=== PATIENT | female | born 1970 | race Caucasian/White ===

== ENCOUNTER → 2017-07-01 16:47 | Outpatient (CLI) | payer MEDICARE, MEDICAID, SELFPAY ==
--- NOTE | 2017-07-01 16:50 | CT_ITS ---
CT Spine Cervical W/O Contrast INDICATION: Cervical radiculopathy-right. Prior lumbar surgery, diabetes. COMPARISON: None TECHNIQUE: High-resolution axial CT imaging of the cervical spine. Radiation dose optimization technique applied. FINDINGS: There is mild cervical kyphosis, which may be positional. Height of the vertebral bodies is preserved. Anterior osteophytes are noted and C3-4 and C5-6. Uncovertebral joint arthritic changes are noted at C3-4. There is no evidence of osseous spinal canal or neuroforaminal narrowing at any level. There is no evidence of acute fracture. Prevertebral soft tissue stripe is within normal limits. Mild vascular calcifications are noted at the left carotid bifurcation. Thyroid gland is diffusely heterogenous and the left lobe of the thyroid is enlarged with a dominant 1 cm nodule, consider further evaluation with ultrasound if clinically warranted. CT/Spine Cervical without Contras IMPRESSION: Mild degenerative changes at the cervical spine. No evidence of acute fracture. Heterogenous enlargement of the thyroid gland with a 1 cm left thyroid nodule, follow-up with ultrasound as clinically warranted. at 2300 Reported and signed by: Rebekah Hatch MD Electronically Signed: Rebekah Hatch MD at 21:59 EST Tel , Service support ,
== END ==
PROVIDERS: Family Provider Family Medicine; PCP Family Medicine; Visit Provider Family Medicine
DX: M54.12 Radiculopathy, cervical region (principal)
CPT/HCPCS: 72125

== ENCOUNTER 2017-08-25 02:45 | Emergency (ER) | payer MEDICARE, MEDICAID, SELFPAY ==
[2017-08-25 02:47] VITALS: BP 159/68; PULSE 87; RESP 17; TEMP 36.9; O2SAT 97; BMI 37.8
--- NOTE | 2017-08-25 03:10 | CT_ITS ---
STUDY: CT ABDOMEN AND PELVIS WITHOUT CONTRAST REASON FOR EXAM: Female, 46 years old. Abdominal pain RADIATION DOSAGE (If Supplied By Facility): CTDIvol = ( 18.04 ) mGy, DLP = ( 906.14 ) mGycm TECHNIQUE: Transaxial images were obtained from the dome of the diaphragm to the symphysis pubis without oral contrast, and without intravenous contrast. Sagittal and coronal images were reconstructed. Individualized dose optimization techniques were used for this CT. COMPARISON: 06/26/2014 FINDINGS: The visualized lung bases are unremarkable. The visualized portions of the heart are within normal limits. Normal liver. There are surgical clips in the gallbladder fossa consistent with a prior cholecystectomy. Normal spleen. Normal pancreas. Normal bilateral adrenal glands. Nonobstructing right renal calculi. Normal left kidney. Normal visualized stomach. A small duodenal diverticulum is noted. There are multiple colonic diverticula consistent with diverticulosis. There is non-visualization of the appendix. Normal abdominal aorta. Normal inferior vena cava. Normal retroperitoneum. Normal urinary bladder. Probable 2.9 cm left ovary cyst. Normal abdominal wall. Thoracic spine stimulator. L5 laminectomies. CT/Abdomen/Pelvis without Cont IMPRESSION: No evidence of acute intestinal pathology or acute obstructive uropathy. Duodenal diverticulum. Probable 2.9 cm left ovary cyst. Electronically Signed: Victorino Neumann MD at 4:12 EDT Tel , Service support ,
[2017-08-25] MEDS: Morphine 4 MG/ML Syringe IV (03:17)
[2017-08-25] MEDS: Ondansetron 4 MG/2 ML Vial IV (03:18)
--- NOTE | 2017-08-25 03:21 | ED.VISSUMM ---
- ER Visit Summary Date of Service: 08/25/17 Chief Complaint: Abdominal pain History of Present Illness: The patient is a 46 F intermittent mid abdominal pain since Tuesday. Pain worse this evening, more severe. 3 days ago symptoms seem to improve with vomiting. Has not vomited since. Tolerating oral fluids. Normal bowel movement prior to arrival. History of cholecystectomy, appendectomy, partial hysterectomy with right oophorectomy. No history of pancreatitis. No alcohol history. Last meal was supper. Chills without sweats. No urinary symptoms. No previous similar symptoms in the past. Patient on tramadol for history of multiple back surgeries. Does not follow general surgeon. No history of bowel obstructions. Physical Examination: General: Alert and oriented ?3, uncomfortable HEENT: Normocephalic, atraumatic. Moist mucosa membranes Neck: supple, nontender. Cardiovascular: Regular rate and rhythm, no murmurs Respiratory: Normal breath sounds, symmetric, no distress Abdomen: Soft, mild mid abdominal tenderness without guarding or rebound. Hypoactive bowel sounds. Extremities: Nontender, no edema, pulses intact ?4 Neuro: no focal neurological deficits. Test Results: WBC 7.9, Hemoccult 14.2. Lipase 197. Liver enzymes normal. CT abdomen pelvis: No acute disease. Left 2.9 cm left ovarian cyst. Emergency Department Course and Treatment: Patient uncomfortable on examination. History of multiple bowel surgeries. Abdominal labs were negative. Initially treated with morphine and Zofran and fluids. Addition Dilaudid was given. CT abdomen pelvis notes no intra-abdominal process. No signs of obstruction. Incidental finding 2.9 cm left ovarian cyst. Reevaluation symptoms much more improved. Abdomen remains soft. Patient had normal bowel movement prior to arrival. Discussed with patient monitoring symptoms. She will be placed on Bentyl. She develops nausea and vomiting, decreased flatus or worsening symptoms to return for reevaluation. She will follow-up with [facility] for her ovarian cysts. All questions were answered. Treatment Plan: [] Disposition: Discharge Impression: 1. Nonspecific abdominal pain 2. Left ovarian cysts This note was generated with [employer] software. It may contain incorrect words, spelling, and punctuation that were not noted in review of the chart prior to signing ED Disposition - Plan for ED Patient: Disposition: Home or Assisted Living Chief Complaint: Abd Pain Diagnosis: Nonspecific abdominal pain, Left ovarian cyst Instructions: ED Abdominal Pain Unkn Cause, What Are Ovarian Cysts? Prescriptions: Dicyclomine HCl [Bentyl] 10 mg PO Q6H PRN PRN #12 capsule PRN Reason: abdominal pain Referrals: Margo Tatum DO [Primary Care Provider] - 3-5 Days if not improving Lyudmila Garrido MD [STAFF PHYSICIAN] - 5-7 Days Additional Instructions: 2.9cm left ovarian cyst.
[2017-08-25 03:24] LABS: Absolute Lymphocyte Count 1.55 X10^3/ul (0.83-4.51); Absolute Neutrophil Count 5.8 X10^3/uL (2.0-7.7); Basophil# 0.01 X10^3/uL; Basophil% 0.1 % (0-1); Eosinophil# 0.06 X10^3/uL; Eosinophils% 0.8 % (0-5); Hematocrit 42.8 % (37-47); Hemoglobin 14.2 g/dl (12.0-15.0); Lymphocyte # 1.55 X10^3/ul (4.0); Lymphocyte % 19.5 % (19-41); Mean Corp Hgb Conc 33.2 g/gl (32-36); Mean Corpuscular Hgb 31.2 pg (27.0-32.0); Mean Corpuscular Volume 94.1 fL (81-99); Monocyte# 0.53 X10^3/uL; Monocyte% 6.7 % (0-10); Neutrophil # 5.78 X10^3/uL (2.7-7.7); Neutrophil % 72.8 % (47-70); Platelet Count 264 K/mm3 (150-450); RBC Distribution Width CV 15.2 % (11.6-14.6); Red Blood Count 4.55 M/mm3 (4.2-5.4); White Blood Count 7.9 K/mm3 (4.4-11.0)
[2017-08-25 03:25] LABS: POSITIVE COUNT NO; POSITIVE DIFFERENTIAL NO; POSITIVE MORPHOLOGY NO
[2017-08-25] MEDS: HYDROmorphone 1 MG/ML Syringe IV (03:52)
[2017-08-25 03:58] LABS: ALB/GLOB Ratio 0.8 RATIO (0.9-2.4); AST(SGOT) 21 U/L (15-37); Alanine Aminotransfer ALT/SGPT 22 U/L (13-56); Albumin, Serum 3.6 g/dL (3.2-5.0); Alkaline Phosphatase 57 U/L (45-117); Anion Gap 7 (5-15); BUN 13 mg/dL (7-18); BUN/Creat Ratio 18.1 RATIO (10-20); Calcium,Total 8.8 mg/dL (8.5-10.1); Chloride 105 mmol/L (98-107); Creatinine, Serum 0.72 mg/dL (0.55-1.02); EST Glomerular Filtration Rate 92 mL/min (>60); Est Glom Filt Rate - Afr Amer 112 mL/min (>60); Estimated Creatinine Clearance 83.41 ml/min; Globulin 4.7 g/dL (2.2-4.2); Glucose 112 mg/dL (74-106); Lipase 197 U/L (73-393); Potassium 3.8 mmol/L (3.5-5.1); Protein, Total 8.3 g/dL (6.4-8.2); Sodium Level 140 mmol/L (136-145)
[2017-08-25] MEDS: Dicyclomine 10 MG Capsule 20 MG PO (04:37)
[2017-08-25 04:40] VITALS: BP 140/75; PULSE 80; RESP 16; O2SAT 95
== END 2017-08-25 04:44 | disposition home or self-care (01) ==
PROVIDERS: Emergency Provider Emergency Medicine; Family Provider Family Medicine; PCP Family Medicine
DX: R10.9 Unspecified abdominal pain (principal); N83.202 Unspecified ovarian cyst, left side; Z79.899 Other long term (current) drug therapy; Z90.49 Acquired absence of other specified parts of digestive tract; Z90.710 Acquired absence of both cervix and uterus
CPT/HCPCS: 74176; 80053; 83690; 85025; 96361; 96374; 96375; 99284; J7030; J7040; A4216; J2405

== ENCOUNTER → 2017-10-03 12:19 | Outpatient (CLI) | payer MEDICARE, MEDICAID, SELFPAY ==
--- NOTE | 2017-10-03 12:22 | US_ITS ---
STUDY: ULTRASOUND OF THE FEMALE PELVIS - COMPLETE REASON FOR EXAM: Female, 46 years old. Ovarian cyst follow-up LMP: Unknown. TECHNIQUE: Transabdominal, patient refused transvaginal probe TECHNICAL QUALITY: Adequate. COMPARISON: CT scan from 08/25/2017 FINDINGS: The uterus has been previously removed The right ovary was previously removed The left ovary is visualized. The left ovary measures 3.7 x 3.4 x 2.7 cm. There is a complex 1.4 x 1.9 x 3.1 cm cyst. There is normal arterial and normal venous vascularity. There is no fluid in the cul-de-sac. The bladder is sonographically normal US/Pelvic (Non ) IMPRESSION: Complex left ovarian cyst measuring 3.1 cm. Its size is unchanged from the previous CT. Previous removal of the uterus and right ovary No demonstrated free fluid Electronically Signed: Ramu Diamond MD at 13:24 EDT , Service support ,
== END ==
PROVIDERS: Family Provider Family Medicine; PCP Family Medicine; Visit Provider Family Medicine
DX: R10.2 Pelvic and perineal pain (principal); N83.209 Unspecified ovarian cyst, unspecified side
CPT/HCPCS: 76856

== ENCOUNTER → 2017-10-21 12:21 | Outpatient (CLI) | payer MEDICARE, MEDICAID, SELFPAY ==
[2017-10-21 13:01] LABS: Amphetamine Urine VISTA NEGATIVE (<1000 ng/mL); Barbiturate Urine VISTA NEGATIVE (< 200 ng/mL); Benzodiazepine Urine VISTA NEGATIVE (< 200 ng/mL); Cocaine Urine VISTA NEGATIVE (< 300 ng/mL); Ecstacy Urine VISTA NEGATIVE (< 500 ng/mL); Methadone Urine VISTA NEGATIVE (< 300 ng/mL); PCP Urine VISTA NEGATIVE (< 25 ng/mL); THC Urine VISTA NEGATIVE (< 50 ng/mL); Vista UDS pH Range 8
== END ==
PROVIDERS: Family Provider Family Medicine; PCP Family Medicine; Visit Provider Anesthesiology Pain Medicine
DX: F11.20 Opioid dependence, uncomplicated (principal)
CPT/HCPCS: 80307

== ENCOUNTER → 2017-11-14 08:58 | Outpatient (CLI) | payer MEDICARE, MEDICAID, SELFPAY ==
--- NOTE | 2017-11-14 08:58 | DT_ITS ---
This patient was seen during an EMR downtime November 07, 2017 - November 14, 2017. This patient may have a combination of paper and electronic documentation or all paper documentation. All documentation is viewable within the e-chart portion of [facility] for each patient visit.
--- NOTE | 2017-11-14 09:02 | US_ITS ---
STUDY: ULTRASOUND OF THE FEMALE PELVIS - COMPLETE REASON FOR EXAM: Female, 46 years old. Six-week follow-up ovarian cyst. History of hysterectomy and right oophrectomy. TECHNIQUE: Transabdominal and Transvaginal TECHNICAL QUALITY: Adequate. COMPARISON: October 03, 2017. FINDINGS: The uterus is surgically absent. The right ovary is surgically absent. There are no visualized right adnexal masses or complex lesions. The left ovary is not visualized. There is no visualized left adnexal mass or complex lesion. There is no fluid in the cul-de-sac. The urinary bladder is grossly unremarkable. US/Pelvic (Non ) IMPRESSION: 1. Status post resection of the uterus and right ovary. 2. The left ovary is not visualized. Electronically Signed: Avi Kapoor DO at 16:20 EDT Tel [phone], Service support ,
== END ==
PROVIDERS: Family Provider Family Medicine; PCP Family Medicine; Visit Provider Family Medicine
DX: N83.209 Unspecified ovarian cyst, unspecified side (principal); Z90.710 Acquired absence of both cervix and uterus; Z90.721 Acquired absence of ovaries, unilateral
CPT/HCPCS: 76856

== ENCOUNTER → 2017-12-14 13:04 | Outpatient (CLI) | payer MEDICARE, MEDICAID, SELFPAY ==
--- NOTE | 2017-12-14 13:21 | CDU_ITS ---
Reason For Study: Family Hx of Carotid Disease Rt. Velocities/BP Lt. Velocities/BP Prox CCA 103/23 cm/sec. Prox CCA 121/35 cm/sec. Mid CCA 87/19 cm/sec. Mid CCA 79/25 cm/sec. Dist CCA 65/22 cm/sec. Dist CCA 70/26 cm/sec. Prox ICA 71/28 cm/sec. Prox ICA 76/26 cm/sec. Mid ICA 81/31 cm/sec. Mid ICA 100/45 cm/sec. Dist ICA 85/36 cm/sec. Dist ICA 108/45 cm/sec. Rt. ICA/CCA = 0.97. Lt. ICA/CCA = 1.36. Prox ECA 82/13 cm/sec. Prox ECA 84/18 cm/sec. Rt. Vert. 72/25 cm/sec. Lt. Vert. 42/15 cm/sec. Right Extracranial There is intimal thickening but no significant atherosclerotic plaque noted in the right common carotid artery. There is homogeneous, smooth atherosclerotic plaque noted in the right internal carotid artery. There is no significant atherosclerotic plaque noted in the right external carotid artery. Antegrade flow is noted in the right vertebral artery. Left Extracranial There is intimal thickening but no significant atherosclerotic plaque noted in the left common carotid artery. There is heterogeneous, irregular atherosclerotic plaque noted in the left internal carotid artery. There is no significant atherosclerotic plaque noted in the left external carotid artery. Antegrade flow is noted in the left vertebral artery. Procedure Carotid Duplex 71724. Exam performed in department. Interpretation Summary Mild (<50%) stenosis right extracranial internal carotid. Mild (<50%) stenosis left extracranial internal carotid. Flow within the vertebral arteries is antegrade bilaterally. Ordering Physician: Aidan Baird Referring Physician: Aidan Baird Performed By: Randa Mitchell, NEEL, RVT
== END ==
PROVIDERS: Family Provider Family Medicine; PCP Family Medicine; Visit Provider Family Medicine
DX: I65.23 Occlusion and stenosis of bilateral carotid arteries (principal); I77.9 Disorder of arteries and arterioles, unspecified; I25.10 Atherosclerotic heart disease of native coronary artery without angina pectoris; M54.2 Cervicalgia
CPT/HCPCS: 93880

== ENCOUNTER 2018-02-03 23:41 | Emergency (ER) | payer MEDICARE, MEDICAID, SELFPAY ==
[2018-02-03 23:42] VITALS: BP 135/83; PULSE 96; RESP 18; TEMP 36.8; O2SAT 96; BMI 37.8
--- NOTE | 2018-02-04 00:39 | ED.VISSUMM ---
- ER Visit Summary Date of Service: 02/04/18 Chief Complaint: Nausea and vomiting History of Present Illness: The patient is a 47 F nausea and vomiting since 1 PM today. One episode at home, 2 episodes at work, last time an hour ago. No hematemesis. No diarrhea. No fevers. No abdominal pain. No urinary symptoms. History of hysterectomy. Feeling nauseated currently. Physical Examination: General: Alert and oriented ?3, no acute distress HEENT: Normocephalic, atraumatic. Moist mucosa membranes Neck: supple, nontender. Cardiovascular: Regular rate and rhythm, no murmurs Respiratory: Normal breath sounds, symmetric, no distress Abdomen: Soft, nontender, nondistended Extremities: Nontender, no edema, pulses intact ?4 Neuro: no focal neurological deficits. Test Results: [] Emergency Department Course and Treatment: Patient nontoxic, nonsurgical abdomen. Vital signs stable. Treated oral Zofran, p.o. challenge no difficulties. Short prescription for nausea medicines. Continue oral hydrations. Follow-up with PCP. All questions were answered. Treatment Plan: [] Disposition: Discharge Impression: 1. Nausea and vomiting This note was generated with [employer] dictation software. It may contain incorrect words, spelling, and punctuation that were not noted in review of the chart prior to signing ED Disposition - Plan for ED Patient: Disposition: Home or Assisted Living Chief Complaint: Nausea/Vomiting Diagnosis: Nausea and vomiting Instructions: ED Nausea Vomiting Prescriptions: Ondansetron [Zofran Odt] 4 mg PO Q8H PRN PRN #10 tablet PRN Reason: Nausea Referrals: Margo Tatum DO [Primary Care Provider] - 3-5 Days
[2018-02-04] MEDS: Ondansetron ODT 4 MG Tablet 8 MG PO (00:45)
[2018-02-04 01:49] VITALS: BP 134/88; PULSE 79; O2SAT 97
== END 2018-02-04 01:51 | disposition home or self-care (01) ==
PROVIDERS: Emergency Provider Emergency Medicine; Family Provider Family Medicine; PCP Family Medicine
DX: R11.2 Nausea with vomiting, unspecified (principal); E11.9 Type 2 diabetes mellitus without complications; I10 Essential (primary) hypertension; Z87.891 Personal history of nicotine dependence; Z90.710 Acquired absence of both cervix and uterus; Z79.899 Other long term (current) drug therapy
CPT/HCPCS: 99283

== ENCOUNTER 2018-03-17 10:05 | Emergency (ER) | payer MEDICARE, SELFPAY ==
[2018-03-17 10:05] VITALS: BP 163/87; PULSE 83; RESP 17; TEMP 36.6; O2SAT 100; BMI 56.5
[2018-03-17] MEDS: HYDROmorphone 1 MG/ML Syringe IM (10:23)
[2018-03-17] MEDS: Orphenadrine 60 MG/2 ML Ampul IM (10:24)
[2018-03-17] MEDS: Ketorolac 60 MG/2 ML Vial IM (10:24)
--- NOTE | 2018-03-17 11:02 | ED.DCSUM_ITS ---
- ER Visit Summary Date of Service: 03/17/18 Chief Complaint: [Back pain] History of Present Illness: The patient is a 47 F [presents the emergency department complaint of back pain that started yesterday. Patient states that she was at work when she had sudden onset of pain in her low back and radiating down both legs. Patient states that her legs are always numb and she has a history of chronic back pain. Patient states that she has had similar pains multiple times in the past. Patient sees Dr. Solano pain management and is scheduled to have injections in her back in 5 days. Patient denies any trauma. She denies any fever. She denies urinary symptoms. Denies weakness in extremities. Patient states she lost control of her bowels one time last week but that was before all this pain started. She has not had any issue with loss of bowel or bladder function since.] Physical Examination: [HEENT-PERRLA, EOMI. Cranial nerves II through XII grossly intact. TMs clear. Mucous membranes moist. No adenopathy. Cardiovascular-regular rate and rhythm without murmur or ectopy Lungs-clear to auscultation, chest wall stable without crepitus or subcu emphysema Abdomen-normoactive bowel sounds, soft, nontender, no rebound or rigidity, no peritoneal signs. Back exam-patient has diffuse tenderness over the lumbar paraspinal musculature and into the buttocks bilaterally. Patient has negative straight leg raises. Deep tendon reflexes are plus 2 out of 4 bilaterally at the patella and Achilles. Patient does have normal sensation to light touch. Extremities-intact ?4, normal range of motion, normal pulses, atraumatic] Test Results: [None indicated] Emergency Department Course and Treatment: [Patient was medicated with Dilaudid, Toradol, and Norflex in the emergency department. Patient had good pain relief with this. Patient was discussed with her pain management doctor who was comfortable with a few pain pills for home and follow-up with his office.] Treatment Plan: [Patient will be given a prescription for Flexeril and [place].] Disposition: [Discharged home in stable condition] Impression: [Acute exacerbation of chronic back pain] This note was generated with [employer] software. It may contain incorrect words, spelling, and punctuation that were not noted in review of the chart prior to signing ED Disposition - Plan for ED Patient: Chief Complaint: Back Referrals: Malys,Margo, DO [Primary Care Provider] -
--- NOTE | 2018-03-17 11:04 | DCINST.ED_ITS ---
ED Disposition - Plan for ED Patient: Chief Complaint: Back Instructions: ED Neck Back Pain General, ED Spasm Back No Trauma Prescriptions: Hydrocodone Bitart/Apap 5-325 [[place] 5MG-325MG] 1 tab PO Q4H PRN PRN 2 Days #10 tab PRN Reason: Pain Cyclobenzaprine [Flexeril] 10 mg PO TID PRN #20 tab PRN Reason: Muscle Spasm Referrals: Margo Tatum DO [Primary Care Provider] - Darline Solano MD [STAFF PHYSICIAN] - 3-5 Days
[2018-03-17 11:48] VITALS: PULSE 72; RESP 16; O2SAT 99
== END 2018-03-17 11:48 | disposition home or self-care (01) ==
LOC: ED 10:42
PROVIDERS: Emergency Provider Emergency Medicine; Family Provider Family Medicine; PCP Family Medicine
DX: M54.5 Low back pain (principal); M54.2 Cervicalgia; G89.29 Other chronic pain; E11.9 Type 2 diabetes mellitus without complications; I10 Essential (primary) hypertension; Z79.899 Other long term (current) drug therapy
CPT/HCPCS: 96372; 99282

== ENCOUNTER → 2018-05-11 08:56 | Outpatient (CLI) | payer MEDICARE, SELFPAY ==
--- NOTE | 2018-05-11 09:01 | BI_ITS ---
MAMMOGRAPHY - BILATERAL DIAGNOSTIC REASON FOR EXAM: Female, 47 years old. One-month history of the apical lump in the upper lateral aspect of the right breast. PERTINENT HISTORY: Aunt with breast cancer. TECHNIQUE: Digital bilateral breast buddy (3D mammographic acquisition) in the CC and MLO projections. 2-D mediolateral oblique (MLO) and craniocaudad (CC) views of both breasts were obtained. CAD: Full Field Digital Mammography with Computer Added Detection was performed. COMPARISON: Comparison is made with prior examination dated June 28, 2014. FINDINGS: Breast Composition: The breasts are almost entirely fatty. There are no dominant masses or suspicious calcifications. There is a stable 5.5 mm by 6.4 mm well-defined nodular density with a central fatty hilum in the upper slightly outer portion of the right breast suggests a small lymph node. No other significant abnormalities are identified. There has been no significant change since the prior study. BI/DIAG MAMM W/CAD, BILAT IMPRESSION: Stable bilateral diagnostic mammogram. With the patient's history of a palpable abnormality in the upper outer quadrant of the right breast, correlation with ultrasound is recommended. ASSESSMENT CATEGORY: BIRADS Category 0: Incomplete. Need additional imaging evaluation. A letter regarding these results will be sent to the patient by the facility within 30 days. Approximately 10% of breast cancers are not detected by mammography. A normal mammogram should not delay biopsy of a clinically suspicious abnormality. Electronically Signed: Mario Alberto Joy MD at 10:36 EST Tel [phone], Service support ,
--- NOTE | 2018-05-11 09:01 | US_ITS ---
STUDY: ULTRASOUND BREAST - RIGHT REASON FOR EXAM: Female, 47 years old. Pain in the right breast. TECHNIQUE: Axial and longitudinal images of the RIGHT breast were performed with a high resolution ultrasound transducer. COMPARISON: Comparison is made with prior mammogram done earlier in the day. FINDINGS: RIGHT Breast: The upper outer quadrant of the right breast was examined by ultrasound. There is homogeneous fibroglandular tissue. No solid or cystic mass lesion is seen. US/Breast Limited Unilateral IMPRESSION: Unremarkable sonographic examination of the upper outer quadrant of the right breast. ASSESSMENT CATEGORY: BIRADS Category 1: Negative. A letter regarding these results will be sent to the patient by the facility within 30 days. Electronically Signed: Mario Alberto Joy MD at 10:20 EST Tel [phone], Service support ,
== END ==
PROVIDERS: Family Provider Family Medicine; PCP Family Medicine; Referring Provider Family Medicine; Visit Provider Family Medicine
DX: N63.10 Unspecified lump in the right breast, unspecified quadrant (principal); N64.4 Mastodynia
CPT/HCPCS: 76642; 77062; 77066; G0279

== ENCOUNTER 2018-05-13 07:52 | Emergency (ER) | payer MEDICARE, SELFPAY ==
[2018-05-13 07:54] VITALS: BP 164/91; PULSE 80; RESP 18; TEMP 36.3; O2SAT 100; BMI 38.2
--- NOTE | 2018-05-13 08:07 | CT_ITS ---
STUDY: CT CHEST WITHOUT CONTRAST REASON FOR EXAM: Female, 47 years old. Right-sided chest mass for one month RADIATION DOSAGE (If Supplied By Facility): CTDIvol = ( 18.56 ) mGy, DLP = ( 635.26 ) mGycm TECHNIQUE: Transaxial imaging was performed without the administration of intravenous contrast material. Individualized dose optimization techniques were used for this CT. COMPARISON: 06/15/2016, 04/14/2016 FINDINGS: Stable low-density lesion in the left thyroid lobe measuring up to 2 cm. Consider ultrasound correlation. Stable 3 mm nodule in the right lower lobe on image 73 of series 4. This can be considered benign given stability since April 2016. There is no demonstrated pleural abnormality. Normal heart and pericardium. Normal mediastinum. Normal hilar regions. Normal unenhanced pulmonary arteries. Normal aorta arch and descending thoracic aorta. Thoracic spine stimulator. Cholecystectomy. CT/Chest without Contrast IMPRESSION: Stable benign nodule in the right lower lobe. Stable low density lesion in the left thyroid. Consider ultrasound follow-up. No masses are seen in the right lung or chest wall. Electronically Signed: Victorino Neumann MD at 8:46 EST Tel , Service support ,
--- NOTE | 2018-05-13 08:09 | ED.VISSUMM ---
- ER Visit Summary Date of Service: 05/13/18 Chief Complaint: Right upper chest pain History of Present Illness: The patient is a 47 F who has had right upper chest pain for 1 month. She noticed a lump there at that time. She has had a mammogram and ultrasound which showed it was negative. This area is painful. She takes daily tramadol and ibuprofen and it is not helping. There has been no drainage or redness to the area. No fevers. She denies trauma. It is worse when laying on the right side. Physical Examination: Vital signs reviewed. HEENT exam unremarkable. Heart is regular rate and rhythm without murmurs. Lungs are clear to auscultation. She does have right upper chest tenderness. No palpable masses. No erythema. Abdomen is soft and nontender. Extremities reveal no edema. Skin exam normal. Neurologic exam normal. Test Results: CT scan of the chest reveals stable thyroid and lung nodules. The patient is aware of these nodules. There is no chest wall masses. She received Toradol here. She will continue her home medications and use ice on her chest wall. She will follow-up with her PCP for further evaluation. Emergency Department Course and Treatment: [] Treatment Plan: [] Disposition: Discharge Impression: Right chest wall pain. This note was generated with [employer] dictation software. It may contain incorrect words, spelling, and punctuation that were not noted in review of the chart prior to signing ED Disposition - Plan for ED Patient: Chief Complaint: Chest Other Referrals: Margo Tatum DO [Primary Care Provider] -
[2018-05-13] MEDS: Ketorolac 60 MG/2 ML Vial IM (08:46)
--- NOTE | 2018-05-13 08:50 | ED.DEP ---
ED Disposition - Plan for ED Patient: Disposition: Home or Assisted Living Chief Complaint: Chest Other Instructions: ED Contusion Chest Wall Referrals: Margo Tatum DO [Primary Care Provider] -
[2018-05-13 09:02] VITALS: PULSE 80; RESP 17; O2SAT 100
== END 2018-05-13 09:04 | disposition home or self-care (01) ==
PROVIDERS: Emergency Provider Emergency Medicine; Family Provider Family Medicine; PCP Family Medicine
DX: R07.89 Other chest pain (principal); E04.1 Nontoxic single thyroid nodule; R91.1 Solitary pulmonary nodule; E11.9 Type 2 diabetes mellitus without complications; I10 Essential (primary) hypertension; M54.9 Dorsalgia, unspecified; Z79.899 Other long term (current) drug therapy
CPT/HCPCS: 71250; 96372; 99282

== ENCOUNTER 2018-06-07 11:00 | Outpatient (RCR) | payer MEDICARE, SELFPAY ==
--- NOTE | 2018-05-24 11:43 | HP.PTEVAL ---
Patient's Visit Information PITO CLARK is a 47 year old F referred to Physical Therapy by Darline Solano MD with a diagnosis of Back pain/leg pain. Date of Evaluation: 05/24/18 Physical Therapist: Arjun Shafer, VIKTORIAT, OCS, CSCS - Visit Plan Frequency: 2-3x /Week Duration: 4-6 Weeks Plan: 2-3x/week for 3-6 weeks to start with aquatic therapy to teach core and LE strength and HS/gastroc stretches and progress to I whcih patient thinks is realisticc for her despite her fear of the water. - Subjective Findings: Dr. Solano wants her to do PT on legs for numbness and weakness. Sees Xiomara for nerve damage after a bad back surgery in 2011 when she had a ruptured disc and discectomy adn nicked spinal fluid. Has had problems since. Not worse now but is getting weaker. Has a stimulator implanted for pain. Gets tramadol every 6 hours for years. Pain is in LB 4-7 constant worse with bending and twisting. 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 Sleep is up and down. Does al Basic ADLs on own but standing in one spot in shower is worse. Sitting is usually better in good chair. Been through therapy for back pain and didn't help pain much. 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 lIVES IN SECOND FLOOR APARTMENT ADN TAKES 5 MINUTES TO GET UP STEPS DUE TO R LEG WEAKNESS. - Pain LBP central and down both legs. Pain Intensity (Out of 10): 4 Pain Intensity Range: 4, 7 - Objective Walks I slowly with a R trendelenberg. Trasnfers I but obvious pain with bed transfers. LB AROM ext mod limtied adn pianful, flexion max limited and painful. SB min limited and ipsilateral pain. Pelvic tilt needs many many VC and tactile cues to get down pat. reflexes 1/3 patella sudhir chilles. Sensation is numb B LE all the time btu can feel light touch. Stregnth is 3+/5 in LE without myotomal abnormalities. LE aROM WFL, HS and gastroc very tight. Tender to touch in LB paraspinals and into upper gluts all over bilaterally. - Goals Goal 1:: Patient I in appropriate pool based ex to minimize future problems Goal Time Frame: 4-6 Weeks Goal 2:: Patient feel 50% better in strength Goal Time Frame: 4-6 Weeks Goal 3:: Trasnfer in bed without pain increase Goal Time Frame: 4-6 Weeks Goal 4:: Exit chair without needing UE. Goal Time Frame: 4-6 Weeks - Rehabilitation Potential Physical Therapy Diagnosis: LBO degeneration and weakness in LE. Rehabilitation Potential: Questionable - Anticipated Interventions Patient/Client Instruction: Educate patient on: Condition, Plan of Care For the Purpose of:: To decrease pain, To improve muscle performance and motor function, To improve ability of physical actions for home/community/work/leisure Therapeutic Exercise to Include: Strength training, Flexibilty training, In an aquatic setting, Dynamic Lumbar Stabilization For the Purpose of:: To decrease pain, To improve muscle performance and motor function, To decrease level of supervision to perform tasks Thank you for the opportunity to evaluate your patient. For Medicare and Medicare HMO plans, please review the plan of care and approve it. It will need to be FAXED BACK to us at [phone] for Medicare purposes. For Medicare only, by signing this I certify the plan of care. Please let me know if there are questions or concerns regarding this plan of care. Physician Signature: Date:
--- NOTE | 2018-08-10 11:08 | HP.PT.NRP ---
HP - Discharge Summary (1) - Patient Information PITO CLARK was seen in my office for initial evaluation on 05/24/18. The following Plan of Care was established for this patient: Initial Frequency: 2-3x /Week Initial Duration: 4-6 Weeks - Anticipated Interventions Patient/Client Instruction: Educate patient on: Condition, Plan of Care For the Purpose of:: To decrease pain, To improve muscle performance and motor function, To improve ability of physical actions for home/community/work/leisure Therapeutic Exercise to Include: Strength training, Flexibilty training, In an aquatic setting, Dynamic Lumbar Stabilization For the Purpose of:: To decrease pain, To improve muscle performance and motor function, To decrease level of supervision to perform tasks This patient was last seen in our office 06/07/18. Pertinent comments regarding their Physical therapy will appear below: Pt seen 3 visits adn did nto attend last three scheduled. At this point it has been over two months and I will disconitnue due to nonattendance. At this point I will be discontinuing this patient from physical therapy. I would be happy to see this patient again in the future if found appropriate by the physician. Thank you! Arjun Shafer, DPT, OCS, CSCS
--- OUTSIDE RECORDS SUMMARY | 2018-08-25 15:06 | XMS RPT_ITS ---
:1970 Author Organization OHIP Support Name Relationship Address Phone D Unavailable Unavailable Unavailable W[place] ANGELINAY Unavailable [address] + [address] [place] [address] D Unavailable Unavailable Unavailable WASKIWECEZ DANI Unavailable [address] + [address] [place] [address] D Unavailable Unavailable Unavailable WASKIWECEZ DANI Unavailable [address] + [address] [place] [address] D Unavailable Unavailable Unavailable WASKIWECEZ DANI Unavailable [address] + [address] [place] [address] D Unavailable Unavailable Unavailable W[place]IWECE[place] DANI Unavailable [address] + [address] [place] [address] D Unavailable Unavailable Unavailable W[place]IWECE[place] DANI Unavailable [address] + [address] [place] [address] D Unavailable Unavailable Unavailable W[place]IWECE[place] DANI Unavailable [address] + [address] [place] [address] D Unavailable Unavailable Unavailable W[place]IWECEZ DANI Unavailable [address] + [address] [place] [address] D Unavailable Unavailable Unavailable W[place]IWECEZ DANI Unavailable [address] + [address] [place] [address] D Unavailable Unavailable Unavailable W[place]IWECE[place]ROCKY Unavailable [address] + [address] [place] [address] D Unavailable Unavailable Unavailable [place] ANGELINAY Unavailable [address] + [address] [place] [address] Care Team Providers Name Role Phone Basali, Ayman Attending Unavailable Basali, Ayman Referring Unavailable Malys, Margo Primary Care Unavailable Brie, Aidan Attending Unavailable Brie, Aidan Referring Unavailable Malys, Margo Primary Care Unavailable Malys, Margo Primary Care Unavailable Le, Miguel Attending Unavailable Miedel, Eleni Attending Unavailable Miedel, Eleni Referring Unavailable Malys, Margo Primary Care Unavailable Basali, Ayman Attending Unavailable Basali, Ayman Referring Unavailable Malys, Margo Primary Care Unavailable Miedel, Eleni Attending Unavailable Malys, Margo Primary Care Unavailable Brie, Aidan Attending Unavailable Brie, Aidan Referring Unavailable Malys, Margo Primary Care Unavailable Malys, Margo Primary Care Unavailable Le, Miguel Attending Unavailable Malys, Margo Primary Care Unavailable Ungur, Remus Attending Unavailable Miedel, Eleni Attending Unavailable Miedel, Eleni Referring Unavailable Malys, Margo Primary Care Unavailable Malys, Margo Primary Care Unavailable John Alva Attending Unavailable PROBLEMS PROBLEMS DATE TYPE CONDITION / CODE ATTENDING STATUS SOURCE 03/17/2018 Unknown M54.9 - Dorsalgia, Ungur, Remus Active [place] unspecified / Community M54.9(ICD-10) Hospital Repository 12/21/2017 Unknown 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, Hospital unspecified / Repository I77.9(ICD-10) 12/21/2017 Unknown N83.209 - Miedel, Eleni Active [place] Unspecified ovarian Community cyst, unspecified Hospital side / Repository N83.209(ICD-10) 12/21/2017 Unknown F11.20 - Opioid Basali, Ayman Active [place] dependence, Community uncomplicated / Hospital F11.20(ICD-10) Repository 12/21/2017 Unknown R10.2 - Pelvic and Miedel, Eleni Active [place] perineal pain / Community R10.2(ICD-10) Hospital Repository 12/21/2017 Unknown R10.9 - Unspecified Le, Miguel Active [facility] abdominal pain / Community R10.9(ICD-10) Hospital Repository 12/21/2017 Unknown M54.12 - BrieAidan christiansen Active [facility] Radiculopathy, Community cervical region / Hospital M54.12(ICD-10) Repository PROCEDURES PROCEDURES No Procedure Records FoundRESULTS RESULTS INITAL EVALUATION (1) Observed: 05/26/2018 Status: F Source: [place] - PT 6:[address] [facility] REPOSITORY [facility] [address] [place] [address] Fax REHABILITATION SERVICES INITIAL EVALUATION MR#: [id number] Acct: [id number] Name: PITO HENDRIX Rep #: [id number] : 1970 47 From: Arjun Shafer DPT, OCS, CSCS Referring Dr.: Darline Solano MD Status: REG RCR Insurance: [facility] *IN NETWORK SELF PAY INSURANCE Patient's Visit Information PITO HENDRIX is a 47 year old F referred to Physical Therapy by Darline Solano MD with a diagnosis of Back pain/leg pain. Date of Evaluation: 05/24/18 Physical Therapist: Arjun Shafer DPT, OCS, CSCS - Visit Plan Frequency: 2-3x /Week Duration: 4-6 Weeks Plan: 2-3x/week for 3-6 weeks to start with aquatic therapy to teach core and LE strength and HS/gastroc stretches and progress to I whcih patient thinks is realisticc for her despite her fear of the water. - Subjective Findings: Dr. Solano wants her to do PT on legs for numbness and weakness. Sees Xiomara for nerve damage after a bad back surgery in 2011 when she had a ruptured disc and discectomy adn nicked spinal fluid. Has had problems since. Not worse now but is getting weaker. Has a stimulator implanted for pain. Gets tramadol every 6 hours for years. Pain is in LB 4-7 constant worse with bending and twisting. Works at [employer] on feet and is tired and work and more sore after work. Sleep is up and down. Does al Basic ADLs on own but standing in one spot in shower is worse. Sitting is usually better in good chair. Been through therapy for back pain and didn't help pain much. 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 lIVES IN SECOND FLOOR APARTMENT ADN TAKES 5 MINUTES TO GET UP STEPS DUE TO R LEG WEAKNESS. - Pain LBP central and down both legs. Pain Intensity (Out of 10): 4 Pain Intensity Range: 4, 7 - Objective Walks I slowly with a R trendelenberg. Trasnfers I but obvious pain with bed transfers. LB AROM ext mod limtied adn pianful, flexion max limited and painful. SB min limited and ipsilateral pain. Pelvic tilt needs many many VC and tactile cues to get down pat. reflexes 1/3 patella sudhir chilles. Sensation is numb B LE all the time btu can feel light touch. Stregnth is 3+/5 in LE without myotomal abnormalities. LE aROM WFL, HS and gastroc very tight. Tender to touch in LB paraspinals and into upper gluts all over bilaterally. - Goals Goal 1:: Patient I in appropriate pool based ex to minimize future problems Goal Time Frame: 4-6 Weeks Goal 2:: Patient feel 50% better in strength Goal Time Frame: 4-6 Weeks Goal 3:: Trasnfer in bed without pain increase Goal Time Frame: 4-6 Weeks Goal 4:: Exit chair without needing UE. Goal Time Frame: 4-6 Weeks - Rehabilitation Potential Physical Therapy Diagnosis: LBO degeneration and weakness in LE. Rehabilitation Potential: Questionable - Anticipated Interventions Patient/Client Instruction: Educate patient on: Condition, Plan of Care For the Purpose of:: To decrease pain, To improve muscle performance and motor function, To improve ability of physical actions for home/community/work/leisure Therapeutic Exercise to Include: Strength training, Flexibilty training, In an aquatic setting, Dynamic Lumbar Stabilization For the Purpose of:: To decrease pain, To improve muscle performance and motor function, To decrease level of supervision to perform tasks Thank you for the opportunity to evaluate your patient. For Medicare and Medicare HMO plans, please review the plan of care and approve it. It will need to be FAXED BACK to us at [phone] for Medicare purposes. For Medicare only, by signing this I certify the plan of care. Please let me know if there are questions or concerns regarding this plan of care. Physician Signature: Date: <Electronically signed by Arjun Shafer DPT, OCS, CSCS> 05/26/18 0645 CC: Darline Solano MD; Margo Tatum DO EBG Signed DISCHARGE INSTRUCTION Observed: 05/13/2018 Status: F Source: [place] 8:[address] [facility] REPOSITORY [facility] Medical Records Department [address] [place] [address] Discharge Instruction 05/13/18 0850 MR#: [id number] Acct: [id number] Name: PITO HENDRIX Rep #: [id number] : 1970 47 From: John Alva MD PCP: Magro Tatum DO Status: REG ER ED Disposition - Plan for ED Patient: Disposition: Home or Assisted Living Chief Complaint: Chest Other Instructions: ED Contusion Chest Wall Referrals: Margo Tatum, [Primary Care Provider] - What to do if you have Problems For any increased pain, shortness of breath, bleeding, nausea or vomiting, chest pain, or any unexpected problems, contact your Primary Care Provider. Call [facility] ([phone]) or report to the closest Emergency Room. Call 911 if necessary. 05/13/18 0850 <Electronically signed by John Alva MD> Date John Alva MD Cosigner Signature (If Indicated): Date CC: Margo Tatum DO EMERGENCY DEPARTMENT Observed: 05/13/2018 Status: F Source: [place] SUMMARY 8:50 AM [facility] Medical Records Department [address] [place] [address] Emergency Department Summary 05/13/18 0809 MR#: [id number] Acct: [id number] Name: PITO HENDRIX Rep #: [id number] : 1970 47 From: John Alva MD PCP: Margo Tatum DO Status: REG ER - ER Visit Summary Date of Service: 05/13/18 Chief Complaint: Right upper chest pain History of Present Illness: The patient is a 47 F who has had right upper chest pain for 1 month. She noticed a lump there at that time. She has had a mammogram and ultrasound which showed it was negative. This area is painful. She takes daily tramadol and ibuprofen and it is not helping. There has been no drainage or redness to the area. No fevers. She denies trauma. It is worse when laying on the right side. Physical Examination: Vital signs reviewed. HEENT exam unremarkable. Heart is regular rate and rhythm without murmurs. Lungs are clear to auscultation. She does have right upper chest tenderness. No palpable masses. No erythema. Abdomen is soft and nontender. Extremities reveal no edema. Skin exam normal. Neurologic exam normal. Test Results: CT scan of the chest reveals stable thyroid and lung nodules. The patient is aware of these nodules. There is no chest wall masses. She received Toradol here. She will continue her home medications and use ice on her chest wall. She will follow-up with her PCP for further evaluation. Emergency Department Course and Treatment: [] Treatment Plan: [] Disposition: Discharge Impression: Right chest wall pain. This note was generated with [employer] dictation software. It may contain incorrect words, spelling, and punctuation that were not noted in review of the chart prior to signing ED Disposition - Plan for ED Patient: Chief Complaint: Chest Other Referrals: Margo Tatum DO [Primary Care Provider] - What to do if you have Problems For any increased pain, shortness of breath, bleeding, nausea or vomiting, chest pain, or any unexpected problems, contact your Primary Care Provider. Call [facility] ([phone]) or report to the closest Emergency Room. Call 911 if necessary. 05/13/18 0850 <Electronically signed by John Alva MD> Date John Alva MD Cosigner Signature (If Indicated): Date CC: Margo Tatum DO CHEST WITHOUT Observed: 05/13/2018 Status: F Source: [place] CONTRAST 8:[address] [facility] REPOSITORY [facility] Imaging Services [address] [place] [address] Chest without Contrast MR#: [id number] Acct: [id number] Name: PITO HENDRIX Rep #: [id number] : 1970 F 47 From: Victorino Neumann MD PCP: Margo Tatum DO Status: REG ER Study: Chest without Contrast Date of Exam: 05/13/18 Exam# [id number] Ordering Dr: John Alva MD STUDY: CT CHEST WITHOUT CONTRAST REASON FOR EXAM: Female, 47 years old. Right-sided chest mass for one month RADIATION DOSAGE (If Supplied By Facility): CTDIvol = ( 18.56 ) mGy, DLP = ( 635.26 ) mGycm TECHNIQUE: Transaxial imaging was performed without the administration of intravenous contrast material. Individualized dose optimization techniques were used for this CT. COMPARISON: 06/15/2016, 04/14/2016 FINDINGS: Stable low-density lesion in the left thyroid lobe measuring up to 2 cm. Consider ultrasound correlation. Stable 3 mm nodule in the right lower lobe on image 73 of series 4. This can be considered benign given stability since April 2016. There is no demonstrated pleural abnormality. Normal heart and pericardium. Normal mediastinum. Normal hilar regions. Normal unenhanced pulmonary arteries. Normal aorta arch and descending thoracic aorta. Thoracic spine stimulator. Cholecystectomy. CT/Chest without Contrast IMPRESSION: Stable benign nodule in the right lower lobe. Stable low density lesion in the left thyroid. Consider ultrasound follow-up. No masses are seen in the right lung or chest wall. Electronically Signed: Victorino Neumann MD at 8:46 EST Tel , Service support , CC: John Alva MD; Margo Tatum DO Casing Crew: Signed BREAST LIMITED Observed: 05/11/2018 Status: F Source: [place] UNILATERAL 9:[address] [facility] REPOSITORY [facility] Imaging Services [address] [place] [address] Breast Limited Unilateral MR#: [id number] Acct: [id number] Name: PITO HENDRIX Rep #: [id number] : 1970 F 47 From: Mario Alberto Joy MD PCP: Margo Tatum DO Status: REG CLI Study: Breast Limited Unilateral Date of Exam: 05/11/18 Exam# [id number] Ordering Dr: Eleni Calle MD STUDY: ULTRASOUND BREAST - RIGHT REASON FOR EXAM: Female, 47 years old. Pain in the right breast. TECHNIQUE: Axial and longitudinal images of the RIGHT breast were performed with a high resolution ultrasound transducer. COMPARISON: Comparison is made with prior mammogram done earlier in the day. FINDINGS: RIGHT Breast: The upper outer quadrant of the right breast was examined by ultrasound. There is homogeneous fibroglandular tissue. No solid or cystic mass lesion is seen. US/Breast Limited Unilateral IMPRESSION: Unremarkable sonographic examination of the upper outer quadrant of the right breast. ASSESSMENT CATEGORY: BIRADS Category 1: Negative. A letter regarding these results will be sent to the patient by the facility within 30 days. Electronically Signed: Mario Alberto Joy MD at 10:20 EST Tel [phone], Service support , CC: Eleni Calle MD; Margo Tatum DO Casing Crew: Signed DIAG MAMM W/CAD, Observed: 05/11/2018 Status: F Source: [place] BILAT 9:[address] [facility] REPOSITORY [facility] Imaging Services [address] [place] [address] DIAG MAMM W/CAD, BILAT MR#: [id number] Acct: [id number] Name: PITO HENDRIX Rep #: [id number] : 1970 F 47 From: Mario Alberto Joy MD PCP: Margo Tatum DO Status: REG CLI Study: DIAG MAMM W/CAD, BILAT Date of Exam: 05/11/18 Exam# [id number] Ordering Dr: Eleni Calle MD MAMMOGRAPHY - BILATERAL DIAGNOSTIC REASON FOR EXAM: Female, 47 years old. One-month history of the apical lump in the upper lateral aspect of the right breast. PERTINENT HISTORY: Aunt with breast cancer. TECHNIQUE: Digital bilateral breast buddy (3D mammographic acquisition) in the CC and MLO projections. 2-D mediolateral oblique (MLO) and craniocaudad (CC) views of both breasts were obtained. CAD: Full Field Digital Mammography with Computer Added Detection was performed. COMPARISON: Comparison is made with prior examination dated June 28, 2014. FINDINGS: Breast Composition: The breasts are almost entirely fatty. There are no dominant masses or suspicious calcifications. There is a stable 5.5 mm by 6.4 mm well-defined nodular density with a central fatty hilum in the upper slightly outer portion of the right breast suggests a small lymph node. No other significant abnormalities are identified. There has been no significant change since the prior study. BI/DIAG MAMM W/CAD, BILAT IMPRESSION: Stable bilateral diagnostic mammogram. With the patient's history of a palpable abnormality in the upper outer quadrant of the right breast, correlation with ultrasound is recommended. ASSESSMENT CATEGORY: BIRADS Category 0: Incomplete. Need additional imaging evaluation. A letter regarding these results will be sent to the patient by the facility within 30 days. Approximately 10% of breast cancers are not detected by mammography. A normal mammogram should not delay biopsy of a clinically suspicious abnormality. Electronically Signed: Mario Alberto Joy MD at 10:36 EST Tel [phone], Service support , CC: Eleni Calle MD; Margo Tatum DO Casing Crew: Signed DISCHARGE INSTRUCTION Observed: 03/17/2018 Status: F Source: [place] 11:[address] [facility] REPOSITORY [facility] Medical Records Department [address] [place] [address] Discharge Instruction 03/17/18 1102 MR#: [id number] Acct: [id number] Name: PITO HENDRIX Rep #: [id number] : 1970 47 From: Allen Meraz DO PCP: Margo Tatum DO Status: REG ER ED Disposition - Plan for ED Patient: Chief Complaint: Back Instructions: ED Neck Back Pain General, ED Spasm Back No Trauma Prescriptions: Hydrocodone Bitart/Apap 5-325 [Yale 5MG-325MG] 1 tab PO Q4H PRN PRN 2 Days #10 tab PRN Reason: Pain Cyclobenzaprine [Flexeril] 10 mg PO TID PRN #20 tab PRN Reason: Muscle Spasm Referrals: Margo Tatum DO [Primary Care Provider] - Darline Solano MD [STAFF PHYSICIAN] - 3-5 Days What to do if you have Problems For any increased pain, shortness of breath, bleeding, nausea or vomiting, chest pain, or any unexpected problems, contact your Primary Care Provider. Call [facility] ([phone]) or report to the closest Emergency Room. Call 911 if necessary. 03/17/18 1104 <Electronically signed by Allen Meraz DO> Date Allen Meraz DO Cosigner Signature (If Indicated): Date CC: Margo Tatum DO EMERGENCY DEPARTMENT Observed: 03/17/2018 Status: F Source: [place] SUMMARY 11:[address] [facility] REPOSITORY [facility] Medical Records Department [address] [place] [address] Emergency Department Summary 03/17/18 1059 MR#: [id number] Acct: [id number] Name: PITO HENDRIX Rep #: [id number] : 1970 47 From: Allen Meraz DO PCP: Margo Tatum DO Status: REG ER - ER Visit Summary Date of Service: 03/17/18 Chief Complaint: [Back pain] History of Present Illness: The patient is a 47 F [presents the emergency department complaint of back pain that started yesterday. Patient states that she was at work when she had sudden onset of pain in her low back and radiating down both legs. Patient states that her legs are always numb and she has a history of chronic back pain. Patient states that she has had similar pains multiple times in the past. Patient sees Dr. Solano pain management and is scheduled to have injections in her back in 5 days. Patient denies any trauma. She denies any fever. She denies urinary symptoms. Denies weakness in extremities. Patient states she lost control of her bowels one time last week but that was before all this pain started. She has not had any issue with loss of bowel or bladder function since.] Physical Examination: [HEENT-PERRLA, EOMI. Cranial nerves II through XII grossly intact. TMs clear. Mucous membranes moist. No adenopathy. Cardiovascular-regular rate and rhythm without murmur or ectopy Lungs-clear to auscultation, chest wall stable without crepitus or subcu emphysema Abdomen-normoactive bowel sounds, soft, nontender, no rebound or rigidity, no peritoneal signs. Back exam-patient has diffuse tenderness over the lumbar paraspinal musculature and into the buttocks bilaterally. Patient has negative straight leg raises. Deep tendon reflexes are plus 2 out of 4 bilaterally at the patella and Achilles. Patient does have normal sensation to light touch. Extremities-intact 4, normal range of motion, normal pulses, atraumatic] Test Results: [None indicated] Emergency Department Course and Treatment: [Patient was medicated with Dilaudid, Toradol, and Norflex in the emergency department. Patient had good pain relief with this. Patient was discussed with her pain management doctor who was comfortable with a few pain pills for home and follow-up with his office.] Treatment Plan: [Patient will be given a prescription for Flexeril and Yale.] Disposition: [Discharged home in stable condition] Impression: [Acute exacerbation of chronic back pain] This note was generated with [employer] software. It may contain incorrect words, spelling, and punctuation that were not noted in review of the chart prior to signing ED Disposition - Plan for ED Patient: Chief Complaint: Back Referrals: Margo Tatum DO [Primary Care Provider] - What to do if you have Problems For any increased pain, shortness of breath, bleeding, nausea or vomiting, chest pain, or any unexpected problems, contact your Primary Care Provider. Call [facility] ([phone]) or report to the closest Emergency Room. Call 911 if necessary. 03/17/18 1102 <Electronically signed by Allen Meraz DO> Date Allen Meraz DO Cosigner Signature (If Indicated): Date CC: Margo Tatum DO EMERGENCY DEPARTMENT Observed: 02/04/2018 Status: F Source: [place] SUMMARY 1:[address] [facility] REPOSITORY [facility] Medical Records Department [address] [place] [address] Emergency Department Summary 02/04/18 0039 MR#: [id number] Acct: [id number] Name: PITO HENDRIX Rep #: [id number] : 1970 47 From: Miguel Conroy PCP: Margo Tatum DO Status: REG ER - ER Visit Summary Date of Service: 02/04/18 Chief Complaint: Nausea and vomiting History of Present Illness: The patient is a 47 F nausea and vomiting since 1 PM today. One episode at home, 2 episodes at work, last time an hour ago. No hematemesis. No diarrhea. No fevers. No abdominal pain. No urinary symptoms. History of hysterectomy. Feeling nauseated currently. Physical Examination: General: Alert and oriented 3, no acute distress HEENT: Normocephalic, atraumatic. Moist mucosa membranes Neck: supple, nontender. Cardiovascular: Regular rate and rhythm, no murmurs Respiratory: Normal breath sounds, symmetric, no distress Abdomen: Soft, nontender, nondistended Extremities: Nontender, no edema, pulses intact 4 Neuro: no focal neurological deficits. Test Results: [] Emergency Department Course and Treatment: Patient nontoxic, nonsurgical abdomen. Vital signs stable. Treated oral Zofran, p.o. challenge no difficulties. Short prescription for nausea medicines. Continue oral hydrations. Follow-up with PCP. All questions were answered. Treatment Plan: [] Disposition: Discharge Impression: 1. Nausea and vomiting This note was generated with [employer] dictation software. It may contain incorrect words, spelling, and punctuation that were not noted in review of the chart prior to signing ED Disposition - Plan for ED Patient: Disposition: Home or Assisted Living Chief Complaint: Nausea/Vomiting Diagnosis: Nausea and vomiting Instructions: ED Nausea Vomiting Prescriptions: Ondansetron [Zofran Odt] 4 mg PO Q8H PRN PRN #10 tablet PRN Reason: Nausea Referrals: Margo Tatum DO [Primary Care Provider] - 3-5 Days What to do if you have Problems For any increased pain, shortness of breath, bleeding, nausea or vomiting, chest pain, or any unexpected problems, contact your Primary Care Provider. Call [facility] ([phone]) or report to the closest Emergency Room. Call 911 if necessary. 02/04/18 0144 <Electronically signed by Miguel Conroy> Date Miguel Solorio DO [employer] Signature (If Indicated): Date CC: Margomelida Driscolllast CAROTID DUPLEX Observed: 12/17/2017 Status: F Source: [place] ULTRASOUND 9:[address] [facility] REPOSITORY [facility] Cardiovascular Services [address] [place] [address] Carotid Duplex Ultrasound 12/14/17 1324 MR#: [id number] Acct: [id number] Name: PITO HENDRIX Rep #: [id number] : 1970 47 From: Ming Egan MD Attending Dr: Aidan Baird DO Status: REG CLI Ordering Dr: Aidan Baird DO Date: 12/14/17 Location: [facility] Sex: F C Admitted: Reason For Study: Family Hx of Carotid Disease Rt. Velocities/BP Lt. Velocities/BP Prox CCA 103/23 cm/sec. Prox CCA 121/35 cm/sec. Mid CCA 87/19 cm/sec. Mid CCA 79/25 cm/sec. Dist CCA 65/22 cm/sec. Dist CCA 70/26 cm/sec. Prox ICA 71/28 cm/sec. Prox ICA 76/26 cm/sec. Mid ICA 81/31 cm/sec. Mid ICA 100/45 cm/sec. Dist ICA 85/36 cm/sec. Dist ICA 108/45 cm/sec. Rt. ICA/CCA = 0.97. Lt. ICA/CCA = 1.36. Prox ECA 82/13 cm/sec. Prox ECA 84/18 cm/sec. Rt. Vert. 72/25 cm/sec. Lt. Vert. 42/15 cm/sec. Right Extracranial There is intimal thickening but no significant atherosclerotic plaque noted in the right common carotid artery. There is homogeneous, smooth atherosclerotic plaque noted in the right internal carotid artery. There is no significant atherosclerotic plaque noted in the right external carotid artery. Antegrade flow is noted in the right vertebral artery. Left Extracranial There is intimal thickening but no significant atherosclerotic plaque noted in the left common carotid artery. There is heterogeneous, irregular atherosclerotic plaque noted in the left internal carotid artery. There is no significant atherosclerotic plaque noted in the left external carotid artery. Antegrade flow is noted in the left vertebral artery. Procedure Carotid Duplex 30991. Exam performed in department. Interpretation Summary Mild (<50%) stenosis right extracranial internal carotid. Mild (<50%) stenosis left extracranial internal carotid. Flow within the vertebral arteries is antegrade bilaterally. Ordering Physician: Aidan Baird Referring Physician: Aidan Baird Performed By: Randa Mitchell, NEEL, RVT 12/17/17 0951 Date Ming Egan MD CC: Margo Baird DO Date Dictated: 12/14/17 1324 Date Transcribed: 12/17/17 0951 Casing Crew: Signed DOWNTIME REPORT Observed: 11/24/2017 Status: F Source: [place] 11:[address] [facility] REPOSITORY [facility] Medical Records Department [address] [place] [address] Downtime Report MR#: [id number] Acct: [id number] Name: PITO HENDRIX Rep #: [id number] : 1970 46 From: Ezra Middleton PCP: Margo Tatum DO Status: REG CLI This patient was seen during an EMR downtime November 07, 2017 - November 14, 2017. This patient may have a combination of paper and electronic documentation or all paper documentation. All documentation is viewable within the e-chart portion of [facility] for each patient visit. PELVIC (NON ) Observed: 11/14/2017 Status: F Source: [place] 9:[address] [facility] REPOSITORY [facility] Imaging Services [address] [place] [address] Pelvic (Non ) MR#: [id number] Acct: [id number] Name: PITO HENDRIX Rep #: [id number] : 1970 F 46 From: Avi Kapoor DO PCP: Margo Tatum DO Status: REG CLI Study: Pelvic (Non ) Date of Exam: 11/14/17 Exam# [id number] Ordering Dr: Eleni Calle MD STUDY: ULTRASOUND OF THE FEMALE PELVIS - COMPLETE REASON FOR EXAM: Female, 46 years old. Six-week follow- up ovarian cyst. History of hysterectomy and right oophrectomy. TECHNIQUE: Transabdominal and Transvaginal TECHNICAL QUALITY: Adequate. COMPARISON: October 03, 2017. FINDINGS: The uterus is surgically absent. The right ovary is surgically absent. There are no visualized right adnexal masses or complex lesions. The left ovary is not visualized. There is no visualized left adnexal mass or complex lesion. There is no fluid in the cul-de-sac. The urinary bladder is grossly unremarkable. US/Pelvic (Non ) IMPRESSION: 1. Status post resection of the uterus and right ovary. 2. The left ovary is not visualized. Electronically Signed: Avi Kapoor DO at 16:20 EDT Tel [phone], Service support , CC: Eleni Calle MD; Margo Tatum DO Casing Crew: Signed URINE DRUG SCREEN Collected: 10/21/2017 Status: F Source: [place] (VISTA) 12:[address] [facility] REPOSITORY Order Comment: Comments: TRAMADOL [id number] URINE List of Drugs Taken or Suspected? UNK TYPE CODE TESTS RESULT OUT OF RANGE REFERENCE UNITS LAB L505.0075 TO BE Normal CONFIRMED Result Comment: CONFIRMATORY TESTING FOR ALL POSITIVE URINE DRUG SCREEN RESULTS WILL ONLY BE SENT OUT UPON PHYSICIAN ORDER. VISTA Urine Drug Screen methods provide only preliminary analytical test results. A more specific alternate chemical method must be used in order to obtain a confirmed analytical result. Gas chromatography/mass spectrometery (GC/MS) is the preferred confirmatory method. Clinical consideration and professional judgement should be applied to any drug of abuse test result, particularly when preliminary positive results are used. URINE TCA TESTING MUST BE ORDERED SEPARATELY. USE TEST MNEMONIC: [facility]CA LAB L505.5005 VISTA UDS PH 8 Normal LAB L505.5015 <1000 ng/mL AMPHETAMINES Normal NEGATIVE LAB L505.5025 < 200 ng/mL BARBITIURATES Normal NEGATIVE LAB L505.5035 < 200 ng/mL BENZODIAZIPINE Normal NEGATIVE LAB L505.5045 < 300 ng/mL COCAINE Normal NEGATIVE LAB L505.5055 < 500 ng/mL ECSTACY Normal NEGATIVE LAB L505.5065 < 300 ng/mL METHADONE Normal NEGATIVE LAB L505.5075 < 300 ng/mL OPIATES Normal NEGATIVE LAB L505.5085 < 25 ng/mL PCP Normal NEGATIVE LAB L505.5095 < 50 ng/mL THC Normal NEGATIVE Performed By: #### L505.5000 #### [facility] [address] [place], [address] MISCELLANEOUS LAB Collected: 10/21/2017 Status: F Source: [place] PROCEDURE 2 12:[address] [facility] REPOSITORY Order Comment: Comments: TRAMADOL [id number] URINE List Test(s) Ordered by Physician: URINE TOXICOLOGY [id number] RUN LOWEST TEST TYPE CODE TESTS RESULT OUT OF RANGE REFERENCE UNITS LAB L801.1543 Normal [facility] LAB TEST 2 Result Comment: TEST RESULT UNITS REF INTERVAL [id number] 6+Oxycodone-Bund Amphetamines, Urine Negative ng/mL Rlgsal=0962 Amphetamine test includes Amphetamine and Methamphetamine. Barbiturate Negative ng/mL Xznxrn=896 Benzodiazepines Negative ng/mL Qpndmu=439 Cannabinoids Negative ng/mL Cutoff=20 Cocaine (Metabolite) Negative ng/mL Cosioz=372 Opiates Negative ng/mL Wqiwbt=266 Opiate test includes Codeine, Morphine, Hydromorphone, Hydrocodone. Oxycodone/Oxymorphone, Urine Negative ng/mL Uejphu=655 Test includes Oxycodone and Oxymorphone [facility] AT [facility]. ORIGINAL REPORT ON FILE IN LAB CONTAINS ADDITIONAL TEST SITE INFORMATION. Performed By: #### L801.1543 #### [place] [address] [place], [address] MISCELLANEOUS LAB Collected: 10/21/2017 Status: F Source: [place] PROCEDURE 12:[address] [facility] REPOSITORY Order Comment: Comments: TRAMADOL [id number] URINE Test(s) Ordered: URINE TOXICOLOGY [id number] RUN LOWEST TEST TYPE CODE TESTS RESULT OUT OF RANGE REFERENCE UNITS LAB L801.1541 Normal [facility] LAB TEST Result Comment: TEST RESULT UNITS REFERENCE INTERVAL Tramadol Tramadol Positive Gtylam=049 Tramadol GC/MS Conf 6350 ng/mL Ihxshv=596 TESTING PERFORMED AT [facility]. ORIGINAL REPORT ON FILE IN LAB CONTAINS ADDITIONAL TEST SITE INFORMATION. Performed By: #### L801.1541 #### [place] [facility] [address] [place], [address] PELVIC (NON ) Observed: 10/03/2017 Status: F Source: [place] 12:22 PM [facility]OSPITAL REPOSITORY [facility] Imaging Services [address] [place] [address] Pelvic (Non ) MR#: [id number] Acct: [id number] Name: PITO HENDRIX Rep #: [id number] : 1970 F 46 From: Eduar Diamond MD PCP: Margo Tatum DO Status: REG CLI Study: Pelvic (Non ) Date of Exam: 10/03/17 Exam# [id number] Ordering Dr: Eleni Calle MD STUDY: ULTRASOUND OF THE FEMALE PELVIS - COMPLETE REASON FOR EXAM: Female, 46 years old. Ovarian cyst follow- up LMP: Unknown. TECHNIQUE: Transabdominal, patient refused transvaginal probe TECHNICAL QUALITY: Adequate. COMPARISON: CT scan from 08/25/2017 FINDINGS: The uterus has been previously removed The right ovary was previously removed The left ovary is visualized. The left ovary measures 3.7 x 3.4 x 2.7 cm. There is a complex 1.4 x 1.9 x 3.1 cm cyst. There is normal arterial and normal venous vascularity. There is no fluid in the cul-de-sac. The bladder is sonographically normal US/Pelvic (Non ) IMPRESSION: Complex left ovarian cyst measuring 3.1 cm. Its size is unchanged from the previous CT. Previous removal of the uterus and right ovary No demonstrated free fluid Electronically Signed: Ramu Diamond MD at 13:24 EDT , Service support , CC: Eleni Calle MD; Margo Tatum DO Casing Crew: Signed EMERGENCY DEPARTMENT Observed: 08/25/2017 Status: F Source: [place] SUMMARY 4:33 AM [facility] HOSPITAL REPOSITORY [facility] Medical Records Department [address] [place] [address] Emergency Department Summary 08/25/17 0321 MR#: [id number] Acct: [id number] Name: PITO HENDRIX Rep #: [id number] : 1970 46 From: Miguel Conroy PCP: Margo Tatum DO Status: REG ER - ER Visit Summary Date of Service: 08/25/17 Chief Complaint: Abdominal pain History of Present Illness: The patient is a 46 F intermittent mid abdominal pain since Tuesday. Pain worse this evening, more severe. 3 days ago symptoms seem to improve with vomiting. Has not vomited since. Tolerating oral fluids. Normal bowel movement prior to arrival. History of cholecystectomy, appendectomy, partial hysterectomy with right oophorectomy. No history of pancreatitis. No alcohol history. Last meal was supper. Chills without sweats. No urinary symptoms. No previous similar symptoms in the past. Patient on tramadol for history of multiple back surgeries. Does not follow general surgeon. No history of bowel obstructions. Physical Examination: General: Alert and oriented 3, uncomfortable HEENT: Normocephalic, atraumatic. Moist mucosa membranes Neck: supple, nontender. Cardiovascular: Regular rate and rhythm, no murmurs Respiratory: Normal breath sounds, symmetric, no distress Abdomen: Soft, mild mid abdominal tenderness without guarding or rebound. Hypoactive bowel sounds. Extremities: Nontender, no edema, pulses intact 4 Neuro: no focal neurological deficits. Test Results: WBC 7.9, Hemoccult 14.2. Lipase 197. Liver enzymes normal. CT abdomen pelvis: No acute disease. Left 2.9 cm left ovarian cyst. Emergency Department Course and Treatment: Patient uncomfortable on examination. History of multiple bowel surgeries. Abdominal labs were negative. Initially treated with morphine and Zofran and fluids. Addition Dilaudid was given. CT abdomen pelvis notes no intra-abdominal process. No signs of obstruction. Incidental finding 2.9 cm left ovarian cyst. Reevaluation symptoms much more improved. Abdomen remains soft. Patient had normal bowel movement prior to arrival. Discussed with patient monitoring symptoms. She will be placed on Bentyl. She develops nausea and vomiting, decreased flatus or worsening symptoms to return for reevaluation. She will follow-up with [facility] for her ovarian cysts. All questions were answered. Treatment Plan: [] Disposition: Discharge Impression: 1. Nonspecific abdominal pain 2. Left ovarian cysts This note was generated with [employer] dictation software. It may contain incorrect words, spelling, and punctuation that were not noted in review of the chart prior to signing ED Disposition - Plan for ED Patient: Disposition: Home or Assisted Living Chief Complaint: Abd Pain Diagnosis: Nonspecific abdominal pain, Left ovarian cyst Instructions: ED Abdominal Pain Unkn Cause, What Are Ovarian Cysts? Prescriptions: Dicyclomine HCl [Bentyl] 10 mg PO Q6H PRN PRN #12 capsule PRN Reason: abdominal pain Referrals: Margo Tatum DO [Primary Care Provider] - 3-5 Days if not improving Lyudmila Garrido MD [STAFF PHYSICIAN] - 5-7 Days Additional Instructions: 2.9cm left ovarian cyst. What to do if you have Problems For any increased pain, shortness of breath, bleeding, nausea or vomiting, chest pain, or any unexpected problems, contact your Primary Care Provider. Call [facility] ([phone]) or report to the closest Emergency Room. Call 911 if necessary. 08/25/17 0433 <Electronically signed by Miguel Conroy> Date Miguel Conroy Cosigner Signature (If Indicated): Date CC: Margo Tatum DO ABDOMEN/PELVIS WITHOUT Observed: 08/25/2017 Status: F Source: [place] CONT 3:[address] [facility] REPOSITORY [facility] Imaging Services [address] [place] [address] Abdomen/Pelvis without Cont MR#: [id number] Acct: [id number] Name: PITO HENDRIX Rep #: [id number] : 1970 F 46 From: Victorino Neumann MD PCP: Margo Tatum DO Status: REG ER Study: Abdomen/Pelvis without Cont Date of Exam: 08/25/17 Exam# [id number] Ordering Dr: Miguel Solorio DO STUDY: CT ABDOMEN AND PELVIS WITHOUT CONTRAST REASON FOR EXAM: Female, 46 years old. Abdominal pain RADIATION DOSAGE (If Supplied By Facility): CTDIvol = ( 18.04 ) mGy, DLP = ( 906.14 ) mGycm TECHNIQUE: Transaxial images were obtained from the dome of the diaphragm to the symphysis pubis without oral contrast, and without intravenous contrast. Sagittal and coronal images were reconstructed. Individualized dose optimization techniques were used for this CT. COMPARISON: 06/26/2014 FINDINGS: The visualized lung bases are unremarkable. The visualized portions of the heart are within normal limits. Normal liver. There are surgical clips in the gallbladder fossa consistent with a prior cholecystectomy. Normal spleen. Normal pancreas. Normal bilateral adrenal glands. Nonobstructing right renal calculi. Normal left kidney. Normal visualized stomach. A small duodenal diverticulum is noted. There are multiple colonic diverticula consistent with diverticulosis. There is non-visualization of the appendix. Normal abdominal aorta. Normal inferior vena cava. Normal retroperitoneum. Normal urinary bladder. Probable 2.9 cm left ovary cyst. Normal abdominal wall. Thoracic spine stimulator. L5 laminectomies. CT/Abdomen/Pelvis without Cont IMPRESSION: No evidence of acute intestinal pathology or acute obstructive uropathy. Duodenal diverticulum. Probable 2.9 cm left ovary cyst. Electronically Signed: Victorino Neumann MD at 4:12 EDT Tel , Service support , CC: Margo Tatum DO; Miguel Solorio Casing Crew: Signed CBC W/DIFF, AUTOMATED Collected: 08/25/2017 Status: F Source: [place] 2:[address] [facility] REPOSITORY TYPE CODE TESTS RESULT OUT OF RANGE REFERENCE UNITS LAB L100.1000 4.4-11.0 K/mm3 Normal WBC 7.9 LAB L100.1200 4.2-5.4 M/mm3 Normal RBC 4.55 LAB L100.1300 12.0-15.0 g/dl Normal HGB 14.2 LAB L100.1400 37-47 % Normal HCT 42.8 LAB L100.1500 81-99 fL Normal MCV 94.1 LAB L100.1600 27.0-32.0 pg Normal MCH 31.2 LAB L100.1700 32-36 g/gl Normal MCHC 33.2 LAB L100.1810 11.6-14.6 % High RDW CV 15.2 LAB L100.1820 35.1-43.9 fl High RDW SD 52.0 LAB L100.1900 150-450 K/mm3 Normal PLT 264 LAB L100.2000 6.2-12.0 fl Normal MPV 10.0 LAB L100.2100 47-70 % High NEUT% 72.8 LAB L100.2200 19-41 % Normal LY% 19.5 LAB L100.2300 0-10 % Normal MONO% 6.7 LAB L100.2400 0-5 % Normal EO% 0.8 LAB L100.2500 0-1 % Normal BASO% 0.1 LAB L100.2550 0.0-0.9 % Normal IM GRAN % 0.100 Result Comment: IG% - Immature Granulocytes (promyelocytes, myelocytes and metamyelocytes) > 1% indicates that a LEFT SHIFT is Present. LAB L100.2620 2.0-7.7 X10 3/uL Normal Absolute Neut 5.8 LAB L100.2720 0.83-4.51 X10 3/ul Normal Absolute Lymph 1.55 Performed By: #### L100.0100 #### [facility] [address] [facility] [place], [address] COMPREHENSIVE METABOLIC Collected: 08/25/2017 Status: F Source: [facility] 2:[address] [facility] REPOSITORY TYPE CODE TESTS RESULT OUT OF RANGE REFERENCE UNITS LAB L501.0100 74-106 mg/dL High GLU 112 Result Comment: Fasting Glucose result from 100 to 125 mg/dL suggests IMPAIRED HOMEOSTASIS per A.D.A. criteria. Please note revised GLUCOSE reference range effective 2017. LAB L501.1000 7-18 mg/dL Normal BUN 13 LAB L501.1100 0.55-1.02 mg/dL Normal CREAT,SERUM 0.72 Result Comment: The validity of the calculated GFR AND GFRAA in patients over 70 years has not been determined. Clinical correlation is essential. LAB L501.1110 >60 mL/min Normal EST GFR 92 Result Comment: Non- GFR Calc LAB L501.1115 >60 mL/min Normal EST GFR - AA 112 Result Comment: GFR Calc LAB L501.1255 ml/min Normal Estimated CRCL 83.41 LAB L501.1300 10-20 RATIO Normal BUN/CRE 18.1 LAB L501.1500 6.4-8. g/dL High 2 T PROT 8.3 LAB L501.1800 3.2-5. g/dL Normal 0 ALB 3.6 LAB L501.1950 2.2-4. g/dL High 2 GLOB 4.7 LAB L501.2000 0.9-2. RATIO Low 4 A/G 0.8 LAB L501.2200 8.5-10 mg/dL Normal .1 CA 8.8 LAB L501.4100 15-37 U/L Normal AST 21 LAB L501.4305 45-117 U/L Normal ALK P 57 LAB L501.4405 13-56 U/L Normal ALT 22 Result Comment: Please note revised ALT reference range effective 2017. LAB L501.4600 0.20-1.00 mg/dL Normal T BILI 0.40 LAB L501.5300 136-145 mmol/L Normal NA 140 LAB L501.5600 3.5-5.1 mmol/L Normal K 3.8 LAB L501.5900 98-107 mmol/L Normal CL 105 LAB L501.6100 21.0-32.0 mmol/L Normal CO2 28.0 LAB L501.6200 5-15 Normal GAP 7 Performed By: #### L500.4050, L501.2450 #### [facility] [address] [place], [address] LIPASE Collected: 08/25/2017 Status: F Source: [place] 2:[address] [facility] REPOSITORY TYPE CODE TESTS RESULT OUT OF RANGE REFERENCE UNITS LAB L501.2450 73-393 U/L Normal LIPASE 197 Performed By: #### L500.4050, L501.2450 #### [facility] [address] [place], [address] PROGRESS Observed: 07/17/2017 Status: COMPLETED Source: [place] 3:32 PM [facility] REPOSITORY HNO ID: [id number] Author: Gary Kent Service: (none) Author Type: Nurse Practitioner Type: Progress Notes Filed: 07/17/2017 3:50 PM Note Text: HPI HPI Pito Hendrix is a 46 year old female who presents today for CC of cough, nasal congestion. This started 2 days. Has tried otc medication with relief. Symptoms are worsened by nothing specific. Risk factors sick exposures at work. Has body aches 102.3 highest fever this morning, took ibuprofen Denies hx of renal disease Review of Systems Constitutional: Positive for fever and malaise/fatigue. Negative for chills and weight loss. HENT: Positive for congestion, ear pain and sore throat. Negative for ear discharge and nosebleeds. Respiratory: Positive for cough. Negative for shortness of breath and wheezing. Cardiovascular: Negative for chest pain. Musculoskeletal: Negative for neck pain. Skin: Negative for itching and rash. No past medical history on file. No past surgical history on file. ALLERGIES Augmentin [Amoxicillin-Pot Clavulanate] MEDICATIONS TRAMADOL HCL (TRAMADOL ORAL) Take by mouth. No family history on file. Social History Substance Use Topics - Smoking status: Never Smoker - Smokeless tobacco: Never Used - Alcohol use Not on file Blood pressure 130/76, pulse 101, temperature 37.7 ?C (99.8 ?F), temperature source Tympanic, resp. rate 24, weight 97.5 kg (215 lb), SpO2 97 %. Physical Exam Constitutional: She is oriented to person, place, and time and well-developed, well-nourished, and in no distress. Non-toxic appearance. She has a sickly appearance. No distress. HENT: Head: Normocephalic and atraumatic. Right Ear: Hearing, tympanic membrane, external ear and ear canal normal. Left Ear: Hearing, tympanic membrane, external ear and ear canal normal. Nose: Nose normal. Mouth/Throat: Uvula is midline, oropharynx is clear and moist and mucous membranes are normal. Eyes: Conjunctivae and lids are normal. Pupils are equal, round, and reactive to light. Right eye exhibits no discharge. Left eye exhibits no discharge. No scleral icterus. Neck: Trachea normal and normal range of motion. Neck supple. Cardiovascular: Normal rate, regular rhythm and normal heart sounds. Pulmonary/Chest: Effort normal and breath sounds normal. Lymphadenopathy: She has no cervical adenopathy. Neurological: She is alert and oriented to person, place, and time. Skin: No rash noted. She is not diaphoretic. ASSESSMENT/PLAN: 1. Influenza-like illness - ICD9: 799.89, ICD10: R69 -duration 2 days, risk factors are obesity, heart disease - will treat -discussed risk/benefit of tamiflu, patient wants medication -given educational handout -push fluids/rest -discussed likely course/contagiousness -discussed conservative measures -f/u in 3-5 days if symptoms persist/worsen - OSELTAMIVIR 75 MG CAPSULE Prescription instructions reviewed with patient as applicable. Patient advised if symptoms do not improve or if symptoms worsen sooner, to contact the office for further evaluation by their primary care physician. Potential red flag symptoms discussed with the patient. Reviewed appropriate action plan to take if red flag symptoms occur. Patient agreeable to treatment plan. Gary Kent CNP SPINE CERVICAL Observed: 07/01/2017 Status: F Source: [place] WITHOUT CONTRAS 4:[address] [facility] REPOSITORY [facility] Imaging Services [address] [place] [address] Spine Cervical without Contras MR#: [id number] Acct: [id number] Name: PITO HENDRIX Rep #: [id number] : 1970 F 46 From: Rebekah Hatch MD PCP: Margo Tatum DO Status: REG CLI Study: Spine Cervical without Contras Date of Exam: 07/01/17 Exam# [id number] Ordering Dr: Aidan Baird DO CT Spine Cervical W/O Contrast INDICATION: Cervical radiculopathy-right. Prior lumbar surgery, diabetes. COMPARISON: None TECHNIQUE: High-resolution axial CT imaging of the cervical spine. Radiation dose optimization technique applied. FINDINGS: There is mild cervical kyphosis, which may be positional. Height of the vertebral bodies is preserved. Anterior osteophytes are noted and C3-4 and C5-6. Uncovertebral joint arthritic changes are noted at C3- 4. There is no evidence of osseous spinal canal or neuroforaminal narrowing at any level. There is no evidence of acute fracture. Prevertebral soft tissue stripe is within normal limits. Mild vascular calcifications are noted at the left carotid bifurcation. Thyroid gland is diffusely heterogenous and the left lobe of the thyroid is enlarged with a dominant 1 cm nodule, consider further evaluation with ultrasound if clinically warranted. CT/Spine Cervical without Contras IMPRESSION: Mild degenerative changes at the cervical spine. No evidence of acute fracture. Heterogenous enlargement of the thyroid gland with a 1 cm left thyroid nodule, follow-up with ultrasound as clinically warranted. at 2300 Reported and signed by: Rebekah Hatch MD Electronically Signed: Rebekah Hatch MD at 21:59 EST Tel , Service support , CC: Margo Tatum DO; Aidan Baird DO Casing Crew: Signed ALLERGIES ALLERGIES DATE TYPE / CODE NAME / CODE REACTION SEVERITY SOURCE 05/13/2018 Drug amoxicillin Vomiting Unknown [place] Allergy/416 trihydrate/[id number] [facility] 525555([facility] 707([facility] ED CT) Repository 05/13/2018 Drug potassium Vomiting Unknown [place] Allergy/416 clavulanate/Q11644 [facility] 169489([facility] [address] ED [facility]) Repository ENCOUNTERS ENCOUNTERS ADMIT/DISCHARGE ACCOUNT ADMITTING ENCOUNTER LOCATION SOURCE NUMBER CLASS 06/07/2018 [id number] Ambulatory [facility] ing:PT Repository 05/13/2018/05/13/20 [id number] Emergency [address] ing:ED Repository 05/11/2018 [id number] Ambulatory [facility] ing:OPBI Repository 03/17/2018/03/17/20 [id number] Emergency [address] ing:ED Repository 02/03/2018/02/05/20 [id number] Emergency [address] ing:ED Repository 12/14/2017 [id number] Ambulatory [facility] ing:CVS Repository 11/14/2017 [id number] Ambulatory [facility] ing:OPUS Repository 10/21/2017 [id number] Ambulatory [facility] ing:LAB Repository 10/03/2017 [id number] Ambulatory [facility] ing:OPUS Repository 08/25/2017/08/26/19 [id number] Emergency [address] ing:ED Repository 07/17/2017/07/17/19 [id number] Ambulatory [address] Repository 07/01/2017 [id number] [facility] ing:CT Repository PAYERS PAYERS ENCOUNTER GUARANTOR PAYER SUBSCRIBER SOURCE 06/07/2018 PITO A Primary PITO A [place] [id number] GASCHE [facility]: Community [address], *[place] [id number] [address]: Number: Repository [id number] () Date:[id number] [address]FM: 06/07/2018 Secondary NOT GIVENUNK [place] Insurance:SELF PAY [facility] Number: Effective Repository Date:2018-05-17 05/13/2018 PITO A Primary PITO A Alexandra [id number] [place] Insurance:[facility] [place]: Community [address], *IN [id number] [address]Jux: Number: Repository [id number] (HP) Date:[id number] [address]QR: 05/13/2018 Secondary NOT GIVENUNK [place] Insurance:SELF PAY [facility] Number: Effective Repository Date:2018-05-13 05/11/2018 PITO A Primary PITO A Alexandra [id number] [place] Insurance:[facility] [place]: Community [address], *[place] [facility] [id number] [place] [address]Hds: Number: Repository [id number] (HP) Date:[id number] [address] [address]UN: 05/11/2018 Secondary NOT GIVENUNK [place] Insurance:SELF PAY [facility] Number: Effective Repository Date:2018-05-04 03/17/2018 PITO A Primary PITO A [place] [id number] [place] Insurance:[facility] [place]: Community [address], *IN [facility] [id number] [place] [address]Nqh: Number: Repository [id number] (HP) Date:[id number] [address] [address]RC: 03/17/2018 Secondary NOT GIVENUNK [place] Insurance:SELF PAY [facility] Number: Effective Repository Date:2018-03-17 02/03/2018 PITO A Primary PITO A [place] [id number] [place] Insurance:MEDICARE [place]: Community [address], PART A [facility] [id number] [place] [address]Hhe: Number: Repository [id number] (HP) Date:2018-02-03 02/03/2018 Secondary PITO A [place] Insurance:[place]: Community y Number: [id number] Hospital [id number] Repository Date:2018-02-03 02/03/2018 Tertiary NOT GIVENUNK [place] Insurance:SELF PAY [facility] Number: Effective Repository Date:2018-02-03 12/14/2017 PITO A Primary PITO A [place] [id number] [place] Insurance:MEDICARE [place]: Community [address], PART A [facility] [id number] [address]Lwt: Number: Repository [id number] (HP) Date:2017-12-09 12/14/2017 Secondary PITO A [place] Insurance:[place]: Community icy Number: [id number] Hospital [id number] Repository Date:2017-12-09 12/14/2017 Tertiary NOT GIVENUNK [place] Insurance:SELF PAY [facility] Number: Effective Repository Date:2017-12-09 11/14/2017 PITO A Primary PITO A [place] [id number] [place] Insurance:MEDICARE [place]: Community [address], PART A [facility] [id number] [address]Aba: Number: Repository [id number] (HP) Date:2017-10-05 11/14/2017 Secondary PITO A [place] Insurance:[place]: Community icy Number: [id number] Hospital [id number] Repository Date:2017-10-05 11/14/2017 Tertiary NOT GIVENUNK [place] Insurance:SELF PAY [facility] Number: Effective Repository Date:2017-10-05 10/21/2017 PITO A Primary PITO A [place] [id number] [place] Insurance:MEDICARE [place]: Community [address], PART A [facility] [id number] [address]Pqz: Number: Repository [id number] (HP) Date:2017-10-21 10/21/2017 Secondary PITO A [place] Insurance:[place]: Community icy Number: [id number] Hospital [id number] Repository Date:2017-10-21 10/21/2017 Tertiary NOT GIVENUNK [place] Insurance:SELF PAY [facility] Number: Effective Repository Date:2017-10-21 10/03/2017 PITO A Primary PITO A [place] [id number] [place] Insurance:MEDICARE [place]: Community [address], PART A [facility] [id number] [facility] Hospital [address]Fpb: Number: Repository [id number] (HP) Date:2017-09-26 10/03/2017 Secondary PITO A [place] Insurance[place]: Community icy Number: [id number] Hospital [id number] Repository Date:2017-09-26 10/03/2017 Tertiary NOT GIVENUNK [place] Insurance:SELF [facility]: Effective Repository Date:2017-09-26 08/25/2017 PITO A Primary PITO A [place] [id number] [place] Insurance:[place]ICARE [place]: Community [address], PART A [facility] [id number] [facility] Hospital [address]Gzu: Number: Repository [id number] (HP) Date:2017-02-27 08/25/2017 Secondary PITO A [place] Insurance[place] icy Number: Effective [id number] Hospital Date:2017-08-25 Repository 08/25/2017 Tertiary NOT GIVENUNK [place] Insurance:SELF PAY [facility] Number: Effective Repository Date:2017-08-25 07/01/2017 PITO A Primary PITO A [place] [id number] [place] Insurance:[place]ICARE [place]: Community [address], PART A [facility] [id number] [facility] Hospital [address]Txh: Number: Repository [id number] (HP) Date:2017-02-27 07/01/2017 Secondary PITO A [place] Insurance[place]: Community icy Number: Effective [id number] Hospital Date:2017-06-27 Repository 07/01/2017 Tertiary NOT GIVENUNK [place] Insurance:SELF PAY [facility] Number: Effective Repository Date:2017-06-27
== END 2018-06-07 19:00 | disposition home or self-care (01) ==
LOC: PT 11:00
PROVIDERS: Family Provider Family Medicine; PCP Family Medicine; Referring Provider Anesthesiology Pain Medicine; Visit Provider Anesthesiology Pain Medicine
DX: M54.9 Dorsalgia, unspecified (principal); M79.606 Pain in leg, unspecified
CPT/HCPCS: 97110; 97113; 97162

== ENCOUNTER → 2018-07-24 07:07 | Outpatient (CLI) | payer MEDICARE, SELFPAY ==
--- NOTE | 2018-07-24 07:09 | CT_ITS ---
STUDY: CT ABDOMEN AND PELVIS WITHOUT CONTRAST REASON FOR EXAM: Female, 47 years old. One-month history of left flank pain. RADIATION DOSAGE (If Supplied By Facility): CTDIvol = ( 16.72 ) mGy, DLP = ( 889.51 ) mGycm TECHNIQUE: Transaxial images were obtained from the dome of the diaphragm to the symphysis pubis without oral contrast, and without intravenous contrast. Sagittal and coronal images were reconstructed. Individualized dose optimization techniques were used for this CT. COMPARISON: Comparison is made with prior study dated August 25, 2017. FINDINGS: The visualized lung bases are unremarkable. The visualized portions of the heart are within normal limits. Normal liver. There are surgical clips in the gallbladder fossa consistent with a prior cholecystectomy. Normal spleen. Normal pancreas. Normal bilateral adrenal glands. Nonobstructive intrarenal calculi in the mid and lower poles of the left kidney. The largest measures 7.9 mm. Normal left kidney. A punctate calcification is seen in the midportion of the left gonadal vein suggestive of a small phlebolith. This is unchanged as compared to prior study. Normal visualized stomach. Normal small intestine. There are multiple colonic diverticula consistent with diverticulosis. The appendix is visualized and appears normal. There is diffuse atherosclerotic calcification of the abdominal aorta and its major visceral branches, without a demonstrated aneurysm. Normal inferior vena cava. There is borderline retroperitoneal lymphadenopathy with enlarged nodes no greater than 10mm in the short axis diameter. Normal urinary bladder. There is absence of the uterus consistent with a prior hysterectomy. Normal abdominal wall. There are degenerative changes of the visualized lumbar spine. Straightening of the normal lumbar lordosis. Thoracic spine stimulator. Prior laminectomy at the L5 level. CT/Abdomen/Pelvis without Cont IMPRESSION: Nonobstructive calculi in the right kidney. Electronically Signed: Mario Alberto Joy MD at 14:39 EST , Service support ,
== END ==
PROVIDERS: Family Provider Family Medicine; PCP Family Medicine; Referring Provider Family Medicine; Visit Provider Family Medicine
DX: R10.9 Unspecified abdominal pain (principal)
CPT/HCPCS: 74176

== ENCOUNTER → 2018-09-13 11:27 | Outpatient (CLI) | payer MEDICARE, SELFPAY ==
[2018-09-13 12:39] LABS: Amphetamine Urine VISTA NEGATIVE (<1000 ng/mL); Barbiturate Urine VISTA NEGATIVE (< 200 ng/mL); Benzodiazepine Urine VISTA NEGATIVE (< 200 ng/mL); Cocaine Urine VISTA NEGATIVE (< 300 ng/mL); Ecstacy Urine VISTA NEGATIVE (< 500 ng/mL); Methadone Urine VISTA NEGATIVE (< 300 ng/mL); PCP Urine VISTA NEGATIVE (< 25 ng/mL); THC Urine VISTA NEGATIVE (< 50 ng/mL); Vista UDS pH Range 5
== END ==
PROVIDERS: Family Provider Family Medicine; PCP Family Medicine; Referring Provider Anesthesiology Pain Medicine; Visit Provider Anesthesiology Pain Medicine
DX: F11.20 Opioid dependence, uncomplicated (principal)
CPT/HCPCS: 80307

== ENCOUNTER 2018-09-30 08:41 | Emergency (ER) | payer MEDICARE, SELFPAY ==
[2018-09-30 08:42] VITALS: BP 138/82; PULSE 86; RESP 19; TEMP 36.6; O2SAT 99; BMI 38.7
[2018-09-30 09:07] VITALS: BP 154/84; BP 165/80; PULSE 80
[2018-09-30] MEDS: Ondansetron 4 MG/2 ML Vial IV (09:24)
[2018-09-30] MEDS: 0.9% Normal Saline 1,000 ML 1000 ML IV (09:25)
[2018-09-30] MEDS: Morphine 4 MG/ML Syringe IV (09:25)
[2018-09-30 09:45] LABS: Absolute Lymphocyte Count 2.31 X10^3/ul (0.83-4.51); Basophil# 0.01 X10^3/uL; Basophil% 0.1 % (0-1); Eosinophil# 0.07 X10^3/uL; Hemoglobin 14.4 g/dl (12.0-15.0); Lymphocyte # 2.31 X10^3/ul (4.0); Lymphocyte % 33.9 % (19-41); Mean Corp Hgb Conc 33.5 g/gl (32-36); Mean Corpuscular Hgb 30.6 pg (27.0-32.0); Mean Corpuscular Volume 91.5 fL (81-99); Mean Platelet Vol. 10.3 fl (6.2-12.0); Monocyte# 0.41 X10^3/uL; Neutrophil # 4.01 X10^3/uL (2.7-7.7); Platelet Count 230 K/mm3 (150-450); RBC Distribution Width SD 46.1 fl (35.1-43.9); White Blood Count 6.8 K/mm3 (4.4-11.0)
[2018-09-30 09:46] LABS: POSITIVE COUNT NO; POSITIVE DIFFERENTIAL NO; POSITIVE MORPHOLOGY NO
[2018-09-30 09:58] LABS: AST(SGOT) 13 U/L (15-37); Alanine Aminotransfer ALT/SGPT 21 U/L (13-56); Albumin, Serum 3.8 g/dL (3.2-5.0); Alkaline Phosphatase 73 U/L (45-117); Anion Gap 6 (5-15); BUN 29 mg/dL (7-18); BUN/Creat Ratio 25.4 RATIO (10-20); Bilirubin, Direct 0.13 mg/dL (0.00-0.30); Calcium,Total 8.5 mg/dL (8.5-10.1); Chloride 107 mmol/L (98-107); Creatinine, Serum 1.14 mg/dL (0.55-1.02); EST Glomerular Filtration Rate 54 mL/min (>60); Est Glom Filt Rate - Afr Amer 65 mL/min (>60); Estimated Creatinine Clearance 52.11 ml/min; Globulin 4.2 g/dL (2.2-4.2); Glucose 165 mg/dL (74-106); Lipase 255 U/L (73-393); Potassium 3.5 mmol/L (3.5-5.1); Sodium Level 139 mmol/L (136-145)
[2018-09-30] MEDS: 0.9% Normal Saline 1,000 ML 150 ML IV (10:23)
[2018-09-30 10:33] LABS: Bacteria 0 SEEN /hpf (None Seen); Mucous, Urine 0 SEEN /hpf (<or=2+); Red Blood Cells-Urine 0 SEEN /hpf (0-5)
[2018-09-30 10:37] LABS: Color, Urine Yellow (Yellow); Glucose, Dipstick Normal (Normal); Ketone-Dipstick Negative (Negative); Leukocyte Esterase-Dipstick Negative /ul (Negative); Nitrite-Dipstick Negative (Negative); Occult Blood-Urine Negative /ul (Negative); Protein-Dipstick Negative (Negative); Specific Gravity, Urine 1.015 (1.002-1.030); Urine Bilirubin Dipstick Negative (Negative); Urine Clarity Clear (Clear); Urine Urobilinogen 1 mg/dl (Normal)
[2018-09-30 10:44] LABS: Squamous Epithelial Cells - UA 0-5 SEEN /hpf (5-10); White Blood Cells 0-5 SEEN /hpf (0-5)
[2018-09-30 10:55] VITALS: BP 148/87; PULSE 85; RESP 16; O2SAT 98
--- NOTE | 2018-09-30 11:15 | ED.VISSUMM ---
- ER Visit Summary Date of Service: 09/30/18 Chief Complaint: Nausea, vomiting, diarrhea History of Present Illness: The patient is a 47 F reports nausea, vomiting, and diarrhea for the past 2 days. She has some diffuse abdominal cramping. She reports chills but no fever. She has had prior appendectomy and cholecystectomy. Physical Examination: Vital signs unremarkable. She is afebrile. Head and neck examination unremarkable. Heart is regular rate and rhythm. Lung sounds are clear. Abdomen soft with mild diffuse tenderness. No guarding or rebound. Hypoactive but present bowel sounds are noted. Test Results: CBC and chemistry studies significant for glucose of 165. BUN is 29 creatinine is 1.14. LFTs and lipase normal. Urinalysis normal. Emergency Department Course and Treatment: Patient was given morphine, Zofran, and IV fluids. At this time she is tolerating p.o. and feels improved. She will be given a work note for today and tomorrow. Treatment Plan: [] Disposition: Discharge Impression: Gastroenteritis This note was generated with [employer] dictation software. It may contain incorrect words, spelling, and punctuation that were not noted in review of the chart prior to signing ED Disposition - Plan for ED Patient: Disposition: Home or Assisted Living Instructions: ED Gastroenteritis Viral Prescriptions: Ondansetron [Zofran Odt] 4 mg PO Q8H PRN PRN #10 tablet PRN Reason: Nausea Dicyclomine HCl [Bentyl] 20 mg PO TIDAC #20 capsule Referrals: Margo Tatum DO [Primary Care Provider] - 3-5 Days if not improving
[2018-09-30 11:23] VITALS: BP 128/74; PULSE 61; RESP 15; O2SAT 97
== END 2018-09-30 11:24 | disposition home or self-care (01) ==
PROVIDERS: Emergency Provider Emergency Medicine; Family Provider Family Medicine; PCP Family Medicine
DX: K52.9 Noninfective gastroenteritis and colitis, unspecified (principal); E11.9 Type 2 diabetes mellitus without complications; I10 Essential (primary) hypertension; I25.2 Old myocardial infarction; Z90.49 Acquired absence of other specified parts of digestive tract
CPT/HCPCS: 80048; 80076; 81001; 83690; 85025; 96361; 96374; 96375; 99285; J7030; A4216; J2405

== ENCOUNTER 2018-12-01 11:18 | Emergency (ER) | payer MEDICARE, SELFPAY ==
[2018-12-01 11:19] VITALS: BP 144/117; PULSE 87; RESP 18; TEMP 36.8; O2SAT 98; BMI 38.8
[2018-12-01] MEDS: Ondansetron 4 MG/2 ML Vial IV (11:45)
[2018-12-01] MEDS: Morphine 4 MG/ML Syringe IV (11:45)
--- NOTE | 2018-12-01 11:53 | ED.VISSUMM ---
- ER Visit Summary Date of Service: 12/01/18 Chief Complaint: Abdominal pain History of Present Illness: The patient is a 47 F who presents with abdominal pain that began today. Patient states the pain is over the upper abdomen. Patient describes the pain is stabbing and cramping. Patient admits to nausea but denies any vomiting. Patient denies any diarrhea, melena, or hematochezia. Patient denies any urinary complaints. Patient denies any abnormal vaginal bleeding or discharge. Patient denies any radiation of the pain. Patient states nothing makes the pain better or worse. Physical Examination: Vital signs are stable. Patient is afebrile. Patient is in no acute distress. Oromucosa is pink and moist. Neck is supple. Trachea is midline. There is no JVD noted. Heart was regular rate and rhythm. Lungs are clear and equal bilaterally. Abdomen is soft. Bowel sounds are normal. There is upper abdominal tenderness. There is no rebound or guarding noted. Cranial nerves II through XII are intact. There are no focal motor or sensory deficits noted. Test Results: CBC and comprehensive metabolic profile were within normal limits. Urinalysis does not show any evidence of urinary tract infection. hCG was negative. Emergency Department Course and Treatment: Patient was feeling somewhat better on reevaluation. Patient was given a prescription for Prilosec. Patient was instructed to follow-up with her primary care physician in 5 to 7 days. Patient understood and was agreeable with the plan. All questions were answered. Disposition: Discharge home Impression: Epigastric abdominal pain This note was generated with [employer] dictation software. It may contain incorrect words, spelling, and punctuation that were not noted in review of the chart prior to signing ED Disposition - Plan for ED Patient: Disposition: Home or Assisted Living Diagnosis: Epigastric abdominal pain Instructions: ABDOMINAL PAIN, Unknown Cause, (Female) Prescriptions: Omeprazole [Prilosec] 20 mg PO DAILY #30 cap Prescription Printed Referrals: Margo Tatum DO [Primary Care Provider] - 3-5 Days
[2018-12-01 12:06] LABS: Absolute Lymphocyte Count 2.69 X10^3/ul (0.83-4.51); Absolute Neutrophil Count 3.5 X10^3/uL (2.0-7.7); Basophil# 0.02 X10^3/uL; Basophil% 0.3 % (0-1); Eosinophil# 0.08 X10^3/uL; Eosinophils% 1.2 % (0-5); Hematocrit 42.3 % (37-47); Hemoglobin 14.3 g/dl (12.0-15.0); Lymphocyte # 2.69 X10^3/ul (4.0); Lymphocyte % 40.1 % (19-41); Mean Corp Hgb Conc 33.8 g/gl (32-36); Mean Corpuscular Hgb 29.9 pg (27.0-32.0); Mean Corpuscular Volume 88.5 fL (81-99); Mean Platelet Vol. 10.2 fl (6.2-12.0); Monocyte# 0.45 X10^3/uL; Monocyte% 6.7 % (0-10); Neutrophil # 3.45 X10^3/uL (2.7-7.7); Neutrophil % 51.6 % (47-70); POSITIVE COUNT NO; POSITIVE DIFFERENTIAL NO; POSITIVE MORPHOLOGY NO; Platelet Count 236 K/mm3 (150-450); RBC Distribution Width CV 13.9 % (11.6-14.6); RBC Distribution Width SD 44.4 fl (35.1-43.9); Red Blood Count 4.78 M/mm3 (4.2-5.4); White Blood Count 6.7 K/mm3 (4.4-11.0)
[2018-12-01 12:09] LABS: Internal QC Validated? YES +Cl - CLEAR BKGD; Pregnancy, Serum, hCG Quali. NEGATIVE Negative
[2018-12-01 12:15] LABS: ALB/GLOB Ratio 0.9 RATIO (0.9-2.4); AST(SGOT) 12 U/L (15-37); Alanine Aminotransfer ALT/SGPT 18 U/L (13-56); Albumin, Serum 3.5 g/dL (3.2-5.0); Alkaline Phosphatase 67 U/L (45-117); Anion Gap 4 (5-15); BUN 21 mg/dL (7-18); BUN/Creat Ratio 23.8 RATIO (10-20); Calcium,Total 8.6 mg/dL (8.5-10.1); Chloride 111 mmol/L (98-107); Creatinine, Serum 0.88 mg/dL (0.55-1.02); EST Glomerular Filtration Rate 72 mL/min (>60); Est Glom Filt Rate - Afr Amer 88 mL/min (>60); Estimated Creatinine Clearance 67.51 ml/min; Globulin 4.1 g/dL (2.2-4.2); Glucose 132 mg/dL (74-106); Lipase 151 U/L (73-393); Potassium 4.1 mmol/L (3.5-5.1); Protein, Total 7.6 g/dL (6.4-8.2); Sodium Level 140 mmol/L (136-145)
[2018-12-01 13:03] LABS: Bacteria 0 SEEN /hpf (None Seen); Mucous, Urine 0 SEEN /hpf (<or=2+); Red Blood Cells-Urine 0 SEEN /hpf (0-5)
[2018-12-01 13:05] LABS: Color, Urine Yellow (Yellow); Glucose, Dipstick Normal (Normal); Ketone-Dipstick Negative (Negative); Leukocyte Esterase-Dipstick 25 /ul (Negative); Nitrite-Dipstick Negative (Negative); Occult Blood-Urine Negative /ul (Negative); Protein-Dipstick 15 mg/dl (Negative); Urine Bilirubin Dipstick Negative (Negative); Urine Clarity Sl. Cloudy (Clear); Urine Urobilinogen Normal (Normal)
[2018-12-01 13:11] LABS: Squamous Epithelial Cells - UA 0-5 SEEN /hpf (5-10); White Blood Cells 0-5 SEEN /hpf (0-5)
[2018-12-01 14:14] VITALS: BP 121/46; PULSE 66; RESP 17; O2SAT 100
== END 2018-12-01 14:15 | disposition home or self-care (01) ==
PROVIDERS: Emergency Provider Emergency Medicine; Family Provider Family Medicine; PCP Family Medicine
DX: R10.13 Epigastric pain (principal); R11.0 Nausea; M54.2 Cervicalgia; E66.9 Obesity, unspecified; Z79.899 Other long term (current) drug therapy
CPT/HCPCS: 80053; 81001; 83690; 84703; 85025; 96374; 96375; 99283; J7030; A4216; J2405

== ENCOUNTER → 2018-12-14 15:14 | Outpatient (CLI) | payer MEDICARE, SELFPAY ==
[2018-12-01 11:19] VITALS: BMI 38.8
[2018-12-14 17:43] LABS: ALB/GLOB Ratio 0.8 RATIO (0.9-2.4); AST(SGOT) 10 U/L (15-37); Alanine Aminotransfer ALT/SGPT 22 U/L (13-56); Albumin, Serum 3.5 g/dL (3.2-5.0); Alkaline Phosphatase 71 U/L (45-117); Anion Gap 7 (5-15); BUN 20 mg/dL (7-18); BUN/Creat Ratio 24.5 RATIO (10-20); Calcium,Total 8.7 mg/dL (8.5-10.1); Chloride 110 mmol/L (98-107); Cholesterol 203 mg/dL (200); Creatinine, Serum 0.82 mg/dL (0.55-1.02); EST Glomerular Filtration Rate 79 mL/min (>60); Est Glom Filt Rate - Afr Amer 96 mL/min (>60); Globulin 4.2 g/dL (2.2-4.2); Glucose 141 mg/dL (74-106); High Density Lipoprotein 50 mg/dL; Potassium 4.1 mmol/L (3.5-5.1); Protein, Total 7.7 g/dL (6.4-8.2); Sodium Level 141 mmol/L (136-145); Triglycerides 219 mg/dL; Very Low Density Lipoprotein 44 mg/dL (5-40)
[2018-12-14 17:47] LABS: Absolute Neutrophil Count 5.8 X10^3/uL (2.0-7.7); Basophil# 0.01 X10^3/uL; Basophil% 0.1 % (0-1); Eosinophil# 0.04 X10^3/uL; Eosinophils% 0.5 % (0-5); Hematocrit 42.3 % (37-47); Hemoglobin 13.9 g/dl (12.0-15.0); Hemoglobin A1c 6.5 % (4.2-6.3); Lymphocyte % 24.7 % (19-41); Mean Corp Hgb Conc 32.9 g/gl (32-36); Mean Corpuscular Volume 91.4 fL (81-99); Mean Platelet Vol. 10.2 fl (6.2-12.0); Monocyte# 0.52 X10^3/uL; Monocyte% 6.1 % (0-10); Neutrophil % 68.4 % (47-70); Platelet Count 266 K/mm3 (150-450); RBC Distribution Width CV 14.2 % (11.6-14.6); RBC Distribution Width SD 47.1 fl (35.1-43.9); Red Blood Count 4.63 M/mm3 (4.2-5.4); White Blood Count 8.5 K/mm3 (4.4-11.0)
[2018-12-14 18:00] LABS: POSITIVE COUNT NO; POSITIVE DIFFERENTIAL NO; POSITIVE MORPHOLOGY NO
== END ==
PROVIDERS: Family Provider Family Medicine; PCP Family Medicine; Visit Provider Family Medicine
DX: E11.9 Type 2 diabetes mellitus without complications (principal); R10.13 Epigastric pain
CPT/HCPCS: 36415; 80053; 80061; 82043; 82570; 83036; 85025

== ENCOUNTER 2019-01-25 09:02 | Emergency (ER) | payer MEDICARE, SELFPAY ==
[2019-01-25 09:04] VITALS: BP 182/81; PULSE 87; RESP 16; TEMP 37.1; O2SAT 99; BMI 39.2
--- NOTE | 2019-01-25 09:25 | RAD_ITS ---
STUDY: X-RAY - ACUTE ABDOMINAL SERIES REASON FOR EXAM: Female, 48 years old. Upper abdominal pain TECHNIQUE: Single view of the chest. Supine, erect, and decubitus view(s) of the abdomen were obtained. COMPARISON: None. FINDINGS: The lungs are clear and expanded. Normal size heart. Normal mediastinum and tony. Normal visualized pulmonary arteries. Normal visualized aortic arch and descending thoracic aorta. There is a non-specific bowel gas pattern. The soft tissue structures of the abdomen and pelvis are unremarkable. Normal visualized osseous structures. There is a neurostimulator device overlying the left lower quadrant with leads overlying the lower thoracic spine. There are surgical clips in the right upper quadrant. RAD/Acute Abdomen Inc Chest IMPRESSION: Normal x-ray examination of the chest, abdomen, and pelvis. Electronically Signed: Kathleen Robles, at 10:49 EDT Tel , Service support ,
--- NOTE | 2019-01-25 09:25 | ED.DCSUM_ITS ---
History of Present Illness Chief Complaint: Abd Pain Informant: Patient - Abdominal Pain/Flank Pain Onset: Hours - 8 Context: Sudden Onset - woke her up from sleep Timing: Continuous Quality: Aching Location: Epigastric Current Severity: Severe Maximum Severity: Severe Worsened by: Nothing Relieved by: Nothing - tried a toradol -- no help - Nausea/Vomiting/Emesis GI Symptom: Nausea. Negative for: Vomiting - Diarrhea/Melena/Hematochezia GI Symptom: Negative for: Diarrhea, Melena, Hematochezia Associated Symptoms: Negative for: Dysuria, Frequency, Hematuria, Urgency Narrative: Patient states she has been having this pain for over a year and had an EGD 3 weeks ago that did not show anything. This is the same discomfort but worse. She does not have any known triggers. This started while she was sleeping early this morning. Pain occasionally radiates into her back. She does not drink alcohol. Denies any thoracic symptoms. Has had prior cholecystectomy. Prior similar symptoms: Yes - Past Medical History (1) Benign hypertension Status: Chronic (2) Chronic low back pain Status: Chronic (3) History of back surgery Status: Chronic (4) Hyperlipidemia Status: Chronic (5) Type 2 diabetes mellitus Status: Chronic Past Medical History - Allergies and Home Meds Allergies/Adverse Reactions: Allergies amoxicillin trihydrate [From Augmentin] Adverse Reaction (Verified 01/25/19 09:04) Vomiting potassium clavulanate [From Augmentin] Adverse Reaction (Verified 01/25/19 09:04) Vomiting Primary Care Physician: Margo Tatum DO [Primary Care Provider] - 3-5 Days if not improving Surgical History: appendectomy, cholecystectomy, hysterectomy, - - Multiple laparoscopies Smoking Status: Former smoker Alcohol: None Review of Systems General: Denies: Chills, Fever, Sweats Eyes: Denies: Visual changes - bilaterally, Diplopia ENT: Denies: Rhinorrhea, Sore throat Cardiovascular: Denies: Chest pain, Palpitations Respiratory: Denies: Dyspnea, Cough, Dyspnea on exertion Gastrointestinal: Reports: Abdominal pain, Nausea, Constipation - Chronic, as usual; had small bowel movement this morning. Denies: Vomiting, Diarrhea, Melena, Hematochezia Genitourinary: Denies: Dysuria, Hematuria, Frequency Musculoskeletal: Denies: Back pain, Extremity Pain Skin: Denies: Rash, Wounds Neurological: Denies: Headache, Weakness, Numbness Physical Exam Vital Signs/Narrative: Vital Signs Temp Pulse Resp BP Pulse Ox 01/25/19 09:04 98.7 F 87 16 182/81 H 99 Inital Vital Signs reviewed: Yes General: Well nourished, Well developed, Obese, No Acute Distress - But uncomfortable Head: Normocephalic, Atraumatic Eyes: Perrl, EOMI ENT: Moist mucous membranes, No rhinorrhea Neck: Supple, Nontender Cardiovascular: Regular rate, Regular rhythm, No murmurs, Normal S1, Normal S2 Respiratory: No distress, CTA bilaterally, Chest nontender Abdomen: Soft, Nondistended, No masses, Tender - Across upper abdomen, worst in the epigastrium, Hypoactive bowel sounds. Negative for: Guarding, Rebound tenderness Back: Nontender, Normal Inspection. Negative for: CVA tenderness Extremities: Nontender, No edema Skin: Normal color, No rash, No Trauma Neurological: Alert, Oriented x3, Cranial nerves II-XII grossly intact, Normal Strength, Normal Sensation Psychological: Normal Mood, - - mildly anxious Diagnostic/Tx/Re-eval Impressions Acute Abdomen Series 01/25/19 09:25 IMPRESSION: Normal x-ray examination of the chest, abdomen, and pelvis. Electronically Signed: Kathleen Robles, at 10:49 EDT Tel , Service support , 01/25/19 09:25 Acute Abdomen Inc Chest [RAD] Stat Laboratory Results 01/25/19 01/25/19 09:26 09:26 WBC 6.2 RBC 4.22 Hgb 12.9 Hct 38.4 MCV 91.0 MCH 30.6 MCHC 33.6 RDW Std Deviation 43.8 RDW Coeff of Tomi 13.2 Plt Count 185 MPV 9.8 Immature Gran % (Auto) 0.300 Neut % (Auto) 45.3 L Lymph % (Auto) 46.9 H [place] % (Auto) 6.0 Eos % (Auto) 1.0 Baso % (Auto) 0.5 Absolute Neuts (auto) 2.8 Absolute Lymphs (auto) 2.90 Nucleated RBC % 0 Sodium 144 Potassium 3.3 L Chloride 110 H Carbon Dioxide 27.0 Anion Gap 7 BUN 17 Creatinine 0.74 Estim Creat Clear Calc 79.41 Est GFR (MDRD) Af Amer 108 Est GFR (MDRD) Non-Af 89 BUN/Creatinine Ratio 23.1 H Glucose 114 H Calcium 8.5 Total Bilirubin 0.30 AST 11 L ALT 18 Alkaline Phosphatase 58 Total Protein 7.0 Albumin 3.2 Globulin 3.8 Albumin/Globulin Ratio 0.8 L Lipase 171 - Medical Decision Making Work-up is unremarkable except for slightly low potassium, which could be transient due to respiratory alkalosis from anxiety as she does appear anxious. She was given a GI cocktail along with some morphine, Bentyl, and Zofran. This helped transiently but the pain came back. Acute abdominal series is normal, there is no sign of a perforated viscus or bowel obstruction. Patient was fabiana tionally given calcium carbonate and Carafate, it helped. Plan is to discharge her home with a prescription for Carafate, she is comfortable with that plan. ED Disposition - Plan for ED Patient: Disposition: Home or Assisted Living Diagnosis: Epigastric abdominal pain Instructions: ABDOMINAL PAIN, Unknown Cause, (Female) Prescriptions: Sucralfate [Carafate] 1 gm PO 4X/DAY #20 tab Prescription Printed Referrals: Margo Tatum DO [Primary Care Provider] - 3-5 Days if not improving
[2019-01-25 09:33] LABS: Absolute Neutrophil Count 2.8 X10^3/uL (2.0-7.7); Basophil# 0.03 X10^3/uL; Basophil% 0.5 % (0-1); Eosinophil# 0.06 X10^3/uL; Hematocrit 38.4 % (37-47); Hemoglobin 12.9 g/dL (12.0-15.0); Lymphocyte % 46.9 % (19-41); Mean Corp Hgb Conc 33.6 g/dL (32-36); Mean Corpuscular Hgb 30.6 pg (27.0-32.0); Mean Platelet Vol. 9.8 fl (6.2-12.0); Monocyte# 0.37 X10^3/uL; NRBC Flagged by Analyzer 0 % (0-5); Neutrophil % 45.3 % (47-70); Platelet Count 185 K/mm3 (150-450); RBC Distribution Width CV 13.2 % (11.6-14.6); RBC Distribution Width SD 43.8 fl (35.1-43.9); Red Blood Count 4.22 M/mm3 (4.2-5.4); White Blood Count 6.2 K/mm3 (4.4-11.0)
[2019-01-25] MEDS: Ondansetron 4 MG/2 ML Vial IV (09:48)
[2019-01-25 09:49] LABS: ALB/GLOB Ratio 0.8 RATIO (0.9-2.4); AST(SGOT) 11 U/L (15-37); Alanine Aminotransfer ALT/SGPT 18 U/L (13-56); Albumin, Serum 3.2 g/dL (3.2-5.0); Alkaline Phosphatase 58 U/L (45-117); Anion Gap 7 (5-15); BUN 17 mg/dL (7-18); BUN/Creat Ratio 23.1 RATIO (10-20); Calcium,Total 8.5 mg/dL (8.5-10.1); Chloride 110 mmol/L (98-107); Creatinine, Serum 0.74 mg/dL (0.55-1.02); EST Glomerular Filtration Rate 89 mL/min (>60); Est Glom Filt Rate - Afr Amer 108 mL/min (>60); Estimated Creatinine Clearance 79.41 ml/min; Globulin 3.8 g/dL (2.2-4.2); Glucose 114 mg/dL (74-106); Lipase 171 U/L (73-393); Potassium 3.3 mmol/L (3.5-5.1); Sodium Level 144 mmol/L (136-145)
[2019-01-25] MEDS: Morphine 4 MG/ML Syringe IV (09:49)
[2019-01-25] MEDS: Mag Hydrox/Al Hydrox/Simeth 30 ML UDC PO (09:49)
[2019-01-25] MEDS: Dicyclomine 10 MG Capsule 20 MG PO (09:49)
[2019-01-25] MEDS: 0.9% Normal Saline 1,000 ML 125 ML IV (09:51)
[2019-01-25 12:10] VITALS: RESP 18
[2019-01-25] MEDS: Sucralfate 1 GM Tablet PO (12:15)
[2019-01-25] MEDS: Calcium Carbonate 500 MG Tablet PO (12:15)
== END 2019-01-25 13:34 | disposition home or self-care (01) ==
PROVIDERS: Emergency Provider Emergency Medicine; Family Provider Family Medicine; PCP Family Medicine
DX: R10.13 Epigastric pain (principal); K59.09 Other constipation; E87.6 Hypokalemia; M54.5 Low back pain; G89.29 Other chronic pain; E11.9 Type 2 diabetes mellitus without complications; I10 Essential (primary) hypertension; E78.5 Hyperlipidemia, unspecified; Z79.899 Other long term (current) drug therapy; Z88.0 Allergy status to penicillin; Z87.891 Personal history of nicotine dependence; Z90.49 Acquired absence of other specified parts of digestive tract; Z90.710 Acquired absence of both cervix and uterus
CPT/HCPCS: 74022; 80053; 83690; 85025; 96361; 96374; 96375; 99285; J7030; A4216; J2405

== ENCOUNTER → 2019-10-19 08:01 | Outpatient (CLI) | payer MEDICARE, SELFPAY ==
--- NOTE | 2019-10-19 08:17 | RAD_ITS ---
STUDY: X-RAY - CERVICAL SPINE REASON FOR EXAM: Female, 48 years old. PAIN IN ENTIRE NECK. PATIENT STATES HAS HAD PAIN IN HER NECK FOR A LONG TIME. TECHNIQUE: 3 view(s) of the cervical spine were obtained. COMPARISON: Comparison is made with prior examination dated May 02, 2017. FINDINGS: Normal anterior atlantoaxial articulation. Normal odontoid process. There is straightening of the normal cervical lordosis. Anterior spondylosis at the C3-C4, C4-C5 and C5-C6 levels. Disc space narrowing at the C5-C6 and C6-C7 levels. Normal visualized intervertebral neuroforamina. The soft tissue structures are unremarkable. RAD/Cerv Spine 2 or 3 Views IMPRESSION: Spondylosis and disc space narrowing as described. Electronically Signed: Mario Alberto Joy, at 8:31 EDT , Service support ,
== END ==
PROVIDERS: PCP Family Medicine; Referring Provider Anesthesiology Pain Medicine; Visit Provider Anesthesiology Pain Medicine
DX: M54.2 Cervicalgia (principal)
CPT/HCPCS: 72040

== ENCOUNTER 2019-10-20 19:58 | Emergency (ER) | payer MEDICARE, MEDICAID, SELFPAY ==
[2019-10-20 20:00] VITALS: BP 149/72; PULSE 107; RESP 18; TEMP 37.1; O2SAT 97; BMI 39.3
--- NOTE | 2019-10-20 20:11 | EKG12_ITS ---
Test Reason : FEVER Blood Pressure : / mmHG Vent. Rate : 093 BPM Atrial Rate : 093 BPM P-R Int : 166 ms QRS Dur : 108 ms QT Int : 368 ms P-R-T Axes : 055 054 034 degrees QTc Int : 457 ms Sinus rhythm with occasional Premature ventricular complexes Otherwise normal ECG Confirmed by UGCCI GEE, PAT ([id number]), movie editor NATALIYA SEGOVIA ([id number]) on 10/23/2019 3:25:16 PM Referred By: CHUCK Confirmed By:PAT DUCKWORTH MD
--- NOTE | 2019-10-20 20:11 | RAD_ITS ---
STUDY: X-RAY CHEST REASON FOR EXAM: Female, 48 years old. fever, cough, sob x today TECHNIQUE: Single AP portable view of the chest. COMPARISON: 12 Oct 2015 FINDINGS: Mild chronic interstitial markings and appearance with no distinct focal airspace disease. There is no demonstrated pleural abnormality. Normal size heart. Normal mediastinum and tony. Normal visualized pulmonary arteries. Normal visualized aortic arch and descending thoracic aorta. Normal visualized thoracic spine. Normal visualized ribs, clavicles, and shoulders. There is no demonstrated abnormality of the visualized soft tissue structures of the upper abdomen. RAD/Chest 1 View (Portable) IMPRESSION: No evidence of acute cardiopulmonary process. Electronically Signed: Dmitry Fuentes DO at 20:47 EDT , Service support ,
--- NOTE | 2019-10-20 20:12 | ED.DCSUM_ITS ---
- ER Visit Summary Date of Service: 10/20/19 Chief Complaint: Shortness of breath History of Present Illness: The patient is a 48 F who developed shortness of breath today. She states that she got very winded when she was walking across the room. Exertion made it worse. Rest made it better. She has had a cough is not productive of sputum. She has had some intermittent chest pains which she describes as stabbing and sharp. She took her temperature at home and it was 100.1 ?F. She does have a history of bronchitis and pneumonia. No known exposures to anybody with coronavirus. No leg swelling. No history of DVT or PE. Physical Examination: Vital signs reviewed. Patient is in no acute distress but is conversationally dyspneic. HEENT exam unremarkable. Heart is regular rate and rhythm without murmurs. Lungs are clear to auscultation. Abdomen is soft and nontender. Extremities reveal no edema. Peripheral pulses are equal. Skin exam normal. Neurologic exam normal. Test Results: EKG is sinus rhythm with PVCs. Rate of 93. No ST changes. Chest x-ray normal. Laboratory studies show a normal white blood cell count. Sodium 133, glucose 360. Troponin and BNP normal. D-dimer 0.58. CTA of the chest is unremarkable Emergency Department Course and Treatment: Patient was given 4 puffs of albuterol MDI. I do not see any acute causes for her shortness of breath and I do not feel that this is a cardiac etiology. She may have coronavirus. I will send off testing for this. She will quarantine at home. She will take the MDI home and use this as needed. She will call her doctor for follow-up Treatment Plan: Disposition: Discharge Impression: Dyspnea, hyperglycemia, suspected COVID-19 This note was generated with [employer] software. It may contain incorrect words, spelling, and punctuation that were not noted in review of the chart prior to signing ED Disposition - Plan for ED Patient: Disposition: Home or Assisted Living Instructions: ED Dyspnea Referrals: Margo Tatum DO [Primary Care Provider] -
[2019-10-20 21:13] LABS: Absolute Lymphocyte Count 2.31 X10^3/uL (0.83-4.51); Absolute Neutrophil Count 2.8 X10^3/uL (2.0-7.7); Basophil# 0.03 X10^3/uL; Basophil% 0.5 % (0-1); Eosinophil# 0.09 X10^3/uL; Eosinophils% 1.6 % (0-5); Hematocrit 44.5 % (37-47); Hemoglobin 15.1 g/dL (12.0-15.0); Lymphocyte # 2.31 X10^3/ul (4.0); Mean Corp Hgb Conc 33.9 g/dL (32-36); Mean Corpuscular Hgb 30.8 pg (27.0-32.0); Mean Corpuscular Volume 90.6 fL (81-99); Mean Platelet Vol. 10.2 fl (6.2-12.0); Monocyte# 0.43 X10^3/uL; Monocyte% 7.6 % (0-10); NRBC Flagged by Analyzer 0 % (0-5); Neutrophil # 2.76 X10^3/uL (2.7-7.7); Neutrophil % 49.1 % (47-70); Platelet Count 204 K/mm3 (150-450); RBC Distribution Width CV 13.5 % (11.6-14.6); Red Blood Count 4.91 M/mm3 (4.2-5.4); White Blood Count 5.6 K/mm3 (4.4-11.0)
[2019-10-20 21:28] LABS: Anion Gap 5 (5-15); BUN 12 mg/dL (7-18); BUN/Creat Ratio 12.2 RATIO (10-20); Chloride 102 mmol/L (98-107); Creatinine, Serum 0.99 mg/dL (0.55-1.02); EST Glomerular Filtration Rate 63 mL/min (>60); Est Glom Filt Rate - Afr Amer 77 mL/min (>60); Estimated Creatinine Clearance 59.36 ml/min; Glucose 360 mg/dL (74-106); Potassium 4.5 mmol/L (3.5-5.1); Sodium Level 133 mmol/L (136-145)
[2019-10-20 21:31] LABS: BNP,B-Type NATRIURETIC PEPTIDE 36.2 pg/mL (0-100)
[2019-10-20 21:45] LABS: D-Dimer Quantitative (DVT/PE) 0.58 FEU/ug/m (0.27-0.49)
--- NOTE | 2019-10-20 21:54 | CT_ITS ---
STUDY: CTA CHEST REASON FOR EXAM: Female, 48 years old. PT STATED SHORT OF BREATH AND COUGH STARTING EARLIER TODAY, ELEVATED DDIMER RADIATION DOSAGE (If Supplied By Facility): CTDIvol = ( 11.47 ) mGy, DLP = ( 583.55 ) mGycm TECHNIQUE: The examination was performed with the intravenous administration of 100ML ISOVUE 370. Post-processing of the angiographic images was performed, with multiplanar reformation and 3D reconstruction. Individualized dose optimization techniques were used for this CT. COMPARISON: 05/13/2018 FINDINGS: Stable thyroid nodules. Normal enhancement of the main pulmonary artery and right and left pulmonary arteries. Normal enhancement of the bilateral peripheral pulmonary arteries. There is no demonstrated pulmonary embolism. Normal thoracic aorta and visualized great vessels. There is no demonstrated aortic dissection. Normal heart and pericardium. Normal mediastinum. Normal hilar regions. Normal visualized trachea and bronchi. The lungs are well expanded. Normal pulmonary parenchyma. Normal pleura. Normal chest wall structures. Thoracic spine stimulator. Cholecystectomy. CT/CTA Chest W/WO Contrast IMPRESSION: Normal CTA chest examination, without a demonstrated pulmonary embolism or aortic dissection. Electronically Signed: Victorino Neumann MD at 23:00 EDT Tel , Service support ,
[2019-10-20 21:59] VITALS: BP 149/77; PULSE 103; RESP 20; O2SAT 95
[2019-10-20 23:38] VITALS: BP 139/99; PULSE 102; RESP 18; O2SAT 98
== END 2019-10-20 23:39 | disposition home or self-care (01) ==
PROVIDERS: Emergency Provider Emergency Medicine; PCP Family Medicine
DX: R06.02 Shortness of breath (principal); E11.65 Type 2 diabetes mellitus with hyperglycemia; Z87.01 Personal history of pneumonia (recurrent); Z87.09 Personal history of other diseases of the respiratory system; Z79.84 Long term (current) use of oral hypoglycemic drugs
CPT/HCPCS: 71045; 71275; 80048; 83880; 84484; 85025; 85379; 87635; 93005; 99283; G2023; Q9967; A4216; U0004

== ENCOUNTER → 2020-04-22 14:21 | Outpatient (CLI) | payer MEDICARE, MEDICAID, SELFPAY ==
[2020-04-22 17:38] LABS: Hemoglobin A1c 10.1 % (3.8-5.6)
[2020-04-22 17:42] LABS: ALB/GLOB Ratio 0.9 RATIO (0.9-2.4); AST(SGOT) 48 U/L (15-37); Alanine Aminotransfer ALT/SGPT 70 U/L (13-56); Albumin, Serum 3.6 g/dL (3.2-5.0); Alkaline Phosphatase 86 U/L (45-117); Anion Gap 7 (5-15); BUN 21 mg/dL (7-18); BUN/Creat Ratio 24.3 RATIO (10-20); Calcium,Total 9.7 mg/dL (8.5-10.1); Chloride 106 mmol/L (98-107); Creatinine, Serum 0.86 mg/dL (0.55-1.02); EST Glomerular Filtration Rate 74 mL/min (>60); Est Glom Filt Rate - Afr Amer 89 mL/min (>60); Globulin 4.1 g/dL (2.2-4.2); Glucose 215 mg/dL (74-106); Potassium 3.8 mmol/L (3.5-5.1); Protein, Total 7.7 g/dL (6.4-8.2); Sodium Level 140 mmol/L (136-145)
== END ==
PROVIDERS: PCP Family Medicine; Visit Provider Family Medicine
DX: E11.9 Type 2 diabetes mellitus without complications (principal); Z51.81 Encounter for therapeutic drug level monitoring
CPT/HCPCS: 36415; 80053; 83036

== ENCOUNTER 2020-06-12 01:29 | Inpatient (IN) | payer MEDICARE, MEDICAID, SELFPAY ==
[2020-06-12] VITALS (27 sets, daily range): BP systolic 118–192; BP diastolic 63–124; PULSE 84–121; RESP 16–28; TEMP 36.7–36.9; O2SAT 94–99; BMI 40.8; BMI 39.2; BMI 39.3
--- NOTE | 2020-06-12 01:30 | EKG12_ITS ---
Test Reason : CP Blood Pressure : / mmHG Vent. Rate : 122 BPM Atrial Rate : 122 BPM P-R Int : 138 ms QRS Dur : 150 ms QT Int : 378 ms P-R-T Axes : 065 013 057 degrees QTc Int : 538 ms Sinus tachycardia with occasional Premature ventricular complexes and Fusion complexes Possible Left atrial enlargement Left bundle branch block Abnormal ECG Confirmed by JANAY GEE, JAMEL ([id number]), commercial production editor JAYLIN FRANK ([id number]) on 06/16/2020 9:38:21 AM Referred By: VONDA Confirmed By:JAMEL GUSTAFSON MD
--- NOTE | 2020-06-12 01:30 | RAD_ITS ---
HISTORY: CP ADDITIONAL HISTORY: None provided. EXAMINATION/TECHNIQUE: XR Chest 1 View AP/PA Number of images including paperwork: 1 COMPARISON: 10/20/2019 FINDINGS: LUNGS AND PLEURA: Extensive mixed interstitial and airspace opacities are present bilaterally. Blunting of the left costophrenic angle. No pneumothorax. CARDIAC SILHOUETTE: Stable. MEDIASTINUM AND MINDI: Aortic tortuosity. UPPER ABDOMEN: Unremarkable. SKELETON AND SOFT TISSUES: No acute skeletal findings. Degenerative changes. OTHER DEVICES AND HARDWARE: Spinal stimulator leads. RAD/Chest 1 View (Portable) IMPRESSION: Bilateral infiltrates, nonspecific but possibly asymmetric edema and/or infection. at 0228 Reported and signed by: Aleyda Carballo MD Electronically Signed: Aleyda Carballo MD at 2:28 EST Tel , Service support ,
--- NOTE | 2020-06-12 01:31 | ED.VIS.GEN ---
History of Present Illness Chief Complaint: Chest Pain Informant: Patient Onset: Yesterday, Days Context: Sudden Onset Timing: Intermittent Quality: Tight pressure Location: Midsternal Current Severity: Moderate Maximum Severity: Severe Worsened by: Walking Relieved by: Nothing Associated Symptoms: Nausea last Tuesday, today shortness of breath and nausea Narrative: Patient 49-year-old woman with history of non-ST elevation NC, hypertension on no medication, diabetes and hypercholesterolemia who presents with chest pressure tightness that started at 1700 on June 11. She thought that discomfort would go away. This was associated with dyspnea and nausea. There is no radiation of the pain. She denies history of PE or DVT. She denies leg pain, swelling discoloration. She has no known exposure to Covid. She states this past weekend she had tightness. The episode lasted for hours. She states that after vomiting she felt better. She denies fever, chills night sweats. She has rhinorrhea, congestion postnasal drainage. She denies sore throat. Denies change in taste or smell. 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 She works at [employer]. No one is ill with Covid. She denies cough. She denies vomiting or diarrhea. Denies black or maroon stool. Prior similar symptoms: Yes - 2010, non-ST elevation NC Recent Illness/Hospitalization: No - Past Medical History (1) Old non-ST elevation myocardial infarction (NSTEMI) Status: Acute (2) Benign hypertension Status: Chronic (3) Chronic low back pain Status: Chronic (4) Hyperlipidemia Status: Chronic (5) Type 2 diabetes mellitus Status: Chronic Past Medical History - Allergies and Home Meds Allergies/Adverse Reactions: Allergies amoxicillin trihydrate [From Augmentin] Adverse Reaction (Verified 06/12/20 01:47) Vomiting potassium clavulanate [From Augmentin] Adverse Reaction (Verified 06/12/20 01:47) Vomiting Primary Care Physician: Margo Tatum DO [Primary Care Provider] - Prior records reviewed: Yes Surgical History: appendectomy, cholecystectomy, hysterectomy, - - Multiple laparoscopies Lives: Spouse/ Significant Other Smoking Status: Former smoker Alcohol: None Drugs: None - Family History Maternal Family History: Reports: Heart Disease Paternal Family History: Reports: Unknown Review of Systems General: Denies: Chills, Fever, Malaise Eyes: Denies: Visual changes - bilaterally, Blurred Vision - bilaterally ENT: Denies: Bilateral ear pain, Rhinorrhea, Sore throat Cardiovascular: Reports: Chest pain, Palpitations. Denies: Heart racing Respiratory: Reports: Dyspnea, Dyspnea on exertion. Denies: Cough, Sputum, Orthopnea, Paroxysmal nocturnal dyspnea Gastrointestinal: Reports: Nausea, Vomiting. Denies: Abdominal pain, Diarrhea, Constipation, Melena, Hematochezia Genitourinary: Denies: Dysuria, Hematuria Musculoskeletal: Denies: Myalgias, Arthralgias, Neck pain, Back pain, Swelling, Extremity Pain Skin: Denies: Rash, Wounds Neurological: Denies: Headache, Weakness, Parasthesia Psych: Denies: Anxiety Endocrine: Denies: Polyuria, Polydipsia Hematologic: Denies: Easy bruising, Easy bleeding Physical Exam Inital Vital Signs reviewed: Yes General: Well nourished, Well developed, Obese, Acute Distress - She is panting. Respirations are rapid and shallow. Head: Normocephalic, Atraumatic Eyes: Perrl, EOMI. Negative for: Pale conjunctiva, Scleral icterus ENT: Moist mucous membranes, No rhinorrhea Neck: Supple, Nontender, No lymphadenopathy, No JVD Cardiovascular: Regular rhythm, No murmurs, Normal S1, Normal S2, Tachycardia Respiratory: CTA bilaterally, Chest nontender, - - Shallow rapid breaths. Negative for: No distress, Rales, Rhonchi, Wheezing Abdomen: Soft, Nontender, Nondistended, Normal bowel sounds Back: Nontender, Normal Inspection Extremities: Nontender, No edema, - - There is no asymmetry, swelling, discoloration, leg vein distention, palpable cords or tenderness along the distribution of the deep venous system.. Negative for: Calf Tenderness Skin: Normal color, No rash, No Trauma. Negative for: Cyanosis, Diaphoresis, Jaundice Neurological: Negative for: Alert, Oriented x3, Cranial nerves II-XII grossly intact, Normal Strength, Normal Sensation, Normal Gait Psychological: - - Margaret appears anxious Diagnostic/Tx/Re-eval Chest X-Ray - ED: 1 View, Read by ED Physician, Right Infiltrate, Left Infiltrate, - - Single view portable x-ray interpreted by me at 0220. Patient has interstitial fluffiness suggestive of congestive heart failure versus pneumonia. CTA was obtained because of concern for PE because of abrupt onset of shortness of breath with tachycardia and tachypnea. Impressions Chest X-Ray 06/12/20 01:30 IMPRESSION: Bilateral infiltrates, nonspecific but possibly asymmetric edema and/or infection. at 0228 Reported and signed by: Aleyda Carballo MD Electronically Signed: Aleyda Carballo MD at 2:28 EST Tel , Service support , Chest CTA 06/12/20 02:36 IMPRESSION: 1. No pulmonary embolus detected. 2. Cardiomegaly with evidence of congestive heart failure. 3. Small focal opacities are noted in the peripheral lungs. Correlate for evidence of infection such as COVID-19. Individualized dose optimization techniques were used for this CT. at 0335 Reported and signed by: Aleyda Carballo MD Electronically Signed: Aleyda Carballo MD at 3:35 EST Tel , Service support , 06/12/20 01:30 Chest 1 View (Portable) [RAD] Stat 06/12/20 02:36 CTA Chest W/WO Contrast [CT] Stat Laboratory Results 06/12/20 06/12/20 01:44 01:44 WBC 6.6 RBC 4.49 Hgb 13.9 Hct 41.5 MCV 92.4 MCH 31.0 MCHC 33.5 RDW Std Deviation 45.1 H RDW Coeff of Tomi 13.3 Plt Count 209 MPV 10.2 Immature Gran % (Auto) 0.200 Neut % (Auto) 56.2 Lymph % (Auto) 37.2 [place] % (Auto) 5.0 Eos % (Auto) 1.1 Baso % (Auto) 0.3 Absolute Neuts (auto) 3.7 Absolute Lymphs (auto) 2.44 Nucleated RBC % 0 Sodium 141 Potassium 3.7 Chloride 111 H Carbon Dioxide 24.0 Anion Gap 6 BUN 21 H Creatinine 0.86 Estim Creat Clear Calc 67.58 Est GFR (MDRD) Af Amer 89 Est GFR (MDRD) Non-Af 74 BUN/Creatinine Ratio 24.3 H Glucose 181 H Calcium 8.6 Troponin I 0.023 Radiology interpreted CTA as negative for PE. There is peripheral infiltrates and cardiomegaly with evidence of CHF. Since there is concern for Covid Covid test was ordered. BNP was ordered. The infiltrates may explain her dyspnea. However 1 would not expect acute onset of shortness of breath at patient is reporting. This would be more consistent with acute mild congestive heart failure. Will await results of Covid test prior to treating with antibiotics. Patient will require admission to the hospital for further diagnostic work-up. Test for Covid was negative. BNP is slightly elevated, 283. Patient states she had minimal improvement with morphine. She still is tachycardic and tachypneic. The hospitalist was paged for admission. Suspect patient will need an echo to evaluate for cardiac function. With her having persistent tachycardia and no evidence of pulmonary embolus this may represent myocarditis. She was treated with Rocephin and azithromycin for bilateral interstitial infiltrates and suspicion for atypical or viral pneumonia. - EKG Initial EKG Interpretation: Sinus Tachycardia - Sinus tachycardia with premature ventricular beats noted. Rate is 122. VT interval 138 ms. QRS duration 150 ms. QT durations are 78 ms. [place] the left. Patient does have a left bundle branch block noted. This is new compared to EKG performed on October 20, 2019. Prior: Changed - Medical Decision Making With prior history of coronary disease, non-ST elevation NC, and history of smoking, diabetes, hypertension and description of chest discomfort need to rule out cardiac versus noncardiac etiology. Cardiac work-up is negative with 8 hours of continuous pain need to entertain possibility of pulmonary embolus and she is tachypneic and tachycardic. Work-up was undertaken. She received 4 baby aspirin. Also, nitroglycerin was ordered for her chest tightness. Patient reported minimal improvement with nitro sublingual. Troponin is normal. What is concerning is that the left bundle branch block is new since October 20, 2019. Graft the CTA of the chest does not reveal obvious pulmonary embolus. There appears to be peripheral infiltrates. Awaiting for formal read by radiologist. Spoke with the hospital Dr. Sanchez. She requested Covid PCR because the sensitivity for the rapid Covid test is only 70%. Since the onset is truly unknown and her presentation is atypical. She also requested IV Lasix. Lasix was ordered. She will speak with injection molding supervisor to determine where best to place patient since she has ongoing pain is tachycardic and tachypneic and the diagnosis is not definitive. She still may have Covid. Case was discussed with the injection molding supervisor. Since the Covid PCR test is pending requested that we keep patient until we know the results. Hospitalist will speak with Dr. Ho regarding need for urgent echo. Patient was anticoagulated with Lovenox. Nitroglycerin drip was ordered for chest pain and preload reduction since x-ray probably represents CHF. Case was discussed with cardiology. - Critical Care Time Critical care time (excluding procedures): 30-74 minutes - Cuticle care time 33 minutes. This includes obtaining history, performing physical exam, documentation, review of prior records. Interpretation of laboratory results and images., Discussing w/Patient &/or Family/Learning Coordinator, Discussing w/Consultants, Arranging Admission or Transfer, - - If BNP is elevated will treat with nitroglycerin for preload reduction and her chest discomfort. If Covid test is negative will treat for community-acquired pneumonia. ED Disposition - Plan for ED Patient: Diagnosis: Midsternal chest pain, Dyspnea, Hyperglycemia due to type 2 diabetes mellitus, New onset left bundle branch block (LBBB), Sinus tachycardia by electrocardiogram, Bilateral interstitial pneumonia Referrals: Margo Tatum DO [Primary Care Provider] -
[2020-06-12] MEDS: Aspirin 81 MG TAB.CHEW 324 MG PO (01:43)
[2020-06-12 01:49] LABS: Absolute Lymphocyte Count 2.44 X10^3/uL (0.83-4.51); Absolute Neutrophil Count 3.7 X10^3/uL (2.0-7.7); Basophil# 0.02 X10^3/uL; Basophil% 0.3 % (0-1); Eosinophil# 0.07 X10^3/uL; Eosinophils% 1.1 % (0-5); Hematocrit 41.5 % (37-47); Hemoglobin 13.9 g/dL (12.0-15.0); Lymphocyte # 2.44 X10^3/ul (4.0); Lymphocyte % 37.2 % (19-41); Mean Corp Hgb Conc 33.5 g/dL (32-36); Mean Corpuscular Volume 92.4 fL (81-99); Mean Platelet Vol. 10.2 fl (6.2-12.0); Monocyte# 0.33 X10^3/uL; NRBC Flagged by Analyzer 0 % (0-5); Neutrophil # 3.69 X10^3/uL (2.7-7.7); Neutrophil % 56.2 % (47-70); Platelet Count 209 K/mm3 (150-450); RBC Distribution Width CV 13.3 % (11.6-14.6); RBC Distribution Width SD 45.1 fl (35.1-43.9); Red Blood Count 4.49 M/mm3 (4.2-5.4); White Blood Count 6.6 K/mm3 (4.4-11.0)
[2020-06-12] MEDS: Nitroglycerin SL (ED/IMG/CATH) 0.4 MG TABLET SUBLINGUAL ×3 (01:52→02:01)
[2020-06-12 02:07] LABS: Anion Gap 6 (5-15); BUN 21 mg/dL (7-18); BUN/Creat Ratio 24.3 RATIO (10-20); Calcium,Total 8.6 mg/dL (8.5-10.1); Chloride 111 mmol/L (98-107); Creatinine, Serum 0.86 mg/dL (0.55-1.02); EST Glomerular Filtration Rate 74 mL/min (>60); Est Glom Filt Rate - Afr Amer 89 mL/min (>60); Estimated Creatinine Clearance 67.58 ml/min; Glucose 181 mg/dL (74-106); Potassium 3.7 mmol/L (3.5-5.1); Sodium Level 141 mmol/L (136-145)
--- NOTE | 2020-06-12 02:36 | CT_ITS ---
HISTORY: PE SUSPECTED, TACHYCARDIA, TACHYPNEA, DYSPNEA, CHEST PAIN, NAUSEA SINCE 6 PM. H/O NSTEMI ADDITIONAL HISTORY: None provided. EXAMINATION/TECHNIQUE: CTA Chest WO/W Contrast Injection PULMONARY EMBOLISM PROTOCOL: 2D and 3D images to include MIP and/or volume rendered images IV CONTRAST: IV 100mL [id number] Number of images including paperwork: 1150 A radiation dose optimization technique was used for this scan. COMPARISON: 10/20/2019 FINDINGS: PULMONARY ARTERIES: No pulmonary arterial filling defects. AORTA AND GREAT VESSELS: No dissection. HEART/PERICARDIUM: Stable enlarged with prominent left ventricle. MEDIASTINUM: Unremarkable. ADENOPATHY: No pathologic appearing adenopathy. THYROID: Bilateral thyroid nodules appear similar. LUNG PARENCHYMA: Interstitial septal thickening and ground glass opacities. Small focal opacities are noted in the peripheral lungs. PLEURAL SPACES: Small to moderate bilateral pleural effusions, slightly larger on the right than the left. UPPER ABDOMEN: Unremarkable. OSSEOUS AND SOFT TISSUE STRUCTURES: No acute skeletal findings. Degenerative changes. Spinal stimulator leads. CT/CTA Chest W/WO Contrast IMPRESSION: 1. No pulmonary embolus detected. 2. Cardiomegaly with evidence of congestive heart failure. 3. Small focal opacities are noted in the peripheral lungs. Correlate for evidence of infection such as COVID-19. Individualized dose optimization techniques were used for this CT. at 0335 Reported and signed by: Aleyda Carballo MD Electronically Signed: Aleyda Carballo MD at 3:35 EST Tel , Service support ,
[2020-06-12] MEDS: Morphine 4 MG/ML Syringe IV ×2 (03:58→10:30)
[2020-06-12] MEDS: Furosemide 40 MG/4 ML Vial IV ×3 (05:08→17:59)
--- NOTE | 2020-06-12 05:17 | ECHOD_ITS ---
Reason For Study: DYSPNEA/SOB Procedure This was a 2D Doppler, Color Flow transthoracic echocardiogram. The study was technically difficult. Due to body habitus. Exam performed portable in patient room. Left Ventricle Normal LV size. Moderate concentric left ventricular hypertrophy. The estimated ejection fraction is 35 %. Stage 1 diastolic dysfunction. There is moderate global hypokinesis of the left ventricle. Mid-Inferior: Severely Hypokinetic. Right Ventricle Normal RV size. Normal systolic function. Atria The left atrium is mildly enlarged. Normal right atrium. Mitral Valve Normal mitral valve. Mild (1+) eccentric mitral valve insufficiency. Tricuspid Valve Normal tricuspid valve. Aortic Valve Normal aortic valve. Trisinus/trileaflet aortic valve. Pulmonic Valve Normal pulmonic valve. Great Vessels Normal aortic root. The pulmonary artery is normal size. Normal inferior vena cava. Pericardium/Pleural No pericardial effusion. MMode/2D Measurements & Calculations LVIDd: 5.6 cm IVSd: 1.4 cm Ao root diam: 2.8 cm LVIDs: 4.0 cm LVPWd: 1.4 cm FS: 28.4 % LAV(MOD-bp): 57.7 ml LA A4 area: 18.4 cm2 LA dimension(2D): 4.2 cm LAV(MOD-bp) Indexed: 27.4 ml/m2 LAV(MOD-sp2): 61.6 ml LAV(MOD-sp4): 54.0 ml Doppler Measurements & Calculations MV E max keven: 109.5 cm/sec Ao V2 max: 115.4 cm/sec LV V1 max: 79.7 cm/sec MV A max keven: 43.1 cm/sec Ao max P.3 mmHg LV V1 max P.5 mmHg MV E/A: 2.5 PA V2 max: 97.3 cm/sec Interpretation Summary Normal LV size. The estimated ejection fraction is 35 %. There is moderate global hypokinesis of the left ventricle. Mid-Inferior: Severely Hypokinetic. Stage 1 diastolic dysfunction. Moderate concentric left ventricular hypertrophy. Ordering Physician: Maribel Sanchez Referring Physician: Margo Tatum Performed By: Elisa Peralta, NEEL, RVT
--- NOTE | 2020-06-12 05:22 | HP.PCM_ITS ---
History of Present Illness Date of Admission: 06/12/20 Chief Complaint: Chest pain/pressure - started night before The patient is a 49 year old F with past medical history of type II DM, hypertension, chronic back pain, history of PA 10 years ago who comes in with complaints of chest pressure/pain that started 5:30 PM on the day of admission he stated that this is a second episode of such pain. A few days earlier she had similar chest pressure pain that was relieved when she puke. Her chest pain started at 530 and has not subsided. It is pressure-like, worse when she walks, associated with some shortness of breath. He denied any orthopnea or PND. She typically sleeps on 3 pillows on account of chronic back pain. Denied any sick contact. Denied any fever or chills or diaphoresis or nausea or vomiting. Vitals in the ED showed temperature of 90 8.5F, heart rate 121, blood pressure 192/124, respiratory 28, SPO2 was 96% on room air. CBCD was unremarkable. CMP was also unremarkable. Troponin was 0.023, BNPep was 286. COVID-19 rapid antigen test was negative. COVID-19 PCR is pending. Chest x-ray shows bilateral infiltrates, nonspecific. CTA of the chest was negative for acute PE. It showed cardiomegaly with evidence of CHF, ground- glass opacities in peripheral lungs Past Medical History Past Medical History (Chronic Problems): Chronic Problems History of back surgery (Chronic) Chronic low back pain (Chronic) Type 2 diabetes mellitus (Chronic) Hyperlipidemia (Chronic) Benign hypertension (Chronic) Allergies amoxicillin trihydrate [From Augmentin] Adverse Reaction (Verified 06/12/20 01:47) Vomiting potassium clavulanate [From Augmentin] Adverse Reaction (Verified 06/12/20 01:47) Vomiting Home Medications: Ambulatory Orders Medication Instructions Recorded traMADol [Ultram (G)] 50 mg PO Q6H PRN PRN 03/22/14 Ondansetron [Zofran Odt] 4 mg PO Q8H PRN PRN #10 tablet 09/30/18 Dicyclomine HCl [Bentyl] 20 mg PO TIDAC PRN 12/01/18 Omeprazole [Prilosec] 20 mg PO DAILY #30 cap 12/01/18 Sucralfate [Carafate] 1 gm PO 4X/DAY #20 tab 01/25/19 Glipizide 10 mg PO BID 10/20/19 Tizanidine HCl 4 mg PO QHS 06/12/20 Surgical History: appendectomy, cholecystectomy, hysterectomy, - - Multiple laparoscopies Psychiatric History: No 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 Denies: Anorexia, Chills, Fever, Malaise, Weight Change Eyes: Denies: Blurred vision, Cataracts, Conjunctivae Inflammation, Pain, Redness, Vision Change HEENT: Denies: Difficulty Hearing, Difficulty Swallowing, Head Aches, Hearing Changes, Sinus Congestion, Sinus Drainage Cardiovascular: Reports: Chest Pain, Chest Pressure, Chest Tightness, Edema. Denies: Claudication, Light Headedness, Orthopnea, Palpitations, Paroxysmal Noc. Dyspnea Respiratory: Reports: Pleuritic Pain, Shortness of Breath, Shortness of breath at rest, Shortness of breath upon exertion. Denies: Cough, Hemoptysis, Sputum production Gastrointestinal: Denies: Abdominal Pain, Nausea, Vomiting Genitourinary: Denies: Dysuria, Frequency, Incontinence, Nocturia Musculoskeletal: Denies: Joint Pain, Joint stiffness, Joint swelling, Joint Tenderness Skin: Denies: Rash, Wounds Neurological: Denies: Numbness, Tingling, Focal weakness Psychiatric: Denies: Anxiety, Depression, Homicidal Ideations, Suicidal Ideations Hematologic/ Lymphatic: Denies: Easy Bruising, Easy Bleeding VTE Information - Inpt Only VTE Present on Admission: No VTE Pharm Prophylaxis ordered?: Yes Patient Problems: Active and Suspected Problems Old non-ST elevation myocardial infarction (NSTEMI) (Acute) Midsternal chest pain (Acute) Dyspnea (Acute) Hyperglycemia due to type 2 diabetes mellitus (Acute) New onset left bundle branch block (LBBB) (Acute) Sinus tachycardia by electrocardiogram (Acute) Bilateral interstitial pneumonia (Acute) - Physical Exam Vitals/I&O's: Vital Signs Temp Pulse Resp BP Pulse Ox 98.1 F 114 H 23 H 118/81 H 95 06/12/20 05:14 06/12/20 05:14 06/12/20 05:14 06/12/20 05:14 06/12/20 05:14 Oxygen Delivery Method Room Air Weight: 108 kg Body Mass Index (BMI) 40.8 Intake and Output for Last 24 Hours 06/10/20 06/11/20 06/12/20 23:59 23:59 23:59 Intake Total 50 / 50 Balance 50 / 50 General: Alert, Oriented x3, Cooperative, - - Mild respiratory distress from discomfort HEENT: Atraumatic, PERRLA, EOMI, Normocephalic Oral: Moist Mucosa Neck: Supple Lungs: Diminished Cardiovascular: Regular rate, Regular Rhythm, Normal S1, Normal S2, No murmurs, Tachycardic Abdomen: Bowel Sounds Present, Soft, Non Tender, Non-Distended, No Hepato- splenomegaly Extremities: Edema - bilateral pedal edema +1 Skin: No rashes, No breakdown Musculoskeletal: No Tenderness to Palpation of Joints or Extremities Lymphatic: No Cervical, Supraclavicular, or Inguinal Adenopathy Neurological: Cranial nerves II-XII grossly intact, Neuro grossly intact Psych/Mental Status: Normal Affect, Appropriate Microbiology Past 72 Hours 06/12/20 03:45 Mucosa - Nose SARS-CoV-2 Antigen (Rapid) - Final Laboratory Results 06/12/20 01:44: WBC 6.6, RBC 4.49, Hgb 13.9, Hct 41.5, MCV 92.4, MCH 31.0, MCHC 33.5, RDW Std Deviation 45.1 H, RDW Coeff of Tomi 13.3, Plt Count 209, MPV 10.2, Immature Gran % (Auto) 0.200, Neut % (Auto) 56.2, Lymph % (Auto) 37.2, [place] % ( Auto) 5.0, Eos % (Auto) 1.1, Baso % (Auto) 0.3, Absolute Neuts (auto) 3.7, Absolute Lymphs (auto) 2.44, Nucleated RBC % 0 06/12/20 01:44: Sodium 141, Potassium 3.7, Chloride 111 H, Carbon Dioxide 24.0, Anion Gap 6, BUN 21 H, Creatinine 0.86, Estim Creat Clear Calc 67.58, Est GFR (MDRD) Af Amer 89, Est GFR (MDRD) Non-Af 74, BUN/Creatinine Ratio 24.3 H, Glucose 181 H, Calcium 8.6, Troponin I 0.023 06/12/20 03:45: Lactic Acid 1.0 06/12/20 03:45: B-Natriuretic Peptide 286.0 H Assessment/Plan All Active Problems Old non-ST elevation myocardial infarction (NSTEMI) (Acute) Midsternal chest pain (Acute) Dyspnea (Acute) Hyperglycemia due to type 2 diabetes mellitus (Acute) New onset left bundle branch block (LBBB) (Acute) Sinus tachycardia by electrocardiogram (Acute) Bilateral interstitial pneumonia (Acute) 1. Acute chest pain, suggestive of unstable angina Patient with remote history of PA, status post cardiac cath showed no obstructive lesions EKG shows tachycardia with PVCs, troponin 0.023 Cardiology consulted from the ED, Lovenox 1 g/kg x 1 given in the ED Continue on nitro drip, trend troponins 2. Acute hypertensive emergency secondary to #1 with pulmonary edema BP remains uncontrolled; patient is not on blood pressure medications at home Continue on nitro drip, Lasix 40 mg IV twice daily 2D echo, cardiology consult 3. Probable acute COVID-19 infection without hypoxia Patient's chest x-ray and CT a of the chest are suggestive COVID-19 rapid antigen test is negative We will check COVID-19 PCR, continue with isolation precaution 4. Type II DM, on oral hypoglycemics at home Hold glipizide, continue on insulin sliding scale with Accu-Cheks 5. Chronic back pain, follows with Dr. Solano in the outpatient, continue on Tizanidine and tramadol 6. Morbid obesity, BMI 40.9, lifestyle modification recommended 7. DVT prophylaxis, patient on therapeutic Lovenox Inpatient E&M: 93145 Init Hosp L3
[2020-06-12] MEDS: Nitroglycerin Infusion 250 ML 3 MG CONT INF (07:16)
[2020-06-12 07:17] LABS: Probe Check PASS; Specimen Processing Control PASS
[2020-06-12] MEDS: Enoxaparin 100 MG/ML Syringe SC (07:24)
--- NOTE | 2020-06-12 08:42 | EKG12_ITS ---
Test Reason : CP ADMIT Blood Pressure : / mmHG Vent. Rate : 094 BPM Atrial Rate : 094 BPM P-R Int : 178 ms QRS Dur : 146 ms QT Int : 422 ms P-R-T Axes : 064 -01 026 degrees QTc Int : 527 ms Sinus rhythm with occasional Premature ventricular complexes Left bundle branch block Abnormal ECG Confirmed by GUCCI GEE, PAT ([id number]), news editor JAYLIN FRANK ([id number]) on 06/16/2020 10:03:10 AM Referred By: SARAN Confirmed By:PAT DUCKWORTH MD
[2020-06-12 08:59] LABS: AST(SGOT) 29 U/L (15-37); Alanine Aminotransfer ALT/SGPT 36 U/L (13-56); Albumin, Serum 3.3 g/dL (3.2-5.0); Alkaline Phosphatase 75 U/L (45-117); Bilirubin, Direct 0.14 mg/dL (0.00-0.30); Globulin 4.1 g/dL (2.2-4.2); Protein, Total 7.4 g/dL (6.4-8.2)
[2020-06-12] MEDS: Enoxaparin 40 MG/0.4 ML Syringe SC (10:18)
[2020-06-12] MEDS: Sucralfate 1 GM Tablet PO ×3 (10:18→20:54)
[2020-06-12] MEDS: Pantoprazole Sodium 20 MG Tablet PO (10:18)
[2020-06-12] MEDS: Nitroglycerin Oint 1 INCH PACKET TD ×2 (10:18→12:57)
[2020-06-12] MEDS: Insulin Lispro 100 UNIT/ML INSULN.PEN SC ×3 (10:29→20:53)
[2020-06-12 10:40] LABS: Bedside Glucose 205 mg/dL (70-110)
--- NOTE | 2020-06-12 10:41 | PCS.PANDOC ---
PANDEMIC DOCUMENTATION INITIATED: Date: 06/12/2020 Time: 40
--- NOTE | 2020-06-12 11:08 | CASEMGMT ---
According to the [facility] website, the following are in-network tertiary facilities: [facility], [facility], [facility], [facility], [facility], and . Tang KRISHNAN CM
--- NOTE | 2020-06-12 12:53 | CL.D_ITS ---
Patient Name: PITO CLARK Study Date: 06/12/2020 Performing: Cr Ho MD Ht: 64 inches 163 cm : 1970 Wt: 229.6 lbs 104 kg Age: 49 Gender: female BSA: 2.08 PROCEDURE(S) PERFORMED [id number] CLINICAL PROFILE AND INDICATIONS Indications: ACS <= 24 hrs Heart Failure: None Stress/Imaging Stress/Image Study Performed: No CAD Presentations: Unstable angina. CONCLUSIONS Mild to moderate diffuse coronary artery disease especially involving the left anterior descending ar sherice system. RECOMMENDATIONS Medical therapy DESCRIPTION OF PROCEDURE The patient arrived to the procedure lab. The risks and benefits of the procedure as well as a full d escription of our services here and current unavailability of surgical backup were fully explained to the patient and/or their significant other prior to the catheterization. The Timeout was completed, verifying the correct patient and procedure. The patient's procedural site was prepped and draped in the usual fashion. Local anesthetic was given subcutaneously to right radial region with Lidocaine 2% . Using a modified Seldinger technique, arterial access was obtained via the right radial artery, a 6 Fr sheath was inserted. Right Coronary Artery selective angiography was then performed in multiple v iews using a 5 Fr. 4.0 Wilbur catheter. Left Coronary Artery selective angiography was performed in mu ltiple views using a 5 Fr. 4.0 Wilbur catheter. Left Ventriculography was performed in SMALL projection using a 5 Fr. Pigtail catheter. LV to AO pullback pressures were then recorded.The arterial sheath was pulled and a TR Band was applied for hemostasis CORONARY ANGIOGRAPHY DOMINANCE: Right Dominant LEFT HEART ASSESSMENT Left Ventricular Ejection Fraction: by LV Gram 40 % Global Hypokinesis - Mild Depressed Left Ventricular systolic function LEFT MAIN: Angiographically normal LEFT ANTERIOR DESCENDING ARTERY: MID LAD: Moderate luminal irregularities up to 50% CIRCUMFLEX ARTERY: Mild luminal irregularities RIGHT CORONARY ARTERY: Mild luminal irregularities COMPLICATIONS No Complications PROCEDURE MEDICATIONS Versed 1 mg IV Fentanyl 50 mcg IV Versed 1 mg IV Versed 1 mg IV Fentanyl 25 mcg IV Versed 1 mg IV Oxygen: 2 L/min via nasal cannula Heparin given IA 06/12/2020 12:15:49 Verapamil 2.5mg, Ntg 100mcgs, 2000 units of Heparin given IA 06/12/2020 12:15:49 SUMMARY OF HEMODYNAMIC DATA Time AIR REST ECG 11:56:46 AO 121/72 (94) SA 12:18:38 LV 125/4, 8 12:27:09 LV 117/3, 7 12:27:15 LV 142/4, 18 12:29:00 LV 129/5, 9 12:29:06 LVp 130/4, 12 12:29:14 AOp 133/76 (99) 12:29:19 Signed By Cr Ho MD On 06/12/2020 12:53:04 Cr Ho MD
--- NOTE | 2020-06-12 13:39 | CASEMGMT ---
This RN CM to room to complete CM assessment at this time and RN is completing pt care at time. Will attempt again later. SStaten RN CM
--- NOTE | 2020-06-12 14:14 | CASEMGMT ---
RN KVNG JUNIOR ACCOUNT EXECUTIVE CM to room to meet with patient for initial transition planning/care coordination assessment. ARIELLA CALDERON introduced self and role at [facility]. Pt voices understanding and consents to assessment at this time. Pt resting in bed in no distress at this time. Pt is A/O at this time and answers all questions appropriately. Care providers, pharmacy, and demographics verified/updated at this time. PCP:Dr Tautm Specialists: Dr Solano--pain mgmt Pt is diabetic and checks her blood sugars. She states she would like to look into finding some way to check her BS's where it is not so painful to her fingers. She states she has never been to an floor care technician before. Pt provided w/Dr Kent's (floor care technician) rac card. Pt advised to check with her insurance to inquire if a referral is needed. Pt also given Diabetic Clinic Rac card. Preferred Pharmacy: [facility] Insurance: [employer] Prescription Benefit: Yes Living Will/HPOA: States does not have LW or HCPOA . Interested in more information. Provided information on advanced directives and given Social Service rac card. Made aware, if SW unable to meet with her before she is discharged, that she can come back to [facility] and meet with a SW as an outpatient to complete health care advanced directives. Patient expresses understanding. SW, Rose Mary, made aware pt interested in completing AD. Pt states she would like her sig other, Tino, to be her POA. LNOK: Has 7 adult children. Lives w/significant other, Tino. Living Arrangements: Lives w/Tino, her significant other, and his sister in a ground-floor apartment. No steps to enter. Independent w/ADL's and IADL's. Works full-time Transportation: Pt states drives self and states no transportation concerns at this time. Tino will take her home @ d/c. DME: has the following DME: Used to have a CPAP but was unable to tolerate it and does not have it any longer. Has a walker, but does not use it. Has a glucometer. States may be interested in getting a tub bench. Made aware these are not covered by her insurance, but provided list of local DME companies that supply these and also made aware may find them on [employer], [employer], or drug stores. HHC/SNF: History of going to [facility] in 2012 after back surgeries. Also has had [facility] HHC in the past. Denies need for HHC or OP therapy. Pt wishes to return home and states has no concerns with going home at time of discharge. CM to follow for any further discharge planning/needs. Pt voices no further concerns/needs at this time. Advised pt to ask for CM if any further questions/concerns/needs arise. Voices understanding. PLAN: Home w/support of significant other and discharge plans in place. Romain TOBIASN RN CM
--- NOTE | 2020-06-12 14:43 | CASEMGMT ---
VITALY was informed by RN KVNG that patient would like to complete a Healthcare Power of Candy Packer. SW went to patient's room, but she was getting and echo. SW will check back. Rose Mary LYONS MSW
--- NOTE | 2020-06-12 16:14 | CON.PCM_ITS ---
Reason for Consult Date of Consultation: 06/12/20 Reason for Consultation: Chest discomfort History of Present Illness: The patient is a 49 year old F with no previous cardiac history who presented to the emergency room complaining of chest discomfort described as a tightness. She said that this started a few days ago and was getting increasingly worse. There was no activity which would make it better. In the emergency room she was noted to be markedly hypertensive and tachycardic as well as short of breath. Her cardiac enzymes were mildly abnormal EKG demonstrated sinus tachycardia with a left bundle branch block. She was admitted after she had a CT scan of her chest which did not demonstrate any evidence of pulmonary embolism or pneumonia. Mild flight fluid redistribution was noted. This morning she continued to complain of chest discomfort and cardiology was consulted to assess her and assist in treatment. [] Past Medical History Allergies/Adverse Reactions: Allergies amoxicillin trihydrate [From Augmentin] Adverse Reaction (Verified 06/12/20 01:47) Vomiting potassium clavulanate [From Augmentin] Adverse Reaction (Verified 06/12/20 01:47) Vomiting Home Medications: Ambulatory Orders Medication Instructions Recorded traMADol [Ultram (G)] 50 mg PO Q6H PRN PRN 03/22/14 Ondansetron [Zofran Odt] 4 mg PO Q8H PRN PRN #10 tablet 09/30/18 Dicyclomine HCl [Bentyl] 20 mg PO TIDAC PRN 12/01/18 Omeprazole [Prilosec] 20 mg PO DAILY #30 cap 12/01/18 Sucralfate [Carafate] 1 gm PO 4X/DAY #20 tab 01/25/19 Glipizide 10 mg PO BID 10/20/19 Tizanidine HCl 4 mg PO QHS 06/12/20 Past Medical History (Chronic Problems): Chronic Problems History of back surgery (Chronic) Chronic low back pain (Chronic) Type 2 diabetes mellitus (Chronic) Hyperlipidemia (Chronic) Benign hypertension (Chronic) Surgical History: appendectomy, cholecystectomy, hysterectomy, - - Multiple laparoscopies Psychiatric History: 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 Denies: Orthopnea, PND, Peripheral Edema, Palpitations, Lightheadedness, Dizziness, Near Syncope, Syncope Respiratory: Denies: Cough, Sputum Production, Hemoptysis Gastrointestinal: Denies: Hematemesis, Hematochezia, Melena Genitourinary: Denies: Dysuria, Hematuria Skin: Denies: Rash Neurological: Denies: Dizziness Psychiatric: Reports: Anxiety Endocrine: Denies: Excessive Sweating Subjectve: Patient seen and assessed. Appears to be uncomfortable and in pain. Objective: Vital Signs Temp Pulse Resp BP Pulse Ox 98.2 F 97 18 143/65 H 97 06/12/20 16:13 06/12/20 16:13 06/12/20 16:13 06/12/20 16:13 06/12/20 16:13 Oxygen Delivery Method Room Air Weight: 228 lb 13.437 oz Body Mass Index (BMI) 39.2 Intake and Output for Last 24 Hours 06/10/20 06/11/20 06/12/20 23:59 23:59 23:59 Intake Total 319.6 / 319.6 Output Total 800 / 800 Balance -480.4 / -480.4 General: Awake, Alert, Oriented x 3 HEENT: PERRL, EOMI, Sclera Non Icteric Neck: Supple, Good ROM, No Lymph Node Enlargement Lungs: Clear to auscultation Cardiovascular: Regular Rhythm, Normal S1, Normal S2, No Murmurs, No Rubs, No Gallops Vascular: No Carotid Bruits, Normal Femoral Pulses, Normal Radial Pulses, Normal Dorsalis Pedal Pulse, Normal Posterior Tibial Pulses Abdomen: Bowel Sounds Present, Soft, Non Tender, No HSM, No Organomegaly Extremities: No Cyanosis, No Clubbing, No edema Lymphatic: No Lymph Node Enlargement Neurological: No Focal Motor or Sensory Deficit 06/12/20 01:44: WBC 6.6, RBC 4.49, Hgb 13.9, Hct 41.5, MCV 92.4, MCH 31.0, MCHC 33.5, Plt Count 209, MPV 10.2, Immature Gran % (Auto) 0.200, Neut % (Auto) 56.2, Lymph % (Auto) 37.2, [place] % (Auto) 5.0, Eos % (Auto) 1.1, Baso % (Auto) 0.3, Absolute Neuts (auto) 3.7, Nucleated RBC % 0 06/12/20 01:44: Sodium 141, Potassium 3.7, Chloride 111 H, Carbon Dioxide 24.0, Anion Gap 6, BUN 21 H, Creatinine 0.86, Est GFR (MDRD) Af Amer 89, Est GFR (MDRD) Non-Af 74, BUN/Creatinine Ratio 24.3 H, Glucose 181 H, Calcium 8.6, Troponin I 0.023 06/12/20 01:44: Magnesium 2.0, Total Bilirubin 0.40, Direct Bilirubin 0.14, Troponin I 0.023 06/12/20 03:45: Lactic Acid 1.0 06/12/20 03:45: B-Natriuretic Peptide 286.0 H 06/12/20 14:48: Troponin I 0.055 H Rhythm: EKG: Normal sinus rhythm with incomplete left bundle branch block ECHO: Global left ventricular systolic dysfunction estimated ejection fraction of 35% Stress Test: Cardiac Cath: PCI: CT Surgery: Holter monitor: EPS: PPM: CXR: Chest CT Scan: Assessment/Plan 1. Chest pain * The etiology of the above is not entirely clear at this particular time. He does have some features which are suggestive of angina. She had been given aspirin as well as Lovenox. * She underwent a cardiac catheterization today which demonstrated the following: Normal left main coronary artery Left anterior descending artery with moderate 50% mid stenosis Left circumflex artery with no high-grade stenosis Dominant right coronary artery with no high-grade stenosis Left ventricular ejection fraction reduced at 35 to 40% with severe inferior hypokinesis. Based on the above angiographic findings the patient will be treated with aspirin, high intensity statin, and beta-timothy. 2. Left ventricular systolic dysfunction * Patient appears to have left ventricular systolic dysfunction the etiology of which is not clear it may be related to hypertensive heart disease. Would recommend starting with beta-timothy * Consider the addition of MERRILL inhibitor * 3. Mild congestive heart failure * She does have evidence of mild congestive heart failure based on her clinical presentation, natruretic peptide, chest x-ray, and CT scan. * Will institute beta-timothy and MERRILL inhibitor * Will diurese with intravenous Lasix today * Oral Lasix from a.m. * * Thank you for allowing me to participate in the care of your patient. Please don't hesitate to call if any issues arise.
[2020-06-12] MEDS: traMADol 50 MG Tablet PO (17:27)
[2020-06-12 17:40] LABS: Bedside Glucose 218 mg/dL (70-110)
[2020-06-12] MEDS: Lisinopril 10 MG Tablet PO (17:59)
--- NOTE | 2020-06-12 19:24 | PCM.HOSP.N ---
Hospitalist Note Patient was seen and examined briefly today, she underwent a heart catheterization today which showed nonocclusive coronary disease. She had a reduced ejection fraction however and cardiology recommended that she be placed on beta-blockers and an MERRILL inhibitor. She will also be given Lasix for congestive heart failure. Blood pressure at this time remains under better control.
[2020-06-12] MEDS: Acetaminophen 325 MG Tablet 650 MG PO (20:47)
[2020-06-12] MEDS: Atorvastatin Calcium 40 MG Tablet PO (20:54)
[2020-06-12] MEDS: Carvedilol 3.125 MG TABLET PO (20:54)
[2020-06-12] MEDS: tiZANidine HCl 2 MG Tablet 4 MG PO (20:54)
[2020-06-12 21:20] LABS: Bedside Glucose 266 mg/dL (70-110)
[2020-06-13 02:59] VITALS: PULSE 71
[2020-06-13 03:00] VITALS: BP 96/56; PULSE 79; RESP 18; TEMP 36.8; O2SAT 100
[2020-06-13 06:10] LABS: Absolute Lymphocyte Count 2.78 X10^3/uL (0.83-4.51); Absolute Neutrophil Count 2.7 X10^3/uL (2.0-7.7); Basophil# 0.03 X10^3/uL; Basophil% 0.5 % (0-1); Eosinophils% 1.7 % (0-5); Hematocrit 41.5 % (37-47); Hemoglobin 13.8 g/dL (12.0-15.0); Lymphocyte # 2.78 X10^3/ul (4.0); Lymphocyte % 46.3 % (19-41); Mean Corp Hgb Conc 33.3 g/dL (32-36); Mean Corpuscular Volume 93.3 fL (81-99); Mean Platelet Vol. 10.4 fl (6.2-12.0); Monocyte# 0.39 X10^3/uL; Monocyte% 6.5 % (0-10); NRBC Flagged by Analyzer 0 % (0-5); Platelet Count 183 K/mm3 (150-450); RBC Distribution Width CV 13.4 % (11.6-14.6); RBC Distribution Width SD 45.6 fl (35.1-43.9); Red Blood Count 4.45 M/mm3 (4.2-5.4)
[2020-06-13] MEDS: Sucralfate 1 GM Tablet PO ×2 (06:35→10:11)
[2020-06-13] MEDS: Insulin Lispro 100 UNIT/ML INSULN.PEN SC (06:36)
[2020-06-13 06:46] LABS: ALB/GLOB Ratio 0.7 RATIO (0.9-2.4); AST(SGOT) 37 U/L (15-37); Alanine Aminotransfer ALT/SGPT 34 U/L (13-56); Alkaline Phosphatase 70 U/L (45-117); Anion Gap 5 (5-15); BUN 21 mg/dL (7-18); BUN/Creat Ratio 18.1 RATIO (10-20); Calcium,Total 8.5 mg/dL (8.5-10.1); Chloride 106 mmol/L (98-107); Creatinine, Serum 1.16 mg/dL (0.55-1.02); EST Glomerular Filtration Rate 53 mL/min (>60); Est Glom Filt Rate - Afr Amer 64 mL/min (>60); Globulin 4.2 g/dL (2.2-4.2); Glucose 165 mg/dL (74-106); Protein, Total 7.2 g/dL (6.4-8.2); Sodium Level 134 mmol/L (136-145)
[2020-06-13 07:38] VITALS: PULSE 82
[2020-06-13 08:09] VITALS: BP 114/62; PULSE 79; RESP 18; TEMP 36.3; O2SAT 92
[2020-06-13] MEDS: Pantoprazole Sodium 20 MG Tablet PO (08:20)
[2020-06-13] MEDS: Carvedilol 3.125 MG TABLET PO (08:20)
--- NOTE | 2020-06-13 08:20 | PCM.DC ---
- Discharge Diagnoses Current Active Problems: Current Active and Chronic Problems Old non-ST elevation myocardial infarction (NSTEMI) (Acute) Midsternal chest pain (Acute) Dyspnea (Acute) Hyperglycemia due to type 2 diabetes mellitus (Acute) New onset left bundle branch block (LBBB) (Acute) Sinus tachycardia by electrocardiogram (Acute) Bilateral interstitial pneumonia (Acute) Chronic low back pain (Chronic) Type 2 diabetes mellitus (Chronic) Hyperlipidemia (Chronic) Benign hypertension (Chronic) You will use the following diet at home:: Calorie/Carbohydrate Controlled (specify 1200, 1400, etc) - 1800 [place]ynn Your food should be the consistency of: Regular Your liquids should be the consistency of: Regular/Thin Discharge Activity: Return to Normal Activity Return to work on:: 06/14/20 Weight Bearing Status: Full weight bearing Allergies/Adverse Reactions: Allergies amoxicillin trihydrate [From Augmentin] Adverse Reaction (Verified 06/12/20 01:47) Vomiting potassium clavulanate [From Augmentin] Adverse Reaction (Verified 06/12/20 01:47) Vomiting Medications to take at Discharge traMADol [Ultram] 50 mg PO Q6H PRN PRN 03/22/14 Ondansetron [Zofran Odt] 4 mg PO Q8H PRN PRN #10 tablet 09/30/18 Dicyclomine HCl [Bentyl] 20 mg PO TIDAC PRN 12/01/18 Omeprazole [Prilosec] 20 mg PO DAILY #30 cap 12/01/18 Sucralfate [Carafate] 1 gm PO 4X/DAY #20 tab 01/25/19 Glipizide 10 mg PO BID 10/20/19 Tizanidine HCl 4 mg PO QHS 06/12/20 Atorvastatin Calcium [Lipitor] 40 mg PO QHS #30 tab 06/13/20 Carvedilol [Coreg (Beta Renee)] 3.125 mg PO BID #60 tab 06/13/20 Furosemide [Lasix] 40 mg PO DAILY #30 tab 06/13/20 Lisinopril [Zestril] 10 mg PO DAILY #30 tab 06/13/20 Potassium Chloride 20 meq PO DAILY #60 capsule.er 06/13/20 The following prescriptions were given: Carvedilol [Coreg (Beta Renee)] 3.125 mg PO BID #60 tab Transmission Status: Pending to [facility] Furosemide [Lasix] 40 mg PO DAILY #30 tab Transmission Status: Pending to [facility] Atorvastatin Calcium [Lipitor] 40 mg PO QHS #30 tab Transmission Status: Pending to [facility] Potassium Chloride 20 meq PO DAILY #60 capsule.er Transmission Status: Pending to [facility] Lisinopril [Zestril] 10 mg PO DAILY #30 tab Transmission Status: Pending to [facility] Primary Care Physician: Margo Tatum DO [Primary Care Provider] - Please follow up with your Primary Care Physician in: in one week Test Results: Test results from this visit will be discussed in further detail at your follow-up appointment, if applicable. Please Follow Up With: Cr Ho MD When: office will call for appointment
[2020-06-13 08:22] VITALS: BP 130/64; PULSE 72; RESP 18; TEMP 36.9; O2SAT 94
[2020-06-13 08:33] LABS: Bedside Glucose 171 mg/dL (70-110)
--- NOTE | 2020-06-13 09:59 | CASEMGMT ---
SW completed Health Care Power of Police Stenographer and Healthcare Living Will with patient. Copies were made and given to patient along with originals. A copy of each was also placed in patient's chart. Rose Mary HARDING
[2020-06-13] MEDS: Lisinopril 10 MG Tablet PO (10:12)
--- NOTE | 2020-06-13 11:26 | CASEMGMT ---
SW completed a Palliative Care screening tool on patient due to her diagnosis of CHF. She scored a 3 so a referral was not made. Generally when patient's score a 4 or more Palliative Care should be considered. Rose Mary HARDING
--- NOTE | 2020-06-15 10:44 | DS.PCM_ITS ---
Discharge Date and Diagnosis - Problem List Patient Problems: Active and Suspected Problems Old non-ST elevation myocardial infarction (NSTEMI) (Acute) Midsternal chest pain (Acute) Dyspnea (Acute) Hyperglycemia due to type 2 diabetes mellitus (Acute) New onset left bundle branch block (LBBB) (Acute) Sinus tachycardia by electrocardiogram (Acute) Bilateral interstitial pneumonia (Acute) Date of Admission: 06/12/20 Date of Discharge: 06/13/20 - Primary Discharge Diagnosis Acute Problems: Active Problems #1 musculoskeletal chest pain #2 coronary artery disease #3 new onset systolic CHF-EF 35% #4 type 2 diabetes #5 essential hypertension - Secondary Discharge Diagnosis Chronic Problems: Chronic Problems History of back surgery (Chronic) Chronic low back pain (Chronic) Type 2 diabetes mellitus (Chronic) Hyperlipidemia (Chronic) Benign hypertension (Chronic) Hospital Course and Treatment Operations: None Procedures: 2-D Echocardiogram, Cardiac catheterization Summary of Care Provided: The patient is a 49 year old F was seen in the emergency room at [facility] with a chief complaint of intermittent chest discomfort, this was associated with nausea and some shortness of breath. Patient has a history of coronary artery disease. Work-up in the emergency room included an EKG which showed a sinus tachycardia with a left bundle branch block, cardiac enzymes were unremarkable, the left bundle branch block on her EKG had a new finding since last EKG on October 20, 2019. Patient had a rapid Covid test which was negative, she was anticoagulated with Lovenox, and a PCR was obtained to verify that the patient was negative for Covid. Nitroglycerin drip was started in the emergency room, this was not continued at the time of her admission to the floor. Patient was seen by cardiology and she underwent a cardiac catheterization as well as an echocardiogram. Echocardiogram showed reduced ejection fraction of 35%, cardiac catheterization showed no evidence of occlusive coronary disease but the patient did have diffuse coronary artery disease which was felt to be amendable to medication adjustment. On 06/13/2020, patient was seen and examined: On examination she appeared in good health and spirits, she does not appear to be in any distress. Vital signs as documented. Skin warm and dry and without overt rashes. Neck without JVD, thyroid appears normal, trachea is midline, neck is supple. Lungs clear, normal air movement was noted. Heart exam notable for regular rhythm, normal sounds and absence of murmurs, rubs or gallops. Abdomen unremarkable and without evidence of organomegaly, masses, or abdominal aortic enlargement, bowel sounds are present in all 4 quadrants, no abdominal tenderness was noted. Extremities nonedematous, no cyanosis was noted, no clubbing was noted. Neuro: Cranial nerves II through XII are grossly intact, no focal motor deficits were noted, sensation to light touch and pinprick is intact, motor exam 5/5 throughout. Psych: Patient is alert and oriented x3, she does not appear anxious or depressed, she does not appear agitated. On 06/13/2020, patient was seen and examined and felt in stable condition for discharge home Patient Problems: Active and Suspected Problems Old non-ST elevation myocardial infarction (NSTEMI) (Acute) Midsternal chest pain (Acute) Dyspnea (Acute) Hyperglycemia due to type 2 diabetes mellitus (Acute) New onset left bundle branch block (LBBB) (Acute) Sinus tachycardia by electrocardiogram (Acute) Bilateral interstitial pneumonia (Acute) - Physical Exam Vitals/I&O's: Vital Signs Temp Pulse Resp BP Pulse Ox 98.4 F 72 18 130/64 H 94 06/13/20 08:22 06/13/20 08:22 06/13/20 08:22 06/13/20 08:22 06/13/20 08:22 Oxygen Delivery Method Room Air Weight: 104.808 kg Body Mass Index (BMI) 39.2 Intake and Output for Last 24 Hours 06/13/20 06/14/20 06/15/20 23:59 23:59 23:59 Intake Total 300 / 300 Output Total 1000 / 1000 Balance -700 / -700 Microbiology Past 72 Hours 06/12/20 03:45 Blood Culture (Wb) - Anticubital Left Blood Culture - Preliminary No growth in 48 hours. Discharge Activity: Return to Normal Activity Return to work on:: 06/14/20 Weight Bearing Status: Full weight bearing Home Medications: Medications to take at Discharge traMADol [Ultram] 50 mg PO Q6H PRN PRN 03/22/14 Ondansetron [Zofran Odt] 4 mg PO Q8H PRN PRN #10 tablet 09/30/18 Dicyclomine HCl [Bentyl] 20 mg PO TIDAC PRN 12/01/18 Omeprazole [Prilosec] 20 mg PO DAILY #30 cap 12/01/18 Sucralfate [Carafate] 1 gm PO 4X/DAY #20 tab 01/25/19 Glipizide 10 mg PO BID 10/20/19 Tizanidine HCl 4 mg PO QHS 06/12/20 Atorvastatin Calcium [Lipitor] 40 mg PO QHS #30 tab 06/13/20 Carvedilol [Coreg (Beta Renee)] 3.125 mg PO BID #60 tab 06/13/20 Furosemide [Lasix] 40 mg PO DAILY #30 tab 06/13/20 Lisinopril [Zestril] 10 mg PO DAILY #30 tab 06/13/20 Potassium Chloride 20 meq PO DAILY #60 capsule.er 06/13/20 Following Prescriptions Were Given to Patient: Carvedilol [Coreg (Beta Renee)] 3.125 mg PO BID #60 tab Transmission Status: Received by [address] Furosemide [Lasix] 40 mg PO DAILY #30 tab Transmission Status: Received by [address] Atorvastatin Calcium [Lipitor] 40 mg PO QHS #30 tab Transmission Status: Received by [address] Potassium Chloride 20 meq PO DAILY #60 capsule.er Transmission Status: Received by [address] Lisinopril [Zestril] 10 mg PO DAILY #30 tab Transmission Status: Received by [address] Primary Care Physician: Margo Tatum DO [Primary Care Provider] - Please follow up with your Primary Care Physician in: in one week Please Follow Up With: Cr Ho MD When: office will call for appointment Please Follow Up With: Margo Tatum DO Disposition: Home Minutes spent on discharge:: 30 Patient Condition:: Stable Medical Necessity - Tobacco Use Smoking Status: Former smoker Meaningful Use Info Meaningful Use Diagnoses (Choose all that apply): CHF - CHF MERRILL/ARB ordered at discharge?: Yes Documented LVEF (%): 35 Inpatient E&M: 81273 Disch Hosp
== END 2020-06-13 12:29 | disposition home or self-care (01) | DRG 286 ==
LOC: ED 02:09 → PCU 07:47
PROVIDERS: Admitting Provider Internal Medicine; Emergency Provider Emergency Medicine; PCP Family Medicine; Visit Provider Internal Medicine
DX: I25.110 Atherosclerotic heart disease of native coronary artery with unstable angina pectoris (principal); I50.21 Acute systolic (congestive) heart failure; I16.1 Hypertensive emergency; Z68.41 Body mass index [BMI] 40.0-44.9, adult; E11.65 Type 2 diabetes mellitus with hyperglycemia; I11.0 Hypertensive heart disease with heart failure; M54.5 Low back pain; G89.29 Other chronic pain; E78.5 Hyperlipidemia, unspecified; I44.7 Left bundle-branch block, unspecified; I25.2 Old myocardial infarction; E66.01 Morbid (severe) obesity due to excess calories; Z79.84 Long term (current) use of oral hypoglycemic drugs; Z79.899 Other long term (current) drug therapy; Z87.891 Personal history of nicotine dependence
CPT/HCPCS: 36415; 71045; 71275; 80048; 80053; 80076; 82962; 83605; 83735; 83880; 84484; 85025; 87040; 87426; 87635; 93005; 93306; 93458; 99152; 99153; 99251; 99285; J7040; J7050; Q9957; Q9967; A4216; C1769; C1894; G0463; J0696; J1940; U0002

== ENCOUNTER → 2020-07-11 11:49 | Outpatient (CLI) | payer MEDICARE, MEDICAID, SELFPAY ==
[2020-07-11 10:48] VITALS: BMI 39.1
[2020-07-11 13:15] LABS: Anion Gap 5 (5-15); BUN 16 mg/dL (7-18); BUN/Creat Ratio 18.1 RATIO (10-20); Calcium,Total 8.9 mg/dL (8.5-10.1); Chloride 104 mmol/L (98-107); Creatinine, Serum 0.88 mg/dL (0.55-1.02); EST Glomerular Filtration Rate 72 mL/min (>60); Est Glom Filt Rate - Afr Amer 87 mL/min (>60); Glucose 164 mg/dL (74-106); Potassium 3.5 mmol/L (3.5-5.1); Sodium Level 139 mmol/L (136-145)
== END ==
PROVIDERS: PCP Family Medicine; Referring Provider Physician Assistant Medical; Visit Provider Physician Assistant Medical
DX: I42.9 Cardiomyopathy, unspecified (principal)
CPT/HCPCS: 36415; 80048

== ENCOUNTER → 2020-08-25 17:35 | Outpatient (CLI) | payer MEDICARE, MEDICAID, SELFPAY ==
[2020-07-11 10:48] VITALS: BMI 39.1
[2020-08-25 18:08] LABS: Amphetamine Urine VISTA NEGATIVE (<1000 ng/mL); Barbiturate Urine VISTA NEGATIVE (< 200 ng/mL); Benzodiazepine Urine VISTA NEGATIVE (< 200 ng/mL); Cocaine Urine VISTA NEGATIVE (< 300 ng/mL); Ecstacy Urine VISTA NEGATIVE (< 500 ng/mL); Methadone Urine VISTA NEGATIVE (< 300 ng/mL); PCP Urine VISTA NEGATIVE (< 25 ng/mL); THC Urine VISTA NEGATIVE (< 50 ng/mL); Vista UDS pH Range 5
== END ==
PROVIDERS: PCP Family Medicine; Referring Provider Anesthesiology Pain Medicine; Visit Provider Anesthesiology Pain Medicine
DX: F11.20 Opioid dependence, uncomplicated (principal)
CPT/HCPCS: 80307

== ENCOUNTER 2020-12-04 12:51 | Outpatient (RCR) | payer MEDICARE, MEDICAID, SELFPAY ==
[2020-09-16 14:52] VITALS: BMI 38.9
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
--- NOTE | 2020-12-09 07:47 | HP.OTFCE.D ---
FCE D/C Summary - Discharge PITO CLARK was seen for a one time visit for an FCE on 12/04/20 and is discharged.
== END 2020-12-04 19:00 | disposition home or self-care (01) ==
LOC: OT 12:51
PROVIDERS: PCP Family Medicine; Referring Provider Anesthesiology Pain Medicine; Visit Provider Anesthesiology Pain Medicine
DX: M54.9 Dorsalgia, unspecified (principal)
CPT/HCPCS: 97750

== ENCOUNTER 2021-01-17 22:28 | Emergency (ER) | payer MEDICARE, MEDICAID, SELFPAY ==
[2020-09-16 14:52] VITALS: BMI 38.9
[2021-01-17 22:30] VITALS: BP 152/92; PULSE 105; RESP 18; TEMP 36.3; O2SAT 100; BMI 37.8
--- NOTE | 2021-01-17 23:08 | RAD_ITS ---
INDICATION: injury EXAMINATION/TECHNIQUE: X-RAY - RIGHT XR Elbow Min 3 Views COMPARISON: None. FINDINGS: SOFT TISSUES: No soft tissue swelling or gas. No displaced fat pad. BONES/JOINTS: Tiny cortical convexity at the lateral epicondyle potentially associated with common extensor tendon enthesopathy. No acute fracture or subluxation. Normal alignment. Small developing spur anterior process No sclerotic or destructive changes observed. RAD/Elbow min 3 Views IMPRESSION: No evidence of traumatic osseous injury. Tiny bony exostosis suggesting enthesopathy at the common extensor tendon insertion onto the lateral epicondyle. Electronically Signed: Edward Izaguirre DO at 23:44 EDT Tel , Service support ,
--- NOTE | 2021-01-17 23:08 | RAD_ITS ---
INDICATION: injury EXAMINATION/TECHNIQUE: X-RAY - RIGHT XR Humerus Min 2 Views 2 VIEWS COMPARISON: Right elbow x-rays obtained in conjunction with this exam. FINDINGS: SOFT TISSUES: No soft tissue swelling or gas. No radiopaque foreign body. Visualized thorax included in field of view is unremarkable. BONES/JOINTS: No acute fracture or subluxation.. Normal alignment. Preservation of the joint space.. No sclerotic or destructive changes observed. Glenohumeral joint and acromion clavicular joints are normal. RAD/Humerus min 2 Views IMPRESSION: Negative. Electronically Signed: Edward Izaguirre DO at 23:46 EDT Tel , Service support ,
--- NOTE | 2021-01-18 | EX.ED.UPPERE ---
HPI History of Present Illness Chief Complaint: Upper Extremity Injury Informant: patient Narrative Narrative: 50-year-old female states that yesterday she was walking into the eye clinic when she tripped somehow and fell onto her right elbow. She states that she was sore and had some abrasions to the elbow. When she woke this morning she had significant amount of pain in the mid to proximal humerus and inability to fully straighten at the elbow. She states that she tried to work but was unsuccessful. She is concerned she may have a break in her balance [facility] Medical History Benign hypertension Bilateral interstitial pneumonia Cardiomyopathy Chronic low back pain Hyperglycemia due to type 2 diabetes mellitus Hyperlipidemia New onset left bundle branch block (LBBB) Old non-ST elevation myocardial infarction (NSTEMI) Type 2 diabetes mellitus Home Medications omeprazole 20 mg PO DAILY #30 cap 12/01/18 [Rx Last Taken Unknown] tizanidine 4 mg PO QHS 06/12/20 [History Last Taken Unknown] atorvastatin 40 mg tablet 40 mg PO QHS #90 tab 07/11/20 [Rx Last Taken Unknown] furosemide 40 mg tablet 40 mg PO DAILY #90 tab 07/11/20 [Rx Last Taken Unknown] glipizide 10 mg tablet, extended release 24 hr 10 mg PO BID tab 07/11/20 [History Last Taken Unknown] insulin glargine 100 unit/mL (3 mL) subcutaneous pen 40 unit SC QAM ml 07/11/20 [History Last Taken Unknown] lisinopril 10 mg tablet 10 mg PO DAILY #90 tab 07/11/20 [Rx Last Taken Unknown] ondansetron 4 mg disintegrating tablet 4 mg PO Q6H PRN tab 07/11/20 [History Last Taken Unknown] potassium chloride 10 mEq capsule,extended release 20 meq PO DAILY #180 cap 07/11/20 [Rx Last Taken Unknown] sucralfate 1 gram tablet 1 g PO 4X/DAY PRN tab 07/11/20 [History Last Taken Unknown] tramadol 50 mg tablet 50 mg PO TID PRN tab 07/11/20 [History Last Taken Unknown] carvedilol 6.25 mg tablet 6.25 mg PO BID #180 tablet 09/16/20 [Rx Last Taken Unknown] hydrocodone-acetaminophen 1 tab PO Q6H PRN PRN 3 Days #10 tablet 01/18/21 [Rx Last Taken Unknown] Allergy/AdvReac Type Severity Reaction Status Date / Time amoxicillin trihydrate AdvReac Vomiting Verified 01/17/21 22:30 [From Augmentin] potassium clavulanate AdvReac Vomiting Verified 01/17/21 22:30 [From Augmentin] Family History Father Myocardial infarction Cancer prostate, leukemia Agent orange exposure Diabetes Sister Diabetes COPD (chronic obstructive pulmonary disease) Surgical History History of back surgery History of cholecystectomy (~1991) History of hysterectomy History of laparoscopy History of left heart catheterization (06/12/20) History of tonsillectomy Social History Smoking Status: Former smoker how long ago did patient quit smokin alcohol intake: current alcohol intake frequency: holidays/special occasions only substance use type: does not use caffeine: Yes ROS ROS ED Constitutional Constitutional ED: Denies chills or weight loss Eyes Eyes: Denies change in vision or diplopia ENT ENT ED: Denies ear pain, rhinorrhea or sore throat Cardiovascular Cardiovascular: Denies chest pain, orthopnea, palpitations or racing heartbeat Respiratory/Chest Respiratory/Chest: Denies cough, dyspnea or orthopnea Gastrointestinal Gastrointestinal: Denies abdominal pain, diarrhea, nausea or vomiting Genitourinary Genitourinary ED: Denies dysuria, hematuria or urinary frequency Musculoskeletal Musculoskeletal: Reports other Details: See history of present illness ; Denies arthralgias or myalgias Integumentary Reports Abrasions; Denies abscess or rash Neurologic Neurologic: Denies headache(s) or weakness Psychiatric Psychiatric: Denies anxiety, depression, suicidal ideation or suicidal thoughts Endocrine Endocrinology: Denies polydipsia, polyphagia or polyuria Allergic/Immunologic Allergic/Immunologic ED: Denies mouth swelling, tongue swelling or urticaria EXAM Physical Exam Const Vital Signs: 01/17/21 22:30 Temperature 97.3 F L Temperature Source Temporal Pulse Rate 105 H Respiratory Rate 18 Blood Pressure 152/92 H Blood Pressure Mean 112 Pulse Ox 100 Oxygen Delivery Method Room Air Positive well nourished, well developed and obese General Appearance ED: well developed Nutritional Appearance: obese HEENT Reports normocephalic, head/scalp atraumatic and moist mucous membranes Eyes PERRL and EOMs intact bilaterally Neck no lymphadenopathy, supple and no JVD Resp normal respiratory effort and clear to auscultation bilaterally Cardio regular rate, regular rhythm and no murmurs GI normal to inspection, nondistended, normoactive bowel sounds and non-tender Palpation: soft Back/Spine no CVA tenderness and normal ROM Extremity Extremity Narrative: Patient has full pronation supination. She is not able to fully extend at the elbow. She has tenderness to palpation over the mid to proximal humerus. The patient is able to fully flex at the elbow. Limited range of motion at the shoulder due to pain. No tenderness to palpation over the scapula or the clavicle. AC joint appears nontender. General Extremety ED: Negative for edema General Extremity: Negative for edema Neuro oriented x3 and CN's II-XII intact bilaterally Sensorium / Orientation: alert Motor Exam: strength 5/5 throughout Psych mental status grossly normal Mood & Affect: Negative for depressed or tearful Skin no rashes or lesions noted and no wounds Skin Narrative: There are some superficial abrasions to the posterior right elbow Rashes: no rashes MDM MDM MDM Narrative Medical decision making narrative: My interpretation of the plain films of the right humerus and right elbow is no acute fracture. Patient received a dose of oxycodone here. I encouraged her to have some motion of the arm to prevent frozen joints. I can write her for some pain medication would recommend orthopedic follow-up if not improving Radiography Diagnostic Testing: Radiology Impression Elbow X-Ray 01/17/21 23:08 IMPRESSION: No evidence of traumatic osseous injury. Tiny bony exostosis suggesting enthesopathy at the common extensor tendon insertion onto the lateral epicondyle. Electronically Signed: Edward Izaguirre DO at 23:44 EDT Tel , Service support , Humerus X-Ray 01/17/21 23:08 IMPRESSION: Negative. Electronically Signed: Edward Izaguirre DO at 23:46 EDT Tel , Service support , Discharge Plan Triage Chief Complaint: Upper Extremity Injury ED Provider: Alec Leiva Dx/Rx/DC Orders Clinical Impression: Fall, Contusion of elbow, right, Abrasion of elbow, right, Arm pain, right Prescriptions: New hydrocodone-acetaminophen [hydrocodone-acetaminophen] 1 TABLET tablet 1 tab PO Q6H PRN PRN (Reason: Pain) 3 Days Qty: 10 RF: 0 No Action insulin glargine 100 unit/mL (3 mL) insulin pen 40 unit SC QAM RF: 0 ondansetron 4 mg tablet,disintegrating 4 mg PO Q6H PRN (Reason: Nausea) RF: 0 sucralfate 1 gram tablet 1 g PO 4X/DAY PRN (Reason: Constipation) RF: 0 glipizide 10 mg tablet extended release 24hr 10 mg PO BID RF: 0 lisinopril 10 mg tablet 10 mg PO DAILY Qty: 90 RF: 3 furosemide 40 mg tablet 40 mg PO DAILY Qty: 90 RF: 3 potassium chloride 10 mEq capsule, extended release 20 meq PO DAILY Qty: 180 RF: 3 atorvastatin 40 mg tablet 40 mg PO QHS Qty: 90 RF: 3 carvedilol 6.25 mg tablet 6.25 mg PO BID Qty: 180 RF: 3 tramadol 50 mg tablet 50 mg PO TID PRN (Reason: Pain) RF: 0 omeprazole 20 MG capsule 20 mg PO DAILY Qty: 30 RF: 0 tizanidine 4 MG tablet 4 mg PO QHS RF: 0 Primary Care Provider: Margo Tatum Referrals: aMrgo Tatum DO [Primary Care Provider] - Edward Barnhart DO [STAFF PHYSICIAN] - 10-14 Days if not better Disposition Disposition: Home, Self Care
[2021-01-18] MEDS: oxyCODONE 5 MG Tablet 10 MG PO (00:08)
== END 2021-01-18 00:10 | disposition home or self-care (01) ==
PROVIDERS: Emergency Provider Emergency Medicine; PCP Family Medicine
DX: S50.01XA Contusion of right elbow, initial encounter (principal); S50.311A Abrasion of right elbow, initial encounter; W01.0XXA Fall on same level from slipping, tripping and stumbling without subsequent striking against object, initial encounter; Y93.01 Activity, walking, marching and hiking; Y92.531 Health care provider office as the place of occurrence of the external cause; Y99.8 Other external cause status; I10 Essential (primary) hypertension; I25.2 Old myocardial infarction; E11.65 Type 2 diabetes mellitus with hyperglycemia; E78.5 Hyperlipidemia, unspecified; Z79.4 Long term (current) use of insulin; Z79.899 Other long term (current) drug therapy; Z87.891 Personal history of nicotine dependence
CPT/HCPCS: 73060; 73080; 99283

== ENCOUNTER 2021-05-18 18:02 | Inpatient (IN) | payer MEDICARE, MEDICAID, SELFPAY ==
[2021-05-18] VITALS (7 sets, daily range): BP systolic 147–173; BP diastolic 67–108; PULSE 79–105; RESP 17–24; TEMP 36.4–36.8; O2SAT 98–100; BMI 36.8
--- NOTE | 2021-05-18 18:05 | RAD_ITS ---
EXAM: XR Chest, 1 View CLINICAL INDICATION: 50 years old, Female; chest pain TECHNIQUE: Frontal view of the chest. This report was created using [employer] report generation technology. COMPARISON: XR Chest dated 06/12/2020 FINDINGS: Lungs and pleural spaces: Atelectasis in the lung bases. No pneumothorax. No effusion. Heart: Unremarkable. Cardiac silhouette not enlarged. Mediastinum: Central airways and mediastinal contour are unremarkable. Bones/joints: Unremarkable. Soft tissues: Unremarkable. Tubes, lines and devices: Spinal stimulator. RAD/Chest 1 View (Portable) IMPRESSION: No acute findings in the chest. Electronically Signed: Kirk James MD at 21:54 EST Tel , Service support ,
--- NOTE | 2021-05-18 18:05 | EKG12_ITS ---
Test Reason : CP Blood Pressure : / mmHG Vent. Rate : 085 BPM Atrial Rate : 085 BPM P-R Int : 188 ms QRS Dur : 158 ms QT Int : 428 ms P-R-T Axes : 022 -07 047 degrees QTc Int : 509 ms Sinus rhythm with Premature atrial complexes Left bundle branch block Abnormal ECG Confirmed by GUCCI GEE, PAT ([id number]), allocation analyst JAYLIN FRANK ([id number]) on 05/20/2021 12:12:04 PM Referred By: VONDA Confirmed By:PAT DUCKWORTH MD
[2021-05-18 18:21] LABS: Absolute Lymphocyte Count 2.34 X10^3/uL (0.83-4.51); Basophil# 0.02 X10^3/uL; Basophil% 0.3 % (0-1); Eosinophil# 0.05 X10^3/uL; Eosinophils% 0.9 % (0-5); Hematocrit 38.2 % (37-47); Hemoglobin 12.8 g/dL (12.0-15.0); Lymphocyte # 2.34 X10^3/ul (0.83-4.51); Lymphocyte % 40.2 % (19-41); Mean Corp Hgb Conc 33.5 g/dL (32-36); Mean Corpuscular Volume 92.5 fL (81-99); Mean Platelet Vol. 10.5 fl (6.2-12.0); Monocyte# 0.37 X10^3/uL; Monocyte% 6.4 % (0-10); NRBC Flagged by Analyzer 0 % (0-5); Neutrophil # 3.03 X10^3/uL (2.7-7.7); Platelet Count 198 K/mm3 (150-450); RBC Distribution Width CV 13.7 % (11.6-14.6); RBC Distribution Width SD 46.1 fl (35.1-43.9); Red Blood Count 4.13 M/mm3 (4.2-5.4); White Blood Count 5.8 K/mm3 (4.4-11.0)
[2021-05-18 18:39] LABS: Anion Gap 4 (5-15); BUN 23 mg/dL (7-18); BUN/Creat Ratio 25.2 RATIO (10-20); Calcium,Total 9.6 mg/dL (8.5-10.1); Chloride 108 mmol/L (98-107); Creatinine, Serum 0.91 mg/dL (0.55-1.02); EST Glomerular Filtration Rate 69 mL/min (>60); Est Glom Filt Rate - Afr Amer 83 mL/min (>60); Estimated Creatinine Clearance 63.16 ml/min; Glucose 248 mg/dL (74-106); Sodium Level 139 mmol/L (136-145); Troponin-I HS 470 pg/mL (3.0-54.0)
--- NOTE | 2021-05-18 19:14 | EDS_ITS ---
HPI History of Present Illness Chief Complaint: Chest Pain Informant: patient Narrative Narrative: Patient presents with anterior chest pain that started about 430 this afternoon. It did not get worse until probably an hour or so later. She describes it as sharp. However it aches over in her right shoulder more than her left. She did have dyspnea with this. No diaphoresis. Mild nausea may be but not now. This reminds her of when she was admitted in June with a non-ST segment elevation ME. She states they did a heart catheterization. They saw a 50% lesion but no stents were required. However, after that she was placed on multiple medications including for blood pressure cholesterol. She is already on meds for diabetes. She was also placed on Lasix at 40 a day. She has been taking all of these. She is not on Plavix or aspirin. She states aspirin causes nausea for her and that is why she has not taken it. She does not have an actual allergy but does have the intolerance. Nothing really makes her symptoms better or worse. At this time they are not present but they have been waxing and waning. During my stay in the room, she did start to get symptoms a little bit again. [facility] Medical History (Updated 05/23/21 @ 12:[address] Gustavo Leslie MD) Atherosclerotic heart disease of [place] coronary artery without angina pectoris Benign hypertension Bilateral interstitial pneumonia Cardiomyopathy, ischemic Chronic low back pain HFrEF (heart failure with reduced ejection fraction) History of non-ST elevation myocardial infarction (NSTEMI) (06/12/20) Hyperglycemia due to type 2 diabetes mellitus Hyperlipidemia Left bundle branch block (LBBB) Non-ischemic cardiomyopathy Nonobstructive atherosclerosis of coronary artery Obesity Status post insertion of nerve stimulator Type 2 diabetes mellitus Home Medications omeprazole 20 mg PO DAILY #30 cap 12/01/18 [Rx Last Taken Unknown] tizanidine 4 mg PO QHS 06/12/20 [History Last Taken Unknown] furosemide 40 mg tablet 40 mg PO DAILY #90 tab 07/11/20 [Rx Last Taken Unknown] glipizide 10 mg tablet, extended release 24 hr 10 mg PO BID tab 07/11/20 [ History Last Taken Unknown] ondansetron 4 mg disintegrating tablet 4 mg PO Q6H PRN tab 07/11/20 [History Last Taken Unknown] sucralfate 1 gram tablet 1 g PO 4X/DAY PRN tab 07/11/20 [History Last Taken Unknown] tramadol 50 mg tablet 50 mg PO TID PRN tab 07/11/20 [History Last Taken Unknown] carvedilol 12.5 mg tablet 6.25 mg PO BID #120 tab 03/31/21 [Rx Last Taken Unknown] lisinopril 20 mg tablet 20 mg PO DAILY #90 tab 03/31/21 [Rx Last Taken Unknown] aspirin 81 mg PO DAILY #60 cap 05/20/21 [Rx Last Taken Unknown] atorvastatin 80 mg PO QHS #60 tab 05/20/21 [Rx Last Taken Unknown] dapagliflozin 5 mg PO DAILY #60 tab 05/20/21 [Rx Last Taken Unknown] ticagrelor [Brilinta] 90 mg PO BID #180 tab 05/20/21 [Rx Last Taken Unknown] Allergy/AdvReac Type Severity Reaction Status Date / Time amoxicillin trihydrate AdvReac Vomiting Verified 05/18/21 18:05 [From Augmentin] potassium clavulanate AdvReac Vomiting Verified 05/18/21 18:05 [From Augmentin] Family History Father Myocardial infarction Cancer prostate, leukemia Agent orange exposure Diabetes Sister Diabetes COPD (chronic obstructive pulmonary disease) Surgical History History of back surgery History of cholecystectomy (1991) History of coronary artery stent placement History of hysterectomy History of laparoscopy History of left heart catheterization (06/12/20) History of tonsillectomy Presence of coronary angioplasty implant and graft (~05/19/21) Social History Smoking Status: Former smoker how long ago did patient quit smokin alcohol intake: current alcohol intake frequency: holidays/special occasions only substance use type: does not use caffeine: Yes ROS ROS ED Constitutional Constitutional ED: Denies chills or fever(s) Eyes Eyes: Denies blurry vision or change in vision ENT ENT ED: Denies rhinorrhea or sore throat Cardiovascular Cardiovascular: Reports as per HPI and chest pain; Denies palpitations Respiratory/Chest Respiratory/Chest: Reports dyspnea; Denies cough Gastrointestinal Gastrointestinal: Reports nausea; Denies abdominal pain, diarrhea or vomiting Musculoskeletal Musculoskeletal: Denies arthralgias or neck pain Integumentary Denies rash Neurologic Neurologic: Denies headache(s), paresthesias or weakness Endocrine Endocrinology: Reports other Details: No polyuria polydipsia but she does urinate quite a bit after her Lasix. ; Denies polydipsia or polyuria Hematologic/Lymphatic Hematologic/Lymphatic: Denies easy bleeding or easy bruising Allergic/Immunologic Allergic/Immunologic ED: Denies mouth swelling or urticaria EXAM Physical Exam Const Vital Signs: 05/18/21 18:05 05/18/21 19:31 05/18/21 19:37 Temperature 98.2 F Temperature Source Temporal Pulse Rate 94 102 H 105 H Respiratory Rate 18 Blood Pressure 172/92 H 173/108 H 173/108 H Blood Pressure Mean 118 Pulse Ox 98 Oxygen Delivery Method Room Air 05/18/21 19:45 05/18/21 19:46 05/18/21 20:01 Temperature Temperature Source Pulse Rate 85 79 81 Respiratory Rate 21 H Blood Pressure 157/100 H 157/100 H 147/83 H Blood Pressure Mean 104 Pulse Ox 99 Oxygen Delivery Method Room Air Positive well nourished and well developed General Appearance ED: well developed and NAD HEENT Reports moist mucous membranes Eyes General Eye ED: Negative for pale conjunctiva Neck no JVD Chest Wall inspection of chest normal Resp normal respiratory effort Resp Narrative: No pain deep breaths. Effort and Inspection: Negative for respiratory distress Auscultation: Negative for rales, rhonchi or wheezes Cardio regular rate and regular rhythm GI normal to inspection, nondistended, normoactive bowel sounds and non-tender Extremity normal to inspection Extremity Narrative: Peripheral pulses are equal General Extremety ED: Negative for edema or tenderness General Extremity: Negative for edema Neuro Sensorium / Orientation: awake and alert Psych mental status grossly normal Skin no rashes or lesions noted and no wounds Skin Narrative: No diaphoresis. MDM MDM MDM Narrative Medical decision making narrative: Patient CBC shows no marked abnormalities. Electrolytes are overall relatively normal. She does have slight elevation of glucose at 248 also, her troponin is high at 470. Since the pain started come back I have ordered a repeat EKG but do not have that yet. I am also waiting on her chest x-ray. However she does not sound to be in failure and her oxygen level is normal. She does not present consistent with PE or dissection. We will start her on nitro at this time. Have given her aspirin. Hospitalist is seeing her. Lab Data Attestation: I reviewed the patient's lab results. Labs: Laboratory Results - last 24 hr 05/18/21 05/18/21 05/18/21 18:10 18:10 18:10 WBC 5.8 RBC 4.13 L Hgb 12.8 Hct 38.2 MCV 92.5 MCH 31.0 MCHC 33.5 RDW Std Deviation 46.1 H RDW Coeff of Tomi 13.7 Plt Count 198 MPV 10.5 Immature Gran % (Auto) 0.200 Neut % (Auto) 52.0 Lymph % (Auto) 40.2 [place] % (Auto) 6.4 Eos % (Auto) 0.9 Baso % (Auto) 0.3 Absolute Neuts (auto) 3.0 Absolute Lymphs (auto) 2.34 Nucleated RBC % 0 PT INR APTT Sodium 139 Potassium 4.0 Chloride 108 H Carbon Dioxide 27.0 Anion Gap 4 L BUN 23 H Creatinine 0.91 Estim Creat Clear Calc 63.16 Est GFR (MDRD) Af Amer 83 Est GFR (MDRD) Non-Af 69 BUN/Creatinine Ratio 25.2 H Glucose 248 H Calcium 9.6 Troponin I High Sens 470 H* B-Natriuretic Peptide 221.5 H 05/18/21 19:45 WBC RBC Hgb Hct MCV MCH MCHC RDW Std Deviation RDW Coeff of Tomi Plt Count MPV Immature Gran % (Auto) Neut % (Auto) Lymph % (Auto) [place] % (Auto) Eos % (Auto) Baso % (Auto) Absolute Neuts (auto) Absolute Lymphs (auto) Nucleated RBC % PT 12.9 INR 1.0 APTT 27.2 Sodium Potassium Chloride Carbon Dioxide Anion Gap BUN Creatinine Estim Creat Clear Calc Est GFR (MDRD) Af Amer Est GFR (MDRD) Non-Af BUN/Creatinine Ratio Glucose Calcium Troponin I High Sens B-Natriuretic Peptide Radiography Diagnostic Testing: Clinical Impression(s) from Imaging Studies Chest X-Ray 05/18/21 18:05 IMPRESSION: No acute findings in the chest. Electronically Signed: Kirk James MD at 21:54 EST Tel , Service support , EKG Initial EKG: Comments: EKG done for chest pain read by showed sinus rhythm with occasional PAC. Overall rate of 85. She does have left bundle branch block which is not new. No finding consistent with Sgarbosa criteria for STEMI. [place] interval is normal. QRS duration and QTc are long. Discharge Plan Dx/Rx/DC Orders Clinical Impression: Non-ST elevation [place] (NSTEMI) Disposition Disposition: Acute Care Hospital [facility] Discharge Date/Time: 05/19/21 00:17
[2021-05-18] MEDS: Ondansetron 4 MG/2 ML Vial IV (19:31)
[2021-05-18] MEDS: Nitroglycerin SL (ED/IMG/CATH) 0.4 MG TABLET SL ×3 (19:31→19:45)
[2021-05-18] MEDS: Aspirin 81 MG TAB.CHEW 324 MG PO (19:31)
[2021-05-18 19:33] LABS: BNP,B-Type NATRIURETIC PEPTIDE 221.5 pg/mL (0-100)
[2021-05-18] MEDS: Morphine 4 MG/ML Syringe IV ×2 (19:34→22:16)
--- NOTE | 2021-05-18 19:45 | EKG12_ITS ---
Test Reason : REPEAT Blood Pressure : / mmHG Vent. Rate : 096 BPM Atrial Rate : 096 BPM P-R Int : 166 ms QRS Dur : 156 ms QT Int : 412 ms P-R-T Axes : 061 -19 044 degrees QTc Int : 520 ms Normal sinus rhythm Left bundle branch block Abnormal ECG Confirmed by GUCCI GEE, PAT ([id number]), visual effects editor JAYLIN FRANK ([id number]) on 05/20/2021 12:12:19 PM Referred By: TOM Confirmed By:PAT DUCKWORTH MD
--- NOTE | 2021-05-18 19:45 | HP.PCM_ITS ---
HPI - General HPI Narrative PITO CLARK, is a 50 F who presents [facility] Medical History Benign hypertension Bilateral interstitial pneumonia Chronic low back pain HFrEF (heart failure with reduced ejection fraction) History of non-ST elevation myocardial infarction (NSTEMI) (06/12/20) Hyperglycemia due to type 2 diabetes mellitus Hyperlipidemia Left bundle branch block (LBBB) Non-ischemic cardiomyopathy Nonobstructive atherosclerosis of coronary artery Obesity Type 2 diabetes mellitus Home Medications omeprazole 20 mg PO DAILY #30 cap 12/01/18 [Rx Last Taken Unknown] tizanidine 4 mg PO QHS 06/12/20 [History Last Taken Unknown] atorvastatin 40 mg tablet 40 mg PO QHS #90 tab 07/11/20 [Rx Last Taken Unknown] furosemide 40 mg tablet 40 mg PO DAILY #90 tab 07/11/20 [Rx Last Taken Unknown] glipizide 10 mg tablet, extended release 24 hr 10 mg PO BID tab 07/11/20 [History Last Taken Unknown] insulin glargine 100 unit/mL (3 mL) subcutaneous pen 40 unit SC QAM ml 07/11/20 [History Last Taken Unknown] ondansetron 4 mg disintegrating tablet 4 mg PO Q6H PRN tab 07/11/20 [History Last Taken Unknown] sucralfate 1 gram tablet 1 g PO 4X/DAY PRN tab 07/11/20 [History Last Taken Unknown] tramadol 50 mg tablet 50 mg PO TID PRN tab 07/11/20 [History Last Taken Unknown] carvedilol 12.5 mg tablet 6.25 mg PO BID #120 tab 03/31/21 [Rx Last Taken Unknown] lisinopril 20 mg tablet 20 mg PO DAILY #90 tab 03/31/21 [Rx Last Taken Unknown] Allergy/AdvReac Type Severity Reaction Status Date / Time amoxicillin trihydrate AdvReac Vomiting Verified 05/18/21 18:05 [From Augmentin] potassium clavulanate AdvReac Vomiting Verified 05/18/21 18:05 [From Augmentin] Family History Father Myocardial infarction Cancer prostate, leukemia Agent orange exposure Diabetes Sister Diabetes COPD (chronic obstructive pulmonary disease) Surgical History History of back surgery History of cholecystectomy (1991) History of hysterectomy History of laparoscopy History of left heart catheterization (06/12/20) History of tonsillectomy Social History Smoking Status: Former smoker how long ago did patient quit smokin alcohol intake: current alcohol intake frequency: holidays/special occasions only substance use type: does not use caffeine: Yes Vital Signs Vital Signs Vital Signs: 05/18/21 18:05 05/18/21 19:31 05/18/21 19:37 Temperature 98.2 F Temperature Source Temporal Pulse Rate 94 102 H 105 H Respiratory Rate 18 Blood Pressure 172/92 H 173/108 H 173/108 H Blood Pressure Mean 118 Pulse Ox 98 Oxygen Delivery Method Room Air Weight Weight: 215 lb Body Mass Index (BMI) 36.8 Results Lab / Micro Data Result Diagrams: 05/18/21 18:10 05/18/21 18:10 Labs: Laboratory Results - last 24 hr 05/18/21 18:10: WBC 5.8, RBC 4.13 L, Hgb 12.8, Hct 38.2, MCV 92.5, MCH 31.0, MCHC 33.5, RDW Std Deviation 46.1 H, RDW Coeff of Tomi 13.7, Plt Count 198, MPV 10.5, Immature Gran % (Auto) 0.200, Neut % (Auto) 52.0, Lymph % (Auto) 40.2, [place] % (Auto) 6.4, Eos % (Auto) 0.9, Baso % (Auto) 0.3, Absolute Neuts (auto) 3.0, Absolute Lymphs (auto) 2.34, Nucleated RBC % 0 05/18/21 18:10: Sodium 139, Potassium 4.0, Chloride 108 H, Carbon Dioxide 27.0, Anion Gap 4 L, BUN 23 H, Creatinine 0.91, Estim Creat Clear Calc 63.16, Est GFR (MDRD) Af Amer 83, Est GFR (MDRD) Non-Af 69, BUN/Creatinine Ratio 25.2 H, Glucose 248 H, Calcium 9.6, Troponin I High Sens 470 H* 05/18/21 18:10: B-Natriuretic Peptide 221.5 H
[2021-05-18] MEDS: Nitroglycerin Oint 1 INCH PACKET TRANSDERM. (19:46)
--- NOTE | 2021-05-18 19:47 | PCM.HP.STD ---
HPI - General HPI Narrative PITO CLARK, is a 50 F who presents to the emergency room with acute onset of chest pain. Onset of this pain began at 530 this evening while at rest. Patient has a significant past medical history of coronary artery disease diagnosed with a heart catheterization in March with 50% blockage of her LAD. The pain radiates to both shoulders and is a sharp stabbing pain. Patient has a past medical history of hypertension, diabetes, hyperlipidemia and obesity. She will be admitted to progressive care unit and set up for heart catheterization in the morning. [facility] Medical History Benign hypertension Bilateral interstitial pneumonia Chronic low back pain HFrEF (heart failure with reduced ejection fraction) History of non-ST elevation myocardial infarction (NSTEMI) (06/12/20) Hyperglycemia due to type 2 diabetes mellitus Hyperlipidemia Left bundle branch block (LBBB) Non-ischemic cardiomyopathy Nonobstructive atherosclerosis of coronary artery Obesity Type 2 diabetes mellitus Home Medications omeprazole 20 mg PO DAILY #30 cap 12/01/18 [Rx Last Taken Unknown] tizanidine 4 mg PO QHS 06/12/20 [History Last Taken Unknown] atorvastatin 40 mg tablet 40 mg PO QHS #90 tab 07/11/20 [Rx Last Taken Unknown] furosemide 40 mg tablet 40 mg PO DAILY #90 tab 07/11/20 [Rx Last Taken Unknown] glipizide 10 mg tablet, extended release 24 hr 10 mg PO BID tab 07/11/20 [History Last Taken Unknown] insulin glargine 100 unit/mL (3 mL) subcutaneous pen 40 unit SC QAM ml 07/11/20 [History Last Taken Unknown] ondansetron 4 mg disintegrating tablet 4 mg PO Q6H PRN tab 07/11/20 [History Last Taken Unknown] sucralfate 1 gram tablet 1 g PO 4X/DAY PRN tab 07/11/20 [History Last Taken Unknown] tramadol 50 mg tablet 50 mg PO TID PRN tab 07/11/20 [History Last Taken Unknown] carvedilol 12.5 mg tablet 6.25 mg PO BID #120 tab 03/31/21 [Rx Last Taken Unknown] lisinopril 20 mg tablet 20 mg PO DAILY #90 tab 03/31/21 [Rx Last Taken Unknown] Allergy/AdvReac Type Severity Reaction Status Date / Time amoxicillin trihydrate AdvReac Vomiting Verified 05/18/21 18:05 [From Augmentin] potassium clavulanate AdvReac Vomiting Verified 05/18/21 18:05 [From Augmentin] Family History Father Myocardial infarction Cancer prostate, leukemia Agent orange exposure Diabetes Sister Diabetes COPD (chronic obstructive pulmonary disease) Surgical History History of back surgery History of cholecystectomy (1991) History of hysterectomy History of laparoscopy History of left heart catheterization (06/12/20) History of tonsillectomy Social History Smoking Status: Former smoker how long ago did patient quit smokin alcohol intake: current alcohol intake frequency: holidays/special occasions only substance use type: does not use caffeine: Yes ROS Constitutional Constitutional: Denies chills, fatigue or fever(s) ENT HEENT: Denies abnormal hearing Cardiovascular Cardiovascular: Reports chest pain Respiratory/Chest Respiratory/Chest: Denies cough or shortness of breath at rest Gastrointestinal Gastrointestinal: Denies abdominal pain Genitourinary Genitourinary: Denies dysuria Musculoskeletal Musculoskeletal: Denies back pain Integumentary Integumentary: Denies dry skin Neurologic Neurologic: Denies abnormal gait Psychiatric Psychiatric: Reports anxiety Vital Signs Vital Signs Vital Signs: 05/18/21 18:05 05/18/21 19:31 05/18/21 19:37 Temperature 98.2 F Temperature Source Temporal Pulse Rate 94 102 H 105 H Respiratory Rate 18 Blood Pressure 172/92 H 173/108 H 173/108 H Blood Pressure Mean 118 Pulse Ox 98 Oxygen Delivery Method Room Air 05/18/21 19:45 Temperature Temperature Source Pulse Rate 85 Respiratory Rate Blood Pressure 157/100 H Blood Pressure Mean Pulse Ox Oxygen Delivery Method Weight Weight: 215 lb Body Mass Index (BMI) 36.8 Physical Exam Const oriented x3 Constitutional Narrative: in significant pain General Appearance: cooperative HEENT normocephalic and head/scalp atraumatic Eyes PERRL Neck supple Lymph Lymphatic: no lymphadenopathy noted Resp normal respiratory effort and clear to auscultation bilaterally Cardio regular rhythm, S1 normal heart sound and S2 normal heart sound Rate: tachycardic GI normal to inspection, nondistended, normoactive bowel sounds Extremity no clubbing, cyanosis or edema Skin Rashes: no rashes Neuro CN's II-XII intact bilaterally Psych affect normal Appearance: appropriate Results Lab / Micro Data Result Diagrams: 05/18/21 18:10 05/18/21 18:10 Labs: Laboratory Results - last 24 hr 05/18/21 18:10: WBC 5.8, RBC 4.13 L, Hgb 12.8, Hct 38.2, MCV 92.5, MCH 31.0, MCHC 33.5, RDW Std Deviation 46.1 H, RDW Coeff of Tomi 13.7, Plt Count 198, MPV 10.5, Immature Gran % (Auto) 0.200, Neut % (Auto) 52.0, Lymph % (Auto) 40.2, [place] % (Auto) 6.4, Eos % (Auto) 0.9, Baso % (Auto) 0.3, Absolute Neuts (auto) 3.0, Absolute Lymphs (auto) 2.34, Nucleated RBC % 0 05/18/21 18:10: Sodium 139, Potassium 4.0, Chloride 108 H, Carbon Dioxide 27.0, Anion Gap 4 L, BUN 23 H, Creatinine 0.91, Estim Creat Clear Calc 63.16, Est GFR (MDRD) Af Amer 83, Est GFR (MDRD) Non-Af 69, BUN/Creatinine Ratio 25.2 H, Glucose 248 H, Calcium 9.6, Troponin I High Sens 470 H* 05/18/21 18:10: B-Natriuretic Peptide 221.5 H Assessment & Plan Assessment/Plan (1) Non-ST elevation [place] (NSTEMI): (2) Non-ischemic cardiomyopathy: (3) HFrEF (heart failure with reduced ejection fraction): (4) Left bundle branch block (LBBB): (5) Benign hypertension: (6) Hyperlipidemia: (7) Type 2 diabetes mellitus: (8) Obesity: (9) Nonobstructive atherosclerosis of coronary artery: PLAN: 1 acute non-ST elevation [place]?admit patient to progressive care unit, morphine 4 mg IV every 2 hours as needed pain, nitroglycerin per protocol with Nitropaste 1/2 inch every 6 hours, aspirin 325 p.o. daily, heparin drip by weight protocol, consult cardiology, make patient n.p.o. pending cardiac catheterization protocol in the morning 2. Hypertension we will continue to monitor as this may change due to her nitroglycerin and morphine as above 3. Diabetes we will continue home oral medications until she is n.p.o. at which time she may be switched to sliding scale insulin 4. Hyperlipidemia?continue statin medication per routine 5. DVT prophylaxis?patient is already anticoagulated on heparin Charges/Coding Visit Charges Inpatient E&M: 28359 Init Hosp L3
[2021-05-18] MEDS: Heparin Injection (Vial) 5,000 UNIT/ML VIAL 7500 UNIT IV (19:51)
[2021-05-18] MEDS: HEPARIN/D5w 25,000 UNITS 25,000 UNITS/250 ML IV.SOLN. 14 UNITS IV (19:52)
[2021-05-18 20:02] LABS: Partial Thromboplast Time 27.2 Seconds (24.1-36.2); Prothrombin Time (Protime)PT. 12.9 SECONDS (11.7-14.9)
[2021-05-18] MEDS: Mag Hydrox/Al Hydrox/Simeth 30 ML UDC PO (20:17)
--- NOTE | 2021-05-18 22:04 | EKG12_ITS ---
Test Reason : REPEAT Blood Pressure : / mmHG Vent. Rate : 077 BPM Atrial Rate : 077 BPM P-R Int : 186 ms QRS Dur : 160 ms QT Int : 442 ms P-R-T Axes : 036 -26 017 degrees QTc Int : 500 ms Normal sinus rhythm Left bundle branch block Abnormal ECG Confirmed by GUCCI GEE, PAT ([id number]), newspaper editor managing JAYLIN FRANK ([id number]) on 05/20/2021 12:14:45 PM Referred By: ROLF Confirmed By:PAT DUCKWORTH MD
[2021-05-19] VITALS (11 sets, daily range): BP systolic 106–146; BP diastolic 55–69; PULSE 77–95; RESP 12–26; TEMP 36.6–36.8; O2SAT 96–100; BMI 36.8
--- NOTE | 2021-05-19 00:52 | ED.RN ---
PT'S PRIMARY VISITOR WILL BE DANI LOPEZ
[2021-05-19] MEDS: glipiZIDE XL 5 MG Tablet 10 MG PO ×3 (01:22→17:30)
[2021-05-19] MEDS: Carvedilol 6.25 MG Tablet PO ×3 (01:22→22:55)
[2021-05-19] MEDS: Atorvastatin Calcium 40 MG Tablet PO (01:23)
[2021-05-19 01:27] LABS: Troponin-I HS 860 pg/mL (3.0-54.0)
--- NOTE | 2021-05-19 03:02 | PCS.PANDOC ---
PANDEMIC DOCUMENTATION INITIATED: Date: 05/19/21 Time: 001
--- NOTE | 2021-05-19 03:03 | PCS.PANDOC ---
PANDEMIC DOCUMENTATION INITIATED: Date: 05/19/2021 Time: 28
[2021-05-19 04:31] LABS: Absolute Lymphocyte Count 2.94 X10^3/uL (0.83-4.51); Absolute Neutrophil Count 1.8 X10^3/uL (2.0-7.7); Basophil# 0.02 X10^3/uL; Basophil% 0.4 % (0-1); Eosinophil# 0.05 X10^3/uL; Hematocrit 37.5 % (37-47); Hemoglobin 12.8 g/dL (12.0-15.0); Lymphocyte # 2.94 X10^3/ul (0.83-4.51); Lymphocyte % 56.9 % (19-41); Mean Corp Hgb Conc 34.1 g/dL (32-36); Mean Corpuscular Hgb 31.7 pg (27.0-32.0); Mean Corpuscular Volume 92.8 fL (81-99); Mean Platelet Vol. 10.6 fl (6.2-12.0); Monocyte# 0.33 X10^3/uL; Monocyte% 6.4 % (0-10); NRBC Flagged by Analyzer 0 % (0-5); Neutrophil # 1.82 X10^3/uL (2.7-7.7); Neutrophil % 35.1 % (47-70); Platelet Count 178 K/mm3 (150-450); RBC Distribution Width CV 13.6 % (11.6-14.6); RBC Distribution Width SD 46.6 fl (35.1-43.9); Red Blood Count 4.04 M/mm3 (4.2-5.4); White Blood Count 5.2 K/mm3 (4.4-11.0)
[2021-05-19 04:50] LABS: Partial Thromboplast Time 133.7 Seconds (24.1-36.2)
[2021-05-19 05:02] LABS: Troponin-I HS 759 pg/mL (3.0-54.0)
[2021-05-19] MEDS: Nitroglycerin (INPATIENT USE) 0.4 MG TAB.SUBL SL ×3 (05:25→05:59)
[2021-05-19] MEDS: Morphine 4 MG/ML Syringe IV (06:23)
[2021-05-19] MEDS: 0.9% Saline Lock 10 ML Syringe IV (06:24)
[2021-05-19 06:44] LABS: Anion Gap 4 (5-15); BUN 16 mg/dL (7-18); BUN/Creat Ratio 19.2 RATIO (10-20); Calcium,Total 9.1 mg/dL (8.5-10.1); Chloride 111 mmol/L (98-107); Creatinine, Serum 0.83 mg/dL (0.55-1.02); EST Glomerular Filtration Rate 77 mL/min (>60); Est Glom Filt Rate - Afr Amer 93 mL/min (>60); Estimated Creatinine Clearance 69.24 ml/min; Glucose 165 mg/dL (74-106); Magnesium 2.1 mg/dL (1.6-2.6); Potassium 3.9 mmol/L (3.5-5.1); Sodium Level 142 mmol/L (136-145); Troponin-I HS 669 pg/mL (3.0-54.0)
--- NOTE | 2021-05-19 07:21 | CON.PCM.CA_ITS ---
Assessment & Plan Assessment/Plan (1) Non-ST elevation NH (NSTEMI): PLAN: Patient has a history of non-ST elevation myocardial infarction and presents with the same. At this point in time with her continued waxing and waning chest discomfort I would recommend that we repeat her cardiac catheterization. The risk benefits and alternatives have been explained to her she understands and agrees to proceed. Addendum: Cardiac catheterization demonstrated the following: Normal left main coronary artery. Left anterior descending artery with mid segment 95% stenosis. Left circumflex artery with mild disease. Right coronary artery with mild disease. Based on the above angiographic findings the patient would be recommended to undergo PCI. (2) Non-ischemic cardiomyopathy: PLAN: She does have a history of nonischemic cardiomyopathy with an estimated ejection fraction of 35 to 40%. * I would recommend continuing the beta-timothy * Continue the MERRILL inhibitor * Consider SGLT2 inhibitor (3) Left bundle branch block (LBBB): PLAN: She does have a left bundle branch block and we will continue to serially monitor the above. (4) Benign hypertension: PLAN: Her blood pressure appears to be under fair control on the current medications. There may be room to increase her MERRILL inhibitor. (5) Hyperlipidemia: PLAN: She will continue with aggressive risk factor modification. Thank you for allowing me to participate in the care of your patient. Please d on't hesitate to call if any issues arise. HPI Consult Data Date of Consult: 05/19/21 HPI Narrative HPI Narrative: PITO CLARK, is a 50 F who presents to the emergency room with chest discomfort which she says has been getting escalating the worse. She has a known history of coronary disease status post cardiac catheterization in June 2020 which demonstrated mild diffuse disease and moderate disease noted in the left anterior descending artery with left ventricular systolic dysfunction. She was placed on a beta-timothy as well as MERRILL inhibitor and appears to be tolerating this well. She also has a history of hypertension. She says that the above episode was unprovoked and she presented to the emergency room she was noted to be in left bundle branch block and was started on intravenous nitroglycerin. Serial cardiac enzymes were obtained with high- sensitivity troponin which were noted to be abnormal. Cardiology was called for further evaluation and management. At this particular time she still continues to have waxing and waning chest discomfort. [facility] Medical History Benign hypertension Bilateral interstitial pneumonia Chronic low back pain HFrEF (heart failure with reduced ejection fraction) History of non-ST elevation myocardial infarction (NSTEMI) (06/12/20) Hyperglycemia due to type 2 diabetes mellitus Hyperlipidemia Left bundle branch block (LBBB) Non-ischemic cardiomyopathy Nonobstructive atherosclerosis of coronary artery Obesity Status post insertion of nerve stimulator Type 2 diabetes mellitus Home Medications omeprazole 20 mg PO DAILY #30 cap 12/01/18 [Rx Last Taken Unknown] tizanidine 4 mg PO QHS 06/12/20 [History Last Taken Unknown] atorvastatin 40 mg tablet 40 mg PO QHS #90 tab 07/11/20 [Rx Last Taken Unknown] furosemide 40 mg tablet 40 mg PO DAILY #90 tab 07/11/20 [Rx Last Taken Unknown] glipizide 10 mg tablet, extended release 24 hr 10 mg PO BID tab 07/11/20 [History Last Taken Unknown] ondansetron 4 mg disintegrating tablet 4 mg PO Q6H PRN tab 07/11/20 [History Last Taken Unknown] sucralfate 1 gram tablet 1 g PO 4X/DAY PRN tab 07/11/20 [History Last Taken Unknown] tramadol 50 mg tablet 50 mg PO TID PRN tab 07/11/20 [History Last Taken Unknown] carvedilol 12.5 mg tablet 6.25 mg PO BID #120 tab 03/31/21 [Rx Last Taken Unknown] lisinopril 20 mg tablet 20 mg PO DAILY #90 tab 03/31/21 [Rx Last Taken Unknown] Allergy/AdvReac Type Severity Reaction Status Date / Time amoxicillin trihydrate AdvReac Vomiting Verified 05/18/21 18:05 [From Augmentin] potassium clavulanate AdvReac Vomiting Verified 05/18/21 18:05 [From Augmentin] Family History Father Myocardial infarction Cancer prostate, leukemia Agent orange exposure Diabetes Sister Diabetes COPD (chronic obstructive pulmonary disease) Surgical History History of back surgery History of cholecystectomy (1991) History of hysterectomy History of laparoscopy History of left heart catheterization (06/12/20) History of tonsillectomy Social History Smoking Status: Former smoker how long ago did patient quit smokin alcohol intake: current alcohol intake frequency: holidays/special occasions only substance use type: does not use caffeine: Yes ROS Constitutional Constitutional: Denies fever(s) or weight loss Eyes Eyes: Reports systems reviewed and no addt'l complaints, except as documented ENT HEENT: Reports systems reviewed and no addt'l complaints, except as documented Cardiovascular Cardiovascular: Denies chest pain at rest, chest pain with activity, dyspnea at rest, dyspnea on exertion, edema, palpitations or paroxysmal nocturnal dyspnea Respiratory/Chest Respiratory/Chest: Denies dyspnea on exertion, productive cough, shortness of breath at rest or shortness of breath with exertion Gastrointestinal Gastrointestinal: Denies change in bowel habits, nausea, vomiting or weight changes Genitourinary Genitourinary: Denies difficulty urinating Musculoskeletal Musculoskeletal: Denies joint stiffness or muscle weakness Integumentary Integumentary: Denies lesions Neurologic Neurologic: Denies dizziness or syncope Psychiatric Psychiatric: Denies anxiety Endocrine Endocrinology: Denies excessive sweating or fatigue Hematologic/Lymphatic Hematologic/Lymphatic: Denies anemia Allergic/Immunologic Allergic/Immunologic: Denies seasonal rhinorrhea Physical Exam Const alert, oriented x3 and no apparent distress General Appearance: cooperative HEENT hearing grossly normal bilaterally Head and Scalp: atraumatic Eyes EOMs intact bilaterally Neck General: normal visual inspection Chest inspection of chest normal and palpation of chest normal Resp normal respiratory effort Auscultation: clear to auscultation bilaterally Cardio regular rate, regular rhythm, S1 normal heart sound and S2 normal heart sound Jugular Venous Distention: JVD GI normal to inspection, nondistended, normoactive bowel sounds Extremity normal capillary refill and no pedal edema Peripheral Pulses: Yes pulses 2+ throughout and femoral pulses present Skin no rashes or lesions noted Neuro oriented x3 and CN's II-XII intact bilaterally Psych Appearance: grossly normal and appropriate Risk Stratification Risk Stratification Applicable: Yes Age >/= 65: No >/= 3 CAD Risk Factors (HTN, HLD, DM, family hx of CAD, or current smoker): Yes Aspirin Use in the Past 7 Days: Yes Severe Angina (>/= episodes in 24 hours): Yes EKG ST Changes >/= 0.5mm: No Positive Cardiac Marker: Yes AMIE Risk Stratification Score: 4 AMIE % Risk: 20% Risk Objective Data Vital Signs: Vital Signs Temp Pulse Resp BP Pulse Ox 98.0 F 87 18 113/69 98 05/19/21 06:29 05/19/21 06:29 05/19/21 06:29 05/19/21 06:29 05/19/21 06:29 Oxygen Delivery Method Room Air Weight: 215 lb Body Mass Index (BMI) 36.8 Intake & Output: Intake and Output for Last 24 Hours 05/17/21 05/18/21 05/19/21 23:59 23:59 23:59 Intake Total 129.26 / 129.26 Balance 129.26 / 129.26 Lab / Micro Data Result Diagrams: 05/19/21 04:12 05/19/21 05:55 Labs: Laboratory Results - last 24 hr 05/18/21 18:10: WBC 5.8, RBC 4.13 L, Hgb 12.8, Hct 38.2, MCV 92.5, MCH 31.0, M CHC 33.5, RDW Std Deviation 46.1 H, RDW Coeff of Tomi 13.7, Plt Count 198, MPV 10.5, Immature Gran % (Auto) 0.200, Neut % (Auto) 52.0, Lymph % (Auto) 40.2, Mills % (Auto) 6.4, Eos % (Auto) 0.9, Baso % (Auto) 0.3, Absolute Neuts (auto) 3.0, Absolute Lymphs (auto) 2.34, Nucleated RBC % 0 05/18/21 18:10: Sodium 139, Potassium 4.0, Chloride 108 H, Carbon Dioxide 27.0, Anion Gap 4 L, BUN 23 H, Creatinine 0.91, Estim Creat Clear Calc 63.16, Est GFR (MDRD) Af Amer 83, Est GFR (MDRD) Non-Af 69, BUN/Creatinine Ratio 25.2 H, Glucose 248 H, Calcium 9.6, Troponin I High Sens 470 H* 05/18/21 18:10: B-Natriuretic Peptide 221.5 H 05/18/21 19:45: PT 12.9, INR 1.0, APTT 27.2 05/19/21 00:47: Troponin I High Sens 860 H* 05/19/21 04:12: WBC 5.2, RBC 4.04 L, Hgb 12.8, Hct 37.5, MCV 92.8, MCH 31.7, MCHC 34.1, RDW Std Deviation 46.6 H, RDW Coeff of Tomi 13.6, Plt Count 178, MPV 10.6, Immature Gran % (Auto) 0.200, Neut % (Auto) 35.1 L, Lymph % (Auto) 56.9 H, Mills % (Auto) 6.4, Eos % (Auto) 1.0, Baso % (Auto) 0.4, Absolute Neuts (auto) 1.8 L, Absolute Lymphs (auto) 2.94, Nucleated RBC % 0 05/19/21 04:12: Troponin I High Sens 759 H* 05/19/21 04:12: APTT 133.7 H* 05/19/21 05:55: Sodium 142, Potassium 3.9, Chloride 111 H, Carbon Dioxide 27.0, Anion Gap 4 L, BUN 16, Creatinine 0.83, Estim Creat Clear Calc 69.24, Est GFR (MDRD) Af Amer 93, Est GFR (MDRD) Non-Af 77, BUN/Creatinine Ratio 19.2, Glucose 165 H, Calcium 9.1, Magnesium 2.1, Troponin I High Sens 669 H* Cardiology Labs/Tests 05/18/21 18:10: WBC 5.8, RBC 4.13 L, Hgb 12.8, Hct 38.2, MCV 92.5, MCH 31.0, MCHC 33.5, Plt Count 198, MPV 10.5, Immature Gran % (Auto) 0.200, Neut % (Auto) 52.0, Lymph % (Auto) 40.2, Mills % (Auto) 6.4, Eos % (Auto) 0.9, Baso % (Auto) 0.3, Absolute Neuts (auto) 3.0, Nucleated RBC % 0 05/18/21 18:10: Sodium 139, Potassium 4.0, Chloride 108 H, Carbon Dioxide 27.0, Anion Gap 4 L, BUN 23 H, Creatinine 0.91, Est GFR (MDRD) Af Amer 83, Est GFR (MDRD) Non-Af 69, BUN/Creatinine Ratio 25.2 H, Glucose 248 H, Calcium 9.6 05/18/21 18:10: B-Natriuretic Peptide 221.5 H 05/18/21 19:45: PT 12.9, INR 1.0, APTT 27.2 05/19/21 04:12: WBC 5.2, RBC 4.04 L, Hgb 12.8, Hct 37.5, MCV 92.8, MCH 31.7, MCHC 34.1, Plt Count 178, MPV 10.6, Immature Gran % (Auto) 0.200, Neut % (Auto) 35.1 L, Lymph % (Auto) 56.9 H, Mills % (Auto) 6.4, Eos % (Auto) 1.0, Baso % (Auto) 0.4, Absolute Neuts (auto) 1.8 L, Nucleated RBC % 0 05/19/21 04:12: APTT 133.7 H* 05/19/21 05:55: Sodium 142, Potassium 3.9, Chloride 111 H, Carbon Dioxide 27.0, Anion Gap 4 L, BUN 16, Creatinine 0.83, Est GFR (MDRD) Af Amer 93, Est GFR (MDRD) Non-Af 77, BUN/Creatinine Ratio 19.2, Glucose 165 H, Calcium 9.1, Magnesium 2.1 Rhythm: EKG: ECHO: Stress Test: Cardiac Cath: PCI: CT Surgery: Holter monitor: EPS: PPM: CXR: Chest CT Scan: Radiography Diagnostic Testing: Radiology Impression Chest X-Ray 05/18/21 18:05 IMPRESSION: No acute findings in the chest. Electronically Signed: Kirk James MD at 21:54 EST Tel , Service support ,
--- NOTE | 2021-05-19 09:07 | CL.D_ITS ---
Patient Name: PITO CLARK Study Date: 05/19/2021 Performing: Cr Ho MD Ht: 64.17 inches 163 cm : 1970 Wt: 216.05 lbs 98 kg Age: 50 Gender: female BSA: 2.03 PROCEDURE(S) PERFORMED DC02-(13628)C/COR CLINICAL PROFILE AND INDICATIONS Indications: Suspected CAD Heart Failure: None Stress/Imaging Stress/Image Study Performed: No CONCLUSIONS High-grade mid LAD stenosis with mild disease noted in the circumflex artery and right coronary arter y. RECOMMENDATIONS Referred for immediate PCI DESCRIPTION OF PROCEDURE The patient arrived to the procedure lab. The risks and benefits of the procedure as well as a full d escription of our services here and current unavailability of surgical backup were fully explained to the patient and/or their significant other prior to the catheterization. The Timeout was completed, verifying the correct patient and procedure. The patient's procedural site was prepped and draped in the usual fashion. Local anesthetic was given subcutaneously to right radial region with Lidocaine 2% . Using a modified Seldinger technique, arterial access was obtained via the right radial artery, a 6 Fr sheath was inserted. Left Coronary Artery selective angiography was performed in multiple views u sing a 5 Fr. 4.0 [place] catheter. Right Coronary Artery selective angiography was then performed in mu ltiple views using a 5 Fr. JR 5 catheter. CORONARY ANGIOGRAPHY DOMINANCE: Right Dominant LEFT HEART ASSESSMENT Left Ventricular Ejection Fraction: by Echo 40 % LEFT MAIN: Angiographically normal LEFT ANTERIOR DESCENDING ARTERY: MID LAD: 95 % Stenosis CIRCUMFLEX ARTERY: Mild luminal irregularities RIGHT CORONARY ARTERY: Mild luminal irregularities COMPLICATIONS PROCEDURE MEDICATIONS Versed 1 mg IV Fentanyl 50 mcg IV Versed 1 mg IV Fentanyl 50 mcg IV Versed 1 mg IV Fentanyl 50 mcg IV Versed 1 mg IV Versed 1 mg IV Aspirin (325mg) 1 Tabs PO @ 05/19/2021 07:41:31 Heparin given IA 05/19/2021 08:36:38 Verapamil 2.5mg, Ntg 100mcgs 05/19/2021 08:44:11 SUMMARY OF HEMODYNAMIC DATA Time AIR REST ECG 07:41:57 AO 134/82 (104) SA 08:37:58 Signed By Cr Ho MD On 05/19/2021 9:07:20 AM Cr Ho MD
--- NOTE | 2021-05-19 10:11 | CL.I_ITS ---
Patient Name: PITO CLARK Study Date: 05/19/2021 Performing: Monica Ly MD Ht: 64.17 inches 163 cm : 1970 Wt: 216.05 lbs 98 kg Age: 50 Gender: female BSA: 2.03 PROCEDURE(S) PERFORMED IC12-(24505/C9600)BEATRICE W/WO PTCA, SINGLE CORONARY ARTERY CLINICAL PROFILE AND CO-MORBIDITIES Indications: Suspected CAD Heart Failure: None Stress/Imaging Stress/Image Study Performed: No CONCLUSIONS Successful BEATRICE to mLAD RECOMMENDATIONS DESCRIPTION OF PROCEDURE The patient arrived to the procedure lab. The risks and benefits of the procedure as well as a full d escription of our services here and current unavailability of surgical backup were fully explained to the patient and/or their significant other prior to the catheterization. The Timeout was completed, verifying the correct patient and procedure. The patient's procedural site was prepped and draped in the usual fashion. Local anesthetic was given subcutaneously to right radial region with Lidocaine 2% Using a modified Seldinger technique,arterial access was obtained via the right radial artery, a 6Fr sheath was inserted. Left Coronary Artery selective angiography was performed in multiple views usin g a 5 Fr. 4.0 [place] catheter. Right Coronary Artery selective angiography was then performed in multi ple views using a 5 Fr. JR 5 catheter. XB 3.0 Guide catheter was inserted and engaged into the LCA. BMW Guide wire was advanced to the L AD. Emerge 2.00x12 Balloon catheter was inserted. PTCA balloon inflated at 8 atms for 14 secs. Angiog harvey performed post balloon dilatation. Orsiro 2.5x15 Balloon catheter was inserted. Angiogram perform ed post stent deployment. The arterial sheath was pulled and a TR Band was applied for hemostasis 1 4ml air INTERVENTION INFORMATION LESION SITE: LAD (Mid) Lesion Complexity: High/C, chronic total occlusion: No, lesion at bifurcation: No, thrombus present: Yes, lesion length: 13 mm, culprit lesion: Yes, Previously treated lesion: No Pre Stenosis: 99 % Pre intervention AMIE flow: 2 PROCEDURE: Drug Eluting Stent with pre dilatation. Post Stenosis: 0 % Post intervention AMIE flow: 3 Lesion Devices: Jaimes .014 BMW [place] Straight 190cm Cardinal 6 Fr XB3.0 100cm Guide Catheter Benny Sci EMERGE MR 2.00x12 BALLOON Biotronik Orsiro [place] MR BEATRICE 2.5x15 COMPLICATIONS No Complications PROCEDURE MEDICATIONS Versed 1 mg IV Fentanyl 50 mcg IV Versed 1 mg IV Fentanyl 50 mcg IV Versed 1 mg IV Fentanyl 50 mcg IV Versed 1 mg IV Versed 1 mg IV Aspirin (325mg) 1 Tabs PO 05/19/2021 07:41:31 Brilinta 180 mg PO @ 05/19/2021 09:18:16 Heparin given IA 05/19/2021 08:36:38 Heparin 5000 unit(s) IV 05/19/2021 09:20:25 Verapamil 2.5mg, Ntg 100mcgs 05/19/2021 08:44:11 SUMMARY OF HEMODYNAMIC DATA Time AIR REST ECG 07:41:57 AO 134/82 (104) SA 08:37:58 LV 141/1, 18 09:08:26 LV 133/1, 20 09:08:33 LVp 133/1, 26 09:08:51 AOp 137/69 (95) 09:08:56 Signed By Monica Ly MD On 05/19/2021 10:11:00 Monica Ly MD
--- NOTE | 2021-05-19 10:30 | CASEMGMT ---
RN KVNG Face to Face with patient for initial transition planning/care coordination assessment. RN CM introduced self and role at [facility]. Patient lying in bed, alert and oriented, significant other at bedside. Patient willing to participate in assessment and is able to answer all questions appropriately. Care providers, pharmacy, and demographics verified. Patient wishes to discharge home, denies need for home health at this time. Patient states she has no further needs or concerns at this time. CM to follow for discharge planning needs that may arise. PCP: Rc Specialists: Vic, auto body repair technician; Basali, pain [facility]erred [facility] Benef[facility]: yes, Brilinta savings card provided to patient Living Will/HPOA: yes, significant other Tino Heaton LNOK: significant other, son Living Arrangements: Patient lives with significant other in a 1st floor apartment with no steps to enter. Patient states she is independent at home. Transportation: self/significant DME/HHC: Patient denies DME or previous HHC. Disposition Plan: Patient to discharge home with family support and follow-up plans in place. Ofelia BURNETT, RN, CM
--- NOTE | 2021-05-19 11:12 | CRPHASE1_ITS ---
Patient Communication PHII Cardiac Rehab Discussed with Patient:: Yes Guide to Cardiac Rehab Given to Patient:: Yes Cardiac Rehab Facility Choice List Given to Patient:: Yes Choice Program [facility] CR PHII:: Communication Given to CR, Refer to [facility] Exercise Physiologist:: Joslyn Ly Phase II Cardiac Rehab:: Yes Sessions:: 36 sessions - 2 days/wk, 18 weeks Cardiac Rehabilitation Info Cardiac Rehabilitation Program Information: Cardiac Rehabilitation is important for patients like you who are recovering from a heart problem. Cardiac rehabilitation programs are recognized as integral to the continued care of the patient with coronary heart disease. The cardiac rehabilitation program is designed to optimize a patient's physical, psychological, and social functioning. Health child caregiver work in cardiac rehabilitation programs and assist you with getting the treatments you need to get stronger and healthier - like exercise, healthy eating habits, and medications. Cardiac rehabilitation has been show to help people with heart problems live longer and have better life enjoyment than people who do not go to cardiac rehabilitation. Please contact the Cardiac Rehabilitation Program at [facility] [place] at in two weeks if you have not heard from them.
--- NOTE | 2021-05-19 11:13 | CRPH1.INSTRU ---
General Education CAD and cardiac anatomy and function:: Patient communicates acknowledgment Explanation of diagnoses and procedures:: Patient communicates acknowledgment Sign/Symptoms of [place]:: Patient communicates acknowledgment Antiplatelet therapy: Patient communicates acknowledgment Proper use of NTG-SL: Patient communicates acknowledgment Emergency procedures and activation of EMS: Patient communicates acknowledgment Compliance of all prescribed medications: Patient communicates acknowledgment - book & education given to patient via construction laborer RN
[2021-05-19] MEDS: 0.9% Normal Saline 1,000 ML 60 ML IV (11:57)
--- NOTE | 2021-05-19 13:31 | PCM.PN.HOSP ---
Subjective Subjective Patient notes mild discomfort in the right wrist from her morning procedure. Denies any orthopnea or PND overnight nor any dyspnea this morning. She does not report any chest pain headache. Notes that she lost about 125 pounds past 1 year. She was intolerant of CPAP therapy because she felt like she was suffocating. She has not tried CPAP therapy in the past 7 years. Objective Data Objective Data Vital Signs: Vital Signs Temp Pulse Resp BP Pulse Ox 98.0 F 87 18 113/69 98 05/19/21 06:29 05/19/21 06:29 05/19/21 06:29 05/19/21 06:29 05/19/21 06:29 Oxygen Delivery Method Room Air Weight: 215 lb Body Mass Index (BMI) 36.8 Intake & Output: Intake and Output for Last 24 Hours 05/17/21 05/18/21 05/19/21 23:59 23:59 23:59 Intake Total 129.26 / 129.26 Balance 129.26 / 129.26 Lab / Micro Data Result Diagrams: 05/19/21 04:12 05/19/21 05:55 Labs: Laboratory Results - last 24 hr 05/19/21 00:47: Troponin I High Sens 860 H* 05/19/21 04:12: WBC 5.2, RBC 4.04 L, Hgb 12.8, Hct 37.5, MCV 92.8, MCH 31.7, MCHC 34.1, RDW Std Deviation 46.6 H, RDW Coeff of Tomi 13.6, Plt Count 178, MPV 10.6, Immature Gran % (Auto) 0.200, Neut % (Auto) 35.1 L, Lymph % (Auto) 56.9 H, [place] % (Auto) 6.4, Eos % (Auto) 1.0, Baso % (Auto) 0.4, Absolute Neuts (auto) 1.8 L, Absolute Lymphs (auto) 2.94, Nucleated RBC % 0 05/19/21 04:12: Troponin I High Sens 759 H* 05/19/21 04:12: APTT 133.7 H* 05/19/21 05:55: Sodium 142, Potassium 3.9, Chloride 111 H, Carbon Dioxide 27.0, Anion Gap 4 L, BUN 16, Creatinine 0.83, Estim Creat Clear Calc 69.24, Est GFR (MDRD) Af Amer 93, Est GFR (MDRD) Non-Af 77, BUN/Creatinine Ratio 19.2, Glucose 165 H, Calcium 9.1, Magnesium 2.1, Troponin I High Sens 669 H* Radiography Diagnostic Testing: Radiology Impression Chest X-Ray 05/18/21 18:05 IMPRESSION: No acute findings in the chest. Electronically Signed: Kirk James MD at 21:54 EST Tel , Service support , Physical Exam Narrative Obese, lying in bed sleeping but arousable to light touch. She had increased neck circumference with a supple neck. Her lungs were clear to auscultation bilaterally with no rales or wheezing. Her heart was regular with distant sounds and no murmurs or gallops. She had no pretibial edema but did have chronic venous stasis changes. She was alert and oriented x3 after being awakened with no focal motor weakness. She had a normal affect and mood. Assessment & Plan Assessment/Plan (1) Non-ST elevation HI (NSTEMI): (2) Presence of stent in coronary artery: PLAN: 1. The patient had a stent placed in the mid LAD for a 95% lesion today. 2. There is no need to continue following the troponin as it was trending down as of 5:55 AM on 05/19/2021. 3. The patient will follow up with cardiology in the outpatient setting. 4. She will continue with cardiac monitoring overnight with her left bundle branch block and new stent. 5. She will use Brilinta twice daily with her stent. (3) Atherosclerotic heart disease of [place] coronary artery without angina pectoris: PLAN: 1. We discussed the benefits of secondary prevention with her hypertension, diabetes, and hyperlipidemia. 2. She will continue with beta-blockers and statin therapy. 3. Patient has ischemic cardiomyopathy with a percent ejection fraction by echocardiogram June 2020. 4. She takes lisinopril 20 mg daily and will continue that (4) Benign hypertension: PLAN: 1. Her blood pressure is adequately controlled on current regimen. 2. We discussed the benefits of weight loss sleep apnea treatment (5) Type 2 diabetes mellitus: PLAN: 1. I will repeat the patient's globin A1c in the morning of 05/20/2021. 2. She has lost 125 pounds in the past year with intermittent fasting. 3. On insulin in the past but uses oral hypoglycemics at this point. (6) Hyperlipidemia: PLAN: 1. Her LDL was 109 as of December 2018 from the records. 2. I will repeat her fasting lipid profile in the morning of 05/20/2021. 3. I will increase her Lipitor to 80 mg daily. (7) Obesity: PLAN: 1. The patient has been successful with significant weight loss over the past year. 2. She will continue with her intermittent fasting. 3. She would do well to consider emotional health counseling in relation to her weight (8) Sleep apnea: PLAN: 1. I encouraged her to consider reassessing her sleep disordered breathing. 2. She was intolerant of face masks in the past but did not try nasal pillows. 3. She will discuss this with her primary care provider (her was present for the discussion as well). Charges/Coding Visit Charges Inpatient E&M: 38264 Subs Hosp L3
--- NOTE | 2021-05-19 16:51 | NURSING ---
Please refer to Day Care Aide End of Case Report for details and information including but not limited to vitals, assessment, hourly rounds, regarding Pt. recovery and discharge.
--- NOTE | 2021-05-19 19:34 | NURSING ---
Patient continues recovery in Productivity Engineer holding area. Please refer to end of case report for right arm assessment, pain assessment, vitals, and continued care of patient. 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
[2021-05-19] MEDS: TICAGRELOR 90 MG TABLET PO (22:56)
[2021-05-19] MEDS: Atorvastatin Calcium 80 MG Tablet PO (22:58)
[2021-05-19] MEDS: tiZANidine HCl 2 MG Tablet 4 MG PO (22:58)
[2021-05-19] MEDS: traMADol 50 MG Tablet PO (23:00)
[2021-05-20 05:52] LABS: Hematocrit 35.7 % (37-47); Hemoglobin 11.6 g/dL (12.0-15.0); Mean Corp Hgb Conc 32.5 g/dL (32-36); Mean Corpuscular Hgb 30.5 pg (27.0-32.0); Mean Corpuscular Volume 93.9 fL (81-99); Mean Platelet Vol. 10.5 fl (6.2-12.0); Platelet Count 171 K/mm3 (150-450); RBC Distribution Width CV 13.6 % (11.6-14.6); RBC Distribution Width SD 46.7 fl (35.1-43.9); White Blood Count 5.2 K/mm3 (4.4-11.0)
[2021-05-20 05:53] VITALS: O2SAT 96
[2021-05-20 06:09] LABS: ALB/GLOB Ratio 0.8 RATIO (0.9-2.4); AST(SGOT) 17 U/L (15-37); Alanine Aminotransfer ALT/SGPT 21 U/L (13-56); Albumin, Serum 2.7 g/dL (3.2-5.0); Alkaline Phosphatase 57 U/L (45-117); Anion Gap 7 (5-15); BUN 15 mg/dL (7-18); BUN/Creat Ratio 18.5 RATIO (10-20); Calcium,Total 8.8 mg/dL (8.5-10.1); Chloride 110 mmol/L (98-107); Cholesterol 105 mg/dL (200); Creatinine, Serum 0.81 mg/dL (0.55-1.02); EST Glomerular Filtration Rate 79 mL/min (>60); Est Glom Filt Rate - Afr Amer 96 mL/min (>60); Estimated Creatinine Clearance 70.95 ml/min; Globulin 3.6 g/dL (2.2-4.2); Glucose 230 mg/dL (74-106); High Density Lipoprotein 41 mg/dL; Potassium 3.9 mmol/L (3.5-5.1); Protein, Total 6.3 g/dL (6.4-8.2); Sodium Level 140 mmol/L (136-145); Triglycerides 140 mg/dL; Very Low Density Lipoprotein 28 mg/dL (5-40)
--- NOTE | 2021-05-20 08:03 | PCM.PN.CARD ---
Subjective Subjective Patient seen and eval noted. Appears to be doing well. No cardiac complaints this morning. Feels better. Objective Data Vital Signs: Vital Signs Temp Pulse Resp BP Pulse Ox 98.0 F 95 18 113/69 96 05/19/21 06:29 05/19/21 15:04 05/19/21 06:29 05/19/21 06:29 05/20/21 05:53 Oxygen Delivery Method Room Air Weight: 215 lb Body Mass Index (BMI) 36.8 Intake & Output: Intake and Output for Last 24 Hours 05/18/21 05/19/21 05/20/21 23:59 23:59 23:59 Intake Total 129.26 / 129.26 Balance 129.26 / 129.26 Lab / Micro Data Result Diagrams: 05/20/21 05:25 05/20/21 05:25 Labs: Laboratory Results - last 24 hr 05/20/21 05:25: WBC 5.2, RBC 3.80 L, Hgb 11.6 L, Hct 35.7 L, MCV 93.9, MCH 30.5, MCHC 32.5, RDW Std Deviation 46.7 H, RDW Coeff of Tomi 13.6, Plt Count 171, MPV 10.5 05/20/21 05:25: Sodium 140, Potassium 3.9, Chloride 110 H, Carbon Dioxide 23.0, Anion Gap 7, BUN 15, Creatinine 0.81, Estim Creat Clear Calc 70.95, Est GFR (MDRD) Af Amer 96, Est GFR (MDRD) Non-Af 79, BUN/Creatinine Ratio 18.5, Glucose 230 H, Calcium 8.8, Total Bilirubin 0.70, AST 17, ALT 21, Alkaline Phosphatase 57, Total Protein 6.3 L, Albumin 2.7 L, Globulin 3.6, Albumin/Globulin Ratio 0.8 L, Triglycerides 140, Cholesterol 105, LDL Cholesterol 36, VLDL Cholesterol 28, HDL Cholesterol 41 Cardiology Labs/Tests 05/20/21 05:25: WBC 5.2, RBC 3.80 L, Hgb 11.6 L, Hct 35.7 L, MCV 93.9, MCH 30.5, MCHC 32.5, Plt Count 171, MPV 10.5 05/20/21 05:25: Sodium 140, Potassium 3.9, Chloride 110 H, Carbon Dioxide 23.0, Anion Gap 7, BUN 15, Creatinine 0.81, Est GFR (MDRD) Af Amer 96, Est GFR (MDRD) Non-Af 79, BUN/Creatinine Ratio 18.5, Glucose 230 H, Calcium 8.8, Total Bilirubin 0.70, Triglycerides 140, Cholesterol 105, LDL Cholesterol 36, VLDL Cholesterol 28, HDL Cholesterol 41 Rhythm: EKG: ECHO: Stress Test: Cardiac Cath: PCI: CT Surgery: Holter monitor: EPS: PPM: CXR: Chest CT Scan: Physical Exam Const alert, oriented x3 and no apparent distress General Appearance: cooperative HEENT hearing grossly normal bilaterally Head and Scalp: atraumatic Eyes EOMs intact bilaterally Neck General: normal visual inspection Chest inspection of chest normal and palpation of chest normal Resp normal respiratory effort Auscultation: clear to auscultation bilaterally Cardio regular rate, regular rhythm, S1 normal heart sound and S2 normal heart sound Jugular Venous Distention: JVD GI normal to inspection, nondistended, normoactive bowel sounds Extremity normal capillary refill and no pedal edema Peripheral Pulses: Yes pulses 2+ throughout and femoral pulses present Skin no rashes or lesions noted Neuro oriented x3 and CN's II-XII intact bilaterally Psych Appearance: grossly normal and appropriate Assessment & Plan Assessment/Plan (1) History of coronary artery stent placement: PLAN: Patient has a history of coronary artery disease with recently diagnosed LAD disease for which she underwent angioplasty and stenting. The plan is for her to continue the current medical therapy. We will continue aspirin Continue P2 Y 12 inhibitor Continue beta-timothy Continue ARB Continue high intensity statin Discharge for outpatient follow-up and rehabilitation (2) Non-ST elevation RI (NSTEMI): PLAN: Patient with non-ST elevation myocardial infarction with treatment as above (3) Non-ischemic cardiomyopathy: PLAN: Patient with nonischemic cardiomyopathy. Plan is to continue the guideline directed medical therapy. Would also consider the addition of SGL 2 inhibitor. (4) HFrEF (heart failure with reduced ejection fraction): PLAN: Patient has mild heart failure with reduced ejection fraction. (5) Benign hypertension: PLAN: Her blood pressure is under good control and will not make any other changes at this time. Thank you for allowing me to participate in the care of your patient. Please don't hesitate to call if any issues arise.
--- NOTE | 2021-05-20 08:12 | PCM.DC ---
Discharge Instructions Diet Discharge Diet: No restrictions (You may continue your normal diet.) Activity Lifting Restrictions: 10 pounds and also avoid any pushing or pulling for 3 days after your test. Additional Activity Instructions:: You must have someone drive you home. Do not drive until instructed by your doctor. You must have someone stay with you all night after your test. Rest in bed or on the couch until the next morning. Limit the number of times you go up and down stairs the day of your test. Apply pressure to the puncture site if you sneeze or cough. Dressing / Incision Call your doctor if your incision/area has: Increased Pain/ Swelling, Increased Redness, Foul Smelling Discharge and Swelling at the incision site Call your doctor if you observe: Fever of 101 or Higher Additional Dressing/Incision Instructions:: Keep the dressing (bandage) on until the next morning. You may then shower, but do not take a tub bath for 5 days after your test. It is normal to have some tenderness and discomfort at the puncture site. Sometimes bruising also occurs. However, if pain, numbness, or coldness occurs below the puncture site (in your leg, toes, arms or fingers) call your doctor at once. You may have a small, marble sized knot at the puncture site. This is normal. Do not rub it. It will go away in 4-6 weeks. Bleeding can occur from the area where the puncture was done. Blood may spurt or drip from the site. If blood spurts, apply pressure right away to stop bleeding and call 911. Although rare, bleeding into the tissue (hematoma) can also occur. If this happens, a large, firm area goose egg under the skin will appear. If any of these occur, lie down as flat as you can and have someone apply firm pressure to the cath site with a gauze pad or a clean washcloth for 10-15 minutes. Call 911 or go to the Emergency Department. Follow Up Care Test Results: Test results from this visit will be discussed in further detail at your follow-up appointment, if applicable. Discharge Plan Admission Admit Date/Time: 05/18/21 19:54 Attending Provider: Navdeep Bourgeois Primary Care Provider: Margo Tatum Consulting Providers: Cr Ho Discharge Orders/Prescriptions Prescriptions: New atorvastatin 80 mg Tablet 80 mg PO QHS Qty: 60 RF: 2 Brilinta 90 mg Tablet 90 mg PO BID Qty: 180 RF: 2 dapagliflozin 5 mg tablet 5 mg PO DAILY Qty: 60 RF: 3 Continued ondansetron 4 mg tablet,disintegrating 4 mg PO Q6H PRN (Reason: Nausea) RF: 0 sucralfate 1 gram tablet 1 g PO 4X/DAY PRN (Reason: Constipation) RF: 0 glipizide 10 mg tablet extended release 24hr 10 mg PO BID RF: 0 furosemide 40 mg tablet 40 mg PO DAILY Qty: 90 RF: 3 carvedilol 12.5 mg tablet 6.25 mg PO BID Qty: 120 RF: 3 lisinopril 20 mg tablet 20 mg PO DAILY Qty: 90 RF: 3 tramadol 50 mg tablet 50 mg PO TID PRN (Reason: Pain) RF: 0 omeprazole 20 MG capsule 20 mg PO DAILY Qty: 30 RF: 0 tizanidine 4 MG tablet 4 mg PO QHS RF: 0 Discontinued atorvastatin 40 mg tablet 40 mg PO QHS Qty: 90 RF: 3 Referrals / Follow Up: Margo Tatum DO [Primary Care Provider] - Disposition Disposition (needs filled in before D/C Order can be placed): Home, Self Care
[2021-05-20 08:13] LABS: Hemoglobin A1c 9.6 % (3.8-5.6)
[2021-05-20] MEDS: Lisinopril 20 MG Tablet PO (08:19)
[2021-05-20] MEDS: glipiZIDE XL 5 MG Tablet 10 MG PO (08:19)
[2021-05-20] MEDS: Carvedilol 6.25 MG Tablet PO (08:20)
[2021-05-20] MEDS: Furosemide 40 MG Tablet PO (08:20)
[2021-05-20] MEDS: TICAGRELOR 90 MG TABLET PO (08:23)
[2021-05-20 08:56] VITALS: RESP 18
--- NOTE | 2021-05-20 09:09 | CASEMGMT ---
Called patient pharmacy- [facility] S/w [facility] and provided Brillinta Coupon Card. 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 Greyson Ledesma RNCM
== END 2021-05-20 09:08 | disposition home or self-care (01) | DRG 247 ==
LOC: ED 20:05 → PCU 22:37
PROVIDERS: Internal Medicine; Specialist; Admitting Provider Family Medicine; Emergency Provider Emergency Medicine; PCP Family Medicine; Visit Provider Internal Medicine
DX: I21.4 Non-ST elevation (NSTEMI) myocardial infarction (principal); I50.22 Chronic systolic (congestive) heart failure; I11.0 Hypertensive heart disease with heart failure; I25.5 Ischemic cardiomyopathy; I25.10 Atherosclerotic heart disease of native coronary artery without angina pectoris; I44.7 Left bundle-branch block, unspecified; I25.2 Old myocardial infarction; G47.30 Sleep apnea, unspecified; E78.5 Hyperlipidemia, unspecified; E11.9 Type 2 diabetes mellitus without complications; E66.9 Obesity, unspecified; Z68.36 Body mass index [BMI] 36.0-36.9, adult; Z95.5 Presence of coronary angioplasty implant and graft; Z79.4 Long term (current) use of insulin; Z79.84 Long term (current) use of oral hypoglycemic drugs; Z79.899 Other long term (current) drug therapy; Z87.891 Personal history of nicotine dependence
CPT/HCPCS: 36415; 71045; 80048; 80053; 80061; 83036; 83735; 83880; 84484; 85025; 85027; 85610; 85730; 92928; 93005; 93454; 99152; 99153; 99285; C1874; J7030; J7040; Q9967; A4216; C1725; C1769; C1887; C1894; C9600; J1327; J2405

== ENCOUNTER 2021-05-22 19:37 | Inpatient (IN) | payer MEDICARE, MEDICAID, SELFPAY ==
[2021-05-22] VITALS (10 sets, daily range): BP systolic 79–141; BP diastolic 36–111; PULSE 64–85; RESP 12–21; TEMP 36–36.8; O2SAT 97–100; BMI 37.8; BMI 35.6
--- NOTE | 2021-05-22 20:04 | RAD_ITS ---
STUDY: X-RAY CHEST REASON FOR EXAM: Female, 50 years old. chest pain TECHNIQUE: Frontal portable view of the chest COMPARISON: 18 May 2021 FINDINGS: Spinal optimization electrodes terminate in the midthoracic region. The lungs are clear and expanded. There is no demonstrated pleural abnormality. Normal size heart. Normal mediastinum and tony. Normal visualized pulmonary arteries. Normal visualized aortic arch and descending thoracic aorta. Normal visualized thoracic spine. Normal visualized ribs, clavicles, and shoulders. There is no demonstrated abnormality of the visualized soft tissue structures of the upper abdomen. RAD/Chest 1 View (Portable) IMPRESSION: Normal x-ray examination of the chest. Electronically Signed: Pierce Blount MD at 20:51 EST Tel , Service support ,
--- NOTE | 2021-05-22 20:04 | EKG12_ITS ---
Test Reason : CP Blood Pressure : / mmHG Vent. Rate : 081 BPM Atrial Rate : 081 BPM P-R Int : 190 ms QRS Dur : 162 ms QT Int : 444 ms P-R-T Axes : 045 001 094 degrees QTc Int : 515 ms Sinus rhythm with Premature supraventricular complexes Left bundle branch block Abnormal ECG Confirmed by GUCCI GEE, PAT ([id number]), photo editor JAYLIN FRANK ([id number]) on 05/25/2021 11:04:08 AM Referred By: RHINA Confirmed By:PAT DUCKWORTH MD
--- NOTE | 2021-05-22 20:07 | ED.VIS.CHEST ---
HPI History of Present Illness Chief Complaint: Chest Pain Narrative Narrative: 50-year-old female heart failure with reduced ejection fraction, NSTEMI recently and had a cardiac stent placed by Dr. Ho in the mid LAD. Patient reports he also had a heart attack in June. She states she does not get a stent at that time. Patient states that she was having shortness of breath at home tonight and started to come to the ER and started to have chest pain which feels like heaviness. Patient denies a fever or cough. She has had a little bit of diaphoresis. PFSH PFS Medical History Atherosclerotic heart disease of [place] coronary artery without angina pectoris Benign hypertension Bilateral interstitial pneumonia Chronic low back pain HFrEF (heart failure with reduced ejection fraction) History of non-ST elevation myocardial infarction (NSTEMI) (06/12/20) Hyperglycemia due to type 2 diabetes mellitus Hyperlipidemia Left bundle branch block (LBBB) Non-ischemic cardiomyopathy Nonobstructive atherosclerosis of coronary artery Obesity Status post insertion of nerve stimulator Type 2 diabetes mellitus Home Medications omeprazole 20 mg PO DAILY #30 cap 12/01/18 [Rx Last Taken Unknown] tizanidine 4 mg PO QHS 06/12/20 [History Last Taken Unknown] furosemide 40 mg tablet 40 mg PO DAILY #90 tab 07/11/20 [Rx Last Taken Unknown] glipizide 10 mg tablet, extended release 24 hr 10 mg PO BID tab 07/11/20 [History Last Taken Unknown] ondansetron 4 mg disintegrating tablet 4 mg PO Q6H PRN tab 07/11/20 [History Last Taken Unknown] sucralfate 1 gram tablet 1 g PO 4X/DAY PRN tab 07/11/20 [History Last Taken Unknown] tramadol 50 mg tablet 50 mg PO TID PRN tab 07/11/20 [History Last Taken Unknown] carvedilol 12.5 mg tablet 6.25 mg PO BID #120 tab 03/31/21 [Rx Last Taken Unknown] lisinopril 20 mg tablet 20 mg PO DAILY #90 tab 03/31/21 [Rx Last Taken Unknown] aspirin 81 mg PO DAILY #60 cap 05/20/21 [Rx Last Taken Unknown] atorvastatin 80 mg PO QHS #60 tab 05/20/21 [Rx Last Taken Unknown] dapagliflozin 5 mg PO DAILY #60 tab 05/20/21 [Rx Last Taken Unknown] ticagrelor [Brilinta] 90 mg PO BID #180 tab 05/20/21 [Rx Last Taken Unknown] Allergy/AdvReac Type Severity Reaction Status Date / Time amoxicillin trihydrate AdvReac Vomiting Verified 05/18/21 18:05 [From Augmentin] potassium clavulanate AdvReac Vomiting Verified 05/18/21 18:05 [From Augmentin] Family History Father Myocardial infarction Cancer prostate, leukemia Agent orange exposure Diabetes Sister Diabetes COPD (chronic obstructive pulmonary disease) Surgical History History of back surgery History of cholecystectomy (1991) History of coronary artery stent placement History of hysterectomy History of laparoscopy History of left heart catheterization (06/12/20) History of tonsillectomy Presence of coronary angioplasty implant and graft (~05/19/21) Social History Smoking Status: Former smoker how long ago did patient quit smokin alcohol intake: current alcohol intake frequency: holidays/special occasions only substance use type: does not use caffeine: Yes ROS ROS ED Constitutional Constitutional ED: Reports sweats; Denies chills or fever(s) Eyes Eyes: Denies blurry vision or change in vision ENT ENT ED: Denies rhinorrhea or sore throat Cardiovascular Cardiovascular: Reports as per HPI Respiratory/Chest Respiratory/Chest: Reports dyspnea and dyspnea on exertion; Denies cough Gastrointestinal Gastrointestinal: Denies abdominal pain or nausea Genitourinary Genitourinary ED: Denies dysuria or hematuria Musculoskeletal Musculoskeletal: Denies arthralgias or myalgias Integumentary Denies Abrasions or rash Neurologic Neurologic: Denies headache(s) or weakness EXAM Physical Exam Const Vital Signs: 05/22/21 19:37 05/22/21 19:54 05/22/21 20:14 Temperature 96.8 F L Temperature Source Temporal Pulse Rate 85 79 Respiratory Rate 20 H 21 H Respiratory Effort Normal Non-Labored Blood Pressure 114/78 141/111 H Blood Pressure Mean 90 121 Pulse Ox 99 98 97 Oxygen Delivery Method Room Air Nasal Cannula Nasal Cannula Oxygen Flow Rate (L/min) 2 2 05/22/21 21:00 05/22/21 21:12 05/22/21 21:13 Temperature Temperature Source Pulse Rate 70 74 64 Respiratory Rate 12 Respiratory Effort Blood Pressure 80/36 L 89/49 L 79/50 L Blood Pressure Mean 50 62 59 Pulse Ox 97 Oxygen Delivery Method Room Air Oxygen Flow Rate (L/min) 05/22/21 21:31 Temperature Temperature Source Pulse Rate 70 Respiratory Rate 15 Respiratory Effort Blood Pressure 104/53 L Blood Pressure Mean 70 Pulse Ox 99 Oxygen Delivery Method Room Air Oxygen Flow Rate (L/min) Positive well nourished General Appearance ED: NAD; Negative for pallor HEENT Reports moist mucous membranes normocephalic and atraumatic Eyes PERRL and EOMs intact bilaterally Resp Resp Narrative: Tachypneic but not in respiratory distress. Speaks in full sentences. Cardio regular rate and regular rhythm Neuro oriented x3 Sensorium / Orientation: awake and alert Psych mental status grossly normal Skin General Skin Exam: Negative for jaundice or pallor MDM MDM MDM Narrative Medical decision making narrative: Patient presenting with shortness of breath is initial complaint she stated started having chest pain that was pressure-like when she arrived. I obtained an EKG which is sinus rhythm with ventricular rate of 81 bpm with left bundle branch block. Appears similar to previous EKG from 20 May 2021. Chest x-ray shows no acute cardiopulmonary process is as interpreted by myself and the radiologist does agree. D-dimer was elevated at 1.04. Creatinine 1.18 which is increased from 0.8 her previous lab work. Electrolytes are normal. High-sensitivity troponin was 135 initially. I obtained a CTA of the chest which does not show any pulmonary emboli or dissection but does show scattered groundglass opacities and reticulonodular opacities in the lower lobes which the radiologist read is infectious versus inflammatory. Patient's rapid Covid was negative. I reviewed her previous CTA and these findings were not present. I will send for Covid PCR. Delta troponin is elevated at 163. For this reason I feel the patient needs to be admitted secondary to NSTEMI. Her chest pain is resolved. In addition to this the patient took her lisinopril, carvedilol, Benadryl and a muscle relaxer prior to arrival and her blood pressure which was initially hypertensive is now hypotensive. Her blood pressure went down to as low as 79/50. He did rebound to 104 blood sugar 38. This was discussed with the hospitalist on admission. He did speak with cardiology and they will start heparin drip. Impression: 1. Chest pain 2. NSTEMI Lab Data Attestation: I reviewed the patient's lab results. Labs: Laboratory Results - last 24 hr 05/22/21 05/22/21 05/22/21 19:50 19:50 19:50 WBC 6.3 RBC 4.43 Hgb 13.8 Hct 41.1 MCV 92.8 MCH 31.2 MCHC 33.6 RDW Std Deviation 46.4 H RDW Coeff of Tomi 13.7 Plt Count 238 MPV 10.9 Immature Gran % (Auto) 0.200 Neut % (Auto) 55.2 Lymph % (Auto) 35.6 Powell % (Auto) 7.6 Eos % (Auto) 0.9 Baso % (Auto) 0.5 Absolute Neuts (auto) 3.5 Absolute Lymphs (auto) 2.25 Nucleated RBC % 0 D-Dimer Quant (PE/DVT) 1.04 H* Sodium 136 Potassium 3.5 Chloride 103 Carbon Dioxide 24.0 Anion Gap 9 BUN 27 H Creatinine 1.18 H Estim Creat Clear Calc 48.71 Est GFR (MDRD) Af Amer 62 Est GFR (MDRD) Non-Af 51 L BUN/Creatinine Ratio 22.9 H Glucose 381 H Calcium 9.6 Troponin I High Sens 135 H* B-Natriuretic Peptide 05/22/21 05/22/21 19:50 21:37 WBC RBC Hgb Hct MCV MCH MCHC RDW Std Deviation RDW Coeff of Tomi Plt Count MPV Immature Gran % (Auto) Neut % (Auto) Lymph % (Auto) Powell % (Auto) Eos % (Auto) Baso % (Auto) Absolute Neuts (auto) Absolute Lymphs (auto) Nucleated RBC % D-Dimer Quant (PE/DVT) Sodium Potassium Chloride Carbon Dioxide Anion Gap BUN Creatinine Estim Creat Clear Calc Est GFR (MDRD) Af Amer Est GFR (MDRD) Non-Af BUN/Creatinine Ratio Glucose Calcium Troponin I High Sens 163 H* B-Natriuretic Peptide 103.5 H Radiography Diagnostic Testing: Clinical Impression(s) from Imaging Studies Chest X-Ray 05/22/21 20:04 IMPRESSION: Normal x-ray examination of the chest. Electronically Signed: Pierce Blount MD at 20:51 EST Tel , Service support , Chest CTA 05/22/21 20:30 IMPRESSION: No evidence of acute pulmonary emboli to the segmental level. Few scattered groundglass and peripheral reticulonodular opacities mostly within the lower lobes may be infectious or inflammatory in etiology. 8 mm hypodense nodule in the left thyroid gland. Correlate with dedicated thyroid ultrasound. Electronically Signed: Ramsey Etienne MD at 21:58 EST Tel , Service support , Discharge Plan Triage Chief Complaint: Chest Pain ED Provider: Camilo Ramirez Dx/Rx/DC Orders Prescriptions: No Action ondansetron 4 mg tablet,disintegrating 4 mg PO Q6H PRN (Reason: Nausea) RF: 0 sucralfate 1 gram tablet 1 g PO 4X/DAY PRN (Reason: Constipation) RF: 0 glipizide 10 mg tablet extended release 24hr 10 mg PO BID RF: 0 furosemide 40 mg tablet 40 mg PO DAILY Qty: 90 RF: 3 carvedilol 12.5 mg tablet 6.25 mg PO BID Qty: 120 RF: 3 lisinopril 20 mg tablet 20 mg PO DAILY Qty: 90 RF: 3 tramadol 50 mg tablet 50 mg PO TID PRN (Reason: Pain) RF: 0 omeprazole 20 MG capsule 20 mg PO DAILY Qty: 30 RF: 0 tizanidine 4 MG tablet 4 mg PO QHS RF: 0 atorvastatin 80 mg Tablet 80 mg PO QHS Qty: 60 RF: 2 Brilinta 90 mg Tablet 90 mg PO BID Qty: 180 RF: 2 dapagliflozin 5 mg tablet 5 mg PO DAILY Qty: 60 RF: 3 aspirin 81 mg capsule 81 mg PO DAILY Qty: 60 RF: 3 Primary Care Provider: Margo Tatum
[2021-05-22] MEDS: Aspirin 81 MG TAB.CHEW 324 MG PO (20:08)
[2021-05-22 20:18] LABS: Absolute Lymphocyte Count 2.25 X10^3/uL (0.83-4.51); Absolute Neutrophil Count 3.5 X10^3/uL (2.0-7.7); Basophil# 0.03 X10^3/uL; Basophil% 0.5 % (0-1); Eosinophil# 0.06 X10^3/uL; Eosinophils% 0.9 % (0-5); Hematocrit 41.1 % (37-47); Hemoglobin 13.8 g/dL (12.0-15.0); Lymphocyte # 2.25 X10^3/ul (0.83-4.51); Lymphocyte % 35.6 % (19-41); Mean Corp Hgb Conc 33.6 g/dL (32-36); Mean Corpuscular Hgb 31.2 pg (27.0-32.0); Mean Corpuscular Volume 92.8 fL (81-99); Mean Platelet Vol. 10.9 fl (6.2-12.0); Monocyte# 0.48 X10^3/uL; Monocyte% 7.6 % (0-10); NRBC Flagged by Analyzer 0 % (0-5); Neutrophil # 3.49 X10^3/uL (2.7-7.7); Neutrophil % 55.2 % (47-70); Platelet Count 238 K/mm3 (150-450); RBC Distribution Width CV 13.7 % (11.6-14.6); RBC Distribution Width SD 46.4 fl (35.1-43.9); Red Blood Count 4.43 M/mm3 (4.2-5.4); White Blood Count 6.3 K/mm3 (4.4-11.0)
[2021-05-22 20:28] LABS: D-Dimer Quantitative (DVT/PE) 1.04 FEU/ug/m (0.27-0.49)
--- NOTE | 2021-05-22 20:30 | CT_ITS ---
INDICATION: chest pain EXAMINATION: CTA Chest WO/W Contrast Injection TECHNIQUE: Helically acquired images were obtained of the chest following administration of IV contrast. A radiation dose optimization technique was used for this scan. 3D postprocessing images including MIPS were reviewed. IV Contrast dosage and agent: IV 100mL [id number] COMPARISON: 06/12/2020. FINDINGS: Lungs: Scattered subsegmental atelectasis. Few scattered groundglass and peripheral reticulonodular opacities mostly within the lower lobes. Mediastinum: The cardiomediastinal silhouette is not enlarged. No mediastinal, hilar or axillary adenopathy. Mild aortic arch and coronary artery calcifications. 8 mm hypodense nodule in the left thyroid gland. No obvious filling defect seen within the visualized pulmonary arteries. Pleura: Unremarkable Bones/Soft tissues: Mild scattered degenerative changes of the visualized spine. Upper abdomen: No visualized abnormalities in the upper abdomen. CT/CTA Chest W/WO Contrast IMPRESSION: No evidence of acute pulmonary emboli to the segmental level. Few scattered groundglass and peripheral reticulonodular opacities mostly within the lower lobes may be infectious or inflammatory in etiology. 8 mm hypodense nodule in the left thyroid gland. Correlate with dedicated thyroid ultrasound. Electronically Signed: Ramsey Etienne MD at 21:58 EST Tel , Service support ,
[2021-05-22 20:34] LABS: Anion Gap 9 (5-15); BUN 27 mg/dL (7-18); BUN/Creat Ratio 22.9 RATIO (10-20); Calcium,Total 9.6 mg/dL (8.5-10.1); Chloride 103 mmol/L (98-107); Creatinine, Serum 1.18 mg/dL (0.55-1.02); EST Glomerular Filtration Rate 51 mL/min (>60); Est Glom Filt Rate - Afr Amer 62 mL/min (>60); Estimated Creatinine Clearance 48.71 ml/min; Glucose 381 mg/dL (74-106); Potassium 3.5 mmol/L (3.5-5.1); Sodium Level 136 mmol/L (136-145); Troponin-I HS 135 pg/mL (3.0-54.0)
[2021-05-22 20:38] LABS: BNP,B-Type NATRIURETIC PEPTIDE 103.5 pg/mL (0-100)
[2021-05-22 22:05] LABS: Troponin-I HS 163 pg/mL (3.0-54.0)
--- NOTE | 2021-05-22 22:38 | PCM.HP.STD ---
HPI - General General Date of Admission: 05/22/21 Date of Service: 05/22/21 Chief Complaint: Chest pain HPI Narrative PITO CLARK, is a 50 F who presents to the emergency room at [facility] with chief complaint of chest pain which started approximately 6:00 tonight, patient states she got short of breath and then soon afterwards at 6:50 PM tonight, she started developing chest discomfort which she described as a pressure in the middle of her chest. Patient denied any radiation of the discomfort into her jaw or down her arm. Patient's chest pain went away while she was in the emergency room. Labs were obtained, patient's troponin was initially elevated, her second troponin was slightly elevated further. Labs showed a normal CBC, D-dimer was 1.04, creatinine was 1.18, BUN was 27. Blood glucose was 381. EKG showed a normal sinus rhythm with a left bundle branch block and PACs. Patient has CT of the chest to rule out PE, no evidence of embolism was noted but there was some areas of groundglass appearance in the lower lobes which were scattered. Patient's rapid Covid test was negative. Patient is fully vaccinated against COVID-19. I talked briefly with cardiology, they suggested placing the patient on a heparin drip, patient will be admitted to PCU, cardiac enzymes will be cycled, she will be seen in consultation by cardiology, [facility] Medical History Atherosclerotic heart disease of [place] coronary artery without angina pectoris Benign hypertension Bilateral interstitial pneumonia Chronic low back pain HFrEF (heart failure with reduced ejection fraction) History of non-ST elevation myocardial infarction (NSTEMI) (06/12/20) Hyperglycemia due to type 2 diabetes mellitus Hyperlipidemia Left bundle branch block (LBBB) Non-ischemic cardiomyopathy Nonobstructive atherosclerosis of coronary artery Obesity Status post insertion of nerve stimulator Type 2 diabetes mellitus Home Medications omeprazole 20 mg PO DAILY #30 cap 12/01/18 [Rx Last Taken Unknown] tizanidine 4 mg PO QHS 06/12/20 [History Last Taken Unknown] furosemide 40 mg tablet 40 mg PO DAILY #90 tab 07/11/20 [Rx Last Taken Unknown] glipizide 10 mg tablet, extended release 24 hr 10 mg PO BID tab 07/11/20 [History Last Taken Unknown] ondansetron 4 mg disintegrating tablet 4 mg PO Q6H PRN tab 07/11/20 [History Last Taken Unknown] sucralfate 1 gram tablet 1 g PO 4X/DAY PRN tab 07/11/20 [History Last Taken Unknown] tramadol 50 mg tablet 50 mg PO TID PRN tab 07/11/20 [History Last Taken Unknown] carvedilol 12.5 mg tablet 6.25 mg PO BID #120 tab 03/31/21 [Rx Last Taken Unknown] lisinopril 20 mg tablet 20 mg PO DAILY #90 tab 03/31/21 [Rx Last Taken Unknown] aspirin 81 mg PO DAILY #60 cap 05/20/21 [Rx Last Taken Unknown] atorvastatin 80 mg PO QHS #60 tab 05/20/21 [Rx Last Taken Unknown] dapagliflozin 5 mg PO DAILY #60 tab 05/20/21 [Rx Last Taken Unknown] ticagrelor [Brilinta] 90 mg PO BID #180 tab 05/20/21 [Rx Last Taken Unknown] Allergy/AdvReac Type Severity Reaction Status Date / Time amoxicillin trihydrate AdvReac Vomiting Verified 05/18/21 18:05 [From Augmentin] potassium clavulanate AdvReac Vomiting Verified 05/18/21 18:05 [From Augmentin] Family History Father Myocardial infarction Cancer prostate, leukemia Agent orange exposure Diabetes Sister Diabetes COPD (chronic obstructive pulmonary disease) Surgical History History of back surgery History of cholecystectomy (1991) History of coronary artery stent placement History of hysterectomy History of laparoscopy History of left heart catheterization (06/12/20) History of tonsillectomy Presence of coronary angioplasty implant and graft (~05/19/21) Social History Smoking Status: Former smoker how long ago did patient quit smokin alcohol intake: current alcohol intake frequency: holidays/special occasions only substance use type: does not use caffeine: Yes ROS Constitutional Constitutional: Denies anorexia, change in weight, fever(s), night sweats or weakness Eyes Eyes: Denies blurry vision, change in vision, discharge from eye(s) or eye pain ENT HEENT: Denies abnormal hearing or headache(s) Cardiovascular Cardiovascular: Reports chest pain; Denies claudication, edema, palpitations or rapid heart rate Respiratory/Chest Respiratory/Chest: Reports dyspnea and shortness of breath at rest; Denies cough, hemoptysis or shortness of breath with exertion Gastrointestinal Gastrointestinal: Denies abdominal pain, constipation, diarrhea, hematemesis, hematochezia, melena, nausea or vomiting Genitourinary Genitourinary: Denies dysuria, hematuria, urinary frequency, urinary hesitancy, urinary incontinence or urinary urgency Musculoskeletal Musculoskeletal: Denies back pain, joint pain, joint stiffness, joint swelling, myalgias or neck pain Neurologic Neurologic: Denies abnormal gait, abnormal speech, dizziness, focal weakness, headache(s), loss of vision, numbness, other visual disturbances, paresthesias, syncope or tingling Psychiatric Psychiatric: Denies anxiety, cognitive impairment, depression, irritability, mood swings or suicidal ideation Endocrine Endocrinology: Denies change in body appearance, cold intolerance, excessive sweating, heat intolerance, polydipsia or polyuria Hematologic/Lymphatic Hematologic/Lymphatic: Denies none, anemia, easy bleeding, easy bruising or lymphadenopathy Allergic/Immunologic Allergic/Immunologic: Denies rhinitis, urticaria, eczemia or asthma Vital Signs Vital Signs Vital Signs: 05/22/21 19:37 05/22/21 19:54 05/22/21 20:14 Temperature 96.8 F L Temperature Source Temporal Pulse Rate 85 79 Respiratory Rate 20 H 21 H Respiratory Effort Normal Non-Labored Blood Pressure 114/78 141/111 H Blood Pressure Mean 90 121 Pulse Ox 99 98 97 Oxygen Delivery Method Room Air Nasal Cannula Nasal Cannula Oxygen Flow Rate (L/min) 2 2 05/22/21 21:00 05/22/21 21:12 05/22/21 21:13 Temperature Temperature Source Pulse Rate 70 74 64 Respiratory Rate 12 Respiratory Effort Blood Pressure 80/36 L 89/49 L 79/50 L Blood Pressure Mean 50 62 59 Pulse Ox 97 Oxygen Delivery Method Room Air Oxygen Flow Rate (L/min) 05/22/21 21:31 05/22/21 22:22 Temperature 98.3 F Temperature Source Oral Pulse Rate 70 75 Respiratory Rate 15 18 Respiratory Effort Blood Pressure 104/53 L 107/65 Blood Pressure Mean 70 79 Pulse Ox 99 99 Oxygen Delivery Method Room Air Room Air Oxygen Flow Rate (L/min) Weight Weight: 99.79 kg Body Mass Index (BMI) 37.8 Physical Exam Const alert, oriented x3, no apparent distress and healthy appearing General Appearance: cooperative, well kempt and well developed Orientation / Consciousness: awake, oriented to person, oriented to place and oriented to time HEENT normocephalic, head/scalp atraumatic, hearing grossly normal bilaterally and moist oral mucous membranes Eyes PERRL, EOMs intact bilaterally and conjunctivae normal Neck nuchal rigidity, supple, no JVD, thyroid normal and no carotid bruits General: trachea midline Resp normal respiratory effort, no retractions, no use of accessory muscles and clear to auscultation bilaterally Auscultation: Negative for rales, rhonchi or wheezes Cardio regular rate, regular rhythm, S1 normal heart sound, S2 normal heart sound, no murmurs, no rub and no gallops GI normal to inspection, nondistended, normoactive bowel sounds, soft to palpation, non-tender and non-distended Extremity normal to inspection and no clubbing, cyanosis or edema Skin no rashes or lesions noted General Skin Exam: no breakdown Neuro oriented x3, CN's II-XII intact bilaterally, no focal motor deficits and no sensory deficits noted Sensorium / Orientation: awake and alert Speech: speech normal Psych thought process normal and affect normal Results Lab / Micro Data Result Diagrams: 05/22/21 19:50 05/22/21 19:50 Labs: Laboratory Results - last 24 hr 05/22/21 19:50: WBC 6.3, RBC 4.43, Hgb 13.8, Hct 41.1, MCV 92.8, MCH 31.2, MCHC 33.6, RDW Std Deviation 46.4 H, RDW Coeff of Tomi 13.7, Plt Count 238, MPV 10.9, Immature Gran % (Auto) 0.200, Neut % (Auto) 55.2, Lymph % (Auto) 35.6, [place] % (Auto) 7.6, Eos % (Auto) 0.9, Baso % (Auto) 0.5, Absolute Neuts (auto) 3.5, Absolute Lymphs (auto) 2.25, Nucleated RBC % 0 05/22/21 19:50: D-Dimer Quant (PE/DVT) 1.04 H* 05/22/21 19:50: Sodium 136, Potassium 3.5, Chloride 103, Carbon Dioxide 24.0, Anion Gap 9, BUN 27 H, Creatinine 1.18 H, Estim Creat Clear Calc 48.71, Est GFR (MDRD) Af Amer 62, Est GFR (MDRD) Non-Af 51 L, BUN/Creatinine Ratio 22.9 H, Glucose 381 H, Calcium 9.6, Troponin I High Sens 135 H* 05/22/21 19:50: B-Natriuretic Peptide 103.5 H 05/22/21 21:37: Troponin I High Sens 163 H* Micro: Microbiology 05/22/21 20:10 Nasal Secretion SARS-CoV-2 Antigen (Rapid) - Final Radiology Impression Chest X-Ray 05/22/21 20:04 IMPRESSION: Normal x-ray examination of the chest. Electronically Signed: Pierce Blount MD at 20:51 EST Tel , Service support , Chest CTA 05/22/21 20:30 IMPRESSION: No evidence of acute pulmonary emboli to the segmental level. Few scattered groundglass and peripheral reticulonodular opacities mostly within the lower lobes may be infectious or inflammatory in etiology. 8 mm hypodense nodule in the left thyroid gland. Correlate with dedicated thyroid ultrasound. Electronically Signed: Ramsey Etienne MD at 21:58 EST Tel , Service support , Assessment & Plan Assessment/Plan (1) Non-ST elevation [place] (NSTEMI): PLAN: 1. [id number] will be admitted to PCU, she will be seen in consultation by cardiology, patient will be placed on a heparin drip, cardiac enzymes will be cycled, she will have an echocardiogram performed. #2 unstable angina-see above for treatment plan #3 type 2 diabetes-blood sugars will be monitored, sliding scale insulin will be used #4 nonischemic cardiomyopathy #5 essential hypertension #6 hyperlipidemia #7 atherosclerotic heart disease with recent coronary artery stent placement in May 19, 2021 in the LAD #8 obstructive sleep apnea-noncompliant with use of CPAP #9 elevated creatinine-possibly secondary to dehydration Charges/Coding Visit Charges Inpatient E&M: 31268 Init Hosp L3
[2021-05-22 23:14] LABS: Prothrombin Time (Protime)PT. 12.5 SECONDS (11.7-14.9)
[2021-05-22 23:15] LABS: Partial Thromboplast Time 29.4 Seconds (24.1-36.2)
--- NOTE | 2021-05-22 23:36 | ECHOCS_ITS ---
Reason For Study: CAD/ASHD Procedure This was a 2D Doppler, Color Flow transthoracic echocardiogram. The study was technically difficult. Contrast injection was performed. Exam performed portable in patient room. Left Ventricle Moderately dilated left ventricle. Moderately severe segmental systolic dysfunction (see wall motion). The estimated ejection fraction is 30 %. Septal motion consistent with IVCD. Transmitral doppler flow suggestive of impaired relaxation of left ventricle. Anterio-Basal: Hypokinetic. Infero-Basal: Akinetic. Basal inferoseptal: Severely Hypokinetic. Basal anteroseptal: Hypokinetic. Mid-Anterior : Hypokinetic. Mid-Lateral : Hypokinetic. Mid-Posterior: Severely Hypokinetic. Mid- Inferior: Akinetic. Mid-inferoseptal : Severly Hypokinetic. Mid-anteroseptal : Severely Hypokinetic. [place] : Severely Hypokinetic. Right Ventricle Normal RV size. Normal systolic function. Atria The left atrium is mildly enlarged. Normal right atrium. No doppler evidence for ASD. Mitral Valve There is no mitral annular calcification. Normal mitral valve. Moderate (2+) eccentric mitral valve insufficiency. Tricuspid Valve Normal tricuspid valve. Trivial tricuspid valve insufficiency. Unable to estimate RV systolic pressure/pulmonary artery pressure due to technically difficult study. Aortic Valve Trisinus/trileaflet aortic valve. Normal aortic valve. Pulmonic Valve The pulmonic valve is not well visualized. Trivial pulmonic valve insufficiency. Great Vessels The aortic root is not well visualized. Pericardium/Pleural No pericardial effusion. Medication Diluted definity 4ml given slow IV push to enhance endocardial definition. MMode/2D Measurements & Calculations LVIDd: 5.7 cm IVSd: 1.2 cm LA dimension: 3.9 cm LVIDs: 5.2 cm LVPWd: 1.1 cm FS: 8.2 % LAV(MOD-bp): 37.2 ml LA A4 area: 14.5 cm2 LAV(MOD-bp) Indexed: 18.8 ml/m2 LAV(MOD-sp2): 38.1 ml LAV(MOD-sp4): 34.6 ml Time Measurements MV dec time: 0.24 sec Doppler Measurements & Calculations MV E max toño: 67.4 cm/sec Lat Peak E' Toño: 7.6 cm/sec Med Peak E' Toño: 4.3 cm/sec MV A max toño: 96.5 cm/sec E/E' lat: 8.9 E/E' med: 15.6 MV E/A: 0.70 MV V2 max: 103.4 cm/sec MV P1/2t max toño: 89.1 cm/sec Ao V2 max: 126.2 cm/sec MV max P.3 mmHg MV P1/2t: 69.2 msec Ao max P.4 mmHg MV V2 mean: 59.4 cm/sec MV dec slope: 377.3 cm/sec2 MV mean P.7 mmHg MV V2 VTI: 24.1 cm MVA(P1/2t): 3.2 cm2 LV V1 max: 100.1 cm/sec PA V2 max: 109.1 cm/sec LV V1 max P.0 mmHg ECHO/Echo Complete W/ Contrast Interpretation Summary The study was technically difficult. Contrast injection was performed. Moderately dilated left ventricle. The estimated ejection fraction is 30 %. Septal motion consistent with IVCD. The left atrium is mildly enlarged. Moderate (2+) eccentric mitral valve insufficiency. Trivial tricuspid valve insufficiency. Trivial pulmonic valve insufficiency. Unable to estimate RV systolic pressure/pulmonary artery pressure due to techni satish difficult study. Transmitral doppler flow suggestive of impaired relaxation of left ventricle Ordering Physician: Aidan Staples Referring Physician: Margo Tatum Performed By: Tam Jimenez RCS
[2021-05-23] VITALS (9 sets, daily range): BP systolic 101–141; BP diastolic 46–85; PULSE 71–91; RESP 14–18; TEMP 36.4–36.7; O2SAT 97–100
--- NOTE | 2021-05-23 00:15 | EKG12_ITS ---
Test Reason : CP ADMIT Blood Pressure : / mmHG Vent. Rate : 065 BPM Atrial Rate : 065 BPM P-R Int : 212 ms QRS Dur : 164 ms QT Int : 464 ms P-R-T Axes : 039 -13 044 degrees QTc Int : 482 ms Sinus rhythm with 1st degree A-V block with occasional Premature ventricular complexes Left bundle branch block Abnormal ECG When compared with ECG of 20-MAY-2021 05:30, MANUAL COMPARISON REQUIRED, DATA IS UNCONFIRMED Confirmed by JANAY GEE, JAMEL ([id number]), editorial intern JAYLIN FRANK ([id number]) on 05/26/2021 8:45:21 AM Referred By: DR ORTEGA Confirmed By:JAMEL GUSTAFSON MD
[2021-05-23 00:27] LABS: Troponin-I HS 172 pg/mL (3.0-54.0)
[2021-05-23 00:35] LABS: Bedside Glucose 319 mg/dL (70-110)
[2021-05-23] MEDS: traMADol 50 MG Tablet PO ×2 (00:54→04:57)
--- NOTE | 2021-05-23 02:41 | PCS.PANDOC ---
PANDEMIC DOCUMENTATION INITIATED: Date: 01/19/2021 Time: 190
--- NOTE | 2021-05-23 05:55 | EKG12_ITS ---
Test Reason : AM EKG Blood Pressure : / mmHG Vent. Rate : 073 BPM Atrial Rate : 073 BPM P-R Int : 218 ms QRS Dur : 170 ms QT Int : 482 ms P-R-T Axes : 057 -24 053 degrees QTc Int : 531 ms Sinus rhythm with 1st degree A-V block with occasional Premature ventricular complexes Left bundle branch block Abnormal ECG When compared with ECG of 24-MAY-2021 22:13, MANUAL COMPARISON REQUIRED, DATA IS UNCONFIRMED Confirmed by JANAY GEE, JAMEL ([id number]), newspaper photo editor JAYLIN FRANK ([id number]) on 05/26/2021 12:40:58 PM Referred By: SHANNON Confirmed By:JAMEL GUSTAFSON MD
[2021-05-23] MEDS: Insulin Lispro 100 UNIT/ML INSULN.PEN SC ×4 (06:38→20:48)
[2021-05-23 06:45] LABS: Bedside Glucose 170 mg/dL (70-110)
[2021-05-23 07:03] LABS: Partial Thromboplast Time 60.8 Seconds (24.1-36.2)
[2021-05-23 07:28] LABS: Anion Gap 9 (5-15); BUN 25 mg/dL (7-18); BUN/Creat Ratio 24.8 RATIO (10-20); Calcium,Total 9.5 mg/dL (8.5-10.1); Chloride 104 mmol/L (98-107); Creatinine, Serum 1.01 mg/dL (0.55-1.02); EST Glomerular Filtration Rate 61 mL/min (>60); Est Glom Filt Rate - Afr Amer 74 mL/min (>60); Glucose 167 mg/dL (74-106); Potassium 3.6 mmol/L (3.5-5.1); Sodium Level 138 mmol/L (136-145)
[2021-05-23] MEDS: glipiZIDE XL 5 MG Tablet 10 MG PO ×2 (09:16→20:49)
[2021-05-23] MEDS: Aspirin 81 MG TAB.CHEW PO (09:16)
[2021-05-23] MEDS: Carvedilol 6.25 MG Tablet PO ×2 (09:16→20:49)
[2021-05-23] MEDS: Empagliflozin 10 MG Tablet PO (09:16)
[2021-05-23] MEDS: TICAGRELOR 90 MG TABLET PO ×2 (09:16→20:49)
[2021-05-23] MEDS: Lisinopril 20 MG Tablet PO (09:17)
[2021-05-23] MEDS: Pantoprazole Sodium 20 MG Tablet PO (09:17)
[2021-05-23] MEDS: Furosemide 40 MG Tablet PO (09:17)
[2021-05-23 12:03] LABS: Partial Thromboplast Time 67.2 Seconds (24.1-36.2)
--- NOTE | 2021-05-23 12:03 | PCM.CONS.C ---
Assessment & Plan Assessment/Plan (1) Non-ST elevation ME (NSTEMI): PLAN: The patient appears to experience a recent non-ST segment elevation ME. She presents back now for recurrent symptoms similar to what she had prior to her recent event and recent LAD PCI and has been noted to have cardiac enzymes which are once again increasing. At the present time she is being monitored. Her cardiac rhythm and enzymes are being followed. An echocardiogram has been requested to further evaluate her left ventricular wall motion and systolic function. She is continuing medical management with the addition of IV heparin. She will need to be considered for repeat evaluation in the cardiac catheterization laboratory for the possibility of in-stent restenosis. (2) Atherosclerotic heart disease of [place] coronary artery without angina pectoris: PLAN: She does have a history of CAD which appears to have progressed from June of this year to May of this year. She is continuing medical management. She underwent recent LAD PCI. Again based upon her clinical scenario she will need to be considered for repeat diagnostic cardiac catheterization for the possibility of in-stent restenosis. (3) History of coronary artery stent placement: PLAN: She underwent recent LAD PCI. She presents back with recurrent symptoms and elevating troponin I levels. She has been treated medically. She will be considered for repeat diagnostic cardiac catheterization. (4) Cardiomyopathy, ischemic: PLAN: She does appear to have a history of diminished LV systolic function. She has been treated medically and has recently received percutaneous revascularization therapy. Her left ventricular wall motion systolic function will be followed with noninvasive studies at this time. (5) HFrEF (heart failure with reduced ejection fraction): PLAN: She does not appear to have acute on chronic systolic mediated CHF. She will need to be monitored for any significant change in continue medical management/adjustment. (6) Hyperlipidemia: PLAN: She should continue risk factor evaluation and care. (7) Benign hypertension: PLAN: Her blood pressure will be followed with her medicines adjusted accordingly. (8) Type 2 diabetes mellitus: PLAN: She will continue evaluation care per internal medicine. (9) Obesity: PLAN: decrease her weight which would benefit her multiple cardiovascular risk factors/cardiac status.She does need to attempt to adjust her diet, her activity level, and attempt to Addt'l Comments The patient's case has been discussed and reviewed with Dr. Staples. This note was generated using a voice recognition system and there may be incorrect words, spelling or punctuation that were not noted when reviewing the office note prior to saving. HPI Consult Data Date of Consult: 05/23/21 HPI Narrative HPI Narrative: PITO CLARK, is a 50 year old white female who presents for cardiovascular consultation based upon concerns of recurrent chest discomfort, recurrent abnormal troponin I levels, superimposed upon a recent diagnosis of CAD leading to LAD PCI superimposed upon a history of hyperlipidemia, hypertension, and diabetes mellitus. The patient underwent recent cardiovascular consultation on 05-19-2021 for concerns of an acute non-ST segment elevation ME scenario. This led to diagnostic cardiac catheterization which led to the finding of an LAD mid 95% stenosis for which she underwent LAD PCI/BEATRICE. She was also noted to have what appeared to be diminished LV systolic function with a reported LVEF of 35 to 40%. She continued medical therapy and was eventually released home. She states that yesterday she had recurrent chest discomfort with respect to chest pressure/heaviness as if someone was sitting on my chest similar to what she had before her recent PCI. She states this was associated with shortness of breath and dyspnea. She did not necessarily have ongoing nausea, emesis, or diaphoresis. There was no report of loss of consciousness. She presented back to [facility] for reevaluation. It was noted that her cardiac enzymes which appeared to have peaked on 05-19-2021 07/14/1960 had declined to 135. However she had repeat enzymes performed which subsequently increased to 163 and then subsequently increased to 172. She had an ECG performed which demonstrated sinus rhythm with a first-degree AV block and a left bundle branch block pattern (she is noted to have a history of a left bundle branch block). She also underwent further evaluation for possible thromboembolic disease with a chest CTA. This was reported as negative for thromboembolic disease or great vessel disease. She was placed in the PCU for further evaluation and care. She was continued on medical therapy including the addition of IV heparin. She notes overall she is feeling better at this time. [facility] Medical History (Updated 05/23/21 @ 12:[address] Gustavo Leslie MD) Atherosclerotic heart disease of [place] coronary artery without angina pectoris Benign hypertension Bilateral interstitial pneumonia Cardiomyopathy, ischemic Chronic low back pain HFrEF (heart failure with reduced ejection fraction) History of non-ST elevation myocardial infarction (NSTEMI) (06/12/20) Hyperglycemia due to type 2 diabetes mellitus Hyperlipidemia Left bundle branch block (LBBB) Non-ischemic cardiomyopathy Nonobstructive atherosclerosis of coronary artery Obesity Status post insertion of nerve stimulator Type 2 diabetes mellitus Home Medications omeprazole 20 mg PO DAILY #30 cap 12/01/18 [Rx Last Taken Unknown] tizanidine 4 mg PO QHS 06/12/20 [History Last Taken Unknown] furosemide 40 mg tablet 40 mg PO DAILY #90 tab 07/11/20 [Rx Last Taken Unknown] glipizide 10 mg tablet, extended release 24 hr 10 mg PO BID tab 07/11/20 [History Last Taken Unknown] ondansetron 4 mg disintegrating tablet 4 mg PO Q6H PRN tab 07/11/20 [History Last Taken Unknown] sucralfate 1 gram tablet 1 g PO 4X/DAY PRN tab 07/11/20 [History Last Taken Unknown] tramadol 50 mg tablet 50 mg PO TID PRN tab 07/11/20 [History Last Taken Unknown] carvedilol 12.5 mg tablet 6.25 mg PO BID #120 tab 03/31/21 [Rx Last Taken Unknown] lisinopril 20 mg tablet 20 mg PO DAILY #90 tab 03/31/21 [Rx Last Taken Unknown] aspirin 81 mg PO DAILY #60 cap 05/20/21 [Rx Last Taken Unknown] atorvastatin 80 mg PO QHS #60 tab 05/20/21 [Rx Last Taken Unknown] dapagliflozin 5 mg PO DAILY #60 tab 05/20/21 [Rx Last Taken Unknown] ticagrelor [Brilinta] 90 mg PO BID #180 tab 05/20/21 [Rx Last Taken Unknown] Allergy/AdvReac Type Severity Reaction Status Date / Time amoxicillin trihydrate AdvReac Vomiting Verified 05/18/21 18:05 [From Augmentin] potassium clavulanate AdvReac Vomiting Verified 05/18/21 18:05 [From Augmentin] Family History Father Myocardial infarction Cancer prostate, leukemia Agent orange exposure Diabetes Sister Diabetes COPD (chronic obstructive pulmonary disease) Surgical History History of back surgery History of cholecystectomy (1991) History of coronary artery stent placement History of hysterectomy History of laparoscopy History of left heart catheterization (06/12/20) History of tonsillectomy Presence of coronary angioplasty implant and graft (~05/19/21) Social History Smoking Status: Former smoker how long ago did patient quit smokin alcohol intake: current alcohol intake frequency: holidays/special occasions only substance use type: does not use caffeine: Yes ROS Constitutional Constitutional: Reports as per HPI Eyes Eyes: Reports as per HPI ENT HEENT: Reports as per HPI Cardiovascular Cardiovascular: Reports chest pain, chest pain at rest, dyspnea and dyspnea at rest Respiratory/Chest Respiratory/Chest: Reports dyspnea Gastrointestinal Gastrointestinal: Reports as per HPI Genitourinary Genitourinary: Reports as per HPI Musculoskeletal Musculoskeletal: Reports as per HPI Integumentary Integumentary: Reports as per HPI Neurologic Neurologic: Reports as per HPI Physical Exam Const alert, oriented x3 and no apparent distress Orientation / Consciousness: awake HEENT normocephalic, head/scalp atraumatic and hearing grossly normal bilaterally Eyes PERRL, EOMs intact bilaterally and conjunctivae normal Neck full ROM, supple and no JVD Resp clear to auscultation bilaterally Cardio regular rate, regular rhythm, S1 normal heart sound and S2 normal heart sound GI normal to inspection, nondistended, normoactive bowel sounds Extremity no pedal edema Skin Skin Narrative: Right radial artery cardiac catheterization site: Resolving ecchymoses Neuro oriented x3, moves all extremities, no focal motor deficits and no sensory deficits noted Psych mental status grossly normal Risk Stratification Risk Stratification Applicable: Yes Age >/= 65: No >/= 3 CAD Risk Factors (HTN, HLD, DM, family hx of CAD, or current smoker): Yes Aspirin Use in the Past 7 Days: Yes Severe Angina (>/= episodes in 24 hours): Yes EKG ST Changes >/= 0.5mm: No Positive Cardiac Marker: Yes AMIE Risk Stratification Score: 4 AMIE % Risk: 20% Risk Procedure Criteria Type of Procedure Procedure Type: Elective Elective Risks - COVID COVID Risk Discussion: The surgeon/proceduralist and patient have discussed in detail the risk of exposure to and/or potential harm posed by the COVID-19 virus with having a surgery/procedure at this time versus the risk of delaying the surgery/procedure. It is not possible to know either the risk of delaying the surgery or procedure or chance of getting an infection with perfect accuracy, but a joint decision was made between the patient and the surgeon/proceduralist to proceed at this time with the scheduled surgery/procedure as indicated on the consent form. Objective Data Vital Signs: Vital Signs Temp Pulse Resp BP Pulse Ox 97.9 F 73 14 120/46 L 97 05/23/21 09:12 05/23/21 09:12 05/23/21 09:12 05/23/21 09:12 05/23/21 09:12 Oxygen Flow Rate (L/min) 2 Oxygen Delivery Method Room Air Weight: 207 lb 7.28 oz Body Mass Index (BMI) 35.6 Intake & Output: Intake and Output for Last 24 Hours 05/21/21 05/22/21 05/23/21 23:59 23:59 23:59 Intake Total 540 / 540 Balance 540 / 540 Lab / Micro Data Result Diagrams: 05/22/21 19:50 05/23/21 05:55 Labs: Laboratory Results - last 24 hr 05/22/21 19:50: WBC 6.3, RBC 4.43, Hgb 13.8, Hct 41.1, MCV 92.8, MCH 31.2, MCHC 33.6, RDW Std Deviation 46.4 H, RDW Coeff of Tomi 13.7, Plt Count 238, MPV 10.9, Immature Gran % (Auto) 0.200, Neut % (Auto) 55.2, Lymph % (Auto) 35.6, [place] % (Auto) 7.6, Eos % (Auto) 0.9, Baso % (Auto) 0.5, Absolute Neuts (auto) 3.5, Absolute Lymphs (auto) 2.25, Nucleated RBC % 0 05/22/21 19:50: D-Dimer Quant (PE/DVT) 1.04 H* 05/22/21 19:50: Sodium 136, Potassium 3.5, Chloride 103, Carbon Dioxide 24.0, Anion Gap 9, BUN 27 H, Creatinine 1.18 H, Estim Creat Clear Calc 48.71, Est GFR (MDRD) Af Amer 62, Est GFR (MDRD) Non-Af 51 L, BUN/Creatinine Ratio 22.9 H, Glucose 381 H, Calcium 9.6, Troponin I High Sens 135 H* 05/22/21 19:50: B-Natriuretic Peptide 103.5 H 05/22/21 19:50: PT 12.5, INR 1.0, APTT 29.4 05/22/21 21:37: Troponin I High Sens 163 H* 05/22/21 22:08: COVID-19 (ROSALIA) Not Detected 05/22/21 23:42: POC Glucose 319 H 05/22/21 23:55: Troponin I High Sens 172 H* 05/23/21 05:55: Sodium 138, Potassium 3.6, Chloride 104, Carbon Dioxide 25.0, Anion Gap 9, BUN 25 H, Creatinine 1.01, Estim Creat Clear Calc 56.90, Est GFR (MDRD) Af Amer 74, Est GFR (MDRD) Non-Af 61, BUN/Creatinine Ratio 24.8 H, Glucose 167 H, Calcium 9.5 05/23/21 05:55: APTT 60.8 H 05/23/21 06:37: POC Glucose 170 H Micro: Microbiology 05/22/21 20:10 Nasal Secretion SARS-CoV-2 Antigen (Rapid) - Final Cardiology Labs/Tests 05/22/21 19:50: WBC 6.3, RBC 4.43, Hgb 13.8, Hct 41.1, MCV 92.8, MCH 31.2, MCHC 33.6, Plt Count 238, MPV 10.9, Immature Gran % (Auto) 0.200, Neut % (Auto) 55.2, Lymph % (Auto) 35.6, [place] % (Auto) 7.6, Eos % (Auto) 0.9, Baso % (Auto) 0.5, Absolute Neuts (auto) 3.5, Nucleated RBC % 0 05/22/21 19:50: D-Dimer Quant (PE/DVT) 1.04 H* 05/22/21 19:50: Sodium 136, Potassium 3.5, Chloride 103, Carbon Dioxide 24.0, Anion Gap 9, BUN 27 H, Creatinine 1.18 H, Est GFR (MDRD) Af Amer 62, Est GFR (MDRD) Non-Af 51 L, BUN/Creatinine Ratio 22.9 H, Glucose 381 H, Calcium 9.6 05/22/21 19:50: B-Natriuretic Peptide 103.5 H 05/22/21 19:50: PT 12.5, INR 1.0, APTT 29.4 05/23/21 05:55: Sodium 138, Potassium 3.6, Chloride 104, Carbon Dioxide 25.0, Anion Gap 9, BUN 25 H, Creatinine 1.01, Est GFR (MDRD) Af Amer 74, Est GFR (MDRD) Non-Af 61, BUN/Creatinine Ratio 24.8 H, Glucose 167 H, Calcium 9.5 05/23/21 05:55: APTT 60.8 H Rhythm: Sinus rhythm EKG: As noted above ECHO: 06-12-2020 Interpretation Summary Normal LV size. The estimated ejection fraction is 35 %. There is moderate global hypokinesis of the left ventricle. Mid-Inferior: Severely Hypokinetic. Stage 1 diastolic dysfunction. Moderate concentric left ventricular hypertrophy. Cardiac catheterization: 06-12-2020 CONCLUSIONS Mild to moderate diffuse coronary artery disease especially involving the left anterior descending artery system. RECOMMENDATIONS Medical therapy DESCRIPTION OF PROCEDURE The patient arrived to the procedure lab. The risks and benefits of the procedure as well as a full description of our services here and current unavailability of surgical backup were fully explained to the patient and/or their significant other prior to the catheterization. The Timeout was completed, verifying the correct patient and procedure. The patient's procedural site was prepped and draped in the usual fashion. Local anesthetic was given subcutaneously to right radial region with Lidocaine 2%. Using a modified Seldinger technique, arterial access was obtained via the right radial artery, a 6Fr sheath was inserted. Right Coronary Artery selective angiography was then performed in multiple views using a 5 Fr. 4.0 [place] catheter. Left Coronary Artery selective angiography was performed in multiple views using a 5 Fr. 4.0 [place] catheter. Left Ventriculography was performed in SMALL projection using a 5 Fr. Pigtail catheter. LV to AO pullback pressures were then recorded.The arterial sheath was pulled and a TR Band was applied for hemostasis CORONARY ANGIOGRAPHY DOMINANCE: Right Dominant LEFT HEART ASSESSMENT Left Ventricular Ejection Fraction: by LV Gram 40 % Global Hypokinesis - Mild Depressed Left Ventricular systolic function LEFT MAIN: Angiographically normal LEFT ANTERIOR DESCENDING ARTERY: MID LAD: Moderate luminal irregularities up to 50% CIRCUMFLEX ARTERY: Mild luminal irregularities RIGHT CORONARY ARTERY: Mild luminal irregularities Cardiac Cath: 05-19-2021 CONCLUSIONS High-grade mid LAD stenosis with mild disease noted in the circumflex artery and right coronary artery. RECOMMENDATIONS Referred for immediate PCI DESCRIPTION OF PROCEDURE The patient arrived to the procedure lab. The risks and benefits of the procedure as well as a full description of our services here and current unavailability of surgical backup were fully explained to the patient and/or their significant other prior to the catheterization. The Timeout was completed, verifying the correct patient and procedure. The patient's procedural site was prepped and draped in the usual fashion. Local anesthetic was given subcutaneously to right radial region with Lidocaine 2%. Using a modified Seldinger technique, arterial access was obtained via the right radial artery, a 6Fr sheath was inserted. Left Coronary Artery selective angiography was performed in multiple views using a 5 Fr. 4.0 [place] catheter. Right Coronary Artery selective angiography was then performed in multiple views using a 5 Fr. JR 5 catheter. CORONARY ANGIOGRAPHY DOMINANCE: Right Dominant LEFT HEART ASSESSMENT Left Ventricular Ejection Fraction: by Echo 40 % LEFT MAIN: Angiographically normal LEFT ANTERIOR DESCENDING ARTERY: MID LAD: 95 % Stenosis CIRCUMFLEX ARTERY: Mild luminal irregularities RIGHT CORONARY ARTERY: Mild luminal irregularities PCI: 05-19-2021 LAD: Mid: [facility] MR BEATRICE 2.5x15 Radiography Diagnostic Testing: Radiology Impression Chest X-Ray 05/22/21 20:04 IMPRESSION: Normal x-ray examination of the chest. Electronically Signed: Pierce Blount MD at 20:51 EST Tel , Service support , Chest CTA 05/22/21 20:30 IMPRESSION: No evidence of acute pulmonary emboli to the segmental level. Few scattered groundglass and peripheral reticulonodular opacities mostly within the lower lobes may be infectious or inflammatory in etiology. 8 mm hypodense nodule in the left thyroid gland. Correlate with dedicated thyroid ultrasound. Electronically Signed: Ramsey Etienne MD at 21:58 EST Tel , Service support ,
--- NOTE | 2021-05-23 12:22 | PCM.PN.HOSP ---
Documented by User: Cristina Ibarra NP-C 05/23/21 12:30 Subjective Subjective Patient seen and examined. Patient lying in bed no distress noted, undergoing echocardiogram. Objective Data Objective Data Vital Signs: Vital Signs Temp Pulse Resp BP Pulse Ox 97.9 F 73 14 120/46 L 97 05/23/21 09:12 05/23/21 09:12 05/23/21 09:12 05/23/21 09:12 05/23/21 09:12 Oxygen Flow Rate (L/min) 2 Oxygen Delivery Method Room Air Weight: 207 lb 7.28 oz Body Mass Index (BMI) 35.6 Intake & Output: Intake and Output for Last 24 Hours 05/21/21 05/22/21 05/23/21 23:59 23:59 23:59 Intake Total 540 / 540 Balance 540 / 540 Lab / Micro Data Result Diagrams: 05/22/21 19:50 05/23/21 05:55 Labs: Laboratory Results - last 24 hr 05/22/21 19:50: WBC 6.3, RBC 4.43, Hgb 13.8, Hct 41.1, MCV 92.8, MCH 31.2, MCHC 33.6, RDW Std Deviation 46.4 H, RDW Coeff of Tomi 13.7, Plt Count 238, MPV 10.9, Immature Gran % (Auto) 0.200, Neut % (Auto) 55.2, Lymph % (Auto) 35.6, [place] % (Auto) 7.6, Eos % (Auto) 0.9, Baso % (Auto) 0.5, Absolute Neuts (auto) 3.5, Absolute Lymphs (auto) 2.25, Nucleated RBC % 0 05/22/21 19:50: D-Dimer Quant (PE/DVT) 1.04 H* 05/22/21 19:50: Sodium 136, Potassium 3.5, Chloride 103, Carbon Dioxide 24.0, Anion Gap 9, BUN 27 H, Creatinine 1.18 H, Estim Creat Clear Calc 48.71, Est GFR (MDRD) Af Amer 62, Est GFR (MDRD) Non-Af 51 L, BUN/Creatinine Ratio 22.9 H, Glucose 381 H, Calcium 9.6, Troponin I High Sens 135 H* 05/22/21 19:50: B-Natriuretic Peptide 103.5 H 05/22/21 19:50: PT 12.5, INR 1.0, APTT 29.4 05/22/21 21:37: Troponin I High Sens 163 H* 05/22/21 22:08: COVID-19 (ROSALIA) Not Detected 05/22/21 23:42: POC Glucose 319 H 05/22/21 23:55: Troponin I High Sens 172 H* 05/23/21 05:55: Sodium 138, Potassium 3.6, Chloride 104, Carbon Dioxide 25.0, Anion Gap 9, BUN 25 H, Creatinine 1.01, Estim Creat Clear Calc 56.90, Est GFR (MDRD) Af Amer 74, Est GFR (MDRD) Non-Af 61, BUN/Creatinine Ratio 24.8 H, Glucose 167 H, Calcium 9.5 05/23/21 05:55: APTT 60.8 H 05/23/21 06:37: POC Glucose 170 H 05/23/21 11:43: APTT 67.2 H Micro: Microbiology 05/22/21 20:10 Nasal Secretion SARS-CoV-2 Antigen (Rapid) - Final Radiography Diagnostic Testing: Radiology Impression Chest X-Ray 05/22/21 20:04 IMPRESSION: Normal x-ray examination of the chest. Electronically Signed: Pierce Blount MD at 20:51 EST Tel , Service support , Chest CTA 05/22/21 20:30 IMPRESSION: No evidence of acute pulmonary emboli to the segmental level. Few scattered groundglass and peripheral reticulonodular opacities mostly within the lower lobes may be infectious or inflammatory in etiology. 8 mm hypodense nodule in the left thyroid gland. Correlate with dedicated thyroid ultrasound. Electronically Signed: Ramsey Etienne MD at 21:58 EST Tel , Service support , Physical Exam Const alert, oriented x3 and no apparent distress HEENT head/scalp atraumatic Head and Scalp: normocephalic Eyes conjunctivae normal and no scleral icterus Neck full ROM and supple Resp normal respiratory effort, normal air movement and clear to auscultation bilaterally Effort and Inspection: able to speak in complete sentences and symmetric chest movement Cardio regular rate, regular rhythm, S1 normal heart sound and S2 normal heart sound GI normal to inspection, nondistended, normoactive bowel sounds, soft to palpation and non-tender Extremity normal to inspection, full ROM and no clubbing, cyanosis or edema Peripheral Pulses: Yes pulses 2+ throughout Skin no rashes or lesions noted, no wounds and skin turgor normal Neuro oriented x3, moves all extremities, no focal motor deficits and no sensory deficits noted Sensorium / Orientation: awake and alert Psych affect normal Assessment & Plan Assessment/Plan (1) Cardiomyopathy, ischemic: (2) HFrEF (heart failure with reduced ejection fraction): (3) Non-ST elevation [place] (NSTEMI): PLAN: Patient is a 50-year old female who presents with complaints of back pain and pressure. Patient has elevated cardiac enzymes which are trending up. Patient is being followed by cardiology. 1. Non-STEMI -Continue heparin drip -Echocardiogram complete -Plan for patient to go for cardiac catheterization on Tuesday per Dr. Leslie -Patient had coronary stent placed May 19, 2021 to the LAD 2. Unstable angina -see #1 3. Diabetes mellitus type 2 -AC at bedtime blood sugars with sliding scale insulin ordered 4. Obesity -Lifestyle modifications encouraged DVT prophylaxis-Heparin drip This patient was seen by CARMEN Delaney under the supervision of Dr. Steele. Documented by User: Dr. Francine Steele MD 05/23/21 16:14 Objective Data Lab / Micro Data Result Diagrams: 05/22/21 19:50 05/23/21 05:55 Charges/Coding Addendum Addendum: Patient seen by Cristina MORALES under my supervision Patient seen and examined. She had no complaints. Her chest pain had improved. Review of systems otherwise negative. She just had a stent placed about 4 days ago. She is on heparin drip. O/E: Const alert, oriented x3 and no apparent distress, morbidly obese HEENT head/scalp atraumatic Head and Scalp: normocephalic Eyes conjunctivae normal and no scleral icterus Neck full ROM and supple Resp normal respiratory effort, normal air movement and clear to auscultation bilaterally Effort and Inspection: able to speak in complete sentences and symmetric chest movement Cardio regular rate, regular rhythm, S1 normal heart sound and S2 normal heart sound GI normal to inspection, nondistended, normoactive bowel sounds, soft to palpation and non-tender Extremity normal to inspection, full ROM and no clubbing, cyanosis or edema Peripheral Pulses: Yes pulses 2+ throughout Skin no rashes or lesions noted, no wounds and skin turgor normal Neuro oriented x3, moves all extremities, no focal motor deficits and no sensory deficits noted Sensorium / Orientation: awake and alert Psych affect normal plan is to continue heparin drip. Had a coronary stent placed on May 19 to the LAD. Started having chest pain subsequently and this has persisted. For cardiac cath on Tuesday. 2D echo showed moderately dilated left ventricle and estimated EF of 30%. Rest as per Cristina Ibarra NP-Norris's notes, which I have reviewed and endorsed. Visit Charges Inpatient E&M: 67298 Subs Hosp L3
[2021-05-23 12:35] LABS: Bedside Glucose 213 mg/dL (70-110)
--- NOTE | 2021-05-23 14:50 | CASEMGMT ---
Readmission chart review: 05/18-05/20/21 NSTEMI 05/22/21-current NSTEMI, unstable angina Pt presented 1st visit with chest pain for several hours w/ significant hx CAD which was dx's via heart cath in March. Pt taken for heart cath this visit and had high grade mid LAD stenosis and referred for immediate PCI. Pt also had mild disease in the circumflex and RCA. Pt was placed on Brilinta at discharge. Pt returned to [facility] ED on 05/22/21 for chest pain and was admitted again for NSTEMI and unstable angina. Cardio c/s complete and plan is for repeat heart cath on 05/25/21 unless needs to be completed earlier as emergent cath. CM to follow for any further discharge planning/needs. Tang KRISHNAN CM
[2021-05-23 16:25] LABS: Bedside Glucose 218 mg/dL (70-110)
[2021-05-23] MEDS: traMADol 50 MG Tablet 100 MG PO (16:35)
[2021-05-23] MEDS: tiZANidine HCl 2 MG Tablet 4 MG PO (20:49)
[2021-05-23] MEDS: Atorvastatin Calcium 80 MG Tablet PO (20:49)
[2021-05-23] MEDS: Temazepam 15 MG Capsule PO (20:54)
[2021-05-23 21:11] LABS: Bedside Glucose 163 mg/dL (70-110)
[2021-05-24] VITALS (12 sets, daily range): BP systolic 82–120; BP diastolic 36–72; PULSE 72–96; RESP 16–18; TEMP 36.3–36.8; O2SAT 97–100
[2021-05-24] MEDS: Insulin Lispro 100 UNIT/ML INSULN.PEN SC ×4 (06:40→20:44)
[2021-05-24 06:48] LABS: Absolute Lymphocyte Count 3.03 X10^3/uL (0.83-4.51); Absolute Neutrophil Count 3.2 X10^3/uL (2.0-7.7); Basophil# 0.03 X10^3/uL; Basophil% 0.4 % (0-1); Eosinophil# 0.06 X10^3/uL; Eosinophils% 0.9 % (0-5); Hematocrit 41.3 % (37-47); Hemoglobin 13.5 g/dL (12.0-15.0); Lymphocyte # 3.03 X10^3/ul (0.83-4.51); Lymphocyte % 45.2 % (19-41); Mean Corp Hgb Conc 32.7 g/dL (32-36); Mean Corpuscular Hgb 30.2 pg (27.0-32.0); Mean Corpuscular Volume 92.4 fL (81-99); Monocyte# 0.42 X10^3/uL; Monocyte% 6.3 % (0-10); NRBC Flagged by Analyzer 0 % (0-5); Neutrophil # 3.16 X10^3/uL (2.7-7.7); Neutrophil % 47.1 % (47-70); Platelet Count 231 K/mm3 (150-450); RBC Distribution Width CV 13.9 % (11.6-14.6); RBC Distribution Width SD 47.6 fl (35.1-43.9); Red Blood Count 4.47 M/mm3 (4.2-5.4); White Blood Count 6.7 K/mm3 (4.4-11.0)
[2021-05-24 06:50] LABS: Bedside Glucose 206 mg/dL (70-110)
[2021-05-24 06:59] LABS: Partial Thromboplast Time 65.8 Seconds (24.1-36.2)
[2021-05-24 07:38] LABS: Anion Gap 13 (5-15); BUN 30 mg/dL (7-18); BUN/Creat Ratio 23.1 RATIO (10-20); Calcium,Total 9.6 mg/dL (8.5-10.1); Chloride 101 mmol/L (98-107); EST Glomerular Filtration Rate 46 mL/min (>60); Est Glom Filt Rate - Afr Amer 55 mL/min (>60); Estimated Creatinine Clearance 44.21 ml/min; Glucose 202 mg/dL (74-106); Potassium 3.7 mmol/L (3.5-5.1); Sodium Level 137 mmol/L (136-145)
[2021-05-24] MEDS: TICAGRELOR 90 MG TABLET PO ×2 (09:01→20:45)
[2021-05-24] MEDS: Carvedilol 6.25 MG Tablet PO ×2 (09:01→20:45)
[2021-05-24] MEDS: Lisinopril 20 MG Tablet PO (09:01)
[2021-05-24] MEDS: glipiZIDE XL 5 MG Tablet 10 MG PO ×2 (09:01→20:45)
[2021-05-24] MEDS: Furosemide 40 MG Tablet PO (09:02)
[2021-05-24] MEDS: Empagliflozin 10 MG Tablet PO (09:02)
[2021-05-24] MEDS: Aspirin 81 MG TAB.CHEW PO (09:02)
[2021-05-24] MEDS: Pantoprazole Sodium 20 MG Tablet PO (09:02)
[2021-05-24] MEDS: 0.9% Saline Lock 10 ML Syringe IV ×2 (09:06→10:50)
[2021-05-24] MEDS: Ondansetron 4 MG/2 ML Vial IV (09:06)
[2021-05-24 09:15] LABS: Troponin-I HS 104 pg/mL (3.0-54.0)
--- NOTE | 2021-05-24 09:41 | PN.HOSP_ITS ---
Documented by User: Cristina Ibarra NP-C 05/24/21 09:48 Subjective Subjective Seen and examined. Patient lying in bed no distress noted. Patient states that she is just tired however denies any back or chest pain at this time. Objective Data Objective Data Vital Signs: Vital Signs Temp Pulse Resp BP Pulse Ox 98.0 F 78 16 114/50 L 97 05/24/21 09:01 05/24/21 09:01 05/24/21 09:01 05/24/21 09:01 05/24/21 09:01 Oxygen Flow Rate (L/min) 2 Oxygen Delivery Method Room Air Weight: 207 lb 7.28 oz Body Mass Index (BMI) 35.6 Intake & Output: Intake and Output for Last 24 Hours 05/22/21 05/23/21 05/24/21 23:59 23:59 23:59 Intake Total 1503.83 / 1623.83 120 / 120 Balance 1503.83 / 1623.83 120 / 120 Lab / Micro Data Result Diagrams: 05/24/21 05:20 05/24/21 05:20 Labs: Laboratory Results - last 24 hr 05/23/21 11:43: APTT 67.2 H 05/23/21 11:44: POC Glucose 213 H 05/23/21 16:07: POC Glucose 218 H 05/23/21 19:40: APTT 63.0 H 05/23/21 20:45: POC Glucose 163 H 05/24/21 05:20: WBC 6.7, RBC 4.47, Hgb 13.5, Hct 41.3, MCV 92.4, MCH 30.2, MCHC 32.7, RDW Std Deviation 47.6 H, RDW Coeff of Tomi 13.9, Plt Count 231, MPV 11.0, Immature Gran % (Auto) 0.100, Neut % (Auto) 47.1, Lymph % (Auto) 45.2 H, [place] % (Auto) 6.3, Eos % (Auto) 0.9, Baso % (Auto) 0.4, Absolute Neuts (auto) 3.2, Absolute Lymphs (auto) 3.03, Nucleated RBC % 0 05/24/21 05:20: Sodium 137, Potassium 3.7, Chloride 101, Carbon Dioxide 23.0, Anion Gap 13, BUN 30 H, Creatinine 1.30 H, Estim Creat Clear Calc 44.21, Est GFR (MDRD) Af Amer 55 L, Est GFR (MDRD) Non-Af 46 L, BUN/Creatinine Ratio 23.1 H, Glucose 202 H, Calcium 9.6 05/24/21 05:20: APTT 65.8 H 05/24/21 05:20: Troponin I High Sens 104 H 05/24/21 06:39: POC Glucose 206 H Micro: Microbiology 05/22/21 20:10 Nasal Secretion SARS-CoV-2 Antigen (Rapid) - Final Radiography Diagnostic Testing: Radiology Impression Echocardiogram 05/22/21 23:36 Interpretation Summary The study was technically difficult. Contrast injection was performed. Moderately dilated left ventricle. The estimated ejection fraction is 30 %. Septal motion consistent with IVCD. The left atrium is mildly enlarged. Moderate (2+) eccentric mitral valve insufficiency. Trivial tricuspid valve insufficiency. Trivial pulmonic valve insufficiency. Unable to estimate RV systolic pressure/pulmonary artery pressure due to vaughn hnically difficult study. Transmitral doppler flow suggestive of impaired relaxation of left ventricle Ordering Physician: Aidan Staples Referring Physician: Margo Tatum Performed By: Tam Jimenez RCS Physical Exam Const alert, oriented x3, no apparent distress and healthy appearing General Appearance: cooperative, well kempt and well developed HEENT normocephalic, head/scalp atraumatic and moist oral mucous membranes Eyes conjunctivae normal and no scleral icterus Neck full ROM, nuchal rigidity, supple, no JVD, thyroid normal and no carotid bruits General: trachea midline Resp normal respiratory effort, normal air movement and clear to auscultation bilaterally Effort and Inspection: able to speak in complete sentences and symmetric chest movement Cardio regular rate, regular rhythm, S1 normal heart sound, S2 normal heart sound, no murmurs, no rub and no gallops GI normal to inspection, nondistended, normoactive bowel sounds, soft to palpation, non-tender and non-distended Extremity normal to inspection, full ROM and no clubbing, cyanosis or edema Skin no rashes or lesions noted, no wounds and skin turgor normal General Skin Exam: no breakdown Neuro oriented x3, moves all extremities, no focal motor deficits and no sensory deficits noted Sensorium / Orientation: awake and alert Psych thought process normal and affect normal Assessment & Plan Assessment/Plan (1) Cardiomyopathy, ischemic: (2) HFrEF (heart failure with reduced ejection fraction): (3) Non-ST elevation [place] (NSTEMI): PLAN: Patient is a 50-year old female who presents with complaints of back pain and pressure. Patient has elevated cardiac enzymes which are trending up. Patient is being followed by cardiology. 1. Non-STEMI -Continue heparin drip -Echocardiogram complete -Plan for patient to go for cardiac catheterization on Tuesday per Dr. Leslie -Patient had coronary stent placed May 19, 2021 to the LAD -No chest pain/back pain in 24 hours 2. Unstable angina -see #1 3. Diabetes mellitus type 2 -AC at bedtime blood sugars with sliding scale insulin ordered 4. Obesity -Lifestyle modifications encouraged DVT prophylaxis-Heparin drip This patient was seen by CARMEN Delaney under the supervision of Dr. Steele. Documented by User: Dr. Francine Steele MD 05/24/21 16:21 Objective Data Lab / Micro Data Result Diagrams: 05/24/21 05:20 05/24/21 05:20 Charges/Coding Addendum Addendum: Patient seen by Cristina MORALES under my supervision Patient seen and examined. She had an episode of vomiting after she was given her morning meds today. She had no other complaints and review of systems otherwise negative. O/E: Const alert, oriented x3 and no apparent distress, morbidly obese HEENT head/scalp atraumatic Head and Scalp: normocephalic Eyes conjunctivae normal and no scleral icterus Neck full ROM and supple Resp normal respiratory effort, normal air movement and clear to auscultation bilaterally Effort and Inspection: able to speak in complete sentences and symmetric chest movement Cardio regular rate, regular rhythm, S1 normal heart sound and S2 normal heart sound GI normal to inspection, nondistended, normoactive bowel sounds, soft to palpation and non-tender Extremity normal to inspection, full ROM and no clubbing, cyanosis or edema Peripheral Pulses: Yes pulses 2+ throughout Skin no rashes or lesions noted, no wounds and skin turgor normal Neuro oriented x3, moves all extremities, no focal motor deficits and no sensory deficits noted Sensorium / Orientation: awake and alert Psych affect normal plan is to continue heparin drip. For cardiac cath on Tuesday. 2D echo showed moderately dilated left ventricle and estimated EF of 30%. IV zofran for nausea and vomiting. Creatinine is trended upwards to 1.30 today. Will hydrate gently with normal saline as she will be receiving contrast tomorrow. Rest as per Cristina Ibarra NP-Norris's notes, which I have reviewed and endorsed. Visit Charges Inpatient E&M: 39225 Subs Hosp L2
--- NOTE | 2021-05-24 10:14 | PCM.PN.CARD ---
Subjective Subjective The patient denies ongoing chest discomfort. She states she did feel somewhat more short of breath and dyspneic when lying supine. She noted after taking her morning medications she felt abruptly nauseated and had emesis. Objective Data Vital Signs: Vital Signs Temp Pulse Resp BP Pulse Ox 98.0 F 78 16 114/50 L 97 05/24/21 09:01 05/24/21 09:01 05/24/21 09:01 05/24/21 09:01 05/24/21 09:01 Oxygen Flow Rate (L/min) 2 Oxygen Delivery Method Room Air Weight: 207 lb 7.28 oz Body Mass Index (BMI) 35.6 Intake & Output: Intake and Output for Last 24 Hours 05/22/21 05/23/21 05/24/21 23:59 23:59 23:59 Intake Total 1503.83 / 1623.83 120 / 120 Balance 1503.83 / 1623.83 120 / 120 Lab / Micro Data Result Diagrams: 05/24/21 05:20 05/24/21 05:20 Labs: Laboratory Results - last 24 hr 05/23/21 11:43: APTT 67.2 H 05/23/21 11:44: POC Glucose 213 H 05/23/21 16:07: POC Glucose 218 H 05/23/21 19:40: APTT 63.0 H 05/23/21 20:45: POC Glucose 163 H 05/24/21 05:20: WBC 6.7, RBC 4.47, Hgb 13.5, Hct 41.3, MCV 92.4, MCH 30.2, MCHC 32.7, RDW Std Deviation 47.6 H, RDW Coeff of Tomi 13.9, Plt Count 231, MPV 11.0, Immature Gran % (Auto) 0.100, Neut % (Auto) 47.1, Lymph % (Auto) 45.2 H, [place] % (Auto) 6.3, Eos % (Auto) 0.9, Baso % (Auto) 0.4, Absolute Neuts (auto) 3.2, Absolute Lymphs (auto) 3.03, Nucleated RBC % 0 05/24/21 05:20: Sodium 137, Potassium 3.7, Chloride 101, Carbon Dioxide 23.0, Anion Gap 13, BUN 30 H, Creatinine 1.30 H, Estim Creat Clear Calc 44.21, Est GFR (MDRD) Af Amer 55 L, Est GFR (MDRD) Non-Af 46 L, BUN/Creatinine Ratio 23.1 H, Glucose 202 H, Calcium 9.6 05/24/21 05:20: APTT 65.8 H 05/24/21 05:20: Troponin I High Sens 104 H 05/24/21 06:39: POC Glucose 206 H Cardiology Labs/Tests 05/23/21 11:43: APTT 67.2 H 05/23/21 19:40: APTT 63.0 H 05/24/21 05:20: WBC 6.7, RBC 4.47, Hgb 13.5, Hct 41.3, MCV 92.4, MCH 30.2, MCHC 32.7, Plt Count 231, MPV 11.0, Immature Gran % (Auto) 0.100, Neut % (Auto) 47.1, Lymph % (Auto) 45.2 H, [place] % (Auto) 6.3, Eos % (Auto) 0.9, Baso % (Auto) 0.4, Absolute Neuts (auto) 3.2, Nucleated RBC % 0 05/24/21 05:20: Sodium 137, Potassium 3.7, Chloride 101, Carbon Dioxide 23.0, Anion Gap 13, BUN 30 H, Creatinine 1.30 H, Est GFR (MDRD) Af Amer 55 L, Est GFR (MDRD) Non-Af 46 L, BUN/Creatinine Ratio 23.1 H, Glucose 202 H, Calcium 9.6 05/24/21 05:20: APTT 65.8 H Rhythm: Sinus rhythm ECHO: As noted below Radiography Diagnostic Testing: Radiology Impression Echocardiogram 05/22/21 23:36 Interpretation Summary The study was technically difficult. Contrast injection was performed. Moderately dilated left ventricle. The estimated ejection fraction is 30 %. Septal motion consistent with IVCD. The left atrium is mildly enlarged. Moderate (2+) eccentric mitral valve insufficiency. Trivial tricuspid valve insufficiency. Trivial pulmonic valve insufficiency. Unable to estimate RV systolic pressure/pulmonary artery pressure due to technically difficult study. Transmitral doppler flow suggestive of impaired relaxation of left ventricle Ordering Physician: Aidan Staples Referring Physician: Margo Tatum Performed By: Tam Jimenez RCS Physical Exam Const alert, oriented x3 and no apparent distress Orientation / Consciousness: awake HEENT normocephalic, head/scalp atraumatic and hearing grossly normal bilaterally Eyes PERRL, EOMs intact bilaterally and conjunctivae normal Neck full ROM, supple and no JVD Resp clear to auscultation bilaterally Cardio regular rate, regular rhythm, S1 normal heart sound and S2 normal heart sound GI normal to inspection, nondistended, normoactive bowel sounds Extremity no pedal edema Skin Skin Narrative: Right radial artery cardiac catheterization site: Resolving ecchymoses Neuro oriented x3, moves all extremities, no focal motor deficits and no sensory deficits noted Psych mental status grossly normal Assessment & Plan Assessment/Plan (1) Non-ST elevation [place] (NSTEMI): PLAN: The patient appears to experience a recent non-ST segment elevation [place]. She presents back now for recurrent symptoms similar to what she had prior to her recent event and recent LAD PCI and has been noted to have cardiac enzymes which did increase. At the present time she is being monitored. Her cardiac rhythm and enzymes are being followed. An echocardiogram was performed with the findings as noted-diminished LV systolic function/LVEF. She is continuing medical management with the addition of IV heparin. She has been tentatively scheduled for diagnostic cardiac catheterization on 05-25-2021 barring an unforeseen change in her clinical course. (2) Atherosclerotic heart disease of [place] coronary artery without angina pectoris: PLAN: She does have a history of CAD which appears to have progressed from June of this year to May of this year. She is continuing medical management. She underwent recent LAD PCI. She is tentatively scheduled for upcoming diagnostic cardiac catheterization on 05-25-2021. (3) History of coronary artery stent placement: PLAN: She underwent recent LAD PCI. She presents back with recurrent symptoms and elevating troponin I levels. She has been treated medically. She is tentatively scheduled for upcoming diagnostic cardiac catheterization on 05-25-2021. (4) Cardiomyopathy, ischemic: PLAN: She does appear to have a history of diminished LV systolic function. She has been treated medically and has recently received percutaneous revascularization therapy. Her echocardiogram demonstrates continued evidence of diminished LV systolic function/LVEF. (5) HFrEF (heart failure with reduced ejection fraction): PLAN: There is a concern based upon her symptoms compatible with orthopnea of the beginnings of potential volume overload. Thus, she will receive additional diuretic therapy in the form of IV furosemide. (6) Hyperlipidemia: PLAN: She should continue risk factor evaluation and care. (7) Benign hypertension: PLAN: Her blood pressure will be followed with her medicines adjusted accordingly. (8) Type 2 diabetes mellitus: PLAN: She will continue evaluation care per internal medicine. (9) Obesity: PLAN: decrease her weight which would benefit her multiple cardiovascular risk factors/cardiac status.She does need to attempt to adjust her diet, her activity level, and attempt to Addt'l Comments This note was generated using a voice recognition system and there may be incorrect words, spelling or punctuation that were not noted when reviewing the office note prior to saving.
[2021-05-24] MEDS: Furosemide 20 MG/2 ML VIAL IV (10:47)
[2021-05-24] MEDS: Nitroglycerin Oint 1 INCH PACKET 0.5 INCH TD ×2 (10:48→17:03)
[2021-05-24 11:41] LABS: Bedside Glucose 289 mg/dL (70-110)
[2021-05-24] MEDS: 0.9% Normal Saline 1,000 ML 75 ML IV (17:03)
[2021-05-24 17:31] LABS: Bedside Glucose 221 mg/dL (70-110)
[2021-05-24] MEDS: Atorvastatin Calcium 80 MG Tablet PO (20:45)
[2021-05-24] MEDS: tiZANidine HCl 2 MG Tablet 4 MG PO (20:46)
[2021-05-24] MEDS: Temazepam 15 MG Capsule PO (20:46)
--- NOTE | 2021-05-24 22:08 | EKG12_ITS ---
Test Reason : CP Blood Pressure : / mmHG Vent. Rate : 076 BPM Atrial Rate : 076 BPM P-R Int : 194 ms QRS Dur : 162 ms QT Int : 478 ms P-R-T Axes : 059 -18 015 degrees QTc Int : 537 ms Sinus rhythm with Premature supraventricular complexes Left bundle branch block Abnormal ECG When compared with ECG of 18-MAY-2021 22:10, MANUAL COMPARISON REQUIRED, DATA IS UNCONFIRMED Confirmed by JANAY GEE, JAMEL ([id number]), editor publications JAYLIN FRANK ([id number]) on 05/26/2021 8:11:23 AM Referred By: BROCK Confirmed By:JAMEL GUSTAFSON MD
[2021-05-24 22:15] LABS: Bedside Glucose 296 mg/dL (70-110)
[2021-05-25] VITALS (14 sets, daily range): BP systolic 86–129; BP diastolic 41–95; PULSE 69–80; RESP 16–18; TEMP 36.3–36.9; O2SAT 94–100
[2021-05-25 00:31] LABS: Bedside Glucose 172 mg/dL (70-110)
[2021-05-25] MEDS: Aspirin 81 MG TAB.CHEW PO (05:26)
[2021-05-25] MEDS: TICAGRELOR 90 MG TABLET PO (05:27)
--- NOTE | 2021-05-25 05:55 | EKG12_ITS ---
Test Reason : SOB Blood Pressure : / mmHG Vent. Rate : 081 BPM Atrial Rate : 081 BPM P-R Int : 206 ms QRS Dur : 156 ms QT Int : 474 ms P-R-T Axes : 039 -28 057 degrees QTc Int : 550 ms Sinus rhythm with Premature supraventricular complexes Left bundle branch block Abnormal ECG When compared with ECG of 23-MAY-2021 00:15, MANUAL COMPARISON REQUIRED, DATA IS UNCONFIRMED Confirmed by JANAY GEE, JAMEL ([id number]), editor news JAYLIN FRANK ([id number]) on 05/26/2021 8:42:17 AM Referred By: SHANNON Confirmed By:JAMEL GUSTAFSON MD
[2021-05-25 06:23] LABS: Absolute Lymphocyte Count 1.81 X10^3/uL (0.83-4.51); Absolute Neutrophil Count 2.9 X10^3/uL (2.0-7.7); Basophil# 0.02 X10^3/uL; Basophil% 0.4 % (0-1); Eosinophil# 0.04 X10^3/uL; Eosinophils% 0.8 % (0-5); Hematocrit 34.4 % (37-47); Hemoglobin 11.6 g/dL (12.0-15.0); Lymphocyte # 1.81 X10^3/ul (0.83-4.51); Lymphocyte % 34.7 % (19-41); Mean Corp Hgb Conc 33.7 g/dL (32-36); Mean Corpuscular Hgb 31.1 pg (27.0-32.0); Mean Corpuscular Volume 92.2 fL (81-99); Mean Platelet Vol. 10.9 fl (6.2-12.0); Monocyte% 7.7 % (0-10); NRBC Flagged by Analyzer 0 % (0-5); Neutrophil # 2.93 X10^3/uL (2.7-7.7); Neutrophil % 56.2 % (47-70); Platelet Count 185 K/mm3 (150-450); RBC Distribution Width SD 47.4 fl (35.1-43.9); Red Blood Count 3.73 M/mm3 (4.2-5.4); White Blood Count 5.2 K/mm3 (4.4-11.0)
[2021-05-25 06:24] LABS: Partial Thromboplast Time 33.3 Seconds (24.1-36.2)
[2021-05-25 06:40] LABS: Anion Gap 8 (5-15); BUN 30 mg/dL (7-18); BUN/Creat Ratio 26.1 RATIO (10-20); Calcium,Total 9.2 mg/dL (8.5-10.1); Chloride 108 mmol/L (98-107); Creatinine, Serum 1.15 mg/dL (0.55-1.02); EST Glomerular Filtration Rate 53 mL/min (>60); Est Glom Filt Rate - Afr Amer 64 mL/min (>60); Estimated Creatinine Clearance 49.98 ml/min; Glucose 144 mg/dL (74-106); Potassium 3.5 mmol/L (3.5-5.1); Sodium Level 140 mmol/L (136-145)
[2021-05-25 06:55] LABS: Bedside Glucose 121 mg/dL (70-110)
--- NOTE | 2021-05-25 10:13 | CL.D_ITS ---
Patient Name: PITO CLARK Study Date: 05/25/2021 Performing: Cr Ho MD Ht: 64.17 inches 163 cm : 1970 Wt: 207.23 lbs 94 kg Age: 50 Gender: female BSA: 1.99 PROCEDURE(S) PERFORMED [id number])LHC/COR/LV CLINICAL PROFILE AND INDICATIONS Indications: Worsening Angina Heart Failure: None Stress/Imaging Stress/Image Study Performed: No CAD Presentations: Unstable angina. CONCLUSIONS Coronary disease with previously placed stent in the left anterior descending artery noted to be penaloza nt. Left ventricular systolic dysfunction with 2+ mitral regurgitation. RECOMMENDATIONS Medical therapy DESCRIPTION OF PROCEDURE The patient arrived to the procedure lab. The risks and benefits of the procedure as well as a full d escription of our services here and current unavailability of surgical backup were fully explained to the patient and/or their significant other prior to the catheterization. The Timeout was completed, verifying the correct patient and procedure. The patient's procedural site was prepped and draped in the usual fashion. Local anesthetic was given subcutaneously to right groin region with Lidocaine 2%. Using a modified Seldinger technique, arterial access was obtained via the right femoral artery, a 5 Fr sheath was inserted. Left Coronary Artery selective angiography was performed in multiple views u sing a 5 Fr. JL4 catheter. Right Coronary Artery selective angiography was then performed in multiple views using a 5 Fr. 3DRC (Scott) catheter. Left Ventriculography was performed in SMALL projection using a 5 Fr. Pigtail catheter. LV to AO pullback pressures were then recorded.The arterial sheath was pulled and a Mynx closure device was deployed for hemostasis CORONARY ANGIOGRAPHY DOMINANCE: Right Dominant LEFT HEART ASSESSMENT Left Ventricular Ejection Fraction: by LV Gram 35 % Global Hypokinesis - Moderate Depressed Left Ventricular systolic function LEFT MAIN: Angiographically normal LEFT ANTERIOR DESCENDING ARTERY: MID LAD: Previously placed stent is patent CIRCUMFLEX ARTERY: Mild luminal irregularities RIGHT CORONARY ARTERY: No significant disease noted VALVE FINDINGS: Mitral Valve Insufficiency - Grade 2 COMPLICATIONS No Complications PROCEDURE MEDICATIONS Versed 2 mg IV Fentanyl 50 mcg IV Versed 1 mg IV Fentanyl 50 mcg IV Oxygen: 2 L/min via nasal cannula SUMMARY OF HEMODYNAMIC DATA Time AIR REST ECG 09:39:43 AO 115/66 (84) SA 09:53:57 LV 117/12, 18 09:58:54 LV 119/14, 20 09:59:00 LV 114/17, 22 10:00:08 LVp 116/16, 21 10:00:17 AOp 118/64 (87) 10:00:22 Signed By Cr Ho MD On 05/25/2021 10:12:32 AM Cr Ho MD
--- NOTE | 2021-05-25 10:14 | PCM.PN.CARD ---
Subjective Subjective Patient's seen and evaluated. Underwent cardiac catheterization. Objective Data Vital Signs: Vital Signs Temp Pulse Resp BP Pulse Ox 98.4 F 80 16 121/55 H 100 05/25/21 08:45 05/25/21 08:45 05/25/21 08:45 05/25/21 08:45 05/25/21 08:45 Oxygen Flow Rate (L/min) 2 Oxygen Delivery Method Room Air Weight: 207 lb 7.28 oz Body Mass Index (BMI) 35.6 Intake & Output: Intake and Output for Last 24 Hours 05/23/21 05/24/21 05/25/21 23:59 23:59 23:59 Intake Total 1503.83 / 1623.83 1410 / 1510 2268.93 / 2268.93 Output Total 100 / 100 Balance 1503.83 / 1623.83 1310 / 1410 2268.93 / 2268.93 Lab / Micro Data Result Diagrams: 05/25/21 05:20 05/25/21 05:20 Labs: Laboratory Results - last 24 hr 05/24/21 11:28: POC Glucose 289 H 05/24/21 16:59: POC Glucose 221 H 05/24/21 20:42: POC Glucose 172 H 05/24/21 22:01: POC Glucose 296 H 05/25/21 05:20: WBC 5.2, RBC 3.73 L, Hgb 11.6 L, Hct 34.4 L, MCV 92.2, MCH 31.1, MCHC 33.7, RDW Std Deviation 47.4 H, RDW Coeff of Tomi 14.0, Plt Count 185, MPV 10.9, Immature Gran % (Auto) 0.200, Neut % (Auto) 56.2, Lymph % (Auto) 34.7, [place] % (Auto) 7.7, Eos % (Auto) 0.8, Baso % (Auto) 0.4, Absolute Neuts (auto) 2.9, Absolute Lymphs (auto) 1.81, Nucleated RBC % 0 05/25/21 05:20: Sodium 140, Potassium 3.5, Chloride 108 H, Carbon Dioxide 24.0, Anion Gap 8, BUN 30 H, Creatinine 1.15 H, Estim Creat Clear Calc 49.98, Est GFR (MDRD) Af Amer 64, Est GFR (MDRD) Non-Af 53 L, BUN/Creatinine Ratio 26.1 H, Glucose 144 H, Calcium 9.2 05/25/21 05:20: APTT 33.3 05/25/21 06:35: POC Glucose 121 H Cardiology Labs/Tests 05/25/21 05:20: WBC 5.2, RBC 3.73 L, Hgb 11.6 L, Hct 34.4 L, MCV 92.2, MCH 31.1, MCHC 33.7, Plt Count 185, MPV 10.9, Immature Gran % (Auto) 0.200, Neut % (Auto) 56.2, Lymph % (Auto) 34.7, [place] % (Auto) 7.7, Eos % (Auto) 0.8, Baso % (Auto) 0.4, Absolute Neuts (auto) 2.9, Nucleated RBC % 0 05/25/21 05:20: Sodium 140, Potassium 3.5, Chloride 108 H, Carbon Dioxide 24.0, Anion Gap 8, BUN 30 H, Creatinine 1.15 H, Est GFR (MDRD) Af Amer 64, Est GFR (MDRD) Non-Af 53 L, BUN/Creatinine Ratio 26.1 H, Glucose 144 H, Calcium 9.2 05/25/21 05:20: APTT 33.3 Rhythm: EKG: ECHO: Stress Test: Cardiac Cath: PCI: CT Surgery: Holter monitor: EPS: PPM: CXR: Chest CT Scan: Physical Exam Const alert, oriented x3 and no apparent distress General Appearance: cooperative HEENT hearing grossly normal bilaterally Head and Scalp: atraumatic Eyes EOMs intact bilaterally Neck General: normal visual inspection Chest inspection of chest normal and palpation of chest normal Resp normal respiratory effort Auscultation: clear to auscultation bilaterally Cardio regular rate, regular rhythm, S1 normal heart sound and S2 normal heart sound Jugular Venous Distention: JVD GI normal to inspection, nondistended, normoactive bowel sounds Extremity normal capillary refill and no pedal edema Peripheral Pulses: Yes pulses 2+ throughout and femoral pulses present Skin no rashes or lesions noted Neuro oriented x3 and CN's II-XII intact bilaterally Psych Appearance: grossly normal and appropriate Assessment & Plan Assessment/Plan (1) History of coronary artery stent placement: PLAN: She underwent recent LAD PCI. She presented with recurrent chest discomfort. Her troponin levels I suspect was still mildly fluctuating from her previous stay. She underwent cardiac catheterization today which demonstrated the following: Left main coronary artery noted to be normal. Left anterior descending artery previously stented patent. Left circumflex artery with no significant disease. Right coronary artery with no significant disease. Based on the above angiographic findings the patient to be treated with medical therapy with the addition of isosorbide 30 mg a day. We will follow up in the office. (2) Cardiomyopathy, ischemic: PLAN: She does appear to have a history of diminished LV systolic function. She will continue on the carvedilol, MERRILL inhibitor, and diuretic. (3) HFrEF (heart failure with reduced ejection fraction): PLAN: She does have mild mitral regurgitation contributing to her heart failure with reduced ejection fraction and her estimated ejection fraction of 35%. Would recommend continue beta-timothy Continue MERRILL inhibitor Continue SGLT2 inhibitor Continue diuretic (4) Hyperlipidemia: PLAN: She should continue risk factor evaluation and care. (5) Benign hypertension: PLAN: Her blood pressure will be followed with her medicines adjusted accordingly.
--- NOTE | 2021-05-25 10:45 | PCM.DC ---
Discharge Instructions Follow Up Care Test Results: Test results from this visit will be discussed in further detail at your follow-up appointment, if applicable. Discharge Plan Admission Admit Date/Time: 05/22/21 22:54 Primary Reason for Your Visit: Chest pain Attending Provider: Maribel Gilbert Primary Care Provider: Margo Tatum Consulting Providers: Gustavo Leslie Discharge Orders/Prescriptions Prescriptions: New isosorbide mononitrate 30 mg Tablet Extended Release 24 Hr 30 mg PO DAILY Qty: 30 RF: 0 Continued ondansetron 4 mg tablet,disintegrating 4 mg PO Q6H PRN (Reason: Nausea) RF: 0 sucralfate 1 gram tablet 1 g PO 4X/DAY PRN (Reason: Constipation) RF: 0 glipizide 10 mg tablet extended release 24hr 10 mg PO BID RF: 0 furosemide 40 mg tablet 40 mg PO DAILY Qty: 90 RF: 3 carvedilol 12.5 mg tablet 6.25 mg PO BID Qty: 120 RF: 3 lisinopril 20 mg tablet 20 mg PO DAILY Qty: 90 RF: 3 tramadol 50 mg tablet 50 mg PO TID PRN (Reason: Pain) RF: 0 omeprazole 20 MG capsule 20 mg PO DAILY Qty: 30 RF: 0 tizanidine 4 MG tablet 4 mg PO QHS RF: 0 atorvastatin 80 mg Tablet 80 mg PO QHS Qty: 60 RF: 2 Brilinta 90 mg Tablet 90 mg PO BID Qty: 180 RF: 2 dapagliflozin 5 mg tablet 5 mg PO DAILY Qty: 60 RF: 3 aspirin 81 mg capsule 81 mg PO DAILY Qty: 60 RF: 3 Referrals / Follow Up: Margo Tatum DO [Primary Care Provider] - Within 2 Weeks Gustavo Leslie MD [STAFF PHYSICIAN] - Within 2 Weeks Disposition Disposition (needs filled in before D/C Order can be placed): Home, Self Care
[2021-05-25] MEDS: Pantoprazole Sodium 20 MG Tablet PO (10:52)
[2021-05-25] MEDS: glipiZIDE XL 5 MG Tablet 10 MG PO (10:52)
[2021-05-25] MEDS: Empagliflozin 10 MG Tablet PO (10:53)
[2021-05-25] MEDS: Furosemide 40 MG Tablet PO (10:53)
[2021-05-25 11:28] LABS: BNP,B-Type NATRIURETIC PEPTIDE 48.7 pg/mL (0-100)
--- NOTE | 2021-05-25 11:33 | PCM.DC.SUM ---
Documented by User: CARMEN Delaney 05/25/21 11:44 Providers Date of Admission: 05/22/21 Primary Care Physician: Dr. Margo Tatum DO Consultations 05/22/21 23:36 Consult: Cardiology Routine Consulting Provider: Gustavo Leslie Reason for Consult: NSTEMI EMERGENT Consult: No MD Notified: Yes Date Notified: 05/22/21 Time Notified: 22:57 Method of Notification: Verbal Method of Consult:: In-Person Reason For Visit: NON-STEMI, UNSTABLEANGINA Diagnosis Discharge Diagnosis (1) History of coronary artery stent placement: Status: Acute Code(s): Z95.5 - Presence of coronary angioplasty implant and graft (2) Cardiomyopathy, ischemic: Status: Acute Code(s): I25.5 - Ischemic cardiomyopathy (3) HFrEF (heart failure with reduced ejection fraction): Status: Chronic Code(s): I50.20 - Unspecified systolic (congestive) heart failure (4) Hyperlipidemia: Status: Chronic Code(s): E78.5 - Hyperlipidemia, unspecified (5) Benign hypertension: Status: Chronic Code(s): I10 - Essential (primary) hypertension Medications at Discharge Home Medications omeprazole 20 mg PO DAILY #30 cap 12/01/18 tizanidine 4 mg PO QHS 06/12/20 furosemide 40 mg tablet 40 mg PO DAILY #90 tab 07/11/20 glipizide 10 mg tablet, extended release 24 hr 10 mg PO BID tab 07/11/20 ondansetron 4 mg disintegrating tablet 4 mg PO Q6H PRN tab 07/11/20 sucralfate 1 gram tablet 1 g PO 4X/DAY PRN tab 07/11/20 tramadol 50 mg tablet 50 mg PO TID PRN tab 07/11/20 carvedilol 12.5 mg tablet 6.25 mg PO BID #120 tab 03/31/21 lisinopril 20 mg tablet 20 mg PO DAILY #90 tab 03/31/21 Brilinta 90 mg PO BID #180 tab 05/20/21 aspirin 81 mg PO DAILY #60 cap 05/20/21 atorvastatin 80 mg PO QHS #60 tab 05/20/21 dapagliflozin 5 mg PO DAILY #60 tab 05/20/21 isosorbide mononitrate 30 mg PO DAILY #30 tab 05/25/21 Hospital Course Operations None Procedures 2-D Echocardiogram and Cardiac catheterization Summary of Care Provided Minutes Spent on Discharge: 35 Hospital Course: Patient is a 50-year-old female who originally came in with complaints of back pain and shortness of breath. Patient received echocardiogram which demonstrates EF 30%. Patient also underwent cardiac catheterization which showed coronary disease with previous placed stent in the left anterior descending artery noted to be patent left ventricular systolic dysfunction with 2+ mitral regurgitation. Patient will be discharged home with medical management. Physical Exam Const alert, oriented x3, no apparent distress and healthy appearing General Appearance: cooperative, well kempt and well developed HEENT normocephalic, head/scalp atraumatic and moist oral mucous membranes Eyes conjunctivae normal and no scleral icterus Neck full ROM, supple and thyroid normal General: trachea midline Resp normal respiratory effort, normal air movement and clear to auscultation bilaterally Effort and Inspection: able to speak in complete sentences and symmetric chest movement Cardio regular rate, regular rhythm, S1 normal heart sound and S2 normal heart sound GI normal to inspection, nondistended, normoactive bowel sounds, soft to palpation and non-tender Extremity normal to inspection, full ROM and no clubbing, cyanosis or edema Skin no rashes or lesions noted, no wounds and skin turgor normal General Skin Exam: no breakdown Neuro oriented x3, moves all extremities, no focal motor deficits and no sensory deficits noted Sensorium / Orientation: awake and alert Speech: speech normal Psych thought process normal and affect normal Weight / BMI Weight Weight: 207 lb 7.28 oz Body Mass Index (BMI) 35.6 ABG / Lab / Microbiology Data Result Diagrams: 05/25/21 05:20 05/25/21 05:20 Laboratory: Laboratory Results - last 24 hr 05/24/21 11:28: POC Glucose 289 H 05/24/21 16:59: POC Glucose 221 H 05/24/21 20:42: POC Glucose 172 H 05/24/21 22:01: POC Glucose 296 H 05/25/21 05:20: WBC 5.2, RBC 3.73 L, Hgb 11.6 L, Hct 34.4 L, MCV 92.2, MCH 31.1, MCHC 33.7, RDW Std Deviation 47.4 H, RDW Coeff of Tomi 14.0, Plt Count 185, MPV 10.9, Immature Gran % (Auto) 0.200, Neut % (Auto) 56.2, Lymph % (Auto) 34.7, Bath % (Auto) 7.7, Eos % (Auto) 0.8, Baso % (Auto) 0.4, Absolute Neuts (auto) 2.9, Absolute Lymphs (auto) 1.81, Nucleated RBC % 0 05/25/21 05:20: Sodium 140, Potassium 3.5, Chloride 108 H, Carbon Dioxide 24.0, Anion Gap 8, BUN 30 H, Creatinine 1.15 H, Estim Creat Clear Calc 49.98, Est GFR (MDRD) Af Amer 64, Est GFR (MDRD) Non-Af 53 L, BUN/Creatinine Ratio 26.1 H, Glucose 144 H, Calcium 9.2 05/25/21 05:20: APTT 33.3 05/25/21 05:20: B-Natriuretic Peptide 48.7 05/25/21 06:35: POC Glucose 121 H Microbiology: Microbiology 05/22/21 20:10 Nasal Secretion SARS-CoV-2 Antigen (Rapid) - Final D/C Instructions Discharge Diet: Low fat / Low cholesterol May shower in (days): 1 Call your doctor if you observe: Shortness of breath, Dizziness, Swelling in the ankles, Chest pain and Increased palpitations (irregular heartbeat) Meaningful Use Info Meaningful Use Diagnoses (Choose all that apply): None applicable Discharge Plan Admission Admit Date/Time: 05/22/21 22:54 Primary Reason for Your Visit: Chest pain Attending Provider: Maribel Gilbert Primary Care Provider: Margo Tatum Consulting Providers: Gustavo Leslie Discharge Orders/Prescriptions Prescriptions: New isosorbide mononitrate 30 mg Tablet Extended Release 24 Hr 30 mg PO DAILY Qty: 30 RF: 0 Continued ondansetron 4 mg tablet,disintegrating 4 mg PO Q6H PRN (Reason: Nausea) RF: 0 sucralfate 1 gram tablet 1 g PO 4X/DAY PRN (Reason: Constipation) RF: 0 glipizide 10 mg tablet extended release 24hr 10 mg PO BID RF: 0 furosemide 40 mg tablet 40 mg PO DAILY Qty: 90 RF: 3 carvedilol 12.5 mg tablet 6.25 mg PO BID Qty: 120 RF: 3 lisinopril 20 mg tablet 20 mg PO DAILY Qty: 90 RF: 3 tramadol 50 mg tablet 50 mg PO TID PRN (Reason: Pain) RF: 0 omeprazole 20 MG capsule 20 mg PO DAILY Qty: 30 RF: 0 tizanidine 4 MG tablet 4 mg PO QHS RF: 0 atorvastatin 80 mg Tablet 80 mg PO QHS Qty: 60 RF: 2 Brilinta 90 mg Tablet 90 mg PO BID Qty: 180 RF: 2 dapagliflozin 5 mg tablet 5 mg PO DAILY Qty: 60 RF: 3 aspirin 81 mg capsule 81 mg PO DAILY Qty: 60 RF: 3 Referrals / Follow Up: Margo Tatum DO [Primary Care Provider] - Within 2 Weeks (Please call to make an appointment for a hospital follow up. ) Gustavo Leslie MD [STAFF PHYSICIAN] - 06/08/21 1:00 pm Disposition Disposition (needs filled in before D/C Order can be placed): Home, Self Care Documented by User: Dr. Maribel Gilbert MD 05/26/21 07:51 Providers Date of Admission: 05/22/21 Reason For Visit: NON-STEMI, UNSTABLEANGINA Medications at Discharge Home Medications omeprazole 20 mg PO DAILY #30 cap 12/01/18 tizanidine 4 mg PO QHS 06/12/20 furosemide 40 mg tablet 40 mg PO DAILY #90 tab 07/11/20 glipizide 10 mg tablet, extended release 24 hr 10 mg PO BID tab 07/11/20 ondansetron 4 mg disintegrating tablet 4 mg PO Q6H PRN tab 07/11/20 sucralfate 1 gram tablet 1 g PO 4X/DAY PRN tab 07/11/20 tramadol 50 mg tablet 50 mg PO TID PRN tab 07/11/20 carvedilol 12.5 mg tablet 6.25 mg PO BID #120 tab 03/31/21 lisinopril 20 mg tablet 20 mg PO DAILY #90 tab 03/31/21 Brilinta 90 mg PO BID #180 tab 05/20/21 aspirin 81 mg PO DAILY #60 cap 05/20/21 atorvastatin 80 mg PO QHS #60 tab 05/20/21 dapagliflozin 5 mg PO DAILY #60 tab 05/20/21 isosorbide mononitrate 30 mg PO DAILY #30 tab 05/25/21 ABG / Lab / Microbiology Data Result Diagrams: 05/25/21 05:20 05/25/21 05:20 Discharge Plan Admission Admit Date/Time: 05/22/21 22:54 Primary Reason for Your Visit: Chest pain Attending Provider: Maribel Gilbert Primary Care Provider: Margo Tatum Consulting Providers: Gustavo Leslie Discharge Orders/Prescriptions Prescriptions: New isosorbide mononitrate 30 mg Tablet Extended Release 24 Hr 30 mg PO DAILY Qty: 30 RF: 0 Continued ondansetron 4 mg tablet,disintegrating 4 mg PO Q6H PRN (Reason: Nausea) RF: 0 sucralfate 1 gram tablet 1 g PO 4X/DAY PRN (Reason: Constipation) RF: 0 glipizide 10 mg tablet extended release 24hr 10 mg PO BID RF: 0 furosemide 40 mg tablet 40 mg PO DAILY Qty: 90 RF: 3 carvedilol 12.5 mg tablet 6.25 mg PO BID Qty: 120 RF: 3 lisinopril 20 mg tablet 20 mg PO DAILY Qty: 90 RF: 3 tramadol 50 mg tablet 50 mg PO TID PRN (Reason: Pain) RF: 0 omeprazole 20 MG capsule 20 mg PO DAILY Qty: 30 RF: 0 tizanidine 4 MG tablet 4 mg PO QHS RF: 0 atorvastatin 80 mg Tablet 80 mg PO QHS Qty: 60 RF: 2 Brilinta 90 mg Tablet 90 mg PO BID Qty: 180 RF: 2 dapagliflozin 5 mg tablet 5 mg PO DAILY Qty: 60 RF: 3 aspirin 81 mg capsule 81 mg PO DAILY Qty: 60 RF: 3 Referrals / Follow Up: Margo Tatum DO [Primary Care Provider] - Within 2 Weeks (Please call to make an appointment for a hospital follow up. ) Gustavo Leslie MD [STAFF PHYSICIAN] - 06/08/21 1:00 pm Disposition Disposition (needs filled in before D/C Order can be placed): Home, Self Care Charges/Coding Addendum Addendum: This patient was seen in conjunction with Cristina Ibarra NP. I have independently interviewed and examined the patient and reviewed pertinent historical, laboratory, and other data. I have reviewed her note and concur with her documentation 50-year-old female with past medical history of heart failure with reduced EF, EF of 30%, CAD, hypertension, type II DM who comes in with complaints of chest pain. Chest pain was described as pressure in the middle of her chest. Her troponins were elevated. She was admitted to the hospital and managed as acute non-STEMI. Cardiology was consulted. Patient underwent cardiac cath on 05/25/21 and findings were unremarkable. She was seen on the day of discharge. She complains of shortness of breath. Her BNpep was 48.7. Patient complains of shortness of breath with exertion. She was recommended to follow-up with pulmonology. She declined. Physical Exam: Gen: Comfortable, not pale, not jaundiced CVS:HS I +II, regular, no murmurs RESP: Diminished at lung bases GI: BS present and normal, soft, nontender, no palpable organs EXT:No edema Visit Charges Inpatient E&M: 37107 Disch Hosp
[2021-05-25 12:20] LABS: Bedside Glucose 107 mg/dL (70-110)
--- NOTE | 2021-05-25 14:10 | PHA.DC.MC ---
Pharmacy Service has performed discharge medication reconciliation and counseling for this patient. 1. ISOSORBIDE MONONITRATE 30MG PO DAILY The patient's discharge medication list was reviewed for discrepancies and discrepancies were resolved. Home Medications omeprazole 20 mg PO DAILY #30 cap 12/01/18 tizanidine 4 mg PO QHS 06/12/20 furosemide 40 mg tablet 40 mg PO DAILY #90 tab 07/11/20 glipizide 10 mg tablet, extended release 24 hr 10 mg PO BID tab 07/11/20 ondansetron 4 mg disintegrating tablet 4 mg PO Q6H PRN tab 07/11/20 sucralfate 1 gram tablet 1 g PO 4X/DAY PRN tab 07/11/20 tramadol 50 mg tablet 50 mg PO TID PRN tab 07/11/20 carvedilol 12.5 mg tablet 6.25 mg PO BID #120 tab 03/31/21 lisinopril 20 mg tablet 20 mg PO DAILY #90 tab 03/31/21 Brilinta 90 mg PO BID #180 tab 05/20/21 aspirin 81 mg PO DAILY #60 cap 05/20/21 atorvastatin 80 mg PO QHS #60 tab 05/20/21 dapagliflozin 5 mg PO DAILY #60 tab 05/20/21 isosorbide mononitrate 30 mg PO DAILY #30 tab 05/25/21 The patient was counseled on the following discharge medications and changes in medications for homegoing were reviewed. The Reason for Use, instructions for use, and potential side effects were reviewed for all new medications. The patient's questions regarding all of their medications were answered. The patient was able to verbally demonstrate an understanding of their discharge medications.
== END 2021-05-25 15:00 | disposition home or self-care (01) | DRG 281 ==
LOC: ED 22:15 → PCU 23:32
PROVIDERS: Internal Medicine Cardiovascular Disease; Nurse Practitioner Family; Student in an Organized Health Care Education/Training Program; Admitting Provider Internal Medicine; Emergency Provider Student in an Organized Health Care Education/Training Program; PCP Family Medicine; Visit Provider Internal Medicine
DX: I21.4 Non-ST elevation (NSTEMI) myocardial infarction (principal); I50.22 Chronic systolic (congestive) heart failure; I44.0 Atrioventricular block, first degree; I44.7 Left bundle-branch block, unspecified; I34.0 Nonrheumatic mitral (valve) insufficiency; I11.0 Hypertensive heart disease with heart failure; I25.5 Ischemic cardiomyopathy; I25.110 Atherosclerotic heart disease of native coronary artery with unstable angina pectoris; E78.5 Hyperlipidemia, unspecified; E11.9 Type 2 diabetes mellitus without complications; I25.2 Old myocardial infarction; G47.33 Obstructive sleep apnea (adult) (pediatric); E66.9 Obesity, unspecified; Z68.37 Body mass index [BMI] 37.0-37.9, adult; Z95.5 Presence of coronary angioplasty implant and graft; Z79.82 Long term (current) use of aspirin; Z79.84 Long term (current) use of oral hypoglycemic drugs; Z79.899 Other long term (current) drug therapy; Z87.891 Personal history of nicotine dependence
CPT/HCPCS: 36415; 71045; 71275; 80048; 82962; 83880; 84484; 85025; 85379; 85610; 85730; 87426; 87635; 93005; 93306; 93458; 99152; 99153; 99285; C1760; J7030; J7040; Q9957; Q9967; U0005; A4216; C1769; C8929; J1940; J2405; U0003

== ENCOUNTER 2021-06-04 12:51 | Emergency (ER) | payer MEDICARE, MEDICAID, SELFPAY ==
[2021-06-04 12:51] VITALS: BP 166/81; PULSE 90; RESP 24; TEMP 36.6; O2SAT 100; BMI 35.3
[2021-06-04 13:00] VITALS: PULSE 84; RESP 17; O2SAT 100
[2021-06-04 13:02] VITALS: BP 159/70
--- NOTE | 2021-06-04 13:15 | EKG12_ITS ---
Test Reason : CHEST PAIN Blood Pressure : / mmHG Vent. Rate : 087 BPM Atrial Rate : 087 BPM P-R Int : 186 ms QRS Dur : 172 ms QT Int : 438 ms P-R-T Axes : 050 -06 036 degrees QTc Int : 527 ms Sinus rhythm with Premature supraventricular complexes Left bundle branch block Abnormal ECG Confirmed by JANAY GEE, JAMEL ([id number]), website/blog editor GUILLERMO LAROSE ([id number]) on 06/10/2021 11:00:12 AM Referred By: MR Confirmed By:JAMEL GUSTAFSON MD
[2021-06-04 13:28] LABS: Erythrocyte Sedimentation Rate 16 mm/hr (0-30)
[2021-06-04 13:29] LABS: Absolute Lymphocyte Count 2.23 X10^3/uL (0.83-4.51); Absolute Neutrophil Count 3.8 X10^3/uL (2.0-7.7); Basophil# 0.02 X10^3/uL; Basophil% 0.3 % (0-1); Eosinophil# 0.04 X10^3/uL; Eosinophils% 0.6 % (0-5); Hematocrit 37.9 % (37-47); Hemoglobin 13.1 g/dL (12.0-15.0); Lymphocyte # 2.23 X10^3/ul (0.83-4.51); Lymphocyte % 34.6 % (19-41); Mean Corp Hgb Conc 34.6 g/dL (32-36); Mean Corpuscular Hgb 31.3 pg (27.0-32.0); Mean Corpuscular Volume 90.7 fL (81-99); Mean Platelet Vol. 10.8 fl (6.2-12.0); Monocyte# 0.38 X10^3/uL; Monocyte% 5.9 % (0-10); NRBC Flagged by Analyzer 0 % (0-5); Neutrophil # 3.75 X10^3/uL (2.7-7.7); Neutrophil % 58.3 % (47-70); Platelet Count 215 K/mm3 (150-450); RBC Distribution Width CV 13.7 % (11.6-14.6); RBC Distribution Width SD 44.9 fl (35.1-43.9); Red Blood Count 4.18 M/mm3 (4.2-5.4); White Blood Count 6.4 K/mm3 (4.4-11.0)
[2021-06-04 13:34] LABS: D-Dimer Quantitative (DVT/PE) 0.58 FEU/ug/m (0.27-0.49)
[2021-06-04 13:41] LABS: Anion Gap 8 (5-15); BUN 18 mg/dL (7-18); BUN/Creat Ratio 16.2 RATIO (10-20); CRP 6.42 mg/L (0.0-3.0); Calcium,Total 9.4 mg/dL (8.5-10.1); Chloride 105 mmol/L (98-107); Creatinine, Serum 1.11 mg/dL (0.55-1.02); EST Glomerular Filtration Rate 55 mL/min (>60); Est Glom Filt Rate - Afr Amer 67 mL/min (>60); Estimated Creatinine Clearance 51.78 ml/min; Glucose 378 mg/dL (74-106); Magnesium 2.1 mg/dL (1.6-2.6); Potassium 3.2 mmol/L (3.5-5.1); Sodium Level 137 mmol/L (136-145); Troponin-I HS 13 pg/mL (3.0-54.0)
[2021-06-04 13:43] VITALS: O2SAT 98
[2021-06-04] MEDS: Ondansetron 4 MG/2 ML Vial IV (13:53)
[2021-06-04] MEDS: Morphine 4 MG/ML Syringe IV (13:53)
[2021-06-04] MEDS: Aspirin 81 MG TAB.CHEW 324 MG PO (13:53)
--- NOTE | 2021-06-04 13:55 | CT_ITS ---
EXAM: CT ANGIOGRAPHY CHEST WITHOUT AND WITH INTRAVENOUS CONTRAST CLINICAL INDICATION: chest pain TECHNIQUE: Helically acquired angiography images were obtained of the chest without and with intravenous contrast. This CT exam was performed using one or more of the following dose reduction techniques: automated exposure control, adjustment of the mA and/or kV according to patient size, and/or use of iterative reconstruction technique. This report was created using [employer] report generation technology. MIP reconstructed images were created and reviewed. CONTRAST: IV 100mL [id number] COMPARISON: May 22 2021 8:39pm FINDINGS: PULMONARY ARTERIES: No demonstrated pulmonary embolism or arterial dissection. AORTA: There is atherosclerotic calcification of the aortic arch with tortuosity and elongation of the aortic arch and descending thoracic aorta. Normal in caliber. No evidence of dissection. GREAT VESSELS OF AORTIC ARCH: Unremarkable. Normal in caliber. No evidence of dissection. LUNGS AND PLEURAL SPACES: There is bilateral stable mild pneumonia. Few scattered groundglass and peripheral reticulonodular opacities mostly within the lower lobes may be infectious or inflammatory in etiology. This is unchanged. No mass. No pleural effusion or thickening. HEART: There are calcifications of the coronary arteries. No pericardial effusion. No signs of right heart strain, ratio of right ventricle to left ventricle measures less than 1. MEDIASTINUM: Unremarkable. No mediastinal or hilar adenopathy. Esophagus is unremarkable. No hiatal hernia. THYROID: The thyroid is heterogenous. It contains nodules. This should be further evaluated with ultrasound. This can be performed as an outpatient. Largest nodule is again noted in the left thyroid lobe. This measures 9 mm. BONES/JOINTS: There are degenerative findings of the thoracic spine. No suspicious lytic or blastic abnormality. GALLBLADDER AND BILE DUCTS: The gallbladder is surgically absent. CT/CTA Chest W/WO Contrast IMPRESSION: 1. No demonstrated pulmonary embolism or arterial dissection. 2. There is bilateral stable mild pneumonia. 3. The thyroid is heterogenous. It contains nodules. This should be further evaluated with ultrasound. This can be performed as an outpatient. Largest nodule is again noted in the left thyroid lobe. This measures 9 mm. Electronically Signed: Jamar Sue MD at 14:33 EST , Service support ,
--- NOTE | 2021-06-04 14:00 | RAD_ITS ---
STUDY: X-RAY CHEST REASON FOR EXAM: Female, 50 years old. chest pain TECHNIQUE: Single AP portable view of the chest. COMPARISON: 05/22/2021 FINDINGS: Dorsal, spinal stimulator in the lower thoracic spine which is unchanged. The lungs are clear and expanded. There is no demonstrated pleural abnormality. Normal size heart. Normal mediastinum and tony. Normal visualized pulmonary arteries. Normal visualized aortic arch and descending thoracic aorta. Normal visualized thoracic spine. Normal visualized ribs, clavicles, and shoulders. There is no demonstrated abnormality of the visualized soft tissue structures of the upper abdomen. RAD/Chest 1 View (Portable) IMPRESSION: No active disease. Electronically Signed: Georges Vaughan MD at 14:47 EST Tel , Service support ,
--- NOTE | 2021-06-04 15:22 | EDS_ITS ---
HPI History of Present Illness Chief Complaint: Chest Pain Narrative Narrative: Patient presenting for evaluation secondary to chest pain. Patient has an underlying history of ischemic cardiomyopathy, she had cardiac stenting performed earlier this month and actually had a repeat catheterization done on the that showed a patent stent. Patient states that basically since her initial cardiac catheterization she has been dealing with severe chest pain and shortness of breath. She reports that it feels as if her heart is skipping beats. Patient describes the pain as being extremely severe especially when she is having palpitations. Patient has been having issues with exertional dyspnea. She denies any hemoptysis. No recent fevers or cough. Review of systems otherwise negative. [facility] Medical History Atherosclerotic heart disease of [place] coronary artery without angina pectoris Benign hypertension Bilateral interstitial pneumonia Cardiomyopathy, ischemic Chronic low back pain HFrEF (heart failure with reduced ejection fraction) History of non-ST elevation myocardial infarction (NSTEMI) (06/12/20) Hyperglycemia due to type 2 diabetes mellitus Hyperlipidemia Left bundle branch block (LBBB) Non-ischemic cardiomyopathy Nonobstructive atherosclerosis of coronary artery Obesity Status post insertion of nerve stimulator Type 2 diabetes mellitus Home Medications omeprazole 20 mg PO DAILY #30 cap 12/01/18 [Rx Last Taken Unknown] tizanidine 4 mg PO QHS 06/12/20 [History Last Taken Unknown] furosemide 40 mg tablet 40 mg PO DAILY #90 tab 07/11/20 [Rx Last Taken Unknown] glipizide 10 mg tablet, extended release 24 hr 10 mg PO BID tab 07/11/20 [History Last Taken Unknown] ondansetron 4 mg disintegrating tablet 4 mg PO Q6H PRN tab 07/11/20 [History Last Taken Unknown] sucralfate 1 gram tablet 1 g PO 4X/DAY PRN tab 07/11/20 [History Last Taken Unknown] tramadol 50 mg tablet 50 mg PO TID PRN tab 07/11/20 [History Last Taken Unknown] carvedilol 12.5 mg tablet 6.25 mg PO BID #120 tab 03/31/21 [Rx Last Taken Unknown] lisinopril 20 mg tablet 20 mg PO DAILY #90 tab 03/31/21 [Rx Last Taken Unknown] Brilinta 90 mg PO BID #180 tab 05/20/21 [Rx Last Taken Unknown] aspirin 81 mg PO DAILY #60 cap 05/20/21 [Rx Last Taken Unknown] atorvastatin 80 mg PO QHS #60 tab 05/20/21 [Rx Last Taken Unknown] dapagliflozin 5 mg PO DAILY #60 tab 05/20/21 [Rx Last Taken Unknown] isosorbide mononitrate 30 mg PO DAILY #30 tab 05/25/21 [Rx Last Taken Unknown] Allergy/AdvReac Type Severity Reaction Status Date / Time amoxicillin trihydrate AdvReac Vomiting Verified 06/04/21 12:54 [From Augmentin] potassium clavulanate AdvReac Vomiting Verified 06/04/21 12:54 [From Augmentin] Family History Father Myocardial infarction Cancer prostate, leukemia Agent orange exposure Diabetes Sister Diabetes COPD (chronic obstructive pulmonary disease) Surgical History History of back surgery History of cholecystectomy (1991) History of coronary artery stent placement History of hysterectomy History of laparoscopy History of left heart catheterization (05/25/21) History of tonsillectomy Presence of coronary angioplasty implant and graft (~05/19/21) Social History Smoking Status: Former smoker how long ago did patient quit smokin alcohol intake: current alcohol intake frequency: holidays/special occasions only substance use type: does not use caffeine: Yes ROS ROS ED Constitutional Constitutional ED: Denies fever(s) Eyes Eyes: Denies change in vision ENT ENT ED: Denies rhinorrhea or sore throat Cardiovascular Cardiovascular: Reports as per HPI, chest pain and palpitations Respiratory/Chest Respiratory/Chest: Reports cough and dyspnea Gastrointestinal Gastrointestinal: Denies abdominal pain, nausea or vomiting Genitourinary Genitourinary ED: Denies dysuria Musculoskeletal Musculoskeletal: Denies myalgias or neck pain Integumentary Denies rash Neurologic Neurologic: Denies headache(s), paresthesias or weakness Psychiatric Psychiatric: Denies depression Endocrine Endocrinology: Denies polydipsia or polyuria Hematologic/Lymphatic Hematologic/Lymphatic: Denies easy bleeding or easy bruising Allergic/Immunologic Allergic/Immunologic ED: Denies urticaria EXAM Physical Exam Const Vital Signs: 06/04/21 12:51 06/04/21 13:00 06/04/21 13:02 Temperature 97.8 F Temperature Source Temporal Pulse Rate 90 84 Respiratory Rate 24 H 17 Respiratory Effort Short of Breath Respiratory Pattern Tachypnea Blood Pressure 166/81 H 159/70 H Blood Pressure Mean 109 99 Pulse Ox 100 100 Oxygen Delivery Method Room Air Room Air 06/04/21 13:43 Temperature Temperature Source Pulse Rate Respiratory Rate Respiratory Effort Respiratory Pattern Blood Pressure Blood Pressure Mean Pulse Ox 98 Oxygen Delivery Method Room Air Positive well nourished and well developed Constitutional Narrative: Heavyset female somewhat in distress secondary to pain otherwise not in physiologic distress General Appearance ED: well developed and NAD HEENT Reports moist mucous membranes normocephalic and atraumatic Eyes EOMs intact bilaterally Neck no lymphadenopathy, supple and no JVD Chest Wall inspection of chest normal and palpation of chest normal Chest Narrative: No evidence of vesicular rash Resp normal respiratory effort and clear to auscultation bilaterally Auscultation: Negative for rales, rhonchi or wheezes Cardio regular rate, regular rhythm, S1 normal heart sound, S2 normal heart sound and no murmurs Rate: other Other Details: Frequent extrasystoles are noted Peripheral Pulses: radial pulses present and posterior tibial pulses present GI normal to inspection, nondistended, normoactive bowel sounds, soft to palpation and non-tender Extremity normal to inspection Extremity Narrative: Calves are supple no palpable cord General Extremety ED: Negative for edema or tenderness General Extremity: Negative for edema Neuro oriented x3 and no sensory deficits noted Sensorium / Orientation: awake and alert Psych mental status grossly normal Skin no rashes or lesions noted MDM MDM MDM Narrative Medical decision making narrative: Patient presents secondary to chest pain. Reviewed patient's records, she got a drug-eluting stent on the and had a repeat catheterization on the . EKG was obtained which shows the patient's baseline left bundle no significant changes are noted. On telemetry monitoring the patient was noted to have PVCs which she was symptomatic for but did not have any couplets bigeminy or runs of nonsustained ventricular tachycardia. CBC was grossly unremarkable, D-dimer was slightly elevated. Chemistry shows mild hypokalemia at 3.2 with otherwise normal renal function glucose poorly controlled at 378 patient's high-sensitivity troponin was 13 which is significantly lower than her previous. CRP modestly elevated at 6. Patient was treated in the emergency department with aspirin morphine and Zofran. CT angiogram of the patient's chest was noted to be negative for PE. I reevaluated the patient at 1500, she is much more comfortable is still very symptomatic with her PVCs. Patient's reported that she is dealing with significant exertional dyspnea. I believe that this likely is secondary to the patient's poor ejection fraction. Patient has follow-up with cardiology on Tuesday. Recommended that she take it easy over the weekend, continue taking her medications as prescribed and follow-up on Tuesday I do not believe that she would benefit from hospital admission. Patient was given reassurance, she was discharged in improved condition. Lab Data Labs: Laboratory Results - last 24 hr 06/04/21 06/04/21 06/04/21 13:15 13:15 13:15 WBC 6.4 RBC 4.18 L Hgb 13.1 Hct 37.9 MCV 90.7 MCH 31.3 MCHC 34.6 RDW Std Deviation 44.9 H RDW Coeff of Tomi 13.7 Plt Count 215 MPV 10.8 Immature Gran % (Auto) 0.300 Neut % (Auto) 58.3 Lymph % (Auto) 34.6 [place] % (Auto) 5.9 Eos % (Auto) 0.6 Baso % (Auto) 0.3 Absolute Neuts (auto) 3.8 Absolute Lymphs (auto) 2.23 Nucleated RBC % 0 ESR 16 D-Dimer Quant (PE/DVT) 0.58 H* Sodium 137 Potassium 3.2 L Chloride 105 Carbon Dioxide 24.0 Anion Gap 8 BUN 18 Creatinine 1.11 H Estim Creat Clear Calc 51.78 Est GFR (MDRD) Af Amer 67 Est GFR (MDRD) Non-Af 55 L BUN/Creatinine Ratio 16.2 Glucose 378 H Calcium 9.4 Magnesium 2.1 Troponin I High Sens 13 C-React Prot Ext Range 6.42 H Radiography Chest X-Ray - ED: 1 View, Read by ED Physician and Unchanged Diagnostic Testing: Clinical Impression(s) from Imaging Studies Chest CTA 06/04/21 13:55 IMPRESSION: 1. No demonstrated pulmonary embolism or arterial dissection. 2. There is bilateral stable mild pneumonia. 3. The thyroid is heterogenous. It contains nodules. This should be further evaluated with ultrasound. This can be performed as an outpatient. Largest nodule is again noted in the left thyroid lobe. This measures 9 mm. Electronically Signed: Jamar Sue MD at 14:33 EST , Service support , Chest X-Ray 06/04/21 14:00 IMPRESSION: No active disease. Electronically Signed: Georges Vaughan MD at 14:47 EST Tel , Service support , Rhythm Strip Rate: 87 Ectopy: PVC(s) and PAC(s) EKG Initial EKG: Attestation: I personally reviewed and interpreted this EKG as follows: (Sinus rhythm with PACs noted, left bundle branch block morphology, no changes from prior EKG.) Discharge Plan Triage Chief Complaint: Chest Pain ED Provider: Edward Diaz Dx/Rx/DC Orders Clinical Impression: Cardiomyopathy, ischemic, Chest pain Instructions: ED Chest Pain, Uncertain Cause Prescriptions: No Action ondansetron 4 mg tablet,disintegrating 4 mg PO Q6H PRN (Reason: Nausea) RF: 0 sucralfate 1 gram tablet 1 g PO 4X/DAY PRN (Reason: Constipation) RF: 0 glipizide 10 mg tablet extended release 24hr 10 mg PO BID RF: 0 furosemide 40 mg tablet 40 mg PO DAILY Qty: 90 RF: 3 carvedilol 12.5 mg tablet 6.25 mg PO BID Qty: 120 RF: 3 lisinopril 20 mg tablet 20 mg PO DAILY Qty: 90 RF: 3 tramadol 50 mg tablet 50 mg PO TID PRN (Reason: Pain) RF: 0 omeprazole 20 MG capsule 20 mg PO DAILY Qty: 30 RF: 0 tizanidine 4 MG tablet 4 mg PO QHS RF: 0 atorvastatin 80 mg Tablet 80 mg PO QHS Qty: 60 RF: 2 Brilinta 90 mg Tablet 90 mg PO BID Qty: 180 RF: 2 dapagliflozin 5 mg tablet 5 mg PO DAILY Qty: 60 RF: 3 aspirin 81 mg capsule 81 mg PO DAILY Qty: 60 RF: 3 isosorbide mononitrate 30 mg Tablet Extended Release 24 Hr 30 mg PO DAILY Qty: 30 RF: 0 Primary Care Provider: Margo Tatum: Cr Ho MD [STAFF PHYSICIAN] - (Keep your scheduled appointment on Tuesday) Margo Tatum DO [Primary Care Provider] - Disposition Disposition: Home, Self Care
[2021-06-04 15:38] VITALS: BP 126/75; PULSE 71; RESP 16; O2SAT 95
== END 2021-06-04 15:39 | disposition home or self-care (01) ==
PROVIDERS: Emergency Provider Emergency Medicine; PCP Family Medicine
DX: I25.5 Ischemic cardiomyopathy (principal); I25.10 Atherosclerotic heart disease of native coronary artery without angina pectoris; I44.7 Left bundle-branch block, unspecified; I11.0 Hypertensive heart disease with heart failure; I50.22 Chronic systolic (congestive) heart failure; I25.2 Old myocardial infarction; E11.9 Type 2 diabetes mellitus without complications; E78.5 Hyperlipidemia, unspecified; E66.9 Obesity, unspecified; Z68.35 Body mass index [BMI] 35.0-35.9, adult; Z95.5 Presence of coronary angioplasty implant and graft; Z79.84 Long term (current) use of oral hypoglycemic drugs; Z79.82 Long term (current) use of aspirin; Z79.899 Other long term (current) drug therapy; Z87.891 Personal history of nicotine dependence
CPT/HCPCS: 71045; 71275; 80048; 83735; 84484; 85025; 85379; 85652; 86140; 87426; 93005; 96374; 96375; 99285; Q9967; A4216; J2405

== ENCOUNTER 2021-06-07 12:24 | Emergency (ER) | payer MEDICARE, MEDICAID, SELFPAY ==
[2021-06-07 12:25] VITALS: BP 122/92; PULSE 135; RESP 24; TEMP 36.1; BMI 35.3
--- NOTE | 2021-06-07 12:49 | EKG12_ITS ---
Test Reason : CP Blood Pressure : / mmHG Vent. Rate : 089 BPM Atrial Rate : 089 BPM P-R Int : 192 ms QRS Dur : 164 ms QT Int : 438 ms P-R-T Axes : 049 -15 074 degrees QTc Int : 532 ms Sinus rhythm with Premature supraventricular complexes and with occasional Premature ventricular comp lexes Left bundle branch block Abnormal ECG Confirmed by GUCCI GEE, PAT ([id number]), newspaper photo editor GUILLERMO LAROSE ([id number]) on 06/10/2021 10:31:18 AM Referred By: EDEN Confirmed By:PAT DUCKWORTH MD
--- NOTE | 2021-06-07 13:05 | RAD_ITS ---
STUDY: X-RAY CHEST REASON FOR EXAM: Female, 50 years old. chest pain TECHNIQUE: Single AP portable view of the chest. COMPARISON: 06/04/2021 FINDINGS: Dorsal column spinal stimulator which is unchanged. The lungs are clear and expanded. There is no demonstrated pleural abnormality. Normal size heart. Normal mediastinum and tony. Normal visualized pulmonary arteries. Normal visualized aortic arch and descending thoracic aorta. Normal visualized thoracic spine. Normal visualized ribs, clavicles, and shoulders. There is no demonstrated abnormality of the visualized soft tissue structures of the upper abdomen. RAD/Chest 1 View (Portable) IMPRESSION: Normal x-ray examination of the chest. Electronically Signed: Georges Vaughan MD at 13:35 EST Tel , Service support ,
[2021-06-07 13:08] LABS: Absolute Neutrophil Count 3.3 X10^3/uL (2.0-7.7); Basophil# 0.02 X10^3/uL; Basophil% 0.4 % (0-1); Eosinophil# 0.07 X10^3/uL; Eosinophils% 1.3 % (0-5); Hematocrit 38.4 % (37-47); Hemoglobin 13.3 g/dL (12.0-15.0); Mean Corp Hgb Conc 34.6 g/dL (32-36); Mean Corpuscular Volume 89.5 fL (81-99); Mean Platelet Vol. 10.8 fl (6.2-12.0); Monocyte# 0.33 X10^3/uL; Monocyte% 6.2 % (0-10); NRBC Flagged by Analyzer 0 % (0-5); Neutrophil % 61.9 % (47-70); Platelet Count 227 K/mm3 (150-450); RBC Distribution Width CV 13.8 % (11.6-14.6); RBC Distribution Width SD 44.4 fl (35.1-43.9); Red Blood Count 4.29 M/mm3 (4.2-5.4); White Blood Count 5.3 K/mm3 (4.4-11.0)
[2021-06-07 13:20] LABS: Prothrombin Time (Protime)PT. 12.1 SECONDS (11.7-14.9)
[2021-06-07 13:25] LABS: Anion Gap 9 (5-15); BUN 20 mg/dL (7-18); BUN/Creat Ratio 17.5 RATIO (10-20); Calcium,Total 9.5 mg/dL (8.5-10.1); Chloride 105 mmol/L (98-107); Creatinine, Serum 1.14 mg/dL (0.55-1.02); EST Glomerular Filtration Rate 53 mL/min (>60); Est Glom Filt Rate - Afr Amer 65 mL/min (>60); Estimated Creatinine Clearance 50.41 ml/min; Glucose 441 mg/dL (74-106); Potassium 3.3 mmol/L (3.5-5.1); Sodium Level 137 mmol/L (136-145); Troponin-I HS 12 pg/mL (3.0-54.0)
[2021-06-07 13:40] VITALS: BP 138/74; PULSE 82; RESP 16; TEMP 36.4; O2SAT 97
[2021-06-07 15:02] VITALS: BP 137/88; PULSE 76; RESP 15; O2SAT 98
--- NOTE | 2021-06-07 15:15 | ED.VIS.CHEST ---
HPI History of Present Illness Chief Complaint: Chest Pain Narrative Narrative: 50-year-old female presenting with shortness of breath. She feels like she just cannot catch her breath. She denies fever, chills. She states this has been ongoing problem for her. She states that when she goes to sleep she is afraid she is not going to wake up. She is not describing chest pain to me however. Patient does have CAD and cardiac stents. Most recent of which was placed earlier this month. In the [facility] by Dr. Ho. Patient has been to the emergency room since then for similar symptoms like this. [facility] Medical History Atherosclerotic heart disease of [place] coronary artery without angina pectoris Benign hypertension Bilateral interstitial pneumonia Cardiomyopathy, ischemic Chronic low back pain HFrEF (heart failure with reduced ejection fraction) History of non-ST elevation myocardial infarction (NSTEMI) (06/12/20) Hyperglycemia due to type 2 diabetes mellitus Hyperlipidemia Left bundle branch block (LBBB) Non-ischemic cardiomyopathy Nonobstructive atherosclerosis of coronary artery Obesity Status post insertion of nerve stimulator Type 2 diabetes mellitus Home Medications omeprazole 20 mg PO DAILY #30 cap 12/01/18 [Rx Last Taken Unknown] tizanidine 4 mg PO QHS 06/12/20 [History Last Taken Unknown] furosemide 40 mg tablet 40 mg PO DAILY #90 tab 07/11/20 [Rx Last Taken Unknown] glipizide 10 mg tablet, extended release 24 hr 10 mg PO BID tab 07/11/20 [History Last Taken Unknown] ondansetron 4 mg disintegrating tablet 4 mg PO Q6H PRN tab 07/11/20 [History Last Taken Unknown] sucralfate 1 gram tablet 1 g PO 4X/DAY PRN tab 07/11/20 [History Last Taken Unknown] tramadol 50 mg tablet 50 mg PO TID PRN tab 07/11/20 [History Last Taken Unknown] carvedilol 12.5 mg tablet 6.25 mg PO BID #120 tab 03/31/21 [Rx Last Taken Unknown] lisinopril 20 mg tablet 20 mg PO DAILY #90 tab 03/31/21 [Rx Last Taken Unknown] Brilinta 90 mg PO BID #180 tab 05/20/21 [Rx Last Taken Unknown] aspirin 81 mg PO DAILY #60 cap 05/20/21 [Rx Last Taken Unknown] atorvastatin 80 mg PO QHS #60 tab 05/20/21 [Rx Last Taken Unknown] dapagliflozin 5 mg PO DAILY #60 tab 05/20/21 [Rx Last Taken Unknown] isosorbide mononitrate 30 mg PO DAILY #30 tab 05/25/21 [Rx Last Taken Unknown] hydroxyzine HCl 25 mg PO TID PRN #20 tab 06/07/21 [Rx Last Taken Unknown] Allergy/AdvReac Type Severity Reaction Status Date / Time amoxicillin trihydrate AdvReac Vomiting Verified 06/07/21 12:28 [From Augmentin] potassium clavulanate AdvReac Vomiting Verified 06/07/21 12:28 [From Augmentin] Family History Father Myocardial infarction Cancer prostate, leukemia Agent orange exposure Diabetes Sister Diabetes COPD (chronic obstructive pulmonary disease) Surgical History History of back surgery History of cholecystectomy (1991) History of coronary artery stent placement History of hysterectomy History of laparoscopy History of left heart catheterization (05/25/21) History of tonsillectomy Presence of coronary angioplasty implant and graft (~05/19/21) Social History Smoking Status: Former smoker how long ago did patient quit smokin alcohol intake: current alcohol intake frequency: holidays/special occasions only substance use type: does not use caffeine: Yes ROS ROS ED Review of Systems ROS Unobtainable: Denies due to encephalopathy or due to endotracheal tube Constitutional Constitutional ED: Denies fever(s) or subjective Eyes Eyes: Denies none, blurry vision or change in vision ENT ENT ED: Denies rhinorrhea or sore throat Cardiovascular Cardiovascular: Reports as per HPI and orthopnea Respiratory/Chest Respiratory/Chest: Reports dyspnea and orthopnea Gastrointestinal Gastrointestinal: Denies abdominal pain, nausea or vomiting Genitourinary Genitourinary ED: Denies dysuria or hematuria Musculoskeletal Musculoskeletal: Denies arthralgias or myalgias Integumentary Denies rash Neurologic Neurologic: Denies headache(s) or paresthesias Psychiatric Psychiatric: Reports anxiety; Denies depression EXAM Physical Exam Const Vital Signs: 06/07/21 12:25 06/07/21 13:40 06/07/21 13:41 Temperature 97 F L 97.6 F L Temperature Source Temporal Oral Pulse Rate 135 H 82 Respiratory Rate 24 H 16 Respiratory Effort Normal Non-Labored Blood Pressure 122/92 H 138/74 H Blood Pressure Mean 102 95 Pulse Ox 97 Oxygen Delivery Method Room Air 06/07/21 15:02 06/07/21 15:35 06/07/21 16:55 Temperature Temperature Source Pulse Rate 76 62 71 Respiratory Rate 15 15 15 Respiratory Effort Blood Pressure 137/88 H 133/73 H 135/79 H Blood Pressure Mean 104 93 97 Pulse Ox 98 96 96 Oxygen Delivery Method Room Air Room Air Room Air Positive obese General Appearance ED: NAD; Negative for pallor Nutritional Appearance: obese HEENT normocephalic and atraumatic Eyes PERRL General Eye ED: Yes pale conjunctiva Neck no lymphadenopathy and supple Resp normal respiratory effort Effort and Inspection: respiratory distress Extremity normal to inspection General Extremety ED: Negative for edema General Extremity: Negative for edema Neuro oriented x3 Sensorium / Orientation: awake and alert Psych Mood & Affect: anxious and tearful Skin General Skin Exam: Negative for jaundice or pallor Heart Score History: Slightly/Non-Suspicious ECG: Normal Risk Factors: >/= 3 Risk Factors or History of CAD Troponin: </= Normal Limit Score: 2 MDM MDM MDM Narrative Medical decision making narrative: Presenting more with dyspnea than with chest pain. She describes it as anxiety. She states that she does feel like she is anxious. She is scared that she is going to go to sleep and not wake up. I obtain an EKG on my interpretation this is sinus rhythm with PACs and a ventricular of 89/min without significant change from her previous EKG. Chest x-ray my interpretation is no acute cardiopulmonary process. Patient's blood work is unremarkable. High-sensitivity troponin is 12 initially. Delta troponin at 2 hours of 11. I believe that the patient is safe to be discharged home at this point. I think that some of her symptoms are based on anxiety. I will give her some Vistaril. She is a follow-up appoint with Dr. Ho tomorrow. Impression: 1 chest pain 2. Anxiety Lab Data Labs: Laboratory Results - last 24 hr 06/07/21 06/07/21 06/07/21 13:00 13:00 13:00 WBC 5.3 RBC 4.29 Hgb 13.3 Hct 38.4 MCV 89.5 MCH 31.0 MCHC 34.6 RDW Std Deviation 44.4 H RDW Coeff of Tomi 13.8 Plt Count 227 MPV 10.8 Immature Gran % (Auto) 0.200 Neut % (Auto) 61.9 Lymph % (Auto) 30.0 [place] % (Auto) 6.2 Eos % (Auto) 1.3 Baso % (Auto) 0.4 Absolute Neuts (auto) 3.3 Absolute Lymphs (auto) 1.60 Nucleated RBC % 0 PT 12.1 INR 1.0 Sodium 137 Potassium 3.3 L Chloride 105 Carbon Dioxide 23.0 Anion Gap 9 BUN 20 H Creatinine 1.14 H Estim Creat Clear Calc 50.41 Est GFR (MDRD) Af Amer 65 Est GFR (MDRD) Non-Af 53 L BUN/Creatinine Ratio 17.5 Glucose 441 H Calcium 9.5 Troponin I High Sens 12 06/07/21 14:59 WBC RBC Hgb Hct MCV MCH MCHC RDW Std Deviation RDW Coeff of Tomi Plt Count MPV Immature Gran % (Auto) Neut % (Auto) Lymph % (Auto) [place] % (Auto) Eos % (Auto) Baso % (Auto) Absolute Neuts (auto) Absolute Lymphs (auto) Nucleated RBC % PT INR Sodium Potassium Chloride Carbon Dioxide Anion Gap BUN Creatinine Estim Creat Clear Calc Est GFR (MDRD) Af Amer Est GFR (MDRD) Non-Af BUN/Creatinine Ratio Glucose Calcium Troponin I High Sens 11 Radiography Diagnostic Testing: Clinical Impression(s) from Imaging Studies Chest X-Ray 06/07/21 13:05 IMPRESSION: Normal x-ray examination of the chest. Electronically Signed: Georges Vaughan MD at 13:35 EST Tel , Service support , Discharge Plan Triage Chief Complaint: Chest Pain ED Provider: Camilo Ramirez Dx/Rx/DC Orders Instructions: ED Chest Pain, Noncardiac, ED Dyspnea Prescriptions: New hydroxyzine HCl 25 mg tablet 25 mg PO TID PRN (Reason: anxiety) Qty: 20 RF: 0 No Action ondansetron 4 mg tablet,disintegrating 4 mg PO Q6H PRN (Reason: Nausea) RF: 0 sucralfate 1 gram tablet 1 g PO 4X/DAY PRN (Reason: Constipation) RF: 0 glipizide 10 mg tablet extended release 24hr 10 mg PO BID RF: 0 furosemide 40 mg tablet 40 mg PO DAILY Qty: 90 RF: 3 carvedilol 12.5 mg tablet 6.25 mg PO BID Qty: 120 RF: 3 lisinopril 20 mg tablet 20 mg PO DAILY Qty: 90 RF: 3 tramadol 50 mg tablet 50 mg PO TID PRN (Reason: Pain) RF: 0 omeprazole 20 MG capsule 20 mg PO DAILY Qty: 30 RF: 0 tizanidine 4 MG tablet 4 mg PO QHS RF: 0 atorvastatin 80 mg Tablet 80 mg PO QHS Qty: 60 RF: 2 Brilinta 90 mg Tablet 90 mg PO BID Qty: 180 RF: 2 dapagliflozin 5 mg tablet 5 mg PO DAILY Qty: 60 RF: 3 aspirin 81 mg capsule 81 mg PO DAILY Qty: 60 RF: 3 isosorbide mononitrate 30 mg Tablet Extended Release 24 Hr 30 mg PO DAILY Qty: 30 RF: 0 Primary Care Provider: Margo Tatum Referrals: Cr Ho MD [STAFF PHYSICIAN] - As soon as possible Margo Tatum DO [Primary Care Provider] - Disposition Disposition: Home, Self Care Discharge Date/Time: 06/07/21 16:59
[2021-06-07 15:29] LABS: Troponin-I HS 11 pg/mL (3.0-54.0)
[2021-06-07 15:35] VITALS: BP 133/73; PULSE 62; RESP 15; O2SAT 96
[2021-06-07 16:55] VITALS: BP 135/79; PULSE 71; RESP 15; O2SAT 96
[2021-06-07] MEDS: hydrOXYzine PAM 25 MG Capsule PO (16:56)
== END 2021-06-07 16:59 | disposition home or self-care (01) ==
PROVIDERS: Emergency Provider Student in an Organized Health Care Education/Training Program; PCP Family Medicine; Visit Provider Student in an Organized Health Care Education/Training Program
DX: R07.9 Chest pain, unspecified (principal); I11.0 Hypertensive heart disease with heart failure; I50.22 Chronic systolic (congestive) heart failure; I42.8 Other cardiomyopathies; E11.9 Type 2 diabetes mellitus without complications; F41.9 Anxiety disorder, unspecified; I25.10 Atherosclerotic heart disease of native coronary artery without angina pectoris; I25.2 Old myocardial infarction; E78.5 Hyperlipidemia, unspecified; E66.9 Obesity, unspecified; Z68.35 Body mass index [BMI] 35.0-35.9, adult; Z79.84 Long term (current) use of oral hypoglycemic drugs; Z79.82 Long term (current) use of aspirin; Z79.02 Long term (current) use of antithrombotics/antiplatelets; Z79.899 Other long term (current) drug therapy; Z87.891 Personal history of nicotine dependence
CPT/HCPCS: 71045; 80048; 84484; 85025; 85610; 93005; 99285; A4216

== ENCOUNTER 2021-06-09 08:52 | Outpatient (CLI) | payer MEDICARE, MEDICAID, SELFPAY ==
--- NOTE | 2021-06-09 09:03 | CR.ITP_ITS ---
Diagnosis - General Information Admitting Diagnosis: NSTEMI, PCI w/coronary stenting in 06/12/2020. Recently in 05/19/2021 came to the emergecny room with heart failure and reduced EF. Personal Learning Style:: Audio/Visual, Written Barriers to Learning: No Barriers Stage of change r/t lifestyle modifications:: Action Gave educational material for:: Treating Heart Disease, Emotions & Heart Disease, Stress Management & Relaxation, Sleep Disorders & Heart Disease, How The Heart Works, What it means to have Heart Disease, How Coronary Artery Disease is Diagnosed, Heart Procedures, What Heart Medications Do, Risk Factors & Modifications, Living an Active Life, Nutrition - Education/Goals Individual Counseling: Initial Assessment: Abnormal Cholesterol Levels, High Blood Pressure, Overweight/Obesity, Diabetes - Type II DM, Hypertension Cardiac Rehabilitation Goals: 1. Maintain the individual as the primary focus of care. 2. To improve the patient's quality of life. 3. Identification of cardiac risk factors and provide cardiac risk factor management. 4. Enhance the psychosocial status of the patient. 5. Reconditioning enough to allow the paulette ent to resume customary activities. 6. Control symptoms of cardiac disease Personal Goals: Initial Assessment: Improve management of stress and emotions, Improve energy level, Participate in home exercise program, Get back to work, or to resume activities faster, Improve knowledge of cardiac disease, Improve muscle strength and endurance, Improve diet and eating habits (eat healthier), Control risk factors (learn risk factor modification), Other goal: Scale for measuring improvement of personal goals: Enter appropriate number in Comments. 2 = Unchanged. 3 = Slightly Better. 4 = Moderate Improvement. 5 = Met my Goal - Diagnosis & Disease Process Outcomes/Goals: Pt IDs own risk factors & lifestyle modifications by Session 10, Verbalizes symptoms of angina & response by session 3., Pt independently manages Plan/Interventions: Assist Pt to ID & engage in lifestyle modification to reduce CVD risk, Instruct on individual risk factors, Review symptoms of angina & emergency actions, Review secondary diagnosis & identify educational needs. - Safety Referral to Physical Therapy: No Referral to [facility] Case Management: No Fall Risk Assessed:: Yes Assistive Devices:: None Exercise - Initial Assessment - Visit Date of Eval: 06/09/21 Session #:: 0 - Pre-cardiac Rehab eveluation Mets: Pre-: >7 METS for 30 minutes by discharge - Physician Prescribed Exercise Modalities: Treadmill, Rower, Airdyne, NuStep Frequency: 3x/week for 12 weeks [36 sessions] Intensity: 60-80% of age predicted maximum heart rate reserve Target Heart Rate:: 138-155 estimated LVEF 30 Resting Blood Pressure: 121/55 EKG Type: Sinus rhythm w/ premature suprasventricular complexes LBBB - Outcomes & Goals Goals:: Verbalizes understanding of THR, RPE & goal METS by session 6, Documents in home exercise log/reports 30 min aerobic 5 day/wk by DC, Demonstrates accurate pulse taking by DC - Intervention & Plan Exercise Program Goals: Instruct on personal THR & RPE, Instruct on MET level & personal MET goal, Show patient to take own pulse /validate performance until accurate, Instruct on home exercise - Physical Activity Home Exercise Physical Activity - Home Exercise: Safe Exercise, Warm-up, Self-monitoring, Cool-Down, Home Exercise > 30 min Daily, Sitting Time <3 hours/daily - Outcomes & Goals Outcomes/Goals: Demonstrates correct Warm-up/exercise Cool-Down (S3) if = 2.5 METs, Verbalizes symptoms of exercise intolerance by Session 3 (S3), Demonstrate safe equipment use (S3) & follows exercise prescrition (6) - Intervention & Plan Plan/Intervention: Instruct warm-up & cool-down if exercising at > 2 METs, Instruct on symptoms of exercise intolerance & actions to take, Instruct & monitor on saf, Assess intial functional capacity & safety risk Nutrition - Initial Assessment - Program Goals Nutrition Program Goals: LDL <100 optimal. 100 - 129 Near optimal. 130 - 159 Borderline High. 160 - 189 High. Total Cholesterol <200 desirable. 200 - 239 Borderline High. >/= 240 High. HDL < 40 Low >/=60 High. Triglycerides <150 desirable. <199 optimal. VlDL 5 - 40. HgbA1C <7%. BMI <25 Patient has diagnosis of Hyperlipidemia (ICD E78)?: Yes - Visit Date of Assessment:: 06/09/21 Session #:: 0 - pre-cardiac rehab evaluation - Cholesterol/Lipids Triglycerides (mg/dL): 140 - 05/20/2021 Total Cholesterol (mg/dL): 105 LDL Cholesterol (mg/dL): 36 HDL Cholesterol (mg/dL): 41 Determine presence & major risk factors that modify LDL goal: Hypertension or hypertensive medication, Family history of premature CHD in Male < 55 years: female <65 yearsFa, Age men > 45 years; women >/= 55 years Outcomes/Goals: Pt IDs own risk factors & lifestyle modifications by Session 10, Verbalizes symptoms of angina & response by session 3., Pt independently manages Intervention/Plan: Instruct on personal lipid levels & lipid goals/NCEP guidelines, Instruct on cholesterol Referral to dietitian:: Yes - Medical Nutrition Therapy - Diabetes (Other Core Measures) Diabetes Type: Diagnosis Type II ICD-10 E11 Fasting blood glucose:: 144 Hgb A1C (4.2 - 6.3): 9.6% Insulin dependent injection/pump?: Yes Non-Insulin Dependent?: Yes Do you monitor your blood sugar at home?: Yes Referral to Diabetic Clinic:: Yes - Refer to Diabteic Education Outcomes/Goals:: Able to state symptoms of, Able to state, Able to state Intervention/Plan:: Instruct on, Refer to, Instruct on - Weight Mgt (Other Care) Not Applicable: Yes Height: 5 ft 4 in Weight:: 207 lb BMI: 35.5 Diagnosis Overweight/Obesity BMI> 30% ICD-10 E66: Yes Diagnosis High BMI/Morbid Obesity BMI> 35% ICD-10 Z68: Yes Outcomes/Goals: Pt sets, maintains & shows weight loss goal & trend during rehab Intervention/Plan: Instruct on ideal BMI & set weight loss goal w/patient, Assist pt to ID & incorporate diet changes for weight loss by S9, Refer to Structured Weight Loss program as appropriate, Encourage goal of using 250- 300dcal per session for weight loss - Healthy Eating Habits Will attend diet classes:: Yes Outcomes/Goals:: Consume diet rich in vegs,fruits,whole grain/high fiber,fish,lean meat, Limit sat/trans fats,cholesterol & added salts & sugars Intervention/Plan:: Assess current eating habits - Education Gave educational materials for:: Signs & symptoms of hypoglycemia, Signs & symptoms of hyperglycemia, Relate diabetes to coronary artery disease, Healthy eating Nutrition - 30-Day Assessment Nutrition - 60-Day Assessment Nutrition - 90-Day Assessment Nutrition - Final Assessment Medical - Initial Assessment - Visit Date of Eval: 06/09/21 Session #:: 0 - Pre-cardiac rehab evaluation - Medication Compliance Preventative Medication(s):: Aspirin, Ticagrelor/P2Y12 inhibitor, Statin/lipid, Beta timothy Doesn?t believe in the benefits of treatment?: No Believes medications are unnecessary or harmful?: No Has a concern about medication side effects?: No Expresses concern over the cost of medications?: No Outcomes/Goals: Verbalizes medications,desired effect & common side effects @ DC, Pt self-reports following medication regimen, Keeps card in wallet w/medications listed by DC Interventions/plans: Instruct on medication effects & side effects, Review medication list w/patient every two weeks, Instruct importance of taking meds as ordered & assist problem solving - Tobacco Use Tobacco Use: Non-smoker - former smoker How long ago did you quit using tobacco products?: Greater than or equal to 6 months ago Do you use smokeless tobacco?: No Outcomes/Goals: Identify aids/strategies for achieving smoking cessation by session 6 Interventions/plan: Assist pt to develop strategies to achieve/maintain quit date - Hypertension Hypertension Diagnosis:: Hypertension ICD-10 I10 Resting Blood Pressure:: 121/85 [place] [employer] Hypertension Guidelines: [place] [employer] Hypertension Guidelines. Normal BP Less than 120/80. Elevated BP 120/80. Hypertension Stage 1: BP 130-139/80-89. Hypertesnion Stage 2: BP 140 or higher/90 or higher. Hypertension Crisis: BP higher than 180/120 Outcomes/Goals: Able to verbalize/achieve optimal blood pressure <130/80, Incorporates diet changes & exercise for blood pressure control by DC, Other additional outcomes/goals Interventions/plan: Instruct on optimal blood pressure, hypertension & medications, Instruct on effects of sodium, alcohol, stress, exercise &hyp ertension - Tobacco Cessation Referral Smoking Cessation Referral:: No Individual Education/Counseling:: No Education Schedule Given:: Yes Medical- 30-Day Assessment Medical- 60-Day Assessment Medical- 90-Day Assessment Medical - Final Assessment Psychosocial - Initial Assess - VIsit Date of Eval: 06/09/21 Session #:: 0 - pre-cardiac rehab evaluation Not Applicable: Yes History of previous Mental disease:: No - Psychosocial Test Tool Used:: [employer] [facility] QOL Cardiac, PHQ-9 Questionnaire phq-9 Severity: Severity. 1-4 Minimal Depression. 5-9 Mild Depression. 10-14 Moderate Depression. 15-19 Moderately Sever Depression. 20-27 Severe Depression. Rule: - Referral to Behavioral Health PS - Interventions: Yes Attend Stress Management Classes, No Referral to Behavioral Health if PHQ-9 score >9:, No Referral to [facility], No Referral to Physician if PHQ-9 if score is 5-9: - Outcomes/Goals: See list Psychosocial Outcomes/Goals:: ID's personal stressors & 2 strategies to manage stress by discharge - Intervention/Plan: See List Interventions/Plan:: Assess stressors,coping strategies & signs of derpression on admission, Instruct/assist pt to develop coping & personal stress Mgt strategies, Instruct patient to recognize signs & symptoms of depression, Instruct patient to recog Psychosocial - 30-Day Assess Psychosocial - 60-Day Assess Psychosocial - 90-Day Assess Psychosocial - Final Assessmen Patient Health Questionnaire Initial Assessment 1. Little interest or pleasure in doing things: Several days 2. Feeling down, depressed, or hopeless: Not at all 3. Trouble falling or staying asleep, or sleeping too much: More than half the d ays 4. Feeling tired or having little energy: More than half the days 5. Poor appetite or overeating: Not at all 6. Feeling bad about yourself -- or that you are a failure or have let yourself or your family down: Not at all 7. Trouble concentrating on things, such as reading the newspaper or watching television: Not at all 8. Moving or speaking so slowly that other people could have noticed. Or the opposite - being so fidgety or restless that you have been moving around a lot more than usual: Not at all 9. Thoughts that you would be better off , or of hurting yourself in some way: Not at all How difficult have these problems made it for you to do your work, take care of things at home, or get along with other people?: Somewhat difficult Total Score: 5 ROSALBA-Q SV Test - Statements CAD is a disease of the arteries in the heart: False Examples of risk factors for heart disease: True Angina is chest pain or discomfort: True The benefits of resistance training include: I Don't Know Eating more meat and dairy products: True Anti-platelet medications such as aspirin are important: True The only effective way to manage stress: True An exercise warm-up slowly increases heart rate: True Prepared, processed foods usually have high sodium: True Depression is common after a heart attack: I Don't Know The statin medications lower cholesterol: True To control blood pressure, lower the amount of sodium: True If someone gets chest discomfort during walking: False Transfats are partially hydrogenated vegetable oils: True Sleep apnea that is not treated increases the risk: I Don't Know To control cholesterol, one should become a vegetarian: I Don't Know Someone knows if he/she is exercising at the right level: False Diabetes cannot be prevented with exercise & health eating: False Stress is a large risk for heart attack: True Self-Efficacy Initial Assessment We would like to know how confident you are in doing certain activities. Please select your confidence level for:: Select your confidence level for the following using the scale 1-10 where 1 is not at all confident and 10 is totally confident. Your score is the average of all 6 responses. Fatigue: How confident are you that you can keep the fatigue caused by your disease from interfering with the things you want to do? Select Number: 8 Physical Discomfort or Pain: How confident are you that you can keep the physical discomfort or pain of your disease from interfering with the things you want to do? Select Number: 7 Emotional Distress: How confident are you that you can keep the emotional distress caused by your disease from interfering with the things you want to do? Select Number: 10 Other Symptoms or Health Problems: How confident are you that you can keep other symptoms or health problems from interfering with the things you want to do? Select Number: 9 Different Tasks and Activities: How confident are you that you can do the different tasks and activities needed to manage your health condition so as to r educe your need to see a doctor? Select Number: 9 Medication: How confident are you that you can do things other than just taking medication to reduce how much your illness affects your everyday life? Select Number: 9 Total Score:: 8 Nutrition Survey - Nutrition Survey Initial Have you lost >10 lbs over the past 2 months without trying?: No Are you following a special diet at home for diabetes, low fat, or low salt?: Yes Are you interested in meeting with a dietitian for help understanding your diet?: No Do you eat less than 3 meals a day?: Yes Do you eat fatty meats (mercado, sausage, ribs, etc), fried foods, desserts, large amounts of salad dressings, margarine, butter, or cheese most days?: Yes Do you have food allergies? [Enter types in comment field]: No Do you eat in restaurants more than 3 times a week?: No Do you season food with salt, seasoning salt, or garlic salt?: Yes Do you used canned, boxed, frozen meals, or soups, seasoning packets?: Yes Total Score:: 5
--- NOTE | 2021-06-09 09:03 | PCM.CR.HP2 ---
CR - History & Physical - General Arrival date:: 06/09/21 Arrival time:: 09:00 Date of Referral:: 05/19/21 Date of CR Evaluation:: 06/09/21 Referring Physician: Dr. Cr Ho Primary Diagnosis: PCI w/coronary stenting - History of Present Cardiac Event Onset Date: Enter Onset Date of cardiac illnesses in Comment field below Acute Myocardial Infarction within 12 months:: Yes - Non-ST elevated myocardial infarction 06/12/2020, 05/18/2021 PTCA or coronary stenting:: Yes - PCI w/stenting 05/19/2021 Heart or Heart-Lung Transplant:: Yes - 05/19/2021 Type of Symptoms:: 50 yr female presented to emergency room with heart failure with reduced EF, NSTEMI June 2020 recently and had stents in the mid LAD. Were there any complications?: Continue with shortness of breath, fatigue, low endurace level. - Sleep Disorder Evaluation Hx of Sleep Apnea: Yes Do you snore loudly (louder than talking or can be heard through closed doors)?: Yes Do you often feel tired/ fatigued/ sleepy during daytime?: Yes Has anyone observed you stop breathing during sleep?: Yes History of Hypertension (for STOP score): Yes - [place] had home unit but quit using because the face mask made her sufficate and quit wearing it. STOP Results: Positive - Medications Home Medications: Ambulatory Orders Medication Instructions Recorded omeprazole 20 mg PO DAILY #30 cap 12/01/18 tizanidine 4 mg PO QHS 06/12/20 furosemide 40 mg tablet 40 mg PO DAILY #90 tab 07/11/20 glipizide 10 mg tablet, extended 10 mg PO BID tab 07/11/20 release 24 hr ondansetron 4 mg disintegrating 4 mg PO Q6H PRN tab 07/11/20 tablet sucralfate 1 gram tablet 1 g PO 4X/DAY PRN tab 07/11/20 tramadol 50 mg tablet 50 mg PO TID PRN tab 07/11/20 carvedilol 12.5 mg tablet 6.25 mg PO BID #120 tab 03/31/21 aspirin 81 mg PO DAILY #60 cap 05/20/21 isosorbide mononitrate 30 mg PO DAILY #30 tab 05/25/21 hydroxyzine HCl 25 mg PO TID PRN #20 tab 06/07/21 atorvastatin 80 mg tablet 40 mg PO QHS tab 06/08/21 clopidogrel 75 mg tablet 75 mg PO DAILY #90 tab 06/08/21 lisinopril 20 mg tablet 10 mg PO DAILY tab 06/08/21 - Allergies Allergies/Adverse Reactions: Allergies amoxicillin trihydrate [From Augmentin] Adverse Reaction (Verified 06/08/21 13:35) Vomiting potassium clavulanate [From Augmentin] Adverse Reaction (Verified 06/08/21 13:35) Vomiting Advanced Directives - Advanced Directives Power of Organ Assembler: Yes Living Will: Yes Advance Directives Information Provided: No Advance Directives on File: Yes DNR Order?:: No - MOLST See MOLST form: No Past Medical History - Covid-19 Screening Fever: No Unexplained muscle aches: No Current respiratory symptoms: No Upper respiratory infections symptoms: No Gastro-intestinal symptoms: No Xvf-Hnvc-[place] symptoms: No Has tested positive for COVID-19 in last 30 days: No Date of testin11/29/20 - in process of getting the booster vaccine when she had the PR. Had contact w/person w/symptoms or Covid-19 (+) last 14 days: No Has High Risk Exposures ID'd by Health dept/Inf Control team: No 65 years or older:: No Lives in Assisted Living facility:: No Has a chronic lung disease or moderate to severe asthma:: No Has a serious heart condition:: Yes Immunocompromised:: No Severely obese (Body Mass Index of 40 or higher):: No Diabetic:: Yes Has chronic kidney disease undergoing dialysis:: No - Past Medical Illness Medical History: Past Medical History (Last Reviewed 06/08/21 @ 16:07 by Lisha Ibarra PA, PA) Atherosclerotic heart disease of [place] coronary artery without angina pectoris I25.10 Benign hypertension I10 Bilateral interstitial pneumonia J84.9 Cardiomyopathy, ischemic I25.5 Chronic low back pain M54.5, G89.29 HFrEF (heart failure with reduced ejection fraction) I50.20 History of non-ST elevation myocardial infarction (NSTEMI) Onset Date: 06/12/20 I25.2 Hyperglycemia due to type 2 diabetes mellitus E11.65 Hyperlipidemia E78.5 Left bundle branch block (LBBB) I44.7 Non-ischemic cardiomyopathy I42.8 Nonobstructive atherosclerosis of coronary artery I25.10 Obesity E66.9 Status post insertion of nerve stimulator Z96.82 Type 2 diabetes mellitus E11.9 - Past Surgical History Surgical History: Past Surgical History (Last Reviewed 06/08/21 @ 16:07 by Lisha Ibarra PA, PA) History of back surgery Z98.890 x5 History of cholecystectomy Onset Date: 1991 Z90.49 History of coronary artery stent placement Z95.5 PCI-BEATRICE-Mid LAD w/ 2.5 x 15 mm [facility] Stent 05/19/2021 History of hysterectomy Z90.710 History of laparoscopy Z98.890 History of left heart catheterization Onset Date: 05/25/21 Z98.890 06/12/20, 05/25/21 History of tonsillectomy Z90.89 Presence of coronary angioplasty implant and graft Onset Date: ~05/19/21 Z95.5 Successful BEATRICE to mLAD per cardiac cath Dr. Ly 05/19/21 Surgical History: appendectomy, cholecystectomy, hysterectomy, - - Multiple laparoscopies - Family History Summary Family History: Family History (Last Reviewed 06/08/21 @ 16:08 by Lisha HOPPER, PA) Father Myocardial infarction Cancer prostate, leukemia Agent orange exposure Diabetes Sister Diabetes COPD (chronic obstructive pulmonary disease) Social History - Smoking History Smoking Status: Former smoker Hx Smoking Cessation Date: 06/30/98 Hx Tobacco Use: No Hx Smoking Exposure: No - Alcohol Use Alcohol Usage: No - Substance Abuse Hx Substance Use: No - Occupation Occupation (List type of work in comments):: Employed Hours worked per day:: 6 Returned to work on:: 06/10/21 - still feels like she can't breath, very short of breath - Hobbies, Recreation, Social Activities Hobbies: Other - movie theater movies, Recreational Activities: I am able to engage in a few activities Social Environment - Status Marital Status: - Current Living Arrangements Living Environment:: Spouse - Children How many children do you have?: 7 Do any of your children live nearby?: Yes - Safety Do you feel safe in your surroundings?: Yes - Assistance Do you need any assistance at home?: none Review of Systems - Review of Systems Hints: Right click = Denies ([place]ash). Left click = Reports ([place]) Review of Present Symptoms: Reports: Shortness of Breath at Rest - at soem points still feel very short of breath at rest., Shortness of Breath with Exertion, Angina - occurs in her upper back shoulder area., Dizziness/Lightheadedness, Fatigue, Heart Arrhythmia/Irregularities - Sinus rhythm w/frequent supraventricular premature complexes and LBBBB., Appetite - Normal, Appetite - Special Diet - 12-hour fasting lost 140 pounds., Sleep - Normal - off and on, still haev perids where patient cannot sleep - Pain Is Patient Pain Free?: Yes Pain Location: none, back - upper back, shoulders wspecially with periods of dyspnea Risk Factor Assessment - Chief Complaint Chief Complaint: 50 yr old female who resents to cardiac rehab today following recent NSTEMI and PCI w/coroanry stent. Recently she presented ot the emergency room with decreased LVEf 30% and heart faiure. - Vital Signs Temperature: 98.3 F Respiratory Rate: 18 Pulse Ox: 96 Blood Pressure: 121/56 - Pulse Pulse Rate: 80 Pulse Rhythm: Regular - Hypertension Blood Pressure Sitting - Left Arm: 121/56 - Stress Stress: Recent - Blood Cholesterol/Lipids Total Cholesterol (mg/dL) Goal = less than 200 mg/dL: 105 HDL Cholesterol (mg/dL) Goal = less than 40 mg/dL: 41 LDL Cholesterol (mg/dL) Goal = less than 70 mg/dL: 36 Triglycerides (mg/dL) Goal = less than 150 mg/dL: 140 - Diabetes Diabetic History: Type II Nutrition Referral for Diabetes: Yes - Obesity Height: 5 ft 4 in Weight:: 207 lb Weight in Pounds: 207.0 lbs Weight Source: Standing Scale Body Mass Index (BMI): 35.5 Nutritional Referral for Obesity: Yes - Physical Inactivity Physical Inactivity: Reg Exercise 30 min/day, Physically demanding job, Recreational activity - Risk Stratification Risk Guidelines: Lowest Risk: Risk Factor for Dyslipidemia, Risk Factor for Diabetes, Risk Factor for Obesity, Risk Factor for Hypertension, Risk Factor for Sedentary Lifestyle, Risk Factor for Depression - Family History Family History: Family History (Last Reviewed 06/08/21 @ 16:08 by Lisha Ibarra PA, PA) Father Myocardial infarction Cancer Agent orange exposure Diabetes Sister Diabetes COPD (chronic obstructive pulmonary disease) Motivation - Motivation to Participate On a scale of 1 to 10, how prepared are you to commit to attending program?: 8 What do you see as barriers to successfully being able to complete the program?: work schedule may affect attendace, trying to work that out. What do you see as the benefits of succesfully completing the program? In other words, what do you hope to get out of participating in the program?: stronger, healthier. Are there issues you are dealing with that will interfere with completing the program?: shorthness of breath and fatigue Do you have a spouse or signficant other, family or friends who will help support you to complete the program?: yes
[2021-06-09 10:06] VITALS: BP 121/55; BP 121/85; BMI 35.5
[2021-06-09 10:17] VITALS: BP 121/56; PULSE 80; RESP 18; TEMP 36.8; O2SAT 96; BMI 35.5
== END 2021-06-09 23:59 | disposition short-term general hospital (02) ==
LOC: CR 08:56
PROVIDERS: PCP Family Medicine; Referring Provider Internal Medicine Cardiovascular Disease; Visit Provider Internal Medicine Cardiovascular Disease
DX: E78.5 Hyperlipidemia, unspecified (principal); I42.8 Other cardiomyopathies; E11.9 Type 2 diabetes mellitus without complications; E66.9 Obesity, unspecified

== ENCOUNTER 2021-06-16 10:24 | Outpatient (CLI) | payer MEDICARE, MEDICAID, SELFPAY ==
--- NOTE | 2021-06-16 10:26 | US_ITS ---
STUDY: THYROID ULTRASOUND REASON FOR EXAM: Female, 50 years old. Thyroid nodule on CT. TECHNIQUE: Ultrasound evaluation of the thyroid was performed with real-time and static jesus-scale imaging. COMPARISON: CT chest June 04, 2021. FINDINGS: RIGHT LOBE: The right lobe of the thyroid gland measures 5.3 x 1.7 x 1.6 cm. There is a homogeneous echotexture. Follow-up: Nodules midpole measuring 0.6 x 0.5 x 0.5 cm, mid pole measuring 0.6 x 0.3 x 0.4 cm inferior pole measuring 1.7 x 1.0 x 1.2 cm. LEFT LOBE: The left lobe of the thyroid gland measures 5.1 x 2.0 x 1.9 cm. There is a homogeneous echotexture. There are hypoechoic nodules superior pole measuring 1.2 x 0.8 x 0.7 cm, mid pole measuring 0.7 x 0.6 x 0.7 cm and inferior pole hypoechoic nodule with an anechoic center suggestive of fluid, with the nodule measuring 2.9 x 1.9 x 1.7 cm. ISTHMUS: The isthmus measures 5 mm which is mildly enlarged. No nodules identified. . The regional lymph nodes are normal. US/Thyroid IMPRESSION: Thyromegaly. Multiple solid nodules bilaterally. The largest nodule is in the inferior pole left lobe measuring 2.9 x 1.9 x 1.7 cm. Consider biopsy. Electronically Signed: Mark Shah MD at 1:19 EST , Service support ,
== END 2021-06-16 23:59 | disposition short-term general hospital (02) ==
LOC: US 10:24
PROVIDERS: PCP Family Medicine; Referring Provider Family Medicine; Visit Provider Family Medicine
DX: E04.1 Nontoxic single thyroid nodule (principal)
CPT/HCPCS: 76536

== ENCOUNTER 2021-07-06 15:23 | Outpatient (CLI) | payer MEDICARE, MEDICAID, SELFPAY ==
--- NOTE | 2021-07-06 | FLU_PTH ---
PATIENT: PITO CLARK [facility][id number] AGE/SX: 50/F ROOM: RE07/06/[address]: Dr. Arjun Haynes MD : 1970 BED: DIS: 07/06/2021 SPEC #: [id number] RECD: 07/06/21 15:16 STATUS: DAXA ELENOMathew #: [id number] HOWARD: 07/06/21 00:[address]: Arjun Haynes DEPT: CYTOLOGY RECD BY: Yari Chavez ENTERED: 07/07/21 09:34 SP TYPE: Fluid OTHR DR: Dr. Margo Tatum, DO Tissues: Thyroid gland, NOS Procedures: Special Stain Group II Surgery Specimen Level IV Cytospin Fluid HEADER OPERATION: Fine needle aspiration, thyroid PRE-OP DIAGNOSIS: Nontoxic multinodular goiter TISSUE SUBMITTED: Thyroid nodule DIAGNOSIS CYTOLOGY Fine needle aspiration, thyroid nodule (cytospin and cell block): Blood and rare follicular cells. See comment. AM:riley 07/08/2021 COMMENT The specimen is insufficient for full evaluation. Clinical correlation is suggested. CYTOLOGY STUDY Slides are reviewed. CYTOLOGY GROSS Received is 30 ml of light red cloudy fluid labeled with the patient's name and and designated per the requisition as thyroid nodule. Submitted for cytology preparation including cell block. / riley 07/07/2021 TC:5 CPT: 79957, 79914
== END 2021-07-06 23:59 | disposition short-term general hospital (02) ==
LOC: LABSPEC 15:25
PROVIDERS: PCP Family Medicine; Visit Provider Otolaryngology
DX: E04.2 Nontoxic multinodular goiter (principal)
CPT/HCPCS: 88108; 88305; 88313

== ENCOUNTER 2021-07-07 10:07 | Outpatient (CLI) | payer MEDICARE, MEDICAID, SELFPAY ==
[2021-07-07 12:57] LABS: Thyroid Stim Hormone (TSH) 0.04 uIU/mL (0.358-3.74)
[2021-07-08 20:06] LABS: Anti-Thyroglobulin AB < 1.0 IU/mL (0.0-0.9); Thyroglobulin, Serum Qt. 26.3 ng/mL (1.5-38.5); Thyroid Peroxidase AB < 8 IU/mL (0-34)
== END 2021-07-07 23:59 | disposition short-term general hospital (02) ==
PROVIDERS: PCP Family Medicine; Referring Provider Otolaryngology; Visit Provider Otolaryngology
DX: E04.2 Nontoxic multinodular goiter (principal)
CPT/HCPCS: 36415; 84432; 84443; 86376; 86800

== ENCOUNTER 2021-07-08 06:31 | Outpatient (RCR) | payer MEDICARE, MEDICAID, SELFPAY | END 2021-08-03 23:59 | LOC: CR 06:31 | PROVIDERS: PCP Family Medicine; Referring Provider Internal Medicine Cardiovascular Disease; Visit Provider Internal Medicine Cardiovascular Disease | DX: I25.10 Atherosclerotic heart disease of native coronary artery without angina pectoris (principal); I21.4 Non-ST elevation (NSTEMI) myocardial infarction; Z95.5 Presence of coronary angioplasty implant and graft | CPT/HCPCS: 93798 ==

== ENCOUNTER 2021-07-17 11:50 | Observation (INO) | payer MEDICARE, MEDICAID, SELFPAY ==
[2021-07-17] VITALS (9 sets, daily range): BP systolic 103–128; BP diastolic 46–78; PULSE 52–70; RESP 12–18; TEMP 36.1–36.5; O2SAT 96–100; BMI 33.7; BMI 34.0
--- NOTE | 2021-07-17 12:45 | EKG12_ITS ---
Test Reason : SYNCOPE Blood Pressure : / mmHG Vent. Rate : 052 BPM Atrial Rate : 052 BPM P-R Int : 252 ms QRS Dur : 166 ms QT Int : 504 ms P-R-T Axes : 047 -16 -26 degrees QTc Int : 468 ms Sinus bradycardia with 1st degree A-V block Left bundle branch block Abnormal ECG Confirmed by GUCCI GEE, PAT ([id number]), editorial assistant JAYLIN FRANK ([id number]) on 07/21/2021 6:56:13 AM Referred By: MARLINE Confirmed By:PAT DUCKWORTH MD
--- NOTE | 2021-07-17 12:46 | EDS_ITS ---
HPI History of Present Illness Chief Complaint: Syncope Narrative Narrative: Patient presents with her andreina because of lightheadedness and near syncope that she has had for the last 3 days. She has history of diabetes, hypertension, hyperlipidemia, and has had previous MA. She states that she had a stent placed in her heart in May. She states that she has felt near syncopal and that all the blood was rushing to her feet, whenever she stands. She states that all of the things started turning black, and she felt as if she was going to pass out, she never completely had a syncopal episode. She denies any chest pain or shortness of breath, although she was diagnosed with COVID on the fourth, 7 days ago. She states her heart rate has been low which is abnormal for her. [facility] Medical History Atherosclerotic heart disease of [place] coronary artery without angina pectoris Benign hypertension Bilateral interstitial pneumonia Cardiomyopathy, ischemic Chronic low back pain HFrEF (heart failure with reduced ejection fraction) History of non-ST elevation myocardial infarction (NSTEMI) (06/12/20) Hyperglycemia due to type 2 diabetes mellitus Hyperlipidemia Left bundle branch block (LBBB) Non-ischemic cardiomyopathy Nonobstructive atherosclerosis of coronary artery Obesity Status post insertion of nerve stimulator Type 2 diabetes mellitus Home Medications omeprazole 20 mg PO DAILY #30 cap 12/01/18 [Rx Last Taken Unknown] tizanidine 4 mg PO QHS 06/12/20 [History Last Taken Unknown] glipizide 10 mg tablet, extended release 24 hr 10 mg PO BID tab 07/11/20 [History Last Taken Unknown] ondansetron 4 mg disintegrating tablet 4 mg PO Q6H PRN tab 07/11/20 [History Last Taken Unknown] sucralfate 1 gram tablet 1 g PO 4X/DAY PRN tab 07/11/20 [History Last Taken Unknown] tramadol 50 mg tablet 50 mg PO TID PRN tab 07/11/20 [History Last Taken Unknown] aspirin 81 mg PO DAILY #60 cap 05/20/21 [Rx Last Taken Unknown] hydroxyzine HCl 25 mg PO TID PRN #20 tab 06/07/21 [Rx Last Taken Unknown] clopidogrel 75 mg tablet 75 mg PO DAILY #90 tab 06/08/21 [Rx Last Taken Unknown] isosorbide mononitrate 30 mg tablet,extended release 24 hr 30 mg PO DAILY #90 tab 06/29/21 [Rx Last Taken Unknown] atorvastatin 80 mg tablet 80 mg PO QHS #90 tab 07/06/21 [Rx Last Taken Unknown] carvedilol 6.25 mg tablet 6.25 mg PO BID #180 tab 07/06/21 [Rx Last Taken Unknown] furosemide 40 mg tablet 40 mg PO DAILY #90 tab 07/06/21 [Rx Last Taken Unknown] lisinopril 20 mg tablet 20 mg PO DAILY #90 tab 07/06/21 [Rx Last Taken Unknown] potassium chloride 20 mEq tablet,extended release(part/cryst) 20 meq PO DAILY #90 tab 07/07/21 [Rx Last Taken Unknown] Allergy/AdvReac Type Severity Reaction Status Date / Time amoxicillin trihydrate AdvReac Vomiting Verified 07/17/21 11:51 [From Augmentin] potassium clavulanate AdvReac Vomiting Verified 07/17/21 11:51 [From Augmentin] Family History Father Myocardial infarction Cancer prostate, leukemia Agent orange exposure Diabetes Sister Diabetes COPD (chronic obstructive pulmonary disease) Surgical History History of back surgery History of cholecystectomy (1991) History of coronary artery stent placement History of hysterectomy History of laparoscopy History of left heart catheterization (05/25/21) History of tonsillectomy Presence of coronary angioplasty implant and graft (~05/19/21) Social History Smoking Status: Former smoker how long ago did patient quit smokin alcohol intake: current alcohol intake frequency: holidays/special occasions only substance use type: does not use caffeine: Yes ROS ROS ED ROS Narrative Constitutional: No fever, no chills. Positive lightheadedness. HEENT: No sore throat. No neck pain. No loss of vision. No rhinorrhea. Cardiovascular: No chest pain. No palpitations. No pedal edema. Respiratory: No cough, no shortness of breath. Abdominal: No abdominal pain. No nausea. No vomiting. Genitourinary: No dysuria. No hematuria. Musculoskeletal: No myalgias. No arthralgias. Neurologic: No headaches. No dizziness. Positive near syncope/lightheadedness. Generalized weakness. Skin: No rash. No change in color. Psychiatric: No depression. No anxiety. EXAM Physical Exam Narrative Exam Narrative: Afebrile. Vital signs noted. HEENT: Normocephalic. Atraumatic. PERRL, EOMI. Neck soft and supple. No point tenderness or step off. Cardiovascular: Regular rate and rhythm with intermittent bradycardia. No murmurs, rubs, or gallops appreciated. Respiratory: No tachypnea. Lungs clear to auscultation bilaterally. Gastrointestinal: Abdomen soft, nontender, with normoactive bowel sounds. No rebound or guarding. Neurological: Awake. Alert. Nonfocal, nonlateralizing. Skin: No rash. Normal color. No pallor. Musculoskeletal: No pedal edema. Full range of motion extremities. Const Vital Signs: 07/17/21 11:52 07/17/21 12:41 07/17/21 14:24 Temperature 97.0 F L 97.0 F L 97.0 F L Temperature Source Temporal Temporal Temporal Pulse Rate 53 L 70 60 Pulse Rate [Lying] 52 L Pulse Rate [Sitting] 57 L Pulse Rate [Standing] 70 Respiratory Rate 16 16 12 Respiratory Effort Normal Non-Labored Blood Pressure 114/52 L 110/46 L 112/70 Blood Pressure [Lying] 103/63 Blood Pressure [Sitting] 116/77 Blood Pressure [Standing] 110/46 L Blood Pressure Mean 72 67 84 Blood Pressure Mean [Lying] 76 Blood Pressure Mean [Sitting] 90 Blood Pressure Mean [Standing] 67 Pulse Ox 100 Oxygen Delivery Method Room Air Room Air Room Air 07/17/21 14:50 Temperature Temperature Source Pulse Rate 57 L Pulse Rate [Lying] Pulse Rate [Sitting] Pulse Rate [Standing] Respiratory Rate 18 Respiratory Effort Blood Pressure 116/47 L Blood Pressure [Lying] Blood Pressure [Sitting] Blood Pressure [Standing] Blood Pressure Mean 70 Blood Pressure Mean [Lying] Blood Pressure Mean [Sitting] Blood Pressure Mean [Standing] Pulse Ox 99 Oxygen Delivery Method Room Air MDM MDM MDM Narrative Medical decision making narrative: Comprehensive work-up was pursued. With her history of being Covid positive she will only be bolused 500 cc. Her orthostatics are negative. I will obtain an EKG, chest x-ray, and laboratory work. CBC shows white count of 4.5, hemoglobin stable at 13.0. Her D-dimer is elevated 0.70, but is chronically elevated. She has a recent diagnosis of Covid also. She appears mildly dehydrated with a sodium of 135, chloride normal at 106. Her creatinine is elevated 2.24 with a BUN of 53. Orthostatics are negative. She states that she has been having some nausea and vomiting recently. Her high-sensitivity troponin is negative at 12. Her EKG demonstrates sinus bradycardia at 52 bpm with first-degree AV block. Chest x- ray shows no acute process. She was hydrated with 500 mL of normal saline. I'm hesitant to give her a large amount of fluid given her recent Covid diagnosis. RN did report that she did have an episode of chest pain that was fleeting that resolved spontaneously. I did discuss patient with Dr. Thibodeaux who will place the patient on observation in the PCU. She is in stable condition. Lab Data Attestation: I reviewed the patient's lab results. Labs: Laboratory Results - last 24 hr 07/17/21 07/17/21 07/17/21 12:40 12:40 12:40 WBC 4.5 RBC 4.07 L Hgb 13.0 Hct 39.0 MCV 95.8 MCH 31.9 MCHC 33.3 RDW Std Deviation 50.9 H RDW Coeff of Tomi 14.4 Plt Count 188 MPV 10.4 Immature Gran % (Auto) 0.200 Neut % (Auto) 42.9 L Lymph % (Auto) 49.6 H [place] % (Auto) 6.4 Eos % (Auto) 0.7 Baso % (Auto) 0.2 Absolute Neuts (auto) 1.9 L Absolute Lymphs (auto) 2.24 Nucleated RBC % 0 D-Dimer Quant (PE/DVT) 0.70 H* Sodium 135 L Potassium 4.4 Chloride 106 Carbon Dioxide 20.0 L Anion Gap 9 BUN 53 H Creatinine 2.24 H Estim Creat Clear Calc 25.66 Est GFR (MDRD) Af Amer 30 L Est GFR (MDRD) Non-Af 24 L BUN/Creatinine Ratio 23.7 H Glucose 148 H Lactic Acid Calcium 9.3 Total Bilirubin 0.50 AST 18 ALT 25 Alkaline Phosphatase 76 Troponin I High Sens 12 B-Natriuretic Peptide Total Protein 8.1 Albumin 3.7 Globulin 4.4 H Albumin/Globulin Ratio 0.8 L Urine Color Urine Clarity Urine pH Ur Specific [place] Urine Protein Urine Glucose (UA) Urine Ketones Urine Occult Blood Urine Nitrite Urine Bilirubin Urine Urobilinogen Ur Leukocyte Esterase Urine RBC Urine WBC Ur Squamous Epith Cells Urine Bacteria Urine Mucus 07/17/21 07/17/21 07/17/21 12:40 13:11 14:35 WBC RBC Hgb Hct MCV MCH MCHC RDW Std Deviation RDW Coeff of Tomi Plt Count MPV Immature Gran % (Auto) Neut % (Auto) Lymph % (Auto) [place] % (Auto) Eos % (Auto) Baso % (Auto) Absolute Neuts (auto) Absolute Lymphs (auto) Nucleated RBC % D-Dimer Quant (PE/DVT) Sodium Potassium Chloride Carbon Dioxide Anion Gap BUN Creatinine Estim Creat Clear Calc Est GFR (MDRD) Af Amer Est GFR (MDRD) Non-Af BUN/Creatinine Ratio Glucose Lactic Acid 1.2 Calcium Total Bilirubin AST ALT Alkaline Phosphatase Troponin I High Sens B-Natriuretic Peptide 39.8 Total Protein Albumin Globulin Albumin/Globulin Ratio Urine Color Yellow Urine Clarity Clear Urine pH 5.0 Ur Specific [place] 1.010 Urine Protein Negative Urine Glucose (UA) Normal Urine Ketones Negative Urine Occult Blood Negative Urine Nitrite Negative Urine Bilirubin Negative Urine Urobilinogen Normal Ur Leukocyte Esterase 100 H Urine RBC 0 SEEN Urine WBC 5-10 SEEN Ur Squamous Epith Cells 0-5 SEEN Urine Bacteria RARE Urine Mucus 0 SEEN Radiography Diagnostic Testing: Clinical Impression(s) from Imaging Studies Chest X-Ray 07/17/21 14:10 IMPRESSION: No acute abnormality is seen. Electronically Signed: Mario Alberto Joy MD at 14:26 EST , Discharge Plan Dx/Rx/DC Orders Clinical Impression: Chest pain, Acute kidney injury, Acute dehydration, Near syncope Disposition Disposition: Acute Care [facility]
[2021-07-17 12:58] LABS: Absolute Lymphocyte Count 2.24 X10^3/uL (0.83-4.51); Absolute Neutrophil Count 1.9 X10^3/uL (2.0-7.7); Basophil# 0.01 X10^3/uL; Basophil% 0.2 % (0-1); Eosinophil# 0.03 X10^3/uL; Eosinophils% 0.7 % (0-5); Lymphocyte # 2.24 X10^3/ul (0.83-4.51); Lymphocyte % 49.6 % (19-41); Mean Corp Hgb Conc 33.3 g/dL (32-36); Mean Corpuscular Hgb 31.9 pg (27.0-32.0); Mean Corpuscular Volume 95.8 fL (81-99); Mean Platelet Vol. 10.4 fl (6.2-12.0); Monocyte# 0.29 X10^3/uL; Monocyte% 6.4 % (0-10); NRBC Flagged by Analyzer 0 % (0-5); Neutrophil # 1.94 X10^3/uL (2.7-7.7); Neutrophil % 42.9 % (47-70); Platelet Count 188 K/mm3 (150-450); RBC Distribution Width CV 14.4 % (11.6-14.6); RBC Distribution Width SD 50.9 fl (35.1-43.9); Red Blood Count 4.07 M/mm3 (4.2-5.4); White Blood Count 4.5 K/mm3 (4.4-11.0)
[2021-07-17 13:14] LABS: ALB/GLOB Ratio 0.8 RATIO (0.9-2.4); AST(SGOT) 18 U/L (15-37); Alanine Aminotransfer ALT/SGPT 25 U/L (13-56); Albumin, Serum 3.7 g/dL (3.2-5.0); Alkaline Phosphatase 76 U/L (45-117); Anion Gap 9 (5-15); BUN 53 mg/dL (7-18); BUN/Creat Ratio 23.7 RATIO (10-20); Calcium,Total 9.3 mg/dL (8.5-10.1); Chloride 106 mmol/L (98-107); Creatinine, Serum 2.24 mg/dL (0.55-1.02); EST Glomerular Filtration Rate 24 mL/min (>60); Est Glom Filt Rate - Afr Amer 30 mL/min (>60); Estimated Creatinine Clearance 25.66 ml/min; Globulin 4.4 g/dL (2.2-4.2); Glucose 148 mg/dL (74-106); Potassium 4.4 mmol/L (3.5-5.1); Protein, Total 8.1 g/dL (6.4-8.2); Sodium Level 135 mmol/L (136-145); Troponin-I HS 12 pg/mL (3.0-54.0)
[2021-07-17 13:20] LABS: BNP,B-Type NATRIURETIC PEPTIDE 39.8 pg/mL (0-100)
[2021-07-17 13:43] LABS: Lactic Acid 1.2 mmol/L (0.4-1.9)
--- NOTE | 2021-07-17 14:10 | RAD_ITS ---
STUDY: X-RAY CHEST REASON FOR EXAM: Female, 50 years old. CAD . Syncopal episode. TECHNIQUE: Single AP portable view of the chest. COMPARISON: Comparison is made with prior study dated 06/07/2021. FINDINGS: EKG electrode are seen. Electrodes from a TENS unit are seen with the tip at the T7-T8 level. The lungs are clear and expanded. There is no demonstrated pleural abnormality. Normal size heart. Normal mediastinum and tony. Normal visualized pulmonary arteries. Normal visualized aortic arch and descending thoracic aorta. Normal visualized thoracic spine. Normal visualized ribs, clavicles, and shoulders. There is no demonstrated abnormality of the visualized soft tissue structures of the upper abdomen. RAD/Chest 1 View (Portable) IMPRESSION: No acute abnormality is seen. Electronically Signed: Mario Alberto Joy MD at 14:26 EST ,
[2021-07-17 14:43] LABS: Mucous, Urine 0 SEEN /hpf (<or=2+); Red Blood Cells-Urine 0 SEEN /hpf (0-5)
[2021-07-17 14:46] LABS: Color, Urine Yellow (Yellow); Glucose, Dipstick Normal (Normal); Ketone-Dipstick Negative (Negative); Leukocyte Esterase-Dipstick 100 /ul (Negative); Nitrite-Dipstick Negative (Negative); Occult Blood-Urine Negative /ul (Negative); Protein-Dipstick Negative (Negative); Urine Bilirubin Dipstick Negative (Negative); Urine Clarity Clear (Clear); Urine Urobilinogen Normal (Normal)
--- NOTE | 2021-07-17 14:48 | ED.RN ---
PT UP WALKS TO BATHROOM. UPON RETURNING TO ROOM, PT STATES SOB,CP. REQUESTING SOMETHING FOR PAIN. DR MIN. PULSE OX OBTAINED AT 93-94. PT PLACED ON PULSE OX READING AT 100 % AT THIS TIME
[2021-07-17 15:02] LABS: Bacteria RARE /hpf (None Seen); Squamous Epithelial Cells - UA 0-5 SEEN /hpf (5-10); White Blood Cells 5-10 SEEN /hpf (0-5)
--- NOTE | 2021-07-17 15:37 | HP.PCM.HOS_ITS ---
HPI - General General Date of Admission: 07/17/21 Date of Service: 07/17/21 Chief Complaint: Presyncope HPI Narrative PITO CLARK, is a 50 F who presented to the emergency department was [facility] on 07/17/2021 with a chief complaint of presyncope. The patient reports that she was diagnosed with Covid on 07/10/2021 after starting with symptoms on 07/08/2021. She states predominantly her symptoms have included some myalgias, nausea, and intermittent vomiting. She states she was off work for 5 days per their guidelines and return to work on 07/15/2021 but has had persistent nausea and vomiting. She states her oral intake has not been great but she has been taking her medications as recommended. Over the last 3 days s he has had lightheadedness and near syncope. She states that when she stands she feels blood rushing to her feet and that everything starts to turn black and she was feeling as she was going to pass out. She never had a true syncopal episode however. She was noted to be bradycardic in the emergency department and is on rate modulating medications and carvedilol at home. She states that her heart rate is not typically the as low as it is currently and after reviewing records it appears that her heart rate is in the 70s to 90s at baseline. Her blood pressure also appears to be lower than her typical pressure. In the emergency department she was afebrile with heart rates anywhere from 52- 70, blood pressure was 110-116 systolic and 46-70 diastolic, respiratory rate is normal and oxygen saturation is 99 to 100% on room air. Her CBC is overall unremarkable. Her differential shows a marked lymphocytosis. Her BMP shows mild hyponatremia with a sodium of 135 a BUN of 53 and a serum creatinine at 2.24 with her baseline being 18-20 and 1-1.2 respectively. Her serum glucose was 148 and she does have a history of diabetes. Her lactic acid was 1.2 and her LFTs were completely normal. Troponin was obtained and was found to be normal at 12. A UA was performed and shows no signs of infection. A D-dimer was obtained and found to be 0.7. I reviewed previous D-dimers and it appears she has a chronically elevated D-dimer anywhere from 0.58-1.04. A CTA was not performed at this time given her renal function and her chronic D-dimer elevation. She is also not hypoxic or having chest pain. Her chest x-ray shows no acute processes. Her EKG shows normal sinus rhythm with a first-degree heart block and a left bundle branch block. Her left bundle branch is chronic and her CA interval is only slightly longer than what her baseline appears to be. In the emergency department she was treated with IV fluids and given her presyncope her TRAE and her poor oral intake request for observation admission was made. [facility] Medical History Atherosclerotic heart disease of [place] coronary artery without angina pectoris Benign hypertension Bilateral interstitial pneumonia Cardiomyopathy, ischemic Chronic low back pain HFrEF (heart failure with reduced ejection fraction) History of non-ST elevation myocardial infarction (NSTEMI) (06/12/20) Hyperglycemia due to type 2 diabetes mellitus Hyperlipidemia Left bundle branch block (LBBB) Non-ischemic cardiomyopathy Nonobstructive atherosclerosis of coronary artery Obesity Status post insertion of nerve stimulator Type 2 diabetes mellitus Home Medications omeprazole 20 mg PO DAILY #30 cap 12/01/18 [Rx Last Taken Unknown] tizanidine 4 mg PO QHS 06/12/20 [History Last Taken Unknown] glipizide 10 mg tablet, extended release 24 hr 10 mg PO BID tab 07/11/20 [History Last Taken Unknown] sucralfate 1 gram tablet 1 g PO 4X/DAY PRN tab 07/11/20 [History Last Taken Unknown] tramadol 50 mg tablet 50 mg PO TID PRN tab 07/11/20 [History Last Taken Unknown] aspirin 81 mg PO DAILY #60 cap 05/20/21 [Rx Last Taken Unknown] hydroxyzine HCl 25 mg PO TID PRN #20 tab 06/07/21 [Rx Last Taken Unknown] clopidogrel 75 mg tablet 75 mg PO DAILY #90 tab 06/08/21 [Rx Last Taken Unknown] isosorbide mononitrate 30 mg tablet,extended release 24 hr 30 mg PO DAILY #90 tab 06/29/21 [Rx Last Taken Unknown] atorvastatin 80 mg tablet 80 mg PO QHS #90 tab 07/06/21 [Rx Last Taken Unknown] carvedilol 6.25 mg tablet 6.25 mg PO BID #180 tab 07/06/21 [Rx Last Taken Unknown] furosemide 40 mg tablet 40 mg PO DAILY #90 tab 07/06/21 [Rx Last Taken Unknown] lisinopril 20 mg tablet 20 mg PO DAILY #90 tab 07/06/21 [Rx Last Taken Unknown] potassium chloride 20 mEq tablet,extended release(part/cryst) 20 meq PO DAILY #90 tab 07/07/21 [Rx Last Taken Unknown] Allergy/AdvReac Type Severity Reaction Status Date / Time amoxicillin trihydrate AdvReac Vomiting Verified 07/17/21 11:51 [From Augmentin] potassium clavulanate AdvReac Vomiting Verified 07/17/21 11:51 [From Augmentin] Family History Father Myocardial infarction Cancer prostate, leukemia Agent orange exposure Diabetes Sister Diabetes COPD (chronic obstructive pulmonary disease) Surgical History History of back surgery History of cholecystectomy (1991) History of coronary artery stent placement History of hysterectomy History of laparoscopy History of left heart catheterization (05/25/21) History of tonsillectomy Presence of coronary angioplasty implant and graft (~05/19/21) Social History Smoking Status: Former smoker how long ago did patient quit smokin alcohol intake: current alcohol intake frequency: holidays/special occasions only substance use type: does not use caffeine: Yes ROS Constitutional Constitutional: Reports anorexia, fatigue and weakness; Denies change in weight, chills, fever(s), malaise, night sweats or other Eyes Eyes: Denies blurry vision, change in eye color, change in vision, discharge from eye(s), double vision, erythema, eye pain, loss of vision or other ENT HEENT: Denies abnormal hearing, dysphagia, ear pain, epistaxis, headache(s), hearing loss, nasal congestion, nasal discharge, post nasal drip, sinus pressure, sore throat or other Cardiovascular Cardiovascular: Reports other Details: Presyncope ; Denies chest pain, cl audication, dyspnea on exertion, edema, lightheadedness, orthopnea, palpitations, paroxysmal nocturnal dyspnea, rapid heart rate or syncope Respiratory/Chest Respiratory/Chest: Denies cough, dyspnea, excessive phlegm production, hemoptysis, productive cough, shortness of breath at rest, shortness of breath with exertion, wheezing or other Gastrointestinal Gastrointestinal: Reports nausea and vomiting; Denies abdominal pain, coffee ground emesis, constipation, diarrhea, dyspepsia, hematemesis, hematochezia, loose stools, melena or other Genitourinary Genitourinary: Denies burning urination, difficulty urinating, dysuria, hematuria, nocturia, urinary frequency, urinary hesitancy, urinary incontinence, urinary urgency or other Musculoskeletal Musculoskeletal: Reports myalgias; Denies arthralgias, back pain, joint pain, joint stiffness, joint swelling, neck pain or other Neurologic Neurologic: Denies abnormal gait, abnormal speech, confusion, disequilibrium, dizziness, focal weakness, headache(s), numbness, paresthesias, seizure-like activity, seizures, syncope, tingling, tremor(s) or other Psychiatric Psychiatric: Denies anxiety, depression, homicidal ideation, suicidal ideation or other Endocrine Endocrinology: Denies change in body appearance, cold intolerance, excessive sweating, heat intolerance, polydipsia, polyuria or other Hematologic/Lymphatic Hematologic/Lymphatic: Denies anemia, easy bleeding, easy bruising, lymphadenopathy or other Allergic/Immunologic Allergic/Immunologic: Denies rhinitis, hives, eczemia, asthma or other Vital Signs Vital Signs Vital Signs: 07/17/21 11:52 07/17/21 12:41 07/17/21 14:24 Temperature 97.0 F L 97.0 F L 97.0 F L Temperature Source Temporal Temporal Temporal Pulse Rate 53 L 70 60 Pulse Rate [Lying] 52 L Pulse Rate [Sitting] 57 L Pulse Rate [Standing] 70 Respiratory Rate 16 16 12 Respiratory Effort Normal Non-Labored Blood Pressure 114/52 L 110/46 L 112/70 Blood Pressure [Lying] 103/63 Blood Pressure [Sitting] 116/77 Blood Pressure [Standing] 110/46 L Blood Pressure Mean 72 67 84 Blood Pressure Mean [Lying] 76 Blood Pressure Mean [Sitting] 90 Blood Pressure Mean [Standing] 67 Pulse Ox 100 Oxygen Delivery Method Room Air Room Air Room Air 07/17/21 14:50 Temperature Temperature Source Pulse Rate 57 L Pulse Rate [Lying] Pulse Rate [Sitting] Pulse Rate [Standing] Respiratory Rate 18 Respiratory Effort Blood Pressure 116/47 L Blood Pressure [Lying] Blood Pressure [Sitting] Blood Pressure [Standing] Blood Pressure Mean 70 Blood Pressure Mean [Lying] Blood Pressure Mean [Sitting] Blood Pressure Mean [Standing] Pulse Ox 99 Oxygen Delivery Method Room Air Weight Weight: 89.358 kg Body Mass Index (BMI) 33.7 Physical Exam Const alert, oriented x3, no apparent distress, healthy appearing and well nourished Constitutional Narrative: Obese middle-aged white female sitting up in bed, fianc? is at bedside, patient appears nontoxic and is very pleasant General Appearance: cooperative HEENT normocephalic, head/scalp atraumatic, hearing grossly normal bilaterally and moist oral mucous membranes HEENT Narrative: Mallampati is 3, no thrush, tongue piercing present, dentition is good Eyes PERRL, EOMs intact bilaterally and conjunctivae normal Eyes Narrative: No scleral icterus Neck no lymphadenopathy, supple, no JVD and no carotid bruits Neck Narrative: Neck issue thick, trachea is midline, no thyroid enlargement noted on palpation Resp normal respiratory effort, no retractions, no use of accessory muscles and clear to auscultation bilaterally Auscultation: Negative for crackles, rales, rhonchi or wheezes Cardio regular rhythm, S1 normal heart sound, S2 normal heart sound, no murmurs, no rub, no gallops, no clicks and no JVD Cardio Narrative: Slightly bradycardic GI normal to inspection, nondistended, normoactive bowel sounds, soft to palpation, non-tender and non-distended; Negative for hepatosplenomegaly Extremity no clubbing, cyanosis or edema Peripheral Pulses: Yes pulses 2+ throughout Skin no rashes or lesions noted, no wounds, skin turgor normal, no jaundice, no petechiae and no mottling Neuro oriented x3, CN's II-XII intact bilaterally, moves all extremities and no focal motor deficits Neuro Narrative: Mild generalized weakness Sensorium / Orientation: awake and alert Speech: speech normal Psych affect normal Psych Narrative: Appropriately interactive and very pleasant Results Lab / Micro Data Attestation: I reviewed the patient's lab results. Result Diagrams: 07/17/21 12:40 07/17/21 12:40 Labs: Laboratory Results - last 24 hr 07/17/21 12:40: WBC 4.5, RBC 4.07 L, Hgb 13.0, Hct 39.0, MCV 95.8, MCH 31.9, MCHC 33.3, RDW Std Deviation 50.9 H, RDW Coeff of Tomi 14.4, Plt Count 188, MPV 10.4, Immature Gran % (Auto) 0.200, Neut % (Auto) 42.9 L, Lymph % (Auto) 49.6 H, [place] % (Auto) 6.4, Eos % (Auto) 0.7, Baso % (Auto) 0.2, Absolute Neuts (auto) 1.9 L, Absolute Lymphs (auto) 2.24, Nucleated RBC % 0 07/17/21 12:40: D-Dimer Quant (PE/DVT) 0.70 H* 07/17/21 12:40: Sodium 135 L, Potassium 4.4, Chloride 106, Carbon Dioxide 20.0 L , Anion Gap 9, BUN 53 H, Creatinine 2.24 H, Estim Creat Clear Calc 25.66, Est GFR (MDRD) Af Amer 30 L, Est GFR (MDRD) Non-Af 24 L, BUN/Creatinine Ratio 23.7 H , Glucose 148 H, Calcium 9.3, Total Bilirubin 0.50, AST 18, ALT 25, Alkaline Phosphatase 76, Troponin I High Sens 12, Total Protein 8.1, Albumin 3.7, Globulin 4.4 H, Albumin/Globulin Ratio 0.8 L 07/17/21 12:40: B-Natriuretic Peptide 39.8 07/17/21 13:11: Lactic Acid 1.2 07/17/21 14:35: Urine Color Yellow, Urine Clarity Clear, Urine pH 5.0, Ur Specific [place] 1.010, Urine Protein Negative, Urine Glucose (UA) Normal, Urine Ketones Negative, Urine Occult Blood Negative, Urine Nitrite Negative, Urine Bilirubin Negative, Urine Urobilinogen Normal, Ur Leukocyte Esterase 100 H, Urine RBC 0 SEEN, Urine WBC 5-10 SEEN, Ur Squamous Epith Cells 0-5 SEEN, Urine Bacteria RARE, Urine Mucus 0 SEEN Radiology Impression Chest X-Ray 07/17/21 14:10 IMPRESSION: No acute abnormality is seen. Electronically Signed: Mario Alberto Joy MD at 14:26 EST , Assessment & Plan Assessment/Plan (1) Acute kidney injury: (2) Acute dehydration: (3) Near syncope: (4) COVID-19 virus infection: (5) Hyponatremia: (6) Bradycardia: PLAN: Presyncope -Suspect this is related to dehydration and TRAE -Patient takes several oral medications and I suspect that there half-lives have been extended based on her kidney function -Patient received 1 L of IV fluids in the emergency department and we will bolus 1 more liter on the floor and run at 100 cc/h -Hold any potentially offending medications -Blood pressures are currently running lower than she appears to run at baseline -Heart rates are also lower -We will monitor on telemetry -Orthostatic vitals are negative TRAE secondary to dehydration -Patient with nausea and vomiting related to her Covid infection -Patient given 1 L in the emergency department -Run LR at 100 cc/h x 1 bag -Avoid nephrotoxins -Hold home Lasix and lisinopril for now -Repeat BMP in a.m. Bradycardia -Suspect related to medications and prolonged half-time related to TRAE as well as Covid infection -Hold Coreg for now -Patient is currently undergoing thyroid work-up and her most recent TSH is actually low -No need to recheck TSH at this time -Would encourage patient to complete outpatient work-up as has been initiated -Monitor on telemetry -EKG shows chronic left bundle branch block with first-degree heart block--> CA interval is slightly longer than what appears to be her baseline after reviewing previous EKGs Mild hyponatremia -Suspect related to COVID-19 infection plus hypovolemia -Repeat BMP in a.m. Nausea and vomiting -Encourage p.o. intake -As needed Zofran is available -Patient may need sent home with oral/dissolvable antiemetics for the short-term Acute COVID-19 infection -Symptoms started on 07/08/2021 -Tested positive on 07/10/2021 -Patient has been fully vaccinated but not boosted -Patient encouraged to get boosted after discharge -No supplemental oxygen required -Monitor clinically -10 days of isolation which ends tomorrow CAD/HTN/HPL -Patient suffered an NSTEMI on 05/19/2021 -PCI with BEATRICE to LAD -Continue statin -Hold carvedilol and lisinopril for now -we will continue isosorbide mononitrate -Continue aspirin Plavix Nonischemic cardiomyopathy -EF is 35% -Patient does have an ICD -We will hold Lasix for now given marked dehydration Abnormal TSH -Patient is currently undergoing outpatient work-up for this -No current intervention needed at this time -Commend completion of outpatient treatment [id number] -Most recent hemoglobin A1c from 05/20/2021 shows a hemoglobin A1c of 9.6 -Recommend improved control as an outpatient -Hold glipizide for now given renal function -Sliding scale-moderate dose -Accu-Cheks with meals GERD -Continue omeprazole-continue Carafate Chronic pain -Continue tramadol -Continue tizanidine Chronic D-dimer elevation -Upon review patient has had multiple D-dimers and they are all elevated -Current D-dimer is not markedly elevated compared to her baseline -Patient is on room air without significant chest pain -CTA is not warranted at this time -Of note patient did have a CTA on 06/04/2021 for an elevated D-dimer then it was negative for PE DVT prophylaxis -Lovenox -SCDs CODE STATUS -Full code Dispo: -Anticipate stay to be less than 2 midnights and placement admitted as observation Charges/Coding Visit Charges Inpatient E&M: 37787 Init Hosp L3
[2021-07-17] MEDS: Lactated Ringers 1,000 ML 100 ML IV (16:45)
[2021-07-17 16:56] LABS: Bedside Glucose 88 mg/dL (70-110)
[2021-07-17 18:14] LABS: Troponin-I HS 12 pg/mL (3.0-54.0)
[2021-07-17 19:55] LABS: Troponin-I HS 13 pg/mL (3.0-54.0)
[2021-07-17] MEDS: Enoxaparin 40 MG/0.4 ML Syringe SC (22:58)
[2021-07-17] MEDS: Atorvastatin Calcium 80 MG Tablet PO (22:58)
[2021-07-17] MEDS: tiZANidine HCl 2 MG Tablet 4 MG PO (22:59)
[2021-07-18] VITALS (9 sets, daily range): BP systolic 94–134; BP diastolic 47–81; PULSE 62–74; RESP 16–18; TEMP 36.6–37.3; O2SAT 98–100
[2021-07-18] MEDS: Loperamide 2 MG Capsule PO (02:37)
[2021-07-18 06:11] LABS: Absolute Lymphocyte Count 2.21 X10^3/uL (0.83-4.51); Absolute Neutrophil Count 1.5 X10^3/uL (2.0-7.7); Basophil# 0.01 X10^3/uL; Basophil% 0.3 % (0-1); Eosinophil# 0.02 X10^3/uL; Eosinophils% 0.5 % (0-5); Hematocrit 33.5 % (37-47); Hemoglobin 10.9 g/dL (12.0-15.0); Lymphocyte # 2.21 X10^3/ul (0.83-4.51); Lymphocyte % 56.2 % (19-41); Mean Corp Hgb Conc 32.5 g/dL (32-36); Mean Corpuscular Hgb 31.3 pg (27.0-32.0); Mean Corpuscular Volume 96.3 fL (81-99); Mean Platelet Vol. 10.8 fl (6.2-12.0); Monocyte# 0.22 X10^3/uL; Monocyte% 5.6 % (0-10); NRBC Flagged by Analyzer 0 % (0-5); Neutrophil # 1.46 X10^3/uL (2.7-7.7); Neutrophil % 37.1 % (47-70); Platelet Count 159 K/mm3 (150-450); RBC Distribution Width CV 14.1 % (11.6-14.6); RBC Distribution Width SD 49.4 fl (35.1-43.9); Red Blood Count 3.48 M/mm3 (4.2-5.4); White Blood Count 3.9 K/mm3 (4.4-11.0)
[2021-07-18] MEDS: Insulin Lispro 100 UNIT/ML INSULN.PEN SC ×3 (06:40→17:28)
[2021-07-18 07:11] LABS: Bedside Glucose 203 mg/dL (70-110)
[2021-07-18 07:16] LABS: Anion Gap 7 (5-15); BUN 43 mg/dL (7-18); BUN/Creat Ratio 33.1 RATIO (10-20); Calcium,Total 8.6 mg/dL (8.5-10.1); Chloride 113 mmol/L (98-107); EST Glomerular Filtration Rate 46 mL/min (>60); Est Glom Filt Rate - Afr Amer 55 mL/min (>60); Estimated Creatinine Clearance 44.21 ml/min; Glucose 203 mg/dL (74-106); Phosphorus 3.9 mg/dL (2.5-4.9); Potassium 4.3 mmol/L (3.5-5.1); Sodium Level 140 mmol/L (136-145); T4 Free Direct 1.34 ng/dL (0.76-1.46)
[2021-07-18] MEDS: Ondansetron 4 MG/2 ML Vial IV ×2 (10:08→20:35)
[2021-07-18] MEDS: 0.9% Saline Lock 10 ML Syringe IV ×2 (10:08→20:38)
--- NOTE | 2021-07-18 10:08 | PN.HOSP_ITS ---
Subjective Subjective Still some nausea but patient was able to eat her full breakfast without any problem, oral intake has improved. She states that she has had some trouble swallowing because of her enlarged thyroid which she is currently undergoing work-up. Her serum creatinine has improved and she states she is feeling better overall but when she got up to ambulate she had experienced some lightheadedness but no presyncopal type symptoms today. Objective Data Objective Data Vital Signs: Vital Signs Temp Pulse Resp BP Pulse Ox 97.8 F 62 16 94/47 L 100 07/18/21 04:40 07/18/21 07:35 07/18/21 04:40 07/18/21 04:40 07/18/21 04:40 Oxygen Delivery Method Room Air Weight: 89.811 kg Body Mass Index (BMI) 34.0 Intake & Output: Intake and Output for Last 24 Hours 07/16/21 07/17/21 07/18/21 23:59 23:59 23:59 Intake Total 500 / 500 995 / 995 Balance 500 / 500 995 / 995 Lab / Micro Data Result Diagrams: 07/18/21 05:14 07/18/21 05:14 Labs: Laboratory Results - last 24 hr 07/17/21 12:40: WBC 4.5, RBC 4.07 L, Hgb 13.0, Hct 39.0, MCV 95.8, MCH 31.9, MCHC 33.3, RDW Std Deviation 50.9 H, RDW Coeff of Tomi 14.4, Plt Count 188, MPV 10.4, Immature Gran % (Auto) 0.200, Neut % (Auto) 42.9 L, Lymph % (Auto) 49.6 H, [place] % (Auto) 6.4, Eos % (Auto) 0.7, Baso % (Auto) 0.2, Absolute Neuts (auto) 1.9 L, Absolute Lymphs (auto) 2.24, Nucleated RBC % 0 07/17/21 12:40: D-Dimer Quant (PE/DVT) 0.70 H* 07/17/21 12:40: Sodium 135 L, Potassium 4.4, Chloride 106, Carbon Dioxide 20.0 L , Anion Gap 9, BUN 53 H, Creatinine 2.24 H, Estim Creat Clear Calc 25.66, Est GFR (MDRD) Af Amer 30 L, Est GFR (MDRD) Non-Af 24 L, BUN/Creatinine Ratio 23.7 H , Glucose 148 H, Calcium 9.3, Total Bilirubin 0.50, AST 18, ALT 25, Alkaline Phosphatase 76, Troponin I High Sens 12, Total Protein 8.1, Albumin 3.7, Globulin 4.4 H, Albumin/Globulin Ratio 0.8 L 07/17/21 12:40: B-Natriuretic Peptide 39.8 07/17/21 13:11: Lactic Acid 1.2 07/17/21 14:35: Urine Color Yellow, Urine Clarity Clear, Urine pH 5.0, Ur Specific [place] 1.010, Urine Protein Negative, Urine Glucose (UA) Normal, Urine Ketones Negative, Urine Occult Blood Negative, Urine Nitrite Negative, Urine Bilirubin Negative, Urine Urobilinogen Normal, Ur Leukocyte Esterase 100 H, Urine RBC 0 SEEN, Urine WBC 5-10 SEEN, Ur Squamous Epith Cells 0-5 SEEN, Urine Bacteria RARE, Urine Mucus 0 SEEN 07/17/21 16:44: POC Glucose 88 07/17/21 17:40: Troponin I High Sens 12 07/17/21 18:45: Troponin I High Sens 13 07/18/21 05:14: WBC 3.9 L, RBC 3.48 L, Hgb 10.9 L, Hct 33.5 L, MCV 96.3, MCH 31.3, MCHC 32.5, RDW Std Deviation 49.4 H, RDW Coeff of Tomi 14.1, Plt Count 159, MPV 10.8, Immature Gran % (Auto) 0.300, Neut % (Auto) 37.1 L, Lymph % (Auto) 56.2 H, [place] % (Auto) 5.6, Eos % (Auto) 0.5, Baso % (Auto) 0.3, Absolute Neuts (auto) 1.5 L, Absolute Lymphs (auto) 2.21, Nucleated RBC % 0 07/18/21 05:14: Sodium 140, Potassium 4.3, Chloride 113 H, Carbon Dioxide 20.0 L , Anion Gap 7, BUN 43 H, Creatinine 1.30 H, Estim Creat Clear Calc 44.21, Est GFR (MDRD) Af Amer 55 L, Est GFR (MDRD) Non-Af 46 L, BUN/Creatinine Ratio 33.1 H , Glucose 203 H, Calcium 8.6, Phosphorus 3.9, Free T4 1.34 07/18/21 06:34: POC Glucose 203 H Radiography Diagnostic Testing: Radiology Impression Chest X-Ray 07/17/21 14:10 IMPRESSION: No acute abnormality is seen. Electronically Signed: Mario Alberto Joy MD at 14:26 EST , Physical Exam Const alert, oriented x3, no apparent distress, healthy appearing and well nourished Constitutional Narrative: Obese middle-aged white female sitting up in bed, patient appears nontoxic and is very pleasant, watching television and breakfast tray at the bedside which she has consumed almost all of her tray General Appearance: cooperative Exam Limitations: no limitations Nutritional Appearance: obese HEENT normocephalic, head/scalp atraumatic, hearing grossly normal bilaterally and moist oral mucous membranes Head and Scalp: normocephalic Eyes Eyes Narrative: No scleral icterus Resp normal respiratory effort, no retractions, no use of accessory muscles and clear to auscultation bilaterally Auscultation: Negative for crackles, rales, rhonchi or wheezes Cardio regular rate, regular rhythm, S1 normal heart sound, S2 normal heart sound, no murmurs, no rub, no gallops, no clicks and no JVD GI normal to inspection, nondistended, normoactive bowel sounds, soft to palpation, non-tender and non-distended; Negative for hepatosplenomegaly Extremity no clubbing, cyanosis or edema Peripheral Pulses: Yes pulses 2+ throughout Skin no rashes or lesions noted, no wounds, skin turgor normal, no jaundice, no petechiae and no mottling Neuro oriented x3, CN's II-XII intact bilaterally, moves all extremities and no focal motor deficits Neuro Narrative: Mild generalized weakness Sensorium / Orientation: awake and alert Speech: speech normal Assessment & Plan Assessment/Plan (1) Acute kidney injury: (2) Acute dehydration: (3) Near syncope: (4) COVID-19 virus infection: (5) Hyponatremia: (6) Bradycardia: PLAN: Presyncope -Suspect this is related to dehydration and TRAE -Patient takes several oral medications and I suspect that there half-lives have been extended based on her kidney function -Patient has received a total of 2 L IV fluid since admission -Continue to hold any potentially offending medications -Blood pressures are currently running lower than she appears to run at baseline -Will continue to hold antihypertensives -Heart rates are also lower -We will monitor on telemetry -Orthostatic vitals are negative TRAE secondary to dehydration -Patient with nausea and vomiting related to her Covid infection -Improved from 2.24-1.30 today -Still slightly above baseline -We will give IV fluids with LR at 100 cc/h x 5 hours for total of 500 more cc of fluid -P.o. intake seems to be improving -Continue to hold home Lasix and lisinopril -Repeat BMP in a.m. Bradycardia -Suspect related to medications and prolonged half-time related to TRAE as well as Covid infection -Continue to hold Coreg for now -TSH was low but free T4 is normal -Bradycardia has resolved with heart rates now in the 60s -Monitor on telemetry -EKG shows chronic left bundle branch block with first-degree heart block--> [place] interval is slightly longer than what appears to be her baseline after reviewing previous EKGs Mild hyponatremia -Resolved Nausea and vomiting -Encourage p.o. intake -As needed Zofran is available -Patient may need sent home with oral/dissolvable antiemetics for the short-term Acute COVID-19 infection -Symptoms started on 07/08/2021 -Tested positive on 07/10/2021 -Patient has been fully vaccinated but not boosted -Patient encouraged to get boosted after discharge -No supplemental oxygen required -Monitor clinically - isolation completed CAD/HTN/HPL -Patient suffered an NSTEMI on 05/19/2021 -PCI with BEATRICE to LAD -Continue statin -Hold carvedilol and lisinopril for now -Hold nitrate -Continue aspirin and Plavix Nonischemic cardiomyopathy -EF is 35% -Patient does have an ICD -Continue to hold Lasix for now given marked dehydration and reevaluate again t omorrow Abnormal TSH -Patient is currently undergoing outpatient work-up for this -Free T4 is within normal limits -No current intervention needed at this time -recommend completion of outpatient treatment [id number] -Most recent hemoglobin A1c from 05/20/2021 shows a hemoglobin A1c of 9.6 -Recommend improved control as an outpatient -Hold glipizide for now given renal function -Sliding scale-moderate dose -Accu-Cheks with meals GERD -Continue omeprazole-continue Carafate Chronic pain -Continue tramadol -Continue tizanidine Chronic D-dimer elevation -Upon review patient has had multiple D-dimers and they are all elevated -Current D-dimer is not markedly elevated compared to her baseline -Patient is on room air without significant chest pain -CTA is not warranted at this time -Of note patient did have a CTA on 06/04/2021 for an elevated D-dimer then it was negative for PE DVT prophylaxis -Lovenox -SCDs CODE STATUS -Full code Dispo: -Patient unfortunately remains lightheaded with movement--> will need to hold discharge for another 24 hours and reevaluate in the a.m. Charges/Coding Visit Charges Inpatient E&M: 08336 Subs Hosp L2
[2021-07-18] MEDS: Clopidogrel Bisulfate 75 MG Tablet PO (10:13)
[2021-07-18] MEDS: Aspirin 81 MG TAB.CHEW PO (10:13)
[2021-07-18] MEDS: Enoxaparin 40 MG/0.4 ML Syringe SC ×2 (10:14→22:34)
[2021-07-18] MEDS: Pantoprazole Sodium 20 MG Tablet PO (10:15)
[2021-07-18] MEDS: Isosorbide Mononitrate 30 MG Tablet PO (10:15)
[2021-07-18] MEDS: Lactated Ringers 1,000 ML 100 ML IV (10:24)
[2021-07-18 10:59] LABS: Anion Gap 5 (5-15); BUN 36 mg/dL (7-18); Calcium,Total 8.5 mg/dL (8.5-10.1); Chloride 116 mmol/L (98-107); EST Glomerular Filtration Rate 50 mL/min (>60); Est Glom Filt Rate - Afr Amer 61 mL/min (>60); Estimated Creatinine Clearance 47.89 ml/min; Glucose 228 mg/dL (74-106); Potassium 4.4 mmol/L (3.5-5.1); Sodium Level 140 mmol/L (136-145)
[2021-07-18 12:36] LABS: Bedside Glucose 195 mg/dL (70-110)
--- NOTE | 2021-07-18 12:38 | CASEMGMT ---
This RN CM to room with [employer] form, explanantion done-pt voices understanding, and signs [employer] form. Original to chart and copy to pt. Pt voices no further questions/concerns/needs. SStaten ARIELLA CM
[2021-07-18 17:31] LABS: Bedside Glucose 173 mg/dL (70-110)
[2021-07-18] MEDS: MELATONIN 3 MG TABLET PO (22:31)
[2021-07-18] MEDS: tiZANidine HCl 2 MG Tablet 4 MG PO (22:33)
[2021-07-18] MEDS: Atorvastatin Calcium 80 MG Tablet PO (22:33)
[2021-07-18 22:46] LABS: Bedside Glucose 120 mg/dL (70-110)
[2021-07-19 02:00] VITALS: PULSE 62
[2021-07-19 06:00] VITALS: PULSE 63
[2021-07-19 06:08] VITALS: BP 127/62; PULSE 68; RESP 18; TEMP 36.4; O2SAT 97
[2021-07-19 06:30] VITALS: O2SAT 98
[2021-07-19] MEDS: Insulin Lispro 100 UNIT/ML INSULN.PEN SC ×2 (06:31→11:00)
[2021-07-19 06:55] LABS: Anion Gap 6 (5-15); BUN 19 mg/dL (7-18); BUN/Creat Ratio 21.6 RATIO (10-20); Calcium,Total 8.4 mg/dL (8.5-10.1); Chloride 116 mmol/L (98-107); Creatinine, Serum 0.88 mg/dL (0.55-1.02); EST Glomerular Filtration Rate 72 mL/min (>60); Est Glom Filt Rate - Afr Amer 87 mL/min (>60); Estimated Creatinine Clearance 65.31 ml/min; Glucose 159 mg/dL (74-106); Potassium 4.2 mmol/L (3.5-5.1); Sodium Level 143 mmol/L (136-145)
[2021-07-19 07:05] LABS: Bedside Glucose 180 mg/dL (70-110)
[2021-07-19] MEDS: 0.9% Saline Lock 10 ML Syringe IV (07:07)
[2021-07-19] MEDS: Ondansetron 4 MG/2 ML Vial IV (07:07)
[2021-07-19 07:16] VITALS: PULSE 71
[2021-07-19] MEDS: Pantoprazole Sodium 20 MG Tablet PO (10:51)
[2021-07-19] MEDS: Clopidogrel Bisulfate 75 MG Tablet PO (10:51)
[2021-07-19] MEDS: Aspirin 81 MG TAB.CHEW PO (10:51)
[2021-07-19] MEDS: Enoxaparin 40 MG/0.4 ML Syringe SC (10:51)
--- NOTE | 2021-07-19 10:52 | PCM.DC.SUM ---
Providers Date of Admission: 07/17/21 Primary Care Physician: Dr. Margo Tatum DO Reason For Visit: SYNCOPE WITH TRAE Diagnosis Discharge Diagnosis (1) Acute kidney injury: Status: Acute Code(s): N17.9 - Acute kidney failure, unspecified (2) Acute dehydration: Status: Acute Code(s): E86.0 - Dehydration (3) Near syncope: Status: Acute Code(s): R55 - Syncope and collapse (4) COVID-19 virus infection: Status: Acute Code(s): U07.1 - COVID-19 (5) Hyponatremia: Status: Acute Code(s): E87.1 - Hypo-osmolality and hyponatremia (6) Bradycardia: Status: Acute Code(s): R00.1 - Bradycardia, unspecified Medications at Discharge Home Medications omeprazole 20 mg PO DAILY #30 cap 12/01/18 tizanidine 4 mg PO QHS 06/12/20 glipizide 10 mg tablet, extended release 24 hr 10 mg PO BID tab 07/11/20 sucralfate 1 gram tablet 1 g PO 4X/DAY PRN tab 07/11/20 tramadol 50 mg tablet 50 mg PO TID PRN tab 07/11/20 aspirin 81 mg PO DAILY #60 cap 05/20/21 hydroxyzine HCl 25 mg PO TID PRN #20 tab 06/07/21 clopidogrel 75 mg tablet 75 mg PO DAILY #90 tab 06/08/21 isosorbide mononitrate 30 mg tablet,extended release 24 hr 30 mg PO DAILY #90 tab 06/29/21 atorvastatin 80 mg tablet 80 mg PO QHS #90 tab 07/06/21 carvedilol 6.25 mg tablet 6.25 mg PO BID #180 tab 07/06/21 furosemide 40 mg tablet 40 mg PO DAILY #90 tab 07/06/21 lisinopril 20 mg tablet 20 mg PO DAILY #90 tab 07/06/21 potassium chloride 20 mEq tablet,extended release(part/cryst) 20 meq PO DAILY #90 tab 07/07/21 promethazine 25 mg PO TID PRN #21 tab 07/19/21 Hospital Course Operations None Procedures None Summary of Care Provided Minutes Spent on Discharge: 38 Hospital Course: Mrs. Quiros is a 50-year-old female who presented to emergency department at [facility] on 07/17/2021 with chief complaint of presyncope. The patient had been recently diagnosed with COVID-19 on 07/10/2021 and had been having myalgias, nausea with intermittent vomiting and decreased p.o. intake. She had been off work for 5 days and per their guidelines return to work on 07/15/2021. Despite her poor oral intake and decreased fluid intake she continue taking her home medications as recommended. 3 days prior to admission she had been experiencing lightheadedness and near syncope when she stood up. She had no true syncopal events prior to admission and none while she was hospitalized. She was also noted to be bradycardic in the emergency department with heart rates in the 50s. After reviewing records it was noted her baseline heart rates appears to be 70 to 90s. Her blood pressure was also lower than her typical. On admission her CBC was unremarkable however her BMP showed mild hyponatremia with a sodium of 135 and TRAE with a BUN of 53 and a serum creatinine of 2.24. Her baseline serum creatinine was 1.0-1.2. The rest of her work-up was unremarkable other than a mildly elevated D-dimer which appears to be chronic and she had a recent CTA of her chest which was negative for PE. Given her's presyncopal episode she was admitted to PCU. She was orthostatic negative on admission but given her marked TRAE we highly suspected dehydration with decreased renal clearance of her baseline medications as the etiology for her lower than normal blood pressures and her bradycardia along with her presyncopal episodes. Her TRAE resolved with IV hydration and upon discharge her serum creatinine was 0.88. We did hold her Lasix, carvedilol, isosorbide mononitrate, and lisinopril during her hospitalization and recommended holding them until 07/22/2021 at which time she supposed to reinitiate them. Her Lasix was held as noted above but we recommended starting this on 07/21/2021 along with her potassium at that time as well. She persisted having some intermittent nausea with vomiting and she was discharged with Phenergan for this. However, she was able to eat most of her meals without any difficulty. She is also undergoing work-up for an enlarged thyroid and states that she does have trouble swallowing with regards to this and has a follow-up appointment tomorrow with the assistant professor of mathematics. I recommended a soft diet as I suspect that this is potentially causing some gagging as well and resulting in some emesis. Her lightheadedness/presyncopal sensation had resolved prior to discharge and as noted above her renal function had normalized. Her heart rate and blood pressure had normalized as well. She was discharged home in stable condition on 07/19/2021 with the recommendation to follow-up with her PCP in 1 week. Discharge diagnoses: Presyncope-resolved TRAE-resolved Bradycardia-resolved Hyponatremia-resolved Nausea vomiting-improved Acute COVID-19 infection CAD Hypertension Hyperlipidemia Nonischemic cardiomyopathy Thyroid enlargement with abnormal TSH DM-2 uncontrolled GERD Chronic pain Chronic D-dimer elevation Physical Exam Const alert, oriented x3, no apparent distress, healthy appearing and well nourished Constitutional Narrative: Obese middle-aged white female sitting up in bed, patient appears nontoxic and is very pleasant, watching television General Appearance: cooperative, comfortable, well kempt and well developed Orientation / Consciousness: awake Exam Limitations: no limitations Nutritional Appearance: obese HEENT normocephalic, head/scalp atraumatic, hearing grossly normal bilaterally and moist oral mucous membranes HEENT Narrative: Mallampati is 2 3, no thrush, dentition is good Eyes PERRL, EOMs intact bilaterally and conjunctivae normal Eyes Narrative: No scleral icterus Neck no lymphadenopathy, supple, no JVD and no carotid bruits Neck Narrative: Neck issue thick, trachea is midline, the seem full no nodules palpated Resp normal respiratory effort, no retractions, no use of accessory muscles and clear to auscultation bilaterally Auscultation: Negative for crackles, rales, rhonchi or wheezes Cardio regular rate, regular rhythm, S1 normal heart sound, S2 normal heart sound, no murmurs, no rub, no gallops, no clicks and no JVD GI normal to inspection, nondistended, normoactive bowel sounds, soft to palpation, non-tender and non-distended; Negative for hepatosplenomegaly Extremity no clubbing, cyanosis or edema Skin no rashes or lesions noted, no wounds, skin turgor normal, no jaundice, no petechiae and no mottling Neuro oriented x3, CN's II-XII intact bilaterally, moves all extremities and no focal motor deficits Sensorium / Orientation: awake and alert Speech: speech normal Psych affect normal Psych Narrative: Appropriately interactive and very pleasant Weight / BMI Weight Weight: 89.811 kg Body Mass Index (BMI) 34.0 ABG / Lab / Microbiology Data Result Diagrams: 07/18/21 05:14 07/19/21 05:14 Laboratory: Laboratory Results - last 24 hr 07/18/21 10:36: Sodium 140, Potassium 4.4, Chloride 116 H, Carbon Dioxide 19.0 L, Anion Gap 5, BUN 36 H, Creatinine 1.20 H, Estim Creat Clear Calc 47.89, Est GFR (MDRD) Af Amer 61, Est GFR (MDRD) Non-Af 50 L, BUN/Creatinine Ratio 30.0 H, Glucose 228 H, Calcium 8.5 07/18/21 12:32: POC Glucose 195 H 07/18/21 17:26: POC Glucose 173 H 07/18/21 22:31: POC Glucose 120 H 07/19/21 05:14: Sodium 143, Potassium 4.2, Chloride 116 H, Carbon Dioxide 21.0, Anion Gap 6, BUN 19 H, Creatinine 0.88, Estim Creat Clear Calc 65.31, Est GFR (MDRD) Af Amer 87, Est GFR (MDRD) Non-Af 72, BUN/Creatinine Ratio 21.6 H, Glucose 159 H, Calcium 8.4 L 07/19/21 06:30: POC Glucose 180 H D/C Instructions Discharge Diet: Low fat / Low cholesterol, 1800 Calorie Control Diet and - (Recommend soft diet until thyroid issues have been remedied) Discharge Activity: Return to Normal Activity Return to work on: 07/20/21 Meaningful Use Info Meaningful Use Diagnoses (Choose all that apply): None applicable Discharge Plan Admission Admit Date/Time: 07/17/21 15:09 Primary Reason for Your Visit: Presyncope Attending Provider: Damaris Thibodeaux Primary Care Provider: Margo Tatum Instructions Additional Instructions / Restrictions: 1. Please hold medications until instructed to restart Discharge Orders/Prescriptions Prescriptions: New promethazine 25 mg tablet 25 mg PO TID PRN (Reason: nausea and vomiting) Qty: 21 RF: 0 Continued glipizide 10 mg tablet extended release 24hr 10 mg PO BID RF: 0 clopidogrel [Plavix] 75 mg tablet 75 mg PO DAILY Qty: 90 RF: 3 aspirin 81 mg capsule 81 mg PO DAILY Qty: 60 RF: 3 hydroxyzine HCl 25 mg tablet 25 mg PO TID PRN (Reason: anxiety) Qty: 20 RF: 0 atorvastatin 80 mg tablet 80 mg PO QHS Qty: 90 RF: 3 Held isosorbide mononitrate 30 mg tablet extended release 24 hr 30 mg PO DAILY Qty: 90 RF: 3 Hold Instructions: Resume on 07/22/21. furosemide 40 mg tablet 40 mg PO DAILY Qty: 90 RF: 3 Hold Instructions: Resume on 07/21/21. carvedilol 6.25 mg tablet 6.25 mg PO BID Qty: 180 RF: 3 Hold Instructions: Resume on 07/22/21. lisinopril 20 mg tablet 20 mg PO DAILY Qty: 90 RF: 3 Hold Instructions: Resume on 07/22/21. potassium chloride 20 mEq tablet,ER particles/crystals 20 meq PO DAILY Qty: 90 RF: 3 Hold Instructions: Resume on 07/21/21. No Action sucralfate 1 gram tablet 1 g PO 4X/DAY PRN (Reason: Constipation) RF: 0 tramadol 50 mg tablet 50 mg PO TID PRN (Reason: Pain) RF: 0 omeprazole 20 MG capsule 20 mg PO DAILY Qty: 30 RF: 0 tizanidine 4 MG tablet 4 mg PO QHS RF: 0 Referrals / Follow Up: Margo Tatum DO [Primary Care Provider] - In 1 Week Disposition Disposition (needs filled in before D/C Order can be placed): Home, Self Care Charges/Coding Visit Charges Inpatient E&M: 87818 Disch Hosp
[2021-07-19 11:05] LABS: Bedside Glucose 222 mg/dL (70-110)
[2021-07-19 11:40] VITALS: BP 120/56; PULSE 65; RESP 18; TEMP 36.6; O2SAT 97
== END 2021-07-19 11:43 | disposition home or self-care (01) ==
LOC: ED 15:18 → PCU 15:22
PROVIDERS: Admitting Provider Internal Medicine; Emergency Provider Emergency Medicine; PCP Family Medicine; Visit Provider Internal Medicine
DX: R55 Syncope and collapse (principal); N17.9 Acute kidney failure, unspecified; I11.0 Hypertensive heart disease with heart failure; I50.22 Chronic systolic (congestive) heart failure; I42.8 Other cardiomyopathies; E11.9 Type 2 diabetes mellitus without complications; U07.1 COVID-19; I44.0 Atrioventricular block, first degree; G89.29 Other chronic pain; I25.10 Atherosclerotic heart disease of native coronary artery without angina pectoris; K21.9 Gastro-esophageal reflux disease without esophagitis; E78.5 Hyperlipidemia, unspecified; E87.1 Hypo-osmolality and hyponatremia; E86.0 Dehydration; E04.9 Nontoxic goiter, unspecified; I25.2 Old myocardial infarction; I44.7 Left bundle-branch block, unspecified; Z87.891 Personal history of nicotine dependence; Z79.899 Other long term (current) drug therapy; Z79.02 Long term (current) use of antithrombotics/antiplatelets; Z79.82 Long term (current) use of aspirin
CPT/HCPCS: 36415; 71045; 80048; 80053; 81001; 82962; 83605; 83880; 84100; 84439; 84484; 85025; 85379; 93005; 96361; 96372; 96374; 96376; 97802; 99218; 99251; 99285; J7030; J7120; A4216; G0378; G0463; J2405

== ENCOUNTER 2021-07-30 10:10 | Outpatient (CLI) | payer MEDICARE, MEDICAID, SELFPAY ==
--- NOTE | 2021-07-30 | FLU_PTH ---
PATIENT: PITO CLARK LOC: [facility] U#:[id number] AGE/SX: 50/F ROOM: RE07/30/[address]: Dr. Arjun Haynes MD : [id number] BED: DIS: 07/30/2021 SPEC #: [id number] RECD: 07/30/21 09:57 STATUS: DAXA SAVAGE #: [id number] HOWARD: 07/30/21 00:[address]: Arjun Haynes DEPT: CYTOLOGY RECD BY: Yari Chavez ENTERED: 07/30/21 11:20 SP TYPE: Fluid OTHR DR: Dr. Margo Tatum, DO Tissues: Thyroid gland, NOS Procedures: Special Stain Group II Surgery Specimen Level IV Cytospin Fluid HEADER OPERATION: Fine needle aspiration, thyroid PRE-OP DIAGNOSIS: Thyroid nodule TISSUE SUBMITTED: Thyroid nodule fluid DIAGNOSIS CYTOLOGY Fine needle aspiration, left thyroid nodule (cytospin and cell block): Acellular specimen. See comment. AM:riley 07/31/2021 COMMENT The specimen is insufficient for further evaluation. Clinical correlation is suggested. CYTOLOGY STUDY Slides are reviewed. CYTOLOGY GROSS Received is 30 ml of clear colorless fluid labeled with the patient's name and and designated per the requisition as thyroid nodule. Submitted for cytology preparation including cell block. / riley 07/30/2021 TC:5 CPT: 23489, 79604
== END 2021-07-30 23:59 | disposition home or self-care (01) ==
LOC: LABSPEC 10:14
PROVIDERS: PCP Family Medicine; Visit Provider Otolaryngology
DX: E04.1 Nontoxic single thyroid nodule (principal)
CPT/HCPCS: 88108; 88305; 88313

== ENCOUNTER 2021-09-08 19:58 | Inpatient (IN) | payer MEDICARE, MEDICAID, SELFPAY ==
[2021-09-08] VITALS (18 sets, daily range): BP systolic 117–165; BP diastolic 72–102; PULSE 100–172; RESP 14–42; TEMP 35.5–36.3; O2SAT 94–100; BMI 36.3; BMI 35.4
[2021-09-08] MEDS: Etomidate 20 MG/10 ML Vial IV (20:04)
[2021-09-08] MEDS: Succinylcholine Chloride 200 MG/10 ML Vial 100 MG IV (20:05)
--- NOTE | 2021-09-08 20:11 | EKG12_ITS ---
Test Reason : UNRESPONSIVE Blood Pressure : / mmHG Vent. Rate : 140 BPM Atrial Rate : 141 BPM P-R Int : 000 ms QRS Dur : 160 ms QT Int : 366 ms P-R-T Axes : 000 013 065 degrees QTc Int : 558 ms Atrial fibrillation Left bundle branch block Abnormal ECG Confirmed by JAMEL GUSTAFSON MD ([id number]), senior editor GUILLERMO LAROSE ([id number]) on 09/09/2021 2:11:03 PM Referred By: CELINE Confirmed By:JAMEL GUSTAFSON MD
--- NOTE | 2021-09-08 20:14 | EDS_ITS ---
HPI History of Present Illness Chief Complaint: Shortness of Breath Detail of Chief Complaint: Respiratory distress and extremities. Informant: patient and EMS Onset/Context/Timing Onset: Today Current Severity: Severe Maximum Severity: Severe Narrative Narrative: Patient presents in extremis with EMS. She saying help me. Due to her gel nails were unable to get a pulse ox. Patient appears to be in respiratory distress and was mottled. Her level of consciousness was diminishing after initially talking so she was emergently intubated. She was given etomidate and succinylcholine. Intubated in the first attempt. She was really unable to give me any history. I will speak to family. Prior similar symptoms: Yes Recent Illness/Hospitalization: No PFSH [facility] Medical History Atherosclerotic heart disease of [place] coronary artery without angina pectoris Benign hypertension Bilateral interstitial pneumonia Cardiomyopathy, ischemic Chronic low back pain Chronic pain Congestive heart failure (CHF) COPD (chronic obstructive pulmonary disease) COVID-19 virus infection Diabetes Former smoker HFrEF (heart failure with reduced ejection fraction) High cholesterol History of non-ST elevation myocardial infarction (NSTEMI) (06/12/20) Hyperglycemia due to type 2 diabetes mellitus Hyperlipidemia Hypertension Irregular heart beat Kidney stones Left bundle branch block (LBBB) Myocardial infarct Non-ischemic cardiomyopathy Nonobstructive atherosclerosis of coronary artery Obesity Seizures Status post insertion of nerve stimulator Syncope Thyroid nodule Type 2 diabetes mellitus Home Medications omeprazole 20 mg PO DAILY #30 cap 12/01/18 [Rx Last Taken 07/16/21] tizanidine 4 mg PO QHS 06/12/20 [History Last Taken 07/16/21] glipizide 10 mg tablet, extended release 24 hr 10 mg PO BID tab 07/11/20 [History Last Taken 07/16/21] sucralfate 1 gram tablet 1 g PO 4X/DAY PRN tab 07/11/20 [History Last Taken 0 07/16/21] tramadol 50 mg tablet 50 mg PO TID PRN tab 07/11/20 [History Last Taken 07/16/21] aspirin 81 mg PO DAILY #60 cap 05/20/21 [Rx Last Taken 07/16/21] hydroxyzine HCl 25 mg PO TID PRN #20 tab 06/07/21 [Rx Last Taken 07/13/21] clopidogrel 75 mg tablet 75 mg PO DAILY #90 tab 06/08/21 [Rx Last Taken 07/16/21] isosorbide mononitrate 30 mg tablet,extended release 24 hr 30 mg PO DAILY #90 tab 06/29/21 [Rx Last Taken 07/16/21] atorvastatin 80 mg tablet 80 mg PO QHS #90 tab 07/06/21 [Rx Last Taken 07/16/21] carvedilol 6.25 mg tablet 6.25 mg PO BID #180 tab 07/06/21 [Rx Last Taken 07/16/21] furosemide 40 mg tablet 40 mg PO DAILY #90 tab 07/06/21 [Rx Last Taken 07/16/21] lisinopril 20 mg tablet 20 mg PO DAILY #90 tab 07/06/21 [Rx Last Taken 07/16/21] potassium chloride 20 mEq tablet,extended release(part/cryst) 20 meq PO DAILY #90 tab 07/07/21 [Rx Last Taken 07/16/21] promethazine 25 mg PO TID PRN #21 tab 07/19/21 [Rx Last Taken Unknown] Allergy/AdvReac Type Severity Reaction Status Date / Time amoxicillin trihydrate AdvReac Vomiting Verified 07/17/21 11:51 [From Augmentin] potassium clavulanate AdvReac Vomiting Verified 07/17/21 11:51 [From Augmentin] Family History Father Myocardial infarction Cancer prostate, leukemia Agent orange exposure Diabetes Sister Diabetes COPD (chronic obstructive pulmonary disease) Surgical History History of appendectomy History of back surgery History of cholecystectomy (1991) History of cholecystectomy History of coronary artery stent placement History of hysterectomy History of laparoscopy History of left heart catheterization (05/25/21) History of tonsillectomy Presence of coronary angioplasty implant and graft (~05/19/21) Social History (Updated 09/08/21 @ 21:[address] Perlita Gómez MD) household members: significant other Smoking Status: Former smoker how long ago did patient quit smokin alcohol intake: current alcohol intake frequency: holidays/special occasions only substance use type: does not use caffeine: Yes ROS ROS ED ROS Narrative Unable to obtain due to the patient's current medical condition. Review of Systems ROS Unobtainable: due to endotracheal tube EXAM Physical Exam Narrative Exam Narrative: 50-year-old female in respiratory distress. Afebrile 96. Initial blood pressure 117/92. We could not initially get a pulse ox to read. Clinically she was hypoxic. Skin was mottled. H EENT exam unremarkable. She is diaphoretic. Moist mucous membranes. There is a lot of secretions in the posterior pharynx that was suctioned prior to intubation. Neck nontender. Lungs Rales throughout. Heart tachycardic rate about 130. Abdomen soft nontender. Moving all 4 extremities. Neurologically diminished mental status due to respiratory distress. She did not answer questions or follow commands. Const Vital Signs: 09/08/21 19:59 09/08/21 20:04 09/08/21 20:15 Temperature 96 F L Temperature Source Temporal Pulse Rate 137 H 172 H Respiratory Rate 42 H 26 H Respiratory Effort Short of Breath Accessory Muscle Use Pursed Lip Retracting Respiratory Depth Deep Respiratory Pattern Tachypnea Tachypnea Blood Pressure 117/92 H Blood Pressure Mean 100 Pulse Ox 100 96 Oxygen Delivery Method Ambu-Bag Fraction of Inspired Oxygen (FIO2) 100 09/08/21 20:16 09/08/21 20:33 09/08/21 20:38 Temperature Temperature Source Pulse Rate 135 H 130 H 125 H Respiratory Rate 18 26 H 37 H Respiratory Effort Respiratory Depth Respiratory Pattern Blood Pressure 140/84 H 154/99 H Blood Pressure Mean 102 117 Pulse Ox 98 94 Oxygen Delivery Method Mechanical Ventilator Mechanical Ventilator Mechanical Ventilator Fraction of Inspired Oxygen (FIO2) 100 09/08/21 20:45 09/08/21 21:15 09/08/21 21:32 Temperature Temperature Source Pulse Rate 120 H 115 H 114 H Respiratory Rate 32 H Respiratory Effort Respiratory Depth Respiratory Pattern Blood Pressure 165/82 H 148/73 H 153/72 H Blood Pressure Mean 109 98 99 Pulse Ox 96 100 Oxygen Delivery Method Mechanical Ventilator Mechanical Ventilator Fraction of Inspired Oxygen (FIO2) 100 100 09/08/21 22:05 09/08/21 22:07 Temperature Temperature Source Pulse Rate 107 H Respiratory Rate 23 H Respiratory Effort Respiratory Depth Respiratory Pattern Blood Pressure 160/102 H Blood Pressure Mean 121 Pulse Ox 95 Oxygen Delivery Method Mechanical Ventilator Mechanical Ventilator Fraction of Inspired Oxygen (FIO2) 100 100 Positive well nourished, well developed and obese; Negative for cachectic, contractures or unkempt General Appearance ED: well developed and pallor; Negative for unkempt, cachectic, contractures or NAD Nutritional Appearance: obese; Negative for cachectic HEENT Reports moist mucous membranes Negative for atraumatic or trauma Eyes EOMs intact bilaterally General Eye ED: Negative for pale conjunctiva or scleral icterus Neck no lymphadenopathy, supple, no meningeal signs and no JVD General: Negative for tenderness Resp No normal respiratory effort and No clear to auscultation bilaterally Resp Narrative: Severe respiratory distress. Bilateral rales. Auscultation: rales; Negative for rhonchi or wheezes Cardio regular rhythm, S1 normal heart sound, S2 normal heart sound and no murmurs; Negative for regular rate Cardio Narrative: Tachycardia rate around 135. Rate: tachycardic GI non-tender, non-distended and no masses Auscultation: normoactive bowel sounds; Negative for hyperactive bowel sounds Palpation: soft; Negative for tender, guarding or rebound tenderness present Back/Spine normal to inspection Extremity normal to inspection Extremity Narrative: Skin is pale. Mottled. General Extremety ED: Negative for edema or tenderness General Extremity: Negative for edema Neuro Neuro Narrative: Decreased mental status due to respiratory distress and hypoxia. Psych Appearance: Negative for unkempt Skin no wounds Skin Narrative: Model. General Skin Exam: pallor; Negative for jaundice Lesions: no lesions Rashes: no rashes MDM MDM MDM Narrative Medical decision making narrative: 50-year-old female from home with respiratory distress. Clinically appears to be CHF she has a significant past medical hi story. Patient was emergently intubated on first attempt. Good bilateral breath sounds. O2 sats are coming up and currently she is in the mid 90s. She undergo cardiac work-up along with blood cultures, urinalysis and lactic acid. She will be placed on the ventilator. She will be admitted to the ICU. I am going to speak with family when available. Patient doing well after intubation on the ventilator. Her vital signs are stabilizing. She was given IV Lasix for her CHF. I have already spoken to the hospitalist is down evaluate the patient and admitting her to the ICU. Lab Data Attestation: I reviewed the patient's lab results. Lab results narrative: CBC shows a white count of 14.7. H&H 14 and 46. Platelets 280. PT PTT INR unremarkable. Urinalysis shows 10-25 red cells no white cells only 1+ bacteria no nitrites. Chemistries show a gap of 13 BUN of 25 creatinine 1.46. Glucose is elevated 468. Lactic acid 7.6. Troponin is 13. BNP is elevated 618. Blood gas showed a pH of 7.21 PCO2 of 43 PO2 of 101. Bicarb of 17. Labs: Laboratory Results - last 24 hr 09/08/21 09/08/21 09/08/21 20:20 20:26 20:26 WBC 14.7 H RBC 4.74 Hgb 14.6 Hct 46.8 MCV 98.7 MCH 30.8 MCHC 31.2 L RDW Std Deviation 48.1 H RDW Coeff of Tomi 13.1 Plt Count 280 MPV 10.9 Immature Gran % (Auto) 0.400 Neut % (Auto) 54.0 Lymph % (Auto) 42.3 H [place] % (Auto) 2.6 Eos % (Auto) 0.3 Baso % (Auto) 0.4 Absolute Neuts (auto) 7.9 H Absolute Lymphs (auto) 6.24 H Nucleated RBC % 0 Differential Comment Platelet Estimate ADEQUATE RBC Morphology NORM C+C PT 13.6 INR 1.1 APTT 31.1 Sodium Potassium Chloride Carbon Dioxide Anion Gap BUN Creatinine Estim Creat Clear Calc Est GFR (MDRD) Af Amer Est GFR (MDRD) Non-Af BUN/Creatinine Ratio Glucose Lactic Acid Calcium Magnesium Troponin I High Sens B-Natriuretic Peptide Urine Color Yellow Urine Clarity Sl. Cloudy Urine pH 5.0 Ur Specific [place] 1.015 Urine Protein 100 H Urine Glucose (UA) 1000 H Urine Ketones Negative Urine Occult Blood 250 H Urine Nitrite Negative Urine Bilirubin Negative Urine Urobilinogen Normal Ur Leukocyte Esterase Negative Urine RBC 10-25 SEEN Urine WBC 0-5 SEEN Ur Squamous Epith Cells 0 SEEN Ur Transition Epith Cell 0-5 SEEN Urine Bacteria 1+ Urine Mucus 0 SEEN 09/08/21 09/08/21 09/08/21 20:26 20:26 20:26 WBC RBC Hgb Hct MCV MCH MCHC RDW Std Deviation RDW Coeff of Tomi Plt Count MPV Immature Gran % (Auto) Neut % (Auto) Lymph % (Auto) [place] % (Auto) Eos % (Auto) Baso % (Auto) Absolute Neuts (auto) Absolute Lymphs (auto) Nucleated RBC % Differential Comment Platelet Estimate RBC Morphology PT INR APTT Sodium 137 Potassium 4.0 Chloride 105 Carbon Dioxide 19.0 L Anion Gap 13 BUN 25 H Creatinine 1.46 H Estim Creat Clear Calc 39.37 Est GFR (MDRD) Af Amer 48 L Est GFR (MDRD) Non-Af 40 L BUN/Creatinine Ratio 17.1 Glucose 468 H* Lactic Acid 7.6 H* Calcium 9.2 Magnesium Troponin I High Sens 13 B-Natriuretic Peptide 618.5 H Urine Color Urine Clarity Urine pH Ur Specific [place] Urine Protein Urine Glucose (UA) Urine Ketones Urine Occult Blood Urine Nitrite Urine Bilirubin Urine Urobilinogen Ur Leukocyte Esterase Urine RBC Urine WBC Ur Squamous Epith Cells Ur Transition Epith Cell Urine Bacteria Urine Mucus 09/08/21 20:26 WBC RBC Hgb Hct MCV MCH MCHC RDW Std Deviation RDW Coeff of Tomi Plt Count MPV Immature Gran % (Auto) Neut % (Auto) Lymph % (Auto) [place] % (Auto) Eos % (Auto) Baso % (Auto) Absolute Neuts (auto) Absolute Lymphs (auto) Nucleated RBC % Differential Comment Platelet Estimate RBC Morphology PT INR APTT Sodium Potassium Chloride Carbon Dioxide Anion Gap BUN Creatinine Estim Creat Clear Calc Est GFR (MDRD) Af Amer Est GFR (MDRD) Non-Af BUN/Creatinine Ratio Glucose Lactic Acid Calcium Magnesium 2.3 Troponin I High Sens B-Natriuretic Peptide Urine Color Urine Clarity Urine pH Ur Specific [place] Urine Protein Urine Glucose (UA) Urine Ketones Urine Occult Blood Urine Nitrite Urine Bilirubin Urine Urobilinogen Ur Leukocyte Esterase Urine RBC Urine WBC Ur Squamous Epith Cells Ur Transition Epith Cell Urine Bacteria Urine Mucus ABG Data ABG results: ABG 09/08/21 21:14 Specimen Type ART Sample Site L Radial pH 7.22 L Bicarbonate Actual 17.7 L Total CO2 19 Base Excess -10 L O2 Saturation 96 O2 % 100 ABG pCO2 43.9 ABG pO2 101 H Darron Test N/A Respiration Rate 14 O2 Delivery Device Adult Vent Vent Mode AC Tidal Volume 450 POC PEEP 5 Radiography Chest X-Ray - ED: 1 View, Read by ED Physician, Chronic Changes and CHF Diagnostic Testing: Clinical Impression(s) from Imaging Studies Chest X-Ray 09/08/21 20:50 IMPRESSION: Findings most suggest CHF/pulmonary edema. Question of a left hilar mass versus artifact. Consider chest CT if clinically indicated. Support hardware as above. Electronically Signed: Sterling Guardado MD at 21:37 EDT , KUB X-Ray 09/08/21 20:58 IMPRESSION: Enteric tube tip is within the stomach which appears distended and gas-filled. Electronically Signed: Sterling Guardado MD at 21:42 EDT , Chest x-ray, portable, single view shows CHF. ET tube in appropriate position above the henrik. Interpreted by myself. Radiologist also reviewed the films and cannot rule out a left hilar mass. Rhythm Strip Rhythm Strip: Tachycardia Rate: 140 EKG Initial EKG: Attestation: I personally reviewed and interpreted this EKG as follows: Interpretation: No Acute Injury Pattern Comments: Tachycardia with a left bundle branch block rate of 140. This could be A. fib RVR versus other etiologies. Critical Care Time Critical Care Time: Yes Critical care time (excluding procedures): 30-74 minutes, Including time spent:, Discussing w/Patient &/or Family/Attendance Officer, Discussing w/Consultants, Arranging Admission or Transfer, Performing Direct Patient Care at Bedside and - (35 minutes) Discharge Plan Dx/Rx/DC Orders Clinical Impression: Acute respiratory failure, Type 2 diabetes mellitus, Left bundle branch block (LBBB), Congestive heart failure, Difficult intubation Disposition Disposition: Acute Care Hospital [facility]
[2021-09-08] MEDS: LORazepam 2 MG/ML Syringe IV (20:31)
[2021-09-08] MEDS: Propofol 10MG/Ml 1,000 MG/100 ML Bottle 5.8 MG CONT INF (20:31)
[2021-09-08 20:32] LABS: Mucous, Urine 0 SEEN /hpf (<or=2+); Squamous Epithelial Cells - UA 0 SEEN /hpf (5-10)
--- NOTE | 2021-09-08 20:32 | ED.RN ---
Pt screaming im dying on arrival with EMS At approx 1999 patient went unresponsive, agonal respirations and tachycardic pulse. Dr Alvarez, multiple RN's and respiratory at bedside, decision to intubate made.
[2021-09-08 20:38] LABS: Color, Urine Yellow (Yellow); Glucose, Dipstick 1000 mg/dl (Normal); Ketone-Dipstick Negative (Negative); Leukocyte Esterase-Dipstick Negative /ul (Negative); Nitrite-Dipstick Negative (Negative); Occult Blood-Urine 250 /ul (Negative); Protein-Dipstick 100 mg/dl (Negative); Specific Gravity, Urine 1.015 (1.002-1.030); Urine Bilirubin Dipstick Negative (Negative); Urine Clarity Sl. Cloudy (Clear); Urine Urobilinogen Normal (Normal)
[2021-09-08 20:44] LABS: Absolute Lymphocyte Count 6.24 X10^3/uL (0.83-4.51); Absolute Neutrophil Count 7.9 X10^3/uL (2.0-7.7); Basophil# 0.06 X10^3/uL; Basophil% 0.4 % (0-1); Eosinophil# 0.05 X10^3/uL; Eosinophils% 0.3 % (0-5); Hematocrit 46.8 % (37-47); Hemoglobin 14.6 g/dL (12.0-15.0); Lymphocyte # 6.24 X10^3/ul (0.83-4.51); Lymphocyte % 42.3 % (19-41); Mean Corp Hgb Conc 31.2 g/dL (32-36); Mean Corpuscular Hgb 30.8 pg (27.0-32.0); Mean Corpuscular Volume 98.7 fL (81-99); Mean Platelet Vol. 10.9 fl (6.2-12.0); Monocyte# 0.39 X10^3/uL; Monocyte% 2.6 % (0-10); NRBC Flagged by Analyzer 0 % (0-5); Neutrophil # 7.94 X10^3/uL (2.7-7.7); POSITIVE DIFFERENTIAL YES; Platelet Count 280 K/mm3 (150-450); RBC Distribution Width CV 13.1 % (11.6-14.6); RBC Distribution Width SD 48.1 fl (35.1-43.9); Red Blood Count 4.74 M/mm3 (4.2-5.4); White Blood Count 14.7 K/mm3 (4.4-11.0)
[2021-09-08 20:45] LABS: Red Blood Cells-Urine 10-25 SEEN /hpf (0-5)
[2021-09-08 20:46] LABS: White Blood Cells 0-5 SEEN /hpf (0-5)
--- NOTE | 2021-09-08 20:47 | HP.PCM.HOS_ITS ---
HPI - General General Date of Admission: 09/08/21 Date of Service: 09/08/21 Chief Complaint: Sudden onset dyspnea, respiratory failure HPI Narrative The patient is a 50 y/o F w/ PMHx: CKD stage III unclear subtype, COVID-19 07/2021, CAD s/p PCI BEATRICE LAD s/p AICD, Former tobacco use, Systolic CHF/Ischemic cardiomyopathy, HTN, HLD, Diabetes mellitus type II, Chronic pain syndrome s/p spinal nerve stimulatory placement, GERD, KANIKA who presents to the [facility] ED on 09/08/21 with history of severe onset of shortness of breath following awakening f rom a nap noted to be mottled with decreased level of consciousness noted to be in extremitas per EMS upon their arrival screaming for help with immediate emergent intubation secondary to respiratory distress evident. From report per significance patient had had chronic pain injection and been doing well with no dyspnea earlier in the day and denied any recent significant orthopnea, weight gain. Work-up in the ED included T 96 temporally, heart rate 137, BP 117/92, respiratory rate 14 initially 100% on Ambu bag immediately intubated noted to be 98% on high percent FiO2, CBC with WBC 14.7, hemoglobin 14.6, platelet 280 with left shift and lymphopenia, unremarkable coags, BMP with A 19, BUN/creatinine 25/1.46, glucose 468, troponin initial 13, BNP and LA pending upon evaluation, CXR final read pending following recent intubation with evidence congestion, EKG with tachycardia, read as atrial fibrillation but rate considerably too fast to determine if truly atrial fibrillation. In the ED patient administered acetylcholine, etomidate and Ativan and initiated following intubation on prop ofol drip as well as IV Lasix 40 mg x 1. [facility] Medical History Atherosclerotic heart disease of [place] coronary artery without angina pectoris Benign hypertension Bilateral interstitial pneumonia Cardiomyopathy, ischemic Chronic low back pain Chronic pain Congestive heart failure (CHF) COPD (chronic obstructive pulmonary disease) COVID-19 virus infection Diabetes Former smoker HFrEF (heart failure with reduced ejection fraction) High cholesterol History of non-ST elevation myocardial infarction (NSTEMI) (06/12/20) Hyperglycemia due to type 2 diabetes mellitus Hyperlipidemia Hypertension Irregular heart beat Kidney stones Left bundle branch block (LBBB) Myocardial infarct Non-ischemic cardiomyopathy Nonobstructive atherosclerosis of coronary artery Obesity Seizures Status post insertion of nerve stimulator Syncope Thyroid nodule Type 2 diabetes mellitus Home Medications omeprazole 20 mg PO DAILY #30 cap 12/01/18 [Rx Last Taken 07/16/21] tizanidine 4 mg PO QHS 06/12/20 [History Last Taken 07/16/21] glipizide 10 mg tablet, extended release 24 hr 10 mg PO BID tab 07/11/20 [History Last Taken 07/16/21] sucralfate 1 gram tablet 1 g PO 4X/DAY PRN tab 07/11/20 [History Last Taken 07/16/21] tramadol 50 mg tablet 50 mg PO TID PRN tab 07/11/20 [History Last Taken 07/16/21] aspirin 81 mg PO DAILY #60 cap 05/20/21 [Rx Last Taken 07/16/21] hydroxyzine HCl 25 mg PO TID PRN #20 tab 06/07/21 [Rx Last Taken 07/13/21] clopidogrel 75 mg tablet 75 mg PO DAILY #90 tab 06/08/21 [Rx Last Taken 07/16/21] isosorbide mononitrate 30 mg tablet,extended release 24 hr 30 mg PO DAILY #90 tab 06/29/21 [Rx Last Taken 07/16/21] atorvastatin 80 mg tablet 80 mg PO QHS #90 tab 07/06/21 [Rx Last Taken 07/16/21] carvedilol 6.25 mg tablet 6.25 mg PO BID #180 tab 07/06/21 [Rx Last Taken 07/16/21] furosemide 40 mg tablet 40 mg PO DAILY #90 tab 07/06/21 [Rx Last Taken 07/16/21] lisinopril 20 mg tablet 20 mg PO DAILY #90 tab 07/06/21 [Rx Last Taken 07/16/21] potassium chloride 20 mEq tablet,extended release(part/cryst) 20 meq PO DAILY #90 tab 07/07/21 [Rx Last Taken 07/16/21] promethazine 25 mg PO TID PRN #21 tab 07/19/21 [Rx Last Taken Unknown] Allergy/AdvReac Type Severity Reaction Status Date / Time amoxicillin trihydrate AdvReac Vomiting Verified 07/17/21 11:51 [From Augmentin] potassium clavulanate AdvReac Vomiting Verified 07/17/21 11:51 [From Augmentin] Family History Father Myocardial infarction Cancer prostate, leukemia Agent orange exposure Diabetes Sister Diabetes COPD (chronic obstructive pulmonary disease) Surgical History History of appendectomy History of back surgery History of cholecystectomy (1991) History of cholecystectomy History of coronary artery stent placement History of hysterectomy History of laparoscopy History of left heart catheterization (05/25/21) History of tonsillectomy Presence of coronary angioplasty implant and graft (~05/19/21) Social History (Updated 09/08/21 @ 21:[address] Perlita Gómez MD) household members: significant other Smoking Status: Former smoker how long ago did patient quit smokin alcohol intake: current alcohol intake frequency: holidays/special occasions only substance use type: does not use caffeine: Yes ROS Review of Systems ROS Unobtainable: due to encephalopathy and due to endotracheal tube Vital Signs Vital Signs Vital Signs: 09/08/21 19:59 09/08/21 20:04 09/08/21 20:16 Temperature 96 F L Temperature Source Temporal Pulse Rate 137 H 135 H Respiratory Rate 42 H 18 Respiratory Effort Short of Breath Accessory Muscle Use Pursed Lip Retracting Respiratory Depth Deep Respiratory Pattern Tachypnea Blood Pressure 117/92 H 140/84 H Blood Pressure Mean 100 102 Pulse Ox 100 98 Oxygen Delivery Method Ambu-Bag Mechanical Ventilator Fraction of Inspired Oxygen (FIO2) 100 09/08/21 20:33 09/08/21 20:38 Temperature Temperature Source Pulse Rate 130 H 125 H Respiratory Rate 26 H 37 H Respiratory Effort Respiratory Depth Respiratory Pattern Blood Pressure 154/99 H Blood Pressure Mean 117 Pulse Ox 94 Oxygen Delivery Method Mechanical Ventilator Mechanical Ventilator Fraction of Inspired Oxygen (FIO2) Weight Weight: 212 lb 1.355 oz Body Mass Index (BMI) 36.3 Physical Exam Narrative Physical Examination: General: Intubated, sedated, unable to answer any orientation questions, intubated, sedated, had been in significant respiratory distress. Skin: Normal color, normal turgor, no icterus, no cyanosis except occasional staged ecchymoses. HEENT: AT/NC, EOM unable to be assessed well given intubated and sedated status, PERRLA, mildly dry MM, ET tube in place, no carotid bruits, unable to discern JVD secondary to very thickened neck Lungs: Intubated, sedated, symmetric rise, patient presented in significant respiratory distress with tachypnea, increased work of breathing and accessory muscle usage, diffuse rales, no obvious wheezing or rhonchi. Heart: Tachycardic, improved; no gallop, rub audible. Abdomen: Soft, obese, no obvious grimacing with palpation however patient is intubated and sedated, ND, distant mildly hypoactive BS, no obvious evidence of HSM; however, habitus makes examination difficult. Extremities: No cyanosis, clubbing, or edema. Neurological: Intubated, sedated, unable to answer any orientation questions, intubated, sedated, had been in significant respiratory distress, cognitive function not currently based intact; pupils equally reactive to light and accommodation, cranial nerves unable to be assessed will given intubated and sedated status, prior to increase sedation patient moving to stimuli, strength severely global decreased Psychiatric: Affect appears sedated, intubated, had been significantly agitated prior to this screaming that she could not breathe, currently no acute evidence of depressive or anxiety feelings. Results Lab / Micro Data Result Diagrams: 09/08/21 20:26 09/08/21 20:26 Labs: Laboratory Results - last 24 hr 09/08/21 20:20: Urine Color Yellow, Urine Clarity Sl. Cloudy, Urine pH 5.0, Ur Specific [place] 1.015, Urine Protein 100 H, Urine Glucose (UA) 1000 H, Urine Ketones Negative, Urine Occult Blood 250 H, Urine Nitrite Negative, Urine Bilirubin Negative, Urine Urobilinogen Normal, Ur Leukocyte Esterase Negative Assessment & Plan Assessment/Plan (1) Acute respiratory failure: QUALIFIERS: Respiratory failure complication: hypoxia Qualified Code(s): J96.01 - Acute respiratory failure with hypoxia (2) Congestive heart failure: QUALIFIERS: Heart failure type: systolic Heart failure chronicity: acute Qualified Code(s): I50.21 - Acute systolic (congestive) heart failure PLAN: The patient is a 50 y/o F w/ PMHx: CKD stage III unclear subtype, COVID-19 07/2021, CAD s/p PCI BEATRICE LAD s/p AICD, Former tobacco use, Systolic CHF/Ischemic cardiomyopathy, HTN, HLD, Diabetes mellitus type II, Chronic pain syndrome s/p spinal nerve stimulatory placement, GERD, KANIKA who presents to the [facility] ED on 09/08/21 with history of severe onset of shortness of breath following awakening from a nap noted to be mottled with decreased level of consciousness noted to be in extremitas per EMS upon their arrival screaming for help with immediate emergent intubation secondary to respiratory distress evident. #1. Acute Hypoxic Respiratory Failure secondary to Acute Decompensated Systolic CHF Exacerbation/Ischemic Cardiomyopathy w/ suspected Flash Pulmonary Edema: Patient administered IV lasix in the ED. Will admit to the ICU, will consult sound art instructor, will consult Cardiology, will maintian intubated status, s/p AICD placement with interrogation requested, maintain on cardiac telemetry, obtain cardiac enzyme series, obtain serial EKGs, continue IV lasix diuresis, monitor I/Os, maintain on intake restriction, continue medical therapy, obtain TSH and magnesium level. Most recent 05/22/2021 echocardiogram with EF of 30%, septal motion consistent with IVCD, mildly enlarged LA, moderate MVI, trivial TVI, trivial PVI, transmitral Doppler flow suggestive of impaired relaxation of LV thus will defer repeat given recently performed, place dony wraps, elevation BL LE. #2. Questionable PAF with RVR: EKG upon presentation read as atrial fibrillation with RVR however rate significantly too fast to determine specific rhythm, will maintain on telemetry monitoring, repeat EKG as needed, as noted pending TSH and magnesium, if determined consistent with atrial fibrillation will initiate anticoagulation. Dosing w/ patient home coreg now and PRN BB therapy. If necessary may initiate drip pending response; however, rate seems to already be slowing following intubation. #3. Diabetes mellitus type II: NPO status, given intubated and sedated status will maintain on q 6 hour accu checks w/ ISS. #4. CAD: Status post PCI BEATRICE LAD, will continue aspirin, Plavix, statin, Coreg, lisinopril regimen. 05/25/21 cardiac catheterization with coronary disease with patent stent in the LAD, LV systolic dysfunction with 2+ MR with decision for ongoing medical therapy at that time. #5. Chronic pain syndrome: Patient with chronic back pain, given intubated status will hold tizanidine, QT positional changes, status post simulator p lacement per records. #6. Hypertension: Continue home regimen including IV lasix, Coreg, lisinopril, isosorbide, PRN hydralazine. #7. Hyperlipidemia: Continue home statin regimen. AM FLP. #8. Obesity: Weight loss and lifestyle changes encouraged. #9. GERD: We will continue patient home sucralfate and PPI. #10. Former tobacco use: Encourage continued tobacco cessation. #11. KANIKA: Intubated as noted above #1. #12. Chronic Kidney Disease Stage III, unclear subtype: Admission BUN/Cr 25/ 1.46, baseline renal function appears more recently 1-1.3 however baseline prior has been 0.8-0.9, repeat BMP in AM. #13. DVT prophylaxis: SCDs, therapeutic Lovenox pending enzyme trending and rhythm re-assessment. Charges/Coding Visit Charges Inpatient E&M: 94264 Init Hosp L3
[2021-09-08 20:48] LABS: Transitional Epithelial - Ur 0-5 SEEN /hpf (0-5)
[2021-09-08 20:49] LABS: Bacteria 1+ /hpf (None Seen)
[2021-09-08 20:50] LABS: International Normalized Ratio 1.1; Prothrombin Time (Protime)PT. 13.6 SECONDS (11.7-14.9)
--- NOTE | 2021-09-08 20:50 | RAD_ITS ---
STUDY: X-RAY CHEST REASON FOR EXAM: Female, 50 years old. Chest pain TECHNIQUE: Single frontal view of the chest. COMPARISON: 07/17/2021 FINDINGS: Endotracheal tube tip is in the midthoracic trachea. Enteric tube enters the stomach with the tip not visualized. Diffuse pulmonary opacities. Question of a left hilar mass versus artifact. There is moderate cardiac enlargement. Normal mediastinum and tony. Normal visualized pulmonary arteries. Normal visualized aortic arch and descending thoracic aorta. Normal visualized thoracic spine. Normal visualized ribs, clavicles, and shoulders. There is no demonstrated abnormality of the visualized soft tissue structures of the upper abdomen. RAD/Chest 1 View (Portable) IMPRESSION: Findings most suggest CHF/pulmonary edema. Question of a left hilar mass versus artifact. Consider chest CT if clinically indicated. Support hardware as above. Electronically Signed: Sterling Guardado MD at 21:37 EDT ,
[2021-09-08 20:51] LABS: Partial Thromboplast Time 31.1 Seconds (24.1-36.2)
[2021-09-08 20:55] LABS: Differential Indicated SCAN CRITERIA MET
--- NOTE | 2021-09-08 20:58 | RAD_ITS ---
STUDY: X-RAY - ABDOMEN/PELVIS REASON FOR EXAM: Female, 50 years old. NG PLACEMENT TECHNIQUE: Single AP view of the abdomen / pelvis. COMPARISON: None. FINDINGS: Enteric tube tip is within the stomach which appears distended and gas-filled. Spinal stimulator hardware is noted. There is an unremarkable bowel gas pattern. There is no demonstrated free abdominal air. No evidence for free air. Normal soft tissue structures. Normal visualized osseous structures. RAD/Abdomen Single View (Portable) IMPRESSION: Enteric tube tip is within the stomach which appears distended and gas-filled. Electronically Signed: Sterling Guardado MD at 21:42 EDT ,
[2021-09-08 21:02] LABS: Anion Gap 13 (5-15); BUN 25 mg/dL (7-18); BUN/Creat Ratio 17.1 RATIO (10-20); Calcium,Total 9.2 mg/dL (8.5-10.1); Chloride 105 mmol/L (98-107); Creatinine, Serum 1.46 mg/dL (0.55-1.02); EST Glomerular Filtration Rate 40 mL/min (>60); Est Glom Filt Rate - Afr Amer 48 mL/min (>60); Estimated Creatinine Clearance 39.37 ml/min; Glucose 468 mg/dL (74-106); Sodium Level 137 mmol/L (136-145); Troponin-I HS (w/2H Reflex) 13 pg/mL (3.0-54.0)
[2021-09-08] MEDS: Furosemide 40 MG/4 ML Vial IV (21:07)
[2021-09-08 21:11] LABS: Platelet Estimate ADEQUATE (ADEQ); Red Cell Morphology NORM C+C NORMAL (NORM C&C)
[2021-09-08 21:14] LABS: BNP,B-Type NATRIURETIC PEPTIDE 618.5 pg/mL (0-100)
[2021-09-08 21:19] LABS: Magnesium 2.3 mg/dL (1.6-2.6)
[2021-09-08 21:20] LABS: Base Excess -10 mmol/L (-2 to +2); Bicarbonate 17.7 mmol/L (22-26); Blood Gas Specimen Type ART; FI02 100; Mode AC; O2 Delivery Device Adult Vent; PEEP 5; PO2 101 mmHG (75-100); RR 14; SITE L Radial; SO2 96 % (95-99); Total Carbon Dioxide 19 mmol/L; Vt 450; pCO2 43.9 mmHg (35-45); pH 7.22 (7.35-7.45)
[2021-09-08 21:26] LABS: Lactic Acid 7.6 mmol/L (0.4-1.9)
[2021-09-08 22:36] LABS: Reflex Troponin-HS? (from REC) Y
[2021-09-08 23:04] LABS: Troponin-I HS 226 pg/mL (3.0-54.0)
[2021-09-09] VITALS (41 sets, daily range): BP systolic 78–163; BP diastolic 46–103; PULSE 80–104; RESP 13–25; TEMP 36.3–37.2; O2SAT 93–99
[2021-09-09 00:26] LABS: Base Excess -3 mmol/L (-2 to +2); Bicarbonate 22.1 mmol/L (22-26); Blood Gas Specimen Type ART; FI02 70; Mode AC; O2 Delivery Device Adult Vent; PEEP 5; PO2 125 mmHG (75-100); RR 14; SITE L Radial; SO2 99 % (95-99); Total Carbon Dioxide 23 mmol/L; Vt 450; pCO2 39.1 mmHg (35-45); pH 7.36 (7.35-7.45)
[2021-09-09 00:36] LABS: Reflex Lactate? Y
[2021-09-09] MEDS: Insulin Lispro 100 UNIT/ML INSULN.PEN 20 UNIT SC (00:53)
[2021-09-09] MEDS: Enoxaparin 100 MG/ML Syringe 95 MG SC ×3 (01:02→21:17)
[2021-09-09 01:06] LABS: Bedside Glucose 402 mg/dL (74-106)
[2021-09-09] MEDS: Chlorhexidine 15 ML PO ×3 (01:06→21:17)
[2021-09-09] MEDS: Propofol 10MG/Ml 1,000 MG/100 ML Bottle 11.5 MG CONT INF ×2 (01:06→17:30)
[2021-09-09] MEDS: Atorvastatin Calcium 80 MG Tablet PO (01:10)
[2021-09-09 02:01] LABS: Absolute Lymphocyte Count 0.77 X10^3/uL (0.83-4.51); Absolute Neutrophil Count 9.8 X10^3/uL (2.0-7.7); Basophil# 0.01 X10^3/uL; Basophil% 0.1 % (0-1); Hematocrit 42.6 % (37-47); Hemoglobin 14.5 g/dL (12.0-15.0); Lymphocyte # 0.77 X10^3/ul (0.83-4.51); Lymphocyte % 7.1 % (19-41); Mean Corpuscular Hgb 31.1 pg (27.0-32.0); Mean Corpuscular Volume 91.4 fL (81-99); Mean Platelet Vol. 10.2 fl (6.2-12.0); Monocyte% 2.7 % (0-10); NRBC Flagged by Analyzer 0 % (0-5); Neutrophil # 9.79 X10^3/uL (2.7-7.7); Neutrophil % 89.6 % (47-70); Platelet Count 228 K/mm3 (150-450); RBC Distribution Width CV 13.2 % (11.6-14.6); RBC Distribution Width SD 44.5 fl (35.1-43.9); Red Blood Count 4.66 M/mm3 (4.2-5.4); White Blood Count 10.9 K/mm3 (4.4-11.0)
[2021-09-09 02:24] LABS: ALB/GLOB Ratio 0.9 RATIO (0.9-2.4); AST(SGOT) 51 U/L (15-37); Alanine Aminotransfer ALT/SGPT 41 U/L (13-56); Albumin, Serum 3.7 g/dL (3.2-5.0); Alkaline Phosphatase 94 U/L (45-117); Anion Gap 6 (5-15); BUN 27 mg/dL (7-18); Calcium,Total 9.1 mg/dL (8.5-10.1); Chloride 109 mmol/L (98-107); Cholesterol 134 mg/dL (200); Creatinine, Serum 1.23 mg/dL (0.55-1.02); EST Glomerular Filtration Rate 49 mL/min (>60); Est Glom Filt Rate - Afr Amer 59 mL/min (>60); Estimated Creatinine Clearance 46.73 ml/min; Globulin 4.2 g/dL (2.2-4.2); Glucose 348 mg/dL (74-106); High Density Lipoprotein 65 mg/dL; Potassium 4.1 mmol/L (3.5-5.1); Protein, Total 7.9 g/dL (6.4-8.2); Sodium Level 138 mmol/L (136-145); Triglycerides 69 mg/dL; Very Low Density Lipoprotein 14 mg/dL (5-40)
[2021-09-09 02:34] LABS: Troponin-I HS 1525 pg/mL (3.0-54.0)
--- NOTE | 2021-09-09 02:42 | ECHOD_ITS ---
Reason For Study: NSTEMI Procedure This was a 2D Doppler, Color Flow transthoracic echocardiogram. The study was technically difficult. PT ON VENT. Exam performed portable in ICU/CCU. Left Ventricle Normal LV size. Moderately severe segmental systolic dysfunction (see wall motion). The estimated ejection fraction is 30 %. Unable to assess diastolic dysfunction. Septal motion consistent with IVCD. Anterio-Basal: Hypokinetic. Infero-Basal: Akinetic. Basal inferoseptal: Hypokinetic. Basal anteroseptal: Hypokinetic. Mid-Anterior : Hypokinetic. Mid-Posterior: Hypokinetic. Mid-Inferior: Akinetic. Mid-inferoseptal : Akinetic. Mid-anteroseptal : Akinetic. Anterior [place] : Hypokinetic. Inferior [place] : Hypokinetic. Lateral [place] : Akinetic. Septal [place] : Akinetic. Right Ventricle Normal RV size. Normal systolic function. Atria Normal left atrium. Normal right atrium. No doppler evidence for ASD. Mitral Valve There is mild mitral annular calcification. Extension of the mitral annular calcification onto the base of the posterior mitral valve leaflet. Trivial mitral valve insufficiency. Tricuspid Valve Normal tricuspid valve. Mild to moderate (1-2+) eccentric tricuspid valve insufficiency. Right ventricular systolic pressure estimated to be 31 mmHg. Aortic Valve Trisinus/trileaflet aortic valve. Normal aortic valve. Pulmonic Valve The pulmonic valve is not well visualized. Trivial pulmonic valve insufficiency. Great Vessels Normal sized aortic root. Calcified aortic root. Pericardium/Pleural No pericardial effusion. MMode/2D Measurements & Calculations LVIDd: 5.4 cm IVSd: 1.2 cm Ao root diam: 3.0 cm LVIDs: 4.0 cm LVPWd: 1.3 cm RVDd: 2.7 cm FS: 26.3 % LAV(MOD-bp): 27.6 ml LVAd ap4: 31.0 cm2 LVAd ap2: 30.4 cm2 LAV(MOD-bp) Indexed: 13.9 ml/m2 LVLd ap4: 7.3 cm LVLd ap2: 7.1 cm LAV(MOD-sp2): 32.3 ml EDV(MOD-sp4): 107.6 ml EDV(MOD-sp2): 112.0 ml LAV(MOD-sp4): 23.8 ml EDV(sp4-el): 112.8 ml EDV(sp2-el): 110.3 ml LVAs ap4: 26.3 cm2 LVAs ap2: 25.6 cm2 LVLs ap4: 7.2 cm LVLs ap2: 7.0 cm ESV(MOD-sp4): 80.1 ml ESV(MOD-sp2): 79.7 ml ESV(sp4-el): 81.7 ml ESV(sp2-el): 79.2 ml EF(MOD-sp4): 25.6 % EF(MOD-sp2): 28.8 % EF(sp4-el): 27.5 % SV(MOD-sp4): 27.5 ml SV(MOD-sp2): 32.2 ml SV(sp4-el): 31.0 ml LA dimension(2D): 3.1 cm LA A4 area: 11.8 cm2 RA A4 area: 12.5 cm2 Doppler Measurements & Calculations MV E max keven: 102.0 cm/sec Ao V2 max: 129.2 cm/sec LV V1 max: 108.7 cm/sec Ao max P.0 mmHg LV V1 max P.7 mmHg PA V2 max: 118.5 cm/sec TR max keven: 238.7 cm/sec TR max P.8 mmHg ECHO/Echo Complete Interpretation Summary The study was technically difficult. Moderately severe segmental systolic dysfunction (see wall motion). The estimated ejection fraction is 30 %. Septal motion consistent with IVCD. There is mild mitral annular calcification. Extension of the mitral annular calcification onto the base of the posterior mi tral valve leaflet. Trivial mitral valve insufficiency. Mild to moderate (1-2+) eccentric tricuspid valve insufficiency. Trivial pulmonic valve insufficiency. Calcified aortic root. Right ventricular systolic pressure estimated to be 31 mmHg. Unable to assess diastolic dysfunction. Ordering Physician: Perlita Gómez Referring Physician: Margo Tatum Performed By: Lisha Ruvalcaba RCS
[2021-09-09] MEDS: Insulin Lispro 100 UNIT/ML INSULN.PEN SC ×4 (05:38→23:23)
[2021-09-09 05:46] LABS: Bedside Glucose 251 mg/dL (74-106)
--- NOTE | 2021-09-09 05:55 | EKG12_ITS ---
Test Reason : AM EKG Blood Pressure : / mmHG Vent. Rate : 096 BPM Atrial Rate : 096 BPM P-R Int : 178 ms QRS Dur : 156 ms QT Int : 410 ms P-R-T Axes : 053 005 078 degrees QTc Int : 517 ms Sinus rhythm with Premature supraventricular complexes Left bundle branch block Abnormal ECG Confirmed by GUCCI GEE, PAT ([id number]), editor continuity and script JAYLIN FRANK ([id number]) on 09/17/2021 1:28:30 PM Referred By: FLAVIA Confirmed By:PAT DUCKWORTH MD
--- NOTE | 2021-09-09 07:11 | EX.PCM.CONCC ---
Assessment & Plan Assessment/Plan (1) Acute respiratory failure: QUALIFIERS: Respiratory failure complication: hypoxia Qualified Code(s): J96.01 - Acute respiratory failure with hypoxia PLAN: RECOMMENDATIONS: 1. Continue assist control mode of mechanical ventilation. Wean FiO2 and PEEP to maintain saturations at or above 90%. 2. Continue propofol and fentanyl for sedation. 3. Okay to initiate tube feeds. 4. Await results of echocardiogram. 5. Continue diuretics as tolerated by hemodynamics and renal function. 6. Continue appropriate GI prophylaxis. IMPRESSIONS: 1. Acute hypoxemic respiratory failure Most likely secondary to acute decompensated heart failure. In light of the patient's acute presentation, a CTA chest was obtained, which was negative for pulmonary embolism. Therefore, it is reasonable to continue current cardiac medical management with IV diuretic therapy as tolerated by hemodynamics and renal function. Cardiology is currently following with repeat echocardiogram planned. Continue to wean FiO2 and PEEP to maintain oxygen saturations at or above 90%. Plan for daily paired spontaneous awakening and breathing trials beginning tomorrow. 2. Non-ST segment elevation CO Continue medical management as noted above. Await results of echocardiogram and additional recommendations of server systems administrator. 3. Hypertension/hyperlipidemia/GERD/sleep apnea/obesity Complicates care, management, recovery and prognosis. Continue home medications as indicated. TIME: 33 minutes of critical care time, independent of procedures, was spent addressing the patient's acute hypoxemic respiratory failure, NSTEMI, review of all data and collaboration with the care team. HPI Consult Data Date of Consult: 09/09/21 HPI Narrative Reason for Consultation: Respiratory failure HPI Narrative: The patient is a 50-year-old female, with a history as outlined below, who presented to the emergency department via EMS on September 08 with rather acute onset shortness of breath. The patient has known history of coronary artery disease with an ejection fraction of 30%, chronic kidney disease, chronic pain syndrome and obstructive sleep apnea. She is currently followed in the cardiology clinic. History pertinent to her hospitalization was obtained primarily via chart review, as the patient is currently intubated and there is no family available at the bedside. On presentation to the emergency department, the patient was noted to be profoundly tachycardic and tachypneic. Laboratory evaluation revealed an elevated white blood cell count of 15,000. Coagulation profile was within normal limits. Chemistry profile was notable for a bicarbonate of 19 and a creatinine of 1.46. Glucose was elevated at 468 with a lactate of 7.6. BNP was elevated at 618. Urine analysis was largely unremarkable. Chest x-ray revealed stigmata of CHF. On arrival to the emergency department, there is documentation that the patient was in respiratory distress and mottled. She was emergently intubated and placed on the ventilator. The patient was started on therapeutic Lovenox and IV diuretic therapy. She was admitted to the medical intensive care unit for further management. COUNTS INCLUDE 234 BEDS AT THE [facility] Medical History (Updated 09/09/21 @ 08:[address] Gustavo Leslie MD) Atherosclerotic heart disease of [place] coronary artery without angina pectoris Benign hypertension Bilateral interstitial pneumonia Cardiomyopathy, ischemic Chronic low back pain Chronic pain Congestive heart failure (CHF) COPD (chronic obstructive pulmonary disease) COVID-19 virus infection Diabetes Former smoker HFrEF (heart failure with reduced ejection fraction) High cholesterol History of non-ST elevation myocardial infarction (NSTEMI) (06/12/20) Hyperglycemia due to type 2 diabetes mellitus Hyperlipidemia Hypertension Irregular heart beat Kidney stones Left bundle branch block (LBBB) Myocardial infarct Non-ischemic cardiomyopathy Non-ST elevation (NSTEMI) myocardial infarction Nonobstructive atherosclerosis of coronary artery Obesity Seizures Status post insertion of nerve stimulator Syncope Thyroid nodule Type 2 diabetes mellitus Home Medications omeprazole 20 mg PO DAILY #30 cap 12/01/18 [Rx Last Taken 07/16/21] tizanidine 4 mg PO QHS 06/12/20 [History Last Taken 07/16/21] glipizide 10 mg tablet, extended release 24 hr 10 mg PO BID tab 07/11/20 [History Last Taken 07/16/21] sucralfate 1 gram tablet 1 g PO 4X/DAY PRN tab 07/11/20 [History Last Taken 07/16/21] tramadol 50 mg tablet 50 mg PO TID PRN tab 07/11/20 [History Last Taken 07/16/21] aspirin 81 mg PO DAILY #60 cap 05/20/21 [Rx Last Taken 07/16/21] hydroxyzine HCl 25 mg PO TID PRN #20 tab 06/07/21 [Rx Last Taken 07/13/21] clopidogrel 75 mg tablet 75 mg PO DAILY #90 tab 06/08/21 [Rx Last Taken 07/16/21] isosorbide mononitrate 30 mg tablet,extended release 24 hr 30 mg PO DAILY #90 tab 06/29/21 [Rx Last Taken 07/16/21] atorvastatin 80 mg tablet 80 mg PO QHS #90 tab 07/06/21 [Rx Last Taken 07/16/21] carvedilol 6.25 mg tablet 6.25 mg PO BID #180 tab 07/06/21 [Rx Last Taken 07/16/21] furosemide 40 mg tablet 40 mg PO DAILY #90 tab 07/06/21 [Rx Last Taken 07/16/21] lisinopril 20 mg tablet 20 mg PO DAILY #90 tab 07/06/21 [Rx Last Taken 07/16/21] potassium chloride 20 mEq tablet,extended release(part/cryst) 20 meq PO DAILY #90 tab 07/07/21 [Rx Last Taken 07/16/21] promethazine 25 mg PO TID PRN #21 tab 07/19/21 [Rx Last Taken Unknown] Allergy/AdvReac Type Severity Reaction Status Date / Time amoxicillin trihydrate AdvReac Vomiting Verified 07/17/21 11:51 [From Augmentin] potassium clavulanate AdvReac Vomiting Verified 07/17/21 11:51 [From Augmentin] Family History Father Myocardial infarction Cancer prostate, leukemia Agent orange exposure Diabetes Sister Diabetes COPD (chronic obstructive pulmonary disease) Surgical History History of appendectomy History of back surgery History of cholecystectomy (1991) History of cholecystectomy History of coronary artery stent placement History of hysterectomy History of laparoscopy History of left heart catheterization (05/25/21) History of tonsillectomy Presence of coronary angioplasty implant and graft (~05/19/21) Social History (Updated 09/08/21 @ 21:[address] Perlita Gómez MD) household members: significant other Smoking Status: Former smoker how long ago did patient quit smokin alcohol intake: current alcohol intake frequency: holidays/special occasions only substance use type: does not use caffeine: Yes ROS Review of Systems ROS Unobtainable: due to endotracheal tube Physical Exam Const no apparent distress General Appearance: intubated and patient mechanically ventilated Nutritional Appearance: obese HEENT normocephalic and head/scalp atraumatic Mouth: endotracheal tube in place and OG tube in place Eyes PERRL and EOMs intact bilaterally Neck supple General: trachea midline Chest inspection of chest normal Resp Resp Narrative: Coarse mechanical breath sounds. Cardio regular rate and regular rhythm GI normal to inspection, nondistended, normoactive bowel sounds Extremity Extremity Narrative: Wrapped lower extremities General Extremity: Negative for clubbing Skin no rashes or lesions noted Neuro Sensorium / Orientation: sedated on vent Lab / Micro Data Result Diagrams: 09/09/21 01:51 09/09/21 01:51 Labs: Laboratory Results - last 24 hr 09/08/21 20:20: Urine Color Yellow, Urine Clarity Sl. Cloudy, Urine pH 5.0, Ur Specific Riley 1.015, Urine Protein 100 H, Urine Glucose (UA) 1000 H, Urine Ketones Negative, Urine Occult Blood 250 H, Urine Nitrite Negative, Urine Bilirubin Negative, Urine Urobilinogen Normal, Ur Leukocyte Esterase Negative, Urine RBC 10-25 SEEN, Urine WBC 0-5 SEEN, Ur Squamous Epith Cells 0 SEEN, Ur Transition Epith Cell 0-5 SEEN, Urine Bacteria 1+, Urine Mucus 0 SEEN 09/08/21 20:26: WBC 14.7 H, RBC 4.74, Hgb 14.6, Hct 46.8, MCV 98.7, MCH 30.8, MCHC 31.2 L, RDW Std Deviation 48.1 H, RDW Coeff of Tomi 13.1, Plt Count 280, MPV 10.9, Immature Gran % (Auto) 0.400, Neut % (Auto) 54.0, Lymph % (Auto) 42.3 H, Coke % (Auto) 2.6, Eos % (Auto) 0.3, Baso % (Auto) 0.4, Absolute Neuts (auto) 7.9 H, Absolute Lymphs (auto) 6.24 H, Nucleated RBC % 0, Differential Comment , Platelet Estimate ADEQUATE, RBC Morphology NORM C+C 09/08/21 20:26: PT 13.6, INR 1.1, APTT 31.1 09/08/21 20:26: Sodium 137, Potassium 4.0, Chloride 105, Carbon Dioxide 19.0 L, Anion Gap 13, BUN 25 H, Creatinine 1.46 H, Estim Creat Clear Calc 39.37, Est GFR (MDRD) Af Amer 48 L, Est GFR (MDRD) Non-Af 40 L, BUN/Creatinine Ratio 17.1, Glucose 468 H*, Calcium 9.2, Troponin I High Sens 13 09/08/21 20:26: Lactic Acid 7.6 H* 09/08/21 20:26: B-Natriuretic Peptide 618.5 H 09/08/21 20:26: Magnesium 2.3 09/08/21 22:40: Troponin I High Sens 226 H* 09/09/21 00:50: POC Glucose 402 H 09/09/21 01:51: WBC 10.9, RBC 4.66, Hgb 14.5, Hct 42.6, MCV 91.4 D, MCH 31.1, MCHC 34.0 D, RDW Std Deviation 44.5 H, RDW Coeff of Tomi 13.2, Plt Count 228, MPV 10.2, Immature Gran % (Auto) 0.500, Neut % (Auto) 89.6 H, Lymph % (Auto) 7.1 L, Coke % (Auto) 2.7, Eos % (Auto) 0.0, Baso % (Auto) 0.1, Absolute Neuts (auto) 9.8 H, Absolute Lymphs (auto) 0.77 L, Nucleated RBC % 0 09/09/21 01:51: Sodium 138, Potassium 4.1, Chloride 109 H, Carbon Dioxide 23.0, Anion Gap 6, BUN 27 H, Creatinine 1.23 H, Estim Creat Clear Calc 46.73, Est GFR (MDRD) Af Amer 59 L, Est GFR (MDRD) Non-Af 49 L, BUN/Creatinine Ratio 22.0 H, Glucose 348 H, Calcium 9.1, Total Bilirubin 0.80, AST 51 H, ALT 41, Alkaline Phosphatase 94, Total Protein 7.9, Albumin 3.7, Globulin 4.2, Albumin/Globulin Ratio 0.9, Triglycerides 69, Cholesterol 134, LDL Cholesterol 55, VLDL Cholesterol 14, HDL Cholesterol 65 09/09/21 01:51: Troponin I High Sens 1525 H* 09/09/21 01:51: Lactic Acid 2.0 09/09/21 05:36: POC Glucose 251 H ABG Data ABG results: ABG 09/08/21 09/09/21 21:14 00:19 Specimen Type ART ART Sample Site L Radial L Radial pH 7.22 L 7.36 Bicarbonate Actual 17.7 L 22.1 Total CO2 19 23 Base Excess -10 L -3 L O2 Saturation 96 99 O2 % 100 70 ABG pCO2 43.9 39.1 ABG pO2 101 H 125 H Darron Test N/A N/A Respiration Rate 14 14 O2 Delivery Device Adult Vent Adult Vent Vent Mode AC AC Tidal Volume 450 450 POC PEEP 5 5 Rhythm Strip Rhythm Strip: Tachycardia Rate: 140 Radiology Impression Chest X-Ray 09/08/21 20:50 IMPRESSION: Findings most suggest CHF/pulmonary edema. Question of a left hilar mass versus artifact. Consider chest CT if clinically indicated. Support hardware as above. Electronically Signed: Sterling Guardado MD at 21:37 EDT , KUB X-Ray 09/08/21 20:58 IMPRESSION: Enteric tube tip is within the stomach which appears distended and gas-filled. Electronically Signed: Sterling Guardado MD at 21:42 EDT , Charges/Coding Procedures Hospitalists Procedures: 75097 Critial Care 1st Hr
[2021-09-09] MEDS: Propofol 10MG/Ml 1,000 MG/100 ML Bottle 14.4 MG CONT INF (07:14)
--- NOTE | 2021-09-09 08:00 | PCM.CONS.C ---
Assessment & Plan Assessment/Plan (1) Non-ST elevation (NSTEMI) myocardial infarction: PLAN: The patient presents with abnormal cardiac enzymes compatible with an acute non-ST segment elevation SC. It is unclear at this time whether this is related to a primary CAD event versus secondary to her acute CHF/pulmonary edema and acute respiratory failure and a type II event. At the present time she will continue to be monitored. Her cardiac enzymes and ECG can be followed. She will continue medical therapy as tolerated. She may eventually need reevaluation in the cardiac catheterization laboratory. (2) Atherosclerotic heart disease of [place] coronary artery without angina pectoris: PLAN: The patient has a history of underlying CAD. She has undergone LAD PCI in the past as noted above. Again at the present time it is unclear as to whether or not she has had progression of her CAD or concerns of in-stent restenosis leading to her acute cardiovascular/pulmonary event versus being a type II event. At the present time she will continue medical management/support. She may eventually require further evaluation in the cardiac catheterization laboratory. (3) History of coronary artery stent placement: PLAN: She has undergone previous PCI as noted. Again there may be concerns as to whether or not she has had progression of her CAD or in-stent restenosis. She will continue medical management and support. She may require further evaluation with diagnostic cardiac catheterization. (4) Congestive heart failure: QUALIFIERS: Heart failure type: systolic Heart failure chronicity: acute Qualified Code(s): I50.21 - Acute systolic (congestive) heart failure PLAN: She presents with findings of an acute on chronic systolic mediated CHF. It is unclear whether this is related to progression of her CAD or possible LAD in-stent restenosis versus a non-CAD process. At the moment she has required ICU care with mechanical intubation/ventilation. She will continue medical management including diuretics. (5) Non-ischemic cardiomyopathy: PLAN: She has a history of a non-CAD cardiomyopathy and subsequently has been diagnosed with CAD requiring LAD PCI. Her left ventricular wall motion and systolic function will be reassessed with a transthoracic echocardiogram. (6) Hyperlipidemia: PLAN: She should continue risk factor evaluation care/medical therapy. (7) Benign hypertension: PLAN: Her blood pressure will need to be monitored with her medicines adjusted to assist with her blood pressure control taking into consideration her multiple medical diagnoses and comorbidities. (8) Acute respiratory failure: QUALIFIERS: Respiratory failure complication: hypoxia Qualified Code(s): J96.01 - Acute respiratory failure with hypoxia PLAN: She was found by EMS to be in acute respiratory distress. She required mechanical intubation/ventilation at the scene. She is currently in the ICU and remains mechanically intubated and ventilated. She will continue medical therapy. This will include diuretic therapy. Hopefully as her cardiopulmonary process improves she will be able to be weaned from the ventilator. Then consideration will be given as to how to proceed with further cardiovascular evaluation and care. Addt'l Comments The patient's case has been discussed and reviewed with Dr. Staples and the patient's primary mitten stitcher Dr. Ho. This note was generated using a voice recognition system and there may be incorrect words, spelling or punctuation that were not noted when reviewing the office note prior to saving. HPI Consult Data Date of Consult: 09/09/21 HPI Narrative HPI Narrative: PITO CLARK, is a 50 year old white female who presents for cardiovascular consultation based upon concerns of recurrent acute CHF/pulmonary edema requiring subsequent mechanical intubation/ventilation with findings of abnormal high-sensitivity troponin I levels superimposed upon a diagnosis of CAD, LAD PCI, hyperlipidemia, hypertension, and diabetes mellitus. As you recall, the patient underwent evaluation on 05-19-2021 for concerns of acute non-ST segment elevation SC. She subsequently underwent diagnostic cardiac catheterization which demonstrated an LAD mid 95% stenosis which led to an LAD PCI/BEATRICE. Her overall LV systolic function was diminished with an LVEF recorded at 35 to 40%. She subsequently had a repeat hospitalization in cardiovascular consultation on 05-23-2021 based upon concerns of recurrent symptoms and abnormal troponin I levels. Her ECG at the time demonstrated sinus rhythm with first-degree AV block with a left bundle branch block pattern (she is noted to have a history of a left bundle branch block). She underwent evaluation at that time with chest CTA which was negative for thromboembolic disease or great vessel disease. She underwent reevaluation on 05-25-2021 with diagnostic cardiac catheterization. At that time her LVEF was thought to be 35%, her left main coronary artery was normal, her LAD mid stent was patent, her LCx had mild luminal irregularities, and RCA had no significant disease. She presented back to [facility] on 09-08-2021 with concerns of severe shortness of breath/dyspnea, and altered level of consciousness, and appearing mottled in her extremities. The EMS was summoned. Upon evaluation there was concern that the patient was reported extremis . The patient underwent mechanical intubation/ventilation. She was subsequently brought to the [facility] emergency department for further evaluation and care. There she was found to have elevated troponin I levels, and ECG demonstrated the appearance of sinus tachycardia with a left bundle branch block pattern, and a chest x-ray suggesting findings compatible with CHF/pulmonary edema with a question of a left hilar mass versus artifact. She was subsequently transferred to the ICU for further inpatient evaluation and care. In the ICU she remains mechanically intubated and ventilated. [facility] Medical History (Updated 09/09/21 @ 08:[address] Gustavo Leslie MD) Atherosclerotic heart disease of [place] coronary artery without angina pectoris Benign hypertension Bilateral interstitial pneumonia Cardiomyopathy, ischemic Chronic low back pain Chronic pain Congestive heart failure (CHF) COPD (chronic obstructive pulmonary disease) COVID-19 virus infection Diabetes Former smoker HFrEF (heart failure with reduced ejection fraction) High cholesterol History of non-ST elevation myocardial infarction (NSTEMI) (06/12/20) Hyperglycemia due to type 2 diabetes mellitus Hyperlipidemia Hypertension Irregular heart beat Kidney stones Left bundle branch block (LBBB) Myocardial infarct Non-ischemic cardiomyopathy Non-ST elevation (NSTEMI) myocardial infarction Nonobstructive atherosclerosis of coronary artery Obesity Seizures Status post insertion of nerve stimulator Syncope Thyroid nodule Type 2 diabetes mellitus Home Medications omeprazole 20 mg PO DAILY #30 cap 12/01/18 [Rx Last Taken 07/16/21] tizanidine 4 mg PO QHS 06/12/20 [History Last Taken 07/16/21] glipizide 10 mg tablet, extended release 24 hr 10 mg PO BID tab 07/11/20 [History Last Taken 07/16/21] sucralfate 1 gram tablet 1 g PO 4X/DAY PRN tab 07/11/20 [History Last Taken 07/16/21] tramadol 50 mg tablet 50 mg PO TID PRN tab 07/11/20 [History Last Taken 07/16/21] aspirin 81 mg PO DAILY #60 cap 05/20/21 [Rx Last Taken 07/16/21] hydroxyzine HCl 25 mg PO TID PRN #20 tab 06/07/21 [Rx Last Taken 07/13/21] clopidogrel 75 mg tablet 75 mg PO DAILY #90 tab 06/08/21 [Rx Last Taken 07/16/21] isosorbide mononitrate 30 mg tablet,extended release 24 hr 30 mg PO DAILY #90 tab 06/29/21 [Rx Last Taken 07/16/21] atorvastatin 80 mg tablet 80 mg PO QHS #90 tab 07/06/21 [Rx Last Taken 07/16/21] carvedilol 6.25 mg tablet 6.25 mg PO BID #180 tab 07/06/21 [Rx Last Taken 07/16/21] furosemide 40 mg tablet 40 mg PO DAILY #90 tab 07/06/21 [Rx Last Taken 07/16/21] lisinopril 20 mg tablet 20 mg PO DAILY #90 tab 07/06/21 [Rx Last Taken 07/16/21] potassium chloride 20 mEq tablet,extended release(part/cryst) 20 meq PO DAILY #90 tab 07/07/21 [Rx Last Taken 07/16/21] promethazine 25 mg PO TID PRN #21 tab 07/19/21 [Rx Last Taken Unknown] Allergy/AdvReac Type Severity Reaction Status Date / Time amoxicillin trihydrate AdvReac Vomiting Verified 07/17/21 11:51 [From Augmentin] potassium clavulanate AdvReac Vomiting Verified 07/17/21 11:51 [From Augmentin] Family History Father Myocardial infarction Cancer prostate, leukemia Agent orange exposure Diabetes Sister Diabetes COPD (chronic obstructive pulmonary disease) Surgical History History of appendectomy History of back surgery History of cholecystectomy (1991) History of cholecystectomy History of coronary artery stent placement History of hysterectomy History of laparoscopy History of left heart catheterization (05/25/21) History of tonsillectomy Presence of coronary angioplasty implant and graft (~05/19/21) Social History (Updated 09/08/21 @ 21:[address] Perlita Gómez MD) household members: significant other Smoking Status: Former smoker how long ago did patient quit smokin alcohol intake: current alcohol intake frequency: holidays/special occasions only substance use type: does not use caffeine: Yes ROS Review of Systems ROS Unobtainable: due to endotracheal tube Physical Exam Resp Auscultation: rhonchi throughout Cardio regular rate, regular rhythm, S1 normal heart sound and S2 normal heart sound GI normal to inspection, nondistended, normoactive bowel sounds Extremity Extremity Narrative: Bilateral Scott wraps Skin no rashes or lesions noted Risk Stratification Risk Stratification Applicable: Yes Age >/= 65: No >/= 3 CAD Risk Factors (HTN, HLD, DM, family hx of CAD, or current smoker): Yes Aspirin Use in the Past 7 Days: Yes Severe Angina (>/= episodes in 24 hours): No EKG ST Changes >/= 0.5mm: No Positive Cardiac Marker: Yes AMIE Risk Stratification Score: 3 AMIE % Risk: 13% Risk Objective Data Vital Signs: Vital Signs Temp Pulse Resp BP Pulse Ox 97.3 F L 96 16 140/88 H 95 09/09/21 04:00 09/09/21 07:00 09/09/21 07:00 09/09/21 07:00 09/09/21 07:00 Oxygen Delivery Method Mechanical Ventilator Weight: 205 lb Body Mass Index (BMI) 35.4 Intake & Output: Intake and Output for Last 24 Hours 09/07/21 09/08/21 09/09/21 23:59 23:59 23:59 Intake Total 14.89 / 14.89 144.81 / 144.81 Output Total 1200 / 1200 Balance 14.89 / 14.89 -1055.19 / -1055.19 Lab / Micro Data Result Diagrams: 09/09/21 01:51 09/09/21 01:51 Labs: Laboratory Results - last 24 hr 09/08/21 20:20: Urine Color Yellow, Urine Clarity Sl. Cloudy, Urine pH 5.0, Ur Specific [place] 1.015, Urine Protein 100 H, Urine Glucose (UA) 1000 H, Urine Ketones Negative, Urine Occult Blood 250 H, Urine Nitrite Negative, Urine Bilirubin Negative, Urine Urobilinogen Normal, Ur Leukocyte Esterase Negative, Urine RBC 10-25 SEEN, Urine WBC 0-5 SEEN, Ur Squamous Epith Cells 0 SEEN, Ur Transition Epith Cell 0-5 SEEN, Urine Bacteria 1+, Urine Mucus 0 SEEN 09/08/21 20:26: WBC 14.7 H, RBC 4.74, Hgb 14.6, Hct 46.8, MCV 98.7, MCH 30.8, MCHC 31.2 L, RDW Std Deviation 48.1 H, RDW Coeff of Tomi 13.1, Plt Count 280, MPV 10.9, Immature Gran % (Auto) 0.400, Neut % (Auto) 54.0, Lymph % (Auto) 42.3 H, [place] % (Auto) 2.6, Eos % (Auto) 0.3, Baso % (Auto) 0.4, Absolute Neuts (auto) 7.9 H, Absolute Lymphs (auto) 6.24 H, Nucleated RBC % 0, Differential Comment , Platelet Estimate ADEQUATE, RBC Morphology NORM C+C 09/08/21 20:26: PT 13.6, INR 1.1, APTT 31.1 09/08/21 20:26: Sodium 137, Potassium 4.0, Chloride 105, Carbon Dioxide 19.0 L, Anion Gap 13, BUN 25 H, Creatinine 1.46 H, Estim Creat Clear Calc 39.37, Est GFR (MDRD) Af Amer 48 L, Est GFR (MDRD) Non-Af 40 L, BUN/Creatinine Ratio 17.1, Glucose 468 H*, Calcium 9.2, Troponin I High Sens 13 09/08/21 20:26: Lactic Acid 7.6 H* 09/08/21 20:26: B-Natriuretic Peptide 618.5 H 09/08/21 20:26: Magnesium 2.3 09/08/21 22:40: Troponin I High Sens 226 H* 09/09/21 00:50: POC Glucose 402 H 09/09/21 01:51: WBC 10.9, RBC 4.66, Hgb 14.5, Hct 42.6, MCV 91.4 D, MCH 31.1, MCHC 34.0 D, RDW Std Deviation 44.5 H, RDW Coeff of [place] 13.2, Plt Count 228, MPV 10.2, Immature Gran % (Auto) 0.500, Neut % (Auto) 89.6 H, Lymph % (Auto) 7.1 L, [place] % (Auto) 2.7, Eos % (Auto) 0.0, Baso % (Auto) 0.1, Absolute Neuts (auto) 9.8 H, Absolute Lymphs (auto) 0.77 L, Nucleated RBC % 0 09/09/21 01:51: Sodium 138, Potassium 4.1, Chloride 109 H, Carbon Dioxide 23.0, Anion Gap 6, BUN 27 H, Creatinine 1.23 H, Estim Creat Clear Calc 46.73, Est GFR (MDRD) Af Amer 59 L, Est GFR (MDRD) Non-Af 49 L, BUN/Creatinine Ratio 22.0 H, Glucose 348 H, Calcium 9.1, Total Bilirubin 0.80, AST 51 H, ALT 41, Alkaline Phosphatase 94, Total Protein 7.9, Albumin 3.7, Globulin 4.2, Albumin/Globulin Ratio 0.9, Triglycerides 69, Cholesterol 134, LDL Cholesterol 55, VLDL Cholesterol 14, HDL Cholesterol 65 09/09/21 01:51: Troponin I High Sens 1525 H* 09/09/21 01:51: Lactic Acid 2.0 09/09/21 05:36: POC Glucose 251 H ABG Data ABG results: ABG 09/08/21 09/09/21 21:14 00:19 Specimen Type ART ART Sample Site L Radial L Radial pH 7.22 L 7.36 Bicarbonate Actual 17.7 L 22.1 Total CO2 19 23 Base Excess -10 L -3 L O2 Saturation 96 99 O2 % 100 70 ABG pCO2 43.9 39.1 ABG pO2 101 H 125 H Darron Test N/A N/A Respiration Rate 14 14 O2 Delivery Device Adult Vent Adult Vent Vent Mode AC AC Tidal Volume 450 450 POC PEEP 5 5 Rhythm Strip Rhythm Strip: Tachycardia Rate: 140 Cardiology Labs/Tests 09/08/21 20:20: Urine Color Yellow, Urine Clarity Sl. Cloudy, Urine pH 5.0, Ur Specific [place] 1.015, Urine Protein 100 H, Urine Glucose (UA) 1000 H, Urine Ketones Negative, Urine Occult Blood 250 H, Urine Nitrite Negative, Urine Bilirubin Negative, Urine Urobilinogen Normal, Ur Leukocyte Esterase Negative, Urine RBC 10-25 SEEN, Urine WBC 0-5 SEEN 09/08/21 20:26: WBC 14.7 H, RBC 4.74, Hgb 14.6, Hct 46.8, MCV 98.7, MCH 30.8, MCHC 31.2 L, Plt Count 280, MPV 10.9, Immature Gran % (Auto) 0.400, Neut % (Auto) 54.0, Lymph % (Auto) 42.3 H, [place] % (Auto) 2.6, Eos % (Auto) 0.3, Baso % (Auto) 0.4, Absolute Neuts (auto) 7.9 H, Nucleated RBC % 0 09/08/21 20:26: PT 13.6, INR 1.1, APTT 31.1 09/08/21 20:26: Sodium 137, Potassium 4.0, Chloride 105, Carbon Dioxide 19.0 L, Anion Gap 13, BUN 25 H, Creatinine 1.46 H, Est GFR (MDRD) Af Amer 48 L, Est GFR (MDRD) Non-Af 40 L, BUN/Creatinine Ratio 17.1, Glucose 468 H*, Calcium 9.2 09/08/21 20:26: Lactic Acid 7.6 H* 09/08/21 20:26: B-Natriuretic Peptide 618.5 H 09/08/21 20:26: Magnesium 2.3 09/08/21 21:14: pH 7.22 L, Bicarbonate Actual 17.7 L, Base Excess -10 L, O2 Saturation 96, ABG pCO2 43.9, ABG pO2 101 H, Darron Test N/A 09/09/21 00:19: pH 7.36, Bicarbonate Actual 22.1, Base Excess -3 L, O2 Saturation 99, ABG pCO2 39.1, ABG pO2 125 H, Darron Test N/A 09/09/21 01:51: WBC 10.9, RBC 4.66, Hgb 14.5, Hct 42.6, MCV 91.4 D, MCH 31.1, MCHC 34.0 D, Plt Count 228, MPV 10.2, Immature Gran % (Auto) 0.500, Neut % (Auto) 89.6 H, Lymph % (Auto) 7.1 L, [place] % (Auto) 2.7, Eos % (Auto) 0.0, Baso % (Auto) 0.1, Absolute Neuts (auto) 9.8 H, Nucleated RBC % 0 09/09/21 01:51: Sodium 138, Potassium 4.1, Chloride 109 H, Carbon Dioxide 23.0, Anion Gap 6, BUN 27 H, Creatinine 1.23 H, Est GFR (MDRD) Af Amer 59 L, Est GFR (MDRD) Non-Af 49 L, BUN/Creatinine Ratio 22.0 H, Glucose 348 H, Calcium 9.1, Total Bilirubin 0.80, Triglycerides 69, Cholesterol 134, LDL Cholesterol 55, VLDL Cholesterol 14, HDL Cholesterol 65 04/06/22 01:51: Lactic Acid 2.0 Rhythm: Sinus rhythm/sinus tachycardia EKG: Sinus rhythm; left bundle branch block ECHO: 05-22-2021 Interpretation Summary The study was technically difficult. Contrast injection was performed. Moderately dilated left ventricle. The estimated ejection fraction is 30 %. Septal motion consistent with IVCD. The left atrium is mildly enlarged. Moderate (2+) eccentric mitral valve insufficiency. Trivial tricuspid valve insufficiency. Trivial pulmonic valve insufficiency. Unable to estimate RV systolic pressure/pulmonary artery pressure due to technically difficult study. Transmitral doppler flow suggestive of impaired relaxation of left ventricle Cardiac Cath: 05-23-2021 CONCLUSIONS Coronary disease with previously placed stent in the left anterior descending artery noted to be patent. Left ventricular systolic dysfunction with 2+ mitral regurgitation. RECOMMENDATIONS Medical therapy DESCRIPTION OF PROCEDURE The patient arrived to the procedure lab. The risks and benefits of the procedure as well as a full description of our services here and current unavailability of surgical backup were fully explained to the patient and/or their significant other prior to the catheterization. The Timeout was completed, verifying the correct patient and procedure. The patient's procedural site was prepped and draped in the usual fashion. Local anesthetic was given subcutaneously to right groin region with Lidocaine 2%. Using a modified Seldinger technique, arterial access was obtained via the right femoral artery, a 5Fr sheath was inserted. Left Coronary Artery selective angiography was performed in multiple views using a 5 Fr. JL4 catheter. Right Coronary Artery selective angiography was then performed in multiple views using a 5 Fr. 3DRC (Scott) catheter. Left Ventriculography was performed in SMALL projection using a 5 Fr. Pigtail catheter. LV to AO pullback pressures were then recorded.The arterial sheath was pulled and a Mynx closure device was deployed for hemostasis CORONARY ANGIOGRAPHY DOMINANCE: Right Dominant LEFT HEART ASSESSMENT Left Ventricular Ejection Fraction: by LV Gram 35 % Global Hypokinesis - Moderate Depressed Left Ventricular systolic function LEFT MAIN: Angiographically normal LEFT ANTERIOR DESCENDING ARTERY: MID LAD: Previously placed stent is patent CIRCUMFLEX ARTERY: Mild luminal irregularities RIGHT CORONARY ARTERY: No significant disease noted VALVE FINDINGS: Mitral Valve Insufficiency - Grade 2 COMPLICATIONS No Complications PCI: 05-19-2021 LAD PCI/BEATRICE: [place] 2.5 x 15 Radiography Diagnostic Testing: Radiology Impression Chest X-Ray 09/08/21 20:50 IMPRESSION: Findings most suggest CHF/pulmonary edema. Question of a left hilar mass versus artifact. Consider chest CT if clinically indicated. Support hardware as above. Electronically Signed: Sterling Guardado MD at 21:37 EDT , KUB X-Ray 09/08/21 20:58 IMPRESSION: Enteric tube tip is within the stomach which appears distended and gas-filled. Electronically Signed: Sterling Guardado MD at 21:42 EDT ,
[2021-09-09] MEDS: Lisinopril 20 MG Tablet PO (09:53)
[2021-09-09] MEDS: Carvedilol 6.25 MG Tablet PO (09:53)
[2021-09-09] MEDS: Furosemide 40 MG/4 ML Vial IV (09:54)
[2021-09-09] MEDS: Isosorbide Mononitrate 30 MG Tablet PO (09:54)
[2021-09-09] MEDS: Pantoprazole Sodium 40 MG Tablet PO (09:54)
[2021-09-09] MEDS: Potassium Chloride Oral Tablet 20 MEQ PO (09:54)
[2021-09-09] MEDS: CHLORHEXIDINE GLUC 2% CLOTH 1 EACH TOWELETTE TOPICAL (09:54)
[2021-09-09] MEDS: Clopidogrel Bisulfate 75 MG Tablet PO (09:54)
[2021-09-09] MEDS: Aspirin 81 MG TAB.CHEW PO (09:54)
--- NOTE | 2021-09-09 10:22 | CT_ITS ---
STUDY: CTA CHEST REASON FOR EXAM: Female, 50 years old. PE rule out RADIATION DOSAGE (If Supplied By Facility): CTDIvol = ( 11.025 ) mGy, DLP = ( 481.20 ) mGycm TECHNIQUE: The examination was performed with the intravenous administration of IV 100mL [id number]-[id number]. Post-processing of the angiographic images was performed, with multiplanar reformation and 3D reconstruction. Individualized dose optimization techniques were used for this CT. COMPARISON: Comparison is made with prior study dated 06/04/2021. FINDINGS: Endotracheal tube is in situ. Stable heterogeneous appearance of the thyroid gland with small nodules. Normal enhancement of the main pulmonary artery and right and left pulmonary arteries. Normal enhancement of the bilateral peripheral pulmonary arteries. There is no demonstrated pulmonary embolism. There is atherosclerotic calcification of the aortic arch with tortuosity. There is no demonstrated aortic dissection. There is cardiomegaly. Normal mediastinum. Normal hilar regions. Normal visualized trachea and bronchi. The lungs are well expanded. Small bilateral pleural effusions with atelectasis and/or infiltrates at the lung bases. Normal chest wall structures. Normal osseous structures. The patient is status post cholecystectomy. An oral gastric tube is seen within the stomach. CT/CTA Chest W/WO Contrast IMPRESSION: Small bilateral pleural effusions with bibasilar atelectasis and/or infiltrates. No evidence of pulmonary emboli. Electronically Signed: Mario Alberto Joy MD at 10:46 EDT ,
--- NOTE | 2021-09-09 10:24 | PN.HOSP_ITS ---
Subjective Subjective Patient was seen and examined today, I talked briefly with cardiology about her care. Patient is lightly sedated on the ventilator at this time. Objective Data Objective Data Vital Signs: Vital Signs Temp Pulse Resp BP Pulse Ox 98.3 F 86 19 H 121/69 H 97 09/09/21 08:00 09/09/21 10:00 09/09/21 10:00 09/09/21 10:00 09/09/21 10:00 Oxygen Delivery Method Mechanical Ventilator Weight: 92.986 kg Body Mass Index (BMI) 35.4 Intake & Output: Intake and Output for Last 24 Hours 09/07/21 09/08/21 09/09/21 23:59 23:59 23:59 Intake Total 14.89 / 14.89 232.59 / 232.59 Output Total 1200 / 1200 Balance 14.89 / 14.89 -967.41 / -967.41 Lab / Micro Data Result Diagrams: 09/09/21 01:51 09/09/21 01:51 Labs: Laboratory Results - last 24 hr 09/08/21 20:20: Urine Color Yellow, Urine Clarity Sl. Cloudy, Urine pH 5.0, Ur Specific [place] 1.015, Urine Protein 100 H, Urine Glucose (UA) 1000 H, Urine Ketones Negative, Urine Occult Blood 250 H, Urine Nitrite Negative, Urine Bilirubin Negative, Urine Urobilinogen Normal, Ur Leukocyte Esterase Negative, Urine RBC 10-25 SEEN, Urine WBC 0-5 SEEN, Ur Squamous Epith Cells 0 SEEN, Ur Transition Epith Cell 0-5 SEEN, Urine Bacteria 1+, Urine Mucus 0 SEEN 09/08/21 20:26: WBC 14.7 H, RBC 4.74, Hgb 14.6, Hct 46.8, MCV 98.7, MCH 30.8, MCHC 31.2 L, RDW Std Deviation 48.1 H, RDW Coeff of Tomi 13.1, Plt Count 280, MPV 10.9, Immature Gran % (Auto) 0.400, Neut % (Auto) 54.0, Lymph % (Auto) 42.3 H, Stevens % (Auto) 2.6, Eos % (Auto) 0.3, Baso % (Auto) 0.4, Absolute Neuts (auto) 7.9 H, Absolute Lymphs (auto) 6.24 H, Nucleated RBC % 0, Differential Comment , Platelet Estimate ADEQUATE, RBC Morphology NORM C+C 09/08/21 20:26: PT 13.6, INR 1.1, APTT 31.1 09/08/21 20:26: Sodium 137, Potassium 4.0, Chloride 105, Carbon Dioxide 19.0 L, Anion Gap 13, BUN 25 H, Creatinine 1.46 H, Estim Creat Clear Calc 39.37, Est GFR (MDRD) Af Amer 48 L, Est GFR (MDRD) Non-Af 40 L, BUN/Creatinine Ratio 17.1, Glucose 468 H*, Calcium 9.2, Troponin I High Sens 13 09/08/21 20:26: Lactic Acid 7.6 H* 09/08/21 20:26: B-Natriuretic Peptide 618.5 H 09/08/21 20:26: Magnesium 2.3 09/08/21 22:40: Troponin I High Sens 226 H* 09/09/21 00:50: POC Glucose 402 H 09/09/21 01:51: WBC 10.9, RBC 4.66, Hgb 14.5, Hct 42.6, MCV 91.4 D, MCH 31.1, MCHC 34.0 D, RDW Std Deviation 44.5 H, RDW Coeff of Tomi 13.2, Plt Count 228, MP V 10.2, Immature Gran % (Auto) 0.500, Neut % (Auto) 89.6 H, Lymph % (Auto) 7.1 L , Stevens % (Auto) 2.7, Eos % (Auto) 0.0, Baso % (Auto) 0.1, Absolute Neuts (auto) 9.8 H, Absolute Lymphs (auto) 0.77 L, Nucleated RBC % 0 09/09/21 01:51: Sodium 138, Potassium 4.1, Chloride 109 H, Carbon Dioxide 23.0, Anion Gap 6, BUN 27 H, Creatinine 1.23 H, Estim Creat Clear Calc 46.73, Est GFR (MDRD) Af Amer 59 L, Est GFR (MDRD) Non-Af 49 L, BUN/Creatinine Ratio 22.0 H, Glucose 348 H, Calcium 9.1, Total Bilirubin 0.80, AST 51 H, ALT 41, Alkaline Phosphatase 94, Total Protein 7.9, Albumin 3.7, Globulin 4.2, Albumin/Globulin Ratio 0.9, Triglycerides 69, Cholesterol 134, LDL Cholesterol 55, VLDL Cholesterol 14, HDL Cholesterol 65 09/09/21 01:51: Troponin I High Sens 1525 H* 09/09/21 01:51: Lactic Acid 2.0 09/09/21 05:36: POC Glucose 251 H ABG Data ABG results: ABG 09/08/21 09/09/21 21:14 00:19 Specimen Type ART ART Sample Site L Radial L Radial pH 7.22 L 7.36 Bicarbonate Actual 17.7 L 22.1 Total CO2 19 23 Base Excess -10 L -3 L O2 Saturation 96 99 O2 % 100 70 ABG pCO2 43.9 39.1 ABG pO2 101 H 125 H Darron Test N/A N/A Respiration Rate 14 14 O2 Delivery Device Adult Vent Adult Vent Vent Mode AC AC Tidal Volume 450 450 POC PEEP 5 5 Radiography Diagnostic Testing: Radiology Impression Chest X-Ray 09/08/21 20:50 IMPRESSION: Findings most suggest CHF/pulmonary edema. Question of a left hilar mass versus artifact. Consider chest CT if clinically indicated. Support hardware as above. Electronically Signed: Sterling Guardado MD at 21:37 EDT , KUB X-Ray 09/08/21 20:58 IMPRESSION: Enteric tube tip is within the stomach which appears distended and gas-filled. Electronically Signed: Sterling Guardado MD at 21:42 EDT , Rhythm Strip Rhythm Strip: Tachycardia Rate: 140 Physical Exam Const alert Constitutional Narrative: Patient is alert, she is lightly sedated and on the ventilator at this time General Appearance: cooperative, well kempt and well developed Orientation / Consciousness: awake, oriented to person, oriented to place and oriented to time HEENT normocephalic, head/scalp atraumatic and moist oral mucous membranes Head and Scalp: normocephalic Eyes PERRL, EOMs intact bilaterally and conjunctivae normal Neck nuchal rigidity, supple, no JVD, thyroid normal and no carotid bruits General: trachea midline Resp normal respiratory effort, no retractions, no use of accessory muscles and clear to auscultation bilaterally Auscultation: Negative for rales, rhonchi or wheezes Cardio regular rate, regular rhythm, S1 normal heart sound, S2 normal heart sound, no murmurs, no rub and no gallops GI normal to inspection, nondistended, normoactive bowel sounds, soft to palpation, non-tender and non-distended Extremity no clubbing, cyanosis or edema Skin no rashes or lesions noted General Skin Exam: no breakdown Neuro CN's II-XII intact bilaterally, no focal motor deficits and no sensory deficits noted Neuro Narrative: Patient is under light sedation on the ventilator Sensorium / Orientation: awake Speech: speech normal Psych Psych Narrative: Patient is lightly sedated and on the ventilator Assessment & Plan Assessment/Plan (1) Non-ST elevation (NSTEMI) myocardial infarction: PLAN: 1. Acute mvd-GIZQE-jrykarbfxy is participating in her care, she may ultimately need a cardiac catheterization. #2 acute hypoxic respiratory failure secondary to pulmonary edema-pulmonary medicine is participating in her care, she remains on the ventilator at this time #3 acute pulmonary edema-possibly secondary to acute non-STEMI with reduced EF, cardiology is participating in her care, IV Lasix will be continued #4 acute systolic congestive heart failure-cardiology is participating in her care, cardiac medications will be adjusted by cardiology #5 nonischemic cardiomyopathy-again, cardiology was participating in her care #6 essential hypertension-patient is currently on Zestril #7 type 2 diabetes-blood sugars will be monitored, sliding scale insulin will be employed Charges/Coding Visit Charges Inpatient E&M: 40807 Subs Hosp L2
[2021-09-09] MEDS: Vital High Protein 1,000 ML 55 ML GT (11:08)
[2021-09-09 11:40] LABS: Bedside Glucose 228 mg/dL (74-106)
[2021-09-09] MEDS: Propofol 10MG/Ml 1,000 MG/100 ML Bottle 17.3 MG CONT INF (12:24)
--- NOTE | 2021-09-09 14:30 | CASEMGMT ---
RN KVNG NOTE: Pt currently intubated. Plan is to do daily spontaneous awakening and breathing trials beginning tomorrow. ARIELLA CALDERON initial assessment deferred at this time. ARIELLA CALDERON to attempt at a later time. Romain BURNETT RN CM
--- NOTE | 2021-09-09 15:58 | CASEMGMT ---
Social Work Pt brother Joshua Hendrix and sister Soniya Albarran are here requesting to visit pt. SW explained that 2 visitors (same people) are allowed to visit for the duration of hospitalization. Currently patients two sons Klaus and Chance are listed. Joshua states he flew in from [place] today to see pt and is requesting visit. VITALY conferred with ICU staff and Soniya and Joshua are allowed one time visit. Pt significant other is Tino Clarisse and pt's HCPOA names him as HCPOA. VITALY placed phone call to Tino and explained that two visitors are allowed for duration of hospitalization. As HCPOA Tino may choose the two visitors. Tino made aware of Joshua and Soniya's one time visit and agreeable to this. Tino requesting that He and pt Brother Joshua Hendrix are two visitors for the remainder of hospitalization. Tino also made aware that all medical information will be given to Tino and Tino can update family as he deems fit. Tino agreeable to this. Tino did confirm that he notified both pt's sons Klaus and Chance, that they are no longer designated visitors. ARIELLA Lantigua updated on the above. JAMES Gambino
[2021-09-09 17:36] LABS: Bedside Glucose 209 mg/dL (74-106)
[2021-09-09] MEDS: Lansoprazole 15 MG Capsule.DR 30 MG NG (21:16)
[2021-09-09] MEDS: Atorvastatin Calcium 80 MG Tablet GT (21:16)
[2021-09-09 23:31] LABS: Bedside Glucose 213 mg/dL (74-106)
[2021-09-10] VITALS (35 sets, daily range): BP systolic 91–167; BP diastolic 45–91; PULSE 70–124; RESP 12–23; TEMP 36.2–37.1; O2SAT 90–100
[2021-09-10] MEDS: Propofol 10MG/Ml 1,000 MG/100 ML Bottle 8.7 MG CONT INF (02:03)
[2021-09-10 04:40] LABS: Absolute Lymphocyte Count 3.27 X10^3/uL (0.83-4.51); Absolute Neutrophil Count 8.7 X10^3/uL (2.0-7.7); Basophil# 0.01 X10^3/uL; Basophil% 0.1 % (0-1); Eosinophil# 0.01 X10^3/uL; Eosinophils% 0.1 % (0-5); Hematocrit 40.3 % (37-47); Hemoglobin 13.6 g/dL (12.0-15.0); Lymphocyte # 3.27 X10^3/ul (0.83-4.51); Lymphocyte % 25.4 % (19-41); Mean Corp Hgb Conc 33.7 g/dL (32-36); Mean Corpuscular Hgb 31.4 pg (27.0-32.0); Mean Corpuscular Volume 93.1 fL (81-99); Mean Platelet Vol. 10.4 fl (6.2-12.0); Monocyte# 0.89 X10^3/uL; Monocyte% 6.9 % (0-10); NRBC Flagged by Analyzer 0 % (0-5); Neutrophil # 8.66 X10^3/uL (2.7-7.7); Neutrophil % 67.2 % (47-70); Platelet Count 262 K/mm3 (150-450); RBC Distribution Width CV 13.6 % (11.6-14.6); Red Blood Count 4.33 M/mm3 (4.2-5.4); White Blood Count 12.9 K/mm3 (4.4-11.0)
[2021-09-10 04:54] LABS: Anion Gap 6 (5-15); BUN 39 mg/dL (7-18); BUN/Creat Ratio 33.1 RATIO (10-20); Calcium,Total 8.4 mg/dL (8.5-10.1); Chloride 107 mmol/L (98-107); Creatinine, Serum 1.18 mg/dL (0.55-1.02); EST Glomerular Filtration Rate 51 mL/min (>60); Est Glom Filt Rate - Afr Amer 62 mL/min (>60); Estimated Creatinine Clearance 48.71 ml/min; Glucose 239 mg/dL (74-106); Sodium Level 138 mmol/L (136-145)
--- NOTE | 2021-09-10 04:58 | NURSING ---
Pt relaxed on SBT, propofol on hold, fentanyl cont at 50mcg. Pt asking for news channel 8 to be on TV for distraction. Call light within reach.
--- NOTE | 2021-09-10 05:03 | NURSING ---
Pt placed call light on and asked to be suctioned; began coughing and it appeared that a lg amt thick mucus was coughed up and partially occluded ETT. Pt cont coughing strongly in attempts to clear, began to panic and cry while tapping siderails. Pt began to have sm amts of thick emesis around ETT at first, pt assisted on to her right side and mouth suctioned clear. RT at bedside and assists w/clearing ETT of mucus. Pt cont to have several more episodes of sm emesis amts around ETT. SBT terminated, propofol turned back on, fentanyl increased and PRN zofran given as per orders. Pt given emotional support until comfortably sedated. Complete bed change and bath performed.
[2021-09-10] MEDS: Ondansetron 4 MG/2 ML Vial IV ×2 (05:16→17:42)
--- NOTE | 2021-09-10 05:46 | PN.CC_ITS ---
Assessment & Plan Assessment/Plan (1) Acute respiratory failure: QUALIFIERS: Respiratory failure complication: hypoxia Qualified Code(s): J96.01 - Acute respiratory failure with hypoxia PLAN: RECOMMENDATIONS: 1. Continue assist control mode of mechanical ventilation. Wean FiO2 and PEEP to maintain saturations at or above 90%. 2. Continue propofol and fentanyl for sedation. 3. Resume tube feeds as tolerated. 4. Continue diuretics as tolerated by hemodynamics and renal function. 5. Continue appropriate GI prophylaxis. IMPRESSIONS: 1. Acute hypoxemic respiratory failure Most likely secondary to acute decompensated heart failure. In light of the patient's acute presentation, a CTA chest was obtained, which was negative for pulmonary embolism. Therefore, it is reasonable to continue current cardiac medical management with IV diuretic therapy as tolerated by hemodynamics and renal function. Cardiology is currently following to assist with medical management. Continue to wean FiO2 and PEEP to maintain oxygen saturations at or above 90%. Plan for daily paired spontaneous awakening and breathing trials. 2. Non-ST segment elevation [place] Continue medical management as noted above. Defer additional work-up to marketing director. 3. Hypertension/hyperlipidemia/GERD/sleep apnea/obesity Complicates care, management, recovery and prognosis. Continue home medications as indicated. TIME: 32 minutes of critical care time, independent of procedures, was spent addressing the patient's acute hypoxemic respiratory failure, NSTEMI, review of all data and collaboration with the care team. Subjective Subjective The patient was seen and examined at the bedside this morning. Events from the last 24 hours have been reviewed. The patient is currently afebrile, hemodynamically stable and maintaining appropriate oxygen saturations on assist control mode of mechanical ventilation with an FiO2 requirement of 45% and PEEP of 5. The patient is currently documented to be overall net -2.2 L for the hospitalization. Creatinine has improved to 1.18. This morning, per nursing report, during the patient's spontaneous breathing trial this morning she became anxious and had an emesis event. Therefore, her SBT was discontinued and she was placed back on assist control with propofol and fentanyl for sedation. Thick endotracheal secretions have also been noted. Objective Data Objective Data The patient's most recent lab work, culture data and imaging studies have all been personally reviewed. CTA chest was negative for pulmonary embolism. Surface echocardiogram demonstrated moderately severe segmental systolic dysfunction with an ejection fraction of 30%. Right ventricular systolic press ure was estimated to be 31 mmHg. Sputum and blood cultures are pending. Vital Signs: Vital Signs Temp Pulse Resp BP Pulse Ox 98.1 F 124 H 20 H 144/57 H 90 09/10/21 04:00 09/10/21 05:15 09/10/21 05:15 09/10/21 04:00 09/10/21 05:15 Oxygen Delivery Method Mechanical Ventilator Weight: 90.265 kg Body Mass Index (BMI) 35.4 Intake & Output: Intake and Output for Last 24 Hours 09/08/21 09/09/21 09/10/21 23:59 23:59 23:59 Intake Total 14.89 / 14.89 739.56 / 763.56 116.07 / 116.07 Output Total 3075 / 3075 Balance 14.89 / 14.89 -2335.44 / -2311.44 116.07 / 116.07 Lab / Micro Data Attestation: I reviewed the patient's lab results. Result Diagrams: 09/10/21 04:34 09/10/21 04:34 Labs: Laboratory Results - last 24 hr 09/09/21 05:36: POC Glucose 251 H 09/09/21 11:31: POC Glucose 228 H 09/09/21 17:21: POC Glucose 209 H 09/09/21 23:22: POC Glucose 213 H 09/10/21 04:34: WBC 12.9 H, RBC 4.33, Hgb 13.6, Hct 40.3, MCV 93.1, MCH 31.4, MCHC 33.7, RDW Std Deviation 46.0 H, RDW Coeff of Tomi 13.6, Plt Count 262, MPV 10.4, Immature Gran % (Auto) 0.300, Neut % (Auto) 67.2, Lymph % (Auto) 25.4, [place] % (Auto) 6.9, Eos % (Auto) 0.1, Baso % (Auto) 0.1, Absolute Neuts (auto) 8.7 H, Absolute Lymphs (auto) 3.27, Nucleated RBC % 0 09/10/21 04:34: Sodium 138, Potassium 4.0, Chloride 107, Carbon Dioxide 25.0, Anion Gap 6, BUN 39 H, Creatinine 1.18 H, Estim Creat Clear Calc 48.71, Est GFR (MDRD) Af Amer 62, Est GFR (MDRD) Non-Af 51 L, BUN/Creatinine Ratio 33.1 H, Glucose 239 H, Calcium 8.4 L Micro: Microbiology 09/08/21 21:20 Sputum, Tracheal Aspirate Gram Stain - Final Radiography Diagnostic Testing: Radiology Impression Echocardiogram 09/09/21 02:42 Interpretation Summary The study was technically difficult. Moderately severe segmental systolic dysfunction (see wall motion). The estimated ejection fraction is 30 %. Septal motion consistent with IVCD. There is mild mitral annular calcification. Extension of the mitral annular calcification onto the base of the posterior mi tral valve leaflet. Trivial mitral valve insufficiency. Mild to moderate (1-2+) eccentric tricuspid valve insufficiency. Trivial pulmonic valve insufficiency. Calcified aortic root. Right ventricular systolic pressure estimated to be 31 mmHg. Unable to assess diastolic dysfunction. Ordering Physician: Perlita Gómez Referring Physician: Margo Tatum Performed By: Lisha Ruvalcaba RCS Chest CTA 09/09/21 10:22 IMPRESSION: Small bilateral pleural effusions with bibasilar atelectasis and/or infiltrates. No evidence of pulmonary emboli. Electronically Signed: Mario Alberto Joy MD at 10:46 EDT , Rhythm Strip Rhythm Strip: Tachycardia Rate: 140 Physical Exam Const no apparent distress General Appearance: intubated and patient mechanically ventilated Nutritional Appearance: obese HEENT normocephalic and head/scalp atraumatic Mouth: endotracheal tube in place and OG tube in place Eyes PERRL and EOMs intact bilaterally Neck supple General: trachea midline Chest inspection of chest normal Resp Auscultation: diminished lung sounds; Negative for rales, rhonchi or wheezes Cardio regular rate and regular rhythm GI normal to inspection, nondistended, normoactive bowel sounds Extremity no clubbing, cyanosis or edema Skin no rashes or lesions noted Neuro Sensorium / Orientation: sedated on vent Charges/Coding Procedures Hospitalists Procedures: 28730 Critial Care 1st Hr
[2021-09-10] MEDS: Insulin Lispro 100 UNIT/ML INSULN.PEN SC ×4 (06:23→23:29)
[2021-09-10] MEDS: 0.9% Saline Lock 10 ML Syringe IV ×3 (06:24→17:42)
[2021-09-10 06:31] LABS: Bedside Glucose 256 mg/dL (74-106)
--- NOTE | 2021-09-10 07:33 | RAD_ITS ---
STUDY: X-RAY CHEST REASON FOR EXAM: Female, 50 years old. s/p emesis during SBT TECHNIQUE: Single AP portable view of the chest. COMPARISON: Comparison is made with prior study dated 09/08/2021. FINDINGS: An endotracheal tube is in situ. The tip is 4.4 cm proximal to the henrik. No orogastric tube is seen with the tip below the left hemidiaphragm. EKG electrodes are seen. Electrodes from a TENS unit are seen. Marked improvement in the aeration of both lungs. Mild residual increased markings are seen at the left lung base. There is no demonstrated pleural abnormality. Normal size heart. Normal mediastinum and tony. Normal visualized pulmonary arteries. Normal visualized aortic arch and descending thoracic aorta. Normal visualized thoracic spine. Normal visualized ribs, clavicles, and shoulders. There is no demonstrated abnormality of the visualized soft tissue structures of the upper abdomen. RAD/Chest 1 View (Portable) IMPRESSION: Marked improvement in the aeration of both lungs with mild residual changes at the left lung base. Electronically Signed: Mario Alberto Joy MD at 8:10 EDT ,
[2021-09-10] MEDS: Carvedilol 6.25 MG Tablet GT ×2 (08:24→17:25)
[2021-09-10] MEDS: Potassium Chloride Oral Soln 20 MEQ/15 ML UDC GT (08:24)
[2021-09-10] MEDS: Lansoprazole 15 MG Capsule.DR 30 MG NG ×2 (08:24→21:05)
[2021-09-10] MEDS: Chlorhexidine 15 ML PO ×2 (08:25→21:07)
[2021-09-10] MEDS: Aspirin 81 MG TAB.CHEW GT (08:25)
--- NOTE | 2021-09-10 09:45 | CASEMGMT ---
ARIELLA CM Face to Face with significant other for initial transition planning/care coordination assessment as patient is currently intubated. RN CM introduced self and role at [facility]. Significant other, Tino willing to participate in assessment and is able to answer all questions appropriately. Care providers, pharmacy, and demographics verified. Tino wishes to discharge home, but is willing for patient to go to SNF if necessary. Will monitor course of treatment and progress with therapy, possible HHC vs SNF. Tino states he has no further needs or concerns at this time. CM to follow for discharge planning needs that may arise. 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 Per Tino, patient is independent at home. Transportation: self, Tino DME/HHC: Patient has grab bars at home. No previous HHC or SNF. CM to monitor course of treatment and progress with therapy to determine discharge needs. Disposition Plan: TBD possible HHC vs SNF Ofelia BURNETT, RN, CM
[2021-09-10] MEDS: Propofol 10MG/Ml 1,000 MG/100 ML Bottle 11.5 MG CONT INF ×2 (09:49→17:23)
[2021-09-10] MEDS: Furosemide 40 MG/4 ML Vial IV ×2 (09:50→17:25)
[2021-09-10] MEDS: Enoxaparin 100 MG/ML Syringe 90 MG SC ×2 (09:50→21:26)
[2021-09-10] MEDS: Lisinopril 20 MG Tablet GT (09:50)
[2021-09-10] MEDS: Clopidogrel Bisulfate 75 MG Tablet GT (09:50)
--- NOTE | 2021-09-10 10:36 | PCM.PN.HOSP ---
Subjective Subjective Patient was seen and examined today, she remains under light sedation on the ventilator. She does not appear to be in any distress. Objective Data Objective Data Vital Signs: Vital Signs Temp Pulse Resp BP Pulse Ox 97.1 F L 74 14 97/83 H 96 09/10/21 08:00 09/10/21 10:00 09/10/21 10:00 09/10/21 10:00 09/10/21 10:00 Oxygen Flow Rate (L/min) 35 Oxygen Delivery Method Mechanical Ventilator Weight: 90.265 kg Body Mass Index (BMI) 35.4 Intake & Output: Intake and Output for Last 24 Hours 09/08/21 09/09/21 09/10/21 23:59 23:59 23:59 Intake Total 14.89 / 14.89 739.56 / 763.56 273.74 / 273.74 Output Total 3075 / 3075 300 / 300 Balance 14.89 / 14.89 -2335.44 / -2311.44 -26.26 / -26.26 Lab / Micro Data Result Diagrams: 09/10/21 04:34 09/10/21 04:34 Labs: Laboratory Results - last 24 hr 09/09/21 11:31: POC Glucose 228 H 09/09/21 17:21: POC Glucose 209 H 09/09/21 23:22: POC Glucose 213 H 09/10/21 04:34: WBC 12.9 H, RBC 4.33, Hgb 13.6, Hct 40.3, MCV 93.1, MCH 31.4, MCHC 33.7, RDW Std Deviation 46.0 H, RDW Coeff of Tomi 13.6, Plt Count 262, MPV 10.4, Immature Gran % (Auto) 0.300, Neut % (Auto) 67.2, Lymph % (Auto) 25.4, [place] % (Auto) 6.9, Eos % (Auto) 0.1, Baso % (Auto) 0.1, Absolute Neuts (auto) 8.7 H, Absolute Lymphs (auto) 3.27, Nucleated RBC % 0 09/10/21 04:34: Sodium 138, Potassium 4.0, Chloride 107, Carbon Dioxide 25.0, Anion Gap 6, BUN 39 H, Creatinine 1.18 H, Estim Creat Clear Calc 48.71, Est GFR (MDRD) Af Amer 62, Est GFR (MDRD) Non-Af 51 L, BUN/Creatinine Ratio 33.1 H, Glucose 239 H, Calcium 8.4 L 09/10/21 06:22: POC Glucose 256 H Micro: Microbiology 09/08/21 21:20 Sputum, Tracheal Aspirate Gram Stain - Final 09/08/21 21:20 Sputum, Tracheal Aspirate Respiratory Culture - Preliminary Appears to be normal respiratory raul. Further studies to follow. Radiography Diagnostic Testing: Radiology Impression Echocardiogram 09/09/21 02:42 Interpretation Summary The study was technically difficult. Moderately severe segmental systolic dysfunction (see wall motion). The estimated ejection fraction is 30 %. Septal motion consistent with IVCD. There is mild mitral annular calcification. Extension of the mitral annular calcification onto the base of the posterior mitral valve leaflet. Trivial mitral valve insufficiency. Mild to moderate (1-2+) eccentric tricuspid valve insufficiency. Trivial pulmonic valve insufficiency. Calcified aortic root. Right ventricular systolic pressure estimated to be 31 mmHg. Unable to assess diastolic dysfunction. Ordering Physician: Perlita Gómez Referring Physician: Margo Tatum Performed By: Lisha Ruvalcaba RCS Chest CTA 09/09/21 10:22 IMPRESSION: Small bilateral pleural effusions with bibasilar atelectasis and/or infiltrates. No evidence of pulmonary emboli. Electronically Signed: Mario Alberto Joy MD at 10:46 EDT , Chest X-Ray 09/10/21 07:33 IMPRESSION: Marked improvement in the aeration of both lungs with mild residual changes at the left lung base. Electronically Signed: Mario Alberto Joy MD at 8:10 EDT , Rhythm Strip Rhythm Strip: Tachycardia Rate: 140 Physical Exam Narrative Constitutional Narrative: Patient is alert, she is lightly sedated and on the ventilator at this time General Appearance: cooperative, well kempt and well developed Orientation / Consciousness: awake, oriented to person, oriented to place and oriented to time HEENT normocephalic, head/scalp atraumatic and moist oral mucous membranes Head and Scalp: normocephalic Eyes PERRL, EOMs intact bilaterally and conjunctivae normal Neck nuchal rigidity, supple, no JVD, thyroid normal and no carotid bruits General: trachea midline Resp normal respiratory effort, no retractions, no use of accessory muscles and clear to auscultation bilaterally Auscultation: Negative for rales, rhonchi or wheezes Cardio regular rate, regular rhythm, S1 normal heart sound, S2 normal heart sound, no murmurs, no rub and no gallops GI normal to inspection, nondistended, normoactive bowel sounds, soft to palpation, non-tender and non-distended Extremity no clubbing, cyanosis or edema Skin no rashes or lesions noted General Skin Exam: no breakdown Neuro CN's II-XII intact bilaterally, no focal motor deficits and no sensory deficits noted Neuro Narrative: Patient is under light sedation on the ventilator Sensorium / Orientation: awake Speech: speech normal Psych Psych Narrative: Patient is lightly sedated and on the ventilator Assessment & Plan Assessment/Plan (1) Non-ST elevation (NSTEMI) myocardial infarction: PLAN: 1. Acute cfx-EYYOL-roztaaoviz is participating in her care, she may ultimately need a cardiac catheterization. #2 acute hypoxic respiratory failure secondary to pulmonary edema-pulmonary medicine is participating in her care, she remains on the ventilator at this time #3 acute pulmonary edema-possibly secondary to acute non-STEMI with reduced EF, cardiology is participating in her care, IV Lasix will be continued, patient's echocardiogram performed yesterday showed an EF of 30% #4 acute systolic congestive heart failure-cardiology is participating in her care, cardiac medications will be adjusted by cardiology #5 nonischemic cardiomyopathy-again, cardiology was participating in her care #6 essential hypertension-patient is currently on Zestril #7 type 2 diabetes-blood sugars will be monitored, sliding scale insulin will be employed Charges/Coding Visit Charges Inpatient E&M: 38342 Subs Hosp L2
[2021-09-10 11:15] LABS: Bedside Glucose 216 mg/dL (74-106)
[2021-09-10] MEDS: CHLORHEXIDINE GLUC 2% CLOTH 1 EACH TOWELETTE TOPICAL (11:16)
[2021-09-10] MEDS: Vital High Protein 1,000 ML 55 ML GT (11:42)
--- NOTE | 2021-09-10 13:32 | PN.CARD_ITS ---
Subjective Subjective Patient was seen and evaluated. Still intubated but appears to be waking up slowly. Responds to some commands. Objective Data Vital Signs: Vital Signs Temp Pulse Resp BP Pulse Ox 97.9 F 76 14 96/56 L 94 09/10/21 12:00 09/10/21 13:00 09/10/21 13:00 09/10/21 13:00 09/10/21 13:00 Oxygen Flow Rate (L/min) 35 Oxygen Delivery Method Mechanical Ventilator Weight: 199 lb Body Mass Index (BMI) 35.4 Intake & Output: Intake and Output for Last 24 Hours 09/08/21 09/09/21 09/10/21 23:59 23:59 23:59 Intake Total 14.89 / 14.89 739.56 / 763.56 1019.24 / 1019.24 Output Total 3075 / 3075 650 / 650 Balance 14.89 / 14.89 -2335.44 / -2311.44 369.24 / 369.24 Lab / Micro Data Result Diagrams: 09/10/21 04:34 09/10/21 04:34 Labs: Laboratory Results - last 24 hr 09/09/21 17:21: POC Glucose 209 H 09/09/21 23:22: POC Glucose 213 H 09/10/21 04:34: WBC 12.9 H, RBC 4.33, Hgb 13.6, Hct 40.3, MCV 93.1, MCH 31.4, MCHC 33.7, RDW Std Deviation 46.0 H, RDW Coeff of Tomi 13.6, Plt Count 262, MPV 10.4, Immature Gran % (Auto) 0.300, Neut % (Auto) 67.2, Lymph % (Auto) 25.4, [place] % (Auto) 6.9, Eos % (Auto) 0.1, Baso % (Auto) 0.1, Absolute Neuts (auto) 8.7 H, Absolute Lymphs (auto) 3.27, Nucleated RBC % 0 09/10/21 04:34: Sodium 138, Potassium 4.0, Chloride 107, Carbon Dioxide 25.0, Anion Gap 6, BUN 39 H, Creatinine 1.18 H, Estim Creat Clear Calc 48.71, Est GFR (MDRD) Af Amer 62, Est GFR (MDRD) Non-Af 51 L, BUN/Creatinine Ratio 33.1 H, Glucose 239 H, Calcium 8.4 L 09/10/21 06:22: POC Glucose 256 H 09/10/21 11:12: POC Glucose 216 H Micro: Microbiology 09/08/21 21:20 Sputum, Tracheal Aspirate Gram Stain - Final 09/08/21 21:20 Sputum, Tracheal Aspirate Respiratory Culture - Preliminary Appears to be normal respiratory raul. Further studies to follow. Rhythm Strip Rhythm Strip: Tachycardia Rate: 140 Cardiology Labs/Tests 09/10/21 04:34: WBC 12.9 H, RBC 4.33, Hgb 13.6, Hct 40.3, MCV 93.1, MCH 31.4, MCHC 33.7, Plt Count 262, MPV 10.4, Immature Gran % (Auto) 0.300, Neut % (Auto) 67.2, Lymph % (Auto) 25.4, [place] % (Auto) 6.9, Eos % (Auto) 0.1, Baso % (Auto) 0.1, Absolute Neuts (auto) 8.7 H, Nucleated RBC % 0 09/10/21 04:34: Sodium 138, Potassium 4.0, Chloride 107, Carbon Dioxide 25.0, Anion Gap 6, BUN 39 H, Creatinine 1.18 H, Est GFR (MDRD) Af Amer 62, Est GFR (MDRD) Non-Af 51 L, BUN/Creatinine Ratio 33.1 H, Glucose 239 H, Calcium 8.4 L Rhythm: EKG: ECHO: Stress Test: Cardiac Cath: PCI: CT Surgery: Holter monitor: EPS: PPM: CXR: Chest CT Scan: Radiography Diagnostic Testing: Radiology Impression Chest X-Ray 09/10/21 07:33 IMPRESSION: Marked improvement in the aeration of both lungs with mild residual changes at the left lung base. Electronically Signed: Mario Alberto Joy MD at 8:10 EDT , Physical Exam Const alert, oriented x3 and no apparent distress General Appearance: cooperative HEENT hearing grossly normal bilaterally Head and Scalp: atraumatic Eyes EOMs intact bilaterally Neck General: normal visual inspection Chest inspection of chest normal and palpation of chest normal Resp normal respiratory effort Auscultation: clear to auscultation bilaterally Cardio regular rate, regular rhythm, S1 normal heart sound and S2 normal heart sound Jugular Venous Distention: JVD GI normal to inspection, nondistended, normoactive bowel sounds Extremity normal capillary refill and no pedal edema Peripheral Pulses: Yes pulses 2+ throughout and femoral pulses present Skin no rashes or lesions noted Neuro oriented x3 and CN's II-XII intact bilaterally Psych Appearance: grossly normal and appropriate Assessment & Plan Assessment/Plan (1) Non-ST elevation (NSTEMI) myocardial infarction: PLAN: The patient presents with abnormal cardiac enzymes compatible with an acute non-ST segment elevation [place]. Her left ventricular ejection fraction re erick low at 35%. With her cardiac enzyme elevation I would recommend that after she is extubated and stable we will pursue a left heart catheterization. I have discussed this with the family they understand and agree to proceed. I did suggest to her that this may be early next week. (2) History of coronary artery stent placement: PLAN: She has undergone previous PCI as noted. This involved the left anterior descending artery. It was reevaluated within a month of stent placement and the stent was patent at that time. We will reevaluate this again as noted above. (3) Congestive heart failure: QUALIFIERS: Heart failure type: systolic Heart failure chr onicity: acute Qualified Code(s): I50.21 - Acute systolic (congestive) heart failure PLAN: She presents with findings of an acute on chronic systolic mediated CHF.It is unclear whether this is related to progression of her CAD or possible LAD in-stent restenosis versus a non-CAD process. She will continue management as per the ICU team. This will involve diuretics and pressor agents as appropriate. She will continue to be sedated. (4) Hyperlipidemia: PLAN: She should continue risk factor evaluation care/medical therapy. (5) Benign hypertension: PLAN: Her blood pressure will need to be monitored with her medicines adjusted to assist with her blood pressure control taking into consideration her multiple medical diagnoses and comorbidities.
[2021-09-10 17:26] LABS: Bedside Glucose 209 mg/dL (74-106)
[2021-09-10] MEDS: Atorvastatin Calcium 80 MG Tablet GT (21:06)
[2021-09-11] VITALS (35 sets, daily range): BP systolic 108–186; BP diastolic 55–97; PULSE 69–98; RESP 12–23; TEMP 36.4–36.8; O2SAT 92–99
[2021-09-11 00:21] LABS: Bedside Glucose 190 mg/dL (74-106)
[2021-09-11] MEDS: Propofol 10MG/Ml 1,000 MG/100 ML Bottle 11.5 MG CONT INF (00:30)
[2021-09-11 03:20] LABS: Absolute Lymphocyte Count 1.81 X10^3/uL (0.83-4.51); Absolute Neutrophil Count 5.7 X10^3/uL (2.0-7.7); Basophil# 0.01 X10^3/uL; Basophil% 0.1 % (0-1); Eosinophil# 0.02 X10^3/uL; Eosinophils% 0.2 % (0-5); Hematocrit 34.5 % (37-47); Hemoglobin 11.3 g/dL (12.0-15.0); Lymphocyte # 1.81 X10^3/ul (0.83-4.51); Lymphocyte % 22.1 % (19-41); Mean Corp Hgb Conc 32.8 g/dL (32-36); Mean Corpuscular Hgb 30.6 pg (27.0-32.0); Mean Corpuscular Volume 93.5 fL (81-99); Mean Platelet Vol. 10.6 fl (6.2-12.0); Monocyte# 0.66 X10^3/uL; Monocyte% 8.1 % (0-10); NRBC Flagged by Analyzer 0 % (0-5); Neutrophil # 5.67 X10^3/uL (2.7-7.7); Neutrophil % 69.3 % (47-70); Platelet Count 189 K/mm3 (150-450); RBC Distribution Width CV 13.7 % (11.6-14.6); RBC Distribution Width SD 46.6 fl (35.1-43.9); Red Blood Count 3.69 M/mm3 (4.2-5.4); White Blood Count 8.2 K/mm3 (4.4-11.0)
[2021-09-11 03:37] LABS: ALB/GLOB Ratio 0.9 RATIO (0.9-2.4); AST(SGOT) 13 U/L (15-37); Alanine Aminotransfer ALT/SGPT 22 U/L (13-56); Albumin, Serum 3.1 g/dL (3.2-5.0); Alkaline Phosphatase 60 U/L (45-117); Anion Gap 5 (5-15); BUN 44 mg/dL (7-18); BUN/Creat Ratio 47.3 RATIO (10-20); Calcium,Total 8.3 mg/dL (8.5-10.1); Chloride 106 mmol/L (98-107); Creatinine, Serum 0.93 mg/dL (0.55-1.02); EST Glomerular Filtration Rate 67 mL/min (>60); Est Glom Filt Rate - Afr Amer 81 mL/min (>60); Globulin 3.5 g/dL (2.2-4.2); Glucose 212 mg/dL (74-106); Protein, Total 6.6 g/dL (6.4-8.2); Sodium Level 137 mmol/L (136-145)
[2021-09-11] MEDS: Ondansetron 4 MG/2 ML Vial IV (05:03)
[2021-09-11] MEDS: Insulin Lispro 100 UNIT/ML INSULN.PEN SC ×4 (05:29→23:08)
[2021-09-11 05:31] LABS: Bedside Glucose 238 mg/dL (74-106)
--- NOTE | 2021-09-11 06:04 | PN.CC_ITS ---
Assessment & Plan Assessment/Plan (1) Acute respiratory failure: QUALIFIERS: Respiratory failure complication: hypoxia Qualified Code(s): J96.01 - Acute respiratory failure with hypoxia PLAN: RECOMMENDATIONS: 1. Proceed with a trial of extubation this morning. 2. Once extubated, wean supplemental oxygen to maintain saturations at or above 90%. 3. Perform bedside swallow evaluation and advance diet accordingly. 4. Continue diuretics as tolerated by hemodynamics and renal function. 5. Continue Lovenox as ordered. 6. Encourage incentive spirometer use and mobilize patient as tolerated. IMPRESSIONS: 1. Acute hypoxemic respiratory failure Improved. Most likely secondary to acute decompensated heart failure. In light of the patient's acute presentation, a CTA chest was obtained, which was negative for pulmonary embolism. The patient has responded to invasive mechanical ventilatory support and IV diuretic therapy. Her respiratory status has improved and she was able to pass a spontaneous breathing trial. Therefore, we will proceed with a trial of extubation. Once extubated, supplemental oxygen will be weaned to maintain saturations at or above 90%. Bedside swallow evaluation will be completed and diet advanced accordingly. 2. Non-ST segment elevation [place] Continue medical management as noted above. Defer additional work-up to mortician investigator. 3. Hypertension/hyperlipidemia/GERD/sleep apnea/obesity Complicates care, management, recovery and prognosis. Continue home medications as indicated. TIME: 31 minutes of critical care time, independent of procedures, was spent addressing the patient's acute hypoxemic respiratory failure, NSTEMI, review of all data and collaboration with the care team. Subjective Subjective The patient was seen and examined at the bedside this morning. Events from the last 24 hours have been reviewed. The patient is currently afebrile, hemodynamically stable and maintaining appropriate oxygen saturations on spontaneous mode of mechanical ventilation with an FiO2 requirement of 25%. The patient has done well this morning on her spontaneous breathing trial. She is alert and following commands appropriately. The patient is documented to be overall net -1.7 L for the hospitalization. Creatinine has normalized. Blood sugars have been on the high side. Objective Data Objective Data The patient's most recent lab work, culture data and imaging studies have all been personally reviewed. CTA chest was negative for pulmonary embolism. Cunningham rface echocardiogram demonstrated moderately severe segmental systolic dysfunction with an ejection fraction of 30%. Right ventricular systolic pressure was estimated to be 31 mmHg. Sputum and blood cultures have demonstrated no growth to date. Vital Signs: Vital Signs Temp Pulse Resp BP Pulse Ox 97.8 F 83 16 163/75 H 96 09/11/21 03:00 09/11/21 06:00 09/11/21 06:00 09/11/21 06:00 09/11/21 04:59 Oxygen Flow Rate (L/min) 2 Oxygen Delivery Method Mechanical Ventilator Weight: 90.991 kg Body Mass Index (BMI) 35.4 Intake & Output: Intake and Output for Last 24 Hours 09/09/21 09/10/21 09/11/21 23:59 23:59 23:59 Intake Total 739.56 / 763.56 1838.44 / 1859.24 518.18 / 518.18 Output Total 3075 / 3075 1300 / 1300 450 / 450 Balance -2335.44 / -2311.44 538.44 / 559.24 68.18 / 68.18 Lab / Micro Data Attestation: I reviewed the patient's lab results. Result Diagrams: 09/11/21 03:05 09/11/21 03:05 Labs: Laboratory Results - last 24 hr 09/10/21 06:22: POC Glucose 256 H 09/10/21 11:12: POC Glucose 216 H 09/10/21 17:23: POC Glucose 209 H 09/10/21 23:28: POC Glucose 190 H 09/11/21 03:05: WBC 8.2, RBC 3.69 L, Hgb 11.3 L, Hct 34.5 L, MCV 93.5, MCH 30.6, MCHC 32.8, RDW Std Deviation 46.6 H, RDW Coeff of Tomi 13.7, Plt Count 189, MPV 10.6, Immature Gran % (Auto) 0.200, Neut % (Auto) 69.3, Lymph % (Auto) 22.1, [place] % (Auto) 8.1, Eos % (Auto) 0.2, Baso % (Auto) 0.1, Absolute Neuts (auto) 5.7, Absolute Lymphs (auto) 1.81, Nucleated RBC % 0 09/11/21 03:05: Sodium 137, Potassium 4.0, Chloride 106, Carbon Dioxide 26.0, Anion Gap 5, BUN 44 H, Creatinine 0.93, Estim Creat Clear Calc 61.80, Est GFR (MDRD) Af Amer 81, Est GFR (MDRD) Non-Af 67, BUN/Creatinine Ratio 47.3 H, Glucose 212 H, Calcium 8.3 L, Total Bilirubin 0.50, AST 13 L, ALT 22, Alkaline Phosphatase 60, Total Protein 6.6, Albumin 3.1 L, Globulin 3.5, Albumin/Globulin Ratio 0.9 09/11/21 05:25: POC Glucose 238 H Micro: Microbiology 09/08/21 21:20 Sputum, Tracheal Aspirate Gram Stain - Final 09/08/21 21:20 Sputum, Tracheal Aspirate Respiratory Culture - Preliminary Appears to be normal respiratory raul. Further studies to follow. Radiography Diagnostic Testing: Radiology Impression Chest X-Ray 09/10/21 07:33 IMPRESSION: Marked improvement in the aeration of both lungs with mild residual changes at the left lung base. Electronically Signed: Mario Alberto Joy MD at 8:10 EDT , Rhythm Strip Rhythm Strip: Tachycardia Rate: 140 Physical Exam Const alert and no apparent distress General Appearance: intubated and patient mechanically ventilated Nutritional Appearance: obese HEENT normocephalic and head/scalp atraumatic Mouth: endotracheal tube in place and OG tube in place Eyes PERRL and EOMs intact bilaterally Neck supple General: trachea midline Chest inspection of chest normal Resp Auscultation: diminished lung sounds; Negative for rales, rhonchi or wheezes Cardio regular rate and regular rhythm GI normal to inspection, nondistended, normoactive bowel sounds Extremity no clubbing, cyanosis or edema Skin no rashes or lesions noted Neuro no focal motor deficits Neuro Narrative: Alert and following commands appropriately. Psych cooperative Charges/Coding Procedures Hospitalists Procedures: [id number] Critial Care 1st Hr
--- NOTE | 2021-09-11 07:43 | PN.CARD_ITS ---
Subjective Subjective Patient seen and evaluated. Successfully extubated. Doing well alert and oriented. Objective Data Vital Signs: Vital Signs Temp Pulse Resp BP Pulse Ox 97.8 F 80 18 161/78 H 99 09/11/21 03:00 09/11/21 07:14 09/11/21 07:00 09/11/21 07:00 09/11/21 07:00 Oxygen Flow Rate (L/min) 2 Oxygen Delivery Method Nasal Cannula Weight: 200 lb 9.6 oz Body Mass Index (BMI) 35.4 Intake & Output: Intake and Output for Last 24 Hours 09/09/21 09/10/21 09/11/21 23:59 23:59 23:59 Intake Total 739.56 / 763.56 1838.44 / 1859.24 518.18 / 518.18 Output Total 3075 / 3075 1300 / 1300 450 / 450 Balance -2335.44 / -2311.44 538.44 / 559.24 68.18 / 68.18 Lab / Micro Data Result Diagrams: 09/11/21 03:05 09/11/21 03:05 Labs: Laboratory Results - last 24 hr 09/10/21 11:12: POC Glucose 216 H 09/10/21 17:23: POC Glucose 209 H 09/10/21 23:28: POC Glucose 190 H 09/11/21 03:05: WBC 8.2, RBC 3.69 L, Hgb 11.3 L, Hct 34.5 L, MCV 93.5, MCH 30.6, MCHC 32.8, RDW Std Deviation 46.6 H, RDW Coeff of Tomi 13.7, Plt Count 189, MPV 10.6, Immature Gran % (Auto) 0.200, Neut % (Auto) 69.3, Lymph % (Auto) 22.1, [place] % (Auto) 8.1, Eos % (Auto) 0.2, Baso % (Auto) 0.1, Absolute Neuts (auto) 5.7, Absolute Lymphs (auto) 1.81, Nucleated RBC % 0 09/11/21 03:05: Sodium 137, Potassium 4.0, Chloride 106, Carbon Dioxide 26.0, Anion Gap 5, BUN 44 H, Creatinine 0.93, Estim Creat Clear Calc 61.80, Est GFR (MDRD) Af Amer 81, Est GFR (MDRD) Non-Af 67, BUN/Creatinine Ratio 47.3 H, Glucose 212 H, Calcium 8.3 L, Total Bilirubin 0.50, AST 13 L, ALT 22, Alkaline Phosphatase 60, Total Protein 6.6, Albumin 3.1 L, Globulin 3.5, Albumin/Globulin Ratio 0.9 09/11/21 05:25: POC Glucose 238 H Micro: Microbiology 09/08/21 21:20 Sputum, Tracheal Aspirate Gram Stain - Final 09/08/21 21:20 Sputum, Tracheal Aspirate Respiratory Culture - Preliminary Appears to be normal respiratory raul. Further studies to follow. Rhythm Strip Rhythm Strip: Tachycardia Rate: 140 Cardiology Labs/Tests 09/11/21 03:05: WBC 8.2, RBC 3.69 L, Hgb 11.3 L, Hct 34.5 L, MCV 93.5, MCH 30.6, MCHC 32.8, Plt Count 189, MPV 10.6, Immature Gran % (Auto) 0.200, Neut % (Auto) 69.3, Lymph % (Auto) 22.1, [place] % (Auto) 8.1, Eos % (Auto) 0.2, Baso % (Auto) 0.1, Absolute Neuts (auto) 5.7, Nucleated RBC % 0 09/11/21 03:05: Sodium 137, Potassium 4.0, Chloride 106, Carbon Dioxide 26.0, Anion Gap 5, BUN 44 H, Creatinine 0.93, Est GFR (MDRD) Af Amer 81, Est GFR (MDRD) Non-Af 67, BUN/Creatinine Ratio 47.3 H, Glucose 212 H, Calcium 8.3 L, Total Bilirubin 0.50 Rhythm: EKG: ECHO: Stress Test: Cardiac Cath: PCI: CT Surgery: Holter monitor: EPS: PPM: CXR: Chest CT Scan: Radiography Diagnostic Testing: Radiology Impression Chest X-Ray 09/10/21 07:33 IMPRESSION: Marked improvement in the aeration of both lungs with mild residual changes at the left lung base. Electronically Signed: Mario Alberto Joy MD at 8:10 EDT , Physical Exam Const alert, oriented x3 and no apparent distress General Appearance: cooperative HEENT hearing grossly normal bilaterally Eyes EOMs intact bilaterally Neck General: normal visual inspection Chest inspection of chest normal and palpation of chest normal Resp normal respiratory effort Auscultation: clear to auscultation bilaterally and rhonchi throughout Cardio regular rate, regular rhythm, S1 normal heart sound and S2 normal heart sound Jugular Venous Distention: JVD GI normal to inspection, nondistended, normoactive bowel sounds Extremity normal capillary refill and no pedal edema Extremity Narrative: Bilateral Scott wraps Skin no rashes or lesions noted Neuro oriented x3 and CN's II-XII intact bilaterally Psych Appearance: grossly normal and appropriate Assessment & Plan Assessment/Plan (1) Non-ST elevation (NSTEMI) myocardial infarction: PLAN: The patient presents with abnormal cardiac enzymes compatible with an acute non-ST segment elevation [place]. Her left ventricular ejection fraction remains low at 35%. With her cardiac enzyme elevation I would recommend that after she is extubated and stable we will pursue a left heart catheterization. I have discussed this with the family they understand and agree to proceed. I did suggest to her that this may be early next week. We will restart her oral medications as she tolerates them. (2) History of coronary artery stent placement: PLAN: She has undergone previous PCI as noted. This involved the left ant erior descending artery. It was reevaluated within a month of stent placement and the stent was patent at that time. We will reevaluate this again as noted above. (3) Congestive heart failure: QUALIFIERS: Heart failure type: systolic Heart failure chronicity: acute Qualified Code(s): I50.21 - Acute systolic (congestive) heart failure PLAN: She presents with findings of an acute on chronic systolic mediated CHF.It is unclear whether this is related to progression of her CAD or possible LAD in-stent restenosis versus a non-CAD process. She will continue management as per the ICU team. This will involve diuretics and pressor agents as appropriate. She may need to be transferred to the progressive care unit later this weekend (4) Hyperlipidemia: PLAN: She should continue risk factor evaluation care/medical therapy. (5) Benign hypertension: PLAN: Her blood pressure will need to be monitored with her medicines adjusted to assist with her blood pressure control taking into consideration her multiple medical diagnoses and comorbidities.
[2021-09-11] MEDS: CHLORHEXIDINE GLUC 2% CLOTH 1 EACH TOWELETTE TOPICAL (10:15)
[2021-09-11] MEDS: Furosemide 40 MG/4 ML Vial IV ×2 (10:16→16:56)
[2021-09-11] MEDS: 0.9% Saline Lock 10 ML Syringe IV ×2 (10:16→21:10)
[2021-09-11] MEDS: Enoxaparin 100 MG/ML Syringe 90 MG SC ×2 (10:16→21:11)
--- NOTE | 2021-09-11 10:44 | PN_ITS ---
Subjective Subjective Patient was seen in exam today, she was extubated earlier today, she has a hoarse voice and she failed her swallowing exam so speech therapy is seeing her. I talked with her briefly, she has no complaints of any shortness of breath or chest discomfort at this time. She states that she was told by cardiology she w ould more than likely have a cardiac catheterization done on Tuesday. Objective Data Objective Data Vital Signs: Vital Signs Temp Pulse Resp BP Pulse Ox 98.3 F 91 20 H 149/83 H 94 09/11/21 08:00 09/11/21 10:00 09/11/21 10:00 09/11/21 10:00 09/11/21 10:00 Oxygen Flow Rate (L/min) 2 Oxygen Delivery Method Room Air Weight: 90.991 kg Body Mass Index (BMI) 35.4 Intake & Output: Intake and Output for Last 24 Hours 09/09/21 09/10/21 09/11/21 23:59 23:59 23:59 Intake Total 739.56 / 763.56 1838.44 / 1859.24 518.18 / 518.18 Output Total 3075 / 3075 1300 / 1300 450 / 450 Balance -2335.44 / -2311.44 538.44 / 559.24 68.18 / 68.18 Lab / Micro Data Result Diagrams: 09/11/21 03:05 09/11/21 03:05 Labs: Laboratory Results - last 24 hr 09/10/21 11:12: POC Glucose 216 H 09/10/21 17:23: POC Glucose 209 H 09/10/21 23:28: POC Glucose 190 H 09/11/21 03:05: WBC 8.2, RBC 3.69 L, Hgb 11.3 L, Hct 34.5 L, MCV 93.5, MCH 30.6, MCHC 32.8, RDW Std Deviation 46.6 H, RDW Coeff of Tomi 13.7, Plt Count 189, MPV 10.6, Immature Gran % (Auto) 0.200, Neut % (Auto) 69.3, Lymph % (Auto) 22.1, [place] % (Auto) 8.1, Eos % (Auto) 0.2, Baso % (Auto) 0.1, Absolute Neuts (auto) 5.7, Absolute Lymphs (auto) 1.81, Nucleated RBC % 0 09/11/21 03:05: Sodium 137, Potassium 4.0, Chloride 106, Carbon Dioxide 26.0, Anion Gap 5, BUN 44 H, Creatinine 0.93, Estim Creat Clear Calc 61.80, Est GFR (MDRD) Af Amer 81, Est GFR (MDRD) Non-Af 67, BUN/Creatinine Ratio 47.3 H, Glucose 212 H, Calcium 8.3 L, Total Bilirubin 0.50, AST 13 L, ALT 22, Alkaline P hosphatase 60, Total Protein 6.6, Albumin 3.1 L, Globulin 3.5, Albumin/Globulin Ratio 0.9 09/11/21 05:25: POC Glucose 238 H Micro: Microbiology 09/08/21 21:20 Sputum, Tracheal Aspirate Gram Stain - Final 09/08/21 21:20 Sputum, Tracheal Aspirate Respiratory Culture - Final Mixed normal respiratory raul. No Streptococcus pneumoniae, beta-hemolytic Streptococcus or Staphylococcus aureus isolated. Rhythm Strip Rhythm Strip: Tachycardia Rate: 140 Physical Exam Const alert, oriented x3, no apparent distress and healthy appearing General Appearance: cooperative, well kempt and well developed Orientation / Consciousness: awake, oriented to person, oriented to place and oriented to time HEENT normocephalic, head/scalp atraumatic and moist oral mucous membranes Eyes PERRL, EOMs intact bilaterally and conjunctivae normal Neck nuchal rigidity, supple, no JVD, thyroid normal and no carotid bruits General: trachea midline Resp normal respiratory effort, normal air movement and clear to auscultation bilaterally Auscultation: Negative for rales, rhonchi or wheezes Cardio regular rate, regular rhythm, S1 normal heart sound, S2 normal heart sound, no murmurs, no rub and no gallops GI normal to inspection, nondistended, normoactive bowel sounds, soft to palpation, non-tender and non-distended Skin no rashes or lesions noted General Skin Exam: no breakdown Neuro oriented x3, CN's II-XII intact bilaterally, no focal motor deficits and no sensory deficits noted Sensorium / Orientation: awake and alert Speech: speech normal Psych affect normal Assessment & Plan Assessment/Plan (1) Non-ST elevation (NSTEMI) myocardial infarction: PLAN: 1. Acute [id number] is participating in her care, she is likely to undergo cardiac catheterization on Tuesday #2 acute hypoxic respiratory failure secondary to pulmonary edema-pulmonary medicine is participating in her care, patient is currently on room air #3 acute pulmonary edema-possibly secondary to acute non-STEMI with reduced EF, cardiology is participating in her care, IV Lasix will be continued, patient's echocardiogram performed showed an EF of 30% #4 acute systolic congestive heart failure-cardiology is participating in her care, cardiac medications will be adjusted by cardiology #5 nonischemic cardiomyopathy-again, cardiology was participating in her care #6 essential hypertension-patient is currently on Zestril #7 type 2 diabetes-blood sugars will be monitored, sliding scale insulin will be employed #8 oropharyngeal dysphagia-possibly secondary to intubation, patient will be seen by speech therapy Charges/Coding Visit Charges Inpatient E&M: 48343 Subs Hosp L2
--- NOTE | 2021-09-11 11:30 | CASEMGMT ---
ARIELLA CALDERON NOTE: ARIELLA CALDERON made aware pt's Sig other, Tino, has a question and asking for CM/SW. ARIELLA CM to room. Pt sitting up in recliner chair. Tino @ bedside. Tino states that pt would like to update her HPOA and have her son, Chance, listed as an alternative. Pt states this is her wishes. She states she wishes to keep Tino as her primary HPOA and Klaus as 1st alternative, but would also like to have her son, Chance, listed as alternative POA, and then her sister, listed last. Pt and Tino made aware that new HPOA would need completed and SW would be notified and to complete w/pt when available. They were made SW may not be available through the weekend. They voice understanding. VITALY, Melvina, made aware. Romain BURNETT RN, CM
[2021-09-11 11:55] LABS: Bedside Glucose 189 mg/dL (74-106)
--- NOTE | 2021-09-11 14:46 | CASEMGMT ---
ARIELLA CALDERON NOTE: Pt qualifies for a Palliative referral per the [facility] palliative screening tool at this time. Dr Staples aware but is not agreeable to Palliative referral at this time, stating he spoke w/pt and family and they are not interested in Palliative care at this time. Romain BURNETT RN CM
[2021-09-11] MEDS: BENZOCAINE/MENTHOL 1 LOZENGE MUCOUS MEM ×2 (16:06→21:11)
[2021-09-11 17:06] LABS: Bedside Glucose 157 mg/dL (74-106)
[2021-09-11 23:16] LABS: Bedside Glucose 161 mg/dL (74-106)
[2021-09-12] VITALS (19 sets, daily range): BP systolic 95–145; BP diastolic 53–90; PULSE 69–96; RESP 15–27; TEMP 36.1–36.6; O2SAT 92–98
[2021-09-12 03:26] LABS: Absolute Lymphocyte Count 2.04 X10^3/uL (0.83-4.51); Absolute Neutrophil Count 5.4 X10^3/uL (2.0-7.7); Basophil# 0.02 X10^3/uL; Basophil% 0.2 % (0-1); Eosinophil# 0.06 X10^3/uL; Eosinophils% 0.7 % (0-5); Hematocrit 39.3 % (37-47); Hemoglobin 13.2 g/dL (12.0-15.0); Lymphocyte # 2.04 X10^3/ul (0.83-4.51); Mean Corp Hgb Conc 33.6 g/dL (32-36); Mean Corpuscular Hgb 30.8 pg (27.0-32.0); Mean Corpuscular Volume 91.8 fL (81-99); Mean Platelet Vol. 10.3 fl (6.2-12.0); Monocyte# 0.63 X10^3/uL; Monocyte% 7.7 % (0-10); NRBC Flagged by Analyzer 0 % (0-5); Neutrophil # 5.39 X10^3/uL (2.7-7.7); Neutrophil % 66.2 % (47-70); Platelet Count 211 K/mm3 (150-450); RBC Distribution Width CV 13.3 % (11.6-14.6); RBC Distribution Width SD 45.3 fl (35.1-43.9); Red Blood Count 4.28 M/mm3 (4.2-5.4); White Blood Count 8.2 K/mm3 (4.4-11.0)
[2021-09-12 03:45] LABS: ALB/GLOB Ratio 0.8 RATIO (0.9-2.4); AST(SGOT) 12 U/L (15-37); Alanine Aminotransfer ALT/SGPT 21 U/L (13-56); Albumin, Serum 3.6 g/dL (3.2-5.0); Alkaline Phosphatase 65 U/L (45-117); Anion Gap 5 (5-15); BUN 33 mg/dL (7-18); Chloride 106 mmol/L (98-107); Creatinine, Serum 0.94 mg/dL (0.55-1.02); EST Glomerular Filtration Rate 66 mL/min (>60); Est Glom Filt Rate - Afr Amer 80 mL/min (>60); Estimated Creatinine Clearance 61.14 ml/min; Globulin 4.4 g/dL (2.2-4.2); Glucose 145 mg/dL (74-106); Potassium 3.7 mmol/L (3.5-5.1); Sodium Level 140 mmol/L (136-145)
[2021-09-12] MEDS: Insulin Lispro 100 UNIT/ML INSULN.PEN SC ×4 (05:23→21:37)
[2021-09-12 05:35] LABS: Bedside Glucose 167 mg/dL (74-106)
--- NOTE | 2021-09-12 05:42 | PCM.PN.INT ---
Assessment & Plan Assessment/Plan (1) Acute respiratory failure: QUALIFIERS: Respiratory failure complication: hypoxia Qualified Code(s): J96.01 - Acute respiratory failure with hypoxia PLAN: RECOMMENDATIONS: 1. If the patient passes her swallow evaluation today, transition from IV to p.o. Lasix regimen. 2. Continue to encourage incentive spirometer use and mobilize patient as tolerated. 3. Continue Lovenox as ordered. 4. The patient is medically stable for transfer out of the intensive care unit. IMPRESSIONS: 1. Acute hypoxemic respiratory failure Improved. Most likely secondary to acute decompensated heart failure. In light of the patient's acute presentation, a CTA chest was obtained, which was negative for pulmonary embolism. The patient has responded to invasive mechanical ventilatory support and IV diuretic therapy. Her respiratory status has improved and she was able to be extubated on September 11. The patient is currently maintaining appropriate oxygen saturations on room air. Once the patient passes her swallow evaluation, she can be transition from IV to p.o. Lasix. Continue to encourage incentive spirometer use and mobilize patient as tolerated. 2. Non-ST segment elevation [place] Continue medical management as noted above. Defer additional work-up to coconut boiler. 3. Hypertension/hyperlipidemia/GERD/sleep apnea/obesity Complicates care, management, recovery and prognosis. Continue home medications as indicated. This note was generated with [employer] dictation software. It may contain incorrect words, spelling, and punctuation that were not noted in checking the note before signing. Subjective Subjective The patient was seen and examined at the bedside this morning. Events from the last 24 hours have been reviewed. The patient is currently afebrile, hemodynamically stable and maintaining appropriate oxygen saturations on room air. The patient is currently documented to be overall net -4.5 L for the hospitalization. The patient remains on scheduled IV Lasix. The patient remains n.p.o., pending reevaluation by speech therapy today. Objective Data Objective Data The patient's most recent lab work, culture data and imaging studies have all been personally reviewed. CTA chest was negative for pulmonary embolism. Surface echocardiogram demonstrated moderately severe segmental systolic dysfunction with an ejection fraction of 30%. Right ventricular systolic pressure was estimated to be 31 mmHg. Sputum and blood cultures have demonstrated no growth to date. Vital Signs: Vital Signs Temp Pulse Resp BP Pulse Ox 97.8 F 79 17 116/53 L 95 09/12/21 03:00 09/12/21 04:00 09/12/21 04:00 09/12/21 04:00 09/12/21 04:00 Oxygen Flow Rate (L/min) 2 Oxygen Delivery Method Room Air Weight: 86.818 kg Body Mass Index (BMI) 35.4 Intake & Output: Intake and Output for Last 24 Hours 09/10/21 09/11/21 09/12/21 23:59 23:59 23:59 Intake Total 1838.44 / 1859.24 518.18 / 518.18 Output Total 1300 / 1300 2500 / 2850 750 / 750 Balance 538.44 / 559.24 -1981.82 / -2331.82 -750 / -750 Lab / Micro Data Attestation: I reviewed the patient's lab results. Result Diagrams: 09/12/21 03:20 09/12/21 03:20 Labs: Laboratory Results - last 24 hr 09/11/21 11:50: POC Glucose 189 H 09/11/21 16:55: POC Glucose 157 H 09/11/21 23:05: POC Glucose 161 H 09/12/21 03:20: WBC 8.2, RBC 4.28, Hgb 13.2, Hct 39.3, MCV 91.8, MCH 30.8, MCHC 33.6, RDW Std Deviation 45.3 H, RDW Coeff of Tomi 13.3, Plt Count 211, MPV 10.3, Immature Gran % (Auto) 0.200, Neut % (Auto) 66.2, Lymph % (Auto) 25.0, [place] % (Auto) 7.7, Eos % (Auto) 0.7, Baso % (Auto) 0.2, Absolute Neuts (auto) 5.4, Absolute Lymphs (auto) 2.04, Nucleated RBC % 0 09/12/21 03:20: Sodium 140, Potassium 3.7, Chloride 106, Carbon Dioxide 29.0, Anion Gap 5, BUN 33 H, Creatinine 0.94, Estim Creat Clear Calc 61.14, Est GFR (MDRD) Af Amer 80, Est GFR (MDRD) Non-Af 66, BUN/Creatinine Ratio 35.0 H, Glucose 145 H, Calcium 9.0, Total Bilirubin 0.80, AST 12 L, ALT 21, Alkaline Phosphatase 65, Total Protein 8.0, Albumin 3.6, Globulin 4.4 H, Albumin/Globulin Ratio 0.8 L 09/12/21 05:22: POC Glucose 167 H Micro: Microbiology 09/08/21 21:23 Blood Culture (Wb) - Anticubital Right Blood Culture - Preliminary No growth in 48 hours. 09/08/21 20:26 Blood Culture (Wb) - Arm Right Blood Culture - Preliminary No growth in 48 hours. 09/08/21 21:20 Sputum, Tracheal Aspirate Gram Stain - Final 09/08/21 21:20 Sputum, Tracheal Aspirate Respiratory Culture - Final Mixed normal respiratory raul. No Streptococcus pneumoniae, beta-hemolytic Streptococcus or Staphylococcus aureus isolated. Rhythm Strip Rhythm Strip: Tachycardia Rate: 140 Physical Exam Const alert, oriented x3 and no apparent distress General Appearance: cooperative Nutritional Appearance: obese HEENT normocephalic and head/scalp atraumatic Eyes PERRL, EOMs intact bilaterally and conjunctivae normal Neck supple General: trachea midline Chest inspection of chest normal Resp Auscultation: diminished lung sounds; Negative for rales, rhonchi or wheezes Cardio regular rate and regular rhythm GI normal to inspection, nondistended, normoactive bowel sounds Extremity no clubbing, cyanosis or edema Skin no rashes or lesions noted Neuro CN's II-XII intact bilaterally, moves all extremities and no focal motor deficits Psych cooperative and affect normal Charges/Coding Visit Charges Inpatient E&M: 23977 [facility] Hosp L3
[2021-09-12] MEDS: 0.9% Saline Lock 10 ML Syringe IV (10:33)
[2021-09-12] MEDS: Ondansetron 4 MG/2 ML Vial IV (10:34)
[2021-09-12] MEDS: Enoxaparin 100 MG/ML Syringe 90 MG SC ×2 (10:37→21:39)
[2021-09-12] MEDS: Furosemide 40 MG/4 ML Vial IV ×2 (10:37→17:29)
[2021-09-12] MEDS: Carvedilol 6.25 MG Tablet PO ×2 (11:40→17:27)
[2021-09-12] MEDS: Lisinopril 20 MG Tablet PO (11:41)
[2021-09-12] MEDS: Clopidogrel Bisulfate 75 MG Tablet PO (11:41)
[2021-09-12] MEDS: Aspirin 81 MG TAB.CHEW PO (11:42)
[2021-09-12] MEDS: Potassium Chloride Oral Tablet 20 MEQ PO (11:42)
[2021-09-12 11:51] LABS: Bedside Glucose 263 mg/dL (74-106)
--- NOTE | 2021-09-12 13:08 | PN.CARD_ITS ---
Subjective Subjective Seen and evaluated at bedside and discussed with the nursing staff Family at bedside at time of evaluation Sitting out in a chair no events from last night no symptoms of chest pain. Objective Data Vital Signs: Vital Signs Temp Pulse Resp BP Pulse Ox 97.6 F L 89 16 134/61 H 98 09/12/21 08:00 09/12/21 11:00 09/12/21 08:00 09/12/21 08:00 09/12/21 10:07 Oxygen Flow Rate (L/min) 2 Oxygen Delivery Method Room Air Weight: 191 lb 6.4 oz Body Mass Index (BMI) 35.4 Intake & Output: Intake and Output for Last 24 Hours 09/10/21 09/11/21 09/12/21 23:59 23:59 23:59 Intake Total 1838.44 / 1859.24 518.18 / 518.18 Output Total 1300 / 1300 2500 / 2850 750 / 750 Balance 538.44 / 559.24 -1981.82 / -2331.82 -750 / -750 Lab / Micro Data Result Diagrams: 09/12/21 03:20 09/12/21 03:20 Labs: Laboratory Results - last 24 hr 09/11/21 16:55: POC Glucose 157 H 09/11/21 23:05: POC Glucose 161 H 09/12/21 03:20: WBC 8.2, RBC 4.28, Hgb 13.2, Hct 39.3, MCV 91.8, MCH 30.8, MCHC 33.6, RDW Std Deviation 45.3 H, RDW Coeff of Tomi 13.3, Plt Count 211, MPV 10.3, Immature Gran % (Auto) 0.200, Neut % (Auto) 66.2, Lymph % (Auto) 25.0, [place] % (Auto) 7.7, Eos % (Auto) 0.7, Baso % (Auto) 0.2, Absolute Neuts (auto) 5.4, Absolute Lymphs (auto) 2.04, Nucleated RBC % 0 09/12/21 03:20: Sodium 140, Potassium 3.7, Chloride 106, Carbon Dioxide 29.0, Anion Gap 5, BUN 33 H, Creatinine 0.94, Estim Creat Clear Calc 61.14, Est GFR (MDRD) Af Amer 80, Est GFR (MDRD) Non-Af 66, BUN/Creatinine Ratio 35.0 H, Glucose 145 H, Calcium 9.0, Total Bilirubin 0.80, AST 12 L, ALT 21, Alkaline Phosphatase 65, Total Protein 8.0, Albumin 3.6, Globulin 4.4 H, Albumin/Globulin Ratio 0.8 L 09/12/21 05:22: POC Glucose 167 H 09/12/21 11:40: POC Glucose 263 H Micro: Microbiology 09/08/21 21:23 Blood Culture (Wb) - Anticubital Right Blood Culture - Preliminary No growth in 48 hours. 09/08/21 20:26 Blood Culture (Wb) - Arm Right Blood Culture - Preliminary No growth in 48 hours. Rhythm Strip Rhythm Strip: Tachycardia Rate: 140 Cardiology Labs/Tests 09/12/21 03:20: WBC 8.2, RBC 4.28, Hgb 13.2, Hct 39.3, MCV 91.8, MCH 30.8, MCHC 33.6, Plt Count 211, MPV 10.3, Immature Gran % (Auto) 0.200, Neut % (Auto) 66.2, Lymph % (Auto) 25.0, [place] % (Auto) 7.7, Eos % (Auto) 0.7, Baso % (Auto) 0.2, Absolute Neuts (auto) 5.4, Nucleated RBC % 0 09/12/21 03:20: Sodium 140, Potassium 3.7, Chloride 106, Carbon Dioxide 29.0, Anion Gap 5, BUN 33 H, Creatinine 0.94, Est GFR (MDRD) Af Amer 80, Est GFR (MDRD) Non-Af 66, BUN/Creatinine Ratio 35.0 H, Glucose 145 H, Calcium 9.0, Total Bilirubin 0.80 Rhythm: Normal sinus rhythm Physical Exam Narrative Alert orientated Sitting out in a chair still having mild shortness of breath front desk monitor normal sinus Cardiac exam S1-S2 regular no murmur no systolic or diastolic murmur Chest exam minimal bilateral basilar rales. Assessment & Plan Assessment/Plan (1) Cardiomyopathy, ischemic: (2) History of coronary artery stent placement: (3) Atherosclerotic heart disease of [place] coronary artery without angina pectoris: (4) HFrEF (heart failure with reduced ejection fraction): (5) Left bundle branch block (LBBB): (6) Benign hypertension: (7) Hyperlipidemia: (8) Type 2 diabetes mellitus: (9) Non-ST elevation (NSTEMI) myocardial infarction: PLAN: Patient was seen in the ICU she had no symptoms of chest pain and she been stable clinically She had mild bilateral basilar rales on physical exam Cardiac care plan recommendations; 1. Patient with history of ischemic cardiomyopathy with PCI and stent of LAD 2. This presentation with acute on chronic systolic heart failure with elevated cardiac biomarker With a clinical diagnosis of non-ST elevation RI versus type II RI with demand myocardial ischemia 3. Patient is scheduled to undergo cardiac catheterization on Tuesday by her primary road design engineer Dr. Ho I explained cardiac care plan recommendation to the patient, family and nursing staff.
--- NOTE | 2021-09-12 13:14 | NURSING ---
1245-report called to ARIELLA Johnson 1250-transported to [facility] via chair and this RN, transferred to PCU bed, nurse made aware patient arrived, on PCU heart monitor, call light in reach, bed exit on.
[2021-09-12] MEDS: BENZOCAINE/MENTHOL 1 LOZENGE MUCOUS MEM ×2 (16:32→21:33)
[2021-09-12] MEDS: Morphine 2 MG/ML Syringe IV ×2 (16:32→21:22)
[2021-09-12 16:35] LABS: Bedside Glucose 208 mg/dL (74-106)
--- NOTE | 2021-09-12 16:53 | PCM.PN.HOSP ---
Subjective Subjective Patient was seen and examined today, I talked briefly with cardiology about her care, her diet was advanced today, I also talked with her son who was present at the time my examination. Objective Data Objective Data Vital Signs: Vital Signs Temp Pulse Resp BP Pulse Ox 97 F L 73 16 107/68 96 09/12/21 16:27 09/12/21 16:27 09/12/21 16:27 09/12/21 16:27 09/12/21 16:27 Oxygen Flow Rate (L/min) 2 Oxygen Delivery Method Room Air Weight: 86.818 kg Body Mass Index (BMI) 35.4 Intake & Output: Intake and Output for Last 24 Hours 09/10/21 09/11/21 09/12/21 23:59 23:59 23:59 Intake Total 1838.44 / 1859.24 518.18 / 518.18 Output Total 1300 / 1300 2500 / 2850 750 / 750 Balance 538.44 / 559.24 -1981.82 / -2331.82 -750 / -750 Lab / Micro Data Result Diagrams: 09/12/21 03:20 09/12/21 03:20 Labs: Laboratory Results - last 24 hr 09/11/21 16:55: POC Glucose 157 H 09/11/21 23:05: POC Glucose 161 H 09/12/21 03:20: WBC 8.2, RBC 4.28, Hgb 13.2, Hct 39.3, MCV 91.8, MCH 30.8, MCHC 33.6, RDW Std Deviation 45.3 H, RDW Coeff of Tomi 13.3, Plt Count 211, MPV 10.3, Immature Gran % (Auto) 0.200, Neut % (Auto) 66.2, Lymph % (Auto) 25.0, [place] % (Auto) 7.7, Eos % (Auto) 0.7, Baso % (Auto) 0.2, Absolute Neuts (auto) 5.4, Absolute Lymphs (auto) 2.04, Nucleated RBC % 0 09/12/21 03:20: Sodium 140, Potassium 3.7, Chloride 106, Carbon Dioxide 29.0, Anion Gap 5, BUN 33 H, Creatinine 0.94, Estim Creat Clear Calc 61.14, Est GFR (MDRD) Af Amer 80, Est GFR (MDRD) Non-Af 66, BUN/Creatinine Ratio 35.0 H, Glucose 145 H, Calcium 9.0, Total Bilirubin 0.80, AST 12 L, ALT 21, Alkaline Phosphatase 65, Total Protein 8.0, Albumin 3.6, Globulin 4.4 H, Albumin/Globulin Ratio 0.8 L 09/12/21 05:22: POC Glucose 167 H 09/12/21 11:40: POC Glucose 263 H 09/12/21 16:31: POC Glucose 208 H Micro: Microbiology 09/08/21 21:23 Blood Culture (Wb) - Anticubital Right Blood Culture - Preliminary No growth in 48 hours. 09/08/21 20:26 Blood Culture (Wb) - Arm Right Blood Culture - Preliminary No growth in 48 hours. 09/08/21 21:20 Sputum, Tracheal Aspirate Gram Stain - Final 09/08/21 21:20 Sputum, Tracheal Aspirate Respiratory Culture - Final Mixed normal respiratory raul. No Streptococcus pneumoniae, beta-hemolytic Streptococcus or Staphylococcus aureus isolated. Rhythm Strip Rhythm Strip: Tachycardia Rate: 140 Physical Exam Const alert, oriented x3, no apparent distress and healthy appearing General Appearance: cooperative, well kempt and well developed Orientation / Consciousness: awake, oriented to person, oriented to place and oriented to time HEENT normocephalic and moist oral mucous membranes Eyes PERRL, EOMs intact bilaterally and conjunctivae normal Neck nuchal rigidity, supple, no JVD and thyroid normal General: trachea midline Resp normal respiratory effort, no retractions, no use of accessory muscles and clear to auscultation bilaterally Auscultation: Negative for rales, rhonchi or wheezes Cardio regular rate, regular rhythm, S1 normal heart sound, S2 normal heart sound, no murmurs, no rub and no gallops GI normal to inspection, nondistended, normoactive bowel sounds, soft to palpation, non-tender and non-distended Extremity no clubbing, cyanosis or edema Skin no rashes or lesions noted General Skin Exam: no breakdown Neuro oriented x3, CN's II-XII intact bilaterally, no focal motor deficits and no sensory deficits noted Sensorium / Orientation: awake and alert Speech: speech normal Psych affect normal Assessment & Plan Assessment/Plan (1) Non-ST elevation (NSTEMI) myocardial infarction: PLAN: 1. Acute icl-ZKMOU-imbpcjchsy is participating in her care, she is likely to undergo cardiac catheterization on Tuesday, patient appears stable for transfer to PCU at this time #2 acute hypoxic respiratory failure secondary to pulmonary edema-pulmonary medicine is participating in her care, patient is currently on room air #3 acute pulmonary edema-possibly secondary to acute non-STEMI with reduced EF, cardiology is participating in her care, IV Lasix will be continued, patient's echocardiogram performed showed an EF of 30% #4 acute systolic congestive heart failure-cardiology is participating in her care, cardiac medications will be adjusted by cardiology #5 nonischemic cardiomyopathy-again, cardiology was participating in her care #6 essential hypertension-patient is currently on Zestril #7 type 2 diabetes-blood sugars will be monitored, sliding scale insulin will be employed #8 oropharyngeal dysphagia-possibly secondary to intubation, patient will be seen by speech therapy, diet was advanced today Charges/Coding Visit Charges Inpatient E&M: 30055 Subs Hosp L2
--- NOTE | 2021-09-12 17:27 | CASEMGMT ---
Social Work This delinquency prevention social worker following up with patient in room to updated advanced directives, per patient request. This delinquency prevention social worker assisting patient in completing HCPOA and LW. Patient HCPOA is now Tino Robb (fiance). Second and third HCPOA's are Chance Morillo (son) and Aj Morillo (son). Patient completed both HCPOA and LW. This delinquency prevention social worker provided patient with originals of both documents and placed copy on patient chart. Alanis HARDING, TAYLOR
[2021-09-12] MEDS: Famotidine 200 MG/20 ML MDV 20 MG in 0.9% Normal Saline (Pres. free 8 ML 300 MG IV (21:29)
[2021-09-13] VITALS (9 sets, daily range): BP systolic 88–142; BP diastolic 49–68; PULSE 67–76; RESP 16–18; TEMP 36.1–37; O2SAT 96–100
[2021-09-13 00:31] LABS: Bedside Glucose 249 mg/dL (74-106)
[2021-09-13] MEDS: BENZOCAINE/MENTHOL 1 LOZENGE MUCOUS MEM (05:12)
[2021-09-13 06:01] LABS: Absolute Lymphocyte Count 2.27 X10^3/uL (0.83-4.51); Absolute Neutrophil Count 4.7 X10^3/uL (2.0-7.7); Basophil# 0.02 X10^3/uL; Basophil% 0.3 % (0-1); Eosinophil# 0.08 X10^3/uL; Hematocrit 39.1 % (37-47); Lymphocyte # 2.27 X10^3/ul (0.83-4.51); Lymphocyte % 29.4 % (19-41); Mean Corp Hgb Conc 33.2 g/dL (32-36); Mean Corpuscular Hgb 30.7 pg (27.0-32.0); Mean Corpuscular Volume 92.2 fL (81-99); Mean Platelet Vol. 10.8 fl (6.2-12.0); Monocyte# 0.63 X10^3/uL; Monocyte% 8.2 % (0-10); NRBC Flagged by Analyzer 0 % (0-5); Neutrophil # 4.71 X10^3/uL (2.7-7.7); Platelet Count 214 K/mm3 (150-450); RBC Distribution Width CV 13.6 % (11.6-14.6); Red Blood Count 4.24 M/mm3 (4.2-5.4); White Blood Count 7.7 K/mm3 (4.4-11.0)
[2021-09-13 06:22] LABS: Albumin, Serum 3.4 g/dL (3.2-5.0); BUN 48 mg/dL (7-18); BUN/Creat Ratio 40.7 RATIO (10-20); Creatinine, Serum 1.18 mg/dL (0.55-1.02); EST Glomerular Filtration Rate 51 mL/min (>60); Est Glom Filt Rate - Afr Amer 62 mL/min (>60); Estimated Creatinine Clearance 48.71 ml/min; Glucose 159 mg/dL (74-106); Protein, Total 7.5 g/dL (6.4-8.2)
[2021-09-13 06:23] LABS: ALB/GLOB Ratio 0.8 RATIO (0.9-2.4); AST(SGOT) 14 U/L (15-37); Alanine Aminotransfer ALT/SGPT 20 U/L (13-56); Alkaline Phosphatase 60 U/L (45-117); Anion Gap 8 (5-15); Chloride 103 mmol/L (98-107); Globulin 4.1 g/dL (2.2-4.2); Potassium 3.6 mmol/L (3.5-5.1); Sodium Level 136 mmol/L (136-145)
--- NOTE | 2021-09-13 06:45 | PCM.PN.INT ---
Assessment & Plan Assessment/Plan (1) Acute respiratory failure: QUALIFIERS: Respiratory failure complication: hypoxia Qualified Code(s): J96.01 - Acute respiratory failure with hypoxia PLAN: RECOMMENDATIONS: 1. Stop IV Lasix and transition to p.o. regimen. 2. Continue to encourage incentive spirometer use and mobilize patient as tolerated. 3. Continue Lovenox as ordered. 4. Given the patient's lack of further critical care or pulmonary needs, will sign off. Please call with any additional questions. IMPRESSIONS: 1. Acute hypoxemic respiratory failure Resolved. Most likely secondary to acute decompensated heart failure. In light of the patient's acute presentation, a CTA chest was obtained, which was negative for pulmonary embolism. The patient responded to invasive mechanical ventilatory support and IV diuretic therapy. Her respiratory status has improved and she was able to be extubated on September 11. The patient is currently maintaining appropriate oxygen saturations on room air. At this time, the patient is euvolemic and can be transition from IV to p.o. Lasix. Continue to encourage incentive spirometer use and mobilize patient as tolerated. 2. Non-ST segment elevation [place] Continue medical management as noted above. Defer additional work-up to bottom buffer. 3. Hypertension/hyperlipidemia/GERD/sleep apnea/obesity Complicates care, management, recovery and prognosis. Continue home medications as indicated. This note was generated with [employer] dictation software. It may contain incorrect words, spelling, and punctuation that were not noted in checking the note before signing. Subjective Subjective The patient was seen and examined at the bedside this morning. Events from the last 24 hours have been reviewed. The patient is currently afebrile, hemodynamically stable and maintaining appropriate oxygen saturations on room air. The patient is currently documented to be overall net -4.2 L for the hospitalization. The patient still remains on twice daily scheduled IV Lasix. Objective Data Objective Data The patient's most recent lab work, culture data and imaging studies have all been personally reviewed. CTA chest was negative for pulmonary embolism. Surface echocardiogram demonstrated moderately severe segmental systolic dysfunction with an ejection fraction of 30%. Right ventricular systolic pressure was estimated to be 31 mmHg. Sputum and blood cultures have demonstrated no growth to date. Vital Signs: Vital Signs Temp Pulse Resp BP Pulse Ox 97 F L 72 16 142/68 H 100 09/13/21 02:56 09/13/21 02:56 09/13/21 02:56 09/13/21 02:56 09/13/21 02:56 Oxygen Flow Rate (L/min) 2 Oxygen Delivery Method Room Air Weight: 87.3 kg Body Mass Index (BMI) 35.4 Intake & Output: Intake and Output for Last 24 Hours 09/11/21 09/12/21 09/13/21 23:59 23:59 23:59 Intake Total 518.18 / 518.18 250 / 250 Output Total 2500 / 2850 750 / 750 Balance -1981.82 / -2331.82 -500 / -500 Lab / Micro Data Attestation: I reviewed the patient's lab results. Result Diagrams: 09/13/21 05:05 09/13/21 05:05 Labs: Laboratory Results - last 24 hr 09/12/21 11:40: POC Glucose 263 H 09/12/21 16:31: POC Glucose 208 H 09/12/21 21:36: POC Glucose 249 H 09/13/21 05:05: WBC 7.7, RBC 4.24, Hgb 13.0, Hct 39.1, MCV 92.2, MCH 30.7, MCHC 33.2, RDW Std Deviation 46.0 H, RDW Coeff of Tomi 13.6, Plt Count 214, MPV 10.8, Immature Gran % (Auto) 0.100, Neut % (Auto) 61.0, Lymph % (Auto) 29.4, [place] % (Auto) 8.2, Eos % (Auto) 1.0, Baso % (Auto) 0.3, Absolute Neuts (auto) 4.7, Absolute Lymphs (auto) 2.27, Nucleated RBC % 0 09/13/21 05:05: Sodium 136, Potassium 3.6, Chloride 103, Carbon Dioxide 25.0, Anion Gap 8, BUN 48 H, Creatinine 1.18 H, Estim Creat Clear Calc 48.71, Est GFR (MDRD) Af Amer 62, Est GFR (MDRD) Non-Af 51 L, BUN/Creatinine Ratio 40.7 H, Glucose 159 H, Calcium 9.0, Total Bilirubin 0.70, AST 14 L, ALT 20, Alkaline Phosphatase 60, Total Protein 7.5, Albumin 3.4, Globulin 4.1, Albumin/Globulin Ratio 0.8 L Micro: Microbiology 09/08/21 21:23 Blood Culture (Wb) - Anticubital Right Blood Culture - Preliminary No growth in 48 hours. 09/08/21 20:26 Blood Culture (Wb) - Arm Right Blood Culture - Preliminary No growth in 48 hours. 09/08/21 21:20 Sputum, Tracheal Aspirate Gram Stain - Final 09/08/21 21:20 Sputum, Tracheal Aspirate Respiratory Culture - Final Mixed normal respiratory raul. No Streptococcus pneumoniae, beta-hemolytic Streptococcus or Staphylococcus aureus isolated. Rhythm Strip Rhythm Strip: Tachycardia Rate: 140 Physical Exam Const alert, oriented x3 and no apparent distress General Appearance: cooperative Nutritional Appearance: obese HEENT normocephalic and head/scalp atraumatic Eyes PERRL, EOMs intact bilaterally and conjunctivae normal Neck supple General: trachea midline Chest inspection of chest normal Resp Auscultation: diminished lung sounds; Negative for rales, rhonchi or wheezes Cardio regular rate and regular rhythm GI normal to inspection, nondistended, normoactive bowel sounds Extremity no clubbing, cyanosis or edema Skin no rashes or lesions noted Neuro CN's II-XII intact bilaterally, moves all extremities and no focal motor deficits Psych cooperative and affect normal Charges/Coding Visit Charges Inpatient E&M: 77393 Subs Hosp L2
[2021-09-13 07:20] LABS: Bedside Glucose 159 mg/dL (74-106)
[2021-09-13] MEDS: Lisinopril 20 MG Tablet PO (08:03)
[2021-09-13] MEDS: Carvedilol 6.25 MG Tablet PO ×2 (08:03→16:25)
[2021-09-13] MEDS: Clopidogrel Bisulfate 75 MG Tablet PO (08:03)
[2021-09-13] MEDS: Furosemide 40 MG/4 ML Vial IV ×2 (08:04→18:00)
[2021-09-13] MEDS: Enoxaparin 100 MG/ML Syringe 90 MG SC ×2 (08:04→21:24)
[2021-09-13] MEDS: Aspirin 81 MG TAB.CHEW PO (08:04)
[2021-09-13] MEDS: Morphine 2 MG/ML Syringe IV ×2 (08:10→17:58)
[2021-09-13] MEDS: Famotidine 200 MG/20 ML MDV 20 MG in 0.9% Normal Saline (Pres. free 8 ML 300 MG IV ×2 (10:03→21:25)
[2021-09-13 11:36] LABS: Bedside Glucose 395 mg/dL (74-106)
[2021-09-13] MEDS: Ketorolac 30 MG/ML Syringe IV (11:37)
[2021-09-13] MEDS: Insulin Lispro 100 UNIT/ML INSULN.PEN SC ×3 (11:39→21:22)
--- NOTE | 2021-09-13 13:45 | PCM.PN.CARD ---
Subjective Subjective No events noted from last night Patient seen and evaluated bedside Sitting out in a chair comfortable not in acute distress. Objective Data Vital Signs: Vital Signs Temp Pulse Resp BP Pulse Ox 97.1 F L 71 18 88/49 L 96 09/13/21 13:23 09/13/21 13:23 09/13/21 13:23 09/13/21 13:23 09/13/21 13:23 Oxygen Flow Rate (L/min) 2 Oxygen Delivery Method Room Air Weight: 192 lb 7.417 oz Body Mass Index (BMI) 35.4 Intake & Output: Intake and Output for Last 24 Hours 09/11/21 09/12/21 09/13/21 23:59 23:59 23:59 Intake Total 518.18 / 518.18 250 / 250 490 / 490 Output Total 2500 / 2850 750 / 750 Balance -1981.82 / -2331.82 -500 / -500 490 / 490 Lab / Micro Data Result Diagrams: 09/13/21 05:05 09/13/21 05:05 Labs: Laboratory Results - last 24 hr 09/12/21 16:31: POC Glucose 208 H 09/12/21 21:36: POC Glucose 249 H 09/13/21 05:05: WBC 7.7, RBC 4.24, Hgb 13.0, Hct 39.1, MCV 92.2, MCH 30.7, MCHC 33.2, RDW Std Deviation 46.0 H, RDW Coeff of Tomi 13.6, Plt Count 214, MPV 10.8, Immature Gran % (Auto) 0.100, Neut % (Auto) 61.0, Lymph % (Auto) 29.4, [place] % (Auto) 8.2, Eos % (Auto) 1.0, Baso % (Auto) 0.3, Absolute Neuts (auto) 4.7, Absolute Lymphs (auto) 2.27, Nucleated RBC % 0 09/13/21 05:05: Sodium 136, Potassium 3.6, Chloride 103, Carbon Dioxide 25.0, Anion Gap 8, BUN 48 H, Creatinine 1.18 H, Estim Creat Clear Calc 48.71, Est GFR (MDRD) Af Amer 62, Est GFR (MDRD) Non-Af 51 L, BUN/Creatinine Ratio 40.7 H, Glucose 159 H, Calcium 9.0, Total Bilirubin 0.70, AST 14 L, ALT 20, Alkaline Phosphatase 60, Total Protein 7.5, Albumin 3.4, Globulin 4.1, Albumin/Globulin Ratio 0.8 L 09/13/21 07:01: POC Glucose 159 H 09/13/21 11:33: POC Glucose 395 H Rhythm Strip Rhythm Strip: Tachycardia Rate: 140 Cardiology Labs/Tests 09/13/21 05:05: WBC 7.7, RBC 4.24, Hgb 13.0, Hct 39.1, MCV 92.2, MCH 30.7, MCHC 33.2, Plt Count 214, MPV 10.8, Immature Gran % (Auto) 0.100, Neut % (Auto) 61.0, Lymph % (Auto) 29.4, [place] % (Auto) 8.2, Eos % (Auto) 1.0, Baso % (Auto) 0.3, Absolute Neuts (auto) 4.7, Nucleated RBC % 0 09/13/21 05:05: Sodium 136, Potassium 3.6, Chloride 103, Carbon Dioxide 25.0, Anion Gap 8, BUN 48 H, Creatinine 1.18 H, Est GFR (MDRD) Af Amer 62, Est GFR (MDRD) Non-Af 51 L, BUN/Creatinine Ratio 40.7 H, Glucose 159 H, Calcium 9.0, Total Bilirubin 0.70 Rhythm: Normal sinus rhythm Physical Exam Narrative Patient alert orientated Review of the cardiac rehabilitation specialist showed normal sinus Cardiovascular exam S1-S2 regular, no murmur no systolic or diastolic murmur Chest exam minimal bilateral basilar rales. Assessment & Plan Assessment/Plan (1) History of coronary artery stent placement: (2) Cardiomyopathy, ischemic: (3) HFrEF (heart failure with reduced ejection fraction): (4) Left bundle branch block (LBBB): (5) Benign hypertension: (6) Hyperlipidemia: (7) Type 2 diabetes mellitus: (8) Non-ST elevation (NSTEMI) myocardial infarction: PLAN: No further episode of chest discomfort night monitor showed underlying normal sinus Cardiac care plan and recommendations; 1. This patient with history of ischemic cardiomyopathy and PCI and stent of the LAD On this presentation patient has elevated cardiac biomarker/high sensitive troponin 2. I reviewed the current medication will continue current medical treatment 3. Patient is scheduled to undergo cardiac catheterization by primary cottage master Dr. Ho, in a.m I explained cardiac cath procedure, risk and benefit to the patient and All questions answered and patient will be kept n.p.o. from midnight..
--- NOTE | 2021-09-13 14:44 | PCM.PN.HOSP ---
Subjective Subjective Patient was seen and examined today, she complains of severe sore throat with hoarseness, I have elected to give her 1 dose of methylprednisolone IV and 1 dose of Toradol to see if this would help with her throat discomfort. I told her basically the I could offer her no treatment that would help, I encouraged her to keep using benzocaine lozenges. Patient's creatinine is slightly elevated today, I have decided to place the patient on IV fluid at 75 cc an hour, she is to have a cardiac catheterization tomorrow. Objective Data Objective Data Vital Signs: Vital Signs Temp Pulse Resp BP Pulse Ox 97.1 F L 71 18 88/49 L 96 09/13/21 13:23 09/13/21 13:23 09/13/21 13:23 09/13/21 13:23 09/13/21 13:23 Oxygen Flow Rate (L/min) 2 Oxygen Delivery Method Room Air Weight: 87.3 kg Body Mass Index (BMI) 35.4 Intake & Output: Intake and Output for Last 24 Hours 09/11/21 09/12/21 09/13/21 23:59 23:59 23:59 Intake Total 518.18 / 518.18 250 / 250 490 / 490 Output Total 2500 / 2850 750 / 750 Balance -1981.82 / -2331.82 -500 / -500 490 / 490 Lab / Micro Data Result Diagrams: 09/13/21 05:05 09/13/21 05:05 Labs: Laboratory Results - last 24 hr 09/12/21 16:31: POC Glucose 208 H 09/12/21 21:36: POC Glucose 249 H 09/13/21 05:05: WBC 7.7, RBC 4.24, Hgb 13.0, Hct 39.1, MCV 92.2, MCH 30.7, MCHC 33.2, RDW Std Deviation 46.0 H, RDW Coeff of Tomi 13.6, Plt Count 214, MPV 10.8, Immature Gran % (Auto) 0.100, Neut % (Auto) 61.0, Lymph % (Auto) 29.4, [place] % (Auto) 8.2, Eos % (Auto) 1.0, Baso % (Auto) 0.3, Absolute Neuts (auto) 4.7, Absolute Lymphs (auto) 2.27, Nucleated RBC % 0 09/13/21 05:05: Sodium 136, Potassium 3.6, Chloride 103, Carbon Dioxide 25.0, Anion Gap 8, BUN 48 H, Creatinine 1.18 H, Estim Creat Clear Calc 48.71, Est GFR (MDRD) Af Amer 62, Est GFR (MDRD) Non-Af 51 L, BUN/Creatinine Ratio 40.7 H, Glucose 159 H, Calcium 9.0, Total Bilirubin 0.70, AST 14 L, ALT 20, Alkaline Phosphatase 60, Total Protein 7.5, Albumin 3.4, Globulin 4.1, Albumin/Globulin Ratio 0.8 L 09/13/21 07:01: POC Glucose 159 H 09/13/21 11:33: POC Glucose 395 H Micro: Microbiology 09/08/21 21:23 Blood Culture (Wb) - Anticubital Right Blood Culture - Preliminary No growth in 48 hours. 09/08/21 20:26 Blood Culture (Wb) - Arm Right Blood Culture - Preliminary No growth in 48 hours. 09/08/21 21:20 Sputum, Tracheal Aspirate Gram Stain - Final 09/08/21 21:20 Sputum, Tracheal Aspirate Respiratory Culture - Final Mixed normal respiratory raul. No Streptococcus pneumoniae, beta-hemolytic Streptococcus or Staphylococcus aureus isolated. Rhythm Strip Rhythm Strip: Tachycardia Rate: 140 Physical Exam Const alert, oriented x3, no apparent distress and healthy appearing Constitutional Narrative: Patient is hoarse and can barely speak General Appearance: cooperative, well kempt and well developed Orientation / Consciousness: awake, oriented to person, oriented to place and oriented to time HEENT normocephalic, head/scalp atraumatic and moist oral mucous membranes Eyes PERRL, EOMs intact bilaterally and conjunctivae normal Neck nuchal rigidity, supple, no JVD and thyroid normal General: trachea midline Resp normal respiratory effort, normal air movement, no retractions, no use of accessory muscles and clear to auscultation bilaterally Auscultation: Negative for rales, rhonchi or wheezes Cardio regular rate, regular rhythm, S1 normal heart sound, S2 normal heart sound, no murmurs, no rub and no gallops GI normal to inspection, nondistended, normoactive bowel sounds, soft to palpation, non-tender and non-distended Extremity no clubbing, cyanosis or edema Skin no rashes or lesions noted General Skin Exam: no breakdown Neuro oriented x3, CN's II-XII intact bilaterally, no focal motor deficits and no sensory deficits noted Sensorium / Orientation: awake and alert Speech: speech normal Psych affect normal Assessment & Plan Assessment/Plan (1) Non-ST elevation (NSTEMI) myocardial infarction: PLAN: 1. Acute rwq-WZGHY-ljopvzhmse is participating in her care, she is likely to undergo cardiac catheterization tomorrow, I will place the patient on low-flow IV fluid due to increased creatinine today and due to her throat discomfort. #2 acute hypoxic respiratory failure secondary to pulmonary edema-pulmonary medicine is participating in her care, patient is currently on room air #3 acute pulmonary edema-possibly secondary to acute non-STEMI with reduced EF, cardiology is participating in her care, IV Lasix will be continued, patient's echocardiogram performed showed an EF of 30% #4 acute systolic congestive heart failure-cardiology is participating in her care, cardiac medications will be adjusted by cardiology #5 nonischemic cardiomyopathy-again, cardiology was participating in her care #6 essential hypertension-patient is currently on Zestril #7 type 2 diabetes-blood sugars will be monitored, sliding scale insulin will be employed #8 oropharyngeal dysphagia-possibly secondary to intubation, patient is being seen by speech therapy, patient remains on her present diet Charges/Coding Visit Charges Inpatient E&M: 61516 Subs Hosp L2
[2021-09-13] MEDS: 0.9% Normal Saline 1,000 ML 75 ML IV (15:11)
[2021-09-13 16:36] LABS: Bedside Glucose 368 mg/dL (74-106)
[2021-09-13] MEDS: Atorvastatin Calcium 80 MG Tablet PO (21:24)
[2021-09-13] MEDS: traMADol 50 MG Tablet PO (23:38)
[2021-09-14] VITALS (13 sets, daily range): BP systolic 107–157; BP diastolic 61–100; PULSE 63–101; RESP 18–20; TEMP 36.3–36.6; O2SAT 94–100
[2021-09-14 00:01] LABS: Bedside Glucose 398 mg/dL (74-106)
[2021-09-14] MEDS: 0.9% Normal Saline 1,000 ML 75 ML IV (02:57)
[2021-09-14 05:34] LABS: Absolute Lymphocyte Count 1.79 X10^3/uL (0.83-4.51); Absolute Neutrophil Count 6.7 X10^3/uL (2.0-7.7); Basophil# 0.01 X10^3/uL; Basophil% 0.1 % (0-1); Eosinophil# 0.02 X10^3/uL; Eosinophils% 0.2 % (0-5); Hematocrit 36.8 % (37-47); Hemoglobin 12.4 g/dL (12.0-15.0); Lymphocyte # 1.79 X10^3/ul (0.83-4.51); Lymphocyte % 19.7 % (19-41); Mean Corp Hgb Conc 33.7 g/dL (32-36); Mean Corpuscular Hgb 30.4 pg (27.0-32.0); Mean Corpuscular Volume 90.2 fL (81-99); Mean Platelet Vol. 10.6 fl (6.2-12.0); Monocyte# 0.59 X10^3/uL; Monocyte% 6.5 % (0-10); NRBC Flagged by Analyzer 0 % (0-5); Neutrophil # 6.65 X10^3/uL (2.7-7.7); Neutrophil % 73.2 % (47-70); Platelet Count 222 K/mm3 (150-450); Red Blood Count 4.08 M/mm3 (4.2-5.4); White Blood Count 9.1 K/mm3 (4.4-11.0)
[2021-09-14] MEDS: traMADol 50 MG Tablet PO (05:49)
[2021-09-14 05:53] LABS: ALB/GLOB Ratio 0.8 RATIO (0.9-2.4); AST(SGOT) 11 U/L (15-37); Alanine Aminotransfer ALT/SGPT 19 U/L (13-56); Albumin, Serum 3.2 g/dL (3.2-5.0); Alkaline Phosphatase 56 U/L (45-117); Anion Gap 6 (5-15); BUN 37 mg/dL (7-18); BUN/Creat Ratio 40.4 RATIO (10-20); Calcium,Total 8.8 mg/dL (8.5-10.1); Chloride 107 mmol/L (98-107); Creatinine, Serum 0.92 mg/dL (0.55-1.02); EST Glomerular Filtration Rate 69 mL/min (>60); Est Glom Filt Rate - Afr Amer 83 mL/min (>60); Estimated Creatinine Clearance 62.47 ml/min; Globulin 3.8 g/dL (2.2-4.2); Glucose 154 mg/dL (74-106); Potassium 3.9 mmol/L (3.5-5.1); Sodium Level 137 mmol/L (136-145)
--- NOTE | 2021-09-14 05:55 | EKG12_ITS ---
Test Reason : AM EKG Blood Pressure : / mmHG Vent. Rate : 065 BPM Atrial Rate : 065 BPM P-R Int : 206 ms QRS Dur : 164 ms QT Int : 468 ms P-R-T Axes : 050 -12 046 degrees QTc Int : 486 ms Sinus rhythm with Premature supraventricular complexes Left bundle branch block Abnormal ECG When compared with ECG of 09-SEP-2021 05:37, MANUAL COMPARISON REQUIRED, DATA IS UNCONFIRMED Confirmed by SAM GEE, PARAS ([id number]), sound editor JAYLIN FRANK ([id number]) on 09/18/2021 1:11:48 PM Referred By: Confirmed By:DEJUAN VARGAS MD
[2021-09-14] MEDS: Aspirin 81 MG TAB.CHEW PO (05:58)
[2021-09-14] MEDS: Lisinopril 20 MG Tablet PO (05:59)
[2021-09-14] MEDS: Carvedilol 6.25 MG Tablet PO (05:59)
[2021-09-14] MEDS: Clopidogrel Bisulfate 75 MG Tablet PO (05:59)
[2021-09-14 06:51] LABS: Bedside Glucose 157 mg/dL (74-106)
--- NOTE | 2021-09-14 09:33 | NURSING ---
Report given to Cloth Bleaching Range Operator Chief nurse Magy KRISHNAN
--- NOTE | 2021-09-14 10:06 | PCM.PN.CARD ---
Subjective Subjective Patient seen and evaluated. Underwent cardiac catheterization today. Objective Data Vital Signs: Vital Signs Temp Pulse Resp BP Pulse Ox 97.3 F L 69 18 147/78 H 94 09/14/21 05:54 09/14/21 07:01 09/14/21 05:54 09/14/21 05:54 09/14/21 07:27 Oxygen Flow Rate (L/min) 2 Oxygen Delivery Method Room Air Weight: 195 lb 8.8 oz Body Mass Index (BMI) 35.4 Intake & Output: Intake and Output for Last 24 Hours 09/12/21 09/13/21 09/14/21 23:59 23:59 23:59 Intake Total 250 / 250 1020 / 1020 882.5 / 882.5 Output Total 750 / 750 Balance -500 / -500 1020 / 1020 882.5 / 882.5 Lab / Micro Data Result Diagrams: 09/14/21 05:16 09/14/21 05:16 Labs: Laboratory Results - last 24 hr 09/13/21 11:33: POC Glucose 395 H 09/13/21 16:23: POC Glucose 368 H 09/13/21 21:20: POC Glucose 398 H 09/14/21 05:16: WBC 9.1, RBC 4.08 L, Hgb 12.4, Hct 36.8 L, MCV 90.2, MCH 30.4, MCHC 33.7, RDW Std Deviation 43.0, RDW Coeff of Tomi 13.0, Plt Count 222, MPV 10.6, Immature Gran % (Auto) 0.300, Neut % (Auto) 73.2 H, Lymph % (Auto) 19.7, [place] % (Auto) 6.5, Eos % (Auto) 0.2, Baso % (Auto) 0.1, Absolute Neuts (auto) 6.7, Absolute Lymphs (auto) 1.79, Nucleated RBC % 0 09/14/21 05:16: Sodium 137, Potassium 3.9, Chloride 107, Carbon Dioxide 24.0, Anion Gap 6, BUN 37 H, Creatinine 0.92, Estim Creat Clear Calc 62.47, Est GFR (MDRD) Af Amer 83, Est GFR (MDRD) Non-Af 69, BUN/Creatinine Ratio 40.4 H, Glucose 154 H, Calcium 8.8, Total Bilirubin 0.50, AST 11 L, ALT 19, Alkaline Phosphatase 56, Total Protein 7.0, Albumin 3.2, Globulin 3.8, Albumin/Globulin Ratio 0.8 L 09/14/21 05:52: POC Glucose 157 H Micro: Microbiology 09/08/21 21:23 Blood Culture (Wb) - Anticubital Right Blood Culture - Final No growth in 5 days. 09/08/21 20:26 Blood Culture (Wb) - Arm Right Blood Culture - Final No growth in 5 days. Rhythm Strip Rhythm Strip: Tachycardia Rate: 140 Cardiology Labs/Tests 09/14/21 05:16: WBC 9.1, RBC 4.08 L, Hgb 12.4, Hct 36.8 L, MCV 90.2, MCH 30.4, MCHC 33.7, Plt Count 222, MPV 10.6, Immature Gran % (Auto) 0.300, Neut % (Auto) 73.2 H, Lymph % (Auto) 19.7, [place] % (Auto) 6.5, Eos % (Auto) 0.2, Baso % (Auto) 0.1, Absolute Neuts (auto) 6.7, Nucleated RBC % 0 09/14/21 05:16: Sodium 137, Potassium 3.9, Chloride 107, Carbon Dioxide 24.0, Anion Gap 6, BUN 37 H, Creatinine 0.92, Est GFR (MDRD) Af Amer 83, Est GFR (MDRD) Non-Af 69, BUN/Creatinine Ratio 40.4 H, Glucose 154 H, Calcium 8.8, Total Bilirubin 0.50 Rhythm: EKG: ECHO: Stress Test: Cardiac Cath: PCI: CT Surgery: Holter monitor: EPS: PPM: CXR: Chest CT Scan: Assessment & Plan Assessment/Plan (1) History of coronary artery stent placement: PLAN: She underwent cardiac catheterization today and it demonstrates patency of the previously placed stents. No changes will be made. The cardiac enzyme elevation was likely secondary to demand ischemia. (2) Cardiomyopathy, ischemic: PLAN: She does have a history of cardiomyopathy which is out of proportion to the coronary disease. At this time I would recommend we continue with the current medical therapy with a beta-timothy, MERRILL inhibitor and diuretic. If after titrating to maximum tolerated guideline directed medical therapy her ejection fraction is still 35% or less I would recommend primary defibrillator placement. She may need a INTERVENTIONAL RADIOLOGY TECHNOLOGIST-D device (3) HFrEF (heart failure with reduced ejection fraction): PLAN: She does have a history of heart failure with reduced ejection fraction. The exact precipitating event for this 1 is not clear to me. I would recommend that we continue with the current medical therapy. At some point she may be a candidate for an SGLT 1 inhibitor (4) Left bundle branch block (LBBB): PLAN: She does have a left bundle branch block which will continue to be monitored (5) Benign hypertension: PLAN: Her blood pressure appears to be under good control we will continue carvedilol at the current dose together with the losartan. (6) Hyperlipidemia: PLAN: She will continue with aggressive risk factor modification.
--- NOTE | 2021-09-14 10:18 | CL.D_ITS ---
Patient Name: PITO CLARK Study Date: 09/14/2021 Performing: Cr Ho MD Ht: 64.17 inches 163 cm : 1970 Wt: 196.21 lbs 89 kg Age: 50 Gender: female BSA: 1.94 PROCEDURE(S) PERFORMED DC01-([id number])LHC/COR/LV CLINICAL PROFILE AND INDICATIONS Indications: Cardiomyopathy Heart Failure: NYHA Class: 3, Newly Diagnosed: Yes, Heart Failure Type: Systolic Stress/Imaging Stress/Image Study Performed: No CONCLUSIONS Previously placed stent in the left anterior descending artery is patent with mild disease noted in t he LAD, circumflex artery, and right coronary artery. Moderately severe left ventricular systolic dy sfunction is noted with 2-3+ mitral regurgitation. RECOMMENDATIONS Guideline directed medical therapy, titrate carvedilol, ARB and consider adding SGLT inhibitor togeth er with diuretic. May eventually need to consider a OUTPATIENT ADMITTING CLERK-D device DESCRIPTION OF PROCEDURE The patient arrived to the procedure lab. The risks and benefits of the procedure as well as a full d escription of our services here and current unavailability of surgical backup were fully explained to the patient and/or their significant other prior to the catheterization. The Timeout was completed, verifying the correct patient and procedure. The patient's procedural site was prepped and draped in the usual fashion. Local anesthetic was given subcutaneously to right radial region with Lidocaine 2% . Local anesthetic was given subcutaneously to right groin region with Lidocaine 2%. Using a modified Seldinger technique, arterial access was obtained via the right radial artery, a 6Fr sheath was inse rted., arterial access was obtained via the right femoral artery, a 5Fr sheath was inserted. Left Co ronary Artery selective angiography was performed in multiple views using a 5 Fr. JL4 catheter. Right Coronary Artery selective angiography was then performed in multiple views using a 5 Fr. 3DRC (Scott) catheter. Left Ventriculography was performed in SMALL projection using a 5 Fr. Pigtail catheter. LV to AO pullback pressures were then recorded.Contrast was injected through the sheath an d the Right Iliac and Femoral artery were assessed for possible closure device.The arterial sheath wa s pulled and a Mynx closure device was deployed for hemostasis. The arterial sheath was pulled and a TR Band was applied for hemostasis 16cc air CORONARY ANGIOGRAPHY DOMINANCE: Right Dominant LEFT HEART ASSESSMENT Left Ventricular Ejection Fraction: by LV Gram 30 % Global Hypokinesis - Moderate Depressed Left Ventricular systolic function LEFT MAIN: Angiographically normal LEFT ANTERIOR DESCENDING ARTERY: PROX LAD: Previously placed stent is patent CIRCUMFLEX ARTERY: No significant disease noted RIGHT CORONARY ARTERY: Mild luminal irregularities less than 30% VALVE FINDINGS: Mitral Valve Insufficiency - Grade 3 COMPLICATIONS No Complications PROCEDURE MEDICATIONS Versed 1 mg IV Fentanyl 50 mcg IV Fentanyl 50 mcg IV Heparin given IA 09/14/2021 09:38:28 Verapamil 2.5mg, Ntg 100mcgs, 3000 units of Heparin given IA 09/14/2021 09:38:28 SUMMARY OF HEMODYNAMIC DATA Time AIR REST ECG 09:10:19 AO 116/60 (81) SA 09:37:04 AO 105/53 (75) 09:48:05 AO 111/58 (78) 09:48:28 LV 120/0, 2 09:53:50 LV 105/0, 13 09:53:57 LV 111/5, 11 09:54:44 LV 114/5, 12 09:54:51 LVp 116/5, 15 09:54:58 AOp 119/49 (74) 09:55:03 RM AIR REST 10:14:55 Signed By Cr Ho MD On 09/14/2021 10:17:44 AM Cr Ho MD
--- NOTE | 2021-09-14 11:05 | CASEMGMT ---
This RN CM to room to discuss d/c plan and pt states no need for any further therapy at discharge and states no further questions/concerns/needs with going home. Pt has been on room air for last several days and per Dr. Staples, no need to test for home oxygen. SStaten ARIELLA CM
[2021-09-14] MEDS: Famotidine 200 MG/20 ML MDV 20 MG in 0.9% Normal Saline (Pres. free 8 ML 300 MG IV (11:46)
--- NOTE | 2021-09-14 11:48 | PCM.DC ---
Discharge Instructions Diet Discharge Diet: 1800 Calorie Control Diet Activity Discharge Activity: Return to Normal Activity Return to work on:: 09/28/21 Weight Bearing Status: Full weight bearing Follow Up Care Test Results: Test results from this visit will be discussed in further detail at your follow-up appointment, if applicable. Discharge Plan Admission Admit Date/Time: 09/08/21 20:54 Primary Reason for Your Visit: congestive heart failure Attending Provider: Aidan Staples Primary Care Provider: Margo Tatum Consulting Providers: Gustavo Leslie ; Herminio Magana Discharge Orders/Prescriptions Prescriptions: New Cepacol Sore Throat (brian-men) 15-3.6 mg Lozenge 1 nigel mucous membrane Q2H PRN PRN (Reason: SORE THROAT) Qty: 0 RF: 0 Jardiance 10 mg Tablet 10 mg PO DAILY Qty: 30 RF: 0 furosemide 40 mg Tablet 40 mg PO BIDLX Qty: 60 RF: 0 tramadol 50 mg Tablet 50 mg PO TID PRN PRN (Reason: Pain Score 1-10) Qty: 30 RF: 0 cefdinir 300 mg capsule 300 mg PO BID Qty: 14 RF: 0 potassium chloride 10 mEq tablet extended release 20 meq PO DAILY Qty: 60 RF: 0 Continued glipizide 10 mg tablet extended release 24hr 10 mg PO BID RF: 0 clopidogrel [Plavix] 75 mg tablet 75 mg PO DAILY Qty: 90 RF: 3 tramadol 50 mg tablet 50 mg PO TID PRN (Reason: Pain) RF: 0 omeprazole 20 MG capsule 20 mg PO DAILY Qty: 30 RF: 0 tizanidine 4 MG tablet 4 mg PO QHS RF: 0 aspirin 81 mg capsule 81 mg PO DAILY Qty: 60 RF: 3 hydroxyzine HCl 25 mg tablet 25 mg PO TID PRN (Reason: anxiety) Qty: 20 RF: 0 promethazine 25 mg tablet 25 mg PO TID PRN (Reason: nausea and vomiting) Qty: 21 RF: 0 isosorbide mononitrate 30 mg tablet extended release 24 hr 30 mg PO DAILY Qty: 90 RF: 3 Hold Instructions: Resume on 07/22/21. carvedilol 6.25 mg tablet 6.25 mg PO BID Qty: 180 RF: 3 Hold Instructions: Resume on 07/22/21. lisinopril 20 mg tablet 20 mg PO DAILY Qty: 90 RF: 3 Hold Instructions: Resume on 07/22/21. atorvastatin 80 mg tablet 80 mg PO QHS Qty: 90 RF: 3 Discontinued sucralfate 1 gram tablet 1 g PO 4X/DAY PRN (Reason: Constipation) RF: 0 furosemide 40 mg tablet 40 mg PO DAILY Qty: 90 RF: 3 Hold Instructions: Resume on 07/21/21. potassium chloride 20 mEq tablet,ER particles/crystals 20 meq PO DAILY Qty: 90 RF: 3 Hold Instructions: Resume on 07/21/21. Referrals / Follow Up: Cr Ho MD [STAFF PHYSICIAN] - 10/15/21 1:45 pm Margo Tatum DO [Primary Care Provider] - Within 2 Weeks Disposition Disposition (needs filled in before D/C Order can be placed): Home, Self Care
[2021-09-14] MEDS: Furosemide 40 MG Tablet PO (11:54)
[2021-09-14 11:55] LABS: Bedside Glucose 120 mg/dL (74-106)
[2021-09-14] MEDS: Morphine 2 MG/ML Syringe IV (12:22)
--- NOTE | 2021-09-14 14:52 | NURSING ---
Reviewed charting with Maira Baird RN
--- NOTE | 2021-09-14 14:53 | NURSING ---
Pt walked in [place] with this nurse. Groin puncture site clean and intact. No hematoma formed.
--- NOTE | 2021-09-14 18:40 | DS.PCM_ITS ---
Providers Date of Admission: 09/08/21 Date of Discharge: 09/14/21 Primary Care Physician: Dr. Margo Tatum, Consultations 09/08/21 23:49 Consult: Cardiology Routine Consulting Provider: Gustavo Leslie Reason for Consult: CHF exac, resp failure, intubated. EMERGENT Consult: No MD Notified: Yes Date Notified: 09/09/21 Time Notified: 06:30 Method of Notification: Text Consult: Medical Registrar / Pulmonary Medicine Routine Consulting Provider: Herminio Magana Reason for Consult: Resp failure, intubated, CHF exac/Flash pulmonary edema. EMERGENT Consult: No Notified: Yes Date Notified: 09/08/21 Time Notified: 20:58 Method of Notification: Text Reason For Visit: RESPIRATORY FAILURE, CHF EXACERBATION, FLASH PUL Diagnosis Discharge Diagnosis (1) History of coronary artery stent placement: Status: Acute Code(s): Z95.5 - Presence of coronary angioplasty implant and graft (2) Cardiomyopathy, ischemic: Status: Acute Code(s): I25.5 - Ischemic cardiomyopathy (3) HFrEF (heart failure with reduced ejection fraction): Status: Chronic Code(s): I50.20 - Unspecified systolic (congestive) heart failure (4) Left bundle branch block (LBBB): Status: Chronic Code(s): I44.7 - Left bundle-branch block, unspecified (5) Benign hypertension: Status: Chronic Code(s): I10 - Essential (primary) hypertension (6) Hyperlipidemia: Status: Chronic Code(s): E78.5 - Hyperlipidemia, unspecified Plan: 1. Acute ecv-HFBAD-drym II #2 acute hypoxic respiratory failure secondary to pulmonary edema from type II non-STEMI #3 acute pulmonary edema from type II non-STEMI #4 acute systolic congestive heart failure #5 nonischemic cardiomyopathy #6 essential hypertension #7 type 2 diabetes #8 oropharyngeal dysphagia-possibly secondary to intubation #9 nonocclusive coronary artery disease #10 acute kidney injury Ischemic cardiomyopathy was ruled out Medications at Discharge Home Medications omeprazole 20 mg PO DAILY #30 cap 12/01/18 tizanidine 4 mg PO QHS 06/12/20 glipizide 10 mg tablet, extended release 24 hr 10 mg PO BID tab 07/11/20 tramadol 50 mg tablet 50 mg PO TID PRN tab 07/11/20 aspirin 81 mg PO DAILY #60 cap 05/20/21 hydroxyzine HCl 25 mg PO TID PRN #20 tab 06/07/21 clopidogrel 75 mg tablet 75 mg PO DAILY #90 tab 06/08/21 isosorbide mononitrate 30 mg tablet,extended release 24 hr 30 mg PO DAILY #90 tab 06/29/21 atorvastatin 80 mg tablet 80 mg PO QHS #90 tab 07/06/21 carvedilol 6.25 mg tablet 6.25 mg PO BID #180 tab 07/06/21 lisinopril 20 mg tablet 20 mg PO DAILY #90 tab 07/06/21 promethazine 25 mg PO TID PRN #21 tab 07/19/21 benzocaine-menthol [Cepacol Sore Throat (brian-men)] 1 nigel MUCOUS MEMBRANE Q2H PRN PRN #0 ea 09/14/21 cefdinir 300 mg PO BID #14 cap 09/14/21 empagliflozin [Jardiance] 10 mg PO DAILY #30 tab 09/14/21 furosemide 40 mg PO BIDLX #60 tab 09/14/21 potassium chloride 20 meq PO DAILY #60 tab 09/14/21 tramadol 50 mg PO TID PRN PRN #30 tab 09/14/21 Hospital Course Operations None Procedures 2-D Echocardiogram and Cardiac catheterization Summary of Care Provided Minutes Spent on Discharge: 32 Hospital Course: This 50-year-old white female was brought into the emergency room at [facility] for evaluation after having severe respiratory distress at home suddenly, she was emergently intubated in the emergency room, chest x-ray showed evidence of pulmonary edema, EKG showed no evidence of an acute ischemic event. Patient had labs performed which showed an elevated white blood cell count of 14.7, urinalysis showed 10-25 RBCs, 0-5 WBCs, and +1 bacteria, chemistry panel showed a glucose of 468, creatinine was 1.46, lactic acid was 7.6, beta natruretic peptide was 618, troponin was normal. Patient was admitted to the ICU, she was seen in consultation by cardiology and critical care, echocardiogram was performed which showed reduced ejection fraction of 30%, patient was placed on IV Lasix, subsequent troponins elevated and the patient was felt to have a non-STEMI. Patient's medical status stabilized, she was extubated and complained of hoarseness, she was seen by speech therapy who felt she had an element of oropharyngeal dysphagia and modified her diet. It was felt that this was probably secondary to her intubation. On 09/14/2021, patient underwent a cardiac catheterization which showed no evidence of obstructive coronary artery disease, it was felt that the patient could be medically treated for her heart disease. On 09/14/2021, patient was seen and examined: On examination she appeared in good health and spirits, she does not appear to be in any distress. Vital signs as documented. Skin warm and dry and without overt rashes. Neck without JVD, thyroid appears normal, trachea is midline, neck is supple. Lungs clear, normal air movement was noted. Heart exam notable for regular rhythm, normal sounds and absence of murmurs, rubs or gallops. Abdomen unremarkable and without evidence of organomegaly, masses, or abdominal aortic enlargement, bowel sounds are present in all 4 quadrants, no abdominal tenderness was noted. Extremities nonedematous, no cyanosis was noted, no clubbing was noted. Neuro: Cranial nerves II through XII are grossly intact, no focal motor deficits were noted, sensation to light touch and pinprick is intact, motor exam 5/5 throughout. Psych: Patient is alert and oriented x3, she does not appear anxious or depressed, she does not appear agitated. On 09/14/2021, patient was seen and examined and felt to be stable for discharge home. I placed the patient on 7 days of oral antibiotics for possible sinusitis at the time of discharge, patient was complaining of left ear pain and continued hoarseness and throat discomfort, she was given a prescription for Omnicef to take as an outpatient. Weight / BMI Weight Weight: 88.7 kg Body Mass Index (BMI) 35.4 ABG / Lab / Microbiology Data Result Diagrams: 09/14/21 05:16 09/14/21 05:16 Laboratory: Laboratory Results - last 24 hr 09/13/21 21:20: POC Glucose 398 H 09/14/21 05:16: WBC 9.1, RBC 4.08 L, Hgb 12.4, Hct 36.8 L, MCV 90.2, MCH 30.4, MCHC 33.7, RDW Std Deviation 43.0, RDW Coeff of Tomi 13.0, Plt Count 222, MPV 10.6, Immature Gran % (Auto) 0.300, Neut % (Auto) 73.2 H, Lymph % (Auto) 19.7, Wilkin % (Auto) 6.5, Eos % (Auto) 0.2, Baso % (Auto) 0.1, Absolute Neuts (auto) 6.7, Absolute Lymphs (auto) 1.79, Nucleated RBC % 0 09/14/21 05:16: Sodium 137, Potassium 3.9, Chloride 107, Carbon Dioxide 24.0, Anion Gap 6, BUN 37 H, Creatinine 0.92, Estim Creat Clear Calc 62.47, Est GFR (MDRD) Af Amer 83, Est GFR (MDRD) Non-Af 69, BUN/Creatinine Ratio 40.4 H, Glucose 154 H, Calcium 8.8, Total Bilirubin 0.50, AST 11 L, ALT 19, Alkaline Phosphatase 56, Total Protein 7.0, Albumin 3.2, Globulin 3.8, Albumin/Globulin Ratio 0.8 L 09/14/21 05:52: POC Glucose 157 H 09/14/21 11:45: POC Glucose 120 H Microbiology: Microbiology 09/08/21 21:23 Blood Culture (Wb) - Anticubital Right Blood Culture - Final No growth in 5 days. 09/08/21 20:26 Blood Culture (Wb) - Arm Right Blood Culture - Final No growth in 5 days. 09/08/21 21:20 Sputum, Tracheal Aspirate Gram Stain - Final 09/08/21 21:20 Sputum, Tracheal Aspirate Respiratory Culture - Final Mixed normal respiratory raul. No Streptococcus pneumoniae, beta-hemolytic Streptococcus or Staphylococcus aureus isolated. D/C Instructions Discharge Diet: 1800 Calorie Control Diet Return to work on: 09/28/21 Weight Bearing Status: Full weight bearing Meaningful Use Info Meaningful Use Diagnoses (Choose all that apply): AMI and CHF AMI/Post PCI/Angioplasty Aspirin given w/in 24hrs of arrival?: Yes ASA at discharge?: Yes Antiplatelet Therapy at Discharge:: Yes Statins at discharge?: Yes Scott/ARB at discharge?: Yes Beta Renee at discharge?: Yes Done w/ Acute NM measure.: Yes Documented LVEF (%): 30 CHF SCOTT/ARB ordered at discharge?: Yes Documented LVEF (%): 30 Discharge Plan Admission Admit Date/Time: 09/08/21 20:54 Primary Reason for Your Visit: congestive heart failure Attending Provider: Aidan Staples Primary Care Provider: Margo Tatum Consulting Providers: Gustavo Leslie ; Herminio Magana Discharge Orders/Prescriptions Prescriptions: New Cepacol Sore Throat (brian-men) 15-3.6 mg Lozenge 1 nigel mucous membrane Q2H PRN PRN (Reason: SORE THROAT) Qty: 0 RF: 0 Jardiance 10 mg Tablet 10 mg PO DAILY Qty: 30 RF: 0 furosemide 40 mg Tablet 40 mg PO BIDLX Qty: 60 RF: 0 tramadol 50 mg Tablet 50 mg PO TID PRN PRN (Reason: Pain Score 1-10) Qty: 30 RF: 0 cefdinir 300 mg capsule 300 mg PO BID Qty: 14 RF: 0 potassium chloride 10 mEq tablet extended release 20 meq PO DAILY Qty: 60 RF: 0 Continued glipizide 10 mg tablet extended release 24hr 10 mg PO BID RF: 0 clopidogrel [Plavix] 75 mg tablet 75 mg PO DAILY Qty: 90 RF: 3 tramadol 50 mg tablet 50 mg PO TID PRN (Reason: Pain) RF: 0 omeprazole 20 MG capsule 20 mg PO DAILY Qty: 30 RF: 0 tizanidine 4 MG tablet 4 mg PO QHS RF: 0 aspirin 81 mg capsule 81 mg PO DAILY Qty: 60 RF: 3 hydroxyzine HCl 25 mg tablet 25 mg PO TID PRN (Reason: anxiety) Qty: 20 RF: 0 promethazine 25 mg tablet 25 mg PO TID PRN (Reason: nausea and vomiting) Qty: 21 RF: 0 isosorbide mononitrate 30 mg tablet extended release 24 hr 30 mg PO DAILY Qty: 90 RF: 3 Hold Instructions: Resume on 07/22/21. carvedilol 6.25 mg tablet 6.25 mg PO BID Qty: 180 RF: 3 Hold Instructions: Resume on 07/22/21. lisinopril 20 mg tablet 20 mg PO DAILY Qty: 90 RF: 3 Hold Instructions: Resume on 07/22/21. atorvastatin 80 mg tablet 80 mg PO QHS Qty: 90 RF: 3 Discontinued sucralfate 1 gram tablet 1 g PO 4X/DAY PRN (Reason: Constipation) RF: 0 furosemide 40 mg tablet 40 mg PO DAILY Qty: 90 RF: 3 Hold Instructions: Resume on 07/21/21. potassium chloride 20 mEq tablet,ER particles/crystals 20 meq PO DAILY Qty: 90 RF: 3 Hold Instructions: Resume on 07/21/21. Referrals / Follow Up: Cr Ho MD [STAFF PHYSICIAN] - 10/15/21 1:45 pm Margo Tatum DO [Primary Care Provider] - Within 2 Weeks Disposition Disposition (needs filled in before D/C Order can be placed): Home, Self Care Charges/Coding Visit Charges Inpatient E&M: 51723 Disch Hosp
== END 2021-09-14 14:46 | disposition home or self-care (01) | DRG 280 ==
LOC: ED 21:08 → ICU 22:57 → PCU 09-12 14:15
PROVIDERS: Nurse Practitioner Family; Admitting Provider Family Medicine; Emergency Provider Emergency Medicine; PCP Family Medicine; Visit Provider Internal Medicine
DX: I21.A1 Myocardial infarction type 2 (principal); J96.01 Acute respiratory failure with hypoxia; I50.23 Acute on chronic systolic (congestive) heart failure; J81.0 Acute pulmonary edema; I42.8 Other cardiomyopathies; N17.9 Acute kidney failure, unspecified; I13.0 Hypertensive heart and chronic kidney disease with heart failure and stage 1 through stage 4 chronic kidney disease, or unspecified chronic kidney disease; E11.22 Type 2 diabetes mellitus with diabetic chronic kidney disease; J44.9 Chronic obstructive pulmonary disease, unspecified; E11.65 Type 2 diabetes mellitus with hyperglycemia; G47.33 Obstructive sleep apnea (adult) (pediatric); I25.10 Atherosclerotic heart disease of native coronary artery without angina pectoris; K21.9 Gastro-esophageal reflux disease without esophagitis; E78.5 Hyperlipidemia, unspecified; I44.7 Left bundle-branch block, unspecified; E78.00 Pure hypercholesterolemia, unspecified; J32.9 Chronic sinusitis, unspecified; I25.2 Old myocardial infarction; G89.4 Chronic pain syndrome; E66.9 Obesity, unspecified; R13.12 Dysphagia, oropharyngeal phase; Z68.36 Body mass index [BMI] 36.0-36.9, adult; Z95.5 Presence of coronary angioplasty implant and graft; Z95.810 Presence of automatic (implantable) cardiac defibrillator; Z79.02 Long term (current) use of antithrombotics/antiplatelets; Z79.82 Long term (current) use of aspirin; Z79.84 Long term (current) use of oral hypoglycemic drugs; Z79.899 Other long term (current) drug therapy; Z86.16 Personal history of COVID-19; Z87.891 Personal history of nicotine dependence
CPT/HCPCS: 31500; 31720; 36415; 36600; 51702; 71045; 71275; 74018; 80048; 80053; 80061; 81001; 82803; 82962; 83605; 83735; 83880; 84484; 85025; 85610; 85730; 87040; 87070; 87205; 92526; 92610; 93005; 93306; 93458; 94002; 94003; 94660; 97110; 97162; 97165; 97530; 97535; 97802; 99152; 99153; 99251; 99285; C1760; J7030; Q9957; Q9967; A4216; C1769; C1894; G0463; J0330; J1940; J2405; J3010; J3490

== ENCOUNTER 2021-09-16 20:44 | Emergency (ER) | payer MEDICARE, MEDICAID, SELFPAY ==
[2021-09-16] VITALS (7 sets, daily range): BP systolic 79–112; BP diastolic 41–59; PULSE 47–67; RESP 17–18; TEMP 36.3; O2SAT 96–98; BMI 36.1
--- NOTE | 2021-09-16 21:24 | CT_ITS ---
STUDY: CT BRAIN WITHOUT CONTRAST REASON FOR EXAM: Female, 50 years old patient with headache after trauma. RADIATION DOSAGE (If Supplied By Facility): CTDIvol = ( 44.99 ) mGy, DLP = ( 796.11 ) mGycm TECHNIQUE: Transaxial CT imaging of the brain was performed without administration of intravenous contrast material. Multiplanar reformations are submitted for interpretation. Individualized dose optimization techniques were used for this CT. COMPARISON: No relevant priors. FINDINGS: Normal soft tissue structures. Normal calvarium. Normal size ventricles and extra-axial spaces for the patient''s age. Normal white matter tracts of the cerebral hemispheres. Normal basal ganglia and thalami. Normal brainstem. Normal cerebellum. There is no intracranial hemorrhage. There are no findings of an acute ischemic infarction. Normal visualized paranasal sinuses. CT/Brain/Head without Contrast IMPRESSION: No CT evidence of acute intracranial hemorrhage. Electronically Signed: Tanya Middleton MD at 22:18 EDT ,
--- NOTE | 2021-09-16 21:24 | CT_ITS ---
STUDY: CT FACIAL BONES WITHOUT CONTRAST REASON FOR EXAM: Female, 50 years old patient with facial pain after unspecified trauma. RADIATION DOSAGE (If Supplied By Facility): CTDIvol = ( 29.38 ) mGy, DLP = ( 562.15 ) mGycm TECHNIQUE: The patient was scanned in a multi detector CT scanner. Sagittal and coronal images were reconstructed. Individualized dose optimization techniques were used for this CT. COMPARISON: None. FINDINGS: There is a tongue piercing. Normal orbital adler and orbital contents. Normal nasal bones and anterior nasal spine. Adler of frontal sinuses, adler of maxillary sinuses, zygomatic arches, mandible and temporomandibular joints are grossly normal in appearance. There is no demonstrated fracture. There is opacification of posterior left-sided ethmoid sinuses. Paranasal sinuses are otherwise clear. CT/Sinus/Facial Bone IMPRESSION: No CT evidence for facial bone fracture. Electronically Signed: Tanya Middleton MD at 22:09 EDT ,
--- NOTE | 2021-09-16 21:36 | EX.ED.DYSGE1 ---
HPI History of Present Illness Chief Complaint: Syncope Informant: patient and spouse/S.O. Onset/Context/Timing Onset: Today Worsened by: standing Relieved by: lying down Associated Symptoms Associated Symptoms: facial pain/headache due to fall/injury Narrative Narrative: Patient recently was in the hospital and intubated for flash pulmonary edema. She was discharged 3 days ago, and upon discharge she states they increased her Lasix from 40 mg once a day to 40 mg twice a day until she follows up. Tonight, she took all of her nighttime medications, of which she knows none of them. She did not bring her medication list. After reviewing her discharge medications, we determined that she took the following medications all at 1 time and then took a nap: Tizanidine, glipizide, atorvastatin, carvedilol, lisinopril, cefdinir, furosemide, and tramadol. After waking up, she did urinate a lot. Standing up made her feel very lightheaded to the point of near syncope and she fell, she states twice, hitting her head both times, injuring the left side of her face. She has a mild headache. No loss of consciousness, nausea, vomiting, peripheral neurologic symptoms, changes in eyesight. [facility] Medical History Atherosclerotic heart disease of eek coronary artery without angina pectoris Benign hypertension Bilateral interstitial pneumonia Cardiomyopathy, ischemic Chronic low back pain Chronic pain Congestive heart failure (CHF) COPD (chronic obstructive pulmonary disease) COVID-19 virus infection Diabetes Former smoker HFrEF (heart failure with reduced ejection fraction) History of non-ST elevation myocardial infarction (NSTEMI) (06/12/20) Hyperglycemia due to type 2 diabetes mellitus Hyperlipidemia Irregular heart beat Kidney stones Left bundle branch block (LBBB) Myocardial infarct Non-ischemic cardiomyopathy Non-ST elevation (NSTEMI) myocardial infarction Nonobstructive atherosclerosis of coronary artery Obesity Seizures Status post insertion of nerve stimulator Syncope Thyroid nodule Type 2 diabetes mellitus Home Medications omeprazole 20 mg PO DAILY #30 cap 12/01/18 [Rx Last Taken 07/16/21] tizanidine 4 mg PO QHS 06/12/20 [History Last Taken 07/16/21] glipizide 10 mg tablet, extended release 24 hr 10 mg PO BID tab 07/11/20 [History Last Taken 07/16/21] tramadol 50 mg tablet 50 mg PO TID PRN tab 07/11/20 [History Last Taken 07/16/21] aspirin 81 mg PO DAILY #60 cap 05/20/21 [Rx Last Taken 07/16/21] hydroxyzine HCl 25 mg PO TID PRN #20 tab 06/07/21 [Rx Last Taken 07/13/21] clopidogrel 75 mg tablet 75 mg PO DAILY #90 tab 06/08/21 [Rx Last Taken 07/16/21] isosorbide mononitrate 30 mg tablet,extended release 24 hr 30 mg PO DAILY #90 tab 06/29/21 [Rx Last Taken 07/16/21] atorvastatin 80 mg tablet 80 mg PO QHS #90 tab 07/06/21 [Rx Last Taken 07/16/21] carvedilol 6.25 mg tablet 6.25 mg PO BID #180 tab 07/06/21 [Rx Last Taken 07/16/21] lisinopril 20 mg tablet 20 mg PO DAILY #90 tab 07/06/21 [Rx Last Taken 07/16/21] promethazine 25 mg PO TID PRN #21 tab 07/19/21 [Rx Last Taken Unknown] Cepacol Sore Throat (brian-men) 1 nigel MUCOUS MEMBRANE Q2H PRN PRN #0 ea 09/14/21 [Rx Last Taken Unknown] Jardiance 10 mg PO DAILY #30 tab 09/14/21 [Rx Last Taken Unknown] cefdinir 300 mg PO BID #14 cap 09/14/21 [Rx Last Taken Unknown] potassium chloride 20 meq PO DAILY #60 tab 09/14/21 [Rx Last Taken Unknown] tramadol 50 mg PO TID PRN PRN #30 tab 09/14/21 [Rx Last Taken Unknown] furosemide 40 mg PO DAILY #60 tab 09/16/21 [Rx Last Taken Unknown] Allergy/AdvReac Type Severity Reaction Status Date / Time amoxicillin trihydrate AdvReac Vomiting Verified 09/16/21 20:48 [From Augmentin] potassium clavulanate AdvReac Vomiting Verified 09/16/21 20:48 [From Augmentin] Family History Father Myocardial infarction Cancer prostate, leukemia Agent orange exposure Diabetes Sister Diabetes COPD (chronic obstructive pulmonary disease) Surgical History History of appendectomy History of back surgery History of cholecystectomy (1991) History of cholecystectomy History of coronary artery stent placement History of hysterectomy History of laparoscopy History of left heart catheterization (09/14/21) History of tonsillectomy Presence of coronary angioplasty implant and graft (~05/19/21) Social History household members: significant other Smoking Status: Former smoker how long ago did patient quit smokin alcohol intake: current alcohol intake frequency: holidays/special occasions only substance use type: does not use caffeine: Yes ROS ROS ED Constitutional Constitutional ED: Reports as per HPI and other Details: lightheaded/orthostatic ; Denies chills or fever(s) Eyes Eyes: Denies change in vision or diplopia ENT ENT ED: Reports facial pain and headache(s); Denies rhinorrhea or sore throat Cardiovascular Cardiovascular: Denies chest pain or palpitations Respiratory/Chest Respiratory/Chest: Denies cough or dyspnea Gastrointestinal Gastrointestinal: Denies abdominal pain, diarrhea, nausea or vomiting Genitourinary Genitourinary ED: Denies dysuria or hematuria Musculoskeletal Musculoskeletal: Denies back pain or neck pain Integumentary Denies abscess or rash Neurologic Neurologic: Denies headache(s), paresthesias or weakness Psychiatric Psychiatric: Denies anxiety or suicidal thoughts EXAM Physical Exam Const Vital Signs: 09/16/21 20:44 09/16/21 21:07 09/16/21 21:29 Temperature 97.4 F L Temperature Source Temporal Pulse Rate 47 L 57 L Respiratory Rate 17 18 Respiratory Effort Respiratory Pattern Blood Pressure 87/48 L 79/41 L 112/58 L Blood Pressure Mean 61 53 76 Pulse Ox 98 97 Oxygen Delivery Method Room Air Room Air 09/16/21 21:30 09/16/21 21:55 09/16/21 22:18 Temperature Temperature Source Pulse Rate 60 67 Respiratory Rate 18 18 Respiratory Effort Normal Non-Labored Respiratory Pattern Normal Blood Pressure 98/52 L 94/49 L Blood Pressure Mean 67 64 Pulse Ox 97 96 Oxygen Delivery Method Room Air Room Air 09/16/21 22:36 Temperature Temperature Source Pulse Rate Respiratory Rate Respiratory Effort Respiratory Pattern Blood Pressure 95/52 L Blood Pressure Mean 66 Pulse Ox Oxygen Delivery Method Positive well nourished and well developed General Appearance ED: well developed and NAD HEENT Reports moist mucous membranes HEENT Narrative: Contusion left face with tenderness to zygomatic arch and infraorbital maxilla without any mid facial instability or infraorbital hypoesthesia normocephalic Eyes PERRL and EOMs intact bilaterally Eyes Narrative: No extraocular entrapment or pain with EOM Neck full ROM and supple Resp normal respiratory effort and clear to auscultation bilaterally Cardio regular rate, regular rhythm and no murmurs Rate: Negative for bradycardia or tachycardic GI non-tender and non-distended Auscultation: normoactive bowel sounds Palpation: soft Back/Spine no CVA tenderness General Back: other FROM Extremity normal to inspection General Extremety ED: Negative for edema, pulses abnormal or tenderness General Extremity: Negative for edema or pulses abnormal Neuro oriented x3, CN's II-XII intact bilaterally and no sensory deficits noted Sensorium / Orientation: awake and alert Motor Exam: strength 5/5 throughout Skin no rashes or lesions noted and no wounds MDM MDM MDM Narrative Medical decision making narrative: Imaging of her head and face were obtained since she was tender in her left maxilla and zygomatic arch, these images were all normal/negative. Given the combination of medication she took all at one time and then an hour later was orthostatic without any other symptoms, I suspect this was all medication-induced. Therefore, she was given a 250 cc bolus of isotonic saline, on reevaluation her blood pressure was 112 systolic, later 95/52 and she felt better. When she stood up, her blood pressure is 100/59, and she feels much better, very slight lightheadedness but not like before. They are comfortable going home I am comfortable discharging her home and I do not think she needs a septic work-up or other testing right now. I did review her EKG which is unchanged and unremarkable, showing a stable left bundle branch block and no acute ischemic abnormalities. At this time I advised that she discontinue the evening dose of Lasix, and follow-up as advised. We discussed reasons to return they are comfortable with this overall plan. Lab Data Attestation: I reviewed the patient's lab results. Labs: Laboratory Results - last 24 hr 09/16/21 21:52 POC Glucose 310 H Radiography Diagnostic Testing: Clinical Impression(s) from Imaging Studies Brain CT 09/16/21 21:24 IMPRESSION: No CT evidence of acute intracranial hemorrhage. Electronically Signed: Tanya Middleton MD at 22:18 EDT , Facial/Sinus 09/16/21 21:24 IMPRESSION: No CT evidence for facial bone fracture. Electronically Signed: Tanya Middleton MD at 22:09 EDT , EKG Initial EKG: Attestation: I personally reviewed and interpreted this EKG as follows: Interpretation: Sinus Rhythm, No Acute Injury Pattern, LBBB and AV Block (1st deg) Prior EKG tracings: available for review Prior: Unchanged Discharge Plan Triage Chief Complaint: Syncope ED Provider: Rell Loera Dx/Rx/DC Orders Clinical Impression: Orthostatic hypotension, Postural dizziness with near syncope, Facial contusion Instructions: ED Hypotension, Orthostatic Prescriptions: Continued glipizide 10 mg tablet extended release 24hr 10 mg PO BID RF: 0 clopidogrel [Plavix] 75 mg tablet 75 mg PO DAILY Qty: 90 RF: 3 tramadol 50 mg tablet 50 mg PO TID PRN (Reason: Pain) RF: 0 omeprazole 20 MG capsule 20 mg PO DAILY Qty: 30 RF: 0 tizanidine 4 MG tablet 4 mg PO QHS RF: 0 aspirin 81 mg capsule 81 mg PO DAILY Qty: 60 RF: 3 hydroxyzine HCl 25 mg tablet 25 mg PO TID PRN (Reason: anxiety) Qty: 20 RF: 0 promethazine 25 mg tablet 25 mg PO TID PRN (Reason: nausea and vomiting) Qty: 21 RF: 0 Cepacol Sore Throat (brian-men) 15-3.6 mg Lozenge 1 nigel mucous membrane Q2H PRN PRN (Reason: SORE THROAT) Qty: 0 RF: 0 Jardiance 10 mg Tablet 10 mg PO DAILY Qty: 30 RF: 0 tramadol 50 mg Tablet 50 mg PO TID PRN PRN (Reason: Pain Score 1-10) Qty: 30 RF: 0 cefdinir 300 mg capsule 300 mg PO BID Qty: 14 RF: 0 potassium chloride 10 mEq tablet extended release 20 meq PO DAILY Qty: 60 RF: 0 isosorbide mononitrate 30 mg tablet extended release 24 hr 30 mg PO DAILY Qty: 90 RF: 3 Hold Instructions: Resume on 07/22/21. carvedilol 6.25 mg tablet 6.25 mg PO BID Qty: 180 RF: 3 Hold Instructions: Resume on 07/22/21. lisinopril 20 mg tablet 20 mg PO DAILY Qty: 90 RF: 3 Hold Instructions: Resume on 07/22/21. atorvastatin 80 mg tablet 80 mg PO QHS Qty: 90 RF: 3 Changed furosemide 40 mg Tablet 40 mg PO DAILY Qty: 60 RF: 0 Primary Care Provider: Margo Tatum Referrals: Margo Tatum DO [Primary Care Provider] - (And/your your cyber defense forensics analyst as directed) Disposition Disposition: Home, Self Care
--- NOTE | 2021-09-16 21:44 | EKG12_ITS ---
Test Reason : DYSRHYTHMIA Blood Pressure : / mmHG Vent. Rate : 060 BPM Atrial Rate : 060 BPM P-R Int : 238 ms QRS Dur : 164 ms QT Int : 500 ms P-R-T Axes : 044 -05 -02 degrees QTc Int : 500 ms Sinus rhythm with 1st degree A-V block with Premature supraventricular complexes Left bundle branch block Abnormal ECG Confirmed by SAM GEE, PARAS ([id number]), associate entertainment editor JAYLIN FRANK ([id number]) on 09/18/2021 1:00:02 PM Referred By: ANTHONY Confirmed By:DEJUAN VARGAS MD
[2021-09-16 22:00] LABS: Bedside Glucose 310 mg/dL (74-106)
== END 2021-09-16 23:01 | disposition home or self-care (01) ==
PROVIDERS: Emergency Provider Emergency Medicine; PCP Family Medicine; Visit Provider Emergency Medicine
DX: I95.1 Orthostatic hypotension (principal); J44.9 Chronic obstructive pulmonary disease, unspecified; I11.0 Hypertensive heart disease with heart failure; I42.8 Other cardiomyopathies; I50.22 Chronic systolic (congestive) heart failure; E11.9 Type 2 diabetes mellitus without complications; E78.5 Hyperlipidemia, unspecified; S00.83XA Contusion of other part of head, initial encounter; W18.30XA Fall on same level, unspecified, initial encounter; Y93.89 Activity, other specified; Y99.8 Other external cause status; I25.10 Atherosclerotic heart disease of native coronary artery without angina pectoris; E66.9 Obesity, unspecified; I25.2 Old myocardial infarction; Z95.5 Presence of coronary angioplasty implant and graft; Z79.02 Long term (current) use of antithrombotics/antiplatelets; Z79.84 Long term (current) use of oral hypoglycemic drugs; Z79.899 Other long term (current) drug therapy; Z86.16 Personal history of COVID-19; Z87.891 Personal history of nicotine dependence
CPT/HCPCS: 70450; 70486; 82962; 93005; 99283; J7050; A4216

== ENCOUNTER 2021-09-20 19:06 | Emergency (ER) | payer MEDICARE, MEDICAID, SELFPAY ==
[2021-09-20 19:07] VITALS: BP 114/86; PULSE 80; RESP 15; TEMP 36.2; O2SAT 99; BMI 32.3
--- NOTE | 2021-09-20 19:42 | EX.ED.DYSGE1 ---
HPI History of Present Illness Chief Complaint: Nausea/Vomiting Narrative Narrative: Patient presents with pain and her head after a fall. She was seen in our emergency department and cleared. She had normal facial CT and head CT. She is presenting with right face pain and headache. She also has some nausea and vomiting. She has no diarrhea or constipation. She has no abdominal pain. No chest pain or shortness of breath. [facility] Medical History Atherosclerotic heart disease of [place] coronary artery without angina pectoris Benign hypertension Bilateral interstitial pneumonia Cardiomyopathy, ischemic Chronic low back pain Chronic pain Congestive heart failure (CHF) COPD (chronic obstructive pulmonary disease) COVID-19 virus infection Diabetes Former smoker HFrEF (heart failure with reduced ejection fraction) History of non-ST elevation myocardial infarction (NSTEMI) (06/12/20) Hyperglycemia due to type 2 diabetes mellitus Hyperlipidemia Irregular heart beat Kidney stones Left bundle branch block (LBBB) Myocardial infarct Non-ischemic cardiomyopathy Non-ST elevation (NSTEMI) myocardial infarction Nonobstructive atherosclerosis of coronary artery Obesity Seizures Status post insertion of nerve stimulator Syncope Thyroid nodule Type 2 diabetes mellitus Home Medications omeprazole 20 mg PO DAILY #30 cap 12/01/18 [Rx Last Taken 07/16/21] tizanidine 4 mg PO QHS 06/12/20 [History Last Taken 07/16/21] glipizide 10 mg tablet, extended release 24 hr 10 mg PO BID tab 07/11/20 [History Last Taken 07/16/21] tramadol 50 mg tablet 50 mg PO TID PRN tab 07/11/20 [History Last Taken 07/16/21] aspirin 81 mg PO DAILY #60 cap 05/20/21 [Rx Last Taken 07/16/21] hydroxyzine HCl 25 mg PO TID PRN #20 tab 06/07/21 [Rx Last Taken 07/13/21] clopidogrel 75 mg tablet 75 mg PO DAILY #90 tab 06/08/21 [Rx Last Taken 07/16/21] isosorbide mononitrate 30 mg tablet,extended release 24 hr 30 mg PO DAILY #90 tab 06/29/21 [Rx Last Taken 07/16/21] atorvastatin 80 mg tablet 80 mg PO QHS #90 tab 07/06/21 [Rx Last Taken 07/16/21] carvedilol 6.25 mg tablet 6.25 mg PO BID #180 tab 07/06/21 [Rx Last Taken 07/16/21] lisinopril 20 mg tablet 20 mg PO DAILY #90 tab 07/06/21 [Rx Last Taken 07/16/21] promethazine 25 mg PO TID PRN #21 tab 07/19/21 [Rx Last Taken Unknown] Cepacol Sore Throat (brian-men) 1 nigel MUCOUS MEMBRANE Q2H PRN PRN #0 ea 09/14/21 [Rx Last Taken Unknown] Jardiance 10 mg PO DAILY #30 tab 09/14/21 [Rx Last Taken Unknown] cefdinir 300 mg PO BID #14 cap 09/14/21 [Rx Last Taken Unknown] potassium chloride 20 meq PO DAILY #60 tab 09/14/21 [Rx Last Taken Unknown] tramadol 50 mg PO TID PRN PRN #30 tab 09/14/21 [Rx Last Taken Unknown] furosemide 40 mg PO DAILY #60 tab 09/16/21 [Rx Last Taken Unknown] ondansetron 4 mg PO Q8H #20 tab 09/20/21 [Rx Last Taken Unknown] oxycodone-acetaminophen [Percocet] 1 tab PO Q8H PRN 3 Days #10 tab 09/20/21 [Rx Last Taken Unknown] Allergy/AdvReac Type Severity Reaction Status Date / Time amoxicillin trihydrate AdvReac Vomiting Verified 09/20/21 19:10 [From Augmentin] potassium clavulanate AdvReac Vomiting Verified 09/20/21 19:10 [From Augmentin] Family History Father Myocardial infarction Cancer prostate, leukemia Agent orange exposure Diabetes Sister Diabetes COPD (chronic obstructive pulmonary disease) Surgical History History of appendectomy History of back surgery History of cholecystectomy (1991) History of cholecystectomy History of coronary artery stent placement History of hysterectomy History of laparoscopy History of left heart catheterization (09/14/21) History of tonsillectomy Presence of coronary angioplasty implant and graft (~05/19/21) Social History household members: significant other Smoking Status: Former smoker how long ago did patient quit smokin alcohol intake: current alcohol intake frequency: holidays/special occasions only substance use type: does not use caffeine: Yes ROS ROS ED ROS Narrative Past medical history: Reviewed at the bedside and in the EMR. Medications: Reviewed Social history: Noncontributory Review of systems: All systems negative except as indicated General: No fever Eyes: No visual changes ENT: Right-sided facial pain Neck: No neck pain Cardiovascular: No chest pain Respiratory: No shortness of breath or cough Gastrointestinal: Some nausea and an episode of vomiting Genitourinary: No dysuria Musculoskeletal: She has chronic weakness in extremities from recent hospitalization, this does not change recent Skin: No rash Neurological: No memory loss, confusion or any focal weakness Psych: No recent behavioral changes Hematologic: No easy bleeding or easy bruising EXAM Physical Exam Narrative Exam Narrative: Physical exam General: Patient appears chronically ill but does not appear in any distress. She appears her recorded BMI of 32. Head: Normocephalic, Atraumatic Eyes: Conjunctiva not pale. Full range of motion of the eyes without any kind of pain. ENT: Moist mucous membranes, no signs of dehydration. There is slight contusion over the right maxillary region. Neck: Supple, Nontender, No lymphadenopathy Cardiovascular: Regular rate, Regular rhythm Respiratory: No distress, CTA bilaterally Abdomen: Soft, Nontender, Nondistended Back: Nontender, Normal Inspection. Negative for: CVA tenderness Extremities: No edema. Some tenderness over the deltoid region of the right shoulder. Full range of motion. No AC joint tenderness Skin: Normal color, No rash Neurological: Alert, Normal Strength, Normal Sensation Psychological: Normal affect Const Vital Signs: 09/20/21 19:07 Temperature 97.1 F L Temperature Source Temporal Pulse Rate 80 Respiratory Rate 15 Blood Pressure 114/86 H Blood Pressure Mean 95 Pulse Ox 99 Oxygen Delivery Method Room Air MDM MDM MDM Narrative Medical decision making narrative: Patient has an unremarkable emergency department work-up. Family was concerned about CHF exacerbation, however patient has no shortness of breath she does not hypoxic, she has no lower extremity edema no orthopnea. I do not believe at this time she is having a CHF exacerbation. She is here for nausea and pain from her fall. These were addressed and patient feels better. Her basic blood work is unremarkable. I believe she can be safely discharged home tonight. Lab Data Labs: Laboratory Results - last 24 hr 09/20/21 09/20/21 20:10 20:50 WBC 5.5 RBC 4.11 L Hgb 12.6 Hct 37.7 MCV 91.7 MCH 30.7 MCHC 33.4 RDW Std Deviation 43.5 RDW Coeff of Tomi 12.8 Plt Count 256 MPV 10.4 Immature Gran % (Auto) 0.400 Neut % (Auto) 59.2 Lymph % (Auto) 32.3 [place] % (Auto) 6.2 Eos % (Auto) 1.5 Baso % (Auto) 0.4 Absolute Neuts (auto) 3.3 Absolute Lymphs (auto) 1.77 Nucleated RBC % 0 Sodium 141 Potassium 3.8 Chloride 108 H Carbon Dioxide 26.0 Anion Gap 7 BUN 18 Creatinine 0.95 Estim Creat Clear Calc 63.04 Est GFR (MDRD) Af Amer 80 Est GFR (MDRD) Non-Af 66 BUN/Creatinine Ratio 19.0 Glucose 189 H Calcium 9.1 Total Bilirubin 0.50 AST 15 ALT 23 Alkaline Phosphatase 61 Total Protein 7.3 Albumin 3.2 Globulin 4.1 Albumin/Globulin Ratio 0.8 L Discharge Plan Triage Chief Complaint: Nausea/Vomiting ED Provider: Gustavo Garcia Dx/Rx/DC Orders Clinical Impression: Contusion of face, Nausea Instructions: Nausea Vomit Control, Bruises (Contusions) Prescriptions: New ondansetron 4 mg tablet,disintegrating 4 mg PO Q8H Qty: 20 RF: 0 oxycodone-acetaminophen [Percocet] 5-325 mg tablet 1 tab PO Q8H PRN (Reason: pain) 3 Days Qty: 10 RF: 0 No Action glipizide 10 mg tablet extended release 24hr 10 mg PO BID RF: 0 clopidogrel [Plavix] 75 mg tablet 75 mg PO DAILY Qty: 90 RF: 3 tramadol 50 mg tablet 50 mg PO TID PRN (Reason: Pain) RF: 0 omeprazole 20 MG capsule 20 mg PO DAILY Qty: 30 RF: 0 tizanidine 4 MG tablet 4 mg PO QHS RF: 0 aspirin 81 mg capsule 81 mg PO DAILY Qty: 60 RF: 3 hydroxyzine HCl 25 mg tablet 25 mg PO TID PRN (Reason: anxiety) Qty: 20 RF: 0 promethazine 25 mg tablet 25 mg PO TID PRN (Reason: nausea and vomiting) Qty: 21 RF: 0 Cepacol Sore Throat (brian-men) 15-3.6 mg Lozenge 1 nigel mucous membrane Q2H PRN PRN (Reason: SORE THROAT) Qty: 0 RF: 0 Jardiance 10 mg Tablet 10 mg PO DAILY Qty: 30 RF: 0 tramadol 50 mg Tablet 50 mg PO TID PRN PRN (Reason: Pain Score 1-10) Qty: 30 RF: 0 cefdinir 300 mg capsule 300 mg PO BID Qty: 14 RF: 0 potassium chloride 10 mEq tablet extended release 20 meq PO DAILY Qty: 60 RF: 0 furosemide 40 mg Tablet 40 mg PO DAILY Qty: 60 RF: 0 isosorbide mononitrate 30 mg tablet extended release 24 hr 30 mg PO DAILY Qty: 90 RF: 3 Hold Instructions: Resume on 07/22/21. carvedilol 6.25 mg tablet 6.25 mg PO BID Qty: 180 RF: 3 Hold Instructions: Resume on 07/22/21. lisinopril 20 mg tablet 20 mg PO DAILY Qty: 90 RF: 3 Hold Instructions: Resume on 07/22/21. atorvastatin 80 mg tablet 80 mg PO QHS Qty: 90 RF: 3 Primary Care Provider: Margo Tatum Referrals: Margo Tatum DO [Primary Care Provider] - 3-5 Days Disposition Disposition: Home, Self Care
[2021-09-20] MEDS: Morphine 4 MG/ML Syringe IV (19:46)
[2021-09-20] MEDS: Ondansetron 4 MG/2 ML Vial IV (19:46)
[2021-09-20 20:20] LABS: Absolute Lymphocyte Count 1.77 X10^3/uL (0.83-4.51); Absolute Neutrophil Count 3.3 X10^3/uL (2.0-7.7); Basophil# 0.02 X10^3/uL; Basophil% 0.4 % (0-1); Eosinophil# 0.08 X10^3/uL; Eosinophils% 1.5 % (0-5); Hematocrit 37.7 % (37-47); Hemoglobin 12.6 g/dL (12.0-15.0); Lymphocyte # 1.77 X10^3/ul (0.83-4.51); Lymphocyte % 32.3 % (19-41); Mean Corp Hgb Conc 33.4 g/dL (32-36); Mean Corpuscular Hgb 30.7 pg (27.0-32.0); Mean Corpuscular Volume 91.7 fL (81-99); Mean Platelet Vol. 10.4 fl (6.2-12.0); Monocyte# 0.34 X10^3/uL; Monocyte% 6.2 % (0-10); NRBC Flagged by Analyzer 0 % (0-5); Neutrophil # 3.25 X10^3/uL (2.7-7.7); Neutrophil % 59.2 % (47-70); Platelet Count 256 K/mm3 (150-450); RBC Distribution Width CV 12.8 % (11.6-14.6); RBC Distribution Width SD 43.5 fl (35.1-43.9); Red Blood Count 4.11 M/mm3 (4.2-5.4); White Blood Count 5.5 K/mm3 (4.4-11.0)
[2021-09-20 21:12] LABS: ALB/GLOB Ratio 0.8 RATIO (0.9-2.4); AST(SGOT) 15 U/L (15-37); Alanine Aminotransfer ALT/SGPT 23 U/L (13-56); Albumin, Serum 3.2 g/dL (3.2-5.0); Alkaline Phosphatase 61 U/L (45-117); Anion Gap 7 (5-15); BUN 18 mg/dL (7-18); Calcium,Total 9.1 mg/dL (8.5-10.1); Chloride 108 mmol/L (98-107); Creatinine, Serum 0.95 mg/dL (0.55-1.02); EST Glomerular Filtration Rate 66 mL/min (>60); Est Glom Filt Rate - Afr Amer 80 mL/min (>60); Estimated Creatinine Clearance 63.04 ml/min; Globulin 4.1 g/dL (2.2-4.2); Glucose 189 mg/dL (74-106); Potassium 3.8 mmol/L (3.5-5.1); Protein, Total 7.3 g/dL (6.4-8.2); Sodium Level 141 mmol/L (136-145)
[2021-09-20 21:41] VITALS: BP 142/82; PULSE 74; RESP 16; O2SAT 94
== END 2021-09-20 21:54 | disposition home or self-care (01) ==
PROVIDERS: Emergency Provider Emergency Medicine; PCP Family Medicine; Visit Provider Emergency Medicine
DX: S00.83XA Contusion of other part of head, initial encounter (principal); J44.9 Chronic obstructive pulmonary disease, unspecified; I11.0 Hypertensive heart disease with heart failure; I50.22 Chronic systolic (congestive) heart failure; I42.8 Other cardiomyopathies; E11.9 Type 2 diabetes mellitus without complications; W19.XXXA Unspecified fall, initial encounter; R11.2 Nausea with vomiting, unspecified; Z68.32 Body mass index [BMI] 32.0-32.9, adult; E78.5 Hyperlipidemia, unspecified; I25.10 Atherosclerotic heart disease of native coronary artery without angina pectoris; I25.2 Old myocardial infarction; E66.9 Obesity, unspecified; Z95.5 Presence of coronary angioplasty implant and graft; Z79.02 Long term (current) use of antithrombotics/antiplatelets; Z79.82 Long term (current) use of aspirin; Z79.84 Long term (current) use of oral hypoglycemic drugs; Z79.899 Other long term (current) drug therapy; Z86.16 Personal history of COVID-19; Z87.891 Personal history of nicotine dependence
CPT/HCPCS: 80053; 85025; 99283; A4216; J2405

== ENCOUNTER → 2021-10-27 | Outpatient (CLI) | payer MEDICARE, MEDICAID, SELFPAY ==
[2021-10-27 15:59] LABS: Amphetamine Urine VISTA NEGATIVE (<1000 ng/mL); Barbiturate Urine VISTA NEGATIVE (< 200 ng/mL); Benzodiazepine Urine VISTA NEGATIVE (< 200 ng/mL); Cocaine Urine VISTA NEGATIVE (< 300 ng/mL); Ecstacy Urine VISTA NEGATIVE (< 500 ng/mL); Methadone Urine VISTA NEGATIVE (< 300 ng/mL); PCP Urine VISTA NEGATIVE (< 25 ng/mL); THC Urine VISTA NEGATIVE (< 50 ng/mL); Vista UDS pH Range 4
== END | disposition home or self-care (01) ==
LOC: LAB 14:52
PROVIDERS: PCP Family Medicine; Referring Provider Anesthesiology Pain Medicine; Visit Provider Anesthesiology Pain Medicine
DX: F11.20 Opioid dependence, uncomplicated (principal)
CPT/HCPCS: 80307

== ENCOUNTER 2021-11-06 18:20 | Emergency (ER) | payer MEDICARE, MEDICAID, SELFPAY ==
[2021-11-06 18:20] VITALS: BP 171/86; PULSE 84; RESP 19; TEMP 37; O2SAT 99; BMI 34.9
[2021-11-06 18:28] VITALS: O2SAT 99
--- NOTE | 2021-11-06 18:28 | EKG12_ITS ---
Test Reason : CP Blood Pressure : / mmHG Vent. Rate : 086 BPM Atrial Rate : 086 BPM P-R Int : 184 ms QRS Dur : 164 ms QT Int : 436 ms P-R-T Axes : 040 -06 041 degrees QTc Int : 521 ms Sinus rhythm with Premature atrial complexes Left bundle branch block Abnormal ECG Confirmed by JANAY GEE, JAMEL ([id number]), newspaper or periodical editor JAYLIN FRANK ([id number]) on 11/09/2021 1:02:00 PM Referred By: Confirmed By:JAMEL GUSTAFSON MD
--- NOTE | 2021-11-06 18:35 | RAD_ITS ---
STUDY: X-RAY CHEST REASON FOR EXAM: Female, 50 years old. Technologist Notes HYPERVENTILATING AND C/O SOB AND CP. chest pain TECHNIQUE: XR Chest 1 View COMPARISON: 4.7.22 FINDINGS: There is no demonstrated pleural abnormality. Normal size heart. Normal mediastinum and tony. Normal visualized pulmonary arteries. There is atherosclerotic calcification of the aortic arch with tortuosity. There are diffuse degenerative changes of the visualized thoracic spine. Normal visualized ribs, clavicles, and shoulders. There is no demonstrated abnormality of the visualized soft tissue structures of the upper abdomen. RAD/Chest 1 View (Portable) IMPRESSION: There are no acute findings. Electronically Signed: Jamar Sue MD at 18:53 EDT ,
--- NOTE | 2021-11-06 18:37 | EDS_ITS ---
HPI <CARMEN Vines - Last Filed: 11/06/21 19:54> History of Present Illness Chief Complaint: Chest Pain Narrative Narrative: 50-year-old female a long cardiac history history of congestive heart failure presents to the emergency department with dyspnea. 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 Patient was intubated secondary to a CHF exacerbation many months ago and this scared her. Patient denies any fevers or chills. Patient does have history of being short of breath intermittently. Denies any nausea vomiting. PFS <CARMEN Vines - Last Filed: 11/06/21 19:54> [facility] Medical History (Updated 11/06/21 @ 20:[address] Terry Arzate MD) Atherosclerotic heart disease of [place] coronary artery without angina pectoris Benign hypertension Bilateral interstitial pneumonia Cardiomyopathy, ischemic Chronic low back pain Chronic pain COPD (chronic obstructive pulmonary disease) COVID-19 virus infection Difficult intubation Former smoker HFrEF (heart failure with reduced ejection fraction) History of non-ST elevation myocardial infarction (NSTEMI) (09/08/21) Hyperglycemia due to type 2 diabetes mellitus Hyperlipidemia Irregular heart beat Kidney stones Left bundle branch block (LBBB) Myocardial infarct Non-ischemic cardiomyopathy Non-ST elevation (NSTEMI) myocardial infarction Nonobstructive atherosclerosis of coronary artery Obesity Seizures Status post insertion of nerve stimulator Syncope Thyroid nodule Type 2 diabetes mellitus Home Medications tizanidine 4 mg PO QHS 06/12/20 [History Last Taken 07/16/21] glipizide 10 mg tablet, extended release 24 hr 10 mg PO BID tab 07/11/20 [History Last Taken 07/16/21] aspirin 81 mg PO DAILY #60 cap 05/20/21 [Rx Last Taken 07/16/21] hydroxyzine HCl 25 mg PO TID PRN #20 tab 06/07/21 [Rx Last Taken 07/13/21] clopidogrel 75 mg tablet 75 mg PO DAILY #90 tab 06/08/21 [Rx Last Taken 07/16/21] isosorbide mononitrate 30 mg tablet,extended release 24 hr 30 mg PO DAILY #90 tab 06/29/21 [Rx Last Taken 07/16/21] atorvastatin 80 mg tablet 80 mg PO QHS #90 tab 07/06/21 [Rx Last Taken 07/16/21] lisinopril 20 mg tablet 20 mg PO DAILY #90 tab 07/06/21 [Rx Last Taken 07/16/21] promethazine 25 mg PO TID PRN #21 tab 07/19/21 [Rx Last Taken Unknown] Cepacol Sore Throat (brian-men) 1 nigel MUCOUS MEMBRANE Q2H PRN PRN #0 ea 09/14/21 [Rx Last Taken Unknown] potassium chloride 20 meq PO DAILY #60 tab 09/14/21 [Rx Last Taken Unknown] tramadol 50 mg PO TID PRN PRN #30 tab 09/14/21 [Rx Last Taken Unknown] furosemide 40 mg PO DAILY #60 tab 09/16/21 [Rx Last Taken Unknown] ondansetron 4 mg PO Q8H #20 tab 09/20/21 [Rx Last Taken Unknown] oxycodone-acetaminophen [Percocet] 1 tab PO Q8H PRN 3 Days #10 tab 09/20/21 [Rx Last Taken Unknown] carvedilol 12.5 mg tablet 12.5 mg PO BID #180 tab 10/15/21 [Rx Last Taken Unknown] dapagliflozin 10 mg tablet 10 mg PO DAILY #90 tab 10/29/21 [Rx Last Taken Unknown] nitrofurantoin monohyd/m-cryst 100 mg PO Q12 #10 capsule 11/06/21 [Rx Last Taken Unknown] Allergy/AdvReac Type Severity Reaction Status Date / Time amoxicillin trihydrate AdvReac Vomiting Verified 11/06/21 18:27 [From Augmentin] potassium clavulanate AdvReac Vomiting Verified 11/06/21 18:27 [From Augmentin] Family History Father Myocardial infarction Cancer prostate, leukemia Agent orange exposure Diabetes Sister Diabetes COPD (chronic obstructive pulmonary disease) Surgical History (Updated 09/29/21 @ 15:47 by Julissa Heard) History of appendectomy History of back surgery History of cholecystectomy (1991) History of cholecystectomy History of coronary artery stent placement (05/19/21) History of hysterectomy History of laparoscopy History of left heart catheterization (09/14/21) History of tonsillectomy Social History household members: significant other Smoking Status: Former smoker how long ago did patient quit smokin alcohol intake: current alcohol intake frequency: holidays/special occasions only substance use type: does not use caffeine: Yes ROS <CARMEN Vines - Last Filed: 11/06/21 19:54> ROS ED ROS Narrative Constitutional: Negative for fever, chills, weight loss, weakness Eyes: Negative for vision loss, vision change, double vision ENT: Negative for any sore throat, ear pain, congestion Cardiovascular: Negative for any chest pain, palpitations. Positive chest tightness Respiratory: Negative for any sputum production, hemoptysis. Positive for cough, dyspnea, dyspnea on exertion, orthopnea Gastrointestinal: Negative for any abdominal pain, nausea, vomiting, diarrhea, constipation, blood in stool, blood in vomit : Negative for any urinary frequency, dysuria, retention, blood in urine Muscle skeletal: Negative for any muscle joint pain, stiffness, myalgias, arthralgias, neck pain, back pain Neurological: Negative for any headache, syncope, numbness or tingling, dizziness Skin: Negative for any rashes, lumps, itching, abrasions, lacerations Psychiatric: Negative for any depression, anxiety, stress, suicidal ideation, homicidal ideation Hematologic: Negative for any easy bruising, excessive bruising, easy bleeding Allergies: Negative for any eczema, hives, rash EXAM <CARMEN Vines - Last Filed: 11/06/21 19:54> Physical Exam Narrative Exam Narrative: Vital signs reviewed. Patient is tachypneic, patient's vital signs are stable. Patient is able speak complete sentences. HEET: Head normocephalic atraumatic, TMs clear bilaterally. Posterior pharynx is clear, moist mucous membranes. Nares clear bilaterally. Neck: Supple with no lymphadenopathy or tenderness. No signs of meningismus, negative jolt sign. Cardiac: Regular rate and rhythm no murmurs gallops or rubs, equal peripheral pulses bilaterally. Respiratory: Lungs clear to auscultation bilaterally possible minimal crackles to the right lower lobe. No chest tenderness. Abdomen: Soft, nontender, nondistended. No abdominal bruit or pulsatile masses. No hepatosplenomegaly Extremities: No peripheral edema, no signs of gross trauma or deformity. Active full range of motion of all extremities. Neuro: Cranial nerves II through XII intact, no focal neurological deficits. Skin: Clean dry and intact with no rash, purpura, petechiae, vesicles or pustules. Backs/flank: No CVA tenderness, no midline spinal tenderness, no deformity. Psych: Normal mood and affect. No SI, HI or acute psychosis. Const Vital Signs: 11/06/21 18:20 11/06/21 18:25 11/06/21 18:28 Temperature 98.6 F Temperature Source Oral Pulse Rate 84 Respiratory Rate 19 H Respiratory Effort Normal Non-Labored Respiratory Depth Respiratory Pattern Blood Pressure 171/86 H Blood Pressure Mean 114 Pulse Ox 99 99 Oxygen Delivery Method Room Air Room Air 11/06/21 18:46 Temperature Temperature Source Pulse Rate 84 Respiratory Rate 18 Respiratory Effort Short of Breath Respiratory Depth Deep Respiratory Pattern Normal Blood Pressure Blood Pressure Mean Pulse Ox 98 Oxygen Delivery Method Room Air Positive well nourished, well developed and obese General Appearance ED: well developed Nutritional Appearance: obese <Dr. Terry Arzate MD - Last Filed: 11/06/21 20:37> Physical Exam Const Vital Signs: 11/06/21 18:20 11/06/21 18:25 11/06/21 18:28 Temperature 98.6 F Temperature Source Oral Pulse Rate 84 Respiratory Rate 19 H Respiratory Effort Normal Non-Labored Respiratory Depth Respiratory Pattern Blood Pressure 171/86 H Blood Pressure Mean 114 Pulse Ox 99 99 Oxygen Delivery Method Room Air Room Air 11/06/21 18:46 Temperature Temperature Source Pulse Rate 84 Respiratory Rate 18 Respiratory Effort Short of Breath Respiratory Depth Deep Respiratory Pattern Normal Blood Pressure Blood Pressure Mean Pulse Ox 98 Oxygen Delivery Method Room Air MDM <CARMEN Vines - Last Filed: 11/06/21 19:54> [facility] Narrative Medical decision making narrative: Patient arrives appearing to be in mild respiratory distress secondary to tachypnea. Patient's vital signs are stable. Patient presents the emergency department with a dyspneic episode following a stressful event at a workplace. Patient did receive a full cardiac work-up, she does have history of CHF. Patient's lung sounds were clear, CBC, chemistries were unremarkable. Patient's troponin was negative. EKG was unremarkable. Patient's heart score is a total of 3. I do not believe this was cardiac in nature. Chest x-ray was read by ER physician which showed no acute findings. There is no physical evidence of congestive heart failure. She did receive 2 breathing treatments which I believe to help. When she calmed down, patient's heart rate remained stable as well as a oxygenation of 100%. Patient did have decrease of chest pressure once she got here. I believe the patient had a stress reaction secondary to what happened at work. There is no evidence to support any acute cardiopulmonary pathology. 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 Lab Data Attestation: I reviewed the patient's lab results. Labs: Laboratory Results - last 24 hr 11/06/21 11/06/21 11/06/21 18:29 18:29 18:29 WBC 6.3 RBC 3.49 L Hgb 10.9 L Hct 32.5 L MCV 93.1 MCH 31.2 MCHC 33.5 RDW Std Deviation 48.6 H RDW Coeff of Tomi 14.4 Plt Count 222 MPV 9.7 Immature Gran % (Auto) 0.200 Neut % (Auto) 63.7 Lymph % (Auto) 29.7 Roosevelt % (Auto) 5.4 Eos % (Auto) 0.8 Baso % (Auto) 0.2 Absolute Neuts (auto) 4.0 Absolute Lymphs (auto) 1.86 Nucleated RBC % 0 Sodium 142 Potassium 3.9 Chloride 113 H Carbon Dioxide 22.0 Anion Gap 7 BUN 20 H Creatinine 1.09 H Estim Creat Clear Calc 52.73 Est GFR (MDRD) Af Amer 68 Est GFR (MDRD) Non-Af 56 L BUN/Creatinine Ratio 18.3 Glucose 124 H Calcium 9.2 Troponin I High Sens 4 B-Natriuretic Peptide 204.9 H Urine Color Urine Clarity Urine pH Ur Specific [place] Urine Protein Urine Glucose (UA) Urine Ketones Urine Occult Blood Urine Nitrite Urine Bilirubin Urine Urobilinogen Ur Leukocyte Esterase Urine RBC Urine WBC Ur Squamous Epith Cells Amorphous Sediment Urine Bacteria Urine Mucus 11/06/21 20:00 WBC RBC Hgb Hct MCV MCH MCHC RDW Std Deviation RDW Coeff of Tomi Plt Count MPV Immature Gran % (Auto) Neut % (Auto) Lymph % (Auto) Roosevelt % (Auto) Eos % (Auto) Baso % (Auto) Absolute Neuts (auto) Absolute Lymphs (auto) Nucleated RBC % Sodium Potassium Chloride Carbon Dioxide Anion Gap BUN Creatinine Estim Creat Clear Calc Est GFR (MDRD) Af Amer Est GFR (MDRD) Non-Af BUN/Creatinine Ratio Glucose Calcium Troponin I High Sens B-Natriuretic Peptide Urine Color Yellow Urine Clarity Sl. Cloudy Urine pH 6.0 Ur Specific [place] 1.010 Urine Protein 30 H Urine Glucose (UA) 1000 H Urine Ketones Negative Urine Occult Blood 150 H Urine Nitrite Positive H Urine Bilirubin 1 H Urine Urobilinogen 4 H Ur Leukocyte Esterase 100 H Urine RBC 10-25 SEEN Urine WBC 25-50 SEEN Ur Squamous Epith Cells 0-5 SEEN Amorphous Sediment 1+ URATE Urine Bacteria 1+ Urine Mucus 0 SEEN Radiography Diagnostic Testing: Clinical Impression(s) from Imaging Studies Chest X-Ray 11/06/21 18:35 IMPRESSION: There are no acute findings. Electronically Signed: Jamar Sue MD at 18:53 EDT Reading Location ID and State: [facility] / [place] , Service support , EKG Sinus rhythm with premature atrial complexes: Attestation: I personally reviewed and interpreted this EKG as follows: Comments: Sinus rhythm with premature atrial complexes, left bundle branch block, rate of 86 bpm, VT interval 184 ms, QRS duration 164 ms, no acute ST elevation, no acute infarct noted <Dr. Terry Arzate MD - Last Filed: 11/06/21 20:37> [facility] Narrative Medical decision making narrative: I have personally performed a face to face assessment of the patient and have reviewed the DARRION Note. I performed a substantive portion of the visit including all aspects of the following. My wu findings include: History is remarkable for shortness of breath and chest pain when she ran towards a client. She has history of coronary disease as well as other risk factors or cardiac disease. She does have 1 stent that was recently placed. She states the chest discomfort was central. Described as a discomfort with shortness of breath. There is no history of VTE. She denies leg pain, swelling discoloration. She has no risk factors for VTE. She denies fever, chills night sweats. She denies cough. She denies GI symptoms. She does have urinary symptoms that started yesterday morning. Her last urinary tract infection was 3 to 5 years ago. She denies leg pain, swelling or discoloration. Exam is remarkable for tenderness in suprapubic area. H EENT exam is unremarkable. Lungs are clear to auscultation with good movement of air bilaterally. Heart is regular with a normal rate without murmur, gallop or rub. Abdomen is remarkable for suprapubic discomfort. There is no CVA tenderness noted. There is no asymmetry, swelling, discoloration, leg vein distention, palpable cords or tenderness along the distribution of the deep venous system. Neuro exam is nonfocal. Medical Decision Making with risk factors for coronary disease history of current disease EKG and troponin were obtained to evaluate for atypical cardiac presentation. Suspect anxiety. Chest x-ray was independently reviewed reviewed and interpreted by me as negative. Patient has nonspecific anemia with a hemoglobin 10.9. Basic metabolic panel is remarkable glucose of 124. GFR is 56 with a creatinine of 1.09. BNP is slightly elevated 204. Urine is consistent with infection. She was treated with Macrobid. Other additions or changes: [None] Lab Data Attestation: I reviewed the patient's lab results. Labs: Laboratory Results - last 24 hr 11/06/21 11/06/21 11/06/21 18:29 18:29 18:29 WBC 6.3 RBC 3.49 L Hgb 10.9 L Hct 32.5 L MCV 93.1 MCH 31.2 MCHC 33.5 RDW Std Deviation 48.6 H RDW Coeff of Tomi 14.4 Plt Count 222 MPV 9.7 Immature Gran % (Auto) 0.200 Neut % (Auto) 63.7 Lymph % (Auto) 29.7 [place] % (Auto) 5.4 Eos % (Auto) 0.8 Baso % (Auto) 0.2 Absolute Neuts (auto) 4.0 Absolute Lymphs (auto) 1.86 Nucleated RBC % 0 Sodium 142 Potassium 3.9 Chloride 113 H Carbon Dioxide 22.0 Anion Gap 7 BUN 20 H Creatinine 1.09 H Estim Creat Clear Calc 52.73 Est GFR (MDRD) Af Amer 68 Est GFR (MDRD) Non-Af 56 L BUN/Creatinine Ratio 18.3 Glucose 124 H Calcium 9.2 Troponin I High Sens 4 B-Natriuretic Peptide 204.9 H Urine Color Urine Clarity Urine pH Ur Specific [place] Urine Protein Urine Glucose (UA) Urine Ketones Urine Occult Blood Urine Nitrite Urine Bilirubin Urine Urobilinogen Ur Leukocyte Esterase Urine RBC Urine WBC Ur Squamous Epith Cells Amorphous Sediment Urine Bacteria Urine Mucus 11/06/21 20:00 WBC RBC Hgb Hct MCV MCH MCHC RDW Std Deviation RDW Coeff of Tomi Plt Count MPV Immature Gran % (Auto) Neut % (Auto) Lymph % (Auto) [place] % (Auto) Eos % (Auto) Baso % (Auto) Absolute Neuts (auto) Absolute Lymphs (auto) Nucleated RBC % Sodium Potassium Chloride Carbon Dioxide Anion Gap BUN Creatinine Estim Creat Clear Calc Est GFR (MDRD) Af Amer Est GFR (MDRD) Non-Af BUN/Creatinine Ratio Glucose Calcium Troponin I High Sens B-Natriuretic Peptide Urine Color Yellow Urine Clarity Sl. Cloudy Urine pH 6.0 Ur Specific [place] 1.010 Urine Protein 30 H Urine Glucose (UA) 1000 H Urine Ketones Negative Urine Occult Blood 150 H Urine Nitrite Positive H Urine Bilirubin 1 H Urine Urobilinogen 4 H Ur Leukocyte Esterase 100 H Urine RBC 10-25 SEEN Urine WBC 25-50 SEEN Ur Squamous Epith Cells 0-5 SEEN Amorphous Sediment 1+ URATE Urine Bacteria 1+ Urine Mucus 0 SEEN Radiography Diagnostic Testing: Clinical Impression(s) from Imaging Studies Chest X-Ray 11/06/21 18:35 IMPRESSION: There are no acute findings. Electronically Signed: Jamar Sue MD at 18:53 EDT Reading Location ID and State: [facility] / [place] , Service support , Discharge Plan Triage Chief Complaint: Chest Pain ED Midlevel Provider: Gustavo Valente ED Provider: Terry Arzate Dx/Rx/DC Orders Clinical Impression: Chest pain, non-cardiac, Anxiety, Breathlessness on exertion, Atherosclerotic heart disease of [place] coronary artery without angina pectoris, Urinary tract infection Instructions: ED Anxiety Reaction, ED Dyspnea Prescriptions: New nitrofurantoin monohyd/m-cryst [nitrofurantoin monohyd/m-cryst] 100 MG capsule 100 mg PO Q12 Qty: 10 RF: 0 No Action glipizide 10 mg tablet extended release 24hr 10 mg PO BID RF: 0 clopidogrel [Plavix] 75 mg tablet 75 mg PO DAILY Qty: 90 RF: 3 carvedilol 12.5 mg tablet 12.5 mg PO BID Qty: 180 RF: 3 Hold Instructions: Resume on 07/22/21. tizanidine 4 MG tablet 4 mg PO QHS RF: 0 aspirin 81 mg capsule 81 mg PO DAILY Qty: 60 RF: 3 hydroxyzine HCl 25 mg tablet 25 mg PO TID PRN (Reason: anxiety) Qty: 20 RF: 0 promethazine 25 mg tablet 25 mg PO TID PRN (Reason: nausea and vomiting) Qty: 21 RF: 0 Cepacol Sore Throat (brian-men) 15-3.6 mg Lozenge 1 nigel mucous membrane Q2H PRN PRN (Reason: SORE THROAT) Qty: 0 RF: 0 tramadol 50 mg Tablet 50 mg PO TID PRN PRN (Reason: Pain Score 1-10) Qty: 30 RF: 0 potassium chloride 10 mEq tablet extended release 20 meq PO DAILY Qty: 60 RF: 0 furosemide 40 mg Tablet 40 mg PO DAILY Qty: 60 RF: 0 ondansetron 4 mg tablet,disintegrating 4 mg PO Q8H Qty: 20 RF: 0 oxycodone-acetaminophen [Percocet] 5-325 mg tablet 1 tab PO Q8H PRN (Reason: pain) 3 Days Qty: 10 RF: 0 isosorbide mononitrate 30 mg tablet extended release 24 hr 30 mg PO DAILY Qty: 90 RF: 3 Hold Instructions: Resume on 07/22/21. lisinopril 20 mg tablet 20 mg PO DAILY Qty: 90 RF: 3 Hold Instructions: Resume on 07/22/21. atorvastatin 80 mg tablet 80 mg PO QHS Qty: 90 RF: 3 Farxiga 10 mg tablet 10 mg PO DAILY Qty: 90 RF: 3 Primary Care Provider: Margo Tatum Referrals: Margo Tatum DO [Primary Care Provider] - 3-5 Days if not improving Print Language: Hungarian Disposition Disposition: Home, Self Care
[2021-11-06 18:46] VITALS: PULSE 84; RESP 16; RESP 18; O2SAT 98
[2021-11-06] MEDS: Albuterol 2.5 MG/3 ML VIAL.NEB. INHALATION (18:46)
[2021-11-06] MEDS: Ipratropium/Albuterol Sulfate 3 ML AMPUL.NEB INHALATION (18:46)
[2021-11-06 18:58] LABS: Anion Gap 7 (5-15); BUN 20 mg/dL (7-18); BUN/Creat Ratio 18.3 RATIO (10-20); Calcium,Total 9.2 mg/dL (8.5-10.1); Chloride 113 mmol/L (98-107); Creatinine, Serum 1.09 mg/dL (0.55-1.02); EST Glomerular Filtration Rate 56 mL/min (>60); Est Glom Filt Rate - Afr Amer 68 mL/min (>60); Estimated Creatinine Clearance 52.73 ml/min; Glucose 124 mg/dL (74-106); Potassium 3.9 mmol/L (3.5-5.1); Sodium Level 142 mmol/L (136-145); Troponin-I HS (w/2H Reflex) 4 pg/mL (3.0-54.0)
--- NOTE | 2021-11-06 19:07 | CPS ---
x1 Albuterol given to pt. in ER as well
[2021-11-06 19:31] LABS: Absolute Lymphocyte Count 1.86 X10^3/uL (0.83-4.51); Basophil# 0.01 X10^3/uL; Basophil% 0.2 % (0-1); Eosinophil# 0.05 X10^3/uL; Eosinophils% 0.8 % (0-5); Hematocrit 32.5 % (37-47); Hemoglobin 10.9 g/dL (12.0-15.0); Lymphocyte # 1.86 X10^3/ul (0.83-4.51); Lymphocyte % 29.7 % (19-41); Mean Corp Hgb Conc 33.5 g/dL (32-36); Mean Corpuscular Hgb 31.2 pg (27.0-32.0); Mean Corpuscular Volume 93.1 fL (81-99); Mean Platelet Vol. 9.7 fl (6.2-12.0); Monocyte# 0.34 X10^3/uL; Monocyte% 5.4 % (0-10); NRBC Flagged by Analyzer 0 % (0-5); Neutrophil % 63.7 % (47-70); Platelet Count 222 K/mm3 (150-450); RBC Distribution Width CV 14.4 % (11.6-14.6); RBC Distribution Width SD 48.6 fl (35.1-43.9); Red Blood Count 3.49 M/mm3 (4.2-5.4); White Blood Count 6.3 K/mm3 (4.4-11.0)
[2021-11-06 19:51] LABS: BNP,B-Type NATRIURETIC PEPTIDE 204.9 pg/mL (0-100)
[2021-11-06 20:03] LABS: Mucous, Urine 0 SEEN /hpf (<or=2+)
[2021-11-06 20:05] LABS: Color, Urine Yellow (Yellow); Glucose, Dipstick 1000 mg/dl (Normal); Ketone-Dipstick Negative (Negative); Leukocyte Esterase-Dipstick 100 /ul (Negative); Nitrite-Dipstick Positive (Negative); Occult Blood-Urine 150 /ul (Negative); Protein-Dipstick 30 mg/dl (Negative); Urine Clarity Sl. Cloudy (Clear); Urine Urobilinogen 4 mg/dl (Normal)
[2021-11-06 20:06] LABS: Urine Bilirubin Dipstick 1 mg/dL (Negative)
[2021-11-06 20:18] LABS: Red Blood Cells-Urine 10-25 SEEN /hpf (0-5); Squamous Epithelial Cells - UA 0-5 SEEN /hpf (5-10); White Blood Cells 25-50 SEEN /hpf (0-5)
[2021-11-06 20:19] LABS: Amorphous Sediment 1+ URATE; Bacteria 1+ /hpf (None Seen)
[2021-11-06 20:38] LABS: Reflex Troponin-HS? (from REC) Y
[2021-11-06] MEDS: Nitrofurantoin Macrocrystals 100 MG Capsule PO (20:40)
== END 2021-11-06 20:42 | disposition home or self-care (01) ==
PROVIDERS: Nurse Practitioner; Emergency Provider Emergency Medicine; PCP Family Medicine; Visit Provider Emergency Medicine
DX: R07.89 Other chest pain (principal); J44.9 Chronic obstructive pulmonary disease, unspecified; I11.0 Hypertensive heart disease with heart failure; I42.8 Other cardiomyopathies; I50.22 Chronic systolic (congestive) heart failure; E11.9 Type 2 diabetes mellitus without complications; Z79.4 Long term (current) use of insulin; N39.0 Urinary tract infection, site not specified; R06.09 Other forms of dyspnea; I25.10 Atherosclerotic heart disease of native coronary artery without angina pectoris; E78.5 Hyperlipidemia, unspecified; I25.2 Old myocardial infarction; E66.9 Obesity, unspecified; Z68.34 Body mass index [BMI] 34.0-34.9, adult; Z95.5 Presence of coronary angioplasty implant and graft; Z79.02 Long term (current) use of antithrombotics/antiplatelets; Z79.82 Long term (current) use of aspirin; Z79.84 Long term (current) use of oral hypoglycemic drugs; Z79.899 Other long term (current) drug therapy; Z86.16 Personal history of COVID-19; Z87.891 Personal history of nicotine dependence
CPT/HCPCS: 71045; 80048; 81001; 83880; 84484; 85025; 87428; 93005; 94640; 99251; 99285; G0463

== ENCOUNTER 2021-11-17 04:40 | Emergency (ER) | payer MEDICARE, MEDICAID, SELFPAY ==
[2021-11-17 04:42] VITALS: BP 97/44; PULSE 66; RESP 13; TEMP 36.1; O2SAT 99; BMI 35.4
--- NOTE | 2021-11-17 04:56 | EKG12_ITS ---
Test Reason : SYNCOPE Blood Pressure : / mmHG Vent. Rate : 061 BPM Atrial Rate : 061 BPM P-R Int : 246 ms QRS Dur : 164 ms QT Int : 480 ms P-R-T Axes : 041 -09 038 degrees QTc Int : 483 ms Sinus rhythm with 1st degree A-V block Left bundle branch block Abnormal ECG Confirmed by GUCCI GEE, PAT ([id number]), fashion editor JAYLIN FRANK ([id number]) on 11/18/2021 9:59:52 AM Referred By: PL Confirmed By:PAT DUCKWORTH MD
--- NOTE | 2021-11-17 04:57 | RAD_ITS ---
STUDY: X-RAY - LUMBAR SPINE REASON FOR EXAM: Female, 50 years old. Trauma TECHNIQUE: 3 view(s) of the lumbar spine were obtained. COMPARISON: March 15, 2012, September 08, 2021 abdomen x-ray FINDINGS: Normal lumbar lordosis. There is no substantial scoliosis. There is a normal alignment of the vertebrae. Multilevel spondylosis. There is disc space narrowing and endplate sclerosis at L5-S1. There is a visualize double lead baclofen type pump with the leads in extending proximally at level of T11-12 the termination of a T8. There is then a laminectomy at L5. There is partially visualized calcification in the right upper quadrant suggesting probable renal stone. RAD/Lumbar Spine 2 or 3 Views IMPRESSION: Spinal catheter is detailed above. Postoperative changes right upper quadrant. Findings suggest a 4.5 mm stone in the right kidney and/or summation artifact with bowel. Degenerative changes lower lumbar spine. No apparent acute loss of height or alignment. Electronically Signed: Fabiola Ahmadi MD at 6:50 EDT ,
--- NOTE | 2021-11-17 04:57 | RAD_ITS ---
EXAM: XR Shoulder Min 2 Views RIGHT HISTORY: trauma TECHNIQUE: XR Shoulder Min 2 Views RIGHT COMPARISON: None. LIMITATIONS: None. FINDINGS: Views of the right shoulder were obtained. No acute fracture is identified. No dislocation. RAD/Shoulder min 2 Views IMPRESSION: No acute fracture or dislocation identified. Electronically Signed: Ricki Jacques MD at 6:51 EDT ,
--- NOTE | 2021-11-17 05:01 | EDS_ITS ---
HPI History of Present Illness Chief Complaint: Dizziness Informant: patient Narrative Narrative: Patient complains of orthostatic lightheadedness. She states this started about 2:30 in the morning. She had taken all her blood pressure meds at about 1:00. She takes Lasix in the mornings. But she took lisinopril, carvedilol, and isosorbide at 1 AM. By 2 or 230 she was feeling lightheaded mostly with standing up. She never had chest pain or shortness of breath. She has not been feeling ill recently. No recent change in medicines she states. However, she had been intubated I believe back in August. Her Lasix had been doubled for short time and she had an episode that was very similar to this. She states it felt just the same. Her Lasix is now back to once a day. She has not been getting dyspnea on exertion or orthopnea. She did have an episode of diarrhea yesterday morning but it was a single episode. It was nonbloody nonblack. She feels okay laying down but if she stands up she feels like she has no energy and is slightly lightheaded. When she fell she did hit her shoulder. She denies hitting her head. She states she pulled her back a little bit but it does not hurt that much. Although she fell, she did not lose consciousness [facility] Medical History Atherosclerotic heart disease of [place] coronary artery without angina pectoris Benign hypertension Bilateral interstitial pneumonia Cardiomyopathy, ischemic Chronic low back pain Chronic nausea Chronic pain COPD (chronic obstructive pulmonary disease) COVID-19 virus infection Difficult intubation Former smoker HFrEF (heart failure with reduced ejection fraction) Hirsutism History of non-ST elevation myocardial infarction (NSTEMI) (09/08/21) Hyperglycemia due to type 2 diabetes mellitus Hyperlipidemia Irregular heart beat Kidney stones Left bundle branch block (LBBB) Myocardial infarct Non-ischemic cardiomyopathy Non-ST elevation (NSTEMI) myocardial infarction Nonobstructive atherosclerosis of coronary artery Obesity Seizures Status post insertion of nerve stimulator Syncope Thyroid nodule Type 2 diabetes mellitus Vomiting Home Medications tizanidine 4 mg PO QHS 06/12/20 [History Last Taken 07/16/21] glipizide 10 mg tablet, extended release 24 hr 10 mg PO BID tab 07/11/20 [Hi story Last Taken 07/16/21] aspirin 81 mg PO DAILY #60 cap 05/20/21 [Rx Last Taken 07/16/21] hydroxyzine HCl 25 mg PO TID PRN #20 tab 06/07/21 [Rx Last Taken 07/13/21] clopidogrel 75 mg tablet 75 mg PO DAILY #90 tab 06/08/21 [Rx Last Taken 07/16/21] isosorbide mononitrate 30 mg tablet,extended release 24 hr 30 mg PO DAILY #90 tab 06/29/21 [Rx Last Taken 07/16/21] atorvastatin 80 mg tablet 80 mg PO QHS #90 tab 07/06/21 [Rx Last Taken 07/16/21] lisinopril 20 mg tablet 20 mg PO DAILY #90 tab 07/06/21 [Rx Last Taken 07/16/21] promethazine 25 mg PO TID PRN #21 tab 07/19/21 [Rx Last Taken Unknown] potassium chloride 20 meq PO DAILY #60 tab 09/14/21 [Rx Last Taken Unknown] tramadol 50 mg PO TID PRN PRN #30 tab 09/14/21 [Rx Last Taken Unknown] furosemide 40 mg PO DAILY #60 tab 09/16/21 [Rx Last Taken Unknown] ondansetron 4 mg PO Q8H #20 tab 09/20/21 [Rx Last Taken Unknown] oxycodone-acetaminophen [Percocet] 1 tab PO Q8H PRN 3 Days #10 tab 09/20/21 [Rx Last Taken Unknown] carvedilol 12.5 mg tablet 12.5 mg PO BID #180 tab 10/15/21 [Rx Last Taken Unknown] dapagliflozin 10 mg tablet 10 mg PO DAILY #90 tab 10/29/21 [Rx Last Taken Unknown] empagliflozin 10 mg tablet 10 mg PO DAILY 11/09/21 [History Last Taken Unknown] insulin glargine 100 unit/mL (3 mL) subcutaneous pen 40 unit SUBCUT DAILY ml 11/09/21 [History Last Taken Unknown] omeprazole 20 mg capsule,delayed release 20 mg PO DAILY 11/09/21 [History Last Taken Unknown] Allergy/AdvReac Type Severity Reaction Status Date / Time amoxicillin trihydrate AdvReac Vomiting Verified 11/17/21 04:42 [From Augmentin] potassium clavulanate AdvReac Vomiting Verified 11/17/21 04:42 [From Augmentin] Family History Father Myocardial infarction Cancer prostate, leukemia Agent orange exposure Diabetes Sister Diabetes COPD (chronic obstructive pulmonary disease) Surgical History History of appendectomy History of back surgery History of cholecystectomy (1991) History of cholecystectomy History of coronary artery stent placement (05/19/21) History of hysterectomy History of laparoscopy History of left heart catheterization (09/14/21) History of tonsillectomy Social History household members: significant other Smoking Status: Former smoker how long ago did patient quit smokin alcohol intake: current alcohol intake frequency: holidays/special occasions only substance use type: does not use caffeine: Yes ROS ROS ED Constitutional Constitutional ED: Denies chills, fever(s) or sweats Eyes Eyes: Denies blurry vision ENT ENT ED: Denies rhinorrhea Cardiovascular Cardiovascular: Denies chest pain or palpitations Respiratory/Chest Respiratory/Chest: Denies cough or dyspnea Gastrointestinal Gastrointestinal: Denies abdominal pain, nausea or vomiting Genitourinary Genitourinary ED: Denies dysuria or hematuria Musculoskeletal Musculoskeletal: Reports arthralgias and back pain; Denies neck pain Integumentary Denies rash Neurologic Neurologic: Denies headache(s), paresthesias or weakness Endocrine Endocrinology: Denies polydipsia or polyuria Allergic/Immunologic Allergic/Immunologic ED: Denies urticaria EXAM Physical Exam Const Vital Signs: 11/17/21 04:42 11/17/21 04:46 11/17/21 06:14 Temperature 97.0 F L Temperature Source Temporal Pulse Rate 66 62 Respiratory Rate 13 16 Respiratory Effort Normal Respiratory Pattern Normal Blood Pressure 97/44 L 98/48 L Blood Pressure Mean 61 64 Pulse Ox 99 97 Oxygen Delivery Method Room Air Room Air Positive well nourished and well developed Constitutional Narrative: Patient awake alert and appropriate. She gives a good consistent history. She is able to pull out her phone dilated and call people without difficulty. She feels okay just sitting in bed. General Appearance ED: well developed and NAD; Negative for cyanotic or diaphoretic HEENT HEENT Narrative: Mildly dry mucous membranes Negative for trauma Eyes General Eye ED: Negative for pale conjunctiva or scleral icterus Neck no JVD Chest Wall inspection of chest normal Resp normal respiratory effort and clear to auscultation bilaterally Effort and Inspection: Negative for pain with movement Auscultation: Negative for rales, rhonchi or wheezes Cardio regular rate and regular rhythm GI normal to inspection, nondistended, normoactive bowel sounds and non-tender Palpation: soft Back/Spine no CVA tenderness Back/Spine Narrative: She does have some mild soreness toward mostly the left paraspinal muscles. She has a stimulator some sort placed in there and feels that she probably rolled on top of it. Extremity Extremity Narrative: Mild tenderness to the proximal humerus laterally. No clavicular or scapular tenderness. Her range of motion is still preserved. I feel no crepitance. Neuro oriented x3 Sensorium / Orientation: alert Psych mental status grossly normal Skin no rashes or lesions noted MDM MDM MDM Narrative Medical decision making narrative: Patient's CBC shows some mild anemia. Electrolytes are overall unremarkable. However, her glucose is up. She states she can get this down. Also her creatinine is just a little bit higher than baseline. Troponin was negative. Lactate is minimally up which I am not surprised with her blood pressure being down. Patient's repeat blood pressures are 98/48. When I look back her baseline is about 100-115. She feels better. She feels this is related to taking all of her medicines at one time. I recommend she might want to divide these and not take them at the same time. Her states he has been pushing for that. She takes them all at 1 time because it is easier with work. We did get her up and walk here. She felt better. Plan will be to go home. We discussed reasons to return. Lab Data Attestation: I reviewed the patient's lab results. Labs: Laboratory Results - last 24 hr 11/17/21 11/17/21 11/17/21 04:29 04:29 05:15 WBC 4.9 RBC 3.51 L Hgb 10.7 L Hct 33.3 L MCV 94.9 MCH 30.5 MCHC 32.1 RDW Std Deviation 50.0 H RDW Coeff of Tomi 14.6 Plt Count 230 MPV 9.7 Immature Gran % (Auto) 0.200 Neut % (Auto) 48.2 Lymph % (Auto) 44.3 H Keith % (Auto) 6.1 Eos % (Auto) 1.0 Baso % (Auto) 0.2 Absolute Neuts (auto) 2.4 Absolute Lymphs (auto) 2.16 Nucleated RBC % 0 Sodium 140 Potassium 3.6 Chloride 109 H Carbon Dioxide 25.0 Anion Gap 6 BUN 22 H Creatinine 1.25 H Estim Creat Clear Calc 45.98 Est GFR (MDRD) Af Amer 58 L Est GFR (MDRD) Non-Af 48 L BUN/Creatinine Ratio 17.6 Glucose 305 H Lactic Acid 2.1 H* Calcium 8.9 Troponin I High Sens 9 EKG Initial EKG: Comments: EKG done for syncopal episode read by me shows normal sinus rhythm with first-degree AV block and left bundle branch block. No ectopy. No acute ST elevation or depression. NV interval, QRS duration and QTc are all a bit long. However, this EKG is similar to 06 November of this year Discharge Plan Triage Chief Complaint: Dizziness ED Provider: Alek Jc Dx/Rx/DC Orders Clinical Impression: Near syncope, Medication reaction, Hypotension Instructions: ED Low Blood Pressure, All Causes, ED Fainting, Uncertain Cause Prescriptions: No Action glipizide 10 mg tablet extended release 24hr 10 mg PO BID RF: 0 clopidogrel [Plavix] 75 mg tablet 75 mg PO DAILY Qty: 90 RF: 3 carvedilol 12.5 mg tablet 12.5 mg PO BID Qty: 180 RF: 3 Hold Instructions: Resume on 07/22/21. Jardiance 10 mg tablet 10 mg PO DAILY RF: 0 insulin glargine [Lantus Solostar U-100 Insulin] 100 unit/mL (3 mL) insulin pen 40 unit subcut DAILY RF: 0 omeprazole 20 mg capsule,delayed release(DR/EC) 20 mg PO DAILY RF: 0 tizanidine 4 MG tablet 4 mg PO QHS RF: 0 aspirin 81 mg capsule 81 mg PO DAILY Qty: 60 RF: 3 hydroxyzine HCl 25 mg tablet 25 mg PO TID PRN (Reason: anxiety) Qty: 20 RF: 0 promethazine 25 mg tablet 25 mg PO TID PRN (Reason: nausea and vomiting) Qty: 21 RF: 0 tramadol 50 mg Tablet 50 mg PO TID PRN PRN (Reason: Pain Score 1-10) Qty: 30 RF: 0 potassium chloride 10 mEq tablet extended release 20 meq PO DAILY Qty: 60 RF: 0 furosemide 40 mg Tablet 40 mg PO DAILY Qty: 60 RF: 0 ondansetron 4 mg tablet,disintegrating 4 mg PO Q8H Qty: 20 RF: 0 oxycodone-acetaminophen [Percocet] 5-325 mg tablet 1 tab PO Q8H PRN (Reason: pain) 3 Days Qty: 10 RF: 0 isosorbide mononitrate 30 mg tablet extended release 24 hr 30 mg PO DAILY Qty: 90 RF: 3 Hold Instructions: Resume on 07/22/21. lisinopril 20 mg tablet 20 mg PO DAILY Qty: 90 RF: 3 Hold Instructions: Resume on 07/22/21. atorvastatin 80 mg tablet 80 mg PO QHS Qty: 90 RF: 3 Farxiga 10 mg tablet 10 mg PO DAILY Qty: 90 RF: 3 Primary Care Provider: Margo Tatum Referrals: Margo Tatum DO [Primary Care Provider] - 3-5 Days Disposition Disposition: Home, Self Care
[2021-11-17 05:06] LABS: Absolute Lymphocyte Count 2.16 X10^3/uL (0.83-4.51); Absolute Neutrophil Count 2.4 X10^3/uL (2.0-7.7); Basophil# 0.01 X10^3/uL; Basophil% 0.2 % (0-1); Eosinophil# 0.05 X10^3/uL; Hematocrit 33.3 % (37-47); Hemoglobin 10.7 g/dL (12.0-15.0); Lymphocyte # 2.16 X10^3/ul (0.83-4.51); Lymphocyte % 44.3 % (19-41); Mean Corp Hgb Conc 32.1 g/dL (32-36); Mean Corpuscular Hgb 30.5 pg (27.0-32.0); Mean Corpuscular Volume 94.9 fL (81-99); Mean Platelet Vol. 9.7 fl (6.2-12.0); Monocyte% 6.1 % (0-10); NRBC Flagged by Analyzer 0 % (0-5); Neutrophil # 2.35 X10^3/uL (2.7-7.7); Neutrophil % 48.2 % (47-70); Platelet Count 230 K/mm3 (150-450); RBC Distribution Width CV 14.6 % (11.6-14.6); Red Blood Count 3.51 M/mm3 (4.2-5.4); White Blood Count 4.9 K/mm3 (4.4-11.0)
[2021-11-17 05:27] LABS: Anion Gap 6 (5-15); BUN 22 mg/dL (7-18); BUN/Creat Ratio 17.6 RATIO (10-20); Calcium,Total 8.9 mg/dL (8.5-10.1); Chloride 109 mmol/L (98-107); Creatinine, Serum 1.25 mg/dL (0.55-1.02); EST Glomerular Filtration Rate 48 mL/min (>60); Est Glom Filt Rate - Afr Amer 58 mL/min (>60); Estimated Creatinine Clearance 45.98 ml/min; Glucose 305 mg/dL (74-106); Potassium 3.6 mmol/L (3.5-5.1); Sodium Level 140 mmol/L (136-145); Troponin-I HS 9 pg/mL (3.0-54.0)
[2021-11-17 06:04] LABS: Lactic Acid 2.1 mmol/L (0.4-1.9)
[2021-11-17 06:14] VITALS: BP 98/48; PULSE 62; RESP 16; O2SAT 97
[2021-11-17 06:46] VITALS: BP 97/60; PULSE 64; RESP 16; O2SAT 95
[2021-11-17 09:20] LABS: Reflex Lactate? Y
== END 2021-11-17 06:47 | disposition home or self-care (01) ==
PROVIDERS: Emergency Provider Emergency Medicine; PCP Family Medicine; Visit Provider Emergency Medicine
DX: I95.2 Hypotension due to drugs (principal); J44.9 Chronic obstructive pulmonary disease, unspecified; I11.0 Hypertensive heart disease with heart failure; I50.22 Chronic systolic (congestive) heart failure; E11.9 Type 2 diabetes mellitus without complications; Z79.4 Long term (current) use of insulin; R55 Syncope and collapse; T46.4X5A Adverse effect of angiotensin-converting-enzyme inhibitors, initial encounter; T44.7X5A Adverse effect of beta-adrenoreceptor antagonists, initial encounter; T46.3X5A Adverse effect of coronary vasodilators, initial encounter; I25.10 Atherosclerotic heart disease of native coronary artery without angina pectoris; I25.2 Old myocardial infarction; E66.9 Obesity, unspecified; Z68.35 Body mass index [BMI] 35.0-35.9, adult; Z79.02 Long term (current) use of antithrombotics/antiplatelets; Z79.82 Long term (current) use of aspirin; Z79.84 Long term (current) use of oral hypoglycemic drugs; Z79.899 Other long term (current) drug therapy; Z86.16 Personal history of COVID-19; Z87.891 Personal history of nicotine dependence
CPT/HCPCS: 72100; 73030; 80048; 83605; 84484; 85025; 93005; 99285; A4216

== ENCOUNTER 2022-01-24 20:21 | Emergency (ER) | payer MEDICARE, MEDICAID, SELFPAY ==
[2022-01-24] VITALS (7 sets, daily range): BP systolic 125–145; BP diastolic 69–80; PULSE 75–84; RESP 11–16; TEMP 36.7; O2SAT 99–100; BMI 35.6
--- NOTE | 2022-01-24 20:31 | EKG12_ITS ---
Test Reason : CP Blood Pressure : / mmHG Vent. Rate : 086 BPM Atrial Rate : 086 BPM P-R Int : 188 ms QRS Dur : 158 ms QT Int : 426 ms P-R-T Axes : 045 -14 044 degrees QTc Int : 509 ms Normal sinus rhythm Left bundle branch block Abnormal ECG Confirmed by GUCCI GEE, PAT ([id number]), newspaper or periodical editor JAYLIN FRANK ([id number]) on 01/27/2022 8:57:25 AM Referred By: INGRID Confirmed By:PAT DUCKWORTH MD
--- NOTE | 2022-01-24 20:32 | EDS_ITS ---
HPI History of Present Illness Chief Complaint: Chest Pain Detail of Chief Complaint: Chest pain that started around 6 PM Informant: patient Onset/Context/Timing Timing: Intermittent Location: Substernal Narrative Narrative: Patient presents to the emergency department with complaint of chest discomfort that started around 6 PM. Patient states that she had laid down and then started having a coughing fit and then developed pain in her chest. She describes heaviness in her chest neck somebody sitting on her. Discomfort is worse with lying flat. She denies any real radiation of the pain. Patient tells me she has history of a cardiac stent that was placed in May 2021. Patient denies recent illness. She denies fever or cough otherwise. Patient states the pains been intermittent. Prior Similar Symptoms: No CVD Risk Factors: Positive for Hypertension and Diabetes [facility] Medical History Atherosclerotic heart disease of [place] coronary artery without angina pectoris Benign hypertension Bilateral interstitial pneumonia Cardiomyopathy, ischemic Chronic low back pain Chronic nausea Chronic pain COPD (chronic obstructive pulmonary disease) COVID-19 virus infection Difficult intubation Former smoker HFrEF (heart failure with reduced ejection fraction) Hirsutism History of non-ST elevation myocardial infarction (NSTEMI) (09/08/21) Hyperglycemia due to type 2 diabetes mellitus Hyperlipidemia Irregular heart beat Kidney stones Left bundle branch block (LBBB) Myocardial infarct Non-ischemic cardiomyopathy Non-ST elevation (NSTEMI) myocardial infarction Nonobstructive atherosclerosis of coronary artery Obesity Seizures Status post insertion of nerve stimulator Syncope Thyroid nodule Type 2 diabetes mellitus Vomiting Home Medications tizanidine 4 mg tablet 4 mg PO QHS muscle spasms 06/12/20 [History Last Taken 07/16/21] glipizide 10 mg tablet, extended release 24 hr 10 mg PO BID diabetes 07/11/20 [H istory Last Taken 07/16/21] hydroxyzine HCl 25 mg tablet 25 mg PO TID PRN anxiety #20 tabs 06/07/21 [Rx Last Taken 07/13/21] clopidogrel 75 mg tablet (Plavix) 75 mg PO DAILY #90 tabs 06/08/21 [Rx Last Taken 07/16/21] isosorbide mononitrate 30 mg tablet,extended release 24 hr 30 mg PO DAILY #90 tabs 06/29/21 [Rx Last Taken 07/16/21] atorvastatin 80 mg tablet 80 mg PO QHS #90 tabs 07/06/21 [Rx Last Taken 07/16/21] lisinopril 20 mg tablet 20 mg PO DAILY #90 tabs 07/06/21 [Rx Last Taken 07/16/21] promethazine 25 mg tablet 25 mg PO TID PRN nausea and vomiting #21 tabs 07/19/21 [Rx Last Taken Unknown] potassium chloride 10 mEq tablet,extended release 20 meq PO DAILY #60 tabs 09/14/21 [Rx Last Taken Unknown] furosemide 40 mg tablet 40 mg PO DAILY #60 tabs 09/16/21 [Rx Last Taken Unknown] oxycodone-acetaminophen 5 mg-325 mg tablet (Percocet) 1 tab PO Q8H PRN pain 3 days #10 tabs 09/20/21 [Rx Last Taken Unknown] carvedilol 12.5 mg tablet 12.5 mg PO BID #180 tabs 10/15/21 [Rx Last Taken Unknown] dapagliflozin 10 mg tablet (Farxiga) 10 mg PO DAILY this is a dose increase #90 tabs 10/29/21 [Rx Last Taken Unknown] insulin glargine 100 unit/mL (3 mL) subcutaneous pen (Lantus Solostar U-100 Insulin) 10 unit subcut DAILY 11/09/21 [History Last Taken Unknown] omeprazole 20 mg capsule,delayed release 20 mg PO DAILY 11/09/21 [History Last Taken Unknown] naloxegol 25 mg tablet (Movantik) 25 mg PO QAM #30 tabs 12/29/21 [Rx Last Taken Unknown] aspirin 81 mg capsule 81 mg PO DAILY #90 caps 01/06/22 [Rx Last Taken Unknown] Allergy/AdvReac Type Severity Reaction Status Date / Time amoxicillin trihydrate AdvReac Vomiting Verified 01/24/22 20:27 [From Augmentin] potassium clavulanate AdvReac Vomiting Verified 01/24/22 20:27 [From Augmentin] Family History Father Myocardial infarction Cancer prostate, leukemia Agent orange exposure Diabetes Sister Diabetes COPD (chronic obstructive pulmonary disease) Surgical History History of appendectomy History of back surgery History of cholecystectomy (1991) History of coronary artery stent placement (05/19/21) History of hysterectomy History of laparoscopy History of left heart catheterization (09/14/21) History of tonsillectomy Social History household members: significant other Smoking Status: Former smoker how long ago did patient quit smokin alcohol intake: current alcohol intake frequency: holidays/special occasions only substance use type: does not use caffeine: Yes ROS ROS ED Review of Systems ROS Unobtainable: other Constitutional Constitutional ED: Reports lethargy; Denies chills, fever(s), sweats or weight loss Eyes Eyes: Denies blurry vision, change in vision or diplopia ENT ENT ED: Denies rhinorrhea or sore throat Cardiovascular Cardiovascular: Reports chest pain; Denies orthopnea or racing heartbeat Respiratory/Chest Respiratory/Chest: Reports cough; Denies dyspnea, dyspnea on exertion, orthopnea or sputum Gastrointestinal Gastrointestinal: Denies abdominal pain, diarrhea, nausea or vomiting Genitourinary Genitourinary ED: Denies dysuria, hematuria or urinary frequency Musculoskeletal Musculoskeletal: Denies arthralgias, back pain, myalgias or neck pain Integumentary Denies abscess, Abrasions or rash Neurologic Neurologic: Denies headache(s) or weakness Psychiatric Psychiatric: Denies anxiety, depression or suicidal thoughts Endocrine Endocrinology: Denies polydipsia, polyphagia or polyuria Hematologic/Lymphatic Hematologic/Lymphatic: Denies easy bleeding, easy bruising or lymphadenopathy Allergic/Immunologic Allergic/Immunologic ED: Denies mouth swelling, tongue swelling or urticaria EXAM Physical Exam Const Vital Signs: 01/24/22 20:22 01/24/22 20:29 01/24/22 20:41 Temperature 98.0 F Temperature Source Temporal Pulse Rate 84 Respiratory Rate 16 Respiratory Effort Non-Labored Short of Breath Blood Pressure 132/80 H Blood Pressure Mean 97 Pulse Ox 100 99 Oxygen Delivery Method Room Air Room Air 01/24/22 20:52 01/24/22 21:02 01/24/22 21:09 Temperature Temperature Source Pulse Rate 81 81 80 Respiratory Rate Respiratory Effort Blood Pressure 132/80 H 134/75 H 125/69 H Blood Pressure Mean Pulse Ox Oxygen Delivery Method 01/24/22 21:21 08/21/22 22:00 Temperature Temperature Source Pulse Rate 76 75 Respiratory Rate 11 L 12 Respiratory Effort Blood Pressure 125/69 H 145/72 H Blood Pressure Mean 87 96 Pulse Ox 100 100 Oxygen Delivery Method Room Air Room Air Positive well nourished and well developed General Appearance ED: well developed and NAD HEENT Reports TM's clear and moist mucous membranes normocephalic and atraumatic; Negative for trauma or tenderness Tympanic Membrane ED: Yes TM's clear Eyes PERRL and EOMs intact bilaterally General Eye ED: Negative for pale conjunctiva or scleral icterus Neck no lymphadenopathy, supple and no JVD General: Negative for tenderness Chest Wall inspection of chest normal and palpation of chest normal Chest: Negative for tenderness Resp normal respiratory effort and clear to auscultation bilaterally Effort and Inspection: Negative for respiratory distress or pain with movement Auscultation: Negative for rhonchi, wheezes or diminished lung sounds Cardio regular rate, regular rhythm, S1 normal heart sound, S2 normal heart sound and no murmurs Peripheral Pulses: pulses 2+ throughout GI normal to inspection, nondistended, normoactive bowel sounds, soft to palpation, non-tender, non-distended and no masses Back/Spine no CVA tenderness and no thoracic nor lumbar tenderness Extremity normal to inspection General Extremety ED: Negative for edema General Extremity: Negative for edema Neuro oriented x3, CN's II-XII intact bilaterally, no sensory deficits noted and gait normal Sensorium / Orientation: awake, alert, oriented to person, oriented to place and oriented to time Motor Exam: strength 5/5 throughout and strength abnormal Psych mental status grossly normal Skin no rashes or lesions noted and no wounds Heart Score History: Slightly/Non-Suspicious ECG: Nonspecific Repolarization Age: >45 - <65 years Risk Factors: >/= 3 Risk Factors or History of CAD Troponin: </= Normal Limit Score: 4 MDM MDM MDM Narrative Medical decision making narrative: IV line established on arrival. Patient was given aspirin. Patient had sublingual nitro which really did not improve her pain much. She received 4 mg of morphine IV. Patient had good pain relief with that. Patient had a normal troponin and a normal delta troponin. EKG showed a chronic left bundle branch block that is unchanged. D-dimer was normal. Chest x-ray was unremarkable. This point etiology of her pain is unclear however I have low suspicion for cardiac etiology. She has a heart score of 4. Patient will be discharged to home and advised to follow-up with her primary care physician 3 to 5 days. She is advised to return if worsening pain, increasing shortness of breath, exertional symptoms, or condition worsen anyway. Lab Data Attestation: I reviewed the patient's lab results. Labs: Laboratory Results - last 24 hr 01/24/22 01/24/22 01/24/22 20:42 20:42 20:42 WBC 6.4 RBC 4.41 Hgb 13.5 Hct 39.5 MCV 89.6 MCH 30.6 MCHC 34.2 RDW Std Deviation 42.0 RDW Coeff of Tomi 12.8 Plt Count 201 MPV 9.8 Immature Gran % (Auto) 0.300 Neut % (Auto) 49.0 Lymph % (Auto) 43.3 H Harvey % (Auto) 6.1 Eos % (Auto) 1.1 Baso % (Auto) 0.2 Absolute Neuts (auto) 3.2 Absolute Lymphs (auto) 2.78 Nucleated RBC % 0 D-Dimer Quant (PE/DVT) 0.45 Sodium 142 Potassium 3.7 Chloride 112 H Carbon Dioxide 23.0 Anion Gap 7 BUN 22 H Creatinine 0.98 Estim Creat Clear Calc 57.99 Est GFR (MDRD) Af Amer 77 Est GFR (MDRD) Non-Af 64 BUN/Creatinine Ratio 22.5 H Glucose 166 H Calcium 8.9 Troponin I High Sens 9 Lipase 284 01/24/22 01/24/22 22:40 22:40 WBC RBC Hgb Hct MCV MCH MCHC RDW Std Deviation RDW Coeff of Tomi Plt Count MPV Immature Gran % (Auto) Neut % (Auto) Lymph % (Auto) Harvey % (Auto) Eos % (Auto) Baso % (Auto) Absolute Neuts (auto) Absolute Lymphs (auto) Nucleated RBC % D-Dimer Quant (PE/DVT) Sodium Potassium Chloride Carbon Dioxide Anion Gap BUN Creatinine Estim Creat Clear Calc Est GFR (MDRD) Af Amer Est GFR (MDRD) Non-Af BUN/Creatinine Ratio Glucose Calcium Troponin I High Sens Cancelled 10 Lipase Radiography Diagnostic Testing: Clinical Impression(s) from Imaging Studies Chest X-Ray 01/24/22 20:44 IMPRESSION: There are no acute findings. Electronically Signed: Jamar Sue MD at 21:14 EDT Reading Location ID and State: [facility] / [place] , Service support , View chest x-ray obtained interpreted by myself as no acute disease process. Radiology in agreement. EKG Initial EKG: Attestation: I personally reviewed and interpreted this EKG as follows: Comments: Sinus rhythm with a rate of 86 bpm with a left bundle branch block Prior EKG tracings: available for review Prior: Unchanged Discharge Plan Triage Chief Complaint: Chest Pain ED Provider: Allen Meraz Dx/Rx/DC Orders Clinical Impression: Chest pain Instructions: ED Chest Pain, Uncertain Cause Prescriptions: No Action glipizide 10 mg tablet extended release 24hr 10 mg PO BID Label Comments: take 1 tablet by mouth twice a day clopidogrel [Plavix] 75 mg tablet 75 mg PO DAILY Qty: 90 3RF carvedilol 12.5 mg tablet 12.5 mg PO BID Qty: 180 3RF Hold Instructions: Resume on 07/22/21. insulin glargine [Lantus Solostar U-100 Insulin] 100 unit/mL (3 mL) insulin pen 10 unit subcut DAILY omeprazole 20 mg capsule,delayed release(DR/EC) 20 mg PO DAILY Movantik 25 mg tablet 25 mg PO QAM Qty: 30 2RF Rx Instructions: must be taken on empty stomach; no food 1 hr after or 2-3 hrs before dose tizanidine 4 MG tablet 4 mg PO QHS hydroxyzine HCl 25 mg tablet 25 mg PO TID PRN (Reason: anxiety) Qty: 20 0RF promethazine 25 mg tablet 25 mg PO TID PRN (Reason: nausea and vomiting) Qty: 21 0RF potassium chloride 10 mEq tablet extended release 20 meq PO DAILY Qty: 60 0RF furosemide 40 mg Tablet 40 mg PO DAILY Qty: 60 0RF oxycodone-acetaminophen [Percocet] 5-325 mg tablet 1 tab PO Q8H PRN (Reason: pain) 3 Days Qty: 10 0RF isosorbide mononitrate 30 mg tablet extended release 24 hr 30 mg PO DAILY Qty: 90 3RF Hold Instructions: Resume on 07/22/21. lisinopril 20 mg tablet 20 mg PO DAILY Qty: 90 3RF Hold Instructions: Resume on 07/22/21. atorvastatin 80 mg tablet 80 mg PO QHS Qty: 90 3RF Farxiga 10 mg tablet 10 mg PO DAILY Qty: 90 3RF aspirin 81 mg capsule 81 mg PO DAILY Qty: 90 3RF Primary Care Provider: Margo Tatum Referrals: Margo Tatum DO [Primary Care Provider] - 3-5 Days Disposition Disposition: Home, Self Care
--- NOTE | 2022-01-24 20:44 | RAD_ITS ---
STUDY: X-RAY CHEST REASON FOR EXAM: Female, 51 years old. chest pain TECHNIQUE: XR Chest 1 View COMPARISON: 4.7.22 FINDINGS: Loop recorder noted. Normal size heart. Normal mediastinum and tony. Normal visualized pulmonary arteries. Normal visualized aortic arch and descending thoracic aorta. Metallic leads in the spinal canal may suggest spinal stimulator leads. There are diffuse degenerative changes of the visualized thoracic spine. There is degenerative osteoarthritis of the bilateral shoulders. There is no demonstrated abnormality of the visualized soft tissue structures of the upper abdomen. RAD/Chest 1 View (Portable) IMPRESSION: There are no acute findings. Electronically Signed: Jamar Sue MD at 21:14 EDT ,
[2022-01-24] MEDS: Nitroglycerin SL (ED/IMG/CATH) 0.4 MG TABLET SL ×3 (20:52→21:09)
[2022-01-24] MEDS: 0.9% Normal Saline 1,000 ML 150 ML IV (20:53)
[2022-01-24 20:54] LABS: Absolute Lymphocyte Count 2.78 X10^3/uL (0.83-4.51); Absolute Neutrophil Count 3.2 X10^3/uL (2.0-7.7); Basophil# 0.01 X10^3/uL; Basophil% 0.2 % (0-1); Eosinophil# 0.07 X10^3/uL; Eosinophils% 1.1 % (0-5); Hematocrit 39.5 % (37-47); Hemoglobin 13.5 g/dL (12.0-15.0); Lymphocyte # 2.78 X10^3/ul (0.83-4.51); Lymphocyte % 43.3 % (19-41); Mean Corp Hgb Conc 34.2 g/dL (32-36); Mean Corpuscular Hgb 30.6 pg (27.0-32.0); Mean Corpuscular Volume 89.6 fL (81-99); Mean Platelet Vol. 9.8 fl (6.2-12.0); Monocyte# 0.39 X10^3/uL; Monocyte% 6.1 % (0-10); NRBC Flagged by Analyzer 0 % (0-5); Neutrophil # 3.15 X10^3/uL (2.7-7.7); Platelet Count 201 K/mm3 (150-450); RBC Distribution Width CV 12.8 % (11.6-14.6); Red Blood Count 4.41 M/mm3 (4.2-5.4); White Blood Count 6.4 K/mm3 (4.4-11.0)
[2022-01-24 21:04] LABS: D-Dimer Quantitative (DVT/PE) 0.45 FEU/ug/m (0.27-0.49)
[2022-01-24 21:08] LABS: Anion Gap 7 (5-15); BUN 22 mg/dL (7-18); BUN/Creat Ratio 22.5 RATIO (10-20); Calcium,Total 8.9 mg/dL (8.5-10.1); Chloride 112 mmol/L (98-107); Creatinine, Serum 0.98 mg/dL (0.55-1.02); EST Glomerular Filtration Rate 64 mL/min (>60); Est Glom Filt Rate - Afr Amer 77 mL/min (>60); Estimated Creatinine Clearance 57.99 ml/min; Glucose 166 mg/dL (74-106); Lipase 284 U/L (73-393); Potassium 3.7 mmol/L (3.5-5.1); Sodium Level 142 mmol/L (136-145); Troponin-I HS (w/2H Reflex) 9 pg/mL (3.0-54.0)
[2022-01-24] MEDS: Morphine 4 MG/ML Syringe IV (21:24)
[2022-01-24 22:48] LABS: Reflex Troponin-HS? (from REC) Y
[2022-01-24 23:50] LABS: Troponin-I HS 10 pg/mL (3.0-54.0)
[2022-01-25 00:01] VITALS: BP 151/63; PULSE 79; RESP 16; O2SAT 98
== END 2022-01-25 00:04 | disposition home or self-care (01) ==
PROVIDERS: Emergency Provider Emergency Medicine; PCP Family Medicine; Visit Provider Emergency Medicine
DX: R07.9 Chest pain, unspecified (principal); J44.9 Chronic obstructive pulmonary disease, unspecified; I11.0 Hypertensive heart disease with heart failure; I50.22 Chronic systolic (congestive) heart failure; I42.8 Other cardiomyopathies; E11.9 Type 2 diabetes mellitus without complications; Z79.4 Long term (current) use of insulin; I25.10 Atherosclerotic heart disease of native coronary artery without angina pectoris; I44.7 Left bundle-branch block, unspecified; I25.2 Old myocardial infarction; E78.5 Hyperlipidemia, unspecified; Z95.5 Presence of coronary angioplasty implant and graft; Z79.82 Long term (current) use of aspirin; Z79.84 Long term (current) use of oral hypoglycemic drugs; Z79.891 Long term (current) use of opiate analgesic; Z79.899 Other long term (current) drug therapy; Z86.16 Personal history of COVID-19; Z87.891 Personal history of nicotine dependence
CPT/HCPCS: 71045; 80048; 83690; 84484; 85025; 85379; 93005; 96361; 96374; 99285; J7030; A4216

== ENCOUNTER → 2022-02-24 | Outpatient (CLI) | payer MEDICARE, MEDICAID, SELFPAY ==
--- NOTE | 2022-02-24 12:50 | RAD_ITS ---
STUDY: X-RAY CHEST REASON FOR EXAM: Female, 51 years old. SOB, Cough TECHNIQUE: Single frontal view of the chest. COMPARISON: 01/24/2022 FINDINGS: Electronic devices been removed from the chest. Intraspinal electrodes are unchanged at the level of the mid thoracic spine. The lungs are clear and expanded. There is no demonstrated pleural abnormality. Normal size heart. Normal mediastinum and tony. Normal visualized pulmonary arteries. Normal visualized aortic arch and descending thoracic aorta. Slight anterior wedging mid thoracic spine. Normal visualized ribs, clavicles, and shoulders. There is no demonstrated abnormality of the visualized soft tissue structures of the upper abdomen. RAD/Chest PA and Lateral IMPRESSION: No acute disease Electronically Signed: Oscar Logan MD at 23:51 EDT ,
[2022-02-24 13:43] LABS: Absolute Lymphocyte Count 2.98 X10^3/uL (0.83-4.51); Absolute Neutrophil Count 3.3 X10^3/uL (2.0-7.7); Basophil# 0.02 X10^3/uL; Basophil% 0.3 % (0-1); Eosinophil# 0.07 X10^3/uL; Hematocrit 43.7 % (37-47); Hemoglobin 14.3 g/dL (12.0-15.0); Lymphocyte # 2.98 X10^3/ul (0.83-4.51); Lymphocyte % 43.1 % (19-41); Mean Corp Hgb Conc 32.7 g/dL (32-36); Mean Corpuscular Hgb 30.1 pg (27.0-32.0); Mean Platelet Vol. 9.4 fl (6.2-12.0); Monocyte% 7.2 % (0-10); NRBC Flagged by Analyzer 0 % (0-5); Neutrophil # 3.33 X10^3/uL (2.7-7.7); Neutrophil % 48.3 % (47-70); Platelet Count 273 K/mm3 (150-450); RBC Distribution Width CV 14.4 % (11.6-14.6); RBC Distribution Width SD 48.5 fl (35.1-43.9); Red Blood Count 4.75 M/mm3 (4.2-5.4); White Blood Count 6.9 K/mm3 (4.4-11.0)
[2022-02-24 13:55] LABS: BNP,B-Type NATRIURETIC PEPTIDE 15.7 pg/mL (0-100)
[2022-02-24 14:07] LABS: Anion Gap 7 (5-15); BUN 25 mg/dL (7-18); BUN/Creat Ratio 27.2 RATIO (10-20); Calcium,Total 9.8 mg/dL (8.5-10.1); Chloride 108 mmol/L (98-107); Creatinine, Serum 0.92 mg/dL (0.55-1.02); EST Glomerular Filtration Rate 68 mL/min (>60); Est Glom Filt Rate - Afr Amer 83 mL/min (>60); Glucose 161 mg/dL (74-106); Sodium Level 138 mmol/L (136-145); T4 Free Direct 1.12 ng/dL (0.76-1.46); Thyroid Stim Hormone (TSH) 0.01 uIU/mL (0.358-3.74)
== END | disposition home or self-care (01) ==
LOC: RAD 12:48
PROVIDERS: PCP Family Medicine; Referring Provider Nurse Practitioner Family; Visit Provider Nurse Practitioner Family
DX: R06.02 Shortness of breath (principal); I11.0 Hypertensive heart disease with heart failure; I50.20 Unspecified systolic (congestive) heart failure; R05.9 Cough, unspecified; R00.2 Palpitations; I25.5 Ischemic cardiomyopathy; I44.7 Left bundle-branch block, unspecified; E78.5 Hyperlipidemia, unspecified; E05.90 Thyrotoxicosis, unspecified without thyrotoxic crisis or storm; Z95.5 Presence of coronary angioplasty implant and graft
CPT/HCPCS: 36415; 71046; 80048; 83880; 84439; 84443; 85025

== ENCOUNTER → 2022-03-09 | Outpatient (CLI) | payer MEDICARE, MEDICAID, SELFPAY ==
[2022-02-26 14:11] VITALS: BMI 35.5
--- NOTE | 2022-03-09 14:35 | ECHOD_ITS ---
Reason For Study: DYSPNEA Procedure This was a 2D Doppler, Color Flow transthoracic echocardiogram. Exam performed in department. Left Ventricle Mildly dilated left ventricle. Moderately severe segmental systolic dysfunction (see wall motion). The estimated ejection fraction is 30 %. Mid-Inferior: Akinetic. Infero-Basal: Akinetic. Basal inferoseptal: Akinetic. There is moderate to severe global hypokinesis of the left ventricle. Right Ventricle Normal RV size. Normal systolic function. Atria Normal left atrium. Normal right atrium. Mitral Valve Normal mitral valve. Tricuspid Valve Normal tricuspid valve. Aortic Valve Trisinus/trileaflet aortic valve. Pulmonic Valve Normal pulmonic valve. Great Vessels Normal aortic root. The pulmonary artery is normal size. Normal inferior vena cava. Pericardium/Pleural No pericardial effusion. MMode/2D Measurements & Calculations LVIDd: 5.8 cm IVSd: 1.4 cm Ao root diam: 3.3 cm LVIDs: 4.6 cm LVPWd: 1.6 cm RVDd: 3.1 cm FS: 20.6 % LAV(MOD-sp4): 32.5 ml LVAd ap4: 36.6 cm2 SV(MOD-sp4): 37.9 ml LVLd ap4: 8.0 cm EDV(MOD-sp4): 133.4 ml EDV(sp4-el): 141.9 ml LVAs ap4: 29.7 cm2 LVLs ap4: 7.5 cm ESV(MOD-sp4): 95.5 ml ESV(sp4-el): 100.2 ml EF(MOD-sp4): 28.4 % EF(sp4-el): 29.4 % SV(sp4-el): 41.7 ml LA A4 area: 13.8 cm2 LA dimension(2D): 4.2 cm RA A4 area: 11.8 cm2 Doppler Measurements & Calculations MV E max keven: 74.9 cm/sec MV V2 max: 127.3 cm/sec Ao V2 max: 130.6 cm/sec MV max P.5 mmHg Ao max P.8 mmHg MV V2 mean: 84.7 cm/sec Ao V2 mean: 84.8 cm/sec MV mean P.2 mmHg Ao mean P.4 mmHg MV V2 VTI: 30.7 cm Ao V2 VTI: 28.1 cm LV V1 max: 94.9 cm/sec MR max keven: 472.9 cm/sec PA V2 max: 114.5 cm/sec LV V1 max P.6 mmHg MR max P.4 mmHg PA V2 mean: 76.6 cm/sec LV V1 mean P.8 mmHg LV V1 mean: 61.3 cm/sec LV V1 VTI: 17.7 cm ECHO/Echo Complete Interpretation Summary Mildly dilated left ventricle. Moderately severe segmental systolic dysfunction (see wall motion). The estimated ejection fraction is 30 %. Compared to previous study, the left ventricular systolic function is the same. . Ordering Physician: Lisha Ibarra Referring Physician: Cr Ho Performed By: Lisha Ruvalcaba RCS
== END | disposition home or self-care (01) ==
LOC: CVS 14:35
PROVIDERS: PCP Family Medicine; Referring Provider Internal Medicine Cardiovascular Disease; Visit Provider Internal Medicine Cardiovascular Disease
DX: I25.5 Ischemic cardiomyopathy (principal); I50.20 Unspecified systolic (congestive) heart failure; I25.10 Atherosclerotic heart disease of native coronary artery without angina pectoris
CPT/HCPCS: 93306

== ENCOUNTER 2022-04-05 16:03 | Emergency (ER) | payer MEDICARE, MEDICAID, SELFPAY ==
[2022-02-26 14:11] VITALS: BMI 35.5
[2022-04-05 16:03] VITALS: BP 125/80; PULSE 92; RESP 18; TEMP 36.8; O2SAT 95; BMI 36.7
--- NOTE | 2022-04-05 16:26 | ED.VIS.CHEST ---
HPI History of Present Illness Chief Complaint: Chest Pain Informant: patient Onset/Context/Timing Onset: Today Activity at onset: sudden Timing: Continuous Quality: Positive for Tightness and - (Squeezing) Location: Substernal Worsened By: Exertion Relieved By: Rest Associated Symptoms: Positive for Nausea, Dyspnea, Cough, Lightheadedness and Palpitations; Negative for Vomiting, Diaphoresis, Fever or Acid Reflux Narrative Narrative: Chest pain that began today. Patient states she was loading groceries into her car when the pain began. Patient states it felt like a tightness and squeezing in her chest. Patient states it is mainly over the substernal area. Patient states it is worse with any activities. Patient states it is better with rest. Patient states she had a syncopal episode that lasted proxy 1 to 2 minutes. Patient admits to some nausea but denies any vomiting. Patient admits to a cough and shortness of breath. Patient states she felt somewhat lightheaded. Patient also states she felt like her heart was racing at times. CVD Risk Factors: Positive for Diabetes; Negative for Hypertension, Hypercholesterolemia, Family History 1' </=55 or Smoking PE Risk Factors: Negative for Recent Travel/Surgery, Recent Immobilization, Prior DVT or PE, Cancer or OCP + Smoking + >/=35 PFSH PFSH Medical History Atherosclerotic heart disease of [place] coronary artery without angina pectoris Benign hypertension Bilateral interstitial pneumonia Cardiomyopathy, ischemic Chronic low back pain Chronic nausea Chronic pain COPD (chronic obstructive pulmonary disease) COVID-19 virus infection Difficult intubation Former smoker HFrEF (heart failure with reduced ejection fraction) Hirsutism History of non-ST elevation myocardial infarction (NSTEMI) (09/08/21) Hyperglycemia due to type 2 diabetes mellitus Hyperlipidemia Irregular heart beat Kidney stones Left bundle branch block (LBBB) Myocardial infarct Non-ischemic cardiomyopathy Non-ST elevation (NSTEMI) myocardial infarction Nonobstructive atherosclerosis of coronary artery Obesity Paroxysmal atrial fibrillation Seizures Status post insertion of nerve stimulator Syncope Thyroid nodule Type 2 diabetes mellitus Vomiting Home Medications tizanidine 4 mg tablet 4 mg PO QHS muscle spasms 06/12/20 [History Last Taken 07/16/21] glipizide 10 mg tablet, extended release 24 hr 10 mg PO BID diabetes 07/11/20 [History Last Taken 07/16/21] clopidogrel 75 mg tablet (Plavix) 75 mg PO DAILY #90 tabs 06/08/21 [Rx Last Taken 07/16/21] isosorbide mononitrate 30 mg tablet,extended release 24 hr 30 mg PO DAILY #90 tabs 06/29/21 [Rx Last Taken 07/16/21] atorvastatin 80 mg tablet 80 mg PO QHS #90 tabs 07/06/21 [Rx Last Taken 07/16/21] promethazine 25 mg tablet 25 mg PO TID PRN nausea and vomiting #21 tabs 07/19/21 [Rx Last Taken Unknown] potassium chloride 10 mEq tablet,extended release 20 meq PO DAILY #60 tabs 09/14/21 [Rx Last Taken Unknown] furosemide 40 mg tablet 40 mg PO DAILY #60 tabs 09/16/21 [Rx Last Taken Unknown] oxycodone-acetaminophen 5 mg-325 mg tablet (Percocet) 1 tab PO Q8H PRN pain 3 days #10 tabs 09/20/21 [Rx Last Taken Unknown] dapagliflozin 10 mg tablet (Farxiga) 10 mg PO DAILY this is a dose increase #90 tabs 10/29/21 [Rx Last Taken Unknown] insulin glargine 100 unit/mL (3 mL) subcutaneous pen (Lantus Solostar U-100 Insulin) 10 unit subcut DAILY 11/09/21 [History Last Taken Unknown] omeprazole 20 mg capsule,delayed release 20 mg PO DAILY 11/09/21 [History Last Taken Unknown] apixaban 5 mg tablet (Eliquis) 5 mg PO BID #60 tabs 01/27/22 [Rx Last Taken Unknown] naloxegol 25 mg tablet (Movantik) 25 mg PO QAM #30 tabs 02/09/22 [Rx Last Taken Unknown] diphenhydramine 25 mg-acetaminophen 500 mg tablet (Tylenol PM Extra Strength) 2 tab PO QHS PRN Insomnia 02/24/22 [History Last Taken Unknown] hydroxyzine HCl 25 mg tablet 25 mg PO QHS PRN anxiety 02/24/22 [History Last Taken Unknown] melatonin 10 mg tablet 10 mg PO HS PRN Insomnia 02/24/22 [History Last Taken Unknown] sacubitril 49 mg-valsartan 51 mg tablet (Entresto) 1 tab PO BID #60 tabs 02/24/22 [Rx Last Taken Unknown] carvedilol 25 mg tablet 25 mg PO BID #180 tabs 03/11/22 [Rx Last Taken Unknown] Allergy/AdvReac Type Severity Reaction Status Date / Time amoxicillin trihydrate AdvReac Vomiting Verified 04/05/22 16:03 [From Augmentin] potassium clavulanate AdvReac Vomiting Verified 04/05/22 16:03 [From Augmentin] Family History Father Myocardial infarction Cancer prostate, leukemia Agent orange exposure Diabetes Sister Diabetes COPD (chronic obstructive pulmonary disease) Surgical History History of appendectomy History of back surgery History of cholecystectomy (1991) History of coronary artery stent placement (05/19/21) History of hysterectomy History of laparoscopy History of left heart catheterization (09/14/21) History of tonsillectomy Social History household members: significant other Smoking Status: Former smoker how long ago did patient quit smokin alcohol intake: current alcohol intake frequency: holidays/special occasions only substance use type: does not use caffeine: Yes ROS ROS ED Constitutional Constitutional ED: Denies chills or fever(s) Eyes Eyes: Denies blurry vision or change in vision ENT ENT ED: Denies rhinorrhea or sore throat Cardiovascular Cardiovascular: Reports chest pain and palpitations Respiratory/Chest Respiratory/Chest: Reports cough and dyspnea Gastrointestinal Gastrointestinal: Reports nausea; Denies abdominal pain or vomiting Genitourinary Genitourinary ED: Denies dysuria or hematuria Musculoskeletal Musculoskeletal: Reports back pain and neck pain Integumentary Denies abscess or rash Neurologic Neurologic: Denies headache(s) or weakness Allergic/Immunologic Allergic/Immunologic ED: Denies mouth swelling or urticaria EXAM Physical Exam Const Vital Signs: 04/05/22 16:03 04/05/22 16:07 04/05/22 16:36 Temperature 98.3 F Temperature Source Oral Pulse Rate 92 Respiratory Rate 18 Respiratory Pattern Normal Blood Pressure 125/80 H Blood Pressure Mean 95 Pulse Ox 95 Oxygen Delivery Method Room Air Room Air 04/05/22 16:45 04/05/22 18:41 04/05/22 19:47 Temperature Temperature Source Pulse Rate 82 86 76 Respiratory Rate 15 19 H Respiratory Pattern Blood Pressure 125/85 H 133/74 H 155/89 H Blood Pressure Mean 93 111 Pulse Ox 97 98 Oxygen Delivery Method Room Air Positive well nourished, well developed and obese General Appearance ED: well developed and NAD Nutritional Appearance: obese HEENT Reports moist mucous membranes Neck supple and no JVD Chest Wall Chest: tenderness sternum Resp normal respiratory effort and clear to auscultation bilaterally Cardio regular rate and regular rhythm GI normal to inspection, nondistended, normoactive bowel sounds, soft to palpation and non-tender Extremity normal to inspection General Extremety ED: Negative for edema General Extremity: Negative for edema Neuro oriented x3, CN's II-XII intact bilaterally and no sensory deficits noted Sensorium / Orientation: awake and alert Motor Exam: strength 5/5 throughout Psych mental status grossly normal Heart Score History: Slightly/Non-Suspicious ECG: Nonspecific Repolarization Age: >45 - <65 years Risk Factors: 1 or 2 Risk Factors Troponin: </= Normal Limit Score: 3 MDM MDM MDM Narrative Medical decision making narrative: EKG was obtained. On my interpretation, it shows normal sinus rhythm with a rate of 88. [place] interval was within normal limits. QRS interval was slightly prolonged at 162 ms. QTc interval was prolonged at 529 ms. [place] was -13. There is a left bundle branch block pattern noted. There are no acute changes. Portable 1 view chest x-ray was obtained. On my interpretation, lung benavides are clear. There is normal cardiac silhouette. Bony thorax is normal. There is no acute process noted. Radiologist also interpreted the x-ray and agrees. CBC was within normal limits. Basic metabolic profile showed an elevated glucose of 256 but was otherwise within normal limits. Anion gap was normal. Initial high-sensitivity troponin was normal at 8. 2-hour repeat high-sensitivity troponin was normal at 9. Patient has a HEART score of 3. Patient was advised that this is low risk for acute cardiac event. Patient was instructed to follow-up with her primary care physician in 5 to 7 days. Patient was instructed return if worse in any way. Patient understood and was agreeable with the plan. All questions were answered. Lab Data Attestation: I reviewed the patient's lab results. Labs: Laboratory Results - last 24 hr 04/05/22 04/05/22 04/05/22 16:12 16:12 18:59 WBC 6.2 RBC 4.61 Hgb 14.8 Hct 42.3 MCV 91.8 MCH 32.1 H MCHC 35.0 RDW Std Deviation 48.6 H RDW Coeff of Tomi 14.5 Plt Count 209 MPV 9.8 Immature Gran % (Auto) 0.300 Neut % (Auto) 59.8 Lymph % (Auto) 33.2 [place] % (Auto) 5.8 Eos % (Auto) 0.6 Baso % (Auto) 0.3 Absolute Neuts (auto) 3.7 Absolute Lymphs (auto) 2.06 Nucleated RBC % 0 Sodium 141 Potassium 3.5 Chloride 112 H Carbon Dioxide 19.0 L Anion Gap 10 BUN 23 H Creatinine 0.90 Estim Creat Clear Calc 63.14 Est GFR (MDRD) Af Amer 84 Est GFR (MDRD) Non-Af 69 BUN/Creatinine Ratio 25.4 H Glucose 256 H Calcium 9.1 Troponin I High Sens 8 9 Radiography Chest X-Ray - ED: 1 View, Read by ED Physician, Read by Radiologist and No Acute Disease Diagnostic Testing: Clinical Impression(s) from Imaging Studies Chest X-Ray 04/05/22 16:45 IMPRESSION: Normal x-ray examination of the chest. Electronically Signed: Elle Medeiros MD at 18:02 EDT Reading Location ID and State: [id number] / Tel , Service support , EKG Initial EKG: Attestation: I personally reviewed and interpreted this EKG as follows: Interpretation: Sinus Rhythm (88) and LBBB Prior EKG tracings: available for review Prior: Unchanged (01/24/2022) Discharge Plan Triage Chief Complaint: Chest Pain ED Provider: Arjun Ortez Dx/Rx/DC Orders Clinical Impression: Chest pain, Obesity, Type 2 diabetes mellitus, Left bundle branch block (LBBB) Instructions: ED Chest Pain, Uncertain Cause Prescriptions: No Action glipizide 10 mg tablet extended release 24hr 10 mg PO BID Label Comments: take 1 tablet by mouth twice a day clopidogrel [Plavix] 75 mg tablet 75 mg PO DAILY Qty: 90 3RF insulin glargine [Lantus Solostar U-100 Insulin] 100 unit/mL (3 mL) insulin pen 10 unit subcut DAILY omeprazole 20 mg capsule,delayed release(DR/EC) 20 mg PO DAILY Movantik 25 mg tablet 25 mg PO QAM Qty: 30 6RF Rx Instructions: must be taken on empty stomach; no food 1 hr after or 2-3 hrs before dose diphenhydramine-acetaminophen [Tylenol PM Extra Strength] 25-500 mg tablet 2 tab PO QHS PRN (Reason: Insomnia) melatonin 10 mg tablet 10 mg PO HS PRN (Reason: Insomnia) hydroxyzine HCl 25 mg tablet 25 mg PO QHS PRN (Reason: anxiety) Entresto 49-51 mg tablet 1 tab PO BID Qty: 60 11RF tizanidine 4 MG tablet 4 mg PO QHS promethazine 25 mg tablet 25 mg PO TID PRN (Reason: nausea and vomiting) Qty: 21 0RF potassium chloride 10 mEq tablet extended release 20 meq PO DAILY Qty: 60 0RF furosemide 40 mg Tablet 40 mg PO DAILY Qty: 60 0RF oxycodone-acetaminophen [Percocet] 5-325 mg tablet 1 tab PO Q8H PRN (Reason: pain) 3 Days Qty: 10 0RF isosorbide mononitrate 30 mg tablet extended release 24 hr 30 mg PO DAILY Qty: 90 3RF Hold Instructions: Resume on 07/22/21. atorvastatin 80 mg tablet 80 mg PO QHS Qty: 90 3RF Farxiga 10 mg tablet 10 mg PO DAILY Qty: 90 3RF Eliquis 5 mg tablet 5 mg PO BID Qty: 60 11RF carvedilol 25 mg tablet 25 mg PO BID Qty: 180 3RF Rx Instructions: must administer with a meal/food Primary Care Provider: Margo Tatum Referrals: Margo Tatum DO [Primary Care Provider] - 5-7 Days Disposition Disposition: Home, Self Care
--- NOTE | 2022-04-05 16:34 | EKG12_ITS ---
Test Reason : Blood Pressure : / mmHG Vent. Rate : 088 BPM Atrial Rate : 088 BPM P-R Int : 182 ms QRS Dur : 162 ms QT Int : 438 ms P-R-T Axes : 045 -13 051 degrees QTc Int : 529 ms Normal sinus rhythm Left bundle branch block Abnormal ECG When compared with ECG of 24-JAN-2022 20:23, No significant change was found Confirmed by JANAY GEE, JAMEL ([id number]), editor sound JAYLIN FRANK ([id number]) on 04/08/2022 7:48:29 AM Referred By: EDEN Confirmed By:JAMEL GUSTAFSON MD
[2022-04-05 16:45] VITALS: BP 125/85; PULSE 82
[2022-04-05] MEDS: Nitroglycerin SL (ED/IMG/CATH) 0.4 MG TABLET SL (16:45)
--- NOTE | 2022-04-05 16:45 | RAD_ITS ---
STUDY: X-RAY CHEST REASON FOR EXAM: Female, 51 years old. chest pain TECHNIQUE: Single AP portable view of the chest. COMPARISON: 02/24/2022. FINDINGS: The lungs are clear and expanded. There is no demonstrated pleural abnormality. Normal size heart. Normal mediastinum and tony. Normal visualized pulmonary arteries. Normal visualized aortic arch and descending thoracic aorta. Normal visualized thoracic spine. Normal visualized ribs, clavicles, and shoulders. There is no demonstrated abnormality of the visualized soft tissue structures of the upper abdomen. RAD/Chest 1 View (Portable) IMPRESSION: Normal x-ray examination of the chest. Electronically Signed: Elle Medeiros MD at 18:02 EDT Reading Location ID and State: [id number] / Tel , Service support ,
[2022-04-05 17:05] LABS: Absolute Lymphocyte Count 2.06 X10^3/uL (0.83-4.51); Absolute Neutrophil Count 3.7 X10^3/uL (2.0-7.7); Basophil# 0.02 X10^3/uL; Basophil% 0.3 % (0-1); Eosinophil# 0.04 X10^3/uL; Eosinophils% 0.6 % (0-5); Hematocrit 42.3 % (37-47); Hemoglobin 14.8 g/dL (12.0-15.0); Lymphocyte # 2.06 X10^3/ul (0.83-4.51); Lymphocyte % 33.2 % (19-41); Mean Corpuscular Hgb 32.1 pg (27.0-32.0); Mean Corpuscular Volume 91.8 fL (81-99); Mean Platelet Vol. 9.8 fl (6.2-12.0); Monocyte# 0.36 X10^3/uL; Monocyte% 5.8 % (0-10); NRBC Flagged by Analyzer 0 % (0-5); Neutrophil % 59.8 % (47-70); Platelet Count 209 K/mm3 (150-450); RBC Distribution Width CV 14.5 % (11.6-14.6); RBC Distribution Width SD 48.6 fl (35.1-43.9); Red Blood Count 4.61 M/mm3 (4.2-5.4); White Blood Count 6.2 K/mm3 (4.4-11.0)
[2022-04-05 17:14] LABS: Anion Gap 10 (5-15); BUN 23 mg/dL (7-18); BUN/Creat Ratio 25.4 RATIO (10-20); Calcium,Total 9.1 mg/dL (8.5-10.1); Chloride 112 mmol/L (98-107); EST Glomerular Filtration Rate 69 mL/min (>60); Est Glom Filt Rate - Afr Amer 84 mL/min (>60); Estimated Creatinine Clearance 63.14 ml/min; Glucose 256 mg/dL (74-106); Potassium 3.5 mmol/L (3.5-5.1); Sodium Level 141 mmol/L (136-145); Troponin-I HS (w/2H Reflex) 8 pg/mL (3.0-54.0)
[2022-04-05 18:41] VITALS: BP 133/74; PULSE 86; RESP 15; O2SAT 97
[2022-04-05 18:49] LABS: Reflex Troponin-HS? (from REC) Y
[2022-04-05 19:47] VITALS: BP 155/89; PULSE 76; RESP 19; O2SAT 98
[2022-04-05 19:51] LABS: Troponin-I HS 9 pg/mL (3.0-54.0)
[2022-04-05 20:28] VITALS: BP 149/86
== END 2022-04-05 20:28 | disposition home or self-care (01) ==
PROVIDERS: Emergency Provider Emergency Medicine; PCP Family Medicine; Visit Provider Emergency Medicine
DX: R07.9 Chest pain, unspecified (principal); J44.9 Chronic obstructive pulmonary disease, unspecified; I50.22 Chronic systolic (congestive) heart failure; I11.0 Hypertensive heart disease with heart failure; E11.65 Type 2 diabetes mellitus with hyperglycemia; I48.0 Paroxysmal atrial fibrillation; Z79.4 Long term (current) use of insulin; I44.7 Left bundle-branch block, unspecified; E66.9 Obesity, unspecified; I25.10 Atherosclerotic heart disease of native coronary artery without angina pectoris; I25.2 Old myocardial infarction; E78.5 Hyperlipidemia, unspecified; Z68.36 Body mass index [BMI] 36.0-36.9, adult; Z95.5 Presence of coronary angioplasty implant and graft; Z79.02 Long term (current) use of antithrombotics/antiplatelets; Z79.84 Long term (current) use of oral hypoglycemic drugs; Z79.899 Other long term (current) drug therapy; Z86.16 Personal history of COVID-19; Z87.891 Personal history of nicotine dependence
CPT/HCPCS: 71045; 80048; 84484; 85025; 93005; 99285; A4216

== ENCOUNTER → 2022-04-12 | Outpatient (CLI) | payer MEDICARE, MEDICAID, SELFPAY ==
[2022-02-26 14:11] VITALS: BMI 35.5
--- NOTE | 2022-04-12 11:35 | US_ITS ---
EXAM: US SOFT TISSUES HEAD AND NECK, THYROID CLINICAL INDICATION: NODULES TECHNIQUE: Greyscale and color doppler imaging was performed of the thyroid gland. This report was created using [employer] report generation technology. COMPARISON: US Thyroid dated 06/16/2021 FINDINGS: LEFT THYROID LOBE: Left thyroid lobe measures 5.6 x 2.0 x 1.8 cm. Stable left thyroid nodules. Dominant 2.7 cm nodule within the lower pole of the left lobe. This nodule is mixed cystic and solid, hyperechoic or isoechoic, [id number], is lobulated or irregular and contains no echogenic foci. TI-RADS points: 4. TI-RADS category: TR4. This nodule is moderately suspicious. Recommend FNA evaluation. RIGHT THYROID LOBE: Right thyroid lobe measures 4.7 x 1.8 x 1.3 cm. Stable nodules. The dominant 19 mm nodule within the lower pole of the right lobe is stable in size. This nodule is mixed cystic and solid, hyperechoic or isoechoic, [id number], smoothly marginated and contains no echogenic foci. TI-RADS points: 2. TI-RADS category: TR2. This nodule is not suspicious and no FNA or follow-up is necessary. ISTHMUS: Normal. No thyroid nodules are present. US/Thyroid IMPRESSION: Stable bilateral thyroid nodules. TR 4 lesion of the left lower pole nodule may warrant fine-needle aspiration. Electronically Signed: Samm Corley MD at 15:35 EST ,
== END | disposition home or self-care (01) ==
LOC: US 11:34
PROVIDERS: PCP Family Medicine; Referring Provider Family Medicine; Visit Provider Family Medicine
DX: E04.1 Nontoxic single thyroid nodule (principal); R79.89 Other specified abnormal findings of blood chemistry
CPT/HCPCS: 76536

== ENCOUNTER → 2022-04-13 | Outpatient (CLI) | payer MEDICARE, MEDICAID, SELFPAY ==
[2022-02-26 14:11] VITALS: BMI 35.5
[2022-04-13 17:20] LABS: BNP,B-Type NATRIURETIC PEPTIDE 87.5 pg/mL (0-100)
[2022-04-13 17:22] LABS: Anion Gap 7 (5-15); BUN 16 mg/dL (7-18); BUN/Creat Ratio 18.9 RATIO (10-20); Calcium,Total 8.8 mg/dL (8.5-10.1); Chloride 109 mmol/L (98-107); Creatinine, Serum 0.85 mg/dL (0.55-1.02); EST Glomerular Filtration Rate 75 mL/min (>60); Est Glom Filt Rate - Afr Amer 91 mL/min (>60); Glucose 218 mg/dL (74-106); Potassium 3.9 mmol/L (3.5-5.1); Sodium Level 140 mmol/L (136-145)
== END | disposition home or self-care (01) ==
LOC: LAB 15:22
PROVIDERS: PCP Family Medicine; Visit Provider Nurse Practitioner Family
DX: I50.20 Unspecified systolic (congestive) heart failure (principal); R06.09 Other forms of dyspnea
CPT/HCPCS: 36415; 80048; 83880

== ENCOUNTER → 2022-04-22 | Outpatient (CLI) | payer MEDICARE, SELFPAY ==
[2022-02-26 14:11] VITALS: BMI 35.5
--- NOTE | 2022-04-22 12:48 | ECHOL_ITS ---
Reason For Study: CHF Procedure This was a limited 2D transthoracic echocardiogram. Exam performed in department. Left Ventricle Normal LV size. Moderately severe global left ventricular systolic dysfunction. The left ventricular ejection fraction is 30 %. Moderately severe segmental systolic dysfunction (see wall motion). There is moderate to severe global hypokinesis of the left ventricle. Mid-anteroseptal : Akinetic. Mid- Inferior: Akinetic. Infero-Basal: Akinetic. Right Ventricle Normal RV size. Normal systolic function. Atria The left atrium is mildly enlarged. The right atrium is mildly enlarged. Mitral Valve Normal mitral valve. Tricuspid Valve Normal tricuspid valve. Aortic Valve Trisinus/trileaflet aortic valve. Pulmonic Valve Normal pulmonic valve. Great Vessels Normal aortic root. The pulmonary artery is normal size. Normal inferior vena cava. Pericardium/Pleural No pericardial effusion. MMode/2D Measurements & Calculations LVIDd: 4.9 cm IVSd: 1.3 cm Ao root diam: 3.2 cm LVIDs: 4.0 cm LVPWd: 1.2 cm FS: 19.5 % LAV(MOD-bp): 52.0 ml LA A4 area: 16.8 cm2 LA dimension(2D): 4.2 cm LAV(MOD-bp) Indexed: 26.1 ml/m2 LAV(MOD-sp2): 52.2 ml LAV(MOD-sp4): 50.6 ml RA A4 area: 10.1 cm2 ECHO/Echo, Limited Study Interpretation Summary Normal LV size. Moderately severe global left ventricular systolic dysfunction. The left ventricular ejection fraction is 30 %. There is moderate to severe global hypokinesis of the left ventricle. The left atrium is mildly enlarged. Mid-anteroseptal : Akinetic. Moderately severe segmental systolic dysfunction (see wall motion). Compared to previous study, the left ventricular systolic function is the same. . Ordering Physician: Kirk Mitchell Referring Physician: Margo Tatum Performed By: Elisa Peralta, NEEL, RVT
== END | disposition home or self-care (01) ==
LOC: CVS 12:47
PROVIDERS: PCP Family Medicine; Visit Provider Nurse Practitioner Family
DX: I25.5 Ischemic cardiomyopathy (principal); I48.0 Paroxysmal atrial fibrillation; I44.7 Left bundle-branch block, unspecified
CPT/HCPCS: 93308

== ENCOUNTER → 2022-05-06 | Outpatient (CLI) | payer MEDICARE, SELFPAY ==
[2022-02-26 14:11] VITALS: BMI 35.5
[2022-05-06 16:26] LABS: Free T3 3.4 pg/mL (2.18-3.98); Thyroid Stim Hormone (TSH) 0.01 uIU/mL (0.358-3.74)
== END | disposition home or self-care (01) ==
LOC: LAB 15:22
PROVIDERS: PCP Family Medicine; Visit Provider Nurse Practitioner Family
DX: E05.90 Thyrotoxicosis, unspecified without thyrotoxic crisis or storm (principal)
CPT/HCPCS: 36415; 84439; 84443; 84481

== ENCOUNTER 2022-05-08 12:00 | Emergency (ER) | payer MEDICARE, SELFPAY ==
[2022-02-26 14:11] VITALS: BMI 35.5
[2022-05-08 12:01] VITALS: BP 135/92; PULSE 76; RESP 18; TEMP 36.4; O2SAT 100; BMI 36.0
--- NOTE | 2022-05-08 12:27 | EX.ED.UPPERE ---
HPI <WARD Lyle - Last Filed: 05/08/22 15:55> History of Present Illness Chief Complaint: Edema Narrative Narrative: Patient presents today with swelling and pain in her right hand that started Tuesday. She states she has similar symptoms in her left hand as well but it is much more mild. Patient has a history of diabetes mellitus, rheumatoid arthritis, and CHF. Patient denies a history of gout. She states she has had similar symptoms before but not as bad in the past and was given prednisone which helped. She denies injury to her hands. PFS <WARD Lyle - Last Filed: 05/08/22 15:55> [facility] Medical History (Updated 05/08/22 @ 13:53 by WARD Lyle) Atherosclerotic heart disease of [place] coronary artery without angina pectoris Benign hypertension Bilateral interstitial pneumonia Cardiomyopathy, ischemic Chronic low back pain Chronic nausea Chronic pain COPD (chronic obstructive pulmonary disease) COVID-19 virus infection Difficult intubation Former smoker HFrEF (heart failure with reduced ejection fraction) Hirsutism History of non-ST elevation myocardial infarction (NSTEMI) (09/08/21) Hyperglycemia due to type 2 diabetes mellitus Hyperlipidemia Irregular heart beat Kidney stones Left bundle branch block (LBBB) Myocardial infarct Non-ischemic cardiomyopathy Non-ST elevation (NSTEMI) myocardial infarction Nonobstructive atherosclerosis of coronary artery Obesity Paroxysmal atrial fibrillation Seizures Status post insertion of nerve stimulator Syncope Thyroid nodule Type 2 diabetes mellitus Vomiting Home Medications tizanidine 4 mg tablet 4 mg PO QHS muscle spasms 06/12/20 [History Last Taken 07/16/21] glipizide 10 mg tablet, extended release 24 hr 10 mg PO BID diabetes 07/11/20 [History Last Taken 07/16/21] isosorbide mononitrate 30 mg tablet,extended release 24 hr 30 mg PO DAILY #90 tabs 06/29/21 [Rx Last Taken 07/16/21] atorvastatin 80 mg tablet 80 mg PO QHS #90 tabs 07/06/21 [Rx Last Taken 07/16/21] promethazine 25 mg tablet 25 mg PO TID PRN nausea and vomiting #21 tabs 07/19/21 [Rx Last Taken Unknown] potassium chloride 10 mEq tablet,extended release 20 meq PO DAILY #60 tabs 09/14/21 [Rx Last Taken Unknown] furosemide 40 mg tablet 40 mg PO DAILY #60 tabs 09/16/21 [Rx Last Taken Unknown] oxycodone-acetaminophen 5 mg-325 mg tablet (Percocet) 1 tab PO Q8H PRN pain 3 days #10 tabs 09/20/21 [Rx Last Taken Unknown] dapagliflozin 10 mg tablet (Farxiga) 10 mg PO DAILY this is a dose increase #90 tabs 10/29/21 [Rx Last Taken Unknown] insulin glargine 100 unit/mL (3 mL) subcutaneous pen (Lantus Solostar U-100 Insulin) 10 unit subcut DAILY 11/09/21 [History Last Taken Unknown] omeprazole 20 mg capsule,delayed release 20 mg PO DAILY 11/09/21 [History Last Taken Unknown] apixaban 5 mg tablet (Eliquis) 5 mg PO BID #60 tabs 01/27/22 [Rx Last Taken Unknown] naloxegol 25 mg tablet (Movantik) 25 mg PO QAM #30 tabs 02/09/22 [Rx Last Taken Unknown] diphenhydramine 25 mg-acetaminophen 500 mg tablet (Tylenol PM Extra Strength) 2 tab PO QHS PRN Insomnia 02/24/22 [History Last Taken Unknown] hydroxyzine HCl 25 mg tablet 25 mg PO QHS PRN anxiety 02/24/22 [History Last Taken Unknown] melatonin 10 mg tablet 10 mg PO HS PRN Insomnia 02/24/22 [History Last Taken Unknown] sacubitril 49 mg-valsartan 51 mg tablet (Entresto) 1 tab PO BID #60 tabs 02/24/22 [Rx Last Taken Unknown] carvedilol 25 mg tablet 25 mg PO BID #180 tabs 03/11/22 [Rx Last Taken Unknown] clopidogrel 75 mg tablet (Plavix) 75 mg PO DAILY #90 tabs 04/13/22 [Rx Last Taken Unknown] methimazole 10 mg tablet 10 mg PO DAILY #30 tabs 05/06/22 [Rx Last Taken Unknown] cephalexin 500 mg capsule 500 mg PO Q12 5 days #10 caps 05/08/22 [Rx Last Taken Unknown] hydrocodone-acetaminophen 5-325mg 5mg-325mg 1 tab PO Q6H PRN pain 3 days #7 tabs 05/08/22 [Rx Last Taken Unknown] prednisone 10 mg tablet See Taper PO DAILY #30 tabs 05/08/22 [Rx Last Taken Unknown] Allergy/AdvReac Type Severity Reaction Status Date / Time amoxicillin trihydrate AdvReac Vomiting Verified 05/08/22 12:01 [From Augmentin] potassium clavulanate AdvReac Vomiting Verified 05/08/22 12:01 [From Augmentin] Family History Father Myocardial infarction Cancer prostate, leukemia Agent orange exposure Diabetes Sister Diabetes COPD (chronic obstructive pulmonary disease) Surgical History History of appendectomy History of back surgery History of cholecystectomy (1991) History of coronary artery stent placement (05/19/21) History of hysterectomy History of laparoscopy History of left heart catheterization (09/14/21) History of tonsillectomy Social History household members: significant other Smoking Status: Former smoker how long ago did patient quit smokin alcohol intake: current alcohol intake frequency: holidays/special occasions only substance use type: does not use caffeine: Yes ROS <WARD Lyle - Last Filed: 05/08/22 15:55> ROS ED Constitutional Constitutional ED: Denies chills, fever(s) or sweats Eyes Eyes: Denies blurry vision or change in vision ENT ENT ED: Denies nasal congestion, rhinorrhea or sore throat Cardiovascular Cardiovascular: Denies chest pain, palpitations or racing heartbeat Respiratory/Chest Respiratory/Chest: Denies cough, dyspnea, dyspnea on exertion, shortness of breath at rest or shortness of breath with exertion Gastrointestinal Gastrointestinal: Denies abdominal pain, diarrhea, nausea or vomiting Genitourinary Genitourinary ED: Denies dysuria, hematuria or urinary frequency Musculoskeletal Musculoskeletal: Denies back pain, myalgias or neck pain Integumentary Denies abscess, Abrasions or rash Neurologic Neurologic: Denies headache(s), paresthesias or weakness Psychiatric Psychiatric: Denies anxiety or depression EXAM <WARD Lyle - Last Filed: 05/08/22 15:55> Physical Exam Const Vital Signs: 05/08/22 12:01 Temperature 97.5 F L Temperature Source Temporal Pulse Rate 76 Respiratory Rate 18 Blood Pressure 135/92 H Blood Pressure Mean 106 Pulse Ox 100 Oxygen Delivery Method Room Air Positive obese General Appearance ED: NAD Nutritional Appearance: obese HEENT Reports moist mucous membranes normocephalic and atraumatic; Negative for tenderness Eyes PERRL and EOMs intact bilaterally Neck full ROM and supple Chest Wall inspection of chest normal Resp normal respiratory effort and clear to auscultation bilaterally Cardio regular rate, regular rhythm and no murmurs GI non-tender, non-distended and no masses Palpation: soft Back/Spine Cervical Spine: Negative for cervical spine tenderness Thoracic Spine / Upper Back: Negative for thoracic spinal tenderness Lumbar Spine / Lower Back: Negative for lumbar spinal tenderness Extremity Extremity Narrative: Patient admits to pins and needles like pain when touching her right hand. Radial pulses 2+ bilaterally. Capillary refill less than 2 seconds in all fingers bilaterally. No erythema, edema, ecchymosis, or signs of obvious injury. Neuro oriented x3, CN's II-XII intact bilaterally, moves all extremities, no focal motor deficits and no sensory deficits noted Sensorium / Orientation: alert Motor Exam: strength 5/5 throughout and muscle tone normal throughout Psych mental status grossly normal Mood & Affect: Negative for depressed or anxious Skin Skin Narrative: small paronychia on R thumb. Lesions: No no lesions Rashes: No no rashes Trauma: Negative for no lacerations or abrasions [facility] <WARD Lyle - Last Filed: 05/08/22 15:55> [facility] Narrative Medical decision making narrative: X-rays of the R hand are negative for any acute fracture. Paronychia was very small with very minimal fluctuance appreciated. I attempted to I&D this and only appreciated a small amount of blood. I have given patient instructions to soak the area 2-3 times a day for 10 to 15 minutes for the next several days. I have prescribed her a short course of antibiotics. I have given pain control and steroids to go home with for her hand pain. Patient says she has a history of RA but has not had a flare in several years and does not take any medications for this. I advised her to follow-up with her PCP early next week to explore this more. I am comfortable with patient discharging home and patient is comfortable with plan. I have given her return instructions. <Dr. Alec Leiva, DO - Last Filed: 05/08/22 13:58> [facility] Treatment and Re-Evaluation Narrative: I performed a history and physical examination of the patient and discussed management plan with the physician therapy administrative assistant. I reviewed the physician therapy administrative assistant's note and agree with the documented findings and plan of care. Patient presents with pain and swelling of the thumb on middle and ring finger. She has a paronychia I on the thumb I do not appreciate massive swelling. There is no increased warmth there is good capillary refill. There is no erythema. X-rays of the hand on my interpretation are negative radiology concurs. Alec Leiva DO, MS Discharge Plan Triage Chief Complaint: Edema ED Midlevel Provider: Lolis Todd ED Provider: Alec Leiva Dx/Rx/DC Orders Clinical Impression: Paronychia, Bilateral hand pain Instructions: ED Paronychia of the Finger or Toe Prescriptions: New prednisone 10 mg tablet See Taper PO DAILY Qty: 30 0RF Taper: Prednisone Taper 40 mg DAILY@0800 for 3 Days and 0 Hour 30 mg DAILY@0800 for 3 Days and 0 Hour 20 mg DAILY@0800 for 3 Days and 0 Hour 10 mg DAILY@0800 for 3 Days and 0 Hour hydrocodone-acetaminophen 5-325 mg tablet 1 tab PO Q6H PRN (Reason: pain) 3 Days Qty: 7 0RF cephalexin 500 mg capsule 500 mg PO Q12 5 Days Qty: 10 0RF No Action glipizide 10 mg tablet extended release 24hr 10 mg PO BID Label Comments: take 1 tablet by mouth twice a day insulin glargine [Lantus Solostar U-100 Insulin] 100 unit/mL (3 mL) insulin pen 10 unit subcut DAILY omeprazole 20 mg capsule,delayed release(DR/EC) 20 mg PO DAILY Movantik 25 mg tablet 25 mg PO QAM Qty: 30 6RF Rx Instructions: must be taken on empty stomach; no food 1 hr after or 2-3 hrs before dose diphenhydramine-acetaminophen [Tylenol PM Extra Strength] 25-500 mg tablet 2 tab PO QHS PRN (Reason: Insomnia) melatonin 10 mg tablet 10 mg PO HS PRN (Reason: Insomnia) hydroxyzine HCl 25 mg tablet 25 mg PO QHS PRN (Reason: anxiety) Entresto 49-51 mg tablet 1 tab PO BID Qty: 60 11RF clopidogrel [Plavix] 75 mg tablet 75 mg PO DAILY Qty: 90 3RF methimazole 10 mg tablet 10 mg PO DAILY Qty: 30 1RF tizanidine 4 MG tablet 4 mg PO QHS promethazine 25 mg tablet 25 mg PO TID PRN (Reason: nausea and vomiting) Qty: 21 0RF potassium chloride 10 mEq tablet extended release 20 meq PO DAILY Qty: 60 0RF furosemide 40 mg Tablet 40 mg PO DAILY Qty: 60 0RF oxycodone-acetaminophen [Percocet] 5-325 mg tablet 1 tab PO Q8H PRN (Reason: pain) 3 Days Qty: 10 0RF isosorbide mononitrate 30 mg tablet extended release 24 hr 30 mg PO DAILY Qty: 90 3RF Hold Instructions: Resume on 07/22/21. atorvastatin 80 mg tablet 80 mg PO QHS Qty: 90 3RF Farxiga 10 mg tablet 10 mg PO DAILY Qty: 90 3RF Eliquis 5 mg tablet 5 mg PO BID Qty: 60 11RF carvedilol 25 mg tablet 25 mg PO BID Qty: 180 3RF Rx Instructions: must administer with a meal/food Primary Care Provider: Margo Tatum Referrals: Margo Tatum DO [Primary Care Provider] - Activity Restrictions/Additional Instructions: Please soak thumb in warm water 2-3 times a day for 10-15 mins for the next several days. Keep area clean, dry, and covered. Please return if you begin to show signs of infection such as increased redness, increased swelling, or fever develops. Disposition Disposition: Home, Self Care Discharge Date/Time: 05/08/22 14:09
--- NOTE | 2022-05-08 12:40 | RAD_ITS ---
EXAM: XR RIGHT HAND COMPLETE, 3 OR MORE VIEWS CLINICAL INDICATION: Right hand pain. TECHNIQUE: Frontal, lateral and oblique views of the right hand. This report was created using [employer] report generation technology. COMPARISON: None. FINDINGS: BONES/JOINTS: Unremarkable. No acute fracture. No subluxation. Normal alignment. Preservation of the joint space. No sclerotic or destructive changes observed. SOFT TISSUES: Unremarkable. No soft tissue swelling or gas. No radiopaque foreign body. RAD/Hand Min 3 Views IMPRESSION: Negative right hand x-rays. Electronically Signed: Carlos Neely MD at 13:38 EST ,
[2022-05-08 14:00] VITALS: BP 130/88; PULSE 77; RESP 18; O2SAT 97
== END 2022-05-08 14:09 | disposition home or self-care (01) ==
PROVIDERS: Emergency Provider Emergency Medicine; PCP Family Medicine; Visit Provider Emergency Medicine
DX: L03.90 Cellulitis, unspecified (principal); J44.9 Chronic obstructive pulmonary disease, unspecified; I11.0 Hypertensive heart disease with heart failure; I50.22 Chronic systolic (congestive) heart failure; I42.8 Other cardiomyopathies; E11.9 Type 2 diabetes mellitus without complications; M79.641 Pain in right hand; I25.10 Atherosclerotic heart disease of native coronary artery without angina pectoris; E78.5 Hyperlipidemia, unspecified; Z87.891 Personal history of nicotine dependence; M79.642 Pain in left hand
CPT/HCPCS: 73130; 99282

== ENCOUNTER → 2022-05-18 | Outpatient (CLI) | payer MEDICARE, MEDICAID, SELFPAY ==
[2022-02-26 14:11] VITALS: BMI 35.5
[2022-05-21 07:08] LABS: Thyroid Stim Immunoglob <0.10 IU/L (0.00-0.55)
[2022-05-23 15:34] LABS: Thyroid Peroxidase AB < 9 IU/mL (0-34)
== END | disposition home or self-care (01) ==
PROVIDERS: PCP Family Medicine; Referring Provider Surgery; Visit Provider Surgery
DX: E05.90 Thyrotoxicosis, unspecified without thyrotoxic crisis or storm (principal)
CPT/HCPCS: 36415; 84445; 86376

== ENCOUNTER → 2022-05-19 | Outpatient (CLI) | payer MEDICARE, MEDICAID, SELFPAY ==
[2022-02-26 14:11] VITALS: BMI 35.5
--- NOTE | 2022-05-19 10:40 | FLU_PTH ---
PATIENT: PITO CLARK LOC: [facility] U#:[id number] AGE/SX: 51/F ROOM: RE05/19/[address]: Dr. Edward Hancock MD : 1970 BED: DIS: 05/19/2022 SPEC #: [id number] RECD: 05/19/22 11:35 STATUS: DAXA REMathew #: [id number] HOWARD: 05/19/22 10:[address]: Edward Hancock DEPT: CYTOLOGY RECD BY: Yari Chavez ENTERED: 05/19/22 13:38 SP TYPE: Fluid OTHR DR: Dr. Margo Tatum DO Tissues: A - Thyroid gland, NOS B - Thyroid gland, NOS Procedures: Special Stain Group II Surgery Specimen Level IV Cytospin Fluid Cytology Other HEADER OPERATION: Left lobe thyroid nodule fine needle aspiration PRE-OP DIAGNOSIS: Multiple thyroid nodules TISSUE SUBMITTED: A ? Left thyroid nodule fluid, B ? Left thyroid nodule x4 slides DIAGNOSIS CYTOLOGY A. Left thyroid nodule fluid, fine needle aspiration (cytospin and cell block): Consistent with benign follicular/colloid nodule ([place] Category II). Adequate for evaluation. See comment. B. Left thyroid nodule, fine needle aspiration (smears): Consistent with benign follicular/colloid nodule ([place] Category II). Adequate for evaluation. See comment. SJ:riley 05/20/2022 COMMENT A & B. Correlation with clinical, radiologic findings and appropriate follow up are necessary. CYTOLOGY STUDY Slides are reviewed. CYTOLOGY GROSS A - Received is 30 ml of red cloudy fluid labeled with the patient's name and and designated per the requisition as left thyroid nodule. Submitted for cytology preparation including cell block. B - Received are 4 smears labeled with the patient's name and designated per the requisition as left thyroid nodule. Submitted for staining. / riley 05/19/2022 TC:5 CPT: 57945 x2, 98089
== END | disposition home or self-care (01) ==
LOC: LABSPEC 11:45
PROVIDERS: PCP Family Medicine; Visit Provider Surgery
DX: E04.2 Nontoxic multinodular goiter (principal)
CPT/HCPCS: 88108; 88161; 88305; 88313

== ENCOUNTER → 2022-05-25 | Outpatient (CLI) | payer MEDICARE, MEDICAID, SELFPAY ==
[2022-02-26 14:11] VITALS: BMI 35.5
== END | disposition home or self-care (01) ==
LOC: BFHLAB 15:12
PROVIDERS: PCP Family Medicine; Visit Provider Family Medicine
DX: N30.00 Acute cystitis without hematuria (principal)
CPT/HCPCS: 87086; 87088; 87186

== ENCOUNTER → 2022-06-03 | Outpatient (CLI) | payer MEDICARE, MEDICAID, SELFPAY ==
[2022-02-26 14:11] VITALS: BMI 35.5
[2022-06-03 14:04] LABS: T4 Free Direct 0.94 ng/dL (0.76-1.46); Thyroid Stim Hormone (TSH) 0.06 uIU/mL (0.358-3.74)
== END | disposition home or self-care (01) ==
PROVIDERS: PCP Family Medicine; Referring Provider Nurse Practitioner Family; Visit Provider Nurse Practitioner Family
DX: E05.90 Thyrotoxicosis, unspecified without thyrotoxic crisis or storm (principal)
CPT/HCPCS: 36415; 84439; 84443; 84481

== ENCOUNTER 2022-06-30 10:57 | Emergency (ER) | payer MEDICARE, MEDICAID, SELFPAY ==
[2022-02-26 14:11] VITALS: BMI 35.5
[2022-06-30 10:58] VITALS: BP 158/78; PULSE 70; RESP 22; TEMP 35.5; O2SAT 100; BMI 35.9
--- NOTE | 2022-06-30 11:10 | RAD_ITS ---
STUDY: X-RAY - LEFT FOOT CLINICAL: Female, 51 years old. Pain and swelling TECHNIQUE: 3 view(s) of the foot. COMPARISON: None. FINDINGS: Normal talus and tarsal bones. Calcaneal heel spurs Normal visualized subtalar, talonavicular, calcaneocuboid, tarsal and tarsometatarsal articulations. Normal metatarsi. Normal metatarsophalangeal joint of the great toe. Normal tibial and fibular sesamoid bones. Normal interphalangeal joint of the great toe. Normal phalanges of the great toe. Normal second through fifth metatarsophalangeal joints. Normal interphalangeal joints and phalanges of the lesser toes. The soft tissue structures are unremarkable. RAD/Foot min 3 Views IMPRESSION: Calcaneal heel spurs, no demonstrated fracture or suspicious osseous lesion Electronically Signed: Ramu Diamond MD at 11:47 EST ,
--- NOTE | 2022-06-30 11:10 | RAD_ITS ---
STUDY: X-RAY - LEFT ANKLE REASON FOR EXAM: Female, 51 years old. Pain and swelling TECHNIQUE: 3 view(s) of the ankle. COMPARISON: None. FINDINGS: Normal visualized distal tibia and fibula. Normal medial and lateral malleoli. Normal tibiotalar articulation and ankle mortise. Normal visualized talus. Calcaneal spurs. The visualized subtalar, talonavicular, calcaneocuboid and tarsal articulations are normal. Nonspecific soft tissue swelling. RAD/Ankle min 3 Views IMPRESSION: No demonstrated fracture, or ankle mortise abnormality. There is over mild nonspecific soft tissue swelling, and a subtle occult fracture could be present. Calcaneal spurs Electronically Signed: Ramu Diamond MD at 11:46 EST ,
--- NOTE | 2022-06-30 11:11 | EX.ED.DYSGE1 ---
HPI History of Present Illness Chief Complaint: Lower Extremity Injury Detail of Chief Complaint: Left foot injury Informant: patient Onset/Context/Timing Onset: Yesterday Current Severity: Mild Maximum Severity: Moderate Narrative Narrative: Patient presents secondary to left foot pain. She states that she fell on the ice yesterday. She is had increasing pain to the left foot since that time. She took ibuprofen and a muscle relaxer last night to try to get comfortable. Pain was even worse this morning. She denies striking her head or loss of consciousness. No other injury. [facility] Medical History Atherosclerotic heart disease of [place] coronary artery without angina pectoris Benign hypertension Bilateral interstitial pneumonia Cardiomyopathy, ischemic Chronic low back pain Chronic nausea Chronic pain COPD (chronic obstructive pulmonary disease) COVID-19 virus infection Difficult intubation Former smoker HFrEF (heart failure with reduced ejection fraction) Hirsutism History of non-ST elevation myocardial infarction (NSTEMI) (09/08/21) Hyperglycemia due to type 2 diabetes mellitus Hyperlipidemia Irregular heart beat Kidney stones Left bundle branch block (LBBB) Myocardial infarct Non-ischemic cardiomyopathy Non-ST elevation (NSTEMI) myocardial infarction Nonobstructive atherosclerosis of coronary artery Obesity Paroxysmal atrial fibrillation Seizures Status post insertion of nerve stimulator Syncope Thyroid nodule Type 2 diabetes mellitus Vomiting Home Medications glipizide 10 mg tablet, extended release 24 hr 10 mg PO BID diabetes 07/11/20 [History Last Taken 07/16/21] potassium chloride 10 mEq tablet,extended release 20 meq PO DAILY #60 tabs 09/14/21 [Rx Last Taken Unknown] furosemide 40 mg tablet 40 mg PO DAILY #60 tabs 09/16/21 [Rx Last Taken Unknown] dapagliflozin 10 mg tablet (Farxiga) 10 mg PO DAILY this is a dose increase #90 tabs 10/29/21 [Rx Last Taken Unknown] insulin glargine 100 unit/mL (3 mL) subcutaneous pen (Lantus Solostar U-100 Insulin) 10 unit subcut DAILY 11/09/21 [History Last Taken Unknown] apixaban 5 mg tablet (Eliquis) 5 mg PO BID #60 tabs 01/27/22 [Rx Last Taken Unknown] naloxegol 25 mg tablet (Movantik) 25 mg PO QAM #30 tabs 02/09/22 [Rx Last Taken Unknown] hydroxyzine HCl 25 mg tablet 25 mg PO QHS PRN anxiety 02/24/22 [History Last Taken Unknown] melatonin 10 mg tablet 10 mg PO HS PRN Insomnia 02/24/22 [History Last Taken Unknown] sacubitril 49 mg-valsartan 51 mg tablet (Entresto) 1 tab PO BID #60 tabs 02/24/22 [Rx Last Taken Unknown] carvedilol 25 mg tablet 25 mg PO BID #180 tabs 03/11/22 [Rx Last Taken Unknown] clopidogrel 75 mg tablet (Plavix) 75 mg PO DAILY #90 tabs 04/13/22 [Rx Last Taken Unknown] hydrocodone-acetaminophen 5-325mg 5mg-325mg 1 tab PO Q6H PRN pain 3 days #7 tabs 05/08/22 [Rx Last Taken Unknown] hydroxyzine HCl 25 mg tablet 25 mg PO QHS PRN 05/18/22 [History Last Taken Unknown] flash glucose scanning reader ([employer] Sanam 2 [place]) #1 ea 06/09/22 [Rx Last Taken Unknown] flash glucose sensor ([employer] Sanam 2 Sensor kit) #2 ea 06/09/22 [Rx Last Taken Unknown] insulin lispro 100 unit/mL subcutaneous pen (Humalog KwikPen (U-100) Insulin) 10 unit (0.1 mL) subcut TID #27 mL 06/09/22 [Rx Last Taken Unknown] atorvastatin 80 mg tablet 80 mg PO QHS #90 tabs 06/23/22 [Rx Last Taken Unknown] isosorbide mononitrate 30 mg tablet,extended release 24 hr 30 mg PO DAILY #90 tabs 06/23/22 [Rx Last Taken Unknown] methimazole 10 mg tablet 10 mg PO DAILY #30 tabs 06/28/22 [Rx Last Taken Unknown] omeprazole magnesium 20 mg tablet,delayed release (Prilosec OTC) 20 mg PO DAILY #7 tabs 06/30/22 [Rx Last Taken Unknown] prednisone 20 mg tablet 40 mg PO DAILY #8 tabs 06/30/22 [Rx Last Taken Unknown] Allergy/AdvReac Type Severity Reaction Status Date / Time amoxicillin trihydrate AdvReac Vomiting Verified 06/30/22 10:59 [From Augmentin] potassium clavulanate AdvReac Vomiting Verified 06/30/22 10:59 [From Augmentin] Family History Father Myocardial infarction Cancer prostate, leukemia Agent orange exposure Diabetes Sister Diabetes COPD (chronic obstructive pulmonary disease) Surgical History History of appendectomy History of back surgery History of cholecystectomy (1991) History of coronary artery stent placement (05/19/21) History of hysterectomy History of laparoscopy History of left heart catheterization (09/14/21) History of tonsillectomy Social History household members: significant other Smoking Status: Former smoker how long ago did patient quit smokin alcohol intake: current alcohol intake frequency: holidays/special occasions only substance use type: does not use caffeine: Yes ROS ROS ED Constitutional Constitutional ED: Denies chills or fever(s) Eyes Eyes: Denies discharge from eye(s) ENT ENT ED: Denies discharge from eye(s), rhinorrhea or sore throat Cardiovascular Cardiovascular: Denies chest pain or palpitations Respiratory/Chest Respiratory/Chest: Denies cough or dyspnea Gastrointestinal Gastrointestinal: Denies abdominal pain, diarrhea, nausea or vomiting Genitourinary Genitourinary ED: Denies dysuria Musculoskeletal Musculoskeletal: Reports extremity pain; Denies back pain Integumentary Denies Abrasions or rash Neurologic Neurologic: Denies headache(s) or weakness Psychiatric Psychiatric: Denies anxiety or depression Allergic/Immunologic Allergic/Immunologic ED: Denies lip swelling or urticaria EXAM Physical Exam Const Vital Signs: 06/30/22 10:58 Temperature 96 F L Temperature Source Temporal Pulse Rate 70 Respiratory Rate 22 H Blood Pressure 158/78 H Blood Pressure Mean 104 Pulse Ox 100 Oxygen Delivery Method Room Air Positive well nourished and well developed General Appearance ED: well developed HEENT Reports moist mucous membranes Eyes PERRL and EOMs intact bilaterally Neck no lymphadenopathy Chest Wall inspection of chest normal and palpation of chest normal Resp normal respiratory effort and clear to auscultation bilaterally Cardio regular rate and regular rhythm GI normal to inspection, nondistended, normoactive bowel sounds Extremity Extremity Narrative: Diffuse tenderness to palpation of the left foot. Minimal edema noted. No ecchymosis or abrasions. Good cap refill distally. Mild tenderness of the lateral malleolus of the ankle. No tenderness at the proximal fibula or knee. Neuro oriented x3 Psych mental status grossly normal Skin no rashes or lesions noted MDM MDM MDM Narrative Medical decision making narrative: Left foot and ankle x-ray obtained. Radiography Diagnostic Testing: Clinical Impression(s) from Imaging Studies Ankle X-Ray 06/30/22 11:10 IMPRESSION: No demonstrated fracture, or ankle mortise abnormality. There is over mild nonspecific soft tissue swelling, and a subtle occult fracture could be present. Calcaneal spurs Electronically Signed: Ramu Diamond MD at 11:46 EST , Foot X-Ray 06/30/22 11:10 IMPRESSION: Calcaneal heel spurs, no demonstrated fracture or suspicious osseous lesion Electronically Signed: Ramu Diamond MD at 11:47 EST , Treatment and Re-Evaluation Narrative: Left foot and ankle x-ray obtained per my interpretation reveal no acute fracture. She does have evidence of heel spurs. Radiology interpretation is reviewed and agrees. Test results are discussed with the patient. With her falling and twisting her foot yesterday, this certainly could have irritated any [place] fasciitis or irritation from her spurs. She is already on [place] from pain management. I will write her a 4-day burst of steroids. I will also write her for Prilosec to help protect her stomach as she is on Eliquis. She was advised to make sure she eats when she takes the steroid. She voices understanding and agreement. Discharge Plan Triage Chief Complaint: Lower Extremity Injury ED Provider: Aura Santizo Dx/Rx/DC Orders Clinical Impression: Sprain of left foot Instructions: ED Foot Sprain Prescriptions: New prednisone 20 mg tablet 40 mg PO DAILY Qty: 8 0RF omeprazole magnesium [Prilosec OTC] 20 mg tablet,delayed release (DR/EC) 20 mg PO DAILY Qty: 7 0RF No Action glipizide 10 mg tablet extended release 24hr 10 mg PO BID Label Comments: take 1 tablet by mouth twice a day insulin glargine [Lantus Solostar U-100 Insulin] 100 unit/mL (3 mL) insulin pen 10 unit subcut DAILY Movantik 25 mg tablet 25 mg PO QAM Qty: 30 6RF Rx Instructions: must be taken on empty stomach; no food 1 hr after or 2-3 hrs before dose melatonin 10 mg tablet 10 mg PO HS PRN (Reason: Insomnia) hydroxyzine HCl 25 mg tablet 25 mg PO QHS PRN (Reason: anxiety) Entresto 49-51 mg tablet 1 tab PO BID Qty: 60 11RF clopidogrel [Plavix] 75 mg tablet 75 mg PO DAILY Qty: 90 3RF hydroxyzine HCl 25 mg tablet 25 mg PO QHS PRN insulin lispro [Humalog KwikPen Insulin] 100 unit/mL insulin pen 10 unit subcut TID Qty: 27 1RF (DME) FreeStyle Sanam 2 Sensor Kit See Rx Instructions .Route Qty: 2 5RF Rx Instructions: 1 sensor q 14 days (DME) FreeStyle Sanam 2 [place] Misc See Rx Instructions .Route Qty: 1 0RF Rx Instructions: As directed potassium chloride 10 mEq tablet extended release 20 meq PO DAILY Qty: 60 0RF furosemide 40 mg Tablet 40 mg PO DAILY Qty: 60 0RF hydrocodone-acetaminophen 5-325 mg tablet 1 tab PO Q6H PRN (Reason: pain) 3 Days Qty: 7 0RF Farxiga 10 mg tablet 10 mg PO DAILY Qty: 90 3RF Eliquis 5 mg tablet 5 mg PO BID Qty: 60 11RF carvedilol 25 mg tablet 25 mg PO BID Qty: 180 3RF Rx Instructions: must administer with a meal/food isosorbide mononitrate 30 mg tablet extended release 24 hr 30 mg PO DAILY Qty: 90 3RF Hold Instructions: Resume on 07/22/21. atorvastatin 80 mg tablet 80 mg PO QHS Qty: 90 3RF methimazole 10 mg tablet 10 mg PO DAILY Qty: 30 4RF Primary Care Provider: Margo Tatum Referrals: Margo Tatum, [Primary Care Provider] - 1 Week if not improving Disposition Disposition: Home, Self Care
== END 2022-06-30 12:36 | disposition home or self-care (01) ==
PROVIDERS: Emergency Provider Emergency Medicine; PCP Family Medicine; Visit Provider Emergency Medicine
DX: S93.602A Unspecified sprain of left foot, initial encounter (principal); I25.10 Atherosclerotic heart disease of native coronary artery without angina pectoris; I25.2 Old myocardial infarction; Z95.5 Presence of coronary angioplasty implant and graft; Z87.891 Personal history of nicotine dependence; W00.9XXA Unspecified fall due to ice and snow, initial encounter
CPT/HCPCS: 73610; 73630; 99282

== ENCOUNTER → 2022-07-30 | Outpatient (CLI) | payer MEDICARE, MEDICAID, SELFPAY ==
[2022-02-26 14:11] VITALS: BMI 35.5
[2022-07-30 10:57] LABS: Free T3 2.6 pg/mL (2.18-3.98); T4 Free Direct 0.94 ng/dL (0.76-1.46); Thyroid Stim Hormone (TSH) 0.66 uIU/mL (0.358-3.74)
== END | disposition home or self-care (01) ==
LOC: LAB 09:59
PROVIDERS: PCP Family Medicine; Referring Provider Nurse Practitioner Family; Visit Provider Nurse Practitioner Family
DX: I10 Essential (primary) hypertension (principal); E11.9 Type 2 diabetes mellitus without complications
CPT/HCPCS: 36415; 84439; 84443; 84481

== ENCOUNTER 2022-08-06 17:50 | Observation (INO) | payer MEDICARE, MEDICAID, SELFPAY ==
[2022-02-26 14:11] VITALS: BMI 35.5
[2022-08-06] VITALS (7 sets, daily range): BP systolic 146–162; BP diastolic 62–94; PULSE 74–84; RESP 14–18; TEMP 35.9–36.6; O2SAT 96–100; BMI 37.3
--- NOTE | 2022-08-06 18:14 | EKG12_ITS ---
Test Reason : CP Blood Pressure : / mmHG Vent. Rate : 078 BPM Atrial Rate : 078 BPM P-R Int : 196 ms QRS Dur : 160 ms QT Int : 440 ms P-R-T Axes : 068 032 011 degrees QTc Int : 501 ms Sinus rhythm with Premature atrial complexes Low voltage QRS (Limb Leads) Left bundle branch block Abnormal ECG Confirmed by GUCCI GEE, PAT ([id number]), brands editor JAYLIN FRANK ([id number]) on 08/09/2022 1:49:08 PM Referred By: ARIC Confirmed By:PAT DUCKWORTH MD
[2022-08-06 18:29] LABS: Absolute Lymphocyte Count 2.24 X10^3/uL (0.83-4.51); Absolute Neutrophil Count 3.5 X10^3/uL (2.0-7.7); Basophil# 0.02 X10^3/uL; Basophil% 0.3 % (0-1); Eosinophil# 0.13 X10^3/uL; Hematocrit 41.2 % (37-47); Hemoglobin 13.6 g/dL (12.0-15.0); Lymphocyte # 2.24 X10^3/ul (0.83-4.51); Lymphocyte % 35.2 % (19-41); Mean Corpuscular Hgb 31.9 pg (27.0-32.0); Mean Corpuscular Volume 96.7 fL (81-99); Mean Platelet Vol. 10.2 fl (6.2-12.0); Monocyte# 0.42 X10^3/uL; Monocyte% 6.6 % (0-10); NRBC Flagged by Analyzer 0 % (0-5); Neutrophil # 3.54 X10^3/uL (2.7-7.7); Neutrophil % 55.6 % (47-70); Platelet Count 198 K/mm3 (150-450); RBC Distribution Width CV 13.4 % (11.6-14.6); RBC Distribution Width SD 47.3 fl (35.1-43.9); Red Blood Count 4.26 M/mm3 (4.2-5.4); White Blood Count 6.4 K/mm3 (4.4-11.0)
--- NOTE | 2022-08-06 18:39 | RAD_ITS ---
INDICATION: Chest pain EXAMINATION/TECHNIQUE: X-RAY - XR Chest 1 View COMPARISON: 04/05/2022 FINDINGS: LINES/DEVICES: Thoracic spine stimulator leads. LUNGS: No consolidation, edema or effusion. No pneumothorax. MEDIASTINUM AND CARDIOVASCULAR STRUCTURES: Cardiac silhouette not enlarged. Central airways and mediastinal contour are unremarkable. RAD/Chest 1 View (Portable) IMPRESSION: No radiographic evidence of acute cardiopulmonary disease. Electronically Signed: Gustavo Dejesus MD at 19:12 EST ,
[2022-08-06 18:45] LABS: Anion Gap 9 (5-15); BUN 26 mg/dL (7-18); BUN/Creat Ratio 28.9 RATIO (10-20); Calcium,Total 9.2 mg/dL (8.5-10.1); Chloride 109 mmol/L (98-107); EST Glomerular Filtration Rate 70 mL/min (>60); Est Glom Filt Rate - Afr Amer 85 mL/min (>60); Glucose 244 mg/dL (74-106); Sodium Level 138 mmol/L (136-145); Troponin-I HS (w/2H Reflex) 7 pg/mL (3.0-54.0)
--- NOTE | 2022-08-06 19:09 | ED.VIS.CHEST ---
HPI <WARD Lyle - Last Filed: 08/06/22 21:38> History of Present Illness Chief Complaint: Chest Pain Narrative Narrative: Patient presenting today with intermittent stabbing midsternal chest pain that started around 4:30 PM. The pain radiates to her back and shoulders bilaterally. She states that this all started when she went to reach for something on the counter. She has been having mild intermittent midsternal chest pain over the past week, but today it is much worse. Patient also feels slightly short of breath. Patient states she has an extensive history of cardiac conditions and had an NSTEMI in May 2021 where her LAD was stented, she then underwent a catheterization in September 2021 after having an NSTEMI. She states her recent echocardiogram showed that she had an ejection fraction of 25 to 30%. She is supposed to be having pacemaker and defibrillator placed later this month. She denies any history of blood clots. PMH includes CHF, COPD, diabetes mellitus. PFSH <WARD Lyle - Last Filed: 08/06/22 21:38> PFSH Medical History (Updated 08/06/22 @ 23:23 by Shanta Wagoner) Atherosclerotic heart disease of [place] coronary artery without angina pectoris Atrial fibrillation Benign hypertension Bilateral interstitial pneumonia Cardiomyopathy, ischemic Chronic low back pain Chronic nausea Chronic pain COPD (chronic obstructive pulmonary disease) Coronary artery disease COVID-19 virus infection Diabetes Difficult intubation Former smoker HFrEF (heart failure with reduced ejection fraction) Hirsutism History of non-ST elevation myocardial infarction (NSTEMI) (09/08/21) Hyperglycemia due to type 2 diabetes mellitus Hyperlipidemia Hypertension Irregular heart beat Kidney stones Left bundle branch block (LBBB) Myocardial infarct Non-ischemic cardiomyopathy Non-ST elevation (NSTEMI) myocardial infarction Nonobstructive atherosclerosis of coronary artery Obesity Paroxysmal atrial fibrillation Seizures Syncope Thyroid nodule Type 2 diabetes mellitus Vomiting Home Medications glipizide 10 mg tablet, extended release 24 hr 10 mg PO BID diabetes 07/11/20 [History Last Taken 08/06/22] dapagliflozin 10 mg tablet (Farxiga) 10 mg PO DAILY this is a dose increase #90 tabs 10/29/21 [Rx Last Taken 08/06/22 10:00] insulin glargine 100 unit/mL (3 mL) subcutaneous pen (Lantus Solostar U-100 Insulin) 10 unit subcut DAILY Check with primary doctor 11/09/21 [History Last Taken 08/06/22 10:00] apixaban 5 mg tablet (Eliquis) 5 mg PO BID #60 tabs 01/27/22 [Rx Last Taken 08/06/22 10:00] hydroxyzine HCl 25 mg tablet 25 - 50 mg PO QHS PRN anxiety 02/24/22 [History Last Taken Unknown] melatonin 10 mg tablet 10 mg PO HS PRN Insomnia 02/24/22 [History Last Taken Unknown] clopidogrel 75 mg tablet (Plavix) 75 mg PO DAILY #90 tabs 04/13/22 [Rx Last Taken 08/06/22] flash glucose scanning reader (Pasteuria BioscienceStyle Sanam 2 [place]) #1 ea 06/09/22 [Rx Last Taken Unknown] flash glucose sensor (FreeStyle Sanam 2 Sensor kit) #2 ea 06/09/22 [Rx Last Taken Unknown] BD Ultra-Fine [place] Pen Needle 32 gauge x 5/32 (pen needle, diabetic) #100 ea 07/29/22 [Rx Last Taken Unknown] atorvastatin 80 mg tablet 80 mg PO QHS Check with primary doctor 08/06/22 [History Last Taken 08/05/22] carvedilol 25 mg tablet 25 mg PO BID Check with primary doctor 08/06/22 [History Last Taken 08/06/22 10:00] diphenhydramine HCl 25 mg tablet 25 mg PO Q4H PRN PRN Allergy Symptoms 08/06/22 [History Last Taken Unknown] furosemide 40 mg tablet 40 mg PO DAILY Check with primary doctor 08/06/22 [History Last Taken 08/06/22] hydrocodone-acetaminophen 5-325mg 5mg-325mg 1 tab PO DAILY Check with primary doctor 08/06/22 [History Last Taken 08/06/22 10:00] insulin lispro 100 unit/mL subcutaneous pen (Humalog KwikPen (U-100) Insulin) 10 unit subcut TIDCM Check with primary doctor 08/06/22 [History Last Taken 08/06/22 10:00] isosorbide mononitrate 30 mg tablet,extended release 24 hr 30 mg PO DAILY Check with primary doctor 08/06/22 [History Last Taken Unknown] methimazole 10 mg tablet 10 mg PO DAILY Check with primary doctor 08/06/22 [History Last Taken 08/06/22 10:00] naloxegol 25 mg tablet (Movantik) 25 mg PO QAM Check with primary doctor 08/06/22 [History Last Taken Unknown] omeprazole magnesium 20 mg tablet,delayed release (Prilosec OTC) 20 mg PO DAILY Check with primary doctor 08/06/22 [History Last Taken Unknown] promethazine 25 mg tablet 25 mg PO TID PRN PRN Nausea And Vomiting 08/06/22 [History Last Taken Unknown] sacubitril 49 mg-valsartan 51 mg tablet (Entresto) 1 tab PO BID Check with primary doctor 08/06/22 [History Last Taken 08/06/22 10:00] tizanidine 4 mg tablet 4 mg PO QHS 08/06/22 [History Last Taken 08/05/22] Allergy/AdvReac Type Severity Reaction Status Date / Time amoxicillin trihydrate AdvReac Vomiting Verified 06/30/22 10:59 [From Augmentin] potassium clavulanate AdvReac Vomiting Verified 06/30/22 10:59 [From Augmentin] Family History Father Myocardial infarction Cancer prostate, leukemia Agent orange exposure Diabetes Sister Diabetes COPD (chronic obstructive pulmonary disease) Surgical History (Updated 08/06/22 @ 23:23 by Shanta Wagoner) History of appendectomy History of back surgery History of cholecystectomy (1991) History of cholecystectomy History of coronary artery stent placement (05/19/21) History of hysterectomy History of laparoscopy History of left heart catheterization (09/14/21) History of tonsillectomy Status post insertion of nerve stimulator Social History household members: significant other Smoking Status: Former smoker how long ago did patient quit smokin alcohol intake: current alcohol intake frequency: holidays/special occasions only substance use type: does not use caffeine: Yes ROS <WARD Lyle - Last Filed: 08/06/22 21:38> ROS ED Constitutional Constitutional ED: Denies chills, fever(s) or sweats Eyes Eyes: Denies blurry vision or diplopia Cardiovascular Cardiovascular: Denies chest pain or palpitations Respiratory/Chest Respiratory/Chest: Reports dyspnea; Denies cough, tachypnea or wheezing Gastrointestinal Gastrointestinal: Denies abdominal pain, constipation, diarrhea, nausea or vomiting Genitourinary Genitourinary ED: Denies dysuria, hematuria or urinary urgency Musculoskeletal Musculoskeletal: Denies arthralgias, back pain, myalgias or neck pain Integumentary Denies abscess, Abrasions or rash Neurologic Neurologic: Denies confusion, dizziness or paresthesias Psychiatric Psychiatric: Denies anxiety, depression, suicidal ideation or suicidal thoughts Allergic/Immunologic Allergic/Immunologic ED: Denies lip swelling, mouth swelling or urticaria EXAM <WARD Lyle - Last Filed: 08/06/22 21:38> Physical Exam Const Vital Signs: 08/06/22 17:51 08/06/22 18:03 08/06/22 20:07 Temperature 96.7 F L Temperature Source Temporal Pulse Rate 76 80 77 Respiratory Rate 16 14 14 Blood Pressure 146/75 H 146/75 H 162/94 H Blood Pressure Mean 98 98 116 Pulse Ox 100 98 99 Oxygen Delivery Method Room Air Room Air Room Air 08/06/22 21:35 Temperature Temperature Source Pulse Rate 84 Respiratory Rate 17 Blood Pressure 154/81 H Blood Pressure Mean 105 Pulse Ox 97 Oxygen Delivery Method Room Air Positive well developed, obese and no apparent distress General Appearance ED: well developed Nutritional Appearance: obese HEENT Reports normocephalic and head/scalp atraumatic Mouth ED: Yes moist mucous membranes normal Eyes PERRL and EOMs intact bilaterally Neck full ROM and supple Chest Wall inspection of chest normal Resp normal respiratory effort and clear to auscultation bilaterally Cardio regular rate and regular rhythm GI soft to palpation, non-tender, non-distended and no masses Back/Spine normal ROM and normal to inspection Extremity normal to inspection and full ROM Neuro oriented x3, CN's II-XII intact bilaterally, moves all extremities, no focal motor deficits and no sensory deficits noted Sensorium / Orientation: awake and alert Psych mental status grossly normal and thought process normal Skin no rashes or lesions noted and no wounds <Dr. Arjun Ortez DO - Last Filed: 08/06/22 23:53> Physical Exam Const Vital Signs: 08/06/22 17:51 08/06/22 18:03 08/06/22 20:07 Temperature 96.7 F L Temperature Source Temporal Pulse Rate 76 80 77 Respiratory Rate 16 14 14 Blood Pressure 146/75 H 146/75 H 162/94 H Blood Pressure Mean 98 98 116 Pulse Ox 100 98 99 Oxygen Delivery Method Room Air Room Air Room Air 08/06/22 21:35 Temperature Temperature Source Pulse Rate 84 Respiratory Rate 17 Blood Pressure 154/81 H Blood Pressure Mean 105 Pulse Ox 97 Oxygen Delivery Method Room Air <Dr. Arjun Ortez, - Last Filed: 08/06/22 23:53> Heart Score History: Moderately Suspicious ECG: Nonspecific Repolarization Age: >45 - <65 years Risk Factors: >/= 3 Risk Factors or History of CAD Troponin: </= Normal Limit Score: 5 MDM <WARD Lyle - Last Filed: 08/06/22 21:38> MDM MDM Narrative Medical decision making narrative: Patient presenting with midsternal intermittent chest pain that she has had for the past week that acutely worsened today. Patient had an NSTEMI in May 2021 where her LAD was stented, she then underwent a catheterization in September 2021 after having an NSTEMI. She states that her most recent echocardiogram in 04/2022 showed an ejection fracture of 25 to 30% and she is supposed to be having a defibrillator and pacemaker placed this month. Considered PE, however, patient is on Eliquis and has no history of blood clots. CBC unremarkable for any leukocyte cyst or anemia. BMP unremarkable aside from a BUN of 26 and a glucose of 244. Initial troponin WNL, delta troponin normal. Chest x-ray does not show any pneumothorax, pleural effusion, or infiltrates. Reexamination patient states she is still having chest pain and feels short of breath, she states she feels like she just ran a marathon. Patient may need an updated echocardiogram and stress test. She has been discussed with the hospitalist for potential admission. Lab Data Labs: Laboratory Results - last 24 hr 08/06/22 08/06/22 08/06/22 18:00 18:00 20:26 WBC 6.4 RBC 4.26 Hgb 13.6 Hct 41.2 MCV 96.7 MCH 31.9 MCHC 33.0 RDW Std Deviation 47.3 H RDW Coeff of Tomi 13.4 Plt Count 198 MPV 10.2 Immature Gran % (Auto) 0.300 Neut % (Auto) 55.6 Lymph % (Auto) 35.2 [place] % (Auto) 6.6 Eos % (Auto) 2.0 Baso % (Auto) 0.3 Absolute Neuts (auto) 3.5 Absolute Lymphs (auto) 2.24 Nucleated RBC % 0 Sodium 138 Potassium 4.0 Chloride 109 H Carbon Dioxide 20.0 L Anion Gap 9 BUN 26 H Creatinine 0.90 Est GFR (MDRD) Af Amer 85 Est GFR (MDRD) Non-Af 70 BUN/Creatinine Ratio 28.9 H Glucose 244 H Calcium 9.2 Troponin I High Sens 7 7 Radiography Diagnostic Testing: Clinical Impression(s) from Imaging Studies Chest X-Ray 08/06/22 18:39 IMPRESSION: No radiographic evidence of acute cardiopulmonary disease. Electronically Signed: Gustavo Dejesus MD at 19:12 EST , EKG Initial EKG: Comments: 78 bpm, no ST elevation, sinus rhythm with PACs, left bundle branch block. EKG reviewed and interpreted by attending ED physician. <Dr. Arjun Ortez, DO - Last Filed: 08/06/22 23:53> [facility] Lab Data Labs: Laboratory Results - last 24 hr 08/06/22 08/06/22 08/06/22 18:00 18:00 20:26 WBC 6.4 RBC 4.26 Hgb 13.6 Hct 41.2 MCV 96.7 MCH 31.9 MCHC 33.0 RDW Std Deviation 47.3 H RDW Coeff of [place] 13.4 Plt Count 198 MPV 10.2 Immature Gran % (Auto) 0.300 Neut % (Auto) 55.6 Lymph % (Auto) 35.2 [place] % (Auto) 6.6 Eos % (Auto) 2.0 Baso % (Auto) 0.3 Absolute Neuts (auto) 3.5 Absolute Lymphs (auto) 2.24 Nucleated RBC % 0 Sodium 138 Potassium 4.0 Chloride 109 H Carbon Dioxide 20.0 L Anion Gap 9 BUN 26 H Creatinine 0.90 Est GFR (MDRD) Af Amer 85 Est GFR (MDRD) Non-Af 70 BUN/Creatinine Ratio 28.9 H Glucose 244 H Calcium 9.2 Troponin I High Sens 7 7 Radiography Diagnostic Testing: Clinical Impression(s) from Imaging Studies Chest X-Ray 08/06/22 18:39 IMPRESSION: No radiographic evidence of acute cardiopulmonary disease. Electronically Signed: Gustavo Dejesus MD at 19:12 EST , Treatment and Re-Evaluation :: I have personally performed a face to face assessment of the patient and have reviewed the DARRION Note. I performed a substantive portion of the visit including all aspects of the following. My wu findings include: History: Patient presents with chest pain that began today while she was at work. Patient states the was helping somebody go to the bathroom when she started having some pain in her chest. Patient describes it as a heaviness. Patient states it is over the substernal area. Patient states she has had a history of coronary artery disease in the past. Patient states she is scheduled for a pacemaker defibrillator placement later this month. Patient denies any shortness of breath. Patient denies any nausea or vomiting. Patient denies any diaphoresis. Exam: Vital signs are stable. Patient is afebrile. Patient is in no acute distress. Oral mucosa is pink and moist. Neck is supple. Trachea is midline. There is no JVD. Heart was regular rate and rhythm. Lungs are clear and equal bilaterally. Abdomen is soft nontender. Cranial nerves II through XII are intact. There are no focal motor or sensory deficits. Medical Decision Making: Differential diagnosis includes cardiac ischemia, cardiac dysrhythmia, congestive heart failure, pneumonia, and pneumothorax. EKG will be obtained to assess for cardiac ischemia and cardiac dysrhythmia. CBC will be obtained to assess for anemia and leukocytosis. Basic metabolic profile will be obtained to assess for glucose, electrolyte abnormality, and renal function. High-sensitivity troponin will be obtained to assess for cardiac ischemia. 2-hour repeat high-sensitivity troponin will be obtained to assess for ongoing cardiac ischemia. Chest x-ray will be obtained to assess for pneumonia and congestive heart failure. EKG was obtained. On my independent interpretation, there is a normal sinus rhythm with a rate of 85. There is a left bundle branch block pattern noted. VT interval was normal at 188. QRS interval was slightly prolonged at 160 milliseconds. QTc interval was slightly prolonged at 504 ms. [place] was borderline left axis deviation at -19. This was unchanged compared to previous EKG dated 04/05/2022. Portable 1 view chest x-ray was obtained. On my independent interpretation, lung benavides are clear. There is normal cardiac silhouette. Bony thorax is normal. There is no acute process noted. Radiologist also interpreted the x-ray and agrees. Initial high-sensitivity troponin was normal at 7. 2-hour repeat high-sensitivity troponin was normal at 7. Patient was advised of her findings. Patient has a HEART score of 5. Because of this, patient will be admitted to the hospital for observation. Patient understands and is agreeable with the plan. Case was discussed with the hospitalist. Will admit the patient to PCU for observation. Discharge Plan Dx/Rx/DC Orders Clinical Impression: Left bundle branch block (LBBB), HFrEF (heart failure with reduced ejection fraction), History of coronary artery stent placement, Chest pain, Shortness of breath Disposition Disposition: Acute Care Hospital [facility] Discharge Date/Time: 08/06/22 22:39
[2022-08-06 20:55] LABS: Troponin-I HS 7 pg/mL (3.0-54.0)
--- NOTE | 2022-08-06 20:56 | EKG12_ITS ---
Test Reason : DYSRHYTHMIA Blood Pressure : / mmHG Vent. Rate : 085 BPM Atrial Rate : 085 BPM P-R Int : 188 ms QRS Dur : 160 ms QT Int : 424 ms P-R-T Axes : 040 -19 077 degrees QTc Int : 504 ms Normal sinus rhythm Left bundle branch block Abnormal ECG Confirmed by GUCCI GEE, PAT ([id number]), society editor JAYLIN FRANK ([id number]) on 08/09/2022 1:50:02 PM Referred By: ARIC Confirmed By:PAT DUCKWORTH MD
--- NOTE | 2022-08-06 21:55 | EKG12_ITS ---
Test Reason : CP ADMISSION Blood Pressure : / mmHG Vent. Rate : 079 BPM Atrial Rate : 079 BPM P-R Int : 202 ms QRS Dur : 164 ms QT Int : 446 ms P-R-T Axes : 045 -13 053 degrees QTc Int : 511 ms Sinus rhythm with Premature supraventricular complexes and with occasional Premature ventricular comp lexes Left bundle branch block Abnormal ECG No previous ECGs available Confirmed by JANAY GEE, JAMEL ([id number]), primer expeditor and drier JAYLIN FRANK ([id number]) on 08/10/2022 8:00:26 AM Referred By: MCKENZIE Confirmed By:JAMEL GUSTAFSON MD
--- NOTE | 2022-08-06 21:55 | HP.PCM.HOS_ITS ---
HPI - General General Date of Admission: 08/06/22 Date of Service: 08/06/22 Chief Complaint: Chest pain HPI Narrative PITO CLARK, is a 51 F with a significant history of heart failure with reduced ejection fraction; and CAD status post stents who presents to the emergency department with excruciating substernal chest pain that started about about 1 hour and 20 minutes before presentation. She describes her chest pain as sharp and a feeling of someone sitting on her chest. She also describe a twisting sensation in her chest. The chest pain radiates to bilateral shoulders and in between her shoulder blades. She denies any ameliorating factors to the pain. Taking a deep breath worsens the pain. Associated with her symptoms is nausea with dry heaving. She denies diaphoresis. She has a productive cough that has not changed since May 2022. Of note patient had stents placed in the coronary in 2020. Also reportedly in she had NSTEMI. Her echocardiogram in April 2022 showed ejection fraction of 30%. Of note patient is scheduled to have a pacemaker with defibrillator place at [facility] on 18 August 2022. [facility] Medical History Atherosclerotic heart disease of [place] coronary artery without angina pectoris Atrial fibrillation Benign hypertension Bilateral interstitial pneumonia Cardiomyopathy, ischemic Chronic low back pain Chronic nausea Chronic pain COPD (chronic obstructive pulmonary disease) Coronary artery disease COVID-19 virus infection Diabetes Difficult intubation Former smoker HFrEF (heart failure with reduced ejection fraction) Hirsutism History of non-ST elevation myocardial infarction (NSTEMI) (09/08/21) Hyperglycemia due to type 2 diabetes mellitus Hyperlipidemia Hypertension Irregular heart beat Kidney stones Left bundle branch block (LBBB) Myocardial infarct Non-ischemic cardiomyopathy Non-ST elevation (NSTEMI) myocardial infarction Nonobstructive atherosclerosis of coronary artery Obesity Paroxysmal atrial fibrillation Seizures Syncope Thyroid nodule Type 2 diabetes mellitus Vomiting Home Medications glipizide 10 mg tablet, extended release 24 hr 10 mg PO BID diabetes 07/11/20 [History Last Taken 08/06/22] dapagliflozin 10 mg tablet (Farxiga) 10 mg PO DAILY this is a dose increase #90 tabs 10/29/21 [Rx Last Taken 08/06/22 10:00] insulin glargine 100 unit/mL (3 mL) subcutaneous pen (Lantus Solostar U-100 Insulin) 10 unit subcut DAILY Check with primary doctor 11/09/21 [History Last Taken 08/06/22 10:00] apixaban 5 mg tablet (Eliquis) 5 mg PO BID #60 tabs 01/27/22 [Rx Last Taken 08/06/22 10:00] hydroxyzine HCl 25 mg tablet 25 - 50 mg PO QHS PRN anxiety 02/24/22 [History Last Taken Unknown] melatonin 10 mg tablet 10 mg PO HS PRN Insomnia 02/24/22 [History Last Taken Unknown] clopidogrel 75 mg tablet (Plavix) 75 mg PO DAILY #90 tabs 04/13/22 [Rx Last Taken 08/06/22] flash glucose scanning reader (PlayArt LabsStyle Sanam 2 Bells) #1 ea 06/09/22 [Rx Last Taken Unknown] flash glucose sensor (FreeStyle Sanam 2 Sensor kit) #2 ea 06/09/22 [Rx Last Taken Unknown] BD Ultra-Fine [place] Pen Needle 32 gauge x 5/32 (pen needle, diabetic) #100 ea 07/29/22 [Rx Last Taken Unknown] atorvastatin 80 mg tablet 80 mg PO QHS Check with primary doctor 08/06/22 [History Last Taken 08/05/22] carvedilol 25 mg tablet 25 mg PO BID Check with primary doctor 08/06/22 [History Last Taken 08/06/22 10:00] diphenhydramine HCl 25 mg tablet 25 mg PO Q4H PRN PRN Allergy Symptoms 08/06/22 [History Last Taken Unknown] furosemide 40 mg tablet 40 mg PO DAILY Check with primary doctor 08/06/22 [History Last Taken 08/06/22] hydrocodone-acetaminophen 5-325mg 5mg-325mg 1 tab PO DAILY Check with primary doctor 08/06/22 [History Last Taken 08/06/22 10:00] insulin lispro 100 unit/mL subcutaneous pen (Humalog KwikPen (U-100) Insulin) 10 unit subcut TIDCM Check with primary doctor 08/06/22 [History Last Taken 08/06/22 10:00] isosorbide mononitrate 30 mg tablet,extended release 24 hr 30 mg PO DAILY Check with primary doctor 08/06/22 [History Last Taken Unknown] methimazole 10 mg tablet 10 mg PO DAILY Check with primary doctor 08/06/22 [History Last Taken 08/06/22 10:00] naloxegol 25 mg tablet (Movantik) 25 mg PO QAM Check with primary doctor 08/06/22 [History Last Taken Unknown] omeprazole magnesium 20 mg tablet,delayed release (Prilosec OTC) 20 mg PO DAILY Check with primary doctor 08/06/22 [History Last Taken Unknown] promethazine 25 mg tablet 25 mg PO TID PRN PRN Nausea And Vomiting 08/06/22 [History Last Taken Unknown] sacubitril 49 mg-valsartan 51 mg tablet (Entresto) 1 tab PO BID Check with primary doctor 08/06/22 [History Last Taken 08/06/22 10:00] tizanidine 4 mg tablet 4 mg PO QHS 08/06/22 [History Last Taken 08/05/22] Allergy/AdvReac Type Severity Reaction Status Date / Time amoxicillin trihydrate AdvReac Vomiting Verified 06/30/22 10:59 [From Augmentin] potassium clavulanate AdvReac Vomiting Verified 06/30/22 10:59 [From Augmentin] Family History Father Myocardial infarction Cancer prostate, leukemia Agent orange exposure Diabetes Sister Diabetes COPD (chronic obstructive pulmonary disease) Surgical History History of appendectomy History of back surgery History of cholecystectomy (1991) History of cholecystectomy History of coronary artery stent placement (05/19/21) History of hysterectomy History of laparoscopy History of left heart catheterization (09/14/21) History of tonsillectomy Status post insertion of nerve stimulator Social History household members: significant other Smoking Status: Former smoker how long ago did patient quit smokin alcohol intake: current alcohol intake frequency: holidays/special occasions only substance use type: does not use caffeine: Yes ROS ROS Narrative Pertinent positives and pertinent negatives as noted in HPI. All other systems were reviewed and are negative Vital Signs Vital Signs Vital Signs: 08/06/22 17:51 08/06/22 18:03 08/06/22 20:07 Temperature 96.7 F L Temperature Source Temporal Pulse Rate 76 80 77 Respiratory Rate 16 14 14 Blood Pressure 146/75 H 146/75 H 162/94 H Blood Pressure Mean 98 98 116 Pulse Ox 100 98 99 Oxygen Delivery Method Room Air Room Air Room Air 08/06/22 21:35 Temperature Temperature Source Pulse Rate 84 Respiratory Rate 17 Blood Pressure 154/81 H Blood Pressure Mean 105 Pulse Ox 97 Oxygen Delivery Method Room Air Physical Exam Narrative Physical exam: General: Appears in distress. Head: Normocephalic, atraumatic, no tenderness Eyes: Vision is grossly intact. EOMI ENT, no trauma, moist mucous membranes, no rhinorrhea Neck: Nontender, No thyromegaly. CVS: Regular rate and rhythm. S1-S2 present. No murmur, gallop or rub. Respiratory : clear to auscultation bilaterally, chest wall nontender, no wheezing Abdomen: Soft, nontender, nondistended, normal bowel sounds, no masses : Deferred Back: Nontender, no CVA tenderness, no midline spinal tenderness, deformities, step-offs Extremities: Nontender full range of motion, no trauma Skin: Normal color, no trauma, abrasions Neuro: Alert, oriented, cranial nerves II through XII grossly intact. Psychiatry: Appears anxious Results Lab / Micro Data Result Diagrams: 08/06/22 18:00 08/06/22 18:00 Labs: Laboratory Results - last 24 hr 08/06/22 18:00: WBC 6.4, RBC 4.26, Hgb 13.6, Hct 41.2, MCV 96.7, MCH 31.9, MCHC 33.0, RDW Std Deviation 47.3 H, RDW Coeff of Tomi 13.4, Plt Count 198, MPV 10.2, Immature Gran % (Auto) 0.300, Neut % (Auto) 55.6, Lymph % (Auto) 35.2, [place] % (Auto) 6.6, Eos % (Auto) 2.0, Baso % (Auto) 0.3, Absolute Neuts (auto) 3.5, Absolute Lymphs (auto) 2.24, Nucleated RBC % 0 08/06/22 18:00: Sodium 138, Potassium 4.0, Chloride 109 H, Carbon Dioxide 20.0 L , Anion Gap 9, BUN 26 H, Creatinine 0.90, Est GFR (MDRD) Af Amer 85, Est GFR (MDRD) Non-Af 70, BUN/Creatinine Ratio 28.9 H, Glucose 244 H, Calcium 9.2, Troponin I High Sens 7 08/06/22 20:26: Troponin I High Sens 7 Radiology Impression Chest X-Ray 08/06/22 18:39 IMPRESSION: No radiographic evidence of acute cardiopulmonary disease. Electronically Signed: Gustavo Dejesus MD at 19:12 EST , Assessment & Plan Assessment/Plan (1) Chest pain: (2) Shortness of breath: PLAN: Plan Chest pain Place on a monitored bed at [facility] Actual CXR image was independently visualized. No acute cardiopulmonary process was noted. Actual EKG tracing was independently visualized. EKG tracing showed sinus rhythm with no ST or T wave abnormalities On home Plavix and Eliquis. Patient initially hesitant to take full dose aspirin at the emergency department. With acute symptoms advised to take full dose aspirin. ASA 81 mg p.o. daily ordered We will check lipid panel. High intensity statin continued. High sensitivity troponin negative, trend. Patient does not think that she cannot walk on a treadmill. Chemical test in the AM if the cardiac enzymes are negative and if chest pain is stable. Carvedilol continued. Imdur continued. Last echocardiogram was April 2022. Limited echocardiogram to check EF done. Heart failure with reduced ejection fraction Chronic Echocardiogram on 04/22/2022 showed EF of 30%. No signs of florid heart failure. However patient is shortness of breath. Echocardiogram ordered. Lasix continued. Beta-timothy and Entresto continued. Paroxysmal A-fib In sinus rhythm on presentation Carvedilol and Eliquis continued. Diabetes mellitus Blood Glucose is not within goal Basal insulin continued. Glipizide continued ordered prandial insulin at this time. Accu-Chek with correction scale insulin ordered. Hypertension Blood pressure is not within goal Home blood pressure medication continued. As needed hydralazine ordered. Trend blood pressure and adjust blood pressure medications. DVT prophylaxis Therapeutic Eliquis for A-fib continued Charges/Coding Visit Charges Inpatient E&M: 49571 Init Hosp L3
[2022-08-06] MEDS: LORazepam 1 MG Tablet PO (22:25)
[2022-08-06] MEDS: Aspirin 325 MG Tablet PO (22:25)
--- NOTE | 2022-08-06 22:43 | ECHOLC_ITS ---
Reason For Study: CHEST PAIN Procedure This was a limited 2D transthoracic echocardiogram. The study was technically difficult. Contrast injection was performed. Limited views were obtained. Exam performed portable in patient room. Left Ventricle Mildly dilated left ventricle. Moderate segmental systolic dysfunction (see wall motion). The estimated ejection fraction is 35 %. Unable to assess diastolic dysfunction. Infero-Basal: Akinetic. Basal inferoseptal: Akinetic. Basal anteroseptal: Hypokinetic. Mid-Anterior : Hypokinetic. Mid- Lateral : Hypokinetic. Mid-Posterior: Hypokinetic. Mid-Inferior: Akinetic. Mid-inferoseptal : Akinetic. Mid-anteroseptal : Hypokinetic. [place] : Hypokinetic. Right Ventricle Normal RV size. Normal systolic function. Atria Normal left atrium. Normal right atrium. Mitral Valve There is no mitral annular calcification. Normal mitral valve. Tricuspid Valve Normal tricuspid valve. Aortic Valve Trisinus/trileaflet aortic valve. Normal aortic valve. Pulmonic Valve The pulmonic valve is not well visualized. Great Vessels Normal sized aortic root. Pericardium/Pleural No pericardial effusion. Medication Diluted definity 3.0ml given slow IV push to enhance endocardial definition. MMode/2D Measurements & Calculations LVIDd: 5.3 cm IVSd: 1.2 cm Ao root diam: 3.0 cm LVIDs: 4.3 cm LVPWd: 1.4 cm RVDd: 3.2 cm FS: 18.5 % LAV(MOD-bp): 38.6 ml LA A4 area: 14.8 cm2 LA dimension(2D): 3.8 cm LAV(MOD-bp) Indexed: 19.0 ml/m2 LAV(MOD-sp2): 35.2 ml LAV(MOD-sp4): 37.9 ml ECHO/Echo Limited w/Contrast Interpretation Summary The study was technically difficult. Contrast injection was performed. Limited views were obtained. Mildly dilated left ventricle. Moderate segmental systolic dysfunction (see wall motion). The estimated ejection fraction is 35 %. Unable to assess diastolic dysfunction. Ordering Physician: Patel Nguyen Referring Physician: Margo Tatum Performed By: Elisa Peralta, RDJAMMIE, RVT
[2022-08-07] VITALS (9 sets, daily range): BP systolic 94–132; BP diastolic 45–71; PULSE 67–75; RESP 16–18; TEMP 36.4–36.6; O2SAT 94–100
[2022-08-07] MEDS: Atorvastatin Calcium 80 MG Tablet PO (00:33)
[2022-08-07] MEDS: APIXABAN 5 MG TABLET PO ×2 (00:33→11:42)
[2022-08-07] MEDS: Carvedilol 25 MG Tablet PO ×3 (00:33→16:51)
[2022-08-07] MEDS: tiZANidine HCl 2 MG Tablet 4 MG PO (00:34)
[2022-08-07] MEDS: SACUBITRIL/VALSARTAN 49-51 MG TABLET 1 EACH PO ×2 (00:34→11:41)
[2022-08-07 01:01] LABS: Bedside Glucose 157 mg/dL (74-106)
[2022-08-07 01:16] LABS: Troponin-I HS 8 pg/mL (3.0-54.0)
[2022-08-07] MEDS: Clopidogrel Bisulfate 75 MG Tablet PO ×2 (05:35→11:42)
[2022-08-07] MEDS: Aspirin 81 MG TAB.CHEW PO (05:35)
[2022-08-07] MEDS: Insulin Lispro 100 UNIT/ML INSULN.PEN SC ×2 (05:35→11:49)
--- NOTE | 2022-08-07 05:55 | EKG12_ITS ---
Test Reason : AM EKG Blood Pressure : / mmHG Vent. Rate : 065 BPM Atrial Rate : 065 BPM P-R Int : 228 ms QRS Dur : 168 ms QT Int : 524 ms P-R-T Axes : 040 -12 065 degrees QTc Int : 544 ms Sinus rhythm with 1st degree A-V block with Premature atrial complexes Left bundle branch block Abnormal ECG When compared with ECG of 06-AUG-2022 21:02, MANUAL COMPARISON REQUIRED, DATA IS UNCONFIRMED Confirmed by JANAY GEE, JAMEL ([id number]), communications editor JAYLIN FRANK ([id number]) on 08/10/2022 8:10:04 AM Referred By: Confirmed By:JAMEL GUSTAFSON MD
[2022-08-07 06:45] LABS: Bedside Glucose 212 mg/dL (74-106)
[2022-08-07 07:47] LABS: Absolute Lymphocyte Count 2.12 X10^3/uL (0.83-4.51); Absolute Neutrophil Count 2.6 X10^3/uL (2.0-7.7); Basophil# 0.01 X10^3/uL; Basophil% 0.2 % (0-1); Eosinophil# 0.11 X10^3/uL; Eosinophils% 2.1 % (0-5); Hematocrit 38.6 % (37-47); Hemoglobin 12.9 g/dL (12.0-15.0); Lymphocyte # 2.12 X10^3/ul (0.83-4.51); Mean Corp Hgb Conc 33.4 g/dL (32-36); Mean Corpuscular Hgb 31.6 pg (27.0-32.0); Mean Corpuscular Volume 94.6 fL (81-99); Mean Platelet Vol. 10.3 fl (6.2-12.0); Monocyte# 0.37 X10^3/uL; Monocyte% 7.2 % (0-10); NRBC Flagged by Analyzer 0 % (0-5); Neutrophil # 2.55 X10^3/uL (2.7-7.7); Neutrophil % 49.3 % (47-70); Platelet Count 178 K/mm3 (150-450); RBC Distribution Width CV 13.2 % (11.6-14.6); RBC Distribution Width SD 45.5 fl (35.1-43.9); Red Blood Count 4.08 M/mm3 (4.2-5.4); White Blood Count 5.2 K/mm3 (4.4-11.0)
[2022-08-07 08:48] LABS: Anion Gap 8 (5-15); BUN 28 mg/dL (7-18); BUN/Creat Ratio 32.2 RATIO (10-20); Calcium,Total 8.9 mg/dL (8.5-10.1); Chloride 111 mmol/L (98-107); Cholesterol 141 mg/dL (200); Creatinine, Serum 0.87 mg/dL (0.55-1.02); EST Glomerular Filtration Rate 73 mL/min (>60); Est Glom Filt Rate - Afr Amer 88 mL/min (>60); Estimated Creatinine Clearance 65.32 ml/min; Glucose 196 mg/dL (74-106); High Density Lipoprotein 51 mg/dL; Potassium 3.5 mmol/L (3.5-5.1); Sodium Level 140 mmol/L (136-145); Triglycerides 97 mg/dL; Very Low Density Lipoprotein 19 mg/dL (5-40)
--- NOTE | 2022-08-07 11:14 | STRESSREP_ITS ---
Stress Test Report Date: 08-07-2022 Procedure: Pharmacologic stress nuclear imaging study Indications: Chest pain; CAD; cardiomyopathy; atrial fibrillation; left bundle branch block; pending [facility] EP evaluation for ICD Consent: Per the patient Procedure: The patient underwent pharmacologic (Regadenoson 0.4mg ) evaluation with a peak heart rate of 85 beats per minute (50%predicted maximal heart rate) and a resting blood pressure of 126/78 mmHg and a peak blood pressure of 126/78 mmHg. The baseline ECG demonstrated sinus rhythm; left bundle branch block. The peak pharmacologic ECG demonstrated continued left bundle branch block. There was an occasional PAC during recovery. There was no complaint of chest discomfort during pharmacologic infusion or recovery. The examination was discontinued secondary to completion of protocol. Impression: 1. Pharmacologic (Regadenoson) evaluation 2. Peak pharmacologic ECG with continued left bundle branch block. 3. There was an occasional PAC during recovery. 4. Nuclear images pending Myocardial perfusion imaging study: Technique: The patient was injected with 12.0 millicuries of technetium 99m Cardiolite and subsequently rest SPECT Cardiolite nuclear imaging was obtained in the horizontal long, vertical long, and short axis views. The patient underwent pharmacologic (Regadenoson) evaluation with a peak heart rate of 85 beats per minute (50% percent predicted maximal heart rate) and a resting blood pressure of 126/78 mmHg and a peak blood pressure of 126/78 mmHg. The patient was injected with 36.0 millicuries of technetium 99m Cardiolite and subsequently stress SPECT Cardiolite nuclear imaging was obtained in the horizontal long, vertical long, and short axis views. A gated Cardiolite study at peak stress was obtained. Interpretation: Rest and stress SPECT Cardiolite nuclear imaging status post realignment, normalization, and attenuation correction demonstrate the appearance of d iminished myocardial perfusion/tracer uptake in portions of the mid to distal anteroseptal/septal apical segments which appears to be more prominent at rest as opposed to stress and/or without significant change between rest and stress. There is diminished end-systolic thickening and brightening. The gated Cardiolite study demonstrates diminished myocardial thickening and inward wall motion. The reported LVEF is 37%. Impression: 1. Rest and stress SPECT her nuclear imaging demonstrate myocardial perfusion changes with diminished myocardial perfusion/tracer uptake in portions of the mid to distal anteroseptal/septal apical segments which appears to be more prominent at rest as opposed to stress and/or without significant change between rest and stress appearing compatible with the patient's underlying left bundle branch block pattern with no myocardial perfusion changes considered diagnostic for associated stress-induced myocardial ischemia. 2. The gated Cardiolite study reports an LVEF of 37%. This note was generated with [employer] software. It may contain incorrect words, spelling, and punctuation that were not noted in checking the note before signing.
[2022-08-07] MEDS: glipiZIDE XL 5 MG Tablet 10 MG PO ×2 (11:41→16:51)
[2022-08-07] MEDS: Furosemide 40 MG Tablet PO (11:41)
[2022-08-07] MEDS: methIMAzole 10 MG TABLET PO (11:43)
[2022-08-07] MEDS: Empagliflozin 25 MG Tablet PO (11:43)
[2022-08-07] MEDS: Isosorbide Mononitrate 30 MG Tablet PO (11:43)
[2022-08-07] MEDS: Pantoprazole Sodium 20 MG Tablet PO (11:43)
[2022-08-07] MEDS: HYDROcodone Bitartrate/Apap 5/325 Tablet PO (11:48)
[2022-08-07] MEDS: Insulin Glargine-YFGN 100 UNIT/ML Pen 10 UNIT SC (11:49)
[2022-08-07 12:10] LABS: Bedside Glucose 171 mg/dL (74-106)
--- NOTE | 2022-08-07 16:37 | DCINST_ITS ---
Discharge Instructions Diet Discharge Diet: - (DASH diet) Activity Discharge Activity: Return to Normal Activity Follow Up Care Test Results: Test results from this visit will be discussed in further detail at your follow- up appointment, if applicable. 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 -For any concerning signs or symptoms please call 911 or proceed to the nearest emergency department Discharge Orders/Prescriptions Prescriptions: Continued glipizide 10 mg tablet extended release 24hr 10 mg PO BID Label Comments: take 1 tablet by mouth twice a day insulin glargine [Lantus Solostar U-100 Insulin] 100 unit/mL (3 mL) insulin pen 10 unit subcut DAILY melatonin 10 mg tablet 10 mg PO HS PRN (Reason: Insomnia) hydroxyzine HCl 25 mg tablet 25 - 50 mg PO QHS PRN (Reason: anxiety) clopidogrel [Plavix] 75 mg tablet 75 mg PO DAILY Qty: 90 3RF (DME) FreeStyle Sanam 2 Sensor Kit See Rx Instructions .Route Qty: 2 5RF Rx Instructions: 1 sensor q 14 days (DME) FreeStyle Sanam 2 [place] Misc See Rx Instructions .Route Qty: 1 0RF Rx Instructions: As directed tizanidine 4 mg tablet 4 mg PO QHS Label Comments: take 1 tablet by mouth every evening diphenhydramine HCl 25 mg Tablet 25 mg PO Q4H PRN PRN (Reason: Allergy Symptoms) promethazine 25 mg tablet 25 mg PO TID PRN PRN (Reason: Nausea And Vomiting) Label Comments: take 1 tablet by mouth three times a day if needed for nausea and vomiting furosemide 40 mg tablet 40 mg PO DAILY atorvastatin 80 mg tablet 80 mg PO QHS carvedilol 25 mg tablet 25 mg PO BID Rx Instructions: must administer with a meal/food hydrocodone-acetaminophen 5-325 mg tablet 1 tab PO DAILY isosorbide mononitrate 30 mg tablet extended release 24 hr 30 mg PO DAILY methimazole 10 mg tablet 10 mg PO DAILY insulin lispro [Humalog KwikPen Insulin] 100 unit/mL insulin pen 10 unit subcut TIDCM omeprazole magnesium [Prilosec OTC] 20 mg tablet,delayed release (DR/EC) 20 mg PO DAILY Movantik 25 mg tablet 25 mg PO QAM Rx Instructions: must be taken on empty stomach; no food 1 hr after or 2-3 hrs before dose Entresto 49-51 mg tablet 1 tab PO BID Farxiga 10 mg tablet 10 mg PO DAILY Qty: 90 3RF Eliquis 5 mg tablet 5 mg PO BID Qty: 60 11RF (DME) pen needle, diabetic [BD Ultra-Fine [place] Pen Needle] 32 gauge x 5/32 needle See Rx Instructions .Route Qty: 100 5RF Rx Instructions: 4x/day Referrals / Follow Up: Cr Ho MD [Med Staff - Active Staff] - See Referral Note (You will need to follow-up with cardiology upon discharge, please call the office of Dr. Ho upon discharge to schedule your hospital follow-up appointment (ph [phone])) Margo Tatum DO [Primary Care Provider] - Within 1 Week Disposition Disposition (needs filled in before D/C Order can be placed): Home, Self Care
--- NOTE | 2022-08-07 17:02 | PCM.DC.SUM ---
Providers Date of Admission: 08/06/22 Date of Discharge: 08/07/22 Primary Care Physician: Dr. Margo Tatum DO Reason For Visit: CHEST PAIN Diagnosis Discharge Diagnosis (1) Chest pain: Status: Acute Code(s): R07.9 - Chest pain, unspecified (2) Shortness of breath: Status: Acute Code(s): R06.02 - Shortness of breath Plan #chronic HFrEF #paroxysmal afib #Retention #Type 2 diabetes mellitus #Hypothyroidism Medications at Discharge Home Medications glipizide 10 mg tablet, extended release 24 hr 10 mg PO BID diabetes 07/11/20 dapagliflozin 10 mg tablet (Farxiga) 10 mg PO DAILY this is a dose increase #90 tabs 10/29/21 insulin glargine 100 unit/mL (3 mL) subcutaneous pen (Lantus Solostar U-100 Insulin) 10 unit subcut DAILY Check with primary doctor 11/09/21 apixaban 5 mg tablet (Eliquis) 5 mg PO BID #60 tabs 01/27/22 hydroxyzine HCl 25 mg tablet 25 - 50 mg PO QHS PRN anxiety 02/24/22 melatonin 10 mg tablet 10 mg PO HS PRN Insomnia 02/24/22 clopidogrel 75 mg tablet (Plavix) 75 mg PO DAILY #90 tabs 04/13/22 flash glucose scanning reader ([employer] Music[employer] Sanam 2 [place]) #1 ea 06/09/22 flash glucose sensor (FreeStyle Sanam 2 Sensor kit) #2 ea 06/09/22 BD Ultra-Fine [place] Pen Needle 32 gauge x 5/32 (pen needle, diabetic) #100 ea 07/29/22 atorvastatin 80 mg tablet 80 mg PO QHS Check with primary doctor 08/06/22 carvedilol 25 mg tablet 25 mg PO BID Check with primary doctor 08/06/22 diphenhydramine HCl 25 mg tablet 25 mg PO Q4H PRN PRN Allergy Symptoms 08/06/22 furosemide 40 mg tablet 40 mg PO DAILY Check with primary doctor 08/06/22 hydrocodone-acetaminophen 5-325mg 5mg-325mg 1 tab PO DAILY Check with primary doctor 08/06/22 insulin lispro 100 unit/mL subcutaneous pen (Humalog KwikPen (U-100) Insulin) 10 unit subcut TIDCM Check with primary doctor 08/06/22 isosorbide mononitrate 30 mg tablet,extended release 24 hr 30 mg PO DAILY Check with primary doctor 08/06/22 methimazole 10 mg tablet 10 mg PO DAILY Check with primary doctor 08/06/22 naloxegol 25 mg tablet (Movantik) 25 mg PO QAM Check with primary doctor 08/06/22 omeprazole magnesium 20 mg tablet,delayed release (Prilosec OTC) 20 mg PO DAILY Check with primary doctor 08/06/22 promethazine 25 mg tablet 25 mg PO TID PRN PRN Nausea And Vomiting 08/06/22 sacubitril 49 mg-valsartan 51 mg tablet (Entresto) 1 tab PO BID Check with primary doctor 08/06/22 tizanidine 4 mg tablet 4 mg PO QHS 08/06/22 Hospital Course Procedures - (Stress test, echo) Summary of Care Provided Minutes Spent on Discharge: 32 Hospital Course: PITO CLARK, is a 51 F with a significant history of heart failure with reduced ejection fraction. Coronary disease, paroxysmal atrial fibrillation, hypothyroidism on methimazole, diabetes mellitus who presented to [facility] 08/06/2022 with sharp chest pain that felt sometimes like someone sitting on her chest and somewhat of a twisting sensation. She has a history of stents and has had 2 heart caths since then without need for repeated intervention and follows actively with cardiology. Troponins were normal and EKG with no new ST changes. Notably she is supposed to have a pacemaker with defibrillator at [facility] on August 18, 2022. She was admitted for echocardiogram and stress test. Stress test showed no myocardial perfusion changes considered diagnostic for associated stress-induced myocardial ischemia. Echo largely unchanged from previous. Patient overall feeling better this evening and is comfortable with discharge with outpatient follow-up. Discharge instructions as followed: -Continue home medications -Please call your quality engineer medical device office upon discharge to schedule hospital follow-up appointment -Please call your primary care provider's office upon discharge to schedule a hospital follow up within 1 week. -For any concerning signs or symptoms please call 911 or proceed to the nearest emergency department Physical Exam Narrative General: Alert, oriented, no apparent distress HEENT: Atraumatic, normocephalic Eyes: Anicteric, normal conjunctiva, extraocular movements grossly intact Neck: Supple Respiratory: Clear to auscultation bilaterally, normal respiratory effort Cardiovascular: Regular rate GI: Soft, nontender, nondistended Extremities: No edema Musculoskeletal: Moving all extremities Neuro: No overt focal neurological deficits Skin: No rashes appreciated Psych: Cooperative Weight / BMI Weight Weight: 98.7 kg Body Mass Index (BMI) 37.3 ABG / Lab / Microbiology Data Result Diagrams: 08/07/22 06:50 08/07/22 06:50 Laboratory: Laboratory Results - last 24 hr 08/06/22 18:00: WBC 6.4, RBC 4.26, Hgb 13.6, Hct 41.2, MCV 96.7, MCH 31.9, MCHC 33.0, RDW Std Deviation 47.3 H, RDW Coeff of Tomi 13.4, Plt Count 198, MPV 10.2, Immature Gran % (Auto) 0.300, Neut % (Auto) 55.6, Lymph % (Auto) 35.2, Barron % (Auto) 6.6, Eos % (Auto) 2.0, Baso % (Auto) 0.3, Absolute Neuts (auto) 3.5, Absolute Lymphs (auto) 2.24, Nucleated RBC % 0 08/06/22 18:00: Sodium 138, Potassium 4.0, Chloride 109 H, Carbon Dioxide 20.0 L, Anion Gap 9, BUN 26 H, Creatinine 0.90, Est GFR (MDRD) Af Amer 85, Est GFR (MDRD) Non-Af 70, BUN/Creatinine Ratio 28.9 H, Glucose 244 H, Calcium 9.2, Troponin I High Sens 7 08/06/22 20:26: Troponin I High Sens 7 08/07/22 00:34: Troponin I High Sens 8 08/07/22 00:37: POC Glucose 157 H 08/07/22 05:32: POC Glucose 212 H 08/07/22 06:50: WBC 5.2, RBC 4.08 L, Hgb 12.9, Hct 38.6, MCV 94.6, MCH 31.6, MCHC 33.4, RDW Std Deviation 45.5 H, RDW Coeff of Tomi 13.2, Plt Count 178, MPV 10.3, Immature Gran % (Auto) 0.200, Neut % (Auto) 49.3, Lymph % (Auto) 41.0, Barron % (Auto) 7.2, Eos % (Auto) 2.1, Baso % (Auto) 0.2, Absolute Neuts (auto) 2.6, Absolute Lymphs (auto) 2.12, Nucleated RBC % 0 08/07/22 06:50: Sodium 140, Potassium 3.5, Chloride 111 H, Carbon Dioxide 21.0, Anion Gap 8, BUN 28 H, Creatinine 0.87, Estim Creat Clear Calc 65.32, Est GFR (MDRD) Af Amer 88, Est GFR (MDRD) Non-Af 73, BUN/Creatinine Ratio 32.2 H, Glucose 196 H, Calcium 8.9, Triglycerides 97, Cholesterol 141, LDL Cholesterol 71, VLDL Cholesterol 19, HDL Cholesterol 51 08/07/22 11:48: POC Glucose 171 H Radiography Diagnostic Testing: Radiology Impression Chest X-Ray 08/06/22 18:39 IMPRESSION: No radiographic evidence of acute cardiopulmonary disease. Electronically Signed: Gustavo Dejesus MD at 19:12 EST , Echocardiogram 08/06/22 22:43 Interpretation Summary The study was technically difficult. Contrast injection was performed. Limited views were obtained. Mildly dilated left ventricle. Moderate segmental systolic dysfunction (see wall motion). The estimated ejection fraction is 35 %. Unable to assess diastolic dysfunction. Ordering Physician: Patel Nguyen Referring Physician: Margo Tatum Performed By: Elisa Peralta, NEEL, RVT D/C Instructions Discharge Diet: - (DASH diet) Meaningful Use Info Meaningful Use Diagnoses (Choose all that apply): None applicable Discharge Plan Admission Admit Date/Time: 08/06/22 21:46 Primary Reason for Your Visit: Chest pain Attending Provider: Suma Mathew Primary Care Provider: Margo Tatum Consulting Providers: Patel Nguyen Instructions Patient Instructions: ED Chest Pain, Noncardiac Additional Instructions / Restrictions: -Continue home medications -Please call your quality engineer medical device office upon discharge to schedule hospital follow-up appointment -Please call your primary care provider's office upon discharge to schedule a hospital follow up within 1 week. -For any concerning signs or symptoms please call 911 or proceed to the nearest emergency department Discharge Orders/Prescriptions Prescriptions: Continued glipizide 10 mg tablet extended release 24hr 10 mg PO BID Label Comments: take 1 tablet by mouth twice a day insulin glargine [Lantus Solostar U-100 Insulin] 100 unit/mL (3 mL) insulin pen 10 unit subcut DAILY melatonin 10 mg tablet 10 mg PO HS PRN (Reason: Insomnia) hydroxyzine HCl 25 mg tablet 25 - 50 mg PO QHS PRN (Reason: anxiety) clopidogrel [Plavix] 75 mg tablet 75 mg PO DAILY Qty: 90 3RF (DME) FreeStyle Sanam 2 Sensor Kit See Rx Instructions .Route Qty: 2 5RF Rx Instructions: 1 sensor q 14 days (DME) FreeStyle Sanam 2 [place] Misc See Rx Instructions .Route Qty: 1 0RF Rx Instructions: As directed tizanidine 4 mg tablet 4 mg PO QHS Label Comments: take 1 tablet by mouth every evening diphenhydramine HCl 25 mg Tablet 25 mg PO Q4H PRN PRN (Reason: Allergy Symptoms) promethazine 25 mg tablet 25 mg PO TID PRN PRN (Reason: Nausea And Vomiting) Label Comments: take 1 tablet by mouth three times a day if needed for nausea and vomiting furosemide 40 mg tablet 40 mg PO DAILY atorvastatin 80 mg tablet 80 mg PO QHS carvedilol 25 mg tablet 25 mg PO BID Rx Instructions: must administer with a meal/food hydrocodone-acetaminophen 5-325 mg tablet 1 tab PO DAILY isosorbide mononitrate 30 mg tablet extended release 24 hr 30 mg PO DAILY methimazole 10 mg tablet 10 mg PO DAILY insulin lispro [Humalog KwikPen Insulin] 100 unit/mL insulin pen 10 unit subcut TIDCM omeprazole magnesium [Prilosec OTC] 20 mg tablet,delayed release (DR/EC) 20 mg PO DAILY Movantik 25 mg tablet 25 mg PO QAM Rx Instructions: must be taken on empty stomach; no food 1 hr after or 2-3 hrs before dose Entresto 49-51 mg tablet 1 tab PO BID Farxiga 10 mg tablet 10 mg PO DAILY Qty: 90 3RF Eliquis 5 mg tablet 5 mg PO BID Qty: 60 11RF (DME) pen needle, diabetic [BD Ultra-Fine [place] Pen Needle] 32 gauge x 5/32 needle See Rx Instructions .Route Qty: 100 5RF Rx Instructions: 4x/day Referrals / Follow Up: Cr Ho MD [Med Staff - Active Staff] - See Referral Note (You will need to follow-up with cardiology upon discharge, please call the office of Dr. Ho upon discharge to schedule your hospital follow-up appointment (ph [phone])) Margo Tatum DO [Primary Care Provider] - Within 1 Week Disposition Disposition (needs filled in before D/C Order can be placed): Home, Self Care Charges/Coding Visit Charges Inpatient E&M: 52926 Disch Hosp >30min
== END 2022-08-07 17:02 | disposition home or self-care (01) ==
LOC: ED 21:52 → PCU 22:49
PROVIDERS: Physician Assistant; Admitting Provider Hospitalist; Emergency Provider Emergency Medicine; PCP Family Medicine; Visit Provider Internal Medicine
DX: I11.0 Hypertensive heart disease with heart failure (principal); J44.9 Chronic obstructive pulmonary disease, unspecified; I50.22 Chronic systolic (congestive) heart failure; I42.8 Other cardiomyopathies; I48.0 Paroxysmal atrial fibrillation; E11.9 Type 2 diabetes mellitus without complications; Z79.4 Long term (current) use of insulin; Z86.16 Personal history of COVID-19; E78.5 Hyperlipidemia, unspecified; Z95.5 Presence of coronary angioplasty implant and graft; Z79.01 Long term (current) use of anticoagulants; I25.2 Old myocardial infarction; I25.10 Atherosclerotic heart disease of native coronary artery without angina pectoris; I44.7 Left bundle-branch block, unspecified; Z87.891 Personal history of nicotine dependence; E03.9 Hypothyroidism, unspecified; Z79.899 Other long term (current) drug therapy; Z79.84 Long term (current) use of oral hypoglycemic drugs
CPT/HCPCS: 36415; 71045; 78452; 80048; 80061; 82962; 84484; 85025; 93005; 93017; 93308; 99221; 99285; A9500; Q9957; A4216; C8924; G0378; J2785

== ENCOUNTER 2022-09-02 09:25 | Emergency (ER) | payer MEDICARE, MEDICAID, SELFPAY ==
[2022-02-26 14:11] VITALS: BMI 35.5
[2022-09-02 09:26] VITALS: BP 137/72; PULSE 74; RESP 16; TEMP 36.8; O2SAT 100; BMI 38.2
--- NOTE | 2022-09-02 09:53 | VDUE_ITS ---
Reason For Study: Swelling Left Proximal Left jugular vein is spontaneous, widely patent, phasic, with no intraluminal echogenicity noted. Left subclavian vein is spontaneous, widely patent, phasic, with no intraluminal echogenicity noted. Unable to acquire Subclavian V compression due to patient's intolerance to pain. Left Arm Left axillary vein is spontaneous, patent, phasic, competent, compressible and demonstrates augmentation. Left brachial vein is compressible. Cephalic vein intraluminal echogenicity extends fromproximal portion to mid forearm. Left basilic vein is compressible. Left Lower Arm Left radial vein is compressible. Left ulnar vein is compressible. Patient Safety Preliminary given to ED Nurse repsonsible for patient. VL/Venous Duplex US, Unilateral Interpretation Summary No evidence for acute deep venous thrombosis[left] upper extremity with patent and compressible cephalic and basilic veins. Superficial thrombophlebitis left mid forearm to up per arm cephalic vein. Patent and compressible left basilic vein Referred the technical limitations unable to acquire the subclavian vein due to the patient's intolerance. Ordering Physician: Víctor Alvarez Referring Physician: Margo Tatum Performed By: Sam Partida RVT ???
--- NOTE | 2022-09-02 09:55 | EDS_ITS ---
HPI History of Present Illness HPI Narrative: Left arm pain and swelling after a pacemaker placed 2 weeks ago. No fever or chills. There is redness to the arm. No prior history. She is on a blood thinner Eliquis. Chief Complaint: Upper Extremity Injury Informant: patient Occured/Mechanism Mechanism/Context: No injury and No blunt trauma Onset/Context/Timing Onset: Today and Yesterday Context: Gradual Onset Timing: Continuous Quality of Pain: Dull and Aching Current Severity: Mild Maximum Severity: Mild Associated Symptoms Associated Symptoms: Negative for Parasthesia, Weakness or Loss of Funtion Narrative Narrative: 51-year-old female with significant past medical history of cardiac disease and A-fib on Eliquis. She is also diabetic. 2 weeks ago she had a pacemaker defibrillator placed at [facility] on her left chest wall. She had done well. Has developed swelling and redness to her left arm. Denies any fever or chills. No prior history. Prior similar symptoms: No Recent Illness/Hospitalization: No PFSH PFSH Medical History Atherosclerotic heart disease of [place] coronary artery without angina pectoris Atrial fibrillation Benign hypertension Bilateral interstitial pneumonia Cardiomyopathy, ischemic Chest pain Chronic low back pain Chronic nausea Chronic pain COPD (chronic obstructive pulmonary disease) Coronary artery disease COVID-19 virus infection Diabetes Difficult intubation Former smoker HFrEF (heart failure with reduced ejection fraction) Hirsutism History of non-ST elevation myocardial infarction (NSTEMI) (09/08/21) Hyperglycemia due to type 2 diabetes mellitus Hyperlipidemia Hypertension Irregular heart beat Kidney stones Left bundle branch block (LBBB) Myocardial infarct Non-ischemic cardiomyopathy Non-ST elevation (NSTEMI) myocardial infarction Nonobstructive atherosclerosis of coronary artery Obesity Paroxysmal atrial fibrillation Presence of cardiac 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 therapy defibrillator (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) Seizures Syncope Thyroid nodule Type 2 diabetes mellitus Vomiting Home Medications glipizide 10 mg tablet, extended release 24 hr 10 mg PO BID diabetes 07/11/20 [History Last Taken 08/06/22] dapagliflozin 10 mg tablet (Farxiga) 10 mg PO DAILY this is a dose increase #90 tabs 10/29/21 [Rx Last Taken 08/06/22 10:00] insulin glargine 100 unit/mL (3 mL) subcutaneous pen (Lantus Solostar U-100 Insulin) 10 unit subcut DAILY Check with primary doctor 11/09/21 [History Last Taken 08/06/22 10:00] apixaban 5 mg tablet (Eliquis) 5 mg PO BID #60 tabs 01/27/22 [Rx Last Taken 08/06/22 10:00] hydroxyzine HCl 25 mg tablet 25 - 50 mg PO QHS PRN anxiety 02/24/22 [History Last Taken Unknown] melatonin 10 mg tablet 10 mg PO HS PRN Insomnia 02/24/22 [History Last Taken Unknown] clopidogrel 75 mg tablet (Plavix) 75 mg PO DAILY #90 tabs 04/13/22 [Rx Last Taken 08/06/22] flash glucose scanning reader (Sensory AnalyticsStyle Sanam 2 [place]) #1 ea 06/09/22 [Rx Last Taken Unknown] flash glucose sensor (FreeStyle Sanam 2 Sensor kit) #2 ea 06/09/22 [Rx Last Taken Unknown] BD Ultra-Fine [place] Pen Needle 32 gauge x 5/32 (pen needle, diabetic) #100 ea 07/29/22 [Rx Last Taken Unknown] atorvastatin 80 mg tablet 80 mg PO QHS Check with primary doctor 08/06/22 [History Last Taken 08/05/22] diphenhydramine HCl 25 mg tablet 25 mg PO Q4H PRN PRN Allergy Symptoms 08/06/22 [History Last Taken Unknown] furosemide 40 mg tablet 40 mg PO DAILY Check with primary doctor 08/06/22 [History Last Taken 08/06/22] hydrocodone-acetaminophen 5-325mg 5mg-325mg 1 tab PO DAILY Check with primary doctor 08/06/22 [History Last Taken 08/06/22 10:00] insulin lispro 100 unit/mL subcutaneous pen (Humalog KwikPen (U-100) Insulin) 10 unit subcut TIDCM Check with primary doctor 08/06/22 [History Last Taken 10:00] isosorbide mononitrate 30 mg tablet,extended release 24 hr 30 mg PO DAILY Check with primary doctor 08/06/22 [History Last Taken Unknown] methimazole 10 mg tablet 10 mg PO DAILY Check with primary doctor 08/06/22 [History Last Taken 08/06/22 10:00] naloxegol 25 mg tablet (Movantik) 25 mg PO QAM Check with primary doctor 08/06/22 [History Last Taken Unknown] omeprazole magnesium 20 mg tablet,delayed release (Prilosec OTC) 20 mg PO DAILY Check with primary doctor 08/06/22 [History Last Taken Unknown] promethazine 25 mg tablet 25 mg PO TID PRN PRN Nausea And Vomiting 08/06/22 [History Last Taken Unknown] sacubitril 49 mg-valsartan 51 mg tablet (Entresto) 1 tab PO BID Check with primary doctor 08/06/22 [History Last Taken 08/06/22 10:00] tizanidine 4 mg tablet 4 mg PO QHS 08/06/22 [History Last Taken 08/05/22] carvedilol 25 mg tablet 25 mg PO BID Check with primary doctor #180 tabs 09/01/22 [Rx Last Taken Unknown] cephalexin 500 mg capsule 500 mg PO Q6 10 days #40 CAPSULES 09/02/22 [Rx Last Taken Unknown] glipizide 10 mg tablet, extended release 24 hr mg PO 09/02/22 [History Last Taken Unknown] Allergy/AdvReac Type Severity Reaction Status Date / Time amoxicillin trihydrate AdvReac Vomiting Verified 09/02/22 09:28 [From Augmentin] potassium clavulanate AdvReac Vomiting Verified 09/02/22 09:28 [From Augmentin] Family History Father Myocardial infarction Cancer prostate, leukemia Agent orange exposure Diabetes Sister Diabetes COPD (chronic obstructive pulmonary disease) Surgical History History of appendectomy History of back surgery History of cholecystectomy (1991) History of cholecystectomy History of coronary artery stent placement (05/19/21) History of hysterectomy History of laparoscopy History of left heart catheterization (09/14/21) History of tonsillectomy Status post insertion of nerve stimulator Social History household members: significant other Smoking Status: Former smoker how long ago did patient quit smokin alcohol intake: current alcohol intake frequency: holidays/special occasions only substance use type: does not use caffeine: Yes ROS ROS ED ROS Narrative Left arm redness and swelling. Review of Systems ROS Unobtainable: Denies due to encephalopathy Constitutional Constitutional ED: Denies chills or fever(s) Eyes Eyes: Denies blurry vision ENT ENT ED: Denies ear pain Cardiovascular Cardiovascular: Denies chest pain Respiratory/Chest Respiratory/Chest: Denies cough or dyspnea Gastrointestinal Gastrointestinal: Denies abdominal pain Genitourinary Genitourinary ED: Denies dysuria or hematuria Musculoskeletal Musculoskeletal: Denies back pain Integumentary Denies abscess Neurologic Neurologic: Denies headache(s) Psychiatric Psychiatric: Denies anxiety or depression Endocrine Endocrinology: Denies cold intolerance Hematologic/Lymphatic Hematologic/Lymphatic: Denies easy bleeding Allergic/Immunologic Allergic/Immunologic ED: Denies mouth swelling EXAM Physical Exam Narrative Exam Narrative: Well-appearing 51-year-old female. Vital signs are stable afebrile. H EENT exam unremarkable. Moist weeks membranes. Neck nontender. Lungs clear to auscultation bilaterally. Heart regular rate of about 75. No murmur. Chest wall nontender except recent pacemaker left upper chest. Well-healing incision. Minimal bruising. Abdomen soft nontender. Moving all 4 extremities. Left upper arm is red tender and swollen consistent with cellulitis primarily over the anterior bicep. There is no signs of septic joint. There is no axillary lymphadenopathy. She can do range of motion with her shoulder elbow and wrist. She has a normal radial pulse. 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 Neurologically she is awake and alert. Const Vital Signs: 09/02/22 09:26 Temperature 98.2 F Temperature Source Temporal Pulse Rate 74 Respiratory Rate 16 Blood Pressure 137/72 H Blood Pressure Mean 93 Pulse Ox 100 Positive well nourished, well developed and obese; Negative for cachectic, contractures or unkempt General Appearance ED: well developed and NAD; Negative for unkempt, cachectic, contractures, cyanotic or diaphoretic Nutritional Appearance: obese; Negative for cachectic HEENT Reports moist mucous membranes normocephalic and atraumatic; Negative for trauma or tenderness Eyes PERRL and EOMs intact bilaterally General Eye ED: Negative for other Neck full ROM and supple General: Negative for tenderness Lymph Lymphatic: Negative for other Chest Wall inspection of chest normal and palpation of chest normal Resp normal respiratory effort and clear to auscultation bilaterally Effort and Inspection: Negative for pain with movement Auscultation: Negative for rales, rhonchi or wheezes Cardio regular rate, regular rhythm, S1 normal heart sound, S2 normal heart sound and no murmurs Rate: Negative for bradycardia or tachycardic Rhythm: Negative for abnormal rhythm GI non-tender, non-distended and no masses Inspection: Negative for abdominal distention Auscultation: normoactive bowel sounds Palpation: soft; Negative for tender or guarding Back/Spine no CVA tenderness General Back: Negative for CVA tenderness Cervical Spine: Negative for cervical spine tenderness Thoracic Spine / Upper Back: Negative for thoracic spinal tenderness Lumbar Spine / Lower Back: Negative for lumbar spinal tenderness Extremity full ROM; Negative for normal to inspection Extremity Narrative: Left upper arm red, tender and swollen consistent with cellulitis. No axillary lymphadenopathy. 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 Normal radial pulse. Skin intact. General Extremety ED: Yes edema General Extremity: edema Neuro oriented x3, CN's II-XII intact bilaterally, moves all extremities, no focal motor deficits and no sensory deficits noted Sensorium / Orientation: alert, oriented to person, oriented to place and oriented to time; Negative for orientation impaired or lethargic Motor Exam: strength 5/5 throughout Psych mental status grossly normal Appearance: Negative for unkempt Attitude: No agitated Mood & Affect: Negative for depressed, anxious or tearful Skin General Skin Exam: Negative for petechiae Lesions: no lesions Rashes: No no rashes Trauma: Negative for no lacerations or abrasions, abrasion or laceration MDM MDM MDM Narrative Medical decision making narrative: 51-year-old female had a pacemaker placed about 2 weeks ago at [facility] and left chest. Now has developed swelling, redness and discomfort in her left arm which clinic I think is cellulitis. I will obtain an ultrasound to rule out DVT however she is on the blood thinner Eliquis. Patient is diabetic I am getting screening labs. She will be started on antibiotic Unasyn. Repeat exam patient is doing well at 11:25 AM. She denies discussed all of her test results. She does not look toxic. She does not have a fever. She has normal white count. Cellulitis under left upper arm does not look any worse and does not involve the wound site of the pacemaker. I think she can be treated at home with Keflex 4 times a day for 10 days. Follow-up with her primary care physician on Tuesday and notify [facility] about the cellulitis. She knows return if worse or develops a fever or is feeling worse. History & Record Review Discussion w/independent historian: Patient Lab Data Attestation: I reviewed the patient's lab results. Lab results narrative: CBC unremarkable. Normal white count. Normal H&H. Chemistries unremarkable. Ultrasound left upper extremity showed no DVT. Discharge Plan Triage Chief Complaint: Upper Extremity Injury ED Provider: Víctor Alvarez Dx/Rx/DC Orders Clinical Impression: Cellulitis of arm, left, History of diabetes mellitus, Chronic anticoagulation, History of pacemaker Instructions: ED Cellulitis Prescriptions: New cephalexin 500 mg capsule 500 mg PO Q6 10 Days Qty: 40 0RF No Action glipizide 10 mg tablet extended release 24hr 10 mg PO BID Label Comments: take 1 tablet by mouth twice a day insulin glargine [Lantus Solostar U-100 Insulin] 100 unit/mL (3 mL) insulin pen 10 unit subcut DAILY melatonin 10 mg tablet 10 mg PO HS PRN (Reason: Insomnia) hydroxyzine HCl 25 mg tablet 25 - 50 mg PO QHS PRN (Reason: anxiety) clopidogrel [Plavix] 75 mg tablet 75 mg PO DAILY Qty: 90 3RF (DME) FreeStyle Sanam 2 Sensor Kit See Rx Instructions .Route Qty: 2 5RF Rx Instructions: 1 sensor q 14 days (DME) FreeStyle Sanam 2 [place] Misc See Rx Instructions .Route Qty: 1 0RF Rx Instructions: As directed tizanidine 4 mg tablet 4 mg PO QHS Label Comments: take 1 tablet by mouth every evening diphenhydramine HCl 25 mg Tablet 25 mg PO Q4H PRN PRN (Reason: Allergy Symptoms) promethazine 25 mg tablet 25 mg PO TID PRN PRN (Reason: Nausea And Vomiting) Label Comments: take 1 tablet by mouth three times a day if needed for nausea and vomiting furosemide 40 mg tablet 40 mg PO DAILY atorvastatin 80 mg tablet 80 mg PO QHS hydrocodone-acetaminophen 5-325 mg tablet 1 tab PO DAILY isosorbide mononitrate 30 mg tablet extended release 24 hr 30 mg PO DAILY methimazole 10 mg tablet 10 mg PO DAILY insulin lispro [Humalog KwikPen Insulin] 100 unit/mL insulin pen 10 unit subcut TIDCM omeprazole magnesium [Prilosec OTC] 20 mg tablet,delayed release (DR/EC) 20 mg PO DAILY Movantik 25 mg tablet 25 mg PO QAM Rx Instructions: must be taken on empty stomach; no food 1 hr after or 2-3 hrs before dose Entresto 49-51 mg tablet 1 tab PO BID glipizide 10 mg tablet extended release 24hr PO Farxiga 10 mg tablet 10 mg PO DAILY Qty: 90 3RF Eliquis 5 mg tablet 5 mg PO BID Qty: 60 11RF (DME) pen needle, diabetic [BD Ultra-Fine [place] Pen Needle] 32 gauge x 5/32 needle See Rx Instructions .Route Qty: 100 5RF Rx Instructions: 4x/day carvedilol 25 mg tablet 25 mg PO BID Qty: 180 3RF Rx Instructions: must administer with a meal/food Primary Care Provider: Margo Tatum Referrals: Margo Tatum DO [Primary Care Provider] - 3-5 Days Activity Restrictions/Additional Instructions: Follow-up with your primary care doctor to ensure this is improving. Notify [place] of the infection. Your labs look good today. Your white count was normal. You do not have a blood clot in your left arm. Continue your current medications. The antibiotic Keflex 1 pill 4 times a day for the next 10 days. You are given a dose of IV antibiotics today. Try to get at least 2 dosages of Keflex in today. Return if the arm is looking a lot worse more red more swollen. You develop a fever or feeling worse. Otherwise outpatient follow-up. Disposition Disposition: Home, Self Care
[2022-09-02 10:55] LABS: Absolute Lymphocyte Count 1.57 X10^3/uL (0.83-4.51); Basophil# 0.04 X10^3/uL; Basophil% 0.7 % (0-1); Eosinophil# 0.11 X10^3/uL; Eosinophils% 1.8 % (0-5); Hematocrit 41.9 % (37-47); Hemoglobin 13.8 g/dL (12.0-15.0); Lymphocyte # 1.57 X10^3/ul (0.83-4.51); Lymphocyte % 25.7 % (19-41); Mean Corp Hgb Conc 32.9 g/dL (32-36); Mean Corpuscular Hgb 31.4 pg (27.0-32.0); Mean Corpuscular Volume 95.4 fL (81-99); Mean Platelet Vol. 9.7 fl (6.2-12.0); Monocyte# 0.34 X10^3/uL; Monocyte% 5.6 % (0-10); NRBC Flagged by Analyzer 0 % (0-5); Neutrophil # 4.04 X10^3/uL (2.7-7.7); Neutrophil % 65.9 % (47-70); Platelet Count 187 K/mm3 (150-450); RBC Distribution Width CV 13.2 % (11.6-14.6); RBC Distribution Width SD 46.3 fl (35.1-43.9); Red Blood Count 4.39 M/mm3 (4.2-5.4); White Blood Count 6.1 K/mm3 (4.4-11.0)
[2022-09-02 11:08] LABS: Anion Gap 9 (5-15); BUN 29 mg/dL (7-18); BUN/Creat Ratio 29.3 RATIO (10-20); Calcium,Total 9.6 mg/dL (8.5-10.1); Chloride 107 mmol/L (98-107); Creatinine, Serum 0.99 mg/dL (0.55-1.02); EST Glomerular Filtration Rate 62 mL/min (>60); Est Glom Filt Rate - Afr Amer 76 mL/min (>60); Glucose 225 mg/dL (74-106); Potassium 4.6 mmol/L (3.5-5.1); Sodium Level 138 mmol/L (136-145)
[2022-09-02 12:01] VITALS: BP 132/73; PULSE 79; RESP 16; O2SAT 97
== END 2022-09-02 12:06 | disposition home or self-care (01) ==
PROVIDERS: Emergency Provider Emergency Medicine; PCP Family Medicine; Visit Provider Emergency Medicine
DX: L03.114 Cellulitis of left upper limb (principal); J44.9 Chronic obstructive pulmonary disease, unspecified; I11.0 Hypertensive heart disease with heart failure; I50.22 Chronic systolic (congestive) heart failure; I48.0 Paroxysmal atrial fibrillation; E11.9 Type 2 diabetes mellitus without complications; Z79.4 Long term (current) use of insulin; I25.10 Atherosclerotic heart disease of native coronary artery without angina pectoris; I25.2 Old myocardial infarction; E78.5 Hyperlipidemia, unspecified; E66.9 Obesity, unspecified; Z68.38 Body mass index [BMI] 38.0-38.9, adult; Z95.0 Presence of cardiac pacemaker; Z95.5 Presence of coronary angioplasty implant and graft; Z79.01 Long term (current) use of anticoagulants; Z79.02 Long term (current) use of antithrombotics/antiplatelets; Z79.84 Long term (current) use of oral hypoglycemic drugs; Z79.899 Other long term (current) drug therapy; Z86.16 Personal history of COVID-19; Z87.891 Personal history of nicotine dependence
CPT/HCPCS: 80048; 85025; 93971; 99283; A4216; J0295

== ENCOUNTER 2022-09-06 04:41 | Emergency (ER) | payer OTHER, MEDICAID, MEDICARE, SELFPAY ==
[2022-02-26 14:11] VITALS: BMI 35.5
[2022-09-06 04:41] VITALS: BP 158/76; PULSE 79; RESP 18; TEMP 36.4; O2SAT 96; BMI 38.2
--- NOTE | 2022-09-06 05:56 | EDS_ITS ---
HPI History of Present Illness HPI Narrative: Left upper arm pain after having a pacemaker placed 3 weeks ago at [facility]. Chief Complaint: Upper Extremity Injury Occured/Mechanism Mechanism/Context: No injury and No blunt trauma Onset/Context/Timing Onset: Days Context: Gradual Onset Timing: Continuous Current Severity: Mild Maximum Severity: Mild Associated Symptoms Associated Symptoms: Negative for Parasthesia, Weakness or Loss of Funtion Narrative Narrative: 51-year-old female has a cardiac history and had pacemaker placed [facility] on August 18. Has been doing well she developed swelling in the left arm was seen here about 4 to 5 days ago at that time it was evaluated labs were unremarkable. Ultrasound showed no DVT possible superficial thrombophlebitis. Patient was treated as a possible early cellulitis. Was placed on Keflex. She returns with similar pain. No chest pain or shortness of breath. No fever. Redness is improved. Prior similar symptoms: Yes Recent Illness/Hospitalization: No PFSH PFSH Medical History Atherosclerotic heart disease of [place] coronary artery without angina pectoris Atrial fibrillation Benign hypertension Bilateral interstitial pneumonia Cardiomyopathy, ischemic Chest pain Chronic low back pain Chronic nausea Chronic pain COPD (chronic obstructive pulmonary disease) Coronary artery disease COVID-19 virus infection Diabetes Difficult intubation Former smoker HFrEF (heart failure with reduced ejection fraction) Hirsutism History of non-ST elevation myocardial infarction (NSTEMI) (09/08/21) Hyperglycemia due to type 2 diabetes mellitus Hyperlipidemia Hypertension Irregular heart beat Kidney stones Left bundle branch block (LBBB) Myocardial infarct Non-ischemic cardiomyopathy Non-ST elevation (NSTEMI) myocardial infarction Nonobstructive atherosclerosis of coronary artery Obesity Paroxysmal atrial fibrillation Presence of cardiac 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 therapy defibrillator ([employer]-D) Seizures Syncope Thyroid nodule Type 2 diabetes mellitus Vomiting Home Medications glipizide 10 mg tablet, extended release 24 hr 10 mg PO BID diabetes 07/11/20 [History Last Taken 08/06/22] dapagliflozin 10 mg tablet (Farxiga) 10 mg PO DAILY this is a dose increase #90 tabs 10/29/21 [Rx Last Taken 08/06/22 10:00] insulin glargine 100 unit/mL (3 mL) subcutaneous pen (Lantus Solostar U-100 Insulin) 10 unit subcut DAILY Check with primary doctor 06/06/22 [History Last Taken 08/06/22 10:00] apixaban 5 mg tablet (Eliquis) 5 mg PO BID #60 tabs 01/27/22 [Rx Last Taken 08/06/22 10:00] hydroxyzine HCl 25 mg tablet 25 - 50 mg PO QHS PRN anxiety 02/24/22 [History Last Taken Unknown] melatonin 10 mg tablet 10 mg PO HS PRN Insomnia 02/24/22 [History Last Taken Unknown] clopidogrel 75 mg tablet (Plavix) 75 mg PO DAILY #90 tabs 04/13/22 [Rx Last Taken 08/06/22] flash glucose scanning reader ([employer] Sanam 2 Wana) #1 ea 06/09/22 [Rx Last Taken Unknown] flash glucose sensor (FreeStyle Sanam 2 Sensor kit) #2 ea 06/09/22 [Rx Last Taken Unknown] BD Ultra-Fine [place] Pen Needle 32 gauge x 5/32 (pen needle, diabetic) #100 ea 07/29/22 [Rx Last Taken Unknown] atorvastatin 80 mg tablet 80 mg PO QHS Check with primary doctor 08/06/22 [History Last Taken 08/05/22] diphenhydramine HCl 25 mg tablet 25 mg PO Q4H PRN PRN Allergy Symptoms 08/06/22 [History Last Taken Unknown] furosemide 40 mg tablet 40 mg PO DAILY Check with primary doctor 08/06/22 [History Last Taken 08/06/22] hydrocodone-acetaminophen 5-325mg 5mg-325mg 1 tab PO DAILY Check with primary doctor 08/06/22 [History Last Taken 08/06/22 10:00] insulin lispro 100 unit/mL subcutaneous pen (Humalog KwikPen (U-100) Insulin) 10 unit subcut TIDCM Check with primary doctor 08/06/22 [History Last Taken 08/06/22 10:00] isosorbide mononitrate 30 mg tablet,extended release 24 hr 30 mg PO DAILY Check with primary doctor 08/06/22 [History Last Taken Unknown] methimazole 10 mg tablet 10 mg PO DAILY Check with primary doctor 08/06/22 [History Last Taken 08/06/22 10:00] naloxegol 25 mg tablet (Movantik) 25 mg PO QAM Check with primary doctor 08/06/22 [History Last Taken Unknown] omeprazole magnesium 20 mg tablet,delayed release (Prilosec OTC) 20 mg PO DAILY Check with primary doctor 08/06/22 [History Last Taken Unknown] promethazine 25 mg tablet 25 mg PO TID PRN PRN Nausea And Vomiting 08/06/22 [History Last Taken Unknown] sacubitril 49 mg-valsartan 51 mg tablet (Entresto) 1 tab PO BID Check with primary doctor 08/06/22 [History Last Taken 08/06/22 10:00] tizanidine 4 mg tablet 4 mg PO QHS 08/06/22 [History Last Taken 08/05/22] carvedilol 25 mg tablet 25 mg PO BID Check with primary doctor #180 tabs 09/01/22 [Rx Last Taken Unknown] cephalexin 500 mg capsule 500 mg PO Q6 10 days #40 CAPSULES 09/02/22 [Rx Last Taken Unknown] glipizide 10 mg tablet, extended release 24 hr mg PO 09/02/22 [History Last Taken Unknown] Allergy/AdvReac Type Severity Reaction Status Date / Time amoxicillin trihydrate AdvReac Vomiting Verified 09/06/22 04:46 [From Augmentin] potassium clavulanate AdvReac Vomiting Verified 09/06/22 04:46 [From Augmentin] Family History Father Myocardial infarction Cancer prostate, leukemia Agent orange exposure Diabetes Sister Diabetes COPD (chronic obstructive pulmonary disease) Surgical History History of appendectomy History of back surgery History of cholecystectomy (1991) History of cholecystectomy History of coronary artery stent placement (05/19/21) History of hysterectomy History of laparoscopy History of left heart catheterization (09/14/21) History of tonsillectomy Status post insertion of nerve stimulator Social History household members: significant other Smoking Status: Former smoker how long ago did patient quit smokin alcohol intake: current alcohol intake frequency: holidays/special occasions only substance use type: does not use caffeine: Yes ROS ROS ED ROS Narrative Left arm pain otherwise not ill recently. No fever or chills. Review of Systems ROS Unobtainable: Denies due to encephalopathy Constitutional Constitutional ED: Denies chills or fever(s) Eyes Eyes: Denies blurry vision ENT ENT ED: Denies ear pain Cardiovascular Cardiovascular: Denies chest pain Respiratory/Chest Respiratory/Chest: Denies cough or dyspnea Gastrointestinal Gastrointestinal: Denies abdominal pain Genitourinary Genitourinary ED: Denies dysuria or hematuria Musculoskeletal Musculoskeletal: Denies back pain Integumentary Denies abscess Neurologic Neurologic: Denies headache(s) Psychiatric Psychiatric: Denies anxiety Endocrine Endocrinology: Denies cold intolerance Hematologic/Lymphatic Hematologic/Lymphatic: Denies easy bleeding or easy bruising Allergic/Immunologic Allergic/Immunologic ED: Denies mouth swelling or tongue swelling EXAM Physical Exam Narrative Exam Narrative: Well-appearing 51-year-old female. Vital signs stable afebrile. Pulse ox 96% on room air no signs of hypoxia. Temperature 97.6. HEENT exam unremarkable. Neck nontender no JVD. No lymphadenopathy. Lungs clear to auscultation bilaterally. Heart regular rate and rhythm no murmur rate about 80. Left chest wall she has a pacemaker placed. The incision is dry and clean and healing nicely. Minimal bruising. Minimal tenderness. Abdomen soft nontender normal bowel sounds no peritoneal signs. Moving all 4 extremities. The left bicep area is tender and full consistent with inflammation either from edema or superficial thrombophlebitis. Forearm is nontender. 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 No signs of compartment. No axillary lymphadenopathy. The other day this is slightly red the upper arm and that is resolved. It looks as good or better than it did the other day. Const Vital Signs: 09/06/22 04:41 Temperature 97.6 F L Temperature Source Temporal Pulse Rate 79 Respiratory Rate 18 Blood Pressure 158/76 H Blood Pressure Mean 103 Pulse Ox 96 Oxygen Delivery Method Room Air Positive well nourished, well developed and obese; Negative for cachectic, contractures or unkempt General Appearance ED: well developed and NAD; Negative for unkempt, cachectic, contractures, cyanotic or diaphoretic Nutritional Appearance: obese; Negative for cachectic HEENT Reports moist mucous membranes normocephalic and atraumatic; Negative for trauma or tenderness Eyes PERRL and EOMs intact bilaterally General Eye ED: Negative for other Neck full ROM and supple General: Negative for tenderness Lymph Lymphatic: Negative for other Chest Wall inspection of chest normal and palpation of chest normal Chest: Negative for other Resp normal respiratory effort and clear to auscultation bilaterally Effort and Inspection: Negative for pain with movement Auscultation: Negative for rales, rhonchi or wheezes Cardio regular rate, regular rhythm, S1 normal heart sound, S2 normal heart sound and no murmurs Rate: Negative for bradycardia or tachycardic Rhythm: Negative for abnormal rhythm GI non-tender, non-distended and no masses Inspection: Negative for abdominal distention Auscultation: normoactive bowel sounds Palpation: soft; Negative for tender or guarding Back/Spine no CVA tenderness General Back: Negative for CVA tenderness Cervical Spine: Negative for cervical spine tenderness Thoracic Spine / Upper Back: Negative for thoracic spinal tenderness Lumbar Spine / Lower Back: Negative for lumbar spinal tenderness Extremity full ROM; Negative for normal to inspection Extremity Narrative: Tenderness of the left bicep. Mild swelling. No redness or warmth. Normal radial pulse. Normal forearm. 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 No axillary lymphadenopathy. General Extremety ED: Yes edema General Extremity: edema Neuro oriented x3, CN's II-XII intact bilaterally, moves all extremities, no focal motor deficits and no sensory deficits noted Sensorium / Orientation: alert, oriented to person, oriented to place and oriented to time; Negative for orientation impaired, lethargic, stuporous or other Motor Exam: strength 5/5 throughout Psych mental status grossly normal Appearance: Negative for unkempt Mood & Affect: Negative for depressed, anxious or tearful Skin General Skin Exam: Negative for petechiae Lesions: no lesions Rashes: no rashes Trauma: no lacerations or abrasions; Negative for abrasion or laceration MDM MDM MDM Narrative Medical decision making narrative: Left arm pain and swelling after recent left-sided chest wall pacemaker placement. Clinically this does not look infected. We did an ultrasound on the other day there is no DVT but there may have been superficial thrombophlebitis. Versus just edema. This will be treated with warm compresses. Elevation. Motrin for pain and inflammation. She was instructed to follow-up with her pacemaker physicians for further evaluation. Finish the Keflex that she was written for the other day for possible cellulitis. She does not need further labs or ultrasound today. History & Record Review Discussion w/independent historian: Patient Additional record(s) reviewed:: Prior inpatient record, Prior outpatient record, Prior ED visit and Prior labs Discharge Plan Triage Chief Complaint: Upper Extremity Injury ED Provider: Víctor Alvarez Dx/Rx/DC Orders Clinical Impression: Left arm swelling, History of pacemaker, Superficial thrombophlebitis, History of diabetes mellitus Instructions: ED Lymphedema, ED Thrombophlebitis, Superficial Prescriptions: No Action glipizide 10 mg tablet extended release 24hr 10 mg PO BID Label Comments: take 1 tablet by mouth twice a day insulin glargine [Lantus Solostar U-100 Insulin] 100 unit/mL (3 mL) insulin pen 10 unit subcut DAILY melatonin 10 mg tablet 10 mg PO HS PRN (Reason: Insomnia) hydroxyzine HCl 25 mg tablet 25 - 50 mg PO QHS PRN (Reason: anxiety) clopidogrel [Plavix] 75 mg tablet 75 mg PO DAILY Qty: 90 3RF (DME) FreeStyle Sanam 2 Sensor Kit See Rx Instructions .Route Qty: 2 5RF Rx Instructions: 1 sensor q 14 days (DME) FreeStyle Sanam 2 Wana Misc See Rx Instructions .Route Qty: 1 0RF Rx Instructions: As directed tizanidine 4 mg tablet 4 mg PO QHS Label Comments: take 1 tablet by mouth every evening diphenhydramine HCl 25 mg Tablet 25 mg PO Q4H PRN PRN (Reason: Allergy Symptoms) promethazine 25 mg tablet 25 mg PO TID PRN PRN (Reason: Nausea And Vomiting) Label Comments: take 1 tablet by mouth three times a day if needed for nausea and vomiting furosemide 40 mg tablet 40 mg PO DAILY atorvastatin 80 mg tablet 80 mg PO QHS hydrocodone-acetaminophen 5-325 mg tablet 1 tab PO DAILY isosorbide mononitrate 30 mg tablet extended release 24 hr 30 mg PO DAILY methimazole 10 mg tablet 10 mg PO DAILY insulin lispro [Humalog KwikPen Insulin] 100 unit/mL insulin pen 10 unit subcut TIDCM omeprazole magnesium [Prilosec OTC] 20 mg tablet,delayed release (DR/EC) 20 mg PO DAILY Movantik 25 mg tablet 25 mg PO QAM Rx Instructions: must be taken on empty stomach; no food 1 hr after or 2-3 hrs before dose Entresto 49-51 mg tablet 1 tab PO BID glipizide 10 mg tablet extended release 24hr PO cephalexin 500 mg capsule 500 mg PO Q6 10 Days Qty: 40 0RF Farxiga 10 mg tablet 10 mg PO DAILY Qty: 90 3RF Eliquis 5 mg tablet 5 mg PO BID Qty: 60 11RF (DME) pen needle, diabetic [BD Ultra-Fine [place] Pen Needle] 32 gauge x 5/32 needle See Rx Instructions .Route Qty: 100 5RF Rx Instructions: 4x/day carvedilol 25 mg tablet 25 mg PO BID Qty: 180 3RF Rx Instructions: must administer with a meal/food Primary Care Provider: Margo Tatum Referrals: Margo Tatum DO [Primary Care Provider] - As Needed Activity Restrictions/Additional Instructions: Elevate your left arm to decrease pain and swelling. In case this is a superficial thrombophlebitis which is inflammation of your veins Motrin for pain. Warm compresses. As the swelling goes down this should significantly improved. Call and follow-up with your pacemaker doctor that placed it. Finish your current antibiotic but clinically I do not think this is infected now. Disposition Disposition: Home, Self Care
== END 2022-09-06 06:08 | disposition home or self-care (01) ==
PROVIDERS: Emergency Provider Emergency Medicine; PCP Family Medicine; Visit Provider Emergency Medicine
DX: I80.8 Phlebitis and thrombophlebitis of other sites (principal); J44.9 Chronic obstructive pulmonary disease, unspecified; I11.0 Hypertensive heart disease with heart failure; I50.22 Chronic systolic (congestive) heart failure; I48.0 Paroxysmal atrial fibrillation; E11.9 Type 2 diabetes mellitus without complications; Z79.4 Long term (current) use of insulin; E78.5 Hyperlipidemia, unspecified; I25.10 Atherosclerotic heart disease of native coronary artery without angina pectoris; I25.2 Old myocardial infarction; E66.9 Obesity, unspecified; Z68.38 Body mass index [BMI] 38.0-38.9, adult; Z95.0 Presence of cardiac pacemaker; Z79.02 Long term (current) use of antithrombotics/antiplatelets; Z79.84 Long term (current) use of oral hypoglycemic drugs; Z79.899 Other long term (current) drug therapy; Z86.16 Personal history of COVID-19; Z87.891 Personal history of nicotine dependence
CPT/HCPCS: 99282

== ENCOUNTER → 2022-10-01 | Outpatient (CLI) | payer OTHER, MEDICARE, MEDICAID, SELFPAY ==
[2022-02-26 14:11] VITALS: BMI 35.5
[2022-10-01 16:54] LABS: Anion Gap 1 (5-15); BUN 18 mg/dL (7-18); BUN/Creat Ratio 22.4 RATIO (10-20); Calcium,Total 8.8 mg/dL (8.5-10.1); Chloride 111 mmol/L (98-107); EST Glomerular Filtration Rate 79 mL/min (>60); Est Glom Filt Rate - Afr Amer 96 mL/min (>60); Glucose 187 mg/dL (74-106); Potassium 3.5 mmol/L (3.5-5.1); Sodium Level 137 mmol/L (136-145)
== END | disposition home or self-care (01) ==
LOC: LAB 15:26
PROVIDERS: PCP Family Medicine; Referring Provider Nurse Practitioner Family; Visit Provider Nurse Practitioner Family
DX: R06.09 Other forms of dyspnea (principal); I10 Essential (primary) hypertension; I44.7 Left bundle-branch block, unspecified; I25.5 Ischemic cardiomyopathy; E78.5 Hyperlipidemia, unspecified
CPT/HCPCS: 36415; 80048

== ENCOUNTER 2022-10-07 15:18 | Emergency (ER) | payer OTHER, MEDICARE, MEDICAID, SELFPAY ==
[2022-02-26 14:11] VITALS: BMI 35.5
[2022-10-07 15:20] VITALS: BP 155/72; PULSE 80; RESP 22; TEMP 36.9; O2SAT 96; BMI 39.5
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
[2022-10-07] MEDS: Morphine 4 MG/ML Syringe IV (15:45)
[2022-10-07] MEDS: 0.9% Normal Saline 1,000 ML 150 ML IV (15:45)
[2022-10-07] MEDS: Ondansetron 4 MG/2 ML Vial IV (15:45)
[2022-10-07 15:53] LABS: Absolute Lymphocyte Count 2.01 X10^3/uL (0.83-4.51); Absolute Neutrophil Count 3.3 X10^3/uL (2.0-7.7); Basophil# 0.02 X10^3/uL; Basophil% 0.3 % (0-1); Eosinophils% 1.7 % (0-5); Hematocrit 38.8 % (37-47); Hemoglobin 12.6 g/dL (12.0-15.0); Lymphocyte # 2.01 X10^3/ul (0.83-4.51); Lymphocyte % 34.7 % (19-41); Mean Corp Hgb Conc 32.5 g/dL (32-36); Mean Corpuscular Hgb 30.8 pg (27.0-32.0); Mean Corpuscular Volume 94.9 fL (81-99); Mean Platelet Vol. 9.8 fl (6.2-12.0); Monocyte# 0.38 X10^3/uL; Monocyte% 6.6 % (0-10); NRBC Flagged by Analyzer 0 % (0-5); Neutrophil # 3.26 X10^3/uL (2.7-7.7); Neutrophil % 56.2 % (47-70); Platelet Count 166 K/mm3 (150-450); RBC Distribution Width CV 13.3 % (11.6-14.6); RBC Distribution Width SD 45.7 fl (35.1-43.9); Red Blood Count 4.09 M/mm3 (4.2-5.4); White Blood Count 5.8 K/mm3 (4.4-11.0)
[2022-10-07 16:11] LABS: AST(SGOT) 15 U/L (15-37); Alanine Aminotransfer ALT/SGPT 19 U/L (13-56); Albumin, Serum 3.2 g/dL (3.2-5.0); Alkaline Phosphatase 92 U/L (45-117); Anion Gap 8 (5-15); BUN 17 mg/dL (7-18); Calcium,Total 8.7 mg/dL (8.5-10.1); Chloride 112 mmol/L (98-107); Creatinine, Serum 0.89 mg/dL (0.55-1.02); EST Glomerular Filtration Rate 70 mL/min (>60); Est Glom Filt Rate - Afr Amer 85 mL/min (>60); Estimated Creatinine Clearance 63.85 ml/min; Globulin 3.3 g/dL (2.2-4.2); Glucose 216 mg/dL (74-106); Lipase 34 U/L (13-75); Potassium 3.9 mmol/L (3.5-5.1); Protein, Total 6.5 g/dL (6.4-8.2); Sodium Level 143 mmol/L (136-145); Troponin-I HS 8 pg/mL (3.0-54.0)
[2022-10-07 17:19] VITALS: BP 174/78; PULSE 74; RESP 18; O2SAT 99
== END 2022-10-07 17:20 | disposition home or self-care (01) ==
PROVIDERS: Emergency Provider Emergency Medicine; PCP Family Medicine; Visit Provider Emergency Medicine
DX: S09.90XA Unspecified injury of head, initial encounter (principal); J44.9 Chronic obstructive pulmonary disease, unspecified; I11.0 Hypertensive heart disease with heart failure; I50.22 Chronic systolic (congestive) heart failure; I48.0 Paroxysmal atrial fibrillation; E11.9 Type 2 diabetes mellitus without complications; Z79.4 Long term (current) use of insulin; S16.1XXA Strain of muscle, fascia and tendon at neck level, initial encounter; E78.5 Hyperlipidemia, unspecified; S20.214A Contusion of middle front wall of thorax, initial encounter; S39.91XA Unspecified injury of abdomen, initial encounter; V43.52XA Car driver injured in collision with other type car in traffic accident, initial encounter; Y93.89 Activity, other specified; Z95.0 Presence of cardiac pacemaker; I25.10 Atherosclerotic heart disease of native coronary artery without angina pectoris; I25.2 Old myocardial infarction; Z95.5 Presence of coronary angioplasty implant and graft; Z79.01 Long term (current) use of anticoagulants; Z79.84 Long term (current) use of oral hypoglycemic drugs; Z79.899 Other long term (current) drug therapy; Z86.16 Personal history of COVID-19; Z87.891 Personal history of nicotine dependence
CPT/HCPCS: 70450; 71260; 72125; 74177; 80053; 82077; 83690; 84484; 85025; 93005; 96361; 96374; 96375; 99285; J7030; Q9967; A4216; J2405

== ENCOUNTER → 2022-10-07 | Outpatient (CLI) | payer OTHER, MEDICARE, MEDICAID, SELFPAY ==
[2022-02-26 14:11] VITALS: BMI 35.5
--- NOTE | 2022-10-07 09:40 | BD_ITS ---
STUDY: DUAL ENERGY X-RAY ABSORPTIOMETRY / DXA REASON FOR EXAM: Female, 51 years old. Hx of uncontrolled hyperthyroidism TECHNIQUE: Bone Mineral Density (BMD) measurements of lumbar spine and right hip were obtained. COMPARISON: None. FINDINGS: Lumbar Spine (L1-L4): g/cm2 (0.929) / T-score (-1.6) / Z-score (-0.6) Findings are suggestive of osteopenia with a moderate fracture risk. Right Femur Total: g/cm2 (0.933) / T-score (-0.1) / Z-score (0.5) Right Femoral Neck: g/cm2 (0.802) / T-score (-0.4) / Z-score (0.5) BD/Dexa Bone Density Study IMPRESSION: The patient is considered osteopenic as outlined below according to World [place] Organization (WHO) criteria with a moderate fracture risk. Reference Information: The T-score is the number of standard deviations above or below the standard which is normal for young adults at their peak bone mineral density. The World Health Organization (WHO) interprets the T-scores as follows: Above -1 Normal bone density Between -1 and -2.5 Osteopenia Equal to / or below -2.5 Osteoporosis As a practical clinical guideline, osteopenia may be graded as follows: Mild -1 through -1.5 Moderate -1.6 through -2.0 Severe -2.1 through -2.4 The Z-score is the number of standard deviations above or below age-matched controls. A Z-score of less than -1.5 would be considered abnormal. References: 1. NIH Osteoporosis and Related Bone Diseases www osteo.org 2. International Society for Clinical Densitometry www iscd.org 3. National Osteoporosis Foundation www nof.org Electronically Signed: Mario Alberto Joy MD at 8:52 EDT ,
== END | disposition home or self-care (01) ==
PROVIDERS: PCP Family Medicine; Referring Provider Nurse Practitioner Family; Visit Provider Nurse Practitioner Family
DX: E05.90 Thyrotoxicosis, unspecified without thyrotoxic crisis or storm (principal)
CPT/HCPCS: 77080

== ENCOUNTER 2022-10-18 12:17 | Emergency (ER) | payer OTHER, MEDICARE, MEDICAID, SELFPAY ==
[2022-02-26 14:11] VITALS: BMI 35.5
[2022-10-18 12:18] VITALS: BP 151/48; PULSE 85; RESP 16; TEMP 36.7; O2SAT 97
--- NOTE | 2022-10-18 12:37 | CT_ITS ---
STUDY: CT ABDOMEN AND PELVIS WITH CONTRAST REASON FOR EXAM: Female, 51 years old. Worsening right upper quadrant pain. RADIATION DOSAGE (If Supplied By Facility): CTDIvol = ( 16.91 ) mGy, DLP = ( 1017.26 ) mGycm TECHNIQUE: Transaxial images were obtained from the dome of the diaphragm to the symphysis pubis without oral contrast. IV 100mL Isovue-300 was administered. Sagittal and coronal images were reconstructed. Individualized dose optimization techniques were used for this CT. COMPARISON: Comparison is made with prior study of July 24, 2018. FINDINGS: The visualized lung bases are unremarkable. A dual-chamber pacemaker is seen. Normal liver. There are surgical clips in the gallbladder fossa consistent with a prior cholecystectomy. Normal spleen. Normal pancreas. Normal bilateral adrenal glands. 1 cm cyst in the posterior midportion of the right kidney. 8.4 mm nonobstructive calculus in the lower pole calyx of the right kidney. Normal left kidney. There is a small hiatal hernia. Normal small intestine. There are multiple colonic diverticula consistent with diverticulosis. The appendix is visualized and appears normal. There is scattered atherosclerotic calcification of the abdominal aorta, without a demonstrated aneurysm. Normal inferior vena cava. Normal retroperitoneum. Normal urinary bladder. There is absence of the uterus consistent with a prior hysterectomy. Normal abdominal wall. There are degenerative changes of the visualized lumbar spine. Prior laminectomy at the L5 level. A spinal cord stimulator device is seen. CT/Abdomen/Pelvis W IV Cont ONLY IMPRESSION: Status post cholecystectomy and appendectomy. Status post hysterectomy. 8.4 mm nonobstructive coccus in the lower pole calyx of the right kidney. Small hiatal hernia. Electronically Signed: Mario Alberto Joy MD at 14:13 EDT ,
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
[2022-10-18] MEDS: morphine 8 MG/ML Syringe 6 MG IV (12:46)
[2022-10-18] MEDS: Ondansetron 4 MG/2 ML Vial IV (12:46)
[2022-10-18 13:08] VITALS: BMI 38.5
[2022-10-18 13:13] LABS: Absolute Lymphocyte Count 1.71 X10^3/uL (0.83-4.51); Absolute Neutrophil Count 5.1 X10^3/uL (2.0-7.7); Basophil# 0.03 X10^3/uL; Basophil% 0.4 % (0-1); Eosinophil# 0.04 X10^3/uL; Eosinophils% 0.5 % (0-5); Hematocrit 41.2 % (37-47); Hemoglobin 13.2 g/dL (12.0-15.0); Lymphocyte # 1.71 X10^3/ul (0.83-4.51); Lymphocyte % 23.1 % (19-41); Mean Corpuscular Hgb 31.4 pg (27.0-32.0); Mean Corpuscular Volume 97.9 fL (81-99); Mean Platelet Vol. 9.5 fl (6.2-12.0); Monocyte# 0.55 X10^3/uL; Monocyte% 7.4 % (0-10); NRBC Flagged by Analyzer 0 % (0-5); Neutrophil # 5.07 X10^3/uL (2.7-7.7); Neutrophil % 68.5 % (47-70); Platelet Count 231 K/mm3 (150-450); RBC Distribution Width CV 14.6 % (11.6-14.6); RBC Distribution Width SD 51.3 fl (35.1-43.9); Red Blood Count 4.21 M/mm3 (4.2-5.4); White Blood Count 7.4 K/mm3 (4.4-11.0)
[2022-10-18 13:37] LABS: AST(SGOT) 14 U/L (15-37); Alanine Aminotransfer ALT/SGPT 19 U/L (13-56); Alkaline Phosphatase 107 U/L (45-117); Anion Gap 7 (5-15); BUN 35 mg/dL (7-18); BUN/Creat Ratio 43.4 RATIO (10-20); Calcium,Total 9.1 mg/dL (8.5-10.1); Chloride 113 mmol/L (98-107); Creatinine, Serum 0.81 mg/dL (0.55-1.02); EST Glomerular Filtration Rate 79 mL/min (>60); Est Glom Filt Rate - Afr Amer 96 mL/min (>60); Estimated Creatinine Clearance 70.16 ml/min; Glucose 127 mg/dL (74-106); Lipase 49 U/L (13-75); Potassium 3.7 mmol/L (3.5-5.1); Sodium Level 142 mmol/L (136-145)
== END 2022-10-18 14:38 | disposition home or self-care (01) ==
PROVIDERS: Emergency Provider Emergency Medicine; PCP Family Medicine; Visit Provider Emergency Medicine
DX: S30.1XXA Contusion of abdominal wall, initial encounter (principal); J44.9 Chronic obstructive pulmonary disease, unspecified; I11.0 Hypertensive heart disease with heart failure; I50.22 Chronic systolic (congestive) heart failure; I48.0 Paroxysmal atrial fibrillation; E11.9 Type 2 diabetes mellitus without complications; Z79.4 Long term (current) use of insulin; V43.52XA Car driver injured in collision with other type car in traffic accident, initial encounter; E78.5 Hyperlipidemia, unspecified; I25.10 Atherosclerotic heart disease of native coronary artery without angina pectoris; I25.2 Old myocardial infarction; F17.210 Nicotine dependence, cigarettes, uncomplicated; E66.9 Obesity, unspecified; Z68.38 Body mass index [BMI] 38.0-38.9, adult; Z90.49 Acquired absence of other specified parts of digestive tract; Z90.710 Acquired absence of both cervix and uterus; Z95.5 Presence of coronary angioplasty implant and graft; Z95.810 Presence of automatic (implantable) cardiac defibrillator; Z79.01 Long term (current) use of anticoagulants; Z79.02 Long term (current) use of antithrombotics/antiplatelets; Z79.84 Long term (current) use of oral hypoglycemic drugs; Z79.899 Other long term (current) drug therapy; Z86.16 Personal history of COVID-19
CPT/HCPCS: 74177; 80053; 83690; 85025; 96374; 96375; 99282; J7030; Q9967; A4216; J2405

== ENCOUNTER → 2022-12-16 | Outpatient (CLI) | payer OTHER, MEDICARE, MEDICAID, SELFPAY ==
[2022-02-26 14:11] VITALS: BMI 35.5
--- NOTE | 2022-12-16 09:30 | ECHOCS_ITS ---
Reason For Study: CHF, Dyspnea Procedure This was a 2D Doppler, Color Flow transthoracic echocardiogram. The study was technically difficult. Contrast injection was performed. Exam performed in department. Left Ventricle Normal LV size. The left ventricular ejection fraction is 45 %. Stage 1 diastolic dysfunction. Infero-Basal: Severely Hypokinetic. Basal inferoseptal: Severely Hypokinetic. Mid-Inferior: Mildly hypokinetic. Right Ventricle Normal RV size. ICD or pacer leads identified within the right ventricle. The right ventricle is normal in size, function, and thickness. Atria Normal left atrium. Normal right atrium. Mitral Valve Normal mitral valve. Tricuspid Valve Normal tricuspid valve. Aortic Valve Trisinus/trileaflet aortic valve. Pulmonic Valve The pulmonic valve is not well visualized. Great Vessels Normal aortic root. The pulmonary artery is normal size. Inferior vena cava collapse with respiration. Pericardium/Pleural No pericardial effusion. Medication 22 gauge I.V. with prn adaptor inserted into right arm. Diluted definity 2.5ml given slow IV push to enhance endocardial definition. MMode/2D Measurements & Calculations LVIDd: 5.1 cm IVSd: 0.79 cm Ao root diam: 3.1 cm LVIDs: 4.3 cm LVPWd: 0.91 cm LA dimension: 4.3 cm FS: 16.2 % LAV(MOD-bp): 47.9 ml LVAd ap4: 40.1 cm2 SV(MOD-sp4): 49.8 ml LAV(MOD-bp) Indexed: 23.4 ml/m2 LVLd ap4: 8.2 cm LAV(MOD-sp2): 45.5 ml EDV(MOD-sp4): 159.1 ml LAV(MOD-sp4): 47.1 ml EDV(sp4-el): 166.5 ml LVAs ap4: 31.2 cm2 LVLs ap4: 7.6 cm ESV(MOD-sp4): 109.3 ml ESV(sp4-el): 109.3 ml EF(MOD-sp4): 31.3 % EF(sp4-el): 34.3 % SV(sp4-el): 57.2 ml LA A4 area: 17.6 cm2 RA A4 area: 12.9 cm2 Time Measurements MV dec time: 0.21 sec Doppler Measurements & Calculations MV E max toño: 66.9 cm/sec Lat Peak E' Toño: 5.5 cm/sec Med Peak E' Toño: 6.6 cm/sec MV A max toño: 82.9 cm/sec E/E' lat: 12.2 E/E' med: 10.1 MV E/A: 0.81 MV V2 max: 102.5 cm/sec MV P1/2t max toño: 83.4 cm/sec Ao V2 max: 136.3 cm/sec MV max P.2 mmHg MV P1/2t: 75.4 msec Ao max P.4 mmHg MV V2 mean: 57.1 cm/sec Ao V2 mean: 85.4 cm/sec MV mean P.5 mmHg MV dec slope: 323.8 cm/sec2 Ao mean P.5 mmHg MV V2 VTI: 24.6 cm MVA(P1/2t): 2.9 cm2 Ao V2 VTI: 29.2 cm AV (velocity ratio): 0.74 LV V1 max: 94.2 cm/sec PA V2 max: 113.4 cm/sec LV V1 max P.5 mmHg PA V2 mean: 70.2 cm/sec LV V1 mean P.1 mmHg LV V1 mean: 67.2 cm/sec LV V1 VTI: 21.7 cm ECHO/Echo Complete W/ Contrast Interpretation Summary Normal LV size. The left ventricular ejection fraction is 45 %. Stage 1 diastolic dysfunction. Contrast injection was performed. Compared to previous study, the left ventricu lar systolic function has improved.. Ordering Physician: Kirk Mitchell Referring Physician: Margo Tatum Performed By: Tam Jimenez RCS
== END | disposition home or self-care (01) ==
PROVIDERS: PCP Family Medicine; Referring Provider Nurse Practitioner Family; Visit Provider Nurse Practitioner Family
DX: R06.09 Other forms of dyspnea (principal); I50.9 Heart failure, unspecified
CPT/HCPCS: 93306; Q9957; A4216; C8929

== ENCOUNTER → 2022-12-20 | Outpatient (CLI) | payer OTHER, MEDICARE, MEDICAID, SELFPAY ==
[2022-02-26 14:11] VITALS: BMI 35.5
[2022-12-20 13:10] LABS: Amphetamine Urine VISTA NEGATIVE (<1000 ng/mL); Barbiturate Urine VISTA NEGATIVE (< 200 ng/mL); Benzodiazepine Urine VISTA NEGATIVE (< 200 ng/mL); Cocaine Urine VISTA NEGATIVE (< 300 ng/mL); Ecstacy Urine VISTA NEGATIVE (< 500 ng/mL); Methadone Urine VISTA NEGATIVE (< 300 ng/mL); PCP Urine VISTA NEGATIVE (< 25 ng/mL); THC Urine VISTA NEGATIVE (< 50 ng/mL); Vista UDS pH Range 5
== END | disposition home or self-care (01) ==
PROVIDERS: PCP Family Medicine; Referring Provider Anesthesiology Pain Medicine; Visit Provider Anesthesiology Pain Medicine
DX: F11.20 Opioid dependence, uncomplicated (principal)
CPT/HCPCS: 80307

== ENCOUNTER → 2023-03-08 | Outpatient (CLI) | payer OTHER, MEDICARE, MEDICAID, SELFPAY ==
[2022-02-26 14:11] VITALS: BMI 35.5
[2023-03-08 11:56] LABS: BNP,B-Type NATRIURETIC PEPTIDE 30.3 pg/mL (0-100)
[2023-03-08 12:12] LABS: Free T3 2.8 pg/mL (2.18-3.98); Thyroid Stim Hormone (TSH) 1.67 uIU/mL (0.358-3.74)
== END | disposition home or self-care (01) ==
LOC: LAB 10:34
PROVIDERS: Nurse Practitioner Family; PCP Family Medicine; Referring Provider Internal Medicine Cardiovascular Disease; Visit Provider Internal Medicine Cardiovascular Disease
DX: R06.09 Other forms of dyspnea (principal); E05.90 Thyrotoxicosis, unspecified without thyrotoxic crisis or storm
CPT/HCPCS: 36415; 83880; 84439; 84443; 84481

== ENCOUNTER 2023-05-18 09:39 | Emergency (ER) | payer OTHER, MEDICARE, MEDICAID, SELFPAY ==
[2022-02-26 14:11] VITALS: BMI 35.5
[2023-05-18 09:40] VITALS: BP 151/88; PULSE 66; RESP 18; TEMP 36.4; O2SAT 98; BMI 36.2
--- NOTE | 2023-05-18 09:49 | EDS_ITS ---
HPI History of Present Illness Chief Complaint: Syncope [facility] Medical History Atherosclerotic heart disease of [place] coronary artery without angina pectoris Atrial fibrillation Benign hypertension Bilateral interstitial pneumonia Cardiomyopathy, ischemic Chest pain Chronic low back pain Chronic nausea Chronic pain COPD (chronic obstructive pulmonary disease) Coronary artery disease COVID-19 virus infection Diabetes Difficult intubation Former smoker HFrEF (heart failure with reduced ejection fraction) Hirsutism History of non-ST elevation myocardial infarction (NSTEMI) (09/08/21) Hyperglycemia due to type 2 diabetes mellitus Hyperlipidemia Hypertension Irregular heart beat Kidney stones Left bundle branch block (LBBB) Myocardial infarct Non-ischemic cardiomyopathy Non-ST elevation (NSTEMI) myocardial infarction Nonobstructive atherosclerosis of coronary artery Obesity Paroxysmal atrial fibrillation Presence of cardiac 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 therapy defibrillator (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) Seizures Syncope Thyroid nodule Type 2 diabetes mellitus Vomiting Home Medications apixaban 5 mg tablet (Eliquis) 5 mg PO BID #60 tabs 01/27/22 [Rx Last Taken 08/06/22 10:00] hydroxyzine HCl 25 mg tablet 25 - 50 mg PO QHS PRN anxiety 02/24/22 [History Last Taken Unknown] melatonin 10 mg tablet 10 mg PO HS PRN Insomnia 02/24/22 [History Last Taken Unknown] flash glucose scanning reader ([employer] Sanam 2 [place]) #1 ea 06/09/22 [Rx Last Taken Unknown] BD Ultra-Fine [place] Pen Needle 32 gauge x 5/32 (pen needle, diabetic) #100 ea 07/29/22 [Rx Last Taken Unknown] atorvastatin 80 mg tablet 80 mg PO QHS Check with primary doctor 08/06/22 [History Last Taken 08/05/22] diphenhydramine HCl 25 mg tablet 25 mg PO Q4H PRN PRN Allergy Symptoms 08/06/22 [History Last Taken Unknown] furosemide 40 mg tablet 40 mg PO DAILY Check with primary doctor 08/06/22 [History Last Taken 08/06/22] hydrocodone-acetaminophen 5-325mg 5mg-325mg 1 tab PO DAILY Check with primary doctor 08/06/22 [History Last Taken 08/06/22 10:00] isosorbide mononitrate 30 mg tablet,extended release 24 hr 30 mg PO DAILY Check with primary doctor 08/06/22 [History Last Taken Unknown] naloxegol 25 mg tablet (Movantik) 25 mg PO QAM Check with primary doctor 08/06/22 [History Last Taken Unknown] omeprazole magnesium 20 mg tablet,delayed release (Prilosec OTC) 20 mg PO DAILY Check with primary doctor 08/06/22 [History Last Taken Unknown] promethazine 25 mg tablet 25 mg PO TID PRN PRN Nausea And Vomiting 08/06/22 [History Last Taken Unknown] tizanidine 4 mg tablet 4 mg PO QHS 08/06/22 [History Last Taken 08/05/22] calcium carbonate 600 mg calcium (1,500 mg) tablet (Calcium) 600 mg PO BID 10/14/22 [History Last Taken Unknown] acetaminophen 650 mg tablet,extended release 650 mg PO Q12H 10/20/22 [History Last Taken Unknown] dapagliflozin propanediol 10 mg tablet (Farxiga) 10 mg PO DAILY 10/20/22 [History Last Taken Unknown] ibuprofen 200 mg tablet 200 mg PO Q6H PRN 10/20/22 [History Last Taken Unknown] insulin glargine 100 unit/mL (3 mL) subcutaneous pen (Lantus Solostar U-100 Insulin) 23 unit subcut DAILY Check with primary doctor 10/20/22 [History Last Taken Unknown] insulin lispro 100 unit/mL subcutaneous pen (Humalog KwikPen (U-100) Insulin) 12 unit subcut TIDCM Check with primary doctor 10/20/22 [History Last Taken Unknown] sacubitril 97 mg-valsartan 103 mg tablet (Entresto) 1 tab PO BID 10/20/22 [History Last Taken Unknown] flash glucose sensor (FreeStyle Sanam 2 Sensor kit) #2 ea 03/02/23 [Rx Last Taken Unknown] cholecalciferol (vitamin D3) 50 mcg (2,000 unit) capsule 1,000 unit PO DAILY 03/08/23 [History Last Taken Unknown] spironolactone 50 mg tablet 50 mg PO DAILY #90 tabs 03/08/23 [Rx Last Taken Unknown] carvedilol 25 mg tablet 25 mg PO BID Check with primary doctor #180 tabs 03/10/23 [Rx Last Taken Unknown] glipizide 10 mg tablet, extended release 24 hr 10 mg PO BID diabetes #180 tabs 03/14/23 [Rx Last Taken Unknown] methimazole 10 mg tablet 10 mg PO DAILY #90 tabs 03/14/23 [Rx Last Taken Unknown] dulaglutide 0.75 mg/0.5 mL subcutaneous pen injector (Trulicity) 0.75 mg (0.5 mL) subcut QWEEK #2 mL 05/11/23 [Rx Last Taken Unknown] clopidogrel 75 mg tablet (Plavix) 75 mg PO DAILY #90 tabs 05/16/23 [Rx Last Taken Unknown] Allergy/AdvReac Type Severity Reaction Status Date / Time amoxicillin trihydrate AdvReac Vomiting Verified 05/18/23 09:40 [From Augmentin] potassium clavulanate AdvReac Vomiting Verified 05/18/23 09:40 [From Augmentin] Family History Father Myocardial infarction Cancer prostate, leukemia Agent orange exposure Diabetes Sister Diabetes COPD (chronic obstructive pulmonary disease) Surgical History History of appendectomy History of back surgery History of cholecystectomy (1991) History of cholecystectomy History of coronary artery stent placement (05/19/21) History of hysterectomy History of laparoscopy History of left heart catheterization (09/14/21) History of tonsillectomy Status post insertion of nerve stimulator Social History household members: significant other Smoking Status: Current every day smoker tobacco type: cigarettes how long ago did patient quit smokin alcohol intake: current alcohol intake frequency: holidays/special occasions only substance use type: does not use caffeine: Yes EXAM Physical Exam Const Vital Signs: 05/18/23 09:40 05/18/23 13:15 05/18/23 13:03 Temperature 97.6 F L Temperature Source Temporal Pulse Rate 66 72 Respiratory Rate 18 16 Blood Pressure 151/88 H Blood Pressure Mean 109 Pulse Ox 98 99 Oxygen Delivery Method Room Air Room Air Oxygen Flow Rate (L/min) 2 MDM MDM MDM Narrative Medical decision making narrative: HISTORY OF PRESENT ILLNESS: 52-year-old female here with concern Nearly passing out this morning. States her blood pressure bottomed out notes her blood pressure was 101/46. States she notes mild shortness of breath as well. She notes she was bending over at this time felt some abdominal discomfort, nausea and lightheadedness. The patient denies recent surgery in the last 4 weeks or immobilization in the last 3 days, denies previous diagnosis of DVT or PE, hemoptysis, unilateral leg swelling or malignancy with treatment the last 6 months or palliative. No estrogen use noted. REVIEW OF SYSTEMS: Pertinent positives: Near syncope, shortness of breath Pertinent negatives: Recent illness, cough, fever, bleeding diathesis, diarrhea, vomiting, dizziness PHYSICAL EXAM: Nursing triage notes reviewed, Vital signs reviewed Constitutional: please see mdm HENT: MMM Eyes: Pupils equal round and reactive to light, Extraocular muscles intact Neck: No stridor, no JVD, full neck ROM Lungs: Clear to auscultation, No wheezing or rales. No increased work of breathing, no conversational dyspnea, no accessory muscle use, no nasal flaring. No respiratory distress noted Heart: Regular rate and rhythm, No murmurs, No rubs and No gallops, 2+ distal pulses (radial, femoral, posterior tibial) in all extremities Abdomen: Soft, there is no tenderness, rigidity, rebound or guarding, no obvious peritoneal signs, no palpable pulsatile abdominal masses, no auscultated abdominal bruit : No CVAT Extremities: No edema Neuro: No focal neurological deficits, cranial nerves II through XII intact, 5/5 strength in all extremities. Intact sensation to light touch in all extremities, 2+ reflexes bilateral patella tendons. Normal gait. No ataxia. Skin: No rash or lesions noted MEDICAL DECISION MAKING: Chief Complaint: Near syncope, shortness of breath External records reviewed: Echocardiogram from December 2022 shows ejection fraction 45% Factors affecting care: Paroxysmal A-fib on Eliquis, ischemic cardiomyopathy, CAD status post stent on Plavix, hyperlipidemia, type 2 diabetes Social determinants of health: none History obtained from others: none Consults: none [facility] Narrative: Patient was hemodynamically stable, afebrile, nontoxic-appearing. Exam without focal cardiopulmonary normalities. I considered the following differential diagnosis: Vasovagal vasovagal syncope, pacemaker malfunction, ACS, arrhythmia, anemia, electrolyte disturbance ALL IMAGES (IF OBTAINED) HAVE BEEN PERSONALLY REVIEWED AND INTERPRETED BY MYSELF. EKG with paced rhythm, normal axis, prolonged QT, no obvious ischemic changes or STEMI noted. I have personally reviewed the patient's chest x-ray. Chest x-ray is unremarkable for pulmonary edema, pneumothorax, pneumonia or focal cardiopulmonary abnormality. BMP without evidence of significant electrolyte abnormalities, no anion gap, no acute kidney injury. CBC without leukocytosis, severe anemia, no thrombocytopenia. High-sensitivity troponin is negative, no evidence of myocardial ischemia BMP within normal limits Pacemaker interrogation showed no evidence of left ventricular arrhythmia. The synthesis of the patient's history, physical exam, labs images suggest vasovagal syncope. No evidence of myocardial ischemia with 2 negative troponins. No evidence of heart failure negative BNP and noncongested chest x- ray. No evidence of significant electrolyte abnormalities or anemia. Patient no chest pain or or PE risk factors to suggest acute VTE. Pacemaker interrogation showed no evidence of significant life-threatening arrhythmia. Patient is appropriate for outpatient follow-up with her production specialist she already has a pacemaker which should protect her for any life-threatening arrhythmias. The patient and/or family, caregivers express understanding. The patient and/or family, caregivers agrees with the plan. Shared decision making: I will have a discussion with the patient and or visitors regarding risk/benefits of further testing or admission. They will be made aware of of the risk/benefits inherent in this decision they will be given the opportunity to voice understanding. Total critical care time today provided was at least 0 minutes. This excludes separately billable procedures. Critical care time (if documented) is secondary to the patient having high probability of clinically significant/life threatening deterioration in the patient's condition which required my urgent intervention. Impression: 1. Near syncope 2. History of pacemaker Dispo: Discharge Lab Data Labs: Laboratory Results - last 24 hr 05/18/23 05/18/23 10:10 12:43 WBC 4.6 RBC 4.25 Hgb 13.2 Hct 40.6 MCV 95.5 MCH 31.1 MCHC 32.5 RDW Std Deviation 47.5 H RDW Coeff of Tomi 13.5 Plt Count 195 MPV 10.2 Immature Gran % (Auto) 0.200 Neut % (Auto) 49.4 Lymph % (Auto) 43.0 H Caswell % (Auto) 6.1 Eos % (Auto) 1.1 Baso % (Auto) 0.2 Absolute Neuts (auto) 2.3 Absolute Lymphs (auto) 1.97 Nucleated RBC % 0 Sodium 140 Potassium 4.1 Chloride 111 H Carbon Dioxide 25.0 Anion Gap 4 L BUN 31 H Creatinine 1.07 H Estim Creat Clear Calc 52.51 Est GFR (MDRD) Af Amer 69 Est GFR (MDRD) Non-Af 57 L BUN/Creatinine Ratio 29.0 H Glucose 200 H Calcium 8.7 Troponin I High Sens 9 8 B-Natriuretic Peptide 49.0 Radiography Diagnostic Testing: Clinical Impression(s) from Imaging Studies Chest X-Ray 05/18/23 10:10 IMPRESSION: No acute abnormality is seen. Stable examination. Electronically Signed: Mario Alberto Joy MD at 10:34 EST , Discharge Plan Triage Chief Complaint: Syncope ED Provider: Ryan Hidalgo Dx/Rx/DC Orders Prescriptions: No Action insulin glargine [Lantus Solostar U-100 Insulin] 100 unit/mL (3 mL) insulin pen 23 unit subcut DAILY melatonin 10 mg tablet 10 mg PO HS PRN (Reason: Insomnia) hydroxyzine HCl 25 mg tablet 25 - 50 mg PO QHS PRN (Reason: anxiety) spironolactone 50 mg tablet 50 mg PO DAILY Qty: 90 12RF (DME) FreeStyle Sanam 2 [place] Misc See Rx Instructions .Route Qty: 1 0RF Rx Instructions: As directed acetaminophen 650 mg tablet extended release 650 mg PO Q12H Farxiga 10 mg tablet 10 mg PO DAILY Entresto 97-103 mg tablet 1 tab PO BID ibuprofen 200 mg tablet 200 mg PO Q6H PRN Trulicity 0.75 mg/0.5 mL pen injector 0.75 mg subcut QWEEK Qty: 2 3RF tizanidine 4 mg tablet 4 mg PO QHS Patient Comments: take 1 tablet by mouth every evening diphenhydramine HCl 25 mg Tablet 25 mg PO Q4H PRN PRN (Reason: Allergy Symptoms) promethazine 25 mg tablet 25 mg PO TID PRN PRN (Reason: Nausea And Vomiting) Patient Comments: take 1 tablet by mouth three times a day if needed for nausea and vomiting furosemide 40 mg tablet 40 mg PO DAILY atorvastatin 80 mg tablet 80 mg PO QHS hydrocodone-acetaminophen 5-325 mg tablet 1 tab PO DAILY isosorbide mononitrate 30 mg tablet extended release 24 hr 30 mg PO DAILY omeprazole magnesium [Prilosec OTC] 20 mg tablet,delayed release (DR/EC) 20 mg PO DAILY Movantik 25 mg tablet 25 mg PO QAM Rx Instructions: must be taken on empty stomach; no food 1 hr after or 2-3 hrs before dose insulin lispro [Humalog KwikPen Insulin] 100 unit/mL insulin pen 12 unit subcut TIDCM Eliquis 5 mg tablet 5 mg PO BID Qty: 60 11RF (DME) pen needle, diabetic [BD Ultra-Fine [place] Pen Needle] 32 gauge x 5/32 needle See Rx Instructions .Route Qty: 100 5RF Rx Instructions: 4x/day calcium carbonate [Calcium 600] 600 mg calcium (1,500 mg) tablet 600 mg PO BID (DME) FreeStyle Sanam 2 Sensor Kit See Rx Instructions .Route Qty: 2 5RF Rx Instructions: 1 sensor q 14 days cholecalciferol (vitamin D3) 50 mcg (2,000 unit) capsule 1,000 unit PO DAILY carvedilol 25 mg tablet 25 mg PO BID Qty: 180 3RF Rx Instructions: must administer with a meal/food glipizide 10 mg tablet extended release 24hr 10 mg PO BID Qty: 180 1RF methimazole 10 mg tablet 10 mg PO DAILY Qty: 90 1RF clopidogrel [Plavix] 75 mg tablet 75 mg PO DAILY Qty: 90 3RF Primary Care Provider: Margo Tatum Referrals: Margo Tatum DO [Primary Care Provider] -
--- NOTE | 2023-05-18 09:51 | EKG12_ITS ---
Test Reason : NEAR SYNCOPE Blood Pressure : / mmHG Vent. Rate : 074 BPM Atrial Rate : 074 BPM P-R Int : 158 ms QRS Dur : 148 ms QT Int : 494 ms P-R-T Axes : 047 023 -02 degrees QTc Int : 548 ms Atrial-sensed ventricular-paced rhythm with occasional AV dual-paced complexes and with occasional Pr emature ventricular complexes Biventricular pacemaker detected Abnormal ECG Confirmed by SAM GEE, PARAS ([id number]), web content editor JAYLIN FRANK ([id number]) on 05/23/2023 1:45:41 P M Referred By: Confirmed By:DEJUAN VARGAS MD
--- NOTE | 2023-05-18 10:10 | RAD_ITS ---
STUDY: X-RAY CHEST REASON FOR EXAM: Female, 52 years old. Chest pain TECHNIQUE: Single AP portable view of the chest. COMPARISON: Comparison is made with prior study dated August 06, 2022. FINDINGS: EKG electrodes are seen. The lungs are clear and expanded. There is no demonstrated pleural abnormality. Normal size heart. A left-sided dual-chamber pacemaker is seen. Electrodes from spinal cord similar device are seen with the tip at the T7-T8 level. Normal mediastinum and tony. Normal visualized pulmonary arteries. Normal visualized aortic arch and descending thoracic aorta. Normal visualized thoracic spine. Normal visualized ribs, clavicles, and shoulders. There is no demonstrated abnormality of the visualized soft tissue structures of the upper abdomen. RAD/Chest 1 View (Portable) IMPRESSION: No acute abnormality is seen. Stable examination. Electronically Signed: Mario Alberto Joy MD at 10:34 EST ,
[2023-05-18 10:20] LABS: Absolute Lymphocyte Count 1.97 X10^3/uL (0.83-4.51); Absolute Neutrophil Count 2.3 X10^3/uL (2.0-7.7); Basophil# 0.01 X10^3/uL; Basophil% 0.2 % (0-1); Eosinophil# 0.05 X10^3/uL; Eosinophils% 1.1 % (0-5); Hematocrit 40.6 % (37-47); Hemoglobin 13.2 g/dL (12.0-15.0); Lymphocyte # 1.97 X10^3/ul (0.83-4.51); Mean Corp Hgb Conc 32.5 g/dL (32-36); Mean Corpuscular Hgb 31.1 pg (27.0-32.0); Mean Corpuscular Volume 95.5 fL (81-99); Mean Platelet Vol. 10.2 fl (6.2-12.0); Monocyte# 0.28 X10^3/uL; Monocyte% 6.1 % (0-10); NRBC Flagged by Analyzer 0 % (0-5); Neutrophil # 2.26 X10^3/uL (2.7-7.7); Neutrophil % 49.4 % (47-70); Platelet Count 195 K/mm3 (150-450); RBC Distribution Width CV 13.5 % (11.6-14.6); RBC Distribution Width SD 47.5 fl (35.1-43.9); Red Blood Count 4.25 M/mm3 (4.2-5.4); White Blood Count 4.6 K/mm3 (4.4-11.0)
[2023-05-18 11:17] LABS: Anion Gap 4 (5-15); BUN 31 mg/dL (7-18); Calcium,Total 8.7 mg/dL (8.5-10.1); Chloride 111 mmol/L (98-107); Creatinine, Serum 1.07 mg/dL (0.55-1.02); EST Glomerular Filtration Rate 57 mL/min (>60); Est Glom Filt Rate - Afr Amer 69 mL/min (>60); Estimated Creatinine Clearance 52.51 ml/min; Glucose 200 mg/dL (74-106); Potassium 4.1 mmol/L (3.5-5.1); Sodium Level 140 mmol/L (136-145); Troponin-I HS (w/2H Reflex) 9 pg/mL (3.0-54.0)
[2023-05-18 12:13] LABS: Reflex Troponin-HS? (from REC) Y
[2023-05-18] MEDS: Acetaminophen 325 MG Tablet 650 MG PO (12:40)
[2023-05-18 13:08] LABS: Troponin-I HS 8 pg/mL (3.0-54.0)
[2023-05-18 13:15] VITALS: PULSE 72; RESP 16; O2SAT 99
[2023-05-18 13:47] LABS: Bedside Glucose 97 mg/dL (74-106)
== END 2023-05-18 14:14 | disposition home or self-care (01) ==
PROVIDERS: Emergency Provider Emergency Medicine; PCP Family Medicine; Visit Provider Emergency Medicine
DX: R55 Syncope and collapse (principal); J44.9 Chronic obstructive pulmonary disease, unspecified; I11.0 Hypertensive heart disease with heart failure; I50.22 Chronic systolic (congestive) heart failure; I48.0 Paroxysmal atrial fibrillation; E11.9 Type 2 diabetes mellitus without complications; Z79.4 Long term (current) use of insulin; E78.5 Hyperlipidemia, unspecified; I25.10 Atherosclerotic heart disease of native coronary artery without angina pectoris; I25.2 Old myocardial infarction; F17.210 Nicotine dependence, cigarettes, uncomplicated; E66.9 Obesity, unspecified; Z68.36 Body mass index [BMI] 36.0-36.9, adult; Z95.0 Presence of cardiac pacemaker; Z95.5 Presence of coronary angioplasty implant and graft; Z79.01 Long term (current) use of anticoagulants; Z79.02 Long term (current) use of antithrombotics/antiplatelets; Z79.84 Long term (current) use of oral hypoglycemic drugs; Z79.899 Other long term (current) drug therapy; Z86.16 Personal history of COVID-19
CPT/HCPCS: 36415; 71045; 80048; 82962; 83880; 84484; 85025; 93005; 99283; A4216

== ENCOUNTER → 2023-05-19 | Outpatient (CLI) | payer OTHER, MEDICARE, MEDICAID, SELFPAY ==
[2022-02-26 14:11] VITALS: BMI 35.5
--- NOTE | 2023-05-19 11:52 | US_ITS ---
INDICATION: thyroid nodules EXAMINATION: Ultrasound US Thyroid (eg thyroid, parathyroid, parotid) TECHNIQUE: Chinchilla scale and color doppler imaging was performed of the thyroid gland. COMPARISON: Prior study dated: 04/12/2022 FINDINGS: RIGHT THYROID LOBE: 5.4 x 1 x 1.5 cm, volume 7.8 mL. Previously 4.7 x 1.8 x 1.3 cm. Parenchyma: The gland echotexture is homogenous. Thyroid vascularity is normal. LEFT THYROID LOBE: 5.3 x 1.8 x 1.9 cm, volume 9 mL. Previously 5.6 x 2 x 1.8 cm. Parenchyma: The gland echotexture is homogenous. Thyroid vascularity is normal. ISTHMUS: 0.5 cm in maximum AP dimension. Estimated total number of nodules greater than equal to 1 cm: 4. Embroidery Specialist nodules are described as follows: 1. Location: Right mid Size: 1.8 x 1.5 x 1 cm, volume 1.6 mL. Previously: 1.9 cm. Nodule characteristics: Composition: Mixed cystic and solid (1). Echogenicity: Isoechoic (1). Shape: Wider than tall (0). Margins: Smooth (0). Echogenic Foci: None (0). ACR TI-RADS total points: 2. Previous 2. ACR TI-RADS category: 2. Previous 2 2. Location: Left upper Size: 1.5 x 0.6 x 0.8 cm, volume 0.4 mL. Previously: 1.2 x 0.7 x 0.7 cm, volume 0.3 mL. Nodule characteristics: Composition: Solid or almost completely solid (2). Echogenicity: Hypoechoic (2). Shape: Wider than tall (0). Margins: Smooth (0). Echogenic Foci: None (0). ACR TI-RADS total points: 4. Previous 4. ACR TI-RADS category: 4. Previous 4 3. Location: Left mid Size: 0.8 x 0.7 x 1 cm, volume 0.3 mL. Previously: 0.8 x 0.6 x 0.8 cm, volume 0.2 mL. Nodule characteristics: Composition: Spongiform (0). ACR TI-RADS total points: 0. Previous 0. ACR TI-RADS category: 1. Previous 1 4. Location: Left lower Size: 2.7 x 1.9 x 2 cm, volume 5.3 mL. Previously: 2.7 x 1.9 x 1.9 cm, volume 5.1 mL. Nodule characteristics: Composition: Mixed cystic and solid (1). Echogenicity: Isoechoic (1). Shape: Wider than tall (0). Margins: Lobulated (2). Echogenic Foci: None (0). ACR TI-RADS total points: 4. Previous 4. ACR TI-RADS category: 4. Previous 4 LYMPH NODES: No lymphadenopathy is seen in the tissue surrounding the thyroid gland. US/Thyroid IMPRESSION: Multiple bilateral thyroid nodules are again noted without significant change from prior study. Based on the size and appearance of these nodules, nodule # I, 2, and 4 would be appropriate for fine-needle aspiration if not previously performed. ACR TI-RADS RECOMMENDATION REFERENCE: Ultrasound-guided fine-needle aspiration, follow-up ultrasound, no further follow-up. *TR 1 (0 points) and TR 2 (2 points): No FNA or follow-up. *TR 3 (3 points): FNA if more than or equal to 2.5 cm in maximum dimension. Follow-up ultrasound in 1, 3, and 5 years if 1.5 to 2.4 cm in maximum dimension. *TR 4 (4-6 points): FNA if more than or equal to 1.5 cm in maximum dimension. Follow-up ultrasound in 1, 2, 3, and 5 years if 1 to 1.4 cm in maximum dimension. *TR 5 (more than or equal to 7 points): FNA if more than or equal to 1 cm in maximum dimension. Follow-up ultrasound every year for 5 years if 0.5 to 0.9 cm in maximum dimension. *TR 3, TR 4, or TR 5 nodules that are below the size threshold for follow-up receive no follow-up. Electronically Signed: William Boss MD at 23:13 EST ,
== END | disposition home or self-care (01) ==
LOC: US 11:47
PROVIDERS: PCP Family Medicine; Visit Provider Surgery
DX: E04.2 Nontoxic multinodular goiter (principal); E05.90 Thyrotoxicosis, unspecified without thyrotoxic crisis or storm
CPT/HCPCS: 76536

== ENCOUNTER → 2023-06-24 | Outpatient (CLI) | payer OTHER, MEDICARE, MEDICAID, SELFPAY ==
[2022-02-26 14:11] VITALS: BMI 35.5
--- NOTE | 2023-06-24 10:15 | FLU_PTH ---
PATHOLOGY RESULTS PATIENT: PITO CLARK LOC: [facility] U#:[id number] AGE/SX: 52/F ROOM: RE06/24/[address]: Dr. Edward Hancock MD : 1970 BED: DIS: 06/24/2023 SPEC #: [id number] RECD: 06/24/23 13:49 STATUS: DAXA REMathew #: [id number] HOWARD: 06/24/23 10:[address]: Edward Hancock DEPT: CYTOLOGY RECD BY: Yari Chavez ENTERED: 06/27/23 09:29 SP TYPE: Fluid OTHR DR: Dr. Margo Tatum DO Tissues: Thyroid gland, NOS Thyroid gland, NOS Procedures: Special Stain Group II Surgery Specimen Level IV Cytospin Fluid Cytology Other HEADER OPERATION: Fine needle aspiration of thyroid nodule PRE-OP DIAGNOSIS: Thyroid nodules TISSUE SUBMITTED: A - Left upper thyroid nodule fluid, B - Left upper thyroid nodule x4 slides DIAGNOSIS CYTOLOGY A. Fine needle aspiration, left upper thyroid nodule (cytospin and cell block): Negative for malignant cells. See comment. B. Fine needle aspiration, left upper thyroid nodule (smears): Nondiagnostic, Nabb Category I. See comment. AM:riley 06/28/2023 COMMENT A. Follicular cells are not present. B. The specimen is virtually acellular, containing blood and no follicular cells. Clinical correlation is suggested. The Nabb System for thyroid diagnostic categorization was used in the evaluation of this case. CYTOLOGY STUDY Slides are reviewed. CYTOLOGY GROSS A - Received is 30 ml of red cloudy fluid labeled with the patient's name and and designated per the requisition as left upper thyroid. Submitted for cytology preparation including cell block. B - Received are four smears labeled with the patient's name and designated per the requisition as left upper thyroid. Submitted for staining. / riley 06/27/2023 TC:5 CPT: 23493 x2, [id number]
--- OUTSIDE RECORDS SUMMARY | 2023-06-24 14:23 | XMS RPT_ITS | CCD ---
Author Name Unknown Address [address] [place] [address] Organization [facility] Care Team Providers Care It Generalist Name Role Phone Roof Bryan HILL Unavailable Margo Tatum DO Primary Care Provider [phone] RIKKIYS, MARGO Primary Care Unavailable LISHA MONROY Attending Unavailable GARNICA, MICKI Primary Care Unavailable MALYS, MARGO Primary Care Unavailable MALYS, MARGO Attending Unavailable SELF, SELF Referring Unavailable KRISTINALIZBETH Attending Unavailable MALYS, MARGO Primary Care Unavailable VITO, SERAFIN G Referring Unavailable MALYS, MARGO Primary Care Unavailable ROOF, BRYAN Referring Unavailable VITO, SERAFIN G Attending Unavailable MALYS, MARGO Primary Care Unavailable VITO, SERAFIN G Admitting Unavailable VITO, SERAFIN G Attending Unavailable VITO, SERAFIN G Referring Unavailable Allergies Allergy Classification Reported Allergen(s) Allergy Type Date of Onset Reaction(s) Facility (2 sources) Amoxicillin / Clavulanate Drug Allergy 08-18-2022 [facility] Medications Current Medications Medication Drug Class(es) Dates Sig (Normalized) Sig (Original) acetaminophen 325 mg / HYDROcodone bitartrate 5 mg oral tablet (2 sources) Opioid Agonist take 1 tablet by mouth every four hours as needed hydroCODone-acetamin ophen 5-325 MG tablet Take 1 tablet by mouth every 4 hours as needed. 0 Active apixaban 5 mg oral tablet (2 sources) Factor Xa Inhibitor Eliquis 5 MG tablet Take by mouth every 12 hours. 0 Active atorvastatin 80 mg oral tablet (2 sources) HMG-CoA Reductase Inhibitor take 1 tablet by mouth once daily atorvastatin 80 MG tablet Take 1 tablet by mouth daily. 0 Active carvedilol 25 mg oral tablet (2 sources) alpha-Adrenergic Renee, beta-Adrenergic Renee take 1 tablet by mouth twice daily at mealtime carveDILOL 25 MG tablet Take 1 tablet by mouth 2 times daily with meals. 0 Active clopidogrel 75 mg oral tablet (2 sources) P2Y12 Platelet Inhibitor take 1 tablet by mouth once daily Clopidogrel 75 MG tablet Take 1 tablet by mouth daily. 0 Active dapagliflozin 5 mg oral tablet (2 sources) Sodium-Glucose Cotransporter 2 Inhibitor take 2 tablets by mouth once daily dapagliflozin 5 MG tablet Take 2 tablets by mouth daily. 0 Active Completed/Discontinued Medications Medication Drug Class(es) Dates Sig (Normalized) Sig (Original) acetaminophen 325 mg oral tablet (2 sources) Start: 09-20-2022 End: 09-20-2022 Acetaminophen (TYLENOL) tablet 975 mg Problems Active Problems Problem Classification Problem Date Documented Date Episodic/Chronic Conduction disorders (2 sources) Left bundle-branch block, unspecified; Translations: [Left bundle-branch block, unspecified] Onset: 05-06-2022 Chronic Congestive heart failure; nonhypertensive (2 sources) Unspecified systolic (congestive) heart failure; Translations: [Unspecified systolic (congestive) heart failure] Onset: 05-06-2022 Chronic Coronary atherosclerosis and other heart disease (2 sources) Atherosclerotic heart disease of [place] coronary artery without angina pectoris; Translations: [Atherosclerotic heart disease of [place] coronary artery without angina pectoris] Onset: 05-06-2022 Chronic Diabetes mellitus with complications (2 sources) Type II diabetes mellitus uncontrolled; Translations: [Diabetes mellitus without mention of complication, type II or unspecified type, uncontrolled] Onset: 01-01-2012 Chronic Diabetes mellitus without complication (2 sources) Type 2 diabetes mellitus without complication; Translations: [Type 2 diabetes mellitus without complications] Onset: 08-11-2022 08-11-2022 Chronic Disorders of lipid metabolism (2 sources) Mixed hyperlipidemia; Translations: [Mixed hyperlipidemia] Onset: 01-01-2012 Chronic Essential hypertension (2 sources) Benign essential hypertension; Translations: [Essential (primary) hypertension] Onset: 01-01-2012 Chronic Infective arthritis and osteomyelitis (except that caused by tuberculosis or sexually transmitted disease) (2 sources) Paraspinal abscess; Translations: [Osteomyelitis of vertebra, site unspecified] Onset: 01-02-2012 Chronic Other connective tissue disease (1 source) Pain in left arm; Translations: [Pain in left arm] Episodic Other connective tissue disease (2 sources) Pain in left arm; Translations: [Pain in left arm] Onset: 09-20-2022 Episodic Pura-; endo-; and myocarditis; cardiomyopathy (except that caused by tuberculosis or sexually transmitted disease) (5 sources) Cardiomyopathy; Translations: [Other cardiomyopathies] Onset: 08-11-2022 Chronic Spondylosis; intervertebral disc disorders; other back problems (2 sources) Lumbar discitis; Translations: [Discitis, unspecified, lumbar region] Onset: 01-02-2012 Chronic Past or Other Problems Problem Classification Problem Date Documented Da te Episodic/Chronic Coronary atherosclerosis and other heart disease (2 sources) Presence of coronary angioplasty implant and graft; Translations: [Presence of coronary angioplasty implant and graft] Onset: 05-06-2022 Episodic Skin and subcutaneous tissue infections (2 sources) Abscess; Translations: [Cellulitis, unspecified] Onset: 01-01-2012 Episodic Spondylosis; intervertebral disc disorders; other back problems (2 sources) Backache; Translations: [Dorsalgia, unspecified] Onset: 01-01-2012 Episodic Results Test Name Value Interpretation Reference Range Facil ity Vital Signs Date Time Vital Sign Value Performing Clinician Faci lity 09-20-2022 20:05-0400 Diastolic blood pressure 117 mm[Hg] Lisha Monroy MD, PhD Work Phone: [facility] 09-20-2022 20:05-0400 Heart rate 99 /min Lisha Monroy MD, PhD Work Phone: [facility] 09-20-2022 20:05-0400 Respiratory rate 25 /min Lisha Monroy MD, PhD Work Phone: [facility] 09-20-2022 20:05-0400 SaO2% (BldA) [Mass fraction] 98 % Lisha Monroy MD, PhD Work Phone: [facility] 09-20-2022 20:05-0400 Systolic blood pressure 200 mm[Hg] Lisha Monroy MD, PhD Work Phone: [facility] 09-20-2022 15:04-0400 Body temperature 97.59 [degF] Lisha Monroy MD, PhD Work Phone: [facility] 09-20-2022 14:59-0400 Body height 163.8 cm Lisha Monroy MD, PhD Work Phone: [facility] 08-18-2022 17:30-0400 Diastolic blood pressure 58 mm[Hg] Serafin Acevedo MD Work Phone: [facility] 08-18-2022 17:30-0400 Heart rate 83 /min Serafin Acevedo MD Work Phone: [facility] 08-18-2022 17:30-0400 Respiratory rate 16 /min Serafin Acevedo MD Work Phone: [facility] 08-18-2022 17:30-0400 SaO2% (BldA) [Mass fraction] 96 % Serafin Acevedo MD Work Phone: [facility] 08-18-2022 17:30-0400 Systolic blood pressure 112 mm[Hg] Serafin Acevedo MD Work Phone: [facility] 08-18-2022 08:30-0400 Body height 162.6 cm Serafin Acevedo MD Work Phone: [facility] 08-18-2022 08:30-0400 Body mass index (BMI) [Ratio] 37.59 kg/m2 Serafin Acevedo MD Work Phone: [facility] 08-18-2022 08:30-0400 Body temperature 97.7 [degF] Serafin Acevedo MD Work Phone: [facility] 08-18-2022 08:30-0400 Body weight 99.34 kg Serafin Acevedo MD Work Phone: [facility] Encounters Encounter Date Encounter Type Care Provider Facility Start: 10-04-2022 ambulatory MARGO MALYS Facility:[facility] Start: 09-20-2022 End: 09-20-2022 Emergency department patient visit [facility] Facility:[facility] Start: 09-20-2022 End: 09-20-2022 Emergency department patient visit Lisha Monroy MD, PhD Work Phone: [facility] Emergency Department Start: 09-20-2022 ambulatory LIZBETH ACEVEDO [facility] y:[facility] Start: 08-18-2022 End: 08-[facility] Start: 08-18-2022 End: 08-18-2022 Subsequent hospital visit by physician Serafin Acevedo MD Work Phone: Cardiology Invasive Prep and Recovery Procedures Date Procedure Procedure Detail Performing Clinician Start: 09-20-2022 Ct thorax w/contrast material Iza Paulson DO Work Phone: Start: 09-20-2022 Radiologic exam chest 2 views Edward Pandey MD Work Phone: Start: 09-20-2022 CBC AND ELECTRONIC DIFF Edward Pandey MD Work Phone: Start: 09-20-2022 Complete blood count with white cell differential, automated Edward Pandey MD Work Phone: Start: 09-20-2022 GOLD TOP TUBE Edward Pandey MD Work Phone: Start: 09-20-2022 Gonadotropin chorion ic quantitative Edward Pandey MD Work Phone: Start: 09-20-2022 Hepatic function panel Edward Pandey MD Work Phone: Start: 09-20-2022 LACTATE, WHOLE BLOOD, SERIAL Edward Pandey MD Work Phone: Start: 09-20-2022 MINT GREEN TOP TUBE Cameron zeny Pandey MD Work Phone: Start: 08-18-2022 Glucose measurement, blood Serafin Acevedo MD Work Phone: Start: 08-18-2022 Radiologic exam chest 2 views Serafin Acevedo MD Work Phone: Start: 08-18-2022 Cardiac electrophysiology Serafin Acevedo MD Work Phone: Start: 08-18-2022 Insj/rplcmt perm dfb w/trnsvns lds 1/dual chmbr Serafin Acevedo MD Work Phone: Start: 08-18-2022 Glucose measurement, blood Serafin Acevedo MD Work Phone: Start: 08-18-2022 CBC AND ELECTRONIC DIFF Madhuri Cruz [employer] Work Phone: Start: 08-18-2022 Complete blood count with white cell differential, automated Madhuri Cruz [employer] Work Phone: Start: 08-18-2022 Creatinine blood Derekssrajesh Cruz [employer] Work Phone: Plan of Treatment Date Care Activity Detail Author Start: 03-25-2026 Tetanus vaccination TETANUS [facility] Start: 09-21-2023 Potassium [Moles/volume] in Serum or Plasma POTASSIUM [facility] Start: 02-04-2023 Influenza vaccination INFLUENZA VACCINE (Season Ended) [facility] Start: 09-20-2022 End: 09-20-2022 Patient encounter procedure 09/20/2022 Office Visit Cardiovascular Medicine Lizbeth Acevedo MD [address] [place] [address] [facility] Start: 02-04-2022 Influenza vaccination INFLUENZA VACCINE (#1) [facility] Start: 12-12-2019 Zoster vaccine hzv live for subcutaneous use ZOSTER (SHINGLES) VACCINE (1 of 2) [facility] Start: 2014 Screening for malignant neoplasm of colon COLORECTAL CANCER SCREENING DISCUSSION [facility] Start: 2009 Lipid panel LIPID SCREENING [facility] Start: 2009 Screening for malignant neoplasm of breast MAMMOGRAM SCREENING DISCUSSION [facility] Start: 1990 Screening for malignant neoplasm of cervix CERVICAL CANCER SCREENING DISCUSSION [facility] Start: 1984 HIV screening HIV SCREENING DISCUSSION [facility] Start: 06-13-1970 COVID-19 VACCINE (#1) COVID-19 VACCINE (#1) [facility] Start: 1969 Hepatitis C screening HEPATITIS C VIRUS SCREENING [facility] Bacteria identified in Blood by Culture [facility] End: 08-18-2022 Interrogation of cardiac pacemaker PACEMAKER/ICD INTERROGATION Cardiac Services Routine One Time for 1 Occurrences starting 08/18/2022 until 08/18/2022 [facility] Work Phone: Payers Date Payer Category Payer Medicaid [facility] MED[facility] MEDICAID [id number] 2022-Present [address] [place] [address] [id number] 2022 Medicare [facility] [id number] 2022-Present [address] [place] [address] [id number] 2022 Medicare [id number] 2011 Unknown [id number] 1969 Unknown [id number] 1969 Unknown [id number] 1969 Unknown [id number] 1969 Unknown [id number] 1969 Unknown [id number] 1969 Unknown [id number] Medicaid [id number] Social History Date Type Detail Facility Start: [facility]10-2011 [facility] Start: 08-18-2022 End: 09-20-2022 Alcohol intake Current non-drinker of alcohol (finding) [facility] Start: 1970 Sex Assigned At Not on file [facility] Start: 08-08-2022 End: 09-20-2022 Exposure to SARS-CoV-2 (event) Not sure [facility] Medical Equipment Procedure Code Equipment Code Equipment Origin al Text Equipment Identifier Dates Defibrillator Ca rdiac .99cm 5.37x8.18cm Vigilant X4 Mr - [id number] Start: 08-18-2022 Lead Pacing 86cm 3.9-5.2fr 2.6fr Acuity X4 Quadripolar Kristina - [id number] Start: 08-18-2022 Clinical Notes 07-09-2021 to 09-20-2022 Discharge InstructionsLisha Monroy MD, PhD - 09/20/2022 3:44 PM EDClint Monroy MD, PhD - 09/20/2022 3:44 PM Aaliyah Brannon RN - 09/20/2022 3:00 PM EDTDischarge Instructions Note Date & Type Note Facility 09-20-2022 Hospital Discharge instructions Iza Paulson DO - 09/20/2022 8:52 PM EDT You were seen and evaluated here in the [facility] Emergency Department with concerns for ongoing left arm pain after the placement of year implantable defibrillator. Your CT imaging was negative for infection. As discussed you should alternate Tylenol and Motrin every 4 hours for your baseline pain relief, you were prescribed both gabapentin and Medrol, please using instructed. Please follow-up the painter spray after discharge. If your symptoms fail to improve or worsen despite treatment, please follow-up promptly with your PCP or if unable to do so you may return to the emergency department. 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 female. Recurrent redness and swelling around incision. Had post op ICD placement infection was on oral antibiotics. She is more concerned about L arm swelling. Associated radiating pain down her arm. BP 153/90 Pulse 74 Temp 97.6 F (36.4 C) (Oral) Resp 18 Ht 1.638 m (5' 4.5 ) SpO2 95% BMI 37.99 kg/m Smoking Status Never Incision site for ICD battery appears well with no erthymea, mobile nontender no fluctuance Lisha Monroy MD, PhD Medical Decision Making Patient was evaluated and was very tearful. She reports significant left arm pain that radiates down her arm. DDx includes acute illnesses including post operative edema, post operative abscess, nerve pain due to edema around battery pocket, cellulitis, phantom arm pain. The pocket appeared well with no erythema. No fluctuance, low suspicion for cellulitis or deep abscess. WE planned for labs which were wnl. We also obtained a CT chest which I did not see large abscess. She follows with a back pain specialist and was prescribed viocodin for her back pain which helped but she ran out and not yet to see them until September 28. She reports taking 1600mg of motrin BID without relief. When encouraged to take additional tylenol she reports she is taking alternating tylenol as well without relief. I also discussed potential neuropathic pain and additional gabapentin, patient reported she took gabapentin for her back in the past without relief for her back. We attempted to redirect goals of pain control. We also discussed timing of meds alternating motrin 600mg q3h with 650mg of tylenol. We would write schedule in her discharge planning for help on timing. We could trial a dose of gabapentin. We recommend she follow with her back pain specialist. We also could trial a dose of steroids if edema around the battery site is causing edema and compression of nerves. Amount and/or Complexity of Data Reviewed External Data Reviewed: labs, radiology and notes. Labs: ordered. Radiology: ordered. Risk OTC drugs. Prescription drug management. Decision regarding hospitalization. On 09/20/2022 I saw and personally examined this patient with the resident. I provided a substantive portion of the care for this patient. I personally performed all aspects of the medical decision making for this encounter. I have reviewed and verified this with the resident so that it accurately reflects our care. The resident and I spoke with the patient and provided written and verbal instructions for the patient I was present for the wu or critical portions of the documented procedures for the patient. . Lisha Monroy MD, PhD 09/21/22 0147 [facility] Work Phone: 09-20-2022 Emergency department Note ED Attending Chief Complaint Patient presents with Post-Op Problem Chills Past Medical History: Diagnosis Date Diabetes HLD (hyperlipidemia) HTN (hypertension) TB lung, latent 2004 s/p treatment Pito Hendrix is a 51 y.o. female. Recurrent redness and swelling around incision. Had post op ICD placement infection was on oral antibiotics. She is more concerned about L arm swelling. Associated radiating pain down her arm. BP 153/90 Pulse 74 Temp 97.6 F (36.4 C) (Oral) Resp 18 Ht 1.638 m (5' 4.5 ) SpO2 95% BMI 37.99 kg/m Smoking Status Never Incision site for ICD battery appears well with no erthymea, mobile nontender no fluctuance Lisha Monroy MD, PhD Medical Decision Making Patient was evaluated and was very tearful. She reports significant left arm pain that radiates down her arm. DDx includes acute illnesses including post operative edema, post operative abscess, nerve pain due to edema around battery pocket, cellulitis, phantom arm pain. The pocket appeared well with no erythema. No fluctuance, low suspicion for cellulitis or deep abscess. WE planned for labs which were wnl. We also obtained a CT chest which I did not see large abscess. She follows with a back pain specialist and was prescribed viocodin for her back pain which helped but she ran out and not yet to see them until September 28. She reports taking 1600mg of motrin BID without relief. When encouraged to take additional tylenol she reports she is taking alternating tylenol as well without relief. I also discussed potential neuropathic pain and additional gabapentin, patient reported she took gabapentin for her back in the past without relief for her back. We attempted to redirect goals of pain control. We also discussed timing of meds alternating motrin 600mg q3h with 650mg of tylenol. We would write schedule in her discharge planning for help on timing. We could trial a dose of gabapentin. We recommend she follow with her back pain specialist. We also could trial a dose of steroids if edema around the battery site is causing edema and compression of nerves. Amount and/or Complexity of Data Reviewed External Data Reviewed: labs, radiology and notes. Labs: ordered. Radiology: ordered. Risk OTC drugs. Prescription drug management. Decision regarding hospitalization. On 09/20/2022 I saw and personally examined this patient with the resident. I provided a substantive portion of the care for this patient. I personally performed all aspects of the medical decision making for this encounter. I have reviewed and verified this with the resident so that it accurately reflects our care. The resident and I spoke with the patient and provided written and verbal instructions for the patient I was present for the wu or critical portions of the documented procedures for the patient. . Lisha Monroy MD, PhD 09/21/22 0147 PT had ICD/defib placed 2 weeks ago at this facility. Post-op care was being completed at OSH. Pt had received two rounds of oral antibiotics for suspected infection. Pt was seen in Heart Failure clinic today, staff reached out to EP lab was site is site swollen, red, and warmth. Symptoms radiate down L arm. EP lab wanted patient sent to ER for further evaluation. documented in this encounter [facility] 09-20-2022 Emergency department Note PT had ICD/defib placed 2 weeks ago at this facility. Post-op care was being completed at OSH. Pt had received two rounds of oral antibiotics for suspected infection. Pt was seen in Heart Failure clinic today, staff reached out to EP lab was site is site swollen, red, and warmth. Symptoms radiate down L arm. EP lab wanted patient sent to ER for further evaluation. [facility] 08-18-2022 Note Formatting of this n ote might be different from the original. After Visit Summary reviewed with patient by Reena KRISHNAN, and all questions answered. RN reviewed what medications patient still needs for the day, patient verbalized understanding. IV dc'd with no difficulty and tip intact. Telemetry dc'd. VS stable at time of discharge. Patient being discharged to home by wheelchair with family. No patient belongings left at bedside. No further issues at time of discharge. [facility] Miscellaneous Notes After Visit Summary reviewed with patient by Reena KRISHNAN, and all questions answered. RN reviewed what medications patient still needs for the day, patient verbalized understanding. IV dc'd with no difficulty and tip intact. Telemetry dc'd. VS stable at time of discharge. Patient being discharged to home by wheelchair with family. No patient belongings left at bedside. No further issues at time of discharge. Reena Hahn RN 0830am Report of PIV WITH ULTRASOUND GUIDANCE Consultation and Evaluation: Patient seen and evaluated for PIV insertion using ultrasound guidance. ID band present, allergies and limb precautions verified with patient/nurse. Skin integrity within normal limits at time of insertion. No evidence of ecchymosis, infiltration, hematoma, edema, or any condition that would prevent safe insertion of a PIV [X ] ultrasound used [ ] ultrasound not used Procedure explained to patient. Anatomical distortion to interfere with placement: none PROCEDURE DETAILS: PIV Insertion Procedure Using standard aseptic technique access was obtained. Good blood return noted, catheter flushed easily with 10mls 0.9 NS per lumen. Securement device used to secure PIV. Dressing applied. Pt denies pain at insertion site. Peripheral IV Line - Single Lumen 08/18/22829 forearm, anterior, left 20 gauge;1 1/4 in length (Active) 08/18/22829 Present On Admission : no Guiding Device: ultrasound Lumen 1: Location: forearm, anterior, left Device/Lot Number: [id number] catheter system Gauge/Length: 20 gauge;1 1/4 in length Unsuccessful Insertion Attempts: Unsuccessful Attempt Location/Site: Pain Prevention/Patient Tolerance: Removal: Additional Comments: Lumen 2: Lumen 3: Peripheral IV Present on Admission: (Retired/Read Only) Location: (Retired/Read Only) Device: (Retired/Read Only) Gauge/Length: Returned Materials Inspector/Lot Number: Unsuccessful Insertion Attempts: (Retired/Read Only) Unsuccessful Attempt Locations: Pain Prevention: Patient Tolerance: Insertion: Removal Indication: Peripheral IV Location - Orientation: Peripheral IV Location: Insertion Site WDL WDL 08/18/22854 Site Preparation/Maintenance site cleansed: chlorhexidine solution 08/18/22854 Lumen 1 Patency/Maintenance flushed without difficulty;blood return, able to obtain 08/18/22854 Phlebitis 0-->no symptoms 08/18/22854 Infiltration 0-->no symptoms 08/18/22854 Patient tolerated procedure well without any complications [] Lidocaine 1% used prior insertion [] No Lidocaine used Extra insertion note if applicable: RN notified of procedure completion [ x] Obtained labs. [X] Call light in reach. [X] Bed low and locked. [X] Tray table within reach. Education: Patient/Family informed to notify nurse of any complications including pain, redness, swelling, or leakage post insertion. Pt arrives to room 2406 in [facility] for BIV/ICD. IV started in left arm. Labs drawn and sent. 0.9 NS IVF initiated @ [facility]. Pt prep completed. Valuables given to Ranjit. Clothes secured in room. Questions about procedure answered. Family brought to bedside. Bed in low position, side rail up x2 and call light given to pt. Tele monitor shows NSR. Reena Hahn RN documented in this encounter [facility] 08-18-2022 Hospital Discharge instructions FIDELIA Willis - 08/18/2022 9:58 AM EDT WHAT TO DO IF YOU RECEIVE A SHOCK FROM YOUR ICD If you get a shock from your ICD, do not drive for your safety and the safety of others until your device has been checked, or you have been cleared by your healthcare provider. If you are not sure about what to do after a shock from your ICD, call 911. If you get a shock from your ICD and feel that your heart rhythm is back to normal, you do not feel short of breath or lightheaded, and have no chest discomfort, you do not need to call 911. Sit down and call the Device Clinic that day or the next business day. If you get more than one shock from your ICD in a day or you feel short of breath or lightheaded or have chest discomfort, call 911 right away. If you pass out, have someone call 911 and start CPR. CPR should continue until the rescue squad arrives. If the ICD fires while someone is giving you CPR, they may feel a slight shock. This is not harmful to them. [facility] ([phone]) FIDELIA Willis - 08/18/2022 9:57 AM EDT YOUR ACTIVITY RESTRICTIONS FOR THE NEXT FOUR WEEKS Avoid lifting any objects heavier than 10 pounds Avoid raising your device side arm above your shoulder. We encourage you to use the arm on the ICD implanted side as long as the movement is below shoulder level and within the lifting restrictions. Avoid activities that require pushing or pulling heavy objects Avoid vigorous exercise which would include the following: Washing windows or adler Vacuuming Tennis and golf but you may practice putting Lifting weights Running, jogging, or aerobics Contact sports Snow shoveling Mowing the lawn Chopping wood It is ok to lift your arms up to wash your hair but you should not be raising your arm on a repetitive basis. You must wait six weeks post implant before resuming a full golf swing DRIVING RESTRICTIONS You are not allowed to drive for 48 hours after your surgery Patients who have had a syncopal episode (or passed out) have an additional restriction: They are not allowed to drive for three months after their last syncopal (passing out) episode. If you have questions regarding this restriction, please contact your physician s office, not the Device Clinic LIA Lopez - 08/18/2022 9:58 AM EDT Diet: Your doctor has recommended that you follow these diet instructions at home. Refer to the patient education materials you received during your hospital stay. If you would like more nutrition counseling, ask your doctor about making an appointment with an outpatient dietitian. Heart Healthy Diet to promote heart health. Choose healthy fats and oils such as canola or olive oil. Limit high cholesterol foods. Avoid added salt and caffeine in your foods. Controlled Carbohydrate Diet This diet controls carbohydrate intake to help manage and maintain consistent blood glucose levels. Simple sugars are limited and carbohydrate intake is balanced throughout the day. Avoid adding salt to your food and use heart healthy fats such as canola or olive oil. LIA Lopez - 08/18/2022 9:58 AM EDT Images from the original note were not included. Call the Device Clinic if you have: A shock from the ICD. If you have more than one shock in 24 hours, call 911 Dizziness, lightheadedness, or you pass out A very fast heartbeat or a heartbeat greater than 125 beats per minute for longer than 5 minutes at rest. Unusual shortness of breath Other signs that concern you If you have any of these signs and need medical help right away, call 911. When you are nauseated, you may feel weak and sweaty and notice a lot of saliva in your mouth. Nausea often leads to vomiting. Most of the time you do not need to worry about nausea and vomiting, but they can be signs of other illnesses. The doctor has checked you carefully, but problems can develop later. If you notice any problems or new symptoms, get medical treatment right away. Follow-up care is a wu part of your treatment and safety. Be sure to make and go to all appointments, and call your doctor if you are having problems. It's also a good idea to know your test results and keep a list of the medicines you take. How can you care for yourself at home? To prevent dehydration, drink plenty of fluids, enough so that your urine is light yellow or clear like water. Choose water and other caffeine-free clear liquids until you feel better. If you have kidney, heart, or liver disease and have to limit fluids, talk with your doctor before you increase the amount of fluids you drink. Rest in bed until you feel better. When you are able to eat, try clear soups, mild foods, and liquids until all symptoms are gone for 12 to 48 hours. Other good choices include dry toast, crackers, cooked cereal, and gelatin dessert, such as Jell-O. When should you call for help? Call 911 anytime you think you may need emergency care. For example, call if: You passed out (lost consciousness) Call your doctor now or seek immediate medical care if: You have symptoms of dehydration, such as: Dry eyes and a dry mouth Passing only a little dark urine Feeling thirstier than usual You have new or worsening belly pain You have a new or higher fever You vomit blood or what looks like coffee grounds Watch closely for changes in your health, and be sure to contact your doctor if: You have on going nausea and vomiting Your vomiting gets worse Your vomiting last longer than 2 days You are not getting better as expected Where can you learn more? Go to [email or web address]. FIDELIA Willis - 08/18/2022 9:58 AM EDT Your incision care The pacemaker may buldge slightly under the skin. This is normal and common right after surgery. This will lesson over the nxt few weeks. You may have bruising around the incision, especially if you take blood thinner medicines, called anticoagulants, such as aspirin or warfarin. Itching is a normal part of the healing process. Try not to rub or scratch the incision site. Keep your incision clean and dry. Your dressing is waterproof and can be worn in the shower. Your dressing can be left in place for up to seven (7) days. Dressing may need to be changed sooner, depending on the amount of fluid it absorbs. Dressing flexes with skin during body movement. documented in this encounter [facility] 08-18-2022 Note Formatting of this n ote is different from the original. 0830am Report of PIV WITH ULTRASOUND GUIDANCE Consultation and Evaluation: Patient seen and evaluated for PIV insertion using ultrasound guidance. ID band present, allergies and limb precautions verified with patient/nurse. Skin integrity within normal limits at time of insertion. No evidence of ecchymosis, infiltration, hematoma, edema, or any condition that would prevent safe insertion of a PIV [X ] ultrasound used [ ] ultrasound not used Procedure explained to patient. Anatomical distortion to interfere with placement: none PROCEDURE DETAILS: PIV Insertion Procedure Using standard aseptic technique access was obtained. Good blood return noted, catheter flushed easily with 10mls 0.9 NS per lumen. Securement device used to secure PIV. Dressing applied. Pt denies pain at insertion site. Peripheral IV Line - Single Lumen 08/18/22 0830 forearm, anterior, left 20 gauge;1 1/4 in length (Active) 08/18/22 0830 Present On Admission : no Guiding Device: ultrasound Lumen 1: Location: forearm, anterior, left Device/Lot Number: [id number] catheter system Gauge/Length: 20 gauge;1 1/4 in length Unsuccessful Insertion Attempts: Unsuccessful Attempt Location/Site: Pain Prevention/Patient Tolerance: Removal: Additional Comments: Lumen 2: Lumen 3: Peripheral IV Present on Admission: (Retired/Read Only) Location: (Retired/Read Only) Device: (Retired/Read Only) Gauge/Length: Returned Materials Inspector/Lot Number: Unsuccessful Insertion Attempts: (Retired/Read Only) Unsuccessful Attempt Locations: Pain Prevention: Patient Tolerance: Insertion: Removal Indication: Peripheral IV Location - Orientation: Peripheral IV Location: Insertion Site WDL WDL 08/18/22854 Site Preparation/Maintenance site cleansed: chlorhexidine solution 08/18/22854 Lumen 1 Patency/Maintenance flushed without difficulty;blood return, able to obtain 08/18/22854 Phlebitis 0-->no symptoms 08/18/22854 Infiltration 0-->no symptoms 08/18/22854 Patient tolerated procedure well without any complications [] Lidocaine 1% used prior insertion [] No Lidocaine used Extra insertion note if applicable: RN notified of procedure completion [ x] Obtained labs. [X] Call light in reach. [X] Bed low and locked. [X] Tray table within reach. Education: Patient/Family informed to notify nurse of any complications including pain, redness, swelling, or leakage post insertion. [facility] 08-18-2022 Note Formatting of this n ote might be different from the original. Pt arrives to room 2406 in IPR for BIV/ICD. IV started in left arm. Labs drawn and sent. 0.9 NS IVF initiated @ [facility]. Pt prep completed. Valuables given to Ranjit. Clothes secured in room. Questions about procedure answered. Family brought to bedside. Bed in low position, side rail up x2 and call light given to pt. Tele monitor shows NSR. Reena Hahn RN [facility] 08-18-2022 History and physical note Images from the original note were not included. Chief Complaint Ischemic cardiomyopathy MARIO Hendrix is a 51 y.o. female with ischemic CM, CAD s/p SD and PCI, HFrEF (30%), DM, HTN, LBBB, COPD and MR. She had an anterior wall SD with LAD stents (05/2021). Her LVEF remains depressed 30% despite GDMT. Endorses NYHA class III symptoms of fatigue, SOB, PND and needs to take frequent breaks with ADLs and 3 pillow orthopnea. Review of EKG noted LBBB (QRS 160ms). She was referred to Dr. Acevedo who recommended ONLINE MARKETING MANAGER-D implant for primary prevention which she presents for today. She reports a few ago noted rapid irregular HR described as pounding out of her chest. She presented to [facility] and underwent stress testing and observation. She states was treated with an ASA but no other pharmacologic medications. The tachycardia resolved on its own. She was told the arrhythmia was atrial fibrillation. She has episodes of tachycardia at night time too. She is highly symptomatic. Patient Active Problem List Diagnosis Back pain, acute Cellulitis and abscess of unspecified site DM w/o complication type II, uncontrolled Essential hypertension, benign Mixed hyperlipidemia Paraspinal abscess Discitis of lumbar region NICM (nonischemic cardiomyopathy) Type 2 diabetes mellitus without complications Past Medical History: Diagnosis Date Diabetes HLD (hyperlipidemia) HTN (hypertension) TB lung, latent 2004 s/p treatment Past Surgical History: Procedure Laterality Date I&D POSTOPERATIVE WOUND 2011 Laterality: N/A; Surgeon: Becky Rodriguez MD, PhD;; Location: [facility] MAIN OR APPENDECTOMY CHOLECYSTECTOMY EXPLORATORY LAPAROTOMY LAMINECTOMY Medications Prior to Admission Medication Sig Dispense Refill Last Dose atorvastatin 80 MG tablet Take 1 tablet by mouth daily. 08/17/2022 carveDILOL 25 MG tablet Take 1 tablet by mouth 2 times daily with meals. 08/18/2022 dapagliflozin 5 MG tablet Take 1 tablet by mouth daily. 08/18/2022 docusate 100 MG PO CAPS take 1 Cap by mouth 2 times daily. 60 Cap 0 Past Week furOSEmide 40 MG tablet Take 1 tablet by mouth daily. 08/18/2022 glipiZIDE 10 MG tablet regular release Take 1 tablet by mouth 2 times daily. 08/18/2022 hydroCODone-acetaminophen 5-325 MG tablet Take 1 tablet by mouth every 4 hours as needed. 08/17/2022 isosorbide dinitrate 30 MG tablet Take 1 tablet by mouth 3 times daily. 08/18/2022 Melatonin 10 MG capsule Take by mouth at bedtime as needed. Past Month Methimazole 10 MG tablet Take 1 tablet by mouth daily. 08/18/2022 Naloxegol Oxalate 25 MG tablet Take 1 tablet by mouth daily. 08/17/[address] capsule Take 1 capsule by mouth daily. 08/18/2022 sacubitril-valsartan (Entresto) 49-51 MG tablet Take 1 tablet by mouth 2 times daily. 08/18/2022 senna 8.6 MG PO TABS take 1 Tab by mouth daily. 40 Tab 0 08/18/2022 tiZANidine 4 MG tablet Take 1 tablet by mouth every 6 hours as needed for Muscle spasms. Past Week Clopidogrel 75 MG tablet Take 1 tablet by mouth daily. 08/15/2022 diphenhydrAMINE 25 MG tablet Take 1 tablet by mouth every 6 hours as needed. More than a month Eliquis 5 MG tablet Take by mouth every 12 hours. 08/15/2022 at 1999 Ibuprofen 200 MG capsule Take by mouth. More than a month lactulose 10 GM/15ML PO SOLN take 45 mL by mouth 3 times daily as needed. Max of 40gm/day 30 mL 0 More than a month ondansetron 4mg/2ml 4 MG/2ML IJ SOLN 2 mL by Intravenous route every 8 hours as needed for Nausea / Vomiting - duplicate. 15 mL 0 More than a month promethazine 25 MG PO TABS take 1 Tab by mouth every 6 hours as needed. 56 Tab 0 More than a month Allergies Allergen Reactions Augmentin [Amoxicillin-Pot Clavulanate] Hot and N/V Social History Socioeconomic History Marital status: Tobacco Use Smoking status: Never Substance and Sexual Activity Alcohol use: No Drug use: No Family History Problem Relation Age of Onset Diabetes Father Myocardial Infarction Father Heart Disease - Other Father Referring MD: Bryan Ruano, [employer]ATING AND [employer]ATING WORKER PCP Margo SAENZ MD: Serafin Acevedo Anticoagulation: Eliquis Has the patient missed any doses of anticoagulation: 2.5 days When was the last dose taken: 08/15/22 evening dose Previous antiarrythmic medications: None Shared decision tool for primary prevention ICD NYHA Class III Patient on guideline directed therapy for greater than 3 months? yes Pito Hendrix has been evaluated and determined to meet [facility] primary prevention ICD implant criteria due to: Ischemic dilated cardiomyopathy with LVEF less than or equal to 35% with NYHA class II or III heart failure and post SD greater than 40 days and post PCI or CABG greater than 3 months. Pito Hendrix participated in a shared decision making encounter today using the evidence based tool A decision aid for ICD and has: Elected to proceed with ICD implant. Prior Cardiac testin03/2022 TTE Review of System Constitutional: Negative for fever, weight loss, weight gain and malaise/fatigue. Skin: Negative. HEENT: Negative. Cardiovascular: Negative for leg swelling. Negative for palpitations, chest pain, dyspnea, orthopnea, claudication, edema and PND. Negative for lightheadedness or syncope. Respiratory: Negative for cough. Is not experiencing shortness of breath currently. Gastrointestinal: Negative for abdominal pain, nausea, vomiting, diarrhea, melena, and constipation. Endocrine: Negative for polyuria, polydipsia, heat or cold intolerance. Genitourinary: Negative for frequency or burning with urination. Neurological: Negative for dizziness and headaches. Psychiatric: Negative for depression, nervous/anxious and substance abuse. Telemetry/EKG: NSR w/LBBB and PVCs BP 122/59 (BP Location: Right arm, BP Position: Lying) Pulse 64 Temp 97.7 F (36.5 C) (Oral) Resp 16 Ht 1.626 m (5' 4 ) Wt 99.3 kg (219 lb) SpO2 97% BMI 37.59 kg/m Smoking Status Never Body mass index is 37.59 kg/m . Physical Exam General appearance - alert, LOC x 3, well appearing, and in no distress Neck - supple, no significant adenopathy, carotids upstroke normal bilaterally without bruits. Chest - lungs clear to auscultation, breath sounds equal and symmetric Heart - regular rate and rhythm, S1 and S2 normal, no murmurs, clicks, gallops or rubs, normal bilateral carotid upstroke without bruits, no JVD Abdomen - soft, nontender, nondistended, no masses or organomegaly, bowel sounds present x 4 quadrants. Extremities - peripheral pulses normal,no pedal edema, no clubbing or cyanosis Skin - normal coloration and turgor, no rashes, no suspicious skin lesions noted Lab Results Component Value Date SODIUM 140 02/17/2012 POTASSIUM 3.3 (L) 02/17/2012 CHLORIDE 106 02/17/2012 CO2 26 02/17/2012 BUN 7 02/17/2012 CREATSERUM 0.53 (L) 02/17/2012 GLUCOSE 97 02/17/2012 Lab Results Component Value Date WBC 4.83 08/18/2022 HGB 13.1 08/18/2022 HCT 40.0 08/18/2022 PLATELET 213 08/18/2022 MCV 95.0 08/18/2022 INR Date Value Ref Range Status 01/11/2012 1.0 0.9 - 1.1 Final 01/09/2012 1.0 0.9 - 1.1 Final 01/07/2012 1.0 0.9 - 1.1 Final Assessment and Plan 1. ICM/HFrEF/NYHA class III in setting of LBBB- proceed with ONLINE MARKETING MANAGER-D for primary prevention. (labs pending) Associated attestation - Serafin Acevedo MD - 08/18/2022 4:10 PM EDT Discussed procedure with pt and re-addressed risk/benefits. Pt is ready to proceed. Consent signed A and O x 3 Skin W and Dry Proceed with planned procedure [facility] 08-18-2022 History and physical note Images from the original note were not included. Chief Complaint Ischemic cardiomyopathy HPI Pito Hendrix is a 51 y.o. female with ischemic CM, CAD s/p SD and PCI, HFrEF (30%), DM, HTN, LBBB, COPD and MR. She had an anterior wall SD with LAD stents (05/2021). Her LVEF remains depressed 30% despite GDMT. Endorses NYHA class III symptoms of fatigue, SOB, PND and needs to take frequent breaks with ADLs and 3 pillow orthopnea. Review of EKG noted LBBB (QRS 160ms). She was referred to Dr. Acevedo who recommended ONLINE MARKETING MANAGER-D implant for primary prevention which she presents for today. She reports a few ago noted rapid irregular HR described as pounding out of her chest. She presented to [facility] and underwent stress testing and observation. She states was treated with an ASA but no other pharmacologic medications. The tachycardia resolved on its own. She was told the arrhythmia was atrial fibrillation. She has episodes of tachycardia at night time too. She is highly symptomatic. Patient Active Problem List Diagnosis Back pain, acute Cellulitis and abscess of unspecified site DM w/o complication type II, uncontrolled Essential hypertension, benign Mixed hyperlipidemia Paraspinal abscess Discitis of lumbar region NICM (nonischemic cardiomyopathy) Type 2 diabetes mellitus without complications Past Medical History: Diagnosis Date Diabetes HLD (hyperlipidemia) HTN (hypertension) TB lung, latent 2005 s/p treatment Past Surgical History: Procedure Laterality Date I&D POSTOPERATIVE WOUND 2011 Laterality: N/A; Surgeon: Becky Rodriguez MD, PhD;; Location: [facility] MAIN OR APPENDECTOMY CHOLECYSTECTOMY EXPLORATORY LAPAROTOMY LAMINECTOMY Medications Prior to Admission Medication Sig Dispense Refill Last Dose atorvastatin 80 MG tablet Take 1 tablet by mouth daily. 08/17/2022 carveDILOL 25 MG tablet Take 1 tablet by mouth 2 times daily with meals. 08/18/2022 dapagliflozin 5 MG tablet Take 1 tablet by mouth daily. 08/18/2022 docusate 100 MG PO CAPS take 1 Cap by mouth 2 times daily. 60 Cap 0 Past Week furOSEmide 40 MG tablet Take 1 tablet by mouth daily. 08/18/2022 glipiZIDE 10 MG tablet regular release Take 1 tablet by mouth 2 times daily. 08/18/2022 hydroCODone-acetaminophen 5-325 MG tablet Take 1 tablet by mouth every 4 hours as needed. 08/17/2022 isosorbide dinitrate 30 MG tablet Take 1 tablet by mouth 3 times daily. 08/18/2022 Melatonin 10 MG capsule Take by mouth at bedtime as needed. Past Month Methimazole 10 MG tablet Take 1 tablet by mouth daily. 08/18/2022 Naloxegol Oxalate 25 MG tablet Take 1 tablet by mouth daily. 08/17/[address] omep[address] capsule Take 1 capsule by mouth daily. 08/18/2022 sacubitril-valsartan (Entresto) 49-51 MG tablet Take 1 tablet by mouth 2 times daily. 08/18/2022 senna 8.6 MG PO TABS take 1 Tab by mouth daily. 40 Tab 0 08/18/2022 tiZANidine 4 MG tablet Take 1 tablet by mouth every 6 hours as needed for Muscle spasms. Past Week Clopidogrel 75 MG tablet Take 1 tablet by mouth daily. 08/15/2022 diphenhydrAMINE 25 MG tablet Take 1 tablet by mouth every 6 hours as needed. More than a month Eliquis 5 MG tablet Take by mouth every 12 hours. 08/15/2022 at 2000 Ibuprofen 200 MG capsule Take by mouth. More than a month lactulose 10 GM/15ML PO SOLN take 45 mL by mouth 3 times daily as needed. Max of 40gm/day 30 mL 0 More than a month ondansetron 4mg/2ml 4 MG/2ML IJ SOLN 2 mL by Intravenous route every 8 hours as needed for Nausea / Vomiting - duplicate. 15 mL 0 More than a month promethazine 25 MG PO TABS take 1 Tab by mouth every 6 hours as needed. 56 Tab 0 More than a month Allergies Allergen Reactions Augmentin [Amoxicillin-Pot Clavulanate] Hot and N/V Social History Socioeconomic History Marital status: Tobacco Use Smoking status: Never Substance and Sexual Activity Alcohol use: No Drug use: No Family History Problem Relation Age of Onset Diabetes Father Myocardial Infarction Father Heart Disease - Other Father Referring MD: Bryan Ruano, HEATING AND VENTILATING WORKER PCP Margo SAENZ MD: Serafin Acevedo Anticoagulation: Eliquis Has the patient missed any doses of anticoagulation: 2.5 days When was the last dose taken: 08/15/22 evening dose Previous antiarrythmic medications: None Shared decision tool for primary prevention ICD NYHA Class III Patient on guideline directed therapy for greater than 3 months? yes Pito Hendrix has been evaluated and determined to meet [facility] primary prevention ICD implant criteria due to: Ischemic dilated cardiomyopathy with LVEF less than or equal to 35% with NYHA class II or III heart failure and post SD greater than 40 days and post PCI or CABG greater than 3 months. Pito Hendrix participated in a shared decision making encounter today using the evidence based tool A decision aid for ICD and has: Elected to proceed with ICD implant. Prior Cardiac testin03/2022 TTE Review of System Constitutional: Negative for fever, weight loss, weight gain and malaise/fatigue. Skin: Negative. HEENT: Negative. Cardiovascular: Negative for leg swelling. Negative for palpitations, chest pain, dyspnea, orthopnea, claudication, edema and PND. Negative for lightheadedness or syncope. Respiratory: Negative for cough. Is not experiencing shortness of breath currently. Gastrointestinal: Negative for abdominal pain, nausea, vomiting, diarrhea, melena, and constipation. Endocrine: Negative for polyuria, polydipsia, heat or cold intolerance. Genitourinary: Negative for frequency or burning with urination. Neurological: Negative for dizziness and headaches. Psychiatric: Negative for depression, nervous/anxious and substance abuse. Telemetry/EKG: NSR w/LBBB and PVCs BP 122/59 (BP Location: Right arm, BP Position: Lying) Pulse 64 Temp 97.7 F (36.5 C) (Oral) Resp 16 Ht 1.626 m (5' 4 ) Wt 99.3 kg (219 lb) SpO2 97% BMI 37.59 kg/m Smoking Status Never Body mass index is 37.59 kg/m . Physical Exam General appearance - alert, LOC x 3, well appearing, and in no distress Neck - supple, no significant adenopathy, carotids upstroke normal bilaterally without bruits. Chest - lungs clear to auscultation, breath sounds equal and symmetric Heart - regular rate and rhythm, S1 and S2 normal, no murmurs, clicks, gallops or rubs, normal bilateral carotid upstroke without bruits, no JVD Abdomen - soft, nontender, nondistended, no masses or organomegaly, bowel sounds present x 4 quadrants. Extremities - peripheral pulses normal,no pedal edema, no clubbing or cyanosis Skin - normal coloration and turgor, no rashes, no suspicious skin lesions noted Lab Results Component Value Date SODIUM 140 02/17/2012 POTASSIUM 3.3 (L) 02/17/2012 CHLORIDE 106 02/17/2012 CO2 26 02/17/2012 BUN 7 02/17/2012 CREATSERUM 0.53 (L) 02/17/2012 GLUCOSE 97 02/17/2012 Lab Results Component Value Date WBC 4.83 08/18/2022 HGB 13.1 08/18/2022 HCT 40.0 08/18/2022 PLATELET 213 08/18/2022 MCV 95.0 08/18/2022 INR Date Value Ref Range Status 01/11/2012 1.0 0.9 - 1.1 Final 01/09/2012 1.0 0.9 - 1.1 Final 01/07/2012 1.0 0.9 - 1.1 Final Assessment and Plan 1. ICM/HFrEF/NYHA class III in setting of LBBB- proceed with ONLINE MARKETING MANAGER-D for primary prevention. (labs pending) Associated attestation - Serafin Acevedo MD - 08/18/2022 4:10 PM EDT Discussed procedure with pt and re-addressed risk/benefits. Pt is ready to proceed. Consent signed A and O x 3 Skin W and Dry Proceed with planned procedure documented in this encounter [facility] 07-17-2021 Note HNO ID: [id number] Author: Jeison Ponce APRN.HEATING AND VENTILATING WORKER Service: ? Author Type: Nurse Practitioner Type: Progress Notes Filed: 07/17/2021 11:49 AM Note Text: Subjective HPI Nontoxic-appearing female presents urgent care chief complaint dizziness and weakness. Duration of symptoms 3 days. Associated symptoms weakness dizziness vomiting. Patient presents today for evaluation of weakness. Patient states she has not had a syncopal episode but when she stands up she gets extremely dizzy. Did have COVID-19 beginning of July. Denies any recent sick contacts. No OTC medications. Denies any melena or blood in vomit. Is on blood thinners. No trauma. Denies any fever cough chest pain shortness of breath pleuritic pain hemoptysis abdominal pain visual changes change in bowel or bladder habits. Past medical history prescription medication use allergies reviewed. .Patient presents with: Fatigue: dizziness and vomiting x 3 days PAST MEDICAL HISTORY Diagnosis Date - Chronic back pain - DM (diabetes mellitus) (HCC) - Hirsutism - Radiculopathy, cervical region - Spastic neurogenic bladder - Thyroid nodule PAST SURGICAL HISTORY Procedure Laterality Date - APPENDECTOMY HX - CHOLECYSTECTOMY - COLONOSCOPY 2014 - ESOPHAGOGASTRODUODENOSCOPY TRANSORAL DIAGNOSTIC 01/09/2019 EGD - HYSTERECTOMY 2002 w/ unilateral oophorectomy - LAMINECTOMY W/O FFD / VERT SEG LUMBAR 2011 - S SPINAL CORD STIMULATOR, 2014 ALLERGIES Augmentin [Amoxicillin-Pot Clavulanate] MEDICATIONS aspirin, enteric coated (ASPIRIN, ENTERIC COATED) 81 mg EC tablet Take 81 mg by mouth once daily. atorvastatin (LIPITOR) 40 mg tablet Take 40 mg by mouth daily at bedtime. carvedilol (COREG) 6.25 mg tablet clopidogrel (PLAVIX) 75 mg tablet cyclobenzaprine (FLEXERIL) 10 mg tablet Take by mouth. furosemide (LASIX) 40 mg tablet Take 40 mg by mouth once daily. glipiZIDE (GLUCOTROL XL) 10mg 24 hr tablet Take 10 mg by mouth twice daily. hydrOXYzine HCl (ATARAX) 25 mg tablet Take 25 mg by mouth three times daily as needed. LANTUS SOLOSTAR U-100 INSULIN 100 unit/mL (3 mL) inject 40 units subcutaneously once daily isosorbide mononitrate ER (IMDUR) 30 mg 24 hr tablet Take 30 mg by mouth once daily. lisinopril (ZESTRIL, PRINIVIL) 20 mg tablet Take 20 mg by mouth once daily. omeprazole (PRILOSEC) 20 mg capsule Take by mouth. potassium chloride ER (K-DUR, KLOR-CON) 20 mEq tablet tiZANidine (ZANAFLEX) 4 mg tablet Take 4 mg by mouth daily at bedtime. zolpidem (AMBIEN) 5 mg tablet Take by mouth. TRAMADOL HCL (TRAMADOL ORAL) Take 50 mg by mouth every 6 hours as needed. FAMILY HISTORY Problem Relation Age of Onset - Prostate Cancer Father - Leukemia Father - Heart Father - Hypertension Father - Breast Cancer Maternal Aunt with mets - Stroke Mother - Hypertension Mother Social History Tobacco Use - Smoking status: Never Smoker - Smokeless tobacco: Never Used Substance Use Topics - Alcohol use: Not on file - Drug use: Not on file BP 90/58 Pulse (!) 55 Temp 36.4 ?C (97.5 ?F) Wt 89.7 kg (197 lb 12.8 oz) SpO2 100% BMI 33.95 kg/m? resp 22 Review of Systems Constitutional: Positive for malaise/fatigue. Negative for chills and fever. HENT: Negative for congestion, ear discharge, ear pain, sinus pain and sore throat. Eyes: Negative for blurred vision, pain, discharge and redness. Respiratory: Negative for cough, hemoptysis, sputum production, shortness of breath, wheezing and stridor. Cardiovascular: Negative for chest pain. Gastrointestinal: Positive for vomiting. Negative for abdominal pain, diarrhea and nausea. Musculoskeletal: Positive for myalgias. Skin: Negative for itching and rash. Neurological: Positive for dizziness and headaches. Objective Physical Exam Constitutional: General: She is not in acute distress. Appearance: She is not diaphoretic. HENT: Head: Normocephalic. Eyes: Conjunctiva/sclera: Conjunctivae normal. Pupils: Pupils are equal, round, and reactive to light. Cardiovascular: Rate and Rhythm: Regular rhythm. Bradycardia present. Heart sounds: Normal heart sounds. Pulmonary: Effort: Pulmonary effort is normal. No tachypnea, accessory muscle usage or respiratory distress. Abdominal: Palpations: Abdomen is soft. Tenderness: There is no abdominal tenderness. Musculoskeletal: Cervical back: Normal range of motion and neck supple. No rigidity or tenderness. Lymphadenopathy: Cervical: No cervical adenopathy. Skin: General: Skin is warm and dry. Neurological: Mental Status: She is alert and oriented to person, place, and time. ASSESSMENT/PLAN: 1. Generalized weakness - ICD9: 780.79, ICD10: R53.1 (primary diagnosis) 2. Bradycardia - ICD9: 427.89, ICD10: R00.1 3. COVID-19 - ICD9: 079.89, ICD10: U07.1 Patient sitting in wheelchair. Normally is able to ambulate without difficulties. Patient presents today due to increased w (more content not included)... [facility] 07-09-2021 Note HNO ID: [id number] Author: Mary Booker APRN.HEATING AND VENTILATING WORKER Service: ? Author Type: Nurse Practitioner Type: Progress Notes Filed: 07/09/2021 9:31 AM Note Text: CC: Patient presents with: Cough: cough, chills, loss of voice and ST x 2 days HPI: Pito Hendrix is a 50 year old female who presents to the office with complaint of respiratory symptoms, cough, nonproductive and sore throat for a few days. Symptoms are worsening Associated symptoms includes loss of voice and chills. Denies nausea, vomiting and diarrhea. Treatments tried include nothing so far. with no relief of symptoms. Sick contacts: unknown. History of asthma, frequent episodes of bronchitis, chronic bronchitis, bronchiectasis or COPD: No Smoker: No Seasonal/environmental allergies: No The ROS is otherwise negative. The patient's pmh, medications, allergies, and past visits are reviewed. PHYSICAL EXAM: BP 112/78 Pulse 73 Temp 36.8 ?C (98.2 ?F) (Tympanic) Resp 18 Wt 93.4 kg (205 lb 12.8 oz) SpO2 99% BMI 35.33 kg/m? General appearance: alert, cooperative, pleasant, in no acute distress Head: Normocephalic Eyes: EOM's intact, conjunctiva pink and moist, no icterus, sclera white, non-injected Oropharynx:moist without lesions, No erythema, exudates or tonsillar hypertrophy. Heart: Negative. RRR without obvious murmur, gallop, or rubs. No ectopy. Lungs: clear to auscultation, without rales or wheeze, good air exchange PAST MEDICAL HISTORY Diagnosis Date - Chronic back pain - DM (diabetes mellitus) (HCC) - Hirsutism - Radiculopathy, cervical region - Spastic neurogenic bladder - Thyroid nodule PAST SURGICAL HISTORY Procedure Laterality Date - APPENDECTOMY HX - CHOLECYSTECTOMY - COLONOSCOPY 2014 - ESOPHAGOGASTRODUODENOSCOPY TRANSORAL DIAGNOSTIC 01/09/2019 EGD - HYSTERECTOMY 2002 w/ unilateral oophorectomy - LAMINECTOMY W/O FFD 06/07 VERT SEG LUMBAR 2011 - S SPINAL CORD STIMULATOR, 2014 ALLERGIES Augmentin [Amoxicillin-Pot Clavulanate] MEDICATIONS aspirin, enteric coated (ASPIRIN, ENTERIC COATED) 81 mg EC tablet Take 81 mg by mouth once daily. atorvastatin (LIPITOR) 40 mg tablet Take 40 mg by mouth daily at bedtime. carvedilol (COREG) 6.25 mg tablet clopidogrel (PLAVIX) 75 mg tablet cyclobenzaprine (FLEXERIL) 10 mg tablet Take by mouth. furosemide (LASIX) 40 mg tablet Take 40 mg by mouth once daily. glipiZIDE (GLUCOTROL XL) 10mg 24 hr tablet Take 10 mg by mouth twice daily. hydrOXYzine HCl (ATARAX) 25 mg tablet Take 25 mg by mouth three times daily as needed. LANTUS SOLOSTAR U-100 INSULIN 100 unit/mL (3 mL) inject 40 units subcutaneously once daily isosorbide mononitrate ER (IMDUR) 30 mg 24 hr tablet Take 30 mg by mouth once daily. lisinopril (ZESTRIL, PRINIVIL) 20 mg tablet Take 20 mg by mouth once daily. omeprazole (PRILOSEC) 20 mg capsule Take by mouth. potassium chloride ER (K-DUR, KLOR-CON) 20 mEq tablet tiZANidine (ZANAFLEX) 4 mg tablet Take 4 mg by mouth daily at bedtime. zolpidem (AMBIEN) 5 mg tablet Take by mouth. TRAMADOL HCL (TRAMADOL ORAL) Take 50 mg by mouth every 6 hours as needed. FAMILY HISTORY Problem Relation Age of Onset - Prostate Cancer Father - Leukemia Father - Heart Father - Hypertension Father - Breast Cancer Maternal Aunt with mets - Stroke Mother - Hypertension Mother Social History Tobacco Use - Smoking status: Never Smoker - Smokeless tobacco: Never Used Substance Use Topics - Alcohol use: Not on file - Drug use: Not on file ASSESSMENT/PLAN: 1. Suspected COVID-19 virus infection - ICD9: V01.79, ICD10: Z20.822 - COVID WITH FLUA+B, ROUTINE Prescription instructions reviewed with patient as applicable. Potential red flag symptoms discussed with the patient. Reviewed appropriate action plan to take if red flag symptoms occur. Patient agreeable to treatment plan. Mary Booker APRN.[facility] Left arm pain- Primary Pain in limb [facility]* Auth/Cert Specialty Diagnoses / Procedures Referred By Lenka guerra Referred To Contact Diagnoses Other cardiomyopathy Other cardiomyopathy [I42.8] Procedures MN INSJ/RPLCMT PERM DFB W/TRNSVNS LDS 1/DUAL CHMBR ICD SCHED INSERT BIV DEVICE AND LEADS ([id number], [id number]) Serafin Acevedo MD [address] [place] [id number] [facility] [address] [place] [id number] Referral ID Status Reason Start Date Expiration Date Visits Re quested Visits Authorized [id number] 1 1 [facility] Summary Purpose Family History No Family History Records FoundNo Family History Records Found Advance Directives No Advanced Directives Records FoundLatest Code Status on File Code Status Date Activated Date Inactivated Comments Full Code 08/18/2022 1:24 PM Code Status History Code Status Date Activated Date Inactivated Comments Full Code 01/01/2012 1:01 AM 01/11/2012 6:36 PM Full Code-Unverified 12/10/2011 11:37 PM 12/17/2011 8:56 PM Reason for Referral Specialty Diagnoses / Procedures Referred By Contac t Referred To Contact Procedures PACEMAKER/ICD INTERROGATION Serafin Acevedo MD [address] [place] [address] Referral ID Status Reason Start Date Expiration Date V isits Requested Visits Authorized [id number] New Request 08/18/2022 09/12/2023 1 1 Specialty Diagnoses / Procedures Referred By Contac t Referred To Contact Procedures ECG Edward Pandey MD [address] [place] [address] Referral ID Status Reason Start Date Expiration Date V isits Requested Visits Authorized [id number] New Request 09/20/2022 10/15/2023 1 1 Additional Source Comments INFORMATION SOURCE (unrecogn ized section and content) DATE CREATED AUTHOR AUTHOR'S ORGANIZ ATION 11/22/2022 [facility] PRN Active and Recently Administ ered Medications (unrecognized section and content) Linked Groups Order Group 1: oxyCODONE (ROXICODONE) tablet 5 mgJump to med 5 mg, Oral, EVERY 4 HOURS NEEDED, Starting on Tue08/18/22 at 1322, Until Tue08/18/22 at 1949, Moderate Pain, Severe Pain
PRN for Moderate Pain. Use for Severe Pain if IV not available for use as initial dose. Higher dose may be administred if lower dose was previously documented as ineffective and did not result in adverse effects (RR<10, decrease in level of consciousness).
Post-op/Post-Proc Or oxyCODONE HCl (ROXICODONE) tablet 10 mgJump to med 10 mg, Oral, EVERY 4 HOURS NEEDED, Starting on Tue08/18/22 at 1322, Until Tue08/18/22 at 1949, Moderate Pain, Severe Pain
PRN for Moderate Pain. Use for Severe Pain if IV not available for use as initial dose. Higher dose may be administred if lower dose was previously documented as ineffective and did not result in adverse effects (RR<10, decrease in level of consciousness)
Post-op/Post-Proc Scheduled Medication Order 09/18/2022 09/19/2022 09/20/2022 Acetaminophen (TYLENOL) tablet 975 mg (COMPLETED) 975 mg, Oral, ONCE, 1 dose, On Tue09/20/22 at 2015, Maximum dose of acetaminophen is 4000 mg from all sources in 24 hours. 1947 (Given - Provid er: Susan Middleton RN) iohexol (OMNIPAQUE) 350 MG/ML injection 1-171 mL (COMPLETED) 1-171 mL, Intravenous, ONCE, 1 dose, On Tue09/20/22 at 1815, Extravasation Risk, CT Procedure 1806 (Given - Radiol ogy - Provider: Yris Rush) oxyCODONE HCl (ROXICODONE) tablet 10 mg (COMPLETED) 10 mg, Oral, ONCE, 1 dose, On Tue09/20/22 at 2130 2134 (Given - Provid er: Susan Middleton RN) PRN Medication Order 09/18/2022 09/19/2022 09/20/2022 Sodium chloride (PF) 0.9 % injection 1-100 mL (COMPLETED) 1-100 mL, Intravenous, ONCE NEEDED, 1 dose, Starting on Tue09/20/22 at 1806, Until Tue09/20/22 at 1806, Flush, CT Procedure 1806 (Given - Provid er: Yris Rush) Care Teams (unrecognized sec tion and content) It Generalist Relationship Specialty Start Date End Date Rikkilast MargoDO [address] [place] [address] PCP - General Family Medicine 07/20/22 Bryan Mitchell CNP [address] [place] [address] Nurse Practitioner - Family 07/19/22 Reason for Visit (unrecogniz ed section and content) FOR RECORDS PERTAINING TO PATIENTS WHO ARE OR HAVE BEEN ENROLLED IN A CHEMICAL DEPENDENCY/SUBSTANCEABUSE PROGRAM, SOME INFORMATION MAY BE OMITTED. This clinical summary was aggregated from multiple sources. Caution should be exercised in using it in the provision of clinical care. This summary normalizes information from multiple sources, and as a consequence, information in this document may materially change the coding, format and clinical context of patient data. In addition, data may be omitted in some cases. CLINICAL DECISIONS SHOULD BE BASED ON THE PRIMARY CLINICAL RECORDS. [employer] [facility]. provides no warranty or guarantee of the accuracy or completeness of information in this document.
== END | disposition home or self-care (01) ==
LOC: LABSPEC 14:06
PROVIDERS: PCP Family Medicine; Referring Provider Surgery; Visit Provider Surgery
DX: E04.1 Nontoxic single thyroid nodule (principal)
CPT/HCPCS: 88108; 88161; 88305; 88313

== ENCOUNTER → 2023-07-15 | Outpatient (CLI) | payer OTHER, MEDICARE, MEDICAID, SELFPAY ==
[2022-02-26 14:11] VITALS: BMI 35.5
--- NOTE | 2023-07-15 08:59 | RAD_ITS ---
STUDY: X-RAY - ESOPHAGUS (BARIUM SWALLOW) WITH FLUOROSCOPY REASON FOR EXAM: Female, 52 years old. DYSPHAGIA TECHNIQUE: 21 view(s) of the esophagus were obtained following swallowing of barium. FLUOROSCOPY TIME (if supplied): (50 seconds) minutes/seconds. 45.07 mGy COMPARISON: None. FINDINGS: There is no demonstrated esophageal foreign body. There is no demonstrated stricture or mucosal abnormality. Normal gastroesophageal junction, without a demonstrated hiatal hernia. The patient ingested a 12 mm tablet of barium without difficulty. Normal visualized aortic arch and descending thoracic aorta. Normal visualized pulmonary parenchyma. Electrodes from a spinal cord stimulator device are seen. Normal visualized osseous structures of the thorax. RAD/Esophagus Single Contrast IMPRESSION: Normal plain film x-ray examination (barium swallow) of the esophagus. Electronically Signed: Mario Alberto Joy MD at 10:00 EST ,
--- OUTSIDE RECORDS SUMMARY | 2023-07-15 09:04 | XMS RPT_ITS | CCD ---
Author Name Unknown Address [address] [place] [address] Organization [facility] Care Team Providers Care Recordak Operator Name Role Phone Roof Bryan HILL Unavailable Margo Tatum DO Primary Care Provider RIKKIYS, MARGO Primary Care Unavailable LISHA MONROY [...] sources) Amoxicillin / Clavulanate Drug Allergy 08-18-2022 [facility] Medications Current Medications Medication Drug Class(es) [...] disease (2 sources) Atherosclerotic heart disease of [place] coronary artery without angina pectoris; Translations: [Atherosclerotic heart disease of [place] coronary artery without angina pectoris] Onset: 05-06-2022 [...] mm[Hg] Lisha Monroy MD, PhD Work Phone: [facility] 09-20-2022 20:05-0400 Heart rate 99 /min Lisha Monroy MD, PhD Work Phone: [facility] 09-20-2022 20:05-0400 Respiratory rate 25 /min Lisha Monroy MD, PhD Work Phone: [facility] 09-20-2022 20:05-0400 SaO2% (BldA) [Mass fraction] 98 % Lisha Monroy MD, PhD Work Phone: [facility] 09-20-2022 20:05-0400 Systolic blood pressure 200 mm[Hg] Lisha Monroy MD, PhD Work Phone: [facility] 09-20-2022 15:04-0400 Body temperature 97.59 [degF] Lisha Monroy MD, PhD Work Phone: [facility] 09-20-2022 14:59-0400 Body height 163.8 cm Lisha Monroy MD, PhD Work Phone: [facility] 08-18-2022 17:30-0400 Diastolic blood pressure 58 mm[Hg] Serafin Acevedo MD Work Phone: [facility] 08-18-2022 17:30-0400 Heart rate 83 /min Serafin Acevedo MD Work Phone: [facility] 08-18-2022 17:30-0400 Respiratory rate 16 /min Serafin Acevedo MD Work Phone: [facility] 08-18-2022 17:30-0400 SaO2% (BldA) [Mass fraction] 96 % Serafin Acevedo MD Work Phone: [facility] 08-18-2022 17:30-0400 Systolic blood pressure 112 mm[Hg] Serafin Acevedo MD Work Phone: [facility] 08-18-2022 08:30-0400 Body height 162.6 cm Serafin Acevedo MD Work Phone: [facility] 08-18-2022 08:30-0400 Body mass index (BMI) [Ratio] 37.59 kg/m2 Serafin Acevedo MD Work Phone: [facility] 08-18-2022 08:30-0400 Body temperature 97.7 [degF] Serafin Acevedo MD Work Phone: [facility] 08-18-2022 08:30-0400 Body weight 99.34 kg Serafin Acevedo MD Work Phone: [facility] Encounters Encounter Date Encounter Type Care Provider Facility Start: 10-04-2022 ambulatory MARGO MALYS Facility:[facility] Start: 09-20-2022 End: 09-20-2022 Emergency department patient visit [facility] Facility:[facility] Start: 09-20-2022 End: 09-20-2022 Emergency department patient visit Lisha Monroy MD, PhD Work Phone: [facility] Emergency Department Start: 09-20-2022 ambulatory LIZBETH ACEVEDO [facility] y:[facility] Start: 08-18-2022 End: 08-18-2022 [facility] Start: 08-18-2022 End: 08-18-2022 Subsequent hospital visit [...] 08-18-2022 CBC AND ELECTRONIC DIFF Madhuri Cruz LIVESTOCK FEEDER-SNACK BAR ATTENDANT Work Phone: Start: 08-18-2022 Complete blood count with white cell differential, automated Madhuri Cruz LIVESTOCK FEEDER-SNACK BAR ATTENDANT Work Phone: Start: 08-18-2022 Creatinine blood Derekssrajesh Cruz LIVESTOCK FEEDER-SNACK BAR ATTENDANT Work Phone: Plan of Treatment Date Care Activity Detail Author Start: 03-25-2026 Tetanus vaccination TETANUS [facility] Start: 09-21-2023 Potassium [Moles/volume] in Serum or Plasma POTASSIUM [facility] Start: 02-04-2023 Influenza vaccination INFLUENZA VACCINE (Season Ended) [facility] Start: 09-20-2022 End: 09-20-2022 Patient encounter procedure 09/20/2022 Office Visit Cardiovascular Medicine Lizbeth Acevedo MD [address] [place] [address] [facility] Start: 02-04-2022 Influenza vaccination INFLUENZA VACCINE (#1) [facility] Start: 12-12-2019 Zoster vaccine hzv live for subcutaneous use ZOSTER (SHINGLES) VACCINE (1 of 2) [facility] Start: 2014 Screening for malignant neoplasm of colon COLORECTAL CANCER SCREENING DISCUSSION [facility] Start: 2009 Lipid panel LIPID SCREENING [facility] Start: 2009 Screening for malignant neoplasm of breast MAMMOGRAM SCREENING DISCUSSION [facility] Start: 1990 Screening for malignant neoplasm of cervix CERVICAL CANCER SCREENING DISCUSSION [facility] Start: 1984 HIV screening HIV SCREENING DISCUSSION [facility] Start: 06-13-1970 COVID-19 VACCINE (#1) COVID-19 VACCINE (#1) [facility] Start: 1969 Hepatitis C screening HEPATITIS C VIRUS SCREENING [facility] Bacteria identified in Blood by Culture [facility] End: 08-18-2022 Interrogation of cardiac pacemaker PACEMAKER/ICD INTERROGATION Cardiac Services Routine One Time for 1 Occurrences starting 08/18/2022 until 08/18/2022 [facility] Work Phone: Payers Date Payer Category Payer Medicaid [facility] [place] [facility] MEDICAID [id number] 2022-Present [address] [place] [address] [id number] 2022 Medicare [facility] RX [facility] MEDICARE RX [id number] 2022-Present [address] [place] [address] [id number] 2022 Medicare [id number] 2011 Unknown [id number] 1969 Unknown [id number] 1969 Unknown [id number] 1969 Unknown [id number] 1969 Unknown [id number] 1969 Unknown [id number] 1969 Unknown [id number] Medicaid [id number] Social History Date Type Detail Facility Start: 12-10-2011 [facility] Start: 08-18-2022 End: 09-20-2022 Alcohol intake Current non-drinker of alcohol (finding) [facility] Start: 1970 Sex Assigned At Not on file [facility] Start: 08-08-2022 End: 09-20-2022 Exposure to SARS-CoV-2 (event) Not sure [facility] Medical Equipment Procedure Code Equipment Code Equipment Origin al Text Equipment Identifier Dates Defibrillator Ca rdiac .99cm 5.37x8.18cm Vigilant X4 Mr - [id number] Start: 08-18-2022 Lead Pacing 86cm 3.9-5.2fr 2.6fr Acuity X4 Quadripolar Kristina - [id number] Start: 08-18-2022 Clinical Notes 07-09-2021 to [...] Medrol, please using instructed. Please follow-up the roof cement and paint maker after discharge. If your symptoms fail to improve or worsen despite treatment, please follow-up promptly with your PCP or if unable to do so you may return to the emergency department. documented in this encounter [facility] 09-20-2022 Physician Emergency department Note ED [...] . Lisha Monroy MD, PhD 09/21/22 0147 [facility] Work Phone: 09-20-2022 Emergency department Note [...] further evaluation. documented in this encounter [facility] 09-20-2022 Emergency department Note PT had [...] patient sent to ER for further evaluation. [facility] 08-18-2022 Note Formatting of this n [...] at time of discharge. [facility] Miscellaneous Notes After Visit Summary [...] 1: Location: forearm, anterior, left Device/Lot Number: [id number] catheter system Gauge/Length: 20 gauge;1 1/4 in length Unsuccessful Insertion Attempts: Unsuccessful Attempt Location/Site: Pain Prevention/Patient Tolerance: Removal: Additional Comments: Lumen 2: Lumen 3: Peripheral IV Present on Admission: (Retired/Read Only) Location: (Retired/Read Only) Device: (Retired/Read Only) Gauge/Length: Keg Raiser/Lot Number: Unsuccessful Insertion Attempts: (Retired/Read Only) Unsuccessful [...] insertion. Pt arrives to room 2406 in [facility] for BIV/ICD. IV started in left arm. Labs drawn and sent. 0.9 NS IVF initiated @ [facility]. Pt prep completed. Valuables given to Ranjit. Clothes secured in room. Questions about procedure answered. Family brought to bedside. Bed in low position, side rail up x2 and call light given to pt. Tele monitor shows NSR. Reena Hahn RN documented in this encounter [facility] 08-18-2022 Hospital Discharge instructions FIDELIA Willis [...] shock. This is not harmful to them. [facility] ([phone]) FIDELIA Willis - [...] Where can you learn more? Go to [email or web address]. FIDELIA Willis - 08/18/2022 9:58 AM EDT [...] body movement. documented in this encounter [facility] 08-18-2022 Note Formatting of this n [...] 1: Location: forearm, anterior, left Device/Lot Number: [id number] catheter system Gauge/Length: 20 gauge;1 1/4 in length Unsuccessful Insertion Attempts: Unsuccessful Attempt Location/Site: Pain Prevention/Patient Tolerance: Removal: Additional Comments: Lumen 2: Lumen 3: Peripheral IV Present on Admission: (Retired/Read Only) Location: (Retired/Read Only) Device: (Retired/Read Only) Gauge/Length: Keg Raiser/Lot Number: Unsuccessful Insertion Attempts: (Retired/Read Only) Unsuccessful [...] pain, redness, swelling, or leakage post insertion. [facility] 08-18-2022 Note Formatting of this n [...] Tele monitor shows NSR. Reena Hahn RN [facility] 08-18-2022 History and physical note Images from the original note were not included. Chief Complaint Ischemic cardiomyopathy MARIO Hendrix is a 51 y.o. female with ischemic CM, CAD s/p ME and PCI, HFrEF (30%), DM, HTN, LBBB, COPD and MR. She had an anterior wall ME with LAD stents (05/2021). Her LVEF remains depressed 30% despite GDMT. Endorses NYHA class III symptoms of fatigue, SOB, PND and needs to take frequent breaks with ADLs and 3 pillow orthopnea. Review of EKG noted LBBB (QRS 160ms). She was referred to Dr. Acevedo who recommended EMT I/85-D implant for primary prevention which she presents for today. She reports a few ago noted rapid irregular HR described as pounding out of her chest. She presented to [facility] and underwent stress testing and [...] - Other Father Referring MD: Bryan Ruano, SNACK BAR ATTENDANT PCP Margo SAENZ MD: Serafin Acevedo Anticoagulation: Eliquis Has the patient missed any doses of anticoagulation: 2.5 days When was the last dose taken: 08/15/22 evening dose Previous antiarrythmic medications: None Shared decision tool for primary prevention ICD NYHA Class III Patient on guideline directed therapy for greater than 3 months? yes Pito Hendrix has been evaluated and determined to meet [facility] primary prevention ICD implant criteria due to: Ischemic dilated cardiomyopathy with LVEF less than or equal to 35% with NYHA class II or III heart failure and post ME greater than 40 days and post PCI [...] III in setting of LBBB- proceed with EMT I/85-D for primary prevention. (labs pending) Associated attestation - Serafin Acevedo MD - 08/18/2022 4:10 PM EDT Discussed procedure with pt and re-addressed risk/benefits. Pt is ready to proceed. Consent signed A and O x 3 Skin W and Dry Proceed with planned procedure [facility] 08-18-2022 History and physical note Images from the original note were not included. Chief Complaint Ischemic cardiomyopathy HPI Pito Hendrix is a 51 y.o. female with ischemic CM, CAD s/p ME and PCI, HFrEF (30%), DM, HTN, LBBB, COPD and MR. She had an anterior wall ME with LAD stents (05/2021). Her LVEF remains depressed 30% despite GDMT. Endorses NYHA class III symptoms of fatigue, SOB, PND and needs to take frequent breaks with ADLs and 3 pillow orthopnea. Review of EKG noted LBBB (QRS 160ms). She was referred to Dr. Acevedo who recommended EMT I/85-D implant for primary prevention which she presents for today. She reports a few ago noted rapid irregular HR described as pounding out of her chest. She presented to [facility] and underwent stress testing and [...] - Other Father Referring MD: Bryan Ruano, SNACK BAR ATTENDANT PCP Margo SAENZ MD: Serafin Acevedo Anticoagulation: Eliquis Has the patient missed any doses of anticoagulation: 2.5 days When was the last dose taken: 08/15/22 evening dose Previous antiarrythmic medications: None Shared decision tool for primary prevention ICD NYHA Class III Patient on guideline directed therapy for greater than 3 months? yes Pito Hendrix has been evaluated and determined to meet [facility] primary prevention ICD implant criteria due to: Ischemic dilated cardiomyopathy with LVEF less than or equal to 35% with NYHA class II or III heart failure and post ME greater than 40 days and post PCI [...] III in setting of LBBB- proceed with EMT I/85-D for primary prevention. (labs pending) Associated attestation - Serafin Acevedo MD - 08/18/2022 4:10 PM EDT Discussed procedure with pt and re-addressed risk/benefits. Pt is ready to proceed. Consent signed A and O x 3 Skin W and Dry Proceed with planned procedure documented in this encounter [facility] 07-17-2021 Note HNO ID: [id number] Author: Jeison Ponce APRN.SNACK BAR ATTENDANT Service: ? Author Type: Nurse Practitioner Type: [...] w (more content not included)... [facility] 07-09-2021 Note HNO ID: [id number] Author: Mary Booker APRN.SNACK BAR ATTENDANT Service: ? Author Type: Nurse Practitioner Type: [...] Patient agreeable to treatment plan. Mary Booker APRN.[facility] Diagnosis Left arm pain- Primary Pain in limb documented [facility] this [facility] Narrative* Auth/Cert Specialty Diagnoses / Procedures Referred By Lenka guerra Referred To Contact Diagnoses Other cardiomyopathy Other cardiomyopathy [I42.8] Procedures LA INSJ/RPLCMT PERM DFB W/TRNSVNS LDS 1/DUAL CHMBR ICD SCHED INSERT BIV DEVICE AND LEADS (60947, [id number]) Serafin Acevedo MD [address] [place] [id number] [facility] [address] [place] [address] Referral ID Status Reason Start Date Expiration Date Visits Re quested Visits Authorized [id number] 1 1 [facility] Summary Purpose Family History No Family [...] Serafin Acevedo MD [address] [place] [address] Referral ID Status Reason Start Date Expiration Date V isits Requested Visits Authorized [id number] New Request 08/18/2022 09/12/2023 1 1 Specialty Diagnoses / Procedures Referred By Contac t Referred To Contact Procedures ECG Edward Pandey MD [address] [place] [address] Referral ID Status Reason Start Date Expiration Date V isits Requested Visits Authorized [id number] New Request 09/20/2022 10/15/2023 1 1 Additional Source Comments INFORMATION SOURCE (unrecogn ized section and content) DATE CREATED AUTHOR AUTHOR'S ORGANIZ ATION 11/22/2022 [facility] PRN Active and Recently Administ ered Medications [...] Care Teams (unrecognized sec tion and content) Recordak Operator Relationship Specialty Start Date End Date Rikkilast MargoDO [address] [place] [address] PCP - General Family Medicine 07/20/22 Bryan Mitchell CNP [address] [place] [address] Nurse Practitioner - Family 07/19/22 [...] BE BASED ON THE PRIMARY CLINICAL RECORDS. [facility]. provides no warranty or guarantee of the accuracy or completeness of information in this document.
== END | disposition home or self-care (01) ==
LOC: RAD 08:54
PROVIDERS: PCP Family Medicine; Referring Provider Otolaryngology; Visit Provider Otolaryngology
DX: R13.14 Dysphagia, pharyngoesophageal phase (principal)
CPT/HCPCS: 74220

== ENCOUNTER 2023-08-02 09:08 | Emergency (ER) | payer OTHER, MEDICARE, MEDICAID, SELFPAY ==
[2022-02-26 14:11] VITALS: BMI 35.5
[2023-08-02] VITALS (8 sets, daily range): BP systolic 139–181; BP diastolic 78–105; PULSE 84–93; RESP 14–25; TEMP 35.3–37.2; O2SAT 95–99; BMI 36.3
--- NOTE | 2023-08-02 09:20 | RAD_ITS ---
STUDY: X-RAY CHEST REASON FOR EXAM: Female, 52 years old. Dyspnea TECHNIQUE: Single AP portable view of the chest. COMPARISON: Comparison is made with prior chest radiograph dated May 18, 2023. FINDINGS: EKG electrodes are seen. The lungs are clear and expanded. There is no demonstrated pleural abnormality. Normal size heart. A left-sided dual-chamber pacemaker is seen. Electrodes from a spinal cord similar device visualized. Normal mediastinum and tony. Normal visualized pulmonary arteries. Normal visualized aortic arch and descending thoracic aorta. Normal visualized thoracic spine. Normal visualized ribs, clavicles, and shoulders. There is no demonstrated abnormality of the visualized soft tissue structures of the upper abdomen. RAD/Chest 1 View (Portable) IMPRESSION: No acute abnormality is seen. Electronically Signed: Mario Alberto Joy MD at 10:31 EST ,
--- NOTE | 2023-08-02 09:20 | EKG12_ITS ---
Test Reason : SOB Blood Pressure : / mmHG Vent. Rate : 080 BPM Atrial Rate : 080 BPM P-R Int : 164 ms QRS Dur : 144 ms QT Int : 438 ms P-R-T Axes : 000 015 003 degrees QTc Int : 505 ms Atrial-sensed ventricular-paced rhythm with occasional Premature ventricular complexes Biventricular pacemaker detected Abnormal ECG Confirmed by SAM GEE, PARAS ([id number]), editorial project manager GUILLERMO LAROSE ([id number]) on 08/08/2023 10:06:56 AM Referred By: Confirmed By:DEJUAN VARGAS MD
--- NOTE | 2023-08-02 09:21 | ED.VIS.DYS ---
HPI History of Present Illness Chief Complaint: Shortness of Breath Detail of Chief Complaint: Shortness of breath Informant: patient Narrative Narrative: Patient presents to the emergency department complaint of shortness of breath. Patient states that she has had a cough for about a week and a half. Cough mostly nonproductive. She denies fevers or chills or sweats. Patient states that she is coughing so hard now that it is made her vomit once yesterday and once today. Denies any diarrhea. Denies abdominal pain. Denies chest pain. Patient currently on Eliquis due to history of A-fib. She has history of COPD and history of CHF. Patient not using an inhaler at home. Patient not on home O2. [facility] Medical History Atherosclerotic heart disease of [place] coronary artery without angina pectoris Atrial fibrillation Benign hypertension Bilateral interstitial pneumonia Cardiomyopathy, ischemic Chest pain Chronic low back pain Chronic nausea Chronic pain COPD (chronic obstructive pulmonary disease) Coronary artery disease COVID-19 virus infection Diabetes Difficult intubation Former smoker HFrEF (heart failure with reduced ejection fraction) Hirsutism History of non-ST elevation myocardial infarction (NSTEMI) (09/08/21) Hyperglycemia due to type 2 diabetes mellitus Hyperlipidemia Hypertension Irregular heart beat Kidney stones Left bundle branch block (LBBB) Myocardial infarct Non-ischemic cardiomyopathy Non-ST elevation (NSTEMI) myocardial infarction Nonobstructive atherosclerosis of coronary artery Obesity Paroxysmal atrial fibrillation Presence of cardiac 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 therapy defibrillator ([employer]-D) Seizures Syncope Thyroid nodule Type 2 diabetes mellitus Vomiting Home Medications hydroxyzine HCl 25 mg tablet 25 - 50 mg PO QHS PRN anxiety 02/24/22 [History Last Taken Unknown] melatonin 10 mg tablet 10 mg PO HS PRN Insomnia 02/24/22 [History Last Taken Unknown] flash glucose scanning reader (Mind Candy Sanam 2 Wirtz) #1 ea 06/09/22 [Rx Last Taken Unknown] BD Ultra-Fine [place] Pen Needle 32 gauge x (pen needle, diabetic) #100 ea 07/29/22 [Rx Last Taken Unknown] diphenhydramine HCl 25 mg tablet 25 mg PO Q4H PRN PRN Allergy Symptoms 08/06/22 [History Last Taken Unknown] hydrocodone-acetaminophen 5-325mg 5mg-325mg 1 tab PO DAILY Check with primary doctor 08/06/22 [History Last Taken 08/06/22 10:00] naloxegol 25 mg tablet (Movantik) 25 mg PO QAM Check with primary doctor 08/06/22 [History Last Taken Unknown] omeprazole magnesium 20 mg tablet,delayed release (Prilosec OTC) 20 mg PO DAILY Check with primary doctor 08/06/22 [History Last Taken Unknown] promethazine 25 mg tablet 25 mg PO TID PRN PRN Nausea And Vomiting 08/06/22 [History Last Taken Unknown] tizanidine 4 mg tablet 4 mg PO QHS 08/06/22 [History Last Taken 08/05/22] calcium carbonate 600 mg calcium (1,500 mg) tablet (Calcium) 600 mg PO BID 10/14/22 [History Last Taken Unknown] acetaminophen 650 mg tablet,extended release 650 mg PO Q12H 10/20/22 [History Last Taken Unknown] dapagliflozin propanediol 10 mg tablet (Farxiga) 10 mg PO DAILY 10/20/22 [History Last Taken Unknown] ibuprofen 200 mg tablet 200 mg PO Q6H PRN 10/20/22 [History Last Taken Unknown] insulin glargine 100 unit/mL (3 mL) subcutaneous pen (Lantus Solostar U-100 Insulin) 23 unit subcut DAILY Check with primary doctor 10/20/22 [History Last Taken Unknown] insulin lispro 100 unit/mL subcutaneous pen (Humalog KwikPen (U-100) Insulin) 12 unit subcut TIDCM Check with primary doctor 10/20/22 [History Last Taken Unknown] sacubitril 97 mg-valsartan 103 mg tablet (Entresto) 1 tab PO BID 10/20/22 [History Last Taken Unknown] flash glucose sensor (FreeStyle Sanam 2 Sensor kit) #2 ea 03/02/23 [Rx Last Taken Unknown] cholecalciferol (vitamin D3) 50 mcg (2,000 unit) capsule 1,000 unit PO DAILY 03/08/23 [History Last Taken Unknown] spironolactone 50 mg tablet 50 mg PO DAILY #90 tabs 03/08/23 [Rx Last Taken Unknown] carvedilol 25 mg tablet 25 mg PO BID Check with primary doctor #180 tabs 03/10/23 [Rx Last Taken Unknown] glipizide 10 mg tablet, extended release 24 hr 10 mg PO BID diabetes #180 tabs 03/14/23 [Rx Last Taken Unknown] methimazole 10 mg tablet 10 mg PO DAILY #90 tabs 03/14/23 [Rx Last Taken Unknown] dulaglutide 0.75 mg/0.5 mL subcutaneous pen injector (Trulicity) 0.75 mg (0.5 mL) subcut QWEEK #2 mL 05/11/23 [Rx Last Taken Unknown] clopidogrel 75 mg tablet (Plavix) 75 mg PO DAILY #90 tabs 05/16/23 [Rx Last Taken Unknown] apixaban 5 mg tablet (Eliquis) See Rx Instructions .Route .COMPLEX #180 tabs 05/31/23 [Rx Last Taken Unknown] atorvastatin 80 mg tablet See Rx Instructions .Route .COMPLEX #360 TABLETS 06/09/23 [Rx Last Taken Unknown] isosorbide mononitrate 30 mg tablet,extended release 24 hr See Rx Instructions .Route .COMPLEX #360 TABLETS 06/09/23 [Rx Last Taken Unknown] furosemide 40 mg tablet See Rx Instructions .Route .COMPLEX #90 TABLETS 07/04/23 [Rx Last Taken Unknown] prednisone 20 mg tablet 20 mg PO BID #10 tabs 08/02/23 [Rx Last Taken Unknown] Allergy/AdvReac Type Severity Reaction Status Date / Time amoxicillin trihydrate AdvReac Vomiting Verified 08/02/23 09:11 [From Augmentin] potassium clavulanate AdvReac Vomiting Verified 08/02/23 09:11 [From Augmentin] Family History Father Myocardial infarction Cancer prostate, leukemia Agent orange exposure Diabetes Sister Diabetes COPD (chronic obstructive pulmonary disease) Surgical History History of appendectomy History of back surgery History of cholecystectomy (1991) History of cholecystectomy History of coronary artery stent placement (05/19/21) History of hysterectomy History of laparoscopy History of left heart catheterization (09/14/21) History of tonsillectomy Status post insertion of nerve stimulator Social History household members: significant other Smoking Status: Current every day smoker tobacco type: cigarettes how long ago did patient quit smokin alcohol intake: current alcohol intake frequency: holidays/special occasions only substance use type: does not use caffeine: Yes ROS ROS ED Review of Systems ROS Unobtainable: other Constitutional Constitutional ED: Reports lethargy; Denies chills, fever(s), sweats or weight loss Eyes Eyes: Denies blurry vision, change in vision or diplopia ENT ENT ED: Denies rhinorrhea or sore throat Cardiovascular Cardiovascular: Reports racing heartbeat; Denies chest pain or orthopnea Respiratory/Chest Respiratory/Chest: Reports cough and dyspnea; Denies dyspnea on exertion, orthopnea or sputum Gastrointestinal Gastrointestinal: Denies abdominal pain, diarrhea, nausea or vomiting Genitourinary Genitourinary ED: Denies dysuria, hematuria or urinary frequency Musculoskeletal Musculoskeletal: Denies arthralgias, back pain, myalgias or neck pain Integumentary Denies abscess, Abrasions or rash Neurologic Neurologic: Denies headache(s) or weakness Psychiatric Psychiatric: Denies anxiety, depression or suicidal thoughts Endocrine Endocrinology: Denies polydipsia, polyphagia or polyuria Hematologic/Lymphatic Hematologic/Lymphatic: Denies easy bleeding, easy bruising or lymphadenopathy Allergic/Immunologic Allergic/Immunologic ED: Denies mouth swelling, tongue swelling or urticaria EXAM Physical Exam Const Vital Signs: 08/02/23 09:09 08/02/23 09:52 08/02/23 09:53 Temperature 95.6 F L 98 F Temperature Source Temporal Oral Pulse Rate 93 90 Respiratory Rate 22 H 20 H Respiratory Effort Short of Breath Respiratory Depth Shallow Respiratory Pattern Tachypnea Blood Pressure 181/105 H 150/80 H Blood Pressure Mean 130 103 Pulse Ox 99 96 Oxygen Delivery Method Room Air Room Air Room Air 08/02/23 10:11 08/02/23 10:11 08/02/23 09:36 Temperature 98 F Temperature Source Oral Pulse Rate 90 86 Respiratory Rate 20 H 25 H Respiratory Effort Respiratory Depth Respiratory Pattern Blood Pressure 149/83 H Blood Pressure Mean 105 Pulse Ox 96 Oxygen Delivery Method Room Air Room Air 08/02/23 10:29 08/02/23 11:54 08/02/23 11:55 Temperature 98.9 F 98.9 F Temperature Source Oral Pulse Rate 84 84 84 Respiratory Rate 14 16 16 Respiratory Effort Respiratory Depth Respiratory Pattern Blood Pressure 170/87 H 139/78 H 139/78 H Blood Pressure Mean 114 98 98 Pulse Ox 95 97 97 Oxygen Delivery Method Room Air Room Air Positive well nourished and well developed General Appearance ED: well developed and NAD HEENT Reports TM's clear and moist mucous membranes normocephalic and atraumatic; Negative for trauma or tenderness Tympanic Membrane ED: Yes TM's clear Eyes PERRL and EOMs intact bilaterally General Eye ED: Negative for pale conjunctiva or scleral icterus Neck no lymphadenopathy, supple and no JVD General: Negative for tenderness Chest Wall inspection of chest normal and palpation of chest normal Chest: Negative for tenderness Resp normal respiratory effort and No clear to auscultation bilaterally Resp Narrative: Patient with some mild tachypnea. No accessory muscle use or retractions. No conversational dyspnea. She has diffuse expiratory wheezes bilaterally. Effort and Inspection: Negative for respiratory distress or pain with movement Auscultation: Negative for rhonchi, wheezes or diminished lung sounds Cardio regular rate, regular rhythm, S1 normal heart sound, S2 normal heart sound and no murmurs Peripheral Pulses: pulses 2+ throughout GI normal to inspection, nondistended, normoactive bowel sounds, soft to palpation, non-tender, non-distended and no masses Back/Spine no CVA tenderness and no thoracic nor lumbar tenderness Extremity normal to inspection General Extremety ED: Negative for edema General Extremity: Negative for edema Neuro oriented x3, CN's II-XII intact bilaterally, no sensory deficits noted and gait normal Sensorium / Orientation: awake, alert, oriented to person, oriented to place and oriented to time Motor Exam: strength 5/5 throughout and strength abnormal Psych mental status grossly normal Skin no rashes or lesions noted and no wounds MDM MDM MDM Narrative Medical decision making narrative: Patient presents with cough and wheezing. IV line established. CBC with differential count 612 with hemoglobin 13 and platelet count of 207. Chemistries unremarkable. BNP was normal at 73. COVID flu and RSV testing was negative. 1 view chest x-ray was unremarkable. EKG obtained on arrival shows sinus rhythm with rate of 80 bpm with atrially sensed ventricularly paced rhythm. Patient was given DuoNeb aerosol and Solu-Medrol with improvement in symptoms. This point she will be discharged to home with diagnosis of asthmatic bronchitis. She will be started on an albuterol inhaler and will give a prescription for prednisone. Advised to follow-up with her primary care physician within next 3 to 5 days. She is to return if increasing shortness of breath or condition should worsen anyway. Lab Data Attestation: I reviewed the patient's lab results. Labs: Laboratory Results - last 24 hr 08/02/23 09:50 WBC 6.2 RBC 4.11 L Hgb 13.0 Hct 38.7 MCV 94.2 MCH 31.6 MCHC 33.6 RDW Std Deviation 48.4 H RDW Coeff of [place] 14.0 Plt Count 207 MPV 9.7 Immature Gran % (Auto) 0.300 Neut % (Auto) 64.8 Lymph % (Auto) 28.1 [place] % (Auto) 5.7 Eos % (Auto) 0.8 Baso % (Auto) 0.3 Absolute Neuts (auto) 4.0 Absolute Lymphs (auto) 1.73 Nucleated RBC % 0 Sodium 138 Potassium 3.4 L Chloride 109 H Carbon Dioxide 23.0 Anion Gap 6 BUN 22 H Creatinine 0.94 Estim Creat Clear Calc 77.81 Est GFR (MDRD) Af Amer 80 Est GFR (MDRD) Non-Af 66 BUN/Creatinine Ratio 23.4 H Glucose 209 H Calcium 9.3 B-Natriuretic Peptide 73.6 Radiography Diagnostic Testing: Clinical Impression(s) from Imaging Studies Chest X-Ray 08/02/23 09:20 IMPRESSION: No acute abnormality is seen. Electronically Signed: Mario Alberto Joy MD at 10:31 EST , 1 view chest x-ray obtained interpreted by myself as no evidence of infiltrate or pneumothorax or acute disease process. Radiology in agreement. EKG Initial EKG: Attestation: I personally reviewed and interpreted this EKG as follows: Comments: Biventricular pacemaker detected with atrial sensed ventricular paced rhythm with occasional PVCs Discharge Plan Triage Chief Complaint: Shortness of Breath ED Provider: Allen Meraz Dx/Rx/DC Orders Clinical Impression: Asthmatic bronchitis Instructions: ED Bronchitis with Wheezing (Adult) Prescriptions: New prednisone 20 mg tablet 20 mg PO BID Qty: 10 0RF No Action insulin glargine [Lantus Solostar U-100 Insulin] 100 unit/mL (3 mL) insulin pen 23 unit subcut DAILY melatonin 10 mg tablet 10 mg PO HS PRN (Reason: Insomnia) hydroxyzine HCl 25 mg tablet 25 - 50 mg PO QHS PRN (Reason: anxiety) spironolactone 50 mg tablet 50 mg PO DAILY Qty: 90 12RF (DME) FreeStyle Sanam 2 Wirtz Misc See Rx Instructions .Route Qty: 1 0RF Rx Instructions: As directed acetaminophen 650 mg tablet extended release 650 mg PO Q12H Farxiga 10 mg tablet 10 mg PO DAILY Entresto 97-103 mg tablet 1 tab PO BID ibuprofen 200 mg tablet 200 mg PO Q6H PRN Trulicity 0.75 mg/0.5 mL pen injector 0.75 mg subcut QWEEK Qty: 2 3RF tizanidine 4 mg tablet 4 mg PO QHS Patient Comments: take 1 tablet by mouth every evening diphenhydramine HCl 25 mg Tablet 25 mg PO Q4H PRN PRN (Reason: Allergy Symptoms) promethazine 25 mg tablet 25 mg PO TID PRN PRN (Reason: Nausea And Vomiting) Patient Comments: take 1 tablet by mouth three times a day if needed for nausea and vomiting hydrocodone-acetaminophen 5-325 mg tablet 1 tab PO DAILY omeprazole magnesium [Prilosec OTC] 20 mg tablet,delayed release (DR/EC) 20 mg PO DAILY Movantik 25 mg tablet 25 mg PO QAM Rx Instructions: must be taken on empty stomach; no food 1 hr after or 2-3 hrs before dose insulin lispro [Humalog KwikPen Insulin] 100 unit/mL insulin pen 12 unit subcut TIDCM (DME) pen needle, diabetic [BD Ultra-Fine [place] Pen Needle] 32 gauge x 5/32 needle See Rx Instructions .Route Qty: 100 5RF Rx Instructions: 4x/day calcium carbonate [Calcium 600] 600 mg calcium (1,500 mg) tablet 600 mg PO BID (DME) FreeStyle Sanam 2 Sensor Kit See Rx Instructions .Route Qty: 2 5RF Rx Instructions: 1 sensor q 14 days cholecalciferol (vitamin D3) 50 mcg (2,000 unit) capsule 1,000 unit PO DAILY carvedilol 25 mg tablet 25 mg PO BID Qty: 180 3RF Rx Instructions: must administer with a meal/food glipizide 10 mg tablet extended release 24hr 10 mg PO BID Qty: 180 1RF methimazole 10 mg tablet 10 mg PO DAILY Qty: 90 1RF clopidogrel [Plavix] 75 mg tablet 75 mg PO DAILY Qty: 90 3RF Eliquis 5 mg tablet See Rx Instructions .ROUTE .COMPLEX Qty: 180 3RF Dose Instruction: take 1 tablet by mouth twice a day Rx Instructions: take 1 tablet by mouth twice a day atorvastatin 80 mg tablet See Rx Instructions .ROUTE .COMPLEX Qty: 360 0RF Dose Instruction: take 1 tablet by mouth at bedtime Rx Instructions: take 1 tablet by mouth at bedtime isosorbide mononitrate 30 mg tablet extended release 24 hr See Rx Instructions .ROUTE .COMPLEX Qty: 360 0RF Dose Instruction: take 1 tablet by mouth once daily Rx Instructions: take 1 tablet by mouth once daily furosemide 40 mg tablet See Rx Instructions .ROUTE .COMPLEX Qty: 90 3RF Dose Instruction: take 1 tablet by mouth once daily Rx Instructions: take 1 tablet by mouth once daily Stand Alone Forms: Work / School Excuse Primary Care Provider: Margo Tatum Referrals: Margo Tatum DO [Primary Care Provider] - 3-5 Days Disposition Disposition: Home, Self Care Discharge Date/Time: 08/02/23 11:56
[2023-08-02] MEDS: Ipratropium/Albuterol Sulfate 3 ML AMPUL.NEB INHALATION (09:33)
[2023-08-02] MEDS: Albuterol 2.5 MG/3 ML VIAL.NEB. INHALATION ×3 (09:33)
[2023-08-02] MEDS: Ondansetron 4 MG/2 ML Vial IV (09:48)
[2023-08-02] MEDS: MethylPREDNISolone 125 MG/2 ML Vial IV (09:50)
[2023-08-02 09:58] LABS: Absolute Lymphocyte Count 1.73 X10^3/uL (0.83-4.51); Basophil# 0.02 X10^3/uL; Basophil% 0.3 % (0-1); Eosinophil# 0.05 X10^3/uL; Eosinophils% 0.8 % (0-5); Hematocrit 38.7 % (37-47); Lymphocyte # 1.73 X10^3/ul (0.83-4.51); Lymphocyte % 28.1 % (19-41); Mean Corp Hgb Conc 33.6 g/dL (32-36); Mean Corpuscular Hgb 31.6 pg (27.0-32.0); Mean Corpuscular Volume 94.2 fL (81-99); Mean Platelet Vol. 9.7 fl (6.2-12.0); Monocyte# 0.35 X10^3/uL; Monocyte% 5.7 % (0-10); NRBC Flagged by Analyzer 0 % (0-5); Neutrophil # 3.99 X10^3/uL (2.7-7.7); Neutrophil % 64.8 % (47-70); Platelet Count 207 K/mm3 (150-450); RBC Distribution Width SD 48.4 fl (35.1-43.9); Red Blood Count 4.11 M/mm3 (4.2-5.4); White Blood Count 6.2 K/mm3 (4.4-11.0)
[2023-08-02 10:10] LABS: Anion Gap 6 (5-15); BUN 22 mg/dL (7-18); BUN/Creat Ratio 23.4 RATIO (10-20); Calcium,Total 9.3 mg/dL (8.5-10.1); Chloride 109 mmol/L (98-107); Creatinine, Serum 0.94 mg/dL (0.55-1.02); EST Glomerular Filtration Rate 66 mL/min (>60); Est Glom Filt Rate - Afr Amer 80 mL/min (>60); Estimated Creatinine Clearance 77.81 ml/min; Glucose 209 mg/dL (74-106); Potassium 3.4 mmol/L (3.5-5.1); Sodium Level 138 mmol/L (136-145)
[2023-08-02 10:22] LABS: BNP,B-Type NATRIURETIC PEPTIDE 73.6 pg/mL (0-100)
[2023-08-02] MEDS: Albuterol Sulfate 8 gm Inhaler (60 puffs) 2 PUFF INHALATION (11:49)
== END 2023-08-02 11:56 | disposition home or self-care (01) ==
PROVIDERS: Emergency Provider Emergency Medicine; PCP Family Medicine; Visit Provider Emergency Medicine
DX: J45.909 Unspecified asthma, uncomplicated (principal); I11.0 Hypertensive heart disease with heart failure; I50.22 Chronic systolic (congestive) heart failure; I48.0 Paroxysmal atrial fibrillation; E11.9 Type 2 diabetes mellitus without complications; Z79.4 Long term (current) use of insulin; F17.210 Nicotine dependence, cigarettes, uncomplicated; I25.10 Atherosclerotic heart disease of native coronary artery without angina pectoris; I25.2 Old myocardial infarction; Z95.5 Presence of coronary angioplasty implant and graft; Z95.810 Presence of automatic (implantable) cardiac defibrillator; Z79.01 Long term (current) use of anticoagulants; Z79.02 Long term (current) use of antithrombotics/antiplatelets; Z79.84 Long term (current) use of oral hypoglycemic drugs; Z79.85 Long-term (current) use of injectable non-insulin antidiabetic drugs; Z79.899 Other long term (current) drug therapy; Z86.16 Personal history of COVID-19
CPT/HCPCS: 71045; 80048; 83880; 85025; 87631; 93005; 94640; 96374; 96375; 99284; A4216; J2405

== ENCOUNTER → 2023-08-11 | Outpatient (CLI) | payer OTHER, MEDICARE, MEDICAID, SELFPAY ==
[2022-02-26 14:11] VITALS: BMI 35.5
--- OUTSIDE RECORDS SUMMARY | 2023-08-11 13:08 | XMS RPT_ITS | CCD ---
Author Name Unknown Address [address] [place] [address] Organization [facility] Care Team Providers Care Merchandise Displayer Name Role Phone Roof Bryan HILL Unavailable [...] sources) Amoxicillin / Clavulanate Drug Allergy 08-18-2022 [facility] Medications Current Medications Medication Drug Class(es) Dates [...] disease (2 sources) Atherosclerotic heart disease of [place] coronary artery without angina pectoris; Translations: [Atherosclerotic heart disease of [place] coronary artery without angina pectoris] Onset: 05-06-2022 [...] mm[Hg] Lisha Monroy MD, PhD Work Phone: [facility] 09-20-2022 20:05-0400 Heart rate 99 /min Lisha Monroy MD, PhD Work Phone: [facility] 09-20-2022 20:05-0400 Respiratory rate 25 /min Lisha Monroy MD, PhD Work Phone: [facility] 09-20-2022 20:05-0400 SaO2% (BldA) [Mass fraction] 98 % Lisha Monroy MD, PhD Work Phone: [facility] 09-20-2022 20:05-0400 Systolic blood pressure 200 mm[Hg] Lisha Monroy MD, PhD Work Phone: [facility] 09-20-2022 15:04-0400 Body temperature 97.59 [degF] Lisha Monroy MD, PhD Work Phone: [facility] 09-20-2022 14:59-0400 Body height 163.8 cm Lisha Monroy MD, PhD Work Phone: [facility] 08-18-2022 17:30-0400 Diastolic blood pressure 58 mm[Hg] Serafin Acevedo MD Work Phone: [facility] 08-18-2022 17:30-0400 Heart rate 83 /min Serafin Acevedo MD Work Phone: [facility] 08-18-2022 17:30-0400 Respiratory rate 16 /min Serafin Acevedo MD Work Phone: [facility] 08-18-2022 17:30-0400 SaO2% (BldA) [Mass fraction] 96 % Serafin Acevedo MD Work Phone: [facility] 08-18-2022 17:30-0400 Systolic blood pressure 112 mm[Hg] Serafin Acevedo MD Work Phone: [facility] 08-18-2022 08:30-0400 Body height 162.6 cm Serafin Acevedo MD Work Phone: [facility] 08-18-2022 08:30-0400 Body mass index (BMI) [Ratio] 37.59 kg/m2 Serafin Acevedo MD Work Phone: [facility] 08-18-2022 08:30-0400 Body temperature 97.7 [degF] Serafin Acevedo MD Work Phone: [facility] 08-18-2022 08:30-0400 Body weight 99.34 kg Serafin Acevedo MD Work Phone: [facility] Encounters Encounter Date Encounter Type Care Provider Facility Start: 10-04-2022 ambulatory MARGO MALYS Facility:[facility] Start: 09-20-2022 End: 09-20-2022 Emergency department patient visit [facility] Facility:[facility] Start: 09-20-2022 End: 09-20-2022 Emergency department patient visit Lisha Monroy MD, PhD Work Phone: Emergency Department Start: 09-20-2022 ambulatory LIZBETH ACEVEDO [facility] y:[facility] Start: 08-18-2022 End: 08-18-2022 [facility] Start: 08-18-2022 End: 08-18-2022 Subsequent hospital [...] 08-18-2022 CBC AND ELECTRONIC DIFF Madhuri Cruz HEALTH AND FITNESS PROFESSOR-BLADDER CHANGER Work Phone: Start: 08-18-2022 Complete blood count with white cell differential, automated Madhuri Cruz HEALTH AND FITNESS PROFESSOR-BLADDER CHANGER Work Phone: Start: 08-18-2022 Creatinine blood Derekssrajesh Cruz HEALTH AND FITNESS PROFESSOR-BLADDER CHANGER Work Phone: Plan of Treatment Date Care Activity Detail Author Start: 03-25-2026 Tetanus vaccination TETANUS [facility] Start: 09-21-2023 Potassium [Moles/volume] in Serum or Plasma POTASSIUM [facility] Start: 02-04-2023 Influenza vaccination INFLUENZA VACCINE (Season Ended) [facility] Start: 09-20-2022 End: 09-20-2022 Patient encounter procedure 09/20/2022 Office Visit Cardiovascular Medicine Lizbeth Acevedo MD [address] [place] [address] [facility] Start: 02-04-2022 Influenza vaccination INFLUENZA VACCINE (#1) [facility] Start: 12-12-2019 Zoster vaccine hzv live for subcutaneous use ZOSTER (SHINGLES) VACCINE (1 of 2) [facility] Start: 2014 Screening for malignant neoplasm of colon COLORECTAL CANCER SCREENING DISCUSSION [facility] Start: 2009 Lipid panel LIPID SCREENING [facility] Start: 2009 Screening for malignant neoplasm of breast MAMMOGRAM SCREENING DISCUSSION [facility] Start: 1990 Screening for malignant neoplasm of cervix CERVICAL CANCER SCREENING DISCUSSION [facility] Start: 1984 HIV screening HIV SCREENING DISCUSSION [facility] Start: 06-13-1970 COVID-19 VACCINE (#1) COVID-19 VACCINE (#1) [facility] Start: 1969 Hepatitis C screening HEPATITIS C VIRUS SCREENING [facility] Bacteria identified in Blood by Culture [facility] End: 08-18-2022 Interrogation of cardiac pacemaker PACEMAKER/ICD INTERROGATION Cardiac Services Routine One Time for 1 Occurrences starting 08/18/2022 until 08/18/2022 [facility] Work Phone: Payers Date Payer Category Payer [facility] MEDICAID [id number] 2022-Present [address] [place] [address] [id number] 2022 Medicare [facility] RX [id number] 2022-Present [address] [place] [address] [id number] 2022 Medicare [id number] 2011 Unknown [id number] 1969 Unknown [id number] 1969 Unknown [id number] 1969 Unknown [id number] 1969 Unknown [id number] 1969 Unknown [id number] 1969 Unknown [id number] Medicaid [id number] Social History Date Type Detail Facility Start: 12-10-2011 [facility] Start: 08-18-2022 End: 09-20-2022 Alcohol intake Current non-drinker of alcohol (finding) [facility] Start: 1970 Sex Assigned At Not on file [facility] Start: 08-08-2022 End: 09-20-2022 Exposure to SARS-CoV-2 (event) Not sure [facility] Medical Equipment Procedure Code Equipment Code Equipment Origin al Text Equipment Identifier Dates Defibrillator Ca rdiac .99cm 5.37x8.18cm Vigilant X4 Mr - [id number] Start: 08-18-2022 Lead Pacing 86cm 3.9-5.2fr 2.6fr Acuity X4 Quadripolar Kristina - [id number] Start: 08-18-2022 Clinical Notes 07-09-2021 to [...] Medrol, please using instructed. Please follow-up the supervisor painting department after discharge. If your symptoms fail to improve or worsen despite treatment, please follow-up promptly with your PCP or if unable to do so you may return to the emergency department. documented in this encounter [facility] 09-20-2022 Physician Emergency department Note ED Attending [...] . Lisha Monroy MD, PhD 09/21/22 0147 [facility] Work Phone: 09-20-2022 Emergency department Note ED [...] further evaluation. documented in this encounter [facility] 09-20-2022 Emergency department Note PT had [...] patient sent to ER for further evaluation. [facility] 08-18-2022 Note Formatting of this n ote [...] at time of discharge. [facility] Miscellaneous Notes After Visit Summary reviewed [...] 1: Location: forearm, anterior, left Device/Lot Number: [id number] catheter system Gauge/Length: 20 gauge;1 1/4 in length Unsuccessful Insertion Attempts: Unsuccessful Attempt Location/Site: Pain Prevention/Patient Tolerance: Removal: Additional Comments: Lumen 2: Lumen 3: Peripheral IV Present on Admission: (Retired/Read Only) Location: (Retired/Read Only) Device: (Retired/Read Only) Gauge/Length: Jitney Driver/Lot Number: Unsuccessful Insertion Attempts: (Retired/Read Only) Unsuccessful [...] Reena Hahn RN documented in this encounter [facility] 08-18-2022 Hospital Discharge instructions FIDELIA Willis - [...] shock. This is not harmful to them. [facility] Device Clinic ([phone]) FIDELIA Willis - 08/18/2022 [...] Where can you learn more? Go to [email or web address]. FIDELIA Willis - 08/18/2022 9:58 AM EDT [...] body movement. documented in this encounter [facility] 08-18-2022 Note Formatting of this n [...] 1: Location: forearm, anterior, left Device/Lot Number: [id number] catheter system Gauge/Length: 20 gauge;1 1/4 in length Unsuccessful Insertion Attempts: Unsuccessful Attempt Location/Site: Pain Prevention/Patient Tolerance: Removal: Additional Comments: Lumen 2: Lumen 3: Peripheral IV Present on Admission: (Retired/Read Only) Location: (Retired/Read Only) Device: (Retired/Read Only) Gauge/Length: Jitney Driver/Lot Number: Unsuccessful Insertion Attempts: (Retired/Read Only) Unsuccessful [...] pain, redness, swelling, or leakage post insertion. [facility] 08-18-2022 Note Formatting of this n ote [...] Tele monitor shows NSR. Reena Hahn RN [facility] 08-18-2022 History and physical note Images from the original note were not included. Chief Complaint Ischemic cardiomyopathy MARIO Hendrix is a 51 y.o. female with ischemic CM, CAD s/p MD and PCI, HFrEF (30%), DM, HTN, LBBB, COPD and MR. She had an anterior wall MD with LAD stents (05/2021). Her LVEF remains depressed 30% despite GDMT. Endorses NYHA class III symptoms of fatigue, SOB, PND and needs to take frequent breaks with ADLs and 3 pillow orthopnea. Review of EKG noted LBBB (QRS 160ms). She was referred to Dr. Acevedo who recommended BUILDING CONSTRUCTION PROFESSOR-D implant for primary prevention which she presents for today. She reports a few ago noted rapid irregular HR described as pounding out of her chest. She presented to [facility] and underwent stress testing and observation. She [...] - Other Father Referring MD: Bryan Ruano, BLADDER CHANGER PCP Margo SAENZ MD: Serafin Acevedo Anticoagulation: Eliquis Has the patient missed any doses of anticoagulation: 2.5 days When was the last dose taken: 08/15/22 evening dose Previous antiarrythmic medications: None Shared decision tool for primary prevention ICD NYHA Class III Patient on guideline directed therapy for greater than 3 months? yes Pito Hendrix has been evaluated and determined to meet [facility] primary prevention ICD implant criteria due to: Ischemic dilated cardiomyopathy with LVEF less than or equal to 35% with NYHA class II or III heart failure and post MD greater than 40 days and post PCI [...] III in setting of LBBB- proceed with BUILDING CONSTRUCTION PROFESSOR-D for primary prevention. (labs pending) Associated attestation - Serafin Acevedo MD - 08/18/2022 4:10 PM EDT Discussed procedure with pt and re-addressed risk/benefits. Pt is ready to proceed. Consent signed A and O x 3 Skin W and Dry Proceed with planned procedure [facility] 08-18-2022 History and physical note Images from the original note were not included. Chief Complaint Ischemic cardiomyopathy HPI Pito Hendrix is a 51 y.o. female with ischemic CM, CAD s/p MD and PCI, HFrEF (30%), DM, HTN, LBBB, COPD and MR. She had an anterior wall MD with LAD stents (05/2021). Her LVEF remains depressed 30% despite GDMT. Endorses NYHA class III symptoms of fatigue, SOB, PND and needs to take frequent breaks with ADLs and 3 pillow orthopnea. Review of EKG noted LBBB (QRS 160ms). She was referred to Dr. Acevedo who recommended BUILDING CONSTRUCTION PROFESSOR-D implant for primary prevention which she presents for today. She reports a few ago noted rapid irregular HR described as pounding out of her chest. She presented to [facility] and underwent stress testing and observation. She [...] - Other Father Referring MD: Bryan Ruano, BLADDER CHANGER PCP Margo SAENZ MD: Serafin Acevedo Anticoagulation: Eliquis Has the patient missed any doses of anticoagulation: 2.5 days When was the last dose taken: 08/15/22 evening dose Previous antiarrythmic medications: None Shared decision tool for primary prevention ICD NYHA Class III Patient on guideline directed therapy for greater than 3 months? yes Pito Hendrix has been evaluated and determined to meet [facility] primary prevention ICD implant criteria due to: Ischemic dilated cardiomyopathy with LVEF less than or equal to 35% with NYHA class II or III heart failure and post MD greater than 40 days and post PCI [...] III in setting of LBBB- proceed with BUILDING CONSTRUCTION PROFESSOR-D for primary prevention. (labs pending) Associated attestation - Serafin Acevedo MD - 08/18/2022 4:10 PM EDT Discussed procedure with pt and re-addressed risk/benefits. Pt is ready to proceed. Consent signed A and O x 3 Skin W and Dry Proceed with planned procedure documented in this encounter [facility] 07-17-2021 Note HNO ID: [id number] Author: Jeison Ponce APRN.BLADDER CHANGER Service: ? Author Type: Nurse Practitioner Type: [...] to increased w (more content not included)... [facility] 07-09-2021 Note HNO ID: [id number] Author: Mary Booker APRN.BLADDER CHANGER Service: ? Author Type: Nurse Practitioner Type: [...] Patient agreeable to treatment plan. Mary Booker APRN.[facility] documented in this encounter [facility] Diagnosis Left arm pain- Primary Pain in limb documented in this encounter [facility] Narrative* Auth/Cert Specialty Diagnoses / Procedures Referred By Lenka guerra Referred To Contact Diagnoses Other cardiomyopathy Other cardiomyopathy [I42.8] Procedures [place] INSJ/RPLCMT PERM DFB W/TRNSVNS LDS 1/DUAL CHMBR ICD SCHED INSERT BIV DEVICE AND LEADS ([id number], [id number]) Serafin Acevedo MD [address] [place] [id number] [facility] [address] [place] [id number] Referral ID Status Reason Start Date Expiration Date Visits Re quested Visits Authorized [id number] 1 1 [facility] Summary Purpose Family History No Family History [...] Serafin Acevedo MD [address] [place] [address] Referral ID Status Reason Start Date Expiration Date V isits Requested Visits Authorized [id number] New Request 08/18/2022 09/12/2023 1 1 Specialty Diagnoses / Procedures Referred By Contac t Referred To Contact Procedures ECG Edward Pandey MD [address] [place] [address] Referral ID Status Reason Start Date Expiration Date V isits Requested Visits Authorized [id number] New Request 09/20/2022 10/15/2023 1 1 Additional Source Comments INFORMATION SOURCE (unrecogn ized section and content) DATE CREATED AUTHOR AUTHOR'S ORGANIZ ATION 11/22/2022 [facility] PRN Active and Recently Administ ered [...] Care Teams (unrecognized sec tion and content) Merchandise Displayer Relationship Specialty Start Date End Date Rikkilast MargoDO [address] [facility] [place] [address] PCP - General Family Medicine 07/20/22 Bryan Mitchell CNP [address] [place] [address] Nurse Practitioner - Family 07/19/22 [...] BE BASED ON THE PRIMARY CLINICAL RECORDS. [facility]. provides no warranty or guarantee of the accuracy or completeness of information in this document.
[2023-08-11 13:31] LABS: Vitamin D,25 Hydroxy 20.5 ng/mL
[2023-08-11 13:44] LABS: Cholesterol 143 mg/dL (200); Free T3 3.5 pg/mL (2.18-3.98); High Density Lipoprotein 51 mg/dL; Thyroid Stim Hormone (TSH) 0.26 uIU/mL (0.358-3.74); Triglycerides 221 mg/dL; Very Low Density Lipoprotein 44 mg/dL (5-40)
== END | disposition home or self-care (01) ==
LOC: LAB 12:24
PROVIDERS: PCP Family Medicine; Referring Provider Nurse Practitioner Family; Visit Provider Nurse Practitioner Family
DX: E05.90 Thyrotoxicosis, unspecified without thyrotoxic crisis or storm (principal); E11.9 Type 2 diabetes mellitus without complications
CPT/HCPCS: 36415; 80061; 82306; 84439; 84443; 84481

== ENCOUNTER 2023-08-26 18:19 | Inpatient (IN) | payer OTHER, MEDICARE, MEDICAID, SELFPAY ==
[2022-02-26 14:11] VITALS: BMI 35.5
[2023-08-26 18:21] VITALS: BP 141/83; PULSE 110; RESP 22; TEMP 36.2; O2SAT 100; BMI 35.6
--- NOTE | 2023-08-26 19:46 | CT_ITS ---
STUDY: CT ABDOMEN AND PELVIS WITH CONTRAST REASON FOR EXAM: Female, 52 years old. hematuria RADIATION DOSAGE (If Supplied By Facility): CTDIvol = ( 17.41 ) mGy, DLP = ( 1140.80 ) mGycm TECHNIQUE: IV 100mL Isovue-370 was administered. Transaxial images were obtained from the dome of the diaphragm to the symphysis pubis in the portal venous phase. Multiplanar coronal and sagittal images were reformatted. Individualized Dose Optimization Techniques Were Used For This CT. COMPARISON: 10/07/2022 FINDINGS: LOWER CHEST: Lung bases are clear. No cardiomegaly or pericardial effusion. LIVER: The liver is normal in size, shape, and attenuation. No focal mass. GALLBLADDER AND BILIARY TREE: Cholecystectomy. No intra- or extrahepatic biliary ductal dilation. PANCREAS: No focal cystic or solid mass. SPLEEN: Normal size without focal cystic or solid mass. ADRENAL GLANDS: No nodules. KIDNEYS AND URETERS: Normal renal size and position. There is a 7 mm and 5 mm stone in the lower pole of the right kidney, unchanged from prior. No additional urinary calculi. Kidneys enhance symmetrically. No hydronephrosis. PERITONEUM: No ascites or free air. No other fluid collection. BOWEL: The stomach is unremarkable. Normal caliber small bowel. There is no obstruction. No colonic wall thickening or inflammation. Diverticulosis coli. No evidence of diverticulitis. Appendectomy. LYMPH NODES: No enlarged mesenteric or retroperitoneal lymph nodes. VESSELS: Aorta is non-dilated. URINARY BLADDER: Thick-walled and hyperemic, decompressed by Gaspar catheter. There may be asymmetric wall thickening along the right posterolateral aspect of the bladder. Mild perivesicular fat stranding. REPRODUCTIVE ORGANS: No pelvic masses. Hysterectomy. ABDOMINAL WALL: No discrete abdominal or pelvic wall hernia. BONES: No lytic or blastic abnormality. CT/Abdomen/Pelvis W IV Cont ONLY IMPRESSION: * There is diffuse bladder wall thickening and pericecal fat stranding which may represent cystitis, with indwelling Gaspar catheter. There may be asymmetric thickening of the right posterolateral bladder wall. Consider cystoscopy for further evaluation and to exclude underlying malignancy. * Nonobstructive calculi in the lower pole of the right kidney are unchanged. * Unchanged nonobstructive calculi, lower pole right kidney. * Cholecystectomy, appendectomy and hysterectomy. Electronically Signed: Dean Lovell MD at 21:47 EDT ,
--- NOTE | 2023-08-26 19:51 | EDS_ITS ---
HPI HPI - Female History of Present Illness Chief Complaint: Complaint Informant: patient Narrative Narrative: Patient with hematuria all day today. She states she is urinating clots. She has had symptoms of urinary retention, at times she is able to push hard and urinate out some of the clots. She denies any dysuria or frequency or symptoms prior to that to the hematuria. She states she has had bladder infections in the past, she usually knows when they are coming on and she has had none of that this time. She has never had this before. It is gross hematuria with clots. She is on apixaban for history of atrial fibrillation. [facility] Medical History Atherosclerotic heart disease of [place] coronary artery without angina pectoris Atrial fibrillation Benign hypertension Bilateral interstitial pneumonia Cardiomyopathy, ischemic Chest pain Chronic low back pain Chronic nausea Chronic pain COPD (chronic obstructive pulmonary disease) Coronary artery disease COVID-19 virus infection Diabetes Difficult intubation Former smoker HFrEF (heart failure with reduced ejection fraction) Hirsutism History of non-ST elevation myocardial infarction (NSTEMI) (09/08/21) Hyperglycemia due to type 2 diabetes mellitus Hyperlipidemia Hypertension Irregular heart beat Kidney stones Left bundle branch block (LBBB) Myocardial infarct Non-ischemic cardiomyopathy Non-ST elevation (NSTEMI) myocardial infarction Nonobstructive atherosclerosis of coronary artery Obesity Paroxysmal atrial fibrillation Presence of cardiac 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) Seizures Syncope Thyroid nodule Type 2 diabetes mellitus Vomiting Home Medications hydroxyzine HCl 25 mg tablet 25 - 50 mg PO QHS PRN anxiety 02/24/22 [History Last Taken Unknown] melatonin 10 mg tablet 10 mg PO HS PRN Insomnia 02/24/22 [History Last Taken Unknown] BD Ultra-Fine [place] Pen Needle 32 gauge x /32 (pen needle, diabetic) #100 ea 07/29/22 [Rx Last Taken Unknown] diphenhydramine HCl 25 mg tablet 25 mg PO Q4H PRN PRN Allergy Symptoms 08/06/22 [History Last Taken Unknown] hydrocodone-acetaminophen 5-325mg 5mg-325mg 1 tab PO DAILY Check with primary doctor 08/06/22 [History Last Taken 08/06/22 10:00] naloxegol 25 mg tablet (Movantik) 25 mg PO QAM Check with primary doctor 08/06/22 [History Last Taken Unknown] omeprazole magnesium 20 mg tablet,delayed release (Prilosec OTC) 20 mg PO DAILY Check with primary doctor 08/06/22 [History Last Taken Unknown] promethazine 25 mg tablet 25 mg PO TID PRN PRN Nausea And Vomiting 08/06/22 [History Last Taken Unknown] tizanidine 4 mg tablet 4 mg PO QHS 08/06/22 [History Last Taken 08/05/22] dapagliflozin propanediol 10 mg tablet (Farxiga) 10 mg PO DAILY 10/20/22 [History Last Taken Unknown] ibuprofen 200 mg tablet 200 mg PO Q6H PRN fever or pain 10/20/22 [History Last Taken Unknown] insulin glargine 100 unit/mL (3 mL) subcutaneous pen (Lantus Solostar U-100 Insulin) 23 unit subcut DAILY Check with primary doctor 10/20/22 [History Last Taken Unknown] insulin lispro 100 unit/mL subcutaneous pen (Humalog KwikPen (U-100) Insulin) 12 unit subcut TIDCM Check with primary doctor 10/20/22 [History Last Taken Unknown] sacubitril 97 mg-valsartan 103 mg tablet (Entresto) 1 tab PO BID 10/20/22 [History Last Taken Unknown] flash glucose sensor (FreeStyle Sanam 2 Sensor kit) #2 ea 03/02/23 [Rx Last Taken Unknown] cholecalciferol (vitamin D3) 50 mcg (2,000 unit) capsule 1,000 unit PO DAILY 03/08/23 [History Last Taken Unknown] spironolactone 50 mg tablet 50 mg PO DAILY #90 tabs 03/08/23 [Rx Last Taken Unknown] carvedilol 25 mg tablet 25 mg PO BID Check with primary doctor #180 tabs 03/10/23 [Rx Last Taken Unknown] glipizide 10 mg tablet, extended release 24 hr 10 mg PO BID diabetes #180 tabs 03/14/23 [Rx Last Taken Unknown] methimazole 10 mg tablet 10 mg PO DAILY #90 tabs 03/14/23 [Rx Last Taken Unknown] clopidogrel 75 mg tablet (Plavix) 75 mg PO DAILY #90 tabs 05/16/23 [Rx Last Taken Unknown] apixaban 5 mg tablet (Eliquis) See Rx Instructions .Route .COMPLEX #180 tabs 05/31/23 [Rx Last Taken Unknown] atorvastatin 80 mg tablet See Rx Instructions .Route .COMPLEX #360 TABLETS 06/09/23 [Rx Last Taken Unknown] isosorbide mononitrate 30 mg tablet,extended release 24 hr See Rx Instructions .Route .COMPLEX #360 TABLETS 06/09/23 [Rx Last Taken Unknown] furosemide 40 mg tablet See Rx Instructions .Route .COMPLEX #90 TABLETS 07/04/23 [Rx Last Taken Unknown] dulaglutide 1.5 mg/0.5 mL subcutaneous pen injector (Trulicity) 1.5 mg (0.5 mL) subcut QWEEK #2 mL 08/11/23 [Rx Last Taken Unknown] flash glucose scanning reader (Puzl Sanam 2 Horseheads) #1 ea 08/11/23 [Rx Last Taken Unknown] Allergy/AdvReac Type Severity Reaction Status Date / Time amoxicillin trihydrate AdvReac Vomiting Verified 08/26/23 18:21 [From Augmentin] potassium clavulanate AdvReac Vomiting Verified 08/26/23 18:21 [From Augmentin] Family History Father Myocardial infarction Cancer prostate, leukemia Agent orange exposure Diabetes Sister Diabetes COPD (chronic obstructive pulmonary disease) Surgical History History of appendectomy History of back surgery History of cholecystectomy (1991) History of cholecystectomy History of coronary artery stent placement (05/19/21) History of hysterectomy History of laparoscopy History of left heart catheterization (09/14/21) History of tonsillectomy Status post insertion of nerve stimulator Social History household members: significant other Smoking Status: Former smoker how long ago did patient quit smokin alcohol intake: current alcohol intake frequency: holidays/special occasions only substance use type: does not use caffeine: Yes ROS ROS ED Constitutional Constitutional ED: Denies chills or fever(s) Eyes Eyes: Denies change in vision or diplopia ENT ENT ED: Denies rhinorrhea or sore throat Cardiovascular Cardiovascular: Denies chest pain or palpitations Respiratory/Chest Respiratory/Chest: Denies cough or dyspnea Gastrointestinal Gastrointestinal: Reports abdominal pain; Denies diarrhea, nausea or vomiting Genitourinary Genitourinary ED: Reports as per HPI, difficulty urinating, hematuria and urinary frequency; Denies dysuria Musculoskeletal Musculoskeletal: Denies back pain or neck pain Integumentary Denies abscess or rash Neurologic Neurologic: Denies headache(s), paresthesias or weakness Psychiatric Psychiatric: Denies anxiety or suicidal thoughts EXAM Physical Exam Const Vital Signs: 08/26/23 18:21 08/26/23 21:09 Temperature 97.1 F L Temperature Source Temporal Pulse Rate 110 H 106 H Respiratory Rate 22 H 16 Blood Pressure 141/83 H 140/60 H Blood Pressure Mean 102 86 Pulse Ox 100 Oxygen Delivery Method Room Air Positive well nourished and well developed General Appearance ED: well developed and NAD HEENT Reports moist mucous membranes normocephalic and atraumatic Eyes PERRL and EOMs intact bilaterally Neck full ROM and supple Resp normal respiratory effort and clear to auscultation bilaterally Cardio regular rate, regular rhythm and no murmurs GI non-tender and non-distended Auscultation: normoactive bowel sounds Palpation: soft Back/Spine no CVA tenderness General Back: other FROM Extremity normal to inspection General Extremety ED: Negative for edema, pulses abnormal or tenderness General Extremity: Negative for edema or pulses abnormal Neuro oriented x3, CN's II-XII intact bilaterally and no sensory deficits noted Sensorium / Orientation: awake and alert Motor Exam: strength 5/5 throughout Skin no rashes or lesions noted and no wounds MDM MDM MDM Narrative Medical decision making narrative: We catheterized the patient and were able to get out gross hematuria, continuous bladder irrigation was performed and after a bag was finished she continues to bleed, as the urine output turned bright red blood again. Her blood count looks stable, her last hemoglobin was about 13 now it is 12.4, renal function is normal, and the urine does not appear to be infected. Therefore sent her for CT of the abdomen/pelvis, with IV contrast. I reviewed the images and report which I agree with, it shows asymmetric posterior bladder wall thickening, they recommend correlation with cystoscopy. I discussed with urology Dr. Campoverde, who agrees that continuing CBI and admitting to hospitalist with urology consultation is completely reasonable. Patient is having pain due to the catheterization so I will give her some morphine for that. Lab Data Attestation: I reviewed the patient's lab results. Labs: Laboratory Results - last 24 hr 08/26/23 08/26/23 19:10 20:40 WBC 5.1 RBC 4.05 L Hgb 12.4 Hct 38.2 MCV 94.3 MCH 30.6 MCHC 32.5 RDW Std Deviation 46.1 H RDW Coeff of Tomi 13.6 Plt Count 222 MPV 9.9 Immature Gran % (Auto) 0.400 Neut % (Auto) 66.1 Lymph % (Auto) 25.5 [place] % (Auto) 6.6 Eos % (Auto) 1.2 Baso % (Auto) 0.2 Absolute Neuts (auto) 3.4 Absolute Lymphs (auto) 1.31 Nucleated RBC % 0 Sodium 141 Potassium 3.1 L Chloride 111 H Carbon Dioxide 23.0 Anion Gap 7 BUN 20 H Creatinine 0.86 Estim Creat Clear Calc 84.14 Est GFR (MDRD) Af Amer 88 Est GFR (MDRD) Non-Af 73 BUN/Creatinine Ratio 23.2 H Glucose 179 H Calcium 9.4 Urine Color Red Urine Clarity Turbid Urine pH 7.0 Ur Specific [place] 1.010 Urine Protein 500 H Urine Glucose (UA) 250 H Urine Ketones Negative Urine Occult Blood 150 H Urine Nitrite Negative Urine Bilirubin Negative Urine Urobilinogen Normal Ur Leukocyte Esterase Negative Urine RBC > 100 SEEN Urine WBC 0 SEEN Ur Squamous Epith Cells 0 SEEN Urine Bacteria 2+ Urine Mucus 0 SEEN Radiography Diagnostic Testing: Clinical Impression(s) from Imaging Studies Abdomen/Pelvis CT 08/26/23 19:46 IMPRESSION: * There is diffuse bladder wall thickening and pericecal fat stranding which may represent cystitis, with indwelling Gaspar catheter. There may be asymmetric thickening of the right posterolateral bladder wall. Consider cystoscopy for further evaluation and to exclude underlying malignancy. * Nonobstructive calculi in the lower pole of the right kidney are unchanged. * Unchanged nonobstructive calculi, lower pole right kidney. * Cholecystectomy, appendectomy and hysterectomy. Electronically Signed: Dean Lovell MD at 21:47 EDT , Management Discussion w/another healthcare provider: Hospitalist and [facility] (urology malini) Discharge Plan Dx/Rx/DC Orders Clinical Impression: Anticoagulated, Hematuria, Acute urinary retention Disposition Disposition: Acute Care Hospital [facility]
[2023-08-26 20:11] LABS: Absolute Lymphocyte Count 1.31 X10^3/uL (0.83-4.51); Absolute Neutrophil Count 3.4 X10^3/uL (2.0-7.7); Basophil# 0.01 X10^3/uL; Basophil% 0.2 % (0-1); Eosinophil# 0.06 X10^3/uL; Eosinophils% 1.2 % (0-5); Hematocrit 38.2 % (37-47); Hemoglobin 12.4 g/dL (12.0-15.0); Lymphocyte # 1.31 X10^3/ul (0.83-4.51); Lymphocyte % 25.5 % (19-41); Mean Corp Hgb Conc 32.5 g/dL (32-36); Mean Corpuscular Hgb 30.6 pg (27.0-32.0); Mean Corpuscular Volume 94.3 fL (81-99); Mean Platelet Vol. 9.9 fl (6.2-12.0); Monocyte# 0.34 X10^3/uL; Monocyte% 6.6 % (0-10); NRBC Flagged by Analyzer 0 % (0-5); Neutrophil % 66.1 % (47-70); Platelet Count 222 K/mm3 (150-450); RBC Distribution Width CV 13.6 % (11.6-14.6); RBC Distribution Width SD 46.1 fl (35.1-43.9); Red Blood Count 4.05 M/mm3 (4.2-5.4); White Blood Count 5.1 K/mm3 (4.4-11.0)
[2023-08-26 20:39] LABS: Anion Gap 7 (5-15); BUN 20 mg/dL (7-18); BUN/Creat Ratio 23.2 RATIO (10-20); Calcium,Total 9.4 mg/dL (8.5-10.1); Chloride 111 mmol/L (98-107); Creatinine, Serum 0.86 mg/dL (0.55-1.02); EST Glomerular Filtration Rate 73 mL/min (>60); Est Glom Filt Rate - Afr Amer 88 mL/min (>60); Estimated Creatinine Clearance 84.14 ml/min; Glucose 179 mg/dL (74-106); Potassium 3.1 mmol/L (3.5-5.1); Sodium Level 141 mmol/L (136-145)
[2023-08-26 20:50] LABS: Mucous, Urine 0 SEEN /hpf (<or=2+); Squamous Epithelial Cells - UA 0 SEEN /hpf (5-10); White Blood Cells 0 SEEN /hpf (0-5)
[2023-08-26 20:53] LABS: Color, Urine Red (Yellow); Glucose, Dipstick 250 mg/dl (Normal); Ketone-Dipstick Negative (Negative); Leukocyte Esterase-Dipstick Negative /ul (Negative); Nitrite-Dipstick Negative (Negative); Occult Blood-Urine 150 /ul (Negative); Protein-Dipstick 500 mg/dl (Negative); Urine Bilirubin Dipstick Negative (Negative); Urine Clarity Turbid (Clear); Urine Urobilinogen Normal (Normal)
[2023-08-26 21:05] LABS: Bacteria 2+ /hpf (None Seen); Red Blood Cells-Urine > 100 SEEN /hpf (0-5)
[2023-08-26 21:09] VITALS: BP 140/60; PULSE 106; RESP 16
[2023-08-26] MEDS: Morphine 4 MG/ML Syringe IV (22:28)
--- NOTE | 2023-08-26 22:36 | HP.PCM.HOS_ITS ---
HPI - General General Date of Admission: 08/26/23 Date of Service: 08/26/23 Chief Complaint: Hematuria HPI Narrative The patient is a 52 y/o F w/ PMHx: Obesity, CAD s/p PCI, Hyperthyroidism, PAF, HTN, HLD, HFrEF/Ischemic cardiomyopathy, Chronic low back pain status post insertion nerve stimulator, COPD, Diabetes mellitus type II, Former tobacco use who presents to the [facility] ED on 08/26/23 with history of significant hematuria throughout the day with notable blood clots with onset of worsening urinary retention noting difficulty urinating secondary to having to push out the clots with no recent dysuria or frequency prior to this onset but she has had bladder infections in the past however this is never occurred and given she was antico agulated because of concern prompting eventual ED evaluation. She notes discomfort now 08/13 but attributes it to the aguilar and noted prior she had no pain but pressure in the suprapubic region. Workup in the ED included T97.1, heart rate 110, BP 141/83, respiratory rate 22, 100% on room air, CBC with WBC 5.1, hemoglobin 12.4, platelet 222 without marked shift, BMP with potassium 3.1, chloride 111, BUN/creatinine 20/0.86, glucose 179, urinalysis with protein 500, glucose 250, negative ketone, occult blood 150, negative nitrite, urine RBCs greater than 100 with 2+ urine bacteria, urine culture pending per ED, CT abdomen and pelvis with diffuse bladder wall thickening and pericecal fat stranding possibly communications representative of cystitis with an indwelling Aguilar catheter with possibly asymmetric thickening of the right posterior lateral bladder wall, nonobstructive calculi in the lower pole of the right kidney unchanged, status post previous cholecystectomy, appendectomy, hysterectomy evident. In the ED patient ministered morphine 4 mg IV x 1. ED discussed case with Dr. Campoverde who will evaluate patient and possibly perform cystoscopy. In the ED CBI started. [facility] Medical History (Updated 08/26/23 @ 22:[address] Perlita Gómez MD) Atherosclerotic heart disease of [place] coronary artery without angina pectoris Atrial fibrillation Benign hypertension Cardiomyopathy, ischemic Chronic low back pain Chronic nausea COPD (chronic obstructive pulmonary disease) Coronary artery disease COVID-19 virus infection Diabetes Difficult intubation Former smoker HFrEF (heart failure with reduced ejection fraction) Hirsutism History of non-ST elevation myocardial infarction (NSTEMI) (09/08/21) Hyperglycemia due to type 2 diabetes mellitus Hyperlipidemia Hypertension Hyperthyroidism Irregular heart beat Kidney stones Left bundle branch block (LBBB) Myocardial infarct Non-ischemic cardiomyopathy Non-ST elevation (NSTEMI) myocardial infarction Obesity Paroxysmal atrial fibrillation Presence of cardiac 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 therapy defibrillator (SURGICAL ONCOLOGIST-D) Seizures Syncope Thyroid nodule Type 2 diabetes mellitus Vomiting Home Medications hydroxyzine HCl 25 mg tablet 25 - 50 mg PO QHS PRN anxiety 02/24/22 [History Last Taken Unknown] melatonin 10 mg tablet 10 mg PO HS PRN Insomnia 02/24/22 [History Last Taken Unknown] BD Ultra-Fine [place] Pen Needle 32 gauge x 5/32 (pen needle, diabetic) #100 ea 07/29/22 [Rx Last Taken Unknown] diphenhydramine HCl 25 mg tablet 25 mg PO Q4H PRN PRN Allergy Symptoms 08/06/22 [History Last Taken Unknown] hydrocodone-acetaminophen 5-325mg 5mg-325mg 1 tab PO DAILY Check with primary doctor 08/06/22 [History Last Taken 08/06/22 10:00] naloxegol 25 mg tablet (Movantik) 25 mg PO QAM Check with primary doctor 08/06/22 [History Last Taken Unknown] omeprazole magnesium 20 mg tablet,delayed release (Prilosec OTC) 20 mg PO DAILY Check with primary doctor 08/06/22 [History Last Taken Unknown] promethazine 25 mg tablet 25 mg PO TID PRN PRN Nausea And Vomiting 08/06/22 [History Last Taken Unknown] tizanidine 4 mg tablet 4 mg PO QHS 08/06/22 [History Last Taken 08/05/22] dapagliflozin propanediol 10 mg tablet (Farxiga) 10 mg PO DAILY 10/20/22 [History Last Taken Unknown] ibuprofen 200 mg tablet 200 mg PO Q6H PRN fever or pain 10/20/22 [History Last Taken Unknown] insulin glargine 100 unit/mL (3 mL) subcutaneous pen (Lantus Solostar U-100 Insulin) 23 unit subcut DAILY Check with primary doctor 10/20/22 [History Last Taken Unknown] insulin lispro 100 unit/mL subcutaneous pen (Humalog KwikPen (U-100) Insulin) 12 unit subcut TIDCM Check with primary doctor 10/20/22 [History Last Taken Unknown] sacubitril 97 mg-valsartan 103 mg tablet (Entresto) 1 tab PO BID 10/20/22 [History Last Taken Unknown] flash glucose sensor (FreeStyle Sanam 2 Sensor kit) #2 ea 03/02/23 [Rx Last Taken Unknown] cholecalciferol (vitamin D3) 50 mcg (2,000 unit) capsule 1,000 unit PO DAILY 03/08/23 [History Last Taken Unknown] spironolactone 50 mg tablet 50 mg PO DAILY #90 tabs 03/08/23 [Rx Last Taken Unknown] carvedilol 25 mg tablet 25 mg PO BID Check with primary doctor #180 tabs 03/10/23 [Rx Last Taken Unknown] glipizide 10 mg tablet, extended release 24 hr 10 mg PO BID diabetes #180 tabs 03/14/23 [Rx Last Taken Unknown] methimazole 10 mg tablet 10 mg PO DAILY #90 tabs 03/14/23 [Rx Last Taken Unknown] clopidogrel 75 mg tablet (Plavix) 75 mg PO DAILY #90 tabs 05/16/23 [Rx Last Taken Unknown] apixaban 5 mg tablet (Eliquis) See Rx Instructions .Route .COMPLEX #180 tabs 05/31/23 [Rx Last Taken Unknown] atorvastatin 80 mg tablet See Rx Instructions .Route .COMPLEX #360 TABLETS 06/09/23 [Rx Last Taken Unknown] isosorbide mononitrate 30 mg tablet,extended release 24 hr See Rx Instructions .Route .COMPLEX #360 TABLETS 06/09/23 [Rx Last Taken Unknown] furosemide 40 mg tablet See Rx Instructions .Route .COMPLEX #90 TABLETS 07/04/23 [Rx Last Taken Unknown] dulaglutide 1.5 mg/0.5 mL subcutaneous pen injector (Trulicity) 1.5 mg (0.5 mL) subcut QWEEK #2 mL 08/11/23 [Rx Last Taken Unknown] flash glucose scanning reader (FreeStyle Sanam 2 [place]) #1 ea 08/11/23 [Rx Last Taken Unknown] Allergy/AdvReac Type Severity Reaction Status Date / Time amoxicillin trihydrate AdvReac Vomiting Verified 08/26/23 18:21 [From Augmentin] potassium clavulanate AdvReac Vomiting Verified 08/26/23 18:21 [From Augmentin] Family History Father Myocardial infarction Cancer prostate, leukemia Agent orange exposure Diabetes Sister Diabetes COPD (chronic obstructive pulmonary disease) Mother CVA (cerebral vascular accident) Hypertension Surgical History History of appendectomy History of back surgery History of cholecystectomy (1991) History of cholecystectomy History of coronary artery stent placement (05/19/21) History of hysterectomy History of laparoscopy History of left heart catheterization (09/14/21) History of tonsillectomy Status post insertion of nerve stimulator Social History (Updated 08/26/23 @ 23:[address] Perlita Gómez MD) household members: significant other Smoking Status: Former smoker how long ago did patient quit smoking: Quit 1990, smoke 2 ppd since teen until quit. alcohol intake: current alcohol intake frequency: holidays/special occasions only substance use type: does not use caffeine: Yes ROS ROS Narrative Admission Review of Systems: CONSTITUTIONAL: No weight loss, fever, chills, + weakness or fatigue. HEENT: Eyes: No visual loss, blurred vision, double vision or yellow sclerae. Ears, Nose, Throat: No hearing loss, sneezing, congestion, runny nose or sore throat. SKIN: No rash or itching, lesions, wounds. CARDIOVASCULAR: No chest pain, chest pressure or chest discomfort, palpitations, edema, orthopnea, syncopal events. RESPIRATORY: No shortness of breath, cough or sputum, wheezing, hemoptysis. GASTROINTESTINAL: No anorexia, nausea, vomiting or diarrhea, abdominal pain, melena, BRBPR. GENITOURINARY: + Suprapubic pressure and hematuria. No dysuria or urgency reported. NEUROLOGICAL: No headache, dizziness, syncope, paralysis, ataxia, numbness or tingling in the extremities, focal weakness, change in bowel or bladder control, seizure. MUSCULOSKELETAL: + muscle, back pain, joint pain or stiffness. HEMATOLOGIC: + anemia, easy bleeding/bruising. LYMPHATICS: No enlarged nodes. No history of splenectomy. PSYCHIATRIC: No history of depression or anxiety. ENDOCRINOLOGIC: No reports of sweating, cold or heat intolerance. No polyuria or polydipsia. ALLERGIES: No history of asthma, hives, eczema or rhinitis. Vital Signs Vital Signs Vital Signs: 08/26/23 18:21 08/26/23 21:09 Temperature 97.1 F L Temperature Source Temporal Pulse Rate 110 H 106 H Respiratory Rate 22 H 16 Blood Pressure 141/83 H 140/60 H Blood Pressure Mean 102 86 Pulse Ox 100 Oxygen Delivery Method Room Air Weight Weight: 207 lb 6.4 oz Body Mass Index (BMI) 35.6 Physical Exam Narrative Physical Examination: General: Awake, alert, oriented x 3 and cooperative, seated upright in the ED bed, mildly uncomfortable, reports discomfort 3 out of 10 in severity secondary to Aguilar and reports prior to this she only had suprapubic pressure. Skin: Normal color, normal turgor, no icterus, no cyanosis. HEENT: AT/NC, EOMI, PERRLA, mildly dry MM, no carotid bruits or JVD noted. Lungs: Mildly diminished, greater bases, appropriate effort although mildly increased respiratory rate but no distress noted, no rales, ronchi or wheezing. Heart: Currently regular rate and rhythm; no gallop, rub audible. Abdomen: Soft, obese, mild discomfort with palpation of the suprapubic region otherwise abdomen NTTP, ND, hyperactive BS, no appreciated HSM. Extremities: No cyanosis, clubbing, or edema. Neurological: Patient awake, alert, oriented as noted, cognitive function intact; pupils equally reactive to light and accommodation, cranial nerves II- XII grossly normal, moving all 4 extremities, no focal deficits, strength mildly to moderately globally decreased secondary to acute complaints as well as CBI system in place. Psychiatric: Affect appears mildly uncomfortable, fatigued, no acute evidence of depressive or anxiety feelings. Results Lab / Micro Data 08/26/23 19:10 08/26/23 19:10 Labs: Laboratory Results - last 24 hr 08/26/23 19:10: WBC 5.1, RBC 4.05 L, Hgb 12.4, Hct 38.2, MCV 94.3, MCH 30.6, MCHC 32.5, RDW Std Deviation 46.1 H, RDW Coeff of Tomi 13.6, Plt Count 222, MPV 9.9, Immature Gran % (Auto) 0.400, Neut % (Auto) 66.1, Lymph % (Auto) 25.5, [place] % (Auto) 6.6, Eos % (Auto) 1.2, Baso % (Auto) 0.2, Absolute Neuts (auto) 3.4, Absolute Lymphs (auto) 1.31, Nucleated RBC % 0, Sodium 141, Potassium 3.1 L, Chloride 111 H, Carbon Dioxide 23.0, Anion Gap 7, BUN 20 H, Creatinine 0.86, Estim Creat Clear Calc 84.14, Est GFR (MDRD) Af Amer 88, Est GFR (MDRD) Non-Af 73, BUN/Creatinine Ratio 23.2 H, Glucose 179 H, Calcium 9.4 08/26/23 20:40: Urine Color Red, Urine Clarity Turbid, Urine pH 7.0, Ur Specific [place] 1.010, Urine Protein 500 H, Urine Glucose (UA) 250 H, Urine Ketones Negative, Urine Occult Blood 150 H, Urine Nitrite Negative, Urine Bilirubin Negative, Urine Urobilinogen Normal, Ur Leukocyte Esterase Negative, Urine RBC > 100 SEEN, Urine WBC 0 SEEN, Ur Squamous Epith Cells 0 SEEN, Urine Bacteria 2+, Urine Mucus 0 SEEN Imaging Radiology Impression Abdomen/Pelvis CT 08/26/23 19:46 IMPRESSION: * There is diffuse bladder wall thickening and pericecal fat stranding which may represent cystitis, with indwelling Aguilar catheter. There may be asymmetric thickening of the right posterolateral bladder wall. Consider cystoscopy for further evaluation and to exclude underlying malignancy. * Nonobstructive calculi in the lower pole of the right kidney are unchanged. * Unchanged nonobstructive calculi, lower pole right kidney. * Cholecystectomy, appendectomy and hysterectomy. Electronically Signed: Dean Lovell MD at 21:47 EDT Reading Location ID and State: [address] [place] [address] Tel , Service support , Assessment & Plan Assessment/Plan (1) Acute urinary retention: (2) Hematuria: PLAN: Plan The patient is a 52 y/o F w/ PMHx: Obesity, CAD s/p PCI, Hyperthyroidism, PAF, HTN, HLD, HFrEF/Ischemic cardiomyopathy, Chronic low back pain status post insertion nerve stimulator, COPD, Diabetes mellitus type II, Former tobacco use who presents to the [facility] ED on 08/26/23 with history of significant hematuria throughout the day with notable blood clots with onset of worsening urinary retention noting difficulty urinating secondary to having to push out the clots with no recent dysuria or frequency prior to this onset but she has had bladder infections in the past however this is never occurred and given she was anticoagulated because of concern prompting eventual ED evaluation. #1. Acute urinary retention with possible acute complicated urinary tract infection with acute hematuria with evidence of mild acute blood loss anemia: Admission hemoglobin 12.4, most recent prior to this 08/02/2023 hemoglobin 13 although has previously vacillated thus currently blood loss is not severe, given retention Aguilar catheter placed in the ED, given 2+ urine bacteria noted although no obvious evidence of UTI to be cautious in the interim will place on IV Rocephin therapy, urology consulted and evaluation pending, will maintain n.p.o. status after midnight for suspected a.m. cystoscopy needs, will maintain ED initiated continuous bladder irrigation, will trend CBC. #2. Hypokalemia: Admission K+ 3.1, magnesium level requested, supplementation given, repeat level in AM. #3. CAD: Status post previous PCI, given acute presentation with hematuria with previous intervention will cautiously continue Plavix if urology amenable however holding apixaban regimen, continue Coreg, Entresto, statin therapy. #4. HFrEF/ischemic cardiomyopathy: Status post previous SURGICAL ONCOLOGIST-D [employer], most recently assessed 07/25/2023, will cautiously hydrate given presentation, will continue patient home Plavix cautiously if amenable per urology, holding Eliquis as noted, continue Coreg, Entresto, spironolactone, Lasix regimen given appropriate renal function and BP, low threshold to hold however if status changes. Most recent echocardiogram noted 12/16/2022 with normal LV size, LVEF 45%, stage I diastolic dysfunction. #5. Chronic COPD: Per current list not on chronic regimen, if necessary may add ATC budesonide otherwise will maintain PRN albuterol, HOB, IS parameters. #6. Hypertension: Continue home regimen including spironolactone, Entresto, isosorbide, Lasix, Coreg given appropriate renal function at this time and no evidence of hypotension, PRN hydralazine. #7. Hyperlipidemia: We will continue patient on statin therapy. #8. PAF: We will temporarily hold patient home apixaban especially given acute presentation with hematuria, will continue patient home Coreg regimen. #9. Diabetes mellitus type II: Hold oral home regimen, continue home insulin regimen, ADA diet, accu checks w/ ISS. #10. Obesity: Weight loss and lifestyle changes encouraged. #11. Former tobacco use: Encourage continued tobacco cessation. #12. GERD: We will continue patient on PPI. #13. Hyperthyroidism: We will continue patient home methimazole regimen. #14. DVT prophylaxis: Holding patient home Eliquis regimen given presentation as noted #1. #15. CODE status: Patient BOB is her significant other Tino who is present as well as Virgen New her sister and Aj and Chance her 2 sons and living will is currently in place. Discussed CODE status at length including difference between FULL code, DNR-CCA and DNR-CC status. Following discussions about the differences in these status, requested Full Code status. Advanced Care Planning Face to Face Time: 16 minutes. Charges/Coding Visit Charges Inpatient E&M: 14639 Init Hosp L3 Procedures Hospitalists Procedures: 62788 Advncd Care Plan 30 Min
[2023-08-26 22:44] VITALS: BP 160/72; PULSE 84; RESP 20; TEMP 37.1; O2SAT 96
[2023-08-26] MEDS: Ondansetron 4 MG/2 ML Vial IV (22:51)
[2023-08-26 23:00] VITALS: BP 173/77; PULSE 94; RESP 18; O2SAT 96
[2023-08-26 23:19] LABS: Magnesium 2.1 mg/dL (1.6-2.6)
[2023-08-26 23:52] VITALS: BP 142/65; PULSE 99; RESP 18; TEMP 36.8; O2SAT 99
[2023-08-26 23:55] VITALS: BMI 35.8
[2023-08-27] VITALS (7 sets, daily range): BP systolic 98–135; BP diastolic 48–65; PULSE 79–98; RESP 16–18; TEMP 36.6–37.1; O2SAT 96–98; BMI 35.8
[2023-08-27] MEDS: Potassium Chloride Oral Tablet 20 MEQ 40 MEQ PO (00:40)
[2023-08-27] MEDS: Morphine 2 MG/ML Syringe IV ×5 (00:40→18:19)
[2023-08-27] MEDS: 0.9% Normal Saline (1000mL) 1,000 ML 75 ML IV (00:41)
[2023-08-27] MEDS: Ceftriaxone 1 GM/50 ML BAG IV ×2 (00:51→21:20)
[2023-08-27] MEDS: Insulin Lispro 100 UNIT/ML INSULN.PEN SC ×4 (01:16→17:42)
[2023-08-27] MEDS: SACUBITRIL/VALSARTAN 97-103 MG TABLET 1 EACH PO ×3 (01:18→21:19)
[2023-08-27] MEDS: Carvedilol 25 MG Tablet PO ×3 (01:19→21:19)
[2023-08-27] MEDS: Atorvastatin Calcium 80 MG Tablet PO ×2 (01:20→21:19)
[2023-08-27] MEDS: tiZANidine HCl 2 MG Tablet 4 MG PO ×2 (01:20→21:19)
[2023-08-27 01:39] LABS: Bedside Glucose 204 mg/dL (74-106)
[2023-08-27] MEDS: 0.9% Saline Lock 10 ML Syringe IV (03:33)
[2023-08-27 06:09] LABS: Absolute Lymphocyte Count 1.71 X10^3/uL (0.83-4.51); Absolute Neutrophil Count 2.1 X10^3/uL (2.0-7.7); Basophil# 0.01 X10^3/uL; Basophil% 0.2 % (0-1); Eosinophil# 0.08 X10^3/uL; Eosinophils% 1.8 % (0-5); Hematocrit 31.3 % (37-47); Hemoglobin 10.2 g/dL (12.0-15.0); Lymphocyte # 1.71 X10^3/ul (0.83-4.51); Lymphocyte % 38.4 % (19-41); Mean Corp Hgb Conc 32.6 g/dL (32-36); Mean Corpuscular Hgb 31.2 pg (27.0-32.0); Mean Corpuscular Volume 95.7 fL (81-99); Mean Platelet Vol. 9.9 fl (6.2-12.0); Monocyte% 11.2 % (0-10); NRBC Flagged by Analyzer 0 % (0-5); Neutrophil # 2.14 X10^3/uL (2.7-7.7); Neutrophil % 48.2 % (47-70); Platelet Count 212 K/mm3 (150-450); RBC Distribution Width SD 49.1 fl (35.1-43.9); Red Blood Count 3.27 M/mm3 (4.2-5.4); White Blood Count 4.5 K/mm3 (4.4-11.0)
[2023-08-27 06:30] LABS: ALB/GLOB Ratio 0.9 RATIO (0.9-2.4); AST(SGOT) 13 U/L (15-37); Alanine Aminotransfer ALT/SGPT 16 U/L (13-56); Albumin, Serum 2.9 g/dL (3.2-5.0); Alkaline Phosphatase 71 U/L (45-117); Anion Gap 6 (5-15); BUN 16 mg/dL (7-18); BUN/Creat Ratio 19.4 RATIO (10-20); Calcium,Total 8.3 mg/dL (8.5-10.1); Chloride 112 mmol/L (98-107); Creatinine, Serum 0.83 mg/dL (0.55-1.02); EST Glomerular Filtration Rate 77 mL/min (>60); Est Glom Filt Rate - Afr Amer 93 mL/min (>60); Estimated Creatinine Clearance 87.69 ml/min; Globulin 3.2 g/dL (2.2-4.2); Glucose 215 mg/dL (74-106); Potassium 3.2 mmol/L (3.5-5.1); Protein, Total 6.1 g/dL (6.4-8.2); Sodium Level 141 mmol/L (136-145)
[2023-08-27] MEDS: Pantoprazole Sodium 20 MG Tablet PO (08:30)
[2023-08-27] MEDS: Ondansetron 4 MG/2 ML Vial IV ×2 (08:57→18:18)
--- NOTE | 2023-08-27 09:32 | NURSING ---
attempt to turn CBI down unsucessful, even at fairly moderate rate, f/c clotted off within 20 minutes-after irrigating w/ 30 SNS x5, obtaining multiple small clots,. flow was re-established and is draining pale pink, pt was fairly painful during irrigation and pt medicated for pain, and nausea sig other at bedside and is supportive
--- NOTE | 2023-08-27 10:12 | PN.HOSP_ITS ---
Reason for Visit Reason for Visit: Diagnoses Hematuria, unspecified (08/26/23) Other retention of urine (08/26/23) Subjective Subjective Patient was seen and examined today, cording to nursing there were still clots in the patient's Gaspar after flushing the bladder, urology has not seen the patient in consultation. Patient's hemoglobin this morning dropped to 10.2 from 12.4. Potassium was slightly low at 3.2. Objective Data Objective Data Vital Signs: Vital Signs Temp Pulse Resp BP Pulse Ox O2 Del Method 98.6 F 83 16 98/48 L 98 Room Air 08/27/23 05:54 08/27/23 05:54 08/27/23 05:54 08/27/23 05:54 08/27/23 05:54 08/27/23 05:54 Oxygen Delivery Method Room Air Weight: 95.1 kg Body Mass Index (BMI) 35.8 Intake & Output: Intake and Output for Last 24 Hours 08/25/23 08/26/23 08/27/23 23:59 23:59 23:59 Intake Total 62.5 / 62.5 Output Total 1700 / 1700 1400 / 1400 Balance -1700 / -1700 -1337.5 / -1337.5 Lab / Micro Data 08/27/23 05:45 08/27/23 05:45 Labs: Laboratory Results - last 24 hr 08/26/23 19:10: WBC 5.1, RBC 4.05 L, Hgb 12.4, Hct 38.2, MCV 94.3, MCH 30.6, MCHC 32.5, RDW Std Deviation 46.1 H, RDW Coeff of Tomi 13.6, Plt Count 222, MPV 9.9, Immature Gran % (Auto) 0.400, Neut % (Auto) 66.1, Lymph % (Auto) 25.5, [place] % (Auto) 6.6, Eos % (Auto) 1.2, Baso % (Auto) 0.2, Absolute Neuts (auto) 3.4, Absolute Lymphs (auto) 1.31, Nucleated RBC % 0, Sodium 141, Potassium 3.1 L, Chloride 111 H, Carbon Dioxide 23.0, Anion Gap 7, BUN 20 H, Creatinine 0.86, Estim Creat Clear Calc 84.14, Est GFR (MDRD) Af Amer 88, Est GFR (MDRD) Non-Af 73, BUN/Creatinine Ratio 23.2 H, Glucose 179 H, Calcium 9.4, Magnesium 2.1 08/26/23 20:40: Urine Color Red, Urine Clarity Turbid, Urine pH 7.0, Ur Specific [place] 1.010, Urine Protein 500 H, Urine Glucose (UA) 250 H, Urine Ketones Negative, Urine Occult Blood 150 H, Urine Nitrite Negative, Urine Bilirubin Negative, Urine Urobilinogen Normal, Ur Leukocyte Esterase Negative, Urine RBC > 100 SEEN, Urine WBC 0 SEEN, Ur Squamous Epith Cells 0 SEEN, Urine Bacteria 2+, Urine Mucus 0 SEEN 08/27/23 00:50: POC Glucose 204 H 08/27/23 05:45: WBC 4.5, RBC 3.27 L, Hgb 10.2 L, Hct 31.3 L, MCV 95.7, MCH 31.2, MCHC 32.6, RDW Std Deviation 49.1 H, RDW Coeff of Tomi 14.0, Plt Count 212, MPV 9.9, Immature Gran % (Auto) 0.200, Neut % (Auto) 48.2, Lymph % (Auto) 38.4, [place] % (Auto) 11.2 H, Eos % (Auto) 1.8, Baso % (Auto) 0.2, Absolute Neuts (auto) 2.1, Absolute Lymphs (auto) 1.71, Nucleated RBC % 0, Sodium 141, Potassium 3.2 L, Chloride 112 H, Carbon Dioxide 23.0, Anion Gap 6, BUN 16, Creatinine 0.83, Estim Creat Clear Calc 87.69, Est GFR (MDRD) Af Amer 93, Est GFR (MDRD) Non-Af 77, BUN/Creatinine Ratio 19.4, Glucose 215 H, Calcium 8.3 L, Total Bilirubin 0.50, AST 13 L, ALT 16, Alkaline Phosphatase 71, Total Protein 6.1 L, Albumin 2.9 L, Globulin 3.2, Albumin/Globulin Ratio 0.9 Radiography Diagnostic Testing: Radiology Impression Abdomen/Pelvis CT 08/26/23 19:46 IMPRESSION: * There is diffuse bladder wall thickening and pericecal fat stranding which may represent cystitis, with indwelling Gaspar catheter. There may be asymmetric thickening of the right posterolateral bladder wall. Consider cystoscopy for further evaluation and to exclude underlying malignancy. * Nonobstructive calculi in the lower pole of the right kidney are unchanged. * Unchanged nonobstructive calculi, lower pole right kidney. * Cholecystectomy, appendectomy and hysterectomy. Electronically Signed: Dean Lovell MD at 21:47 EDT Reading Location ID and State: [facility] Tel , Service support , Physical Exam Const alert, oriented x3 and no apparent distress General Appearance: cooperative, well kempt and well developed Orientation / Consciousness: awake, oriented to person, oriented to place and oriented to time HEENT normocephalic, head/scalp atraumatic and moist oral mucous membranes Eyes PERRL, EOMs intact bilaterally and conjunctivae normal Neck supple, no JVD, thyroid normal and no carotid bruits General: trachea midline Resp normal respiratory effort, no retractions, no use of accessory muscles and clear to auscultation bilaterally Auscultation: Negative for rales, rhonchi or wheezes Cardio regular rate, regular rhythm, S1 normal heart sound, S2 normal heart sound, no murmurs, no rub and no gallops GI normal to inspection, nondistended, normoactive bowel sounds, soft to palpation, non-tender and non-distended Extremity no clubbing, cyanosis or edema Skin no rashes or lesions noted General Skin Exam: no breakdown Neuro oriented x3, CN's II-XII intact bilaterally, no focal motor deficits and no sensory deficits noted Sensorium / Orientation: awake and alert Speech: speech normal Psych affect normal Assessment & Plan Assessment/Plan (1) Acute urinary retention: PLAN: Plan 1. Acute hematuria with urinary retention secondary to clots-patient will continue bladder irrigation, she will be seen in consultation by urology, patient's Eliquis will be held #2 type 2 diabetes-patient's blood sugars will be monitored, sliding scale insulin will be given as needed #3 acute blood loss anemia secondary to acute hematuria-patient's labs will be monitored as needed, she does not require blood transfusion at this time #4 hypokalemia-patient will be given additional potassium #5 paroxysmal [id number] is on rate limiting medications, apixaban is being held #6 ischemic cardiomyopathy-her last echocardiogram showed a 45% EF, complicates care, medical course, recovery, and prognosis Total clinical time spent by myself addressing the patient's medical issues, reviewing all of her data, and collaborating with patient's care team: 35 minutes Charges/Coding Visit Charges Inpatient E&M: 25373 Subs Hosp L2
[2023-08-27] MEDS: Isosorbide Mononitrate 30 MG Tablet PO (10:25)
[2023-08-27] MEDS: Spironolactone 50 MG Tablet PO (10:26)
[2023-08-27] MEDS: Methimazole 5 MG Tablet 10 MG PO (10:30)
[2023-08-27] MEDS: Nystatin Powder 15gm Bottle 1 APPLIC TOPICAL ×2 (10:30→21:20)
[2023-08-27 11:43] LABS: Bedside Glucose 182 mg/dL (74-106)
--- NOTE | 2023-08-27 13:38 | CON.PCM.UR_ITS ---
Assessment & Plan Assessment/Plan (1) Acute urinary retention: PLAN: Continue with continuous bladder irrigation slowly slow it down we will try a voiding trial tomorrow probably (2) Hematuria: (3) Anticoagulated: HPI Consult Data Date of Consult: 08/27/23 HPI Narrative Reason for Consultation: Gross hematuria HPI Narrative: PITO CLARK, is a 52 F who presents to the hospital with gross hematuria she is anticoagulated for heart conditions, she presented with gross bleeding. Gaspar catheter has been placed and is on continuous irrigation and it is completely clear at this point she is having occasional spasms that cause of the irrigation to stop. Will continue with irrigation for now hold all blood thinners once the bleeding is stopped then will take out the catheter for voiding trial. [facility] [place] Medical History Atherosclerotic heart disease of citizen [place] coronary artery without angina pectoris Atrial fibrillation Benign hypertension Cardiomyopathy, ischemic Chronic low back pain Chronic nausea COPD (chronic obstructive pulmonary disease) Coronary artery disease COVID-19 virus infection Diabetes Difficult intubation Former smoker HFrEF (heart failure with reduced ejection fraction) Hirsutism History of non-ST elevation myocardial infarction (NSTEMI) (09/08/21) Hyperglycemia due to type 2 diabetes mellitus Hyperlipidemia Hypertension Hyperthyroidism Irregular heart beat Kidney stones Left bundle branch block (LBBB) Myocardial infarct Non-ischemic cardiomyopathy Non-ST elevation (NSTEMI) myocardial infarction Obesity Paroxysmal atrial fibrillation Presence of cardiac 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 therapy defibrillator ([employer]-D) Seizures Syncope Thyroid nodule Type 2 diabetes mellitus Vomiting Home Medications hydroxyzine HCl 25 mg tablet 25 - 50 mg PO QHS PRN anxiety 02/24/22 [History Last Taken Unknown] melatonin 10 mg tablet 10 mg PO HS PRN Insomnia 02/24/22 [History Last Taken Unknown] BD Ultra-Fine [place] Pen Needle 32 gauge x /32 (pen needle, diabetic) #100 ea 07/29/22 [Rx Last Taken Unknown] diphenhydramine HCl 25 mg tablet 25 mg PO Q4H PRN PRN Allergy Symptoms 08/06/22 [History Last Taken Unknown] hydrocodone-acetaminophen 5-325mg 5mg-325mg 1 tab PO DAILY Check with primary doctor 08/06/22 [History Last Taken 08/06/22 10:00] naloxegol 25 mg tablet (Movantik) 25 mg PO QAM Check with primary doctor 08/06/22 [History Last Taken Unknown] omeprazole magnesium 20 mg tablet,delayed release (Prilosec OTC) 20 mg PO DAILY Check with primary doctor 08/06/22 [History Last Taken Unknown] promethazine 25 mg tablet 25 mg PO TID PRN PRN Nausea And Vomiting 08/06/22 [History Last Taken Unknown] tizanidine 4 mg tablet 4 mg PO QHS 08/06/22 [History Last Taken 08/05/22] dapagliflozin propanediol 10 mg tablet (Farxiga) 10 mg PO DAILY 10/20/22 [History Last Taken Unknown] ibuprofen 200 mg tablet 200 mg PO Q6H PRN fever or pain 10/20/22 [History Last Taken Unknown] insulin glargine 100 unit/mL (3 mL) subcutaneous pen (Lantus Solostar U-100 Insulin) 23 unit subcut DAILY Check with primary doctor 10/20/22 [History Last Taken Unknown] insulin lispro 100 unit/mL subcutaneous pen (Humalog KwikPen (U-100) Insulin) 12 unit subcut TIDCM Check with primary doctor 10/20/22 [History Last Taken Unknown] sacubitril 97 mg-valsartan 103 mg tablet (Entresto) 1 tab PO BID 10/20/22 [History Last Taken Unknown] flash glucose sensor (FreeStyle Sanam 2 Sensor kit) #2 ea 03/02/23 [Rx Last Taken Unknown] cholecalciferol (vitamin D3) 50 mcg (2,000 unit) capsule 1,000 unit PO DAILY 03/08/23 [History Last Taken Unknown] spironolactone 50 mg tablet 50 mg PO DAILY #90 tabs 03/08/23 [Rx Last Taken Unkn own] carvedilol 25 mg tablet 25 mg PO BID Check with primary doctor #180 tabs 03/10/23 [Rx Last Taken Unknown] glipizide 10 mg tablet, extended release 24 hr 10 mg PO BID diabetes #180 tabs 03/14/23 [Rx Last Taken Unknown] methimazole 10 mg tablet 10 mg PO DAILY #90 tabs 03/14/23 [Rx Last Taken Unkn own] clopidogrel 75 mg tablet (Plavix) 75 mg PO DAILY #90 tabs 05/16/23 [Rx Last Taken Unknown] apixaban 5 mg tablet (Eliquis) See Rx Instructions .Route .COMPLEX #180 tabs 05/31/23 [Rx Last Taken Unknown] atorvastatin 80 mg tablet See Rx Instructions .Route .COMPLEX #360 TABLETS 06/09/23 [Rx Last Taken Unknown] isosorbide mononitrate 30 mg tablet,extended release 24 hr See Rx Instructions .Route .COMPLEX #360 TABLETS 06/09/23 [Rx Last Taken Unknown] furosemide 40 mg tablet See Rx Instructions .Route .COMPLEX #90 TABLETS 07/04/23 [Rx Last Taken Unknown] dulaglutide 1.5 mg/0.5 mL subcutaneous pen injector (Trulicity) 1.5 mg (0.5 mL) subcut QWEEK #2 mL 08/11/23 [Rx Last Taken Unknown] flash glucose scanning reader (BroadHop Sanam 2 Oakes) #1 ea 08/11/23 [Rx Last Taken Unknown] Allergy/AdvReac Type Severity Reaction Status Date / Time amoxicillin trihydrate AdvReac Vomiting Verified 08/26/23 18:21 [From Augmentin] potassium clavulanate AdvReac Vomiting Verified 08/26/23 18:21 [From Augmentin] Family History Father Myocardial infarction Cancer prostate, leukemia Agent orange exposure Diabetes Sister Diabetes COPD (chronic obstructive pulmonary disease) Mother CVA (cerebral vascular accident) Hypertension Surgical History History of appendectomy History of back surgery History of cholecystectomy (1991) History of cholecystectomy History of coronary artery stent placement (05/19/21) History of hysterectomy History of laparoscopy History of left heart catheterization (09/14/21) History of tonsillectomy Status post insertion of nerve stimulator Social History household members: significant other Smoking Status: Former smoker how long ago did patient quit smoking: Quit 1990, smoke 2 ppd since teen until quit. alcohol intake: current alcohol intake frequency: holidays/special occasions only substance use type: does not use caffeine: Yes Physical Exam Const alert and oriented x3 General Appearance: cooperative HEENT normocephalic, head/scalp atraumatic, EAC's normal and TM's normal bilaterally Eyes PERRL and EOMs intact bilaterally Pupil: sluggish Neck no lymphadenopathy, supple and no JVD General: trachea midline Lymph Lymphatic: no lymphadenopathy noted, lymphedema and lymphadenopathy Resp normal respiratory effort, normal air movement and clear to auscultation bilaterally Cardio regular rate, regular rhythm and peripheral pulses 2+ throughout GI soft to palpation, non-tender and non-distended Extremity normal capillary refill and no clubbing, cyanosis or edema General Extremity: no tenderness to palpation of joints or extremities Skin no rashes or lesions noted General Skin Exam: turgor normal Lesions: no lesions Rashes: no rashes Neuro CN's II-XII intact bilaterally Speech: speech normal Motor Exam: strength 5/5 throughout; Negative for general weakness Psych thought process normal, cooperative and affect normal Appearance: appropriate Medical Records Data Attestation: I reviewed the patient's medical records Lab / Micro Data 08/27/23 05:45 08/27/23 05:45 Labs: Laboratory Results - last 24 hr 08/26/23 19:10: WBC 5.1, RBC 4.05 L, Hgb 12.4, Hct 38.2, MCV 94.3, MCH 30.6, MCHC 32.5, RDW Std Deviation 46.1 H, RDW Coeff of Tomi 13.6, Plt Count 222, MPV 9.9, Immature Gran % (Auto) 0.400, Neut % (Auto) 66.1, Lymph % (Auto) 25.5, [place] % (Auto) 6.6, Eos % (Auto) 1.2, Baso % (Auto) 0.2, Absolute Neuts (auto) 3.4, Absolute Lymphs (auto) 1.31, Nucleated RBC % 0, Sodium 141, Potassium 3.1 L, Chloride 111 H, Carbon Dioxide 23.0, Anion Gap 7, BUN 20 H, Creatinine 0.86, Estim Creat Clear Calc 84.14, Est GFR (MDRD) Af Amer 88, Est GFR (MDRD) Non-Af 73, BUN/Creatinine Ratio 23.2 H, Glucose 179 H, Calcium 9.4, Magnesium 2.1 08/26/23 20:40: Urine Color Red, Urine Clarity Turbid, Urine pH 7.0, Ur Specific [place] 1.010, Urine Protein 500 H, Urine Glucose (UA) 250 H, Urine Ketones Negative, Urine Occult Blood 150 H, Urine Nitrite Negative, Urine Bilirubin Negative, Urine Urobilinogen Normal, Ur Leukocyte Esterase Negative, Urine RBC > 100 SEEN, Urine WBC 0 SEEN, Ur Squamous Epith Cells 0 SEEN, Urine Bacteria 2+, Urine Mucus 0 SEEN 08/27/23 00:50: POC Glucose 204 H 08/27/23 05:45: WBC 4.5, RBC 3.27 L, Hgb 10.2 L, Hct 31.3 L, MCV 95.7, MCH 31.2, MCHC 32.6, RDW Std Deviation 49.1 H, RDW Coeff of Tomi 14.0, Plt Count 212, MPV 9.9, Immature Gran % (Auto) 0.200, Neut % (Auto) 48.2, Lymph % (Auto) 38.4, [place] % (Auto) 11.2 H, Eos % (Auto) 1.8, Baso % (Auto) 0.2, Absolute Neuts (auto) 2.1, Absolute Lymphs (auto) 1.71, Nucleated RBC % 0, Sodium 141, Potassium 3.2 L, C hloride 112 H, Carbon Dioxide 23.0, Anion Gap 6, BUN 16, Creatinine 0.83, Estim Creat Clear Calc 87.69, Est GFR (MDRD) Af Amer 93, Est GFR (MDRD) Non-Af 77, BUN/Creatinine Ratio 19.4, Glucose 215 H, Calcium 8.3 L, Total Bilirubin 0.50, AST 13 L, ALT 16, Alkaline Phosphatase 71, Total Protein 6.1 L, Albumin 2.9 L, Globulin 3.2, Albumin/Globulin Ratio 0.9 08/27/23 11:23: POC Glucose 182 H Micro: Microbiology 08/26/23 20:40 Urine Catheter - Gaspar Urine Culture - Preliminary Gram negative jason Imaging Radiology Impression Abdomen/Pelvis CT 08/26/23 19:46 IMPRESSION: * There is diffuse bladder wall thickening and pericecal fat stranding which may represent cystitis, with indwelling Gaspar catheter. There may be asymmetric thickening of the right posterolateral bladder wall. Consider cystoscopy for further evaluation and to exclude underlying malignancy. * Nonobstructive calculi in the lower pole of the right kidney are unchanged. * Unchanged nonobstructive calculi, lower pole right kidney. * Cholecystectomy, appendectomy and hysterectomy. Electronically Signed: Dean Lovell MD at 21:47 EDT ,
--- NOTE | 2023-08-27 14:04 | CASEMGMT ---
RN CM Assessment: Face to Face with pt for initial transition planning/care coordination assessment. RN CM introduced self and role at [facility], pt voices understanding and consents to assessment. Pt is A&O x4 and answers all questions appropriately at this time. Care providers, pharmacy, and demographics verified/updated. Admitting Dx: hematuria, urinary retention PCP: Dr. Tatum Specialists: Dr. Ho, [facility] Preferred Pharmacy: [facility] Insurance: [employer] Pres[employer] Benefit: yes LNOK: [employer] Living Arrangements: Pt lives at home with significant other and his sister. Home is 1 story with no stairs. Pt is independent with ADLs and IADLs at baseline. Transportation: Pt drives self and denies concerns with transportation. DME: None HHC/SNF: [facility], pt reports this was a terrible experience. Pt states no concerns with going home at time of dc. Pt states no further concerns/needs. CM to follow. Advised pt to ask CM if any further question/concerns/needs arise, voices understanding. Pt Goal: Home Plan: Home with no skilled needs. Awaiting plan for aguilar. Jennifer Mills MSN, RN, CCM
[2023-08-27 16:25] LABS: Bedside Glucose 252 mg/dL (74-106)
--- NOTE | 2023-08-27 16:29 | NURSING ---
CBI stopped running, pt uncomfortable-f/c irrigated w/ 30 ml of SNS w/ return of small dark clots , reconnected to CBI and running again
[2023-08-27] MEDS: Insulin Lispro 100 UNIT/ML INSULN.PEN 12 UNIT SC (17:41)
[2023-08-27 21:50] LABS: Bedside Glucose 124 mg/dL (74-106)
[2023-08-28 03:30] VITALS: BP 106/48; PULSE 87; RESP 16; TEMP 37.1; O2SAT 95
[2023-08-28 03:48] VITALS: BMI 35.7
[2023-08-28] MEDS: Insulin Glargine-YFGN 100 UNIT/ML Pen 23 UNIT SC (08:23)
[2023-08-28] MEDS: Insulin Lispro 100 UNIT/ML INSULN.PEN SC ×4 (08:23→21:21)
[2023-08-28] MEDS: Insulin Lispro 100 UNIT/ML INSULN.PEN 12 UNIT SC ×3 (08:23→15:55)
[2023-08-28 08:30] VITALS: BP 126/68; PULSE 67; RESP 18; TEMP 36.7; O2SAT 96
[2023-08-28] MEDS: Morphine 2 MG/ML Syringe IV ×2 (08:34→12:20)
[2023-08-28] MEDS: SACUBITRIL/VALSARTAN 97-103 MG TABLET 1 EACH PO ×2 (08:47→21:21)
[2023-08-28] MEDS: Carvedilol 25 MG Tablet PO ×2 (08:47→21:21)
[2023-08-28] MEDS: Methimazole 5 MG Tablet 10 MG PO (08:48)
[2023-08-28] MEDS: Pantoprazole Sodium 20 MG Tablet PO (08:48)
[2023-08-28] MEDS: Nystatin Powder 15gm Bottle 1 APPLIC TOPICAL ×2 (08:49→21:21)
[2023-08-28] MEDS: Spironolactone 50 MG Tablet PO (08:50)
[2023-08-28] MEDS: Isosorbide Mononitrate 30 MG Tablet PO (08:50)
[2023-08-28] MEDS: Furosemide 40 MG Tablet PO (08:51)
--- NOTE | 2023-08-28 08:59 | NURSING ---
This RN slowed CBI down for approximately 20min. Pt got up to chair and felt very painful. Deep breathing, pursed lip breathing through the pain, tearful. Drainage in aguilar is clr pale yellow. Pt bared down and medium sized clot was seen coming out into aguilar. Pt still painful. This RN attempted to irrigate but did not get any clots. Morphine given.
[2023-08-28 09:16] LABS: Bedside Glucose 157 mg/dL (74-106)
[2023-08-28 09:21] VITALS: O2SAT 95
[2023-08-28] MEDS: HYDROcodone Bitartrate/Apap 5/325 Tablet PO (11:08)
--- NOTE | 2023-08-28 11:48 | NURSING ---
PT on bag #21 and painful to her abd continues. This RN had pt stand up and try to bare down again as that is what made the clot move last time. This RN also pulled 25cc out of the balloon and immediately replaced it with an additional 5cc of sterile Saline. Anytime the aguilar is touched or manipulated pt screams out in pain. is present and states he is the patients POA and they want her to have the surgery Tuesday morning regardless. This RN called Dr. Campoverde to inform him, he is aware of all the above and that the urine in the aguilar still remains pale yellow, clear. Dr. Campoverde, still wants this RN to take aguilar out.
[2023-08-28 11:53] LABS: Bedside Glucose 308 mg/dL (74-106)
[2023-08-28] MEDS: 0.9% Saline Lock 10 ML Syringe IV ×2 (12:20→21:18)
--- NOTE | 2023-08-28 12:31 | NURSING ---
Gaspar removed by this RN at approximately 12:15pm today
--- NOTE | 2023-08-28 14:28 | NURSING ---
Pt has voided 175cc urine in measuring hat in toilet. One small pea sized bright red clot noted. Pt states she feels no pain with urination and feels like she is emptying when she urinates. Pt states when she wiped after urinating, there were 6 clots on the toilet paper after I wiped that were the size of half of a cesar. Will continue to monitor pt. Dr. Staples asked by this RN if it was still okay to give pt plavix orally. Dr. Staples said it was okay for this RN to give.
[2023-08-28 14:30] VITALS: BP 112/72; PULSE 81; RESP 18; TEMP 36.9; O2SAT 96
[2023-08-28] MEDS: Clopidogrel Bisulfate 75 MG Tablet PO (14:41)
--- NOTE | 2023-08-28 15:38 | PCM.PN.HOSP ---
Reason for Visit Reason for Visit: Diagnoses Hematuria, unspecified (08/26/23) Other retention of urine (08/26/23) [employer] (current) use of anticoagulants (08/26/23) Subjective Subjective Patient was seen and examined today, I talked with her who was in the room at the time my examination, patient's Gaspar was discontinued today, she has been able to void but she still sees small clots. Patient is reluctant to go home at this time and wants to stay until tomorrow, her states he would feel better if she stayed till tomorrow and was reevaluated in the morning. I talked briefly with urology about her care, urology stated that he would not do any procedures on her while she is hospitalized unless she had continued severe bleeding. Patient's hemoglobin yesterday morning was 10.2, I will repeat it tomorrow morning. Objective Data Objective Data Vital Signs: Vital Signs Temp Pulse Resp BP Pulse Ox O2 Del Method 98.5 F 81 18 112/72 96 Room Air 08/28/23 14:30 08/28/23 14:30 08/28/23 14:30 08/28/23 14:30 08/28/23 14:30 08/28/23 14:30 Oxygen Delivery Method Room Air Weight: 95 kg Body Mass Index (BMI) 35.7 Intake & Output: Intake and Output for Last 24 Hours 08/26/23 08/27/23 08/28/23 23:59 23:59 23:59 Intake Total 3120.0 / 3120.0 450 / 450 Output Total 1700 / 1700 33338 / 29814 3500 / 3500 Balance -1700 / -1700 -63313.0 / -92767.0 -3050 / -3050 Lab / Micro Data 08/27/23 05:45 08/27/23 05:45 Labs: Laboratory Results - last 24 hr 08/27/23 16:05: POC Glucose 252 H 08/27/23 21:18: POC Glucose 124 H 08/28/23 08:18: POC Glucose 157 H 08/28/23 11:23: POC Glucose 308 H Micro: Microbiology 08/26/23 20:40 Urine Catheter - Gaspar Urine Culture - Preliminary Gram negative jason Physical Exam Narrative alert, oriented x3 and no apparent distress General Appearance: cooperative, well kempt and well developed Orientation / Consciousness: awake, oriented to person, oriented to place and oriented to time HEENT normocephalic, head/scalp atraumatic and moist oral mucous membranes Eyes PERRL, EOMs intact bilaterally and conjunctivae normal Neck supple, no JVD, thyroid normal and no carotid bruits General: trachea midline Resp normal respiratory effort, no retractions, no use of accessory muscles and clear to auscultation bilaterally Auscultation: Negative for rales, rhonchi or wheezes Cardio regular rate, regular rhythm, S1 normal heart sound, S2 normal heart sound, no murmurs, no rub and no gallops GI normal to inspection, nondistended, normoactive bowel sounds, soft to palpation, non-tender and non-distended Extremity no clubbing, cyanosis or edema Skin no rashes or lesions noted General Skin Exam: no breakdown Neuro oriented x3, CN's II-XII intact bilaterally, no focal motor deficits and no sensory deficits noted Sensorium / Orientation: awake and alert Speech: speech normal Psych affect normal Assessment & Plan Assessment/Plan (1) Hematuria: (2) Acute urinary retention: PLAN: Plan 1. Acute hematuria with urinary retention -patient's Gaspar has been discontinued, she remains on Rocephin at this time, most likely she will need to go home on a few days of an antibiotic although I cannot verify that she has a cystitis. Patient's urine culture grew out only small amounts of a gram-negative jason. #2 type 2 diabetes-patient's blood sugars will be monitored, sliding scale insulin will be given as needed #3 acute blood loss anemia secondary to acute hematuria-patient's labs will be monitored as needed, she does not require blood transfusion at this time, H&H will be rechecked tomorrow #4 hypokalemia-patient will be given additional potassium #5 paroxysmal [id number] is on rate limiting medications, apixaban is being held #6 ischemic cardiomyopathy-her last echocardiogram showed a 45% EF, complicates care, medical course, recovery, and prognosis Total clinical time spent by myself addressing the patient's medical issues, reviewing all of her data, and collaborating with patient's care team: 35 minutes Charges/Coding Visit Charges Inpatient E&M: 07791 Subs Hosp L2
[2023-08-28 16:09] LABS: Bedside Glucose 199 mg/dL (74-106)
[2023-08-28 21:16] VITALS: BP 113/54; PULSE 93; RESP 18; TEMP 37; O2SAT 97
[2023-08-28] MEDS: Ceftriaxone 1 GM/50 ML BAG IV (21:19)
[2023-08-28] MEDS: Atorvastatin Calcium 80 MG Tablet PO (21:21)
[2023-08-28] MEDS: tiZANidine HCl 2 MG Tablet 4 MG PO (21:24)
[2023-08-28 22:31] LABS: Bedside Glucose 165 mg/dL (74-106)
[2023-08-29 05:27] VITALS: BP 126/66; PULSE 96; RESP 20; TEMP 36.8; O2SAT 95
[2023-08-29 06:00] VITALS: BMI 35.7
[2023-08-29 06:09] LABS: Hematocrit 29.5 % (37-47); Hemoglobin 9.8 g/dL (12.0-15.0)
[2023-08-29 06:34] LABS: Anion Gap 6 (5-15); BUN 7 mg/dL (7-18); BUN/Creat Ratio 8.6 RATIO (10-20); Calcium,Total 8.4 mg/dL (8.5-10.1); Chloride 110 mmol/L (98-107); Creatinine, Serum 0.81 mg/dL (0.55-1.02); EST Glomerular Filtration Rate 78 mL/min (>60); Est Glom Filt Rate - Afr Amer 95 mL/min (>60); Glucose 245 mg/dL (74-106); Magnesium 2.1 mg/dL (1.6-2.6); Phosphorus 2.8 mg/dL (2.5-4.9); Potassium 3.4 mmol/L (3.5-5.1); Sodium Level 140 mmol/L (136-145)
[2023-08-29 07:40] VITALS: O2SAT 94
[2023-08-29 08:00] VITALS: BP 103/44; PULSE 90; RESP 18; TEMP 37.1; O2SAT 94
[2023-08-29] MEDS: Methimazole 5 MG Tablet 10 MG PO (08:03)
[2023-08-29] MEDS: Carvedilol 25 MG Tablet PO (08:03)
[2023-08-29] MEDS: SACUBITRIL/VALSARTAN 97-103 MG TABLET 1 EACH PO (08:03)
[2023-08-29] MEDS: Isosorbide Mononitrate 30 MG Tablet PO (08:03)
[2023-08-29] MEDS: Furosemide 40 MG Tablet PO (08:03)
[2023-08-29] MEDS: Spironolactone 50 MG Tablet PO (08:03)
[2023-08-29] MEDS: Pantoprazole Sodium 20 MG Tablet PO (08:04)
[2023-08-29] MEDS: Insulin Lispro 100 UNIT/ML INSULN.PEN 12 UNIT SC ×2 (08:04→11:49)
[2023-08-29] MEDS: Insulin Lispro 100 UNIT/ML INSULN.PEN SC ×2 (08:04→11:49)
[2023-08-29] MEDS: Clopidogrel Bisulfate 75 MG Tablet PO (08:04)
[2023-08-29] MEDS: Nystatin Powder 15gm Bottle 1 APPLIC TOPICAL (08:11)
[2023-08-29] MEDS: Potassium Chloride Oral Tablet 20 MEQ 60 MEQ PO (08:11)
[2023-08-29] MEDS: Insulin Glargine-YFGN 100 UNIT/ML Pen 30 UNIT SC (08:12)
[2023-08-29 08:26] LABS: Bedside Glucose 276 mg/dL (74-106)
--- NOTE | 2023-08-29 11:49 | PCM.DC.SUM ---
Providers Date of Admission: 08/26/23 Primary Care Physician: Dr. Margo Tatum, Consultations 08/26/23 23:48 Consult: Urology Routine Consulting Provider: Emiliano Campoverde Reason for Consult: Urinary retention, hematuria EMERGENT Consult: No MD Notified: Yes Date Notified: 08/26/23 Time Notified: 22:42 Method of Notification: ED Physician Initiated Reason For Visit: hematuria, URINARY RETENTION, ?UTI Diagnosis Discharge Diagnosis (1) Hematuria: Status: Acute Code(s): R31.9 - Hematuria, unspecified (2) Acute urinary retention: Status: Acute Code(s): R33.8 - Other retention of urine Medications at Discharge Home Medications hydroxyzine HCl 25 mg tablet 25 - 50 mg PO QHS PRN anxiety 02/24/22 melatonin 10 mg tablet 10 mg PO HS PRN Insomnia 02/24/22 BD Ultra-Fine [place] Pen Needle 32 gauge x 5/32 (pen needle, diabetic) #100 ea 07/29/22 diphenhydramine HCl 25 mg tablet 25 mg PO Q4H PRN PRN Allergy Symptoms 08/06/22 hydrocodone-acetaminophen 5-325mg 5mg-325mg 1 tab PO DAILY Check with primary doctor 08/06/22 naloxegol 25 mg tablet (Movantik) 25 mg PO QAM Check with primary doctor 08/06/22 omeprazole magnesium 20 mg tablet,delayed release (Prilosec OTC) 20 mg PO DAILY Check with primary doctor 08/06/22 promethazine 25 mg tablet 25 mg PO TID PRN PRN Nausea And Vomiting 08/06/22 tizanidine 4 mg tablet 4 mg PO QHS 08/06/22 dapagliflozin propanediol 10 mg tablet (Farxiga) 10 mg PO DAILY 10/20/22 ibuprofen 200 mg tablet 200 mg PO Q6H PRN fever or pain 10/20/22 insulin glargine 100 unit/mL (3 mL) subcutaneous pen (Lantus Solostar U-100 Insulin) 23 unit subcut DAILY Check with primary doctor 10/20/22 insulin lispro 100 unit/mL subcutaneous pen (Humalog KwikPen (U-100) Insulin) 12 unit subcut TIDCM Check with primary doctor 10/20/22 sacubitril 97 mg-valsartan 103 mg tablet (Entresto) 1 tab PO BID 10/20/22 flash glucose sensor (FreeStyle Sanam 2 Sensor kit) #2 ea 03/02/23 cholecalciferol (vitamin D3) 50 mcg (2,000 unit) capsule 1,000 unit PO DAILY 03/08/23 spironolactone 50 mg tablet 50 mg PO DAILY #90 tabs 03/08/23 carvedilol 25 mg tablet 25 mg PO BID Check with primary doctor #180 tabs 03/10/23 glipizide 10 mg tablet, extended release 24 hr 10 mg PO BID diabetes #180 tabs 03/14/23 methimazole 10 mg tablet 10 mg PO DAILY #90 tabs 03/14/23 clopidogrel 75 mg tablet (Plavix) 75 mg PO DAILY #90 tabs 05/16/23 apixaban 5 mg tablet (Eliquis) See Rx Instructions .Route .COMPLEX #180 tabs 05/31/23 atorvastatin 80 mg tablet See Rx Instructions .Route .COMPLEX #360 TABLETS 06/09/23 isosorbide mononitrate 30 mg tablet,extended release 24 hr See Rx Instructions .Route .COMPLEX #360 TABLETS 06/09/23 furosemide 40 mg tablet See Rx Instructions .Route .COMPLEX #90 TABLETS 07/04/23 dulaglutide 1.5 mg/0.5 mL subcutaneous pen injector (Trulicity) 1.5 mg (0.5 mL) subcut QWEEK #2 mL 08/11/23 flash glucose scanning reader (FreeStyle Sanam 2 [place]) #1 ea 08/11/23 Hospital Course Operations None Procedures - (CT abdomen and pelvis) Summary of Care Provided Minutes Spent on Discharge: 39 Hospital Course: Mrs. Quiros is a 52-year-old obese, white female who presented to the emergency department at [facility] on 08/26/2023 with significant hematuria throughout the day on presentation with notable blood clots. She also had acute onset of urinary retention and when she forced urine out she passed smaller blood clots. She denied any dysuria on presentation but is anticoagulated and on antiplatelet therapy with Xarelto and Plavix respectively. She is on the Xarelto for paroxysmal atrial fibrillation and on the Plavix for history of coronary disease with LAD stent placement in 2020. She does have a history of tobacco abuse. On presentation the emergency department her overall vital signs were fairly unremarkable. She had a normal white count with a hemoglobin of 12.4 and a normal platelet count. Her BMP was unremarkable other than mild hypokalemia with a potassium of 3.1 and this was replaced. Her urinalysis was not consistent with infection her urine was cultured and she was started on ceftriaxone. A CT of the abdomen pelvis was performed and showed diffuse bladder wall thickening and pericecal fat stranding that was thought may be related to cystitis and possible asymmetric thickening of the right posterior lateral bladder wall along with nonobstructive calculi in the right pole of the right kidney. She was given medicine for pain in the emergency department and the case was discussed with Dr. Campoverde. She was evaluated by urology and she was placed on continuous bladder irrigation. Her urine slowly cleared and voiding trial was initiated on 08/28/2023. She still was passing clots after the Gaspar was removed but by the day of discharge on 08/29/2023 she no longer had any clots passing. Her Plavix and Xarelto were held on admission. Urine culture showed E. coli and alpha hemolytic strep organism however colony counts were less than 1000 CFU's per mL indicating bacteria without active infection so antibiotics were discontinued. The patient was feeling much better and anxious for discharge. She was frustrated with Dr. Campoverde and asked if she for good follow-up as an outpatient with a different urologist. I discussed the case with Dr. Short and she indicated she was happy to see her in the office next week for further workup but indicated that if there was a malignancy she would need referral to a different urologist. This was explained to the patient and she wanted to continue outpatient follow-up with Dr. Short. I also discussed the case with Dr. Campoverde with regards to her anticoagulation. He recommended that we hold her Xarelto and Plavix for the next 5 days and restart them on 09/04/2023. This was placed in the patient's discharge instructions. She was instructed to call the urology office of Dr. Short either later today or tomorrow to set up an appointment for next week and to see her primary care physician within the next month. I do anticipate she will need an outpatient cystoscopy. Malignancy will need to be ruled out with her history of tobacco abuse and gross hematuria postmenopausally. Hemoglobin was reassessed prior to discharge and was stable at 9.8 with a.m. lab and 9.76 hours later. No new medications were started. She was discharged home in stable condition on 08/29/2023. Discharge diagnoses: Gross hematuria Abnormal CT of the abdomen pelvis with regards to the bladder Acute blood loss anemia secondary to hematuria Hypokalemia-replaced DM-2 History of ischemic cardiomyopathy status post cardiac 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 with [employer]-D CAD HTN HPL PAF History of hypothyroidism Chronic left bundle branch block COPD History of tobacco abuse History of nephrolithiasis Obesity Physical Exam Narrative Hematuria and passing clots has stopped since last evening. Patient states she is anxious to go home. Does not want to follow-up with Dr. Campoverde and states that he was rude to her and disrespected her. Const alert, oriented x3, no apparent distress, no limitations, healthy appearing and well nourished; Negative for average body habitus Constitutional Narrative: Obese, middle-aged, white female, walking around the room independently, appears comfortable nontoxic General Appearance: cooperative, comfortable, well kempt and well developed Orientation / Consciousness: awake, oriented to person, oriented to place and oriented to time Exam Limitations: no limitations Nutritional Appearance: morbidly obese HEENT normocephalic, head/scalp atraumatic, hearing grossly normal bilaterally and moist oral mucous membranes HEENT Narrative: Mallampati 3-4, no thrush, dentition is fair Eyes PERRL and EOMs intact bilaterally Eyes Narrative: No scleral icterus Neck no lymphadenopathy and supple Neck Narrative: Neck is short and thick, trachea is midline Resp normal respiratory effort, no retractions, no use of accessory muscles and clear to auscultation bilaterally Resp Narrative: Diminished but clear Auscultation: Negative for rales, rhonchi or wheezes Cardio regular rate, regular rhythm, S1 normal heart sound, S2 normal heart sound, no murmurs, no rub, no gallops and no clicks GI normal to inspection, nondistended, normoactive bowel sounds, soft to palpation and non-tender Extremity no clubbing, cyanosis or edema Extremity Narrative: Pedal pulses and radial pulses are 2+ Skin no rashes or lesions noted, no wounds, skin turgor normal and no jaundice Skin Narrative: Multiple tattoos Neuro oriented x3, CN's II-XII intact bilaterally, moves all extremities and no focal motor deficits Neuro Narrative: Ambulates independently with normal gait pattern Speech: speech normal Psych affect normal Psych Narrative: Very pleasant, eye contact is good, patient interacts appropriately Weight / BMI Weight Weight: 95 kg Body Mass Index (BMI) 35.7 ABG / Lab / Microbiology Data 08/29/23 05:40 08/29/23 05:40 Laboratory: Laboratory Results - last 24 hr 08/26/23 20:40: Urine Color Red, Urine Clarity Turbid, Urine pH 7.0, Ur Specific [place] 1.010, Urine Protein 500 H, Urine Glucose (UA) 250 H, Urine Ketones Negative, Urine Occult Blood 150 H, Urine Nitrite Negative, Urine Bilirubin Negative, Urine Urobilinogen Normal, Ur Leukocyte Esterase Negative, Urine RBC > 100 SEEN, Urine WBC 0 SEEN, Ur Squamous Epith Cells 0 SEEN, Urine Bacteria 2+, Urine Mucus 0 SEEN 08/28/23 11:23: POC Glucose 308 H 08/28/23 15:50: POC Glucose 199 H 08/28/23 21:17: POC Glucose 165 H 08/29/23 05:40: Hgb 9.8 L, Hct 29.5 L, Sodium 140, Potassium 3.4 L, Chloride 110 H, Carbon Dioxide 24.0, Anion Gap 6, BUN 7, Creatinine 0.81, Estim Creat Clear Calc 89.80, Est GFR (MDRD) Af Amer 95, Est GFR (MDRD) Non-Af 78, BUN/Creatinine Ratio 8.6 L, Glucose 245 H, Calcium 8.4 L, Phosphorus 2.8, Magnesium 2.1 08/29/23 07:45: POC Glucose 276 H Microbiology: Microbiology 08/26/23 20:40 Urine Catheter - Gaspar Urine Culture - Preliminary Escherichia coli Alpha hemolytic organism D/C Instructions Discharge Diet: Low fat / Low cholesterol and 1800 Calorie Control Diet Discharge Activity: Return to Normal Activity Return to work on: 08/30/23 May resume sexual activity in: 10-14 days Meaningful Use Info Meaningful Use Diagnoses (Choose all that apply): None applicable Discharge Plan Admission Admit Date/Time: 08/26/23 22:37 Primary Reason for Your Visit: Gross Hematuria Attending Provider: Damaris Thibodeaux Primary Care Provider: Margo Tatum Consulting Providers: Emiliano Campoverde; Perlita Gómez; Aidan Staples Instructions Additional Instructions / Restrictions: 1. Please hold both your Xarelto and Plavix for 5 days and restart them on 09/04/[address] Short's office either later today or tomorrow for further workup of the blood in your urine as an outpatient 3. Return to the emergency department if bleeding restarts Discharge Orders/Prescriptions Prescriptions: Continued insulin glargine [Lantus Solostar U-100 Insulin] 100 unit/mL (3 mL) insulin pen 23 unit subcut DAILY melatonin 10 mg tablet 10 mg PO HS PRN (Reason: Insomnia) hydroxyzine HCl 25 mg tablet 25 - 50 mg PO QHS PRN (Reason: anxiety) spironolactone 50 mg tablet 50 mg PO DAILY Qty: 90 12RF Farxiga 10 mg tablet 10 mg PO DAILY Entresto 97-103 mg tablet 1 tab PO BID (DME) FreeStyle Sanam 2 [place] Misc See Rx Instructions .Route Qty: 1 0RF Rx Instructions: As directed Trulicity 1.5 mg/0.5 mL pen injector 1.5 mg subcut QWEEK Qty: 2 3RF tizanidine 4 mg tablet 4 mg PO QHS Patient Comments: take 1 tablet by mouth every evening diphenhydramine HCl 25 mg Tablet 25 mg PO Q4H PRN PRN (Reason: Allergy Symptoms) promethazine 25 mg tablet 25 mg PO TID PRN PRN (Reason: Nausea And Vomiting) Patient Comments: take 1 tablet by mouth three times a day if needed for nausea and vomiting hydrocodone-acetaminophen 5-325 mg tablet 1 tab PO DAILY omeprazole magnesium [Prilosec OTC] 20 mg tablet,delayed release (DR/EC) 20 mg PO DAILY Movantik 25 mg tablet 25 mg PO QAM Rx Instructions: must be taken on empty stomach; no food 1 hr after or 2-3 hrs before dose insulin lispro [Humalog KwikPen Insulin] 100 unit/mL insulin pen 12 unit subcut TIDCM (DME) pen needle, diabetic [BD Ultra-Fine [place] Pen Needle] 32 gauge x 5/32 needle See Rx Instructions .Route Qty: 100 5RF Rx Instructions: 4x/day (DME) FreeStyle Sanam 2 Sensor Kit See Rx Instructions .Route Qty: 2 5RF Rx Instructions: 1 sensor q 14 days cholecalciferol (vitamin D3) 50 mcg (2,000 unit) capsule 1,000 unit PO DAILY carvedilol 25 mg tablet 25 mg PO BID Qty: 180 3RF Rx Instructions: must administer with a meal/food glipizide 10 mg tablet extended release 24hr 10 mg PO BID Qty: 180 1RF methimazole 10 mg tablet 10 mg PO DAILY Qty: 90 1RF atorvastatin 80 mg tablet See Rx Instructions .ROUTE .COMPLEX Qty: 360 0RF Dose Instruction: take 1 tablet by mouth at bedtime Rx Instructions: take 1 tablet by mouth at bedtime isosorbide mononitrate 30 mg tablet extended release 24 hr See Rx Instructions .ROUTE .COMPLEX Qty: 360 0RF Dose Instruction: take 1 tablet by mouth once daily Rx Instructions: take 1 tablet by mouth once daily furosemide 40 mg tablet See Rx Instructions .ROUTE .COMPLEX Qty: 90 3RF Dose Instruction: take 1 tablet by mouth once daily Rx Instructions: take 1 tablet by mouth once daily Held ibuprofen 200 mg tablet 200 mg PO Q6H PRN (Reason: fever or pain) Hold Instructions: until after you see Dr. Short clopidogrel [Plavix] 75 mg tablet 75 mg PO DAILY Qty: 90 3RF Hold Instructions: Resume on 09/04/23. Eliquis 5 mg tablet See Rx Instructions .ROUTE .COMPLEX Qty: 180 3RF Hold Instructions: Resume on 09/04/23. Dose Instruction: take 1 tablet by mouth twice a day Rx Instructions: take 1 tablet by mouth twice a day Referrals / Follow Up: Berenice Short MD [Med Staff - Active Staff] - Within 1 Week (Call office either later today or tomorrow to set up an appointment. Tell them the you are in the hospital with blood in your urine and the hospital doctor talk to Dr. Short about this appointment) Margo Tatum DO [Primary Care Provider] - Within 1 Month Disposition Disposition (needs filled in before D/C Order can be placed): Home, Self Care Charges/Coding Visit Charges Inpatient E&M: 75651 Disch Hosp >30min
[2023-08-29 11:57] LABS: Hemoglobin 9.7 g/dL (12.0-15.0)
--- NOTE | 2023-08-29 12:08 | PHA.DC_ITS ---
Pharmacy [place] Med Reconciliation Pharmacy Service has performed discharge medication reconciliation for this patient. The patient's discharge medication list was reviewed for discrepancies and discrepancies were resolved. Medications at Discharge Home Medications hydroxyzine HCl 25 mg tablet 25 - 50 mg PO QHS PRN anxiety 02/24/22 melatonin 10 mg tablet 10 mg PO HS PRN Insomnia 02/24/22 BD Ultra-Fine [place] Pen Needle 32 gauge x 5/32 (pen needle, diabetic) #100 ea 07/29/22 diphenhydramine HCl 25 mg tablet 25 mg PO Q4H PRN PRN Allergy Symptoms 08/06/22 hydrocodone-acetaminophen 5-325mg 5mg-325mg 1 tab PO DAILY Check with primary doctor 08/06/22 naloxegol 25 mg tablet (Movantik) 25 mg PO QAM Check with primary doctor 08/06/22 omeprazole magnesium 20 mg tablet,delayed release (Prilosec OTC) 20 mg PO DAILY Check with primary doctor 08/06/22 promethazine 25 mg tablet 25 mg PO TID PRN PRN Nausea And Vomiting 08/06/22 tizanidine 4 mg tablet 4 mg PO QHS 08/06/22 dapagliflozin propanediol 10 mg tablet (Farxiga) 10 mg PO DAILY 10/20/22 ibuprofen 200 mg tablet 200 mg PO Q6H PRN fever or pain 10/20/22 insulin glargine 100 unit/mL (3 mL) subcutaneous pen (Lantus Solostar U-100 Insulin) 23 unit subcut DAILY Check with primary doctor 10/20/22 insulin lispro 100 unit/mL subcutaneous pen (Humalog KwikPen (U-100) Insulin) 12 unit subcut TIDCM Check with primary doctor 10/20/22 sacubitril 97 mg-valsartan 103 mg tablet (Entresto) 1 tab PO BID 10/20/22 flash glucose sensor (FreeStyle Sanam 2 Sensor kit) #2 ea 03/02/23 cholecalciferol (vitamin D3) 50 mcg (2,000 unit) capsule 1,000 unit PO DAILY 03/08/23 spironolactone 50 mg tablet 50 mg PO DAILY #90 tabs 03/08/23 carvedilol 25 mg tablet 25 mg PO BID Check with primary doctor #180 tabs 03/10/23 glipizide 10 mg tablet, extended release 24 hr 10 mg PO BID diabetes #180 tabs 03/14/23 methimazole 10 mg tablet 10 mg PO DAILY #90 tabs 03/14/23 clopidogrel 75 mg tablet (Plavix) 75 mg PO DAILY #90 tabs 05/16/23 apixaban 5 mg tablet (Eliquis) See Rx Instructions .Route .COMPLEX #180 tabs 05/31/23 atorvastatin 80 mg tablet See Rx Instructions .Route .COMPLEX #360 TABLETS 06/09/23 isosorbide mononitrate 30 mg tablet,extended release 24 hr See Rx Instructions .Route .COMPLEX #360 TABLETS 06/09/23 furosemide 40 mg tablet See Rx Instructions .Route .COMPLEX #90 TABLETS 07/04/23 dulaglutide 1.5 mg/0.5 mL subcutaneous pen injector ([employer]) 1.5 mg (0.5 mL) subcut QWEEK #2 mL 08/11/23 flash glucose scanning reader ([employer] Sanam 2 [place]) #1 ea 08/11/23
[2023-08-29 12:10] LABS: Bedside Glucose 225 mg/dL (74-106)
[2023-08-29 15:00] VITALS: BP 101/41; PULSE 88; RESP 18; TEMP 36.9; O2SAT 97
== END 2023-08-29 15:15 | disposition home or self-care (01) | DRG 696 ==
LOC: ED 22:18 → MS3 22:58
PROVIDERS: Internal Medicine; Admitting Provider Family Medicine; Emergency Provider Emergency Medicine; PCP Family Medicine; Visit Provider Internal Medicine
DX: R31.0 Gross hematuria (principal); D62 Acute posthemorrhagic anemia; I50.22 Chronic systolic (congestive) heart failure; I11.0 Hypertensive heart disease with heart failure; E11.9 Type 2 diabetes mellitus without complications; J44.9 Chronic obstructive pulmonary disease, unspecified; I48.0 Paroxysmal atrial fibrillation; Z79.4 Long term (current) use of insulin; E05.90 Thyrotoxicosis, unspecified without thyrotoxic crisis or storm; E87.6 Hypokalemia; E78.5 Hyperlipidemia, unspecified; K21.9 Gastro-esophageal reflux disease without esophagitis; I25.5 Ischemic cardiomyopathy; I25.10 Atherosclerotic heart disease of native coronary artery without angina pectoris; I25.2 Old myocardial infarction; I44.7 Left bundle-branch block, unspecified; E66.9 Obesity, unspecified; R33.8 Other retention of urine; R93.41 Abnormal radiologic findings on diagnostic imaging of renal pelvis, ureter, or bladder; Z68.35 Body mass index [BMI] 35.0-35.9, adult; Z95.5 Presence of coronary angioplasty implant and graft; Z79.01 Long term (current) use of anticoagulants; Z79.02 Long term (current) use of antithrombotics/antiplatelets; Z79.84 Long term (current) use of oral hypoglycemic drugs; Z79.85 Long-term (current) use of injectable non-insulin antidiabetic drugs; Z79.899 Other long term (current) drug therapy; Z86.16 Personal history of COVID-19; Z87.440 Personal history of urinary (tract) infections; Z87.891 Personal history of nicotine dependence
CPT/HCPCS: 36415; 51702; 74177; 80048; 80053; 81001; 82962; 83735; 84100; 85014; 85018; 85025; 87077; 87086; 87088; 87186; 94668; 99284; J7030; Q9967; A4216; J2405

== ENCOUNTER 2023-09-06 11:42 | Inpatient (IN) | payer OTHER, MEDICARE, MEDICAID, SELFPAY ==
[2022-02-26 14:11] VITALS: BMI 35.5
[2023-09-06] VITALS (10 sets, daily range): BP systolic 107–134; BP diastolic 47–84; PULSE 78–87; RESP 12–18; TEMP 36.3–37; O2SAT 97–100; BMI 35.9
--- NOTE | 2023-09-06 11:49 | EDS_ITS ---
HPI HPI - Female History of Present Illness Chief Complaint: Vag Bleeding Detail of Chief Complaint: Gross hematuria Informant: patient Pain Pain: Negative for Pelvic Pain, Vulvar Pain or Vaginal Pain Current Severity: Mild Maximum Severity: Moderate Worsened by: Movement and [place] Relieved by: Remaining Still, NSAIDS and Tylenol Bleeding Issue: Negative for Vaginal bleeding, Passing clots or Passing tissue Associated Symptoms Associated Symptoms: Positive for Dysuria, Urgency and Hematuria; Negative for Frequency or Missed Period Last known menstrual period: Patient is status post hysterectomy 2003 [facility] Medical History Atherosclerotic heart disease of [place] coronary artery without angina pectoris Atrial fibrillation Benign hypertension Cardiomyopathy, ischemic Chronic low back pain Chronic nausea COPD (chronic obstructive pulmonary disease) Coronary artery disease COVID-19 virus infection Diabetes Difficult intubation Former smoker HFrEF (heart failure with reduced ejection fraction) Hirsutism History of non-ST elevation myocardial infarction (NSTEMI) (09/08/21) Hyperglycemia due to type 2 diabetes mellitus Hyperlipidemia Hypertension Hyperthyroidism Irregular heart beat Kidney stones Left bundle branch block (LBBB) Myocardial infarct Non-ischemic cardiomyopathy Non-ST elevation (NSTEMI) myocardial infarction Obesity Paroxysmal atrial fibrillation Presence of cardiac 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 therapy defibrillator ([employer]) Seizures Syncope Thyroid nodule Type 2 diabetes mellitus Vomiting Home Medications hydroxyzine HCl 25 mg tablet 25 - 50 mg PO QHS PRN anxiety 02/24/22 [History Last Taken Unknown] melatonin 10 mg tablet 10 mg PO HS PRN Insomnia 02/24/22 [History Last Taken Unknown] BD Ultra-Fine [place] Pen Needle 32 gauge x 5/32 (pen needle, diabetic) #100 ea 07/29/22 [Rx Last Taken Unknown] diphenhydramine HCl 25 mg tablet 25 mg PO Q4H PRN PRN Allergy Symptoms 08/06/22 [History Last Taken Unknown] hydrocodone-acetaminophen 5-325mg 5mg-325mg 1 tab PO DAILY Check with primary doctor 08/06/22 [History Last Taken 08/06/22 10:00] naloxegol 25 mg tablet (Movantik) 25 mg PO QAM Check with primary doctor 08/06/22 [History Last Taken Unknown] omeprazole magnesium 20 mg tablet,delayed release (Prilosec OTC) 20 mg PO DAILY Check with primary doctor 08/06/22 [History Last Taken Unknown] promethazine 25 mg tablet 25 mg PO TID PRN PRN Nausea And Vomiting 08/06/22 [History Last Taken Unknown] tizanidine 4 mg tablet 4 mg PO QHS 08/06/22 [History Last Taken 08/05/22] dapagliflozin propanediol 10 mg tablet (Farxiga) 10 mg PO DAILY 10/20/22 [History Last Taken Unknown] ibuprofen 200 mg tablet 200 mg PO Q6H PRN fever or pain 10/20/22 [History Last Taken Unknown] insulin glargine 100 unit/mL (3 mL) subcutaneous pen (Lantus Solostar U-100 Insulin) 23 unit subcut DAILY Check with primary doctor 10/20/22 [History Last Taken Unknown] insulin lispro 100 unit/mL subcutaneous pen (Humalog KwikPen (U-100) Insulin) 12 unit subcut TIDCM Check with primary doctor 10/20/22 [History Last Taken Unknown] sacubitril 97 mg-valsartan 103 mg tablet (Entresto) 1 tab PO BID 10/20/22 [History Last Taken Unknown] flash glucose sensor (FreeStyle Sanam 2 Sensor kit) #2 ea 03/02/23 [Rx Last Taken Unknown] cholecalciferol (vitamin D3) 50 mcg (2,000 unit) capsule 1,000 unit PO DAILY 03/08/23 [History Last Taken Unknown] spironolactone 50 mg tablet 50 mg PO DAILY #90 tabs 03/08/23 [Rx Last Taken Unknown] carvedilol 25 mg tablet 25 mg PO BID Check with primary doctor #180 tabs 03/10/23 [Rx Last Taken Unknown] glipizide 10 mg tablet, extended release 24 hr 10 mg PO BID diabetes #180 tabs 03/14/23 [Rx Last Taken Unknown] methimazole 10 mg tablet 10 mg PO DAILY #90 tabs 03/14/23 [Rx Last Taken Unknown] clopidogrel 75 mg tablet (Plavix) 75 mg PO DAILY #90 tabs 05/16/23 [Rx Last Taken Unknown] apixaban 5 mg tablet (Eliquis) See Rx Instructions .Route .COMPLEX #180 tabs 05/31/23 [Rx Last Taken Unknown] atorvastatin 80 mg tablet See Rx Instructions .Route .COMPLEX #360 TABLETS 06/09/23 [Rx Last Taken Unknown] isosorbide mononitrate 30 mg tablet,extended release 24 hr See Rx Instructions .Route .COMPLEX #360 TABLETS 06/09/23 [Rx Last Taken Unknown] furosemide 40 mg tablet See Rx Instructions .Route .COMPLEX #90 TABLETS 07/04/23 [Rx Last Taken Unknown] dulaglutide 1.5 mg/0.5 mL subcutaneous pen injector (Trulicity) 1.5 mg (0.5 mL) subcut QWEEK #2 mL 08/11/23 [Rx Last Taken Unknown] flash glucose scanning reader ([employer] Sanam 2 [place]) #1 ea 08/11/23 [Rx Last Taken Unknown] Allergy/AdvReac Type Severity Reaction Status Date / Time amoxicillin trihydrate AdvReac Vomiting Verified 09/06/23 11:43 [From Augmentin] potassium clavulanate AdvReac Vomiting Verified 09/06/23 11:43 [From Augmentin] Family History Father Myocardial infarction Cancer prostate, leukemia Agent orange exposure Diabetes Sister Diabetes COPD (chronic obstructive pulmonary disease) Mother CVA (cerebral vascular accident) Hypertension Surgical History History of appendectomy History of back surgery History of cholecystectomy (1991) History of cholecystectomy History of coronary artery stent placement (05/19/21) History of hysterectomy History of laparoscopy History of left heart catheterization (09/14/21) History of tonsillectomy Status post insertion of nerve stimulator Social History household members: significant other Smoking Status: Former smoker how long ago did patient quit smoking: Quit 1990, smoke 2 ppd since teen until quit. alcohol intake: current alcohol intake frequency: holidays/special occasions only substance use type: does not use caffeine: Yes ROS ROS ED Constitutional Constitutional ED: Denies chills, fever(s), subjective or sweats Eyes Eyes: Denies blurry vision, change in vision or diplopia Cardiovascular Cardiovascular: Denies chest pain, orthopnea, palpitations or paroxysmal noctur nal dyspnea Respiratory/Chest Respiratory/Chest: Denies cough, dyspnea, dyspnea on exertion, orthopnea or paroxysmal nocturnal dyspnea Gastrointestinal Gastrointestinal: Reports abdominal pain; Denies diarrhea, melena, nausea or vomiting Genitourinary Genitourinary ED: Reports hematuria and urinary frequency; Denies dysuria Musculoskeletal Musculoskeletal: Denies arthralgias, myalgias or neck pain Integumentary Denies rash Neurologic Neurologic: Denies headache(s) or paresthesias Hematologic/Lymphatic Hematologic/Lymphatic: Reports easy bleeding and easy bruising EXAM Physical Exam Const Vital Signs: 09/06/23 11:42 09/06/23 12:53 09/06/23 13:30 Temperature 97.3 F L Temperature Source Temporal Pulse Rate 87 83 83 Respiratory Rate 14 14 14 Blood Pressure 134/84 H 112/47 L 113/67 Blood Pressure Mean 100 68 82 Pulse Ox 99 100 100 Oxygen Delivery Method Room Air Room Air Room Air Positive well nourished, well developed and obese General Appearance ED: well developed and NAD Nutritional Appearance: obese HEENT Reports TM's clear and moist mucous membranes HEENT Narrative: Head is atraumatic and normocephalic. Tympanic Membrane ED: Yes TM's clear Eyes PERRL and EOMs intact bilaterally General Eye ED: Negative for pale conjunctiva or scleral icterus Neck no lymphadenopathy, supple and no JVD Resp normal respiratory effort and clear to auscultation bilaterally Cardio regular rate, regular rhythm, S1 normal heart sound, no murmurs and no JVD GI normal to inspection, nondistended, normoactive bowel sounds, soft to palpation, non-tender, non-distended and no masses Back/Spine no CVA tenderness Extremity normal to inspection and full ROM Neuro oriented x3, CN's II-XII intact bilaterally and no sensory deficits noted Sensorium / Orientation: alert Motor Exam: strength 5/5 throughout Psych mental status grossly normal Skin no rashes or lesions noted and no wounds MDM MDM MDM Narrative Medical decision making narrative: History is remarked for gross hematuria. This may be due to the fact that she is on Plavix and Eliquis. UA was obtained. CBC to assess H&H compared to recent admission. She states she was seen by urology. She prefers not to follow-up with that urologist because of her interaction. History & Record Review Additional record(s) reviewed:: Prior inpatient record, Prior ED visit and Prior labs Lab Data Attestation: I reviewed the patient's lab results. Lab results narrative: CBC is remarkable for anemia. Indices are unremarkable. Basic metabolic panel reveals slight elevation of chloride and glucose of 110 and 169 respectively. BUN to creatinine ratio is elevated at 35-1. CO2 is slightly diminished with a normal anion gap. Urinalysis is turbid red in appearance. Macro is positive for protein, glucose and occult blood. Micro is remarkable for 100 RBCs. There is no WBCs or bacteria seen. Labs: Laboratory Results - last 24 hr 09/06/23 09/06/23 12:30 12:40 WBC 7.0 RBC 3.17 L Hgb 10.2 L Hct 31.1 L MCV 98.1 MCH 32.2 H MCHC 32.8 RDW Std Deviation 51.8 H RDW Coeff of Tomi 14.8 H Plt Count 220 MPV 9.8 Immature Gran % (Auto) 0.300 Neut % (Auto) 66.9 Lymph % (Auto) 24.9 [place] % (Auto) 7.2 Eos % (Auto) 0.6 Baso % (Auto) 0.1 Absolute Neuts (auto) 4.7 Absolute Lymphs (auto) 1.73 Nucleated RBC % 0 Sodium 137 Potassium 3.9 Chloride 110 H Carbon Dioxide 20.0 L Anion Gap 7 BUN 30 H Creatinine 0.84 Estim Creat Clear Calc 86.50 Est GFR (MDRD) Af Amer 90 Est GFR (MDRD) Non-Af 75 BUN/Creatinine Ratio 35.5 H Glucose 169 H Calcium 8.5 Urine Color Red Urine Clarity Turbid Urine pH 7.0 Ur Specific [place] 1.010 Urine Protein 500 H Urine Glucose (UA) 250 H Urine Ketones Negative Urine Occult Blood 250 H Urine Nitrite Negative Urine Bilirubin Negative Urine Urobilinogen Normal Ur Leukocyte Esterase Negative Urine RBC 50-100 SEEN Urine WBC 0 SEEN Ur Squamous Epith Cells 0 SEEN Urine Bacteria 0 SEEN Urine Mucus 0 SEEN Discharge Plan Triage Chief Complaint: Vag Bleeding ED Provider: Terry Arzate Dx/Rx/DC Orders Prescriptions: No Action insulin glargine [Lantus Solostar U-100 Insulin] 100 unit/mL (3 mL) insulin pen 23 unit subcut DAILY melatonin 10 mg tablet 10 mg PO HS PRN (Reason: Insomnia) hydroxyzine HCl 25 mg tablet 25 - 50 mg PO QHS PRN (Reason: anxiety) spironolactone 50 mg tablet 50 mg PO DAILY Qty: 90 12RF Farxiga 10 mg tablet 10 mg PO DAILY Entresto 97-103 mg tablet 1 tab PO BID ibuprofen 200 mg tablet 200 mg PO Q6H PRN (Reason: fever or pain) Hold Instructions: until after you see Dr. Short ([facility] [place]) FreeStyle Sanam 2 [place] Mis See Rx Instructions .Route Qty: 1 0RF Rx Instructions: As directed Trulicity 1.5 mg/0.5 mL pen injector 1.5 mg subcut QWEEK Qty: 2 3RF tizanidine 4 mg tablet 4 mg PO QHS Patient Comments: take 1 tablet by mouth every evening diphenhydramine HCl 25 mg Tablet 25 mg PO Q4H PRN PRN (Reason: Allergy Symptoms) promethazine 25 mg tablet 25 mg PO TID PRN PRN (Reason: Nausea And Vomiting) Patient Comments: take 1 tablet by mouth three times a day if needed for nausea and vomiting hydrocodone-acetaminophen 5-325 mg tablet 1 tab PO DAILY omeprazole magnesium [Prilosec OTC] 20 mg tablet,delayed release (DR/EC) 20 mg PO DAILY Movantik 25 mg tablet 25 mg PO QAM Rx Instructions: must be taken on empty stomach; no food 1 hr after or 2-3 hrs before dose insulin lispro [Humalog KwikPen Insulin] 100 unit/mL insulin pen 12 unit subcut TIDCM ([facility] [place] [facility]) pen needle, diabetic [BD Ultra-Fine [place] Pen Needle] 32 gauge x 5/32 needle See Rx Instructions .Route Qty: 100 5RF Rx Instructions: 4x/day ([facility] [place] [facility]) FreeStyle Sanam 2 Sensor Kit See Rx Instructions .Route Qty: 2 5RF Rx Instructions: 1 sensor q 14 days cholecalciferol (vitamin D3) 50 mcg (2,000 unit) capsule 1,000 unit PO DAILY carvedilol 25 mg tablet 25 mg PO BID Qty: 180 3RF Rx Instructions: must administer with a meal/food glipizide 10 mg tablet extended release 24hr 10 mg PO BID Qty: 180 1RF methimazole 10 mg tablet 10 mg PO DAILY Qty: 90 1RF clopidogrel [Plavix] 75 mg tablet 75 mg PO DAILY Qty: 90 3RF Hold Instructions: Resume on 09/04/23. Eliquis 5 mg tablet See Rx Instructions .ROUTE .COMPLEX Qty: 180 3RF Hold Instructions: Resume on 09/04/23. Dose Instruction: take 1 tablet by mouth twice a day Rx Instructions: take 1 tablet by mouth twice a day atorvastatin 80 mg tablet See Rx Instructions .ROUTE .COMPLEX Qty: 360 0RF Dose Instruction: take 1 tablet by mouth at bedtime Rx Instructions: take 1 tablet by mouth at bedtime isosorbide mononitrate 30 mg tablet extended release 24 hr See Rx Instructions .ROUTE .COMPLEX Qty: 360 0RF Dose Instruction: take 1 tablet by mouth once daily Rx Instructions: take 1 tablet by mouth once daily furosemide 40 mg tablet See Rx Instructions .ROUTE .COMPLEX Qty: 90 3RF Dose Instruction: take 1 tablet by mouth once daily Rx Instructions: take 1 tablet by mouth once daily Primary Care Provider: Margo Tatum Referrals: Margo Tatum DO [Primary Care Provider] -
[2023-09-06 12:45] LABS: Bacteria 0 SEEN /hpf (None Seen); Mucous, Urine 0 SEEN /hpf (<or=2+); Squamous Epithelial Cells - UA 0 SEEN /hpf (5-10); White Blood Cells 0 SEEN /hpf (0-5)
[2023-09-06 12:49] LABS: Absolute Lymphocyte Count 1.73 X10^3/uL (0.83-4.51); Absolute Neutrophil Count 4.7 X10^3/uL (2.0-7.7); Basophil# 0.01 X10^3/uL; Basophil% 0.1 % (0-1); Eosinophil# 0.04 X10^3/uL; Eosinophils% 0.6 % (0-5); Hematocrit 31.1 % (37-47); Hemoglobin 10.2 g/dL (12.0-15.0); Lymphocyte # 1.73 X10^3/ul (0.83-4.51); Lymphocyte % 24.9 % (19-41); Mean Corp Hgb Conc 32.8 g/dL (32-36); Mean Corpuscular Hgb 32.2 pg (27.0-32.0); Mean Corpuscular Volume 98.1 fL (81-99); Mean Platelet Vol. 9.8 fl (6.2-12.0); Monocyte% 7.2 % (0-10); NRBC Flagged by Analyzer 0 % (0-5); Neutrophil # 4.65 X10^3/uL (2.7-7.7); Neutrophil % 66.9 % (47-70); Platelet Count 220 K/mm3 (150-450); RBC Distribution Width CV 14.8 % (11.6-14.6); RBC Distribution Width SD 51.8 fl (35.1-43.9); Red Blood Count 3.17 M/mm3 (4.2-5.4)
[2023-09-06 12:53] LABS: Color, Urine Red (Yellow); Glucose, Dipstick 250 mg/dl (Normal); Ketone-Dipstick Negative (Negative); Leukocyte Esterase-Dipstick Negative /ul (Negative); Nitrite-Dipstick Negative (Negative); Occult Blood-Urine 250 /ul (Negative); Protein-Dipstick 500 mg/dl (Negative); Urine Bilirubin Dipstick Negative (Negative); Urine Clarity Turbid (Clear); Urine Urobilinogen Normal (Normal)
[2023-09-06 12:57] LABS: Anion Gap 7 (5-15); BUN 30 mg/dL (7-18); BUN/Creat Ratio 35.5 RATIO (10-20); Calcium,Total 8.5 mg/dL (8.5-10.1); Chloride 110 mmol/L (98-107); Creatinine, Serum 0.84 mg/dL (0.55-1.02); EST Glomerular Filtration Rate 75 mL/min (>60); Est Glom Filt Rate - Afr Amer 90 mL/min (>60); Glucose 169 mg/dL (74-106); Potassium 3.9 mmol/L (3.5-5.1); Sodium Level 137 mmol/L (136-145)
[2023-09-06 13:03] LABS: Red Blood Cells-Urine 50-100 SEEN /hpf (0-5)
[2023-09-06] MEDS: Lidocaine Jelly 2% 20 ML Syringe (URO-JET) 1 APPLIC TOPICAL (13:29)
--- NOTE | 2023-09-06 15:01 | NURSING ---
MED SURG ESTHELA GROSS HEMATURIA
--- NOTE | 2023-09-06 16:37 | PCM.HP.STD ---
[facility] - General General Date of Admission: 09/06/23 Date of Service: 09/06/23 Chief Complaint: Sudden onset of hematuria today in the morning. HPI Narrative PITO CLARK, is a 52 F who was recently admitted between 08/25 to 08/28 for hematuria with urine retention came back with similar problem sudden onset of hematuria in the morning today. In the triage note it is wrongly mentioned vaginal bleeding but patient had hysterectomy in 2003 and denies vaginal bleeding. Patient is stated that she had stefani dark red blood in the morning today. She denies burning pain but he states he feels pressure over suprapubic region. Increases with movement of the catheter. Patient is states he has been passing blood clots and probably pain increases with passing clots. Patient was seen by urologist Dr. Campoverde but she does not want to see him and requested a different urologist therefore Dr. Short consulted. Patient has triple-lumen Gaspar catheter. Patient is on Plavix and Eliquis. UA shows 50-100 cells but no WBC. Negative nitrite and leukocyte esterase. H&H 10.2/31% which is further [facility] Medical History Atherosclerotic heart disease of [place] coronary artery without angina pectoris Atrial fibrillation Benign hypertension Cardiomyopathy, ischemic Chronic low back pain Chronic nausea COPD (chronic obstructive pulmonary disease) Coronary artery disease COVID-19 virus infection Diabetes Difficult intubation Former smoker HFrEF (heart failure with reduced ejection fraction) Hirsutism History of non-ST elevation myocardial infarction (NSTEMI) (09/08/21) Hyperglycemia due to type 2 diabetes mellitus Hyperlipidemia Hypertension Hyperthyroidism Irregular heart beat Kidney stones Left bundle branch block (LBBB) Myocardial infarct Non-ischemic cardiomyopathy Non-ST elevation (NSTEMI) myocardial infarction Obesity Paroxysmal atrial fibrillation Presence of cardiac 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 therapy defibrillator (INDEPENDENT CONTRACTOR-D) Seizures Syncope Thyroid nodule Type 2 diabetes mellitus Vomiting Home Medications BD Ultra-Fine [place] Pen Needle 32 gauge x (pen needle, diabetic) #100 ea 07/29/22 [Rx Last Taken Unknown] diphenhydramine HCl 25 mg tablet 25 mg PO Q4H PRN PRN Allergy Symptoms 08/06/22 [History Last Taken Unknown] hydrocodone-acetaminophen 5-325mg 5mg-325mg 1 tab PO Q8H PRN Check with primary doctor 08/06/22 [History Last Taken 08/06/22 10:00] naloxegol 25 mg tablet (Movantik) 25 mg PO QAM PRN Check with primary doctor 08/06/22 [History Last Taken Unknown] omeprazole magnesium 20 mg tablet,delayed release (Prilosec OTC) 20 mg PO DAILY Check with primary doctor 08/06/22 [History Last Taken Unknown] promethazine 25 mg tablet 25 mg PO TID PRN PRN Nausea And Vomiting 08/06/22 [History Last Taken Unknown] tizanidine 4 mg tablet 4 mg PO QHS 08/06/22 [History Last Taken 08/05/22] dapagliflozin propanediol 10 mg tablet (Farxiga) 10 mg PO DAILY 10/20/22 [History Last Taken Unknown] ibuprofen 200 mg tablet 200 mg PO Q6H PRN fever or pain 10/20/22 [History Last Taken Unknown] insulin glargine 100 unit/mL (3 mL) subcutaneous pen (Lantus Solostar U-100 Insulin) 30 unit subcut DAILY Check with primary doctor 10/20/22 [History Last Taken Unknown] insulin lispro 100 unit/mL subcutaneous pen (Humalog KwikPen (U-100) Insulin) 14 unit subcut TIDCM Check with primary doctor 10/20/22 [History Last Taken Unknown] sacubitril 97 mg-valsartan 103 mg tablet (Entresto) 1 tab PO BID 10/20/22 [History Last Taken Unknown] flash glucose sensor (FreeStyle Sanam 2 Sensor kit) #2 ea 03/02/23 [Rx Last Taken Unknown] cholecalciferol (vitamin D3) 50 mcg (2,000 unit) capsule 1,000 unit PO DAILY 03/08/23 [History Last Taken Unknown] spironolactone 50 mg tablet 50 mg PO DAILY #90 tabs 03/08/23 [Rx Last Taken Unknown] carvedilol 25 mg tablet 25 mg PO BID Check with primary doctor #180 tabs 03/10/23 [Rx Last Taken Unknown] glipizide 10 mg tablet, extended release 24 hr 10 mg PO BID diabetes #180 tabs 03/14/23 [Rx Last Taken Unknown] methimazole 10 mg tablet 10 mg PO DAILY #90 tabs 03/14/23 [Rx Last Taken Unknown] clopidogrel 75 mg tablet (Plavix) 75 mg PO DAILY #90 tabs 05/16/23 [Rx Last Taken Unknown] apixaban 5 mg tablet (Eliquis) See Rx Instructions .Route .COMPLEX #180 tabs 05/31/23 [Rx Last Taken Unknown] atorvastatin 80 mg tablet See Rx Instructions .Route .COMPLEX #360 TABLETS 06/09/23 [Rx Last Taken Unknown] isosorbide mononitrate 30 mg tablet,extended release 24 hr See Rx Instructions .Route .COMPLEX #360 TABLETS 06/09/23 [Rx Last Taken Unknown] furosemide 40 mg tablet See Rx Instructions .Route .COMPLEX #90 TABLETS 07/04/23 [Rx Last Taken Unknown] dulaglutide 1.5 mg/0.5 mL subcutaneous pen injector (Trulicity) 1.5 mg (0.5 mL) subcut QWEEK #2 mL 08/11/23 [Rx Last Taken Unknown] flash glucose scanning reader (MapMyID Sanam 2 [place]) #1 ea 08/11/23 [Rx Last Taken Unknown] Allergy/AdvReac Type Severity Reaction Status Date / Time amoxicillin trihydrate AdvReac Vomiting Verified 09/06/23 11:43 [From Augmentin] potassium clavulanate AdvReac Vomiting Verified 09/06/23 11:43 [From Augmentin] Family History Father Myocardial infarction Cancer prostate, leukemia Agent orange exposure Diabetes Sister Diabetes COPD (chronic obstructive pulmonary disease) Mother CVA (cerebral vascular accident) Hypertension Surgical History History of appendectomy History of back surgery History of cholecystectomy (1991) History of cholecystectomy History of coronary artery stent placement (05/19/21) History of hysterectomy History of laparoscopy History of left heart catheterization (09/14/21) History of tonsillectomy Status post insertion of nerve stimulator Social History household members: significant other Smoking Status: Former smoker how long ago did patient quit smoking: Quit 1990, smoke 2 ppd since teen until quit. alcohol intake: current alcohol intake frequency: holidays/special occasions only substance use type: does not use caffeine: Yes ROS ROS Narrative Constitutional: Reports fatigue and weakness. Mild chills but denies fever. No diaphoresis or sweating HEENT: Reports systems reviewed and no addt'l complaints, except as documented Respiratory/Chest: No acute shortness of breath or respiratory distress or wheezing. CVS: No chest pressure or pain or tightness Gastrointestinal: Mild nausea, loss of appetite. Denies coffee ground emesis, hematemesis or vomiting Genitourinary: Hematuria. Rest as described in HPI. History of UTI about 7 years ago Musculoskeletal: Had back surgery in the past. Denies acute joint pain or limited range of motion. No acute injury Neurologic: Denies seizure-like symptoms. skin: No ulcer. No rash Endocrinology: Reports systems reviewed and no addt'l complaints, except as documented Hematologic/Lymphatic: Reports systems reviewed and no addt'l complaints, except as documented Rest 14 ROS are negative except as mentioned in HPI Vital Signs Vital Signs Vital Signs: 09/06/23 11:42 09/06/23 12:53 09/06/23 13:30 Temperature 97.3 F L Temperature Source Temporal Pulse Rate 87 83 83 Respiratory Rate 14 14 14 Blood Pressure 134/84 H 112/47 L 113/67 Blood Pressure Mean 100 68 82 Pulse Ox 99 100 100 Oxygen Delivery Method Room Air Room Air Room Air 09/06/23 14:52 09/06/23 15:53 09/06/23 16:00 Temperature 98.5 F 97.8 F 98.6 F Temperature Source Temporal Temporal Pulse Rate 80 80 78 Respiratory Rate 14 15 18 Blood Pressure 107/68 131/82 H 128/74 H Blood Pressure Mean 81 98 92 Pulse Ox 99 100 100 Oxygen Delivery Method Room Air Room Air Weight Weight: 209 lb Body Mass Index (BMI) 35.9 Physical Exam Narrative General: Alert, Oriented x3, Cooperative. BMI 35.8 kg/m? HEENT: Atraumatic, PERRLA, EOMI, Normocephalic Oral: No Gingival or Mucosal Lesions/ Ulcerations Neck: Supple, No JVD, Negative Carotid Bruits Chest wall/Lungs: Air entry diminished in bilateral lung bases. No crepitation/rhonchi Cardiovascular: Regular rate, Regular Rhythm, Normal S1, Normal S2, No M/G/R Abdomen: Bowel Sounds Present, Soft, Non Tender, Non-Distended : Mild tenderness present in suprapubic region. Hematuria. Triple-lumen Gaspar catheter. CBI no renal angle tenderness. Extremities: No edema, Capillary Refill Less than 3 Seconds Skin: No rashes, No breakdown Musculoskeletal: No Tenderness to Palpation of Joints or Extremities. Degenerative arthritis of knees joints Spine: Lumbar spine surgical scar. Neurological: Cranial nerves II-XII grossly intact, DTR 2+/4. No acute focal neurological deficit. Psych/Mental Status: Normal Affect, Appropriate. Results Lab / Micro Data 09/06/23 12:30 09/06/23 12:30 Labs: Laboratory Results - last 24 hr 09/06/23 12:30: WBC 7.0, RBC 3.17 L, Hgb 10.2 L, Hct 31.1 L, MCV 98.1, MCH 32.2 H, MCHC 32.8, RDW Std Deviation 51.8 H, RDW Coeff of Tomi 14.8 H, Plt Count 220, MPV 9.8, Immature Gran % (Auto) 0.300, Neut % (Auto) 66.9, Lymph % (Auto) 24.9, [place] % (Auto) 7.2, Eos % (Auto) 0.6, Baso % (Auto) 0.1, Absolute Neuts (auto) 4.7, Absolute Lymphs (auto) 1.73, Nucleated RBC % 0, Sodium 137, Potassium 3.9, Chloride 110 H, Carbon Dioxide 20.0 L, Anion Gap 7, BUN 30 H, Creatinine 0.84, Estim Creat Clear Calc 86.50, Est GFR (MDRD) Af Amer 90, Est GFR (MDRD) Non-Af 75, BUN/Creatinine Ratio 35.5 H, Glucose 169 H, Calcium 8.5 09/06/23 12:40: Urine Color Red, Urine Clarity Turbid, Urine pH 7.0, Ur Specific [place] 1.010, Urine Protein 500 H, Urine Glucose (UA) 250 H, Urine Ketones Negative, Urine Occult Blood 250 H, Urine Nitrite Negative, Urine Bilirubin Negative, Urine Urobilinogen Normal, Ur Leukocyte Esterase Negative, Urine RBC 50-100 SEEN, Urine WBC 0 SEEN, Ur Squamous Epith Cells 0 SEEN, Urine Bacteria 0 SEEN, Urine Mucus 0 SEEN Assessment & Plan Assessment/Plan (1) Gross hematuria: PLAN: Plan This 52-year-old female is being admitted for sudden onset of gross hematuria today in the morning. 1. Acute on recurrent gross hematuria most likely due to Plavix and Eliquis: Patient is being admitted in PCU. During previous admission patient had Gaspar catheter which was discontinued and she was voiding spontaneously without blood at the time of discharge but restarted today. H&H every 6 hourly. Urologist is consulted. Hold Plavix and Eliquis. Urologist Dr. Berenice Short is consulted. Continue continuous bladder irrigation. Although UA is negative for LE and nitrite but started on IV ceftriaxone because chances of UTI is high with Gaspar catheter and passing blood clots. During previous admission, urine culture grew less than 1000 E. coli and lactobacillus suggestive of commensal/colonization/contamination. CT abdomen/pelvis on 08/25 shows diffuse bladder wall thickening and pericecal fat stranding possible cystitis with possibility of asymmetric thickening of right posterior lateral bladder wall. Nonobstructive calculi lower pole of right kidney unchanged. Had cholecystectomy appendectomy and hysterectomy #2. Chronic blood loss anemia secondary to gross hematuria: Hemoglobin 10.2/31%. Patient was discharged on 9.7 g therefore does not meet criteria for acute anemia #3. Type 2 diabetes-glucose in BMP is 169. Patient home dose of Humalog insulin decreased but long-acting insulin continued. Accu-Chek ACH cover with sliding scale. #4. Paroxysmal A-fib heart rate is controlled. Apixaban is held. Carvedilol discontinued with holding parameters. #6. Chronic ischemic cardiomyopathy is a history of non-STEMI/CAD with chronic HFrEF:-The patient's last echocardiogram showed a 45% EF. Home medications continued. Hold Lasix, Entresto and spironolactone today as patient blood pressure is in the 120 systolic. May resume gradually once hemodynamic parameters are stable. 7. DVT prophylaxis: Pharmacological prophylaxis is contraindicated. Bilateral SCDs Living will/advanced directive/end of life care: Patient does have living will or advanced directive. Her fianc? near the bedside, Arnaldo is power of document review attorney for health. After discussion of benefits/risks procedures involved with full code, DNR CC arrest and DNR CC, the patient opted for full code. Patient does want artificial life support including intubation, tube feed, ventilator and/chest compression, central venous catheter, vasopressor and DC shock if needed Total time spent in [id number] encounter in discussion of advanced directive 17 minutes. Laboratory Results 09/06/23 12:30: WBC 7.0, RBC 3.17 L, Hgb 10.2 L, Hct 31.1 L, MCV 98.1, MCH 32.2 H, MCHC 32.8, RDW Std Deviation 51.8 H, RDW Coeff of Tomi 14.8 H, Plt Count 220, MPV 9.8, Immature Gran % (Auto) 0.300, Neut % (Auto) 66.9, Lymph % (Auto) 24.9, [place] % (Auto) 7.2, Eos % (Auto) 0.6, Baso % (Auto) 0.1, Absolute Neuts (auto) 4.7, Absolute Lymphs (auto) 1.73, Nucleated RBC % 0, Sodium 137, Potassium 3.9, Chloride 110 H, Carbon Dioxide 20.0 L, Anion Gap 7, BUN 30 H, Creatinine 0.84, Estim Creat Clear Calc 86.50, Est GFR (MDRD) Af Amer 90, Est GFR (MDRD) Non-Af 75, BUN/Creatinine Ratio 35.5 H, Glucose 169 H, Calcium 8.5 09/06/23 12:40: Urine Color Red, Urine Clarity Turbid, Urine pH 7.0, Ur Specific [place] 1.010, Urine Protein 500 H, Urine Glucose (UA) 250 H, Urine Ketones Negative, Urine Occult Blood 250 H, Urine Nitrite Negative, Urine Bilirubin Negative, Urine Urobilinogen Normal, Ur Leukocyte Esterase Negative, Urine RBC 50-100 SEEN, Urine WBC 0 SEEN, Ur Squamous Epith Cells 0 SEEN, Urine Bacteria 0 SEEN, Urine Mucus 0 SEEN Charges/Coding Visit Charges Inpatient E&M: 19559 Init Hosp L3 Procedures Hospitalists Procedures: 19436 Advncd Care Plan 30 Min
[2023-09-06] MEDS: Morphine 2 MG/ML Syringe IV ×2 (16:56→20:05)
[2023-09-06] MEDS: Ceftriaxone 1 GM/50 ML BAG IV (16:57)
[2023-09-06 18:32] LABS: International Normalized Ratio 1.2; Prothrombin Time (Protime)PT. 15.1 SECONDS (11.7-14.9)
[2023-09-06] MEDS: oxyCODONE 5 MG Tablet PO (19:12)
[2023-09-06] MEDS: 0.9% Saline Lock 10 ML Syringe IV (20:04)
[2023-09-06] MEDS: Ketorolac 15 MG/ML Vial IV (20:05)
[2023-09-06] MEDS: Insulin Lispro 100 UNIT/ML INSULN.PEN SC (20:32)
[2023-09-06] MEDS: Atorvastatin Calcium 80 MG Tablet PO (20:33)
[2023-09-06] MEDS: Senna/Docusate Sodium 1 Tablet 2 TABLET PO (20:34)
[2023-09-06] MEDS: tiZANidine HCl 2 MG Tablet 4 MG PO (20:34)
[2023-09-06] MEDS: 0.45% Normal Saline 1,000 ML 100 ML IV (20:37)
[2023-09-06 21:21] LABS: Bedside Glucose 161 mg/dL (74-106)
[2023-09-06] MEDS: Cefazolin 1 GM/50 ML BAG IV (23:21)
[2023-09-07] MEDS: Ketorolac 15 MG/ML Vial IV ×2 (03:17→11:34)
[2023-09-07] MEDS: 0.9% Saline Lock 10 ML Syringe IV (03:17)
[2023-09-07 03:34] VITALS: BP 94/51; PULSE 70; RESP 16; TEMP 36.2; O2SAT 97
[2023-09-07 03:54] LABS: Absolute Lymphocyte Count 2.01 X10^3/uL (0.83-4.51); Absolute Neutrophil Count 3.3 X10^3/uL (2.0-7.7); Basophil# 0.01 X10^3/uL; Basophil% 0.2 % (0-1); Eosinophil# 0.06 X10^3/uL; Hematocrit 25.8 % (37-47); Hemoglobin 8.2 g/dL (12.0-15.0); Lymphocyte # 2.01 X10^3/ul (0.83-4.51); Lymphocyte % 34.1 % (19-41); Mean Corp Hgb Conc 31.8 g/dL (32-36); Mean Corpuscular Hgb 31.7 pg (27.0-32.0); Mean Corpuscular Volume 99.6 fL (81-99); Mean Platelet Vol. 9.8 fl (6.2-12.0); Monocyte# 0.48 X10^3/uL; Monocyte% 8.1 % (0-10); NRBC Flagged by Analyzer 0 % (0-5); Neutrophil # 3.31 X10^3/uL (2.7-7.7); Neutrophil % 56.1 % (47-70); Platelet Count 183 K/mm3 (150-450); RBC Distribution Width CV 14.8 % (11.6-14.6); RBC Distribution Width SD 53.1 fl (35.1-43.9); Red Blood Count 2.59 M/mm3 (4.2-5.4); White Blood Count 5.9 K/mm3 (4.4-11.0)
[2023-09-07 04:04] LABS: Anion Gap 4 (5-15); BUN 28 mg/dL (7-18); BUN/Creat Ratio 35.7 RATIO (10-20); Calcium,Total 8.3 mg/dL (8.5-10.1); Chloride 110 mmol/L (98-107); Creatinine, Serum 0.78 mg/dL (0.55-1.02); EST Glomerular Filtration Rate 81 mL/min (>60); Est Glom Filt Rate - Afr Amer 98 mL/min (>60); Glucose 152 mg/dL (74-106); Sodium Level 140 mmol/L (136-145)
[2023-09-07] MEDS: Cefazolin 1 GM/50 ML BAG IV (05:11)
[2023-09-07] MEDS: Morphine 4 MG/ML Syringe 3 MG IV (08:21)
[2023-09-07] MEDS: Methimazole 5 MG Tablet 10 MG PO (08:27)
[2023-09-07] MEDS: Carvedilol 25 MG Tablet PO ×2 (08:27→16:16)
[2023-09-07] MEDS: Cholecalciferol (VIT D3) 25 MCG TABLET (1,000 UNITS) PO (08:28)
[2023-09-07] MEDS: Pantoprazole Sodium 20 MG Tablet PO (08:28)
[2023-09-07] MEDS: Insulin Glargine-YFGN 100 UNIT/ML Pen 30 UNIT SC (08:28)
[2023-09-07] MEDS: Isosorbide Mononitrate 30 MG Tablet PO (08:28)
[2023-09-07 08:49] LABS: Bedside Glucose 122 mg/dL (74-106)
[2023-09-07 09:23] VITALS: O2SAT 96
[2023-09-07 09:30] VITALS: BP 162/78; PULSE 83; RESP 16; TEMP 36.6; O2SAT 98
[2023-09-07] MEDS: Morphine 2 MG/ML Syringe IV ×2 (10:14→19:57)
[2023-09-07 10:40] LABS: Hematocrit 25.4 % (37-47); Hemoglobin 8.4 g/dL (12.0-15.0); Mean Corp Hgb Conc 33.1 g/dL (32-36); Mean Corpuscular Hgb 32.3 pg (27.0-32.0); Mean Corpuscular Volume 97.7 fL (81-99); Mean Platelet Vol. 9.8 fl (6.2-12.0); Platelet Count 189 K/mm3 (150-450); RBC Distribution Width CV 14.6 % (11.6-14.6); RBC Distribution Width SD 50.8 fl (35.1-43.9); White Blood Count 6.7 K/mm3 (4.4-11.0)
--- NOTE | 2023-09-07 10:52 | CASEMGMT ---
Social Work SW received call from 's [facility] KVNG Huddleston and update provided. Karo can be reached at [phone] JAMES Gambino
--- NOTE | 2023-09-07 11:30 | CASEMGMT ---
ARIELLA CALDERON Readmission Note Previous Admission:08/26/23-08/29/23 Diagnosis: Hematuria, urinary retention, ?UTI DC Disposition: Home with no needs Current Admission: Admitted 09/06/23 Current Diagnosis: severe hematuria On index admission, pt with hematuria and CBI. Pt xarelto held. Pt aguilar had been removed and no further clots. Pt hgb remained stable. Pt was dc'd with follow up with as outpt and to restart her xarelto and plavix on 09/04/23. Pt returned to ER on 09/05 with hematuria. ARIELLA CALDERON into pt room, pt states she has not had a follow up appt with as she was waiting until after [facility] to do this. Pt states she restarted her plavix on 09/03 and noted hematuria on 09/04. Pt does not have an appt scheduled with PCP as of yet either. Pt currently with CBI. Pt reports being I at home. ARIELLA CALDERON to follow for any dc needs. DC Plan: Home
[2023-09-07 12:13] LABS: Bedside Glucose 128 mg/dL (74-106)
--- NOTE | 2023-09-07 12:20 | PN.HOSP_ITS ---
Reason for Visit Reason for Visit: Diagnoses Gross hematuria (09/06/23) Subjective Subjective Patient admitted yesterday afternoon for acute onset hematuria. Had three-way catheter in place with continuous bladder irrigation running overnight. Nursing noted this morning that Dr. Short had been in to see the patient prior to my encounter with her, and continuous bladder irrigation was stopped as it was causing significant pain for the patient. I saw the patient at the bedside later in the morning. Patient was sitting up in bed but did appear moderately uncomfortable due to continued bladder pain. Stated that the IV morphine and IV Toradol had been fairly helpful for her but when they wore off she had significant pain. Catheter remained in place and she had dark red output in the catheter bag. She otherwise denied any acute concerns. Objective Data Objective Data Vital Signs: Vital Signs Temp Pulse Resp BP Pulse Ox O2 Del Method 97.9 F 83 16 162/78 H 98 Room Air 09/07/23 09:30 09/07/23 09:30 09/07/23 09:30 09/07/23 09:30 09/07/23 09:30 09/07/23 09:30 Oxygen Delivery Method Room Air Weight: 94.9 kg Body Mass Index (BMI) 35.9 Intake & Output: Intake and Output for Last 24 Hours 09/05/23 09/06/23 09/07/23 23:59 23:59 23:59 Intake Total 50 / 50 100 / 100 Output Total 1999 Balance -1950 / -1950 -1900 / -1900 Lab / Micro Data 09/07/23 10:26 09/07/23 03:20 Labs: Laboratory Results - last 24 hr 09/06/23 12:30: WBC 7.0, RBC 3.17 L, Hgb 10.2 L, Hct 31.1 L, MCV 98.1, MCH 32.2 H, MCHC 32.8, RDW Std Deviation 51.8 H, RDW Coeff of Tomi 14.8 H, Plt Count 220, MPV 9.8, Immature Gran % (Auto) 0.300, Neut % (Auto) 66.9, Lymph % (Auto) 24.9, [place] % (Auto) 7.2, Eos % (Auto) 0.6, Baso % (Auto) 0.1, Absolute Neuts (auto) 4.7, Absolute Lymphs (auto) 1.73, Nucleated RBC % 0, PT 15.1 H, INR 1.2, Sodium 137, Potassium 3.9, Chloride 110 H, Carbon Dioxide 20.0 L, Anion Gap 7, BUN 30 H , Creatinine 0.84, Estim Creat Clear Calc 86.50, Est GFR (MDRD) Af Amer 90, Est GFR (MDRD) Non-Af 75, BUN/Creatinine Ratio 35.5 H, Glucose 169 H, Calcium 8.5 09/06/23 12:40: Urine Color Red, Urine Clarity Turbid, Urine pH 7.0, Ur Specific [place] 1.010, Urine Protein 500 H, Urine Glucose (UA) 250 H, Urine Ketones Negative, Urine Occult Blood 250 H, Urine Nitrite Negative, Urine Bilirubin Negative, Urine Urobilinogen Normal, Ur Leukocyte Esterase Negative, Urine RBC 50-100 SEEN, Urine WBC 0 SEEN, Ur Squamous Epith Cells 0 SEEN, Urine Bacteria 0 SEEN, Urine Mucus 0 SEEN 09/06/23 20:19: POC Glucose 161 H 09/07/23 03:20: WBC 5.9, RBC 2.59 L, Hgb 8.2 L, Hct 25.8 L, MCV 99.6 H, MCH 31.7, MCHC 31.8 L, RDW Std Deviation 53.1 H, RDW Coeff of Tomi 14.8 H, Plt Count 183, MPV 9.8, Immature Gran % (Auto) 0.500, Neut % (Auto) 56.1, Lymph % (Auto) 34.1, [place] % (Auto) 8.1, Eos % (Auto) 1.0, Baso % (Auto) 0.2, Absolute Neuts (auto) 3.3, Absolute Lymphs (auto) 2.01, Nucleated RBC % 0, Sodium 140, Potassium 4.0, Chloride 110 H, Carbon Dioxide 26.0, Anion Gap 4 L, BUN 28 H, Creatinine 0.78, Estim Creat Clear Calc 93.20, Est GFR (MDRD) Af Amer 98, Est GFR (MDRD) Non-Af 81, BUN/Creatinine Ratio 35.7 H, Glucose 152 H, Calcium 8.3 L 09/07/23 08:25: POC Glucose 122 H 09/07/23 10:26: WBC 6.7, RBC 2.60 L, Hgb 8.4 L, Hct 25.4 L, MCV 97.7, MCH 32.3 H , MCHC 33.1, RDW Std Deviation 50.8 H, RDW Coeff of Tomi 14.6, Plt Count 189, MPV 9.8 09/07/23 11:33: POC Glucose 128 H Micro: Microbiology 09/06/23 12:40 Urine Catheter - Gaspar Urine Culture - Preliminary GPC Poss Enterococcus sp Physical Exam Const alert and oriented x3 Constitutional Narrative: Pleasant middle-age female, obese, sitting up in bed, moderately uncomfortable appearing due to continued bladder pain, otherwise conversing normally. General Appearance: cooperative HEENT normocephalic, head/scalp atraumatic, hearing grossly normal bilaterally and nasal mucous membranes and turbinates normal Eyes PERRL, EOMs intact bilaterally and conjunctivae normal Neck full ROM Chest inspection of chest normal Resp normal respiratory effort, normal air movement, no use of accessory muscles and clear to auscultation bilaterally Cardio regular rate, regular rhythm, no murmurs and peripheral pulses 2+ throughout GI normal to inspection, nondistended, normoactive bowel sounds, soft to palpation, non-tender and non-distended no CVA tenderness Narrative: No suprapubic tenderness noted on exam. Catheter in place and draining dark red urine. Bladder / Kidney Exam: catheter in place and bladder normal to palpation Back/Spine normal ROM Extremity normal to inspection, full ROM and no pedal edema Skin no rashes or lesions noted Neuro no focal motor deficits and no sensory deficits noted Speech: speech normal Psych mental status grossly normal Assessment & Plan Assessment/Plan (1) Gross hematuria: (2) Urinary tract infection: PLAN: Plan Patient is a 52-year-old female who presented to [facility] ED on 09/06/2023 with recurrent hematuria. 1. Recurrent gross hematuria with lower abdominal pain, acute blood loss anemia in setting of chronic anemia, concern for UTI Initially hospitalized at end of August with hematuria. CT abdomen pelvis at that time showed diffuse bladder wall thickening and pericecal fat stranding thought to be related to cystitis as well as possible asymmetric thickening of the right posterior lateral bladder wall. Urology followed at that time, was started on CBI and had improvement with this. Did not have cystoscopy done as she was anticoagulated with Eliquis and Plavix and would have needed and anticoagulant washout period prior to cystoscopy with biopsy. She was discharged home on 08/28 and unfortunately had recurrence of bleeding on 09/05 prompting readmission. Had three-way Gaspar catheter placed on admission with CBI started. Hemoglobin 10.2 on admit, was stable from hemoglobin 9-10 during previous hospitalization. ? Urology following. CBI discontinued on morning of 09/06 as it was causing the patient significant pain. Continue to hold Eliquis and Plavix. Macrobid added on 09/06 for presumed Enterococcus despite less than 1000 colony growth. Oxybutynin added on 09/06 for bladder spasm control. Continue IV morphine and p.o. oxycodone as needed for pain control. N.p.o. at midnight with plan for cystoscopy and bladder biopsy if urine remains bloody tomorrow. Repeat hemoglobin 8.2 on 09/06, rechecked and remained 8.4. Trend CBC daily. Chronic medical conditions: ? Obesity: BMI 35 on admit. Complicates hospital course, care and prognosis. ? Paroxysmal A-fib and LBBB s/p MATERIALS ASSOCIATE-D placement: Follows with Dr. Ho, last office visit in 03/2023. Continue home carvedilol. Holding home Eliquis as noted above. ? History of ischemic cardiomyopathy with HFrEF, history of CAD s/p stenting: S/p BEATRICE x 1 to mLAD in 2020. Last echo in 12/2022 showed EF 45%, stage I diastolic dysfunction, EF improved from previous study, no significant valvular issues. Continue home Coreg, isosorbide mononitrate and atorvastatin. Holding home Plavix as noted above. Holding home Entresto, spironolactone, lasix and Farxiga for now as well. ? Type 2 diabetes mellitus: Home regimen of Lantus 30 units daily, Humalog 14 units with meals. Continue Lantus 30 units and Humalog 10 units with meals plus sliding scale insulin that was started on admission, adjust as needed. ? Hyperthyroidism: Continue home methimazole. ? GERD: Continue home PPI. ? Anxiety: Continue BuSpar as needed. DVT prophylaxis: SCDs CODE STATUS: Full code, verified Expected disposition: Home, TBD Total clinical time spent by myself addressing the patient's medical issues, reviewing all the data, and collaborating with patient's care team: 35 minutes. Charges/Coding Visit Charges Inpatient E&M: 26049 Subs Hosp L2
--- NOTE | 2023-09-07 12:46 | PCM.CONS.GEN ---
Assessment & Plan Assessment/Plan (1) Gross hematuria: (2) Anticoagulated: PLAN: Plan Continuous bladder irrigation, titrate to off as possible Add Macrobid for presumed Enterococcus despite less than 1000 colony growth N.p.o. after midnight tonight Add oxybutynin for bladder spasm control If she remains bloody tomorrow, my plan is to proceed with cystoscopy and careful biopsy with cautery. HPI Consult Data Date of Consult: 09/07/23 HPI Narrative Reason for Consultation: gross hematuria HPI Narrative: PITO CLARK, is a 52 F who presents with recurrent gross hematuria. She was admitted to the hospital at the end of August with hematuria. She was sent home without a Gaspar catheter and the blood returned along with painful bladder spasms yesterday at home. During that admission she had a positive urine culture and was treated for the infection and she also was found to have an abnormal thickening of the bladder wall suspicious for mass. A cystoscopy has yet to be done. She is aware that I do not manage urologic malignancy. She will definitely need a cystoscopy with bladder biopsy for further assessment and management. I would like to refer her to another urologist, there is no one else available here as an inpatient for her to see. The plan will be if her urine clears by tomorrow, we will discharge her home with plans to follow-up with another urologist. If the urine remains bloody, I will proceed with cystoscopy, fulguration and bladder biopsy. The patient understands and agrees. [facility] Medical History Atherosclerotic heart disease of [place] coronary artery without angina pectoris Atrial fibrillation Benign hypertension Cardiomyopathy, ischemic Chronic low back pain Chronic nausea COPD (chronic obstructive pulmonary disease) Coronary artery disease COVID-19 virus infection Diabetes Difficult intubation Former smoker HFrEF (heart failure with reduced ejection fraction) Hirsutism History of non-ST elevation myocardial infarction (NSTEMI) (09/08/21) Hyperglycemia due to type 2 diabetes mellitus Hyperlipidemia Hypertension Hyperthyroidism Irregular heart beat Kidney stones Left bundle branch block (LBBB) Myocardial infarct Non-ischemic cardiomyopathy Non-ST elevation (NSTEMI) myocardial infarction Obesity Paroxysmal atrial fibrillation Presence of cardiac 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 therapy defibrillator (BINDER COVERSTITCH-D) Seizures Syncope Thyroid nodule Type 2 diabetes mellitus Vomiting Home Medications BD Ultra-Fine [place] Pen Needle 32 gauge x 5/32 (pen needle, diabetic) #100 ea 07/29/22 [Rx Last Taken Unknown] diphenhydramine HCl 25 mg tablet 25 mg PO Q4H PRN PRN Allergy Symptoms 08/06/22 [History Last Taken Unknown] hydrocodone-acetaminophen 5-325mg 5mg-325mg 1 tab PO Q8H PRN Check with primary doctor 08/06/22 [History Last Taken 08/06/22 10:00] naloxegol 25 mg tablet (Movantik) 25 mg PO QAM PRN Check with primary doctor 08/06/22 [History Last Taken Unknown] omeprazole magnesium 20 mg tablet,delayed release (Prilosec OTC) 20 mg PO DAILY Check with primary doctor 08/06/22 [History Last Taken Unknown] promethazine 25 mg tablet 25 mg PO TID PRN PRN Nausea And Vomiting 08/06/22 [History Last Taken Unknown] tizanidine 4 mg tablet 4 mg PO QHS 08/06/22 [History Last Taken 08/05/22] dapagliflozin propanediol 10 mg tablet (Farxiga) 10 mg PO DAILY 10/20/22 [History Last Taken Unknown] ibuprofen 200 mg tablet 200 mg PO Q6H PRN fever or pain 10/20/22 [History Last Taken Unknown] insulin glargine 100 unit/mL (3 mL) subcutaneous pen (Lantus Solostar U-100 Insulin) 30 unit subcut DAILY Check with primary doctor 10/20/22 [History Last Taken Unknown] insulin lispro 100 unit/mL subcutaneous pen (Humalog KwikPen (U-100) Insulin) 14 unit subcut TIDCM Check with primary doctor 10/20/22 [History Last Taken Unknown] sacubitril 97 mg-valsartan 103 mg tablet (Entresto) 1 tab PO BID 10/20/22 [History Last Taken Unknown] flash glucose sensor (FreeStyle Sanam 2 Sensor kit) #2 ea 03/02/23 [Rx Last Taken Unknown] cholecalciferol (vitamin D3) 50 mcg (2,000 unit) capsule 1,000 unit PO DAILY 03/08/23 [History Last Taken Unknown] spironolactone 50 mg tablet 50 mg PO DAILY #90 tabs 03/08/23 [Rx Last Taken Unknown] carvedilol 25 mg tablet 25 mg PO BID Check with primary doctor #180 tabs 03/10/23 [Rx Last Taken Unknown] glipizide 10 mg tablet, extended release 24 hr 10 mg PO BID diabetes #180 tabs 03/14/23 [Rx Last Taken Unknown] methimazole 10 mg tablet 10 mg PO DAILY #90 tabs 03/14/23 [Rx Last Taken Unknown] clopidogrel 75 mg tablet (Plavix) 75 mg PO DAILY #90 tabs 05/16/23 [Rx Last Taken Unknown] apixaban 5 mg tablet (Eliquis) See Rx Instructions .Route .COMPLEX #180 tabs 05/31/23 [Rx Last Taken Unknown] atorvastatin 80 mg tablet See Rx Instructions .Route .COMPLEX #360 TABLETS 06/09/23 [Rx Last Taken Unknown] isosorbide mononitrate 30 mg tablet,extended release 24 hr See Rx Instructions .Route .COMPLEX #360 TABLETS 06/09/23 [Rx Last Taken Unknown] furosemide 40 mg tablet See Rx Instructions .Route .COMPLEX #90 TABLETS 07/04/23 [Rx Last Taken Unknown] dulaglutide 1.5 mg/0.5 mL subcutaneous pen injector (Trulicity) 1.5 mg (0.5 mL) subcut QWEEK #2 mL 08/11/23 [Rx Last Taken Unknown] flash glucose scanning reader (Trendzo Sanam 2 [place]) #1 ea 08/11/23 [Rx Last Taken Unknown] Allergy/AdvReac Type Severity Reaction Status Date / Time amoxicillin trihydrate AdvReac Vomiting Verified 09/06/23 11:43 [From Augmentin] potassium clavulanate AdvReac Vomiting Verified 09/06/23 11:43 [From Augmentin] Family History Father Myocardial infarction Cancer prostate, leukemia Agent orange exposure Diabetes Sister Diabetes COPD (chronic obstructive pulmonary disease) Mother CVA (cerebral vascular accident) Hypertension Surgical History History of appendectomy History of back surgery History of cholecystectomy (1991) History of cholecystectomy History of coronary artery stent placement (05/19/21) History of hysterectomy History of laparoscopy History of left heart catheterization (09/14/21) History of tonsillectomy Status post insertion of nerve stimulator Social History household members: significant other Smoking Status: Former smoker how long ago did patient quit smoking: Quit 1990, smoke 2 ppd since teen until quit. alcohol intake: current alcohol intake frequency: holidays/special occasions only substance use type: does not use caffeine: Yes ROS Constitutional Constitutional: Denies anorexia, chills or fever(s) Eyes Eyes: Reports systems reviewed and no addt'l complaints, except as documented ENT HEENT: Reports systems reviewed and no addt'l complaints, except as documented Cardiovascular Cardiovascular: Denies chest pain, diaphoresis or dyspnea Respiratory/Chest Respiratory/Chest: Denies cough, dyspnea or inability to speak Gastrointestinal Gastrointestinal: Reports abdominal pain and cramping; Denies nausea Genitourinary Genitourinary: Reports abdominal discomfort, contractions, difficulty urinating, hematuria and urinary urgency Musculoskeletal Musculoskeletal: Reports systems reviewed and no addt'l complaints, except as documented Integumentary Integumentary: Reports systems reviewed and no addt'l complaints, except as documented Neurologic Neurologic: Reports systems reviewed and no addt'l complaints, except as documented Psychiatric Psychiatric: Reports systems reviewed and no addt'l complaints, except as documented Endocrine Endocrinology: Reports systems reviewed and no addt'l complaints, except as documented Hematologic/Lymphatic Hematologic/Lymphatic: Reports systems reviewed and no addt'l complaints, except as documented Allergic/Immunologic Allergic/Immunologic: Reports systems reviewed and no addt'l complaints, except as documented Physical Exam Const alert, oriented x3 and no apparent distress Constitutional Narrative: She is comfortable until she starts having bladder spasms. General Appearance: cooperative, comfortable, well kempt and well developed HEENT normocephalic, head/scalp atraumatic, hearing grossly normal bilaterally, external nose normal and moist oral mucous membranes Eyes General Eye: normal appearance of both eyes Neck supple General: normal visual inspection Lymph Lymphatic: no lymphedema noted Chest inspection of chest normal Resp normal respiratory effort, normal air movement and no retractions Cardio regular rate GI soft to palpation, non-tender and non-distended Narrative: She has a 24 [place] three-way Gaspar catheter indwelling. Continuous bladder irrigation clears very quickly and easily. I personally manually irrigated her for 1 small clot. Bladder / Kidney Exam: catheter in place Back/Spine no CVA tenderness Extremity normal to inspection Skin no rashes or lesions noted, no wounds and skin turgor normal Neuro oriented x3, CN's II-XII intact bilaterally and moves all extremities Psych mental status grossly normal, thought process normal and cooperative Lab / Micro Data Attestation: I reviewed the patient's lab results. Lab results narrative: Her hemoglobin is stable. 09/07/23 10:26 09/07/23 03:20 Labs: Laboratory Results - last 24 hr 09/06/23 12:30: WBC 7.0, RBC 3.17 L, Hgb 10.2 L, Hct 31.1 L, MCV 98.1, MCH 32.2 H, MCHC 32.8, RDW Std Deviation 51.8 H, RDW Coeff of Tomi 14.8 H, Plt Count 220, MPV 9.8, Immature Gran % (Auto) 0.300, Neut % (Auto) 66.9, Lymph % (Auto) 24.9, [place] % (Auto) 7.2, Eos % (Auto) 0.6, Baso % (Auto) 0.1, Absolute Neuts (auto) 4.7, Absolute Lymphs (auto) 1.73, Nucleated RBC % 0, PT 15.1 H, INR 1.2, Sodium 137, Potassium 3.9, Chloride 110 H, Carbon Dioxide 20.0 L, Anion Gap 7, BUN 30 H, Creatinine 0.84, Estim Creat Clear Calc 86.50, Est GFR (MDRD) Af Amer 90, Est GFR (MDRD) Non-Af 75, BUN/Creatinine Ratio 35.5 H, Glucose 169 H, Calcium 8.5 09/06/23 12:40: Urine Color Red, Urine Clarity Turbid, Urine pH 7.0, Ur Specific [place] 1.010, Urine Protein 500 H, Urine Glucose (UA) 250 H, Urine Ketones Negative, Urine Occult Blood 250 H, Urine Nitrite Negative, Urine Bilirubin Negative, Urine Urobilinogen Normal, Ur Leukocyte Esterase Negative, Urine RBC 50-100 SEEN, Urine WBC 0 SEEN, Ur Squamous Epith Cells 0 SEEN, Urine Bacteria 0 SEEN, Urine Mucus 0 SEEN 09/06/23 20:19: POC Glucose 161 H 09/07/23 03:20: WBC 5.9, RBC 2.59 L, Hgb 8.2 L, Hct 25.8 L, MCV 99.6 H, MCH 31.7, MCHC 31.8 L, RDW Std Deviation 53.1 H, RDW Coeff of Tomi 14.8 H, Plt Count 183, MPV 9.8, Immature Gran % (Auto) 0.500, Neut % (Auto) 56.1, Lymph % (Auto) 34.1, [place] % (Auto) 8.1, Eos % (Auto) 1.0, Baso % (Auto) 0.2, Absolute Neuts (auto) 3.3, Absolute Lymphs (auto) 2.01, Nucleated RBC % 0, Sodium 140, Potassium 4.0, Chloride 110 H, Carbon Dioxide 26.0, Anion Gap 4 L, BUN 28 H, Creatinine 0.78, Estim Creat Clear Calc 93.20, Est GFR (MDRD) Af Amer 98, Est GFR (MDRD) Non-Af 81, BUN/Creatinine Ratio 35.7 H, Glucose 152 H, Calcium 8.3 L 09/07/23 08:25: POC Glucose 122 H 09/07/23 10:26: WBC 6.7, RBC 2.60 L, Hgb 8.4 L, Hct 25.4 L, MCV 97.7, MCH 32.3 H, MCHC 33.1, RDW Std Deviation 50.8 H, RDW Coeff of Tomi 14.6, Plt Count 189, MPV 9.8 09/07/23 11:33: POC Glucose 128 H Micro: Microbiology 09/06/23 12:40 Urine Catheter - Gaspar Urine Culture - Preliminary GPC Poss Enterococcus sp
[2023-09-07] MEDS: Oxybutynin 5 MG Tablet PO ×2 (13:58→21:44)
[2023-09-07] MEDS: Nitrofurantoin Macrocrystals 100 MG Capsule PO ×2 (13:58→21:43)
[2023-09-07] MEDS: Ondansetron 4 MG/2 ML Vial IV (15:08)
[2023-09-07 16:09] VITALS: BP 114/95; PULSE 88; RESP 20; TEMP 36.5; O2SAT 96
[2023-09-07 16:50] LABS: Bedside Glucose 130 mg/dL (74-106)
[2023-09-07] MEDS: oxyCODONE 5 MG Tablet PO ×2 (18:08→23:20)
[2023-09-07 19:47] VITALS: BP 104/50; PULSE 84; RESP 13; TEMP 36.3; O2SAT 96
[2023-09-07] MEDS: Insulin Lispro 100 UNIT/ML INSULN.PEN SC (21:42)
[2023-09-07] MEDS: tiZANidine HCl 2 MG Tablet 4 MG PO (21:44)
[2023-09-07] MEDS: Atorvastatin Calcium 80 MG Tablet PO (21:44)
[2023-09-07 22:10] LABS: Bedside Glucose 167 mg/dL (74-106)
--- NOTE | 2023-09-07 23:47 | NURSING ---
Pt is NPO for surgery in the morning.
[2023-09-08] VITALS (16 sets, daily range): BP systolic 88–123; BP diastolic 46–64; PULSE 68–86; RESP 10–18; TEMP 36.3–36.7; O2SAT 91–100
--- NOTE | 2023-09-08 | BLA_PTH ---
PATIENT: PITO CLARK LOC: [facility] U#:[id number] AGE/SX: 52/F ROOM: [facility] RE09/06/[address]: Dr. Jamie Manrique DO : 1970 BED: 1 DIS: 09/10/2023 SPEC #: [id number] RECD: 09/08/23 16:19 STATUS: DAXA REMathew #: [id number] HOWARD: 09/08/23 00:[address]: Berenice Short DEPT: SURGICAL PATHOLOGY RECD BY: Mayur Diallo ENTERED: 09/09/23 09:36 SP TYPE: BLADDER BX OTHR DR: DO Dr. Berenice Knott MD Dr. Lisa Malys, DO Dr. Prakash Chand, MD Tissues: Urinary bladder, NOS Procedures: Surgery Specimen Level IV Comments: @ Ordering doctor for SUIV edited from to @ by IMAN at 09/12/23921 @ Submitting doctor edited from to @ by IMAN at 09/12/23921 HEADER OPERATION: Cysto, Biopsy, Fulguration, Bladder tumor with clot evacuation PRE-OP DIAGNOSIS: Gross hematuria, Anticoagulated TISSUE SUBMITTED: Bladder biopsy MICROSCOPIC DIAGNOSIS Urinary bladder, biopsy: Chronic follicular cystitis. DEEPTI/ 09/12/23 MICROSCOPIC DESCRIPTION Slides are reviewed. GROSS DESCRIPTION Received in fixative is one container labeled with the patient's name and designated Bladder biopsy. The specimen consists of minute fragments of nova soft tissue measuring in aggregate 0.3 x 0.1 x 0.1cm. The entire specimen is submitted in one cassette. RIDGE/ 09/09/23 TC:3 CPT: 04225
[2023-09-08] MEDS: oxyCODONE 5 MG Tablet PO (03:54)
[2023-09-08 04:21] LABS: Hematocrit 24.2 % (37-47); Hemoglobin 7.7 g/dL (12.0-15.0); Mean Corp Hgb Conc 31.8 g/dL (32-36); Mean Corpuscular Hgb 31.3 pg (27.0-32.0); Mean Corpuscular Volume 98.4 fL (81-99); Mean Platelet Vol. 9.9 fl (6.2-12.0); Platelet Count 167 K/mm3 (150-450); RBC Distribution Width CV 14.6 % (11.6-14.6); RBC Distribution Width SD 51.8 fl (35.1-43.9); Red Blood Count 2.46 M/mm3 (4.2-5.4)
[2023-09-08 04:44] LABS: Anion Gap 5 (5-15); BUN 21 mg/dL (7-18); Calcium,Total 8.3 mg/dL (8.5-10.1); Chloride 111 mmol/L (98-107); Creatinine, Serum 0.68 mg/dL (0.55-1.02); EST Glomerular Filtration Rate 96 mL/min (>60); Est Glom Filt Rate - Afr Amer 117 mL/min (>60); Estimated Creatinine Clearance 106.91 ml/min; Glucose 171 mg/dL (74-106); Potassium 4.2 mmol/L (3.5-5.1); Sodium Level 139 mmol/L (136-145)
[2023-09-08] MEDS: Oxybutynin 5 MG Tablet PO ×2 (05:41→21:48)
[2023-09-08 07:03] LABS: Bedside Glucose 141 mg/dL (74-106)
[2023-09-08] MEDS: Morphine 2 MG/ML Syringe IV (09:38)
[2023-09-08] MEDS: Carvedilol 25 MG Tablet PO (09:38)
[2023-09-08] MEDS: Nitrofurantoin Macrocrystals 100 MG Capsule PO ×2 (09:39→21:46)
[2023-09-08] MEDS: Isosorbide Mononitrate 30 MG Tablet PO (09:39)
[2023-09-08 12:00] LABS: Bedside Glucose 122 mg/dL (74-106)
--- NOTE | 2023-09-08 12:17 | PCM.PN.HOSP ---
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 Patient seen at bedside this morning. Sitting up in bed, conversing normally. Appears to be in mild distress today due to lower abdominal pain, somewhat improved from yesterday. States that she continues to have mild to moderate pain but this pain is a bit improved. She is looking forward to having the procedure done with urology today. No other acute concerns at this time. Objective Data Objective Data Vital Signs: Vital Signs Temp Pulse Resp BP Pulse Ox O2 Del Method 97.6 F L 70 10 L 121/46 H 94 Room Air 09/08/23 09:36 09/08/23 09:36 09/08/23 09:36 09/08/23 09:36 09/08/23 09:36 09/08/23 09:36 Oxygen Delivery Method Room Air Weight: 94.9 kg Body Mass Index (BMI) 35.9 Intake & Output: Intake and Output for Last 24 Hours 09/06/23 09/07/23 09/08/23 23:59 23:59 23:59 Intake Total 50 / 50 1420 / 1420 Output Total 1999 / 1999 79642 / 32392 2200 / 2200 Balance -1950 / -1950 -8780 / -8780 -2200 / -2200 Lab / Micro Data 09/08/23 04:10 09/08/23 04:10 Labs: Laboratory Results - last 24 hr 09/07/23 16:05: POC Glucose 130 H 09/07/23 21:41: POC Glucose 167 H 09/08/23 04:10: WBC 5.0, RBC 2.46 L, Hgb 7.7 L, Hct 24.2 L, MCV 98.4, MCH 31.3, MCHC 31.8 L, RDW Std Deviation 51.8 H, RDW Coeff of Tomi 14.6, Plt Count 167, MPV 9.9, Sodium 139, Potassium 4.2, Chloride 111 H, Carbon Dioxide 23.0, Anion Gap 5, BUN 21 H, Creatinine 0.68, Estim Creat Clear Calc 106.91, Est GFR (MDRD) Af Amer 117, Est GFR (MDRD) Non-Af 96, BUN/Creatinine Ratio 31.0 H, Glucose 171 H, Calcium 8.3 L 09/08/23 06:40: POC Glucose 141 H 09/08/23 11:27: POC Glucose 122 H Micro: Microbiology 09/06/23 12:40 Urine Catheter - Gaspar Urine Culture - Final Enterococcus faecalis Physical Exam Const alert and oriented x3 Constitutional Narrative: Pleasant middle-age female, obese, sitting up in bed, mildly uncomfortable appearing due to bladder pain but improved from admission, otherwise conversing normally. General Appearance: cooperative HEENT normocephalic, head/scalp atraumatic, hearing grossly normal bilaterally and nasal mucous membranes and turbinates normal Eyes PERRL, EOMs intact bilaterally and conjunctivae normal Neck full ROM Chest inspection of chest normal Resp normal respiratory effort, normal air movement, no use of accessory muscles and clear to auscultation bilaterally Cardio regular rate, regular rhythm, no murmurs and peripheral pulses 2+ throughout GI normal to inspection, nondistended, normoactive bowel sounds, soft to palpation, non-tender and non-distended no CVA tenderness Narrative: No suprapubic tenderness noted on exam. Catheter in place and draining dark red urine. Bladder / Kidney Exam: catheter in place and bladder normal to palpation Back/Spine normal ROM Extremity normal to inspection, full ROM and no pedal edema Skin no rashes or lesions noted Neuro no focal motor deficits and no sensory deficits noted Speech: speech normal Psych mental status grossly normal Assessment & Plan Assessment/Plan (1) Gross hematuria: (2) Urinary tract infection: PLAN: Plan Patient is a 52-year-old female who presented to [facility] ED on 09/06/2023 with recurrent hematuria. 1. Recurrent gross hematuria with lower abdominal pain, acute blood loss anemia in setting of chronic anemia, concern for UTI Initially hospitalized at end of August with hematuria. CT abdomen pelvis at that time showed diffuse bladder wall thickening and pericecal fat stranding thought to be related to cystitis as well as possible asymmetric thickening of the right posterior lateral bladder wall. Urology followed at that time, was started on CBI and had improvement with this. Did not have cystoscopy done as she was anticoagulated with Eliquis and Plavix and would have needed and anticoagulant washout period prior to cystoscopy with biopsy. She was discharged home on 08/28 and unfortunately had recurrence of bleeding on 09/05 prompting readmission. Had three-way Gaspar catheter placed on admission with CBI started. Hemoglobin 10.2 on admit, was stable from hemoglobin 9-10 during previous hospitalization. CBI discontinued on morning of 09/06 by urology as it was causing the patient significant pain. ? Urology following. Planning for cystoscopy with bladder biopsy this afternoon, will follow-up results. Continue to hold Eliquis and Plavix, will defer to urology on timing of restarting. Continue Macrobid and oxybutynin that were started on admission. Continue IV morphine and p.o. oxycodone as needed for pain control. Hemoglobin slowly downtrending, most recent hemoglobin 7.7 on 09/07. Continue to trend CBC daily. Iron studies ordered. Chronic medical conditions: ? Obesity: BMI 35 on admit. Complicates hospital course, care and prognosis. ? Paroxysmal A-fib and LBBB s/p DRAPERY ESTIMATOR-D placement: Follows with Dr. Ho, last office visit in 03/2023. Continue home carvedilol. Holding home Eliquis as noted above. ? History of ischemic cardiomyopathy with HFrEF, history of CAD s/p stenting: S/p BEATRICE x 1 to mLAD in 2020. Last echo in 12/2022 showed EF 45%, stage I diastolic dysfunction, EF improved from previous study, no significant valvular issues. Continue home Coreg, isosorbide mononitrate and atorvastatin. Holding home Plavix as noted above. Holding home Entresto, spironolactone, lasix and Farxiga for now as well. ? Type 2 diabetes mellitus: Home regimen of Lantus 30 units daily, Humalog 14 units with meals. Continue Lantus 30 units and Humalog 10 units with meals plus sliding scale insulin that was started on admission, adjust as needed. ? Hyperthyroidism: Continue home methimazole. ? GERD: Continue home PPI. ? Anxiety: Continue BuSpar as needed. DVT prophylaxis: SCDs CODE STATUS: Full code, verified Expected disposition: Home, TBD Total clinical time spent by myself addressing the patient's medical issues, reviewing all the data, and collaborating with patient's care team: 35 minutes. Charges/Coding Visit Charges Inpatient E&M: 27401 Subs Hosp L2
[2023-09-08 14:43] LABS: Ferritin 71 ng/mL (8-252); Iron 40 ug/dL (50-170); Iron Binding Capacity,Total 286 ug/dL (250-450)
--- NOTE | 2023-09-08 15:26 | OP.PCM_ITS ---
Report of Operation Date of Procedure: 09/08/23 Pre-Operative Diagnosis: Gross hematuria, bladder wall thickening Post-Operative Diagnosis: Same Surgery/Procedure Performed:: Cystoscopy, clot evacuation, bladder biopsy with fulguration Surgeon: Berenice Short Type of Anesthesia: [facility] [place] Specimen's removed: Bladder biopsies Description of Procedure: The patient is a 52-year-old complex female who has been having gross hematuria and her hemoglobin has been hovering around 8 and dropped to below 8 this morning. She has been on continuous bladder irrigation. Her anticoagulation has been held. She now presents for cystoscopic evaluation with clot evacuation, possible biopsy and fulguration. Informed consent was obtained. The patient was taken to the operating room and placed on the operating room table. Anesthesia monitored the head, neck, airway, IV access and vital signs throughout the case. Once anesthesia was appropriately administered, the patient was placed into dorsolithotomy position and was prepped and draped in usual sterile fashion. The cystoscope was inserted through the urethra under direct visualization and a significant amount of clot was identified. I switched to the resectoscope and the clot was irrigated in its entirety. Then using the 70 degree lens with the cystoscope, the entire bladder mucosa was visualized. There is no area of obvious mass, however, on the posterior bladder wall there is an area approximately 1.5 cm in diameter with an odd appearance of cystic lesions that seem to be filled with blood. I have never seen anything quite like this. Several biopsies of this area were taken and the tissue was then fulgurated for hemostatic control and tissue treatment. The entire area was cauterized for tissue treatment. After this area was treated, there were no other abnormalities identified. The bladder was emptied and the decision was made to leave her without a Gaspar catheter. She was awakened and taken to the recovery room in good condition. There were no complications during this procedure. Grafts/Implants Used: None Complications None Admit VTE Documentation VTE Present on Admission: Yes VTE Mechan Device Prophylaxis: SCD's VTE Pharm Prophylaxis ordered?: No Reason prophylaxis not ordered:: Medical Contraindication
[2023-09-08 18:13] LABS: Bedside Glucose 114 mg/dL (74-106)
[2023-09-08] MEDS: tiZANidine HCl 2 MG Tablet 4 MG PO (21:47)
[2023-09-08] MEDS: Atorvastatin Calcium 80 MG Tablet PO (21:47)
[2023-09-08] MEDS: Insulin Lispro 100 UNIT/ML INSULN.PEN SC (21:48)
[2023-09-08 23:47] LABS: Bedside Glucose 186 mg/dL (74-106)
[2023-09-09 03:40] VITALS: BP 123/59; PULSE 74; RESP 16; TEMP 36.6; O2SAT 99
[2023-09-09] MEDS: Oxybutynin 5 MG Tablet PO ×3 (06:06→22:22)
[2023-09-09 07:37] LABS: Hematocrit 26.2 % (37-47); Hemoglobin 8.4 g/dL (12.0-15.0); Mean Corp Hgb Conc 32.1 g/dL (32-36); Mean Corpuscular Hgb 31.9 pg (27.0-32.0); Mean Corpuscular Volume 99.6 fL (81-99); Mean Platelet Vol. 10.4 fl (6.2-12.0); Platelet Count 191 K/mm3 (150-450); RBC Distribution Width CV 14.6 % (11.6-14.6); RBC Distribution Width SD 51.5 fl (35.1-43.9); Red Blood Count 2.63 M/mm3 (4.2-5.4); White Blood Count 5.2 K/mm3 (4.4-11.0)
[2023-09-09 08:03] VITALS: O2SAT 97
[2023-09-09 08:08] LABS: Anion Gap 5 (5-15); BUN 21 mg/dL (7-18); BUN/Creat Ratio 30.8 RATIO (10-20); Calcium,Total 8.6 mg/dL (8.5-10.1); Chloride 110 mmol/L (98-107); Creatinine, Serum 0.68 mg/dL (0.55-1.02); EST Glomerular Filtration Rate 96 mL/min (>60); Est Glom Filt Rate - Afr Amer 116 mL/min (>60); Estimated Creatinine Clearance 106.91 ml/min; Glucose 158 mg/dL (74-106); Potassium 3.7 mmol/L (3.5-5.1); Sodium Level 138 mmol/L (136-145)
[2023-09-09 09:00] VITALS: BP 109/63; PULSE 73; RESP 16; TEMP 36.7; O2SAT 98
[2023-09-09] MEDS: Insulin Lispro 100 UNIT/ML INSULN.PEN 10 UNIT SC ×3 (09:29→17:19)
[2023-09-09] MEDS: Insulin Lispro 100 UNIT/ML INSULN.PEN SC ×2 (09:29→11:12)
[2023-09-09] MEDS: Insulin Glargine-YFGN 100 UNIT/ML Pen 30 UNIT SC (09:30)
[2023-09-09] MEDS: Methimazole 5 MG Tablet 10 MG PO (09:30)
[2023-09-09] MEDS: Carvedilol 25 MG Tablet PO ×2 (09:31→17:20)
[2023-09-09] MEDS: Pantoprazole Sodium 20 MG Tablet PO (09:31)
[2023-09-09] MEDS: Senna/Docusate Sodium 1 Tablet 2 TABLET PO ×2 (09:31→22:22)
[2023-09-09] MEDS: Isosorbide Mononitrate 30 MG Tablet PO (09:32)
[2023-09-09] MEDS: Nitrofurantoin Macrocrystals 100 MG Capsule PO ×2 (09:32→22:22)
[2023-09-09] MEDS: Cholecalciferol (VIT D3) 25 MCG TABLET (1,000 UNITS) PO (09:35)
[2023-09-09 10:09] LABS: Bedside Glucose 158 mg/dL (74-106)
--- NOTE | 2023-09-09 10:10 | PCM.PN.GU ---
Subjective Subjective She is feeling so much better today. Her bladder spasms have resolved and she is voiding without complaints. There is no longer any gross hematuria. Objective Data Objective Data Vital Signs: Vital Signs Temp Pulse Resp BP Pulse Ox O2 Del Method O2 Flow Rate 98.1 F 73 16 109/63 98 Room Air 2 09/09/23 09:00 09/09/23 09:00 09/09/23 09:00 09/09/23 09:00 09/09/23 09:00 09/09/23 09:00 09/08/23 16:52 Oxygen Flow Rate (L/min) 2 Oxygen Delivery Method Room Air Weight: 94.9 kg Body Mass Index (BMI) 35.9 Intake & Output: Intake and Output for Last 24 Hours 09/07/23 09/08/23 09/09/23 23:59 23:59 23:59 Intake Total 1420 / 1420 240 / 240 Output Total 29334 / 63809 3000 / 3000 Balance -8780 / -8780 -2760 / -2760 Lab / Micro Data Attestation: I reviewed the patient's lab results. 09/09/23 06:05 09/09/23 06:05 Labs: Laboratory Results - last 24 hr 09/08/23 04:10: Iron 40 L, TIBC 286, Iron Saturation 14.0 L, Ferritin 71 09/08/23 11:27: POC Glucose 122 H 09/08/23 17:47: POC Glucose 114 H 09/08/23 21:41: POC Glucose 186 H 09/09/23 06:05: WBC 5.2, RBC 2.63 L, Hgb 8.4 L, Hct 26.2 L, MCV 99.6 H, MCH 31.9, MCHC 32.1, RDW Std Deviation 51.5 H, RDW Coeff of Tomi 14.6, Plt Count 191, MPV 10.4, Sodium 138, Potassium 3.7, Chloride 110 H, Carbon Dioxide 23.0, Anion Gap 5, BUN 21 H, Creatinine 0.68, Estim Creat Clear Calc 106.91, Est GFR (MDRD) Af Amer 116, Est GFR (MDRD) Non-Af 96, BUN/Creatinine Ratio 30.8 H, Glucose 158 H, Calcium 8.6 09/09/23 06:06: POC Glucose 158 H Micro: Microbiology 09/06/23 12:40 Urine Catheter - Gaspar Urine Culture - Final Enterococcus faecalis Physical Exam Narrative The patient was walking about her room and had just voided. Clear urine was in the toilet without clots. Const alert, oriented x3 and no apparent distress HEENT normocephalic and head/scalp atraumatic Eyes General Eye: normal appearance of both eyes Neck General: normal visual inspection and trachea midline Chest inspection of chest normal Resp normal respiratory effort Cardio regular rate GI soft to palpation Narrative: Urine is clear, no Gaspar catheter Assessment & Plan Assessment/Plan (1) Gross hematuria: PLAN: Okay to restart anticoagulation therapy today As long as urine remains clear, okay to discharge home from standpoint She will follow-up with me next week to discuss the biopsy results Please discharge home on Macrobid to complete a 7-day course for the Enterococcus culture (2) Urinary tract infection:
[2023-09-09] MEDS: APIXABAN 5 MG TABLET PO ×2 (11:06→22:24)
[2023-09-09] MEDS: Clopidogrel Bisulfate 75 MG Tablet PO (11:06)
[2023-09-09 11:35] LABS: Bedside Glucose 192 mg/dL (74-106)
[2023-09-09 15:00] VITALS: BP 119/64; PULSE 75; RESP 16; TEMP 36.6; O2SAT 99
--- NOTE | 2023-09-09 16:00 | PCM.PN.HOSP ---
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 Short. I spoke with Dr. Short over the phone after the procedure and she noted that patient had extensive clots in the bladder as well as a hypervascular area of unclear etiology that she cauterized. She recommended restarting patient's Eliquis and Plavix this morning and monitoring patient for signs of recurrent bleeding. I saw patient at the bedside later in the morning. Patient was laying fairly comfortably in bed, in no acute distress. Stated that her abdominal pain was significantly improved from previous days. The Gaspar catheter had also been removed after procedure yesterday and patient states that she has been voiding on her own without issue since then. She has not noticed any significant blood with urination today. Patient does remain fearful about having recurrence of bleeding with restarting anticoagulation and she is agreeable to remaining in the hospital until tomorrow to monitor closely for signs of bleeding. She has no other acute concerns this morning. Objective Data Objective Data Vital Signs: Vital Signs Temp Pulse Resp BP Pulse Ox O2 Del Method O2 Flow Rate 98 F 75 16 119/64 99 Room Air 2 09/09/23 15:00 09/09/23 15:00 09/09/23 15:00 09/09/23 15:00 09/09/23 15:00 09/09/23 15:00 09/08/23 16:52 Oxygen Flow Rate (L/min) 2 Oxygen Delivery Method Room Air Weight: 94.9 kg Body Mass Index (BMI) 35.9 Intake & Output: Intake and Output for Last 24 Hours 09/07/23 09/08/23 09/09/23 23:59 23:59 23:59 Intake Total 1420 / 1420 240 / 240 Output Total 80142 / 38063 3000 / 3000 Balance -8780 / -8780 -2760 / -2760 Lab / Micro Data 09/09/23 16:15 09/09/23 06:05 Labs: Laboratory Results - last 24 hr 09/08/23 17:47: POC Glucose 114 H 09/08/23 21:41: POC Glucose 186 H 09/09/23 06:05: WBC 5.2, RBC 2.63 L, Hgb 8.4 L, Hct 26.2 L, MCV 99.6 H, MCH 31.9, MCHC 32.1, RDW Std Deviation 51.5 H, RDW Coeff of Tomi 14.6, Plt Count 191, MPV 10.4, Sodium 138, Potassium 3.7, Chloride 110 H, Carbon Dioxide 23.0, Anion Gap 5, BUN 21 H, Creatinine 0.68, Estim Creat Clear Calc 106.91, Est GFR (MDRD) Af Amer 116, Est GFR (MDRD) Non-Af 96, BUN/Creatinine Ratio 30.8 H, Glucose 158 H, Calcium 8.6 09/09/23 06:06: POC Glucose 158 H 09/09/23 11:10: POC Glucose 192 H Micro: Microbiology 09/06/23 12:40 Urine Catheter - Gaspar Urine Culture - Final Enterococcus faecalis Physical Exam Const alert and oriented x3 Constitutional Narrative: Pleasant middle-age female, obese, laying comfortably in bed, conversing normally, no acute distress. General Appearance: cooperative HEENT normocephalic, head/scalp atraumatic, hearing grossly normal bilaterally and nasal mucous membranes and turbinates normal Eyes PERRL, EOMs intact bilaterally and conjunctivae normal Neck full ROM Chest inspection of chest normal Resp normal respiratory effort, normal air movement, no use of accessory muscles and clear to auscultation bilaterally Cardio regular rate, regular rhythm, no murmurs and peripheral pulses 2+ throughout GI normal to inspection, nondistended, normoactive bowel sounds, soft to palpation, non-tender and non-distended no CVA tenderness Narrative: No suprapubic tenderness noted on exam. Catheter removed on 09/07, patient voiding on her own without issue. Bladder / Kidney Exam: catheter in place and bladder normal to palpation Back/Spine normal ROM Extremity normal to inspection, full ROM and no pedal edema Skin no rashes or lesions noted Neuro no focal motor deficits and no sensory deficits noted Speech: speech normal Psych mental status grossly normal Assessment & Plan Assessment/Plan (1) Gross hematuria: (2) Urinary tract infection: PLAN: Plan Patient is a 52-year-old female who presented to [facility] ED on 09/06/2023 with recurrent hematuria. 1. Recurrent gross hematuria with lower abdominal pain, acute blood loss anemia in setting of chronic anemia, concern for UTI Initially hospitalized at end of August with hematuria. CT abdomen pelvis at that time showed diffuse bladder wall thickening and pericecal fat stranding thought to be related to cystitis as well as possible asymmetric thickening of the right posterior lateral bladder wall. Urology followed at that time, was started on CBI and had improvement with this. Did not have cystoscopy done as she was anticoagulated with Eliquis and Plavix and would have needed and anticoagulant washout period prior to cystoscopy with biopsy. She was discharged home on 08/28 and unfortunately had recurrence of bleeding on 09/05 prompting readmission. Had three-way Gaspar catheter placed on admission with CBI started. Hemoglobin 10.2 on admit, was stable from hemoglobin 9-10 during previous hospitalization. CBI discontinued on morning of 09/06 by urology as it was causing the patient significant pain. ? Dr. Short with Urology following. S/p cystoscopy on 09/07, found to have significant amount of clot in the bladder as well as an area approximate 1.5 cm in diameter on the posterior bladder wall with an odd appearance of cystic lesions that was filled with blood. Urology noted that she had previously seen something like this in appearance. Several biopsies were taken of the area and the tissue was then fulgurated for hemostatic control and tissue treatment. Patient tolerated cystoscopy well. Gaspar catheter was removed after cystoscopy and patient has been voiding well on her own. Noted to have clear urine on 09/08. Restarted Eliquis and Plavix on morning of 09/08. Hemoglobin trend 7.7 (09/07) > 8.4 (/5 AM) > 8.9 (/5 PM). Follow-up CBC tomorrow morning. If hemoglobin remained stable and patient has no signs of bleeding, will plan for discharge home tomorrow afternoon. Continue Macrobid. Chronic medical conditions: ? Obesity: BMI 35 on admit. Complicates hospital course, care and prognosis. ? Paroxysmal A-fib and LBBB s/p OXYHYDROGEN WELDER-D placement: Follows with Dr. Ho, last office visit in 03/2023. Continue home carvedilol. Holding home Eliquis as noted above. ? History of ischemic cardiomyopathy with HFrEF, history of CAD s/p stenting: S/p BEATRICE x 1 to mLAD in 2020. Last echo in 12/2022 showed EF 45%, stage I diastolic dysfunction, EF improved from previous study, no significant valvular issues. Continue home Coreg, isosorbide mononitrate and atorvastatin. Holding home Plavix as noted above. Holding home Entresto, spironolactone, lasix and Farxiga for now as well. ? Type 2 diabetes mellitus: Home regimen of Lantus 30 units daily, Humalog 14 units with meals. Continue Lantus 30 units and Humalog 10 units with meals plus sliding scale insulin that was started on admission, adjust as needed. ? Hyperthyroidism: Continue home methimazole. ? GERD: Continue home PPI. ? Anxiety: Continue BuSpar as needed. DVT prophylaxis: Eliquis CODE STATUS: Full code, verified Expected disposition: Home, 1 to 2 days Total clinical time spent by myself addressing the patient's medical issues, reviewing all the data, and collaborating with patient's care team: 35 minutes. Charges/Coding Visit Charges Inpatient E&M: 37724 Subs Hosp L2
[2023-09-09 16:24] LABS: Hematocrit 27.7 % (37-47); Hemoglobin 8.9 g/dL (12.0-15.0); Mean Corp Hgb Conc 32.1 g/dL (32-36); Mean Corpuscular Hgb 31.8 pg (27.0-32.0); Mean Corpuscular Volume 98.9 fL (81-99); Mean Platelet Vol. 9.7 fl (6.2-12.0); Platelet Count 222 K/mm3 (150-450); RBC Distribution Width CV 14.6 % (11.6-14.6); RBC Distribution Width SD 51.6 fl (35.1-43.9); White Blood Count 5.2 K/mm3 (4.4-11.0)
[2023-09-09 16:43] LABS: Bedside Glucose 134 mg/dL (74-106)
--- NOTE | 2023-09-09 17:05 | CASEMGMT ---
Social Work SW did attempt to meet w/pt regarding SDOH screening, however pt was asleep. SW will try again tomorrow. TAYLOR Ferguson
[2023-09-09 17:23] VITALS: BP 130/72; PULSE 83; RESP 16; TEMP 36.6; O2SAT 97
[2023-09-09 20:25] VITALS: BP 139/60; PULSE 79; RESP 16; TEMP 36.7; O2SAT 100
[2023-09-09] MEDS: tiZANidine HCl 2 MG Tablet 4 MG PO (22:22)
[2023-09-09] MEDS: Atorvastatin Calcium 80 MG Tablet PO (22:22)
[2023-09-09 22:49] LABS: Bedside Glucose 133 mg/dL (74-106)
[2023-09-10 03:00] VITALS: BP 99/53; PULSE 81; RESP 16; TEMP 37.1; O2SAT 96
[2023-09-10] MEDS: Insulin Lispro 100 UNIT/ML INSULN.PEN SC (05:56)
[2023-09-10] MEDS: Oxybutynin 5 MG Tablet PO (05:56)
[2023-09-10 06:18] LABS: Bedside Glucose 161 mg/dL (74-106)
[2023-09-10 07:18] VITALS: BP 104/58; PULSE 62; RESP 16; TEMP 36.5; O2SAT 100
[2023-09-10] MEDS: APIXABAN 5 MG TABLET PO (07:20)
[2023-09-10] MEDS: Senna/Docusate Sodium 1 Tablet 2 TABLET PO (07:21)
[2023-09-10] MEDS: Isosorbide Mononitrate 30 MG Tablet PO (07:21)
[2023-09-10] MEDS: Cholecalciferol (VIT D3) 25 MCG TABLET (1,000 UNITS) PO (07:21)
[2023-09-10] MEDS: Clopidogrel Bisulfate 75 MG Tablet PO (07:21)
[2023-09-10] MEDS: Pantoprazole Sodium 20 MG Tablet PO (07:22)
[2023-09-10] MEDS: Carvedilol 25 MG Tablet PO (07:22)
[2023-09-10] MEDS: Nitrofurantoin Macrocrystals 100 MG Capsule PO (07:22)
[2023-09-10] MEDS: Methimazole 5 MG Tablet 10 MG PO (07:23)
[2023-09-10] MEDS: Insulin Lispro 100 UNIT/ML INSULN.PEN 10 UNIT SC (08:00)
[2023-09-10] MEDS: Insulin Glargine-YFGN 100 UNIT/ML Pen 30 UNIT SC (08:00)
[2023-09-10 08:14] LABS: Hematocrit 25.7 % (37-47); Hemoglobin 8.3 g/dL (12.0-15.0); Mean Corp Hgb Conc 32.3 g/dL (32-36); Mean Corpuscular Hgb 32.4 pg (27.0-32.0); Mean Corpuscular Volume 100.4 fL (81-99); Platelet Count 199 K/mm3 (150-450); RBC Distribution Width CV 14.7 % (11.6-14.6); RBC Distribution Width SD 52.9 fl (35.1-43.9); Red Blood Count 2.56 M/mm3 (4.2-5.4); White Blood Count 4.5 K/mm3 (4.4-11.0)
[2023-09-10 08:23] LABS: Bedside Glucose 190 mg/dL (74-106)
--- NOTE | 2023-09-10 10:42 | DCINST_ITS ---
Discharge Instructions Diet Discharge Diet: No restrictions Activity Discharge Activity: No Restrictions Weight Bearing Status: Full weight bearing Follow Up Care Test Results: Test results from this visit will be discussed in further detail at your follow- up appointment, if applicable. Discharge Plan Admission Admit Date/Time: 09/06/23 16:33 Primary Reason for Your Visit: Hematuria Attending Provider: Jamie Manrique Primary Care Provider: Margo Tatum Consulting Providers: Navdeep Bourgeois; Berenice Short Instructions Additional Instructions / Restrictions: We have made several changes to her medications, as you are blood pressure was borderline low here and you are off of most of your heart failure medications. The following changes were made: ? Take Lasix 20 mg daily (decreased from 40 mg daily) ? Take spironolactone 12.5 mg daily (decreased from 50 mg daily) ? Take glipizide 10 mg daily (decreased from 10 mg twice daily) ? Take Coreg 6.25 mg twice daily (decreased from 25 mg twice daily) ? STOP taking the following meds: Entresto, Farxiga, ibuprofen Please take 4 more days of Macrobid to complete a 7-day course of antibiotics total. Please call the cardiology and endocrinology office to schedule follow-up appointments within the next few weeks and they can make further adjustments to your medications as needed. Follow-up with Dr. Short in the office next week and please have a repeat CBC drawn at that time to check your hemoglobin level. If you have recurrence of your hematuria (blood in the urine), please come back to the hospital. Discharge Orders/Prescriptions Prescriptions: New nitrofurantoin monohyd/m-cryst 100 mg Capsule 100 mg PO BID 4 Days Qty: 8 0RF furosemide [Lasix] 20 mg tablet 20 mg PO DAILY 30 Days Qty: 30 2RF Continued insulin glargine [Lantus Solostar U-100 Insulin] 100 unit/mL (3 mL) insulin pen 30 unit subcut DAILY (DME) [facility] See Rx Instructions .Route Qty: 1 0RF Rx Instructions: As directed Trulicity 1.5 mg/0.5 mL pen injector 1.5 mg subcut QWEEK Qty: 2 3RF tizanidine 4 mg tablet 4 mg PO QHS Patient Comments: take 1 tablet by mouth every evening diphenhydramine HCl 25 mg Tablet 25 mg PO Q4H PRN PRN (Reason: Allergy Symptoms) promethazine 25 mg tablet 25 mg PO TID PRN PRN (Reason: Nausea And Vomiting) Patient Comments: take 1 tablet by mouth three times a day if needed for nausea and vomiting hydrocodone-acetaminophen 5-325 mg tablet 1 tab PO Q8H PRN (Reason: Check with primary doctor) omeprazole magnesium [Prilosec OTC] 20 mg tablet,delayed release (DR/EC) 20 mg PO DAILY Movantik 25 mg tablet 25 mg PO QAM PRN (Reason: Check with primary doctor) Rx Instructions: must be taken on empty stomach; no food 1 hr after or 2-3 hrs before dose insulin lispro [Humalog KwikPen Insulin] 100 unit/mL insulin pen 14 unit subcut TIDCM (DME) pen needle, diabetic [BD Ultra-Fine [place] Pen Needle] 32 gauge x 5/32 needle See Rx Instructions .Route Qty: 100 5RF Rx Instructions: 4x/day (DME) FreeStyle Sanam 2 Sensor Kit See Rx Instructions .Route Qty: 2 5RF Rx Instructions: 1 sensor q 14 days cholecalciferol (vitamin D3) 50 mcg (2,000 unit) capsule 1,000 unit PO DAILY methimazole 10 mg tablet 10 mg PO DAILY Qty: 90 1RF clopidogrel [Plavix] 75 mg tablet 75 mg PO DAILY Qty: 90 3RF Hold Instructions: Resume on 09/04/23. Eliquis 5 mg tablet See Rx Instructions .ROUTE .COMPLEX Qty: 180 3RF Hold Instructions: Resume on 09/04/23. Dose Instruction: take 1 tablet by mouth twice a day Patient Comments: since 08/25 Rx Instructions: take 1 tablet by mouth twice a day atorvastatin 80 mg tablet See Rx Instructions .ROUTE .COMPLEX Qty: 360 0RF Dose Instruction: take 1 tablet by mouth at bedtime Rx Instructions: take 1 tablet by mouth at bedtime isosorbide mononitrate 30 mg tablet extended release 24 hr See Rx Instructions .ROUTE .COMPLEX Qty: 360 0RF Dose Instruction: take 1 tablet by mouth once daily Rx Instructions: take 1 tablet by mouth once daily Changed carvedilol 25 mg tablet 6.25 mg PO BID 30 Days Qty: 180 2RF Rx Instructions: must administer with a meal/food glipizide 10 mg tablet extended release 24hr 10 mg PO DAILY 30 Days Qty: 180 2RF spironolactone 50 mg tablet 12.5 mg PO DAILY 30 Days Qty: 90 2RF Discontinued Farxiga 10 mg tablet 10 mg PO DAILY Entresto 97-103 mg tablet 1 tab PO BID ibuprofen 200 mg tablet 200 mg PO Q6H PRN (Reason: fever or pain) Hold Instructions: until after you see Dr. Short furosemide 40 mg tablet See Rx Instructions .ROUTE .COMPLEX Qty: 90 3RF Dose Instruction: take 1 tablet by mouth once daily Rx Instructions: take 1 tablet by mouth once daily Referrals / Follow Up: Margo Tatum DO [Primary Care Provider] - Disposition Disposition (needs filled in before D/C Order can be placed): Home, Self Care
--- NOTE | 2023-09-10 10:56 | PCM.DC.SUM ---
Providers Date of Admission: 09/06/23 Date of Discharge: 09/10/23 Primary Care Physician: Dr. Margo Tatum, Consultations 09/06/23 18:41 Consult: Urology Routine Consulting Provider: Berenice Short Reason for Consult: HEMATURIA, recurrent EMERGENT Consult: No MD Notified: Yes Date Notified: 09/06/23 Time Notified: 17:10 Method of Notification: ED Physician Initiated Reason For Visit: SEVERE HEMATURIA Diagnosis Discharge Diagnosis (1) Gross hematuria: Status: Acute Code(s): R31.0 - Gross hematuria (2) Urinary tract infection: Status: Acute Code(s): N39.0 - Urinary tract infection, site not specified Medications at Discharge Home Medications BD Ultra-Fine [place] Pen Needle 32 gauge x 5/32 (pen needle, diabetic) #100 ea 07/29/22 diphenhydramine HCl 25 mg tablet 25 mg PO Q4H PRN PRN Allergy Symptoms 08/06/22 hydrocodone-acetaminophen 5-325mg 5mg-325mg 1 tab PO Q8H PRN Check with primary doctor 08/06/22 naloxegol 25 mg tablet (Movantik) 25 mg PO QAM PRN Check with primary doctor 08/06/22 omeprazole magnesium 20 mg tablet,delayed release (Prilosec OTC) 20 mg PO DAILY Check with primary doctor 08/06/22 promethazine 25 mg tablet 25 mg PO TID PRN PRN Nausea And Vomiting 08/06/22 tizanidine 4 mg tablet 4 mg PO QHS 08/06/22 insulin glargine 100 unit/mL (3 mL) subcutaneous pen (Lantus Solostar U-100 Insulin) 30 unit subcut DAILY Check with primary doctor 10/20/22 insulin lispro 100 unit/mL subcutaneous pen (Humalog KwikPen (U-100) Insulin) 14 unit subcut TIDCM Check with primary doctor 10/20/22 flash glucose sensor (FreeStyle Sanam 2 Sensor kit) #2 ea 03/02/23 cholecalciferol (vitamin D3) 50 mcg (2,000 unit) capsule 1,000 unit PO DAILY 03/08/23 methimazole 10 mg tablet 10 mg PO DAILY #90 tabs 03/14/23 clopidogrel 75 mg tablet (Plavix) 75 mg PO DAILY #90 tabs 05/16/23 apixaban 5 mg tablet (Eliquis) See Rx Instructions .Route .COMPLEX #180 tabs 05/31/23 atorvastatin 80 mg tablet See Rx Instructions .Route .COMPLEX #360 TABLETS 06/09/23 isosorbide mononitrate 30 mg tablet,extended release 24 hr See Rx Instructions .Route .COMPLEX #360 TABLETS 06/09/23 dulaglutide 1.5 mg/0.5 mL subcutaneous pen injector (Trulicity) 1.5 mg (0.5 mL) subcut QWEEK #2 mL 08/11/23 flash glucose scanning reader ([employer] Sanam 2 [place]) #1 ea 08/11/23 carvedilol 25 mg tablet 6.25 mg (/4 x 25 mg) PO BID Check with primary doctor 30 days #180 tabs 09/10/23 furosemide 20 mg tablet (Lasix) 20 mg PO DAILY 30 days #30 tabs 09/10/23 glipizide 10 mg tablet, extended release 24 hr 10 mg PO DAILY diabetes 30 days #180 tabs 09/10/23 nitrofurantoin monohydrate/macrocrystals 100 mg capsule 100 mg PO BID 4 days #8 caps 09/10/23 spironolactone 50 mg tablet 12.5 mg (/4 x 50 mg) PO DAILY 30 days #90 tabs 09/10/23 Hospital Course Operations None Procedures - (Cystoscopy with biopsy and fulguration) Summary of Care Provided Minutes Spent on Discharge: 35 Hospital Course: Patient is a 52-year-old female who presented to [facility] ED on 09/06/2023 with recurrent hematuria. 1. Recurrent gross hematuria with lower abdominal pain, acute blood loss anemia in setting of chronic anemia, concern for UTI Initially hospitalized at end of August with hematuria. CT abdomen pelvis at that time showed diffuse bladder wall thickening and pericecal fat stranding thought to be related to cystitis as well as possible asymmetric thickening of the right posterior lateral bladder wall. Urology followed at that time, was started on CBI and had improvement with this. Did not have cystoscopy done as she was anticoagulated with Eliquis and Plavix and would have needed and anticoagulant washout period prior to cystoscopy with biopsy. She was discharged home on 08/28 and unfortunately had recurrence of bleeding on 09/05 prompting readmission. Had three-way Gaspar catheter placed on admission with CBI started. Hemoglobin 10.2 on admit, was stable from hemoglobin 9-10 during previous hospitalization. CBI discontinued on morning of 09/06 by urology as it was causing the patient significant pain. S/p cystoscopy on 09/07, found to have significant amount of clot in the bladder as well as an area approximate 1.5 cm in diameter on the posterior bladder wall with an odd appearance of cystic lesions that was filled with blood. Urology noted that she had previously seen something like this in appearance. Several biopsies were taken of the area and the tissue was then fulgurated for hemostatic control and tissue treatment. Patient tolerated cystoscopy well. Gaspar catheter was removed after cystoscopy and patient voided well on her own. ? Dr. Short with Urology followed. Eliquis and Plavix restarted on morning of 09/08, hemoglobin remained stable on multiple checks after that and patient denied any hematuria after the cystoscopy. Will follow-up with Dr. Short in the office next week, recommend that she has a repeat CBC checked at that time. Macrobid continued on discharge with plan to complete 7-day course of antibiotics total, stop date 09/13. 2. History of ischemic cardiomyopathy with HFrEF, history of CAD s/p stenting, hypertension Follows with [facility]. S/p BEATRICE x 1 to mLAD in 2020. Last echo in 12/2022 showed EF 45%, stage I diastolic dysfunction, EF improved from previous study, no significant valvular issues. ? Home Entresto, spironolactone, Lasix and Farxiga were held on admission due to low blood pressures. Home Coreg and isosorbide mononitrate were continued. Despite resolution of hematuria issues as noted above, patient remained borderline hypotensive and bradycardic by day of discharge. Will continue home isosorbide mononitrate and atorvastatin on discharge. However, dose reduced to Coreg 6.25 mg twice daily on discharge. Also dose reduced to Lasix 20 mg daily and spironolactone 12.5 mg daily on discahrge. Held home Entresto and Farxiga. Recommended that patient follow-up with outpatient cardiology in the next 1 to 2 weeks for further medication adjustments. 3. Type [address] with [address] Kent with Endocrinology. Home regimen of Lantus 30 units daily, Humalog 14 units with meals, Farxiga 10 mg daily, glipizide 10 mg twice daily, dulaglutide 1.5 mg weekly. ? Treated with Lantus 30 units daily, Humalog 10 units with meals plus sliding scale insulin and sugars remained borderline low during hospitalization. Okay to resume home insulin regimen on discharge. Home dulaglutide also continued. Will reduce to glipizide 10 mg daily and Farxiga held on discharge. Recommended outpatient follow-up with endocrinology in the next 1 to 2 weeks for further medication adjustments. 4. Paroxysmal A-fib and LBBB s/p SUBPOENA SERVER-D placement ? Follows with [facility] as noted above. Dose reduced Coreg on discharge as noted above. Continue home Eliquis as noted above. Chronic medical conditions: ? Obesity: BMI 35 on admit. Complicates hospital course, care and prognosis. ? Hyperthyroidism: Continue home methimazole. ? GERD: Continue home PPI. ? Anxiety: Continue BuSpar as needed. Total clinical time spent by myself addressing the patient's medical issues, reviewing all the data, and collaborating with patient's care team: 35 minutes. Physical Exam Const alert and oriented x3 Constitutional Narrative: Pleasant middle-age female, obese, laying comfortably in bed, conversing normally, no acute distress. General Appearance: cooperative HEENT normocephalic, head/scalp atraumatic, hearing grossly normal bilaterally and nasal mucous membranes and turbinates normal Eyes PERRL, EOMs intact bilaterally and conjunctivae normal Neck full ROM Chest inspection of chest normal Resp normal respiratory effort, normal air movement, no use of accessory muscles and clear to auscultation bilaterally Cardio regular rate, regular rhythm, no murmurs and peripheral pulses 2+ throughout GI normal to inspection, nondistended, normoactive bowel sounds, soft to palpation, non-tender and non-distended no CVA tenderness Narrative: No suprapubic tenderness noted on exam. Catheter removed on 09/07, patient voiding on her own without issue. Bladder / Kidney Exam: catheter in place and bladder normal to palpation Back/Spine normal ROM Extremity normal to inspection, full ROM and no pedal edema Skin no rashes or lesions noted Neuro no focal motor deficits and no sensory deficits noted Speech: speech normal Psych mental status grossly normal Weight / BMI Weight Weight: 94.9 kg Body Mass Index (BMI) 35.9 ABG / Lab / Microbiology Data 09/10/23 07:29 09/09/23 06:05 Laboratory: Laboratory Results - last 24 hr 09/09/23 11:10: POC Glucose 192 H 09/09/23 16:15: WBC 5.2, RBC 2.80 L, Hgb 8.9 L, Hct 27.7 L, MCV 98.9, MCH 31.8, MCHC 32.1, RDW Std Deviation 51.6 H, RDW Coeff of Tomi 14.6, Plt Count 222, MPV 9.7 09/09/23 16:24: POC Glucose 134 H 09/09/23 22:26: POC Glucose 133 H 09/10/23 05:54: POC Glucose 161 H 09/10/23 07:29: WBC 4.5, RBC 2.56 L, Hgb 8.3 L, Hct 25.7 L, MCV 100.4 H, MCH 32.4 H, MCHC 32.3, RDW Std Deviation 52.9 H, RDW Coeff of Tomi 14.7 H, Plt Count 199, MPV 10.0 09/10/23 07:59: POC Glucose 190 H Microbiology: Microbiology 09/06/23 12:40 Urine Catheter - Gaspar Urine Culture - Final Enterococcus faecalis D/C Instructions Discharge Diet: No restrictions Weight Bearing Status: Full weight bearing Meaningful Use Info Meaningful Use Diagnoses (Choose all that apply): None applicable Discharge Plan Admission Admit Date/Time: 09/06/23 16:33 Primary Reason for Your Visit: Hematuria Attending Provider: Jamie Manriqeu Primary Care Provider: Margo Tatum Consulting Providers: Navdeep Bourgeois; Berenice Short Instructions Additional Instructions / Restrictions: We have made several changes to her medications, as you are blood pressure was borderline low here and you are off of most of your heart failure medications. The following changes were made: ? Take Lasix 20 mg daily (decreased from 40 mg daily) ? Take spironolactone 12.5 mg daily (decreased from 50 mg daily) ? Take glipizide 10 mg daily (decreased from 10 mg twice daily) ? Take Coreg 6.25 mg twice daily (decreased from 25 mg twice daily) ? STOP taking the following meds: Entresto, Farxiga, ibuprofen Please take 4 more days of Macrobid to complete a 7-day course of antibiotics total. Please call the cardiology and endocrinology office to schedule follow-up appointments within the next few weeks and they can make further adjustments to your medications as needed. Follow-up with Dr. Short in the office next week and please have a repeat CBC drawn at that time to check your hemoglobin level. If you have recurrence of your hematuria (blood in the urine), please come back to the hospital. Discharge Orders/Prescriptions Prescriptions: New nitrofurantoin monohyd/m-cryst 100 mg Capsule 100 mg PO BID 4 Days Qty: 8 0RF furosemide [Lasix] 20 mg tablet 20 mg PO DAILY 30 Days Qty: 30 2RF Continued insulin glargine [Lantus Solostar U-100 Insulin] 100 unit/mL (3 mL) insulin pen 30 unit subcut DAILY (DME) FreeStyle Sanam 2 [place] Misc See Rx Instructions .Route Qty: 1 0RF Rx Instructions: As directed Trulicity 1.5 mg/0.5 mL pen injector 1.5 mg subcut QWEEK Qty: 2 3RF tizanidine 4 mg tablet 4 mg PO QHS Patient Comments: take 1 tablet by mouth every evening diphenhydramine HCl 25 mg Tablet 25 mg PO Q4H PRN PRN (Reason: Allergy Symptoms) promethazine 25 mg tablet 25 mg PO TID PRN PRN (Reason: Nausea And Vomiting) Patient Comments: take 1 tablet by mouth three times a day if needed for nausea and vomiting hydrocodone-acetaminophen 5-325 mg tablet 1 tab PO Q8H PRN (Reason: Check with primary doctor) omeprazole magnesium [Prilosec OTC] 20 mg tablet,delayed release (DR/EC) 20 mg PO DAILY Movantik 25 mg tablet 25 mg PO QAM PRN (Reason: Check with primary doctor) Rx Instructions: must be taken on empty stomach; no food 1 hr after or 2-3 hrs before dose insulin lispro [Humalog KwikPen Insulin] 100 unit/mL insulin pen 14 unit subcut TIDCM (DME) pen needle, diabetic [BD Ultra-Fine [place] Pen Needle] 32 gauge x 5/32 needle See Rx Instructions .Route Qty: 100 5RF Rx Instructions: 4x/day (DME) FreeStyle Sanam 2 Sensor Kit See Rx Instructions .Route Qty: 2 5RF Rx Instructions: 1 sensor q 14 days cholecalciferol (vitamin D3) 50 mcg (2,000 unit) capsule 1,000 unit PO DAILY methimazole 10 mg tablet 10 mg PO DAILY Qty: 90 1RF clopidogrel [Plavix] 75 mg tablet 75 mg PO DAILY Qty: 90 3RF Hold Instructions: Resume on 09/04/23. Eliquis 5 mg tablet See Rx Instructions .ROUTE .COMPLEX Qty: 180 3RF Hold Instructions: Resume on 09/04/23. Dose Instruction: take 1 tablet by mouth twice a day Patient Comments: since 08/25 Rx Instructions: take 1 tablet by mouth twice a day atorvastatin 80 mg tablet See Rx Instructions .ROUTE .COMPLEX Qty: 360 0RF Dose Instruction: take 1 tablet by mouth at bedtime Rx Instructions: take 1 tablet by mouth at bedtime isosorbide mononitrate 30 mg tablet extended release 24 hr See Rx Instructions .ROUTE .COMPLEX Qty: 360 0RF Dose Instruction: take 1 tablet by mouth once daily Rx Instructions: take 1 tablet by mouth once daily Changed carvedilol 25 mg tablet 6.25 mg PO BID 30 Days Qty: 180 2RF Rx Instructions: must administer with a meal/food glipizide 10 mg tablet extended release 24hr 10 mg PO DAILY 30 Days Qty: 180 2RF spironolactone 50 mg tablet 12.5 mg PO DAILY 30 Days Qty: 90 2RF Discontinued Farxiga 10 mg tablet 10 mg PO DAILY Entresto 97-103 mg tablet 1 tab PO BID ibuprofen 200 mg tablet 200 mg PO Q6H PRN (Reason: fever or pain) Hold Instructions: until after you see Dr. Short furosemide 40 mg tablet See Rx Instructions .ROUTE .COMPLEX Qty: 90 3RF Dose Instruction: take 1 tablet by mouth once daily Rx Instructions: take 1 tablet by mouth once daily Referrals / Follow Up: Margo Tatum DO [Primary Care Provider] - (Please call and follow up ) Disposition Disposition (needs filled in before D/C Order can be placed): Home, Self Care Charges/Coding Visit Charges Inpatient E&M: 90221 Disch Hosp >30min
== END 2023-09-10 11:22 | disposition home or self-care (01) | DRG 669 ==
LOC: ED 16:41 → ICU 17:57 → PCU 09-08 16:51
PROVIDERS: Urology; Admitting Provider Internal Medicine; Emergency Provider Emergency Medicine; PCP Family Medicine; Visit Provider Hospitalist
PROC: 0TBB8ZX Excision of Bladder, Via Natural or Artificial Opening Endoscopic, Diagnostic (ICD-10-PCS; principal; 2023-09-08 14:15)
DX: N30.31 Trigonitis with hematuria (principal); D62 Acute posthemorrhagic anemia; I50.22 Chronic systolic (congestive) heart failure; I11.0 Hypertensive heart disease with heart failure; E11.9 Type 2 diabetes mellitus without complications; E05.90 Thyrotoxicosis, unspecified without thyrotoxic crisis or storm; E66.9 Obesity, unspecified; B95.2 Enterococcus as the cause of diseases classified elsewhere; J44.9 Chronic obstructive pulmonary disease, unspecified; Z79.4 Long term (current) use of insulin; I48.0 Paroxysmal atrial fibrillation; E78.5 Hyperlipidemia, unspecified; I25.10 Atherosclerotic heart disease of native coronary artery without angina pectoris; I25.5 Ischemic cardiomyopathy; K21.9 Gastro-esophageal reflux disease without esophagitis; F41.9 Anxiety disorder, unspecified; I44.7 Left bundle-branch block, unspecified; I25.2 Old myocardial infarction; Z95.5 Presence of coronary angioplasty implant and graft; Z95.810 Presence of automatic (implantable) cardiac defibrillator; Z68.35 Body mass index [BMI] 35.0-35.9, adult; Z79.01 Long term (current) use of anticoagulants; Z79.02 Long term (current) use of antithrombotics/antiplatelets; Z79.84 Long term (current) use of oral hypoglycemic drugs; Z79.85 Long-term (current) use of injectable non-insulin antidiabetic drugs; Z79.899 Other long term (current) drug therapy; Z86.16 Personal history of COVID-19; Z87.891 Personal history of nicotine dependence
CPT/HCPCS: 36415; 51702; 80048; 81001; 82728; 82962; 83540; 83550; 85025; 85027; 85610; 87077; 87086; 87088; 87186; 88305; 94668; 99252; 99285; J7030; J7050; A4216; G0463; J2405

== ENCOUNTER → 2024-01-05 | Outpatient (CLI) | payer OTHER, SELFPAY ==
[2024-01-03 09:13] VITALS: BMI 35.5
--- NOTE | 2024-01-05 11:48 | US_ITS ---
STUDY: THYROID ULTRASOUND REASON FOR EXAM: Female, 53 years old. 6 month follow-up TECHNIQUE: Ultrasound evaluation of the thyroid was performed with real-time and static jesus-scale imaging. COMPARISON: Including May 18, 2023. FINDINGS: RIGHT LOBE: The right lobe of the thyroid gland measures 5.5 x 2.1 x 1.5 cm. There is a heterogeneous echotexture. There is 2.1 x 1.5 cm mixed solid and cystic isoechoic nodule in the lower aspect. LEFT LOBE: The left lobe of the thyroid gland measures 6.3 x 2.1 x 2.0 cm. There is a heterogeneous echotexture. There is 2.2 x 1.9 cm mixed solid and cystic isoechoic nodule with focal calcification in the mid aspect. There is 1.1 x 0.6 cm mostly solid echogenic nodule in the mid aspect. There is 0.7 x 0.7 cm cystic nodule in the lower aspect. ISTHMUS: The isthmus measures 0.3 cm. The regional lymph nodes are normal. US/Thyroid IMPRESSION: Diffuse multinodular goiter. Dominant and solid lesion on the left are mildly suspicious (TI RADS TR 3). Continued follow-up recommended Electronically Signed: Rell Redd MD at 12:25 EDT ,
== END | disposition home or self-care (01) ==
LOC: US 11:46
PROVIDERS: PCP Family Medicine; Referring Provider Surgery; Visit Provider Surgery
DX: E04.2 Nontoxic multinodular goiter (principal)
CPT/HCPCS: 76536

== ENCOUNTER 2024-01-19 11:38 | Observation (INO) | payer OTHER, MEDICARE, SELFPAY ==
[2024-01-03 09:13] VITALS: BMI 35.5
[2024-01-19] VITALS (8 sets, daily range): BP systolic 132–157; BP diastolic 72–100; PULSE 72–86; RESP 14–18; TEMP 36.2–36.8; O2SAT 97–100; BMI 35.4; BMI 34.9
--- NOTE | 2024-01-19 11:47 | EKG12_ITS ---
Test Reason : CP Blood Pressure : / mmHG Vent. Rate : 076 BPM Atrial Rate : 076 BPM P-R Int : 162 ms QRS Dur : 150 ms QT Int : 482 ms P-R-T Axes : 051 048 -05 degrees QTc Int : 542 ms Atrial-sensed ventricular-paced rhythm with occasional AV dual-paced complexes and with frequent Shekhar ature ventricular complexes Biventricular pacemaker detected Abnormal ECG Confirmed by Edward Hinkle ([id number]), editorial manager GUILLERMO LAROSE ([id number]) on 01/23/2024 9:40:41 AM Referred By: VONDA/TIERNEY Confirmed By:Edward Hinkle
[2024-01-19] MEDS: Aspirin 81 MG TAB.CHEW 324 MG PO (11:54)
[2024-01-19 11:57] LABS: Absolute Lymphocyte Count 1.36 X10^3/uL (0.83-4.51); Absolute Neutrophil Count 4.1 X10^3/uL (2.0-7.7); Basophil# 0.03 X10^3/uL; Basophil% 0.5 % (0-1); Eosinophils% 1.7 % (0-5); Hematocrit 41.7 % (37-47); Lymphocyte # 1.36 X10^3/ul (0.83-4.51); Lymphocyte % 22.6 % (19-41); Mean Corp Hgb Conc 31.2 g/dL (32-36); Mean Corpuscular Hgb 27.7 pg (27.0-32.0); Mean Corpuscular Volume 88.9 fL (81-99); Mean Platelet Vol. 10.6 fl (6.2-12.0); Monocyte# 0.43 X10^3/uL; Monocyte% 7.1 % (0-10); NRBC Flagged by Analyzer 0 % (0-5); Neutrophil # 4.09 X10^3/uL (2.7-7.7); Neutrophil % 67.9 % (47-70); Platelet Count 190 K/mm3 (150-450); RBC Distribution Width CV 15.7 % (11.6-14.6); RBC Distribution Width SD 50.4 fl (35.1-43.9); Red Blood Count 4.69 M/mm3 (4.2-5.4)
--- NOTE | 2024-01-19 12:01 | ED.VIS.CHEST ---
HPI History of Present Illness Chief Complaint: Chest Pain Informant: patient Onset/Context/Timing Onset: Today and Yesterday Activity at onset: sudden Timing: Intermittent Quality: Positive for Dull, Heaviness and - (Squeezing my heart) Location: Substernal Current Severity: Mild Maximum Severity: Moderate Worsened By: Nothing Relieved By: Nothing Associated Symptoms: Positive for Dyspnea Narrative Narrative: 53-year-old female extensive past medical history of diabetes, A-fib, cardiomyopathy, prior SD, COPD with a pacemaker. On Eliquis. 1 prior cardiac stent about 2 years ago. States she has been having intermittent chest pain since 6:00 last night. It comes and goes. Feels like someone squeezing my heart. Midsternal pain. Similar to her prior cardiac chest pain. Saw her visitor services assistant several weeks ago who is getting her set up for outpatient stress test and echocardiogram. Prior Similar Symptoms: Yes Recent Illness/Hospitalization: No CVD Risk Factors: Positive for Hypertension, Diabetes and Hypercholesterolemia PE Risk Factors: Negative for Recent Travel/Surgery, Recent Immobilization, Prior DVT or PE, Cancer or OCP + Smoking + >/=35 TAD Risk Factors: Negative for Marfan's Syndrome [facility] Medical History (Updated 01/19/24 @ 13:[address] Víctor Alvarez MD) Type 2 diabetes mellitus Antiplatelet or antithrombotic long-term use Anticoagulant long-term use Presence of cardiac 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 therapy defibrillator (CASE FILLER-D) Diabetes Atrial fibrillation Coronary artery disease Hypertension Paroxysmal atrial fibrillation Hyperthyroidism Vomiting Hirsutism Chronic nausea Non-ST elevation (NSTEMI) myocardial infarction Difficult intubation Syncope Thyroid nodule Kidney stones Former smoker COPD (chronic obstructive pulmonary disease) Irregular heart beat Myocardial infarct Seizures COVID-19 virus infection Cardiomyopathy, ischemic Atherosclerotic heart disease of [place] coronary artery without angina pectoris HFrEF (heart failure with reduced ejection fraction) Obesity Left bundle branch block (LBBB) Non-ischemic cardiomyopathy History of non-ST elevation myocardial infarction (NSTEMI) (09/08/21) Hyperglycemia due to type 2 diabetes mellitus Chronic low back pain Hyperlipidemia Benign hypertension Home Medications ?Medication ?Instructions ?Recorded ?Last Taken ?Type BD Ultra-Fine [place] Pen Needle 32 #100 ea 07/29/22 Unknown Rx gauge x (pen needle, diabetic) diphenhydramine HCl 25 mg tablet 25 mg PO Q4H PRN PRN Allergy 08/06/22 Unknown History Symptoms hydrocodone-acetaminophen 5-325mg 1 tab PO Q8H PRN Check with 08/06/22 08/06/22 10:00 History 5mg-325mg primary doctor naloxegol 25 mg tablet (Movantik) 25 mg PO QAM PRN Check with 08/06/22 Unknown History primary doctor omeprazole magnesium 20 mg 20 mg PO DAILY Check with primary 08/06/22 Unknown History tablet,delayed release (Prilosec doctor OTC) promethazine 25 mg tablet 25 mg PO TID PRN PRN Nausea And 08/06/22 Unknown History Vomiting tizanidine 4 mg tablet 4 mg PO QHS 08/06/22 08/05/22 History insulin glargine 100 unit/mL (3 30 unit subcut DAILY Check with 10/20/22 Unknown History mL) subcutaneous pen (Lantus primary doctor Solostar U-100 Insulin) insulin lispro 100 unit/mL 14 unit subcut TIDCM Check with 10/20/22 Unknown History subcutaneous pen (Humalog KwikPen primary doctor (U-100) Insulin) cholecalciferol (vitamin D3) 50 1,000 unit PO DAILY 03/08/23 Unknown History mcg (2,000 unit) capsule clopidogrel 75 mg tablet (Plavix) 75 mg PO DAILY #90 tabs 05/16/23 Unknown Rx atorvastatin 80 mg tablet See Rx Instructions .Route 06/09/23 Unknown Rx .COMPLEX #360 TABLETS isosorbide mononitrate 30 mg See Rx Instructions .Route 06/09/23 Unknown Rx tablet,extended release 24 hr .COMPLEX #360 TABLETS dulaglutide 1.5 mg/0.5 mL 1.5 mg (0.5 mL) subcut QWEEK #2 mL 08/11/23 Unknown Rx subcutaneous pen injector (Trulicity) furosemide 20 mg tablet (Lasix) 20 mg PO DAILY 30 days #30 tabs 09/10/23 Unknown Rx glipizide 10 mg tablet, extended 10 mg PO DAILY diabetes 30 days 09/10/23 Unknown Rx release 24 hr #180 tabs methimazole 10 mg tablet 10 mg PO DAILY #90 tabs 09/12/23 Unknown Rx Dexcom G7 Sensor (blood-glucose #3 ea 10/10/23 Unknown Rx sensor) blood-glucose meter,continuous #1 ea 10/10/23 Unknown Rx (Dexcom G7 [employer] Products Printer) apixaban 5 mg tablet (Eliquis) See Rx Instructions .Route 12/13/23 Unknown Rx .COMPLEX #180 tabs dapagliflozin propanediol 10 mg 10 mg PO DAILY 12/13/23 Unknown History tablet (Farxiga) melatonin 10 mg capsule 10 mg PO HS PRN insomnia 12/13/23 Unknown History sacubitril 97 mg-valsartan 103 mg 1 tab PO BID #180 tabs 12/13/23 Unknown Rx tablet (Entresto) spironolactone 50 mg tablet 50 mg PO DAILY 12/13/23 Unknown History carvedilol 25 mg tablet 25 mg PO BID #180 tabs 12/29/23 Unknown Rx Allergy/AdvReac Type Severity Reaction Status Date / Time amoxicillin trihydrate (From AdvReac Vomiting Verified 01/19/24 11:18 Augmentin) potassium clavulanate (From AdvReac Vomiting Verified 01/19/24 11:18 Augmentin) Family History Father Myocardial infarction Cancer prostate, leukemia Agent orange exposure Diabetes Sister Diabetes COPD (chronic obstructive pulmonary disease) Mother CVA (cerebral vascular accident) Hypertension Surgical History History of bladder surgery (~09/2023) History of cholecystectomy History of appendectomy History of coronary artery stent placement (05/19/21) Status post insertion of nerve stimulator History of laparoscopy History of tonsillectomy History of cholecystectomy (1991) History of hysterectomy History of left heart catheterization (09/14/21) History of back surgery Social History household members: significant other Smoking Status: Former smoker how long ago did patient quit smoking: Quit 1990, smoke 2 ppd since teen until quit. alcohol intake: current alcohol intake frequency: holidays/special occasions only substance use type: does not use caffeine: Yes ROS ROS ED ROS Narrative Denies recent illness. Constitutional Constitutional ED: Denies chills or fever(s) Eyes Eyes: Reports none ENT ENT ED: Denies ear pain Cardiovascular Cardiovascular: Reports as per HPI and chest pain Respiratory/Chest Respiratory/Chest: Reports dyspnea; Denies cough Gastrointestinal Gastrointestinal: Denies abdominal pain Genitourinary Genitourinary ED: Denies dysuria or hematuria Musculoskeletal Musculoskeletal: Denies arthralgias Integumentary Denies abscess Neurologic Neurologic: Denies headache(s) Psychiatric Psychiatric: Denies anxiety Endocrine Endocrinology: Denies cold intolerance Hematologic/Lymphatic Hematologic/Lymphatic: Denies easy bleeding, easy bruising or lymphadenopathy Allergic/Immunologic Allergic/Immunologic ED: Denies mouth swelling, tongue swelling or urticaria EXAM Physical Exam Narrative Exam Narrative: 53-year-old female vital signs are stable afebrile. Pulse ox 97% on room air no hypoxia. H EENT exam unremarkable. Lungs clear. Heart regular rhythm no murmur. Rate about 80. Chest wall and ribs nontender. No reproducible pain. Abdomen soft nontender. Moving all 4 extremities. Equal symmetrical radial pulses. 5 out of 5 outpatient case manager strength. Dorsi and plantarflexion intact. Calves are nontender. Back nontender. Patient is awake and alert no focal motor deficits. Const Vital Signs: 01/19/24 11:38 01/19/24 11:42 01/19/24 11:47 Temperature 97.1 F L Temperature Source Temporal Pulse Rate 86 Respiratory Rate 14 Respiratory Effort Normal Short of Breath Blood Pressure 148/84 H Blood Pressure Mean 105 Pulse Ox 97 Oxygen Delivery Method Room Air Room Air Positive well nourished and well developed; Negative for cachectic, contractures or unkempt General Appearance ED: well developed and NAD; Negative for unkempt, cachectic, contractures or pallor Nutritional Appearance: Negative for cachectic HEENT Reports moist mucous membranes normocephalic and atraumatic; Negative for trauma or tenderness Eyes PERRL and EOMs intact bilaterally General Eye ED: Negative for pale conjunctiva or scleral icterus Neck no lymphadenopathy, supple and no JVD General: Negative for tenderness Chest Wall inspection of chest normal and palpation of chest normal Chest: Negative for tenderness Resp normal respiratory effort and clear to auscultation bilaterally Effort and Inspection: Negative for respiratory distress Auscultation: Negative for rales, rhonchi or wheezes Cardio regular rate, regular rhythm, S1 normal heart sound, S2 normal heart sound and no murmurs Rate: Negative for bradycardia or tachycardic Rhythm: Negative for abnormal rhythm Peripheral Pulses: pulses 2+ throughout GI normal to inspection, nondistended, normoactive bowel sounds, soft to palpation, non-tender, non-distended and no masses Back/Spine no CVA tenderness and no thoracic nor lumbar tenderness Cervical Spine: Negative for cervical spine tenderness Extremity normal to inspection General Extremety ED: Negative for edema, pulses abnormal or tenderness General Extremity: Negative for edema or pulses abnormal Neuro oriented x3 and CN's II-XII intact bilaterally Sensorium / Orientation: awake, alert, oriented to person, oriented to place and oriented to time; Negative for confused, lethargic or stuporous Motor Exam: strength 5/5 throughout; Negative for general weakness or strength abnormal Psych mental status grossly normal Appearance: Negative for unkempt Attitude: No agitated Mood & Affect: Negative for depressed, anxious or tearful Skin no rashes or lesions noted and no wounds General Skin Exam: Negative for jaundice or pallor Rashes: No rashes noted Trauma: Negative for abrasion or laceration Heart Score History: Moderately Suspicious ECG: Normal Age: >45 - <65 years Risk Factors: >/= 3 Risk Factors or History of CAD Score: 4 MDM MDM MDM Narrative Medical decision making narrative: 53-year-old female extensive past medical history with nonreproducible potentially cardiac chest pain. Undergo a cardiac workup. Receive aspirin. She is already on Eliquis. Repeat exam patient doing well at 1:40 PM. She and I discussed her test results. I have the hospitalist on page for admission and further evaluation of her chest pain given her history of underlying cardiac disease. History & Record Review Discussion w/independent historian: Patient Additional record(s) reviewed:: Prior inpatient record, Prior outpatient record, Prior ED visit and Prior labs Lab Data Attestation: I reviewed the patient's lab results. Lab results narrative: CBC shows a white count of 6. H&H of 13 and 41. Platelets 190. Electrolytes show a potassium of 3.1. Gap is 9. BUN of 11 creatinine 1.1. Glucose 407. Troponin 4. Chest x-ray unremarkable. Left-sided pacemaker. Labs: Laboratory Results - last 24 hr 01/19/24 11:45 WBC 6.0 RBC 4.69 Hgb 13.0 Hct 41.7 MCV 88.9 MCH 27.7 MCHC 31.2 L RDW Std Deviation 50.4 H RDW Coeff of Tomi 15.7 H Plt Count 190 MPV 10.6 Immature Gran % (Auto) 0.200 Neut % (Auto) 67.9 Lymph % (Auto) 22.6 [place] % (Auto) 7.1 Eos % (Auto) 1.7 Baso % (Auto) 0.5 Absolute Neuts (auto) 4.1 Absolute Lymphs (auto) 1.36 Nucleated RBC % 0 Sodium 138 Potassium 3.1 L Chloride 106 Carbon Dioxide 23.0 Anion Gap 9 BUN 11 Creatinine 1.19 H Estim Creat Clear Calc 59.94 Est GFR (MDRD) Af Amer 61 Est GFR (MDRD) Non-Af 50 L BUN/Creatinine Ratio 9.2 L Glucose 407 H Calcium 9.0 Troponin I High Sens 4 Radiography Chest X-Ray - ED: 1 View, Read by ED Physician, Read by Radiologist, Heart, Lungs, Mediastinum, Bony Structures, No Acute Disease and Chronic Changes Diagnostic Testing: Clinical Impression(s) from Imaging Studies Chest X-Ray 01/19/24 12:10 IMPRESSION: No radiographic evidence of acute cardiopulmonary disease. Electronically Signed: Thien Ballesteros MD at 12:26 EDT , Chest x-ray, portable, single view interpreted both by myself and the radiologist shows no acute abnormality. Normal cardiac silhouette. Normal lung benavides. Left-sided pacemaker. Rhythm Strip Rhythm Strip: Paced Rate: 76 Ectopy: PVC(s) EKG Initial EKG: Attestation: I personally reviewed and interpreted this EKG as follows: Interpretation: Paced Comments: Paced rhythm. Rate is 76. PVCs. Discharge Plan Triage Chief Complaint: Chest Pain ED Provider: Víctor Alvarez Dx/Rx/DC Orders Clinical Impression: Pacemaker, Chest pain, History of SD (myocardial infarction), History of COPD, Chronic anticoagulation Prescriptions: No Action insulin glargine [Lantus Solostar U-100 Insulin] 100 unit/mL (3 mL) insulin pen 30 unit subcut DAILY Trulicity 1.5 mg/0.5 mL pen injector 1.5 mg subcut QWEEK Qty: 2 3RF dapagliflozin propanediol [Farxiga] 10 mg tablet 10 mg PO DAILY melatonin 10 mg capsule 10 mg PO HS PRN (Reason: insomnia) spironolactone 50 mg tablet 50 mg PO DAILY Entresto 97-103 mg tablet 1 tab PO BID Qty: 180 3RF Eliquis 5 mg tablet See Rx Instructions .ROUTE .COMPLEX Qty: 180 3RF Dose Instruction: take 1 tablet by mouth twice a day Patient Comments: since 08/25 Rx Instructions: take 1 tablet by mouth twice a day tizanidine 4 mg tablet 4 mg PO QHS Patient Comments: take 1 tablet by mouth every evening diphenhydramine HCl 25 mg Tablet 25 mg PO Q4H PRN PRN (Reason: Allergy Symptoms) promethazine 25 mg tablet 25 mg PO TID PRN PRN (Reason: Nausea And Vomiting) Patient Comments: take 1 tablet by mouth three times a day if needed for nausea and vomiting hydrocodone-acetaminophen 5-325 mg tablet 1 tab PO Q8H PRN (Reason: Check with primary doctor) omeprazole magnesium [Prilosec OTC] 20 mg tablet,delayed release (DR/EC) 20 mg PO DAILY Movantik 25 mg tablet 25 mg PO QAM PRN (Reason: Check with primary doctor) Rx Instructions: must be taken on empty stomach; no food 1 hr after or 2-3 hrs before dose insulin lispro [Humalog KwikPen Insulin] 100 unit/mL insulin pen 14 unit subcut TIDCM furosemide [Lasix] 20 mg tablet 20 mg PO DAILY 30 Days Qty: 30 2RF glipizide 10 mg tablet extended release 24hr 10 mg PO DAILY 30 Days Qty: 180 2RF (DME) pen needle, diabetic [BD Ultra-Fine [place] Pen Needle] 32 gauge x 5/32 needle See Rx Instructions .Route Qty: 100 5RF Rx Instructions: 4x/day cholecalciferol (vitamin D3) 50 mcg (2,000 unit) capsule 1,000 unit PO DAILY clopidogrel [Plavix] 75 mg tablet 75 mg PO DAILY Qty: 90 3RF atorvastatin 80 mg tablet See Rx Instructions .ROUTE .COMPLEX Qty: 360 0RF Dose Instruction: take 1 tablet by mouth at bedtime Rx Instructions: take 1 tablet by mouth at bedtime isosorbide mononitrate 30 mg tablet extended release 24 hr See Rx Instructions .ROUTE .COMPLEX Qty: 360 0RF Dose Instruction: take 1 tablet by mouth once daily Rx Instructions: take 1 tablet by mouth once daily methimazole 10 mg tablet 10 mg PO DAILY Qty: 90 1RF (DME) Dexcom G7 Sensor Device See Rx Instructions .Route Qty: 3 3RF Rx Instructions: As directed (DME) Dexcom G7 [employer] Printer Misc See Rx Instructions .Route Qty: 1 0RF Rx Instructions: As directed carvedilol 25 mg tablet 25 mg PO BID Qty: 180 3RF Rx Instructions: must administer with a meal/food Primary Care Provider: Margo Tatum Referrals: Margo Tatum DO [Primary Care Provider] - Print Language: Dutch Disposition Disposition: Acute Care Hospital [facility]
--- NOTE | 2024-01-19 12:10 | RAD_ITS ---
INDICATION: chest pain EXAMINATION/TECHNIQUE: X-RAY - XR Chest 1 View COMPARISON: Prior study dated: 08/02/2023 FINDINGS: LINES/DEVICES: Left-sided dual-chamber cardiac pacer device in stable position. LUNGS: No consolidation, edema or effusion. No pneumothorax. MEDIASTINUM AND CARDIOVASCULAR STRUCTURES: Cardiac silhouette not enlarged. Central airways and mediastinal contour are unremarkable. BONES AND SOFT TISSUES: Management wires overlying the thoracic spine. RAD/Chest 1 View (Portable) IMPRESSION: No radiographic evidence of acute cardiopulmonary disease. Electronically Signed: Thien Ballesteros MD at 12:26 EDT ,
[2024-01-19 12:15] LABS: Anion Gap 9 (5-15); BUN 11 mg/dL (7-18); BUN/Creat Ratio 9.2 RATIO (10-20); Chloride 106 mmol/L (98-107); Creatinine, Serum 1.19 mg/dL (0.55-1.02); EST Glomerular Filtration Rate 50 mL/min (>60); Est Glom Filt Rate - Afr Amer 61 mL/min (>60); Estimated Creatinine Clearance 59.94 ml/min; Glucose 407 mg/dL (74-106); Potassium 3.1 mmol/L (3.5-5.1); Sodium Level 138 mmol/L (136-145); Troponin-I HS 4 pg/mL (3.0-54.0)
--- NOTE | 2024-01-19 14:31 | PCM.HP.STD ---
HPI - General General Date of Admission: 01/19/24 Date of Service: 01/19/24 Chief Complaint: Chest pain HPI Narrative PITO CLARK, is a 53 F who presented to the emergency department at [facility] on 01/19/2024 with a chief complaint of chest pain. Patient stated that she has been having some intermittent chest pain that was squeezing in nature with radiation to her right neck and ear. She states it similar to her previous cardiac symptoms at which time she required intervention. She did report that her symptoms have been waxing and waning and states she has a difficult time getting a deep breath but does not feel short of breath when they occur. She denies any diaphoresis or nausea. She saw cardiology several weeks ago at which time they indicated they would follow-up with a stress test and an echocardiogram. 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 She continues to have intermittent pain and we did give her sublingual nitroglycerin which seemed to help her symptoms. Vital signs in the emergency department showed a temperature of 97.1, heart rate 86, respiratory 14, blood pressure was 148/84 and oxygen saturation was 97% on room air. CBC was unremarkable. Chemistry panel showed mild hypokalemia with a potassium of 3.1 and a serum creatinine of 1.19 which is elevated from her baseline. Blood glucose was 407. She had a hemoglobin A1c done today as an outpatient and was found to be 9.9. Troponin was 4. EKG is unchanged from previous and shows no acute ST-T wave changes concerning for acute ischemia. Chest x-ray was negative for any acute cardiopulmonary process. With her marked history and ongoing symptoms despite a negative troponin admission was felt to be prudent, and cardiology will be consulted to decide whether or not they would like to proceed with stress testing or cardiac catheterization given her history and current symptoms. 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 SEAT FLAP STAPLER-D) Diabetes Atrial fibrillation Coronary artery disease Hypertension Paroxysmal atrial fibrillation Hyperthyroidism Vomiting Hirsutism Chronic nausea Non-ST elevation (NSTEMI) myocardial infarction Difficult intubation Syncope Thyroid nodule Kidney stones Former smoker COPD (chronic obstructive pulmonary disease) Irregular heart beat Myocardial infarct Seizures COVID-19 virus infection Atherosclerotic heart disease of [place] coronary artery without angina pectoris HFrEF (heart failure with reduced ejection fraction) Obesity Left bundle branch block (LBBB) Non-ischemic cardiomyopathy History of non-ST elevation myocardial infarction (NSTEMI) (09/08/21) Hyperglycemia due to type 2 diabetes mellitus Chronic low back pain Hyperlipidemia Benign hypertension Home Medications ?Medication ?Instructions ?Recorded ?Last Taken ?Type BD Ultra-Fine [place] Pen Needle 32 #100 ea 07/29/22 Unknown Rx gauge x 5/32 (pen needle, diabetic) diphenhydramine HCl 25 mg tablet 25 mg PO Q4H PRN PRN Allergy 08/06/22 Unknown History Symptoms hydrocodone-acetaminophen 5-325mg 1 tab PO Q8H PRN Check with 08/06/22 01/18/24 History 5mg-325mg primary doctor naloxegol 25 mg tablet (Movantik) 25 mg PO QAM PRN Check with 08/06/22 Unknown History primary doctor omeprazole magnesium 20 mg 20 mg PO DAILY Check with primary 08/06/22 01/19/24 History tablet,delayed release (Prilosec doctor OTC) promethazine 25 mg tablet 25 mg PO TID PRN PRN Nausea And 08/06/22 Unknown History Vomiting tizanidine 4 mg tablet 4 mg PO QHS 08/06/22 01/18/24 History insulin glargine 100 unit/mL (3 30 unit subcut DAILY Check with 10/20/22 01/19/24 History mL) subcutaneous pen (Lantus primary doctor Solostar U-100 Insulin) insulin lispro 100 unit/mL 14 unit subcut TIDCM Check with 10/20/22 01/19/24 History subcutaneous pen (Humalog KwikPen primary doctor (U-100) Insulin) cholecalciferol (vitamin D3) 50 1,000 unit PO DAILY 03/08/23 01/19/24 History mcg (2,000 unit) capsule clopidogrel 75 mg tablet (Plavix) 75 mg PO DAILY #90 tabs 05/16/23 01/19/24 Rx atorvastatin 80 mg tablet See Rx Instructions .Route 06/09/23 Unknown Rx .COMPLEX #360 TABLETS isosorbide mononitrate 30 mg See Rx Instructions .Route 06/09/23 01/19/24 Rx tablet,extended release 24 hr .COMPLEX #360 TABLETS dulaglutide 1.5 mg/0.5 mL 1.5 mg (0.5 mL) subcut QWEEK #2 mL 08/11/23 Unknown Rx subcutaneous pen injector (Trulicity) furosemide 20 mg tablet (Lasix) 20 mg PO DAILY 30 days #30 tabs 09/10/23 01/19/24 Rx glipizide 10 mg tablet, extended 10 mg PO DAILY diabetes 30 days 09/10/23 01/19/24 Rx release 24 hr #180 tabs methimazole 10 mg tablet 10 mg PO DAILY #90 tabs 09/12/23 01/19/24 Rx Dexcom G7 Sensor (blood-glucose #3 ea 10/10/23 Unknown Rx sensor) blood-glucose meter,continuous #1 ea 10/10/23 Unknown Rx (Dexcom G7 Model Maker) apixaban 5 mg tablet (Eliquis) See Rx Instructions .Route 12/13/23 Unknown Rx .COMPLEX #180 tabs dapagliflozin propanediol 10 mg 10 mg PO DAILY 12/13/23 01/19/24 History tablet (Farxiga) melatonin 10 mg capsule 10 mg PO HS PRN insomnia 12/13/23 Unknown History sacubitril 97 mg-valsartan 103 mg 1 tab PO BID #180 tabs 12/13/23 01/19/24 Rx tablet (Entresto) spironolactone 50 mg tablet 50 mg PO DAILY 12/13/23 01/19/24 History carvedilol 25 mg tablet 25 mg PO BID #180 tabs 12/29/23 Unknown Rx Allergy/AdvReac Type Severity Reaction Status Date / Time amoxicillin trihydrate (From AdvReac Vomiting Verified 01/19/24 11:18 Augmentin) potassium clavulanate (From AdvReac Vomiting Verified 01/19/24 11:18 Augmentin) Family History Father Myocardial infarction Cancer prostate, leukemia Agent orange exposure Diabetes Sister Diabetes COPD (chronic obstructive pulmonary disease) Mother CVA (cerebral vascular accident) Hypertension Surgical History History of bladder surgery (~09/2023) History of cholecystectomy History of appendectomy History of coronary artery stent placement (05/19/21) Status post insertion of nerve stimulator History of laparoscopy History of tonsillectomy History of cholecystectomy (1991) History of hysterectomy History of left heart catheterization (09/14/21) History of back surgery Social History household members: significant other Smoking Status: Former smoker how long ago did patient quit smoking: Quit 1990, smoke 2 ppd since teen until quit. alcohol intake: current alcohol intake frequency: holidays/special occasions only substance use type: does not use caffeine: Yes ROS Constitutional Constitutional: Reports fatigue and weakness; Denies anorexia, change in weight, chills, fever(s), malaise, night sweats or other Eyes Eyes: Denies blurry vision, change in eye color, change in vision, discharge from eye(s), double vision, erythema, eye pain, loss of vision or other ENT HEENT: Denies abnormal hearing, dysphagia, ear pain, epistaxis, headache(s), hearing loss, nasal congestion, nasal discharge, post nasal drip, sinus pressure, sore throat or other Cardiovascular Cardiovascular: Reports chest pain, dyspnea on exertion and other Details: Pain radiates into her right jaw and neck ; Denies claudication, edema, lightheadedness, orthopnea, palpitations, paroxysmal nocturnal dyspnea, rapid heart rate or syncope Respiratory/Chest Respiratory/Chest: Denies cough, dyspnea, excessive phlegm production, hemoptysis, productive cough, shortness of breath at rest, shortness of breath with exertion, wheezing or other Gastrointestinal Gastrointestinal: Denies abdominal pain, coffee ground emesis, constipation, diarrhea, dyspepsia, hematemesis, hematochezia, loose stools, melena, nausea, vomiting or other Genitourinary Genitourinary: Denies burning urination, difficulty urinating, dysuria, hematuria, nocturia, urinary frequency, urinary hesitancy, urinary incontinence, urinary urgency or other Musculoskeletal Musculoskeletal: Denies arthralgias, back pain, joint pain, joint stiffness, joint swelling, myalgias, neck pain or other Neurologic Neurologic: Denies abnormal gait, abnormal speech, confusion, disequilibrium, dizziness, focal weakness, headache(s), numbness, paresthesias, seizure-like activity, seizures, syncope, tingling, tremor(s) or other Psychiatric Psychiatric: Denies anxiety, depression, homicidal ideation, suicidal ideation or other Endocrine Endocrinology: Denies change in body appearance, cold intolerance, excessive sweating, heat intolerance, polydipsia, polyuria or other Hematologic/Lymphatic Hematologic/Lymphatic: Denies anemia, easy bleeding, easy bruising, lymphadenopathy or other Allergic/Immunologic Allergic/Immunologic: Denies rhinitis, hives, eczemia, asthma or other Vital Signs Vital Signs Vital Signs: 01/19/24 11:38 01/19/24 11:42 01/19/24 11:47 Temperature 97.1 F L Temperature Source Temporal Pulse Rate 86 Respiratory Rate 14 Respiratory Effort Normal Short of Breath Blood Pressure 148/84 H Blood Pressure Mean 105 Pulse Ox 97 Oxygen Delivery Method Room Air Room Air 01/19/24 13:38 01/19/24 14:04 Temperature 98 F Temperature Source Pulse Rate 80 80 Respiratory Rate 16 18 Respiratory Effort Blood Pressure 152/79 H 152/93 H Blood Pressure Mean 103 112 Pulse Ox 99 100 Oxygen Delivery Method Room Air Weight Weight: 93.6 kg Body Mass Index (BMI) 35.4 Results Lab / Micro Data 01/19/24 11:45 01/19/24 11:45 Labs: Laboratory Results - last 24 hr 01/19/24 11:45: WBC 6.0, RBC 4.69, Hgb 13.0, Hct 41.7, MCV 88.9, MCH 27.7, MCHC 31.2 L, RDW Std Deviation 50.4 H, RDW Coeff of Tomi 15.7 H, Plt Count 190, MPV 10.6, Immature Gran % (Auto) 0.200, Neut % (Auto) 67.9, Lymph % (Auto) 22.6, Kerr % (Auto) 7.1, Eos % (Auto) 1.7, Baso % (Auto) 0.5, Absolute Neuts (auto) 4.1, Absolute Lymphs (auto) 1.36, Nucleated RBC % 0, Sodium 138, Potassium 3.1 L, Chloride 106, Carbon Dioxide 23.0, Anion Gap 9, BUN 11, Creatinine 1.19 H, Estim Creat Clear Calc 59.94, Est GFR (MDRD) Af Amer 61, Est GFR (MDRD) Non-Af 50 L, BUN/Creatinine Ratio 9.2 L, Glucose 407 H, Calcium 9.0, Troponin I High Sens 4 Rhythm Strip Rhythm Strip: Paced Rate: 76 Ectopy: PVC(s) Imaging Radiology Impression Chest X-Ray 01/19/24 12:10 IMPRESSION: No radiographic evidence of acute cardiopulmonary disease. Electronically Signed: Thien Ballesteros MD at 12:26 EDT Reading Location ID and State: [facility] / [place] Tel , Service support , Assessment & Plan Assessment/Plan (1) Chest pain: (2) Hyperglycemia: (3) Uncontrolled type 2 diabetes mellitus: (4) Hypokalemia: (5) TRAE (acute kidney injury): PLAN: Plan Chest pain -Concerning for acute coronary syndrome -Patient with significant history of CAD and previous stenting initially in 2020 with a stent to her LAD -Continue home Plavix -Patient is not on dual antiplatelet therapy as she is on apixaban at baseline -Hold apixaban for now in preparation for possible cardiac catheterization and restart when okay with cardiology -Patient had hemoglobin A1c today as an outpatient and it was 9.9 -Patient in dire need of improved glycemic control -Check lipid panel -Continue atorvastatin -Continue home beta-timothy, GLP 2 inhibitor, diuretic, isosorbide mononitrate, Aldactone and Entresto -Check echocardiogram -Cardiology consultation for cardiac catheterization consideration given history and current clinical findings TRAE -Mild -Current serum creatinine is 1.19 with a baseline of 0.6-0.8 -Gentle hydration in preparation for cardiac catheterization with 1 L IV fluids then stop -Repeat lab in a.m. Hypokalemia -40 mill colons p.o. potassium given -Repeat lab in a.m. -Check a.m. magnesium and phosphorus level [id number] -Hold home oral agents except Farxiga -Hemoglobin A1c done today as an outpatient was 9.9 -Patient needs improved glycemic control -For now we will continue home insulin regiment with 30 units of basal insulin daily and 14 units 3 times daily along with a sliding scale -Cardiac/carb controlled diet but patient will be n.p.o. after midnight -Sliding scale was ordered -Recommended ongoing out-patient follow-up with endocrinology for improved glycemic control History of ischemic cardiomyopathy with chronic HFeEF -Continue home goal-directed therapy -Patient with HEEL SEAT FLAP STAPLER-D device placement in 2022 -Monitor for any signs of acute decompensation CAD/HTN/HPL -Continue home regimen Paroxysmal atrial fibrillation -Anticoagulation on hold in preparation for cardiac catheterization but restart when able -Continue home beta-timothy -Currently in sinus rhythm Chronic pain -Continue home tizanidine -As needed [place] History of nephrolithiasis -No current issues History of tobacco abuse -Remote -Encourage ongoing cessation Obesity -BMI 35.0 -Complicates treatment, prognosis, outcomes DVT prophylaxis -Patient took apixaban this morning -If patient off apixaban more than 48 hours will need to start DVT prophylaxis with subcu Lovenox versus heparin CODE STATUS -Full code as verified at the time of admission Charges/Coding Visit Charges Inpatient E&M: 71997 Init Hosp L2
--- NOTE | 2024-01-19 14:52 | PCM.CONS.C ---
Assessment & Plan Assessment/Plan (1) Angina pectoris: PLAN: Chest pain. Consider recurrent angina pectoris. History of CAD with stent placement to the LAD. Given her overall risk, recommend coronary angiography with possible revascularization. Risks benefits and alternatives explained to patient. She understand these and wishes to proceed. We will schedule her for the procedure in the morning. Continue clopidogrel. Hold apixaban. Nitrates. Continue beta-blockers. (2) Coronary artery disease: PLAN: See #1 above. (3) History of coronary artery stent placement: PLAN: See #1 above. Continue clopidogrel. (4) Paroxysmal atrial fibrillation: PLAN: On apixaban. Hold apixaban in anticipation of coronary angiography. 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 (6) Cardiomyopathy, ischemic: PLAN: Entresto, dapagliflozin, carvedilol, furosemide (7) Hyperlipidemia: QUALIFIERS: Hyperlipidemia type: mixed hyperlipidemia Qualified Code(s): E78.2 - Mixed hyperlipidemia PLAN: On atorvastatin. HPI Consult Data Date of Consult: 01/19/24 HPI Narrative Reason for Consultation: Chest pain HPI Narrative: This lady has past medical history significant for obesity, diabetes mellitus, coronary artery disease status post anterior [place] status post drug-eluting stent to the LAD, cardiomyopathy, congestive heart failure status post ICD and hypertension. Also history of paroxysmal atrial fibrillation, on anticoagulation with apixaban. Patient presented to the emergency room with complaints of intermittent anterior chest discomfort that has been occurring over the last month. Per patient, it occurs both at rest as well as with exertion. Per her, the symptoms lasts about a minute and then relieved on its own. She describes some radiation to her neck and jaw. Denies any associated diaphoresis. No shortness of breath. Per patient, she was in the process of getting scheduled for stress test as an outpatient for the symptoms. [facility] Medical History (Updated 01/19/24 @ 14:[address] 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 coronary artery without angina pectoris HFrEF (heart failure with reduced ejection fraction) Obesity Left bundle branch block (LBBB) Non-ischemic cardiomyopathy History of non-ST elevation myocardial infarction (NSTEMI) (09/08/21) Hyperglycemia due to type 2 diabetes mellitus Chronic low back pain Hyperlipidemia Benign hypertension Home Medications ?Medication ?Instructions ?Recorded ?Last Taken ?Type BD Ultra-Fine [place] Pen Needle 32 #100 ea 07/29/22 Unknown Rx gauge x 532 (pen needle, diabetic) diphenhydramine HCl 25 mg tablet 25 mg PO Q4H PRN PRN Allergy 08/06/22 Unknown History Symptoms hydrocodone-acetaminophen 5-325mg 1 tab PO Q8H PRN Check with 08/06/22 08/06/22 10:00 History 5mg-325mg primary doctor naloxegol 25 mg tablet (Movantik) 25 mg PO QAM PRN Check with 08/06/22 Unknown History primary doctor omeprazole magnesium 20 mg 20 mg PO DAILY Check with primary 08/06/22 Unknown History tablet,delayed release (Prilosec doctor OTC) promethazine 25 mg tablet 25 mg PO TID PRN PRN Nausea And 08/06/22 Unknown History Vomiting tizanidine 4 mg tablet 4 mg PO QHS 08/06/22 08/05/22 History insulin glargine 100 unit/mL (3 30 unit subcut DAILY Check with 10/20/22 Unknown History mL) subcutaneous pen (Lantus primary doctor Solostar U-100 Insulin) insulin lispro 100 unit/mL 14 unit subcut TIDCM Check with 10/20/22 Unknown History subcutaneous pen (Humalog KwikPen primary doctor (U-100) Insulin) cholecalciferol (vitamin D3) 50 1,000 unit PO DAILY 03/08/23 Unknown History mcg (2,000 unit) capsule clopidogrel 75 mg tablet (Plavix) 75 mg PO DAILY #90 tabs 05/16/23 Unknown Rx atorvastatin 80 mg tablet See Rx Instructions .Route 06/09/23 Unknown Rx .COMPLEX #360 TABLETS isosorbide mononitrate 30 mg See Rx Instructions .Route 06/09/23 Unknown Rx tablet,extended release 24 hr .COMPLEX #360 TABLETS dulaglutide 1.5 mg/0.5 mL 1.5 mg (0.5 mL) subcut QWEEK #2 mL 08/11/23 Unknown Rx subcutaneous pen injector (Trulicity) furosemide 20 mg tablet (Lasix) 20 mg PO DAILY 30 days #30 tabs 09/10/23 Unknown Rx glipizide 10 mg tablet, extended 10 mg PO DAILY diabetes 30 days 09/10/23 Unknown Rx release 24 hr #180 tabs methimazole 10 mg tablet 10 mg PO DAILY #90 tabs 09/12/23 Unknown Rx Dexcom G7 Sensor (blood-glucose #3 ea 10/10/23 Unknown Rx sensor) blood-glucose meter,continuous #1 ea 10/10/23 Unknown Rx (Dexcom G7 Microsoft Net Developer) apixaban 5 mg tablet (Eliquis) See Rx Instructions .Route 12/13/23 Unknown Rx .COMPLEX #180 tabs dapagliflozin propanediol 10 mg 10 mg PO DAILY 12/13/23 Unknown History tablet (Farxiga) melatonin 10 mg capsule 10 mg PO HS PRN insomnia 12/13/23 Unknown History sacubitril 97 mg-valsartan 103 mg 1 tab PO BID #180 tabs 12/13/23 Unknown Rx tablet (Entresto) spironolactone 50 mg tablet 50 mg PO DAILY 12/13/23 Unknown History carvedilol 25 mg tablet 25 mg PO BID #180 tabs 12/29/23 Unknown Rx Allergy/AdvReac Type Severity Reaction Status Date / Time amoxicillin trihydrate (From AdvReac Vomiting Verified 01/19/24 11:18 Augmentin) potassium clavulanate (From AdvReac Vomiting Verified 01/19/24 11:18 Augmentin) Family History Father Myocardial infarction Cancer prostate, leukemia Agent orange exposure Diabetes Sister Diabetes COPD (chronic obstructive pulmonary disease) Mother CVA (cerebral vascular accident) Hypertension Surgical History History of bladder surgery (~09/2023) History of cholecystectomy History of appendectomy History of coronary artery stent placement (05/19/21) Status post insertion of nerve stimulator History of laparoscopy History of tonsillectomy History of cholecystectomy (1991) History of hysterectomy History of left heart catheterization (04/11/22) History of back surgery Social History household members: significant other Smoking Status: Former smoker how long ago did patient quit smoking: Quit 1990, smoke 2 ppd since teen until quit. alcohol intake: current alcohol intake frequency: holidays/special occasions only substance use type: does not use caffeine: Yes Physical Exam Narrative Obese. Appears comfortable. No apparent distress. Heart sounds 1 and 2 are noted. Chest clear to auscultation bilaterally. Alert oriented x 3. No ankle edema. Risk Stratification Risk Stratification Applicable: No Objective Data Vital Signs: Vital Signs Temp Pulse Resp BP Pulse Ox O2 Del Method 98 F 80 18 152/93 H 100 Room Air 01/19/24 14:04 01/19/24 14:04 01/19/24 14:04 01/19/24 14:04 01/19/24 14:04 01/19/24 13:38 Oxygen Delivery Method Room Air Weight: 206 lb 5.643 oz Body Mass Index (BMI) 35.4 Lab / Micro Data 01/19/24 11:45 01/19/24 11:45 Labs: Laboratory Results - last 24 hr 01/19/24 11:45: WBC 6.0, RBC 4.69, Hgb 13.0, Hct 41.7, MCV 88.9, MCH 27.7, MCHC 31.2 L, RDW Std Deviation 50.4 H, RDW Coeff of Tomi 15.7 H, Plt Count 190, MPV 10.6, Immature Gran % (Auto) 0.200, Neut % (Auto) 67.9, Lymph % (Auto) 22.6, [place] % (Auto) 7.1, Eos % (Auto) 1.7, Baso % (Auto) 0.5, Absolute Neuts (auto) 4.1, Absolute Lymphs (auto) 1.36, Nucleated RBC % 0, Sodium 138, Potassium 3.1 L, Chloride 106, Carbon Dioxide 23.0, Anion Gap 9, BUN 11, Creatinine 1.19 H, Estim Creat Clear Calc 59.94, Est GFR (MDRD) Af Amer 61, Est GFR (MDRD) Non-Af 50 L, BUN/Creatinine Ratio 9.2 L, Glucose 407 H, Calcium 9.0, Troponin I High Sens 4 Rhythm Strip Rhythm Strip: Paced Rate: 76 Ectopy: PVC(s) Cardiology Labs/Tests 01/19/24 11:45: WBC 6.0, RBC 4.69, Hgb 13.0, Hct 41.7, MCV 88.9, MCH 27.7, MCHC 31.2 L, Plt Count 190, MPV 10.6, Immature Gran % (Auto) 0.200, Neut % (Auto) 67.9, Lymph % (Auto) 22.6, [place] % (Auto) 7.1, Eos % (Auto) 1.7, Baso % (Auto) 0.5, Absolute Neuts (auto) 4.1, Nucleated RBC % 0, Sodium 138, Potassium 3.1 L, Chloride 106, Carbon Dioxide 23.0, Anion Gap 9, BUN 11, Creatinine 1.19 H, Est GFR (MDRD) Af Amer 61, Est GFR (MDRD) Non-Af 50 L, BUN/Creatinine Ratio 9.2 L, Glucose 407 H, Calcium 9.0 Rhythm: EKG: Electronic ventricular pacemaker. PVCs. ECHO: Stress Test: Cardiac Cath: PCI: CT Surgery: Holter monitor: EPS: PPM: CXR: Chest CT Scan: Radiography Diagnostic Testing: Radiology Impression Chest X-Ray 01/19/24 12:10 IMPRESSION: No radiographic evidence of acute cardiopulmonary disease. Electronically Signed: Thien Ballesteros MD at 12:26 EDT ,
[2024-01-19] MEDS: Nitroglycerin (INPATIENT USE) 0.4 MG TAB.SUBL SL (15:21)
--- NOTE | 2024-01-19 15:59 | EKG12_ITS ---
Test Reason : CP ADMISSION Blood Pressure : / mmHG Vent. Rate : 068 BPM Atrial Rate : 068 BPM P-R Int : 164 ms QRS Dur : 160 ms QT Int : 484 ms P-R-T Axes : 017 062 025 degrees QTc Int : 514 ms Atrial-sensed ventricular-paced rhythm Biventricular pacemaker detected Abnormal ECG When compared with ECG of 19-JAN-2024 11:45, MANUAL COMPARISON REQUIRED, DATA IS UNCONFIRMED Confirmed by Edward Hinkle ([id number]), editor map JAYLIN FRANK ([id number]) on 01/23/2024 9:29:18 AM Referred By: Confirmed By:Edward Hinkle
--- NOTE | 2024-01-19 15:59 | ECHOD_ITS ---
Reason For Study: CAD/ASHD Procedure This was a 2D Doppler, Color Flow transthoracic echocardiogram. Exam performed portable in patient room. Left Ventricle Normal LV size. The estimated ejection fraction is 50-55 %. No evidence for diastolic dysfunction. No regional wall motion abnormalities noted. Right Ventricle Normal RV size. ICD or pacer leads identified within the right ventricle. Normal systolic function. Atria The left and right atria are normal. ICD or pacer leads identified within the right atrium. No doppler evidence for ASD. Mitral Valve There is no mitral valve stenosis. Trivial mitral valve insufficiency. Tricuspid Valve There is no tricuspid stenosis. Unable to estimate RV systolic pressure due to insufficient tricuspid regurgitant envelope. Unable to estimate RV systolic pressure due to inadequate jet, pulmonary artery pressure probably normal. Aortic Valve Trisinus/trileaflet aortic valve. There is no aortic stenosis. No aortic valve insufficiency. Pulmonic Valve There is no pulmonic valvular stenosis. Trivial pulmonic valve insufficiency. Great Vessels Normal aortic root. Pericardium/Pleural No pericardial effusion. MMode/2D Measurements & Calculations LVIDd: 4.6 cm IVSd: 1.3 cm Ao root diam: 3.4 cm LVIDs: 3.7 cm LVPWd: 1.6 cm FS: 20.0 % LAV(MOD-bp): 41.7 ml LVAd ap4: 29.3 cm2 SV(MOD-sp4): 52.5 ml LAV(MOD-sp2): 38.7 ml LVLd ap4: 7.9 cm LAV(MOD-sp4): 38.3 ml EDV(MOD-sp4): 95.2 ml EDV(sp4-el): 92.3 ml LVAs ap4: 17.9 cm2 LVLs ap4: 6.4 cm ESV(MOD-sp4): 42.8 ml ESV(sp4-el): 42.3 ml EF(MOD-sp4): 55.1 % EF(sp4-el): 54.2 % SV(sp4-el): 50.0 ml LA A4 area: 15.7 cm2 LA dimension(2D): 3.9 cm RA A4 area: 11.6 cm2 Time Measurements MV dec time: 0.19 sec Doppler Measurements & Calculations MV E max toño: 66.3 cm/sec Lat Peak E' Toño: 8.2 cm/sec Med Peak E' Toño: 6.4 cm/sec MV A max toño: 74.1 cm/sec E/E' lat: 8.0 E/E' med: 10.3 MV E/A: 0.90 MV V2 max: 91.4 cm/sec Ao V2 max: 133.2 cm/sec MV max P.3 mmHg MV dec slope: 368.5 cm/sec2 Ao max P.1 mmHg MV V2 mean: 53.9 cm/sec Ao V2 mean: 95.3 cm/sec MV mean P.3 mmHg Ao mean P.2 mmHg MV V2 VTI: 29.1 cm Ao V2 VTI: 26.9 cm AV (velocity ratio): 0.89 LV V1 max: 120.2 cm/sec PA V2 max: 120.4 cm/sec LV V1 max P.8 mmHg PA V2 mean: 82.6 cm/sec LV V1 mean P.8 mmHg LV V1 mean: 76.5 cm/sec LV V1 VTI: 24.0 cm ECHO/Echo Complete Interpretation Summary The estimated ejection fraction is 50-55 %. No evidence for diastolic dysfunction. Trivial mitral valve insufficiency. Ordering Physician: Damaris Thibodeaux Referring Physician: SUZAN KNAPP Performed By: Lisha Ruvalcaba RCS
[2024-01-19] MEDS: Potassium Chloride Oral Tablet 20 MEQ 60 MEQ PO (16:34)
[2024-01-19] MEDS: Lactated Ringers 1,000 ML 75 ML IV (16:34)
[2024-01-19] MEDS: Nitroglycerin Oint 1 INCH PACKET TD ×2 (16:35→21:46)
[2024-01-19] MEDS: Insulin Lispro 100 UNIT/ML INSULN.PEN 14 UNIT SC (16:36)
[2024-01-19] MEDS: Insulin Lispro 100 UNIT/ML INSULN.PEN SC ×2 (16:36→21:55)
[2024-01-19 17:02] LABS: Bedside Glucose 172 mg/dL (74-106)
[2024-01-19 17:48] LABS: Troponin-I HS 6 pg/mL (3.0-54.0)
[2024-01-19 20:21] LABS: Troponin-I HS 6 pg/mL (3.0-54.0)
[2024-01-19] MEDS: Carvedilol 25 MG Tablet PO (21:43)
[2024-01-19] MEDS: tiZANidine HCl 2 MG Tablet 4 MG PO (21:44)
[2024-01-19] MEDS: Atorvastatin Calcium 80 MG Tablet PO (21:44)
[2024-01-19] MEDS: SACUBITRIL/VALSARTAN 97-103 MG TABLET 1 EACH PO (21:45)
[2024-01-19 23:32] LABS: Troponin-I HS 5 pg/mL (3.0-54.0)
[2024-01-20] VITALS (13 sets, daily range): BP systolic 115–170; BP diastolic 61–94; PULSE 62–76; RESP 16; TEMP 36.7; O2SAT 97–100; BMI 35.2
[2024-01-20 01:59] LABS: Bedside Glucose 218 mg/dL (74-106)
[2024-01-20 04:44] LABS: Absolute Lymphocyte Count 1.92 X10^3/uL (0.83-4.51); Absolute Neutrophil Count 2.2 X10^3/uL (2.0-7.7); Basophil# 0.02 X10^3/uL; Basophil% 0.4 % (0-1); Eosinophil# 0.08 X10^3/uL; Eosinophils% 1.7 % (0-5); Hematocrit 34.7 % (37-47); Hemoglobin 11.1 g/dL (12.0-15.0); Lymphocyte # 1.92 X10^3/ul (0.83-4.51); Lymphocyte % 41.9 % (19-41); Mean Corpuscular Hgb 28.4 pg (27.0-32.0); Mean Corpuscular Volume 88.7 fL (81-99); Mean Platelet Vol. 10.7 fl (6.2-12.0); Monocyte# 0.31 X10^3/uL; Monocyte% 6.8 % (0-10); NRBC Flagged by Analyzer 0 % (0-5); Neutrophil # 2.24 X10^3/uL (2.7-7.7); Platelet Count 151 K/mm3 (150-450); RBC Distribution Width CV 15.9 % (11.6-14.6); RBC Distribution Width SD 51.2 fl (35.1-43.9); Red Blood Count 3.91 M/mm3 (4.2-5.4); White Blood Count 4.6 K/mm3 (4.4-11.0)
[2024-01-20 05:15] LABS: ALB/GLOB Ratio 0.8 RATIO (0.9-2.4); AST(SGOT) 11 U/L (15-37); Alanine Aminotransfer ALT/SGPT 15 U/L (13-56); Albumin, Serum 2.8 g/dL (3.2-5.0); Alkaline Phosphatase 87 U/L (45-117); Anion Gap 6 (5-15); BUN 16 mg/dL (7-18); BUN/Creat Ratio 18.9 RATIO (10-20); Calcium,Total 8.8 mg/dL (8.5-10.1); Chloride 113 mmol/L (98-107); Cholesterol 129 mg/dL (200); Creatinine, Serum 0.85 mg/dL (0.55-1.02); EST Glomerular Filtration Rate 74 mL/min (>60); Est Glom Filt Rate - Afr Amer 90 mL/min (>60); Estimated Creatinine Clearance 83.63 ml/min; Globulin 3.3 g/dL (2.2-4.2); Glucose 334 mg/dL (74-106); High Density Lipoprotein 45 mg/dL; Potassium 3.9 mmol/L (3.5-5.1); Protein, Total 6.1 g/dL (6.4-8.2); Sodium Level 140 mmol/L (136-145); Triglycerides 189 mg/dL; Very Low Density Lipoprotein 38 mg/dL (5-40)
[2024-01-20] MEDS: Nitroglycerin Oint 1 INCH PACKET TD (06:22)
[2024-01-20] MEDS: SACUBITRIL/VALSARTAN 97-103 MG TABLET 1 EACH PO (06:24)
[2024-01-20] MEDS: Carvedilol 25 MG Tablet PO (06:24)
[2024-01-20] MEDS: Pantoprazole Sodium 20 MG Tablet PO (06:25)
[2024-01-20] MEDS: Clopidogrel Bisulfate 75 MG Tablet PO (06:25)
[2024-01-20 07:00] LABS: Bedside Glucose 261 mg/dL (74-106)
[2024-01-20] MEDS: 0.9% Saline Lock 10 ML Syringe IV ×2 (07:46→08:48)
--- NOTE | 2024-01-20 12:45 | PCM.DC ---
Discharge Instructions Diet Discharge Diet: 1800 Calorie Control Diet Activity Discharge Activity: Return to Normal Activity Weight Bearing Status: Full weight bearing Follow Up Care Test Results: Test results from this visit will be discussed in further detail at your follow-up appointment, if applicable. Discharge Plan Admission Admit Date/Time: 01/19/24 14:21 Primary Reason for Your Visit: chest pain Attending Provider: Aidan Staples Primary Care Provider: Margo Tatum Consulting Providers: Estrellita Alarcon; Damaris Thibodeaux Discharge Orders/Prescriptions Prescriptions: New ranolazine 500 mg tablet extended release 12 hr 500 mg PO BID Qty: 60 0RF Continued insulin glargine [Lantus Solostar U-100 Insulin] 100 unit/mL (3 mL) insulin pen 30 unit subcut DAILY Trulicity 1.5 mg/0.5 mL pen injector 1.5 mg subcut QWEEK Qty: 2 3RF dapagliflozin propanediol [Farxiga] 10 mg tablet 10 mg PO DAILY melatonin 10 mg capsule 10 mg PO HS PRN (Reason: insomnia) spironolactone 50 mg tablet 50 mg PO DAILY Entresto 97-103 mg tablet 1 tab PO BID Qty: 180 3RF Eliquis 5 mg tablet See Rx Instructions .ROUTE .COMPLEX Qty: 180 3RF Dose Instruction: take 1 tablet by mouth twice a day Patient Comments: since 08/25 Rx Instructions: take 1 tablet by mouth twice a day tizanidine 4 mg tablet 4 mg PO QHS Patient Comments: take 1 tablet by mouth every evening diphenhydramine HCl 25 mg Tablet 25 mg PO Q4H PRN PRN (Reason: Allergy Symptoms) promethazine 25 mg tablet 25 mg PO TID PRN PRN (Reason: Nausea And Vomiting) Patient Comments: take 1 tablet by mouth three times a day if needed for nausea and vomiting hydrocodone-acetaminophen 5-325 mg tablet 1 tab PO Q8H PRN (Reason: Check with primary doctor) omeprazole magnesium [Prilosec OTC] 20 mg tablet,delayed release (DR/EC) 20 mg PO DAILY Movantik 25 mg tablet 25 mg PO QAM PRN (Reason: Check with primary doctor) Rx Instructions: must be taken on empty stomach; no food 1 hr after or 2-3 hrs before dose insulin lispro [Humalog KwikPen Insulin] 100 unit/mL insulin pen 14 unit subcut TIDCM furosemide [Lasix] 20 mg tablet 20 mg PO DAILY 30 Days Qty: 30 2RF glipizide 10 mg tablet extended release 24hr 10 mg PO DAILY 30 Days Qty: 180 2RF (DME) pen needle, diabetic [BD Ultra-Fine [place] Pen Needle] 32 gauge x 5/32 needle See Rx Instructions .Route Qty: 100 5RF Rx Instructions: 4x/day cholecalciferol (vitamin D3) 50 mcg (2,000 unit) capsule 1,000 unit PO DAILY clopidogrel [Plavix] 75 mg tablet 75 mg PO DAILY Qty: 90 3RF atorvastatin 80 mg tablet See Rx Instructions .ROUTE .COMPLEX Qty: 360 0RF Dose Instruction: take 1 tablet by mouth at bedtime Rx Instructions: take 1 tablet by mouth at bedtime isosorbide mononitrate 30 mg tablet extended release 24 hr See Rx Instructions .ROUTE .COMPLEX Qty: 360 0RF Dose Instruction: take 1 tablet by mouth once daily Rx Instructions: take 1 tablet by mouth once daily methimazole 10 mg tablet 10 mg PO DAILY Qty: 90 1RF (DME) Dexcom G7 Sensor Device See Rx Instructions .Route Qty: 3 3RF Rx Instructions: As directed (DME) Dexcom G7 Mine Superintendent Misc See Rx Instructions .Route Qty: 1 0RF Rx Instructions: As directed carvedilol 25 mg tablet 25 mg PO BID Qty: 180 3RF Rx Instructions: must administer with a meal/food Referrals / Follow Up: Margo Tatum DO [Primary Care Provider] - Within 2 Weeks (To discuss control of Diabetes) Kirk Mitchell NP, TURBINE ATTENDANT-C [Med Staff - Adv Practice Prof] - Within 1 Month Disposition Disposition (needs filled in before D/C Order can be placed): Home, Self Care
--- NOTE | 2024-01-20 12:51 | CHAPLAIN ---
Type of Pastoral Visit ___ Initial Visit ___ Follow-up Visit ___ On-call Visit ___ General Patient Visit ___ Spiritual Assessment ___ Family Conference ___ Bereavement ___ Rapid Response ___ Code Blue ___ Other (describe below) Pastoral Care Referral From ___ Patient ___ Family ___ Nurse ___ Physician ___ Boiler Technician ___ Supply Requirements Officer ___ Other (describe below) Sacrament/Intervention ___ Active listening ___ Anointing ___ Roman Catholic ___ Bereavement ___ Communion ___ Jackelin exploration ___ ___ Life review ___ Prayer ___ Reconciliation ___ Sacrament of Sick ___ Supportive presence ___ Wedding ___ Other (describe below) Pastoral Comments patient and bed are out of the room; left a calling card
[2024-01-20] MEDS: 0.9% Normal Saline (1000mL) 1,000 ML 75 ML IV (12:58)
--- NOTE | 2024-01-20 13:01 | PCM.DC.SUM ---
Providers Date of Admission: 01/19/24 Date of Discharge: 01/20/24 Primary Care Physician: Dr. Margo Tatum, Consultations 01/19/24 15:59 Consult: Cardiology Routine Consulting Provider: Estrellita Alarcon Reason for Consult: Chest Pain EMERGENT Consult: No MD Notified: Yes Date Notified: 01/19/24 Time Notified: 14:25 Method of Notification: Text Reason For Visit: CP, CAD HX W/STENT, DM, COPD Diagnosis Discharge Diagnosis (1) Chest pain: Status: Acute Code(s): R07.9 - Chest pain, unspecified (2) Hyperglycemia: Status: Acute Code(s): R73.9 - Hyperglycemia, unspecified (3) Uncontrolled type 2 diabetes mellitus: Status: Acute (4) Hypokalemia: Status: Acute Code(s): E87.6 - Hypokalemia (5) TRAE (acute kidney injury): Status: Acute Code(s): N17.9 - Acute kidney failure, unspecified Plan 1. Noncardiac chest pain-musculoskeletal in nature #2 coronary artery disease #3 ischemic cardiomyopathy #4 uncontrolled type 2 diabetes Medications at Discharge Home Medications BD Ultra-Fine [place] Pen Needle 32 gauge x 5/32 (pen needle, diabetic) #100 ea 07/29/22 diphenhydramine HCl 25 mg tablet 25 mg PO Q4H PRN PRN Allergy Symptoms 08/06/22 hydrocodone-acetaminophen 5-325mg 5mg-325mg 1 tab PO Q8H PRN pain 08/06/22 naloxegol 25 mg tablet (Movantik) 25 mg PO QAM PRN pain 08/06/22 omeprazole magnesium 20 mg tablet,delayed release (Prilosec OTC) 20 mg PO DAILY reflux 08/06/22 promethazine 25 mg tablet 25 mg PO TID PRN PRN Nausea And Vomiting 08/06/22 tizanidine 4 mg tablet 4 mg PO QHS muscle spasms 08/06/22 insulin glargine 100 unit/mL (3 mL) subcutaneous pen (Lantus Solostar U-100 Insulin) 30 unit subcut DAILY diabetes 10/20/22 insulin lispro 100 unit/mL subcutaneous pen (Humalog KwikPen (U-100) Insulin) 14 unit subcut TIDCM diabetes 10/20/22 cholecalciferol (vitamin D3) 50 mcg (2,000 unit) capsule 1,000 unit PO DAILY vitamin 03/08/23 clopidogrel 75 mg tablet (Plavix) 75 mg PO DAILY anti platelet #90 tabs 05/16/23 atorvastatin 80 mg tablet See Rx Instructions .Route .COMPLEX cholesterol #360 TABLETS 06/09/23 isosorbide mononitrate 30 mg tablet,extended release 24 hr See Rx Instructions .Route .COMPLEX heart #360 TABLETS 06/09/23 dulaglutide 1.5 mg/0.5 mL subcutaneous pen injector (Trulicity) 1.5 mg (0.5 mL) subcut QWEEK diabetes #2 mL 08/11/23 furosemide 20 mg tablet (Lasix) 20 mg PO DAILY diuretic 30 days #30 tabs 09/10/23 glipizide 10 mg tablet, extended release 24 hr 10 mg PO DAILY diabetes 30 days #180 tabs 09/10/23 methimazole 10 mg tablet 10 mg PO DAILY thyroid #90 tabs 09/12/23 Dexcom G7 Sensor (blood-glucose sensor) #3 ea 10/10/23 blood-glucose meter,continuous (Dexcom G7 Website Developer) #1 ea 10/10/23 apixaban 5 mg tablet (Eliquis) See Rx Instructions .Route .COMPLEX blood thinner #180 tabs 12/13/23 dapagliflozin propanediol 10 mg tablet (Farxiga) 10 mg PO DAILY diabetes 12/13/23 melatonin 10 mg capsule 10 mg PO HS PRN insomnia 12/13/23 sacubitril 97 mg-valsartan 103 mg tablet (Entresto) 1 tab PO BID heart #180 tabs 12/13/23 spironolactone 50 mg tablet 50 mg PO DAILY blood pressure 12/13/23 carvedilol 25 mg tablet 25 mg PO BID blood pressure #180 tabs 12/29/23 ranolazine 500 mg tablet,extended release,12 hr 500 mg PO BID #60 tabs 01/20/24 Hospital Course Operations None Procedures Cardiac catheterization Summary of Care Provided Minutes Spent on Discharge: 31 Hospital Course: This 53-year-old white female was seen in the emergency room at [facility] with complaints of intermittent chest pain since 6 PM the night before. She described the chest pain is squeezing in nature and midsternal in location. Workup in the emergency room included a troponin which was normal, chest x-ray showed no acute cardiopulmonary disease, EKG showed a paced rhythm. Patient was placed in observation status on PCU, she was seen in consultation by cardiology, cardiac enzymes remain normal, patient underwent a cardiac catheterization which showed no occlusive coronary disease that required intervention. It was recommended the patient be discharged home on Ranexa as a additional medication. On 01/20/2024, patient was seen and examined: On examination she appeared in good health and spirits, she does not appear to be in any distress. Vital signs as documented. Skin warm and dry and without overt rashes. Neck without JVD, thyroid appears normal, trachea is midline, neck is supple. Lungs clear, normal air movement was noted. Heart exam notable for regular rhythm, normal sounds and absence of murmurs, rubs or gallops. Abdomen unremarkable and without evidence of organomegaly, masses, or abdominal aortic enlargement, bowel sounds are present in all 4 quadrants, no abdominal tenderness was noted. Extremities nonedematous, no cyanosis was noted, no clubbing was noted. Neuro: Cranial nerves II through XII are grossly intact, no focal motor deficits were noted, sensation to light touch and pinprick is intact, motor exam 5/5 throughout. Psych: Patient is alert and oriented x3, she does not appear anxious or depressed, she does not appear agitated. Patient was discharged home stable condition on 01/20/2024 Weight / BMI Weight Weight: 93 kg Body Mass Index (BMI) 35.2 ABG / Lab / Microbiology Data 01/20/24 04:27 01/20/24 04:27 Laboratory: Laboratory Results - last 24 hr 01/19/24 16:34: POC Glucose 172 H 01/19/24 17:20: Troponin I High Sens 6 01/19/24 19:40: Troponin I High Sens 6 01/19/24 21:55: POC Glucose 218 H 01/19/24 23:10: Troponin I High Sens 5 01/20/24 04:27: WBC 4.6, RBC 3.91 L, Hgb 11.1 L, Hct 34.7 L, MCV 88.7, MCH 28.4, MCHC 32.0, RDW Std Deviation 51.2 H, RDW Coeff of Tomi 15.9 H, Plt Count 151, MPV 10.7, Immature Gran % (Auto) 0.200, Neut % (Auto) 49.0, Lymph % (Auto) 41.9 H, [place] % (Auto) 6.8, Eos % (Auto) 1.7, Baso % (Auto) 0.4, Absolute Neuts (auto) 2.2, Absolute Lymphs (auto) 1.92, Nucleated RBC % 0, Sodium 140, Potassium 3.9, Chloride 113 H, Carbon Dioxide 21.0, Anion Gap 6, BUN 16, Creatinine 0.85, Estim Creat Clear Calc 83.63, Est GFR (MDRD) Af Amer 90, Est GFR (MDRD) Non-Af 74, BUN/Creatinine Ratio 18.9, Glucose 334 H, Calcium 8.8, Phosphorus 3.0, Magnesium 2.0, Total Bilirubin 0.30, AST 11 L, ALT 15, Alkaline Phosphatase 87, Total Protein 6.1 L, Albumin 2.8 L, Globulin 3.3, Albumin/Globulin Ratio 0.8 L, Triglycerides 189, Cholesterol 129, LDL Cholesterol 46, VLDL Cholesterol 38, HDL Cholesterol 45 01/20/24 06:20: POC Glucose 261 H D/C Instructions Discharge Diet: 1800 Calorie Control Diet Weight Bearing Status: Full weight bearing Meaningful Use Info Meaningful Use Meaningful Use Diagnoses (Choose all that apply): None applicable Ischemic Stroke Statin Dosing Therapy Reference: STATIN DOSE THERAPY REFERENCE: * Patients > 75 years receive moderate or high dose statin therapy. * Patients 75 years or YOUNGER should receive HIGH intensity statin dose unless contraindicated. You will be required to document reason for non-treatment if statin daily dose does not meet guidelines. HIGH DOSE STATIN THERAPY DAILY Atorvastatin > than or = to 40 mg Rosuvastatin > than or = to 20 mg Amlodipine + Atorvastatin > than or = to 2.5/40 mg Ezetimibe + Simvastatin 10/80 mg Simvastatin 80mg Discharge Plan Admission Admit Date/Time: 01/19/24 14:21 Primary Reason for Your Visit: chest pain Attending Provider: Aidan Staples Primary Care Provider: Margo Tatum Consulting Providers: Estrellita Alarcon; Damaris Thibodeaux Instructions Forms: Work Excuse, Work / School Excuse Discharge Orders/Prescriptions Prescriptions: New ranolazine 500 mg tablet extended release 12 hr 500 mg PO BID Qty: 60 0RF Continued insulin glargine [Lantus Solostar U-100 Insulin] 100 unit/mL (3 mL) insulin pen 30 unit subcut DAILY Trulicity 1.5 mg/0.5 mL pen injector 1.5 mg subcut QWEEK Qty: 2 3RF dapagliflozin propanediol [Farxiga] 10 mg tablet 10 mg PO DAILY melatonin 10 mg capsule 10 mg PO HS PRN (Reason: insomnia) spironolactone 50 mg tablet 50 mg PO DAILY Entresto 97-103 mg tablet 1 tab PO BID Qty: 180 3RF Eliquis 5 mg tablet See Rx Instructions .ROUTE .COMPLEX Qty: 180 3RF Dose Instruction: take 1 tablet by mouth twice a day Patient Comments: since 08/25 Rx Instructions: take 1 tablet by mouth twice a day tizanidine 4 mg tablet 4 mg PO QHS Patient Comments: take 1 tablet by mouth every evening diphenhydramine HCl 25 mg Tablet 25 mg PO Q4H PRN PRN (Reason: Allergy Symptoms) promethazine 25 mg tablet 25 mg PO TID PRN PRN (Reason: Nausea And Vomiting) Patient Comments: take 1 tablet by mouth three times a day if needed for nausea and vomiting hydrocodone-acetaminophen 5-325 mg tablet 1 tab PO Q8H PRN (Reason: pain) omeprazole magnesium [Prilosec OTC] 20 mg tablet,delayed release (DR/EC) 20 mg PO DAILY Movantik 25 mg tablet 25 mg PO QAM PRN (Reason: pain) Rx Instructions: must be taken on empty stomach; no food 1 hr after or 2-3 hrs before dose insulin lispro [Humalog KwikPen Insulin] 100 unit/mL insulin pen 14 unit subcut TIDCM furosemide [Lasix] 20 mg tablet 20 mg PO DAILY 30 Days Qty: 30 2RF glipizide 10 mg tablet extended release 24hr 10 mg PO DAILY 30 Days Qty: 180 2RF (DME) pen needle, diabetic [BD Ultra-Fine [place] Pen Needle] 32 gauge x needle See Rx Instructions .Route Qty: 100 5RF Rx Instructions: 4x/day cholecalciferol (vitamin D3) 50 mcg (2,000 unit) capsule 1,000 unit PO DAILY clopidogrel [Plavix] 75 mg tablet 75 mg PO DAILY Qty: 90 3RF atorvastatin 80 mg tablet See Rx Instructions .ROUTE .COMPLEX Qty: 360 0RF Dose Instruction: take 1 tablet by mouth at bedtime Rx Instructions: take 1 tablet by mouth at bedtime isosorbide mononitrate 30 mg tablet extended release 24 hr See Rx Instructions .ROUTE .COMPLEX Qty: 360 0RF Dose Instruction: take 1 tablet by mouth once daily Rx Instructions: take 1 tablet by mouth once daily methimazole 10 mg tablet 10 mg PO DAILY Qty: 90 1RF (DME) Dexcom G7 Sensor Device See Rx Instructions .Route Qty: 3 3RF Rx Instructions: As directed (DME) Dexcom G7 Website Developer Misc See Rx Instructions .Route Qty: 1 0RF Rx Instructions: As directed carvedilol 25 mg tablet 25 mg PO BID Qty: 180 3RF Rx Instructions: must administer with a meal/food Referrals / Follow Up: Margo Tatum DO [Primary Care Provider] - Within 2 Weeks (To discuss control of Diabetes) Kirk Mitchell NP, FIRE EXTINGUISHER INSTALLER-C [Med Staff - Adv Practice Prof] - Within 1 Month Disposition Disposition (needs filled in before D/C Order can be placed): Home, Self Care Charges/Coding Visit Charges Inpatient E&M: 29147 Disch Hosp >30min
--- NOTE | 2024-01-20 13:42 | CASEMGMT ---
Patient has order for discharge. RN CM in to discuss needs at discharge. Patient denies needs or help at discharge. Patient had no further questions or concerns.
[2024-01-20 15:18] LABS: Bedside Glucose 224 mg/dL (74-106)
[2024-01-20] MEDS: Cholecalciferol (VIT D3) 25 MCG TABLET (1,000 UNITS) PO (15:19)
[2024-01-20] MEDS: Furosemide 20 MG Tablet PO (15:20)
[2024-01-20] MEDS: Empagliflozin 25 MG Tablet PO (15:20)
[2024-01-20] MEDS: Methimazole 5 MG Tablet 10 MG PO (15:20)
[2024-01-20] MEDS: Spironolactone 50 MG Tablet PO (15:20)
[2024-01-20] MEDS: Insulin Glargine-YFGN 100 UNIT/ML Pen 30 UNIT SC (15:31)
[2024-01-20] MEDS: Insulin Lispro 100 UNIT/ML INSULN.PEN 14 UNIT SC (15:34)
[2024-01-20] MEDS: Insulin Lispro 100 UNIT/ML INSULN.PEN SC (15:34)
--- NOTE | 2024-01-20 15:53 | CL.D_ITS ---
Patient Name: PITO CLARK Study Date: 01/20/2024 Performing: Monica Ly MD Ht: 64 inches 162.56 cm : 1970 Wt: 205.3 lbs 93 kg Age: 53 Gender: female BSA: 1.98 PROCEDURE(S) PERFORMED [id number] CLINICAL PROFILE AND INDICATIONS Heart Failure: None CAD Presentations: Unstable angina. CONCLUSIONS Mild nonobstructive CAD as described. Widely patent prior stent. No significant aortic stenosis. Normal LVEDP RECOMMENDATIONS DESCRIPTION OF PROCEDURE The patient arrived to the procedure lab. The risks and benefits of the procedure as well as a full description of our services here and current unavailability of surgical backup were fully explained to the patient and/or their significant other prior to the catheterization. The Timeout was completed, verifying the correct patient and procedure. The patient's procedural site was prepped and draped in the usual fashion. Local anesthetic was given subcutaneously to right radial region with Lidocaine 2%. Local anesthetic was given subcutaneously to right groin region with Lidocaine 2%. Local anesthetic was given subcutaneously to right groin region with Lidocaine 2%. Using a modified Seldinger technique, arterial access was obtained via the right femoral artery, a 5Fr sheath was inserted. Left Coronary Artery selective angiography was performed in multiple views using a 5 Fr. JL4 catheter. LV to AO pullback pressures were then recorded. Right Coronary Artery selective angiography was then performed in multiple views using a 5 Fr. JR 4 catheter.Contrast was injected through the sheath and the Right Iliac and Femoral artery were assessed for possible closure device.The arterial sheath was pulled and a Perclose closure device was deployed for hemostasis CORONARY ANGIOGRAPHY DOMINANCE: Right Dominant LEFT MAIN: Mild luminal irregularities LEFT ANTERIOR DESCENDING ARTERY: Mild luminal irregularities MID LAD: Previously placed stent is patent CIRCUMFLEX ARTERY: Mild luminal irregularities RIGHT CORONARY ARTERY: PROX RCA: 20 % Stenosis COMPLICATIONS No Complications PROCEDURE MEDICATIONS Versed 1 mg IV Fentanyl 50 mcg IV Fentanyl 25 mcg IV Versed 1 mg IV Oxygen: 2 L/min via nasal cannula Baby Aspirin (81mg) 1 Tabs PO @ 01/20/2024 11:13:52 SUMMARY OF HEMODYNAMIC DATA Time AIR REST ECG 11:13:31 AO 103/61 (80) SA 11:57:01 AO 107/59 (76) 11:57:11 LV 132/2, 9 11:59:55 LV 132/1, 9 12:00:04 LVp 138/2, 8 12:00:09 AOp 124/59 (79) 12:00:16 AO 104/50 (72) 12:01:36 Signed By Monica Ly MD On 01/20/2024 3:52:29 PM Monica Ly MD
== END 2024-01-20 13:01 | disposition home or self-care (01) ==
LOC: ED 13:42 → PCU 14:48
PROVIDERS: Admitting Provider Internal Medicine; Emergency Provider Emergency Medicine; PCP Family Medicine; Visit Provider Internal Medicine
DX: R07.89 Other chest pain (principal); I11.0 Hypertensive heart disease with heart failure; I50.22 Chronic systolic (congestive) heart failure; J44.9 Chronic obstructive pulmonary disease, unspecified; I48.0 Paroxysmal atrial fibrillation; I42.8 Other cardiomyopathies; Z79.4 Long term (current) use of insulin; E11.65 Type 2 diabetes mellitus with hyperglycemia; N17.9 Acute kidney failure, unspecified; Z79.01 Long term (current) use of anticoagulants; Z79.85 Long-term (current) use of injectable non-insulin antidiabetic drugs; Z95.810 Presence of automatic (implantable) cardiac defibrillator; Z79.02 Long term (current) use of antithrombotics/antiplatelets; Z95.5 Presence of coronary angioplasty implant and graft; Z68.35 Body mass index [BMI] 35.0-35.9, adult; Z87.891 Personal history of nicotine dependence; Z79.84 Long term (current) use of oral hypoglycemic drugs; I25.10 Atherosclerotic heart disease of native coronary artery without angina pectoris; E78.00 Pure hypercholesterolemia, unspecified; E66.9 Obesity, unspecified; E87.6 Hypokalemia; I25.2 Old myocardial infarction
CPT/HCPCS: 36415; 71045; 80048; 80053; 80061; 82962; 83735; 84100; 84484; 85025; 93005; 93306; 93454; 94668; 96360; 96361; 97802; 99152; 99153; 99221; 99285; C1894; J7030; J7040; J7120; Q9967; A4216; C1760; C1769; G0378

== ENCOUNTER → 2024-03-27 | Outpatient (CLI) | payer OTHER, SELFPAY ==
[2024-01-03 09:13] VITALS: BMI 35.5
--- NOTE | 2024-03-27 13:36 | RAD_ITS ---
STUDY: X-RAY - LUMBAR SPINE REASON FOR EXAM: Female, 53 years old. postlaminectomy syndrome, not elsewhere classified. TECHNIQUE: 2 view(s) of the lumbar spine were obtained. COMPARISON: 11/17/2021 FINDINGS: Normal lumbar lordosis. There is no substantial scoliosis. There is a normal alignment of the vertebrae. Normal vertebral bodies and endplates. Normal disc space heights. There is multilevel facet hypertrophy in the lower lumbar spine. The soft tissue structures are unremarkable. Dorsal column spinal signal in the lower thoracic spine. RAD/Lumbar Spine 2 or 3 Views IMPRESSION: Degenerative changes of the spine, as detailed above. MRI may be useful. Electronically Signed: Georges Vaughan MD at 10:33 EDT ,
[2024-03-27 15:07] LABS: Amphetamine Urine VISTA NEGATIVE (<1000 ng/mL); Barbiturate Urine VISTA NEGATIVE (< 200 ng/mL); Benzodiazepine Urine VISTA NEGATIVE (< 200 ng/mL); Cocaine Urine VISTA NEGATIVE (< 300 ng/mL); Ecstacy Urine VISTA NEGATIVE (< 500 ng/mL); Methadone Urine VISTA NEGATIVE (< 300 ng/mL); PCP Urine VISTA NEGATIVE (< 25 ng/mL); THC Urine VISTA NEGATIVE (< 50 ng/mL); Vista UDS pH Range 5
== END | disposition home or self-care (01) ==
LOC: LAB 13:21
PROVIDERS: PCP Family Medicine; Referring Provider Anesthesiology Pain Medicine; Visit Provider Anesthesiology Pain Medicine
DX: M96.1 Postlaminectomy syndrome, not elsewhere classified (principal); F11.20 Opioid dependence, uncomplicated
CPT/HCPCS: 72100; 80307

== ENCOUNTER 2024-05-30 18:15 | Emergency (ER) | payer OTHER, SELFPAY ==
[2024-01-03 09:13] VITALS: BMI 35.5
[2024-05-30 18:16] VITALS: BP 185/94; PULSE 85; RESP 26; TEMP 36; O2SAT 97; BMI 36.3
--- NOTE | 2024-05-30 18:40 | EKG12_ITS ---
Test Reason : SOB Blood Pressure : */* mmHG Vent. Rate : 80 BPM Atrial Rate : 80 BPM P-R Int : 156 ms QRS Dur : 146 ms QT Int : 462 ms P-R-T Axes : 58 61 0 degrees QTcB Int : 532 ms Atrial-sensed ventricular-paced rhythm Biventricular pacemaker detected Abnormal ECG Confirmed by JANAY GEE, JAMEL ([id number]), book editor JAYLIN FRANK ([id number]) on 06/01/2024 9:37:42 AM Referred By: CELINE Confirmed By: JAMEL GUSTAFSON MD
--- NOTE | 2024-05-30 18:41 | EX.ED.DYSGE1 ---
HPI History of Present Illness Chief Complaint: Shortness of Breath Informant: patient and spouse/S.O. Narrative Narrative: Increasing productive cough today. Feels like she needs to wheeze however is not. She is COPD no home oxygen. No fevers chills or myalgias. No sick contacts. History of ischemic cardiomyopathy. History of personal A-fib. She is on Eliquis. She is taking her medications. No chest pains. No leg swelling. Diabetes. Glucose monitor 350 currently. Denies nausea or vomiting. Prior similar symptoms: Yes PFSH PFSH Medical History Obesity Angina pectoris TRAE (acute kidney injury) Hypokalemia Hyperglycemia History of COPD History of CT (myocardial infarction) Cardiomyopathy, ischemic Type 2 diabetes mellitus Antiplatelet or antithrombotic long-term use Anticoagulant long-term use Presence of cardiac 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 therapy defibrillator ([employer]) Diabetes Atrial fibrillation Coronary artery disease Hypertension Paroxysmal atrial fibrillation Hyperthyroidism Vomiting Hirsutism Chronic nausea Non-ST elevation (NSTEMI) myocardial infarction Difficult intubation Syncope Thyroid nodule Kidney stones Former smoker COPD (chronic obstructive pulmonary disease) Irregular heart beat Myocardial infarct Seizures COVID-19 virus infection Atherosclerotic heart disease of [place] coronary artery without angina pectoris HFrEF (heart failure with reduced ejection fraction) Left bundle branch block (LBBB) Non-ischemic cardiomyopathy History of non-ST elevation myocardial infarction (NSTEMI) (09/08/21) Hyperglycemia due to type 2 diabetes mellitus Chronic low back pain Hyperlipidemia Benign hypertension Home Medications ?Medication ?Instructions ?Recorded ?Last Taken ?Type BD Ultra-Fine [place] Pen Needle 32 #100 ea 07/29/22 Unknown Rx gauge x 5/32 (pen needle, diabetic) diphenhydramine HCl 25 mg tablet 25 mg PO Q4H PRN PRN Allergy 08/06/22 Unknown History Symptoms hydrocodone-acetaminophen 5-325mg 1 tab PO Q8H PRN pain 08/06/22 01/18/24 History 5mg-325mg naloxegol 25 mg tablet (Movantik) 25 mg PO QAM PRN pain 08/06/22 Unknown History omeprazole magnesium 20 mg 20 mg PO DAILY reflux 08/06/22 01/19/24 History tablet,delayed release (Prilosec OTC) promethazine 25 mg tablet 25 mg PO TID PRN PRN Nausea And 08/06/22 Unknown History Vomiting tizanidine 4 mg tablet 4 mg PO QHS muscle spasms 08/06/22 01/18/24 History cholecalciferol (vitamin D3) 50 1,000 unit PO DAILY vitamin 03/08/23 01/19/24 History mcg (2,000 unit) capsule clopidogrel 75 mg tablet (Plavix) 75 mg PO DAILY anti platelet #90 05/16/23 01/19/24 Rx tabs atorvastatin 80 mg tablet See Rx Instructions .Route 06/09/23 Unknown Rx .COMPLEX cholesterol #360 TABLETS isosorbide mononitrate 30 mg See Rx Instructions .Route 06/09/23 01/19/24 Rx tablet,extended release 24 hr .COMPLEX heart #360 TABLETS furosemide 20 mg tablet (Lasix) 20 mg PO DAILY diuretic 30 days 09/10/23 01/19/24 Rx #30 tabs glipizide 10 mg tablet, extended 10 mg PO DAILY diabetes 30 days 09/10/23 01/19/24 Rx release 24 hr #180 tabs blood-glucose meter,continuous #1 ea 10/10/23 Unknown Rx (Dexcom G7 Top Distribution Executive) apixaban 5 mg tablet (Eliquis) See Rx Instructions .Route 12/13/23 Unknown Rx .COMPLEX blood thinner #180 tabs dapagliflozin propanediol 10 mg 10 mg PO DAILY diabetes 12/13/23 01/19/24 History tablet (Farxiga) melatonin 10 mg capsule 10 mg PO HS PRN insomnia 12/13/23 Unknown History sacubitril 97 mg-valsartan 103 mg 1 tab PO BID heart #180 tabs 12/13/23 01/19/24 Rx tablet (Entresto) carvedilol 25 mg tablet 25 mg PO BID blood pressure #180 12/29/23 Unknown Rx tabs ranolazine 500 mg tablet,extended 500 mg PO BID #60 tabs 01/20/24 Unknown Rx release,12 hr spironolactone 50 mg tablet 50 mg PO DAILY #90 TABLETS 03/20/24 Unknown Rx methimazole 10 mg tablet 10 mg PO DAILY thyroid #90 tabs 03/27/24 Unknown Rx Dexcom G7 Sensor (blood-glucose #3 ea 04/04/24 Unknown Rx sensor) dulaglutide 0.75 mg/0.5 mL 0.75 mg (0.5 mL) subcut QWEEK #2 mL 04/04/24 Unknown Rx subcutaneous pen injector (Trulicity) insulin glargine 100 unit/mL (3 40 unit (0.4 mL) subcut DAILY 04/04/24 Unknown Rx mL) subcutaneous pen (Lantus diabetes #36 mL Solostar U-100 Insulin) insulin lispro 100 unit/mL 25 unit (0.25 mL) subcut TIDCM 04/04/24 Unknown Rx subcutaneous pen (Humalog KwikPen diabetes #67.5 mL (U-100) Insulin) azithromycin 250 mg tablet 250 mg PO DAILY #4 TABLETS 05/30/24 Unknown Rx Allergy/AdvReac Type Severity Reaction Status Date / Time amoxicillin trihydrate (From AdvReac Vomiting Verified 05/30/24 18:15 Augmentin) potassium clavulanate (From AdvReac Vomiting Verified 05/30/24 18:15 Augmentin) Family History Father Myocardial infarction Cancer prostate, leukemia Agent orange exposure Diabetes Sister Diabetes COPD (chronic obstructive pulmonary disease) Mother CVA (cerebral vascular accident) Hypertension Surgical History History of bladder surgery (~09/2023) History of cholecystectomy History of appendectomy History of coronary artery stent placement (05/19/21) Status post insertion of nerve stimulator History of laparoscopy History of tonsillectomy History of cholecystectomy (1991) History of hysterectomy History of left heart catheterization (09/14/21) History of back surgery Social History household members: significant other Smoking Status: Former smoker how long ago did patient quit smoking: Quit 1990, smoke 2 ppd since teen until quit. alcohol intake: current alcohol intake frequency: holidays/special occasions only substance use type: does not use caffeine: Yes ROS ROS ED Constitutional Constitutional ED: Denies chills, fever(s) or sweats ENT ENT ED: Denies sore throat Cardiovascular Cardiovascular: Denies chest pain, leg edema, palpitations or racing heartbeat Respiratory/Chest Respiratory/Chest: Reports cough; Denies dyspnea or dyspnea on exertion Gastrointestinal Gastrointestinal: Denies abdominal pain, diarrhea, nausea or vomiting Genitourinary Genitourinary ED: Denies dysuria, hematuria or urinary frequency Musculoskeletal Musculoskeletal: Denies back pain, extremity pain or neck pain Integumentary Denies rash or wounds Neurologic Neurologic: Denies headache(s), paresthesias or weakness EXAM Physical Exam Const Vital Signs: 05/30/24 18:16 05/30/24 19:08 05/30/24 19:17 Temperature 96.8 F L 97.9 F Temperature Source Temporal Oral Pulse Rate 85 81 73 Respiratory Rate 26 H 18 18 Respiratory Pattern Normal Blood Pressure 185/94 H 147/72 H Blood Pressure Mean 124 97 Pulse Ox 97 98 Oxygen Delivery Method Room Air Room Air 05/30/24 20:42 Temperature 98 F Temperature Source Pulse Rate 83 Respiratory Rate 18 Respiratory Pattern Blood Pressure 140/81 H Blood Pressure Mean 100 Pulse Ox 99 Oxygen Delivery Method Positive well nourished and well developed Constitutional Narrative: Nontoxic General Appearance ED: well developed and NAD HEENT Reports moist mucous membranes normocephalic and atraumatic Eyes General Eye ED: Yes normal appearance of both eyes Neck full ROM Chest Wall Chest: Negative for tenderness Resp Resp Narrative: Diminished breath sounds bilaterally. No wheezing. Effort and Inspection: symmetric chest movement; Negative for respiratory distress Cardio regular rate, regular rhythm and no murmurs Peripheral Pulses: pulses 2+ throughout GI normal to inspection, nondistended, normoactive bowel sounds and non-tender Palpation: Negative for guarding or rebound tenderness present Extremity normal to inspection General Extremety ED: Negative for edema or tenderness General Extremity: Negative for edema Neuro oriented x3 and no sensory deficits noted Sensorium / Orientation: awake and alert Skin no rashes or lesions noted and no wounds MDM MDM MDM Narrative Medical decision making narrative: Interventions / MDM: Differential diagnosis: COPD history, bronchitis Diagnosis considered but do not suspect: Pneumonia however x-ray negative. My EKG interpretation: Atrial paced rhythm rate of 80, no ST changes, isolated T wave version leads III, PVC noted. Nonspecific findings. Imaging independently reviewed and interpreted by myself: 2 view chest x-ray: No acute process. External documents reviewed: N/A Test considered but not ordered:N/A ED course: Patient vital stable nontoxic. EKG per protocol paced rhythm. Cough with sputum today. No active wheezing. Her glucometer noted glucose of 350. History of elevated glucose. Will hold off on steroids. Aerosol treatments given. Chest x-ray ordered. Chest x-ray negative. After aerosol treatment improving symptoms. Will start antibiotics according to Gold criteria with her COPD. COVID, flu, RSV negative. She will continue aerosol treatments at home. Return precautions. All questions were answered. Re-evaluation: stable Disposition discussed with patient/family/significant other: Patient and significant other Case discussed with consulting clinician: N/A This note was generated with [employer] dictation software. It may contain incorrect words, spelling, and punctuation that were not noted in checking the note before signing. Radiography Diagnostic Testing: Clinical Impression(s) from Imaging Studies Chest X-Ray 05/30/24 18:55 IMPRESSION: No radiographic evidence of acute cardiopulmonary disease. Electronically Signed: Mark Alvarado MD at 19:25 EST , Discharge Plan Triage Chief Complaint: Shortness of Breath ED Provider: Miguel Solorio Dx/Rx/DC Orders Clinical Impression: COPD (chronic obstructive pulmonary disease), Bronchitis, Diabetes Instructions: ED Upper Resp Infec Abx Tx, ED COPD Flare Prescriptions: New azithromycin 250 mg tablet 250 mg PO DAILY Qty: 4 0RF No Action dapagliflozin propanediol [Farxiga] 10 mg tablet 10 mg PO DAILY melatonin 10 mg capsule 10 mg PO HS PRN (Reason: insomnia) Entresto 97-103 mg tablet 1 tab PO BID Qty: 180 3RF Eliquis 5 mg tablet See Rx Instructions .ROUTE .COMPLEX Qty: 180 3RF Dose Instruction: take 1 tablet by mouth twice a day Patient Comments: since 08/25 Rx Instructions: take 1 tablet by mouth twice a day Trulicity 0.75 mg/0.5 mL pen injector 0.75 mg subcut QWEEK Qty: 2 1RF insulin glargine [Lantus Solostar U-100 Insulin] 100 unit/mL (3 mL) insulin pen 40 unit subcut DAILY Qty: 36 1RF insulin lispro [Humalog KwikPen Insulin] 100 unit/mL insulin pen 25 unit subcut TIDCM Qty: 67.5 1RF (DME) Dexcom G7 Sensor Device See Rx Instructions .Route Qty: 3 5RF Rx Instructions: 1 sensor q 14 days tizanidine 4 mg tablet 4 mg PO QHS Patient Comments: take 1 tablet by mouth every evening diphenhydramine HCl 25 mg Tablet 25 mg PO Q4H PRN PRN (Reason: Allergy Symptoms) promethazine 25 mg tablet 25 mg PO TID PRN PRN (Reason: Nausea And Vomiting) Patient Comments: take 1 tablet by mouth three times a day if needed for nausea and vomiting hydrocodone-acetaminophen 5-325 mg tablet 1 tab PO Q8H PRN (Reason: pain) omeprazole magnesium [Prilosec OTC] 20 mg tablet,delayed release (DR/EC) 20 mg PO DAILY Movantik 25 mg tablet 25 mg PO QAM PRN (Reason: pain) Rx Instructions: must be taken on empty stomach; no food 1 hr after or 2-3 hrs before dose ranolazine 500 mg tablet extended release 12 hr 500 mg PO BID Qty: 60 0RF furosemide [Lasix] 20 mg tablet 20 mg PO DAILY 30 Days Qty: 30 2RF glipizide 10 mg tablet extended release 24hr 10 mg PO DAILY 30 Days Qty: 180 2RF (DME) pen needle, diabetic [BD Ultra-Fine [place] Pen Needle] 32 gauge x 5/32 needle See Rx Instructions .Route Qty: 100 5RF Rx Instructions: 4x/day cholecalciferol (vitamin D3) 50 mcg (2,000 unit) capsule 1,000 unit PO DAILY clopidogrel [Plavix] 75 mg tablet 75 mg PO DAILY Qty: 90 3RF atorvastatin 80 mg tablet See Rx Instructions .ROUTE .COMPLEX Qty: 360 0RF Dose Instruction: take 1 tablet by mouth at bedtime Rx Instructions: take 1 tablet by mouth at bedtime isosorbide mononitrate 30 mg tablet extended release 24 hr See Rx Instructions .ROUTE .COMPLEX Qty: 360 0RF Dose Instruction: take 1 tablet by mouth once daily Rx Instructions: take 1 tablet by mouth once daily (DME) Dexcom G7 Top Distribution Executive Misc See Rx Instructions .Route Qty: 1 0RF Rx Instructions: As directed carvedilol 25 mg tablet 25 mg PO BID Qty: 180 3RF Rx Instructions: must administer with a meal/food spironolactone 50 mg tablet 50 mg PO DAILY Qty: 90 3RF methimazole 10 mg tablet 10 mg PO DAILY Qty: 90 0RF Primary Care Provider: Margo Tatum Referrals: Margo Tatum DO [Primary Care Provider] - 1 Week Activity Restrictions/Additional Instructions: Chest x-ray negative. COVID, flu, RSV negative. With COPD history taking finish antibiotic prescribed to use inhaler as needed. Print Language: Croatian Disposition Disposition: Home, Self Care Discharge Date/Time: 05/30/24 20:43
--- NOTE | 2024-05-30 18:55 | RAD_ITS ---
INDICATION: cough EXAMINATION/TECHNIQUE: X-RAY - XR Chest 2 Views COMPARISON: 01/19/2024 FINDINGS: LINES/DEVICES: Stable transvenous pacemaker and thoracic stimulator leads. LUNGS: No consolidation, edema or effusion. No pneumothorax. MEDIASTINUM AND CARDIOVASCULAR STRUCTURES: Cardiac silhouette stable within normal limits. BONES AND SOFT TISSUES: Unremarkable. RAD/Chest PA and Lateral IMPRESSION: No radiographic evidence of acute cardiopulmonary disease. Electronically Signed: Mark Alvarado MD at 19:25 EST ,
[2024-05-30] MEDS: Ipratropium/Albuterol Sulfate 3 ML AMPUL.NEB INHALATION (19:07)
[2024-05-30 19:08] VITALS: PULSE 81; RESP 18
[2024-05-30 19:17] VITALS: BP 147/72; PULSE 73; RESP 18; TEMP 36.6; O2SAT 98
[2024-05-30] MEDS: Azithromycin 250 MG Tablet 500 MG PO (20:40)
[2024-05-30 20:42] VITALS: BP 140/81; PULSE 83; RESP 18; TEMP 36.6; O2SAT 99
== END 2024-05-30 20:43 | disposition home or self-care (01) ==
PROVIDERS: Emergency Provider Emergency Medicine; PCP Family Medicine; Visit Provider Emergency Medicine
DX: J44.9 Chronic obstructive pulmonary disease, unspecified (principal); I11.0 Hypertensive heart disease with heart failure; I50.22 Chronic systolic (congestive) heart failure; I48.0 Paroxysmal atrial fibrillation; E11.9 Type 2 diabetes mellitus without complications; Z79.4 Long term (current) use of insulin; J40 Bronchitis, not specified as acute or chronic; E78.5 Hyperlipidemia, unspecified; I25.10 Atherosclerotic heart disease of native coronary artery without angina pectoris; I25.2 Old myocardial infarction; Z95.5 Presence of coronary angioplasty implant and graft; Z79.01 Long term (current) use of anticoagulants; Z79.02 Long term (current) use of antithrombotics/antiplatelets; Z79.84 Long term (current) use of oral hypoglycemic drugs; Z79.85 Long-term (current) use of injectable non-insulin antidiabetic drugs; Z79.899 Other long term (current) drug therapy; Z86.16 Personal history of COVID-19; Z87.891 Personal history of nicotine dependence
CPT/HCPCS: 71046; 87631; 93005; 94640; 99282

== ENCOUNTER → 2024-07-05 | Outpatient (CLI) | payer OTHER, SELFPAY ==
[2024-01-03 09:13] VITALS: BMI 35.5
[2024-07-05 10:51] LABS: Free T3 3.6 pg/mL (2.18-3.98); T4 Free Direct 1.03 ng/dL (0.76-1.46); Thyroid Stim Hormone (TSH) 0.511 uIU/mL (0.358-3.740)
== END | disposition home or self-care (01) ==
LOC: LAB 09:41
PROVIDERS: PCP Family Medicine; Referring Provider Nurse Practitioner Family; Visit Provider Nurse Practitioner Family
DX: E05.90 Thyrotoxicosis, unspecified without thyrotoxic crisis or storm (principal)
CPT/HCPCS: 36415; 84439; 84443; 84481

== ENCOUNTER 2024-09-09 15:47 | Inpatient (IN) | payer OTHER, SELFPAY ==
[2024-01-03 09:13] VITALS: BMI 35.5
[2024-09-09] VITALS (13 sets, daily range): BP systolic 126–144; BP diastolic 67–101; PULSE 89–109; RESP 18–27; TEMP 36.6–36.7; O2SAT 95–100; BMI 36.5; BMI 35.2
--- NOTE | 2024-09-09 15:58 | EKG12_ITS ---
Test Reason : SOB Blood Pressure : */* mmHG Vent. Rate : 96 BPM Atrial Rate : 96 BPM P-R Int : 148 ms QRS Dur : 144 ms QT Int : 418 ms P-R-T Axes : 55 37 24 degrees QTcB Int : 528 ms Atrial-sensed ventricular-paced rhythm Biventricular pacemaker detected Abnormal ECG Confirmed by JANAY GEE, JAMEL ([id number]), editorial writer GUILLERMO LAROSE ([id number]) on 09/10/2024 9:14:14 AM Referred By: Carlos Saleem Confirmed By: JAMEL GUSTAFSON MD
--- NOTE | 2024-09-09 16:00 | EDS_ITS ---
HPI History of Present Illness Chief Complaint: Shortness of Breath Narrative Narrative: 53-year-old female past medical history of coronary artery disease, CHF, asthma and COPD presents with shortness of breath that began earlier today, in the morning. States yesterday everything was fine, she woke and went to work and was passing meds when she became very short of breath. She used her inhaler and last used her sister's nebulizer treatment an hour ago, but states she still feels very short of breath. She denies any recent long car trips or periods of immobilization, no weight gain, no leg swelling. No recent fevers or chills, no cough. She states she feels very short of breath. Her albuterol and nebulizer treatments are not effective in treating her shortness of breath. [facility] Medical History Obesity Angina pectoris TRAE (acute kidney injury) Hypokalemia Hyperglycemia History of COPD History of LA (myocardial infarction) Cardiomyopathy, ischemic Type 2 diabetes mellitus Antiplatelet or antithrombotic long-term use Anticoagulant long-term use Presence of cardiac 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 therapy defibrillator (ART EDUCATOR-D) Diabetes Atrial fibrillation Coronary artery disease Hypertension Paroxysmal atrial fibrillation Hyperthyroidism Vomiting Hirsutism Chronic nausea Non-ST elevation (NSTEMI) myocardial infarction Difficult intubation Syncope Thyroid nodule Kidney stones Former smoker COPD (chronic obstructive pulmonary disease) Irregular heart beat Myocardial infarct Seizures COVID-19 virus infection Atherosclerotic heart disease of [place] coronary artery without angina pectoris HFrEF (heart failure with reduced ejection fraction) Left bundle branch block (LBBB) Non-ischemic cardiomyopathy History of non-ST elevation myocardial infarction (NSTEMI) (09/08/21) Hyperglycemia due to type 2 diabetes mellitus Chronic low back pain Hyperlipidemia Benign hypertension Home Medications ?Medication ?Instructions ?Recorded ?Last Taken ?Type BD Ultra-Fine [place] Pen Needle 32 #100 ea 07/29/22 Unkn own Rx gauge x 5/32 (pen needle, diabetic) diphenhydramine HCl 25 mg tablet 25 mg PO Q4H PRN PRN Allergy 08/06/22 Unknown History Symptoms hydrocodone-acetaminophen 5-325mg 1 tab PO Q8H PRN ross n 08/06/22 01/18/24 History 5mg-325mg naloxegol 25 mg tablet (Movantik) 25 mg PO QAM PRN ross n 08/06/22 Unknown History omeprazole magnesium 20 mg 20 mg PO DAILY reflux 08/0601/19/24 History tablet,delayed release (Prilosec OTC) promethazine 25 mg tablet 25 mg PO TID PRN PRN Nausea And 08/06/22 Unknown History Vomiting tizanidine 4 mg tablet 4 mg PO QHS muscle spasms 01/18/24 History cholecalciferol (vitamin D3) 50 1,000 unit PO DAILY vi tamin 03/08/23 01/19/24 History mcg (2,000 unit) capsule clopidogrel 75 mg tablet (Plavix) 75 mg PO DAILY anti platelet #90 05/16/23 01/19/24 Rx tabs atorvastatin 80 mg tablet See Rx Instructions .Route 0 06/09/23 Unknown Rx .COMPLEX cholesterol #360 TABLETS isosorbide mononitrate 30 mg See Rx Instructions .Rout e 06/09/23 01/19/24 Rx tablet,extended release 24 hr .COMPLEX heart #360 TABL ETS furosemide 20 mg tablet (Lasix) 20 mg PO DAILY diureti c 30 days 09/10/23 01/19/24 Rx #30 tabs blood-glucose meter,continuous #1 ea 10/10/23 Unknown Rx (Dexcom G7 Pitting Machine Operator) apixaban 5 mg tablet (Eliquis) See Rx Instructions .Ro yumi 12/13/23 Unknown Rx .COMPLEX blood thinner #180 tabs dapagliflozin propanediol 10 mg 10 mg PO DAILY diabete s 12/13/23 01/19/24 History tablet (Farxiga) melatonin 10 mg capsule 10 mg PO HS PRN insomnia 02/27 Unknown History sacubitril 97 mg-valsartan 103 mg 1 tab PO BID heart # 180 tabs 12/13/23 01/19/24 Rx tablet (Entresto) carvedilol 25 mg tablet 25 mg PO BID blood pressure #180 12/29/23 Unknown Rx tabs spironolactone 50 mg tablet 50 mg PO DAILY #90 TABLETS 03/20/24 Unknown Rx Dexcom G7 Sensor (blood-glucose #3 ea 04/04/24 Unknown Rx sensor) insulin glargine 100 unit/mL (3 40 unit (0.4 mL) subcu t DAILY 04/04/24 Unknown Rx mL) subcutaneous pen (Lantus diabetes #36 mL Solostar U-100 Insulin) dulaglutide 1.5 mg/0.5 mL 1.5 mg (0.5 mL) subcut QWEEK #2 mL 06/13/24 Unknown Rx subcutaneous pen injector (Trulicity) glipizide 10 mg tablet 10 mg PO BID #180 tabs 06/13 Unknown Rx insulin aspart 20 unit subcut TID #15 mL Unknown Rx (niacinamide)(U-100) 100 unit/mL(3 mL) subcutaneous pen (Fiasp FlexTouch U-100 Insulin) insulin lispro 100 unit/mL 20 unit (0.2 mL) subcut TID #15 mL 06/14/24 Unknown Rx subcutaneous pen (Humalog KwikPen (U-100) Insulin) methimazole 10 mg tablet 10 mg PO DAILY thyroid #90 t abs 07/10/24 Unknown Rx Allergy/AdvReac Type Severity Reaction Status Date / Time amoxicillin trihydrate (From AdvReac Vomiting Verified 09/09/24 15:47 Augmentin) potassium clavulanate (From AdvReac Vomiting Verified 09/09/24 15:47 Augmentin) Family History Father Myocardial infarction Cancer prostate, leukemia Agent orange exposure Diabetes Sister Diabetes COPD (chronic obstructive pulmonary disease) Mother CVA (cerebral vascular accident) Hypertension Surgical History History of bladder surgery (~09/2023) History of cholecystectomy History of appendectomy History of coronary artery stent placement (05/19/21) Status post insertion of nerve stimulator History of laparoscopy History of tonsillectomy History of cholecystectomy (1991) History of hysterectomy History of left heart catheterization (09/14/21) History of back surgery Social History household members: significant other current occupational status: employed Smoking Status: Former smoker how long ago did patient quit smoking: Quit 1990, smoke 2 ppd since teen until quit. alcohol intake: current alcohol intake frequency: holidays/special occasions only substance use type: does not use caffeine: Yes ROS ROS ED ROS Narrative Constitutional: No fever, no chills. No weight gain. Cardiovascular: No chest pain. No palpitations. No pedal edema. Respiratory: No cough, positive shortness of breath. Abdominal: No abdominal pain. No nausea. No vomiting. Musculoskeletal: No myalgias. No arthralgias. Neurologic: No headaches. No dizziness. No lightheadedness. Psychiatric: No depression. No anxiety. EXAM Physical Exam Narrative Exam Narrative: Afebrile. Vital signs noted. Nontoxic-appearing. HEENT exam grossly unremarkable, PERRL, EOMI. Cardiovascular examination reveals mild tachycardia at 102 bpm. Lungs are clear to auscultation bilaterally, moving a good amount of air, positive tachypnea. Abdomen soft nontender. No pedal edema bilaterally. Neurological examination nonfocal and nonlateralizing. Const Vital Signs: 09/09/24 15:48 09/09/24 15:59 09/09/24 16:00 Temperature 98.1 F Temperature Source Oral Pulse Rate 102 H Respiratory Rate 24 H Respiratory Effort Short of Breath Labored Respiratory Pattern Tachypnea Blood Pressure 134/95 H Blood Pressure Mean 108 Pulse Ox 100 97 Oxygen Delivery Method Room Air Room Air Room Air Oxygen Flow Rate (L/min) 09/09/24 16:11 09/09/24 16:46 09/09/24 16:50 Temperature 98.1 F Temperature Source Oral Pulse Rate 97 96 97 Respiratory Rate 20 H 25 H 24 H Respiratory Effort Respiratory Pattern Tachypnea Blood Pressure 144/101 H 144/101 H Blood Pressure Mean 114 115 Pulse Ox 100 100 Oxygen Delivery Method Nasal Cannula Oxygen Flow Rate (L/min) 2 09/09/24 17:00 Temperature 98.1 F Temperature Source Oral Pulse Rate 99 Respiratory Rate 27 H Respiratory Effort Respiratory Pattern Blood Pressure 135/97 H Blood Pressure Mean 109 Pulse Ox 99 Oxygen Delivery Method Nasal Cannula Oxygen Flow Rate (L/min) 2 MDM MDM MDM Narrative Medical decision making narrative: Differential diagnosis includes but not limited to asthma exacerbation versus CHF versus pulmonary embolism. I have low suspicion for ACS. EKG was obtained and interpreted by myself independently as an atrial sensed ventricular paced rhythm at [address] changes. No STEMI. Initial laboratory work was obtained and reviewed and she has normal white count of 6.2 with hemoglobin 13.5, hematocrit 39.9, platelet count 180. Her D-dimer is slightly elevated at 1.06. When compared to prior labs, she has had a normal value in the past, but evidence of chronic elevation. Additionally, she is on Eliquis. I doubt she has a pulmonary embolism. However, on her chest x-ray it appears she has by basilar pneumonia and fluffy infiltrates with small pleural effusions. While I suspect more CHF, I will obtain a CTA to rule out the pulmonary embolism and take a closer look at her lungs to see if she has more fluid versus pneumonia. She has not really had an infectious symptomatology for clinical pneumonia as she has not had a fever or productive cough and she has no white count. Her BNP is elevated at 2124. She was administered Lasix 40 mg intravenously. Repeat examination at approximately 1640 does show mild improvement but she still has mild tachypnea. I reviewed her BMP and carbon dioxide low at 17.7 which I think may be secondary to hyperventilation, BUN of 18 creatinine 0.78. Glucose elevated at 198 but normal anion gap of 12. I reviewed the radiology report of the CTA and there is no evidence of a pulmonary embolism, no gross aortic dissection. She does have the bilateral infiltrates and small pleural effusions which once again I think is probably secondary more to a CHF. Given her tachypnea at rest and the need for oxygen for comfort, I discussed the patient with the hospitalist, Dr. Steele for admission to the PCU. Patient is in stable condition. History & Record Review Discussion w/independent historian: Patient Lab Data Attestation: I reviewed the patient's lab results. Labs: Laboratory Results - last 24 hr 09/09/24 16:07 WBC 6.2 RBC 4.44 Hgb 13.5 Hct 39.9 MCV 89.9 MCH 30.4 MCHC 33.8 RDW Std Deviation 42.7 RDW Coeff of Tomi 13.0 Plt Count 180 MPV 10.2 Immature Gran % (Auto) 0.200 Neut % (Auto) 69.4 Lymph % (Auto) 25.2 [place] % (Auto) 3.9 Eos % (Auto) 1.0 Baso % (Auto) 0.3 Absolute Neuts (auto) 4.3 Absolute Lymphs (auto) 1.55 Nucleated RBC % 0 D-Dimer Quant (PE/DVT) 1.06 H* Sodium 138 Potassium 4.0 Chloride 108 Carbon Dioxide 17.7 L Anion Gap 12 BUN 18 Creatinine 0.78 Estim Creat Clear Calc 92.93 Est GFR (MDRD) Non-Af 91 BUN/Creatinine Ratio 22.7 H Glucose 198 H Calcium 9.0 NT pro BNP II 2124 H Radiography Chest X-Ray - ED: 1 View, Read by ED Physician, Read by Radiologist, Right Infiltrate, Left Infiltrate, Right Effusion and Left Effusion Diagnostic Testing: Clinical Impression(s) from Imaging Studies Chest X-Ray 09/09/24 16:15 IMPRESSION: Suspect subtle pneumonia in the lower lobes. Reading Location: [facility] Chest CTA 09/09/24 16:42 IMPRESSION: NORMAL CHEST CTA. NO EVIDENCE OF ACUTE PULMONARY EMBOLISM. Patchy bilateral airspace opacities, concerning for infiltrates. Small bilateral pleural effusion with atelectasis. Ill-defined low attenuating lesion of the thyroid gland, please correlate with ultrasound. Reading [facility] Differential Diagnosis Chest pain/SOB: pulmonary embolism, ACS, pneumothorax, pneumonia, CHF and COPD Management Discussion w/another healthcare provider: Hospitalist Discharge Plan Dx/Rx/DC Orders Clinical Impression: Dyspnea, Pacemaker, Chronic anticoagulation, Elevated d-dimer, Congestive heart failure (CHF) Disposition Disposition: Acute Care Hospital [facility]
[2024-09-09] MEDS: MethylPREDNISolone 125 MG/2 ML Vial 60 MG IV (16:07)
[2024-09-09] MEDS: Ipratropium/Albuterol Sulfate 3 ML AMPUL.NEB INHALATION (16:10)
--- NOTE | 2024-09-09 16:15 | RAD_ITS ---
PROCEDURE: CHEST 1 VIEW (PORTABLE) 09/09/2024 REASON FOR EXAM: SHORTNESS OF BREATH TECHNIQUE: Frontal view of the chest. COMPARISON: None. FINDINGS: Hardware: Implanted cardiac device is present. Spinal nerve stimulator electrodes are seen in the lower thoracic spine Heart: Heart size is normal. Lungs: Hazy airspace opacities are seen in both lower lobes. Left hemidiaphragm is obscured and there is blunting of the left costophrenic angle and possibly the right costophrenic angle suggesting pleural effusions Bones: No aggressive bone lesions identified. Other: RAD/Chest 1 View (Portable) IMPRESSION: Suspect subtle pneumonia in the lower lobes. Reading Location: [facility]
[2024-09-09 16:20] LABS: Absolute Lymphocyte Count 1.55 X10^3/uL (0.83-4.51); Absolute Neutrophil Count 4.3 X10^3/uL (2.0-7.7); Basophil# 0.02 X10^3/uL; Basophil% 0.3 % (0-1); Eosinophil# 0.06 X10^3/uL; Hematocrit 39.9 % (37-47); Hemoglobin 13.5 g/dL (12.0-15.0); Lymphocyte # 1.55 X10^3/ul (0.83-4.51); Lymphocyte % 25.2 % (19-41); Mean Corp Hgb Conc 33.8 g/dL (32-36); Mean Corpuscular Hgb 30.4 pg (27.0-32.0); Mean Corpuscular Volume 89.9 fL (81-99); Mean Platelet Vol. 10.2 fl (6.2-12.0); Monocyte# 0.24 X10^3/uL; Monocyte% 3.9 % (0-10); NRBC Flagged by Analyzer 0 % (0-5); Neutrophil # 4.27 X10^3/uL (2.7-7.7); Neutrophil % 69.4 % (47-70); Platelet Count 180 K/mm3 (150-450); RBC Distribution Width SD 42.7 fl (35.1-43.9); Red Blood Count 4.44 M/mm3 (4.2-5.4); White Blood Count 6.2 K/mm3 (4.4-11.0)
[2024-09-09 16:37] LABS: D-Dimer Quantitative (DVT/PE) 1.06 FEU/ug/m (0.27-0.49)
[2024-09-09 16:38] LABS: Pro- Brain NATRIURETIC PEPTIDE 2124 pg/mL (<=900)
--- NOTE | 2024-09-09 16:42 | CT_ITS ---
PROCEDURE: CTA CHEST W/WO CONTRAST 09/09/2024 REASON FOR EXAM: ELEVATED D-DIMER TECHNIQUE: CTA axial imaging of the chest with intravenous contrast. Coronal and Sagittal reconstruction series were provided. 3D, 3D post processing, 3D reconstructions, Maximum intensity projection (MIPs) Volume rendering and Shaded surface rendering was provided. PATIENT PREPARATION: Per protocol CONTRAST: Isovue 370 VOLUME: 100 mL Not Provided Gauge IV One or more dose reduction techniques were used (e.g., Automated exposure control, adjustment of the mA and/or kV according to patient size, use of iterative reconstruction technique). RADIATION DOSE SUMMARY: CTDlvol: 21 mGy DLP: 388 mGycm . COMPARISON: None FINDINGS: Hardware: Pacemaker. Lymph nodes: No lymphadenopathy. Heart: Heart size is normal. No pericardial effusion. RV/LV Diameter Ratio: Thoracic Aorta: Contrast timing is designed to evaluate the pulmonary arteries. The thoracic aorta has a normal contour. Contrast opacification of the aorta is suboptimal for evaluation of the lumen. Pulmonary Vessels: No large central pulmonary emboli are identified. Contrast timing is suboptimal for evaluation of more distal branches. Most Proximal Level of Embolus (if embolus present): Lungs and Airways: Patchy bilateral airspace opacities, predominantly within the bilateral lower lobes with bilateral lower lobe interlobar septal thickening. Small bilateral pleural effusion with atelectasis Pleura: No pleural effusion. No pneumothorax. Upper Abdomen: Visualized portions of the upper abdominal viscera are unremarkable. Bones: Mild degenerative changes of the thoracic spine. Ill-defined low attenuating lesion of the thyroid gland, please correlate with ultrasound. CT/CTA Chest W/WO Contrast IMPRESSION: NORMAL CHEST CTA. NO EVIDENCE OF ACUTE PULMONARY EMBOLISM. Patchy bilateral airspace opacities, concerning for infiltrates. Small bilater al pleural effusion with atelectasis. Ill-defined low attenuating lesion of the thyroid gland, please correlate with ultrasound. Reading Location: [facility]
[2024-09-09 16:47] LABS: Anion Gap 12 (5-15); BUN 18 mg/dL (4-19); BUN/Creat Ratio 22.7 RATIO (10-20); Carbon Dioxide 17.7 mmol/L (21.0-32.0); Chloride 108 mmol/L (98-108); Creatinine, Serum 0.78 mg/dL (0.70-1.20); EST Glomerular Filtration Rate 91 (>60); Estimated Creatinine Clearance 92.93 ml/min (50-250); Glucose 198 mg/dL (70-99); Sodium Level 138 mmol/L (133-145)
[2024-09-09] MEDS: Morphine 2 MG/ML Syringe IV (16:57)
[2024-09-09] MEDS: Furosemide 40 MG/4 ML Vial IV (16:58)
[2024-09-09] MEDS: Ondansetron 4 MG/2 ML Vial IV (17:22)
--- NOTE | 2024-09-09 18:02 | PCM.HP.STD ---
HPI - General General Date of Admission: 09/09/24 Date of Service: 09/09/24 Chief Complaint: shortness of breath HPI Narrative PITO CLARK, is a 53 F with a PMH as outlined who presents via the ED on 09/09/2024 with a complaitn of shortness of breath which started today. She denied any fever, productive cough or wheezing. She denied any palpitations, dizziness, nausea, vomiting or any other symptoms. REview of systems was otherwise negative. Vitals in the ED were BP of 135/97, pulse rate of 99, respiratory rate of 27 and temp of 98.1 Fahrenheit. She was saturating 99% on 2 L of oxygen. CBC showed WBC of 6.2 and hemoglobin of 13.5 with platelets of 180. CHemistry was sodium of 138, potassium of 4, bicarb of 17.7 and anion gap of 12. Cr was 0.78. ProBNP was 2124. D dimer was 1.06. CHest xray showed suspect subtle pneumonia in the lower lobes and CT of the chest was negative for any evidence of PE and showed patchy bilateral airspace opacities concerning for infiltrates and small bilateral pleural effusion with atelecdtasis, as well as ill defined low attenuating lesion of hte thyroid gland. She is being admitted to be managed for hypoxia due to acute exacerbation of heart failure. [facility] Medical History Obesity Angina pectoris TRAE (acute kidney injury) Hypokalemia Hyperglycemia History of COPD History of AR (myocardial infarction) Cardiomyopathy, ischemic Type 2 diabetes mellitus Antiplatelet or antithrombotic long-term use Anticoagulant long-term use Presence of cardiac 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 therapy defibrillator (DYNAMITE RECLAIMER-D) Diabetes Atrial fibrillation Coronary artery disease Hypertension Paroxysmal atrial fibrillation Hyperthyroidism Vomiting Hirsutism Chronic nausea Non-ST elevation (NSTEMI) myocardial infarction Difficult intubation Syncope Thyroid nodule Kidney stones Former smoker COPD (chronic obstructive pulmonary disease) Irregular heart beat Myocardial infarct Seizures COVID-19 virus infection Atherosclerotic heart disease of [place] coronary artery without angina pectoris HFrEF (heart failure with reduced ejection fraction) Left bundle branch block (LBBB) Non-ischemic cardiomyopathy History of non-ST elevation myocardial infarction (NSTEMI) (09/08/21) Hyperglycemia due to type 2 diabetes mellitus Chronic low back pain Hyperlipidemia Benign hypertension Home Medications ?Medication ?Instructions ?Recorded ?Last Taken ?Type BD Ultra-Fine [place] Pen Needle 32 #100 ea 07/29/22 Unknown Rx gauge x 5/32 (pen needle, diabetic) diphenhydramine HCl 25 mg tablet 25 mg PO Q4H PRN PRN Allergy 08/06/22 Unknown History Symptoms hydrocodone-acetaminophen 5-325mg 1 tab PO Q8H PRN pain 08/06/22 01/18/24 History 5mg-325mg naloxegol 25 mg tablet (Movantik) 25 mg PO QAM PRN pain 08/06/22 Unknown History omeprazole magnesium 20 mg 20 mg PO DAILY reflux 08/06/22 01/19/24 History tablet,delayed release (Prilosec OTC) promethazine 25 mg tablet 25 mg PO TID PRN PRN Nausea And 08/06/22 Unknown History Vomiting tizanidine 4 mg tablet 4 mg PO QHS muscle spasms 08/06/22 01/18/24 History cholecalciferol (vitamin D3) 50 1,000 unit PO DAILY vitamin 03/08/23 01/19/24 History mcg (2,000 unit) capsule clopidogrel 75 mg tablet (Plavix) 75 mg PO DAILY anti platelet #90 05/16/23 01/19/24 Rx tabs atorvastatin 80 mg tablet See Rx Instructions .Route 06/09/23 Unknown Rx .COMPLEX cholesterol #360 TABLETS isosorbide mononitrate 30 mg See Rx Instructions .Route 06/09/23 01/19/24 Rx tablet,extended release 24 hr .COMPLEX heart #360 TABLETS furosemide 20 mg tablet (Lasix) 20 mg PO DAILY diuretic 30 days 09/10/23 01/19/24 Rx #30 tabs blood-glucose meter,continuous #1 ea 10/10/23 Unknown Rx (Dexcom G7 Financial Investment Adviser) apixaban 5 mg tablet (Eliquis) See Rx Instructions .Route 12/13/23 Unknown Rx .COMPLEX blood thinner #180 tabs dapagliflozin propanediol 10 mg 10 mg PO DAILY diabetes 12/13/23 01/19/24 History tablet (Farxiga) melatonin 10 mg capsule 10 mg PO HS PRN insomnia 12/13/23 Unknown History sacubitril 97 mg-valsartan 103 mg 1 tab PO BID heart #180 tabs 12/13/23 01/19/24 Rx tablet (Entresto) carvedilol 25 mg tablet 25 mg PO BID blood pressure #180 12/29/23 Unknown Rx tabs spironolactone 50 mg tablet 50 mg PO DAILY #90 TABLETS 03/20/24 Unknown Rx Dexcom G7 Sensor (blood-glucose #3 ea 04/04/24 Unknown Rx sensor) insulin glargine 100 unit/mL (3 40 unit (0.4 mL) subcut DAILY 04/04/24 Unknown Rx mL) subcutaneous pen (Lantus diabetes #36 mL Solostar U-100 Insulin) dulaglutide 1.5 mg/0.5 mL 1.5 mg (0.5 mL) subcut QWEEK #2 mL 06/13/24 Unknown Rx subcutaneous pen injector (Trulicity) glipizide 10 mg tablet 10 mg PO BID #180 tabs 06/13/24 Unknown Rx insulin aspart 20 unit subcut TID #15 mL 06/13/24 Unknown Rx (niacinamide)(U-100) 100 unit/mL(3 mL) subcutaneous pen (Fiasp FlexTouch U-100 Insulin) insulin lispro 100 unit/mL 20 unit (0.2 mL) subcut TID #15 mL 06/14/24 Unknown Rx subcutaneous pen (Humalog KwikPen (U-100) Insulin) methimazole 10 mg tablet 10 mg PO DAILY thyroid #90 tabs 07/10/24 Unknown Rx Allergy/AdvReac Type Severity Reaction Status Date / Time amoxicillin trihydrate (From AdvReac Vomiting Verified 09/09/24 15:47 Augmentin) potassium clavulanate (From AdvReac Vomiting Verified 09/09/24 15:47 Augmentin) Family History Father Myocardial infarction Cancer prostate, leukemia Agent orange exposure Diabetes Sister Diabetes COPD (chronic obstructive pulmonary disease) Mother CVA (cerebral vascular accident) Hypertension Surgical History History of bladder surgery (~09/2023) History of cholecystectomy History of appendectomy History of coronary artery stent placement (05/19/21) Status post insertion of nerve stimulator History of laparoscopy History of tonsillectomy History of cholecystectomy (1991) History of hysterectomy History of left heart catheterization (09/14/21) History of back surgery Social History household members: significant other current occupational status: employed Smoking Status: Former smoker how long ago did patient quit smoking: Quit 1990, smoke 2 ppd since teen until quit. alcohol intake: current alcohol intake frequency: holidays/special occasions only substance use type: does not use caffeine: Yes ROS Review of Systems ROS Unobtainable: Denies due to encephalopathy Constitutional Constitutional: Reports fatigue, malaise and weakness; Denies anorexia, chills or fever(s) Eyes Eyes: Denies change in vision ENT HEENT: Denies dysphagia, headache(s) or sore throat Cardiovascular Cardiovascular: Reports dyspnea on exertion; Denies chest pain, edema, lightheadedness or orthopnea Respiratory/Chest Respiratory/Chest: Reports dyspnea, shortness of breath at rest and shortness of breath with exertion; Denies cough, excessive phlegm production, hemoptysis, productive cough or wheezing Gastrointestinal Gastrointestinal: Denies abdominal pain, constipation, diarrhea, nausea or vomiting Genitourinary Genitourinary: Denies dysuria Neurologic Neurologic: Denies confusion, dizziness, focal weakness, headache(s), seizure-like activity, seizures, syncope or tremor(s) Psychiatric Psychiatric: Denies anxiety or depression Vital Signs Vital Signs Vital Signs: 09/09/24 15:48 09/09/24 15:59 09/09/24 16:00 Temperature 98.1 F Temperature Source Oral Pulse Rate 102 H Respiratory Rate 24 H Respiratory Effort Short of Breath Labored Respiratory Pattern Tachypnea Blood Pressure 134/95 H Blood Pressure Mean 108 Pulse Ox 100 97 Oxygen Delivery Method Room Air Room Air Room Air Oxygen Flow Rate (L/min) 09/09/24 16:11 09/09/24 16:46 09/09/24 16:50 Temperature 98.1 F Temperature Source Oral Pulse Rate 97 96 97 Respiratory Rate 20 H 25 H 24 H Respiratory Effort Respiratory Pattern Tachypnea Blood Pressure 144/101 H 144/101 H Blood Pressure Mean 114 115 Pulse Ox 100 100 Oxygen Delivery Method Nasal Cannula Oxygen Flow Rate (L/min) 2 09/09/24 17:00 Temperature 98.1 F Temperature Source Oral Pulse Rate 99 Respiratory Rate 27 H Respiratory Effort Respiratory Pattern Blood Pressure 135/97 H Blood Pressure Mean 109 Pulse Ox 99 Oxygen Delivery Method Nasal Cannula Oxygen Flow Rate (L/min) 2 Weight Weight: 212 lb 9.6 oz Body Mass Index (BMI) 36.5 Physical Exam Const alert, oriented x3, no apparent distress and average body habitus General Appearance: cooperative HEENT normocephalic, head/scalp atraumatic, moist oral mucous membranes and oropharynx normal Eyes PERRL, EOMs intact bilaterally and conjunctivae normal Neck no lymphadenopathy and supple Resp Resp Narrative: Mildly diminished breath sounds bibasilarly. BIlateral wheezing and Mild crackles. On 2 L of oxygen by nasal cannula. Tachypneic Cardio regular rhythm, S1 normal heart sound, S2 normal heart sound and no murmurs Cardio Narrative: tachycardic GI normal to inspection, nondistended, normoactive bowel sounds, soft to palpation and non-tender Extremity normal to inspection, full ROM and no clubbing, cyanosis or edema Neuro oriented x3, CN's II-XII intact bilaterally, moves all extremities and no focal motor deficits Sensorium / Orientation: awake Motor Exam: strength 5/5 throughout Psych affect normal Results Lab / Micro Data 09/09/24 16:07 09/09/24 16:07 Labs: Laboratory Results - last 24 hr 09/09/24 16:07: WBC 6.2, RBC 4.44, Hgb 13.5, Hct 39.9, MCV 89.9, MCH 30.4, MCHC 33.8, RDW Std Deviation 42.7, RDW Coeff of Tomi 13.0, Plt Count 180, MPV 10.2, Immature Gran % (Auto) 0.200, Neut % (Auto) 69.4, Lymph % (Auto) 25.2, [place] % (Auto) 3.9, Eos % (Auto) 1.0, Baso % (Auto) 0.3, Absolute Neuts (auto) 4.3, Absolute Lymphs (auto) 1.55, Nucleated RBC % 0, D-Dimer Quant (PE/DVT) 1.06 H*, Sodium 138, Potassium 4.0, Chloride 108, Carbon Dioxide 17.7 L, Anion Gap 12, BUN 18, Creatinine 0.78, Estim Creat Clear Calc 92.93, Est GFR (MDRD) Non-Af 91, BUN/Creatinine Ratio 22.7 H, Glucose 198 H, Calcium 9.0, NT pro BNP II 2124 H Imaging Radiology Impression Chest X-Ray 09/09/24 16:15 IMPRESSION: Suspect subtle pneumonia in the lower lobes. Reading Location: [facility] Chest CTA 09/09/24 16:42 IMPRESSION: NORMAL CHEST CTA. NO EVIDENCE OF ACUTE PULMONARY EMBOLISM. Patchy bilateral airspace opacities, concerning for infiltrates. Small bilateral pleural effusion with atelectasis. Ill-defined low attenuating lesion of the thyroid gland, please correlate with ultrasound. [facility] Assessment & Plan Assessment/Plan (1) Congestive heart failure (CHF): (2) Hypoxia: PLAN: Plan #Hypoxia due to acute exacerbation of heart failure and COPD exacaerbation Admit to PCU Admitted with a complaint of shortness of breath. D-dimer was elevated. CT of the chest was negative for PE but did show patchy bilateral airspace opacities concerning for infiltrate and small bilateral pleural effusions. She has not had a fever and does not have a productive cough so I think this is likely due to the heart failure as her BNP is elevated. Will diurese with IV Lasix 40 mg twice daily. Currently on 2 L of oxygen. Titrate oxygen to maintain saturation above 90%. Breathing treatments with bronchodilators. Order 2D echo. On carvedilol. Will continue. Also on Farxiga. On Entresto and spironolactone. Will continue these. will also place on IV solumedrol for COPD exacerbaiton Previous echo from February 2024 showed EF of 50 to 55% with no evidence of diastolic dysfunction no regional wall motion abnormalities noted with normal RV size and ICD with pacer leads noted within the right ventricle #Type 2 diabetes mellitus: On Farxiga and dulaglutide as well as Lantus 40 units daily. Insulin sliding scale. Accuhecks ACHS. Also on glipizide. #Benign essential hypertension: On carvedilol #CAD: On high intensity statin and Plavix as well as carvedilol and Imdur. #History of PE: On Eliquis #History of hypothyroidism: On methimazole #History of paroxysmal A-fib: On carvedilol and Eliquis #Hyperlipidemia: On statin #DVT prophylaxis: Already anticoagulated on Eliquis #CODE STATUS Patient counseled extensively about different types of CODE STATUS including full code, DNR CCA and DNR CCA. Patient elects to be full code. Total [id number] time 17 minutes. Charges/Coding Visit Charges Inpatient E&M: 37433 Init Hosp L3 Procedures Hospitalists Procedures: 11786 Advncd Care Plan 30 Min
[2024-09-09] MEDS: SACUBITRIL/VALSARTAN 97-103 MG TABLET 1 EACH PO (21:53)
[2024-09-09] MEDS: APIXABAN 2.5 MG TABLET (WCH) PO (21:53)
[2024-09-09] MEDS: Insulin Lispro 100 UNIT/ML INSULN.PEN SC (21:53)
[2024-09-09] MEDS: tiZANidine HCl 2 MG Tablet 4 MG PO (21:53)
[2024-09-09] MEDS: Atorvastatin Calcium 80 MG Tablet PO (21:53)
[2024-09-09] MEDS: HYDROcodone Bitartrate/Apap 5/325 Tablet PO (21:55)
[2024-09-09] MEDS: 0.9% Saline Lock 10 ML Syringe IV (21:57)
[2024-09-09] MEDS: Methylprednisolone Sod Succ 40 MG/ML VIAL IV (21:57)
[2024-09-10] VITALS (8 sets, daily range): BP systolic 106–135; BP diastolic 67–84; PULSE 77–96; RESP 16–22; TEMP 36.1–36.4; O2SAT 96–100; BMI 35.2
[2024-09-10 03:10] LABS: Bedside Glucose 282 mg/dL (74-106)
--- NOTE | 2024-09-10 06:22 | NURSING ---
blood sugar 292 on our device and 337 on patient's device
[2024-09-10] MEDS: glipiZIDE 10 MG Tablet PO (06:24)
[2024-09-10] MEDS: Insulin Lispro 100 UNIT/ML INSULN.PEN SC ×4 (06:24→23:11)
[2024-09-10] MEDS: Methylprednisolone Sod Succ 40 MG/ML VIAL IV ×3 (06:24→23:00)
[2024-09-10] MEDS: 0.9% Saline Lock 10 ML Syringe IV ×3 (06:25→23:13)
[2024-09-10 06:40] LABS: Absolute Neutrophil Count 7.6 X10^3/uL (2.0-7.7); Basophil# 0.01 X10^3/uL; Basophil% 0.1 % (0-1); Hematocrit 40.6 % (37-47); Hemoglobin 13.7 g/dL (12.0-15.0); Lymphocyte % 10.4 % (19-41); Mean Corp Hgb Conc 33.7 g/dL (32-36); Mean Corpuscular Hgb 30.1 pg (27.0-32.0); Mean Corpuscular Volume 89.2 fL (81-99); Mean Platelet Vol. 10.7 fl (6.2-12.0); Monocyte# 0.12 X10^3/uL; Monocyte% 1.4 % (0-10); NRBC Flagged by Analyzer 0 % (0-5); Neutrophil # 7.62 X10^3/uL (2.7-7.7); Neutrophil % 87.6 % (47-70); Platelet Count 196 K/mm3 (150-450); RBC Distribution Width SD 42.5 fl (35.1-43.9); Red Blood Count 4.55 M/mm3 (4.2-5.4); White Blood Count 8.7 K/mm3 (4.4-11.0)
[2024-09-10] MEDS: Ipratropium/Albuterol Sulfate 3 ML AMPUL.NEB INHALATION ×2 (06:53→19:14)
[2024-09-10 06:57] LABS: Bedside Glucose 292 mg/dL (74-106)
[2024-09-10 07:10] LABS: Anion Gap 16 (5-15); BUN 23 mg/dL (4-19); BUN/Creat Ratio 28.5 RATIO (10-20); Calcium,Total 9.1 mg/dL (7.6-11.0); Carbon Dioxide 17.8 mmol/L (21.0-32.0); Chloride 103 mmol/L (98-108); Creatinine, Serum 0.82 mg/dL (0.70-1.20); EST Glomerular Filtration Rate 85 (>60); Estimated Creatinine Clearance 86.74 ml/min (50-250); Glucose 315 mg/dL (70-99); Potassium 3.4 mmol/L (3.3-5.1); Sodium Level 137 mmol/L (133-145)
[2024-09-10 07:15] LABS: Hemoglobin A1c 9.4 % (<=5.6)
[2024-09-10] MEDS: Carvedilol 25 MG Tablet PO ×2 (09:01→17:45)
[2024-09-10] MEDS: Spironolactone 50 MG Tablet PO (09:01)
[2024-09-10] MEDS: Pantoprazole Sodium 20 MG Tablet PO (09:02)
[2024-09-10] MEDS: Clopidogrel Bisulfate 75 MG Tablet PO (09:02)
[2024-09-10] MEDS: Methimazole 5 MG Tablet 10 MG PO (09:02)
[2024-09-10] MEDS: Isosorbide Mononitrate 30 MG Tablet PO (09:02)
[2024-09-10] MEDS: APIXABAN 2.5 MG TABLET (WCH) PO ×2 (09:02→23:00)
[2024-09-10] MEDS: Furosemide 40 MG/4 ML Vial IV ×2 (09:02→17:45)
[2024-09-10] MEDS: Cholecalciferol (VIT D3) 25 MCG TABLET (1,000 UNITS) PO (09:02)
[2024-09-10] MEDS: SACUBITRIL/VALSARTAN 97-103 MG TABLET 1 EACH PO ×2 (09:02→22:59)
[2024-09-10] MEDS: Insulin Lispro 100 UNIT/ML INSULN.PEN 15 UNIT SC ×3 (09:03→16:23)
[2024-09-10] MEDS: Insulin Glargine-YFGN 100 UNIT/ML Pen 40 UNIT SC (09:03)
--- NOTE | 2024-09-10 09:37 | PCM.PN.HOSP ---
Reason for Visit Reason for Visit: Diagnoses Heart failure, unspecified (09/09/24) Hypoxemia (09/09/24) Subjective Subjective Saw patient at bedside this morning. Patient was mildly anxious appearing but otherwise sitting up comfortably in bedside chair, conversing normally, in no acute distress. She was breathing comfortably on 2 L nasal cannula at rest. Noted that her shortness of breath feels mild to moderately improved today from yesterday. Has had mild improvement with breathing treatments. Does not report significant urine output to this point. No other acute concerns at this time. Objective Data Objective Data Vital Signs: Vital Signs Temp Pulse Resp BP Pulse Ox O2 Del Method O2 Flow Rate 97.5 F L 89 22 H 135/84 H 100 Nasal Cannula 2 09/10/24 08:54 09/10/24 08:54 09/10/24 08:54 09/10/24 08:54 09/10/24 08:54 09/10/24 08:54 09/10/24 08:54 Oxygen Flow Rate (L/min) 2 Oxygen Delivery Method Nasal Cannula Weight: 93.1 kg Body Mass Index (BMI) 35.2 Intake & Output: Intake and Output for Last 24 Hours 09/08/24 09/09/24 09/10/24 23:59 23:59 23:59 Output Total 400 / 400 Balance -400 / -400 Lab / Micro Data 09/10/24 05:16 09/10/24 05:16 Labs: Laboratory Results - last 24 hr 09/09/24 16:07: WBC 6.2, RBC 4.44, Hgb 13.5, Hct 39.9, MCV 89.9, MCH 30.4, MCHC 33.8, RDW Std Deviation 42.7, RDW Coeff of Tomi 13.0, Plt Count 180, MPV 10.2, Immature Gran % (Auto) 0.200, Neut % (Auto) 69.4, Lymph % (Auto) 25.2, [place] % (Auto) 3.9, Eos % (Auto) 1.0, Baso % (Auto) 0.3, Absolute Neuts (auto) 4.3, Absolute Lymphs (auto) 1.55, Nucleated RBC % 0, D-Dimer Quant (PE/DVT) 1.06 H*, Sodium 138, Potassium 4.0, Chloride 108, Carbon Dioxide 17.7 L, Anion Gap 12, BUN 18, Creatinine 0.78, Estim Creat Clear Calc 92.93, Est GFR (MDRD) Non-Af 91, BUN/Creatinine Ratio 22.7 H, Glucose 198 H, Calcium 9.0, NT pro BNP II 2124 H 09/09/24 21:47: POC Glucose 282 H 09/10/24 05:16: WBC 8.7, RBC 4.55, Hgb 13.7, Hct 40.6, MCV 89.2, MCH 30.1, MCHC 33.7, RDW Std Deviation 42.5, RDW Coeff of Tomi 13.0, Plt Count 196, MPV 10.7, Immature Gran % (Auto) 0.500, Neut % (Auto) 87.6 H, Lymph % (Auto) 10.4 L, [place] % (Auto) 1.4, Eos % (Auto) 0.0, Baso % (Auto) 0.1, Absolute Neuts (auto) 7.6, Absolute Lymphs (auto) 0.90, Nucleated RBC % 0, Sodium 137, Potassium 3.4, Chloride 103, Carbon Dioxide 17.8 L, Anion Gap 16 H, BUN 23 H, Creatinine 0.82, Estim Creat Clear Calc 86.74, Est GFR (MDRD) Non-Af 85, BUN/Creatinine Ratio 28.5 H, Glucose 315 H, Hemoglobin A1c 9.4, Calcium 9.1 09/10/24 06:21: POC Glucose 292 H Radiography Diagnostic Testing: Radiology Impression Chest X-Ray 09/09/24 16:15 IMPRESSION: Suspect subtle pneumonia in the lower lobes. Reading Location: [facility] Chest CTA 09/09/24 16:42 IMPRESSION: NORMAL CHEST CTA. NO EVIDENCE OF ACUTE PULMONARY EMBOLISM. Patchy bilateral airspace opacities, concerning for infiltrates. Small bilateral pleural effusion with atelectasis. Ill-defined low attenuating lesion of the thyroid gland, please correlate with ultrasound. [facility] Physical Exam Const alert, oriented x3 and no apparent distress Constitutional Narrative: Middle-aged female, class II obesity, mildly anxious appearing but otherwise sitting up comfortably in bedside chair, conversing normally, in no acute distress. General Appearance: cooperative and comfortable HEENT normocephalic, head/scalp atraumatic, hearing grossly normal bilaterally, nasal mucous membranes and turbinates normal and moist oral mucous membranes Eyes PERRL, EOMs intact bilaterally and conjunctivae normal Neck full ROM Chest inspection of chest normal Resp normal respiratory effort and no use of accessory muscles Resp Narrative: Breathing comfortably on 2 L nasal cannula at rest. Good breath sounds bilaterally throughout with only mild crackles noted, no wheezing noted. Cardio regular rate, regular rhythm, no murmurs and peripheral pulses 2+ throughout GI normal to inspection, nondistended, normoactive bowel sounds, soft to palpation, non-tender and non-distended Back/Spine normal ROM Extremity normal to inspection, full ROM and no pedal edema Skin no rashes or lesions noted Psych mental status grossly normal Mood & Affect: anxious Assessment & Plan Assessment/Plan (1) Hypoxia: (2) Congestive heart failure (CHF): PLAN: Plan Patient is a 53-year-old female who presented to [facility] ED on 09/09/2024 with shortness of breath. 1. Acute hypoxia secondary to mild acute HFpEF and concern for COPD exacerbation ? Not on home oxygen. Presented with acute onset shortness of breath with hypoxia. Was afebrile, no leukocytosis and otherwise hemodynamically stable. CTA chest showed no PE, did show patchy bilateral airspace opacities concerning for infiltrates and small bilateral pleural effusions with atelectasis. BNP 2124. Last echo on 01/20/2024 showed EF 50 to 55%, no diastolic dysfunction, no valve abnormalities. Patient also had diagnostic cath done then that showed mild nonobstructive CAD with widely patent prior stent. COVID/flu/RSV and respiratory PCR panel pending. Will continue treatment with IV steroids, scheduled DuoNebs and IV Lasix 40 mg twice daily for today. Patient satting in the high 90s on 2 L nasal cannula, will plan to de-escalate to p.o. steroids and p.o. Lasix tomorrow in preparation for likely discharge home. 2. Type 2 diabetes mellitus ? Follows with endocrinology, last office visit in June. A1c 8.4% then, significantly improved from 12.4% in March. A1c 9.2% on this admit. Will continue home Lantus 40 units daily and treat with slightly reduced dose of Humalog 15 units with meals plus high?medium sliding scale insulin, adjust as needed. Holding home dapagliflozin, Trulicity and glipizide. Chronic medical conditions: ? Class II obesity: BMI 35 on admit. Complicated hospital course, care and prognosis. Encouraged weight loss. ? History of CAD with stenting, history of ischemic cardiomyopathy, hypertension, hyperlipidemia: Recent cardiac workup as noted above. Treated with IV Lasix as noted above. Continue home statin, Coreg, Plavix, Imdur, Entresto and spironolactone. ? Paroxysmal A-fib, history of LBBB s/p FACTORY EXPERT-D placement, history of VTE: Stable in normal sinus rhythm on admit. Continue home Coreg and Eliquis. ? Hyperthyroidism, history of thyroid nodules: Thyroid nodule noted on CTA chest on admit and had biopsy done recently with inconclusive pathology. Per endocrinology note, recommendation is that she follow-up with Dr. Hancock but she has not called to make an appointment yet. Continue home methimazole. Continue outpatient follow-up. ? GERD: Continue home PPI. DVT prophylaxis: Not indicated, on Eliquis CODE STATUS: Full code, verified Expected disposition: Home, 1 to 2 days Total clinical time spent by myself addressing the patient's medical issues, reviewing all the data, and collaborating with patient's care team: 35 minutes. Charges/Coding Visit Charges Inpatient E&M: 31106 Subs Hosp L2
--- NOTE | 2024-09-10 09:50 | CASEMGMT ---
RN CM Face to Face with patient for initial transition planning/care coordination assessment. RN CM introduced self and role at [facility]. Patient lying in bed, alert and oriented. Patient willing to participate in assessment and is able to answer all questions appropriately. Care providers, pharmacy, and demographics verified. Strata: 3 PCP: Rc Specialists: Vic, golf manager; Negro Pipelines Superintendent Preferred Pharmacy: [facility] Insurance: [employer] Prescription Benefit: yes Living Will/HPOA: yes, patient would like to update LNOK: sister, son Living Arrangements: Patient lives with sister in a single story duplex with 5 steps railing. Patient states she is independent Transportation: self sister DME/HHC: Patient has grab bars, pulse ox, glucometer with supplies at home. No previous HHC, patient has been to [facility] in the past. Patient wishes to discharge home, denies need for home health at this time. Patient states he has no further needs or concerns at this time. CM to follow for discharge planning needs that may arise. Disposition Plan: Patient to discharge home with family support and follow-up plans in place. Ofelia BURNETT, RN, CM
--- NOTE | 2024-09-10 10:45 | CASEMGMT ---
Social Work Pt completed LW/POA w/SW, pt put her significant other Nicola as Healthcare POA. SW gave pt originals and copies, and copies placed on chart. TAYLOR Ferguson
[2024-09-10 11:54] LABS: Bedside Glucose 291 mg/dL (74-106)
[2024-09-10] MEDS: HYDROcodone Bitartrate/Apap 5/325 Tablet PO (13:41)
--- NOTE | 2024-09-10 16:19 | CHAPLAIN ---
Type of Pastoral Visit _x__ Initial Visit ___ Follow-up Visit ___ On-call Visit ___ General Patient Visit ___ Spiritual Assessment ___ Family Conference ___ Bereavement ___ Rapid Response ___ Code Blue ___ Other (describe below) Pastoral Care Referral From _x__ Patient ___ Family ___ Nurse ___ Physician ___ Sack Filler ___ Warm In ___ Other (describe below) Sacrament/Intervention _x__ Active listening ___ Anointing ___ Lutheran ___ Bereavement ___ Communion ___ Jackelin exploration ___ ___ Life review _x__ Prayer ___ Reconciliation ___ Sacrament of Sick _x__ Supportive presence ___ Wedding ___ Other (describe below) Pastoral Comments patient is welcoming and presents self with a positive outlook; SO is also in the room and has brought gifts and yan with encouraging words spoken in the presence of this ui ux developer; pt says that mostly she just needs a prayer; pt allows SO to talk more and he is expressive about jackelin in God
[2024-09-10 16:45] LABS: Bedside Glucose 305 mg/dL (74-106)
[2024-09-10] MEDS: tiZANidine HCl 2 MG Tablet 4 MG PO (23:02)
[2024-09-10] MEDS: Atorvastatin Calcium 80 MG Tablet PO (23:02)
[2024-09-11] VITALS (7 sets, daily range): BP systolic 110–137; BP diastolic 59–84; PULSE 71–88; RESP 16–18; TEMP 35.9–36.4; O2SAT 94–99; BMI 36.4
[2024-09-11 00:09] LABS: Bedside Glucose 254 mg/dL (74-106)
[2024-09-11] MEDS: Ipratropium/Albuterol Sulfate 3 ML AMPUL.NEB INHALATION ×2 (07:23→12:50)
[2024-09-11 07:34] LABS: Hematocrit 39.8 % (37-47); Hemoglobin 13.5 g/dL (12.0-15.0); Mean Corp Hgb Conc 33.9 g/dL (32-36); Mean Corpuscular Hgb 30.3 pg (27.0-32.0); Mean Corpuscular Volume 89.4 fL (81-99); Mean Platelet Vol. 10.7 fl (6.2-12.0); Platelet Count 205 K/mm3 (150-450); RBC Distribution Width SD 42.7 fl (35.1-43.9); Red Blood Count 4.45 M/mm3 (4.2-5.4); White Blood Count 9.1 K/mm3 (4.4-11.0)
[2024-09-11 08:11] LABS: Anion Gap 13 (5-15); BUN 34 mg/dL (4-19); BUN/Creat Ratio 39.6 RATIO (10-20); Calcium,Total 8.9 mg/dL (7.6-11.0); Carbon Dioxide 19.3 mmol/L (21.0-32.0); Chloride 103 mmol/L (98-108); Creatinine, Serum 0.87 mg/dL (0.70-1.20); EST Glomerular Filtration Rate 80 (>60); Glucose 344 mg/dL (70-99); Potassium 4.3 mmol/L (3.3-5.1); Sodium Level 135 mmol/L (133-145)
[2024-09-11] MEDS: predniSONE 20 MG Tablet 40 MG PO (08:27)
[2024-09-11] MEDS: Carvedilol 25 MG Tablet PO (08:28)
[2024-09-11] MEDS: Insulin Lispro 100 UNIT/ML INSULN.PEN 15 UNIT SC (08:29)
[2024-09-11] MEDS: Insulin Lispro 100 UNIT/ML INSULN.PEN SC ×2 (08:29→12:42)
[2024-09-11] MEDS: Insulin Glargine-YFGN 100 UNIT/ML Pen 40 UNIT SC (08:31)
[2024-09-11 08:57] LABS: Bedside Glucose 343 mg/dL (74-106)
[2024-09-11] MEDS: Isosorbide Mononitrate 30 MG Tablet PO (10:50)
[2024-09-11] MEDS: Cholecalciferol (VIT D3) 25 MCG TABLET (1,000 UNITS) PO (10:50)
[2024-09-11] MEDS: SACUBITRIL/VALSARTAN 97-103 MG TABLET 1 EACH PO (10:50)
[2024-09-11] MEDS: Clopidogrel Bisulfate 75 MG Tablet PO (10:50)
[2024-09-11] MEDS: Pantoprazole Sodium 20 MG Tablet PO (10:50)
[2024-09-11] MEDS: Methimazole 5 MG Tablet 10 MG PO (10:51)
[2024-09-11] MEDS: Spironolactone 50 MG Tablet PO (10:51)
[2024-09-11] MEDS: APIXABAN 2.5 MG TABLET (WCH) PO (10:51)
[2024-09-11] MEDS: Furosemide 40 MG Tablet PO (10:51)
[2024-09-11 12:30] LABS: Bedside Glucose 455 mg/dL (74-106)
[2024-09-11] MEDS: Insulin Lispro 100 UNIT/ML INSULN.PEN 25 UNIT SC (12:40)
[2024-09-11 13:03] LABS: Glucose 513 mg/dL (70-99)
[2024-09-11] MEDS: 0.9% Normal Saline (1000mL) 1,000 ML 999 ML IV (14:05)
--- NOTE | 2024-09-11 16:01 | PCM.DC.SUM ---
Providers Date of Admission: 09/09/24 Date of Discharge: 09/11/24 Primary Care Physician: Dr. Margo Tatum DO Reason For Visit: COPD AND HEART FAILURE EXACERBATION Diagnosis Discharge Diagnosis (1) Hypoxia: Status: Acute Code(s): R09.02 - Hypoxemia (2) Congestive heart failure (CHF): Status: Acute Code(s): I50.9 - Heart failure, unspecified Medications at Discharge Home Medications BD Ultra-Fine [place] Pen Needle 32 gauge x /32 (pen needle, diabetic) #100 ea 07/29/22 diphenhydramine HCl 25 mg tablet 25 mg PO Q4H PRN PRN Allergy Symptoms 08/06/22 hydrocodone-acetaminophen 5-325mg 5mg-325mg 1 tab PO Q8H PRN pain 08/06/22 naloxegol 25 mg tablet (Movantik) 25 mg PO QAM PRN pain 08/06/22 omeprazole magnesium 20 mg tablet,delayed release (Prilosec OTC) 20 mg PO DAILY reflux 08/06/22 promethazine 25 mg tablet 25 mg PO TID PRN PRN Nausea And Vomiting 08/06/22 tizanidine 4 mg tablet 4 mg PO QHS muscle spasms 08/06/22 cholecalciferol (vitamin D3) 50 mcg (2,000 unit) capsule 1,000 unit PO DAILY vitamin 03/08/23 clopidogrel 75 mg tablet (Plavix) 75 mg PO DAILY anti platelet #90 tabs 05/16/23 atorvastatin 80 mg tablet See Rx Instructions .Route .COMPLEX cholesterol #360 TABLETS 06/09/23 isosorbide mononitrate 30 mg tablet,extended release 24 hr See Rx Instructions .Route .COMPLEX heart #360 TABLETS 06/09/23 blood-glucose meter,continuous (Dexcom G7 Energy Crop Farmer) #1 ea 10/10/23 apixaban 5 mg tablet (Eliquis) See Rx Instructions .Route .COMPLEX blood thinner #180 tabs 12/13/23 dapagliflozin propanediol 10 mg tablet (Farxiga) 10 mg PO DAILY diabetes 12/13/23 melatonin 10 mg capsule 10 mg PO HS PRN insomnia 12/13/23 sacubitril 97 mg-valsartan 103 mg tablet (Entresto) 1 tab PO BID heart #180 tabs 12/13/23 carvedilol 25 mg tablet 25 mg PO BID blood pressure #180 tabs 12/29/23 spironolactone 50 mg tablet 50 mg PO DAILY #90 TABLETS 03/20/24 Dexcom G7 Sensor (blood-glucose sensor) #3 ea 04/04/24 glipizide 10 mg tablet 10 mg PO BID #180 tabs 06/13/24 insulin aspart (niacinamide)(U-100) 100 unit/mL(3 mL) subcutaneous pen (Fiasp FlexTouch U-100 Insulin) 20 unit subcut TID #15 mL 06/13/24 methimazole 10 mg tablet 10 mg PO DAILY thyroid #90 tabs 07/10/24 dulaglutide 1.5 mg/0.5 mL subcutaneous pen injector (Trulicity) 1.5 mg subcut .tuesday09/09/24 furosemide 40 mg tablet 40 mg PO DAILY #30 tabs 09/11/24 insulin glargine-yfgn 100 unit/mL (3 mL) subcutaneous pen 50 unit (0.5 mL) subcut DAILY #0 mL 09/11/24 insulin lispro 100 unit/mL subcutaneous pen (Humalog KwikPen (U-100) Insulin) 25 unit (0.25 mL) subcut TIDAC #0 mL 09/11/24 prednisone 20 mg tablet 40 mg (2 x 20 mg) PO BREAKFAST #8 tabs 09/11/24 Hospital Course Procedures EKG and - (Chest x-ray/CTA chest wall) Summary of Care Provided Minutes Spent on Discharge: 40 Hospital Course: Ms. Quiros is a 53-year-old white female with a complicated past medical history presented to the emergency department at [facility] on 09/09/2024 with chief complaint of shortness of breath which started on the day of presentation. She had no fevers, productive cough or wheezing at the time of presentation and had no associated chest pain or lower extremity edema. Vital signs on presentation showed a temperature of 98.1, heart rate 102, respiratory was 24, she was tachypneic with some labored breathing, blood pressure was 134/95 and pulse ox was in the 100% on room air. CBC was unimpressive on presentation. A D-dimer was done and found to be elevated at 1.06. Chemistry was overtly unremarkable other than hyperglycemia with a blood glucose of 198. BNP was elevated at 2124. Chest x-ray showed subtle bilateral lower lobe consolidation. CTA of the chest showed patchy bilateral airspace disease with small effusions and/or atelectasis with a low attenuating lesion in the thyroid gland. Patient does have known history of Graves' disease and follows with endocrinology. COVID/flu/RSV PCR and respiratory viral panel PCR were all negative. On presentation was felt she had an acute exacerbation of heart failure with reduced ejection fraction as well as COPD. She was placed on IV diuretics, supplemental oxygen at 2 L and steroids along with pulmonary toilet. She had a recent echocardiogram and January 2024 that showed an EF of 50 to 55% without regional wall motion abnormalities or diastolic dysfunction. She does have a history of heart failure with reduced ejection fraction however has improved on goal-directed therapy. She also has an ICD. Hemoglobin A1c was obtained and found to be abnormally high at 9.4. We did make adjustments in her insulin regimen increasing her basal insulin from 40-50 and increasing her bolus insulin from 20-25. 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 Blood sugars were elevated due to steroid use. She will be sent home on a quick burst of steroids for the next 4 days and then these will discontinue. She was warned that her blood sugars may be a bit out of control while she is on steroids but then should resolve after steroid use is completed. With regards to her diuresis her respiratory status improved dramatically. On admission she was taking 20 mg of Lasix daily and we have increased her dose from 20 to 40 mg at the time of discharge. We also discussed with her the importance of watching her salt and fluid intake. Prior to discharge she was slightly lightheaded and had some mild hypotension. She was given 1 L of IV fluids back and responded well to this with normalization of her blood pressure. I suspect she was mildly over diuresed with her IV diuretics. She has previously followed with cardiology and I have asked her to follow-up with them within the next 2 to 4 weeks. She is to follow-up with endocrinology as previously recommended and her primary care physician within the next 2 weeks. I have asked that she obtain a BMP to assess her renal function and electrolytes within the next 5 to 7 days. She is to call her primary care physician for this order as we are not able to order at discharge. Amatory pulse ox was assessed prior to discharge and patient is not requiring supplemental oxygen at rest or with exertion. Patient was discharged home in stable condition on 09/11/2024. Discharge diagnoses: Acute hypoxia-resolved Acute on chronic heart failure with reduced ejection fraction-on goal-directed therapy Acute exacerbation of COPD-resolved Transient hypotension-resolved [id number] Paroxysmal atrial fibrillation Chronic LBBB History of VTE Hypothyroidism with history of thyroid nodules-->patient is following with endocrinology> and overall plan is to follow-up with Dr. Hancock from surgery GERD History of CAD History of ischemic cardiomyopathy Essential hypertension Hyperlipidemia Obesity Physical Exam Const alert, oriented x3, no apparent distress, no limitations and well nourished; Negative for average body habitus or healthy appearing Constitutional Narrative: Middle-aged, white female, sitting up in a chair at the bedside, appears comfortable, nontoxic, pleasant, currently on the phone but hangs up but on my arrival General Appearance: cooperative, comfortable, well kempt and well developed Exam Limitations: no limitations Nutritional Appearance: obese HEENT normocephalic, head/scalp atraumatic, hearing grossly normal bilaterally and moist oral mucous membranes HEENT Narrative: Mallampati 3, no thrush Eyes conjunctivae normal Eyes Narrative: No scleral icterus Neck supple Neck Narrative: Neck is short thick, trachea midline Resp normal respiratory effort, no retractions, no use of accessory muscles and clear to auscultation bilaterally Auscultation: Negative for rales, rhonchi or wheezes Cardio regular rate, regular rhythm, S1 normal heart sound, S2 normal heart sound, no murmurs, no rub, no gallops and no clicks GI normal to inspection, nondistended, normoactive bowel sounds, soft to palpation and non-tender GI Narrative: Protuberant abdomen Extremity no clubbing, cyanosis or edema Extremity Narrative: Pedal and radial pulses are 2+ Skin skin turgor normal and no jaundice Neuro oriented x3, moves all extremities and no focal motor deficits Speech: speech normal Psych affect normal Psych Narrative: Interacts appropriately Weight / BMI Weight Weight: 96.4 kg Body Mass Index (BMI) 36.4 ABG / Lab / Microbiology Data 09/11/24 06:36 09/11/24 12:25 Laboratory: Laboratory Results - last 24 hr 09/10/24 16:22: POC Glucose 305 H 09/10/24 23:09: POC Glucose 254 H 09/11/24 06:36: WBC 9.1, RBC 4.45, Hgb 13.5, Hct 39.8, MCV 89.4, MCH 30.3, MCHC 33.9, RDW Std Deviation 42.7, RDW Coeff of Tomi 13.0, Plt Count 205, MPV 10.7, Sodium 135, Potassium 4.3, Chloride 103, Carbon Dioxide 19.3 L, Anion Gap 13, BUN 34 H, Creatinine 0.87, Estim Creat Clear Calc 83.30, Est GFR (MDRD) Non-Af 80, BUN/Creatinine Ratio 39.6 H, Glucose 344 H, Calcium 8.9 09/11/24 08:21: POC Glucose 343 H 09/11/24 12:02: POC Glucose 455 H* 09/11/24 12:25: Glucose 513 H* Microbiology: Microbiology 09/10/24 11:42 Mucosa - Nose Respiratory Panel (PCR) - Final 09/10/24 11:22 Mucosa - Nasopharyngeal SARS-CoV-2, Influenza & RSV (PCR) - Final D/C Instructions Discharge Diet: Low fat / Low cholesterol (Limit sodium to 3 to 4 g daily/limit fluid to 2 L or less daily) and 1800 Calorie Control Diet Discharge Activity: Return to Normal Activity Return to work on: 09/14/24 DC O2, CPAP, BIPAP Needs Home O2 Discharge instructions: No Meaningful Use Info Meaningful Use Meaningful Use Diagnoses (Choose all that apply): None applicable Ischemic Stroke Statin Dosing Therapy Reference: STATIN DOSE THERAPY REFERENCE: * Patients > 75 years receive moderate or high dose statin therapy. * Patients 75 years or YOUNGER should receive HIGH intensity statin dose unless contraindicated. You will be required to document reason for non-treatment if statin daily dose does not meet guidelines. HIGH DOSE STATIN THERAPY DAILY Atorvastatin > than or = to 40 mg Rosuvastatin > than or = to 20 mg Amlodipine + Atorvastatin > than or = to 2.5/40 mg Ezetimibe + Simvastatin 10/80 mg Simvastatin 80mg Discharge Plan Admission Admit Date/Time: 09/09/24 20:17 Primary Reason for Your Visit: Shortness of breath Attending Provider: Damaris Thibodeaux Primary Care Provider: Margo Tatum Consulting Providers: Francine Steele; Jamie Manrique Instructions Forms: Work Excuse Additional Instructions / Restrictions: 1. Your hemoglobin A1c which is your 3-month blood sugar average was noted to be elevated on admission. At that time it was 9.4. We did increase your insulin to 50 units of basal insulin and 25 with meals. Will also continue your home medications. Please follow-up with endocrinology as previously recommended. -Your blood sugars will run high for a few days while you are on your steroid burst 2. We did increase your Lasix from 20 mg daily to 40 mg daily. Please continue this dose. You will need an outpatient basic metabolic profile to be done in the next 5 to 7 days to check your kidney function and your electrolytes. Please call your primary care physician and asked that this be done as we are not able to order this for you at discharge. 3. Please watch your sodium and fluid intake. Try to limit sodium to 3 to 4 g daily at most and limit your fluid intake to 2 L or less daily. Discharge Orders/Prescriptions Prescriptions: New furosemide 40 mg Tablet 40 mg PO DAILY Qty: 30 1RF insulin glargine-yfgn 100 unit/mL (3 mL) Insulin Pen 50 unit subcut DAILY Qty: 0 0RF insulin lispro [Humalog KwikPen Insulin] 100 unit/mL Insulin Pen 25 unit subcut TIDAC Qty: 0 0RF prednisone 20 mg Tablet 40 mg PO BREAKFAST Qty: 8 0RF Continued dapagliflozin propanediol [Farxiga] 10 mg tablet 10 mg PO DAILY melatonin 10 mg capsule 10 mg PO HS PRN (Reason: insomnia) sacubitril-valsartan [Entresto] 97-103 mg tablet 1 tab PO BID Qty: 180 3RF Eliquis 5 mg tablet See Rx Instructions .ROUTE .COMPLEX Qty: 180 3RF Dose Instruction: take 1 tablet by mouth twice a day Patient Comments: since 08/25 Rx Instructions: take 1 tablet by mouth twice a day (DME) Dexcom G7 Sensor Device See Rx Instructions .Route Qty: 3 5RF Rx Instructions: 1 sensor q 14 days glipizide 10 mg tablet 10 mg PO BID Qty: 180 1RF tizanidine 4 mg tablet 4 mg PO QHS Patient Comments: take 1 tablet by mouth every evening diphenhydramine HCl 25 mg Tablet 25 mg PO Q4H PRN PRN (Reason: Allergy Symptoms) promethazine 25 mg tablet 25 mg PO TID PRN PRN (Reason: Nausea And Vomiting) Patient Comments: take 1 tablet by mouth three times a day if needed for nausea and vomiting hydrocodone-acetaminophen 5-325 mg tablet 1 tab PO Q8H PRN (Reason: pain) omeprazole magnesium [Prilosec OTC] 20 mg tablet,delayed release (DR/EC) 20 mg PO DAILY Movantik 25 mg tablet 25 mg PO QAM PRN (Reason: pain) Rx Instructions: must be taken on empty stomach; no food 1 hr after or 2-3 hrs before dose Trulicity 1.5 mg/0.5 mL pen injector 1.5 mg subcut .tuesday (DME) pen needle, diabetic [BD Ultra-Fine Trinidad Pen Needle] 32 gauge x 5/ needle See Rx Instructions .Route Qty: 100 5RF Rx Instructions: 4x/day cholecalciferol (vitamin D3) 50 mcg (2,000 unit) capsule 1,000 unit PO DAILY clopidogrel [Plavix] 75 mg tablet 75 mg PO DAILY Qty: 90 3RF atorvastatin 80 mg tablet See Rx Instructions .ROUTE .COMPLEX Qty: 360 0RF Dose Instruction: take 1 tablet by mouth at bedtime Rx Instructions: take 1 tablet by mouth at bedtime isosorbide mononitrate 30 mg tablet extended release 24 hr See Rx Instructions .ROUTE .COMPLEX Qty: 360 0RF Dose Instruction: take 1 tablet by mouth once daily Rx Instructions: take 1 tablet by mouth once daily (DME) Dexcom G7 Energy Crop Farmer Misc See Rx Instructions .Route Qty: 1 0RF Rx Instructions: As directed carvedilol 25 mg tablet 25 mg PO BID Qty: 180 3RF Rx Instructions: must administer with a meal/food spironolactone 50 mg tablet 50 mg PO DAILY Qty: 90 3RF Fiasp FlexTouch U-100 Insulin 100 unit/mL (3 mL) insulin pen 20 unit subcut TID Qty: 15 5RF methimazole 10 mg tablet 10 mg PO DAILY Qty: 90 1RF Discontinued insulin glargine [Lantus Solostar U-100 Insulin] 100 unit/mL (3 mL) insulin pen 40 unit subcut DAILY Qty: 36 1RF furosemide [Lasix] 20 mg tablet 20 mg PO DAILY 30 Days Qty: 30 2RF insulin lispro [Humalog KwikPen Insulin] 100 unit/mL insulin pen 20 unit subcut TID Qty: 15 2RF Referrals / Follow Up: Malys,Margo, DO [Primary Care Provider] - Within 2 Weeks (Please call for a basic metabolic profile to be done within the next 5 to 7 days in addition to their follow-up appointment) Kirk Mitchell [employer]PERINTENDENT [employer], [employer] [Med Staff - Adv Practice Prof] - Within 1 Month (Please call and get an appointment to be seen by cardiology within the next 2 to 4 weeks) Disposition Disposition (needs filled in before D/C Order can be placed): Home, Self Care Charges/Coding Visit Charges Inpatient E&M: 28498 Disch Hosp >30min
--- NOTE | 2024-09-11 16:20 | CASEMGMT ---
Patient has order for discharge. RN CM in to discuss needs at discharge. Patient denies needs or help at discharge. Patient had no further questions or concerns.
== END 2024-09-11 17:35 | disposition home or self-care (01) | DRG 291 ==
LOC: ED 16:46 → PCU 21:41
PROVIDERS: Hospitalist; Admitting Provider Student in an Organized Health Care Education/Training Program; Emergency Provider Emergency Medicine; PCP Family Medicine; Referring Provider Emergency Medicine; Visit Provider Internal Medicine
DX: I11.0 Hypertensive heart disease with heart failure (principal); I50.21 Acute systolic (congestive) heart failure; J44.1 Chronic obstructive pulmonary disease with (acute) exacerbation; Z79.01 Long term (current) use of anticoagulants; E11.65 Type 2 diabetes mellitus with hyperglycemia; E05.00 Thyrotoxicosis with diffuse goiter without thyrotoxic crisis or storm; E03.9 Hypothyroidism, unspecified; Z68.36 Body mass index [BMI] 36.0-36.9, adult; I48.0 Paroxysmal atrial fibrillation; I42.8 Other cardiomyopathies; Z79.4 Long term (current) use of insulin; I25.119 Atherosclerotic heart disease of native coronary artery with unspecified angina pectoris; E78.5 Hyperlipidemia, unspecified; I44.7 Left bundle-branch block, unspecified; I25.2 Old myocardial infarction; M54.9 Dorsalgia, unspecified; E05.20 Thyrotoxicosis with toxic multinodular goiter without thyrotoxic crisis or storm; Z79.85 Long-term (current) use of injectable non-insulin antidiabetic drugs; Z79.02 Long term (current) use of antithrombotics/antiplatelets; Z90.710 Acquired absence of both cervix and uterus; Z95.0 Presence of cardiac pacemaker; Z79.84 Long term (current) use of oral hypoglycemic drugs; Z82.5 Family history of asthma and other chronic lower respiratory diseases; Z86.16 Personal history of COVID-19; R09.02 Hypoxemia; Z95.5 Presence of coronary angioplasty implant and graft; E66.812 Obesity, class 2; Z87.891 Personal history of nicotine dependence; R06.89 Other abnormalities of breathing; G89.29 Other chronic pain; Z79.52 Long term (current) use of systemic steroids; Z86.711 Personal history of pulmonary embolism
CPT/HCPCS: 36415; 71045; 71275; 80048; 82947; 82962; 83036; 83880; 85025; 85027; 85379; 87631; 87633; 93005; 94640; 97161; 99285; Q9967; A4216; J1940; J2405

== ENCOUNTER → 2024-09-24 | Outpatient (CLI) | payer OTHER, SELFPAY ==
[2024-01-03 09:13] VITALS: BMI 35.5
--- NOTE | 2024-09-24 12:40 | US_ITS ---
PROCEDURE: THYROID 09/24/2024 REASON FOR EXAM: THYROID NODULE TECHNIQUE: Thyroid ultrasound COMPARISON: Comparison is made with prior study dated January 05, 2024. FINDINGS: Right thyroid lobe measures 5.9 cm x 1.9 cm x 1.6 cm. Left thyroid lobe measures 6.2 cm x 1.8 cm x 1.8 cm. Isthmus thickness is5.8 mm. Thyroid Size: Diffusely enlarged Background Echotexture: Heterogeneous Thyroid Nodules: Stable 2.1 cm x 1.5 cm 1.1 cm complex solid and cystic nodule with increased vascularity in the right lobe. Stable dominant 2.5 cm x 1.9 cm x 1.8 cm complex nodule in the midportion of the left lobe with increased vascularity. Stable 1.2 cm x 0.7 cm x 0.7 cm solid nodule in the upper pole of the left lobe with vascularity. There has been essentially no change. Other: US/Thyroid IMPRESSION: OVERALL FINAL ASSESSMENT: TI-RADS 3: Probably benign nodules (<5% risk). Enlarged thyroid gland with heterogeneous echotexture. Stable bilateral thyroid nodules. Reading Location: [place] [id number]
== END | disposition home or self-care (01) ==
PROVIDERS: PCP Family Medicine; Referring Provider Nurse Practitioner Family; Visit Provider Nurse Practitioner Family
DX: E04.2 Nontoxic multinodular goiter (principal)
CPT/HCPCS: 76536

== ENCOUNTER → 2024-09-25 | Outpatient (CLI) | payer OTHER, SELFPAY ==
[2024-01-03 09:13] VITALS: BMI 35.5
[2024-09-25 14:41] LABS: Amphetamine Urine NEGATIVE (<1000 ng/mL); Barbiturate Urine NEGATIVE (< 200 ng/mL); Benzodiazepine Urine NEGATIVE (< 200 ng/mL); Buprenorphine Urine NEGATIVE (< 200 ng/mL); Cocaine Urine NEGATIVE (< 300 ng/mL); Fentanyl, Urine NEGATIVE; Methadone Urine NEGATIVE (< 300 ng/mL); Opiates Urine PRESUMPTIVE POSITIVE (< 300 ng/mL); Oxycodone, Urine NEGATIVE (< 100 ng/mL); PCP Urine NEGATIVE (< 25 ng/mL); THC Urine NEGATIVE (< 50 ng/mL)
== END | disposition home or self-care (01) ==
LOC: LAB 12:43
PROVIDERS: PCP Family Medicine; Referring Provider Anesthesiology Pain Medicine; Visit Provider Anesthesiology Pain Medicine
DX: F11.20 Opioid dependence, uncomplicated (principal)
CPT/HCPCS: 80307

== ENCOUNTER 2024-10-15 10:31 | Emergency (ER) | payer OTHER, SELFPAY ==
[2024-01-03 09:13] VITALS: BMI 35.5
[2024-10-15 10:31] VITALS: BP 139/90; PULSE 87; RESP 18; TEMP 36.1; O2SAT 98; BMI 35.9
--- NOTE | 2024-10-15 10:41 | EKG12_ITS ---
Test Reason : CHEST PAIN Blood Pressure : */* mmHG Vent. Rate : 83 BPM Atrial Rate : 83 BPM P-R Int : 154 ms QRS Dur : 154 ms QT Int : 454 ms P-R-T Axes : 35 41 19 degrees QTcB Int : 533 ms Atrial-sensed ventricular-paced rhythm Biventricular pacemaker detected Abnormal ECG Confirmed by Edward Hinkle ([id number]), editorial clerk JAYLIN FRANK ([id number]) on 10/16/2024 9:17:04 AM Referred By: DONNIE Confirmed By: Edward Hinkle
--- NOTE | 2024-10-15 10:55 | RAD_ITS ---
PROCEDURE: CHEST 1 VIEW (PORTABLE) 10/15/2024 REASON FOR EXAM: CHEST PAIN TECHNIQUE: Frontal view of the chest. COMPARISON: Comparison is made with prior study dated September 09, 2024. FINDINGS: Hardware: EKG electrodes are seen. A left-sided dual-chamber pacemaker device is visualized. Heart: Heart size is mildly enlarged. Lungs: The lungs are clear. Bones: Degenerative changes are identified within the thoracic spine. Other: RAD/Chest 1 View (Portable) IMPRESSION: Mild cardiomegaly. The lungs are clear. Reading Location: [id number]
[2024-10-15 11:00] LABS: Absolute Neutrophil Count 4.2 X10^3/uL (2.0-7.7); Basophil# 0.02 X10^3/uL; Basophil% 0.3 % (0-1); Eosinophil# 0.04 X10^3/uL; Eosinophils% 0.6 % (0-5); Hematocrit 37.8 % (37-47); Hemoglobin 12.7 g/dL (12.0-15.0); Lymphocyte % 26.7 % (19-41); Mean Corp Hgb Conc 33.6 g/dL (32-36); Mean Corpuscular Hgb 31.2 pg (27.0-32.0); Mean Corpuscular Volume 92.9 fL (81-99); Monocyte# 0.42 X10^3/uL; Monocyte% 6.6 % (0-10); NRBC Flagged by Analyzer 0 % (0-5); Neutrophil # 4.17 X10^3/uL (2.7-7.7); Neutrophil % 65.5 % (47-70); Platelet Count 175 K/mm3 (150-450); RBC Distribution Width CV 15.1 % (11.6-14.6); RBC Distribution Width SD 51.8 fl (35.1-43.9); Red Blood Count 4.07 M/mm3 (4.2-5.4); White Blood Count 6.4 K/mm3 (4.4-11.0)
[2024-10-15 11:24] LABS: Anion Gap 10 (5-15); BUN 24 mg/dL (4-19); BUN/Creat Ratio 17.9 RATIO (10-20); Calcium,Total 9.3 mg/dL (7.6-11.0); Chloride 106 mmol/L (98-108); Creatinine, Serum 1.35 mg/dL (0.70-1.20); EST Glomerular Filtration Rate 47 (>60); Glucose 203 mg/dL (70-99); Potassium 4.1 mmol/L (3.3-5.1); Sodium Level 138 mmol/L (133-145); Troponin T High Sensitivity 10 ng/L (<=14)
--- NOTE | 2024-10-15 12:04 | EDS_ITS ---
HPI History of Present Illness Chief Complaint: Chest Pain Informant: patient Onset/Context/Timing Onset: Today Activity at onset: sudden Timing: Intermittent Quality: Positive for Sharp and - (Squeezing) Location: Left Chest Worsened By: Nothing Relieved By: Nothing Associated Symptoms: Positive for Diaphoresis and Lightheadedness; Negative for Nausea, Vomiting, Dyspnea, Cough, Fever, Acid Reflux or Palpitations Narrative Narrative: Patient presents with chest pain that has been intermittent today. Patient states it began suddenly. Patient describes it as sharp and squeezing. Patient states it is over the left side of her chest. Patient states nothing makes it worse and nothing makes it better. Patient states she felt her heart skipping beats. Patient denies any shortness of breath or cough. Patient admits to some diaphoresis. Patient also admits to some lightheadedness. Patient denies any nausea or vomiting. CVD Risk Factors: Positive for Diabetes and Family History 1' </=55; Negative for Hypertension, Hypercholesterolemia or Smoking PE Risk Factors: Negative for Recent Travel/Surgery, Recent Immobilization, Prior DVT or PE, Cancer or OCP + Smoking + >/=35 PFSH PFSH Medical History Chronic anticoagulation Pacemaker Hypothyroidism Chronic pain Asthma ICD (implantable cardioverter-defibrillator) in place Angina pectoris TRAE (acute kidney injury) Hypokalemia Hyperglycemia History of COPD History of IN (myocardial infarction) Antiplatelet or antithrombotic long-term use Anticoagulant long-term use Presence of cardiac 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 therapy defibrillator ([employer]) Diabetes Atrial fibrillation Coronary artery disease Hypertension Paroxysmal atrial fibrillation Hyperthyroidism Vomiting Hirsutism Chronic nausea Non-ST elevation (NSTEMI) myocardial infarction Difficult intubation Syncope Thyroid nodule Kidney stones Former smoker COPD (chronic obstructive pulmonary disease) Irregular heart beat Myocardial infarct Seizures COVID-19 virus infection Cardiomyopathy, ischemic Atherosclerotic heart disease of [place] coronary artery without angina pectoris HFrEF (heart failure with reduced ejection fraction) Obesity Left bundle branch block (LBBB) Non-ischemic cardiomyopathy History of non-ST elevation myocardial infarction (NSTEMI) (09/08/21) Hyperglycemia due to type 2 diabetes mellitus Chronic low back pain Type 2 diabetes mellitus Hyperlipidemia Benign hypertension Home Medications ?Medication ?Instructions ?Recorded ?Last Taken ?Type BD Ultra-Fine [place] Pen Needle 32 #100 ea 07/29/22 Unkn own Rx gauge x (pen needle, diabetic) diphenhydramine HCl 25 mg tablet 25 mg PO Q4H PRN Juaquin rgy Symptoms 08/06/22 10/14/24 History hydrocodone-acetaminophen 5-325mg 1 tab PO Q8H PRN ross n 08/06/22 10/14/24 History 5mg-325mg naloxegol 25 mg tablet (Movantik) 25 mg PO QAM PRN ross n 08/06/22 Unknown History omeprazole magnesium 20 mg 20 mg PO DAILY reflux 08/0610/15/24 History tablet,delayed release (Prilosec OTC) promethazine 25 mg tablet 25 mg PO TID PRN Nausea And 08/06/22 Unknown History Vomiting tizanidine 4 mg tablet 4 mg PO QHS muscle spasms 10/14/24 History cholecalciferol (vitamin D3) 50 1,000 unit PO DAILY vi tamin 03/08/23 01/19/24 History mcg (2,000 unit) capsule clopidogrel 75 mg tablet (Plavix) 75 mg PO DAILY anti platelet #90 05/16/23 10/15/24 Rx tabs atorvastatin 80 mg tablet See Rx Instructions .Route 0 06/09/23 10/14/24 Rx .COMPLEX cholesterol #360 TABLETS isosorbide mononitrate 30 mg See Rx Instructions .Rout e 06/09/23 10/15/24 Rx tablet,extended release 24 hr .COMPLEX heart #360 TABL ETS blood-glucose meter,continuous #1 ea 10/10/23 Unknown Rx (Dexcom G7 Autoglazier) apixaban 5 mg tablet (Eliquis) See Rx Instructions .Ro yumi 12/13/23 10/15/24 Rx .COMPLEX blood thinner #180 tabs melatonin 10 mg capsule 10 mg PO HS PRN insomnia 02/27 Unknown History sacubitril 97 mg-valsartan 103 mg 1 tab PO BID heart # 180 tabs 12/13/23 10/15/24 Rx tablet (Entresto) carvedilol 25 mg tablet 25 mg PO BID blood pressure #180 12/29/23 10/15/24 Rx tabs spironolactone 50 mg tablet 50 mg PO DAILY #90 TABLETS 03/20/24 10/15/24 Rx insulin aspart 20 unit subcut TID #15 mL 10/15/24 Rx (niacinamide)(U-100) 100 unit/mL(3 mL) subcutaneous pen (Fiasp FlexTouch U-100 Insulin) methimazole 10 mg tablet 10 mg PO DAILY thyroid #90 t abs 07/10/24 10/15/24 Rx furosemide 40 mg tablet 40 mg PO DAILY #30 tabs 01/2810/15/24 Rx insulin glargine-yfgn 100 unit/mL 50 unit (0.5 mL) sub cut DAILY #0 mL 09/11/24 10/15/24 Rx (3 mL) subcutaneous pen dulaglutide 3 mg/0.5 mL 3 mg (0.5 mL) subcut QWEEK # 2 mL 09/12/24 10/08/24 Rx subcutaneous pen injector (Trulicity) Dexcom G7 Sensor (blood-glucose #3 ea 09/17/24 Unknown Rx sensor) insulin lispro 100 unit/mL 30 unit subcut TIDCM 10/15/24 History subcutaneous pen (Humalog KwikPen (U-100) Insulin) Allergy/AdvReac Type Severity Reaction Status Date / Time amoxicillin trihydrate (From AdvReac Vomiting Verified 10/15/24 10:56 Augmentin) potassium clavulanate (From AdvReac Vomiting Verified 10/15/24 10:56 Augmentin) Family History Father Myocardial infarction Cancer prostate, leukemia Agent orange exposure Diabetes Sister Diabetes COPD (chronic obstructive pulmonary disease) Mother CVA (cerebral vascular accident) Hypertension Surgical History History of bladder surgery (~09/2023) History of cholecystectomy History of appendectomy History of coronary artery stent placement (05/19/21) Status post insertion of nerve stimulator History of laparoscopy History of tonsillectomy History of cholecystectomy (1991) History of hysterectomy History of left heart catheterization (09/14/21) History of back surgery Social History household members: significant other current occupational status: employed Smoking Status: Former smoker how long ago did patient quit smoking: Quit 1990, smoke 2 ppd since teen until quit. alcohol intake: current alcohol intake frequency: holidays/special occasions only substance use type: does not use caffeine: Yes ROS ROS ED Constitutional Constitutional ED: Denies chills or fever(s) Eyes Eyes: Denies blurry vision or change in vision ENT ENT ED: Denies rhinorrhea or sore throat Cardiovascular Cardiovascular: Reports chest pain and palpitations Respiratory/Chest Respiratory/Chest: Denies cough or dyspnea Gastrointestinal Gastrointestinal: Denies nausea or vomiting Genitourinary Genitourinary ED: Denies dysuria or hematuria Musculoskeletal Musculoskeletal: Reports back pain and neck pain Integumentary Denies abscess or rash Neurologic Neurologic: Denies headache(s) or weakness Allergic/Immunologic Allergic/Immunologic ED: Denies mouth swelling or urticaria EXAM Physical Exam Const Vital Signs: 10/15/24 10:31 10/15/24 12:16 10/15/24 12:52 Temperature 97 F L Temperature Source Temporal Pulse Rate 87 92 84 Respiratory Rate 18 16 14 Blood Pressure 139/90 H 140/88 H 150/98 H Blood Pressure Mean 106 105 115 Pulse Ox 98 99 100 Oxygen Delivery Method Room Air Room Air Room Air 10/15/24 13:57 Temperature Temperature Source Pulse Rate 84 Respiratory Rate 18 Blood Pressure 139/90 H Blood Pressure Mean 106 Pulse Ox 100 Oxygen Delivery Method Room Air Positive well nourished and well developed Constitutional Narrative: BMI is 36.0 General Appearance ED: well developed and NAD HEENT Reports moist mucous membranes Neck supple and no JVD Resp normal respiratory effort and clear to auscultation bilaterally Cardio regular rate and regular rhythm GI soft to palpation, non-tender and non-distended Neuro oriented x3, CN's II-XII intact bilaterally and no sensory deficits noted Sensorium / Orientation: awake and alert Motor Exam: strength 5/5 throughout Psych mental status grossly normal Heart Score History: Slightly/Non-Suspicious ECG: Nonspecific Repolarization Age: >45 - <65 years Risk Factors: 1 or 2 Risk Factors Troponin: </= Normal Limit Score: 3 MDM MDM MDM Narrative Medical decision making narrative: Differential diagnosis includes cardiac dysrhythmia, cardiac ischemia, pneumonia, bronchitis, electrolyte abnormality, dehydration, anxiety, and musculoskeletal pain. EKG will be obtained to assess for cardiac dysrhythmia cardiac ischemia. Chest x-ray will be obtained to assess for pneumonia and bronchitis. CBC will be obtained to assess for leukocytosis and anemia. Basic metabolic profile will be obtained to assess for electrolyte abnormality and renal function. High-sensitivity troponin will be obtained to assess for cardiac ischemia. 2-hour repeat high-sensitivity troponin will be obtained to assess for ongoing cardiac ischemia. History & Record Review Additional record(s) reviewed:: Prior outpatient record, Prior ED visit and Prior labs Lab Data Attestation: I reviewed the patient's lab results. Lab results narrative: CBC was reviewed and was within. Basic metabolic profile was reviewed. BUN was slightly elevated at 24 and creatinine was slightly elevated at 1.35. Glucose was mildly elevated at 203. High-sensitivity troponin was reviewed and was normal at 10. 2-hour repeat high-sensitivity troponin was reviewed and was normal at 10. Labs: Laboratory Results - last 24 hr 10/15/24 10/15/24 10:52 12:45 WBC 6.4 RBC 4.07 L Hgb 12.7 Hct 37.8 MCV 92.9 MCH 31.2 MCHC 33.6 RDW Std Deviation 51.8 H RDW Coeff of Tomi 15.1 H Plt Count 175 MPV 10.0 Immature Gran % (Auto) 0.300 Neut % (Auto) 65.5 Lymph % (Auto) 26.7 [place] % (Auto) 6.6 Eos % (Auto) 0.6 Baso % (Auto) 0.3 Absolute Neuts (auto) 4.2 Absolute Lymphs (auto) 1.70 Nucleated RBC % 0 Sodium 138 Potassium 4.1 Chloride 106 Carbon Dioxide 22.0 Anion Gap 10 BUN 24 H Creatinine 1.35 H Estim Creat Clear Calc 53.30 Est GFR (MDRD) Non-Af 47 L BUN/Creatinine Ratio 17.9 Glucose 203 H Calcium 9.3 Troponin T High Sens 10 Troponin T Hi Sens 2 Hr 10 Radiography Chest X-Ray - ED: 1 View, Read by ED Physician, Read by Radiologist, No Acute Disease and Cardiomegaly Diagnostic Testing: Clinical Impression(s) from Imaging Studies Chest X-Ray 10/15/24 10:55 IMPRESSION: Mild cardiomegaly. The lungs are clear. Reading Location: [facility] Portable 1 view chest x-ray was obtained. On my independent interpretation, lung benavides are clear. There is mild cardiomegaly. Bony thorax is normal. There is no acute process noted. Radiologist also interpreted the x-ray and agrees. EKG Initial EKG: Attestation: I personally reviewed and interpreted this EKG as follows: Interpretation: No Acute Injury Pattern and Paced Comments: EKG was obtained. On my independent interpretation, shows a paced rhythm with a rate of 83. MA interval was normal at 151 ms. QRS interval was slightly prolonged at 154 ms. QTc interval was 533 ms. [place] is normal. There are no acute ST or T wave changes noted. Prior EKG tracings: available for review Prior: Unchanged (09/09/2024) Treatment and Re-Evaluation :: Patient was given IV fluids. Patient was advised of her findings. Patient has a HEART score of 3. Patient was advised that this is low risk for acute cardiac event. Patient was instructed to follow-up with her primary care physician in 5 to 7 days. Patient understood and was agreeable with the plan. All questions were answered. Discharge Plan Triage Chief Complaint: Chest Pain ED Provider: Arjun Ortez Dx/Rx/DC Orders Clinical Impression: Chest pain, Type 2 diabetes mellitus Instructions: ED Chest Pain, Uncertain Cause Prescriptions: No Action melatonin 10 mg capsule 10 mg PO HS PRN (Reason: insomnia) sacubitril-valsartan [Entresto] 97-103 mg tablet 1 tab PO BID Qty: 180 3RF Eliquis 5 mg tablet See Rx Instructions .ROUTE .COMPLEX Qty: 180 3RF Dose Instruction: take 1 tablet by mouth twice a day Patient Comments: since 08/25 Rx Instructions: take 1 tablet by mouth twice a day Trulicity 3 mg/0.5 mL pen injector 3 mg subcut QWEEK Qty: 2 5RF Patient Comments: PT TAKES ON TUESDAY NIGHTS tizanidine 4 mg tablet 4 mg PO QHS diphenhydramine HCl 25 mg Tablet 25 mg PO Q4H PRN (Reason: Allergy Symptoms) promethazine 25 mg tablet 25 mg PO TID PRN (Reason: Nausea And Vomiting) hydrocodone-acetaminophen 5-325 mg tablet 1 tab PO Q8H PRN (Reason: pain) omeprazole magnesium [Prilosec OTC] 20 mg tablet,delayed release (DR/EC) 20 mg PO DAILY Movantik 25 mg tablet 25 mg PO QAM PRN (Reason: pain) Rx Instructions: must be taken on empty stomach; no food 1 hr after or 2-3 hrs before dose furosemide 40 mg Tablet 40 mg PO DAILY Qty: 30 1RF Patient Comments: PT IS TAKING TWICE A DAY PER DR insulin glargine-yfgn 100 unit/mL (3 mL) Insulin Pen 50 unit subcut DAILY Qty: 0 0RF insulin lispro [Humalog KwikPen Insulin] 100 unit/mL Insulin Pen 30 unit subcut TIDCM (DME) pen needle, diabetic [BD Ultra-Fine [place] Pen Needle] 32 gauge x 5/32 needle See Rx Instructions .Route Qty: 100 5RF Rx Instructions: 4x/day cholecalciferol (vitamin D3) 50 mcg (2,000 unit) capsule 1,000 unit PO DAILY Patient Comments: PT TAKES WHEN SHE REMEMBERS clopidogrel [Plavix] 75 mg tablet 75 mg PO DAILY Qty: 90 3RF atorvastatin 80 mg tablet See Rx Instructions .ROUTE .COMPLEX Qty: 360 0RF Dose Instruction: take 1 tablet by mouth at bedtime Rx Instructions: take 1 tablet by mouth at bedtime isosorbide mononitrate 30 mg tablet extended release 24 hr See Rx Instructions .ROUTE .COMPLEX Qty: 360 0RF Dose Instruction: take 1 tablet by mouth once daily Rx Instructions: take 1 tablet by mouth once daily (DME) Dexcom G7 Autoglazier Misc See Rx Instructions .Route Qty: 1 0RF Rx Instructions: As directed carvedilol 25 mg tablet 25 mg PO BID Qty: 180 3RF Rx Instructions: must administer with a meal/food spironolactone 50 mg tablet 50 mg PO DAILY Qty: 90 3RF Fiasp FlexTouch U-100 Insulin 100 unit/mL (3 mL) insulin pen 20 unit subcut TID Qty: 15 5RF methimazole 10 mg tablet 10 mg PO DAILY Qty: 90 1RF (DME) Dexcom G7 Sensor Device See Rx Instructions .Route Qty: 3 5RF Rx Instructions: 1 sensor q 14 days Primary Care Provider: Margo Tatum Referrals: Margo Tatum DO [Primary Care Provider] - 5-7 Days Print Language: Armenian Disposition Disposition: Home, Self Care Discharge Date/Time: 10/15/24 14:29
[2024-10-15 12:16] VITALS: BP 140/88; PULSE 92; RESP 16; O2SAT 99
[2024-10-15 12:52] VITALS: BP 150/98; PULSE 84; RESP 14; O2SAT 100
[2024-10-15] MEDS: 0.9% Normal Saline (1000mL) 1,000 ML 1000 ML IV (12:52)
[2024-10-15 13:57] VITALS: BP 139/90; PULSE 84; RESP 18; O2SAT 100
[2024-10-15 13:58] LABS: Troponin T High Sens 2 HR 10 ng/L (<=14)
== END 2024-10-15 14:29 | disposition home or self-care (01) ==
PROVIDERS: Emergency Provider Emergency Medicine; PCP Family Medicine; Visit Provider Emergency Medicine
DX: R07.9 Chest pain, unspecified (principal); I11.0 Hypertensive heart disease with heart failure; I50.22 Chronic systolic (congestive) heart failure; J44.9 Chronic obstructive pulmonary disease, unspecified; I42.8 Other cardiomyopathies; E11.9 Type 2 diabetes mellitus without complications; Z79.4 Long term (current) use of insulin; I25.10 Atherosclerotic heart disease of native coronary artery without angina pectoris; E78.5 Hyperlipidemia, unspecified; I25.2 Old myocardial infarction; Z79.899 Other long term (current) drug therapy; Z79.01 Long term (current) use of anticoagulants; Z87.891 Personal history of nicotine dependence; Z95.810 Presence of automatic (implantable) cardiac defibrillator; Z86.16 Personal history of COVID-19; Z95.5 Presence of coronary angioplasty implant and graft
CPT/HCPCS: 71045; 80048; 84484; 85025; 93005; 96360; 99283

== ENCOUNTER 2024-11-30 15:45 | Observation (INO) | payer OTHER, MEDICARE, SELFPAY ==
[2024-01-03 09:13] VITALS: BMI 35.5
[2024-11-30] VITALS (11 sets, daily range): BP systolic 126–159; BP diastolic 64–113; PULSE 86–97; RESP 18–26; TEMP 36.6–36.7; O2SAT 96–100; BMI 38.3; BMI 37.8
--- NOTE | 2024-11-30 15:54 | ED.VIS.DYS ---
HPI History of Present Illness Chief Complaint: Shortness of Breath Detail of Chief Complaint: Shortness of breath Informant: patient Narrative Narrative: Patient presents with shortness of breath that started around 1:30 AM. Patient states she woke up feeling short of breath. Describes some tightness across her chest. She is felt this way in the past with COPD exacerbations. She also has history of coronary artery disease. History of prior stents. She has got a pacer defibrillator. History of CHF. She denies fever however she has had some chills and a dry cough. She denies recent travel or surgery [facility] Medical History Chronic anticoagulation Pacemaker Hypothyroidism Chronic pain Asthma ICD (implantable cardioverter-defibrillator) in place Angina pectoris TRAE (acute kidney injury) Hypokalemia Hyperglycemia History of COPD History of DE (myocardial infarction) Antiplatelet or antithrombotic long-term use Anticoagulant long-term use Presence of cardiac 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 therapy defibrillator (MAGISTRATE JUDGE-D) Diabetes Atrial fibrillation Coronary artery disease Hypertension Paroxysmal atrial fibrillation Hyperthyroidism Vomiting Hirsutism Chronic nausea Non-ST elevation (NSTEMI) myocardial infarction Difficult intubation Syncope Thyroid nodule Kidney stones Former smoker COPD (chronic obstructive pulmonary disease) Irregular heart beat Myocardial infarct Seizures COVID-19 virus infection Cardiomyopathy, ischemic Atherosclerotic heart disease of [place] coronary artery without angina pectoris HFrEF (heart failure with reduced ejection fraction) Obesity Left bundle branch block (LBBB) Non-ischemic cardiomyopathy History of non-ST elevation myocardial infarction (NSTEMI) (09/08/21) Hyperglycemia due to type 2 diabetes mellitus Chronic low back pain Type 2 diabetes mellitus Hyperlipidemia Benign hypertension Home Medications ?Medication ?Instructions ?Recorded ?Last Taken ?Type BD Ultra-Fine [place] Pen Needle 32 #100 ea 07/29/22 Unknown Rx gauge x 5/32 (pen needle, diabetic) diphenhydramine HCl 25 mg tablet 25 mg PO Q4H PRN Allergy Symptoms 08/06/22 10/14/24 History hydrocodone-acetaminophen 5-325mg 1 tab PO Q8H PRN pain 08/06/22 10/14/24 History 5mg-325mg naloxegol 25 mg tablet (Movantik) 25 mg PO QAM PRN pain 08/06/22 Unknown History omeprazole magnesium 20 mg 20 mg PO DAILY reflux 08/06/22 10/15/24 History tablet,delayed release (Prilosec OTC) promethazine 25 mg tablet 25 mg PO TID PRN Nausea And 08/06/22 Unknown History Vomiting tizanidine 4 mg tablet 4 mg PO QHS muscle spasms 08/06/22 10/14/24 History cholecalciferol (vitamin D3) 50 1,000 unit PO DAILY vitamin 03/08/23 01/19/24 History mcg (2,000 unit) capsule clopidogrel 75 mg tablet (Plavix) 75 mg PO DAILY anti platelet #90 05/16/23 10/15/24 Rx tabs atorvastatin 80 mg tablet See Rx Instructions .Route 06/09/23 10/14/24 Rx .COMPLEX cholesterol #360 TABLETS isosorbide mononitrate 30 mg See Rx Instructions .Route 06/09/23 10/15/24 Rx tablet,extended release 24 hr .COMPLEX heart #360 TABLETS blood-glucose,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,cont #1 ea 10/10/23 Unknown Rx (Dexcom G7 Big Data Software Engineer) apixaban 5 mg tablet (Eliquis) See Rx Instructions .Route 12/13/23 10/15/24 Rx .COMPLEX blood thinner #180 tabs melatonin 10 mg capsule 10 mg PO HS PRN insomnia 12/13/23 Unknown History sacubitril 97 mg-valsartan 103 mg 1 tab PO BID heart #180 tabs 12/13/23 10/15/24 Rx tablet (Entresto) carvedilol 25 mg tablet 25 mg PO BID blood pressure #180 12/29/23 10/15/24 Rx tabs spironolactone 50 mg tablet 50 mg PO DAILY #90 TABLETS 03/20/24 10/15/24 Rx methimazole 10 mg tablet 10 mg PO DAILY thyroid #90 tabs 07/10/24 10/15/24 Rx furosemide 40 mg tablet 40 mg PO DAILY #30 tabs 09/11/24 10/15/24 Rx insulin glargine-yfgn 100 unit/mL 50 unit (0.5 mL) subcut DAILY #0 mL 09/11/24 10/15/24 Rx (3 mL) subcutaneous pen Dexcom G7 Sensor (blood-glucose #3 ea 09/17/24 Unknown Rx sensor) insulin lispro 100 unit/mL 30 unit subcut TIDCM 10/15/24 10/15/24 History subcutaneous pen (Humalog KwikPen (U-100) Insulin) dulaglutide 4.5 mg/0.5 mL 4.5 mg (0.5 mL) subcut QWEEK #2 mL 11/07/24 Unknown Rx subcutaneous pen injector (Trulicity) Allergy/AdvReac Type Severity Reaction Status Date / Time amoxicillin trihydrate (From AdvReac Vomiting Verified 11/30/24 15:50 Augmentin) potassium clavulanate (From AdvReac Vomiting Verified 11/30/24 15:50 Augmentin) Family History Father Myocardial infarction Cancer prostate, leukemia Agent orange exposure Diabetes Sister Diabetes COPD (chronic obstructive pulmonary disease) Mother CVA (cerebral vascular accident) Hypertension Surgical History History of bladder surgery (~09/2023) History of cholecystectomy History of appendectomy History of coronary artery stent placement (05/19/21) Status post insertion of nerve stimulator History of laparoscopy History of tonsillectomy History of cholecystectomy (1991) History of hysterectomy History of left heart catheterization (09/14/21) History of back surgery Social History household members: significant other current occupational status: employed Smoking Status: Former smoker how long ago did patient quit smoking: Quit 1990, smoke 2 ppd since teen until quit. alcohol intake: current alcohol intake frequency: holidays/special occasions only substance use type: does not use caffeine: Yes ROS ROS ED Review of Systems ROS Unobtainable: other Constitutional Constitutional ED: Reports lethargy; Denies chills, fever(s), sweats or weight loss Eyes Eyes: Denies blurry vision, change in vision or diplopia ENT ENT ED: Denies rhinorrhea or sore throat Cardiovascular Cardiovascular: Denies chest pain, orthopnea or racing heartbeat Respiratory/Chest Respiratory/Chest: Reports cough, dyspnea and dyspnea on exertion; Denies orthopnea or sputum Gastrointestinal Gastrointestinal: Denies abdominal pain, diarrhea, nausea or vomiting Genitourinary Genitourinary ED: Denies dysuria, hematuria or urinary frequency Musculoskeletal Musculoskeletal: Denies arthralgias, back pain, myalgias or neck pain Integumentary Denies abscess, Abrasions or rash Neurologic Neurologic: Denies headache(s) or weakness Psychiatric Psychiatric: Denies anxiety, depression or suicidal thoughts Endocrine Endocrinology: Denies polydipsia, polyphagia or polyuria Hematologic/Lymphatic Hematologic/Lymphatic: Denies easy bleeding, easy bruising or lymphadenopathy Allergic/Immunologic Allergic/Immunologic ED: Denies mouth swelling, tongue swelling or urticaria EXAM Physical Exam Const Vital Signs: 11/30/24 15:47 11/30/24 15:50 11/30/24 16:13 Temperature 98.1 F Temperature Source Oral Pulse Rate 88 97 Respiratory Rate 25 H 26 H Respiratory Effort Short of Breath Respiratory Pattern Tachypnea Tachypnea Blood Pressure 154/99 H Blood Pressure Mean 117 Pulse Ox 98 Oxygen Delivery Method Room Air Room Air 11/30/24 16:15 11/30/24 16:45 11/30/24 17:00 Temperature Temperature Source Pulse Rate 95 88 Respiratory Rate 25 H 23 H Respiratory Effort Respiratory Pattern Blood Pressure 127/64 H 127/64 H Blood Pressure Mean 85 85 Pulse Ox 100 100 Oxygen Delivery Method Room Air Room Air 11/30/24 18:00 Temperature Temperature Source Pulse Rate 86 Respiratory Rate 23 H Respiratory Effort Respiratory Pattern Blood Pressure 126/96 H Blood Pressure Mean 106 Pulse Ox 100 Oxygen Delivery Method Positive well nourished and well developed General Appearance ED: well developed and NAD HEENT Reports TM's clear and moist mucous membranes normocephalic and atraumatic; Negative for trauma or tenderness Tympanic Membrane ED: Yes TM's clear Eyes PERRL and EOMs intact bilaterally General Eye ED: Negative for pale conjunctiva or scleral icterus Neck no lymphadenopathy, supple and no JVD General: Negative for tenderness Chest Wall inspection of chest normal and palpation of chest normal Chest: Negative for tenderness Resp No normal respiratory effort and No clear to auscultation bilaterally Effort and Inspection: Negative for respiratory distress or pain with movement Auscultation: wheezes; Negative for rhonchi or diminished lung sounds Cardio regular rate, regular rhythm, S1 normal heart sound, S2 normal heart sound and no murmurs Peripheral Pulses: pulses 2+ throughout GI normal to inspection, nondistended, normoactive bowel sounds, soft to palpation, non-tender, non-distended and no masses Back/Spine no CVA tenderness and no thoracic nor lumbar tenderness Extremity normal to inspection General Extremety ED: Negative for edema General Extremity: Negative for edema Neuro oriented x3, CN's II-XII intact bilaterally, no sensory deficits noted and gait normal Sensorium / Orientation: awake, alert, oriented to person, oriented to place and oriented to time Motor Exam: strength 5/5 throughout and strength abnormal Psych mental status grossly normal Skin no rashes or lesions noted and no wounds MDM MDM MDM Narrative Medical decision making narrative: Patient presents to the emergency department with dyspnea with history of COPD as well as CHF. States symptoms worse when lying flat. Not hypoxic on arrival. In the differential be CHF versus COPD versus infectious etiology versus less likely PE as she is anticoagulated. IV line established. EKG obtained arrival showed a sinus paced rhythm with rate of 95 bpm with occasional PVCs. CBC with differential shows a white count of 7.3 with hemoglobin 12.2 and platelet count of 184. Chemistries unremarkable. Troponin normal at 7. BNP was 1366. Chest x-ray unremarkable. While in department she received DuoNeb aerosol as well as albuterol aerosols. She was given Solu-Medrol. Because of the elevated BT GSE MECHANIC she was given 80 mg Lasix IV. Discussed results with patient. She still feeling dyspneic especially when lying flat. Slight diaphoretic. She is not comfortable going home and I discussed with hospitalist will evaluate patient for admission for observation and diuresis. Patient admitted in stable condition Lab Data Attestation: I reviewed the patient's lab results. Labs: Laboratory Results - last 24 hr 11/30/24 16:05 WBC 7.3 RBC 3.97 L Hgb 12.2 Hct 37.0 MCV 93.2 MCH 30.7 MCHC 33.0 RDW Std Deviation 47.7 H RDW Coeff of Tomi 14.0 Plt Count 184 MPV 10.4 Immature Gran % (Auto) 0.300 Neut % (Auto) 61.9 Lymph % (Auto) 30.4 [place] % (Auto) 5.2 Eos % (Auto) 1.9 Baso % (Auto) 0.3 Absolute Neuts (auto) 4.5 Absolute Lymphs (auto) 2.22 Nucleated RBC % 0 D-Dimer Quant (PE/DVT) 0.49 Sodium 137 Potassium 4.4 Chloride 105 Carbon Dioxide 20.1 L Anion Gap 11 BUN 23 H Creatinine 0.85 Estim Creat Clear Calc 87.65 Est GFR (MDRD) Non-Af 81 BUN/Creatinine Ratio 26.3 H Glucose 300 H Calcium 8.4 Troponin T High Sens 7 D NT pro BNP II 1366 H Radiography Diagnostic Testing: Clinical Impression(s) from Imaging Studies Chest X-Ray 11/30/24 16:55 IMPRESSION: Stable mild cardiomegaly. Reading Location: [facility] Discharge Plan Triage Chief Complaint: Shortness of Breath ED Provider: Allen Meraz Dx/Rx/DC Orders Clinical Impression: Dyspnea, CHF (congestive heart failure), COPD exacerbation Prescriptions: No Action melatonin 10 mg capsule 10 mg PO HS PRN (Reason: insomnia) sacubitril-valsartan [Entresto] 97-103 mg tablet 1 tab PO BID Qty: 180 3RF Eliquis 5 mg tablet See Rx Instructions .ROUTE .COMPLEX Qty: 180 3RF Dose Instruction: take 1 tablet by mouth twice a day Patient Comments: since 08/25 Rx Instructions: take 1 tablet by mouth twice a day Trulicity 4.5 mg/0.5 mL pen injector 4.5 mg subcut QWEEK Qty: 2 3RF tizanidine 4 mg tablet 4 mg PO QHS diphenhydramine HCl 25 mg Tablet 25 mg PO Q4H PRN (Reason: Allergy Symptoms) promethazine 25 mg tablet 25 mg PO TID PRN (Reason: Nausea And Vomiting) hydrocodone-acetaminophen 5-325 mg tablet 1 tab PO Q8H PRN (Reason: pain) omeprazole magnesium [Prilosec OTC] 20 mg tablet,delayed release (DR/EC) 20 mg PO DAILY Movantik 25 mg tablet 25 mg PO QAM PRN (Reason: pain) Rx Instructions: must be taken on empty stomach; no food 1 hr after or 2-3 hrs before dose furosemide 40 mg Tablet 40 mg PO DAILY Qty: 30 1RF Patient Comments: PT IS TAKING TWICE A DAY PER DR insulin glargine-yfgn 100 unit/mL (3 mL) Insulin Pen 50 unit subcut DAILY Qty: 0 0RF insulin lispro [Humalog KwikPen Insulin] 100 unit/mL Insulin Pen 30 unit subcut TIDCM (DME) pen needle, diabetic [BD Ultra-Fine [place] Pen Needle] 32 gauge x 5/32 needle See Rx Instructions .Route Qty: 100 5RF Rx Instructions: 4x/day cholecalciferol (vitamin D3) 50 mcg (2,000 unit) capsule 1,000 unit PO DAILY Patient Comments: PT TAKES WHEN SHE REMEMBERS clopidogrel [Plavix] 75 mg tablet 75 mg PO DAILY Qty: 90 3RF atorvastatin 80 mg tablet See Rx Instructions .ROUTE .COMPLEX Qty: 360 0RF Dose Instruction: take 1 tablet by mouth at bedtime Rx Instructions: take 1 tablet by mouth at bedtime isosorbide mononitrate 30 mg tablet extended release 24 hr See Rx Instructions .ROUTE .COMPLEX Qty: 360 0RF Dose Instruction: take 1 tablet by mouth once daily Rx Instructions: take 1 tablet by mouth once daily (DME) Dexcom G7 Big Data Software Engineer Misc See Rx Instructions .Route Qty: 1 0RF Rx Instructions: As directed carvedilol 25 mg tablet 25 mg PO BID Qty: 180 3RF Rx Instructions: must administer with a meal/food spironolactone 50 mg tablet 50 mg PO DAILY Qty: 90 3RF methimazole 10 mg tablet 10 mg PO DAILY Qty: 90 1RF (DME) Dexcom G7 Sensor Device See Rx Instructions .Route Qty: 3 5RF Rx Instructions: 1 sensor q 14 days Primary Care Provider: Margo Tatum Referrals: Margo Tatum DO [Primary Care Provider] - Print Language: Luxembourgish Disposition Disposition: Acute Care Hospital [facility]
[2024-11-30] MEDS: Albuterol 2.5 MG/3 ML VIAL.NEB. INHALATION ×3 (16:12→16:14)
[2024-11-30] MEDS: Ipratropium/Albuterol Sulfate 3 ML AMPUL.NEB INHALATION ×2 (16:12→17:14)
[2024-11-30 16:24] LABS: Absolute Lymphocyte Count 2.22 X10^3/uL (0.83-4.51); Absolute Neutrophil Count 4.5 X10^3/uL (2.0-7.7); Basophil# 0.02 X10^3/uL; Basophil% 0.3 % (0-1); Eosinophil# 0.14 X10^3/uL; Eosinophils% 1.9 % (0-5); Hemoglobin 12.2 g/dL (12.0-15.0); Lymphocyte # 2.22 X10^3/ul (0.83-4.51); Lymphocyte % 30.4 % (19-41); Mean Corpuscular Hgb 30.7 pg (27.0-32.0); Mean Corpuscular Volume 93.2 fL (81-99); Mean Platelet Vol. 10.4 fl (6.2-12.0); Monocyte# 0.38 X10^3/uL; Monocyte% 5.2 % (0-10); NRBC Flagged by Analyzer 0 % (0-5); Neutrophil # 4.53 X10^3/uL (2.7-7.7); Neutrophil % 61.9 % (47-70); Platelet Count 184 K/mm3 (150-450); RBC Distribution Width SD 47.7 fl (35.1-43.9); Red Blood Count 3.97 M/mm3 (4.2-5.4); White Blood Count 7.3 K/mm3 (4.4-11.0)
[2024-11-30] MEDS: MethylPREDNISolone 125 MG/2 ML Vial IV (16:38)
[2024-11-30 16:41] LABS: Troponin T High Sensitivity 7 ng/L (<=14)
[2024-11-30 16:44] LABS: Anion Gap 11 (5-15); BUN 23 mg/dL (4-19); BUN/Creat Ratio 26.3 RATIO (10-20); Calcium,Total 8.4 mg/dL (7.6-11.0); Carbon Dioxide 20.1 mmol/L (21.0-32.0); Chloride 105 mmol/L (98-108); Creatinine, Serum 0.85 mg/dL (0.70-1.20); EST Glomerular Filtration Rate 81 (>60); Estimated Creatinine Clearance 87.65 ml/min (50-250); Glucose 300 mg/dL (70-99); Potassium 4.4 mmol/L (3.3-5.1); Sodium Level 137 mmol/L (133-145)
--- NOTE | 2024-11-30 16:55 | RAD_ITS ---
PROCEDURE: CHEST 1 VIEW (PORTABLE) 11/30/2024 REASON FOR EXAM: DYSPNEA TECHNIQUE: Frontal view of the chest. COMPARISON: Chest radiograph 10/15/2024. FINDINGS: Hardware: Stable left-sided dual-chamber pacemaker. Partially visualized spinal cord stimulators. Heart: Stable mild cardiomegaly with pulmonary vascular congestion. Lungs: No focal consolidation, pleural effusion or pneumothorax. Bones: Degenerative changes are identified within the thoracic spine. RAD/Chest 1 View (Portable) IMPRESSION: Stable mild cardiomegaly. Reading Location: [id number]
[2024-11-30 17:02] LABS: Pro- Brain NATRIURETIC PEPTIDE 1366 pg/mL (<=900)
[2024-11-30 17:08] LABS: D-Dimer Quantitative (DVT/PE) 0.49 FEU/ug/m (0.27-0.49)
--- NOTE | 2024-11-30 19:04 | HP.PCM.HOS_ITS ---
HPI - General General Date of Admission: 11/30/24 Date of Service: 11/30/24 Chief Complaint: Worsening shortness of breath HPI Narrative PITO CLARK, is a 53-year-old female history of pacemaker/AICD, coronary artery disease with stenting, asthma/COPD, A-fib, heart failure, diabetes, hyperthyroidism presented [facility] ED 11/30/2024 for shortness of breath that started at 1:30 AM. She woke up feeling short of breath and felt some tightness across her chest and notes she is felt similar when she has had COPD exacerbations or difficulties with her breathing before. No fever but has had some chills and dry cough. In the ED patient afebrile, heart rate 88 and blood pressure 154/99, respiratory rate 25 and pulse ox 98% on room air. CBC with normal white blood cell count and BMP with a BUN of 23 and a creatinine of 0.85, glucose 300. Initial troponin of 7. proBNP 1366. D-dimer 0.49. Chest x-ray with stable cardiomegaly and COVID/flu/RSV negative. Patient given nebs, Solu-Medrol, and IV Lasix for concern for COPD exacerbation and CHF exacerbation overlap and hospitalist contacted for admission. Patient evaluated at bedside, sitting up on side of bed and reports that she usually sleeps on 3 pillows and has sleep apnea but has not been able to tolerate CPAP but overnight despite sleeping on 3 pillows she woke up short of breath at 1:30 AM. She has had a little bit of a dry cough for a couple of days that is worsened today without any significant sputum production. Denies any swelling in her legs, no fevers that she noted, when she is having a difficult time with her breathing she does note some tightness across her chest, feels a little bit better since receiving DuoNebs and Lasix but still reports when she lays back she gets short of breath. She reports compliance with home medications including her inhalers and her Eliquis. 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) Diabetes Atrial fibrillation Coronary artery disease Hypertension Paroxysmal atrial fibrillation Hyperthyroidism Vomiting Hirsutism Chronic nausea Non-ST elevation (NSTEMI) myocardial infarction Difficult intubation Syncope Thyroid nodule Kidney stones Former smoker COPD (chronic obstructive pulmonary disease) Irregular heart beat Myocardial infarct Seizures COVID-19 virus infection Cardiomyopathy, ischemic Atherosclerotic heart disease of [place] coronary artery without angina pectoris HFrEF (heart failure with reduced ejection fraction) Obesity Left bundle branch block (LBBB) Non-ischemic cardiomyopathy History of non-ST elevation myocardial infarction (NSTEMI) (09/08/21) Hyperglycemia due to type 2 diabetes mellitus Chronic low back pain Type 2 diabetes mellitus Hyperlipidemia Benign hypertension Home Medications ?Medication ?Instructions ?Recorded ?Last Taken ?Type BD Ultra-Fine [place] Pen Needle 32 #100 ea 07/29/22 Unkn own Rx gauge x /32 (pen needle, diabetic) diphenhydramine HCl 25 mg tablet 25 mg PO Q4H PRN Juaquin rgy Symptoms 08/06/22 10/14/24 History hydrocodone-acetaminophen 5-325mg 1 tab PO BID PRN ross n 08/06/22 10/14/24 History 5mg-325mg naloxegol 25 mg tablet (Movantik) 25 mg PO QAM PRN ross n 08/06/22 Unknown History omeprazole magnesium 20 mg 20 mg PO DAILY reflux 08/0610/15/24 History tablet,delayed release (Prilosec OTC) promethazine 25 mg tablet 25 mg PO TID PRN Nausea And 08/06/22 Unknown History Vomiting tizanidine 4 mg tablet 4 mg PO QHS muscle spasms 10/14/24 History cholecalciferol (vitamin D3) 50 1,000 unit PO DAILY vi tamin 03/08/23 01/19/24 History mcg (2,000 unit) capsule clopidogrel 75 mg tablet (Plavix) 75 mg PO DAILY anti platelet #90 05/16/23 10/15/24 Rx tabs atorvastatin 80 mg tablet See Rx Instructions .Route 0 06/09/23 10/14/24 Rx .COMPLEX cholesterol #360 TABLETS isosorbide mononitrate 30 mg See Rx Instructions .Rout e 06/09/23 10/15/24 Rx tablet,extended release 24 hr .COMPLEX heart #360 TABL ETS blood-glucose,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,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 #1 ea 10/10/23 Unknown 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) apixaban 5 mg tablet (Eliquis) See Rx Instructions .Ro [place] 12/13/23 10/15/24 Rx .COMPLEX blood thinner #180 tabs melatonin 10 mg capsule 10 mg PO HS PRN insomnia 02/27 Unknown History sacubitril 97 mg-valsartan 103 mg 1 tab PO BID heart # 180 tabs 12/13/23 10/15/24 Rx tablet (Entresto) carvedilol 25 mg tablet 25 mg PO BID blood pressure #180 12/29/23 10/15/24 Rx tabs spironolactone 50 mg tablet 50 mg PO DAILY #90 TABLETS 03/20/24 10/15/24 Rx methimazole 10 mg tablet 10 mg PO DAILY thyroid #90 t abs 07/10/24 10/15/24 Rx furosemide 40 mg tablet 40 mg PO DAILY #30 tabs 04/01/2810/15/24 Rx insulin glargine-yfgn 100 unit/mL 50 unit (0.5 mL) sub cut DAILY #0 mL 09/11/24 10/15/24 Rx (3 mL) subcutaneous pen Dexcom G7 Sensor (blood-glucose #3 ea 09/17/24 Unknown Rx sensor) insulin lispro 100 unit/mL 36 unit subcut TIDCM 10/15/24 History subcutaneous pen (Humalog KwikPen (U-100) Insulin) dulaglutide 4.5 mg/0.5 mL 4.5 mg (0.5 mL) subcut QWEEK #2 mL 11/07/24 Unknown Rx subcutaneous pen injector (Trulicity) Allergy/AdvReac Type Severity Reaction Status Date / Time amoxicillin trihydrate (From AdvReac Vomiting Verified 11/30/24 15:50 Augmentin) potassium clavulanate (From AdvReac Vomiting Verified 11/30/24 15:50 Augmentin) Family History Father Myocardial infarction Cancer prostate, leukemia Agent orange exposure Diabetes Sister Diabetes COPD (chronic obstructive pulmonary disease) Mother CVA (cerebral vascular accident) Hypertension Surgical History History of bladder surgery (~09/2023) History of cholecystectomy History of appendectomy History of coronary artery stent placement (05/19/21) Status post insertion of nerve stimulator History of laparoscopy History of tonsillectomy History of cholecystectomy (1991) History of hysterectomy History of left heart catheterization (09/14/21) History of back surgery Social History household members: significant other current occupational status: employed Smoking Status: Former smoker how long ago did patient quit smoking: Quit 1990, smoke 2 ppd since teen until quit. alcohol intake: current alcohol intake frequency: holidays/special occasions only substance use type: does not use caffeine: Yes ROS ROS Narrative General: Denies fever HENT: Denies headache, denies stuffy nose, denies sore throat EYES: Denies changes in vision Resp: Shortness of breath, especially when laying flat, dry cough Cardiac: Some chest tightness with her shortness of breath GI: Denies abdominal pain, denies changes in bowel, denies nausea/vomiting : Denies changes in urination Extremity: Denies any new swelling MSK: Denies weakness Neuro: Denies any numbness/tingling Heme: Denies any bleeding or bruising Skin: Denies rashes Psychiatric: Patient anxious and tearful about lying flat Vital Signs Vital Signs Vital Signs: 11/30/24 15:47 11/30/24 15:50 11/30/24 16:13 Temperature 98.1 F Temperature Source Oral Pulse Rate 88 97 Respiratory Rate 25 H 26 H Respiratory Effort Short of Breath Respiratory Pattern Tachypnea Tachypnea Blood Pressure 154/99 H Blood Pressure Mean 117 Pulse Ox 98 Oxygen Delivery Method Room Air Room Air 11/30/24 16:15 11/30/24 16:45 11/30/24 17:00 Temperature Temperature Source Pulse Rate 95 88 Respiratory Rate 25 H 23 H Respiratory Effort Respiratory Pattern Blood Pressure 127/64 H 127/64 H Blood Pressure Mean 85 85 Pulse Ox 100 100 Oxygen Delivery Method Room Air Room Air 11/30/24 18:00 11/30/24 19:00 Temperature Temperature Source Pulse Rate 86 93 Respiratory Rate 23 H 24 H Respiratory Effort Respiratory Pattern Blood Pressure 126/96 H 145/112 H Blood Pressure Mean 106 123 Pulse Ox 100 100 Oxygen Delivery Method Room Air Weight Weight: 101.4 kg Body Mass Index (BMI) 38.3 Physical Exam Narrative General: Alert, oriented, appears anxious HEENT: Atraumatic, normocephalic Eyes: Anicteric, normal conjunctiva, extraocular movements grossly intact Neck: Supple Respiratory: Slight increased respiratory effort, little bit diminished at the bases but no overt wheezes or crackles Cardiovascular: Regular rate and rhythm GI: Soft, nontender, nondistended Extremities: No significant pitting peripheral edema Musculoskeletal: Moving all extremities Neuro: No overt focal neurological deficits Skin: No rashes appreciated Psych: Cooperative but tearful and anxious Results Lab / Micro Data 11/30/24 16:05 11/30/24 16:05 Labs: Laboratory Results - last 24 hr 11/30/24 16:05: WBC 7.3, RBC 3.97 L, Hgb 12.2, Hct 37.0, MCV 93.2, MCH 30.7, MCHC 33.0, RDW Std Deviation 47.7 H, RDW Coeff of Tomi 14.0, Plt Count 184, MPV 10.4, Immature Gran % (Auto) 0.300, Neut % (Auto) 61.9, Lymph % (Auto) 30.4, [place] % (Auto) 5.2, Eos % (Auto) 1.9, Baso % (Auto) 0.3, Absolute Neuts (auto) 4.5, Absolute Lymphs (auto) 2.22, Nucleated RBC % 0, D-Dimer Quant (PE/DVT) 0.49, Sodium 137, Potassium 4.4, Chloride 105, Carbon Dioxide 20.1 L, Anion Gap 11, BUN 23 H, Creatinine 0.85, Estim Creat Clear Calc 87.65, Est GFR (MDRD) Non- Af 81, BUN/Creatinine Ratio 26.3 H, Glucose 300 H, Calcium 8.4, Troponin T High Sens 7 D, NT pro BNP II 1366 H Micro: Microbiology 11/30/24 16:40 Mucosa - Nose SARS-CoV-2, Influenza & RSV (PCR) - Final Imaging Radiology Impression Chest X-Ray 11/30/24 16:55 IMPRESSION: Stable mild cardiomegaly. Reading Location: [id number] Assessment & Plan Assessment/Plan (1) Shortness of breath: PLAN: Plan # Increased shortness of breath secondary to acute exacerbation of COPD and acute exacerbation of heart failure reduced ejection fraction overlap -Patient has increased cough and shortness of breath and had some wheezing on presentation and did have partial relief from DuoNebs but also has an elevated BNP and is short of breath when lying flat -Admit to telemetry -proBNP 1300 -CXR similar to previous -Continue IV lasix -Last echo 01/20/2024 with EF 50 to 55% and at that time no diastolic dysfunction -Repeat echo ordered -Daily weights, I's and O's -Fluid restriction, heart healthy diet continuous O2 monitoring -COVID negative, obtain respiratory panel -IV methylprednisone -Scheduled DuoNebs -Albuterol prn -Incentive spirometer -Mucinex - Also will check TSH and free T4 and free T3 given her history of thyroid dysfunction #Paroxysmal Atrial Fibrillation - Continue home Eliquis #Type 2 diabetes mellitus -Glucose checks and sliding scale insulin -Is hyperglycemic, adjust/uptitrate insulin as needed especially given steroid administration # History of hyperthyroidism -Patient on methimazole - Checking thyroid studies in the a.m. #Hx of CAD -w/ previous stenting -Continue home medications #KANIKA -Patient reports she has not been able to be compliant with his CPAP due to the mask, advise she follow-up outpatient to discuss other options to manage her sleep apnea #GERD -Continue PPI #DVT ppx: On chronic full dose anticoagulation Suma Mathew MD Charges/Coding Visit Charges Inpatient E&M: 31651 Init Hosp L2
[2024-11-30] MEDS: Furosemide 100 MG/10 ML Vial 80 MG IV (19:23)
--- OUTSIDE RECORDS SUMMARY | 2024-11-30 19:45 | XMS RPT_ITS | CCD ---
Author Organization [facility] Care Team Providers Care Crusher Screen Repairer Name Role Phone Dr. Margo Tatum Primary Care Provider [phone] Alek Jc Emergency Provider Dr. Gustavo Kurtz Attending Provider Dr. Cr Ho Attending Provider Dr. Gustavo Kurtz Referring Provider Dr. Gustavo Kurtz Admit Provider Dr. Cr Ho Other Provider Dr. Navdeep Bourgeois Other Provider Dr. Maria T Ramires Attending Provider Dr. Camilo Ramirez Emergency Provider [phone] Aidan Staples Admit Provider Dr. Aidan Staples Attending Provider Dr. Aidan Staples Other Provider Dr. Aidan Staples Referring Provider Dr. Gustavo Leslie Attending Provider Dr. Gustavo Leslie Other Provider Dr. Francine Steele Other Provider Dr. Francine Steele Attending Provider Dr. Maribel Gilbert Other Provider Dr. Maribel Gilbert Attending Provider Dr. Margo Tatum Referring Provider [phone] Stacey HOPPER, WARD Rubio Attending Provider MD Carlos Saleem Emergency Provider Dr. Damaris Thibodeaux Admit Provider Dr. Damaris Thibodeaux Attending Provider Dr. Damaris Thibodeaux Other Provider Dr. Víctor Alvarez Emergency Provider Dr. Perlita Gómez Attending Provider Dr. Perlita Gómez Admit Provider Dr. Perlita Gómez Referring Provider Dr. Herminio Magana Attending Provider Dr. Herminio Magana Other Provider Dr. Mary Mehta Attending Provider Dr. Margo Tatum Primary Care Provider [phone] Alek Jc Emergency Provider Dr. Cr Ho Attending Provider Dr. Margo Tatum Primary Care Provider Dr. Camilo Ramirez Emergency Provider Dr. Aidan Staples Admit Provider Dr. Cr Ho Attending Provider Dr. Aidan Staples Referring Provider Dr. Aidan Staples Other Provider Dr. Aidan Staples Attending Provider Dr. Margo Tatum Primary Care Provider Dr. Gustavo Leslie Attending Provider Dr. Perlita Gómez Referring Provider Dr. Gustavo Leslie Other Provider Dr. Cr Ho Attending Provider Dr. Joslyn Ly Attending Provider Dr. Aidan Staples Referring Provider Dr. Margo Tatum Referring Provider [phone] Dr. Margo Tatum Primary Care Provider Rc, Dr. Aragon Primary Care Provider Rc, Dr. Aragon Referring Provider Jaz COFFMAN, PALS SPECIALIST-C Francine Rubio Attending Provider [phone] WARD Mallory Attending Provider Dr. Cr Ho Attending Provider Dr. Arun Marc Attending Provider [phone] [place] PALS SPECIALIST, PALS SPECIALIST-Norris Whelan Attending Provider Rc, Dr. Aragon Primary Care Provider Rc, Dr. Aragon Referring Provider Jaz COFFMAN, PALS SPECIALIST-C Francine Rubio Attending Provider [phone] WARD Mallory Attending Provider Dr. Cr Ho Attending Provider [phone] Arun Marc Attending Provider [phone] Ro[place] PALS SPECIALIST, PALS SPECIALIST-Norris Whelan Attending Provider Rc, Dr. Aragon Primary Care Provider Dr. Margo Tatum Referring Provider CARMEN Tom Attending Provider Rc, Dr. Aragon Primary Care Provider Rc, Dr. Aragon Referring Provider [phone] Dr. Cr Ho Attending Provider [phone] Edward Hancock Attending Provider Rc, Dr. Aragon Primary Care Provider Dr. Margo Tatum Referring Provider Roof PALS SPECIALIST, AUGUSTUS-Norris Whelan Attending Provider Dr. Margo Tatum Primary Care Provider Dr. Cr Ho Attending Provider 1([facility])-[phone] Arjun Ortez Emergency Provider 1([facility])[phone] Dr. Patel Nguyenit Provider 1([facility])[phone] Patel Nguyen Attending Provider 1([facility]) [phone] Dr. Patel Nguyen Other Provider 1([facility])[phone] Suma Mathew Other Provider Dr. Gustavo Leslie Attending Provider 1([facility])[phone] Dr. Suma Mathew Attending Provider 1([facility])[phone] Ro[place] COMPUTER TECHNICIAN, Bryan Unavailable Margo Tatum DO Primary Care Provider 1([facility])[phone] Ro[place] COMPUTER TECHNICIAN, Bryan Unavailable Dr. Margo Tatum Primary Care Provider 1([facility])[phone] Dr. Margo Tatum Referring Provider 1([facility])[phone] CARMEN Tom Attending Provider 1([facility])[phone] Dr. Arjun Ortez Emergency Provider 1([facility])- [phone] Wendy, Dr. Patel Paul Provider 1([facility])[phone] Patel Nguyen Attending Provider 1([facility]) [phone] Dr. Patel Nguyen Other Provider 1([facility])[phone] Cr Ho Attending Provider 1([facility])-[phone] Patel Nguyen Referring Provider 1([facility])[phone] Dr. Suma Mathew Other Provider Dr. Gustavo Leslie Attending Provider 1([facility]) -[phone] Dr. Suma Mathew Attending Provider 1([facility])[phone] Jak Loaiza Attending Provider 1([facility])[phone] Dr. Víctor Alvarez Referring Provider 1([facility])[phone] CARMEN Mitchell NP Attending Provider 1([facility])[phone] Dr. Margo Tatum Primary Care Provider 1([facility])[phone] Dr. Margo Tatum Referring Provider 1([facility])[phone] CARMEN Tom Attending Provider 1([facility])[phone] MALYS, MARGO Primary Care Unavailable NASSAL, RUPALI M Attending Unavailable LAUGHLIN, MICHAELING Primary Care Unavailable MALYS, MARGO Primary Care Unavailable MALYS, MARGO Attending Unavailable SELF, SELF Referring Unavailable KRISTINA, LIZBETH Attending Unavailable MALYS, MARGO Primary Care Unavailable VITO, SERAFIN G Referring Unavailable MALYS, MARGO Primary Care Unavailable ROOF, BRYAN Referring Unavailable VITO, SERAFIN G Attending Unavailable MALYS, MARGO Primary Care Unavailable VITO, SERAFIN G Admitting Unavailable VITO, SERAFIN G Attending Unavailable VITO, SERAFIN G Referring Unavailable Mallast, Dr. Aragon Primary Care Provider 1([facility])[phone] Dr. Cr Ho Attending Provider 1([facility])-[phone] Margo Tatum Primary Care Provider 1([facility])[phone] Dr. Margo Tatum Referring Provider 1([facility])[phone] CARMEN Tom Attending Provider 1([facility])[phone] Dr. Cr Ho Attending Provider 1([facility])-[phone] Margo Tatum Primary Care Provider 1([facility])[phone] Dr. Cr Ho Attending Provider 1([facility])-[phone]. Margo Tatum Referring Provider 1([facility])[phone] CARMEN Tom Attending Provider 1([facility])[phone] Dr. Edward Hancock Attending Provider 1([facility])[phone] Dr. Margo Tatum Primary Care Provider 1([facility])[phone] Dr. Cr Ho Attending Provider 1([facility])[phone] Margo Tatum Referring Provider 1([facility])[phone] CARMEN Tom Attending Provider 1([facility])[phone] Dr. Edward Hancock Attending Provider [phone] Margo Tatum Primary Care Provider 1([facility])[phone] Dr. Cr Ho Attending Provider 1([facility])[phone] Rell Leora Emergency Provider 1([facility])[phone] Dr. Perlita Gómez Admit Provider 1([facility])[phone] Perlita Gómez Other Provider Dr. Emiliano Campoverde Other Provider Dr. Aidan Staples Attending Provider Dr. Aidan Staples Other Provider Dr. Damaris Thibodeaux Attending Provider Dr. Damaris Thibodeaux Other Provider Dr. Terry Arzate Emergency Provider Dr. Navdeep Bourgeois Attending Provider Dr. Margo Tatum Primary Care Provider Dr. Cr Ho Attending Provider Dr. Margo Tatum Referring Provider Dr. Edward Hancock Attending Provider CARMEN Tom Attending Provider Dr. Rell Loera Emergency Provider Dr. Perlita Gómez Admit Provider Dr. Perlita Gómez Other Provider Dr. Emiliano Campoverde Other Provider Dr. Aidan Staples Attending Provider Dr. Aidan Staples Other Provider Dr. Damaris Thibodeaux Attending Provider Dr. Damaris Thibodeaux Other Provider Dr. Terry Arzate Emergency Provider Dr. Navdeep Bourgeois Attending Provider Dr. Navdeep Bourgeois Admit Provider Dr. Navdeep Bourgeois Other Provider Dr. Berenice Short Other Provider Dr. Jamie Manrique Attending Provider Dr. Jamie Manrique Other Provider [phone] Truman GEE, Jianming Primary Care Provider Dr. Margo Tatum DO Primary Care Provider Lyndsey MASON, Dr. Rivera Attending Provider Lyndsey MASON, Dr. Rivera Emergency Provider Vic GEE, Dr. Hankins Attending Provider Rc MASON, Dr. Aragon Referring Provider Negro PALS SPECIALIST-C, Mike Attending Provider Negro PALS SPECIALIST-C, Mike Referring Provider Harper GEE, Carlos Referring Provider Harper GEE, Carlos Emergency Provider Ivette GEE, Dr. Francine Manjarrez Admit Provider Ivette GEE, Dr. Francine Manjarrez Attending Provider Ivette GEE, Dr. Francine Manjarrez Other Provider Dr. Damaris Thibodeaux DO Attending Provider Dr. Jamie Manrique DO Other Provider [phone] Dr. Jamie Manrique DO Attending Provider Dr. Damaris Thibodeaux DO Other Provider Carlos Saleem MD Referring Provider Dr. Darline Solano MD Attending Provider Dr. Darline Solano MD Referring Provider Dr. Margo Tatum DO Primary Care Provider Negro PALS SPECIALIST-C, Mike Attending Provider Vic GEE, Dr. Hankins Attending Provider Dr. Margo Tatum DO Referring Provider Dr. Arjun Ortez DO Emergency Provider Dr. Margo Tatum DO Primary Care Provider Negro PALS SPECIALIST-C, Mike Attending Provider Negro PALS SPECIALIST-CMike Referring Provider Dr. Arjun Ortez DO Attending Provider [phone] Malys, Margo Primary Care Unavailable Basali, Ayman Referring Unavailable Basali, Ayman Attending Unavailable Arjun Ortez Attending Unavailable Malys, Margo Primary Care Unavailable Malys, Margo Primary Care Unavailable Vic, Malaga Attending Unavailable Damaris Thibodeaux Attending Unavailable Koram, Francine Josseline Admitting Unavailable Koram, Francine Josseline Consulting Unavailable Reodica, Carlos Referring Unavailable Malys, Margo Primary Care Unavailable Jamie Manrique Consulting Unavailable Malys, Margo Primary Care Unavailable Miguel Solorio Attending Unavailable NegroMike Attending Unavailable Malys, Margo Primary Care Unavailable Malys, Margo Referring Unavailable Malys, Margo Primary Care Unavailable Vic, Malaga Attending Unavailable Malys, Margo Primary Care Unavailable Vic, Malaga Attending Unavailable Malys, Margo Primary Care Unavailable Vic, Cr Attending Unavailable Carlos Eduardo, Damaris Admitting Unavailable Malys, Margo Primary Care Unavailable Aidan Staples Attending Unavailable Dorian, Estrellita Consulting Unavailable Carlos Eduardo, Damaris Consulting Unavailable Tereletsky, Aidan Consulting Unavailable Mike Tom Attending Unavailable Vamsi Tomn Referring Unavailable Malys, Margo Primary Care Unavailable Bryan Mitchell NP Attending Unavailable Malys, Margo Referring Unavailable Malys, Margo Primary Care Unavailable Malys, Margo Primary Care Unavailable Vic, Malaga Attending Unavailable Malys, Margo Primary Care Unavailable Bethany Jacobson Attending Unavailable Malys, Margo Referring Unavailable Edward Hancock Referring Unavailable Edward Hancock Attending Unavailable Malys, Margo Primary Care Unavailable Carlos Eduardo, Damaris Admitting Unavailable Dorian, Estrellita Consulting Unavailable Malys, Margo Primary Care Unavailable Aidan Staples Attending Unavailable Carlos Eduardo, Damaris Consulting Unavailable Malys, Margo Primary Care Unavailable Xiomara, Ayman Attending Unavailable Basali, Ayman Referring Unavailable Mike Tom Attending Unavailable Malys, Margo Primary Care Unavailable Malys, Margo Referring Unavailable Koram, Francine Josseline Admitting Unavailable Koram, Francine Josseline Attending Unavailable Reodica, Carlos Referring Unavailable Malys, Margo Primary Care Unavailable Koram, Francine Josseline Consulting Unavailable Malys, Margo Primary Care Unavailable Vic, Malaga Attending Unavailable Carlos Eduardo, Damaris Attending Unavailable Jamie Manrique Attending Unavailable Koram, Francine Josseline Consulting Unavailable Koram, Francine Josseline Admitting Unavailable Reodica, Carlos Referring Unavailable Malys, Margo Primary Care Unavailable Jamie Manrique Consulting Unavailable Damaris Thibodeaux Attending Unavailable Damaris Thibodeaux Consulting Unavailable Dorian, Estrellita Attending Unavailable Malys, Margo Primary Care Unavailable Vic, Cr Attending Unavailable Negro, Mike Attending Unavailable Malys, Margo Primary Care Unavailable Malys, Margo Referring Unavailable Negro, Mike Attending Unavailable Malys, Margo Primary Care Unavailable Malys, Margo Referring Unavailable Negro, Mike Attending Unavailable Malys, Margo Referring Unavailable Malys, Margo Primary Care Unavailable [facility] Bryan COFFMAN Attending Unavailable Malys, Margo Primary Care Unavailable Malys, Margo Referring Unavailable Malys, Margo Primary Care Unavailable Joslyn Ly Attending Unavailabl e Negro, Mike Attending Unavailable Negro, Mike Referring Unavailable Malys, Margo Primary Care Unavailable Truman GEE, [facility] Primary Care Provider Rc MASON, Dr. Aragon Primary Care Provider Vic GEE, Dr. Hankins Attending Provider Harper GEE, Carlos Emergency Provider Ivette GEE, Dr. Francine Manjarrez Admit Provider Ivette GEE, Dr. Francine Manjarrez Attending Provider Ivette GEE, Dr. Francine Manjarrez Other Provider [phone] Carlos Saleem MD Referring Provider Dr. Damaris Thibodeaux DO Attending Provider Dr. Jamie Manrique DO Other Provider Dr. Jamie Manrique DO Attending Provider Dr. Damaris Thibodeaux DO Other Provider Rc MASON, Dr. Aragon Referring Provider [phone] Negro PALS SPECIALIST-CMike Attending Provider Negro PALS SPECIALIST-C, Mike Referring Provider Dr. Darline Solano MD Attending Provider Dr. Darline Solano MD Referring Provider Dr. Arjun Ortez DO Attending Provider Dr. Arjun Ortez DO Emergency Provider Dr. Allen Meraz DO Emergency Provider Quincy GEE, Dr. Moise Admit Provider Quincy GEE, Dr. Moise Attending Provider Allergies Allergy Classification Reported Allergen(s) Allergy Type Date of Onset Reaction(s) Facility (20 sources) Amoxicillin; Translations: [amoxicillin trihydrate] Drug Allergy 07-17-2021 [facility] (20 sources) potassium clavulanate; Translations: [potassium clavulanate] Propensity to adverse reactions 07-17-2021 [facility] (2 sources) Amoxicillin / Clavulanate Drug Allergy 08-18-2022 [facility] Medications Current Medications Medication Drug Class(es) Dates Sig (Normalized) Sig (Original) acetaminophen 325 mg / HYDROcodone bitartrate 5 mg oral tablet (20 sources) Opioid Agonist Start: 08-06-2022 Hydrocodone-Acetam inophen 5-325 mg tablet Active 1 {tbl} PO Q8H as needed for pain August 07, 2022 12:11am Start: 08-06-2022 take 1 tablet by gunner th every eight hours Hydrocodone-Acetaminophen Active 1 TABLE T PO Q8H August 07, 2022 12:11am Start: 08-06-2022 take 1 tablet by gunner th once daily Hydrocodone-Acetaminophen Active 1 TABLE T PO DAILY August 07, 2022 12:11am Start: 05-08-2022 End: 08-06-2022 Start: 05-08-2022 End: 08-06-2022 Hydrocodone-Acetaminophen 5- 325 mg tablet Discontinued 1 {tbl} PO EVERY 6 HOURS as needed for pain 7 May 08, 2022 August 07, 2022 12:11am Start: 05-08-2022 End: 08-06-2022 Start: 05-08-2022 End: 08-06-2022 take 1 tablet by mouth every six hours Hydrocodone-Acetaminophen Discontinued 1 TABLET PO EVERY 6 HOURS 7 May 08, 2022 August 07, 2022 12:11am Start: 01-18-2021 End: 03-31-2021 Start: 01-18-2021 End: 03-31-2021 Hydrocodone-Acetaminophen 1 TABLET tablet Discontinued 1 {tbl} PO EVERY 6 HOURS NEEDED as needed for Pain 10 January 18, 2021 March 31, 2021 2:52pm Start: 01-18-2021 End: 03-31-2021 Start: 01-18-2021 End: 03-31-2021 take 1 tablet by mouth every six hours as needed Hydrocodone-Acetaminophen Discontinued 1 TABLET PO EVERY 6 HOURS NEEDED 10 January 18, 2021 March 31, 2021 2:52pm Start: 03-17-2018 End: 03-19-2018 Start: 03-17-2018 End: 03-19-2018 Hydrocodone-Acetaminophen 1 TABLET tablet Discontinued 1 {tbl} PO EVERY 4 HOURS NEEDED as needed for Pain 10 March 17, 2018 12:00am March 18, 2018 12:00am March 19, 2018 12:09am Start: 03-17-2018 End: 03-19-2018 Start: 03-17-2018 End: 03-19-2018 take 1 tablet by mouth every four hours as needed Hydrocodone-Acetaminophen Discontinued 1 TABLET PO EVERY 4 HOURS NEEDED 03 07March 17, 2018 12:00am March 19, 2018 12:09am benzocaine 15 mg / menthol 3.6 mg oral lozenge (5 sources) Standardized Chemical Allergen Start: 09-14-2021 Benzocaine-Menthol (Cepacol Sore Throat (Azam-Men)) 15-3.6 mg Lozenge Active 1 LOZENGE MUCOUS MEM EVERY 2 HOURS NEEDED 0 September 14, 2021 11:50am Blood-Glucose Meter,Continuous ([employer] G7 Metal Finisher) misc (5 sources) Start: 10-10-2023 Blood-Glucose Meter,Continuous ([employer] G7 Metal Finisher) misc Active 0 .Route October 10, 2023 12:00am As directed Blood-Glucose Sensor ([employer]excom G7 Sensor) device (20 sources) Start: 09-17-2024 Blood-Glucose Sensor ([employer]ex[employer] G7 Sensor) device Active 0 .Route 3 September 17, 2024 9:33am 1 sensor q 14 days Start: 04-04-2024 End: 09-17-2024 Blood-Glucose Sensor (Dexcom G7 Sensor) device Discontinued 0 .Route 3 April 04, 2024 10:16am September 17, 2024 9:33am 1 sensor q 14 days Start: 04-04-2024 Blood-Glucose Sensor (Dexcom G7 Sensor) device Active 0 .Route 3 April 04, 2024 10:16am 1 sensor q 14 days Start: 10-10-2023 End: 04-04-2024 Blood-Glucose Sensor (Dexcom G7 Sensor) device Discontinued 0 .Route 3 October 10, 2023 12:00am April 04, 2024 10:17am As directed Blood-Glucose,Metal Finisher,Cont ([employer] G7 Metal Finisher) misc (3 sources) Start: 10-10-2023 Blood-Glucose,Metal Finisher,Cont ([employer] G7 Metal Finisher) misc Active 0 .Route 1 October 10, 2023 12:00am As directed carvedilol 25 mg oral tablet (20 sources) alpha-Ad renergic Timothy, beta-Adr energic Timothy Start: 09-01-2022 End: 12-13-2023 take 6.25 mg by mouth twice daily at mealtime Carvedilol 25 mg tablet Discontinued 6.25 mg PO TWICE A DAY September 10, 2023 10:50am December 13, 2023 3:19pm must administer with a meal/food Start: 03-11-2022 End: 08-06-2022 Start: 03-11-2022 End: 12-29-2023 Start: 10-15-2021 End: 03-11-2022 Start: 06-29-2021 End: 10-15-2021 Start: 03-31-2021 End: 06-29-2021 Start: 03-31-2021 End: 06-29-2021 take 6.25 mg by mouth twice daily Carvedilol 12.5 mg tablet Discontinued 6.25 mg PO TWICE A DAY March 31, 2021 3:10pm June 29, 2021 10:43am Start: 03-31-2021 End: 06-29-2021 take 6.25 mg by mouth twice daily Carvedilol Discontinued 6.25 MG PO TWICE A DAY 120 March 31, 2021 3:10pm June 29, 2021 10:43am Start: 09-16-2020 End: 03-31-2021 Start: 06-13-2020 End: 09-16-2020 cholecalciferol 0.05 mg oral capsule (20 sources) Vitamin D Start: 10-14-2022 End: 03-08-2023 Start: 10-14-2022 End: 03-08-2023 take 1 capsule by mouth once daily Cholecalciferol (Vitamin D3) 50 mcg (2,000 unit) capsule Discontinued 50 ug PO DAILY October 14, 2022 12:00am March 08, 2023 10:08am diphenhydrAMINE hydrochlorid e 25 mg oral tablet (20 sources) Histamine-1 Receptor Antagonist Start: 08-06-2022 take 1 tablet by gunner th every six hours as needed diphenhydrAMINE 25 MG tablet Take 1 tabl et by mouth every 6 hours as needed. 0 Active docusate sodium 100 mg oral capsule (2 sources) Start: 12-17-2011 take 1 capsule by mouth twice daily docusate 100 MG PO CAPS take 1 Cap by mouth 2 times daily. 60 Cap 0 12/17/2011 Active Dulaglutide (20 sources) GLP-1 Receptor Agonist Start: 11-07-2024 Start: 11-07-2024 Dulaglutide (T rulicity) 4.5 mg/0.5 mL pen injector Active 4.5 mg SC EVERY WEEK 2 November 07, 2024 12:00am Start: 09-12-2024 End: 11-07-2024 Start: 09-12-2024 End: 11-07-2024 Dulaglutide (Trulicity) 3 mg /0.5 mL pen injector Discontinued 3 mg SC EVERY WEEK 2 September 12, 2024 12:00am November 07, 2024 2:57pm Start: 09-12-2024 Dulaglutide (T rulicity) 3 mg/0.5 mL pen injector Active 3 mg SC EVERY WEEK 2 September 12, 2024 12:00am Start: 09-09-2024 End: 09-12-2024 Dulaglutide (Trulicity) 1.5 mg/0.5 mL pen injector Discontinued 1.5 mg SC .monday September 09, 2024 12:00am September 12, 2024 3:11pm Start: 06-13-2024 End: 09-12-2024 Start: 06-13-2024 End: 09-09-2024 Dulaglutide (Trulicity) 1.5 mg/0.5 mL pen injector Discontinued 1.5 mg SC EVERY WEEK 2 June 13, 2024 1:00am September 09, 2024 9:28pm Start: 04-04-2024 End: 06-13-2024 Start: 04-04-2024 End: 06-13-2024 Dulaglutide (Trulicity) 0.75 mg/0.5 mL pen injector Discontinued 0.75 mg SC EVERY WEEK 2 April 04, 2024 12:00am June 13, 2024 4:30pm Start: 08-11-2023 End: 04-04-2024 Start: 08-11-2023 End: 04-04-2024 Dulaglutide (Trulicity) 1.5 mg/0.5 mL pen injector Discontinued 1.5 mg SC EVERY WEEK 2 August 11, 2023 1:00am April 04, 2024 10:13am Start: 08-11-2023 Start: 05-11-2023 End: 08-11-2023 Start: 05-11-2023 End: 08-11-2023 Dulaglutide (Trulicity) 0.75 mg/0.5 mL pen injector Discontinued 0.75 mg SC EVERY WEEK 2 May 11, 2023 1:00am August 11, 2023 1:10pm Start: 05-11-2023 End: 08-11-2023 furosemide 40 mg oral tablet (20 sources) Loop Diuretic Start: 09-11-2024 Start: 09-10-2023 End: 09-11-2024 Start: 06-29-2021 End: 09-10-2023 take 1 tablet by mouth twice daily Furosemide 40 mg Tablet Discontinued 40 mg PO TWICE DAILY 60 September 14, 2021 12:00am September 16, 2021 10:53pm Start: 06-13-2020 End: 09-10-2023 gabapentin 100 mg oral capsule (1 source) Anti-epileptic Agent Start: 09-20-2022 End: 09-30-2022 take 1 capsule by mouth three times daily Gabapentin 100 MG capsule Take 1 capsule by mouth 3 times daily for 10 days. 30 capsule 0 09/20/2022 09/30/2022 Active Insulin Glargine (Lantus Solostar U-100 Insulin) 100 unit/mL (3 mL) insulin pen (1 source) Start: 11-09-2021 Insulin Glargi ne (Lantus Solostar U-100 Insulin) 100 unit/mL (3 mL) insulin pen Active 40 UNIT SC DAILY November 09, 2021 8:56am Insulin Glargine-Yfgn 100 unit/mL (3 mL) Insulin Pen (7 sources) Start: 09-11-2024 Insulin Glargine-Yfgn 100 unit/mL (3 mL) Insulin Pen Active 50 U SC DAILY 0 September 11, 2024 12:00am 3 ml insulin lispro 100 unt/ml pen injector (20 sources) Insulin Analog Start: 10-15-2024 Insulin Lispro (Humalog Kwikpen Insulin) 100 unit/mL Insulin Pen Active 30 U SC 3 TIMES DAILY WITH MEALS October 15, 2024 12:00am Start: 09-11-2024 End: 10-15-2024 Insulin Lispro (Humalog Kwik pen Insulin) 100 unit/mL Insulin Pen Discontinued 25 U SC THREE TIMES DAILY BEFORE MEALS 0 September 11, 2024 12:00am October 15, 2024 1:31pm Start: 06-14-2024 End: 09-11-2024 Insulin Lispro (Humalog Kwik pen Insulin) 100 unit/mL insulin pen Discontinued 20 U SC THREE TIMES A DAY June 14, 2024 1:00am September 11, 2024 4:02pm Start: 04-04-2024 End: 06-13-2024 Insulin Lispro (Humalog Kwik pen Insulin) 100 unit/mL insulin pen Discontinued 25 U SC 3 TIMES DAILY WITH MEALS 67.5 April 04, 2024 10:15am June 13, 2024 4:38pm Start: 10-20-2022 End: 04-04-2024 Insulin Lispro (Humalog Kwik pen Insulin) 100 unit/mL insulin pen Discontinued 14 U SC 3 TIMES DAILY WITH MEALS October 20, 2022 4:15pm April 04, 2024 10:17am Start: 10-20-2022 Insulin Lispro (Humalog Kwikpen Insulin) 100 unit/mL insulin pen Active 12 UNIT SC 3 TIMES DAILY WITH MEALS October 20, 2022 4:15pm Start: 06-09-2022 End: 10-15-2024 Start: 06-09-2022 End: 10-20-2022 Insulin Lispro (Humalog Kwik pen Insulin) 100 unit/mL insulin pen Discontinued 10 U SC 3 TIMES DAILY WITH MEALS August 07, 2022 12:11am October 20, 2022 4:16pm Start: 06-09-2022 End: 10-20-2022 isosorbide dinitrate 30 mg oral tablet (1 source) Nitrate Vasodilator take 1 tablet by mouth three times daily isosorbide dinitrate 30 MG tablet Take 1 tablet by mouth 3 times daily. 0 Active lactulose 667 mg/ml oral solution (2 sources) Osmotic Laxative Start: 01-10-2012 take 40 g by mouth once daily as needed lactulose 10 GM/15ML PO SOLN take 45 mL by mouth 3 times daily as needed. Max of 40gm/day 30 mL 0 01/10/2012 Active melatonin 10 mg oral capsule (20 sources) Start: 12-13-2023 Start: 12-13-2023 take 1 capsule by mo [facility] at bedtime as needed Melatonin 10 mg capsule Active 10 mg PO BEDTIME as needed for insomnia December 13, 2023 12:00am Start: 02-24-2022 End: 09-06-2023 Start: 02-24-2022 End: 09-06-2023 take 1 tablet by mouth at bedtime as needed Melatonin 10 mg tablet Discontinued 10 mg PO BEDTIME as needed for Insomnia February 24, 2022 12:00am September 06, 2023 2:50pm Start: 02-24-2022 End: 09-06-2023 Melatonin 10 MG capsule Take by mouth at bedtime as needed. 0 Active methylPREDNISolone 4 mg oral tablet (1 source) Corticosteroid Start: 09-20-2022 methylPREDNIsolone 4 MG Tab Therapy Pack tablet Take 6 tablets by mouth on day 1, 5 tabs on day 2, 4 tabs on day 3, 3 tabs on day 4, 2 tabs on day 5, 1 tab on day 6, then stop. 21 tablet 0 09/20/2022 Active omeprazole 20 mg delayed release oral tablet (20 sources) Proton Pump Inhibitor Start: 06-30-2022 End: 08-06-2022 Start: 11-09-2021 End: 05-18-2022 Start: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 unspecified] Episodic Other injuries and conditions due to external causes (20 sources) Closed injury of head; Translations: [Unspecified injury of head, initial encounter] 10-07-2022 Episodic Other injuries and conditions due to external causes (20 sources) Blunt injury of abdomen; Translations: [Unspecified injury of abdomen, initial encounter] 10-07-2022 Episodic Other injuries and conditions due to external causes (18 sources) Finding with explicit context; Translations: [Personal history of other (healed) physical injury and trauma] 10-18-2022 Episodic Other lower respiratory disease (20 sources) Interstitial pneumonia; 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, unspecified] 03-30-2021 Chronic Other lower respiratory disease (20 sources) Dyspnea; Translations: [Dyspnea, unspecified] 03-30-2021 Episodic Other lower respiratory disease (20 sources) Dyspnea on exertion; Translations: [Apnea, not elsewhere classified] 04-13-2022 Episodic Other lower respiratory disease (4 sources) Shortness of breath; Translations: [Shortness of breath] Onset: 5 08-06-2022 Episodic Other lower respiratory disease (9 sources) History of chronic obstructive airway disease; Translations: [Personal history of other diseases of the respiratory system] 01-27-2024 Episodic Other lower respiratory disease (18 sources) Hypoxia; Translations: [Hypoxemia] 09-09-2024 Episodic Other lower respiratory disease (1 source) Hypoxemia; Translations: [Hypoxemia] Onset: 04-08-202 5 Episodic Other nutritional; endocrine; and metabolic disorders (20 sources) Obesity; Translations: [Obesity, unspecified] 04-05-2022 Chronic Other nutritional; endocrine; and metabolic disorders (20 sources) Obesity, unspecified; Translations: [Obesity, unspecified] Chronic Other nutritional; endocrine; and metabolic disorders (20 sources) H/O: diabetes mellitus; Translations: [Personal history of other endocrine, nutritional and metabolic disease] 09-10-2022 Episodic Other screening for suspected conditions (not mental disorders or infectious disease) (18 sources) D-dimer above reference range; Translations: [Other specified abnormal findings of blood chemistry] 09-09-2024 Episodic Ovarian cyst (20 sources) Cyst of ovary; Translations: [Unspecified ovarian cyst, left side] 08-26-2017 Episodic Pura-; endo-; and myocarditis; cardiomyopathy (except that caused by tuberculosis or sexually transmitted disease) (19 sources) Cardiomyopathy; Translations: [Other cardiomyopathies] Onset: Chronic Phlebitis; thrombophlebitis and thromboembolism (20 sources) Superficial thrombophlebitis; Translations: [Phlebitis and thrombophlebitis of unspecified site] 09-14-2022 Episodic Residual codes; unclassified (20 sources) Sleep apnea; Translations: [Sleep apnea, unspecified] 09-29-2021 Chronic Residual codes; unclassified (3 sources) Sleep apnea, unspecified; Translations: [Unspecified sleep apnea] Chronic Residual codes; unclassified (20 sources) History of laparoscopy; Translations: [Other specified postprocedural states] 03-30-2021 Episodic Residual codes; unclassified (20 sources) H/O Spinal surgery; Translations: [Other specified postprocedural states] 03-30-2021 Episodic Comment on above: x5 Respiratory failure; insufficiency; arrest (adult) (20 sources) Acute respiratory failure; Translations: [Acute respiratory failure, unspecified whether with hypoxia or hypercapnia] Episodic Skin and subcutaneous tissue infections (20 sources) Paronychia; Translations: [Paronychia] Onset: 2 05-16-2022 Episodic Spondylosis; intervertebral disc disorders; other back problems (3 sources) Lumbar discitis; Translations: [Discitis, unspecified, lumbar region] Onset: 2 Chronic Spondylosis; intervertebral disc disorders; other back problems (20 sources) Chronic low back pain; Translations: [Chronic low back pain] Onset: 2 03-30-2021 Episodic Sprains and strains (20 sources) Sprain of foot; Translations: [Unspecified sprain of left foot, initial encounter] 06-30-2022 Episodic Substance-related disorders (1 source) Opioid dependence, uncomplicated; Translations: [Opioid dependence, uncomplicated] Onset: 5 Chronic Superficial injury; contusion (20 sources) Contusion of elbow; Translations: [Contusion of right elbow, initial encounter] 09-28-2021 Episodic Syncope (20 sources) Near syncope; Translations: [Syncope and collapse] Episodic Thyroid disorders (20 sources) Hyperthyroidism; Translations: [Thyrotoxicosis, unspecified without thyrotoxic crisis or storm] Onset: 5 Chronic Comment on above: This is a 52-year-ol d female with a history of thyroid nodularity who previously underwent surgical consultation with left thyroid nodule fine-needle aspiration in May 2022 and now presents for evaluation following updated ultrasound on 05/19/2023. She largely denies new symptoms, but does remark of some new swallowing difficulty. She does report a negative EGD in the last year to year and a half. She denies any prior evaluation with laryngoscopy despite her severe vocal difficulties after a traumatic intubation. I have thus recommended that she consider this additional testing. In patient's most recent ultrasound, radiology noted the presence of 4 dominant nodules with 3 occurring within the left thyroid lobe. Of the 4 nodules, radiology recommended consideration of biopsy for 3 of these nodules. However, patient's right-sided thyroid nodule does not meet ACR criteria given that it is a TI-RADS 2 reading and patient's fourth nodule appears to be stable down to 1 mm from the prior study. This is also the nodule that was previously biopsied in 2021 with a benign cytopathologic result. Thus I have recommended pursuing biopsy of only patient's second nodule located in the left superior pole. This recommendation was passed on the patient and we ultimately conducted biopsy of this nodule after confirming that she had in fact held her Plavix and Eliquis appropriately for the procedure. Those procedure details are given in the procedures section of this note. Will plan to follow-up with patient via telephone once known. In the interim, a referral will be made to ENT for consideration of laryngoscopy. Unclassified (7 sources) Please call for a basic metabolic profile to be done within the next 5 to 7 days in addition to their follow-up appointment Unclassified (7 sources) Please call and get an appointment to be seen by cardiology within the next 2 to 4 weeks Urinary tract infections (20 sources) Urinary tract infectious disease; Translations: [Urinary tract infection, site not specified] 11-14-2021 Episodic Past or Other Problems Problem Classification Problem Date Documented Da te Episodic/Chronic Coronary atherosclerosis and other heart disease (20 sources) Presence of coronary angioplasty implant and graft; Translations: [Percutaneous transluminal coronary angioplasty status] Onset: 05-19-2021 Episodic Other lower respiratory disease (13 sources) Other forms of dyspnea; Translations: [Other respiratory abnormalities] Onset: 12-21-2023 Episodic Results Test Name Value Interpretation Reference Range Facility Absolute lymphocyte countOrd ered By: Allen Meraz on 11-30-2024 Lymphocytes Auto (Unsp spec) [#/Vol] 2.22 10*3/uL 0.83-4.51 [facility] Anion gap in Serum or Plasma Ordered By: Allen Meraz on 11-30-2024 Anion gap [Moles/Vol] 11 mmol/L 5-15 [facility] Automated lymphocyte count a s percentage of total leukocytesOrdered By: Allen Meraz on 11-30-2024 Lymphocytes/100 WBC Auto (Unsp spec) 30.4 % 19-41 [facility] BUN/creatinine ratioOrdered By: Allen Meraz on 11-30-2024 Urea nitrogen/Creatinine [Mass ratio] 26.3 mg/mg High 10-20 [facility] Basophil percentageOrdered B y: Rem Ungmaryellen on 11-30-2024 Basophils/100 WBC (Bld) 0.3 % 0-1 [facility] Carbon dioxide, total [Moles /volume] in Central venous bloodOrdered By: Allen Meraz on 11-30-2024 CO2 [Moles/Vol] 20.1 mmol/L Low 21.0-32.0 [facility] Chloride assayOrdered By: Erica Meraz on 11-30-2024 Chloride [Moles/Vol] 105 mmol/L 98-108 [facility] Eosinophil percentageOrdered By: Allen Meraz on 11-30-2024 Eosinophils/100 WBC (Bld) 1.9 % 0-5 [facility] Erythrocyte distribution wid th ratioOrdered By: Allen Meraz on 11-30-2024 Erythrocyte distribution width (RBC) [Ratio] 14.0 % 11.6-14.6 [facility] Erythrocyte distribution wid th standard deviationOrdered By: Allen Meraz on 11-30-2024 Erythrocyte distribution width (RBC) [Ratio] 47.7 fl High 35.1-43.9 [facility] Glomerular filtration rate ( GFR) estimation/1.73 sq m using serum, plasma, or whole bOrdered By: Allen Meraz on 11-30-2024 GFR/1.73 sq M.predicted among non-blacks MDRD (S/P/Bld) [Vol rate/Area] 81 mL/min/{1.73_m2} >60 [facility] Hematocrit Auto (Bld) [Volum e fraction]Ordered By: Allen Meraz on 11-30-2024 Hematocrit (Bld) [Volume fraction] 37.0 % 37-47 [facility] Hemoglobin measurementOrdere d By: Jannet tK on 11-30-2024 Hemoglobin (Bld) [Mass/Vol] 12.2 g/dL 12.0-15.0 [facility] Immature granulocytes/100 WB C Auto (Bld)Ordered By: Allen Meraz on 11-30-2024 Immature granulocytes/100 WBC (Bld) 0.300 % 0.0-0.9 [facility] Influenza virus A and B and SARS-CoV-2 (COVID-19) and Respiratory syncytial virus RNAOrdered By: Allen Meraz on 11-30-2024 SARS-CoV-2 (COVID-19) RNA ROSALIA+probe Ql (Unsp spec) [facility] MCV (mean corpuscular volume ) determinationOrdered By: Allen Meraz on 11-30-2024 MCV (RBC) [Entitic vol] 93.2 fL 81-99 [facility] Mean corpuscular hemoglobin (MCH) determinationOrdered By: Burbank Kt on 11-30-2024 MCH (RBC) [Entitic mass] 30.7 pg 27.0-32.0 [facility] Monocyte percentageOrdered B y: Allen Meraz on 11-30-2024 Monocytes/100 WBC (Bld) 5.2 % 0-10 [facility] Natriuretic peptide.B prohor tiffanie N-Terminal [Mass/volume] in Serum or PlasmaOrdered By: Allen Meraz on 11-30-2024 Natriuretic peptide.B prohormone N-Terminal [Mass/Vol] 1366 pg/mL High <900 [facility] Neutrophil percentageOrdered By: Allen Meraz on 11-30-2024 Neutrophils/100 WBC (Bld) 61.9 % 47-70 [facility] Platelet countOrdered By: Erica Meraz on 11-30-2024 Platelets (Bld) [#/Vol] 184 10*3/uL 150-450 [facility] Potassium measurement (mass/ volume)Ordered By: Allen Meraz on 11-30-2024 Potassium (Unsp spec) [Mass/Vol] 4.4 mmol/L 3.3-5.1 [facility] RBC Auto (Bld) [#/Vol]Ordere d By: Allen Meraz on 11-30-2024 RBC (Bld) [#/Vol] 3.97 10*6/uL Low 4.2-5.4 [facility] Serum creatinine measurement (mass/volume)Ordered By: Allen Meraz on 11-30-2024 Creatinine [Mass/Vol] 0.85 mg/dL 0.70-1.20 [facility] Serum glucose measurement (m ass/volume)Ordered By: Allen Meraz on 11-30-2024 Glucose [Mass/Vol] 300 mg/dL High 70-[address] [facility] Serum or plasma calcium oliver urement (mass/volume)Ordered By: Allen Meraz on 11-30-2024 Calcium [Mass/Vol] 8.4 mg/dL 7.6-11.[address] [facility] Serum or plasma urea nitroge n measurement (mass/volume)Ordered By: Allen Meraz on 11-30-2024 Urea nitrogen [Mass/Vol] 23 mg/dL High 4-19 [facility] Sodium levelOrdered By: Aly Meraz on 11-30-2024 Sodium [Moles/Vol] 137 mmol/L 133-[address] [facility] Troponin T.cardiac [Mass/vol ume] in Serum or Plasma by High sensitivity methodOrdered By: Allen Meraz on 11-30-2024 Troponin T.cardiac High sensitivity method [Mass/Vol] 7 ng/L <14 [facility] White blood cell (WBC) count Ordered By: Allen Meraz on 11-30-2024 WBC (Bld) [#/Vol] 7.3 10*3/uL 4.4-11.[address] [facility] Endocrinology Visit Reporton 11-07-2024 Endocrinology Visit Report Normal [facility] 12 Lead EKGon 10-15-2024 12 Lead EKG Normal [facility] Absolute lymphocyte countOrd ered By: ED PROVIDER on 10-15-2024 Lymphocytes Auto (Unsp spec) [#/Vol] 1.70 10*3/uL 0.83-4.51 [facility] Absolute neutrophil countOrd ered By: ED PROVIDER on 10-15-2024 Neutrophils (Bld) [#/Vol] 4.2 10*3/uL 2.0-7.7 [facility] Anion gap in Serum or Plasma Ordered By: ED PROVIDER on 10-15-2024 Anion gap [Moles/Vol] 10 mmol/L 5-15 [facility] Automated blood erythrocyte countOrdered By: ED PROVIDER on 10-15-2024 RBC (Bld) [#/Vol] 4.07 10*6/uL Low 4.2-5.4 [facility] Comment on above: Performed By: #### L 501.4021, L100.0100, L500.2500 ####[facility] [address] [place], [place], [id number] Automated blood hematocrit ( percentage)Ordered By: ED PROVIDER on 10-15-2024 Hematocrit (Bld) [Volume fraction] 37.8 % 37-47 [facility] Comment on above: Performed By: #### L 501.4021, L100.0100, L500.2500 ####[facility] [address] [place], [place], [id number] Automated lymphocyte count a s percentage of total leukocytesOrdered By: ED PROVIDER on 10-15-2024 Lymphocytes/100 WBC Auto (Unsp spec) 26.7 % - [facility] BUN/creatinine ratioOrdered By: ED PROVIDER on 10-15-2024 Urea nitrogen/Creatinine [Mass ratio] 17.9 mg/mg 10- [facility] Basic Metabolic Profile (BMP )on 10-15-2024 BUN/CRE 17.9 RATIO Normal - [facility] Comment on above: Performed By: #### L 501.4021, L100.0100, L500.2500 ####[facility] [address] [place], [address] Calcium [Mass/Vol] 9.3 mg/dL Normal 7.6-11.[address] [facility] Comment on above: Performed By: #### L 501.4021, L100.0100, L500.2500 ####[facility] [address] [place], [address] Chloride [Moles/Vol] 106 mmol/L Normal 98-108 [facility] Comment on above: Performed By: #### L 501.4021, L100.0100, L500.2500 ####[facility] [address] [place], [address] CO2 [Moles/Vol] 22.0 mmol/L Normal 21.0-32.0 [facility] Comment on above: Performed By: #### L 501.4021, L100.0100, L500.2500 ####[facility] [address] [place], [address] Creatinine [Mass/Vol] 1.35 mg/dL High 0.70-1.20 [facility] Comment on above: Performed By: #### L 501.4021, L100.0100, L500.2500 ####[facility] [address] [place], [address] ECRCL 53.30 ml/min Normal 50-250 [facility] Comment on above: Performed By: #### L 501.4021, L100.0100, L500.2500 ####[facility] [address] [place], [address] GAP 10 Normal 5-15 [facility] Comment on above: Performed By: #### L 501.4021, L100.0100, L500.2500 ####[facility] [address] [place], [address] GFR/1.73 sq M.predicted among non-blacks MDRD (S/P/Bld) [Vol rate/Area] 47 mL/min/{1.73_m2} Low >60 [facility] Comment on above: Result Comment: mL/m in/1.73m2 CKD-EPI Creatinine Equation (2020) Performed By: #### L 501.4021, L100.0100, L500.2500 ####[facility] [address] [place], [address] Glucose [Mass/Vol] 203 mg/dL High 70-[address] [facility] Comment on above: Performed By: #### L 501.4021, L100.0100, L500.2500 ####[facility] [address] [place], [address] Potassium [Moles/Vol] 4.1 mmol/L Normal 3.3-5.1 [facility] Comment on above: Performed By: #### L 501.4021, L100.0100, L500.2500 ####[facility] [address] [place], [address] Sodium [Moles/Vol] 138 mmol/L Normal 133-[address] [facility] Comment on above: Performed By: #### L 501.4021, L100.0100, L500.2500 ####[facility] [address] [place], [address] Urea nitrogen [Mass/Vol] 24 mg/dL High 4-19 [facility] Comment on above: Performed By: #### L 501.4021, L100.0100, L500.2500 ####[facility] [address] [place], [address] Basophil percentageOrdered B y: ED PROVIDER on 10-15-2024 Basophils/100 WBC (Bld) 0.3 % 0-1 [facility] Comment on above: Performed By: #### L 501.4021, L100.0100, L500.2500 ####[facility] [address] [place], [address] CBC W/Diff, Automatedon 10-04 Absolute Lymph 1.70 X10 3/uL Normal 0.83-4.51 [facility] Comment on above: Performed By: #### L 501.4021, L100.0100, L500.2500 ####[facility] [address] [place], [address] Absolute Neut 4.2 X10 3/uL Normal 2.0-7.7 [facility] Comment on above: Performed By: #### L 501.4021, L100.0100, L500.2500 ####[facility] [address] [place], [address] IG% 0.300 Normal 0.0-0.9 [facility] Comment on above: Result Comment: IG% - Immature Granulocytes (promyelocytes, myelocytes andmetamyelocytes) > 1% indicates that a LEFT SHIFT is Present. Performed By: #### L 501.4021, L100.0100, L500.2500 ####[facility] [address] [place], [address] Lymphocytes/100 WBC (Bld) 26.7 % Normal 19-41 [facility] Comment on above: Performed By: #### L 501.4021, L100.0100, L500.2500 ####[facility] [address] [place], [address] Nucleated RBC (Bld) [#/Vol] 0 10*3/uL Normal 0-5 [facility] Comment on above: Performed By: #### L 501.4021, L100.0100, L500.2500 ####[facility] [address] [place], [address] RDW SD 51.8 fl High 35.1-43.9 [facility] Comment on above: Performed By: #### L 501.4021, L100.0100, L500.2500 ####[facility] [address] [place], [address] Carbon dioxide, total [Moles /volume] in Central venous bloodOrdered By: ED PROVIDER on 10-15-2024 CO2 [Moles/Vol] 22.0 mmol/L 21.0-32.0 [facility] Chest 1 View (Portable)on Chest 1 View (Portable) Normal [facility] Chloride assayOrdered By: ED PROVIDER on 10-15-2024 Chloride [Moles/Vol] 106 mmol/L 98-108 [facility] Emergency Department Summary on 10-15-2024 Emergency Department Summary Normal [facility] Eosinophil percentageOrdered By: ED PROVIDER on 10-15-2024 Eosinophils/100 WBC (Bld) 0.6 % 0-5 [facility] Comment on above: Performed By: #### L 501.4021, L100.0100, L500.2500 ####[facility] [address] [place], [address] Erythrocyte distribution wid th ratioOrdered By: ED PROVIDER on 10-15-2024 Erythrocyte distribution width (RBC) [Ratio] 15.1 % High 11.6-14.6 [facility] Comment on above: Performed By: #### L 501.4021, L100.0100, L500.2500 ####[facility] [address] [place], [address] Erythrocyte distribution wid th standard deviationOrdered By: ED PROVIDER on 10-15-2024 Erythrocyte distribution width (RBC) [Ratio] 51.8 fl High 35.1-43.9 [facility] Glomerular filtration rate ( GFR) estimation/1.73 sq m using serum, plasma, or whole bOrdered By: ED PROVIDER on 10-15-2024 GFR/1.73 sq M.predicted among non-blacks MDRD (S/P/Bld) [Vol rate/Area] 47 mL/min/{1.73_m2} Low >60 [facility] Comment on above: mL/min/1.73m2 CKD-EP I Creatinine Equation (2020) Hemoglobin measurementOrdere d By: ED PROVIDER on 10-15-2024 Hemoglobin (Bld) [Mass/Vol] 12.7 g/dL 12.0-15.0 [facility] Comment on above: Performed By: #### L 501.4021, L100.0100, L500.2500 ####[facility] [address] [place], [address] Immature granulocytes/100 WB C Auto (Bld)Ordered By: ED PROVIDER on 10-15-2024 Immature granulocytes/100 WBC (Bld) 0.300 % 0.0-0.9 [facility] Comment on above: IG% - Immature Granu locytes (promyelocytes, myelocytes and metamyelocytes) > 1% indicates that a LEFT SHIFT is Present. L499.0042on 10-15-2024 Trop T High Sen 10 ng/L Normal <=14 [facility] Comment on above: Performed By: #### L 499.0042 ####[facility] [address] [place], [address] L499.0043on 10-15-2024 Trop T High Sen Normal <=14 [facility] Comment on above: Result Comment: Canc elled via OM: Order cancelled - Patient discharged Performed By: #### L 499.0043 ####[facility] [address] [place], [address] L501.4021on 10-15-2024 Trop T High Sen 10 ng/L Normal <=14 [facility] Comment on above: Performed By: #### L 501.4021, L100.0100, L500.2500 ####[facility] [address] [place], [address] MCV (mean corpuscular volume ) determinationOrdered By: ED PROVIDER on 10-15-2024 MCV (RBC) [Entitic vol] 92.9 fL 81-99 [facility] Comment on above: Performed By: #### L 501.4021, L100.0100, L500.2500 ####[facility] [address] [place], [address] Mean corpuscular hemoglobin (MCH) determinationOrdered By: ED PROVIDER on 10-15-2024 MCH (RBC) [Entitic mass] 31.2 pg 27.0-32.0 [facility] Comment on above: Performed By: #### L 501.4021, L100.0100, L500.2500 ####[facility] [address] [place], [address] Mean corpuscular hemoglobin concentration (MCHC) determinationOrdered By: ED PROVIDER on 10-15-2024 MCHC (RBC) [Mass/Vol] 33.6 g/dL Normal 32-36 [facility] Comment on above: Performed By: #### L 501.4021, L100.0100, L500.2500 ####[facility] [address] [place], [address] Mean platelet volume determi nationOrdered By: ED PROVIDER on 10-15-2024 Platelet mean volume (Bld) [Entitic vol] 10.0 fL Normal 6.2-12.0 [facility] Comment on above: Performed By: #### L 501.4021, L100.0100, L500.2500 ####[facility] [address] [place], [address] Monocyte percentageOrdered B y: ED PROVIDER on 10-15-2024 Monocytes/100 WBC (Bld) 6.6 % 0-10 [facility] Comment on above: Performed By: #### L 501.4021, L100.0100, L500.2500 ####[facility] [address] [place], [address] Neutrophil percentageOrdered By: ED PROVIDER on 10-15-2024 Neutrophils/100 WBC (Bld) 65.5 % 47-70 [facility] Comment on above: Performed By: #### L 501.4021, L100.0100, L500.2500 ####[facility] [address] [place], [address] Nucleated red blood cell per centageOrdered By: ED PROVIDER on 10-15-2024 Nucleated RBC/100 WBC (Bld) [Ratio] 0 % 0-5 [facility] Platelet countOrdered By: ED PROVIDER on 10-15-2024 Platelets (Bld) [#/Vol] 175 10*3/uL 150-450 [facility] Comment on above: Performed By: #### L 501.4021, L100.0100, L500.2500 ####[facility] [address] [place], [address] Potassium measurement (mass/ volume)Ordered By: ED PROVIDER on 10-15-2024 Potassium (Unsp spec) [Mass/Vol] 4.1 mmol/L 3.3-5.1 [facility] Serum creatinine measurement (mass/volume)Ordered By: ED PROVIDER on 10-15-2024 Creatinine [Mass/Vol] 1.35 mg/dL High 0.70-1.20 [facility] Serum glucose measurement (m ass/volume)Ordered By: ED PROVIDER on 10-15-2024 Glucose [Mass/Vol] 203 mg/dL High 70-[address] [facility] Serum or plasma calcium oliver urement (mass/volume)Ordered By: ED PROVIDER on 10-15-2024 Calcium [Mass/Vol] 9.3 mg/dL 7.6-11.[address] [facility] Serum or plasma urea nitroge n measurement (mass/volume)Ordered By: ED PROVIDER on 10-15-2024 Urea nitrogen [Mass/Vol] 24 mg/dL High 4-19 [facility] Sodium levelOrdered By: ED P BAMBI on 10-15-2024 Sodium [Moles/Vol] 138 mmol/L 133-[address] [facility] Troponin T.cardiac [Mass/vol ume] in Serum or Plasma by High sensitivity methodOrdered By: Arjun Ortez on 10-15-2024 Troponin T.cardiac High sensitivity method [Mass/Vol] 10 ng/L <14 [facility] Troponin T.cardiac [Mass/vol ume] in Serum or Plasma by High sensitivity methodOrdered By: ED PROVIDER on 10-15-2024 Troponin T.cardiac High sensitivity method [Mass/Vol] 10 ng/L <14 [facility] White blood cell (WBC) count Ordered By: ED PROVIDER on 10-15-2024 WBC (Bld) [#/Vol] 6.4 10*3/uL 4.4-11.[address] [facility] Comment on above: Performed By: #### L 501.4021, L100.0100, L500.2500 ####[facility] [address] [place], [address] L3410.9992on 09-30-2024 [facility] Misc. COMMENT Normal . [facility] Comment on above: Order Comment: [id number] Result Comment: Test Ordered: [id number] B15-Mnyzpl+YS3Hkdjyimzdurq Screen, Urine Negative ng/mL UI Reference Range: Bwfstq=512Bebzmlxekwd test includes Amphetamine and Methamphetamine.Barbiturates Negative ng/mL UI Reference Range: Ahxyjh=539Cexdooaptelbiyc Negative ng/mL UI Reference Range: Pfebex=286Gtsedey (Metab.), Urine Negative ng/mL UI Reference Range: Nlcgul=780Halviog Note: ng/mL UI See Final Results Reference Range: Lqrnmb=992Gplmei test includes Codeine, Morphine, Hydromorphone, Hydrocodone.Opiates Positive [A ] UI Reference Range: Xikqec=343Mufoza test includes Codeine, Morphine, Hydromorphone, Hydrocodone.Codeine Negative UI Reference Range: Pcjtvi=855Uczrywnq Negative UI Reference Range: Xsxdbw=193Kiugyfrtmphkc Positive [A ] UI Reference Range: .Hydromorphone Conf, MS, UR 108 ng/mL UI Reference Range: Srdygj=169Tzylmquvzgu Positive [A ] UI Reference Range: .Hydrocodone Conf, MS, UR 553 ng/mL UI Reference Range: Yxpfzs=8770-Fkxbsooykzbsfj, Urine Negative ng/mL UI Reference Range: Cutoff=10Oxycodone/Oxymorphone, Urine Negative ng/mL UI Reference Range: Rkitql=700Ehvy includes Oxycodone and OxymorphonePCP, Urine Negative ng/mL UI Reference Range: Cutoff=25Methadone Screen, Urine Negative ng/mL UI Reference Range: Ijwite=568Wdzvwmiammzb, Urine Negative ng/mL UI Reference Range: Xzkiuo=969Oujlnmuk, Urine Negative ng/mL UI Reference Range: Cutoff=2.0Test includes Fentanyl and NorfentanylThis test was developed and its performance characteristicsdetermined by [facility]. It has not been cleared orapproved by the Food and Drug Administration.Tramadol Negative ng/mL UI Reference Range: Vpwnoo=852Xxfcysbgydebl, Urine Negative ng/mL UI Reference Range: Cutoff=10Creatinine, Urine 74.4 mg/dL UI Reference Range: 20.0-300.0pH, Urine 5.4 UI Reference Range: 4.5-8.9Performed at: - [facility] [id number] [place], [place] [id number] Director: Rand Jaquez PhD, Phone: [phone] at: [facility] [address] [id number] Director: Vargas Kim PhD, Phone: [phone] Performed By: #### L 3410.9992, L505.5000 ####[facility] [address] [place], [address] Amphetamine detection with 1 000 ng/mL as cutoffOrdered By: Darline Solano on 09-25-2024 Amphetamines Screen method >1000 ng/mL Ql (U) Negative < 200 ng/mL [facility] Amphetamines Screen method > 1000 ng/mL Ql (U)Ordered By: Darline Solano on 09-25-2024 Amphetamines Ql (U) Negative <1000 ng/mL [facility] Urine Barbiturates Screen Negative < 200 ng/mL [facility] Methadone, urineOrdered By: Darline Solano on 09-25-2024 Urine Methadone Screen Negative < 300 ng/mL [facility] No Panel InformationOrdered By: Darline Solano on 09-25-2024 Urine Buprenorphine Qualitative Negative < 200 ng/mL [facility] Urine Oxycodone Screen Negative < 100 ng/mL [facility] Negative < 200 ng/mL [facility] Quantitative urine opiates m easurementOrdered By: Darline Solano on 09-25-2024 Opiates Ql (U) Positive < 300 ng/mL [facility] Comment on above: If confirmation test ing is needed, a separate order will be required to send out testing to the reference laboratory. Screening urine fentanyl satish surementOrdered By: Darline Solano on 09-25-2024 fentaNYL Screen Ql (U) Negative [facility] Urine Drug Screen (VISTA)on 09-25-2024 AMPHETAMINES Negative Normal <1000 ng/mL [facility] Comment on above: Order Comment: MEDTO X Performed By: #### L 3410.9992, L505.5000 ####[facility] [address] [place] [address] BARBITIURATES Negative Normal < 200 ng/mL [facility] Comment on above: Order Comment: MEDTO X Performed By: #### L 3410.9992, L505.5000 ####[facility] [address] [facility] [address] BENZODIAZIPINE Negative Normal < 200 ng/mL [facility] Comment on above: Order Comment: MEDTO X Performed By: #### L 3410.9992, L505.5000 ####[facility] [address] [facility] [address] BUP Ur Drug Scr Negative Normal < 200 ng/mL [facility] Comment on above: Order Comment: MEDTO X Performed By: #### L 3410.9992, L505.5000 ####[facility] [address] [place], [address] COCAINE Negative Normal < 300 ng/mL [facility] Comment on above: Order Comment: MEDTO X Performed By: #### L 3410.9992, L505.5000 ####[facility] [address] [facility] [address] Fentanyl Negative Normal [facility] Comment on above: Order Comment: MEDTO X Performed By: #### L 3410.9992, L505.5000 ####[facility] [address] [facility] [address] METHADONE Negative Normal < 300 ng/mL [facility] Comment on above: Order Comment: MEDTO X Performed By: #### L 3410.9992, L505.5000 ####[facility] [address] [facility] [address] OPIATES Positive Normal < 300 ng/mL [facility] Comment on above: Order Comment: MEDTO X Result Comment: If c onfirmation testing is needed, a separate order will berequired to send out testing to the reference laboratory. Performed By: #### L 3410.9992, L505.5000 ####[facility] [address] [facility] [address] OXYCODONE Negative Normal < 100 ng/mL [facility] Comment on above: Order Comment: MEDTO X Performed By: #### L 3410.9992, L505.5000 ####[facility] [address] [facility] [address] PCP Negative Normal < 25 ng/mL [facility] Comment on above: Order Comment: MEDTO X Performed By: #### L 3410.9992, L505.5000 ####[facility] [address] [facility] [address] THC Negative Normal < 50 ng/mL [facility] Comment on above: Order Comment: MEDTO X Performed By: #### L 3410.9992, L505.5000 ####[facility] [address] [place], [place], [id number] Urine benzodiazepine levelOr dered By: Darline Basali on 09-25-2024 Benzodiazepines Ql (U) Negative < 200 ng/mL [facility] Urine cocaine levelOrdered B y: Ayman Basali on 09-25-2024 Cocaine Ql (U) Negative < 300 ng/mL [facility] Urine fflrr-0-jfzhyfrfpblntp abinol (THC) measurementOrdered By: Darline Basali on 09-25-2024 Cannabinoids Screen Ql (U) Negative < 50 ng/mL [facility] Urine phencyclidine (PCP) de tectionOrdered By: Darline Basali on 09-25-2024 Phencyclidine Ql (U) Negative < 25 ng/mL [facility] fentaNYL Screen Ql (U)Ordere d By: Darline Basali on 09-25-2024 Urine Fentanyl Screen Negative [facility] Thyroidon 09-24-2024 Thyroid Normal [facility] Endocrinology Visit Reporton 09-12-2024 Endocrinology Visit Report Normal [facility] Anion gap in Serum or Plasma Ordered By: Jamie Manrique on 09-11-2024 Anion gap [Moles/Vol] 13 mmol/L 5-15 [facility] BUN/creatinine ratioOrdered By: Jamie Manrique on 09-11-2024 Urea nitrogen/Creatinine [Mass ratio] 39.6 mg/mg High 10-20 [facility] Basic Metabolic Profile (BMP )on 09-11-2024 BUN/CRE 39.6 RATIO High - [facility] Comment on above: Performed By: #### L 500.2500, L100.0500 ####[facility] [address] [place], [place], [id number] Calcium [Mass/Vol] 8.9 mg/dL Normal 7.6-11.[address] [facility] Comment on above: Performed By: #### L 500.2500, L100.0500 ####[facility] [address] [place], [address] Chloride [Moles/Vol] 103 mmol/L Normal 98-108 [facility] Comment on above: Performed By: #### L 500.2500, L100.0500 ####[facility] [address] [place], [address] CO2 [Moles/Vol] 19.3 mmol/L Low 21.0-32.0 [facility] Comment on above: Performed By: #### L 500.2500, L100.0500 ####[facility] [address] [place], [address] Creatinine [Mass/Vol] 0.87 mg/dL Normal 0.70-1.20 [facility] Comment on above: Performed By: #### L 500.2500, L100.0500 ####[facility] [address] [place], [address] ECRCL 83.30 ml/min Normal 50-250 [facility] Comment on above: Performed By: #### L 500.2500, L100.0500 ####[facility] [address] [place], [address] GAP 13 Normal 5-15 [facility] Comment on above: Performed By: #### L 500.2500, L100.0500 ####[facility] [address] [place], [address] GFR/1.73 sq M.predicted among non-blacks MDRD (S/P/Bld) [Vol rate/Area] 80 mL/min/{1.73_m2} Normal >60 [facility] Comment on above: Result Comment: mL/m in/1.73m2 CKD-EPI Creatinine Equation (2020) Performed By: #### L 500.2500, L100.0500 ####[facility] [address] [place], [address] Glucose [Mass/Vol] 344 mg/dL High 70-[address] [facility] Comment on above: Performed By: #### L 500.2500, L100.0500 ####[facility] [address] [place], [address] Potassium [Moles/Vol] 4.3 mmol/L Normal 3.3-5.1 [facility] Comment on above: Result Comment: Hemo lysis present, Results??could be affected.?? Performed By: #### L 500.2500, L100.0500 ####[facility] [address] [place], [address] Sodium [Moles/Vol] 135 mmol/L Normal 133-[address] [facility] Comment on above: Performed By: #### L 500.2500, L100.0500 ####[facility] [address] [place], [address] Urea nitrogen [Mass/Vol] 34 mg/dL High 4-19 [facility] Comment on above: Performed By: #### L 500.2500, L100.0500 ####[facility] [address] [place], [address] Bedside Glucoseon 09-11-2024 FINGERSTICK GLU 455 mg/dL Invalid Interpretation Code 74-106 [facility] Comment on above: Result Comment: HILDA GEMENT OF PATIENT CARE PER NURSING PROTOCOL Performed By: #### L 501.080 ####[facility] [address] [place], [address] FINGERSTICK GLU 343 mg/dL High 74-106 [facility] Comment on above: Result Comment: HILDA GEMENT OF PATIENT CARE PER NURSING PROTOCOL Performed By: #### L 501.080 ####[facility] [address] [place], [address] FINGERSTICK GLU 254 mg/dL High 74-106 [facility] Comment on above: Result Comment: HILDA GEMENT OF PATIENT CARE PER NURSING PROTOCOL Performed By: #### L 501.080 ####[facility] [address] [place], [address] CBC-Complete Blood Cnt No Di ffon 09-11-2024 Erythrocyte distribution width (RBC) [Ratio] 13.0 % Normal 11.6-14.6 [facility] Comment on above: Performed By: #### L 500.2500, L100.0500 ####[facility] [address] [place], [address] Hematocrit (Bld) [Volume fraction] 39.8 % Normal 37-47 [facility] Comment on above: Performed By: #### L 500.2500, L100.0500 ####[facility] [address] [place], [address] Hemoglobin (Bld) [Mass/Vol] 13.5 g/dL Normal 12.0-15.0 [facility] Comment on above: Performed By: #### L 500.2500, L100.0500 ####[facility] [address] [place], [address] MCH (RBC) [Entitic mass] 30.3 pg Normal 27.0-32.0 [facility] Comment on above: Performed By: #### L 500.2500, L100.0500 ####[facility] [address] [place], [address] MCHC (RBC) [Mass/Vol] 33.9 g/dL Normal 32-36 [facility] Comment on above: Performed By: #### L 500.2500, L100.0500 ####[facility] [address] [place], [address] MCV (RBC) [Entitic vol] 89.4 fL Normal 81-99 [facility] Comment on above: Performed By: #### L 500.2500, L100.0500 ####[facility] [address] [place], [address] Platelet mean volume (Bld) [Entitic vol] 10.7 fL Normal 6.2-12.0 [facility] Comment on above: Performed By: #### L 500.2500, L100.0500 ####[facility] [address] [place], [address] Platelets (Bld) [#/Vol] 205 10*3/uL Normal 150-450 [facility] Comment on above: Performed By: #### L 500.2500, L100.0500 ####[facility] [address] [place], [address] RBC (Bld) [#/Vol] 4.45 10*6/uL Normal 4.2-5.4 [facility] Comment on above: Performed By: #### L 500.2500, L100.0500 ####[facility] [address] [place], [address] RDW SD 42.7 fl Normal 35.1-43.9 [facility] Comment on above: Performed By: #### L 500.2500, L100.0500 ####[facility] [address] [place], [address] WBC (Bld) [#/Vol] 9.1 10*3/uL Normal 4.4-11.[address] [facility] Comment on above: Performed By: #### L 500.2500, L100.0500 ####[facility] [address] [place], [address] Carbon dioxide, total [Moles /volume] in Central venous bloodOrdered By: Jamie Manirque on 09-11-2024 CO2 [Moles/Vol] 19.3 mmol/L Low 21.0-32.0 [facility] Chloride assayOrdered By: Adam Manrique on 09-11-2024 Chloride [Moles/Vol] 103 mmol/L 98-108 [facility] Erythrocyte distribution wid th (RBC) [Ratio]Ordered By: Jamie Manrique on 09-11-2024 Erythrocyte distribution width (RBC) [Entitic vol] 42.7 fL 35.1-43.9 [facility] Erythrocyte distribution wid th ratioOrdered By: Jamie Manrique on 09-11-2024 Erythrocyte distribution width (RBC) [Ratio] 13.0 % 11.6-14.6 [facility] Erythrocyte distribution wid th standard deviationOrdered By: Jamie Manrique on 09-11-2024 Erythrocyte distribution width (RBC) [Ratio] 42.7 fl 35.1-43.9 [facility] Estimation of creatinine kenzie aranceOrdered By: Jamie Manrique on 09-11-2024 Estimated Creatinine Clearance Calc 83.30 ml/min 50-250 [facility] GFR/1.73 sq M.predicted aleksandr g non-blacks MDRD (S/P/Bld) [Vol rate/Area]Ordered By: Jamie Manrique on 09-11-2024 Estimated GFR (MDRD) Non-Af Amer 80 >60 [facility] Comment on above: mL/min/1.73m2 CKD-EP I Creatinine Equation (2020) Glomerular filtration rate ( GFR) estimation/1.73 sq m using serum, plasma, or whole bOrdered By: Jamie Manrique on 09-11-2024 GFR/1.73 sq M.predicted among non-blacks MDRD (S/P/Bld) [Vol rate/Area] 80 mL/min/{1.73_m2} >60 [facility] Comment on above: mL/min/1.73m2 CKD-EP I Creatinine Equation (2020) Glucoseon 09-11-2024 Glucose [Mass/Vol] 513 mg/dL Invalid Interpretation Code 70-99 [facility] Comment on above: Result Comment: Crit ical Result(s) Called at 1303: TO NBILICINI by:KCLAPPER??Results read back by same. Performed By: #### L 501.0100 ####[facility] [address] [place], [place], [address] [facility] deOrdered By: Damaris Thibodeaux on 09-11-2024 Bedside Glucose (Misc Panel) 455 mg/dL High 74-106 [facility] Comment on above: MANAGEMENT OF PATIEN T CARE PER NURSING PROTOCOL Glucose [Mass/Vol] 455 mg/dL High 74-[address] [facility] Comment on above: MANAGEMENT OF PATIEN T CARE PER NURSING PROTOCOL Hematocrit Auto (Bld) [Volum e fraction]Ordered By: Jamie Manrique on 09-11-2024 Hematocrit (Bld) [Volume fraction] 39.8 % 37-47 [facility] Hemoglobin measurementOrdere d By: Jamie Manrique on 09-11-2024 Hemoglobin (Bld) [Mass/Vol] 13.5 g/dL 12.0-15.0 [facility] MCV (mean corpuscular volume ) determinationOrdered By: Jamie Manrique on 09-11-2024 MCV (RBC) [Entitic vol] 89.4 fL 81-99 [facility] Mean corpuscular hemoglobin (MCH) determinationOrdered By: Jamie Manrique on 09-11-2024 MCH (RBC) [Entitic mass] 30.3 pg 27.0-32.0 [facility] Mean corpuscular hemoglobin concentration (MCHC) determinationOrdered By: Jamie Manrique on 09-11-2024 MCHC (RBC) [Mass/Vol] 33.9 g/dL 32-36 [facility] Mean platelet volume determi nationOrdered By: Jamie Manrique on 09-11-2024 Platelet mean volume (Bld) [Entitic vol] 10.7 fL 6.2-12.0 [facility] Platelet countOrdered By: Adam Manrique on 09-11-2024 Platelets (Bld) [#/Vol] 205 10*3/uL 150-450 [facility] Potassium (Unsp spec) [Mass/ Vol]Ordered By: Jamie Manrique on 09-11-2024 Potassium [Moles/Vol] 4.3 mmol/L 3.3-5.1 [facility] Comment on above: Hemolysis present, R esults could be affected. Potassium measurement (mass/ volume)Ordered By: Jamie Manrique on 09-11-2024 Potassium (Unsp spec) [Mass/Vol] 4.3 mmol/L 3.3-5.1 [facility] Comment on above: Hemolysis present, R esults could be affected. RBC Auto (Bld) [#/Vol]Ordere d By: Jamie Manrique on 09-11-2024 RBC (Bld) [#/Vol] 4.45 10*6/uL 4.2-5.4 [facility] Serum creatinine measurement (mass/volume)Ordered By: Jamie Manrique on 09-11-2024 Creatinine [Mass/Vol] 0.87 mg/dL 0.70-1.20 [facility] Serum glucose measurement (m ass/volume)Ordered By: Damaris Thibodeaux on 09-11-2024 Glucose [Mass/Vol] 513 mg/dL High 70-[address] [facility] Comment on above: Critical Result(s) C alled at 1303: TO TAYINI by: MIHAELA Results read back by same. Serum or plasma calcium oliver urement (mass/volume)Ordered By: Jamie Manrique on 09-11-2024 Calcium [Mass/Vol] 8.9 mg/dL 7.6-11.[address] [facility] Serum or plasma urea nitroge n measurement (mass/volume)Ordered By: Jamie Manrique on 09-11-2024 Urea nitrogen [Mass/Vol] 34 mg/dL High 4-19 [facility] Sodium levelOrdered By: Carlos Manrique on 09-11-2024 Sodium [Moles/Vol] 135 mmol/L 133-[address] [facility] White blood cell (WBC) count Ordered By: Jamie Manrique on 09-11-2024 WBC (Bld) [#/Vol] 9.1 10*3/uL 4.4-11.[address] [facility] Absolute lymphocyte countOrd ered By: Francine Steele on 09-10-2024 Lymphocytes Auto (Unsp spec) [#/Vol] 0.90 10*3/uL 0.83-4.51 [facility] Absolute neutrophil countOrd ered By: Francine Steele on 09-10-2024 Neutrophils (Bld) [#/Vol] 7.6 10*3/uL 2.0-7.7 [facility] Automated lymphocyte count a s percentage of total leukocytesOrdered By: Francine Steele on 09-10-2024 Lymphocytes/100 WBC Auto (Unsp spec) 10.4 % Low 19-41 [facility] Basic Metabolic Profile (BMP )on 09-10-2024 BUN/CRE 28.5 RATIO High 10-20 [facility] Comment on above: Performed By: #### L 500.2500, L501.9985, L100.0100 ####[facility] [address] [place], [address] Calcium [Mass/Vol] 9.1 mg/dL Normal 7.6-11.[address] [facility] Comment on above: Performed By: #### L 500.2500, L501.9985, L100.0100 ####[facility] [address] [place], [address] Chloride [Moles/Vol] 103 mmol/L Normal 98-108 [facility] Comment on above: Performed By: #### L 500.2500, L501.9985, L100.0100 ####[facility] [address] [place], [address] CO2 [Moles/Vol] 17.8 mmol/L Low 21.0-32.0 [facility] Comment on above: Performed By: #### L 500.2500, L501.9985, L100.0100 ####[facility] [address] [place], [address] Creatinine [Mass/Vol] 0.82 mg/dL Normal 0.70-1.20 [facility] Comment on above: Performed By: #### L 500.2500, L501.9985, L100.0100 ####[facility] [address] [place], [address] ECRCL 86.74 ml/min Normal 50-250 [facility] Comment on above: Performed By: #### L 500.2500, L501.9985, L100.0100 ####[facility] [address] [place], [address] GAP 16 High 5-15 [facility] Comment on above: Performed By: #### L 500.2500, L501.9985, L100.0100 ####[facility] [address] [place], [address] GFR/1.73 sq M.predicted among non-blacks MDRD (S/P/Bld) [Vol rate/Area] 85 mL/min/{1.73_m2} Normal >60 [facility] Comment on above: Result Comment: mL/m in/1.73m2 CKD-EPI Creatinine Equation (2020) Performed By: #### L 500.2500, L501.9985, L100.0100 ####[facility] [address] [place], [address] Glucose [Mass/Vol] 315 mg/dL High 70-[address] [facility] Comment on above: Performed By: #### L 500.2500, L501.9985, L100.0100 ####[facility] [address] [place], [address] Potassium [Moles/Vol] 3.4 mmol/L Normal 3.3-5.1 [facility] Comment on above: Performed By: #### L 500.2500, L501.9985, L100.0100 ####[facility] [address] [place], [address] Sodium [Moles/Vol] 137 mmol/L Normal 133-[address] [facility] Comment on above: Performed By: #### L 500.2500, L501.9985, L100.0100 ####[facility] [address] [place], [address] Urea nitrogen [Mass/Vol] 23 mg/dL High 4-19 [facility] Comment on above: Performed By: #### L 500.2500, L501.9985, L100.0100 ####[facility] [address] [place], [address] Basophil percentageOrdered B y: Francine Steele on 09-10-2024 Basophils/100 WBC (Bld) 0.1 % 0-1 [facility] Bedside Glucoseon 09-10-2024 FINGERSTICK GLU 305 mg/dL High 74-106 [facility] Comment on above: Result Comment: HILDA GEMENT OF PATIENT CARE PER NURSING PROTOCOL Performed By: #### L 501.080 ####[facility] [address] [place], [address] FINGERSTICK GLU 291 mg/dL High 74-106 [facility] Comment on above: Result Comment: HILDA GEMENT OF PATIENT CARE PER NURSING PROTOCOL Performed By: #### L 501.080 ####[facility] [address] [place], [address] FINGERSTICK GLU 292 mg/dL High 74-106 [facility] Comment on above: Result Comment: HILDA GEMENT OF PATIENT CARE PER NURSING PROTOCOL Performed By: #### L 501.080 ####[facility] [address] [place], [address] FINGERSTICK GLU 282 mg/dL High 74-106 [facility] Comment on above: Result Comment: HILDA GEMENT OF PATIENT CARE PER NURSING PROTOCOL Performed By: #### L 501.080 ####[facility] [address] [place], [address] CBC W/Diff, Automatedon 04- Absolute Lymph 0.90 X10 3/uL Normal 0.83-4.51 [facility] Comment on above: Performed By: #### L 500.2500, L501.9985, L100.0100 ####[facility] [address] [place], [address] Absolute Neut 7.6 X10 3/uL Normal 2.0-7.7 [facility] Comment on above: Performed By: #### L 500.2500, L501.9985, L100.0100 ####[facility] [address] [place], [address] Basophils/100 WBC (Bld) 0.1 % Normal 0-1 [facility] Comment on above: Performed By: #### L 500.2500, L501.9985, L100.0100 ####[facility] [address] [place], [address] Eosinophils/100 WBC (Bld) 0.0 % Normal 0-5 [facility] Comment on above: Performed By: #### L 500.2500, L501.9985, L100.0100 ####[facility] [address] [place], [address] Erythrocyte distribution width (RBC) [Ratio] 13.0 % Normal 11.6-14.6 [facility] Comment on above: Performed By: #### L 500.2500, L501.9985, L100.0100 ####[facility] [address] [place], [address] Hematocrit (Bld) [Volume fraction] 40.6 % Normal 37-47 [facility] Comment on above: Performed By: #### L 500.2500, L501.9985, L100.0100 ####[facility] [address] [place], [address] Hemoglobin (Bld) [Mass/Vol] 13.7 g/dL Normal 12.0-15.0 [facility] Comment on above: Performed By: #### L 500.2500, L501.9985, L100.0100 ####[facility] [address] [place], [address] IG% 0.500 Normal 0.0-0.9 [facility] Comment on above: Result Comment: IG% - Immature Granulocytes (promyelocytes, myelocytes andmetamyelocytes) > 1% indicates that a LEFT SHIFT is Present. Performed By: #### L 500.2500, L501.9985, L100.0100 ####[facility] [address] [place], [address] Lymphocytes/100 WBC (Bld) 10.4 % Low 19-41 [facility] Comment on above: Performed By: #### L 500.2500, L501.9985, L100.0100 ####[facility] [address] [place], [address] MCH (RBC) [Entitic mass] 30.1 pg Normal 27.0-32.0 [facility] Comment on above: Performed By: #### L 500.2500, L501.9985, L100.0100 ####[facility] [address] [place], [address] MCHC (RBC) [Mass/Vol] 33.7 g/dL Normal 32-36 [facility] Comment on above: Performed By: #### L 500.2500, L501.9985, L100.0100 ####[facility] [address] [place], [address] MCV (RBC) [Entitic vol] 89.2 fL Normal 81-99 [facility] Comment on above: Performed By: #### L 500.2500, L501.9985, L100.0100 ####[facility] [address] [place], [address] Monocytes/100 WBC (Bld) 1.4 % Normal 0-10 [facility] Comment on above: Performed By: #### L 500.2500, L501.9985, L100.0100 ####[facility] [address] [place], [address] Neutrophils/100 WBC (Bld) 87.6 % High 47-70 [facility] Comment on above: Performed By: #### L 500.2500, L501.9985, L100.0100 ####[facility] [address] [place], [address] Nucleated RBC (Bld) [#/Vol] 0 10*3/uL Normal 0-5 [facility] Comment on above: Performed By: #### L 500.2500, L501.9985, L100.0100 ####[facility] [address] [place], [address] Platelet mean volume (Bld) [Entitic vol] 10.7 fL Normal 6.2-12.0 [facility] Comment on above: Performed By: #### L 500.2500, L501.9985, L100.0100 ####[facility] [address] [place], [address] Platelets (Bld) [#/Vol] 196 10*3/uL Normal 150-450 [facility] Comment on above: Performed By: #### L 500.2500, L501.9985, L100.0100 ####[facility] [address] [place], [address] RBC (Bld) [#/Vol] 4.55 10*6/uL Normal 4.2-5.4 [facility] Comment on above: Performed By: #### L 500.2500, L501.9985, L100.0100 ####[facility] [address] [place], [address] RDW SD 42.5 fl Normal 35.1-43.9 [facility] Comment on above: Performed By: #### L 500.2500, L501.9985, L100.0100 ####[facility] [address] [place], [address] WBC (Bld) [#/Vol] 8.7 10*3/uL Normal 4.4-11.[address] [facility] Comment on above: Performed By: #### L 500.2500, L501.9985, L100.0100 ####[facility] [address] [place], [address] Electrocardiogram reportOrde red By: Cr Ho on 09-10-2024 EKG study [facility] [address] [place] [address] 12 Lead EKG 09/09/24 1612 MR#: [id number] Acct: [id number] Name: PITO HENDRIX Rep #:[id number] : 1970 53 From: Cr oH MD Attending Dr: Dr. Jamie Manrique DO Status: ADM IN Ordering Dr: Carlos Saleem MD Date: Location: [facility] Sex: F C Admitted: 09/09/24 Test Reason : SOB Blood Pressure : */* mmHG Vent. Rate : 96 BPM Atrial Rate : 96 BPM P-R Int : 148 ms QRS Dur : 144 ms QT Int : 418 ms P-R-T Axes : 55 37 24 degrees QTcB Int : 528 ms Atrial-sensed ventricular-paced rhythm Biventricular pacemaker detected Abnormal ECG Confirmed by CR HO MD ([id number]), film and video editor GUILLERMO LAROSE ([id number]) on 09/10/2024 9:14:14 AM Referred By: Carlos Saleem Confirmed By: CR HO MD 09/10/24 0914 Date _ Cr Ho MD CC: Dr. Carlos Saleem MD; Dr. Jamie Manrique DO; Dr. Margo Tatum DO ~ Signed [facility] Work Phone: Eosinophil percentageOrdered By: Francine Steele on 09-10-2024 Eosinophils/100 WBC (Bld) 0.0 % 0-5 [facility] Hemoglobin A1con 09-10-2024 HbA1c (Bld) [Mass fraction] 9.4 % Normal <=5.6 [facility] Comment on above: Performed By: #### L 500.2500, L501.9985, L100.0100 ####[facility] [address] [place], [place], [id number] Hemoglobin A1c percentageOrd ered By: Francine Steele on 09-10-2024 HbA1c (Bld) [Mass fraction] 9.4 % >5.7 [facility] Immature granulocytes/100 WB C Auto (Bld)Ordered By: Francine Steele on 09-10-2024 Immature granulocytes/100 WBC (Bld) 0.500 % 0.0-0.9 [facility] Comment on above: IG% - Immature Granu locytes (promyelocytes, myelocytes and metamyelocytes) > 1% indicates that a LEFT SHIFT is Present. Influenza virus A and B and SARS-CoV-2 (COVID-19) and Respiratory syncytial virus RNAOrdered By: Jamie Manrique on 09-10-2024 SARS-CoV-2 (COVID-19) RNA ROSALIA+probe Ql (Unsp spec) [facility] Lymphocytes Auto (Unsp spec) [#/Vol]Ordered By: Francine Steele on 09-10-2024 Lymphocytes (Bld) [#/Vol] 0.90 10*3/uL 0.83-4.51 [facility] Lymphocytes/100 WBC Auto (Un sp spec)Ordered By: Francine Steele on 09-10-2024 Lymphocytes/100 WBC (Bld) 10.4 % Low 19-41 [facility] M100.678on 09-10-2024 M100.678 Pending SARS-CoV-2 (COVID 19) Negative INFLUENZA A Negative INFLUENZA B Negative RSV PCR Negative Normal [facility] Comment on above: Performed By: #### M 100.678 ####[facility] [address] [place], [place], [id number] Monocyte percentageOrdered B y: Francine Steele on 09-10-2024 Monocytes/100 WBC (Bld) 1.4 % 0-10 [facility] Neutrophil percentageOrdered By: Francine Steele on 09-10-2024 Neutrophils/100 WBC (Bld) 87.6 % High 47-70 [facility] Nucleated red blood cell per centageOrdered By: Francine Steele on 09-10-2024 Nucleated RBC/100 WBC (Bld) [Ratio] 0 % 0-5 [facility] RESPIRATORY PANEL MOLECULARo n 09-10-2024 RP PANEL Normal [facility] Comment on above: Performed By: #### M 100.638 ####[facility] [address] [place], [address] Respiratory pathogens DNA an d RNA panel ROSALIA+probe (Resp)Ordered By: Jamie Manrique on 09-10-2024 Respiratory Panel (PCR) [facility] Respiratory pathogens detect ion panel by molecular detection methodOrdered By: Jamie Manrique on 09-10-2024 Respiratory pathogens DNA and RNA panel ROSALIA+probe (Resp) [facility] 12 Lead EKGon 09-09-2024 12 Lead EKG Normal [facility] Absolute neutrophil countOrd ered By: Carlos Saleem on 09-09-2024 Neutrophils (Bld) [#/Vol] 4.3 10*3/uL 2.0-7.7 [facility] Anion gap in Serum or Plasma Ordered By: Carlos Saleem on 09-09-2024 Anion gap [Moles/Vol] 12 mmol/L 5-15 [facility] BUN/creatinine ratioOrdered By: Carlos Saleem on 09-09-2024 Urea nitrogen/Creatinine [Mass ratio] 22.7 mg/mg High 10-20 [facility] Basic Metabolic Profile (BMP )on 09-09-2024 BUN/CRE 22.7 RATIO High 10-20 [facility] Comment on above: Performed By: #### L 500.2500, L300.8000, L100.0100 ####[facility] [address] [place], [address] Calcium [Mass/Vol] 9.0 mg/dL Normal 7.6-11.[address] [facility] Comment on above: Performed By: #### L 500.2500, L300.8000, L100.0100 ####[facility] [address] [place], [address] Chloride [Moles/Vol] 108 mmol/L Normal 98-108 [facility] Comment on above: Performed By: #### L 500.2500, L300.8000, L100.0100 ####[facility] [address] [place], [address] CO2 [Moles/Vol] 17.7 mmol/L Low 21.0-32.0 [facility] Comment on above: Performed By: #### L 500.2500, L300.8000, L100.0100 ####[facility] [address] [place], [address] Creatinine [Mass/Vol] 0.78 mg/dL Normal 0.70-1.20 [facility] Comment on above: Performed By: #### L 500.2500, L300.8000, L100.0100 ####[facility] [address] [place], [address] ECRCL 92.93 ml/min Normal 50-250 [facility] Comment on above: Performed By: #### L 500.2500, L300.8000, L100.0100 ####[facility] [address] [place], [address] GAP 12 Normal 5-15 [facility] Comment on above: Performed By: #### L 500.2500, L300.8000, L100.0100 ####[facility] [address] [place], [address] GFR/1.73 sq M.predicted among non-blacks MDRD (S/P/Bld) [Vol rate/Area] 91 mL/min/{1.73_m2} Normal >60 [facility] Comment on above: Result Comment: mL/m in/1.73m2 CKD-EPI Creatinine Equation (2020) Performed By: #### L 500.2500, L300.8000, L100.0100 ####[facility] [address] [place], [address] Glucose [Mass/Vol] 198 mg/dL High 70-[address] [facility] Comment on above: Performed By: #### L 500.2500, L300.8000, L100.0100 ####[facility] [address] [place], [address] Potassium [Moles/Vol] 4.0 mmol/L Normal 3.3-5.1 [facility] Comment on above: Result Comment: Hemo lysis present, Results??could be affected.?? Performed By: #### L 500.2500, L300.8000, L100.0100 ####[facility] [address] [place], [address] Sodium [Moles/Vol] 138 mmol/L Normal 133-[address] [facility] Comment on above: Performed By: #### L 500.2500, L300.8000, L100.0100 ####[facility] [address] [place], [address] Urea nitrogen [Mass/Vol] 18 mg/dL Normal 4-19 [facility] Comment on above: Performed By: #### L 500.2500, L300.8000, L100.0100 ####[facility] [address] [place], [address] Basophil percentageOrdered B y: Carlos Saleem on 09-09-2024 Basophils/100 WBC (Bld) 0.3 % 0-1 [facility] CBC W/Diff, Automatedon 04-0 Absolute Lymph 1.55 X10 3/uL Normal 0.83-4.51 [facility] Comment on above: Performed By: #### L 500.2500, L300.8000, L100.0100 ####[facility] [address] [place], [address] Absolute Neut 4.3 X10 3/uL Normal 2.0-7.7 [facility] Comment on above: Performed By: #### L 500.2500, L300.8000, L100.0100 ####[facility] [address] [place], [address] Basophils/100 WBC (Bld) 0.3 % Normal 0-1 [facility] Comment on above: Performed By: #### L 500.2500, L300.8000, L100.0100 ####[facility] [address] [place], [address] Eosinophils/100 WBC (Bld) 1.0 % Normal 0-5 [facility] Comment on above: Performed By: #### L 500.2500, L300.8000, L100.0100 ####[facility] [address] [place], [address] Erythrocyte distribution width (RBC) [Ratio] 13.0 % Normal 11.6-14.6 [facility] Comment on above: Performed By: #### L 500.2500, L300.8000, L100.0100 ####[facility] [address] [place], [address] Hematocrit (Bld) [Volume fraction] 39.9 % Normal 37-47 [facility] Comment on above: Performed By: #### L 500.2500, L300.8000, L100.0100 ####[facility] [address] [place], [address] Hemoglobin (Bld) [Mass/Vol] 13.5 g/dL Normal 12.0-15.0 [facility] Comment on above: Performed By: #### L 500.2500, L300.8000, L100.0100 ####[facility] [address] [place], [address] IG% 0.200 Normal 0.0-0.9 [facility] Comment on above: Result Comment: IG% - Immature Granulocytes (promyelocytes, myelocytes andmetamyelocytes) > 1% indicates that a LEFT SHIFT is Present. Performed By: #### L 500.2500, L300.8000, L100.0100 ####[facility] [address] [place], [address] Lymphocytes/100 WBC (Bld) 25.2 % Normal 19-41 [facility] Comment on above: Performed By: #### L 500.2500, L300.8000, L100.0100 ####[facility] [address] [place], [address] MCH (RBC) [Entitic mass] 30.4 pg Normal 27.0-32.0 [facility] Comment on above: Performed By: #### L 500.2500, L300.8000, L100.0100 ####[facility] [address] [place], [address] MCHC (RBC) [Mass/Vol] 33.8 g/dL Normal 32-36 [facility] Comment on above: Performed By: #### L 500.2500, L300.8000, L100.0100 ####[facility] [address] [place], [address] MCV (RBC) [Entitic vol] 89.9 fL Normal 81-99 [facility] Comment on above: Performed By: #### L 500.2500, L300.8000, L100.0100 ####[facility] [address] [place], [address] Monocytes/100 WBC (Bld) 3.9 % Normal 0-10 [facility] Comment on above: Performed By: #### L 500.2500, L300.8000, L100.0100 ####[facility] [address] [place], [address] Neutrophils/100 WBC (Bld) 69.4 % Normal 47-70 [facility] Comment on above: Performed By: #### L 500.2500, L300.8000, L100.0100 ####[facility] [address] [place], [address] Nucleated RBC (Bld) [#/Vol] 0 10*3/uL Normal 0-5 [facility] Comment on above: Performed By: #### L 500.2500, L300.8000, L100.0100 ####[facility] [address] [place], [address] Platelet mean volume (Bld) [Entitic vol] 10.2 fL Normal 6.2-12.0 [facility] Comment on above: Performed By: #### L 500.2500, L300.8000, L100.0100 ####[facility] [address] [place], [address] Platelets (Bld) [#/Vol] 180 10*3/uL Normal 150-450 [facility] Comment on above: Performed By: #### L 500.2500, L300.8000, L100.0100 ####[facility] [address] [place], [address] RBC (Bld) [#/Vol] 4.44 10*6/uL Normal 4.2-5.4 [facility] Comment on above: Performed By: #### L 500.2500, L300.8000, L100.0100 ####[facility] [address] [place], [address] RDW SD 42.7 fl Normal 35.1-43.9 [facility] Comment on above: Performed By: #### L 500.2500, L300.8000, L100.0100 ####[facility] [address] [place], [address] WBC (Bld) [#/Vol] 6.2 10*3/uL Normal 4.4-11.[address] [facility] Comment on above: Performed By: #### L 500.2500, L300.8000, L100.0100 ####[facility] [address] [place], [address] CTA Chest W/WO Contraston 04 -06-2025 CTA Chest W/WO Contrast Normal [facility] Carbon dioxide, total [Moles /volume] in Central venous bloodOrdered By: Carlos Saleem on 09-09-2024 CO2 [Moles/Vol] 17.7 mmol/L Low 21.0-32.0 [facility] Chest 1 View (Portable)on Chest 1 View (Portable) Normal [facility] Chloride assayOrdered By: Adam Saleem on 09-09-2024 Chloride [Moles/Vol] 108 mmol/L 98-108 [facility] D-Dimer Quantitative (DVT/PE )on 09-09-2024 D-DIMER QUANT 1.06 FEU/ug/m Invalid Interpretation Code 0.27-0.49 [facility] Comment on above: Result Comment: D-Di kevin ELEVATED (>0.49): Additional studies and clinicalassessments are indicated to conclude diagnosis of:Deep Vein Thrombosis (DVT) or Pulmonary Embolism (PE)CRITICAL VALUE CALLED TO Sherrie RODRIGES09/09/24 Burton Browning.RESULTS READ BACK BY SAME. Performed By: #### L 500.2500, L300.8000, L100.0100 ####[facility] [address] [place], [place], [id number] D-dimer measurement for deep venous thrombosisOrdered By: Carlos Saleem on 09-09-2024 D-Dimer Quantitative (PE/DVT) 1.06 FEU/ug/m High 0.27-0.49 [facility] Comment on above: D-Dimer ELEVATED (>0 .49): Additional studies and clinicalassessments are indicated to conclude diagnosis of:Deep Vein Thrombosis (DVT) or Pulmonary Embolism (PE)CRITICAL VALUE CALLED TO Sherrie RODRIGES09/09/24 [facility] Browning.RESULTS READ BACK BY SAME. Emergency Department Summary on 09-09-2024 Emergency Department Summary Normal [facility] Eosinophil percentageOrdered By: Carlos Saleem on 09-09-2024 Eosinophils/100 WBC (Bld) 1.0 % 0-5 [facility] Erythrocyte distribution wid th (RBC) [Ratio]Ordered By: Carlos Saleem on 09-09-2024 Erythrocyte distribution width (RBC) [Entitic vol] 42.7 fL 35.1-43.9 [facility] Erythrocyte distribution wid th ratioOrdered By: Carlos Saleem on 09-09-2024 Erythrocyte distribution width (RBC) [Ratio] 13.0 % 11.6-14.6 [facility] Estimation of creatinine kenzie aranceOrdered By: Carlos Saleem on 09-09-2024 Estimated Creatinine Clearance Calc 92.93 ml/min 50-250 [facility] GFR/1.73 sq M.predicted aleksandr g non-blacks MDRD (S/P/Bld) [Vol rate/Area]Ordered By: Carlos Saleem on 09-09-2024 Estimated GFR (MDRD) Non-Af Amer 91 >60 [facility] Comment on above: mL/min/1.73m2 CKD-EP I Creatinine Equation (2020) H AND P Exam - Hospitaliston 09-09-2024 H&P Exam - Hospitalist Normal [facility] Hematocrit Auto (Bld) [Volum e fraction]Ordered By: Carlos Saleem on 09-09-2024 Hematocrit (Bld) [Volume fraction] 39.9 % 37-47 [facility] Hemoglobin measurementOrdere d By: Carlos Saleem on 09-09-2024 Hemoglobin (Bld) [Mass/Vol] 13.5 g/dL 12.0-15.0 [facility] Immature granulocytes/100 WB C Auto (Bld)Ordered By: Carlos Saleem on 09-09-2024 Immature granulocytes/100 WBC (Bld) 0.200 % 0.0-0.9 [facility] Comment on above: IG% - Immature Granu locytes (promyelocytes, myelocytes and metamyelocytes) > 1% indicates that a LEFT SHIFT is Present. L503.7505on 09-09-2024 Natriuretic peptide B (Bld) [Mass/Vol] 2124 pg/mL High <=900 [facility] Comment on above: Result Comment: Hear t Failure Unlikely: < 300 pg/mLHeart Failure Likely< 50 Years: > 450 pg/mL50-75 Years: > 900 pg/mL>75 Years: > 1800 pg/mL Performed By: #### L 503.8268 ####[facility] [address] [place], [address] Lymphocytes Auto (Unsp spec) [#/Vol]Ordered By: Carlos Saleem on 09-09-2024 Lymphocytes (Bld) [#/Vol] 1.55 10*3/uL 0.83-4.51 [facility] Lymphocytes/100 WBC Auto (Un sp spec)Ordered By: Carlos Saleem on 09-09-2024 Lymphocytes/100 WBC (Bld) 25.2 % 19-41 [facility] MCV (mean corpuscular volume ) determinationOrdered By: Carlos Saleem on 09-09-2024 MCV (RBC) [Entitic vol] 89.9 fL 81-99 [facility] Mean corpuscular hemoglobin (MCH) determinationOrdered By: Carlos Saleem on 09-09-2024 MCH (RBC) [Entitic mass] 30.4 pg 27.0-32.0 [facility] Mean corpuscular hemoglobin concentration (MCHC) determinationOrdered By: Carlos Saleem on 09-09-2024 MCHC (RBC) [Mass/Vol] 33.8 g/dL 32-36 [facility] Mean platelet volume determi nationOrdered By: Carlos Saleem on 09-09-2024 Platelet mean volume (Bld) [Entitic vol] 10.2 fL 6.2-12.0 [facility] Monocyte percentageOrdered B y: Carlos Saleem on 09-09-2024 Monocytes/100 WBC (Bld) 3.9 % 0-10 [facility] Natriuretic peptide.B prohor tiffanie N-Terminal [Mass/Vol]Ordered By: Carlos Saleem on 09-09-2024 Natriuretic peptide B (Bld) [Mass/Vol] 2124 pg/mL High <900 [facility] Comment on above: Heart Failure Unlike ly: < 300 pg/mLHeart Failure Likely< 50 Years: > 450 pg/mL50-75 Years: > 900 pg/mL>75 Years: > 1800 pg/mL Natriuretic peptide.B prohor tiffanie N-Terminal [Mass/volume] in Serum or PlasmaOrdered By: Carlos Saleem on 09-09-2024 Natriuretic peptide.B prohormone N-Terminal [Mass/Vol] 2124 pg/mL High <900 [facility] Comment on above: Heart Failure Unlike ly: < 300 pg/mLHeart Failure Likely< 50 Years: > 450 pg/mL50-75 Years: > 900 pg/mL>75 Years: > 1800 pg/mL Neutrophil percentageOrdered By: Carlos Saleem on 09-09-2024 Neutrophils/100 WBC (Bld) 69.4 % 47-70 [facility] Nucleated red blood cell per centageOrdered By: Carlos Saleem on 09-09-2024 Nucleated RBC/100 WBC (Bld) [Ratio] 0 % 0-5 [facility] Platelet countOrdered By: Adam Saleem on 09-09-2024 Platelets (Bld) [#/Vol] 180 10*3/uL 150-450 [facility] Potassium (Unsp spec) [Mass/ Vol]Ordered By: Carlos Saleem on 09-09-2024 Potassium [Moles/Vol] 4.0 mmol/L 3.3-5.1 [facility] Comment on above: Hemolysis present, R esults could be affected. RBC Auto (Bld) [#/Vol]Ordere d By: Carlos Saleem on 09-09-2024 RBC (Bld) [#/Vol] 4.44 10*6/uL 4.2-5.4 [facility] Serum creatinine measurement (mass/volume)Ordered By: Carlos Saleem on 09-09-2024 Creatinine [Mass/Vol] 0.78 mg/dL 0.70-1.20 [facility] Serum glucose measurement (m ass/volume)Ordered By: Carlos Saleem on 09-09-2024 Glucose [Mass/Vol] 198 mg/dL High 70-[address] [facility] Serum or plasma calcium oliver urement (mass/volume)Ordered By: Carlos Saleem on 09-09-2024 Calcium [Mass/Vol] 9.0 mg/dL 7.6-11.[address] [facility] Serum or plasma urea nitroge n measurement (mass/volume)Ordered By: Carlos Saleem on 09-09-2024 Urea nitrogen [Mass/Vol] 18 mg/dL 4-19 [facility] Sodium levelOrdered By: Carlos Saleem on 09-09-2024 Sodium [Moles/Vol] 138 mmol/L 133-[address] [facility] White blood cell (WBC) count Ordered By: Carlos Saleem on 09-09-2024 WBC (Bld) [#/Vol] 6.2 10*3/uL 4.4-11.[address] [facility] Direct serum free thyroxine (FT4) measurementOrdered By: Mike Tom on 07-05-2024 Free T4 [Mass/Vol] 1.03 ng/dL 0.76-1.[address] [facility] Free T3on 07-05-2024 Free T3 [Mass/Vol] 3.6 pg/mL Normal 2.18-3.[address] [facility] Comment on above: Performed By: #### L 501.49811, L501.9520, L506.0400 ####[facility] [address] [place], [place], [id number] Free U7Mqohhsj By: Vega on 07-05-2024 Free T3 [Mass/Vol] 3.6 pg/mL 2.18-3.[address] [facility] Free Triiodothyronine (T3) pg/dL 3.6 pg/mL 2.18-3.98 [facility] Serum or plasma thyroid stim ulating hormone (TSH) measurement (units/volume)Ordered By: Mike Tom on 07-05-2024 TSH Qn 0.511 uIU/mL 0.358-3.740 [facility] T4 Free Directon 07-05-2024 T4 FREE DIRECT 1.03 ng/dL Normal 0.76-1.46 [facility] Comment on above: Performed By: #### L 501.47647, L501.9520, L506.0400 ####[facility] [address] [place], [place], [id number] TSH QnOrdered By: Mike salmeron on 07-05-2024 Thyroid Stimulating Hormone (TSH) 0.511 uIU/mL 0.358-3.740 [facility] Thyroid Stim Hormone (TSH)on 07-05-2024 TSH 0.511 uIU/mL Normal 0.358-3.740 [facility] Comment on above: Performed By: #### L 501.91815, L501.9520, L506.0400 ####[facility] [address] [place], [place], [address] Endocrinology Visit Reporton 06-13-2024 Endocrinology Visit Report Normal [facility] Laboratory - Hematology and Cell countson 06-13-2024 HbA1c (Bld) [Mass fraction] 8.7 % High 4.2-6.3 [facility] 12 Lead EKGon 05-30-2024 12 Lead EKG Normal [facility] Chest PA and Lateralon 05-30 Chest PA and Lateral Normal [facility] Emergency Department Summary on 05-30-2024 Emergency Department Summary Normal [facility] Influenza virus A and B and SARS-CoV-2 (COVID-19) and Respiratory syncytial virus RNAOrdered By: Miguel Solorio on 05-30-2024 SARS-CoV-2 (COVID-19) RNA ROSALIA+probe Ql (Unsp spec) [facility] M100.678on 05-30-2024 M100.678 Pending SARS-CoV-2 (COVID 19) Negative INFLUENZA A Negative INFLUENZA B Negative RSV PCR Negative Normal [facility] Comment on above: Performed By: #### M 100.678 ####[facility] [address] [place], [place], [id number] Endocrinology Visit Reporton 04-04-2024 Endocrinology Visit Report Normal [facility] Miscellaneous Lab Procedureo n 04-02-2024 MISC LAB TEST Normal [facility] Comment on above: Order Comment: RUN L OWEST [id number] URINE TOX Result Comment: [id number] 6+OXYCODONE-BUND (ng/mL)DRUG RESULT SCREEN CUTOFF____ Amphetamines,Urine Negative ng/mL 1000Amphetamine test includes Amphetamine and Methamphetamine.Barbiturates Negative ng/mL 200Benzodiazepines Negative ng/mL 200Cannabinoid Negative ng/mL 20Cocaine (Metab) Negative ng/mL 300Opiates Positive ng/mL 300 Opiates test includes Codeine, Morphine, Hydromorphone, Hydrocodone.Please Note: Confirmation performed by Mass Spectrometry Codeine Negative 300 Morphine Negative 300 Hydromorphone Negative 300 Hydrocodone Positive Hydrocodone Conf, MS, UR 718 ng/mL 300Oxycodone/Oxymorphone,Urine Negative ng/mL 300 Test includes Oxycodone and Oxymorphone. TESTING PERFORMED AT [facility]. ORIGINAL REPORT ON FILE IN LAB CONTAINS ADDITIONAL TEST SITE INFORMATION. Performed By: #### L 505.5000, L801.1541 ####[facility] [address] [place], [address] Lumbar Spine 2 or 3 Viewson 03-27-2024 Lumbar Spine 2 or 3 Views Normal [facility] Urine Drug Screen (VISTA)on 03-27-2024 AMPHETAMINES Negative Normal <1000 ng/mL [facility] Comment on above: Order Comment: MEDTO X Performed By: #### L 505.5000, L801.1541 ####[facility] [address] [place], [place], [id number] BARBITIURATES Negative Normal < 200 ng/mL [facility] Comment on above: Order Comment: MEDTO X Performed By: #### L 505.5000, L801.1541 ####[facility] [address] [place], [place], [id number] BENZODIAZIPINE Negative Normal < 200 ng/mL [facility] Comment on above: Order Comment: MEDTO X Performed By: #### L 505.5000, L801.1541 ####[facility] [address] [place], [address] COCAINE Negative Normal < 300 ng/mL [facility] Comment on above: Order Comment: MEDTO X Performed By: #### L 505.5000, L801.1541 ####[facility] [address] [place], [address] ECSTACY Negative Normal < 500 ng/mL [facility] Comment on above: Order Comment: MEDTO X Performed By: #### L 505.5000, L801.1541 ####[facility] [address] [place], [address] METHADONE Negative Normal < 300 ng/mL [facility] Comment on above: Order Comment: MEDTO X Performed By: #### L 505.5000, L801.1541 ####[facility] [address] [place], [address] OPIATES Positive Abnormal < 300 ng/mL [facility] Comment on above: Order Comment: MEDTO X Performed By: #### L 505.5000, L801.1541 ####[facility] [address] [place], [address] PCP Negative Normal < 25 ng/mL [facility] Comment on above: Order Comment: MEDTO X Performed By: #### L 505.5000, L801.1541 ####[facility] [address] [place], [address] THC Negative Normal < 50 ng/mL [facility] Comment on above: Order Comment: MEDTO X Performed By: #### L 505.5000, L801.1541 ####[facility] [address] [place], [address] VISTA UDS PH 5 Normal [facility] Comment on above: Order Comment: MEDTO X Performed By: #### L 505.5000, L801.1541 ####[facility] [address] [place], [address] CBC-Complete Blood Cnt No Di ffon 01-21-2024 HCT Normal 37-47 [facility] Comment on above: Result Comment: Canc elled via OM: Order cancelled - Patient discharged Performed By: #### L 100.0500, L500.4050 ####[facility] [address] [place], [address] HGB Normal 12.0-15.0 [facility] Comment on above: Result Comment: Canc elled via OM: Order cancelled - Patient discharged Performed By: #### L 100.0500, L500.4050 ####[facility] [address] [place], [address] MCH Normal 27.0-32.0 [facility] Comment on above: Result Comment: Canc elled via OM: Order cancelled - Patient discharged Performed By: #### L 100.0500, L500.4050 ####[facility] [address] [place], [address] MCHC Normal 32-36 [facility] Comment on above: Result Comment: Canc elled via OM: Order cancelled - Patient discharged Performed By: #### L 100.0500, L500.4050 ####[facility] [address] [place], [address] MCV Normal 81-99 [facility] Comment on above: Result Comment: Canc elled via OM: Order cancelled - Patient discharged Performed By: #### L 100.0500, L500.4050 ####[facility] [address] [place], [address] PLT Normal 150-450 [facility] Comment on above: Result Comment: Canc elled via OM: Order cancelled - Patient discharged Performed By: #### L 100.0500, L500.4050 ####[facility] [address] [place], [address] RBC Normal 4.2-5.4 [facility] Comment on above: Result Comment: Canc elled via OM: Order cancelled - Patient discharged Performed By: #### L 100.0500, L500.4050 ####[facility] [address] [place], [address] RDW CV Normal 11.6-14.6 [facility] Comment on above: Result Comment: Canc elled via OM: Order cancelled - Patient discharged Performed By: #### L 100.0500, L500.4050 ####[facility] [address] [place], [address] RDW SD Normal 35.1-43.9 [facility] Comment on above: Result Comment: Canc elled via OM: Order cancelled - Patient discharged Performed By: #### L 100.0500, L500.4050 ####[facility] [address] [place], [address] WBC Normal 4.4-11.0 [facility] Comment on above: Result Comment: Canc elled via OM: Order cancelled - Patient discharged Performed By: #### L 100.0500, L500.4050 ####[facility] [address] [place], [address] Comprehensive Metabolic Prof ilon 01-21-2024 ALB Normal 3.2-5.0 [facility] Comment on above: Result Comment: Canc elled via OM: Order cancelled - Patient discharged Performed By: #### L 100.0500, L500.4050 ####[facility] [address] [place], [address] ALK P Normal 45-117 [facility] Comment on above: Result Comment: Canc elled via OM: Order cancelled - Patient discharged Performed By: #### L 100.0500, L500.4050 ####[facility] [address] [place], [address] ALT Normal 13-56 [facility] Comment on above: Result Comment: Canc elled via OM: Order cancelled - Patient discharged Performed By: #### L 100.0500, L500.4050 ####[facility] [address] [place], [address] AST Normal 15-37 [facility] Comment on above: Result Comment: Canc elled via OM: Order cancelled - Patient discharged Performed By: #### L 100.0500, L500.4050 ####[facility] [address] [place], [address] BUN Normal 7-18 [facility] Comment on above: Result Comment: Canc elled via OM: Order cancelled - Patient discharged Performed By: #### L 100.0500, L500.4050 ####[facility] [address] [place], [address] BUN/CRE Normal 10-20 [facility] Comment on above: Result Comment: Canc elled via OM: Order cancelled - Patient discharged Performed By: #### L 100.0500, L500.4050 ####[facility] [address] [place], [address] CA,Total Normal 8.5-10.1 [facility] Comment on above: Result Comment: Canc elled via OM: Order cancelled - Patient discharged Performed By: #### L 100.0500, L500.4050 ####[facility] [address] [place], [address] CL Normal 98-107 [facility] Comment on above: Result Comment: Canc elled via OM: Order cancelled - Patient discharged Performed By: #### L 100.0500, L500.4050 ####[facility] [address] [place], [address] CO2 Normal 21.0-32.0 [facility] Comment on above: Result Comment: Canc elled via OM: Order cancelled - Patient discharged Performed By: #### L 100.0500, L500.4050 ####[facility] [address] [place], [address] CREAT,SERUM Normal 0.55-1.02 [facility] Comment on above: Result Comment: Canc elled via OM: Order cancelled - Patient discharged Performed By: #### L 100.0500, L500.4050 ####[facility] [address] [place], [address] EST GFR Normal >60 [facility] Comment on above: Result Comment: Canc elled via OM: Order cancelled - Patient discharged Performed By: #### L 100.0500, L500.4050 ####[facility] [address] [place], [address] EST GFR - AA Normal >60 [facility] Comment on above: Result Comment: Canc elled via OM: Order cancelled - Patient discharged Performed By: #### L 100.0500, L500.4050 ####[facility] [address] [place], [address] GAP Normal 5-15 [facility] Comment on above: Result Comment: Canc elled via OM: Order cancelled - Patient discharged Performed By: #### L 100.0500, L500.4050 ####[facility] [address] [place], [address] GLU Normal 74-106 [facility] Comment on above: Result Comment: Canc elled via OM: Order cancelled - Patient discharged Performed By: #### L 100.0500, L500.4050 ####[facility] [address] [place], [address] Potassium Normal 3.5-5.1 [facility] Comment on above: Result Comment: Canc elled via OM: Order cancelled - Patient discharged Performed By: #### L 100.0500, L500.4050 ####[facility] [address] [place], [address] T BILI Normal 0.20-1.00 [facility] Comment on above: Result Comment: Canc elled via OM: Order cancelled - Patient discharged Performed By: #### L 100.0500, L500.4050 ####[facility] [address] [place], [address] T PROT Normal 6.4-8.2 [facility] Comment on above: Result Comment: Canc elled via OM: Order cancelled - Patient discharged Performed By: #### L 100.0500, L500.4050 ####[facility] [address] [place], [address] Comprehensive Metabolic Profil Normal 136-145 [facility] Comment on above: Result Comment: Canc elled via OM: Order cancelled - Patient discharged Performed By: #### L 100.0500, L500.4050 ####[facility] [address] [place], [address] Bedside Glucoseon 01-20-2024 FINGERSTICK GLU 224 mg/dL High 74-106 [facility] Comment on above: Result Comment: HILDA GEMENT OF PATIENT CARE PER NURSING PROTOCOL Performed By: #### L 501.080 ####[facility] [address] [place], [address] FINGERSTICK GLU 261 mg/dL High 74-106 [facility] Comment on above: Result Comment: HILDA GEMENT OF PATIENT CARE PER NURSING PROTOCOL Performed By: #### L 501.080 ####[facility] [address] [place], [address] FINGERSTICK GLU 218 mg/dL High 74-106 [facility] Comment on above: Result Comment: HILDA GEMENT OF PATIENT CARE PER NURSING PROTOCOL Performed By: #### L 501.080 ####[facility] [address] [place], [address] CBC W/Diff, Automatedon 01-04 Absolute Lymph 1.92 X10 3/uL Normal 0.83-4.51 [facility] Comment on above: Performed By: #### L 501.2300, L500.4050, L501.5200, L500.4100, L100.0100 ####[facility] [address] [place], [address] Absolute Neut 2.2 X10 3/uL Normal 2.0-7.7 [facility] Comment on above: Performed By: #### L 501.2300, L500.4050, L501.5200, L500.4100, L100.0100 ####[facility] [address] [place], [address] Basophils/100 WBC (Bld) 0.4 % Normal 0-1 [facility] Comment on above: Performed By: #### L 501.2300, L500.4050, L501.5200, L500.4100, L100.0100 ####[facility] [address] [place], [address] Eosinophils/100 WBC (Bld) 1.7 % Normal 0-5 [facility] Comment on above: Performed By: #### L 501.2300, L500.4050, L501.5200, L500.4100, L100.0100 ####[facility] [address] [place], [address] Erythrocyte distribution width (RBC) [Ratio] 15.9 % High 11.6-14.6 [facility] Comment on above: Performed By: #### L 501.2300, L500.4050, L501.5200, L500.4100, L100.0100 ####[facility] [address] [place], [address] Hematocrit (Bld) [Volume fraction] 34.7 % Low 37-47 [facility] Comment on above: Performed By: #### L 501.2300, L500.4050, L501.5200, L500.4100, L100.0100 ####[facility] [address] [place], [address] Hemoglobin (Bld) [Mass/Vol] 11.1 g/dL Low 12.0-15.0 [facility] Comment on above: Performed By: #### L 501.2300, L500.4050, L501.5200, L500.4100, L100.0100 ####[facility] [address] [place], [address] IG% 0.200 Normal 0.0-0.9 [facility] Comment on above: Result Comment: IG% - Immature Granulocytes (promyelocytes, myelocytes andmetamyelocytes) > 1% indicates that a LEFT SHIFT is Present. Performed By: #### L 501.2300, L500.4050, L501.5200, L500.4100, L100.0100 ####[facility] [address] [place], [address] Lymphocytes/100 WBC (Bld) 41.9 % High 19-41 [facility] Comment on above: Performed By: #### L 501.2300, L500.4050, L501.5200, L500.4100, L100.0100 ####[facility] [address] [place], [address] MCH (RBC) [Entitic mass] 28.4 pg Normal 27.0-32.0 [facility] Comment on above: Performed By: #### L 501.2300, L500.4050, L501.5200, L500.4100, L100.0100 ####[facility] [address] [place], [address] MCHC (RBC) [Mass/Vol] 32.0 g/dL Normal 32-36 [facility] Comment on above: Performed By: #### L 501.2300, L500.4050, L501.5200, L500.4100, L100.0100 ####[facility] [address] [place], [address] MCV (RBC) [Entitic vol] 88.7 fL Normal 81-99 [facility] Comment on above: Performed By: #### L 501.2300, L500.4050, L501.5200, L500.4100, L100.0100 ####[facility] [address] [place], [address] Monocytes/100 WBC (Bld) 6.8 % Normal 0-10 [facility] Comment on above: Performed By: #### L 501.2300, L500.4050, L501.5200, L500.4100, L100.0100 ####[facility] [address] [place], [address] Neutrophils/100 WBC (Bld) 49.0 % Normal 47-70 [facility] Comment on above: Performed By: #### L 501.2300, L500.4050, L501.5200, L500.4100, L100.0100 ####[facility] [address] [place], [address] Nucleated RBC (Bld) [#/Vol] 0 10*3/uL Normal 0-5 [facility] Comment on above: Performed By: #### L 501.2300, L500.4050, L501.5200, L500.4100, L100.0100 ####[facility] [address] [place], [address] Platelet mean volume (Bld) [Entitic vol] 10.7 fL Normal 6.2-12.0 [facility] Comment on above: Performed By: #### L 501.2300, L500.4050, L501.5200, L500.4100, L100.0100 ####[facility] [address] [place], [address] Platelets (Bld) [#/Vol] 151 10*3/uL Normal 150-450 [facility] Comment on above: Performed By: #### L 501.2300, L500.4050, L501.5200, L500.4100, L100.0100 ####[facility] [address] [place], [address] RBC (Bld) [#/Vol] 3.91 10*6/uL Low 4.2-5.4 [facility] Comment on above: Performed By: #### L 501.2300, L500.4050, L501.5200, L500.4100, L100.0100 ####[facility] [address] [place], [address] RDW SD 51.2 fl High 35.1-43.9 [facility] Comment on above: Performed By: #### L 501.2300, L500.4050, L501.5200, L500.4100, L100.0100 ####[facility] [address] [place], [address] WBC (Bld) [#/Vol] 4.6 10*3/uL Normal 4.4-11.[address] [facility] Comment on above: Performed By: #### L 501.2300, L500.4050, L501.5200, L500.4100, L100.0100 ####[facility] [address] [place], [address] Cardiac Cath Diagnosticon Cardiac Cath Diagnostic Normal [facility] Comprehensive Metabolic Prof ilon 01-20-2024 Albumin [Mass/Vol] 2.8 g/dL Low 3.2-5.[address] [facility] Comment on above: Performed By: #### L 501.2300, L500.4050, L501.5200, L500.4100, L100.0100 ####[facility] [address] [place], [address] Albumin/Globulin [Mass ratio] 0.8 {ratio} Low 0.9-2.4 [facility] Comment on above: Performed By: #### L 501.2300, L500.4050, L501.5200, L500.4100, L100.0100 ####[facility] [address] [place], [address] ALK P 87 U/L Normal 45-117 [facility] Comment on above: Performed By: #### L 501.2300, L500.4050, L501.5200, L500.4100, L100.0100 ####[facility] [address] [place], [address] ALT [Catalytic activity/Vol] 15 U/L Normal 13-56 [facility] Comment on above: Performed By: #### L 501.2300, L500.4050, L501.5200, L500.4100, L100.0100 ####[facility] [address] [place], [address] AST [Catalytic activity/Vol] 11 U/L Low 15-37 [facility] Comment on above: Performed By: #### L 501.2300, L500.4050, L501.5200, L500.4100, L100.0100 ####[facility] [address] [place], [address] Bilirubin [Mass/Vol] 0.30 mg/dL Normal 0.20-1.00 [facility] Comment on above: Result Comment: For patients on eltrombopag therapy, use of Dimension [place] TBIL is not recommended. Performed By: #### L 501.2300, L500.4050, L501.5200, L500.4100, L100.0100 ####[facility] [address] [place], [address] BUN/CRE 18.9 RATIO Normal 10-20 [facility] Comment on above: Performed By: #### L 501.2300, L500.4050, L501.5200, L500.4100, L100.0100 ####[facility] [address] [place], [address] CA,Total 8.8 mg/dL Normal 8.5-10.1 [facility] Comment on above: Performed By: #### L 501.2300, L500.4050, L501.5200, L500.4100, L100.0100 ####[facility] [address] [place], [address] Chloride [Moles/Vol] 113 mmol/L High 98-107 [facility] Comment on above: Performed By: #### L 501.2300, L500.4050, L501.5200, L500.4100, L100.0100 ####[facility] [address] [place], [address] CO2 [Moles/Vol] 21.0 mmol/L Normal 21.0-32.0 [facility] Comment on above: Performed By: #### L 501.2300, L500.4050, L501.5200, L500.4100, L100.0100 ####[facility] [address] [place], [address] Creatinine [Mass/Vol] 0.85 mg/dL Normal 0.55-1.02 [facility] Comment on above: Result Comment: The validity of the calculated GFR GFRAA in patients over70 years has not been determined. Clinical correlation isessential. Performed By: #### L 501.2300, L500.4050, L501.5200, L500.4100, L100.0100 ####[facility] [address] [place], [address] ECRCL 83.63 ml/min Normal [facility] Comment on above: Performed By: #### L 501.2300, L500.4050, L501.5200, L500.4100, L100.0100 ####[facility] [address] [place], [address] EST GFR - AA 90 mL/min Normal >60 [facility] Comment on above: Result Comment: Afri can Slovenian GFR Calc Performed By: #### L 501.2300, L500.4050, L501.5200, L500.4100, L100.0100 ####[facility] [address] [place], [address] GAP 6 Normal 5-15 [facility] Comment on above: Performed By: #### L 501.2300, L500.4050, L501.5200, L500.4100, L100.0100 ####[facility] [address] [place], [address] GFR/1.73 sq M.predicted among non-blacks MDRD (S/P/Bld) [Vol rate/Area] 74 mL/min/{1.73_m2} Normal >60 [facility] Comment on above: Result Comment: Non- GFR Calc Performed By: #### L 501.2300, L500.4050, L501.5200, L500.4100, L100.0100 ####[facility] [address] [place], [address] Globulin (S) [Mass/Vol] 3.3 g/dL Normal 2.2-4.2 [facility] Comment on above: Performed By: #### L 501.2300, L500.4050, L501.5200, L500.4100, L100.0100 ####[facility] [address] [place], [address] Glucose [Mass/Vol] 334 mg/dL High 74-[address] [facility] Comment on above: Result Comment: Gluc ose result greater than or equal to 200 mg/dLsuggests DIABETES MELLITUS per A.D.A. criteria. Performed By: #### L 501.2300, L500.4050, L501.5200, L500.4100, L100.0100 ####[facility] [address] [place], [address] Potassium [Moles/Vol] 3.9 mmol/L Normal 3.5-5.1 [facility] Comment on above: Performed By: #### L 501.2300, L500.4050, L501.5200, L500.4100, L100.0100 ####[facility] [address] [place], [address] Sodium [Moles/Vol] 140 mmol/L Normal 136-[address] [facility] Comment on above: Performed By: #### L 501.2300, L500.4050, L501.5200, L500.4100, L100.0100 ####[facility] [address] [place], [address] T PROT 6.1 g/dL Low 6.4-8.2 [facility] Comment on above: Performed By: #### L 501.2300, L500.4050, L501.5200, L500.4100, L100.0100 ####[facility] [address] [place], [address] Urea nitrogen [Mass/Vol] 16 mg/dL Normal 7-18 [facility] Comment on above: Performed By: #### L 501.2300, L500.4050, L501.5200, L500.4100, L100.0100 ####[facility] [address] [place], [address] Discharge Instructionon 01-04 Discharge Instruction Normal [facility] Lipid Profileon 01-20-2024 Cholesterol [Mass/Vol] 129 mg/dL Normal 200 [facility] Comment on above: Result Comment: <200 mg/dL Desirable 200-240 mg/dL Borderline >240 mg/dL High Risk Performed By: #### L 501.2300, L500.4050, L501.5200, L500.4100, L100.0100 ####[facility] [address] [place], [address] Cholesterol in HDL [Mass/Vol] 45 mg/dL Normal [facility] Comment on above: Result Comment: The drugs N-Acetylcysteine and Metamizole may falselydepress this assay. Reference Range HDL <40 mg/dL Low HDL Cholesterol HDL >or= 60 mg/dL High HDL Cholesterol Performed By: #### L 501.2300, L500.4050, L501.5200, L500.4100, L100.0100 ####[facility] [address] [place], [address] Cholesterol in LDL [Mass/Vol] 46 mg/dL Normal 0-130 [facility] Comment on above: Performed By: #### L 501.2300, L500.4050, L501.5200, L500.4100, L100.0100 ####[facility] [address] [place], [address] Cholesterol in VLDL [Mass/Vol] 38 mg/dL Normal 5-40 [facility] Comment on above: Performed By: #### L 501.2300, L500.4050, L501.5200, L500.4100, L100.0100 ####[facility] [address] [place], [address] Triglyceride [Mass/Vol] 189 mg/dL Normal [facility] Comment on above: Result Comment: The drugs N-Acetylcysteine and Metamizole may falselydepress this assay.Serum Triglycerides Reference Interval Normal <150 mg/dL Borderline high 150 - 199 mg/dL High 200 - 499 mg/dL Very High > or = 500 mg/dL Performed By: #### L 501.2300, L500.4050, L501.5200, L500.4100, L100.0100 ####[facility] [address] [place], [address] Magnesiumon 01-20-2024 Magnesium [Mass/Vol] 2.0 mg/dL Normal 1.6-2.6 [facility] Comment on above: Performed By: #### L 501.2300, L500.4050, L501.5200, L500.4100, L100.0100 ####[facility] [address] [place], [address] Phosphoruson 01-20-2024 Phosphate [Mass/Vol] 3.0 mg/dL Normal 2.5-4.9 [facility] Comment on above: Performed By: #### L 501.2300, L500.4050, L501.5200, L500.4100, L100.0100 ####[facility] [address] [place], [address] 12 Lead EKGon 01-19-2024 12 Lead EKG Normal [facility] 12 Lead EKG Normal [facility] Basic Metabolic Profile (BMP )on 01-19-2024 BUN/CRE 9.2 RATIO Low 10-20 [facility] Comment on above: Order Comment: 'TROP ' Serial specimen #1, #2 or #3: 1 Performed By: #### L 100.0100, L500.2500, L501.4020 ####[facility] [address] [place], [address] CA,Total 9.0 mg/dL Normal 8.5-10.1 [facility] Comment on above: Order Comment: 'TROP ' Serial specimen #1, #2 or #3: 1 Performed By: #### L 100.0100, L500.2500, L501.4020 ####[facility] [address] [place], [address] Chloride [Moles/Vol] 106 mmol/L Normal 98-107 [facility] Comment on above: Order Comment: 'TROP ' Serial specimen #1, #2 or #3: 1 Performed By: #### L 100.0100, L500.2500, L501.4020 ####[facility] [address] [place], [address] CO2 [Moles/Vol] 23.0 mmol/L Normal 21.0-32.0 [facility] Comment on above: Order Comment: 'TROP ' Serial specimen #1, #2 or #3: 1 Performed By: #### L 100.0100, L500.2500, L501.4020 ####[facility] [address] [place], [address] Creatinine [Mass/Vol] 1.19 mg/dL High 0.55-1.02 [facility] Comment on above: Order Comment: 'TROP ' Serial specimen #1, #2 or #3: 1 Result Comment: The validity of the calculated GFR GFRAA in patients over70 years has not been determined. Clinical correlation isessential. Performed By: #### L 100.0100, L500.2500, L501.4020 ####[facility] [address] [place], [address] ECRCL 59.94 ml/min Normal [facility] Comment on above: Order Comment: 'TROP ' Serial specimen #1, #2 or #3: 1 Performed By: #### L 100.0100, L500.2500, L501.4020 ####[facility] [address] [place], [address] EST GFR - AA 61 mL/min Normal >60 [facility] Comment on above: Order Comment: 'TROP ' Serial specimen #1, #2 or #3: 1 Result Comment: Afri can Slovenian GFR Calc Performed By: #### L 100.0100, L500.2500, L501.4020 ####[facility] [address] [place], [address] GAP 9 Normal 5-15 [facility] Comment on above: Order Comment: 'TROP ' Serial specimen #1, #2 or #3: 1 Performed By: #### L 100.0100, L500.2500, L501.4020 ####[facility] [address] [place], [address] GFR/1.73 sq M.predicted among non-blacks MDRD (S/P/Bld) [Vol rate/Area] 50 mL/min/{1.73_m2} Low >60 [facility] Comment on above: Order Comment: 'TROP ' Serial specimen #1, #2 or #3: 1 Result Comment: Non- GFR Calc Performed By: #### L 100.0100, L500.2500, L501.4020 ####[facility] [address] [place], [address] Glucose [Mass/Vol] 407 mg/dL High 74-[address] [facility] Comment on above: Order Comment: 'TROP ' Serial specimen #1, #2 or #3: 1 Result Comment: Gluc ose result greater than or equal to 200 mg/dLsuggests DIABETES MELLITUS per A.D.A. criteria. Performed By: #### L 100.0100, L500.2500, L501.4020 ####[facility] [address] [place], [address] Potassium [Moles/Vol] 3.1 mmol/L Low 3.5-5.1 [facility] Comment on above: Order Comment: 'TROP ' Serial specimen #1, #2 or #3: 1 Performed By: #### L 100.0100, L500.2500, L501.4020 ####[facility] [address] [place], [address] Sodium [Moles/Vol] 138 mmol/L Normal 136-[address] [facility] Comment on above: Order Comment: 'TROP ' Serial specimen #1, #2 or #3: 1 Performed By: #### L 100.0100, L500.2500, L501.4020 ####[facility] [address] [place], [address] Urea nitrogen [Mass/Vol] 11 mg/dL Normal 7-18 [facility] Comment on above: Order Comment: 'TROP ' Serial specimen #1, #2 or #3: 1 Performed By: #### L 100.0100, L500.2500, L501.4020 ####[facility] [address] [place], [address] Bedside Glucoseon 01-19-2024 FINGERSTICK GLU 172 mg/dL High 74-106 [facility] Comment on above: Result Comment: HILDA PANIAGUA OF PATIENT CARE PER NURSING PROTOCOL Performed By: #### L 501.080 ####[facility] [address] [place], [address] CBC W/Diff, Automatedon 01-04 Absolute Lymph 1.36 X10 3/uL Normal 0.83-4.51 [facility] Comment on above: Performed By: #### L 100.0100, L500.2500, L501.4020 ####[facility] [address] [place], [address] Absolute Neut 4.1 X10 3/uL Normal 2.0-7.7 [facility] Comment on above: Performed By: #### L 100.0100, L500.2500, L501.4020 ####[facility] [address] [place], [address] Basophils/100 WBC (Bld) 0.5 % Normal 0-1 [facility] Comment on above: Performed By: #### L 100.0100, L500.2500, L501.4020 ####[facility] [address] [place], [address] Eosinophils/100 WBC (Bld) 1.7 % Normal 0-5 [facility] Comment on above: Performed By: #### L 100.0100, L500.2500, L501.4020 ####[facility] [address] [place], [address] Erythrocyte distribution width (RBC) [Ratio] 15.7 % High 11.6-14.6 [facility] Comment on above: Performed By: #### L 100.0100, L500.2500, L501.4020 ####[facility] [address] [place], [address] Hematocrit (Bld) [Volume fraction] 41.7 % Normal 37-47 [facility] Comment on above: Performed By: #### L 100.0100, L500.2500, L501.4020 ####[facility] [address] [place], [address] Hemoglobin (Bld) [Mass/Vol] 13.0 g/dL Normal 12.0-15.0 [facility] Comment on above: Performed By: #### L 100.0100, L500.2500, L501.4020 ####[facility] [address] [place], [address] IG% 0.200 Normal 0.0-0.9 [facility] Comment on above: Result Comment: IG% - Immature Granulocytes (promyelocytes, myelocytes andmetamyelocytes) > 1% indicates that a LEFT SHIFT is Present. Performed By: #### L 100.0100, L500.2500, L501.4020 ####[facility] [address] [place], [address] Lymphocytes/100 WBC (Bld) 22.6 % Normal 19-41 [facility] Comment on above: Performed By: #### L 100.0100, L500.2500, L501.4020 ####[facility] [address] [place], [address] MCH (RBC) [Entitic mass] 27.7 pg Normal 27.0-32.0 [facility] Comment on above: Performed By: #### L 100.0100, L500.2500, L501.4020 ####[facility] [address] [place], [address] MCHC (RBC) [Mass/Vol] 31.2 g/dL Low 32-36 [facility] Comment on above: Performed By: #### L 100.0100, L500.2500, L501.4020 ####[facility] [address] [place], [address] MCV (RBC) [Entitic vol] 88.9 fL Normal 81-99 [facility] Comment on above: Performed By: #### L 100.0100, L500.2500, L501.4020 ####[facility] [address] [place], [address] Monocytes/100 WBC (Bld) 7.1 % Normal 0-10 [facility] Comment on above: Performed By: #### L 100.0100, L500.2500, L501.4020 ####[facility] [address] [place], [address] Neutrophils/100 WBC (Bld) 67.9 % Normal 47-70 [facility] Comment on above: Performed By: #### L 100.0100, L500.2500, L501.4020 ####[facility] [address] [place], [address] Nucleated RBC (Bld) [#/Vol] 0 10*3/uL Normal 0-5 [facility] Comment on above: Performed By: #### L 100.0100, L500.2500, L501.4020 ####[facility] [address] [place], [address] Platelet mean volume (Bld) [Entitic vol] 10.6 fL Normal 6.2-12.0 [facility] Comment on above: Performed By: #### L 100.0100, L500.2500, L501.4020 ####[facility] [address] [place], [address] Platelets (Bld) [#/Vol] 190 10*3/uL Normal 150-450 [facility] Comment on above: Performed By: #### L 100.0100, L500.2500, L501.4020 ####[facility] [address] [place], [address] RBC (Bld) [#/Vol] 4.69 10*6/uL Normal 4.2-5.4 [facility] Comment on above: Performed By: #### L 100.0100, L500.2500, L501.4020 ####[facility] [address] [place], [address] RDW SD 50.4 fl High 35.1-43.9 [facility] Comment on above: Performed By: #### L 100.0100, L500.2500, L501.4020 ####[facility] [address] [place], [address] WBC (Bld) [#/Vol] 6.0 10*3/uL Normal 4.4-11.[address] [facility] Comment on above: Performed By: #### L 100.0100, L500.2500, L501.4020 ####[facility] [address] [place], [address] Chest 1 View (Portable)on Chest 1 View (Portable) Normal [facility] Consultation - Cardiologyon 01-19-2024 Consultation - Cardiology Normal [facility] Echo Completeon 01-19-2024 Echo Complete Normal [facility] Emergency Department Summary on 01-19-2024 Emergency Department Summary Normal [facility] Endocrinology Visit Reporton 01-19-2024 Endocrinology Visit Report Normal [facility] H AND P Exam - Hospitaliston 01-19-2024 H&P Exam - Hospitalist Normal [facility] L501.4020on 01-19-2024 TROPONIN-I HS 5 pg/mL Normal 3.0-54.0 [facility] Comment on above: Order Comment: Comme nts: SPECIMEN #3'TROP' Serial specimen #1, #2 or #3: 3 Result Comment: Plea se Note: New Test Units and Gender Specific Reference Ranges. For more information see Policy Stat Procedure [place] High Sensitivity Troponin (TNIH) and attachments. Performed By: #### L 501.4020 ####[facility] [address] [facility] [id number]) TROPONIN-I HS 6 pg/mL Normal 3.0-54.0 [facility] Comment on above: Order Comment: Comme nts: SPECIMEN #2'TROP' Serial specimen #1, #2 or #3: 2 Result Comment: Plea se Note: New Test Units and Gender Specific Reference Ranges. For more information see Policy Stat Procedure [place] High Sensitivity Troponin (TNIH) and attachments. Performed By: #### L 501.4020 ####[facility] [address] [facility] [id number] TROPONIN-I HS 6 pg/mL Normal 3.0-54.0 [facility] Comment on above: Order Comment: 'TROP ' Serial specimen #1, #2 or #3: 1 Result Comment: Plea se Note: New Test Units and Gender Specific Reference Ranges. For more information see Policy Stat Procedure [place] High Sensitivity Troponin (TNIH) and attachments. Performed By: #### L 501.4020 ####[facility] [address] [place], [place], [id number](047) TROPONIN-I HS 4 pg/mL Normal 3.0-54.0 [facility] Comment on above: Order Comment: 'TROP ' Serial specimen #1, #2 or #3: 1 Result Comment: Dipti villalba Note: New Test Units and Gender Specific Reference Ranges. For more information see Policy Stat Procedure [place] High Sensitivity Troponin (TNIH) and attachments. Performed By: #### L 100.0100, L500.2500, L501.4020 ####[facility] [address] [place], [address] Thyroidon 01-05-2024 Thyroid Normal [facility] 12 Lead EKG performed by BMS on 12-13-2023 12 Lead EKG performed by BMS Normal [facility] Cardiology Visit Reporton Cardiology Visit Report Normal [facility] Basophil percentageOrdered B y: Jamie Manrique on 09-10-2023 Basophil percentage 8.3 g/dL 12.0-15.0 [facility] Basophils (Bld) [#/Vol] 4.5 10*3/uL 4.4-11.0 [facility] Determination of erythrocyte mean corpuscular volume (MCV)Ordered By: Jamie Manrique on 09-10-2023 MCV (RBC) [Entitic vol] 100.4 fL 81-99 [facility] Erythrocyte distribution wid th ratioOrdered By: Jamie Manrique on 09-10-2023 Erythrocyte distribution width (RBC) [Ratio] 14.7 % 11.6-14.6 [facility] Erythrocyte distribution wid th standard deviationOrdered By: Jamie Manrique on 09-10-2023 Erythrocyte distribution width (RBC) [Entitic vol] 52.9 fL 35.1-43.9 [facility] Hematocrit Auto (Bld) [Volum e fraction]Ordered By: Jamie Manrique on 09-10-2023 Hematocrit (Bld) [Volume fraction] 25.7 % 37-47 [facility] No Panel InformationOrdered By: Jamie Manrique on 09-10-2023 32.4 pg 27.0-32.0 [facility] 32.3 g/dL 32-36 [facility] 199 K/mm3 150-450 [facility] 10.0 fl 6.2-12.0 [facility] RBC Auto (Bld) [#/Vol]Ordere d By: Jmaie Manrique on 09-10-2023 RBC (Bld) [#/Vol] 2.56 10*6/uL 4.2-5.4 [facility] Thin prep Papanicolaou smear with manual screeningOrdered By: Jamie Manrique on 09-10-2023 Thin prep Papanicolaou smear with manual screening 190 mg/dL 74-106 [facility] Basophil percentageOrdered B y: Berenice Short on 09-09-2023 Basophil percentage 158 mg/dL 74-106 [facility] Basophil percentage 138 mmol/L 136-145 [facility] Basophil percentage 3.7 mmol/L 3.5-5.1 [facility] Basophil percentage 110 mmol/L 98-107 [facility] No Panel InformationOrdered By: Berenice Short on 09-09-2023 96 mL/min >60 [facility] 116 mL/min >60 [facility] 106.91 ml/min [facility] 30.8 RATIO 10-20 [facility] 23.0 mmol/L 21.0-32.0 [facility] Serum or plasma calcium oliver urement (mass/volume)Ordered By: Berenice Short on 09-09-2023 Calcium [Mass/Vol] 8.6 mg/dL 8.5-10.[address] [facility] Serum or plasma creatinine m easurement (mass/volume)Ordered By: Berenice Short on 09-09-2023 Creatinine [Mass/Vol] 0.68 mg/dL 0.55-1.02 [facility] Serum or plasma urea nitroge n measurement (mass/volume)Ordered By: Berenice Short on 09-09-2023 Urea nitrogen [Mass/Vol] 21 mg/dL 7-18 [facility] Thin prep Papanicolaou smear with manual screeningOrdered By: Berenice Short on 09-09-2023 Thin prep Papanicolaou smear with manual screening 5 5-15 [facility] Iron measurement (mass/mass) Ordered By: Jamie Manrique on 09-08-2023 Iron (Unsp spec) [Mass/Mass] 40 ug/dL 50-170 [facility] No Panel InformationOrdered By: Jamie Manrique on 09-08-2023 286 ug/dL 250-450 [facility] 71 ng/mL 8-252 [facility] Serum or plasma iron saturat ion measurement (mass fraction)Ordered By: Jamie Manrique on 09-08-2023 Iron saturation [Mass fraction] 14.0 % 15.0-55.0 [facility] Absolute lymphocyte countOrd ered By: Navdeep Bourgeois on 09-07-2023 Lymphocytes Auto (Unsp spec) [#/Vol] 2.01 10*3/uL 0.83-4.51 [facility] Automated lymphocyte count a s percentage of total leukocytesOrdered By: Navdeep Bourgeois on 09-07-2023 Lymphocytes/100 WBC Auto (Unsp spec) 34.1 % 19-41 [facility] Basophil percentageOrdered B y: Navdeep Bourgeois on 09-07-2023 Basophils (Bld) [#/Vol] 3.3 10*3/uL 2.0-7.7 [facility] Basophils/100 WBC (Bld) 56.1 % 47-70 [facility] Basophils/100 WBC (Bld) 8.1 % 0-10 [facility] Basophils/100 WBC (Bld) 1.0 % 0-5 [facility] Basophils/100 WBC (Bld) 0.2 % 0-1 [facility] Immature granulocytes/100 WB C Auto (Bld)Ordered By: Navdeep Bourgeois on 09-07-2023 Immature granulocytes/100 WBC (Bld) 0.500 % 0.0-0.9 [facility] No Panel InformationOrdered By: Navdeep Bourgeois on 09-07-2023 0 % 0-5 [facility] Absolute lymphocyte countOrd ered By: Terry Arzate on 09-06-2023 Lymphocytes Auto (Unsp spec) [#/Vol] 1.73 10*3/uL 0.83-4.51 [facility] Automated lymphocyte count a s percentage of total leukocytesOrdered By: Terry Arzate on 09-06-2023 Lymphocytes/100 WBC Auto (Unsp spec) 24.9 % 19-41 [facility] Bacteria identified Cx Nom ( U)Ordered By: Navdeep Bourgeois on 09-06-2023 Culture, urine Enterococcus faecalis [facility] Basophil percentageOrdered B y: Terry Huey on 09-06-2023 Basophil percentage 0 SEEN /hpf 0-5 [facility] Basophils/100 WBC (Bld) 0.1 % 0-1 [facility] Chloride [Moles/Vol] 110 mmol/L 98-107 [facility] Eosinophils/100 WBC (Bld) 0.6 % 0-5 [facility] Glucose [Mass/Vol] 169 mg/dL 74-[address] [facility] Comment on above: Fasting Glucose resu lt greater than or equal to 126 mg/dL suggests DIABETES MELLITUS per A.D.A. criteria. Hemoglobin (Bld) [Mass/Vol] 10.2 g/dL 12.0-15.0 [facility] Monocytes/100 WBC (Bld) 7.2 % 0-10 [facility] Neutrophils (Bld) [#/Vol] 4.7 10*3/uL 2.0-7.7 [facility] Neutrophils/100 WBC (Bld) 66.9 % 47-70 [facility] Potassium [Moles/Vol] 3.9 mmol/L 3.5-5.1 [facility] Sodium [Moles/Vol] 137 mmol/L 136-[address] [facility] WBC (Bld) [#/Vol] 7.0 10*3/uL 4.4-11.[address] [facility] Bilirubin Test strip Ql (U)O rdered By: Terry Arzate on 09-06-2023 Bilirubin Ql (U) Negative Negative [facility] Determination of erythrocyte mean corpuscular volume (MCV)Ordered By: Terry Arzate on 09-06-2023 MCV (RBC) [Entitic vol] 98.1 fL 81-99 [facility] Erythrocyte distribution wid th ratioOrdered By: Terry Arzate on 09-06-2023 Erythrocyte distribution width (RBC) [Ratio] 14.8 % 11.6-14.6 [facility] Erythrocyte distribution wid th standard deviationOrdered By: Terryrosario Arzate on 09-06-2023 Erythrocyte distribution width (RBC) [Entitic vol] 51.8 fL 35.1-43.9 [facility] Hematocrit Auto (Bld) [Volum e fraction]Ordered By: Terry Arzate on 09-06-2023 Hematocrit (Bld) [Volume fraction] 31.1 % 37-47 [facility] Immature granulocytes/100 WB C Auto (Bld)Ordered By: Terry Arzate on 09-06-2023 Immature granulocytes/100 WBC (Bld) 0.300 % 0.0-0.9 [facility] Comment on above: IG% - Immature Granu locytes (promyelocytes, myelocytes and metamyelocytes) > 1% indicates that a LEFT SHIFT is Present. Ketones Test strip Ql (U)Ord ered By: Terry Arzate on 09-06-2023 Ketones Ql (U) Negative Negative [facility] Laboratory - Chemistry and C hemistry - challengeOrdered By: Terryrosario Arzate on 09-06-2023 CO2 [Moles/Vol] 20.0 mmol/L 21.0-32.0 [facility] Urea nitrogen/Creatinine [Mass ratio] 35.5 mg/mg 10-20 [facility] Laboratory - Hematology and Cell countsOrdered By: Terry Arzate on 09-06-2023 MCH (RBC) [Entitic mass] 32.2 pg 27.0-32.0 [facility] MCHC (RBC) [Mass/Vol] 32.8 g/dL 32-36 [facility] Nucleated RBC/100 WBC (Bld) [Ratio] 0 % 0-5 [facility] Platelet mean volume (Bld) [Entitic vol] 9.8 fL 6.2-12.0 [facility] Platelets (Bld) [#/Vol] 220 10*3/uL 150-450 [facility] Mucus LM Ql (Urine sed)Order ed By: Terry Arzate on 09-06-2023 Mucus Ql (Urine sed) 0 SEEN /hpf [facility] Nitrite Test strip Ql (U)Ord ered By: Terry Arzate on 09-06-2023 Nitrite Ql (U) Negative Negative [facility] No Panel InformationOrdered By: Terry Arzate on 09-06-2023 Urine RBC 50-100 SEEN /hpf 0-5 [facility] 50-100 SEEN /hpf 0-5 [facility] Estimated Creatinine Clearance Calc 86.50 ml/min [facility] Estimated GFR (MDRD) Amer 90 mL/min >60 [facility] Comment on above: GFR Calc Estimated GFR (MDRD) Non-Af Amer 75 mL/min >60 [facility] Comment on above: Non- GFR Calc No Panel InformationOrdered By: Navdeep Bourgeois on 09-06-2023 15.1 SECONDS 11.7-14.9 [facility] 1.2 [facility] Protein Test strip Ql (U)Ord ered By: Terry Arzate on 09-06-2023 Protein Ql (U) 500 mg/dl Negative [facility] RBC Auto (Bld) [#/Vol]Ordere d By: Terry Arzate on 09-06-2023 RBC (Bld) [#/Vol] 3.17 10*6/uL 4.2-5.4 [facility] Serum or plasma calcium oliver urement (mass/volume)Ordered By: Terry Arzate on 09-06-2023 Calcium [Mass/Vol] 8.5 mg/dL 8.5-10.[address] [facility] Serum or plasma creatinine m easurement (mass/volume)Ordered By: Terry Arzate on 09-06-2023 Creatinine [Mass/Vol] 0.84 mg/dL 0.55-1.02 [facility] Comment on above: The validity of the calculated GFR & GFRAA in patients over 70 years has not been determined. Clinical correlation is essential. Serum or plasma urea nitroge n measurement (mass/volume)Ordered By: Terry Arzate on 09-06-2023 Urea nitrogen [Mass/Vol] 30 mg/dL 7-18 [facility] Squamous epithelial cells de tection in urine sediment by light microscopyOrdered By: Terry Arzate on 09-06-2023 Epithelial cells.squamous LM Ql (Urine sed) 0 SEEN /hpf 5-10 [facility] Thin prep Papanicolaou smear with manual screeningOrdered By: Terry Arzate on 09-06-2023 Thin prep Papanicolaou smear with manual screening 7 5-15 [facility] Urine blood detectionOrdered By: Terry Arzate on 09-06-2023 RBC Ql (U) 250 /ul Negative [facility] Urine clarityOrdered By: Terry Arzate on 09-06-2023 Clarity (U) Turbid Clear [facility] Urine color determinationOrd ered By: Terry Arzate on 09-06-2023 Color (U) Red Yellow [facility] Urine glucose detectionOrder ed By: Terry Arzate on 09-06-2023 Glucose Ql (U) 250 mg/dl Normal [facility] Urine leukocyte esterase det ection by dipstickOrdered By: Terry Arzate on 09-06-2023 Leukocyte esterase Test strip Ql (U) Negative Negative [facility] Urine pHOrdered By: Terry ponce on 09-06-2023 pH (U) 7.0 [pH] 5.0 - 8.0 [facility] Urine sediment bacteria coun t by microscopy (number/high power field)Ordered By: Terryrosario Arzate on 09-06-2023 Bacteria LM.HPF (Urine sed) [#/Area] 0 /[HPF] None Seen [facility] Urine specific gravity measu rementOrdered By: Terryrosario Arzate on 09-06-2023 Specific gravity (U) [Rel density] 1.010 1.002-1.030 [facility] Urine urobilinogen measureme ntOrdered By: Terry Arzate on 09-06-2023 Urobilinogen Ql (U) Normal mg/dl Normal [facility] Basophil percentageOrdered B y: Damaris Thibodeaux on 08-29-2023 Basophil percentage 9.7 g/dL 12.0-15.0 [facility] Hemoglobin (Bld) [Mass/Vol] 9.7 g/dL 12.0-15.0 [facility] Basophil percentage 2.8 mg/dL 2.5-4.9 [facility] Basophil percentage 245 mg/dL 74-106 [facility] Basophil percentage 140 mmol/L 136-145 [facility] Basophil percentage 3.4 mmol/L 3.5-5.1 [facility] Basophil percentage 110 mmol/L 98-107 [facility] Chloride [Moles/Vol] 110 mmol/L 98-107 [facility] Glucose [Mass/Vol] 245 mg/dL 74-[address] [facility] Comment on above: Glucose result great er than or equal to 200 mg/dLsuggests DIABETES MELLITUS per A.D.A. criteria. Potassium [Moles/Vol] 3.4 mmol/L 3.5-5.1 [facility] Sodium [Moles/Vol] 140 mmol/L 136-[address] [facility] Hematocrit Auto (Bld) [Volum e fraction]Ordered By: Aidan Staples on 08-29-2023 Hematocrit (Bld) [Volume fraction] 29.5 % 37-47 [facility] Laboratory - Chemistry and C hemistry - challengeOrdered By: Damaris Thibodeaux on 08-29-2023 CO2 [Moles/Vol] 24.0 mmol/L 21.0-32.0 [facility] Magnesium [Mass/Vol] 2.1 mg/dL 1.6-2.6 [facility] Urea nitrogen/Creatinine [Mass ratio] 8.6 mg/mg 10-20 [facility] No Panel InformationOrdered By: Damaris Thibodeaux on 08-29-2023 Estimated Creatinine Clearance Calc 89.80 ml/min [facility] Estimated GFR (MDRD) Amer 95 mL/min >60 [facility] Comment on above: GFR Calc Estimated GFR (MDRD) Non-Af Amer 78 mL/min >60 [facility] Comment on above: Non- GFR Calc 78 mL/min >60 [facility] 95 mL/min >60 [facility] 89.80 ml/min [facility] 8.6 RATIO 10 [facility] 2.1 mg/dL 1.6-2.6 [facility] 24.0 mmol/L 21.0-32.0 [facility] Serum or plasma calcium oliver urement (mass/volume)Ordered By: Damaris Thibodeaux on 08-29-2023 Calcium [Mass/Vol] 8.4 mg/dL 8.5-10.[address] [facility] Serum or plasma creatinine m easurement (mass/volume)Ordered By: Damaris Thibodeaux on 08-29-2023 Creatinine [Mass/Vol] 0.81 mg/dL 0.55-1.02 [facility] Comment on above: The validity of the calculated GFR & GFRAA in patients over 70 years has not been determined. Clinical correlation is essential. Serum or plasma urea nitroge n measurement (mass/volume)Ordered By: Damaris Thibodeaux on 08-29-2023 Urea nitrogen [Mass/Vol] 7 mg/dL -18 [facility] Thin prep Papanicolaou smear with manual screeningOrdered By: Damaris Thibodeaux on 08-29-2023 Thin prep Papanicolaou smear with manual screening 225 mg/dL 74-106 [facility] Comment on above: MANAGEMENT OF PATIEN T CARE PER NURSING PROTOCOL Thin prep Papanicolaou smear with manual screening 6 5-15 [facility] Absolute lymphocyte countOrd ered By: Perlita Dalia on 08-27-2023 Lymphocytes Auto (Unsp spec) [#/Vol] 1.71 10*3/uL 0.83-4.51 [facility] Automated lymphocyte count a s percentage of total leukocytesOrdered By: Dalia on 08-27-2023 Lymphocytes/100 WBC Auto (Unsp spec) 38.4 % 19-41 [facility] Basophil percentageOrdered B y: Perlita Dalia on 08-27-2023 Basophil percentage 6.1 g/dL 6.4-8.2 [facility] Basophil percentage 0.50 mg/dL 0.20-1.00 [facility] Basophils (Bld) [#/Vol] 4.5 10*3/uL 4.4-11.0 [facility] Basophils (Bld) [#/Vol] 2.1 10*3/uL 2.0-7.7 [facility] Basophils/100 WBC (Bld) 0.2 % 0-1 [facility] Basophils/100 WBC (Bld) 48.2 % 47-70 [facility] Basophils/100 WBC (Bld) 11.2 % 0-10 [facility] Basophils/100 WBC (Bld) 1.8 % 0-5 [facility] Bilirubin [Mass/Vol] 0.50 mg/dL 0.20-1.00 [facility] Comment on above: For patients on eltr ombopag therapy, use of Dimension Kinards TBIL is not recommended. Eosinophils/100 WBC (Bld) 1.8 % 0-5 [facility] Monocytes/100 WBC (Bld) 11.2 % 0-10 [facility] Neutrophils (Bld) [#/Vol] 2.1 10*3/uL 2.0-7.7 [facility] Neutrophils/100 WBC (Bld) 48.2 % 47-70 [facility] Protein [Mass/Vol] 6.1 g/dL 6.4-8.[address] [facility] WBC (Bld) [#/Vol] 4.5 10*3/uL 4.4-11.[address] [facility] Determination of erythrocyte mean corpuscular volume (MCV)Ordered By: Perlita Gómez on 08-27-2023 MCV (RBC) [Entitic vol] 95.7 fL 81-99 [facility] Erythrocyte distribution wid th ratioOrdered By: Perlita Dalia on 08-27-2023 Erythrocyte distribution width (RBC) [Ratio] 14.0 % 11.6-14.6 [facility] Erythrocyte distribution wid th standard deviationOrdered By: [facility] Dalia on 08-27-2023 Erythrocyte distribution width (RBC) [Entitic vol] 49.1 fL 35.1-43.9 [facility] Immature granulocytes/100 WB C Auto (Bld)Ordered By: [facility] Dalia on 08-27-2023 Immature granulocytes/100 WBC (Bld) 0.200 % 0.0-0.9 [facility] Comment on above: IG% - Immature Granu locytes (promyelocytes, myelocytes and metamyelocytes) > 1% indicates that a LEFT SHIFT is Present. Laboratory - Chemistry and C hemistry - challengeOrdered By: [facility] Dalia on 08-27-2023 Albumin/Globulin [Mass ratio] 0.9 {ratio} 0.9-2.4 [facility] ALP [Catalytic activity/Vol] 71 U/L 45-117 [facility] ALT [Catalytic activity/Vol] 16 U/L 13-56 [facility] Globulin (S) [Mass/Vol] 3.2 g/dL 2.2-4.2 [facility] Laboratory - Hematology and Cell countsOrdered By: [facility] Dalia on 08-27-2023 MCH (RBC) [Entitic mass] 31.2 pg 27.0-32.0 [facility] MCHC (RBC) [Mass/Vol] 32.6 g/dL 32-36 [facility] Nucleated RBC/100 WBC (Bld) [Ratio] 0 % 0-5 [facility] Platelet mean volume (Bld) [Entitic vol] 9.9 fL 6.2-12.0 [facility] Platelets (Bld) [#/Vol] 212 10*3/uL 150-450 [facility] No Panel InformationOrdered By: Perlita Dalia on 08-27-2023 31.2 pg 27.0-32.0 [facility] 32.6 g/dL 32-36 [facility] 212 K/mm3 150-450 [facility] 9.9 fl 6.2-12.0 [facility] 0 % 0-5 [facility] 3.2 g/dL 2.2-4.2 [facility] 0.9 RATIO 0.9-2.4 [facility] 71 U/L 45-117 [facility] 16 U/L 13-56 [facility] RBC Auto (Bld) [#/Vol]Ordere d By: Perlita Dalia on 08-27-2023 RBC (Bld) [#/Vol] 3.27 10*6/uL 4.2-5.4 [facility] Thin prep Papanicolaou smear with manual screeningOrdered By: Perlita Gómez on 08-27-2023 Thin prep Papanicolaou smear with manual screening 2.9 g/dL 3.2-5.0 [facility] Thin prep Papanicolaou smear with manual screening 13 U/L 15-37 [facility] Absolute lymphocyte countOrd ered By: Rell Loera on 08-26-2023 Lymphocytes Auto (Unsp spec) [#/Vol] 1.31 10*3/uL 0.83-4.51 [facility] Automated lymphocyte count a s percentage of total leukocytesOrdered By: Rell Loera on 08-26-2023 Lymphocytes/100 WBC Auto (Unsp spec) 25.5 % 19-41 [facility] Bacteria identified Cx Nom ( U)Ordered By: Rell Loera on 08-26-2023 Culture, urine Escherichia coli [facility] Culture, urine Lactobacillus gasseri [facility] Basophil percentageOrdered B y: Rell Loera on 08-26-2023 Basophil percentage 0 SEEN /hpf 0-5 [facility] Basophils/100 WBC (Bld) 0.2 % 0-1 [facility] Chloride [Moles/Vol] 111 mmol/L 98-107 [facility] Eosinophils/100 WBC (Bld) 1.2 % 0-5 [facility] Glucose [Mass/Vol] 179 mg/dL 74-[address] [facility] Comment on above: Fasting Glucose resu lt greater than or equal to 126 mg/dL suggests DIABETES MELLITUS per A.D.A. criteria. Hemoglobin (Bld) [Mass/Vol] 12.4 g/dL 12.0-15.0 [facility] Monocytes/100 WBC (Bld) 6.6 % 0-10 [facility] Neutrophils (Bld) [#/Vol] 3.4 10*3/uL 2.0-7.7 [facility] Neutrophils/100 WBC (Bld) 66.1 % 47-70 [facility] Potassium [Moles/Vol] 3.1 mmol/L 3.5-5.1 [facility] Sodium [Moles/Vol] 141 mmol/L 136-[address] [facility] WBC (Bld) [#/Vol] 5.1 10*3/uL 4.4-11.[address] [facility] Bilirubin Test strip Ql (U)O rdered By: Rell Loera on 08-26-2023 Bilirubin Ql (U) Negative Negative [facility] Culture, urineOrdered By: Nataliya Loera on 08-26-2023 Bacteria identified Cx Nom (U) Escherichia coli [facility] Bacteria identified Cx Nom (U) Lactobacillus gasseri [facility] Determination of erythrocyte mean corpuscular volume (MCV)Ordered By: Rell Loera on 08-26-2023 MCV (RBC) [Entitic vol] 94.3 fL 81-99 [facility] Erythrocyte distribution wid th ratioOrdered By: Rell Loera on 08-26-2023 Erythrocyte distribution width (RBC) [Ratio] 13.6 % 11.6-14.6 [facility] Erythrocyte distribution wid th standard deviationOrdered By: Rell Loera on 08-26-2023 Erythrocyte distribution width (RBC) [Entitic vol] 46.1 fL 35.1-43.9 [facility] Hematocrit Auto (Bld) [Volum e fraction]Ordered By: Rell Loera on 08-26-2023 Hematocrit (Bld) [Volume fraction] 38.2 % 37-47 [facility] Immature granulocytes/100 WB C Auto (Bld)Ordered By: Rell Loera on 08-26-2023 Immature granulocytes/100 WBC (Bld) 0.400 % 0.0-0.9 [facility] Comment on above: IG% - Immature Granu locytes (promyelocytes, myelocytes and metamyelocytes) > 1% indicates that a LEFT SHIFT is Present. Ketones Test strip Ql (U)Ord ered By: Rell Loera on 08-26-2023 Ketones Ql (U) Negative Negative [facility] Laboratory - Chemistry and C hemistry - challengeOrdered By: Rell Loera on 08-26-2023 CO2 [Moles/Vol] 23.0 mmol/L 21.0-32.0 [facility] Urea nitrogen/Creatinine [Mass ratio] 23.2 mg/mg 10-20 [facility] Laboratory - Chemistry and C hemistry - challengeOrdered By: Perlita Gómez on 08-26-2023 Magnesium [Mass/Vol] 2.1 mg/dL 1.6-2.6 [facility] Laboratory - Hematology and Cell countsOrdered By: Rell Loera on 08-26-2023 MCH (RBC) [Entitic mass] 30.6 pg 27.0-32.0 [facility] MCHC (RBC) [Mass/Vol] 32.5 g/dL 32-36 [facility] Nucleated RBC/100 WBC (Bld) [Ratio] 0 % 0-5 [facility] Platelet mean volume (Bld) [Entitic vol] 9.9 fL 6.2-12.0 [facility] Platelets (Bld) [#/Vol] 222 10*3/uL 150-450 [facility] Mucus LM Ql (Urine sed)Order ed By: Rell Loera on 08-26-2023 Mucus Ql (Urine sed) 0 SEEN /hpf [facility] Nitrite Test strip Ql (U)Ord ered By: Rell Loera on 08-26-2023 Nitrite Ql (U) Negative Negative [facility] No Panel InformationOrdered By: Rell Loera on 08-26-2023 Urine RBC > 100 SEEN /hpf 0-5 [facility] > 100 SEEN /hpf 0-5 [facility] Estimated Creatinine Clearance Calc 84.14 ml/min [facility] Estimated GFR (MDRD) Amer 88 mL/min >60 [facility] Comment on above: GFR Calc Estimated GFR (MDRD) Non-Af Amer 73 mL/min >60 [facility] Comment on above: Non- GFR Calc Protein Test strip Ql (U)Ord ered By: Rell Loera on 08-26-2023 Protein Ql (U) 500 mg/dl Negative [facility] RBC Auto (Bld) [#/Vol]Ordere d By: Rell Loera on 08-26-2023 RBC (Bld) [#/Vol] 4.05 10*6/uL 4.2-5.4 [facility] Serum or plasma calcium oliver urement (mass/volume)Ordered By: Rell Loera on 08-26-2023 Calcium [Mass/Vol] 9.4 mg/dL 8.5-10.[address] [facility] Serum or plasma creatinine m easurement (mass/volume)Ordered By: Rell Loera on 08-26-2023 Creatinine [Mass/Vol] 0.86 mg/dL 0.55-1.02 [facility] Comment on above: The validity of the calculated GFR & GFRAA in patients over 70 years has not been determined. Clinical correlation is essential. Serum or plasma urea nitroge n measurement (mass/volume)Ordered By: Rell Loera on 08-26-2023 Urea nitrogen [Mass/Vol] 20 mg/dL 7-18 [facility] Squamous epithelial cells de tection in urine sediment by light microscopyOrdered By: Rell Loera on 08-26-2023 Epithelial cells.squamous LM Ql (Urine sed) 0 SEEN /hpf 5-10 [facility] Thin prep Papanicolaou smear with manual screeningOrdered By: Rell Loera on 08-26-2023 Thin prep Papanicolaou smear with manual screening 7 5-15 [facility] Urine blood detectionOrdered By: Rell Loera on 08-26-2023 RBC Ql (U) 150 /ul Negative [facility] Urine clarityOrdered By: Senthil Loera on 08-26-2023 Clarity (U) Turbid Clear [facility] Urine color determinationOrd ered By: Rell Loera on 08-26-2023 Color (U) Red Yellow [facility] Urine glucose detectionOrder ed By: Rell Loera on 08-26-2023 Glucose Ql (U) 250 mg/dl Normal [facility] Urine leukocyte esterase det ection by dipstickOrdered By: Rell Loera on 08-26-2023 Leukocyte esterase Test strip Ql (U) Negative Negative [facility] Urine pHOrdered By: Rell Loera on 08-26-2023 pH (U) 7.0 [pH] 5.0 - 8.0 [facility] Urine sediment bacteria coun t by microscopy (number/high power field)Ordered By: Rell Loera on 08-26-2023 Bacteria LM.HPF (Urine sed) [#/Area] 2 /[HPF] None Seen [facility] Urine specific gravity measu rementOrdered By: Rell Loera on 08-26-2023 Specific gravity (U) [Rel density] 1.010 1.002-1.030 [facility] Urine urobilinogen measureme ntOrdered By: Rell Loera on 08-26-2023 Urobilinogen Ql (U) Normal mg/dl Normal [facility] Basophil percentageOrdered B y: Mike Tom on 08-11-2023 Basophil percentage 143 mg/dL <200 [facility] Basophil percentage 221 mg/dL <199 [facility] Cholesterol [Mass/Vol] 143 mg/dL <200 [facility] Comment on above: <200 mg/dL Desirable 200-240 mg/dL Borderline >240 mg/dL High Risk Triglyceride [Mass/Vol] 221 mg/dL <199 [facility] Comment on above: The drugs N-Acetylcy steine and Metamizole may falsely depress this assay.Serum Triglycerides Reference Interval Normal <150 mg/dL Borderline high 150 - 199 mg/dL High 200 - 499 mg/dL Very High > or = 500 mg/dL Laboratory - Chemistry and C hemistry - challengeOrdered By: Mike Tom on 08-11-2023 Cholesterol in HDL [Mass/Vol] 51 mg/dL >40 [facility] Comment on above: The drugs N-Acetylcy steine and Metamizole may falsely depress this assay. Reference Range HDL <40 mg/dL Low HDL Cholesterol HDL >or= 60 mg/dL High HDL Cholesterol Cholesterol in LDL [Mass/Vol] 48 mg/dL 0-130 [facility] Laboratory - Hematology and Cell countson 08-11-2023 HbA1c (Bld) [Mass fraction] 7.6 % 4.2-6.3 [facility] No Panel InformationOrdered By: Mike Tom on 08-11-2023 Free Triiodothyronine (T3) pg/dL 3.5 pg/mL 2.18-3.98 [facility] Vitamin D 25-Hydroxy 20.5 ng/mL [facility] Comment on above: Vitamin D 25(OH) Sta tus Range Deficiency <20 ng/mL (50nmol/L) Insufficiency 20 - 30 ng/mL (50 - 75 nmol/L) Sufficiency 30 - 100 ng/mL (75 - 250 nmol/L) Toxicity >100 ng/mL (>250 nmol/L) VLDL Cholesterol 44 mg/dL 5-40 [facility] 51 mg/dL >40 [facility] 48 mg/dL 0-130 [facility] 44 mg/dL 5-40 [facility] 3.5 pg/mL 2.18-3.98 [facility] 20.5 ng/mL [facility] No Panel Informationon 08-10 7.6 % 4.2-6.3 [facility] Serum or plasma thyroid stim ulating hormone (TSH) measurement (units/volume)Ordered By: iMke Tom on 08-11-2023 TSH Qn 0.26 uIU/mL 0.358-3.74 [facility] Thin prep Papanicolaou smear with manual screeningOrdered By: Mike Tom on 08-11-2023 Thin prep Papanicolaou smear with manual screening 1.20 ng/dL 0.76-1.46 [facility] Absolute lymphocyte countOrd ered By: Allen Meraz on 08-02-2023 Lymphocytes Auto (Unsp spec) [#/Vol] 1.73 10*3/uL 0.83-4.51 [facility] Automated lymphocyte count a s percentage of total leukocytesOrdered By: Allen Meraz on 08-02-2023 Lymphocytes/100 WBC Auto (Unsp spec) 28.1 % 19-41 [facility] Basophil percentageOrdered B y: Allen Meraz on 08-02-2023 Basophil percentage 13.0 g/dL 12.0-15.0 [facility] Basophil percentage 209 mg/dL 74-106 [facility] Basophil percentage 138 mmol/L 136-145 [facility] Basophil percentage 3.4 mmol/L 3.5-5.1 [facility] Basophil percentage 109 mmol/L 98-107 [facility] Basophils (Bld) [#/Vol] 6.2 10*3/uL 4.4-11.0 [facility] Basophils (Bld) [#/Vol] 4.0 10*3/uL 2.0-7.7 [facility] Basophils/100 WBC (Bld) 0.3 % 0-1 [facility] Basophils/100 WBC (Bld) 64.8 % 47-70 [facility] Basophils/100 WBC (Bld) 5.7 % 0-10 [facility] Basophils/100 WBC (Bld) 0.8 % 0-5 [facility] Chloride [Moles/Vol] 109 mmol/L 98-107 [facility] Eosinophils/100 WBC (Bld) 0.8 % 0-5 [facility] Glucose [Mass/Vol] 209 mg/dL 74-[address] [facility] Comment on above: Glucose result great er than or equal to 200 mg/dLsuggests DIABETES MELLITUS per A.D.A. criteria. Hemoglobin (Bld) [Mass/Vol] 13.0 g/dL 12.0-15.0 [facility] Monocytes/100 WBC (Bld) 5.7 % 0-10 [facility] Neutrophils (Bld) [#/Vol] 4.0 10*3/uL 2.0-7.7 [facility] Neutrophils/100 WBC (Bld) 64.8 % 47-70 [facility] Potassium [Moles/Vol] 3.4 mmol/L 3.5-5.1 [facility] Sodium [Moles/Vol] 138 mmol/L 136-[address] [facility] WBC (Bld) [#/Vol] 6.2 10*3/uL 4.4-11.[address] [facility] Determination of erythrocyte mean corpuscular volume (MCV)Ordered By: Allen Meraz on 08-02-2023 MCV (RBC) [Entitic vol] 94.2 fL 81-99 [facility] Erythrocyte distribution wid th ratioOrdered By: Allen Meraz on 08-02-2023 Erythrocyte distribution width (RBC) [Ratio] 14.0 % 11.6-14.6 [facility] Erythrocyte distribution wid th standard deviationOrdered By: Allen Meraz on 08-02-2023 Erythrocyte distribution width (RBC) [Entitic vol] 48.4 fL 35.1-43.9 [facility] Hematocrit Auto (Bld) [Volum e fraction]Ordered By: Allen Meraz on 08-02-2023 Hematocrit (Bld) [Volume fraction] 38.7 % 37-47 [facility] Immature granulocytes/100 WB C Auto (Bld)Or[facility] By: [facility] on 08-02-2023 Immature granulocytes/100 WBC (Bld) 0.300 % 0.0-0.9 [facility] Comment on above: IG% - Immature Granu locytes (promyelocytes, myelocytes and metamyelocytes) > 1% indicates that a LEFT SHIFT is Present. Laboratory - Chemistry and C hemistry - challengeOrdered By: Allen Meraz on 08-02-2023 CO2 [Moles/Vol] 23.0 mmol/L 21.0-32.0 [facility] Natriuretic peptide B (Bld) [Mass/Vol] 73.6 pg/mL 0-100 [facility] Urea nitrogen/Creatinine [Mass ratio] 23.4 mg/mg 10-20 [facility] Laboratory - Hematology and Cell countsOrdered By: Allen Meraz on 08-02-2023 MCH (RBC) [Entitic mass] 31.6 pg 27.0-32.0 [facility] MCHC (RBC) [Mass/Vol] 33.6 g/dL 32-36 [facility] Nucleated RBC/100 WBC (Bld) [Ratio] 0 % 0-5 [facility] Platelet mean volume (Bld) [Entitic vol] 9.7 fL 6.2-12.0 [facility] Platelets (Bld) [#/Vol] 207 10*3/uL 150-450 [facility] Laboratory - Microbiology an d Antimicrobial susceptibilityOrdered By: [facility] on 08-02-2023 SARS-CoV-2 (COVID-19) RNA ROSALIA+probe Ql (Unsp spec) [facility] No Panel InformationOrdered By: Allen Meraz on 08-02-2023 Estimated Creatinine Clearance Calc 77.81 ml/min [facility] Estimated GFR (MDRD) Amer 80 mL/min >60 [facility] Comment on above: GFR Calc Estimated GFR (MDRD) Non-Af Amer 66 mL/min >60 [facility] Comment on above: Non- GFR Calc 31.6 pg 27.0-32.0 [facility] 33.6 g/dL 32-36 [facility] 207 K/mm3 150-450 [facility] 9.7 fl 6.2-12.0 [facility] 0 % 0-5 [facility] 66 mL/min >60 [facility] 80 mL/min >60 [facility] 77.81 ml/min [facility] 23.4 RATIO 10-20 [facility] 23.0 mmol/L 21.0-32.0 [facility] 73.6 pg/mL 0-100 [facility] RBC Auto (Bld) [#/Vol]Ordere d By: Allen Meraz on 08-02-2023 RBC (Bld) [#/Vol] 4.11 10*6/uL 4.2-5.4 [facility] Serum or plasma calcium oliver urement (mass/volume)Ordered By: Allen Meraz on 08-02-2023 Calcium [Mass/Vol] 9.3 mg/dL 8.5-10.[address] [facility] Serum or plasma creatinine m easurement (mass/volume)Ordered By: Allen Meraz on 08-02-2023 Creatinine [Mass/Vol] 0.94 mg/dL 0.55-1.02 [facility] Comment on above: The validity of the calculated GFR & GFRAA in patients over 70 years has not been determined. Clinical correlation is essential. Serum or plasma urea nitroge n measurement (mass/volume)Ordered By: Allen Meraz on 08-02-2023 Urea nitrogen [Mass/Vol] 22 mg/dL 7-18 [facility] Thin prep Papanicolaou smear with manual screeningOrdered By: Allen Meraz on 08-02-2023 Thin prep Papanicolaou smear with manual screening 6 5-15 [facility] Absolute lymphocyte countOrd ered By: Ryan Hidalgo on 05-18-2023 Lymphocytes Auto (Unsp spec) [#/Vol] 1.97 10*3/uL 0.83-4.51 [facility] Basophil percentageOrdered B y: Ryan Rocky on 05-18-2023 Basophil percentage 200 mg/dL 74-106 [facility] Basophil percentage 140 mmol/L 136-145 [facility] Basophil percentage 4.1 mmol/L 3.5-5.1 [facility] Basophil percentage 111 mmol/L 98-107 [facility] Basophils (Bld) [#/Vol] 4.6 10*3/uL 4.4-11.0 [facility] Basophils (Bld) [#/Vol] 2.3 10*3/uL 2.0-7.7 [facility] Basophils/100 WBC (Bld) 0.2 % 0-1 [facility] Basophils/100 WBC (Bld) 49.4 % 47-70 [facility] Basophils/100 WBC (Bld) 1.1 % 0-5 [facility] Chloride [Moles/Vol] 111 mmol/L 98-107 [facility] Eosinophils/100 WBC (Bld) 1.1 % 0-5 [facility] Glucose [Mass/Vol] 200 mg/dL 74-[address] [facility] Comment on above: Glucose result great er than or equal to 200 mg/dLsuggests DIABETES MELLITUS per A.D.A. criteria. Neutrophils (Bld) [#/Vol] 2.3 10*3/uL 2.0-7.7 [facility] Neutrophils/100 WBC (Bld) 49.4 % 47-70 [facility] Potassium [Moles/Vol] 4.1 mmol/L 3.5-5.1 [facility] Comment on above: Moderate Hemolysis, Result may be falsely increased. Sodium [Moles/Vol] 140 mmol/L 136-[address] [facility] WBC (Bld) [#/Vol] 4.6 10*3/uL 4.4-11.[address] [facility] Blood erythrocytes count (nu mber/volume)Ordered By: Ryan Hidalgo on 05-18-2023 RBC (Bld) [#/Vol] 4.25 10*6/uL 4.2-5.4 [facility] Blood hemoglobin measurement (mass/volume)Ordered By: Ryan Hidalgo on 05-18-2023 Hemoglobin (Bld) [Mass/Vol] 13.2 g/dL 12.0-15.0 [facility] Blood lymphocytes/100 leukoc ytesOrdered By: Ryan Hidalgo on 05-18-2023 Lymphocytes/100 WBC (Bld) 43.0 % 19-41 [facility] Blood monocytes/100 leukocyt esOrdered By: Ryan Hidalgo on 05-18-2023 Monocytes/100 WBC (Bld) 6.1 % 0-10 [facility] Blood platelet mean volumeOr dered By: Ryan Hidalgo on 05-18-2023 Platelet mean volume (Bld) [Entitic vol] 10.2 fL 6.2-12.0 [facility] Determination of erythrocyte mean corpuscular volume (MCV)Ordered By: Ryan Hidalgo on 05-18-2023 MCV (RBC) [Entitic vol] 95.5 fL 81-99 [facility] Glucose Glucometer (dC) [M ass/Vol]Ordered By: Ryan Hidalgo on 05-18-2023 Glucose [Mass/Vol] 97 mg/dL 74-[address] [facility] Comment on above: MANAGEMENT OF PATIEN T CARE PER NURSING PROTOCOL Hematocrit Auto (Bld) [Volum e fraction]Ordered By: Ryan Hidalgo on 05-18-2023 Hematocrit (Bld) [Volume fraction] 40.6 % 37-47 [facility] Laboratory - Chemistry and C hemistry - challengeOrdered By: Ryan Hidalgo on 05-18-2023 CO2 [Moles/Vol] 25.0 mmol/L 21.0-32.0 [facility] Natriuretic peptide B (Bld) [Mass/Vol] 49.0 pg/mL 0-100 [facility] Urea nitrogen/Creatinine [Mass ratio] 29.0 mg/mg 10-20 [facility] Laboratory - Hematology and Cell countsOrdered By: Ryan Hidalgo on 05-18-2023 Erythrocyte distribution width (RBC) [Entitic vol] 47.5 fL 35.1-43.9 [facility] Erythrocyte distribution width (RBC) [Ratio] 13.5 % 11.6-14.6 [facility] Immature granulocytes/100 WBC (Bld) 0.200 % 0.0-0.9 [facility] Comment on above: IG% - Immature Granu locytes (promyelocytes, myelocytes and metamyelocytes) > 1% indicates that a LEFT SHIFT is Present. MCH (RBC) [Entitic mass] 31.1 pg 27.0-32.0 [facility] Nucleated RBC/100 WBC (Bld) [Ratio] 0 % 0-5 [facility] MCHC Auto (RBC) [Mass/Vol]Or dered By: Ryan Hidalgo on 05-18-2023 MCHC (RBC) [Mass/Vol] 32.5 g/dL 32-36 [facility] No Panel InformationOrdered By: Ryan Hidalgo on 05-18-2023 Troponin I High Sensitivity 8 pg/mL 3.0-54.0 [facility] Comment on above: Please Note: [place] t Units and Gender Specific Reference Ranges. For more information see Policy Stat Procedure [facility] High Sensitivity Troponin (TNIH) and attachments. 8 pg/mL 3.0-54.0 [facility] Estimated Creatinine Clearance Calc 52.51 ml/min [facility] Estimated GFR (MDRD) Amer 69 mL/min >60 [facility] Comment on above: GFR Calc Estimated GFR (MDRD) Non-Af Amer 57 mL/min >60 [facility] Comment on above: Non- GFR Calc 31.1 pg 27.0-32.0 [facility] 13.5 % 11.6-14.6 [facility] 47.5 fl 35.1-43.9 [facility] 0.200 % 0.0-0.9 [facility] 0 % 0-5 [facility] 57 mL/min >60 [facility] 69 mL/min >60 [facility] 52.51 ml/min [facility] 29.0 RATIO 10-20 [facility] 25.0 mmol/L 21.0-32.0 [facility] 49.0 pg/mL 0-100 [facility] Platelets bldOrdered By: Liliya Hidalgo on 05-18-2023 Platelets (Bld) [#/Vol] 195 10*3/uL 150-450 [facility] Serum or plasma calcium oliver urement (mass/volume)Ordered By: Ryan Hidalgo on 05-18-2023 Calcium [Mass/Vol] 8.7 mg/dL 8.5-10.[address] [facility] Serum or plasma creatinine m easurement (mass/volume)Ordered By: Ryan Hidalgo on 05-18-2023 Creatinine [Mass/Vol] 1.07 mg/dL 0.55-1.02 [facility] Comment on above: The validity of the calculated GFR & GFRAA in patients over 70 years has not been determined. Clinical correlation is essential. Serum or plasma urea nitroge n measurement (mass/volume)Ordered By: Ryan Hidalgo on 05-18-2023 Urea nitrogen [Mass/Vol] 31 mg/dL 7-18 [facility] Thin prep Papanicolaou smear with manual screeningOrdered By: Ryan Hidalgo on 05-18-2023 Thin prep Papanicolaou smear with manual screening 4 - [facility] Laboratory - Hematology and Cell countson 05-11-2023 HbA1c (Bld) [Mass fraction] 9.5 % 4.2-6.3 [facility] Laboratory - Chemistry and C hemistry - challengeOrdered By: Mike Tom on 03-08-2023 Free T4 [Mass/Vol] 0.90 ng/dL 0.76-1.[address] [facility] Laboratory - Chemistry and C hemistry - challengeOrdered By: Cr Ho on 03-08-2023 Natriuretic peptide B (Bld) [Mass/Vol] 30.3 pg/mL 0-100 [facility] No Panel InformationOrdered By: Mike Tom on 03-08-2023 Free Triiodothyronine (T3) pg/dL 2.8 pg/mL 2.18-3.98 [facility] Thyroid Stimulating Hormone (TSH) 1.67 uIU/mL 0.358-3.74 [facility] Laboratory - Hematology and Cell countson 01-26-2023 HbA1c (Bld) [Mass fraction] 7.7 % 4.2-6.3 [facility] Laboratory - Drug toxicology Ordered By: Darline Solano on 12-20-2022 Amphetamines Ql (U) Negative <1000 ng/mL [facility] Benzodiazepines Ql (U) Negative < 200 ng/mL [facility] Cannabinoids Screen Ql (U) Negative < 50 ng/mL [facility] Cocaine Ql (U) Negative < 300 ng/mL [facility] Opiates Ql (U) Positive < 300 ng/mL [facility] No Panel InformationOrdered By: Darline Solano on 12-20-2022 MDMA (Ecstasy) Screen Negative < 500 ng/mL [facility] Urine Barbiturates Screen Negative < 200 ng/mL [facility] Urine Drug Screen Comment [facility] Comment on above: CONFIRMATORY TESTING FOR ALL POSITIVE URINE DRUG SCREENRESULTS WILL ONLY BE SENT OUT UPON PHYSICIAN ORDER. VISTA Urine Drug Screen methods provide only preliminaryanalytical test results. A more specific alternate chemicalmethod must be used in order to obtain a confirmedanalytical result. Gas chromatography/mass spectrometery(GC/MS) is the preferred confirmatory method. Clinicalconsideration and professional judgement should be appliedto any drug of abuse test result, particularly whenpreliminary positive results are used. URINE TCA TESTING MUST BE ORDERED SEPARATELY. USE TESTMNEMONIC: [facility] Urine Methadone Screen Negative < 300 ng/mL [facility] Urine phencyclidine (PCP) de tectionOrdered By: Darline Solano on 12-20-2022 Phencyclidine Ql (U) Negative < 25 ng/mL [facility] Absolute lymphocyte countOrd ered By: Dr. Alvarez on 10-18-2022 Lymphocytes Auto (Unsp spec) [#/Vol] 1.71 10*3/uL 0.83-4.51 [facility] Basophil percentageOrdered B y: Dr. Alvarez on 10-18-2022 Basophils/100 WBC (Bld) 0.4 % 0-1 [facility] Bilirubin [Mass/Vol] 0.80 mg/dL 0.20-1.00 [facility] Comment on above: For patients on eltr ombopag therapy, use of Dimension [place] TBIL is not recommended. Chloride [Moles/Vol] 113 mmol/L 98-107 [facility] Eosinophils/100 WBC (Bld) 0.5 % 0-5 [facility] Glucose [Mass/Vol] 127 mg/dL 74-[address] [facility] Comment on above: Fasting Glucose resu lt greater than or equal to 126 mg/dL suggests DIABETES MELLITUS per A.D.A. criteria. Neutrophils (Bld) [#/Vol] 5.1 10*3/uL 2.0-7.7 [facility] Neutrophils/100 WBC (Bld) 68.5 % 47-70 [facility] Potassium [Moles/Vol] 3.7 mmol/L 3.5-5.1 [facility] Protein [Mass/Vol] 8.0 g/dL 6.4-8.[address] [facility] Sodium [Moles/Vol] 142 mmol/L 136-[address] [facility] WBC (Bld) [#/Vol] 7.4 10*3/uL 4.4-11.[address] [facility] Blood erythrocytes count (nu mber/volume)Ordered By: Dr. Alvarez on 10-18-2022 RBC (Bld) [#/Vol] 4.21 10*6/uL 4.2-5.4 [facility] Blood hemoglobin measurement (mass/volume)Ordered By: Dr. Alvarez on 10-18-2022 Hemoglobin (Bld) [Mass/Vol] 13.2 g/dL 12.0-15.0 [facility] Blood lymphocytes/100 leukoc ytesOrdered By: Dr. Alvarez on 10-18-2022 Lymphocytes/100 WBC (Bld) 23.1 % 19-41 [facility] Blood monocytes/100 leukocyt esOrdered By: Dr. Alvarez on 10-18-2022 Monocytes/100 WBC (Bld) 7.4 % 0-10 [facility] Blood platelet mean volumeOr dered By: Dr. Alvarez on 10-18-2022 Platelet mean volume (Bld) [Entitic vol] 9.5 fL 6.2-12.0 [facility] Determination of erythrocyte mean corpuscular volume (MCV)Ordered By: Dr. Alvarez on 10-18-2022 MCV (RBC) [Entitic vol] 97.9 fL 81-99 [facility] Hematocrit Auto (Bld) [Volum e fraction]Ordered By: Dr. Alvarez on 10-18-2022 Hematocrit (Bld) [Volume fraction] 41.2 % 37-47 [facility] Laboratory - Chemistry and C hemistry - challengeOrdered By: Dr. Alvarez on 10-18-2022 ALP [Catalytic activity/Vol] 107 U/L 45-117 [facility] ALT [Catalytic activity/Vol] 19 U/L 13-56 [facility] CO2 [Moles/Vol] 22.0 mmol/L 21.0-32.0 [facility] Globulin (S) [Mass/Vol] 4.0 g/dL 2.2-4.2 [facility] Lipase [Catalytic activity/Vol] 49 U/L 13-75 [facility] Comment on above: Please note:LIPASE r evised reference range effective 22. New Lipase methodology. Expected to produce lower values than the previous assay method. NEW Reference Range: 13 - 75 U/L Urea nitrogen/Creatinine [Mass ratio] 43.4 mg/mg 10-20 [facility] Laboratory - Hematology and Cell countsOrdered By: Dr. Alvarez on 10-18-2022 Erythrocyte distribution width (RBC) [Entitic vol] 51.3 fL 35.1-43.9 [facility] Erythrocyte distribution width (RBC) [Ratio] 14.6 % 11.6-14.6 [facility] Immature granulocytes/100 WBC (Bld) 0.100 % 0.0-0.9 [facility] Comment on above: IG% - Immature Granu locytes (promyelocytes, myelocytes and metamyelocytes) > 1% indicates that a LEFT SHIFT is Present. MCH (RBC) [Entitic mass] 31.4 pg 27.0-32.0 [facility] Nucleated RBC/100 WBC (Bld) [Ratio] 0 % 0-5 [facility] MCHC Auto (RBC) [Mass/Vol]Or dered By: Dr. Alvarez on 10-18-2022 MCHC (RBC) [Mass/Vol] 32.0 g/dL 32-36 [facility] No Panel InformationOrdered By: Dr. Alvarez on 10-18-2022 Estimated Creatinine Clearance Calc 70.16 ml/min [facility] Estimated GFR (MDRD) Amer 96 mL/min >60 [facility] Comment on above: GFR Calc Estimated GFR (MDRD) Non-Af Amer 79 mL/min >60 [facility] Comment on above: Non- GFR Calc Platelets bldOrdered By: Dr. Alvarez on 10-18-2022 Platelets (Bld) [#/Vol] 231 10*3/uL 150-450 [facility] Serum or plasma albumin oliver urement (mass/volume)Ordered By: Dr. Alvarez on 10-18-2022 Albumin [Mass/Vol] 4.0 g/dL 3.2-5.[address] [facility] Serum or plasma albumin/glob ulin mass ratioOrdered By: Dr. Alvarez on 10-18-2022 Albumin/Globulin [Mass ratio] 1.0 {ratio} 0.9-2.4 [facility] Serum or plasma calcium oliver urement (mass/volume)Ordered By: Dr. Alvarez on 10-18-2022 Calcium [Mass/Vol] 9.1 mg/dL 8.5-10.[address] [facility] Serum or plasma creatinine m easurement (mass/volume)Ordered By: Dr. Alvarez on 10-18-2022 Creatinine [Mass/Vol] 0.81 mg/dL 0.55-1.02 [facility] Comment on above: The validity of the calculated GFR & GFRAA in patients over 70 years has not been determined. Clinical correlation is essential. Serum or plasma urea nitroge n measurement (mass/volume)Ordered By: Dr. Alvarez on 10-18-2022 Urea nitrogen [Mass/Vol] 35 mg/dL -18 [facility] Thin prep Papanicolaou smear with manual screeningOrdered By: Dr. Alvarez on 10-18-2022 Thin prep Papanicolaou smear with manual screening 14 U/L 15-37 [facility] Thin prep Papanicolaou smear with manual screening 7 -15 [facility] Absolute lymphocyte countOrd ered By: Dr. Meraz on 10-07-2022 Lymphocytes Auto (Unsp spec) [#/Vol] 2.01 10*3/uL 0.83-4.51 [facility] Basophil percentageOrdered B y: Dr. Meraz on 10-07-2022 Basophils/100 WBC (Bld) 0.3 % 0-1 [facility] Bilirubin [Mass/Vol] 0.40 mg/dL 0.20-1.00 [facility] Comment on above: For patients on eltr ombopag therapy, use of Dimension [place] TBIL is not recommended. Chloride [Moles/Vol] 112 mmol/L 98-107 [facility] Eosinophils/100 WBC (Bld) 1.7 % 0-5 [facility] Glucose [Mass/Vol] 216 mg/dL 74-[address] [facility] Comment on above: Glucose result great er than or equal to 200 mg/dLsuggests DIABETES MELLITUS per A.D.A. criteria. Neutrophils (Bld) [#/Vol] 3.3 10*3/uL 2.0-7.7 [facility] Neutrophils/100 WBC (Bld) 56.2 % 47-70 [facility] Potassium [Moles/Vol] 3.9 mmol/L 3.5-5.1 [facility] Protein [Mass/Vol] 6.5 g/dL 6.4-8.[address] [facility] Sodium [Moles/Vol] 143 mmol/L 136-[address] [facility] WBC (Bld) [#/Vol] 5.8 10*3/uL 4.4-11.[address] [facility] Blood erythrocytes count (nu mber/volume)Ordered By: Dr. Meraz on 10-07-2022 RBC (Bld) [#/Vol] 4.09 10*6/uL 4.2-5.4 [facility] Blood hemoglobin measurement (mass/volume)Ordered By: Dr. Meraz on 10-07-2022 Hemoglobin (Bld) [Mass/Vol] 12.6 g/dL 12.0-15.0 [facility] Blood lymphocytes/100 leukoc ytesOrdered By: Dr. Meraz on 10-07-2022 Lymphocytes/100 WBC (Bld) 34.7 % 19-41 [facility] Blood monocytes/100 leukocyt esOrdered By: Dr. Meraz on 10-07-2022 Monocytes/100 WBC (Bld) 6.6 % 0-10 [facility] Blood platelet mean volumeOr dered By: Dr. Meraz on 10-07-2022 Platelet mean volume (Bld) [Entitic vol] 9.8 fL 6.2-12.0 [facility] Determination of erythrocyte mean corpuscular volume (MCV)Ordered By: Dr. Meraz on 10-07-2022 MCV (RBC) [Entitic vol] 94.9 fL 81-99 [facility] Hematocrit Auto (Bld) [Volum e fraction]Ordered By: Dr. Meraz on 10-07-2022 Hematocrit (Bld) [Volume fraction] 38.8 % 37-47 [facility] Laboratory - Chemistry and C hemistry - challengeOrdered By: Dr. Meraz on 10-07-2022 ALP [Catalytic activity/Vol] 92 U/L 45-117 [facility] ALT [Catalytic activity/Vol] 19 U/L 13-56 [facility] CO2 [Moles/Vol] 23.0 mmol/L 21.0-32.0 [facility] Globulin (S) [Mass/Vol] 3.3 g/dL 2.2-4.2 [facility] Lipase [Catalytic activity/Vol] 34 U/L 13-75 [facility] Comment on above: Please note:LIPASE r evised reference range effective 22. New Lipase methodology. Expected to produce lower values than the previous assay method. NEW Reference Range: 13 - 75 U/L Urea nitrogen/Creatinine [Mass ratio] 19.0 mg/mg 10-20 [facility] Laboratory - Hematology and Cell countsOrdered By: Dr. Meraz on 10-07-2022 Erythrocyte distribution width (RBC) [Entitic vol] 45.7 fL 35.1-43.9 [facility] Erythrocyte distribution width (RBC) [Ratio] 13.3 % 11.6-14.6 [facility] Immature granulocytes/100 WBC (Bld) 0.500 % 0.0-0.9 [facility] Comment on above: IG% - Immature Granu locytes (promyelocytes, myelocytes and metamyelocytes) > 1% indicates that a LEFT SHIFT is Present. MCH (RBC) [Entitic mass] 30.8 pg 27.0-32.0 [facility] Nucleated RBC/100 WBC (Bld) [Ratio] 0 % 0-5 [facility] MCHC Auto (RBC) [Mass/Vol]Or dered By: Dr. Meraz on 10-07-2022 MCHC (RBC) [Mass/Vol] 32.5 g/dL 32-36 [facility] No Panel InformationOrdered By: Dr. Meraz on 10-07-2022 Estimated Creatinine Clearance Calc 63.85 ml/min [facility] Estimated GFR (MDRD) Amer 85 mL/min >60 [facility] Comment on above: GFR Calc Estimated GFR (MDRD) Non-Af Amer 70 mL/min >60 [facility] Comment on above: Non- GFR Calc Ethyl Alcohol Level 4.0 mg/dL [facility] Comment on above: The serum:whole bloo d ethanol ratio is approximately 1.14and varies slightly with hematocrit. Medical Alcohol reference interval and critical value innon-tolerant individuals; 50 - 100 Impairment 100 Intoxication 100 - 250 Severe Poisoning 250 - 400 Deep/possible fatal coma Troponin I High Sensitivity 8 pg/mL 3.0-54.0 [facility] Comment on above: Please Note: New [place] t Units and Gender Specific Reference Ranges. For more information see Policy Stat Procedure [facility] High Sensitivity Troponin (TNIH) and attachments. Platelets bldOrdered By: Dr. Meraz on 10-07-2022 Platelets (Bld) [#/Vol] 166 10*3/uL 150-450 [facility] Serum or plasma albumin oliver urement (mass/volume)Ordered By: Dr. Meraz on 10-07-2022 Albumin [Mass/Vol] 3.2 g/dL 3.2-5.[address] [facility] Serum or plasma albumin/glob ulin mass ratioOrdered By: Dr. Meraz on 10-07-2022 Albumin/Globulin [Mass ratio] 1.0 {ratio} 0.9-2.4 [facility] Serum or plasma calcium oliver urement (mass/volume)Ordered By: Dr. Meraz on 10-07-2022 Calcium [Mass/Vol] 8.7 mg/dL 8.5-10.[address] [facility] Serum or plasma creatinine m easurement (mass/volume)Ordered By: Dr. Meraz on 10-07-2022 Creatinine [Mass/Vol] 0.89 mg/dL 0.55-1.02 [facility] Comment on above: The validity of the calculated GFR & GFRAA in patients over 70 years has not been determined. Clinical correlation is essential. Serum or plasma urea nitroge n measurement (mass/volume)Ordered By: Dr. Meraz on 10-07-2022 Urea nitrogen [Mass/Vol] 17 mg/dL 7-18 [facility] Thin prep Papanicolaou smear with manual screeningOrdered By: Dr. Meraz on 10-07-2022 Thin prep Papanicolaou smear with manual screening 15 U/L 15-37 [facility] Thin prep Papanicolaou smear with manual screening 8 5-15 [facility] Basophil percentageOrdered B y: Bryan Mitchell on 10-01-2022 Chloride [Moles/Vol] 111 mmol/L 98-107 [facility] Glucose [Mass/Vol] 187 mg/dL 74-[address] [facility] Comment on above: Fasting Glucose resu lt greater than or equal to 126 mg/dL suggests DIABETES MELLITUS per A.D.A. criteria. Potassium [Moles/Vol] 3.5 mmol/L 3.5-5.1 [facility] Sodium [Moles/Vol] 137 mmol/L 136-[address] [facility] Laboratory - Chemistry and C hemistry - challengeOrdered By: Bryan Mitchell on 10-01-2022 CO2 [Moles/Vol] 25.0 mmol/L 21.0-32.0 [facility] Urea nitrogen/Creatinine [Mass ratio] 22.4 mg/mg 10-20 [facility] No Panel InformationOrdered By: Bryan Mitchell on 10-01-2022 Estimated GFR (MDRD) Amer 96 mL/min >60 [facility] Comment on above: GFR Calc Estimated GFR (MDRD) Non-Af Amer 79 mL/min >60 [facility] Comment on above: Non- GFR Calc Serum or plasma calcium oliver urement (mass/volume)Ordered By: Bryan Mitchell on 10-01-2022 Calcium [Mass/Vol] 8.8 mg/dL 8.5-10.[address] [facility] Serum or plasma creatinine m easurement (mass/volume)Ordered By: Bryan Mitchell on 10-01-2022 Creatinine [Mass/Vol] 0.80 mg/dL 0.55-1.02 [facility] Comment on above: The validity of the calculated GFR & GFRAA in patients over 70 years has not been determined. Clinical correlation is essential. Serum or plasma urea nitroge n measurement (mass/volume)Ordered By: Bryan Mitchell on 10-01-2022 Urea nitrogen [Mass/Vol] 18 mg/dL 7-18 [facility] Thin prep Papanicolaou smear with manual screeningOrdered By: Bryan Mitchell on 10-01-2022 Thin prep Papanicolaou smear with manual screening 1 5-15 [facility] Laboratory - Hematology and Cell countson 09-23-2022 HbA1c (Bld) [Mass fraction] 8.6 % 4.2-6.3 [facility] BETA HCG, QUANT, BLOODon HCG (Quant) Serum 7.8 mIU/mL Normal [facility] Comment on above: Result Comment: Non- : <10 mIU/mL Postmenopause: <10 mIU/mL Male: <10 mIU/mL FEMALE GESTATIONAL AGE 2-4 Weeks: 39.1-8,388 mIU/mL 5-6 Weeks: 861-88,769 mIU/mL 6-8 Weeks: 8,636-218,085 mIU/mL 8-10 Weeks: 18,700-244,467 mIU/mL 10-12 Weeks: 23,143-181,899 mIU/mL 13-27 Weeks: 6,303-97,171 mIU/mL 24-40 Weeks: 4,360-74,883 mIU/mL Test results cannot be interpreted as absolute evidence for the presence or absence of malignant disease. Performed By: #### Q HCGB, CRP #### [facility] (DEFAULT) [address] [address] BLOOD CULTUREon 09-20-2022 Bacteria identified Cx Nom (Unsp spec) NO GROWTH DAY 5 OF 5 Normal [facility] Comment on above: Order Comment: 2 Bot tles (1 Set - consists of 1 Aerobic bottle and 1 Anaerobic bottle) -1st Peripheral DrawFor syringe method draw:If able to obtain adequate sample (20 ml) inoculate anaerobic bottle firstIf inadequate sample obtained (less than 20 ml) inoculate aerobic bottle firstFor vacutainer method draw: Fill aerobic bottle first, then anaerobic Performed By: #### P TPTT #### [facility] (DEFAULT) [address] [address] Bacteria identified Cx Nom (Unsp spec) NO GROWTH DAY 5 OF 5 Normal [facility] Comment on above: Order Comment: 2 Bot tles (1 Set - consists of 1 Aerobic bottle and 1 Anaerobic bottle) - 1st Peripheral Draw For syringe method draw: If able to obtain adequate sample (20 ml) inoculate anaerobic bottle first If inadequate sample obtained (less than 20 ml) inoculate aerobic bottle first For vacutainer method draw: Fill aerobic bottle first, then anaerobic Performed By: #### B LDCULT #### [facility] (DEFAULT) [address] [address] C REACTIVE PROTEINon 023 CRP [Mass/Vol] 8.00 mg/L Normal <10.00 [facility] Comment on above: Performed By: #### Q HCGB, CRP #### [facility] (DEFAULT) [address] [address] CRP High sensitivity method [Mass/Vol] 8.00 mg/L NINF - 10.00 mg/L [facility] Interpretation and review of laboratory results Normal [facility] CBC AND ELECTRONIC DIFFon Abs Baso Auto < Normal 0.00-0.15 [facility] Comment on above: Performed By: #### L [id number] #### [facility] (DEFAULT) [address] [address] Basophils/100 WBC (Bld) 0.4 % Normal [facility] Comment on above: Performed By: #### L [id number] #### [facility] (DEFAULT) [address] [address] DIFF STATUS Electronic Differential Normal [facility] Comment on above: Performed By: #### L [id number] #### [facility] (DEFAULT) [address] [address] Eosinophils (Bld) [#/Vol] 0.08 10*3/uL Normal 0.00-0.42 [facility] Comment on above: Performed By: #### L [id number] #### [facility] (DEFAULT) [address] [address] Eosinophils/100 WBC (Bld) 1.1 % Normal [facility] Comment on above: Performed By: #### L [id number] #### [facility] (DEFAULT) [address] [address] Hematocrit (Bld) [Volume fraction] 42.8 % Normal 34.9-44.3 [facility] Comment on above: Performed By: #### L [id number] #### [facility] (DEFAULT) [address] [address] Hemoglobin (Bld) [Mass/Vol] 14.3 g/dL Normal 11.4-15.2 [facility] Comment on above: Performed By: #### L [id number] #### [facility] (DEFAULT) [address] [address] Immature Grans % 0.3 % Normal [facility] Comment on above: Performed By: #### L [id number] #### [facility] (DEFAULT) [address] [address] Immature Grans Absolute < Normal <=0.08 [facility] Comment on above: Performed By: #### L [id number] #### [facility] (DEFAULT) [address] [address] Lymphocytes (Bld) [#/Vol] 2.40 10*3/uL Normal 1.16-3.51 [facility] Comment on above: Performed By: #### L [id number] #### [facility] (DEFAULT) [address] [address] Lymphocytes/100 WBC (Bld) 33.9 % Normal [facility] Comment on above: Performed By: #### L [id number] #### [facility] (DEFAULT) [address] [address] MCV (RBC) [Entitic vol] 93.7 fL Normal 79.6-97.7 [facility] Comment on above: Performed By: #### L [id number] #### [facility] (DEFAULT) [address] [place] [address] Mean Cell Hgb 31.3 pg Normal 25.9-33.9 [facility] Comment on above: Performed By: #### L [id number] #### [facility] (DEFAULT) [address] [place] [address] Mean Cell Hgb Conc 33.4 g/dL Normal 31.4-35.9 [facility] Comment on above: Performed By: #### L [id number] #### [facility] (DEFAULT) [address] [place] [address]3566 Monocytes (Bld) [#/Vol] 0.47 10*3/uL Normal 0.22-0.87 [facility] Comment on above: Performed By: #### L [id number] #### [facility] (DEFAULT) [address] [place] [address]807 Monocytes/100 WBC (Bld) 6.6 % Normal [facility] Comment on above: Performed By: #### L [id number] #### [facility] (DEFAULT) [address] [place] [address]162 Nucleated RBC 0.0 /100 WBC Normal <=0.2 [facility] Comment on above: Performed By: #### L [id number] #### [facility] (DEFAULT) [address] [place] [address]791 Platelet mean volume (Bld) [Entitic vol] 10.0 fL Normal 8.5-12.2 [facility] Comment on above: Performed By: #### L [id number] #### [facility] (DEFAULT) [address] [place] [address] Platelets (Bld) [#/Vol] 172 10*3/uL Normal 150-393 [facility] Comment on above: Performed By: #### L [id number] #### [facility] (DEFAULT) [address] [place] [address]474 RBC (Bld) [#/Vol] 4.57 10*6/uL Normal 3.91-5.04 [facility] Comment on above: Performed By: #### L [id number] #### [facility] (DEFAULT) [address] [place] [address] 29859 RBC Distribution 13.3 % Normal 10.8-14.9 [facility] Comment on above: Performed By: #### L [id number] #### [facility] (DEFAULT) [address] [place] [address]27 Segs + Bands Auto 57.7 % Normal [facility] Comment on above: Performed By: #### L [id number] #### [facility] (DEFAULT) [address] [address] Segs + Bands,Absolute Auto 4.07 K/uL Normal 1.64-7.28 [facility] Comment on above: Performed By: #### L [id number] #### [facility] (DEFAULT) [address] [address] WBC (Bld) [#/Vol] 7.07 10*3/uL Normal 3.99-11.19 [facility] Comment on above: Performed By: #### L [id number] #### [facility] (DEFAULT) [address] [place] [address] Basophils (Bld) [#/Vol] K/uL 0.00 - 0.15 K/uL [facility] Basophils/100 WBC (Bld) 0.4 % [facility] Differential cell count method Nom (Bld) Electronic Differential O [facility] Eosinophils (Bld) [#/Vol] 0.08 10*3/uL 0.00 - 0.42 K/uL [facility] Eosinophils/100 WBC (Bld) 1.1 % [facility] Erythrocyte distribution width (RBC) [Ratio] 13.3 % 10.8 - 14.9 % [facility] Hematocrit (Bld) [Volume fraction] 42.8 % 34.9 - 44.3 % [facility] Hemoglobin (Bld) [Mass/Vol] 14.3 g/dL 11.4 - 15.2 g/dL [facility] Immature granulocytes (Bld) [#/Vol] K/uL NINF - 0.08 K/uL [facility] Immature granulocytes/100 WBC (Bld) 0.3 % [facility] Lymphocytes (Bld) [#/Vol] 2.40 10*3/uL 1.16 - 3.51 K/uL [facility] Lymphocytes/100 WBC (Bld) 33.9 % [facility] MCH (RBC) [Entitic mass] 31.3 pg 25.9 - 33.9 pg [facility] MCHC (RBC) [Mass/Vol] 33.4 g/dL 31.4 - 35.9 g/dL [facility] MCV (RBC) [Entitic vol] 93.7 fL 79.6 - 97.7 fL [facility] Monocytes (Bld) [#/Vol] 0.47 10*3/uL 0.22 - 0.87 K/uL [facility] Monocytes/100 WBC (Bld) 6.6 % [facility] Neutrophils (Bld) [#/Vol] 4.07 10*3/uL 1.64 - 7.28 K/uL [facility] Nucleated RBC/100 WBC (Bld) [Ratio] 0.0 % [facility] Platelet mean volume (Bld) [Entitic vol] 10.0 fL 8.5 - 12.2 fL [facility] Platelets (Bld) [#/Vol] 172 10*3/uL 150 - 393 K/uL [facility] RBC (Bld) [#/Vol] 4.57 10*6/uL [facility] Segmented neutrophils/100 WBC (Bld) 57.7 % [facility] WBC (Bld) [#/Vol] 7.07 10*3/uL 3.99 - 11.19 K/uL [facility] CHM 7 - EDon 09-20-2022 Anion gap [Moles/Vol] 12 mmol/L Normal 7-17 [facility] Comment on above: Performed By: #### H CARLY C7ED #### [facility] (DEFAULT) [address] [place] [address] Chloride [Moles/Vol] 108 mmol/L Normal 98-108 [facility] Comment on above: Performed By: #### H CARLY, C7ED #### [facility] (DEFAULT) [address] [place] [address] CO2 [Moles/Vol] 20 mmol/L Low 21-31 [facility] Comment on above: Performed By: #### H CARLY C7ED #### [facility] (DEFAULT) [address] [place] [address] Creatinine [Mass/Vol] 0.80 mg/dL Normal 0.50-1.20 [facility] Comment on above: Performed By: #### Tip CARROLL C7ED #### [facility] (DEFAULT) [address] [place] [address] GFR/1.73 sq M.predicted among non-blacks MDRD (S/P/Bld) [Vol rate/Area] 89 mL/min/{1.73_m2} Normal >=60 [facility] Comment on above: Result Comment: Repo rted eGFR is based on the CKD-EPI 2020 equation using creatinine, age, and sex. Performed By: #### H CARLY C7ED #### [facility] (DEFAULT) [address] [place] [address] Glucose [Mass/Vol] 194 mg/dL High 70-99 [facility] Comment on above: Performed By: #### H CARLY C7ED #### [facility] (DEFAULT) [address] [place] [address] Osmolality [Osmolality] 294 mosm/kg Normal 278-305 [facility] Comment on above: Performed By: #### H CARLY C7ED #### [facility] (DEFAULT) [address] [place] [address] Potassium [Moles/Vol] 3.9 mmol/L Normal 3.5-5.0 [facility] Comment on above: Performed By: #### H FP, C7ED #### [facility] (DEFAULT) [address] [place] [address] Sodium [Moles/Vol] 136 mmol/L Normal 135-145 [facility] Comment on above: Performed By: #### H CARLY, C7ED #### [facility] (DEFAULT) [address] [place] [address]87 Urea nitrogen [Mass/Vol] 20 mg/dL Normal 7-25 [facility] Comment on above: Performed By: #### H CARLY, C7ED #### [facility] (DEFAULT) [address] [place] [address]20 Urea nitrogen/Creatinine [Mass ratio] 25 mg/mg Normal [facility] Comment on above: Performed By: #### Tip CARROLL, C7ED #### [facility] (DEFAULT) [address] [place] [address]81 Anion gap [Moles/Vol] 12 mmol/L 7 - 17 mmol/L [facility] Chloride [Moles/Vol] 108 mmol/L 98 - 10 8 mmol/L [facility] CO2 [Moles/Vol] 20 mmol/L Low 21 - 31 mmol/L [facility] Creatinine [Mass/Vol] 0.80 mg/dL 0.50 - 1.20 mg/dL [facility] GFR/1.73 sq M.predicted CKD-EPI (S/P/Bld) [Vol rate/Area] 89 - PINF [facility] Comment on above: Reported eGFR is bas ed on the CKD-EPI 2020 equation using creatinine, age, and sex. Glucose [Mass/Vol] 194 mg/dL High 70 - 99 mg/dL [facility] Interpretation and review of laboratory results Abnormal [facility] Osmolality Calc [Osmolality] 294 [facility] Potassium [Moles/Vol] 3.9 mmol/L 3.5 - 5.0 mmol/L [facility] Sodium [Moles/Vol] 136 mmol/L 135 - 145 mmol/L [facility] Urea nitrogen [Mass/Vol] 20 mg/dL 7 - 25 mg/dL [facility] Urea nitrogen/Creatinine [Mass ratio] 25 mg/mg [facility] CT CHEST WITH CONTRASTon CT CHEST WITH CONTRAST EXAM: CT CHEST WI TH CONTRAST, 09/20/2022 18:06 PM COMPARISON: No Available Comparisons. CLINICAL INDICATIONS: left chest and arm pain, recurrent surgical site infection; TECHNIQUE: CT images of the chest were obtained following administration of intravenous contrast. CONTRAST: iohexol (OMNIPAQUE) 350 MG/ML injection 1-171 mL; Route of Administration: Intravenous; Dose: 50 mL. FINDINGS: Lungs and Pleura: There is a nonspecific 5 mm nodule in the right middle lobe. Mild chronic appearing peripheral reticular changes in the bases. No consolidation. No pleural fluid. Tracheobronchial tree: No abnormality. Mediastinum/Sarai: No mediastinal or hilar lymphadenopathy. Axilla and Supraclavicular Region: No axillary or supraclavicular adenopathy. Cardiovascular: ICD in place. Patent aorta and pulmonary arteries. Vascular calcifications. Upper Abdomen: Hepatic steatosis. Postcholecystectomy. Bones and Soft Tissue: Degenerative changes of spine. Partially visualized spinal stimulator. IMPRESSION: No acute process in the chest. I personally viewed and interpreted these images and I have reviewed and approved this report. Normal [facility] CT Chest W contrast Esthela IMPRESSION: No acute process in the chest. I personally viewed and interpreted these images and I have reviewed and approved this report. OLOGY EXAM: CT CHEST WITH CONTRAST, 09/20/2022 18:06 PM COMPARISON: No Available Comparisons. CLINICAL INDICATIONS: left chest and arm pain, recurrent surgical site infection; TECHNIQUE: CT images of the chest were obtained following administration of intravenous contrast. CONTRAST: iohexol (OMNIPAQUE) 350 MG/ML injection 1-171 mL; Route of Administration: Intravenous; Dose: 50 mL. FINDINGS: Lungs and Pleura: There is a nonspecific 5 mm nodule in the right middle lobe. Mild chronic appearing peripheral reticular changes in the bases. No consolidation. No pleural fluid. Tracheobronchial tree: No abnormality. Mediastinum/Sarai: No mediastinal or hilar lymphadenopathy. Axilla and Supraclavicular Region: No axillary or supraclavicular adenopathy. Cardiovascular: ICD in place. Patent aorta and pulmonary arteries. Vascular calcifications. Upper Abdomen: Hepatic steatosis. Postcholecystectomy. Bones and Soft Tissue: Degenerative changes of spine. Partially visualized spinal stimulator. RADIOLOGY Brady Morgan MD - 09/20/2022 EXAM: CT CHEST WITH CONTRAST, 09/20/2022 18:06 PM COMPARISON: No Available Comparisons. CLINICAL INDICATIONS: left chest and arm pain, recurrent surgical site infection; TECHNIQUE: CT images of the chest were obtained following administration of intravenous contrast. CONTRAST: iohexol (OMNIPAQUE) 350 MG/ML injection 1-171 mL; Route of Administration: Intravenous; Dose: 50 mL. FINDINGS: Lungs and Pleura: There is a nonspecific 5 mm nodule in the right middle lobe. Mild chronic appearing peripheral reticular changes in the bases. No consolidation. No pleural fluid. Tracheobronchial tree: No abnormality. Mediastinum/Sarai: No mediastinal or hilar lymphadenopathy. Axilla and Supraclavicular Region: No axillary or supraclavicular adenopathy. Cardiovascular: ICD in place. Patent aorta and pulmonary arteries. Vascular calcifications. Upper Abdomen: Hepatic steatosis. Postcholecystectomy. Bones and Soft Tissue: Degenerative changes of spine. Partially visualized spinal stimulator. IMPRESSION IMPRESSION: No acute process in the chest. I personally viewed and interpreted these images and I have reviewed and approved this report. [facility] Radiology Study observation (narrative) [facility] CT Chest W contrast IVOrdere d By: Brady Morgan on 09-20-2022 [facility] Work Phone: HCG ( test) Qlon HCG.beta subunit [Moles/Vol] 7.8 mmol/L mIU/mL [facility] Comment on above: Non-: <10 mI U/mL Postmenopause: <10 mIU/mL Male: <10 mIU/mL FEMALE GESTATIONAL AGE 2-4 Weeks: 39.1-8,388 mIU/mL 5-6 Weeks: 861-88,769 mIU/mL 6-8 Weeks: 8,636-218,085 mIU/mL 8-10 Weeks: 18,700-244,467 mIU/mL 10-12 Weeks: 23,143-181,899 mIU/mL 13-27 Weeks: 6,303-97,171 mIU/mL 24-40 Weeks: 4,360-74,883 mIU/mL Test results cannot be interpreted as absolute evidence for the presence or absence of malignant disease. [facility] HEPATIC FUNCTION PANELon Albumin [Mass/Vol] 4.5 g/dL Normal 3.5-5.0 [facility] Comment on above: Performed By: #### H CARLY, C7ED #### [facility] (DEFAULT) [address] [place] [address] ALP [Catalytic activity/Vol] 92 U/L Normal 32-126 [facility] Comment on above: Performed By: #### Tip CARROLL, C7ED #### [facility] (DEFAULT) [address] [place] [address]131 ALT [Catalytic activity/Vol] 9 U/L Normal 9-48 [facility] Comment on above: Performed By: #### H CARLY, C7ED #### [facility] (DEFAULT) [address] [place] [address] 26445 AST [Catalytic activity/Vol] 12 U/L Normal 10-39 [facility] Comment on above: Performed By: #### H CARLY, C7ED #### [facility] (DEFAULT) [address] [place] [address]349 Bilirubin [Mass/Vol] 0.6 mg/dL Normal <1.5 [facility] Comment on above: Performed By: #### H CARLY, C7ED #### [facility] (DEFAULT) [address] [place] [address] Bilirubin.indirect [Mass/Vol] 0.1 mg/dL Normal <0.3 [facility] Comment on above: Performed By: #### H CARLY, C7ED #### [facility] (DEFAULT) [address] [place] [address]402 Protein [Mass/Vol] 7.2 g/dL Normal 6.4-8.3 [facility] Comment on above: Performed By: #### H CARLY, C7ED #### [facility] (DEFAULT) [address] [place] [address] 77929 Albumin [Mass/Vol] 4.5 g/dL 3.5 - 5.0 g/dL [facility] ALP [Catalytic activity/Vol] 92 U/L 32 - 126 U/L [facility] ALT [Catalytic activity/Vol] 9 U/L 9 - 48 U/L [facility] AST [Catalytic activity/Vol] 12 U/L 10 - 39 U/L [facility] Bilirubin [Mass/Vol] 0.6 mg/dL [facility] - 1.5 mg/dL [facility] Bilirubin.direct [Mass/Vol] 0.1 mg/dL [facility] - 0.3 mg/dL [facility] Interpretation and review of laboratory results Normal [facility] Protein [Mass/Vol] 7.2 g/dL 6.4 - 8.3 g/dL [facility] LACTATE, INITIALon 3 0 Hour Lacate 1.3 mmol/L Normal 0.5-1.6 [facility] Comment on above: Performed By: #### L ABLACTINT #### [facility] (DEFAULT) [address] [place] [address] Interpretation and review of laboratory results Normal [facility] Lactate [Moles/Vol] 1.3 mmol/L 0.5 - 1. 6 mmol/L [facility] No Panel Informationon 09-20 [facility] XR CHEST PA AND LATERALon XR CHEST PA AND LATERAL EXAM: XR CHEST PA AND LATERAL, 09/20/2022 15:27 PM COMPARISON: Chest radiograph dated 08/18/2022 CLINICAL INDICATIONS: Concern for lung infection FINDINGS: (Adequate technique) Implanted Devices: Stable left subclavian biventricular pacemaker Spinal Cord Stimulator partially visualized.. Lungs: Clear, without mass, interstitial disease, or consolidation. Pleural Spaces: No pleural effusion. No pneumothorax. Mediastinum and Sarai: Normal Cardiac silhouette and great vessels: Normal heart size. Unremarkable aorta. Chest Wall: Degenerative changes of the thoracic spine. Abdominal surgical clips within the right upper quadrant. IMPRESSION: No acute cardiopulmonary disease I personally viewed and interpreted these images and I have reviewed and approved this report. Normal [facility] XR Chest PA and Lateralon IMPRESSION: No acute cardiopulmonary disease I personally viewed and interpreted these images and I have reviewed and approved this report. OLOGY EXAM: XR CHEST PA AN D LATERAL, 09/20/2022 15:27 PM COMPARISON: Chest radiograph dated 08/18/2022 CLINICAL INDICATIONS: Concern for lung infection FINDINGS: (Adequate technique) Implanted Devices: Stable left subclavian biventricular pacemaker Spinal Cord Stimulator partially visualized.. Lungs: Clear, without mass, interstitial disease, or consolidation. Pleural Spaces: No pleural effusion. No pneumothorax. Mediastinum and Sarai: Normal Cardiac silhouette and great vessels: Normal heart size. Unremarkable aorta. Chest Wall: Degenerative changes of the thoracic spine. Abdominal surgical clips within the right upper quadrant. RADIOLOGY Aidan Kent MD - 09/20/2022 EXAM: XR CHEST PA AND LATERAL, 09/20/2022 15:27 PM COMPARISON: Chest radiograph dated 08/18/2022 CLINICAL INDICATIONS: Concern for lung infection FINDINGS: (Adequate technique) Implanted Devices: Stable left subclavian biventricular pacemaker Spinal Cord Stimulator partially visualized.. Lungs: Clear, without mass, interstitial disease, or consolidation. Pleural Spaces: No pleural effusion. No pneumothorax. Mediastinum and Sarai: Normal Cardiac silhouette and great vessels: Normal heart size. Unremarkable aorta. Chest Wall: Degenerative changes of the thoracic spine. Abdominal surgical clips within the right upper quadrant. IMPRESSION IMPRESSION: No acute cardiopulmonary disease I personally viewed and interpreted these images and I have reviewed and approved this report. [facility] Radiology Study observation (narrative) [facility] XR Chest PA and LateralOrder ed By: Aidan Kent on 09-20-2022 [facility] Work Phone: Absolute lymphocyte countOrd ered By: Dr. Alvarez on 09-02-2022 Lymphocytes Auto (Unsp spec) [#/Vol] 1.57 10*3/uL 0.83-4.51 [facility] Basophil percentageOrdered B y: Dr. Alvarez on 09-02-2022 Basophils/100 WBC (Bld) 0.7 % 0-1 [facility] Chloride [Moles/Vol] 107 mmol/L 98-107 [facility] Eosinophils/100 WBC (Bld) 1.8 % 0-5 [facility] Glucose [Mass/Vol] 225 mg/dL 74-[address] [facility] Comment on above: Glucose result great er than or equal to 200 mg/dLsuggests DIABETES MELLITUS per A.D.A. criteria. Neutrophils (Bld) [#/Vol] 4.0 10*3/uL 2.0-7.7 [facility] Neutrophils/100 WBC (Bld) 65.9 % 47-70 [facility] Potassium [Moles/Vol] 4.6 mmol/L 3.5-5.1 [facility] Sodium [Moles/Vol] 138 mmol/L 136-[address] [facility] WBC (Bld) [#/Vol] 6.1 10*3/uL 4.4-11.[address] [facility] Blood erythrocytes count (nu mber/volume)Ordered By: Dr. Alvarez on 09-02-2022 RBC (Bld) [#/Vol] 4.39 10*6/uL 4.2-5.4 [facility] Blood hemoglobin measurement (mass/volume)Ordered By: Dr. Alvarez on 09-02-2022 Hemoglobin (Bld) [Mass/Vol] 13.8 g/dL 12.0-15.0 [facility] Blood lymphocytes/100 leukoc ytesOrdered By: Dr. Alvarez on 09-02-2022 Lymphocytes/100 WBC (Bld) 25.7 % 19-41 [facility] Blood monocytes/100 leukocyt esOrdered By: Dr. Alvarez on 09-02-2022 Monocytes/100 WBC (Bld) 5.6 % 0-10 [facility] Blood platelet mean volumeOr dered By: Dr. Alvarez on 09-02-2022 Platelet mean volume (Bld) [Entitic vol] 9.7 fL 6.2-12.0 [facility] Determination of erythrocyte mean corpuscular volume (MCV)Ordered By: Dr. Alvarez on 09-02-2022 MCV (RBC) [Entitic vol] 95.4 fL 81-99 [facility] Hematocrit Auto (Bld) [Volum e fraction]Ordered By: Dr. Alvarez on 09-02-2022 Hematocrit (Bld) [Volume fraction] 41.9 % 37-47 [facility] Laboratory - Chemistry and C hemistry - challengeOrdered By: Dr. Alvarez on 09-02-2022 CO2 [Moles/Vol] 22.0 mmol/L 21.0-32.0 [facility] Urea nitrogen/Creatinine [Mass ratio] 29.3 mg/mg 10-20 [facility] Laboratory - Hematology and Cell countsOrdered By: Dr. Alvarez on 09-02-2022 Erythrocyte distribution width (RBC) [Entitic vol] 46.3 fL 35.1-43.9 [facility] Erythrocyte distribution width (RBC) [Ratio] 13.2 % 11.6-14.6 [facility] Immature granulocytes/100 WBC (Bld) 0.300 % 0.0-0.9 [facility] Comment on above: IG% - Immature Granu locytes (promyelocytes, myelocytes and metamyelocytes) > 1% indicates that a LEFT SHIFT is Present. MCH (RBC) [Entitic mass] 31.4 pg 27.0-32.0 [facility] Nucleated RBC/100 WBC (Bld) [Ratio] 0 % 0-5 [facility] MCHC Auto (RBC) [Mass/Vol]Or dered By: Dr. Alvarez on 09-02-2022 MCHC (RBC) [Mass/Vol] 32.9 g/dL 32-36 [facility] No Panel InformationOrdered By: Dr. Alvarez on 09-02-2022 Estimated Creatinine Clearance Calc 57.40 ml/min [facility] Estimated GFR (MDRD) Amer 76 mL/min >60 [facility] Comment on above: GFR Calc Estimated GFR (MDRD) Non-Af Amer 62 mL/min >60 [facility] Comment on above: Non- GFR Calc Platelets bldOrdered By: Dr. Alvarez on 09-02-2022 Platelets (Bld) [#/Vol] 187 10*3/uL 150-450 [facility] Serum or plasma calcium oliver urement (mass/volume)Ordered By: Dr. Alvarez on 09-02-2022 Calcium [Mass/Vol] 9.6 mg/dL 8.5-10.[address] [facility] Serum or plasma creatinine m easurement (mass/volume)Ordered By: Dr. Alvarez on 09-02-2022 Creatinine [Mass/Vol] 0.99 mg/dL 0.55-1.02 [facility] Comment on above: The validity of the calculated GFR & GFRAA in patients over 70 years has not been determined. Clinical correlation is essential. Serum or plasma urea nitroge n measurement (mass/volume)Ordered By: Dr. Alvarez on 09-02-2022 Urea nitrogen [Mass/Vol] 29 mg/dL 7-18 [facility] Thin prep Papanicolaou smear with manual screeningOrdered By: Dr. Alvarez on 09-02-2022 Thin prep Papanicolaou smear with manual screening 9 5-15 [facility] CBC AND ELECTRONIC DIFFon Abs Baso Auto < Normal 0.00-0.15 [facility] Comment on above: Performed By: #### P TPTT #### [facility] (DEFAULT) [address] [place], [place] [address] Basophils/100 WBC (Bld) 0.6 % Normal [facility] Comment on above: Performed By: #### P TPTT #### [facility] (DEFAULT) [address] [address] DIFF STATUS Electronic Differential Normal [facility] Comment on above: Performed By: #### P TPTT #### [facility] (DEFAULT) [address] [address] Eosinophils (Bld) [#/Vol] 0.08 10*3/uL Normal 0.00-0.42 [facility] Comment on above: Performed By: #### P TPTT #### [facility] (DEFAULT) [address] [address] Eosinophils/100 WBC (Bld) 1.7 % Normal [facility] Comment on above: Performed By: #### P TPTT #### [facility] (DEFAULT) [address] [address] Hematocrit (Bld) [Volume fraction] 40.0 % Normal 34.9-44.3 [facility] Comment on above: Performed By: #### P TPTT #### [facility] (DEFAULT) [address] [address] Hemoglobin (Bld) [Mass/Vol] 13.1 g/dL Normal 11.4-15.2 [facility] Comment on above: Performed By: #### P TPTT #### [facility] (DEFAULT) [address] [address] Immature Grans % 0.2 % Normal [facility] Comment on above: Performed By: #### P TPTT #### [facility] (DEFAULT) [address] [address] Immature Grans Absolute < Normal <=0.08 [facility] Comment on above: Performed By: #### P TPTT #### [facility] (DEFAULT) [address] [address] Lymphocytes (Bld) [#/Vol] 1.88 10*3/uL Normal 1.16-3.51 [facility] Comment on above: Performed By: #### P TPTT #### [facility] (DEFAULT) [address] [address] Lymphocytes/100 WBC (Bld) 38.9 % Normal [facility] Comment on above: Performed By: #### P TPTT #### [facility] (DEFAULT) [address] [address] MCV (RBC) [Entitic vol] 95.0 fL Normal 79.6-97.7 [facility] Comment on above: Performed By: #### P TPTT #### [facility] (DEFAULT) [address] [address] Mean Cell Hgb 31.1 pg Normal 25.9-33.9 [facility] Comment on above: Performed By: #### P TPTT #### [facility] (DEFAULT) [address] [address] Mean Cell Hgb Conc 32.8 g/dL Normal 31.4-35.9 [facility] Comment on above: Performed By: #### P TPTT #### [facility] (DEFAULT) [address] [address] Monocytes (Bld) [#/Vol] 0.30 10*3/uL Normal 0.22-0.87 [facility] Comment on above: Performed By: #### P TPTT #### [facility] (DEFAULT) [address] [address] Monocytes/100 WBC (Bld) 6.2 % Normal [facility] Comment on above: Performed By: #### P TPTT #### [facility] (DEFAULT) [address] [address] Nucleated RBC 0.0 /100 WBC Normal <=0.2 [facility] Comment on above: Performed By: #### P TPTT #### [facility] (DEFAULT) [address] [place] [address] Platelet mean volume (Bld) [Entitic vol] 9.9 fL Normal 8.5-12.2 [facility] Comment on above: Performed By: #### P TPTT #### [facility] (DEFAULT) [address] [place] [address] Platelets (Bld) [#/Vol] 213 10*3/uL Normal 150-393 [facility] Comment on above: Performed By: #### P TPTT #### [facility] (DEFAULT) [address] [place] [address] RBC (Bld) [#/Vol] 4.21 10*6/uL Normal 3.91-5.04 [facility] Comment on above: Performed By: #### P TPTT #### [facility] (DEFAULT) [address] [place] [address] RBC Distribution 13.2 % Normal 10.8-14.9 [facility] Comment on above: Performed By: #### P TPTT #### [facility] (DEFAULT) [address] [place] [address] Segs + Bands Auto 52.4 % Normal [facility] Comment on above: Performed By: #### P TPTT #### [facility] (DEFAULT) [address] [place] [address] Segs + Bands,Absolute Auto 2.53 K/uL Normal 1.64-7.28 [facility] Comment on above: Performed By: #### P TPTT #### [facility] (DEFAULT) [address] [place] [address] WBC (Bld) [#/Vol] 4.83 10*3/uL Normal 3.99-11.19 [facility] Comment on above: Performed By: #### P TPTT #### [facility] (DEFAULT) [address] [place] [address] Basophils (Bld) [#/Vol] K/uL 0.00 - 0.15 K/[facility]L [facility] Bas[facility]/100 WBC (Bld) 0.6 % [facility] Differential cell count method Nom (Bld) Electronic Differential O [facility] Eosinophils (Bld) [#/Vol] 0.08 10*3/uL 0.00 - 0.42 K/uL [facility] Eosinophils/100 WBC (Bld) 1.7 % [facility] Erythrocyte distribution width (RBC) [Ratio] 13.2 % 10.8 - 14.9 % [facility] Hematocrit (Bld) [Volume fraction] 40.0 % 34.9 - 44.3 % [facility] Hemoglobin (Bld) [Mass/Vol] 13.1 g/dL 11.4 - 15.2 g/dL [facility] Immature granulocytes (Bld) [#/Vol] K/uL NINF - 0.08 K/uL [facility] Immature granulocytes/100 WBC (Bld) 0.2 % [facility] Lymphocytes (Bld) [#/Vol] 1.88 10*3/uL 1.16 - 3.51 K/uL [facility] Lymphocytes/100 WBC (Bld) 38.9 % [facility] MCH (RBC) [Entitic mass] 31.1 pg 25.9 - 33.9 pg [facility] MCHC (RBC) [Mass/Vol] 32.8 g/dL 31.4 - 35.9 g/dL [facility] MCV (RBC) [Entitic vol] 95.0 fL 79.6 - 97.7 fL [facility] Monocytes (Bld) [#/Vol] 0.30 10*3/uL 0.22 - 0.87 K/uL [facility] Monocytes/100 WBC (Bld) 6.2 % [facility] Neutrophils (Bld) [#/Vol] 2.53 10*3/uL 1.64 - 7.28 K/uL [facility] Nucleated RBC/100 WBC (Bld) [Ratio] 0.0 % NINF [facility] Platelet mean volume (Bld) [Entitic vol] 9.9 fL 8.5 - 12.2 fL [facility] Platelets (Bld) [#/Vol] 213 10*3/uL 150 - 393 K/uL [facility] RBC (Bld) [#/Vol] 4.21 10*6/uL [facility] Segmented neutrophils/100 WBC (Bld) 52.4 % [facility] WBC (Bld) [#/Vol] 4.83 10*3/uL 3.99 - 11.19 K/uL [facility] CHEM 7 (LYTES,BUN,CREA,GLUC) on 08-18-2022 Anion gap [Moles/Vol] 13 mmol/L Normal 7-17 [facility] Comment on above: Performed By: #### C HM7 #### [facility] (DEFAULT) [address] [address] Chloride [Moles/Vol] 112 mmol/L High 98-108 [facility] Comment on above: Performed By: #### C HM7 #### [facility] (DEFAULT) [address] [address] CO2 [Moles/Vol] 19 mmol/L Low 21-31 [facility] Comment on above: Performed By: #### C HM7 #### [facility] (DEFAULT) [address] [address] Creatinine [Mass/Vol] 0.85 mg/dL Normal 0.50-1.20 [facility] Comment on above: Performed By: #### C HM7 #### [facility] (DEFAULT) [address] [address] GFR/1.73 sq M.predicted among non-blacks MDRD (S/P/Bld) [Vol rate/Area] 82 mL/min/{1.73_m2} Normal >=60 [facility] Comment on above: Result Comment: Repo rted eGFR is based on the CKD-EPI 2020 equation using creatinine, age, and sex. Performed By: #### C HM7 #### [facility] (DEFAULT) [address] [place] [address] Glucose [Mass/Vol] 201 mg/dL High 70-99 [facility] Comment on above: Performed By: #### C HM7 #### [facility] (DEFAULT) [address] [place] [address] Osmolality [Osmolality] 305 mosm/kg Normal 278-305 [facility] Comment on above: Performed By: #### C HM7 #### [facility] (DEFAULT) [address] [place] [address] Potassium [Moles/Vol] 4.0 mmol/L Normal 3.5-5.0 [facility] Comment on above: Performed By: #### C HM7 #### [facility] (DEFAULT) [address] [place] [address] Sodium [Moles/Vol] 140 mmol/L Normal 135-145 [facility] Comment on above: Performed By: #### C HM7 #### [facility] (DEFAULT) [address] [place] [address] Urea nitrogen [Mass/Vol] 29 mg/dL High 7-25 [facility] Comment on above: Performed By: #### C HM7 #### [facility] (DEFAULT) [address] [place] [address] Urea nitrogen/Creatinine [Mass ratio] 34 mg/mg Normal [facility] Comment on above: Performed By: #### C HM7 #### [facility] (DEFAULT) [address] [place] [address] Anion gap [Moles/Vol] 13 mmol/L 7 - 17 mmol/L [facility] Chloride [Moles/Vol] 112 mmol/L High 98 - 10 8 mmol/L [facility] CO2 [Moles/Vol] 19 mmol/L Low 21 - 31 mmol/L [facility] Creatinine [Mass/Vol] 0.85 mg/dL 0.50 - 1.20 mg/dL [facility] GFR/1.73 sq M.predicted CKD-EPI (S/P/Bld) [Vol rate/Area] 82 - PINF [facility] Comment on above: Reported eGFR is bas ed on the CKD-EPI 2020 equation using creatinine, age, and sex. Glucose [Mass/Vol] 201 mg/dL High 70 - 99 mg/dL [facility] Interpretation and review of laboratory results Abnormal [facility] Osmolality Calc [Osmolality] 305 [facility] Potassium [Moles/Vol] 4.0 mmol/L 3.5 - 5.0 mmol/L [facility] Sodium [Moles/Vol] 140 mmol/L 135 - 145 mmol/L [facility] Urea nitrogen [Mass/Vol] 29 mg/dL High 7 - 25 mg/dL [facility] Urea nitrogen/Creatinine [Mass ratio] 34 mg/mg [facility] EP PROCEDURE - EPS/ABLATION/ DEVICEon 08-18-2022 EP PROCEDURE - EPS/ABLATION/DEVICE Pt with an irreversible nonischemic cardiomyopathy, NYHA Class III and LVEF of 30% despite medical therapy and underwent successful BiV ICD via left axillary vein for primary prevention. Baseline LBBB. There were excellent lead parameters. IV Vancomycin is utilized because: Physician/MARINE EQUIPMENT PRESERVATION INSPECTOR/PA or pharmacist documentation of increased MRSA rate, either facility-wide or operation-specific PLAN: Leave the aquacel dressing on (unless it becomes soiled to the outward edges) for 7 days, then remove and leave site uncovered Device follow up as scheduled with [facility] Discharge today assuming post procedure CXR and device testing are normal No follow up in EP clinic Follow up only in Device clinic Please contact Device team for education/teaching prior to discharge from [facility] Table formatting from the original result was not included. Pito Hendrix EP Procedure - EPS/Ablation/Device Ordering Physician: SERAFIN PADRON Order #: [id number] Study Date: 08/18/2022 Patient Information Name MRN Description Pito Hendrix [id number] 51 y.o. female Physicians Panel Physicians Referring Physician Case Authorizing Physician Serafin Padron MD (Primary) LIZ Gambino MD Jose R Sleiman, MD (Fellow) Procedures ICD Generator Implant Lead Insertion LV LEAD IMPLANT Pre Procedure Diagnosis Other cardiomyopathy [I42.8] Post Procedure Diagnosis Other cardiomyopathy [I42.8] Indications Other cardiomyopathy [I42.8 (ICD-10-CM)] Conclusion Pt with an irreversible nonischemic cardiomyopathy, NYHA Class III and LVEF of 30% despite medical therapy and underwent successful BiV ICD via left axillary vein for primary prevention. Baseline LBBB. There were excellent lead parameters. IV Vancomycin is utilized because: Physician/MARINE EQUIPMENT PRESERVATION INSPECTOR/PA or pharmacist documentation of increased MRSA rate, either facility-wide or operation-specific PLAN: Leave the aquacel dressing on (unless it becomes soiled to the outward edges) for 7 days, then remove and leave site uncovered Device follow up as scheduled with [facility] Discharge today assuming post procedure CXR and device testing are normal No follow up in EP clinic Follow up only in Device clinic Please contact Device team for education/teaching prior to discharge from [facility] Consent The procedure was explained including the potential risks of infection, heart perforation, re-operation, and other risks pertinent to procedure. Informed consent and permission to proceed was given. Site Preparation On the day of the procedure, the patient was brought to the operating room and the left chest prepped with chloraprep. Site prepped by Madhavi Powell RN. On the day of the procedure, the patient was brought to the operating room and the left chest prepped.The patient was draped in the usual sterile manner. Site prepped by Alejandro Thibodeaux RN. Device Technique Generator pocket made. Legs were elevated during venous entry access. . Legs were elevated during venous entry access. . Legs were elevated during venous entry access. . A new lead was placed into the RV apex. The insertion technique used the following: SET SJM PEEL-AWAY 8FR X 14CM and LEAD DEFIBRILLATOR RIGHT VENTRICLE 59CM 7.3FR RELIANCE Sutured the right ventricular lead. Suture used: two 2-0 Nurolon A new lead was placed into the mid right atrium. The insertion technique used the following: SET PEEL-AWAY 6FR X 14CM and LEAD PACING 52CM ATRIAL VENTRICULAR INGEVITY+ EXTENDABLE Tested the atrial lead. Injury current checked: Yes. Langberg maneuver performed: Yes. Movement of leads with inspiration: Yes. Sutured the atrial lead. Suture used: two 2-0 Nurolon Legs were not elevated during venous entry access. The venous system was accessed using a single axillary vein stick (Yger). A new lead was placed into the LV. The insertion technique used the following: SHEATH ATTAIN COMMAND + SUREVALVE OUTER EH, GUIDEWIRE ACUITY WHISPER EDS CS-J .014IN X 190CM and LEAD PACING 86CM 3.9-5.2FR 2.6FR ACUITY X4 QUADRIPOLAR KRISTINA Tested the left ventricular lead. Injury current checked: Yes. Langberg maneuver performed: No The wound was irrigated copiously with 1 gram Ancef flush. It was then checked for hemostasis and foreign bodies. Sutured the generator. Suture used: single 2-0 Nurolon Closure used: Vicryl 2-0 and Stratafix 4-0 Drain/Packing: Tyrex Absorbable Antibacterial Envelope Dressing: Aquacel Specimens: none Wound Classification: Clean [Class I] Estimated Blood Loss: 20 ml Insertable Decal Decorator Sutured the right ventricular lead. Suture used: two 2-0 Nurolon Sutured the atrial lead. Suture used: two 2-0 Nurolon Sutured the generator. Suture used: single 2-0 Nurolon Venogram A venogram was performed on the left subclavian. Injected with hand injection. Venogram performed via IV. Injected volume = 10 mL. Implants ICD Defibrillator Cardiac .9 (more content not included)... Normal [facility] Electrophysiology studyon Body surface area Derived from formula 2.03 m2 [facility] Pt with an irreversi ble nonischemic cardiomyopathy, NYHA Class III and LVEF of 30% despite medical therapy and underwent successful BiV ICD via left axillary vein for primary prevention. Baseline LBBB. There were excellent lead parameters. IV Vancomycin is utilized because: Physician/MARINE EQUIPMENT PRESERVATION INSPECTOR/PA or pharmacist documentation of increased MRSA rate, either facility-wide or operation-specific PLAN: Leave the aquacel dressing on (unless it becomes soiled to the outward edges) for 7 days, then remove and leave site uncovered Device follow up as scheduled with [facility] Discharge today assuming post procedure CXR and device testing are normal No follow up in EP clinic Follow up only in Device clinic Please contact Device team for education/teaching prior to discharge from [facility] Radiology Study observation (narrative) [facility] GLUCOSE POCon 08-18-2022 Glucose [Mass/Vol] 91 mg/dL 70 - 99 mg/dL [facility] POC Sample Type CAPBL [facility] Test performed at ad dress of the patient encounter. [facility] Glucose [Mass/Vol] 211 mg/dL High 70 - 99 mg/dL [facility] Interpretation and review of laboratory results Abnormal [facility] POC Sample Type VENO [facility] Test performed at ad dress of the patient encounter. [facility] PT,INR,PTTon 08-18-2022 aPTT Coag (Bld) [Time] 25.9 s Normal 24.0-34.3 [facility] Comment on above: Performed By: #### P TPTT #### [facility] (DEFAULT) [address] [place] [address] INR Coag (PPP) [Relative time] 1.0 {INR} Normal 0.9-1.1 [facility] Comment on above: Performed By: #### P TPTT #### [facility] (DEFAULT) [address] [place] [address] PT Coag (PPP) [Time] 13.4 s Normal 11.9-14.2 [facility] Comment on above: Performed By: #### P TPTT #### [facility] (DEFAULT) [address] [place] [address] aPTT Coag (PPP) [Time] 25.9 [facility] INR Coag (Bld) [Relative time] 1.0 {INR} 0.9 - 1.1 [facility] Interpretation and review of laboratory results Normal [facility] PT Coag (PPP) [Time] 13.4 s [facility] XR CHEST PA AND LATERALon XR CHEST PA AND LATERAL EXAM: XR CHEST PA AND LATERAL, 08/18/2022 15:33 PM COMPARISON: January 01, 2012 CLINICAL INDICATIONS: Rule out Pneumothorax Following Device Implantation RELEVANT CLINICAL HISTORY: Please complete this Xray within 1 hour from the completion of the procedure. Please read as a stat wet read. Please page the on-call EP fellow at [phone] with any emergent finding such as pneumothorax.; FINDINGS: (Adequate technique) Implanted Devices: Interval placement of left subclavian approach biventricular ICD with intact leads ending in right atrium, right ventricular and to the left ventricular wall through the coronary sinus. New placement of partially visualized intraspinal neurostimulator leads. Lungs: Clear, without mass, interstitial disease, or consolidation. Pleural Spaces: No pleural effusion. No pneumothorax. Mediastinum and Sarai: Normal Cardiac silhouette and great vessels: Normal heart size. Unremarkable aorta. Chest Wall: Normal IMPRESSION: No acute cardiopulmonary disease status post interval placement of left subclavian approach biventricular ICD. Normal [facility] XR Chest PA and Lateralon IMPRESSION: No acute cardiopulmonary disease status post interval placement of left subclavian approach biventricular ICD. OLOGY EXAM: XR CHEST PA AN D LATERAL, 08/18/2022 15:33 PM COMPARISON: January 01, 2012 CLINICAL INDICATIONS: Rule out Pneumothorax Following Device Implantation RELEVANT CLINICAL HISTORY: Please complete this Xray within 1 hour from the completion of the procedure. Please read as a stat wet read. Please page the on-call EP fellow at [phone] with any emergent finding such as pneumothorax.; FINDINGS: (Adequate technique) Implanted Devices: Interval placement of left subclavian approach biventricular ICD with intact leads ending in right atrium, right ventricular and to the left ventricular wall through the coronary sinus. New placement of partially visualized intraspinal neurostimulator leads. Lungs: Clear, without mass, interstitial disease, or consolidation. Pleural Spaces: No pleural effusion. No pneumothorax. Mediastinum and Sarai: Normal Cardiac silhouette and great vessels: Normal heart size. Unremarkable aorta. Chest Wall: Normal RADIOLOGY Shanae Jett MB [facility] - 08/18/2022 EXAM: XR CHEST PA AND LATERAL, 08/18/2022 15:33 PM COMPARISON: January 01, 2012 CLINICAL INDICATIONS: Rule out Pneumothorax Following Device Implantation RELEVANT CLINICAL HISTORY: Please complete this Xray within 1 hour from the completion of the procedure. Please read as a stat wet read. Please page the on-call EP fellow at [phone] with any emergent finding such as pneumothorax.; FINDINGS: (Adequate technique) Implanted Devices: Interval placement of left subclavian approach biventricular ICD with intact leads ending in right atrium, right ventricular and to the left ventricular wall through the coronary sinus. New placement of partially visualized intraspinal neurostimulator leads. Lungs: Clear, without mass, interstitial disease, or consolidation. Pleural Spaces: No pleural effusion. No pneumothorax. Mediastinum and Sarai: Normal Cardiac silhouette and great vessels: Normal heart size. Unremarkable aorta. Chest Wall: Normal IMPRESSION IMPRESSION: No acute cardiopulmonary disease status post interval placement of left subclavian approach biventricular ICD. [facility] Radiology Study observation (narrative) [facility] XR Chest PA and LateralOrder ed By: Shanae Jett on 08-18-2022 [facility] Work Phone: Absolute lymphocyte countOrd ered By: Dr. Nguyen on 08-07-2022 Lymphocytes Auto (Unsp spec) [#/Vol] 2.12 10*3/uL 0.83-4.51 [facility] Basophil percentageOrdered B y: Dr. Nguyen on 08-07-2022 Basophils/100 WBC (Bld) 0.2 % 0-1 [facility] Chloride [Moles/Vol] 111 mmol/L 98-107 [facility] Cholesterol [Mass/Vol] 141 mg/dL <200 [facility] Comment on above: <200 mg/dL Desirable 200-240 mg/dL Borderline >240 mg/dL High Risk Eosinophils/100 WBC (Bld) 2.1 % 0-5 [facility] Glucose [Mass/Vol] 196 mg/dL 74-[address] [facility] Comment on above: Fasting Glucose resu lt greater than or equal to 126 mg/dL suggests DIABETES MELLITUS per A.D.A. criteria. Neutrophils (Bld) [#/Vol] 2.6 10*3/uL 2.0-7.7 [facility] Neutrophils/100 WBC (Bld) 49.3 % 47-70 [facility] Potassium [Moles/Vol] 3.5 mmol/L 3.5-5.1 [facility] Sodium [Moles/Vol] 140 mmol/L 136-[address] [facility] Triglyceride [Mass/Vol] 97 mg/dL <199 [facility] Comment on above: The drugs N-Acetylcy steine and Metamizole may falsely depress this assay.Serum Triglycerides Reference Interval Normal <150 mg/dL Borderline high 150 - 199 mg/dL High 200 - 499 mg/dL Very High > or = 500 mg/dL WBC (Bld) [#/Vol] 5.2 10*3/uL 4.4-11.[address] [facility] Blood erythrocytes count (nu mber/volume)Ordered By: Dr. Nguyen on 08-07-2022 RBC (Bld) [#/Vol] 4.08 10*6/uL 4.2-5.4 [facility] Blood hemoglobin measurement (mass/volume)Ordered By: Dr. Nguyen on 08-07-2022 Hemoglobin (Bld) [Mass/Vol] 12.9 g/dL 12.0-15.0 [facility] Blood lymphocytes/100 leukoc ytesOrdered By: Dr. Nguyen on 08-07-2022 Lymphocytes/100 WBC (Bld) 41.0 % 19-41 [facility] Blood monocytes/100 leukocyt esOrdered By: Dr. Nguyen on 08-07-2022 Monocytes/100 WBC (Bld) 7.2 % 0-10 [facility] Blood platelet mean volumeOr dered By: Dr. Nguyen on 08-07-2022 Platelet mean volume (Bld) [Entitic vol] 10.3 fL 6.2-12.0 [facility] Determination of erythrocyte mean corpuscular volume (MCV)Ordered By: Dr. Nguyen on 03-04-2023 MCV (RBC) [Entitic vol] 94.6 fL 81-99 [facility] Glucose Glucometer (BldC) [M ass/Vol]Ordered By: Dr. Mathew on 08-07-2022 Glucose [Mass/Vol] 171 mg/dL 74-[address] [facility] Comment on above: MANAGEMENT OF PATIEN T CARE PER NURSING PROTOCOL Glucose [Mass/Vol] 212 mg/dL 74-[address] [facility] Comment on above: MANAGEMENT OF PATIEN T CARE PER NURSING PROTOCOL Hematocrit Auto (Bld) [Volum e fraction]Ordered By: Dr. Nguyen on 08-07-2022 Hematocrit (Bld) [Volume fraction] 38.6 % 37-47 [facility] Laboratory - Chemistry and C hemistry - challengeOrdered By: Dr. Nguyen on 08-07-2022 CO2 [Moles/Vol] 21.0 mmol/L 21.0-32.0 [facility] Urea nitrogen/Creatinine [Mass ratio] 32.2 mg/mg 10-20 [facility] Laboratory - Hematology and Cell countsOrdered By: Dr. Nguyen on 08-07-2022 Erythrocyte distribution width (RBC) [Entitic vol] 45.5 fL 35.1-43.9 [facility] Erythrocyte distribution width (RBC) [Ratio] 13.2 % 11.6-14.6 [facility] Immature granulocytes/100 WBC (Bld) 0.200 % 0.0-0.9 [facility] Comment on above: IG% - Immature Granu locytes (promyelocytes, myelocytes and metamyelocytes) > 1% indicates that a LEFT SHIFT is Present. MCH (RBC) [Entitic mass] 31.6 pg 27.0-32.0 [facility] Nucleated RBC/100 WBC (Bld) [Ratio] 0 % 0-5 [facility] MCHC Auto (RBC) [Mass/Vol]Or dered By: Dr. Nguyen on 08-07-2022 MCHC (RBC) [Mass/Vol] 33.4 g/dL 32-36 [facility] No Panel InformationOrdered By: Dr. Nguyen on 08-07-2022 Estimated Creatinine Clearance Calc 65.32 ml/min [facility] Estimated GFR (MDRD) Amer 88 mL/min >60 [facility] Comment on above: GFR Calc Estimated GFR (MDRD) Non-Af Amer 73 mL/min >60 [facility] Comment on above: Non- GFR Calc Troponin I High Sensitivity 8 pg/mL 3.0-54.0 [facility] Comment on above: Please Note: [place] Units and Gender Specific Reference Ranges. For more information see Policy Stat Procedure [place] High Sensitivity Troponin (TNIH) and attachments. Platelets bldOrdered By: Dr. Nguyen on 08-07-2022 Platelets (Bld) [#/Vol] 178 10*3/uL 150-450 [facility] Serum or plasma calcium oliver urement (mass/volume)Ordered By: Dr. Nguyen on 08-07-2022 Calcium [Mass/Vol] 8.9 mg/dL 8.5-10.[address] [facility] Serum or plasma cholesterol in HDL measurement (mass/volume)Ordered By: Dr. Nguyen on 08-07-2022 Cholesterol in HDL [Mass/Vol] 51 mg/dL >40 [facility] Comment on above: The drugs N-Acetylcy steine and Metamizole may falsely depress this assay. Reference Range HDL <40 mg/dL Low HDL Cholesterol HDL >or= 60 mg/dL High HDL Cholesterol Serum or plasma cholesterol in VLDL measurement (mass/volume)Ordered By: Dr. Nguyen on 08-07-2022 Cholesterol in VLDL [Mass/Vol] 19 mg/dL 5-40 [facility] Serum or plasma creatinine m easurement (mass/volume)Ordered By: Dr. Nguyen on 08-07-2022 Creatinine [Mass/Vol] 0.87 mg/dL 0.55-1.02 [facility] Comment on above: The validity of the calculated GFR & GFRAA in patients over 70 years has not been determined. Clinical correlation is essential. Serum or plasma low density lipoprotein (LDL) cholesterol measurement (mass/volume)Ordered By: Dr. Nguyen on 08-07-2022 Cholesterol in LDL [Mass/Vol] 71 mg/dL 0-130 [facility] Serum or plasma urea nitroge n measurement (mass/volume)Ordered By: Dr. Nguyen on 08-07-2022 Urea nitrogen [Mass/Vol] 28 mg/dL 7-18 [facility] Thin prep Papanicolaou smear with manual screeningOrdered By: Dr. Nguyen on 08-07-2022 Thin prep Papanicolaou smear with manual screening 8 5-15 [facility] Absolute lymphocyte countOrd ered By: Lolis Todd on 08-06-2022 Lymphocytes Auto (Unsp spec) [#/Vol] 2.24 10*3/uL 0.83-4.51 [facility] Basophil percentageOrdered B y: Lolis Todd on 08-06-2022 Basophils/100 WBC (Bld) 0.3 % 0-1 [facility] Chloride [Moles/Vol] 109 mmol/L 98-107 [facility] Eosinophils/100 WBC (Bld) 2.0 % 0-5 [facility] Glucose [Mass/Vol] 244 mg/dL 74-[address] [facility] Comment on above: Glucose result great er than or equal to 200 mg/dLsuggests DIABETES MELLITUS per A.D.A. criteria. Neutrophils (Bld) [#/Vol] 3.5 10*3/uL 2.0-7.7 [facility] Neutrophils/100 WBC (Bld) 55.6 % 47-70 [facility] Potassium [Moles/Vol] 4.0 mmol/L 3.5-5.1 [facility] Sodium [Moles/Vol] 138 mmol/L 136-[address] [facility] WBC (Bld) [#/Vol] 6.4 10*3/uL 4.4-11.[address] [facility] Blood erythrocytes count (nu mber/volume)Ordered By: Lolis Todd on 08-06-2022 RBC (Bld) [#/Vol] 4.26 10*6/uL 4.2-5.4 [facility] Blood hemoglobin measurement (mass/volume)Ordered By: Lolis Todd on 08-06-2022 Hemoglobin (Bld) [Mass/Vol] 13.6 g/dL 12.0-15.0 [facility] Blood lymphocytes/100 leukoc ytesOrdered By: Lolis Todd on 08-06-2022 Lymphocytes/100 WBC (Bld) 35.2 % 19-41 [facility] Blood monocytes/100 leukocyt esOrdered By: Lolis Todd on 08-06-2022 Monocytes/100 WBC (Bld) 6.6 % 0-10 [facility] Blood platelet mean volumeOr dered By: Lolis Todd on 08-06-2022 Platelet mean volume (Bld) [Entitic vol] 10.2 fL 6.2-12.0 [facility] Determination of erythrocyte mean corpuscular volume (MCV)Ordered By: Lolis Todd on 08-06-2022 MCV (RBC) [Entitic vol] 96.7 fL 81-99 [facility] Hematocrit Auto (Bld) [Volum e fraction]Ordered By: Lolis Todd on 08-06-2022 Hematocrit (Bld) [Volume fraction] 41.2 % 37-47 [facility] Laboratory - Chemistry and C hemistry - challengeOrdered By: Lolis Todd on 08-06-2022 CO2 [Moles/Vol] 20.0 mmol/L 21.0-32.0 [facility] Urea nitrogen/Creatinine [Mass ratio] 28.9 mg/mg 10-20 [facility] Laboratory - Hematology and Cell countsOrdered By: Lolis Todd on 08-06-2022 Erythrocyte distribution width (RBC) [Entitic vol] 47.3 fL 35.1-43.9 [facility] Erythrocyte distribution width (RBC) [Ratio] 13.4 % 11.6-14.6 [facility] Immature granulocytes/100 WBC (Bld) 0.300 % 0.0-0.9 [facility] Comment on above: IG% - Immature Granu locytes (promyelocytes, myelocytes and metamyelocytes) > 1% indicates that a LEFT SHIFT is Present. MCH (RBC) [Entitic mass] 31.9 pg 27.0-32.0 [facility] Nucleated RBC/100 WBC (Bld) [Ratio] 0 % 0-5 [facility] MCHC Auto (RBC) [Mass/Vol]Or dered By: Lolis Todd on 08-06-2022 MCHC (RBC) [Mass/Vol] 33.0 g/dL 32-36 [facility] No Panel InformationOrdered By: Dr. Ortez on 08-06-2022 Troponin I High Sensitivity 7 pg/mL 3.0-54.0 [facility] Comment on above: Please Note: [place] Units and Gender Specific Reference Ranges. For more information see Policy Stat Procedure [facility] High Sensitivity Troponin (TNIH) and attachments. No Panel InformationOrdered By: Lolis Todd on 08-06-2022 Estimated GFR (MDRD) Amer 85 mL/min >60 [facility] Comment on above: GFR Calc Estimated GFR (MDRD) Non-Af Amer 70 mL/min >60 [facility] Comment on above: Non- GFR Calc Platelets bldOrdered By: Umberto Todd on 08-06-2022 Platelets (Bld) [#/Vol] 198 10*3/uL 150-450 [facility] Serum or plasma calcium oliver urement (mass/volume)Ordered By: Lolis Todd on 08-06-2022 Calcium [Mass/Vol] 9.2 mg/dL 8.5-10.[address] [facility] Serum or plasma creatinine m easurement (mass/volume)Ordered By: Lolis Todd on 08-06-2022 Creatinine [Mass/Vol] 0.90 mg/dL 0.55-1.02 [facility] Comment on above: The validity of the calculated GFR & GFRAA in patients over 70 years has not been determined. Clinical correlation is essential. Serum or plasma urea nitroge n measurement (mass/volume)Ordered By: Lolis Todd on 08-06-2022 Urea nitrogen [Mass/Vol] 26 mg/dL 7-18 [facility] Thin prep Papanicolaou smear with manual screeningOrdered By: Lolis Todd on 08-06-2022 Thin prep Papanicolaou smear with manual screening 9 5-15 [facility] Laboratory - Chemistry and C hemistry - challengeOrdered By: Mike Tom on 07-30-2022 Free T4 [Mass/Vol] 0.94 ng/dL 0.76-1.[address] [facility] No Panel InformationOrdered By: Mike Tom on 07-30-2022 Free Triiodothyronine (T3) pg/dL 2.6 pg/mL 2.18-3.98 [facility] Thyroid Stimulating Hormone (TSH) 0.66 uIU/mL 0.358-3.74 [facility] Laboratory - Chemistry and C hemistry - challengeOrdered By: Mike Tom on 06-03-2022 Free T4 [Mass/Vol] 0.94 ng/dL 0.76-1.[address] [facility] No Panel InformationOrdered By: Mike Tom on 06-03-2022 Free Triiodothyronine (T3) pg/dL 3.0 pg/mL 2.18-3.98 [facility] Thyroid Stimulating Hormone (TSH) 0.06 uIU/mL 0.358-3.74 [facility] Culture, urineOrdered By: Dr Francisco Baird on 05-27-2022 Bacteria identified Cx Nom (U) Presumptive E. coli [facility] Serum or plasma thyroperoxid ase antibody assay (units/volume)Ordered By: Dr. Hancock on 05-18-2022 TPO Ab Qn [IU]/mL 0-34 [facility] Comment on above: Performed at: [address] [id number] Director: Linn Tristan MD, Phone: [phone] at: - [facility] [id number] Director: Vargas Kim PhD, Phone: [phone] Thyroid stimulating immunogl obulins detectionOrdered By: Dr. Hancock on 05-18-2022 Thyroid stimulating immunoglobulins Ql (S) <0.10 IU/L 0.00-0.55 [facility] Laboratory - Chemistry and C hemistry - challengeOrdered By: Mike Tom on 05-06-2022 Free T4 [Mass/Vol] 1.00 ng/dL 0.76-1.[address] [facility] Laboratory - Hematology and Cell countson 05-06-2022 HbA1c (Bld) [Mass fraction] 8.7 % [facility] No Panel InformationOrdered By: Mike Tom on 05-06-2022 Free Triiodothyronine (T3) pg/dL 3.4 pg/mL 2.18-3.98 [facility] Thyroid Stimulating Hormone (TSH) 0.01 uIU/mL 0.358-3.74 [facility] Basophil percentageOrdered B y: Bryan Mitchell on 04-13-2022 Chloride [Moles/Vol] 109 mmol/L 98-107 [facility] Glucose [Mass/Vol] 218 mg/dL 74-[address] [facility] Comment on above: Glucose result great er than or equal to 200 mg/dLsuggests DIABETES MELLITUS per A.D.A. criteria. Potassium [Moles/Vol] 3.9 mmol/L 3.5-5.1 [facility] Sodium [Moles/Vol] 140 mmol/L 136-[address] [facility] Laboratory - Chemistry and C hemistry - challengeOrdered By: Bryan Mitchell on 04-13-2022 CO2 [Moles/Vol] 24.0 mmol/L 21.0-32.0 [facility] Natriuretic peptide B (Bld) [Mass/Vol] 87.5 pg/mL 0-100 [facility] Urea nitrogen/Creatinine [Mass ratio] 18.9 mg/mg 10-20 [facility] No Panel InformationOrdered By: Bryan Mitchell on 04-13-2022 Estimated GFR (MDRD) Amer 91 mL/min >60 [facility] Comment on above: GFR Calc Estimated GFR (MDRD) Non-Af Amer 75 mL/min >60 [facility] Comment on above: Non- GFR Calc Serum or plasma calcium oliver urement (mass/volume)Ordered By: Bryan Mitchell on 04-13-2022 Calcium [Mass/Vol] 8.8 mg/dL 8.5-10.[address] [facility] Serum or plasma creatinine m easurement (mass/volume)Ordered By: Bryan Mitchell on 04-13-2022 Creatinine [Mass/Vol] 0.85 mg/dL 0.55-1.02 [facility] Comment on above: The validity of the calculated GFR & GFRAA in patients over 70 years has not been determined. Clinical correlation is essential. Serum or plasma urea nitroge n measurement (mass/volume)Ordered By: Bryan Mitchell on 04-13-2022 Urea nitrogen [Mass/Vol] 16 mg/dL 7-18 [facility] Thin prep Papanicolaou smear with manual screeningOrdered By: Bryan Mitchell on 04-13-2022 Thin prep Papanicolaou smear with manual screening 7 5-15 [facility] Absolute lymphocyte countOrd ered By: Dr. Ortez on 04-05-2022 Lymphocytes Auto (Unsp spec) [#/Vol] 2.06 10*3/uL 0.83-4.51 [facility] Basophil percentageOrdered B y: Dr. Ortez on 04-05-2022 Basophils/100 WBC (Bld) 0.3 % 0-1 [facility] Chloride [Moles/Vol] 112 mmol/L 98-107 [facility] Eosinophils/100 WBC (Bld) 0.6 % 0-5 [facility] Glucose [Mass/Vol] 256 mg/dL 74-[address] [facility] Comment on above: Glucose result great er than or equal to 200 mg/dLsuggests DIABETES MELLITUS per A.D.A. criteria. Neutrophils (Bld) [#/Vol] 3.7 10*3/uL 2.0-7.7 [facility] Neutrophils/100 WBC (Bld) 59.8 % 47-70 [facility] Potassium [Moles/Vol] 3.5 mmol/L 3.5-5.1 [facility] Sodium [Moles/Vol] 141 mmol/L 136-[address] [facility] WBC (Bld) [#/Vol] 6.2 10*3/uL 4.4-11.[address] [facility] Blood erythrocytes count (nu mber/volume)Ordered By: Dr. Ortez on 04-05-2022 RBC (Bld) [#/Vol] 4.61 10*6/uL 4.2-5.4 [facility] Blood hemoglobin measurement (mass/volume)Ordered By: Dr. Ortez on 04-05-2022 Hemoglobin (Bld) [Mass/Vol] 14.8 g/dL 12.0-15.0 [facility] Blood lymphocytes/100 leukoc ytesOrdered By: Dr. Ortez on 04-05-2022 Lymphocytes/100 WBC (Bld) 33.2 % 19-41 [facility] Blood monocytes/100 leukocyt esOrdered By: Dr. Ortez on 04-05-2022 Monocytes/100 WBC (Bld) 5.8 % 0-10 [facility] Blood platelet mean volumeOr dered By: Dr. Ortez on 04-05-2022 Platelet mean volume (Bld) [Entitic vol] 9.8 fL 6.2-12.0 [facility] Determination of erythrocyte mean corpuscular volume (MCV)Ordered By: Dr. Ortez on 04-05-2022 MCV (RBC) [Entitic vol] 91.8 fL 81-99 [facility] Hematocrit Auto (Bld) [Volum e fraction]Ordered By: Dr. Ortez on 04-05-2022 Hematocrit (Bld) [Volume fraction] 42.3 % 37-47 [facility] Laboratory - Chemistry and C hemistry - challengeOrdered By: Dr. Ortez on 04-05-2022 CO2 [Moles/Vol] 19.0 mmol/L 21.0-32.0 [facility] Urea nitrogen/Creatinine [Mass ratio] 25.4 mg/mg 10-20 [facility] Laboratory - Hematology and Cell countsOrdered By: Dr. Ortez on 04-05-2022 Erythrocyte distribution width (RBC) [Entitic vol] 48.6 fL 35.1-43.9 [facility] Erythrocyte distribution width (RBC) [Ratio] 14.5 % 11.6-14.6 [facility] Immature granulocytes/100 WBC (Bld) 0.300 % 0.0-0.9 [facility] Comment on above: IG% - Immature Granu locytes (promyelocytes, myelocytes and metamyelocytes) > 1% indicates that a LEFT SHIFT is Present. MCH (RBC) [Entitic mass] 32.1 pg 27.0-32.0 [facility] Nucleated RBC/100 WBC (Bld) [Ratio] 0 % 0-5 [facility] MCHC Auto (RBC) [Mass/Vol]Or dered By: Dr. Ortez on 04-05-2022 MCHC (RBC) [Mass/Vol] 35.0 g/dL 32-36 [facility] No Panel InformationOrdered By: Dr. Ortez on 04-05-2022 Troponin I High Sensitivity 9 pg/mL 3.0-54.0 [facility] Comment on above: Please Note: [place] Units and Gender Specific Reference Ranges. For more information see Policy Stat Procedure [facility] High Sensitivity Troponin (TNIH) and attachments. Estimated Creatinine Clearance Calc 63.14 ml/min [facility] Estimated GFR (MDRD) Amer 84 mL/min >60 [facility] Comment on above: GFR Calc Estimated GFR (MDRD) Non-Af Amer 69 mL/min >60 [facility] Comment on above: Non- GFR Calc Platelets bldOrdered By: Dr. Ortez on 04-05-2022 Platelets (Bld) [#/Vol] 209 10*3/uL 150-450 [facility] Serum or plasma calcium oliver urement (mass/volume)Ordered By: Dr. Ortez on 04-05-2022 Calcium [Mass/Vol] 9.1 mg/dL 8.5-10.[address] [facility] Serum or plasma creatinine m easurement (mass/volume)Ordered By: Dr. Ortez on 04-05-2022 Creatinine [Mass/Vol] 0.90 mg/dL 0.55-1.02 [facility] Comment on above: The validity of the calculated GFR & GFRAA in patients over 70 years has not been determined. Clinical correlation is essential. Serum or plasma urea nitroge n measurement (mass/volume)Ordered By: Dr. Ortez on 04-05-2022 Urea nitrogen [Mass/Vol] 23 mg/dL 7-18 [facility] Thin prep Papanicolaou smear with manual screeningOrdered By: Dr. Ortez on 04-05-2022 Thin prep Papanicolaou smear with manual screening 10 5-15 [facility] Absolute lymphocyte counton 02-24-2022 Lymphocytes Auto (Unsp spec) [#/Vol] 2.98 10*3/uL 0.83-4.51 [facility] Work Phone: Basophil percentageon 2021 Basophils/100 WBC (Bld) 0.3 % 0-1 [facility] Work Phone: Chloride [Moles/Vol] 108 mmol/L 98-107 [facility] Work Phone: [phone] Eosinophils/100 WBC (Bld) 1.0 % 0-5 [facility] Work Phone: [phone] Glucose [Mass/Vol] 161 mg/dL 74-[address] [facility] Work Phone: Comment on above: Fasting Glucose resu lt greater than or equal to 126 mg/dL suggests DIABETES MELLITUS per A.D.A. criteria. Neutrophils (Bld) [#/Vol] 3.3 10*3/uL 2.0-7.7 [facility] Work Phone: Neutrophils/100 WBC (Bld) 48.3 % 47-70 [facility] Work Phone: Potassium [Moles/Vol] 4.0 mmol/L 3.5-5.1 [facility] Work Phone: [phone] Sodium [Moles/Vol] 138 mmol/L 136-[address] [facility] Work Phone: WBC (Bld) [#/Vol] 6.9 10*3/uL 4.4-11.[address] [facility] Work Phone: Blood erythrocytes count (nu mber/volume)on 02-24-2022 RBC (Bld) [#/Vol] 4.75 10*6/uL 4.2-5.4 [facility] Work Phone: Blood hemoglobin measurement (mass/volume)on 02-24-2022 Hemoglobin (Bld) [Mass/Vol] 14.3 g/dL 12.0-15.0 [facility] Work Phone: Blood lymphocytes/100 leukoc yteson 02-24-2022 Lymphocytes/100 WBC (Bld) 43.1 % 19-41 [facility] Work Phone: Blood monocytes/100 leukocyt eson 02-24-2022 Monocytes/100 WBC (Bld) 7.2 % 0-10 [facility] Work Phone: [phone] Blood platelet mean volumeon 02-24-2022 Platelet mean volume (Bld) [Entitic vol] 9.4 fL 6.2-12.0 [facility] Work Phone: Determination of erythrocyte mean corpuscular volume (MCV)on 02-24-2022 MCV (RBC) [Entitic vol] 92.0 fL 81-99 [facility] Work Phone: Hematocrit Auto (Bld) [Volum e fraction]on 02-24-2022 Hematocrit (Bld) [Volume fraction] 43.7 % 37-47 [facility] Work Phone: Laboratory - Chemistry and C hemistry - challengeon 02-24-2022 CO2 [Moles/Vol] 23.0 mmol/L 21.0-32.0 [facility] Work Phone: Free T4 [Mass/Vol] 1.12 ng/dL 0.76-1.[address] [facility] Work Phone: Natriuretic peptide B (Bld) [Mass/Vol] 15.7 pg/mL 0-100 [facility] Work Phone: Urea nitrogen/Creatinine [Mass ratio] 27.2 mg/mg 10-20 [facility] Work Phone: Laboratory - Hematology and Cell countson 02-24-2022 Erythrocyte distribution width (RBC) [Entitic vol] 48.5 fL 35.1-43.9 [facility] Work Phone: Erythrocyte distribution width (RBC) [Ratio] 14.4 % 11.6-14.6 [facility] Work Phone: Immature granulocytes/100 WBC (Bld) 0.100 % 0.0-0.9 [facility] Work Phone: Comment on above: IG% - Immature Granu locytes (promyelocytes, myelocytes and metamyelocytes) > 1% indicates that a LEFT SHIFT is Present. MCH (RBC) [Entitic mass] 30.1 pg 27.0-32.0 [facility] Work Phone: Nucleated RBC/100 WBC (Bld) [Ratio] 0 % 0-5 [facility] Work Phone: MCHC Auto (RBC) [Mass/Vol]on 02-24-2022 MCHC (RBC) [Mass/Vol] 32.7 g/dL 32-36 [facility] Work Phone: No Panel Informationon 02-24 Estimated GFR (MDRD) Amer 83 mL/min >60 [facility] Work Phone: Comment on above: GFR Calc Estimated GFR (MDRD) Non-Af Amer 68 mL/min >60 [facility] Work Phone: Comment on above: Non- GFR Calc Thyroid Stimulating Hormone (TSH) 0.01 uIU/mL 0.358-3.74 [facility] Work Phone: Platelets bldon 02-24-2022 Platelets (Bld) [#/Vol] 273 10*3/uL 150-450 [facility] Work Phone: Serum or plasma calcium oliver urement (mass/volume)on 02-24-2022 Calcium [Mass/Vol] 9.8 mg/dL 8.5-10.[address] [facility] Work Phone: Serum or plasma creatinine m easurement (mass/volume)on 02-24-2022 Creatinine [Mass/Vol] 0.92 mg/dL 0.55-1.02 [facility] Work Phone: Comment on above: The validity of the calculated GFR & GFRAA in patients over 70 years has not been determined. Clinical correlation is essential. Serum or plasma urea nitroge n measurement (mass/volume)on 02-24-2022 Urea nitrogen [Mass/Vol] 25 mg/dL 7-18 [facility] Work Phone: Thin prep Papanicolaou smear with manual screeningon 02-24-2022 Thin prep Papanicolaou smear with manual screening 7 5-15 [facility] Work Phone: Absolute lymphocyte counton 01-24-2022 Lymphocytes Auto (Unsp spec) [#/Vol] 2.78 10*3/uL 0.83-4.51 [facility] Work Phone: Basophil percentageon 2021 Basophils/100 WBC (Bld) 0.2 % 0-1 [facility] Work Phone: Chloride [Moles/Vol] 112 mmol/L 98-107 [facility] Work Phone: Eosinophils/100 WBC (Bld) 1.1 % 0-5 [facility] Work Phone: Glucose [Mass/Vol] 166 mg/dL 74-[address] [facility] Work Phone: Comment on above: Fasting Glucose resu lt greater than or equal to 126 mg/dL suggests DIABETES MELLITUS per A.D.A. criteria. Neutrophils (Bld) [#/Vol] 3.2 10*3/uL 2.0-7.7 [facility] Work Phone: Neutrophils/100 WBC (Bld) 49.0 % 47-70 [facility] Work Phone: [phone] Potassium [Moles/Vol] 3.7 mmol/L 3.5-5.1 [facility] Work Phone: [phone] Sodium [Moles/Vol] 142 mmol/L 136-[address] [facility] Work Phone: [phone] WBC (Bld) [#/Vol] 6.4 10*3/uL 4.4-11.[address] [facility] Work Phone: [phone] Blood erythrocytes count (nu mber/volume)on 01-24-2022 RBC (Bld) [#/Vol] 4.41 10*6/uL 4.2-5.4 [facility] Work Phone: [phone] Blood hemoglobin measurement (mass/volume)on 01-24-2022 Hemoglobin (Bld) [Mass/Vol] 13.5 g/dL 12.0-15.0 [facility] Work Phone: Blood lymphocytes/100 leukoc yteson 01-24-2022 Lymphocytes/100 WBC (Bld) 43.3 % 19-41 [facility] Work Phone: Blood monocytes/100 leukocyt eson 01-24-2022 Monocytes/100 WBC (Bld) 6.1 % 0-10 [facility] Work Phone: Blood platelet mean volumeon 01-24-2022 Platelet mean volume (Bld) [Entitic vol] 9.8 fL 6.2-12.0 [facility] Work Phone: Determination of erythrocyte mean corpuscular volume (MCV)on 01-24-2022 MCV (RBC) [Entitic vol] 89.6 fL 81-99 [facility] Work Phone: Hematocrit Auto (Bld) [Volum e fraction]on 01-24-2022 Hematocrit (Bld) [Volume fraction] 39.5 % 37-47 [facility] Work Phone: Laboratory - Chemistry and C hemistry - challengeon 01-24-2022 CO2 [Moles/Vol] 23.0 mmol/L 21.0-32.0 [facility] Work Phone: Lipase [Catalytic activity/Vol] 284 U/L 73-393 [facility] Work Phone: Urea nitrogen/Creatinine [Mass ratio] 22.5 mg/mg 10-20 [facility] Work Phone: Laboratory - Hematology and Cell countson 01-24-2022 Erythrocyte distribution width (RBC) [Entitic vol] 42.0 fL 35.1-43.9 [facility] Work Phone: Erythrocyte distribution width (RBC) [Ratio] 12.8 % 11.6-14.6 [facility] Work Phone: Immature granulocytes/100 WBC (Bld) 0.300 % 0.0-0.9 [facility] Work Phone: Comment on above: IG% - Immature Granu locytes (promyelocytes, myelocytes and metamyelocytes) > 1% indicates that a LEFT SHIFT is Present. MCH (RBC) [Entitic mass] 30.6 pg 27.0-32.0 [facility] Work Phone: Nucleated RBC/100 WBC (Bld) [Ratio] 0 % 0-5 [facility] Work Phone: MCHC Auto (RBC) [Mass/Vol]on 01-24-2022 MCHC (RBC) [Mass/Vol] 34.2 g/dL 32-36 [facility] [place] Work Phone: No Panel Informationon 01-24 Troponin I High Sensitivity 10 pg/mL 3.0-54.0 [facility] Work Phone: Comment on above: Please Note: [place] Units and Gender Specific Reference Ranges. For more information see Policy Stat Procedure [place] High Sensitivity Troponin (TNIH) and attachments. D-Dimer Quantitative (PE/DVT) 0.45 FEU/ug/m 0.27-0.49 [facility] Work Phone: Comment on above: NORMAL D-Dimer level (<0.50) indicates no DVT or PE. Estimated Creatinine Clearance Calc 57.99 ml/min [facility] Work Phone: Estimated GFR (MDRD) Amer 77 mL/min >60 [facility] Work Phone: Comment on above: GFR Calc Estimated GFR (MDRD) Non-Af Amer 64 mL/min >60 [facility] Work Phone: Comment on above: Non- GFR Calc Platelets bldon 01-24-2022 Platelets (Bld) [#/Vol] 201 10*3/uL 150-450 [facility] Work Phone: Serum or plasma calcium oliver urement (mass/volume)on 01-24-2022 Calcium [Mass/Vol] 8.9 mg/dL 8.5-10.1 [facility] Work Phone: Serum or plasma creatinine m easurement (mass/volume)on 01-24-2022 Creatinine [Mass/Vol] 0.98 mg/dL 0.55-1.02 [facility] Work Phone: Comment on above: The validity of the calculated GFR & GFRAA in patients over 70 years has not been determined. Clinical correlation is essential. Serum or plasma urea nitroge n measurement (mass/volume)on 01-24-2022 Urea nitrogen [Mass/Vol] 22 mg/dL 7-18 [facility] Work Phone: Thin prep Papanicolaou smear with manual screeningon 01-24-2022 Thin prep Papanicolaou smear with manual screening 7 5-15 [facility] Work Phone: Absolute lymphocyte counton 11-17-2021 Lymphocytes Auto (Unsp spec) [#/Vol] 2.16 10*3/uL 0.83-4.51 [facility] Work Phone: Basophil percentageon 2021 Lactate [Moles/Vol] 2.1 mmol/L 0.4-2.0 [facility] Work Phone: Comment on above: Critical Result(s) C alled at: 06:10:00 11/17/2021 by: Félix Hardy. Ivan Haji 2 RN (ER). Results read back by same. Basophils/100 WBC (Bld) 0.2 % 0-1 [facility] Work Phone: Chloride [Moles/Vol] 109 mmol/L 98-107 [facility] Work Phone: Eosinophils/100 WBC (Bld) 1.0 % 0-5 [facility] Work Phone: [phone] Glucose [Mass/Vol] 305 mg/dL 74-[address] [facility] Work Phone: [phone] Comment on above: Glucose result great er than or equal to 200 mg/dLsuggests DIABETES MELLITUS per A.D.A. criteria. Neutrophils (Bld) [#/Vol] 2.4 10*3/uL 2.0-7.7 [facility] Work Phone: Neutrophils/100 WBC (Bld) 48.2 % 47-70 [facility] Work Phone: Potassium [Moles/Vol] 3.6 mmol/L 3.5-5.1 [facility] [place] Work Phone: Sodium [Moles/Vol] 140 mmol/L 136-[address] [facility] Work Phone: WBC (Bld) [#/Vol] 4.9 10*3/uL 4.4-11.[address] [facility] Work Phone: Blood erythrocytes count (nu mber/volume)on 11-17-2021 RBC (Bld) [#/Vol] 3.51 10*6/uL 4.2-5.4 [facility] Work Phone: Blood hemoglobin measurement (mass/volume)on 11-17-2021 Hemoglobin (Bld) [Mass/Vol] 10.7 g/dL 12.0-15.0 [facility] Work Phone: Blood lymphocytes/100 leukoc yteson 11-17-2021 Lymphocytes/100 WBC (Bld) 44.3 % 19-41 [facility] Work Phone: Blood monocytes/100 leukocyt eson 11-17-2021 Monocytes/100 WBC (Bld) 6.1 % 0-10 [facility] Work Phone: Blood platelet mean volumeon 11-17-2021 Platelet mean volume (Bld) [Entitic vol] 9.7 fL 6.2-12.0 [facility] Work Phone: Determination of erythrocyte mean corpuscular volume (MCV)on 11-17-2021 MCV (RBC) [Entitic vol] 94.9 fL 81-99 [facility] Work Phone: Hematocrit Auto (Bld) [Volum e fraction]on 11-17-2021 Hematocrit (Bld) [Volume fraction] 33.3 % 37-47 [facility] Work Phone: Laboratory - Chemistry and C hemistry - challengeon 11-17-2021 CO2 [Moles/Vol] 25.0 mmol/L 21.0-32.0 [facility] Work Phone: Urea nitrogen/Creatinine [Mass ratio] 17.6 mg/mg 10-20 [facility] Work Phone: Laboratory - Hematology and Cell countson 11-17-2021 Erythrocyte distribution width (RBC) [Entitic vol] 50.0 fL 35.1-43.9 [facility] Work Phone: Erythrocyte distribution width (RBC) [Ratio] 14.6 % 11.6-14.6 [facility] Work Phone: Immature granulocytes/100 WBC (Bld) 0.200 % 0.0-0.9 [facility] Work Phone: Comment on above: IG% - Immature Granu locytes (promyelocytes, myelocytes and metamyelocytes) > 1% indicates that a LEFT SHIFT is Present. MCH (RBC) [Entitic mass] 30.5 pg 27.0-32.0 [facility] Work Phone: Nucleated RBC/100 WBC (Bld) [Ratio] 0 % 0-5 [facility] Work Phone: MCHC Auto (RBC) [Mass/Vol]on 11-17-2021 MCHC (RBC) [Mass/Vol] 32.1 g/dL 32-36 [facility] Work Phone: No Panel Informationon 11-17 Estimated Creatinine Clearance Calc 45.98 ml/min [facility] Work Phone: Estimated GFR (MDRD) Amer 58 mL/min >60 [facility] Work Phone: Comment on above: GFR Calc Estimated GFR (MDRD) Non-Af Amer 48 mL/min >60 [facility] Work Phone: Comment on above: Non- GFR Calc Troponin I High Sensitivity 9 pg/mL 3.0-54.0 [facility] Work Phone: Comment on above: Please Note: [place] t Units and Gender Specific Reference Ranges. For more information see Policy Stat Procedure [place] High Sensitivity Troponin (TNIH) and attachments. Platelets bldon 11-17-2021 Platelets (Bld) [#/Vol] 230 10*3/uL 150-450 [facility] Work Phone: Serum or plasma calcium oliver urement (mass/volume)on 11-17-2021 Calcium [Mass/Vol] 8.9 mg/dL 8.5-10.[address] [facility] Work Phone: Serum or plasma creatinine m easurement (mass/volume)on 11-17-2021 Creatinine [Mass/Vol] 1.25 mg/dL 0.55-1.02 [facility] Work Phone: Comment on above: The validity of the calculated GFR & GFRAA in patients over 70 years has not been determined. Clinical correlation is essential. Serum or plasma urea nitroge n measurement (mass/volume)on 11-17-2021 Urea nitrogen [Mass/Vol] 22 mg/dL 7-18 [facility] Work Phone: Thin prep Papanicolaou smear with manual screeningon 11-17-2021 Thin prep Papanicolaou smear with manual screening 6 5-15 [facility] Work Phone: Absolute lymphocyte counton 11-06-2021 Lymphocytes Auto (Unsp spec) [#/Vol] 1.86 10*3/uL 0.83-4.51 [facility] Work Phone: Amorphous sediment detection in urine sediment by light microscopyon 11-06-2021 Amorphous sediment LM Ql (Urine sed) 1+ URATE [facility] Work Phone: Basophil percentageon 2021 Basophil percentage 25-50 SEEN /hpf 0-5 [facility] Work Phone: Basophils/100 WBC (Bld) 0.2 % 0-1 [facility] Work Phone: Chloride [Moles/Vol] 113 mmol/L 98-107 [facility] Work Phone: Eosinophils/100 WBC (Bld) 0.8 % 0-5 [facility] Work Phone: Glucose [Mass/Vol] 124 mg/dL 74-[address] [facility] Work Phone: Comment on above: Fasting Glucose resu lt from 100 to 125 mg/dL suggests IMPAIRED HOMEOSTASIS per A.D.A. criteria. Neutrophils (Bld) [#/Vol] 4.0 10*3/uL 2.0-7.7 [facility] Work Phone: Neutrophils/100 WBC (Bld) 63.7 % 47-70 [facility] Work Phone: Potassium [Moles/Vol] 3.9 mmol/L 3.5-5.1 [facility] Work Phone: [phone] Comment on above: Slight Hemolysis, Re sult may be falsely increased. Sodium [Moles/Vol] 142 mmol/L 136-[address] [facility] Work Phone: WBC (Bld) [#/Vol] 6.3 10*3/uL 4.4-11.[address] [facility] Work Phone: Bilirubin Test strip Ql (U)o n 11-06-2021 Bilirubin Ql (U) 1 mg/dL Negative [facility] Work Phone: Comment on above: COLOR OF URINE MAY A FFECT DIPSTICK RESULTS. Blood erythrocytes count (nu mber/volume)on 11-06-2021 RBC (Bld) [#/Vol] 3.49 10*6/uL 4.2-5.4 [facility] Work Phone: Blood hemoglobin measurement (mass/volume)on 11-06-2021 Hemoglobin (Bld) [Mass/Vol] 10.9 g/dL 12.0-15.0 [facility] Work Phone: Blood lymphocytes/100 leukoc yteson 11-06-2021 Lymphocytes/100 WBC (Bld) 29.7 % 19-41 [facility] Work Phone: Blood monocytes/100 leukocyt eson 11-06-2021 Monocytes/100 WBC (Bld) 5.4 % 0-10 [facility] Work Phone: Blood platelet mean volumeon 11-06-2021 Platelet mean volume (Bld) [Entitic vol] 9.7 fL 6.2-12.0 [facility] Work Phone: Determination of erythrocyte mean corpuscular volume (MCV)on 11-06-2021 MCV (RBC) [Entitic vol] 93.1 fL 81-99 [facility] Work Phone: Hematocrit Auto (Bld) [Volum e fraction]on 11-06-2021 Hematocrit (Bld) [Volume fraction] 32.5 % 37-47 [facility] Work Phone: Ketones Test strip Ql (U)on 11-06-2021 Ketones Ql (U) Negative Negative [facility] Work Phone: Laboratory - Chemistry and C hemistry - challengeon 11-06-2021 CO2 [Moles/Vol] 22.0 mmol/L 21.0-32.0 [facility] Work Phone: Natriuretic peptide B (Bld) [Mass/Vol] 204.9 pg/mL 0-100 [facility] Work Phone: Urea nitrogen/Creatinine [Mass ratio] 18.3 mg/mg 10-20 [facility] Work Phone: Laboratory - Hematology and Cell countson 11-06-2021 Erythrocyte distribution width (RBC) [Entitic vol] 48.6 fL 35.1-43.9 [facility] Work Phone: Erythrocyte distribution width (RBC) [Ratio] 14.4 % 11.6-14.6 [facility] Work Phone: Immature granulocytes/100 WBC (Bld) 0.200 % 0.0-0.9 [facility] Work Phone: Comment on above: IG% - Immature Granu locytes (promyelocytes, myelocytes and metamyelocytes) > 1% indicates that a LEFT SHIFT is Present. MCH (RBC) [Entitic mass] 31.2 pg 27.0-32.0 [facility] Work Phone: Nucleated RBC/100 WBC (Bld) [Ratio] 0 % 0-5 [facility] Work Phone: MCHC Auto (RBC) [Mass/Vol]on 11-06-2021 MCHC (RBC) [Mass/Vol] 33.5 g/dL 32-36 [facility] Work Phone: Mucus LM Ql (Urine sed)on Mucus Ql (Urine sed) 0 SEEN /hpf [facility] Work Phone: Nitrite Test strip Ql (U)on 11-06-2021 Nitrite Ql (U) Positive Negative [facility] Work Phone: No Panel Informationon 11-06 SARS-CoV-2 & FLU Antigen (Rapid) [facility] Work Phone: Estimated Creatinine Clearance Calc 52.73 ml/min [facility] Work Phone: Estimated GFR (MDRD) Amer 68 mL/min >60 [facility] Work Phone: Comment on above: GFR Calc Estimated GFR (MDRD) Non-Af Amer 56 mL/min >60 [facility] Work Phone: Comment on above: Non- GFR Calc Troponin I High Sensitivity 4 pg/mL 3.0-54.0 [facility] Work Phone: Comment on above: Please Note: [place] t Units and Gender Specific Reference Ranges. For more information see Policy Stat Procedure [place] High Sensitivity Troponin (TNIH) and attachments. Platelets bldon 11-06-2021 Platelets (Bld) [#/Vol] 222 10*3/uL 150-450 [facility] Work Phone: Protein Test strip Ql (U)on 11-06-2021 Protein Ql (U) 30 mg/dl Negative [facility] Work Phone: Serum or plasma calcium oliver urement (mass/volume)on 11-06-2021 Calcium [Mass/Vol] 9.2 mg/dL 8.5-10.1 [facility] Work Phone: Serum or plasma creatinine m easurement (mass/volume)on 11-06-2021 Creatinine [Mass/Vol] 1.09 mg/dL 0.55-1.02 [facility] Work Phone: Comment on above: The validity of the calculated GFR & GFRAA in patients over 70 years has not been determined. Clinical correlation is essential. Serum or plasma urea nitroge n measurement (mass/volume)on 11-06-2021 Urea nitrogen [Mass/Vol] 20 mg/dL 7-18 [facility] Work Phone: Squamous epithelial cells de tection in urine sediment by light microscopyon 11-06-2021 Epithelial cells.squamous LM Ql (Urine sed) 0-5 SEEN /hpf 5-10 [facility] Work Phone: Thin prep Papanicolaou smear with manual screeningon 11-06-2021 Thin prep Papanicolaou smear with manual screening 7 5-15 [facility] Work Phone: Urine blood detectionon 06-0 RBC Ql (U) 150 /ul Negative [facility] Work Phone: RBC Ql (U) 10-25 SEEN /hpf 0-5 [facility] Work Phone: Urine clarityon 11-06-2021 Clarity (U) Sl. Cloudy Clear [facility] Work Phone: Urine color determinationon 11-06-2021 Color (U) Yellow Yellow [facility] Work Phone: Urine glucose detectionon Glucose Ql (U) 1000 mg/dl Normal [facility] Work Phone: Urine leukocyte esterase det ection by dipstickon 11-06-2021 Leukocyte esterase Test strip Ql (U) 100 /ul Negative [facility] Work Phone: Urine pHon 11-06-2021 pH (U) 6.0 [pH] 5.0 - 8.0 [facility] Work Phone: Urine sediment bacteria coun t by microscopy (number/high power field)on 11-06-2021 Bacteria LM.HPF (Urine sed) [#/Area] 1 /[HPF] None Seen [facility] Work Phone: Urine specific gravity measu rementon 11-06-2021 Specific gravity (U) [Rel density] 1.010 1.002-1.030 [facility] Work Phone: Urobilinogen Auto test strip Ql (U)on 11-06-2021 Urobilinogen Ql (U) 4 mg/dl Normal [facility] Work Phone: Laboratory - Drug toxicology on 10-27-2021 Amphetamines Ql (U) Negative [facility] Work Phone: Benzodiazepines Ql (U) Negative luis manuel [facility] Work Phone: Cannabinoids Screen Ql (U) Negative [facility] Work Phone: Cocaine Ql (U) Negative [facility] Work Phone: Opiates Ql (U) Positive [facility] Work Phone: No Panel Informationon 10-27 MDMA (Ecstasy) Screen Negative [facility] Work Phone: Miscellaneous Test See comment [facility] Work Phone: Comment on above: [id number] 6+OXYCODONE-B UND (ng/mL) DRUG RESULT SCREEN CUTOFF____ Amphetamines,Urine Negative ng/mL 1000 Amphetamine test includes Amphetamine and Methamphetamine.Barbiturates Negative ng/mL 200Benzodiazepines Negative ng/mL 200Cannabinoid Negative ng/mL 20Cocaine (Metab) Negative ng/mL 300Opiates Negative ng/mL 300 Opiates test includes Codeine, Morphine, Hydromorphone, Hydrocodone. Oxycodone/Oxymorphone,Urine Positive ng/mL 300 Test includes Oxydodone and Oxymorphone. Oxycodone Positive [place]one [place], [place] 2438 ng/mL 300 Oxymorphone Positive Oxymorphone Conf, [place], UR 755 ng/mL 300 TESTING PERFORMED AT [facility]. ORIGINAL REPORT ON FILE IN LAB CONTAINS ADDITIONAL TEST SITE INFORMATION. Urine Barbiturates Screen Negative [facility] Work Phone: Urine Drug Screen Comment [facility] Work Phone: Comment on above: CONFIRMATORY TESTING FOR ALL POSITIVE URINE DRUG SCREENRESULTS WILL ONLY BE SENT OUT UPON PHYSICIAN ORDER. VISTA Urine Drug Screen methods provide only preliminaryanalytical test results. A more specific alternate chemicalmethod must be used in order to obtain a confirmedanalytical result. Gas chromatography/mass spectrometery(GC/MS) is the preferred confirmatory method. Clinicalconsideration and professional judgement should be appliedto any drug of abuse test result, particularly whenpreliminary positive results are used. URINE TCA TESTING MUST BE ORDERED SEPARATELY. USE TESTMNEMONIC: [facility] Urine Methadone Screen Negative [facility] Work Phone: Urine phencyclidine (PCP) de tectionon 10-27-2021 Phencyclidine Ql (U) Negative [facility] Work Phone: Absolute lymphocyte counton 09-20-2021 Lymphocytes Auto (Unsp spec) [#/Vol] 1.77 10*3/uL 0.83-4.51 [facility] Work Phone: Basophil percentageon 2021 Bilirubin [Mass/Vol] 0.50 mg/dL 0.20-1.00 [facility] Work Phone: Comment on above: For patients on eltr ombopag therapy, use of Dimension [place] TBIL is not recommended. Chloride [Moles/Vol] 108 mmol/L 98-107 [facility] Work Phone: Glucose [Mass/Vol] 189 mg/dL 74-[address] [facility] Work Phone: Comment on above: Fasting Glucose resu lt greater than or equal to 126 mg/dL suggests DIABETES MELLITUS per A.D.A. criteria. Potassium [Moles/Vol] 3.8 mmol/L 3.5-5.1 [facility] Work Phone: Protein [Mass/Vol] 7.3 g/dL 6.4-8.[address] [facility] Work Phone: Sodium [Moles/Vol] 141 mmol/L 136-[address] [facility] Work Phone: Basophils/100 WBC (Bld) 0.4 % 0-1 [facility] Work Phone: Eosinophils/100 WBC (Bld) 1.5 % 0-5 [facility] Work Phone: [phone] Neutrophils (Bld) [#/Vol] 3.3 10*3/uL 2.0-7.7 [facility] Work Phone: Neutrophils/100 WBC (Bld) 59.2 % 47-70 [facility] Work Phone: WBC (Bld) [#/Vol] 5.5 10*3/uL 4.4-11.[address] [facility] Work Phone: Blood erythrocytes count (nu mber/volume)on 09-20-2021 RBC (Bld) [#/Vol] 4.11 10*6/uL 4.2-5.4 [facility] Work Phone: [phone] Blood hemoglobin measurement (mass/volume)on 09-20-2021 Hemoglobin (Bld) [Mass/Vol] 12.6 g/dL 12.0-15.0 [facility] Work Phone: Blood lymphocytes/100 leukoc yteson 09-20-2021 Lymphocytes/100 WBC (Bld) 32.3 % 19-41 [facility] Work Phone: Blood monocytes/100 leukocyt eson 09-20-2021 Monocytes/100 WBC (Bld) 6.2 % 0-10 [facility] Work Phone: Blood platelet mean volumeon 09-20-2021 Platelet mean volume (Bld) [Entitic vol] 10.4 fL 6.2-12.0 [facility] Work Phone: Determination of erythrocyte mean corpuscular volume (MCV)on 09-20-2021 MCV (RBC) [Entitic vol] 91.7 fL 81-99 [facility] Work Phone: Hematocrit Auto (Bld) [Volum e fraction]on 09-20-2021 Hematocrit (Bld) [Volume fraction] 37.7 % 37-47 [facility] Work Phone: Laboratory - Chemistry and C hemistry - challengeon 09-20-2021 ALP [Catalytic activity/Vol] 61 U/L 45-117 [facility] Work Phone: ALT [Catalytic activity/Vol] 23 U/L 13-56 [facility] Work Phone: CO2 [Moles/Vol] 26.0 mmol/L 21.0-32.0 [facility] Work Phone: Globulin (S) [Mass/Vol] 4.1 g/dL 2.2-4.2 [facility] Work Phone: Urea nitrogen/Creatinine [Mass ratio] 19.0 mg/mg 10-20 [facility] Work Phone: Laboratory - Hematology and Cell countson 09-20-2021 Erythrocyte distribution width (RBC) [Entitic vol] 43.5 fL 35.1-43.9 [facility] Work Phone: Erythrocyte distribution width (RBC) [Ratio] 12.8 % 11.6-14.6 [facility] Work Phone: Immature granulocytes/100 WBC (Bld) 0.400 % 0.0-0.9 [facility] Work Phone: Comment on above: IG% - Immature Granu locytes (promyelocytes, myelocytes and metamyelocytes) > 1% indicates that a LEFT SHIFT is Present. MCH (RBC) [Entitic mass] 30.7 pg 27.0-32.0 [facility] Work Phone: Nucleated RBC/100 WBC (Bld) [Ratio] 0 % 0-5 [facility] Work Phone: MCHC Auto (RBC) [Mass/Vol]on 09-20-2021 MCHC (RBC) [Mass/Vol] 33.4 g/dL 32-36 [facility] Work Phone: No Panel Informationon 09-20 Estimated Creatinine Clearance Calc 63.04 ml/min [facility] Work Phone: Estimated GFR (MDRD) Amer 80 mL/min >60 [facility] Work Phone: Comment on above: GFR Calc Estimated GFR (MDRD) Non-Af Amer 66 mL/min >60 [facility] Work Phone: Comment on above: Non- GFR Calc Platelets bldon 09-20-2021 Platelets (Bld) [#/Vol] 256 10*3/uL 150-450 [facility] Work Phone: Serum or plasma albumin oliver urement (mass/volume)on 09-20-2021 Albumin [Mass/Vol] 3.2 g/dL 3.2-5.[address] [facility] Work Phone: Serum or plasma albumin/glob ulin mass ratioon 09-20-2021 Albumin/Globulin [Mass ratio] 0.8 {ratio} 0.9-2.4 [facility] Work Phone: Serum or plasma calcium oliver urement (mass/volume)on 09-20-2021 Calcium [Mass/Vol] 9.1 mg/dL 8.5-10.[address] [facility] Work Phone: Serum or plasma creatinine m easurement (mass/volume)on 09-20-2021 Creatinine [Mass/Vol] 0.95 mg/dL 0.55-1.02 [facility] Work Phone: Comment on above: The validity of the calculated GFR & GFRAA in patients over 70 years has not been determined. Clinical correlation is essential. Serum or plasma urea nitroge n measurement (mass/volume)on 09-20-2021 Urea nitrogen [Mass/Vol] 18 mg/dL 7-18 [facility] Work Phone: Thin prep Papanicolaou smear with manual screeningon 09-20-2021 Thin prep Papanicolaou smear with manual screening 15 U/L 15-37 [facility] Work Phone: Thin prep Papanicolaou smear with manual screening 7 5-15 [facility] Work Phone: Glucose Glucometer (BldC) [M ass/Vol]on 09-16-2021 Glucose [Mass/Vol] 310 mg/dL 74-[address] [facility] Work Phone: Comment on above: MANAGEMENT OF PATIEN T CARE PER NURSING PROTOCOL Absolute lymphocyte counton 09-14-2021 Lymphocytes Auto (Unsp spec) [#/Vol] 1.79 10*3/uL 0.83-4.51 [facility] Work Phone: [phone] Basophil percentageon 2021 Basophils/100 WBC (Bld) 0.1 % 0-1 [facility] Work Phone: Bilirubin [Mass/Vol] 0.50 mg/dL 0.20-1.00 [facility] Work Phone: Comment on above: For patients on eltr ombopag therapy, use of Dimension [place] TBIL is not recommended. Chloride [Moles/Vol] 107 mmol/L 98-107 [facility] Work Phone: Eosinophils/100 WBC (Bld) 0.2 % 0-5 [facility] Work Phone: Glucose [Mass/Vol] 154 mg/dL 74-[address] [facility] Work Phone: Comment on above: Fasting Glucose resu lt greater than or equal to 126 mg/dL suggests DIABETES MELLITUS per A.D.A. criteria. Neutrophils (Bld) [#/Vol] 6.7 10*3/uL 2.0-7.7 [facility] Work Phone: Neutrophils/100 WBC (Bld) 73.2 % 47-70 [facility] Work Phone: Potassium [Moles/Vol] 3.9 mmol/L 3.5-5.1 [facility] Work Phone: Protein [Mass/Vol] 7.0 g/dL 6.4-8.[address] [facility] Work Phone: Sodium [Moles/Vol] 137 mmol/L 136-[address] [facility] Work Phone: WBC (Bld) [#/Vol] 9.1 10*3/uL 4.4-11.[address] [facility] Work Phone: Blood erythrocytes count (nu mber/volume)on 09-14-2021 RBC (Bld) [#/Vol] 4.08 10*6/uL 4.2-5.4 [facility] Work Phone: Blood hemoglobin measurement (mass/volume)on 09-14-2021 Hemoglobin (Bld) [Mass/Vol] 12.4 g/dL 12.0-15.0 [facility] Work Phone: Blood lymphocytes/100 leukoc yteson 09-14-2021 Lymphocytes/100 WBC (Bld) 19.7 % 19-41 [facility] Work Phone: Blood monocytes/100 leukocyt eson 09-14-2021 Monocytes/100 WBC (Bld) 6.5 % 0-10 [facility] Work Phone: Blood platelet mean volumeon 09-14-2021 Platelet mean volume (Bld) [Entitic vol] 10.6 fL 6.2-12.0 [facility] Work Phone: Determination of erythrocyte mean corpuscular volume (MCV)on 09-14-2021 MCV (RBC) [Entitic vol] 90.2 fL 81-99 [facility] Work Phone: Glucose Glucometer (BldC) [M ass/Vol]on 09-14-2021 Glucose [Mass/Vol] 120 mg/dL 74-[address] [facility] Work Phone: Comment on above: MANAGEMENT OF PATIEN T CARE PER NURSING PROTOCOL Hematocrit Auto (Bld) [Volum e fraction]on 09-14-2021 Hematocrit (Bld) [Volume fraction] 36.8 % 37-47 [facility] Work Phone: Laboratory - Chemistry and C hemistry - challengeon 09-14-2021 ALP [Catalytic activity/Vol] 56 U/L 45-117 [facility] Work Phone: ALT [Catalytic activity/Vol] 19 U/L 13-56 [facility] Work Phone: CO2 [Moles/Vol] 24.0 mmol/L 21.0-32.0 [facility] Work Phone: Globulin (S) [Mass/Vol] 3.8 g/dL 2.2-4.2 [facility] Work Phone: Urea nitrogen/Creatinine [Mass ratio] 40.4 mg/mg 10-20 [facility] Work Phone: Laboratory - Hematology and Cell countson 09-14-2021 Erythrocyte distribution width (RBC) [Entitic vol] 43.0 fL 35.1-43.9 [facility] Work Phone: Erythrocyte distribution width (RBC) [Ratio] 13.0 % 11.6-14.6 [facility] Work Phone: Immature granulocytes/100 WBC (Bld) 0.300 % 0.0-0.9 [facility] Work Phone: Comment on above: IG% - Immature Granu locytes (promyelocytes, myelocytes and metamyelocytes) > 1% indicates that a LEFT SHIFT is Present. MCH (RBC) [Entitic mass] 30.4 pg 27.0-32.0 [facility] Work Phone: Nucleated RBC/100 WBC (Bld) [Ratio] 0 % 0-5 [facility] Work Phone: MCHC Auto (RBC) [Mass/Vol]on 09-14-2021 MCHC (RBC) [Mass/Vol] 33.7 g/dL 32-36 [facility] Work Phone: No Panel Informationon 09-14 Estimated Creatinine Clearance Calc 62.47 ml/min [facility] Work Phone: Estimated GFR (MDRD) Amer 83 mL/min >60 [facility] Work Phone: Comment on above: GFR Calc Estimated GFR (MDRD) Non-Af Amer 69 mL/min >60 [facility] Work Phone: Comment on above: Non- GFR Calc Platelets bldon 09-14-2021 Platelets (Bld) [#/Vol] 222 10*3/uL 150-450 [facility] Work Phone: Serum or plasma albumin oliver urement (mass/volume)on 09-14-2021 Albumin [Mass/Vol] 3.2 g/dL 3.2-5.[address] [facility] Work Phone: Serum or plasma albumin/glob ulin mass ratioon 09-14-2021 Albumin/Globulin [Mass ratio] 0.8 {ratio} 0.9-2.4 [facility] Work Phone: Serum or plasma calcium oliver urement (mass/volume)on 09-14-2021 Calcium [Mass/Vol] 8.8 mg/dL 8.5-10.[address] [facility] Work Phone: Serum or plasma creatinine m easurement (mass/volume)on 09-14-2021 Creatinine [Mass/Vol] 0.92 mg/dL 0.55-1.02 [facility] Work Phone: Comment on above: The validity of the calculated GFR & GFRAA in patients over 70 years has not been determined. Clinical correlation is essential. Serum or plasma urea nitroge n measurement (mass/volume)on 09-14-2021 Urea nitrogen [Mass/Vol] 37 mg/dL 7-18 [facility] Work Phone: Thin prep Papanicolaou smear with manual screeningon 09-14-2021 Thin prep Papanicolaou smear with manual screening 11 U/L 15-37 [facility] Work Phone: Thin prep Papanicolaou smear with manual screening 6 5-15 [facility] Work Phone: Assessment of wrist artery p atency prior to arterial punctureon 09-09-2021 Arterial patency Wrist artery --pre arterial puncture N/A [facility] Work Phone: Base excesson 09-09-2021 Base excess Calc (BldV) [Moles/Vol] -3 mmol/L -2-2 [facility] Work Phone: Basophil percentageon 2021 Cholesterol [Mass/Vol] 134 mg/dL <200 [facility] Work Phone: Comment on above: <200 mg/dL Desirable 200-240 mg/dL Borderline >240 mg/dL High Risk Lactate [Moles/Vol] 2.0 mmol/L 0.4-2.0 [facility] Work Phone: Comment on above: Critical Result(s) C alled at: 02:39:21 09/09/2021 by: ROBERT Galeano ICT EDUCATOR. Results read back by same. Triglyceride [Mass/Vol] 69 mg/dL [facility] Work Phone: Comment on above: The drugs N-Acetylcy steine and Metamizole may falsely depress this assay.Serum Triglycerides Reference Interval Normal <150 mg/dL Borderline high 150 - 199 mg/dL High 200 - 499 mg/dL Very High > or = 500 mg/dL Basophil percentage 22.1 mmol/L 22-26 [facility] Work Phone: Basophils/100 WBC (Bld) 99 % 95-99 [facility] Work Phone: CO2 (BldA) [Partial pressure ]on 09-09-2021 CO2 (Bld) [Partial pressure] 39.1 mm[Hg] 35-45 [facility] Work Phone: No Panel Informationon 09-09 Troponin I High Sensitivity 1525 pg/mL 3.0-54.0 [facility] Work Phone: Comment on above: Critical Result(s) C alled at: 02:39:06 09/09/2021 by: ROBERT Galeano ICT EDUCATOR. Results read back by same. Please Note: New Test Units and Gender Specific Reference Ranges. For more information see Policy Stat Procedure [place] High Sensitivity Troponin (TNIH) and attachments. Bedside Blood Gas PEEP 5 [facility] Work Phone: Blood Gas Oxygen Percent 70 [facility] Work Phone: Blood Gas Respiration Rate 14 [facility] Work Phone: Blood Gas Sample Site L Radial [facility] Work Phone: Blood Gas Specimen Type ART [facility] Work Phone: Blood Gas Tidal Volume 450 [facility] Work Phone: Blood Gas Total CO2 23 mmol/L [facility] Work Phone: Blood Gas Vent Mode AC [facility] Work Phone: Oxygen Delivery Device Adult Vent [facility] Work Phone: Oxygen (BldA) [Partial press ure]on 09-09-2021 Oxygen (Bld) [Partial pressure] 125 mmHG 75-100 [facility] Work Phone: Serum or plasma cholesterol in HDL measurement (mass/volume)on 09-09-2021 Cholesterol in HDL [Mass/Vol] 65 mg/dL [facility] Work Phone: Comment on above: The drugs N-Acetylcy steine and Metamizole may falsely depress this assay. Reference Range HDL <40 mg/dL Low HDL Cholesterol HDL >or= 60 mg/dL High HDL Cholesterol Serum or plasma cholesterol in VLDL measurement (mass/volume)on 09-09-2021 Cholesterol in VLDL [Mass/Vol] 14 mg/dL 5-40 [facility] Work Phone: Serum or plasma low density lipoprotein (LDL) cholesterol measurement (mass/volume)on 09-09-2021 Cholesterol in LDL [Mass/Vol] 55 mg/dL 0-130 [facility] Work Phone: pH measurementon 09-09-2021 pH (Unsp spec) 7.36 [pH] 7.35-7.45 [facility] Work Phone: Absolute lymphocyte counton 09-08-2021 Lymphocytes Auto (Unsp spec) [#/Vol] 6.24 10*3/uL 0.83-4.51 [facility] Work Phone: Assessment of wrist artery p atency prior to arterial punctureon 09-08-2021 Arterial patency Wrist artery --pre arterial puncture N/A [facility] Work Phone: Base excesson 09-08-2021 Base excess Calc (BldV) [Moles/Vol] -10 mmol/L -2-2 [facility] Work Phone: Basophil percentageon 2021 Basophil percentage 17.7 mmol/L 22-26 [facility] Work Phone: Basophils/100 WBC (Bld) 96 % 95-99 [facility] Work Phone: Basophils/100 WBC (Bld) 0.4 % 0-1 [facility] Work Phone: Chloride [Moles/Vol] 105 mmol/L 98-107 [facility] Work Phone: Eosinophils/100 WBC (Bld) 0.3 % 0-5 [facility] Work Phone: Glucose [Mass/Vol] 468 mg/dL 74-[address] [facility] Work Phone: Comment on above: Critical Result(s) C alled at: 21:06:03 09/08/2021 by: MARIA T GÓMEZ TO TALISHA DURON. Results read back by same.Glucose result greater than or equal to 200 mg/dLsuggests DIABETES MELLITUS per A.D.A. criteria. Lactate [Moles/Vol] 7.6 mmol/L 0.4-2.0 [facility] Work Phone: Comment on above: Critical Result(s) C alled at: 21:30:56 09/08/2021 by: MARIA T GÓMEZ TO MIKE JURADO. Results read back by same. Neutrophils (Bld) [#/Vol] 7.9 10*3/uL 2.0-7.7 [facility] Work Phone: Neutrophils/100 WBC (Bld) 54.0 % 47-70 [facility] Work Phone: Potassium [Moles/Vol] 4.0 mmol/L 3.5-5.1 [facility] Work Phone: Sodium [Moles/Vol] 137 mmol/L 136-[address] [facility] Work Phone: WBC (Bld) [#/Vol] 14.7 10*3/uL 4.4-11.0 [facility] Work Phone: Basophil percentage 0-5 SEEN /hpf [facility] Work Phone: Bilirubin Test strip Ql (U)o n 09-08-2021 Bilirubin Ql (U) Negative Negative [facility] Work Phone: Blood erythrocytes count (nu mber/volume)on 09-08-2021 RBC (Bld) [#/Vol] 4.74 10*6/uL 4.2-5.4 [facility] Work Phone: Blood hemoglobin measurement (mass/volume)on 09-08-2021 Hemoglobin (Bld) [Mass/Vol] 14.6 g/dL 12.0-15.0 [facility] Work Phone: Blood lymphocytes/100 leukoc yteson 09-08-2021 Lymphocytes/100 WBC (Bld) 42.3 % 19-41 [facility] Work Phone: Blood manual differential co mment interpretation (narrative result)on 09-08-2021 Manual differential comment Jacob (Bld) [Interp] See comment [facility] Work Phone: Comment on above: LYMPHOCYTOSIS NOTED Blood monocytes/100 leukocyt eson 09-08-2021 Monocytes/100 WBC (Bld) 2.6 % 0-10 [facility] Work Phone: Blood platelet adequacy dete ction by light microscopyon 09-08-2021 Platelets LM Ql (Bld) ADEQUATE ADEQ [facility] Work Phone: Blood platelet mean volumeon 09-08-2021 Platelet mean volume (Bld) [Entitic vol] 10.9 fL 6.2-12.0 [facility] Work Phone: Bronchoalveolar lavage cultu re with Gram stainon 09-08-2021 Respiratory microbial culture or Staphylococcus aureus isolated. [facility] Work Phone: CO2 (BldA) [Partial pressure ]on 09-08-2021 CO2 (Bld) [Partial pressure] 43.9 mm[Hg] 35-45 [facility] Work Phone: Determination of erythrocyte mean corpuscular volume (MCV)on 09-08-2021 MCV (RBC) [Entitic vol] 98.7 fL 81-99 [facility] Work Phone: Gram stain for investigation of transfusion reactionon 09-08-2021 Microscopic observation Gram stain Nom (Unsp spec) [facility] Work Phone: Hematocrit Auto (Bld) [Volum e fraction]on 09-08-2021 Hematocrit (Bld) [Volume fraction] 46.8 % 37-47 [facility] Work Phone: INR in Blood by Coagulation assayon 09-08-2021 INR Coag (Bld) [Relative time] 1.1 {INR} [facility] Work Phone: Ketones Test strip Ql (U)on 09-08-2021 Ketones Ql (U) Negative Negative [facility] Work Phone: Laboratory - Chemistry and C hemistry - challengeon 09-08-2021 CO2 [Moles/Vol] 19.0 mmol/L 21.0-32.0 [facility] Work Phone: Magnesium [Mass/Vol] 2.3 mg/dL 1.6-2.6 [facility] Work Phone: Natriuretic peptide B (Bld) [Mass/Vol] 618.5 pg/mL 0-100 [facility] Work Phone: Urea nitrogen/Creatinine [Mass ratio] 17.1 mg/mg 10-20 [facility] Work Phone: Laboratory - Coagulationon 0 09-08-2021 aPTT Coag (Bld) [Time] 31.1 s 24.1-36.2 luis manuel [facility] Work Phone: PT Coag (PPP) [Time] 13.6 s 11.7-14.9 [facility] Work Phone: Laboratory - Hematology and Cell countson 09-08-2021 Erythrocyte distribution width (RBC) [Entitic vol] 48.1 fL 35.1-43.9 [facility] Work Phone: Erythrocyte distribution width (RBC) [Ratio] 13.1 % 11.6-14.6 [facility] Work Phone: Immature granulocytes/100 WBC (Bld) 0.400 % 0.0-0.9 [facility] Work Phone: Comment on above: IG% - Immature Granu locytes (promyelocytes, myelocytes and metamyelocytes) > 1% indicates that a LEFT SHIFT is Present. MCH (RBC) [Entitic mass] 30.8 pg 27.0-32.0 [facility] Work Phone: Nucleated RBC/100 WBC (Bld) [Ratio] 0 % 0-5 [facility] Work Phone: Laboratory - Microbiology an d Antimicrobial susceptibilityon 09-08-2021 Bacteria identified Cx Nom (Bld) No growth in 5 days. [facility] Work Phone: MCHC Auto (RBC) [Mass/Vol]on 09-08-2021 MCHC (RBC) [Mass/Vol] 31.2 g/dL 32-36 [facility] Work Phone: Mucus LM Ql (Urine sed)on Mucus Ql (Urine sed) 0 SEEN /hpf [facility] Work Phone: Nitrite Test strip Ql (U)on 09-08-2021 Nitrite Ql (U) Negative Negative [facility] Work Phone: No Panel Informationon 09-08 Troponin I High Sensitivity 226 pg/mL 3.0-54.0 [facility] Work Phone: Comment on above: Critical Result(s) C alled at: 23:08:48 09/08/2021 by: MARIA T GÓMEZ TO ALONZO ERICKSON. Results read back by same. Please Note: New Test Units and Gender Specific Reference Ranges. For more information see Policy Stat Procedure [place] High Sensitivity Troponin (TNIH) and attachments. Bedside Blood Gas PEEP 5 [facility] Work Phone: Blood Gas Oxygen Percent 100 [facility] Work Phone: Blood Gas Respiration Rate 14 [facility] Work Phone: Blood Gas Sample Site L Radial [facility] Work Phone: Blood Gas Specimen Type ART [facility] Work Phone: Blood Gas Tidal Volume 450 [facility] Work Phone: Blood Gas Total CO2 19 mmol/L [facility] Work Phone: Blood Gas Vent Mode AC [facility] Work Phone: Oxygen Delivery Device Adult Vent [facility] Work Phone: Estimated Creatinine Clearance Calc 39.37 ml/min [facility] Work Phone: Estimated GFR (MDRD) Amer 48 mL/min >60 [facility] Work Phone: Comment on above: GFR Calc Estimated GFR (MDRD) Non-Af Amer 40 mL/min >60 [facility] Work Phone: Comment on above: Non- GFR Calc Urine Transitional Epithelial Cells 0-5 SEEN /hpf [facility] Work Phone: Oxygen (BldA) [Partial press ure]on 09-08-2021 Oxygen (Bld) [Partial pressure] 101 mmHG 75-100 [facility] Work Phone: Platelets bldon 09-08-2021 Platelets (Bld) [#/Vol] 280 10*3/uL 150-450 [facility] Work Phone: Protein Test strip Ql (U)on 09-08-2021 Protein Ql (U) 100 mg/dl Negative [facility] Work Phone: RBC morphologyon 09-08-2021 RBC morphology finding Nom (Bld) NORM C+C NORMAL NORM C&C [facility] Work Phone: Serum or plasma calcium oliver urement (mass/volume)on 09-08-2021 Calcium [Mass/Vol] 9.2 mg/dL 8.5-10.1 [facility] Work Phone: Serum or plasma creatinine m easurement (mass/volume)on 09-08-2021 Creatinine [Mass/Vol] 1.46 mg/dL 0.55-1.02 [facility] Work Phone: Comment on above: The validity of the calculated GFR & GFRAA in patients over 70 years has not been determined. Clinical correlation is essential. Serum or plasma urea nitroge n measurement (mass/volume)on 09-08-2021 Urea nitrogen [Mass/Vol] 25 mg/dL 7-18 [facility] Work Phone: Squamous epithelial cells de tection in urine sediment by light microscopyon 09-08-2021 Epithelial cells.squamous LM Ql (Urine sed) 0 SEEN /hpf [facility] Work Phone: Thin prep Papanicolaou smear with manual screeningon 09-08-2021 Thin prep Papanicolaou smear with manual screening 13 5-15 [facility] Work Phone: Urine blood detectionon 04-0 RBC Ql (U) 250 /ul Negative [facility] Work Phone: RBC Ql (U) 10-25 SEEN /hpf [facility] Work Phone: Urine clarityon 09-08-2021 Clarity (U) Sl. Cloudy Clear [facility] Work Phone: Urine color determinationon 09-08-2021 Color (U) Yellow Yellow [facility] Work Phone: Urine glucose detectionon Glucose Ql (U) 1000 mg/dl Normal [facility] Work Phone: Urine leukocyte esterase det ection by dipstickon 09-08-2021 Leukocyte esterase Test strip Ql (U) Negative Negative [facility] Work Phone: Urine pHon 09-08-2021 pH (U) 5.0 [pH] [facility] Work Phone: Urine sediment bacteria coun t by microscopy (number/high power field)on 09-08-2021 Bacteria LM.HPF (Urine sed) [#/Area] 1 /[HPF] None Seen [facility] Work Phone: Urine specific gravity measu rementon 09-08-2021 Specific gravity (U) [Rel density] 1.015 [facility] Work Phone: Urobilinogen Auto test strip Ql (U)on 09-08-2021 Urobilinogen Ql (U) Normal mg/dl Normal [facility] Work Phone: pH measurementon 09-08-2021 pH (Unsp spec) 7.22 [pH] 7.35-7.45 [facility] Work Phone: Basophil percentageon 2021 Chloride [Moles/Vol] 116 mmol/L 98-107 [facility] Work Phone: Glucose [Mass/Vol] 159 mg/dL 74-[address] [facility] Work Phone: Comment on above: Fasting Glucose resu lt greater than or equal to 126 mg/dL suggests DIABETES MELLITUS per A.D.A. criteria. Potassium [Moles/Vol] 4.2 mmol/L 3.5-5.1 [facility] Work Phone: Sodium [Moles/Vol] 143 mmol/L 136-[address] [facility] Work Phone: Glucose Glucometer (BldC) [M ass/Vol]on 07-19-2021 Glucose [Mass/Vol] 222 mg/dL 70-[address] [facility] Work Phone: Comment on above: MANAGEMENT OF PATIEN T CARE PER NURSING PROTOCOL Laboratory - Chemistry and C hemistry - challengeon 07-19-2021 CO2 [Moles/Vol] 21.0 mmol/L 21.0-32.0 [facility] Work Phone: Urea nitrogen/Creatinine [Mass ratio] 21.6 mg/mg 10-20 [facility] Work Phone: No Panel Informationon 07-19 Estimated Creatinine Clearance Calc 65.31 ml/min [facility] Work Phone: Estimated GFR (MDRD) Amer 87 mL/min >60 [facility] Work Phone: Comment on above: GFR Calc Estimated GFR (MDRD) Non-Af Amer 72 mL/min >60 [facility] Work Phone: Comment on above: Non- GFR Calc Serum or plasma calcium oliver urement (mass/volume)on 07-19-2021 Calcium [Mass/Vol] 8.4 mg/dL 8.5-10.[address] [facility] Work Phone: Serum or plasma creatinine m easurement (mass/volume)on 07-19-2021 Creatinine [Mass/Vol] 0.88 mg/dL 0.55-1.02 [facility] Work Phone: Comment on above: The validity of the calculated GFR & GFRAA in patients over 70 years has not been determined. Clinical correlation is essential. Serum or plasma urea nitroge n measurement (mass/volume)on 07-19-2021 Urea nitrogen [Mass/Vol] 19 mg/dL 7-18 [facility] Work Phone: Thin prep Papanicolaou smear with manual screeningon 07-19-2021 Thin prep Papanicolaou smear with manual screening 6 5-15 [facility] Work Phone: Absolute lymphocyte counton 07-18-2021 Lymphocytes Auto (Unsp spec) [#/Vol] 2.21 10*3/uL 0.83-4.51 [facility] Work Phone: Basophil percentageon 2021 Basophil percentage 3.9 mg/dL 2.5-4.9 [facility] Work Phone: [phone] Basophils/100 WBC (Bld) 0.3 % 0-1 [facility] Work Phone: Eosinophils/100 WBC (Bld) 0.5 % 0-5 [facility] Work Phone: [phone] Neutrophils (Bld) [#/Vol] 1.5 10*3/uL 2.0-7.7 [facility] Work Phone: [phone] Neutrophils/100 WBC (Bld) 37.1 % 47-70 [facility] Work Phone: WBC (Bld) [#/Vol] 3.9 10*3/uL 4.4-11.[address] [facility] Work Phone: Blood erythrocytes count (nu mber/volume)on 07-18-2021 RBC (Bld) [#/Vol] 3.48 10*6/uL 4.2-5.4 [facility] Work Phone: Blood hemoglobin measurement (mass/volume)on 07-18-2021 Hemoglobin (Bld) [Mass/Vol] 10.9 g/dL 12.0-15.0 [facility] Work Phone: [phone] Blood lymphocytes/100 leukoc yteson 07-18-2021 Lymphocytes/100 WBC (Bld) 56.2 % 19-41 [facility] Work Phone: [phone] Blood monocytes/100 leukocyt eson 07-18-2021 Monocytes/100 WBC (Bld) 5.6 % 0-10 [facility] Work Phone: Blood platelet mean volumeon 07-18-2021 Platelet mean volume (Bld) [Entitic vol] 10.8 fL 6.2-12.0 [facility] Work Phone: [phone] Determination of erythrocyte mean corpuscular volume (MCV)on 07-18-2021 MCV (RBC) [Entitic vol] 96.3 fL 81-99 [facility] Work Phone: Hematocrit Auto (Bld) [Volum e fraction]on 07-18-2021 Hematocrit (Bld) [Volume fraction] 33.5 % 37-47 [facility] Work Phone: [phone] Laboratory - Chemistry and C hemistry - challengeon 07-18-2021 Free T4 [Mass/Vol] 1.34 ng/dL 0.76-1.[address] [facility] Work Phone: Laboratory - Hematology and Cell countson 07-18-2021 Erythrocyte distribution width (RBC) [Entitic vol] 49.4 fL 35.1-43.9 [facility] Work Phone: [phone] Erythrocyte distribution width (RBC) [Ratio] 14.1 % 11.6-14.6 [facility] Work Phone: [phone] Immature granulocytes/100 WBC (Bld) 0.300 % 0.0-0.9 [facility] Work Phone: Comment on above: IG% - Immature Granu locytes (promyelocytes, myelocytes and metamyelocytes) > 1% indicates that a LEFT SHIFT is Present. MCH (RBC) [Entitic mass] 31.3 pg 27.0-32.0 [facility] Work Phone: Nucleated RBC/100 WBC (Bld) [Ratio] 0 % 0-5 [facility] Work Phone: MCHC Auto (RBC) [Mass/Vol]on 07-18-2021 MCHC (RBC) [Mass/Vol] 32.5 g/dL 32-36 [facility] Work Phone: Platelets bldon 07-18-2021 Platelets (Bld) [#/Vol] 159 10*3/uL 150-450 [facility] Work Phone: Basophil percentageon 2021 Basophil percentage 5-10 SEEN /hpf [facility] Work Phone: Lactate [Moles/Vol] 1.2 mmol/L 0.4-2.0 [facility] Work Phone: Bilirubin [Mass/Vol] 0.50 mg/dL 0.20-1.00 [facility] Work Phone: Comment on above: For patients on eltr ombopag therapy, use of Dimension [place] TBIL is not recommended. Protein [Mass/Vol] 8.1 g/dL 6.4-8.[address] [facility] Work Phone: Bilirubin Test strip Ql (U)o n 07-17-2021 Bilirubin Ql (U) Negative Negative [facility] Work Phone: CNOVon 07-17-2021 CNOV Office Visit (UCWSTR ) -- PITO HENDRIX ([id number]) 1970 F Date Time Provider Department 07/17/21 11:30 AM JEISON PONCE [facility] During your visit today, we recorded the following information about you: Temperature Pulse Blood pressure Weight 97.5 degrees 55/minute 90/58 89.7 kg Jeison Ponce APRN.COMPUTER TECHNICIAN 07/17/2021 11:49 AM Signed Subjective HPI Nontoxic-appearing female presents urgent care [...] and time. ASSESSMENT/PLAN: 1. Generalized weakness - ICD (more content not included)... Normal [facility] Ketones Test strip Ql (U)on 07-17-2021 Ketones Ql (U) Negative Negative [facility] Work Phone: Laboratory - Chemistry and C hemistry - challengeon 07-17-2021 ALP [Catalytic activity/Vol] 76 U/L 45-117 [facility] Work Phone: ALT [Catalytic activity/Vol] 25 U/L 13-56 [facility] Work Phone: Globulin (S) [Mass/Vol] 4.4 g/dL 2.2-4.2 [facility] Work Phone: Natriuretic peptide B (Bld) [Mass/Vol] 39.8 pg/mL 0-100 [facility] Work Phone: Mucus LM Ql (Urine sed)on Mucus Ql (Urine sed) 0 SEEN /hpf [facility] Work Phone: Nitrite Test strip Ql (U)on 07-17-2021 Nitrite Ql (U) Negative Negative [facility] Work Phone: No Panel Informationon 07-17 Troponin I High Sensitivity 13 pg/mL 3.0-54.0 [facility] Work Phone: Comment on above: Please Note: [place] t Units and Gender Specific Reference Ranges. For more information see Policy Stat Procedure [place] High Sensitivity Troponin (TNIH) and attachments. D-Dimer Quantitative (PE/DVT) 0.70 FEU/ug/m 0.27-0.49 [facility] Work Phone: Comment on above: D-Dimer ELEVATED (>0 .49): Additional studies and clinicalassessments are indicated to conclude diagnosis of:Deep Vein Thrombosis (DVT) or Pulmonary Embolism (PE)RESULTS CALLED TO KATHY MARKS RN[] 07/17/21 1312 Josefa Kumar.REPORT READ BACK BY []. Protein Test strip Ql (U)on 07-17-2021 Protein Ql (U) Negative Negative [facility] Work Phone: Serum or plasma albumin oliver urement (mass/volume)on 07-17-2021 Albumin [Mass/Vol] 3.7 g/dL 3.2-5.[address] [facility] Work Phone: Serum or plasma albumin/glob ulin mass ratioon 07-17-2021 Albumin/Globulin [Mass ratio] 0.8 {ratio} 0.9-2.4 [facility] Work Phone: Squamous epithelial cells de tection in urine sediment by light microscopyon 07-17-2021 Epithelial cells.squamous LM Ql (Urine sed) 0-5 SEEN /hpf [facility] Work Phone: Thin prep Papanicolaou smear with manual screeningon 07-17-2021 Thin prep Papanicolaou smear with manual screening 18 U/L 15-37 [facility] Work Phone: Urine blood detectionon 07-07 RBC Ql (U) Negative Negative [facility] Work Phone: RBC Ql (U) 0 SEEN /hpf [facility] Work Phone: Urine clarityon 07-17-2021 Clarity (U) Clear Clear [facility] Work Phone: Urine color determinationon 07-17-2021 Color (U) Yellow Yellow [facility] Work Phone: Urine glucose detectionon Glucose Ql (U) Normal mg/dl Normal [facility] Work Phone: Urine leukocyte esterase det ection by dipstickon 07-17-2021 Leukocyte esterase Test strip Ql (U) 100 /ul Negative [facility] Work Phone: Urine pHon 07-17-2021 pH (U) 5.0 [pH] [facility] Work Phone: Urine sediment bacteria coun t by microscopy (number/high power field)on 07-17-2021 Bacteria LM.HPF (Urine sed) [#/Area] RARE /hpf None Seen [facility] Work Phone: Urine specific gravity measu rementon 07-17-2021 Specific gravity (U) [Rel density] 1.010 [facility] Work Phone: Urobilinogen Auto test strip Ql (U)on 07-17-2021 Urobilinogen Ql (U) Normal mg/dl Normal [facility] Work Phone: CNPNon 07-10-2021 CNPN Telephone (UCWSTR) -- PITO HENDRIX ([id number]) 1970 F Date Time Provider Department 07/10/21 KIKI JEFFREY UCWSTR During your visit today, we recorded the following information about you: Kiki Jeffrey APRN.CNP 07/10/2021 9:10 AM Signed Patient identified by name and date of . I advised patient of her positive test result. The CDC recommends that people refrain from work and isolate themselves until the following criteria are met: 1. At least 24 hours have passed since last fever without the use of fever-reducing medications 2. Other symptoms have improved 3. At least 10 days have passed since symptoms first appeared - Follow-up with your PCP in 3-5 days if symptoms have not improved or sooner if symptoms worsen - Discussed red flags and need for immediate medical evaluation if any occur. - Discussed supportive care treatment with fluids, rest and analgesia. - Discussed expected course of illness Kiki Jeffrey APRN.CNP Allergies As of Date: 07/10/2021 Noted Allergy Reaction AUGMENTIN (AMOXICILLIN-POT CLAVUL*07/17/2017 11 - Vomiting Date Reviewed: 07/09/2021 Reviewed by: Estee Peace LPN - Fully Assessed Reason for Visit: Results [95] Prescriptions as of 07/10/2021 - aspirin, enteric coated (ASPIRIN, ENTERIC COATED) 81 mg EC tablet Take 81 mg by mouth once daily. - atorvastatin (LIPITOR) 40 mg tablet Take 40 mg by mouth daily at bedtime. - carvedilol (COREG) 6.25 mg tablet - clopidogrel (PLAVIX) 75 mg tablet - cyclobenzaprine (FLEXERIL) 10 mg tablet Take by mouth. - furosemide (LASIX) 40 mg tablet Take 40 mg by mouth once daily. - glipiZIDE (GLUCOTROL XL) 10mg 24 hr tablet Take 10 mg by mouth twice daily. - hydrOXYzine HCl (ATARAX) 25 mg tablet Take 25 mg by mouth three times daily as needed. - LANTUS SOLOSTAR U-100 INSULIN 100 unit/mL (3 mL) inject 40 units subcutaneously once daily - isosorbide mononitrate ER (IMDUR) 30 mg 24 hr tablet Take 30 mg by mouth once daily. - lisinopril (ZESTRIL, PRINIVIL) 20 mg tablet Take 20 mg by mouth once daily. - omeprazole (PRILOSEC) 20 mg capsule Take by mouth. - potassium chloride ER (K-DUR, KLOR-CON) 20 mEq tablet - tiZANidine (ZANAFLEX) 4 mg tablet Take 4 mg by mouth daily at bedtime. - zolpidem (AMBIEN) 5 mg tablet Take by mouth. - TRAMADOL HCL (TRAMADOL ORAL) Take 50 mg by mouth every 6 hours as needed. Problem List As Of Date: 07/10/2021 (None) Encounter Status:Closed by KIKI JEFFREY on 07/10/21 [facility] CNOVon 07-09-2021 CNOV Office Visit (UCWSTR ) -- PITO HENDRIX ([id number]) 1970 F Date Time Provider Department 07/09/21 9:00 AM MAX LIVE [facility]WSTR During your visit today, we recorded the following information about you: Temperature Pulse Respiration Blood pressure 98.2 degrees 73/minute 18/minute 112/78 Weight 93.4 kg Max Live APRN.[facility] 07/09/2021 9:31 AM Signed CC: Patient presents with: Cough: cough, chills, [...] symptoms occur. Patient agreeable to treatment plan. Max Live APRN.COMPUTER TECHNICIAN Referring Provider: SELF [200] Allergies As of Date: 07/09/2021 Noted Allergy Reaction AUGMENTIN (AMOXICILLIN-POT CLAVUL*07/17/2017 11 - Vomiting Date Reviewed: 07/09/2021 Reviewed by: Estee Peace LPN - Fully Assessed Reason for Visit: Cough [28] Cmt: cough, chills, loss of voice and ST x 2 days Primary Visit Diagnosis:Suspected COVID-19 virus infection [Z20.822] Order(s):COVID WITH FLUA+B, ROUTINE [SQCOVFLU] Order #: [id number] FUTURE Prescriptions as of 07/09/2021 - aspirin, enteric coated (ASPIRIN, ENTERIC COATED) 81 mg EC tablet Take 81 mg by mouth once daily. - atorvastatin (LIPITOR) 40 mg tablet Take 40 mg by mouth daily at bedtime. - carvedilol (COREG) 6.25 mg tablet - clopidogrel (PLAVIX) 75 mg tablet - cyclobenzaprine (FLEXER (more content not included)... Normal [facility] COVID w FLU A+B Routon 07-09 Influenza A PCR Negative Normal [facility] Comment on above: Performed By: #### C OVFLU #### [place] [address] Influenza B PCR Negative Normal [facility] Comment on above: Performed By: #### C OVFLU #### [place] [address] SARS-CoV-2 (COVID-19) RNA ROSALIA+probe Ql (Unsp spec) UPPER RESPIRATORY TRACT SWAB Normal [facility] Comment on above: Performed By: #### C OVFLU #### [place] [phone] SARS-CoV-2 (COVID-19) RNA ROSALIA+probe Ql (Unsp spec) Positive for COVID19 (SARS CoV2) by RT-PCR or equivalent method. Critically abnormal Negative for COVID19 (SARS CoV2) by RT-PCR or equivalent method. [facility] Comment on above: Result Comment: This test was developed and its performance characteristics determined by [facility] [place]. This test has been authorized by FDA under an Emergency Use Authorization (EUA). This test has been validated in accordance with the FDA's Guidance Document Policy for Diagnostics Testing in Laboratories Certified to Perform High Complexity Testing under CLIA prior to Emergency use Authorization for Coronavirus Disease 2019 during the Public Health Emergency issued on August 04, 2019. Test performed by [facility], [facility] [place], [address] [place] [address]. Performed By: #### C OVFLU #### [place] [address] No Panel Informationon 07-07 Miscellaneous Test See comment [facility] Work Phone: Comment on above: TEST RESULT LIMITSTh yrotropin Receptor Ab, Serum <1.10 IU/L 0.00-1.75 ___ TESTING PERFORMED AT [facility]. ORIGINAL REPORT ON FILE IN LAB CONTAINS ADDITIONAL TEST SITE INFORMATION. Thyroglobulin Antibody < 1.0 IU/mL [facility] Work Phone: Comment on above: Thyroglobulin Antibo dy measured by [facility] Thyroglobulin Level 26.3 ng/mL [facility] Work Phone: Comment on above: According to the [facility] Academy of Clinical Biochemistry,the reference interval for Thyroglobulin (TG) should berelated to euthyroid patients and not for patients whounderwent thyroidectomy. TG reference intervals for thesepatients depend on the residual mass of the thyroid tissueleft after surgery. Establishing a post-operative baselineis recommended. The assay limit of quantitation is 0.1ng/mLThyroglobulin measured by Cherelle [place] [facility] Thyroid Stimulating Hormone (TSH) 0.04 uIU/mL 0.358-3.74 [facility] Work Phone: Serum or plasma thyroperoxid ase antibody assay (units/volume)on 07-07-2021 TPO Ab Qn [IU]/mL [facility] Work Phone: Comment on above: Performed at: [address] [id number] Director: Vargas Kim PhD, Phone: [phone] Absolute lymphocyte counton 06-07-2021 Lymphocytes Auto (Unsp spec) [#/Vol] 1.60 10*3/uL 0.83-4.51 [facility] Work Phone: Basophil percentageon 2021 Basophils/100 WBC (Bld) 0.4 % 0-1 [facility] Work Phone: Chloride [Moles/Vol] 105 mmol/L 98-107 [facility] Work Phone: Eosinophils/100 WBC (Bld) 1.3 % 0-5 [facility] Work Phone: Glucose [Mass/Vol] 441 mg/dL 74-[address] [facility] Work Phone: Comment on above: Glucose result great er than or equal to 200 mg/dLsuggests DIABETES MELLITUS per A.D.A. criteria.Please note revised GLUCOSE reference range effective 2017. Neutrophils (Bld) [#/Vol] 3.3 10*3/uL 2.0-7.7 [facility] Work Phone: Neutrophils/100 WBC (Bld) 61.9 % 47-70 [facility] Work Phone: Potassium [Moles/Vol] 3.3 mmol/L 3.5-5.1 [facility] Work Phone: Comment on above: Slight Hemolysis, Re sult may be falsely increased. Sodium [Moles/Vol] 137 mmol/L 136-[address] [facility] Work Phone: WBC (Bld) [#/Vol] 5.3 10*3/uL 4.4-11.[address] [facility] Work Phone: Blood erythrocytes count (nu mber/volume)on 06-07-2021 RBC (Bld) [#/Vol] 4.29 10*6/uL 4.2-5.4 [facility] Work Phone: Blood hemoglobin measurement (mass/volume)on 06-07-2021 Hemoglobin (Bld) [Mass/Vol] 13.3 g/dL 12.0-15.0 [facility] Work Phone: Blood lymphocytes/100 leukoc yteson 06-07-2021 Lymphocytes/100 WBC (Bld) 30.0 % 19-41 [facility] Work Phone: Blood monocytes/100 leukocyt eson 06-07-2021 Monocytes/100 WBC (Bld) 6.2 % 0-10 [facility] Work Phone: Blood platelet mean volumeon 06-07-2021 Platelet mean volume (Bld) [Entitic vol] 10.8 fL 6.2-12.0 [facility] Work Phone: Determination of erythrocyte mean corpuscular volume (MCV)on 06-07-2021 MCV (RBC) [Entitic vol] 89.5 fL 81-99 [facility] Work Phone: Hematocrit Auto (Bld) [Volum e fraction]on 06-07-2021 Hematocrit (Bld) [Volume fraction] 38.4 % 37-47 [facility] Work Phone: INR in Blood by Coagulation assayon 06-07-2021 INR Coag (Bld) [Relative time] 1.0 {INR} [facility] Work Phone: Laboratory - Chemistry and C hemistry - challengeon 06-07-2021 CO2 [Moles/Vol] 23.0 mmol/L 21.0-32.0 [facility] Work Phone: Urea nitrogen/Creatinine [Mass ratio] 17.5 mg/mg 10-20 [facility] Work Phone: Laboratory - Coagulationon 0 06-07-2021 PT Coag (PPP) [Time] 12.1 s 11.7-14.9 [facility] Work Phone: Laboratory - Hematology and Cell countson 06-07-2021 Erythrocyte distribution width (RBC) [Entitic vol] 44.4 fL 35.1-43.9 [facility] Work Phone: Erythrocyte distribution width (RBC) [Ratio] 13.8 % 11.6-14.6 [facility] Work Phone: Immature granulocytes/100 WBC (Bld) 0.200 % 0.0-0.9 [facility] Work Phone: Comment on above: IG% - Immature Granu locytes (promyelocytes, myelocytes and metamyelocytes) > 1% indicates that a LEFT SHIFT is Present. MCH (RBC) [Entitic mass] 31.0 pg 27.0-32.0 [facility] Work Phone: Nucleated RBC/100 WBC (Bld) [Ratio] 0 % 0-5 [facility] Work Phone: MCHC Auto (RBC) [Mass/Vol]on 06-07-2021 MCHC (RBC) [Mass/Vol] 34.6 g/dL 32-36 [facility] Work Phone: No Panel Informationon 06-07 Troponin I High Sensitivity 11 pg/mL 3.0-54.0 [facility] Work Phone: Comment on above: Please Note: [place] t Units and Gender Specific Reference Ranges. For more information see Policy Stat Procedure [place] High Sensitivity Troponin (TNIH) and attachments. Estimated Creatinine Clearance Calc 50.41 ml/min [facility] Work Phone: Estimated GFR (MDRD) Amer 65 mL/min >60 [facility] Work Phone: Comment on above: GFR Calc Estimated GFR (MDRD) Non-Af Amer 53 mL/min >60 [facility] Work Phone: Comment on above: Non- GFR Calc Platelets bldon 06-07-2021 Platelets (Bld) [#/Vol] 227 10*3/uL 150-450 [facility] Work Phone: Serum or plasma calcium oliver urement (mass/volume)on 06-07-2021 Calcium [Mass/Vol] 9.5 mg/dL 8.5-10.[address] [facility] Work Phone: Serum or plasma creatinine m easurement (mass/volume)on 06-07-2021 Creatinine [Mass/Vol] 1.14 mg/dL 0.55-1.02 [facility] Work Phone: Comment on above: The validity of the calculated GFR & GFRAA in patients over 70 years has not been determined. Clinical correlation is essential. Serum or plasma urea nitroge n measurement (mass/volume)on 06-07-2021 Urea nitrogen [Mass/Vol] 20 mg/dL 7-18 [facility] Work Phone: Thin prep Papanicolaou smear with manual screeningon 06-07-2021 Thin prep Papanicolaou smear with manual screening 9 5-15 [facility] Work Phone: Absolute lymphocyte counton 06-04-2021 Lymphocytes Auto (Unsp spec) [#/Vol] 2.23 10*3/uL 0.83-4.51 [facility] Work Phone: Basophil percentageon 2020 Chloride [Moles/Vol] 105 mmol/L 98-107 [facility] Work Phone: Eosinophils/100 WBC (Bld) 0.6 % 0-5 [facility] Work Phone: Glucose [Mass/Vol] 378 mg/dL 74-[address] [facility] Work Phone: Comment on above: Glucose result great er than or equal to 200 mg/dLsuggests DIABETES MELLITUS per A.D.A. criteria.Please note revised GLUCOSE reference range effective 2017. Neutrophils (Bld) [#/Vol] 3.8 10*3/uL 2.0-7.7 [facility] Work Phone: [phone] Potassium [Moles/Vol] 3.2 mmol/L 3.5-5.1 [facility] Work Phone: Sodium [Moles/Vol] 137 mmol/L 136-[address] [facility] Work Phone: WBC (Bld) [#/Vol] 6.4 10*3/uL 4.4-11.[address] [facility] Work Phone: Blood erythrocytes count (nu mber/volume)on 06-04-2021 RBC (Bld) [#/Vol] 4.18 10*6/uL 4.2-5.4 [facility] Work Phone: Blood hemoglobin measurement (mass/volume)on 06-04-2021 Hemoglobin (Bld) [Mass/Vol] 13.1 g/dL 12.0-15.0 [facility] Work Phone: Blood lymphocytes/100 leukoc yteson 06-04-2021 Lymphocytes/100 WBC (Bld) 34.6 % 19-41 [facility] Work Phone: Blood monocytes/100 leukocyt eson 06-04-2021 Monocytes/100 WBC (Bld) 5.9 % 0-10 [facility] Work Phone: Blood platelet mean volumeon 06-04-2021 Platelet mean volume (Bld) [Entitic vol] 10.8 fL 6.2-12.0 [facility] Work Phone: Determination of erythrocyte mean corpuscular volume (MCV)on 06-04-2021 MCV (RBC) [Entitic vol] 90.7 fL 81-99 [facility] Work Phone: [phone] Erythrocyte sedimentation ra samia 06-04-2021 ESR (Bld) [Velocity] 16 mm/h 0-30 [facility] Work Phone: Hematocrit Auto (Bld) [Volum e fraction]on 06-04-2021 Hematocrit (Bld) [Volume fraction] 37.9 % 37-47 [facility] Work Phone: Laboratory - Chemistry and C hemistry - challengeon 06-04-2021 CO2 [Moles/Vol] 24.0 mmol/L 21.0-32.0 [facility] Work Phone: Magnesium [Mass/Vol] 2.1 mg/dL 1.6-2.6 [facility] Work Phone: [phone] Urea nitrogen/Creatinine [Mass ratio] 16.2 mg/mg 10-20 [facility] Work Phone: Laboratory - Hematology and Cell countson 06-04-2021 Basophils/100 WBC (Unsp spec) 0.3 % 0-1 [facility] Work Phone: [phone] Erythrocyte distribution width (RBC) [Entitic vol] 44.9 fL 35.1-43.9 [facility] Work Phone: [phone] Erythrocyte distribution width (RBC) [Ratio] 13.7 % 11.6-14.6 [facility] Work Phone: [phone] Immature granulocytes/100 WBC (Bld) 0.300 % 0.0-0.9 [facility] Work Phone: Comment on above: IG% - Immature Granu locytes (promyelocytes, myelocytes and metamyelocytes) > 1% indicates that a LEFT SHIFT is Present. MCH (RBC) [Entitic mass] 31.3 pg 27.0-32.0 [facility] Work Phone: Neutrophils/100 WBC (Bld) 58.3 % 47-70 [facility] Work Phone: Nucleated RBC/100 WBC (Bld) [Ratio] 0 % 0-5 [facility] Work Phone: MCHC Auto (RBC) [Mass/Vol]on 06-04-2021 MCHC (RBC) [Mass/Vol] 34.6 g/dL 32-36 [facility] Work Phone: No Panel Informationon 06-04 D-Dimer Quantitative (PE/DVT) 0.58 FEU/ug/m 0.27-0.49 [facility] Work Phone: Comment on above: D-Dimer ELEVATED (>0 .49): Additional studies and clinicalassessments are indicated to conclude diagnosis of:Deep Vein Thrombosis (DVT) or Pulmonary Embolism (PE) Estimated Creatinine Clearance Calc 51.78 ml/min [facility] Work Phone: Estimated GFR (MDRD) Amer 67 mL/min >60 [facility] Work Phone: Comment on above: GFR Calc Estimated GFR (MDRD) Non-Af Amer 55 mL/min >60 [facility] Work Phone: Comment on above: Non- GFR Calc Troponin I High Sensitivity 13 pg/mL 3.0-54.0 [facility] Work Phone: Comment on above: Please Note: [place] Units and Gender Specific Reference Ranges. For more information see Policy Stat Procedure [facility] High Sensitivity Troponin (TNIH) and attachments. SARS-CoV-2 Antigen (Rapid) [facility] Work Phone: Platelets bldon 06-04-2021 Platelets (Bld) [#/Vol] 215 10*3/uL 150-450 [facility] Work Phone: Serum or plasma C reactive p rotein measurement (mass/volume)on 06-04-2021 CRP [Mass/Vol] 6.42 mg/L 0.0-3.0 [facility] Work Phone: Comment on above: C-Reactive Protein ( CRP) provides useful information for thediagnosis, therapy and monitoring of inflammatory processesand associated diseases. For the evaluation of Relative Riskfor Cardiovascular Disease, a High Sensitivity CRP (HSCRP)should be ordered. Serum or plasma calcium oliver urement (mass/volume)on 06-04-2021 Calcium [Mass/Vol] 9.4 mg/dL 8.5-10.[address] [facility] Work Phone: Serum or plasma creatinine m easurement (mass/volume)on 06-04-2021 Creatinine [Mass/Vol] 1.11 mg/dL 0.55-1.02 [facility] Work Phone: Comment on above: The validity of the calculated GFR & GFRAA in patients over 70 years has not been determined. Clinical correlation is essential. Serum or plasma urea nitroge n measurement (mass/volume)on 06-04-2021 Urea nitrogen [Mass/Vol] 18 mg/dL 7-18 [facility] Work Phone: Thin prep Papanicolaou smear with manual screeningon 06-04-2021 Thin prep Papanicolaou smear with manual screening 8 5-15 [facility] Work Phone: Absolute lymphocyte counton 05-25-2021 Lymphocytes Auto (Unsp spec) [#/Vol] 1.81 10*3/uL 0.83-4.51 [facility] Work Phone: Basophil percentageon 2020 Chloride [Moles/Vol] 108 mmol/L 98-107 [facility] Work Phone: Eosinophils/100 WBC (Bld) 0.8 % 0-5 [facility] Work Phone: Glucose [Mass/Vol] 144 mg/dL 74-[address] [facility] Work Phone: Comment on above: Fasting Glucose resu lt greater than or equal to 126 mg/dL suggests DIABETES MELLITUS per A.D.A. criteria.Please note revised GLUCOSE reference range effective 2017. Neutrophils (Bld) [#/Vol] 2.9 10*3/uL 2.0-7.7 [facility] Work Phone: Potassium [Moles/Vol] 3.5 mmol/L 3.5-5.1 [facility] Work Phone: [phone] Sodium [Moles/Vol] 140 mmol/L 136-[address] [facility] Work Phone: [phone] WBC (Bld) [#/Vol] 5.2 10*3/uL 4.4-11.[address] [facility] Work Phone: Blood erythrocytes count (nu mber/volume)on 05-25-2021 RBC (Bld) [#/Vol] 3.73 10*6/uL 4.2-5.4 [facility] Work Phone: Blood hemoglobin measurement (mass/volume)on 05-25-2021 Hemoglobin (Bld) [Mass/Vol] 11.6 g/dL 12.0-15.0 [facility] Work Phone: Blood lymphocytes/100 leukoc yteson 05-25-2021 Lymphocytes/100 WBC (Bld) 34.7 % 19-41 [facility] Work Phone: [phone] Blood monocytes/100 leukocyt eson 05-25-2021 Monocytes/100 WBC (Bld) 7.7 % 0-10 [facility] Work Phone: Blood platelet mean volumeon 05-25-2021 Platelet mean volume (Bld) [Entitic vol] 10.9 fL 6.2-12.0 [facility] Work Phone: Determination of erythrocyte mean corpuscular volume (MCV)on 05-25-2021 MCV (RBC) [Entitic vol] 92.2 fL 81-99 [facility] Work Phone: Glucose Glucometer (BldC) [M ass/Vol]on 05-25-2021 Glucose [Mass/Vol] 107 mg/dL 70-[address] [facility] Work Phone: Comment on above: MANAGEMENT OF PATIEN T CARE PER NURSING PROTOCOL Hematocrit Auto (Bld) [Volum e fraction]on 05-25-2021 Hematocrit (Bld) [Volume fraction] 34.4 % 37-47 [facility] Work Phone: Laboratory - Chemistry and C hemistry - challengeon 05-25-2021 CO2 [Moles/Vol] 24.0 mmol/L 21.0-32.0 [facility] Work Phone: Natriuretic peptide B (Bld) [Mass/Vol] 48.7 pg/mL 0-100 [facility] Work Phone: Urea nitrogen/Creatinine [Mass ratio] 26.1 mg/mg 10- [facility] Work Phone: Laboratory - Coagulationon 1 07-26-2020 aPTT Coag (Bld) [Time] 33.3 s 24.1-36.2 [facility] Work Phone: Laboratory - Hematology and Cell countson 05-25-2021 Basophils/100 WBC (Unsp spec) 0.4 % 0-1 [facility] Work Phone: Erythrocyte distribution width (RBC) [Entitic vol] 47.4 fL 35.1-43.9 [facility] Work Phone: Erythrocyte distribution width (RBC) [Ratio] 14.0 % 11.6-14.6 [facility] Work Phone: Immature granulocytes/100 WBC (Bld) 0.200 % 0.0-0.9 [facility] Work Phone: Comment on above: IG% - Immature Granu locytes (promyelocytes, myelocytes and metamyelocytes) > 1% indicates that a LEFT SHIFT is Present. MCH (RBC) [Entitic mass] 31.1 pg 27.0-32.0 [facility] Work Phone: Neutrophils/100 WBC (Bld) 56.2 % 47-70 [facility] Work Phone: Nucleated RBC/100 WBC (Bld) [Ratio] 0 % 0-5 [facility] Work Phone: MCHC Auto (RBC) [Mass/Vol]on 05-25-2021 MCHC (RBC) [Mass/Vol] 33.7 g/dL 32-36 [facility] Work Phone: No Panel Informationon 05-25 Estimated Creatinine Clearance Calc 49.98 ml/min [facility] Work Phone: Estimated GFR (MDRD) Amer 64 mL/min >60 [facility] Work Phone: Comment on above: GFR Calc Estimated GFR (MDRD) Non-Af Amer 53 mL/min >60 [facility] Work Phone: Comment on above: Non- GFR Calc Platelets bldon 05-25-2021 Platelets (Bld) [#/Vol] 185 10*3/uL 150-450 [facility] Work Phone: Serum or plasma calcium oliver urement (mass/volume)on 05-25-2021 Calcium [Mass/Vol] 9.2 mg/dL 8.5-10.[address] [facility] Work Phone: Serum or plasma creatinine m easurement (mass/volume)on 05-25-2021 Creatinine [Mass/Vol] 1.15 mg/dL 0.55-1.02 [facility] Work Phone: Comment on above: The validity of the calculated GFR & GFRAA in patients over 70 years has not been determined. Clinical correlation is essential. Serum or plasma urea nitroge n measurement (mass/volume)on 05-25-2021 Urea nitrogen [Mass/Vol] 30 mg/dL 7-18 [facility] Work Phone: Thin prep Papanicolaou smear with manual screeningon 05-25-2021 Thin prep Papanicolaou smear with manual screening 8 5-15 [facility] Work Phone: No Panel Informationon 05-24 Troponin I High Sensitivity 104 pg/mL 3.0-54.0 [facility] Work Phone: Comment on above: Please Note: [place] t Units and Gender Specific Reference Ranges. For more information see Policy Stat Procedure [place] High Sensitivity Troponin (TNIH) and attachments. INR in Blood by Coagulation assayon 05-22-2021 INR Coag (Bld) [Relative time] 1.0 {INR} [facility] Work Phone: Laboratory - Coagulationon 1 07-23-2020 PT Coag (PPP) [Time] 12.5 s 11.7-14.9 [facility] Work Phone: Laboratory - Microbiology an d Antimicrobial susceptibilityon 05-22-2021 SARS-CoV-2 (COVID-19) RNA ROSALIA+probe Ql (Unsp spec) Not detected Not Detect [facility] Work Phone: Comment on above: Normal Reference Ran ge: Not DetectedMethod:(RT-PCR) real-time reverse transcriptase PCRLuminex NADEEN Instrument*The Food and Drug Administration (FDA) has issued an Emergency Use Authorization (EAU) for the NADEEN SARS-CoV-2 Assay for the rapid detection of the virus that causes COVID-19. This test has been validated, but the FDAs independent review of this validation is pending.*Negative results do not preclude infection and should not be used as the sole basis for treatment or patient management. Optimum specimen types and timing for peak viral levels during infections caused by SARS-CoV-2 have not been determined. Collection of multiple specimens from the same patient may be necessary to detect the virus. The possibility of a false negative result should be considered if the patient has clinical presentation or has had recent exposure. No Panel Informationon 05-22 D-Dimer Quantitative (PE/DVT) 1.04 FEU/ug/m 0.27-0.49 [facility] Work Phone: Comment on above: D-Dimer ELEVATED (>0 .49): Additional studies and clinicalassessments are indicated to conclude diagnosis of:Deep Vein Thrombosis (DVT) or Pulmonary Embolism (PE)CRITICAL VALUE VERIFIED. CALLED TO SIS KRISHNAN (ER)05/[id number] Joshua Gonzáles.RESULTS READ BACK BY SAME. SARS-CoV-2 Antigen (Rapid) [facility] Work Phone: Basophil percentageon 2020 Bilirubin [Mass/Vol] 0.70 mg/dL 0.20-1.00 [facility] Work Phone: Comment on above: For patients on eltr ombopag therapy, use of Dimension [place] TBIL is not recommended. Chloride [Moles/Vol] 110 mmol/L 98-107 [facility] Work Phone: Cholesterol [Mass/Vol] 105 mg/dL <200 [facility] Work Phone: Comment on above: <200 mg/dL Desirable 200-240 mg/dL Borderline >240 mg/dL High Risk Glucose [Mass/Vol] 230 mg/dL 74-[address] [facility] Work Phone: Comment on above: Glucose result great er than or equal to 200 mg/dLsuggests DIABETES MELLITUS per A.D.A. criteria.Please note revised GLUCOSE reference range effective 2017. Potassium [Moles/Vol] 3.9 mmol/L 3.5-5.1 [facility] Work Phone: Protein [Mass/Vol] 6.3 g/dL 6.4-8.[address] [facility] Work Phone: Sodium [Moles/Vol] 140 mmol/L 136-[address] [facility] Work Phone: Triglyceride [Mass/Vol] 140 mg/dL [facility] Work Phone: Comment on above: The drugs N-Acetylcy steine and Metamizole may falsely depress this assay.Serum Triglycerides Reference Interval Normal <150 mg/dL Borderline high 150 - 199 mg/dL High 200 - 499 mg/dL Very High > or = 500 mg/dL WBC (Bld) [#/Vol] 5.2 10*3/uL 4.4-11.[address] [facility] Work Phone: Blood erythrocytes count (nu mber/volume)on 05-20-2021 RBC (Bld) [#/Vol] 3.80 10*6/uL 4.2-5.4 [facility] Work Phone: Blood hemoglobin measurement (mass/volume)on 05-20-2021 Hemoglobin (Bld) [Mass/Vol] 11.6 g/dL 12.0-15.0 [facility] Work Phone: Blood platelet mean volumeon 05-20-2021 Platelet mean volume (Bld) [Entitic vol] 10.5 fL 6.2-12.0 [facility] Work Phone: Determination of erythrocyte mean corpuscular volume (MCV)on 05-20-2021 MCV (RBC) [Entitic vol] 93.9 fL 81-99 [facility] Work Phone: Hematocrit Auto (Bld) [Volum e fraction]on 05-20-2021 Hematocrit (Bld) [Volume fraction] 35.7 % 37-47 [facility] Work Phone: Laboratory - Chemistry and C hemistry - challengeon 05-20-2021 ALP [Catalytic activity/Vol] 57 U/L 45-117 [facility] Work Phone: ALT [Catalytic activity/Vol] 21 U/L 13-56 [facility] Work Phone: CO2 [Moles/Vol] 23.0 mmol/L 21.0-32.0 [facility] Work Phone: Globulin (S) [Mass/Vol] 3.6 g/dL 2.2-4.2 [facility] Work Phone: Urea nitrogen/Creatinine [Mass ratio] 18.5 mg/mg 10-20 [facility] Work Phone: Laboratory - Hematology and Cell countson 05-20-2021 Erythrocyte distribution width (RBC) [Entitic vol] 46.7 fL 35.1-43.9 [facility] Work Phone: Erythrocyte distribution width (RBC) [Ratio] 13.6 % 11.6-14.6 [facility] Work Phone: MCH (RBC) [Entitic mass] 30.5 pg 27.0-32.0 [facility] Work Phone: MCHC Auto (RBC) [Mass/Vol]on 05-20-2021 MCHC (RBC) [Mass/Vol] 32.5 g/dL 32-36 [facility] Work Phone: No Panel Informationon 05-20 Estimated Creatinine Clearance Calc 70.95 ml/min [facility] Work Phone: Estimated GFR (MDRD) Amer 96 mL/min >60 [facility] Work Phone: Comment on above: GFR Calc Estimated GFR (MDRD) Non-Af Amer 79 mL/min >60 [facility] Work Phone: Comment on above: Non- GFR Calc Platelets bldon 05-20-2021 Platelets (Bld) [#/Vol] 171 10*3/uL 150-450 [facility] Work Phone: Serum or plasma albumin oliver urement (mass/volume)on 05-20-2021 Albumin [Mass/Vol] 2.7 g/dL 3.2-5.[address] [facility] Work Phone: Serum or plasma albumin/glob ulin mass ratioon 05-20-2021 Albumin/Globulin [Mass ratio] 0.8 {ratio} 0.9-2.4 [facility] Work Phone: Serum or plasma calcium oliver urement (mass/volume)on 05-20-2021 Calcium [Mass/Vol] 8.8 mg/dL 8.5-10.[address] [facility] Work Phone: Serum or plasma cholesterol in HDL measurement (mass/volume)on 05-20-2021 Cholesterol in HDL [Mass/Vol] 41 mg/dL [facility] Work Phone: Comment on above: The drugs N-Acetylcy steine and Metamizole may falsely depress this assay. Reference Range HDL <40 mg/dL Low HDL Cholesterol HDL >or= 60 mg/dL High HDL Cholesterol Serum or plasma cholesterol in VLDL measurement (mass/volume)on 05-20-2021 Cholesterol in VLDL [Mass/Vol] 28 mg/dL 5-40 [facility] Work Phone: Serum or plasma creatinine m easurement (mass/volume)on 05-20-2021 Creatinine [Mass/Vol] 0.81 mg/dL 0.55-1.02 [facility] Work Phone: Comment on above: The validity of the calculated GFR & GFRAA in patients over 70 years has not been determined. Clinical correlation is essential. Serum or plasma low density lipoprotein (LDL) cholesterol measurement (mass/volume)on 05-20-2021 Cholesterol in LDL [Mass/Vol] 36 mg/dL 0-130 [facility] Work Phone: Serum or plasma urea nitroge n measurement (mass/volume)on 05-20-2021 Urea nitrogen [Mass/Vol] 15 mg/dL 7-18 [facility] Work Phone: Thin prep Papanicolaou smear with manual screeningon 05-20-2021 Thin prep Papanicolaou smear with manual screening 17 U/L 15-37 [facility] Work Phone: Thin prep Papanicolaou smear with manual screening 7 5-15 [facility] Work Phone: Whole blood hemoglobin A1c/t otal hemoglobin ratio (mass fraction)on 05-20-2021 HbA1c (Bld) [Mass fraction] 9.6 % 3.8-5.6 [facility] Work Phone: Comment on above: Normal < 5.7 % Predi abetic 5.7 - 6.4 % Diabetic >or= 6.5 % Please note range changes. Absolute lymphocyte counton 05-19-2021 Lymphocytes Auto (Unsp spec) [#/Vol] 2.94 10*3/uL 0.83-4.51 [facility] Work Phone: Basophil percentageon 2020 Eosinophils/100 WBC (Bld) 1.0 % 0-5 [facility] Work Phone: Neutrophils (Bld) [#/Vol] 1.8 10*3/uL 2.0-7.7 [facility] Work Phone: Blood lymphocytes/100 leukoc yteson 05-19-2021 Lymphocytes/100 WBC (Bld) 56.9 % 19-41 [facility] Work Phone: Blood monocytes/100 leukocyt eson 05-19-2021 Monocytes/100 WBC (Bld) 6.4 % 0-10 [facility] Work Phone: Laboratory - Chemistry and C hemistry - challengeon 05-19-2021 Magnesium [Mass/Vol] 2.1 mg/dL 1.6-2.6 [facility] Work Phone: [phone] Laboratory - Coagulationon 1 07-20-2020 aPTT Coag (Bld) [Time] 133.7 s 24.1-36.2 [facility] Work Phone: Laboratory - Hematology and Cell countson 05-19-2021 Basophils/100 WBC (Unsp spec) 0.4 % 0-1 [facility] Work Phone: Immature granulocytes/100 WBC (Bld) 0.200 % 0.0-0.9 [facility] Work Phone: Comment on above: IG% - Immature Granu locytes (promyelocytes, myelocytes and metamyelocytes) > 1% indicates that a LEFT SHIFT is Present. Neutrophils/100 WBC (Bld) 35.1 % 47-70 [facility] Work Phone: [phone] Nucleated RBC/100 WBC (Bld) [Ratio] 0 % 0-5 [facility] Work Phone: No Panel Informationon 05-19 Troponin I High Sensitivity 669 pg/mL 3.0-54.0 [facility] Work Phone: Comment on above: Critical Result(s) C alled at: 06:49:53 05/19/2021 by: Félix Hardy. Ivan Kerr RN (ER). Results read back by same. Please Note: New Test Units and Gender Specific Reference Ranges. For more information see Policy Stat Procedure [place] High Sensitivity Troponin (TNIH) and attachments. INR in Blood by Coagulation assayon 05-18-2021 INR Coag (Bld) [Relative time] 1.0 {INR} [facility] Work Phone: Laboratory - Chemistry and C hemistry - challengeon 05-18-2021 Natriuretic peptide B (Bld) [Mass/Vol] 221.5 pg/mL 0-100 [facility] Work Phone: Laboratory - Coagulationon 1 07-19-2020 PT Coag (PPP) [Time] 12.9 s 11.7-14.9 [facility] Work Phone: Culture, urine Bacteria identified Cx Nom (U) Presumptive E. coli [facility] Work Phone: No Panel Information SARS-CoV-2 & FLU Antigen (Rapid) [facility] Work Phone: Vital Signs Date Time Vital Sign Value Performing Clinician Facility 11-30-2024 19:13-0400 Body temperature 97.8 [degF] Mehnaz Laughlin MD Work Phone: [facility] 11-30-2024 19:13-0400 Diastolic blood pressure 113 mm[Hg] Mehnaz Laughlin MD Work Phone: [facility] 11-30-2024 19:13-0400 Heart rate 93 /min Mehnaz Laughlin MD Work Phone: [facility] 11-30-2024 19:13-0400 Respiratory rate 20 /min Mehnaz Laughlin MD Work Phone: [facility] 11-30-2024 19:13-0400 SaO2% (BldA) [Mass fraction] 100 % Mehnaz Laughlin MD Work Phone: [facility] 11-30-2024 19:13-0400 Systolic blood pressure 157 mm[Hg] Mehnaz Laughlin MD Work Phone: [facility] 11-30-2024 15:47-0400 Body height 162.56 cm Mehnaz Laughlin MD Work Phone: [facility] 11-30-2024 15:47-0400 Body mass index (BMI) [Ratio] 38.3 kg/m2 Mehnaz Laughlin MD Work Phone: [facility] 11-30-2024 15:47-0400 Body weight 101.4 kg Mehnaz Laughlin MD Work Phone: [facility] 11-07-2024 14:31-0400 Body height 162.56 cm Mehnaz Laughlin MD Work Phone: [phone] [place] [address] 11-07-2024 14:31-0400 Body mass index (BMI) [Ratio] 36.8 kg/m2 Mehnaz Laughlin MD Work Phone: [facility] 11-07-2024 14:31-0400 Body weight 97.52 kg Mehnaz Laughlin MD Work Phone: [facility] 11-07-2024 14:31-0400 Diastolic blood pressure 69 mm[Hg] Mehnaz Laughlin MD Work Phone: [facility] 11-07-2024 14:31-0400 Heart rate 86 /min Mehnaz Laughlin MD Work Phone: [facility] 11-07-2024 14:31-0400 SaO2% (BldA) [Mass fraction] 97 % Mehnaz Laughlin MD Work Phone: [facility] 11-07-2024 14:31-0400 Systolic blood pressure 108 mm[Hg] Mehnaz Laughlin MD Work Phone: [facility] 10-15-2024 13:57-0400 Diastolic blood pressure 90 mm[Hg] Mehnaz Laughlin MD Work Phone: [facility] 10-15-2024 13:57-0400 Heart rate 84 /min Mehanz Laughlin MD Work Phone: [facility] 10-15-2024 13:57-0400 Respiratory rate 18 /min Mehnaz Laughlin MD Work Phone: [facility] 10-15-2024 13:57-0400 SaO2% (BldA) [Mass fraction] 100 % Mehnaz Laughlin MD Work Phone: [facility] 10-15-2024 13:57-0400 Systolic blood pressure 139 mm[Hg] Mehnaz Laughlin MD Work Phone: [facility] 10-15-2024 10:31-0400 Body height 162.56 cm Mehnaz Laughlin MD Work Phone: [facility] 10-15-2024 10:31-0400 Body mass index (BMI) [Ratio] 35.9 kg/m2 Mehnaz Laughlin MD Work Phone: [facility] 10-15-2024 10:31-0400 Body temperature 97 [degF] Mehnaz Laughlin MD Work Phone: [facility] 10-15-2024 10:31-0400 Body weight 95.11 kg Mehnaz Laughlin MD Work Phone: [facility] 09-12-2024 14:43-0400 Body height 162.56 cm Mehnaz Laughlin MD Work Phone: [facility] 09-12-2024 14:43-0400 Body mass index (BMI) [Ratio] 36.2 kg/m2 Mehnaz Laughlin MD Work Phone: [facility] 09-12-2024 14:43-0400 Body weight 95.7 kg Mehnaz Laughlin MD Work Phone: [facility] 09-12-2024 14:43-0400 Diastolic blood pressure 63 mm[Hg] Mehnaz Laughlin MD Work Phone: [facility] 09-12-2024 14:43-0400 Heart rate 84 /min Mehnaz Laughlin MD Work Phone: [facility] 09-12-2024 14:43-0400 SaO2% (BldA) [Mass fraction] 94 % Mehnaz Laughlin MD Work Phone: [facility] 09-12-2024 14:43-0400 Systolic blood pressure 93 mm[Hg] Mehnaz Laughlin MD Work Phone: [facility] 09-11-2024 17:00-0400 Diastolic blood pressure 84 mm[Hg] Mehnaz Laughlin MD Work Phone: [facility] 09-11-2024 17:00-0400 Heart rate 71 /min Mehnaz Laughlin MD Work Phone: [facility] 09-11-2024 17:00-0400 Respiratory rate 18 /min Mehnaz Laughiln MD Work Phone: [facility] 09-11-2024 17:00-0400 SaO2% (BldA) [Mass fraction] 98 % Mehnaz Laughlin MD Work Phone: [facility] 09-11-2024 17:00-0400 Systolic blood pressure 137 mm[Hg] Mehnaz Laughlin MD Work Phone: [facility] 09-11-2024 12:47-0400 Heart rate 72 /min Mehnaz Laughlin MD Work Phone: [facility] 09-11-2024 12:47-0400 Respiratory rate 16 /min Mehnaz Laughlin MD Work Phone: [facility] 09-11-2024 12:47-0400 SaO2% (BldA) [Mass fraction] 96 % Mehnaz Laughlin MD Work Phone: [facility] 09-11-2024 11:00-0400 Body temperature 97.6 [degF] Mehnaz Laughlin MD Work Phone: [facility] 09-11-2024 11:00-0400 Diastolic blood pressure 64 mm[Hg] Mehnaz Laughlin MD Work Phone: [facility] 09-11-2024 11:00-0400 Systolic blood pressure 118 mm[Hg] Mehnaz Laughlin MD Work Phone: [facility] 09-11-2024 07:17-0400 Inhaled oxygen flow rate 1 L/min Mehnaz Laughlin MD Work Phone: [facility] 09-11-2024 03:42-0400 Body mass index (BMI) [Ratio] 36.4 kg/m2 Mehnaz Laughlin MD Work Phone: [facility] 09-11-2024 03:42-0400 Body weight 96.4 kg Mehnaz Laughlin MD Work Phone: [facility] 09-10-2024 09:49-0400 Body height 162.56 cm Mehnaz Laughlin MD Work Phone: [facility] 09-09-2024 19:00-0400 Heart rate 109 /min Mehnaz Laughlin MD Work Phone: [facility] 09-09-2024 19:00-0400 Respiratory rate 26 /min Mehnaz Laughlin MD Work Phone: [facility] 09-09-2024 19:00-0400 SaO2% (BldA) [Mass fraction] 97 % Mehnaz Laughlin MD Work Phone: [facility] 09-09-2024 18:13-0400 Body temperature 98.1 [degF] Mehnaz Laughlin MD Work Phone: [facility] 09-09-2024 18:13-0400 Diastolic blood pressure 97 mm[Hg] Mehnaz Laughlin MD Work Phone: [facility] 09-09-2024 18:13-0400 Systolic blood pressure 135 mm[Hg] Mehnaz Laughlin MD Work Phone: [facility] 09-09-2024 17:00-0400 Inhaled oxygen flow rate 2 L/min Mehnaz Laughlin MD Work Phone: [facility] 09-09-2024 15:48-0400 Body height 162.56 cm Mehnaz Laughlin MD Work Phone: [facility] 09-09-2024 15:48-0400 Body mass index (BMI) [Ratio] 36.5 kg/m2 Mehnaz Laughlin MD Work Phone: [facility] 09-09-2024 15:48-0400 Body weight 96.43 kg Mehnaz Laughlin MD Work Phone: [phone] [place] [address] 06-13-2024 15:07-0500 Body mass index (BMI) [Ratio] 37.1 kg/m2 Mehnaz Laughlin MD Work Phone: [phone])[phone] [place] [address] 06-13-2024 15:07-0500 Body weight 98.14 kg Mehnaz Laughlin MD Work Phone: [phone])[phone] [address] 06-13-2024 15:07-0500 Diastolic blood pressure 77 mm[Hg] Mehnaz Laughlin MD Work Phone: 8(684)225-305470 [address] 06-13-2024 15:07-0500 Heart rate 59 /min Mehnaz Laughlin MD Work Phone: [phone])[phone] [address] 06-13-2024 15:07-0500 SaO2% (BldA) [Mass fraction] 98 % Mehnaz Laughlin MD Work Phone: [phone])[phone] [place] [address] 06-13-2024 15:07-0500 Systolic blood pressure 131 mm[Hg] Mehnaz Laughlin MD Work Phone: [phone])[phone] [place] [address] 05-30-2024 20:42-0500 Body temperature 98 [degF] Mehnaz Laughlin MD Work Phone: 5(937)[phone] [place] [address] 05-30-2024 20:42-0500 Diastolic blood pressure 81 mm[Hg] Mehnaz Laughlin MD Work Phone: [facility] 05-30-2024 20:42-0500 Heart rate 83 /min Mehnaz Laughlin MD Work Phone: [facility] 05-30-2024 20:42-0500 Respiratory rate 18 /min Mehnaz Laughlin MD Work Phone: [facility] 05-30-2024 20:42-0500 SaO2% (BldA) [Mass fraction] 99 % Mehnaz Laughlin MD Work Phone: [facility] 05-30-2024 20:42-0500 Systolic blood pressure 140 mm[Hg] Mehnaz Laughlin MD Work Phone: [facility] 05-30-2024 18:16-0500 Body mass index (BMI) [Ratio] 36.3 kg/m2 Mehnaz Laughlin MD Work Phone: [facility] 05-30-2024 18:16-0500 Body weight 96.2 kg Mehnaz Laughlin MD Work Phone: [facility] 09-10-2023 07:18-0400 Body temperature 97.7 [degF] Dr. Margo Tatum Work Phone: [facility] 09-10-2023 07:18-0400 Diastolic blood pressure 58 mm[Hg] Dr. Margo Tatum Work Phone: [facility] 09-10-2023 07:18-0400 Heart rate 62 /min Dr. Margo Tatum Work Phone: [facility] 09-10-2023 07:18-0400 Respiratory rate 16 /min Dr. Margo Tatum Work Phone: [facility] 09-10-2023 07:18-0400 SaO2% (BldA) [Mass fraction] 100 % Dr. Margo Tatum Work Phone: [facility] 09-10-2023 07:18-0400 Systolic blood pressure 104 mm[Hg] Dr. Margo Tatum Work Phone: [facility] 09-08-2023 16:52-0400 Inhaled oxygen flow rate 2 L/min Dr. Margo Tatum Work Phone: [facility] 09-06-2023 19:32-0400 Body height 162.[address] Margo Tatum Work Phone: [facility] 09-06-2023 19:32-0400 Body mass index (BMI) [Ratio] 35.9 kg/m2 Dr. Margo Tatum Work Phone: [facility] 09-06-2023 19:32-0400 Body weight 94.[address] Margo Tatum Work Phone: [facility] 09-06-2023 18:00-0400 Body temperature 98.6 [degF] Dr. Margo Tatum Work Phone: [facility] 09-06-2023 18:00-0400 Diastolic blood pressure 62 mm[Hg] Dr. Margo Tatum Work Phone: [facility] 09-06-2023 18:00-0400 Heart rate 78 /min Dr. Margo Tatum Work Phone: [facility] 09-06-2023 18:00-0400 Respiratory rate 12 /min Dr. Margo Tatum Work Phone: [facility] 09-06-2023 18:00-0400 SaO2% (BldA) [Mass fraction] 100 % Dr. Margo Tatum Work Phone: [facility] 09-06-2023 18:00-0400 Systolic blood pressure 129 mm[Hg] Dr. Margo Tatum Work Phone: [facility] 09-06-2023 11:42-0400 Body height 162.[address] Margo Tatum Work Phone: [facility] 09-06-2023 11:42-0400 Body mass index (BMI) [Ratio] 35.9 kg/m2 Dr. Margo Tatum Work Phone: [facility] 09-06-2023 11:42-0400 Body weight 94.[address] Margo Tatum Work Phone: [facility] 08-29-2023 15:00-0400 Body temperature 98.5 [degF] Dr. Margo Tatum Work Phone: [facility] 08-29-2023 15:00-0400 Diastolic blood pressure 41 mm[Hg] Dr. Margo Tatum Work Phone: [facility] 08-29-2023 15:00-0400 Heart rate 88 /min Dr. Margo Tatum Work Phone: [facility] 08-29-2023 15:00-0400 Respiratory rate 18 /min Dr. Margo Tatum Work Phone: [facility] 08-29-2023 15:00-0400 SaO2% (BldA) [Mass fraction] 97 % Dr. Margo Tatum Work Phone: [facility] 08-29-2023 15:00-0400 Systolic blood pressure 101 mm[Hg] Dr. Margo Tatum Work Phone: [facility] 08-29-2023 06:00-0400 Body mass index (BMI) [Ratio] 35.7 kg/m2 Dr. Margo Tatum Work Phone: [facility] 08-29-2023 06:00-0400 Body weight [address] Margo Tatum Work Phone: [facility] 08-26-2023 23:55-0400 Body height 162.[address] Margo Tatum Work Phone: [facility] 08-26-2023 23:00-0400 Diastolic blood pressure 77 mm[Hg] Dr. Margo Tatum Work Phone: [facility] 08-26-2023 23:00-0400 Heart rate 94 /min Dr. Margo Tatum Work Phone: [facility] 08-26-2023 23:00-0400 Respiratory rate 18 /min Dr. Margo Tatum Work Phone: [facility] 08-26-2023 23:00-0400 SaO2% (BldA) [Mass fraction] 96 % Dr. Margo Tatum Work Phone: [facility] 08-26-2023 23:00-0400 Systolic blood pressure 173 mm[Hg] Dr. Margo Tatum Work Phone: [facility] 08-26-2023 22:44-0400 Body temperature 98.8 [degF] Dr. Margo Tatum Work Phone: [facility] 08-26-2023 18:21-0400 Body height 162.[address] Margo Tatum Work Phone: [facility] 08-26-2023 18:21-0400 Body mass index (BMI) [Ratio] 35.6 kg/m2 Dr. Margo Tatum Work Phone: [facility] 08-26-2023 18:21-0400 Body weight 94.[address] Margo Tatum Work Phone: [facility] 08-11-2023 11:45-0500 Body height 162.[address] Margo Tatum Work Phone: [facility] 08-11-2023 11:45-0500 Body mass index (BMI) [Ratio] 35.9 kg/m2 Dr. Margo Tatum Work Phone: [facility] 08-11-2023 11:45-0500 Body temperature 98.6 [degF] Dr. Margo Tatum Work Phone: [facility] 08-11-2023 11:45-0500 Body weight 94.[address] Margo Tatum Work Phone: [facility] 08-11-2023 11:45-0500 Diastolic blood pressure 86 mm[Hg] Dr. Margo Tatum Work Phone: [facility] 08-11-2023 11:45-0500 Heart rate 88 /min Dr. Margo Tatum Work Phone: [facility] 08-11-2023 11:45-0500 Respiratory rate 18 /min Dr. Margo Tatum Work Phone: [facility] 08-11-2023 11:45-0500 SaO2% (BldA) [Mass fraction] 96 % Dr. Margo Tatum Work Phone: [facility] 08-11-2023 11:45-0500 Systolic blood pressure 116 mm[Hg] Dr. Margo Tatum Work Phone: [facility] 08-02-2023 11:55-0500 Body temperature 98.9 [degF] Dr. Margo Tatum Work Phone: [facility] 08-02-2023 11:55-0500 Diastolic blood pressure 78 mm[Hg] Dr. Margo Tatum Work Phone: [facility] 08-02-2023 11:55-0500 Heart rate 84 /min Dr. Margo Tatum Work Phone: [facility] 08-02-2023 11:55-0500 Respiratory rate 16 /min Dr. Margo Tatum Work Phone: [facility] 08-02-2023 11:55-0500 SaO2% (BldA) [Mass fraction] 97 % Dr. Margo Tatum Work Phone: [facility] 08-02-2023 11:55-0500 Systolic blood pressure 139 mm[Hg] Dr. Margo Tatum Work Phone: [facility] 08-02-2023 09:09-0500 Body mass index (BMI) [Ratio] 36.3 kg/m2 Dr. Margo Tatum Work Phone: [facility] 08-02-2023 09:09-0500 Body weight 95.[address] Margo Tatum Work Phone: [facility] 05-18-2023 13:15-0500 Heart rate 72 /min Dr. Margo Tatum Work Phone: [facility] 05-18-2023 13:15-0500 Inhaled oxygen flow rate 2 L/min Dr. Margo Tatum Work Phone: [facility] 05-18-2023 13:15-0500 Respiratory rate 16 /min Dr. Margo Tatum Work Phone: [facility] 05-18-2023 13:15-0500 SaO2% (BldA) [Mass fraction] 99 % Dr. Margo Tatum Work Phone: [facility] 05-18-2023 09:40-0500 Body height 162.[address] Margo Tatum Work Phone: [facility] 05-18-2023 09:40-0500 Body mass index (BMI) [Ratio] 36.2 kg/m2 Dr. Margo Tatum Work Phone: [facility] 05-18-2023 09:40-0500 Body temperature 97.6 [degF] Dr. Margo Tatum Work Phone: [facility] 05-18-2023 09:40-0500 Body weight 95.[address] Margo Tatum Work Phone: [facility] 05-18-2023 09:40-0500 Diastolic blood pressure 88 mm[Hg] Dr. Margo Tatum Work Phone: [facility] 05-18-2023 09:40-0500 Systolic blood pressure 151 mm[Hg] Dr. Margo Tatum Work Phone: [facility] 05-11-2023 14:15-0500 Body mass index (BMI) [Ratio] 37 kg/m2 Dr. Margo Tatum Work Phone: [facility] 05-11-2023 14:15-0500 Body temperature 98.7 [degF] Dr. Margo Tatum Work Phone: [facility] 05-11-2023 14:15-0500 Body weight 97.[address] Margo Tatum Work Phone: [facility] 05-11-2023 14:15-0500 Diastolic blood pressure 74 mm[Hg] Dr. Margo Tatum Work Phone: [facility] 05-11-2023 14:15-0500 Heart rate 78 /min Dr. Margo Tatum Work Phone: [facility] 05-11-2023 14:15-0500 Respiratory rate 16 /min Dr. Margo Tatum Work Phone: [facility] 05-11-2023 14:15-0500 SaO2% (BldA) [Mass fraction] 97 % Dr. Margo Tatum Work Phone: [facility] 05-11-2023 14:15-0500 Systolic blood pressure 116 mm[Hg] Dr. Margo Tatum Work Phone: [facility] 03-08-2023 10:03-0400 Body mass index (BMI) [Ratio] 37.9 kg/m2 Dr. Margo Tatum Work Phone: [facility] 03-08-2023 10:03-0400 Body weight 100.[address] Margo Tatum Work Phone: [facility] 03-08-2023 10:03-0400 Diastolic blood pressure 64 mm[Hg] Dr. Margo Tatum Work Phone: [facility] 03-08-2023 10:03-0400 Heart rate 72 /min Dr. Margo Tatum Work Phone: [facility] 03-08-2023 10:03-0400 Respiratory rate 18 /min Dr. Margo Tatum Work Phone: [facility] 03-08-2023 10:03-0400 Systolic blood pressure 115 mm[Hg] Dr. Margo Tatum Work Phone: [facility] 01-26-2023 10:43-0400 Body mass index (BMI) [Ratio] 38.9 kg/m2 Dr. Margo Tatum Work Phone: [facility] 01-26-2023 10:43-0400 Body temperature 98.3 [degF] Dr. Margo Tatum Work Phone: [facility] 01-26-2023 10:43-0400 Body weight 103.[address] Margo Tatum Work Phone: [facility] 01-26-2023 10:43-0400 Diastolic blood pressure 82 mm[Hg] Dr. Margo Tatum Work Phone: [facility] 01-26-2023 10:43-0400 Heart rate 78 /min Dr. Margo Tatum Work Phone: [facility] 01-26-2023 10:43-0400 Respiratory rate 20 /min Dr. Margo Tatum Work Phone: [facility] 01-26-2023 10:43-0400 SaO2% (BldA) [Mass fraction] 96 % Dr. Margo Tatum Work Phone: [facility] 01-26-2023 10:43-0400 Systolic blood pressure 152 mm[Hg] Dr. Margo Tatum Work Phone: [facility] 10-20-2022 16:08-0400 Body height 162.[address] Margo Tatum Work Phone: [facility] 10-20-2022 16:08-0400 Body mass index (BMI) [Ratio] 38.1 kg/m2 Dr. Margo Tatum Work Phone: [facility] 10-20-2022 16:08-0400 Body weight 100.[address] Margo Tatum Work Phone: [facility] 10-20-2022 16:08-0400 Diastolic blood pressure 88 mm[Hg] Dr. Margo Tatum Work Phone: [facility] 10-20-2022 16:08-0400 Heart rate 67 /min Dr. Margo Tatum Work Phone: [facility] 10-20-2022 16:08-0400 Respiratory rate 16 /min Dr. Margo Tatum Work Phone: [facility] 10-20-2022 16:08-0400 Systolic blood pressure 183 mm[Hg] Dr. Margo Tatum Work Phone: [facility] 10-18-2022 13:08-0400 Body mass index (BMI) [Ratio] 38.5 kg/m2 Dr. Margo Tatum Work Phone: [facility] 10-18-2022 13:08-0400 Body weight 101.[address] Margo Tatum Work Phone: [facility] 10-18-2022 12:18-0400 Body height 162.[address] Margo Tatum Work Phone: [facility] 10-18-2022 12:18-0400 Body temperature 98 [degF] Dr. Margo Tatum Work Phone: [facility] 10-18-2022 12:18-0400 Diastolic blood pressure 48 mm[Hg] Dr. Margo Tatum Work Phone: [facility] 10-18-2022 12:18-0400 Heart rate 85 /min Dr. Margo Tatum Work Phone: [facility] 10-18-2022 12:18-0400 Respiratory rate 16 /min Dr. Margo Tatum Work Phone: [facility] 10-18-2022 12:18-0400 SaO2% (BldA) [Mass fraction] 97 % Dr. Margo Tatum Work Phone: [facility] 10-18-2022 12:18-0400 Systolic blood pressure 151 mm[Hg] Dr. Margo Tatum Work Phone: [facility] 10-07-2022 17:19-0400 Diastolic blood pressure 78 mm[Hg] Dr. Margo Tatum Work Phone: [facility] 10-07-2022 17:19-0400 Heart rate 74 /min Dr. Margo Tatum Work Phone: [facility] 10-07-2022 17:19-0400 Respiratory rate 18 /min Dr. Margo Tatum Work Phone: [facility] 10-07-2022 17:19-0400 SaO2% (BldA) [Mass fraction] 99 % Dr. Margo Tatum Work Phone: [facility] 10-07-2022 17:19-0400 Systolic blood pressure 174 mm[Hg] Dr. Margo Tatum Work Phone: [facility] 10-07-2022 15:20-0400 Body height 164.[address] Margo Tatum Work Phone: [facility] 10-07-2022 15:20-0400 Body mass index (BMI) [Ratio] 39.5 kg/m2 Dr. Margo Tatum Work Phone: [facility] 10-07-2022 15:20-0400 Body temperature 98.5 [degF] Dr. Margo Tatum Work Phone: [facility] 10-07-2022 15:20-0400 Body weight 106.[address] Margo Tatum Work Phone: [facility] 09-23-2022 14:45-0400 Body height 162.[address] Margo Tatum Work Phone: [facility] 09-23-2022 14:45-0400 Body mass index (BMI) [Ratio] 38.8 kg/m2 Dr. Margo Tatum Work Phone: [facility] 09-23-2022 14:45-0400 Body temperature 97.3 [degF] Dr. Margo Tatum Work Phone: [facility] 09-23-2022 14:45-0400 Body weight 102.[address] Margo Tatum Work Phone: [facility] 09-23-2022 14:45-0400 Diastolic blood pressure 72 mm[Hg] Dr. Margo Tatum Work Phone: [facility] 09-23-2022 14:45-0400 Heart rate 70 /min Dr. Margo Tatum Work Phone: [facility] 09-23-2022 14:45-0400 Respiratory rate 16 /min Dr. Margo Tatum Work Phone: [facility] 09-23-2022 14:45-0400 SaO2% (BldA) [Mass fraction] 96 % Dr. Margo Tatum Work Phone: [facility] 09-23-2022 14:45-0400 Systolic blood pressure 102 mm[Hg] Dr. Margo Tatum Work Phone: [facility] 09-20-2022 20:05-0400 Diastolic blood pressure 117 mm[Hg] Rupali Shaw MD, PhD Work Phone: [facility] 09-20-2022 20:05-0400 Heart rate 99 /min Rupali Shaw MD, PhD Work Phone: [facility] 09-20-2022 20:05-0400 Respiratory rate 25 /min Rupali Shaw MD, PhD Work Phone: [facility] 09-20-2022 20:05-0400 SaO2% (BldA) [Mass fraction] 98 % Rupali Shaw MD, PhD Work Phone: [facility] 09-20-2022 20:05-0400 Systolic blood pressure 200 mm[Hg] Rupali Shaw MD, PhD Work Phone: [facility] 09-20-2022 15:04-0400 Body temperature 97.59 [degF] Rupali Shaw MD, PhD Work Phone: [facility] 09-20-2022 14:59-0400 Body height 163.8 cm Rupali Shaw MD, PhD Work Phone: [facility] 09-14-2022 13:55-0400 Body mass index (BMI) [Ratio] 39.1 kg/m2 Dr. Margo Tatum Work Phone: [facility] 09-14-2022 13:55-0400 Body weight 103.[address] Margo Tatum Work Phone: [facility] 09-14-2022 13:55-0400 Diastolic blood pressure 71 mm[Hg] Dr. Margo Tatum Work Phone: [facility] 09-14-2022 13:55-0400 Heart rate 71 /min Dr. Margo Tatum Work Phone: [facility] 09-14-2022 13:55-0400 Respiratory rate 20 /min Dr. Margo Tatum Work Phone: [facility] 09-14-2022 13:55-0400 SaO2% (BldA) [Mass fraction] 72 % Dr. Margo Tatum Work Phone: [facility] 09-14-2022 13:55-0400 Systolic blood pressure 137 mm[Hg] Dr. Margo Tatum Work Phone: [facility] 09-06-2022 04:41-0400 Body mass index (BMI) [Ratio] 38.2 kg/m2 Dr. Margo Tatum Work Phone: [facility] 09-06-2022 04:41-0400 Body temperature 97.6 [degF] Dr. Margo Tatum Work Phone: [facility] 09-06-2022 04:41-0400 Body weight 101.[address] Margo Tatum Work Phone: [facility] 09-06-2022 04:41-0400 Diastolic blood pressure 76 mm[Hg] Dr. Margo Tatum Work Phone: [facility] 09-06-2022 04:41-0400 Heart rate 79 /min Dr. Margo Tatum Work Phone: [facility] 09-06-2022 04:41-0400 Respiratory rate 18 /min Dr. Margo Tatum Work Phone: [facility] 09-06-2022 04:41-0400 SaO2% (BldA) [Mass fraction] 96 % Dr. Margo Tatum Work Phone: [facility] 09-06-2022 04:41-0400 Systolic blood pressure 158 mm[Hg] Dr. Margo Tatum Work Phone: [facility] 09-02-2022 12:01-0400 Diastolic blood pressure 73 mm[Hg] Dr. Margo Tatum Work Phone: [facility] 09-02-2022 12:01-0400 Heart rate 79 /min Dr. Margo Tatum Work Phone: [facility] 09-02-2022 12:01-0400 Respiratory rate 16 /min Dr. Margo Tatum Work Phone: [facility] 09-02-2022 12:01-0400 SaO2% (BldA) [Mass fraction] 97 % Dr. Margo Tatum Work Phone: [facility] 09-02-2022 12:01-0400 Systolic blood pressure 132 mm[Hg] Dr. Margo Tatum Work Phone: [facility] 09-02-2022 09:26-0400 Body mass index (BMI) [Ratio] 38.2 kg/m2 Dr. Margo Tatum Work Phone: [facility] 09-02-2022 09:26-0400 Body temperature 98.2 [degF] Dr. Margo Tatum Work Phone: [facility] 09-02-2022 09:26-0400 Body weight 101.[address] Margo Tatum Work Phone: [facility] 08-18-2022 17:30-0400 Diastolic blood pressure 58 mm[Hg] Serafin Padron MD Work Phone: [facility] 08-18-2022 17:30-0400 Heart rate 83 /min Serafin Padron MD Work Phone: [facility] 08-18-2022 17:30-0400 Respiratory rate 16 /min Serafin Padron MD Work Phone: 0(545)175-795065 [address] 08-18-2022 17:30-0400 SaO2% (BldA) [Mass fraction] 96 % Serafin Padron MD Work Phone: 0(813)188-965065 [address] 08-18-2022 17:30-0400 Systolic blood pressure 112 mm[Hg] Serafin Padron MD Work Phone: 9(450)577-845765 [address] 08-18-2022 08:30-0400 Body height 162.6 cm Serafin Padron MD Work Phone: 9(860)666-986402 [place] [address] 08-18-2022 08:30-0400 Body mass index (BMI) [Ratio] 37.59 kg/m2 Serafin Padron MD Work Phone: 9(666)941-756202 [place] [address] 08-18-2022 08:30-0400 Body temperature 97.7 [degF] Serafin Padron MD Work Phone: 2(662)924-499765 [address] 08-18-2022 08:30-0400 Body weight 99.34 kg Serafin Padron MD Work Phone: 9(475)[phone] [address] 08-07-2022 16:48-0500 Diastolic blood pressure 45 mm[Hg] Dr. Margo Tatum Work Phone: [facility] 08-07-2022 16:48-0500 Heart rate 74 /min Dr. Margo Tatum Work Phone: [facility] 08-07-2022 16:48-0500 Systolic blood pressure 132 mm[Hg] Dr. Margo Tatum Work Phone: [facility] 08-07-2022 13:39-0500 Body temperature 97.9 [degF] Dr. Margo Tatum Work Phone: [facility] 08-07-2022 13:39-0500 Respiratory rate 16 /min Dr. Margo Tatum Work Phone: [facility] 08-07-2022 13:39-0500 SaO2% (BldA) [Mass fraction] 100 % Dr. Margo Tatum Work Phone: [facility] 08-07-2022 07:33-0500 Body temperature 97.9 [degF] Dr. Margo Tatum Work Phone: [facility] 08-07-2022 07:33-0500 Diastolic blood pressure 71 mm[Hg] Dr. Margo Tatum Work Phone: [facility] 08-07-2022 07:33-0500 Heart rate 72 /min Dr. Margo Tatum Work Phone: [facility] 08-07-2022 07:33-0500 Respiratory rate 18 /min Dr. Margo Tatum Work Phone: [facility] 08-07-2022 07:33-0500 SaO2% (BldA) [Mass fraction] 97 % Dr. Margo Tatum Work Phone: [facility] 08-07-2022 07:33-0500 Systolic blood pressure 114 mm[Hg] Dr. Margo Tatum Work Phone: [facility] 08-06-2022 22:49-0500 Body height 162.[address] Margo Tatum Work Phone: [facility] 08-06-2022 22:49-0500 Body mass index (BMI) [Ratio] 37.3 kg/m2 Dr. Margo Tatum Work Phone: [facility] 08-06-2022 22:49-0500 Body weight 98.[address] Margo Tatum Work Phone: [facility] 08-06-2022 22:30-0500 Body temperature 97.6 [degF] Dr. Margo Tatum Work Phone: [facility] 08-06-2022 22:30-0500 Diastolic blood pressure 81 mm[Hg] Dr. Margo Tatum Work Phone: [facility] 08-06-2022 22:30-0500 Heart rate 81 /min Dr. Margo Tatum Work Phone: [facility] 08-06-2022 22:30-0500 Respiratory rate 15 /min Dr. Margo Tatum Work Phone: [facility] 08-06-2022 22:30-0500 SaO2% (BldA) [Mass fraction] 97 % Dr. Margo Tatum Work Phone: [facility] 08-06-2022 22:30-0500 Systolic blood pressure 154 mm[Hg] Dr. Margo Tatum Work Phone: [facility] 08-06-2022 17:51-0500 Body height 162.[address] Margo Tatum Work Phone: [facility] 06-30-2022 10:58-0500 Body height 162.[address] Margo Tatum Work Phone: [facility] 06-30-2022 10:58-0500 Body mass index (BMI) [Ratio] 35.9 kg/m2 Dr. Margo Tatum Work Phone: [facility] 06-30-2022 10:58-0500 Body temperature 96 [degF] Dr. Margo Tatum Work Phone: [facility] 06-30-2022 10:58-0500 Body weight 94.[address] Margo Tatum Work Phone: [facility] 06-30-2022 10:58-0500 Diastolic blood pressure 78 mm[Hg] Dr. Margo Tatum Work Phone: [facility] 06-30-2022 10:58-0500 Heart rate 70 /min Dr. Margo Tatum Work Phone: [facility] 06-30-2022 10:58-0500 Respiratory rate 22 /min Dr. Margo Tatum Work Phone: [facility] 06-30-2022 10:58-0500 SaO2% (BldA) [Mass fraction] 100 % Dr. Margo Tatum Work Phone: [facility] 06-30-2022 10:58-0500 Systolic blood pressure 158 mm[Hg] Dr. Margo Tatum Work Phone: [facility] 06-09-2022 10:24-0500 Body mass index (BMI) [Ratio] 36.9 kg/m2 Dr. Margo Tatum Work Phone: [facility] 06-09-2022 10:24-0500 Body temperature 97 [degF] Dr. Margo Tatum Work Phone: [facility] 06-09-2022 10:24-0500 Body weight 97.[address] Margo Tatum Work Phone: [facility] 06-09-2022 10:24-0500 Diastolic blood pressure 78 mm[Hg] Dr. Margo Tatum Work Phone: [facility] 06-09-2022 10:24-0500 Heart rate 71 /min Dr. Margo Tatum Work Phone: [facility] 06-09-2022 10:24-0500 Respiratory rate 18 /min Dr. Margo Tatum Work Phone: [facility] 06-09-2022 10:24-0500 SaO2% (BldA) [Mass fraction] 97 % Dr. Margo Tatum Work Phone: [facility] 06-09-2022 10:24-0500 Systolic blood pressure 126 mm[Hg] Dr. Margo Tatum Work Phone: [facility] 05-18-2022 13:53-0500 Body height 162.[address] Margo Tatum Work Phone: [facility] Work Phone: 05-18-2022 13:53-0500 Body mass index (BMI) [Ratio] 36.3 kg/m2 Dr. Margo Tatum Work Phone: [facility] 05-18-2022 13:53-0500 Body temperature 97.5 [degF] Dr. Margo Tatum Work Phone: [facility] 05-18-2022 13:53-0500 Body weight 96.[address] Margo Tatum Work Phone: [facility] 05-18-2022 13:53-0500 Diastolic blood pressure 77 mm[Hg] Dr. Margo Tatum Work Phone: [facility] 05-18-2022 13:53-0500 Heart rate 58 /min Dr. Margo Tatum Work Phone: [facility] 05-18-2022 13:53-0500 Respiratory rate 18 /min Dr. Margo Tatum Work Phone: [facility] 05-18-2022 13:53-0500 SaO2% (BldA) [Mass fraction] 100 % Dr. Margo Tatum Work Phone: [facility] 05-18-2022 13:53-0500 Systolic blood pressure 147 mm[Hg] Dr. Margo Tatum Work Phone: [facility] 05-08-2022 14:00-0500 Diastolic blood pressure 88 mm[Hg] Dr. Margo Tatum Work Phone: [facility] 05-08-2022 14:00-0500 Heart rate 77 /min Dr. Margo Tatum Work Phone: [facility] 05-08-2022 14:00-0500 Respiratory rate 18 /min Dr. Margo Tatum Work Phone: [facility] 05-08-2022 14:00-0500 SaO2% (BldA) [Mass fraction] 97 % Dr. Mrago Tatum Work Phone: [facility] 05-08-2022 14:00-0500 Systolic blood pressure 130 mm[Hg] Dr. Margo Tatum Work Phone: [facility] 05-08-2022 12:01-0500 Body height 162.[address] Margo Tatum Work Phone: [facility] Work Phone: 05-08-2022 12:01-0500 Body mass index (BMI) [Ratio] 36 kg/m2 Dr. Margo Tatum Work Phone: [facility] 05-08-2022 12:01-0500 Body temperature 97.5 [degF] Dr. Margo Tatum Work Phone: [facility] 05-08-2022 12:01-0500 Body weight 95.[address] Margo Tatum Work Phone: [facility] 05-06-2022 14:23-0500 Body mass index (BMI) [Ratio] 36.1 kg/m2 Dr. Margo Tatum Work Phone: [facility] 05-06-2022 14:23-0500 Body temperature 97 [degF] Dr. Margo Tatum Work Phone: [facility] 05-06-2022 14:23-0500 Body weight 95.[address] Margo Tatum Work Phone: [facility] 05-06-2022 14:23-0500 Diastolic blood pressure 67 mm[Hg] Dr. Margo Tatum Work Phone: [facility] 05-06-2022 14:23-0500 Heart rate 82 /min Dr. Margo Tatum Work Phone: [facility] 05-06-2022 14:23-0500 Respiratory rate 20 /min Dr. Margo Tatum Work Phone: [facility] 05-06-2022 14:23-0500 SaO2% (BldA) [Mass fraction] 98 % Dr. Margo Tatum Work Phone: [facility] 05-06-2022 14:23-0500 Systolic blood pressure 121 mm[Hg] Dr. Margo Tatum Work Phone: [facility] 04-13-2022 14:16-0500 Body height 162.[address] Margo Tatum Work Phone: [facility] Work Phone: 04-13-2022 14:16-0500 Body mass index (BMI) [Ratio] 35.9 kg/m2 Dr. Margo Tatum Work Phone: [facility] 04-13-2022 14:16-0500 Body weight 94.[address] Margo Tatum Work Phone: [facility] 04-13-2022 14:16-0500 Diastolic blood pressure 63 mm[Hg] Dr. Margo Tatum Work Phone: [facility] 04-13-2022 14:16-0500 Heart rate 73 /min Dr. Margo Tatum Work Phone: [facility] 04-13-2022 14:16-0500 Respiratory rate 18 /min Dr. Margo Tatum Work Phone: [facility] 04-13-2022 14:16-0500 Systolic blood pressure 120 mm[Hg] Dr. Margo Tatum Work Phone: [facility] 04-05-2022 20:28-0400 Diastolic blood pressure 86 mm[Hg] Dr. Margo Tatum Work Phone: [facility] 04-05-2022 20:28-0400 Systolic blood pressure 149 mm[Hg] Dr. Margo Tatum Work Phone: [facility] 04-05-2022 19:47-0400 Heart rate 76 /min Dr. Margo Tatum Work Phone: [facility] 04-05-2022 19:47-0400 Respiratory rate 19 /min Dr. Margo Tatum Work Phone: [facility] 04-05-2022 19:47-0400 SaO2% (BldA) [Mass fraction] 98 % Dr. Margo Tatum Work Phone: [facility] 04-05-2022 16:03-0400 Body height 162.[address] Margo Tatum Work Phone: [facility] Work Phone: 04-05-2022 16:03-0400 Body mass index (BMI) [Ratio] 36.7 kg/m2 Dr. Margo Tatum Work Phone: [facility] 04-05-2022 16:03-0400 Body temperature 98.3 [degF] Dr. Margo Tatum Work Phone: [facility] 04-05-2022 16:03-0400 Body weight 97.[address] Margo Tatum Work Phone: [facility] 02-24-2022 11:43-0400 Body mass index (BMI) [Ratio] 34.8 kg/m2 Dr. Margo Tatum Work Phone: [facility] Work Phone: 02-24-2022 11:43-0400 Body weight 92.[address] Margo Tatum Work Phone: [facility] Work Phone: 02-24-2022 11:43-0400 Diastolic blood pressure 72 mm[Hg] Dr. Margo Tatum Work Phone: [facility] Work Phone: 02-24-2022 11:43-0400 Heart rate 68 /min Dr. Margo Tatum Work Phone: [facility] Work Phone: 02-24-2022 11:43-0400 Respiratory rate 20 /min Dr. Margo Tatum Work Phone: [facility] Work Phone: 02-24-2022 11:43-0400 Systolic blood pressure 144 mm[Hg] Dr. Margo Tatum Work Phone: [facility] Work Phone: 01-25-2022 00:01-0400 Diastolic blood pressure 63 mm[Hg] Dr. Margo Tatum Work Phone: [facility] Work Phone: 01-25-2022 00:01-0400 Heart rate 79 /min Dr. Margo Tatum Work Phone: [facility] Work Phone: 01-25-2022 00:01-0400 Respiratory rate 16 /min Dr. Margo Tatum Work Phone: [facility] Work Phone: 01-25-2022 00:01-0400 SaO2% (BldA) [Mass fraction] 98 % Dr. Margo Tatum Work Phone: [facility] Work Phone: 01-25-2022 00:01-0400 Systolic blood pressure 151 mm[Hg] Dr. Margo Tatum Work Phone: [facility] Work Phone: 01-24-2022 20:22-0400 Body mass index (BMI) [Ratio] 35.6 kg/m2 Dr. Margo Tatum Work Phone: [facility] Work Phone: 01-24-2022 20:22-0400 Body temperature 98 [degF] Dr. Margo Tatum Work Phone: [facility] Work Phone: 01-24-2022 20:22-0400 Body weight 94.[address] Margo Tatum Work Phone: [facility] Work Phone: 01-12-2022 09:53-0400 Body mass index (BMI) [Ratio] 34.7 kg/m2 Dr. Margo Tatum Work Phone: [facility] Work Phone: 01-12-2022 09:53-0400 Body weight 91.[address] Margo Tatum Work Phone: [facility] Work Phone: 01-12-2022 09:53-0400 Diastolic blood pressure 70 mm[Hg] Dr. Margo Tatum Work Phone: [facility] Work Phone: 01-12-2022 09:53-0400 Heart rate 72 /min Dr. Margo Tatum Work Phone: [facility] Work Phone: 01-12-2022 09:53-0400 Systolic blood pressure 110 mm[Hg] Dr. Margo Tatum Work Phone: [facility] Work Phone: 12-29-2021 09:07-0400 Body mass index (BMI) [Ratio] 34 kg/m2 Dr. Margo Tatum Work Phone: [facility] Work Phone: 12-29-2021 09:07-0400 Body weight 89.[address] Margo Tatum Work Phone: [facility] Work Phone: 12-29-2021 09:07-0400 Diastolic blood pressure 73 mm[Hg] Dr. Margo Tatum Work Phone: [facility] Work Phone: 12-29-2021 09:07-0400 Heart rate 75 /min Dr. Margo Tatum Work Phone: [facility] Work Phone: 12-29-2021 09:07-0400 SaO2% (BldA) [Mass fraction] 96 % Dr. Margo Tatum Work Phone: [facility] Work Phone: 12-29-2021 09:07-0400 Systolic blood pressure 124 mm[Hg] Dr. Margo Tatum Work Phone: [facility] Work Phone: 11-17-2021 06:46-0400 Diastolic blood pressure 60 mm[Hg] Dr. Margo Tatum Work Phone: [facility] Work Phone: 11-17-2021 06:46-0400 Heart rate 64 /min Dr. Margo Tatum Work Phone: [facility] Work Phone: 11-17-2021 06:46-0400 Respiratory rate 16 /min Dr. Margo Tatum Work Phone: [facility] Work Phone: 11-17-2021 06:46-0400 SaO2% (BldA) [Mass fraction] 95 % Dr. Margo Tatum Work Phone: [facility] Work Phone: 11-17-2021 06:46-0400 Systolic blood pressure 97 mm[Hg] Dr. Margo Tatum Work Phone: [facility] Work Phone: 11-17-2021 04:42-0400 Body height 162.[address] Margo Tatum Work Phone: [facility] Work Phone: 11-17-2021 04:42-0400 Body mass index (BMI) [Ratio] 35.4 kg/m2 Dr. Margo Tatum Work Phone: [facility] Work Phone: 11-17-2021 04:42-0400 Body temperature 97 [degF] Dr. Margo Tatum Work Phone: [facility] Work Phone: 11-17-2021 04:42-0400 Body weight 93.[address] Margo Tatum Work Phone: [facility] Work Phone: 11-06-2021 18:46-0400 Heart rate 84 /min Dr. Margo Tatum Work Phone: [facility] Work Phone: 11-06-2021 18:46-0400 Respiratory rate 18 /min Dr. Margo Tatum Work Phone: [facility] Work Phone: 11-06-2021 18:46-0400 SaO2% (BldA) [Mass fraction] 98 % Dr. Margo Tatum Work Phone: [facility] Work Phone: 11-06-2021 18:20-0400 Body height 162.[address] Margo Tatum Work Phone: [facility] Work Phone: 11-06-2021 18:20-0400 Body mass index (BMI) [Ratio] 34.9 kg/m2 Dr. Margo Tatum Work Phone: [facility] Work Phone: 11-06-2021 18:20-0400 Body temperature 98.6 [degF] Dr. Margo Tatum Work Phone: [facility] Work Phone: 11-06-2021 18:20-0400 Body weight 92.[address] Margo Tatum Work Phone: [facility] Work Phone: 11-06-2021 18:20-0400 Diastolic blood pressure 86 mm[Hg] Dr. Margo Tatum Work Phone: [facility] Work Phone: 11-06-2021 18:20-0400 Systolic blood pressure 171 mm[Hg] Dr. Margo Tatum Work Phone: [facility] Work Phone: 10-15-2021 13:43-0400 Body height 165.[address] Margo Tatum Work Phone: [facility] Work Phone: 10-15-2021 13:43-0400 Body mass index (BMI) [Ratio] 32.8 kg/m2 Dr. Margo Tatum Work Phone: [facility] Work Phone: 10-15-2021 13:43-0400 Body weight 89.[address] Margo Tatum Work Phone: [facility] Work Phone: 10-15-2021 13:43-0400 Diastolic blood pressure 85 mm[Hg] Dr. Margo Tatum Work Phone: [facility] Work Phone: 10-15-2021 13:43-0400 Heart rate 70 /min Dr. Margo Tatum Work Phone: [facility] Work Phone: 10-15-2021 13:43-0400 Respiratory rate 22 /min Dr. Margo Tatum Work Phone: [facility] Work Phone: 10-15-2021 13:43-0400 SaO2% (BldA) [Mass fraction] 96 % Dr. Margo Tatum Work Phone: [facility] Work Phone: 10-15-2021 13:43-0400 Systolic blood pressure 135 mm[Hg] Dr. Margo Tatum Work Phone: [facility] Work Phone: 09-20-2021 21:41-0400 Diastolic blood pressure 82 mm[Hg] Dr. Margo Tatum Work Phone: [facility] Work Phone: 09-20-2021 21:41-0400 Heart rate 74 /min Dr. Margo Tatum Work Phone: [facility] Work Phone: 09-20-2021 21:41-0400 Respiratory rate 16 /min Dr. Margo Tatum Work Phone: [facility] Work Phone: 09-20-2021 21:41-0400 SaO2% (BldA) [Mass fraction] 94 % Dr. Margo Tatum Work Phone: [facility] Work Phone: 09-20-2021 21:41-0400 Systolic blood pressure 142 mm[Hg] Dr. Margo Tatum Work Phone: [facility] Work Phone: 09-20-2021 19:07-0400 Body height 165.[address] Margo Tatum Work Phone: [facility] Work Phone: 09-20-2021 19:07-0400 Body mass index (BMI) [Ratio] 32.3 kg/m2 Dr. Margo Tatum Work Phone: [facility] Work Phone: 09-20-2021 19:07-0400 Body temperature 97.1 [degF] Dr. Margo Tatum Work Phone: [facility] Work Phone: 09-20-2021 19:07-0400 Body weight 87.[address] Margo Tatum Work Phone: [facility] Work Phone: 09-16-2021 23:00-0400 Diastolic blood pressure 59 mm[Hg] Dr. Margo Tatum Work Phone: [facility] Work Phone: 09-16-2021 23:00-0400 Heart rate 65 /min Dr. Margo Tatum Work Phone: [facility] Work Phone: 09-16-2021 23:00-0400 Respiratory rate 18 /min Dr. Magro Tatum Work Phone: [facility] Work Phone: 09-16-2021 23:00-0400 SaO2% (BldA) [Mass fraction] 98 % Dr. Margo Tatum Work Phone: [facility] Work Phone: 09-16-2021 23:00-0400 Systolic blood pressure 100 mm[Hg] Dr. Margo Tatum Work Phone: [facility] Work Phone: 09-16-2021 20:44-0400 Body height 154.[address] Margo Tatum Work Phone: [facility] Work Phone: 09-16-2021 20:44-0400 Body mass index (BMI) [Ratio] 36.1 kg/m2 Dr. Margo Tatum Work Phone: [facility] Work Phone: 09-16-2021 20:44-0400 Body temperature 97.4 [degF] Dr. Margo Tatum Work Phone: [facility] Work Phone: 09-16-2021 20:44-0400 Body weight 86.[address] Margo Tatum Work Phone: [facility] Work Phone: 09-14-2021 14:17-0400 Body temperature 97.7 [degF] Dr. Margo Tatum Work Phone: [facility] Work Phone: 09-14-2021 14:17-0400 Diastolic blood pressure 62 mm[Hg] Dr. Margo Tatum Work Phone: [facility] Work Phone: 09-14-2021 14:17-0400 Heart rate 74 /min Dr. Margo Tatum Work Phone: [facility] Work Phone: 09-14-2021 14:17-0400 Respiratory rate 20 /min Dr. Margo Tatum Work Phone: [facility] Work Phone: 09-14-2021 14:17-0400 SaO2% (BldA) [Mass fraction] 98 % Dr. Margo Tatum Work Phone: [facility] Work Phone: 09-14-2021 14:17-0400 Systolic blood pressure 107 mm[Hg] Dr. Margo Tatum Work Phone: [facility] Work Phone: 09-14-2021 05:29-0400 Body weight 88.[address] Margo Tatum Work Phone: [facility] Work Phone: 09-11-2021 09:55-0400 Body height 162.[address] Margo Tatum Work Phone: [facility] Work Phone: 09-11-2021 06:00-0400 Inhaled oxygen concentration 25 % Dr. Margo Tatum Work Phone: [facility] Work Phone: 09-08-2021 23:47-0400 Body mass index (BMI) [Ratio] 35.4 kg/m2 Dr. Margo Tatum Work Phone: [facility] Work Phone: 09-08-2021 23:02-0400 Diastolic blood pressure 95 mm[Hg] Dr. Margo Tatum Work Phone: [facility] Work Phone: 09-08-2021 23:02-0400 Heart rate 103 /min Dr. Margo Tatum Work Phone: [facility] Work Phone: 09-08-2021 23:02-0400 Respiratory rate 21 /min Dr. Margo Tatum Work Phone: [facility] Work Phone: 09-08-2021 23:02-0400 Systolic blood pressure 145 mm[Hg] Dr. Margo Tatum Work Phone: [facility] Work Phone: 09-08-2021 22:51-0400 Body temperature 97.2 [degF] Dr. Margo Tatum Work Phone: [facility] Work Phone: 09-08-2021 22:51-0400 Inhaled oxygen concentration 100 % Dr. Margo Tatum Work Phone: [facility] Work Phone: 09-08-2021 22:51-0400 SaO2% (BldA) [Mass fraction] 98 % Dr. Margo Tatum Work Phone: [facility] Work Phone: 09-08-2021 19:59-0400 Body height 162.[address] Margo Tatum Work Phone: [facility] Work Phone: 09-08-2021 19:59-0400 Body mass index (BMI) [Ratio] 36.3 kg/m2 Dr. Margo Tatum Work Phone: [facility] Work Phone: 09-08-2021 19:59-0400 Body weight 96.[address] Margo Tatum Work Phone: [facility] Work Phone: 07-19-2021 10:40-0500 Body temperature 97.9 [degF] Dr. Margo Tatum Work Phone: [facility] Work Phone: 07-19-2021 10:40-0500 Diastolic blood pressure 56 mm[Hg] Dr. Margo Tatum Work Phone: [facility] Work Phone: 07-19-2021 10:40-0500 Heart rate 65 /min Dr. Margo Tatum Work Phone: [facility] Work Phone: 07-19-2021 10:40-0500 Respiratory rate 18 /min Dr. Margo Tatum Work Phone: [facility] Work Phone: 07-19-2021 10:40-0500 SaO2% (BldA) [Mass fraction] 97 % Dr. Margo Tatum Work Phone: [facility] Work Phone: 07-19-2021 10:40-0500 Systolic blood pressure 120 mm[Hg] Dr. Margo Tatum Work Phone: [facility] Work Phone: 07-18-2021 14:27-0500 Body weight 89.[address] Margo Tatum Work Phone: [facility] Work Phone: 07-17-2021 15:30-0500 Body mass index (BMI) [Ratio] 34 kg/m2 Dr. Margo Tatum Work Phone: [facility] Work Phone: 06-09-2021 09:17-0500 Body mass index (BMI) [Ratio] 35.5 kg/m2 Dr. Margo Tatum Work Phone: [facility] Work Phone: 06-09-2021 09:17-0500 Body temperature 98.3 [degF] Dr. Margo Tatum Work Phone: [facility] Work Phone: 06-09-2021 09:17-0500 Body weight 93.[address] Margo Tatum Work Phone: [facility] Work Phone: 06-09-2021 09:17-0500 Diastolic blood pressure 56 mm[Hg] Dr. Margo Tatum Work Phone: [facility] Work Phone: 06-09-2021 09:17-0500 Heart rate 80 /min Dr. Margo Tatum Work Phone: [facility] Work Phone: 06-09-2021 09:17-0500 Respiratory rate 18 /min Dr. Margo Tatum Work Phone: [facility] Work Phone: 06-09-2021 09:17-0500 SaO2% (BldA) [Mass fraction] 96 % Dr. Margo Tatum Work Phone: [facility] Work Phone: 06-09-2021 09:17-0500 Systolic blood pressure 121 mm[Hg] Dr. Margo Tatum Work Phone: [facility] Work Phone: 06-08-2021 12:35-0500 Body mass index (BMI) [Ratio] 35.2 kg/m2 Dr. Margo Tatum Work Phone: [facility] Work Phone: 06-08-2021 12:35-0500 Body weight 92.[address] Margo Tatum Work Phone: [facility] Work Phone: 06-08-2021 12:35-0500 Diastolic blood pressure 63 mm[Hg] Dr. Margo Tatum Work Phone: [facility] Work Phone: 06-08-2021 12:35-0500 Heart rate 90 /min Dr. Margo Tatum Work Phone: [facility] Work Phone: 06-08-2021 12:35-0500 Respiratory rate 20 /min Dr. Margo Tatum Work Phone: [facility] Work Phone: 06-08-2021 12:35-0500 SaO2% (BldA) [Mass fraction] 98 % Dr. Margo Tatum Work Phone: [facility] Work Phone: 06-08-2021 12:35-0500 Systolic blood pressure 145 mm[Hg] Dr. Margo Tatum Work Phone: [facility] Work Phone: 06-07-2021 15:55-0500 Diastolic blood pressure 79 mm[Hg] Dr. Margo Tatum Work Phone: [facility] Work Phone: 06-07-2021 15:55-0500 Heart rate 71 /min Dr. Margo Tatum Work Phone: [facility] Work Phone: 06-07-2021 15:55-0500 Respiratory rate 15 /min Dr. Margo Tatum Work Phone: [facility] Work Phone: 06-07-2021 15:55-0500 SaO2% (BldA) [Mass fraction] 96 % Dr. Margo Tatum Work Phone: [facility] Work Phone: 06-07-2021 15:55-0500 Systolic blood pressure 135 mm[Hg] Dr. Margo Tatum Work Phone: [facility] Work Phone: 06-07-2021 12:40-0500 Body temperature 97.6 [degF] Dr. Margo Tatum Work Phone: [facility] Work Phone: 06-07-2021 11:25-0500 Body mass index (BMI) [Ratio] 35.3 kg/m2 Dr. Margo Tatum Work Phone: [facility] Work Phone: 06-07-2021 11:25-0500 Body weight 93.[address] Margo Tatum Work Phone: [facility] Work Phone: 06-04-2021 14:38-0500 Diastolic blood pressure 75 mm[Hg] Dr. Margo Tatum Work Phone: [facility] Work Phone: 06-04-2021 14:38-0500 Heart rate 71 /min Dr. Margo Tatum Work Phone: [facility] Work Phone: 06-04-2021 14:38-0500 Respiratory rate 16 /min Dr. Margo Tatum Work Phone: [facility] Work Phone: 06-04-2021 14:38-0500 SaO2% (BldA) [Mass fraction] 95 % Dr. Margo Tatum Work Phone: [facility] Work Phone: 06-04-2021 14:38-0500 Systolic blood pressure 126 mm[Hg] Dr. Margo Tatum Work Phone: [facility] Work Phone: 06-04-2021 11:51-0500 Body mass index (BMI) [Ratio] 35.3 kg/m2 Dr. Margo Tatum Work Phone: [facility] Work Phone: 06-04-2021 11:51-0500 Body temperature 97.8 [degF] Dr. Margo Tatum Work Phone: [facility] Work Phone: 06-04-2021 11:51-0500 Body weight 93.[address] Margo Tatum Work Phone: [facility] Work Phone: 05-25-2021 13:16-0500 SaO2% (BldA) [Mass fraction] 94 % Dr. Margo Tatum Work Phone: [facility] Work Phone: 05-25-2021 13:00-0500 Body temperature 97.9 [degF] Dr. Margo Tatum Work Phone: [facility] Work Phone: 05-25-2021 13:00-0500 Diastolic blood pressure 80 mm[Hg] Dr. Margo Tatum Work Phone: [facility] Work Phone: 05-25-2021 13:00-0500 Heart rate 78 /min Dr. Margo Tatum Work Phone: [facility] Work Phone: 05-25-2021 13:00-0500 Respiratory rate 18 /min Dr. Margo Tatum Work Phone: [facility] Work Phone: 05-25-2021 13:00-0500 Systolic blood pressure 121 mm[Hg] Dr. Margo Tatum Work Phone: [facility] Work Phone: 05-25-2021 09:41-0500 Body weight 94.[address] Margo Tatum Work Phone: [facility] Work Phone: 05-22-2021 22:40-0500 Body mass index (BMI) [Ratio] 35.6 kg/m2 Dr. Margo Tatum Work Phone: [facility] Work Phone: 05-20-2021 07:56-0500 Respiratory rate 18 /min Dr. Margo Tatum Work Phone: [facility] Work Phone: 05-20-2021 04:53-0500 SaO2% (BldA) [Mass fraction] 96 % Dr. Margo Tatum Work Phone: [facility] Work Phone: 05-19-2021 14:04-0500 Heart rate 95 /min Dr. Margo Tatum Work Phone: [facility] Work Phone: 05-19-2021 05:29-0500 Body temperature 98 [degF] Dr. Margo Tatum Work Phone: [facility] Work Phone: 05-19-2021 05:29-0500 Diastolic blood pressure 69 mm[Hg] Dr. Margo Tatum Work Phone: [facility] Work Phone: 05-19-2021 05:29-0500 Systolic blood pressure 113 mm[Hg] Dr. Margo Tatum Work Phone: [facility] Work Phone: 05-18-2021 23:29-0500 Body mass index (BMI) [Ratio] 36.8 kg/m2 Dr. Margo Tatum Work Phone: [facility] Work Phone: 05-18-2021 23:29-0500 Body weight 97.[address] Margo Tatum Work Phone: [facility] Work Phone: Encounters Encounter Date Encounter Type Care Provider Facility Start: 11-30-2024 observation encounter Mehnaz Laughlin MD Work Phone: -Progressive Care Unit Start: 11-30-2024 Dr. Suma ballesteros MD -[facility] Work Phone: Start: 11-07-2024 End: 11-07-2024 Patient encounter procedure Mike Tom PALS SPECIALIST-C -[facility] Work Phone: Start: 11-07-2024 End: 11-07-2024 Mike Tom PALS SPECIALIST-C -[facility] Work Phone: Start: 11-07-2024 End: 11-07-2024 ambulatory Mehnaz Laughlin MD Work Phone: [facility] Work Phone: Start: 10-17-2024 End: 10-17-2024 ambulatory Mehnaz Laughlin MD Work Phone: [facility] Work Phone: Start: 10-17-2024 End: 10-17-[address] Cr Ho MD -[facility] Work Phone: Start: 10-17-2024 End: 10-17-2024 Dr. Cr Ho MD -[facility] Work Phone: Start: 10-15-2024 End: 10-15-2024 Dr. Arjun Ortez DO -Emergency Department Work Phone: Start: 10-15-2024 End: 10-15-2024 Emergency department patient visit Mehnaz Laughlin MD Work Phone: -Emergency Department Work Phone: Start: 09-25-2024 End: 09-25-[address] Darline Solano MD -Laboratory Work Phone: Start: 09-25-2024 End: 09-25-2024 Dr. Darline Solano MD -Laboratory Work Phone: Start: 09-24-2024 End: 09-25-2024 ambulatory Mehnaz Laughlin MD Work Phone: [facility] Work Phone: Start: 09-24-2024 End: 09-24-2024 Patient encounter procedure Mikeyvonne Tom PALS SPECIALIST-C -Ultrasound, [facility] Work Phone: Start: 09-24-2024 End: 09-24-2024 Mikeyvonne Tom PALS SPECIALIST-C -Ultrasound [facility] Work Phone: Start: 09-24-2024 End: 09-24-2024 ambulatory Mike Negro Facility:[facility] Start: 09-12-2024 End: 09-12-2024 Patient encounter procedure Mike Tom PALS SPECIALIST-C -[facility] Work Phone: Start: 09-12-2024 End: 09-12-2024 Mikeyvonne Tom PALS SPECIALIST-C -[facility] Work Phone: Start: 09-12-2024 End: 09-12-2024 ambulatory Mike Tom Facility:[facility] Start: 09-11-2024 End: 09-11-2024 ambulatory Mehnaz Laughlin MD Work Phone: [facility] Work Phone: Start: 09-11-2024 End: 09-11-[address] Cr Ho MD -[facility] Work Phone: Start: 09-11-2024 End: 09-11-2024 Dr. Cr Ho MD -[facility] Work Phone: Start: 09-11-2024 Non-patient / Non-visit Dr. Damaris Thibodeaux DO [facility] Work Phone: Start: 09-11-2024 [facility] Start: 09-10-2024 Non-patient / Non-visit Dr. Juarez [facility] Work Phone: Start: 09-10-2024 Dr. Jamie Manrique DO [facility] Work Phone: Start: 09-09-2024 ambulatory Jamie Manrique Facility:[facility] Start: 09-09-2024 End: 09-11-2024 Evaluation and management of inpatient Dr. Damaris Thibodeaux DO -Progressive Care Unit Work Phone: Start: 09-09-2024 End: 09-11-2024 Dr. Damaris Thibodeaux DO -[facility] Care Un it Work Phone: Start: 09-09-2024 Evaluation and management of inpatient Dr. Francine Steele MD -[facility] Work Phone: Start: 09-09-2024 Non-patient / [facility] Work [facility]: Start: 09-09-2024 Dr. Francine zabala MD [facility] Work Phone: Start: 09-09-2024 ambulatory Francine Steele Facility :[facility] Start: 09-05-2024 End: 09-05-2024 ambulatory Margo Tatum Facility:[facility] Start: 09-05-2024 End: 09-05-[address] [facility] Work Phone: Start: 09-05-2024 End: 09-05-2024 Dr. [facility] Work Phone: Start: 08-29-2024 End: 08-29-2024 ambulatory Mehnaz Laughlin MD Work Phone: [facility] Work Phone: Start: 08-29-2024 End: 08-29-[address] [facility] Work Phone: Start: 08-29-2024 End: 08-29-2024 Dr. Cr [facility] Work Phone: Start: 08-14-2024 ambulatory Margo Malys Facility:[facility] Start: 07-05-2024 End: 07-05-2024 Patient encounter procedure Mike Tom PALS SPECIALIST-C -Laboratory Work Phone: Start: 07-05-2024 End: 07-05-2024 ambulatory Mike Negro Facility:[facility] Start: 06-13-2024 End: 06-13-2024 Patient encounter procedure Mike Tom PALS SPECIALIST-C -[facility] Work Phone: Start: 06-13-2024 End: 06-13-2024 ambulatory Mike Negro Facility:[facility] Start: 06-11-2024 End: 06-11-2024 ambulatory Margo Malys Facility:[facility] Start: 06-11-2024 End: 06-11-[address] Cr Ho MD -[facility] Work Phone: Start: 05-30-2024 End: 05-30-2024 Emergency department patient visit Dr. Miguel Conroy -Emergency Department Work Phone: Start: 04-04-2024 End: 04-04-2024 ambulatory Mike Negro Facility:[facility] Start: 03-27-2024 End: 03-27-2024 ambulatory Margo Malys Facility:[facility] Start: 01-23-2024 End: 01-23-2024 ambulatory Margo Malys Facility:[facility] Start: 01-20-2024 ambulatory Margo Malys Facility:[facility] Start: 01-19-2024 End: 01-20-2024 ambulatory Damaris Carlos Eduardo Facility:[facility] Start: 01-19-2024 End: 01-19-2024 ambulatory Mike Negro Facility:[facility] Start: 01-05-2024 End: 01-05-2024 ambulatory Edward Hancock Facility:[facility] Start: 12-13-2023 End: 12-13-2023 ambulatory Bryan Mitchell NP Facility:[facility] Start: 12-12-2023 End: 12-12-2023 ambulatory Margo Malys Facility:[facility] Start: 09-09-2023 Dr. Margo Tatum Work Phone: [facility] Work Phone: Start: 09-08-2023 Dr. Margo Tatum Work Phone: [facility] Work Phone: Start: 09-07-2023 Dr. Margo Tatum Work Phone: [facility] Work Phone: Start: 09-06-2023 Non-patient / Non-visit Dr. Annabella Tatum Work Phone: [facility] Work Phone: Start: 09-06-2023 End: 09-10-2023 Evaluation and management of inpatient Dr. Margo Tatum [facility] Work [facility] Start: 09-06-2023 End: 09-10-2023 Dr. Margo Tatum [facility] Work [facility]: Start: 08-29-2023 Non-patient / Non-visit Dr. Annabella Tatum Work Phone: [facility] Work Phone: Start: 08-29-2023 Dr. Margo Tatum Work Phone: [facility] Work Phone: Start: 08-28-2023 Non-patient / Non-visit Dr. Annabella Tatum Work Phone: [facility] Work Phone: Start: 08-28-2023 Dr. Margo Tatum Work Phone: [facility] Work Phone: Start: 08-27-2023 Non-patient / Non-visit Dr. Annabella Tatum Work Phone: [facility] Work Phone: Start: 08-27-2023 Dr. Margo Tatum Work Phone: [facility] Work Phone: Start: 08-26-2023 End: 08-29-2023 Evaluation and management of inpatient Dr. Margo Tatum Work Phone: [facility] Work Phone: Start: 08-26-2023 End: 08-29-2023 Dr. Margo Tatum Work Phone: [facility] Work Phone: Start: 08-11-2023 End: 08-11-[address] Margo Tatum Work Phone: [facility] Work Phone: Start: 08-11-2023 End: 08-11-[address] Margo Tatum Work Phone: [facility] Work Phone: Start: 08-11-2023 End: 08-11-2023 Dr. Margo Tatum Work Phone: [facility] Work Phone: Start: 08-02-2023 End: 08-02-2023 Emergency department patient visit Dr. Margo Tatum Work Phone: [facility]-Emergency Department Work Phone: Start: 08-02-2023 End: 08-02-2023 Dr. Margo Tatum Work Phone: [facility]-Emergency Department Work Phone: Start: 07-25-2023 End: 07-25-[address] Margo Tatum Work Phone: [facility] Work Phone: Start: 07-25-2023 End: 07-25-2023 Dr. Margo Tatum Work Phone: [facility] Work Phone: Start: 07-15-2023 End: 07-15-[address] Margo Tatum Work Phone: [facility] Work Phone: Start: 07-15-2023 End: 07-15-[address] Margo Tatum Work Phone: [facility], [facility] Work Phone: Start: 07-15-2023 End: 07-15-2023 Dr. Margo Tatum Work Phone: [facility] Work Phone: Start: 06-24-2023 End: 06-24-[address] Margo Tatum [facility] Work Phone: Start: 06-24-2023 End: 06-24-2023 Dr. Margo Tatum [facility] Work Phone: Start: 06-24-2023 End: 06-24-[address] Margo Tatum Work Phone: [facility] Work Phone: Start: 06-24-2023 End: 06-24-2023 Dr. Margo Tatum Work Phone: [facility] Work Phone: Start: 06-13-2023 End: 06-13-[address] Margo Tatum Work Phone: [facility] Work Phone: Start: 06-13-2023 End: 06-13-2023 Dr. Margo Tatum Work Phone: [facility] Work Phone: Start: 05-19-2023 End: 05-19-[address] Margo Tatum Work Phone: [facility] Work Phone: Start: 05-19-2023 End: 05-19-[address] Margo Tatum Work Phone: [facility], [facility] Work Phone: Start: 05-19-2023 End: 05-19-2023 Dr. Margo Tatum Work Phone: [facility], [facility] Work Phone: Start: 05-18-2023 End: 05-18-2023 Emergency department patient visit Dr. Margo Tatum Work Phone: [facility]-Emergency Department Work Phone: Start: 05-18-2023 End: 05-18-2023 Dr. Margo Tatum Work Phone: [facility]-Emergency Department Work Phone: Start: 05-11-2023 End: 05-11-[address] Margo Tatum Work Phone: [facility] Work Phone: Start: 04-29-2023 End: 04-29-[address] Margo Tatum Work Phone: [facility] Work Phone: Start: 03-08-2023 End: 03-08-[address] Margo Tatum Work Phone: [facility] Work Phone: Start: 01-26-2023 End: 01-26-[address] Margo Tatum Work Phone: [facility] Work Phone: Start: 12-20-[address] Margo Tatum [facility]: Start: 12-16-2022 Non-patient / Non-visit Dr. Annabella Tatum Work Phone: [facility] Work Phone: Start: 12-16-2022 Non-patient / Non-visit Dr. Annabella Tatum Work Phone: [facility] Start: 12-16-2022 End: 12-16-[address] Margo Tatum Work Phone: [facility] Work Phone: Start: 12-16-2022 End: 12-16-[address] Margo Tatum [facility] Work Phone: Start: 10-20-2022 End: 10-20-[address] Margo Tatum Work Phone: [facility] Work Phone: Start: 10-18-2022 End: 10-18-2022 Emergency department patient visit Dr. Margo Tatum Work Phone: [facility]-Emergency Department Start: 10-07-2022 End: 10-07-2022 Emergency department patient visit Dr. Margo Tatum Work Phone: [facility]-Emergency Department Start: 10-07-2022 End: 10-07-[address] Margo Tatum Work Phone: [facility] Work Phone: Start: 10-07-2022 End: 10-07-[address] Margo Tatum Work Phone: [facility]-Outpatient Bone Densitometry Start: 10-04-2022 [facility] Facility[facility] Start: 10-01-2022 End: 10-01-[address] Margo Tatum Work Phone: [facility] Work Phone: Start: 10-01-2022 End: 10-01-[address] Margo Tatum Work Phone: [facility]-Laboratory Start: 09-23-2022 End: 09-23-[address] Margo Tatum Work Phone: [facility] Start: 09-20-2022 End: 09-20-2022 Emergency department patient visit [facility] Facility:[facility] Start: 09-20-2022 End: 09-20-2022 Emergency department patient visit Rupali Shaw MD, PhD Work Phone: [facility] Emergency Department Start: 09-20-2022 ambulatory [facility] Start: 09-14-2022 End: 09-14-[address] Margo Tatum Work Phone: [facility] Start: 09-06-2022 End: 09-06-2022 Emergency department patient visit Dr. Margo Tatum Work Phone: [facility]-Emergency Department Start: 09-02-2022 Non-patient / Non-visit Dr. Annabella Tatum Work Phone: [facility] Start: 09-02-2022 End: 09-02-2022 Emergency department patient visit Dr. Margo Tatum Work Phone: [facility]-Emergency Department Start: 08-26-2022 End: 08-26-[address] Margo Tatum Work Phone: [facility] Start: 08-18-2022 End: 08-18-2022 ambulatory MARGO TATUM Facility:[facility] Start: 08-18-2022 End: 08-18-2022 Subsequent hospital visit by physician Serafin Padron MD Work Phone: [facility] Comment on above: Other cardiomyopathy Start: 08-07-2022 Non-patient / Non-visit Dr. Annabella Tatum Work Phone: [facility] Start: 08-07-2022 Non-patient / Non-visit Dr. Annabella Tatum Work Phone: [facility] Start: 08-06-2022 End: 08-06-2022 Non-patient / Non-visit Dr. Margo Tatum Work Phone: [facility] Start: 08-06-2022 Non-patient / Non-visit Dr. Annabella Tatum Work Phone: [facility] Start: 08-06-2022 End: 08-07-2022 Evaluation and management of inpatient Dr. Margo Tatum Work Phone: [facility] Start: 08-06-2022 End: 08-07-[address] Margo Tatum Work Phone: [facility] Work Phone: Start: 07-30-2022 End: 07-30-[address] Margo Tatum Work Phone: [facility] Work Phone: Start: 07-30-2022 End: 07-30-[address] Margo Tatum Work Phone: [facility]Laboratory Start: 07-20-2022 ambulatory MARGO TATUM Facility:[facility] Start: 06-30-2022 End: 06-30-2022 Emergency department patient visit Dr. Margo Tatum Work Phone: [facility]-Emergency Department Start: 06-09-2022 End: 06-09-[address] Margo Tatum Work Phone: [facility] Start: 06-03-2022 End: 06-03-[address] Margo Tatum Work Phone: [facility] Work Phone: Start: 06-03-2022 End: 06-03-[address] [facility]atum [facility] Start: 05-25-2022 End: 05-25-[address] Margo Tatum Work Phone: [facility] Work Phone: Start: 05-25-2022 End: 05-25-[address] Margo Tatum Work Phone: [facility] Start: 05-19-2022 End: 05-19-[address] Margo Tatum Work Phone: [facility] Work Phone: Start: 05-19-2022 End: 05-19-[address] Margo Tatum [facility] Start: 05-19-2022 End: 05-19-[address] Margo Tatum Work Phone: [facility] Start: 05-18-2022 End: 05-18-[address] Margo Tatum [facility] Start: 05-18-2022 End: 05-18-[address] Margo Tatum Work Phone: [facility] Start: 05-08-2022 End: 05-08-2022 Emergency department patient visit Dr. Margo Tatum Work Phone: [facility]-Emergency Department Start: 05-06-2022 End: 05-06-[address] Margo Tatum Work Phone: [facility]Laboratory Start: 05-06-2022 End: 05-06-[address] Margo Tatum Work Phone: [facility] Start: 05-06-2022 ambulatory [facility] Facility:[facility] Start: 04-22-2022 Non-patient / Non-visit Dr. Annabella Tatum Work Phone: [facility] Start: 04-22-2022 End: 04-22-[address] Margo Tatum Work Phone: [facility] Work Phone: Start: 04-22-2022 End: 04-22-[address] Margo Tatum Work Phone: [facility]-Cardiovascular Services Start: 04-13-2022 End: 04-13-[address] Margo Tatum Work Phone: [facility] Work Phone: Start: 04-13-2022 End: 04-13-[address] Margo Tatum Work Phone: [facility]Laboratory Start: 04-13-2022 End: 04-13-[address] Margo Tatum Work Phone: [facility] Start: 04-12-2022 End: 04-12-[address] Margo Tatum Work Phone: [facility] Work Phone: Start: 04-12-2022 End: 04-12-[address] Margo Tatum Work Phone: [facility] Start: 04-05-2022 End: 04-05-2022 Emergency department patient visit Dr. Margo Tatum Work Phone: [facility]-Emergency Department Start: 03-09-2022 Non-patient / Non-visit Dr. Annabella Tatum Work Phone: [facility] Start: 03-09-2022 End: 03-09-[address] Margo Tatum Work Phone: [facility] Work Phone: Start: 03-09-2022 End: 03-09-[address] Margo Tatum [facility] Start: 02-24-2022 End: 02-24-[address] Margo Tatum Work Phone: [facility] Work Phone: Start: 02-24-2022 End: 02-24-[address] Margo Tatum Work Phone: [facility], [facility] Start: 02-24-2022 End: 02-24-[address] Margo Tatum Work Phone: [facility] Start: 02-09-2022 End: 02-09-[address] Margo Tatum Work Phone: [facility] Start: 01-24-2022 End: 01-25-2022 Emergency department patient visit Dr. Margo Tatum Work Phone: [facility]-Emergency Department Start: 01-17-[address] Margo knight [facility] Start: 01-17-2022 Non-patient / Non-visit Dr. Annabella Tatum Work Phone: [facility] Start: 01-12-2022 End: 01-12-[address] Margo Tatum Work Phone: [facility] Start: 12-29-2021 End: 12-29-[address] Margo Tatum Work Phone: [facility] Start: 11-17-2021 End: 11-17-2021 Emergency department patient visit Dr. Margo Tatum Work Phone: [facility]-Emergency Department Start: 11-06-2021 End: 11-06-2021 Emergency department patient visit Dr. Margo Tatum [facility] Start: 10-27-2021 End: 10-27-[address] Margo Tatum Work Phone: [facility]Labor[facility] Start: 10-15-2021 End: 10-15-[address] Margo Tatum Work Phone: [facility] Start: 09-20-2021 End: 09-20-2021 Emergency department patient visit Dr. Margo Tatum Work Phone: [facility]-Emergency Department Start: 09-16-2021 End: 09-16-2021 Emergency department patient visit Dr. Margo Tatum Work Phone: [facility]-Emergency Department Start: 09-14-2021 Non-patient / Non-visit Dr. Annabella Tatum Work Phone: [facility] Start: 09-14-2021 Non-patient / Non-visit Dr. Annabella Tatum Work Phone: [facility] Start: 09-13-2021 Non-patient / Non-visit Dr. Annabella Tatum Work Phone: [facility] Start: 09-13-2021 Non-patient / Non-[facility] Start: 09-12-2021 Non-patient / Non-visit Dr. Annabella Tatum Work Phone: [facility] Start: 09-12-2021 Non-patient / Non-visit Dr. Annabella Tatum Work Phone: [facility] Start: 09-12-2021 Non-patient / Non-visit Dr. Annabella Tatum Work Phone: [facility] Start: 09-11-2021 Non-patient / Non-visit Dr. Annabella Tatum Work Phone: [facility] Start: 09-11-2021 Non-patient / Non-visit Dr. Annabella Tatum Work Phone: [facility] Start: 09-11-2021 Non-patient / Non-visit Dr. Annabella Tatum Work Phone: [facility] Start: 09-10-2021 Non-patient / Non-visit Dr. Annabella Tatum Work Phone: [facility] Start: 09-10-2021 Non-patient / Non-visit Dr. Annabella Tatum Work Phone: [facility] Start: 09-10-2021 Non-patient / Non-visit [facility] Start: 09-09-2021 Non-patient / Non-visit Dr. Annabella Tatum Work Phone: [facility] Start: 09-09-2021 Non-patient / Non-visit Dr. Annabella Tatum Work Phone: [facility] Start: 09-08-2021 End: 09-14-2021 Evaluation and management of inpatient Dr. Margo Tatum [facility] Start: 09-08-2021 Non-patient / Non-visit Dr. Annabella Tatum Work Phone: [facility] Start: 07-30-2021 End: 07-30-[address] Margo Tatum Work Phone: [facility]-Laboratory, Specimen Start: 07-19-2021 Non-patient / Non-visit Dr. Annabella Tatum Work Phone: [facility] Start: 07-18-2021 Non-patient / Non-visit Dr. Annabella Tatum Work Phone: [facility] Start: 07-17-2021 Non-patient / Non-visit Dr. Annabella Tatum Work Phone: [facility] Start: 07-17-2021 End: 07-19-2021 Evaluation and management of inpatient Dr. Margo Tatum [facility] Start: 07-08-2021 End: 08-03-[address] Margo Tatum Work Phone: [facility]-Cardiac Rehab Start: 07-07-2021 End: 07-07-[address] Margo Tatum Work Phone: [facility]atory, [place] Start: 07-06-2021 End: 07-06-[address] Margo Tatum [facility] Start: 06-16-2021 End: 06-16-[address] [facility] Start: 06-09-2021 End: 06-09-[address] Margo Tatum Work Phone: [facility] Start: 06-08-2021 End: 06-08-[address] Margo Tatum Work Phone: [facility] Start: 06-07-2021 End: 06-07-2021 Emergency department patient visit Dr. Margo Tatum Work Phone: [facility]-Emergency Department Start: 06-04-2021 End: 06-04-2021 Emergency department patient visit Dr. Margo Tatum [facility] Start: 05-25-2021 Non-patient / Non-visit Dr. Annabella Tatum Work Phone: [facility] Start: 05-25-2021 Non-patient / Non-visit Dr. Annabella Tatum Work Phone: [facility] Start: 05-24-2021 Non-patient / Non-visit Dr. Annabella Tatum Work Phone: [facility] Start: 05-23-2021 Non-patient / Non-visit Dr. Annabella Tatum Work Phone: [facility] Start: 05-22-2021 End: 05-25-2021 Evaluation and management of inpatient Dr. Margo Tatum Work Phone: [facility]-Progressive Care Unit Start: 05-22-2021 Non-patient / Non-visit Dr. Annabella Tatum Work Phone: [facility] Start: 05-20-2021 Non-patient / Non-visit Dr. Annabella Tatum Work Phone: [facility] Start: 05-19-2021 Non-patient / Non-visit Dr. Annabella Tatum Work Phone: [facility] [facility] Start: 05-19-2021 Non-patient / Non-visit Dr. Annabella Tatum Work Phone: [facility] Start: 05-18-2021 End: 05-20-2021 Evaluation and management of inpatient Dr. Margo Tatum Work Phone: [facility]-Progressive Care Unit Start: 05-18-2021 Non-patient / Non-visit Dr. Annabella Tatum Work Phone: [facility] Start: 11-12-2011 Evaluation and management of inpatient Dr. Margo Tatum Work Phone: [facility]- Start: 11-12-2011 Dr. Margo Ttaum Work Phone: [facility]- Procedures Date Procedure Procedure Detail Performing Clinician Start: 11-30-2024 Plain chest X-ray Mehanz Laughlin MD Work Phone: Start: 11-30-2024 Blood count smear mcrscp w/mnl difrntl wbc count Mehnaz Laughlin MD Work Phone: Start: 11-30-2024 D-dimer assay, quantitative Mehnaz Laughlin MD Work Phone: Start: 11-30-2024 Estimated creatinine clearance Mehnaz Laughlin MD Work Phone: Start: 11-30-2024 Mean corpuscular hemoglobin concentration determination Mehnaz Laughlin MD Work Phone: Start: 11-30-2024 Nucleated red blood cell count procedure Mehnaz Laughlin MD Work Phone: Start: 11-30-2024 Platelet mean volume determination Mehnaz Laughlin MD Work Phone: Start: 11-30-2024 Mehnaz Laughlin MD Work Phone: Start: 10-15-2024 Plain chest X-ray Mehnaz Laughlin MD Work Phone: Start: 10-15-2024 Blood count smear mcrscp w/mnl difrntl wbc count Mehnaz Laughlin MD Work Phone: Start: 10-15-2024 Estimated creatinine clearance Mehnaz Laughlin MD Work Phone: Start: 10-15-2024 Mean corpuscular hemoglobin concentration determination Mehnaz Laughlin MD Work Phone: Start: 10-15-2024 Nucleated red blood cell count procedure Mehnaz Laughlin MD Work Phone: Start: 10-15-2024 Platelet mean volume determination Mehnaz Laughlin MD Work Phone: Start: 09-25-2024 Benzodiazepine measurement, urine Mehnaz Laughlin MD Work Phone: Start: 09-25-2024 Cocaine measurement, urine Mehnaz Laughlin MD Work Phone: Start: 09-25-2024 Methadone measurement, urine Mehnaz russell MD Work Phone: Start: 09-25-2024 Procedure Mehnaz Laughlin MD Work Phone: Comment on above: Test Ordered: [id number]-Dszmli+S I4Bbzdarziomsh Screen, Urine Negative ng/mL UI Reference Range: Ukuoos=451Lucyqwhwyru test includes Amphetamine and Methamphetamine.Barbiturates Negative ng/mL UI Reference Range: Vjtxrl=146Owlghbelqhdtmev Negative ng/mL UI Reference Range: Heuxfx=189Zgoavmg (Metab.), Urine Negative ng/mL UI Reference Range: Sflekc=644Ynkvltq Note: ng/mL UI See Final Results Reference Range: Xaoniz=497Pnfuxt test includes Codeine, Morphine, Hydromorphone, Hydrocodone.Opiates Positive [A ] UI Reference Range: Qwtyof=247Atixjw test includes Codeine, Morphine, Hydromorphone, Hydrocodone.Codeine Negative UI Reference Range: Xfgupr=211Vpjixsls Negative UI Reference Range: Hlqdtr=297Xsoxhiiektorz Positive [A ] UI Reference Range: .Hydromorphone Conf, MS, UR 108 ng/mL UI Reference Range: Umbsya=316Bkzkegeseym Positive [A ] UI Reference Range: .Hydrocodone Conf, MS, UR 553 ng/mL UI Reference Range: Nwzdui=4814-Gqcrfcavpiletu, Urine Negative ng/mL UI Reference Range: Cutoff=10Oxycodone/Oxymorphone, Urine Negative ng/mL UI Reference Range: Jfrmgv=559Pcoq includes Oxycodone and OxymorphonePCP, Urine Negative ng/mL UI Reference Range: Cutoff=25Methadone Screen, Urine Negative ng/mL UI Reference Range: Hrqcrk=031Xfuzftnqqwpk, Urine Negative ng/mL UI Reference Range: Ojqbyd=710Tifvpqsx, Urine Negative ng/mL UI Reference Range: Cutoff=2.0Test includes Fentanyl and NorfentanylThis test was developed and its performance characteristicsdetermined by [employer]. It has not been cleared orapproved by the Food and Drug Administration.Tramadol Negative ng/mL UI Reference Range: Huygyw=367Hjujsxzbhuyth, Urine Negative ng/mL UI Reference Range: Cutoff=10Creatinine, Urine 74.4 mg/dL UI Reference Range: 20.0-300.0pH, Urine 5.4 UI Reference Range: 4.5-8.9Performed at: [facility] [[email or web address]] [facility] [id number] [place], [place] [id number] Director: Rand Jaquez PhD, Phone: [phone] at: [facility] [address] [id number] Director: Vargas Kim PhD, Phone: [phone] Start: 09-25-2024 Urine cannabinoid measurement Mehnaz dallas MD Work Phone: Start: 09-25-2024 Urine opiate measurement Mehnaz Laughlin MD Work Phone: Start: 09-24-2024 US scan of thyroid Mehnaz Laughlin MD Work Phone: Start: 09-11-2024 Estimated creatinine clearance Mehnaz Laughlin MD Work Phone: Start: 09-11-2024 Mean corpuscular hemoglobin concentration determination Mehnaz Laughlin MD Work Phone: Start: 09-11-2024 Platelet mean volume determination Mehnaz Laughlin MD Work Phone: Start: 09-10-2024 Nucleic acid assay Mehnaz Laughlin MD Work Phone: Start: 09-10-2024 SARS-CoV-2, Influenza & RSV (PCR) Mehnaz Laughlin MD Work Phone: Start: 09-10-2024 Mehnaz Laughlin MD Work Phone: Start: 09-10-2024 Blood count smear mcrscp w/mnl difrntl wbc count Mehnaz Laughlin MD Work Phone: Start: 09-10-2024 Nucleated red blood cell count procedure Mehnaz Laughlin MD Work Phone: Start: 09-09-2024 CT angiography of chest with contrast eMhnaz Laughlin MD Work Phone: Start: 09-09-2024 Plain chest X-ray Mehnaz Laughlin MD Work Phone: Start: 09-09-2024 D-dimer assay, quantitative Mehnaz Laughlin MD Work Phone: Comment on above: D-Dimer ELEVATED (>0.49): Additional carley dies and clinicalassessments are indicated to conclude diagnosis of:Deep Vein Thrombosis (DVT) or Pulmonary Embolism (PE)CRITICAL VALUE CALLED TO Sherrie RODRIGES09/09/24 Burton Browning.RESULTS READ BACK BY SAME. Start: 05-30-2024 X-ray of chest, PA and lateral views Mehnaz Laughlin MD Work Phone: Start: 05-30-2024 SARS-CoV-2, Influenza & RSV (PCR) Mehnaz Laughlin MD Work Phone: Start: 09-08-2023 Dr. Margo Tatum Work Phone: Start: 09-06-[address] Margo Tatum Work Phone: Start: 08-26-2023 Computed tomography of abdomen and pelvis with intravenous contrast Dr. Margo Tatum Work Phone: Start: 08-26-[address] Margo Tatum Work Phone: Start: 08-02-2023 SARS-CoV-2, Influenza & RSV (PCR) Dr. Margo Tatum Work Phone: Start: 08-02-2023 Dr. Margo Tatum Work Phone: Start: 08-02-2023 Plain chest X-ray Dr. Margo Tatum Work Phone: Start: 07-15-[address] Margo Tatum Work Phone: Start: 05-19-2023 US scan of thyroid Dr. aMrgo Tatum Work Phone: Start: 05-18-2023 Plain chest X-ray Dr. Margo Tatum Work Phone: Start: 10-18-2022 Computed tomography of abdomen and pelvis with intravenous contrast Dr. Margo Tatum Work Phone: Start: 10-07-2022 CT cervical spine without contrast Dr. Margo Tatum Work Phone: Start: 10-07-2022 CT of chest and abdomen Dr. Margo Tatum Work Phone: Start: 10-07-2022 CT of head without contrast Dr. Margo ni Work Phone: Start: 10-07-2022 Dual energy X-ray absorptiometry Dr. Nicole Tatum Work Phone: Start: 09-20-2022 Ct thorax w/contrast material Iza cook DO Work Phone: Start: 09-20-2022 Radiologic exam chest 2 views Edward Pandey MD Work Phone: Start: 09-20-2022 CBC AND ELECTRONIC DIFF Edward Pandey MD Work Phone: Start: 09-20-2022 Complete blood count with white cell differential, automated Edward Pandey MD Work Phone: Start: 09-20-2022 GOLD TOP TUBE Edward Pandey MD Work Phone: Start: 09-20-2022 Gonadotropin chorionic quantitative Edward Pandey MD Work Phone: Start: 09-20-2022 Hepatic function panel Edward Pandey MD Work Phone: Start: 09-20-2022 LACTATE, WHOLE BLOOD, SERIAL Edward mcleod MD Work Phone: Start: 09-20-2022 MINT GREEN TOP TUBE Edward Pandey MD Work Phone: Start: 08-18-2022 Glucose measurement, blood Serafin Padron MD Work Phone: Start: 08-18-2022 Radiologic exam chest 2 views Serafin Tello MD Work Phone: Start: 08-18-2022 Cardiac electrophysiology Serafin Padron MD Work Phone: Start: 08-18-2022 Insj/rplcmt perm dfb w/trnsvns lds 1/dual chmbr Serafin Padron MD Work Phone: Start: 08-18-2022 Glucose measurement, blood Serafin Padron MD Work Phone: Start: 08-18-2022 CBC AND ELECTRONIC DIFF Madhuri A Wesova n [employer]ER TECHNICIAN Work Phone: Start: 08-18-2022 Complete blood count with white cell differential, automated Madhuri A Anthony [employer]COMPUTER TECHNICIAN Work Phone: Start: 08-18-2022 Creatinine blood Madhuri A Anthony [employer]COMPUTER TECHNICIAN Work Phone: Start: 08-07-2022 Cardiovascular stress test using pharmacologic stress agent Dr. Margo Tatum Work Phone: Start: 08-06-2022 Plain chest X-ray Dr. Margo Tatum Work Phone: Start: 06-30-[address] Margo Tatum Work Phone: Start: 06-30-2022 X-ray of both feet Dr. Margo Tatum Work Phone: Start: 05-08-2022 Plain x-ray of hand Dr. Margo Tatum Work Phone: Start: 04-12-2022 US scan of thyroid Dr. Margo Tatum Work Phone: Start: 04-05-2022 Plain chest X-ray Dr. Margo Tatum Work Phone: Start: 02-24-2022 Plain chest X-ray Dr. Margo Tatum Work Phone: Start: 01-24-2022 Plain chest X-ray Dr. Margo Tatum Work Phone: Start: 11-17-2021 Plain X-ray of shoulder Dr. Margo Tatum Work Phone: Start: 11-17-2021 X-ray of lumbar spine, two or three views Dr. Margo Tatum Work Phone: Start: 11-06-2021 Plain chest X-ray Dr. Margo Tatum Work Phone: Start: 11-06-2021 SARS-CoV-2 & FLU Antigen (Rapid) Dr. Nicole Tatum Work Phone: Start: 09-16-[address] Margo Tatum Work Phone: Start: 09-16-2021 CT of head without contrast Dr. Margo ni Work Phone: Start: 09-10-2021 Plain chest X-ray Dr. Margo Tatum Work Phone: Start: 09-09-2021 CT angiography of chest with contrast Dr. Margo Tatum Work Phone: Start: 09-08-2021 Plain X-ray abdomen Dr. Margo Tatum Work Phone: Start: 09-08-2021 Plain chest X-ray Dr. Margo Tatum Work Phone: Start: 09-08-2021 Bacteria identified in Blood by Culture Dr. Margo Tatum Work Phone: Start: 09-08-2021 Investigation of transfusion reaction Dr. Margo Tatum Work Phone: Start: 09-08-[address] Margo knight Work Phone: Start: 07-17-2021 Plain chest X-ray Dr. Margo Tatum Work Phone: Start: 06-16-[address] Margo Tatum Work Phone: Start: 06-07-2021 Plain chest X-ray Dr. Margo Tatum Work Phone: Start: 06-04-2021 Plain chest X-ray Dr. Margo Tatum Work Phone: Start: 06-04-2021 SARS-CoV-2 Antigen (Rapid) Dr. Margo damon Work Phone: Start: 06-04-2021 CT angiography of chest with contrast Dr. Margo Tatum Work Phone: Start: 05-22-2021 CT angiography of chest with contrast Dr. Margo Tatum Work Phone: Start: 05-22-2021 Plain chest X-ray Dr. Margo Tatum Work Phone: Start: 05-22-2021 SARS-CoV-2 Antigen (Rapid) Dr. Margo damon Work Phone: Start: 05-19-2021 History of placement of stent for coronary artery disease History of coronary artery stent placement Dr. Margo Tatum Work Phone: Comment on above: PCI-BEATRICE-Mid LAD w/ 2.5 x 15 mm Orsiro Mi ssion Stent 05/19/2021 Start: 05-18-2021 Plain chest X-ray Dr. Margo Tatum Work Phone: Start: 06-06-1991 History of cholecystectomy History of cholecystectomy Dr. Margo Tatum Work Phone: H/O: hysterectomy History of hysterectomy Dr. Margo Tatum Work Phone: History of tonsillectomy History of tonsillectomy Dr. Margo Tatum Work Phone: SARS-CoV-2 & FLU Antigen (Rapid) Dr. Margo Tatum Work Phone: Urine culture Dr. Margo Tatum Work Phone: Urine culture Dr. Margo Tatum Work Phone: Plan of Treatment Date Care Activity Detail Author Start: 03-25-2026 Tetanus vaccination TETANUS [facility] Start: 11-30-2024 Admission procedure [facility] Start: 11-30-2024 Hospital admission, emergency, from emergency room, medical nature [facility] Start: 11-30-2024 [facility] Start: 10-15-2024 [facility] Start: 10-15-2024 End: 10-15-2024 [facility] Start: 09-25-2024 Procedure [facility] Start: 09-11-2024 Patient discharge [facility] Start: 09-10-2024 [facility] Start: 09-10-2024 [facility] Start: 09-09-2024 Following clinical pathway protocol [facility] Start: 09-09-2024 Assessment of risk of venous thromboembolism [facility] Start: 09-09-2024 Care regimes management [facility] Start: 09-09-2024 Insertion of catheter into peripheral vein [facility] Start: 09-09-2024 Measuring intake and output [facility] Start: 09-09-2024 Notification of physician [facility] Start: 09-09-2024 Oxygen therapy [facility] Start: 09-09-2024 Providing care according to standard [facility] Start: 09-09-2024 Provision of activity privileges [facility] Start: 09-09-2024 Referral to occupational therapist [facility] Start: 09-09-2024 Referral to service [facility] Start: 09-09-2024 End: 09-09-2024 [facility] Start: 09-09-2024 Verification routine [facility] Start: 09-09-2024 Admission procedure [facility] Start: 09-09-2024 Hospital admission, emergency, from emergency room, medical nature [facility] Start: 09-09-2024 [facility] Start: 09-09-2024 [facility] Start: 09-09-2024 Inhalation therapy procedure [facility] Start: 05-30-2024 [facility] Start: 09-21-2023 Potassium [Moles/volume] in Serum or Plasma POTASSIUM [facility] Start: 09-10-2023 Patient discharge [facility] Start: 09-06-2023 Application of intermittent pneumatic compression device [facility] Start: 09-06-2023 Following clinical pathway protocol [facility] Start: 09-06-2023 Ambulation without limitation [facility] Start: 09-06-2023 Assessment of risk of venous thromboembolism [facility] Start: 09-06-2023 Care regimes management [facility] Start: 09-06-2023 Consultation [facility] Start: 09-06-2023 Documentation procedure [facility] Start: 09-06-2023 Insertion of catheter into peripheral vein [facility] Start: 09-06-2023 Measuring intake and output [facility] Start: 09-06-2023 Notification of physician [facility] Start: 09-06-2023 Providing care according to standard [facility] Start: 09-06-2023 [facility] Start: 09-06-2023 Verification routine [facility] Start: 09-06-2023 Admission procedure [facility] Start: 09-06-2023 Hospital admission, emergency, from emergency room, medical nature [facility] Start: 09-06-2023 Bacteria identified in Urine by Culture [facility] Start: 09-06-2023 [facility] Start: 09-06-2023 Prothrombin time [facility] Start: 09-06-2023 Consultation [facility] Start: 08-29-2023 Patient discharge [facility] Start: 08-28-2023 Application of intermittent pneumatic compression device [facility] Start: 08-28-2023 Removal of urinary catheter [facility] Start: 08-27-2023 Irrigation of urinary bladder [facility] Start: 08-26-2023 Following clinical pathway protocol [facility] Start: 08-26-2023 Assessment of risk of venous thromboembolism [facility] Start: 08-26-2023 Care regimes management [facility] Start: 08-26-2023 Consultation [facility] Start: 08-26-2023 Incentive spirometry [facility] Start: 08-26-2023 Inhalation therapy procedure [facility] Start: 08-26-2023 Insertion of catheter into peripheral vein [facility] Start: 08-26-2023 Introduction of urinary catheter [facility] Start: 08-26-2023 Irrigation of urinary bladder [facility] Start: 08-26-2023 Measuring intake and output [facility] Start: 08-26-2023 Notification of physician [facility] Start: 08-26-2023 Providing care according to standard [facility] Start: 08-26-2023 Provision of activity privileges [facility] Start: 08-26-2023 Referral to service [facility] Start: 08-26-2023 [facility] Start: 08-26-2023 Hospital admission, emergency, from emergency room, medical nature [facility] Start: 08-26-2023 Verification routine [facility] Start: 08-26-2023 Admission procedure [facility] Start: 08-26-2023 End: 08-27-2023 [facility] Start: 08-26-2023 Bacteria identified in Urine by Culture [facility] Start: 08-26-2023 Urine culture Urine Culture [facility] Start: 08-02-2023 [facility] Start: 08-02-2023 End: 08-02-2023 [facility] Start: 06-24-2023 Patient referral [facility] Work Phone: Start: 05-18-2023 [facility] Start: 02-04-2023 Influenza vaccination INFLUENZA VACCINE (Season Ended) [facility] Start: 12-20-2022 Procedure [facility] Start: 10-07-2022 Dual energy X-ray absorptiometry Dexa Bone Density Study [facility] Start: 10-07-2022 DXA Bone [Mass/Area] Bone density [facility] Start: 09-20-2022 End: 09-20-2022 Patient encounter procedure 09/20/2022 Office Visit Cardiovascular Medicine Lizbeth Cesar MD [address] [place] [address] [facility] Start: 08-07-2022 Patient discharge [facility] Start: 08-07-2022 Blood chemistry [facility] Start: 08-07-2022 Cardiovascular stress test using pharmacologic stress agent Nuclear Stress Test - Chemical [facility] Start: 08-07-2022 Verification routine [facility] Start: 08-07-2022 Care regimes management [facility] Start: 08-07-2022 Notification of physician [facility] Start: 08-07-2022 [facility] Start: 08-06-2022 Following clinical pathway protocol [facility] Start: 08-06-2022 Assessment of risk of venous thromboembolism [facility] Start: 08-06-2022 Insertion of catheter into peripheral vein [facility] Start: 08-06-2022 Measuring intake and output [facility] Start: 08-06-2022 Oxygen therapy [facility] Start: 08-06-2022 Providing care according to standard [facility] Start: 08-06-2022 Tobacco use cessation education [facility] Start: 08-06-2022 [facility] Start: 08-06-2022 Electrocardiographic procedure [facility] Start: 08-06-2022 Verification routine [facility] Start: 08-06-2022 Admission procedure [facility] Start: 04-05-2022 [facility] Start: 02-04-2022 Influenza vaccination INFLUENZA VACCINE (#1) [facility] Start: 01-24-2022 [facility] Work Phone: Start: 11-17-2021 Plain X-ray of shoulder Shoulder min 2 Views [facility] Work Phone: Start: 11-17-2021 X-ray of lumbar spine, two or three views Lumbar Spine 2 or 3 Views [facility] Work Phone: Start: 11-06-2021 [facility] Work Phone: Start: 09-08-2021 Bacteria identified in Blood by Culture Blood Culture [facility] Work Phone: Start: 09-08-2021 Microscopic observation [Identifier] in Unspecified specimen by Gram stain Gram Stain [facility] Work Phone: Start: 09-08-2021 Respiratory Culture Respiratory Culture [facility] Work Phone: Start: 12-12-2019 Zoster vaccine hzv live for subcutaneous use ZOSTER (SHINGLES) VACCINE (1 of 2) [facility] Start: 2014 Screening for malignant neoplasm of colon COLORECTAL CANCER SCREENING DISCUSSION [facility] Start: 2009 Lipid panel LIPID SCREENING [facility] Start: 2009 Screening for malignant neoplasm of breast MAMMOGRAM SCREENING DISCUSSION [facility] Start: 1990 Screening for malignant neoplasm of cervix CERVICAL CANCER SCREENING DISCUSSION [facility] Start: 1984 HIV screening HIV SCREENING DISCUSSION [facility] Start: 06-13-1970 COVID-19 VACCINE (#1) COVID-19 VACCINE (#1) [facility] Start: 1969 Hepatitis C screening HEPATITIS C VIRUS SCREENING [facility] Anion gap measurement [facility] Bacteria identified in Blood by Culture [facility] Bilirubin measurement, urine [facility] BUN/Creatinine ratio [facility] Calcium [Mass/volume ] in Serum or Plasma [facility] Carbon dioxide, tota l [Moles/volume] in Serum or Plasma [facility] Chloride [Moles/volu me] in Serum or Plasma [facility] Cholesterol [Mass/vo lume] in Serum or Plasma [facility] Cholesterol in HDL [Mass/volume] in Serum or Plasma [facility] Cholesterol in LDL [Mass/volume] in Serum or Plasma [facility] Comprehensive metabo lic 2000 panel - Serum or Plasma [facility] Creatinine [Moles/vo lume] in Serum or Plasma [facility] DXA Bone [Mass/Area] Bone density [facility] Glucose [Mass/volume ] in Serum or Plasma [facility] Hemoglobin [Presence ] in Urine [facility] INR in Blood by Coag ulation assay [facility] End: 08-18-2022 Interrogation of cardiac pacemaker PACEMAKER/ICD INTERROGATION [facility]iac Services Routine One Time for 1 Occurrences starting 08/18/2022 until 08/18/2022 [facility] Work Phone: Comment on above: One Time for 1 Occurrences starting 08/04 until 08/18/2022 LAVENDER TOP TUBE LAVENDER TOP T UBE Lab STAT 09/20/2022 3:23 PM EDT [facility] Lipid 1996 panel - S kobi or Plasma [facility] LT BLUE TOP TUBE LT BLUE TOP TUB E Lab STAT 09/20/2022 3:23 PM EDT [facility] Measurement of keton es in urine using dipstick [facility] Measurement of renal function [facility] Microscopic urinalysis [facility] Patient Education [facility] Work Phone: Patient referral [facility] Work Phone: pH of Urine [facility] Potassium [Moles/vol ume] in Serum or Plasma [facility] RAINBOW DRAW RAINBOW DRAW Lab STAT 09/20/2022 3:23 PM EDT [facility] Sodium [Moles/volume ] in Serum or Plasma [facility] Specific gravity of Urine [facility] End: 09-20-2022 Standard ECG [facility] Work Phone: Comment on above: One Time for 1 Occurrences starting 09/04 until 09/20/2022 T4 free measurement [facility] T4 free measurement [facility] Thyroid stimulating hormone measurement [facility] Thyroid stimulating hormone measurement [facility] Triglycerides measurement [facility] Triiodothyronine, fr ee measurement [facility] Triiodothyronine, fr ee measurement [facility] Urea nitrogen [Mass/ volume] in Serum or Plasma [facility] Urinalysis, blood, qualitative [facility] Urine dipstick for glucose [facility] Urine dipstick for l eukocyte esterase [facility] Urine dipstick for nitrite [facility] Urine dipstick for protein [facility] Urine examination [facility] Urine microalbumin/c reatinine ratio measurement [facility] Urine microscopy: ep ithelial cells [facility] Urine Microscopy: white cells [facility] Urobilinogen [Presen ce] in Urine [facility] Work Phone: Vitamin D, 25-hydrox y measurement [facility] VLDL cholesterol measurement [facility] Immunizations Immunization Date Immunization Notes Care Provider Fa cility 11-29-2020 Covid (Moderna) Dr. Margo ni Work Phone: [facility] 11-24-2020 Covid (Moderna) Dr. Margo ni Work Phone: [facility] 11-01-2020 Covid (Moderna) Dr. Margo ni Work Phone: [facility] 10-30-2020 Covid (Moderna) Dr. Margo ni Work Phone: [facility] 03-25-2016 tetanus toxoid, redu blake diphtheria toxoid, and acellular pertussis vaccine, adsorbed Dr. Margo Tatum Work Phone: [facility] Payers Date Payer Category Payer Medicare [id number] 2023 Medicaid [id number] 2023 Self-pay [id number] 2023 Unknown [id number] 2022 Medicaid [employer] MEDICAID [employer] MEDICAID [id number] 2022-Present [address] [place] [address] [id number] 2022 Medicare [employer] MEDICARE RX [employer] MED[employer] RX [id number] 2022-Present [address] [place] [address] [id number]. [id number] 2022 Unknown [id number] 2016 Unknown [id number] 2011 Unknown [id number] 1969 Unknown [id number] 07.22.830.1.318373.3.579.2.594 1969 Unknown [id number] .1.355308.3.579.2.594 1969 Unknown [id number] .0.1.893239.3.579.2.594 1969 Unknown [id number] 07.22.830.1.963755.3.579.2.594 1969 Unknown [id number] 07.22.830.1.831108.3.579.2.594 1969 Unknown [id number] 840.1.372642.3.579.2.594 Unknown [id number] .840.1.410429.3.579.2.462 Unknown [id number] 840.1.218476.3.579.2.462 Unknown [id number] 840.1.808054.3.579.2.462 Unknown [id number] 840.1.983542.3.579.2.462 Unknown [id number] 2.16.840.1.246883.3.579.2.462 Unknown [id number] 2.16840.1.599434.3.579.2.462 Unknown [id number] 2.16.840.1.353149.3.579.2.462 Unknown [id number] 2.840.1.950156.3.579.2.462 Unknown [id number] 2.16840.1.179188.3.579.2.462 Unknown [id number] 2.840.1.564044.3.579.2.462 Unknown [id number] 2.840.1.571392.3.579.2.462 Unknown [id number] 2.840.1.480963.3.579.2.462 Unknown [id number] 2.840.1.557046.3.579.2.462 Unknown [id number] 2.840.1.546743.3.579.2.462 Unknown [id number] 2.840.1.096409.3.579.2.462 Unknown [id number] 2.840.1.258494.3.579.2.462 Unknown [id number] 2.840.1.330710.3.579.2.462 Unknown [id number] 2.840.1.632580.3.579.2.462 Unknown [id number] 2.840.1.341300.3.579.2.462 Unknown [id number] 2.840.1.815254.3.579.2.462 Unknown [id number] 2.840.1.334318.3.579.2.462 Unknown [id number] 2.840.1.804378.3.579.2.462 Unknown [id number] 2.16.840.1.873025.3.579.2.462 Unknown [id number] 2.16.840.1.057934.3.579.2.462 Unknown [id number] 2.16.840.1.376204.3.579.2.462 Unknown [id number] 2.16.840.1.888013.3.579.2.462 Unknown [id number] 2.16.840.1.210582.3.579.2.462 Unknown [id number] 2.16.840.1.597682.3.579.2.462 Unknown [id number] 2.16840.1.247192.3.579.2.462 Unknown [id number] 2.16840.1.600485.3.579.2.462 Unknown [id number] 2.16840.1.863434.3.579.2.462 Unknown [id number] 2.16840.1.260104.3.579.2.462 Unknown [id number] 2.840.1.798702.3.579.2.462 Unknown [id number] 2.840.1.232970.3.579.2.462 Social History Date Type Detail Facility Start: 09-08-2021 End: 09-06-2023 Tobacco smoking status NHIS Unknown if ever smoked [facility] Start: 11-25-2020 None [facility] Start: 11-25-2020 Homeless [facility] Start: 11-25-2020 Non-smoker [facility] Start: 1970 Sex Assigned At Female [facility] Start: 12-10-2011 [facility] Start: 08-18-2022 End: 09-20-2022 Alcohol intake Current non-drinker of alcohol (finding) [facility] Start: 1970 Sex Assigned At Not on file [facility] Start: 08-08-2022 End: 09-20-2022 Exposure to SARS-CoV-2 (event) Not sure [facility] Start: 09-09-2024 End: 11-30-2024 Tobacco smoking status NHIS Ex-smoker (finding) [facility] Start: 09-09-2024 End: 09-27-2024 Sex Female (finding) [facility] Medical Equipment Procedure Code Equipment Code Equipment Origin al Text Equipment Identifier Dates ([id number]) )[id number] [facility] Start: 05-19-2021 Pen Needle, Diab etic (Bd Ultra-Fine [place] Pen Needle) 32 gauge x 5/32 needle Start: 07-29-2022 Pen Needle, Diab etic (Bd Ultra-Fine [place] Pen Needle) 32 gauge x 5/32 needle Start: 07-08-2022 End: 07-29-2022 Pen Needle, Diab etic (Bd Ultra-Fine [place] Pen Needle) 32 gauge x 5/32 needle Start: 07-29-2022 Pen Needle, Diab etic (Bd Ultra-Fine [place] Pen Needle) 32 gauge x 5/32 needle Start: 07-08-2022 End: 07-29-2022 Pen Needle, Diab etic (Bd Ultra-Fine [place] Pen Needle) 32 gauge x 5/32 needle Start: 07-29-2022 Pen Needle, Diab etic (Bd Ultra-Fine [place] Pen Needle) 32 gauge x 5/32 needle Start: 07-08-2022 End: 07-29-2022 Defibrillator Ca rdiac .99cm 5.37x8.18cm Vigilant X4 Mr - [id number] Start: 08-18-2022 Lead Pacing 86cm 3.9-5.2fr 2.6fr Acuity X4 Quadripolar Kristina - [id number] Start: 08-18-2022 Pen Needle, Diab etic (Bd Ultra-Fine [place] Pen Needle) 32 gauge x 5/32 needle Start: 07-29-2022 Pen Needle, Diab etic (Bd Ultra-Fine [place] Pen Needle) 32 gauge x 5/32 needle Start: 07-08-2022 End: 07-29-2022 Pen Needle, Diab etic (Bd Ultra-Fine [place] Pen Needle) 32 gauge x 5/32 needle Start: 07-29-2022 Pen Needle, Diab etic (Bd Ultra-Fine [place] Pen Needle) 32 gauge x 5/32 needle Start: 07-08-2022 End: 07-29-2022 Pen Needle, Diab etic (Bd Ultra-Fine [place] Pen Needle) 32 gauge x 5/32 needle Start: 07-29-2022 Pen Needle, Diab etic (Bd Ultra-Fine [place] Pen Needle) 32 gauge x 5/32 needle Start: 07-08-2022 End: 07-29-2022 Pen Needle, Diab etic (Bd Ultra-Fine [place] Pen Needle) 32 gauge x 5/32 needle Start: 07-29-2022 Pen Needle, Diab etic (Bd Ultra-Fine [place] Pen Needle) 32 gauge x 5/32 needle Start: 07-08-2022 End: 07-29-2022 Pen Needle, Diab etic (Bd Ultra-Fine [place] Pen Needle) 32 gauge x 5/32 needle Start: 07-29-2022 Pen Needle, Diab etic (Bd Ultra-Fine [place] Pen Needle) 32 gauge x 5/32 needle Start: 07-08-2022 End: 07-29-2022 Pen Needle, Diab etic (Bd Ultra-Fine [place] Pen Needle) 32 gauge x 5/32 needle Start: 07-29-2022 Pen Needle, Diab etic (Bd Ultra-Fine [place] Pen Needle) 32 gauge x 5/32 needle Start: 07-08-2022 End: 07-29-2022 Pen Needle, Diab etic (Bd Ultra-Fine [place] Pen Needle) 32 gauge x 5/32 needle Start: 07-29-2022 Pen Needle, Diab etic (Bd Ultra-Fine [place] Pen Needle) 32 gauge x 5/32 needle Start: 07-08-2022 End: 07-29-2022 Pen Needle, Diab etic (Bd Ultra-Fine [place] Pen Needle) 32 gauge x 5/32 needle Start: 07-29-2022 Pen Needle, Diab etic (Bd Ultra-Fine [place] Pen Needle) 32 gauge x 5/32 needle Start: 07-08-2022 End: 07-29-2022 Pen Needle, Diab etic (Bd Ultra-Fine [place] Pen Needle) 32 gauge x 5/32 needle Start: 07-29-2022 Pen Needle, Diab etic (Bd Ultra-Fine [place] Pen Needle) 32 gauge x 5/32 needle Start: 07-08-2022 End: 07-29-2022 Pen Needle, Diab etic (Bd Ultra-Fine [place] Pen Needle) 32 gauge x 5/32 needle Start: 07-29-2022 Pen Needle, Diab etic (Bd Ultra-Fine [place] Pen Needle) 32 gauge x 5/32 needle Start: 07-08-2022 End: 07-29-2022 Pen Needle, Diab etic (Bd Ultra-Fine [place] Pen Needle) 32 gauge x 5/32 needle Start: 07-29-2022 Pen Needle, Diab etic (Bd Ultra-Fine [place] Pen Needle) 32 gauge x 5/32 needle Start: 07-08-2022 End: 07-29-2022 Pen Needle, Diab etic (Bd Ultra-Fine [place] Pen Needle) 32 gauge x 5/32 needle Start: 07-29-2022 Pen Needle, Diab etic (Bd Ultra-Fine [place] Pen Needle) 32 gauge x 5/32 needle Start: 07-08-2022 End: 07-29-2022 Pen Needle, Diab etic (Bd Ultra-Fine [place] Pen Needle) 32 gauge x 5/32 needle Start: 07-29-2022 Pen Needle, Diab etic (Bd Ultra-Fine [place] Pen Needle) 32 gauge x 5/32 needle Start: 07-08-2022 End: 07-29-2022 Pen Needle, Diab etic (Bd Ultra-Fine [place] Pen Needle) 32 gauge x 5/32 needle Start: 07-29-2022 Pen Needle, Diab etic (Bd Ultra-Fine [place] Pen Needle) 32 gauge x 5/32 needle Start: 07-08-2022 End: 07-29-2022 Pen Needle, Diab etic (Bd Ultra-Fine [place] Pen Needle) 32 gauge x 5/32 needle Start: 07-29-2022 Pen Needle, Diab etic (Bd Ultra-Fine [place] Pen Needle) 32 gauge x 5/32 needle Start: 07-08-2022 End: 07-29-2022 Pen Needle, Diab etic (Bd Ultra-Fine [place] Pen Needle) 32 gauge x 5/32 needle Start: 07-29-2022 Pen Needle, Diab etic (Bd Ultra-Fine [place] Pen Needle) 32 gauge x 5/32 needle Start: 07-08-2022 End: 07-29-2022 Pen Needle, Diab etic (Bd Ultra-Fine [place] Pen Needle) 32 gauge x 5/32 needle Start: 07-29-2022 Pen Needle, Diab etic (Bd Ultra-Fine [place] Pen Needle) 32 gauge x 5/32 needle Start: 07-08-2022 End: 07-29-2022 Pen Needle, Diab etic (Bd Ultra-Fine [place] Pen Needle) 32 gauge x 5/32 needle Start: 07-29-2022 Pen Needle, Diab etic (Bd Ultra-Fine [place] Pen Needle) 32 gauge x 5/32 needle Start: 07-08-2022 End: 07-29-2022 Pen Needle, Diab etic (Bd Ultra-Fine [place] Pen Needle) 32 gauge x 5/32 needle Start: 07-29-2022 Pen Needle, Diab etic (Bd Ultra-Fine [place] Pen Needle) 32 gauge x 5/32 needle Start: 07-08-2022 End: 07-29-2022 Goals Date Patient Goal Desired Activity /State Functional Status Date Assessment Result Facility 09-11-2024 Functional status Ambulates [facility] Work Phone: 09-10-2023 Functional status Ambulates [facility] Work Phone: 08-29-2023 Functional status Ambulates [facility] Work Phone: 08-07-2022 Functional status Bathroom Privilege [facility] Work Phone: 09-14-2021 Functional status Ambulates;Bathroom Priv ilege [facility] Work Phone: 07-19-2021 Functional status Ambulates;Up a d radha;Bathroom Privilege [facility] Work Phone: 05-25-2021 Functional status Ambulates;Chair [facility] Work Phone: 05-20-2021 Functional status Up ad radha [facility] Work Phone: 05-19-2021 Functional status None [facility] Work Phone: Mental Status Date Assessment Result Facility 09-11-2024 Cognitive function Voice/Name [facility] Work Phone: 09-09-2023 Cognitive function Voice/Name [facility] Work Phone: 08-29-2023 Cognitive function Cooperative [facility] Work Phone: 05-18-2023 Cognitive function Awake [facility] Work Phone: 08-07-2022 Cognitive function Voice/Name [facility] Work Phone: 04-05-2022 Cognitive function Voice/Name [facility] Work Phone: 01-24-2022 Cognitive function Voice/Name [facility] Work Phone: 11-17-2021 Cognitive function Level Of Cons ciousness Awake;Alert;Appropriate [facility] Work Phone: 11-06-2021 Cognitive function Voice/Name [facility] Work Phone: 09-16-2021 Cognitive function Level Of Cons ciousness Awake;Alert;Appropriate;Follow s Commands [facility] Work Phone: 09-14-2021 Cognitive function Voice/Name [facility] Work Phone: 09-08-2021 Cognitive function Voice/Name [facility] Work Phone: 07-17-2021 Cognitive function Demonstrates ability to follow instructions/comprehend [facility] Work Phone: 07-17-2021 Cognitive function Level Of Cons ciousness Awake;Alert;Appropriate;Follow s Commands [facility] Work Phone: 06-07-2021 Cognitive function Voice/Name [facility] Work Phone: 06-04-2021 Cognitive function Voice/Name [facility] Work Phone: 05-25-2021 Cognitive function Voice/Name [facility] Work Phone: 05-20-2021 Cognitive function Voice/Name [facility] Work Phone: 05-19-2021 Cognitive function Memory Description Int act [facility] Work Phone: Clinical Notes 05-19-2021 to 11-30-2024 Note Date & Type Note Facility 11-30-2024 Radiology Diagnostic study note [facility] 10-15-2024 Radiology Diagnostic study note [facility] Imaging Services [address] [place] [address] Chest 1 View (Portable) MR#: [id number] Acct: [id number] Name: PITO HENDRIX Rep #: [id number] : 1970 F 53 From: Nathan Joy MD PCP: Dr. Margo Tatum DO Status: REG ER Study:Chest 1 View (Portable) Date of Exam: 10/15/24 Exam# [id number] Ordering Dr: Provider ,Ed P. PROCEDURE: CHEST 1 VIEW (PORTABLE) 10/15/2024 REASON FOR EXAM: CHEST PAIN TECHNIQUE: Frontal view of the chest. COMPARISON: Comparison is made with prior study dated September 09, 2024. FINDINGS: Hardware: EKG electrodes are seen. A left-sided dual-chamber pacemaker device is visualized. Heart: Heart size is mildly enlarged. Lungs: The lungs are clear. Bones: Degenerative changes are identified within the thoracic spine. Other: RAD/Chest 1 View (Portable) IMPRESSION: Mild cardiomegaly. The lungs are clear. Reading Location: [id number] CC: Dr. Margo Tatum DO; ED PHYSICIAN PROVIDER ~ Imaging Scheduler: Signed [facility] 09-24-2024 Radiology Diagnostic study note [facility] Imaging Services [address] [place] [address] Thyroid MR#: [id number] Acct: [id number] Name: AMBERPITO Rep #: [id number] : 1970 F 53 From: Nathan Joy MD PCP: Dr. Margo Tatum DO Status: REG CLI Study:Thyroid Date of Exam: 09/24/24 Exam# [id number] Ordering Dr: Mike Tom PROCEDURE: THYROID 09/24/2024 REASON FOR EXAM: THYROID NODULE TECHNIQUE: Thyroid ultrasound COMPARISON: Comparison is made with prior study dated January 05, 2024. FINDINGS: Right thyroid lobe measures 5.9 cm x 1.9 cm x 1.6 cm. Left thyroid lobe measures 6.2 cm x 1.8 cm x 1.8 cm. Isthmus thickness is5.8 mm. Thyroid Size: Diffusely enlarged Background Echotexture: Heterogeneous Thyroid Nodules: Stable 2.1 cm x 1.5 cm 1.1 cm complex solid and cystic nodule with increased vascularity in the right lobe. Stable dominant 2.5 cm x 1.9 cm x 1.8 cm complex nodule in the midportion of theleft lobe with increased vascularity. Stable 1.2 cm x 0.7 cm x 0.7 cm solid nodule in the upper pole of the left lobe with vascularity. There has been essentially no change. Other: US/Thyroid IMPRESSION: OVERALL FINAL ASSESSMENT: TI-RADS 3: Probably benign nodules (<5% risk). Enlarged thyroid gland with heterogeneous echotexture. Stable bilateral thyroid nodules. Reading Location: [place] [address] CC: CARMEN Tom; Dr. Margo Tautm DO; Dr. Edward Hancock MD ~ Imaging Scheduler: Signed [facility] 09-11-2024 Discharge summary [facility] 09-11-2024 Note [facility] 09-10-2024 Progress note Note Date/Time September 10, 2024 11:57am [facility] Medical Records Department [address] [place] [address] Progress Note - Hospitalist 09/10/24 0937 MR#: [id number] Acct: [id number] Name: PITO HENDRIX Rep #:[id number] : 1970 53 From: Jamie nolasco DO PCP: Dr. Margo Malys, DO Status:ADM IN Location: [facility] [id number] Reason for Visit Reason for Visit: Diagnoses Heart failure, unspecified (09/09/24) Hypoxemia (09/09/24) Subjective Subjective Saw patient at bedside this morning. Patient was mildly anxious appearing but otherwise sitting up comfortably in bedside chair, conversing normally, in no acute distress. She was breathing comfortably on 2 L nasal cannula at rest. Noted that her shortness of breath feels mild to moderately improved today from yesterday. Has had mild improvement with breathing treatments. Does not reportsignificant urine output to this point. No other acute concerns at this time. Objective Data Objective Data Vital Signs: Vital Signs Temp Pulse Resp BP Pulse Ox O2 Del Method O2 Flow Rate 97.5 F L 89 22 H 135/84 H 100 Nasal Cannula 2 09/10/24 08:54 09/10/24 08:54 09/10/24 08:54 09/10/24 08:54 09/10/24 08:54 09/10/24 08:54 09/10/24 08:54 Oxygen Flow Rate (L/min) 2 Oxygen Delivery Method Nasal Cannula Weight: 93.1 kg Body Mass Index (BMI) 35.2 Intake & Output: Intake and Output for Last 24 Hours 09/08/24 09/09/24 09/10/24 23:59 23:59 23:59 Output Total 400 / 400 Balance -400 / -400 Lab / Micro Data 09/10/24 05:16 09/10/24 05:16 Labs: Laboratory Results - last 24 hr 09/09/24 16:07: WBC 6.2, RBC 4.44, Hgb 13.5, Hct 39.9, MCV 89.9, MCH 30.4, MCHC 33.8, RDW Std Deviation 42.7, RDW Coeff of Tomi 13.0, Plt Count 180, MPV 10.2, Immature Gran % (Auto) 0.200, Neut % (Auto) 69.4, Lymph % (Auto) 25.2, [place] % (Auto) 3.9, Eos % (Auto) 1.0, Baso % (Auto) 0.3, Absolute Neuts (auto) 4.3, Absolute Lymphs (auto) 1.55, Nucleated RBC % 0, D-Dimer Quant (PE/DVT) 1.06 H*, Sodium 138, Potassium 4.0, Chloride 108, Carbon Dioxide 17.7 L, Anion Gap 12, BUN 18, Creatinine 0.78, Estim Creat Clear Calc 92.93, Est GFR (MDRD) Non-Af 91,BUN/Creatinine Ratio 22.7 H, Glucose 198 H, Calcium 9.0, NT pro BNP II 2124 H 09/09/24 21:47: POC Glucose 282 H 09/10/24 05:16: WBC 8.7, RBC 4.55, Hgb 13.7, Hct 40.6, MCV 89.2, MCH 30.1, MCHC 33.7, RDW Std Deviation 42.5, RDW Coeff of Tomi 13.0, Plt Count 196, MPV 10.7, Immature Gran % (Auto) 0.500, Neut % (Auto) 87.6 H, Lymph % (Auto) 10.4 L, [place] % (Auto) 1.4, Eos % (Auto) 0.0, Baso % (Auto) 0.1, Absolute Neuts (auto) 7.6, Absolute Lymphs (auto) 0.90, Nucleated RBC % 0, Sodium 137, Potassium 3.4, Chloride 103, Carbon Dioxide 17.8 L, Anion Gap 16 H, BUN 23 H, Creatinine 0.82, Estim Creat Clear Calc 86.74, Est GFR (MDRD) Non-Af 85, BUN/Creatinine Ratio 28.5 H, Glucose 315 H, Hemoglobin A1c 9.4, Calcium 9.1 09/10/24 06:21: POC Glucose 292 H Radiography Diagnostic Testing: Radiology Impression Chest X-Ray 09/09/24 16:15 IMPRESSION: Suspect subtle pneumonia in the lower lobes. Reading Location: [facility] Chest CTA 09/09/24 16:42 IMPRESSION: NORMAL CHEST CTA. NO EVIDENCE OF ACUTE PULMONARY EMBOLISM. Patchy bilateral airspace opacities, concerning for infiltrates. Small bilateral pleural effusion with atelectasis. Ill-defined low attenuating lesion of the thyroid gland, please correlate with ultrasound. Reading [facility] Physical Exam Const alert, oriented x3 and no apparent distress Constitutional Narrative: Middle-aged female, class II obesity, mildly anxious appearing but otherwise sitting up comfortably in bedside chair, conversing normally, in no acute distress. General Appearance: cooperative and comfortable HEENT normocephalic, head/scalp atraumatic, hearing grossly normal bilaterally, nasal mucous membranes and turbinates normal and moist oral mucous membranes Eyes PERRL, EOMs intact bilaterally and conjunctivae normal Neck full ROM Chest inspection of chest normal Resp normal respiratory effort and no use of accessory muscles Resp Narrative: Breathing comfortably on 2 L nasal cannula at rest. Good breath sounds bilaterally throughout with only mild crackles noted, no wheezing noted. Cardio regular rate, regular rhythm, no murmurs and peripheral pulses 2+ throughout GI normal to inspection, nondistended, normoactive bowel sounds, soft to palpation,non-tender and non-distended Back/Spine normal ROM Extremity normal to inspection, full ROM and no pedal edema Skin no rashes or lesions noted Psych mental status grossly normal Mood & Affect: anxious Assessment & Plan Assessment/Plan (1) Hypoxia: (2) Congestive heart failure (CHF): PLAN: Plan Patient is a 53-year-old female who presented to [facility] ED on 09/09/2024 with shortness of breath. 1. Acute hypoxia secondary to mild acute HFpEF and concern for COPD exacerbation ? Not on home oxygen. Presented with acute onset shortness of breath with hypoxia. Was afebrile, no leukocytosis and otherwise hemodynamically stable. CTA chest showed no PE, did show patchy bilateral airspace opacities concerning for infiltrates and small bilateral pleural effusions with atelectasis. BNP 2124. Last echo on 01/20/2024 showed EF 50 to 55%, no diastolic dysfunction, no valve abnormalities. Patient also had diagnostic cath done then that showed mild nonobstructive CAD with widely patent prior stent. COVID/flu/RSV and respiratory PCR panel pending. Will continue treatment with IV steroids, scheduled DuoNebs and IV Lasix 40 mg twice daily for today. Patient satting in the high 90s on 2 L nasal cannula, will plan to de-escalate to p.o. steroids andp.o. Lasix tomorrow in preparation for likely discharge home. 2. Type 2 diabetes mellitus ? Follows with endocrinology, last office visit in June. A1c 8.4% then, significantly improved from 12.4% in March. A1c 9.2% on this admit. Will continue home Lantus 40 units daily and treat with slightly reduced dose of Humalog 15 units with meals plus high?medium sliding scale insulin, adjust as needed. Holding home dapagliflozin, Trulicity and glipizide. Chronic medical conditions: ? Class II obesity: BMI 35 on admit. Complicated hospital course, care and prognosis. Encouraged weight loss. ? History of CAD with stenting, history of ischemic cardiomyopathy, hypertension, hyperlipidemia: Recent cardiac workup as noted above. Treated with IV Lasix as noted above. Continue home statin, Coreg, Plavix, Imdur, Entresto and spironolactone. ? Paroxysmal A-fib, history of LBBB s/p CRTT-D placement, history of VTE: Stable in normal sinus rhythm on admit. Continue home Coreg and Eliquis. ? Hyperthyroidism, history of thyroid nodules: Thyroid nodule noted on CTA [place] admit and had biopsy done recently with inconclusive pathology. Per endocrinology note, recommendation is that she follow-up with Dr. Hancock but she has not called to make an appointment yet. Continue home methimazole. Continueoutpatient follow-up. ? GERD: Continue home PPI. DVT prophylaxis: Not indicated, on Eliquis CODE STATUS: Full code, verified Expected disposition: Home, 1 to 2 days Total clinical time spent by myself addressing the patient's medical issues, reviewing all the data, and collaborating with patient's care team: 35 minutes. Charges/Coding Visit Charges Inpatient E&M: 09097 Subs Hosp L2 09/10/24 115 <Electronically signed by Jamie Manrique DO> Cosigner Signature (if applicable): CC: ~ Signed [facility] Work Phone: 1(793) 667-284104-07-2025 Progress note [facility] Medical Records Department [address] [place] [address] Progress Note - Hospitalist 09/10/24 0937 MR#: [id number] Acct: [id number] Name: PITO HENDRIX KAYLIN Rep #:[id number] : 1970 53 From: Jamie nolasco DO PCP: Dr. Margo Tatum DO Status:ADM IN Location: [place] [address] Reason for Visit Reason for Visit: Diagnoses Heart failure, unspecified (09/09/24) Hypoxemia (09/09/24) Subjective Subjective Saw patient at bedside this morning. Patient was mildly anxious appearing but otherwise sitting up comfortably in bedside chair, conversing normally, in no acute distress. She was breathing comfortably on 2 L nasal cannula at rest. Noted that her shortness of breath feels mild to moderately improved today from yesterday. Has had mild improvement with breathing treatments. Does not reportsignificant urine output to this point. No other acute concerns at this time. Objective Data Objective Data Vital Signs: Vital Signs Temp Pulse Resp BP Pulse Ox O2 Del Method O2 Flow Rate 97.5 F L 89 22 H 135/84 H 100 Nasal Cannula 2 09/10/24 08:54 09/10/24 08:54 09/10/24 08:54 09/10/24 08:54 09/10/24 08:54 09/10/24 08:54 09/10/24 08:54 Oxygen Flow Rate (L/min) 2 Oxygen Delivery Method Nasal Cannula Weight: 93.1 kg Body Mass Index (BMI) 35.2 Intake & Output: Intake and Output for Last 24 Hours 09/08/24 09/09/24 09/10/24 23:59 23:59 23:59 Output Total 400 / 400 Balance -400 / -400 Lab / Micro Data 09/10/24 05:16 09/10/24 05:16 Labs: Laboratory Results - last 24 hr 09/09/24 16:07: WBC 6.2, RBC 4.44, Hgb 13.5, Hct 39.9, MCV 89.9, MCH 30.4, MCHC 33.8, RDW Std Deviation 42.7, RDW Coeff of Tomi 13.0, Plt Count 180, MPV 10.2, Immature Gran % (Auto) 0.200, Neut % (Auto) 69.4, Lymph % (Auto) 25.2, [place] % (Auto) 3.9, Eos % (Auto) 1.0, Baso % (Auto) 0.3, Absolute Neuts(auto) 4.3, Absolute Lymphs (auto) 1.55, Nucleated RBC % 0, D-Dimer Quant (PE/DVT) 1.06 H*, Sodium 138, Potassium 4.0, Chloride 108, Carbon Dioxide 17.7 L, Anion Gap 12, BUN 18, Creatinine 0.78, Estim Creat Clear Calc 92.93, Est GFR (MDRD) Non-Af 91,BUN/Creatinine Ratio 22.7 H, Glucose 198 H, Calcium 9.0, NT pro BNP II 2124 H 09/09/24 21:47: POC Glucose 282 H 09/10/24 05:16: WBC 8.7, RBC 4.55, Hgb 13.7, Hct 40.6, MCV 89.2, MCH 30.1, MCHC 33.7, RDW Std Deviation 42.5, RDW Coeff of Tomi 13.0, Plt Count 196, MPV 10.7, Immature Gran % (Auto) 0.500, Neut % (Auto) 87.6 H, Lymph % (Auto) 10.4 L, [place] % (Auto) 1.4, Eos % (Auto) 0.0, Baso % (Auto) 0.1, Absolute Neuts (auto) 7.6, Absolute Lymphs (auto) 0.90, Nucleated RBC % 0, Sodium 137, Potassium 3.4, [id number], Carbon Dioxide 17.8 L, Anion Gap 16 H, BUN 23 H, Creatinine 0.82, Estim Creat Clear Calc 86.74, Est GFR (MDRD) Non-Af 85, BUN/Creatinine Ratio 28.5 H, Glucose 315 H, Hemoglobin A1c 9.4, Calcium 9.1 09/10/24 06:21: POC Glucose 292 H Radiography Diagnostic Testing: Radiology Impression Chest X-Ray 09/09/24 16:15 IMPRESSION: Suspect subtle pneumonia in the lower lobes. Reading Location: [facility] Chest CTA 09/09/24 16:42 IMPRESSION: NORMAL CHEST CTA. NO EVIDENCE OF ACUTE PULMONARY EMBOLISM. Patchy bilateral airspace opacities, concerning for infiltrates. Small bilateral pleural effusion with atelectasis. Ill-defined low attenuating lesion of the thyroid gland, please correlate with ultrasound. Reading Location: [facility] Physical Exam Const alert, oriented x3 and no apparent distress Constitutional Narrative: Middle-aged female, class II obesity, mildly anxious appearing but otherwise sitting up comfortablyin bedside chair, conversing normally, in no acute distress. General Appearance: cooperative and comfortable HEENT normocephalic, head/scalp atraumatic, hearing grossly normal bilaterally, nasal mucous membranes and turbinates normal and moist oral mucous membranes Eyes PERRL, EOMs intact bilaterally and conjunctivae normal Neck full ROM Chest inspection of chest normal Resp normal respiratory effort and no use of accessory muscles Resp Narrative: Breathing comfortably on 2 L nasal cannula at rest. Good breath sounds bilaterally throughout with only mild crackles noted, no wheezing noted. Cardio regular rate, regular rhythm, no murmurs and peripheral pulses 2+ throughout GI normal to inspection, nondistended, normoactive bowel sounds, soft to palpation,non-tender and non-distended Back/Spine normal ROM Extremity normal to inspection, full ROM and no pedal edema Skin no rashes or lesions noted Psych mental status grossly normal Mood & Affect: anxious Assessment & Plan Assessment/Plan (1) Hypoxia: (2) Congestive heart failure (CHF): PLAN: Plan Patient is a 53-year-old female who presented to [facility] ED on 09/09/2024 with shortness of breath. 1. Acute hypoxia secondary to mild acute HFpEF and concern for COPD exacerbation ? Not on home oxygen. Presented with acute onset shortness of breath with hypoxia. Was afebrile, noleukocytosis and otherwise hemodynamically stable. CTA chest showed no PE, did show patchy bilateral airspace opacities concerning for infiltrates and small bilateral pleural effusions with atelectasis. BNP 2124. Last echo on 01/20/2024 showed EF 50 to 55%, no diastolic dysfunction, no valve abnormalities. Patient also had diagnostic cath done then that showed mild nonobstructive CAD with widely patent prior stent. COVID/flu/RSV and respiratory PCR panel pending. Will continue treatment with IV steroids, scheduled DuoNebs and IV Lasix 40 mg twice daily for today. Patient satting in the high 90s on 2 L nasal cannula, will plan to de-escalate to p.o. steroids andp.o. Lasix tomorrow in preparation for likely discharge home. 2. Type 2 diabetes mellitus ? Follows with endocrinology, last office visit in June. A1c 8.4% then, significantly improved from 12.4% in March. A1c 9.2% on this admit. Will continue home Lantus 40 units daily and treat with slightly reduced dose of Humalog 15 units with meals plus high?medium sliding scale insulin, adjust as needed. Holding home dapagliflozin, Trulicity and glipizide. Chronic medical conditions: ? Class II obesity: BMI 35 on admit. Complicated hospital course, care and prognosis. Encouraged weight loss. ? History of CAD with stenting, history of ischemic cardiomyopathy, hypertension, hyperlipidemia: Recent cardiac workup as noted above. Treated with IV Lasix as noted above. Continue home statin, Coreg, Plavix, Imdur, Entresto and spironolactone. ? Paroxysmal A-fib, history of LBBB s/p CRTT-D placement, history of VTE: Stable in normal sinus rhythm on admit. Continue home Coreg and Eliquis. ? Hyperthyroidism, history of thyroid nodules: Thyroid nodule noted on CTA [place] admit and had biopsy done recently with inconclusive pathology. Per endocrinology note, recommendation is that she follow-up with Dr. Hancock but she has not called to make an appointment yet. Continue home methimazole. Continueoutpatient follow-up. ? GERD: Continue home PPI. DVT prophylaxis: Not indicated, on Eliquis CODE STATUS: Full code, verified Expected disposition: Home, 1 to 2 days Total clinical time spent by myself addressing the patient's medical issues, reviewing all the data, and collaborating with patient's care team: 35 minutes. Charges/Coding Visit Charges Inpatient E&M: 66420 Subs Hosp L2 09/10/24 1153 Cosigner Signature (if applicable): CC: ~ Signed [facility]04-06-2025 Evaluation note* Diagnosis Onset Date Resolution Status Admit Date Congestive heart failure (CHF) resol syeda September 09, 2024 8:17pm Dyspnea resolved September 09 8:17pm Elevated d-dimer resolved September 8:17pm Hypoxia resolved September 09 8:17pm Chronic anticoagulation inactive A pril 2024 8:17pm Pacemaker inactive September 09 8:17pm Benign hypertension chronic September 12, 2024 2:41pm Hyperlipidemia chronic September 12, 2024 2:41pm Hyperthyroidism chronic September 2:41pm Multiple thyroid nodules chronic September 12, 2024 2:41pm Obesity chronic September 12 2:41pm Uncontrolled type 2 diabetes mellitus chronic September 12, 2024 2:41pm Congestive heart failure (CHF) resol syeda September 12, 2024 2:41pm [facility] Work Phone: 1(385) 378-959704-06-2025 Evaluation note* Diagnosis Onset Date Resolution Status Admit Date Congestive heart failure (CHF) resol syeda September 09, 2024 8:17pm Dyspnea resolved September 09 8:17pm Elevated d-dimer resolved September 8:17pm Hypoxia resolved September 09 8:17pm Chronic anticoagulation inactive A pril 2024 8:17pm Pacemaker inactive September 09 8:17pm Benign hypertension chronic September 12, 2024 2:41pm Hyperlipidemia chronic September 12, 2024 2:41pm Hyperthyroidism chronic September 2:41pm Multiple thyroid nodules chronic September 12, 2024 2:41pm Obesity chronic September 12 2:41pm Uncontrolled type 2 diabetes mellitus chronic September 12, 2024 2:41pm Congestive heart failure (CHF) resol syeda September 12, 2024 2:41pm Benign hypertension chronic November 07, 2024 2:31pm Hyperlipidemia chronic November 07, 2024 2:31pm Hyperthyroidism chronic November 07, 2024 2:31pm Multiple thyroid nodules chronic November 07, 2024 2:31pm Obesity chronic November 07, 2024 2:31pm Uncontrolled type 2 diabetes mellitus chronic November 07, 2024 2 :31pm Vitamin D insufficiency chronic 2024 2:31pm [facility] Work Phone: 1(123) 498-471204-06-2025 Evaluation note* Diagnosis Onset Date Resolution Status Admit Date Congestive heart failure (CHF) resol syeda September 09, 2024 8:17pm Dyspnea resolved September 09 8:17pm Elevated d-dimer resolved September 8:17pm Hypoxia resolved September 09 8:17pm Chronic anticoagulation inactive A pril 2024 8:17pm Pacemaker inactive September 09 8:17pm Benign hypertension chronic September 12, 2024 2:41pm Hyperlipidemia chronic September 12, 2024 2:41pm Hyperthyroidism chronic September 2:41pm Multiple thyroid nodules chronic September 12, 2024 2:41pm Obesity chronic September 12 2:41pm Uncontrolled type 2 diabetes mellitus chronic September 12, 2024 2:41pm Congestive heart failure (CHF) resol syeda September 12, 2024 2:41pm Benign hypertension chronic November 07, 2024 2:31pm Hyperlipidemia chronic November 07, 2024 2:31pm Hyperthyroidism chronic November 07, 2024 2:31pm Multiple thyroid nodules chronic November 07, 2024 2:31pm Obesity chronic November 07, 2024 2:31pm Uncontrolled type 2 diabetes mellitus chronic November 07, 2024 2 :31pm Vitamin D insufficiency chronic J 2024 2:31pm Shortness of breath acute November 30, 2024 7:04pm [facility] Work Phone: 1(780) 317-828104-06-2025 History and physical note Author Francine [facility] Note Date/Time September 09, 2024 8:17 pm [facility] Medical Records Department [address] [place] [address] H&P Exam - Hospitalist 09/09/24 1802 MR#: [id number] Acct: [id number] Name: PITO HENDRIX Rep #:[id number] : 1970 53 From: Francine Steele MD PCP: Dr. Margo Tatum, DO Status:ADM IN Location: [place] [address] HPI - General General Date of Admission: 09/09/24 Date of Service: 09/09/24 Chief Complaint: shortness of breath HPI Narrative PITO HENDRIX, is a 53 F with a PMH as outlined who presents via the ED on 09/09/2024 with a complaitn of shortness of breath which started today. She deniedany fever, productive cough or wheezing. She denied any palpitations, dizziness,nausea, vomiting or any other symptoms. REview of systems was otherwise negative. Vitals in the ED were BP of 135/97, pulse rate of 99, respiratory rate of 27 andtemp of 98.1 Fahrenheit. She was saturating 99% on 2 L of oxygen. CBC showed WBC of 6.2 and hemoglobin of 13.5 with platelets of 180. CHemistry was sodium of138, potassium of 4, bicarb of 17.7 and anion gap of 12. Cr was 0.78. ProBNP [id number]. D dimer was 1.06. CHest xray showed suspect subtle pneumonia in the lower lobes and CT of the chest was negative for any evidence of PE and showed patchy bilateral airspace opacities concerning for infiltrates and small bilateral pleural effusion with atelecdtasis, as well as ill defined low attenuating lesion of hte thyroid gland. She is being admitted to be managed for hypoxia dueto acute exacerbation of heart failure. [facility] Medical History Obesity Angina pectoris TRAE (acute kidney injury) Hypokalemia Hyperglycemia History of COPD History of IA (myocardial infarction) Cardiomyopathy, ischemic Type 2 diabetes mellitus Antiplatelet or antithrombotic long-term use Anticoagulant long-term use Presence of cardiac 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 therapy defibrillator (CRTT-D) Diabetes Atrial fibrillation Coronary artery disease Hypertension Paroxysmal atrial fibrillation Hyperthyroidism Vomiting Hirsutism Chronic nausea Non-ST elevation (NSTEMI) myocardial infarction Difficult intubation Syncope Thyroid nodule Kidney stones Former smoker COPD (chronic obstructive pulmonary disease) Irregular heart beat Myocardial infarct Seizures COVID-19 virus infection Atherosclerotic heart disease of [place] coronary artery without angina pectoris HFrEF (heart failure with reduced ejection fraction) Left bundle branch block (LBBB) Non-ischemic cardiomyopathy History of non-ST elevation myocardial infarction (NSTEMI) (09/08/21) Hyperglycemia due to type 2 diabetes mellitus Chronic low back pain Hyperlipidemia Benign hypertension Home Medications ?Medication ?Instructions ?Recorded ?Last Taken ?Type BD Ultra-Fine [place] Pen Needle 32 #100 ea 07/29/22 Unkn own Rx gauge x 5/32 (pen needle, diabetic) diphenhydramine HCl 25 mg tablet 25 mg PO Q4H PRN PRN Allergy 08/06/22 Unknown History Symptoms hydrocodone-acetaminophen 5-325mg 1 tab PO Q8H PRN ross n 08/06/22 01/18/24 History 5mg-325mg naloxegol 25 mg tablet (Movantik) 25 mg PO QAM PRN ross n 08/06/22 Unknown History omeprazole magnesium 20 mg 20 mg PO DAILY reflux 08/0601/19/24 History tablet,delayed release (Prilosec OTC) promethazine 25 mg tablet 25 mg PO TID PRN PRN Nausea And 08/06/22 Unknown History Vomiting tizanidine 4 mg tablet 4 mg PO QHS muscle spasms 01/18/24 History cholecalciferol (vitamin D3) 50 1,000 unit PO DAILY vi tamin 03/08/23 01/19/24 History mcg (2,000 unit) capsule clopidogrel 75 mg tablet (Plavix) 75 mg PO DAILY anti platelet #90 05/16/23 01/19/24 Rx tabs atorvastatin 80 mg tablet See Rx Instructions .Route 0 06/09/23 Unknown Rx .COMPLEX cholesterol #360 TABLETS isosorbide mononitrate 30 mg See Rx Instructions .Rout e 06/09/23 01/19/24 Rx tablet,extended release 24 hr .COMPLEX heart #360 TABL ETS furosemide 20 mg tablet (Lasix) 20 mg PO DAILY diureti c 30 days 09/10/23 01/19/24 Rx #30 tabs blood-glucose meter,continuous #1 ea 10/10/23 Unknown Rx (Dexcom G7 Metal Finisher) apixaban 5 mg tablet (Eliquis) See Rx Instructions .Ro [place] 12/13/23 Unknown Rx .COMPLEX blood thinner #180 tabs dapagliflozin propanediol 10 mg 10 mg PO DAILY diabete s 12/13/23 01/19/24 History tablet (Farxiga) melatonin 10 mg capsule 10 mg PO HS PRN insomnia 02/27 Unknown History sacubitril 97 mg-valsartan 103 mg 1 tab PO BID heart # 180 tabs 12/13/23 01/19/24 Rx tablet (Entresto) carvedilol 25 mg tablet 25 mg PO BID blood pressure #180 12/29/23 Unknown Rx tabs spironolactone 50 mg tablet 50 mg PO DAILY #90 TABLETS 03/20/24 Unknown Rx Dexcom G7 Sensor (blood-glucose #3 ea 04/04/24 Unknown Rx sensor) insulin glargine 100 unit/mL (3 40 unit (0.4 mL) subcu t DAILY 04/04/24 Unknown Rx mL) subcutaneous pen (Lantus diabetes #36 mL Solostar U-100 Insulin) dulaglutide 1.5 mg/0.5 mL 1.5 mg (0.5 mL) subcut QWEEK #2 mL 06/13/24 Unknown Rx subcutaneous pen injector (Trulicity) glipizide 10 mg tablet 10 mg PO BID #180 tabs 06/13 Unknown Rx insulin aspart 20 unit subcut TID #15 mL Unknown Rx (niacinamide)(U-100) 100 unit/mL(3 mL) subcutaneous pen (Fiasp FlexTouch U-100 Insulin) insulin lispro 100 unit/mL 20 unit (0.2 mL) subcut TID #15 mL 06/14/24 Unknown Rx subcutaneous pen (Humalog KwikPen (U-100) Insulin) methimazole 10 mg tablet 10 mg PO DAILY thyroid #90 t abs 07/10/24 Unknown Rx Allergy/AdvReac Type Severity Reaction Status Date / Time amoxicillin trihydrate (From AdvReac Vomiting Verified 09/09/24 15:47 Augmentin) potassium clavulanate (From AdvReac Vomiting Verified 09/09/24 15:47 Augmentin) Family History Father Myocardial infarction Cancer prostate, leukemia Agent orange exposure Diabetes Sister Diabetes COPD (chronic obstructive pulmonary disease) Mother CVA (cerebral vascular accident) Hypertension Surgical History History of bladder surgery (~09/2023) History of cholecystectomy History of appendectomy History of coronary artery stent placement (05/19/21) Status post insertion of nerve stimulator History of laparoscopy History of tonsillectomy History of cholecystectomy (1991) History of hysterectomy History of left heart catheterization (09/14/21) History of back surgery Social History household members: significant other current occupational status: employed Smoking Status: Former smoker how long ago did patient quit smoking: Quit 1990, smoke 2 ppd since teen until quit. alcohol intake: current alcohol intake frequency: holidays/special occasions only substance use type: does not use caffeine: Yes ROS Review of Systems ROS Unobtainable: Denies due to encephalopathy Constitutional Constitutional: Reports fatigue, malaise and weakness; Denies anorexia, chills or fever(s) Eyes Eyes: Denies change in vision ENT HEENT: Denies dysphagia, headache(s) or sore throat Cardiovascular Cardiovascular: Reports dyspnea on exertion; Denies chest pain, edema, lightheadedness or orthopnea Respiratory/Chest Respiratory/Chest: Reports dyspnea, shortness of breath at rest and shortness ofbreath with exertion; Denies cough, excessive phlegm production, hemoptysis, productive cough or wheezing Gastrointestinal Gastrointestinal: Denies abdominal pain, constipation, diarrhea, nausea or vomiting Genitourinary Genitourinary: Denies dysuria Neurologic Neurologic: Denies confusion, dizziness, focal weakness, headache(s), seizure- like activity, seizures, syncope or tremor(s) Psychiatric Psychiatric: Denies anxiety or depression Vital Signs Vital Signs Vital Signs: 09/09/24 15:48 09/09/24 15:59 09/09/24 16:00 Temperature 98.1 F Temperature Source Oral Pulse Rate 102 H Respiratory Rate 24 H Respiratory Effort Short of Breath Labored Respiratory Pattern Tachypnea Blood Pressure 134/95 H Blood Pressure Mean 108 Pulse Ox 100 97 Oxygen Delivery Method Room Air Room Air Room Air Oxygen Flow Rate (L/min) 09/09/24 16:11 09/09/24 16:46 09/09/24 16:50 Temperature 98.1 F Temperature Source Oral Pulse Rate 97 96 97 Respiratory Rate 20 H 25 H 24 H Respiratory Effort Respiratory Pattern Tachypnea Blood Pressure 144/101 H 144/101 H Blood Pressure Mean 114 115 Pulse Ox 100 100 Oxygen Delivery Method Nasal Cannula Oxygen Flow Rate (L/min) 2 09/09/24 17:00 Temperature 98.1 F Temperature Source Oral Pulse Rate 99 Respiratory Rate 27 H Respiratory Effort Respiratory Pattern Blood Pressure 135/97 H Blood Pressure Mean 109 Pulse Ox 99 Oxygen Delivery Method Nasal Cannula Oxygen Flow Rate (L/min) 2 Weight Weight: 212 lb 9.6 oz Body Mass Index (BMI) 36.5 Physical Exam Const alert, oriented x3, no apparent distress and average body habitus General Appearance: cooperative HEENT normocephalic, head/scalp atraumatic, moist oral mucous membranes and oropharynxnormal Eyes PERRL, EOMs intact bilaterally and conjunctivae normal Neck no lymphadenopathy and supple Resp Resp Narrative: Mildly diminished breath sounds bibasilarly. BIlateral wheezing and Mild crackles. On 2 L of oxygen by nasal cannula. Tachypneic Cardio regular rhythm, S1 normal heart sound, S2 normal heart sound and no murmurs Cardio Narrative: tachycardic GI normal to inspection, nondistended, normoactive bowel sounds, soft to palpation and non-tender Extremity normal to inspection, full ROM and no clubbing, cyanosis or edema Neuro oriented x3, CN's II-XII intact bilaterally, moves all extremities and no focal motor deficits Sensorium / Orientation: awake Motor Exam: strength 5/5 throughout Psych affect normal Results Lab / Micro Data 09/09/24 16:07 09/09/24 16:07 Labs: Laboratory Results - last 24 hr 09/09/24 16:07: WBC 6.2, RBC 4.44, Hgb 13.5, Hct 39.9, MCV 89.9, MCH 30.4, MCHC 33.8, RDW Std Deviation 42.7, RDW Coeff of Tomi 13.0, Plt Count 180, MPV 10.2, Immature Gran % (Auto) 0.200, Neut % (Auto) 69.4, Lymph % (Auto) 25.2, [place] % (Auto) 3.9, Eos % (Auto) 1.0, Baso % (Auto) 0.3, Absolute Neuts (auto) 4.3, Absolute Lymphs (auto) 1.55, Nucleated RBC % 0, D-Dimer Quant (PE/DVT) 1.06 H*, Sodium 138, Potassium 4.0, Chloride 108, Carbon Dioxide 17.7 L, Anion Gap 12, BUN 18, Creatinine 0.78, Estim Creat Clear Calc 92.93, Est GFR (MDRD) Non-Af 91,BUN/Creatinine Ratio 22.7 H, Glucose 198 H, Calcium 9.0, NT pro BNP II 2124 H Imaging Radiology Impression Chest X-Ray 09/09/24 16:15 IMPRESSION: Suspect subtle pneumonia in the lower lobes. Reading Location: [facility] Chest CTA 09/09/24 16:42 IMPRESSION: NORMAL CHEST CTA. NO EVIDENCE OF ACUTE PULMONARY EMBOLISM. Patchy bilateral airspace opacities, concerning for infiltrates. Small bilateral pleural effusion with atelectasis. Ill-defined low attenuating lesion of the thyroid gland, please correlate with ultrasound. [facility] Assessment & Plan Assessment/Plan (1) Congestive heart failure (CHF): (2) Hypoxia: PLAN: Plan #Hypoxia due to acute exacerbation of heart failure and COPD exacaerbation * Admit to PCU * Admitted with a complaint of shortness of breath. D-dimer was elevated. CT of the chest was negative for PE but did show patchy bilateral airspace opacities concerning for infiltrate and small bilateral pleural effusions. She has not had a fever and does not have a productive cough so I think this is likely due to the heart failure as her BNP is elevated. * Will diurese with IV Lasix 40 mg twice daily. Currently on 2 L of oxygen. Titrate oxygen to maintain saturation above 90%. Breathing treatments with bronchodilators. * Order 2D echo. * On carvedilol. Will continue. Also on Farxiga. * On Entresto and spironolactone. Will continue these. * will also place on IV solumedrol for COPD exacerbaiton * Previous echo from February 2024 showed EF of 50 to 55% with no evidence of diastolic dysfunction no regional wall motion abnormalities noted with normal RV size and ICD with pacer leads noted within the right ventricle #Type 2 diabetes mellitus: * On Farxiga and dulaglutide as well as Lantus 40 units daily. Insulin sliding scale. Accuhecks ACHS. Also on glipizide. #Benign essential hypertension: On carvedilol #CAD: On high intensity statin and Plavix as well as carvedilol and Imdur. #History of PE: On Eliquis #History of hypothyroidism: On methimazole #History of paroxysmal A-fib: On carvedilol and Eliquis #Hyperlipidemia: On statin #DVT prophylaxis: Already anticoagulated on Eliquis #CODE STATUS * Patient counseled extensively about different types of CODE STATUS including full code, DNR CCA and DNR CCA. Patient elects to be full code. * Total dcyh-ft-chph time 17 minutes. Charges/Coding Visit Charges Inpatient E&M: 13326 Init Hosp L3 Procedures Hospitalists Procedures: 08613 Advncd Care Plan 30 Min 09/09/242016 <Electronically signed by Francine Steele MD> Cosigner Signature (if applicable): CC: Dr. Margo Tatum DO; Dr. Francine Steele MD~ Signed [facility] Work Phone: [phone] History and physical note [facility] Medical Records Department [address] [place] [id number] H&P Exam - Hospitalist 09/09/24 1802 MR#: [id number] Acct: [id number] Name: PITO HENDRIX Rep #:[id number] : 1970 53 From: Francine Steele MD PCP: Dr. Margo Tatum, DO Status:ADM IN Location: [facility] [id number] HPI - General General Date of Admission: 09/09/24 Date of Service: 09/09/24 Chief Complaint: shortness of breath HPI Narrative PITO HENDRIX, is a 53 F with a PMH as outlined who presents via the ED on 09/09/2024 with a complaitn of shortness of breath which started today. She deniedany fever, productive cough or wheezing. She denied any palpitations, dizziness,nausea, vomiting or any other symptoms. REview of systems was other mckeon negative. Vitals in the ED were BP of 135/97, pulse rate of 99, respiratory rate of 27 andtemp of 98.1 Fahrenheit. She was saturating 99% on 2 L of oxygen. CBC showed WBC of 6.2 and hemoglobin of 13.5 with platelets of 180. CHemistry was sodium of138, potassium of 4, bicarb of 17.7 and anion gap of 12. Cr was 0.78. ProBNP [id number]. D dimer was 1.06. CHest xray showed suspect subtle pneumonia in the lower lobes and CT of the chest was negative for any evidence of PE and showed patchy bilateral airspace opacities concerning for infiltrates and small bilateral pleural effusion with atelecdtasis, as well asill defined low attenuating lesion of hte thyroid gland. She is being admitted to be managed for hypoxia dueto acute exacerbation of heart failure. [facility] Medical History Obesity Angina pectoris TRAE (acute kidney injury) Hypokalemia Hyperglycemia History of COPD History of IA (myocardial infarction) Cardiomyopathy, ischemic Type 2 diabetes mellitus Antiplatelet or antithrombotic long-term use Anticoagulant long-term use Presence of cardiac 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 therapy defibrillator (CRTT-D) Diabetes Atrial fibrillation Coronary artery disease Hypertension Paroxysmal atrial fibrillation Hyperthyroidism Vomiting Hirsutism Chronic nausea Non-ST elevation (NSTEMI) myocardial infarction Difficult intubation Syncope Thyroid nodule Kidney stones Former smoker COPD (chronic obstructive pulmonary disease) Irregular heart beat Myocardial infarct Seizures COVID-19 virus infection Atherosclerotic heart disease of [place] coronary artery without angina pectoris HFrEF (heart failure with reduced ejection fraction) Left bundle branch block (LBBB) Non-ischemic cardiomyopathy History of non-ST elevation myocardial infarction (NSTEMI) (09/08/21) Hyperglycemia due to type 2 diabetes mellitus Chronic low back pain Hyperlipidemia Benign hypertension Home Medications ?Medication ?Instructions ?Recorded ?Last Taken ?Type BD Ultra-Fine [place] Pen Needle 32 #100 ea 07/29/22 Unkn own Rx gauge x 5/32 (pen needle, diabetic) diphenhydramine HCl 25 mg tablet 25 mg PO Q4H PRN PRN Allergy 08/06/22 Unknown History Symptoms hydrocodone-acetaminophen 5-325mg 1 tab PO Q8H PRN ross n 08/06/22 01/18/24 History 5mg-325mg naloxegol 25 mg tablet (Movantik) 25 mg PO QAM PRN ross n 08/06/22 Unknown History omeprazole magnesium 20 mg 20 mg PO DAILY reflux 08/0601/19/24 History tablet,delayed release (Prilosec OTC) promethazine 25 mg tablet 25 mg PO TID PRN PRN Nausea And 08/06/22 Unknown History Vomiting tizanidine 4 mg tablet 4 mg PO QHS muscle spasms 01/18/24 History cholecalciferol (vitamin D3) 50 1,000 unit PO DAILY vi tamin 03/08/23 01/19/24 History mcg (2,000 unit) capsule clopidogrel 75 mg tablet (Plavix) 75 mg PO DAILY anti platelet #90 05/16/23 01/19/24 Rx tabs atorvastatin 80 mg tablet See Rx Instructions .Route 0 06/09/23 Unknown Rx .COMPLEX cholesterol #360 TABLETS isosorbide mononitrate 30 mg See Rx Instructions .Rout e 06/09/23 01/19/24 Rx tablet,extended release 24 hr .COMPLEX heart #360 TABL ETS furosemide 20 mg tablet (Lasix) 20 mg PO DAILY diureti c 30 days 09/10/23 01/19/24 Rx #30 tabs blood-glucose meter,continuous #1 ea 10/10/23 Unknown Rx (Dexcom G7 Metal Finisher) apixaban 5 mg tablet (Eliquis) See Rx Instructions .Ro [place] 12/13/23 Unknown Rx .COMPLEX blood thinner #180 tabs dapagliflozin propanediol 10 mg 10 mg PO DAILY diabete s 12/13/23 01/19/24 History tablet (Farxiga) melatonin 10 mg capsule 10 mg PO HS PRN insomnia 02/27 Unknown History sacubitril 97 mg-valsartan 103 mg 1 tab PO BID heart # 180 tabs 12/13/23 01/19/24 Rx tablet (Entresto) carvedilol 25 mg tablet 25 mg PO BID blood pressure #180 12/29/23 Unknown Rx tabs spironolactone 50 mg tablet 50 mg PO DAILY #90 TABLETS 03/20/24 Unknown Rx Dexcom G7 Sensor (blood-glucose #3 ea 04/04/24 Unknown Rx sensor) insulin glargine 100 unit/mL (3 40 unit (0.4 mL) subcu t DAILY 04/04/24 Unknown Rx mL) subcutaneous pen (Lantus diabetes #36 mL Solostar U-100 Insulin) dulaglutide 1.5 mg/0.5 mL 1.5 mg (0.5 mL) subcut QWEEK #2 mL 06/13/24 Unknown Rx subcutaneous pen injector (Trulicity) glipizide 10 mg tablet 10 mg PO BID #180 tabs 06/13 Unknown Rx insulin aspart 20 unit subcut TID #15 mL Unknown Rx (niacinamide)(U-100) 100 unit/mL(3 mL) subcutaneous pen (Fiasp FlexTouch U-100 Insulin) insulin lispro 100 unit/mL 20 unit (0.2 mL) subcut TID #15 mL 06/14/24 Unknown Rx subcutaneous pen (Humalog KwikPen (U-100) Insulin) methimazole 10 mg tablet 10 mg PO DAILY thyroid #90 t abs 07/10/24 Unknown Rx Allergy/AdvReac Type Severity Reaction Status Date / Time amoxicillin trihydrate (From AdvReac Vomiting Verified 09/09/24 15:47 Augmentin) potassium clavulanate (From AdvReac Vomiting Verified 09/09/24 15:47 Augmentin) Family History Father Myocardial infarction Cancer prostate, leukemia Agent orange exposure Diabetes Sister Diabetes COPD (chronic obstructive pulmonary disease) Mother CVA (cerebral vascular accident) Hypertension Surgical History History of bladder surgery (~09/2023) History of cholecystectomy History of appendectomy History of coronary artery stent placement (05/19/21) Status post insertion of nerve stimulator History of laparoscopy History of tonsillectomy History of cholecystectomy (1991) History of hysterectomy History of left heart catheterization (09/14/21) History of back surgery Social History household members: significant other current occupational status: employed Smoking Status: Former smoker how long ago did patient quit smoking: Quit 1990, smoke 2 ppd since teen until quit. alcohol intake: current alcohol intake frequency: holidays/special occasions only substance use type: does not use caffeine: Yes ROS Review of Systems ROS Unobtainable: Denies due to encephalopathy Constitutional Constitutional: Reports fatigue, malaise and weakness; Denies anorexia, chills or fever(s) Eyes Eyes: Denies change in vision ENT HEENT: Denies dysphagia, headache(s) or sore throat Cardiovascular Cardiovascular: Reports dyspnea on exertion; Denies chest pain, edema, lightheadedness or orthopnea Respiratory/Chest Respiratory/Chest: Reports dyspnea, shortness of breath at rest and shortness ofbreath with exertion; Denies cough, excessive phlegm production, hemoptysis, productive cough or wheezing Gastrointestinal Gastrointestinal: Denies abdominal pain, constipation, diarrhea, nausea or vomiting Genitourinary Genitourinary: Denies dysuria Neurologic Neurologic: Denies confusion, dizziness, focal weakness, headache(s), seizure- like activity, seizures, syncope or tremor(s) Psychiatric Psychiatric: Denies anxiety or depression Vital Signs Vital Signs Vital Signs: 09/09/24 15:48 09/09/24 15:59 09/09/24 16:00 Temperature 98.1 F Temperature Source Oral Pulse Rate 102 H Respiratory Rate 24 H Respiratory Effort Short of Breath Labored Respiratory Pattern Tachypnea Blood Pressure 134/95 H Blood Pressure Mean 108 Pulse Ox 100 97 Oxygen Delivery Method Room Air Room Air Room Air Oxygen Flow Rate (L/min) 09/09/24 16:11 09/09/24 16:46 09/09/24 16:50 Temperature 98.1 F Temperature Source Oral Pulse Rate 97 96 97 Respiratory Rate 20 H 25 H 24 H Respiratory Effort Respiratory Pattern Tachypnea Blood Pressure 144/101 H 144/101 H Blood Pressure Mean 114 115 Pulse Ox 100 100 Oxygen Delivery Method Nasal Cannula Oxygen Flow Rate (L/min) 2 09/09/24 17:00 Temperature 98.1 F Temperature Source Oral Pulse Rate 99 Respiratory Rate 27 H Respiratory Effort Respiratory Pattern Blood Pressure 135/97 H Blood Pressure Mean 109 Pulse Ox 99 Oxygen Delivery Method Nasal Cannula Oxygen Flow Rate (L/min) 2 Weight Weight: 212 lb 9.6 oz Body Mass Index (BMI) 36.5 Physical Exam Const alert, oriented x3, no apparent distress and average body habitus General Appearance: cooperative HEENT normocephalic, head/scalp atraumatic, moist oral mucous membranes and oropharynxnormal Eyes PERRL, EOMs intact bilaterally and conjunctivae normal Neck no lymphadenopathy and supple Resp Resp Narrative: Mildly diminished breath sounds bibasilarly. BIlateral wheezing and Mild crackles. On 2 L of oxygenby nasal cannula. Tachypneic Cardio regular rhythm, S1 normal heart sound, S2 normal heart sound and no murmurs Cardio Narrative: tachycardic GI normal to inspection, nondistended, normoactive bowel sounds, soft to palpation and non-tender Extremity normal to inspection, full ROM and no clubbing, cyanosis or edema Neuro oriented x3, CN's II-XII intact bilaterally, moves all extremities and no focal motor deficits Sensorium / Orientation: awake Motor Exam: strength 5/5 throughout Psych affect normal Results Lab / Micro Data 09/09/24 16:07 09/09/24 16:07 Labs: Laboratory Results - last 24 hr 09/09/24 16:07: WBC 6.2, RBC 4.44, Hgb 13.5, Hct 39.9, MCV 89.9, MCH 30.4, MCHC 33.8, RDW Std Deviation 42.7, RDW Coeff of Tomi 13.0, Plt Count 180, MPV 10.2, Immature Gran % (Auto) 0.200, Neut % (Auto) 69.4, Lymph % (Auto) 25.2, [place] % (Auto) 3.9, Eos % (Auto) 1.0, Baso % (Auto) 0.3, Absolute Neuts(auto) 4.3, Absolute Lymphs (auto) 1.55, Nucleated RBC % 0, D-Dimer Quant (PE/DVT) 1.06 H*, Sodium 138, Potassium 4.0, Chloride 108, Carbon Dioxide 17.7 L, Anion Gap 12, BUN 18, Creatinine 0.78, Estim Creat Clear Calc 92.93, Est GFR (MDRD) Non-Af 91,BUN/Creatinine Ratio 22.7 H, Glucose 198 H, Calcium 9.0, NT pro BNP II 2124 H Imaging Radiology Impression Chest X-Ray 09/09/24 16:15 IMPRESSION: Suspect subtle pneumonia in the lower lobes. Reading Location: [facility] Chest CTA 09/09/24 16:42 IMPRESSION: NORMAL CHEST CTA. NO EVIDENCE OF ACUTE PULMONARY EMBOLISM. Patchy bilateral airspace opacities, concerning for infiltrates. Small bilateral pleural effusion with atelectasis. Ill-defined low attenuating lesion of the thyroid gland, please correlate with ultrasound. Reading [facility] Assessment & Plan Assessment/Plan (1) Congestive heart failure (CHF): (2) Hypoxia: PLAN: Plan #Hypoxia due to acute exacerbation of heart failure and COPD exacaerbation * Admit to PCU * Admitted with a complaint of shortness of breath. D-dimer was elevated. CT of the chest was negative for PE but did show patchy bilateral airspace opacities concerning for infiltrate and small bilateral pleural effusions. She has not had a fever and does not have a productive cough so I think this is likely due to the heart failure as her BNP is elevated. * Will diurese with IV Lasix 40 mg twice daily. Currently on 2 L of oxygen. Titrate oxygen to maintain saturation above 90%. Breathing treatments with bronchodilators. * Order 2D echo. * On carvedilol. Will continue. Also on Farxiga. * On Entresto and spironolactone. Will continue these. * will also place on IV solumedrol for COPD exacerbaiton * Previous echo from February 2024 showed EF of 50 to 55% with no evidence of diastolic dysfunction no regional wall motion abnormalities noted with normal RV size and ICD with pacer leads noted within the right ventricle #Type 2 diabetes mellitus: * On Farxiga and dulaglutide as well as Lantus 40 units daily. Insulin sliding scale. Accuhecks ACHS. Also on glipizide. #Benign essential hypertension: On carvedilol #CAD: On high intensity statin and Plavix as well as carvedilol and Imdur. #History of PE: On Eliquis #History of hypothyroidism: On methimazole #History of paroxysmal A-fib: On carvedilol and Eliquis #Hyperlipidemia: On statin #DVT prophylaxis: Already anticoagulated on Eliquis #CODE STATUS * Patient counseled extensively about different types of CODE STATUS including full code, DNR CCA and DNR CCA. Patient elects to be full code. * Total [id number] time 17 minutes. Charges/Coding Visit Charges Inpatient E&M: 37886 Init Hosp L3 Procedures Hospitalists Procedures: 10819 Advncd Care Plan 30 Min 09/09/242016 Cosigner Signature (if applicable): CC: Dr. Margo Tatum DO; Dr. Francine Steele MD~ Signed [facility]04-06-2025 Discharge summary Author Carlos [facility] Note Date/Time September 09, 2024 6:08 pm [facility] Medical Records Department [address] [place] [address] Emergency Department Summary 09/09/24 MR#: [id number] Acct: [id number] Name: PITO HENDRIX KAYLIN Rep #:[id number] : 1970 53 From: Carlos Saleem MD PCP: Dr. Margo Tatum DO Status:REG ER Location: ED HPI History of Present Illness Chief Complaint: Shortness of Breath Narrative Narrative: 53-year-old female past medical history of coronary artery disease, CHF, asthma and COPD presents with shortness of breath that began earlier today, in the morning. States yesterday everything was fine, she woke and went to work and was passing meds when she became very short of breath. She used her inhaler andlast used her sister's nebulizer treatment an hour ago, but states she still feels very short of breath. She denies any recent long car trips or periods of immobilization, no weight gain, no leg swelling. No recent fevers or chills, nocough. She states she feels very short of breath. Her albuterol and nebulizer treatments are not effective in treating her shortness of breath. [facility] Medical History Obesity Angina pectoris TRAE (acute kidney injury) Hypokalemia Hyperglycemia History of COPD History of IA (myocardial infarction) Cardiomyopathy, ischemic Type 2 diabetes mellitus Antiplatelet or antithrombotic long-term use Anticoagulant long-term use Presence of cardiac 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 therapy defibrillator (CRTT-D) Diabetes Atrial fibrillation Coronary artery disease Hypertension Paroxysmal atrial fibrillation Hyperthyroidism Vomiting Hirsutism Chronic nausea Non-ST elevation (NSTEMI) myocardial infarction Difficult intubation Syncope Thyroid nodule Kidney stones Former smoker COPD (chronic obstructive pulmonary disease) Irregular heart beat Myocardial infarct Seizures COVID-19 virus infection Atherosclerotic heart disease of [place] coronary artery without angina pectoris HFrEF (heart failure with reduced ejection fraction) Left bundle branch block (LBBB) Non-ischemic cardiomyopathy History of non-ST elevation myocardial infarction (NSTEMI) (09/08/21) Hyperglycemia due to type 2 diabetes mellitus Chronic low back pain Hyperlipidemia Benign hypertension Home Medications ?Medication ?Instructions ?Recorded ?Last Taken ?Type BD Ultra-Fine [place] Pen Needle 32 #100 ea 07/29/22 Unkn own Rx gauge x 5/32 (pen needle, diabetic) diphenhydramine HCl 25 mg tablet 25 mg PO Q4H PRN PRN Allergy 08/06/22 Unknown History Symptoms hydrocodone-acetaminophen 5-325mg 1 tab PO Q8H PRN ross n 08/06/22 01/18/24 History 5mg-325mg naloxegol 25 mg tablet (Movantik) 25 mg PO QAM PRN ross n 08/06/22 Unknown History omeprazole magnesium 20 mg 20 mg PO DAILY reflux 08/0601/19/24 History tablet,delayed release (Prilosec OTC) promethazine 25 mg tablet 25 mg PO TID PRN PRN Nausea And 08/06/22 Unknown History Vomiting tizanidine 4 mg tablet 4 mg PO QHS muscle spasms 01/18/24 History cholecalciferol (vitamin D3) 50 1,000 unit PO DAILY vi tamin 03/08/23 01/19/24 History mcg (2,000 unit) capsule clopidogrel 75 mg tablet (Plavix) 75 mg PO DAILY anti platelet #90 05/16/23 01/19/24 Rx tabs atorvastatin 80 mg tablet See Rx Instructions .Route 0 06/09/23 Unknown Rx .COMPLEX cholesterol #360 TABLETS isosorbide mononitrate 30 mg See Rx Instructions .Rout e 06/09/23 01/19/24 Rx tablet,extended release 24 hr .COMPLEX heart #360 TABL ETS furosemide 20 mg tablet (Lasix) 20 mg PO DAILY diureti c 30 days 09/10/23 01/19/24 Rx #30 tabs blood-glucose meter,continuous #1 ea 10/10/23 Unknown Rx (Dexcom G7 Metal Finisher) apixaban 5 mg tablet (Eliquis) See Rx Instructions .Ro [place] cliff 12/13/23 Unknown Rx .COMPLEX blood thinner #180 tabs dapagliflozin propanediol 10 mg 10 mg PO DAILY diabete s 12/13/23 01/19/24 History tablet (Farxiga) melatonin 10 mg capsule 10 mg PO HS PRN insomnia 02/27 Unknown History sacubitril 97 mg-valsartan 103 mg 1 tab PO BID heart # 180 tabs 12/13/23 01/19/24 Rx tablet (Entresto) carvedilol 25 mg tablet 25 mg PO BID blood pressure #180 12/29/23 Unknown Rx tabs spironolactone 50 mg tablet 50 mg PO DAILY #90 TABLETS 03/20/24 Unknown Rx Dexcom G7 Sensor (blood-glucose #3 ea 04/04/24 Unknown Rx sensor) insulin glargine 100 unit/mL (3 40 unit (0.4 mL) subcu t DAILY 04/04/24 Unknown Rx mL) subcutaneous pen (Lantus diabetes #36 mL Solostar U-100 Insulin) dulaglutide 1.5 mg/0.5 mL 1.5 mg (0.5 mL) subcut QWEEK #2 mL 06/13/24 Unknown Rx subcutaneous pen injector (Trulicity) glipizide 10 mg tablet 10 mg PO BID #180 tabs 06/13 Unknown Rx insulin aspart 20 unit subcut TID #15 mL Unknown Rx (niacinamide)(U-100) 100 unit/mL(3 mL) subcutaneous pen (Fiasp FlexTouch U-100 Insulin) insulin lispro 100 unit/mL 20 unit (0.2 mL) subcut TID #15 mL 06/14/24 Unknown Rx subcutaneous pen (Humalog KwikPen (U-100) Insulin) methimazole 10 mg tablet 10 mg PO DAILY thyroid #90 t abs 07/10/24 Unknown Rx Allergy/AdvReac Type Severity Reaction Status Date / Time amoxicillin trihydrate (From AdvReac Vomiting Verified 09/09/24 15:47 Augmentin) potassium clavulanate (From AdvReac Vomiting Verified 09/09/24 15:47 Augmentin) Family History Father Myocardial infarction Cancer prostate, leukemia Agent orange exposure Diabetes Sister Diabetes COPD (chronic obstructive pulmonary disease) Mother CVA (cerebral vascular accident) Hypertension Surgical History History of bladder surgery (~09/2023) History of cholecystectomy History of appendectomy History of coronary artery stent placement (05/19/21) Status post insertion of nerve stimulator History of laparoscopy History of tonsillectomy History of cholecystectomy (1991) History of hysterectomy History of left heart catheterization (09/14/21) History of back surgery Social History household members: significant other current occupational status: employed Smoking Status: Former smoker how long ago did patient quit smoking: Quit 1990, smoke 2 ppd since teen until quit. alcohol intake: current alcohol intake frequency: holidays/special occasions only substance use type: does not use caffeine: Yes ROS ROS ED ROS Narrative Constitutional: No fever, no chills. No weight gain. Cardiovascular: No chest pain. No palpitations. No pedal edema. Respiratory: No cough, positive shortness of breath. Abdominal: No abdominal pain. No nausea. No vomiting. Musculoskeletal: No myalgias. No arthralgias. Neurologic: No headaches. No dizziness. No lightheadedness. Psychiatric: No depression. No anxiety. EXAM Physical Exam Narrative Exam Narrative: Afebrile. Vital signs noted. Nontoxic-appearing. HEENT exam grossly unremarkable, PERRL, EOMI. Cardiovascular examination reveals mild tachycardia at 102 bpm. Lungs are clear to auscultation bilaterally, moving a good amount of air, positive tachypnea. Abdomen soft nontender. No pedal edema bilaterally. Neurological examination nonfocal and nonlateralizing. Const Vital Signs: 09/09/24 15:48 09/09/24 15:59 09/09/24 16:00 Temperature 98.1 F Temperature Source Oral Pulse Rate 102 H Respiratory Rate 24 H Respiratory Effort Short of Breath Labored Respiratory Pattern Tachypnea Blood Pressure 134/95 H Blood Pressure Mean 108 Pulse Ox 100 97 Oxygen Delivery Method Room Air Room Air Room Air Oxygen Flow Rate (L/min) 09/09/24 16:11 09/09/24 16:46 09/09/24 16:50 Temperature 98.1 F Temperature Source Oral Pulse Rate 97 96 97 Respiratory Rate 20 H 25 H 24 H Respiratory Effort Respiratory Pattern Tachypnea Blood Pressure 144/101 H 144/101 H Blood Pressure Mean 114 115 Pulse Ox 100 100 Oxygen Delivery Method Nasal Cannula Oxygen Flow Rate (L/min) 2 09/09/24 17:00 Temperature 98.1 F Temperature Source Oral Pulse Rate 99 Respiratory Rate 27 H Respiratory Effort Respiratory Pattern Blood Pressure 135/97 H Blood Pressure Mean 109 Pulse Ox 99 Oxygen Delivery Method Nasal Cannula Oxygen Flow Rate (L/min) 2 MDM MDM MDM Narrative Medical decision making narrative: Differential diagnosis includes but not limited to asthma exacerbation versus CHF versus pulmonary embolism. I have low suspicion for ACS. EKG was obtained and interpreted by myself independently as an atrial sensed ventricular paced rhythm at [address] changes. No STEMI. Initial laboratory work was obtained and reviewed and she has normal white count of 6.2 with hemoglobin 13.5, hematocrit 39.9, platelet count 180. Her D-dimer is slightly elevated at 1.06. When compared to prior labs, she has had a normal value in the past, but evidence of chronic elevation. Additionally, she is on Eliquis. I doubt she has a pulmonary embolism. However, on her chest x-ray it appears she has by basilar pneumonia and fluffy infiltrates with small pleural effusions. While I suspect more CHF, I will obtain a CTA to rule out the pulmonary embolism and take a closer look at her lungs to see if she has more fluid versus pneumonia. She has not really had an infectious symptomatology for clinical pneumonia as she has not had a fever or productive cough and she has no white count. Her BNP is elevated at 2124. She was administered Lasix 40 mg intravenously. Repeat examination at [id number] does show mild improvement but she still has mild tachypnea. I reviewed her BMP and carbon dioxide low at 17.7 which I think may be secondaryto hyperventilation, BUN of 18 creatinine 0.78. Glucose elevated at 198 but normal anion gap of 12. I reviewed the radiology report of the CTA and there isno evidence of a pulmonary embolism, no gross aortic dissection. She does have the bilateral infiltrates and small pleural effusions which once again I think is probably secondary more to a CHF. Given her tachypnea at rest and the need for oxygen for comfort, I discussed the patient with the hospitalist, Dr. Steele for admission to the PCU. Patient is in stable condition. History & Record Review Discussion w/independent historian: Patient Lab Data Attestation: I reviewed the patient's lab results. Labs: Laboratory Results - last 24 hr 09/09/24 16:07 WBC 6.2 RBC 4.44 Hgb 13.5 Hct 39.9 MCV 89.9 MCH 30.4 MCHC 33.8 RDW Std Deviation 42.7 RDW Coeff of Tomi 13.0 Plt Count 180 MPV 10.2 Immature Gran % (Auto) 0.200 Neut % (Auto) 69.4 Lymph % (Auto) 25.2 [place] % (Auto) 3.9 Eos % (Auto) 1.0 Baso % (Auto) 0.3 Absolute Neuts (auto) 4.3 Absolute Lymphs (auto) 1.55 Nucleated RBC % 0 D-Dimer Quant (PE/DVT) 1.06 H* Sodium 138 Potassium 4.0 Chloride 108 Carbon Dioxide 17.7 L Anion Gap 12 BUN 18 Creatinine 0.78 Estim Creat Clear Calc 92.93 Est GFR (MDRD) Non-Af 91 BUN/Creatinine Ratio 22.7 H Glucose 198 H Calcium 9.0 NT pro BNP II 2124 H Radiography Chest X-Ray - ED: 1 View, Read by ED Physician, Read by Radiologist, Right Infiltrate, Left Infiltrate, Right Effusion and Left Effusion Diagnostic Testing: Clinical Impression(s) from Imaging Studies Chest X-Ray 09/09/24 16:15 IMPRESSION: Suspect subtle pneumonia in the lower lobes. Reading Location: [facility] Chest CTA 09/09/24 16:42 IMPRESSION: NORMAL CHEST CTA. NO EVIDENCE OF ACUTE PULMONARY EMBOLISM. Patchy bilateral airspace opacities, concerning for infiltrates. Small bilateral pleural effusion with atelectasis. Ill-defined low attenuating lesion of the thyroid gland, please correlate with ultrasound. Reading [facility] Differential Diagnosis Chest pain/SOB: pulmonary embolism, ACS, pneumothorax, pneumonia, CHF and COPD Management Discussion w/another healthcare provider: Hospitalist Discharge Plan Dx/Rx/DC Orders Clinical Impression: Dyspnea, Pacemaker, Chronic anticoagulation, Elevated d-dimer, Congestive heartfailure (CHF) Disposition Disposition: Acute Care Hospital [facility] What to do if you have Problems For any increased pain, shortness of breath, bleeding, nausea or vomiting, chestpain, or any unexpected problems, contact your Primary Care Provider. Call [facility] ([phone]) or report to the closest Emergency Room. Call 911 if necessary. 09/09/241807 <Electronically signed by Carlos Saleem MD> Cosigner Signature (if applicable): CC: Dr. Margo Tatum, ~ Signed [facility] Work Phone: [phone] 544-899204-06-2025 History and physical note Author Francine [facility] Note Date/Time September 09, 2024 8:17 pm [facility] Medical Records Department [address] [place] [address] H&P Exam - Hospitalist 09/09/241801 MR#: [id number] Acct: [id number] Name: PITO HENDRIX Rep #:[id number] : 1970 53 From: Francine Steele MD PCP: Dr. Margo Tatum DO Status:ADM IN Location: [facility] [id number] HPI - General General Date of Admission: 09/09/24 Date of Service: 09/09/24 Chief Complaint: shortness of breath HPI Narrative PITO HENDRIX, is a 53 F with a PMH as outlined who presents via the ED on 09/09/2024 with a complaitn of shortness of breath which started today. She deniedany fever, productive cough or wheezing. She denied any palpitations, dizziness,nausea, vomiting or any other symptoms. REview of systems was otherwise negative. Vitals in the ED were BP of 135/97, pulse rate of 99, respiratory rate of 27 andtemp of 98.1 Fahrenheit. She was saturating 99% on 2 L of oxygen. CBC showed WBC of 6.2 and hemoglobin of 13.5 with platelets of 180. CHemistry was sodium of138, potassium of 4, bicarb of 17.7 and anion gap of 12. Cr was 0.78. ProBNP [id number]. D dimer was 1.06. CHest xray showed suspect subtle pneumonia in the lower lobes and CT of the chest was negative for any evidence of PE and showed patchy bilateral airspace opacities concerning for infiltrates and small bilateral pleural effusion with atelecdtasis, as well as ill defined low attenuating lesion of hte thyroid gland. She is being admitted to be managed for hypoxia dueto acute exacerbation of heart failure. [facility] Medical History Obesity Angina pectoris TRAE (acute kidney injury) Hypokalemia Hyperglycemia History of COPD History of IA (myocardial infarction) Cardiomyopathy, ischemic Type 2 diabetes mellitus Antiplatelet or antithrombotic long-term use Anticoagulant long-term use Presence of cardiac 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 therapy defibrillator (CRTT-D) Diabetes Atrial fibrillation Coronary artery disease Hypertension Paroxysmal atrial fibrillation Hyperthyroidism Vomiting Hirsutism Chronic nausea Non-ST elevation (NSTEMI) myocardial infarction Difficult intubation Syncope Thyroid nodule Kidney stones Former smoker COPD (chronic obstructive pulmonary disease) Irregular heart beat Myocardial infarct Seizures COVID-19 virus infection Atherosclerotic heart disease of [place] coronary artery without angina pectoris HFrEF (heart failure with reduced ejection fraction) Left bundle branch block (LBBB) Non-ischemic cardiomyopathy History of non-ST elevation myocardial infarction (NSTEMI) (09/08/21) Hyperglycemia due to type 2 diabetes mellitus Chronic low back pain Hyperlipidemia Benign hypertension Home Medications ?Medication ?Instructions ?Recorded ?Last Taken ?Type BD Ultra-Fine [place] Pen Needle 32 #100 ea 07/29/22 Unkn own Rx gauge x 5/32 (pen needle, diabetic) diphenhydramine HCl 25 mg tablet 25 mg PO Q4H PRN PRN Allergy 08/06/22 Unknown History Symptoms hydrocodone-acetaminophen 5-325mg 1 tab PO Q8H PRN ross n 08/06/22 01/18/24 History 5mg-325mg naloxegol 25 mg tablet (Movantik) 25 mg PO QAM PRN ross n 08/06/22 Unknown History omeprazole magnesium 20 mg 20 mg PO DAILY reflux 08/0601/19/24 History tablet,delayed release (Prilosec OTC) promethazine 25 mg tablet 25 mg PO TID PRN PRN Nausea And 08/06/22 Unknown History Vomiting tizanidine 4 mg tablet 4 mg PO QHS muscle spasms 01/18/24 History cholecalciferol (vitamin D3) 50 1,000 unit PO DAILY vi tamin 03/08/23 01/19/24 History mcg (2,000 unit) capsule clopidogrel 75 mg tablet (Plavix) 75 mg PO DAILY anti platelet #90 05/16/23 01/19/24 Rx tabs atorvastatin 80 mg tablet See Rx Instructions .Route 0 06/09/23 Unknown Rx .COMPLEX cholesterol #360 TABLETS isosorbide mononitrate 30 mg See Rx Instructions .Rout e 06/09/23 01/19/24 Rx tablet,extended release 24 hr .COMPLEX heart #360 TABL ETS furosemide 20 mg tablet (Lasix) 20 mg PO DAILY diureti c 30 days 09/10/23 01/19/24 Rx #30 tabs blood-glucose meter,continuous #1 ea 10/10/23 Unknown Rx (Dexcom G7 Metal Finisher) apixaban 5 mg tablet (Eliquis) See Rx Instructions .Ro [place] 12/13/23 Unknown Rx .COMPLEX blood thinner #180 tabs dapagliflozin propanediol 10 mg 10 mg PO DAILY diabete s 12/13/23 01/19/24 History tablet (Farxiga) melatonin 10 mg capsule 10 mg PO HS PRN insomnia 02/27 Unknown History sacubitril 97 mg-valsartan 103 mg 1 tab PO BID heart # 180 tabs 12/13/23 01/19/24 Rx tablet (Entresto) carvedilol 25 mg tablet 25 mg PO BID blood pressure #180 12/29/23 Unknown Rx tabs spironolactone 50 mg tablet 50 mg PO DAILY #90 TABLETS 03/20/24 Unknown Rx Dexcom G7 Sensor (blood-glucose #3 ea 04/04/24 Unknown Rx sensor) insulin glargine 100 unit/mL (3 40 unit (0.4 mL) subcu t DAILY 04/04/24 Unknown Rx mL) subcutaneous pen (Lantus diabetes #36 mL Solostar U-100 Insulin) dulaglutide 1.5 mg/0.5 mL 1.5 mg (0.5 mL) subcut QWEEK #2 mL 06/13/24 Unknown Rx subcutaneous pen injector (Trulicity) glipizide 10 mg tablet 10 mg PO BID #180 tabs 06/13 Unknown Rx insulin aspart 20 unit subcut TID #15 mL Unknown Rx (niacinamide)(U-100) 100 unit/mL(3 mL) subcutaneous pen (Fiasp FlexTouch U-100 Insulin) insulin lispro 100 unit/mL 20 unit (0.2 mL) subcut TID #15 mL 06/14/24 Unknown Rx subcutaneous pen (Humalog KwikPen (U-100) Insulin) methimazole 10 mg tablet 10 mg PO DAILY thyroid #90 t abs 07/10/24 Unknown Rx Allergy/AdvReac Type Severity Reaction Status Date / Time amoxicillin trihydrate (From AdvReac Vomiting Verified 09/09/24 15:47 Augmentin) potassium clavulanate (From AdvReac Vomiting Verified 09/09/24 15:47 Augmentin) Family History Father Myocardial infarction Cancer prostate, leukemia Agent orange exposure Diabetes Sister Diabetes COPD (chronic obstructive pulmonary disease) Mother CVA (cerebral vascular accident) Hypertension Surgical History History of bladder surgery (~09/2023) History of cholecystectomy History of appendectomy History of coronary artery stent placement (05/19/21) Status post insertion of nerve stimulator History of laparoscopy History of tonsillectomy History of cholecystectomy (1991) History of hysterectomy History of left heart catheterization (09/14/21) History of back surgery Social History household members: significant other current occupational status: employed Smoking Status: Former smoker how long ago did patient quit smoking: Quit 1990, smoke 2 ppd since teen until quit. alcohol intake: current alcohol intake frequency: holidays/special occasions only substance use type: does not use caffeine: Yes ROS Review of Systems ROS Unobtainable: Denies due to encephalopathy Constitutional Constitutional: Reports fatigue, malaise and weakness; Denies anorexia, chills or fever(s) Eyes Eyes: Denies change in vision ENT HEENT: Denies dysphagia, headache(s) or sore throat Cardiovascular Cardiovascular: Reports dyspnea on exertion; Denies chest pain, edema, lightheadedness or orthopnea Respiratory/Chest Respiratory/Chest: Reports dyspnea, shortness of breath at rest and shortness ofbreath with exertion; Denies cough, excessive phlegm production, hemoptysis, productive cough or wheezing Gastrointestinal Gastrointestinal: Denies abdominal pain, constipation, diarrhea, nausea or vomiting Genitourinary Genitourinary: Denies dysuria Neurologic Neurologic: Denies confusion, dizziness, focal weakness, headache(s), seizure- like activity, seizures, syncope or tremor(s) Psychiatric Psychiatric: Denies anxiety or depression Vital Signs Vital Signs Vital Signs: 09/09/24 15:48 09/09/24 15:59 09/09/24 16:00 Temperature 98.1 F Temperature Source Oral Pulse Rate 102 H Respiratory Rate 24 H Respiratory Effort Short of Breath Labored Respiratory Pattern Tachypnea Blood Pressure 134/95 H Blood Pressure Mean 108 Pulse Ox 100 97 Oxygen Delivery Method Room Air Room Air Room Air Oxygen Flow Rate (L/min) 09/09/24 16:11 09/09/24 16:46 09/09/24 16:50 Temperature 98.1 F Temperature Source Oral Pulse Rate 97 96 97 Respiratory Rate 20 H 25 H 24 H Respiratory Effort Respiratory Pattern Tachypnea Blood Pressure 144/101 H 144/101 H Blood Pressure Mean 114 115 Pulse Ox 100 100 Oxygen Delivery Method Nasal Cannula Oxygen Flow Rate (L/min) 2 09/09/24 17:00 Temperature 98.1 F Temperature Source Oral Pulse Rate 99 Respiratory Rate 27 H Respiratory Effort Respiratory Pattern Blood Pressure 135/97 H Blood Pressure Mean 109 Pulse Ox 99 Oxygen Delivery Method Nasal Cannula Oxygen Flow Rate (L/min) 2 Weight Weight: 212 lb 9.6 oz Body Mass Index (BMI) 36.5 Physical Exam Const alert, oriented x3, no apparent distress and average body habitus General Appearance: cooperative HEENT normocephalic, head/scalp atraumatic, moist oral mucous membranes and oropharynxnormal Eyes PERRL, EOMs intact bilaterally and conjunctivae normal Neck no lymphadenopathy and supple Resp Resp Narrative: Mildly diminished breath sounds bibasilarly. BIlateral wheezing and Mild crackles. On 2 L of oxygen by nasal cannula. Tachypneic Cardio regular rhythm, S1 normal heart sound, S2 normal heart sound and no murmurs Cardio Narrative: tachycardic GI normal to inspection, nondistended, normoactive bowel sounds, soft to palpation and non-tender Extremity normal to inspection, full ROM and no clubbing, cyanosis or edema Neuro oriented x3, CN's II-XII intact bilaterally, moves all extremities and no focal motor deficits Sensorium / Orientation: awake Motor Exam: strength 5/5 throughout Psych affect normal Results Lab / Micro Data 09/09/24 16:07 09/09/24 16:07 Labs: Laboratory Results - last 24 hr 09/09/24 16:07: WBC 6.2, RBC 4.44, Hgb 13.5, Hct 39.9, MCV 89.9, MCH 30.4, MCHC 33.8, RDW Std Deviation 42.7, RDW Coeff of Tomi 13.0, Plt Count 180, MPV 10.2, Immature Gran % (Auto) 0.200, Neut % (Auto) 69.4, Lymph % (Auto) 25.2, [place] % (Auto) 3.9, Eos % (Auto) 1.0, Baso % (Auto) 0.3, Absolute Neuts (auto) 4.3, Absolute Lymphs (auto) 1.55, Nucleated RBC % 0, D-Dimer Quant (PE/DVT) 1.06 H*, Sodium 138, Potassium 4.0, Chloride 108, Carbon Dioxide 17.7 L, Anion Gap 12, BUN 18, Creatinine 0.78, Estim Creat Clear Calc 92.93, Est GFR (MDRD) Non-Af 91,BUN/Creatinine Ratio 22.7 H, Glucose 198 H, Calcium 9.0, NT pro BNP II 2124 H Imaging Radiology Impression Chest X-Ray 09/09/24 16:15 IMPRESSION: Suspect subtle pneumonia in the lower lobes. Reading Location: [facility] Chest CTA 09/09/24 16:42 IMPRESSION: NORMAL CHEST CTA. NO EVIDENCE OF ACUTE PULMONARY EMBOLISM. Patchy bilateral airspace opacities, concerning for infiltrates. Small bilateral pleural effusion with atelectasis. Ill-defined low attenuating lesion of the thyroid gland, please correlate with ultrasound. Reading Location: [facility] Assessment & Plan Assessment/Plan (1) Congestive heart failure (CHF): (2) Hypoxia: PLAN: Plan #Hypoxia due to acute exacerbation of heart failure and COPD exacaerbation * Admit to PCU * Admitted with a complaint of shortness of breath. D-dimer was elevated. CT of the chest was negative for PE but did show patchy bilateral airspace opacities concerning for infiltrate and small bilateral pleural effusions. She has not had a fever and does not have a productive cough so I think this is likely due to the heart failure as her BNP is elevated. * Will diurese with IV Lasix 40 mg twice daily. Currently on 2 L of oxygen. Titrate oxygen to maintain saturation above 90%. Breathing treatments with bronchodilators. * Order 2D echo. * On carvedilol. Will continue. Also on Farxiga. * On Entresto and spironolactone. Will continue these. * will also place on IV solumedrol for COPD exacerbaiton * Previous echo from February 2024 showed EF of 50 to 55% with no evidence of diastolic dysfunction no regional wall motion abnormalities noted with normal RV size and ICD with pacer leads noted within the right ventricle #Type 2 diabetes mellitus: * On Farxiga and dulaglutide as well as Lantus 40 units daily. Insulin sliding scale. Accuhecks ACHS. Also on glipizide. #Benign essential hypertension: On carvedilol #CAD: On high intensity statin and Plavix as well as carvedilol and Imdur. #History of PE: On Eliquis #History of hypothyroidism: On methimazole #History of paroxysmal A-fib: On carvedilol and Eliquis #Hyperlipidemia: On statin #DVT prophylaxis: Already anticoagulated on Eliquis #CODE STATUS * Patient counseled extensively about different types of CODE STATUS including full code, DNR CCA and DNR CCA. Patient elects to be full code. * Total hzlg-[id number] time 17 minutes. Charges/Coding Visit Charges Inpatient E&M: 57516 Init Hosp L3 Procedures Hospitalists Procedures: 58140 Advncd Care Plan 30 Min 09/09/242016 <Electronically signed by Francine Steele MD> Cosigner Signature (if applicable): CC: Dr. Margo Tatum DO; Dr. Francine Steele MD~ Signed [facility] Work Phone: 1(158) 536-526204-06-2025 Discharge summary [facility] Medical Records Department [address] [place] [address] Emergency Department Summary 09/09/24 MR#: [id number] Acct: [id number] Name: PITO HENDRIX Rep #:[id number] : 1970 53 From: Carlos Saleem MD PCP: Dr. Margo Tatum DO Status:REG ER Location: ED HPI History of Present Illness Chief Complaint: Shortness of Breath Narrative Narrative: 53-year-old female past medical history of coronary artery disease, CHF, asthma and COPD presents with shortness of breath that began earlier today, in the morning. States yesterday everything was fine, she woke and went to work and was passing meds when she became very short of breath. She used her inhaler andlast used her sister's nebulizer treatment an hour ago, but states she still feels veryshort of breath. She denies any recent long car trips or periods of immobilization, no weight gain,no leg swelling. No recent fevers or chills, nocough. She states she feels very short of breath. Her albuterol and nebulizer treatments are not effective in treating her shortness of breath. [facility] Medical History Obesity Angina pectoris TRAE (acute kidney injury) Hypokalemia Hyperglycemia History of COPD History of IA (myocardial infarction) Cardiomyopathy, ischemic Type 2 diabetes mellitus Antiplatelet or antithrombotic long-term use Anticoagulant long-term use Presence of cardiac 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 therapy defibrillator (CRTT-D) Diabetes Atrial fibrillation Coronary artery disease Hypertension Paroxysmal atrial fibrillation Hyperthyroidism Vomiting Hirsutism Chronic nausea Non-ST elevation (NSTEMI) myocardial infarction Difficult intubation Syncope Thyroid nodule Kidney stones Former smoker COPD (chronic obstructive pulmonary disease) Irregular heart beat Myocardial infarct Seizures COVID-19 virus infection Atherosclerotic heart disease of [place] coronary artery without angina pectoris HFrEF (heart failure with reduced ejection fraction) Left bundle branch block (LBBB) Non-ischemic cardiomyopathy History of non-ST elevation myocardial infarction (NSTEMI) (09/08/21) Hyperglycemia due to type 2 diabetes mellitus Chronic low back pain Hyperlipidemia Benign hypertension Home Medications ?Medication ?Instructions ?Recorded ?Last Taken ?Type BD Ultra-Fine [place] Pen Needle 32 #100 ea 07/29/22 Unkn own Rx gauge x 5/32 (pen needle, diabetic) diphenhydramine HCl 25 mg tablet 25 mg PO Q4H PRN PRN Allergy 08/06/22 Unknown History Symptoms hydrocodone-acetaminophen 5-325mg 1 tab PO Q8H PRN ross n 08/06/22 01/18/24 History 5mg-325mg naloxegol 25 mg tablet (Movantik) 25 mg PO QAM PRN ross n 08/06/22 Unknown History omeprazole magnesium 20 mg 20 mg PO DAILY reflux 08/0601/19/24 History tablet,delayed release (Prilosec OTC) promethazine 25 mg tablet 25 mg PO TID PRN PRN Nausea And 08/06/22 Unknown History Vomiting tizanidine 4 mg tablet 4 mg PO QHS muscle spasms 01/18/24 History cholecalciferol (vitamin D3) 50 1,000 unit PO DAILY vi tamin 03/08/23 01/19/24 History mcg (2,000 unit) capsule clopidogrel 75 mg tablet (Plavix) 75 mg PO DAILY anti platelet #90 05/16/23 01/19/24 Rx tabs atorvastatin 80 mg tablet See Rx Instructions .Route 0 06/09/23 Unknown Rx .COMPLEX cholesterol #360 TABLETS isosorbide mononitrate 30 mg See Rx Instructions .Rout e 06/09/23 01/19/24 Rx tablet,extended release 24 hr .COMPLEX heart #360 TABL ETS furosemide 20 mg tablet (Lasix) 20 mg PO DAILY diureti c 30 days 09/10/23 01/19/24 Rx #30 tabs blood-glucose meter,continuous #1 ea 10/10/23 Unknown Rx (Dexcom G7 Metal Finisher) apixaban 5 mg tablet (Eliquis) See Rx Instructions .Ro red cliff 12/13/23 Unknown Rx .COMPLEX blood thinner #180 tabs dapagliflozin propanediol 10 mg 10 mg PO DAILY diabete s 12/13/23 01/19/24 History tablet (Farxiga) melatonin 10 mg capsule 10 mg PO HS PRN insomnia 02/27 Unknown History sacubitril 97 mg-valsartan 103 mg 1 tab PO BID heart # 180 tabs 12/13/23 01/19/24 Rx tablet (Entresto) carvedilol 25 mg tablet 25 mg PO BID blood pressure #180 12/29/23 Unknown Rx tabs spironolactone 50 mg tablet 50 mg PO DAILY #90 TABLETS 03/20/24 Unknown Rx Dexcom G7 Sensor (blood-glucose #3 ea 04/04/24 Unknown Rx sensor) insulin glargine 100 unit/mL (3 40 unit (0.4 mL) subcu t DAILY 04/04/24 Unknown Rx mL) subcutaneous pen (Lantus diabetes #36 mL Solostar U-100 Insulin) dulaglutide 1.5 mg/0.5 mL 1.5 mg (0.5 mL) subcut QWEEK #2 mL 06/13/24 Unknown Rx subcutaneous pen injector (Trulicity) glipizide 10 mg tablet 10 mg PO BID #180 tabs 06/13 Unknown Rx insulin aspart 20 unit subcut TID #15 mL Unknown Rx (niacinamide)(U-100) 100 unit/mL(3 mL) subcutaneous pen (Fiasp FlexTouch U-100 Insulin) insulin lispro 100 unit/mL 20 unit (0.2 mL) subcut TID #15 mL 06/14/24 Unknown Rx subcutaneous pen (Humalog KwikPen (U-100) Insulin) methimazole 10 mg tablet 10 mg PO DAILY thyroid #90 t abs 07/10/24 Unknown Rx Allergy/AdvReac Type Severity Reaction Status Date / Time amoxicillin trihydrate (From AdvReac Vomiting Verified 09/09/24 15:47 Augmentin) potassium clavulanate (From AdvReac Vomiting Verified 09/09/24 15:47 Augmentin) Family History Father Myocardial infarction Cancer prostate, leukemia Agent orange exposure Diabetes Sister Diabetes COPD (chronic obstructive pulmonary disease) Mother CVA (cerebral vascular accident) Hypertension Surgical History History of bladder surgery (~09/2023) History of cholecystectomy History of appendectomy History of coronary artery stent placement (05/19/21) Status post insertion of nerve stimulator History of laparoscopy History of tonsillectomy History of cholecystectomy (1991) History of hysterectomy History of left heart catheterization (09/14/21) History of back surgery Social History household members: significant other current occupational status: employed Smoking Status: Former smoker how long ago did patient quit smoking: Quit 1990, smoke 2 ppd since teen until quit. alcohol intake: current alcohol intake frequency: holidays/special occasions only substance use type: does not use caffeine: Yes ROS ROS ED ROS Narrative Constitutional: No fever, no chills. No weight gain. Cardiovascular: No chest pain. No palpitations. No pedal edema. Respiratory: No cough, positive shortness of breath. Abdominal: No abdominal pain. No nausea. No vomiting. Musculoskeletal: No myalgias. No arthralgias. Neurologic: No headaches. No dizziness. No lightheadedness. Psychiatric: No depression. No anxiety. EXAM Physical Exam Narrative Exam Narrative: Afebrile. Vital signs noted. Nontoxic-appearing. HEENT exam grossly unremarkable, PERRL, EOMI. Cardiovascular examination reveals mild tachycardia at 102 bpm. Lungs are clear to auscultation bilaterally, moving a good amount of air, positive tachypnea. Abdomen soft nontender. No pedal edema bilaterally. Neurological examination nonfocal and nonlateralizing. Const Vital Signs: 09/09/24 15:48 09/09/24 15:59 09/09/24 16:00 Temperature 98.1 F Temperature Source Oral Pulse Rate 102 H Respiratory Rate 24 H Respiratory Effort Short of Breath Labored Respiratory Pattern Tachypnea Blood Pressure 134/95 H Blood Pressure Mean 108 Pulse Ox 100 97 Oxygen Delivery Method Room Air Room Air Room Air Oxygen Flow Rate (L/min) 09/09/24 16:11 09/09/24 16:46 09/09/24 16:50 Temperature 98.1 F Temperature Source Oral Pulse Rate 97 96 97 Respiratory Rate 20 H 25 H 24 H Respiratory Effort Respiratory Pattern Tachypnea Blood Pressure 144/101 H 144/101 H Blood Pressure Mean 114 115 Pulse Ox 100 100 Oxygen Delivery Method Nasal Cannula Oxygen Flow Rate (L/min) 2 09/09/24 17:00 Temperature 98.1 F Temperature Source Oral Pulse Rate 99 Respiratory Rate 27 H Respiratory Effort Respiratory Pattern Blood Pressure 135/97 H Blood Pressure Mean 109 Pulse Ox 99 Oxygen Delivery Method Nasal Cannula Oxygen Flow Rate (L/min) 2 MDM MDM MDM Narrative Medical decision making narrative: Differential diagnosis includes but not limited to asthma exacerbation versus CHF versus pulmonary embolism. I have low suspicion for ACS. EKG was obtained and interpreted by myself independently as an atrial sensed ventricular paced rhythm at [address] changes. No STEMI. Initial laboratory work was obtained and reviewed and she has normal white count of 6.2 with hemoglobin 13.5, hematocrit 39.9, platelet count 180. Her D-dimer is slightly elevated at 1.06. When compared to prior labs, she has had a normal value in the past, but evidence of chronic elevation. Additionally, she is on Eliquis. I doubt she has a pulmonary embolism. However, on her chest x-ray it appears she has by basilar pneumonia and fluffy infiltrates with small pleural effusions. While I suspect more CHF, I will obtain a CTA to rule out the pulmonary embolism and take a closer look at her lungs to see if she has more fluid versus pneumonia. She has not really had an infectious symptomatology for clinical pneumonia as she has not had a fever or productive cough and she has no white count. Her BNP is elevated at 2124. She was administered Lasix 40 mg intravenously. Repeat examination at [id number] does show mild improvement butshe still has mild tachypnea. I reviewed her BMP and carbon dioxide low at 17.7 which I think may be secondaryto hyperventilation, BUN of 18 creatinine 0.78. Glucose elevated at 198 but normal anion gap of 12. I reviewed the radiology report of the CTA and there isno evidence of a pulmonary embolism, no gross aortic dissection.She does have the bilateral infiltrates and small pleural effusions which once again I think is probably secondary more to a CHF. Given her tachypnea at rest and the need for oxygen for comfort, I discussed the patient with the hospitalist, Dr. Steele for admission to the PCU. Patient is in stable condition. History & Record Review Discussion w/independent historian: Patient Lab Data Attestation: I reviewed the patient's lab results. Labs: Laboratory Results - last 24 hr 09/09/24 16:07 WBC 6.2 RBC 4.44 Hgb 13.5 Hct 39.9 MCV 89.9 MCH 30.4 MCHC 33.8 RDW Std Deviation 42.7 RDW Coeff of Tomi 13.0 Plt Count 180 MPV 10.2 Immature Gran % (Auto) 0.200 Neut % (Auto) 69.4 Lymph % (Auto) 25.2 [place] % (Auto) 3.9 Eos % (Auto) 1.0 Baso % (Auto) 0.3 Absolute Neuts (auto) 4.3 Absolute Lymphs (auto) 1.55 Nucleated RBC % 0 D-Dimer Quant (PE/DVT) 1.06 H* Sodium 138 Potassium 4.0 Chloride 108 Carbon Dioxide 17.7 L Anion Gap 12 BUN 18 Creatinine 0.78 Estim Creat Clear Calc 92.93 Est GFR (MDRD) Non-Af 91 BUN/Creatinine Ratio 22.7 H Glucose 198 H Calcium 9.0 NT pro BNP II 2124 H Radiography Chest X-Ray - ED: 1 View, Read by ED Physician, Read by Radiologist, Right Infiltrate, Left Infiltrate, Right Effusion and Left Effusion Diagnostic Testing: Clinical Impression(s) from Imaging Studies Chest X-Ray 09/09/24 16:15 IMPRESSION: Suspect subtle pneumonia in the lower lobes. Reading [facility] Chest CTA 09/09/24 16:42 IMPRESSION: NORMAL CHEST CTA. NO EVIDENCE OF ACUTE PULMONARY EMBOLISM. Patchy bilateral airspace opacities, concerning for infiltrates. Small bilateral pleural effusion with atelectasis. Ill-defined low attenuating lesion of the thyroid gland, please correlate with ultrasound. Reading Location: [facility] Differential Diagnosis Chest pain/SOB: pulmonary embolism, ACS, pneumothorax, pneumonia, CHF and COPD Management Discussion w/another healthcare provider: Hospitalist Discharge Plan Dx/Rx/DC Orders Clinical Impression: Dyspnea, Pacemaker, Chronic anticoagulation, Elevated d-dimer, Congestive heartfailure (CHF) Disposition Disposition: Acute Care Hospital [facility] What to do if you have Problems For any increased pain, shortness of breath, bleeding, nausea or vomiting, chestpain, or any unexpected problems, contact your Primary Care Provider. Call [facility] ([phone]) or report tothe closest Emergency Room. Call 911 if necessary. 09/09/24 9524 Cosigner Signature (if applicable): CC: Dr. Margo Tatum DO ~ Signed [facility]04-06-2025 Radiology Diagnostic study note [facility] Imaging Services [address] [place], [place] [address] CTA Chest W/WO Contrast MR#: [id number] Acct: [id number] Name: PITO HENDRIX Rep #: [id number] : 1970 F 53 From: Ventura Diggs DO PCP: Dr. Margo Tatum DO Status: REG ER Study:CTA Chest W/WO Contrast Date of Exam: 09/09/24 Exam# [id number] Ordering Dr: Carlos Saleem MD PROCEDURE: CTA CHEST W/WO CONTRAST 09/09/2024 REASON FOR EXAM: ELEVATED D-DIMER TECHNIQUE: CTA axial imaging of the chest with intravenous contrast. Coronal and Sagittal reconstruction series were provided. 3D, 3D post processing, 3D reconstructions, Maximum intensity projection (MIPs) Volume rendering and Shaded surface rendering was provided. PATIENT PREPARATION: Per protocol CONTRAST: Isovue 370 VOLUME: 100 mL Not Provided Gauge IV One or more dose reduction techniques were used (e.g., Automated exposure control, adjustment of the mA and/or kV according to patient size, use of iterative reconstruction technique). RADIATION DOSE SUMMARY: CTDlvol: 21 mGy DLP: 388 mGycm . COMPARISON: None FINDINGS: Hardware: Pacemaker. Lymph nodes: No lymphadenopathy. Heart: Heart size is normal. No pericardial effusion. RV/LV Diameter Ratio: Thoracic Aorta: Contrast timing is designed to evaluate the pulmonary arteries. The thoracic aorta has a normal contour. Contrast opacification of the aorta is suboptimal for evaluation of the lumen. Pulmonary Vessels: No large central pulmonary emboli are identified. Contrast timing is suboptimal for evaluation of more distal branches. Most Proximal Level of Embolus (if embolus present): Lungs and Airways: Patchy bilateral airspace opacities, predominantly within thebilateral lower lobes with bilateral lower lobe interlobar septal thickening. Small bilateral pleural effusion with atelectasis Pleura: No pleural effusion. No pneumothorax. Upper Abdomen: Visualized portions of the upper abdominal viscera are unremarkable. Bones: Mild degenerative changes of the thoracic spine. Ill-defined low attenuating lesion of the thyroid gland, please correlate with ultrasound. CT/CTA Chest W/WO Contrast IMPRESSION: NORMAL CHEST CTA. NO EVIDENCE OF ACUTE PULMONARY EMBOLISM. Patchy bilateral airspace opacities, concerning for infiltrates. Small bilateral pleural effusion with atelectasis. Ill-defined low attenuating lesion of the thyroid gland, please correlate with ultrasound. Reading Location: [facility] CC: Dr. Carlos Saleem MD; Dr. Margo Tatum DO ~ Imaging Scheduler: Signed [facility]04-06-2025 Radiology Diagnostic study note [facility] Imaging Services [address] [place] [address] Chest 1 View (Portable) MR#: [id number] Acct: [id number] Name: PITO HENDRIX Rep #: [id number] : 1970 F 53 From: Pet er Payton MASON PCP: Dr. Margo Tatum DO Status: REG ER Study:Chest 1 View (Portable) Date of Exam: 09/09/24 Exam# [id number] Ordering Dr: Carlos Saleem MD PROCEDURE: CHEST 1 VIEW (PORTABLE) 09/09/2024 REASON FOR EXAM: SHORTNESS OF BREATH TECHNIQUE: Frontal view of the chest. COMPARISON: None. FINDINGS: Hardware: Implanted cardiac device is present. Spinal nerve stimulator electrodes are seen in the lower thoracic spine Heart: Heart size is normal. Lungs: Hazy airspace opacities are seen in both lower lobes. Left hemidiaphragmis obscured and there is blunting of the left costophrenic angle and possibly the right costophrenic angle suggesting pleural effusions Bones: No aggressive bone lesions identified. Other: RAD/Chest 1 View (Portable) IMPRESSION: Suspect subtle pneumonia in the lower lobes. Reading Location: [facility] CC: Dr. Carlos Saleem MD; Dr. Margo Tatum DO ~ Imaging Scheduler: Signed [facility]01-08-2025 Evaluation note* Diagnosis Onset Date Resolution Status Admit Date Benign hypertension chronic 2024 3:07pm Hyperlipidemia chronic June 3:07pm Hyperthyroidism chronic June 132024 3:07pm Multiple thyroid nodules chronic June 13, 2024 3:07pm Obesity chronic June 13, 2 025 3:07pm Type 2 diabetes mellitus chronic June 13, 2024 3:07pm Chronic anticoagulation acute A pri2024 6:17pm Congestive heart failure (CHF) acute September 09, 2024 6:17pm Dyspnea acute September 09 6:17pm Elevated d-dimer acute September 6:17pm Hypoxia acute September 09 6:17pm Pacemaker acute September 09 6:17pm [facility] Work Phone: 1(364) 457-873301-08-2025 Evaluation note* Diagnosis Onset Date Resolution Status Admit Date Benign hypertension chronic 2024 3:07pm Hyperlipidemia chronic June 3:07pm Hyperthyroidism chronic June 132024 3:07pm Multiple thyroid nodules June 13, 2024 3:07pm Obesity chronic June 13, 2 025 3:07pm Type 2 diabetes mellitus chronic June 13, 2024 3:07pm Chronic anticoagulation acute A 2024 8:17pm Congestive heart failure (CHF) acute September 09, 2024 8:17pm Dyspnea acute September 09 8:17pm Elevated d-dimer acute September 8:17pm Hypoxia acute September 09 8:17pm Pacemaker acute September 09 8:17pm [facility] Work Phone: 1(856) 538-722601-08-2025 Evaluation note* Diagnosis Onset Date Resolution Status Admit Date Benign hypertension chronic 2024 3:07pm Hyperlipidemia chronic June 3:07pm Hyperthyroidism chronic June 132024 3:07pm Multiple thyroid nodules chronic June 13, 2024 3:07pm Obesity chronic June 13, 2 025 3:07pm Type 2 diabetes mellitus chronic June 13, 2024 3:07pm Congestive heart failure (CHF) resol syeda September 09, 2024 8:17pm Dyspnea resolved September 09 8:17pm Elevated d-dimer resolved September 8:17pm Hypoxia resolved September 09 8:17pm Chronic anticoagulation inactive A pri2024 8:17pm Pacemaker inactive September 09 8:17pm Benign hypertension chronic September 12, 2024 2:41pm Hyperlipidemia chronic September 12, 2024 2:41pm Hyperthyroidism chronic September 2:41pm Multiple thyroid nodules chronic September 12, 2024 2:41pm Obesity chronic September 12 2:41pm Uncontrolled type 2 diabetes mellitus chronic September 12, 2024 2:41pm Congestive heart failure (CHF) resol syeda September 12, 2024 2:41pm [facility] Work Phone: 1(429) 526-735308-16-2024 [facility]04-05-2024 Progress note Author Jamie Manrique [facility] September 09, 2023 6:11pm Note Date/Time September 09, 2023 4:00 pm [facility] Medical Records Department [address] [place] [address] Progress Note - Hospitalist 09/09/231599 MR#: [id number] Acct: [id number] Name: PITO HENDRIX KAYLIN Rep #:[id number] : 1970 52 From: Jamie nolasco DO PCP: Dr. Margo Tatum, DO Status:ADM IN Location: [place] [address] Reason for Visit Reason for Visit: Diagnoses Urinary tract infection, site not specified (09/06/23) Gross hematuria (09/06/23) custodial (current) use of anticoagulants (09/06/23) Subjective Subjective Patient had cystoscopy done yesterday afternoon with Dr. Short. I spoke with Dr. Short over the phone after the procedure and she noted that patient had extensive clots in the bladder as well as a hypervascular area of unclear etiology that she cauterized. She recommended restarting patient's Eliquis and Plavix this morning and monitoring patient for signs of recurrent bleeding. I saw patient at the bedside later in the morning. Patient was laying fairly comfortably in bed, in no acute distress. Stated that her abdominal pain was significantly improved from previous days. The Gaspar catheter had also been removed after procedure yesterday and patient states that she has been voiding on her own without issue since then. She has not noticed any significant blood with urination today. Patient does remain fearful about having recurrence of bleeding with restarting anticoagulation and she is agreeable to remaining in the hospital until tomorrow to monitor closely for signs of bleeding. She has no other acute concerns this morning. Objective Data Objective Data Vital Signs: Vital Signs Temp Pulse Resp BP Pulse Ox O2 Del Method O2 Flow Rate 98 F 75 16 119/64 99 Room Air 2 09/09/23 15:00 09/09/23 15:00 09/09/23 15:00 09/09/23 15:00 09/09/23 15:00 09/09/23 15:00 09/08/23 16:52 Oxygen Flow Rate (L/min) 2 Oxygen Delivery Method Room Air Weight: 94.9 kg Body Mass Index (BMI) 35.9 Intake & Output: Intake and Output for Last 24 Hours 09/07/23 09/08/23 09/09/23 23:59 23:59 23:59 Intake Total 1420 / 1420 240 / 240 Output Total 18199 / 13545 3000 / 3000 Balance -8780 / -8780 -2760 / -2760 Lab / Micro Data 09/09/23 16:15 09/09/23 06:05 Labs: Laboratory Results - last 24 hr 09/08/23 17:47: POC Glucose 114 H 09/08/23 21:41: POC Glucose 186 H 09/09/23 06:05: WBC 5.2, RBC 2.63 L, Hgb 8.4 L, Hct 26.2 L, MCV 99.6 H, MCH 31.9, MCHC 32.1, RDW Std Deviation 51.5 H, RDW Coeff of Tomi 14.6, Plt Count 191,MPV 10.4, Sodium 138, Potassium 3.7, Chloride 110 H, Carbon Dioxide 23.0, Anion Gap 5, BUN 21 H, Creatinine 0.68, Estim Creat Clear Calc 106.91, Est GFR (MDRD) Af Amer 116, Est GFR (MDRD) Non-Af 96, BUN/Creatinine Ratio 30.8 H, Glucose 158 H, Calcium 8.6 09/09/23 06:06: POC Glucose 158 H 09/09/23 11:10: POC Glucose 192 H Micro: Microbiology 09/06/23 12:40 Urine Catheter - Gaspar Urine Culture - Final Enterococcus faecalis Physical Exam Const alert and oriented x3 Constitutional Narrative: Pleasant middle-age female, obese, laying comfortably in bed, conversing normally, no acute distress. General Appearance: cooperative HEENT normocephalic, head/scalp atraumatic, hearing grossly normal bilaterally and nasal mucous membranes and turbinates normal Eyes PERRL, EOMs intact bilaterally and conjunctivae normal Neck full ROM Chest inspection of chest normal Resp normal respiratory effort, normal air movement, no use of accessory muscles and clear to auscultation bilaterally Cardio regular rate, regular rhythm, no murmurs and peripheral pulses 2+ throughout GI normal to inspection, nondistended, normoactive bowel sounds, soft to palpation,non-tender and non-distended no CVA tenderness Narrative: No suprapubic tenderness noted on exam. Catheter removed on 09/07, patient voiding on her own without issue. Bladder / Kidney Exam: catheter in place and bladder normal to palpation Back/Spine normal ROM Extremity normal to inspection, full ROM and no pedal edema Skin no rashes or lesions noted Neuro no focal motor deficits and no sensory deficits noted Speech: speech normal Psych mental status grossly normal Assessment & Plan Assessment/Plan (1) Gross hematuria: (2) Urinary tract infection: PLAN: Plan Patient is a 52-year-old female who presented to [facility] ED on 09/06/2023 with recurrent hematuria. 1. Recurrent gross hematuria with lower abdominal pain, acute blood loss anemiain setting of chronic anemia, concern for UTI Initially hospitalized at end of August with hematuria. CT abdomen pelvis at that time showed diffuse bladder wall thickening and pericecal fat stranding thought to be related to cystitis as well as possible asymmetric thickening of the right posterior lateral bladder wall. Urology followed at that time, was started on CBI and had improvement with this. Did not have cystoscopy done as she was anticoagulated with Eliquis and Plavix and would have needed and anticoagulant washout period prior to cystoscopy with biopsy. She was discharged home on 08/28 and unfortunately had recurrence of bleeding on 09/05 prompting readmission. Had three-way Gaspar catheter placed on admission with CBI started. Hemoglobin 10.2 on admit, was stable from hemoglobin 9-10 during previous hospitalization. CBI discontinued on morning of 09/06 by urology as it was causing the patient significant pain. ? Dr. Short with Urology following. S/p cystoscopy on 09/07, found to have significant amount of clot in the bladder as well as an area approximate 1.5 cm in diameter on the posterior bladder wall with an odd appearance of cystic lesions that was filled with blood. Urology noted that she had previously seen something like this in appearance. Several biopsies were taken of the area and the tissue was then fulgurated for hemostatic control and tissue treatment. Patient tolerated cystoscopy well. Gaspar catheter was removed after cystoscopy and patient has been voiding well on her own. Noted to have clear urine on 09/08. Restarted Eliquis and Plavix on morning of 09/08. Hemoglobin trend 7.7 (09/07) > 8.4 (09/08 AM) > 8.9 (/ PM). Follow-up CBC tomorrow morning. If hemoglobin remained stable and patient has no signs of bleeding, will plan for discharge home tomorrow afternoon. Continue Macrobid. Chronic medical conditions: ? Obesity: BMI 35 on admit. Complicates hospital course, care and prognosis. ? Paroxysmal A-fib and LBBB s/p CRTT-D placement: Follows with Dr. Ho, last office visit in 03/2023. Continue home carvedilol. Holding home Eliquis as noted above. ? History of ischemic cardiomyopathy with HFrEF, history of CAD s/p stenting: S/p BEATRICE x 1 to mLAD in 2020. Last echo in 12/2022 showed EF 45%, stage I diastolic dysfunction, EF improved from previous study, no significant valvular issues. Continue home Coreg, isosorbide mononitrate and atorvastatin. Holding home Plavix as noted above. Holding home Entresto, spironolactone, lasix and Farxiga for now as well. ? Type 2 diabetes mellitus: Home regimen of Lantus 30 units daily, Humalog 14 units with meals. Continue Lantus 30 units and Humalog 10 units with meals plussliding scale insulin that was started on admission, adjust as needed. ? Hyperthyroidism: Continue home methimazole. ? GERD: Continue home PPI. ? Anxiety: Continue BuSpar as needed. DVT prophylaxis: Eliquis CODE STATUS: Full code, verified Expected disposition: Home, 1 to 2 days Total clinical time spent by myself addressing the patient's medical issues, reviewing all the data, and collaborating with patient's care team: 35 minutes. Charges/Coding Visit Charges Inpatient E&M: 47795 Subs Hosp L2 09/09/23 1811 <Electronically signed by Jamie Manrique DO> Cosigner Signature (if applicable): CC: ~ Signed [facility] Work Phone: 1([phone]) 699-969804-05-2024 Progress note Author Berenice Short [facility] September 09, 2023 10:12am Note Date/Time September 09, 2023 10:1 2am [facility] Medical Records Department [address] [place] [address] Progress Note - Urology 09/09/23 1010 MR#: [id number] Acct: [id number] Name: PITO HENDRIX Rep #:[id number] : 1970 52 From: Berenice Wade PCP: Dr. Margo Tatum, Status:ADM IN Location: [place] [address] Subjective Subjective She is feeling so much better today. Her bladder spasms have resolved and she is voiding without complaints. There is no longer any gross hematuria. Objective Data Objective Data Vital Signs: Vital Signs Temp Pulse Resp BP Pulse Ox O2 Del Method O2 Flow Rate 98.1 F 73 16 109/63 98 Room Air 2 09/09/23 09:00 09/09/23 09:00 09/09/23 09:00 09/09/23 09:00 09/09/23 09:00 09/09/23 09:00 09/08/23 16:52 Oxygen Flow Rate (L/min) 2 Oxygen Delivery Method Room Air Weight: 94.9 kg Body Mass Index (BMI) 35.9 Intake & Output: Intake and Output for Last 24 Hours 09/07/23 09/08/23 09/09/23 23:59 23:59 23:59 Intake Total 1420 / 1420 240 / 240 Output Total 96479 / 12818 3000 / 3000 Balance -8780 / -8780 -2760 / -2760 Lab / Micro Data Attestation: I reviewed the patient's lab results. 09/09/23 06:05 09/09/23 06:05 Labs: Laboratory Results - last 24 hr 09/08/23 04:10: Iron 40 L, TIBC 286, Iron Saturation 14.0 L, Ferritin 71 09/08/23 11:27: POC Glucose 122 H 09/08/23 17:47: POC Glucose 114 H 09/08/23 21:41: POC Glucose 186 H 09/09/23 06:05: WBC 5.2, RBC 2.63 L, Hgb 8.4 L, Hct 26.2 L, MCV 99.6 H, MCH 31.9, MCHC 32.1, RDW Std Deviation 51.5 H, RDW Coeff of Tomi 14.6, Plt Count 191,MPV 10.4, Sodium 138, Potassium 3.7, Chloride 110 H, Carbon Dioxide 23.0, Anion Gap 5, BUN 21 H, Creatinine 0.68, Estim Creat Clear Calc 106.91, Est GFR (MDRD) Af Amer 116, Est GFR (MDRD) Non-Af 96, BUN/Creatinine Ratio 30.8 H, Glucose 158 H, Calcium 8.6 09/09/23 06:06: POC Glucose 158 H Micro: Microbiology 09/06/23 12:40 Urine Catheter - Gaspar Urine Culture - Final Enterococcus faecalis Physical Exam Narrative The patient was walking about her room and had just voided. Clear urine was in the toilet without clots. Const alert, oriented x3 and no apparent distress HEENT normocephalic and head/scalp atraumatic Eyes General Eye: normal appearance of both eyes Neck General: normal visual inspection and trachea midline Chest inspection of chest normal Resp normal respiratory effort Cardio regular rate GI soft to palpation Narrative: Urine is clear, no Gaspar catheter Assessment & Plan Assessment/Plan (1) Gross hematuria: PLAN: Okay to restart anticoagulation therapy today As long as urine remains clear, okay to discharge home from standpoint She will follow-up with me next week to discuss the biopsy results Please discharge home on Macrobid to complete a 7-day course for the Enterococcus culture (2) Urinary tract infection: 09/09/23 1012 <Electronically signed by Berenice Short MD> Cosigner Signature (if applicable): CC: ~ Signed [facility] Work Phone: 1(433) 493-384604-04-2024 Progress note Author Jamie Manrique [facility] September 08, 2023 1:59pm Note Date/Time September 08, 2023 12:1 8pm [facility] Medical Records Department [address] [place] [address] Progress Note - Hospitalist 09/08/23 1217 MR#: [id number] Acct: [id number] Name: PITO HENDRIX Rep #:[id number] : 1970 52 From: Jamie nolasco DO PCP: Dr. Margo Tatum, DO Status:ADM IN Location: ICU CVICU20 4-1 Reason for Visit Reason for Visit: Diagnoses Urinary tract infection, site not specified (09/06/23) Gross hematuria (09/06/23) custodial (current) use of anticoagulants (09/06/23) Subjective Subjective No acute events overnight. Patient seen at bedside this morning. Sitting up inbed, conversing normally. Appears to be in mild distress today due to lower abdominal pain, somewhat improved from yesterday. States that she continues to have mild to moderate pain but this pain is a bit improved. She is looking forward to having the procedure done with urology today. No other acute concerns at this time. Objective Data Objective Data Vital Signs: Vital Signs Temp Pulse Resp BP Pulse Ox O2 Del Method 97.6 F L 70 10 L 121/46 H 94 Room Air 09/08/23 09:36 09/08/23 09:36 09/08/23 09:36 09/08/23 09:36 09/08/23 09:36 09/08/23 09:36 Oxygen Delivery Method Room Air Weight: 94.9 kg Body Mass Index (BMI) 35.9 Intake & Output: Intake and Output for Last 24 Hours 09/06/23 09/07/23 09/08/23 23:59 23:59 23:59 Intake Total 50 / 50 1420 / 1420 Output Total 1999 / 1999 72316 / 67206 2200 / 2200 Balance -1950 / -1950 -8780 / -8780 -2200 / -2200 Lab / Micro Data 09/08/23 04:10 09/08/23 04:10 Labs: Laboratory Results - last 24 hr 09/07/23 16:05: POC Glucose 130 H 09/07/23 21:41: POC Glucose 167 H 09/08/23 04:10: WBC 5.0, RBC 2.46 L, Hgb 7.7 L, Hct 24.2 L, MCV 98.4, MCH 31.3, MCHC 31.8 L, RDW Std Deviation 51.8 H, RDW Coeff of Tomi 14.6, Plt Count 167, MPV9.9, Sodium 139, Potassium 4.2, Chloride 111 H, Carbon Dioxide 23.0, Anion Gap 5, BUN 21 H, Creatinine 0.68, Estim Creat Clear Calc 106.91, Est GFR (MDRD) Af Amer 117, Est GFR (MDRD) Non-Af 96, BUN/Creatinine Ratio 31.0 H, Glucose 171 H, Calcium 8.3 L 09/08/23 06:40: POC Glucose 141 H 09/08/23 11:27: POC Glucose 122 H Micro: Microbiology 09/06/23 12:40 Urine Catheter - Gaspar Urine Culture - Final Enterococcus faecalis Physical Exam Const alert and oriented x3 Constitutional Narrative: Pleasant middle-age female, obese, sitting up in bed, mildly uncomfortable appearing due to bladder pain but improved from admission, otherwise conversing normally. General Appearance: cooperative HEENT normocephalic, head/scalp atraumatic, hearing grossly normal bilaterally and nasal mucous membranes and turbinates normal Eyes PERRL, EOMs intact bilaterally and conjunctivae normal Neck full ROM Chest inspection of chest normal Resp normal respiratory effort, normal air movement, no use of accessory muscles and clear to auscultation bilaterally Cardio regular rate, regular rhythm, no murmurs and peripheral pulses 2+ throughout GI normal to inspection, nondistended, normoactive bowel sounds, soft to palpation,non-tender and non-distended no CVA tenderness Narrative: No suprapubic tenderness noted on exam. Catheter in place and draining dark redurine. Bladder / Kidney Exam: catheter in place and bladder normal to palpation Back/Spine normal ROM Extremity normal to inspection, full ROM and no pedal edema Skin no rashes or lesions noted Neuro no focal motor deficits and no sensory deficits noted Speech: speech normal Psych mental status grossly normal Assessment & Plan Assessment/Plan (1) Gross hematuria: (2) Urinary tract infection: PLAN: Plan Patient is a 52-year-old female who presented to [facility] ED on 09/06/2023 with recurrent hematuria. 1. Recurrent gross hematuria with lower abdominal pain, acute blood loss anemiain setting of chronic anemia, concern for UTI Initially hospitalized at end of August with hematuria. CT abdomen pelvis at that time showed diffuse bladder wall thickening and pericecal fat stranding thought to be related to cystitis as well as possible asymmetric thickening of the right posterior lateral bladder wall. Urology followed at that time, was started on CBI and had improvement with this. Did not have cystoscopy done as she was anticoagulated with Eliquis and Plavix and would have needed and anticoagulant washout period prior to cystoscopy with biopsy. She was discharged home on 08/28 and unfortunately had recurrence of bleeding on 09/05 prompting readmission. Had three-way Gaspar catheter placed on admission with CBI started. Hemoglobin 10.2 on admit, was stable from hemoglobin 9-10 during previous hospitalization. CBI discontinued on morning of 09/06 by urology as it was causing the patient significant pain. ? Urology following. Planning for cystoscopy with bladder biopsy this afternoon, will follow-up results. Continue to hold Eliquis and Plavix, will defer to urology on timing of restarting. Continue Macrobid and oxybutynin thatwere started on admission. Continue IV morphine and p.o. oxycodone as needed for pain control. Hemoglobin slowly downtrending, most recent hemoglobin 7.7 on09/07. Continue to trend CBC daily. Iron studies ordered. Chronic medical conditions: ? Obesity: BMI 35 on admit. Complicates hospital course, care and prognosis. ? Paroxysmal A-fib and LBBB s/p CRTT-D placement: Follows with Dr. Ho, last office visit in 03/2023. Continue home carvedilol. Holding home Eliquis as noted above. ? History of ischemic cardiomyopathy with HFrEF, history of CAD s/p stenting: S/p BEATRICE x 1 to mLAD in 2020. Last echo in 12/2022 showed EF 45%, stage I diastolic dysfunction, EF improved from previous study, no significant valvular issues. Continue home Coreg, isosorbide mononitrate and atorvastatin. Holding home Plavix as noted above. Holding home Entresto, spironolactone, lasix and Farxiga for now as well. ? Type 2 diabetes mellitus: Home regimen of Lantus 30 units daily, Humalog 14 units with meals. Continue Lantus 30 units and Humalog 10 units with meals plussliding scale insulin that was started on admission, adjust as needed. ? Hyperthyroidism: Continue home methimazole. ? GERD: Continue home PPI. ? Anxiety: Continue BuSpar as needed. DVT prophylaxis: SCDs CODE STATUS: Full code, verified Expected disposition: Home, TBD Total clinical time spent by myself addressing the patient's medical issues, reviewing all the data, and collaborating with patient's care team: 35 minutes. Charges/Coding Visit Charges Inpatient E&M: 11834 Subs Hosp L2 09/08/23 1359 <Electronically signed by Jamie Manrique DO> Cosigner Signature (if applicable): CC: ~ Signed [facility] Work Phone: [phone]) 763-678304-04-2024 [facility] Progress note Author Jamie [facility] September 07, 2023 4:03pm Note Date/Time September 07, 2023 12:2 0pm [facility] Medical Records Department [address] [place] [address] Progress Note - Hospitalist 09/07/23 1220 MR#: [id number] Acct: [id number] Name: PITO HENDRIX KAYLIN Rep #:[id number] : 1970 52 From: Jamie nolasco DO PCP: Dr. Margo Tatum DO Status:ADM IN Location: ICU CVICU20 4-1 Reason for Visit Reason for Visit: Diagnoses Gross hematuria (09/06/23) Subjective Subjective Patient admitted yesterday afternoon for acute onset hematuria. Had three-way catheter in place with continuous bladder irrigation running overnight. Nursingnoted this morning that Dr. Short had been in to see the patient prior to my encounter with her, and continuous bladder irrigation was stopped as it was causing significant pain for the patient. I saw the patient at the bedside later in the morning. Patient was sitting up in bed but did appear moderately uncomfortable due to continued bladder pain. Stated that the IV morphine and IVToradol had been fairly helpful for her but when they wore off she had significant pain. Catheter remained in place and she had dark red output in thecatheter bag. She otherwise denied any acute concerns. Objective Data Objective Data Vital Signs: Vital Signs Temp Pulse Resp BP Pulse Ox O2 Del Method 97.9 F 83 16 162/78 H 98 Room Air 09/07/23 09:30 09/07/23 09:30 09/07/23 09:30 09/07/23 09:30 09/07/23 09:30 09/07/23 09:30 Oxygen Delivery Method Room Air Weight: 94.9 kg Body Mass Index (BMI) 35.9 Intake & Output: Intake and Output for Last 24 Hours 09/05/23 09/06/23 09/07/23 23:59 23:59 23:59 Intake Total 50 / 50 100 / 100 Output Total 1999 Balance -1950 / -1950 -1900 / -1900 Lab / Micro Data 09/07/23 10:26 09/07/23 03:20 Labs: Laboratory Results - last 24 hr 09/06/23 12:30: WBC 7.0, RBC 3.17 L, Hgb 10.2 L, Hct 31.1 L, MCV 98.1, MCH 32.2 H, MCHC 32.8, RDW Std Deviation 51.8 H, RDW Coeff of Tomi 14.8 H, Plt Count 220, MPV 9.8, Immature Gran % (Auto) 0.300, Neut % (Auto) 66.9, Lymph % (Auto) 24.9, [place] % (Auto) 7.2, Eos % (Auto) 0.6, Baso % (Auto) 0.1, Absolute Neuts (auto) 4.7, Absolute Lymphs (auto) 1.73, Nucleated RBC % 0, PT 15.1 H, INR 1.2, Sodium 137, Potassium 3.9, Chloride 110 H, Carbon Dioxide 20.0 L, Anion Gap 7, BUN 30 H, Creatinine 0.84, Estim Creat Clear Calc 86.50, Est GFR (MDRD) Af Amer 90, Est GFR (MDRD) Non-Af 75, BUN/Creatinine Ratio 35.5 H, Glucose 169 H, Calcium 8.5 09/06/23 12:40: Urine Color Red, Urine Clarity Turbid, Urine pH 7.0, Ur SpecificGravity 1.010, Urine Protein 500 H, Urine Glucose (UA) 250 H, Urine Ketones Negative, Urine Occult Blood 250 H, Urine Nitrite Negative, Urine Bilirubin Negative, Urine Urobilinogen Normal, Ur Leukocyte Esterase Negative, Urine RBC 50-100 SEEN, Urine WBC 0 SEEN, Ur Squamous Epith Cells 0 SEEN, Urine Bacteria 0 SEEN, Urine Mucus 0 SEEN 09/06/23 20:19: POC Glucose 161 H 09/07/23 03:20: WBC 5.9, RBC 2.59 L, Hgb 8.2 L, Hct 25.8 L, MCV 99.6 H, MCH 31.7, MCHC 31.8 L, RDW Std Deviation 53.1 H, RDW Coeff of Tomi 14.8 H, Plt Count 183, MPV 9.8, Immature Gran % (Auto) 0.500, Neut % (Auto) 56.1, Lymph % (Auto) 34.1, [place] % (Auto) 8.1, Eos % (Auto) 1.0, Baso % (Auto) 0.2, Absolute Neuts (auto) 3.3, Absolute Lymphs (auto) 2.01, Nucleated RBC % 0, Sodium 140, Potassium 4.0, Chloride 110 H, Carbon Dioxide 26.0, Anion Gap 4 L, BUN 28 H, Creatinine 0.78, Estim Creat Clear Calc 93.20, Est GFR (MDRD) Af Amer 98, Est GFR (MDRD) Non-Af 81, BUN/Creatinine Ratio 35.7 H, Glucose 152 H, Calcium 8.3 L 09/07/23 08:25: POC Glucose 122 H 09/07/23 10:26: WBC 6.7, RBC 2.60 L, Hgb 8.4 L, Hct 25.4 L, MCV 97.7, MCH 32.3 H, MCHC 33.1, RDW Std Deviation 50.8 H, RDW Coeff of Tomi 14.6, Plt Count 189, MPV9.8 09/07/23 11:33: POC Glucose 128 H Micro: Microbiology 09/06/23 12:40 Urine Catheter - Gaspar Urine Culture - Preliminary GPC Poss Enterococcus sp Physical Exam Const alert and oriented x3 Constitutional Narrative: Pleasant middle-age female, obese, sitting up in bed, moderately uncomfortable appearing due to continued bladder pain, otherwise conversing normally. General Appearance: cooperative HEENT normocephalic, head/scalp atraumatic, hearing grossly normal bilaterally and nasal mucous membranes and turbinates normal Eyes PERRL, EOMs intact bilaterally and conjunctivae normal Neck full ROM Chest inspection of chest normal Resp normal respiratory effort, normal air movement, no use of accessory muscles and clear to auscultation bilaterally Cardio regular rate, regular rhythm, no murmurs and peripheral pulses 2+ throughout GI normal to inspection, nondistended, normoactive bowel sounds, soft to palpation,non-tender and non-distended no CVA tenderness Narrative: No suprapubic tenderness noted on exam. Catheter in place and draining dark redurine. Bladder / Kidney Exam: catheter in place and bladder normal to palpation Back/Spine normal ROM Extremity normal to inspection, full ROM and no pedal edema Skin no rashes or lesions noted Neuro no focal motor deficits and no sensory deficits noted Speech: speech normal Psych mental status grossly normal Assessment & Plan Assessment/Plan (1) Gross hematuria: (2) Urinary tract infection: PLAN: Plan Patient is a 52-year-old female who presented to [facility] ED on 09/06/2023 with recurrent hematuria. 1. Recurrent gross hematuria with lower abdominal pain, acute blood loss anemiain setting of chronic anemia, concern for UTI Initially hospitalized at end of August with hematuria. CT abdomen pelvis at that time showed diffuse bladder wall thickening and pericecal fat stranding thought to be related to cystitis as well as possible asymmetric thickening of the right posterior lateral bladder wall. Urology followed at that time, was started on CBI and had improvement with this. Did not have cystoscopy done as she was anticoagulated with Eliquis and Plavix and would have needed and anticoagulant washout period prior to cystoscopy with biopsy. She was discharged home on 08/28 and unfortunately had recurrence of bleeding on 09/05 prompting readmission. Had three-way Gaspar catheter placed on admission with CBI started. Hemoglobin 10.2 on admit, was stable from hemoglobin 9-10 during previous hospitalization. ? Urology following. CBI discontinued on morning of 09/06 as it was causing the patient significant pain. Continue to hold Eliquis and Plavix. Macrobid added on 09/06 for presumed Enterococcus despite less than 1000 colony growth. Oxybutynin added on 09/06 for bladder spasm control. Continue IV morphine and p.o. oxycodone as needed for pain control. N.p.o. at midnight with plan for cystoscopy and bladder biopsy if urine remains bloody tomorrow. Repeat hemoglobin 8.2 on 09/06, rechecked and remained 8.4. Trend CBC daily. Chronic medical conditions: ? Obesity: BMI 35 on admit. Complicates hospital course, care and prognosis. ? Paroxysmal A-fib and LBBB s/p CRTT-D placement: Follows with Dr. Ho, last office visit in 03/2023. Continue home carvedilol. Holding home Eliquis as noted above. ? History of ischemic cardiomyopathy with HFrEF, history of CAD s/p stenting: S/p BEATRICE x 1 to mLAD in 2020. Last echo in 12/2022 showed EF 45%, stage I diastolic dysfunction, EF improved from previous study, no significant valvular issues. Continue home Coreg, isosorbide mononitrate and atorvastatin. Holding home Plavix as noted above. Holding home Entresto, spironolactone, lasix and Farxiga for now as well. ? Type 2 diabetes mellitus: Home regimen of Lantus 30 units daily, Humalog 14 units with meals. Continue Lantus 30 units and Humalog 10 units with meals plus sliding scale insulin that was started on admission, adjust as needed. ? Hyperthyroidism: Continue home methimazole. ? GERD: Continue home PPI. ? Anxiety: Continue BuSpar as needed. DVT prophylaxis: SCDs CODE STATUS: Full code, verified Expected disposition: Home, TBD Total clinical time spent by myself addressing the patient's medical issues, reviewing all the data, and collaborating with patient's care team: 35 minutes. Charges/Coding Visit Charges Inpatient E&M: 60242 Subs Hosp L2 09/07/23 1601 <Electronically signed by Jamie Manrique DO> Cosigner Signature (if applicable): CC: ~ Signed [facility] Work Phone: 1(354) 295-731704-03-2024 Consult note Author Berenice Short [facility] September 07, 2023 12:55pm Note Date/Time September 07, 2023 12:5 5pm [facility] Medical Records Department [address] [place] [address] Consultation 09/07/23 1246 MR#: [id number] Acct: [id number] Name: PITO HENDRIX KAYLIN Rep #:[id number] : 1970 52 From: Berenice Wade PCP: Dr. Margo Tatum DO Status:ADM IN Location: ICU CVICU20 4-1 Assessment & Plan Assessment/Plan (1) Gross hematuria: (2) Anticoagulated: PLAN: Plan Continuous bladder irrigation, titrate to off as possible Add Macrobid for presumed Enterococcus despite less than 1000 colony growth N.p.o. after midnight tonight Add oxybutynin for bladder spasm control If she remains bloody tomorrow, my plan is to proceed with cystoscopy and careful biopsy with cautery. HPI Consult Data Date of Consult: 09/07/23 HPI Narrative Reason for Consultation: gross hematuria HPI Narrative: PITO HENDRIX, is a 52 F who presents with recurrent gross hematuria. She was admitted to the hospital at the end of August with hematuria. She was sent home without a Gaspar catheter and the blood returned along with painful bladder spasms yesterday at home. During that admission she had a positive urine culture and was treated for the infection and she also was found to have an abnormal thickening of the bladder wall suspicious for mass. A cystoscopy has yet to be done. She is aware that I do not manage urologic malignancy. She will definitely need a cystoscopy with bladder biopsy for further assessment andmanagement. I would like to refer her to another urologist, there is no one else available here as an inpatient for her to see. The plan will be if her urine clears by tomorrow, we will discharge her home with plans to follow-up with another urologist. If the urine remains bloody, I will proceed with cystoscopy, fulguration and bladder biopsy. The patient understands and agrees. [facility] Medical History Atherosclerotic heart disease of [place] coronary artery without angina pectoris Atrial fibrillation Benign hypertension Cardiomyopathy, ischemic Chronic low back pain Chronic nausea COPD (chronic obstructive pulmonary disease) Coronary artery disease COVID-19 virus infection Diabetes Difficult intubation Former smoker HFrEF (heart failure with reduced ejection fraction) Hirsutism History of non-ST elevation myocardial infarction (NSTEMI) (09/08/21) Hyperglycemia due to type 2 diabetes mellitus Hyperlipidemia Hypertension Hyperthyroidism Irregular heart beat Kidney stones Left bundle branch block (LBBB) Myocardial infarct Non-ischemic cardiomyopathy Non-ST elevation (NSTEMI) myocardial infarction Obesity Paroxysmal atrial fibrillation Presence of cardiac 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 therapy defibrillator (CRTT-D) Seizures Syncope Thyroid nodule Type 2 diabetes mellitus Vomiting Home Medications BD Ultra-Fine [place] Pen Needle 32 gauge x (pen needle, diabetic) #100 ea 07/29/22 [Rx Last Taken Unknown] diphenhydramine HCl 25 mg tablet 25 mg PO Q4H PRN PRN Allergy Symptoms 08/06/22 [History Last Taken Unknown] hydrocodone-acetaminophen 5-325mg 5mg-325mg 1 tab PO Q8H PRN Check with primary doctor 08/06/22 [History Last Taken 08/06/22 10:00] naloxegol 25 mg tablet (Movantik) 25 mg PO QAM PRN Check with primary doctor 08/06/22 [History Last Taken Unknown] omeprazole magnesium 20 mg tablet,delayed release (Prilosec OTC) 20 mg PO DAILY Check with primary doctor 08/06/22 [History Last Taken Unknown] promethazine 25 mg tablet 25 mg PO TID PRN PRN Nausea And Vomiting 08/06/22 [History Last Taken Unknown] tizanidine 4 mg tablet 4 mg PO QHS 08/06/22 [History Last Taken 08/05/22] dapagliflozin propanediol 10 mg tablet (Farxiga) 10 mg PO DAILY 10/20/22 [History Last Taken Unknown] ibuprofen 200 mg tablet 200 mg PO Q6H PRN fever or pain 10/20/22 [History Last Taken Unknown] insulin glargine 100 unit/mL (3 mL) subcutaneous pen (Lantus Solostar U-100 Insulin) 30 unit subcut DAILY Check with primary doctor 10/20/22 [History Last Taken Unknown] insulin lispro 100 unit/mL subcutaneous pen (Humalog KwikPen (U-100) Insulin) 14unit subcut TIDCM Check with primary doctor 10/20/22 [History Last Taken Unknown] sacubitril 97 mg-valsartan 103 mg tablet (Entresto) 1 tab PO BID 10/20/22 [History Last Taken Unknown] flash glucose sensor (FreeStyle Sanam 2 Sensor kit) #2 ea 03/02/23 [Rx Last Taken Unknown] cholecalciferol (vitamin D3) 50 mcg (2,000 unit) capsule 1,000 unit PO DAILY 03/08/23 [History Last Taken Unknown] spironolactone 50 mg tablet 50 mg PO DAILY #90 tabs 03/08/23 [Rx Last Taken Unknown] carvedilol 25 mg tablet 25 mg PO BID Check with primary doctor #180 tabs 03/10/23 [Rx Last Taken Unknown] glipizide 10 mg tablet, extended release 24 hr 10 mg PO BID diabetes #180 tabs 03/14/23 [Rx Last Taken Unknown] methimazole 10 mg tablet 10 mg PO DAILY #90 tabs 03/14/23 [Rx Last Taken Unknown] clopidogrel 75 mg tablet (Plavix) 75 mg PO DAILY #90 tabs 05/16/23 [Rx Last Taken Unknown] apixaban 5 mg tablet (Eliquis) See Rx Instructions .Route .COMPLEX #180 tabs 05/31/23 [Rx Last Taken Unknown] atorvastatin 80 mg tablet See Rx Instructions .Route .COMPLEX #360 TABLETS 06/09/23 [Rx Last Taken Unknown] isosorbide mononitrate 30 mg tablet,extended release 24 hr See Rx Instructions .Route .COMPLEX #360 TABLETS 06/09/23 [Rx Last Taken Unknown] furosemide 40 mg tablet See Rx Instructions .Route .COMPLEX #90 TABLETS 07/04/23[Rx Last Taken Unknown] dulaglutide 1.5 mg/0.5 mL subcutaneous pen injector (Trulicity) 1.5 mg (0.5 mL) subcut QWEEK #2 mL 08/11/23 [Rx Last Taken Unknown] flash glucose scanning reader (Typeform Sanam 2 [place]) #1 ea 08/11/23 [Rx Last Taken Unknown] Allergy/AdvReac Type Severity Reaction Status Date / Time amoxicillin trihydrate AdvReac Vomiting Verified 09/06/23 11:43 [From Augmentin] potassium clavulanate AdvReac Vomiting Verified 09/06/23 11:43 [From Augmentin] Family History Father Myocardial infarction Cancer prostate, leukemia Agent orange exposure Diabetes Sister Diabetes COPD (chronic obstructive pulmonary disease) Mother CVA (cerebral vascular accident) Hypertension Surgical History History of appendectomy History of back surgery History of cholecystectomy (1991) History of cholecystectomy History of coronary artery stent placement (05/19/21) History of hysterectomy History of laparoscopy History of left heart catheterization (09/14/21) History of tonsillectomy Status post insertion of nerve stimulator Social History household members: significant other Smoking Status: Former smoker how long ago did patient quit smoking: Quit 1990, smoke 2 ppd since teen until quit. alcohol intake: current alcohol intake frequency: holidays/special occasions only substance use type: does not use caffeine: Yes ROS Constitutional Constitutional: Denies anorexia, chills or fever(s) Eyes Eyes: Reports systems reviewed and no addt'l complaints, except as documented ENT HEENT: Reports systems reviewed and no addt'l complaints, except as documented Cardiovascular Cardiovascular: Denies chest pain, diaphoresis or dyspnea Respiratory/Chest Respiratory/Chest: Denies cough, dyspnea or inability to speak Gastrointestinal Gastrointestinal: Reports abdominal pain and cramping; Denies nausea Genitourinary Genitourinary: Reports abdominal discomfort, contractions, difficulty urinating,hematuria and urinary urgency Musculoskeletal Musculoskeletal: Reports systems reviewed and no addt'l complaints, except as documented Integumentary Integumentary: Reports systems reviewed and no addt'l complaints, except as documented Neurologic Neurologic: Reports systems reviewed and no addt'l complaints, except as documented Psychiatric Psychiatric: Reports systems reviewed and no addt'l complaints, except as documented Endocrine Endocrinology: Reports systems reviewed and no addt'l complaints, except as documented Hematologic/Lymphatic Hematologic/Lymphatic: Reports systems reviewed and no addt'l complaints, exceptas documented Allergic/Immunologic Allergic/Immunologic: Reports systems reviewed and no addt'l complaints, except as documented Physical Exam Const alert, oriented x3 and no apparent distress Constitutional Narrative: She is comfortable until she starts having bladder spasms. General Appearance: cooperative, comfortable, well kempt and well developed HEENT normocephalic, head/scalp atraumatic, hearing grossly normal bilaterally, external nose normal and moist oral mucous membranes Eyes General Eye: normal appearance of both eyes Neck supple General: normal visual inspection Lymph Lymphatic: no lymphedema noted Chest inspection of chest normal Resp normal respiratory effort, normal air movement and no retractions Cardio regular rate GI soft to palpation, non-tender and non-distended Narrative: She has a 24 [place] three-way Gaspar catheter indwelling. Continuous bladder irrigation clears very quickly and easily. I personally manually irrigated her for 1 small clot. Bladder / Kidney Exam: catheter in place Back/Spine no CVA tenderness Extremity normal to inspection Skin no rashes or lesions noted, no wounds and skin turgor normal Neuro oriented x3, CN's II-XII intact bilaterally and moves all extremities Psych mental status grossly normal, thought process normal and cooperative Lab / Micro Data Attestation: I reviewed the patient's lab results. Lab results narrative: Her hemoglobin is stable. 09/07/23 10:26 09/07/23 03:20 Labs: Laboratory Results - last 24 hr 09/06/23 12:30: WBC 7.0, RBC 3.17 L, Hgb 10.2 L, Hct 31.1 L, MCV 98.1, MCH 32.2 H, MCHC 32.8, RDW Std Deviation 51.8 H, RDW Coeff of Tomi 14.8 H, Plt Count 220, MPV 9.8, Immature Gran % (Auto) 0.300, Neut % (Auto) 66.9, Lymph % (Auto) 24.9, [place] % (Auto) 7.2, Eos % (Auto) 0.6, Baso % (Auto) 0.1, Absolute Neuts (auto) 4.7, Absolute Lymphs (auto) 1.73, Nucleated RBC % 0, PT 15.1 H, INR 1.2, Sodium 137, Potassium 3.9, Chloride 110 H, Carbon Dioxide 20.0 L, Anion Gap 7, BUN 30 H, Creatinine 0.84, Estim Creat Clear Calc 86.50, Est GFR (MDRD) Af Amer 90, Est GFR (MDRD) Non-Af 75, BUN/Creatinine Ratio 35.5 H, Glucose 169 H, Calcium 8.5 09/06/23 12:40: Urine Color Red, Urine Clarity Turbid, Urine pH 7.0, Ur SpecificGravity 1.010, Urine Protein 500 H, Urine Glucose (UA) 250 H, Urine Ketones Negative, Urine Occult Blood 250 H, Urine Nitrite Negative, Urine Bilirubin Negative, Urine Urobilinogen Normal, Ur Leukocyte Esterase Negative, Urine RBC 50-100 SEEN, Urine WBC 0 SEEN, Ur Squamous Epith Cells 0 SEEN, Urine Bacteria 0 SEEN, Urine Mucus 0 SEEN 09/06/23 20:19: POC Glucose 161 H 09/07/23 03:20: WBC 5.9, RBC 2.59 L, Hgb 8.2 L, Hct 25.8 L, MCV 99.6 H, MCH 31.7, MCHC 31.8 L, RDW Std Deviation 53.1 H, RDW Coeff of Tomi 14.8 H, Plt Count 183, MPV 9.8, Immature Gran % (Auto) 0.500, Neut % (Auto) 56.1, Lymph % (Auto) 34.1, [place] % (Auto) 8.1, Eos % (Auto) 1.0, Baso % (Auto) 0.2, Absolute Neuts (auto) 3.3, Absolute Lymphs (auto) 2.01, Nucleated RBC % 0, Sodium 140, Potassium 4.0, Chloride 110 H, Carbon Dioxide 26.0, Anion Gap 4 L, BUN 28 H, Creatinine 0.78, Estim Creat Clear Calc 93.20, Est GFR (MDRD) Af Amer 98, Est GFR (MDRD) Non-Af 81, BUN/Creatinine Ratio 35.7 H, Glucose 152 H, Calcium 8.3 L 09/07/23 08:25: POC Glucose 122 H 09/07/23 10:26: WBC 6.7, RBC 2.60 L, Hgb 8.4 L, Hct 25.4 L, MCV 97.7, MCH 32.3 H, MCHC 33.1, RDW Std Deviation 50.8 H, RDW Coeff of Tomi 14.6, Plt Count 189, MPV9.8 09/07/23 11:33: POC Glucose 128 H Micro: Microbiology 09/06/23 12:40 Urine Catheter - Gaspar Urine Culture - Preliminary GPC Poss Enterococcus sp 09/07/23 1255 <Electronically signed by Berenice Short MD> Cosigner Signature (if applicable): CC: Dr. Berenice Short MD; Dr. Margo Tatum DO; Dr. Navdeep Bourgeois MD~ Signed [facility] Work Phone: [phone]) 976-703504-02-2024 History and physical note Author Navdeep Bourgeois [facility] September 06, 2023 5:32pm Note Date/Time September 06, 2023 5:32 pm [facility] Medical Records Department [address] [place] [address] H&P Exam - Hospitalist 09/06/23 1637 MR#: [id number] Acct: [id number] Name: PITO HENDRIX [facility] Rep #:[id number] : 1970 52 From: Navdeep Wade PCP: Dr. Margo Tatum, DO Status:REG ER Location: ED HPI - General General Date of Admission: 09/06/23 Date of Service: 09/06/23 Chief Complaint: Sudden onset of hematuria today in the morning. HPI Narrative PITO HENDRIX, is a 52 F who was recently admitted between 08/25 to 08/28 for hematuria with urine retention came back with similar problem sudden onset of hematuria in the morning today. In the triage note it is wrongly mentioned vaginal bleeding but patient had hysterectomy in 2003 and denies vaginal bleeding. Patient is stated that she had stefani dark red blood in the morning today. She denies burning pain but he states he feels pressure over suprapubic region. Increases with movement of the catheter. Patient is states he has beenpassing blood clots and probably pain increases with passing clots. Patient wasseen by urologist Dr. Campoverde but she does not want to see him and requested a different urologist therefore Dr. Short consulted. Patient has triple-lumen Gaspar catheter. Patient is on Plavix and Eliquis. UA shows 50-100 cells but no WBC. Negative nitrite and leukocyte esterase. H&H10.2/31% which is further PFSH Medical History Atherosclerotic heart disease of [place] coronary artery without angina pectoris Atrial fibrillation Benign hypertension Cardiomyopathy, ischemic Chronic low back pain Chronic nausea COPD (chronic obstructive pulmonary disease) Coronary artery disease COVID-19 virus infection Diabetes Difficult intubation Former smoker HFrEF (heart failure with reduced ejection fraction) Hirsutism History of non-ST elevation myocardial infarction (NSTEMI) (09/08/21) Hyperglycemia due to type 2 diabetes mellitus Hyperlipidemia Hypertension Hyperthyroidism Irregular heart beat Kidney stones Left bundle branch block (LBBB) Myocardial infarct Non-ischemic cardiomyopathy Non-ST elevation (NSTEMI) myocardial infarction Obesity Paroxysmal atrial fibrillation Presence of cardiac 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 therapy defibrillator (CRTT-D) Seizures Syncope Thyroid nodule Type 2 diabetes mellitus Vomiting Home Medications BD Ultra-Fine [place] Pen Needle 32 gauge x /32 (pen needle, diabetic) #100 ea 07/29/22 [Rx Last Taken Unknown] diphenhydramine HCl 25 mg tablet 25 mg PO Q4H PRN PRN Allergy Symptoms 08/06/22 [History Last Taken Unknown] hydrocodone-acetaminophen 5-325mg 5mg-325mg 1 tab PO Q8H PRN Check with primary doctor 08/06/22 [History Last Taken 08/06/22 10:00] naloxegol 25 mg tablet (Movantik) 25 mg PO QAM PRN Check with primary doctor 08/06/22 [History Last Taken Unknown] omeprazole magnesium 20 mg tablet,delayed release (Prilosec OTC) 20 mg PO DAILY Check with primary doctor 08/06/22 [History Last Taken Unknown] promethazine 25 mg tablet 25 mg PO TID PRN PRN Nausea And Vomiting 08/06/22 [History Last Taken Unknown] tizanidine 4 mg tablet 4 mg PO QHS 08/06/22 [History Last Taken 08/05/22] dapagliflozin propanediol 10 mg tablet (Farxiga) 10 mg PO DAILY 10/20/22 [History Last Taken Unknown] ibuprofen 200 mg tablet 200 mg PO Q6H PRN fever or pain 10/20/22 [History Last Taken Unknown] insulin glargine 100 unit/mL (3 mL) subcutaneous pen (Lantus Solostar U-100 Insulin) 30 unit subcut DAILY Check with primary doctor 10/20/22 [History Last Taken Unknown] insulin lispro 100 unit/mL subcutaneous pen (Humalog KwikPen (U-100) Insulin) 14unit subcut TIDCM Check with primary doctor 10/20/22 [History Last Taken Unknown] sacubitril 97 mg-valsartan 103 mg tablet (Entresto) 1 tab PO BID 10/20/22 [History Last Taken Unknown] flash glucose sensor (FreeStyle Sanam 2 Sensor kit) #2 ea 03/02/23 [Rx Last Taken Unknown] cholecalciferol (vitamin D3) 50 mcg (2,000 unit) capsule 1,000 unit PO DAILY 03/08/23 [History Last Taken Unknown] spironolactone 50 mg tablet 50 mg PO DAILY #90 tabs 03/08/23 [Rx Last Taken Unknown] carvedilol 25 mg tablet 25 mg PO BID Check with primary doctor #180 tabs 03/10/23 [Rx Last Taken Unknown] glipizide 10 mg tablet, extended release 24 hr 10 mg PO BID diabetes #180 tabs 03/14/23 [Rx Last Taken Unknown] methimazole 10 mg tablet 10 mg PO DAILY #90 tabs 03/14/23 [Rx Last Taken Unknown] clopidogrel 75 mg tablet (Plavix) 75 mg PO DAILY #90 tabs 05/16/23 [Rx Last Taken Unknown] apixaban 5 mg tablet (Eliquis) See Rx Instructions .Route .COMPLEX #180 tabs 05/31/23 [Rx Last Taken Unknown] atorvastatin 80 mg tablet See Rx Instructions .Route .COMPLEX #360 TABLETS 06/09/23 [Rx Last Taken Unknown] isosorbide mononitrate 30 mg tablet,extended release 24 hr See Rx Instructions .Route .COMPLEX #360 TABLETS 06/09/23 [Rx Last Taken Unknown] furosemide 40 mg tablet See Rx Instructions .Route .COMPLEX #90 TABLETS 07/04/23[Rx Last Taken Unknown] dulaglutide 1.5 mg/0.5 mL subcutaneous pen injector (Trulicity) 1.5 mg (0.5 mL) subcut QWEEK #2 mL 08/11/23 [Rx Last Taken Unknown] flash glucose scanning reader (Typeform Sanam 2 [place]) #1 ea 08/11/23 [Rx Last Taken Unknown] Allergy/AdvReac Type Severity Reaction Status Date / Time amoxicillin trihydrate AdvReac Vomiting Verified 09/06/23 11:43 [From Augmentin] potassium clavulanate AdvReac Vomiting Verified 09/06/23 11:43 [From Augmentin] Family History Father Myocardial infarction Cancer prostate, leukemia Agent orange exposure Diabetes Sister Diabetes COPD (chronic obstructive pulmonary disease) Mother CVA (cerebral vascular accident) Hypertension Surgical History History of appendectomy History of back surgery History of cholecystectomy (1991) History of cholecystectomy History of coronary artery stent placement (05/19/21) History of hysterectomy History of laparoscopy History of left heart catheterization (09/14/21) History of tonsillectomy Status post insertion of nerve stimulator Social History household members: significant other Smoking Status: Former smoker how long ago did patient quit smoking: Quit 1990, smoke 2 ppd since teen until quit. alcohol intake: current alcohol intake frequency: holidays/special occasions only substance use type: does not use caffeine: Yes ROS ROS Narrative Constitutional: Reports fatigue and weakness. Mild chills but denies fever. Nodiaphoresis or sweating HEENT: Reports systems reviewed and no addt'l complaints, except as documented Respiratory/Chest: No acute shortness of breath or respiratory distress or wheezing. CVS: No chest pressure or pain or tightness Gastrointestinal: Mild nausea, loss of appetite. Denies coffee ground emesis, hematemesis or vomiting Genitourinary: Hematuria. Rest as described in HPI. History of UTI about 7 years ago Musculoskeletal: Had back surgery in the past. Denies acute joint pain or limited range of motion. No acute injury Neurologic: Denies seizure-like symptoms. skin: No ulcer. No rash Endocrinology: Reports systems reviewed and no addt'l complaints, except as documented Hematologic/Lymphatic: Reports systems reviewed and no addt'l complaints, exceptas documented Rest 14 ROS are negative except as mentioned in HPI Vital Signs Vital Signs Vital Signs: 09/06/23 11:42 09/06/23 12:53 09/06/23 13:30 Temperature 97.3 F L Temperature Source Temporal Pulse Rate 87 83 83 Respiratory Rate 14 14 14 Blood Pressure 134/84 H 112/47 L 113/67 Blood Pressure Mean 100 68 82 Pulse Ox 99 100 100 Oxygen Delivery Method Room Air Room Air Room Air 09/06/23 14:52 09/06/23 15:53 09/06/23 16:00 Temperature 98.5 F 97.8 F 98.6 F Temperature Source Temporal Temporal Pulse Rate 80 80 78 Respiratory Rate 14 15 18 Blood Pressure 107/68 131/82 H 128/74 H Blood Pressure Mean 81 98 92 Pulse Ox 99 100 100 Oxygen Delivery Method Room Air Room Air Weight Weight: 209 lb Body Mass Index (BMI) 35.9 Physical Exam Narrative General: Alert, Oriented x3, Cooperative. BMI 35.8 kg/m? HEENT: Atraumatic, PERRLA, EOMI, Normocephalic Oral: No Gingival or Mucosal Lesions/ Ulcerations Neck: Supple, No JVD, Negative Carotid Bruits Chest wall/Lungs: Air entry diminished in bilateral lung bases. No crepitation/rhonchi Cardiovascular: Regular rate, Regular Rhythm, Normal S1, Normal S2, No M/G/R Abdomen: Bowel Sounds Present, Soft, Non Tender, Non-Distended : Mild tenderness present in suprapubic region. Hematuria. Triple-lumen Gaspar catheter. CBI no renal angle tenderness. Extremities: No edema, Capillary Refill Less than 3 Seconds Skin: No rashes, No breakdown Musculoskeletal: No Tenderness to Palpation of Joints or Extremities. Degenerative arthritis of knees joints Spine: Lumbar spine surgical scar. Neurological: Cranial nerves II-XII grossly intact, DTR 2+/4. No acute focal neurological deficit. Psych/Mental Status: Normal Affect, Appropriate. Results Lab / Micro Data 09/06/23 12:30 09/06/23 12:30 Labs: Laboratory Results - last 24 hr 09/06/23 12:30: WBC 7.0, RBC 3.17 L, Hgb 10.2 L, Hct 31.1 L, MCV 98.1, MCH 32.2 H, MCHC 32.8, RDW Std Deviation 51.8 H, RDW Coeff of Tomi 14.8 H, Plt Count 220, MPV 9.8, Immature Gran % (Auto) 0.300, Neut % (Auto) 66.9, Lymph % (Auto) 24.9, [place] % (Auto) 7.2, Eos % (Auto) 0.6, Baso % (Auto) 0.1, Absolute Neuts (auto) 4.7, Absolute Lymphs (auto) 1.73, Nucleated RBC % 0, Sodium 137, Potassium 3.9, Chloride 110 H, Carbon Dioxide 20.0 L, Anion Gap 7, BUN 30 H, Creatinine 0.84, Estim Creat Clear Calc 86.50, Est GFR (MDRD) Af Amer 90, Est GFR (MDRD) Non-Af 75, BUN/Creatinine Ratio 35.5 H, Glucose 169 H, Calcium 8.5 09/06/23 12:40: Urine Color Red, Urine Clarity Turbid, Urine pH 7.0, Ur SpecificGravity 1.010, Urine Protein 500 H, Urine Glucose (UA) 250 H, Urine Ketones Negative, Urine Occult Blood 250 H, Urine Nitrite Negative, Urine Bilirubin Negative, Urine Urobilinogen Normal, Ur Leukocyte Esterase Negative, Urine RBC 50-100 SEEN, Urine WBC 0 SEEN, Ur Squamous Epith Cells 0 SEEN, Urine Bacteria 0 SEEN, Urine Mucus 0 SEEN Assessment & Plan Assessment/Plan (1) Gross hematuria: PLAN: Plan This 52-year-old female is being admitted for sudden onset of gross hematuria today in the morning. 1. Acute on recurrent gross hematuria most likely due to Plavix and Eliquis: Patient is being admitted in PCU. During previous admission patient had Gaspar catheter which was discontinued and she was voiding spontaneously without blood at the time of discharge but restarted today. H&H every 6 hourly. Urologist isconsulted. Hold Plavix and Eliquis. Urologist Dr. Berenice Short is consulted. Continue continuous bladder irrigation. Although UA is negative for LE and nitrite but started on IV ceftriaxone because chances of UTI is high with Gaspar catheter and passing blood clots. During previous admission, urine culture grew less than 1000 E. coli and lactobacillus suggestive of commensal/colonization/contamination. CT abdomen/pelvis on 08/25 shows diffuse bladder wall thickening and pericecal fat stranding possible cystitis with possibility of asymmetric thickening of right posterior lateral bladder wall. Nonobstructive calculi lower pole of right kidney unchanged. Had cholecystectomy appendectomy and hysterectomy #2. Chronic blood loss anemia secondary to gross hematuria: Hemoglobin 10.2/31%. Patient was discharged on 9.7 g therefore does not meet criteria for acute anemia #3. Type 2 diabetes-glucose in BMP is 169. Patient home dose of Humalog insulindecreased but long-acting insulin continued. Accu-Chek ACH cover with sliding scale. #4. Paroxysmal A-fib heart rate is controlled. Apixaban is held. Carvedilol discontinued with holding parameters. #6. Chronic ischemic cardiomyopathy is a history of non-STEMI/CAD with chronic HFrEF:-The patient's last echocardiogram showed a 45% EF. Home medications continued. Hold Lasix, Entresto and spironolactone today as patient blood pressure is in the 120 systolic. May resume gradually once hemodynamic parameters are stable. 7. DVT prophylaxis: Pharmacological prophylaxis is contraindicated. Bilateral SCDs Living will/advanced directive/end of life care: Patient does have living will or advanced directive. Her fianc? near the bedside, [facility]. After discussion of benefits/risks procedures involved with full code, DNR CC arrest and DNR CC, the patient opted for full code. Patient does want artificial life support including intubation, tube feed, ventilator and/chest compression, central venous catheter, vasopressor and DC shock if needed Total time spent in [id number] encounter in discussion of advanced directive 17 minutes. Laboratory Results 09/06/23 12:30: WBC 7.0, RBC 3.17 L, Hgb 10.2 L, Hct 31.1 L, MCV 98.1, MCH 32.2 H, MCHC 32.8, RDW Std Deviation 51.8 H, RDW Coeff of Tomi 14.8 H, Plt Count 220, MPV 9.8, Immature Gran % (Auto) 0.300, Neut % (Auto) 66.9, Lymph % (Auto) 24.9, [place] % (Auto) 7.2, Eos % (Auto) 0.6, Baso % (Auto) 0.1, Absolute Neuts (auto) 4.7, Absolute Lymphs (auto) 1.73, Nucleated RBC % 0, Sodium 137, Potassium 3.9, Chloride 110 H, Carbon Dioxide 20.0 L, Anion Gap 7, BUN 30 H, Creatinine 0.84, Estim Creat Clear Calc 86.50, Est GFR (MDRD) Af Amer 90, Est GFR (MDRD) Non-Af 75, BUN/Creatinine Ratio 35.5 H, Glucose 169 H, Calcium 8.5 09/06/23 12:40: Urine Color Red, Urine Clarity Turbid, Urine pH 7.0, Ur SpecificGravity 1.010, Urine Protein 500 H, Urine Glucose (UA) 250 H, Urine Ketones Negative, Urine Occult Blood 250 H, Urine Nitrite Negative, Urine Bilirubin Negative, Urine Urobilinogen Normal, Ur Leukocyte Esterase Negative, Urine RBC 50-100 SEEN, Urine WBC 0 SEEN, Ur Squamous Epith Cells 0 SEEN, Urine Bacteria 0 SEEN, Urine Mucus 0 SEEN Charges/Coding Visit Charges Inpatient E&M: 86572 Init Hosp L3 Procedures Hospitalists Procedures: 73457 Advncd Care Plan 30 Min 09/06/23 3312 <Electronically signed by Navdeep Bourgeois MD> Cosigner Signature (if applicable): CC: Dr. Margo Tatum DO; Dr. Navdeep Bourgeois MD~ Signed [facility] Work Phone: 1(738) 521-208504-02-2024 Discharge summary Author Terry Arzate [facility] September 06, 2023 2:58pm Note Date/Time September 06, 2023 11:4 9am [facility] Medical Records Department [address] [place] [address] Emergency Department Summary 09/06/23 MR#: [id number] Acct: [id number] Name: PITO HENDRIX Rep #:[id number] : 1970 52 From: Terry Arzate MD PCP: Dr. Margo Tatum, DO Status:REG ER Location: ED HPI HPI - Female History of Present Illness Chief Complaint: Vag Bleeding Detail of Chief Complaint: Gross hematuria Informant: patient Pain Pain: Negative for Pelvic Pain, Vulvar Pain or Vaginal Pain Current Severity: Mild Maximum Severity: Moderate Worsened by: Movement and [place] Relieved by: Remaining Still, NSAIDS and Tylenol Bleeding Issue: Negative for Vaginal bleeding, Passing clots or Passing tissue Associated Symptoms Associated Symptoms: Positive for Dysuria, Urgency and Hematuria; Negative for Frequency or Missed Period Last known menstrual period: Patient is status post hysterectomy 2003 [facility] Medical History Atherosclerotic heart disease of [place] coronary artery without angina pectoris Atrial fibrillation Benign hypertension Cardiomyopathy, ischemic Chronic low back pain Chronic nausea COPD (chronic obstructive pulmonary disease) Coronary artery disease COVID-19 virus infection Diabetes Difficult intubation Former smoker HFrEF (heart failure with reduced ejection fraction) Hirsutism History of non-ST elevation myocardial infarction (NSTEMI) (09/08/21) Hyperglycemia due to type 2 diabetes mellitus Hyperlipidemia Hypertension Hyperthyroidism Irregular heart beat Kidney stones Left bundle branch block (LBBB) Myocardial infarct Non-ischemic cardiomyopathy Non-ST elevation (NSTEMI) myocardial infarction Obesity Paroxysmal atrial fibrillation Presence of cardiac 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 therapy defibrillator (CRTT-D) Seizures Syncope Thyroid nodule Type 2 diabetes mellitus Vomiting Home Medications BD Ultra-Fine [place] Pen Needle 32 gauge x /32 (pen needle, diabetic) #100 ea 07/29/22 [Rx Last Taken Unknown] diphenhydramine HCl 25 mg tablet 25 mg PO Q4H PRN PRN Allergy Symptoms 08/06/22 [History Last Taken Unknown] hydrocodone-acetaminophen 5-325mg 5mg-325mg 1 tab PO Q8H PRN Check with primary doctor 08/06/22 [History Last Taken 08/06/22 10:00] naloxegol 25 mg tablet (Movantik) 25 mg PO QAM PRN Check with primary doctor 08/06/22 [History Last Taken Unknown] omeprazole magnesium 20 mg tablet,delayed release (Prilosec OTC) 20 mg PO DAILY Check with primary doctor 08/06/22 [History Last Taken Unknown] promethazine 25 mg tablet 25 mg PO TID PRN PRN Nausea And Vomiting 08/06/22 [History Last Taken Unknown] tizanidine 4 mg tablet 4 mg PO QHS 08/06/22 [History Last Taken 08/05/22] dapagliflozin propanediol 10 mg tablet (Farxiga) 10 mg PO DAILY 10/20/22 [History Last Taken Unknown] ibuprofen 200 mg tablet 200 mg PO Q6H PRN fever or pain 10/20/22 [History Last Taken Unknown] insulin glargine 100 unit/mL (3 mL) subcutaneous pen (Lantus Solostar U-100 Insulin) 30 unit subcut DAILY Check with primary doctor 10/20/22 [History Last Taken Unknown] insulin lispro 100 unit/mL subcutaneous pen (Humalog KwikPen (U-100) Insulin) 14unit subcut TIDCM Check with primary doctor 10/20/22 [History Last Taken Unknown] sacubitril 97 mg-valsartan 103 mg tablet (Entresto) 1 tab PO BID 10/20/22 [History Last Taken Unknown] flash glucose sensor (FreeStyle Sanam 2 Sensor kit) #2 ea 03/02/23 [Rx Last Taken Unknown] cholecalciferol (vitamin D3) 50 mcg (2,000 unit) capsule 1,000 unit PO DAILY 03/08/23 [History Last Taken Unknown] spironolactone 50 mg tablet 50 mg PO DAILY #90 tabs 03/08/23 [Rx Last Taken Unknown] carvedilol 25 mg tablet 25 mg PO BID Check with primary doctor #180 tabs 03/10/23 [Rx Last Taken Unknown] glipizide 10 mg tablet, extended release 24 hr 10 mg PO BID diabetes #180 tabs 03/14/23 [Rx Last Taken Unknown] methimazole 10 mg tablet 10 mg PO DAILY #90 tabs 03/14/23 [Rx Last Taken Unknown] clopidogrel 75 mg tablet (Plavix) 75 mg PO DAILY #90 tabs 05/16/23 [Rx Last Taken Unknown] apixaban 5 mg tablet (Eliquis) See Rx Instructions .Route .COMPLEX #180 tabs 05/31/23 [Rx Last Taken Unknown] atorvastatin 80 mg tablet See Rx Instructions .Route .COMPLEX #360 TABLETS 06/09/23 [Rx Last Taken Unknown] isosorbide mononitrate 30 mg tablet,extended release 24 hr See Rx Instructions .Route .COMPLEX #360 TABLETS 06/09/23 [Rx Last Taken Unknown] furosemide 40 mg tablet See Rx Instructions .Route .COMPLEX #90 TABLETS 07/04/23[Rx Last Taken Unknown] dulaglutide 1.5 mg/0.5 mL subcutaneous pen injector (Trulicity) 1.5 mg (0.5 mL) subcut QWEEK #2 mL 08/11/23 [Rx Last Taken Unknown] flash glucose scanning reader (Typeform Sanam 2 [place]) #1 ea 08/11/23 [Rx Last Taken Unknown] Allergy/AdvReac Type Severity Reaction Status Date / Time amoxicillin trihydrate AdvReac Vomiting Verified 09/06/23 11:43 [From Augmentin] potassium clavulanate AdvReac Vomiting Verified 09/06/23 11:43 [From Augmentin] Family History Father Myocardial infarction Cancer prostate, leukemia Agent orange exposure Diabetes Sister Diabetes COPD (chronic obstructive pulmonary disease) Mother CVA (cerebral vascular accident) Hypertension Surgical History History of appendectomy History of back surgery History of cholecystectomy (1991) History of cholecystectomy History of coronary artery stent placement (05/19/21) History of hysterectomy History of laparoscopy History of left heart catheterization (09/14/21) History of tonsillectomy Status post insertion of nerve stimulator Social History household members: significant other Smoking Status: Former smoker how long ago did patient quit smoking: Quit 1990, smoke 2 ppd since teen until quit. alcohol intake: current alcohol intake frequency: holidays/special occasions only substance use type: does not use caffeine: Yes ROS ROS ED Constitutional Constitutional ED: Denies chills, fever(s), subjective or sweats Eyes Eyes: Denies blurry vision, change in vision or diplopia Cardiovascular Cardiovascular: Denies chest pain, orthopnea, palpitations or paroxysmal nocturnal dyspnea Respiratory/Chest Respiratory/Chest: Denies cough, dyspnea, dyspnea on exertion, orthopnea or paroxysmal nocturnal dyspnea Gastrointestinal Gastrointestinal: Reports abdominal pain; Denies diarrhea, melena, nausea or vomiting Genitourinary Genitourinary ED: Reports hematuria and urinary frequency; Denies dysuria Musculoskeletal Musculoskeletal: Denies arthralgias, myalgias or neck pain Integumentary Denies rash Neurologic Neurologic: Denies headache(s) or paresthesias Hematologic/Lymphatic Hematologic/Lymphatic: Reports easy bleeding and easy bruising EXAM Physical Exam Const Vital Signs: 09/06/23 11:42 09/06/23 12:53 09/06/23 13:30 Temperature 97.3 F L Temperature Source Temporal Pulse Rate 87 83 83 Respiratory Rate 14 14 14 Blood Pressure 134/84 H 112/47 L 113/67 Blood Pressure Mean 100 68 82 Pulse Ox 99 100 100 Oxygen Delivery Method Room Air Room Air Room Air 09/06/23 14:52 Temperature 98.5 F Temperature Source Pulse Rate 80 Respiratory Rate 14 Blood Pressure 107/68 Blood Pressure Mean 81 Pulse Ox 99 Oxygen Delivery Method Positive well nourished, well developed and obese General Appearance ED: well developed and NAD Nutritional Appearance: obese HEENT Reports TM's clear and moist mucous membranes HEENT Narrative: Head is atraumatic and normocephalic. Tympanic Membrane ED: Yes TM's clear Eyes PERRL and EOMs intact bilaterally General Eye ED: Negative for pale conjunctiva or scleral icterus Neck no lymphadenopathy, supple and no JVD Resp normal respiratory effort and clear to auscultation bilaterally Cardio regular rate, regular rhythm, S1 normal heart sound, no murmurs and no JVD GI normal to inspection, nondistended, normoactive bowel sounds, soft to palpation,non-tender, non-distended and no masses Back/Spine no CVA tenderness Extremity normal to inspection and full ROM Neuro oriented x3, CN's II-XII intact bilaterally and no sensory deficits noted Sensorium / Orientation: alert Motor Exam: strength 5/5 throughout Psych mental status grossly normal Skin no rashes or lesions noted and no wounds MDM MDM MDM Narrative Medical decision making narrative: History is remarked for gross hematuria. This may be due to the fact that she is on Plavix and Eliquis. UA was obtained. CBC to assess H&H compared to recent admission. She states she was seen by urology. She prefers not to follow-up with that urologist because of her interaction. History & Record Review Additional record(s) reviewed:: Prior inpatient record, Prior ED visit and Priorlabs Lab Data Attestation: I reviewed the patient's lab results. Lab results narrative: CBC is remarkable for anemia. Indices are unremarkable. Basic metabolic panel reveals slight elevation of chloride and glucose of 110 and 169 respectively. BUN to creatinine ratio is elevated at 35-1. CO2 is slightly diminished with a normal anion gap. Urinalysis is turbid red in appearance. Macro is positive for protein, glucose and occult blood. Micro is remarkable for 100 RBCs. Thereis no WBCs or bacteria seen. Labs: Laboratory Results - last 24 hr 09/06/23 09/06/23 12:30 12:40 WBC 7.0 RBC 3.17 L Hgb 10.2 L Hct 31.1 L MCV 98.1 MCH 32.2 H MCHC 32.8 RDW Std Deviation 51.8 H RDW Coeff of Tomi 14.8 H Plt Count 220 MPV 9.8 Immature Gran % (Auto) 0.300 Neut % (Auto) 66.9 Lymph % (Auto) 24.9 [place] % (Auto) 7.2 Eos % (Auto) 0.6 Baso % (Auto) 0.1 Absolute Neuts (auto) 4.7 Absolute Lymphs (auto) 1.73 Nucleated RBC % 0 Sodium 137 Potassium 3.9 Chloride 110 H Carbon Dioxide 20.0 L Anion Gap 7 BUN 30 H Creatinine 0.84 Estim Creat Clear Calc 86.50 Est GFR (MDRD) Af Amer 90 Est GFR (MDRD) Non-Af 75 BUN/Creatinine Ratio 35.5 H Glucose 169 H Calcium 8.5 Urine Color Red Urine Clarity Turbid Urine pH 7.0 Ur Specific [place] 1.010 Urine Protein 500 H Urine Glucose (UA) 250 H Urine Ketones Negative Urine Occult Blood 250 H Urine Nitrite Negative Urine Bilirubin Negative Urine Urobilinogen Normal Ur Leukocyte Esterase Negative Urine RBC 50-100 SEEN Urine WBC 0 SEEN Ur Squamous Epith Cells 0 SEEN Urine Bacteria 0 SEEN Urine Mucus 0 SEEN Management Discussion w/another healthcare provider: Director Alumni Relations (Case was discussed with Dr. Berenice Short. She was made aware the patient was recently in the hospital. She was made aware of the CAT scan and read that CAT scan revealed. She would like patient admitted to medicine service and she will see her in consultation.) Discharge Plan Dx/Rx/DC Orders Clinical Impression: Gross hematuria, Benign hypertension, Type 2 diabetes mellitus, Obesity, History of coronary artery stent placement, Cardiomyopathy, ischemic, Anticoagulant long- term use, Antiplatelet or antithrombotic long-term use Disposition Disposition: Acute Care Hospital [facility] What to do if you have Problems For any increased pain, shortness of breath, bleeding, nausea or vomiting, chestpain, or any unexpected problems, contact your Primary Care Provider. Call [facility] ([phone]) or report to the closest Emergency Room. Call 911 if necessary. 09/06/23 1451 <Electronically signed by Terry Arzate MD> Cosigner Signature (if applicable): CC: Dr. Margo Tatum DO ~ Signed [facility] Work Phone: 1([phone] 292-403004-02-2024 Discharge summary Author Terry Arzate [facility] September 06, 2023 2:58pm Note Date/Time September 06, 2023 11:4 9am [facility] Medical Records Department [address] [place] [address] Emergency Department Summary 09/06/23 MR#: [id number] Acct: [id number] Name: PITO HENDRIX Rep #:[id number] : 1970 52 From: Terry Arzate MD PCP: Dr. Margo Tatum DO Status:REG ER Location: ED HPI HPI - Female History of Present Illness Chief Complaint: Vag Bleeding Detail of Chief Complaint: Gross hematuria Informant: patient Pain Pain: Negative for Pelvic Pain, Vulvar Pain or Vaginal Pain Current Severity: Mild Maximum Severity: Moderate Worsened by: Movement and [place] Relieved by: Remaining Still, NSAIDS and Tylenol Bleeding Issue: Negative for Vaginal bleeding, Passing clots or Passing tissue Associated Symptoms Associated Symptoms: Positive for Dysuria, Urgency and Hematuria; Negative for Frequency or Missed Period Last known menstrual period: Patient is status post hysterectomy 2003 [facility] Medical History Atherosclerotic heart disease of [place] coronary artery without angina pectoris Atrial fibrillation Benign hypertension Cardiomyopathy, ischemic Chronic low back pain Chronic nausea COPD (chronic obstructive pulmonary disease) Coronary artery disease COVID-19 virus infection Diabetes Difficult intubation Former smoker HFrEF (heart failure with reduced ejection fraction) Hirsutism History of non-ST elevation myocardial infarction (NSTEMI) (09/08/21) Hyperglycemia due to type 2 diabetes mellitus Hyperlipidemia Hypertension Hyperthyroidism Irregular heart beat Kidney stones Left bundle branch block (LBBB) Myocardial infarct Non-ischemic cardiomyopathy Non-ST elevation (NSTEMI) myocardial infarction Obesity Paroxysmal atrial fibrillation Presence of cardiac 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 therapy defibrillator (CRTT-D) Seizures Syncope Thyroid nodule Type 2 diabetes mellitus Vomiting Home Medications BD Ultra-Fine [place] Pen Needle 32 gauge x /32 (pen needle, diabetic) #100 ea 07/29/22 [Rx Last Taken Unknown] diphenhydramine HCl 25 mg tablet 25 mg PO Q4H PRN PRN Allergy Symptoms 08/06/22 [History Last Taken Unknown] hydrocodone-acetaminophen 5-325mg 5mg-325mg 1 tab PO Q8H PRN Check with primary doctor 08/06/22 [History Last Taken 08/06/22 10:00] naloxegol 25 mg tablet (Movantik) 25 mg PO QAM PRN Check with primary doctor 08/06/22 [History Last Taken Unknown] omeprazole magnesium 20 mg tablet,delayed release (Prilosec OTC) 20 mg PO DAILY Check with primary doctor 08/06/22 [History Last Taken Unknown] promethazine 25 mg tablet 25 mg PO TID PRN PRN Nausea And Vomiting 08/06/22 [History Last Taken Unknown] tizanidine 4 mg tablet 4 mg PO QHS 08/06/22 [History Last Taken 08/05/22] dapagliflozin propanediol 10 mg tablet (Farxiga) 10 mg PO DAILY 10/20/22 [History Last Taken Unknown] ibuprofen 200 mg tablet 200 mg PO Q6H PRN fever or pain 10/20/22 [History Last Taken Unknown] insulin glargine 100 unit/mL (3 mL) subcutaneous pen (Lantus Solostar U-100 Insulin) 30 unit subcut DAILY Check with primary doctor 10/20/22 [History Last Taken Unknown] insulin lispro 100 unit/mL subcutaneous pen (Humalog KwikPen (U-100) Insulin) 14unit subcut TIDCM Check with primary doctor 10/20/22 [History Last Taken Unknown] sacubitril 97 mg-valsartan 103 mg tablet (Entresto) 1 tab PO BID 10/20/22 [History Last Taken Unknown] flash glucose sensor (FreeStyle Sanam 2 Sensor kit) #2 ea 03/02/23 [Rx Last Taken Unknown] cholecalciferol (vitamin D3) 50 mcg (2,000 unit) capsule 1,000 unit PO DAILY 03/08/23 [History Last Taken Unknown] spironolactone 50 mg tablet 50 mg PO DAILY #90 tabs 03/08/23 [Rx Last Taken Unknown] carvedilol 25 mg tablet 25 mg PO BID Check with primary doctor #180 tabs 03/10/23 [Rx Last Taken Unknown] glipizide 10 mg tablet, extended release 24 hr 10 mg PO BID diabetes #180 tabs 03/14/23 [Rx Last Taken Unknown] methimazole 10 mg tablet 10 mg PO DAILY #90 tabs 03/14/23 [Rx Last Taken Unknown] clopidogrel 75 mg tablet (Plavix) 75 mg PO DAILY #90 tabs 05/16/23 [Rx Last Taken Unknown] apixaban 5 mg tablet (Eliquis) See Rx Instructions .Route .COMPLEX #180 tabs 05/31/23 [Rx Last Taken Unknown] atorvastatin 80 mg tablet See Rx Instructions .Route .COMPLEX #360 TABLETS 06/09/23 [Rx Last Taken Unknown] isosorbide mononitrate 30 mg tablet,extended release 24 hr See Rx Instructions .Route .COMPLEX #360 TABLETS 06/09/23 [Rx Last Taken Unknown] furosemide 40 mg tablet See Rx Instructions .Route .COMPLEX #90 TABLETS 07/04/23[Rx Last Taken Unknown] dulaglutide 1.5 mg/0.5 mL subcutaneous pen injector (Trulicity) 1.5 mg (0.5 mL) subcut QWEEK #2 mL 08/11/23 [Rx Last Taken Unknown] flash glucose scanning reader (FreeStyle Sanam 2 [place]) #1 ea 08/11/23 [Rx Last Taken Unknown] Allergy/AdvReac Type Severity Reaction Status Date / Time amoxicillin trihydrate AdvReac Vomiting Verified 09/06/23 11:43 [From Augmentin] potassium clavulanate AdvReac Vomiting Verified 09/06/23 11:43 [From Augmentin] Family History Father Myocardial infarction Cancer prostate, leukemia Agent orange exposure Diabetes Sister Diabetes COPD (chronic obstructive pulmonary disease) Mother CVA (cerebral vascular accident) Hypertension Surgical History History of appendectomy History of back surgery History of cholecystectomy (1991) History of cholecystectomy History of coronary artery stent placement (05/19/21) History of hysterectomy History of laparoscopy History of left heart catheterization (09/14/21) History of tonsillectomy Status post insertion of nerve stimulator Social History household members: significant other Smoking Status: Former smoker how long ago did patient quit smoking: Quit 1990, smoke 2 ppd since teen until quit. alcohol intake: current alcohol intake frequency: holidays/special occasions only substance use type: does not use caffeine: Yes ROS ROS ED Constitutional Constitutional ED: Denies chills, fever(s), subjective or sweats Eyes Eyes: Denies blurry vision, change in vision or diplopia Cardiovascular Cardiovascular: Denies chest pain, orthopnea, palpitations or paroxysmal nocturnal dyspnea Respiratory/Chest Respiratory/Chest: Denies cough, dyspnea, dyspnea on exertion, orthopnea or paroxysmal nocturnal dyspnea Gastrointestinal Gastrointestinal: Reports abdominal pain; Denies diarrhea, melena, nausea or vomiting Genitourinary Genitourinary ED: Reports hematuria and urinary frequency; Denies dysuria Musculoskeletal Musculoskeletal: Denies arthralgias, myalgias or neck pain Integumentary Denies rash Neurologic Neurologic: Denies headache(s) or paresthesias Hematologic/Lymphatic Hematologic/Lymphatic: Reports easy bleeding and easy bruising EXAM Physical Exam Const Vital Signs: 09/06/23 11:42 09/06/23 12:53 09/06/23 13:30 Temperature 97.3 F L Temperature Source Temporal Pulse Rate 87 83 83 Respiratory Rate 14 14 14 Blood Pressure 134/84 H 112/47 L 113/67 Blood Pressure Mean 100 68 82 Pulse Ox 99 100 100 Oxygen Delivery Method Room Air Room Air Room Air 09/06/23 14:52 Temperature 98.5 F Temperature Source Pulse Rate 80 Respiratory Rate 14 Blood Pressure 107/68 Blood Pressure Mean 81 Pulse Ox 99 Oxygen Delivery Method Positive well nourished, well developed and obese General Appearance ED: well developed and NAD Nutritional Appearance: obese HEENT Reports TM's clear and moist mucous membranes HEENT Narrative: Head is atraumatic and normocephalic. Tympanic Membrane ED: Yes TM's clear Eyes PERRL and EOMs intact bilaterally General Eye ED: Negative for pale conjunctiva or scleral icterus Neck no lymphadenopathy, supple and no JVD Resp normal respiratory effort and clear to auscultation bilaterally Cardio regular rate, regular rhythm, S1 normal heart sound, no murmurs and no JVD GI normal to inspection, nondistended, normoactive bowel sounds, soft to palpation,non-tender, non-distended and no masses Back/Spine no CVA tenderness Extremity normal to inspection and full ROM Neuro oriented x3, CN's II-XII intact bilaterally and no sensory deficits noted Sensorium / Orientation: alert Motor Exam: strength 5/5 throughout Psych mental status grossly normal Skin no rashes or lesions noted and no wounds MDM MDM MDM Narrative Medical decision making narrative: History is remarked for gross hematuria. This may be due to the fact that she is on Plavix and Eliquis. UA was obtained. CBC to assess H&H compared to recent admission. She states she was seen by urology. She prefers not to follow-up with that urologist because of her interaction. History & Record Review Additional record(s) reviewed:: Prior inpatient record, Prior ED visit and Priorlabs Lab Data Attestation: I reviewed the patient's lab results. Lab results narrative: CBC is remarkable for anemia. Indices are unremarkable. Basic metabolic panel reveals slight elevation of chloride and glucose of 110 and 169 respectively. BUN to creatinine ratio is elevated at 35-1. CO2 is slightly diminished with a normal anion gap. Urinalysis is turbid red in appearance. Macro is positive for protein, glucose and occult blood. Micro is remarkable for 100 RBCs. Thereis no WBCs or bacteria seen. Labs: Laboratory Results - last 24 hr 09/06/23 09/06/23 12:30 12:40 WBC 7.0 RBC 3.17 L Hgb 10.2 L Hct 31.1 L MCV 98.1 MCH 32.2 H MCHC 32.8 RDW Std Deviation 51.8 H RDW Coeff of Tomi 14.8 H Plt Count 220 MPV 9.8 Immature Gran % (Auto) 0.300 Neut % (Auto) 66.9 Lymph % (Auto) 24.9 [place] % (Auto) 7.2 Eos % (Auto) 0.6 Baso % (Auto) 0.1 Absolute Neuts (auto) 4.7 Absolute Lymphs (auto) 1.73 Nucleated RBC % 0 Sodium 137 Potassium 3.9 Chloride 110 H Carbon Dioxide 20.0 L Anion Gap 7 BUN 30 H Creatinine 0.84 Estim Creat Clear Calc 86.50 Est GFR (MDRD) Af Amer 90 Est GFR (MDRD) Non-Af 75 BUN/Creatinine Ratio 35.5 H Glucose 169 H Calcium 8.5 Urine Color Red Urine Clarity Turbid Urine pH 7.0 Ur Specific [place] 1.010 Urine Protein 500 H Urine Glucose (UA) 250 H Urine Ketones Negative Urine Occult Blood 250 H Urine Nitrite Negative Urine Bilirubin Negative Urine Urobilinogen Normal Ur Leukocyte Esterase Negative Urine RBC 50-100 SEEN Urine WBC 0 SEEN Ur Squamous Epith Cells 0 SEEN Urine Bacteria 0 SEEN Urine Mucus 0 SEEN Management Discussion w/another healthcare provider: Director Alumni Relations (Case was discussed with Dr. Berenice Short. She was made aware the patient was recently in the hospital. She was made aware of the CAT scan and read that CAT scan revealed. She would like patient admitted to medicine service and she will see her in consultation.) Discharge Plan Dx/Rx/DC Orders Clinical Impression: Gross hematuria, Benign hypertension, Type 2 diabetes mellitus, Obesity, History of coronary artery stent placement, Cardiomyopathy, ischemic, Anticoagulant long- term use, Antiplatelet or antithrombotic long-term use Disposition Disposition: Acute Care Hospital [facility] What to do if you have Problems For any increased pain, shortness of breath, bleeding, nausea or vomiting, chestpain, or any unexpected problems, contact your Primary Care Provider. Call [facility] ([phone]) or report to the closest Emergency Room. Call 911 if necessary. 09/06/23 1124 <Electronically signed by Terry Arzate MD> Cosigner Signature (if applicable): CC: Dr. Margo Tatum, ~ Signed [facility] Work Phone: [phone] Discharge summary Author Damaris Thibodeaux [facility] August 29, 2023 12:17pm Note Date/Time August 29, 2023 11: 54am [facility] Medical Records Department [address] [place] [address] Discharge Summary 08/29/23 1149 MR#: [id number] Acct: [id number] Name: PITO HENDRIX Rep #:[id number] : 1970 52 From: Damaris Thibodeaux DO PCP: Dr. Margo Tatum DO Status:ADM IN Location: [facility] – [place] IR090-7 Providers Date of Admission: 08/26/23 Primary Care Physician: Dr. Margo Tatum DO Consultations 08/26/23 23:48 Consult: Urology Routine Consulting Provider: Emiliano Campoverde Reason for Consult: Urinary retention, hematuria EMERGENT Consult: No MD Notified: Yes Date Notified: 08/26/23 Time Notified: 22:42 Method of Notification: ED Physician Initiated Reason For Visit: hematuria, URINARY RETENTION, ?UTI Diagnosis Discharge Diagnosis (1) Hematuria: Status: Acute Code(s): R31.9 - Hematuria, unspecified (2) Acute urinary retention: Status: Acute Code(s): R33.8 - Other retention of urine Medications at Discharge Home Medications hydroxyzine HCl 25 mg tablet 25 - 50 mg PO QHS PRN anxiety 02/24/22 melatonin 10 mg tablet 10 mg PO HS PRN Insomnia 02/24/22 BD Ultra-Fine [place] Pen Needle 32 gauge x 5/32 (pen needle, diabetic) #100 ea 07/29/22 diphenhydramine HCl 25 mg tablet 25 mg PO Q4H PRN PRN Allergy Symptoms 08/06/22 hydrocodone-acetaminophen 5-325mg 5mg-325mg 1 tab PO DAILY Check with primary doctor 08/06/22 naloxegol 25 mg tablet (Movantik) 25 mg PO QAM Check with primary doctor 08/06/22 omeprazole magnesium 20 mg tablet,delayed release (Prilosec OTC) 20 mg PO DAILY Check with primary doctor 08/06/22 promethazine 25 mg tablet 25 mg PO TID PRN PRN Nausea And Vomiting 08/06/22 tizanidine 4 mg tablet 4 mg PO QHS 08/06/22 dapagliflozin propanediol 10 mg tablet (Farxiga) 10 mg PO DAILY 10/20/22 ibuprofen 200 mg tablet 200 mg PO Q6H PRN fever or pain 10/20/22 insulin glargine 100 unit/mL (3 mL) subcutaneous pen (Lantus Solostar U-100 Insulin) 23 unit subcut DAILY Check with primary doctor 10/20/22 insulin lispro 100 unit/mL subcutaneous pen (Humalog KwikPen (U-100) Insulin) 12unit subcut TIDCM Check with primary doctor 10/20/22 sacubitril 97 mg-valsartan 103 mg tablet (Entresto) 1 tab PO BID 10/20/22 flash glucose sensor (FreeStyle Sanam 2 Sensor kit) #2 ea 03/02/23 cholecalciferol (vitamin D3) 50 mcg (2,000 unit) capsule 1,000 unit PO DAILY 03/08/23 spironolactone 50 mg tablet 50 mg PO DAILY #90 tabs 03/08/23 carvedilol 25 mg tablet 25 mg PO BID Check with primary doctor #180 tabs 03/10/23 glipizide 10 mg tablet, extended release 24 hr 10 mg PO BID diabetes #180 tabs 03/14/23 methimazole 10 mg tablet 10 mg PO DAILY #90 tabs 03/14/23 clopidogrel 75 mg tablet (Plavix) 75 mg PO DAILY #90 tabs 05/16/23 apixaban 5 mg tablet (Eliquis) See Rx Instructions .Route .COMPLEX #180 tabs 05/31/23 atorvastatin 80 mg tablet See Rx Instructions .Route .COMPLEX #360 TABLETS 06/09/23 isosorbide mononitrate 30 mg tablet,extended release 24 hr See Rx Instructions .Route .COMPLEX #360 TABLETS 06/09/23 furosemide 40 mg tablet See Rx Instructions .Route .COMPLEX #90 TABLETS 07/04/23 dulaglutide 1.5 mg/0.5 mL subcutaneous pen injector (Trulicity) 1.5 mg (0.5 mL) subcut QWEEK #2 mL 08/11/23 flash glucose scanning reader (FreeStyle Sanam 2 [place]) #1 ea 08/11/23 Hospital Course Operations None Procedures - (CT abdomen and pelvis) Summary of Care Provided Minutes Spent on Discharge: 39 Hospital Course: Mrs. Quiros is a 52-year-old obese, white female who presented to the emergency department at [facility] on 08/26/2023 with significant hematuria throughout the day on presentation with notable blood clots. She also had acuteonset of urinary retention and when she forced urine out she passed smaller blood clots. She denied any dysuria on presentation but is anticoagulated and on antiplatelet therapy with Xarelto and Plavix respectively. She is on the Xarelto for paroxysmal atrial fibrillation and on the Plavix for history of coronary disease with LAD stent placement in 2020. She does have a history of tobacco abuse. On presentation the emergency department her overall vital signswere fairly unremarkable. She had a normal white count with a hemoglobin of 12.4 and a normal platelet count. Her BMP was unremarkable other than mild hypokalemia with a potassium of 3.1 and this was replaced. Her urinalysis was not consistent with infection her urine was cultured and she was started on ceftriaxone. A CT of the abdomen pelvis was performed and showed diffuse bladder wall thickening and pericecal fat stranding that was thought may be related to cystitis and possible asymmetric thickening of the right posterior lateral bladder wall along with nonobstructive calculi in the right pole of the right kidney. She was given medicine for pain in the emergency department and the case was discussed with Dr. Campoverde. She was evaluated by urology and she was placed on continuous bladder irrigation. Her urine slowly cleared and voiding trial was initiated on 08/28/2023. She still was passing clots after theFoley was removed but by the day of discharge on 08/29/2023 she no longer had anyclots passing. Her Plavix and Xarelto were held on admission. Urine culture showed E. coli and alpha hemolytic strep organism however colony counts were less than 1000 CFU's per mL indicating bacteria without active infection so antibiotics were discontinued. The patient was feeling much better and anxious for discharge. She was frustrated with Dr. Campoverde and asked if she for good follow-up as an outpatient with a different urologist. I discussed the case with Dr. Short and she indicated she was happy to see her in the office next week for further workup but indicated that if there was a malignancy she would need referral to a different urologist. This was explained to the patient and she wanted to continue outpatient follow-up with Dr. Short. I also discussed the case with Dr. Campoverde with regards to her anticoagulation. He recommended that we hold her Xarelto and Plavix for the next 5 days and restart them on 09/04/2023. This was placed in the patient's discharge instructions. She was instructed to call the urology office of Dr. Short either later today or tomorrow to set up an appointment for next week and to see her primary care physician within the next month. I do anticipate she will need an outpatient cystoscopy. Malignancy will need to be ruled out with her history of tobacco abuse and gross hematuria postmenopausally. Hemoglobin was reassessed prior to discharge and was stable at 9.8 with a.m. lab and 9.76 hours later. No new medications were started. She was discharged home in stable condition on 08/29/2023. Discharge diagnoses: Gross hematuria Abnormal CT of the abdomen pelvis with regards to the bladder Acute blood loss anemia secondary to hematuria Hypokalemia-replaced DM-2 History of ischemic cardiomyopathy status post cardiac 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 with CRTT-D CAD HTN HPL PAF History of hypothyroidism Chronic left bundle branch block COPD History of tobacco abuse History of nephrolithiasis Obesity Physical Exam Narrative Hematuria and passing clots has stopped since last evening. Patient states she is anxious to go home. Does not want to follow-up with Dr. Campoverde and states that he was rude to her and disrespected her. Const alert, oriented x3, no apparent distress, no limitations, healthy appearing and well nourished; Negative for average body habitus Constitutional Narrative: Obese, middle-aged, white female, walking around the room independently, appearscomfortable nontoxic General Appearance: cooperative, comfortable, well kempt and well developed Orientation / Consciousness: awake, oriented to person, oriented to place and oriented to time Exam Limitations: no limitations Nutritional Appearance: morbidly obese HEENT normocephalic, head/scalp atraumatic, hearing grossly normal bilaterally and moist oral mucous membranes HEENT Narrative: Mallampati 3-4, no thrush, dentition is fair Eyes PERRL and EOMs intact bilaterally Eyes Narrative: No scleral icterus Neck no lymphadenopathy and supple Neck Narrative: Neck is short and thick, trachea is midline Resp normal respiratory effort, no retractions, no use of accessory muscles and clearto auscultation bilaterally Resp Narrative: Diminished but clear Auscultation: Negative for rales, rhonchi or wheezes Cardio regular rate, regular rhythm, S1 normal heart sound, S2 normal heart sound, no murmurs, no rub, no gallops and no clicks GI normal to inspection, nondistended, normoactive bowel sounds, soft to palpation and non-tender Extremity no clubbing, cyanosis or edema Extremity Narrative: Pedal pulses and radial pulses are 2+ Skin no rashes or lesions noted, no wounds, skin turgor normal and no jaundice Skin Narrative: Multiple tattoos Neuro oriented x3, CN's II-XII intact bilaterally, moves all extremities and no focal motor deficits Neuro Narrative: Ambulates independently with normal gait pattern Speech: speech normal Psych affect normal Psych Narrative: Very pleasant, eye contact is good, patient interacts appropriately Weight / BMI Weight Weight: 95 kg Body Mass Index (BMI) 35.7 ABG / Lab / Microbiology Data 08/29/23 05:40 08/29/23 05:40 Laboratory: Laboratory Results - last 24 hr 08/26/23 20:40: Urine Color Red, Urine Clarity Turbid, Urine pH 7.0, Ur SpecificGravity 1.010, Urine Protein 500 H, Urine Glucose (UA) 250 H, Urine Ketones Negative, Urine Occult Blood 150 H, Urine Nitrite Negative, Urine Bilirubin Negative, Urine Urobilinogen Normal, Ur Leukocyte Esterase Negative, Urine RBC >100 SEEN, Urine WBC 0 SEEN, Ur Squamous Epith Cells 0 SEEN, Urine Bacteria 2+, Urine Mucus 0 SEEN 08/28/23 11:23: POC Glucose 308 H 08/28/23 15:50: POC Glucose 199 H 08/28/23 21:17: POC Glucose 165 H 08/29/23 05:40: Hgb 9.8 L, Hct 29.5 L, Sodium 140, Potassium 3.4 L, Chloride 110H, Carbon Dioxide 24.0, Anion Gap 6, BUN 7, Creatinine 0.81, Estim Creat Clear Calc 89.80, Est GFR (MDRD) Af Amer 95, Est GFR (MDRD) Non-Af 78, BUN/Creatinine Ratio 8.6 L, Glucose 245 H, Calcium 8.4 L, Phosphorus 2.8, Magnesium 2.1 08/29/23 07:45: POC Glucose 276 H Microbiology: Microbiology 08/26/23 20:40 Urine Catheter - Gaspar Urine Culture - Preliminary Escherichia coli Alpha hemolytic organism D/C Instructions Discharge Diet: Low fat / Low cholesterol and 1800 Calorie Control Diet Discharge Activity: Return to Normal Activity Return to work on: 08/30/23 May resume sexual activity in: 10-14 days Meaningful Use Info Meaningful Use Diagnoses (Choose all that apply): None applicable Discharge Plan Admission Admit Date/Time: 08/26/23 22:37 Primary Reason for Your Visit: Gross Hematuria Attending Provider: Damaris Thibodeaux Primary Care Provider: Margo Tatum Consulting Providers: Emiliano Campoverde; Perlita Gómez; Aidan Staples Instructions Additional Instructions / Restrictions: 1. Please hold both your Xarelto and Plavix for 5 days and restart them on 09/04/[address] Short's office either later today or tomorrow for further workup of the blood in your urine as an outpatient 3. Return to the emergency department if bleeding restarts Discharge Orders/Prescriptions Prescriptions: Continued insulin glargine [Lantus Solostar U-100 Insulin] 100 unit/mL (3 mL) insulin pen 23 unit subcut DAILY melatonin 10 mg tablet 10 mg PO HS PRN (Reason: Insomnia) hydroxyzine HCl 25 mg tablet 25 - 50 mg PO QHS PRN (Reason: anxiety) spironolactone 50 mg tablet 50 mg PO DAILY Qty: 90 12RF Farxiga 10 mg tablet 10 mg PO DAILY Entresto 97-103 mg tablet 1 tab PO BID (DME) FreeStyle Sanam 2 [place] Misc See Rx Instructions .Route Qty: 1 0RF Rx Instructions: As directed Trulicity 1.5 mg/0.5 mL pen injector 1.5 mg subcut QWEEK Qty: 2 3RF tizanidine 4 mg tablet 4 mg PO QHS Patient Comments: take 1 tablet by mouth every evening diphenhydramine HCl 25 mg Tablet 25 mg PO Q4H PRN PRN (Reason: Allergy Symptoms) promethazine 25 mg tablet 25 mg PO TID PRN PRN (Reason: Nausea And Vomiting) Patient Comments: take 1 tablet by mouth three times a day if needed for nausea and vomiting hydrocodone-acetaminophen 5-325 mg tablet 1 tab PO DAILY omeprazole magnesium [Prilosec OTC] 20 mg tablet,delayed release (DR/EC) 20 mg PO DAILY Movantik 25 mg tablet 25 mg PO QAM Rx Instructions: must be taken on empty stomach; no food 1 hr after or 2-3 hrs before dose insulin lispro [Humalog KwikPen Insulin] 100 unit/mL insulin pen 12 unit subcut TIDCM (DME) pen needle, diabetic [BD Ultra-Fine [place] Pen Needle] 32 gauge x 5/32 needle See Rx Instructions .Route Qty: 100 5RF Rx Instructions: 4x/day (DME) FreeStyle Sanam 2 Sensor Kit See Rx Instructions .Route Qty: 2 5RF Rx Instructions: 1 sensor q 14 days cholecalciferol (vitamin D3) 50 mcg (2,000 unit) capsule 1,000 unit PO DAILY carvedilol 25 mg tablet 25 mg PO BID Qty: 180 3RF Rx Instructions: must administer with a meal/food glipizide 10 mg tablet extended release 24hr 10 mg PO BID Qty: 180 1RF methimazole 10 mg tablet 10 mg PO DAILY Qty: 90 1RF atorvastatin 80 mg tablet See Rx Instructions .ROUTE .COMPLEX Qty: 360 0RF Dose Instruction: take 1 tablet by mouth at bedtime Rx Instructions: take 1 tablet by mouth at bedtime isosorbide mononitrate 30 mg tablet extended release 24 hr See Rx Instructions .ROUTE .COMPLEX Qty: 360 0RF Dose Instruction: take 1 tablet by mouth once daily Rx Instructions: take 1 tablet by mouth once daily furosemide 40 mg tablet See Rx Instructions .ROUTE .COMPLEX Qty: 90 3RF Dose Instruction: take 1 tablet by mouth once daily Rx Instructions: take 1 tablet by mouth once daily Held ibuprofen 200 mg tablet 200 mg PO Q6H PRN (Reason: fever or pain) Hold Instructions: until after you see Dr. Short clopidogrel [Plavix] 75 mg tablet 75 mg PO DAILY Qty: 90 3RF Hold Instructions: Resume on 09/04/23. Eliquis 5 mg tablet See Rx Instructions .ROUTE .COMPLEX Qty: 180 3RF Hold Instructions: Resume on 09/04/23. Dose Instruction: take 1 tablet by mouth twice a day Rx Instructions: take 1 tablet by mouth twice a day Referrals / Follow Up: Berenice Short MD [Med Staff - Active Staff] - Within 1 Week (Call office eitherlater today or tomorrow to set up an appointment. Tell them the you are in the hospital with blood in your urine and the hospital doctor talk to Dr. Short about this appointment) Margo Tatum DO [Primary Care Provider] - Within 1 Month Disposition Disposition (needs filled in before D/C Order can be placed): Home, Self Care Charges/Coding Visit Charges Inpatient E&M: 23777 Disch Hosp >30min 08/29/23 1217 <Electronically signed by Damaris Thibodeaux DO> Cosigner Signature (if applicable): CC: Dr. Berenice Short MD; Dr. Damaris Thibodeaux DO; Dr. Margo Tatum DO~ Signed [facility] Work Phone: [phone]) 850-328703-25-2024 Consult note Author Ynes Singh [facility] August 29, 2023 12:08pm Note Date/Time August 29, 2023 12: 08pm [facility] Medical Records Department [address] [place] [id number] Counseling Note - Pharmacy 08/29/23 1208 MR#: [id number] Acct: [id number] Name: PITO HENDRIX KAYLIN Rep #:[id number] : 1970 52 From: Ynes Singh PCP: Dr. Margo Tatum DO Status:ADM IN Y Location: [place] [address] Pharmacy [place] Med Reconciliation Pharmacy Service has performed discharge medication reconciliation for this patient. The patient's discharge medication list was reviewed for discrepancies and discrepancies were resolved. Medications at Discharge Home Medications hydroxyzine HCl 25 mg tablet 25 - 50 mg PO QHS PRN anxiety 02/24/22 melatonin 10 mg tablet 10 mg PO HS PRN Insomnia 02/24/22 BD Ultra-Fine [place] Pen Needle 32 gauge x /32 (pen needle, diabetic) #100 ea 07/29/22 diphenhydramine HCl 25 mg tablet 25 mg PO Q4H PRN PRN Allergy Symptoms 08/06/22 hydrocodone-acetaminophen 5-325mg 5mg-325mg 1 tab PO DAILY Check with primary doctor 08/06/22 naloxegol 25 mg tablet (Movantik) 25 mg PO QAM Check with primary doctor 08/06/22 omeprazole magnesium 20 mg tablet,delayed release (Prilosec OTC) 20 mg PO DAILY Check with primary doctor 08/06/22 promethazine 25 mg tablet 25 mg PO TID PRN PRN Nausea And Vomiting 08/06/22 tizanidine 4 mg tablet 4 mg PO QHS 08/06/22 dapagliflozin propanediol 10 mg tablet (Farxiga) 10 mg PO DAILY 10/20/22 ibuprofen 200 mg tablet 200 mg PO Q6H PRN fever or pain 10/20/22 insulin glargine 100 unit/mL (3 mL) subcutaneous pen (Lantus Solostar U-100 Insulin) 23 unit subcut DAILY Check with primary doctor 10/20/22 insulin lispro 100 unit/mL subcutaneous pen (Humalog KwikPen (U-100) Insulin) 12unit subcut TIDCM Check with primary doctor 10/20/22 sacubitril 97 mg-valsartan 103 mg tablet (Entresto) 1 tab PO BID 10/20/22 flash glucose sensor (AeroFarmsyle Sanam 2 Sensor kit) #2 ea 03/02/23 cholecalciferol (vitamin D3) 50 mcg (2,000 unit) capsule 1,000 unit PO DAILY 03/08/23 spironolactone 50 mg tablet 50 mg PO DAILY #90 tabs 03/08/23 carvedilol 25 mg tablet 25 mg PO BID Check with primary doctor #180 tabs 03/10/23 glipizide 10 mg tablet, extended release 24 hr 10 mg PO BID diabetes #180 tabs 03/14/23 methimazole 10 mg tablet 10 mg PO DAILY #90 tabs 03/14/23 clopidogrel 75 mg tablet (Plavix) 75 mg PO DAILY #90 tabs 05/16/23 apixaban 5 mg tablet (Eliquis) See Rx Instructions .Route .COMPLEX #180 tabs 05/31/23 atorvastatin 80 mg tablet See Rx Instructions .Route .COMPLEX #360 TABLETS 06/09/23 isosorbide mononitrate 30 mg tablet,extended release 24 hr See Rx Instructions .Route .COMPLEX #360 TABLETS 06/09/23 furosemide 40 mg tablet See Rx Instructions .Route .COMPLEX #90 TABLETS 07/04/23 dulaglutide 1.5 mg/0.5 mL subcutaneous pen injector (Trulicity) 1.5 mg (0.5 mL) subcut QWEEK #2 mL 08/11/23 flash glucose scanning reader (AeroFarmsyle Sanam 2 [place]) #1 ea 08/11/23 08/29/23 1208 <Electronically signed by Ynes Singh> Date _ Ynes Singh Cosigner Signature (if applicable): Date CC: ~ Signed [facility] Work Phone: 1(544) 152-314403-24-2024 Progress note Author Aidan Staples [facility] August 28, 2023 3:44pm Note Date/Time August 28, 2023 3:4 4pm [facility] Medical Records Department [address] [place] [address] Progress Note - Hospitalist 08/28/23 1538 MR#: [id number] Acct: [id number] Name: PITO HENDRIX KAYLIN Rep #:[id number] : 1970 52 From: Aidan Staples DO PCP: Dr. Margo Tatum DO Status:ADM IN [id number] Reason for Visit Reason for Visit: Diagnoses Hematuria, unspecified (08/26/23) Other retention of urine (08/26/23) custodial (current) use of anticoagulants (08/26/23) Subjective Subjective Patient was seen and examined today, I talked with her who was in the room at the time my examination, patient's Gaspar was discontinued today, she hasbeen able to void but she still sees small clots. Patient is reluctant to go home at this time and wants to stay until tomorrow, her states he would feel better if she stayed till tomorrow and was reevaluated in the morning. I talked briefly with urology about her care, urology stated that he would not do any procedures on her while she is hospitalized unless she had continued severe bleeding. Patient's hemoglobin yesterday morning was 10.2, I will repeat it tomorrow morning. Objective Data Objective Data Vital Signs: Vital Signs Temp Pulse Resp BP Pulse Ox O2 Del Method 98.5 F 81 18 112/72 96 Room Air 08/28/23 14:30 08/28/23 14:30 08/28/23 14:30 08/28/23 14:30 08/28/23 14:30 08/28/23 14:30 Oxygen Delivery Method Room Air Weight: 95 kg Body Mass Index (BMI) 35.7 Intake & Output: Intake and Output for Last 24 Hours 08/26/23 08/27/23 08/28/23 23:59 23:59 23:59 Intake Total 3120.0 / 3120.0 450 / 450 Output Total 1700 / 1700 83789 / 21717 3500 / 3500 Balance -1700 / -1700 -61516.0 / -54506.0 -3050 / -3050 Lab / Micro Data 08/27/23 05:45 08/27/23 05:45 Labs: Laboratory Results - last 24 hr 08/27/23 16:05: POC Glucose 252 H 08/27/23 21:18: POC Glucose 124 H 08/28/23 08:18: POC Glucose 157 H 08/28/23 11:23: POC Glucose 308 H Micro: Microbiology 08/26/23 20:40 Urine Catheter - Gaspar Urine Culture - Preliminary Gram negative jason Physical Exam Narrative alert, oriented x3 and no apparent distress General Appearance: cooperative, well kempt and well developed Orientation / Consciousness: awake, oriented to person, oriented to place and oriented to time HEENT normocephalic, head/scalp atraumatic and moist oral mucous membranes Eyes PERRL, EOMs intact bilaterally and conjunctivae normal Neck supple, no JVD, thyroid normal and no carotid bruits General: trachea midline Resp normal respiratory effort, no retractions, no use of accessory muscles and clearto auscultation bilaterally Auscultation: Negative for rales, rhonchi or wheezes Cardio regular rate, regular rhythm, S1 normal heart sound, S2 normal heart sound, no murmurs, no rub and no gallops GI normal to inspection, nondistended, normoactive bowel sounds, soft to palpation,non-tender and non-distended Extremity no clubbing, cyanosis or edema Skin no rashes or lesions noted General Skin Exam: no breakdown Neuro oriented x3, CN's II-XII intact bilaterally, no focal motor deficits and no sensory deficits noted Sensorium / Orientation: awake and alert Speech: speech normal Psych affect normal Assessment & Plan Assessment/Plan (1) Hematuria: (2) Acute urinary retention: PLAN: Plan 1. Acute hematuria with urinary retention -patient's Gaspar has been discontinued, she remains on Rocephin at this time, most likely she will need togo home on a few days of an antibiotic although I cannot verify that she has a cystitis. Patient's urine culture grew out only small amounts of a gram-negative jason. #2 type 2 diabetes-patient's blood sugars will be monitored, sliding scale insulin will be given as needed #3 acute blood loss anemia secondary to acute hematuria-patient's labs will be monitored as needed, she does not require blood transfusion at this time, H&H will be rechecked tomorrow #4 hypokalemia-patient will be given additional potassium #5 paroxysmal K-ied-mutbgio is on rate limiting medications, apixaban is being held #6 ischemic cardiomyopathy-her last echocardiogram showed a 45% EF, complicates care, medical course, recovery, and prognosis Total clinical time spent by myself addressing the patient's medical issues, reviewing all of her data, and collaborating with patient's care team: 35 minutes Charges/Coding Visit Charges Inpatient E&M: 98902 Subs Hosp L2 08/28/23 1544 <Electronically signed by Aidan Staples DO> Cosigner Signature (if applicable): CC: ~ Signed [facility] Work Phone: [phone]) 864-285403-23-2024 Consult note Author Emiliano Campoverde [facility] August 27, 2023 1:40pm Note Date/Time August 27, 2023 1:4 0pm [facility] Medical Records Department [address] [place] [address] Consultation - Urology 08/27/23 1338 MR#: [id number] Acct: [id number] Name: PITO HENDRIX KAYLIN Rep #:[id number] : 1970 52 From: Emiliano Campoverde MD PCP: Dr. Margo Tatum DO Status:ADM IN Location: [facility] [place] [place] [id number] Assessment & Plan Assessment/Plan (1) Acute urinary retention: PLAN: Continue with continuous bladder irrigation slowly slow it down we will try a voiding trial tomorrow probably (2) Hematuria: (3) Anticoagulated: HPI Consult Data Date of Consult: 08/27/23 HPI Narrative Reason for Consultation: Gross hematuria HPI Narrative: PITO HENDRIX, is a 52 F who presents to the hospital with gross hematuria she is anticoagulated for heart conditions, she presented with gross bleeding. Gaspar catheter has been placed and is on continuous irrigation and it is completely clear at this point she is having occasional spasms that cause of the irrigationto stop. Will continue with irrigation for now hold all blood thinners once thebleeding is stopped then will take out the catheter for voiding trial. [facility] Medical History Atherosclerotic heart disease of [place] coronary artery without angina pectoris Atrial fibrillation Benign hypertension Cardiomyopathy, ischemic Chronic low back pain Chronic nausea COPD (chronic obstructive pulmonary disease) Coronary artery disease COVID-19 virus infection Diabetes Difficult intubation Former smoker HFrEF (heart failure with reduced ejection fraction) Hirsutism History of non-ST elevation myocardial infarction (NSTEMI) (09/08/21) Hyperglycemia due to type 2 diabetes mellitus Hyperlipidemia Hypertension Hyperthyroidism Irregular heart beat Kidney stones Left bundle branch block (LBBB) Myocardial infarct Non-ischemic cardiomyopathy Non-ST elevation (NSTEMI) myocardial infarction Obesity Paroxysmal atrial fibrillation Presence of cardiac 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 therapy defibrillator (CRTT-D) Seizures Syncope Thyroid nodule Type 2 diabetes mellitus Vomiting Home Medications hydroxyzine HCl 25 mg tablet 25 - 50 mg PO QHS PRN anxiety 02/24/22 [History Last Taken Unknown] melatonin 10 mg tablet 10 mg PO HS PRN Insomnia 02/24/22 [History Last Taken Unknown] BD Ultra-Fine [place] Pen Needle 32 gauge x 5/32 (pen needle, diabetic) #100 ea 07/29/22 [Rx Last Taken Unknown] diphenhydramine HCl 25 mg tablet 25 mg PO Q4H PRN PRN Allergy Symptoms 08/06/22 [History Last Taken Unknown] hydrocodone-acetaminophen 5-325mg 5mg-325mg 1 tab PO DAILY Check with primary doctor 08/06/22 [History Last Taken 08/06/22 10:00] naloxegol 25 mg tablet (Movantik) 25 mg PO QAM Check with primary doctor 08/06/22 [History Last Taken Unknown] omeprazole magnesium 20 mg tablet,delayed release (Prilosec OTC) 20 mg PO DAILY Check with primary doctor 08/06/22 [History Last Taken Unknown] promethazine 25 mg tablet 25 mg PO TID PRN PRN Nausea And Vomiting 08/06/22 [History Last Taken Unknown] tizanidine 4 mg tablet 4 mg PO QHS 08/06/22 [History Last Taken 08/05/22] dapagliflozin propanediol 10 mg tablet (Farxiga) 10 mg PO DAILY 10/20/22 [History Last Taken Unknown] ibuprofen 200 mg tablet 200 mg PO Q6H PRN fever or pain 10/20/22 [History Last Taken Unknown] insulin glargine 100 unit/mL (3 mL) subcutaneous pen (Lantus Solostar U-100 Insulin) 23 unit subcut DAILY Check with primary doctor 10/20/22 [History Last Taken Unknown] insulin lispro 100 unit/mL subcutaneous pen (Humalog KwikPen (U-100) Insulin) 12unit subcut TIDCM Check with primary doctor 10/20/22 [History Last Taken Unknown] sacubitril 97 mg-valsartan 103 mg tablet (Entresto) 1 tab PO BID 10/20/22 [History Last Taken Unknown] flash glucose sensor (FreeStyle Sanam 2 Sensor kit) #2 ea 03/02/23 [Rx Last Taken Unknown] cholecalciferol (vitamin D3) 50 mcg (2,000 unit) capsule 1,000 unit PO DAILY 03/08/23 [History Last Taken Unknown] spironolactone 50 mg tablet 50 mg PO DAILY #90 tabs 03/08/23 [Rx Last Taken Unknown] carvedilol 25 mg tablet 25 mg PO BID Check with primary doctor #180 tabs 03/10/23 [Rx Last Taken Unknown] glipizide 10 mg tablet, extended release 24 hr 10 mg PO BID diabetes #180 tabs 03/14/23 [Rx Last Taken Unknown] methimazole 10 mg tablet 10 mg PO DAILY #90 tabs 03/14/23 [Rx Last Taken Unknown] clopidogrel 75 mg tablet (Plavix) 75 mg PO DAILY #90 tabs 05/16/23 [Rx Last Taken Unknown] apixaban 5 mg tablet (Eliquis) See Rx Instructions .Route .COMPLEX #180 tabs 05/31/23 [Rx Last Taken Unknown] atorvastatin 80 mg tablet See Rx Instructions .Route .COMPLEX #360 TABLETS 06/09/23 [Rx Last Taken Unknown] isosorbide mononitrate 30 mg tablet,extended release 24 hr See Rx Instructions .Route .COMPLEX #360 TABLETS 06/09/23 [Rx Last Taken Unknown] furosemide 40 mg tablet See Rx Instructions .Route .COMPLEX #90 TABLETS 07/04/23[Rx Last Taken Unknown] dulaglutide 1.5 mg/0.5 mL subcutaneous pen injector (Trulicity) 1.5 mg (0.5 mL) subcut QWEEK #2 mL 08/11/23 [Rx Last Taken Unknown] flash glucose scanning reader (Typeform Sanam 2 [place]) #1 ea 08/11/23 [Rx Last Taken Unknown] Allergy/AdvReac Type Severity Reaction Status Date / Time amoxicillin trihydrate AdvReac Vomiting Verified 08/26/23 18:21 [From Augmentin] potassium clavulanate AdvReac Vomiting Verified 08/26/23 18:21 [From Augmentin] Family History Father Myocardial infarction Cancer prostate, leukemia Agent orange exposure Diabetes Sister Diabetes COPD (chronic obstructive pulmonary disease) Mother CVA (cerebral vascular accident) Hypertension Surgical History History of appendectomy History of back surgery History of cholecystectomy (1991) History of cholecystectomy History of coronary artery stent placement (05/19/21) History of hysterectomy History of laparoscopy History of left heart catheterization (09/14/21) History of tonsillectomy Status post insertion of nerve stimulator Social History household members: significant other Smoking Status: Former smoker how long ago did patient quit smoking: Quit 1990, smoke 2 ppd since teen until quit. alcohol intake: current alcohol intake frequency: holidays/special occasions only substance use type: does not use caffeine: Yes Physical Exam Const alert and oriented x3 General Appearance: cooperative HEENT normocephalic, head/scalp atraumatic, EAC's normal and TM's normal bilaterally Eyes PERRL and EOMs intact bilaterally Pupil: sluggish Neck no lymphadenopathy, supple and no JVD General: trachea midline Lymph Lymphatic: no lymphadenopathy noted, lymphedema and lymphadenopathy Resp normal respiratory effort, normal air movement and clear to auscultation bilaterally Cardio regular rate, regular rhythm and peripheral pulses 2+ throughout GI soft to palpation, non-tender and non-distended Extremity normal capillary refill and no clubbing, cyanosis or edema General Extremity: no tenderness to palpation of joints or extremities Skin no rashes or lesions noted General Skin Exam: turgor normal Lesions: no lesions Rashes: no rashes Neuro CN's II-XII intact bilaterally Speech: speech normal Motor Exam: strength 5/5 throughout; Negative for general weakness Psych thought process normal, cooperative and affect normal Appearance: appropriate Medical Records Data Attestation: I reviewed the patient's medical records Lab / Micro Data 08/27/23 05:45 08/27/23 05:45 Labs: Laboratory Results - last 24 hr 08/26/23 19:10: WBC 5.1, RBC 4.05 L, Hgb 12.4, Hct 38.2, MCV 94.3, MCH 30.6, MCHC 32.5, RDW Std Deviation 46.1 H, RDW Coeff of Tomi 13.6, Plt Count 222, MPV 9.9, Immature Gran % (Auto) 0.400, Neut % (Auto) 66.1, Lymph % (Auto) 25.5, [place]% (Auto) 6.6, Eos % (Auto) 1.2, Baso % (Auto) 0.2, Absolute Neuts (auto) 3.4, Absolute Lymphs (auto) 1.31, Nucleated RBC % 0, Sodium 141, Potassium 3.1 L, Chloride 111 H, Carbon Dioxide 23.0, Anion Gap 7, BUN 20 H, Creatinine 0.86, Estim Creat Clear Calc 84.14, Est GFR (MDRD) Af Amer 88, Est GFR (MDRD) Non-Af 73, BUN/Creatinine Ratio 23.2 H, Glucose 179 H, Calcium 9.4, Magnesium 2.1 08/26/23 20:40: Urine Color Red, Urine Clarity Turbid, Urine pH 7.0, Ur SpecificGravity 1.010, Urine Protein 500 H, Urine Glucose (UA) 250 H, Urine Ketones Negative, Urine Occult Blood 150 H, Urine Nitrite Negative, Urine Bilirubin Negative, Urine Urobilinogen Normal, Ur Leukocyte Esterase Negative, Urine RBC >100 SEEN, Urine WBC 0 SEEN, Ur Squamous Epith Cells 0 SEEN, Urine Bacteria 2+, Urine Mucus 0 SEEN 08/27/23 00:50: POC Glucose 204 H 08/27/23 05:45: WBC 4.5, RBC 3.27 L, Hgb 10.2 L, Hct 31.3 L, MCV 95.7, MCH 31.2,MCHC 32.6, RDW Std Deviation 49.1 H, RDW Coeff of Tomi 14.0, Plt Count 212, MPV 9.9, Immature Gran % (Auto) 0.200, Neut % (Auto) 48.2, Lymph % (Auto) 38.4, [place]% (Auto) 11.2 H, Eos % (Auto) 1.8, Baso % (Auto) 0.2, Absolute Neuts (auto) 2.1,Absolute Lymphs (auto) 1.71, Nucleated RBC % 0, Sodium 141, Potassium 3.2 L, Chloride 112 H, Carbon Dioxide 23.0, Anion Gap 6, BUN 16, Creatinine 0.83, EstimCreat Clear Calc 87.69, Est GFR (MDRD) Af Amer 93, Est GFR (MDRD) Non-Af 77, BUN/Creatinine Ratio 19.4, Glucose 215 H, Calcium 8.3 L, Total Bilirubin 0.50, AST 13 L, ALT 16, Alkaline Phosphatase 71, Total Protein 6.1 L, Albumin 2.9 L, Globulin 3.2, Albumin/Globulin Ratio 0.9 08/27/23 11:23: POC Glucose 182 H Micro: Microbiology 08/26/23 20:40 Urine Catheter - Gaspar Urine Culture - Preliminary Gram negative jason Imaging Radiology Impression Abdomen/Pelvis CT 08/26/23 19:46 IMPRESSION: * There is diffuse bladder wall thickening and pericecal fat stranding which may represent cystitis, with indwelling Gaspar catheter. There may be asymmetric thickening of the right posterolateral bladder wall. Consider cystoscopy for further evaluation and to exclude underlying malignancy. * Nonobstructive calculi in the lower pole of the right kidney are unchanged. * Unchanged nonobstructive calculi, lower pole right kidney. * Cholecystectomy, appendectomy and hysterectomy. Electronically Signed: Dean Lovell MD at 21:47 EDT , 08/27/23 1340 <Electronically signed by Emiliano Campoverde MD> Cosigner Signature (if applicable): CC: Dr. Perlita Gómez MD; Dr. Emiliano Campoverde MD; Dr. Margo Tatum, DO~ Signed [facility] Work Phone: 1(355) 634-789203-23-2024 Progress note Author Aidan Staples [facility] August 27, 2023 10:20am Note Date/Time August 27, 2023 10: 20am [facility] Medical Records Department [address] [place] [id number] Progress Note - Hospitalist 08/27/23 1012 MR#: [id number] Acct: [id number] Name: PITO HENDRIX KAYLIN Rep #:[id number] : 1970 52 From: Aidan Staples DO PCP: Dr. Margo Tatum DO Status:ADM IN Location: [facility] – [place] [id number] Reason for Visit Reason for Visit: Diagnoses Hematuria, unspecified (08/26/23) Other retention of urine (08/26/23) Subjective Subjective Patient was seen and examined today, cording to nursing there were still clots in the patient's Gaspar after flushing the bladder, urology has not seen the patient in consultation. Patient's hemoglobin this morning dropped to 10.2 from12.4. Potassium was slightly low at 3.2. Objective Data Objective Data Vital Signs: Vital Signs Temp Pulse Resp BP Pulse Ox O2 Del Method 98.6 F 83 16 98/48 L 98 Room Air 08/27/23 05:54 08/27/23 05:54 08/27/23 05:54 08/27/23 05:54 08/27/23 05:54 08/27/23 05:54 Oxygen Delivery Method Room Air Weight: 95.1 kg Body Mass Index (BMI) 35.8 Intake & Output: Intake and Output for Last 24 Hours 08/25/23 08/26/23 08/27/23 23:59 23:59 23:59 Intake Total 62.5 / 62.5 Output Total 1700 / 1700 1400 / 1400 Balance -1700 / -1700 -1337.5 / -1337.5 Lab / Micro Data 08/27/23 05:45 08/27/23 05:45 Labs: Laboratory Results - last 24 hr 08/26/23 19:10: WBC 5.1, RBC 4.05 L, Hgb 12.4, Hct 38.2, MCV 94.3, MCH 30.6, MCHC 32.5, RDW Std Deviation 46.1 H, RDW Coeff of Tomi 13.6, Plt Count 222, MPV 9.9, Immature Gran % (Auto) 0.400, Neut % (Auto) 66.1, Lymph % (Auto) 25.5, [place]% (Auto) 6.6, Eos % (Auto) 1.2, Baso % (Auto) 0.2, Absolute Neuts (auto) 3.4, Absolute Lymphs (auto) 1.31, Nucleated RBC % 0, Sodium 141, Potassium 3.1 L, Chloride 111 H, Carbon Dioxide 23.0, Anion Gap 7, BUN 20 H, Creatinine 0.86, Estim Creat Clear Calc 84.14, Est GFR (MDRD) Af Amer 88, Est GFR (MDRD) Non-Af 73, BUN/Creatinine Ratio 23.2 H, Glucose 179 H, Calcium 9.4, Magnesium 2.1 08/26/23 20:40: Urine Color Red, Urine Clarity Turbid, Urine pH 7.0, Ur SpecificGravity 1.010, Urine Protein 500 H, Urine Glucose (UA) 250 H, Urine Ketones Negative, Urine Occult Blood 150 H, Urine Nitrite Negative, Urine Bilirubin Negative, Urine Urobilinogen Normal, Ur Leukocyte Esterase Negative, Urine RBC >100 SEEN, Urine WBC 0 SEEN, Ur Squamous Epith Cells 0 SEEN, Urine Bacteria 2+, Urine Mucus 0 SEEN 08/27/23 00:50: POC Glucose 204 H 08/27/23 05:45: WBC 4.5, RBC 3.27 L, Hgb 10.2 L, Hct 31.3 L, MCV 95.7, MCH 31.2,MCHC 32.6, RDW Std Deviation 49.1 H, RDW Coeff of Tomi 14.0, Plt Count 212, MPV 9.9, Immature Gran % (Auto) 0.200, Neut % (Auto) 48.2, Lymph % (Auto) 38.4, [place]% (Auto) 11.2 H, Eos % (Auto) 1.8, Baso % (Auto) 0.2, Absolute Neuts (auto) 2.1,Absolute Lymphs (auto) 1.71, Nucleated RBC % 0, Sodium 141, Potassium 3.2 L, Chloride 112 H, Carbon Dioxide 23.0, Anion Gap 6, BUN 16, Creatinine 0.83, EstimCreat Clear Calc 87.69, Est GFR (MDRD) Af Amer 93, Est GFR (MDRD) Non-Af 77, BUN/Creatinine Ratio 19.4, Glucose 215 H, Calcium 8.3 L, Total Bilirubin 0.50, AST 13 L, ALT 16, Alkaline Phosphatase 71, Total Protein 6.1 L, Albumin 2.9 L, Globulin 3.2, Albumin/Globulin Ratio 0.9 Radiography Diagnostic Testing: Radiology Impression Abdomen/Pelvis CT 08/26/23 19:46 IMPRESSION: * There is diffuse bladder wall thickening and pericecal fat stranding which may represent cystitis, with indwelling Gaspar catheter. There may be asymmetric thickening of the right posterolateral bladder wall. Consider cystoscopy for further evaluation and to exclude underlying malignancy. * Nonobstructive calculi in the lower pole of the right kidney are unchanged. * Unchanged nonobstructive calculi, lower pole right kidney. * Cholecystectomy, appendectomy and hysterectomy. Electronically Signed: Dean Lovell MD at 21:47 EDT Reading Location ID and State: [address] [place] [address] Tel , Service support , Physical Exam Const alert, oriented x3 and no apparent distress General Appearance: cooperative, well kempt and well developed Orientation / Consciousness: awake, oriented to person, oriented to place and oriented to time HEENT normocephalic, head/scalp atraumatic and moist oral mucous membranes Eyes PERRL, EOMs intact bilaterally and conjunctivae normal Neck supple, no JVD, thyroid normal and no carotid bruits General: trachea midline Resp normal respiratory effort, no retractions, no use of accessory muscles and clearto auscultation bilaterally Auscultation: Negative for rales, rhonchi or wheezes Cardio regular rate, regular rhythm, S1 normal heart sound, S2 normal heart sound, no murmurs, no rub and no gallops GI normal to inspection, nondistended, normoactive bowel sounds, soft to palpation,non-tender and non-distended Extremity no clubbing, cyanosis or edema Skin no rashes or lesions noted General Skin Exam: no breakdown Neuro oriented x3, CN's II-XII intact bilaterally, no focal motor deficits and no sensory deficits noted Sensorium / Orientation: awake and alert Speech: speech normal Psych affect normal Assessment & Plan Assessment/Plan (1) Acute urinary retention: PLAN: Plan 1. Acute hematuria with urinary retention secondary to clots-patient will continue bladder irrigation, she will be seen in consultation by urology, patient's Eliquis will be held #2 type 2 diabetes-patient's blood sugars will be monitored, sliding scale insulin will be given as needed #3 acute blood loss anemia secondary to acute hematuria-patient's labs will be monitored as needed, she does not require blood transfusion at this time #4 hypokalemia-patient will be given additional potassium #5 paroxysmal S-[id number] is on rate limiting medications, apixaban is being held #6 ischemic cardiomyopathy-her last echocardiogram showed a 45% EF, complicates care, medical course, recovery, and prognosis Total clinical time spent by myself addressing the patient's medical issues, reviewing all of her data, and collaborating with patient's care team: 35 minutes Charges/Coding Visit Charges Inpatient E&M: 44130 Subs Hosp L2 08/27/23 1020 <Electronically signed by Aidan Staples DO> Cosigner Signature (if applicable): CC: ~ Signed [facility] Work Phone: 1(136) 166-481103-23-2024 History and physical note Author Perlita Gómez [facility] August 26, 2023 11:03pm Note Date/Time August 26, 2023 10: 40pm [facility] Medical Records Department [address] [place] [address] H&P Exam - Hospitalist 08/26/236 MR#: [id number] Acct: [id number] Name: PITO HENDRIX KAYLIN Rep #:[id number] : 1970 52 From: Perlita Gómez MD PCP: Dr. Margo Tatum, DO Status:ADM IN Location: [facility] [id number] HPI - General General Date of Admission: 08/26/23 Date of Service: 08/26/23 Chief Complaint: Hematuria HPI Narrative The patient is a 52 y/o F w/ PMHx: Obesity, CAD s/p PCI, Hyperthyroidism, PAF, HTN, HLD, HFrEF/Ischemic cardiomyopathy, Chronic low back pain status post insertion nerve stimulator, COPD, Diabetes mellitus type II, Former tobacco use who presents to the [facility] ED on 08/26/23 with history of significant hematuria throughout the day with notable blood clots with onset of worsening urinary retention noting difficulty urinating secondary to having to push out the clots with no recent dysuria or frequency prior to this onset but she has had bladder infections in the past however this is never occurred and given she was anticoagulated because of concern prompting eventual ED evaluation. She notes discomfort now 08/13 but attributes it to the gaspar and noted prior she had no pain but pressure in the suprapubic region. Workup in the ED included T97.1, heart rate 110, BP 141/83, respiratory rate 22, 100% on room air, CBC with WBC 5.1, hemoglobin 12.4, platelet 222 without marked shift, BMP with potassium 3.1,chloride 111, BUN/creatinine 20/0.86, glucose 179, urinalysis with protein 500, glucose 250, negative ketone, occult blood 150, negative nitrite, urine RBCs greater than 100 with 2+ urine bacteria, urine culture pending per ED, CT abdomen and pelvis with diffuse bladder wall thickening and pericecal fat stranding possibly field representative/health education of cystitis with an indwelling Gaspar catheter with possibly asymmetric thickening of the right posterior lateral bladder wall,nonobstructive calculi in the lower pole of the right kidney unchanged, status post previous cholecystectomy, appendectomy, hysterectomy evident. In the ED patient ministered morphine 4 mg IV x 1. ED discussed case with Dr. Campoverde who will evaluate patient and possibly perform cystoscopy. In the ED CBI started. [facility] Medical History (Updated 08/26/23 @ 22:[address] Perlita Gómez MD) Atherosclerotic heart disease of [place] coronary artery without angina pectoris Atrial fibrillation Benign hypertension Cardiomyopathy, ischemic Chronic low back pain Chronic nausea COPD (chronic obstructive pulmonary disease) Coronary artery disease COVID-19 virus infection Diabetes Difficult intubation Former smoker HFrEF (heart failure with reduced ejection fraction) Hirsutism History of non-ST elevation myocardial infarction (NSTEMI) (09/08/21) Hyperglycemia due to type 2 diabetes mellitus Hyperlipidemia Hypertension Hyperthyroidism Irregular heart beat Kidney stones Left bundle branch block (LBBB) Myocardial infarct Non-ischemic cardiomyopathy Non-ST elevation (NSTEMI) myocardial infarction Obesity Paroxysmal atrial fibrillation Presence of cardiac 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 therapy defibrillator (CRTT-D) Seizures Syncope Thyroid nodule Type 2 diabetes mellitus Vomiting Home Medications hydroxyzine HCl 25 mg tablet 25 - 50 mg PO QHS PRN anxiety 02/24/22 [History Last Taken Unknown] melatonin 10 mg tablet 10 mg PO HS PRN Insomnia 02/24/22 [History Last Taken Unknown] BD Ultra-Fine [place] Pen Needle 32 gauge x 5/32 (pen needle, diabetic) #100 ea 07/29/22 [Rx Last Taken Unknown] diphenhydramine HCl 25 mg tablet 25 mg PO Q4H PRN PRN Allergy Symptoms 08/06/22 [History Last Taken Unknown] hydrocodone-acetaminophen 5-325mg 5mg-325mg 1 tab PO DAILY Check with primary doctor 08/06/22 [History Last Taken 08/06/22 10:00] naloxegol 25 mg tablet (Movantik) 25 mg PO QAM Check with primary doctor 08/06/22 [History Last Taken Unknown] omeprazole magnesium 20 mg tablet,delayed release (Prilosec OTC) 20 mg PO DAILY Check with primary doctor 08/06/22 [History Last Taken Unknown] promethazine 25 mg tablet 25 mg PO TID PRN PRN Nausea And Vomiting 08/06/22 [History Last Taken Unknown] tizanidine 4 mg tablet 4 mg PO QHS 08/06/22 [History Last Taken 08/05/22] dapagliflozin propanediol 10 mg tablet (Farxiga) 10 mg PO DAILY 10/20/22 [History Last Taken Unknown] ibuprofen 200 mg tablet 200 mg PO Q6H PRN fever or pain 10/20/22 [History Last Taken Unknown] insulin glargine 100 unit/mL (3 mL) subcutaneous pen (Lantus Solostar U-100 Insulin) 23 unit subcut DAILY Check with primary doctor 10/20/22 [History Last Taken Unknown] insulin lispro 100 unit/mL subcutaneous pen (Humalog KwikPen (U-100) Insulin) 12unit subcut TIDCM Check with primary doctor 10/20/22 [History Last Taken Unknown] sacubitril 97 mg-valsartan 103 mg tablet (Entresto) 1 tab PO BID 10/20/22 [History Last Taken Unknown] flash glucose sensor (FreeStyle Sanam 2 Sensor kit) #2 ea 03/02/23 [Rx Last Taken Unknown] cholecalciferol (vitamin D3) 50 mcg (2,000 unit) capsule 1,000 unit PO DAILY 03/08/23 [History Last Taken Unknown] spironolactone 50 mg tablet 50 mg PO DAILY #90 tabs 03/08/23 [Rx Last Taken Unknown] carvedilol 25 mg tablet 25 mg PO BID Check with primary doctor #180 tabs 03/10/23 [Rx Last Taken Unknown] glipizide 10 mg tablet, extended release 24 hr 10 mg PO BID diabetes #180 tabs 03/14/23 [Rx Last Taken Unknown] methimazole 10 mg tablet 10 mg PO DAILY #90 tabs 03/14/23 [Rx Last Taken Unknown] clopidogrel 75 mg tablet (Plavix) 75 mg PO DAILY #90 tabs 05/16/23 [Rx Last Taken Unknown] apixaban 5 mg tablet (Eliquis) See Rx Instructions .Route .COMPLEX #180 tabs 05/31/23 [Rx Last Taken Unknown] atorvastatin 80 mg tablet See Rx Instructions .Route .COMPLEX #360 TABLETS 06/09/23 [Rx Last Taken Unknown] isosorbide mononitrate 30 mg tablet,extended release 24 hr See Rx Instructions .Route .COMPLEX #360 TABLETS 06/09/23 [Rx Last Taken Unknown] furosemide 40 mg tablet See Rx Instructions .Route .COMPLEX #90 TABLETS 07/04/23[Rx Last Taken Unknown] dulaglutide 1.5 mg/0.5 mL subcutaneous pen injector (Trulicity) 1.5 mg (0.5 mL) subcut QWEEK #2 mL 08/11/23 [Rx Last Taken Unknown] flash glucose scanning reader (FreeStyle Sanam 2 [place]) #1 ea 08/11/23 [Rx Last Taken Unknown] Allergy/AdvReac Type Severity Reaction Status Date / Time amoxicillin trihydrate AdvReac Vomiting Verified 08/26/23 18:21 [From Augmentin] potassium clavulanate AdvReac Vomiting Verified 08/26/23 18:21 [From Augmentin] Family History Father Myocardial infarction Cancer prostate, leukemia Agent orange exposure Diabetes Sister Diabetes COPD (chronic obstructive pulmonary disease) Mother CVA (cerebral vascular accident) Hypertension Surgical History History of appendectomy History of back surgery History of cholecystectomy (1991) History of cholecystectomy History of coronary artery stent placement (05/19/21) History of hysterectomy History of laparoscopy History of left heart catheterization (09/14/21) History of tonsillectomy Status post insertion of nerve stimulator Social History (Updated 08/26/23 @ 23:[address] Perlita Gómez MD) household members: significant other Smoking Status: Former smoker how long ago did patient quit smoking: Quit 1990, smoke 2 ppd since teen until quit. alcohol intake: current alcohol intake frequency: holidays/special occasions only substance use type: does not use caffeine: Yes ROS ROS Narrative Admission Review of Systems: CONSTITUTIONAL: No weight loss, fever, chills, + weakness or fatigue. HEENT: Eyes: No visual loss, blurred vision, double vision or yellow sclerae. Ears, Nose, Throat: No hearing loss, sneezing, congestion, runny nose or sore throat. SKIN: No rash or itching, lesions, wounds. CARDIOVASCULAR: No chest pain, chest pressure or chest discomfort, palpitations,edema, orthopnea, syncopal events. RESPIRATORY: No shortness of breath, cough or sputum, wheezing, hemoptysis. GASTROINTESTINAL: No anorexia, nausea, vomiting or diarrhea, abdominal pain, melena, BRBPR. GENITOURINARY: + Suprapubic pressure and hematuria. No dysuria or urgency reported. NEUROLOGICAL: No headache, dizziness, syncope, paralysis, ataxia, numbness or tingling in the extremities, focal weakness, change in bowel or bladder control,seizure. MUSCULOSKELETAL: + muscle, back pain, joint pain or stiffness. HEMATOLOGIC: + anemia, easy bleeding/bruising. LYMPHATICS: No enlarged nodes. No history of splenectomy. PSYCHIATRIC: No history of depression or anxiety. ENDOCRINOLOGIC: No reports of sweating, cold or heat intolerance. No polyuria orpolydipsia. ALLERGIES: No history of asthma, hives, eczema or rhinitis. Vital Signs Vital Signs Vital Signs: 08/26/23 18:21 08/26/23 21:09 Temperature 97.1 F L Temperature Source Temporal Pulse Rate 110 H 106 H Respiratory Rate 22 H 16 Blood Pressure 141/83 H 140/60 H Blood Pressure Mean 102 86 Pulse Ox 100 Oxygen Delivery Method Room Air Weight Weight: 207 lb 6.4 oz Body Mass Index (BMI) 35.6 Physical Exam Narrative Physical Examination: General: Awake, alert, oriented x 3 and cooperative, seated upright in the ED bed, mildly uncomfortable, reports discomfort 3 out of 10 in severity secondary to Gaspar and reports prior to this she only had suprapubic pressure. Skin: Normal color, normal turgor, no icterus, no cyanosis. HEENT: AT/NC, EOMI, PERRLA, mildly dry MM, no carotid bruits or JVD noted. Lungs: Mildly diminished, greater bases, appropriate effort although mildly increased respiratory rate but no distress noted, no rales, ronchi or wheezing. Heart: Currently regular rate and rhythm; no gallop, rub audible. Abdomen: Soft, obese, mild discomfort with palpation of the suprapubic region otherwise abdomen NTTP, ND, hyperactive BS, no appreciated HSM. Extremities: No cyanosis, clubbing, or edema. Neurological: Patient awake, alert, oriented as noted, cognitive function intact; pupils equally reactive to light and accommodation, cranial nerves II-XII grossly normal, moving all 4 extremities, no focal deficits, strength mildlyto moderately globally decreased secondary to acute complaints as well as CBI system in place. Psychiatric: Affect appears mildly uncomfortable, fatigued, no acute evidence ofdepressive or anxiety feelings. Results Lab / Micro Data 08/26/23 19:10 08/26/23 19:10 Labs: Laboratory Results - last 24 hr 08/26/23 19:10: WBC 5.1, RBC 4.05 L, Hgb 12.4, Hct 38.2, MCV 94.3, MCH 30.6, MCHC 32.5, RDW Std Deviation 46.1 H, RDW Coeff of Tomi 13.6, Plt Count 222, MPV 9.9, Immature Gran % (Auto) 0.400, Neut % (Auto) 66.1, Lymph % (Auto) 25.5, [place]% (Auto) 6.6, Eos % (Auto) 1.2, Baso % (Auto) 0.2, Absolute Neuts (auto) 3.4, Absolute Lymphs (auto) 1.31, Nucleated RBC % 0, Sodium 141, Potassium 3.1 L, Chloride 111 H, Carbon Dioxide 23.0, Anion Gap 7, BUN 20 H, Creatinine 0.86, Estim Creat Clear Calc 84.14, Est GFR (MDRD) Af Amer 88, Est GFR (MDRD) Non-Af 73, BUN/Creatinine Ratio 23.2 H, Glucose 179 H, Calcium 9.4 08/26/23 20:40: Urine Color Red, Urine Clarity Turbid, Urine pH 7.0, Ur SpecificGravity 1.010, Urine Protein 500 H, Urine Glucose (UA) 250 H, Urine Ketones Negative, Urine Occult Blood 150 H, Urine Nitrite Negative, Urine Bilirubin Negative, Urine Urobilinogen Normal, Ur Leukocyte Esterase Negative, Urine RBC >100 SEEN, Urine WBC 0 SEEN, Ur Squamous Epith Cells 0 SEEN, Urine Bacteria 2+, Urine Mucus 0 SEEN Imaging Radiology Impression Abdomen/Pelvis CT 08/26/23 19:46 IMPRESSION: * There is diffuse bladder wall thickening and pericecal fat stranding which may represent cystitis, with indwelling Gaspar catheter. There may be asymmetric thickening of the right posterolateral bladder wall. Consider cystoscopy for further evaluation and to exclude underlying malignancy. * Nonobstructive calculi in the lower pole of the right kidney are unchanged. * Unchanged nonobstructive calculi, lower pole right kidney. * Cholecystectomy, appendectomy and hysterectomy. Electronically Signed: Dean Lovell MD at 21:47 EDT , Assessment & Plan Assessment/Plan (1) Acute urinary retention: (2) Hematuria: PLAN: Plan The patient is a 52 y/o F w/ PMHx: Obesity, CAD s/p PCI, Hyperthyroidism, PAF, HTN, HLD, HFrEF/Ischemic cardiomyopathy, Chronic low back pain status post insertion nerve stimulator, COPD, Diabetes mellitus type II, Former tobacco use who presents to the [facility] ED on 08/26/23 with history of significant hematuria throughout the day with notable blood clots with onset of worsening urinary retention noting difficulty urinating secondary to having to push out the clots with no recent dysuria or frequency prior to this onset but she has had bladder infections in the past however this is never occurred and given she was anticoagulated because of concern prompting eventual ED evaluation. #1. Acute urinary retention with possible acute complicated urinary tract infection with acute hematuria with evidence of mild acute blood loss anemia: Admission hemoglobin 12.4, most recent prior to this 08/02/2023 hemoglobin 13 although has previously vacillated thus currently blood loss is not severe, given retention Gaspar catheter placed in the ED, given 2+ urine bacteria noted although no obvious evidence of UTI to be cautious in the interim will place on IV Rocephin therapy, urology consulted and evaluation pending, will maintain n.p.o. status after midnight for suspected a.m. cystoscopy needs, will maintain ED initiated continuous bladder irrigation, will trend CBC. #2. Hypokalemia: Admission K+ 3.1, magnesium level requested, supplementation given, repeat level in AM. #3. CAD: Status post previous PCI, given acute presentation with hematuria withprevious intervention will cautiously continue Plavix if urology amenable however holding apixaban regimen, continue Coreg, Entresto, statin therapy. #4. HFrEF/ischemic cardiomyopathy: Status post previous CRTT-D [place], most recently assessed 07/25/2023, will cautiously hydrate given presentation, will continue patient home Plavix cautiously if amenable per urology, holding Eliquis as noted, continue Coreg, Entresto, spironolactone, Lasix regimen given appropriate renal function and BP, low threshold to hold however if status changes. Most recent echocardiogram noted 12/16/2022 with normal LV size, LVEF 45%, stage I diastolic dysfunction. #5. Chronic COPD: Per current list not on chronic regimen, if necessary may addATC budesonide otherwise will maintain PRN albuterol, HOB, IS parameters. #6. Hypertension: Continue home regimen including spironolactone, Entresto, isosorbide, Lasix, Coreg given appropriate renal function at this time and no evidence of hypotension, PRN hydralazine. #7. Hyperlipidemia: We will continue patient on statin therapy. #8. PAF: We will temporarily hold patient home apixaban especially given acute presentation with hematuria, will continue patient home Coreg regimen. #9. Diabetes mellitus type II: Hold oral home regimen, continue home insulin regimen, ADA diet, accu checks w/ ISS. #10. Obesity: Weight loss and lifestyle changes encouraged. #11. Former tobacco use: Encourage continued tobacco cessation. #12. GERD: We will continue patient on PPI. #13. Hyperthyroidism: We will continue patient home methimazole regimen. #14. DVT prophylaxis: Holding patient home Eliquis regimen given presentation as noted #1. #15. CODE status: Patient OBB is her significant other Dani who is present as well as Virgen New her sister and Aj and Chance her 2 sons and living richard currently in place. Discussed CODE status at length including difference between FULL code, DNR-CCA and DNR-CC status. Following discussions about the differences in these status, requested Full Code status. Advanced Care Planning Face to Face Time: 16 minutes. Charges/Coding Visit Charges Inpatient E&M: 70514 Init Hosp L3 Procedures Hospitalists Procedures: 07879 Advncd Care Plan 30 Min 08/26/23 2303 <Electronically signed by Perlita Gómez MD> Cosigner Signature (if applicable): CC: Dr. Perlita Gómez MD; Dr. Margo Tatum DO~ Signed [facility] Work Phone: 1(276) 634-763003-23-2024 Discharge summary Author Rell Loera [facility] August 26, 2023 10:41pm Note Date/Time August 26, 2023 7:5 2pm [facility] Medical Records Department [address] [place] [address] Emergency Department Summary 08/26/23 MR#: [id number] Acct: [id number] Name: PITO HENDRIX KAYLIN Rep #:[id number] : 1970 52 From: Rell Loera MD PCP: Dr. Margo Tatum DO Status:REG ER Location: ED HPI HPI - Female History of Present Illness Chief Complaint: Complaint Informant: patient Narrative Narrative: Patient with hematuria all day today. She states she is urinating clots. She has had symptoms of urinary retention, at times she is able to push hard and urinate out some of the clots. She denies any dysuria or frequency or symptoms prior to that to the hematuria. She states she has had bladder infections in the past, she usually knows when they are coming on and she has had none of thatthis time. She has never had this before. It is gross hematuria with clots. She is on apixaban for history of atrial fibrillation. [facility] Medical History Atherosclerotic heart disease of [place] coronary artery without angina pectoris Atrial fibrillation Benign hypertension Bilateral interstitial pneumonia Cardiomyopathy, ischemic Chest pain Chronic low back pain Chronic nausea Chronic pain COPD (chronic obstructive pulmonary disease) Coronary artery disease COVID-19 virus infection Diabetes Difficult intubation Former smoker HFrEF (heart failure with reduced ejection fraction) Hirsutism History of non-ST elevation myocardial infarction (NSTEMI) (09/08/21) Hyperglycemia due to type 2 diabetes mellitus Hyperlipidemia Hypertension Irregular heart beat Kidney stones Left bundle branch block (LBBB) Myocardial infarct Non-ischemic cardiomyopathy Non-ST elevation (NSTEMI) myocardial infarction Nonobstructive atherosclerosis of coronary artery Obesity Paroxysmal atrial fibrillation Presence of cardiac 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 therapy defibrillator (CRTT-D) Seizures Syncope Thyroid nodule Type 2 diabetes mellitus Vomiting Home Medications hydroxyzine HCl 25 mg tablet 25 - 50 mg PO QHS PRN anxiety 02/24/22 [History Last Taken Unknown] melatonin 10 mg tablet 10 mg PO HS PRN Insomnia 02/24/22 [History Last Taken Unknown] BD Ultra-Fine [place] Pen Needle 32 gauge x 5/32 (pen needle, diabetic) #100 ea 07/29/22 [Rx Last Taken Unknown] diphenhydramine HCl 25 mg tablet 25 mg PO Q4H PRN PRN Allergy Symptoms 08/06/22 [History Last Taken Unknown] hydrocodone-acetaminophen 5-325mg 5mg-325mg 1 tab PO DAILY Check with primary doctor 08/06/22 [History Last Taken 08/06/22 10:00] naloxegol 25 mg tablet (Movantik) 25 mg PO QAM Check with primary doctor 08/06/22 [History Last Taken Unknown] omeprazole magnesium 20 mg tablet,delayed release (Prilosec OTC) 20 mg PO DAILY Check with primary doctor 08/06/22 [History Last Taken Unknown] promethazine 25 mg tablet 25 mg PO TID PRN PRN Nausea And Vomiting 08/06/22 [History Last Taken Unknown] tizanidine 4 mg tablet 4 mg PO QHS 08/06/22 [History Last Taken 08/05/22] dapagliflozin propanediol 10 mg tablet (Farxiga) 10 mg PO DAILY 10/20/22 [History Last Taken Unknown] ibuprofen 200 mg tablet 200 mg PO Q6H PRN fever or pain 10/20/22 [History Last Taken Unknown] insulin glargine 100 unit/mL (3 mL) subcutaneous pen (Lantus Solostar U-100 Insulin) 23 unit subcut DAILY Check with primary doctor 10/20/22 [History Last Taken Unknown] insulin lispro 100 unit/mL subcutaneous pen (Humalog KwikPen (U-100) Insulin) 12unit subcut TIDCM Check with primary doctor 10/20/22 [History Last Taken Unknown] sacubitril 97 mg-valsartan 103 mg tablet (Entresto) 1 tab PO BID 10/20/22 [History Last Taken Unknown] flash glucose sensor (FreeStyle Sanam 2 Sensor kit) #2 ea 03/02/23 [Rx Last Taken Unknown] cholecalciferol (vitamin D3) 50 mcg (2,000 unit) capsule 1,000 unit PO DAILY 03/08/23 [History Last Taken Unknown] spironolactone 50 mg tablet 50 mg PO DAILY #90 tabs 03/08/23 [Rx Last Taken Unknown] carvedilol 25 mg tablet 25 mg PO BID Check with primary doctor #180 tabs 03/10/23 [Rx Last Taken Unknown] glipizide 10 mg tablet, extended release 24 hr 10 mg PO BID diabetes #180 tabs 03/14/23 [Rx Last Taken Unknown] methimazole 10 mg tablet 10 mg PO DAILY #90 tabs 03/14/23 [Rx Last Taken Unknown] clopidogrel 75 mg tablet (Plavix) 75 mg PO DAILY #90 tabs 05/16/23 [Rx Last Taken Unknown] apixaban 5 mg tablet (Eliquis) See Rx Instructions .Route .COMPLEX #180 tabs 05/31/23 [Rx Last Taken Unknown] atorvastatin 80 mg tablet See Rx Instructions .Route .COMPLEX #360 TABLETS 06/09/23 [Rx Last Taken Unknown] isosorbide mononitrate 30 mg tablet,extended release 24 hr See Rx Instructions .Route .COMPLEX #360 TABLETS 06/09/23 [Rx Last Taken Unknown] furosemide 40 mg tablet See Rx Instructions .Route .COMPLEX #90 TABLETS 07/04/23[Rx Last Taken Unknown] dulaglutide 1.5 mg/0.5 mL subcutaneous pen injector (Trulicity) 1.5 mg (0.5 mL) subcut QWEEK #2 mL 08/11/23 [Rx Last Taken Unknown] flash glucose scanning reader (Typeform Sanam 2 [place]) #1 ea 08/11/23 [Rx Last Taken Unknown] Allergy/AdvReac Type Severity Reaction Status Date / Time amoxicillin trihydrate AdvReac Vomiting Verified 08/26/23 18:21 [From Augmentin] potassium clavulanate AdvReac Vomiting Verified 08/26/23 18:21 [From Augmentin] Family History Father Myocardial infarction Cancer prostate, leukemia Agent orange exposure Diabetes Sister Diabetes COPD (chronic obstructive pulmonary disease) Surgical History History of appendectomy History of back surgery History of cholecystectomy (1991) History of cholecystectomy History of coronary artery stent placement (05/19/21) History of hysterectomy History of laparoscopy History of left heart catheterization (09/14/21) History of tonsillectomy Status post insertion of nerve stimulator Social History household members: significant other Smoking Status: Former smoker how long ago did patient quit smokin alcohol intake: current alcohol intake frequency: holidays/special occasions only substance use type: does not use caffeine: Yes ROS ROS ED Constitutional Constitutional ED: Denies chills or fever(s) Eyes Eyes: Denies change in vision or diplopia ENT ENT ED: Denies rhinorrhea or sore throat Cardiovascular Cardiovascular: Denies chest pain or palpitations Respiratory/Chest Respiratory/Chest: Denies cough or dyspnea Gastrointestinal Gastrointestinal: Reports abdominal pain; Denies diarrhea, nausea or vomiting Genitourinary Genitourinary ED: Reports as per HPI, difficulty urinating, hematuria and urinary frequency; Denies dysuria Musculoskeletal Musculoskeletal: Denies back pain or neck pain Integumentary Denies abscess or rash Neurologic Neurologic: Denies headache(s), paresthesias or weakness Psychiatric Psychiatric: Denies anxiety or suicidal thoughts EXAM Physical Exam Const Vital Signs: 08/26/23 18:21 08/26/23 21:09 Temperature 97.1 F L Temperature Source Temporal Pulse Rate 110 H 106 H Respiratory Rate 22 H 16 Blood Pressure 141/83 H 140/60 H Blood Pressure Mean 102 86 Pulse Ox 100 Oxygen Delivery Method Room Air Positive well nourished and well developed General Appearance ED: well developed and NAD HEENT Reports moist mucous membranes normocephalic and atraumatic Eyes PERRL and EOMs intact bilaterally Neck full ROM and supple Resp normal respiratory effort and clear to auscultation bilaterally Cardio regular rate, regular rhythm and no murmurs GI non-tender and non-distended Auscultation: normoactive bowel sounds Palpation: soft Back/Spine no CVA tenderness General Back: other FROM Extremity normal to inspection General Extremety ED: Negative for edema, pulses abnormal or tenderness General Extremity: Negative for edema or pulses abnormal Neuro oriented x3, CN's II-XII intact bilaterally and no sensory deficits noted Sensorium / Orientation: awake and alert Motor Exam: strength 5/5 throughout Skin no rashes or lesions noted and no wounds MDM MDM MDM Narrative Medical decision making narrative: We catheterized the patient and were able to get out gross hematuria, continuousbladder irrigation was performed and after a bag was finished she continues to bleed, as the urine output turned bright red blood again. Her blood count looksstable, her last hemoglobin was about 13 now it is 12.4, renal function is normal, and the urine does not appear to be infected. Therefore sent her for CTof the abdomen/pelvis, with IV contrast. I reviewed the images and report whichI agree with, it shows asymmetric posterior bladder wall thickening, they recommend correlation with cystoscopy. I discussed with urology Dr. Campoverde, whoagrees that continuing CBI and admitting to hospitalist with urology consultation is completely reasonable. Patient is having pain due to the catheterization so I will give her some morphine for that. Lab Data Attestation: I reviewed the patient's lab results. Labs: Laboratory Results - last 24 hr 08/26/23 08/26/23 19:10 20:40 WBC 5.1 RBC 4.05 L Hgb 12.4 Hct 38.2 MCV 94.3 MCH 30.6 MCHC 32.5 RDW Std Deviation 46.1 H RDW Coeff of Tomi 13.6 Plt Count 222 MPV 9.9 Immature Gran % (Auto) 0.400 Neut % (Auto) 66.1 Lymph % (Auto) 25.5 [place] % (Auto) 6.6 Eos % (Auto) 1.2 Baso % (Auto) 0.2 Absolute Neuts (auto) 3.4 Absolute Lymphs (auto) 1.31 Nucleated RBC % 0 Sodium 141 Potassium 3.1 L Chloride 111 H Carbon Dioxide 23.0 Anion Gap 7 BUN 20 H Creatinine 0.86 Estim Creat Clear Calc 84.14 Est GFR (MDRD) Af Amer 88 Est GFR (MDRD) Non-Af 73 BUN/Creatinine Ratio 23.2 H Glucose 179 H Calcium 9.4 Urine Color Red Urine Clarity Turbid Urine pH 7.0 Ur Specific [place] 1.010 Urine Protein 500 H Urine Glucose (UA) 250 H Urine Ketones Negative Urine Occult Blood 150 H Urine Nitrite Negative Urine Bilirubin Negative Urine Urobilinogen Normal Ur Leukocyte Esterase Negative Urine RBC > 100 SEEN Urine WBC 0 SEEN Ur Squamous Epith Cells 0 SEEN Urine Bacteria 2+ Urine Mucus 0 SEEN Radiography Diagnostic Testing: Clinical Impression(s) from Imaging Studies Abdomen/Pelvis CT 08/26/23 19:46 IMPRESSION: * There is diffuse bladder wall thickening and pericecal fat stranding which may represent cystitis, with indwelling Gaspar catheter. There may be asymmetric thickening of the right posterolateral bladder wall. Consider cystoscopy for further evaluation and to exclude underlying malignancy. * Nonobstructive calculi in the lower pole of the right kidney are unchanged. * Unchanged nonobstructive calculi, lower pole right kidney. * Cholecystectomy, appendectomy and hysterectomy. Electronically Signed: Dean Lovell MD at 21:47 EDT Reading Location ID and State: [facility] / [place] Tel , Service support , Management Discussion w/another healthcare provider: Hospitalist and Director Alumni Relations (urology malini) Discharge Plan Dx/Rx/DC Orders Clinical Impression: Anticoagulated, Hematuria, Acute urinary retention Disposition Disposition: Acute Care Hospital [facility] What to do if you have Problems For any increased pain, shortness of breath, bleeding, nausea or vomiting, chestpain, or any unexpected problems, contact your Primary Care Provider. Call [facility] ([phone]) or report to the closest Emergency Room. Call 911 if necessary. 08/26/232240 <Electronically signed by Rell Loera MD> Cosigner Signature (if applicable): CC: Dr. Margo Tatum DO ~ Signed [facility] Work Phone: 1(298) 429-512103-22-2024 Discharge summary Author Rell Loera [facility] August 26, 2023 10:41pm Note Date/Time August 26, 2023 7:5 2pm [facility] Medical Records Department [address] [place] [address] Emergency Department Summary 08/26/23 MR#: [id number] Acct: [id number] Name: PITO HENDRIX Rep #:[id number] : 1970 52 From: Rell Loera MD PCP: Dr. Margo Tatum DO Status:REG ER Location: ED HPI HPI - Female History of Present Illness Chief Complaint: Complaint Informant: patient Narrative Narrative: Patient with hematuria all day today. She states she is urinating clots. She has had symptoms of urinary retention, at times she is able to push hard and urinate out some of the clots. She denies any dysuria or frequency or symptoms prior to that to the hematuria. She states she has had bladder infections in the past, she usually knows when they are coming on and she has had none of thatthis time. She has never had this before. It is gross hematuria with clots. She is on apixaban for history of atrial fibrillation. [facility] Medical History Atherosclerotic heart disease of [place] coronary artery without angina pectoris Atrial fibrillation Benign hypertension Bilateral interstitial pneumonia Cardiomyopathy, ischemic Chest pain Chronic low back pain Chronic nausea Chronic pain COPD (chronic obstructive pulmonary disease) Coronary artery disease COVID-19 virus infection Diabetes Difficult intubation Former smoker HFrEF (heart failure with reduced ejection fraction) Hirsutism History of non-ST elevation myocardial infarction (NSTEMI) (09/08/21) Hyperglycemia due to type 2 diabetes mellitus Hyperlipidemia Hypertension Irregular heart beat Kidney stones Left bundle branch block (LBBB) Myocardial infarct Non-ischemic cardiomyopathy Non-ST elevation (NSTEMI) myocardial infarction Nonobstructive atherosclerosis of coronary artery Obesity Paroxysmal atrial fibrillation Presence of cardiac 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 therapy defibrillator (CRTT-D) Seizures Syncope Thyroid nodule Type 2 diabetes mellitus Vomiting Home Medications hydroxyzine HCl 25 mg tablet 25 - 50 mg PO QHS PRN anxiety 02/24/22 [History Last Taken Unknown] melatonin 10 mg tablet 10 mg PO HS PRN Insomnia 02/24/22 [History Last Taken Unknown] BD Ultra-Fine [place] Pen Needle 32 gauge x 5/32 (pen needle, diabetic) #100 ea 07/29/22 [Rx Last Taken Unknown] diphenhydramine HCl 25 mg tablet 25 mg PO Q4H PRN PRN Allergy Symptoms 08/06/22 [History Last Taken Unknown] hydrocodone-acetaminophen 5-325mg 5mg-325mg 1 tab PO DAILY Check with primary doctor 08/06/22 [History Last Taken 08/06/22 10:00] naloxegol 25 mg tablet (Movantik) 25 mg PO QAM Check with primary doctor 08/06/22 [History Last Taken Unknown] omeprazole magnesium 20 mg tablet,delayed release (Prilosec OTC) 20 mg PO DAILY Check with primary doctor 08/06/22 [History Last Taken Unknown] promethazine 25 mg tablet 25 mg PO TID PRN PRN Nausea And Vomiting 08/06/22 [History Last Taken Unknown] tizanidine 4 mg tablet 4 mg PO QHS 08/06/22 [History Last Taken 08/05/22] dapagliflozin propanediol 10 mg tablet (Farxiga) 10 mg PO DAILY 10/20/22 [History Last Taken Unknown] ibuprofen 200 mg tablet 200 mg PO Q6H PRN fever or pain 10/20/22 [History Last Taken Unknown] insulin glargine 100 unit/mL (3 mL) subcutaneous pen (Lantus Solostar U-100 Insulin) 23 unit subcut DAILY Check with primary doctor 10/20/22 [History Last Taken Unknown] insulin lispro 100 unit/mL subcutaneous pen (Humalog KwikPen (U-100) Insulin) 12unit subcut TIDCM Check with primary doctor 10/20/22 [History Last Taken Unknown] sacubitril 97 mg-valsartan 103 mg tablet (Entresto) 1 tab PO BID 10/20/22 [History Last Taken Unknown] flash glucose sensor (FreeStyle Sanam 2 Sensor kit) #2 ea 03/02/23 [Rx Last Taken Unknown] cholecalciferol (vitamin D3) 50 mcg (2,000 unit) capsule 1,000 unit PO DAILY 03/08/23 [History Last Taken Unknown] spironolactone 50 mg tablet 50 mg PO DAILY #90 tabs 03/08/23 [Rx Last Taken Unknown] carvedilol 25 mg tablet 25 mg PO BID Check with primary doctor #180 tabs 03/10/23 [Rx Last Taken Unknown] glipizide 10 mg tablet, extended release 24 hr 10 mg PO BID diabetes #180 tabs 03/14/23 [Rx Last Taken Unknown] methimazole 10 mg tablet 10 mg PO DAILY #90 tabs 03/14/23 [Rx Last Taken Unknown] clopidogrel 75 mg tablet (Plavix) 75 mg PO DAILY #90 tabs 05/16/23 [Rx Last Taken Unknown] apixaban 5 mg tablet (Eliquis) See Rx Instructions .Route .COMPLEX #180 tabs 05/31/23 [Rx Last Taken Unknown] atorvastatin 80 mg tablet See Rx Instructions .Route .COMPLEX #360 TABLETS 06/09/23 [Rx Last Taken Unknown] isosorbide mononitrate 30 mg tablet,extended release 24 hr See Rx Instructions .Route .COMPLEX #360 TABLETS 06/09/23 [Rx Last Taken Unknown] furosemide 40 mg tablet See Rx Instructions .Route .COMPLEX #90 TABLETS 07/04/23[Rx Last Taken Unknown] dulaglutide 1.5 mg/0.5 mL subcutaneous pen injector (Trulicity) 1.5 mg (0.5 mL) subcut QWEEK #2 mL 08/11/23 [Rx Last Taken Unknown] flash glucose scanning reader (FreeStyle Sanam 2 [place]) #1 ea 08/11/23 [Rx Last Taken Unknown] Allergy/AdvReac Type Severity Reaction Status Date / Time amoxicillin trihydrate AdvReac Vomiting Verified 08/26/23 18:21 [From Augmentin] potassium clavulanate AdvReac Vomiting Verified 08/26/23 18:21 [From Augmentin] Family History Father Myocardial infarction Cancer prostate, leukemia Agent orange exposure Diabetes Sister Diabetes COPD (chronic obstructive pulmonary disease) Surgical History History of appendectomy History of back surgery History of cholecystectomy (1991) History of cholecystectomy History of coronary artery stent placement (05/19/21) History of hysterectomy History of laparoscopy History of left heart catheterization (09/14/21) History of tonsillectomy Status post insertion of nerve stimulator Social History household members: significant other Smoking Status: Former smoker how long ago did patient quit smokin alcohol intake: current alcohol intake frequency: holidays/special occasions only substance use type: does not use caffeine: Yes ROS ROS ED Constitutional Constitutional ED: Denies chills or fever(s) Eyes Eyes: Denies change in vision or diplopia ENT ENT ED: Denies rhinorrhea or sore throat Cardiovascular Cardiovascular: Denies chest pain or palpitations Respiratory/Chest Respiratory/Chest: Denies cough or dyspnea Gastrointestinal Gastrointestinal: Reports abdominal pain; Denies diarrhea, nausea or vomiting Genitourinary Genitourinary ED: Reports as per HPI, difficulty urinating, hematuria and urinary frequency; Denies dysuria Musculoskeletal Musculoskeletal: Denies back pain or neck pain Integumentary Denies abscess or rash Neurologic Neurologic: Denies headache(s), paresthesias or weakness Psychiatric Psychiatric: Denies anxiety or suicidal thoughts EXAM Physical Exam Const Vital Signs: 08/26/23 18:21 08/26/23 21:09 Temperature 97.1 F L Temperature Source Temporal Pulse Rate 110 H 106 H Respiratory Rate 22 H 16 Blood Pressure 141/83 H 140/60 H Blood Pressure Mean 102 86 Pulse Ox 100 Oxygen Delivery Method Room Air Positive well nourished and well developed General Appearance ED: well developed and NAD HEENT Reports moist mucous membranes normocephalic and atraumatic Eyes PERRL and EOMs intact bilaterally Neck full ROM and supple Resp normal respiratory effort and clear to auscultation bilaterally Cardio regular rate, regular rhythm and no murmurs GI non-tender and non-distended Auscultation: normoactive bowel sounds Palpation: soft Back/Spine no CVA tenderness General Back: other FROM Extremity normal to inspection General Extremety ED: Negative for edema, pulses abnormal or tenderness General Extremity: Negative for edema or pulses abnormal Neuro oriented x3, CN's II-XII intact bilaterally and no sensory deficits noted Sensorium / Orientation: awake and alert Motor Exam: strength 5/5 throughout Skin no rashes or lesions noted and no wounds MDM MDM MDM Narrative Medical decision making narrative: We catheterized the patient and were able to get out gross hematuria, continuousbladder irrigation was performed and after a bag was finished she continues to bleed, as the urine output turned bright red blood again. Her blood count looksstable, her last hemoglobin was about 13 now it is 12.4, renal function is normal, and the urine does not appear to be infected. Therefore sent her for CTof the abdomen/pelvis, with IV contrast. I reviewed the images and report whichI agree with, it shows asymmetric posterior bladder wall thickening, they recommend correlation with cystoscopy. I discussed with urology Dr. Campoverde, whoagrees that continuing CBI and admitting to hospitalist with urology consultation is completely reasonable. Patient is having pain due to the catheterization so I will give her some morphine for that. Lab Data Attestation: I reviewed the patient's lab results. Labs: Laboratory Results - last 24 hr 08/26/23 08/26/23 19:10 20:40 WBC 5.1 RBC 4.05 L Hgb 12.4 Hct 38.2 MCV 94.3 MCH 30.6 MCHC 32.5 RDW Std Deviation 46.1 H RDW Coeff of Tomi 13.6 Plt Count 222 MPV 9.9 Immature Gran % (Auto) 0.400 Neut % (Auto) 66.1 Lymph % (Auto) 25.5 [place] % (Auto) 6.6 Eos % (Auto) 1.2 Baso % (Auto) 0.2 Absolute Neuts (auto) 3.4 Absolute Lymphs (auto) 1.31 Nucleated RBC % 0 Sodium 141 Potassium 3.1 L Chloride 111 H Carbon Dioxide 23.0 Anion Gap 7 BUN 20 H Creatinine 0.86 Estim Creat Clear Calc 84.14 Est GFR (MDRD) Af Amer 88 Est GFR (MDRD) Non-Af 73 BUN/Creatinine Ratio 23.2 H Glucose 179 H Calcium 9.4 Urine Color Red Urine Clarity Turbid Urine pH 7.0 Ur Specific [place] 1.010 Urine Protein 500 H Urine Glucose (UA) 250 H Urine Ketones Negative Urine Occult Blood 150 H Urine Nitrite Negative Urine Bilirubin Negative Urine Urobilinogen Normal Ur Leukocyte Esterase Negative Urine RBC > 100 SEEN Urine WBC 0 SEEN Ur Squamous Epith Cells 0 SEEN Urine Bacteria 2+ Urine Mucus 0 SEEN Radiography Diagnostic Testing: Clinical Impression(s) from Imaging Studies Abdomen/Pelvis CT 08/26/23 19:46 IMPRESSION: * There is diffuse bladder wall thickening and pericecal fat stranding which may represent cystitis, with indwelling Gaspar catheter. There may be asymmetric thickening of the right posterolateral bladder wall. Consider cystoscopy for further evaluation and to exclude underlying malignancy. * Nonobstructive calculi in the lower pole of the right kidney are unchanged. * Unchanged nonobstructive calculi, lower pole right kidney. * Cholecystectomy, appendectomy and hysterectomy. Electronically Signed: Dean Lovell MD at 21:47 EDT , Management Discussion w/another healthcare provider: Hospitalist and Director Alumni Relations (urology malini) Discharge Plan Dx/Rx/DC Orders Clinical Impression: Anticoagulated, Hematuria, Acute urinary retention Disposition Disposition: Acute Care Hospital [facility] What to do if you have Problems For any increased pain, shortness of breath, bleeding, nausea or vomiting, chestpain, or any unexpected problems, contact your Primary Care Provider. Call [facility] ([phone]) or report to the closest Emergency Room. Call 911 if necessary. 08/26/231 <Electronically signed by Rell Loera MD> Cosigner Signature (if applicable): CC: Dr. Margo Tatum DO ~ Signed [facility] Work Phone: [phone]) 979-940504-17-2023 Hospital Discharge instructions* Discharge Instructions* Iza Paulson DO - 09/20/2022 8:52 PM EDT You were seen and evaluated here in the [facility] Emergency Department with concerns for ongoing left armpain after the placement of year implantable defibrillator. Your CT imaging was negative for infection. As discussed you should alternate Tylenol and Motrin every 4 hours for your baseline pain relief, you were prescribed both gabapentin and Medrol, please using instructed. Please follow-up the bait painter after discharge. If your symptoms fail to improve or worsen despite treatment, please follow-up promptly with your PCP or if unable to do so you may return to the emergency department. documented in [facility] Physician Emergency department Note* Rupali Shaw MD, PhD - 09/20/2022 3:44 PM EDT ED Attending Chief Complaint Patient presents with Post-Op Problem Chills Past Medical History: Diagnosis Date Diabetes HLD (hyperlipidemia) HTN (hypertension) TB lung, latent 2005 s/p treatment Pito Hendrix is a 51 y.o. female. Recurrent redness and swelling around incision. Had post op ICD placement infection was on oral antibiotics. She is more concerned about L arm swelling. Associated radiating pain down her arm. BP 153/90 Pulse 74 Temp 97.6 F (36.4 C) (Oral) Resp 18 Ht 1.638 m (5' 4.5) SpO2 95% BMI 37.99 kg/m Smoking Status Never Incision site for ICD battery appears well with no erthymea, mobile nontender no fluctuance Rupali Shaw MD, PhD Medical Decision Making Patient was [...] discharge planning for help on timing. We couldtrial a dose of gabapentin. We recommend she [...] patient with the resident. I provided a substantiveportion of the care for this patient. I [...] the documented procedures for the patient. . Rupali Shaw MD, PhD 09/21/22 0147 [facility] Work Phone: [phone]) 472-638004-17-2023 Emergency department Note* Rupali Shaw MD, PhD - 09/20/2022 3:44 PM EDT ED Attending Chief Complaint Patient presents with [...] (Oral) Resp 18 Ht 1.638 m (5' 4.5) SpO2 95% BMI 37.99 kg/m Smoking Status Never Incision site for ICD battery appears well with no erthymea, mobile nontender no fluctuance Rupali Shaw MD, PhD Medical Decision Making Patient was [...] discharge planning for help on timing. We couldtrial a dose of gabapentin. We recommend she [...] patient with the resident. I provided a substantiveportion of the care for this patient. I [...] the documented procedures for the patient. . Rupali Shaw MD, PhD 09/21/22 0147 * Arina Brannon RN - 09/20/2022 3:00 PM EDT PT had ICD/defib placed 2 weeks ago [...] ER for further evaluation. documented in this encounter[facility] Emergency department Note* Arina Brannon RN - 09/20/2022 3:00 PM EDT PT had ICD/defib placed 2 weeks ago [...] patient sent to ER for further evaluation. [facility] Note* Nursing Notes - Reena Hahn RN - 08/18/2022 5:47 PM EDT After Visit Summary reviewed with patient by [...] at time of discharge. Reena Hahn RN [facility]03-15-[facility]23 Miscellaneous Notes* Nursing Notes - Reena Hahn RN - 08/18/2022 5:47 PM EDT After Visit Summary reviewed with patient by [...] at time of discharge. Reena Hahn RN * Nursing Notes - Nicolasa Mullen RN - 08/18/2022 8:56 AM EDT 0830am Report of PIV WITH ULTRASOUND GUIDANCE [...] 1: Location: forearm, anterior, left Device/Lot Number: [id number] catheter system Gauge/Length: 20 gauge;1 1/4 in length Unsuccessful Insertion Attempts: Unsuccessful Attempt Location/Site: Pain Prevention/Patient Tolerance: Removal: Additional Comments: Lumen 2: Lumen 3: Peripheral IV Present on Admission: (Retired/Read Only) Location: (Retired/Read Only) Device: (Retired/Read Only) Gauge/Length: Straightening Press Operator/Lot Number: Unsuccessful Insertion Attempts: (Retired/Read Only) Unsuccessful Attempt Locations: Pain Prevention: Patient Tolerance: Insertion: Removal Indication: Peripheral IV Location - Orientation: Peripheral IV Location: Insertion Site WDL WDL 08/18/22 08 Site Preparation/Maintenance site cleansed: chlorhexidine solution 08/18/22854 Lumen 1 Patency/Maintenance flushed without difficulty;blood return, able to obtain 08/18/22 08 Phlebitis 0-->no symptoms 03/15/23 0855 Infiltration 0-->no symptoms 08/18/22 0855 Patient tolerated procedure well without any complications [] Lidocaine 1% used prior insertion [] No Lidocaine used Extra insertion note if applicable: RN notified of procedure completion [ x] Obtained labs. [X] Call light in reach. [X] Bed low and locked. [X] Tray table within reach. Education: Patient/Family informed to notify nurse of any complications including pain, redness, swelling, or leakage post insertion. * Nursing Notes - Reena Hahn RN - 08/18/2022 8:32 AM EDT Pt arrives to room 2406 in IPR for BIV/ICD. IV started in left arm. Labs drawn and sent. 0.9 NS IVFinitiated @ [facility]. Pt prep completed. Valuables given to Ranjit. Clothes secured in room. Questions about procedure answered. Family brought to bedside. Bed in low position, side rail up x2 and call light given to pt. Tele monitor shows NSR. Reena Hahn RN documented in this encounter[facility]23 Hospital Discharge instructions* Discharge Instructions* Sabiha Jane, WOOD CARVER HAND-COMPUTER TECHNICIAN - 08/18/2022 9:58 AM EDT WHAT TO [...] is back to normal, you do not feelshort of breath or lightheaded, and have no chest discomfort, you do not need to call 911. Sit downand call the Device Clinic that day or the next business day. If you get more than one shock from your ICD in a day or you feel short of breath or lightheaded orhave chest discomfort, call 911 right away. If you pass out, have someone call 911 and start CPR. CPR should continue until the rescue squad arrives. If the ICD fires while someone is giving you CPR, they may feel a slight shock. This is not harmful to them. [facility] ([phone]) * Discharge Instr - Activity* FIDELIA Willis - 08/18/2022 9:57 AM EDT [...] physician s office, not the Device Clinic * Discharge Instr - Diet* FIDELIA Willis - 08/18/2022 9:58 AM EDT Diet: Your [...] help manage and maintain consistent blood glucose levels.Simple sugars are limited and carbohydrate intake is balanced throughout the day. Avoid adding saltto your food and use heart healthy fats such as canola or olive oil. * Discharge Instr - Notify* FIDELIA Willis - 08/18/2022 9:58 AM EDT Images from the original note were not included. Call the Device Clinic if you have: A shock from the ICD. If you have more than one shock in 24 hours, call 911 Dizziness, lightheadedness, or you pass out A very fast heartbeat or a heartbeat greater than 125 beats per minute for longer than 5 minutes atrest. Unusual shortness of breath Other signs that concern you If you have any of these signs and need medical help right away, call 911. When you are nauseated, you may feel weak and sweaty and notice a lot of saliva in your mouth. Nausea often leads to vomiting. Most of the time you do not need to worry about nausea and vomiting, butthey can be signs of other illnesses. The doctor has checked you carefully, but problems can develop later. If you notice any problems ornew symptoms, get medical treatment right away. Follow-up care is a wu part of your treatment and safety. Be sure to make and go to all appointments, and call your doctor if you are having problems. It's also a good idea to know your test resultsand keep a list of the medicines you [...] Where can you learn more? Go to [email or web address].net/osumychart. * Discharge Instr - Wound Care* FIDELIA Willis - 08/18/2022 9:58 AM EDT [...] skin during body movement. [facility]* Nursing Notes - Nicolasa Mullen RN - 08/18/2022 8:56 AM EDT 0830am Report of PIV WITH ULTRASOUND GUIDANCE [...] 1: Location: forearm, anterior, left Device/Lot Number: [id number] catheter system Gauge/Length: 20 gauge;1 1/4 in length Unsuccessful Insertion Attempts: Unsuccessful Attempt Location/Site: Pain Prevention/Patient Tolerance: Removal: Additional Comments: Lumen 2: Lumen 3: Peripheral IV Present on Admission: (Retired/Read Only) Location: (Retired/Read Only) Device: (Retired/Read Only) Gauge/Length: Straightening Press Operator/Lot Number: Unsuccessful Insertion Attempts: (Retired/Read Only) Unsuccessful [...] pain, redness, swelling, or leakage post insertion. [facility] Note* Nursing Notes - Reena Hahn RN - 08/18/2022 8:32 AM EDT Pt arrives to room 2406 in [facility] for BIV/ICD. IV started in left arm. Labs drawn and sent. 0.9 NS IVFinitiated @ [facility]. Pt prep completed. Valuables given to Ranjit. Clothes secured in room. Questions about procedure answered. Family brought to bedside. Bed in low position, side rail up x2 and call light given to pt. Tele monitor shows NSR. Reena Hahn RN [facility]03-[facility] History and physical note* Sabiha Jane APRN-LIZ - 08/18/2022 8:14 AM EDT Images from the original note were not included. Chief Complaint Ischemic cardiomyopathy HPI Pito Hendrix is a 51 y.o. female with ischemic CM, CAD s/p IA and PCI, HFrEF (30%), DM, HTN, LBBB,COPD and MR. She had an anterior wall IA with LAD stents (05/2021). Her LVEF remains depressed 30% despite GDMT. Endorses NYHA class III symptoms of fatigue, SOB, PND and needs to take frequent breaks with ADLs and 3 pillow orthopnea. Review of EKG noted LBBB (QRS 160ms). She was referred to Dr. Padron who recommended CRTT-D implant for primary prevention which she presents for today. She reports a few ago noted rapid irregular HR described as pounding out of her chest. She presented to [facility] and underwent stress testing and observation. [...] N/A; Surgeon: Becky Rodriguez MD, PhD;; Location: [facility] MAIN OR APPENDECTOMY CHOLECYSTECTOMY EXPLORATORY LAPAROTOMY LAMINECTOMY [...] every 8 hours as needed for Nausea /Vomiting - duplicate. 15 mL 0 More than [...] - Other Father Referring MD: Bryan Ruano, COMPUTER TECHNICIAN PCP Margo SAENZ MD: Serafin Padron Anticoagulation: Eliquis Has the patient missed any doses of anticoagulation: 2.5 days When was the last dose taken: 08/15/22 evening dose Previous antiarrythmic medications: None Shared decision tool for primary prevention ICD NYHA Class III Patient on guideline directed therapy for greater than 3 months? yes Pito Hendrix has been evaluated and determined to meet [facility] primary prevention ICD implant criteriadue to: Ischemic dilated cardiomyopathy with LVEF less than or equal to 35% with NYHA class II or III heart failure and post IA greater than 40 days and post PCI [...] (Oral) Resp 16 Ht 1.626 m (5' 4) Wt 99.3 kg (219 lb) SpO2 97% [...] III in setting of LBBB- proceed with CRTT-D for primary prevention. (labs pending) Associated attestation - Serafin Padron MD - 08/18/2022 4:10 PM EDT Discussed procedure with pt and re-addressed risk/benefits. Pt is ready to proceed. Consent signed A and O x 3 Skin W and Dry [facility] History and physical note* Sabiha Jane, WOOD CARVER HAND-COMPUTER TECHNICIAN - 08/18/2022 8:14 AM EDT Images from the original note were not included. Chief Complaint Ischemic cardiomyopathy MARIO Hendrix is a 51 y.o. female with ischemic CM, CAD s/p IA and PCI, HFrEF (30%), DM, HTN, LBBB,COPD and MR. She had an anterior wall IA with LAD stents (05/2021). Her LVEF remains depressed 30% despite GDMT. Endorses NYHA class III symptoms of fatigue, SOB, PND and needs to take frequent breaks with ADLs and 3 pillow orthopnea. Review of EKG noted LBBB (QRS 160ms). She was referred to Dr. Padron who recommended CRTT-D implant for primary prevention which she presents for today. She reports a few ago noted rapid irregular HR described as pounding out of her chest. She presented to [facility] and underwent stress testing and observation. [...] N/A; Surgeon: Becky Rodriguez MD, PhD;; Location: [facility] MAIN OR APPENDECTOMY CHOLECYSTECTOMY EXPLORATORY LAPAROTOMY LAMINECTOMY [...] every 8 hours as needed for Nausea /Vomiting - duplicate. 15 mL 0 More than [...] - Other Father Referring MD: Bryan Ruano, COMPUTER TECHNICIAN PCP Margo SAENZ MD: Serafin Padron Anticoagulation: Eliquis Has the patient missed any doses of anticoagulation: 2.5 days When was the last dose taken: 08/15/22 evening dose Previous antiarrythmic medications: None Shared decision tool for primary prevention ICD NYHA Class III Patient on guideline directed therapy for greater than 3 months? yes Pito Hendrix has been evaluated and determined to meet [facility] primary prevention ICD implant criteriadue to: Ischemic dilated cardiomyopathy with LVEF less than or equal to 35% with NYHA class II or III heart failure and post IA greater than 40 days and post PCI [...] (Oral) Resp 16 Ht 1.626 m (5' 4) Wt 99.3 kg (219 lb) SpO2 97% [...] III in setting of LBBB- proceed with CRTT-D for primary prevention. (labs pending) Associated attestation - Serafin Padron MD - 08/18/2022 4:10 PM EDT Discussed procedure with pt and re-addressed risk/benefits. Pt is ready to proceed. Consent signed A and O x 3 Skin W and Dry Proceed with planned procedure [facility] History and physical note Author Dr. Nguyen [facility] August 07, 2022 5:29am Note Date/Time August 06, 2022 9:56 pm [facility] Medical Records Department [address] [place] [address] H&P Exam - Hospitalist 08/06/222154 MR#: [id number] Acct: [id number] Name: PITO HENDRIX Rep #:[id number] : 1970 51 From: Patel Nguyen MD PCP: Dr. Margo Tatum, DO Status:ADM HERMINIA Location: [place] [id number]- [id number] HPI - General General Date of Admission: 08/06/22 Date of Service: 08/06/22 Chief Complaint: Chest pain HPI Narrative PITO HENDRIX, is a 51 F with a significant history of heart failure with reduced ejection fraction; and CAD status post stents who presents to the emergency department with excruciating substernal chest pain that started about about 1 hour and 20 minutes before presentation. She describes her chest pain as sharp and a feeling of someone sitting on her chest. She also describe a twisting sensation in her chest. The chest pain radiates to bilateral shoulders and in between her shoulder blades. She denies any ameliorating factors to the pain. Taking a deep breath worsens the pain. Associated with her symptoms is nausea with dry heaving. She denies diaphoresis. She has a productive cough that has not changed since May 2022. Of note patient had stents placed in the coronary in 2020. Also reportedly in 2021 she had NSTEMI. Her echocardiogram in April 2022 showed ejection fraction of 30%. Of note patient is scheduled to have a pacemaker with defibrillator place at [facility] on 18 August 2022. [facility] Medical History Atherosclerotic heart disease of [place] coronary artery without angina pectoris Atrial fibrillation Benign hypertension Bilateral interstitial pneumonia Cardiomyopathy, ischemic Chronic low back pain Chronic nausea Chronic pain COPD (chronic obstructive pulmonary disease) Coronary artery disease COVID-19 virus infection Diabetes Difficult intubation Former smoker HFrEF (heart failure with reduced ejection fraction) Hirsutism History of non-ST elevation myocardial infarction (NSTEMI) (09/08/21) Hyperglycemia due to type 2 diabetes mellitus Hyperlipidemia Hypertension Irregular heart beat Kidney stones Left bundle branch block (LBBB) Myocardial infarct Non-ischemic cardiomyopathy Non-ST elevation (NSTEMI) myocardial infarction Nonobstructive atherosclerosis of coronary artery Obesity Paroxysmal atrial fibrillation Seizures Syncope Thyroid nodule Type 2 diabetes mellitus Vomiting Home Medications glipizide 10 mg tablet, extended release 24 hr 10 mg PO BID diabetes 07/11/20 [History Last Taken 08/06/22] dapagliflozin 10 mg tablet (Farxiga) 10 mg PO DAILY this is a dose increase #90 tabs 10/29/21 [Rx Last Taken 08/06/22 10:00] insulin glargine 100 unit/mL (3 mL) subcutaneous pen (Lantus Solostar U-100 Insulin) 10 unit subcut DAILY Check with primary doctor 11/09/21 [History Last Taken 08/06/22 10:00] apixaban 5 mg tablet (Eliquis) 5 mg PO BID #60 tabs 01/27/22 [Rx Last Taken 08/06/22 10:00] hydroxyzine HCl 25 mg tablet 25 - 50 mg PO QHS PRN anxiety 02/24/22 [History Last Taken Unknown] melatonin 10 mg tablet 10 mg PO HS PRN Insomnia 02/24/22 [History Last Taken Unknown] clopidogrel 75 mg tablet (Plavix) 75 mg PO DAILY #90 tabs 04/13/22 [Rx Last Taken 08/06/22] flash glucose scanning reader (MoneyMailStyle Sanam 2 [place]) #1 ea 06/09/22 [Rx Last Taken Unknown] flash glucose sensor (FreeStyle Sanam 2 Sensor kit) #2 ea 06/09/22 [Rx Last Taken Unknown] BD Ultra-Fine [place] Pen Needle 32 gauge x 5/32 (pen needle, diabetic) #100 ea 07/29/22 [Rx Last Taken Unknown] atorvastatin 80 mg tablet 80 mg PO QHS Check with primary doctor 08/06/22 [History Last Taken 08/05/22] carvedilol 25 mg tablet 25 mg PO BID Check with primary doctor 08/06/22 [History Last Taken 08/06/22 10:00] diphenhydramine HCl 25 mg tablet 25 mg PO Q4H PRN PRN Allergy Symptoms 08/06/22 [History Last Taken Unknown] furosemide 40 mg tablet 40 mg PO DAILY Check with primary doctor 08/06/22 [History Last Taken 08/06/22] hydrocodone-acetaminophen 5-325mg 5mg-325mg 1 tab PO DAILY Check with primary doctor 08/06/22 [History Last Taken 08/06/22 10:00] insulin lispro 100 unit/mL subcutaneous pen (Humalog KwikPen (U-100) Insulin) 10unit subcut TIDCM Check with primary doctor 08/06/22 [History Last Taken 08/06/22 10:00] isosorbide mononitrate 30 mg tablet,extended release 24 hr 30 mg PO DAILY Check with primary doctor 08/06/22 [History Last Taken Unknown] methimazole 10 mg tablet 10 mg PO DAILY Check with primary doctor 08/06/22 [History Last Taken 08/06/22 10:00] naloxegol 25 mg tablet (Movantik) 25 mg PO QAM Check with primary doctor 08/06/22 [History Last Taken Unknown] omeprazole magnesium 20 mg tablet,delayed release (Prilosec OTC) 20 mg PO DAILY Check with primary doctor 08/06/22 [History Last Taken Unknown] promethazine 25 mg tablet 25 mg PO TID PRN PRN Nausea And Vomiting 08/06/22 [History Last Taken Unknown] sacubitril 49 mg-valsartan 51 mg tablet (Entresto) 1 tab PO BID Check with primary doctor 08/06/22 [History Last Taken 08/06/22 10:00] tizanidine 4 mg tablet 4 mg PO QHS 08/06/22 [History Last Taken 08/05/22] Allergy/AdvReac Type Severity Reaction Status Date / Time amoxicillin trihydrate AdvReac Vomiting Verified 06/30/22 10:59 [From Augmentin] potassium clavulanate AdvReac Vomiting Verified 06/30/22 10:59 [From Augmentin] Family History Father Myocardial infarction Cancer prostate, leukemia Agent orange exposure Diabetes Sister Diabetes COPD (chronic obstructive pulmonary disease) Surgical History History of appendectomy History of back surgery History of cholecystectomy (1991) History of cholecystectomy History of coronary artery stent placement (05/19/21) History of hysterectomy History of laparoscopy History of left heart catheterization (09/14/21) History of tonsillectomy Status post insertion of nerve stimulator Social History household members: significant other Smoking Status: Former smoker how long ago did patient quit smokin alcohol intake: current alcohol intake frequency: holidays/special occasions only substance use type: does not use caffeine: Yes ROS ROS Narrative Pertinent positives and pertinent negatives as noted in HPI. All other systems were reviewed and are negative Vital Signs Vital Signs Vital Signs: 08/06/22 17:51 08/06/22 18:03 08/06/22 20:07 Temperature 96.7 F L Temperature Source Temporal Pulse Rate 76 80 77 Respiratory Rate 16 14 14 Blood Pressure 146/75 H 146/75 H 162/94 H Blood Pressure Mean 98 98 116 Pulse Ox 100 98 99 Oxygen Delivery Method Room Air Room Air Room Air 08/06/22 21:35 Temperature Temperature Source Pulse Rate 84 Respiratory Rate 17 Blood Pressure 154/81 H Blood Pressure Mean 105 Pulse Ox 97 Oxygen Delivery Method Room Air Physical Exam Narrative Physical exam: General: Appears in distress. Head: Normocephalic, atraumatic, no tenderness Eyes: Vision is grossly intact. EOMI ENT, no trauma, moist mucous membranes, no rhinorrhea Neck: Nontender, No thyromegaly. CVS: Regular rate and rhythm. S1-S2 present. No murmur, gallop or rub. Respiratory : clear to auscultation bilaterally, chest wall nontender, no wheezing Abdomen: Soft, nontender, nondistended, normal bowel sounds, no masses : Deferred Back: Nontender, no CVA tenderness, no midline spinal tenderness, deformities, step-offs Extremities: Nontender full range of motion, no trauma Skin: Normal color, no trauma, abrasions Neuro: Alert, oriented, cranial nerves II through XII grossly intact. Psychiatry: Appears anxious Results Lab / Micro Data Result Diagrams: 08/06/22 18:00 08/06/22 18:00 Labs: Laboratory Results - last 24 hr 08/06/22 18:00: WBC 6.4, RBC 4.26, Hgb 13.6, Hct 41.2, MCV 96.7, MCH 31.9, MCHC 33.0, RDW Std Deviation 47.3 H, RDW Coeff of Tomi 13.4, Plt Count 198, MPV 10.2, Immature Gran % (Auto) 0.300, Neut % (Auto) 55.6, Lymph % (Auto) 35.2, [place] % (Auto) 6.6, Eos % (Auto) 2.0, Baso % (Auto) 0.3, Absolute Neuts (auto) 3.5, Absolute Lymphs (auto) 2.24, Nucleated RBC % 0 08/06/22 18:00: Sodium 138, Potassium 4.0, Chloride 109 H, Carbon Dioxide 20.0 L, Anion Gap 9, BUN 26 H, Creatinine 0.90, Est GFR (MDRD) Af Amer 85, Est GFR (MDRD) Non-Af 70, BUN/Creatinine Ratio 28.9 H, Glucose 244 H, Calcium 9.2, Troponin I High Sens 7 08/06/22 20:26: Troponin I High Sens 7 Radiology Impression Chest X-Ray 08/06/22 18:39 IMPRESSION: No radiographic evidence of acute cardiopulmonary disease. Electronically Signed: Gustavo Dejesus MD at 19:12 EST , Assessment & Plan Assessment/Plan (1) Chest pain: (2) Shortness of breath: PLAN: Plan Chest pain Place on a monitored bed at [facility] Actual CXR image was independently visualized. No acute cardiopulmonary processwas noted. Actual EKG tracing was independently visualized. EKG tracing showed sinus rhythmwith no ST or T wave abnormalities On home Plavix and Eliquis. Patient initially hesitant to take full dose aspirin at the emergency department. With acute symptoms advised to take full dose aspirin. ASA 81 mg p.o. daily ordered We will check lipid panel. High intensity statin continued. High sensitivity troponin negative, trend. Patient does not think that she cannot walk on a treadmill. Chemical test in the AM if the cardiac enzymes are negative and if chest pain is stable. Carvedilol continued. Imdur continued. Last echocardiogram was April 2022. Limited echocardiogram to check EF done. Heart failure with reduced ejection fraction Chronic Echocardiogram on 04/22/2022 showed EF of 30%. No signs of florid heart failure. However patient is shortness of breath. Echocardiogram ordered. Lasix continued. Beta-timothy and Entresto continued. Paroxysmal A-fib In sinus rhythm on presentation Carvedilol and Eliquis continued. Diabetes mellitus Blood Glucose is not within goal Basal insulin continued. Glipizide continued ordered prandial insulin at this time. Accu-Chek with correction scale insulin ordered. Hypertension Blood pressure is not within goal Home blood pressure medication continued. As needed hydralazine ordered. Trend blood pressure and adjust blood pressure medications. DVT prophylaxis Therapeutic Eliquis for A-fib continued Charges/Coding Visit Charges Inpatient E&M: 83184 Init Hosp L3 08/07/22 0529 <Electronically signed by Patel Nguyen MD> Cosigner Signature (if applicable): CC: Dr. Patel Nguyen MD; Dr. Margo Tatum DO~ Signed [facility] Work Phone: 1(238) 654-169703-04-[address] Ortez [facility] August 07, 2022 12:09am Note Date/Time August 06, 2022 7:09 pm [facility] Medical Records Department [address] [place] [id number] Emergency Department Summary 08/06/22 MR#: [id number] Acct: [id number] Name: PITO HENDRIX Rep #:[id number] : 1970 51 From: L[place] HOPPER PCP: Dr. Margo Tatum DO Status:ADM HERMINIA Location: [address] <WARD Lyle - Last Filed: 08/06/22 21:38> History of Present Illness Chief Complaint: Chest Pain Narrative Narrative: Patient presenting today with intermittent stabbing midsternal chest pain that started around 4:30 PM. The pain radiates to her back and shoulders bilaterally. She states that this all started when she went to reach for something on the counter. She has been having mild intermittent midsternal chest pain over the past week, but today it is much worse. Patient also feels slightly short of breath. Patient states she has an extensive history of cardiac conditions and had an NSTEMI in May 2021 where her LAD was stented,she then underwent a catheterization in September 2021 after having an NSTEMI. She states her recent echocardiogram showed that she had an ejection fraction of 25 to 30%. She is supposed to be having pacemaker and defibrillator placed later this month. She denies any history of blood clots. PMH includes CHF, COPD, diabetes mellitus. [facility] <WARD Lyle - Last Filed: 08/06/22 21:38> [facility] Medical History (Updated 08/06/22 @ 23:23 by Shanta Wagoner) Atherosclerotic heart disease of [place] coronary artery without angina pectoris Atrial fibrillation Benign hypertension Bilateral interstitial pneumonia Cardiomyopathy, ischemic Chronic low back pain Chronic nausea Chronic pain COPD (chronic obstructive pulmonary disease) Coronary artery disease COVID-19 virus infection Diabetes Difficult intubation Former smoker HFrEF (heart failure with reduced ejection fraction) Hirsutism History of non-ST elevation myocardial infarction (NSTEMI) (09/08/21) Hyperglycemia due to type 2 diabetes mellitus Hyperlipidemia Hypertension Irregular heart beat Kidney stones Left bundle branch block (LBBB) Myocardial infarct Non-ischemic cardiomyopathy Non-ST elevation (NSTEMI) myocardial infarction Nonobstructive atherosclerosis of coronary artery Obesity Paroxysmal atrial fibrillation Seizures Syncope Thyroid nodule Type 2 diabetes mellitus Vomiting Home Medications glipizide 10 mg tablet, extended release 24 hr 10 mg PO BID diabetes 07/11/20 [History Last Taken 08/06/22] dapagliflozin 10 mg tablet (Farxiga) 10 mg PO DAILY this is a dose increase #90 tabs 10/29/21 [Rx Last Taken 08/06/22 10:00] insulin glargine 100 unit/mL (3 mL) subcutaneous pen (Lantus Solostar U-100 Insulin) 10 unit subcut DAILY Check with primary doctor 11/09/21 [History Last Taken 08/06/22 10:00] apixaban 5 mg tablet (Eliquis) 5 mg PO BID #60 tabs 01/27/22 [Rx Last Taken 08/06/22 10:00] hydroxyzine HCl 25 mg tablet 25 - 50 mg PO QHS PRN anxiety 02/24/22 [History Last Taken Unknown] melatonin 10 mg tablet 10 mg PO HS PRN Insomnia 02/24/22 [History Last Taken Unknown] clopidogrel 75 mg tablet (Plavix) 75 mg PO DAILY #90 tabs 04/13/22 [Rx Last Taken 08/06/22] flash glucose scanning reader (MoneyMailStyle Sanam 2 [place]) #1 ea 06/09/22 [Rx Last Taken Unknown] flash glucose sensor (FreeStyle Sanam 2 Sensor kit) #2 ea 06/09/22 [Rx Last Taken Unknown] BD Ultra-Fine [place] Pen Needle 32 gauge x 5/32 (pen needle, diabetic) #100 ea 07/29/22 [Rx Last Taken Unknown] atorvastatin 80 mg tablet 80 mg PO QHS Check with primary doctor 08/06/22 [History Last Taken 08/05/22] carvedilol 25 mg tablet 25 mg PO BID Check with primary doctor 08/06/22 [History Last Taken 08/06/22 10:00] diphenhydramine HCl 25 mg tablet 25 mg PO Q4H PRN PRN Allergy Symptoms 08/06/22 [History Last Taken Unknown] furosemide 40 mg tablet 40 mg PO DAILY Check with primary doctor 08/06/22 [History Last Taken 08/06/22] hydrocodone-acetaminophen 5-325mg 5mg-325mg 1 tab PO DAILY Check with primary doctor 08/06/22 [History Last Taken 08/06/22 10:00] insulin lispro 100 unit/mL subcutaneous pen (Humalog KwikPen (U-100) Insulin) 10unit subcut TIDCM Check with primary doctor 08/06/22 [History Last Taken 08/06/22 10:00] isosorbide mononitrate 30 mg tablet,extended release 24 hr 30 mg PO DAILY Check with primary doctor 08/06/22 [History Last Taken Unknown] methimazole 10 mg tablet 10 mg PO DAILY Check with primary doctor 08/06/22 [History Last Taken 08/06/22 10:00] naloxegol 25 mg tablet (Movantik) 25 mg PO QAM Check with primary doctor 08/06/22 [History Last Taken Unknown] omeprazole magnesium 20 mg tablet,delayed release (Prilosec OTC) 20 mg PO DAILY Check with primary doctor 08/06/22 [History Last Taken Unknown] promethazine 25 mg tablet 25 mg PO TID PRN PRN Nausea And Vomiting 08/06/22 [History Last Taken Unknown] sacubitril 49 mg-valsartan 51 mg tablet (Entresto) 1 tab PO BID Check with primary doctor 08/06/22 [History Last Taken 08/06/22 10:00] tizanidine 4 mg tablet 4 mg PO QHS 08/06/22 [History Last Taken 08/05/22] Allergy/AdvReac Type Severity Reaction Status Date / Time amoxicillin trihydrate AdvReac Vomiting Verified 06/30/22 10:59 [From Augmentin] potassium clavulanate AdvReac Vomiting Verified 06/30/22 10:59 [From Augmentin] Family History Father Myocardial infarction Cancer prostate, leukemia Agent orange exposure Diabetes Sister Diabetes COPD (chronic obstructive pulmonary disease) Surgical History (Updated 08/06/22 @ 23:23 by Shanta Wagoner) History of appendectomy History of back surgery History of cholecystectomy (1991) History of cholecystectomy History of coronary artery stent placement (05/19/21) History of hysterectomy History of laparoscopy History of left heart catheterization (09/14/21) History of tonsillectomy Status post insertion of nerve stimulator Social History household members: significant other Smoking Status: Former smoker how long ago did patient quit smokin alcohol intake: current alcohol intake frequency: holidays/special occasions only substance use type: does not use caffeine: Yes ROS <WARD Lyle - Last Filed: 08/06/22 21:38> ROS ED Constitutional Constitutional ED: Denies chills, fever(s) or sweats Eyes Eyes: Denies blurry vision or diplopia Cardiovascular Cardiovascular: Denies chest pain or palpitations Respiratory/Chest Respiratory/Chest: Reports dyspnea; Denies cough, tachypnea or wheezing Gastrointestinal Gastrointestinal: Denies abdominal pain, constipation, diarrhea, nausea or vomiting Genitourinary Genitourinary ED: Denies dysuria, hematuria or urinary urgency Musculoskeletal Musculoskeletal: Denies arthralgias, back pain, myalgias or neck pain Integumentary Denies abscess, Abrasions or rash Neurologic Neurologic: Denies confusion, dizziness or paresthesias Psychiatric Psychiatric: Denies anxiety, depression, suicidal ideation or suicidal thoughts Allergic/Immunologic Allergic/Immunologic ED: Denies lip swelling, mouth swelling or urticaria EXAM <WARD Lyle - Last Filed: 08/06/22 21:38> Physical Exam Const Vital Signs: 08/06/22 17:51 08/06/22 18:03 08/06/22 20:07 Temperature 96.7 F L Temperature Source Temporal Pulse Rate 76 80 77 Respiratory Rate 16 14 14 Blood Pressure 146/75 H 146/75 H 162/94 H Blood Pressure Mean 98 98 116 Pulse Ox 100 98 99 Oxygen Delivery Method Room Air Room Air Room Air 08/06/22 21:35 Temperature Temperature Source Pulse Rate 84 Respiratory Rate 17 Blood Pressure 154/81 H Blood Pressure Mean 105 Pulse Ox 97 Oxygen Delivery Method Room Air Positive well developed, obese and no apparent distress General Appearance ED: well developed Nutritional Appearance: obese HEENT Reports normocephalic and head/scalp atraumatic Mouth ED: Yes moist mucous membranes normal Eyes PERRL and EOMs intact bilaterally Neck full ROM and supple Chest Wall inspection of chest normal Resp normal respiratory effort and clear to auscultation bilaterally Cardio regular rate and regular rhythm GI soft to palpation, non-tender, non-distended and no masses Back/Spine normal ROM and normal to inspection Extremity normal to inspection and full ROM Neuro oriented x3, CN's II-XII intact bilaterally, moves all extremities, no focal motor deficits and no sensory deficits noted Sensorium / Orientation: awake and alert Psych mental status grossly normal and thought process normal Skin no rashes or lesions noted and no wounds <Dr. Arjun Ortez DO - Last Filed: 08/06/22 23:53> Physical Exam Const Vital Signs: 08/06/22 17:51 08/06/22 18:03 08/06/22 20:07 Temperature 96.7 F L Temperature Source Temporal Pulse Rate 76 80 77 Respiratory Rate 16 14 14 Blood Pressure 146/75 H 146/75 H 162/94 H Blood Pressure Mean 98 98 116 Pulse Ox 100 98 99 Oxygen Delivery Method Room Air Room Air Room Air 08/06/22 21:35 Temperature Temperature Source Pulse Rate 84 Respiratory Rate 17 Blood Pressure 154/81 H Blood Pressure Mean 105 Pulse Ox 97 Oxygen Delivery Method Room Air <Dr. Arjun Ortez, - Last Filed: 08/06/22 23:53> Heart Score History: Moderately Suspicious ECG: Nonspecific Repolarization Age: >45 - <65 years Risk Factors: >/= 3 Risk Factors or History of CAD Troponin: </= Normal Limit Score: 5 MDM <WARD Lyle - Last Filed: 08/06/22 21:38> MDM MDM Narrative Medical decision making narrative: Patient presenting with midsternal intermittent chest pain that she has had for the past week that acutely worsened today. Patient had an NSTEMI in May 2021 where her LAD was stented, she then underwent a catheterization in September 2021 after having an NSTEMI. She states that her most recent echocardiogram in 04/2022 showed an ejection fracture of 25 to 30% and she is supposed to be having a defibrillator and pacemaker placed this month. Considered PE, however,patient is on Eliquis and has no history of blood clots. CBC unremarkable for any leukocyte cyst or anemia. BMP unremarkable aside from a BUN of 26 and a glucose of 244. Initial troponin WNL, delta troponin normal. Chest x-ray does not show any pneumothorax, pleural effusion, or infiltrates. Reexamination patient states she is still having chest pain and feels short of breath, she states she feels like she just ran a marathon. Patient may need an updated echocardiogram and stress test. She has been discussed with the hospitalist forpotential admission. Lab Data Labs: Laboratory Results - last 24 hr 08/06/22 08/06/22 08/06/22 18:00 18:00 20:26 WBC 6.4 RBC 4.26 Hgb 13.6 Hct 41.2 MCV 96.7 MCH 31.9 MCHC 33.0 RDW Std Deviation 47.3 H RDW Coeff of Tomi 13.4 Plt Count 198 MPV 10.2 Immature Gran % (Auto) 0.300 Neut % (Auto) 55.6 Lymph % (Auto) 35.2 [place] % (Auto) 6.6 Eos % (Auto) 2.0 Baso % (Auto) 0.3 Absolute Neuts (auto) 3.5 Absolute Lymphs (auto) 2.24 Nucleated RBC % 0 Sodium 138 Potassium 4.0 Chloride 109 H Carbon Dioxide 20.0 L Anion Gap 9 BUN 26 H Creatinine 0.90 Est GFR (MDRD) Af Amer 85 Est GFR (MDRD) Non-Af 70 BUN/Creatinine Ratio 28.9 H Glucose 244 H Calcium 9.2 Troponin I High Sens 7 7 Radiography Diagnostic Testing: Clinical Impression(s) from Imaging Studies Chest X-Ray 08/06/22 18:39 IMPRESSION: No radiographic evidence of acute cardiopulmonary disease. Electronically Signed: Gustavo Dejesus MD at 19:12 EST , EKG Initial EKG: Comments: 78 bpm, no ST elevation, sinus rhythm with PACs, left bundle branch block. EKG reviewed and interpreted by attending ED physician. <Dr. Arjun Ortez, DO - Last Filed: 08/06/22 23:53> [facility] Lab Data Labs: Laboratory Results - last 24 hr 08/06/22 08/06/22 08/06/22 18:00 18:00 20:26 WBC 6.4 RBC 4.26 Hgb 13.6 Hct 41.2 MCV 96.7 MCH 31.9 MCHC 33.0 RDW Std Deviation 47.3 H RDW Coeff of Tomi 13.4 Plt Count 198 MPV 10.2 Immature Gran % (Auto) 0.300 Neut % (Auto) 55.6 Lymph % (Auto) 35.2 [place] % (Auto) 6.6 Eos % (Auto) 2.0 Baso % (Auto) 0.3 Absolute Neuts (auto) 3.5 Absolute Lymphs (auto) 2.24 Nucleated RBC % 0 Sodium 138 Potassium 4.0 Chloride 109 H Carbon Dioxide 20.0 L Anion Gap 9 BUN 26 H Creatinine 0.90 Est GFR (MDRD) Af Amer 85 Est GFR (MDRD) Non-Af 70 BUN/Creatinine Ratio 28.9 H Glucose 244 H Calcium 9.2 Troponin I High Sens 7 7 Radiography Diagnostic Testing: Clinical Impression(s) from Imaging Studies Chest X-Ray 08/06/22 18:39 IMPRESSION: No radiographic evidence of acute cardiopulmonary disease. Electronically Signed: Gustavo Dejesus MD at 19:12 EST , Treatment and Re-Evaluation :: I have personally performed a face to face assessment of the patient and have reviewed the DARRION Note. I performed a substantive portion of the visit including all aspects of the following. My wu findings include: History: Patient presents with chest pain that began today while she was at work. Patient states the was helping somebody go to the bathroom when she started having some pain in her chest. Patient describes it as a heaviness. Patient states it is over the substernal area. Patient states she has had a history of coronary artery disease in the past. Patient states she is scheduledfor a pacemaker defibrillator placement later this month. Patient denies any shortness of breath. Patient denies any nausea or vomiting. Patient denies anydiaphoresis. Exam: Vital signs are stable. Patient is afebrile. Patient is in no acute distress. Oral mucosa is pink and moist. Neck is supple. Trachea is midline. There is no JVD. Heart was regular rate and rhythm. Lungs are clear and equal bilaterally. Abdomen is soft nontender. Cranial nerves II through XII are intact. There are no focal motor or sensory deficits. Medical Decision Making: Differential diagnosis includes cardiac ischemia, cardiac dysrhythmia, congestive heart failure, pneumonia, and pneumothorax. EKGwill be obtained to assess for cardiac ischemia and cardiac dysrhythmia. CBC will be obtained to assess for anemia and leukocytosis. Basic metabolic profilewill be obtained to assess for glucose, electrolyte abnormality, and renal function. High- sensitivity troponin will be obtained to assess for cardiac ischemia. 2-hour repeat high-sensitivity troponin will be obtained to assess for ongoing cardiac ischemia. Chest x-ray will be obtained to assess for pneumonia and congestive heart failure. EKG was obtained. On my independent interpretation, there is a normal sinus rhythm with a rate of 85. There is a left bundle branch block pattern noted. DE interval was normal at 188. QRS interval was slightly prolonged at 160 milliseconds. QTc interval was slightly prolonged at 504 ms. [place] was borderline left axis deviation at - 19. This was unchanged compared to previous EKG dated 04/05/2022. Portable 1 view chest x-ray was obtained. On my independent interpretation, lung benavides are clear. There is normal cardiac silhouette. Bony thorax is normal. There is no acute process noted. Radiologist also interpreted the x-ray and agrees. Initial high-sensitivity troponin was normal at 7. 2-hour repeat high-sensitivity troponin was normal at7. Patient was advised of her findings. Patient has a HEART score of 5. Because of this, patient will be admitted to the hospital for observation. Patient understands and is agreeable with the plan. Case was discussed with thehospitalist. Will admit the patient to PCU for observation. Discharge Plan Dx/Rx/DC Orders Clinical Impression: Left bundle branch block (LBBB), HFrEF (heart failure with reduced ejection fraction), History of coronary artery stent placement, Chest pain, Shortness of breath Disposition Disposition: Acute Care Hospital [facility] Discharge Date/Time: 08/06/22 22:39 What to do if you have Problems For any increased pain, shortness of breath, bleeding, nausea or vomiting, chestpain, or any unexpected problems, contact your Primary Care Provider. Call [facility] ([phone]) or report to the closest Emergency Room. Call 911 if necessary. 08/06/222138 <Electronically signed by Lolis HOPPER> Cosigner Signature (if applicable): 08/07/22 000 <Electronically signed by Arjun Ortez DO> CC: Dr. Margo Tatum DO ~ Signed [facility] Work Phone: 1(885) 931-686212-03-2022 Hospital Discharge instructions Additional Instructions Please soak thumb in warm water 2-3 times a day for 10-15 mins for the next several days. Keep area clean, dry, and covered. Please return if you begin to show signs of infection such as increased redness, increased swelling, or fever develops.[facility] Work Phone: 1(380) 231-847002-11-2022 NoteHNO ID: [id number] Author: Jeison Ponce APRN.COMPUTER TECHNICIAN Service: ? Author Type: Nurse Practitioner Type: [...] LAMINECTOMY W/O FFD 06/07 VERT SEG LUMBAR 2012 - S SPINAL CORD STIMULATOR, 2015 ALLERGIES Augmentin [Amoxicillin-Pot Clavulanate] MEDICATIONS aspirin, enteric [...] due to increased w (more content not included)...[facility]02-03-2022 NoteHNO ID: [id number] Author: Max Live APRN.COMPUTER TECHNICIAN Service: ? Author Type: Nurse Practitioner Type: [...] LUMBAR 2011 - S SPINAL CORD STIMULATOR, 2015 ALLERGIES Augmentin [Amoxicillin-Pot Clavulanate] MEDICATIONS aspirin, enteric [...] symptoms occur. Patient agreeable to treatment plan. Max Live APRN.[facility]12-14-2021 Evaluation note* Diagnosis Onset Date Resolution Status Atherosclerotic heart diseas e of [place] coronary artery without angina pectoris acute Cardiomyopathy, ischemic acu te History of coronary artery stent placement May 192020 acute Type 2 diabetes mellitus acu te Benign hypertension chronic HFrEF (heart failure with re duced ejection fraction) chronic Hyperlipidemia chronic Left bundle branch block (LBBB) chronic Acute respiratory failure re solved Congestive heart failure res olved Non-ST elevation (NSTEMI) my ocardial infarction resolved Cardiomyopathy, ischemic acu te History of coronary artery stent placement May 192020 acute Benign hypertension chronic HFrEF (heart failure with re duced ejection fraction) chronic Left bundle branch block (LBBB) [facility] Work Phone: 1(933) 290-682312-14-2021 Evaluation note* Diagnosis Onset Date Resolution Status Therapeutic opioid-induced constipation (OIC) acute Nausea and vomiting resolved Cardiomyopathy, ischemic acu te History of coronary artery stent placement May 192020 acute Palpitations acute Benign hypertension chronic Left bundle branch block (LBBB) chronic Constipation chronic Nausea and vomiting resolved Cardiomyopathy, ischemic acu te History of coronary artery stent placement May 192020 acute Palpitations acute Benign hypertension chronic Hyperlipidemia chronic Hyperthyroidism chronic Left bundle branch block (LBBB) [facility] Work Phone: 1([phone]) 922-211712-14-2021 Evaluation note* Diagnosis Onset Date Resolution Status Therapeutic opioid-induced constipation (OIC) acute Nausea and vomiting resolved Cardiomyopathy, ischemic acu te History of coronary artery stent placement May 192020 acute Palpitations acute Benign hypertension chronic Left bundle branch block (LBBB) chronic Constipation chronic Nausea and vomiting resolved Cardiomyopathy, ischemic acu te History of coronary artery stent placement May 192020 acute Palpitations acute Benign hypertension chronic Hyperlipidemia chronic Hyperthyroidism chronic Left bundle branch block (LBBB) chronic Cardiomyopathy, ischemic acu te Dyspnea on exertion acute History of coronary artery stent placement May 192020 acute Palpitations acute Benign hypertension chronic Hyperlipidemia chronic Hyperthyroidism chronic Left bundle branch block (LBBB) chronic Syncope [facility] Work Phone: 1(173) 166-182712-14-2021 Evaluation note* Diagnosis Onset Date Resolution Status Cardiomyopathy, ischemic acu te History of coronary artery stent placement May 192020 acute Palpitations acute Benign hypertension chronic Left bundle branch block (LBBB) chronic Constipation chronic Nausea and vomiting resolved Cardiomyopathy, ischemic acu te History of coronary artery stent placement May 192020 acute Palpitations acute Benign hypertension chronic Hyperlipidemia chronic Hyperthyroidism chronic Left bundle branch block (LBBB) chronic Cardiomyopathy, ischemic acu te Dyspnea on exertion acute History of coronary artery stent placement May 192020 acute Palpitations acute Benign hypertension chronic Hyperlipidemia chronic Hyperthyroidism chronic Left bundle branch block (LBBB) chronic Syncope [facility] Work Phone: 1(598) 396-369812-14-2021 Evaluation note* Diagnosis Onset Date Resolution Status Cardiomyopathy, ischemic acu te History of coronary artery stent placement May 192020 acute Palpitations acute Benign hypertension chronic Left bundle branch block (LBBB) chronic Constipation chronic Nausea and vomiting resolved Cardiomyopathy, ischemic acu te History of coronary artery stent placement May 192020 acute Palpitations acute Benign hypertension chronic Hyperlipidemia chronic Hyperthyroidism chronic Left bundle branch block (LBBB) chronic Cardiomyopathy, ischemic acu te Dyspnea on exertion acute History of coronary artery stent placement May 192020 acute Palpitations acute Benign hypertension chronic Hyperlipidemia chronic Hyperthyroidism chronic Left bundle branch block (LBBB) chronic Syncope chronic Thyrotoxicosis chronic Type 2 diabetes mellitus [facility] Work Phone: 1(351) 999-527612-14-2021 Evaluation note* Diagnosis Onset Date Resolution Status Constipation chronic Nausea and vomiting resolved Cardiomyopathy, ischemic acu te History of coronary artery stent placement May 192020 acute Palpitations acute Benign hypertension chronic Hyperlipidemia chronic Hyperthyroidism chronic Left bundle branch block (LBBB) chronic Cardiomyopathy, ischemic acu te Dyspnea on exertion acute History of coronary artery stent placement May 192020 acute Palpitations acute Benign hypertension chronic Hyperlipidemia chronic Hyperthyroidism chronic Left bundle branch block (LBBB) chronic Syncope chronic Thyrotoxicosis chronic Type 2 diabetes mellitus chr onic Multiple thyroid nodules acu te Multiple thyroid nodules acu te [facility] Work Phone: 1(409) 146-415412-14-2021 Evaluation note* Diagnosis Onset Date Resolution Status Cardiomyopathy, ischemic acu te Dyspnea on exertion acute History of coronary artery stent placement May 192020 acute Palpitations acute Benign hypertension chronic Hyperlipidemia chronic Hyperthyroidism chronic Left bundle branch block (LBBB) chronic Syncope chronic Thyrotoxicosis chronic Type 2 diabetes mellitus chr onic Multiple thyroid nodules acu te Multiple thyroid nodules acu te Hyperthyroidism chronic Obesity chronic Type 2 diabetes mellitus [facility] Work Phone: 1(878) 921-259912-14-2021 Evaluation note* Diagnosis Onset Date Resolution Status Cardiomyopathy, ischemic acu te Dyspnea on exertion acute History of coronary artery stent placement May 192020 acute Palpitations acute Benign hypertension chronic Hyperlipidemia chronic Hyperthyroidism chronic Left bundle branch block (LBBB) chronic Syncope chronic Thyrotoxicosis chronic Type 2 diabetes mellitus chr onic Multiple thyroid nodules acu te Multiple thyroid nodules acu te Hyperthyroidism chronic Obesity chronic Type 2 diabetes mellitus chr onic Chest pain acute History of coronary artery stent placement May 192020 acute Shortness of breath acute HFrEF (heart failure with re duced ejection fraction) chronic Left bundle branch block (LBBB) chronic [facility] Work Phone: 1(280) 335-963912-14-2021 Evaluation note* Diagnosis Onset Date Resolution Status Hyperthyroidism chronic Obesity chronic Type 2 diabetes mellitus [facility] History of coronary artery stent placement May 192020 acute HFrEF (heart failure with re duced ejection fraction) chronic Left bundle branch block (LBBB) chronic Cardiomyopathy, ischemic acu te Paroxysmal atrial fibrillation acute Presence of cardiac resynchr onization therapy defibrillator (CRTT-D) acute HFrEF (heart failure with re duced ejection fraction) chronic Left bundle branch block (LBBB) chronic Cardiomyopathy, ischemic acu te Presence of cardiac resynchr onization therapy defibrillator (CRTT-D) acute HFrEF (heart failure with re duced ejection fraction) chronic Left bundle branch block (LBBB) chronic Cardiomyopathy, ischemic acu te History of coronary artery stent placement May 192020 acute Palpitations acute Presence of cardiac resynchr onization therapy defibrillator (CRTT-D) acute Benign hypertension chronic Hyperlipidemia chronic Left bundle branch block (LBBB) chronic Hyperthyroidism chronic Obesity chronic Type 2 diabetes mellitus [facility] Work Phone: [phone]) 723-387012-14-2021 Evaluation note* Diagnosis Onset Date Resolution Status History of coronary artery stent placement May 192020 acute HFrEF (heart failure with re duced ejection fraction) chronic Left bundle branch block (LBBB) chronic Cardiomyopathy, ischemic acu te Paroxysmal atrial fibrillation acute Presence of cardiac resynchr onization therapy defibrillator (CRTT-D) acute HFrEF (heart failure with re duced ejection fraction) chronic Left bundle branch block (LBBB) chronic Cardiomyopathy, ischemic acu te Presence of cardiac resynchr onization therapy defibrillator (CRTT-D) acute HFrEF (heart failure with re duced ejection fraction) chronic Left bundle branch block (LBBB) chronic Cardiomyopathy, ischemic acu te History of coronary artery stent placement May 192020 acute Palpitations acute Presence of cardiac resynchr onization therapy defibrillator (CRTT-D) acute Benign hypertension chronic Hyperlipidemia chronic Left bundle branch block (LBBB) chronic Hyperthyroidism chronic Obesity chronic Type 2 diabetes mellitus [facility] Work Phone: Discharge summary Author Dr. Mathew [facility] August 07, 2022 5:02pm Note Date/Time August 07, 2022 4:38 pm [facility] Medical Records Department [address] [place] [address] Instructions for Home/Discharge Instructions 08/07/22 1637 MR#: [id number] Acct: [id number] Name: PITO HENDRIX Rep #:[id number] : 1970 51 From: Suma Mathew MD PCP: Dr. Margo Tatum, DO Status:ADM HERMINIA Discharge Instructions Diet Discharge Diet: - (DASH diet) Activity Discharge Activity: Return to Normal Activity Follow Up Care Test Results: Test results from this visit will be discussed in further detail at your follow- up appointment, if applicable. Discharge Plan Admission Admit Date/Time: 08/06/22 21:46 Primary Reason for Your Visit: Chest pain Attending Provider: Suma Mathew Primary Care Provider: Margo Tatum Consulting Providers: Patel Nguyen Patient Instructions: ED Chest Pain, Noncardiac Additional Instructions / Restrictions: -Continue home medications -Please call your wire photo operator news office upon discharge to schedule hospital follow-up appointment -Please call your primary care provider's office upon discharge to schedule a hospital follow up within 1 week. -For any concerning signs or symptoms please call 911 or proceed to the nearest emergency department Discharge Orders/Prescriptions Prescriptions: Continued glipizide 10 mg tablet extended release 24hr 10 mg PO BID Label Comments: take 1 tablet by mouth twice a day insulin glargine [Lantus Solostar U-100 Insulin] 100 unit/mL (3 mL) insulin pen 10 unit subcut DAILY melatonin 10 mg tablet 10 mg PO HS PRN (Reason: Insomnia) hydroxyzine HCl 25 mg tablet 25 - 50 mg PO QHS PRN (Reason: anxiety) clopidogrel [Plavix] 75 mg tablet 75 mg PO DAILY Qty: 90 3RF (DME) FreeStyle Sanam 2 Sensor Kit See Rx Instructions .Route Qty: 2 5RF Rx Instructions: 1 sensor q 14 days (DME) FreeStyle Sanam 2 [place] Misc See Rx Instructions .Route Qty: 1 0RF Rx Instructions: As directed tizanidine 4 mg tablet 4 mg PO QHS Label Comments: take 1 tablet by mouth every evening diphenhydramine HCl 25 mg Tablet 25 mg PO Q4H PRN PRN (Reason: Allergy Symptoms) promethazine 25 mg tablet 25 mg PO TID PRN PRN (Reason: Nausea And Vomiting) Label Comments: take 1 tablet by mouth three times a day if needed for nausea and vomiting furosemide 40 mg tablet 40 mg PO DAILY atorvastatin 80 mg tablet 80 mg PO QHS carvedilol 25 mg tablet 25 mg PO BID Rx Instructions: must administer with a meal/food hydrocodone-acetaminophen 5-325 mg tablet 1 tab PO DAILY isosorbide mononitrate 30 mg tablet extended release 24 hr 30 mg PO DAILY methimazole 10 mg tablet 10 mg PO DAILY insulin lispro [Humalog KwikPen Insulin] 100 unit/mL insulin pen 10 unit subcut TIDCM omeprazole magnesium [Prilosec OTC] 20 mg tablet,delayed release (DR/EC) 20 mg PO DAILY Movantik 25 mg tablet 25 mg PO QAM Rx Instructions: must be taken on empty stomach; no food 1 hr after or 2-3 hrs before dose Entresto 49-51 mg tablet 1 tab PO BID Farxiga 10 mg tablet 10 mg PO DAILY Qty: 90 3RF Eliquis 5 mg tablet 5 mg PO BID Qty: 60 11RF (DME) pen needle, diabetic [BD Ultra-Fine [place] Pen Needle] 32 gauge x 5/32 needle See Rx Instructions .Route Qty: 100 5RF Rx Instructions: 4x/day Referrals / Follow Up: Cr Ho MD [Med Staff - Active Staff] - See Referral Note (You will need tofollow-up with cardiology upon discharge, please call the office of Dr. Ho upon discharge to schedule your hospital follow-up appointment (ph [phone])) Margo Tatum DO [Primary Care Provider] - Within 1 Week Disposition Disposition (needs filled in before D/C Order can be placed): Home, Self Care 08/07/22 1702<Electronically signed by Suma Mathew MD>Suma Mathew MD CC: Dr. Patel Nguyen MD; Dr. Margo Tatum DO ~ Signed [facility] Work Phone: Discharge summary Author Dr. Mathew [facility] August 07, 2022 5:14pm Note Date/Time August 07, 2022 5:05 pm [facility] Medical Records Department [address] [place] [address] Discharge Summary 08/07/22 1702 MR#: [id number] Acct: [id number] Name: PITO HENDRIX Rep #:[id number] : 1970 51 From: Suma Mathew MD PCP: Dr. Margo Tatum DO Status:ADM HERMINIA Location: [place] [address] Providers Date of Admission: 08/06/22 Date of Discharge: 08/07/22 Primary Care Physician: Dr. Margo Tatum DO Reason For Visit: CHEST PAIN Diagnosis Discharge Diagnosis (1) Chest pain: Status: Acute Code(s): R07.9 - Chest pain, unspecified (2) Shortness of breath: Status: Acute Code(s): R06.02 - Shortness of breath Plan #chronic HFrEF #paroxysmal afib #Retention #Type 2 diabetes mellitus #Hypothyroidism Medications at Discharge Home Medications glipizide 10 mg tablet, extended release 24 hr 10 mg PO BID diabetes 07/11/20 dapagliflozin 10 mg tablet (Farxiga) 10 mg PO DAILY this is a dose increase #90 tabs 10/29/21 insulin glargine 100 unit/mL (3 mL) subcutaneous pen (Lantus Solostar U-100 Insulin) 10 unit subcut DAILY Check with primary doctor 11/09/21 apixaban 5 mg tablet (Eliquis) 5 mg PO BID #60 tabs 01/27/22 hydroxyzine HCl 25 mg tablet 25 - 50 mg PO QHS PRN anxiety 02/24/22 melatonin 10 mg tablet 10 mg PO HS PRN Insomnia 02/24/22 clopidogrel 75 mg tablet (Plavix) 75 mg PO DAILY #90 tabs 04/13/22 flash glucose scanning reader (FreeStyle Sanam 2 [place]) #1 ea 06/09/22 flash glucose sensor (FreeStyle Sanam 2 Sensor kit) #2 ea 06/09/22 BD Ultra-Fine [place] Pen Needle 32 gauge x 5/32 (pen needle, diabetic) #100 ea 07/29/22 atorvastatin 80 mg tablet 80 mg PO QHS Check with primary doctor 08/06/22 carvedilol 25 mg tablet 25 mg PO BID Check with primary doctor 08/06/22 diphenhydramine HCl 25 mg tablet 25 mg PO Q4H PRN PRN Allergy Symptoms 08/06/22 furosemide 40 mg tablet 40 mg PO DAILY Check with primary doctor 08/06/22 hydrocodone-acetaminophen 5-325mg 5mg-325mg 1 tab PO DAILY Check with primary doctor 08/06/22 insulin lispro 100 unit/mL subcutaneous pen (Humalog KwikPen (U-100) Insulin) 10unit subcut TIDCM Check with primary doctor 08/06/22 isosorbide mononitrate 30 mg tablet,extended release 24 hr 30 mg PO DAILY Check with primary doctor 08/06/22 methimazole 10 mg tablet 10 mg PO DAILY Check with primary doctor 08/06/22 naloxegol 25 mg tablet (Movantik) 25 mg PO QAM Check with primary doctor 08/06/22 omeprazole magnesium 20 mg tablet,delayed release (Prilosec OTC) 20 mg PO DAILY Check with primary doctor 08/06/22 promethazine 25 mg tablet 25 mg PO TID PRN PRN Nausea And Vomiting 08/06/22 sacubitril 49 mg-valsartan 51 mg tablet (Entresto) 1 tab PO BID Check with primary doctor 08/06/22 tizanidine 4 mg tablet 4 mg PO QHS 08/06/22 Hospital Course Procedures - (Stress test, echo) Summary of Care Provided Minutes Spent on Discharge: 32 Hospital Course: PITO HENDRIX, is a 51 F with a significant history of heart failure with reduced ejection fraction. Coronary disease, paroxysmal atrial fibrillation, hypothyroidism on methimazole, diabetes mellitus who presented to [facility] 08/06/2022 with sharp chest pain that felt sometimes like someone sitting on her chest and somewhat of a twisting sensation. She has a history of stents and has had 2 heart caths since then without need for repeatedintervention and follows actively with cardiology. Troponins were normal and EKG with no new ST changes. Notably she is supposed to have a pacemaker with defibrillator at [facility] on August 18, 2022. She was admitted for echocardiogram and stress test. Stress test showed no myocardial perfusion changes considered diagnostic for associated stress-induced myocardial ischemia. Echo largely unchanged from previous. Patient overall feeling better this evening and is comfortable with discharge with outpatient follow-up. Discharge instructions as followed: -Continue home medications -Please call your wire photo operator news office upon discharge to schedule hospital follow-up appointment -Please call your primary care provider's office upon discharge to schedule a hospital follow up within 1 week. -For any concerning signs or symptoms please call 911 or proceed to the nearest emergency department Physical Exam Narrative General: Alert, oriented, no apparent distress HEENT: Atraumatic, normocephalic Eyes: Anicteric, normal conjunctiva, extraocular movements grossly intact Neck: Supple Respiratory: Clear to auscultation bilaterally, normal respiratory effort Cardiovascular: Regular rate GI: Soft, nontender, nondistended Extremities: No edema Musculoskeletal: Moving all extremities Neuro: No overt focal neurological deficits Skin: No rashes appreciated Psych: Cooperative Weight / BMI Weight Weight: 98.7 kg Body Mass Index (BMI) 37.3 ABG / Lab / Microbiology Data Result Diagrams: 08/07/22 06:50 08/07/22 06:50 Laboratory: Laboratory Results - last 24 hr 08/06/22 18:00: WBC 6.4, RBC 4.26, Hgb 13.6, Hct 41.2, MCV 96.7, MCH 31.9, MCHC 33.0, RDW Std Deviation 47.3 H, RDW Coeff of Tomi 13.4, Plt Count 198, MPV 10.2, Immature Gran % (Auto) 0.300, Neut % (Auto) 55.6, Lymph % (Auto) 35.2, [place] % (Auto) 6.6, Eos % (Auto) 2.0, Baso % (Auto) 0.3, Absolute Neuts (auto) 3.5, Absolute Lymphs (auto) 2.24, Nucleated RBC % 0 08/06/22 18:00: Sodium 138, Potassium 4.0, Chloride 109 H, Carbon Dioxide 20.0 L, Anion Gap 9, BUN 26 H, Creatinine 0.90, Est GFR (MDRD) Af Amer 85, Est GFR (MDRD) Non-Af 70, BUN/Creatinine Ratio 28.9 H, Glucose 244 H, Calcium 9.2, Troponin I High Sens 7 08/06/22 20:26: Troponin I High Sens 7 08/07/22 00:34: Troponin I High Sens 8 08/07/22 00:37: POC Glucose 157 H 08/07/22 05:32: POC Glucose 212 H 08/07/22 06:50: WBC 5.2, RBC 4.08 L, Hgb 12.9, Hct 38.6, MCV 94.6, MCH 31.6, MCHC 33.4, RDW Std Deviation 45.5 H, RDW Coeff of Tomi 13.2, Plt Count 178, MPV 10.3, Immature Gran % (Auto) 0.200, Neut % (Auto) 49.3, Lymph % (Auto) 41.0, [place] % (Auto) 7.2, Eos % (Auto) 2.1, Baso % (Auto) 0.2, Absolute Neuts (auto) 2.6, Absolute Lymphs (auto) 2.12, Nucleated RBC % 0 08/07/22 06:50: Sodium 140, Potassium 3.5, Chloride 111 H, Carbon Dioxide 21.0, Anion Gap 8, BUN 28 H, Creatinine 0.87, Estim Creat Clear Calc 65.32, Est GFR (MDRD) Af Amer 88, Est GFR (MDRD) Non-Af 73, BUN/Creatinine Ratio 32.2 H, Glucose 196 H, Calcium 8.9, Triglycerides 97, Cholesterol 141, LDL Cholesterol 71, VLDL Cholesterol 19, HDL Cholesterol 51 08/07/22 11:48: POC Glucose 171 H Radiography Diagnostic Testing: Radiology Impression Chest X-Ray 08/06/22 18:39 IMPRESSION: No radiographic evidence of acute cardiopulmonary disease. Electronically Signed: Gustavo Dejesus MD at 19:12 EST , Echocardiogram 08/06/22 22:43 Interpretation Summary The study was technically difficult. Contrast injection was performed. Limited views were obtained. Mildly dilated left ventricle. Moderate segmental systolic dysfunction (see wall motion). The estimated ejection fraction is 35 %. Unable to assess diastolic dysfunction. Ordering Physician: Patel Nguyen Referring Physician: Margo Tatum Performed By: Eilsa Peralta, NEEL, RVT D/C Instructions Discharge Diet: - (DASH diet) Meaningful Use Info Meaningful Use Diagnoses (Choose all that apply): None applicable Discharge Plan Admission Admit Date/Time: 08/06/22 21:46 Primary Reason for Your Visit: Chest pain Attending Provider: Suma Mathew Primary Care Provider: Margo Tatum Consulting Providers: Patel Nguyen Instructions Patient Instructions: ED Chest Pain, Noncardiac Additional Instructions / Restrictions: -Continue home medications -Please call your wire photo operator news office upon discharge to schedule hospital follow-up appointment -Please call your primary care provider's office upon discharge to schedule a hospital follow up within 1 week. -For any concerning signs or symptoms please call 911 or proceed to the nearest emergency department Discharge Orders/Prescriptions Prescriptions: Continued glipizide 10 mg tablet extended release 24hr 10 mg PO BID Label Comments: take 1 tablet by mouth twice a day insulin glargine [Lantus Solostar U-100 Insulin] 100 unit/mL (3 mL) insulin pen 10 unit subcut DAILY melatonin 10 mg tablet 10 mg PO HS PRN (Reason: Insomnia) hydroxyzine HCl 25 mg tablet 25 - 50 mg PO QHS PRN (Reason: anxiety) clopidogrel [Plavix] 75 mg tablet 75 mg PO DAILY Qty: 90 3RF (DME) FreeStyle Sanam 2 Sensor Kit See Rx Instructions .Route Qty: 2 5RF Rx Instructions: 1 sensor q 14 days (DME) FreeStyle Sanam 2 [place] Misc See Rx Instructions .Route Qty: 1 0RF Rx Instructions: As directed tizanidine 4 mg tablet 4 mg PO QHS Label Comments: take 1 tablet by mouth every evening diphenhydramine HCl 25 mg Tablet 25 mg PO Q4H PRN PRN (Reason: Allergy Symptoms) promethazine 25 mg tablet 25 mg PO TID PRN PRN (Reason: Nausea And Vomiting) Label Comments: take 1 tablet by mouth three times a day if needed for nausea and vomiting furosemide 40 mg tablet 40 mg PO DAILY atorvastatin 80 mg tablet 80 mg PO QHS carvedilol 25 mg tablet 25 mg PO BID Rx Instructions: must administer with a meal/food hydrocodone-acetaminophen 5-325 mg tablet 1 tab PO DAILY isosorbide mononitrate 30 mg tablet extended release 24 hr 30 mg PO DAILY methimazole 10 mg tablet 10 mg PO DAILY insulin lispro [Humalog KwikPen Insulin] 100 unit/mL insulin pen 10 unit subcut TIDCM omeprazole magnesium [Prilosec OTC] 20 mg tablet,delayed release (DR/EC) 20 mg PO DAILY Movantik 25 mg tablet 25 mg PO QAM Rx Instructions: must be taken on empty stomach; no food 1 hr after or 2-3 hrs before dose Entresto 49-51 mg tablet 1 tab PO BID Farxiga 10 mg tablet 10 mg PO DAILY Qty: 90 3RF Eliquis 5 mg tablet 5 mg PO BID Qty: 60 11RF (DME) pen needle, diabetic [BD Ultra-Fine [place] Pen Needle] 32 gauge x 5/32 needle See Rx Instructions .Route Qty: 100 5RF Rx Instructions: 4x/day Referrals / Follow Up: Cr Ho MD [Med Staff - Active Staff] - See Referral Note (You will need tofollow-up with cardiology upon discharge, please call the office of Dr. Ho upon discharge to schedule your hospital follow-up appointment )) Margo Tatum DO [Primary Care Provider] - Within 1 Week Disposition Disposition (needs filled in before D/C Order can be placed): Home, Self Care Charges/Coding Visit Charges Inpatient E&M: 30615 Disch Hosp >30min 08/07/22 1714 <Electronically signed by Suma Mathew MD> Cosigner Signature (if applicable): CC: Dr. Margo Tatum DO; Dr. Suma Mathew MD~ Signed [facility] Work Phone: Discharge summary [facility] 10, 2023 10:56am Note Date/Time September 10, 2023 10:4 3am [facility] Medical Records Department [address] [place] [address] Instructions for Home/Discharge Instructions 09/10/23 1042 MR#: [id number] Acct: [id number] Name: PITO HENDRIX Rep #:[id number] : 1970 52 From: Jamie nolasco DO PCP: Dr. Margo Tatum, Status:ADM IN Discharge Instructions Diet Discharge Diet: No restrictions Activity Discharge Activity: No Restrictions Weight Bearing Status: Full weight bearing Follow Up Care Test Results: Test results from this visit will be discussed in further detail at your follow- up appointment, if applicable. Discharge Plan Admission Admit Date/Time: 09/06/23 16:33 Primary Reason for Your Visit: Hematuria Attending Provider: Jamie Manrique Primary Care Provider: Margo Tatum Consulting Providers: Navdeep Bourgeois; Berenice Short Instructions Additional Instructions / Restrictions: We have made several changes to her medications, as you are blood pressure was borderline low here and you are off of most of your heart failure medications. The following changes were made: ? Take Lasix 20 mg daily (decreased from 40 mg daily) ? Take spironolactone 12.5 mg daily (decreased from 50 mg daily) ? Take glipizide 10 mg daily (decreased from 10 mg twice daily) ? Take Coreg 6.25 mg twice daily (decreased from 25 mg twice daily) ? STOP taking the following meds: Entresto, Farxiga, ibuprofen Please take 4 more days of Macrobid to complete a 7-day course of antibiotics total. Please call the cardiology and endocrinology office to schedule follow-up appointments within the next few weeks and they can make further adjustments to your medications as needed. Follow-up with Dr. Short in the office next week and please have a repeat CBC drawn at that time to check your hemoglobin level. If you have recurrence of your hematuria (blood in the urine), please come back to the hospital. Discharge Orders/Prescriptions Prescriptions: New nitrofurantoin monohyd/m-cryst 100 mg Capsule 100 mg PO BID 4 Days Qty: 8 0RF furosemide [Lasix] 20 mg tablet 20 mg PO DAILY 30 Days Qty: 30 2RF Continued insulin glargine [Lantus Solostar U-100 Insulin] 100 unit/mL (3 mL) insulin pen 30 unit subcut DAILY (DME) FreeStyle Sanam 2 [place] Misc See Rx Instructions .Route Qty: 1 0RF Rx Instructions: As directed Trulicity 1.5 mg/0.5 mL pen injector 1.5 mg subcut QWEEK Qty: 2 3RF tizanidine 4 mg tablet 4 mg PO QHS Patient Comments: take 1 tablet by mouth every evening diphenhydramine HCl 25 mg Tablet 25 mg PO Q4H PRN PRN (Reason: Allergy Symptoms) promethazine 25 mg tablet 25 mg PO TID PRN PRN (Reason: Nausea And Vomiting) Patient Comments: take 1 tablet by mouth three times a day if needed for nausea and vomiting hydrocodone-acetaminophen 5-325 mg tablet 1 tab PO Q8H PRN (Reason: Check with primary doctor) omeprazole magnesium [Prilosec OTC] 20 mg tablet,delayed release (DR/EC) 20 mg PO DAILY Movantik 25 mg tablet 25 mg PO QAM PRN (Reason: Check with primary doctor) Rx Instructions: must be taken on empty stomach; no food 1 hr after or 2-3 hrs before dose insulin lispro [Humalog KwikPen Insulin] 100 unit/mL insulin pen 14 unit subcut TIDCM (DME) pen needle, diabetic [BD Ultra-Fine [place] Pen Needle] 32 gauge x 5/32 needle See Rx Instructions .Route Qty: 100 5RF Rx Instructions: 4x/day (DME) FreeStyle Sanam 2 Sensor Kit See Rx Instructions .Route Qty: 2 5RF Rx Instructions: 1 sensor q 14 days cholecalciferol (vitamin D3) 50 mcg (2,000 unit) capsule 1,000 unit PO DAILY methimazole 10 mg tablet 10 mg PO DAILY Qty: 90 1RF clopidogrel [Plavix] 75 mg tablet 75 mg PO DAILY Qty: 90 3RF Hold Instructions: Resume on 09/04/23. Eliquis 5 mg tablet See Rx Instructions .ROUTE .COMPLEX Qty: 180 3RF Hold Instructions: Resume on 09/04/23. Dose Instruction: take 1 tablet by mouth twice a day Patient Comments: since 08/25 Rx Instructions: take 1 tablet by mouth twice a day atorvastatin 80 mg tablet See Rx Instructions .ROUTE .COMPLEX Qty: 360 0RF Dose Instruction: take 1 tablet by mouth at bedtime Rx Instructions: take 1 tablet by mouth at bedtime isosorbide mononitrate 30 mg tablet extended release 24 hr See Rx Instructions .ROUTE .COMPLEX Qty: 360 0RF Dose Instruction: take 1 tablet by mouth once daily Rx Instructions: take 1 tablet by mouth once daily Changed carvedilol 25 mg tablet 6.25 mg PO BID 30 Days Qty: 180 2RF Rx Instructions: must administer with a meal/food glipizide 10 mg tablet extended release 24hr 10 mg PO DAILY 30 Days Qty: 180 2RF spironolactone 50 mg tablet 12.5 mg PO DAILY 30 Days Qty: 90 2RF Discontinued Farxiga 10 mg tablet 10 mg PO DAILY Entresto 97-103 mg tablet 1 tab PO BID ibuprofen 200 mg tablet 200 mg PO Q6H PRN (Reason: fever or pain) Hold Instructions: until after you see Dr. Short furosemide 40 mg tablet See Rx Instructions .ROUTE .COMPLEX Qty: 90 3RF Dose Instruction: take 1 tablet by mouth once daily Rx Instructions: take 1 tablet by mouth once daily Referrals / Follow Up: Margo Tatum DO [Primary Care Provider] - Disposition Disposition (needs filled in before D/C Order can be placed): Home, Self Care 09/10/23 1056<Electronically signed by Jamie Manrique DO>Jamie Manrique DO CC: Dr. Berenice Short MD; Dr. Margo Tatum DO; Dr. Navdeep Bourgeois MD ~ Signed [facility] Work Phone: Discharge summary Author Damaris Thibodeaux [facility] Note Date/Time September 11, 2024 4:20 pm [facility] Medical Records Department [address] [place] [address] Discharge Summary 09/11/24 1601 MR#: [id number] Acct: [id number] Name: PITO HENDRIX KAYLIN Rep #:[id number] : 1970 53 From: Damaris Thibodeaux DO PCP: Dr. Margo Tatum DO Status:ADM IN Location: [place] [id number] [id number] Providers Date of Admission: 09/09/24 Date of Discharge: 09/11/24 Primary Care Physician: Dr. Margo Tatum DO Reason For Visit: COPD AND HEART FAILURE EXACERBATION Diagnosis Discharge Diagnosis (1) Hypoxia: Status: Acute Code(s): R09.02 - Hypoxemia (2) Congestive heart failure (CHF): Status: Acute Code(s): I50.9 - Heart failure, unspecified Medications at Discharge Home Medications BD Ultra-Fine [place] Pen Needle 32 gauge x 5/32 (pen needle, diabetic) #100 ea 07/29/22 diphenhydramine HCl 25 mg tablet 25 mg PO Q4H PRN PRN Allergy Symptoms 08/06/22 hydrocodone-acetaminophen 5-325mg 5mg-325mg 1 tab PO Q8H PRN pain 08/06/22 naloxegol 25 mg tablet (Movantik) 25 mg PO QAM PRN pain 08/06/22 omeprazole magnesium 20 mg tablet,delayed release (Prilosec OTC) 20 mg PO DAILY reflux 08/06/22 promethazine 25 mg tablet 25 mg PO TID PRN PRN Nausea And Vomiting 08/06/22 tizanidine 4 mg tablet 4 mg PO QHS muscle spasms 08/06/22 cholecalciferol (vitamin D3) 50 mcg (2,000 unit) capsule 1,000 unit PO DAILY vitamin 03/08/23 clopidogrel 75 mg tablet (Plavix) 75 mg PO DAILY anti platelet #90 tabs 05/16/23 atorvastatin 80 mg tablet See Rx Instructions .Route .COMPLEX cholesterol #360 TABLETS 06/09/23 isosorbide mononitrate 30 mg tablet,extended release 24 hr See Rx Instructions .Route .COMPLEX heart #360 TABLETS 06/09/23 blood-glucose meter,continuous (Dexcom G7 Metal Finisher) #1 ea 10/10/23 apixaban 5 mg tablet (Eliquis) See Rx Instructions .Route .COMPLEX blood thinner#180 tabs 12/13/23 dapagliflozin propanediol 10 mg tablet (Farxiga) 10 mg PO DAILY diabetes 12/13/23 melatonin 10 mg capsule 10 mg PO HS PRN insomnia 12/13/23 sacubitril 97 mg-valsartan 103 mg tablet (Entresto) 1 tab PO BID heart #180 tabs12/13/23 carvedilol 25 mg tablet 25 mg PO BID blood pressure #180 tabs 12/29/23 spironolactone 50 mg tablet 50 mg PO DAILY #90 TABLETS 03/20/24 Dexcom G7 Sensor (blood-glucose sensor) #3 ea 04/04/24 glipizide 10 mg tablet 10 mg PO BID #180 tabs 06/13/24 insulin aspart (niacinamide)(U-100) 100 unit/mL(3 mL) subcutaneous pen (Fiasp FlexTouch U-100 Insulin) 20 unit subcut TID #15 mL 06/13/24 methimazole 10 mg tablet 10 mg PO DAILY thyroid #90 tabs 07/10/24 dulaglutide 1.5 mg/0.5 mL subcutaneous pen injector (Trulicity) 1.5 mg subcut .tuesday09/09/24 furosemide 40 mg tablet 40 mg PO DAILY #30 tabs 09/11/24 insulin glargine-yfgn 100 unit/mL (3 mL) subcutaneous pen 50 unit (0.5 mL) subcut DAILY #0 mL 09/11/24 insulin lispro 100 unit/mL subcutaneous pen (Humalog KwikPen (U-100) Insulin) 25unit (0.25 mL) subcut TIDAC #0 mL 09/11/24 prednisone 20 mg tablet 40 mg (2 x 20 mg) PO BREAKFAST #8 tabs 09/11/24 Hospital Course Procedures EKG and - (Chest x-ray/CTA chest wall) Summary of Care Provided Minutes Spent on Discharge: 40 Hospital Course: Ms. Quiros is a 53-year-old white female with a complicated past medical history presented to the emergency department at [facility] on 09/09/2024 with chief complaint of shortness of breath which started on the day of presentation. She had no fevers, productive cough or wheezing at the time of presentation and had no associated chest pain or lower extremity edema. Vital signs on presentation showed a temperature of 98.1, heart rate 102, respiratory was 24, she was tachypneic with some labored breathing, blood pressure was 134/95 and pulse ox was in the 100% on room air. CBC was unimpressive on presentation. A D-dimer was done and found to be elevated at 1.06. Chemistry was overtly unremarkable other than hyperglycemia with a blood glucose of 198. BNP was elevated at 2124. Chest x-ray showed subtle bilateral lower lobe consolidation. CTA of the chest showed patchy bilateral airspace disease with small effusions and/or atelectasis with a low attenuating lesion in the thyroid gland. Patient does have known history of Graves' disease and follows with endocrinology. COVID/flu/RSV PCR and respiratory viral panel PCR were all negative. On presentation was felt she had an acute exacerbation of heart failure with reduced ejection fraction as well as COPD. She was placed on IV diuretics, supplemental oxygen at 2 L and steroids along with pulmonary toilet. She had a recent echocardiogram and January 2024 that showed an EF of 50 to 55% without regional wall motion abnormalities or diastolic dysfunction. She does have a history of heart failure with reduced ejection fraction however has improved on goal-directed therapy. She also has an ICD. Hemoglobin A1c was obtained and found to be abnormally high at 9.4. We did make adjustments in herinsulin regimen increasing her basal insulin from 40-50 and increasing her bolusinsulin from 20-25. She is to continue her home oral agents and follow-up with her foundry engineer this previous be recommended. Blood sugars were elevated due to steroid use. She will be sent home on a quick burst of steroids for the next 4 days and then these will discontinue. She was warned that her blood sugars may be a bit out of control while she is on steroids but then should resolve after steroid use is completed. With regards to her diuresis her respiratory status improved dramatically. On admission she was taking 20 mg of Lasix daily and we have increased her dose from 20 to 40 mg at the time of discharge. We also discussed with her the importance of watching her salt and fluid intake. Prior to discharge she was slightly lightheaded and had some mildhypotension. She was given 1 L of IV fluids back and responded well to this with normalization of her blood pressure. I suspect she was mildly over diuresed with her IV diuretics. She has previously followed with cardiology Archie have asked her to follow-up with them within the next 2 to 4 weeks. She is tofollow-up with endocrinology as previously recommended and her primary care physician within the next 2 weeks. I have asked that she obtain a BMP to assessher renal function and electrolytes within the next 5 to 7 days. She is to callher primary care physician for this order as we are not able to order at discharge. Amatory pulse ox was assessed prior to discharge and patient is not requiring supplemental oxygen at rest or with exertion. Patient was discharged home in stable condition on 09/11/2024. Discharge diagnoses: Acute hypoxia-resolved Acute on chronic heart failure with reduced ejection fraction-on goal-directed therapy Acute exacerbation of COPD-resolved Transient hypotension-resolved [id number] Paroxysmal atrial fibrillation Chronic LBBB History of VTE Hypothyroidism with history of thyroid nodules-->patient is following with endocrinology> and overall plan is to follow-up with Dr. Hancock from surgery GERD History of CAD History of ischemic cardiomyopathy Essential hypertension Hyperlipidemia Obesity Physical Exam Const alert, oriented x3, no apparent distress, no limitations and well nourished; Negative for average body habitus or healthy appearing Constitutional Narrative: Middle-aged, white female, sitting up in a chair at the bedside, appears comfortable, nontoxic, pleasant, currently on the phone but hangs up but on my arrival General Appearance: cooperative, comfortable, well kempt and well developed Exam Limitations: no limitations Nutritional Appearance: obese HEENT normocephalic, head/scalp atraumatic, hearing grossly normal bilaterally and moist oral mucous membranes HEENT Narrative: Mallampati 3, no thrush Eyes conjunctivae normal Eyes Narrative: No scleral icterus Neck supple Neck Narrative: Neck is short thick, trachea midline Resp normal respiratory effort, no retractions, no use of accessory muscles and clearto auscultation bilaterally Auscultation: Negative for rales, rhonchi or wheezes Cardio regular rate, regular rhythm, S1 normal heart sound, S2 normal heart sound, no murmurs, no rub, no gallops and no clicks GI normal to inspection, nondistended, normoactive bowel sounds, soft to palpation and non-tender GI Narrative: Protuberant abdomen Extremity no clubbing, cyanosis or edema Extremity Narrative: Pedal and radial pulses are 2+ Skin skin turgor normal and no jaundice Neuro oriented x3, moves all extremities and no focal motor deficits Speech: speech normal Psych affect normal Psych Narrative: Interacts appropriately Weight / BMI Weight Weight: 96.4 kg Body Mass Index (BMI) 36.4 ABG / Lab / Microbiology Data 09/11/24 06:36 09/11/24 12:25 Laboratory: Laboratory Results - last 24 hr 09/10/24 16:22: POC Glucose 305 H 09/10/24 23:09: POC Glucose 254 H 09/11/24 06:36: WBC 9.1, RBC 4.45, Hgb 13.5, Hct 39.8, MCV 89.4, MCH 30.3, MCHC 33.9, RDW Std Deviation 42.7, RDW Coeff of Tomi 13.0, Plt Count 205, MPV 10.7, Sodium 135, Potassium 4.3, Chloride 103, Carbon Dioxide 19.3 L, Anion Gap 13, BUN 34 H, Creatinine 0.87, Estim Creat Clear Calc 83.30, Est GFR (MDRD) Non-Af 80, BUN/Creatinine Ratio 39.6 H, Glucose 344 H, Calcium 8.9 09/11/24 08:21: POC Glucose 343 H 09/11/24 12:02: POC Glucose 455 H* 09/11/24 12:25: Glucose 513 H* Microbiology: Microbiology 09/10/24 11:42 Mucosa - Nose Respiratory Panel (PCR) - Final 09/10/24 11:22 Mucosa - Nasopharyngeal SARS-CoV-2, Influenza & RSV (PCR) - Final D/C Instructions Discharge Diet: Low fat / Low cholesterol (Limit sodium to 3 to 4 g daily/limit fluid to 2 L or less daily) and 1800 Calorie Control Diet Discharge Activity: Return to Normal Activity Return to work on: 09/14/24 DC O2, CPAP, BIPAP Needs Home O2 Discharge instructions: No Meaningful Use Info Meaningful Use Meaningful Use Diagnoses (Choose all that apply): None applicable Ischemic Stroke Statin Dosing Therapy Reference: STATIN DOSE THERAPY REFERENCE: * Patients > 75 years receive moderate or high dose statin therapy. * Patients 75 years or YOUNGER should receive HIGH intensity statin dose unless contraindicated. You will be required to document reason for non-treatment if statin daily dose does not meet guidelines. HIGH DOSE STATIN THERAPY DAILY Atorvastatin > than or = to 40 mg Rosuvastatin > than or = to 20 mg Amlodipine + Atorvastatin > than or = to 2.5/40 mg Ezetimibe + Simvastatin 10/80 mg Simvastatin 80mg Discharge Plan Admission Admit Date/Time: 09/09/24 20:17 Primary Reason for Your Visit: Shortness of breath Attending Provider: Damaris Thibodeaux Primary Care Provider: Margo Tatum Consulting Providers: Francine Steele; Jamie Manrique Instructions Forms: Work Excuse Additional Instructions / Restrictions: 1. Your hemoglobin A1c which is your 3-month blood sugar average was noted to be elevated on admission. At that time it was 9.4. We did increase your insulin to 50 units of basal insulin and 25 with meals. Will also continue yourhome medications. Please follow-up with endocrinology as previously recommended. -Your blood sugars will run high for a few days while you are on your steroidburst 2. We did increase your Lasix from 20 mg daily to 40 mg daily. Please continuethis dose. You will need an outpatient basic metabolic profile to be done in the next 5 to 7 days to check your kidney function and your electrolytes. Please call your primary care physician and asked that this be done as we are not able to order this for you at discharge. 3. Please watch your sodium and fluid intake. Try to limit sodium to 3 to 4 g daily at most and limit your fluid intake to 2 L or less daily. Discharge Orders/Prescriptions Prescriptions: New furosemide 40 mg Tablet 40 mg PO DAILY Qty: 30 1RF insulin glargine-yfgn 100 unit/mL (3 mL) Insulin Pen 50 unit subcut DAILY Qty: 0 0RF insulin lispro [Humalog KwikPen Insulin] 100 unit/mL Insulin Pen 25 unit subcut TIDAC Qty: 0 0RF prednisone 20 mg Tablet 40 mg PO BREAKFAST Qty: 8 0RF Continued dapagliflozin propanediol [Farxiga] 10 mg tablet 10 mg PO DAILY melatonin 10 mg capsule 10 mg PO HS PRN (Reason: insomnia) sacubitril-valsartan [Entresto] 97-103 mg tablet 1 tab PO BID Qty: 180 3RF Eliquis 5 mg tablet See Rx Instructions .ROUTE .COMPLEX Qty: 180 3RF Dose Instruction: take 1 tablet by mouth twice a day Patient Comments: since 08/25 Rx Instructions: take 1 tablet by mouth twice a day (DME) Dexcom G7 Sensor Device See Rx Instructions .Route Qty: 3 5RF Rx Instructions: 1 sensor q 14 days glipizide 10 mg tablet 10 mg PO BID Qty: 180 1RF tizanidine 4 mg tablet 4 mg PO QHS Patient Comments: take 1 tablet by mouth every evening diphenhydramine HCl 25 mg Tablet 25 mg PO Q4H PRN PRN (Reason: Allergy Symptoms) promethazine 25 mg tablet 25 mg PO TID PRN PRN (Reason: Nausea And Vomiting) Patient Comments: take 1 tablet by mouth three times a day if needed for nausea and vomiting hydrocodone-acetaminophen 5-325 mg tablet 1 tab PO Q8H PRN (Reason: pain) omeprazole magnesium [Prilosec OTC] 20 mg tablet,delayed release (DR/EC) 20 mg PO DAILY Movantik 25 mg tablet 25 mg PO QAM PRN (Reason: pain) Rx Instructions: must be taken on empty stomach; no food 1 hr after or 2-3 hrs before dose Trulicity 1.5 mg/0.5 mL pen injector 1.5 mg subcut .tuesday (DME) pen needle, diabetic [BD Ultra-Fine [place] Pen Needle] 32 gauge x 5/32 needle See Rx Instructions .Route Qty: 100 5RF Rx Instructions: 4x/day cholecalciferol (vitamin D3) 50 mcg (2,000 unit) capsule 1,000 unit PO DAILY clopidogrel [Plavix] 75 mg tablet 75 mg PO DAILY Qty: 90 3RF atorvastatin 80 mg tablet See Rx Instructions .ROUTE .COMPLEX Qty: 360 0RF Dose Instruction: take 1 tablet by mouth at bedtime Rx Instructions: take 1 tablet by mouth at bedtime isosorbide mononitrate 30 mg tablet extended release 24 hr See Rx Instructions .ROUTE .COMPLEX Qty: 360 0RF Dose Instruction: take 1 tablet by mouth once daily Rx Instructions: take 1 tablet by mouth once daily (DME) Dexcom G7 Metal Finisher Misc See Rx Instructions .Route Qty: 1 0RF Rx Instructions: As directed carvedilol 25 mg tablet 25 mg PO BID Qty: 180 3RF Rx Instructions: must administer with a meal/food spironolactone 50 mg tablet 50 mg PO DAILY Qty: 90 3RF Fiasp FlexTouch U-100 Insulin 100 unit/mL (3 mL) insulin pen 20 unit subcut TID Qty: 15 5RF methimazole 10 mg tablet 10 mg PO DAILY Qty: 90 1RF Discontinued insulin glargine [Lantus Solostar U-100 Insulin] 100 unit/mL (3 mL) insulin pen 40 unit subcut DAILY Qty: 36 1RF furosemide [Lasix] 20 mg tablet 20 mg PO DAILY 30 Days Qty: 30 2RF insulin lispro [Humalog KwikPen Insulin] 100 unit/mL insulin pen 20 unit subcut TID Qty: 15 2RF Referrals / Follow Up: Margo Tatum DO [Primary Care Provider] - Within 2 Weeks (Please call for a basicmetabolic profile to be done within the next 5 to 7 days in addition to their follow-up appointment) Bryan Mitchell NP, PALS SPECIALIST-C [Med Staff - Adv Practice Prof] - Within 1 Month (Please call and get an appointment to be seen by cardiology within the next 2 to 4 weeks) Disposition Disposition (needs filled in before D/C Order can be placed): Home, Self Care Charges/Coding Visit Charges Inpatient E&M: 17666 Disch Hosp >30min 09/11/24 1620 <Electronically signed by Damaris Thibodeaux DO> Cosigner Signature (if applicable): CC: CARMEN Tom; ROBINSON Mitchell; Dr. Damaris Thibodeaux DO; Dr. Margo Tatum DO~ Signed [facility] Work Phone: Evaluation note* Diagnosis Onset Date Resolution Status Atherosclerotic heart diseas e of [place] coronary artery without angina pectoris acute History of coronary artery stent placement acute Sleep apnea acute Type 2 diabetes mellitus acu te Benign hypertension chronic HFrEF (heart failure with reduced ejection fraction) chronic Hyperlipidemia chronic Left bundle branch block (LBBB) chronic Non-ischemic cardiomyopathy chronic Obesity chronic Non-ST elevation IA (NSTEMI) resolved Nonobstructive atherosclerosis of coronary artery resolved Atherosclerotic heart diseas e of [place] coronary artery without angina pectoris acute Cardiomyopathy, ischemic acu te History of coronary artery stent placement acute Type 2 diabetes mellitus acu te Benign hypertension chronic HFrEF (heart failure with reduced ejection fraction) chronic Hyperlipidemia chronic Obesity chronic Non-ST elevation IA (NSTEMI) resolved Atherosclerotic heart diseas e of [place] coronary artery without angina pectoris acute Benign hypertension chronic Hyperlipidemia chronic Non-ischemic cardiomyopathy chronic Acute dehydration resolved Acute kidney injury resolved Bradycardia resolved Chest pain resolved Hyponatremia resolved Near syncope resolved Acute respiratory failure ac [place] Congestive heart failure acu te Difficult intubation acute Type 2 diabetes mellitus acu te Left bundle branch block (LBBB) chronic [facility] Work Phone: Evaluation note* Diagnosis Onset Date Resolution Status Atherosclerotic heart diseas e of [place] coronary artery without angina pectoris acute History of coronary artery stent placement acute Sleep apnea acute Type 2 diabetes mellitus acu te Benign hypertension chronic HFrEF (heart failure with reduced ejection fraction) chronic Hyperlipidemia chronic Left bundle branch block (LBBB) chronic Non-ischemic cardiomyopathy chronic Obesity chronic Non-ST elevation IA (NSTEMI) resolved Nonobstructive atherosclerosis of coronary artery resolved Atherosclerotic heart diseas e of [place] coronary artery without angina pectoris acute Cardiomyopathy, ischemic acu te History of coronary artery stent placement acute Type 2 diabetes mellitus acu te Benign hypertension chronic HFrEF (heart failure with reduced ejection fraction) chronic Hyperlipidemia chronic Obesity chronic Non-ST elevation IA (NSTEMI) resolved Atherosclerotic heart diseas e of [place] coronary artery without angina pectoris acute Benign hypertension chronic Hyperlipidemia chronic Non-ischemic cardiomyopathy chronic Acute dehydration resolved Acute kidney injury resolved Bradycardia resolved Chest pain resolved Hyponatremia resolved Near syncope resolved Acute respiratory failure ac [place] Atherosclerotic heart diseas e of [place] coronary artery without angina pectoris acute Cardiomyopathy, ischemic acu te Congestive heart failure acu te Difficult intubation acute History of coronary artery stent placement acute Non-ST elevation (NSTEMI) myocardial infarction acute Type 2 diabetes mellitus acu te Benign hypertension chronic HFrEF (heart failure with reduced ejection fraction) chronic Hyperlipidemia chronic Left bundle branch block (LBBB) chronic Non-ischemic cardiomyopathy [facility] Work Phone: Evaluation note* Diagnosis Onset Date Resolution Status Atherosclerotic heart diseas e of [place] coronary artery without angina pectoris acute Cardiomyopathy, ischemic acu te History of coronary artery stent placement acute Type 2 diabetes mellitus acu te Benign hypertension chronic HFrEF (heart failure with reduced ejection fraction) chronic Hyperlipidemia chronic Obesity chronic Non-ST elevation IA (NSTEMI) resolved Atherosclerotic heart diseas e of [place] coronary artery without angina pectoris acute Benign hypertension chronic Hyperlipidemia chronic Non-ischemic cardiomyopathy chronic Acute dehydration resolved Acute kidney injury resolved Bradycardia resolved Chest pain resolved Hyponatremia resolved Near syncope resolved Acute respiratory failure [place] Atherosclerotic heart diseas e of [place] coronary artery without angina pectoris acute Cardiomyopathy, ischemic acu te Congestive heart failure acu te Difficult intubation acute History of coronary artery stent placement acute Non-ST elevation (NSTEMI) myocardial infarction acute Type 2 diabetes mellitus acu te Benign hypertension chronic HFrEF (heart failure with reduced ejection fraction) chronic Hyperlipidemia chronic Left bundle branch block (LBBB) chronic Non-ischemic cardiomyopathy [facility] Work Phone: Evaluation note* Diagnosis Onset Date Resolution Status Acute dehydration resolved Acute kidney injury resolved Bradycardia resolved Chest pain resolved Hyponatremia resolved Near syncope resolved Atherosclerotic heart diseas e of [place] coronary artery without angina pectoris acute Cardiomyopathy, ischemic acu te History of coronary artery stent placement May 192020 acute Type 2 diabetes mellitus acu te Benign hypertension chronic HFrEF (heart failure with re duced ejection fraction) chronic Hyperlipidemia chronic Left bundle branch block (LBBB) chronic Acute respiratory failure re solved Congestive heart failure res olved Non-ST elevation (NSTEMI) my ocardial infarction resolved Cardiomyopathy, ischemic acu te History of coronary artery stent placement May 192020 acute Benign hypertension chronic HFrEF (heart failure with re duced ejection fraction) chronic Left bundle branch block (LBBB) [facility] Work Phone: Evaluation note* Diagnosis Other cardiomyopathy [facility] Left arm pain- Primary Pain in limb [facility] Diagnosis Onset Date Resolution Status Cardiomyopathy, ischemic acu te Paroxysmal atrial fibrillation acute Presence of cardiac resynchr onization therapy defibrillator (CRTT-D) acute HFrEF (heart failure with re duced ejection fraction) chronic Left bundle branch block (LBBB) chronic Cardiomyopathy, ischemic acu te Presence of cardiac resynchr onization therapy defibrillator (CRTT-D) acute HFrEF (heart failure with re duced ejection fraction) chronic Left bundle branch block (LBBB) chronic Cardiomyopathy, ischemic acu te Palpitations acute Presence of cardiac resynchr onization therapy defibrillator (CRTT-D) acute Benign hypertension chronic History of coronary artery stent placement May 192020 chronic Hyperlipidemia chronic Left bundle branch block (LBBB) chronic Hyperthyroidism chronic Obesity chronic Type 2 diabetes mellitus chr onic Cardiomyopathy, ischemic acu te Palpitations acute Presence of cardiac resynchr onization therapy defibrillator (CRTT-D) acute Benign hypertension chronic History of coronary artery stent placement May 192020 chronic Hyperlipidemia chronic Left bundle branch block (LBBB) [facility] Work Phone: Evaluation note* Diagnosis Onset Date Resolution Status Hyperthyroidism chronic Obesity chronic Type 2 diabetes mellitus chr onic Cardiomyopathy, ischemic acu te Dyspnea on exertion acute Palpitations acute Presence of cardiac resynchr onization therapy defibrillator (CRTT-D) acute Benign hypertension chronic History of coronary artery stent placement May 192020 chronic Hyperlipidemia chronic Left bundle branch block (LBBB) chronic Benign hypertension chronic Hyperthyroidism chronic Obesity chronic Type 2 diabetes mellitus chr onic [facility] Work Phone: Evaluation note* Diagnosis Onset Date Resolution Status Benign hypertension chronic Hyperthyroidism chronic Obesity chronic Type 2 diabetes mellitus chr on Multiple thyroid nodules acu te [facility] Work Phone: Evaluation note* Diagnosis Onset Date Resolution Status Benign hypertension chronic Hyperthyroidism chronic Obesity chronic Type 2 diabetes mellitus chr onic Multiple thyroid nodules acu te Benign hypertension chronic Hyperthyroidism chronic Obesity chronic Type 2 diabetes mellitus [facility] Work Phone: Evaluation note* Diagnosis Onset Date Resolution Status Benign hypertension chronic Obesity chronic Type 2 diabetes mellitus chr onic Multiple thyroid nodules acu te Benign hypertension chronic Obesity chronic Type 2 diabetes mellitus chr onic Acute urinary retention acut e Anticoagulated acute Hematuria acute [facility] Work Phone: Evaluation note* Diagnosis Onset Date Resolution Status Benign hypertension chronic Obesity chronic Type 2 diabetes mellitus chr onic Multiple thyroid nodules acu te Benign hypertension chronic Obesity chronic Type 2 diabetes mellitus chr onic Anticoagulated acute Acute urinary retention reso lved Hematuria resolved Anticoagulant long-term use acute Antiplatelet or antithrombotic long-term use acute Cardiomyopathy, ischemic acu te Gross hematuria acute Benign hypertension chronic History of coronary artery stent placement May 192020 chronic Obesity chronic Type 2 diabetes mellitus [facility] Work Phone: Evaluation note* Diagnosis Onset Date Resolution Status Multiple thyroid nodules acu te Benign hypertension chronic Obesity chronic Type 2 diabetes mellitus chr onic Anticoagulated acute Acute urinary retention reso lved Hematuria resolved Anticoagulant long-term use acute Anticoagulated acute Antiplatelet or antithrombotic long-term use acute Cardiomyopathy, ischemic acu te Gross hematuria acute Urinary tract infection acut e Benign hypertension chronic History of coronary artery stent placement May 192020 chronic Obesity chronic Type 2 diabetes mellitus [facility] Work Phone: History and physical note Author Perlita Gómez [facility] August 26, 2023 11:03pm Note Date/Time August 26, 2023 10: 40pm [facility] Medical Records Department [address] [place] [address] H&P Exam - Hospitalist 08/26/232235 MR#: [id number] Acct: [id number] Name: PITO HENDRIX Rep #:[id number] : 1970 52 From: Perlita Gómez MD PCP: Dr. Margo Tatum, DO Status:ADM IN Location: [facility] – [place] VX915-5 [facility] - General General Date of Admission: 08/26/23 Date of Service: 08/26/23 Chief Complaint: Hematuria HPI Narrative The patient is a 52 y/o F w/ PMHx: Obesity, CAD s/p PCI, Hyperthyroidism, PAF, HTN, HLD, HFrEF/Ischemic cardiomyopathy, Chronic low back pain status post insertion nerve stimulator, COPD, Diabetes mellitus type II, Former tobacco use who presents to the [facility] ED on 08/26/23 with history of significant hematuria throughout the day with notable blood clots with onset of worsening urinary retention noting difficulty urinating secondary to having to push out the clots with no recent dysuria or frequency prior to this onset but she has had bladder infections in the past however this is never occurred and given she was anticoagulated because of concern prompting eventual ED evaluation. She notes discomfort now 08/13 but attributes it to the gaspar and noted prior she had no pain but pressure in the suprapubic region. Workup in the ED included T97.1, heart rate 110, BP 141/83, respiratory rate 22, 100% on room air, CBC with WBC 5.1, hemoglobin 12.4, platelet 222 without marked shift, BMP with potassium 3.1,chloride 111, BUN/creatinine 20/0.86, glucose 179, urinalysis with protein 500, glucose 250, negative ketone, occult blood 150, negative nitrite, urine RBCs greater than 100 with 2+ urine bacteria, urine culture pending per ED, CT abdomen and pelvis with diffuse bladder wall thickening and pericecal fat stranding possibly field representative/health education of cystitis with an indwelling Gaspar catheter with possibly asymmetric thickening of the right posterior lateral bladder wall,nonobstructive calculi in the lower pole of the right kidney unchanged, status post previous cholecystectomy, appendectomy, hysterectomy evident. In the ED patient ministered morphine 4 mg IV x 1. ED discussed case with Dr. Campoverde who will evaluate patient and possibly perform cystoscopy. In the ED CBI started. [facility] Medical History (Updated 08/26/23 @ 22:[address] Perlita Gómez MD) Atherosclerotic heart disease of [place] coronary artery without angina pectoris Atrial fibrillation Benign hypertension Cardiomyopathy, ischemic Chronic low back pain Chronic nausea COPD (chronic obstructive pulmonary disease) Coronary artery disease COVID-19 virus infection Diabetes Difficult intubation Former smoker HFrEF (heart failure with reduced ejection fraction) Hirsutism History of non-ST elevation myocardial infarction (NSTEMI) (09/08/21) Hyperglycemia due to type 2 diabetes mellitus Hyperlipidemia Hypertension Hyperthyroidism Irregular heart beat Kidney stones Left bundle branch block (LBBB) Myocardial infarct Non-ischemic cardiomyopathy Non-ST elevation (NSTEMI) myocardial infarction Obesity Paroxysmal atrial fibrillation Presence of cardiac 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 therapy defibrillator (CRTT-D) Seizures Syncope Thyroid nodule Type 2 diabetes mellitus Vomiting Home Medications hydroxyzine HCl 25 mg tablet 25 - 50 mg PO QHS PRN anxiety 02/24/22 [History Last Taken Unknown] melatonin 10 mg tablet 10 mg PO HS PRN Insomnia 02/24/22 [History Last Taken Unknown] BD Ultra-Fine [place] Pen Needle 32 gauge x 5/32 (pen needle, diabetic) #100 ea 07/29/22 [Rx Last Taken Unknown] diphenhydramine HCl 25 mg tablet 25 mg PO Q4H PRN PRN Allergy Symptoms 08/06/22 [History Last Taken Unknown] hydrocodone-acetaminophen 5-325mg 5mg-325mg 1 tab PO DAILY Check with primary doctor 08/06/22 [History Last Taken 08/06/22 10:00] naloxegol 25 mg tablet (Movantik) 25 mg PO QAM Check with primary doctor 08/06/22 [History Last Taken Unknown] omeprazole magnesium 20 mg tablet,delayed release (Prilosec OTC) 20 mg PO DAILY Check with primary doctor 08/06/22 [History Last Taken Unknown] promethazine 25 mg tablet 25 mg PO TID PRN PRN Nausea And Vomiting 08/06/22 [History Last Taken Unknown] tizanidine 4 mg tablet 4 mg PO QHS 08/06/22 [History Last Taken 08/05/22] dapagliflozin propanediol 10 mg tablet (Farxiga) 10 mg PO DAILY 10/20/22 [History Last Taken Unknown] ibuprofen 200 mg tablet 200 mg PO Q6H PRN fever or pain 10/20/22 [History Last Taken Unknown] insulin glargine 100 unit/mL (3 mL) subcutaneous pen (Lantus Solostar U-100 Insulin) 23 unit subcut DAILY Check with primary doctor 10/20/22 [History Last Taken Unknown] insulin lispro 100 unit/mL subcutaneous pen (Humalog KwikPen (U-100) Insulin) 12unit subcut TIDCM Check with primary doctor 10/20/22 [History Last Taken Unknown] sacubitril 97 mg-valsartan 103 mg tablet (Entresto) 1 tab PO BID 10/20/22 [History Last Taken Unknown] flash glucose sensor (FreeStyle Sanam 2 Sensor kit) #2 ea 03/02/23 [Rx Last Taken Unknown] cholecalciferol (vitamin D3) 50 mcg (2,000 unit) capsule 1,000 unit PO DAILY 03/08/23 [History Last Taken Unknown] spironolactone 50 mg tablet 50 mg PO DAILY #90 tabs 03/08/23 [Rx Last Taken Unknown] carvedilol 25 mg tablet 25 mg PO BID Check with primary doctor #180 tabs 03/10/23 [Rx Last Taken Unknown] glipizide 10 mg tablet, extended release 24 hr 10 mg PO BID diabetes #180 tabs 03/14/23 [Rx Last Taken Unknown] methimazole 10 mg tablet 10 mg PO DAILY #90 tabs 03/14/23 [Rx Last Taken Unknown] clopidogrel 75 mg tablet (Plavix) 75 mg PO DAILY #90 tabs 05/16/23 [Rx Last Taken Unknown] apixaban 5 mg tablet (Eliquis) See Rx Instructions .Route .COMPLEX #180 tabs 05/31/23 [Rx Last Taken Unknown] atorvastatin 80 mg tablet See Rx Instructions .Route .COMPLEX #360 TABLETS 06/09/23 [Rx Last Taken Unknown] isosorbide mononitrate 30 mg tablet,extended release 24 hr See Rx Instructions .Route .COMPLEX #360 TABLETS 06/09/23 [Rx Last Taken Unknown] furosemide 40 mg tablet See Rx Instructions .Route .COMPLEX #90 TABLETS 07/04/23[Rx Last Taken Unknown] dulaglutide 1.5 mg/0.5 mL subcutaneous pen injector (Trulicity) 1.5 mg (0.5 mL) subcut QWEEK #2 mL 08/11/23 [Rx Last Taken Unknown] flash glucose scanning reader (FreeStyle Sanam 2 [place]) #1 ea 08/11/23 [Rx Last Taken Unknown] Allergy/AdvReac Type Severity Reaction Status Date / Time amoxicillin trihydrate AdvReac Vomiting Verified 08/26/23 18:21 [From Augmentin] potassium clavulanate AdvReac Vomiting Verified 08/26/23 18:21 [From Augmentin] Family History Father Myocardial infarction Cancer prostate, leukemia Agent orange exposure Diabetes Sister Diabetes COPD (chronic obstructive pulmonary disease) Mother CVA (cerebral vascular accident) Hypertension Surgical History History of appendectomy History of back surgery History of cholecystectomy (1991) History of cholecystectomy History of coronary artery stent placement (05/19/21) History of hysterectomy History of laparoscopy History of left heart catheterization (09/14/21) History of tonsillectomy Status post insertion of nerve stimulator Social History (Updated 08/26/23 @ 23:[address] Perlita Gómez MD) household members: significant other Smoking Status: Former smoker how long ago did patient quit smoking: Quit 1990, smoke 2 ppd since teen until quit. alcohol intake: current alcohol intake frequency: holidays/special occasions only substance use type: does not use caffeine: Yes ROS ROS Narrative Admission Review of Systems: CONSTITUTIONAL: No weight loss, fever, chills, + weakness or fatigue. HEENT: Eyes: No visual loss, blurred vision, double vision or yellow sclerae. Ears, Nose, Throat: No hearing loss, sneezing, congestion, runny nose or sore throat. SKIN: No rash or itching, lesions, wounds. CARDIOVASCULAR: No chest pain, chest pressure or chest discomfort, palpitations,edema, orthopnea, syncopal events. RESPIRATORY: No shortness of breath, cough or sputum, wheezing, hemoptysis. GASTROINTESTINAL: No anorexia, nausea, vomiting or diarrhea, abdominal pain, melena, BRBPR. GENITOURINARY: + Suprapubic pressure and hematuria. No dysuria or urgency reported. NEUROLOGICAL: No headache, dizziness, syncope, paralysis, ataxia, numbness or tingling in the extremities, focal weakness, change in bowel or bladder control,seizure. MUSCULOSKELETAL: + muscle, back pain, joint pain or stiffness. HEMATOLOGIC: + anemia, easy bleeding/bruising. LYMPHATICS: No enlarged nodes. No history of splenectomy. PSYCHIATRIC: No history of depression or anxiety. ENDOCRINOLOGIC: No reports of sweating, cold or heat intolerance. No polyuria orpolydipsia. ALLERGIES: No history of asthma, hives, eczema or rhinitis. Vital Signs Vital Signs Vital Signs: 08/26/23 18:21 08/26/23 21:09 Temperature 97.1 F L Temperature Source Temporal Pulse Rate 110 H 106 H Respiratory Rate 22 H 16 Blood Pressure 141/83 H 140/60 H Blood Pressure Mean 102 86 Pulse Ox 100 Oxygen Delivery Method Room Air Weight Weight: 207 lb 6.4 oz Body Mass Index (BMI) 35.6 Physical Exam Narrative Physical Examination: General: Awake, alert, oriented x 3 and cooperative, seated upright in the ED bed, mildly uncomfortable, reports discomfort 3 out of 10 in severity secondary to Gaspar and reports prior to this she only had suprapubic pressure. Skin: Normal color, normal turgor, no icterus, no cyanosis. HEENT: AT/NC, EOMI, PERRLA, mildly dry MM, no carotid bruits or JVD noted. Lungs: Mildly diminished, greater bases, appropriate effort although mildly increased respiratory rate but no distress noted, no rales, ronchi or wheezing. Heart: Currently regular rate and rhythm; no gallop, rub audible. Abdomen: Soft, obese, mild discomfort with palpation of the suprapubic region otherwise abdomen NTTP, ND, hyperactive BS, no appreciated HSM. Extremities: No cyanosis, clubbing, or edema. Neurological: Patient awake, alert, oriented as noted, cognitive function intact; pupils equally reactive to light and accommodation, cranial nerves II-XII grossly normal, moving all 4 extremities, no focal deficits, strength mildlyto moderately globally decreased secondary to acute complaints as well as CBI system in place. Psychiatric: Affect appears mildly uncomfortable, fatigued, no acute evidence ofdepressive or anxiety feelings. Results Lab / Micro Data 08/26/23 19:10 08/26/23 19:10 Labs: Laboratory Results - last 24 hr 08/26/23 19:10: WBC 5.1, RBC 4.05 L, Hgb 12.4, Hct 38.2, MCV 94.3, MCH 30.6, MCHC 32.5, RDW Std Deviation 46.1 H, RDW Coeff of Tomi 13.6, Plt Count 222, MPV 9.9, Immature Gran % (Auto) 0.400, Neut % (Auto) 66.1, Lymph % (Auto) 25.5, [place]% (Auto) 6.6, Eos % (Auto) 1.2, Baso % (Auto) 0.2, Absolute Neuts (auto) 3.4, Absolute Lymphs (auto) 1.31, Nucleated RBC % 0, Sodium 141, Potassium 3.1 L, Chloride 111 H, Carbon Dioxide 23.0, Anion Gap 7, BUN 20 H, Creatinine 0.86, Estim Creat Clear Calc 84.14, Est GFR (MDRD) Af Amer 88, Est GFR (MDRD) Non-Af 73, BUN/Creatinine Ratio 23.2 H, Glucose 179 H, Calcium 9.4 08/26/23 20:40: Urine Color Red, Urine Clarity Turbid, Urine pH 7.0, Ur SpecificGravity 1.010, Urine Protein 500 H, Urine Glucose (UA) 250 H, Urine Ketones Negative, Urine Occult Blood 150 H, Urine Nitrite Negative, Urine Bilirubin Negative, Urine Urobilinogen Normal, Ur Leukocyte Esterase Negative, Urine RBC >100 SEEN, Urine WBC 0 SEEN, Ur Squamous Epith Cells 0 SEEN, Urine Bacteria 2+, Urine Mucus 0 SEEN Imaging Radiology Impression Abdomen/Pelvis CT 08/26/23 19:46 IMPRESSION: * There is diffuse bladder wall thickening and pericecal fat stranding which may represent cystitis, with indwelling Gaspar catheter. There may be asymmetric thickening of the right posterolateral bladder wall. Consider cystoscopy for further evaluation and to exclude underlying malignancy. * Nonobstructive calculi in the lower pole of the right kidney are unchanged. * Unchanged nonobstructive calculi, lower pole right kidney. * Cholecystectomy, appendectomy and hysterectomy. Electronically Signed: Dean Lovell MD at 21:47 EDT Reading Location ID and State: [address] [place] [address] Tel , Service support , Assessment & Plan Assessment/Plan (1) Acute urinary retention: (2) Hematuria: PLAN: Plan The patient is a 52 y/o F w/ PMHx: Obesity, CAD s/p PCI, Hyperthyroidism, PAF, HTN, HLD, HFrEF/Ischemic cardiomyopathy, Chronic low back pain status post insertion nerve stimulator, COPD, Diabetes mellitus type II, Former tobacco use who presents to the [facility] ED on 08/26/23 with history of significant hematuria throughout the day with notable blood clots with onset of worsening urinary retention noting difficulty urinating secondary to having to push out the clots with no recent dysuria or frequency prior to this onset but she has had bladder infections in the past however this is never occurred and given she was anticoagulated because of concern prompting eventual ED evaluation. #1. Acute urinary retention with possible acute complicated urinary tract infection with acute hematuria with evidence of mild acute blood loss anemia: Admission hemoglobin 12.4, most recent prior to this 08/02/2023 hemoglobin 13 although has previously vacillated thus currently blood loss is not severe, given retention Gaspar catheter placed in the ED, given 2+ urine bacteria noted although no obvious evidence of UTI to be cautious in the interim will place on IV Rocephin therapy, urology consulted and evaluation pending, will maintain n.p.o. status after midnight for suspected a.m. cystoscopy needs, will maintain ED initiated continuous bladder irrigation, will trend CBC. #2. Hypokalemia: Admission K+ 3.1, magnesium level requested, supplementation given, repeat level in AM. #3. CAD: Status post previous PCI, given acute presentation with hematuria withprevious intervention will cautiously continue Plavix if urology amenable however holding apixaban regimen, continue Coreg, Entresto, statin therapy. #4. HFrEF/ischemic cardiomyopathy: Status post previous CRTT-D [employer], most recently assessed 07/25/2023, will cautiously hydrate given presentation, will continue patient home Plavix cautiously if amenable per urology, holding Eliquis as noted, continue Coreg, Entresto, spironolactone, Lasix regimen given appropriate renal function and BP, low threshold to hold however if status changes. Most recent echocardiogram noted 12/16/2022 with normal LV size, LVEF 45%, stage I diastolic dysfunction. #5. Chronic COPD: Per current list not on chronic regimen, if necessary may addATC budesonide otherwise will maintain PRN albuterol, HOB, IS parameters. #6. Hypertension: Continue home regimen including spironolactone, Entresto, isosorbide, Lasix, Coreg given appropriate renal function at this time and no evidence of hypotension, PRN hydralazine. #7. Hyperlipidemia: We will continue patient on statin therapy. #8. PAF: We will temporarily hold patient home apixaban especially given acute presentation with hematuria, will continue patient home Coreg regimen. #9. Diabetes mellitus type II: Hold oral home regimen, continue home insulin regimen, ADA diet, accu checks w/ ISS. #10. Obesity: Weight loss and lifestyle changes encouraged. #11. Former tobacco use: Encourage continued tobacco cessation. #12. GERD: We will continue patient on PPI. #13. Hyperthyroidism: We will continue patient home methimazole regimen. #14. DVT prophylaxis: Holding patient home Eliquis regimen given presentation as noted #1. #15. CODE status: Patient BOB is her significant other Dani who is present as well as Virgen New her sister and [place] her 2 sons and living richard currently in place. Discussed CODE status at length including difference between FULL code, DNR-CCA and DNR-CC status. Following discussions about the differences in these status, requested Full Code status. Advanced Care Planning Face to Face Time: 16 minutes. Charges/Coding Visit Charges Inpatient E&M: 45768 Init Hosp L3 Procedures Hospitalists Procedures: 83933 Advncd Care Plan 30 Min 08/26/23 2303 <Electronically signed by Perlita Gómez MD> Cosigner Signature (if applicable): CC: Dr. Perlita Gómez MD; Dr. Margo Tatum, DO~ Signed [facility] Work Phone: History and physical note Author Navdeepelver Bourgeois [facility] September 06, 2023 5:32pm Note Date/Time September 06, 2023 5:32 pm [facility] Medical Records Department [address] [place] [address] H&P Exam - Hospitalist 09/06/23 1637 MR#: [id number] Acct: [id number] Name: PITO HENDRIX Rep #:[id number] : 1970 52 From: Navdeep Wade PCP: Dr. Margo Tatum, Status:REG ER Location: ED HPI - General General Date of Admission: 09/06/23 Date of Service: 09/06/23 Chief Complaint: Sudden onset of hematuria today in the morning. HPI Narrative PITO HENDRIX, is a 52 F who was recently admitted between 08/25 to 08/28 for hematuria with urine retention came back with similar problem sudden onset of hematuria in the morning today. In the triage note it is wrongly mentioned vaginal bleeding but patient had hysterectomy in 2003 and denies vaginal bleeding. Patient is stated that she had stefani dark red blood in the morning today. She denies burning pain but he states he feels pressure over suprapubic region. Increases with movement of the catheter. Patient is states he has beenpassing blood clots and probably pain increases with passing clots. Patient wasseen by urologist Dr. Campoverde but she does not want to see him and requested a different urologist therefore Dr. Short consulted. Patient has triple-lumen Gaspar catheter. Patient is on Plavix and Eliquis. UA shows 50-100 cells but no WBC. Negative nitrite and leukocyte esterase. H&H10.2/31% which is further [facility] Medical History Atherosclerotic heart disease of [place] coronary artery without angina pectoris Atrial fibrillation Benign hypertension Cardiomyopathy, ischemic Chronic low back pain Chronic nausea COPD (chronic obstructive pulmonary disease) Coronary artery disease COVID-19 virus infection Diabetes Difficult intubation Former smoker HFrEF (heart failure with reduced ejection fraction) Hirsutism History of non-ST elevation myocardial infarction (NSTEMI) (09/08/21) Hyperglycemia due to type 2 diabetes mellitus Hyperlipidemia Hypertension Hyperthyroidism Irregular heart beat Kidney stones Left bundle branch block (LBBB) Myocardial infarct Non-ischemic cardiomyopathy Non-ST elevation (NSTEMI) myocardial infarction Obesity Paroxysmal atrial fibrillation Presence of cardiac 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 therapy defibrillator (CRTT-D) Seizures Syncope Thyroid nodule Type 2 diabetes mellitus Vomiting Home Medications BD Ultra-Fine [place] Pen Needle 32 gauge x 5/32 (pen needle, diabetic) #100 ea 07/29/22 [Rx Last Taken Unknown] diphenhydramine HCl 25 mg tablet 25 mg PO Q4H PRN PRN Allergy Symptoms 08/06/22 [History Last Taken Unknown] hydrocodone-acetaminophen 5-325mg 5mg-325mg 1 tab PO Q8H PRN Check with primary doctor 08/06/22 [History Last Taken 08/06/22 10:00] naloxegol 25 mg tablet (Movantik) 25 mg PO QAM PRN Check with primary doctor 08/06/22 [History Last Taken Unknown] omeprazole magnesium 20 mg tablet,delayed release (Prilosec OTC) 20 mg PO DAILY Check with primary doctor 08/06/22 [History Last Taken Unknown] promethazine 25 mg tablet 25 mg PO TID PRN PRN Nausea And Vomiting 08/06/22 [History Last Taken Unknown] tizanidine 4 mg tablet 4 mg PO QHS 08/06/22 [History Last Taken 08/05/22] dapagliflozin propanediol 10 mg tablet (Farxiga) 10 mg PO DAILY 10/20/22 [History Last Taken Unknown] ibuprofen 200 mg tablet 200 mg PO Q6H PRN fever or pain 10/20/22 [History Last Taken Unknown] insulin glargine 100 unit/mL (3 mL) subcutaneous pen (Lantus Solostar U-100 Insulin) 30 unit subcut DAILY Check with primary doctor 10/20/22 [History Last Taken Unknown] insulin lispro 100 unit/mL subcutaneous pen (Humalog KwikPen (U-100) Insulin) 14unit subcut TIDCM Check with primary doctor 10/20/22 [History Last Taken Unknown] sacubitril 97 mg-valsartan 103 mg tablet (Entresto) 1 tab PO BID 10/20/22 [History Last Taken Unknown] flash glucose sensor (FreeStyle Sanam 2 Sensor kit) #2 ea 03/02/23 [Rx Last Taken Unknown] cholecalciferol (vitamin D3) 50 mcg (2,000 unit) capsule 1,000 unit PO DAILY 03/08/23 [History Last Taken Unknown] spironolactone 50 mg tablet 50 mg PO DAILY #90 tabs 03/08/23 [Rx Last Taken Unknown] carvedilol 25 mg tablet 25 mg PO BID Check with primary doctor #180 tabs 03/10/23 [Rx Last Taken Unknown] glipizide 10 mg tablet, extended release 24 hr 10 mg PO BID diabetes #180 tabs 03/14/23 [Rx Last Taken Unknown] methimazole 10 mg tablet 10 mg PO DAILY #90 tabs 03/14/23 [Rx Last Taken Unknown] clopidogrel 75 mg tablet (Plavix) 75 mg PO DAILY #90 tabs 05/16/23 [Rx Last Taken Unknown] apixaban 5 mg tablet (Eliquis) See Rx Instructions .Route .COMPLEX #180 tabs 05/31/23 [Rx Last Taken Unknown] atorvastatin 80 mg tablet See Rx Instructions .Route .COMPLEX #360 TABLETS 06/09/23 [Rx Last Taken Unknown] isosorbide mononitrate 30 mg tablet,extended release 24 hr See Rx Instructions .Route .COMPLEX #360 TABLETS 06/09/23 [Rx Last Taken Unknown] furosemide 40 mg tablet See Rx Instructions .Route .COMPLEX #90 TABLETS 07/04/23[Rx Last Taken Unknown] dulaglutide 1.5 mg/0.5 mL subcutaneous pen injector (Trulicity) 1.5 mg (0.5 mL) subcut QWEEK #2 mL 08/11/23 [Rx Last Taken Unknown] flash glucose scanning reader (Typeform Sanam 2 [place]) #1 ea 08/11/23 [Rx Last Taken Unknown] Allergy/AdvReac Type Severity Reaction Status Date / Time amoxicillin trihydrate AdvReac Vomiting Verified 09/06/23 11:43 [From Augmentin] potassium clavulanate AdvReac Vomiting Verified 09/06/23 11:43 [From Augmentin] Family History Father Myocardial infarction Cancer prostate, leukemia Agent orange exposure Diabetes Sister Diabetes COPD (chronic obstructive pulmonary disease) Mother CVA (cerebral vascular accident) Hypertension Surgical History History of appendectomy History of back surgery History of cholecystectomy (1991) History of cholecystectomy History of coronary artery stent placement (05/19/21) History of hysterectomy History of laparoscopy History of left heart catheterization (09/14/21) History of tonsillectomy Status post insertion of nerve stimulator Social History household members: significant other Smoking Status: Former smoker how long ago did patient quit smoking: Quit 1990, smoke 2 ppd since teen until quit. alcohol intake: current alcohol intake frequency: holidays/special occasions only substance use type: does not use caffeine: Yes ROS ROS Narrative Constitutional: Reports fatigue and weakness. Mild chills but denies fever. Nodiaphoresis or sweating HEENT: Reports systems reviewed and no addt'l complaints, except as documented Respiratory/Chest: No acute shortness of breath or respiratory distress or wheezing. CVS: No chest pressure or pain or tightness Gastrointestinal: Mild nausea, loss of appetite. Denies coffee ground emesis, hematemesis or vomiting Genitourinary: Hematuria. Rest as described in HPI. History of UTI about 7 years ago Musculoskeletal: Had back surgery in the past. Denies acute joint pain or limited range of motion. No acute injury Neurologic: Denies seizure-like symptoms. skin: No ulcer. No rash Endocrinology: Reports systems reviewed and no addt'l complaints, except as documented Hematologic/Lymphatic: Reports systems reviewed and no addt'l complaints, exceptas documented Rest 14 ROS are negative except as mentioned in HPI Vital Signs Vital Signs Vital Signs: 09/06/23 11:42 09/06/23 12:53 09/06/23 13:30 Temperature 97.3 F L Temperature Source Temporal Pulse Rate 87 83 83 Respiratory Rate 14 14 14 Blood Pressure 134/84 H 112/47 L 113/67 Blood Pressure Mean 100 68 82 Pulse Ox 99 100 100 Oxygen Delivery Method Room Air Room Air Room Air 09/06/23 14:52 09/06/23 15:53 09/06/23 16:00 Temperature 98.5 F 97.8 F 98.6 F Temperature Source Temporal Temporal Pulse Rate 80 80 78 Respiratory Rate 14 15 18 Blood Pressure 107/68 131/82 H 128/74 H Blood Pressure Mean 81 98 92 Pulse Ox 99 100 100 Oxygen Delivery Method Room Air Room Air Weight Weight: 209 lb Body Mass Index (BMI) 35.9 Physical Exam Narrative General: Alert, Oriented x3, Cooperative. BMI 35.8 kg/m? HEENT: Atraumatic, PERRLA, EOMI, Normocephalic Oral: No Gingival or Mucosal Lesions/ Ulcerations Neck: Supple, No JVD, Negative Carotid Bruits Chest wall/Lungs: Air entry diminished in bilateral lung bases. No crepitation/rhonchi Cardiovascular: Regular rate, Regular Rhythm, Normal S1, Normal S2, No M/G/R Abdomen: Bowel Sounds Present, Soft, Non Tender, Non-Distended : Mild tenderness present in suprapubic region. Hematuria. Triple-lumen Gaspar catheter. CBI no renal angle tenderness. Extremities: No edema, Capillary Refill Less than 3 Seconds Skin: No rashes, No breakdown Musculoskeletal: No Tenderness to Palpation of Joints or Extremities. Degenerative arthritis of knees joints Spine: Lumbar spine surgical scar. Neurological: Cranial nerves II-XII grossly intact, DTR 2+/4. No acute focal neurological deficit. Psych/Mental Status: Normal Affect, Appropriate. Results Lab / Micro Data 09/06/23 12:30 09/06/23 12:30 Labs: Laboratory Results - last 24 hr 09/06/23 12:30: WBC 7.0, RBC 3.17 L, Hgb 10.2 L, Hct 31.1 L, MCV 98.1, MCH 32.2 H, MCHC 32.8, RDW Std Deviation 51.8 H, RDW Coeff of Tomi 14.8 H, Plt Count 220, MPV 9.8, Immature Gran % (Auto) 0.300, Neut % (Auto) 66.9, Lymph % (Auto) 24.9, [place] % (Auto) 7.2, Eos % (Auto) 0.6, Baso % (Auto) 0.1, Absolute Neuts (auto) 4.7, Absolute Lymphs (auto) 1.73, Nucleated RBC % 0, Sodium 137, Potassium 3.9, Chloride 110 H, Carbon Dioxide 20.0 L, Anion Gap 7, BUN 30 H, Creatinine 0.84, Estim Creat Clear Calc 86.50, Est GFR (MDRD) Af Amer 90, Est GFR (MDRD) Non-Af 75, BUN/Creatinine Ratio 35.5 H, Glucose 169 H, Calcium 8.5 09/06/23 12:40: Urine Color Red, Urine Clarity Turbid, Urine pH 7.0, Ur SpecificGravity 1.010, Urine Protein 500 H, Urine Glucose (UA) 250 H, Urine Ketones Negative, Urine Occult Blood 250 H, Urine Nitrite Negative, Urine Bilirubin Negative, Urine Urobilinogen Normal, Ur Leukocyte Esterase Negative, Urine RBC 50-100 SEEN, Urine WBC 0 SEEN, Ur Squamous Epith Cells 0 SEEN, Urine Bacteria 0 SEEN, Urine Mucus 0 SEEN Assessment & Plan Assessment/Plan (1) Gross hematuria: PLAN: Plan This 52-year-old female is being admitted for sudden onset of gross hematuria today in the morning. 1. Acute on recurrent gross hematuria most likely due to Plavix and Eliquis: Patient is being admitted in PCU. During previous admission patient had Gaspar catheter which was discontinued and she was voiding spontaneously without blood at the time of discharge but restarted today. H&H every 6 hourly. Urologist javadonsulted. Hold Plavix and Eliquis. Urologist Dr. Breenice Short is consulted. Continue continuous bladder irrigation. Although UA is negative for LE and nitrite but started on IV ceftriaxone because chances of UTI is high with Gaspar catheter and passing blood clots. During previous admission, urine culture grew less than 1000 E. coli and lactobacillus suggestive of commensal/colonization/contamination. CT abdomen/pelvis on 08/25 shows diffuse bladder wall thickening and pericecal fat stranding possible cystitis with possibility of asymmetric thickening of right posterior lateral bladder wall. Nonobstructive calculi lower pole of right kidney unchanged. Had cholecystectomy appendectomy and hysterectomy #2. Chronic blood loss anemia secondary to gross hematuria: Hemoglobin 10.2/31%. Patient was discharged on 9.7 g therefore does not meet criteria for acute anemia #3. Type 2 diabetes-glucose in BMP is 169. Patient home dose of Humalog insulindecreased but long-acting insulin continued. Accu-Chek ACH cover with sliding scale. #4. Paroxysmal A-fib heart rate is controlled. Apixaban is held. Carvedilol discontinued with holding parameters. #6. Chronic ischemic cardiomyopathy is a history of non-STEMI/CAD with chronic HFrEF:-The patient's last echocardiogram showed a 45% EF. Home medications continued. Hold Lasix, Entresto and spironolactone today as patient blood pressure is in the 120 systolic. May resume gradually once hemodynamic parameters are stable. 7. DVT prophylaxis: Pharmacological prophylaxis is contraindicated. Bilateral SCDs Living will/advanced directive/end of life care: Patient does have living will or advanced directive. Her fianc? near the bedside, [facility] After discussion of benefits/risks procedures involved with full code, DNR CC arrest and DNR CC, the patient opted for full code. Patient does want artificial life support including intubation, tube feed, ventilator and/chest compression, central venous catheter, vasopressor and DC shock if needed Total time spent in [id number] encounter in discussion of advanced directive 17 minutes. Laboratory Results 09/06/23 12:30: WBC 7.0, RBC 3.17 L, Hgb 10.2 L, Hct 31.1 L, MCV 98.1, MCH 32.2 H, MCHC 32.8, RDW Std Deviation 51.8 H, RDW Coeff of Tomi 14.8 H, Plt Count 220, MPV 9.8, Immature Gran % (Auto) 0.300, Neut % (Auto) 66.9, Lymph % (Auto) 24.9, [place] % (Auto) 7.2, Eos % (Auto) 0.6, Baso % (Auto) 0.1, Absolute Neuts (auto) 4.7, Absolute Lymphs (auto) 1.73, Nucleated RBC % 0, Sodium 137, Potassium 3.9, Chloride 110 H, Carbon Dioxide 20.0 L, Anion Gap 7, BUN 30 H, Creatinine 0.84, Estim Creat Clear Calc 86.50, Est GFR (MDRD) Af Amer 90, Est GFR (MDRD) Non-Af 75, BUN/Creatinine Ratio 35.5 H, Glucose 169 H, Calcium 8.5 09/06/23 12:40: Urine Color Red, Urine Clarity Turbid, Urine pH 7.0, Ur SpecificGravity 1.010, Urine Protein 500 H, Urine Glucose (UA) 250 H, Urine Ketones Negative, Urine Occult Blood 250 H, Urine Nitrite Negative, Urine Bilirubin Negative, Urine Urobilinogen Normal, Ur Leukocyte Esterase Negative, Urine RBC 50-100 SEEN, Urine WBC 0 SEEN, Ur Squamous Epith Cells 0 SEEN, Urine Bacteria 0 SEEN, Urine Mucus 0 SEEN Charges/Coding Visit Charges Inpatient E&M: 77352 Init Hosp L3 Procedures Hospitalists Procedures: 09665 Advncd Care Plan 30 Min 09/06/23 1732 <Electronically signed by Navdeep Bourgeois MD> Cosigner Signature (if applicable): CC: Dr. Margo Tatum DO; Dr. Navdeep Bourgeois MD~ Signed [facility] Work Phone: Hospital Discharge instructions Additional Instructions CAT scans unremarkable. Labs are normal. Ice to abdominal wall. Tylenol for pain. Follow-up if not improving.[facility] Work Phone: Reason for referral (narrative)No reason for referral information availableWUniversity [facility] Work Phone: Reason for visit Narrative* Auth/Cert Specialty Diagnoses / Procedures Referred By Contac t Referred To Contact Diagnoses Other cardiomyopathy Other cardiomyopathy [I42.8] Procedures DE INSJ/RPLCMT PERM DFB W/TRNSVNS LDS 1/DUAL CHMBR ICD SCHED INSERT BIV DEVICE AND LEADS ([id number], [id number]) Serafin Padron MD [address] [place] [address] [facility] [address] [place] [address] Referral ID Status Reason Start Date Expiration Date Visits Re quested Visits Authorized [id number] 1 1 [facility] Summary Purpose Family History Relationship Condition Age at Onset Recorded Date/T pro father Myocardial infarction Unknown Malignant neoplasm Unknown Exposure to Agent [place] Unknown Diabetes mellitus Unknown sister Diabetes mellitus Unknown Chronic obstructive pulmonary disease Unk nown Relationship Condition Age at Onset Recorded Date/T pro father Myocardial infarction Unknown Malignant neoplasm Unknown Exposure to Agent [place] Unknown Diabetes mellitus Unknown sister Diabetes mellitus Unknown Chronic obstructive pulmonary disease Unk nown mother Cerebrovascular accident (CVA) Unknown Hypertension Unknown Advance Directives Advance Directive Response Recorded Date/ Time Name of Medical Power of Dispensing Lead chance & klaus jolie May 19, 2021 1:29am Name of Medical Power of Dispensing Lead Dani Wastammy, Chance Jolie, and Aj Jolie May 23, 2021 12:38am Advance Directives on File Yes 2021 11:17am Name of Medical Power of Dispensing Lead indra wascarliiz June 04, 2021 2:02pm Name of Medical Power of Dispensing Lead Chance and Klaus Jolie July 17, 2021 4:55pm Advance Directives No June 19, 2017 8:43am Living Will No September 08, 2021 8:35pm Power of Dispensing Lead No September 08 8:35pm Advance Directive Response Recorded Date/ Time Name of Medical Power of Dispensing Lead chance & klaus jolie May 19, 2021 1:29am Name of Medical Power of Dispensing Lead Dani Wascarltoneicz, Chance Jolie, and Aj Jolie May 23, 2021 12:38am Advance Directives on File Yes 2021 11:17am Name of Medical Power of Dispensing Lead indra waskiewiz June 04, 2021 2:02pm Name of Medical Power of Dispensing Lead Chance and Klaus Jolie July 17, 2021 4:55pm Advance Directives No June 19, 2017 8:43am Living Will No September 16, 2021 8:52pm Power of Dispensing Lead Yes September 16 8:52pm Advance Directive Response Recorded Date/ Time Name of Medical Power of Dispensing Lead Dani Cantrell, Chance Dave, and Aj Dave May 23, 2021 12:38am Advance Directives on File Yes Mikhail 2021 11:17am Name of Medical Power of Dispensing Lead indra lopezanders June 04, 2021 2:02pm Name of Medical Power of Dispensing Lead Chance and Klaus Jolie July 17, 2021 4:55pm Name of Medical Power of Dispensing Lead dani kumar September 16, 2021 8:52pm Advance Directives No June 19, 2017 8:43am Living Will Yes September 20, 2021 7:13pm Power of Dispensing Lead Yes September 20 7:13pm Advance Directive Response Recorded Date/ Time Name of Medical Power of Dispensing Lead Chance and Klaus Jolie July 17, 2021 4:55pm Name of Medical Power of Dispensing Lead dani kumar September 16, 2021 8:52pm Advance Directives No June 19, 2017 8:43am Living Will Yes September 20, 2021 7:13pm Power of Dispensing Lead Yes September 20 7:13pm Advance Directive Response Recorded Date/ Time Name of Medical Power of Dispensing Lead Chance and Klaus Jolie July 17, 2021 4:55pm Name of Medical Power of Dispensing Lead dani kumar September 16, 2021 8:52pm Name of Medical Power of Dispensing Lead toby salter September 20, 2021 7:13pm Advance Directives No June 19, 2017 8:43am Living Will No November 06, 2021 6 :25pm Power of Dispensing Lead No November 06, 2021 6:25pm Advance Directive Response Recorded Date/ Time Name of Medical Power of Dispensing Lead dani cerna pat September 16, 2021 8:52pm Name of Medical Power of Dispensing Lead toby salter September 20, 2021 7:13pm Advance Directives No June 19, 2017 8:43am Living Will Yes November 17, 2021 4:45am Power of Dispensing Lead Yes November 17 4:45am Advance Directive Response Recorded Date/ Time Name of Medical Power of Dispensing Lead dani November 17, 2021 4:45am Name of Medical Power of Dispensing Lead DANI STEWART January 24, 2022 8:27pm Advance Directives No February 2:11pm Living Will Yes February 26, 2022 2:11pm Power of Dispensing Lead Yes February 2:11pm Advance Directive Response Recorded Date/ Time Name of Medical Power of Dispensing Lead DANI STEWART January 24, 2022 8:27pm Advance Directives No February 2:11pm Living Will No April 05 4:06pm Power of Dispensing Lead No April 05, 2022 4:06pm Advance Directive Response Recorded Date/ Time Name of Medical Power of Dispensing Lead DANI STEWART January 24, 2022 7:27pm Advance Directives No February 1:11pm Living Will No April 05 3:06pm Power of Dispensing Lead No April 05, 2022 3:06pm Advance Directive Response Recorded Date/ Time Name of Medical Power of Dispensing Lead DANI STEWART January 24, 2022 7:27pm Advance Directives No February 1:11pm Living Will No May 08 12:43pm Power of Dispensing Lead No May 08, 2022 12:43pm Advance Directive Response Recorded Date/ Time Advance Directives No February 1:11pm Living Will No May 08 12:43pm Power of Dispensing Lead No May 08, 2022 12:43pm Advance Directive Response Recorded Date/ Time Advance Directives No February 1:11pm Living Will No June 30 11:24am Power of Dispensing Lead No June 30, 2022 11:24am Advance Directive Response Recorded Date/ Time Name of Medical Power of Dispensing Lead Toby (Dani) August 06, 2022 6:03pm Advance Directives No February 1:11pm Living Will Yes August 06, 2022 6:03pm Power of Dispensing Lead Yes August 06 6:03pm Advance Directive Response Recorded Date/ Time Name of Medical Power of Dispensing Lead Toby (Dani) August 06, 2022 11:17pm Advance Directives No February 1:11pm Living Will Yes August 06, 2022 11:17pm Power of Dispensing Lead Yes August 06 11:17pm Latest Code Status on File Code Status Date Activated Date Inactivated Comments Full Code 08/18/2022 1:24 PM Code Status History Code Status Date Activated Date Inactivated Comments Full Code 01/01/2012 1:01 AM 01/11/2012 6:36 PM Full Code-Unverified 12/10/2011 11:37 PM 12/17/2011 8:56 PM Advance Directive Response Recorded Date/ Time Name of Medical Power of Dispensing Lead Toby (Dani) August 07, 2022 12:17am Advance Directives No February 2:11pm Living Will No September 06, 2022 4:45am Power of Dispensing Lead No September 06 4:45am Advance Directive Response Recorded Date/ Time Name of Medical Power of Dispensing Lead Toby (Dani) August 07, 2022 12:17am Name of Medical Power of Dispensing Lead RICHARD Ramiro. October 07, 2022 3:23pm Advance Directives No February 2:11pm Living Will Yes October 07, 2022 3: 23pm Power of Dispensing Lead Yes October 07, 2022 3:23pm Advance Directive Response Recorded Date/ Time Name of Medical Power of Dispensing Lead Toby (Dani) August 07, 2022 12:17am Name of Medical Power of Dispensing Lead RICHARD M. October 07, 2022 3:23pm Advance Directives No February 2:11pm Living Will No October 18, 2022 1 :08pm Power of Dispensing Lead No October 18, 2022 1:08pm Advance Directive Response Recorded Date/ Time Name of Medical Power of Dispensing Lead RICHARD M. October 07, 2022 3:23pm Advance Directives No February 2:11pm Living Will No October 18, 2022 1 :08pm Power of Dispensing Lead No October 18, 2022 1:08pm Advance Directive Response Recorded Date/ Time Name of Medical Power of Dispensing Lead mom May 18, 2023 9:47am Advance Directives No February 1:11pm Living Will Yes May 18, 023 9:47am Power of Dispensing Lead Yes May 18, 2023 9:47am Advance Directive Response Recorded Date/ Time Name of Medical Power of Dispensing Lead mom May 18, 2023 10:47am Advance Directives No February 2:11pm Living Will No August 02, 10:54am Power of Dispensing Lead No August 02, 2023 10:54am Advance Directive Response Recorded Date/ Time Name of Medical Power of Dispensing Lead mom May 18, 2023 10:47am Advance Directives No February 2:11pm Living Will No August 26, 2023 7:26pm Power of Dispensing Lead No August 25 7:26pm Advance Directive Response Recorded Date/ Time Name of Medical Power of Dispensing Lead mom May 18, 2023 10:47am Name of Medical Power of Dispensing Lead Dani Cerna cz August 26, 2023 11:59pm Advance Directives No February 2:11pm Living Will Yes August 26, 2023 11:59pm Power of Dispensing Lead Yes August 25 11:59pm Advance Directive Response Recorded Date/ Time Name of Medical Power of Dispensing Lead mom May 18, 2023 10:47am Name of Medical Power of Dispensing Lead Dani Cerna cz August 26, 2023 11:59pm Name of Medical Power of Dispensing Lead recalled September 06, 2023 12:45pm Advance Directives No February 2:11pm Living Will Yes September 06, 2023 12:45pm Power of Dispensing Lead Yes September 05 12:45pm Advance Directive Response Recorded Date/ Time Name of Medical Power of Dispensing Lead mom May 18, 2023 10:47am Name of Medical Power of Dispensing Lead Dani Cerna cz August 26, 2023 11:59pm Name of Medical Power of Dispensing Lead dani stewart September 06, 2023 7:32pm Advance Directives No February 2:11pm Living Will Yes September 06, 2023 7:32pm Power of Dispensing Lead Yes September 05 7:32pm Advance Directive Response Recorded Date/ Time Living Will Yes January 18 4:03pm Do you have a Healthcare Power of Dispensing Lead? Yes January 19, 2024 4:03pm Living Will No May 30 7:42pm Do you have a Healthcare Power of Dispensing Lead? No May 30, 2024 7:42pm Living Will No September 09, 2024 4:10pm Do you have a Healthcare Power of Dispensing Lead? No September 09, 2024 4:10pm Advance Directives No January 02 9:13am Advance Directive Response Recorded Date/ Time Living Will Yes January 18 4:03pm Do you have a Healthcare Power of Dispensing Lead? Yes January 19, 2024 4:03pm Living Will No May 30 7:42pm Do you have a Healthcare Power of Dispensing Lead? No May 30, 2024 7:42pm Living Will No September 09, 2024 9:08pm Do you have a Healthcare Power of Dispensing Lead? No September 09, 2024 9:08pm Advance Directives No January 02 9:13am Advance Directive Response Recorded Date/ Time Living Will No September 09, 2024 9:08pm Do you have a Healthcare Power of Dispensing Lead? No September 09, 2024 9:08pm Do you have a Healthcare Power of Dispensing Lead? No October 15, 2024 10:57am Advance Directives No January 02 9:13am Advance Directive Response Recorded Date/ Time Living Will No September 09, 2024 9:08pm Do you have a Healthcare Power of Dispensing Lead? No September 09, 2024 9:08pm Do you have a Healthcare Power of Dispensing Lead? No October 15, 2024 10:57am Do you have a Healthcare Power of Dispensing Lead? No November 30, 2024 3:50pm Advance Directives No January 02 9:13am Chief Complaint and Reason for Visit Chief Complaint CP NSTEMI NSTEMI NSTEMI NSTEMI NSTEMI NSTEMI NON-STEMI, UNSTABLEANGINA NON-STEMI, UNSTABLEANGINA NON-STEMI, [place]STABLE[place] NON-STEMI, [place]STABLEANG[place] NON-STEMI, [place]STABLEANG[place] NON-STEMI, UNSTABLEANG[place] NON-STEMI, [place]STABLEANG[place] NON-STEMI, UNSTABLEANGINA NON-STEMI, UNSTABLEANGINA CP cp 2 W FU NSTEMI, PCI w/coronary stenting THYROID NODULE NON TOXIC MULTI NODULAR GOITER NSTEMI, PCI W/CORONARY STENTING SYNCOPE WITH TRAE SYNCOPE WITH TRAE SYNCOPE WITH TRAE SYNCOPE WITH TRAE FNA THYROID sob RESPIRATORY FAILURE, CHF EXACERBATION, FLASH PUL Reason for Visit Atherosclerotic hear t disease of [place] coronary artery without angina pectoris History of coronary artery stent placement Sleep apnea Type 2 diabetes mellitus Benign hypertension HFrEF (heart failure with reduced ejection fraction) Hyperlipidemia Left bundle branch block (LBBB) Non-ischemic cardiomyopathy Obesity Non-ST elevation IA (NSTEMI) Nonobstructive atherosclerosis of coronary artery Atherosclerotic heart disease of [place] coronary artery without angina pectoris Cardiomyopathy, ischemic History of coronary artery stent placement Type 2 diabetes mellitus Benign hypertension HFrEF (heart failure with reduced ejection fraction) Hyperlipidemia Obesity Non-ST elevation IA (NSTEMI) Atherosclerotic heart disease of [place] coronary artery without angina pectoris Benign hypertension Hyperlipidemia Non-ischemic cardiomyopathy Acute dehydration Acute kidney injury Bradycardia Chest pain Hyponatremia Near syncope Acute respiratory failure Congestive heart failure Difficult intubation Type 2 diabetes mellitus Left bundle branch block (LBBB) Chief Complaint CP NSTEMI NSTEMI NSTEMI NSTEMI NSTEMI NSTEMI NON-STEMI, [place]STABLEANG[place] NON-STEMI, [place]ST[place] NON-STEMI, [place] NON-STEMI, [place]ST[place] NON-STEMI, UNST[place] NON-STEMI, UNSTABLEANG[place] NON-STEMI, UNSTABLE[place] NON-STEMI, UNSTABLEANG[place] NON-STEMI, UNSTABLEANGINA CP cp 2 W FU NSTEMI, PCI w/coronary stenting THYROID NODULE NON TOXIC MULTI NODULAR GOITER NSTEMI, PCI W/CORONARY STENTING SYNCOPE WITH TRAE SYNCOPE WITH TRAE SYNCOPE WITH TRAE SYNCOPE WITH TRAE FNA THYROID sob RESPIRATORY FAILURE, CHF EXACERBATION, FLASH PUL RESPIRATORY FAILURE, CHF EXACERBATION, FLASH PUL RESPIRATORY FAILURE, CHF EXACERBATION, FLASH PUL RESPIRATORY FAILURE, CHF EXACERBATION, FLASH PUL RESPIRATORY FAILURE, CHF EXACERBATION, FLASH PUL RESPIRATORY FAILURE, CHF EXACERBATION, FLASH PUL RESPIRATORY FAILURE, CHF EXACERBATION, FLASH PUL RESPIRATORY FAILURE, CHF EXACERBATION, FLASH PUL RESPIRATORY FAILURE, CHF EXACERBATION, FLASH PUL RESPIRATORY FAILURE, CHF EXACERBATION, FLASH PUL RESPIRATORY FAILURE, CHF EXACERBATION, FLASH PUL RESPIRATORY FAILURE, CHF EXACERBATION, FLASH PUL RESPIRATORY FAILURE, CHF EXACERBATION, FLASH PUL RESPIRATORY FAILURE, CHF EXACERBATION, FLASH PUL RESPIRATORY FAILURE, CHF EXACERBATION, FLASH PUL RESPIRATORY FAILURE, CHF EXACERBATION, FLASH PUL RESPIRATORY FAILURE, CHF EXACERBATION, FLASH PUL Reason for Visit Atherosclerotic hear t disease of [place] coronary artery without angina pectoris History of coronary artery stent placement Sleep apnea Type 2 diabetes mellitus Benign hypertension HFrEF (heart failure with reduced ejection fraction) Hyperlipidemia Left bundle branch block (LBBB) Non-ischemic cardiomyopathy Obesity Non-ST elevation [place] (NSTEMI) Nonobstructive atherosclerosis of coronary artery Atherosclerotic heart disease of [place] coronary artery without angina pectoris Cardiomyopathy, ischemic History of coronary artery stent placement Type 2 diabetes mellitus Benign hypertension HFrEF (heart failure with reduced ejection fraction) Hyperlipidemia Obesity Non-ST elevation IA (NSTEMI) Atherosclerotic heart disease of [place] coronary artery without angina pectoris Benign hypertension Hyperlipidemia Non-ischemic cardiomyopathy Acute dehydration Acute kidney injury Bradycardia Chest pain Hyponatremia Near syncope Acute respiratory failure Atherosclerotic heart disease of [place] coronary artery without angina pectoris Cardiomyopathy, ischemic Congestive heart failure Difficult intubation History of coronary artery stent placement Non-ST elevation (NSTEMI) myocardial infarction Type 2 diabetes mellitus Benign hypertension HFrEF (heart failure with reduced ejection fraction) Hyperlipidemia Left bundle branch block (LBBB) Non-ischemic cardiomyopathy Chief Complaint NSTEMI NSTEMI NSTEMI NSTEMI NSTEMI NON-STEMI, [place]STABLEANG[place] NON-STEMI, UNSTABLEANG[place] NON-STEMI, UNSTABLE[place] NON-STEMI, UNSTABLEANGINA NON-STEMI, UNSTABLEANGINA NON-STEMI, [place]STABLE[place] NON-STEMI, [place]STABLE[place] NON-STEMI, UNSTABLEANG[place] NON-STEMI, UNSTABLEANGINA CP cp 2 W FU NSTEMI, PCI w/coronary stenting THYROID NODULE NON TOXIC MULTI NODULAR GOITER NSTEMI, PCI W/CORONARY STENTING SYNCOPE WITH TRAE SYNCOPE WITH TRAE SYNCOPE WITH TRAE SYNCOPE WITH TRAE FNA THYROID sob RESPIRATORY FAILURE, CHF EXACERBATION, FLASH PUL RESPIRATORY FAILURE, CHF EXACERBATION, FLASH PUL RESPIRATORY FAILURE, CHF EXACERBATION, FLASH PUL RESPIRATORY FAILURE, CHF EXACERBATION, FLASH PUL RESPIRATORY FAILURE, CHF EXACERBATION, FLASH PUL RESPIRATORY FAILURE, CHF EXACERBATION, FLASH PUL RESPIRATORY FAILURE, CHF EXACERBATION, FLASH PUL RESPIRATORY FAILURE, CHF EXACERBATION, FLASH PUL RESPIRATORY FAILURE, CHF EXACERBATION, FLASH PUL RESPIRATORY FAILURE, CHF EXACERBATION, FLASH PUL RESPIRATORY FAILURE, CHF EXACERBATION, FLASH PUL RESPIRATORY FAILURE, CHF EXACERBATION, FLASH PUL RESPIRATORY FAILURE, CHF EXACERBATION, FLASH PUL RESPIRATORY FAILURE, CHF EXACERBATION, FLASH PUL RESPIRATORY FAILURE, CHF EXACERBATION, FLASH PUL RESPIRATORY FAILURE, CHF EXACERBATION, FLASH PUL RESPIRATORY FAILURE, CHF EXACERBATION, FLASH PUL RESPIRATORY FAILURE, CHF EXACERBATION, FLASH PUL dizz Reason for Visit Atherosclerotic hear t disease of [place] coronary artery without angina pectoris History of coronary artery stent placement Sleep apnea Type 2 diabetes mellitus Benign hypertension HFrEF (heart failure with reduced ejection fraction) Hyperlipidemia Left bundle branch block (LBBB) Non-ischemic cardiomyopathy Obesity Non-ST elevation IA (NSTEMI) Nonobstructive atherosclerosis of coronary artery Atherosclerotic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 RETENTION, ?UTI SEVERE HEMATURIA VAGINAL BLEEDING SEVERE HEMATURIA SEVERE HEMATURIA SEVERE HEMATURIA Reason for Visit Multiple thyroid nod ules Benign hypertension Obesity Type 2 diabetes mellitus Anticoagulated Acute urinary retention Hematuria Anticoagulant long-term use Anticoagulated Antiplatelet or antithrombotic long-term use Cardiomyopathy, ischemic Gross hematuria Urinary tract infection Benign hypertension History of coronary artery stent placement Obesity Type 2 diabetes mellitus Chief Complaint Admit Date SOB May 30, 2024 6:15pm Pacer Check Remote June 11, 2024 1: 00am 10 Wk FU June 13, 2024 3: 07pm INT LABS July 05, 2024 9 :40am CHF, DYSPNEA September 09, 2024 6:17 pm Reason for Visit Admit Date Benign hypertension June 13, 2024 3: 07pm Hyperlipidemia June 13, 2024 3: 07pm Hyperthyroidism June 13, 2024 3: 07pm Multiple thyroid nodules June 13 3:07pm Obesity June 13, 2024 3: 07pm Type 2 diabetes mellitus June 13 3:07pm Chronic anticoagulation September 09, 2024 6:17pm Congestive heart failure (CHF) September 6:17pm Dyspnea September 09, 2024 6:17 pm Elevated d-dimer September 09, 2024 6:17 pm Hypoxia September 09, 2024 6:17 pm Pacemaker September 09, 2024 6:17 pm Chief Complaint Admit Date SOB May 30, 2024 6:15pm Pacer Check Remote June 11, 2024 1: 00am 10 Wk FU June 13, 2024 3: 07pm INT LABS July 05, 2024 9 :40am CHF, DYSPNEA September 09, 2024 6:17 pm COPD AND HEART FAILURE EXACERBATION Apri l 2024 8:17pm COPD AND HEART FAILURE EXACERBATION Apri l 2024 9:37am COPD AND HEART FAILURE EXACERBATION Apri l 2024 4:01pm Reason for Visit Admit Date Benign hypertension June 13, 2024 3: 07pm Hyperlipidemia June 13, 2024 3: 07pm Hyperthyroidism June 13, 2024 3: 07pm Multiple thyroid nodules June 13 3:07pm Obesity June 13, 2024 3: 07pm Type 2 diabetes mellitus June 13 3:07pm Chronic anticoagulation September 09, 2024 8:17pm Congestive heart failure (CHF) September 8:17pm Dyspnea September 09, 2024 8:17 pm Elevated d-dimer September 09, 2024 8:17 pm Hypoxia September 09, 2024 8:17 pm Pacemaker September 09, 2024 8:17 pm Chief Complaint Admit Date SOB May 30, 2024 6:15pm Pacer Check Remote June 11, 2024 1: 00am 10 Wk FU June 13, 2024 3: 07pm INT LABS July 05, 2024 9 :40am Pacer Check Remote August 29, 2024 1:0 1am Pacer Check Remote September 05, 2024 5:26 am CHF, DYSPNEA September 09, 2024 6:17 pm COPD AND HEART FAILURE EXACERBATION Apri l 2024 8:17pm COPD AND HEART FAILURE EXACERBATION Apri l 2024 9:37am COPD AND HEART FAILURE EXACERBATION Apri l 2024 4:01pm Pacer Check Remote September 11, 2024 5:59 pm 3 M FU September 12, 2024 2:41 pm NODULE September 24, 2024 12: 37pm Reason for Visit Admit Date Benign hypertension June 13, 2024 3: 07pm Hyperlipidemia June 13, 2024 3: 07pm Hyperthyroidism June 13, 2024 3: 07pm Multiple thyroid nodules June 13 3:07pm Obesity June 13, 2024 3: 07pm Type 2 diabetes mellitus June 13 3:07pm Congestive heart failure (CHF) September 8:17pm Dyspnea September 09, 2024 8:17 pm Elevated d-dimer September 09, 2024 8:17 pm Hypoxia September 09, 2024 8:17 pm Chronic anticoagulation September 09, 2024 8:17pm Pacemaker September 09, 2024 8:17 pm Benign hypertension September 12, 2024 2:41 pm Hyperlipidemia September 12, 2024 2:41 pm Hyperthyroidism September 12, 2024 2:41 pm Multiple thyroid nodules September 12, 2024 2:41pm Obesity September 12, 2024 2:41 pm Uncontrolled type 2 diabetes mellitus Ap ril 2024 2:41pm Congestive heart failure (CHF) September 2:41pm Chief Complaint Admit Date INT LABS July 05, 2024 9 :40am Pacer Check Remote August 29, 2024 1:0 1am Pacer Check Remote September 05, 2024 5:26 am CHF, DYSPNEA September 09, 2024 6:17 pm COPD AND HEART FAILURE EXACERBATION Apri l 2024 8:17pm COPD AND HEART FAILURE EXACERBATION Apri l 2024 9:37am COPD AND HEART FAILURE EXACERBATION Apri l 2024 4:01pm Pacer Check Remote September 11, 2024 5:59 pm 3 M FU September 12, 2024 2:41 pm NODULE September 24, 2024 12: 37pm CHEST PAIN October 15, 2024 10:31 am Reason for Visit Admit Date Congestive heart failure (CHF) September 8:17pm Dyspnea September 09, 2024 8:17 pm Elevated d-dimer September 09, 2024 8:17 pm Hypoxia September 09, 2024 8:17 pm Chronic anticoagulation September 09, 2024 8:17pm Pacemaker September 09, 2024 8:17 pm Benign hypertension September 12, 2024 2:41 pm Hyperlipidemia September 12, 2024 2:41 pm Hyperthyroidism September 12, 2024 2:41 pm Multiple thyroid nodules September 12, 2024 2:41pm Obesity September 12, 2024 2:41 pm Uncontrolled type 2 diabetes mellitus Ap ril 2024 2:41pm Congestive heart failure (CHF) September 2:41pm Chief Complaint Admit Date INT LABS July 05, 2024 9 :40am Pacer Check Remote August 29, 2024 1:0 1am Pacer Check Remote September 05, 2024 5:26 am CHF, DYSPNEA September 09, 2024 6:17 pm COPD AND HEART FAILURE EXACERBATION Apri l 2024 8:17pm COPD AND HEART FAILURE EXACERBATION Apri l 2024 9:37am COPD AND HEART FAILURE EXACERBATION Apri l 2024 4:01pm Pacer Check Remote September 11, 2024 5:59 pm 3 M FU September 12, 2024 2:41 pm NODULE September 24, 2024 12: 37pm CHEST PAIN October 15, 2024 10:31 am Pacer Check Remote October 17, 2024 6:56a m Chief Complaint Admit Date Pacer Check Remote August 29, 2024 1:0 1am Pacer Check Remote September 05, 2024 5:26 am CHF, DYSPNEA September 09, 2024 6:17 pm COPD AND HEART FAILURE EXACERBATION Apri l 2024 8:17pm COPD AND HEART FAILURE EXACERBATION Apri l 2024 9:37am COPD AND HEART FAILURE EXACERBATION Apri l 2024 4:01pm Pacer Check Remote September 11, 2024 5:59 pm 3 M FU September 12, 2024 2:41 pm NODULE September 24, 2024 12: 37pm CHEST PAIN October 15, 2024 10:31 am Pacer Check Remote October 17, 2024 6:56a m 2 M FU November 07, 2024 2:31p m Reason for Visit Admit Date Congestive heart failure (CHF) September 8:17pm Dyspnea September 09, 2024 8:17 pm Elevated d-dimer September 09, 2024 8:17 pm Hypoxia September 09, 2024 8:17 pm Chronic anticoagulation September 09, 2024 8:17pm Pacemaker September 09, 2024 8:17 pm Benign hypertension September 12, 2024 2:41 pm Hyperlipidemia September 12, 2024 2:41 pm Hyperthyroidism September 12, 2024 2:41 pm Multiple thyroid nodules September 12, 2024 2:41pm Obesity September 12, 2024 2:41 pm Uncontrolled type 2 diabetes mellitus Ap ril 2024 2:41pm Congestive heart failure (CHF) September 2:41pm Benign hypertension November 07, 2024 2:31p m Hyperlipidemia November 07, 2024 2:31p m Hyperthyroidism November 07, 2024 2:31p m Multiple thyroid nodules November 07, 2024 2:31pm Obesity November 07, 2024 2:31p m Uncontrolled type 2 diabetes mellitus Ju ne 2024 2:31pm Vitamin D insufficiency November 07, 2024 2 :31pm Chief Complaint Admit Date Pacer Check Remote August 29, 2024 1:0 1am Pacer Check Remote September 05, 2024 5:26 am CHF, DYSPNEA September 09, 2024 6:17 pm COPD AND HEART FAILURE EXACERBATION Apri l 2024 8:17pm COPD AND HEART FAILURE EXACERBATION Apri l 2024 9:37am COPD AND HEART FAILURE EXACERBATION Apri l 2024 4:01pm Pacer Check Remote September 11, 2024 5:59 pm 3 M FU September 12, 2024 2:41 pm NODULE September 24, 2024 12: 37pm CHEST PAIN October 15, 2024 10:31 am Pacer Check Remote October 17, 2024 6:56a m 2 M FU November 07, 2024 2:31p m INCREASED SOB November 30, 2024 7:04 pm Reason for Visit Admit Date Congestive heart failure (CHF) September 8:17pm Dyspnea September 09, 2024 8:17 pm Elevated d-dimer September 09, 2024 8:17 pm Hypoxia September 09, 2024 8:17 pm Chronic anticoagulation September 09, 2024 8:17pm Pacemaker September 09, 2024 8:17 pm Benign hypertension September 12, 2024 2:41 pm Hyperlipidemia September 12, 2024 2:41 pm Hyperthyroidism September 12, 2024 2:41 pm Multiple thyroid nodules September 12, 2024 2:41pm Obesity September 12, 2024 2:41 pm Uncontrolled type 2 diabetes mellitus Ap ril 2024 2:41pm Congestive heart failure (CHF) September 2:41pm Benign hypertension November 07, 2024 2:31p m Hyperlipidemia November 07, 2024 2:31p m Hyperthyroidism November 07, 2024 2:31p m Multiple thyroid nodules November 07, 2024 2:31pm Obesity Cecy 4th, 2025 2:31p m Uncontrolled type 2 diabetes mellitus Ju 2024 2:31pm Vitamin D insufficiency November 07, 2024 2 :31pm Shortness of breath November 30, 2024 7:04 pm Reason for Referral Specialty Diagnoses / Procedures Referred By Contac t Referred To Contact Procedures PACEMAKER/ICD INTERROGATION Serafin Padron MD [address] [place] [address] Referral ID Status Reason Start Date Expiration Date V isits Requested Visits Authorized [id number] New Request 08/18/2022 09/12/2023 1 1 Specialty Diagnoses / Procedures Referred By Contac t Referred To Contact Procedures ECG Edward Pandey MD [address] [place] [address] Referral ID Status Reason Start Date Expiration Date V isits Requested Visits Authorized [id number] New Request 09/20/2022 10/15/2023 1 1 Additional Source Comments INFORMATION SOURCE (unrecogn ized section and content) DATE CREATED AUTHOR 08/26/2021 [facility] DATE CREATED AUTHOR AUTHOR'S ORGANIZ ATION 11/22/2022 [facility] DATE CREATED AUTHOR AUTHOR'S ORGANIZ ATION 11/23/2024 [facility] Goals (unrecognized section and content) Goals may be documented in a n alternate sectionGoals may be documented in an alternate sectionGoals may be documented in an alternate sectionGoals may be documented in an alternate sectionGoals may be documented in an alternate sectionGoals may be documented in an alternate sectionGoals may be documented in an alternate sectionGoals may be documented in an alternate sectionGoals may be documented in an alternate sectionGoals may be documented in an alternate sectionGoals may be documented in an alternate sectionGoals may be documented in an alternate sectionGoals may be documented in an alternate sectionGoals may be documented in an alternate sectionGoals may be documented in an alternate sectionGoals may be documented in an alternate sectionGoals may be documented in an alternate sectionGoals may be documented in an alternate sectionGoals may be documented in an alternate sectionGoals may be documented in an alternate sectionGoals may be documented in an alternate sectionGoals may be documented in an alternate sectionGoals may be documented in an alternate sectionGoals may be documented in an alternate sectionGoals may be documented in an alternate section Care Teams (unrecognized sec tion and content) Team Status: Active Member Role Status Dates Dr. Margo Tatum DO Family Provider Active Dr. Margo Tatum DO Primary Care Provider Active Team Status: Inactive Member Role Status Dates Dr. Margo Tatum DO Primary Care Provider, Referring P rovider Active Bryan Mitchell PALS SPECIALIST, PALS SPECIALIST-C Attending Provider Active Team Status: Active Member Role Status Dates Dr. Margo Tatum DO Primary Care Provider Active Dr. Cr Ho MD Attending Provider Active Team Status: Inactive Member Role Status Dates Dr. Margo Tatum DO Primary Care Provider, Referring P rovider Active Dr. Edward Hancock MD Attending Provider Active Team Status: Inactive Member Role Status Dates Dr. Margo Tatum DO Primary Care Provider, Referring P rovider Active CARMEN Colindres Attending Provider Active Team Status: Active Member Role Status Dates Mehnaz Laughlin MD Primary Care Provider, Family Provid er Active Team Status: Inactive Member Role Status Dates Dr. Margo Tatum DO Primary Care Provider Active Dr. Cr Ho MD Attending Provider, Referring Pro vider Active Team Status: Inactive Member Role Status Dates Dr. Margo Tatum DO Primary Care Provide r, Attending Provider, Referring Provider Active Team Status: Inactive Member Role Status Dates Dr. Margo Tatum DO Primary Care Provider Active Dr. Arjun Ortez DO Attending Provider, Emergency P rovider Active Team Status: Inactive Member Role Status Dates Dr. Margo Tatum DO Primary Care Provider Active Bryan Mitchell PALS SPECIALIST, PALS SPECIALIST-C Attending Provider Active Team Status: Inactive Member Role Status Dates Dr. Margo Tatum DO Primary Care Provider Active CARMEN Colindres Attending Provider Active Team Status: Inactive Member Role Status Dates Dr. Margo Tatum DO Primary Care Provider Active Dr. Alec Leiva , DO Attending Provider, Emergency P rovider Active Team Status: Inactive Member Role Status Dates Dr. Margo Tatum DO Primary Care Provider Active Dr. Edward Hancock MD Attending Provider, Referring P rovider Active Team Status: Inactive Member Role Status Dates Dr. Margo Tatum DO Primary Care Provider Active Dr. Edward Hancock MD Attending Provider Active Team Status: Inactive Member Role Status Dates Dr. Margo Tatum DO Primary Care Provider Active Dr. Aidan Baird , DO Attending Provider Active Team Status: Inactive Member Role Status Dates Dr. Margo Tatum DO Primary Care Provider Active ROLANDO ColindresC Attending Provider, Referring Pr ovider Active Team Status: Inactive Member Role Status Dates Dr. Margo Tatum DO Primary Care Provider Active Dr. Aura Santizo MD Emergency Provider Active Team Status: Inactive Member Role Status Dates Dr. Margo Tatum DO Primary Care Provider Active Dr. Aura Santizo MD Attending Provider, Emergency Provider Active Team Status: Active Member Role Status Dates Dr. Margo Tatum DO Primary Care Provider Active CARMEN Colindres Attending Provider, Referring Pr ovider Active Team Status: Active Member Role Status Dates Dr. Margo Tatum DO Primary Care Provider Active Dr. Arjun Ortez DO Emergency Provider Active Dr. Patel Nguyen MD Admit Provider, Attending Pro vider Active Team Status: Active Member Role Status Dates Dr. Margo Tatum DO Primary Care Provider Active Dr. Arjun Ortez DO Emergency Provider Active Dr. Patel Nguyen MD Admit Provider, Attending Provider, Other Provider Active Team Status: Active Member Role Status Dates Dr. Margo Tatum DO Primary Care Provider Active Dr. Arjun Ortez DO Emergency Provider Active Dr. Patel Nguyen MD Admit Provider, Other Provide r Active Dr. Suma Mathew MD Attending Provider Active Team Status: Active Member Role Status Dates Dr. Margo Tatum DO Primary Care Provider Active Dr. Arjun Ortez DO Emergency Provider Active Dr. Patel Nguyen MD Admit Provider, Other Provide r Active Dr. Suma Mathew MD Other Provider Active Dr. Gustavo Leslie MD Attending Provider Active Team Status: Active Member Role Status Dates Dr. Margo Tatum DO Primary Care Provider Active Dr. Arjun Ortez DO Emergency Provider Active Dr. Patel Nguyen MD Admit Provider, Other Provide r Active Dr. Suma Mathew MD Attending Provider, Other Provid er Active Team Status: Inactive Member Role Status Dates Dr. Margo Tatum DO Primary Care Provider Active Dr. Arjun Ortez , DO Emergency Provider Active Dr. Patel Nguyen MD Admit Provider, Other Provide r Active Dr. Suma Mathew MD Attending Provider Active Crusher Screen Repairer Relationship Specialty Start Date End Date Margo Tatum DO [address] [place] [address] PCP - General Family Medicine 07/20/22 Bryan Mitchell, COMPUTER TECHNICIAN [address] [place] [address] Nurse Practitioner - Family 07/19/22 Crusher Screen Repairer Relationship Specialty Start Date End Date Margo Tatum DO [address] [place] [address] PCP - General [facility] Medicine 07/20/22 Bryan Mitchell, COMPUTER TECHNICIAN [address] [place] [address] Nurse Practitioner - Family 07/19/22 Team Status: Active Member Role Status Dates Dr. Margo Tatum DO Primary Care Provider Active Dr. Cr Ho MD Attending Provider Active Dr. Patel Nguyen MD Referring Provider Active Team Status: Inactive Member Role Status Dates Dr. Margo Tatum DO Primary Care Provider, Referring P bambi Active Bethany Jacobson Active Dr. Cr Ho MD Attending Provider Active Team Status: Active Member Role Status Dates Dr. Margo Tatum DO Primary Care Provider Active Dr. Jak Loaiza MD Attending Provider Active Dr. Víctor Alvarez MD Referring Provider Active Team Status: Inactive Member Role Status Dates Dr. Margo Tatum DO Primary Care Provider Active Dr. Víctor Alvarez MD Attending Provider, Emergency Pro vider Active Team Status: Inactive Member Role Status Dates Dr. Margo Tatum DO Primary Care Provider Active Bryan Mitchell PALS SPECIALIST, PALS SPECIALIST-C Attending Provider, Referring Pro vider Active Team Status: Inactive Member Role Status Dates Dr. Margo Tatum DO Primary Care Provider Active Dr. Allen Meraz , DO Emergency Provider Active Team Status: Inactive Member Role Status Dates Dr. Margo Tatum DO Primary Care Provider Active Dr. Allen Meraz , DO Attending Provider, Emergency Pro vider Active Team Status: Inactive Member Role Status Dates Dr. Margo Tatum DO Primary Care Provider Active Dr. Víctor Alvarez MD Emergency Provider Active Team Status: Active Member Role Status Dates Dr. Margo Tatum DO Primary Care Provider Active Bryan Mitchell NP, PALS SPECIALIST-C Attending Provider Active Team Status: Active Member Role Status Dates Dr. Margo Tatum DO Primary Care Provider Active Dr. Darline Solano MD Attending Provider, Referring Pr ovider Active Team Status: Inactive Member Role Status Dates Dr. Margo Tatum DO Primary Care Provider, Referring P rovider Active Dr. Cr Ho MD Attending Provider Active Team Status: Inactive Member Role Status Dates Dr. Margo Tatum DO Primary Care Provider Active Dr. Cr Ho MD Attending Provider, Referring Pro vider Active Mike Tom NP-C Other Provider Active Team Status: Inactive Member Role Status Dates Dr. Margo Tatum DO Primary Care Provider Active Dr. Ryan Hidalgo DO Attending Provider, Emergency P rovider Active Team Status: Inactive Member Role Status Dates Dr. Margo Tatum DO Primary Care Provider Active Dr. Cr Ho MD Attending Provider Active Team Status: Inactive Member Role Status Dates Dr. aMrgo Tatum DO Primary Care Provider Active Dr. Oscar Lala MD Attending Provider, Referring Pr ovider Active Team Status: Active Member Role Status Dates Dr. Margo Tatum DO Primary Care Provider Active Dr. Rell Loera MD Emergency Provider Active Dr. Perlita Gómez MD Admit Provider, Attending Prov ider Active Team Status: Active Member Role Status Dates Dr. Margo Tatum DO Primary Care Provider Active Dr. Rell Loera MD Emergency Provider Active Dr. Perlita Gómez MD Admit Provider, Other Provider Active Dr. Emiliano Campoverde MD Other Provider Active Dr. Aidan Staples , DO Attending Provider, Other Pro vider Active Team Status: Active Member Role Status Dates Dr. Margo Tatum DO Primary Care Provider Active Dr. Rell Loera MD Emergency Provider Active Dr. Perlita Gómez MD Admit Provider, Other Provider Active Dr. Emiliano Campoverde MD Other Provider Active Dr. Damaris Thibodeaux , DO Attending Provider, Other Provide r Active Dr. Aidan Staples , DO Other Provider Active Team Status: Inactive Member Role Status Dates Dr. Margo Tatum DO Primary Care Provider Active Dr. Rell Loera MD Emergency Provider Active Dr. Perilta Gómez MD Admit Provider, Other Provider Active Dr. Emiliano Campoverde MD Other Provider Active Dr. Damaris Thibodeaux DO Attending Provider Active Dr. Aidan Staples DO Other Provider Active Team Status: Active Member Role Status Dates Dr. Margo Tatum DO Primary Care Provider Active Dr. Terry Arzate MD Emergency Provider Active Dr. aNvdeep Bourgeois MD Attending Provider Active Team Status: Active Member Role Status Dates Dr. Margo Tatum DO Primary Care Provider Active Dr. Terry Arzate MD Emergency Provider Active Dr. Navdeep Bourgeois MD Admit Provider, Attending Provi charlie Active Team Status: Active Member Role Status Dates Dr. Margo Tatum DO Primary Care Provider Active Dr. Terry Arzate MD Emergency Provider Active Dr. Navdeep Bourgeois MD Admit Provider, Other Provider Active Dr. Berenice Short MD Other Provider Active Dr. Jamie Manrique , DO Attending Provider, Other Provider Active Team Status: Active Member Role Status Dates Dr. Margo Tatum DO Primary Care Provider Active Dr. Terry Arzate MD Emergency Provider Active Dr. Navdeep Bourgeois MD Admit Provider, Other Provider Active Dr. Jamie Manrique DO Attending Provider, Other Provider Active Dr. Berenice Short MD Other Provider Active Team Status: Inactive Member Role Status Dates Dr. Margo Tatum DO Primary Care Provider Active Dr. Terry Arzate MD Emergency Provider Active Dr. Navdeep Bourgeois MD Admit Provider, Other Provider Active Dr. Jamie Manrique , DO Attending Provider Active Dr. Berenice Short MD Other Provider Active Team Status: Active Member Role Status Dates Dr. Margo Tatum DO Primary Care Provider Active Team Status: Active Member Role Status Dates Mehnaz Laughlin MD Primary Care Provider Active S tart: November 12, 2011 Mehnaz Laughlin MD Family Provider Active Start: November 12, 2011 Team Status: Inactive Member Role Status Dates Dr. Margo Tatum DO Primary Care Provider Active Start: May 30, 2024 End: May 30, 2024 Dr. Miguel Solorio DO Attending Provider Active Start : May 30, 2024 End: May 30, 2024 Dr. Miguel Solorio DO Emergency Provider Active Start : May 30, 2024 End: May 30, 2024 Team Status: Inactive Member Role Status Dates Dr. Margo Tatum DO Primary Care Provider Active Start: June 11, 2024 End: June 11, 2024 Dr. Cr Ho MD Attending Provider Active S tart: June 11, 2024 End: June 11, 2024 Team Status: Inactive Member Role Status Dates Dr. Margo Tatum DO Primary Care Provider Active Start: June 13, 2024 End: June 13, 2024 Dr. Margo Tatum DO Referring Provider Active St art: June 13, 2024 End: June 13, 2024 Mike Tom PALS SPECIALIST-C Attending Provider Active Start: June 13, 2024 End: June 13, 2024 Team Status: Inactive Member Role Status Dates Dr. Margo Tatum DO Primary Care Provider Active Start: July 05, 2024 End: July 05, 2024 Mike Tom PALS SPECIALIST-C Attending Provider Active Start: July 05, 2024 End: July 05, 2024 Mike Tom PALS SPECIALIST-C Referring Provider Active Start: July 05, 2024 End: July 05, 2024 Team Status: Active Member Role Status Dates Dr. Margo Tatum DO Primary Care Provider Active Start: September 09, 2024 Carlos Saleem MD Referring Provider Active Star t: September 09, 2024 Carlos Saleem MD Emergency Provider Active Star t: September 09, 2024 Dr. Francine Steele MD Admit Provider Active St art: September 09, 2024 Dr. Francine Steele MD Attending Provider Active Start: September 09, 2024 Dr. Francine Steele MD Other Provider Active St art: September 09, 2024 Team Status: Inactive Member Role Status Dates Dr. Margo Tatum DO Primary Care Provider Active Start: September 09, 2024 End: September 11, 2024 Carlos Saleem MD Referring Provider Active Star t: September 09, 2024 End: September 11, 2024 Carlos Saleem MD Emergency Provider Active Star t: September 09, 2024 End: September 11, 2024 Dr. Francine Steele MD Admit Provider Active St art: September 09, 2024 End: September 11, 2024 Dr. Francine Steele MD Other Provider Active St art: September 09, 2024 End: September 11, 2024 Dr. Damaris Thibodeaux DO Attending Provider Active S tart: September 09, 2024 End: September 11, 2024 Dr. Jamie Manrique DO Other Provider Active Start: September 09, 2024 End: September 11, 2024 Team Status: Active Member Role Status Dates Dr. Margo Tatum DO Primary Care Provider Active Start: September 10, 2024 Carlos Saleem MD Referring Provider Active Star t: September 10, 2024 Carlos Saleem MD Emergency Provider Active Star t: September 10, 2024 Dr. Francine Steele MD Admit Provider Active St art: September 10, 2024 Dr. Francine Steele MD Other Provider Active St art: September 10, 2024 Dr. Jamie Manrique DO Attending Provider Active Start: September 10, 2024 Dr. Jamie Manrique DO Other Provider Active Start: September 10, 2024 Team Status: Active Member Role Status Dates Dr. Margo Tatum DO Primary Care Provider Active Start: September 11, 2024 Carlos Saleem MD Referring Provider Active Star t: September 11, 2024 Carlos Saleem MD Emergency Provider Active Star t: September 11, 2024 Dr. Francine Steele MD Admit Provider Active St art: September 11, 2024 Dr. Francine Steele MD Other Provider Active St art: September 11, 2024 Dr. Damaris Thibodeaux DO Attending Provider Active S tart: September 11, 2024 Dr. Damaris Thibodeaux DO Other Provider Active Start : September 11, 2024 Dr. Jamie Manrique DO Other Provider Active Start: September 11, 2024 Team Status: Inactive Member Role Status Dates Dr. Margo Tatum DO Primary Care Provider Active Start: August 29, 2024 End: August 29, 2024 Dr. Cr Ho MD Attending Provider Active S tart: August 29, 2024 End: August 29, 2024 Team Status: Inactive Member Role Status Dates Dr. Margo Tatum DO Primary Care Provider Active Start: September 05, 2024 End: September 05, 2024 Dr. Cr Ho MD Attending Provider Active S tart: September 05, 2024 End: September 05, 2024 Team Status: Active Member Role Status Dates Dr. Margo Tatum DO Primary Care Provider Active Start: September 09, 2024 Carlos Saleem MD Emergency Provider Active Star t: September 09, 2024 Dr. Francine Steele MD Admit Provider Active St art: September 09, 2024 Dr. Francine Steele MD Attending Provider Active Start: September 09, 2024 Dr. Francine Steele MD Other Provider Active St art: September 09, 2024 Team Status: Active Member Role Status Dates Dr. Margo Tatum DO Primary Care Provider Active Start: September 10, 2024 Carlos Saleem MD Emergency Provider Active Star t: September 10, 2024 Dr. Francine Steele MD Admit Provider Active St art: September 10, 2024 Dr. Francine Steele MD Other Provider Active St art: September 10, 2024 Dr. Jamie Manrique DO Attending Provider Active Start: September 10, 2024 Dr. Jamie Manrique DO Other Provider Active Start: September 10, 2024 Team Status: Active Member Role Status Dates Dr. Margo Tatum DO Primary Care Provider Active Start: September 11, 2024 Carlos Saleem MD Emergency Provider Active Star t: September 11, 2024 Dr. Francine Steele MD Admit Provider Active St art: September 11, 2024 Dr. Francine Steele MD Other Provider Active St art: September 11, 2024 Dr. Damaris Thibodeaux DO Attending Provider Active S tart: September 11, 2024 Dr. Damaris Thibodeaux DO Other Provider Active Start : September 11, 2024 Dr. Jamie Manrique DO Other Provider Active Start: September 11, 2024 Team Status: Inactive Member Role Status Dates Dr. Margo Tatum DO Primary Care Provider Active Start: September 11, 2024 End: September 11, 2024 Dr. Cr Ho MD Attending Provider Active S tart: September 11, 2024 End: September 11, 2024 Team Status: Inactive Member Role Status Dates Dr. Margo Tatum DO Primary Care Provider Active Start: September 12, 2024 End: September 12, 2024 Dr. Margo Tatum DO Referring Provider Active St art: September 12, 2024 End: September 12, 2024 CARMEN Colindres Attending Provider Active Start: September 12, 2024 End: September 12, 2024 Team Status: Inactive Member Role Status Dates Dr. Margo Tatum DO Primary Care Provider Active Start: September 24, 2024 End: September 24, 2024 CARMEN Colindres Attending Provider Active Start: September 24, 2024 End: September 24, 2024 CARMEN Colindres Referring Provider Active Start: September 24, 2024 End: September 24, 2024 Team Status: Active Member Role Status Dates Dr. Margo Tatum DO Primary Care Provider Active Start: September 25, 2024 Dr. Darline Solano MD Attending Provider Active Start: September 25, 2024 Dr. Darline Solano MD Referring Provider Active Start: September 25, 2024 Team Status: Inactive Member Role Status Dates Dr. Margo Tatum DO Primary Care Provider Active Start: September 25, 2024 End: September 25, 2024 Dr. Darline Solano MD Attending Provider Active Start: September 25, 2024 End: September 25, 2024 Dr. Darline Solano MD Referring Provider Active Start: September 25, 2024 End: September 25, 2024 Team Status: Inactive Member Role Status Dates Dr. Margo Tatum DO Primary Care Provider Active Start: October 15, 2024 End: October 15, 2024 Dr. Arjun Ortez DO Emergency Provider Active Start: October 15, 2024 End: October 15, 2024 Team Status: Inactive Member Role Status Dates Dr. Margo Tatum DO Primary Care Provider Active Start: October 17, 2024 End: October 17, 2024 Dr. Cr Ho MD Attending Provider Active S tart: October 17, 2024 End: October 17, 2024 Team Status: Inactive Member Role Status Dates Dr. Margo Tatum DO Primary Care Provider Active Start: October 15, 2024 End: October 15, 2024 Dr. Arjun Ortez DO Attending Provider Active Start: October 15, 2024 End: October 15, 2024 Dr. Arjun Ortez DO Emergency Provider Active Start: October 15, 2024 End: October 15, 2024 Team Status: Inactive Member Role Status Dates Dr. Margo Tatum DO Primary Care Provider Active Start: November 07, 2024 End: November 07, 2024 Dr. Margo Tatum DO Referring Provider Active St art: November 07, 2024 End: November 07, 2024 CARMEN Colindres Attending Provider Active Start: November 07, 2024 End: November 07, 2024 Team Status: Active Member Role/Relationship Status Dates Dr. Margo Tatum DO Primary Care Provider Active Team Status: Active Member Role/Relationship Status Dates Mehnaz Laughlin MD Primary Care Provider Active S tart: November 12, 2011 Mehnaz Laughlin MD Family Provider Active Start: November 12, 2011 Team Status: Inactive Member Role/Relationship Status Dates Dr. Margo Tatum DO Primary Care Provider Active Start: August 29, 2024 End: August 29, 2024 Dr. Cr Ho MD Attending Provider Active S tart: August 29, 2024 End: August 29, 2024 Team Status: Inactive Member Role/Relationship Status Dates Dr. Margo Tatum DO Primary Care Provider Active Start: September 05, 2024 End: September 05, 2024 Dr. Cr Ho MD Attending Provider Active S tart: September 05, 2024 End: September 05, 2024 Team Status: Active Member Role/Relationship Status Dates Dr. Margo Tatum DO Primary Care Provider Active Start: September 09, 2024 Carlos Saleem MD Emergency Provider Active Star t: September 09, 2024 Dr. Francine Steele MD Admit Provider Active St art: September 09, 2024 Dr. Francine Steele MD Attending Provider Active Start: September 09, 2024 Dr. Francine Steele MD Other Provider Active St art: September 09, 2024 Team Status: Inactive Member Role/Relationship Status Dates Dr. Margo Tatum DO Primary Care Provider Active Start: September 09, 2024 End: September 11, 2024 Carlos Saleem MD Referring Provider Active Star t: September 09, 2024 End: September 11, 2024 Carlos Saleem MD Emergency Provider Active Star t: September 09, 2024 End: September 11, 2024 Dr. Francine Steele MD Admit Provider Active St art: September 09, 2024 End: September 11, 2024 Dr. Francine Steele MD Other Provider Active St art: September 09, 2024 End: September 11, 2024 Dr. Damaris Thibodeaux DO Attending Provider Active S tart: September 09, 2024 End: September 11, 2024 Dr. Jamie Manrique DO Other Provider Active Start: September 09, 2024 End: September 11, 2024 Team Status: Active Member Role/Relationship Status Dates Dr. Margo Tatum DO Primary Care Provider Active Start: September 10, 2024 Carlos Saleem MD Emergency Provider Active Star t: September 10, 2024 Dr. Francine Steele MD Admit Provider Active St art: September 10, 2024 Dr. Francine Steele MD Other Provider Active St art: September 10, 2024 Dr. Jamie Manrique DO Attending Provider Active Start: September 10, 2024 Dr. Jamie Manrique DO Other Provider Active Start: September 10, 2024 Team Status: Active Member Role/Relationship Status Dates Dr. Margo Tatum DO Primary Care Provider Active Start: September 11, 2024 Carlos Saleem MD Emergency Provider Active Star t: September 11, 2024 Dr. Francine Steele MD Admit Provider Active St art: September 11, 2024 Dr. Francine Steele MD Other Provider Active St art: September 11, 2024 Dr. Damaris Thibodeaux DO Attending Provider Active S tart: September 11, 2024 Dr. Damaris Thibodeaux DO Other Provider Active Start : September 11, 2024 Dr. Jamie Manrique DO Other Provider Active Start: September 11, 2024 Team Status: Inactive Member Role/Relationship Status Dates Dr. Margo Tatum DO Primary Care Provider Active Start: September 11, 2024 End: September 11, 2024 Dr. Cr Ho MD Attending Provider Active S tart: September 11, 2024 End: September 11, 2024 Team Status: Inactive Member Role/Relationship Status Dates Dr. Margo Tatum DO Primary Care Provider Active Start: September 12, 2024 End: September 12, 2024 Dr. Margo Tatum DO Referring Provider Active St art: September 12, 2024 End: September 12, 2024 CARMEN Colindres Attending Provider Active Start: September 12, 2024 End: September 12, 2024 Team Status: Inactive Member Role/Relationship Status Dates Dr. Margo Tatum DO Primary Care Provider Active Start: September 24, 2024 End: September 24, 2024 CARMEN Colindres Attending Provider Active Start: September 24, 2024 End: September 24, 2024 CARMEN Colindres Referring Provider Active Start: September 24, 2024 End: September 24, 2024 Team Status: Inactive Member Role/Relationship Status Dates Dr. Margo Tatum DO Primary Care Provider Active Start: September 25, 2024 End: September 25, 2024 Dr. Darline Solano MD Attending Provider Active Start: September 25, 2024 End: September 25, 2024 Dr. Darline Solano MD Referring Provider Active Start: September 25, 2024 End: September 25, 2024 Team Status: Inactive Member Role/Relationship Status Dates Dr. Margo Tatum DO Primary Care Provider Active Start: October 15, 2024 End: October 15, 2024 Dr. Arjun Ortez DO Attending Provider Active Start: October 15, 2024 End: October 15, 2024 Dr. Arjun Ortez DO Emergency Provider Active Start: October 15, 2024 End: October 15, 2024 Team Status: Inactive Member Role/Relationship Status Dates Dr. Margo Tatum DO Primary Care Provider Active Start: October 17, 2024 End: October 17, 2024 Dr. Cr Ho MD Attending Provider Active S tart: October 17, 2024 End: October 17, 2024 Team Status: Inactive Member Role/Relationship Status Dates Dr. Margo Tatum DO Primary Care Provider Active Start: November 07, 2024 End: November 07, 2024 Dr. Margo Tatum DO Referring Provider Active St art: November 07, 2024 End: November 07, 2024 CARMEN Colindres Attending Provider Active Start: November 07, 2024 End: November 07, 2024 Team Status: Active Member Role/Relationship Status Dates Dr. Margo Tatum DO Primary Care Provider Active Start: November 30, 2024 Dr. Allen Meraz DO Emergency Provider Active S tart: November 30, 2024 Dr. Suma Mathew MD Admit Provider Active Star t: November 30, 2024 Dr. Suma Mathew MD Attending Provider Active Start: November 30, 2024 PRN Active and Recently Administ ered Medications (unrecognized section and content) Medication Order 08/16/2022 08/17/2022 08/18/2022 Acetaminophen (TYLENOL) tablet 325 mg 325 mg, Oral, EVERY 6 HOURS NEEDED, Starting on Tue08/18/22 at 1322, Until Tue08/18/22 at 1949, Mild Pain, Maximum dose of acetaminophen is 4000 mg from all sources in 24 hours., Post-op/Post-Proc 1530 (Given - Provid er: Reena Hahn RN) ceFAZolin (ANCEF) injection (CANCELED) Intravenous, Administer over 3 Minutes, NEEDED, Starting on Tue08/18/22 at 1038, Until Tue08/18/22 at 1337, Intra-op/Intra-Proc 1038 (Given - Provid er: Edward Baker RN - Comment: Patient states reaction is some nausea) fentaNYL (SUBLIMAZE) injection (CANCELED) Intravenous, Administer over 2 Minutes, NEEDED, Starting on Tue08/18/22 at 1057, Until Tue08/18/22 at 1337, Intra-op/Intra-Proc 1057 (Given - Provid er: Edward Baker RN)1130 (Given - Provider: Edward Baker RN)1157 (Given - Provider: Edward Baker RN)1157 (Given - Provider: Edward Baker RN)1200 (Given - Provider: Edward Baker RN)1205 (Given - Provider: Edward Baker RN)1210 (Given - Provider: Edward Baker RN)1237 (Given - Provider: Ofelia Estrella RN)1250 (Given - Provider: Ofelia Estrella RN)1305 (Given - Provider: Edward Baker RN)1307 (Given - Provider: Edward Baker RN) Iohexol (OMNIPAQUE) 300 MG/ML vial (CANCELED) Intravenous, NEEDED, Starting on Tue08/18/22 at 1057, Until Tue08/18/22 at 1337, Intra-op/Intra-Proc 1057 (Given - Provid er: Edward Baker RN)1310 (Given - Provider: Delio Brothers MD) Lidocaine (XYLOCAINE) 10 mg/mL injection (CANCELED) Infiltration, NEEDED, Starting on Tue08/18/22 at 1129, Until Tue08/18/22 at 1337, Intra-op/Intra-Proc 1129 (Given - Provid er: Delio Brothers MD)1132 (Given - Provider: Delio Brothers MD)1136 (Given - Provider: Delio Brothers MD)1137 (Given - Provider: Delio Brothers MD)1139 (Given - Provider: Delio Brothers MD) Methohexital (BREVITAL) injection (CANCELED) NEEDED, Starting on Tue08/18/22 at 1158, Until Tue08/18/22 at 1337, Intra-op/Intra-Proc 1158 (Given - Provid er: Arielle Griffin MD) midazolam (VERSED) injection (CANCELED) Intravenous, NEEDED, Starting on Tue08/18/22 at 1057, Until Tue08/18/22 at 1337, Intra-op/Intra-Proc 1057 (Given - Provid er: Edward Baker RN)1130 (Given - Provider: Edward Baker RN)1157 (Given - Provider: Edward Baker RN)1157 (Given - Provider: Edward Baker RN)1159 (Given - Provider: Edward Baker RN)1205 (Given - Provider: Edward Baker RN)1211 (Given - Provider: Edward Baker RN)1237 (Given - Provider: Ofelia Estrella RN)1250 (Given - Provider: Ofelia Estrella RN)1305 (Given - Provider: Edward Baker RN)1307 (Given - Provider: Edward Baker RN) Ondansetron 4mg/2ml (ZOFRAN) injection 4 mg 4 mg, Intravenous, EVERY 4 HOURS NEEDED, Starting on Tue08/18/22 at 1322, Until Tue08/18/22 at 1949, Nausea / Vomiting, Post-op/Post-Proc Ondansetron 4mg/2ml (ZOFRAN) injection (CANCELED) Intravenous, NEEDED, Starting on Tue08/18/22 at 1229, Until Tue08/18/22 at 1337, Intra-op/Intra-Proc 1229 (Given - Provid er: Ofelia Estrella RN) oxyCODONE (ROXICODONE) tablet 5 mg(Linked Group 1) 5 mg, Oral, EVERY 4 HOURS NEEDED, Starting on Tue08/18/22 at 1322, Until Tue08/18/22 at 1949, Moderate Pain, Severe Pain, PRN for Moderate Pain. Use for Severe Pain if IV not available for use as initial dose. Higher dose may be administred if lower dose was previously documented as ineffective and did not result in adverse effects (RR<10, decrease in level of consciousness)., Post-op/Post-Proc oxyCODONE HCl (ROXICODONE) tablet 10 mg(Linked Group 1) 10 mg, Oral, EVERY 4 HOURS NEEDED, Starting on Tue08/18/22 at 1322, Until Tue08/18/22 at 194, Moderate Pain, Severe Pain, PRN for Moderate Pain. Use for Severe Pain if IV not available for use as initial dose. Higher dose may be administred if lower dose was previously documented as ineffective and did not result in adverse effects (RR<10, decrease in level of consciousness), Post-op/Post-Proc Sodium chloride 0.9% IV solution 500 mL Intravenous, at 20 mL/hr, ADMINISTER DIRECTED, Starting on Tue08/18/22 at 0806, Until Tue08/18/22 at 194, Per treatment plan, Start the morning of procedure., Pre-op/Pre-Proc 0841 ($$New Bag$$ - Provider: Reena Hahn RN) Vancomycin HCl in NaCl (Vancocin) 1,500 mg 290 ml premade IVPB (COMPLETED) 1,500 mg, Intravenous, Administer over 1 Hours, FLATWORK FOLDER TO PROCEDURE, 1 dose, Starting on Tue08/18/22 at 0000, Until Discontinued, Other, Preoperative antibiotic, Order should be timed for day of procedure. 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 Vancomycin is preferred agent for device implants, based on national, community and local ([facility]) MRSA rates., Pre-op/Pre-Proc 0840 ($$New Bag$$ - Provider: Reena Hahn RN) Linked Groups Order Group 1: oxyCODONE (ROXICODONE) [...] 1806 (Given - Provid er: Yris Rush) Reason for Visit (unrecogniz ed section and content) Reason Comments Post-Op Problem Chills FOR RECORDS PERTAINING TO PATIENTS WHO ARE [...] BE BASED ON THE PRIMARY CLINICAL RECORDS. [facility] [employer] [facility]. provides no warranty or guarantee of the accuracy or completeness of information in this document.
--- NOTE | 2024-11-30 20:00 | ECHOCS_ITS ---
Reason For Study Reason For Study: CHF Procedure This was a 2D Doppler, Color Flow transthoracic echocardiogram. The study was technically difficult. Contrast injection was performed. Exam performed portable in patient room. Left Ventricle Normal LV size. Mild concentric left ventricular hypertrophy. Moderate LV systolic dysfunction. Septal, inferior and anterior hypokinesis. Estimated LVEF 35-40%. Stage I diastolic dysfunction. Right Ventricle Normal right ventricle. ICD or pacer leads identified within the right ventricle. Atria Normal left atrium. ICD or pacer leads identified within the right atrium. Mitral Valve Moderate mitral annular calcification. Trivial mitral valve insufficiency. Tricuspid Valve Trivial tricuspid valve insufficiency. Unable to estimate RV systolic pressure due to insufficient tricuspid regurgitant envelope. Aortic Valve Trisinus/trileaflet aortic valve. Pulmonic Valve The pulmonic valve is not well visualized. Great Vessels Normal sized aortic root. Pericardium/Pleural No pericardial effusion. Medication Diluted definity 2ml given slow IV push to enhance endocardial definition. MMode/2D Measurements & Calculations LVIDd: 5.1 cm IVSd: 1.2 cm Ao root diam: 3.1 cm LVIDs: 5.0 cm LVPWd: 0.98 cm LA dimension: 3.8 cm RVDd: 3.1 cm FS: 1.2 % LAV(MOD-bp): 38.1 ml LVAd ap4: 36.9 cm2 LVAd ap2: 38.6 cm2 LAV(MOD-bp) Indexed: 18.7 ml/m2 LVLd ap4: 7.8 cm LVLd ap2: 7.9 cm LAV(MOD-sp2): 44.7 ml EDV(MOD-sp4): 142.3 ml EDV(MOD-sp2): 152.6 ml LAV(MOD-sp4): 31.0 ml EDV(sp4-el): 149.2 ml EDV(sp2-el): 159.5 ml LVAs ap4: 28.4 cm2 LVAs ap2: 30.2 cm2 LVLs ap4: 7.6 cm LVLs ap2: 7.8 cm ESV(MOD-sp4): 87.7 ml ESV(MOD-sp2): 96.5 ml ESV(sp4-el): 90.4 ml ESV(sp2-el): 99.4 ml EF(MOD-sp4): 38.4 % EF(MOD-sp2): 36.7 % EF(sp4-el): 39.4 % SV(MOD-sp4): 54.6 ml SV(MOD-sp2): 56.0 ml SV(sp4-el): 58.8 ml SI(MOD-sp4): 26.8 ml/m2 SI(MOD-sp2): 27.5 ml/m2 LA A4 area: 13.3 cm2 LA dimension(2D): 3.7 cm RA A4 area: 12.2 cm2 Doppler Measurements & Calculations MV E max keven: 111.6 cm/sec MV V2 max: 121.8 cm/sec Ao V2 max: 117.4 cm/sec MV max P.9 mmHg Ao max P.5 mmHg MV V2 mean: 70.5 cm/sec Ao V2 mean: 82.3 cm/sec MV mean P.4 mmHg Ao mean P.1 mmHg MV V2 VTI: 15.6 cm Ao V2 VTI: 19.7 cm AV (velocity ratio): 0.89 LV V1 max: 98.7 cm/sec LV V1 max P.9 mmHg LV V1 mean P.1 mmHg LV V1 mean: 66.1 cm/sec LV V1 VTI: 17.5 cm ECHO/Echo Complete W/ Contrast Interpretation Summary Mild concentric left ventricular hypertrophy. Moderate LV systolic dysfunction. Septal, inferior and anterior hypokinesis. Es timated LVEF 35-40%. Stage I diastolic dysfunction. Moderate mitral annular calcification. Ordering Physician: Suma Mathew Performed By: Tam Jimenez RCS
[2024-11-30 20:34] LABS: Bacteria 0 SEEN /hpf (None Seen); Mucous, Urine 0 SEEN /hpf (<or=2+); Red Blood Cells-Urine 0 SEEN /hpf (0-5); Squamous Epithelial Cells - UA 0 SEEN /hpf (5-10); White Blood Cells 0 SEEN /hpf (0-5)
[2024-11-30 20:43] LABS: Color, Urine Straw (Yellow); Glucose, Dipstick 100 mg/dl (Normal); Ketone-Dipstick Negative (Negative); Leukocyte Esterase-Dipstick Negative /ul (Negative); Nitrite-Dipstick Negative (Negative); Occult Blood-Urine Negative /ul (Negative); Protein-Dipstick 15 mg/dl (Negative); Urine Bilirubin Dipstick Negative (Negative); Urine Clarity Clear (Clear); Urine Urobilinogen Normal (Normal); Urine pH 6.5 (5.0 - 8.0)
[2024-11-30] MEDS: Methylprednisolone Sod Succ 40 MG/ML VIAL IV (21:11)
[2024-11-30] MEDS: Atorvastatin Calcium 80 MG Tablet PO (21:11)
[2024-11-30] MEDS: SACUBITRIL/VALSARTAN 97-103 MG TABLET 1 EACH PO (21:11)
[2024-11-30] MEDS: 0.9% Saline Lock 10 ML Syringe IV (21:11)
[2024-11-30] MEDS: APIXABAN 2.5 MG TABLET (WCH) PO (21:11)
[2024-11-30] MEDS: guaiFENesin 1,200 MG Tablet 1200 MG PO (21:11)
[2024-11-30] MEDS: Insulin Lispro 100 UNIT/ML INSULN.PEN SC (21:16)
[2024-11-30 22:11] LABS: Bedside Glucose 370 mg/dL (74-106)
[2024-12-01] VITALS (7 sets, daily range): BP systolic 123–152; BP diastolic 57–79; PULSE 69–104; RESP 16–18; TEMP 36.2–36.7; O2SAT 94–98; BMI 37.8
[2024-12-01] MEDS: Ipratropium/Albuterol Sulfate 3 ML AMPUL.NEB INHALATION ×3 (02:00→13:25)
[2024-12-01] MEDS: Methylprednisolone Sod Succ 40 MG/ML VIAL IV (06:49)
[2024-12-01] MEDS: 0.9% Saline Lock 10 ML Syringe IV (06:50)
[2024-12-01 07:24] LABS: Cholesterol 188 mg/dL (<=200); High Density Lipoprotein 82 mg/dL; Low Density Lipoprotein Calc. 89 mg/dL; Triglycerides 88 mg/dL; Very Low Density Lipoprotein 18 mg/dL (5-40)
[2024-12-01 07:25] LABS: Free T3 3.1 pg/mL (2.18-3.98); Thyroid Stim Hormone (TSH) 0.373 uIU/mL (0.300-4.200)
[2024-12-01] MEDS: Insulin Lispro 100 UNIT/ML INSULN.PEN SC (10:07)
[2024-12-01] MEDS: Insulin Lispro 100 UNIT/ML INSULN.PEN 36 UNIT SC (10:09)
[2024-12-01] MEDS: Pantoprazole Sodium 20 MG Tablet PO (10:16)
[2024-12-01] MEDS: Methimazole 5 MG Tablet 10 MG PO (10:16)
[2024-12-01] MEDS: APIXABAN 2.5 MG TABLET (WCH) PO (10:16)
[2024-12-01] MEDS: SACUBITRIL/VALSARTAN 97-103 MG TABLET 1 EACH PO (10:16)
[2024-12-01] MEDS: Clopidogrel Bisulfate 75 MG Tablet PO (10:16)
[2024-12-01] MEDS: guaiFENesin 1,200 MG Tablet 1200 MG PO (10:16)
[2024-12-01] MEDS: Isosorbide Mononitrate 30 MG Tablet PO (10:17)
[2024-12-01] MEDS: Carvedilol 25 MG Tablet PO (10:17)
[2024-12-01] MEDS: Spironolactone 50 MG Tablet PO (10:17)
[2024-12-01] MEDS: Furosemide 40 MG/4 ML Vial IV (10:18)
[2024-12-01] MEDS: Insulin Glargine-YFGN 100 UNIT/ML Pen 50 UNIT SC (10:18)
[2024-12-01 10:48] LABS: Bedside Glucose 405 mg/dL (74-106)
--- NOTE | 2024-12-01 12:14 | PCM.DC.SUM ---
Providers Date of Admission: 11/30/24 Date of Discharge: 12/01/24 Primary Care Physician: Dr. Margo Tatum DO Reason For Visit: INCREASED SOB Diagnosis Discharge Diagnosis (1) Shortness of breath: Status: Acute Code(s): R06.02 - Shortness of breath Plan 1. Acute on chronic congestive heart failure with reduced ejection fraction #2 chronic ischemic cardiomyopathy #3 paroxysmal atrial fibrillation #4 type 2 diabetes #5 coronary artery disease #6 chronic use of anticoagulant Medications at Discharge Home Medications BD Ultra-Fine [place] Pen Needle 32 gauge x /32 (pen needle, diabetic) #100 ea 07/29/22 diphenhydramine HCl 25 mg tablet 25 mg PO Q4H PRN Allergy Symptoms 08/06/22 hydrocodone-acetaminophen 5-325mg 5mg-325mg 1 tab PO BID PRN pain 08/06/22 naloxegol 25 mg tablet (Movantik) 25 mg PO QAM PRN pain 08/06/22 omeprazole magnesium 20 mg tablet,delayed release (Prilosec OTC) 20 mg PO DAILY reflux 08/06/22 promethazine 25 mg tablet 25 mg PO TID PRN Nausea And Vomiting 08/06/22 tizanidine 4 mg tablet 4 mg PO QHS muscle spasms 08/06/22 cholecalciferol (vitamin D3) 50 mcg (2,000 unit) capsule 1,000 unit PO DAILY vitamin 03/08/23 clopidogrel 75 mg tablet (Plavix) 75 mg PO DAILY anti platelet #90 tabs 05/16/23 atorvastatin 80 mg tablet See Rx Instructions .Route .COMPLEX cholesterol #360 TABLETS 06/09/23 isosorbide mononitrate 30 mg tablet,extended release 24 hr See Rx Instructions .Route .COMPLEX heart #360 TABLETS 06/09/23 blood-glucose,leaf stamper,cont (Dexcom G7 Marine Steam Fitter) #1 ea 10/10/23 apixaban 5 mg tablet (Eliquis) See Rx Instructions .Route .COMPLEX blood thinner #180 tabs 12/13/23 melatonin 10 mg capsule 10 mg PO HS PRN insomnia 12/13/23 sacubitril 97 mg-valsartan 103 mg tablet (Entresto) 1 tab PO BID heart #180 tabs 12/13/23 carvedilol 25 mg tablet 25 mg PO BID blood pressure #180 tabs 12/29/23 spironolactone 50 mg tablet 50 mg PO DAILY #90 TABLETS 03/20/24 methimazole 10 mg tablet 10 mg PO DAILY thyroid #90 tabs 07/10/24 insulin glargine-yfgn 100 unit/mL (3 mL) subcutaneous pen 50 unit (0.5 mL) subcut DAILY #0 mL 09/11/24 Dexcom G7 Sensor (blood-glucose sensor) #3 ea 09/17/24 insulin lispro 100 unit/mL subcutaneous pen (Humalog KwikPen (U-100) Insulin) 36 unit subcut TIDCM 10/15/24 dulaglutide 4.5 mg/0.5 mL subcutaneous pen injector (Trulicity) 4.5 mg (0.5 mL) subcut QWEEK #2 mL 11/07/24 albuterol sulfate 90 mcg/actuation aerosol inhaler (Ventolin HFA) 2 puff inhalation Q6H PRN shortness of breath or wheezing #6.7 grams 12/01/24 budesonide-formoterol HFA 160 mcg-4.5 mcg/actuation aerosol inhaler (Symbicort) 2 puff inhalation BID #10.2 grams 12/01/24 furosemide 20 mg tablet (Lasix) 60 mg (3 x 20 mg) PO DAILY #90 tabs 12/01/24 prednisone 20 mg tablet 20 mg PO BID #14 tabs 12/01/24 Hospital Course Operations None Procedures 2-D Echocardiogram Summary of Care Provided Minutes Spent on Discharge: 31 Hospital Course: This 53-year-old white female was seen in the emergency room at [facility] with shortness of breath which started earlier in the day. She also complained of a tightness across her chest, she has a history of COPD and coronary artery disease. Patient also has a pacer defibrillator and history of congestive heart failure. Workup in the emergency room included labs which showed elevated beta natruretic peptide, chest x-ray showed no obvious infiltrates, the patient did not require oxygen as her pulse ox was above 90% on room air. Patient was placed in observation status on PCU and placed on IV diuresis. She had an echocardiogram performed which showed reduced ejection fraction of 35 to 40%. On 12/01/2024, patient was seen and examined: On examination she appeared in good health and spirits, she does not appear to be in any distress. Vital signs as documented. Skin warm and dry and without overt rashes. Neck without JVD, thyroid appears normal, trachea is midline, neck is supple. Lungs clear, normal air movement was noted. Heart exam notable for regular rhythm, normal sounds and absence of murmurs, rubs or gallops. Abdomen unremarkable and without evidence of organomegaly, masses, or abdominal aortic enlargement, bowel sounds are present in all 4 quadrants, no abdominal tenderness was noted. Extremities nonedematous, no cyanosis was noted, no clubbing was noted. Neuro: Cranial nerves II through XII are grossly intact, no focal motor deficits were noted, sensation to light touch and pinprick is intact, motor exam 5/5 throughout. Psych: Patient is alert and oriented x3, she does not appear anxious or depressed, she does not appear agitated. Patient was felt to be stable for discharge home on 12/01/2024. Weight / BMI Weight Weight: 100.1 kg Body Mass Index (BMI) 37.8 ABG / Lab / Microbiology Data 11/30/24 16:05 11/30/24 16:05 Laboratory: Laboratory Results - last 24 hr 12/01/24 13:53: POC Glucose > 500 H* 12/01/24 13:54: POC Glucose > 500 H* 12/01/24 13:56: POC Glucose > 500 H* 12/01/24 13:57: POC Glucose > 500 H* Microbiology: Microbiology 11/30/24 20:22 Urine, Clean Catch Urine Culture - Final [facility] Poss Enterococcus sp 11/30/24 22:10 Mucosa - Nasopharyngeal Respiratory Panel (PCR) - Final 11/30/24 16:40 Mucosa - Nose SARS-CoV-2, Influenza & RSV (PCR) - Final Radiography Diagnostic Testing: Radiology Impression Chest X-Ray 11/30/24 16:55 IMPRESSION: Stable mild cardiomegaly. Reading Location: [id number] D/C Instructions DC O2, CPAP, BIPAP Needs Home O2 Discharge instructions: No Meaningful Use Info Meaningful Use Meaningful Use Diagnoses (Choose all that apply): CHF CHF MERRILL/ARB ordered at discharge?: Yes Documented LVEF (%): 35 Ischemic Stroke Statin Dosing Therapy Reference: STATIN DOSE THERAPY REFERENCE: * Patients > 75 years receive moderate or high dose statin therapy. * Patients 75 years or YOUNGER should receive HIGH intensity statin dose unless contraindicated. You will be required to document reason for non-treatment if statin daily dose does not meet guidelines. HIGH DOSE STATIN THERAPY DAILY Atorvastatin > than or = to 40 mg Rosuvastatin > than or = to 20 mg Amlodipine + Atorvastatin > than or = to 2.5/40 mg Ezetimibe + Simvastatin 10/80 mg Simvastatin 80mg Discharge Plan Admission Admit Date/Time: 11/30/24 19:04 Primary Reason for Your Visit: Exacerbation of COPD Attending Provider: Aidan Staples Primary Care Provider: Margo Tatum Consulting Providers: Suma Mathew Discharge Orders/Prescriptions Prescriptions: New furosemide [Lasix] 20 mg tablet 60 mg PO DAILY Qty: 90 0RF prednisone 20 mg tablet 20 mg PO BID Qty: 14 0RF albuterol sulfate [Ventolin HFA] 90 mcg/actuation HFA aerosol inhaler 2 puff inhalation Q6H PRN (Reason: shortness of breath or wheezing) Qty: 6.7 0RF budesonide-formoterol [Symbicort] 160-4.5 mcg/actuation HFA aerosol inhaler 2 puff inhalation BID Qty: 10.2 0RF Rx Instructions: Gargle with water and spit out water after use Continued Eliquis 5 mg tablet See Rx Instructions .ROUTE .COMPLEX Qty: 180 3RF Dose Instruction: take 1 tablet by mouth twice a day Patient Comments: since 08/25 Rx Instructions: take 1 tablet by mouth twice a day Trulicity 4.5 mg/0.5 mL pen injector 4.5 mg subcut QWEEK Qty: 2 3RF Patient Comments: PT TAKES ON THURSDAYS diphenhydramine HCl 25 mg Tablet 25 mg PO Q4H PRN (Reason: Allergy Symptoms) cholecalciferol (vitamin D3) 50 mcg (2,000 unit) capsule 1,000 unit PO DAILY Patient Comments: PT TAKES WHEN SHE REMEMBERS clopidogrel [Plavix] 75 mg tablet 75 mg PO DAILY Qty: 90 3RF atorvastatin 80 mg tablet See Rx Instructions .ROUTE .COMPLEX Qty: 360 0RF Dose Instruction: take 1 tablet by mouth at bedtime Rx Instructions: take 1 tablet by mouth at bedtime carvedilol 25 mg tablet 25 mg PO BID Qty: 180 3RF Rx Instructions: must administer with a meal/food Discontinued furosemide 40 mg Tablet 40 mg PO DAILY Qty: 30 1RF No Action melatonin 10 mg capsule 10 mg PO HS PRN (Reason: insomnia) Entresto 97-103 mg tablet 1 tab PO BID Qty: 180 3RF tizanidine 4 mg tablet 4 mg PO QHS promethazine 25 mg tablet 25 mg PO TID PRN (Reason: Nausea And Vomiting) hydrocodone-acetaminophen 5-325 mg tablet 1 tab PO BID PRN (Reason: pain) omeprazole magnesium [Prilosec OTC] 20 mg tablet,delayed release (DR/EC) 20 mg PO DAILY Movantik 25 mg tablet 25 mg PO QAM PRN (Reason: pain) Rx Instructions: must be taken on empty stomach; no food 1 hr after or 2-3 hrs before dose insulin glargine-yfgn 100 unit/mL (3 mL) Insulin Pen 50 unit subcut DAILY Qty: 0 0RF insulin lispro [Humalog KwikPen Insulin] 100 unit/mL Insulin Pen 36 unit subcut TIDCM (DME) pen needle, diabetic [BD Ultra-Fine [place] Pen Needle] 32 gauge x 5/32 needle See Rx Instructions .Route Qty: 100 5RF Rx Instructions: 4x/day isosorbide mononitrate 30 mg tablet extended release 24 hr See Rx Instructions .ROUTE .COMPLEX Qty: 360 0RF Dose Instruction: take 1 tablet by mouth once daily Rx Instructions: take 1 tablet by mouth once daily (DME) Dexcom G7 Marine Steam Fitter Misc See Rx Instructions .Route Qty: 1 0RF Rx Instructions: As directed spironolactone 50 mg tablet 50 mg PO DAILY Qty: 90 3RF methimazole 10 mg tablet 10 mg PO DAILY Qty: 90 1RF (DME) Dexcom G7 Sensor Device See Rx Instructions .Route Qty: 3 5RF Rx Instructions: 1 sensor q 14 days Referrals / Follow Up: Margo Tatum DO [Primary Care Provider] - Within 2 Weeks Disposition Disposition (needs filled in before D/C Order can be placed): Home, Self Care Charges/Coding Visit Charges Inpatient E&M: 85469 Disch Hosp >30min
--- NOTE | 2024-12-01 12:15 | DCINST_ITS ---
Discharge Instructions Diet Discharge Diet: 1800 Calorie Control Diet Dressing / Incision Discharge Activity: Return to Normal Activity Weight Bearing Status: Full weight bearing Follow Up Care Test Results: Test results from this visit will be discussed in further detail at your follow- up appointment, if applicable. Discharge Plan Admission Admit Date/Time: 11/30/24 19:04 Primary Reason for Your Visit: Exacerbation of COPD Attending Provider: Aidan Staples Primary Care Provider: Margo Tatum Consulting Providers: Suma Mathew Discharge Orders/Prescriptions Prescriptions: No Action melatonin 10 mg capsule 10 mg PO HS PRN (Reason: insomnia) Entresto 97-103 mg tablet 1 tab PO BID Qty: 180 3RF Eliquis 5 mg tablet See Rx Instructions .ROUTE .COMPLEX Qty: 180 3RF Dose Instruction: take 1 tablet by mouth twice a day Patient Comments: since 08/25 Rx Instructions: take 1 tablet by mouth twice a day Trulicity 4.5 mg/0.5 mL pen injector 4.5 mg subcut QWEEK Qty: 2 3RF Patient Comments: PT TAKES ON THURSDAYS tizanidine 4 mg tablet 4 mg PO QHS diphenhydramine HCl 25 mg Tablet 25 mg PO Q4H PRN (Reason: Allergy Symptoms) promethazine 25 mg tablet 25 mg PO TID PRN (Reason: Nausea And Vomiting) hydrocodone-acetaminophen 5-325 mg tablet 1 tab PO BID PRN (Reason: pain) omeprazole magnesium [Prilosec OTC] 20 mg tablet,delayed release (DR/EC) 20 mg PO DAILY Movantik 25 mg tablet 25 mg PO QAM PRN (Reason: pain) Rx Instructions: must be taken on empty stomach; no food 1 hr after or 2-3 hrs before dose furosemide 40 mg Tablet 40 mg PO DAILY Qty: 30 1RF insulin glargine-yfgn 100 unit/mL (3 mL) Insulin Pen 50 unit subcut DAILY Qty: 0 0RF insulin lispro [Humalog KwikPen Insulin] 100 unit/mL Insulin Pen 36 unit subcut TIDCM (DME) pen needle, diabetic [BD Ultra-Fine [place] Pen Needle] 32 gauge x 5/32 needle See Rx Instructions .Route Qty: 100 5RF Rx Instructions: 4x/day cholecalciferol (vitamin D3) 50 mcg (2,000 unit) capsule 1,000 unit PO DAILY Patient Comments: PT TAKES WHEN SHE REMEMBERS clopidogrel [Plavix] 75 mg tablet 75 mg PO DAILY Qty: 90 3RF atorvastatin 80 mg tablet See Rx Instructions .ROUTE .COMPLEX Qty: 360 0RF Dose Instruction: take 1 tablet by mouth at bedtime Rx Instructions: take 1 tablet by mouth at bedtime isosorbide mononitrate 30 mg tablet extended release 24 hr See Rx Instructions .ROUTE .COMPLEX Qty: 360 0RF Dose Instruction: take 1 tablet by mouth once daily Rx Instructions: take 1 tablet by mouth once daily (DME) Dexcom G7 Special Weapons And Tactics Officer Misc See Rx Instructions .Route Qty: 1 0RF Rx Instructions: As directed carvedilol 25 mg tablet 25 mg PO BID Qty: 180 3RF Rx Instructions: must administer with a meal/food spironolactone 50 mg tablet 50 mg PO DAILY Qty: 90 3RF methimazole 10 mg tablet 10 mg PO DAILY Qty: 90 1RF (DME) Dexcom G7 Sensor Device See Rx Instructions .Route Qty: 3 5RF Rx Instructions: 1 sensor q 14 days Referrals / Follow Up: Margo Tatum DO [Primary Care Provider] -
--- NOTE | 2024-12-01 12:33 | PCM.DC.SUM ---
Providers Date of Admission: 11/30/24 Date of Discharge: 12/01/24 Primary Care Physician: Dr. Margo Tatum DO Reason For Visit: INCREASED SOB Diagnosis Discharge Diagnosis (1) Shortness of breath: Status: Acute Code(s): R06.02 - Shortness of breath Medications at Discharge Home Medications BD Ultra-Fine [place] Pen Needle 32 gauge x 5/32 (pen needle, diabetic) #100 ea 07/29/22 diphenhydramine HCl 25 mg tablet 25 mg PO Q4H PRN Allergy Symptoms 08/06/22 hydrocodone-acetaminophen 5-325mg 5mg-325mg 1 tab PO BID PRN pain 08/06/22 naloxegol 25 mg tablet (Movantik) 25 mg PO QAM PRN pain 08/06/22 omeprazole magnesium 20 mg tablet,delayed release (Prilosec OTC) 20 mg PO DAILY reflux 08/06/22 promethazine 25 mg tablet 25 mg PO TID PRN Nausea And Vomiting 08/06/22 tizanidine 4 mg tablet 4 mg PO QHS muscle spasms 08/06/22 cholecalciferol (vitamin D3) 50 mcg (2,000 unit) capsule 1,000 unit PO DAILY vitamin 03/08/23 clopidogrel 75 mg tablet (Plavix) 75 mg PO DAILY anti platelet #90 tabs 05/16/23 atorvastatin 80 mg tablet See Rx Instructions .Route .COMPLEX cholesterol #360 TABLETS 06/09/23 isosorbide mononitrate 30 mg tablet,extended release 24 hr See Rx Instructions .Route .COMPLEX heart #360 TABLETS 06/09/23 blood-glucose,environmental services lead,cont (Dexcom G7 Biomedical Engineering Technician) #1 ea 10/10/23 apixaban 5 mg tablet (Eliquis) See Rx Instructions .Route .COMPLEX blood thinner #180 tabs 12/13/23 melatonin 10 mg capsule 10 mg PO HS PRN insomnia 12/13/23 sacubitril 97 mg-valsartan 103 mg tablet (Entresto) 1 tab PO BID heart #180 tabs 12/13/23 carvedilol 25 mg tablet 25 mg PO BID blood pressure #180 tabs 12/29/23 spironolactone 50 mg tablet 50 mg PO DAILY #90 TABLETS 03/20/24 methimazole 10 mg tablet 10 mg PO DAILY thyroid #90 tabs 07/10/24 insulin glargine-yfgn 100 unit/mL (3 mL) subcutaneous pen 50 unit (0.5 mL) subcut DAILY #0 mL 09/11/24 Dexcom G7 Sensor (blood-glucose sensor) #3 ea 09/17/24 insulin lispro 100 unit/mL subcutaneous pen (Humalog KwikPen (U-100) Insulin) 36 unit subcut TIDCM 10/15/24 dulaglutide 4.5 mg/0.5 mL subcutaneous pen injector (Trulicity) 4.5 mg (0.5 mL) subcut QWEEK #2 mL 11/07/24 albuterol sulfate 90 mcg/actuation aerosol inhaler (Ventolin HFA) 2 puff inhalation Q6H PRN shortness of breath or wheezing #6.7 grams 12/01/24 budesonide-formoterol HFA 160 mcg-4.5 mcg/actuation aerosol inhaler (Symbicort) 2 puff inhalation BID #10.2 grams 12/01/24 furosemide 20 mg tablet (Lasix) 60 mg (3 x 20 mg) PO DAILY #90 tabs 12/01/24 prednisone 20 mg tablet 20 mg PO BID #14 tabs 12/01/24 Weight / BMI Weight Weight: 100.1 kg Body Mass Index (BMI) 37.8 ABG / Lab / Microbiology Data 11/30/24 16:05 11/30/24 16:05 Laboratory: Laboratory Results - last 24 hr 11/30/24 16:05: WBC 7.3, RBC 3.97 L, Hgb 12.2, Hct 37.0, MCV 93.2, MCH 30.7, MCHC 33.0, RDW Std Deviation 47.7 H, RDW Coeff of Tomi 14.0, Plt Count 184, MPV 10.4, Immature Gran % (Auto) 0.300, Neut % (Auto) 61.9, Lymph % (Auto) 30.4, [place] % (Auto) 5.2, Eos % (Auto) 1.9, Baso % (Auto) 0.3, Absolute Neuts (auto) 4.5, Absolute Lymphs (auto) 2.22, Nucleated RBC % 0, D-Dimer Quant (PE/DVT) 0.49, Sodium 137, Potassium 4.4, Chloride 105, Carbon Dioxide 20.1 L, Anion Gap 11, BUN 23 H, Creatinine 0.85, Estim Creat Clear Calc 87.65, Est GFR (MDRD) Non-Af 81, BUN/Creatinine Ratio 26.3 H, Glucose 300 H, Calcium 8.4, Troponin T High Sens 7 D, NT pro BNP II 1366 H 11/30/24 20:22: Urine Color Straw, Urine Clarity Clear, Urine pH 6.5, Ur Specific [place] 1.010, Urine Protein 15 H, Urine Glucose (UA) 100 H, Urine Ketones Negative, Urine Occult Blood Negative, Urine Nitrite Negative, Urine Bilirubin Negative, Urine Urobilinogen Normal, Ur Leukocyte Esterase Negative, Urine RBC 0 SEEN, Urine WBC 0 SEEN, Ur Squamous Epith Cells 0 SEEN, Urine Bacteria 0 SEEN, Urine Mucus 0 SEEN 11/30/24 21:09: POC Glucose 370 H 12/01/24 05:43: Triglycerides 88, Cholesterol 188, LDL Cholesterol, Calc 89, VLDL Cholesterol 18, HDL Cholesterol 82, Cholesterol/HDL Ratio 2.30, TSH 0.373, Free T4 1.20, Free T3 pg/dL 3.1 12/01/24 10:05: POC Glucose 405 H Microbiology: Microbiology 11/30/24 22:10 Mucosa - Nasopharyngeal Respiratory Panel (PCR) - Final 11/30/24 16:40 Mucosa - Nose SARS-CoV-2, Influenza & RSV (PCR) - Final Radiography Diagnostic Testing: Radiology Impression Chest X-Ray 11/30/24 16:55 IMPRESSION: Stable mild cardiomegaly. Reading Location: [id number] D/C Instructions Discharge Diet: 1800 Calorie Control Diet Weight Bearing Status: Full weight bearing DC O2, CPAP, BIPAP Needs Home O2 Discharge instructions: No Meaningful Use Info Ischemic Stroke Statin Dosing Therapy Reference: STATIN DOSE THERAPY REFERENCE: * Patients > 75 years receive moderate or high dose statin therapy. * Patients 75 years or YOUNGER should receive HIGH intensity statin dose unless contraindicated. You will be required to document reason for non-treatment if statin daily dose does not meet guidelines. HIGH DOSE STATIN THERAPY DAILY Atorvastatin > than or = to 40 mg Rosuvastatin > than or = to 20 mg Amlodipine + Atorvastatin > than or = to 2.5/40 mg Ezetimibe + Simvastatin 10/80 mg Simvastatin 80mg Discharge Plan Admission Admit Date/Time: 11/30/24 19:04 Primary Reason for Your Visit: Exacerbation of COPD Attending Provider: Aidan Staples Primary Care Provider: Margo Tatum Consulting Providers: Suma Mathew Discharge Orders/Prescriptions Prescriptions: New furosemide [Lasix] 20 mg tablet 60 mg PO DAILY Qty: 90 0RF prednisone 20 mg tablet 20 mg PO BID Qty: 14 0RF albuterol sulfate [Ventolin HFA] 90 mcg/actuation HFA aerosol inhaler 2 puff inhalation Q6H PRN (Reason: shortness of breath or wheezing) Qty: 6.7 0RF budesonide-formoterol [Symbicort] 160-4.5 mcg/actuation HFA aerosol inhaler 2 puff inhalation BID Qty: 10.2 0RF Rx Instructions: Gargle with water and spit out water after use Continued Eliquis 5 mg tablet See Rx Instructions .ROUTE .COMPLEX Qty: 180 3RF Dose Instruction: take 1 tablet by mouth twice a day Patient Comments: since 08/25 Rx Instructions: take 1 tablet by mouth twice a day Trulicity 4.5 mg/0.5 mL pen injector 4.5 mg subcut QWEEK Qty: 2 3RF Patient Comments: PT TAKES ON THURSDAYS diphenhydramine HCl 25 mg Tablet 25 mg PO Q4H PRN (Reason: Allergy Symptoms) cholecalciferol (vitamin D3) 50 mcg (2,000 unit) capsule 1,000 unit PO DAILY Patient Comments: PT TAKES WHEN SHE REMEMBERS clopidogrel [Plavix] 75 mg tablet 75 mg PO DAILY Qty: 90 3RF atorvastatin 80 mg tablet See Rx Instructions .ROUTE .COMPLEX Qty: 360 0RF Dose Instruction: take 1 tablet by mouth at bedtime Rx Instructions: take 1 tablet by mouth at bedtime carvedilol 25 mg tablet 25 mg PO BID Qty: 180 3RF Rx Instructions: must administer with a meal/food Discontinued furosemide 40 mg Tablet 40 mg PO DAILY Qty: 30 1RF No Action melatonin 10 mg capsule 10 mg PO HS PRN (Reason: insomnia) Entresto 97-103 mg tablet 1 tab PO BID Qty: 180 3RF tizanidine 4 mg tablet 4 mg PO QHS promethazine 25 mg tablet 25 mg PO TID PRN (Reason: Nausea And Vomiting) hydrocodone-acetaminophen 5-325 mg tablet 1 tab PO BID PRN (Reason: pain) omeprazole magnesium [Prilosec OTC] 20 mg tablet,delayed release (DR/EC) 20 mg PO DAILY Movantik 25 mg tablet 25 mg PO QAM PRN (Reason: pain) Rx Instructions: must be taken on empty stomach; no food 1 hr after or 2-3 hrs before dose insulin glargine-yfgn 100 unit/mL (3 mL) Insulin Pen 50 unit subcut DAILY Qty: 0 0RF insulin lispro [Humalog KwikPen Insulin] 100 unit/mL Insulin Pen 36 unit subcut TIDCM (DME) pen needle, diabetic [BD Ultra-Fine [place] Pen Needle] 32 gauge x 5/32 needle See Rx Instructions .Route Qty: 100 5RF Rx Instructions: 4x/day isosorbide mononitrate 30 mg tablet extended release 24 hr See Rx Instructions .ROUTE .COMPLEX Qty: 360 0RF Dose Instruction: take 1 tablet by mouth once daily Rx Instructions: take 1 tablet by mouth once daily (DME) Dexcom G7 Biomedical Engineering Technician Misc See Rx Instructions .Route Qty: 1 0RF Rx Instructions: As directed spironolactone 50 mg tablet 50 mg PO DAILY Qty: 90 3RF methimazole 10 mg tablet 10 mg PO DAILY Qty: 90 1RF (DME) Dexcom G7 Sensor Device See Rx Instructions .Route Qty: 3 5RF Rx Instructions: 1 sensor q 14 days Referrals / Follow Up: Margo Tatum DO [Primary Care Provider] - Within 2 Weeks Disposition Disposition (needs filled in before D/C Order can be placed): Home, Self Care
[2024-12-03 18:09] LABS: Bedside Glucose > 500 mg/dL (74-106)
[2024-12-03 18:09] LABS: Bedside Glucose > 500 mg/dL (74-106)
[2024-12-03 18:09] LABS: Bedside Glucose > 500 mg/dL (74-106)
[2024-12-03 18:09] LABS: Bedside Glucose > 500 mg/dL (74-106)
== END 2024-12-01 14:09 | disposition home or self-care (01) ==
LOC: ED 18:56 → PCU 19:14
PROVIDERS: Admitting Provider Internal Medicine; Emergency Provider Emergency Medicine; PCP Family Medicine; Visit Provider Internal Medicine
DX: I11.0 Hypertensive heart disease with heart failure (principal); I50.42 Chronic combined systolic (congestive) and diastolic (congestive) heart failure; J44.89 Other specified chronic obstructive pulmonary disease; I48.0 Paroxysmal atrial fibrillation; I42.8 Other cardiomyopathies; E11.9 Type 2 diabetes mellitus without complications; Z79.4 Long term (current) use of insulin; Z87.891 Personal history of nicotine dependence; Z82.49 Family history of ischemic heart disease and other diseases of the circulatory system; I25.10 Atherosclerotic heart disease of native coronary artery without angina pectoris; Z79.02 Long term (current) use of antithrombotics/antiplatelets; Z79.01 Long term (current) use of anticoagulants; E78.5 Hyperlipidemia, unspecified; Z79.85 Long-term (current) use of injectable non-insulin antidiabetic drugs; I49.3 Ventricular premature depolarization; Z95.810 Presence of automatic (implantable) cardiac defibrillator; Z79.899 Other long term (current) drug therapy; Z95.5 Presence of coronary angioplasty implant and graft; K21.9 Gastro-esophageal reflux disease without esophagitis; G47.33 Obstructive sleep apnea (adult) (pediatric); E05.90 Thyrotoxicosis, unspecified without thyrotoxic crisis or storm
CPT/HCPCS: 96360; 36415; 71045; 80048; 80061; 81001; 82962; 83880; 84439; 84443; 84481; 84484; 85025; 85379; 87086; 87088; 87631; 87633; 93005; 93306; 94640; 94668; 96374; 96375; 96376; 99221; 99285; Q9957; A4216; C8929; G0378; J1938

== ENCOUNTER 2024-12-06 17:12 | Emergency (ER) | payer OTHER, SELFPAY ==
[2024-01-03 09:13] VITALS: BMI 35.5
[2024-12-06 17:14] VITALS: BP 165/78; PULSE 88; RESP 26; TEMP 36.6; O2SAT 99; BMI 37.3
[2024-12-06 18:51] LABS: Hematocrit 40.8 % (37-47); Hemoglobin 13.3 g/dL (12.0-15.0); Immature Granulocytes Count 0.070 X10^3/uL (0.0-0.0); Mean Corp Hgb Conc 32.6 g/dL (32-36); Mean Corpuscular Volume 93.6 fL (81-99); Mean Platelet Vol. 10.9 fl (6.2-12.0); NRBC Flagged by Analyzer 0 % (0-5); Platelet Count 234 K/mm3 (150-450); RBC Distribution Width CV 14.1 % (11.6-14.6); RBC Distribution Width SD 48.6 fl (35.1-43.9); Red Blood Count 4.36 M/mm3 (4.2-5.4); White Blood Count 10.2 K/mm3 (4.4-11.0)
[2024-12-06 19:12] VITALS: BP 118/104; PULSE 120; RESP 22
[2024-12-06 19:36] LABS: Anion Gap 12 (5-15); BUN 32 mg/dL (4-19); BUN/Creat Ratio 38.3 RATIO (10-20); Calcium,Total 8.8 mg/dL (7.6-11.0); Carbon Dioxide 25.1 mmol/L (21.0-32.0); Chloride 100 mmol/L (98-108); Estimated Creatinine Clearance 87.34 ml/min (50-250); Glucose 224 mg/dL (70-99); Potassium 3.9 mmol/L (3.3-5.1)
[2024-12-06 19:38] VITALS: PULSE 87; RESP 16
[2024-12-06 20:00] LABS: Pro- Brain NATRIURETIC PEPTIDE 507 pg/mL (<=900); Troponin T High Sensitivity 7 ng/L (<=14)
[2024-12-06 21:08] VITALS: BP 101/72; PULSE 79; RESP 16; TEMP 36.9; O2SAT 97
[2024-12-06 21:09] LABS: Troponin T High Sens 2 HR < 6 ng/L (<=14)
== END 2024-12-06 21:09 | disposition home or self-care (01) ==
PROVIDERS: Emergency Provider Emergency Medicine; PCP Family Medicine; Referring Provider Emergency Medicine; Visit Provider Emergency Medicine
DX: J44.1 Chronic obstructive pulmonary disease with (acute) exacerbation (principal); I11.0 Hypertensive heart disease with heart failure; I50.22 Chronic systolic (congestive) heart failure; I48.0 Paroxysmal atrial fibrillation; E11.9 Type 2 diabetes mellitus without complications; Z79.4 Long term (current) use of insulin; I25.10 Atherosclerotic heart disease of native coronary artery without angina pectoris; I25.2 Old myocardial infarction; E78.5 Hyperlipidemia, unspecified; Z95.5 Presence of coronary angioplasty implant and graft; Z79.01 Long term (current) use of anticoagulants; Z79.02 Long term (current) use of antithrombotics/antiplatelets; Z79.51 Long term (current) use of inhaled steroids; Z79.85 Long-term (current) use of injectable non-insulin antidiabetic drugs; Z79.899 Other long term (current) drug therapy; Z86.16 Personal history of COVID-19; Z87.891 Personal history of nicotine dependence
CPT/HCPCS: 71046; 80048; 83880; 84484; 85025; 93005; 94640; 96374; 99283; A4216

== ENCOUNTER → 2024-12-11 | Outpatient (CLI) | payer OTHER, SELFPAY ==
[2024-01-03 09:13] VITALS: BMI 35.5
[2024-12-11 11:39] LABS: Pro- Brain NATRIURETIC PEPTIDE 1648 pg/mL (<=900)
== END | disposition home or self-care (01) ==
LOC: LAB 10:27
PROVIDERS: PCP Family Medicine; Referring Provider Internal Medicine Critical Care Medicine; Visit Provider Internal Medicine Critical Care Medicine
DX: R06.09 Other forms of dyspnea (principal)
CPT/HCPCS: 36415; 83880

== ENCOUNTER → 2024-12-18 | Outpatient (CLI) | payer OTHER, SELFPAY ==
[2024-01-03 09:13] VITALS: BMI 35.5
== END | disposition home or self-care (01) ==
PROVIDERS: PCP Family Medicine; Referring Provider Internal Medicine Critical Care Medicine; Visit Provider Internal Medicine Critical Care Medicine
DX: R06.09 Other forms of dyspnea (principal)
CPT/HCPCS: 94060; 94726; 94729

== ENCOUNTER → 2024-12-27 | Outpatient (CLI) | payer OTHER, SELFPAY ==
[2024-01-03 09:13] VITALS: BMI 35.5
[2024-12-27 09:08] VITALS: PULSE 75; PULSE 85; PULSE 86; PULSE 87; PULSE 88; O2SAT 95; O2SAT 96; O2SAT 97; O2SAT 98
--- NOTE | 2024-12-28 11:13 | PCM.PSN.6M ---
PSN 6 Minute Walk Test 6 Minute Walk Test 6 Minute Walk Test: 6 Minute Walk Test PSN:6-Minute Walk Test Start: 12/27/24 09:08 Freq: Status: Active Protocol: [id number] Document 12/27/24 09:08 [facility] (Rec: 12/27/24 09:43 [facility] [id number]) 6 Minute Walk Test Date Performed 12/27/24 Time Performed 08:15 Height 5 ft 4 in Weight: 220 lb Weight in Pounds 220.[address]: [email or web address] Assistive device None used: Pre-test Oxygen Delivery Room Air Method Pulse Ox (%) 98 Pulse Rate (60-100 75 beats/min) Dyspnea King Scale ( 3 0-10) Exertion King Scale 6 (6-20) Reported Symptoms Increased Work of Breathing 1st minute Oxygen Delivery Room Air Method Pulse Ox (%) 95 Pulse Rate (60-100 85 beats/min) Dyspnea King Scale ( 4 0-10) Number of Rests 0 Taken Reported Symptoms Increased Work of Breathing 2nd minute Oxygen Delivery Room Air Method Pulse Ox (%) 96 Pulse Rate (60-100 85 beats/min) Dyspnea King Scale ( 5 0-10) Exertion King Scale 8 (6-20) Number of Rests 1 Taken Reported Symptoms Increased Work of Breathing 3rd minute Oxygen Delivery Room Air Method Pulse Ox (%) 96 Pulse Rate (60-100 87 beats/min) Dyspnea King Scale ( 4 0-10) Number of Rests 0 Taken Reported Symptoms Increased Work of Breathing 4th minute Oxygen Delivery Room Air Method Pulse Ox (%) 95 Pulse Rate (60-100 88 beats/min) Dyspnea King Scale ( 5 0-10) Exertion King Scale 9 (6-20) Number of Rests 1 Taken Reported Symptoms Increased Work of Breathing 5th minute Oxygen Delivery Room Air Method Pulse Ox (%) 96 Pulse Rate (60-100 86 beats/min) Dyspnea King Scale ( 4 0-10) Number of Rests 0 Taken Reported Symptoms Increased Work of Breathing 6th minute Oxygen Delivery Room Air Method Pulse Ox (%) 96 Pulse Rate (60-100 88 beats/min) Dyspnea King Scale ( 5 0-10) Number of Rests 0 Taken Reported Symptoms Increased Work of Breathing Post-test Oxygen Delivery Room Air Method Pulse Ox (%) 97 Pulse Rate (60-100 85 beats/min) Dyspnea King Scale ( 3 0-10) Reported Symptoms Increased Work of Breathing Full Laps Walked 12 Partial Lap, Number 17 of Tiles Walked Total Distance 725 Walked (ft) Interpretation Interpretation: The patient ambulated 725 feet over the course of 6 minutes beginning on room air without assistive devices. Pretesting oxygen saturation was noted to be 98% on room air. With ambulation, the jayde oxygen saturation was 95%. There was no significant exertional oxygen desaturation. Recommendations Recommendations: There is no indication for the use of supplemental oxygen at this time.
== END | disposition home or self-care (01) ==
LOC: PSN 08:09
PROVIDERS: PCP Family Medicine; Referring Provider Internal Medicine Critical Care Medicine; Visit Provider Internal Medicine Critical Care Medicine
DX: R06.09 Other forms of dyspnea (principal)
CPT/HCPCS: 94618

== ENCOUNTER 2025-01-11 14:07 | Emergency (ER) | payer OTHER, SELFPAY ==
[2024-01-03 09:13] VITALS: BMI 35.5
[2025-01-11 14:07] VITALS: BP 143/114; PULSE 74; RESP 18; TEMP 36.6; O2SAT 100; BMI 36.8
--- NOTE | 2025-01-11 14:28 | EKG12_ITS ---
Test Reason : CP Blood Pressure : */* mmHG Vent. Rate : 67 BPM Atrial Rate : 67 BPM P-R Int : 162 ms QRS Dur : 162 ms QT Int : 506 ms P-R-T Axes : 27 128 29 degrees QTcB Int : 534 ms Atrial-sensed ventricular-paced rhythm with occasional AV dual-paced complexes and with occasional Premature ventricular complexes Biventricular pacemaker detected Abnormal ECG Confirmed by JANAY GEE, JAMEL ([id number]), department editor GUILLERMO LAROSE ([id number]) on 01/14/2025 1:06:28 PM Referred By: CELINE/CLEO Confirmed By: JAMEL GUSTAFSON MD
--- NOTE | 2025-01-11 14:36 | ED.VIS.CHEST ---
HPI <WARD Villareal - Last Filed: 01/11/25 18:55> History of Present Illness Chief Complaint: Chest Pain Narrative Narrative: 54-year-old female PMH of HTN, HLD, DM2, CAD with 1 stent, CHF, A-fib on Eliquis, ICD presents with chest pain. Yesterday she started having episodes of chest heaviness lasting approximately 20 seconds each occurring every 15 minutes. It happened without pattern, sometimes waking her from sleep, sometimes at rest, sometimes while walking around. Nothing she did made it better or worse. It is occurring more frequently today every couple minutes prompting her to come in. She has no fever, chills, nausea, vomiting, abdominal pain, or cough. She is a former smoker from around - [facility] she has been told she might have COPD. She is seeing a mixer machine feeder for an undiagnosed lung disease workup. She is compliant with her Eliquis for A-fib. She has no history of DVT/PE. PFSH <WARD Villareal - Last Filed: 01/11/25 18:55> [facility] Medical History Shortness of breath Chronic anticoagulation Pacemaker Hypothyroidism Chronic pain Asthma ICD (implantable cardioverter-defibrillator) in place Angina pectoris TRAE (acute kidney injury) Hypokalemia Hyperglycemia History of COPD History of NC (myocardial infarction) Antiplatelet or antithrombotic long-term use Anticoagulant long-term use Presence of cardiac 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 therapy defibrillator (HALFTONE OPERATOR-D) Diabetes Atrial fibrillation Coronary artery disease Hypertension Paroxysmal atrial fibrillation Hyperthyroidism Vomiting Hirsutism Chronic nausea Non-ST elevation (NSTEMI) myocardial infarction Difficult intubation Syncope Thyroid nodule Kidney stones Former smoker COPD (chronic obstructive pulmonary disease) Irregular heart beat Myocardial infarct Seizures COVID-19 virus infection Cardiomyopathy, ischemic Atherosclerotic heart disease of [place] coronary artery without angina pectoris HFrEF (heart failure with reduced ejection fraction) Obesity Left bundle branch block (LBBB) Non-ischemic cardiomyopathy History of non-ST elevation myocardial infarction (NSTEMI) (09/08/21) Hyperglycemia due to type 2 diabetes mellitus Chronic low back pain Type 2 diabetes mellitus Hyperlipidemia Benign hypertension Home Medications ?Medication ?Instructions ?Recorded ?Last Taken ?Type BD Ultra-Fine [place] Pen Needle 32 #100 ea 07/29/22 Unknown Rx gauge x (pen needle, diabetic) diphenhydramine HCl 25 mg tablet 25 mg PO Q4H PRN Allergy Symptoms 08/06/22 10/14/24 History hydrocodone-acetaminophen 5-325mg 1 tab PO BID PRN pain 08/06/22 10/14/24 History 5mg-325mg naloxegol 25 mg tablet (Movantik) 25 mg PO QAM PRN pain 08/06/22 Unknown History omeprazole magnesium 20 mg 20 mg PO DAILY reflux 08/06/22 10/15/24 History tablet,delayed release (Prilosec OTC) promethazine 25 mg tablet 25 mg PO TID PRN Nausea And 08/06/22 Unknown History Vomiting tizanidine 4 mg tablet 4 mg PO QHS muscle spasms 08/06/22 10/14/24 History cholecalciferol (vitamin D3) 50 1,000 unit PO DAILY vitamin 03/08/23 01/19/24 History mcg (2,000 unit) capsule clopidogrel 75 mg tablet (Plavix) 75 mg PO DAILY anti platelet #90 05/16/23 10/15/24 Rx tabs atorvastatin 80 mg tablet See Rx Instructions .Route 06/09/23 10/14/24 Rx .COMPLEX cholesterol #360 TABLETS isosorbide mononitrate 30 mg See Rx Instructions .Route 06/09/23 10/15/24 Rx tablet,extended release 24 hr .COMPLEX heart #360 TABLETS blood-glucose,chemical lab technician,cont #1 ea 10/10/23 Unknown Rx (Dexcom G7 Structural Iron Worker) apixaban 5 mg tablet (Eliquis) See Rx Instructions .Route 12/13/23 10/15/24 Rx .COMPLEX blood thinner #180 tabs melatonin 10 mg capsule 10 mg PO HS PRN insomnia 12/13/23 Unknown History sacubitril 97 mg-valsartan 103 mg 1 tab PO BID heart #180 tabs 12/13/23 10/15/24 Rx tablet (Entresto) carvedilol 25 mg tablet 25 mg PO BID blood pressure #180 12/29/23 10/15/24 Rx tabs spironolactone 50 mg tablet 50 mg PO DAILY #90 TABLETS 03/20/24 10/15/24 Rx methimazole 10 mg tablet 10 mg PO DAILY thyroid #90 tabs 07/10/24 10/15/24 Rx insulin glargine-yfgn 100 unit/mL 50 unit (0.5 mL) subcut DAILY #0 mL 09/11/24 10/15/24 Rx (3 mL) subcutaneous pen Dexcom G7 Sensor (blood-glucose #3 ea 09/17/24 Unknown Rx sensor) insulin lispro 100 unit/mL 36 unit subcut TIDCM 10/15/24 10/15/24 History subcutaneous pen (Humalog KwikPen (U-100) Insulin) dulaglutide 4.5 mg/0.5 mL 4.5 mg (0.5 mL) subcut QWEEK #2 mL 11/07/24 Unknown Rx subcutaneous pen injector (Trulicity) albuterol sulfate 90 mcg/actuation 2 puff inhalation Q6H PRN 12/01/24 Unknown Rx aerosol inhaler (Ventolin HFA) shortness of breath or wheezing #6.7 grams budesonide-formoterol HFA 160 2 puff inhalation BID #10.2 grams 12/01/24 Unknown Rx mcg-4.5 mcg/actuation aerosol inhaler (Symbicort) furosemide 20 mg tablet (Lasix) 60 mg (3 x 20 mg) PO DAILY #90 tabs 12/01/24 Unknown Rx Allergy/AdvReac Type Severity Reaction Status Date / Time amoxicillin trihydrate (From AdvReac Vomiting Verified 01/11/25 14:08 Augmentin) potassium clavulanate (From AdvReac Vomiting Verified 01/11/25 14:08 Augmentin) Family History Father Myocardial infarction Cancer prostate, leukemia Agent orange exposure Diabetes Sister Diabetes COPD (chronic obstructive pulmonary disease) Mother CVA (cerebral vascular accident) Hypertension Surgical History History of bladder surgery (~09/2023) History of cholecystectomy History of appendectomy History of coronary artery stent placement (05/19/21) Status post insertion of nerve stimulator History of laparoscopy History of tonsillectomy History of cholecystectomy (1991) History of hysterectomy History of left heart catheterization (09/14/21) History of back surgery Social History household members: significant other current occupational status: employed Smoking Status: Former smoker how long ago did patient quit smoking: Quit 1990, smoke 2 ppd since teen until quit. alcohol intake: current alcohol intake frequency: holidays/special occasions only substance use type: does not use caffeine: Yes ROS <WARD Villareal - Last Filed: 01/11/25 18:55> ROS ED ROS Narrative Constitutional: Negative for fever, chills, malaise. CVS: Positive for chest pain. No palpitations or syncope. Respiratory: Negative for shortness of breath, cough. GI: Negative for abdominal pain, nausea, vomiting, diarrhea. EXAM <WARD Villareal - Last Filed: 01/11/25 18:55> Physical Exam Narrative Exam Narrative: CONST: Patient sitting in no acute distress. EYES: Normal inspection. NECK: Normal inspection. RESP: No respiratory distress, CTAB. CVS: Regular rate and rhythm, no murmur, no gallop. ABD: Soft and nontender, no guarding or rebound, nondistended. SKIN: Color normal, no rash, warm, dry, intact. EXTREMITIES: Normal appearance, no pedal edema. NEURO: Alert and answering questions appropriately. PSYCH: Normal affect. Const Vital Signs: 01/11/25 14:07 01/11/25 14:28 01/11/25 15:28 Temperature 98 F Temperature Source Oral Pulse Rate 74 79 Respiratory Rate 18 18 Blood Pressure 143/114 H 145/60 H Blood Pressure Mean 123 88 Pulse Ox 100 100 Oxygen Delivery Method Room Air Room Air Room Air 01/11/25 16:06 01/11/25 16:59 01/11/25 17:57 Temperature Temperature Source Pulse Rate 72 72 70 Respiratory Rate 18 18 18 Blood Pressure 145/60 H 101/60 134/81 H Blood Pressure Mean 88 73 98 Pulse Ox 98 98 98 Oxygen Delivery Method Room Air Room Air Room Air 01/11/25 18:49 Temperature 98.0 F Temperature Source Pulse Rate 71 Respiratory Rate 18 Blood Pressure 151/69 H Blood Pressure Mean 96 Pulse Ox 100 Oxygen Delivery Method <Dr. Tam Robins DO - Last Filed: 01/11/25 23:47> Physical Exam Const Vital Signs: 01/11/25 14:07 01/11/25 14:28 01/11/25 15:28 Temperature 98 F Temperature Source Oral Pulse Rate 74 79 Respiratory Rate 18 18 Blood Pressure 143/114 H 145/60 H Blood Pressure Mean 123 88 Pulse Ox 100 100 Oxygen Delivery Method Room Air Room Air Room Air 01/11/25 16:06 01/11/25 16:59 01/11/25 17:57 Temperature Temperature Source Pulse Rate 72 72 70 Respiratory Rate 18 18 18 Blood Pressure 145/60 H 101/60 134/81 H Blood Pressure Mean 88 73 98 Pulse Ox 98 98 98 Oxygen Delivery Method Room Air Room Air Room Air 01/11/25 18:49 Temperature 98.0 F Temperature Source Pulse Rate 71 Respiratory Rate 18 Blood Pressure 151/69 H Blood Pressure Mean 96 Pulse Ox 100 Oxygen Delivery Method MDM <WARD Villareal - Last Filed: 01/11/25 18:55> [facility] Narrative Medical decision making narrative: Differential includes but not limited to GERD, PUD, esophageal spasm, ACS, dissection 54-year-old female is presenting with episodes of chest pain lasting 20 seconds occurring multiple times throughout the day x 2 days. She appears well and nontoxic vitals are stable. Normal cardiopulmonary [place]. Abdomen soft, nontender. Although this sounds atypical for cardiac pain she does have significant risk factors so workup was undertaken. CBC and BMP are unremarkable except for glucose of 370 consistent with diabetes. No signs of DKA. Alk phos minimally elevated at 110 with normal liver enzymes and lipase. EKG is a paced rhythm and troponin x 2 is 7 which rules out ACS. CTA shows no acute process. Her pacemaker was interrogated and shows no acute events. She had improvement in pain after IV morphine, Zofran, Pepcid, and then later Toradol. The etiology of her chest pain is not clear and I recommended she follow-up with her PCP or paint tester but was instructed to return if symptoms worsen or chest pain is prolonged. She expressed understanding was discharged in stable condition. External records reviewed: 01/20/2024 cardiac catheterization, mild nonobstructive CAD, widely patent prior stent, no significant aortic stenosis, normal LVEDP. History & Record Review Discussion w/independent historian: Patient Additional record(s) reviewed:: Prior outpatient record, Prior ED visit and Prior labs Lab Data Attestation: I reviewed the patient's lab results. Labs: Laboratory Results - last 24 hr 01/11/25 01/11/25 15:20 17:24 WBC 5.3 RBC 4.41 Hgb 13.4 Hct 39.6 MCV 89.8 MCH 30.4 MCHC 33.8 RDW Std Deviation 44.3 H RDW Coeff of Tomi 13.6 Plt Count 176 MPV 10.9 Immature Gran % (Auto) 0.200 Neut % (Auto) 52.8 Lymph % (Auto) 39.7 Wilcox % (Auto) 6.2 Eos % (Auto) 0.9 Baso % (Auto) 0.2 Absolute Neuts (auto) 2.8 Absolute Lymphs (auto) 2.10 Nucleated RBC % 0 Sodium 134 Potassium 3.6 Chloride 98 Carbon Dioxide 22.6 Anion Gap 13 BUN 21 H Creatinine 0.94 Estim Creat Clear Calc 76.58 Est GFR (MDRD) Non-Af 71 BUN/Creatinine Ratio 21.8 H Glucose 370 H Calcium 9.6 Total Bilirubin 0.70 AST 19 ALT 20 Alkaline Phosphatase 110 H Troponin T High Sens 7 Troponin T Hi Sens 2 Hr 7 Total Protein 7.4 Albumin 4.2 Globulin 3.3 Albumin/Globulin Ratio 1.3 Lipase 39 Radiography Diagnostic Testing: Clinical Impression(s) from Imaging Studies Chest X-Ray 01/11/25 15:35 IMPRESSION: Cardiomegaly with vascular congestion. No acute airspace disease. Reading Location: [facility] Chest CTA 01/11/25 15:44 IMPRESSION: 1. Mild cardiomegaly. Prior cardiac interventions as described. 2. No pulmonary arterial emboli. 3. No thoracic aortic aneurysm or dissection. 4. No acute airspace disease. 5. Heterogeneous nodular thyroid gland; see prior thyroid ultrasound. Reading Location: [facility] ED attending interpretation of 2 view chest x-ray shows cardiomegaly, no acute infiltrate. <Dr. Tam Robins, DO - Last Filed: 01/11/25 23:47> [facility] Narrative Medical decision making narrative: Differential includes but not limited to GERD, PUD, esophageal spasm, ACS, dissection 54-year-old female is presenting with episodes of chest pain lasting 20 seconds occurring multiple times throughout the day x 2 days. She appears well and nontoxic vitals are stable. Normal cardiopulmonary [place]. Abdomen soft, nontender. Although this sounds atypical for cardiac pain she does have significant risk factors so workup was undertaken. CBC and BMP are unremarkable except for glucose of 370 consistent with diabetes. No signs of DKA. Alk phos minimally elevated at 110 with normal liver enzymes and lipase. EKG is a paced rhythm and troponin x 2 is 7 which rules out ACS. CTA shows no acute process. Her pacemaker was interrogated and shows no acute events. She had improvement in pain after IV morphine, Zofran, Pepcid, and then later Toradol. The etiology of her chest pain is not clear and I recommended she follow-up with her PCP or paint tester but was instructed to return if symptoms worsen or chest pain is prolonged. She expressed understanding was discharged in stable condition. External records reviewed: 01/20/2024 cardiac catheterization, mild nonobstructive CAD, widely patent prior stent, no significant aortic stenosis, normal LVEDP. Supervisory Physician Note Patient was seen and examined with the Advanced Practice Provider. Nursing notes and vital signs have been reviewed. Pertinent old records have been reviewed. I agree with the essential elements of the DARRION's history, physical exam, assessment, and plan. The differential diagnosis and management options were discussed with the DARRION. I participated in determining and agree with the management, procedures, final impression and disposition as documented. See changes noted by me. Please see addendum or separate note for any additional details. Gen: A&O x3, NAD Head: Normocephalic, atraumatic Eyes: No sclera icterus, conjunctiva clear ENT: Moist mucous membranes Neck: Trachea midline, No JVD CV: RRR, no murmurs, no peripheral edema Resp: Lungs CTA BL, no w/r/c GI: Abd soft, non-distended, non-tender, no r/r/g Musc: Full ROM, no deformity Skin: Warm, dry Neuro: Alert, oriented, grossly intact, sensation intact Psych: Cooperative, appropriate mood and affect 54-year-old female with past medical history of HTN, HLD, DM2, CAD with PCI, CHF, A-fib on Eliquis, ICD presents for evaluation of chest pain. Symptoms have been ongoing for several days and episodic. Has not missed any doses of her Eliquis. EKG shows paced rhythm without any acute ischemic changes. Chest x-ray without pneumonia, large effusion, pneumothorax. ICD in place with cardiomegaly and mild vascular congestion. EKG and chest x-ray personally viewed interpreted by me, ED physician. Radiology in agreement. CBC unremarkable. CMP relatively unremarkable. Lipase unremarkable. Troponin x [address] of the chest without dissection or PE. Her ICD was interrogated and shows no acute events. On chart review, she had a cardiac catheterization in 2019 for that was relatively unremarkable. She had improvement in the pain after medication. The etiology of her chest pain is uncertain however low suspicion for ACS given the nature. Follow-up with PCP and cardiology. Return back to the ED if symptoms change or worsen. She confirmed understanding of plan. Patient stable to discharge home. Impression: 1. Episodic chest pain Lab Data Labs: Laboratory Results - last 24 hr 01/11/25 01/11/25 15:20 17:24 WBC 5.3 RBC 4.41 Hgb 13.4 Hct 39.6 MCV 89.8 MCH 30.4 MCHC 33.8 RDW Std Deviation 44.3 H RDW Coeff of Tomi 13.6 Plt Count 176 MPV 10.9 Immature Gran % (Auto) 0.200 Neut % (Auto) 52.8 Lymph % (Auto) 39.7 Wilcox % (Auto) 6.2 Eos % (Auto) 0.9 Baso % (Auto) 0.2 Absolute Neuts (auto) 2.8 Absolute Lymphs (auto) 2.10 Nucleated RBC % 0 Sodium 134 Potassium 3.6 Chloride 98 Carbon Dioxide 22.6 Anion Gap 13 BUN 21 H Creatinine 0.94 Estim Creat Clear Calc 76.58 Est GFR (MDRD) Non-Af 71 BUN/Creatinine Ratio 21.8 H Glucose 370 H Calcium 9.6 Total Bilirubin 0.70 AST 19 ALT 20 Alkaline Phosphatase 110 H Troponin T High Sens 7 Troponin T Hi Sens 2 Hr 7 Total Protein 7.4 Albumin 4.2 Globulin 3.3 Albumin/Globulin Ratio 1.3 Lipase 39 Radiography Diagnostic Testing: Clinical Impression(s) from Imaging Studies Chest X-Ray 01/11/25 15:35 IMPRESSION: Cardiomegaly with vascular congestion. No acute airspace disease. Reading Location: [id number] Chest CTA 01/11/25 15:44 IMPRESSION: 1. Mild cardiomegaly. Prior cardiac interventions as described. 2. No pulmonary arterial emboli. 3. No thoracic aortic aneurysm or dissection. 4. No acute airspace disease. 5. Heterogeneous nodular thyroid gland; see prior thyroid ultrasound. Reading Location: [facility] Discharge Plan Triage Chief Complaint: Chest Pain ED Midlevel Provider: Margo Morris ED Provider: Tam Robins Dx/Rx/DC Orders Clinical Impression: Atypical chest pain Instructions: ED Chest Pain, Uncertain Cause Prescriptions: No Action melatonin 10 mg capsule 10 mg PO HS PRN (Reason: insomnia) Entresto 97-103 mg tablet 1 tab PO BID Qty: 180 3RF Eliquis 5 mg tablet See Rx Instructions .ROUTE .COMPLEX Qty: 180 3RF Dose Instruction: take 1 tablet by mouth twice a day Patient Comments: since 08/25 Rx Instructions: take 1 tablet by mouth twice a day Trulicity 4.5 mg/0.5 mL pen injector 4.5 mg subcut QWEEK Qty: 2 3RF Patient Comments: PT TAKES ON THURSDAYS tizanidine 4 mg tablet 4 mg PO QHS diphenhydramine HCl 25 mg Tablet 25 mg PO Q4H PRN (Reason: Allergy Symptoms) promethazine 25 mg tablet 25 mg PO TID PRN (Reason: Nausea And Vomiting) hydrocodone-acetaminophen 5-325 mg tablet 1 tab PO BID PRN (Reason: pain) omeprazole magnesium [Prilosec OTC] 20 mg tablet,delayed release (DR/EC) 20 mg PO DAILY Movantik 25 mg tablet 25 mg PO QAM PRN (Reason: pain) Rx Instructions: must be taken on empty stomach; no food 1 hr after or 2-3 hrs before dose insulin glargine-yfgn 100 unit/mL (3 mL) Insulin Pen 50 unit subcut DAILY Qty: 0 0RF insulin lispro [Humalog KwikPen Insulin] 100 unit/mL Insulin Pen 36 unit subcut TIDCM furosemide [Lasix] 20 mg tablet 60 mg PO DAILY Qty: 90 0RF albuterol sulfate [Ventolin HFA] 90 mcg/actuation HFA aerosol inhaler 2 puff inhalation Q6H PRN (Reason: shortness of breath or wheezing) Qty: 6.7 0RF budesonide-formoterol [Symbicort] 160-4.5 mcg/actuation HFA aerosol inhaler 2 puff inhalation BID Qty: 10.2 0RF Rx Instructions: Gargle with water and spit out water after use (DME) pen needle, diabetic [BD Ultra-Fine [place] Pen Needle] 32 gauge x 5/32 needle See Rx Instructions .Route Qty: 100 5RF Rx Instructions: 4x/day cholecalciferol (vitamin D3) 50 mcg (2,000 unit) capsule 1,000 unit PO DAILY Patient Comments: PT TAKES WHEN SHE REMEMBERS clopidogrel [Plavix] 75 mg tablet 75 mg PO DAILY Qty: 90 3RF atorvastatin 80 mg tablet See Rx Instructions .ROUTE .COMPLEX Qty: 360 0RF Dose Instruction: take 1 tablet by mouth at bedtime Rx Instructions: take 1 tablet by mouth at bedtime isosorbide mononitrate 30 mg tablet extended release 24 hr See Rx Instructions .ROUTE .COMPLEX Qty: 360 0RF Dose Instruction: take 1 tablet by mouth once daily Rx Instructions: take 1 tablet by mouth once daily (DME) Dexcom G7 Structural Iron Worker Misc See Rx Instructions .Route Qty: 1 0RF Rx Instructions: As directed carvedilol 25 mg tablet 25 mg PO BID Qty: 180 3RF Rx Instructions: must administer with a meal/food spironolactone 50 mg tablet 50 mg PO DAILY Qty: 90 3RF methimazole 10 mg tablet 10 mg PO DAILY Qty: 90 1RF (DME) Dexcom G7 Sensor Device See Rx Instructions .Route Qty: 3 5RF Rx Instructions: 1 sensor q 14 days Primary Care Provider: Margo Tatum Referrals: Margo Tatum DO [Primary Care Provider] - Activity Restrictions/Additional Instructions: I am not sure what is causing your chest pain. We have ruled out dangerous causes like heart attacks, blood clots, aortic dissection, or pneumonia. I recommend you follow-up with your primary care doctor or paint tester next week. If symptoms worsen come back to the ER. Print Language: Maltese Disposition Disposition: Home, Self Care Discharge Date/Time: 01/11/25 18:54
[2025-01-11] MEDS: Famotidine 200 MG/20 ML MDV 20 MG in 0.9% Normal Saline (Pres. free 8 ML 300 MG IV (15:27)
[2025-01-11 15:28] VITALS: BP 145/60; PULSE 79; RESP 18; O2SAT 100
--- NOTE | 2025-01-11 15:35 | RAD_ITS ---
PROCEDURE: CHEST PA AND LATERAL 01/11/2025 REASON FOR EXAM: CHEST PAIN TECHNIQUE: CHEST PA AND LATERAL COMPARISON: 12/06/2024 FINDINGS: Devices: Left chest wall multilead ICD appears appropriately positioned. Spinal cord stimulator device leads positioned at the lower thoracic spinal canal. Lungs/Pleura: Central vascular congestion. No focal consolidation or findings of pulmonary edema. No pneumothorax or pleural effusion. Heart/Mediastinum: Cardiomegaly. Bones/Soft tissues: Mild degenerative changes of the spine. Cholecystectomy surgical clips. RAD/Chest PA and Lateral IMPRESSION: Cardiomegaly with vascular congestion. No acute airspace disease. Reading Location: [id number]
[2025-01-11 15:44] LABS: Hematocrit 39.6 % (37-47); Hemoglobin 13.4 g/dL (12.0-15.0); Immature Granulocytes Count 0.010 X10^3/uL (0.0-0.0); Mean Corp Hgb Conc 33.8 g/dL (32-36); Mean Corpuscular Volume 89.8 fL (81-99); Mean Platelet Vol. 10.9 fl (6.2-12.0); NRBC Flagged by Analyzer 0 % (0-5); Platelet Count 176 K/mm3 (150-450); RBC Distribution Width CV 13.6 % (11.6-14.6); RBC Distribution Width SD 44.3 fl (35.1-43.9); Red Blood Count 4.41 M/mm3 (4.2-5.4); White Blood Count 5.3 K/mm3 (4.4-11.0)
--- NOTE | 2025-01-11 15:44 | CT_ITS ---
PROCEDURE: CTA CHEST W/WO CONTRAST 01/11/2025 REASON FOR EXAM: CHEST PAIN AND RULE OUT DISSECTION TECHNIQUE: CTA CHEST W/WO CONTRAST Multiplanar Sagittal and Coronal images were obtained. 3D post processing was performed. CONTRAST: Isovue 370 VOLUME: 94 mL One or more dose reduction techniques were used (e.g., Automated exposure control, adjustment of the mA and/or kV according to patient size, use of iterative reconstruction technique). RADIATION DOSE SUMMARY: DLP: 481.6 mGycm COMPARISON: CTA chest 09/09/2024. FINDINGS: PULMONARY VESSELS: Normal caliber central pulmonary vessels. No filling defects suspicious for pulmonary arterial emboli. No evidence of right heart strain. THORACIC AORTA: Normal in course and caliber. No aneurysm or dissection. Minimal scattered atherosclerotic calcifications along the aortic arch and branch vessel origins. HEART: Mildly enlarged. No pericardial effusion. Mild-moderate coronary artery calcifications and/or stenting. Left chest wall multilead ICD appears appropriately positioned. MEDIASTINUM: Unremarkable, no mass or lymphadenopathy. LUNGS/PLEURA: Clear. No airspace consolidation or findings of pulmonary edema. No pneumothorax or pleural effusion. Mild bilateral dependent atelectasis. Central airways are patent. UPPER ABDOMEN: Unremarkable. Status post cholecystectomy. BONES/SOFT TISSUES: Heterogeneous thyroid with small hypodense nodular lesions. Implanted spinal cord stimulator device leads in place within the dorsal aspect of the spinal canal at T8-T9. Mild degenerative changes of the thoracic spine. CT/CTA Chest W/WO Contrast IMPRESSION: 1. Mild cardiomegaly. Prior cardiac interventions as described. 2. No pulmonary arterial emboli. 3. No thoracic aortic aneurysm or dissection. 4. No acute airspace disease. 5. Heterogeneous nodular thyroid gland; see prior thyroid ultrasound. Reading Location: [id number]
[2025-01-11 15:54] LABS: AST(SGOT) 19 U/L (<=31); Alanine Aminotransfer ALT/SGPT 20 U/L (<=34); Albumin, Serum 4.2 g/dL (3.5-5.0); Alkaline Phosphatase 110 U/L (35-104); Anion Gap 13 (5-15); BUN 21 mg/dL (4-19); BUN/Creat Ratio 21.8 RATIO (10-20); Calcium,Total 9.6 mg/dL (7.6-11.0); Carbon Dioxide 22.6 mmol/L (21.0-32.0); Chloride 98 mmol/L (98-108); Estimated Creatinine Clearance 76.58 ml/min (50-250); Globulin 3.3 g/dL (2.2-4.2); Glucose 370 mg/dL (70-99); Lipase 39 U/L (13-75); Potassium 3.6 mmol/L (3.3-5.1); Troponin T High Sensitivity 7 ng/L (<=14)
[2025-01-11 16:06] VITALS: BP 145/60; PULSE 72; RESP 18; O2SAT 98
[2025-01-11 16:59] VITALS: BP 101/60; PULSE 72; RESP 18; O2SAT 98
[2025-01-11 17:57] VITALS: BP 134/81; PULSE 70; RESP 18; O2SAT 98
[2025-01-11 18:08] LABS: Troponin T High Sens 2 HR 7 ng/L (<=14)
[2025-01-11 18:49] VITALS: BP 151/69; PULSE 71; RESP 18; TEMP 36.7; O2SAT 100
== END 2025-01-11 18:54 | disposition home or self-care (01) ==
PROVIDERS: Physician Assistant; Emergency Provider Surgery; PCP Family Medicine; Visit Provider Surgery
DX: R07.89 Other chest pain (principal); I11.0 Hypertensive heart disease with heart failure; I50.22 Chronic systolic (congestive) heart failure; J44.9 Chronic obstructive pulmonary disease, unspecified; I42.8 Other cardiomyopathies; E11.9 Type 2 diabetes mellitus without complications; I25.10 Atherosclerotic heart disease of native coronary artery without angina pectoris; I25.2 Old myocardial infarction; Z95.0 Presence of cardiac pacemaker; Z87.891 Personal history of nicotine dependence; Z95.5 Presence of coronary angioplasty implant and graft; Z86.16 Personal history of COVID-19
CPT/HCPCS: 71046; 71275; 80053; 83690; 84484; 85025; 93005; 93288; 93289; 96374; 96375; 99284; Q9967; A4216; J2405

== ENCOUNTER → 2025-01-11 | Outpatient (CLI) | payer OTHER, SELFPAY ==
[2024-01-03 09:13] VITALS: BMI 35.5
[2025-01-11 11:29] LABS: Pro- Brain NATRIURETIC PEPTIDE 655 pg/mL (<=900)
== END | disposition home or self-care (01) ==
PROVIDERS: PCP Family Medicine; Referring Provider Nurse Practitioner Family; Visit Provider Nurse Practitioner Family
DX: R06.09 Other forms of dyspnea (principal)
CPT/HCPCS: 36415; 83880

== ENCOUNTER → 2025-01-22 | Outpatient (CLI) | payer OTHER, SELFPAY ==
[2024-01-03 09:13] VITALS: BMI 35.5
== END | disposition home or self-care (01) ==
LOC: SL 09:23
PROVIDERS: PCP Family Medicine; Visit Provider Nurse Practitioner Family
DX: G47.30 Sleep apnea, unspecified (principal)
CPT/HCPCS: 98960; G0463

== ENCOUNTER → 2025-01-23 | Outpatient (CLI) | payer OTHER, SELFPAY ==
[2024-01-03 09:13] VITALS: BMI 35.5
--- NOTE | 2025-01-23 18:01 | CT_ITS ---
PROCEDURE: CHEST WITHOUT CONTRAST 01/23/2025 REASON FOR EXAM: SHORTNESS OF BREATH, RESTRICTIVE LUNG DISEASE TECHNIQUE: Chest CT without contrast. Coronal and Sagittal reconstruction series were provided. One or more dose reduction techniques were used (e.g., Automated exposure control, adjustment of the mA and/or kV according to patient size, use of iterative reconstruction technique RADIATION DOSE SUMMARY: CTDlvol: 14.66 mGy DLP: 538.51 mGycm COMPARISON: Prior study dated January 11, 2025. FINDINGS: Hardware: A left-sided dual-chamber pacemaker is seen. Lymph nodes: Small mediastinal lymph nodes are seen. Heart and Vasculature: The heart is not enlarged. No pericardial fusion. Coronary Artery Calcifications: Present Lungs and Airways: Stable increased interstitial markings at the lung bases suggestive of scarring. Pleura: No pleural effusion. Upper Abdomen: Status post cholecystectomy. Bones: Degenerative changes of the thoracic spine. Implanted spinal cord stimulator device is seen with the leads at the level CT/Chest without Contrast IMPRESSION: Coronary artery calcification (CAC) is is present Stable increased interstitial markings at the lung bases suggestive of scarring . Reading Location: [id number]
== END | disposition home or self-care (01) ==
PROVIDERS: PCP Family Medicine; Referring Provider Nurse Practitioner Family; Visit Provider Nurse Practitioner Family
DX: R06.02 Shortness of breath (principal)
CPT/HCPCS: 71250

== ENCOUNTER → 2025-02-25 | Outpatient (CLI) | payer OTHER, SELFPAY ==
[2024-01-03 09:13] VITALS: BMI 35.5
--- OUTSIDE RECORDS SUMMARY | 2025-02-25 20:11 | XMS RPT_ITS | CCD ---
Author Organization [facility]ini[facility] Care Team Providers Care Computer Hardware Designer Name Role Phone Dr. Margo Tatum Primary Care Provider [phone] Alek Jc Emergency Provider Dr. Gustavo [...] Attending Provider Dr. Margo Tatum Referring Provider [phone] Stacey HOPPER, WARD Rubio Attending Provider [...] Rc, Dr. Aragon Referring Provider Jaz COFFMAN, CLERICAL ADMINISTRATIVE ASSISTANT-C Francine Rubio Attending Provider [phone] WARD Mallory Attending Provider Dr. Cr Ho Attending Provider Dr. Arun Marc Attending Provider [phone] Roof CLERICAL ADMINISTRATIVE ASSISTANT, CLERICAL ADMINISTRATIVE ASSISTANT-Norris Whelan Attending Provider Rc, Dr. Aragon Primary Care Provider Rc, Dr. Aragon Referring Provider Jaz COFFMAN, CLERICAL ADMINISTRATIVE ASSISTANT-C Francine Rubio Attending Provider [phone] WARD Mallory Attending Provider Dr. Cr Ho Attending Provider [phone] Arun Marc Attending Provider [phone] Roof CLERICAL ADMINISTRATIVE ASSISTANT, CLERICAL ADMINISTRATIVE ASSISTANT-Norris Whelan Attending Provider Rc, Dr. Aragon Primary Care Provider Dr. Margo Tatum Referring Provider CARMEN Tom Attending Provider Rc, Dr. Aragon Primary Care Provider Rc, Dr. Aragon Referring Provider [phone] Dr. Cr Ho Attending Provider [phone] Edward Hancock Attending Provider Rc, Dr. Aragon Primary Care Provider Dr. Margo Tatum Referring Provider Roof CLERICAL ADMINISTRATIVE ASSISTANT, AUGUSTUS-Norris Whelan Attending Provider Dr. Margo Tatum Primary Care Provider Dr. Cr Ho Attending Provider 1([facility])-[phone] Arjun Ortez Emergency Provider 1([facility])[phone] Dr. Patel Nguyenit Provider 1([facility])[phone] Patel Nguyen Attending Provider 1([facility]) [phone] Dr. Patel Nguyen Other Provider 1([facility])[phone] Suma Mathew Other Provider Dr. Gustavo Leslie Attending Provider 1([facility])[phone] Dr. Suma Mathew Attending Provider 1([facility])[phone] Roof FASHION ARTIST, Bryan Unavailable Margo Tatum DO Primary Care Provider 1([facility])[phone] Roof FASHION ARTIST, Bryan Unavailable Dr. Margo Tatum Primary Care Provider 1([facility])[phone] Dr. Margo Tatum Referring Provider 1([facility])[phone] CARMEN Tom Attending Provider 1([facility])[phone] Dr. Arjun Ortez Emergency Provider 1([facility])- [phone] Wendy, Dr. Patel Paul Provider 1([facility])[phone] Patel Nguyen Attending Provider 1([facility]) [phone] Dr. Patel Nguyen Other Provider 1([facility])[phone] Cr Ho Attending Provider 1([facility])-[phone] Patel Nguyen Referring Provider 1([facility])[phone] Dr. Suma Mathew Other Provider Dr. Gustavo Leslie Attending Provider 1([facility]) -[phone] Dr. Suma Mathew Attending Provider 1([facility])[phone] Jak Loaiza Attending Provider 1([facility])[phone] Dr. Víctor Alvarez Referring Provider 1([facility])[phone] CARMEN Mitchell NP Attending Provider 1([facility])[phone] Dr. Margo Tatum Primary Care Provider 1([facility])[phone] Dr. Margo Tatum Referring Provider 1([facility])[phone] CARMEN Tom Attending Provider 1([facility])[phone] MALYS, MARGO Primary Care Unavailable NASSAL, RUPALI [...] Unavailable Mallast, Dr. Aragon Primary Care Provider 1([facility])[phone] Dr. Cr Ho Attending Provider 1([facility])-[phone] Margo Tatum Primary Care Provider 1([facility])[phone] Dr. Margo Tatum Referring Provider 1([facility])[phone] CARMEN Tom Attending Provider 1([facility])[phone] Dr. Cr Ho Attending Provider 1([facility])-[phone]. Margo Tatum Primary Care Provider 1([facility])[phone] Dr. Cr Ho Attending Provider 1([facility])-[phone] Margo Tatum Referring Provider 1([facility])[phone] CARMEN Tom Attending Provider 1([facility])[phone] Dr. Edward Hancock Attending Provider 1([facility])[phone] Dr. Margo Tatum Primary Care Provider 1([facility])[phone] Dr. Cr Ho Attending Provider 1([facility])[phone] Margo Tatum Referring Provider 1([facility])[phone] CARMEN Tom Attending Provider 1([facility])[phone] Dr. Edward Hancock Attending Provider [phone] Margo Tatum Primary Care Provider 1([facility])[phone] Dr. Cr Ho Attending Provider 1([facility])[phone] Rell Loera Emergency Provider 1([facility])[phone] Dr. Perlita Gómez Admit Provider 1([facility])[phone] Perlita Gómez Other Provider Dr. [...] Provider Dr. Jamie Manrique Other Provider [phone] Truman GEE, Jianming Primary Care Provider Dr. Margo Tatum DO Primary Care Provider Lyndsey MASON, Dr. Rivera Attending Provider Lyndsey MASON, Dr. Rivera Emergency Provider Vic GEE, Dr. Hankins Attending Provider Rc MASON, Dr. Aragon Referring Provider Jean CLERICAL ADMINISTRATIVE ASSISTANT-C, Mike Attending Provider Jean CLERICAL ADMINISTRATIVE ASSISTANT-C, Mike Referring Provider Harper GEE, Carlos Referring [...] Dr. Darline Solano MD Attending Provider Dr. Darlien Solano MD Referring Provider Dr. Margo Tatum DO Primary Care Provider Jean CLERICAL ADMINISTRATIVE ASSISTANT-C, Mike Attending Provider Vic GEE, Dr. Hankins Attending Provider Dr. Margo Tatum DO Referring Provider Dr. Arjun Ortez DO Emergency Provider Dr. Margo Tatum DO Primary Care Provider Jean CLERICAL ADMINISTRATIVE ASSISTANT-C, Mike Attending Provider Jean CLERICAL ADMINISTRATIVE ASSISTANT-C, Mike Referring Provider Dr. Arjun Ortez DO Attending Provider Truman GEE, [facility] Care Provider Dr. Margo Tatum DO Primary Care Provider Vic GEE, Dr. Hankins Attending Provider Harper GEE, Carlos Emergency Provider Ivette GEE, Dr. Francine Manjarrez Admit Provider Ivette GEE, Dr. Francine Manjarrez Attending Provider Ivette GEE, Dr. Francine Manjarrez Other Provider Harper GEE, Carlos Referring Provider Dr. Damaris Thibodeaux DO Attending Provider Burton MASON, Dr. Ayala Other Provider [phone] Dr. Jamie Manrique DO Attending Provider Dr. Damaris Thibodeaux DO Other Provider Rc MASON, Dr. Aragon Referring Provider Jean CLERICAL ADMINISTRATIVE ASSISTANT-C, Mike Attending Provider Jean CLERICAL ADMINISTRATIVE ASSISTANT-C, Mike Referring Provider Xiomara GEE, Dr. Gregorio Attending Provider Xiomara GEE, Dr. Gregorio Referring Provider Dr. Arjun Ortez DO Attending Provider Dr. Arjun Ortez DO Emergency Provider Dr. Allen Meraz DO Emergency Provider Quincy GEE, Dr. Moise Admit Provider Quincy GEE, Dr. Moise Attending Provider Quincy GEE, Dr. Moise Other Provider Dr. Aidan Staples DO Attending Provider Dorian GEE, Dr. Haro Attending Provider Bel MASON, Dr. Bermudez Other Provider [phone] Evaristo GEE, Dr. Zacarias Referring Provider Evaristo GEE, Dr. Zacarias Emergency Provider Chino MASON, Dr. Durham Attending Provider Evaristo GEE, Dr. Zacarias Attending Provider Chino MASON, Dr. Durham Referring Provider Rc MASON, Dr. Aragon Primary Care Provider Vic GEE, Dr. Hankins Attending Provider [phone] Deja GEE, Dr. Ng Attending Provider Chino MASON, Dr. Durham Other Provider Rc MASON, Dr. Aragon Primary Care Provider [phone] Jean CLERICAL ADMINISTRATIVE ASSISTANT-CMike Attending Provider Vic GEE, Dr. Hankins Attending Provider [phone] Rc MASON, Dr. Aragon Referring Provider [phone] Romel COFFMAN-CSusan Attending Provider Romel CLERICAL ADMINISTRATIVE ASSISTANT-CSusan Referring Provider Shimon MASON, Dr. Turcios Emergency Provider Dr. Berenice Short MD Attending Provider Shimon MASON, Dr. Turcios Attending Provider Rc MASON, Dr. Aragon Primary Care Provider [phone] Jean CLERICAL ADMINISTRATIVE ASSISTANT-CMike Attending Provider Susan Urena Attending Unavailable Malys, Margo Primary Care Unavailable Susan Urena Referring Unavailable Malys, Margo Primary Care Unavailable Susan Urena Attending Unavailable Susan Urena Referring Unavailable Malys, Margo Primary Care Unavailable Cr Ho Attending Unavailable Malys, Margo Primary Care Unavailable Suma Mathew Admitting Unavailable Suma Mathew Consulting Unavailable Aidan Staples Attending Unavailable Brown, Herminio Referring Unavailable Brown, Herminio Attending Unavailable Malys, Margo Primary Care Unavailable Malys, Margo Primary Care Unavailable Mike Tom Referring Unavailable Mike Tom Attending Unavailable Brown, Herminio Referring Unavailable BrownLizandrok Attending Unavailable Malys, Margo Primary Care Unavailable Susan Urena Attending Unavailable Malys, Margo Referring Unavailable Malys, Margo Primary Care Unavailable Malys, Margo Primary Care Unavailable Malys, Margo Referring Unavailable Vic, [place] Attending Unavailable Brown, Herminio Attending Unavailable Malys, Margo Referring Unavailable Malys, Margo Primary Care Unavailable Malys, Margo Primary Care Unavailable Vic, [place] Attending Unavailable Malys, Margo Primary Care Unavailable Arjun Ortez Attending Unavailable Rell Loera Attending Unavailable Malys, Margo Primary Care Unavailable Rell Loera Referring Unavailable Malys, Margo Primary Care Unavailable Susan Urena Attending Unavailable Brown, Herminio Referring Unavailable Brown, Herminio Attending Unavailable Malys, Margo Primary Care Unavailable Brown, Herminio Referring Unavailable Brown, Herminio Attending Unavailable Brown, Herminio Consulting Unavailable Malys, Margo Primary Care Unavailable Malys, Margo Primary Care Unavailable Vic, [place] Attending Unavailable Koram, Francine Josseline Consulting Unavailable Reodica, Carlos Referring Unavailable Malys, Margo Primary Care Unavailable Damaris Thibodeaux Attending Unavailable Koram, Francine Josseline Admitting Unavailable Jamie Manrique Consulting Unavailable Malys, Margo Primary Care Unavailable Susan Urena Referring Unavailable Susan Urena Attending Unavailable Malys, Margo Primary Care Unavailable Tam Robins Attending Unavailabl e Malys, Margo Primary Care Unavailable Vic, [place] Attending Unavailable Malys, Margo Primary Care Unavailable Vic, [place] Attending Unavailable Malys, Margo Referring Unavailable Malys, Margo Primary Care Unavailable Mike Tom Attending Unavailable Suma Mathew Admitting Unavailable Suma Mathew Consulting Unavailable Malys, Margo Primary Care Unavailable Aidan Staples Attending Unavailable Aidan Staples Consulting Unavailable Koram, Francine Josseline Attending Unavailable Reodica, Carlos Referring Unavailable Malys, Margo Primary Care Unavailable Koram, Francine Josseline Consulting Unavailable Koram, Francine Josselien Admitting Unavailable Suma Mathew Attending Unavailable Malys, Margo Primary Care Unavailable Dorian, Estrellita Attending Unavailable Malys, Margo Primary Care Unavailable Bethany Jacobsno Attending Unavailable Malys, Margo Referring Unavailable Malys, Margo Primary Care Unavailable Roof Bryan COFFMAN Attending Unavailable Malys, Margo Referring Unavailable Malys, Margo Primary Care Unavailable Cr Ho Attending Unavailable Malys, Margo Primary Care Unavailable JeanMike Attending Unavailable Malys, Margo Referring Unavailable Malys, Margo Primary Care Unavailable JeanMike Attending Unavailable Malys, Margo Referring Unavailable Malys, Margo Primary Care Unavailable Miguel Solorio Attending Unavailable Malys, Margo Primary Care Unavailable JeanMike Attending Unavailable Jean, Mike Referring Unavailable Malys, Margo Primary Care Unavailable Basali, Ayman Attending Unavailable Basali, Ayman Referring Unavailable Malys, Margo Primary Care Unavailable Mike Tom Attending Unavailable Malys, Margo Referring Unavailable ReodicaCarlos Referring Unavailable Malys, Margo Primary Care Unavailable Jamie Manrique Attending Unavailable Koram, Francine Josseline Consulting Unavailable Koram, Francine Josseline Admitting Unavailable Jamie Manrique Consulting Unavailable Damaris Thibodeaux Attending Unavailable Damaris Thibodeaux Consulting Unavailable Malys, Margo Primary Care Unavailable Basali, Ayman Referring Unavailable Basali, Mehranman Attending Unavailable Allergies Allergy Classification Reported Allergen(s) Allergy Type Date of Onset Reaction(s) Facility (20 sources) Amoxicillin; Translations: [amoxicillin trihydrate] Drug Allergy 07-17-2021 [facility] (20 sources) potassium clavulanate; Translations: [potassium clavulanate] Propensity to adverse reactions 07-17-2021 [facility] (2 sources) Amoxicillin / Clavulanate Drug Allergy 08-18-2022 [facility] Medications Current Medications Medication [...] 4 HOURS NEEDED as needed for Pain 03 07March 17, 2018 12:00am March 18, 2018 12:00am March 19, 2018 12:09am Start: 03-17-2018 End: 03-19-2018 Start: 03-17-2018 End: 03-19-2018 take 1 tablet by mouth every four hours as needed Hydrocodone-Acetaminophen Discontinued 1 TABLET PO EVERY 4 HOURS NEEDED 03 07March 17, 2018 12:00am March 19, 2018 12:09am [id number] 200 actuat albuterol 0.09 mg/actuat metered dose inhaler (13 sources) beta2-Adrenergic Agonist Start: 12-01-2024 benzocaine 15 mg / menthol 3.6 mg oral lozenge (5 sources) Standardized Chemical Allergen Start: 09-14-2021 Benzocaine-Menthol (Cepacol Sore Throat (Azam-Men)) 15-3.6 mg Lozenge Active 1 LOZENGE MUCOUS MEM EVERY 2 HOURS NEEDED 0 September 14, 2021 11:50am Blood-Glucose Meter,Continuous (Dexcom G7 Air Hammer Stripper) misc (5 sources) Start: 10-10-2023 Blood-Glucose Meter,Continuous (Dexcom G7 Air Hammer Stripper) misc Active 0 .Route 1 October 10, 2023 12:00am As directed Blood-Glucose [...] 12:00am April 04, 2024 10:17am As directed Blood-Glucose,Air Hammer Stripper,Cont (Dexcom G7 Air Hammer Stripper) misc (3 sources) Start: 10-10-2023 Blood-Glucose,Air Hammer Stripper,Cont (Dexcom G7 Air Hammer Stripper) misc Active 0 .Route 1 October 10, 2023 12:00am As directed Budesonide-Formoterol (13 sources) Corticoste roid, beta2-Adre nergic Agonist Start: 12-01-2024 cholecalciferol 0.05 mg oral capsule (20 sources) [...] 11, 2023 1:10pm Start: 05-11-2023 End: 08-11-2023 gabapentin 100 mg oral capsule (1 source) Anti-epileptic Agent Start: 09-20-2022 End: 09-30-2022 take 1 capsule by mouth three times daily Gabapentin 100 MG capsule Take 1 capsule by mouth 3 times daily for 10 days. 30 capsule 0 09/20/2022 09/30/2022 Active glipiZIDE 10 mg oral tablet (20 sources) Sulfonylurea Start: 01-29-2025 Start: 06-13-2024 End: 10-15-2024 Start: 09-02-2022 End: 09-14-2022 Glipizide Discontinued MG PO September 02, 2022 12:00am September 14, 2022 2:33pm Start: 07-11-2020 End: 06-13-2024 Start: 07-11-2020 End: 06-13-2024 Start: 07-11-2020 End: 09-10-2023 take 1 tablet by mouth twice daily Glipizide 10 mg tablet extended release 24hr Discontinued 10 mg PO TWICE A DAY 180 March 14, 2023 10:57am September 10, 2023 10:50am Start: 10-20-2019 End: 07-11-2020 hydroCHLOROthiazide 25 mg oral tablet (1 source) Thiazide Diuretic Start: 01-29-2025 Insulin Glargine (Lantus Solostar U-100 Insulin) 100 [...] 12-13-2023 Start: 12-13-2023 take 1 capsule by [facility] at bedtime as needed Melatonin 10 mg [...] as needed. 56 Tab 0 01/10/2012 Active sennosides, mcc 8.6 mg oral tablet (2 sources) Start: 01-10-2012 take 1 tablet by mouth once daily senna 8.6 MG PO TABS take 1 Tab by mouth daily. 40 Tab 0 01/10/2012 Active spironolactone 50 mg oral tablet (20 sources) Aldosterone Antagonist Start: 01-29-2025 Start: 03-08-2023 End: 03-20-2024 Start: 03-08-2023 End: 03-20-2024 Start: 09-14-2022 End: 03-08-2023 tiZANidine 4 mg oral tablet (20 sources) Central alpha-2 Adrenergic Agonist Start: 08-06-2022 Start: 06-12-2020 End: 05-18-2022 (20 sources) Start: 09-17-2024 Start: 09-11-2024 Start: 04-04-2024 End: 09-17-2024 Start: 03-20-2024 End: 01-29-2025 Start: 03-20-2024 Start: 10-10-2023 Start: 10-10-2023 End: 04-04-2024 Start: 09-14-2023 End: 10-10-2023 Start: 08-11-2023 End: 10-10-2023 Start: 08-11-2023 Start: 03-02-2023 End: 09-14-2023 Start: 03-02-2023 Start: 09-23-2022 End: 03-02-2023 Start: 08-06-2022 Start: 07-29-2022 Start: 07-08-2022 End: 07-29-2022 Start: 06-09-2022 End: 09-23-2022 Start: 06-09-2022 End: 08-11-2023 Completed/Discontinued Medications Medication Drug Class(es) Dates Sig (Normalized) Sig (Original) 8 hr acetaminophen 650 mg extended release oral tablet (20 sources) Start: 10-20-2022 End: 08-26-2023 Start: 09-20-2022 [...] sources) Factor Xa Inhibitor Start: 01-27-2022 End: 01-29-2025 Eliquis 5 MG tab let Take by [...] sources) HMG-CoA Reductase Inhibitor Start: 07-06-2021 End: 01-29-2025 Start: 06-29-2021 End: 07-06-2021 Start: 06-29-2021 End: [...] Discontinued 40 mg PO AT BEDTIME July 11, 2020 12:36pm May 20, 2021 9:09am Start: 06-13-2020 End: 05-20-2021 azithromycin 250 mg oral tablet (20 sources) Macrolide Antimicrobial Start: 05-30-2024 End: 06-13-2024 bisacodyl 10 mg rectal suppository (1 source) Stimulant Laxative Start: 01-10-2012 End: 08-18-2022 bisacodyl 10 MG RE SUPP 1 Suppository by Rectal route daily as needed. 30 Suppository 0 01/10/2012 08/18/2022 Discontinued (Medication Reconciliation (suppress cancel msg)) calcium carbonate 1500 mg oral tablet (20 sources) Start: 10-14-2022 End: 08-26-2023 carvedilol 25 mg oral tablet (20 sources) alpha-Adrenergic Timothy, beta-Adrenergic Timothy Start: 03-11-2022 End: 01-29-2025 Start: 03-11-2022 End: 12-29-2023 Start: 10-15-2021 End: 03-11-2022 Start: 06-29-2021 End: 10-15-2021 Start: 03-31-2021 End: 06-29-2021 Start: 03-31-2021 End: 06-29-2021 take 6.25 mg by mouth twice daily Carvedilol 12.5 mg tablet Discontinued 6.25 mg PO TWICE A DAY 120 March 31, 2021 3:10pm June 29, 2021 10:43am Start: 03-31-2021 End: 06-29-2021 take 6.25 mg by mouth twice daily Carvedilol Discontinued 6.25 MG PO TWICE A DAY 120 March 31, 2021 3:10pm June 29, 2021 10:43am Start: 09-16-2020 End: 03-31-2021 Start: 06-13-2020 End: 09-16-2020 cefdinir 300 mg oral capsule (20 sources) Cephalosporin Antibacterial Start: 09-14-2021 End: 10-15-2021 cephalexin 500 mg oral capsu le (20 sources) Cephalosporin Antibacterial Start: 09-02-2022 End: 10-20-2022 Start: 05-08-2022 End: 05-18-2022 Start: 05-08-2022 End: 05-18-2022 take 1 capsule by mouth every twelve hours Cephalexin 500 mg capsule Discontinued 500 mg PO EVERY 12 HOURS 10 May 08, 2022 1:00am May 18, 2022 2:55pm clopidogrel 75 mg oral table t (20 sources) [id number] Platelet Inhibitor Start: 06-08-2021 End: 01-29-2025 Start: 06-08-2021 End: 05-16-2023 cyclobenzaprine hydrochloride 10 [...] Glucose Scanning Reade r (Freestyle Sanam [place]) misc (20 sources) Start: 08-11-2023 End: 10-10-2023 Flash Glucose Scanning Reade r (Freestyle Sanam [place]) misc Discontinued 0 .Route 1 August 11, 2023 1:07pm October 10, 2023 1:33pm As directed Start: 08-11-2023 Flash Glucose Scanning [place] (Freestyle Sanam [place]) misc Active 0 .Route 1 August 11, 2023 1:07pm As directed Start: 06-09-2022 End: 08-11-2023 Flash Glucose Scanning Reade r (Freestyle Sanam [place]) misc Discontinued 0 .Route 1 June 09, 2022 1:00am August 11, 2023 1:07pm As directed Start: 06-09-2022 Flash Glucose Scanning [place] (Freestyle Sanam [place]) [facility] Active 0 .Route 1 June 09, 2022 1:00am As directed Start: 06-09-2022 Flash Glucose Scanning [place] (Freestyle Sanam 2 [place]) [facility] Active 0 .Route 1 June 09, 2022 [...] 2022 12:00am 1 sensor q 14 days furosemide 20 mg oral tablet (20 sources) Loop Diuretic Start: 12-01-2024 End: 01-29-2025 Start: 09-11-2024 End: 12-01-2024 Start: 09-10-2023 End: 09-11-2024 Start: 06-29-2021 End: 09-10-2023 take 1 tablet by mouth twice daily Furosemide 40 mg Tablet Discontinued 40 mg PO TWICE DAILY 60 September 14, 2021 12:00am September 16, 2021 10:53pm Start: 06-13-2020 End: 09-10-2023 HYDROmorphone hydrochloride 4 mg oral tablet (1 [...] End: 09-06-2023 ibuprofen 200 mg oral tablet (20 sources) Nonsteroidal Anti-inflammatory Drug Start: 10-20-2022 End: 09-10-2023 Ibuprofen 200 MG capsule Take by mouth. 0 Active 3 ml insulin aspart, human 1 00 unt/ml pen injector (20 sources) Insulin Analog Start: 06-13-2024 End: 11-07-2024 [...] (20 sources) Nitrate Vasodilator Start: 05-25-2021 End: 01-29-2025 lisinopril 20 mg oral tablet (20 sources) Angiotensin Converting Enzyme Inhibitor Start: 07-06-2021 End: 07-06-2021 Start: 03-31-2021 End: 02-24-2022 Start: 03-31-2021 End: 07-06-2021 take [...] / nitrofurantoin, monohydrate 75 mg oral capsule (20 sources) Nitrofuran Antibacterial Start: 09-10-2023 End: 12-13-2023 [...] (ROXICODONE) tablet 5 mg polyethylene glycol 3350 [id number] mg powder for oral solution (1 source) Osmotic Laxative Start: 01-10-2012 End: 08-18-2022 take 1 dose by mouth once daily polyethylene glycol PO PACK take 1 Packet by mouth daily. 7 Packet 0 01/10/2012 08/18/2022 Discontinued (Medication Reconciliation (suppress cancel msg)) predniSONE 20 mg oral tablet (20 sources) Start: 12-01-2024 End: 01-11-2025 Start: 09-11-2024 End: 10-15-2024 Start: 09-11-2024 End: [...] ranolazine 500 mg extended release oral tablet (20 sources) Anti-anginal Start: 01-20-2024 End: 06-13-2024 sacubitril 97 mg / valsartan 103 mg oral tablet (20 sources) Angiotensin 2 Receptor Timothy Start: 12-13-2023 Sacubitril-Valsartan (Entresto) 97-103 mg tablet Active 1 {tbl} PO TWICE A DAY 180 December 13, 2023 3:48pm Start: 12-13-2023 End: 01-29-2025 Start: 12-13-2023 End: 12-13-2023 Sacubitril-Valsartan (Entres to) [...] 20, 2022 4:13pm Start: 02-24-2022 End: 10-20-2022 Semaglutide (20 sources) Start: 01-26-2023 End: 05-11-2023 Semaglutide (Ozempic) [...] injector Discontinued 0.25 MG SC EVERY WEEK January 25, 2023 11:00pm May 11, 2023 2:40pm for 4 weeks 10 ml sodium chloride 9 mg/m l injection (3 sources) Start: 09-20-2022 End: 09-20-2022 Sodium chloride (PF) 0.9 % injection 1-100 mL Start: 08-18-2022 End: 08-18-2022 Sodium chloride 0.9% IV solu tion Start: 08-18-2022 End: 08-18-2022 Sodium chloride 0.9% IV solu tion 500 mL sucralfate 1000 mg oral tabl et (20 [...] of kidney; Translations: [Acute kidney failure, unspecified] Episodic Acute myocardial infarction (20 sources) Myocardial infarction; Translations: [Non-ST elevation (NSTEMI) myocardial infarction] Chronic Anxiety disorders (20 sources) Anxiety; Translations: [Anxiety disorder, unspecified] 11-14-2021 Chronic Asthma (20 sources) Asthmatic bronchitis; Translations: [Unspecified asthma, uncomplicated] 08-10-2023 Chronic Cardiac dysrhythmias (20 sources) Paroxysmal atrial fibrillation; Translations: [Paroxysmal atrial fibrillation] 03-11-2022 Chronic Cardiac dysrhythmias (20 sources) Bradycardia; Translations: [Bradycardia, unspecified] Episodic Chronic obstructive pulmonary disease and bronchiectasis (20 sources) Chronic obstructive lung disease; Translations: [Chronic obstructive pulmonary disease, unspecified] 06-07-2024 Chronic Chronic obstructive pulmonary disease and bronchiectasis (20 sources) Bronchitis; Translations: [Bronchitis, not specified as [...] Onset: 3 Chronic Diabetes mellitus without complication (20 sources) Hyperglycemia; Translations: [Hyperglycemia, unspecified] 01-27-2024 Episodic Disorders of lipid metabolism (20 [...] electrolyte disorders (20 sources) Dehydration; Translations: [Dehydration] Episodic Genitourinary symptoms and ill-defined conditions (20 [...] [Chest pain, unspecified] Onset: Episodic Nutritional deficiencies (20 sources) Vitamin D deficiency; Translations: [Vitamin D deficiency, unspecified] 11-07-2024 Chronic Other aftercare (20 sources) Long-term current use of anticoagulant; Translations: [intermediate project manager (current) use of anticoagulants] 09-10-2022 Episodic Other aftercare (4 sources) Drug therapy finding; Translations: [senior care (current) use of anticoagulants] 08-26-2023 Episodic Other aftercare (7 sources) senior care (current) use of anticoagulants; Translations: [Long-term (current) use of anticoagulants] 08-26-2023 Episodic Other aftercare (2 sources) Patient encounter status; Translations: [senior care (current) use of antithrombotics/antipl atelets] 09-06-2023 Episodic Other aftercare (2 sources) intermediate project manager (current) use of antithrombotics/antipl atelets; Translations: [Long-term (current) use of antiplatelet/antithrom botic] 09-06-2023 Episodic Other aftercare (20 sources) Long-term current use of drug therapy; Translations: [senior care (current) use of antithrombotics/antipl atelets] 09-18-2023 Episodic Other circulatory disease (20 sources) Orthostatic hypotension; Translations: [Orthostatic hypotension] 09-24-2021 Episodic Other circulatory disease (20 sources) Low blood pressure; Translations: [Hypotension, unspecified] 11-25-2021 Episodic Other circulatory disease (20 sources) H/O: atrial fibrillation; Translations: [Personal history [...] conditions due to external causes (20 sources) Finding with explicit context; Translations: [Personal [...] classified] 04-13-2022 Episodic Other lower respiratory disease (14 sources) Other forms of dyspnea; Translations: [Other respiratory abnormalities] Onset: 5 Episodic Other lower respiratory disease (5 sources) Shortness of breath; Translations: [Shortness of breath] Onset: 5 08-06-2022 Episodic Other lower respiratory disease (20 sources) History of chronic obstructive airway disease; Translations: [Personal history of other diseases of the respiratory system] 01-27-2024 Episodic Other lower respiratory disease (20 sources) Hypoxia; Translations: [Hypoxemia] 09-09-2024 Episodic Other lower respiratory disease (12 sources) Cough; Translations: [Acute cough] 12-06-2024 Episodic Other nutritional; endocrine; and metabolic disorders (20 sources) Obesity; Translations: [Obesity, unspecified] 04-05-2022 Chronic Other nutritional; endocrine; and metabolic disorders (20 sources) Obesity, unspecified; Translations: [Obesity, unspecified] Chronic Other nutritional; endocrine; and metabolic disorders (1 source) Morbid (severe) obesity due to excess calories; Translations: [Morbid (severe) obesity due to excess calories] Onset: 5 Chronic Other nutritional; endocrine; and metabolic disorders (1 source) Body mass index (BMI) 38.0-38.9, adult; Translations: [Body mass index [BMI] 38.0-38.9, adult] Onset: 5 Chronic Other nutritional; endocrine; and metabolic disorders (20 sources) H/O: diabetes mellitus; Translations: [Personal history of other endocrine, nutritional and metabolic disease] 09-10-2022 Episodic Other screening for suspected conditions (not mental disorders or infectious disease) (20 sources) D-dimer above reference range; Translations: [Other [...] apnea, unspecified] 09-29-2021 Chronic Residual codes; unclassified (4 sources) Sleep apnea, unspecified; Translations: [Unspecified sleep apnea] Onset: 5 Chronic Residual codes; unclassified (20 sources) Obstructive sleep apnea syndrome; Translations: [Obstructive sleep apnea (adult) (pediatric)] 2024 Chronic Residual codes; unclassified (2 sources) Obstructive sleep apnea (adult) (pediatric); Translations: [Obstructive sleep apnea (adult) (pediatric)] Onset: 5 Chronic Residual codes; unclassified (20 sources) History [...] unspecified without thyrotoxic crisis or storm] Onset: Chronic Comment on above: This is a [...] coronary angioplasty status] Onset: 05-19-2021 Episodic Other aftercare (1 source) 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 Chest without Contraston Chest without Contrast Normal [facility] 12 Lead EKGon 01-11-2025 12 Lead EKG Normal [facility] Absolute lymphocyte countOrd ered By: Margo Morris on 01-11-2025 Lymphocytes Auto (Unsp spec) [#/Vol] 2.10 10*3/uL 0.83-4.51 [facility] Anion gap in Serum or Plasma Ordered By: Margo Morris on 01-11-2025 Anion gap [Moles/Vol] 13 mmol/L 5- [facility] Automated lymphocyte count a s percentage of total leukocytesOrdered By: Margo Morris on 01-11-2025 Lymphocytes/100 WBC Auto (Unsp spec) 39.7 % 19-41 [facility] BUN/creatinine ratioOrdered By: Margo Morris on 01-11-2025 Urea nitrogen/Creatinine [Mass ratio] 21.8 mg/mg High 10-20 [facility] Basophil percentageOrdered B y: Margo Morris on 01-11-2025 Basophils/100 WBC (Bld) 0.2 % 0-1 [facility] Bilirubin, totalOrdered By: Margo Morris on 01-11-2025 Bilirubin [Mass/Vol] 0.70 mg/dL 0.00-1.30 [facility] CBC W/Diff, Automatedon Absolute Lymph 2.10 X10 3/uL Normal 0.83-4.51 [facility] Comment on above: Performed By: #### L 100.0100, L501.2450, L501.4021, L500.4050 ####[facility] [address] [place], [address] Absolute Neut 2.8 X10 3/uL Normal 2.0-7.7 [facility] Comment on above: Performed By: #### L 100.0100, L501.2450, L501.4021, L500.4050 ####[facility] [address] [place], [address] Basophils/100 WBC (Bld) 0.2 % Normal 0-1 [facility] Comment on above: Performed By: #### L 100.0100, L501.2450, L501.4021, L500.4050 ####[facility] [address] [place], [address] Eosinophils/100 WBC (Bld) 0.9 % Normal 0-5 [facility] Comment on above: Performed By: #### L 100.0100, L501.2450, L501.4021, L500.4050 ####[facility] [address] [place], [address] Erythrocyte distribution width (RBC) [Ratio] 13.6 % Normal 11.6-14.6 [facility] Comment on above: Performed By: #### L 100.0100, L501.2450, L501.4021, L500.4050 ####[facility] [address] [place], [address] Hematocrit (Bld) [Volume fraction] 39.6 % Normal 37-47 [facility] Comment on above: Performed By: #### L 100.0100, L501.2450, L501.4021, L500.4050 ####[facility] [address] [place], [address] Hemoglobin (Bld) [Mass/Vol] 13.4 g/dL Normal 12.0-15.0 [facility] Comment on above: Performed By: #### L 100.0100, L501.2450, L501.4021, L500.4050 ####[facility] [address] [place], [address] IG% 0.200 Normal 0.0-0.9 [facility] Comment on above: Result Comment: IG% - Immature Granulocytes (promyelocytes, myelocytes andmetamyelocytes) > 1% indicates that a LEFT SHIFT is Present. Performed By: #### L 100.0100, L501.2450, L501.4021, L500.4050 ####[facility] [address] [place], [address] Lymphocytes/100 WBC (Bld) 39.7 % Normal 19-41 [facility] Comment on above: Performed By: #### L 100.0100, L501.2450, L501.4021, L500.4050 ####[facility] [address] [place], [address] MCH (RBC) [Entitic mass] 30.4 pg Normal 27.0-32.0 [facility] Comment on above: Performed By: #### L 100.0100, L501.2450, L501.4021, L500.4050 ####[facility] [address] [place], [address] MCHC (RBC) [Mass/Vol] 33.8 g/dL Normal 32-36 [facility] Comment on above: Performed By: #### L 100.0100, L501.2450, L501.4021, L500.4050 ####[facility] [address] [place], [address] MCV (RBC) [Entitic vol] 89.8 fL Normal 81-99 [facility] Comment on above: Performed By: #### L 100.0100, L501.2450, L501.4021, L500.4050 ####[facility] [address] [place], [address] Monocytes/100 WBC (Bld) 6.2 % Normal 0-10 [facility] Comment on above: Performed By: #### L 100.0100, L501.2450, L501.4021, L500.4050 ####[facility] [address] [place], [address] Neutrophils/100 WBC (Bld) 52.8 % Normal 47-70 [facility] Comment on above: Performed By: #### L 100.0100, L501.2450, L501.4021, L500.4050 ####[facility] [address] [place], [address] Nucleated RBC (Bld) [#/Vol] 0 10*3/uL Normal 0-5 [facility] Comment on above: Performed By: #### L 100.0100, L501.2450, L501.4021, L500.4050 ####[facility] [address] [place], [address] Platelet mean volume (Bld) [Entitic vol] 10.9 fL Normal 6.2-12.0 [facility] Comment on above: Performed By: #### L 100.0100, L501.2450, L501.4021, L500.4050 ####[facility] [address] [place], [address] Platelets (Bld) [#/Vol] 176 10*3/uL Normal 150-450 [facility] Comment on above: Performed By: #### L 100.0100, L501.2450, L501.4021, L500.4050 ####[facility] [address] [place], [address] RBC (Bld) [#/Vol] 4.41 10*6/uL Normal 4.2-5.[address] [facility] Comment on above: Performed By: #### L 100.0100, L501.2450, L501.4021, L500.4050 ####[facility] [address] [place], [address] RDW SD 44.3 fl High 35.1-43.9 [facility] Comment on above: Performed By: #### L 100.0100, L501.2450, L501.4021, L500.4050 ####[facility] [address] [place], [address] WBC (Bld) [#/Vol] 5.3 10*3/uL Normal 4.4-11.0 [facility] Comment on above: Performed By: #### L 100.0100, L501.2450, L501.4021, L500.4050 ####[facility] [address] [place], [address] CTA Chest W/WO Contraston CTA Chest W/WO Contrast Normal [facility] Carbon dioxide, total [Moles /volume] in Central venous bloodOrdered By: Margo Morris on 01-11-2025 CO2 [Moles/Vol] 22.6 mmol/L 21.0-32.0 [facility] Chest PA and Lateralon 01-11 Chest PA and Lateral Normal [facility] Chloride assayOrdered By: Annabella Morris on 01-11-2025 Chloride [Moles/Vol] 98 mmol/L 98-108 [facility] Comprehensive Metabolic Prof ilon 01-11-2025 Albumin [Mass/Vol] 4.2 g/dL Normal 3.5-5.0 [facility] Comment on above: Performed By: #### L 100.0100, L501.2450, L501.4021, L500.4050 ####[facility] [address] [place], [address] Albumin/Globulin [Mass ratio] 1.3 {ratio} Normal 0.9-2.4 [facility] Comment on above: Performed By: #### L 100.0100, L501.2450, L501.4021, L500.4050 ####[facility] [address] [place], [address] ALK PHOS 110 U/L High 35-104 [facility] Comment on above: Performed By: #### L 100.0100, L501.2450, L501.4021, L500.4050 ####[facility] [address] [place], [address] ALT [Catalytic activity/Vol] 20 U/L Normal <=34 [facility] Comment on above: Performed By: #### L 100.0100, L501.2450, L501.4021, L500.4050 ####[facility] [address] [place], [address] AST [Catalytic activity/Vol] 19 U/L Normal <=31 [facility] Comment on above: Performed By: #### L 100.0100, L501.2450, L501.4021, L500.4050 ####[facility] [address] [place], [address] Bilirubin [Mass/Vol] 0.70 mg/dL Normal 0.00-1.30 [facility] Comment on above: Performed By: #### L 100.0100, L501.2450, L501.4021, L500.4050 ####[facility] [address] [place], [address] BUN/CRE 21.8 RATIO High 10-20 [facility] Comment on above: Performed By: #### L 100.0100, L501.2450, L501.4021, L500.4050 ####[facility] [address] [place], [address] Calcium [Mass/Vol] 9.6 mg/dL Normal 7.6-11.0 [facility] Comment on above: Performed By: #### L 100.0100, L501.2450, L501.4021, L500.4050 ####[facility] [address] [place], [address] Chloride [Moles/Vol] 98 mmol/L Normal 98-108 [facility] Comment on above: Performed By: #### L 100.0100, L501.2450, L501.4021, L500.4050 ####[facility] [address] [place], [address] CO2 [Moles/Vol] 22.6 mmol/L Normal 21.0-32.0 [facility] Comment on above: Performed By: #### L 100.0100, L501.2450, L501.4021, L500.4050 ####[facility] [address] [place], [address] Creatinine [Mass/Vol] 0.94 mg/dL Normal 0.70-1.20 [facility] Comment on above: Performed By: #### L 100.0100, L501.2450, L501.4021, L500.4050 ####[facility] [address] [place], [address] ECRCL 76.58 ml/min Normal 50-250 [facility] Comment on above: Performed By: #### L 100.0100, L501.2450, L501.4021, L500.4050 ####[facility] [address] [place], [address] GAP 13 Normal 5-15 [facility] Comment on above: Performed By: #### L 100.0100, L501.2450, L501.4021, L500.4050 ####[facility] [address] [place], [address] GFR/1.73 sq M.predicted among non-blacks MDRD (S/P/Bld) [Vol rate/Area] 71 mL/min/{1.73_m2} Normal >60 [facility] Comment on above: Result Comment: mL/m in/1.73m2 CKD-EPI Creatinine Equation (2020) Performed By: #### L 100.0100, L501.2450, L501.4021, L500.4050 ####[facility] [address] [place], [address] Globulin (S) [Mass/Vol] 3.3 g/dL Normal 2.2-4.2 [facility] Comment on above: Performed By: #### L 100.0100, L501.2450, L501.4021, L500.4050 ####[facility] [address] [place], [address] Glucose [Mass/Vol] 370 mg/dL High 70-99 [facility] Comment on above: Performed By: #### L 100.0100, L501.2450, L501.4021, L500.4050 ####[facility] [address] [place], [address] Potassium [Moles/Vol] 3.6 mmol/L Normal 3.3-5.1 [facility] Comment on above: Performed By: #### L 100.0100, L501.2450, L501.4021, L500.4050 ####[facility] [address] [place], [address] Sodium [Moles/Vol] 134 mmol/L Normal 133-145 [facility] Comment on above: Performed By: #### L 100.0100, L501.2450, L501.4021, L500.4050 ####[facility] [address] [place], [address] T PROT 7.4 g/dL Normal 5.9-8.4 [facility] Comment on above: Performed By: #### L 100.0100, L501.2450, L501.4021, L500.4050 ####[facility] [address] [place], [address] Urea nitrogen [Mass/Vol] 21 mg/dL High 4-19 [facility] Comment on above: Performed By: #### L 100.0100, L501.2450, L501.4021, L500.4050 ####[facility] [address] [place], [address] Emergency Department Summary on 01-11-2025 Emergency Department Summary Normal [facility] Eosinophil percentageOrdered By: Margo Morris on 01-11-2025 Eosinophils/100 WBC (Bld) 0.9 % 0-5 [facility] Erythrocyte distribution wid th ratioOrdered By: Margo Morris on 01-11-2025 Erythrocyte distribution width (RBC) [Ratio] 13.6 % 11.6-14.6 [facility] Erythrocyte distribution wid th standard deviationOrdered By: Margo Morris on 01-11-2025 Erythrocyte distribution width (RBC) [Ratio] 44.3 fl High 35.1-43.9 [facility] Glomerular filtration rate ( GFR) estimation/1.73 sq m using serum, plasma, or whole bOrdered By: Margo Morris on 01-11-2025 GFR/1.73 sq M.predicted among non-blacks MDRD (S/P/Bld) [Vol rate/Area] 71 mL/min/{1.73_m2} >60 [facility] Hematocrit Auto (Bld) [Volum e fraction]Ordered By: Margo Morris on 01-11-2025 Hematocrit (Bld) [Volume fraction] 39.6 % 37-47 [facility] Hemoglobin measurementOrdere d By: Margo Morris on 01-11-2025 Hemoglobin (Bld) [Mass/Vol] 13.4 g/dL 12.0-15.0 [facility] Immature granulocytes/100 WB C Auto (Bld)Ordered By: Margo Morris on 01-11-2025 Immature granulocytes/100 WBC (Bld) 0.200 % 0.0-0.9 [facility] L501.4021on 01-11-2025 Trop T High Sen 7 ng/L Normal <=14 [facility] Comment on above: Performed By: #### L 100.0100, L501.2450, L501.4021, L500.4050 ####[facility] [address] [place], [place], [address] Lipaseon 01-11-2025 Lipase [Catalytic activity/Vol] 39 U/L Normal 13-75 [facility] Comment on above: Result Comment: Dipti villalba note:LIPASE revised reference range effective 22.New Lipase methodology. Expected to produce lower valuesthan the previous assay method.NEW Reference Range: 13 - 75 U/L Performed By: #### L 100.0100, L501.2450, L501.4021, L500.4050 ####[facility] [address] [place], [place], [address] MCV (mean corpuscular volume ) determinationOrdered By: Margo Morris on 01-11-2025 MCV (RBC) [Entitic vol] 89.8 fL 81-99 [facility] Mean corpuscular hemoglobin (MCH) determinationOrdered By: Margo Morris on 01-11-2025 MCH (RBC) [Entitic mass] 30.4 pg 27.0-32.0 [facility] Monocyte percentageOrdered B y: Margo Morris on 01-11-2025 Monocytes/100 WBC (Bld) 6.2 % 0-10 [facility] Natriuretic peptide.B prohor tiffanie N-Terminal [Mass/volume] in Serum or PlasmaOrdered By: AUGUSTUS Urena on 01-11-2025 Natriuretic peptide.B prohormone N-Terminal [Mass/Vol] 655 pg/mL <900 [facility] Neutrophil percentageOrdered By: Margo Morris on 01-11-2025 Neutrophils/100 WBC (Bld) 52.8 % 47-70 [facility] No Panel InformationOrdered By: Margo Morris on 01-11-2025 19 U/L <32 [facility] Platelet countOrdered By: Annabella Morris on 01-11-2025 Platelets (Bld) [#/Vol] 176 10*3/uL 150-450 [facility] Potassium measurement (mass/ volume)Ordered By: Margo Morris on 01-11-2025 Potassium (Unsp spec) [Mass/Vol] 3.6 mmol/L 3.3-5.1 [facility] Pro- Brain NATRIURETIC PEPTI Maddison 01-11-2025 Natriuretic peptide B (Bld) [Mass/Vol] 655 pg/mL Normal <=900 [facility] Comment on above: Order Comment: PT RE FUSED LABS FOR JEAN Result Comment: Hear t Failure Unlikely: < 300 pg/mLHeart Failure Likely< 50 Years: > 450 pg/mL50-75 Years: > 900 pg/mL>75 Years: > 1800 pg/mL Performed By: #### L 503.7505 ####[facility] [address] [place], [address] Pulmonary Visit Reporton Pulmonary Visit Report Normal [facility] RBC Auto (Bld) [#/Vol]Ordere d By: Margo Morris on 01-11-2025 RBC (Bld) [#/Vol] 4.41 10*6/uL 4.2-5.[address] [facility] Serum creatinine measurement (mass/volume)Ordered By: Margo Morris on 01-11-2025 Creatinine [Mass/Vol] 0.94 mg/dL 0.70-1.20 [facility] Serum globulin measurementOr dered By: Margo Morris on 01-11-2025 Globulin (S) [Mass/Vol] 3.3 g/dL 2.2-4.2 [facility] Serum glucose measurement (m ass/volume)Ordered By: Margo Morris on 01-11-2025 Glucose [Mass/Vol] 370 mg/dL High 70-99 [facility] Serum or plasma alanine jarquni otransferase (ALT) measurementOrdered By: Margo Morris on 01-11-2025 ALT [Catalytic activity/Vol] 20 U/L <35 [facility] Serum or plasma albumin oliver urement (mass/volume)Ordered By: Margo Morris on 01-11-2025 Albumin [Mass/Vol] 4.2 g/dL 3.5-5.0 [facility] Serum or plasma albumin/glob ulin mass ratioOrdered By: Margo Morris on 01-11-2025 Albumin/Globulin [Mass ratio] 1.3 {ratio} 0.9-2.4 [facility] Serum or plasma alkaline richard sphatase measurementOrdered By: Margo Morris on 01-11-2025 ALP [Catalytic activity/Vol] 110 U/L High 35-104 [facility] Serum or plasma calcium oliver urement (mass/volume)Ordered By: Margo Morris on 01-11-2025 Calcium [Mass/Vol] 9.6 mg/dL 7.6-11.0 [facility] Serum or plasma urea nitroge n measurement (mass/volume)Ordered By: Margo Morris on 01-11-2025 Urea nitrogen [Mass/Vol] 21 mg/dL High 4-19 [facility] Sodium levelOrdered By: Margo Morris on 01-11-2025 Sodium [Moles/Vol] 134 mmol/L 133-145 [facility] Total proteinOrdered By: Nicole Morris on 01-11-2025 Protein [Mass/Vol] 7.4 g/dL 5.9-8.4 [facility] Troponin T HS 2 HRon 025 Trop T High Sen 7 ng/L Normal <=14 [facility] Comment on above: Performed By: #### L 499.0042 ####[facility] [address] [facility] [place], [place], [id number] Troponin T HS 4 HRon 025 Trop T High Sen Normal <=14 [facility] Comment on above: Result Comment: Heidy healy via OM: Ordered Performed By: #### L 499.0043 ####[facility] [address] [facility] [place], [place], [id number]) Troponin T.cardiac [Mass/vol ume] in Serum or Plasma by High sensitivity methodOrdered By: Margo Morris on 01-11-2025 Troponin T.cardiac High sensitivity method [Mass/Vol] 7 ng/L <14 [facility] Troponin T.cardiac High sensitivity method [Mass/Vol] 7 ng/L <14 [facility] White blood cell (WBC) count Ordered By: Margo Morris on 01-11-2025 WBC (Bld) [#/Vol] 5.3 10*3/uL 4.4-11.0 [facility] 6 Minute Walk Teston 025 6 Minute Walk Test Normal [facility] L503.7505on 2024 Natriuretic peptide B (Bld) [Mass/Vol] 1648 pg/mL High <=900 [facility] Comment on above: Result Comment: Hear t Failure Unlikely: < 300 pg/mLHeart Failure Likely< 50 Years: > 450 pg/mL50-75 Years: > 900 pg/mL>75 Years: > 1800 pg/mL Performed By: #### L 503.7505 ####[facility] [address] [place], [address] Natriuretic peptide.B prohor tiffanie N-Terminal [Mass/volume] in Serum or PlasmaOrdered By: Herminio Magana on 2024 Natriuretic peptide.B prohormone N-Terminal [Mass/Vol] 1648 pg/mL High <900 [facility] Pulmonary Visit Reporton Pulmonary Visit Report Normal [facility] 12 Lead EKGon 12-06-2024 12 Lead EKG Normal [facility] Absolute lymphocyte countOrd ered By: Rell Loera on 12-06-2024 Lymphocytes Auto (Unsp spec) [#/Vol] 2.30 10*3/uL 0.83-4.51 [facility] Anion gap in Serum or Plasma Ordered By: Rell Loera on 12-06-2024 Anion gap [Moles/Vol] 12 mmol/L 5-15 [facility] Automated lymphocyte count a s percentage of total leukocytesOrdered By: Rell Loera on 12-06-2024 Lymphocytes/100 WBC Auto (Unsp spec) 22.5 % - [facility] BUN/creatinine ratioOrdered By: Rell Loera on 12-06-2024 Urea nitrogen/Creatinine [Mass ratio] 38.3 mg/mg High 10- [facility] Basic Metabolic Profile (BMP )on 12-06-2024 BUN/CRE 38.3 RATIO High 03-25 [facility] Comment on above: Performed By: #### L 500.2500, L100.0100 ####[facility] [address] [place], [address] Calcium [Mass/Vol] 8.8 mg/dL Normal 7.6-11.0 [facility] Comment on above: Performed By: #### L 500.2500, L100.0100 ####[facility] [address] [place], [address] Chloride [Moles/Vol] 100 mmol/L Normal 98-108 [facility] Comment on above: Performed By: #### L 500.2500, L100.0100 ####[facility] [address] [place], [place], [address] CO2 [Moles/Vol] 25.1 mmol/L Normal 21.0-32.0 [facility] Comment on above: Performed By: #### L 500.2500, L100.0100 ####[facility] [address] [place], [address] Creatinine [Mass/Vol] 0.84 mg/dL Normal 0.70-1.20 [facility] Comment on above: Performed By: #### L 500.2500, L100.0100 ####[facility] [address] [place], [address] ECRCL 87.34 ml/min Normal 50-250 [facility] Comment on above: Performed By: #### L 500.2500, L100.0100 ####[facility] [address] [place], [address] GAP 12 Normal 5-15 [facility] Comment on above: Performed By: #### L 500.2500, L100.0100 ####[facility] [address] [place], [address] GFR/1.73 sq M.predicted among non-blacks MDRD (S/P/Bld) [Vol rate/Area] 83 mL/min/{1.73_m2} Normal >60 [facility] Comment on above: Result Comment: mL/m in/1.73m2 CKD-EPI Creatinine Equation (2020) Performed By: #### L 500.2500, L100.0100 ####[facility] [address] [place], [address] Glucose [Mass/Vol] 224 mg/dL High 70-99 [facility] Comment on above: Performed By: #### L 500.2500, L100.0100 ####[facility] [address] [place], [address] Potassium [Moles/Vol] 3.9 mmol/L Normal 3.3-5.1 [facility] Comment on above: Result Comment: Hemo lysis present, Results??could be affected.?? Performed By: #### L 500.2500, L100.0100 ####[facility] [address] [place], [address] Sodium [Moles/Vol] 137 mmol/L Normal 133-145 [facility] Comment on above: Performed By: #### L 500.2500, L100.0100 ####[facility] [address] [place], [address] Urea nitrogen [Mass/Vol] 32 mg/dL High 4-19 [facility] Comment on above: Performed By: #### L 500.2500, L100.0100 ####[facility] [address] [place], [address] Basophil percentageOrdered B y: Rell Loera on 12-06-2024 Basophils/100 WBC (Bld) 0.2 % 0-1 [facility] CBC W/Diff, Automatedon Absolute Lymph 2.30 X10 3/uL Normal 0.83-4.51 [facility] Comment on above: Performed By: #### L 500.2500, L100.0100 ####[facility] [address] [place], [address] Absolute Neut 7.2 X10 3/uL Normal 2.0-7.7 [facility] Comment on above: Performed By: #### L 500.2500, L100.0100 ####[facility] [address] [place], [address] Basophils/100 WBC (Bld) 0.2 % Normal 0-1 [facility] Comment on above: Performed By: #### L 500.2500, L100.0100 ####[facility] [address] [place], [address] Eosinophils/100 WBC (Bld) 0.8 % Normal 0-5 [facility] Comment on above: Performed By: #### L 500.2500, L100.0100 ####[facility] [address] [place], [address] Erythrocyte distribution width (RBC) [Ratio] 14.1 % Normal 11.6-14.6 [facility] Comment on above: Performed By: #### L 500.2500, L100.0100 ####[facility] [address] [place], [address] Hematocrit (Bld) [Volume fraction] 40.8 % Normal 37-47 [facility] Comment on above: Performed By: #### L 500.2500, L100.0100 ####[facility] [address] [place], [address] Hemoglobin (Bld) [Mass/Vol] 13.3 g/dL Normal 12.0-15.0 [facility] Comment on above: Performed By: #### L 500.2500, L100.0100 ####[facility] [address] [place], [address] IG% 0.700 Normal 0.0-0.9 [facility] Comment on above: Result Comment: IG% - Immature Granulocytes (promyelocytes, myelocytes andmetamyelocytes) > 1% indicates that a LEFT SHIFT is Present. Performed By: #### L 500.2500, L100.0100 ####[facility] [address] [place], [address] Lymphocytes/100 WBC (Bld) 22.5 % Normal 19-41 [facility] Comment on above: Performed By: #### L 500.2500, L100.0100 ####[facility] [address] [place], [address] MCH (RBC) [Entitic mass] 30.5 pg Normal 27.0-32.0 [facility] Comment on above: Performed By: #### L 500.2500, L100.0100 ####[facility] [address] [place], [address] MCHC (RBC) [Mass/Vol] 32.6 g/dL Normal 32-36 [facility] Comment on above: Performed By: #### L 500.2500, L100.0100 ####[facility] [address] [place], [address] MCV (RBC) [Entitic vol] 93.6 fL Normal 81-99 [facility] Comment on above: Performed By: #### L 500.2500, L100.0100 ####[facility] [address] [place], [address] Monocytes/100 WBC (Bld) 5.4 % Normal 0-10 [facility] Comment on above: Performed By: #### L 500.2500, L100.0100 ####[facility] [address] [place], [address] Neutrophils/100 WBC (Bld) 70.4 % High 47-70 [facility] Comment on above: Performed By: #### L 500.2500, L100.0100 ####[facility] [address] [place], [address] Nucleated RBC (Bld) [#/Vol] 0 10*3/uL Normal 0-5 [facility] Comment on above: Performed By: #### L 500.2500, L100.0100 ####[facility] [address] [place], [address] Platelet mean volume (Bld) [Entitic vol] 10.9 fL Normal 6.2-12.0 [facility] Comment on above: Performed By: #### L 500.2500, L100.0100 ####[facility] [address] [place], [address] Platelets (Bld) [#/Vol] 234 10*3/uL Normal 150-450 [facility] Comment on above: Performed By: #### L 500.2500, L100.0100 ####[facility] [address] [place], [address] RBC (Bld) [#/Vol] 4.36 10*6/uL Normal 4.2-5.[address] [facility] Comment on above: Performed By: #### L 500.2500, L100.0100 ####[facility] [address] [place], [address] RDW SD 48.6 fl High 35.1-43.9 [facility] Comment on above: Performed By: #### L 500.2500, L100.0100 ####[facility] [address] [place], [address] WBC (Bld) [#/Vol] 10.2 10*3/uL Normal 4.4-11.[address] [facility] Comment on above: Performed By: #### L 500.2500, L100.0100 ####[facility] [address] [place], [address] Carbon dioxide, total [Moles /volume] in Central venous bloodOrdered By: Rell Loera on 12-06-2024 CO2 [Moles/Vol] 25.1 mmol/L 21.0-32.0 [facility] Chest PA and Lateralon 12-06 Chest PA and Lateral Normal [facility] Chloride assayOrdered By: Nataliya Loera on 12-06-2024 Chloride [Moles/Vol] 100 mmol/L 98-108 [facility] Emergency Department Summary on 12-06-2024 Emergency Department Summary Normal [facility] Eosinophil percentageOrdered By: Rell Loera on 12-06-2024 Eosinophils/100 WBC (Bld) 0.8 % 0-5 [facility] Erythrocyte distribution wid th ratioOrdered By: Rell Loera on 12-06-2024 Erythrocyte distribution width (RBC) [Ratio] 14.1 % 11.6-14.6 [facility] Erythrocyte distribution wid th standard deviationOrdered By: Rell Loera on 12-06-2024 Erythrocyte distribution width (RBC) [Ratio] 48.6 fl High 35.1-43.9 [facility] Glomerular filtration rate ( GFR) estimation/1.73 sq m using serum, plasma, or whole bOrdered By: Rell Loera on 12-06-2024 GFR/1.73 sq M.predicted among non-blacks MDRD (S/P/Bld) [Vol rate/Area] 83 mL/min/{1.73_m2} >60 [facility] Hematocrit Auto (Bld) [Volum e fraction]Ordered By: Rell Loera on 12-06-2024 Hematocrit (Bld) [Volume fraction] 40.8 % 37-47 [facility] Hemoglobin measurementOrdere d By: Rell Loera on 12-06-2024 Hemoglobin (Bld) [Mass/Vol] 13.3 g/dL 12.0-15.0 [facility] Immature granulocytes/100 WB C Auto (Bld)Ordered By: Rell Loera on 12-06-2024 Immature granulocytes/100 WBC (Bld) 0.700 % 0.0-0.9 [facility] L499.0042on 12-06-2024 Trop T High Sen < 6 Normal <=14 [facility] Comment on above: Performed By: #### L 499.0042 ####[facility] [address] [place], [address] L499.0043on 12-06-2024 Trop T High Sen Normal <=14 [facility] Comment on above: Result Comment: Canc elled via OM: Order cancelled - Patient discharged Performed By: #### L 499.0043 ####[facility] [address] [place], [address] L501.4021on 12-06-2024 Trop T High Sen 7 ng/L Normal <=14 [facility] Comment on above: Performed By: #### L 501.4021, L503.7505 ####[facility] [address] [place], [address] L503.7505on 12-06-2024 Natriuretic peptide B (Bld) [Mass/Vol] 507 pg/mL Normal <=900 [facility] Comment on above: Result Comment: Hear t Failure Unlikely: < 300 pg/mLHeart Failure Likely< 50 Years: > 450 pg/mL50-75 Years: > 900 pg/mL>75 Years: > 1800 pg/mL Performed By: #### L 501.4021, L503.7505 ####[facility] [address] [place], [address] MCV (mean corpuscular volume ) determinationOrdered By: Rell Loera on 12-06-2024 MCV (RBC) [Entitic vol] 93.6 fL 81-99 [facility] Mean corpuscular hemoglobin (MCH) determinationOrdered By: Rell Loera on 12-06-2024 MCH (RBC) [Entitic mass] 30.5 pg 27.0-32.0 [facility] Monocyte percentageOrdered B y: Rell Loera on 12-06-2024 Monocytes/100 WBC (Bld) 5.4 % 0-10 [facility] Natriuretic peptide.B prohor tiffanie N-Terminal [Mass/volume] in Serum or PlasmaOrdered By: Rell Loera on 12-06-2024 Natriuretic peptide.B prohormone N-Terminal [Mass/Vol] 507 pg/mL <900 [facility] Neutrophil percentageOrdered By: Rell Loera on 12-06-2024 Neutrophils/100 WBC (Bld) 70.4 % High 47-70 [facility] Platelet countOrdered By: Nataliya Loera on 12-06-2024 Platelets (Bld) [#/Vol] 234 10*3/uL 150-450 [facility] Potassium measurement (mass/ volume)Ordered By: Rell Loera on 12-06-2024 Potassium (Unsp spec) [Mass/Vol] 3.9 mmol/L 3.3-5.1 [facility] RBC Auto (Bld) [#/Vol]Ordere d By: Rell Loera on 12-06-2024 RBC (Bld) [#/Vol] 4.36 10*6/uL 4.2-5.[address] [facility] Serum creatinine measurement (mass/volume)Ordered By: Rell Loera on 12-06-2024 Creatinine [Mass/Vol] 0.84 mg/dL 0.70-1.20 [facility] Serum glucose measurement (m ass/volume)Ordered By: Rell Loera on 12-06-2024 Glucose [Mass/Vol] 224 mg/dL High 70-99 [facility] Serum or plasma calcium oliver urement (mass/volume)Ordered By: Rell Loera on 12-06-2024 Calcium [Mass/Vol] 8.8 mg/dL 7.6-11.0 [facility] Serum or plasma urea nitroge n measurement (mass/volume)Ordered By: Rell Loera on 12-06-2024 Urea nitrogen [Mass/Vol] 32 mg/dL High 4-19 [facility] Sodium levelOrdered By: Eduar Loera on 12-06-2024 Sodium [Moles/Vol] 137 mmol/L 133-145 [facility] Troponin T.cardiac [Mass/vol ume] in Serum or Plasma by High sensitivity methodOrdered By: Rell Loera on 12-06-2024 Troponin T.cardiac High sensitivity method [Mass/Vol] < 6 ng/L <14 [facility] Troponin T.cardiac High sensitivity method [Mass/Vol] 7 ng/L <14 [facility] White blood cell (WBC) count Ordered By: Rell Loera on 12-06-2024 WBC (Bld) [#/Vol] 10.2 10*3/uL 4.4-11.[address] [facility] Bedside Glucoseon 12-03-2024 FINGERSTICK GLU > 500 Invalid Interpretation Code 74-106 [facility] Comment on above: Result Comment: Repe at TestMANAGEMENT OF PATIENT CARE PER NURSING PROTOCOL Performed By: #### L 501.080 ####[facility] [address] [place], [place], [address] Result Comment: HILDA GEMENT OF PATIENT CARE PER NURSING PROTOCOL Urine Cultureon 12-03-2024 URC Below infection leve l. GPC Poss Enterococcus sp Dearing Count <1000 Normal [facility] Comment on above: Performed By: #### L 400.0001, M100.2200 ####[facility] [address] [place], [place], [address] Bedside Glucoseon 12-01-2024 FINGERSTICK GLU 405 mg/dL High 74-106 [facility] Comment on above: Result Comment: HILDA GEMENT OF PATIENT CARE PER NURSING PROTOCOL Performed By: #### L 501.080 ####[facility] [address] [place], [address] Calculated very low density lipoprotein (VLDL) cholesterol measurementOrdered By: Suma Mathew on 12-01-2024 Calculated very low density lipoprotein (VLDL) cholesterol measurement 18 mg/dL 5-40 [facility] Discharge Instructionon 11-05 Discharge Instruction Normal [facility] Echocardiogram study reportO rdered By: Estrellita Alarcon on 12-01-2024 Study report [facility] Work Phone: Free T3on 12-01-2024 Free T3 [Mass/Vol] 3.1 pg/mL Normal 2.18-3.98 [facility] Comment on above: Performed By: #### L 501.9520, L506.0400, L501.55472, L500.4100 ####[facility] [address] [place], [address] Free P2Jewdbqi By: Suma fenton on 12-01-2024 Free T3 [Mass/Vol] 3.1 pg/mL 2.18-3.98 [facility] Gl[facility] at [facility] deOrdered By: Aidan Staples on 12-01-2024 Glucose [Mass/Vol] 405 mg/dL High 74-106 [facility] LDL calc ser/plasOrdered By: Suma Mathew on 12-01-2024 Cholesterol in LDL [Mass/Vol] 89 mg/dL [facility] Lipid Profileon 12-01-2024 CHOL:HDL 2.30 Normal [facility] Comment on above: Performed By: #### L 501.9520, L506.0400, L501.13504, L500.4100 ####[facility] [address] [place], [address] Cholesterol [Mass/Vol] 188 mg/dL Normal <=200 [facility] Comment on above: Result Comment: Chol esterol level, Desirable <200 mg/dLBorderline high cholesterol 200-239 mg/dLHigh cholesterol >=240 mg/dLRecommendations of the NCEP Adult Treatment Panel for thefollowing risk-cutoff thresholds for the [place] Americanpulation. Performed By: #### L 501.9520, L506.0400, L501.83706, L500.4100 ####[facility] [address], [address] Cholesterol in HDL [Mass/Vol] 82 mg/dL Normal [facility] Comment on above: Result Comment: Malathi onal Cholesterol Education Program (NCEP) guidelines:<40 mg/dL: Low HDL-cholesterol (major risk factor for CHD)>= 60 mg/dL: High HDL-cholesterol (negative risk factor forCHD)HDL-cholesterol is affected by a number of factors, e.g.smoking, exercise, hormones, sex and age. Performed By: #### L 501.9520, L506.0400, L501.58519, L500.4100 ####[facility] [address] [place], [address] Cholesterol in LDL [Mass/Vol] 89 mg/dL Normal [facility] Comment on above: Result Comment: Bord phskee=482-790 mg/dL Higher Ulyi=646 mg/dL or greater Performed By: #### L 501.9520, L506.0400, L501.79454, L500.4100 ####[facility] [address] [place], [address] Cholesterol in VLDL [Mass/Vol] 18 mg/dL Normal 5-40 [facility] Comment on above: Performed By: #### L 501.9520, L506.0400, L501.10142, L500.4100 ####[facility] [address] [place], [address] Triglyceride [Mass/Vol] 88 mg/dL Normal [facility] Comment on above: Result Comment: The drugs N-Acetylcysteine and Metamizole may falselydepress this assay.Normal range: <150 mg/dLBorderline High: 150-199 mg/dLHigh: 200-499 mg/dLVery High: >500 mg/dL Performed By: #### L 501.9520, L506.0400, L501.32551, L500.4100 ####[facility] [address] [place], [address] RESPIRATORY PANEL MOLECULARo n 12-01-2024 RP PANEL Normal [facility] Comment on above: Performed By: #### M 100.638 ####[facility] [address] [place], [address] Serum or plasma cholesterol in HDL measurement (mass/volume)Ordered By: Suma Mathew on 12-01-2024 Cholesterol in HDL [Mass/Vol] 82 mg/dL >40 [facility] Serum or plasma cholesterol measurement (mass/volume)Ordered By: Suma Mathew on 12-01-2024 Cholesterol [Mass/Vol] 188 mg/dL <201 [facility] T4 Free Directon 12-01-2024 T4 FREE DIRECT 1.20 ng/dL Normal 0.76-1.46 [facility] Comment on above: Performed By: #### L 501.9520, L506.0400, L501.80344, L500.4100 ####[facility] [address] [place], [place], [address] T4 freeOrdered By: Suma fenton on 12-01-2024 Free T4 [Mass/Vol] 1.20 ng/dL 0.76-1.46 [facility] TSH DL <= 0.005 mIU/L QnOrde red By: Suma Mathew on 12-01-2024 TSH Qn 0.373 uIU/mL 0.300-4.200 [facility] Thyroid Stim Hormone (TSH)on 12-01-2024 TSH 0.373 uIU/mL Normal 0.300-4.200 [facility] Comment on above: Performed By: #### L 501.9520, L506.0400, L501.62761, L500.4100 ####[facility] [address] [place], [place], [address] Absolute lymphocyte countOrd ered By: Allen Meraz on 11-30-2024 Lymphocytes Auto (Unsp spec) [#/Vol] 2.22 10*3/uL 0.83-4.51 [facility] Anion gap in Serum or Plasma Ordered By: Allen Meraz on 11-30-2024 Anion gap [Moles/Vol] 11 mmol/L 5-15 [facility] Automated lymphocyte count a s percentage of total leukocytesOrdered By: Allen Meraz on 11-30-2024 Lymphocytes/100 WBC Auto (Unsp spec) 30.4 % 19-41 [facility] BUN/creatinine ratioOrdered By: Allen Meraz on 11-30-2024 Urea nitrogen/Creatinine [Mass ratio] 26.3 mg/mg High 10-20 [facility] Basic Metabolic Profile (BMP )on 11-30-2024 BUN/CRE 26.3 RATIO High 10-20 [facility] Comment on above: Performed By: #### L 501.4021, L300.8000, L500.2500, L100.0100 ####[facility] [address] [place], [address] Calcium [Mass/Vol] 8.4 mg/dL Normal 7.6-11.0 [facility] Comment on above: Performed By: #### L 501.4021, L300.8000, L500.2500, L100.0100 ####[facility] [address] [place], [address] Chloride [Moles/Vol] 105 mmol/L Normal 98-108 [facility] Comment on above: Performed By: #### L 501.4021, L300.8000, L500.2500, L100.0100 ####[facility] [address] [place], [address] CO2 [Moles/Vol] 20.1 mmol/L Low 21.0-32.0 [facility] Comment on above: Performed By: #### L 501.4021, L300.8000, L500.2500, L100.0100 ####[facility] [address] [place], [address] Creatinine [Mass/Vol] 0.85 mg/dL Normal 0.70-1.20 [facility] Comment on above: Performed By: #### L 501.4021, L300.8000, L500.2500, L100.0100 ####[facility] [address] [place], [address] ECRCL 87.65 ml/min Normal 50-250 [facility] Comment on above: Performed By: #### L 501.4021, L300.8000, L500.2500, L100.0100 ####[facility] [address] [place], [address] GAP 11 Normal 5-15 [facility] Comment on above: Performed By: #### L 501.4021, L300.8000, L500.2500, L100.0100 ####[facility] [address] [place], [address] GFR/1.73 sq M.predicted among non-blacks MDRD (S/P/Bld) [Vol rate/Area] 81 mL/min/{1.73_m2} Normal >60 [facility] Comment on above: Result Comment: mL/m in/1.73m2 CKD-EPI Creatinine Equation (2020) Performed By: #### L 501.4021, L300.8000, L500.2500, L100.0100 ####[facility] [address] [place], [address] Glucose [Mass/Vol] 300 mg/dL High 70-99 [facility] Comment on above: Performed By: #### L 501.4021, L300.8000, L500.2500, L100.0100 ####[facility] [address] [place], [address] Potassium [Moles/Vol] 4.4 mmol/L Normal 3.3-5.1 [facility] Comment on above: Result Comment: Hemo lysis present, Results??could be affected.?? Performed By: #### L 501.4021, L300.8000, L500.2500, L100.0100 ####[facility] [address] [place], [address] Sodium [Moles/Vol] 137 mmol/L Normal 133-145 [facility] Comment on above: Performed By: #### L 501.4021, L300.8000, L500.2500, L100.0100 ####[facility] [address] [place], [address] Urea nitrogen [Mass/Vol] 23 mg/dL High 4-19 [facility] Comment on above: Performed By: #### L 501.4021, L300.8000, L500.2500, L100.0100 ####[facility] [address] [place], [address] Basophil percentageOrdered B y: Allen Meraz on 11-30-2024 Basophils/100 WBC (Bld) 0.3 % 0-1 [facility] Bedside Glucoseon 11-30-2024 FINGERSTICK GLU 370 mg/dL High 74-106 [facility] Comment on above: Result Comment: HILDA PANIAGUA OF PATIENT CARE PER NURSING PROTOCOL Performed By: #### L 501.080 ####[facility] [address] [place], [address] Bilirubin Test strip Ql (U)O rdered By: Suma Mathew on 11-30-2024 Bilirubin Ql (U) Negative Negative [facility] CBC W/Diff, Automatedon 11-05 Absolute Lymph 2.22 X10 3/uL Normal 0.83-4.51 [facility] Comment on above: Performed By: #### L 501.4021, L300.8000, L500.2500, L100.0100 ####[facility] [address] [place], [address] Absolute Neut 4.5 X10 3/uL Normal 2.0-7.7 [facility] Comment on above: Performed By: #### L 501.4021, L300.8000, L500.2500, L100.0100 ####[facility] [address] [place], [address] Basophils/100 WBC (Bld) 0.3 % Normal 0-1 [facility] Comment on above: Performed By: #### L 501.4021, L300.8000, L500.2500, L100.0100 ####[facility] [address] [place], [address] Eosinophils/100 WBC (Bld) 1.9 % Normal 0-5 [facility] Comment on above: Performed By: #### L 501.4021, L300.8000, L500.2500, L100.0100 ####[facility] [address] [place], [address] Erythrocyte distribution width (RBC) [Ratio] 14.0 % Normal 11.6-14.6 [facility] Comment on above: Performed By: #### L 501.4021, L300.8000, L500.2500, L100.0100 ####[facility] [address] [place], [address] Hematocrit (Bld) [Volume fraction] 37.0 % Normal 37-47 [facility] Comment on above: Performed By: #### L 501.4021, L300.8000, L500.2500, L100.0100 ####[facility] [address] [place], [address] Hemoglobin (Bld) [Mass/Vol] 12.2 g/dL Normal 12.0-15.0 [facility] Comment on above: Performed By: #### L 501.4021, L300.8000, L500.2500, L100.0100 ####[facility] [address] [place], [address] IG% 0.300 Normal 0.0-0.9 [facility] Comment on above: Result Comment: IG% - Immature Granulocytes (promyelocytes, myelocytes andmetamyelocytes) > 1% indicates that a LEFT SHIFT is Present. Performed By: #### L 501.4021, L300.8000, L500.2500, L100.0100 ####[facility] [address] [place], [address] Lymphocytes/100 WBC (Bld) 30.4 % Normal 19-41 [facility] Comment on above: Performed By: #### L 501.4021, L300.8000, L500.2500, L100.0100 ####[facility] [address] [place], [address] MCH (RBC) [Entitic mass] 30.7 pg Normal 27.0-32.0 [facility] Comment on above: Performed By: #### L 501.4021, L300.8000, L500.2500, L100.0100 ####[facility] [address] [place], [address] MCHC (RBC) [Mass/Vol] 33.0 g/dL Normal 32-36 [facility] Comment on above: Performed By: #### L 501.4021, L300.8000, L500.2500, L100.0100 ####[facility] [address] [place], [address] MCV (RBC) [Entitic vol] 93.2 fL Normal 81-99 [facility] Comment on above: Performed By: #### L 501.4021, L300.8000, L500.2500, L100.0100 ####[facility] [address] [place], [address] Monocytes/100 WBC (Bld) 5.2 % Normal 0-10 [facility] Comment on above: Performed By: #### L 501.4021, L300.8000, L500.2500, L100.0100 ####[facility] [address] [place], [address] Neutrophils/100 WBC (Bld) 61.9 % Normal 47-70 [facility] Comment on above: Performed By: #### L 501.4021, L300.8000, L500.2500, L100.0100 ####[facility] [address] [place], [address] Nucleated RBC (Bld) [#/Vol] 0 10*3/uL Normal 0-5 [facility] Comment on above: Performed By: #### L 501.4021, L300.8000, L500.2500, L100.0100 ####[facility] [address] [place], [address] Platelet mean volume (Bld) [Entitic vol] 10.4 fL Normal 6.2-12.0 [facility] Comment on above: Performed By: #### L 501.4021, L300.8000, L500.2500, L100.0100 ####[facility] [address] [place], [address] Platelets (Bld) [#/Vol] 184 10*3/uL Normal 150-450 [facility] Comment on above: Performed By: #### L 501.4021, L300.8000, L500.2500, L100.0100 ####[facility] [address] [place], [address] RBC (Bld) [#/Vol] 3.97 10*6/uL Low 4.2-5.[address] [facility] Comment on above: Performed By: #### L 501.4021, L300.8000, L500.2500, L100.0100 ####[facility] [address] [place], [address] RDW SD 47.7 fl High 35.1-43.9 [facility] Comment on above: Performed By: #### L 501.4021, L300.8000, L500.2500, L100.0100 ####[facility] [address] [place], [address] WBC (Bld) [#/Vol] 7.3 10*3/uL Normal 4.4-11.0 [facility] Comment on above: Performed By: #### L 501.4021, L300.8000, L500.2500, L100.0100 ####[facility] [address] [place], [address] Carbon dioxide, total [Moles /volume] in Central venous bloodOrdered By: Allen Meraz on 11-30-2024 CO2 [Moles/Vol] 20.1 mmol/L Low 21.0-32.0 [facility] Chest 1 View (Portable)on Chest 1 View (Portable) Normal [facility] Chloride assayOrdered By: Erica Meraz on 11-30-2024 Chloride [Moles/Vol] 105 mmol/L 98-108 [facility] D-Dimer Quantitative (DVT/PE )on 11-30-2024 D-DIMER QUANT 0.49 FEU/ug/m Normal 0.27-0.49 [facility] Comment on above: Result Comment: NORM AL D-Dimer level (<0.50) indicates no DVT or PE. Performed By: #### L 501.4021, L300.8000, L500.2500, L100.0100 ####[facility] [address] [place], [place], [id number] Echo Complete W/ Contraston 11-30-2024 Echo Complete W/ Contrast Normal [facility] Emergency Department Summary on 11-30-2024 Emergency Department Summary Normal [facility] Eosinophil percentageOrdered By: Allen Meraz on 11-30-2024 Eosinophils/100 WBC (Bld) 1.9 % 0-5 [facility] Erythrocyte distribution wid th ratioOrdered By: Allen Meraz on 11-30-2024 Erythrocyte distribution width (RBC) [Ratio] 14.0 % 11.6-14.6 [facility] Erythrocyte distribution wid th standard deviationOrdered By: Allen Meraz on 11-30-2024 Erythrocyte distribution width (RBC) [Ratio] 47.7 fl High 35.1-43.9 [facility] Glomerular filtration rate ( GFR) estimation/1.73 sq m using serum, plasma, or whole bOrdered By: Allen Meraz on 11-30-2024 GFR/1.73 sq M.predicted among non-blacks MDRD (S/P/Bld) [Vol rate/Area] 81 mL/min/{1.73_m2} >60 [facility] H AND P Exam - Hospitaliston 11-30-2024 H&P Exam - Hospitalist Normal [facility] Hematocrit Auto (Bld) [Volum e fraction]Ordered By: Allen Meraz on 11-30-2024 Hematocrit (Bld) [Volume fraction] 37.0 % 37-47 [facility] Hemoglobin measurementOrdere d By: Allen Meraz on 11-30-2024 Hemoglobin (Bld) [Mass/Vol] 12.2 g/dL 12.0-15.0 [facility] Immature granulocytes/100 WB C Auto (Bld)Ordered By: Allen Meraz on 11-30-2024 Immature granulocytes/100 WBC (Bld) 0.300 % 0.0-0.9 [facility] Influenza virus A and B and SARS-CoV-2 (COVID-19) and Respiratory syncytial virus RNAOrdered By: Allen Meraz on 11-30-2024 SARS-CoV-2 (COVID-19) RNA ROSALIA+probe Ql (Unsp spec) [facility] Ketones Test strip Ql (U)Ord ered By: Suma Mathew on 11-30-2024 Ketones Ql (U) Negative Negative [facility] L499.0042on 11-30-2024 Trop T High Sen Normal <=14 [facility] Comment on above: Result Comment: Cannorris elled via OM: Ordered Performed By: #### L 499.0042 ####[facility] [address] [place], [address] L499.0043on 11-30-2024 Trop T High Sen Normal <=14 [facility] Comment on above: Result Comment: Cannorris elled via OM: Ordered Performed By: #### L 499.0043 ####[facility] [address] [place], [address] L501.4021on 11-30-2024 Trop T High Sen 7 ng/L Normal <=14 [facility] Comment on above: Performed By: #### L 501.4021, L300.8000, L500.2500, L100.0100 ####[facility] [address] [place], [address] L503.7505on 11-30-2024 Natriuretic peptide B (Bld) [Mass/Vol] 1366 pg/mL High <=900 [facility] Comment on above: Result Comment: Hear t Failure Unlikely: < 300 pg/mLHeart Failure Likely< 50 Years: > 450 pg/mL50-75 Years: > 900 pg/mL>75 Years: > 1800 pg/mL Performed By: #### L 503.7505 ####[facility] [address] [place], [address] M100.678on 11-30-2024 M100.678 Pending SARS-CoV-2 (COVID 19) Negative INFLUENZA A Negative INFLUENZA B Negative RSV PCR Negative Normal [facility] Comment on above: Performed By: #### M 100.678 ####[facility] [address] [place], [place], [id number] MCV (mean corpuscular volume ) determinationOrdered By: Allen Meraz on 11-30-2024 MCV (RBC) [Entitic vol] 93.2 fL 81-99 [facility] Mean corpuscular hemoglobin (MCH) determinationOrdered By: Allen Meraz on 11-30-2024 MCH (RBC) [Entitic mass] 30.7 pg 27.0-32.0 [facility] Monocyte percentageOrdered B y: Allen Meraz on 11-30-2024 Monocytes/100 WBC (Bld) 5.2 % 0-10 [facility] Mucus LM Ql (Urine sed)Order ed By: Suma Mathew on 11-30-2024 Mucus Ql (Urine sed) 0 SEEN /hpf [facility] Natriuretic peptide.B prohor tiffanie N-Terminal [Mass/volume] in Serum or PlasmaOrdered By: Allen Meraz on 11-30-2024 Natriuretic peptide.B prohormone N-Terminal [Mass/Vol] 1366 pg/mL High <900 [facility] Neutrophil percentageOrdered By: Allen Meraz on 11-30-2024 Neutrophils/100 WBC (Bld) 61.9 % 47-70 [facility] Nitrite Test strip Ql (U)Ord ered By: Suma Mathew on 11-30-2024 Nitrite Ql (U) Negative Negative [facility] Platelet countOrdered By: Erica Meraz on 11-30-2024 Platelets (Bld) [#/Vol] 184 10*3/uL 150-450 [facility] Potassium measurement (mass/ volume)Ordered By: Allen Meraz on 11-30-2024 Potassium (Unsp spec) [Mass/Vol] 4.4 mmol/L 3.3-5.1 [facility] Protein Test strip Ql (U)Ord ered By: Suma Mathew on 11-30-2024 Protein Ql (U) 15 mg/dl High Negative [facility] RBC Auto (Bld) [#/Vol]Ordere d By: Allen Meraz on 11-30-2024 RBC (Bld) [#/Vol] 3.97 10*6/uL Low 4.2-5.[address] [facility] Respiratory pathogens detect ion panel by molecular detection methodOrdered By: Suma Mathew on 11-30-2024 Respiratory pathogens DNA and RNA panel ROSALIA+probe (Resp) [facility] Serum creatinine measurement (mass/volume)Ordered By: Allen Meraz on 11-30-2024 Creatinine [Mass/Vol] 0.85 mg/dL 0.70-1.20 [facility] Serum glucose measurement (m ass/volume)Ordered By: Allen Meraz on 11-30-2024 Glucose [Mass/Vol] 300 mg/dL High 70-99 [facility] Serum or plasma calcium oliver urement (mass/volume)Ordered By: Allen Meraz on 11-30-2024 Calcium [Mass/Vol] 8.4 mg/dL 7.6-11.0 [facility] Serum or plasma urea nitroge n measurement (mass/volume)Ordered By: Allen Meraz on 11-30-2024 Urea nitrogen [Mass/Vol] 23 mg/dL High 4-19 [facility] Sodium levelOrdered By: Aly Meraz on 11-30-2024 Sodium [Moles/Vol] 137 mmol/L 133-145 [facility] Squamous epithelial cells de tection in urine sediment by light microscopyOrdered By: Suma Mathew on 11-30-2024 Epithelial cells.squamous LM Ql (Urine sed) 0 SEEN /hpf 5-10 [facility] Troponin T.cardiac [Mass/vol ume] in Serum or Plasma by High sensitivity methodOrdered By: Allen Meraz on 11-30-2024 Troponin T.cardiac High sensitivity method [Mass/Vol] 7 ng/L <14 [facility] Urinalysis, Completeon 11-30 BACTERIA 0 SEEN Normal None Seen [facility] Comment on above: Order Comment: CLEAN CATCH Performed By: #### L 400.0001, M100.2200 ####[facility] [address] [place], [address] EPI,SQUAMOUS 0 SEEN Normal 5-10 [facility] Comment on above: Order Comment: CLEAN CATCH Performed By: #### L 400.0001, M100.2200 ####[facility] [address] [place], [address] Mucus Ql (Urine sed) 0 SEEN Normal [facility] Comment on above: Order Comment: CLEAN CATCH Performed By: #### L 400.0001, M100.0 ####[facility] [address] [place], [address] RBC 0 SEEN Normal 0-5 [facility] Comment on above: Order Comment: CLEAN CATCH Performed By: #### L 400.0001, M100.2200 ####[facility] [address] [place], [address] WBC 0 SEEN Normal 0-5 [facility] Comment on above: Order Comment: CLEAN CATCH Performed By: #### L 400.0001, M100.2200 ####[facility] [address] [place], [address] Urine clarityOrdered By: Blair Mathew on 11-30-2024 Clarity (U) Clear Clear [facility] Urine color determinationOrd ered By: Suma Mathew on 11-30-2024 Color (U) Straw Yellow [facility] Urine cultureOrdered By: Blair Mathew on 11-30-2024 Bacteria identified Cx Nom (U) GPC Poss Enterococcus sp Abnormal [facility] Urine glucose detectionOrder ed By: Suma Mathew on 11-30-2024 Glucose Ql (U) 100 mg/dl High Normal [facility] Urine leukocyte esterase det ection by dipstickOrdered By: Suma Mathew on 11-30-2024 Leukocyte esterase Test strip Ql (U) Negative Negative [facility] Urine pHOrdered By: Suma young on 11-30-2024 pH (U) 6.5 [pH] 5.0 - 8.0 [facility] Urine sediment bacteria coun t by microscopy (number/high power field)Ordered By: Suma Mathew on 11-30-2024 Bacteria LM.HPF (Urine sed) [#/Area] 0 /[HPF] None Seen [facility] Urine specific gravity measu rementOrdered By: Suma Mathew on 11-30-2024 Specific gravity (U) [Rel density] 1.010 1.002-1.030 [facility] Urine urobilinogen measureme ntOrdered By: Suma Mathew on 11-30-2024 Urobilinogen Ql (U) Normal mg/dl Normal [facility] White blood cell (WBC) count Ordered By: Allen Meraz on 11-30-2024 WBC (Bld) [#/Vol] 7.3 10*3/uL 4.4-11.0 [facility] White blood cell countOrdere d By: Suma Mathew on 11-30-2024 White blood cell count 0 SEEN /hpf 0-5 [facility] Endocrinology Visit Reporton 11-07-2024 Endocrinology Visit Report Normal [facility] 12 Lead EKGon 10-15-2024 12 Lead EKG Normal [facility] Absolute lymphocyte countOrd ered By: ED PROVIDER on 10-15-2024 Lymphocytes Auto (Unsp spec) [#/Vol] 1.70 10*3/uL 0.83-4.51 [facility] Absolute neutrophil countOrd ered By: ED PROVIDER on 10-15-2024 Neutrophils (Bld) [#/Vol] 4.2 10*3/uL 2.0-7.7 [facility] Anion gap in Serum or Plasma Ordered By: ED PROVIDER on 10-15-2024 Anion gap [Moles/Vol] 10 mmol/L 5-15 [facility] Automated blood erythrocyte countOrdered By: ED PROVIDER on 10-15-2024 RBC (Bld) [#/Vol] 4.07 10*6/uL Low 4.2-5.[address] [facility] Comment on above: Performed By: #### L 100.0100, L500.2500, L501.4021 ####[facility] [address] [place], [address] Automated blood hematocrit ( percentage)Ordered By: ED PROVIDER on 10-15-2024 Hematocrit (Bld) [Volume fraction] 37.8 % Normal 37-47 [facility] Comment on above: Performed By: #### L 100.0100, L500.2500, L501.4021 ####[facility] [address] [place], [address] Automated lymphocyte count a s percentage of total leukocytesOrdered By: ED PROVIDER on 10-15-2024 Lymphocytes/100 WBC Auto (Unsp spec) 26.7 % - [facility] BUN/creatinine ratioOrdered By: ED PROVIDER on 10-15-2024 Urea nitrogen/Creatinine [Mass ratio] 17.9 mg/mg - [facility] Basic Metabolic Profile (BMP )on 10-15-2024 BUN/CRE 17.9 RATIO Normal - [facility] Comment on above: Performed By: #### L 100.0100, L500.2500, L501.4021 ####[facility] [address] [place], [address] Calcium [Mass/Vol] 9.3 mg/dL Normal 7.6-11.0 [facility] Comment on above: Performed By: #### L 100.0100, L500.2500, L501.4021 ####[facility] [address] [place], [address] Chloride [Moles/Vol] 106 mmol/L Normal 98-108 [facility] Comment on above: Performed By: #### L 100.0100, L500.2500, L501.4021 ####[facility] [address] [place], [address] CO2 [Moles/Vol] 22.0 mmol/L Normal 21.0-32.0 [facility] Comment on above: Performed By: #### L 100.0100, L500.2500, L501.4021 ####[facility] [address] [place], [address] Creatinine [Mass/Vol] 1.35 mg/dL High 0.70-1.20 [facility] Comment on above: Performed By: #### L 100.0100, L500.2500, L501.4021 ####[facility] [address] [place], [address] ECRCL 53.30 ml/min Normal 50-250 [facility] Comment on above: Performed By: #### L 100.0100, L500.2500, L501.4021 ####[facility] [address] [place], [address] GAP 10 Normal 5-15 [facility] Comment on above: Performed By: #### L 100.0100, L500.2500, L501.4021 ####[facility] [address] [place], [address] GFR/1.73 sq M.predicted among non-blacks MDRD (S/P/Bld) [Vol rate/Area] 47 mL/min/{1.73_m2} Low >60 [facility] Comment on above: Result Comment: mL/m in/1.73m2 CKD-EPI Creatinine Equation (2020) Performed By: #### L 100.0100, L500.2500, L501.4021 ####[facility] [address] [place], [address] Glucose [Mass/Vol] 203 mg/dL High 70-99 [facility] Comment on above: Performed By: #### L 100.0100, L500.2500, L501.4021 ####[facility] [address] [place], [address] Potassium [Moles/Vol] 4.1 mmol/L Normal 3.3-5.1 [facility] Comment on above: Performed By: #### L 100.0100, L500.2500, L501.4021 ####[facility] [address] [place], [address] Sodium [Moles/Vol] 138 mmol/L Normal 133-145 [facility] Comment on above: Performed By: #### L 100.0100, L500.2500, L501.4021 ####[facility] [address] [place], [address] Urea nitrogen [Mass/Vol] 24 mg/dL High 4-19 [facility] Comment on above: Performed By: #### L 100.0100, L500.2500, L501.4021 ####[facility] [address] [place], [address] Basophil percentageOrdered B y: ED PROVIDER on 10-15-2024 Basophils/100 WBC (Bld) 0.3 % Normal 0-1 [facility] Comment on above: Performed By: #### L 100.0100, L500.2500, L501.4021 ####[facility] [address] [place], [address] CBC W/Diff, Automatedon 10-04 Absolute Lymph 1.70 X10 3/uL Normal 0.83-4.51 [facility] Comment on above: Performed By: #### L 100.0100, L500.2500, L501.4021 ####[facility] [address] [place], [address] Absolute Neut 4.2 X10 3/uL Normal 2.0-7.7 [facility] Comment on above: Performed By: #### L 100.0100, L500.2500, L501.4021 ####[facility] [address] [place], [address] IG% 0.300 Normal 0.0-0.9 [facility] Comment on above: Result Comment: IG% - Immature Granulocytes (promyelocytes, myelocytes andmetamyelocytes) > 1% indicates that a LEFT SHIFT is Present. Performed By: #### L 100.0100, L500.2500, L501.4021 ####[facility] [address] [place], [address] Lymphocytes/100 WBC (Bld) 26.7 % Normal 19-41 [facility] Comment on above: Performed By: #### L 100.0100, L500.2500, L501.4021 ####[facility] [address] [place], [address] Nucleated RBC (Bld) [#/Vol] 0 10*3/uL Normal 0-5 [facility] Comment on above: Performed By: #### L 100.0100, L500.2500, L501.4021 ####[facility] [address] [place], [address] RDW SD 51.8 fl High 35.1-43.9 [facility] Comment on above: Performed By: #### L 100.0100, L500.2500, L501.4021 ####[facility] [address] [place], [address] Carbon dioxide, total [Moles /volume] in Central venous bloodOrdered By: ED PROVIDER on 10-15-2024 CO2 [Moles/Vol] 22.0 mmol/L 21.0-32.0 [facility] Chest 1 View (Portable)on Chest 1 View (Portable) Normal [facility] Chloride assayOrdered By: ED PROVIDER on 10-15-2024 Chloride [Moles/Vol] 106 mmol/L 98-108 [facility] Emergency Department Summary on 10-15-2024 Emergency Department Summary Normal [facility] Eosinophil percentageOrdered By: ED PROVIDER on 10-15-2024 Eosinophils/100 WBC (Bld) 0.6 % Normal 0-5 [facility] Comment on above: Performed By: #### L 100.0100, L500.2500, L501.4021 ####[facility] [address] [place], [address] Erythrocyte distribution wid th ratioOrdered By: ED PROVIDER on 10-15-2024 Erythrocyte distribution width (RBC) [Ratio] 15.1 % High 11.6-14.6 [facility] Comment on above: Performed By: #### L 100.0100, L500.2500, L501.4021 ####[facility] [address] [place], [address] Erythrocyte distribution wid th standard deviationOrdered By: ED PROVIDER on 10-15-2024 Erythrocyte distribution width (RBC) [Ratio] 51.8 fl High 35.1-43.9 [facility] Glomerular filtration rate ( GFR) estimation/1.73 sq m using serum, plasma, or whole bOrdered By: ED PROVIDER on 10-15-2024 GFR/1.73 sq M.predicted among non-blacks MDRD (S/P/Bld) [Vol rate/Area] 47 mL/min/{1.73_m2} Low >60 [facility] Comment on above: mL/min/1.73m2 CKD-EP I Creatinine Equation (2020) Hemoglobin measurementOrdere d By: ED PROVIDER on 10-15-2024 Hemoglobin (Bld) [Mass/Vol] 12.7 g/dL Normal 12.0-15.0 [facility] Comment on above: Performed By: #### L 100.0100, L500.2500, L501.4021 ####[facility] [address] [place], [address] Immature granulocytes/100 WB C Auto (Bld)Ordered By: ED PROVIDER on 10-15-2024 Immature granulocytes/100 WBC (Bld) 0.300 % 0.0-0.9 [facility] Comment on above: IG% - Immature Granu locytes (promyelocytes, myelocytes and metamyelocytes) > 1% indicates that a LEFT SHIFT is Present. L499.0042on 10-15-2024 Trop T High Sen 10 ng/L Normal <=14 [facility] Comment on above: Performed By: #### L 499.0042 ####[facility] [address] [place], [address] L499.0043on 10-15-2024 Trop T High Sen Normal <=14 [facility] Comment on above: Result Comment: Canc elled via OM: Order cancelled - Patient discharged Performed By: #### L 499.0043 ####[facility] [address] [place], [address] L501.4021on 10-15-2024 Trop T High Sen 10 ng/L Normal <=14 [facility] Comment on above: Performed By: #### L 100.0100, L500.2500, L501.4021 ####[facility] [address] [place], [address] MCV (mean corpuscular volume ) determinationOrdered By: ED PROVIDER on 10-15-2024 MCV (RBC) [Entitic vol] 92.9 fL Normal 81-99 [facility] Comment on above: Performed By: #### L 100.0100, L500.2500, L501.4021 ####[facility] [address] [place], [address] Mean corpuscular hemoglobin (MCH) determinationOrdered By: ED PROVIDER on 10-15-2024 MCH (RBC) [Entitic mass] 31.2 pg Normal 27.0-32.0 [facility] Comment on above: Performed By: #### L 100.0100, L500.2500, L501.4021 ####[facility] [address] [place], [address] Mean corpuscular hemoglobin concentration (MCHC) determinationOrdered By: ED PROVIDER on 10-15-2024 MCHC (RBC) [Mass/Vol] 33.6 g/dL Normal 32-36 [facility] Comment on above: Performed By: #### L 100.0100, L500.2500, L501.4021 ####[facility] [address] [place], [address] Mean platelet volume determi nationOrdered By: ED PROVIDER on 10-15-2024 Platelet mean volume (Bld) [Entitic vol] 10.0 fL Normal 6.2-12.0 [facility] Comment on above: Performed By: #### L 100.0100, L500.2500, L501.4021 ####[facility] [address] [place], [address] Monocyte percentageOrdered B y: ED PROVIDER on 10-15-2024 Monocytes/100 WBC (Bld) 6.6 % Normal 0-10 [facility] Comment on above: Performed By: #### L 100.0100, L500.2500, L501.4021 ####[facility] [address] [place], [address] Neutrophil percentageOrdered By: ED PROVIDER on 10-15-2024 Neutrophils/100 WBC (Bld) 65.5 % Normal 47-70 [facility] Comment on above: Performed By: #### L 100.0100, L500.2500, L501.4021 ####[facility] [address] [place], [address] Nucleated red blood cell per centageOrdered By: ED PROVIDER on 10-15-2024 Nucleated RBC/100 WBC (Bld) [Ratio] 0 % 0-5 [facility] Platelet countOrdered By: ED PROVIDER on 10-15-2024 Platelets (Bld) [#/Vol] 175 10*3/uL Normal 150-450 [facility] Comment on above: Performed By: #### L 100.0100, L500.2500, L501.4021 ####[facility] [address] [place], [place], [address] Potassium measurement (mass/ volume)Ordered By: ED PROVIDER on 10-15-2024 Potassium (Unsp spec) [Mass/Vol] 4.1 mmol/L 3.3-5.1 [facility] Serum creatinine measurement (mass/volume)Ordered By: ED PROVIDER on 10-15-2024 Creatinine [Mass/Vol] 1.35 mg/dL High 0.70-1.20 [facility] Serum glucose measurement (m ass/volume)Ordered By: ED PROVIDER on 10-15-2024 Glucose [Mass/Vol] 203 mg/dL High 70-99 [facility] Serum or plasma calcium oliver urement (mass/volume)Ordered By: ED PROVIDER on 10-15-2024 Calcium [Mass/Vol] 9.3 mg/dL 7.6-11.0 [facility] Serum or plasma urea nitroge n measurement (mass/volume)Ordered By: ED PROVIDER on 10-15-2024 Urea nitrogen [Mass/Vol] 24 mg/dL High 4-19 [facility] Sodium levelOrdered By: ED Sally LACY on 10-15-2024 Sodium [Moles/Vol] 138 mmol/L 133-145 [facility] Troponin T.cardiac [Mass/vol ume] in Serum or Plasma by High sensitivity methodOrdered By: Arjun Ortez on 10-15-2024 Troponin T.cardiac High sensitivity method [Mass/Vol] 10 ng/L <14 [facility] Troponin T.cardiac [Mass/vol ume] in Serum or Plasma by High sensitivity methodOrdered By: ED PROVIDER on 10-15-2024 Troponin T.cardiac High sensitivity method [Mass/Vol] 10 ng/L <14 [facility] White blood cell (WBC) count Ordered By: ED PROVIDER on 10-15-2024 WBC (Bld) [#/Vol] 6.4 10*3/uL Normal 4.4-11.0 [facility] Comment on above: Performed By: #### L 100.0100, L500.2500, L501.4021 ####[facility] [address] [place], [address] L3410.9992on 09-30-2024 [facility] Misc. COMMENT Normal . [facility] Comment on above: Order Comment: [id number] Result Comment: Test Ordered: [id number] A39-Ujxbwo+NL1Lmzapmyahrbe Screen, Urine Negative ng/mL UI Reference Range: Gnfcrs=355Szecdchulbc test includes Amphetamine and Methamphetamine.Barbiturates Negative ng/mL UI Reference Range: Klrhqx=789Gjyazrjwsvdnste Negative ng/mL UI Reference Range: Uhggjz=427Hrarcia (Metab.), Urine Negative ng/mL UI Reference Range: Wxggpp=170Drgjdpy Note: ng/mL UI See Final Results Reference Range: Jynnlo=272Ksmfff test includes Codeine, Morphine, Hydromorphone, Hydrocodone.Opiates Positive [A ] UI Reference Range: Hfiqmu=186Ccgeph test includes Codeine, Morphine, Hydromorphone, Hydrocodone.Codeine Negative UI Reference Range: Nnosyx=426Rfrjjeoq Negative UI Reference Range: Gtoodl=347Ilealkgdaxyjt Positive [A ] UI Reference Range: .Hydromorphone Conf, MS, UR 108 ng/mL UI Reference Range: Jznvwk=768Jbdttvhuinu Positive [A ] UI Reference Range: .Hydrocodone Conf, MS, UR 553 ng/mL UI Reference Range: Garroc=1519-Zztdnqggqrmfhl, Urine Negative ng/mL UI Reference Range: Cutoff=10Oxycodone/Oxymorphone, Urine Negative ng/mL UI Reference Range: Udllji=530Fzcd includes Oxycodone and OxymorphonePCP, Urine Negative ng/mL UI Reference Range: Cutoff=25Methadone Screen, Urine Negative ng/mL UI Reference Range: Uozklp=016Uqmpjyqydlgv, Urine Negative ng/mL UI Reference Range: Kjujfg=272Crbvnfod, Urine Negative ng/mL UI Reference Range: Cutoff=2.0Test includes Fentanyl and NorfentanylThis test was developed and its performance characteristicsdetermined by [facility]. It has not been cleared orapproved by the Food and Drug Administration.Tramadol Negative ng/mL UI Reference Range: Rebjes=244Pcaertkshbtcl, Urine Negative ng/mL UI Reference Range: Cutoff=10Creatinine, Urine 74.4 mg/dL UI Reference Range: 20.0-300.0pH, Urine 5.4 UI Reference Range: 4.5-8.9Performed at: UI - [facility] [id number] [place], [place] [id number] Director: Rand Jaquez PhD, Phone: [phone] at: CB - [facility] [address] [id number] Director: Vargas Kim PhD, Phone: [phone] Performed By: #### L 3410.9992, L505.5000 ####[facility] [address] [place], [place], [id number] Amphetamine detection with 1 000 ng/mL as cutoffOrdered By: Darline Solano on 09-25-2024 Amphetamines Screen method >1000 ng/mL Ql (U) Negative < 200 ng/mL [facility] Amphetamines Screen method > 1000 ng/mL Ql (U)Ordered By: Darline Solano on 09-25-2024 Amphetamines Ql (U) Negative <1000 ng/mL [facility] Urine Barbiturates Screen Negative < 200 ng/mL [facility] Methadone, urineOrdered By: Darline Solano on 09-25-2024 Urine Methadone Screen Negative < 300 ng/mL [facility] No Panel InformationOrdered By: Darline Solano on 09-25-2024 Urine Buprenorphine Qualitative Negative < 200 ng/mL [facility] Urine Oxycodone Screen Negative < 100 ng/mL [facility] Negative < 200 ng/mL [facility] Quantitative urine opiates m easurementOrdered By: Darline Solano on 09-25-2024 Opiates Ql (U) Positive < 300 ng/mL [facility] Comment on above: If confirmation test ing is needed, a separate order will be required to send out testing to the reference laboratory. Screening urine fentanyl satish surementOrdered By: Darline Solano on 09-25-2024 fentaNYL Screen Ql (U) Negative [facility] Urine Drug Screen (VISTA)on 09-25-2024 AMPHETAMINES Negative Normal <1000 ng/mL [facility] Comment on above: Order Comment: MEDTO X Performed By: #### L 3410.9992, L505.5000 ####[facility] [address] [place], [address] BARBITIURATES Negative Normal < 200 ng/mL [facility] Comment on above: Order Comment: MEDTO X Performed By: #### L 3410.9992, L505.5000 ####[facility] [address] [place], [address] BENZODIAZIPINE Negative Normal < 200 ng/mL [facility] Comment on above: Order Comment: MEDTO X Performed By: #### L 3410.9992, L505.5000 ####[facility] [address] [place], [address] BUP Ur Drug Scr Negative Normal < 200 ng/mL [facility] Comment on above: Order Comment: MEDTO X Performed By: #### L 3410.9992, L505.5000 ####[facility] [address] [place], [address] COCAINE Negative Normal < 300 ng/mL [facility] Comment on above: Order Comment: MEDTO X Performed By: #### L 3410.9992, L505.5000 ####[facility] [address] [place], [address] Fentanyl Negative Normal [facility] Comment on above: Order Comment: MEDTO X Performed By: #### L 3410.9992, L505.5000 ####[facility] [address] [place], [address] METHADONE Negative Normal < 300 ng/mL [facility] Comment on above: Order Comment: MEDTO X Performed By: #### L 3410.9992, L505.5000 ####[facility] [address] [place], [address] OPIATES Positive Normal < 300 ng/mL [facility] Comment on above: Order Comment: MEDTO X Result Comment: If c onfirmation testing is needed, a separate order will berequired to send out testing to the reference laboratory. Performed By: #### L 3410.9992, L505.5000 ####[facility] [address] [place], [address] OXYCODONE Negative Normal < 100 ng/mL [facility] Comment on above: Order Comment: MEDTO X Performed By: #### L 3410.9992, L505.5000 ####[facility] [address] [place], [address] PCP Negative Normal < 25 ng/mL [facility] Comment on above: Order Comment: MEDTO X Performed By: #### L 3410.9992, L505.5000 ####[facility] [address] [place], [address] THC Negative Normal < 50 ng/mL [facility] Comment on above: Order Comment: MEDTO X Performed By: #### L 3410.9992, L505.5000 ####[facility] [address] [place], [address] Urine benzodiazepine levelOr dered By: Darline Basali on 09-25-2024 Benzodiazepines Ql (U) Negative < 200 ng/mL [facility] Urine cocaine levelOrdered B y: Mehranman Basali on 09-25-2024 Cocaine Ql (U) Negative < 300 ng/mL [facility] Urine dlamj-8-epqawqruiggnxj abinol (THC) measurementOrdered By: Darline Basali on 09-25-2024 Cannabinoids Screen Ql (U) Negative < 50 ng/mL [facility] Urine phencyclidine (PCP) de tectionOrdered By: Darline Basali on 09-25-2024 Phencyclidine Ql (U) Negative < 25 ng/mL [facility] fentaNYL Screen Ql (U)Ordere d By: Darline Basali on 09-25-2024 Urine Fentanyl Screen Negative [facility] Thyroidon 09-24-2024 Thyroid Normal [facility] Endocrinology Visit Reporton 09-12-2024 Endocrinology Visit Report Normal [facility] Anion gap in Serum or Plasma Ordered By: Jamie Manrique on 09-11-2024 Anion gap [Moles/Vol] 13 mmol/L 5-15 [facility] BUN/creatinine ratioOrdered By: Jamie Manrique on 09-11-2024 Urea nitrogen/Creatinine [Mass ratio] 39.6 mg/mg High - [facility] Basic Metabolic Profile (BMP )on 09-11-2024 BUN/CRE 39.6 RATIO High - [facility] Comment on above: Performed By: #### L 500.2500, L100.0500 ####[facility] [address] [place], [address] Calcium [Mass/Vol] 8.9 mg/dL Normal 7.6-11.0 [facility] Comment on above: Performed By: #### L 500.2500, L100.0500 ####[facility] [address] [place], [address] Chloride [Moles/Vol] 103 mmol/L Normal 98-108 [facility] Comment on above: Performed By: #### L 500.2500, L100.0500 ####[facility] [address] [place], [address] CO2 [Moles/Vol] 19.3 mmol/L Low 21.0-32.0 [facility] Comment on above: Performed By: #### L 500.2500, L100.0500 ####[facility] [address] [place], [address] Creatinine [Mass/Vol] 0.87 mg/dL Normal 0.70-1.20 [facility] Comment on above: Performed By: #### L 500.2500, L100.0500 ####[facility] [address] [place], [address] ECRCL 83.30 ml/min Normal 50-250 [facility] Comment on above: Performed By: #### L 500.2500, L100.0500 ####[facility] [address] [place], [address] GAP 13 Normal 5-15 [facility] Comment on above: Performed By: #### L 500.2500, L100.0500 ####[facility] [address] [place], [address] GFR/1.73 sq M.predicted among non-blacks MDRD (S/P/Bld) [Vol rate/Area] 80 mL/min/{1.73_m2} Normal >60 [facility] Comment on above: Result Comment: mL/m in/1.73m2 CKD-EPI Creatinine Equation (2020) Performed By: #### L 500.2500, L100.0500 ####[facility] [address] [place], [address] Glucose [Mass/Vol] 344 mg/dL High 70-99 [facility] Comment on above: Performed By: #### L 500.2500, L100.0500 ####[facility] [address] [place], [address] Potassium [Moles/Vol] 4.3 mmol/L Normal 3.3-5.1 [facility] Comment on above: Result Comment: Hemo lysis present, Results??could be affected.?? Performed By: #### L 500.2500, L100.0500 ####[facility] [address] [place], [address] Sodium [Moles/Vol] 135 mmol/L Normal 133-145 [facility] Comment on above: Performed By: #### L 500.2500, L100.0500 ####[facility] [address] [place], [address] Urea nitrogen [Mass/Vol] 34 mg/dL High 4-19 [facility] Comment on above: Performed By: #### L 500.2500, L100.0500 ####[facility] [address] [place], [address] Bedside Glucoseon 09-11-2024 FINGERSTICK GLU 455 mg/dL Invalid Interpretation Code 74-106 [facility] Comment on above: Result Comment: HILDA GEMENT OF PATIENT CARE PER NURSING PROTOCOL Performed By: #### L 501.080 ####[facility] [address] [place], [address] FINGERSTICK GLU 343 mg/dL High 74-106 [facility] Comment on above: Result Comment: HILDA GEMENT OF PATIENT CARE PER NURSING PROTOCOL Performed By: #### L 501.080 ####[facility] [address] [place], [address] FINGERSTICK GLU 254 mg/dL High 74-106 [facility] Comment on above: Result Comment: HILDA GEMENT OF PATIENT CARE PER NURSING PROTOCOL Performed By: #### L 501.080 ####[facility] [address] [place], [address] CBC-Complete Blood Cnt No Di ffon 09-11-2024 Erythrocyte distribution width (RBC) [Ratio] 13.0 % Normal 11.6-14.6 [facility] Comment on above: Performed By: #### L 500.2500, L100.0500 ####[facility] [address] [place], [address] Hematocrit (Bld) [Volume fraction] 39.8 % Normal 37-47 [facility] Comment on above: Performed By: #### L 500.2500, L100.0500 ####[facility] [address] [place], [address] Hemoglobin (Bld) [Mass/Vol] 13.5 g/dL Normal 12.0-15.0 [facility] Comment on above: Performed By: #### L 500.2500, L100.0500 ####[facility] [address] [place], [address] MCH (RBC) [Entitic mass] 30.3 pg Normal 27.0-32.0 [facility] Comment on above: Performed By: #### L 500.2500, L100.0500 ####[facility] [address] [place], [address] MCHC (RBC) [Mass/Vol] 33.9 g/dL Normal 32-36 [facility] Comment on above: Performed By: #### L 500.2500, L100.0500 ####[facility] [address] [place], [address] MCV (RBC) [Entitic vol] 89.4 fL Normal 81-99 [facility] Comment on above: Performed By: #### L 500.2500, L100.0500 ####[facility] [address] [place], [address] Platelet mean volume (Bld) [Entitic vol] 10.7 fL Normal 6.2-12.0 [facility] Comment on above: Performed By: #### L 500.2500, L100.0500 ####[facility] [address] [place], [address] Platelets (Bld) [#/Vol] 205 10*3/uL Normal 150-450 [facility] Comment on above: Performed By: #### L 500.2500, L100.0500 ####[facility] [address] [place], [address] RBC (Bld) [#/Vol] 4.45 10*6/uL Normal 4.2-5.[address] [facility] Comment on above: Performed By: #### L 500.2500, L100.0500 ####[facility] [address] [place], [address] RDW SD 42.7 fl Normal 35.1-43.9 [facility] Comment on above: Performed By: #### L 500.2500, L100.0500 ####[facility] [address] [place], [address] WBC (Bld) [#/Vol] 9.1 10*3/uL Normal 4.4-11.0 [facility] Comment on above: Performed By: #### L 500.2500, L100.0500 ####[facility] [address] [place], [address] Carbon dioxide, total [Moles /volume] in Central venous bloodOrdered By: Jamie Manrique on 09-11-2024 CO2 [Moles/Vol] 19.3 mmol/L Low 21.0-32.0 [facility] Chloride assayOrdered By: Adam Manrique on 09-11-2024 Chloride [Moles/Vol] 103 mmol/L 98-108 [facility] Erythrocyte distribution wid th (RBC) [Ratio]Ordered By: Jamie Manrique on 09-11-2024 Erythrocyte distribution width (RBC) [Entitic vol] 42.7 fL 35.1-43.9 [facility] Erythrocyte distribution wid th ratioOrdered By: Jamie Manrique on 09-11-2024 Erythrocyte distribution width (RBC) [Ratio] 13.0 % 11.6-14.6 [facility] Erythrocyte distribution wid th standard deviationOrdered By: Jamie Manrique on 09-11-2024 Erythrocyte distribution width (RBC) [Ratio] 42.7 fl 35.1-43.9 [facility] Estimation of creatinine kenzie aranceOrdered By: Jamie Manrique on 09-11-2024 Estimated Creatinine Clearance Calc 83.30 ml/min 50-250 [facility] GFR/1.73 sq M.predicted aleksandr g non-blacks MDRD (S/P/Bld) [Vol rate/Area]Ordered By: Jamie Manrique on 09-11-2024 Estimated GFR (MDRD) Non-Af Amer 80 >60 [facility] Comment on above: mL/min/1.73m2 CKD-EP I Creatinine Equation (2020) Glomerular filtration rate ( GFR) estimation/1.73 sq m using serum, plasma, or whole bOrdered By: Jamie Manrique on 09-11-2024 GFR/1.73 sq M.predicted among non-blacks MDRD (S/P/Bld) [Vol rate/Area] 80 mL/min/{1.73_m2} >60 [facility] Comment on above: mL/min/1.73m2 CKD-EP I Creatinine Equation (2020) Glucoseon 09-11-2024 Glucose [Mass/Vol] 513 mg/dL Invalid Interpretation Code 70-99 [facility] Comment on above: Result Comment: Crit ical Result(s) Called at 1303: TO NBILICINI by:KCLAPPER??Results read back by same. Performed By: #### L 501.0100 ####[facility] [address] [place], [address] [facility] deOrdered By: Damaris Thibodeaux on 09-11-2024 Bedside Glucose (Misc Panel) 455 mg/dL High 74-106 [facility] Comment on above: MANAGEMENT OF PATIEN T CARE PER NURSING PROTOCOL Glucose [Mass/Vol] 455 mg/dL High 74-106 [facility] Comment on above: MANAGEMENT OF PATIEN T CARE PER NURSING PROTOCOL Hematocrit Auto (Bld) [Volum e fraction]Ordered By: Jamie Manrique on 09-11-2024 Hematocrit (Bld) [Volume fraction] 39.8 % 37-47 [facility] Hemoglobin measurementOrdere d By: Jamie Manrique on 09-11-2024 Hemoglobin (Bld) [Mass/Vol] 13.5 g/dL 12.0-15.0 [facility] MCV (mean corpuscular volume ) determinationOrdered By: Jamie Manrique on 09-11-2024 MCV (RBC) [Entitic vol] 89.4 fL 81-99 [facility] Mean corpuscular hemoglobin (MCH) determinationOrdered By: Jamie Manrique on 09-11-2024 MCH (RBC) [Entitic mass] 30.3 pg 27.0-32.0 [facility] Mean corpuscular hemoglobin concentration (MCHC) determinationOrdered By: Jamie Manrique on 09-11-2024 MCHC (RBC) [Mass/Vol] 33.9 g/dL 32-36 [facility] Mean platelet volume determi nationOrdered By: Jamie Manrique on 09-11-2024 Platelet mean volume (Bld) [Entitic vol] 10.7 fL 6.2-12.0 [facility] Platelet countOrdered By: Adam Manrique on 09-11-2024 Platelets (Bld) [#/Vol] 205 10*3/uL 150-450 [facility] Potassium (Unsp spec) [Mass/ Vol]Ordered By: Jamie Manrique on 09-11-2024 Potassium [Moles/Vol] 4.3 mmol/L 3.3-5.1 [facility] Comment on above: Hemolysis present, R esults could be affected. Potassium measurement (mass/ volume)Ordered By: Jamie Manrique on 09-11-2024 Potassium (Unsp spec) [Mass/Vol] 4.3 mmol/L 3.3-5.1 [facility] Comment on above: Hemolysis present, R esults could be affected. RBC Auto (Bld) [#/Vol]Ordere d By: Jamie Manrique on 09-11-2024 RBC (Bld) [#/Vol] 4.45 10*6/uL 4.2-5.[address] [facility] Serum creatinine measurement (mass/volume)Ordered By: Jamie Manrique on 09-11-2024 Creatinine [Mass/Vol] 0.87 mg/dL 0.70-1.20 [facility] Serum glucose measurement (m ass/volume)Ordered By: Damaris Thibodeaux on 09-11-2024 Glucose [Mass/Vol] 513 mg/dL High 70-99 [facility] Comment on above: Critical Result(s) C alled at 1303: TO NBILICINI by: KCLAPPER Results read back by same. Serum or plasma calcium oliver urement (mass/volume)Ordered By: Jamie Manrique on 09-11-2024 Calcium [Mass/Vol] 8.9 mg/dL 7.6-11.0 [facility] Serum or plasma urea nitroge n measurement (mass/volume)Ordered By: Jamie Manrique on 09-11-2024 Urea nitrogen [Mass/Vol] 34 mg/dL High 4-19 [facility] Sodium levelOrdered By: Carlos Manrique on 09-11-2024 Sodium [Moles/Vol] 135 mmol/L 133-145 [facility] White blood cell (WBC) count Ordered By: Jamie Manrique on 09-11-2024 WBC (Bld) [#/Vol] 9.1 10*3/uL 4.4-11.0 [facility] Absolute lymphocyte countOrd ered By: Francinemelida Steele on 09-10-2024 Lymphocytes Auto (Unsp spec) [#/Vol] 0.90 10*3/uL 0.83-4.51 [facility] Absolute neutrophil countOrd ered By: Francine Steele on 09-10-2024 Neutrophils (Bld) [#/Vol] 7.6 10*3/uL 2.0-7.7 [facility] Automated lymphocyte count a s percentage of total leukocytesOrdered By: Francine Steele on 09-10-2024 Lymphocytes/100 WBC Auto (Unsp spec) 10.4 % Low 19-41 [facility] Basic Metabolic Profile (BMP )on 09-10-2024 BUN/CRE 28.5 RATIO High 10-20 [facility] Comment on above: Performed By: #### L 500.2500, L501.9985, L100.0100 ####[facility] [address] [place], [address] Calcium [Mass/Vol] 9.1 mg/dL Normal 7.6-11.0 [facility] Comment on above: Performed By: #### L 500.2500, L501.9985, L100.0100 ####[facility] [address] [place], [address] Chloride [Moles/Vol] 103 mmol/L Normal 98-108 [facility] Comment on above: Performed By: #### L 500.2500, L501.9985, L100.0100 ####[facility] [address] [place], [address] CO2 [Moles/Vol] 17.8 mmol/L Low 21.0-32.0 [facility] Comment on above: Performed By: #### L 500.2500, L501.9985, L100.0100 ####[facility] [address] [place], [address] Creatinine [Mass/Vol] 0.82 mg/dL Normal 0.70-1.20 [facility] Comment on above: Performed By: #### L 500.2500, L501.9985, L100.0100 ####[facility] [address] [place], [address] ECRCL 86.74 ml/min Normal 50-250 [facility] Comment on above: Performed By: #### L 500.2500, L501.9985, L100.0100 ####[facility] [address] [place], [address] GAP 16 High 5-15 [facility] Comment on above: Performed By: #### L 500.2500, L501.9985, L100.0100 ####[facility] [address] [place], [address] GFR/1.73 sq M.predicted among non-blacks MDRD (S/P/Bld) [Vol rate/Area] 85 mL/min/{1.73_m2} Normal >60 [facility] Comment on above: Result Comment: mL/m in/1.73m2 CKD-EPI Creatinine Equation (2020) Performed By: #### L 500.2500, L501.9985, L100.0100 ####[facility] [address] [place], [address] Glucose [Mass/Vol] 315 mg/dL High 70-99 [facility] Comment on above: Performed By: #### L 500.2500, L501.9985, L100.0100 ####[facility] [address] [place], [address] Potassium [Moles/Vol] 3.4 mmol/L Normal 3.3-5.1 [facility] Comment on above: Performed By: #### L 500.2500, L501.9985, L100.0100 ####[facility] [address] [place], [address] Sodium [Moles/Vol] 137 mmol/L Normal 133-145 [facility] Comment on above: Performed By: #### L 500.2500, L501.9985, L100.0100 ####[facility] [address] [place], [address] Urea nitrogen [Mass/Vol] 23 mg/dL High 4-19 [facility] Comment on above: Performed By: #### L 500.2500, L501.9985, L100.0100 ####[facility] [address] [place], [address] Basophil percentageOrdered B y: Francine Steele on 09-10-2024 Basophils/100 WBC (Bld) 0.1 % 0-1 [facility] Bedside Glucoseon 09-10-2024 FINGERSTICK GLU 305 mg/dL High 74-106 [facility] Comment on above: Result Comment: HILDA GEMENT OF PATIENT CARE PER NURSING PROTOCOL Performed By: #### L 501.080 ####[facility] [address] [place], [address] FINGERSTICK GLU 291 mg/dL High 74-106 [facility] Comment on above: Result Comment: HILDA GEMENT OF PATIENT CARE PER NURSING PROTOCOL Performed By: #### L 501.080 ####[facility] [address] [place], [address] FINGERSTICK GLU 292 mg/dL High 74-106 [facility] Comment on above: Result Comment: HILDA GEMENT OF PATIENT CARE PER NURSING PROTOCOL Performed By: #### L 501.080 ####[facility] [address] [place], [address] FINGERSTICK GLU 282 mg/dL High 74-106 [facility] Comment on above: Result Comment: HILDA PANIAGUA OF PATIENT CARE PER NURSING PROTOCOL Performed By: #### L 501.080 ####[facility] [address] [place], [address] CBC W/Diff, Automatedon 04-0 7-2024 Absolute Lymph 0.90 X10 3/uL Normal 0.83-4.51 [facility] Comment on above: Performed By: #### L 500.2500, L501.9985, L100.0100 ####[facility] [address] [place], [address] Absolute Neut 7.6 X10 3/uL Normal 2.0-7.7 [facility] Comment on above: Performed By: #### L 500.2500, L501.9985, L100.0100 ####[facility] [address] [place], [address] Basophils/100 WBC (Bld) 0.1 % Normal 0-1 [facility] Comment on above: Performed By: #### L 500.2500, L501.9985, L100.0100 ####[facility] [address] [place], [address] Eosinophils/100 WBC (Bld) 0.0 % Normal 0-5 [facility] Comment on above: Performed By: #### L 500.2500, L501.9985, L100.0100 ####[facility] [address] [place], [address] Erythrocyte distribution width (RBC) [Ratio] 13.0 % Normal 11.6-14.6 [facility] Comment on above: Performed By: #### L 500.2500, L501.9985, L100.0100 ####[facility] [address] [place], [address] Hematocrit (Bld) [Volume fraction] 40.6 % Normal 37-47 [facility] Comment on above: Performed By: #### L 500.2500, L501.9985, L100.0100 ####[facility] [address] [place], [address] Hemoglobin (Bld) [Mass/Vol] 13.7 g/dL Normal 12.0-15.0 [facility] Comment on above: Performed By: #### L 500.2500, L501.9985, L100.0100 ####[facility] [address] [place], [address] IG% 0.500 Normal 0.0-0.9 [facility] Comment on above: Result Comment: IG% - Immature Granulocytes (promyelocytes, myelocytes andmetamyelocytes) > 1% indicates that a LEFT SHIFT is Present. Performed By: #### L 500.2500, L501.9985, L100.0100 ####[facility] [address] [place], [address] Lymphocytes/100 WBC (Bld) 10.4 % Low 19-41 [facility] Comment on above: Performed By: #### L 500.2500, L501.9985, L100.0100 ####[facility] [address] [place], [address] MCH (RBC) [Entitic mass] 30.1 pg Normal 27.0-32.0 [facility] Comment on above: Performed By: #### L 500.2500, L501.9985, L100.0100 ####[facility] [address] [place], [address] MCHC (RBC) [Mass/Vol] 33.7 g/dL Normal 32-36 [facility] Comment on above: Performed By: #### L 500.2500, L501.9985, L100.0100 ####[facility] [address] [place], [address] MCV (RBC) [Entitic vol] 89.2 fL Normal 81-99 [facility] Comment on above: Performed By: #### L 500.2500, L501.9985, L100.0100 ####[facility] [address] [place], [address] Monocytes/100 WBC (Bld) 1.4 % Normal 0-10 [facility] Comment on above: Performed By: #### L 500.2500, L501.9985, L100.0100 ####[facility] [address] [place], [address] Neutrophils/100 WBC (Bld) 87.6 % High 47-70 [facility] Comment on above: Performed By: #### L 500.2500, L501.9985, L100.0100 ####[facility] [address] [place], [address] Nucleated RBC (Bld) [#/Vol] 0 10*3/uL Normal 0-5 [facility] Comment on above: Performed By: #### L 500.2500, L501.9985, L100.0100 ####[facility] [address] [place], [address] Platelet mean volume (Bld) [Entitic vol] 10.7 fL Normal 6.2-12.0 [facility] Comment on above: Performed By: #### L 500.2500, L501.9985, L100.0100 ####[facility] [address] [place], [address] Platelets (Bld) [#/Vol] 196 10*3/uL Normal 150-450 [facility] Comment on above: Performed By: #### L 500.2500, L501.9985, L100.0100 ####[facility] [address] [place], [address] RBC (Bld) [#/Vol] 4.55 10*6/uL Normal 4.2-5.[address] [facility] Comment on above: Performed By: #### L 500.2500, L501.9985, L100.0100 ####[facility] [address] [place], [address] RDW SD 42.5 fl Normal 35.1-43.9 [facility] Comment on above: Performed By: #### L 500.2500, L501.9985, L100.0100 ####[facility] [address] [place], [address] WBC (Bld) [#/Vol] 8.7 10*3/uL Normal 4.4-11.0 [facility] Comment on above: Performed By: #### L 500.2500, L501.9985, L100.0100 ####[facility] [address] [place], [address] Electrocardiogram reportOrde red By: Cr Ho on 09-10-2024 EKG study [facility] Cardiovascular Services [address] [place] [address] 12 Lead EKG 09/09/24 1612 MR#: [id number] Acct: [id number] Name: PITO HENDRIX Rep #:[id number] : 1970 53 From: Cr Ho MD Attending Dr: Dr. Jamie Manrique, DO Status: ADM IN Ordering Dr: Carlos Saleem MD Date: Location: [facility] Sex: F C Admitted: 09/09/24 Test Reason : SOB Blood Pressure : */* mmHG Vent. Rate : 96 BPM Atrial Rate : 96 BPM P-R Int : 148 ms QRS Dur : 144 ms QT Int : 418 ms P-R-T Axes : 55 37 24 degrees QTcB Int : 528 ms Atrial-sensed ventricular-paced rhythm Biventricular pacemaker detected Abnormal ECG Confirmed by VIC GEE, CR ([id number]), editor trade journal GUILLERMO LAROSE ([id number]) on 09/10/2024 9:14:14 AM Referred By: Carlos Saleem Confirmed By: CR HO MD 09/10/24 0914 Date _ Cr Ho MD CC: Dr. Carlos Saleem MD; Dr. Jamie Manrique DO; Dr. Margo Tatum DO ~ Signed [facility] Work Phone: Eosinophil percentageOrdered By: Francine Steele on 09-10-2024 Eosinophils/100 WBC (Bld) 0.0 % 0-5 [facility] Hemoglobin A1con 09-10-2024 HbA1c (Bld) [Mass fraction] 9.4 % Normal <=5.6 [facility] Comment on above: Performed By: #### L 500.2500, L501.9985, L100.0100 ####[facility] [address] [place], [place], [address] Hemoglobin A1c percentageOrd ered By: Francine Steele on 09-10-2024 HbA1c (Bld) [Mass fraction] 9.4 % >5.7 [facility] Immature granulocytes/100 WB C Auto (Bld)Ordered By: Francine Steele on 09-10-2024 Immature granulocytes/100 WBC (Bld) 0.500 % 0.0-0.9 [facility] Comment on above: IG% - Immature Granu locytes (promyelocytes, myelocytes and metamyelocytes) > 1% indicates that a LEFT SHIFT is Present. Influenza virus A and B and SARS-CoV-2 (COVID-19) and Respiratory syncytial virus RNAOrdered By: Jamie Manrique on 09-10-2024 SARS-CoV-2 (COVID-19) RNA ROSALIA+probe Ql (Unsp spec) [facility] Lymphocytes Auto (Unsp spec) [#/Vol]Ordered By: Francine Steele on 09-10-2024 Lymphocytes (Bld) [#/Vol] 0.90 10*3/uL 0.83-4.51 [facility] Lymphocytes/100 WBC Auto (Un sp spec)Ordered By: Francine Ivette on 09-10-2024 Lymphocytes/100 WBC (Bld) 10.4 % Low 19-41 [facility] M100.678on 09-10-2024 M100.678 Pending SARS-CoV-2 (COVID 19) Negative INFLUENZA A Negative INFLUENZA B Negative RSV PCR Negative Normal [facility] Comment on above: Performed By: #### M 100.678 ####[facility] [address] [facility] [place], [address] Monocyte percentageOrdered B y: Francine Coopernupur on 09-10-2024 Monocytes/100 WBC (Bld) 1.4 % 0-10 [facility] Neutrophil percentageOrdered By: Francine Ivette on 09-10-2024 Neutrophils/100 WBC (Bld) 87.6 % High 47-70 [facility] Nucleated red blood cell per centageOrdered By: Francinemelida Steele on 09-10-2024 Nucleated RBC/100 WBC (Bld) [Ratio] 0 % 0-5 [facility] RESPIRATORY PANEL MOLECULARo n 09-10-2024 RP PANEL Normal [facility] Comment on above: Performed By: #### M 100.638 ####[facility] [address] [facility] [place], [address] Respiratory pathogens DNA an d RNA panel ROSALIA+probe (Resp)Ordered By: Jamie Manrique on 09-10-2024 Respiratory Panel (PCR) [facility] Respiratory pathogens detect ion panel by molecular detection methodOrdered By: Jamie Manrique on 09-10-2024 Respiratory pathogens DNA and RNA panel ROSALIA+probe (Resp) [facility] 12 Lead EKGon 09-09-2024 12 Lead EKG Normal [facility] Absolute neutrophil countOrd ered By: Carlos Saleem on 09-09-2024 Neutrophils (Bld) [#/Vol] 4.3 10*3/uL 2.0-7.7 [facility] Anion gap in Serum or Plasma Ordered By: Carlos Saleem on 09-09-2024 Anion gap [Moles/Vol] 12 mmol/L 5-15 [facility] BUN/creatinine ratioOrdered By: Carlos Saleem on 09-09-2024 Urea nitrogen/Creatinine [Mass ratio] 22.7 mg/mg High - [facility] Basic Metabolic Profile (BMP )on 09-09-2024 BUN/CRE 22.7 RATIO High - [facility] Comment on above: Performed By: #### L 100.0100, L500.2500, L300.8000 ####[facility] [address] [place], [address] Calcium [Mass/Vol] 9.0 mg/dL Normal 7.6-11.0 [facility] Comment on above: Performed By: #### L 100.0100, L500.2500, L300.8000 ####[facility] [address] [place], [address] Chloride [Moles/Vol] 108 mmol/L Normal 98-108 [facility] Comment on above: Performed By: #### L 100.0100, L500.2500, L300.8000 ####[facility] [address] [place], [address] CO2 [Moles/Vol] 17.7 mmol/L Low 21.0-32.0 [facility] Comment on above: Performed By: #### L 100.0100, L500.2500, L300.8000 ####[facility] [address] [place], [address] Creatinine [Mass/Vol] 0.78 mg/dL Normal 0.70-1.20 [facility] Comment on above: Performed By: #### L 100.0100, L500.2500, L300.8000 ####[facility] [address] [place], [address] ECRCL 92.93 ml/min Normal 50-250 [facility] Comment on above: Performed By: #### L 100.0100, L500.2500, L300.8000 ####[facility] [address] [place], [address] GAP 12 Normal 5-15 [facility] Comment on above: Performed By: #### L 100.0100, L500.2500, L300.8000 ####[facility] [address] [place], [address] GFR/1.73 sq M.predicted among non-blacks MDRD (S/P/Bld) [Vol rate/Area] 91 mL/min/{1.73_m2} Normal >60 [facility] Comment on above: Result Comment: mL/m in/1.73m2 CKD-EPI Creatinine Equation (2020) Performed By: #### L 100.0100, L500.2500, L300.8000 ####[facility] [address] [place], [address] Glucose [Mass/Vol] 198 mg/dL High 70-99 [facility] Comment on above: Performed By: #### L 100.0100, L500.2500, L300.8000 ####[facility] [address] [place], [address] Potassium [Moles/Vol] 4.0 mmol/L Normal 3.3-5.1 [facility] Comment on above: Result Comment: Hemo lysis present, Results??could be affected.?? Performed By: #### L 100.0100, L500.2500, L300.8000 ####[facility] [address] [place], [address] Sodium [Moles/Vol] 138 mmol/L Normal 133-145 [facility] Comment on above: Performed By: #### L 100.0100, L500.2500, L300.8000 ####[facility] [address] [place], [address] Urea nitrogen [Mass/Vol] 18 mg/dL Normal 4-19 [facility] Comment on above: Performed By: #### L 100.0100, L500.2500, L300.8000 ####[facility] [address] [place], [address] Basophil percentageOrdered B y: Carlos Saleem on 09-09-2024 Basophils/100 WBC (Bld) 0.3 % 0-1 [facility] CBC W/Diff, Automatedon Absolute Lymph 1.55 X10 3/uL Normal 0.83-4.51 [facility] Comment on above: Performed By: #### L 100.0100, L500.2500, L300.8000 ####[facility] [address] [place], [address] Absolute Neut 4.3 X10 3/uL Normal 2.0-7.7 [facility] Comment on above: Performed By: #### L 100.0100, L500.2500, L300.8000 ####[facility] [address] [place], [address] Basophils/100 WBC (Bld) 0.3 % Normal 0-1 [facility] Comment on above: Performed By: #### L 100.0100, L500.2500, L300.8000 ####[facility] [address] [place], [address] Eosinophils/100 WBC (Bld) 1.0 % Normal 0-5 [facility] Comment on above: Performed By: #### L 100.0100, L500.2500, L300.8000 ####[facility] [address] [place], [address] Erythrocyte distribution width (RBC) [Ratio] 13.0 % Normal 11.6-14.6 [facility] Comment on above: Performed By: #### L 100.0100, L500.2500, L300.8000 ####[facility] [address] [place], [address] Hematocrit (Bld) [Volume fraction] 39.9 % Normal 37-47 [facility] Comment on above: Performed By: #### L 100.0100, L500.2500, L300.8000 ####[facility] [address] [place], [address] Hemoglobin (Bld) [Mass/Vol] 13.5 g/dL Normal 12.0-15.0 [facility] Comment on above: Performed By: #### L 100.0100, L500.2500, L300.8000 ####[facility] [address] [place], [address] IG% 0.200 Normal 0.0-0.9 [facility] Comment on above: Result Comment: IG% - Immature Granulocytes (promyelocytes, myelocytes andmetamyelocytes) > 1% indicates that a LEFT SHIFT is Present. Performed By: #### L 100.0100, L500.2500, L300.8000 ####[facility] [address] [place], [address] Lymphocytes/100 WBC (Bld) 25.2 % Normal 19-41 [facility] Comment on above: Performed By: #### L 100.0100, L500.2500, L300.8000 ####[facility] [address] [place], [address] MCH (RBC) [Entitic mass] 30.4 pg Normal 27.0-32.0 [facility] Comment on above: Performed By: #### L 100.0100, L500.2500, L300.8000 ####[facility] [address] [place], [address] MCHC (RBC) [Mass/Vol] 33.8 g/dL Normal 32-36 [facility] Comment on above: Performed By: #### L 100.0100, L500.2500, L300.8000 ####[facility] [address] [place], [address] MCV (RBC) [Entitic vol] 89.9 fL Normal 81-99 [facility] Comment on above: Performed By: #### L 100.0100, L500.2500, L300.8000 ####[facility] [address] [place], [address] Monocytes/100 WBC (Bld) 3.9 % Normal 0-10 [facility] Comment on above: Performed By: #### L 100.0100, L500.2500, L300.8000 ####[facility] [address] [place], [address] Neutrophils/100 WBC (Bld) 69.4 % Normal 47-70 [facility] Comment on above: Performed By: #### L 100.0100, L500.2500, L300.8000 ####[facility] [address] [place], [address] Nucleated RBC (Bld) [#/Vol] 0 10*3/uL Normal 0-5 [facility] Comment on above: Performed By: #### L 100.0100, L500.2500, L300.8000 ####[facility] [address] [place], [address] Platelet mean volume (Bld) [Entitic vol] 10.2 fL Normal 6.2-12.0 [facility] Comment on above: Performed By: #### L 100.0100, L500.2500, L300.8000 ####[facility] [address] [place], [address] Platelets (Bld) [#/Vol] 180 10*3/uL Normal 150-450 [facility] Comment on above: Performed By: #### L 100.0100, L500.2500, L300.8000 ####[facility] [address] [place], [address] RBC (Bld) [#/Vol] 4.44 10*6/uL Normal 4.2-5.[address] [facility] Comment on above: Performed By: #### L 100.0100, L500.2500, L300.8000 ####[facility] [address] [place], [address] RDW SD 42.7 fl Normal 35.1-43.9 [facility] Comment on above: Performed By: #### L 100.0100, L500.2500, L300.8000 ####[facility] [address] [place], [address] WBC (Bld) [#/Vol] 6.2 10*3/uL Normal 4.4-11.0 [facility] Comment on above: Performed By: #### L 100.0100, L500.2500, L300.8000 ####[facility] [address] [place], [address] CTA Chest W/WO Contraston CTA Chest W/WO Contrast Normal [facility] Carbon dioxide, total [Moles /volume] in Central venous bloodOrdered By: Carlos Saleem on 09-09-2024 CO2 [Moles/Vol] 17.7 mmol/L Low 21.0-32.0 [facility] Chest 1 View (Portable)on Chest 1 View (Portable) Normal [facility] Chloride assayOrdered By: Adam Saleem on 09-09-2024 Chloride [Moles/Vol] 108 mmol/L 98-108 [facility] D-Dimer Quantitative (DVT/PE )on 09-09-2024 D-DIMER QUANT 1.06 FEU/ug/m Invalid Interpretation Code 0.27-0.49 [facility] Comment on above: Result Comment: D-Di kevin ELEVATED (>0.49): Additional studies and clinicalassessments are indicated to conclude diagnosis of:Deep Vein Thrombosis (DVT) or Pulmonary Embolism (PE)CRITICAL VALUE CALLED TO Sherrie RODRIGES09/09/24 Burton Browning.RESULTS READ BACK BY SAME. Performed By: #### L 100.0100, L500.2500, L300.8000 ####[facility] [address] [place], [address] D-dimer measurement for deep venous thrombosisOrdered By: Carlos Saleem on 09-09-2024 D-Dimer Quantitative (PE/DVT) 1.06 FEU/ug/m High 0.27-0.49 [facility] Comment on above: D-Dimer ELEVATED (>0 .49): Additional studies and clinicalassessments are indicated to conclude diagnosis of:Deep Vein Thrombosis (DVT) or Pulmonary Embolism (PE)CRITICAL VALUE CALLED TO Sherrie RODRIGES09/09/24 1637 Taryn Browning.RESULTS READ BACK BY SAME. Emergency Department Summary on 09-09-2024 Emergency Department Summary Normal [facility] Eosinophil percentageOrdered By: Carlos Saleem on 09-09-2024 Eosinophils/100 WBC (Bld) 1.0 % 0-5 [facility] Erythrocyte distribution wid th (RBC) [Ratio]Ordered By: Carlos Saleem on 09-09-2024 Erythrocyte distribution width (RBC) [Entitic vol] 42.7 fL 35.1-43.9 [facility] Erythrocyte distribution wid th ratioOrdered By: Carlos Saleem on 09-09-2024 Erythrocyte distribution width (RBC) [Ratio] 13.0 % 11.6-14.6 [facility] Estimation of creatinine kenzie aranceOrdered By: Carlos Saleem on 09-09-2024 Estimated Creatinine Clearance Calc 92.93 ml/min 50-250 [facility] GFR/1.73 sq M.predicted aleksandr g non-blacks MDRD (S/P/Bld) [Vol rate/Area]Ordered By: Carlos Saleem on 09-09-2024 Estimated GFR (MDRD) Non-Af Amer 91 >60 [facility] Comment on above: mL/min/1.73m2 CKD-EP I Creatinine Equation (2020) H AND P Exam - [facility] 09-09-2024 H&P Exam - Hospitalist Normal [facility] Hematocrit Auto (Bld) [Volum e fraction]Ordered By: Carlos Saleem on 09-09-2024 Hematocrit (Bld) [Volume fraction] 39.9 % 37-47 [facility] Hemoglobin measurementOrdere d By: Carlos Saleem on 09-09-2024 Hemoglobin (Bld) [Mass/Vol] 13.5 g/dL 12.0-15.0 [facility] Immature granulocytes/100 WB C Auto (Bld)Ordered By: Carlos Saleem on 09-09-2024 Immature granulocytes/100 WBC (Bld) 0.200 % 0.0-0.9 [facility] Comment on above: IG% - Immature Granu locytes (promyelocytes, myelocytes and metamyelocytes) > 1% indicates that a LEFT SHIFT is Present. L503.7505on 09-09-2024 Natriuretic peptide B (Bld) [Mass/Vol] 2124 pg/mL High <=900 [facility] Comment on above: Result Comment: Hear t Failure Unlikely: < 300 pg/mLHeart Failure Likely< 50 Years: > 450 pg/mL50-75 Years: > 900 pg/mL>75 Years: > 1800 pg/mL Performed By: #### L 503.7505 ####[facility] [address] [place], [address] Lymphocytes Auto (Unsp spec) [#/Vol]Ordered By: Carlos Saleem on 09-09-2024 Lymphocytes (Bld) [#/Vol] 1.55 10*3/uL 0.83-4.51 [facility] Lymphocytes/100 WBC Auto (Un sp spec)Ordered By: Carlos Saleem on 09-09-2024 Lymphocytes/100 WBC (Bld) 25.2 % 19-41 [facility] MCV (mean corpuscular volume ) determinationOrdered By: Carlos Saleem on 09-09-2024 MCV (RBC) [Entitic vol] 89.9 fL 81-99 [facility] Mean corpuscular hemoglobin (MCH) determinationOrdered By: Carlos Saleem on 09-09-2024 MCH (RBC) [Entitic mass] 30.4 pg 27.0-32.0 [facility] Mean corpuscular hemoglobin concentration (MCHC) determinationOrdered By: Carlos Saleem on 09-09-2024 MCHC (RBC) [Mass/Vol] 33.8 g/dL 32-36 [facility] Mean platelet volume determi nationOrdered By: Carlos Saleem on 09-09-2024 Platelet mean volume (Bld) [Entitic vol] 10.2 fL 6.2-12.0 [facility] Monocyte percentageOrdered B y: Carlos Saleem on 09-09-2024 Monocytes/100 WBC (Bld) 3.9 % 0-10 [facility] Natriuretic peptide.B prohor tiffanie N-Terminal [Mass/Vol]Ordered By: Carlos Saleem on 09-09-2024 Natriuretic peptide B (Bld) [Mass/Vol] 2124 pg/mL High <900 [facility] Comment on above: Heart Failure Unlike ly: < 300 pg/mLHeart Failure Likely< 50 Years: > 450 pg/mL50-75 Years: > 900 pg/mL>75 Years: > 1800 pg/mL Natriuretic peptide.B prohor tiffanie N-Terminal [Mass/volume] in Serum or PlasmaOrdered By: Carlos Saleem on 09-09-2024 Natriuretic peptide.B prohormone N-Terminal [Mass/Vol] 2124 pg/mL High <900 [facility] Comment on above: Heart Failure Unlike ly: < 300 pg/mLHeart Failure Likely< 50 Years: > 450 pg/mL50-75 Years: > 900 pg/mL>75 Years: > 1800 pg/mL Neutrophil percentageOrdered By: Carlos Saleem on 09-09-2024 Neutrophils/100 WBC (Bld) 69.4 % 47-70 [facility] Nucleated red blood cell per centageOrdered By: Carlos Saleem on 09-09-2024 Nucleated RBC/100 WBC (Bld) [Ratio] 0 % 0-5 [facility] Platelet countOrdered By: Adam Saleem on 09-09-2024 Platelets (Bld) [#/Vol] 180 10*3/uL 150-450 [facility] Potassium (Unsp spec) [Mass/ Vol]Ordered By: Carlos Saleem on 09-09-2024 Potassium [Moles/Vol] 4.0 mmol/L 3.3-5.1 [facility] Comment on above: Hemolysis present, R esults could be affected. RBC Auto (Bld) [#/Vol]Ordere d By: Carlos Saleem on 09-09-2024 RBC (Bld) [#/Vol] 4.44 10*6/uL 4.2-5.[address] [facility] Serum creatinine measurement (mass/volume)Ordered By: Carlos Saleem on 09-09-2024 Creatinine [Mass/Vol] 0.78 mg/dL 0.70-1.20 [facility] Serum glucose measurement (m ass/volume)Ordered By: Carlos Saleem on 09-09-2024 Glucose [Mass/Vol] 198 mg/dL High 70-99 [facility] Serum or plasma calcium oliver urement (mass/volume)Ordered By: Carlos Saleem on 09-09-2024 Calcium [Mass/Vol] 9.0 mg/dL 7.6-11.0 [facility] Serum or plasma urea nitroge n measurement (mass/volume)Ordered By: Carlos Saleem on 09-09-2024 Urea nitrogen [Mass/Vol] 18 mg/dL 4-19 [facility] Sodium levelOrdered By: Carlos Saleem on 09-09-2024 Sodium [Moles/Vol] 138 mmol/L 133-145 [facility] White blood cell (WBC) count Ordered By: Carlos Saleem on 09-09-2024 WBC (Bld) [#/Vol] 6.2 10*3/uL 4.4-11.0 [facility] Direct serum free thyroxine (FT4) measurementOrdered By: Mike Tom on 07-05-2024 Free T4 [Mass/Vol] 1.03 ng/dL 0.76-1.46 [facility] Free T3on 07-05-2024 Free T3 [Mass/Vol] 3.6 pg/mL Normal 2.18-3.98 [facility] Comment on above: Performed By: #### L 501.85507, L501.9520, L506.0400 ####[facility] [address] [place], [address] Free L5Jgbnifb By: Vega on 07-05-2024 Free T3 [Mass/Vol] 3.6 pg/mL 2.18-3.98 [facility] Free Triiodothyronine (T3) pg/dL 3.6 pg/mL 2.18-3.98 [facility] Serum or plasma thyroid stim ulating hormone (TSH) measurement (units/volume)Ordered By: Mike Tom on 07-05-2024 TSH Qn 0.511 uIU/mL 0.358-3.740 [facility] T4 Free Directon 07-05-2024 T4 FREE DIRECT 1.03 ng/dL Normal 0.76-1.46 [facility] Comment on above: Performed By: #### L 501.56121, L501.9520, L506.0400 ####[facility] [facility] [id number] [place], [place], [id number] TSH QnOrdered By: Mike salmeron on 07-05-2024 Thyroid Stimulating Hormone (TSH) 0.511 uIU/mL 0.358-3.740 [facility] Thyroid Stim Hormone (TSH)on 07-05-2024 TSH 0.511 uIU/mL Normal 0.358-3.740 [facility] Comment on above: Performed By: #### L 501.44691, L501.9520, L506.0400 ####[facility] [id number] [place], [place], [id number] Endocrinology Visit Reporton 06-13-2024 Endocrinology Visit Report Normal [facility] Laboratory - Hematology and Cell countson 06-13-2024 HbA1c (Bld) [Mass fraction] 8.7 % High 4.2-6.3 [facility] 12 Lead EKGon 05-30-2024 12 Lead EKG Normal [facility] Chest PA and Lateralon 05-30 Chest PA and Lateral Normal [facility] Emergency Department Summary on 05-30-2024 Emergency Department Summary Normal [facility] Influenza virus A and B and SARS-CoV-2 (COVID-19) and Respiratory syncytial virus RNAOrdered By: Miguel Solorio on 05-30-2024 SARS-CoV-2 (COVID-19) RNA ROSALIA+probe Ql (Unsp spec) [facility] M100.678on 05-30-2024 M100.678 Pending SARS-CoV-2 (COVID 19) Negative INFLUENZA A Negative INFLUENZA B Negative RSV PCR Negative Normal [facility] Comment on above: Performed By: #### M 100.678 ####[facility] [address] [place], [place], [address] Endocrinology Visit Reporton 04-04-2024 Endocrinology Visit Report Normal [facility] Miscellaneous Lab Procedureo n 04-02-2024 MISC LAB TEST Normal [facility] Comment on above: Order Comment: RUN L OWEST [id number] URINE TOX Result Comment: [id number]+OXYCODONE-BUND [...] includes Oxycodone and Oxymorphone. TESTING PERFORMED AT [facility]. ORIGINAL REPORT ON FILE IN LAB CONTAINS ADDITIONAL TEST SITE INFORMATION. Performed By: #### L 505.5000, L801.1541 ####[facility] [address] [place], [address] Lumbar Spine 2 or 3 Viewson 03-27-2024 Lumbar Spine 2 or 3 Views Normal [facility] Urine Drug Screen (VISTA)on 03-27-2024 AMPHETAMINES Negative Normal <1000 ng/mL [facility] Comment on above: Order Comment: MEDTO X Performed By: #### L 505.5000, L801.1541 ####[facility] [address] [facility] [address] BARBITIURATES Negative Normal < 200 ng/mL [facility] Comment on above: Order Comment: MEDTO X Performed By: #### L 505.5000, L801.1541 ####[facility] [address] [place] [address] BENZODIAZIPINE Negative Normal < 200 ng/mL [facility] Comment on above: Order Comment: MEDTO X Performed By: #### L 505.5000, L801.1541 ####[facility] [address] [place] [address] COCAINE Negative Normal < 300 ng/mL [facility] Comment on above: Order Comment: MEDTO X Performed By: #### L 505.5000, L801.1541 ####[facility] [address] [place] [address] ECSTACY Negative Normal < 500 ng/mL [facility] Comment on above: Order Comment: MEDTO X Performed By: #### L 505.5000, L801.1541 ####[facility] [address] [place] [address] METHADONE Negative Normal < 300 ng/mL [facility] Comment on above: Order Comment: MEDTO X Performed By: #### L 505.5000, L801.1541 ####[facility] [address] [place] [id number] OPIATES Positive Abnormal < 300 ng/mL [facility] Comment on above: Order Comment: MEDTO X Performed By: #### L 505.5000, L801.1541 ####[facility] [address] [place], [address] PCP Negative Normal < 25 ng/mL [facility] Comment on above: Order Comment: MEDTO X Performed By: #### L 505.5000, L801.1541 ####[facility] [address] [place], [address] THC Negative Normal < 50 ng/mL [facility] Comment on above: Order Comment: MEDTO X Performed By: #### L 505.5000, L801.1541 ####[facility] [address] [place], [address] VISTA UDS PH 5 Normal [facility] Comment on above: Order Comment: MEDTO X Performed By: #### L 505.5000, L801.1541 ####[facility] [address] [place], [address] Basophil percentageOrdered B y: Jamie Manrique on 09-10-2023 Basophil percentage 8.3 g/dL 12.0-15.[address] [facility] Basophils (Bld) [#/Vol] 4.5 10*3/uL 4.4-11.0 [facility] Determination of erythrocyte mean corpuscular volume (MCV)Ordered By: Jamie Manrique on 09-10-2023 MCV (RBC) [Entitic vol] 100.4 fL 81-99 [facility] Erythrocyte distribution wid th ratioOrdered By: Jamie Manrique on 09-10-2023 Erythrocyte distribution width (RBC) [Ratio] 14.7 % 11.6-14.6 [facility] Erythrocyte distribution wid th standard deviationOrdered By: Jamie Manrique on 09-10-2023 Erythrocyte distribution width (RBC) [Entitic vol] 52.9 fL 35.1-43.9 [facility] Hematocrit Auto (Bld) [Volum e fraction]Ordered By: Jamie Manrique on 09-10-2023 Hematocrit (Bld) [Volume fraction] 25.7 % 37-47 [facility] No Panel InformationOrdered By: Jamie Manrique on 09-10-2023 32.4 pg 27.0-32.0 [facility] 32.3 g/dL 32-36 [facility] 199 K/mm3 150-450 [facility] 10.0 fl 6.2-12.0 [facility] RBC Auto (Bld) [#/Vol]Ordere d By: Jamie Manrique on 09-10-2023 RBC (Bld) [#/Vol] 2.56 10*6/uL 4.2-5.[address] [facility] Thin prep Papanicolaou smear with manual screeningOrdered By: Jamie Manrique on 09-10-2023 Thin prep Papanicolaou smear with manual screening 190 mg/dL 74-106 [facility] Basophil percentageOrdered B y: Berenice Short on 09-09-2023 Basophil percentage 158 mg/dL 74-[address] [facility] Basophil percentage 138 mmol/L 136-[address] [facility] Basophil percentage 3.7 mmol/L 3.5-5.[address] [facility] Basophil percentage 110 mmol/L 98-[address] [facility] No Panel InformationOrdered By: Berenice Short on 09-09-2023 96 mL/min >60 [facility] 116 mL/min >60 [facility] 106.91 ml/min [facility] 30.8 RATIO 10-20 [facility] 23.0 mmol/L 21.0-32.0 [facility] Serum or plasma calcium oliver urement (mass/volume)Ordered By: Berenice Short on 09-09-2023 Calcium [Mass/Vol] 8.6 mg/dL 8.5-10.1 [facility] Serum or plasma creatinine m easurement (mass/volume)Ordered By: Berenice Short on 09-09-2023 Creatinine [Mass/Vol] 0.68 mg/dL 0.55-1.02 [facility] Serum or plasma urea nitroge n measurement (mass/volume)Ordered By: Berenice Short on 09-09-2023 Urea nitrogen [Mass/Vol] 21 mg/dL 7-18 [facility] Thin prep Papanicolaou smear with manual screeningOrdered By: Berenice Short on 09-09-2023 Thin prep Papanicolaou smear with manual screening 5 5-15 [facility] Iron measurement (mass/mass) Ordered By: Jamie Manrique on 09-08-2023 Iron (Unsp spec) [Mass/Mass] 40 ug/dL 50-170 [facility] No Panel InformationOrdered By: Jamie Manrique on 09-08-2023 286 ug/dL 250-450 [facility] 71 ng/mL 8-252 [facility] Serum or plasma iron saturat ion measurement (mass fraction)Ordered By: Jamie Manrique on 09-08-2023 Iron saturation [Mass fraction] 14.0 % 15.0-55.0 [facility] Absolute lymphocyte countOrd ered By: Navdeep Bourgeois on 09-07-2023 Lymphocytes Auto (Unsp spec) [#/Vol] 2.01 10*3/uL 0.83-4.51 [facility] Automated lymphocyte count a s percentage of total leukocytesOrdered By: Navdeep Bourgeois on 09-07-2023 Lymphocytes/100 WBC Auto (Unsp spec) 34.1 % 19-41 [facility] Basophil percentageOrdered B y: Navdeep Bourgeois on 09-07-2023 Basophils (Bld) [#/Vol] 3.3 10*3/uL 2.0-7.7 [facility] Basophils/100 WBC (Bld) 56.1 % 47-70 [facility] Basophils/100 WBC (Bld) 8.1 % 0-10 [facility] Basophils/100 WBC (Bld) 1.0 % 0-5 [facility] Basophils/100 WBC (Bld) 0.2 % 0-1 [facility] Immature granulocytes/100 WB C Auto (Bld)Ordered By: Navdeep Bourgeois on 09-07-2023 Immature granulocytes/100 WBC (Bld) 0.500 % 0.0-0.9 [facility] No Panel InformationOrdered By: Navdeep Bourgeois on 09-07-2023 0 % 0-5 [facility] Absolute lymphocyte countOrd ered By: Terry Arzate on 09-06-2023 Lymphocytes Auto (Unsp spec) [#/Vol] 1.73 10*3/uL 0.83-4.51 [facility] Automated lymphocyte count a s percentage of total leukocytesOrdered By: Terry Arzate on 09-06-2023 Lymphocytes/100 WBC Auto (Unsp spec) 24.9 % 19-41 [facility] Bacteria identified Cx Nom ( U)Ordered By: Navdeep Bourgeois on 09-06-2023 Culture, urine Enterococcus faecalis [facility] Basophil percentageOrdered B y: Terry Arzate on 09-06-2023 Basophil percentage 0 SEEN /hpf 0-5 [facility] Basophils/100 WBC (Bld) 0.1 % 0-1 [facility] Chloride [Moles/Vol] 110 mmol/L 98-107 [facility] Eosinophils/100 WBC (Bld) 0.6 % 0-5 [facility] Glucose [Mass/Vol] 169 mg/dL 74-106 [facility] Comment on above: Fasting Glucose resu lt greater than or equal to 126 mg/dL suggests DIABETES MELLITUS per A.D.A. criteria. Hemoglobin (Bld) [Mass/Vol] 10.2 g/dL 12.0-15.0 [facility] Monocytes/100 WBC (Bld) 7.2 % 0-10 [facility] Neutrophils (Bld) [#/Vol] 4.7 10*3/uL 2.0-7.7 [facility] Neutrophils/100 WBC (Bld) 66.9 % 47-70 [facility] Potassium [Moles/Vol] 3.9 mmol/L 3.5-5.1 [facility] Sodium [Moles/Vol] 137 mmol/L 136-145 [facility] WBC (Bld) [#/Vol] 7.0 10*3/uL 4.4-11.0 [facility] Bilirubin Test strip Ql (U)O rdered By: Terryrosario Arzate on 09-06-2023 Bilirubin Ql (U) Negative Negative [facility] Determination of erythrocyte mean corpuscular volume (MCV)Ordered By: Terry Arzate on 09-06-2023 MCV (RBC) [Entitic vol] 98.1 fL 81-99 [facility] Erythrocyte distribution wid th ratioOrdered By: Terry Arzate on 09-06-2023 Erythrocyte distribution width (RBC) [Ratio] 14.8 % 11.6-14.6 [facility] Erythrocyte distribution wid th standard deviationOrdered By: Terry Arzate on 09-06-2023 Erythrocyte distribution width (RBC) [Entitic vol] 51.8 fL 35.1-43.9 [facility] Hematocrit Auto (Bld) [Volum e fraction]Ordered By: Terry Arzate on 09-06-2023 Hematocrit (Bld) [Volume fraction] 31.1 % 37-47 [facility] Immature granulocytes/100 WB C Auto (Bld)Ordered By: Terry Arzate on 09-06-2023 Immature granulocytes/100 WBC (Bld) 0.300 % 0.0-0.9 [facility] Comment on above: IG% - Immature Granu locytes (promyelocytes, myelocytes and metamyelocytes) > 1% indicates that a LEFT SHIFT is Present. Ketones Test strip Ql (U)Ord ered By: Terry Arzate on 09-06-2023 Ketones Ql (U) Negative Negative [facility] Laboratory - Chemistry and C hemistry - challengeOrdered By: Terry Arzate on 09-06-2023 CO2 [Moles/Vol] 20.0 mmol/L 21.0-32.0 [facility] Urea nitrogen/Creatinine [Mass ratio] 35.5 mg/mg 10-20 [facility] Laboratory - Hematology and Cell countsOrdered By: Terry Arzate on 09-06-2023 MCH (RBC) [Entitic mass] 32.2 pg 27.0-32.0 [facility] MCHC (RBC) [Mass/Vol] 32.8 g/dL 32-36 [facility] Nucleated RBC/100 WBC (Bld) [Ratio] 0 % 0-5 [facility] Platelet mean volume (Bld) [Entitic vol] 9.8 fL 6.2-12.0 [facility] Platelets (Bld) [#/Vol] 220 10*3/uL 150-450 [facility] Mucus LM Ql (Urine sed)Order ed By: Terry Arzate on 09-06-2023 Mucus Ql (Urine sed) 0 SEEN /hpf [facility] Nitrite Test strip Ql (U)Ord ered By: Terry Arzate on 09-06-2023 Nitrite Ql (U) Negative Negative [facility] No Panel InformationOrdered By: Terry Arzate on 09-06-2023 Urine RBC 50-100 SEEN /hpf 0-5 [facility] 50-100 SEEN /hpf 0-5 [facility] Estimated Creatinine Clearance Calc 86.50 ml/min [facility] Estimated GFR (MDRD) Amer 90 mL/min >60 [facility] Comment on above: GFR Calc Estimated GFR (MDRD) Non-Af Amer 75 mL/min >60 [facility] Comment on above: Non- GFR Calc No Panel InformationOrdered By: Navdeep Bourgeois on 09-06-2023 15.1 SECONDS 11.7-14.9 [facility] 1.2 [facility] Protein Test strip Ql (U)Ord ered By: Terry Arzate on 09-06-2023 Protein Ql (U) 500 mg/dl Negative [facility] RBC Auto (Bld) [#/Vol]Ordere d By: Terry Arzate on 09-06-2023 RBC (Bld) [#/Vol] 3.17 10*6/uL 4.2-5.[address] [facility] Serum or plasma calcium oliver urement (mass/volume)Ordered By: Terry Arzate on 09-06-2023 Calcium [Mass/Vol] 8.5 mg/dL 8.5-10.1 [facility] Serum or plasma creatinine m easurement (mass/volume)Ordered By: Terry Arzate on 09-06-2023 Creatinine [Mass/Vol] 0.84 mg/dL 0.55-1.02 [facility] Comment on above: The validity of the calculated GFR & GFRAA in patients over 70 years has not been determined. Clinical correlation is essential. Serum or plasma urea nitroge n measurement (mass/volume)Ordered By: Terry Arzate on 09-06-2023 Urea nitrogen [Mass/Vol] 30 mg/dL 7-18 [facility] Squamous epithelial cells de tection in urine sediment by light microscopyOrdered By: Terry Arzate on 09-06-2023 Epithelial cells.squamous LM Ql (Urine sed) 0 SEEN /hpf 5-10 [facility] Thin prep Papanicolaou smear with manual screeningOrdered By: Terry Arzate on 09-06-2023 Thin prep Papanicolaou smear with manual screening 7 5-15 [facility] Urine blood detectionOrdered By: Terry Arzate on 09-06-2023 RBC Ql (U) 250 /ul Negative [facility] Urine clarityOrdered By: Terry Arzate on 09-06-2023 Clarity (U) Turbid Clear [facility] Urine color determinationOrd ered By: Terry Arzate on 09-06-2023 Color (U) Red Yellow [facility] Urine glucose detectionOrder ed By: Terry Arzate on 09-06-2023 Glucose Ql (U) 250 mg/dl Normal [facility] Urine leukocyte esterase det ection by dipstickOrdered By: Terry Arzate on 09-06-2023 Leukocyte esterase Test strip Ql (U) Negative Negative [facility] Urine pHOrdered By: Terry ponce on 09-06-2023 pH (U) 7.0 [pH] 5.0 - 8.0 [facility] Urine sediment bacteria coun t by microscopy (number/high power field)Ordered By: Terry Arzate on 09-06-2023 Bacteria LM.HPF (Urine sed) [#/Area] 0 /[HPF] None Seen [facility] Urine specific gravity measu rementOrdered By: Terryrosario Arzate on 09-06-2023 Specific gravity (U) [Rel density] 1.010 1.002-1.030 [facility] Urine urobilinogen measureme ntOrdered By: Terry Arzate on 09-06-2023 Urobilinogen Ql (U) Normal mg/dl Normal [facility] Basophil percentageOrdered B y: Damaris Thibodeaux on 08-29-2023 Basophil percentage 9.7 g/dL 12.0-15.[address] [facility] Hemoglobin (Bld) [Mass/Vol] 9.7 g/dL 12.0-15.0 [facility] Basophil percentage 2.8 mg/dL 2.5-4.[address] [facility] Basophil percentage 245 mg/dL 74-[address] [facility] Basophil percentage 140 mmol/L 136-[address] [facility] Basophil percentage 3.4 mmol/L 3.5-5.[address] [facility] Basophil percentage 110 mmol/L 98-[address] [facility] Chloride [Moles/Vol] 110 mmol/L 98-107 [facility] Glucose [Mass/Vol] 245 mg/dL 74-106 [facility] Comment on above: Glucose result great er than or equal to 200 mg/dLsuggests DIABETES MELLITUS per A.D.A. criteria. Potassium [Moles/Vol] 3.4 mmol/L 3.5-5.1 [facility] Sodium [Moles/Vol] 140 mmol/L 136-145 [facility] Hematocrit Auto (Bld) [Volum e fraction]Ordered By: Aidan Staples on 08-29-2023 Hematocrit (Bld) [Volume fraction] 29.5 % 37-47 [facility] Laboratory - Chemistry and C hemistry - challengeOrdered By: Damaris Thibodeaux on 08-29-2023 CO2 [Moles/Vol] 24.0 mmol/L 21.0-32.0 [facility] Magnesium [Mass/Vol] 2.1 mg/dL 1.6-2.6 [facility] Urea nitrogen/Creatinine [Mass ratio] 8.6 mg/mg 10- [facility] No Panel InformationOrdered By: Damaris Thibodeaux on 08-29-2023 Estimated Creatinine Clearance Calc 89.80 ml/min [facility] Estimated GFR (MDRD) Amer 95 mL/min >60 [facility] Comment on above: GFR Calc Estimated GFR (MDRD) Non-Af Amer 78 mL/min >60 [facility] Comment on above: Non- GFR Calc 78 mL/min >60 [facility] 95 mL/min >60 [facility] 89.80 ml/min [facility] 8.6 RATIO 03-25 [facility] 2.1 mg/dL 1.6-2.6 [facility] 24.0 mmol/L 21.0-32.0 [facility] Serum or plasma calcium oliver urement (mass/volume)Ordered By: Damaris Thibodeaux on 08-29-2023 Calcium [Mass/Vol] 8.4 mg/dL 8.5-10.1 [facility] Serum or plasma creatinine m easurement (mass/volume)Ordered By: Damaris Thibodeaux on 08-29-2023 Creatinine [Mass/Vol] 0.81 mg/dL 0.55-1.02 [facility] Comment on above: The validity of the calculated GFR & GFRAA in patients over 70 years has not been determined. Clinical correlation is essential. Serum or plasma urea nitroge n measurement (mass/volume)Ordered By: Damaris Thibodeaux on 08-29-2023 Urea nitrogen [Mass/Vol] 7 mg/dL 7-18 [facility] Thin prep Papanicolaou smear with manual screeningOrdered By: Damaris Thibodeaux on 08-29-2023 Thin prep Papanicolaou smear with manual screening 225 mg/dL 74-106 [facility] Comment on above: MANAGEMENT OF PATIEN T CARE PER NURSING PROTOCOL Thin prep Papanicolaou smear with manual screening 6 5-15 [facility] Absolute lymphocyte countOrd ered By: Perlita Dalia on 08-27-2023 Lymphocytes Auto (Unsp spec) [#/Vol] 1.71 10*3/uL 0.83-4.51 [facility] Automated lymphocyte count a s percentage of total leukocytesOrdered By: Perlita Gómez on 08-27-2023 Lymphocytes/100 WBC Auto (Unsp spec) 38.4 % 19-41 [facility] Basophil percentageOrdered B y: Perlita Gómez on 08-27-2023 Basophil percentage 6.1 g/dL 6.4-8.[address] [facility] Basophil percentage 0.50 mg/dL 0.20-1.[address] [facility] Basophils (Bld) [#/Vol] 4.5 10*3/uL 4.4-11.0 [facility] Basophils (Bld) [#/Vol] 2.1 10*3/uL 2.0-7.7 [facility] Basophils/100 WBC (Bld) 0.2 % 0-1 [facility] Basophils/100 WBC (Bld) 48.2 % 47-70 [facility] Basophils/100 WBC (Bld) 11.2 % 0-10 [facility] Basophils/100 WBC (Bld) 1.8 % 0-5 [facility] Bilirubin [Mass/Vol] 0.50 mg/dL 0.20-1.00 [facility] Comment on above: For patients on eltr ombopag therapy, use of Dimension [place] TBIL is not recommended. Eosinophils/100 WBC (Bld) 1.8 % 0-5 [facility] Monocytes/100 WBC (Bld) 11.2 % 0-10 [facility] Neutrophils (Bld) [#/Vol] 2.1 10*3/uL 2.0-7.7 [facility] Neutrophils/100 WBC (Bld) 48.2 % 47-70 [facility] Protein [Mass/Vol] 6.1 g/dL 6.4-8.2 [facility] WBC (Bld) [#/Vol] 4.5 10*3/uL 4.4-11.0 [facility] Determination of erythrocyte mean corpuscular volume (MCV)Ordered By: [facility] Dalia on 08-27-2023 MCV (RBC) [Entitic vol] 95.7 fL 81-99 [facility] Erythrocyte distribution wid th ratioOrdered By: [facility] Dalia on 08-27-2023 Erythrocyte distribution width (RBC) [Ratio] 14.0 % 11.6-14.6 [facility] Erythrocyte distribution wid th standard deviationOrdered By: [facility] Dalia on 08-27-2023 Erythrocyte distribution width (RBC) [Entitic vol] 49.1 fL 35.1-43.9 [facility] Immature granulocytes/100 WB C Auto (Bld)Ordered By: [facility] Dalia on 08-27-2023 Immature granulocytes/100 WBC (Bld) 0.200 % 0.0-0.9 [facility] Comment on above: IG% - Immature Granu locytes (promyelocytes, myelocytes and metamyelocytes) > 1% indicates that a LEFT SHIFT is Present. Laboratory - Chemistry and C hemistry - challengeOrdered By: [facility] Dalia on 08-27-2023 Albumin/Globulin [Mass ratio] 0.9 {ratio} 0.9-2.4 [facility] ALP [Catalytic activity/Vol] 71 U/L 45-117 [facility] ALT [Catalytic activity/Vol] 16 U/L 13-56 [facility] Globulin (S) [Mass/Vol] 3.2 g/dL 2.2-4.2 [facility] Laboratory - Hematology and Cell countsOrdered By: [facility] Dalia on 08-27-2023 MCH (RBC) [Entitic mass] 31.2 pg 27.0-32.0 [facility] MCHC (RBC) [Mass/Vol] 32.6 g/dL 32-36 [facility] Nucleated RBC/100 WBC (Bld) [Ratio] 0 % 0-5 [facility] Platelet mean volume (Bld) [Entitic vol] 9.9 fL 6.2-12.0 [facility] Platelets (Bld) [#/Vol] 212 10*3/uL 150-450 [facility] No Panel InformationOrdered By: Perlita Gómez on 08-27-2023 31.2 pg 27.0-32.0 [facility] 32.6 g/dL 32-36 [facility] 212 K/mm3 150-450 [facility] 9.9 fl 6.2-12.0 [facility] 0 % 0-5 [facility] 3.2 g/dL 2.2-4.2 [facility] 0.9 RATIO 0.9-2.4 [facility] 71 U/L 45-117 [facility] 16 U/L 13-56 [facility] RBC Auto (Bld) [#/Vol]Ordere d By: Perlita Gómez on 08-27-2023 RBC (Bld) [#/Vol] 3.27 10*6/uL 4.2-5.[address] [facility] Thin prep Papanicolaou smear with manual screeningOrdered By: Perlita Gómez on 08-27-2023 Thin prep Papanicolaou smear with manual screening 2.9 g/dL 3.2-5.0 [facility] Thin prep Papanicolaou smear with manual screening 13 U/L 15-37 [facility] Absolute lymphocyte countOrd ered By: Rell Loera on 08-26-2023 Lymphocytes Auto (Unsp spec) [#/Vol] 1.31 10*3/uL 0.83-4.51 [facility] Automated lymphocyte count a s percentage of total leukocytesOrdered By: Rell Loera on 08-26-2023 Lymphocytes/100 WBC Auto (Unsp spec) 25.5 % 19-41 [facility] Bacteria identified Cx Nom ( U)Ordered By: Rell Loera on 08-26-2023 Culture, urine Escherichia coli [facility] Culture, urine Lactobacillus gasseri [facility] Basophil percentageOrdered B y: Rell Loera on 08-26-2023 Basophil percentage 0 SEEN /hpf 0-5 [facility] Basophils/100 WBC (Bld) 0.2 % 0-1 [facility] Chloride [Moles/Vol] 111 mmol/L 98-107 [facility] Eosinophils/100 WBC (Bld) 1.2 % 0-5 [facility] Glucose [Mass/Vol] 179 mg/dL 74-106 [facility] Comment on above: Fasting Glucose resu lt greater than or equal to 126 mg/dL suggests DIABETES MELLITUS per A.D.A. criteria. Hemoglobin (Bld) [Mass/Vol] 12.4 g/dL 12.0-15.0 [facility] Monocytes/100 WBC (Bld) 6.6 % 0-10 [facility] Neutrophils (Bld) [#/Vol] 3.4 10*3/uL 2.0-7.7 [facility] Neutrophils/100 WBC (Bld) 66.1 % 47-70 [facility] Potassium [Moles/Vol] 3.1 mmol/L 3.5-5.1 [facility] Sodium [Moles/Vol] 141 mmol/L 136-145 [facility] WBC (Bld) [#/Vol] 5.1 10*3/uL 4.4-11.0 [facility] Bilirubin Test strip Ql (U)O rdered By: Rell Loera on 08-26-2023 Bilirubin Ql (U) Negative Negative [facility] Culture, urineOrdered By: Nataliya Loera on 08-26-2023 Bacteria identified Cx Nom (U) Escherichia coli [facility] Bacteria identified Cx Nom (U) Lactobacillus gasseri [facility] Determination of erythrocyte mean corpuscular volume (MCV)Ordered By: Rell Loera on 08-26-2023 MCV (RBC) [Entitic vol] 94.3 fL 81-99 [facility] Erythrocyte distribution wid th ratioOrdered By: Rell Loera on 08-26-2023 Erythrocyte distribution width (RBC) [Ratio] 13.6 % 11.6-14.6 [facility] Erythrocyte distribution wid th standard deviationOrdered By: Rell Loera on 08-26-2023 Erythrocyte distribution width (RBC) [Entitic vol] 46.1 fL 35.1-43.9 [facility] Hematocrit Auto (Bld) [Volum e fraction]Ordered By: Rell Loera on 08-26-2023 Hematocrit (Bld) [Volume fraction] 38.2 % 37-47 [facility] Immature granulocytes/100 WB C Auto (Bld)Ordered By: Rell Loera on 08-26-2023 Immature granulocytes/100 WBC (Bld) 0.400 % 0.0-0.9 [facility] Comment on above: IG% - Immature Granu locytes (promyelocytes, myelocytes and metamyelocytes) > 1% indicates that a LEFT SHIFT is Present. Ketones Test strip Ql (U)Ord ered By: Rell Loera on 08-26-2023 Ketones Ql (U) Negative Negative [facility] Laboratory - Chemistry and C hemistry - challengeOrdered By: Rell Loera on 08-26-2023 CO2 [Moles/Vol] 23.0 mmol/L 21.0-32.0 [facility] Urea nitrogen/Creatinine [Mass ratio] 23.2 mg/mg 10-20 [facility] Laboratory - Chemistry and C hemistry - challengeOrdered By: Perlita Gómez on 08-26-2023 Magnesium [Mass/Vol] 2.1 mg/dL 1.6-2.6 [facility] Laboratory - Hematology and Cell countsOrdered By: Rell Loera on 08-26-2023 MCH (RBC) [Entitic mass] 30.6 pg 27.0-32.0 [facility] MCHC (RBC) [Mass/Vol] 32.5 g/dL 32-36 [facility] Nucleated RBC/100 WBC (Bld) [Ratio] 0 % 0-5 [facility] Platelet mean volume (Bld) [Entitic vol] 9.9 fL 6.2-12.0 [facility] Platelets (Bld) [#/Vol] 222 10*3/uL 150-450 [facility] Mucus LM Ql (Urine sed)Order ed By: Rell Loera on 08-26-2023 Mucus Ql (Urine sed) 0 SEEN /hpf [facility] Nitrite Test strip Ql (U)Ord ered By: Rell Loera on 08-26-2023 Nitrite Ql (U) Negative Negative [facility] No Panel InformationOrdered By: Rell Loera on 08-26-2023 Urine RBC > 100 SEEN /hpf 0-5 [facility] > 100 SEEN /hpf 0-5 [facility] Estimated Creatinine Clearance Calc 84.14 ml/min [facility] Estimated GFR (MDRD) Amer 88 mL/min >60 [facility] Comment on above: GFR Calc Estimated GFR (MDRD) Non-Af Amer 73 mL/min >60 [facility] Comment on above: Non- GFR Calc Protein Test strip Ql (U)Ord ered By: Rell Loera on 08-26-2023 Protein Ql (U) 500 mg/dl Negative [facility] RBC Auto (Bld) [#/Vol]Ordere d By: Rell Loera on 08-26-2023 RBC (Bld) [#/Vol] 4.05 10*6/uL 4.2-5.[address] [facility] Serum or plasma calcium oliver urement (mass/volume)Ordered By: Rell Loera on 08-26-2023 Calcium [Mass/Vol] 9.4 mg/dL 8.5-10.1 [facility] Serum or plasma creatinine m easurement (mass/volume)Ordered By: Rell Loera on 08-26-2023 Creatinine [Mass/Vol] 0.86 mg/dL 0.55-1.02 [facility] Comment on above: The validity of the calculated GFR & GFRAA in patients over 70 years has not been determined. Clinical correlation is essential. Serum or plasma urea nitroge n measurement (mass/volume)Ordered By: Rell Loera on 08-26-2023 Urea nitrogen [Mass/Vol] 20 mg/dL 7-18 [facility] Squamous epithelial cells de tection in urine sediment by light microscopyOrdered By: Rell Loera on 08-26-2023 Epithelial cells.squamous LM Ql (Urine sed) 0 SEEN /hpf 5-10 [facility] Thin prep Papanicolaou smear with manual screeningOrdered By: Rell Loera on 08-26-2023 Thin prep Papanicolaou smear with manual screening 7 5-15 [facility] Urine blood detectionOrdered By: Rell Loera on 08-26-2023 RBC Ql (U) 150 /ul Negative [facility] Urine clarityOrdered By: Bra dley Evaristo on 08-26-2023 Clarity (U) Turbid Clear [facility] Urine color determinationOrd ered By: Rell Loera on 08-26-2023 Color (U) Red Yellow [facility] Urine glucose detectionOrder ed By: Rell Loera on 08-26-2023 Glucose Ql (U) 250 mg/dl Normal [facility] Urine leukocyte esterase det ection by dipstickOrdered By: Rell Loera on 08-26-2023 Leukocyte esterase Test strip Ql (U) Negative Negative [facility] Urine pHOrdered By: Rell Loera on 08-26-2023 pH (U) 7.0 [pH] 5.0 - 8.0 [facility] Urine sediment bacteria coun t by microscopy (number/high power field)Ordered By: Rell Loera on 08-26-2023 Bacteria LM.HPF (Urine sed) [#/Area] 2 /[HPF] None Seen [facility] Urine specific gravity measu rementOrdered By: Rell Loera on 08-26-2023 Specific gravity (U) [Rel density] 1.010 1.002-1.030 [facility] Urine urobilinogen measureme ntOrdered By: Rell Loera on 08-26-2023 Urobilinogen Ql (U) Normal mg/dl Normal [facility] Basophil percentageOrdered B y: Mike Tom on 08-11-2023 Basophil percentage 143 mg/dL <[address] [facility] Basophil percentage 221 mg/dL <[address] [facility] Cholesterol [Mass/Vol] 143 mg/dL <200 [facility] Comment on above: <200 mg/dL Desirable 200-240 mg/dL Borderline >240 mg/dL High Risk Triglyceride [Mass/Vol] 221 mg/dL <199 [facility] Comment on above: The drugs N-Acetylcy steine and Metamizole may falsely depress this assay.Serum Triglycerides Reference Interval Normal <150 mg/dL Borderline high 150 - 199 mg/dL High 200 - 499 mg/dL Very High > or = 500 mg/dL Laboratory - Chemistry and C hemistry - challengeOrdered By: Mike Tom on 08-11-2023 Cholesterol in HDL [Mass/Vol] 51 mg/dL >40 [facility] Comment on above: The drugs N-Acetylcy steine and Metamizole may falsely depress this assay. Reference Range HDL <40 mg/dL Low HDL Cholesterol HDL >or= 60 mg/dL High HDL Cholesterol Cholesterol in LDL [Mass/Vol] 48 mg/dL 0-130 [facility] Laboratory - Hematology and Cell countson 08-11-2023 HbA1c (Bld) [Mass fraction] 7.6 % 4.2-6.3 [facility] No Panel InformationOrdered By: Mike Tom on 08-11-2023 Free Triiodothyronine (T3) pg/dL 3.5 pg/mL 2.18-3.98 [facility] Vitamin D 25-Hydroxy 20.5 ng/mL [facility] Comment on above: Vitamin D 25(OH) Sta tus Range Deficiency <20 ng/mL (50nmol/L) Insufficiency 20 - 30 ng/mL (50 - 75 nmol/L) Sufficiency 30 - 100 ng/mL (75 - 250 nmol/L) Toxicity >100 ng/mL (>250 nmol/L) VLDL Cholesterol 44 mg/dL 5-40 [facility] 51 mg/dL >40 [facility] 48 mg/dL 0-130 [facility] 44 mg/dL 5-40 [facility] 3.5 pg/mL 2.18-3.98 [facility] 20.5 ng/mL [facility] No Panel Informationon 08-10 7.6 % 4.2-6.3 [facility] Serum or plasma thyroid stim ulating hormone (TSH) measurement (units/volume)Ordered By: Mike Tom on 08-11-2023 TSH Qn 0.26 uIU/mL 0.358-3.74 [facility] Thin prep Papanicolaou smear with manual screeningOrdered By: Mike Tom on 08-11-2023 Thin prep Papanicolaou smear with manual screening 1.20 ng/dL 0.76-1.46 [facility] Absolute lymphocyte countOrd ered By: Allen Meraz on 08-02-2023 Lymphocytes Auto (Unsp spec) [#/Vol] 1.73 10*3/uL 0.83-4.51 [facility] Automated lymphocyte count a s percentage of total leukocytesOrdered By: Allen Meraz on 08-02-2023 Lymphocytes/100 WBC Auto (Unsp spec) 28.1 % 19-41 [facility] Basophil percentageOrdered B y: Allen Meraz on 08-02-2023 Basophil percentage 13.0 g/dL 12.0-15.[address] [facility] Basophil percentage 209 mg/dL 74-[address] [facility] Basophil percentage 138 mmol/L 136-[address] [facility] Basophil percentage 3.4 mmol/L 3.5-5.[address] [facility] Basophil percentage 109 mmol/L 98-[address] [facility] Basophils (Bld) [#/Vol] 6.2 10*3/uL 4.4-11.0 [facility] Basophils (Bld) [#/Vol] 4.0 10*3/uL 2.0-7.7 [facility] Basophils/100 WBC (Bld) 0.3 % 0-1 [facility] Basophils/100 WBC (Bld) 64.8 % 47-70 [facility] Basophils/100 WBC (Bld) 5.7 % 0-10 [facility] Basophils/100 WBC (Bld) 0.8 % 0-5 [facility] Chloride [Moles/Vol] 109 mmol/L 98-107 [facility] Eosinophils/100 WBC (Bld) 0.8 % 0-5 [facility] Glucose [Mass/Vol] 209 mg/dL 74-106 [facility] Comment on above: Glucose result great er than or equal to 200 mg/dLsuggests DIABETES MELLITUS per A.D.A. criteria. Hemoglobin (Bld) [Mass/Vol] 13.0 g/dL 12.0-15.0 [facility] Monocytes/100 WBC (Bld) 5.7 % 0-10 [facility] Neutrophils (Bld) [#/Vol] 4.0 10*3/uL 2.0-7.7 [facility] Neutrophils/100 WBC (Bld) 64.8 % 47-70 [facility] Potassium [Moles/Vol] 3.4 mmol/L 3.5-5.1 [facility] Sodium [Moles/Vol] 138 mmol/L 136-145 [facility] WBC (Bld) [#/Vol] 6.2 10*3/uL 4.4-11.0 [facility] Determination of erythrocyte mean corpuscular volume (MCV)Ordered By: Allen Meraz on 08-02-2023 MCV (RBC) [Entitic vol] 94.2 fL 81-99 [facility] Erythrocyte distribution wid th ratioOrdered By: [place] Kt on 08-02-2023 Erythrocyte distribution width (RBC) [Ratio] 14.0 % 11.6-14.6 [facility] Erythrocyte distribution wid th standard deviationOrdered By: [facility] Mer[facility] on 08-02-2023 Erythrocyte distribution width (RBC) [Entitic vol] 48.4 fL 35.1-43.9 [facility] Hematocrit Auto (Bld) [Volum e fraction]Ordered By: [facility] Mer[facility] on 08-02-2023 Hematocrit (Bld) [Volume fraction] 38.7 % 37-47 [facility] Immature granulocytes/100 WB C Auto (Bld)Ordered By: [facility] on 08-02-2023 Immature granulocytes/100 WBC (Bld) 0.300 % 0.0-0.9 [facility] Comment on above: IG% - Immature Granu locytes (promyelocytes, myelocytes and metamyelocytes) > 1% indicates that a LEFT SHIFT is Present. Laboratory - Chemistry and C hemistry - challengeOrdered By: Allen Meraz on 08-02-2023 CO2 [Moles/Vol] 23.0 mmol/L 21.0-32.0 [facility] Natriuretic peptide B (Bld) [Mass/Vol] 73.6 pg/mL 0-100 [facility] Urea nitrogen/Creatinine [Mass ratio] 23.4 mg/mg 10-20 [facility] Laboratory - Hematology and Cell countsOrdered By: [place] Kt on 08-02-2023 MCH (RBC) [Entitic mass] 31.6 pg 27.0-32.0 [facility] MCHC (RBC) [Mass/Vol] 33.6 g/dL 32-36 [facility] Nucleated RBC/100 WBC (Bld) [Ratio] 0 % 0-5 [facility] Platelet mean volume (Bld) [Entitic vol] 9.7 fL 6.2-12.0 [facility] Platelets (Bld) [#/Vol] 207 10*3/uL 150-450 [facility] Laboratory - Microbiology an d Antimicrobial susceptibilityOrdered By: Allen Meraz on 08-02-2023 SARS-CoV-2 (COVID-19) RNA ROSALIA+probe Ql (Unsp spec) [facility] No Panel InformationOrdered By: Allen Meraz on 08-02-2023 Estimated Creatinine Clearance Calc 77.81 ml/min [facility] Estimated GFR (MDRD) Amer 80 mL/min >60 [facility] Comment on above: GFR Calc Estimated GFR (MDRD) Non-Af Amer 66 mL/min >60 [facility] Comment on above: Non- GFR Calc 31.6 pg 27.0-32.0 [facility] 33.6 g/dL 32-36 [facility] 207 K/mm3 150-450 [facility] 9.7 fl 6.2-12.0 [facility] 0 % 0-5 [facility] 66 mL/min >60 [facility] 80 mL/min >60 [facility] 77.81 ml/min [facility] 23.4 RATIO 10-20 [facility] 23.0 mmol/L 21.0-32.0 [facility] 73.6 pg/mL 0-100 [facility] RBC Auto (Bld) [#/Vol]Ordere d By: Allen Meraz on 08-02-2023 RBC (Bld) [#/Vol] 4.11 10*6/uL 4.2-5.[address] [facility] Serum or plasma calcium oliver urement (mass/volume)Ordered By: Allen Meraz on 08-02-2023 Calcium [Mass/Vol] 9.3 mg/dL 8.5-10.1 [facility] Serum or plasma creatinine m easurement (mass/volume)Ordered By: Allen Meraz on 08-02-2023 Creatinine [Mass/Vol] 0.94 mg/dL 0.55-1.02 [facility] Comment on above: The validity of the calculated GFR & GFRAA in patients over 70 years has not been determined. Clinical correlation is essential. Serum or plasma urea nitroge n measurement (mass/volume)Ordered By: Allen Meraz on 08-02-2023 Urea nitrogen [Mass/Vol] 22 mg/dL 7-18 [facility] Thin prep Papanicolaou smear with manual screeningOrdered By: Allen Meraz on 08-02-2023 Thin prep Papanicolaou smear with manual screening 6 5-15 [facility] Absolute lymphocyte countOrd ered By: Ryan Hidalgo on 05-18-2023 Lymphocytes Auto (Unsp spec) [#/Vol] 1.97 10*3/uL 0.83-4.51 [facility] Basophil percentageOrdered B y: Ryan Hidalgo on 05-18-2023 Basophil percentage 200 mg/dL 74-[address] [facility] Basophil percentage 140 mmol/L 136-[address] [facility] Basophil percentage 4.1 mmol/L 3.5-5.[address] [facility] Basophil percentage 111 mmol/L 98-[address] [facility] Basophils (Bld) [#/Vol] 4.6 10*3/uL 4.4-11.0 [facility] Basophils (Bld) [#/Vol] 2.3 10*3/uL 2.0-7.7 [facility] Basophils/100 WBC (Bld) 0.2 % 0-1 [facility] Basophils/100 WBC (Bld) 49.4 % 47-70 [facility] Basophils/100 WBC (Bld) 1.1 % 0-5 [facility] Chloride [Moles/Vol] 111 mmol/L 98-107 [facility] Eosinophils/100 WBC (Bld) 1.1 % 0-5 [facility] Glucose [Mass/Vol] 200 mg/dL 74-106 [facility] Comment on above: Glucose result great er than or equal to 200 mg/dLsuggests DIABETES MELLITUS per A.D.A. criteria. Neutrophils (Bld) [#/Vol] 2.3 10*3/uL 2.0-7.7 [facility] Neutrophils/100 WBC (Bld) 49.4 % 47-70 [facility] Potassium [Moles/Vol] 4.1 mmol/L 3.5-5.1 [facility] Comment on above: Moderate Hemolysis, Result may be falsely increased. Sodium [Moles/Vol] 140 mmol/L 136-145 [facility] WBC (Bld) [#/Vol] 4.6 10*3/uL 4.4-11.0 [facility] Blood erythrocytes count (nu mber/volume)Ordered By: Ryan Hidalgo on 05-18-2023 RBC (Bld) [#/Vol] 4.25 10*6/uL 4.2-5.[address] [facility] Blood hemoglobin measurement (mass/volume)Ordered By: Ryan Hidalgo on 05-18-2023 Hemoglobin (Bld) [Mass/Vol] 13.2 g/dL 12.0-15.0 [facility] Blood lymphocytes/100 leukoc ytesOrdered By: Ryan Hidalgo on 05-18-2023 Lymphocytes/100 WBC (Bld) 43.0 % 19-41 [facility] Blood monocytes/100 leukocyt esOrdered By: Ryan Hidalgo on 05-18-2023 Monocytes/100 WBC (Bld) 6.1 % 0-10 [facility] Blood platelet mean volumeOr dered By: Ryan Hidalgo on 05-18-2023 Platelet mean volume (Bld) [Entitic vol] 10.2 fL 6.2-12.0 [facility] Determination of erythrocyte mean corpuscular volume (MCV)Ordered By: Ryan Hidalgo on 05-18-2023 MCV (RBC) [Entitic vol] 95.5 fL 81-99 [facility] Glucose Glucometer (BldC) [M ass/Vol]Ordered By: Ryan Hidalgo on 05-18-2023 Glucose [Mass/Vol] 97 mg/dL 74-106 [facility] Comment on above: MANAGEMENT OF PATIEN T CARE PER NURSING PROTOCOL Hematocrit Auto (Bld) [Volum e fraction]Ordered By: Ryan Hidalgo on 05-18-2023 Hematocrit (Bld) [Volume fraction] 40.6 % 37-47 [facility] Laboratory - Chemistry and C hemistry - challengeOrdered By: Ryan Hidalgo on 05-18-2023 CO2 [Moles/Vol] 25.0 mmol/L 21.0-32.0 [facility] Natriuretic peptide B (Bld) [Mass/Vol] 49.0 pg/mL 0-100 [facility] Urea nitrogen/Creatinine [Mass ratio] 29.0 mg/mg 10-20 [facility] Laboratory - Hematology and Cell countsOrdered By: Ryan Hidalgo on 05-18-2023 Erythrocyte distribution width (RBC) [Entitic vol] 47.5 fL 35.1-43.9 [facility] Erythrocyte distribution width (RBC) [Ratio] 13.5 % 11.6-14.6 [facility] Immature granulocytes/100 WBC (Bld) 0.200 % 0.0-0.9 [facility] Comment on above: IG% - Immature Granu locytes (promyelocytes, myelocytes and metamyelocytes) > 1% indicates that a LEFT SHIFT is Present. MCH (RBC) [Entitic mass] 31.1 pg 27.0-32.0 [facility] Nucleated RBC/100 WBC (Bld) [Ratio] 0 % 0-5 [facility] MCHC Auto (RBC) [Mass/Vol]Or dered By: Ryan Hidalgo on 05-18-2023 MCHC (RBC) [Mass/Vol] 32.5 g/dL 32-36 [facility] No Panel InformationOrdered By: Ryan Hidalgo on 05-18-2023 Troponin I High Sensitivity 8 pg/mL 3.0-54.0 [facility] Comment on above: Please Note: [place] t Units and Gender Specific Reference Ranges. For more information see Policy Stat Procedure [place] High Sensitivity Troponin (TNIH) and attachments. 8 pg/mL 3.0-54.0 [facility] Estimated Creatinine Clearance Calc 52.51 ml/min [facility] Estimated GFR (MDRD) Amer 69 mL/min >60 [facility] Comment on above: GFR Calc Estimated GFR (MDRD) Non-Af Amer 57 mL/min >60 [facility] Comment on above: Non- GFR Calc 31.1 pg 27.0-32.0 [facility] 13.5 % 11.6-14.6 [facility] 47.5 fl 35.1-43.9 [facility] 0.200 % 0.0-0.9 [facility] 0 % 0-5 [facility] 57 mL/min >60 [facility] 69 mL/min >60 [facility] 52.51 ml/min [facility] 29.0 RATIO 10-20 [facility] 25.0 mmol/L 21.0-32.0 [facility] 49.0 pg/mL 0-100 [facility] Platelets bldOrdered By: Liliya Hidalgo on 05-18-2023 Platelets (Bld) [#/Vol] 195 10*3/uL 150-450 [facility] Serum or plasma calcium oliver urement (mass/volume)Ordered By: Ryan Hidalgo on 05-18-2023 Calcium [Mass/Vol] 8.7 mg/dL 8.5-10.1 [facility] Serum or plasma creatinine m easurement (mass/volume)Ordered By: Ryan Hidalgo on 05-18-2023 Creatinine [Mass/Vol] 1.07 mg/dL 0.55-1.02 [facility] Comment on above: The validity of the calculated GFR & GFRAA in patients over 70 years has not been determined. Clinical correlation is essential. Serum or plasma urea nitroge n measurement (mass/volume)Ordered By: Ryan Hidalgo on 05-18-2023 Urea nitrogen [Mass/Vol] 31 mg/dL 7-18 [facility] Thin prep Papanicolaou smear with manual screeningOrdered By: Ryan Hidalgo on 05-18-2023 Thin prep Papanicolaou smear with manual screening 4 5-15 [facility] Laboratory - Hematology and Cell countson 05-11-2023 HbA1c (Bld) [Mass fraction] 9.5 % 4.2-6.3 [facility] Laboratory - Chemistry and C hemistry - challengeOrdered By: Mike Tom on 03-08-2023 Free T4 [Mass/Vol] 0.90 ng/dL 0.76-1.46 [facility] Laboratory - Chemistry and C hemistry - challengeOrdered By: Cr Ho on 03-08-2023 Natriuretic peptide B (Bld) [Mass/Vol] 30.3 pg/mL 0-100 [facility] No Panel InformationOrdered By: Mike Tom on 03-08-2023 Free Triiodothyronine (T3) pg/dL 2.8 pg/mL 2.18-3.98 [facility] Thyroid Stimulating Hormone (TSH) 1.67 uIU/mL 0.358-3.74 [facility] Laboratory - Hematology and Cell countson 01-26-2023 HbA1c (Bld) [Mass fraction] 7.7 % 4.2-6.3 [facility] Laboratory - Drug toxicology Ordered By: Darline Solano on 12-20-2022 Amphetamines Ql (U) Negative <1000 ng/mL [facility] Benzodiazepines Ql (U) Negative < 200 ng/mL [facility] Cannabinoids Screen Ql (U) Negative < 50 ng/mL [facility] Cocaine Ql (U) Negative < 300 ng/mL [facility] Opiates Ql (U) Positive < 300 ng/mL [facility] No Panel InformationOrdered By: Darline Solano on 12-20-2022 MDMA (Ecstasy) Screen Negative < 500 ng/mL [facility] Urine Barbiturates Screen Negative < 200 ng/mL [facility] Urine Drug Screen Comment [facility] Comment on above: CONFIRMATORY TESTING FOR ALL [...] TESTING MUST BE ORDERED SEPARATELY. USE TESTMNEMONIC: [facility] Urine Methadone Screen Negative < 300 ng/mL [facility] Urine phencyclidine (PCP) de tectionOrdered By: Darline Solano on 12-20-2022 Phencyclidine Ql (U) Negative < 25 ng/mL [facility] Absolute lymphocyte countOrd ered By: Dr. Alvarez on 10-18-2022 Lymphocytes Auto (Unsp spec) [#/Vol] 1.71 10*3/uL 0.83-4.51 [facility] Basophil percentageOrdered B y: Dr. Alvarez on 10-18-2022 Basophils/100 WBC (Bld) 0.4 % 0-1 [facility] Bilirubin [Mass/Vol] 0.80 mg/dL 0.20-1.00 [facility] Comment on above: For patients on eltr ombopag therapy, use of Dimension [place] TBIL is not recommended. Chloride [Moles/Vol] 113 mmol/L 98-107 [facility] Eosinophils/100 WBC (Bld) 0.5 % 0-5 [facility] Glucose [Mass/Vol] 127 mg/dL 74-106 [facility] Comment on above: Fasting Glucose resu lt greater than or equal to 126 mg/dL suggests DIABETES MELLITUS per A.D.A. criteria. Neutrophils (Bld) [#/Vol] 5.1 10*3/uL 2.0-7.7 [facility] Neutrophils/100 WBC (Bld) 68.5 % 47-70 [facility] Potassium [Moles/Vol] 3.7 mmol/L 3.5-5.1 [facility] Protein [Mass/Vol] 8.0 g/dL 6.4-8.2 [facility] Sodium [Moles/Vol] 142 mmol/L 136-145 [facility] WBC (Bld) [#/Vol] 7.4 10*3/uL 4.4-11.0 [facility] Blood erythrocytes count (nu mber/volume)Ordered By: Dr. Alvarez on 10-18-2022 RBC (Bld) [#/Vol] 4.21 10*6/uL 4.2-5.[address] [facility] Blood hemoglobin measurement (mass/volume)Ordered By: Dr. Alvarez on 10-18-2022 Hemoglobin (Bld) [Mass/Vol] 13.2 g/dL 12.0-15.0 [facility] Blood lymphocytes/100 leukoc ytesOrdered By: Dr. Alvarez on 10-18-2022 Lymphocytes/100 WBC (Bld) 23.1 % 19-41 [facility] Blood monocytes/100 leukocyt esOrdered By: Dr. Alvarez on 10-18-2022 Monocytes/100 WBC (Bld) 7.4 % 0-10 [facility] Blood platelet mean volumeOr dered By: Dr. Alvarez on 10-18-2022 Platelet mean volume (Bld) [Entitic vol] 9.5 fL 6.2-12.0 [facility] Determination of erythrocyte mean corpuscular volume (MCV)Ordered By: Dr. Alvarez on 10-18-2022 MCV (RBC) [Entitic vol] 97.9 fL 81-99 [facility] Hematocrit Auto (Bld) [Volum e fraction]Ordered By: Dr. Alvarez on 10-18-2022 Hematocrit (Bld) [Volume fraction] 41.2 % 37-47 [facility] Laboratory - Chemistry and C hemistry - challengeOrdered By: Dr. Alvarez on 10-18-2022 ALP [Catalytic activity/Vol] 107 U/L 45-117 [facility] ALT [Catalytic activity/Vol] 19 U/L 13-56 [facility] CO2 [Moles/Vol] 22.0 mmol/L 21.0-32.0 [facility] Globulin (S) [Mass/Vol] 4.0 g/dL 2.2-4.2 [facility] Lipase [Catalytic activity/Vol] 49 U/L 13-75 [facility] [facility] Comment on above: Please note:LIPASE r evised reference range effective 22. New Lipase methodology. Expected to produce lower values than the previous assay method. NEW Reference Range: 13 - 75 U/L Urea nitrogen/Creatinine [Mass ratio] 43.4 mg/mg 10-20 [facility] Laboratory - Hematology and Cell countsOrdered By: Dr. Alvarez on 10-18-2022 Erythrocyte distribution width (RBC) [Entitic vol] 51.3 fL 35.1-43.9 [facility] Erythrocyte distribution width (RBC) [Ratio] 14.6 % 11.6-14.6 [facility] Immature granulocytes/100 WBC (Bld) 0.100 % 0.0-0.9 [facility] Comment on above: IG% - Immature Granu locytes (promyelocytes, myelocytes and metamyelocytes) > 1% indicates that a LEFT SHIFT is Present. MCH (RBC) [Entitic mass] 31.4 pg 27.0-32.0 [facility] Nucleated RBC/100 WBC (Bld) [Ratio] 0 % 0-5 [facility] MCHC Auto (RBC) [Mass/Vol]Or dered By: Dr. Alvarez on 10-18-2022 MCHC (RBC) [Mass/Vol] 32.0 g/dL 32-36 [facility] No Panel InformationOrdered By: Dr. Alvarez on 10-18-2022 Estimated Creatinine Clearance Calc 70.16 ml/min [facility] Estimated GFR (MDRD) Amer 96 mL/min >60 [facility] Comment on above: GFR Calc Estimated GFR (MDRD) Non-Af Amer 79 mL/min >60 [facility] Comment on above: Non- GFR Calc Platelets bldOrdered By: Dr. Alvarez on 10-18-2022 Platelets (Bld) [#/Vol] 231 10*3/uL 150-450 [facility] Serum or plasma albumin oliver urement (mass/volume)Ordered By: Dr. Alvarez on 10-18-2022 Albumin [Mass/Vol] 4.0 g/dL 3.2-5.0 [facility] Serum or plasma albumin/glob ulin mass ratioOrdered By: Dr. Alvarez on 10-18-2022 Albumin/Globulin [Mass ratio] 1.0 {ratio} 0.9-2.4 [facility] Serum or plasma calcium oliver urement (mass/volume)Ordered By: Dr. Alvarez on 10-18-2022 Calcium [Mass/Vol] 9.1 mg/dL 8.5-10.1 [facility] Serum or plasma creatinine m easurement (mass/volume)Ordered By: Dr. Alvarez on 10-18-2022 Creatinine [Mass/Vol] 0.81 mg/dL 0.55-1.02 [facility] Comment on above: The validity of the calculated GFR & GFRAA in patients over 70 years has not been determined. Clinical correlation is essential. Serum or plasma urea nitroge n measurement (mass/volume)Ordered By: Dr. Alvarez on 10-18-2022 Urea nitrogen [Mass/Vol] 35 mg/dL 7-18 [facility] Thin prep Papanicolaou smear with manual screeningOrdered By: Dr. Alvarez on 10-18-2022 Thin prep Papanicolaou smear with manual screening 14 U/L 15-37 [facility] Thin prep Papanicolaou smear with manual screening 7 5-15 [facility] Absolute lymphocyte countOrd ered By: Dr. Meraz on 10-07-2022 Lymphocytes Auto (Unsp spec) [#/Vol] 2.01 10*3/uL 0.83-4.51 [facility] Basophil percentageOrdered B y: Dr. Meraz on 10-07-2022 Basophils/100 WBC (Bld) 0.3 % 0-1 [facility] Bilirubin [Mass/Vol] 0.40 mg/dL 0.20-1.00 [facility] Comment on above: For patients on eltr ombopag therapy, use of Dimension [place] TBIL is not recommended. Chloride [Moles/Vol] 112 mmol/L 98-107 [facility] Eosinophils/100 WBC (Bld) 1.7 % 0-5 [facility] Glucose [Mass/Vol] 216 mg/dL 74-106 [facility] Comment on above: Glucose result great er than or equal to 200 mg/dLsuggests DIABETES MELLITUS per A.D.A. criteria. Neutrophils (Bld) [#/Vol] 3.3 10*3/uL 2.0-7.7 [facility] Neutrophils/100 WBC (Bld) 56.2 % 47-70 [facility] Potassium [Moles/Vol] 3.9 mmol/L 3.5-5.1 [facility] Protein [Mass/Vol] 6.5 g/dL 6.4-8.2 [facility] Sodium [Moles/Vol] 143 mmol/L 136-145 [facility] WBC (Bld) [#/Vol] 5.8 10*3/uL 4.4-11.0 [facility] Blood erythrocytes count (nu mber/volume)Ordered By: Dr. Meraz on 10-07-2022 RBC (Bld) [#/Vol] 4.09 10*6/uL 4.2-5.[address] [facility] Blood hemoglobin measurement (mass/volume)Ordered By: Dr. Meraz on 10-07-2022 Hemoglobin (Bld) [Mass/Vol] 12.6 g/dL 12.0-15.0 [facility] Blood lymphocytes/100 leukoc ytesOrdered By: Dr. Meraz on 10-07-2022 Lymphocytes/100 WBC (Bld) 34.7 % 19-41 [facility] Blood monocytes/100 leukocyt esOrdered By: Dr. Meraz on 10-07-2022 Monocytes/100 WBC (Bld) 6.6 % 0-10 [facility] Blood platelet mean volumeOr dered By: Dr. Meraz on 10-07-2022 Platelet mean volume (Bld) [Entitic vol] 9.8 fL 6.2-12.0 [facility] Determination of erythrocyte mean corpuscular volume (MCV)Ordered By: Dr. Meraz on 10-07-2022 MCV (RBC) [Entitic vol] 94.9 fL 81-99 [facility] Hematocrit Auto (Bld) [Volum e fraction]Ordered By: Dr. Meraz on 10-07-2022 Hematocrit (Bld) [Volume fraction] 38.8 % 37-47 [facility] - Chemistry and C hemistry - challengeOrdered By: Dr. Meraz on 10-07-2022 ALP [Catalytic activity/Vol] 92 U/L 45-117 [facility] ALT [Catalytic activity/Vol] 19 U/L 13-56 [facility] CO2 [Moles/Vol] 23.0 mmol/L 21.0-32.0 [facility] Globulin (S) [Mass/Vol] 3.3 g/dL 2.2-4.2 [facility] Lipase [Catalytic activity/Vol] 34 U/L 13-75 [facility] Comment on above: Please note:LIPASE r evised reference range effective 22. New Lipase methodology. Expected to produce lower values than the previous assay method. NEW Reference Range: 13 - 75 U/L Urea nitrogen/Creatinine [Mass ratio] 19.0 mg/mg 10-20 [facility] - Hematology and Cell countsOrdered By: Dr. Meraz on 10-07-2022 Erythrocyte distribution width (RBC) [Entitic vol] 45.7 fL 35.1-43.9 [facility] Erythrocyte distribution width (RBC) [Ratio] 13.3 % 11.6-14.6 [facility] Immature granulocytes/100 WBC (Bld) 0.500 % 0.0-0.9 [facility] Comment on above: IG% - Immature Granu locytes (promyelocytes, myelocytes and metamyelocytes) > 1% indicates that a LEFT SHIFT is Present. MCH (RBC) [Entitic mass] 30.8 pg 27.0-32.0 [facility] Nucleated RBC/100 WBC (Bld) [Ratio] 0 % 0-5 [facility] Auto (RBC) [Mass/Vol]Or dered By: Dr. Meraz on 10-07-2022 MCHC (RBC) [Mass/Vol] 32.5 g/dL 32-36 [facility] No Panel InformationOrdered By: Dr. Meraz on 10-07-2022 Estimated Creatinine Clearance Calc 63.85 ml/min [facility] Estimated GFR (MDRD) Amer 85 mL/min >60 [facility] Comment on above: GFR Calc Estimated GFR (MDRD) Non-Af Amer 70 mL/min >60 [facility] Comment on above: Non- GFR Calc Ethyl Alcohol Level 4.0 mg/dL [facility] Comment on above: The serum:whole bloo d ethanol ratio is approximately 1.14and varies slightly with hematocrit. Medical Alcohol reference interval and critical value innon-tolerant individuals; 50 - 100 Impairment 100 Intoxication 100 - 250 Severe Poisoning 250 - 400 Deep/possible fatal coma Troponin I High Sensitivity 8 pg/mL 3.0-54.0 [facility] Comment on above: Please Note: New [place] t Units and Gender Specific Reference Ranges. For more information see Policy Stat Procedure [place] High Sensitivity Troponin (TNIH) and attachments. Platelets bldOrdered By: Dr. Meraz on 10-07-2022 Platelets (Bld) [#/Vol] 166 10*3/uL 150-450 [facility] Serum or plasma albumin oliver urement (mass/volume)Ordered By: Dr. Meraz on 10-07-2022 Albumin [Mass/Vol] 3.2 g/dL 3.2-5.0 [facility] Serum or plasma albumin/glob ulin mass ratioOrdered By: Dr. Meraz on 10-07-2022 Albumin/Globulin [Mass ratio] 1.0 {ratio} 0.9-2.4 [facility] Serum or plasma calcium oliver urement (mass/volume)Ordered By: Dr. Meraz on 10-07-2022 Calcium [Mass/Vol] 8.7 mg/dL 8.5-10.1 [facility] Serum or plasma creatinine m easurement (mass/volume)Ordered By: Dr. Meraz on 10-07-2022 Creatinine [Mass/Vol] 0.89 mg/dL 0.55-1.02 [facility] Comment on above: The validity of the calculated GFR & GFRAA in patients over 70 years has not been determined. Clinical correlation is essential. Serum or plasma urea nitroge n measurement (mass/volume)Ordered By: Dr. Meraz on 10-07-2022 Urea nitrogen [Mass/Vol] 17 mg/dL 7-18 [facility] Thin prep Papanicolaou smear with manual screeningOrdered By: Dr. Meraz on 10-07-2022 Thin prep Papanicolaou smear with manual screening 15 U/L 15-37 [facility] Thin prep Papanicolaou smear with manual screening 8 5-15 [facility] Basophil percentageOrdered B y: Bryan Mitchell on 10-01-2022 Chloride [Moles/Vol] 111 mmol/L 98-107 [facility] Glucose [Mass/Vol] 187 mg/dL 74-106 [facility] Comment on above: Fasting Glucose resu lt greater than or equal to 126 mg/dL suggests DIABETES MELLITUS per A.D.A. criteria. Potassium [Moles/Vol] 3.5 mmol/L 3.5-5.1 [facility] Sodium [Moles/Vol] 137 mmol/L 136-145 [facility] Laboratory - Chemistry and C hemistry - challengeOrdered By: Bryan Mitchell on 10-01-2022 CO2 [Moles/Vol] 25.0 mmol/L 21.0-32.0 [facility] Urea nitrogen/Creatinine [Mass ratio] 22.4 mg/mg 10-20 [facility] No Panel InformationOrdered By: Bryan Mitchell on 10-01-2022 Estimated GFR (MDRD) Amer 96 mL/min >60 [facility] Comment on above: GFR Calc Estimated GFR (MDRD) Non-Af Amer 79 mL/min >60 [facility] Comment on above: Non- GFR Calc Serum or plasma calcium oliver urement (mass/volume)Ordered By: Bryan Mitchell on 10-01-2022 Calcium [Mass/Vol] 8.8 mg/dL 8.5-10.1 [facility] Serum or plasma creatinine m easurement (mass/volume)Ordered By: Bryan Mitchell on 10-01-2022 Creatinine [Mass/Vol] 0.80 mg/dL 0.55-1.02 [facility] Comment on above: The validity of the calculated GFR & GFRAA in patients over 70 years has not been determined. Clinical correlation is essential. Serum or plasma urea nitroge n measurement (mass/volume)Ordered By: Bryan Mitchell on 10-01-2022 Urea nitrogen [Mass/Vol] 18 mg/dL 7-18 [facility] Thin prep Papanicolaou smear with manual screeningOrdered By: Bryan Mitchell on 10-01-2022 Thin prep Papanicolaou smear with manual screening 1 5-15 [facility] - Hematology and Cell countson 09-23-2022 HbA1c (Bld) [Mass fraction] 8.6 % 4.2-6.3 [facility] BETA HCG, QUANT, BLOODon HCG (Quant) Serum 7.8 mIU/mL Normal [facility] Comment on above: Result Comment: Non- [...] By: #### Q HCGB, CRP #### [facility] (DEFAULT) [address] [place] [address] BLOOD CULTUREon 09-20-2022 Bacteria identified Cx Nom (Unsp spec) NO GROWTH DAY 5 OF 5 Normal [facility] Comment on above: Order Comment: 2 Bot tles (1 Set - consists of 1 Aerobic bottle and 1 Anaerobic bottle) -1st Peripheral DrawFor syringe method draw:If able to obtain adequate sample (20 ml) inoculate anaerobic bottle firstIf inadequate sample obtained (less than 20 ml) inoculate aerobic bottle firstFor vacutainer method draw: Fill aerobic bottle first, then anaerobic Performed By: #### P TPTT #### [facility] (DEFAULT) [address] [address] Bacteria identified Cx Nom (Unsp spec) NO GROWTH DAY 5 OF 5 Normal [facility] Comment on above: Order Comment: 2 Bot [...] anaerobic Performed By: #### B LDCULT #### [facility] (DEFAULT) [address] [address] C REACTIVE PROTEINon 023 CRP [Mass/Vol] 8.00 mg/L Normal <10.00 [facility] Comment on above: Performed By: #### Q HCGB, CRP #### [facility] (DEFAULT) [address] [address] CRP High sensitivity method [Mass/Vol] 8.00 mg/L NINF - 10.00 mg/L [facility] Interpretation and review of laboratory results Normal [facility] CBC AND ELECTRONIC DIFFon Abs Baso Auto < Normal 0.00-0.15 [facility] Comment on above: Performed By: #### L [id number] #### [facility] (DEFAULT) [address] [address] Basophils/100 WBC (Bld) 0.4 % Normal [facility] Comment on above: Performed By: #### L [id number] #### [facility] (DEFAULT) [address] [address] DIFF STATUS Electronic Differential Normal [facility] Comment on above: Performed By: #### L [id number] #### [facility] (DEFAULT) [address] [address] Eosinophils (Bld) [#/Vol] 0.08 10*3/uL Normal 0.00-0.42 [facility] Comment on above: Performed By: #### L [id number] #### [facility] (DEFAULT) [address] [place] [address] Eosinophils/100 WBC (Bld) 1.1 % Normal [facility] Comment on above: Performed By: #### L [id number] #### [facility] (DEFAULT) [address] [place] [address] Hematocrit (Bld) [Volume fraction] 42.8 % Normal 34.9-44.3 [facility] Comment on above: Performed By: #### L [id number] #### [facility] (DEFAULT) [address] [place] [address] Hemoglobin (Bld) [Mass/Vol] 14.3 g/dL Normal 11.4-15.2 [facility] Comment on above: Performed By: #### L [id number] #### [facility] (DEFAULT) [address] [place] [address] Immature Grans % 0.3 % Normal [facility] Comment on above: Performed By: #### L [id number] #### [facility] (DEFAULT) [address] [place] [address] Immature Grans Absolute < Normal <=0.08 [facility] Comment on above: Performed By: #### L [id number] #### [facility] (DEFAULT) [address] [place] [address] Lymphocytes (Bld) [#/Vol] 2.40 10*3/uL Normal 1.16-3.51 [facility] Comment on above: Performed By: #### L AB980 #### [facility] (DEFAULT) [address] [place] [address] Lymphocytes/100 WBC (Bld) 33.9 % Normal [facility] Comment on above: Performed By: #### L [id number] #### [facility] (DEFAULT) [address] [place] [address] MCV (RBC) [Entitic vol] 93.7 fL Normal 79.6-97.7 [facility] Comment on above: Performed By: #### L [id number] #### [facility] (DEFAULT) [address] [place] [address] Mean Cell Hgb 31.3 pg Normal 25.9-33.9 [facility] Comment on above: Performed By: #### L AB980 #### [facility] (DEFAULT) [address] [place] [address] Mean Cell Hgb Conc 33.4 g/dL Normal 31.4-35.9 [facility] Comment on above: Performed By: #### L [id number] #### [facility] (DEFAULT) [address] [place] [address] Monocytes (Bld) [#/Vol] 0.47 10*3/uL Normal 0.22-0.87 [facility] Comment on above: Performed By: #### L AB980 #### [facility] (DEFAULT) [address] [address] Monocytes/100 WBC (Bld) 6.6 % Normal [facility] Comment on above: Performed By: #### L AB980 #### [facility] (DEFAULT) [address] [place] [address] Nucleated RBC 0.0 /100 WBC Normal <=0.2 [facility] Comment on above: Performed By: #### L [id number] #### [facility] (DEFAULT) [address] [place] [address] Platelet mean volume (Bld) [Entitic vol] 10.0 fL Normal 8.5-12.2 [facility] Comment on above: Performed By: #### L [id number] #### [facility] (DEFAULT) [address] [place] [address] Platelets (Bld) [#/Vol] 172 10*3/uL Normal 150-393 [facility] Comment on above: Performed By: #### L AB980 #### [facility] (DEFAULT) [address] [place] [address] RBC (Bld) [#/Vol] 4.57 10*6/uL Normal 3.91-5.04 [facility] Comment on above: Performed By: #### L AB980 #### [facility] (DEFAULT) [address] [place] [address] RBC Distribution 13.3 % Normal 10.8-14.9 [facility] Comment on above: Performed By: #### L AB980 #### [facility] (DEFAULT) [address] [place] [address] Segs + Bands Auto 57.7 % Normal [facility] Comment on above: Performed By: #### L AB980 #### [facility] (DEFAULT) [address] [place] [address] Segs + Bands,Absolute Auto 4.07 K/uL Normal 1.64-7.28 [facility] Comment on above: Performed By: #### L [id number] #### [facility] (DEFAULT) [address] [place] [address] WBC (Bld) [#/Vol] 7.07 10*3/uL Normal 3.99-11.19 [facility] Comment on above: Performed By: #### L [id number] #### [facility] (DEFAULT) [address] [place] [address] Basophils (Bld) [#/Vol] K/uL 0.00 - 0.15 K/uL [facility] Basophils/100 WBC (Bld) 0.4 % [facility] Differential cell count method Nom (Bld) Electronic Differential [facility] Eosinophils (Bld) [#/Vol] 0.08 10*3/uL 0.00 - 0.42 K/uL [facility] Eosinophils/100 WBC (Bld) 1.1 % [facility] Erythrocyte distribution width (RBC) [Ratio] 13.3 % 10.8 - 14.9 % [facility] Hematocrit (Bld) [Volume fraction] 42.8 % 34.9 - 44.3 % [facility] Hemoglobin (Bld) [Mass/Vol] 14.3 g/dL 11.4 - 15.2 g/dL [facility] Immature granulocytes (Bld) [#/Vol] K/uL NINF - 0.08 K/uL [facility] Immature granulocytes/100 WBC (Bld) 0.3 % [facility] Lymphocytes (Bld) [#/Vol] 2.40 10*3/uL 1.16 - 3.51 K/uL [facility] Lymphocytes/100 WBC (Bld) 33.9 % [facility] MCH (RBC) [Entitic mass] 31.3 pg 25.9 - 33.[address] [facility] MCHC (RBC) [Mass/Vol] 33.4 g/dL 31.4 - 35.9 g/dL [facility] MCV (RBC) [Entitic vol] 93.7 fL 79.6 - 97.[address] [facility] Monocytes (Bld) [#/Vol] 0.47 10*3/uL 0.22 - 0.87 K/uL [facility] Monocytes/100 WBC (Bld) 6.6 % [facility] Neutrophils (Bld) [#/Vol] 4.07 10*3/uL 1.64 - 7.28 K/uL [facility] Nucleated RBC/100 WBC (Bld) [Ratio] 0.0 % BANNERF [facility] Platelet mean volume (Bld) [Entitic vol] 10.0 fL 8.5 - 12.[address] [facility] Platelets (Bld) [#/Vol] 172 10*3/uL 150 - 393 K/uL [facility] RBC (Bld) [#/Vol] 4.57 10*6/uL [facility] Segmented neutrophils/100 WBC (Bld) 57.7 % [facility] WBC (Bld) [#/Vol] 7.07 10*3/uL 3.99 - 11.19 K/uL [facility] CHM 7 - EDon 09-20-2022 Anion gap [Moles/Vol] 12 mmol/L Normal - [facility] Comment on above: Performed By: #### H CARLY, C7ED #### [facility] (DEFAULT) [address] [place] [address] Chloride [Moles/Vol] 108 mmol/L Normal 98-108 [facility] Comment on above: Performed By: #### H CARLY, C7ED #### [facility] (DEFAULT) [address] [place] [address] CO2 [Moles/Vol] 20 mmol/L Low 21-31 [facility] Comment on above: Performed By: #### H CARLY, C7ED #### [facility] (DEFAULT) [address] [place] [address] Creatinine [Mass/Vol] 0.80 mg/dL Normal 0.50-1.20 [facility] Comment on above: Performed By: #### H CARLY, C7ED #### [facility] (DEFAULT) [address] [place] [address] GFR/1.73 sq M.predicted among non-blacks MDRD (S/P/Bld) [Vol rate/Area] 89 mL/min/{1.73_m2} Normal >=60 [facility] Comment on above: Result Comment: Repo rted eGFR is based on the CKD-EPI 2020 equation using creatinine, age, and sex. Performed By: #### H CARLY, C7ED #### [facility] (DEFAULT) [address] [place] [address] Glucose [Mass/Vol] 194 mg/dL High 70-99 [facility] Comment on above: Performed By: #### H CARLY, C7ED #### [facility] (DEFAULT) [address] [place] [address] Osmolality [Osmolality] 294 mosm/kg Normal 278-305 [facility] Comment on above: Performed By: #### H CARLY, C7ED #### [facility] (DEFAULT) [address] [place] [address] Potassium [Moles/Vol] 3.9 mmol/L Normal 3.5-5.0 [facility] Comment on above: Performed By: #### H CARLY, C7ED #### [facility] (DEFAULT) [address] [place] [address] Sodium [Moles/Vol] 136 mmol/L Normal 135-145 [facility] Comment on above: Performed By: #### Tip CARROLL, C7ED #### [facility] (DEFAULT) [address] [place] [address] Urea nitrogen [Mass/Vol] 20 mg/dL Normal 7-25 [facility] Comment on above: Performed By: #### Tip CARROLL, C7ED #### [facility] (DEFAULT) [address] [place] [address] Urea nitrogen/Creatinine [Mass ratio] 25 mg/mg Normal [facility] Comment on above: Performed By: #### Tip CARROLL, C7ED #### [facility] (DEFAULT) [address] [place] [address] Anion gap [Moles/Vol] 12 mmol/L 7 - 17 mmol/L [facility] Chloride [Moles/Vol] 108 mmol/L 98 - 10 8 mmol/L [facility] CO2 [Moles/Vol] 20 mmol/L Low 21 - 31 mmol/L [facility] Creatinine [Mass/Vol] 0.80 mg/dL 0.50 - 1.20 mg/dL [facility] GFR/1.73 sq M.predicted CKD-EPI (S/P/Bld) [Vol rate/Area] 89 - PINF [facility] Comment on above: Reported eGFR is bas ed on the CKD-EPI 2020 equation using creatinine, age, and sex. Glucose [Mass/Vol] 194 mg/dL High 70 - 99 mg[facility] Interpretation and review of [facility] results [facility]normal [facility] Osmolality Calc [Osmolality] 294 [facility] Potassium [Moles/Vol] 3.9 mmol/L 3.5 - 5.0 mmol/L [facility] Sodium [Moles/Vol] 136 mmol/L 135 - 145 mmol/L [facility] Urea nitrogen [Mass/Vol] 20 mg/dL 7 - 25 mg/dL [facility] Urea nitrogen/Creatinine [Mass ratio] 25 mg[facility] CT CHEST WITH [...] have reviewed and approved this report. Normal [facility] CT Chest W contrast Esthela IMPRESSION: No [...] I have reviewed and approved this report. [facility] Radiology Study observation (narrative) [facility] CT Chest W contrast Monie d By: Brady Morgan on 09-20-[address] [facility] Work Phone: HCG ( test) Qlon HCG.beta subunit [Moles/Vol] 7.8 mmol/L mIU/mL [facility] [facility] Comment on above: Non-: <10 mI U/mL Postmenopause: <10 mIU/mL Male: <10 mIU/mL FEMALE GESTATIONAL AGE 2-4 Weeks: 39.1-8,388 mIU/mL 5-6 Weeks: 861-88,769 mIU/mL 6-8 Weeks: 8,636-218,085 mIU/mL 8-10 Weeks: 18,700-244,467 mIU/mL 10-12 Weeks: 23,143-181,899 mIU/mL 13-27 Weeks: 6,303-97,171 mIU/mL 24-40 Weeks: 4,360-74,883 mIU/mL Test results cannot be interpreted as absolute evidence for the presence or absence of malignant disease. [facility] HEPATIC FUNCTION PANELon Albumin [Mass/Vol] 4.5 g/dL Normal 3.5-5.0 [facility] Comment on above: Performed By: #### H CARLY C7ED #### [facility] (DEFAULT) [address] [place] [address]341 ALP [Catalytic activity/Vol] 92 U/L Normal 32-126 [facility] Comment on above: Performed By: #### Christiana GARCIAED #### [facility] (DEFAULT) [address] [address] ALT [Catalytic activity/Vol] 9 U/L Normal 9-48 [facility] Comment on above: Performed By: #### Christiana GARCIAED #### [facility] (DEFAULT) [address] [address] AST [Catalytic activity/Vol] 12 U/L Normal 10-39 [facility] Comment on above: Performed By: #### H CARLY, C7ED #### [facility] (DEFAULT) [address] [place] [address]15 Bilirubin [Mass/Vol] 0.6 mg/dL Normal <1.5 [facility] Comment on above: Performed By: #### Tip CARROLL, C7ED #### [facility] (DEFAULT) [address] [place] [address] Bilirubin.indirect [Mass/Vol] 0.1 mg/dL Normal <0.3 [facility] Comment on above: Performed By: #### Tip CARROLL, C7ED #### [facility] (DEFAULT) [address] [place] [address]23 Protein [Mass/Vol] 7.2 g/dL Normal 6.4-8.3 [facility] Comment on above: Performed By: #### Tip CARROLL, C7ED #### [facility] (DEFAULT) [address] [place] [address] 6[address]24 Albumin [Mass/Vol] 4.5 g/dL 3.5 - 5.0 g/dL [facility] ALP [Catalytic activity/Vol] 92 U/L 32 - 126 U/L [facility] ALT [Catalytic activity/Vol] 9 U/L 9 - 48 U/L [facility] AST [Catalytic activity/Vol] 12 U/L 10 - 39 U/L [facility] Bilirubin [Mass/Vol] 0.6 mg/dL NINF - 1.5 mg/dL [facility] Bilirubin.direct [Mass/Vol] 0.1 mg/dL NINF - 0.3 mg/dL [facility] Interpretation and review of laboratory results Normal [facility] Protein [Mass/Vol] 7.2 g/dL 6.4 - 8.3 g/dL [facility] LACTATE, INITIALon 3 0 Hour Lacate 1.3 mmol/L Normal 0.5-1.6 [facility] Comment on above: Performed By: #### L ABLACTINT #### [facility] (DEFAULT) [address] [place] [address] Interpretation and review of laboratory results Normal [facility] Lactate [Moles/Vol] 1.3 mmol/L 0.5 - 1. 6 mmol/L [facility] No Panel Informationon 09-20 [facility] XR CHEST PA AND LATERALon XR [...] have reviewed and approved this report. Normal [facility] XR Chest PA and Lateralon IMPRESSION: No [...] I have reviewed and approved this report. [facility] Radiology Study observation (narrative) [facility] XR Chest PA and LateralOrder ed By: Aidan Kent on 09-20-[address] [facility] Work Phone: Absolute lymphocyte countOrd ered By: Dr. Alvarez on 09-02-2022 Lymphocytes Auto (Unsp spec) [#/Vol] 1.57 10*3/uL 0.83-4.51 [facility] Basophil percentageOrdered B y: Dr. Alvarez on 09-02-2022 Basophils/100 WBC (Bld) 0.7 % 0-1 [facility] Chloride [Moles/Vol] 107 mmol/L 98-107 [facility] Eosinophils/100 WBC (Bld) 1.8 % 0-5 [facility] Glucose [Mass/Vol] 225 mg/dL 74-106 [facility] Comment on above: Glucose result great er than or equal to 200 mg/dLsuggests DIABETES MELLITUS per A.D.A. criteria. Neutrophils (Bld) [#/Vol] 4.0 10*3/uL 2.0-7.7 [facility] Neutrophils/100 WBC (Bld) 65.9 % 47-70 [facility] Potassium [Moles/Vol] 4.6 mmol/L 3.5-5.1 [facility] Sodium [Moles/Vol] 138 mmol/L 136-145 [facility] WBC (Bld) [#/Vol] 6.1 10*3/uL 4.4-11.0 [facility] Blood erythrocytes count (nu mber/volume)Ordered By: Dr. Alvarez on 09-02-2022 RBC (Bld) [#/Vol] 4.39 10*6/uL 4.2-5.[address] [facility] Blood hemoglobin measurement (mass/volume)Ordered By: Dr. Alvarez on 09-02-2022 Hemoglobin (Bld) [Mass/Vol] 13.8 g/dL 12.0-15.0 [facility] Blood lymphocytes/100 leukoc ytesOrdered By: Dr. Alvarez on 09-02-2022 Lymphocytes/100 WBC (Bld) 25.7 % 19-41 [facility] Blood monocytes/100 leukocyt esOrdered By: Dr. Alvarez on 09-02-2022 Monocytes/100 WBC (Bld) 5.6 % 0-10 [facility] Blood platelet mean volumeOr dered By: Dr. Alvarez on 09-02-2022 Platelet mean volume (Bld) [Entitic vol] 9.7 fL 6.2-12.0 [facility] Determination of erythrocyte mean corpuscular volume (MCV)Ordered By: Dr. Alvarez on 09-02-2022 MCV (RBC) [Entitic vol] 95.4 fL 81-99 [facility] Hematocrit Auto (Bld) [Volum e fraction]Ordered By: Dr. Alvarez on 09-02-2022 Hematocrit (Bld) [Volume fraction] 41.9 % 37-47 [facility] Laboratory - Chemistry and C hemistry - challengeOrdered By: Dr. Alvarez on 09-02-2022 CO2 [Moles/Vol] 22.0 mmol/L 21.0-32.0 [facility] Urea nitrogen/Creatinine [Mass ratio] 29.3 mg/mg 10-20 [facility] Laboratory - Hematology and Cell countsOrdered By: Dr. Alvarez on 09-02-2022 Erythrocyte distribution width (RBC) [Entitic vol] 46.3 fL 35.1-43.9 [facility] Erythrocyte distribution width (RBC) [Ratio] 13.2 % 11.6-14.6 [facility] Immature granulocytes/100 WBC (Bld) 0.300 % 0.0-0.9 [facility] Comment on above: IG% - Immature Granu locytes (promyelocytes, myelocytes and metamyelocytes) > 1% indicates that a LEFT SHIFT is Present. MCH (RBC) [Entitic mass] 31.4 pg 27.0-32.0 [facility] Nucleated RBC/100 WBC (Bld) [Ratio] 0 % 0-5 [facility] MCHC Auto (RBC) [Mass/Vol]Or dered By: Dr. Alvarez on 09-02-2022 MCHC (RBC) [Mass/Vol] 32.9 g/dL 32-36 [facility] No Panel InformationOrdered By: Dr. Alvarez on 09-02-2022 Estimated Creatinine Clearance Calc 57.40 ml/min [facility] Estimated GFR (MDRD) Amer 76 mL/min >60 [facility] Comment on above: GFR Calc Estimated GFR (MDRD) Non-Af Amer 62 mL/min >60 [facility] Comment on above: Non- GFR Calc Platelets bldOrdered By: Dr. Alvarez on 09-02-2022 Platelets (Bld) [#/Vol] 187 10*3/uL 150-450 [facility] Serum or plasma calcium oliver urement (mass/volume)Ordered By: Dr. Alvarez on 09-02-2022 Calcium [Mass/Vol] 9.6 mg/dL 8.5-10.1 [facility] Serum or plasma creatinine m easurement (mass/volume)Ordered By: Dr. Alvarez on 09-02-2022 Creatinine [Mass/Vol] 0.99 mg/dL 0.55-1.02 [facility] Comment on above: The validity of the calculated GFR & GFRAA in patients over 70 years has not been determined. Clinical correlation is essential. Serum or plasma urea nitroge n measurement (mass/volume)Ordered By: Dr. Alvarez on 09-02-2022 Urea nitrogen [Mass/Vol] 29 mg/dL 7-18 [facility] Thin prep Papanicolaou smear with manual screeningOrdered By: Dr. Alvarez on 09-02-2022 Thin prep Papanicolaou smear with manual screening 9 5-15 [facility] CBC AND ELECTRONIC DIFFon Abs Baso Auto < Normal 0.00-0.15 [facility] Comment on above: Performed By: #### P TPTT #### [facility] (DEFAULT) [address] [place] [address] Basophils/100 WBC (Bld) 0.6 % Normal [facility] Comment on above: Performed By: #### P TPTT #### [facility] (DEFAULT) [address] [place] [address]278 DIFF STATUS Electronic Differential Normal [facility] Comment on above: Performed By: #### P TPTT #### [facility] (DEFAULT) [address] [place] [address]291 Eosinophils (Bld) [#/Vol] 0.08 10*3/uL Normal 0.00-0.42 [facility] Comment on above: Performed By: #### P TPTT #### [facility] (DEFAULT) [address] [address] Eosinophils/100 WBC (Bld) 1.7 % Normal [facility] Comment on above: Performed By: #### P TPTT #### [facility] (DEFAULT) [address] [address] Hematocrit (Bld) [Volume fraction] 40.0 % Normal 34.9-44.3 [facility] Comment on above: Performed By: #### P TPTT #### [facility] (DEFAULT) [address] [address] Hemoglobin (Bld) [Mass/Vol] 13.1 g/dL Normal 11.4-15.2 [facility] Comment on above: Performed By: #### P TPTT #### [facility] (DEFAULT) [address] [address] Immature Grans % 0.2 % Normal [facility] Comment on above: Performed By: #### P TPTT #### [facility] (DEFAULT) [address] [place] [address] Immature Grans Absolute < Normal <=0.08 [facility] Comment on above: Performed By: #### P TPTT #### [facility] (DEFAULT) [address] [place] [address] Lymphocytes (Bld) [#/Vol] 1.88 10*3/uL Normal 1.16-3.51 [facility] Comment on above: Performed By: #### P TPTT #### [facility] (DEFAULT) [address] [place] [address] Lymphocytes/100 WBC (Bld) 38.9 % Normal [facility] Comment on above: Performed By: #### P TPTT #### [facility] (DEFAULT) [address] [place] [address] MCV (RBC) [Entitic vol] 95.0 fL Normal 79.6-97.7 [facility] Comment on above: Performed By: #### P TPTT #### [facility] (DEFAULT) [address] [address] Mean Cell Hgb 31.1 pg Normal 25.9-33.9 [facility] Comment on above: Performed By: #### P TPTT #### [facility] (DEFAULT) [address] [address] Mean Cell Hgb Conc 32.8 g/dL Normal 31.4-35.9 [facility] Comment on above: Performed By: #### P TPTT #### [facility] (DEFAULT) [address] [place] [address] Monocytes (Bld) [#/Vol] 0.30 10*3/uL Normal 0.22-0.87 [facility] Comment on above: Performed By: #### P TPTT #### [facility] (DEFAULT) [address] [address] Monocytes/100 WBC (Bld) 6.2 % Normal [facility] Comment on above: Performed By: #### P TPTT #### [facility] (DEFAULT) [address] [place] [address]85 Nucleated RBC 0.0 /100 WBC Normal <=0.2 [facility] Comment on above: Performed By: #### P TPTT #### [facility] (DEFAULT) [address] [place] [address] Platelet mean volume (Bld) [Entitic vol] 9.9 fL Normal 8.5-12.2 [facility] Comment on above: Performed By: #### P TPTT #### [facility] (DEFAULT) [address] [place] [address] Platelets (Bld) [#/Vol] 213 10*3/uL Normal 150-393 [facility] Comment on above: Performed By: #### P TPTT #### [facility] (DEFAULT) [address] [place] [address] RBC (Bld) [#/Vol] 4.21 10*6/uL Normal 3.91-5.04 [facility] Comment on above: Performed By: #### P TPTT #### [facility] (DEFAULT) [address] [place] [address]20 RBC Distribution 13.2 % Normal 10.8-14.9 [facility] Comment on above: Performed By: #### P TPTT #### [facility] (DEFAULT) [address] [place] [address] 16925 Segs + Bands Auto 52.4 % Normal [facility] Comment on above: Performed By: #### P TPTT #### [facility] (DEFAULT) [address] [place] [address] Segs + Bands,Absolute Auto 2.53 K/uL Normal 1.64-7.28 [facility] Comment on above: Performed By: #### P TPTT #### [facility] (DEFAULT) [address] [place] [address] WBC (Bld) [#/Vol] 4.83 10*3/uL Normal 3.99-11.19 [facility] Comment on above: Performed By: #### P TPTT #### [facility] (DEFAULT) [address] [place] [address] Basophils (Bld) [#/Vol] K/uL 0.00 - 0.15 K/uL [facility] Basophils/100 WBC (Bld) 0.6 % [facility] Differential cell count method Nom (Bld) Electronic Differential [facility] Eosinophils (Bld) [#/Vol] 0.08 10*3/uL 0.00 - 0.42 K/uL [facility] Eosinophils/100 WBC (Bld) 1.7 % [facility] Erythrocyte distribution width (RBC) [Ratio] 13.2 % 10.8 - 14.9 % [facility] Hematocrit (Bld) [Volume fraction] 40.0 % 34.9 - 44.3 % [facility] Hemoglobin (Bld) [Mass/Vol] 13.1 g/dL 11.4 - 15.2 g/dL [facility] Immature granulocytes (Bld) [#/Vol] K/uL NINF - 0.08 K/uL [facility] Immature granulocytes/100 WBC (Bld) 0.2 % [facility] Lymphocytes (Bld) [#/Vol] 1.88 10*3/uL 1.16 - 3.51 K/uL [facility] Lymphocytes/100 WBC (Bld) 38.9 % [facility] MCH (RBC) [Entitic mass] 31.1 pg 25.9 - 33.[address] [facility] MCHC (RBC) [Mass/Vol] 32.8 g/dL 31.4 - 35.9 g/dL [facility] MCV (RBC) [Entitic vol] 95.0 fL 79.6 - 97.[address] [facility] Monocytes (Bld) [#/Vol] 0.30 10*3/uL 0.22 - 0.87 K/uL [facility] Monocytes/100 WBC (Bld) 6.2 % [facility] Neutrophils (Bld) [#/Vol] 2.53 10*3/uL 1.64 - 7.28 K/uL [facility] Nucleated RBC/100 WBC (Bld) [Ratio] 0.0 % NINF [facility] Platelet mean volume (Bld) [Entitic vol] 9.9 fL 8.5 - 12.[address] [facility] Platelets (Bld) [#/Vol] 213 10*3/uL 150 - 393 K/uL [facility] RBC (Bld) [#/Vol] 4.21 10*6/uL [facility] Segmented neutrophils/100 WBC (Bld) 52.4 % [facility] WBC (Bld) [#/Vol] 4.83 10*3/uL 3.99 - 11.19 K/uL [facility] CHEM 7 (LYTES,BUN,CREA,GLUC) on 08-18-2022 Anion gap [Moles/Vol] 13 mmol/L Normal 7-17 [facility] Comment on above: Performed By: #### C HM7 #### [facility] (DEFAULT) [address] [address] Chloride [Moles/Vol] 112 mmol/L High 98-108 [facility] Comment on above: Performed By: #### C HM7 #### [facility] (DEFAULT) [address] [place] [address] CO2 [Moles/Vol] 19 mmol/L Low 21-31 [facility] Comment on above: Performed By: #### C HM7 #### [facility] (DEFAULT) [address] [place] [address] Creatinine [Mass/Vol] 0.85 mg/dL Normal 0.50-1.20 [facility] Comment on above: Performed By: #### C HM7 #### [facility] (DEFAULT) [address] [place] [address] GFR/1.73 sq M.predicted among non-blacks MDRD (S/P/Bld) [Vol rate/Area] 82 mL/min/{1.73_m2} Normal >=60 [facility] Comment on above: Result Comment: Repo rted eGFR is based on the CKD-EPI 2020 equation using creatinine, age, and sex. Performed By: #### C HM7 #### [facility] (DEFAULT) [address] [place] [address] Glucose [Mass/Vol] 201 mg/dL High 70-99 [facility] Comment on above: Performed By: #### C HM7 #### [facility] (DEFAULT) [address] [place] [address] Osmolality [Osmolality] 305 mosm/kg Normal 278-305 [facility] Comment on above: Performed By: #### C HM7 #### [facility] (DEFAULT) [address] [place] [address] Potassium [Moles/Vol] 4.0 mmol/L Normal 3.5-5.0 [facility] Comment on above: Performed By: #### C HM7 #### [facility] (DEFAULT) [address] [place] [address] Sodium [Moles/Vol] 140 mmol/L Normal 135-145 [facility] Comment on above: Performed By: #### C HM7 #### [facility] (DEFAULT) [address] [place] [address] Urea nitrogen [Mass/Vol] 29 mg/dL High 7-25 [facility] Comment on above: Performed By: #### C HM7 #### [facility] (DEFAULT) [address] [place] [address] Urea nitrogen/Creatinine [Mass ratio] 34 mg/mg Normal [facility] Comment on above: Performed By: #### C HM7 #### [facility] (DEFAULT) [address] [place] [address] Anion gap [Moles/Vol] 13 mmol/L 7 - 17 [facility] Chloride [Moles/Vol] 112 mmol/L High 98 - 10 8 mmol/[facility] CO2 [Moles/Vol] 19 mmol/L Low 21 - 31 mmol/[facility] Creatinine [Mass/Vol] 0.85 mg/dL 0.50 - 1.20 mg/dL [facility] GFR/1.73 sq M.predicted CKD-EPI (S/P/Bld) [Vol rate/Area] 82 - PINF [facility] Comment on above: Reported eGFR is bas ed on the CKD-EPI 2020 equation using creatinine, age, and sex. Glucose [Mass/Vol] 201 mg/dL High 70 - 99 mg/dL [facility] Interpretation and review of laboratory results Abnormal [facility] Osmolality Calc [Osmolality] 305 [facility] Potassium [Moles/Vol] 4.0 mmol/L 3.5 - 5.0 mmol/L [facility] Sodium [Moles/Vol] 140 mmol/L 135 - 145 mmol/L [facility] Urea nitrogen [Mass/Vol] 29 mg/dL High 7 - 25 mg/dL [facility] Urea nitrogen/Creatinine [Mass ratio] 34 mg/mg [facility] EP PROCEDURE - EPS/ABLATION/ DEVICEon 08-18-2022 EP PROCEDURE - EPS/ABLATION/DEVICE Pt with an irreversible nonischemic cardiomyopathy, NYHA Class III and LVEF of 30% despite medical therapy and underwent successful BiV ICD via left axillary vein for primary prevention. Baseline LBBB. There were excellent lead parameters. IV Vancomycin is utilized because: Physician/YEAST FERMENTATION ATTENDANT/PA or pharmacist documentation of increased MRSA rate, either facility-wide or operation-specific PLAN: Leave the aquacel dressing on (unless it becomes soiled to the outward edges) for 7 days, then remove and leave site uncovered Device follow up as scheduled with [facility] Discharge today assuming post procedure CXR and device testing are normal No follow up in EP clinic Follow up only in Device clinic Please contact Device team for education/teaching prior to discharge from [facility] Table formatting from the original result was not included. Pito Hendrix EP Procedure - EPS/Ablation/Device Ordering Physician: SERAFIN PADRON Order #: [id number] Study Date: 08/18/2022 Patient Information Name MRN Description Pito Hendrix [id number] 51 y.o. female Physicians Panel Physicians Referring [...] lead parameters. IV Vancomycin is utilized because: Physician/YEAST FERMENTATION ATTENDANT/PA or pharmacist documentation of increased MRSA rate, [...] team for education/teaching prior to discharge from [facility] Consent The procedure was explained including [...] accessed using a single axillary vein stick (Intucelldinger). A new lead was placed into the [...] I] Estimated Blood Loss: 20 ml Insertable Fare Collector Sutured the right ventricular lead. Suture used: two 2-0 Nurolon Sutured the atrial lead. Suture used: two 2-0 Nurolon Sutured the generator. Suture used: single 2-0 Nurolon Venogram A venogram was performed on the left subclavian. Injected with hand injection. Venogram performed via IV. Injected volume = 10 mL. Implants ICD Defibrillator Cardiac .9 (more content not included)... Normal [facility] Electrophysiology studyon Body surface area Derived from formula 2.03 m2 [facility] Pt with an irreversi ble nonischemic cardiomyopathy, NYHA Class III and LVEF of 30% despite medical therapy and underwent successful BiV ICD via left axillary vein for primary prevention. Baseline LBBB. There were excellent lead parameters. IV Vancomycin is utilized because: Physician/YEAST FERMENTATION ATTENDANT/PA or pharmacist documentation of increased MRSA rate, [...] for education/teaching prior to discharge from [facility] Radiology Study observation (narrative) [facility] GLUCOSE POCon 08-18-2022 Glucose [Mass/Vol] 91 mg/dL 70 - 99 mg/dL [facility] POC Sample Type CAPBL [facility] Test performed at ad dress of the patient encounter. [facility] Glucose [Mass/Vol] 211 mg/dL High 70 - 99 mg/dL [facility] Interpretation and review of laboratory results Abnormal [facility] POC Sample Type VENO [facility] Test performed at ad dress of the patient encounter. [facility] PT,INR,PTTon 08-18-2022 aPTT Coag (Bld) [Time] 25.9 s Normal 24.0-34.3 [facility] Comment on above: Performed By: #### P TPTT #### [facility] (DEFAULT) [address] [place] [address] INR Coag (PPP) [Relative time] 1.0 {INR} Normal 0.9-1.1 [facility] Comment on above: Performed By: #### P TPTT #### [facility] (DEFAULT) [address] [place] [address] PT Coag (PPP) [Time] 13.4 s Normal 11.9-14.2 [facility] Comment on above: Performed By: #### P TPTT #### [facility] (DEFAULT) [address] [place] [address] aPTT Coag (PPP) [Time] 25.[address] [facility] INR Coag (Bld) [Relative time] 1.0 {INR} 0.9 - 1.[address] [facility] Interpretation and review of laboratory results Normal [facility] PT Coag (PPP) [Time] 13.4 s [facility] XR CHEST PA AND LATERALon XR [...] of left subclavian approach biventricular ICD. Normal [facility] XR Chest PA and Lateralon IMPRESSION: No [...] Chest Wall: Normal RADIOLOGY Shanae Jett [facility] - 08/18/2022 EXAM: XR CHEST PA AND LATERAL, 08/18/2022 15:33 PM COMPARISON: January 01, 2012 CLINICAL INDICATIONS: Rule out Pneumothorax Following Device Implantation RELEVANT CLINICAL HISTORY: Please complete this Xray within 1 hour from the completion of the procedure. Please read as a stat wet read. Please page the on-call EP fellow at [phone] with any emergent finding such as pneumothorax.; [...] placement of left subclavian approach biventricular ICD. [facility] Radiology Study observation (narrative) [facility] XR Chest PA and LateralOrder ed By: Shanae Jett on 08-18-[address] [facility] Work Phone: Absolute lymphocyte countOrd ered By: Dr. Nguyen on 08-07-2022 Lymphocytes Auto (Unsp spec) [#/Vol] 2.12 10*3/uL 0.83-4.51 [facility] Basophil percentageOrdered B y: Dr. Nguyen on 08-07-2022 Basophils/100 WBC (Bld) 0.2 % 0-1 [facility] Chloride [Moles/Vol] 111 mmol/L 98-[facility] Cholesterol [Mass/Vol] 141 mg/dL <200 [facility] Comment on above: <200 mg/dL Desirable 200-240 mg/dL Borderline >240 mg/dL High Risk Eosinophils/100 WBC (Bld) 2.1 % 0-5 [facility] Glucose [Mass/Vol] 196 mg/dL 74-106 [facility] Comment on above: Fasting Glucose resu lt greater than or equal to 126 mg/dL suggests DIABETES MELLITUS per A.D.A. criteria. Neutrophils (Bld) [#/Vol] 2.6 10*3/uL 2.0-7.7 [facility] Neutrophils/100 WBC (Bld) 49.3 % 47-70 [facility] Potassium [Moles/Vol] 3.5 mmol/L 3.5-5.1 [facility] Sodium [Moles/Vol] 140 mmol/L 136-145 [facility] Triglyceride [Mass/Vol] 97 mg/dL <199 [facility] Comment on above: The drugs N-Acetylcy steine and Metamizole may falsely depress this assay.Serum Triglycerides Reference Interval Normal <150 mg/dL Borderline high 150 - 199 mg/dL High 200 - 499 mg/dL Very High > or = 500 mg/dL WBC (Bld) [#/Vol] 5.2 10*3/uL 4.4-11.0 [facility] Blood erythrocytes count (nu mber/volume)Ordered By: Dr. Nguyen on 08-07-2022 RBC (Bld) [#/Vol] 4.08 10*6/uL 4.2-5.[address] [facility] Blood hemoglobin measurement (mass/volume)Ordered By: Dr. Nguyen on 08-07-2022 Hemoglobin (Bld) [Mass/Vol] 12.9 g/dL 12.0-15.0 [facility] Blood lymphocytes/100 leukoc ytesOrdered By: Dr. Nguyen on 08-07-2022 Lymphocytes/100 WBC (Bld) 41.0 % 19-41 [facility] Blood monocytes/100 leukocyt esOrdered By: Dr. Nguyen on 08-07-2022 Monocytes/100 WBC (Bld) 7.2 % 0-10 [facility] Blood platelet mean volumeOr dered By: Dr. Nguyen on 08-07-2022 Platelet mean volume (Bld) [Entitic vol] 10.3 fL 6.2-12.0 [facility] Determination of erythrocyte mean corpuscular volume (MCV)Ordered By: Dr. Nguyen on 08-07-2022 MCV (RBC) [Entitic vol] 94.6 fL 81-99 [facility] Glucose Glucometer (BldC) [M ass/Vol]Ordered By: Dr. Mathew on 08-07-2022 Glucose [Mass/Vol] 171 mg/dL 74-106 [facility] Comment on above: MANAGEMENT OF PATIEN T CARE PER NURSING PROTOCOL Glucose [Mass/Vol] 212 mg/dL 74-106 [facility] Comment on above: MANAGEMENT OF PATIEN T CARE PER NURSING PROTOCOL Hematocrit Auto (Bld) [Volum e fraction]Ordered By: Dr. Nguyen on 08-07-2022 Hematocrit (Bld) [Volume fraction] 38.6 % 37-47 [facility] Laboratory - Chemistry and C hemistry - challengeOrdered By: Dr. Nguyen on 08-07-2022 CO2 [Moles/Vol] 21.0 mmol/L 21.0-32.0 [facility] Urea nitrogen/Creatinine [Mass ratio] 32.2 mg/mg 10-20 [facility] Laboratory - Hematology and Cell countsOrdered By: Dr. Nguyen on 08-07-2022 Erythrocyte distribution width (RBC) [Entitic vol] 45.5 fL 35.1-43.9 [facility] Erythrocyte distribution width (RBC) [Ratio] 13.2 % 11.6-14.6 [facility] Immature granulocytes/100 WBC (Bld) 0.200 % 0.0-0.9 [facility] Comment on above: IG% - Immature Granu locytes (promyelocytes, myelocytes and metamyelocytes) > 1% indicates that a LEFT SHIFT is Present. MCH (RBC) [Entitic mass] 31.6 pg 27.0-32.0 [facility] Nucleated RBC/100 WBC (Bld) [Ratio] 0 % 0-5 [facility] MCHC Auto (RBC) [Mass/Vol]Or dered By: Dr. Nguyen on 08-07-2022 MCHC (RBC) [Mass/Vol] 33.4 g/dL 32-36 [facility] No Panel InformationOrdered By: Dr. Nguyen on 08-07-2022 Estimated Creatinine Clearance Calc 65.32 ml/min [facility] Estimated GFR (MDRD) Amer 88 mL/min >60 [facility] Comment on above: GFR Calc Estimated GFR (MDRD) Non-Af Amer 73 mL/min >60 [facility] Comment on above: Non- GFR Calc Troponin I High Sensitivity 8 pg/mL 3.0-54.0 [facility] Comment on above: Please Note: [place] Units and Gender Specific Reference Ranges. For more information see Policy Stat Procedure [place] High Sensitivity Troponin (TNIH) and attachments. Platelets bldOrdered By: Dr. Nguyen on 08-07-2022 Platelets (Bld) [#/Vol] 178 10*3/uL 150-450 [facility] Serum or plasma calcium oliver urement (mass/volume)Ordered By: Dr. Nguyen on 08-07-2022 Calcium [Mass/Vol] 8.9 mg/dL 8.5-10.1 [facility] Serum or plasma cholesterol in HDL measurement (mass/volume)Ordered By: Dr. Nguyen on 08-07-2022 Cholesterol in HDL [Mass/Vol] 51 mg/dL >40 [facility] Comment on above: The drugs N-Acetylcy steine and Metamizole may falsely depress this assay. Reference Range HDL <40 mg/dL Low HDL Cholesterol HDL >or= 60 mg/dL High HDL Cholesterol Serum or plasma cholesterol in VLDL measurement (mass/volume)Ordered By: Dr. Nguyen on 08-07-2022 Cholesterol in VLDL [Mass/Vol] 19 mg/dL 5-40 [facility] Serum or plasma creatinine m easurement (mass/volume)Ordered By: Dr. Nguyen on 08-07-2022 Creatinine [Mass/Vol] 0.87 mg/dL 0.55-1.02 [facility] Comment on above: The validity of the calculated GFR & GFRAA in patients over 70 years has not been determined. Clinical correlation is essential. Serum or plasma low density lipoprotein (LDL) cholesterol measurement (mass/volume)Ordered By: Dr. Nguyen on 08-07-2022 Cholesterol in LDL [Mass/Vol] 71 mg/dL 0-130 [facility] Serum or plasma urea nitroge n measurement (mass/volume)Ordered By: Dr. Nguyen on 08-07-2022 Urea nitrogen [Mass/Vol] 28 mg/dL 7-18 [facility] Thin prep Papanicolaou smear with manual screeningOrdered By: Dr. Nguyen on 08-07-2022 Thin prep Papanicolaou smear with manual screening 8 5-15 [facility] Absolute lymphocyte countOrd ered By: Lolis Todd on 08-06-2022 Lymphocytes Auto (Unsp spec) [#/Vol] 2.24 10*3/uL 0.83-4.51 [facility] Basophil percentageOrdered B y: Lolis Todd on 08-06-2022 Basophils/100 WBC (Bld) 0.3 % 0-1 [facility] Chloride [Moles/Vol] 109 mmol/L 98-107 [facility] Eosinophils/100 WBC (Bld) 2.0 % 0-5 [facility] Glucose [Mass/Vol] 244 mg/dL 74-106 [facility] Comment on above: Glucose result great er than or equal to 200 mg/dLsuggests DIABETES MELLITUS per A.D.A. criteria. Neutrophils (Bld) [#/Vol] 3.5 10*3/uL 2.0-7.7 [facility] Neutrophils/100 WBC (Bld) 55.6 % 47-70 [facility] Potassium [Moles/Vol] 4.0 mmol/L 3.5-5.1 [facility] Sodium [Moles/Vol] 138 mmol/L 136-145 [facility] WBC (Bld) [#/Vol] 6.4 10*3/uL 4.4-11.0 [facility] Blood erythrocytes count (nu mber/volume)Ordered By: Lolis Todd on 08-06-2022 RBC (Bld) [#/Vol] 4.26 10*6/uL 4.2-5.[address] [facility] Blood hemoglobin measurement (mass/volume)Ordered By: Lolis Todd on 08-06-2022 Hemoglobin (Bld) [Mass/Vol] 13.6 g/dL 12.0-15.0 [facility] Blood lymphocytes/100 leukoc ytesOrdered By: Lolis Todd on 08-06-2022 Lymphocytes/100 WBC (Bld) 35.2 % 19-41 [facility] Blood monocytes/100 leukocyt esOrdered By: Lolis Todd on 08-06-2022 Monocytes/100 WBC (Bld) 6.6 % 0-10 [facility] Blood platelet mean volumeOr dered By: Lolis Todd on 08-06-2022 Platelet mean volume (Bld) [Entitic vol] 10.2 fL 6.2-12.0 [facility] Determination of erythrocyte mean corpuscular volume (MCV)Ordered By: Lolis Todd on 08-06-2022 MCV (RBC) [Entitic vol] 96.7 fL 81-99 [facility] Hematocrit Auto (Bld) [Volum e fraction]Ordered By: Lolis Todd on 08-06-2022 Hematocrit (Bld) [Volume fraction] 41.2 % 37-47 [facility] Laboratory - Chemistry and C hemistry - challengeOrdered By: Lolis Todd on 08-06-2022 CO2 [Moles/Vol] 20.0 mmol/L 21.0-32.0 [facility] Urea nitrogen/Creatinine [Mass ratio] 28.9 mg/mg 10-20 [facility] Laboratory - Hematology and Cell countsOrdered By: Lolis Todd on 08-06-2022 Erythrocyte distribution width (RBC) [Entitic vol] 47.3 fL 35.1-43.9 [facility] Erythrocyte distribution width (RBC) [Ratio] 13.4 % 11.6-14.6 [facility] Immature granulocytes/100 WBC (Bld) 0.300 % 0.0-0.9 [facility] Comment on above: IG% - Immature Granu locytes (promyelocytes, myelocytes and metamyelocytes) > 1% indicates that a LEFT SHIFT is Present. MCH (RBC) [Entitic mass] 31.9 pg 27.0-32.0 [facility] Nucleated RBC/100 WBC (Bld) [Ratio] 0 % 0-5 [facility] Auto (RBC) [Mass/Vol]Or dered By: Lolis Todd on 08-06-2022 MCHC (RBC) [Mass/Vol] 33.0 g/dL 32-36 [facility] No Panel InformationOrdered By: Dr. Ortez on 08-06-2022 Troponin I High Sensitivity 7 pg/mL 3.0-54.0 [facility] Comment on above: Please Note: [place] Units and Gender Specific Reference Ranges. For more information see Policy Stat Procedure [place] High Sensitivity Troponin (TNIH) and attachments. No Panel InformationOrdered By: Lolis Todd on 08-06-2022 Estimated GFR (MDRD) Amer 85 mL/min >60 [facility] Comment on above: GFR Calc Estimated GFR (MDRD) Non-Af Amer 70 mL/min >60 [facility] Comment on above: Non- GFR Calc Platelets bldOrdered By: Umberto Todd on 08-06-2022 Platelets (Bld) [#/Vol] 198 10*3/uL 150-450 [facility] Serum or plasma calcium oliver urement (mass/volume)Ordered By: Lolis Todd on 08-06-2022 Calcium [Mass/Vol] 9.2 mg/dL 8.5-10.1 [facility] Serum or plasma creatinine m easurement (mass/volume)Ordered By: Lolis Todd on 08-06-2022 Creatinine [Mass/Vol] 0.90 mg/dL 0.55-1.02 [facility] Comment on above: The validity of the calculated GFR & GFRAA in patients over 70 years has not been determined. Clinical correlation is essential. Serum or plasma urea nitroge n measurement (mass/volume)Ordered By: Lolis Todd on 08-06-2022 Urea nitrogen [Mass/Vol] 26 mg/dL 7-18 [facility] Thin prep Papanicolaou smear with manual screeningOrdered By: Lolis Todd on 08-06-2022 Thin prep Papanicolaou smear with manual screening 9 5-15 [facility] Laboratory - Chemistry and C hemistry - challengeOrdered By: Mike Tom on 07-30-2022 Free T4 [Mass/Vol] 0.94 ng/dL 0.76-1.46 [facility] No Panel InformationOrdered By: Mike Tom on 07-30-2022 Free Triiodothyronine (T3) pg/dL 2.6 pg/mL 2.18-3.98 [facility] Thyroid Stimulating Hormone (TSH) 0.66 uIU/mL 0.358-3.74 [facility] Laboratory - Chemistry and C hemistry - challengeOrdered By: Mike Tom on 06-03-2022 Free T4 [Mass/Vol] 0.94 ng/dL 0.76-1.46 [facility] No Panel InformationOrdered By: Mike Tom on 06-03-2022 Free Triiodothyronine (T3) pg/dL 3.0 pg/mL 2.18-3.98 [facility] Thyroid Stimulating Hormone (TSH) 0.06 uIU/mL 0.358-3.74 [facility] Culture, urineOrdered By: Dr Francisco Baird on 05-27-2022 Bacteria identified Cx Nom (U) Presumptive E. coli [facility] Serum or plasma thyroperoxid ase antibody assay (units/volume)Ordered By: Dr. Hancock on 05-18-2022 TPO Ab Qn [IU]/mL 0-34 [facility] Comment on above: Performed at: [address] [id number] Director: Linn Tristan MD, Phone: [phone] at: [facility] [id number] Director: Vargas Kim PhD, Phone: [phone] Thyroid stimulating immunogl obulins detectionOrdered By: Dr. Hancock on 05-18-2022 Thyroid stimulating immunoglobulins Ql (S) <0.10 IU/L 0.00-0.55 [facility] Laboratory - Chemistry and C hemistry - challengeOrdered By: Mike Tom on 05-06-2022 Free T4 [Mass/Vol] 1.00 ng/dL 0.76-1.46 [facility] Laboratory - Hematology and Cell countson 05-06-2022 HbA1c (Bld) [Mass fraction] 8.7 % [facility] No Panel InformationOrdered By: Mike Tom on 05-06-2022 Free Triiodothyronine (T3) pg/dL 3.4 pg/mL 2.18-3.98 [facility] Thyroid Stimulating Hormone (TSH) 0.01 uIU/mL 0.358-3.74 [facility] Basophil percentageOrdered B y: Bryan Mitchell on 04-13-2022 Chloride [Moles/Vol] 109 mmol/L 98-107 [facility] Glucose [Mass/Vol] 218 mg/dL 74-106 [facility] Comment on above: Glucose result great er than or equal to 200 mg/dLsuggests DIABETES MELLITUS per A.D.A. criteria. Potassium [Moles/Vol] 3.9 mmol/L 3.5-5.1 [facility] Sodium [Moles/Vol] 140 mmol/L 136-145 [facility] Laboratory - Chemistry and C hemistry - challengeOrdered By: Bryan Mitchell on 04-13-2022 CO2 [Moles/Vol] 24.0 mmol/L 21.0-32.0 [facility] Natriuretic peptide B (Bld) [Mass/Vol] 87.5 pg/mL 0-100 [facility] Urea nitrogen/Creatinine [Mass ratio] 18.9 mg/mg 10-20 [facility] No Panel InformationOrdered By: Bryan Mitchell on 04-13-2022 Estimated GFR (MDRD) Amer 91 mL/min >60 [facility] Comment on above: GFR Calc Estimated GFR (MDRD) Non-Af Amer 75 mL/min >60 [facility] Comment on above: Non- GFR Calc Serum or plasma calcium oliver urement (mass/volume)Ordered By: Bryan Mitchell on 04-13-2022 Calcium [Mass/Vol] 8.8 mg/dL 8.5-10.1 [facility] Serum or plasma creatinine m easurement (mass/volume)Ordered By: Bryan Mitchell on 04-13-2022 Creatinine [Mass/Vol] 0.85 mg/dL 0.55-1.02 [facility] Comment on above: The validity of the calculated GFR & GFRAA in patients over 70 years has not been determined. Clinical correlation is essential. Serum or plasma urea nitroge n measurement (mass/volume)Ordered By: Bryan Mitchell on 04-13-2022 Urea nitrogen [Mass/Vol] 16 mg/dL 7-18 [facility] Thin prep Papanicolaou smear with manual screeningOrdered By: Bryan Mitchell on 04-13-2022 Thin prep Papanicolaou smear with manual screening 7 5-15 [facility] Absolute lymphocyte countOrd ered By: Dr. Ortez on 04-05-2022 Lymphocytes Auto (Unsp spec) [#/Vol] 2.06 10*3/uL 0.83-4.51 [facility] Basophil percentageOrdered B y: Dr. Ortez on 04-05-2022 Basophils/100 WBC (Bld) 0.3 % 0-1 [facility] Chloride [Moles/Vol] 112 mmol/L 98-107 [facility] Eosinophils/100 WBC (Bld) 0.6 % 0-5 [facility] Glucose [Mass/Vol] 256 mg/dL 74-106 [facility] Comment on above: Glucose result great er than or equal to 200 mg/dLsuggests DIABETES MELLITUS per A.D.A. criteria. Neutrophils (Bld) [#/Vol] 3.7 10*3/uL 2.0-7.7 [facility] Neutrophils/100 WBC (Bld) 59.8 % 47-70 [facility] Potassium [Moles/Vol] 3.5 mmol/L 3.5-5.1 [facility] Sodium [Moles/Vol] 141 mmol/L 136-145 [facility] WBC (Bld) [#/Vol] 6.2 10*3/uL 4.4-11.0 [facility] Blood erythrocytes count (nu mber/volume)Ordered By: Dr. Ortez on 04-05-2022 RBC (Bld) [#/Vol] 4.61 10*6/uL 4.2-5.[address] [facility] Blood hemoglobin measurement (mass/volume)Ordered By: Dr. Ortez on 04-05-2022 Hemoglobin (Bld) [Mass/Vol] 14.8 g/dL 12.0-15.0 [facility] Blood lymphocytes/100 leukoc ytesOrdered By: Dr. Ortez on 04-05-2022 Lymphocytes/100 WBC (Bld) 33.2 % 19-41 [facility] Blood monocytes/100 leukocyt esOrdered By: Dr. Ortez on 04-05-2022 Monocytes/100 WBC (Bld) 5.8 % 0-10 [facility] Blood platelet mean volumeOr dered By: Dr. Ortez on 04-05-2022 Platelet mean volume (Bld) [Entitic vol] 9.8 fL 6.2-12.0 [facility] Determination of erythrocyte mean corpuscular volume (MCV)Ordered By: Dr. Ortez on 04-05-2022 MCV (RBC) [Entitic vol] 91.8 fL 81-99 [facility] Hematocrit Auto (Bld) [Volum e fraction]Ordered By: Dr. Ortez on 04-05-2022 Hematocrit (Bld) [Volume fraction] 42.3 % 37-47 [facility] Laboratory - Chemistry and C hemistry - challengeOrdered By: Dr. Ortez on 04-05-2022 CO2 [Moles/Vol] 19.0 mmol/L 21.0-32.0 [facility] Urea nitrogen/Creatinine [Mass ratio] 25.4 mg/mg 10-20 [facility] Laboratory - Hematology and Cell countsOrdered By: Dr. Ortez on 04-05-2022 Erythrocyte distribution width (RBC) [Entitic vol] 48.6 fL 35.1-43.9 [facility] Erythrocyte distribution width (RBC) [Ratio] 14.5 % 11.6-14.6 [facility] Immature granulocytes/100 WBC (Bld) 0.300 % 0.0-0.9 [facility] Comment on above: IG% - Immature Granu locytes (promyelocytes, myelocytes and metamyelocytes) > 1% indicates that a LEFT SHIFT is Present. MCH (RBC) [Entitic mass] 32.1 pg 27.0-32.0 [facility] Nucleated RBC/100 WBC (Bld) [Ratio] 0 % 0-5 [facility] MCHC Auto (RBC) [Mass/Vol]Or dered By: Dr. Ortez on 04-05-2022 MCHC (RBC) [Mass/Vol] 35.0 g/dL 32-36 [facility] No Panel InformationOrdered By: Dr. Ortez on 04-05-2022 Troponin I High Sensitivity 9 pg/mL 3.0-54.0 [facility] Comment on above: Please Note: [place] Units and Gender Specific Reference Ranges. For more information see Policy Stat Procedure [place] High Sensitivity Troponin (TNIH) and attachments. Estimated Creatinine Clearance Calc 63.14 ml/min [facility] Estimated GFR (MDRD) Amer 84 mL/min >60 [facility] Comment on above: GFR Calc Estimated GFR (MDRD) Non-Af Amer 69 mL/min >60 [facility] Comment on above: Non- GFR Calc Platelets bldOrdered By: Dr. Ortez on 04-05-2022 Platelets (Bld) [#/Vol] 209 10*3/uL 150-450 [facility] Serum or plasma calcium oliver urement (mass/volume)Ordered By: Dr. Ortez on 04-05-2022 Calcium [Mass/Vol] 9.1 mg/dL 8.5-10.1 [facility] Serum or plasma creatinine m easurement (mass/volume)Ordered By: Dr. Ortez on 04-05-2022 Creatinine [Mass/Vol] 0.90 mg/dL 0.55-1.02 [facility] Comment on above: The validity of the calculated GFR & GFRAA in patients over 70 years has not been determined. Clinical correlation is essential. Serum or plasma urea nitroge n measurement (mass/volume)Ordered By: Dr. Ortez on 04-05-2022 Urea nitrogen [Mass/Vol] 23 mg/dL 7-18 [facility] Thin prep Papanicolaou smear with manual screeningOrdered By: Dr. Ortez on 04-05-2022 Thin prep Papanicolaou smear with manual screening 10 5-15 [facility] Absolute lymphocyte counton 02-24-2022 Lymphocytes Auto (Unsp spec) [#/Vol] 2.98 10*3/uL 0.83-4.51 [facility] Work Phone: Basophil percentageon 2021 Basophils/100 WBC (Bld) 0.3 % 0-1 [facility] Work Phone: [phone] Chloride [Moles/Vol] 108 mmol/L 98-107 [facility] Work Phone: Eosinophils/100 WBC (Bld) 1.0 % 0-5 [facility] Work Phone: Glucose [Mass/Vol] 161 mg/dL 74-106 [facility] Work Phone: Comment on above: Fasting Glucose resu lt greater than or equal to 126 mg/dL suggests DIABETES MELLITUS per A.D.A. criteria. Neutrophils (Bld) [#/Vol] 3.3 10*3/uL 2.0-7.7 [facility] Work Phone: Neutrophils/100 WBC (Bld) 48.3 % 47-70 [facility] Work Phone: Potassium [Moles/Vol] 4.0 mmol/L 3.5-5.1 [facility] Work Phone: Sodium [Moles/Vol] 138 mmol/L 136-145 [facility] Work Phone: [phone] WBC (Bld) [#/Vol] 6.9 10*3/uL 4.4-11.0 [facility] Work Phone: Blood erythrocytes count (nu mber/volume)on 02-24-2022 RBC (Bld) [#/Vol] 4.75 10*6/uL 4.2-5.[address] [facility] Work Phone: Blood hemoglobin measurement (mass/volume)on 02-24-2022 Hemoglobin (Bld) [Mass/Vol] 14.3 g/dL 12.0-15.0 [facility] Work Phone: Blood lymphocytes/100 leukoc yteson 02-24-2022 Lymphocytes/100 WBC (Bld) 43.1 % 19-41 [facility] Work Phone: Blood monocytes/100 leukocyt eson 02-24-2022 Monocytes/100 WBC (Bld) 7.2 % 0-10 [facility] Work Phone: Blood platelet mean volumeon 02-24-2022 Platelet mean volume (Bld) [Entitic vol] 9.4 fL 6.2-12.0 [facility] Work Phone: Determination of erythrocyte mean corpuscular volume (MCV)on 02-24-2022 MCV (RBC) [Entitic vol] 92.0 fL 81-99 [facility] Work Phone: Hematocrit Auto (Bld) [Volum e fraction]on 02-24-2022 Hematocrit (Bld) [Volume fraction] 43.7 % 37-47 [facility] Work Phone: Laboratory - Chemistry and C hemistry - challengeon 02-24-2022 CO2 [Moles/Vol] 23.0 mmol/L 21.0-32.0 [facility] Work Phone: Free T4 [Mass/Vol] 1.12 ng/dL 0.76-1.46 [facility] Work Phone: Natriuretic peptide B (Bld) [Mass/Vol] 15.7 pg/mL 0-100 [facility] Work Phone: Urea nitrogen/Creatinine [Mass ratio] 27.2 mg/mg 10-20 [facility] Work Phone: Laboratory - Hematology and Cell countson 02-24-2022 Erythrocyte distribution width (RBC) [Entitic vol] 48.5 fL 35.1-43.9 [facility] Work Phone: Erythrocyte distribution width (RBC) [Ratio] 14.4 % 11.6-14.6 [facility] Work Phone: Immature granulocytes/100 WBC (Bld) 0.100 % 0.0-0.9 [facility] Work Phone: Comment on above: IG% - Immature Granu locytes (promyelocytes, myelocytes and metamyelocytes) > 1% indicates that a LEFT SHIFT is Present. MCH (RBC) [Entitic mass] 30.1 pg 27.0-32.0 [facility] Work Phone: Nucleated RBC/100 WBC (Bld) [Ratio] 0 % 0-5 [facility] Work Phone: MCHC Auto (RBC) [Mass/Vol]on 02-24-2022 MCHC (RBC) [Mass/Vol] 32.7 g/dL 32-36 [facility] Work Phone: No Panel Informationon 02-24 Estimated GFR (MDRD) Amer 83 mL/min >60 [facility] Work Phone: Comment on above: GFR Calc Estimated GFR (MDRD) Non-Af Amer 68 mL/min >60 [facility] Work Phone: Comment on above: Non- GFR Calc Thyroid Stimulating Hormone (TSH) 0.01 uIU/mL 0.358-3.74 [facility] Work Phone: Platelets bldon 02-24-2022 Platelets (Bld) [#/Vol] 273 10*3/uL 150-450 [facility] Work Phone: Serum or plasma calcium oliver urement (mass/volume)on 02-24-2022 Calcium [Mass/Vol] 9.8 mg/dL 8.5-10.1 [facility] Work Phone: Serum or plasma creatinine m easurement (mass/volume)on 02-24-2022 Creatinine [Mass/Vol] 0.92 mg/dL 0.55-1.02 [facility] Work Phone: Comment on above: The validity of the calculated GFR & GFRAA in patients over 70 years has not been determined. Clinical correlation is essential. Serum or plasma urea nitroge n measurement (mass/volume)on 02-24-2022 Urea nitrogen [Mass/Vol] 25 mg/dL 7-18 [facility] Work Phone: Thin prep Papanicolaou smear with manual screeningon 02-24-2022 Thin prep Papanicolaou smear with manual screening 7 5-15 [facility] Work Phone: Absolute lymphocyte counton 01-24-2022 Lymphocytes Auto (Unsp spec) [#/Vol] 2.78 10*3/uL 0.83-4.51 [facility] Work Phone: Basophil percentageon 2021 Basophils/100 WBC (Bld) 0.2 % 0-1 [facility] Work Phone: Chloride [Moles/Vol] 112 mmol/L 98-107 [facility] Work Phone: [phone] Eosinophils/100 WBC (Bld) 1.1 % 0-5 [facility] Work Phone: Glucose [Mass/Vol] 166 mg/dL 74-106 [facility] Work Phone: Comment on above: Fasting Glucose resu lt greater than or equal to 126 mg/dL suggests DIABETES MELLITUS per A.D.A. criteria. Neutrophils (Bld) [#/Vol] 3.2 10*3/uL 2.0-7.7 [facility] Work Phone: [phone] Neutrophils/100 WBC (Bld) 49.0 % 47-70 [facility] Work Phone: Potassium [Moles/Vol] 3.7 mmol/L 3.5-5.1 [facility] Work Phone: Sodium [Moles/Vol] 142 mmol/L 136-145 [facility] Work Phone: [phone] WBC (Bld) [#/Vol] 6.4 10*3/uL 4.4-11.0 [facility] Work Phone: Blood erythrocytes count (nu mber/volume)on 01-24-2022 RBC (Bld) [#/Vol] 4.41 10*6/uL 4.2-5.[address] [facility] Work Phone: Blood hemoglobin measurement (mass/volume)on 01-24-2022 Hemoglobin (Bld) [Mass/Vol] 13.5 g/dL 12.0-15.0 [facility] Work Phone: [phone] Blood lymphocytes/100 leukoc yteson 01-24-2022 Lymphocytes/100 WBC (Bld) 43.3 % 19-41 [facility] Work Phone: Blood monocytes/100 leukocyt eson 01-24-2022 Monocytes/100 WBC (Bld) 6.1 % 0-10 [facility] Work Phone: Blood platelet mean volumeon 01-24-2022 Platelet mean volume (Bld) [Entitic vol] 9.8 fL 6.2-12.0 [facility] Work Phone: Determination of erythrocyte mean corpuscular volume (MCV)on 01-24-2022 MCV (RBC) [Entitic vol] 89.6 fL 81-99 [facility] Work Phone: Hematocrit Auto (Bld) [Volum e fraction]on 01-24-2022 Hematocrit (Bld) [Volume fraction] 39.5 % 37-47 [facility] Work Phone: Laboratory - Chemistry and C hemistry - challengeon 01-24-2022 CO2 [Moles/Vol] 23.0 mmol/L 21.0-32.0 [facility] Work Phone: Lipase [Catalytic activity/Vol] 284 U/L 73-393 [facility] Work Phone: Urea nitrogen/Creatinine [Mass ratio] 22.5 mg/mg 10-20 [facility] Work Phone: Laboratory - Hematology and Cell countson 01-24-2022 Erythrocyte distribution width (RBC) [Entitic vol] 42.0 fL 35.1-43.9 [facility] Work Phone: Erythrocyte distribution width (RBC) [Ratio] 12.8 % 11.6-14.6 [facility] Work Phone: Immature granulocytes/100 WBC (Bld) 0.300 % 0.0-0.9 [facility] Work Phone: Comment on above: IG% - Immature Granu locytes (promyelocytes, myelocytes and metamyelocytes) > 1% indicates that a LEFT SHIFT is Present. MCH (RBC) [Entitic mass] 30.6 pg 27.0-32.0 [facility] Work Phone: Nucleated RBC/100 WBC (Bld) [Ratio] 0 % 0-5 [facility] Work Phone: MCHC Auto (RBC) [Mass/Vol]on 01-24-2022 MCHC (RBC) [Mass/Vol] 34.2 g/dL 32-36 [facility] Work Phone: No Panel Informationon 01-24 Troponin I High Sensitivity 10 pg/mL 3.0-54.0 [facility] Work Phone: Comment on above: Please Note: [place] Units and Gender Specific Reference Ranges. For more information see Policy Stat Procedure [place] High Sensitivity Troponin (TNIH) and attachments. D-Dimer Quantitative (PE/DVT) 0.45 FEU/ug/m 0.27-0.49 [facility] Work Phone: Comment on above: NORMAL D-Dimer level (<0.50) indicates no DVT or PE. Estimated Creatinine Clearance Calc 57.99 ml/min [facility] Work Phone: Estimated GFR (MDRD) Amer 77 mL/min >60 [facility] Work Phone: Comment on above: GFR Calc Estimated GFR (MDRD) Non-Af Amer 64 mL/min >60 [facility] Work Phone: Comment on above: Non- GFR Calc Platelets bldon 01-24-2022 Platelets (Bld) [#/Vol] 201 10*3/uL 150-450 [facility] Work Phone: Serum or plasma calcium oliver urement (mass/volume)on 01-24-2022 Calcium [Mass/Vol] 8.9 mg/dL 8.5-10.1 [facility] Work Phone: Serum or plasma creatinine m easurement (mass/volume)on 01-24-2022 Creatinine [Mass/Vol] 0.98 mg/dL 0.55-1.02 [facility] Work Phone: Comment on above: The validity of the calculated GFR & GFRAA in patients over 70 years has not been determined. Clinical correlation is essential. Serum or plasma urea nitroge n measurement (mass/volume)on 01-24-2022 Urea nitrogen [Mass/Vol] 22 mg/dL 7-18 [facility] Work Phone: Thin prep Papanicolaou smear with manual screeningon 01-24-2022 Thin prep Papanicolaou smear with manual screening 7 5-15 [facility] Work Phone: Absolute lymphocyte counton 11-17-2021 Lymphocytes Auto (Unsp spec) [#/Vol] 2.16 10*3/uL 0.83-4.51 [facility] Work Phone: Basophil percentageon 2021 Lactate [Moles/Vol] 2.1 mmol/L 0.4-2.[address] [facility] Work Phone: Comment on above: Critical Result(s) C alled at: 06:10:00 11/17/2021 by: Félix Hardy. Ivan Haji 2 RN (ER). Results read back by same. Basophils/100 WBC (Bld) 0.2 % 0-1 [facility] Work Phone: Chloride [Moles/Vol] 109 mmol/L 98-107 [facility] Work Phone: Eosinophils/100 WBC (Bld) 1.0 % 0-5 [facility] Work Phone: Glucose [Mass/Vol] 305 mg/dL 74-106 [facility] Work Phone: Comment on above: Glucose result great er than or equal to 200 mg/dLsuggests DIABETES MELLITUS per A.D.A. criteria. Neutrophils (Bld) [#/Vol] 2.4 10*3/uL 2.0-7.7 [facility] Work Phone: Neutrophils/100 WBC (Bld) 48.2 % 47-70 [facility] Work Phone: Potassium [Moles/Vol] 3.6 mmol/L 3.5-5.1 [facility] Work Phone: Sodium [Moles/Vol] 140 mmol/L 136-145 [facility] Work Phone: WBC (Bld) [#/Vol] 4.9 10*3/uL 4.4-11.0 [facility] Work Phone: Blood erythrocytes count (nu mber/volume)on 11-17-2021 RBC (Bld) [#/Vol] 3.51 10*6/uL 4.2-5.[address] [facility] Work Phone: Blood hemoglobin measurement (mass/volume)on 11-17-2021 Hemoglobin (Bld) [Mass/Vol] 10.7 g/dL 12.0-15.0 [facility] Work Phone: Blood lymphocytes/100 leukoc yteson 11-17-2021 Lymphocytes/100 WBC (Bld) 44.3 % 19-41 [facility] Work Phone: Blood monocytes/100 leukocyt eson 11-17-2021 Monocytes/100 WBC (Bld) 6.1 % 0-10 [facility] Work Phone: Blood platelet mean volumeon 11-17-2021 Platelet mean volume (Bld) [Entitic vol] 9.7 fL 6.2-12.0 [facility] Work Phone: Determination of erythrocyte mean corpuscular volume (MCV)on 11-17-2021 MCV (RBC) [Entitic vol] 94.9 fL 81-99 [facility] Work Phone: Hematocrit Auto (Bld) [Volum e fraction]on 11-17-2021 Hematocrit (Bld) [Volume fraction] 33.3 % 37-47 [facility] Work Phone: Laboratory - Chemistry and C hemistry - challengeon 11-17-2021 CO2 [Moles/Vol] 25.0 mmol/L 21.0-32.0 [facility] Work Phone: Urea nitrogen/Creatinine [Mass ratio] 17.6 mg/mg 10-20 [facility] Work Phone: Laboratory - Hematology and Cell countson 11-17-2021 Erythrocyte distribution width (RBC) [Entitic vol] 50.0 fL 35.1-43.9 [facility] Work Phone: Erythrocyte distribution width (RBC) [Ratio] 14.6 % 11.6-14.6 [facility] Work Phone: Immature granulocytes/100 WBC (Bld) 0.200 % 0.0-0.9 [facility] Work Phone: Comment on above: IG% - Immature Granu locytes (promyelocytes, myelocytes and metamyelocytes) > 1% indicates that a LEFT SHIFT is Present. MCH (RBC) [Entitic mass] 30.5 pg 27.0-32.0 [facility] Work Phone: Nucleated RBC/100 WBC (Bld) [Ratio] 0 % 0-5 [facility] Work Phone: MCHC Auto (RBC) [Mass/Vol]on 11-17-2021 MCHC (RBC) [Mass/Vol] 32.1 g/dL 32-36 [facility] Work Phone: No Panel Informationon 11-17 Estimated Creatinine Clearance Calc 45.98 ml/min [facility] Work Phone: Estimated GFR (MDRD) Amer 58 mL/min >60 [facility] Work Phone: Comment on above: GFR Calc Estimated GFR (MDRD) Non-Af Amer 48 mL/min >60 [facility] Work Phone: Comment on above: Non- GFR Calc Troponin I High Sensitivity 9 pg/mL 3.0-54.0 [facility] Work Phone: Comment on above: Please Note: [place] t Units and Gender Specific Reference Ranges. For more information see Policy Stat Procedure [place] High Sensitivity Troponin (TNIH) and attachments. Platelets bldon 11-17-2021 Platelets (Bld) [#/Vol] 230 10*3/uL 150-450 [facility] Work Phone: Serum or plasma calcium oliver urement (mass/volume)on 11-17-2021 Calcium [Mass/Vol] 8.9 mg/dL 8.5-10.1 [facility] Work Phone: Serum or plasma creatinine m easurement (mass/volume)on 11-17-2021 Creatinine [Mass/Vol] 1.25 mg/dL 0.55-1.02 [facility] Work Phone: Comment on above: The validity of the calculated GFR & GFRAA in patients over 70 years has not been determined. Clinical correlation is essential. Serum or plasma urea nitroge n measurement (mass/volume)on 11-17-2021 Urea nitrogen [Mass/Vol] 22 mg/dL 7-18 [facility] Work Phone: Thin prep Papanicolaou smear with manual screeningon 11-17-2021 Thin prep Papanicolaou smear with manual screening 6 5-15 [facility] Work Phone: Absolute lymphocyte counton 11-06-2021 Lymphocytes Auto (Unsp spec) [#/Vol] 1.86 10*3/uL 0.83-4.51 [facility] Work Phone: Amorphous sediment detection in urine sediment by light microscopyon 11-06-2021 Amorphous sediment LM Ql (Urine sed) 1+ URATE [facility] Work Phone: Basophil percentageon 2021 Basophil percentage 25-50 SEEN /hpf 0-5 [facility] Work Phone: Basophils/100 WBC (Bld) 0.2 % 0-1 [facility] Work Phone: Chloride [Moles/Vol] 113 mmol/L 98-107 [facility] Work Phone: [phone] Eosinophils/100 WBC (Bld) 0.8 % 0-5 [facility] Work Phone: Glucose [Mass/Vol] 124 mg/dL 74-106 [facility] Work Phone: Comment on above: Fasting Glucose resu lt from 100 to 125 mg/dL suggests IMPAIRED HOMEOSTASIS per A.D.A. criteria. Neutrophils (Bld) [#/Vol] 4.0 10*3/uL 2.0-7.7 [facility] Work Phone: Neutrophils/100 WBC (Bld) 63.7 % 47-70 [facility] Work Phone: Potassium [Moles/Vol] 3.9 mmol/L 3.5-5.1 [facility] Work Phone: Comment on above: Slight Hemolysis, Re sult may be falsely increased. Sodium [Moles/Vol] 142 mmol/L 136-145 [facility] Work Phone: WBC (Bld) [#/Vol] 6.3 10*3/uL 4.4-11.0 [facility] Work Phone: Bilirubin Test strip Ql (U)o n 11-06-2021 Bilirubin Ql (U) 1 mg/dL Negative [facility] Work Phone: Comment on above: COLOR OF URINE MAY A FFECT DIPSTICK RESULTS. Blood erythrocytes count (nu mber/volume)on 11-06-2021 RBC (Bld) [#/Vol] 3.49 10*6/uL 4.2-5.[address] [facility] Work Phone: Blood hemoglobin measurement (mass/volume)on 11-06-2021 Hemoglobin (Bld) [Mass/Vol] 10.9 g/dL 12.0-15.0 [facility] Work Phone: Blood lymphocytes/100 leukoc yteson 11-06-2021 Lymphocytes/100 WBC (Bld) 29.7 % 19-41 [facility] Work Phone: [phone] Blood monocytes/100 leukocyt eson 11-06-2021 Monocytes/100 WBC (Bld) 5.4 % 0-10 [facility] Work Phone: Blood platelet mean volumeon 11-06-2021 Platelet mean volume (Bld) [Entitic vol] 9.7 fL 6.2-12.0 [facility] Work Phone: Determination of erythrocyte mean corpuscular volume (MCV)on 11-06-2021 MCV (RBC) [Entitic vol] 93.1 fL 81-99 [facility] Work Phone: Hematocrit Auto (Bld) [Volum e fraction]on 11-06-2021 Hematocrit (Bld) [Volume fraction] 32.5 % 37-47 [facility] Work Phone: Ketones Test strip Ql (U)on 11-06-2021 Ketones Ql (U) Negative Negative [facility] Work Phone: Laboratory - Chemistry and C hemistry - challengeon 11-06-2021 CO2 [Moles/Vol] 22.0 mmol/L 21.0-32.0 [facility] Work Phone: Natriuretic peptide B (Bld) [Mass/Vol] 204.9 pg/mL 0-100 [facility] Work Phone: Urea nitrogen/Creatinine [Mass ratio] 18.3 mg/mg 10-20 [facility] Work Phone: Laboratory - Hematology and Cell countson 11-06-2021 Erythrocyte distribution width (RBC) [Entitic vol] 48.6 fL 35.1-43.9 [facility] Work Phone: Erythrocyte distribution width (RBC) [Ratio] 14.4 % 11.6-14.6 [facility] Work Phone: Immature granulocytes/100 WBC (Bld) 0.200 % 0.0-0.9 [facility] Work Phone: Comment on above: IG% - Immature Granu locytes (promyelocytes, myelocytes and metamyelocytes) > 1% indicates that a LEFT SHIFT is Present. MCH (RBC) [Entitic mass] 31.2 pg 27.0-32.0 [facility] Work Phone: Nucleated RBC/100 WBC (Bld) [Ratio] 0 % 0-5 [facility] Work Phone: MCHC Auto (RBC) [Mass/Vol]on 11-06-2021 MCHC (RBC) [Mass/Vol] 33.5 g/dL 32-36 [facility] Work Phone: Mucus LM Ql (Urine sed)on Mucus Ql (Urine sed) 0 SEEN /hpf [facility] Work Phone: Nitrite Test strip Ql (U)on 11-06-2021 Nitrite Ql (U) Positive Negative [facility] Work Phone: No Panel Informationon 11-06 SARS-CoV-2 & FLU Antigen (Rapid) [facility] Work Phone: Estimated Creatinine Clearance Calc 52.73 ml/min [facility] Work Phone: Estimated GFR (MDRD) Amer 68 mL/min >60 [facility] Work Phone: Comment on above: GFR Calc Estimated GFR (MDRD) Non-Af Amer 56 mL/min >60 [facility] Work Phone: Comment on above: Non- GFR Calc Troponin I High Sensitivity 4 pg/mL 3.0-54.0 [facility] Work Phone: Comment on above: Please Note: [place] Units and Gender Specific Reference Ranges. For more information see Policy Stat Procedure [place] High Sensitivity Troponin (TNIH) and attachments. Platelets bldon 11-06-2021 Platelets (Bld) [#/Vol] 222 10*3/uL 150-450 [facility] Work Phone: Protein Test strip Ql (U)on 11-06-2021 Protein Ql (U) 30 mg/dl Negative [facility] Work Phone: Serum or plasma calcium oliver urement (mass/volume)on 11-06-2021 Calcium [Mass/Vol] 9.2 mg/dL 8.5-10.1 [facility] Work Phone: Serum or plasma creatinine m easurement (mass/volume)on 11-06-2021 Creatinine [Mass/Vol] 1.09 mg/dL 0.55-1.02 [facility] Work Phone: Comment on above: The validity of the calculated GFR & GFRAA in patients over 70 years has not been determined. Clinical correlation is essential. Serum or plasma urea nitroge n measurement (mass/volume)on 11-06-2021 Urea nitrogen [Mass/Vol] 20 mg/dL 7-18 [facility] Work Phone: Squamous epithelial cells de tection in urine sediment by light microscopyon 11-06-2021 Epithelial cells.squamous LM Ql (Urine sed) 0-5 SEEN /hpf 5-10 [facility] Work Phone: Thin prep Papanicolaou smear with manual screeningon 11-06-2021 Thin prep Papanicolaou smear with manual screening 7 5-15 [facility] Work Phone: Urine blood detectionon RBC Ql (U) 150 /ul Negative [facility] Work Phone: RBC Ql (U) 10-25 SEEN /hpf 0-5 [facility] Work Phone: Urine clarityon 11-06-2021 Clarity (U) Sl. Cloudy Clear [facility] Work Phone: Urine color determinationon 11-06-2021 Color (U) Yellow Yellow [facility] Work Phone: Urine glucose detectionon Glucose Ql (U) 1000 mg/dl Normal [facility] Work Phone: Urine leukocyte esterase det ection by dipstickon 11-06-2021 Leukocyte esterase Test strip Ql (U) 100 /ul Negative [facility] Work Phone: Urine pHon 11-06-2021 pH (U) 6.0 [pH] 5.0 - 8.0 [facility] Work Phone: Urine sediment bacteria coun t by microscopy (number/high power field)on 11-06-2021 Bacteria LM.HPF (Urine sed) [#/Area] 1 /[HPF] None Seen [facility] Work Phone: Urine specific gravity measu rementon 11-06-2021 Specific gravity (U) [Rel density] 1.010 1.002-1.030 [facility] Work Phone: Urobilinogen Auto test strip Ql (U)on 11-06-2021 Urobilinogen Ql (U) 4 mg/dl Normal [facility] Work Phone: Laboratory - Drug toxicology on 10-27-2021 Amphetamines Ql (U) Negative [facility] Work Phone: Benzodiazepines Ql (U) Negative [facility] Work Phone: Cannabinoids Screen Ql (U) Negative [facility] Work Phone: Cocaine Ql (U) Negative [facility] Work Phone: Opiates Ql (U) Positive [facility] Work Phone: No Panel Informationon 10-27 MDMA (Ecstasy) Screen Negative [facility] Work Phone: Miscellaneous Test See comment [facility] Work Phone: Comment on above: [id number] 6+OXYCODONE-B UND (ng/mL) DRUG RESULT SCREEN CUTOFF____ [...] UR 755 ng/mL 300 TESTING PERFORMED AT [facility]. ORIGINAL REPORT ON FILE IN LAB CONTAINS ADDITIONAL TEST SITE INFORMATION. Urine Barbiturates Screen Negative [facility] Work Phone: Urine Drug Screen Comment [facility] Work Phone: Comment on above: CONFIRMATORY TESTING [...] USE TESTMNEMONIC: [facility] Urine Methadone Screen Negative [facility] Work Phone: Urine phencyclidine (PCP) de tectionon 10-27-2021 Phencyclidine Ql (U) Negative [facility] Work Phone: Absolute lymphocyte counton 09-20-2021 Lymphocytes Auto (Unsp spec) [#/Vol] 1.77 10*3/uL 0.83-4.51 [facility] Work Phone: Basophil percentageon 2021 Bilirubin [Mass/Vol] 0.50 mg/dL 0.20-1.00 [facility] Work Phone: Comment on above: For patients on eltr ombopag therapy, use of Dimension [place] TBIL is not recommended. Chloride [Moles/Vol] 108 mmol/L 98-107 [facility] Work Phone: Glucose [Mass/Vol] 189 mg/dL 74-106 [facility] Work Phone: Comment on above: Fasting Glucose resu lt greater than or equal to 126 mg/dL suggests DIABETES MELLITUS per A.D.A. criteria. Potassium [Moles/Vol] 3.8 mmol/L 3.5-5.1 [facility] Work Phone: Protein [Mass/Vol] 7.3 g/dL 6.4-8.2 [facility] Work Phone: Sodium [Moles/Vol] 141 mmol/L 136-145 [facility] Work Phone: Basophils/100 WBC (Bld) 0.4 % 0-1 [facility] Work Phone: Eosinophils/100 WBC (Bld) 1.5 % 0-5 [facility] Work Phone: Neutrophils (Bld) [#/Vol] 3.3 10*3/uL 2.0-7.7 [facility] Work Phone: Neutrophils/100 WBC (Bld) 59.2 % 47-70 [facility] Work Phone: WBC (Bld) [#/Vol] 5.5 10*3/uL 4.4-11.0 [facility] Work Phone: [phone] Blood erythrocytes count (nu mber/volume)on 09-20-2021 RBC (Bld) [#/Vol] 4.11 10*6/uL 4.2-5.[address] [facility] Work Phone: Blood hemoglobin measurement (mass/volume)on 09-20-2021 Hemoglobin (Bld) [Mass/Vol] 12.6 g/dL 12.0-15.0 [facility] Work Phone: Blood lymphocytes/100 leukoc yteson 09-20-2021 Lymphocytes/100 WBC (Bld) 32.3 % 19-41 [facility] Work Phone: Blood monocytes/100 leukocyt eson 09-20-2021 Monocytes/100 WBC (Bld) 6.2 % 0-10 [facility] Work Phone: Blood platelet mean volumeon 09-20-2021 Platelet mean volume (Bld) [Entitic vol] 10.4 fL 6.2-12.0 [facility] Work Phone: Determination of erythrocyte mean corpuscular volume (MCV)on 09-20-2021 MCV (RBC) [Entitic vol] 91.7 fL 81-99 [facility] Work Phone: Hematocrit Auto (Bld) [Volum e fraction]on 09-20-2021 Hematocrit (Bld) [Volume fraction] 37.7 % 37-47 [facility] Work Phone: Laboratory - Chemistry and C hemistry - challengeon 09-20-2021 ALP [Catalytic activity/Vol] 61 U/L 45-117 [facility] Work Phone: ALT [Catalytic activity/Vol] 23 U/L 13-56 [facility] Work Phone: CO2 [Moles/Vol] 26.0 mmol/L 21.0-32.0 [facility] Work Phone: Globulin (S) [Mass/Vol] 4.1 g/dL 2.2-4.2 [facility] Work Phone: Urea nitrogen/Creatinine [Mass ratio] 19.0 mg/mg 10-20 [facility] Work Phone: Laboratory - Hematology and Cell countson 09-20-2021 Erythrocyte distribution width (RBC) [Entitic vol] 43.5 fL 35.1-43.9 [facility] Work Phone: Erythrocyte distribution width (RBC) [Ratio] 12.8 % 11.6-14.6 [facility] Work Phone: Immature granulocytes/100 WBC (Bld) 0.400 % 0.0-0.9 [facility] Work Phone: Comment on above: IG% - Immature Granu locytes (promyelocytes, myelocytes and metamyelocytes) > 1% indicates that a LEFT SHIFT is Present. MCH (RBC) [Entitic mass] 30.7 pg 27.0-32.0 [facility] Work Phone: Nucleated RBC/100 WBC (Bld) [Ratio] 0 % 0-5 [facility] Work Phone: MCHC Auto (RBC) [Mass/Vol]on 09-20-2021 MCHC (RBC) [Mass/Vol] 33.4 g/dL 32-36 [facility] Work Phone: No Panel Informationon 09-20 Estimated Creatinine Clearance Calc 63.04 ml/min [facility] Work Phone: Estimated GFR (MDRD) Amer 80 mL/min >60 [facility] Work Phone: Comment on above: GFR Calc Estimated GFR (MDRD) Non-Af Amer 66 mL/min >60 [facility] Work Phone: Comment on above: Non- GFR Calc Platelets bldon 09-20-2021 Platelets (Bld) [#/Vol] 256 10*3/uL 150-450 [facility] Work Phone: Serum or plasma albumin oliver urement (mass/volume)on 09-20-2021 Albumin [Mass/Vol] 3.2 g/dL 3.2-5.0 [facility] Work Phone: Serum or plasma albumin/glob ulin mass ratioon 09-20-2021 Albumin/Globulin [Mass ratio] 0.8 {ratio} 0.9-2.4 [facility] Work Phone: Serum or plasma calcium oliver urement (mass/volume)on 09-20-2021 Calcium [Mass/Vol] 9.1 mg/dL 8.5-10.1 [facility] Work Phone: Serum or plasma creatinine m easurement (mass/volume)on 09-20-2021 Creatinine [Mass/Vol] 0.95 mg/dL 0.55-1.02 [facility] Work Phone: Comment on above: The validity of the calculated GFR & GFRAA in patients over 70 years has not been determined. Clinical correlation is essential. Serum or plasma urea nitroge n measurement (mass/volume)on 09-20-2021 Urea nitrogen [Mass/Vol] 18 mg/dL 7-18 [facility] Work Phone: Thin prep Papanicolaou smear with manual screeningon 09-20-2021 Thin prep Papanicolaou smear with manual screening 15 U/L 15-37 [facility] Work Phone: Thin prep Papanicolaou smear with manual screening 7 5-15 [facility] Work Phone: Glucose Glucometer (BldC) [M ass/Vol]on 09-16-2021 Glucose [Mass/Vol] 310 mg/dL 74-106 [facility] Work Phone: Comment on above: MANAGEMENT OF PATIEN T CARE PER NURSING PROTOCOL Absolute lymphocyte counton 09-14-2021 Lymphocytes Auto (Unsp spec) [#/Vol] 1.79 10*3/uL 0.83-4.51 [facility] Work Phone: Basophil percentageon 2021 Basophils/100 WBC (Bld) 0.1 % 0-1 [facility] Work Phone: Bilirubin [Mass/Vol] 0.50 mg/dL 0.20-1.00 [facility] Work Phone: Comment on above: For patients on eltr ombopag therapy, use of Dimension [place] TBIL is not recommended. Chloride [Moles/Vol] 107 mmol/L 98-107 [facility] Work Phone: Eosinophils/100 WBC (Bld) 0.2 % 0-5 [facility] Work Phone: Glucose [Mass/Vol] 154 mg/dL 74-106 [facility] Work Phone: Comment on above: Fasting Glucose resu lt greater than or equal to 126 mg/dL suggests DIABETES MELLITUS per A.D.A. criteria. Neutrophils (Bld) [#/Vol] 6.7 10*3/uL 2.0-7.7 [facility] Work Phone: Neutrophils/100 WBC (Bld) 73.2 % 47-70 [facility] Work Phone: Potassium [Moles/Vol] 3.9 mmol/L 3.5-5.1 [facility] Work Phone: Protein [Mass/Vol] 7.0 g/dL 6.4-8.2 [facility] Work Phone: Sodium [Moles/Vol] 137 mmol/L 136-145 [facility] Work Phone: WBC (Bld) [#/Vol] 9.1 10*3/uL 4.4-11.0 [facility] Work Phone: Blood erythrocytes count (nu mber/volume)on 09-14-2021 RBC (Bld) [#/Vol] 4.08 10*6/uL 4.2-5.4 [facility] Work Phone: Blood hemoglobin measurement (mass/volume)on 09-14-2021 Hemoglobin (Bld) [Mass/Vol] 12.4 g/dL 12.0-15.0 [facility] Work Phone: Blood lymphocytes/100 leukoc yteson 09-14-2021 Lymphocytes/100 WBC (Bld) 19.7 % 19-41 [facility] Work Phone: [phone] Blood monocytes/100 leukocyt eson 09-14-2021 Monocytes/100 WBC (Bld) 6.5 % 0-10 [facility] Work Phone: Blood platelet mean volumeon 09-14-2021 Platelet mean volume (Bld) [Entitic vol] 10.6 fL 6.2-12.0 [facility] Work Phone: Determination of erythrocyte mean corpuscular volume (MCV)on 09-14-2021 MCV (RBC) [Entitic vol] 90.2 fL 81-99 [facility] Work Phone: Glucose Glucometer (BldC) [M ass/Vol]on 09-14-2021 Glucose [Mass/Vol] 120 mg/dL 74-106 [facility] Work Phone: Comment on above: MANAGEMENT OF PATIEN T CARE PER NURSING PROTOCOL Hematocrit Auto (Bld) [Volum e fraction]on 09-14-2021 Hematocrit (Bld) [Volume fraction] 36.8 % 37-47 [facility] Work Phone: Laboratory - Chemistry and C hemistry - challengeon 09-14-2021 ALP [Catalytic activity/Vol] 56 U/L 45-117 [facility] Work Phone: ALT [Catalytic activity/Vol] 19 U/L 13-56 [facility] Work Phone: CO2 [Moles/Vol] 24.0 mmol/L 21.0-32.0 [facility] Work Phone: Globulin (S) [Mass/Vol] 3.8 g/dL 2.2-4.2 [facility] Work Phone: Urea nitrogen/Creatinine [Mass ratio] 40.4 mg/mg 10-20 [facility] Work Phone: Laboratory - Hematology and Cell countson 09-14-2021 Erythrocyte distribution width (RBC) [Entitic vol] 43.0 fL 35.1-43.9 [facility] Work Phone: Erythrocyte distribution width (RBC) [Ratio] 13.0 % 11.6-14.6 [facility] Work Phone: Immature granulocytes/100 WBC (Bld) 0.300 % 0.0-0.9 [facility] Work Phone: Comment on above: IG% - Immature Granu locytes (promyelocytes, myelocytes and metamyelocytes) > 1% indicates that a LEFT SHIFT is Present. MCH (RBC) [Entitic mass] 30.4 pg 27.0-32.0 [facility] Work Phone: Nucleated RBC/100 WBC (Bld) [Ratio] 0 % 0-5 [facility] Work Phone: MCHC Auto (RBC) [Mass/Vol]on 09-14-2021 MCHC (RBC) [Mass/Vol] 33.7 g/dL 32-36 [facility] Work Phone: No Panel Informationon 09-14 Estimated Creatinine Clearance Calc 62.47 ml/min [facility] Work Phone: Estimated GFR (MDRD) Amer 83 mL/min >60 [facility] Work Phone: Comment on above: GFR Calc Estimated GFR (MDRD) Non-Af Amer 69 mL/min >60 [facility] Work Phone: Comment on above: Non- GFR Calc Platelets bldon 09-14-2021 Platelets (Bld) [#/Vol] 222 10*3/uL 150-450 [facility] Work Phone: Serum or plasma albumin oliver urement (mass/volume)on 09-14-2021 Albumin [Mass/Vol] 3.2 g/dL 3.2-5.0 [facility] Work Phone: Serum or plasma albumin/glob ulin mass ratioon 09-14-2021 Albumin/Globulin [Mass ratio] 0.8 {ratio} 0.9-2.4 [facility] Work Phone: Serum or plasma calcium oliver urement (mass/volume)on 09-14-2021 Calcium [Mass/Vol] 8.8 mg/dL 8.5-10.1 [facility] Work Phone: Serum or plasma creatinine m easurement (mass/volume)on 09-14-2021 Creatinine [Mass/Vol] 0.92 mg/dL 0.55-1.02 [facility] Work Phone: Comment on above: The validity of the calculated GFR & GFRAA in patients over 70 years has not been determined. Clinical correlation is essential. Serum or plasma urea nitroge n measurement (mass/volume)on 09-14-2021 Urea nitrogen [Mass/Vol] 37 mg/dL 7-18 [facility] Work Phone: Thin prep Papanicolaou smear with manual screeningon 09-14-2021 Thin prep Papanicolaou smear with manual screening 11 U/L 15-37 [facility] Work Phone: Thin prep Papanicolaou smear with manual screening 6 5-15 [facility] Work Phone: Assessment of wrist artery p atency prior to arterial punctureon 09-09-2021 Arterial patency Wrist artery --pre arterial puncture N/A [facility] Work Phone: Base excesson 09-09-2021 Base excess Calc (BldV) [Moles/Vol] -3 mmol/L -2-2 [facility] Work Phone: Basophil percentageon 2021 Cholesterol [Mass/Vol] 134 mg/dL <200 [facility] Work Phone: Comment on above: <200 mg/dL Desirable 200-240 mg/dL Borderline >240 mg/dL High Risk Lactate [Moles/Vol] 2.0 mmol/L 0.4-2.[address] [facility] Work Phone: Comment on above: Critical Result(s) C alled at: 02:39:21 09/09/2021 by: ROBERT NUÑEZ to Sheri Galeano RN ICU. Results read back by same. Triglyceride [Mass/Vol] 69 mg/dL [facility] Work Phone: Comment on above: The drugs N-Acetylcy steine and Metamizole may falsely depress this assay.Serum Triglycerides Reference Interval Normal <150 mg/dL Borderline high 150 - 199 mg/dL High 200 - 499 mg/dL Very High > or = 500 mg/dL Basophil percentage 22.1 mmol/L 22-26 [facility] Work Phone: Basophils/100 WBC (Bld) 99 % 95-99 [facility] Work Phone: CO2 (BldA) [Partial pressure ]on 09-09-2021 CO2 (Bld) [Partial pressure] 39.1 mm[Hg] 35-45 [facility] Work Phone: No Panel Informationon 09-09 Troponin I High Sensitivity 1525 pg/mL 3.0-54.0 [facility] Work Phone: Comment on above: Critical Result(s) C alled at: 02:39:06 09/09/2021 by: ROBERT Galeano RN ICU. Results read back by same. Please Note: New Test Units and Gender Specific Reference Ranges. For more information see Policy Stat Procedure [place] High Sensitivity Troponin (TNIH) and attachments. Bedside Blood Gas PEEP 5 [facility] Work Phone: Blood Gas Oxygen Percent 70 [facility] Work Phone: Blood Gas Respiration Rate 14 [facility] Work Phone: Blood Gas Sample Site L Radial [facility] Work Phone: Blood Gas Specimen Type ART [facility] Work Phone: Blood Gas Tidal Volume 450 [facility] Work Phone: Blood Gas Total CO2 23 mmol/L [facility] Work Phone: Blood Gas Vent Mode AC [facility] Work Phone: Oxygen Delivery Device Adult Vent [facility] Work Phone: Oxygen (BldA) [Partial press ure]on 09-09-2021 Oxygen (Bld) [Partial pressure] 125 mmHG 75-100 [facility] Work Phone: Serum or plasma cholesterol in HDL measurement (mass/volume)on 09-09-2021 Cholesterol in HDL [Mass/Vol] 65 mg/dL [facility] Work Phone: Comment on above: The drugs N-Acetylcy steine and Metamizole may falsely depress this assay. Reference Range HDL <40 mg/dL Low HDL Cholesterol HDL >or= 60 mg/dL High HDL Cholesterol Serum or plasma cholesterol in VLDL measurement (mass/volume)on 09-09-2021 Cholesterol in VLDL [Mass/Vol] 14 mg/dL 5-40 [facility] Work Phone: Serum or plasma low density lipoprotein (LDL) cholesterol measurement (mass/volume)on 09-09-2021 Cholesterol in LDL [Mass/Vol] 55 mg/dL 0-130 [facility] Work Phone: pH measurementon 09-09-2021 pH (Unsp spec) 7.36 [pH] 7.35-7.45 [facility] Work Phone: Absolute lymphocyte counton 09-08-2021 Lymphocytes Auto (Unsp spec) [#/Vol] 6.24 10*3/uL 0.83-4.51 [facility] Work Phone: Assessment of wrist artery p atency prior to arterial punctureon 09-08-2021 Arterial patency Wrist artery --pre arterial puncture N/A [facility] Work Phone: Base excesson 09-08-2021 Base excess Calc (BldV) [Moles/Vol] -10 mmol/L -2-2 [facility] Work Phone: Basophil percentageon 2021 Basophil percentage 17.7 mmol/L 22-26 [facility] Work Phone: Basophils/100 WBC (Bld) 96 % 95-99 [facility] Work Phone: Basophils/100 WBC (Bld) 0.4 % 0-1 [facility] Work Phone: Chloride [Moles/Vol] 105 mmol/L 98-107 [facility] Work Phone: Eosinophils/100 WBC (Bld) 0.3 % 0-5 [facility] Work Phone: Glucose [Mass/Vol] 468 mg/dL 74-106 [facility] Work Phone: Comment on above: Critical Result(s) C alled at: 21:06:03 09/08/2021 by: MARIA T GÓMEZ TO TALISHA DURON. Results read back by same.Glucose result greater than or equal to 200 mg/dLsuggests DIABETES MELLITUS per A.D.A. criteria. Lactate [Moles/Vol] 7.6 mmol/L 0.4-2.[address] [facility] Work Phone: Comment on above: Critical Result(s) C alled at: 21:30:56 09/08/2021 by: MARIA T GÓMEZ TO MIKE JURADO. Results read back by same. Neutrophils (Bld) [#/Vol] 7.9 10*3/uL 2.0-7.7 [facility] Work Phone: Neutrophils/100 WBC (Bld) 54.0 % 47-70 [facility] Work Phone: Potassium [Moles/Vol] 4.0 mmol/L 3.5-5.1 [facility] Work Phone: [phone] Sodium [Moles/Vol] 137 mmol/L 136-145 [facility] Work Phone: WBC (Bld) [#/Vol] 14.7 10*3/uL 4.4-11.0 [facility] Work Phone: Basophil percentage 0-5 SEEN /hpf [facility] Work Phone: Bilirubin Test strip Ql (U)o n 09-08-2021 Bilirubin Ql (U) Negative Negative [facility] Work Phone: Blood erythrocytes count (nu mber/volume)on 09-08-2021 RBC (Bld) [#/Vol] 4.74 10*6/uL 4.2-5.[address] [facility] Work Phone: Blood hemoglobin measurement (mass/volume)on 09-08-2021 Hemoglobin (Bld) [Mass/Vol] 14.6 g/dL 12.0-15.0 [facility] Work Phone: Blood lymphocytes/100 leukoc yteson 09-08-2021 Lymphocytes/100 WBC (Bld) 42.3 % 19-41 [facility] Work Phone: Blood manual differential co mment interpretation (narrative result)on 09-08-2021 Manual differential comment Jacob (Bld) [Interp] See comment [facility] Work Phone: Comment on above: LYMPHOCYTOSIS NOTED Blood monocytes/100 leukocyt eson 09-08-2021 Monocytes/100 WBC (Bld) 2.6 % 0-10 [facility] Work Phone: Blood platelet adequacy dete ction by light microscopyon 09-08-2021 Platelets LM Ql (Bld) ADEQUATE ADEQ [facility] Work Phone: Blood platelet mean volumeon 09-08-2021 Platelet mean volume (Bld) [Entitic vol] 10.9 fL 6.2-12.0 [facility] Work Phone: Bronchoalveolar lavage cultu re with Gram stainon 09-08-2021 Respiratory microbial culture or Staphylococcus aureus isolated. [facility] Work Phone: CO2 (BldA) [Partial pressure ]on 09-08-2021 CO2 (Bld) [Partial pressure] 43.9 mm[Hg] 35-45 [facility] Work Phone: Determination of erythrocyte mean corpuscular volume (MCV)on 09-08-2021 MCV (RBC) [Entitic vol] 98.7 fL 81-99 [facility] Work Phone: Gram stain for investigation of transfusion reactionon 09-08-2021 Microscopic observation Gram stain Nom (Unsp spec) [facility] Work Phone: Hematocrit Auto (Bld) [Volum e fraction]on 09-08-2021 Hematocrit (Bld) [Volume fraction] 46.8 % 37-47 [facility] Work Phone: INR in Blood by Coagulation assayon 09-08-2021 INR Coag (Bld) [Relative time] 1.1 {INR} [facility] Work Phone: Ketones Test strip Ql (U)on 09-08-2021 Ketones Ql (U) Negative Negative [facility] Work Phone: Laboratory - Chemistry and C hemistry - challengeon 09-08-2021 CO2 [Moles/Vol] 19.0 mmol/L 21.0-32.0 [facility] Work Phone: Magnesium [Mass/Vol] 2.3 mg/dL 1.6-2.6 [facility] Work Phone: Natriuretic peptide B (Bld) [Mass/Vol] 618.5 pg/mL 0-100 [facility] Work Phone: Urea nitrogen/Creatinine [Mass ratio] 17.1 mg/mg 10-20 [facility] Work Phone: Laboratory - Coagulationon 0 09-08-2021 aPTT Coag (Bld) [Time] 31.1 s 24.1-36.2 [facility] Work Phone: PT Coag (PPP) [Time] 13.6 s 11.7-14.[address] [facility] Work Phone: Laboratory - Hematology and Cell countson 09-08-2021 Erythrocyte distribution width (RBC) [Entitic vol] 48.1 fL 35.1-43.9 [facility] Work Phone: Erythrocyte distribution width (RBC) [Ratio] 13.1 % 11.6-14.6 [facility] Work Phone: Immature granulocytes/100 WBC (Bld) 0.400 % 0.0-0.9 [facility] Work Phone: Comment on above: IG% - Immature Granu locytes (promyelocytes, myelocytes and metamyelocytes) > 1% indicates that a LEFT SHIFT is Present. MCH (RBC) [Entitic mass] 30.8 pg 27.0-32.0 [facility] Work Phone: Nucleated RBC/100 WBC (Bld) [Ratio] 0 % 0-5 [facility] Work Phone: Laboratory - Microbiology an d Antimicrobial susceptibilityon 09-08-2021 Bacteria identified Cx Nom (Bld) No growth in 5 days. [facility] Work Phone: MCHC Auto (RBC) [Mass/Vol]on 09-08-2021 MCHC (RBC) [Mass/Vol] 31.2 g/dL 32-36 [facility] Work Phone: Mucus LM Ql (Urine sed)on Mucus Ql (Urine sed) 0 SEEN /hpf [facility] Work Phone: Nitrite Test strip Ql (U)on 09-08-2021 Nitrite Ql (U) Negative Negative [facility] Work Phone: No Panel Informationon 09-08 Troponin I High Sensitivity 226 pg/mL 3.0-54.0 [facility] Work Phone: Comment on above: Critical Result(s) C alled at: 23:08:48 09/08/2021 by: MARIA T GÓMEZ TO ALONZO ERICKSON. Results read back by same. Please Note: New Test Units and Gender Specific Reference Ranges. For more information see Policy Stat Procedure [place] High Sensitivity Troponin (TNIH) and attachments. Bedside Blood Gas PEEP 5 [facility] Work Phone: Blood Gas Oxygen Percent 100 [facility] Work Phone: Blood Gas Respiration Rate 14 [facility] Work Phone: Blood Gas Sample Site L Radial [facility] Work Phone: Blood Gas Specimen Type ART [facility] Work Phone: Blood Gas Tidal Volume 450 [facility] Work Phone: Blood Gas Total CO2 19 mmol/L [facility] Work Phone: Blood Gas Vent Mode AC [facility] Work Phone: Oxygen Delivery Device Adult Vent [facility] Work Phone: Estimated Creatinine Clearance Calc 39.37 ml/min [facility] Work Phone: Estimated GFR (MDRD) Amer 48 mL/min >60 [facility] Work Phone: Comment on above: GFR Calc Estimated GFR (MDRD) Non-Af Amer 40 mL/min >60 [facility] Work Phone: Comment on above: Non- GFR Calc Urine Transitional Epithelial Cells 0-5 SEEN /hpf [facility] Work Phone: Oxygen (BldA) [Partial press ure]on 09-08-2021 Oxygen (Bld) [Partial pressure] 101 mmHG 75-100 [facility] Work Phone: Platelets bldon 09-08-2021 Platelets (Bld) [#/Vol] 280 10*3/uL 150-450 [facility] Work Phone: Protein Test strip Ql (U)on 09-08-2021 Protein Ql (U) 100 mg/dl Negative [facility] Work Phone: RBC morphologyon 09-08-2021 RBC morphology finding Nom (Bld) NORM C+C NORMAL NORM C&C [facility] Work Phone: Serum or plasma calcium oliver urement (mass/volume)on 09-08-2021 Calcium [Mass/Vol] 9.2 mg/dL 8.5-10.1 [facility] Work Phone: Serum or plasma creatinine m easurement (mass/volume)on 09-08-2021 Creatinine [Mass/Vol] 1.46 mg/dL 0.55-1.02 [facility] Work Phone: Comment on above: The validity of the calculated GFR & GFRAA in patients over 70 years has not been determined. Clinical correlation is essential. Serum or plasma urea nitroge n measurement (mass/volume)on 09-08-2021 Urea nitrogen [Mass/Vol] 25 mg/dL 7-18 [facility] Work Phone: Squamous epithelial cells de tection in urine sediment by light microscopyon 09-08-2021 Epithelial cells.squamous LM Ql (Urine sed) 0 SEEN /hpf [facility] Work Phone: Thin prep Papanicolaou smear with manual screeningon 09-08-2021 Thin prep Papanicolaou smear with manual screening 13 5-15 [facility] Work Phone: Urine blood detectionon RBC Ql (U) 250 /ul Negative [facility] Work Phone: RBC Ql (U) 10-25 SEEN /hpf [facility] Work Phone: Urine clarityon 09-08-2021 Clarity (U) Sl. Cloudy Clear [facility] Work Phone: Urine color determinationon 09-08-2021 Color (U) Yellow Yellow [facility] Work Phone: Urine glucose detectionon Glucose Ql (U) 1000 mg/dl Normal [facility] Work Phone: Urine leukocyte esterase det ection by dipstickon 09-08-2021 Leukocyte esterase Test strip Ql (U) Negative Negative [facility] Work Phone: Urine pHon 09-08-2021 pH (U) 5.0 [pH] [facility] Work Phone: Urine sediment bacteria coun t by microscopy (number/high power field)on 09-08-2021 Bacteria LM.HPF (Urine sed) [#/Area] 1 /[HPF] None Seen [facility] Work Phone: Urine specific gravity measu rementon 09-08-2021 Specific gravity (U) [Rel density] 1.015 [facility] Work Phone: Urobilinogen Auto test strip Ql (U)on 09-08-2021 Urobilinogen Ql (U) Normal mg/dl Normal [facility] Work Phone: pH measurementon 09-08-2021 pH (Unsp spec) 7.22 [pH] 7.35-7.45 [facility] Work Phone: Basophil percentageon 2021 Chloride [Moles/Vol] 116 mmol/L 98-107 [facility] Work Phone: Glucose [Mass/Vol] 159 mg/dL 74-106 [facility] Work Phone: Comment on above: Fasting Glucose resu lt greater than or equal to 126 mg/dL suggests DIABETES MELLITUS per A.D.A. criteria. Potassium [Moles/Vol] 4.2 mmol/L 3.5-5.1 [facility] Work Phone: Sodium [Moles/Vol] 143 mmol/L 136-145 [facility] Work Phone: Glucose Glucometer (BldC) [M ass/Vol]on 07-19-2021 Glucose [Mass/Vol] 222 mg/dL 70-110 [facility] Work Phone: Comment on above: MANAGEMENT OF PATIEN T CARE PER NURSING PROTOCOL Laboratory - Chemistry and C hemistry - challengeon 07-19-2021 CO2 [Moles/Vol] 21.0 mmol/L 21.0-32.0 [facility] Work Phone: Urea nitrogen/Creatinine [Mass ratio] 21.6 mg/mg 10-20 [facility] Work Phone: No Panel Informationon 07-19 Estimated Creatinine Clearance Calc 65.31 ml/min [facility] Work Phone: Estimated GFR (MDRD) Amer 87 mL/min >60 [facility] Work Phone: Comment on above: GFR Calc Estimated GFR (MDRD) Non-Af Amer 72 mL/min >60 [facility] Work Phone: Comment on above: Non- GFR Calc Serum or plasma calcium oliver urement (mass/volume)on 07-19-2021 Calcium [Mass/Vol] 8.4 mg/dL 8.5-10.1 [facility] Work Phone: Serum or plasma creatinine m easurement (mass/volume)on 07-19-2021 Creatinine [Mass/Vol] 0.88 mg/dL 0.55-1.02 [facility] Work Phone: Comment on above: The validity of the calculated GFR & GFRAA in patients over 70 years has not been determined. Clinical correlation is essential. Serum or plasma urea nitroge n measurement (mass/volume)on 07-19-2021 Urea nitrogen [Mass/Vol] 19 mg/dL 7-18 [facility] Work Phone: Thin prep Papanicolaou smear with manual screeningon 07-19-2021 Thin prep Papanicolaou smear with manual screening 6 5-15 [facility] Work Phone: Absolute lymphocyte counton 07-18-2021 Lymphocytes Auto (Unsp spec) [#/Vol] 2.21 10*3/uL 0.83-4.51 [facility] Work Phone: [phone] Basophil percentageon 2021 Basophil percentage 3.9 mg/dL 2.5-4.[address] [facility] Work Phone: Basophils/100 WBC (Bld) 0.3 % 0-1 [facility] Work Phone: Eosinophils/100 WBC (Bld) 0.5 % 0-5 [facility] Work Phone: Neutrophils (Bld) [#/Vol] 1.5 10*3/uL 2.0-7.7 [facility] Work Phone: Neutrophils/100 WBC (Bld) 37.1 % 47-70 [facility] Work Phone: WBC (Bld) [#/Vol] 3.9 10*3/uL 4.4-11.0 [facility] Work Phone: Blood erythrocytes count (nu mber/volume)on 07-18-2021 RBC (Bld) [#/Vol] 3.48 10*6/uL 4.2-5.[address] [facility] Work Phone: Blood hemoglobin measurement (mass/volume)on 07-18-2021 Hemoglobin (Bld) [Mass/Vol] 10.9 g/dL 12.0-15.0 [facility] Work Phone: Blood lymphocytes/100 leukoc yteson 07-18-2021 Lymphocytes/100 WBC (Bld) 56.2 % 19-41 [facility] Work Phone: Blood monocytes/100 leukocyt eson 07-18-2021 Monocytes/100 WBC (Bld) 5.6 % 0-10 [facility] Work Phone: Blood platelet mean volumeon 07-18-2021 Platelet mean volume (Bld) [Entitic vol] 10.8 fL 6.2-12.0 [facility] Work Phone: Determination of erythrocyte mean corpuscular volume (MCV)on 07-18-2021 MCV (RBC) [Entitic vol] 96.3 fL 81-99 [facility] Work Phone: Hematocrit Auto (Bld) [Volum e fraction]on 07-18-2021 Hematocrit (Bld) [Volume fraction] 33.5 % 37-47 [facility] Work Phone: Laboratory - Chemistry and C hemistry - challengeon 07-18-2021 Free T4 [Mass/Vol] 1.34 ng/dL 0.76-1.46 [facility] Work Phone: Laboratory - Hematology and Cell countson 07-18-2021 Erythrocyte distribution width (RBC) [Entitic vol] 49.4 fL 35.1-43.9 [facility] Work Phone: Erythrocyte distribution width (RBC) [Ratio] 14.1 % 11.6-14.6 [facility] Work Phone: Immature granulocytes/100 WBC (Bld) 0.300 % 0.0-0.9 [facility] Work Phone: Comment on above: IG% - Immature Granu locytes (promyelocytes, myelocytes and metamyelocytes) > 1% indicates that a LEFT SHIFT is Present. MCH (RBC) [Entitic mass] 31.3 pg 27.0-32.0 [facility] Work Phone: Nucleated RBC/100 WBC (Bld) [Ratio] 0 % 0-5 [facility] Work Phone: MCHC Auto (RBC) [Mass/Vol]on 07-18-2021 MCHC (RBC) [Mass/Vol] 32.5 g/dL 32-36 [facility] Work Phone: Platelets bldon 07-18-2021 Platelets (Bld) [#/Vol] 159 10*3/uL 150-450 [facility] Work Phone: Basophil percentageon 2021 Basophil percentage 5-10 [facility] Work [facility]: Lactate [Moles/Vol] 1.2 mmol/L 0.4-2.0 [place] [facility] Work Phone: Bilirubin [Mass/Vol] 0.50 mg/dL 0.20-1.[address] [facility] Work Phone: Comment on above: For patients on eltr ombopag therapy, use of Dimension [place] TBIL is not recommended. Protein [Mass/Vol] 8.1 g/dL 6.4-8.2 [place] [facility] Work Phone: Bilirubin Test strip Ql (U)o n 07-17-2021 Bilirubin Ql (U) Negative Negative [facility] Work Phone: CNOVon 07-17-2021 CNOV Office Visit (UCWSTR ) -- PITO HENDRIX ([id number]) 1970 F Date Time Provider Department 07/17/21 11:30 AM JEISON PONCE [facility] During your visit today, we recorded the following information about you: Temperature Pulse Blood pressure Weight 97.5 degrees 55/minute 90/58 89.7 kg Jeison Ponce APRN.FASHION ARTIST 07/17/2021 11:49 AM Signed Subjective HPI Nontoxic-appearing [...] - ICD (more content not included)... Normal [facility] Ketones Test strip Ql (U)on 07-17-2021 Ketones Ql (U) Negative Negative [facility] Work Phone: Laboratory - Chemistry and C hemistry - challengeon 07-17-2021 ALP [Catalytic activity/Vol] 76 U/L 45-117 [facility] Work Phone: ALT [Catalytic activity/Vol] 25 U/L 13-56 [facility] Work Phone: Globulin (S) [Mass/Vol] 4.4 g/dL 2.2-4.2 [facility] Work Phone: Natriuretic peptide B (Bld) [Mass/Vol] 39.8 pg/mL 0-100 [facility] Work Phone: Mucus LM Ql (Urine sed)on Mucus Ql (Urine sed) 0 SEEN /hpf [facility] Work Phone: Nitrite Test strip Ql (U)on 07-17-2021 Nitrite Ql (U) Negative Negative [facility] Work Phone: No Panel Informationon 07-17 Troponin I High Sensitivity 13 pg/mL 3.0-54.0 [facility] Work Phone: Comment on above: Please Note: [place] t Units and Gender Specific Reference Ranges. For more information see Policy Stat Procedure [place] High Sensitivity Troponin (TNIH) and attachments. D-Dimer Quantitative (PE/DVT) 0.70 FEU/ug/m 0.27-0.49 [facility] Work Phone: Comment on above: D-Dimer ELEVATED (>0 .49): Additional studies and clinicalassessments are indicated to conclude diagnosis of:Deep Vein Thrombosis (DVT) or Pulmonary Embolism (PE)RESULTS CALLED TO KATHY MARKS RN[] 07/17/21 1312 Josefa Kumar.REPORT READ BACK BY []. Protein Test strip Ql (U)on 07-17-2021 Protein Ql (U) Negative Negative [facility] Work Phone: Serum or plasma albumin oliver urement (mass/volume)on 07-17-2021 Albumin [Mass/Vol] 3.7 g/dL 3.2-5.0 [facility] Work Phone: Serum or plasma albumin/glob ulin mass ratioon 07-17-2021 Albumin/Globulin [Mass ratio] 0.8 {ratio} 0.9-2.4 [facility] Work Phone: Squamous epithelial cells de tection in urine sediment by light microscopyon 07-17-2021 Epithelial cells.squamous LM Ql (Urine sed) 0-5 SEEN /hpf [facility] Work Phone: Thin prep Papanicolaou smear with manual screeningon 07-17-2021 Thin prep Papanicolaou smear with manual screening 18 U/L 15-37 [facility] Work Phone: Urine blood detectionon 07-07 RBC Ql (U) Negative Negative [facility] Work Phone: RBC Ql (U) 0 SEEN /hpf [facility] Work Phone: Urine clarityon 07-17-2021 Clarity (U) Clear Clear [facility] Work Phone: Urine color determinationon 07-17-2021 Color (U) Yellow Yellow [facility] Work Phone: Urine glucose detectionon Glucose Ql (U) Normal mg/dl Normal [facility] Work Phone: Urine leukocyte esterase det ection by dipstickon 07-17-2021 Leukocyte esterase Test strip Ql (U) 100 /ul Negative [facility] Work Phone: Urine pHon 07-17-2021 pH (U) 5.0 [pH] [facility] Work Phone: Urine sediment bacteria coun t by microscopy (number/high power field)on 07-17-2021 Bacteria LM.HPF (Urine sed) [#/Area] RARE /hpf None Seen [facility] Work Phone: Urine specific gravity measu rementon 07-17-2021 Specific gravity (U) [Rel density] 1.010 [facility] Work Phone: Urobilinogen Auto test strip Ql (U)on 07-17-2021 Urobilinogen Ql (U) Normal mg/dl Normal [facility] Work Phone: CNPNon 07-10-2021 CNPN Telephone (UCWSTR) -- PITO HENDRIX ([id number]) 1970 F Date Time Provider Department 07/10/21 IKKI JEFFREY During your visit today, we recorded the [...] Encounter Status:Closed by KIKI JEFFREY on 07/10/21 [facility] CNOVon 07-09-2021 CN Office Visit (UCWSTR ) -- PITO HENDRIX ([id number]) 1970 F Date Time Provider Department 07/09/21 9:00 AM MAX LIVE [facility] During your visit today, we recorded the following information about you: Temperature Pulse Respiration Blood pressure 98.2 degrees 73/minute 18/minute 112/78 Weight 93.4 kg Max Live APRN.FASHION ARTIST 07/09/2021 9:31 AM Signed CC: Patient presents [...] Patient agreeable to treatment plan. Max Live APRN.FASHION ARTIST Referring Provider: SELF [[id number]] Allergies As of Date: 07/09/2021 Noted Allergy Reaction AUGMENTIN (AMOXICILLIN-POT CLAVUL*07/17/2017 11 - Vomiting Date Reviewed: 07/09/2021 Reviewed by: Estee Peace LPN - Fully Assessed Reason for Visit: Cough [28] Cmt: cough, chills, loss of voice and ST x 2 days Primary Visit Diagnosis:Suspected COVID-19 virus infection [Z20.822] Order(s):COVID WITH FLUA+B, ROUTINE [SQCOVFLU] Order #: [id number] FUTURE Prescriptions as of 07/09/2021 - aspirin, enteric coated (ASPIRIN, ENTERIC COATED) 81 mg EC tablet Take 81 mg by mouth once daily. - atorvastatin (LIPITOR) 40 mg tablet Take 40 mg by mouth daily at bedtime. - carvedilol (COREG) 6.25 mg tablet - clopidogrel (PLAVIX) 75 mg tablet - cyclobenzaprine (FLEXER (more content not included)... Normal [facility] COVID w FLU A+B Routon 07-09 Influenza A PCR Negative Normal [facility] Comment on above: Performed By: #### C OVFLU #### [place] [address] Influenza B PCR Negative Normal [facility] Comment on above: Performed By: #### C OVFLU #### [place] [address] SARS-CoV-2 (COVID-19) RNA ROSALIA+probe Ql (Unsp spec) UPPER RESPIRATORY TRACT SWAB Normal [facility] Comment on above: Performed By: #### C OVFLU #### [place] [address] SARS-CoV-2 (COVID-19) RNA ROSALIA+probe Ql (Unsp spec) Positive for COVID19 (SARS CoV2) by RT-PCR or equivalent method. Critically abnormal Negative for COVID19 (SARS CoV2) by RT-PCR or equivalent method. [facility] Comment on above: Result Comment: This test was developed and its performance characteristics determined by [facility]'s [facility] [place]. This test has been authorized by FDA under an Emergency Use Authorization (EUA). This test has been validated in accordance with the FDA's Guidance Document Policy for Diagnostics Testing in Laboratories Certified to Perform High Complexity Testing under CLIA prior to Emergency use Authorization for Coronavirus Disease 2019 during the Public Health Emergency issued on August 04, 2019. Test performed by [facility], [facility] [place], [address] [place] [id number]. Performed By: #### C OVFLU #### [place] [address] No Panel Informationon 07-07 Miscellaneous Test See comment [facility] Work Phone: Comment on above: TEST RESULT LIMITSTh yrotropin Receptor Ab, Serum <1.10 IU/L 0.00-1.75 ___ TESTING PERFORMED AT [facility]. ORIGINAL REPORT ON FILE IN LAB CONTAINS ADDITIONAL TEST SITE INFORMATION. Thyroglobulin Antibody < 1.0 IU/mL [facility] Work Phone: Comment on above: Thyroglobulin Antibo dy measured by Cherelle CoulterMethodology Thyroglobulin Level 26.3 ng/mL [facility] Work Phone: Comment on above: According to the Critical access hospital Academy of Clinical Biochemistry,the reference interval for Thyroglobulin (TG) should berelated to euthyroid patients and not for patients whounderwent thyroidectomy. TG reference intervals for thesepatients depend on the residual mass of the thyroid tissueleft after surgery. Establishing a post-operative baselineis recommended. The assay limit of quantitation is 0.1ng/mLThyroglobulin measured by Cherelle [place] [employer] Thyroid Stimulating Hormone (TSH) 0.04 uIU/mL 0.358-3.74 [facility] Work Phone: Serum or plasma thyroperoxid ase antibody assay (units/volume)on 07-07-2021 TPO Ab Qn [IU]/mL [facility] Work Phone: Comment on above: Performed at: [facility] [employer] [id number] Director: Vargas Kim PhD, Phone: [phone] Absolute lymphocyte counton 06-07-2021 Lymphocytes Auto (Unsp spec) [#/Vol] 1.60 10*3/uL 0.83-4.51 [facility] Work Phone: Basophil percentageon 2021 Basophils/100 WBC (Bld) 0.4 % 0-1 [facility] Work Phone: Chloride [Moles/Vol] 105 mmol/L 98-107 [facility] Work Phone: Eosinophils/100 WBC (Bld) 1.3 % 0-5 [facility] Work Phone: Glucose [Mass/Vol] 441 mg/dL 74-106 [facility] Work Phone: Comment on above: Glucose result great er than or equal to 200 mg/dLsuggests DIABETES MELLITUS per A.D.A. criteria.Please note revised GLUCOSE reference range effective 2017. Neutrophils (Bld) [#/Vol] 3.3 10*3/uL 2.0-7.7 [facility] Work Phone: Neutrophils/100 WBC (Bld) 61.9 % 47-70 [facility] Work Phone: Potassium [Moles/Vol] 3.3 mmol/L 3.5-5.1 [facility] Work Phone: Comment on above: Slight Hemolysis, Re sult may be falsely increased. Sodium [Moles/Vol] 137 mmol/L 136-145 [facility] Work Phone: WBC (Bld) [#/Vol] 5.3 10*3/uL 4.4-11.0 [facility] Work Phone: Blood erythrocytes count (nu mber/volume)on 06-07-2021 RBC (Bld) [#/Vol] 4.29 10*6/uL 4.2-5.[address] [facility] Work Phone: Blood hemoglobin measurement (mass/volume)on 06-07-2021 Hemoglobin (Bld) [Mass/Vol] 13.3 g/dL 12.0-15.0 [facility] Work Phone: Blood lymphocytes/100 leukoc yteson 06-07-2021 Lymphocytes/100 WBC (Bld) 30.0 % 19-41 [facility] Work Phone: Blood monocytes/100 leukocyt eson 06-07-2021 Monocytes/100 WBC (Bld) 6.2 % 0-10 [facility] Work Phone: Blood platelet mean volumeon 06-07-2021 Platelet mean volume (Bld) [Entitic vol] 10.8 fL 6.2-12.0 [facility] Work Phone: Determination of erythrocyte mean corpuscular volume (MCV)on 06-07-2021 MCV (RBC) [Entitic vol] 89.5 fL 81-99 [facility] Work Phone: Hematocrit Auto (Bld) [Volum e fraction]on 06-07-2021 Hematocrit (Bld) [Volume fraction] 38.4 % 37-47 [facility] Work Phone: INR in Blood by Coagulation assayon 06-07-2021 INR Coag (Bld) [Relative time] 1.0 {INR} [facility] Work Phone: Laboratory - Chemistry and C hemistry - challengeon 06-07-2021 CO2 [Moles/Vol] 23.0 mmol/L 21.0-32.0 [facility] Work Phone: Urea nitrogen/Creatinine [Mass ratio] 17.5 mg/mg 10-20 [facility] Work Phone: Laboratory - Coagulationon 0 06-07-2021 PT Coag (PPP) [Time] 12.1 s 11.7-14.9 [facility] Work Phone: Laboratory - Hematology and Cell countson 06-07-2021 Erythrocyte distribution width (RBC) [Entitic vol] 44.4 fL 35.1-43.9 [facility] Work Phone: Erythrocyte distribution width (RBC) [Ratio] 13.8 % 11.6-14.6 [facility] Work Phone: Immature granulocytes/100 WBC (Bld) 0.200 % 0.0-0.9 [facility] Work Phone: Comment on above: IG% - Immature Granu locytes (promyelocytes, myelocytes and metamyelocytes) > 1% indicates that a LEFT SHIFT is Present. MCH (RBC) [Entitic mass] 31.0 pg 27.0-32.0 [facility] Work Phone: Nucleated RBC/100 WBC (Bld) [Ratio] 0 % 0-5 [facility] Work Phone: MCHC Auto (RBC) [Mass/Vol]on 06-07-2021 MCHC (RBC) [Mass/Vol] 34.6 g/dL 32-36 [facility] Work Phone: No Panel Informationon 06-07 Troponin I High Sensitivity 11 pg/mL 3.0-54.0 [facility] Work Phone: Comment on above: Please Note: [place] Units and Gender Specific Reference Ranges. For more information see Policy Stat Procedure [place] High Sensitivity Troponin (TNIH) and attachments. Estimated Creatinine Clearance Calc 50.41 ml/min [facility] Work Phone: Estimated GFR (MDRD) Amer 65 mL/min >60 [facility] Work Phone: Comment on above: GFR Calc Estimated GFR (MDRD) Non-Af Amer 53 mL/min >60 [facility] Work Phone: Comment on above: Non- GFR Calc Platelets bldon 06-07-2021 Platelets (Bld) [#/Vol] 227 10*3/uL 150-450 [facility] Work Phone: Serum or plasma calcium oliver urement (mass/volume)on 06-07-2021 Calcium [Mass/Vol] 9.5 mg/dL 8.5-10.1 [facility] Work Phone: Serum or plasma creatinine m easurement (mass/volume)on 06-07-2021 Creatinine [Mass/Vol] 1.14 mg/dL 0.55-1.02 [facility] Work Phone: Comment on above: The validity of the calculated GFR & GFRAA in patients over 70 years has not been determined. Clinical correlation is essential. Serum or plasma urea nitroge n measurement (mass/volume)on 06-07-2021 Urea nitrogen [Mass/Vol] 20 mg/dL 7-18 [facility] Work Phone: Thin prep Papanicolaou smear with manual screeningon 06-07-2021 Thin prep Papanicolaou smear with manual screening 9 5-15 [facility] Work Phone: Absolute lymphocyte counton 06-04-2021 Lymphocytes Auto (Unsp spec) [#/Vol] 2.23 10*3/uL 0.83-4.51 [facility] Work Phone: Basophil percentageon 2020 Chloride [Moles/Vol] 105 mmol/L 98-107 [facility] Work Phone: Eosinophils/100 WBC (Bld) 0.6 % 0-5 [facility] Work Phone: Glucose [Mass/Vol] 378 mg/dL 74-106 [facility] Work Phone: Comment on above: Glucose result great er than or equal to 200 mg/dLsuggests DIABETES MELLITUS per A.D.A. criteria.Please note revised GLUCOSE reference range effective 2017. Neutrophils (Bld) [#/Vol] 3.8 10*3/uL 2.0-7.7 [facility] Work Phone: Potassium [Moles/Vol] 3.2 mmol/L 3.5-5.1 [facility] Work Phone: Sodium [Moles/Vol] 137 mmol/L 136-145 [facility] Work Phone: WBC (Bld) [#/Vol] 6.4 10*3/uL 4.4-11.0 [facility] Work Phone: Blood erythrocytes count (nu mber/volume)on 06-04-2021 RBC (Bld) [#/Vol] 4.18 10*6/uL 4.2-5.[address] [facility] Work Phone: Blood hemoglobin measurement (mass/volume)on 06-04-2021 Hemoglobin (Bld) [Mass/Vol] 13.1 g/dL 12.0-15.0 [facility] Work Phone: Blood lymphocytes/100 leukoc yteson 06-04-2021 Lymphocytes/100 WBC (Bld) 34.6 % 19-41 [facility] Work Phone: Blood monocytes/100 leukocyt eson 06-04-2021 Monocytes/100 WBC (Bld) 5.9 % 0-10 [facility] Work Phone: Blood platelet mean volumeon 06-04-2021 Platelet mean volume (Bld) [Entitic vol] 10.8 fL 6.2-12.0 [facility] Work Phone: Determination of erythrocyte mean corpuscular volume (MCV)on 06-04-2021 MCV (RBC) [Entitic vol] 90.7 fL 81-99 [facility] Work Phone: Erythrocyte sedimentation ra samia 06-04-2021 ESR (Bld) [Velocity] 16 mm/h 0-30 [facility] Work Phone: Hematocrit Auto (Bld) [Volum e fraction]on 06-04-2021 Hematocrit (Bld) [Volume fraction] 37.9 % 37-47 [facility] Work Phone: Laboratory - Chemistry and C hemistry - challengeon 06-04-2021 CO2 [Moles/Vol] 24.0 mmol/L 21.0-32.0 [facility] Work Phone: Magnesium [Mass/Vol] 2.1 mg/dL 1.6-2.6 [facility] Work Phone: Urea nitrogen/Creatinine [Mass ratio] 16.2 mg/mg 10-20 [facility] Work Phone: Laboratory - Hematology and Cell countson 06-04-2021 Basophils/100 WBC (Unsp spec) 0.3 % 0-1 [facility] Work Phone: Erythrocyte distribution width (RBC) [Entitic vol] 44.9 fL 35.1-43.9 [facility] Work Phone: Erythrocyte distribution width (RBC) [Ratio] 13.7 % 11.6-14.6 [facility] Work Phone: Immature granulocytes/100 WBC (Bld) 0.300 % 0.0-0.9 [facility] Work Phone: Comment on above: IG% - Immature Granu locytes (promyelocytes, myelocytes and metamyelocytes) > 1% indicates that a LEFT SHIFT is Present. MCH (RBC) [Entitic mass] 31.3 pg 27.0-32.0 [facility] Work Phone: Neutrophils/100 WBC (Bld) 58.3 % 47-70 [facility] Work Phone: Nucleated RBC/100 WBC (Bld) [Ratio] 0 % 0-5 [facility] Work Phone: MCHC Auto (RBC) [Mass/Vol]on 06-04-2021 MCHC (RBC) [Mass/Vol] 34.6 g/dL 32-36 [facility] Work Phone: No Panel Informationon 06-04 D-Dimer Quantitative (PE/DVT) 0.58 FEU/ug/m 0.27-0.49 [facility] Work Phone: Comment on above: D-Dimer ELEVATED (>0 .49): Additional studies and clinicalassessments are indicated to conclude diagnosis of:Deep Vein Thrombosis (DVT) or Pulmonary Embolism (PE) Estimated Creatinine Clearance Calc 51.78 ml/min [facility] Work Phone: Estimated GFR (MDRD) Amer 67 mL/min >60 [facility] Work Phone: Comment on above: GFR Calc Estimated GFR (MDRD) Non-Af Amer 55 mL/min >60 [facility] Work Phone: Comment on above: Non- GFR Calc Troponin I High Sensitivity 13 pg/mL 3.0-54.0 [facility] Work Phone: Comment on above: Please Note: [place] Units and Gender Specific Reference Ranges. For more information see Policy Stat Procedure [place] High Sensitivity Troponin (TNIH) and attachments. SARS-CoV-2 Antigen (Rapid) [facility] Work Phone: Platelets bldon 06-04-2021 Platelets (Bld) [#/Vol] 215 10*3/uL 150-450 [facility] Work Phone: Serum or plasma C reactive p rotein measurement (mass/volume)on 06-04-2021 CRP [Mass/Vol] 6.42 mg/L 0.0-3.0 [facility] Work Phone: Comment on above: C-Reactive Protein ( CRP) provides useful information for thediagnosis, therapy and monitoring of inflammatory processesand associated diseases. For the evaluation of Relative Riskfor Cardiovascular Disease, a High Sensitivity CRP (HSCRP)should be ordered. Serum or plasma calcium oliver urement (mass/volume)on 06-04-2021 Calcium [Mass/Vol] 9.4 mg/dL 8.5-10.1 [facility] Work Phone: Serum or plasma creatinine m easurement (mass/volume)on 06-04-2021 Creatinine [Mass/Vol] 1.11 mg/dL 0.55-1.02 [facility] Work Phone: Comment on above: The validity of the calculated GFR & GFRAA in patients over 70 years has not been determined. Clinical correlation is essential. Serum or plasma urea nitroge n measurement (mass/volume)on 06-04-2021 Urea nitrogen [Mass/Vol] 18 mg/dL 7-18 [facility] Work Phone: Thin prep Papanicolaou smear with manual screeningon 06-04-2021 Thin prep Papanicolaou smear with manual screening 8 5-15 [facility] Work Phone: Absolute lymphocyte counton 05-25-2021 Lymphocytes Auto (Unsp spec) [#/Vol] 1.81 10*3/uL 0.83-4.51 [facility] Work Phone: Basophil percentageon 2020 Chloride [Moles/Vol] 108 mmol/L 98-107 [facility]: Eosinophils/100 WBC (Bld) 0.8 % 0-5 [facility] Work Phone: [phone] Glucose [Mass/Vol] 144 mg/dL 74-106 [facility] Work Phone: Comment on above: Fasting Glucose resu lt greater than or equal to 126 mg/dL suggests DIABETES MELLITUS per A.D.A. criteria.Please note revised GLUCOSE reference range effective 2017. Neutrophils (Bld) [#/Vol] 2.9 10*3/uL 2.0-7.7 [facility] Work Phone: Potassium [Moles/Vol] 3.5 mmol/L 3.5-5.1 [facility] Work Phone: [phone] Sodium [Moles/Vol] 140 mmol/L 136-145 [facility] Work Phone: WBC (Bld) [#/Vol] 5.2 10*3/uL 4.4-11.0 [facility] Work Phone: Blood erythrocytes count (nu mber/volume)on 05-25-2021 RBC (Bld) [#/Vol] 3.73 10*6/uL 4.2-5.[address] [facility] Work Phone: [phone] Blood hemoglobin measurement (mass/volume)on 05-25-2021 Hemoglobin (Bld) [Mass/Vol] 11.6 g/dL 12.0-15.0 [facility] Work Phone: [phone] Blood lymphocytes/100 leukoc yteson 05-25-2021 Lymphocytes/100 WBC (Bld) 34.7 % 19-41 [facility] Work Phone: [phone] Blood monocytes/100 leukocyt eson 05-25-2021 Monocytes/100 WBC (Bld) 7.7 % 0-10 [facility] Work Phone: Blood platelet mean volumeon 05-25-2021 Platelet mean volume (Bld) [Entitic vol] 10.9 fL 6.2-12.0 [facility] Work Phone: Determination of erythrocyte mean corpuscular volume (MCV)on 05-25-2021 MCV (RBC) [Entitic vol] 92.2 fL 81-99 [facility] Work Phone: Glucose Glucometer (BldC) [M ass/Vol]on 05-25-2021 Glucose [Mass/Vol] 107 mg/dL 70-110 [facility] Work Phone: Comment on above: MANAGEMENT OF PATIEN T CARE PER NURSING PROTOCOL Hematocrit Auto (Bld) [Volum e fraction]on 05-25-2021 Hematocrit (Bld) [Volume fraction] 34.4 % 37-47 [facility] Work Phone: Laboratory - Chemistry and C hemistry - challengeon 05-25-2021 CO2 [Moles/Vol] 24.0 mmol/L 21.0-32.0 [facility] Work Phone: Natriuretic peptide B (Bld) [Mass/Vol] 48.7 pg/mL 0-100 [facility] Work Phone: Urea nitrogen/Creatinine [Mass ratio] 26.1 mg/mg 10-20 [facility] Work Phone: Laboratory - Coagulationon 1 07-26-2020 aPTT Coag (Bld) [Time] 33.3 s 24.1-36.2 [facility] Work Phone: Laboratory - Hematology and Cell countson 05-25-2021 Basophils/100 WBC (Unsp spec) 0.4 % 0-1 [facility] Work Phone: Erythrocyte distribution width (RBC) [Entitic vol] 47.4 fL 35.1-43.9 [facility] Work Phone: Erythrocyte distribution width (RBC) [Ratio] 14.0 % 11.6-14.6 [facility] Work Phone: Immature granulocytes/100 WBC (Bld) 0.200 % 0.0-0.9 [facility] Work Phone: Comment on above: IG% - Immature Granu locytes (promyelocytes, myelocytes and metamyelocytes) > 1% indicates that a LEFT SHIFT is Present. MCH (RBC) [Entitic mass] 31.1 pg 27.0-32.0 [facility] Work Phone: Neutrophils/100 WBC (Bld) 56.2 % 47-70 [facility] Work Phone: Nucleated RBC/100 WBC (Bld) [Ratio] 0 % 0-5 [facility] Work Phone: MCHC Auto (RBC) [Mass/Vol]on 05-25-2021 MCHC (RBC) [Mass/Vol] 33.7 g/dL 32-36 [facility] Work Phone: No Panel Informationon 05-25 Estimated Creatinine Clearance Calc 49.98 ml/min [facility] Work Phone: Estimated GFR (MDRD) Amer 64 mL/min >60 [facility] Work Phone: Comment on above: GFR Calc Estimated GFR (MDRD) Non-Af Amer 53 mL/min >60 [facility] Work Phone: Comment on above: Non- GFR Calc Platelets bldon 05-25-2021 Platelets (Bld) [#/Vol] 185 10*3/uL 150-450 [facility] Work Phone: Serum or plasma calcium oliver urement (mass/volume)on 05-25-2021 Calcium [Mass/Vol] 9.2 mg/dL 8.5-10.1 [facility] Work Phone: Serum or plasma creatinine m easurement (mass/volume)on 05-25-2021 Creatinine [Mass/Vol] 1.15 mg/dL 0.55-1.02 [facility] Work Phone: Comment on above: The validity of the calculated GFR & GFRAA in patients over 70 years has not been determined. Clinical correlation is essential. Serum or plasma urea nitroge n measurement (mass/volume)on 05-25-2021 Urea nitrogen [Mass/Vol] 30 mg/dL 7-18 [facility] Work Phone: Thin prep Papanicolaou smear with manual screeningon 05-25-2021 Thin prep Papanicolaou smear with manual screening 8 5-15 [facility] Work Phone: No Panel Informationon 05-24 Troponin I High Sensitivity 104 pg/mL 3.0-54.0 [facility] Work Phone: Comment on above: Please Note: [place] Units and Gender Specific Reference Ranges. For more information see Policy Stat Procedure [place] High Sensitivity Troponin (TNIH) and attachments. INR in Blood by Coagulation assayon 05-22-2021 INR Coag (Bld) [Relative time] 1.0 {INR} [facility] Work Phone: Laboratory - Coagulationon 1 07-23-2020 PT Coag (PPP) [Time] 12.5 s 11.7-14.9 [facility] Work Phone: Laboratory - Microbiology an d Antimicrobial susceptibilityon 05-22-2021 SARS-CoV-2 (COVID-19) RNA ROSALIA+probe Ql (Unsp spec) Not detected Not Detect [facility] Work Phone: Comment on above: Normal Reference Ran ge: Not DetectedMethod:(RT-PCR) real-time reverse transcriptase PCRLuminex NADEEN Instrument*The Food and Drug Administration (FDA) has issued an Emergency Use Authorization (EAU) for the Peerflix SARS-CoV-2 Assay for the rapid detection of [...] 05-22 D-Dimer Quantitative (PE/DVT) 1.04 FEU/ug/m 0.27-0.49 [facility] Work Phone: Comment on above: D-Dimer ELEVATED (>0 .49): Additional studies and clinicalassessments are indicated to conclude diagnosis of:Deep Vein Thrombosis (DVT) or Pulmonary Embolism (PE)CRITICAL VALUE VERIFIED. CALLED TO SIS KRISHNAN (ER)05/22/212027 Joshua Gonzáles.RESULTS READ BACK BY SAME. SARS-CoV-2 Antigen (Rapid) [facility] Work Phone: Basophil percentageon 2020 Bilirubin [Mass/Vol] 0.70 mg/dL 0.20-1.00 [facility] Work Phone: Comment on above: For patients on eltr ombopag therapy, use of Dimension [place] TBIL is not recommended. Chloride [Moles/Vol] 110 mmol/L 98-107 [facility] Work Phone: Cholesterol [Mass/Vol] 105 mg/dL <200 [facility] Work Phone: Comment on above: <200 mg/dL Desirable 200-240 mg/dL Borderline >240 mg/dL High Risk Glucose [Mass/Vol] 230 mg/dL 74-106 [facility] Work Phone: Comment on above: Glucose result great er than or equal to 200 mg/dLsuggests DIABETES MELLITUS per A.D.A. criteria.Please note revised GLUCOSE reference range effective 2017. Potassium [Moles/Vol] 3.9 mmol/L 3.5-5.1 [facility] Work Phone: Protein [Mass/Vol] 6.3 g/dL 6.4-8.2 [facility] Work Phone: Sodium [Moles/Vol] 140 mmol/L 136-145 [facility] Work Phone: Triglyceride [Mass/Vol] 140 mg/dL [facility] Work Phone: Comment on above: The drugs N-Acetylcy steine and Metamizole may falsely depress this assay.Serum Triglycerides Reference Interval Normal <150 mg/dL Borderline high 150 - 199 mg/dL High 200 - 499 mg/dL Very High > or = 500 mg/dL WBC (Bld) [#/Vol] 5.2 10*3/uL 4.4-11.0 [facility] Work Phone: Blood erythrocytes count (nu mber/volume)on 05-20-2021 RBC (Bld) [#/Vol] 3.80 10*6/uL 4.2-5.4 [facility] Work Phone: Blood hemoglobin measurement (mass/volume)on 05-20-2021 Hemoglobin (Bld) [Mass/Vol] 11.6 g/dL 12.0-15.0 [facility] Work Phone: Blood platelet mean volumeon 05-20-2021 Platelet mean volume (Bld) [Entitic vol] 10.5 fL 6.2-12.0 [facility] Work Phone: Determination of erythrocyte mean corpuscular volume (MCV)on 05-20-2021 MCV (RBC) [Entitic vol] 93.9 fL 81-99 [facility] Work Phone: Hematocrit Auto (Bld) [Volum e fraction]on 05-20-2021 Hematocrit (Bld) [Volume fraction] 35.7 % 37-47 [facility] Work Phone: Laboratory - Chemistry and C hemistry - challengeon 05-20-2021 ALP [Catalytic activity/Vol] 57 U/L 45-117 [facility] Work Phone: ALT [Catalytic activity/Vol] 21 U/L 13-56 [facility] Work Phone: CO2 [Moles/Vol] 23.0 mmol/L 21.0-32.0 [facility] Work Phone: Globulin (S) [Mass/Vol] 3.6 g/dL 2.2-4.2 [facility] Work Phone: Urea nitrogen/Creatinine [Mass ratio] 18.5 mg/mg 10-20 [facility] Work Phone: Laboratory - Hematology and Cell countson 05-20-2021 Erythrocyte distribution width (RBC) [Entitic vol] 46.7 fL 35.1-43.9 [facility] Work Phone: Erythrocyte distribution width (RBC) [Ratio] 13.6 % 11.6-14.6 [facility] Work Phone: MCH (RBC) [Entitic mass] 30.5 pg 27.0-32.0 [facility] Work Phone: MCHC Auto (RBC) [Mass/Vol]on 05-20-2021 MCHC (RBC) [Mass/Vol] 32.5 g/dL 32-36 [facility] Work Phone: No Panel Informationon 05-20 Estimated Creatinine Clearance Calc 70.95 ml/min [facility] Work Phone: Estimated GFR (MDRD) Amer 96 mL/min >60 [facility] Work Phone: Comment on above: GFR Calc Estimated GFR (MDRD) Non-Af Amer 79 mL/min >60 [facility] Work Phone: Comment on above: Non- GFR Calc Platelets bldon 05-20-2021 Platelets (Bld) [#/Vol] 171 10*3/uL 150-450 [facility] Work Phone: Serum or plasma albumin oliver urement (mass/volume)on 05-20-2021 Albumin [Mass/Vol] 2.7 g/dL 3.2-5.0 [facility] Work Phone: Serum or plasma albumin/glob ulin mass ratioon 05-20-2021 Albumin/Globulin [Mass ratio] 0.8 {ratio} 0.9-2.4 [facility] Work Phone: Serum or plasma calcium oliver urement (mass/volume)on 05-20-2021 Calcium [Mass/Vol] 8.8 mg/dL 8.5-10.1 [facility] Work Phone: Serum or plasma cholesterol in HDL measurement (mass/volume)on 05-20-2021 Cholesterol in HDL [Mass/Vol] 41 mg/dL [facility] Work Phone: Comment on above: The drugs N-Acetylcy steine and Metamizole may falsely depress this assay. Reference Range HDL <40 mg/dL Low HDL Cholesterol HDL >or= 60 mg/dL High HDL Cholesterol Serum or plasma cholesterol in VLDL measurement (mass/volume)on 05-20-2021 Cholesterol in VLDL [Mass/Vol] 28 mg/dL 5-40 [facility] Work Phone: Serum or plasma creatinine m easurement (mass/volume)on 05-20-2021 Creatinine [Mass/Vol] 0.81 mg/dL 0.55-1.02 [facility] Work Phone: Comment on above: The validity of the calculated GFR & GFRAA in patients over 70 years has not been determined. Clinical correlation is essential. Serum or plasma low density lipoprotein (LDL) cholesterol measurement (mass/volume)on 05-20-2021 Cholesterol in LDL [Mass/Vol] 36 mg/dL 0-130 [facility] Work Phone: Serum or plasma urea nitroge n measurement (mass/volume)on 05-20-2021 Urea nitrogen [Mass/Vol] 15 mg/dL 7-18 [facility] Work Phone: Thin prep Papanicolaou smear with manual screeningon 05-20-2021 Thin prep Papanicolaou smear with manual screening 17 U/L 15-37 [facility] Work Phone: Thin prep Papanicolaou smear with manual screening 7 5-15 [facility] Work Phone: Whole blood hemoglobin A1c/t otal hemoglobin ratio (mass fraction)on 05-20-2021 HbA1c (Bld) [Mass fraction] 9.6 % 3.8-5.6 [facility] Work Phone: Comment on above: Normal < 5.7 % Predi abetic 5.7 - 6.4 % Diabetic >or= 6.5 % Please note range changes. Absolute lymphocyte counton 05-19-2021 Lymphocytes Auto (Unsp spec) [#/Vol] 2.94 10*3/uL 0.83-4.51 [facility] Work Phone: Basophil percentageon 2020 Eosinophils/100 WBC (Bld) 1.0 % 0-5 [facility] Work Phone: Neutrophils (Bld) [#/Vol] 1.8 10*3/uL 2.0-7.7 [facility] Work Phone: Blood lymphocytes/100 leukoc yteson 05-19-2021 Lymphocytes/100 WBC (Bld) 56.9 % 19-41 [facility] Work Phone: Blood monocytes/100 leukocyt eson 05-19-2021 Monocytes/100 WBC (Bld) 6.4 % 0-10 [facility] Work Phone: [phone] Laboratory - Chemistry and C hemistry - challengeon 05-19-2021 Magnesium [Mass/Vol] 2.1 mg/dL 1.6-2.6 [facility] Work Phone: Laboratory - Coagulationon 1 07-20-2020 aPTT Coag (Bld) [Time] 133.7 s 24.1-36.2 [facility] Work Phone: Laboratory - Hematology and Cell countson 05-19-2021 Basophils/100 WBC (Unsp spec) 0.4 % 0-1 [facility] Work Phone: Immature granulocytes/100 WBC (Bld) 0.200 % 0.0-0.9 [facility] Work Phone: Comment on above: IG% - Immature Granu locytes (promyelocytes, myelocytes and metamyelocytes) > 1% indicates that a LEFT SHIFT is Present. Neutrophils/100 WBC (Bld) 35.1 % 47-70 [facility] Work Phone: Nucleated RBC/100 WBC (Bld) [Ratio] 0 % 0-5 [facility] Work Phone: No Panel Informationon 05-19 Troponin I High Sensitivity 669 pg/mL 3.0-54.0 [facility] Work Phone: Comment on above: Critical Result(s) C alled at: 06:49:53 05/19/2021 by: Félix Haryd. To Joana Kerr RN (ER). Results read back by same. Please Note: New Test Units and Gender Specific Reference Ranges. For more information see Policy Stat Procedure [place] High Sensitivity Troponin (TNIH) and attachments. INR in Blood by Coagulation assayon 05-18-2021 INR Coag (Bld) [Relative time] 1.0 {INR} [facility] Work Phone: Laboratory - Chemistry and C hemistry - challengeon 05-18-2021 Natriuretic peptide B (Bld) [Mass/Vol] 221.5 pg/mL 0-100 [facility] Work Phone: Laboratory - Coagulationon 1 07-19-2020 PT Coag (PPP) [Time] 12.9 s 11.7-14.9 [facility] Work Phone: Culture, urine Bacteria identified Cx Nom (U) Presumptive E. coli [facility] Work Phone: No Panel Information SARS-CoV-2 & FLU Antigen (Rapid) [facility] Work Phone: Vital Signs Date Time Vital Sign Value Performing Clinician Facility 01-29-2025 13:32-0400 Body height 162.56 cm Mehnaz Laughlin MD Work Phone: [facility] 01-29-2025 13:32-0400 Body mass index (BMI) [Ratio] 36.3 kg/m2 Mehnaz Laughlin MD Work Phone: [facility] 01-29-2025 13:32-0400 Body weight 96.16 kg Mehnaz Laughlin MD Work Phone: [facility] 01-29-2025 13:32-0400 Diastolic blood pressure 86 mm[Hg] Mehnaz Laughlin MD Work Phone: [facility] 01-29-2025 13:32-0400 Heart rate 67 /min Mehnaz Laughlin MD Work Phone: [facility] 01-29-2025 13:32-0400 Respiratory rate 16 /min Mehnaz Laughlin MD Work Phone: [facility] 01-29-2025 13:32-0400 Systolic blood pressure 154 mm[Hg] Mehnaz Laughlin MD Work Phone: [facility] 01-11-2025 18:49-0400 Body temperature 98 [degF] Mehnaz Laughlin MD Work Phone: [facility] 01-11-2025 18:49-0400 Diastolic blood pressure 69 mm[Hg] Mehnaz Laughlin MD Work Phone: [facility] 01-11-2025 18:49-0400 Heart rate 71 /min Mehnaz Laughlin MD Work Phone: 5(296)763-238710 [place] [address] 01-11-2025 18:49-0400 Respiratory rate 18 /min Mehnaz Laughlin MD Work Phone: 7(000)765-697710 [place] [address] 01-11-2025 18:49-0400 SaO2% (BldA) [Mass fraction] 100 % Mehnaz Laughlin MD Work Phone: [facility] 01-11-2025 18:49-0400 Systolic blood pressure 151 mm[Hg] Mehnaz Laughlin MD Work Phone: [facility] 01-11-2025 14:07-0400 Body height 162.56 cm Mehnaz Laughlin MD Work Phone: 4(414)951-388610 [place] [address] 01-11-2025 14:07-0400 Body mass index (BMI) [Ratio] 36.8 kg/m2 Mehnaz Laughlin MD Work Phone: [facility] 01-11-2025 14:07-0400 Body weight 97.29 kg Mehnaz Laughlin MD Work Phone: 1(525)164-040810 [place] [address] 01-11-2025 08:10-0400 Body mass index (BMI) [Ratio] 36.2 kg/m2 Mehnaz Laughlin MD Work Phone: [facility] 01-11-2025 08:10-0400 Body temperature 97 [degF] Mehnaz Laughlin MD Work Phone: [facility] 01-11-2025 08:10-0400 Body weight 95.7 kg Mehnaz Laughlin MD Work Phone: [facility] 01-11-2025 08:10-0400 Diastolic blood pressure 51 mm[Hg] Mehnaz Laughlin MD Work Phone: [facility] 01-11-2025 08:10-0400 Heart rate 67 /min Mehnaz Laughlin MD Work Phone: 0(515)448-469554 [place] [address] 01-11-2025 08:10-0400 Respiratory rate 20 /min Mehnaz Laughlin MD Work Phone: [facility] 01-11-2025 08:10-0400 SaO2% (BldA) [Mass fraction] 97 % Mehnaz Laughlin MD Work Phone: [facility] 01-11-2025 08:10-0400 Systolic blood pressure 98 mm[Hg] Mehnaz Laughlin MD Work Phone: [facility] 12-27-2024 09:08-0400 Body height 162.56 cm Mehnaz Laughlin MD Work Phone: [facility] 12-27-2024 09:08-0400 Body weight 99.79 kg Mehnaz Laughlin MD Work Phone: [facility] 12-27-2024 09:08-0400 Heart rate 75 /min Mehnaz Laughlin MD Work Phone: [facility] 12-27-2024 09:08-0400 SaO2% (BldA) [Mass fraction] 98 % Mehnaz Laughlin MD Work Phone: 4(285)910-503254 [place] [address] 2024 08:11-0400 Body mass index (BMI) [Ratio] 38 kg/m2 Mehnaz Laughlin MD Work Phone: [facility] 2024 08:11-0400 Body temperature 97.1 [degF] Mehnaz Laughlin MD Work Phone: [facility] 2024 08:11-0400 Body weight 100.69 kg Mehnaz Laughlin MD Work Phone: [facility] 2024 08:11-0400 Diastolic blood pressure 94 mm[Hg] Mehnaz Laughlin MD Work Phone: [facility] 2024 08:11-0400 Heart rate 74 /min Mehnaz Laughlin MD Work Phone: [facility] 2024 08:11-0400 Respiratory rate 20 /min Mehnaz Laughlin MD Work Phone: [facility] 2024 08:11-0400 SaO2% (BldA) [Mass fraction] 99 % Mehnaz Laughlin MD Work Phone: [facility] 2024 08:11-0400 Systolic blood pressure 154 mm[Hg] Mehnaz Laughlin MD Work Phone: [facility] 12-06-2024 21:08-0400 Body temperature 98.4 [degF] Mehnaz Laughlin MD Work Phone: [facility] 12-06-2024 21:08-0400 Diastolic blood pressure 72 mm[Hg] Mehnaz Laughlin MD Work Phone: [facility] 12-06-2024 21:08-0400 Heart rate 79 /min Mehnaz Laughlin MD Work Phone: [facility] 12-06-2024 21:08-0400 Respiratory rate 16 /min Mehnaz Laughlin MD Work Phone: [facility] 12-06-2024 21:08-0400 SaO2% (BldA) [Mass fraction] 97 % Mehnaz Laughlin MD Work Phone: [facility] 12-06-2024 21:08-0400 Systolic blood pressure 101 mm[Hg] Mehnaz Laughlin MD Work Phone: [facility] 12-06-2024 17:14-0400 Body height 162.56 cm Mehnaz Laughlin MD Work Phone: [facility] 12-06-2024 17:14-0400 Body mass index (BMI) [Ratio] 37.3 kg/m2 Mehnaz Laughlin MD Work Phone: 0(115)574-598954 [place] [address] 12-06-2024 17:14-0400 Body weight 98.61 kg Mehnaz Laughlin MD Work Phone: 6(892)533-187810 [place] [address] 12-01-2024 13:26-0400 Heart rate 93 /min Mehnaz Laughlin MD Work Phone: 0(366)751-617954 [place] [address] 12-01-2024 13:26-0400 Respiratory rate 18 /min Mehnaz Laughlin MD Work Phone: 4(765)015-242310 [place] [address] 12-01-2024 10:00-0400 Body temperature 97.1 [degF] Mehnaz Laughlin MD Work Phone: 9(752)417-247410 [place] [address] 12-01-2024 10:00-0400 Diastolic blood pressure 57 mm[Hg] Mehnaz Laughlin MD Work Phone: 4(432)337-777510 [place] [address] 12-01-2024 10:00-0400 SaO2% (BldA) [Mass fraction] 98 % Mehnaz Laughlin MD Work Phone: 7(855)960-480754 [place] [address] 12-01-2024 10:00-0400 Systolic blood pressure 151 mm[Hg] Mehnaz Laughlin MD Work Phone: [facility] 12-01-2024 03:46-0400 Body mass index (BMI) [Ratio] 37.8 kg/m2 Mehnaz Laughlin MD Work Phone: 1(120)796-027154 [place] [address] 12-01-2024 03:46-0400 Body weight 100.1 kg Mehnaz Laughlin MD Work Phone: 3(990)885-787610 [place] [address] 11-30-2024 19:56-0400 Body height 162.56 cm Mehnaz Laughlin MD Work Phone: 0(057)361-926410 [place] [address] 11-30-2024 19:13-0400 Body temperature 97.8 [degF] Mehnaz Laughlin MD Work Phone: [facility] 11-30-2024 19:13-0400 Diastolic blood pressure 113 mm[Hg] Mehnaz Laughlin MD Work Phone: [facility] 11-30-2024 19:13-0400 Heart rate 93 /min Mehnaz Laughlin MD Work Phone: 0(660)180-299310 [place] [address] 11-30-2024 19:13-0400 Respiratory rate 20 /min Mehnaz Laughlin MD Work Phone: 4(041)404-424654 [place] [address] 11-30-2024 19:13-0400 SaO2% (BldA) [Mass fraction] 100 % Mehnaz Laughlin MD Work Phone: 4(629)136-521810 [place] [address] 11-30-2024 19:13-0400 Systolic blood pressure 157 mm[Hg] Mehnaz Laughlin MD Work Phone: 3(226)505-482810 [place] [address] 11-30-2024 15:47-0400 Body height 162.56 cm Mehnaz Laughlin MD Work Phone: 2(461)220-047810 [place] [address] 11-30-2024 15:47-0400 Body mass index (BMI) [Ratio] 38.3 kg/m2 Mehnaz Laughlin MD Work Phone: 1(464)104-788710 [place] [address] 11-30-2024 15:47-0400 Body weight 101.4 kg Mehnaz Laughlin MD Work Phone: 2(496)021-251754 [place] [address] 11-07-2024 14:31-0400 Body height 162.56 cm Mehnaz Laughlin MD Work Phone: 0(570)075-663310 [place] [address] 11-07-2024 14:31-0400 Body mass index (BMI) [Ratio] 36.8 kg/m2 Mehnaz Laughlin MD Work Phone: 0(323)743-182154 [place] [address] 11-07-2024 14:31-0400 Body weight 97.52 kg Mehnaz Lauhglin MD Work Phone: 7(228)959-101610 [place] [address] 11-07-2024 14:31-0400 Diastolic blood pressure 69 mm[Hg] Mehnaz Laughlin MD Work Phone: [facility] 11-07-2024 14:31-0400 Heart rate 86 /min Mehnaz Laughlin MD Work Phone: [facility] 11-07-2024 14:31-0400 SaO2% (BldA) [Mass fraction] 97 % Mehnaz Laughlin MD Work Phone: [facility] 11-07-2024 14:31-0400 Systolic blood pressure 108 mm[Hg] Mehnaz Laughlin MD Work Phone: [facility] 10-15-2024 13:57-0400 Diastolic blood pressure 90 mm[Hg] Mehnaz Laughlin MD Work Phone: [facility] 10-15-2024 13:57-0400 Heart rate 84 /min Mehnaz Laughlin MD Work Phone: [facility] 10-15-2024 13:57-0400 Respiratory rate 18 /min Mehnaz Laughlin MD Work Phone: [facility] 10-15-2024 13:57-0400 SaO2% (BldA) [Mass fraction] 100 % Mehnaz Laughlin MD Work Phone: [facility] 10-15-2024 13:57-0400 Systolic blood pressure 139 mm[Hg] Mehnaz Laughlin MD Work Phone: [facility] 10-15-2024 10:31-0400 Body height 162.56 cm Mehnaz Laughlin MD Work Phone: [facility] 10-15-2024 10:31-0400 Body mass index (BMI) [Ratio] 35.9 kg/m2 Mehnaz Laughlin MD Work Phone: [facility] 10-15-2024 10:31-0400 Body temperature 97 [degF] Mehnaz Laughlin MD Work Phone: [facility] 10-15-2024 10:31-0400 Body weight 95.11 kg Mehnaz Laughlin MD Work Phone: [facility] 09-12-2024 14:43-0400 Body height 162.56 cm Mehnaz Laughlin MD Work Phone: [facility] 09-12-2024 14:43-0400 Body mass index (BMI) [Ratio] 36.2 kg/m2 Mehnaz Laughlin MD Work Phone: [facility] 09-12-2024 14:43-0400 Body weight 95.7 kg Mehnaz Laughlin MD Work Phone: [facility] 09-12-2024 14:43-0400 Diastolic blood pressure 63 mm[Hg] Mehnaz Laughlin MD Work Phone: [facility] 09-12-2024 14:43-0400 Heart rate 84 /min Mehnaz Laughlin MD Work Phone: [facility] 09-12-2024 14:43-0400 SaO2% (BldA) [Mass fraction] 94 % Mehnaz Laughlin MD Work Phone: [facility] 09-12-2024 14:43-0400 Systolic blood pressure 93 mm[Hg] Mehnaz Laughlin MD Work Phone: [facility] 09-11-2024 17:00-0400 Diastolic blood pressure 84 mm[Hg] Mehnaz Laughlin MD Work Phone: [facility] 09-11-2024 17:00-0400 Heart rate 71 /min Mehnaz Laughlin MD Work Phone: [facility] 09-11-2024 17:00-0400 Respiratory rate 18 /min Mehnaz Laughlin MD Work Phone: [facility] 09-11-2024 17:00-0400 SaO2% (BldA) [Mass fraction] 98 % Mehnaz Laughlin MD Work Phone: [facility] 09-11-2024 17:00-0400 Systolic blood pressure 137 mm[Hg] Mehnaz Laughlin MD Work Phone: [facility] 09-11-2024 12:47-0400 Heart rate 72 /min Mehnaz Laughlin MD Work Phone: [facility] 09-11-2024 12:47-0400 Respiratory rate 16 /min Mehnaz Laughlin MD Work Phone: [facility] 09-11-2024 12:47-0400 SaO2% (BldA) [Mass fraction] 96 % Mehnaz Laughlin MD Work Phone: [facility] 09-11-2024 11:00-0400 Body temperature 97.6 [degF] Mehnaz Laughlin MD Work Phone: [facility] 09-11-2024 11:00-0400 Diastolic blood pressure 64 mm[Hg] Mehnaz Laughlin MD Work Phone: [facility] 09-11-2024 11:00-0400 Systolic blood pressure 118 mm[Hg] Mehnaz Laughlin MD Work Phone: [facility] 09-11-2024 07:17-0400 Inhaled oxygen flow rate 1 L/min Mehnaz Laughlin MD Work Phone: [facility] 09-11-2024 03:42-0400 Body mass index (BMI) [Ratio] 36.4 kg/m2 Mehnaz Laughlin MD Work Phone: [facility] 09-11-2024 03:42-0400 Body weight 96.4 kg Mehnaz Laughlin MD Work Phone: [facility] 09-10-2024 09:49-0400 Body height 162.56 cm Mehnaz Laughlin MD Work Phone: [facility] 09-09-2024 19:00-0400 Heart rate 109 /min Mehnaz Laughlin MD Work Phone: [facility] 09-09-2024 19:00-0400 Respiratory rate 26 /min Mehnaz Laughlin MD Work Phone: [facility] 09-09-2024 19:00-0400 SaO2% (BldA) [Mass fraction] 97 % Mehnaz Laughlin MD Work Phone: [facility] 09-09-2024 18:13-0400 Body temperature 98.1 [degF] Mehnaz Laughlin MD Work Phone: 0(608)109-917710 [place] [address] 09-09-2024 18:13-0400 Diastolic blood pressure 97 mm[Hg] Mehnaz Laughlin MD Work Phone: 7(479)910-088810 [place] [address] 09-09-2024 18:13-0400 Systolic blood pressure 135 mm[Hg] Mehnaz Laughlin MD Work Phone: 8(413)067-425510 [place] [address] 09-09-2024 17:00-0400 Inhaled oxygen flow rate 2 L/min Mehnaz Laughlin MD Work Phone: 3(379)464-435610 [place] [address] 09-09-2024 15:48-0400 Body height 162.56 cm Mehnaz Laughlin MD Work Phone: 7(914)867-869919 [address] 09-09-2024 15:48-0400 Body mass index (BMI) [Ratio] 36.5 kg/m2 Mehnaz Laughlin MD Work Phone: 3(096)160-233110 [place] [address] 09-09-2024 15:48-0400 Body weight 96.43 kg Mehnaz Laughlin MD Work Phone: 2(165)256-739810 [place] [address] 06-13-2024 15:07-0500 Body mass index (BMI) [Ratio] 37.1 kg/m2 Mehnaz Laughlin MD Work Phone: 6(764)125-459010 [place] [address] 06-13-2024 15:07-0500 Body weight 98.14 kg Mehnaz Laughlin MD Work Phone: 4(124)453-246510 [place] [address] 06-13-2024 15:07-0500 Diastolic blood pressure 77 mm[Hg] Mehnaz Laughlin MD Work Phone: 5(380)824-439210 [place] [address] 06-13-2024 15:07-0500 Heart rate 59 /min Mehnaz Laughlin MD Work Phone: 7(915)030-979010 [place] [address] 06-13-2024 15:07-0500 SaO2% (BldA) [Mass fraction] 98 % Mehnaz Laughlin MD Work Phone: 2(238)059-668610 [place] [address] 06-13-2024 15:07-0500 Systolic blood pressure 131 mm[Hg] Mehnaz Laughlin MD Work Phone: [facility] 05-30-2024 20:42-0500 Body temperature 98 [degF] Mehnaz Laughlin MD Work Phone: [facility] 05-30-2024 20:42-0500 Diastolic blood pressure 81 mm[Hg] eMhnaz Laughlin MD Work Phone: [facility] 05-30-2024 20:42-0500 Heart rate 83 /min Mehnaz Laughlin MD Work Phone: [facility] 05-30-2024 20:42-0500 Respiratory rate 18 /min Mehnaz Laughlin MD Work Phone: [facility] 05-30-2024 20:42-0500 SaO2% (BldA) [Mass fraction] 99 % Mehnaz Laughlin MD Work Phone: [facility] 05-30-2024 20:42-0500 Systolic blood pressure 140 mm[Hg] Mehnaz Laughlin MD Work Phone: [facility] 05-30-2024 18:16-0500 Body mass index (BMI) [Ratio] 36.3 kg/m2 Mehnaz Laughlin MD Work Phone: [facility] 05-30-2024 18:16-0500 Body weight 96.2 kg Mehnaz Laughlin MD Work Phone: [facility] 09-10-2023 07:18-0400 Body temperature 97.7 [degF] Dr. Margo Tatum Work Phone: [facility] 09-10-2023 07:18-0400 Diastolic blood pressure 58 mm[Hg] Dr. Margo Tatum Work Phone: [facility] 09-10-2023 07:18-0400 Heart rate 62 /min Dr. Margo Tatum Work Phone: [facility] 09-10-2023 07:18-0400 Respiratory rate 16 /min Dr. Margo Tatum Work Phone: [facility] 09-10-2023 07:18-0400 SaO2% (BldA) [Mass fraction] 100 % Dr. Margo Tatum Work Phone: [facility] 09-10-2023 07:18-0400 Systolic blood pressure 104 mm[Hg] Dr. Margo Tatum Work Phone: [facility] 09-08-2023 16:52-0400 Inhaled oxygen flow rate 2 L/min Dr. Margo Tatum Work Phone: [facility] 09-06-2023 19:32-0400 Body height 162.[address] Margo Tatum Work Phone: [facility] 09-06-2023 19:32-0400 Body mass index (BMI) [Ratio] 35.9 kg/m2 Dr. Margo Tatum Work Phone: [facility] 09-06-2023 19:32-0400 Body weight 94.[address] Margo Tatum Work Phone: [facility] 09-06-2023 18:00-0400 Body temperature 98.6 [degF] Dr. Margo Tatum Work Phone: [facility] 09-06-2023 18:00-0400 Diastolic blood pressure 62 mm[Hg] Dr. Margo Tatum Work Phone: [facility] 09-06-2023 18:00-0400 Heart rate 78 /min Dr. Margo Tatum Work Phone: [facility] 09-06-2023 18:00-0400 Respiratory rate 12 /min Dr. Margo Tatum Work Phone: [facility] 09-06-2023 18:00-0400 SaO2% (BldA) [Mass fraction] 100 % Dr. Margo Tatum Work Phone: [facility] 04-02-2024 18:00-0400 Systolic blood pressure 129 mm[Hg] Dr. Margo Tatum Work Phone: [facility] 09-06-2023 11:42-0400 Body height 162.[address] Margo Tatum Work Phone: [facility] 09-06-2023 11:42-0400 Body mass index (BMI) [Ratio] 35.9 kg/m2 Dr. Margo Tatum Work Phone: [facility] 09-06-2023 11:42-0400 Body weight 94.[address] Margo Tatum Work Phone: [facility] 08-29-2023 15:00-0400 Body temperature 98.5 [degF] Dr. Margo Tatum Work Phone: [facility] 08-29-2023 15:00-0400 Diastolic blood pressure 41 mm[Hg] Dr. Margo Tatum Work Phone: [facility] 08-29-2023 15:00-0400 Heart rate 88 /min Dr. Margo Tatum Work Phone: [facility] 08-29-2023 15:00-0400 Respiratory rate 18 /min Dr. Margo Tatum Work Phone: [facility] [facility] 08-29-2023 15:00-0400 SaO2% (BldA) [Mass fraction] 97 % Dr. Margo Tatum Work Phone: [facility] 08-29-2023 15:00-0400 Systolic blood pressure 101 mm[Hg] Dr. Margo Tatum Work Phone: [facility] 08-29-2023 06:00-0400 Body mass index (BMI) [Ratio] 35.7 kg/m2 Dr. Margo Tatum Work Phone: [facility] 08-29-2023 06:00-0400 Body weight [address] Margo Tatum Work Phone: [facility] 08-26-2023 23:55-0400 Body height 162.[address] Margo Tatum Work Phone: [facility] 08-26-2023 23:00-0400 Diastolic blood pressure 77 mm[Hg] Dr. Margo Tatum Work Phone: [facility] 08-26-2023 23:00-0400 Heart rate 94 /min Dr. Margo Tatum Work Phone: [facility] 08-26-2023 23:00-0400 Respiratory rate 18 /min Dr. Margo Tatum Work Phone: [facility] 08-26-2023 23:00-0400 SaO2% (BldA) [Mass fraction] 96 % Dr. Margo Tatum Work Phone: [facility] 08-26-2023 23:00-0400 Systolic blood pressure 173 mm[Hg] Dr. Margo Tatum Work Phone: [facility] 08-26-2023 22:44-0400 Body temperature 98.8 [degF] Dr. Margo Tatum Work Phone: [facility] 08-26-2023 18:21-0400 Body height 162.[address] Margo Tatum Work Phone: [facility] 08-26-2023 18:21-0400 Body mass index (BMI) [Ratio] 35.6 kg/m2 Dr. Margo Tatum Work Phone: [facility] 08-26-2023 18:21-0400 Body weight 94.[address] Margo Tatum Work Phone: [facility] 08-11-2023 11:45-0500 Body height 162.[address] Margo Tatum Work Phone: [facility] 08-11-2023 11:45-0500 Body mass index (BMI) [Ratio] 35.9 kg/m2 Dr. Margo Tatum Work Phone: [facility] 08-11-2023 11:45-0500 Body temperature 98.6 [degF] Dr. Margo Ttaum Work Phone: [facility] 08-11-2023 11:45-0500 Body weight 94.[address] Margo Tatum Work Phone: [facility] 08-11-2023 11:45-0500 Diastolic blood pressure 86 mm[Hg] Dr. Margo Tatum Work Phone: [facility] 08-11-2023 11:45-0500 Heart rate 88 /min Dr. Margo Tatum Work Phone: [facility] 08-11-2023 11:45-0500 Respiratory rate 18 /min Dr. Margo Tatum Work Phone: [facility] 08-11-2023 11:45-0500 SaO2% (BldA) [Mass fraction] 96 % Dr. Margo Tatum Work Phone: [facility] 08-11-2023 11:45-0500 Systolic blood pressure 116 mm[Hg] Dr. Margo Tatum Work Phone: [facility] 08-02-2023 11:55-0500 Body temperature 98.9 [degF] Dr. Margo Tatum Work Phone: [facility] 08-02-2023 11:55-0500 Diastolic blood pressure 78 mm[Hg] Dr. Margo Tatum Work Phone: [facility] 08-02-2023 11:55-0500 Heart rate 84 /min Dr. Margo Tatum Work Phone: [facility] 08-02-2023 11:55-0500 Respiratory rate 16 /min Dr. Margo Tatum Work Phone: [facility] 08-02-2023 11:55-0500 SaO2% (BldA) [Mass fraction] 97 % Dr. Margo Tatum Work Phone: [facility] 08-02-2023 11:55-0500 Systolic blood pressure 139 mm[Hg] Dr. Margo Tatum Work Phone: [facility] 08-02-2023 09:09-0500 Body mass index (BMI) [Ratio] 36.3 kg/m2 Dr. Margo Tatum Work Phone: [facility] 08-02-2023 09:09-0500 Body weight 95.[address] Margo Tatum Work Phone: [facility] 05-18-2023 13:15-0500 Heart rate 72 /min Dr. Margo Tatum Work Phone: [facility] 05-18-2023 13:15-0500 Inhaled oxygen flow rate 2 L/min Dr. Margo Tatum Work Phone: [facility] 05-18-2023 13:15-0500 Respiratory rate 16 /min Dr. Margo Tatum Work Phone: [facility] 05-18-2023 13:15-0500 SaO2% (BldA) [Mass fraction] 99 % Dr. Margo Tatum Work Phone: [facility] 05-18-2023 09:40-0500 Body height 162.[address] Margo Tatum Work Phone: [facility] 05-18-2023 09:40-0500 Body mass index (BMI) [Ratio] 36.2 kg/m2 Dr. Margo Tatum Work Phone: [facility] 05-18-2023 09:40-0500 Body temperature 97.6 [degF] Dr. Margo Tatum Work Phone: [facility] 05-18-2023 09:40-0500 Body weight 95.[address] Margo Tatum Work Phone: [facility] 05-18-2023 09:40-0500 Diastolic blood pressure 88 mm[Hg] Dr. Margo Tatum Work Phone: [facility] 05-18-2023 09:40-0500 Systolic blood pressure 151 mm[Hg] Dr. Margo Tatum Work Phone: [facility] 05-11-2023 14:15-0500 Body mass index (BMI) [Ratio] 37 kg/m2 Dr. Margo Tatum Work Phone: [facility] 05-11-2023 14:15-0500 Body temperature 98.7 [degF] Dr. Margo Tatum Work Phone: [facility] 05-11-2023 14:15-0500 Body weight 97.[address] Margo Tatum Work Phone: [facility] 05-11-2023 14:15-0500 Diastolic blood pressure 74 mm[Hg] Dr. Margo Tatum Work Phone: [facility] 05-11-2023 14:15-0500 Heart rate 78 /min Dr. Margo Tatum Work Phone: [facility] 05-11-2023 14:15-0500 Respiratory rate 16 /min Dr. Margo Tatum Work Phone: [facility] 05-11-2023 14:15-0500 SaO2% (BldA) [Mass fraction] 97 % Dr. Margo Tatum Work Phone: [facility] 05-11-2023 14:15-0500 Systolic blood pressure 116 mm[Hg] Dr. Margo Tatum Work Phone: [facility] 03-08-2023 10:03-0400 Body mass index (BMI) [Ratio] 37.9 kg/m2 Dr. Margo Tatum Work Phone: [facility] 03-08-2023 10:03-0400 Body weight 100.[address] Margo Tatum Work Phone: [facility] 03-08-2023 10:03-0400 Diastolic blood pressure 64 mm[Hg] Dr. Margo Tatum Work Phone: [facility] 03-08-2023 10:03-0400 Heart rate 72 /min Dr. Margo Tatum Work Phone: [facility] 03-08-2023 10:03-0400 Respiratory rate 18 /min Dr. Margo Tatum Work Phone: [facility] 03-08-2023 10:03-0400 Systolic blood pressure 115 mm[Hg] Dr. Margo Tatum Work Phone: [facility] 01-26-2023 10:43-0400 Body mass index (BMI) [Ratio] 38.9 kg/m2 Dr. Margo Tatum Work Phone: [facility] 01-26-2023 10:43-0400 Body temperature 98.3 [degF] Dr. Margo Tatum Work Phone: [facility] 01-26-2023 10:43-0400 Body weight 103.[address] Margo Tatum Work Phone: [facility] 01-26-2023 10:43-0400 Diastolic blood pressure 82 mm[Hg] Dr. Margo Tatum Work Phone: [facility] 01-26-2023 10:43-0400 Heart rate 78 /min Dr. Margo Tatum Work Phone: [facility] 01-26-2023 10:43-0400 Respiratory rate 20 /min Dr. Margo Tatum Work Phone: [facility] 01-26-2023 10:43-0400 SaO2% (BldA) [Mass fraction] 96 % Dr. Margo Tatum Work Phone: [facility] 01-26-2023 10:43-0400 Systolic blood pressure 152 mm[Hg] Dr. Margo Tatum Work Phone: [facility] 10-20-2022 16:08-0400 Body height 162.[address] Margo Tatum Work Phone: [facility] 10-20-2022 16:08-0400 Body mass index (BMI) [Ratio] 38.1 kg/m2 Dr. Margo Tatum Work Phone: [facility] 10-20-2022 16:08-0400 Body weight 100.[address] Margo Tatum Work Phone: [facility] 10-20-2022 16:08-0400 Diastolic blood pressure 88 mm[Hg] Dr. Margo Tatum Work Phone: [facility] 10-20-2022 16:08-0400 Heart rate 67 /min Dr. Margo Tatum Work Phone: [facility] 10-20-2022 16:08-0400 Respiratory rate 16 /min Dr. Margo Tatum Work Phone: [facility] 10-20-2022 16:08-0400 Systolic blood pressure 183 mm[Hg] Dr. Margo Tatum Work Phone: [facility] 10-18-2022 13:08-0400 Body mass index (BMI) [Ratio] 38.5 kg/m2 Dr. Margo Tatum Work Phone: [facility] 10-18-2022 13:08-0400 Body weight 101.[address] Margo Tatum Work Phone: [facility] 10-18-2022 12:18-0400 Body height 162.[address] Margo Tatum Work Phone: [facility] 10-18-2022 12:18-0400 Body temperature 98 [degF] Dr. Margo Tatum Work Phone: [facility] 10-18-2022 12:18-0400 Diastolic blood pressure 48 mm[Hg] Dr. Margo Tatum Work Phone: [facility] 10-18-2022 12:18-0400 Heart rate 85 /min Dr. Margo Tatum Work Phone: [facility] 10-18-2022 12:18-0400 Respiratory rate 16 /min Dr. Margo Tatum Work Phone: [facility] 10-18-2022 12:18-0400 SaO2% (BldA) [Mass fraction] 97 % Dr. Margo Tatum Work Phone: [facility] 10-18-2022 12:18-0400 Systolic blood pressure 151 mm[Hg] Dr. Margo Tatum Work Phone: [facility] 10-07-2022 17:19-0400 Diastolic blood pressure 78 mm[Hg] Dr. Margo Tatum Work Phone: [facility] 10-07-2022 17:19-0400 Heart rate 74 /min Dr. Margo Tatum Work Phone: [facility] 10-07-2022 17:19-0400 Respiratory rate 18 /min Dr. Margo Tatum Work Phone: [facility] 10-07-2022 17:19-0400 SaO2% (BldA) [Mass fraction] 99 % Dr. Margo Tatum Work Phone: [facility] 10-07-2022 17:19-0400 Systolic blood pressure 174 mm[Hg] Dr. Margo Tatum Work Phone: [facility] 10-07-2022 15:20-0400 Body height 164.[address] Margo Tatum Work Phone: [facility] 10-07-2022 15:20-0400 Body mass index (BMI) [Ratio] 39.5 kg/m2 Dr. Margo Tatum Work Phone: [facility] 10-07-2022 15:20-0400 Body temperature 98.5 [degF] Dr. Margo Tatum Work Phone: [facility] 10-07-2022 15:20-0400 Body weight 106.[address] Margo Tatum Work Phone: [facility] 09-23-2022 14:45-0400 Body height 162.[address] Margo Tatum Work Phone: [facility] 09-23-2022 14:45-0400 Body mass index (BMI) [Ratio] 38.8 kg/m2 Dr. Margo Tatum Work Phone: [facility] 09-23-2022 14:45-0400 Body temperature 97.3 [degF] Dr. Margo Tatum Work Phone: [facility] 09-23-2022 14:45-0400 Body weight 102.[address] Margo Tatum Work Phone: [facility] 09-23-2022 14:45-0400 Diastolic blood pressure 72 mm[Hg] Dr. Margo Tatum Work Phone: [facility] 09-23-2022 14:45-0400 Heart rate 70 /min Dr. Margo Tatum Work Phone: [facility] 09-23-2022 14:45-0400 Respiratory rate 16 /min Dr. Margo Tatum Work Phone: [facility] 09-23-2022 14:45-0400 SaO2% (BldA) [Mass fraction] 96 % Dr. Margo Tatum Work Phone: [facility] 09-23-2022 14:45-0400 Systolic blood pressure 102 mm[Hg] Dr. Margo Tatum Work Phone: [facility] 09-20-2022 20:05-0400 Diastolic blood pressure 117 mm[Hg] Rupali Shaw MD, PhD Work Phone: [facility] 09-20-2022 20:05-0400 Heart rate 99 /min Rupali Shaw MD, PhD Work Phone: [facility] 09-20-2022 20:05-0400 Respiratory rate 25 /min Rupali Shaw MD, PhD Work Phone: [facility] 09-20-2022 20:05-0400 SaO2% (BldA) [Mass fraction] 98 % Rupali Shaw MD, PhD Work Phone: [facility] 09-20-2022 20:05-0400 Systolic blood pressure 200 mm[Hg] Rupali Shaw MD, PhD Work Phone: [facility] 09-20-2022 15:04-0400 Body temperature 97.59 [degF] Rupali Shaw MD, PhD Work Phone: [facility] 09-20-2022 14:59-0400 Body height 163.8 cm Rupali Shaw MD, PhD Work Phone: [facility] 09-14-2022 13:55-0400 Body mass index (BMI) [Ratio] 39.1 kg/m2 Dr. Margo Tatum Work Phone: [facility] 09-14-2022 13:55-0400 Body weight 103.[address] Margo Tatum Work Phone: [facility] 09-14-2022 13:55-0400 Diastolic blood pressure 71 mm[Hg] Dr. Margo Tatum Work Phone: [facility] 09-14-2022 13:55-0400 Heart rate 71 /min Dr. Margo Tatum Work Phone: [facility] 09-14-2022 13:55-0400 Respiratory rate 20 /min Dr. Margo Tatum Work Phone: [facility] 09-14-2022 13:55-0400 SaO2% (BldA) [Mass fraction] 72 % Dr. Margo Tatum Work Phone: [facility] 09-14-2022 13:55-0400 Systolic blood pressure 137 mm[Hg] Dr. Margo Tatum Work Phone: [facility] 09-06-2022 04:41-0400 Body mass index (BMI) [Ratio] 38.2 kg/m2 Dr. Margo Tatum Work Phone: [facility] 09-06-2022 04:41-0400 Body temperature 97.6 [degF] Dr. Margo Tatum Work Phone: [facility] 09-06-2022 04:41-0400 Body weight 101.[address] Margo Tatum Work Phone: [facility] 09-06-2022 04:41-0400 Diastolic blood pressure 76 mm[Hg] Dr. Margo Tatum Work Phone: [facility] 09-06-2022 04:41-0400 Heart rate 79 /min Dr. Margo Tatum Work Phone: [facility] 09-06-2022 04:41-0400 Respiratory rate 18 /min Dr. Margo Tatum Work Phone: [facility] 09-06-2022 04:41-0400 SaO2% (BldA) [Mass fraction] 96 % Dr. Margo Tatum Work Phone: [facility] 09-06-2022 04:41-0400 Systolic blood pressure 158 mm[Hg] Dr. Margo Tatum Work Phone: [facility] 09-02-2022 12:01-0400 Diastolic blood pressure 73 mm[Hg] Dr. Margo Tatum Work Phone: [facility] 09-02-2022 12:01-0400 Heart rate 79 /min Dr. Margo Tatum Work Phone: [facility] 09-02-2022 12:01-0400 Respiratory rate 16 /min Dr. Margo Tatum Work Phone: [facility] 09-02-2022 12:01-0400 SaO2% (BldA) [Mass fraction] 97 % Dr. Mrago Tatum Work Phone: [facility] 09-02-2022 12:01-0400 Systolic blood pressure 132 mm[Hg] Dr. Margo Tatum Work Phone: [facility] 09-02-2022 09:26-0400 Body mass index (BMI) [Ratio] 38.2 kg/m2 Dr. Margo Tatum Work Phone: [facility] 09-02-2022 09:26-0400 Body temperature 98.2 [degF] Dr. Margo Tatum Work Phone: [facility] 09-02-2022 09:26-0400 Body weight 101.[address] Margo Tatum Work Phone: [facility] 08-18-2022 17:30-0400 Diastolic blood pressure 58 mm[Hg] Serafin Padron MD Work Phone: [facility] 08-18-2022 17:30-0400 Heart rate 83 /min Serafin Padron MD Work Phone: [facility] 08-18-2022 17:30-0400 Respiratory rate 16 /min Serafin Padron MD Work Phone: [facility] 08-18-2022 17:30-0400 SaO2% (BldA) [Mass fraction] 96 % Serafin Padron MD Work Phone: [facility] 08-18-2022 17:30-0400 Systolic blood pressure 112 mm[Hg] Serafin Padron MD Work Phone: [facility] 08-18-2022 08:30-0400 Body height 162.6 cm Serafin Padron MD Work Phone: [facility] 08-18-2022 08:30-0400 Body mass index (BMI) [Ratio] 37.59 kg/m2 Serafin Padron MD Work Phone: [facility] 08-18-2022 08:30-0400 Body temperature 97.7 [degF] Serafin Padron MD Work Phone: [facility] 08-18-2022 08:30-0400 Body weight 99.34 kg Serafin Padron MD Work Phone: [facility] 08-07-2022 16:48-0500 Diastolic blood pressure 45 mm[Hg] Dr. Margo Tatum Work Phone: [facility] 08-07-2022 16:48-0500 Heart rate 74 /min Dr. Margo Tatum Work Phone: [facility] 08-07-2022 16:48-0500 Systolic blood pressure 132 mm[Hg] Dr. Margo Tatum Work Phone: [facility] 08-07-2022 13:39-0500 Body temperature 97.9 [degF] Dr. Margo Tatum Work Phone: [facility] 08-07-2022 13:39-0500 Respiratory rate 16 /min Dr. Margo Tatum Work Phone: [facility] 08-07-2022 13:39-0500 SaO2% (BldA) [Mass fraction] 100 % Dr. Margo Tatum Work Phone: [facility] 08-07-2022 07:33-0500 Body temperature 97.9 [degF] Dr. Margo Tatum Work Phone: [facility] 08-07-2022 07:33-0500 Diastolic blood pressure 71 mm[Hg] Dr. Margo Ttaum Work Phone: [facility] 08-07-2022 07:33-0500 Heart rate 72 /min Dr. Margo Tatum Work Phone: [facility] 08-07-2022 07:33-0500 Respiratory rate 18 /min Dr. Margo Tatum Work Phone: [facility] 08-07-2022 07:33-0500 SaO2% (BldA) [Mass fraction] 97 % Dr. Margo Tatum Work Phone: [facility] 08-07-2022 07:33-0500 Systolic blood pressure 114 mm[Hg] Dr. Margo Tatum Work Phone: [facility] 08-06-2022 22:49-0500 Body height 162.[address] Margo Tatum Work Phone: [facility] 08-06-2022 22:49-0500 Body mass index (BMI) [Ratio] 37.3 kg/m2 Dr. Margo Tatum Work Phone: [facility] 08-06-2022 22:49-0500 Body weight 98.[address] Margo Tatum Work Phone: [facility] 08-06-2022 22:30-0500 Body temperature 97.6 [degF] Dr. Margo Tatum Work Phone: [facility] 08-06-2022 22:30-0500 Diastolic blood pressure 81 mm[Hg] Dr. Margo Tatum Work Phone: [facility] 08-06-2022 22:30-0500 Heart rate 81 /min Dr. Margo Tatum Work Phone: [facility] 08-06-2022 22:30-0500 Respiratory rate 15 /min Dr. Margo Tatum Work Phone: [facility] 08-06-2022 22:30-0500 SaO2% (BldA) [Mass fraction] 97 % Dr. Margo Tatum Work Phone: [facility] 08-06-2022 22:30-0500 Systolic blood pressure 154 mm[Hg] Dr. Margo Tatum Work Phone: [facility] 08-06-2022 17:51-0500 Body height 162.[address] Margo Tatum Work Phone: [facility] 06-30-2022 10:58-0500 Body height 162.[address] Margo Tatum Work Phone: [facility] 06-30-2022 10:58-0500 Body mass index (BMI) [Ratio] 35.9 kg/m2 Dr. Margo Tatum Work Phone: [facility] 06-30-2022 10:58-0500 Body temperature 96 [degF] Dr. Margo Tatum Work Phone: [facility] 06-30-2022 10:58-0500 Body weight 94.[address] Margo Tatmu Work Phone: [facility] 06-30-2022 10:58-0500 Diastolic blood pressure 78 mm[Hg] Dr. Margo Tatum Work Phone: [facility] 06-30-2022 10:58-0500 Heart rate 70 /min Dr. Margo Tatum Work Phone: [facility] 06-30-2022 10:58-0500 Respiratory rate 22 /min Dr. Margo Tatum Work Phone: [facility] 06-30-2022 10:58-0500 SaO2% (BldA) [Mass fraction] 100 % Dr. Margo Tatum Work Phone: [facility] 06-30-2022 10:58-0500 Systolic blood pressure 158 mm[Hg] Dr. Margo Tatum Work Phone: [facility] 06-09-2022 10:24-0500 Body mass index (BMI) [Ratio] 36.9 kg/m2 Dr. Margo Tatum Work Phone: [facility] 01-04-2023 10:24-0500 Body temperature 97 [degF] Dr. Margo Tatum Work Phone: [facility] 06-09-2022 10:24-0500 Body weight 97.[address] Margo Tatum Work Phone: [facility] 06-09-2022 10:24-0500 Diastolic blood pressure 78 mm[Hg] Dr. Margo Tatum Work Phone: [facility] 06-09-2022 10:24-0500 Heart rate 71 /min Dr. Margo Tatum Work Phone: [facility] 06-09-2022 10:24-0500 Respiratory rate 18 /min Dr. Margo Tatum Work Phone: [facility] 06-09-2022 10:24-0500 SaO2% (BldA) [Mass fraction] 97 % Dr. Margo Tatum Work Phone: [facility] 06-09-2022 10:24-0500 Systolic blood pressure 126 mm[Hg] Dr. Margo Tatum Work Phone: [facility] 05-18-2022 13:53-0500 Body height 162.[address] Margo Tatum Work Phone: [facility] Work Phone: 05-18-2022 13:53-0500 Body mass index (BMI) [Ratio] 36.3 kg/m2 Dr. Margo Tatum Work Phone: [facility] 05-18-2022 13:53-0500 Body temperature 97.5 [degF] Dr. Margo Tatum Work Phone: [facility] 05-18-2022 13:53-0500 Body weight 96.[address] Margo Tatum Work Phone: [facility] 05-18-2022 13:53-0500 Diastolic blood pressure 77 mm[Hg] Dr. Margo Tatum Work Phone: [facility] 05-18-2022 13:53-0500 Heart rate 58 /min Dr. Margo Tatum Work Phone: [facility] 05-18-2022 13:53-0500 Respiratory rate 18 /min Dr. Margo Tatum Work Phone: [facility] 05-18-2022 13:53-0500 SaO2% (BldA) [Mass fraction] 100 % Dr. Margo Tatum Work Phone: [facility] 05-18-2022 13:53-0500 Systolic blood pressure 147 mm[Hg] Dr. Margo Tatum Work Phone: [facility] 05-08-2022 14:00-0500 Diastolic blood pressure 88 mm[Hg] Dr. Margo Tatum Work Phone: [facility] 05-08-2022 14:00-0500 Heart rate 77 /min Dr. Margo Tatum Work Phone: [facility] 05-08-2022 14:00-0500 Respiratory rate 18 /min Dr. Margo Tatum Work Phone: [facility] 05-08-2022 14:00-0500 SaO2% (BldA) [Mass fraction] 97 % Dr. Margo Tatum Work Phone: [facility] 05-08-2022 14:00-0500 Systolic blood pressure 130 mm[Hg] Dr. Margo Tatum Work Phone: [facility] 05-08-2022 12:01-0500 Body height 162.[address] Margo Tatum Work Phone: [facility] Work Phone: 05-08-2022 12:01-0500 Body mass index (BMI) [Ratio] 36 kg/m2 Dr. Margo Tatum Work Phone: [facility] 05-08-2022 12:01-0500 Body temperature 97.5 [degF] Dr. Margo Tatum Work Phone: [facility] 05-08-2022 12:01-0500 Body weight 95.[address] Margo Tatum Work Phone: [facility] 05-06-2022 14:23-0500 Body mass index (BMI) [Ratio] 36.1 kg/m2 Dr. Margo Tatum Work Phone: [facility] 05-06-2022 14:23-0500 Body temperature 97 [degF] Dr. Margo Tatum Work Phone: [facility] 05-06-2022 14:23-0500 Body weight 95.[address] Margo Tatum Work Phone: [facility] 05-06-2022 14:23-0500 Diastolic blood pressure 67 mm[Hg] Dr. Margo Tatum Work Phone: [facility] 05-06-2022 14:23-0500 Heart rate 82 /min Dr. Margo Tatum Work Phone: [facility] 05-06-2022 14:23-0500 Respiratory rate 20 /min Dr. Margo Tatum Work Phone: [facility] 05-06-2022 14:23-0500 SaO2% (BldA) [Mass fraction] 98 % Dr. Margo Tatum Work Phone: [facility] 05-06-2022 14:23-0500 Systolic blood pressure 121 mm[Hg] Dr. Margo Tatum Work Phone: [facility] 04-13-2022 14:16-0500 Body height 162.[address] Margo Tatum Work Phone: [facility] Work Phone: 04-13-2022 14:16-0500 Body mass index (BMI) [Ratio] 35.9 kg/m2 Dr. Margo Tatum Work Phone: [facility] 04-13-2022 14:16-0500 Body weight 94.[address] Margo Tatum Work Phone: [facility] 04-13-2022 14:16-0500 Diastolic blood pressure 63 mm[Hg] Dr. Margo Tatum Work Phone: [facility] 04-13-2022 14:16-0500 Heart rate 73 /min Dr. Margo Tatum Work Phone: [facility] 04-13-2022 14:16-0500 Respiratory rate 18 /min Dr. Margo Tatum Work Phone: [facility] 04-13-2022 14:16-0500 Systolic blood pressure 120 mm[Hg] Dr. Margo Tatum Work Phone: [facility] 04-05-2022 20:28-0400 Diastolic blood pressure 86 mm[Hg] Dr. Margo Tatum Work Phone: [facility] 04-05-2022 20:28-0400 Systolic blood pressure 149 mm[Hg] Dr. Margo Tatum Work Phone: [facility] 04-05-2022 19:47-0400 Heart rate 76 /min Dr. Margo Tatum Work Phone: [facility] 04-05-2022 19:47-0400 Respiratory rate 19 /min Dr. Margo Tatum Work Phone: [facility] 04-05-2022 19:47-0400 SaO2% (BldA) [Mass fraction] 98 % Dr. Margo Tatum Work Phone: [facility] 04-05-2022 16:03-0400 Body height 162.[address] Margo Tatum Work Phone: [facility] Work Phone: 04-05-2022 16:03-0400 Body mass index (BMI) [Ratio] 36.7 kg/m2 Dr. Margo Tatum Work Phone: [facility] 04-05-2022 16:03-0400 Body temperature 98.3 [degF] Dr. Margo Tatum Work Phone: [facility] 04-05-2022 16:03-0400 Body weight 97.[address] Margo Tatum Work Phone: [facility] 02-24-2022 11:43-0400 Body mass index (BMI) [Ratio] 34.8 kg/m2 Dr. Margo Tatum Work Phone: [facility] Work Phone: 02-24-2022 11:43-0400 Body weight 92.[address] Margo Tatum Work Phone: [facility] Work Phone: 02-24-2022 11:43-0400 Diastolic blood pressure 72 mm[Hg] Dr. Margo Tatum Work Phone: [facility] [facility] Work Phone: 02-24-2022 11:43-0400 Heart rate 68 /min Dr. Margo Tatum Work Phone: [facility] Work Phone: 02-24-2022 11:43-0400 Respiratory rate 20 /min Dr. Margo Tatum Work Phone: [facility] Work Phone: 02-24-2022 11:43-0400 Systolic blood pressure 144 mm[Hg] Dr. Margo Tatum Work Phone: [facility] Work Phone: 01-25-2022 00:01-0400 Diastolic blood pressure 63 mm[Hg] Dr. Margo Tatum Work Phone: [facility] Work Phone: 01-25-2022 00:01-0400 Heart rate 79 /min Dr. Margo Tatum Work Phone: [facility] Work Phone: 01-25-2022 00:01-0400 Respiratory rate 16 /min Dr. Margo Tatum Work Phone: [facility] Work Phone: 01-25-2022 00:01-0400 SaO2% (BldA) [Mass fraction] 98 % Dr. Margo Tatum Work Phone: [facility] Work Phone: 01-25-2022 00:01-0400 Systolic blood pressure 151 mm[Hg] Dr. Margo Tatum Work Phone: [facility] Work Phone: 01-24-2022 20:22-0400 Body mass index (BMI) [Ratio] 35.6 kg/m2 Dr. Margo Tatum Work Phone: [facility] Work Phone: 01-24-2022 20:22-0400 Body temperature 98 [degF] Dr. Margo Tatum Work Phone: [facility] Work Phone: 01-24-2022 20:22-0400 Body weight 94.[address] Margo Tatum Work Phone: [facility] Work Phone: 01-12-2022 09:53-0400 Body mass index (BMI) [Ratio] 34.7 kg/m2 Dr. Margo Tatum Work Phone: [facility] Work Phone: 01-12-2022 09:53-0400 Body weight 91.[address] Margo Tatum Work Phone: [facility] Work Phone: 01-12-2022 09:53-0400 Diastolic blood pressure 70 mm[Hg] Dr. Margo Tatum Work Phone: [facility] Work Phone: 01-12-2022 09:53-0400 Heart rate 72 /min Dr. Margo Tatum Work Phone: [facility] Work Phone: 01-12-2022 09:53-0400 Systolic blood pressure 110 mm[Hg] Dr. Margo Tatum Work Phone: [facility] Work Phone: 12-29-2021 09:07-0400 Body mass index (BMI) [Ratio] 34 kg/m2 Dr. Margo Tatum Work Phone: [facility] Work Phone: 12-29-2021 09:07-0400 Body weight 89.[address] Margo Tatum Work Phone: [facility] Work Phone: 12-29-2021 09:07-0400 Diastolic blood pressure 73 mm[Hg] Dr. Margo Tatum Work Phone: [facility] Work Phone: 12-29-2021 09:07-0400 Heart rate 75 /min Dr. Margo Tatum Work Phone: [facility] Work Phone: 12-29-2021 09:07-0400 SaO2% (BldA) [Mass fraction] 96 % Dr. Margo Tatum Work Phone: [facility] Work Phone: 12-29-2021 09:07-0400 Systolic blood pressure 124 mm[Hg] Dr. Margo Tatum Work Phone: [facility] Work Phone: 11-17-2021 06:46-0400 Diastolic blood pressure 60 mm[Hg] Dr. Margo Tatum Work Phone: [facility] Work Phone: 11-17-2021 06:46-0400 Heart rate 64 /min Dr. Margo Tatum Work Phone: [facility] Work Phone: 11-17-2021 06:46-0400 Respiratory rate 16 /min Dr. Margo Tatum Work Phone: [facility] Work Phone: 11-17-2021 06:46-0400 SaO2% (BldA) [Mass fraction] 95 % Dr. Margo Tatum Work Phone: [facility] Work Phone: 11-17-2021 06:46-0400 Systolic blood pressure 97 mm[Hg] Dr. Margo Tatum Work Phone: [facility] Work Phone: 11-17-2021 04:42-0400 Body height 162.[address] Margo Tatum Work Phone: [facility] Work Phone: 11-17-2021 04:42-0400 Body mass index (BMI) [Ratio] 35.4 kg/m2 Dr. Margo Tatum Work Phone: [facility] Work Phone: 11-17-2021 04:42-0400 Body temperature 97 [degF] Dr. Margo Tatum Work Phone: [facility] Work Phone: 11-17-2021 04:42-0400 Body weight 93.[address] Margo Tatum Work Phone: [facility] Work Phone: 11-06-2021 18:46-0400 Heart rate 84 /min Dr. Margo Tatum Work Phone: [facility] Work Phone: 11-06-2021 18:46-0400 Respiratory rate 18 /min Dr. Margo Tatum Work Phone: [facility] Work Phone: 11-06-2021 18:46-0400 SaO2% (BldA) [Mass fraction] 98 % Dr. Margo Tatum Work Phone: [facility] Work Phone: 11-06-2021 18:20-0400 Body height 162.[address] Margo Tatum Work Phone: [facility] Work Phone: 11-06-2021 18:20-0400 Body mass index (BMI) [Ratio] 34.9 kg/m2 Dr. Margo Tatum Work Phone: [facility] Work Phone: 11-06-2021 18:20-0400 Body temperature 98.6 [degF] Dr. Margo Tatum Work Phone: [facility] Work Phone: 11-06-2021 18:20-0400 Body weight 92.[address] Margo Tatum Work Phone: [facility] Work Phone: 11-06-2021 18:20-0400 Diastolic blood pressure 86 mm[Hg] Dr. Margo Tatum Work Phone: [facility] Work Phone: 11-06-2021 18:20-0400 Systolic blood pressure 171 mm[Hg] Dr. Margo Tatum Work Phone: [facility] Work Phone: 10-15-2021 13:43-0400 Body height 165.[address] Margo Tatum Work Phone: [facility] Work Phone: 10-15-2021 13:43-0400 Body mass index (BMI) [Ratio] 32.8 kg/m2 Dr. Margo Tatum Work Phone: [facility] Work Phone: 10-15-2021 13:43-0400 Body weight 89.[address] Margo Tatum Work Phone: [facility] Work Phone: 10-15-2021 13:43-0400 Diastolic blood pressure 85 mm[Hg] Dr. Margo Tatum Work Phone: [facility] Work Phone: 10-15-2021 13:43-0400 Heart rate 70 /min Dr. Margo Tatum Work Phone: [facility] Work Phone: 10-15-2021 13:43-0400 Respiratory rate 22 /min Dr. Margo Tatum Work Phone: [facility] Work Phone: 10-15-2021 13:43-0400 SaO2% (BldA) [Mass fraction] 96 % Dr. Margo Tatum Work Phone: [facility] Work Phone: 10-15-2021 13:43-0400 Systolic blood pressure 135 mm[Hg] Dr. Margo Tatum Work Phone: [facility] Work Phone: 09-20-2021 21:41-0400 Diastolic blood pressure 82 mm[Hg] Dr. Magro Tatum Work Phone: [facility] Work Phone: 09-20-2021 21:41-0400 Heart rate 74 /min Dr. Margo Tatum Work Phone: [facility] Work Phone: 09-20-2021 21:41-0400 Respiratory rate 16 /min Dr. Margo Tatum Work Phone: [facility] Work Phone: 09-20-2021 21:41-0400 SaO2% (BldA) [Mass fraction] 94 % Dr. Margo Tatum Work Phone: [facility] Work Phone: 09-20-2021 21:41-0400 Systolic blood pressure 142 mm[Hg] Dr. Margo Tatum Work Phone: [facility] Work Phone: 09-20-2021 19:07-0400 Body height 165.[address] Margo Tatum Work Phone: [facility] Work Phone: 09-20-2021 19:07-0400 Body mass index (BMI) [Ratio] 32.3 kg/m2 Dr. Margo Tatum Work Phone: [facility] Work Phone: 09-20-2021 19:07-0400 Body temperature 97.1 [degF] Dr. Margo Tatum Work Phone: [facility] Work Phone: 09-20-2021 19:07-0400 Body weight 87.[address] Margo Tatum Work Phone: [facility] Work Phone: 09-16-2021 23:00-0400 Diastolic blood pressure 59 mm[Hg] Dr. Margo Tatum Work Phone: [facility] Work Phone: 09-16-2021 23:00-0400 Heart rate 65 /min Dr. Margo Tatum Work Phone: [facility] Work Phone: 09-16-2021 23:00-0400 Respiratory rate 18 /min Dr. Margo Tatum Work Phone: [facility] Work Phone: 09-16-2021 23:00-0400 SaO2% (BldA) [Mass fraction] 98 % Dr. Margo Tatum Work Phone: [facility] Work Phone: 09-16-2021 23:00-0400 Systolic blood pressure 100 mm[Hg] Dr. Margo Tatum Work Phone: [facility] Work Phone: 09-16-2021 20:44-0400 Body height 154.[address] Margo Tatum Work Phone: [facility] Work Phone: 09-16-2021 20:44-0400 Body mass index (BMI) [Ratio] 36.1 kg/m2 Dr. Margo Tatum Work Phone: [facility] Work Phone: 09-16-2021 20:44-0400 Body temperature 97.4 [degF] Dr. Margo Tatum Work Phone: [facility] Work Phone: 09-16-2021 20:44-0400 Body weight 86.[address] Margo Tatum Work Phone: [facility] Work Phone: 09-14-2021 14:17-0400 Body temperature 97.7 [degF] Dr. Margo Tatum Work Phone: [facility] Work Phone: 09-14-2021 14:17-0400 Diastolic blood pressure 62 mm[Hg] Dr. Margo Tatum Work Phone: [facility] Work Phone: 09-14-2021 14:17-0400 Heart rate 74 /min Dr. Margo Tatum Work Phone: [facility] Work Phone: 09-14-2021 14:17-0400 Respiratory rate 20 /min Dr. Margo Tatum Work Phone: [facility] Work Phone: 09-14-2021 14:17-0400 SaO2% (BldA) [Mass fraction] 98 % Dr. Margo Tatum Work Phone: [facility] Work Phone: 09-14-2021 14:17-0400 Systolic blood pressure 107 mm[Hg] Dr. Margo Tatum Work Phone: [facility] Work Phone: 09-14-2021 05:29-0400 Body weight 88.[address] Margo Tatum Work Phone: [facility] Work Phone: 09-11-2021 09:55-0400 Body height 162.[address] Margo Tatum Work Phone: [facility] Work Phone: 09-11-2021 06:00-0400 Inhaled oxygen concentration 25 % Dr. Margo Tatum Work Phone: [facility] Work Phone: 09-08-2021 23:47-0400 Body mass index (BMI) [Ratio] 35.4 kg/m2 Dr. Margo Tatum Work Phone: [facility] Work Phone: 09-08-2021 23:02-0400 Diastolic blood pressure 95 mm[Hg] Dr. Margo Tatum Work Phone: [facility] Work Phone: 09-08-2021 23:02-0400 Heart rate 103 /min Dr. Margo Tatum Work Phone: [facility] Work Phone: 09-08-2021 23:02-0400 Respiratory rate 21 /min Dr. Margo Tatum Work Phone: [facility] Work Phone: 09-08-2021 23:02-0400 Systolic blood pressure 145 mm[Hg] Dr. Margo Tatum Work Phone: [facility] Work Phone: 09-08-2021 22:51-0400 Body temperature 97.2 [degF] Dr. Margo Tatum Work Phone: [facility] Work Phone: 09-08-2021 22:51-0400 Inhaled oxygen concentration 100 % Dr. Margo Tatum Work Phone: [facility] Work Phone: 09-08-2021 22:51-0400 SaO2% (BldA) [Mass fraction] 98 % Dr. Margo Tatum Work Phone: [facility] Work Phone: 09-08-2021 19:59-0400 Body height 162.[address] Margo Tatum Work Phone: [facility] Work Phone: 09-08-2021 19:59-0400 Body mass index (BMI) [Ratio] 36.3 kg/m2 Dr. Margo Tatum Work Phone: [facility] Work Phone: 09-08-2021 19:59-0400 Body weight 96.[address] Margo Tatum Work Phone: [facility] Work Phone: 07-19-2021 10:40-0500 Body temperature 97.9 [degF] Dr. Margo Tatum Work Phone: [facility] Work Phone: 07-19-2021 10:40-0500 Diastolic blood pressure 56 mm[Hg] Dr. Margo Tatum Work Phone: [facility] Work Phone: 07-19-2021 10:40-0500 Heart rate 65 /min Dr. Margo Tatum Work Phone: [facility] Work Phone: 07-19-2021 10:40-0500 Respiratory rate 18 /min Dr. Margo Tatum Work Phone: [facility] Work Phone: 07-19-2021 10:40-0500 SaO2% (BldA) [Mass fraction] 97 % Dr. Margo Tatum Work Phone: [facility] Work Phone: 07-19-2021 10:40-0500 Systolic blood pressure 120 mm[Hg] Dr. Margo Tatum Work Phone: [facility] Work Phone: 07-18-2021 14:27-0500 Body weight 89.[address] Margo Tatum Work Phone: [facility] Work Phone: 07-17-2021 15:30-0500 Body mass index (BMI) [Ratio] 34 kg/m2 Dr. Margo Tatum Work Phone: [facility] Work Phone: 06-09-2021 09:17-0500 Body mass index (BMI) [Ratio] 35.5 kg/m2 Dr. Margo Tatum Work Phone: [facility] Work Phone: 06-09-2021 09:17-0500 Body temperature 98.3 [degF] Dr. Margo Tatum Work Phone: [facility] Work Phone: 06-09-2021 09:17-0500 Body weight 93.[address] Margo Tatum Work Phone: [facility] Work Phone: 06-09-2021 09:17-0500 Diastolic blood pressure 56 mm[Hg] Dr. Margo Tatum Work Phone: [facility] Work Phone: 06-09-2021 09:17-0500 Heart rate 80 /min Dr. Margo Tatum Work Phone: [facility] Work Phone: 06-09-2021 09:17-0500 Respiratory rate 18 /min Dr. Margo Tatum Work Phone: [facility] Work Phone: 06-09-2021 09:17-0500 SaO2% (BldA) [Mass fraction] 96 % Dr. Margo Tatum Work Phone: [facility] Work Phone: 06-09-2021 09:17-0500 Systolic blood pressure 121 mm[Hg] Dr. Margo Tatum Work Phone: [facility] Work Phone: 06-08-2021 12:35-0500 Body mass index (BMI) [Ratio] 35.2 kg/m2 Dr. Margo Tatum Work Phone: [facility] Work Phone: 06-08-2021 12:35-0500 Body weight 92.[address] Margo Tatum Work Phone: [facility] Work Phone: 06-08-2021 12:35-0500 Diastolic blood pressure 63 mm[Hg] Dr. Margo Tatum Work Phone: [facility] Work Phone: 06-08-2021 12:35-0500 Heart rate 90 /min Dr. Margo Tatum Work Phone: [facility] Work Phone: 06-08-2021 12:35-0500 Respiratory rate 20 /min Dr. Margo Tatum Work Phone: [facility] Work Phone: 06-08-2021 12:35-0500 SaO2% (BldA) [Mass fraction] 98 % Dr. Margo Tatum Work Phone: [facility] Work Phone: 06-08-2021 12:35-0500 Systolic blood pressure 145 mm[Hg] Dr. Margo Tatum Work Phone: [facility] Work Phone: 06-07-2021 15:55-0500 Diastolic blood pressure 79 mm[Hg] Dr. Margo Tatum Work Phone: [facility] Work Phone: 06-07-2021 15:55-0500 Heart rate 71 /min Dr. Margo Tatum Work Phone: [facility] Work Phone: 06-07-2021 15:55-0500 Respiratory rate 15 /min Dr. Margo Tatum Work Phone: [facility] Work Phone: 06-07-2021 15:55-0500 SaO2% (BldA) [Mass fraction] 96 % Dr. Margo Tatum Work Phone: [facility] Work Phone: 06-07-2021 15:55-0500 Systolic blood pressure 135 mm[Hg] Dr. Margo Tatum Work Phone: [facility] Work Phone: 06-07-2021 12:40-0500 Body temperature 97.6 [degF] Dr. Margo Tatum Work Phone: [facility] Work Phone: 06-07-2021 11:25-0500 Body mass index (BMI) [Ratio] 35.3 kg/m2 Dr. Margo Tatum Work Phone: [facility] Work Phone: 06-07-2021 11:25-0500 Body weight 93.[address] Margo Tatum Work Phone: [facility] Work Phone: 06-04-2021 14:38-0500 Diastolic blood pressure 75 mm[Hg] Dr. Margo Tatum Work Phone: [facility] Work Phone: 06-04-2021 14:38-0500 Heart rate 71 /min Dr. Margo Tatum Work Phone: [facility] Work Phone: 06-04-2021 14:38-0500 Respiratory rate 16 /min Dr. Margo Tatum Work Phone: [facility] Work Phone: 06-04-2021 14:38-0500 SaO2% (BldA) [Mass fraction] 95 % Dr. Margo Tatum Work Phone: [facility] Work Phone: 06-04-2021 14:38-0500 Systolic blood pressure 126 mm[Hg] Dr. Margo Tatum Work Phone: [facility] Work Phone: 06-04-2021 11:51-0500 Body mass index (BMI) [Ratio] 35.3 kg/m2 Dr. Margo Tatum Work Phone: [facility] Work Phone: 06-04-2021 11:51-0500 Body temperature 97.8 [degF] Dr. Margo Tatum Work Phone: [facility] Work Phone: 06-04-2021 11:51-0500 Body weight 93.[address] Margo Tatum Work Phone: [facility] Work Phone: 05-25-2021 13:16-0500 SaO2% (BldA) [Mass fraction] 94 % Dr. Margo Tatum Work Phone: [facility] Work Phone: 05-25-2021 13:00-0500 Body temperature 97.9 [degF] Dr. Margo Tatum Work Phone: [facility] Work Phone: 05-25-2021 13:00-0500 Diastolic blood pressure 80 mm[Hg] Dr. Margo Tatum Work Phone: [facility] Work Phone: 05-25-2021 13:00-0500 Heart rate 78 /min Dr. Margo Tatum Work Phone: [facility] Work Phone: 05-25-2021 13:00-0500 Respiratory rate 18 /min Dr. Margo Tatum Work Phone: [facility] Work Phone: 05-25-2021 13:00-0500 Systolic blood pressure 121 mm[Hg] Dr. Margo Tatum Work Phone: [facility] Work Phone: 05-25-2021 09:41-0500 Body weight 94.[address] Margo Tatum Work Phone: [facility] Work Phone: 05-22-2021 22:40-0500 Body mass index (BMI) [Ratio] 35.6 kg/m2 Dr. Margo Tatum Work Phone: [facility] Work Phone: 05-20-2021 07:56-0500 Respiratory rate 18 /min Dr. Margo Tatum Work Phone: [facility] Work Phone: 05-20-2021 04:53-0500 SaO2% (BldA) [Mass fraction] 96 % Dr. Margo Tatum Work Phone: [facility] Work Phone: 05-19-2021 14:04-0500 Heart rate 95 /min Dr. Margo Tatum Work Phone: [facility] Work Phone: 05-19-2021 05:29-0500 Body temperature 98 [degF] Dr. Margo Tatum Work Phone: [facility] Work Phone: 05-19-2021 05:29-0500 Diastolic blood pressure 69 mm[Hg] Dr. Margo Tatum Work Phone: [facility] Work Phone: 05-19-2021 05:29-0500 Systolic blood pressure 113 mm[Hg] Dr. Margo Tatum Work Phone: [facility] Work Phone: 05-18-2021 23:29-0500 Body mass index (BMI) [Ratio] 36.8 kg/m2 Dr. Margo Tatum Work Phone: [facility] Work Phone: 05-18-2021 23:29-0500 Body weight 97.[address] Margo Tatum Work Phone: [facility] Work Phone: Encounters Encounter Date Encounter Type Care Provider Facility Start: 01-29-2025 End: 01-29-2025 Dr. Cr Ho MD -[facility] Work Phone: Start: 01-29-2025 End: 01-29-2025 ambulatory Mehnaz Laughlin MD Work Phone: -[facility] Start: 01-23-2025 End: 01-23-2025 ambulatory Mehnaz Laughlin MD Work Phone: -Cat Scan [facility] Start: 01-23-2025 End: 01-23-2025 CLERICAL ADMINISTRATIVE ASSISTANT Susan Urena -Cat Scan [facility] Work Phone: Start: 01-22-2025 End: 01-23-2025 ambulatory Mehnaz Laughlin MD Work Phone: -Sleep Lab Start: 01-22-2025 End: 01-22-2025 CLERICAL ADMINISTRATIVE ASSISTANT Susan Urena -Sleep Lab Work Phone: Start: 01-22-2025 End: 01-22-2025 ambulatory Margo Tatum Facility:[facility] Start: 01-11-2025 End: 01-11-2025 Mehnaz Laughlin MD Work Phone: -Emergency Department Work Phone: Start: 01-11-2025 End: 01-11-2025 Emergency department patient visit Mehnaz Laughlin MD Work Phone: -Emergency Department Start: 01-11-2025 End: 01-11-2025 ambulatory Mehnaz Laughlin MD Work Phone: -Laboratory Start: 01-11-2025 End: 01-11-2025 CLERICAL ADMINISTRATIVE ASSISTANT Susan Urena -Laboratory Work Phone: Start: 01-11-2025 End: 01-11-2025 CLERICAL ADMINISTRATIVE ASSISTANT Susan Urena -[facility] Work Phone: Start: 01-11-2025 End: 01-11-2025 ambulatory Mehnaz Laughlin MD Work Phone: -[place] [facility] Start: 01-11-2025 End: 01-11-2025 ambulatory Susan Urena Facility:[facility] Start: 12-28-2024 ambulatory Herminio Magana Facility:[facility] Start: 12-28-2024 Dr. Herminio Magana DO -[facility] Start: 12-27-2024 End: 12-27-2024 ambulatory Mehnaz Laughlin MD Work Phone: -Pulmonary Services/Neurology Start: 12-27-2024 End: 12-27-2024 Dr. Herminio Magana DO -Pulmonary Services/Neurology Work Phone: Start: 12-27-2024 End: 12-27-2024 ambulatory Herminio Magana Facility:[facility] Start: 12-18-2024 End: 12-18-2024 ambulatory Mehnaz Laughlin MD Work Phone: -Pulmonary Services/Neurology Start: 12-18-2024 End: 12-18-2024 Dr. Herminio Brown DO -Pulmonary Services/Neurology Work Phone: Start: 12-17-2024 End: 12-18-2024 ambulatory Mehnaz Laughlin MD Work Phone: -[facility] Start: 12-17-2024 End: 12-17-2024 Dr. Cr Ho MD -[facility] Work Phone: Start: 2024 End: 2024 ambulatory Mehnaz Laughlin MD Work Phone: -Laboratory Start: 2024 End: 2024 Dr. Herminio Magana DO -Laboratory Work Phone: Start: 2024 End: 2024 Dr. Herminio Magana DO -[facility] [facility] Work Phone: Start: 2024 End: 2024 ambulatory Mehnaz Laughlin MD Work Phone: -[place] [facility] Start: 2024 End: 2024 ambulatory Herminio Magana Facility:[facility] Start: 12-06-2024 End: 12-06-2024 Mehnaz Laughlin MD Work Phone: -Emergency Department Work Phone: Start: 12-06-2024 End: 12-06-2024 Emergency department patient visit Mehnaz Laughlin MD Work Phone: -Emergency Department Start: 12-04-2024 Dr. Berenice del real MD -[place] [facility] Work Phone: Start: 12-01-2024 Dr. Aidan tan DO -[facility] Work Phone: Start: 12-01-2024 ambulatory Margo Malys Facility:[facility] Start: 12-01-2024 Dr. Estrellita Alarcon MD -[facility] Start: 11-30-2024 End: 12-01-2024 ambulatory Margo Malys Facility:[facility] Start: 11-30-2024 End: 12-01-2024 observation encounter Mehnaz Laughlin MD Work Phone: -Progressive Care Unit Start: 11-30-2024 End: 12-01-2024 Dr. Suma Mathew MD -[facility] Un it Work Phone: Start: 11-07-2024 End: 11-07-2024 Patient encounter procedure Mike Tom CLERICAL ADMINISTRATIVE ASSISTANT-C -[facility] Work Phone: Start: 11-07-2024 End: 11-07-2024 Mike Tom CLERICAL ADMINISTRATIVE ASSISTANT-C -[facility] Work Phone: Start: 11-07-2024 End: 11-07-2024 ambulatory Mehnaz Laughlin MD Work Phone: [facility] Work Phone: Start: 10-17-2024 End: 10-17-2024 ambulatory Mehnaz Laughlin MD Work Phone: [facility] Work Phone: Start: 10-17-2024 End: 10-17-[address] Cr Ho MD -[facility] Work Phone: Start: 10-17-2024 End: 10-17-2024 Dr. Cr Ho MD -[facility] Work Phone: Start: 10-15-2024 End: 10-15-2024 Dr. [...] 09-25-2024 ambulatory Mehnaz Laughlin MD Work Phone: [facility] Work Phone: Start: 09-24-2024 End: 09-24-2024 Patient encounter procedure Mike Tom CLERICAL ADMINISTRATIVE ASSISTANT-C -Ultrasound, [facility] Work Phone: Start: 09-24-2024 End: 09-24-2024 Mike Tom CLERICAL ADMINISTRATIVE ASSISTANT-C -Ultrasound [facility] Work Phone: Start: 09-24-2024 End: 09-24-2024 ambulatory Margo Malys Facility:[facility] Start: 09-12-2024 End: 09-12-2024 Patient encounter procedure Mike Tom CLERICAL ADMINISTRATIVE ASSISTANT-C -[facility] Work Phone: Start: 09-12-2024 End: 09-12-2024 Mike Tom CLERICAL ADMINISTRATIVE ASSISTANT-C -[facility] Work Phone: Start: 09-12-2024 End: 09-12-2024 ambulatory Margo Malys [place] Start: 09-11-2024 End: 09-11-2024 ambulatory Mehnaz Laughlin MD Work Phone: [facility] Work Phone: Start: 09-11-2024 End: 09-11-[address] Cr Ho MD -[facility] Work Phone: Start: 09-11-2024 End: 09-11-2024 Dr. Cr Ho MD -[facility] Work Phone: Start: 09-11-2024 Non-patient / Non-visit [facility]. Dam[facility] Work Phone: Start: 09-11-2024 Dr. Damaris Nielson [facility] Work Phone: Start: 09-10-2024 Non-patient / Non-visit Dr. Juarez [facility] Work Phone: Start: 09-10-[address] [facility] Work Phone: Start: 09-09-2024 ambulatory Carlos Uziela Facility:[facility] Start: 09-09-2024 End: 09-11-2024 Evaluation and management of inpatient Dr. Damaris Thibodeaux DO -Progressive Care Unit Work Phone: Start: 09-09-2024 End: 09-11-2024 Dr. Damaris Thibodeaux DO -Progressive Care Un it Work Phone: Start: 09-09-2024 Evaluation and management of inpatient Dr. Francine Steele MD -Progressive Care Unit Work Phone: Start: 09-09-2024 Non-patient / Non-visit Dr. Amara Steele MD -[facility] Work Phone: Start: 09-09-2024 Dr. Francine zabala MD -[facility] Work Phone: Start: 09-09-2024 ambulatory Francine Steele Facility :[facility] Start: 09-05-2024 End: 09-05-2024 ambulatory Margo Malys Facility:[facility] Start: 09-05-2024 End: 09-05-[address] [facility] Work Phone: Start: 09-05-2024 End: 09-05-2024 Dr. [facility] Work Phone: Start: 08-29-2024 End: 08-29-2024 ambulatory Mehnaz Laughlin MD Work Phone: [facility] Work Phone: Start: 08-29-2024 End: 08-29-[address] [facility] Work Phone: Start: 08-29-2024 End: 08-29-2024 Dr. [facility] Work Phone: Start: 08-14-2024 ambulatory Margo Malys Facility:[facility] Start: 07-05-2024 End: 07-05-2024 Patient encounter procedure Mike Tom CLERICAL ADMINISTRATIVE ASSISTANT-C -Laboratory Work Phone: Start: 07-05-2024 End: 07-05-2024 [facility] Start: 06-13-2024 End: 06-13-2024 Patient encounter procedure Mike Tom CLERICAL ADMINISTRATIVE ASSISTANT-C -[facility] Work Phone: Start: 06-13-2024 End: 06-13-2024 ambulatory Margo Malys Facility:[facility] Start: 06-11-2024 End: 06-11-2024 ambulatory Margo Malys Facility:[facility] Start: 06-11-2024 End: 06-11-[address] Cr Ho MD -[facility] Work Phone: Start: 05-30-2024 End: 05-30-2024 Emergency department patient visit Dr. Miguel Conroy -Emergency Department Work Phone: Start: 04-04-2024 End: 04-04-2024 ambulatory Margo Malys [facility] Start: 03-27-2024 End: 03-27-2024 [facility] Start: 09-09-2023 Dr. Margo Tatum Work Phone: [facility] Work Phone: Start: 09-08-2023 Dr. Margo Tatum Work Phone: [facility] Work Phone: Start: 09-07-2023 Dr. Margo Tatum Work Phone: [facility] Work Phone: Start: 09-06-2023 Non-patient / Non-visit Dr. Annabella Tatum Work Phone: [facility] Work Phone: Start: 09-06-2023 End: 09-10-2023 Evaluation and management of inpatient Dr. Margo Tatum Work Phone: [facility]-Intensive Care Unit Work Phone: Start: 09-06-2023 End: 09-10-2023 Dr. Margo Tatum [facility] Work [facility]: Start: 08-29-2023 Non-patient / Non-visit Dr. Annabella Tatum Work Phone: [facility] Work Phone: Start: 08-29-2023 Dr. Margo Tatum Work Phone: [facility] Work Phone: Start: 08-28-2023 Non-patient / Non-visit Dr. Annabella Tatum Work Phone: [facility] Work Phone: Start: 08-28-2023 Dr. Margo Tatum Work Phone: [facility] Work Phone: Start: 08-27-2023 Non-patient / Non-visit Dr. Annabella Tatum Work Phone: [facility] Work Phone: Start: 08-27-2023 Dr. Margo Tatum Work Phone: [facility] Work Phone: Start: 08-26-2023 End: 08-29-2023 Evaluation and management of inpatient Dr. Margo Tatum Work Phone: [facility] Work Phone: Start: 08-26-2023 End: 08-29-2023 Dr. Margo Tatum Work Phone: [facility] Work Phone: Start: 08-11-2023 End: 08-11-[address] Margo Tatum Work Phone: [facility] Work Phone: Start: 08-11-2023 End: 08-11-[address] Margo Tatum Work Phone: [facility] Work Phone: Start: 08-11-2023 End: 08-11-2023 Dr. Margo Tatum Work Phone: [facility] Work Phone: Start: 08-02-2023 End: 08-02-2023 Emergency department patient visit Dr. Margo Tatum Work Phone: [facility]-Emergency Department Work Phone: Start: 08-02-2023 End: 08-02-2023 Dr. Margo Tatum Work Phone: [facility]-Emergency Department Work Phone: Start: 07-25-2023 End: 07-25-[address] Margo Tatum Work Phone: [facility] Work Phone: Start: 07-25-2023 End: 07-25-2023 Dr. Margo Tatum Work Phone: [facility] Work Phone: Start: 07-15-2023 End: 07-15-[address] Margo Tatum Work Phone: [facility] Work Phone: Start: 07-15-2023 End: 07-15-[address] Margo Tatum Work Phone: [facility]-Radiology, [facility] Work Phone: Start: 07-15-2023 End: 07-15-2023 Dr. Margo Tatum Work Phone: [facility]-Radiology, [facility] Work Phone: Start: 06-24-2023 End: 06-24-[address] Margo Tatum Work Phone: [facility]-Laboratory, Specimen Work Phone: Start: 06-24-2023 End: 06-24-2023 Dr. Margo Tatum Work Phone: [facility]-Laboratory, Specimen Work Phone: Start: 06-24-2023 End: 06-24-[address] Margo Tatum Work Phone: [facility] Work Phone: Start: 06-24-2023 End: 06-24-2023 Dr. Margo Tatum Work Phone: [facility] Work Phone: Start: 06-13-2023 End: 06-13-[address] Margo Tatum Work Phone: [facility] Work Phone: Start: 06-13-2023 End: 06-13-2023 Dr. Margo Tatum Work Phone: [facility] Work Phone: Start: 05-19-2023 End: 05-19-[address] Margo Tatum Work Phone: [facility] Work Phone: Start: 05-19-2023 End: 05-19-[address] Margo Tatum Work Phone: [facility] Work Phone: Start: 05-19-2023 End: 05-19-2023 Dr. Margo Tatum Work Phone: [facility]-Ultrasound, [facility] Work Phone: Start: 05-18-2023 End: 05-18-2023 Emergency department patient visit Dr. Margo Tatum Work Phone: [facility]-Emergency Department Work Phone: Start: 05-18-2023 End: 05-18-2023 Dr. Margo Tatum Work Phone: [facility]-Emergency Department Work Phone: Start: 05-11-2023 End: 05-11-[address] Margo Tatum Work Phone: [facility] Work Phone: Start: 04-29-2023 End: 04-29-[address] Margo Tatum Work Phone: [facility] Work Phone: Start: 03-08-2023 End: 03-08-[address] Margo Tatum Work Phone: [facility] Work Phone: Start: 01-26-2023 End: 01-26-[address] Margo Tatum Work Phone: [facility] Work Phone: Start: 12-20-[address] Margo Tatum Work Phone: [facility]-Laboratory Work Phone: Start: 12-16-2022 Non-patient / Non-visit Dr. Annabella Tatum Work Phone: [facility] Work Phone: Start: 12-16-2022 Non-patient / Non-visit Dr. Annabella Tatum Work Phone: [facility] Start: 12-16-2022 End: 12-16-[address] Margo Tatum Work Phone: [facility] Work Phone: Start: 12-16-2022 End: 12-16-[address] Margo Tatum Work Phone: [facility]-Cardiovascular Services Work Phone: Start: 10-20-2022 End: 10-20-[address] Margo Tatum Work Phone: [facility] Work Phone: Start: 10-18-2022 End: 10-18-2022 Emergency department patient visit Dr. Margo Tatum Work Phone: [facility]-Emergency Department Start: 10-07-2022 End: 10-07-2022 Emergency department patient visit Dr. Margo Tatum Work Phone: [facility]-Emergency Department Start: 10-07-2022 End: 10-07-[address] Margo Tatum Work Phone: [facility] Work Phone: Start: 10-07-2022 End: 10-07-[address] Margo Tatum Work Phone: [facility]-Outpatient Bone Densitometry Start: 10-04-2022 ambulatory MARGO TATUM Facility:[facility] Start: 10-01-2022 End: 10-01-[address] Margo Tatum Work Phone: [facility] Work Phone: Start: 10-01-2022 End: 10-01-[address] Margo Tatum Work Phone: [facility]-Laboratory Start: 09-23-2022 End: 09-23-[address] Margo Tatum Work Phone: [facility] Endocrinology Start: 09-20-2022 End: 09-20-2022 Emergency department patient visit MARGO TATUM Facility:[facility] Start: 09-20-2022 End: 09-20-2022 Emergency department patient visit Rupali Shaw MD, PhD Work Phone: [facility] Emergency Department Start: 09-20-2022 ambulatory LIZBETH ACEVEDO Facilit y:[facility] Start: 09-14-2022 End: 09-14-[address] Margo Tatum Work Phone: [facility] Start: 09-06-2022 End: 09-06-2022 Emergency department patient visit Dr. Margo Tatum Work Phone: [facility]-Emergency Department Start: 09-02-2022 Non-patient / Non-visit Dr. Annabella Tatum Work Phone: [facility] Start: 09-02-2022 End: 09-02-2022 Emergency department patient visit Dr. Margo Tatum Work Phone: [facility]-Emergency Department Start: 08-26-2022 End: 08-26-[address] Margo Tatum Work Phone: [facility] Start: 08-18-2022 End: 08-18-2022 ambulatory MARGO TATUM Facility:[facility] Start: 08-18-2022 End: 08-18-2022 Subsequent hospital visit by physician Serafin Padron MD Work Phone: [facility] Comment on above: Other cardiomyopathy Start: 08-07-2022 Non-patient / Non-visit Dr. Annabella Tatum Work Phone: [facility] Start: 08-07-2022 Non-patient / Non-visit Dr. Annabella Tatum Work Phone: [facility] Start: 08-06-2022 End: 08-06-2022 Non-patient / Non-visit Dr. Margo Tatum Work Phone: [facility] Start: 08-06-2022 Non-patient / Non-visit Dr. Annabella Tatum Work Phone: [facility] Start: 08-06-2022 End: 08-07-2022 Evaluation and management of inpatient Dr. Margo Tatum Work Phone: [facility]-Progressive Care Unit Start: 08-06-2022 End: 08-07-[address] Margo Tatum Work Phone: [facility] Work Phone: Start: 07-30-2022 End: 07-30-[address] Margo Tatum Work Phone: [facility] Work Phone: Start: 07-30-2022 End: 07-30-[address] Margo Tatum Work Phone: [facility]-Laboratory Start: 07-20-2022 ambulatory MARGO TATUM Facility:[facility] Start: 06-30-2022 End: 06-30-2022 Emergency department patient visit Dr. Margo Tatum Work Phone: [facility]-Emergency Department Start: 06-09-2022 End: 06-09-[address] Margo Tatum Work Phone: [facility] Endocrinology Start: 06-03-2022 End: 06-03-[address] Margo Tatum Work Phone: [facility] Work Phone: Start: 06-03-2022 End: 06-03-[address] Margo Tatum Work Phone: [facility]-Laboratory Start: 05-25-2022 End: 05-25-[address] Margo Tatum Work Phone: [facility] Work Phone: Start: 05-25-2022 End: 05-25-[address] Margo Tatum [facility] Start: 05-19-2022 End: 05-19-[address] Margo Tatum Work Phone: [facility] Work Phone: Start: 05-19-2022 End: 05-19-[address] Margo Tatum [facility] Start: 05-19-2022 End: 05-19-[address] Margo Tatum Work Phone: [facility] Start: 05-18-2022 End: 05-18-[address] Margo Tatum [facility] Start: 05-18-2022 End: 05-18-[address] Margo Tatum Work Phone: [facility] Start: 05-08-2022 End: 05-08-2022 Emergency department patient visit Dr. Margo Tatum Work Phone: [facility]-Emergency Department Start: 05-06-2022 End: 05-06-[address] Margo Tatum [facility] Start: 05-06-2022 End: 05-06-[address] Margo Tatum Work Phone: [facility] Endocrinology Start: 05-06-2022 ambulatory [facility] Facility:[facility] Start: 04-22-2022 Non-patient / Non-visit Dr. Annabella Tatum Work Phone: [facility] Start: 04-22-2022 End: 04-22-[address] Margo Tatum Work Phone: [facility] Work Phone: Start: 04-22-2022 End: 04-22-[address] Margo Tatum Work Phone: [facility]-Cardiovascular Services Start: 04-13-2022 End: 04-13-[address] Margo Tatum Work Phone: [facility] Work Phone: Start: 04-13-2022 End: 04-13-[address] Margo Tatum Work Phone: [facility]-Laboratory Start: 04-13-2022 End: 04-13-[address] Margo Tatum Work Phone: [facility] Start: 04-12-2022 End: 04-12-[address] Margo Tatum Work Phone: [facility] Work Phone: Start: 04-12-2022 End: 04-12-[address] Margo Tatum Work Phone: [facility] Start: 04-05-2022 End: 04-05-2022 Emergency department patient visit Dr. Margo Tatum Work Phone: [facility]-Emergency Department Start: 03-09-2022 Non-patient / Non-visit Dr. Annabella Tatum Work Phone: [facility] Start: 03-09-2022 End: 03-09-[address] Margo Tatum Work Phone: [facility] Work Phone: Start: 03-09-2022 End: 03-09-[address] Margo Tatum [facility] Start: 02-24-2022 End: 02-24-[address] Margo Tatum Work Phone: [facility] Work Phone: Start: 02-24-2022 End: 02-24-[address] Margo Tatum Work Phone: [facility], [facility] Start: 02-24-2022 End: 02-24-[address] Margo Tatum Work Phone: [facility] Start: 02-09-2022 End: 02-09-[address] Margo Tatum Work Phone: [facility] Gastroenterology Start: 01-24-2022 End: 01-25-2022 Emergency department patient visit Dr. Margo Tatum Work Phone: [facility]-Emergency Department Start: 01-17-[address] Margo knight [facility] Start: 01-17-2022 Non-patient / Non-visit Dr. Annabella Tatum Work Phone: [facility] Start: 01-12-2022 End: 01-12-[address] Margo Tatum Work Phone: [facility] Start: 12-29-2021 End: 12-29-[address] Margo Tatum Work Phone: [facility] Gastroenterology Start: 11-17-2021 End: 11-17-2021 Emergency department patient visit Dr. Margo Tatum Work Phone: [facility]-Emergency Department Start: 11-06-2021 End: 11-06-2021 Emergency department patient visit Dr. Margo Tatum Work Phone: [facility]-Emergency Department Start: 10-27-2021 End: 10-27-[address] Margo Tatum Work Phone: [facility]-Laboratory Start: 10-15-2021 End: 10-15-[address] Margo Tatum Work Phone: [facility] Start: 09-20-2021 End: 09-20-2021 Emergency department patient visit Dr. Margo Tatum [facility] Start: 09-16-2021 End: 09-16-2021 Emergency department patient visit Dr. Margo Tatum [facility] Start: 09-14-2021 Non-patient / Non-visit Dr. Annabella Tatum Work Phone: [facility] Start: 09-14-2021 Non-patient / Non-visit Dr. Annabella Tatum Work Phone: [facility] Start: 09-13-2021 Non-patient / Non-visit Dr. Annabella Tatum Work Phone: [facility] Start: 09-13-2021 Non-patient / Non-visit Dr. Annabella Tatum Work Phone: [facility] Start: 09-12-2021 Non-patient / Non-visit Dr. Annabella Tatum Work Phone: [facility] Start: 09-12-2021 Non-patient / Non-visit Dr. Annabella Tatum Work Phone: [facility] Start: 09-12-2021 Non-patient / Non-visit Dr. Annabella Tatum Work Phone: [facility] Start: 09-11-2021 Non-patient / Non-visit Dr. Annabella Tatum Work Phone: [facility] Start: 09-11-2021 Non-patient / Non-visit Dr. Annabella Tatum Work Phone: [facility] Start: 09-11-2021 Non-patient / Non-visit Dr. Annabella Tatum Work Phone: [facility] Start: 09-10-2021 Non-patient / Non-visit Dr. Annabella Tatum Work Phone: [facility] Start: 09-10-2021 Non-patient / Non-visit Dr. Annabella Tatum Work Phone: [facility] Start: 09-10-2021 Non-patient / Non-visit Dr. Annabella Tatum Work Phone: [facility] Start: 09-09-2021 Non-patient / Non-visit Dr. Annabella Tatum Work Phone: [facility] Start: 09-09-2021 Non-patient / Non-visit Dr. Annabella Tatum Work Phone: [facility] Start: 09-08-2021 End: 09-14-2021 Evaluation and management of inpatient Dr. Margo Tatum Work Phone: [facility]-Intensive Care Unit Start: 09-08-2021 Non-patient / Non-visit Dr. Annabella Tatum Work Phone: [facility] Start: 07-30-2021 End: 07-30-[address] Margo Tatum Work Phone: [facility]-Laboratory, Specimen Start: 07-19-2021 Non-patient / Non-visit Dr. Annabella Tatum Work Phone: [facility] Start: 07-18-2021 Non-patient / Non-visit Dr. Annabella Tatum Work Phone: [facility] Start: 07-17-2021 Non-patient / Non-visit Dr. Annabella Tatum Work Phone: [facility] Start: 07-17-2021 End: 07-19-2021 Evaluation and management of inpatient Dr. Margo Tatum Work Phone: [facility]-Progressive Care Unit Start: 07-08-2021 End: 08-03-[address] Margo Tatum Work Phone: [facility]-Cardiac Rehab Start: 07-07-2021 End: 07-07-[address] Margo Tatum Work Phone: [facility]-Laboratory, [place] Start: 07-06-2021 End: 07-06-[address] Margo Tatum [facility] Start: 06-16-2021 End: 06-16-[address] Margo Tatum Work Phone: [facility]-Ultrasound, [facility] Start: 06-09-2021 End: 06-09-[address] Margo Tatum Work Phone: [facility]-Cardiac Rehab Start: 06-08-2021 End: 06-08-[address] Margo Tatum Work Phone: [facility] Start: 06-07-2021 End: 06-07-2021 Emergency department patient visit Dr. Margo Tatum Work Phone: [facility]-Emergency Department Start: 06-04-2021 End: 06-04-2021 Emergency department patient visit Dr. Margo Tatum Work Phone: [facility]-Emergency Department Start: 05-25-2021 Non-patient / Non-visit Dr. Annabella Tatum Work Phone: [facility] Start: 05-25-2021 Non-patient / Non-visit Dr. Annabella Tatum Work Phone: [facility] Start: 05-24-2021 Non-patient / Non-visit Dr. Annabella Tatum Work Phone: [facility] Start: 05-23-2021 Non-patient / Non-visit Dr. Annabella Tatum Work Phone: [facility] Start: 05-22-2021 End: 05-25-2021 Evaluation and management of inpatient Dr. Margo Tatum Work Phone: [facility] Start: 05-22-2021 Non-patient / Non-visit Dr. Annabella Tatum Work Phone: [facility] Start: 05-20-2021 Non-patient / Non-visit Dr. Annabella Tatum Work Phone: [facility] Start: 05-19-2021 Non-patient / Non-visit Dr. Annabella Tatum Work Phone: [facility] Start: 05-19-2021 Non-patient / Non-visit Dr. Annabella Tatum Work Phone: [facility] Start: 05-18-2021 End: 05-20-2021 Evaluation and management of inpatient Dr. Margo Tatum Work Phone: [facility] Start: 05-18-2021 Non-patient / Non-visit Dr. Annabella Tatum Work Phone: [facility] Start: 11-12-2011 Evaluation and management of inpatient Dr. Margo Tatum Work Phone: [facility]- Start: 11-12-2011 Dr. Margo Tatum Work Phone: [facility]- Procedures Date Procedure Procedure Detail Performing Clinician Start: 01-23-2025 CT of chest without contrast Mehnaz russell MD Work Phone: Start: 01-11-2025 CT angiography of chest with contrast Mehnaz Laughlin MD Work Phone: Start: 01-11-2025 X-ray of chest, PA and lateral views Mehnaz Laughlin MD Work Phone: Start: 01-11-2025 Blood count smear mcrscp w/mnl difrntl wbc count Mehnaz Laughlin MD Work Phone: Start: 01-11-2025 Estimated creatinine clearance Mehnaz Laughlin MD Work Phone: Start: 01-11-2025 Mean corpuscular hemoglobin concentration determination Mehnaz Laughlin MD Work Phone: Start: 01-11-2025 Nucleated red blood cell count procedure Mehnaz Laughlin MD Work Phone: Start: 01-11-2025 Platelet mean volume determination Mehnaz Laughlin MD Work Phone: Start: 01-11-2025 Triacylglycerol lipase measurement Mehnaz Laughlin MD Work Phone: Start: 12-06-2024 X-ray of chest, PA and lateral views Mehnaz Laughlin MD Work Phone: Start: 12-06-2024 Blood count smear mcrscp w/mnl difrntl wbc count Mehnaz Laughlin MD Work Phone: Start: 12-06-2024 Estimated creatinine clearance Mehnaz Laughlin MD Work Phone: Start: 12-06-2024 Mean corpuscular hemoglobin concentration determination Mehnaz Laughlin MD Work Phone: Start: 12-06-2024 Nucleated red blood cell count procedure Mehnaz Laughlin MD Work Phone: Start: 12-06-2024 Platelet mean volume determination Mehnaz Laughlin MD Work Phone: Start: 12-01-2024 Glucose measurement Mehnaz Laughlin MD Work Phone: Start: 12-01-2024 Assay of triglycerides Mehnaz Laughlin MD Work Phone: Start: 12-01-2024 Total cholesterol:HDL ratio measurement Mehnaz Laughlin MD Work Phone: Start: 11-30-2024 Urine microscopy: red cells Mehnaz Laughlin MD Work Phone: Start: 11-30-2024 Urnls dip stick/tablet reagent auto microscopy Mehnaz Laughlin MD Work Phone: Start: 11-30-2024 Plain chest X-ray Mehnaz Laughlin MD Work Phone: Start: 11-30-2024 Blood [...] Mehnaz Laughlin MD Work Phone: Start: 11-30-2024 Nucleic acid assay Mehnaz Laughlin MD Work Phone: Start: 11-30-2024 Urine culture Mehnaz Laughlin MD Work Phone: Start: 11-30-2024 [...] Work Phone: Comment on above: Test Ordered: [id number]+S I5Ccceadjbsjtx Screen, Urine Negative ng/mL UI Reference Range: [id number] test includes Amphetamine and Methamphetamine.Barbiturates Negative ng/mL UI Reference Range: [id number]=[id number] Negative ng/mL UI Reference Range: [id number] (Metab.), Urine Negative ng/mL UI Reference Range: [id number] Note: ng/mL UI See Final Results Reference Range: [id number]=[id number] test includes Codeine, Morphine, Hydromorphone, Hydrocodone.Opiates Positive [A ] UI Reference Range: [id number]=715Yhhimt test includes Codeine, Morphine, Hydromorphone, Hydrocodone.Codeine Negative UI Reference Range: [id number]=990Xancprmw Negative UI Reference Range: [id number] Positive [A ] UI Reference Range: .Hydromorphone Conf, MS, UR 108 ng/mL UI Reference Range: [id number]=487Faksanjeboy Positive [A ] UI Reference Range: .Hydrocodone Conf, MS, UR 553 ng/mL UI Reference Range: [id number]-Jwvgrciwoovrkz, Urine Negative ng/mL UI Reference Range: Cutoff=10Oxycodone/Oxymorphone, Urine Negative ng/mL UI Reference Range: Iafgtk=921Ptng includes Oxycodone and OxymorphonePCP, Urine Negative ng/mL UI Reference Range: Cutoff=25Methadone Screen, Urine Negative ng/mL UI Reference Range: Vcjlni=741Koamszhwvfgr, Urine Negative ng/mL UI Reference Range: Mzqsze=705Huupuufw, Urine Negative ng/mL UI Reference Range: Cutoff=2.0Test includes Fentanyl and NorfentanylThis test was developed and its performance characteristicsdetermined by [facility]. It has not been cleared orapproved by the Food and Drug Administration.Tramadol Negative ng/mL UI Reference Range: Kiadar=220Eizlrlxlalesn, Urine Negative ng/mL UI Reference Range: Cutoff=10Creatinine, Urine 74.4 mg/dL UI Reference Range: 20.0-300.0pH, Urine 5.4 UI Reference Range: 4.5-8.9Performed at: [facility] [id number] [place], [place] [id number] Director: Rand Jaquez PhD, Phone: [phone] at: [address] [id number] Director: Vargas Kim PhD, Phone: [phone] Start: 09-25-2024 Urine cannabinoid measurement Mehnaz dallas [...] 09-09-2024 CT angiography of chest with contrast Mehnaz Laughlin MD Work Phone: Start: 09-09-2024 Plain [...] Start: 05-19-2023 US scan of thyroid Dr. Margo Tatum Work Phone: Start: 05-18-2023 Plain chest [...] Start: 08-18-2022 CBC AND ELECTRONIC DIFF Madhuri Neves n ORGANIZATIONAL EFFECTIVENESS DIRECTOR-FASHION ARTIST Work Phone: Start: 08-18-2022 Complete blood count with white cell differential, automated Madhuri Prakash Anthony ORGANIZATIONAL EFFECTIVENESS DIRECTOR-FASHION ARTIST Work Phone: Start: 08-18-2022 Creatinine blood Madhuriedgar Cruz ORGANIZATIONAL EFFECTIVENESS DIRECTOR-FASHION ARTIST Work Phone: Start: 08-07-2022 Cardiovascular stress test [...] History of coronary artery stent placement Dr. Cr Ho MD Comment on above: PCI-BEATRICE-Mid LAD w/ 2.5 [...] Detail Author Start: 03-25-2026 Tetanus vaccination TETANUS [facility] Start: 02-25-2025 ambulatory Facility:[facility] Start: 01-11-2025 [facility] Start: 01-11-2025 [facility] Start: 12-27-2024 Walking distance 6 minutes [facility] Start: 12-18-2024 Measurement of respiratory function [facility] Start: 12-06-2024 [facility] Start: 12-06-2024 [facility] Start: 12-01-2024 Patient discharge [facility] Start: 11-30-2024 End: 11-30-2024 [facility] Start: 11-30-2024 Following clinical pathway protocol [facility] Start: 11-30-2024 Assessment of risk of venous thromboembolism [facility] Start: 11-30-2024 Care regimes management [facility] Start: 11-30-2024 Elevation of affected extremity [facility] Start: 11-30-2024 Incentive spirometry [facility] Start: 11-30-2024 Inhalation therapy procedure [facility] Start: 11-30-2024 Insertion of catheter into peripheral vein [facility] Start: 11-30-2024 Measuring intake and output [facility] Start: 11-30-2024 Notification of physician [facility] Start: 11-30-2024 Patient education [facility] Start: 11-30-2024 Providing care according to standard [facility] Start: 11-30-2024 Provision of activity privileges [facility] Start: 11-30-2024 Admission procedure [facility] Start: 11-30-2024 Hospital admission, emergency, from emergency room, medical nature [facility] Start: 11-30-2024 End: 11-30-2024 [facility] Start: 11-30-2024 Iv infusion hydration initial 31 min-1 hour [facility] Start: 10-15-2024 [facility] Start: 10-15-2024 End: 10-15-2024 [facility] Start: 09-25-2024 Procedure [facility] Start: 09-11-2024 Patient discharge [facility] Start: 09-10-2024 [facility] Start: 09-10-2024 [facility] Start: 09-09-2024 Following clinical pathway protocol [facility] Start: 09-09-2024 Assessment of risk of venous thromboembolism [facility] Start: 09-09-2024 Care regimes management [facility] Start: 09-09-2024 Insertion of catheter into peripheral vein [facility] Start: 09-09-2024 Measuring intake and output [facility] Start: 09-09-2024 Notification of physician [facility] Start: 09-09-2024 Oxygen therapy [facility] Start: 09-09-2024 Providing care according to standard [facility] Start: 09-09-2024 Provision of activity privileges [facility] Start: 09-09-2024 Referral to occupational therapist [facility] Start: 09-09-2024 Referral to service [facility] Start: 09-09-2024 End: 09-09-2024 [facility] Start: 09-09-2024 Verification routine [facility] Start: 09-09-2024 Admission procedure [facility] Start: 09-09-2024 Hospital admission, emergency, from emergency room, medical nature [facility] Start: 09-09-2024 [facility] Start: 09-09-2024 [facility] Start: 09-09-2024 Inhalation therapy procedure [facility] Start: 05-30-2024 [facility] Start: 09-21-2023 Potassium [Moles/volume] in Serum or Plasma POTASSIUM [facility] Start: 09-10-2023 Patient discharge [facility] Start: 09-06-2023 Application of intermittent pneumatic compression device [facility] Start: 09-06-2023 Following clinical pathway protocol [facility] Start: 09-06-2023 Ambulation without limitation [facility] Start: 09-06-2023 Assessment of risk of venous thromboembolism [facility] Start: 09-06-2023 Care regimes management [facility] Start: 09-06-2023 Consultation [facility] Start: 09-06-2023 Documentation procedure [facility] Start: 09-06-2023 Insertion of catheter into peripheral vein [facility] Start: 09-06-2023 Measuring intake and output [facility] Start: 09-06-2023 Notification of physician [facility] Start: 09-06-2023 Providing care according to standard [facility] Start: 09-06-2023 [facility] Start: 09-06-2023 Verification routine [facility] Start: 09-06-2023 Admission procedure [facility] Start: 09-06-2023 Hospital admission, emergency, from emergency room, medical nature [facility] Start: 09-06-2023 Bacteria identified in Urine by Culture [facility] Start: 09-06-2023 [facility] Start: 09-06-2023 Prothrombin time [facility] Start: 09-06-2023 Consultation [facility] Start: 08-29-2023 Patient discharge [facility] Start: 08-28-2023 Application of intermittent pneumatic compression device [facility] Start: 08-28-2023 Removal of urinary catheter [facility] Start: 08-27-2023 Irrigation of urinary bladder [facility] Start: 08-26-2023 Following clinical pathway protocol [facility] Start: 08-26-2023 Assessment of risk of venous thromboembolism [facility] Start: 08-26-2023 Care regimes management [facility] Start: 08-26-2023 Consultation [facility] Start: 08-26-2023 Incentive spirometry [facility] Start: 08-26-2023 Inhalation therapy procedure [facility] Start: 08-26-2023 Insertion of catheter into peripheral vein [facility] Start: 08-26-2023 Introduction of urinary catheter [facility] Start: 08-26-2023 Irrigation of urinary bladder [facility] Start: 08-26-2023 Measuring intake and output [facility] Start: 08-26-2023 Notification of physician [facility] Start: 08-26-2023 Providing care according to standard [facility] Start: 08-26-2023 Provision of activity privileges [facility] Start: 08-26-2023 Referral to service [facility] Start: 08-26-2023 [facility] Start: 08-26-2023 Hospital admission, emergency, from emergency room, medical nature [facility] Start: 08-26-2023 Verification routine [facility] Start: 08-26-2023 Admission procedure [facility] Start: 08-26-2023 End: 08-27-2023 [facility] Start: 08-26-2023 Bacteria identified in Urine by Culture [facility] Start: 08-26-2023 Urine culture Urine Culture [facility] Start: 08-02-2023 [facility] Start: 08-02-2023 End: 08-02-2023 [facility] Start: 06-24-2023 Patient referral [facility] Work Phone: Start: 05-18-2023 [facility] Start: 02-04-2023 Influenza vaccination INFLUENZA VACCINE (Season Ended) [facility] Start: 12-20-2022 Procedure [facility] Start: 10-07-2022 Dual energy X-ray absorptiometry Dexa Bone Density Study [facility] Start: 10-07-2022 DXA Bone [Mass/Area] Bone density [facility] Start: 09-20-2022 End: 09-20-2022 Patient encounter procedure 09/20/2022 Office Visit Cardiovascular Medicine Lizbeth Acevedo MD [address] [place] [address] [id number] [employer] [facility] Start: 08-07-2022 Patient discharge [facility] Start: 08-07-2022 Blood chemistry [facility] Start: 08-07-2022 Cardiovascular stress test using pharmacologic stress agent Nuclear Stress Test - Chemical [facility] Start: 08-07-2022 Verification routine [facility] Start: 08-07-2022 Care regimes management [facility] Start: 08-07-2022 Notification of physician [facility] Start: 08-07-2022 [facility] Start: 08-06-2022 Following clinical pathway protocol [facility] Start: 08-06-2022 Assessment of risk of venous thromboembolism [facility] Start: 08-06-2022 Insertion of catheter into peripheral vein [facility] Start: 08-06-2022 Measuring intake and output [facility] Start: 08-06-2022 Oxygen therapy [facility] Start: 08-06-2022 Providing care according to standard [facility] Start: 08-06-2022 Tobacco use cessation education [facility] Start: 08-06-2022 [facility] Start: 08-06-2022 Electrocardiographic procedure [facility] Start: 08-06-2022 Verification routine [facility] Start: 08-06-2022 Admission procedure [facility] Start: 04-05-2022 [facility] Start: 02-04-2022 Influenza vaccination INFLUENZA VACCINE (#1) [facility] Start: 01-24-2022 [facility] Work Phone: Start: 11-17-2021 Plain X-ray of shoulder Shoulder min 2 Views [facility] Work Phone: Start: 11-17-2021 X-ray of lumbar spine, two or three views Lumbar Spine 2 or 3 Views [facility] Work Phone: Start: 11-06-2021 [facility] Work Phone: Start: 09-08-2021 Bacteria identified in Blood by Culture Blood Culture [facility] Work Phone: Start: 09-08-2021 Microscopic observation [Identifier] in Unspecified specimen by Gram stain Gram Stain [facility] Work Phone: Start: 09-08-2021 Respiratory Culture Respiratory Culture [facility] Work Phone: Start: 12-12-2019 Zoster vaccine hzv live for subcutaneous use ZOSTER (SHINGLES) VACCINE (1 of 2) [facility] Start: 2014 Screening for malignant neoplasm of colon COLORECTAL CANCER SCREENING DISCUSSION [facility] Start: 2009 Lipid panel LIPID SCREENING [facility] Start: 2009 Screening for malignant neoplasm of breast MAMMOGRAM SCREENING DISCUSSION [facility] Start: 1990 Screening for malignant neoplasm of cervix CERVICAL CANCER SCREENING DISCUSSION [facility] Start: 1984 HIV screening HIV SCREENING DISCUSSION [facility] Start: 06-13-1970 COVID-19 VACCINE (#1) COVID-19 VACCINE (#1) [facility] Start: 1969 Hepatitis C screening HEPATITIS C VIRUS SCREENING [facility] Anion gap measurement [facility] Bacteria identified in Blood by Culture [facility] Bilirubin measurement, urine [facility] BUN/Creatinine ratio [facility] Calcium [Mass/volume ] in Serum or Plasma [facility] Carbon dioxide, tota l [Moles/volume] in Serum or Plasma [facility] Chloride [Moles/volu me] in Serum or Plasma [facility] Cholesterol [Mass/vo lume] in Serum or Plasma [facility] Cholesterol in HDL [Mass/volume] in Serum or Plasma [facility] Cholesterol in LDL [Mass/volume] in Serum or Plasma [facility] Comprehensive metabo lic 2000 panel - Serum or Plasma [facility] Creatinine [Moles/vo lume] in Serum or Plasma [facility] CT Chest WO contrast [facility] DXA Bone [Mass/Area] Bone density [facility] Glucose [Mass/volume ] in Serum or Plasma [facility] Hemoglobin [Presence ] in Urine [facility] INR in Blood by Coag ulation assay [facility] End: 08-18-2022 Interrogation of cardiac pacemaker PACEMAKER/ICD INTERROGATION Cardiac Services Routine One Time for 1 Occurrences starting 08/18/2022 until 08/18/[address] [facility] Work Phone: Comment on above: One Time for 1 Occurrences starting 08/04 until 08/18/2022 LAVENDER TOP TUBE LAVENDER TOP T UBE Lab STAT 09/20/2022 3:23 PM EDT [facility] Lipid 1996 panel - S kobi or Plasma [facility] LT BLUE TOP TUBE LT BLUE TOP TUB E Lab STAT 09/20/2022 3:23 PM EDT [facility] Measurement of keton es in urine using dipstick [facility] Measurement of renal function [facility] Measurement of respi ratory function [facility] Microscopic urinalysis [facility] Natriuretic peptide. B prohormone N-Terminal [Mass/volume] in Serum or Plasma [facility] Natriuretic peptide. B prohormone N-Terminal [Mass/volume] in Serum or Plasma [facility] Patient Education [facility] Work Phone: Patient referral [facility] Work Phone: pH of Urine [facility] Potassium [Moles/vol ume] in Serum or Plasma [facility] RAINBOW DRAW RAINBOW DRAW Lab STAT 09/20/2022 3:23 PM EDT [facility] Sodium [Moles/volume ] in Serum or Plasma [facility] Specific gravity of Urine [facility] End: 09-20-2022 Standard ECG [facility] Work Phone: Comment on above: One Time for 1 Occurrences starting 09/04 until 09/20/2022 T4 free measurement [facility] T4 free measurement [facility] Thyroid stimulating hormone measurement [facility] Thyroid stimulating hormone measurement [facility] Triglycerides measurement [facility] Triiodothyronine, fr ee measurement [facility] Triiodothyronine, fr ee measurement [facility] Urea nitrogen [Mass/ volume] in Serum or Plasma [facility] Urinalysis, blood, qualitative [facility] Urine culture [facility] Urine dipstick for glucose [facility] Urine dipstick for l eukocyte esterase [facility] Urine dipstick for nitrite [facility] Urine dipstick for protein [facility] Urine examination [facility] Urine microalbumin/c reatinine ratio measurement [facility] Urine microscopy: ep ithelial cells [facility] Urine Microscopy: white cells [facility] Urobilinogen [Presen ce] in Urine [facility] Work Phone: Vitamin D, 25-hydrox y measurement [facility] VLDL cholesterol measurement [facility] Walking distance [address] [facility] Immunizations Immunization Date Immunization Notes Care Provider Fa cility 11-29-2020 Covid (Moderna) Dr. Margo ni Work Phone: [facility] 11-24-2020 Covid (Moderna) Dr. Margo ni Work Phone: [facility] 11-01-2020 Covid (Moderna) Dr. Margo ni Work Phone: [facility] 10-30-2020 Covid (Moderna) Dr. Margo ni Work Phone: [facility] 03-25-2016 tetanus toxoid, redu blake diphtheria toxoid, and acellular pertussis vaccine, adsorbed Dr. Margo Tatum Work Phone: [facility] Payers Date Payer Category Payer Medicare [id number] 2024 Self-pay [id number] 2023 Unknown [id number] 2022 Medicaid [employer] [facility] MEDICAID [id number] 2022-Present [address] [place] [address] [id number] 2022 Medicare [employer] MEDICARE RX [employer] [facility] MEDICARE RX [id number] 2022-Present [address] [place] [address] [id number]. [id number] 2022 Unknown [id number] 2016 Unknown [id number] 2011 Unknown [id number] 1969 Unknown [id number] .840.1.789050.3.579.2.594 1969 Unknown [id number] 2.840.1.859118.3.579.2.594 1969 Unknown [id number] .840.1.175566.3.579.2.594 1969 Unknown [id number] 2.840.1.291545.3.579.2.594 1969 Unknown [id number] .0.1.456260.3.579.2.594 1969 Unknown [id number] .840.1.078445.3.579.2.594 Medicaid [id number] Unknown [id number] 2.840.1.890519.3.579.2.462 Unknown [id number] 2.840.1.772447.3.579.2.462 Unknown [id number] 2.840.1.226085.3.579.2.462 Unknown [id number] 2.840.1.186752.3.579.2.462 Unknown [id number] 2.16840.1.734097.3.579.2.462 Unknown [id number] 2.840.1.803380.3.579.2.462 Unknown [id number] 2.840.1.545946.3.579.2.462 Unknown [id number] 2.16.840.1.563193.3.579.2.462 Unknown [id number] 2.16.840.1.094827.3.579.2.462 Unknown [id number] 2.16.840.1.082162.3.579.2.462 Unknown [id number] 2.16.840.1.935230.3.579.2.462 Unknown [id number] 2.16.840.1.261255.3.579.2.462 Unknown [id number] 2.840.1.358024.3.579.2.462 Unknown [id number] 2.840.1.454860.3.579.2.462 Unknown [id number] 2.840.1.133118.3.579.2.462 Unknown [id number] 2.840.1.760447.3.579.2.462 Unknown [id number] 2.840.1.886928.3.579.2.462 Unknown [id number] 2.840.1.098505.3.579.2.462 Unknown [id number] 2.840.1.980841.3.579.2.462 Unknown [id number] 2.840.1.744372.3.579.2.462 Unknown [id number] 2.840.1.563606.3.579.2.462 Unknown [id number] 2.840.1.802069.3.579.2.462 Unknown [id number] 2.840.1.260162.3.579.2.462 Unknown [id number] 2.16.840.1.215208.3.579.2.462 Unknown [id number] 2.16.840.1.946074.3.579.2.462 Unknown [id number] 2.840.1.035195.3.579.2.462 Unknown [id number] 2.16.840.1.026483.3.579.2.462 Unknown [id number] 2.16.840.1.114066.3.579.2.462 Unknown [id number] 2.16.840.1.472523.3.579.2.462 Unknown [id number] 2.16.840.1.853375.3.579.2.462 Unknown [id number] 2.16.840.1.587707.3.579.2.462 Unknown [id number] 2.16.840.1.008719.3.579.2.462 Unknown [id number] 2.16.840.1.681177.3.579.2.462 Unknown [id number] 2.16.840.1.750354.3.579.2.462 Unknown [id number] 2.16.840.1.445679.3.579.2.462 Unknown [id number] 2.16.840.1.646344.3.579.2.462 Unknown [id number] 2.16.840.1.589355.3.579.2.462 Unknown [id number] 2.16.840.1.360606.3.579.2.462 Unknown [id number] 2.16.840.1.572914.3.579.2.462 Unknown [id number] 2.16.840.1.786428.3.579.2.462 Unknown [id number] 2.16.840.1.266294.3.579.2.462 Unknown [id number] 2.16.840.1.482246.3.579.2.462 Unknown [id number] 2.16.840.1.405560.3.579.2.462 Social History Date Type Detail Facility Start: 09-08-2021 End: 09-06-2023 Tobacco smoking status MOIS Unknown if ever smoked [facility] Start: 11-25-2020 None [facility] Start: 11-25-2020 Homeless [facility] Start: 11-25-2020 Non-smoker [facility] Start: 1970 Sex Assigned At Female [facility] Start: 12-10-2011 Tobacco smoking stat us NHIS Never smoked tobacco [facility] Start: 08-18-2022 End: 09-20-2022 Alcohol intake Current non-drinker of alcohol (finding) [facility] Start: 1970 Sex Assigned At Not on file [facility] Start: 08-08-2022 End: 09-20-2022 Exposure to SARS-CoV-2 (event) Not sure [facility] Start: 09-09-2024 End: 01-11-2025 Tobacco smoking status NHIS Ex-smoker (finding) [facility] Start: 09-09-2024 End: 09-27-2024 Sex Female (finding) [facility] Medical Equipment Procedure Code Equipment Code Equipment Origin al Text Equipment Identifier Dates [id number] [facility] Start: 05-19-2021 Pen Needle, Diab etic (Bd [...] rdiac .99cm 5.37x8.18cm Vigilant X4 Mr - [id number] Start: 08-18-2022 Lead Pacing 86cm 3.9-5.2fr 2.6fr Acuity X4 Quadripolar Kristina - [id number] Start: 08-18-2022 Pen Needle, Diab etic [...] /State Functional Status Date Assessment Result Facility 12-01-2024 Functional status Ambulates [facility] Work Phone: 09-11-2024 Functional status Ambulates [facility] Work Phone: 09-10-2023 Functional status Ambulates [facility] Work Phone: 08-29-2023 Functional status Ambulates [facility] Work Phone: 08-07-2022 Functional status Bathroom Privilege [facility] Work Phone: 09-14-2021 Functional status Ambulates;Bathroom Priv ilege [facility] Work Phone: 07-19-2021 Functional status Ambulates;Up a d radha;Bathroom Privilege [facility] Work Phone: 05-25-2021 Functional status Ambulates;Chair [facility] Work Phone: 05-20-2021 Functional status Up ad radha [facility] Work Phone: 05-19-2021 Functional status None [facility] Work Phone: Mental Status Date Assessment Result Facility 01-11-2025 Cognitive function Voice/Name [facility] Work Phone: 12-01-2024 Cognitive function Voice/Name [facility] Work Phone: 09-11-2024 Cognitive function Voice/Name [facility] Work Phone: 09-09-2023 Cognitive function Voice/Name [facility] Work Phone: 08-29-2023 Cognitive function Cooperative [facility] Work Phone: 05-18-2023 Cognitive function Awake [facility] Work Phone: 08-07-2022 Cognitive function Voice/Name [facility] Work Phone: 04-05-2022 Cognitive function Voice/Name [facility] Work Phone: 01-24-2022 Cognitive function Voice/Name [facility] Work Phone: 11-17-2021 Cognitive function Level Of Cons ciousness Awake;Alert;Appropriate [facility] Work Phone: 11-06-2021 Cognitive function Voice/Name [facility] Work Phone: 09-16-2021 Cognitive function Level Of Cons ciousness Awake;Alert;Appropriate;Follow s Commands [facility] Work Phone: 09-14-2021 Cognitive function Voice/Name [facility] Work Phone: 09-08-2021 Cognitive function Voice/Name [facility] Work Phone: 07-17-2021 Cognitive function Demonstrates ability to follow instructions/comprehend [facility] Work Phone: 07-17-2021 Cognitive function Level Of Cons ciousness Awake;Alert;Appropriate;Follow s Commands [facility] Work Phone: 06-07-2021 Cognitive function Voice/Name [facility] Work Phone: 06-04-2021 Cognitive function Voice/Name [facility] Work Phone: 05-25-2021 Cognitive function Voice/Name [facility] Work Phone: 05-20-2021 Cognitive function Voice/Name [facility] Work Phone: 05-19-2021 Cognitive function Memory Description Int act [facility] Work Phone: Clinical Notes 05-19-2021 to 01-25-2025 Note Date & Type Note Facility 01-25-2025 Radiology Diagnostic study note [facility] 01-11-2025 Radiology Diagnostic study note [facility] 01-11-2025 Radiology Diagnostic study note [facility] 12-28-2024 Procedure note [facility] 12-06-2024 Radiology Diagnostic study note [facility] 12-06-2024 Discharge summary Note Date/Time December 06, 2024 8:49pm [facility] Medical Records Department [address] [place] [address] Emergency Department Summary 12/06/24 MR#: [id number] Acct: [id number] Name: PITO HENDRIX Rep #:[id number] : 1970 53 From: Rell Loera MD PCP: Dr. Margo Tatum, DO Status:REG ER Location: ED HPI History of Present Illness Chief Complaint: Shortness of Breath Informant: patient Narrative Narrative: 53-year-old female states she was just admitted for dyspnea/CHF, and for the past week since she was discharged she feels like she has been gradually gettingworse same symptoms but worse now. No exertional chest discomfort. She is dyspneic with light exertion, with lying flat, and waking up in the middle of the night dyspneic. She denies leg edema. She denies any syncope or palpitations. No fevers or chills but she is coughing, it is nonproductive. She has been compliant with the medication she has been prescribed. She states she also has a history of COPD, she is not on home oxygen. She has been doing twice daily nebulizer treatments at home for this, she states it helps some. 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) Diabetes Atrial fibrillation Coronary artery disease Hypertension Paroxysmal atrial fibrillation Hyperthyroidism Vomiting Hirsutism Chronic nausea Non-ST elevation (NSTEMI) myocardial infarction Difficult intubation Syncope Thyroid nodule Kidney stones Former smoker COPD (chronic obstructive pulmonary disease) Irregular heart beat Myocardial infarct Seizures COVID-19 virus infection Cardiomyopathy, ischemic Atherosclerotic heart disease of [place] coronary artery without angina pectoris HFrEF (heart failure with reduced ejection fraction) Obesity Left bundle branch block (LBBB) Non-ischemic cardiomyopathy History of non-ST elevation myocardial infarction (NSTEMI) (09/08/21) Hyperglycemia due to type 2 diabetes mellitus Chronic low back pain Type 2 diabetes mellitus Hyperlipidemia Benign hypertension Home Medications ?Medication ?Instructions ?Recorded ?Last Taken ?Type BD Ultra-Fine [place] Pen Needle 32 #100 ea 07/29/22 Unkn own Rx gauge x (pen needle, diabetic) diphenhydramine HCl 25 mg tablet 25 mg PO Q4H PRN Juaquin rgy Symptoms 08/06/22 10/14/24 History hydrocodone-acetaminophen 5-325mg 1 tab PO BID PRN blair n 08/06/22 10/14/24 History 5mg-325mg naloxegol 25 mg tablet (Movantik) 25 mg PO QAM PRN blair n 08/06/22 Unknown History omeprazole magnesium 20 mg 20 mg PO DAILY reflux 08/0610/15/24 History tablet,delayed release (Prilosec OTC) promethazine 25 mg tablet 25 mg PO TID PRN Nausea And 08/06/22 Unknown History Vomiting tizanidine 4 mg tablet 4 mg PO QHS muscle spasms 10/14/24 History cholecalciferol (vitamin D3) 50 1,000 unit PO DAILY vi tamin 03/08/23 01/19/24 History mcg (2,000 unit) capsule clopidogrel 75 mg tablet (Plavix) 75 mg PO DAILY anti platelet #90 05/16/23 10/15/24 Rx tabs atorvastatin 80 mg tablet See Rx Instructions .Route 0 06/09/23 10/14/24 Rx .COMPLEX cholesterol #360 TABLETS isosorbide mononitrate 30 mg See Rx Instructions .Rout e 06/09/23 10/15/24 Rx tablet,extended release 24 hr .COMPLEX heart #360 TABL ETS blood-glucose,claim technician,cont #1 ea 10/10/23 Unknown Rx (Dexcom G7 Air Hammer Stripper) apixaban 5 mg tablet (Eliquis) See Rx Instructions .Ro stebbins 12/13/23 10/15/24 Rx .COMPLEX blood thinner #180 tabs melatonin 10 mg capsule 10 mg PO HS PRN insomnia 02/27 Unknown History sacubitril 97 mg-valsartan 103 mg 1 tab PO BID heart # 180 tabs 12/13/23 10/15/24 Rx tablet (Entresto) carvedilol 25 mg tablet 25 mg PO BID blood pressure #180 12/29/23 10/15/24 Rx tabs spironolactone 50 mg tablet 50 mg PO DAILY #90 TABLETS 03/20/24 10/15/24 Rx methimazole 10 mg tablet 10 mg PO DAILY thyroid #90 t abs 07/10/24 10/15/24 Rx insulin glargine-yfgn 100 unit/mL 50 unit (0.5 mL) sub cut DAILY #0 mL 09/11/24 10/15/24 Rx (3 mL) subcutaneous pen Dexcom G7 Sensor (blood-glucose #3 ea 09/17/24 Unknown Rx sensor) insulin lispro 100 unit/mL 36 unit subcut TIDCM 10/15/24 History subcutaneous pen (Humalog KwikPen (U-100) Insulin) dulaglutide 4.5 mg/0.5 mL 4.5 mg (0.5 mL) subcut QWEEK #2 mL 11/07/24 Unknown Rx subcutaneous pen injector (Trulicity) albuterol sulfate 90 mcg/actuation 2 puff inhalation Q 6H PRN 12/01/24 Unknown Rx aerosol inhaler (Ventolin HFA) shortness of breath or wheezing #6.7 grams budesonide-formoterol HFA 160 2 puff inhalation BID #1 0.2 grams 12/01/24 Unknown Rx mcg-4.5 mcg/actuation aerosol inhaler (Symbicort) furosemide 20 mg tablet (Lasix) 60 mg (3 x 20 mg) PO D AILY #90 tabs 12/01/24 Unknown Rx prednisone 20 mg tablet 20 mg PO BID #14 tabs Unknown Rx Allergy/AdvReac Type Severity Reaction Status Date / Time amoxicillin trihydrate (From AdvReac Vomiting Verified 12/06/24 17:14 Augmentin) potassium clavulanate (From AdvReac Vomiting Verified 12/06/24 17:14 Augmentin) Family History Father Myocardial infarction Cancer [...] Yes ROS ROS ED Constitutional Constitutional ED: Reports fatigue; Denies chills or fever(s) Eyes Eyes: Denies change in vision or diplopia ENT ENT ED: Denies rhinorrhea or sore throat Cardiovascular Cardiovascular: Reports orthopnea and paroxysmal nocturnal dyspnea; Denies chestpain, leg edema or palpitations Respiratory/Chest Respiratory/Chest: Reports cough, dyspnea, dyspnea on exertion, orthopnea and paroxysmal nocturnal dyspnea; Denies sputum Gastrointestinal Gastrointestinal: Denies abdominal pain, diarrhea, nausea or vomiting Genitourinary Genitourinary ED: Denies dysuria or hematuria Musculoskeletal Musculoskeletal: Denies back pain or neck pain Integumentary Denies abscess or rash Neurologic Neurologic: Denies headache(s), paresthesias or weakness Psychiatric Psychiatric: Denies suicidal thoughts EXAM Physical Exam Const Vital Signs: 12/06/24 17:14 12/06/24 17:49 12/06/24 18:31 Temperature 97.9 F Temperature Source Oral Pulse Rate 88 Respiratory Rate 26 H Respiratory Effort Short of Breath Respiratory Pattern Blood Pressure 165/78 H Blood Pressure Mean 107 Pulse Ox 99 Oxygen Delivery Method Room Air Room Air 12/06/24 19:12 12/06/24 19:38 Temperature Temperature Source Pulse Rate 120 H 87 Respiratory Rate 22 H 16 Respiratory Effort Respiratory Pattern Normal Blood Pressure 118/104 H Blood Pressure Mean 108 Pulse Ox Oxygen Delivery Method Positive well nourished and well developed General Appearance ED: well developed and NAD HEENT Reports moist mucous membranes normocephalic and atraumatic Eyes PERRL and EOMs intact bilaterally Neck full ROM and supple Resp clear to auscultation bilaterally Resp Narrative: Diminished throughout but sounds clear. Tachypneic. Not in distress. Cardio regular rate, regular rhythm and no [...] and alert Motor Exam: strength 5/5 throughout Psych Mood & Affect: anxious Skin no rashes or lesions noted and no wounds MDM MDM MDM Narrative Medical decision making narrative: While working the patient up she was treated with a duo nebulizer treatment and on reevaluation she is doing much better. Chest x-ray 2 views of my interpretation shows no pulmonary edema or pneumonia. Her BNP is in the normal range, less than it was when she was admitted for this 1 week ago for CHF. She is already anticoagulated so I do not think we need to test her for an acute PE. Her vital signs are normal, with a pulse ox of 99% on room air she is not hypoxic or in respiratory distress and feels much better. She is already on prednisone 20 mg twice daily for the last week and is supposed to follow-up withpulmonary less than 1 week from now, as well as cardiology. I am going to give her a single dose of Solu-Medrol but otherwise have her keep her steroids the same, I do not think she needs an antibiotic right now. I advised that she keepthe 40 mg of every morning furosemide the same unless she finds herself gaining weight and then she can take an additional 1 early afternoon if she needs to. So far she been weighing herself daily and she has not had any significant amount of weight gain to suggest water retention acutely. They are comfortable with this plan. Lab Data Attestation: I reviewed the patient's lab results. Labs: Laboratory Results - last 24 hr 12/06/24 17:30 WBC 10.2 RBC 4.36 Hgb 13.3 Hct 40.8 MCV 93.6 MCH 30.5 MCHC 32.6 RDW Std Deviation 48.6 H RDW Coeff of Tomi 14.1 Plt Count 234 MPV 10.9 Immature Gran % (Auto) 0.700 Neut % (Auto) 70.4 H Lymph % (Auto) 22.5 Cooper % (Auto) 5.4 Eos % (Auto) 0.8 Baso % (Auto) 0.2 Absolute Neuts (auto) 7.2 Absolute Lymphs (auto) 2.30 Nucleated RBC % 0 Sodium 137 Potassium 3.9 Chloride 100 Carbon Dioxide 25.1 Anion Gap 12 BUN 32 H Creatinine 0.84 Estim Creat Clear Calc 87.34 Est GFR (MDRD) Non-Af 83 BUN/Creatinine Ratio 38.3 H Glucose 224 H Calcium 8.8 Troponin T High Sens 7 NT pro BNP II 507 Radiography Diagnostic Testing: Clinical Impression(s) from Imaging Studies Chest X-Ray 12/06/24 18:30 IMPRESSION: Stable mild cardiomegaly. Reading Location: [facility] Rhythm Strip Rhythm Strip: Paced Rate: 83 Ectopy: PVC(s) EKG Initial EKG: Attestation: I personally reviewed and interpreted this EKG as follows: Interpretation: No Acute Injury Pattern and Paced Discharge Plan Triage Chief Complaint: Shortness of Breath ED Provider: Rell Loera Dx/Rx/DC Orders Clinical Impression: Acute exacerbation of chronic obstructive pulmonary disease, HFrEF (heart failure with reduced ejection fraction), Acute cough Instructions: ED COPD Flare Prescriptions: Continued melatonin 10 mg capsule 10 mg PO HS PRN (Reason: insomnia) Entresto 97-103 mg tablet 1 tab PO BID Qty: 180 3RF Eliquis 5 mg tablet See Rx Instructions .ROUTE .COMPLEX Qty: 180 3RF Dose Instruction: take 1 tablet by mouth twice a day Patient Comments: since 08/25 Rx Instructions: take 1 tablet by mouth twice a day Trulicity 4.5 mg/0.5 mL pen injector 4.5 mg subcut QWEEK Qty: 2 3RF Patient Comments: PT TAKES ON THURSDAYS tizanidine 4 mg tablet 4 mg PO QHS diphenhydramine HCl 25 mg Tablet 25 mg PO Q4H PRN (Reason: Allergy Symptoms) promethazine 25 mg tablet 25 mg PO TID PRN (Reason: Nausea And Vomiting) hydrocodone-acetaminophen 5-325 mg tablet 1 tab PO BID PRN (Reason: pain) omeprazole magnesium [Prilosec OTC] 20 mg tablet,delayed release (DR/EC) 20 mg PO DAILY Movantik 25 mg tablet 25 mg PO QAM PRN (Reason: pain) Rx Instructions: must be taken on empty stomach; no food 1 hr after or 2-3 hrs before dose insulin glargine-yfgn 100 unit/mL (3 mL) Insulin Pen 50 unit subcut DAILY Qty: 0 0RF insulin lispro [Humalog KwikPen Insulin] 100 unit/mL Insulin Pen 36 unit subcut TIDCM furosemide [Lasix] 20 mg tablet 60 mg PO DAILY Qty: 90 0RF prednisone 20 mg tablet 20 mg PO BID Qty: 14 0RF albuterol sulfate [Ventolin HFA] 90 mcg/actuation HFA aerosol inhaler 2 puff inhalation Q6H PRN (Reason: shortness of breath or wheezing) Qty: 6.7 0RF budesonide-formoterol [Symbicort] 160-4.5 mcg/actuation HFA aerosol inhaler 2 puff inhalation BID Qty: 10.2 0RF Rx Instructions: Gargle with water and spit out water after use (DME) pen needle, diabetic [BD Ultra-Fine [place] Pen Needle] 32 gauge x 5/32 needle See Rx Instructions .Route Qty: 100 5RF Rx Instructions: 4x/day cholecalciferol (vitamin D3) 50 mcg (2,000 unit) capsule 1,000 unit PO DAILY Patient Comments: PT TAKES WHEN SHE REMEMBERS clopidogrel [Plavix] 75 mg tablet 75 mg [...] by mouth once daily (DME) Dexcom G7 Air Hammer Stripper Misc See Rx Instructions .Route Qty: 1 0RF Rx Instructions: As directed carvedilol 25 mg tablet 25 mg PO BID Qty: 180 3RF Rx Instructions: must administer with a meal/food spironolactone 50 mg tablet 50 mg PO DAILY Qty: 90 3RF methimazole 10 mg tablet 10 mg PO DAILY Qty: 90 1RF (DME) Dexcom G7 Sensor Device See Rx Instructions .Route Qty: 3 5RF Rx Instructions: 1 sensor q 14 days Primary Care Provider: Margo Tatum Referrals: Margo Tatum DO [Primary Care Provider] - Keep Macy appointment (Also keep scheduled appointments with cardiology, pulmonary) Print Language: Chinese Disposition Disposition: Home, Self Care What to do if you have Problems For any increased pain, shortness of breath, bleeding, nausea or vomiting, chestpain, or any unexpected problems, contact your Primary Care Provider. Call [facility] ([phone]) or report to the closest Emergency Room. Call 911 if necessary. 12/06/242048 <Electronically signed by Rell Loera MD> Cosigner Signature (if applicable): CC: Dr. Margo Tatum DO ~ Signed [facility] Work Phone: [phone]) 842-250706-28-2025 Discharge summary Author Aidan Staples [facility] Note Date/Time December 01, 2024 12:3 3pm [facility] Medical Records Department [address] [place] [address] Instructions for Home/Discharge Instructions 12/01/24 1215 MR#: [id number] Acct: [id number] Name: PITO HENDRIX Rep #:[id number] : 1970 53 From: Aidan Staples DO PCP: Dr. Margo Tatum DO Status:ADM [facility] Discharge Instructions Diet Discharge Diet: 1800 Calorie Control Diet DC O2, CPAP, BIPAP needs Home O2 Discharge instructions: No Dressing / Incision Discharge Activity: Return to Normal Activity Weight Bearing Status: Full weight bearing Follow Up Care Test Results: Test results from this visit will be discussed in further detail at your follow- up appointment, if applicable. Discharge Plan Admission Admit Date/Time: 11/30/24 19:04 Primary Reason for Your Visit: Exacerbation of COPD Attending Provider: Aidan Staples Primary Care Provider: Margo Tatum Consulting Providers: Suma Mathew Discharge Orders/Prescriptions Prescriptions: New furosemide [Lasix] 20 mg tablet 60 mg PO DAILY Qty: 90 0RF prednisone 20 mg tablet 20 mg PO BID Qty: 14 0RF albuterol sulfate [Ventolin HFA] 90 mcg/actuation HFA aerosol inhaler 2 puff inhalation Q6H PRN (Reason: shortness of breath or wheezing) Qty: 6.7 0RF budesonide-formoterol [Symbicort] 160-4.5 mcg/actuation HFA aerosol inhaler 2 puff inhalation BID Qty: 10.2 0RF Rx Instructions: Gargle with water and spit out water after use Continued Eliquis 5 mg tablet See Rx Instructions .ROUTE .COMPLEX Qty: 180 3RF Dose Instruction: take 1 tablet by mouth twice a day Patient Comments: since 3/22 Rx Instructions: take 1 tablet by mouth twice a day Trulicity 4.5 mg/0.5 mL pen injector 4.5 mg subcut QWEEK Qty: 2 3RF Patient Comments: PT TAKES ON THURSDAYS diphenhydramine HCl 25 mg Tablet 25 mg PO Q4H PRN (Reason: Allergy Symptoms) cholecalciferol (vitamin D3) 50 mcg (2,000 unit) capsule 1,000 unit PO DAILY Patient Comments: PT TAKES WHEN SHE REMEMBERS clopidogrel [Plavix] 75 mg tablet 75 mg PO DAILY Qty: 90 3RF atorvastatin 80 mg tablet See Rx Instructions .ROUTE .COMPLEX Qty: 360 0RF Dose Instruction: take 1 tablet by mouth at bedtime Rx Instructions: take 1 tablet by mouth at bedtime carvedilol 25 mg tablet 25 mg PO BID Qty: 180 3RF Rx Instructions: must administer with a meal/food Discontinued furosemide 40 mg Tablet 40 mg PO DAILY Qty: 30 1RF No Action melatonin 10 mg capsule 10 mg PO HS PRN (Reason: insomnia) Entresto 97-103 mg tablet 1 tab PO BID Qty: 180 3RF tizanidine 4 mg tablet 4 mg PO QHS promethazine 25 mg tablet 25 mg PO TID PRN (Reason: Nausea And Vomiting) hydrocodone-acetaminophen 5-325 mg tablet 1 tab PO BID PRN (Reason: pain) omeprazole magnesium [Prilosec OTC] 20 mg tablet,delayed release (DR/EC) 20 mg PO DAILY Movantik 25 mg tablet 25 mg PO QAM PRN (Reason: pain) Rx Instructions: must be taken on empty stomach; no food 1 hr after or 2-3 hrs before dose insulin glargine-yfgn 100 unit/mL (3 mL) Insulin Pen 50 unit subcut DAILY Qty: 0 0RF insulin lispro [Humalog KwikPen Insulin] 100 unit/mL Insulin Pen 36 unit subcut TIDCM (DME) pen needle, diabetic [BD Ultra-Fine [place] Pen Needle] 32 gauge x needle See Rx Instructions .Route Qty: 100 5RF Rx Instructions: 4x/day isosorbide mononitrate 30 mg tablet extended release 24 hr See Rx Instructions .ROUTE .COMPLEX Qty: 360 0RF Dose Instruction: take 1 tablet by mouth once daily Rx Instructions: take 1 tablet by mouth once daily (DME) Dexcom G7 Air Hammer Stripper Misc See Rx Instructions .Route Qty: 1 0RF Rx Instructions: As directed spironolactone 50 mg tablet 50 mg PO DAILY Qty: 90 3RF methimazole 10 mg tablet 10 mg PO DAILY Qty: 90 1RF (DME) Dexcom G7 Sensor Device See Rx Instructions .Route Qty: 3 5RF Rx Instructions: 1 sensor q 14 days Referrals / Follow Up: Margo Tatum DO [Primary Care Provider] - Within 2 Weeks Disposition Disposition (needs filled in before D/C Order can be placed): Home, Self Care 12/01/24 1233<Electronically signed by Aidan Staples DO>Aidan Staples DO CC: Dr. Margo Tatum DO; Dr. Suma Mathew MD ~ Signed [facility] Work Phone: [phone]) 861-611906-28-2025 Hospital Discharge instructionsAdditional Instructions Date of Discharge: 12/01/24[facility] Work Phone: [phone]) 885-191306-28-2025 [facility]06-28-2025 Discharge summary Author [facility] Note Date/Time November 30, 2024 10:4 2pm [facility] Medical Records Department [address] [place] [address] Emergency Department Summary 11/30/24 MR#: [id number] Acct: [id number] Name: PITO HENDRIX Rep #:[id number] : 1970 53 From: Allen Meraz DO PCP: Dr. Margo Tatum DO Status:ADM [facility] Location: [address] History of Present Illness Chief Complaint: Shortness of Breath Detail of Chief Complaint: Shortness of breath Informant: patient Narrative Narrative: Patient presents with shortness of breath that started around 1:30 AM. Patient states she woke up feeling short of breath. Describes some tightness across herchest. She is felt this way in the past with COPD exacerbations. She also has history of coronary artery disease. History of prior stents. She has got a pacer defibrillator. History of CHF. She denies fever however she has had somechills and a dry cough. 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) Diabetes Atrial fibrillation Coronary artery disease Hypertension Paroxysmal atrial fibrillation Hyperthyroidism Vomiting Hirsutism Chronic nausea Non-ST elevation (NSTEMI) myocardial infarction Difficult intubation Syncope Thyroid nodule Kidney stones Former smoker COPD (chronic obstructive pulmonary disease) Irregular heart beat Myocardial infarct Seizures COVID-19 virus infection Cardiomyopathy, ischemic Atherosclerotic heart disease of [place] coronary artery without angina pectoris HFrEF (heart failure with reduced ejection fraction) Obesity Left bundle branch block (LBBB) Non-ischemic cardiomyopathy History of non-ST elevation myocardial infarction (NSTEMI) (09/08/21) Hyperglycemia due to type 2 diabetes mellitus Chronic low back pain Type 2 diabetes mellitus Hyperlipidemia Benign hypertension Home Medications ?Medication ?Instructions ?Recorded ?Last Taken ?Type BD Ultra-Fine [place] Pen Needle 32 #100 ea 07/29/22 Unkn own Rx gauge x 5/32 (pen needle, diabetic) diphenhydramine HCl 25 mg tablet 25 mg PO Q4H PRN Juaquin rgy Symptoms 08/06/22 10/14/24 History hydrocodone-acetaminophen 5-325mg 1 tab PO Q8H PRN blair n 08/06/22 10/14/24 History 5mg-325mg naloxegol 25 mg tablet (Movantik) 25 mg PO QAM PRN blair n 08/06/22 Unknown History omeprazole magnesium 20 mg 20 mg PO DAILY reflux 08/0610/15/24 History tablet,delayed release (Prilosec OTC) promethazine 25 mg tablet 25 mg PO TID PRN Nausea And 08/06/22 Unknown History Vomiting tizanidine 4 mg tablet 4 mg PO QHS muscle spasms 10/14/24 History cholecalciferol (vitamin D3) 50 1,000 unit PO DAILY vi tamin 03/08/23 01/19/24 History mcg (2,000 unit) capsule clopidogrel 75 mg tablet (Plavix) 75 mg PO DAILY anti platelet #90 05/16/23 10/15/24 Rx tabs atorvastatin 80 mg tablet See Rx Instructions .Route 0 06/09/23 10/14/24 Rx .COMPLEX cholesterol #360 TABLETS isosorbide mononitrate 30 mg See Rx Instructions .Rout e 06/09/23 10/15/24 Rx tablet,extended release 24 hr .COMPLEX heart #360 TABL ETS blood-glucose,claim technician,cont #1 ea 10/10/23 Unknown Rx (Dexcom G7 Air Hammer Stripper) apixaban 5 mg tablet (Eliquis) See Rx Instructions .Ro stebbins 12/13/23 10/15/24 Rx .COMPLEX blood thinner #180 tabs melatonin 10 mg capsule 10 mg PO HS PRN insomnia 02/27 Unknown History sacubitril 97 mg-valsartan 103 mg 1 tab PO BID heart # 180 tabs 12/13/23 10/15/24 Rx tablet (Entresto) carvedilol 25 mg tablet 25 mg PO BID blood pressure #180 12/29/23 10/15/24 Rx tabs spironolactone 50 mg tablet 50 mg PO DAILY #90 TABLETS 03/20/24 10/15/24 Rx methimazole 10 mg tablet 10 mg PO DAILY thyroid #90 t abs 07/10/24 10/15/24 Rx furosemide 40 mg tablet 40 mg PO DAILY #30 tabs 04/01/2810/15/24 Rx insulin glargine-yfgn 100 unit/mL 50 unit (0.5 mL) sub cut DAILY #0 mL 09/11/24 10/15/24 Rx (3 mL) subcutaneous pen Dexcom G7 Sensor (blood-glucose #3 ea 09/17/24 Unknown Rx sensor) insulin lispro 100 unit/mL 30 unit subcut TIDCM 10/15/24 History subcutaneous pen (Humalog KwikPen (U-100) Insulin) dulaglutide 4.5 mg/0.5 mL 4.5 mg (0.5 mL) subcut QWEEK #2 mL 11/07/24 Unknown Rx subcutaneous pen injector (Trulicity) Allergy/AdvReac Type Severity Reaction Status Date / Time amoxicillin trihydrate (From AdvReac Vomiting Verified 11/30/24 15:50 Augmentin) potassium clavulanate (From AdvReac Vomiting Verified 11/30/24 15:50 Augmentin) Family History Father Myocardial infarction Cancer [...] not use caffeine: Yes ROS ROS ED Review of Systems ROS Unobtainable: other Constitutional Constitutional ED: Reports lethargy; Denies chills, fever(s), sweats or weight loss Eyes Eyes: Denies blurry vision, change in vision or diplopia ENT ENT ED: Denies rhinorrhea or sore throat Cardiovascular Cardiovascular: Denies chest pain, orthopnea or racing heartbeat Respiratory/Chest Respiratory/Chest: Reports cough, dyspnea and dyspnea on exertion; Denies orthopnea or sputum Gastrointestinal Gastrointestinal: Denies abdominal pain, diarrhea, nausea or vomiting Genitourinary Genitourinary ED: Denies dysuria, hematuria or urinary frequency Musculoskeletal Musculoskeletal: Denies arthralgias, back pain, myalgias or neck pain Integumentary Denies abscess, Abrasions or rash Neurologic Neurologic: Denies headache(s) or weakness Psychiatric Psychiatric: Denies anxiety, depression or suicidal thoughts Endocrine Endocrinology: Denies polydipsia, polyphagia or polyuria Hematologic/Lymphatic Hematologic/Lymphatic: Denies easy bleeding, easy bruising or lymphadenopathy Allergic/Immunologic Allergic/Immunologic ED: Denies mouth swelling, tongue swelling or urticaria EXAM Physical Exam Const Vital Signs: 11/30/24 15:47 11/30/24 15:50 11/30/24 16:13 Temperature 98.1 F Temperature Source Oral Pulse Rate 88 97 Respiratory Rate 25 H 26 H Respiratory Effort Short of Breath Respiratory Pattern Tachypnea Tachypnea Blood Pressure 154/99 H Blood Pressure Mean 117 Pulse Ox 98 Oxygen Delivery Method Room Air Room Air 11/30/24 16:15 11/30/24 16:45 11/30/24 17:00 Temperature Temperature Source Pulse Rate 95 88 Respiratory Rate 25 H 23 H Respiratory Effort Respiratory Pattern Blood Pressure 127/64 H 127/64 H Blood Pressure Mean 85 85 Pulse Ox 100 100 Oxygen Delivery Method Room Air Room Air 11/30/24 18:00 Temperature Temperature Source Pulse Rate 86 Respiratory Rate 23 H Respiratory Effort Respiratory Pattern Blood Pressure 126/96 H Blood Pressure Mean 106 Pulse Ox 100 Oxygen Delivery Method Positive well nourished and well developed General Appearance ED: well developed and NAD HEENT Reports TM's clear and moist mucous membranes normocephalic and atraumatic; Negative for trauma or tenderness Tympanic Membrane ED: Yes TM's clear Eyes PERRL and EOMs intact bilaterally General Eye ED: Negative for pale conjunctiva or scleral icterus Neck no lymphadenopathy, supple and no JVD General: Negative for tenderness Chest Wall inspection of chest normal and palpation of chest normal Chest: Negative for tenderness Resp No normal respiratory effort and No clear to auscultation bilaterally Effort and Inspection: Negative for respiratory distress or pain with movement Auscultation: wheezes; Negative for rhonchi or diminished lung sounds Cardio regular rate, regular rhythm, S1 normal heart sound, S2 normal heart sound and no murmurs Peripheral Pulses: pulses 2+ throughout GI normal to inspection, nondistended, normoactive bowel sounds, soft to palpation,non-tender, non-distended and no masses Back/Spine no CVA tenderness and no thoracic nor lumbar tenderness Extremity normal to inspection General Extremety ED: Negative for edema General Extremity: Negative for edema Neuro oriented x3, CN's II-XII intact bilaterally, no sensory deficits noted and gait normal Sensorium / Orientation: awake, alert, oriented to person, oriented to place andoriented to time Motor Exam: strength 5/5 throughout and strength abnormal Psych mental status grossly normal Skin no rashes or lesions noted and no wounds MDM MDM MDM Narrative Medical decision making narrative: Patient presents to the emergency department with dyspnea with history of COPD as well as CHF. States symptoms worse when lying flat. Not hypoxic on arrival. In the differential be CHF versus COPD versus infectious etiology versus less likely PE as she is anticoagulated. IV line established. EKG obtained arrival showed a sinus paced rhythm with rate of 95 bpm with occasional PVCs. CBC with differential shows a white count of 7.3 with hemoglobin 12.2 and platelet count of 184. Chemistries unremarkable. Troponin normal at 7. BNP was 1366. Chest x-ray unremarkable. While in department she received DuoNeb aerosol as well as albuterol aerosols. She was given Solu-Medrol. Because of the elevated BT CLERICAL ADMINISTRATIVE ASSISTANT she was given 80 mg Lasix IV. Discussed results with patient. She still feeling dyspneic especially when lying flat. Slight diaphoretic. She is not comfortable going home and I discussed with hospitalist will evaluate patient for admission for observation and diuresis. Patient admitted in stable condition Lab Data Attestation: I reviewed the patient's lab results. Labs: Laboratory Results - last 24 hr 11/30/24 16:05 WBC 7.3 RBC 3.97 L Hgb 12.2 Hct 37.0 MCV 93.2 MCH 30.7 MCHC 33.0 RDW Std Deviation 47.7 H RDW Coeff of Tomi 14.0 Plt Count 184 MPV 10.4 Immature Gran % (Auto) 0.300 Neut % (Auto) 61.9 Lymph % (Auto) 30.4 Cooper % (Auto) 5.2 Eos % (Auto) 1.9 Baso % (Auto) 0.3 Absolute Neuts (auto) 4.5 Absolute Lymphs (auto) 2.22 Nucleated RBC % 0 D-Dimer Quant (PE/DVT) 0.49 Sodium 137 Potassium 4.4 Chloride 105 Carbon Dioxide 20.1 L Anion Gap 11 BUN 23 H Creatinine 0.85 Estim Creat Clear Calc 87.65 Est GFR (MDRD) Non-Af 81 BUN/Creatinine Ratio 26.3 H Glucose 300 H Calcium 8.4 Troponin T High Sens 7 D NT pro BNP II 1366 H Radiography Diagnostic Testing: Clinical Impression(s) from Imaging Studies Chest X-Ray 11/30/24 16:55 IMPRESSION: Stable mild cardiomegaly. Reading Location: [id number] Discharge Plan Triage Chief Complaint: Shortness of Breath ED Provider: Allen Meraz Dx/Rx/DC Orders Clinical Impression: Dyspnea, CHF (congestive heart failure), COPD exacerbation Prescriptions: No Action melatonin 10 mg capsule 10 mg PO HS PRN (Reason: insomnia) sacubitril-valsartan [Entresto] 97-103 mg tablet 1 tab PO BID Qty: 180 3RF Eliquis 5 mg tablet See Rx Instructions .ROUTE .COMPLEX Qty: 180 3RF Dose Instruction: take 1 tablet by mouth twice a day Patient Comments: since 08/25 Rx Instructions: take 1 tablet by mouth twice a day Trulicity 4.5 mg/0.5 mL pen injector 4.5 mg subcut QWEEK Qty: 2 3RF tizanidine 4 mg tablet 4 mg PO QHS diphenhydramine HCl 25 mg Tablet 25 mg PO Q4H PRN (Reason: Allergy Symptoms) promethazine 25 mg tablet 25 mg PO TID PRN (Reason: Nausea And Vomiting) hydrocodone-acetaminophen 5-325 mg tablet 1 tab PO Q8H PRN (Reason: pain) omeprazole magnesium [Prilosec OTC] 20 mg tablet,delayed release (DR/EC) 20 mg PO DAILY Movantik 25 mg tablet 25 mg PO QAM PRN (Reason: pain) Rx Instructions: must be taken on empty stomach; no food 1 hr after or 2-3 hrs before dose furosemide 40 mg Tablet 40 mg PO DAILY Qty: 30 1RF Patient Comments: PT IS TAKING TWICE A DAY PER DR insulin glargine-yfgn 100 unit/mL (3 mL) Insulin Pen 50 unit subcut DAILY Qty: 0 0RF insulin lispro [Humalog KwikPen Insulin] 100 unit/mL Insulin Pen 30 unit subcut TIDCM (DME) pen needle, diabetic [BD Ultra-Fine Trin[place] Pen Needle] 32 gauge x 5/32 needle See Rx Instructions .Route Qty: 100 5RF Rx Instructions: 4x/day cholecalciferol (vitamin D3) 50 mcg (2,000 unit) capsule 1,000 unit PO DAILY Patient Comments: PT TAKES WHEN SHE REMEMBERS clopidogrel [Plavix] 75 mg tablet 75 mg [...] by mouth once daily (DME) Dexcom G7 Air Hammer Stripper Misc See Rx Instructions .Route Qty: 1 0RF Rx Instructions: As directed carvedilol 25 mg tablet 25 mg PO BID Qty: 180 3RF Rx Instructions: must administer with a meal/food spironolactone 50 mg tablet 50 mg PO DAILY Qty: 90 3RF methimazole 10 mg tablet 10 mg PO DAILY Qty: 90 1RF (DME) Dexcom G7 Sensor Device See Rx Instructions .Route Qty: 3 5RF Rx Instructions: 1 sensor q 14 days Primary Care Provider: Margo Tatum Referrals: Margo Tatum DO [Primary Care Provider] - Print Language: Chinese Disposition Disposition: [facility] Care [facility] What to do if you have Problems For any increased pain, shortness of breath, bleeding, nausea or vomiting, chestpain, or any unexpected problems, contact your Primary Care Provider. Call [facility] ([phone]) or report to the closest Emergency Room. Call 911 if necessary. 11/30/242241 <Electronically signed by Allen Meraz DO> Cosigner Signature (if applicable): CC: Dr. Margo Tatum DO ~ Signed [facility] Work Phone: [phone]) 690-585506-27-2025 History and physical note Author Suma Mathew [facility] Note Date/Time November 30, 2024 7:38 pm [facility] Medical Records Department [address] [place] [address] H&P Exam - Hospitalist 11/30/24 1904 MR#: [id number] Acct: [id number] Name: PITO HENDRIX KAYLIN Rep #:[id number] : 1970 53 From: Suma Mathew MD PCP: Dr. Margo Tatum DO Status:ADM HERMINIA Location: [place] [address] HPI - General General Date of Admission: 11/30/24 Date of Service: 11/30/24 Chief Complaint: Worsening shortness of breath HPI Narrative PITO HENDRIX, is a 53-year-old female history of pacemaker/AICD, coronary artery disease with stenting, asthma/COPD, A-fib, heart failure, diabetes, hyperthyroidism presented [facility] ED 11/30/2024 for shortness of breath that started at 1:30 AM. She woke up feeling short of breath and feltsome tightness across her chest and notes she is felt similar when she has had COPD exacerbations or difficulties with her breathing before. No fever but has had some chills and dry cough. In the ED patient afebrile, heart rate 88 and blood pressure 154/99, respiratory rate 25 and pulse ox 98% on room air. CBC with normal white blood cell count and BMP with a BUN of 23 and a creatinine of 0.85, glucose 300. Initial troponin of 7. proBNP 1366. D-dimer 0.49. Chest x-ray with stable cardiomegaly and COVID/flu/RSV negative. Patient given nebs, Solu-Medrol, and IV Lasix for concern for COPD exacerbation and CHF exacerbationoverlap and hospitalist contacted for admission. Patient evaluated at bedside, sitting up on side of bed and reports that she usually sleeps on 3 pillows and has sleep apnea but has not been able to tolerate CPAP but overnight despite sleeping on 3 pillows she woke up short of breath at 1:30 AM. She has had a little bit of a dry cough for a couple of days that is worsened today without any significant sputum production. Denies any swelling in her legs, no fevers that she noted, when she is having a difficult time with her breathing she does note some tightness across her chest, feels a little bit better since receiving DuoNebs and Lasix but still reports when she lays back she gets short of breath. She reports compliance with home medications including her inhalers and her Eliquis. 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) Diabetes Atrial fibrillation Coronary artery disease Hypertension Paroxysmal atrial fibrillation Hyperthyroidism Vomiting Hirsutism Chronic nausea Non-ST elevation (NSTEMI) myocardial infarction Difficult intubation Syncope Thyroid nodule Kidney stones Former smoker COPD (chronic obstructive pulmonary disease) Irregular heart beat Myocardial infarct Seizures COVID-19 virus infection Cardiomyopathy, ischemic Atherosclerotic heart disease of [place] coronary artery without angina pectoris HFrEF (heart failure with reduced ejection fraction) Obesity Left bundle branch block (LBBB) Non-ischemic cardiomyopathy History of non-ST elevation myocardial infarction (NSTEMI) (09/08/21) Hyperglycemia due to type 2 diabetes mellitus Chronic low back pain Type 2 diabetes mellitus Hyperlipidemia Benign hypertension Home Medications ?Medication ?Instructions ?Recorded ?Last Taken ?Type BD Ultra-Fine [place] Pen Needle 32 #100 ea 07/29/22 Unkn own Rx gauge x /32 (pen needle, diabetic) diphenhydramine HCl 25 mg tablet 25 mg PO Q4H PRN Juaquin rgy Symptoms 08/06/22 10/14/24 History hydrocodone-acetaminophen 5-325mg 1 tab PO BID PRN blair n 08/06/22 10/14/24 History 5mg-325mg naloxegol 25 mg tablet (Movantik) 25 mg PO QAM PRN blair n 08/06/22 Unknown History omeprazole magnesium 20 mg 20 mg PO DAILY reflux 08/0610/15/24 History tablet,delayed release (Prilosec OTC) promethazine 25 mg tablet 25 mg PO TID PRN Nausea And 08/06/22 Unknown History Vomiting tizanidine 4 mg tablet 4 mg PO QHS muscle spasms 10/14/24 History cholecalciferol (vitamin D3) 50 1,000 unit PO DAILY vi tamin 03/08/23 01/19/24 History mcg (2,000 unit) capsule clopidogrel 75 mg tablet (Plavix) 75 mg PO DAILY anti platelet #90 05/16/23 10/15/24 Rx tabs atorvastatin 80 mg tablet See Rx Instructions .Route 0 06/09/23 10/14/24 Rx .COMPLEX cholesterol #360 TABLETS isosorbide mononitrate 30 mg See Rx Instructions .Rout e 06/09/23 10/15/24 Rx tablet,extended release 24 hr .COMPLEX heart #360 TABL ETS blood-glucose,claim technician,cont #1 ea 10/10/23 Unknown Rx (Dexcom G7 Air Hammer Stripper) apixaban 5 mg tablet (Eliquis) See Rx Instructions .Ro stebbins 12/13/23 10/15/24 Rx .COMPLEX blood thinner #180 tabs melatonin 10 mg capsule 10 mg PO HS PRN insomnia 02/27 Unknown History sacubitril 97 mg-valsartan 103 mg 1 tab PO BID heart # 180 tabs 12/13/23 10/15/24 Rx tablet (Entresto) carvedilol 25 mg tablet 25 mg PO BID blood pressure #180 12/29/23 10/15/24 Rx tabs spironolactone 50 mg tablet 50 mg PO DAILY #90 TABLETS 03/20/24 10/15/24 Rx methimazole 10 mg tablet 10 mg PO DAILY thyroid #90 t abs 07/10/24 10/15/24 Rx furosemide 40 mg tablet 40 mg PO DAILY #30 tabs 01/2810/15/24 Rx insulin glargine-yfgn 100 unit/mL 50 unit (0.5 mL) sub cut DAILY #0 mL 09/11/24 10/15/24 Rx (3 mL) subcutaneous pen Dexcom G7 Sensor (blood-glucose #3 ea 09/17/24 Unknown Rx sensor) insulin lispro 100 unit/mL 36 unit subcut TIDCM 10/15/24 History subcutaneous pen (Humalog KwikPen (U-100) Insulin) dulaglutide 4.5 mg/0.5 mL 4.5 mg (0.5 mL) subcut QWEEK #2 mL 11/07/24 Unknown Rx subcutaneous pen injector (Trulicity) Allergy/AdvReac Type Severity Reaction Status Date / Time amoxicillin trihydrate (From AdvReac Vomiting Verified 11/30/24 15:50 Augmentin) potassium clavulanate (From AdvReac Vomiting Verified 11/30/24 15:50 Augmentin) Family History Father Myocardial infarction Cancer [...] not use caffeine: Yes ROS ROS Narrative General: Denies fever HENT: Denies headache, denies stuffy nose, denies sore throat EYES: Denies changes in vision Resp: Shortness of breath, especially when laying flat, dry cough Cardiac: Some chest tightness with her shortness of breath GI: Denies abdominal pain, denies changes in bowel, denies nausea/vomiting : Denies changes in urination Extremity: Denies any new swelling MSK: Denies weakness Neuro: Denies any numbness/tingling Heme: Denies any bleeding or bruising Skin: Denies rashes Psychiatric: Patient anxious and tearful about lying flat Vital Signs Vital Signs Vital Signs: 11/30/24 15:47 11/30/24 15:50 11/30/24 16:13 Temperature 98.1 F Temperature Source Oral Pulse Rate 88 97 Respiratory Rate 25 H 26 H Respiratory Effort Short of Breath Respiratory Pattern Tachypnea Tachypnea Blood Pressure 154/99 H Blood Pressure Mean 117 Pulse Ox 98 Oxygen Delivery Method Room Air Room Air 11/30/24 16:15 11/30/24 16:45 11/30/24 17:00 Temperature Temperature Source Pulse Rate 95 88 Respiratory Rate 25 H 23 H Respiratory Effort Respiratory Pattern Blood Pressure 127/64 H 127/64 H Blood Pressure Mean 85 85 Pulse Ox 100 100 Oxygen Delivery Method Room Air Room Air 11/30/24 18:00 11/30/24 19:00 Temperature Temperature Source Pulse Rate 86 93 Respiratory Rate 23 H 24 H Respiratory Effort Respiratory Pattern Blood Pressure 126/96 H 145/112 H Blood Pressure Mean 106 123 Pulse Ox 100 100 Oxygen Delivery Method Room Air Weight Weight: 101.4 kg Body Mass Index (BMI) 38.3 Physical Exam Narrative General: Alert, oriented, appears anxious HEENT: Atraumatic, normocephalic Eyes: Anicteric, normal conjunctiva, extraocular movements grossly intact Neck: Supple Respiratory: Slight increased respiratory effort, little bit diminished at the bases but no overt wheezes or crackles Cardiovascular: Regular rate and rhythm GI: Soft, nontender, nondistended Extremities: No significant pitting peripheral edema Musculoskeletal: Moving all extremities Neuro: No overt focal neurological deficits Skin: No rashes appreciated Psych: Cooperative but tearful and anxious Results Lab / Micro Data 11/30/24 16:05 11/30/24 16:05 Labs: Laboratory Results - last 24 hr 11/30/24 16:05: WBC 7.3, RBC 3.97 L, Hgb 12.2, Hct 37.0, MCV 93.2, MCH 30.7, MCHC 33.0, RDW Std Deviation 47.7 H, RDW Coeff of Tomi 14.0, Plt Count 184, MPV 10.4, Immature Gran % (Auto) 0.300, Neut % (Auto) 61.9, Lymph % (Auto) 30.4, Cooper % (Auto) 5.2, Eos % (Auto) 1.9, Baso % (Auto) 0.3, Absolute Neuts (auto) 4.5, Absolute Lymphs (auto) 2.22, Nucleated RBC % 0, D-Dimer Quant (PE/DVT) 0.49, Sodium 137, Potassium 4.4, Chloride 105, Carbon Dioxide 20.1 L, Anion Gap 11, BUN 23 H, Creatinine 0.85, Estim Creat Clear Calc 87.65, Est GFR (MDRD) Non-Af 81, BUN/Creatinine Ratio 26.3 H, Glucose 300 H, Calcium 8.4, Troponin T High Sens 7 D, NT pro BNP II 1366 H Micro: Microbiology 11/30/24 16:40 Mucosa - Nose SARS-CoV-2, Influenza & RSV (PCR) - Final Imaging Radiology Impression Chest X-Ray 11/30/24 16:55 IMPRESSION: Stable mild cardiomegaly. Reading Location: [id number] Assessment & Plan Assessment/Plan (1) Shortness of breath: PLAN: Plan # Increased shortness of breath secondary to acute exacerbation of COPD and acute exacerbation of heart failure reduced ejection fraction overlap -Patient has increased cough and shortness of breath and had some wheezing on presentation and did have partial relief from DuoNebs but also has an elevated BNP and is short of breath when lying flat -Admit to telemetry -proBNP 1300 -CXR similar to previous -Continue IV lasix -Last echo 01/20/2024 with EF 50 to 55% and at that time no diastolic dysfunction -Repeat echo ordered -Daily weights, I's and O's -Fluid restriction, heart healthy diet continuous O2 monitoring -COVID negative, obtain respiratory panel -IV methylprednisone -Scheduled DuoNebs -Albuterol prn -Incentive spirometer -Mucinex - Also will check TSH and free T4 and free T3 given her history of thyroid dysfunction #Paroxysmal Atrial Fibrillation - Continue home Eliquis #Type 2 diabetes mellitus -Glucose checks and sliding scale insulin -Is hyperglycemic, adjust/uptitrate insulin as needed especially given steroid administration # History of hyperthyroidism -Patient on methimazole - Checking thyroid studies in the a.m. #Hx of CAD -w/ previous stenting -Continue home medications #KANIKA -Patient reports she has not been able to be compliant with his CPAP due to the mask, advise she follow-up outpatient to discuss other options to manage her sleep apnea #GERD -Continue PPI #DVT ppx: On chronic full dose anticoagulation Suma Mathew MD Charges/Coding Visit Charges Inpatient E&M: 27508 Init Hosp L2 11/30/241937 <Electronically signed by Suma Mathew MD> Cosigner Signature (if applicable): CC: Dr. Margo Tatum, DO; Dr. Suma Mathew MD~ Signed [facility] Work Phone: 1(489) 288-880106-27-2025 Radiology Diagnostic study [facility]06-04-2025 Evaluation note* Diagnosis Onset Date Resolution Status Admit Date Benign hypertension chronic November 07, 2024 2:31pm Hyperlipidemia chronic November 07, 2024 2:31pm Hyperthyroidism chronic November 07, 2024 2:31pm Multiple thyroid nodules chronic November 07, 2024 2:31pm Obesity chronic November 07, 2024 2:31pm Uncontrolled type 2 diabetes mellitus chronic November 07, 2024 2 :31pm Vitamin D insufficiency chronic J 2024 2:31pm Shortness of breath inactive November 30, 2024 7:04pm CHF (congestive heart failure) chron ic 2024 9:22am Dyspnea on exertion chronic 2024 9:22am Obesity chronic 2024 9:22am KANIKA (obstructive sleep apnea) chroni c 2024 9:22am CHF (congestive heart failure) chron ic January 11, 2025 8:11am Dyspnea on exertion chronic 2024 8:11am Obesity chronic January 11 8:11am KANIKA (obstructive sleep apnea) chroni c January 11, 2025 8:11am [facility] Work Phone: 1(919) 871-951906-04-2025 Evaluation note* Diagnosis Onset Date Resolution Status Admit Date Benign hypertension chronic November 07, 2024 2:31pm Hyperlipidemia chronic November 07, 2024 2:31pm Hyperthyroidism chronic November 07, 2024 2:31pm Multiple thyroid nodules chronic November 07, 2024 2:31pm Obesity chronic November 07, 2024 2:31pm Uncontrolled type 2 diabetes mellitus chronic November 07, 2024 2:31pm Vitamin D insufficiency chronic 2024 2:31pm Shortness of breath inactive November 30, 2024 7:04pm CHF (congestive heart failure) chronic 2024 9:22am Dyspnea on exertion chronic 2024 9:22am Obesity chronic 2024 9:22am KANIKA (obstructive sleep apnea) chroni c 2024 9:22am CHF (congestive heart failure) chronic January 11, 2025 8:11am Dyspnea on exertion chronic 2024 8:11am Obesity chronic January 11 8:11am KANIKA (obstructive sleep apnea) chroni c January 11, 2025 8:11am Cardiomyopathy, ischemic acute January 29, 2025 1:31pm Palpitations acute January 29, 2025 1:31pm Presence of cardiac 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 therapy defibrillator (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 Work Phone: 1(512) 305-991405-12-2025 Radiology Diagnostic study note [facility] Imaging Services [address] [place] [address] Chest 1 View (Portable) MR#: [id number] Acct: [id number] Name: PITO HENDRIX Rep #: [id number] : 1970 F 53 From: Nathan Joy MD PCP: Dr. Margo Tatum DO Status: REG ER Study:Chest 1 View (Portable) Date of Exam: 10/15/24 Exam# [id number] Ordering Dr: Kathy Villafana P. PROCEDURE: CHEST 1 VIEW (PORTABLE) 10/15/2024 [...] cardiomegaly. The lungs are clear. Reading Location: [id number] CC: Dr. Margo Tatum DO; ED PHYSICIAN PROVIDER ~ Sole Molder: Signed [facility]04-21-2025 Radiology Diagnostic study note [facility] Imaging Services [address] [facility] [place] [address] Thyroid MR#: [id number] Acct: [id number] Name: PITO HENDRIX Rep #: [id number] : 1970 F 53 From: Nathan Joy MD PCP: Dr. Margo Tatum DO Status: REG CLI Study:Thyroid Date of Exam: 09/24/24 Exam# [id number] Ordering Dr: Mike Tom CLERICAL ADMINISTRATIVE ASSISTANT-C PROCEDURE: THYROID 09/24/2024 REASON FOR EXAM: THYROID [...] echotexture. Stable bilateral thyroid nodules. Reading Location: [place] [address] CC: CARMEN Tom; Dr. Margo Tatum DO; Dr. Edward Hancock MD ~ Sole Molder: Signed [facility]04-08-2025 Discharge summary [facility] Medical Records Department [address] [place] [id number] Discharge Summary 09/11/24 1601 MR#: [id number] Acct: [id number] Name: PITO HENDRIX Rep #:[id number] : 1970 53 From: Damaris Thibodeaux DO PCP: Dr. Margo Tatum DO Status:ADM IN Location: [facility] [id number] Providers Date of Admission: 09/09/24 Date of Discharge: 09/11/24 Primary Care Physician: Dr. Margo Tatum DO Reason For Visit: COPD AND HEART FAILURE EXACERBATION Diagnosis Discharge Diagnosis (1) Hypoxia: Status: Acute Code(s): R09.02 - Hypoxemia (2) Congestive heart failure (CHF): Status: Acute Code(s): I50.9 - Heart failure, unspecified Medications at Discharge Home Medications BD Ultra-Fine [place] Pen Needle 32 gauge x / (pen needle, diabetic) #100 ea 07/29/22 diphenhydramine [...] #360 TABLETS 06/09/23 blood-glucose meter,continuous (Dexcom G7 Air Hammer Stripper) #1 ea 10/10/23 apixaban 5 mg tablet [...] history presented to the emergency department at [facility] on 09/09/2024 with chief complaint of shortness [...] consolidation. CTA of the chest showed patchy bilateralairspace disease with small effusions and/or atelectasis with [...] home oral agents and follow-up with her marble machine tender this previous be recommended. Blood sugars were eleva gonzalo due to steroid use. She will be [...] next 2 to 4 weeks. She is tofollow- up with endocrinology as previously recommended and her primary carephysician within the next 2 weeks. I have asked that she obtain a BMP to assessher renal function and electrolytes within the next 5 to 7 days. She is to callher primary care physician for this orderas we are not able to order at discharge. Amatory pulse ox was assessed prior to discharge and patient is not requiring supplemental oxygen at rest or with exertion. Patient was discharged home in sta ble condition on 09/11/2024. Discharge diagnoses: Acute hypoxia-resolved Acute on chronic heart failure with reduced ejection fraction-on goal-directed therapy Acute exacerbation of COPD-resolved Transient hypotension-resolved BP-8-zhrlutrngxct Paroxysmal atrial fibrillation Chronic LBBB History of VTE Hypothyroidism with history of thyroid nodules-->patient is following with endocrinology> andoverall plan is to follow-up with Dr. Hancock [...] physician and asked that this be done aswe are not able to order this for [...] by mouth once daily (DME) Dexcom G7 Air Hammer Stripper Misc See Rx Instructions .Route Qty: 1 [...] to their follow-up appointment) Bryan Mitchell NP, CLERICAL ADMINISTRATIVE ASSISTANT-C [Med Staff - Adv Practice Prof] - Within 1 Month (Please call and get an appointment to be seen by cardiology within the next 2 to 4 weeks) Disposition Disposition (needs filled in before D/C Order can be placed): Home, Self Care Charges/Coding Visit Charges Inpatient E&M: 63481 Disch Hosp >30min 09/11/24 1620 Cosigner Signature (if applicable): CC: CARMEN Tom; ROBINSON Mitchell; Dr. Damaris Thibodeaux, ; Dr. Margo Tatum, DO~ Signed [facility]04-08-[facility] Progress note Author Jamie Manrique [facility] Note Date/Time September 10, 2024 11:5 7am [facility] Medical Records Department [address] [place] [address] Progress Note - Hospitalist 09/10/24 0937 MR#: [id number] Acct: [id number] Name: PITO HENDRIX Rep #:[id number] : 1970 53 From: Jamie nolasco DO PCP: Dr. Margo Tatum DO Status:ADM IN Location: [place] [address] Reason for Visit Reason for Visit: Diagnoses [...] % (Auto) 69.4, Lymph % (Auto) 25.2, Cooper % (Auto) 3.9, Eos % (Auto) 1.0, [...] 87.6 H, Lymph % (Auto) 10.4 L, Cooper % (Auto) 1.4, Eos % (Auto) 0.0, [...] pneumonia in the lower lobes. Reading Location: [facility] Chest CTA 09/09/24 16:42 IMPRESSION: NORMAL CHEST CTA. NO EVIDENCE OF ACUTE PULMONARY EMBOLISM. Patchy bilateral airspace opacities, concerning for infiltrates. Small bilateral pleural effusion with atelectasis. Ill-defined low attenuating lesion of the thyroid gland, please correlate with ultrasound. [facility] Physical Exam Const alert, oriented x3 and [...] is a 53-year-old female who presented to [facility] ED on 09/09/2024 with shortness of breath. [...] ? Paroxysmal A-fib, history of LBBB s/p ENVELOPE MACHINE ADJUSTER-D placement, history of VTE: Stable in normal sinus rhythm on admit. Continue home Coreg and Eliquis. ? Hyperthyroidism, history of thyroid nodules: Thyroid nodule noted on CTA [place] admit and had biopsy done recently with inconclusive pathology. Per endocrinology note, recommendation is that she follow-up with Dr. Hancock but she has not called to make an appointment yet. Continue home methimazole. Continueoutpatient follow- up. ? GERD: Continue home PPI. DVT prophylaxis: Not indicated, on Eliquis CODE STATUS: Full code, verified Expected disposition: Home, 1 to 2 days Total clinical time spent by myself addressing the patient's medical issues, reviewing all the data, and collaborating with patient's care team: 35 minutes. Charges/Coding Visit Charges Inpatient E&M: 94943 Subs Hosp L2 09/10/24 1157 <Electronically signed by Jamie Manrique DO> Cosigner Signature (if applicable): CC: ~ Signed [facility] Work Phone: 1(416) 977-268504-07-2025 Progress note [facility] Medical Records Department [address] [place] [address] Progress Note - Hospitalist 09/10/24 0937 MR#: [id number] Acct: [id number] Name: PITO HENDRIX Rep #:[id number] : 1970 53 From: Jamie nolasco DO PCP: Dr. Margo Tatum, Status:ADM IN Location: [place] [address] Reason for Visit Reason for Visit: Diagnoses [...] % (Auto) 69.4, Lymph % (Auto) 25.2, Cooper % (Auto) 3.9, Eos % (Auto) 1.0, [...] 87.6 H, Lymph % (Auto) 10.4 L, Cooper % (Auto) 1.4, Eos % (Auto) 0.0, Baso % (Auto) 0.1, Absolute Neuts (auto) 7.6, Absolute Lymphs (auto) 0.90, Nucleated RBC % 0, Sodium 137, Potassium 3.4, Qagrmqzb921, Carbon Dioxide 17.8 L, Anion Gap 16 H, BUN 23 H, Creatinine 0.82, Estim Creat Clear Calc 86.74, Est GFR (MDRD) Non-Af 85, BUN/Creatinine Ratio 28.5 H, Glucose 315 H, Hemoglobin A1c 9.4, Calcium 9.1 09/10/24 06:21: POC Glucose 292 H Radiography Diagnostic Testing: Radiology Impression Chest X-Ray 09/09/24 16:15 IMPRESSION: Suspect subtle pneumonia in the lower lobes. Reading Location: [facility] Chest CTA 09/09/24 16:42 IMPRESSION: NORMAL CHEST CTA. NO EVIDENCE OF ACUTE PULMONARY EMBOLISM. Patchy bilateral airspace opacities, concerning for infiltrates. Small bilateral pleural effusion with atelectasis. Ill-defined low attenuating lesion of the thyroid gland, please correlate with ultrasound. Reading [facility] Physical Exam Const alert, oriented x3 and [...] is a 53-year-old female who presented to [facility] ED on 09/09/2024 with shortness of breath. [...] ? Paroxysmal A-fib, history of LBBB s/p ENVELOPE MACHINE ADJUSTER-D placement, history of VTE: Stable in normal [...] 35 minutes. Charges/Coding Visit Charges Inpatient E&M: 51822 Subs Hosp L2 09/10/24 1157 Cosigner Signature (if applicable): CC: ~ Signed [facility]04-06-2025 Evaluation note* Diagnosis Onset Date Resolution Status [...] (CHF) resol syeda September 12, 2024 2:41pm [facility] Work Phone: 1(452) 157-683504-06-2025 Evaluation note* Diagnosis Onset Date Resolution Status [...] 2 :31pm Vitamin D insufficiency chronic J une 2024 2:31pm [facility] Work Phone: 1(339) 760-500004-06-2025 Evaluation note* Diagnosis Onset Date Resolution Status [...] 2 :31pm Vitamin D insufficiency chronic J une 2024 2:31pm Shortness of breath acute November 30, 2024 7:04pm [facility] Work Phone: 1(375) 521-466104-06-2025 Evaluation note* Diagnosis Onset Date Resolution Status [...] 2 :31pm Vitamin D insufficiency chronic J une 2024 2:31pm Shortness of breath inactive November 30, 2024 7:04pm CHF (congestive heart failure) acute 2024 9:22am Dyspnea on exertion acute 2024 9:22am KANIKA (obstructive sleep apnea) acute 2024 9:22am Obesity chronic 2024 9:22am [facility] Work Phone: 1(607) 908-539504-06-2025 Evaluation note* Diagnosis Onset Date Resolution Status [...] 2 :31pm Vitamin D insufficiency chronic J une 2024 2:31pm Shortness of breath inactive November 30, 2024 7:04pm CHF (congestive heart failure) chron ic 2024 9:22am Dyspnea on exertion chronic 2024 9:22am Obesity chronic 2024 9:22am KANIKA (obstructive sleep apnea) chroni c 2024 9:22am [facility] Work Phone: 1(196) 314-471904-06-2025 History and physical note Author Francine [facility] Note Date/Time September 09, 2024 8:17 pm [facility] Medical Records Department [address] [facility] [place] [address] H&P Exam - Hospitalist 09/09/24 1802 MR#: [id number] Acct: [id number] Name: PITO HEDNRIX Rep #:[id number] : 1970 53 From: Francine Steele MD PCP: Dr. Margo Tatum, DO Status:ADM IN Location: [place] [address] HPI - General General Date of Admission: [...] gap of 12. Cr was 0.78. ProBNP [id number]. D dimer was 1.06. CHest xray showed [...] hypoxia dueto acute exacerbation of heart failure. [facility] Medical History Obesity Angina pectoris TRAE (acute kidney injury) Hypokalemia Hyperglycemia History of COPD History of MT (myocardial infarction) Cardiomyopathy, ischemic Type 2 diabetes mellitus Antiplatelet or antithrombotic long-term use Anticoagulant long-term use Presence of cardiac 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 therapy defibrillator (ENVELOPE MACHINE ADJUSTER-D) Diabetes Atrial fibrillation Coronary artery disease Hypertension Paroxysmal atrial fibrillation Hyperthyroidism Vomiting Hirsutism Chronic nausea Non-ST elevation (NSTEMI) myocardial infarction Difficult intubation Syncope Thyroid nodule Kidney stones Former smoker COPD (chronic obstructive pulmonary disease) Irregular heart beat Myocardial infarct Seizures COVID-19 virus infection Atherosclerotic heart disease of [place] coronary artery without angina pectoris HFrEF (heart [...] hydrocodone-acetaminophen 5-325mg 1 tab PO Q8H PRN blair n 08/06/22 01/18/24 History 5mg-325mg naloxegol 25 mg tablet (Movantik) 25 mg PO QAM PRN blair n 08/06/22 Unknown History omeprazole magnesium 20 [...] #1 ea 10/10/23 Unknown Rx (Dexcom G7 Air Hammer Stripper) apixaban 5 mg tablet (Eliquis) See Rx Instructions .Ro stebbins 12/13/23 Unknown Rx .COMPLEX blood thinner #180 [...] % (Auto) 69.4, Lymph % (Auto) 25.2, Cooper % (Auto) 3.9, Eos % (Auto) 1.0, [...] pneumonia in the lower lobes. Reading [facility] Chest CTA 09/09/24 16:42 IMPRESSION: NORMAL CHEST CTA. NO EVIDENCE OF ACUTE PULMONARY EMBOLISM. Patchy bilateral airspace opacities, concerning for infiltrates. Small bilateral pleural effusion with atelectasis. Ill-defined low attenuating lesion of the thyroid gland, please correlate with ultrasound. Reading Location: [facility] Assessment & Plan Assessment/Plan (1) Congestive heart [...] elects to be full code. * Total ipah-wa-uamm time 17 minutes. Charges/Coding Visit Charges Inpatient E&M: 10842 Init Hosp L3 Procedures Hospitalists Procedures: 03429 Advncd Care Plan 30 Min 09/09/242016 <Electronically signed by Francine Steele MD> Cosigner Signature (if applicable): CC: Dr. Margo Tatum DO; Dr. Francine Steele MD~ Signed [facility] Work Phone: 1(205) 673-882704-06-2025 History and physical note [facility] Medical Records Department [address] [place] [address] H&P Exam - Hospitalist 09/09/24 1802 MR#: [id number] Acct: [id number] Name: PITO HENDRIX Rep #:[id number] : 1970 53 From: Francine Steele MD PCP: Dr. Margo Malys, DO Status:ADM IN Location: [facility] [id number]- [id number] HPI - General General Date of [...] gap of 12. Cr was 0.78. ProBNP ner3088. D dimer was 1.06. CHest xray showed [...] hypoxia dueto acute exacerbation of heart failure. [facility] Medical History Obesity Angina pectoris TRAE (acute kidney injury) Hypokalemia Hyperglycemia History of COPD History of MT (myocardial infarction) Cardiomyopathy, ischemic Type 2 diabetes mellitus Antiplatelet or antithrombotic long-term use Anticoagulant long-term use Presence of cardiac 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 therapy defibrillator (ENVELOPE MACHINE ADJUSTER-D) Diabetes Atrial fibrillation Coronary artery disease Hypertension Paroxysmal atrial fibrillation Hyperthyroidism Vomiting Hirsutism Chronic nausea Non-ST elevation (NSTEMI) myocardial infarction Difficult intubation Syncope Thyroid nodule Kidney stones Former smoker COPD (chronic obstructive pulmonary disease) Irregular heart beat Myocardial infarct Seizures COVID-19 virus infection Atherosclerotic heart disease of [place] coronary artery without angina pectoris HFrEF (heart [...] hydrocodone-acetaminophen 5-325mg 1 tab PO Q8H PRN blair n 08/06/22 01/18/24 History 5mg-325mg naloxegol 25 mg tablet (Movantik) 25 mg PO QAM PRN blair n 08/06/22 Unknown History omeprazole magnesium 20 [...] #1 ea 10/10/23 Unknown Rx (Dexcom G7 Air Hammer Stripper) apixaban 5 mg tablet (Eliquis) See Rx Instructions .Ro stebbins 12/13/23 Unknown Rx .COMPLEX blood thinner #180 [...] % (Auto) 69.4, Lymph % (Auto) 25.2, Cooper % (Auto) 3.9, Eos % (Auto) 1.0, [...] pneumonia in the lower lobes. Reading [facility] Chest CTA 09/09/24 16:42 IMPRESSION: NORMAL CHEST CTA. NO EVIDENCE OF ACUTE PULMONARY EMBOLISM. Patchy bilateral airspace opacities, concerning for infiltrates. Small bilateral pleural effusion with atelectasis. Ill-defined low attenuating lesion of the thyroid gland, please correlate with ultrasound. Reading [facility] Assessment & Plan Assessment/Plan (1) Congestive [...] elects to be full code. * Total kkbr-cw-sewb time 17 minutes. Charges/Coding Visit Charges Inpatient E&M: 59121 Init Hosp L3 Procedures Hospitalists Procedures: 31597 Advncd Care Plan 30 Min 09/09/242016 Cosigner Signature (if applicable): CC: Dr. Margo Tatum DO; Dr. Francine Steele MD~ Signed [facility]04-06-2025 Discharge summary Author Carlos [facility] Note Date/Time September 09, 2024 6:08 pm [facility] Medical Records Department [address] [place] [address] Emergency Department Summary 09/09/24 MR#: [id number] Acct: [id number] Name: PITO HENDRIX KAYLIN Rep #:[id number] : 1970 53 From: Carlos Saleem MD [...] effective in treating her shortness of breath. [facility] Medical History Obesity Angina pectoris TRAE (acute kidney injury) Hypokalemia Hyperglycemia History of COPD History of MT (myocardial infarction) Cardiomyopathy, ischemic Type 2 diabetes mellitus Antiplatelet or antithrombotic long-term use Anticoagulant long-term use Presence of cardiac 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 therapy defibrillator (ENVELOPE MACHINE ADJUSTER-D) Diabetes Atrial fibrillation Coronary artery disease Hypertension Paroxysmal atrial fibrillation Hyperthyroidism Vomiting Hirsutism Chronic nausea Non-ST elevation (NSTEMI) myocardial infarction Difficult intubation Syncope Thyroid nodule Kidney stones Former smoker COPD (chronic obstructive pulmonary disease) Irregular heart beat Myocardial infarct Seizures COVID-19 virus infection Atherosclerotic heart disease of [place] coronary artery without angina pectoris HFrEF (heart [...] hydrocodone-acetaminophen 5-325mg 1 tab PO Q8H PRN blair n 08/06/22 01/18/24 History 5mg-325mg naloxegol 25 mg tablet (Movantik) 25 mg PO QAM PRN blair n 08/06/22 Unknown History omeprazole magnesium 20 [...] #1 ea 10/10/23 Unknown Rx (Dexcom G7 Air Hammer Stripper) apixaban 5 mg tablet (Eliquis) See Rx Instructions .Ro stebbins 12/13/23 Unknown Rx .COMPLEX blood thinner #180 [...] Lasix 40 mg intravenously. Repeat examination at [id number] does show mild improvement but she still [...] % (Auto) 69.4 Lymph % (Auto) 25.2 Cooper % (Auto) 3.9 Eos % (Auto) 1.0 [...] pneumonia in the lower lobes. Reading [facility] Chest CTA 09/09/24 16:42 IMPRESSION: NORMAL CHEST CTA. NO EVIDENCE OF ACUTE PULMONARY EMBOLISM. Patchy bilateral airspace opacities, concerning for infiltrates. Small bilateral pleural effusion with atelectasis. Ill-defined low attenuating lesion of the thyroid gland, please correlate with ultrasound. Reading [facility] Differential Diagnosis Chest pain/SOB: pulmonary embolism, ACS, pneumothorax, pneumonia, CHF and COPD Management Discussion w/another healthcare provider: Hospitalist Discharge Plan Dx/Rx/DC Orders Clinical Impression: Dyspnea, Pacemaker, Chronic anticoagulation, Elevated d-dimer, Congestive heartfailure (CHF) Disposition Disposition: Acute Care Hospital [facility] What to do if you have Problems For any increased pain, shortness of breath, bleeding, nausea or vomiting, chestpain, or any unexpected problems, contact your Primary Care Provider. Call [facility] ([phone]) or report to the closest Emergency Room. Call 911 if necessary. 09/09/241807 <Electronically signed by Carlos Saleem MD> Cosigner Signature (if applicable): CC: Dr. Margo Tatum, DO ~ Signed [facility] Work Phone: 1(505) 931-875504-06-2025 History and physical note Author [facility] Note Date/Time September 09, 2024 8:17 pm [facility] Medical Records Department [address] [place] [address] H&P Exam - Hospitalist 09/09/241801 MR#: [id number] Acct: [id number] Name: PITO HENDRIX KAYLIN Rep #:[id number] : 1970 53 From: Francine Steele MD PCP: Dr. Margo Tatum DO Status:ADM IN Location: [place] [id number] HPI - General General Date of [...] gap of 12. Cr was 0.78. ProBNP [id number]. D dimer was 1.06. CHest xray showed [...] hypoxia dueto acute exacerbation of heart failure. [facility] Medical History Obesity Angina pectoris TRAE (acute kidney injury) Hypokalemia Hyperglycemia History of COPD History of MT (myocardial infarction) Cardiomyopathy, ischemic Type 2 diabetes mellitus Antiplatelet or antithrombotic long-term use Anticoagulant long-term use Presence of cardiac 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 therapy defibrillator (ENVELOPE MACHINE ADJUSTER-D) Diabetes Atrial fibrillation Coronary artery disease Hypertension Paroxysmal atrial fibrillation Hyperthyroidism Vomiting Hirsutism Chronic nausea Non-ST elevation (NSTEMI) myocardial infarction Difficult intubation Syncope Thyroid nodule Kidney stones Former smoker COPD (chronic obstructive pulmonary disease) Irregular heart beat Myocardial infarct Seizures COVID-19 virus infection Atherosclerotic heart disease of [place] coronary artery without angina pectoris HFrEF (heart [...] hydrocodone-acetaminophen 5-325mg 1 tab PO Q8H PRN blair n 08/06/22 01/18/24 History 5mg-325mg naloxegol 25 mg tablet (Movantik) 25 mg PO QAM PRN blair n 08/06/22 Unknown History omeprazole magnesium 20 mg 20 mg PO DAILY reflux 08/0601/19/24 History tablet,delayed release (Prilosec OTC) promethazine 25 mg tablet 25 mg PO TID PRN PRN Nausea And 03/03/23 Unknown History Vomiting tizanidine 4 mg tablet [...] #1 ea 10/10/23 Unknown Rx (Dexcom G7 Air Hammer Stripper) apixaban 5 mg tablet (Eliquis) See Rx Instructions .Ro stebbins 12/13/23 Unknown Rx .COMPLEX blood thinner #180 [...] mL 06/13/24 Unknown Rx [facility] ([facility]) glipizide 10 mg tablet 10 mg PO [...] % (Auto) 69.4, Lymph % (Auto) 25.2, Cooper % (Auto) 3.9, Eos % (Auto) 1.0, [...] pneumonia in the lower lobes. Reading Location: [facility] Chest CTA 09/09/24 16:42 IMPRESSION: NORMAL CHEST CTA. NO EVIDENCE OF ACUTE PULMONARY EMBOLISM. Patchy bilateral airspace opacities, concerning for infiltrates. Small bilateral pleural effusion with atelectasis. Ill-defined low attenuating lesion of the thyroid gland, please correlate with ultrasound. Reading [facility] Assessment & Plan Assessment/Plan (1) Congestive heart [...] elects to be full code. * Total nqtp-cl-rawo time 17 minutes. Charges/Coding Visit Charges Inpatient E&M: 14112 Init Hosp L3 Procedures Hospitalists Procedures: 30651 Advncd Care Plan 30 Min 09/09/242016 <Electronically signed by Francine Steele MD> Cosigner Signature (if applicable): CC: Dr. Margo Tatum DO; Dr. Francine Steele MD~ Signed [facility] Work Phone: 1(711) 588-634704-06-2025 [facility] [address] [place] [address] Emergency Department Summary 09/09/24 MR#: [id number] Acct: [id number] Name: PITO HENDRIX Rep #:[id number] : 1970 53 From: Carlos Saleem MD PCP: Dr. Margo Tatum, DO Status:REG ER Location: ED HPI History [...] effective in treating her shortness of breath. [facility] Medical History Obesity Angina pectoris TRAE (acute kidney injury) Hypokalemia Hyperglycemia History of COPD History of MT (myocardial infarction) Cardiomyopathy, ischemic Type 2 diabetes mellitus Antiplatelet or antithrombotic long-term use Anticoagulant long-term use Presence of cardiac 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 therapy defibrillator (ENVELOPE MACHINE ADJUSTER-D) Diabetes Atrial fibrillation Coronary artery disease Hypertension Paroxysmal atrial fibrillation Hyperthyroidism Vomiting Hirsutism Chronic nausea Non-ST elevation (NSTEMI) myocardial infarction Difficult intubation Syncope Thyroid nodule Kidney stones Former smoker COPD (chronic obstructive pulmonary disease) Irregular heart beat Myocardial infarct Seizures COVID-19 virus infection Atherosclerotic heart disease of [place] coronary artery without angina pectoris HFrEF (heart [...] hydrocodone-acetaminophen 5-325mg 1 tab PO Q8H PRN blair n 08/06/22 01/18/24 History 5mg-325mg naloxegol 25 mg tablet (Movantik) 25 mg PO QAM PRN blair n 08/06/22 Unknown History omeprazole magnesium 20 [...] #1 ea 10/10/23 Unknown Rx (Dexcom G7 Air Hammer Stripper) apixaban 5 mg tablet (Eliquis) See Rx Instructions .Ro stebbins 12/13/23 Unknown Rx .COMPLEX blood thinner #180 [...] Lasix 40 mg intravenously. Repeat examination at [id number] does show mild improvement butshe still has [...] % (Auto) 69.4 Lymph % (Auto) 25.2 Cooper % (Auto) 3.9 Eos % (Auto) 1.0 [...] pneumonia in the lower lobes. Reading Location: [facility] Chest CTA 09/09/24 16:42 IMPRESSION: NORMAL CHEST CTA. NO EVIDENCE OF ACUTE PULMONARY EMBOLISM. Patchy bilateral airspace opacities, concerning for infiltrates. Small bilateral pleural effusion with atelectasis. Ill-defined low attenuating lesion of the thyroid gland, please correlate with ultrasound. Reading Location: [facility] Differential Diagnosis Chest pain/SOB: pulmonary embolism, ACS, pneumothorax, pneumonia, CHF and COPD Management Discussion w/another healthcare provider: Hospitalist Discharge Plan Dx/Rx/DC Orders Clinical Impression: Dyspnea, Pacemaker, Chronic anticoagulation, Elevated d-dimer, Congestive heartfailure (CHF) Disposition Disposition: Acute Care Hospital [facility] What to do if you have Problems For any increased pain, shortness of breath, bleeding, nausea or vomiting, chestpain, or any unexpected problems, contact your Primary Care Provider. Call [facility] ([phone]) or report tothe closest Emergency Room. Call 911 if necessary. 09/09/24 1808 Cosigner Signature (if applicable): CC: Dr. Margo Tatum, DO ~ Signed [facility]04-06-2025 Radiology Diagnostic study note [facility] Imaging Services [address] [place] [address] CTA Chest W/WO Contrast MR#: [id number] Acct: [id number] Name: PITO HENDRIX Rep #: [id number] : 1970 F 53 From: Ventura Diggs DO PCP: Dr. Margo Tatum, DO Status: REG ER Study:CTA Chest W/WO Contrast Date of Exam: 09/09/24 Exam# [id number] Ordering Dr: Carlos Saleem MD PROCEDURE: CTA [...] gland, please correlate with ultrasound. Reading Location: [facility] CC: Dr. Carlos Saleem MD; Dr. Margo Tatum DO ~ Sole Molder: Signed [facility]04-06-2025 Radiology Diagnostic study note [facility] Imaging Services [address] [place], [place] [address] Chest 1 View (Portable) MR#: [id number] Acct: [id number] Name: PITO HENDRIX Rep #: [id number] : 1970 F 53 From: Pet er Payton MASON PCP: Dr. Margo Tatum DO Status: REG ER Study:Chest 1 View (Portable) Date of Exam: 09/09/24 Exam# [id number] Ordering Dr: Carlos Saleem MD PROCEDURE: CHEST [...] pneumonia in the lower lobes. Reading Location: [facility] CC: Dr. Carlos Saleem MD; Dr. Margo Tatum DO ~ Sole Molder: Signed [facility]01-08-2025 Evaluation note* Diagnosis Onset Date Resolution Status Admit Date Benign hypertension chronic Jan2024 3:07pm Hyperlipidemia chronic June 3:07pm Hyperthyroidism chronic June 132024 3:07pm Multiple thyroid nodules chronic June 13, 2024 3:07pm Obesity chronic June 13, 2 025 3:07pm Type 2 diabetes mellitus chronic June 13, 2024 3:07pm Chronic anticoagulation acute A pril 2024 6:17pm Congestive heart failure (CHF) acute September 09, 2024 6:17pm Dyspnea acute September 09 6:17pm Elevated d-dimer acute September 6:17pm Hypoxia acute September 09 6:17pm Pacemaker acute September 09 6:17pm [facility] [facility] Work Phone: 1(270) 555-335801-08-2025 Evaluation note* Diagnosis Onset Date Resolution Status Admit Date Benign hypertension chronic 2024 3:07pm Hyperlipidemia chronic June 3:07pm Hyperthyroidism chronic June 132024 3:07pm Multiple thyroid nodules chronic June 13, 2024 3:07pm Obesity chronic June 13, 2 025 3:07pm Type 2 diabetes mellitus chronic June 13, 2024 3:07pm Chronic anticoagulation acute A pri2024 8:17pm Congestive heart failure (CHF) acute September 09, 2024 8:17pm Dyspnea acute September 09 8:17pm Elevated d-dimer acute September 8:17pm Hypoxia acute September 09 8:17pm Pacemaker acute September 09 8:17pm [facility] Work Phone: 1(988) 269-669601-08-2025 Evaluation note* Diagnosis Onset Date Resolution Status [...] (CHF) resol syeda September 12, 2024 2:41pm [facility] Work Phone: 1(780) 670-560104-05-2024 Progress note Author Jamie Manrique [facility] September 09, 2023 6:11pm Note Date/Time September 09, 2023 4:00 pm [facility] Medical Records Department [address] [place] [address] Progress Note - Hospitalist 09/09/23 1600 MR#: [id number] Acct: [id number] Name: PITO HENDRIX Rep #:[id number] : 1970 52 From: Jamie nolasco DO PCP: Dr. Margo Tatum, DO Status:ADM IN Location: [place] [address] Reason for Visit Reason for Visit: Diagnoses Urinary tract infection, site not specified (09/06/23) Gross hematuria (09/06/23) senior care (current) use of anticoagulants (09/06/23) Subjective Subjective [...] / 1420 240 / 240 Output Total 39898 / 69848 3000 / 3000 Balance -8780 / -8780 [...] is a 52-year-old female who presented to [facility] ED on 09/06/2023 with recurrent hematuria. 1. [...] 09/08. Hemoglobin trend 7.7 (09/07) > 8.4 (4/5 AM) > 8.9 (4/5 PM). Follow-up CBC tomorrow morning. If hemoglobin remained stable and patient has no signs of bleeding, will plan for discharge home tomorrow afternoon. Continue Macrobid. Chronic medical conditions: ? Obesity: BMI 35 on admit. Complicates hospital course, care and prognosis. ? Paroxysmal A-fib and LBBB s/p ENVELOPE MACHINE ADJUSTER-D placement: Follows with Dr. Ho, last office [...] 35 minutes. Charges/Coding Visit Charges Inpatient E&M: 43345 Subs Hosp L2 09/09/231810 <Electronically signed by Jamie Manrique DO> Cosigner Signature (if applicable): CC: ~ Signed [facility] Work Phone: 1(899) 140-248404-05-2024 Progress [facility] 09, 2023 10:12am Note Date/Time September 09, 2023 10:1 2am [facility] Medical Records Department [address] [place] [address] Progress Note - Urology 09/09/23 1010 MR#: [id number] Acct: [id number] Name: PITO HENDRIX Rep #:[id number] : 1970 52 From: Berenice Wade PCP: Dr. Margo Tatum, DO Status:ADM IN Location: [place] [address] Subjective Subjective She is feeling so much [...] / 1420 240 / 240 Output Total 92220 / 56250 3000 / 3000 Balance -8780 / -8780 [...] Cosigner Signature (if applicable): CC: ~ Signed [facility] Work Phone: 1(561) 712-853704-04-2024 Progress note Author Jamie Manrique [facility] September 08, 2023 1:59pm Note Date/Time September 08, 2023 12:1 8pm [facility] Medical Records Department [address] [place] [address] Progress Note - Hospitalist 09/08/23 1217 MR#: [id number] Acct: [id number] Name: PITO HENDRIX KAYLIN Rep #:[id number] : 1970 52 From: Jamie nolasco DO PCP: Dr. Margo Malys, DO Status:ADM IN Location: ICU CVICU20 4-1 Reason for Visit Reason for Visit: Diagnoses Urinary tract infection, site not specified (09/06/23) Gross hematuria (09/06/23) senior care (current) use of anticoagulants (09/06/23) Subjective Subjective [...] / 1420 Output Total 1999 / 1999 56087 / 89608 2200 / 2200 Balance -1950 / -1950 [...] is a 52-year-old female who presented to [facility] ED on 09/06/2023 with recurrent hematuria. 1. [...] prognosis. ? Paroxysmal A-fib and LBBB s/p ENVELOPE MACHINE ADJUSTER-D placement: Follows with Dr. Ho, last office [...] 35 minutes. Charges/Coding Visit Charges Inpatient E&M: 19059 Subs Hosp L2 09/08/23 8238 <Electronically signed by Jamie Manrique DO> Cosigner Signature (if applicable): CC: ~ Signed [facility] Work Phone: 1(988) 358-433304-04-2024 Procedure [facility] 09-07-2023 Progress note Author Jamie Manrique [facility] September 07, 2023 4:03pm Note Date/Time September 07, 2023 12:2 0pm [facility] Medical Records Department [address] [place] [address] Progress Note - Hospitalist 09/07/23 1220 MR#: [id number] Acct: [id number] Name: PITO HENDRIX Rep #:[id number] : 1970 52 From: Jamie nolasco DO PCP: Dr. Margo Tatum, Status:ADM IN Location: ICU CVICU 4-1 Reason for Visit Reason for Visit: [...] % (Auto) 66.9, Lymph % (Auto) 24.9, Cooper % (Auto) 7.2, Eos % (Auto) 0.6, [...] % (Auto) 56.1, Lymph % (Auto) 34.1, Cooper % (Auto) 8.1, Eos % (Auto) 1.0, [...] is a 52-year-old female who presented to [facility] ED on 09/06/2023 with recurrent hematuria. 1. [...] prognosis. ? Paroxysmal A-fib and LBBB s/p ENVELOPE MACHINE ADJUSTER-D placement: Follows with Dr. Ho, last office [...] 35 minutes. Charges/Coding Visit Charges Inpatient E&M: 88652 Subs Hosp L2 09/07/23 1605 <Electronically signed by Jamie Manrique DO> Cosigner Signature (if applicable): CC: ~ Signed [facility] Work Phone: 1(199) 415-112104-03-2024 Consult note Author Berenice Short [facility] September 07, 2023 12:55pm Note Date/Time September 07, 2023 12:5 5pm [facility] Medical Records Department [address] [place] [address] Consultation 09/07/23 1246 MR#: [id number] Acct: [id number] Name: PITO HENDRIX KAYLIN Rep #:[id number] : 1970 52 From: Berenice Wade PCP: Dr. Margo Tatum, DO Status:ADM IN [...] bladder biopsy. The patient understands and agrees. [facility] Medical History Atherosclerotic heart disease of [place] coronary artery without angina pectoris Atrial fibrillation [...] fibrillation Presence of cardiac 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 therapy defibrillator (ENVELOPE MACHINE ADJUSTER-D) Seizures Syncope Thyroid nodule Type 2 diabetes [...] Last Taken Unknown] flash glucose scanning reader (Bag Borrow or Steal Sanam 2 [place]) #1 ea 08/11/23 [Rx Last Taken Unknown] [...] and non-distended Narrative: She has a 24 Amharic three-way Gaspra catheter indwelling. Continuous bladder irrigation clears very [...] % (Auto) 66.9, Lymph % (Auto) 24.9, Cooper % (Auto) 7.2, Eos % (Auto) 0.6, [...] % (Auto) 56.1, Lymph % (Auto) 34.1, Cooper % (Auto) 8.1, Eos % (Auto) 1.0, [...] Tatum DO; Dr. Navdeep Bourgeois MD~ Signed [facility] Work Phone: 1(787) 281-482304-02-2024 History and physical note Author Navdeep Bourgeois [facility] September 06, 2023 5:32pm Note Date/Time September 06, 2023 5:32 pm [facility] Medical Records Department [address] [place] [address] H&P Exam - Hospitalist 09/06/23 1637 MR#: [id number] Acct: [id number] Name: PITO HENDRIX Rep #:[id number] : 1970 52 From: Navdeep Wade PCP: Dr. Margo Tatum DO Status:REG ER Location: ED HPI - [...] and leukocyte esterase. H&H10.2/31% which is [facility] Atherosclerotic heart disease of [place] coronary artery without angina pectoris Atrial fibrillation [...] fibrillation Presence of cardiac 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 therapy defibrillator (ENVELOPE MACHINE ADJUSTER-D) Seizures Syncope Thyroid nodule Type 2 diabetes [...] Last Taken Unknown] flash glucose scanning reader (Bag Borrow or Steal Sanam 2 [place]) #1 ea 08/11/23 [Rx Last Taken Unknown] [...] % (Auto) 66.9, Lymph % (Auto) 24.9, Cooper % (Auto) 7.2, Eos % (Auto) 0.6, [...] near the bedside, [facility] After discussion of benefits/risks procedures involved with full code, DNR CC arrest and DNR CC, the patient opted for full code. Patient does want artificial life support including intubation, tube feed, ventilator and/chest compression, central venous catheter, vasopressor and DC shock if needed Total time spent in [id number] encounter in discussion of advanced directive 17 minutes. Laboratory Results 09/06/23 12:30: WBC 7.0, RBC 3.17 L, Hgb 10.2 L, Hct 31.1 L, MCV 98.1, MCH 32.2 H, MCHC 32.8, RDW Std Deviation 51.8 H, RDW Coeff of Tomi 14.8 H, Plt Count 220, MPV 9.8, Immature Gran % (Auto) 0.300, Neut % (Auto) 66.9, Lymph % (Auto) 24.9, Cooper % (Auto) 7.2, Eos % (Auto) 0.6, [...] 0 SEEN Charges/Coding Visit Charges Inpatient E&M: 23101 Init Hosp L3 Procedures Hospitalists Procedures: 52565 Advncd Care Plan 30 Min 09/06/23 7812 <Electronically signed by Navdeep Bourgeois MD> Cosigner Signature (if applicable): CC: Dr. Margo Tatum DO; Dr. Navdeep Bourgeois MD~ Signed [facility] Work Phone: 1(389) 856-470904-02-2024 Discharge summary Author Terry Arzate [facility] September 06, 2023 2:58pm Note Date/Time September 06, 2023 11:4 9am [facility] Medical Records Department [address] [place] [address] Emergency Department Summary 09/06/23 MR#: [id number] Acct: [id number] Name: PITO HENDRIX Rep #:[id number] : 1970 52 From: Terry Arzate MD PCP: Dr. Margo Tatum, DO Status:REG ER Location: ED HPI HPI - Female History of Present Illness Chief Complaint: Vag Bleeding Detail of Chief Complaint: Gross hematuria Informant: patient Pain Pain: Negative for Pelvic Pain, Vulvar Pain or Vaginal Pain Current Severity: Mild Maximum Severity: Moderate Worsened by: Movement and Emery Relieved by: Remaining Still, NSAIDS and Tylenol Bleeding Issue: Negative for Vaginal bleeding, Passing clots or Passing tissue Associated Symptoms Associated Symptoms: Positive for Dysuria, Urgency and Hematuria; Negative for Frequency or Missed Period Last known menstrual period: Patient is status post hysterectomy 2003 [facility] Medical History Atherosclerotic heart disease of [place] coronary artery without angina pectoris Atrial fibrillation [...] fibrillation Presence of cardiac 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 therapy defibrillator (ENVELOPE MACHINE ADJUSTER-D) Seizures Syncope Thyroid nodule Type 2 diabetes [...] Last Taken Unknown] flash glucose scanning reader (Bag Borrow or Steal Sanam 2 [place]) #1 ea 08/11/23 [Rx Last Taken Unknown] [...] % (Auto) 66.9 Lymph % (Auto) 24.9 Cooper % (Auto) 7.2 Eos % (Auto) 0.6 [...] Clarity Turbid Urine pH 7.0 Ur Specific [place]abor 1.010 Urine Protein 500 H Urine Glucose (UA) 250 H Urine Ketones Negative Urine Occult Blood 250 H Urine Nitrite Negative Urine Bilirubin Negative Urine Urobilinogen Normal Ur Leukocyte Esterase Negative Urine RBC 50-100 SEEN Urine WBC 0 SEEN Ur Squamous Epith Cells 0 SEEN Urine Bacteria 0 SEEN Urine Mucus 0 SEEN Management Discussion w/another healthcare provider: Dry End Tester (Case was discussed with Dr. Berenice Short. [...] long-term use Disposition Disposition: Acute Care Hospital [facility] What to do if you have Problems For any increased pain, shortness of breath, bleeding, nausea or vomiting, chestpain, or any unexpected problems, contact your Primary Care Provider. Call [facility] ([phone]) or report to the closest Emergency Room. Call 911 if necessary. 09/06/23 145 <Electronically signed by Terry Arzate MD> Cosigner Signature (if applicable): CC: Dr. Margo Tatum DO ~ Signed [facility] Work Phone: 1(438) 967-745304-02-2024 Discharge summary Author Terry Arzate [facility] September 06, 2023 2:58pm Note Date/Time September 06, 2023 11:4 9am [facility] Medical Records Department [address] [place] [address] Emergency Department Summary 09/06/23 MR#: [id number] Acct: [id number] Name: PITO HENDRIX KAYLIN Rep #:[id number] : 1970 52 From: Terry Arzate MD PCP: Dr. Margo Tatum DO Status:REG ER Location: ED HPI HPI - Female History of Present Illness Chief Complaint: Vag Bleeding Detail of Chief Complaint: Gross hematuria Informant: patient Pain Pain: Negative for Pelvic Pain, Vulvar Pain or Vaginal Pain Current Severity: Mild Maximum Severity: Moderate Worsened by: Movement and Emery Relieved by: Remaining Still, NSAIDS and Tylenol Bleeding Issue: Negative for Vaginal bleeding, Passing clots or Passing tissue Associated Symptoms Associated Symptoms: Positive for Dysuria, Urgency and Hematuria; Negative for Frequency or Missed Period Last known menstrual period: Patient is status post hysterectomy 2003 [facility] Medical History Atherosclerotic heart disease of [place] coronary artery without angina pectoris Atrial fibrillation [...] fibrillation Presence of cardiac 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 therapy defibrillator (ENVELOPE MACHINE ADJUSTER-D) Seizures Syncope Thyroid nodule Type 2 diabetes [...] flash glucose scanning reader (FreeStyle Sanam 2 [place]) #1 ea 08/11/23 [Rx Last Taken Unknown] [...] % (Auto) 66.9 Lymph % (Auto) 24.9 Cooper % (Auto) 7.2 Eos % (Auto) 0.6 [...] Clarity Turbid Urine pH 7.0 Ur Specific [place]abor 1.010 Urine Protein 500 H Urine Glucose (UA) 250 H Urine Ketones Negative Urine Occult Blood 250 H Urine Nitrite Negative Urine Bilirubin Negative Urine Urobilinogen Normal Ur Leukocyte Esterase Negative Urine RBC 50-100 SEEN Urine WBC 0 SEEN Ur Squamous Epith Cells 0 SEEN Urine Bacteria 0 SEEN Urine Mucus 0 SEEN Management Discussion w/another healthcare provider: Dry End Tester (Case was discussed with Dr. Berenice Short. [...] long-term use Disposition Disposition: Acute Care Hospital [facility] What to do if you have Problems For any increased pain, shortness of breath, bleeding, nausea or vomiting, chestpain, or any unexpected problems, contact your Primary Care Provider. Call [facility] ([phone]) or report to the closest Emergency Room. Call 911 if necessary. 09/06/23 3735 <Electronically signed by Terry Arzate MD> Cosigner Signature (if applicable): CC: Dr. Margo Tatum, ~ Signed [facility] Work Phone: 1(937) 116-504803-25-2024 Discharge summary Author Damaris Thibodeaux [facility] August 29, 2023 12:17pm Note Date/Time August 29, 2023 11: 54am [facility] Medical Records Department [address] [place] [address] Discharge Summary 08/29/23 1149 MR#: [id number] Acct: [id number] Name: PITO HENDRIX Rep #:[id number] : 1970 52 From: Damaris Thibodeaux DO PCP: Dr. Margo Tatum DO Status:ADM IN Location: [facility] [id number] Providers Date of Admission: 08/26/23 Primary Care [...] flash glucose scanning reader (FreeStyle Sanam 2 [place]) #1 ea 08/11/23 Hospital Course Operations None Procedures - (CT abdomen and pelvis) Summary of Care Provided Minutes Spent on Discharge: 39 Hospital Course: Mrs. Quiros is a 52-year-old obese, white female who presented to the emergency department at [facility] on 08/26/2023 with significant hematuria throughout the [...] ischemic cardiomyopathy status post cardiac 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 with ENVELOPE MACHINE ADJUSTER-D CAD HTN HPL PAF History of hypothyroidism [...] tab PO BID (DME) FreeStyle Sanam 2 [place] Misc See Rx Instructions .Route Qty: 1 [...] Self Care Charges/Coding Visit Charges Inpatient E&M: 55846 Disch Hosp >30min 03/25/24 1217 <Electronically signed by Damaris Thibodeaux DO> Cosigner Signature (if applicable): CC: Dr. Berenice Short MD; Dr. Damaris Thibodeaux DO; Dr. Margo Tatum DO~ Signed [facility] Work Phone: 1(758) 672-258903-25-2024 Consult note Author Ynes Singh [facility] August 29, 2023 12:08pm Note Date/Time August 29, 2023 12: 08pm [facility] Medical Records Department [address] [place] [address] Counseling Note - Pharmacy 08/29/23 1208 MR#: [id number] Acct: [id number] Name: PITO HENDRIX Rep #:[id number] : 1970 52 From: Ynes Singh PCP: Dr. Margo Tatum DO Status:ADM IN Y Location: [place] [address] Pharmacy [place] Med Reconciliation Pharmacy Service has performed discharge [...] flash glucose scanning reader (FreeStyle Sanam 2 [place]) #1 ea 08/11/23 08/29/23 1208 <Electronically signed by Ynes Singh> Date _ Ynes Bermudez Signature (if applicable): Date CC: ~ Signed [facility] Work Phone: 1(946) 386-881003-24-2024 Progress note Author Aidan Staples [facility] August 28, 2023 3:44pm Note Date/Time August 28, 2023 3:4 4pm [facility] Medical Records Department [address] [place] [address] Progress Note - Hospitalist 08/28/23 1538 MR#: [id number] Acct: [id number] Name: PITO HENDRIX Rep #:[id number] : 1970 52 From: Aidan Staples DO PCP: Dr. Margo Tatum DO Status:ADM [facility] Reason for Visit Reason for Visit: Diagnoses Hematuria, unspecified (08/26/23) Other retention of urine (08/26/23) senior care (current) use of anticoagulants (08/26/23) Subjective Subjective [...] / 450 Output Total 1700 / 1700 37404 / 26669 3500 / 3500 Balance -1700 / -1700 -55392.0 / -86953.0 -3050 / -3050 Lab / Micro Data [...] will be given additional potassium #5 paroxysmal S-cjy-rieelhj is on rate limiting medications, apixaban is being held #6 ischemic cardiomyopathy-her last echocardiogram showed a 45% EF, complicates care, medical course, recovery, and prognosis Total clinical time spent by myself addressing the patient's medical issues, reviewing all of her data, and collaborating with patient's care team: 35 minutes Charges/Coding Visit Charges Inpatient E&M: 50904 Subs Hosp L2 08/28/23 1544 <Electronically signed by Aidan Staples DO> Cosigner Signature (if applicable): CC: ~ Signed [facility] Work Phone: 1(195) 167-580103-23-2024 Consult note Author Emiliano Campoverde [facility] August 27, 2023 1:40pm Note Date/Time August 27, 2023 1:4 0pm [facility] Medical Records Department [address] [place] [address] Consultation - Urology 08/27/23 1338 MR#: [id number] Acct: [id number] Name: PITO HENDRIX KAYLIN Rep #:[id number] : 1970 52 From: Emiliano Campoverde MD PCP: Dr. Margo Tatum DO Status:ADM IN Location: [facility] TT053-2 Assessment & Plan Assessment/Plan (1) Acute urinary [...] take out the catheter for voiding trial. [facility] Medical History Atherosclerotic heart disease of [place] coronary artery without angina pectoris Atrial fibrillation [...] fibrillation Presence of cardiac 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 therapy defibrillator (ENVELOPE MACHINE ADJUSTER-D) Seizures Syncope Thyroid nodule Type 2 diabetes [...] Last Taken Unknown] flash glucose scanning reader (Bag Borrow or Steal Sanam 2 [place]) #1 ea 08/11/23 [Rx Last Taken Unknown] [...] % (Auto) 66.1, Lymph % (Auto) 25.5, Cooper% (Auto) 6.6, Eos % (Auto) 1.2, Baso [...] % (Auto) 48.2, Lymph % (Auto) 38.4, Cooper% (Auto) 11.2 H, Eos % (Auto) 1.8, [...] MD; Dr. Emiliano Campoverde MD; Dr. Margo Tatum DO~ Signed [facility] Work Phone: 1(790) 936-504403-23-2024 Progress note Author [facility]idan [facility] August 27, 2023 10:20am Note Date/Time August 27, 2023 10: 20am [facility] Medical Records Department [address] [place] [address] Progress Note - Hospitalist 08/27/23 1012 MR#: [id number] Acct: [id number] Name: PITO HENDRIX Rep #:[id number] : 1970 52 From: Aidan Staples DO PCP: Dr. Margo Tatum DO Status:ADM IN Location: [place] [address] Reason for Visit Reason for Visit: Diagnoses [...] % (Auto) 66.1, Lymph % (Auto) 25.5, Cooper% (Auto) 6.6, Eos % (Auto) 1.2, Baso [...] % (Auto) 48.2, Lymph % (Auto) 38.4, Cooper% (Auto) 11.2 H, Eos % (Auto) 1.8, [...] 21:47 EDT Reading Location ID and State: [facility] [place] Tel , Service support , Physical Exam [...] will be given additional potassium #5 paroxysmal A-cmn-zwpxmzn is on rate limiting medications, apixaban is being held #6 ischemic cardiomyopathy-her last echocardiogram showed a 45% EF, complicates care, medical course, recovery, and prognosis Total clinical time spent by myself addressing the patient's medical issues, reviewing all of her data, and collaborating with patient's care team: 35 minutes Charges/Coding Visit Charges Inpatient E&M: 10685 Subs Hosp L2 08/27/23 1020 <Electronically signed by Aidan Staples DO> Cosigner Signature (if applicable): CC: ~ Signed [facility] Work Phone: 1(127) 982-185403-23-2024 History and physical note Author Perlita Gómez [facility] August 26, 2023 11:03pm Note Date/Time August 26, 2023 10: 40pm [facility] Medical Records Department [address] [facility] [place] [address] H&P Exam - Hospitalist 08/26/232235 MR#: [id number] Acct: [id number] Name: PITO HENDRIX KAYLIN Rep #:[id number] : 1970 52 From: Perlita Gómez MD PCP: Dr. Margo Tatum, DO Status:ADM IN Location: [facility] CP018-2 HPI - General General Date of Admission: 08/26/23 Date of Service: 08/26/23 Chief Complaint: Hematuria HPI Narrative The patient is a 52 y/o F w/ PMHx: Obesity, CAD s/p PCI, Hyperthyroidism, PAF, HTN, HLD, HFrEF/Ischemic cardiomyopathy, Chronic low back pain status post insertion nerve stimulator, COPD, Diabetes mellitus type II, Former tobacco use who presents to the [facility] ED on 08/26/23 with history of [...] wall thickening and pericecal fat stranding possibly sales support representative of cystitis with an indwelling Gaspar catheter [...] perform cystoscopy. In the ED CBI started. [facility] Medical History (Updated 08/26/23 @ 22:[address] Perlita Gómez MD) Atherosclerotic heart disease of [place] coronary artery without angina pectoris Atrial fibrillation [...] fibrillation Presence of cardiac 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 therapy defibrillator (ENVELOPE MACHINE ADJUSTER-D) Seizures Syncope Thyroid nodule Type 2 diabetes [...] flash glucose scanning reader (FreeStyle Sanam 2 [place]) #1 ea 08/11/23 [Rx Last Taken Unknown] [...] % (Auto) 66.1, Lymph % (Auto) 25.5, Cooper% (Auto) 6.6, Eos % (Auto) 1.2, Baso [...] 21:47 EDT Reading Location ID and State: [address] [place] [address] Tel , Service support , Assessment & Plan Assessment/Plan (1) Acute urinary retention: (2) Hematuria: PLAN: Plan The patient is a 52 y/o F w/ PMHx: Obesity, CAD s/p PCI, Hyperthyroidism, PAF, HTN, HLD, HFrEF/Ischemic cardiomyopathy, Chronic low back pain status post insertion nerve stimulator, COPD, Diabetes mellitus type II, Former tobacco use who presents to the [facility] ED on 08/26/23 with history of [...] therapy. #4. HFrEF/ischemic cardiomyopathy: Status post previous ENVELOPE MACHINE ADJUSTER-D [place], most recently assessed 07/25/2023, will cautiously hydrate [...] 16 minutes. Charges/Coding Visit Charges Inpatient E&M: 37609 Init Hosp L3 Procedures Hospitalists Procedures: 28539 Advncd Care Plan 30 Min 08/26/23 2303 <Electronically signed by Perlita Gómez MD> Cosigner Signature (if applicable): CC: Dr. Perlita Gómez MD; Dr. Margo Tatum DO~ Signed [facility] Work Phone: 1(918) 651-733503-23-2024 Discharge summary Author Rell Loera [facility] August 26, 2023 10:41pm Note Date/Time August 26, 2023 7:5 2pm [facility] Medical Records Department [address] [place] [address] Emergency Department Summary 08/26/23 MR#: [id number] Acct: [id number] Name: PITO HENDRIX KAYLIN Rep #:[id number] : 1970 52 From: Rell Loera MD [...] on apixaban for history of atrial fibrillation. [facility] Medical History Atherosclerotic heart disease of [place] coronary artery without angina pectoris Atrial fibrillation [...] fibrillation Presence of cardiac 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 therapy defibrillator (ENVELOPE MACHINE ADJUSTER-D) Seizures Syncope Thyroid nodule Type 2 diabetes [...] Last Taken Unknown] flash glucose scanning reader (Bag Borrow or Steal Sanam 2 [place]) #1 ea 08/11/23 [Rx Last Taken Unknown] [...] % (Auto) 66.1 Lymph % (Auto) 25.5 Cooper % (Auto) 6.6 Eos % (Auto) 1.2 [...] Clarity Turbid Urine pH 7.0 Ur Specific Tabor 1.010 Urine Protein 500 H Urine Glucose [...] 21:47 EDT Reading Location ID and State: [address] [place] [address] Tel , Service support , Management Discussion w/another healthcare provider: Hospitalist and Dry End Tester (urology malini) Discharge Plan Dx/Rx/DC Orders Clinical Impression: Anticoagulated, Hematuria, Acute urinary retention Disposition Disposition: Acute Care [facility] What to do if you have Problems For any increased pain, shortness of breath, bleeding, nausea or vomiting, chestpain, or any unexpected problems, contact your Primary Care Provider. Call [facility] ([phone]) or report to the closest Emergency Room. Call 911 if necessary. 08/26/23 5141 <Electronically signed by Rell Loera MD> Cosigner Signature (if applicable): CC: Dr. Margo Tatum DO ~ Signed [facility] Work Phone: 1(888) 537-623003-22-2024 Discharge summary Author Rell Loera [facility] August 26, 2023 10:41pm Note Date/Time August 26, 2023 7:5 2pm [facility] Medical Records Department [address] [place] [address] Emergency Department Summary 08/26/23 MR#: [id number] Acct: [id number] Name: PITO HENDRIX Rep #:[id number] : 1970 52 From: Rell Loera MD [...] on apixaban for history of atrial fibrillation. [facility] Medical History Atherosclerotic heart disease of [place] coronary artery without angina pectoris Atrial fibrillation [...] fibrillation Presence of cardiac 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 therapy defibrillator (ENVELOPE MACHINE ADJUSTER-D) Seizures Syncope Thyroid nodule Type 2 diabetes [...] Last Taken Unknown] flash glucose scanning reader (Bag Borrow or Steal Sanam 2 [place]) #1 ea 08/11/23 [Rx Last Taken Unknown] [...] % (Auto) 66.1 Lymph % (Auto) 25.5 Cooper % (Auto) 6.6 Eos % (Auto) 1.2 [...] Clarity Turbid Urine pH 7.0 Ur Specific Tabor 1.010 Urine Protein 500 H Urine Glucose [...] Management Discussion w/another healthcare provider: Hospitalist and Dry End Tester (urology malini) Discharge Plan Dx/Rx/DC Orders Clinical Impression: Anticoagulated, Hematuria, Acute urinary retention Disposition Disposition: Acute Care [facility] What to do if you have Problems For any increased pain, shortness of breath, bleeding, nausea or vomiting, chestpain, or any unexpected problems, contact your Primary Care Provider. Call [facility] ([phone]) or report to the closest Emergency Room. Call 911 if necessary. 08/26/232240 <Electronically signed by Rell Loera MD> Cosigner Signature (if applicable): CC: Dr. Margo Tatum DO ~ Signed [facility] Work Phone: 1(737) 927-435604-17-2023 Hospital Discharge instructions* Discharge Instructions* Iza Paulson [...] please using instructed. Please follow-up the painter spring after discharge. If your symptoms fail to improve or worsen despite treatment, please follow-up promptly with your PCP or if unable to do so you may return to the emergency department. documented in this encounter[facility] Physician Emergency department Note* Rupali Shaw MD, [...] . Rupali Shaw MD, PhD 09/21/22 0147 [facility] Phone: 1(631) 737-733104-17-2023 Emergency department Note* Rupali Shaw MD, PhD [...] ER for further evaluation. documented in this [facility] Emergency department Note* Arina Brannon RN - [...] patient sent to ER for further evaluation. [facility]03-15-[facility] Note* Nursing Notes - Reena Hahn RN [...] at time of discharge. Reena Hahn RN [facility]03-15-2023 Miscellaneous Notes* Nursing Notes - Reena Hahn [...] 1: Location: forearm, anterior, left Device/Lot Number: [id number] catheter system Gauge/Length: 20 gauge;1 1/4 in length Unsuccessful Insertion Attempts: Unsuccessful Attempt Location/Site: Pain Prevention/Patient Tolerance: Removal: Additional Comments: Lumen 2: Lumen 3: Peripheral IV Present on Admission: (Retired/Read Only) Location: (Retired/Read Only) Device: (Retired/Read Only) Gauge/Length: Registered Nurse/Lot Number: Unsuccessful Insertion Attempts: (Retired/Read Only) Unsuccessful [...] NSR. Reena Hahn RN documented in this [facility]OS[facility]23 Hospital Discharge instructions* Discharge Instructions* Sbaiha Jane, ORGANIZATIONAL EFFECTIVENESS DIRECTOR-FASHION ARTIST - 08/18/2022 9:58 AM EDT WHAT TO [...] shock. This is not harmful to them. [facility] ([phone]) * Discharge Instr - Activity* FIDELIA Willis [...] Where can you learn more? Go to [email or web address]. * Discharge Instr - Wound Care* FIDELIA [...] skin during body movement. documented in this encounterUniversity Hospitals St. [facility]03-15-2023 Note* Nursing Notes - Nicolasa Mullen RN [...] 1: Location: forearm, anterior, left Device/Lot Number: [id number] catheter system Gauge/Length: 20 gauge;1 1/4 in length Unsuccessful Insertion Attempts: Unsuccessful Attempt Location/Site: Pain Prevention/Patient Tolerance: Removal: Additional Comments: Lumen 2: Lumen 3: Peripheral IV Present on Admission: (Retired/Read Only) Location: (Retired/Read Only) Device: (Retired/Read Only) Gauge/Length: Registered Nurse/Lot Number: Unsuccessful Insertion Attempts: (Retired/Read Only) Unsuccessful [...] pain, redness, swelling, or leakage post insertion. [facility]-15-2023 Note* Nursing Notes - Reena Hahn RN [...] Tele monitor shows NSR. Reena Hahn RN [facility]03-15-2023 History and physical note* Sabiha Jane APRN-LIZ - 08/18/2022 8:14 AM EDT Images from the original note were not included. Chief Complaint Ischemic cardiomyopathy HPI Pito Hendrix is a 51 y.o. female with ischemic CM, CAD s/p MT and PCI, HFrEF (30%), DM, HTN, LBBB,COPD and MR. She had an anterior wall MT with LAD stents (05/2021). Her LVEF remains depressed 30% despite GDMT. Endorses NYHA class III symptoms of fatigue, SOB, PND and needs to take frequent breaks with ADLs and 3 pillow orthopnea. Review of EKG noted LBBB (QRS 160ms). She was referred to Dr. Padron who recommended ENVELOPE MACHINE ADJUSTER-D implant for primary prevention which she presents for today. She reports a few ago noted rapid irregular HR described as pounding out of her chest. She presented to [facility] and underwent stress testing and observation. She [...] N/A; Surgeon: Becky Rodriguez MD, PhD;; Location: [facility] MAIN OR APPENDECTOMY CHOLECYSTECTOMY EXPLORATORY LAPAROTOMY LAMINECTOMY [...] - Other Father Referring MD: Bryan Ruano, FASHION ARTIST PCP Margo SAENZ MD: Serafin Padron Anticoagulation: Eliquis Has the patient missed any doses of anticoagulation: 2.5 days When was the last dose taken: 08/15/22 evening dose Previous antiarrythmic medications: None Shared decision tool for primary prevention ICD NYHA Class III Patient on guideline directed therapy for greater than 3 months? yes Pito Hendrix has been evaluated and determined to meet [facility] primary prevention ICD implant criteriadue to: Ischemic dilated cardiomyopathy with LVEF less than or equal to 35% with NYHA class II or III heart failure and post MT greater than 40 days and post PCI [...] III in setting of LBBB- proceed with ENVELOPE MACHINE ADJUSTER-D for primary prevention. (labs pending) Associated attestation - Serafin Padron MD - 08/18/2022 4:10 PM EDT Discussed procedure with pt and re-addressed risk/benefits. Pt is ready to proceed. Consent signed A and O x 3 Skin W and Dry Proceed with planned procedure [facility] History and physical note* Sabiha Jane, ORGANIZATIONAL EFFECTIVENESS DIRECTOR-FASHION ARTIST - 08/18/2022 8:14 AM EDT Images from the original note were not included. Chief Complaint Ischemic cardiomyopathy HPI Pito Hendrix is a 51 y.o. female with ischemic CM, CAD s/p MT and PCI, HFrEF (30%), DM, HTN, LBBB,COPD and MR. She had an anterior wall MT with LAD stents (05/2021). Her LVEF remains depressed 30% despite GDMT. Endorses NYHA class III symptoms of fatigue, SOB, PND and needs to take frequent breaks with ADLs and 3 pillow orthopnea. Review of EKG noted LBBB (QRS 160ms). She was referred to Dr. Padron who recommended ENVELOPE MACHINE ADJUSTER-D implant for primary prevention which she presents for today. She reports a few ago noted rapid irregular HR described as pounding out of her chest. She presented to [facility] and underwent stress testing and observation. She [...] N/A; Surgeon: Becky Rodriguez MD, PhD;; Location: [facility] MAIN OR APPENDECTOMY CHOLECYSTECTOMY EXPLORATORY LAPAROTOMY LAMINECTOMY [...] - Other Father Referring MD: Bryan Ruano, FASHION ARTIST PCP Margo SAENZ MD: Serafin Padron Anticoagulation: Eliquis Has the patient missed any doses of anticoagulation: 2.5 days When was the last dose taken: 08/15/22 evening dose Previous antiarrythmic medications: None Shared decision tool for primary prevention ICD NYHA Class III Patient on guideline directed therapy for greater than 3 months? yes Pito Hendrix has been evaluated and determined to meet [facility] primary prevention ICD implant criteriadue to: Ischemic dilated cardiomyopathy with LVEF less than or equal to 35% with NYHA class II or III heart failure and post MT greater than 40 days and post PCI [...] III in setting of LBBB- proceed with ENVELOPE MACHINE ADJUSTER-D for primary prevention. (labs pending) Associated attestation - Serafin Padron MD - 08/18/2022 4:10 PM EDT Discussed procedure with pt and re-addressed risk/benefits. Pt is ready to proceed. Consent signed A and O x 3 Skin W and Dry Proceed with planned procedure documented in this encounterU [facility] History and physical note Author Dr. Nguyen [facility] August 07, 2022 5:29am Note Date/Time August 06, 2022 9:56 pm [facility] Medical Records Department [address] [place] [address] [place] [address] H&P Exam - Hospitalist 08/06/22 4570 MR#: [id number] Acct: [id number] Name: PITO HENDRIX Rep #:[id number] : 1970 51 From: Patel Nguyen MD PCP: Dr. Margo Tatum, DO Status:ADM HERMINIA Location: [place] [address]- 1 HPI - General General Date of [...] have a pacemaker with defibrillator place at [facility] on 18 August 2022. [facility] Medical History Atherosclerotic heart disease of [place] coronary artery without angina pectoris Atrial fibrillation [...] Last Taken 08/06/22] flash glucose scanning reader (Excelsior IndustriesStyle Sanam 2 [place]) #1 ea 06/09/22 [Rx Last Taken Unknown] [...] % (Auto) 55.6, Lymph % (Auto) 35.2, Cooper % (Auto) 6.6, Eos % (Auto) 2.0, [...] pain Place on a monitored bed at [facility] Actual CXR image was independently visualized. No [...] A-fib continued Charges/Coding Visit Charges Inpatient E&M: 22509 Init Hosp L3 08/07/22 0529 <Electronically signed by Patel Nguyen MD> Cosigner Signature (if applicable): CC: Dr. Patel Nguyen MD; Dr. Margo Tatum, DO~ Signed [facility] Work Phone: 1(153) 373-498303-04-[address] Ortez [facility] August 07, 2022 12:09am Note Date/Time August 06, 2022 7:09 pm [facility] Medical Records Department [address] [facility] [place] [address] Emergency Department Summary 08/06/22 MR#: [id number] Acct: [id number] Name: PITO HENDRIX Rep #:[id number] : 1970 51 From: Lolis HOPPER PCP: Dr. Margo Tatum DO Status:ADM HERMINIA Location: [place] [address] HPI <WARD Lyle - Last Filed: 08/06/22 21:38> [...] clots. PMH includes CHF, COPD, diabetes mellitus. PFSH <WARD Lyle - Last Filed: 08/06/22 21:38> PFSH Medical History (Updated 08/06/22 @ 23:23 by Shanta Wagoner) Atherosclerotic heart disease of [place] coronary artery without angina pectoris Atrial fibrillation [...] Last Taken 08/06/22] flash glucose scanning reader ([employer] Sanam 2 [place]) #1 ea 06/09/22 [Rx Last Taken Unknown] [...] lesions noted and no wounds <Dr. Arjun Ortez, - Last Filed: 08/06/22 23:53> Physical Exam [...] Delivery Method Room Air <Dr. Arjun Ortez, DO - Last Filed: 08/06/22 23:53> Heart Score History: Moderately Suspicious ECG: Nonspecific Repolarization Age: >45 - <65 years Risk Factors: >/= 3 Risk Factors or History of CAD Troponin: </= Normal Limit Score: 5 MDM <WARD Lyle - Last Filed: 08/06/22 21:38> [facility] Narrative Medical decision making narrative: Patient presenting [...] % (Auto) 55.6 Lymph % (Auto) 35.2 Cooper % (Auto) 6.6 Eos % (Auto) 2.0 [...] Ortez, DO - Last Filed: 08/06/22 23:53> [facility] Lab Data Labs: Laboratory Results - last 24 hr 08/06/22 08/06/22 08/06/22 18:00 18:00 20:26 WBC 6.4 RBC 4.26 Hgb 13.6 Hct 41.2 MCV 96.7 MCH 31.9 MCHC 33.0 RDW Std Deviation 47.3 H RDW Coeff of Tomi 13.4 Plt Count 198 MPV 10.2 Immature Gran % (Auto) 0.300 Neut % (Auto) 55.6 Lymph % (Auto) 35.2 Cooper % (Auto) 6.6 Eos % (Auto) 2.0 [...] a left bundle branch block pattern noted. CT interval was normal at 188. QRS interval was slightly prolonged at 160 milliseconds. QTc interval was slightly prolonged at 504 ms. [place] was borderline left axis deviation at - [...] of breath Disposition Disposition: Acute Care [facility] Discharge Date/Time: 08/06/22 22:39 What to do if you have Problems For any increased pain, shortness of breath, bleeding, nausea or vomiting, chestpain, or any unexpected problems, contact your Primary Care Provider. Call [facility] ([phone]) or report to the closest Emergency Room. Call 911 if necessary. 08/06/222138 <Electronically signed by Lolis HOPPER> Cosigner Signature (if applicable): 08/07/22 0009 <Electronically signed by Arjun Ortez DO> CC: Dr. Margo Tatum, ~ Signed [facility] Work Phone: [phone] 232-764612-03-2022 Hospital Discharge instructions Additional Instructions Please soak thumb in warm water 2-3 times a day for 10-15 mins for the next several days. Keep area clean, dry, and covered. Please return if you begin to show signs of infection such as increased redness, increased swelling, or fever develops.[facility] Work Phone: [phone]) 949-319802-11-2022 NoteHNO ID: [id number] Author: Jeison Ponce APRN.FASHION ARTIST Service: ? Author Type: Nurse Practitioner Type: [...] due to increased w (more content not included)...[facility]02-03-2022 NoteHNO ID: [id number] Author: Max Live APRN.FASHION ARTIST Service: ? Author Type: Nurse Practitioner Type: [...] Patient agreeable to treatment plan. Max Live APRN.[facility]12-14-2021 Evaluation note* Diagnosis Onset Date Resolution Status Atherosclerotic heart diseas e of [place] coronary artery without angina pectoris acute Cardiomyopathy, [...] chronic Left bundle branch block (LBBB) chronic [facility] Work Phone: 1([phone]) 159-601712-14-2021 Evaluation note* Diagnosis Onset Date Resolution Status [...] Hyperthyroidism chronic Left bundle branch block (LBBB) [facility] Work Phone: 1(729) 537-875212-14-2021 Evaluation note* Diagnosis Onset Date Resolution Status [...] Left bundle branch block (LBBB) chronic Syncope [facility] Work Phone: [phone]) 633-863912-14-2021 Evaluation note* Diagnosis Onset Date Resolution Status [...] Left bundle branch block (LBBB) chronic Syncope [facility] Work Phone: 1([phone]) 483-251312-14-2021 Evaluation note* Diagnosis Onset Date Resolution Status [...] Thyrotoxicosis chronic Type 2 diabetes mellitus chr [facility] Work Phone: [phone]) 129-470612-14-2021 Evaluation note* Diagnosis Onset Date Resolution Status [...] acu te Multiple thyroid nodules acu te [facility] Work Phone: [phone]) 226-817312-14-2021 Evaluation note* Diagnosis Onset Date Resolution Status [...] Obesity chronic Type 2 diabetes mellitus chr [facility] Work Phone: [phone]) 113-908312-14-2021 Evaluation note* Diagnosis Onset Date Resolution Status [...] fraction) chronic Left bundle branch block (LBBB) [facility] Work Phone: [phone]) 667-396612-14-2021 Evaluation note* Diagnosis Onset Date Resolution Status Hyperthyroidism chronic Obesity chronic Type 2 diabetes mellitus chr onic History of coronary artery stent placement May 192020 acute HFrEF (heart failure with re duced ejection fraction) chronic Left bundle branch block (LBBB) chronic Cardiomyopathy, ischemic acu te Paroxysmal atrial fibrillation acute Presence of cardiac resynchr onization therapy defibrillator (ENVELOPE MACHINE ADJUSTER-D) acute HFrEF (heart failure with re duced ejection fraction) chronic Left bundle branch block (LBBB) chronic Cardiomyopathy, ischemic acu te Presence of cardiac resynchr onization therapy defibrillator (ENVELOPE MACHINE ADJUSTER-D) acute HFrEF (heart failure with re duced ejection fraction) chronic Left bundle branch block (LBBB) chronic Cardiomyopathy, ischemic acu te History of coronary artery stent placement May 192020 acute Palpitations acute Presence of cardiac resynchr onization therapy defibrillator (ENVELOPE MACHINE ADJUSTER-D) acute Benign hypertension chronic Hyperlipidemia chronic Left bundle branch block (LBBB) chronic Hyperthyroidism chronic Obesity chronic Type 2 diabetes mellitus [facility] Work Phone: 1([phone]) 513-723312-14-2021 Evaluation note* Diagnosis Onset Date Resolution Status History of coronary artery stent placement May 192020 acute HFrEF (heart failure with re duced ejection fraction) chronic Left bundle branch block (LBBB) chronic Cardiomyopathy, ischemic acu te Paroxysmal atrial fibrillation acute Presence of cardiac resynchr onization therapy defibrillator (ENVELOPE MACHINE ADJUSTER-D) acute HFrEF (heart failure with re duced ejection fraction) chronic Left bundle branch block (LBBB) chronic Cardiomyopathy, ischemic acu te Presence of cardiac resynchr onization therapy defibrillator (ENVELOPE MACHINE ADJUSTER-D) acute HFrEF (heart failure with re duced ejection fraction) chronic Left bundle branch block (LBBB) chronic Cardiomyopathy, ischemic acu te History of coronary artery stent placement May 192020 acute Palpitations acute Presence of cardiac resynchr onization therapy defibrillator (ENVELOPE MACHINE ADJUSTER-D) acute Benign hypertension chronic Hyperlipidemia chronic Left bundle branch block (LBBB) chronic Hyperthyroidism chronic Obesity chronic Type 2 diabetes mellitus [facility] Work Phone: Discharge summary Author Dr. Mathew [facility] August 07, 2022 5:02pm Note Date/Time August 07, 2022 4:38 pm [facility] Medical Records Department [address] [place] [address] Instructions for Home/Discharge Instructions 08/07/22 1637 MR#: [id number] Acct: [id number] Name: PITO HENDRIX Rep #:[id number] : 1970 51 From: uSma Mathew MD PCP: Dr. Margo Tatum, DO [...] Restrictions: -Continue home medications -Please call your loom overhauler office upon discharge to schedule hospital follow-up [...] q 14 days (DME) FreeStyle Sanam 2 [place] Misc See Rx Instructions .Route Qty: 1 [...] to schedule your hospital follow-up appointment (ph [phone])) Margo Tatum DO [Primary Care Provider] - Within 1 Week Disposition Disposition (needs filled in before D/C Order can be placed): Home, Self Care 08/07/221701<Electronically signed by Suma Mathew MD>Suma Mathew MD CC: Dr. Patel Nguyen MD; Dr. Margo Tatum DO ~ Signed [facility] Work Phone: Discharge summary Author Dr. Mathew [facility] August 07, 2022 5:14pm Note Date/Time August 07, 2022 5:05 pm [facility] Medical Records Department [address] [place] [address] Discharge Summary 08/07/221701 MR#: [id number] Acct: [id number] Name: AMBERPITO ANN Rep #:[id number] : 1970 51 From: Suma Mathew MD PCP: Dr. Margo Tatum DO Status:ADM HERMINIA Location: [place] [address] Providers Date of Admission: 08/06/22 Date of [...] flash glucose scanning reader (FreeStyle Sanam 2 [place]) #1 ea 06/09/22 flash glucose sensor (FreeStyle Sanam 2 Sensor kit) #2 ea 06/09/22 BD Ultra-Fine Trin[place] Pen Needle 32 gauge [...] on methimazole, diabetes mellitus who presented to [facility] 08/06/2022 with sharp chest pain that felt [...] to have a pacemaker with defibrillator at [facility] on August 18, 2022. She was admitted for echocardiogram and stress test. Stress test showed no myocardial perfusion changes considered diagnostic for associated stress-induced myocardial ischemia. Echo largely unchanged from previous. Patient overall feeling better this evening and is comfortable with discharge with outpatient follow-up. Discharge instructions as followed: -Continue home medications -Please call your loom overhauler office upon discharge to schedule hospital follow-up [...] % (Auto) 55.6, Lymph % (Auto) 35.2, Cooper % (Auto) 6.6, Eos % (Auto) 2.0, [...] % (Auto) 49.3, Lymph % (Auto) 41.0, Cooper % (Auto) 7.2, Eos % (Auto) 2.1, [...] Nguyen Referring Physician: Margo Tatum Performed By: Elisa Peralta, RDCS, RVT D/C Instructions Discharge Diet: - (DASH [...] Restrictions: -Continue home medications -Please call your loom overhauler office upon discharge to schedule hospital follow-up [...] q 14 days (DME) FreeStyle Sanam 2 [place] Misc See Rx Instructions .Route Qty: 1 [...] discharge to schedule your hospital follow-up appointment ( [phone])) Margo Tatum DO [Primary Care Provider] - Within 1 Week Disposition Disposition (needs filled in before D/C Order can be placed): Home, Self Care Charges/Coding Visit Charges Inpatient E&M: 29454 Disch Hosp >30min 08/07/22 1714 <Electronically signed by Suma Mathew MD> Cosigner Signature (if applicable): CC: Dr. Margo Tatum DO; Dr. Suma Mathew MD~ Signed [facility] Work Phone: Discharge summary [facility] 10, 2023 10:56am Note Date/Time September 10, 2023 10:4 3am [facility] Medical Records Department [address] [place] [address] Instructions for Home/Discharge Instructions 09/10/23 1042 MR#: [id number] Acct: [id number] Name: PITO HENDRIX KAYLIN Rep #:[id number] : 1970 52 From: Jamie nolasco DO PCP: Dr. Margo Tatum DO Status:ADM IN Discharge Instructions Diet Discharge Diet: [...] unit subcut DAILY (DME) FreeStyle Sanam 2 [place] Misc See Rx Instructions .Route Qty: 1 [...] Ultra-Fine Trinidad Pen Needle] 32 gauge x needle See Rx Instructions .Route Qty: 100 [...] DO; Dr. Navdeep Bourgeois MD ~ Signed [facility] Work Phone: Discharge summary Author Damaris [facility] Note Date/Time September 11, 2024 4:20 pm [facility] Medical Records Department [address] [place] [address] Discharge Summary 09/11/24 1601 MR#: [id number] Acct: [id number] Name: PITO HENDRIX Rep #:[id number] : 1970 53 From: Damaris Thibodeaux DO PCP: Dr. Margo Tatum DO Status:ADM IN Location: [place] [address] Providers Date of Admission: 09/09/24 Date of [...] x (pen needle, diabetic) #100 ea 07/29/22 diphenhydramine [...] #360 TABLETS 06/09/23 blood-glucose meter,continuous (Dexcom G7 Air Hammer Stripper) #1 ea 10/10/23 apixaban 5 mg tablet [...] history presented to the emergency department at 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 Blood sugars were [...] therapy Acute exacerbation of COPD-resolved Transient hypotension-resolved [id number] Paroxysmal atrial fibrillation Chronic LBBB History of [...] tablet by mouth twice a day (DME) [employer] G7 Sensor Device See Rx Instructions .Route [...] Ultra-Fine [place] Pen Needle] 32 gauge x 5/ needle See Rx Instructions .Route Qty: 100 [...] by mouth once daily (DME) Dexcom G7 Air Hammer Stripper Misc See Rx Instructions .Route Qty: 1 [...] to their follow-up appointment) Bryan Mitchell NP, CLERICAL ADMINISTRATIVE ASSISTANT-C [Med Staff - Adv Practice Prof] - Within 1 Month (Please call and get an appointment to be seen by cardiology within the next 2 to 4 weeks) Disposition Disposition (needs filled in before D/C Order can be placed): Home, Self Care Charges/Coding Visit Charges Inpatient E&M: 73482 Disch Hosp >30min 09/11/24 1620 <Electronically signed by Damaris Thibodeaux DO> Cosigner Signature (if applicable): CC: CARMEN Tom; OLS CARMEN Mitchell; Dr. Damaris Thibodeaux, ; Dr. Margo Tatum DO~ Signed [facility] Work Phone: Evaluation note* Diagnosis Onset Date Resolution Status Atherosclerotic heart diseas e of [place] coronary artery without angina pectoris acute History of coronary artery stent placement acute Sleep apnea acute Type 2 diabetes mellitus acu te Benign hypertension chronic HFrEF (heart failure with reduced ejection fraction) chronic Hyperlipidemia chronic Left bundle branch block (LBBB) chronic Non-ischemic cardiomyopathy chronic Obesity chronic Non-ST elevation MT (NSTEMI) resolved Nonobstructive atherosclerosis of coronary artery resolved Atherosclerotic heart diseas e of [place] coronary artery without angina pectoris acute Cardiomyopathy, ischemic acu te History of coronary artery stent placement acute Type 2 diabetes mellitus acu te Benign hypertension chronic HFrEF (heart failure with reduced ejection fraction) chronic Hyperlipidemia chronic Obesity chronic Non-ST elevation MT (NSTEMI) resolved Atherosclerotic heart diseas e of [place] coronary artery without angina pectoris acute Benign hypertension chronic Hyperlipidemia chronic Non-ischemic cardiomyopathy chronic Acute dehydration resolved Acute kidney injury resolved Bradycardia resolved Chest pain resolved Hyponatremia resolved Near syncope resolved Acute respiratory failure ac steb[place] Congestive heart failure acu te Difficult intubation acute Type 2 diabetes mellitus acu te Left bundle branch block (LBBB) [facility] Work Phone: Evaluation note* Diagnosis Onset Date Resolution Status Atherosclerotic heart diseas e [place] coronary artery without angina pectoris acute History of coronary artery stent placement acute Sleep apnea acute Type 2 diabetes mellitus acu te Benign hypertension chronic HFrEF (heart failure with reduced ejection fraction) chronic Hyperlipidemia chronic Left bundle branch block (LBBB) chronic Non-ischemic cardiomyopathy chronic Obesity chronic Non-ST elevation MT (NSTEMI) resolved Nonobstructive atherosclerosis of coronary artery resolved Atherosclerotic heart diseas e [place] coronary artery without angina pectoris acute Cardiomyopathy, ischemic acu te History of coronary artery stent placement acute Type 2 diabetes mellitus acu te Benign hypertension chronic HFrEF (heart failure with reduced ejection fraction) chronic Hyperlipidemia chronic Obesity chronic Non-ST elevation MT (NSTEMI) resolved Atherosclerotic heart diseas e [place] coronary artery without angina pectoris acute Benign hypertension chronic Hyperlipidemia chronic Non-ischemic cardiomyopathy chronic Acute dehydration resolved Acute kidney injury resolved Bradycardia resolved Chest pain resolved Hyponatremia resolved Near syncope resolved Acute respiratory failure ac [place] Atherosclerotic heart diseas e of [place] coronary artery without angina pectoris acute Cardiomyopathy, ischemic acu te Congestive heart failure acu te Difficult intubation acute History of coronary artery stent placement acute Non-ST elevation (NSTEMI) myocardial infarction acute Type 2 diabetes mellitus acu te Benign hypertension chronic HFrEF (heart failure with reduced ejection fraction) chronic Hyperlipidemia chronic Left bundle branch block (LBBB) chronic Non-ischemic cardiomyopathy [facility] Work Phone: Evaluation note* Diagnosis Onset Date Resolution Status Atherosclerotic heart diseas e [place] coronary artery without angina pectoris acute Cardiomyopathy, ischemic acu te History of coronary artery stent placement acute Type 2 diabetes mellitus acu te Benign hypertension chronic HFrEF (heart failure with reduced ejection fraction) chronic Hyperlipidemia chronic Obesity chronic Non-ST elevation MT (NSTEMI) resolved Atherosclerotic heart diseas e [place] coronary artery without angina pectoris acute Benign hypertension chronic Hyperlipidemia chronic Non-ischemic cardiomyopathy chronic Acute dehydration resolved Acute kidney injury resolved Bradycardia resolved Chest pain resolved Hyponatremia resolved Near syncope resolved Acute respiratory failure ac [place] Atherosclerotic heart diseas e [place] coronary artery without angina pectoris acute Cardiomyopathy, ischemic acu te Congestive heart failure acu te Difficult intubation acute History of coronary artery stent placement acute Non-ST elevation (NSTEMI) myocardial infarction acute Type 2 diabetes mellitus acu te Benign hypertension chronic HFrEF (heart failure with reduced ejection fraction) chronic Hyperlipidemia chronic Left bundle branch block (LBBB) chronic Non-ischemic cardiomyopathy [facility] Work Phone: Evaluation note* Diagnosis Onset Date Resolution Status Acute dehydration resolved Acute kidney injury resolved Bradycardia resolved Chest pain resolved Hyponatremia resolved Near syncope resolved Atherosclerotic heart diseas e [place] coronary artery without angina pectoris acute Cardiomyopathy, [...] fraction) chronic Left bundle branch block (LBBB) [facility] Work Phone: Evaluation note* Diagnosis Other cardiomyopathy Other cardiomyopathy [facility] Left arm pain- Primary Pain in limb [facility] Diagnosis Onset Date Resolution Status Cardiomyopathy, ischemic acu te Paroxysmal atrial fibrillation acute Presence of cardiac resynchr onization therapy defibrillator (ENVELOPE MACHINE ADJUSTER-D) acute HFrEF (heart failure with re duced ejection fraction) chronic Left bundle branch block (LBBB) chronic Cardiomyopathy, ischemic acu te Presence of cardiac resynchr onization therapy defibrillator (ENVELOPE MACHINE ADJUSTER-D) acute HFrEF (heart failure with re duced ejection fraction) chronic Left bundle branch block (LBBB) chronic Cardiomyopathy, ischemic acu te Palpitations acute Presence of cardiac resynchr onization therapy defibrillator (ENVELOPE MACHINE ADJUSTER-D) acute Benign hypertension chronic History of coronary artery stent placement May 192020 chronic Hyperlipidemia chronic Left bundle branch block (LBBB) chronic Hyperthyroidism chronic Obesity chronic Type 2 diabetes mellitus chr onic Cardiomyopathy, ischemic acu te Palpitations acute Presence of cardiac resynchr onization therapy defibrillator (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 Work Phone: Evaluation note* Diagnosis Onset Date Resolution Status Hyperthyroidism chronic Obesity chronic Type 2 diabetes mellitus chr onic Cardiomyopathy, ischemic acu te Dyspnea on exertion acute Palpitations acute Presence of cardiac resynchr onization therapy defibrillator (ENVELOPE MACHINE ADJUSTER-D) acute Benign hypertension chronic History of coronary artery stent placement May 192020 chronic Hyperlipidemia chronic Left bundle branch block (LBBB) chronic Benign hypertension chronic Hyperthyroidism chronic Obesity chronic Type 2 diabetes mellitus [facility] Work Phone: Evaluation note* Diagnosis Onset Date Resolution Status Benign hypertension chronic Hyperthyroidism chronic Obesity chronic Type 2 diabetes mellitus chr onic Multiple thyroid nodules acu te [facility] Work Phone: Evaluation note* Diagnosis Onset Date Resolution Status Benign hypertension chronic Hyperthyroidism chronic Obesity chronic Type 2 diabetes mellitus chr onic Multiple thyroid nodules acu te Benign hypertension chronic Hyperthyroidism chronic Obesity chronic Type 2 diabetes mellitus [facility] Work Phone: Evaluation note* Diagnosis Onset Date Resolution Status Benign hypertension chronic Obesity chronic Type 2 diabetes mellitus chr onic Multiple thyroid nodules acu te Benign hypertension chronic Obesity chronic Type 2 diabetes mellitus chr onic Acute urinary retention acut e Anticoagulated acute Hematuria acute [facility] Work Phone: Evaluation note* Diagnosis Onset [...] Obesity chronic Type 2 diabetes mellitus chr [facility] Work Phone: Evaluation note* Diagnosis Onset [...] chronic Obesity chronic Type 2 diabetes mellitus [facility] Work Phone: History and physical note Author Perlita Gómez [facility] August 26, 2023 11:03pm Note Date/Time August 26, 2023 10: 40pm [facility] Medical Records Department [address] [place] [id number] H&P Exam - Hospitalist 08/26/236 MR#: [id number] Acct: [id number] Name: PITO HENDRIX Rep #:[id number] : 1970 52 From: Perlita Gómez MD PCP: Dr. 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 In the ED CBI started. [facility] Medical History (Updated 08/26/23 @ 22:[address] Perlita Gómez MD) Atherosclerotic heart disease of [place] coronary artery without angina pectoris Atrial fibrillation [...] fibrillation Presence of cardiac 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 therapy defibrillator (ENVELOPE MACHINE ADJUSTER-D) Seizures Syncope Thyroid nodule Type 2 diabetes [...] Last Taken Unknown] flash glucose scanning reader (Bag Borrow or Steal San[employer] [place]) #1 ea 08/11/23 [Rx Last Taken Unknown] [...] % (Auto) 66.1, Lymph % (Auto) 25.5, Cooper% (Auto) 6.6, Eos % (Auto) 1.2, Baso [...] Cholecystectomy, appendectomy and hysterectomy. Electronically Signed: Dean oLvell MD at 21:47 EDT Reading Location ID and State: [facility] / [place] Tel , Service support , Assessment & Plan Assessment/Plan (1) Acute urinary retention: (2) Hematuria: PLAN: Plan The patient is a 52 y/o F w/ PMHx: Obesity, CAD s/p PCI, Hyperthyroidism, PAF, HTN, HLD, HFrEF/Ischemic cardiomyopathy, Chronic low back pain status post insertion nerve stimulator, COPD, Diabetes mellitus type II, Former tobacco use who presents to the [facility] ED on 08/26/23 with history of [...] therapy. #4. 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 Charges/Coding Visit Charges Inpatient E&M: 23666 Init Hosp L3 Procedures Hospitalists Procedures: 74984 Advncd Care Plan 30 Min 08/26/23 2303 <Electronically signed by Perlita Gómez MD> Cosigner Signature (if applicable): CC: Dr. Perlita Gómez MD; Dr. Margo Tatum, DO~ Signed [facility] Work Phone: History and physical note Author Navdeep Bourgeois [facility] September 06, 2023 5:32pm Note Date/Time September 06, 2023 5:32 pm [facility] Medical Records Department [address] [place] [address] H&P Exam - Hospitalist 09/06/23 1637 MR#: [id number] Acct: [id number] Name: PITO HENDRIX Rep #:[id number] : 1970 52 From: Navdeep Wade PCP: [...] and leukocyte esterase. H&H10.2/31% which is further [facility] Medical History Atherosclerotic heart disease of [place] coronary artery without angina pectoris Atrial fibrillation [...] fibrillation Presence of cardiac 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 therapy defibrillator (ENVELOPE MACHINE ADJUSTER-D) Seizures Syncope Thyroid nodule Type 2 diabetes [...] Taken 08/05/22] dapagliflozin propanediol 10 mg tablet (Alexxiga) 10 mg PO DAILY 10/20/22 [History Last [...] Last Taken Unknown] flash glucose scanning reader (Bag Borrow or Steal Sanam [employer] [place]) #1 ea 08/11/23 [Rx Last Taken Unknown] [...] % (Auto) 66.9, Lymph % (Auto) 24.9, Cooper % (Auto) 7.2, Eos % (Auto) 0.6, [...] javadonsulted. Hold Plavix and Eliquis. Urologist Dr. Berenice [...] near the bedside, Arnaldo [facility]. After discussion of benefits/risks procedures involved with full code, DNR CC arrest and DNR CC, the patient opted for full code. Patient does want artificial life support including intubation, tube feed, ventilator and/chest compression, central venous catheter, vasopressor and DC shock if needed Total time spent in [id number] encounter in discussion of advanced directive 17 minutes. Laboratory Results 09/06/23 12:30: WBC 7.0, RBC 3.17 L, Hgb 10.2 L, Hct 31.1 L, MCV 98.1, MCH 32.2 H, MCHC 32.8, RDW Std Deviation 51.8 H, RDW Coeff of Tomi 14.8 H, Plt Count 220, MPV 9.8, Immature Gran % (Auto) 0.300, Neut % (Auto) 66.9, Lymph % (Auto) 24.9, Cooper % (Auto) 7.2, Eos % (Auto) 0.6, [...] 0 SEEN Charges/Coding Visit Charges Inpatient E&M: 13187 Init Hosp L3 Procedures Hospitalists Procedures: 10733 Advncd Care Plan 30 Min 09/06/23 1732 <Electronically signed by Navdeep Bourgeois MD> Cosigner Signature (if applicable): CC: Dr. Margo Tatum DO; Dr. Navdeep Bourgeois MD~ Signed [facility] Work Phone: Hospital Discharge instructions Additional Instructions CAT scans unremarkable. Labs are normal. Ice to abdominal wall. Tylenol for pain. Follow-up if not improving.[facility] Work Phone: Hospital Discharge instructionsAdditional Instructions I am not sure what is causing your chest pain. We have ruled out dangerous causes like heart attacks, blood clots, aortic dissection, or pneumonia. I recommend you follow-up with your primary care doctor or loom overhauler next week. If symptoms worsen come back to the ER. [facility] Work Phone: Reason for referral (narrative)No reason for referral information availableW[facility] Work Phone: Reason for visit Narrative* Auth/Cert Specialty Diagnoses / Procedures Referred By Contac t Referred To Contact Diagnoses Other cardiomyopathy Other cardiomyopathy [I42.8] Procedures CT INSJ/RPLCMT PERM DFB W/TRNSVNS LDS 1/DUAL CHMBR ICD SCHED INSERT BIV DEVICE AND LEADS (70693, 57050) Serafin Padron MD [address] [place] [address] [facility] [address] [place] [address] Referral ID Status Reason Start Date Expiration Date Visits Re quested Visits Authorized [id number] 1 1 [facility] Summary Purpose Family History No Family History Records Found Relationship Condition Age at Onset Recorded Date/T pro father Myocardial infarction Unknown Malignant neoplasm Unknown Exposure to Agent [place] Unknown Diabetes mellitus Unknown sister Diabetes mellitus Unknown Chronic obstructive pulmonary disease Unk nown Relationship Condition Age at Onset Recorded Date/T pro father Myocardial infarction Unknown Malignant neoplasm Unknown Exposure to Agent [place] Unknown Diabetes mellitus Unknown sister Diabetes mellitus Unknown Chronic obstructive pulmonary disease Unk nown mother Cerebrovascular accident (CVA) Unknown Hypertension Unknown Advance Directives No Advanced Directives Records Found Advance Directive Response Recorded Date/ Time Name of Medical Power of Pipefitter chance & klaus jolie May 19, 2021 1:29am Name of Medical Power of Pipefitter Dani Cantrell, Chancetruman RochaJolie, and Aj Jolie May 23, 2021 12:38am Advance Directives on File Yes Junmarcellus 2021 11:17am Name of Medical Power of Pipefitter indra garcia June 04, 2021 2:02pm Name of Medical Power of Pipefitter Chance and Klaus Jolie July 17, 2021 4:55pm Advance Directives No June 19, 2017 8:43am Living Will No September 08, 2021 8:35pm Power of Pipefitter No September 08 8:35pm Advance Directive Response Recorded Date/ Time Name of Medical Power of Pipefitter chance & klaus jolie May 19, 2021 1:29am Name of Medical Power of Pipefitter Dani Cantrell, Chance Jolie, and Aj Jolie May 23, 2021 12:38am Advance Directives on File Yes Mikhail stevens 2021 11:17am Name of Medical Power of Pipefitter indra radha June 04, 2021 2:02pm Name of Medical Power of Pipefitter Chance and Klaus Jolie July 17, 2021 4:55pm Advance Directives No June 19, 2017 8:43am Living Will No September 16, 2021 8:52pm Power of Pipefitter Yes September 16 8:52pm Advance Directive Response Recorded Date/ Time Name of Medical Power of Pipefitter Dani Zhaopat, Chancetruman RochaJolie, and Aj Jolie May 23, 2021 12:38am Advance Directives on File Yes Mikhail 2021 11:17am Name of Medical Power of Pipefitter indra lopezanders June 04, 2021 2:02pm Name of Medical Power of Pipefitter Chance and Klaus Jolie July 17, 2021 4:55pm Name of Medical Power of Pipefitter dani lopezcindy September 16, 2021 8:52pm Advance Directives No June 19, 2017 8:43am Living Will Yes September 20, 2021 7:13pm Power of Pipefitter Yes September 20 7:13pm Advance Directive Response Recorded Date/ Time Name of Medical Power of Pipefitter Chance and Klaus Jolie July 17, 2021 4:55pm Name of Medical Power of Pipefitter dani kumar September 16, 2021 8:52pm Advance Directives No June 19, 2017 8:43am Living Will Yes September 20, 2021 7:13pm Power of Pipefitter Yes September 20 7:13pm Advance Directive Response Recorded Date/ Time Name of Medical Power of Pipefitter Chance and Klaus Jolie July 17, 2021 4:55pm Name of Medical Power of Pipefitter dani lopezcindy September 16, 2021 8:52pm Name of Medical Power of Pipefitter toby dani September 20, 2021 7:13pm Advance Directives No June 19, 2017 8:43am Living Will No November 06, 2021 6 :25pm Power of Pipefitter No November 06, 2021 6:25pm Advance Directive Response Recorded Date/ Time Name of Medical Power of Pipefitter dani lopeztom stewart September 16, 2021 8:52pm Name of Medical Power of Pipefitter toby dani September 20, 2021 7:13pm Advance Directives No June 19, 2017 8:43am Living Will Yes November 17, 2021 4:45am Power of Pipefitter Yes November 17 4:45am Advance Directive Response Recorded Date/ Time Name of Medical Power of Pipefitter dani November 17, 2021 4:45am Name of Medical Power of Pipefitter DANI STEWART January 24, 2022 8:27pm Advance Directives No February 2:11pm Living Will Yes February 26, 2022 2:11pm Power of Pipefitter Yes February 2:11pm Advance Directive Response Recorded Date/ Time Name of Medical Power of Pipefitter DANI STEWART January 24, 2022 8:27pm Advance Directives No February 2:11pm Living Will No April 05 4:06pm Power of Pipefitter No April 05, 2022 4:06pm Advance Directive Response Recorded Date/ Time Name of Medical Power of Pipefitter DANI STEWART January 24, 2022 7:27pm Advance Directives No February 1:11pm Living Will No April 05 3:06pm Power of Pipefitter No April 05, 2022 3:06pm Advance Directive Response Recorded Date/ Time Name of Medical Power of Pipefitter DANI STEWART January 24, 2022 7:27pm Advance Directives No February 1:11pm Living Will No May 08 12:43pm Power of Pipefitter No May 08, 2022 12:43pm Advance Directive Response Recorded Date/ Time Advance Directives No February 1:11pm Living Will No May 08 12:43pm Power of Pipefitter No May 08, 2022 12:43pm Advance Directive Response Recorded Date/ Time Advance Directives No February 1:11pm Living Will No June 30 11:24am Power of Pipefitter No June 30, 2022 11:24am Advance Directive Response Recorded Date/ Time Name of Medical Power of Pipefitter Toby [place]) August 06, 2022 6:03pm Advance Directives No February 1:11pm Living Will Yes August 06, 2022 6:03pm Power of Pipefitter Yes August 06 6:03pm Advance Directive Response Recorded Date/ Time Name of Medical Power of Pipefitter Toby (Dani) August 06, 2022 11:17pm Advance Directives No February 1:11pm Living Will Yes August 06, 2022 11:17pm Power of Pipefitter Yes August 06 11:17pm Latest Code Status on File Code Status Date Activated Date Inactivated Comments Full Code 08/18/2022 1:24 PM Code Status History Code Status Date Activated Date Inactivated Comments Full Code 01/01/2012 1:01 AM 01/11/2012 6:36 PM Full Code-Unverified 12/10/2011 11:37 PM 12/17/2011 8:56 PM Advance Directive Response Recorded Date/ Time Name of Medical Power of Pipefitter Toby (Dani) August 07, 2022 12:17am Advance Directives No February 2:11pm Living Will No September 06, 2022 4:45am Power of Pipefitter No September 06 4:45am Advance Directive Response Recorded Date/ Time Name of Medical Power of Pipefitter Toby (Dani) August 07, 2022 12:17am Name of Medical Power of Pipefitter RICHARD M. October 07, 2022 3:23pm Advance Directives No February 2:11pm Living Will Yes October 07, 2022 3: 23pm Power of Pipefitter Yes October 07, 2022 3:23pm Advance Directive Response Recorded Date/ Time Name of Medical Power of Pipefitter Toby (Dani) August 07, 2022 12:17am Name of Medical Power of Pipefitter RICHARD M. October 07, 2022 3:23pm Advance Directives No February 2:11pm Living Will No October 18, 2022 1 :08pm Power of Pipefitter No October 18, 2022 1:08pm Advance Directive Response Recorded Date/ Time Name of Medical Power of Pipefitter RICHARD M. October 07, 2022 3:23pm Advance Directives No February 2:11pm Living Will No October 18, 2022 1 :08pm Power of Pipefitter No October 18, 2022 1:08pm Advance Directive Response Recorded Date/ Time Name of Medical Power of Pipefitter mom May 18, 2023 9:47am Advance Directives No February 1:11pm Living Will Yes May 18, 023 9:47am Power of Pipefitter Yes May 18, 2023 9:47am Advance Directive Response Recorded Date/ Time Name of Medical Power of Pipefitter mom May 18, 2023 10:47am Advance Directives No February 2:11pm Living Will No August 02 024 10:54am Power of Pipefitter No August 02, 2023 10:54am Advance Directive Response Recorded Date/ Time Name of Medical Power of Pipefitter mom May 18, 2023 10:47am Advance Directives No February 2:11pm Living Will No August 26, 2023 7:26pm Power of Pipefitter No August 25 7:26pm Advance Directive Response Recorded Date/ Time Name of Medical Power of Pipefitter mom May 18, 2023 10:47am Name of Medical Power of Pipefitter Dani Cerna cz August 26, 2023 11:59pm Advance Directives No February 2:11pm Living Will Yes August 26, 2023 11:59pm Power of Pipefitter Yes August 25 11:59pm Advance Directive Response Recorded Date/ Time Name of Medical Power of Pipefitter mom May 18, 2023 10:47am Name of Medical Power of Pipefitter Dani Cerna cz August 26, 2023 11:59pm Name of Medical Power of Pipefitter recalled September 06, 2023 12:45pm Advance Directives No February 2:11pm Living Will Yes September 06, 2023 12:45pm Power of Pipefitter Yes September 05 12:45pm Advance Directive Response Recorded Date/ Time Name of Medical Power of Pipefitter mom May 18, 2023 10:47am Name of Medical Power of Pipefitter Dani Cerna cz August 26, 2023 11:59pm Name of Medical Power of Pipefitter dani cerna cz September 06, 2023 7:32pm Advance Directives No February 2:11pm Living Will Yes September 06, 2023 7:32pm Power of Pipefitter Yes September 05 7:32pm Advance Directive Response Recorded Date/ Time Living Will Yes January 18 4:03pm Do you have a Healthcare Power of Pipefitter? Yes January 19, 2024 4:03pm Living Will No May 30, 7:42pm Do you have a Healthcare Power of Pipefitter? No May 30, 2024 7:42pm Living Will No September 09, 2024 4:10pm Do you have a Healthcare Power of Pipefitter? No September 09, 2024 4:10pm Advance Directives No January 02 9:13am Advance Directive Response Recorded Date/ Time Living Will Yes January 18 4:03pm Do you have a Healthcare Power of Pipefitter? Yes January 19, 2024 4:03pm Living Will No May 30, 7:42pm Do you have a Healthcare Power of Pipefitter? No May 30, 2024 7:42pm Living Will No September 09, 2024 9:08pm Do you have a Healthcare Power of Pipefitter? No September 09, 2024 9:08pm Advance Directives No January 02 9:13am Advance Directive Response Recorded Date/ Time Living Will No September 09, 2024 9:08pm Do you have a Healthcare Power of Pipefitter? No September 09, 2024 9:08pm Do you have a Healthcare Power of Pipefitter? No October 15, 2024 10:57am Advance Directives No January 02 9:13am Advance Directive Response Recorded Date/ Time Living Will No September 09, 2024 9:08pm Do you have a Healthcare Power of Pipefitter? No September 09, 2024 9:08pm Do you have a Healthcare Power of Pipefitter? No October 15, 2024 10:57am Do you have a Healthcare Power of Pipefitter? No November 30, 2024 3:50pm Advance Directives No January 02 9:13am Advance Directive Response Recorded Date/ Time Living Will No September 09, 2024 9:08pm Do you have a Healthcare Pow er of Pipefitter? No September 09, 2024 9:08pm Do you have a Healthcare Pow er of Pipefitter? No October 15, 2024 10:57am Do you have a Healthcare Pow er of Pipefitter? Yes November 30, 2024 7:56pm Name of Medical Power of Pipefitter Gary braun November 30, 2024 7:56pm Advance Directives No January 02 9:13am Advance Directive Response Recorded Date/ Time Living Will No September 09, 2024 9:08pm Do you have a Healthcare Pow er of Pipefitter? No September 09, 2024 9:08pm Do you have a Healthcare Pow er of Pipefitter? No October 15, 2024 10:57am Do you have a Healthcare Pow er of Pipefitter? Yes November 30, 2024 7:56pm Name of Medical Power of Pipefitter Gary barun November 30, 2024 7:56pm Do you have a Healthcare Pow er of Pipefitter? No December 06, 2024 5:49pm Advance Directives No January 02 9:13am Advance Directive Response Recorded Date/ Time Do you have a Healthcare Pow er of Pipefitter? No October 15, 2024 10:57am Do you have a Healthcare Pow er of Pipefitter? Yes November 30, 2024 7:56pm Name of Medical Power of Pipefitter Gary braun November 30, 2024 7:56pm Do you have a Healthcare Pow er of Pipefitter? No December 06, 2024 5:49pm Advance Directives No January 02 9:13am Advance Directive Response Recorded Date/ Time Do you have a Healthcare Pow er of Pipefitter? No October 15, 2024 10:57am Do you have a Healthcare Pow er of Pipefitter? Yes November 30, 2024 7:56pm Name of Medical Power of Pipefitter Gary braun November 30, 2024 7:56pm Do you have a Healthcare Pow er of Pipefitter? No December 06, 2024 5:49pm Do you have a Healthcare Pow er of Pipefitter? No January 11, 2025 3:32pm Advance Directives No January 02 9:13am Advance Directive Response Recorded Date/ Time Living Will Yes September 06, 2023 7:32pm Do you have a Healthcare Pow er of Pipefitter? Yes September 06, 2023 7:32pm Do you have a Healthcare Pow er of Pipefitter? No October 15, 2024 10:57am Do you have a Healthcare Pow er of Pipefitter? Yes November 30, 2024 7:56pm Name of Medical Power of Pipefitter Gary braun November 30, 2024 7:56pm Do you have a Healthcare Pow er of Pipefitter? No December 06, 2024 5:49pm Do you have a Healthcare Pow er of Pipefitter? No January 11, 2025 3:32pm Advance Directives No January 02 9:13am Chief [...] for Visit Atherosclerotic hear t disease of [place] coronary artery without angina pectoris History of coronary artery stent placement Sleep apnea Type 2 diabetes mellitus Benign hypertension HFrEF (heart failure with reduced ejection fraction) Hyperlipidemia Left bundle branch block (LBBB) Non-ischemic cardiomyopathy Obesity Non-ST elevation MT (NSTEMI) Nonobstructive atherosclerosis of coronary artery Atherosclerotic heart disease of [place] coronary artery without angina pectoris Cardiomyopathy, ischemic History of coronary artery stent placement Type 2 diabetes mellitus Benign hypertension HFrEF (heart failure with reduced ejection fraction) Hyperlipidemia Obesity Non-ST elevation MT (NSTEMI) Atherosclerotic heart disease of [place] coronary artery without angina pectoris Benign hypertension [...] for Visit Atherosclerotic hear t disease of [place] coronary artery without angina pectoris History of coronary artery stent placement Sleep apnea Type 2 diabetes mellitus Benign hypertension HFrEF (heart failure with reduced ejection fraction) Hyperlipidemia Left bundle branch block (LBBB) Non-ischemic cardiomyopathy Obesity Non-ST elevation MT (NSTEMI) Nonobstructive atherosclerosis of coronary artery Atherosclerotic heart disease of [place] coronary artery without angina pectoris Cardiomyopathy, ischemic History of coronary artery stent placement Type 2 diabetes mellitus Benign hypertension HFrEF (heart failure with reduced ejection fraction) Hyperlipidemia Obesity Non-ST elevation MT (NSTEMI) Atherosclerotic heart disease of [place] coronary artery without angina pectoris Benign hypertension Hyperlipidemia Non-ischemic cardiomyopathy Acute dehydration Acute kidney injury Bradycardia Chest pain Hyponatremia Near syncope Acute respiratory failure Atherosclerotic heart disease of [place] coronary artery without angina pectoris Cardiomyopathy, ischemic [...] for Visit Atherosclerotic hear t disease of [place] coronary artery without angina pectoris History of coronary artery stent placement Sleep apnea Type 2 diabetes mellitus Benign hypertension HFrEF (heart failure with reduced ejection fraction) Hyperlipidemia Left bundle branch block (LBBB) Non-ischemic cardiomyopathy Obesity Non-ST elevation MT (NSTEMI) Nonobstructive atherosclerosis of coronary artery Atherosclerotic heart disease of [place] coronary artery without angina pectoris Cardiomyopathy, ischemic History of coronary artery stent placement Type 2 diabetes mellitus Benign hypertension HFrEF (heart failure with reduced ejection fraction) Hyperlipidemia Obesity Non-ST elevation MT (NSTEMI) Atherosclerotic heart disease [place] coronary artery without angina pectoris Benign hypertension Hyperlipidemia Non-ischemic cardiomyopathy Acute dehydration Acute kidney injury Bradycardia Chest pain Hyponatremia Near syncope Acute respiratory failure Atherosclerotic heart disease of [place] coronary artery without angina pectoris Cardiomyopathy, ischemic [...] for Visit Atherosclerotic hear t disease of [place] coronary artery without angina pectoris Cardiomyopathy, ischemic History of coronary artery stent placement Type 2 diabetes mellitus Benign hypertension HFrEF (heart failure with reduced ejection fraction) Hyperlipidemia Obesity Non-ST elevation MT (NSTEMI) Atherosclerotic heart disease [place] coronary artery without angina pectoris Benign hypertension Hyperlipidemia Non-ischemic cardiomyopathy Acute dehydration Acute kidney injury Bradycardia Chest pain Hyponatremia Near syncope Acute respiratory failure Atherosclerotic heart disease of [place] coronary artery without angina pectoris Cardiomyopathy, ischemic [...] Hyponatremia Near syncope Atherosclerotic heart disease of [place] coronary artery without angina pectoris Cardiomyopathy, ischemic [...] Hyponatremia Near syncope Atherosclerotic heart disease of [place] coronary artery without angina pectoris Cardiomyopathy, ischemic [...] for Visit Atherosclerotic hear t disease of [place] coronary artery without angina pectoris Cardiomyopathy, ischemic [...] fibrillation Presence of cardiac 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 therapy defibrillator (ENVELOPE MACHINE ADJUSTER-D) HFrEF (heart failure with reduced ejection fraction) Left bundle branch block (LBBB) Cardiomyopathy, ischemic Presence of cardiac 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 therapy defibrillator (ENVELOPE MACHINE ADJUSTER-D) HFrEF (heart failure with reduced ejection fraction) Left bundle branch block (LBBB) Cardiomyopathy, ischemic History of coronary artery stent placement Palpitations Presence of cardiac 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 therapy defibrillator (ENVELOPE MACHINE ADJUSTER-D) Benign hypertension Hyperlipidemia Left bundle branch block [...] fibrillation Presence of cardiac 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 therapy defibrillator (ENVELOPE MACHINE ADJUSTER-D) HFrEF (heart failure with reduced ejection fraction) Left bundle branch block (LBBB) Cardiomyopathy, ischemic Presence of cardiac 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 therapy defibrillator (ENVELOPE MACHINE ADJUSTER-D) HFrEF (heart failure with reduced ejection fraction) Left bundle branch block (LBBB) Cardiomyopathy, ischemic History of coronary artery stent placement Palpitations Presence of cardiac 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 therapy defibrillator (ENVELOPE MACHINE ADJUSTER-D) Benign hypertension Hyperlipidemia Left bundle branch block [...] fibrillation Presence of cardiac 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 therapy defibrillator (ENVELOPE MACHINE ADJUSTER-D) HFrEF (heart failure with reduced ejection fraction) Left bundle branch block (LBBB) Cardiomyopathy, ischemic Presence of cardiac 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 therapy defibrillator (ENVELOPE MACHINE ADJUSTER-D) HFrEF (heart failure with reduced ejection fraction) Left bundle branch block (LBBB) Cardiomyopathy, ischemic History of coronary artery stent placement Palpitations Presence of cardiac 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 therapy defibrillator (ENVELOPE MACHINE ADJUSTER-D) Benign hypertension Hyperlipidemia Left bundle branch block [...] fibrillation Presence of cardiac 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 therapy defibrillator (ENVELOPE MACHINE ADJUSTER-D) HFrEF (heart failure with reduced ejection fraction) Left bundle branch block (LBBB) Cardiomyopathy, ischemic Presence of cardiac 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 therapy defibrillator (ENVELOPE MACHINE ADJUSTER-D) HFrEF (heart failure with reduced ejection fraction) Left bundle branch block (LBBB) Cardiomyopathy, ischemic History of coronary artery stent placement Palpitations Presence of cardiac 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 therapy defibrillator (ENVELOPE MACHINE ADJUSTER-D) Benign hypertension Hyperlipidemia Left bundle branch block [...] fibrillation Presence of cardiac 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 therapy defibrillator (ENVELOPE MACHINE ADJUSTER-D) HFrEF (heart failure with reduced ejection fraction) Left bundle branch block (LBBB) Cardiomyopathy, ischemic Presence of cardiac 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 therapy defibrillator (ENVELOPE MACHINE ADJUSTER-D) HFrEF (heart failure with reduced ejection fraction) Left bundle branch block (LBBB) Cardiomyopathy, ischemic Palpitations Presence of cardiac 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 therapy defibrillator (ENVELOPE MACHINE ADJUSTER-D) Benign hypertension History of coronary artery stent placement Hyperlipidemia Left bundle branch block (LBBB) Hyperthyroidism Obesity Type 2 diabetes mellitus Cardiomyopathy, ischemic Palpitations Presence of cardiac 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 therapy defibrillator (ENVELOPE MACHINE ADJUSTER-D) Benign hypertension History of coronary artery stent placement Hyperlipidemia Left bundle branch block (LBBB) Chief Complaint 4 M FU 1 Y FU E-ORDER 3 M FU NEAR SYNCOPE THYROID NODULES Reason for Visit Hyperthyroidism Obesity Type 2 diabetes mellitus Cardiomyopathy, ischemic Dyspnea on exertion Palpitations Presence of cardiac 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 therapy defibrillator (ENVELOPE MACHINE ADJUSTER-D) Benign hypertension History of coronary artery stent [...] pm Uncontrolled type 2 diabetes mellitus Ap 2024 2:41pm Congestive heart failure (CHF) September [...] of breath November 30, 2024 7:04 pm Chief Complaint Admit Date Pacer Check Remote [...] INCREASED SOB November 30, 2024 7:04 pm INCREASED SOB December 01, 2024 12:1 4pm sob December 06, 2024 5:12p m Chief Complaint Admit Date Pacer Check [...] INCREASED SOB November 30, 2024 7:04 pm INCREASED SOB December 01, 2024 12:1 4pm sob December 06, 2024 5:12p m Inhaler Therapy 2024 9:22a m Reason for Visit Admit Date Congestive [...] of breath November 30, 2024 7:04 pm CHF (congestive heart failure) 2024 9:22am Dyspnea on exertion 2024 9:22a m KANIKA (obstructive sleep apnea) 2024 9:22am Obesity 2024 9:22a m Chief Complaint Admit Date Pacer Check [...] INCREASED SOB November 30, 2024 7:04 pm INCREASED SOB December 01, 2024 12:1 4pm sob December 06, 2024 5:12p m Inhaler Therapy 2024 9:22a m INT LABS 2024 10:25 am Reason for Visit Admit Date Congestive [...] of breath November 30, 2024 7:04 pm CHF (congestive heart failure) 2024 9:22am Dyspnea on exertion 2024 9:22a m Obesity 2024 9:22a m KANIKA (obstructive sleep apnea) 2024 9:22am Chief Complaint Admit Date Pacer Check Remote [...] INCREASED SOB November 30, 2024 7:04 pm INCREASED SOB December 01, 2024 12:1 4pm sob December 06, 2024 5:12p m Inhaler Therapy 2024 9:22a m INT LABS 2024 10:25 am Pacer Check Remote December 17, 2024 7:49 am R06.09 - Other forms of dyspnea December 9:34am Chief Complaint Admit Date Pacer Check Remote September 05, 2024 5:26 [...] INCREASED SOB November 30, 2024 7:04 pm INCREASED SOB December 01, 2024 12:1 4pm sob December 06, 2024 5:12p m Inhaler Therapy 2024 9:22a m INT LABS 2024 10:25 am Pacer Check Remote December 17, 2024 7:49 am R06.09 - Other forms of dyspnea December 9:34am R06.09 - Other forms of dyspnea December 8:08am R06.09 - Other forms of dyspnea December 11:13am Chief Complaint Admit Date NODULE September 24, 2024 12: 37pm CHEST PAIN October 15, 2024 10:31 am Pacer Check Remote October 17, 2024 6:56a m 2 M FU November 07, 2024 2:31p m INCREASED SOB November 30, 2024 7:04 pm INCREASED SOB December 01, 2024 12:1 4pm sob December 06, 2024 5:12p m Inhaler Therapy 2024 9:22a m INT LABS 2024 10:25 am Pacer Check Remote December 17, 2024 7:49 am R06.09 - Other forms of dyspnea December 9:34am R06.09 - Other forms of dyspnea December 8:08am R06.09 - Other forms of dyspnea December 11:13am 1 M FU January 11, 2025 8:1 1am Reason for Visit Admit Date Benign hypertension November 07, 2024 2:31p m Hyperlipidemia November 07, 2024 2:31p m Hyperthyroidism November 07, 2024 2:31p m Multiple thyroid nodules November 07, 2024 2:31pm Obesity November 07, 2024 2:31p m Uncontrolled type 2 diabetes mellitus 2024 2:31pm Vitamin D insufficiency November 07, 2024 2 :31pm Shortness of breath November 30, 2024 7:04 pm CHF (congestive heart failure) 2024 9:22am Dyspnea on exertion 2024 9:22a m Obesity 2024 9:22a m KANIKA (obstructive sleep apnea) 2024 9:22am CHF (congestive heart failure) January 8:11am Dyspnea on exertion January 11, 2025 8:1 1am Obesity January 11, 2025 8:1 1am KANIKA (obstructive sleep apnea) January 8:11am Chief Complaint Admit Date NODULE September 24, 2024 12: 37pm CHEST PAIN October 15, 2024 10:31 am Pacer Check Remote October 17, 2024 6:56a m 2 M FU November 07, 2024 2:31p m INCREASED SOB November 30, 2024 7:04 pm INCREASED SOB December 01, 2024 12:1 4pm sob December 06, 2024 5:12p m Inhaler Therapy 2024 9:22a m INT LABS 2024 10:25 am Pacer Check Remote December 17, 2024 7:49 am R06.09 - Other forms of dyspnea December 9:34am R06.09 - Other forms of dyspnea December 8:08am R06.09 - Other forms of dyspnea December 11:13am 1 M FU January 11, 2025 8:1 1am Chest Pain January 11, 2025 2:0 7pm Chief Complaint Admit Date CHEST PAIN October 15, 2024 10:31 am Pacer Check Remote October 17, 2024 6:56a m 2 M FU November 07, 2024 2:31p m INCREASED SOB November 30, 2024 7:04 pm INCREASED SOB December 01, 2024 12:1 4pm sob December 06, 2024 5:12p m Inhaler Therapy 2024 9:22a m INT LABS 2024 10:25 am Pacer Check Remote December 17, 2024 7:49 am R06.09 - Other forms of dyspnea December 9:34am R06.09 - Other forms of dyspnea December 8:08am R06.09 - Other forms of dyspnea December 11:13am 1 M FU January 11, 2025 8:1 1am Chest Pain January 11, 2025 2:0 7pm G47.30 - Sleep apnea, unspecified January 22, 2025 9:00am shortness of breath, restrictive lung di sease January 23, 2025 5:59pm Chief Complaint Admit Date CHEST PAIN October 15, 2024 10:31 am Pacer Check Remote October 17, 2024 6:56a m 2 M FU November 07, 2024 2:31p m INCREASED SOB November 30, 2024 7:04 pm INCREASED SOB December 01, 2024 12:1 4pm sob December 06, 2024 5:12p m Inhaler Therapy 2024 9:22a m INT LABS 2024 10:25 am Pacer Check Remote December 17, 2024 7:49 am R06.09 - Other forms of dyspnea December 9:34am R06.09 - Other forms of dyspnea December 8:08am R06.09 - Other forms of dyspnea December 11:13am 1 M FU January 11, 2025 8:1 1am Chest Pain January 11, 2025 2:0 7pm G47.30 - Sleep apnea, unspecified January 22, 2025 9:00am shortness of breath, restrictive lung di sease January 23, 2025 5:59pm 1 Y FU January 29, 2025 1: 31pm Reason for Visit Admit Date Benign hypertension November 07, 2024 2:31p m Hyperlipidemia November 07, 2024 2:31p m Hyperthyroidism November 07, 2024 2:31p m Multiple thyroid nodules November 07, 2024 2:31pm Obesity November 07, 2024 2:31p m Uncontrolled type 2 diabetes mellitus 2024 2:31pm Vitamin D insufficiency November 07, 2024 2 :31pm Shortness of breath November 30, 2024 7:04 pm CHF (congestive heart failure) 2024 9:22am Dyspnea on exertion 2024 9:22a m Obesity 2024 9:22a m KANIKA (obstructive sleep apnea) 2024 9:22am CHF (congestive heart failure) January 8:11am Dyspnea on exertion January 11, 2025 8:1 1am Obesity January 11, 2025 8:1 1am KANIKA (obstructive sleep apnea) January 8:11am Cardiomyopathy, ischemic January 29 1:31pm Palpitations January 29, 2025 1: 31pm Presence of cardiac resynchr onization therapy defibrillator (ENVELOPE MACHINE ADJUSTER-D) January 29, 2025 1:31pm Benign hypertension January 29, 2025 1: 31pm Dyspnea on exertion January 29, 2025 1: 31pm History of coronary artery stent placeme nt January 29, 2025 1:31pm Hyperlipidemia January 29, 2025 1: 31pm Left bundle branch block (LBBB) January 052024 1:31pm Reason for Referral Specialty Diagnoses / Procedures Referred By Contac t Referred To Contact Procedures PACEMAKER/ICD INTERROGATION Serafin Padron MD [address] [place] [address] Referral ID Status Reason Start Date Expiration Date V isits Requested Visits Authorized [id number] New Request 08/18/2022 09/12/2023 1 1 Specialty Diagnoses / Procedures Referred By Contac t Referred To Contact Procedures ECG Edward Pandey MD [address] [place] [address] Referral ID Status Reason Start Date Expiration Date V isits Requested Visits Authorized [id number] New Request 09/20/2022 10/15/2023 1 1 Additional Source Comments INFORMATION SOURCE (unrecogn ized section and content) DATE CREATED AUTHOR 08/26/2021 [facility] DATE CREATED AUTHOR AUTHOR'S ORGANIZ ATION 11/22/2022 [facility] DATE CREATED AUTHOR AUTHOR'S ORGANIZ ATION 02/22/2025 [facility] Goals (unrecognized section and content) Goals [...] Provider, Referring P rovider Active Bryan Mitchell CLERICAL ADMINISTRATIVE ASSISTANT, CLERICAL ADMINISTRATIVE ASSISTANT-C Attending Provider Active Team Status: Active Member [...] Status: Inactive Member Role Status Dates Dr. Magro Tatum DO Primary Care Provide r, Attending Provider, Referring Provider Active Team Status: Inactive Member Role Status Dates Dr. Margo Tatum DO Primary Care Provider Active Dr. Arjun Ortez DO Attending Provider, Emergency P rovider Active Team Status: Inactive Member Role Status Dates Dr. Margo Tatum DO Primary Care Provider Active Bryan Mitchell CLERICAL ADMINISTRATIVE ASSISTANT, CLERICAL ADMINISTRATIVE ASSISTANT-C Attending Provider Active Team Status: Inactive Member [...] Inactive Member Role Status Dates Dr. Margo Malys , DO Primary Care Provider Active Dr. Aidan Baird DO Attending Provider Active Team Status: Inactive Member Role Status Dates Dr. Margo Tatum DO Primary Care Provider Active Mike Tom NP-C Attending Provider, Referring Pr ovider Active Team [...] Margo Tatum DO Primary Care Provider Active Mike Tom NP-C Attending Provider, Referring Pr ovider Active Team [...] Dr. 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 Margo Tatum DO Primary Care Provider Active Dr. Cr Ho MD Attending Provider Active Dr. Patel Nguyen MD Referring Provider Active Team Status: Inactive Member Role Status Dates Dr. Margo Tatum DO Primary Care Provider, Referring P vonda Active Bethany Jacobson Active Dr. Cr Ho [...] DO Primary Care Provider Active Bryan Mitchell CLERICAL ADMINISTRATIVE ASSISTANT, CLERICAL ADMINISTRATIVE ASSISTANT-C Attending Provider, Referring Pro vider Active Team Status: Inactive Member Role Status Dates Dr. Margo Tatum DO Primary Care Provider Active Dr. Allen Meraz DO Emergency Provider Active Team Status: Inactive Member Role Status Dates Dr. Margo Tatum DO Primary Care Provider Active Dr. Allen Meraz DO Attending Provider, Emergency Pro vider Active Team Status: Inactive Member Role Status Dates Dr. Margo Malys , DO Primary Care Provider Active Dr. Víctor Alvarez MD Emergency Provider Active Team Status: Active Member Role Status Dates Dr. Margo Tatum DO Primary Care Provider Active Bryan Mitchell NP, CLERICAL ADMINISTRATIVE ASSISTANT-C Attending Provider Active Team Status: Active Member [...] Emergency Provider Active Dr. Navdeep Bourgeois MD Attending Provider Active Team Status: [...] MD Other Provider Active Dr. Jamie Manrique DO Attending Provider, Other Provider Active Team [...] Other Provider Active Dr. Jamie Manrique , Attending Provider Active Dr. Berenice Short MD [...] 2024 End: June 13, 2024 Mike Tom CLERICAL ADMINISTRATIVE ASSISTANT-C Attending Provider Active Start: June 13, 2024 End: June 13, 2024 Team Status: Inactive Member Role Status Dates Dr. Margo Tatum DO Primary Care Provider Active Start: July 05, 2024 End: July 05, 2024 Mike oTm CLERICAL ADMINISTRATIVE ASSISTANT-C Attending Provider Active Start: July 05, 2024 End: July 05, 2024 Mike Tom CLERICAL ADMINISTRATIVE ASSISTANT-C Referring Provider Active Start: July 05, 2024 [...] 2024 End: September 11, 2024 Dr. Cr oH MD Attending Provider Active S tart: September [...] End: September 11, 2024 Dr. Damaris Thibodeaux , Attending Provider Active S tart: September 09, [...] Attending Provider Active Start: November 30, 2024 Team Status: Inactive Member Role/Relationship Status Dates Dr. Margo Tatum DO Primary Care Provider Active Start: November 30, 2024 End: December 01, 2024 Dr. Allen Meraz DO Emergency Provider Active S tart: November 30, 2024 End: December 01, 2024 Dr. Suma Mathew MD Admit Provider Active Star t: November 30, 2024 End: December 01, 2024 Dr. Suma Mathew MD Other Provider Active Star t: November 30, 2024 End: December 01, 2024 Dr. Aidan Staples DO Attending Provider Active Start: November 30, 2024 End: December 01, 2024 Team Status: Active Member Role/Relationship Status Dates Dr. Margo Tatum DO Primary Care Provider Active Start: December 01, 2024 Dr. Estrellita Alarcon MD Attending Provider Active Start: December 01, 2024 Team Status: Active Member Role/Relationship Status Dates Dr. Margo Tatum DO Primary Care Provider Active Start: December 01, 2024 Dr. Allen Meraz DO Emergency Provider Active S tart: December 01, 2024 Dr. Suma Mathew MD Admit Provider Active Star t: December 01, 2024 Dr. Suma Mathew MD Other Provider Active Star t: December 01, 2024 Dr. Aidan Staples DO Attending Provider Active Start: December 01, 2024 Dr. Aidan Staples DO Other Provider Active S tart: December 01, 2024 Team Status: Inactive Member Role/Relationship Status Dates Dr. Margo Tatum DO Primary Care Provider Active Start: December 06, 2024 End: December 06, 2024 Dr. Rell Loera MD Referring Provider Active Start: December 06, 2024 End: December 06, 2024 Dr. Rell Loera MD Emergency Provider Active Start: December 06, 2024 End: December 06, 2024 Team Status: Inactive Member Role/Relationship Status Dates Dr. Margo Tatum DO Primary Care Provider Active Start: 2024 End: 2024 Dr. Margo Tatum DO Referring Provider Active St art: 2024 End: 2024 Dr. Herminio Magana DO Attending Provider Active S tart: 2024 End: 2024 Team Status: Inactive Member Role/Relationship Status Dates Dr. Margo Tatum DO Primary Care Provider Active Start: December 06, 2024 End: December 06, 2024 Dr. Rell Loera MD Attending Provider Active Start: December 06, 2024 End: December 06, 2024 Dr. Rell Loera MD Referring Provider Active Start: December 06, 2024 End: December 06, 2024 Dr. Rell Loera MD Emergency Provider Active Start: December 06, 2024 End: December 06, 2024 Team Status: Inactive Member Role/Relationship Status Dates Dr. Margo Tatum DO Primary Care Provider Active Start: 2024 End: 2024 Dr. Herminio Magana DO Attending Provider Active S tart: 2024 End: 2024 Dr. Herminio Magana DO Referring Provider Active S tart: 2024 End: 2024 Team Status: Inactive Member Role/Relationship Status Dates Dr. Margo Tatum DO Primary Care Provider Active Start: December 17, 2024 End: December 17, 2024 Dr. Cr Ho MD Attending Provider Active S tart: December 17, 2024 End: December 17, 2024 Team Status: Active Member Role/Relationship Status Dates Dr. Margo Tatum DO Primary Care Provider Active Start: December 18, 2024 Dr. Herminio Magana DO Attending Provider Active S tart: December 18, 2024 Dr. Herminio Magana DO Referring Provider Active S tart: December 18, 2024 Team Status: Inactive Member Role/Relationship Status Dates Dr. Margo Tatum DO Primary Care Provider Active Start: December 18, 2024 End: December 18, 2024 Dr. Herminio Magana DO Attending Provider Active S tart: December 18, 2024 End: December 18, 2024 Dr. Herminio Magana DO Referring Provider Active S tart: December 18, 2024 End: December 18, 2024 Team Status: Inactive Member Role/Relationship Status [...] tart: September 11, 2024 Dr. Damaris Thibodeaux , Other Provider Active Start : September 11, [...] September 12, 2024 End: September 12, 2024 Mike Tom CLERICAL ADMINISTRATIVE ASSISTANT-C Attending Provider Active Start: September 12, 2024 End: September 12, 2024 Team Status: Inactive Member Role/Relationship Status Dates Dr. Margo Tatum DO Primary Care Provider Active Start: September 24, 2024 End: September 24, 2024 Mike Tom CLERICAL ADMINISTRATIVE ASSISTANT-C Attending Provider Active Start: September 24, 2024 End: September 24, 2024 Mike Tom CLERICAL ADMINISTRATIVE ASSISTANT-C Referring Provider Active Start: September 24, 2024 [...] End: October 15, 2024 Dr. Arjun Ortez , Emergency Provider Active Start: October 15, 2024 [...] 2024 End: November 07, 2024 Team Status: Inactive Member Role/Relationship Status Dates Dr. Margo Tatum DO Primary Care Provider Active Start: November 30, 2024 End: December 01, 2024 Dr. Allen Meraz DO Emergency Provider Active S tart: November 30, 2024 End: December 01, 2024 Dr. Suma Mathew MD Admit Provider Active Star t: November 30, 2024 End: December 01, 2024 Dr. Suma Mathew MD Other Provider Active Star t: November 30, 2024 End: December 01, 2024 Dr. Aidan Staples DO Attending Provider Active Start: November 30, 2024 End: December 01, 2024 Team Status: Active Member Role/Relationship Status Dates Dr. Margo Tatum DO Primary Care Provider Active Start: December 01, 2024 Dr. Estrellita Alarcon MD Attending Provider Active Start: December 01, 2024 Team Status: Active Member Role/Relationship Status Dates Dr. Margo Tatum DO Primary Care Provider Active Start: December 01, 2024 Dr. Allen Meraz DO Emergency Provider Active S tart: December 01, 2024 Dr. Suma Mathew MD Admit Provider Active Star t: December 01, 2024 Dr. Suma Mathew MD Other Provider Active Star t: December 01, 2024 Dr. Aidan Staples DO Attending Provider Active Start: December 01, 2024 Dr. Aidan Staples DO Other Provider Active S tart: December 01, 2024 Team Status: Inactive Member Role/Relationship Status Dates Dr. Margo Tatum DO Primary Care Provider Active Start: December 04, 2024 Dr. Berenice Short MD Attending Provider Active Start: December 04, 2024 Team Status: Inactive Member Role/Relationship Status Dates Dr. Margo Tatum DO Primary Care Provider Active Start: December 27, 2024 End: December 27, 2024 Dr. Herminio Magana DO Attending Provider Active S tart: December 27, 2024 End: December 27, 2024 Dr. Herminio Magana DO Referring Provider Active S tart: December 27, 2024 End: December 27, 2024 Team Status: Active Member Role/Relationship Status Dates Dr. Margo Tatum DO Primary Care Provider Active Start: December 28, 2024 Dr. Herminio Magana DO Attending Provider Active S tart: December 28, 2024 Dr. Herminio Magana DO Referring Provider Active S tart: December 28, 2024 Dr. Herminio Magana DO Other Provider Active Start : December 28, 2024 Team Status: Inactive Member Role/Relationship Status Dates Dr. Margo Tatum DO Primary Care Provider Active Start: September 24, 2024 End: September 24, 2024 Mike Tom NP-C Attending Provider Active Start: September 24, 2024 End: September 24, 2024 Mike Tom NP-C Referring Provider Active Start: September 24, 2024 [...] End: October 15, 2024 Dr. Arjun Ortez , Emergency Provider Active Start: October 15, 2024 [...] 2024 End: November 07, 2024 Team Status: Inactive Member Role/Relationship Status Dates Dr. Margo Tatum DO Primary Care Provider Active Start: November 30, 2024 End: December 01, 2024 Dr. Allen Meraz DO Emergency Provider Active S tart: November 30, 2024 End: December 01, 2024 Dr. Suma Mathew MD Admit Provider Active Star t: November 30, 2024 End: December 01, 2024 Dr. Suma Mathew MD Other Provider Active Star t: November 30, 2024 End: December 01, 2024 Dr. Aidan Staples DO Attending Provider Active Start: November 30, 2024 End: December 01, 2024 Team Status: Active Member Role/Relationship Status Dates Dr. Margo Tatum DO Primary Care Provider Active Start: December 01, 2024 Dr. Estrellita Alarcon MD Attending Provider Active Start: December 01, 2024 Team Status: Active Member Role/Relationship Status Dates Dr. Margo Tatum DO Primary Care Provider Active Start: December 01, 2024 Dr. Allen Meraz DO Emergency Provider Active S tart: December 01, 2024 Dr. Suma Mathew MD Admit Provider Active Star t: December 01, 2024 Dr. Suma Mathew MD Other Provider Active Star t: December 01, 2024 Dr. Aidan Staples DO Attending Provider Active Start: December 01, 2024 Dr. Aidan Staples DO Other Provider Active S tart: December 01, 2024 Team Status: Inactive Member Role/Relationship Status Dates Dr. Margo Tatum DO Primary Care Provider Active Start: December 04, 2024 Dr. Berenice Short MD Attending Provider Active Start: December 04, 2024 Team Status: Inactive Member Role/Relationship Status Dates Dr. Margo Tatum DO Primary Care Provider Active Start: December 06, 2024 End: December 06, 2024 Dr. Rell Loera MD Attending Provider Active Start: December 06, 2024 End: December 06, 2024 Dr. Rell Loera MD Referring Provider Active Start: December 06, 2024 End: December 06, 2024 Dr. Rell Loera MD Emergency Provider Active Start: December 06, 2024 End: December 06, 2024 Team Status: Inactive Member Role/Relationship Status Dates Dr. Margo Tatum DO Primary Care Provider Active Start: 2024 End: 2024 Dr. Margo Tatum DO Referring Provider Active St art: 2024 End: 2024 Dr. Herminio Magana DO Attending Provider Active S tart: 2024 End: 2024 Team Status: Inactive Member Role/Relationship Status Dates Dr. Margo Tatum DO Primary Care Provider Active Start: 2024 End: 2024 Dr. Herminio Magana DO Attending Provider Active S tart: 2024 End: 2024 Dr. Herminio Magana DO Referring Provider Active S tart: 2024 End: 2024 Team Status: Inactive Member Role/Relationship Status Dates Dr. Margo Tatum DO Primary Care Provider Active Start: December 17, 2024 End: December 17, 2024 Dr. Cr Ho MD Attending Provider Active S tart: December 17, 2024 End: December 17, 2024 Team Status: Inactive Member Role/Relationship Status Dates Dr. Margo Tatum DO Primary Care Provider Active Start: December 18, 2024 End: December 18, 2024 Dr. Herminio Magana DO Attending Provider Active S tart: December 18, 2024 End: December 18, 2024 Dr. Herminio Magana DO Referring Provider Active S tart: December 18, 2024 End: December 18, 2024 Team Status: Inactive Member Role/Relationship Status Dates Dr. Margo Tatum DO Primary Care Provider Active Start: December 27, 2024 End: December 27, 2024 Dr. Herminio Magana DO Attending Provider Active S tart: December 27, 2024 End: December 27, 2024 Dr. Herminio Magana DO Referring Provider Active S tart: December 27, 2024 End: December 27, 2024 Team Status: Active Member Role/Relationship Status Dates Dr. Margo Tatum DO Primary Care Provider Active Start: December 28, 2024 Dr. Herminio Magana , Attending Provider Active S tart: December 28, 2024 Dr. Herminio Magana , Referring Provider Active S tart: December 28, 2024 Dr. Herminio Magana , Other Provider Active Start : December 28, 2024 Team Status: Inactive Member Role/Relationship Status Dates Dr. Margo Tatum DO Primary Care Provider Active Start: January 11, 2025 End: January 11, 2025 Dr. Margo Tatum DO Referring Provider Active St art: January 11, 2025 End: January 11, 2025 Susan Urena NP-C Attending Provider Active Start: January 11, 2025 End: January 11, 2025 Team Status: Active Member Role/Relationship Status Dates Dr. Margo Tatum DO Primary Care Provider Active Start: January 11, 2025 Susan Urena NP-C Attending Provider Active Start: January 11, 2025 Susan Urena NP-C Referring Provider Active Start: January 11, 2025 Team Status: Inactive Member Role/Relationship Status Dates Dr. Margo Tatum DO Primary Care Provider Active Start: January 11, 2025 End: January 11, 2025 Dr. Tam Robins DO Emergency Provider Activ e Start: January 11, 2025 End: January 11, 2025 Team Status: Inactive Member Role/Relationship Status Dates Dr. Margo Tatum DO Primary Care Provider Active Start: January 11, 2025 End: January 11, 2025 Susan Urena NP-C Attending Provider Active Start: January 11, 2025 End: January 11, 2025 Susan Urena NP-C Referring Provider Active Start: January 11, 2025 End: January 11, 2025 Team Status: Inactive Member Role/Relationship Status Dates Dr. Margo Tatum DO Primary Care Provider Active Start: January 11, 2025 End: January 11, 2025 Dr. Tam Robins DO Attending Provider Activ e Start: January 11, 2025 End: January 11, 2025 Dr. Tam Robins DO Emergency Provider Activ e Start: January 11, 2025 End: January 11, 2025 Team Status: Inactive Member Role/Relationship Status Dates [...] 2024 End: November 07, 2024 Team Status: Inactive Member Role/Relationship Status Dates Dr. Margo Tatum DO Primary Care Provider Active Start: November 30, 2024 End: December 01, 2024 Dr. Allen Meraz DO Emergency Provider Active S tart: November 30, 2024 End: December 01, 2024 Dr. Suma Mathew MD Admit Provider Active Star t: November 30, 2024 End: December 01, 2024 Dr. Suma Mathew MD Other Provider Active Star t: November 30, 2024 End: December 01, 2024 Dr. Aidan Staples DO Attending Provider Active Start: November 30, 2024 End: December 01, 2024 Team Status: Active Member Role/Relationship Status Dates Dr. Margo Tatum DO Primary Care Provider Active Start: December 01, 2024 Dr. Estrellita Alarcon MD Attending Provider Active Start: December 01, 2024 Team Status: Active Member Role/Relationship Status Dates Dr. Margo Tatum DO Primary Care Provider Active Start: December 01, 2024 Dr. Allen Meraz DO Emergency Provider Active S tart: December 01, 2024 Dr. Suma Mathew MD Admit Provider Active Star t: December 01, 2024 Dr. Suma Mathew MD Other Provider Active Star t: December 01, 2024 Dr. Aidan Staples DO Attending Provider Active Start: December 01, 2024 Dr. Aidan Staples , Other Provider Active S tart: December 01, 2024 Team Status: Inactive Member Role/Relationship Status Dates Dr. Margo Tatum DO Primary Care Provider Active Start: December 04, 2024 Dr. Berenice Short MD Attending Provider Active Start: December 04, 2024 Team Status: Inactive Member Role/Relationship Status Dates Dr. Margo Tatum DO Primary Care Provider Active Start: December 06, 2024 End: December 06, 2024 Dr. Rell Loera MD Attending Provider Active Start: December 06, 2024 End: December 06, 2024 Dr. Rell Loera MD Referring Provider Active Start: December 06, 2024 End: December 06, 2024 Dr. Rell Loera MD Emergency Provider Active Start: December 06, 2024 End: December 06, 2024 Team Status: Inactive Member Role/Relationship Status Dates Dr. Margo Tatum DO Primary Care Provider Active Start: 2024 End: 2024 Dr. Margo Tatum DO Referring Provider Active St art: 2024 End: 2024 Dr. Herminio Magana DO Attending Provider Active S tart: 2024 End: 2024 Team Status: Inactive Member Role/Relationship Status Dates Dr. Margo Tatum DO Primary Care Provider Active Start: 2024 End: 2024 Dr. Herminio Magana DO Attending Provider Active S tart: 2024 End: 2024 Dr. Herminio Magana DO Referring Provider Active S tart: 2024 End: 2024 Team Status: Inactive Member Role/Relationship Status Dates Dr. Margo Tatum DO Primary Care Provider Active Start: December 17, 2024 End: December 17, 2024 Dr. Cr Ho MD Attending Provider Active S tart: December 17, 2024 End: December 17, 2024 Team Status: Inactive Member Role/Relationship Status Dates Dr. Margo Tatum DO Primary Care Provider Active Start: December 18, 2024 End: December 18, 2024 Dr. Herminio Magana DO Attending Provider Active S tart: December 18, 2024 End: December 18, 2024 Dr. Herminio Magana , Referring Provider Active S tart: December 18, 2024 End: December 18, 2024 Team Status: Inactive Member Role/Relationship Status Dates Dr. Margo Tatum DO Primary Care Provider Active Start: December 27, 2024 End: December 27, 2024 Dr. Herminio Magana , DO Attending Provider Active S tart: December 27, 2024 End: December 27, 2024 Dr. Herminio Magana , DO Referring Provider Active S tart: December 27, 2024 End: December 27, 2024 Team Status: Active Member Role/Relationship Status Dates Dr. Margo Tatum DO Primary Care Provider Active Start: December 28, 2024 Dr. Herminio Magana , Attending Provider Active S tart: December 28, 2024 Dr. Herminio Magana , Referring Provider Active S tart: December 28, 2024 Dr. Herminio Magana , DO Other Provider Active Start : December 28, 2024 Team Status: Inactive Member Role/Relationship Status Dates Dr. Margo Tatum DO Primary Care Provider Active Start: January 11, 2025 End: January 11, 2025 Dr. Margo Tatum DO Referring Provider Active St art: January 11, 2025 End: January 11, 2025 CARMEN Joy Attending Provider Active Start: January 11, 2025 End: January 11, 2025 Team Status: Inactive Member Role/Relationship Status Dates Dr. Margo Tatum DO Primary Care Provider Active Start: January 11, 2025 End: January 11, 2025 CARMEN Joy Attending Provider Active Start: January 11, 2025 End: January 11, 2025 CARMEN Joy Referring Provider Active Start: January 11, 2025 End: January 11, 2025 Team Status: Inactive Member Role/Relationship Status Dates Dr. Margo Tatum DO Primary Care Provider Active Start: January 11, 2025 End: January 11, 2025 Dr. Tam Robins DO Attending Provider Activ e Start: January 11, 2025 End: January 11, 2025 Dr. Tam Robins , DO Emergency Provider Activ e Start: January 11, 2025 End: January 11, 2025 Team Status: Inactive Member Role/Relationship Status Dates Dr. Margo Tatum DO Primary Care Provider Active Start: January 22, 2025 End: January 22, 2025 CARMEN Joy Attending Provider Active Start: January 22, 2025 End: January 22, 2025 Team Status: Active Member Role/Relationship Status Dates Dr. Margo Tatum DO Primary Care Provider Active Start: January 23, 2025 CARMEN Joy Attending Provider Active Start: January 23, 2025 CARMEN Joy Referring Provider Active Start: January 23, 2025 Team Status: Inactive Member Role/Relationship Status Dates Dr. Margo Tatum DO Primary Care Provider Active Start: January 29, 2025 End: January 29, 2025 Dr. Margo Tatum DO Referring Provider Active St art: January 29, 2025 End: January 29, 2025 Dr. Cr Ho MD Attending Provider Active S tart: January 29, 2025 End: January 29, 2025 Team Status: Inactive Member Role/Relationship Status Dates Dr. Margo Tatum DO Primary Care Provider Active Start: January 23, 2025 End: January 23, 2025 CARMEN Joy Attending Provider Active Start: January 23, 2025 End: January 23, 2025 CARMEN Joy Referring Provider Active Start: January 23, 2025 End: January 23, 2025 PRN Active and Recently Administ ered Medications [...] on Tue08/18/22 at 0806, Until Tue08/18/22 at 1949, Per treatment plan, Start the morning of procedure., Pre-op/Pre-Proc 0841 ($$New Bag$$ - Provider: Reena Hahn RN) Vancomycin HCl in NaCl (Vancocin) 1,500 mg 290 ml premade IVPB (COMPLETED) 1,500 mg, Intravenous, Administer over 1 Hours, SHIPPING PACKER TO PROCEDURE, 1 dose, Starting on Tue08/18/22 at 0000, Until Discontinued, Other, Preoperative antibiotic, Order should be timed for day of procedure. 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 Vancomycin is preferred agent [...] BE BASED ON THE PRIMARY CLINICAL RECORDS. [email or web address] provides no warranty or guarantee of the accuracy or completeness of information in this document.
== END | disposition home or self-care (01) ==
PROVIDERS: PCP Family Medicine; Referring Provider Nurse Practitioner Family; Visit Provider Nurse Practitioner Family
DX: G47.33 Obstructive sleep apnea (adult) (pediatric) (principal)
CPT/HCPCS: 95811

== ENCOUNTER → 2025-03-26 | Outpatient (CLI) | payer OTHER, SELFPAY ==
[2024-01-03 09:13] VITALS: BMI 35.5
== END | disposition home or self-care (01) ==
LOC: SL 10:57
PROVIDERS: PCP Family Medicine; Referring Provider Nurse Practitioner Family; Visit Provider Nurse Practitioner Family
DX: Z00.00 Encounter for general adult medical examination without abnormal findings (principal)

== ENCOUNTER 2025-05-21 15:34 | Emergency (ER) | payer OTHER, SELFPAY ==
[2024-01-03 09:13] VITALS: BMI 35.5
[2025-05-21 15:34] VITALS: BP 155/94; PULSE 80; RESP 18; TEMP 37.1; O2SAT 99; BMI 34.1
[2025-05-21 18:46] LABS: Mucous, Urine 0 SEEN /hpf (<or=2+)
[2025-05-21 18:48] LABS: Color, Urine Brown (Yellow); Glucose, Dipstick 100 mg/dl (Normal); Ketone-Dipstick 5 mg/dl (Negative); Leukocyte Esterase-Dipstick 500 /ul (Negative); Nitrite-Dipstick Negative (Negative); Occult Blood-Urine 250 /ul (Negative); Protein-Dipstick 100 mg/dl (Negative); Specific Gravity, Urine 1.025 (1.002-1.030)
[2025-05-21 18:54] LABS: Urine Bilirubin Dipstick 1 mg/dL (Negative)
[2025-05-21 19:26] LABS: Red Blood Cells-Urine 10-25 SEEN /hpf (0-5); Squamous Epithelial Cells - UA 10-25 SEEN /hpf (5-10)
[2025-05-21 19:32] LABS: Internal QC Validated? YES +Cl - CLEAR BKGD; Pregnancy, Urine Negative Negative
--- OUTSIDE RECORDS SUMMARY | 2025-05-21 21:46 | XMS RPT_ITS | CCD ---
Author Organization [facility] Care Team Providers Care Head Of Merchandise Buying Name Role Phone Dr. Margo Tatum Primary Care Provider [phone] Alek Jc Emergency Provider Dr. Gustavo [...] Attending Provider Dr. Margo Tatum Referring Provider [phone] Stacey HOPPER PA Rupali Rubio Attending Provider MD Carlos Saleem Emergency [...] Dr. Margo Tatum Primary Care Provider Dr. Alek Jc Emergency Provider Dr. Cr [...] Attending Provider Dr. Aidan Staples Referring Provider Rc, Dr. Aragon Referring Provider [phone] Rc, Dr. Aragon Primary Care Provider Rc, Dr. Aragon Primary Care Provider Rc, Dr. Aragon Referring Provider Jaz COFFMAN NP-Norris Rubio Attending Provider [phone] WARD Mallory Attending Provider Dr. Cr Ho Attending Provider [phone] Arun Marc Attending Provider [phone] CARMEN Mitchell NP Attending Provider Rc, Dr. Aragon Primary Care Provider Rc, Dr. Aragon Referring Provider Jaz COFFMAN NP-Norris Rubio Attending Provider [phone] WARD Mallory Attending Provider Vic, Dr. Hankins Attending Provider [phone] Arun Marc Attending Provider [phone] CARMEN Mitchell NP Attending Provider Dr. Margo Tatum Primary Care Provider Rc, Dr. Aragon Referring Provider [phone] CARMEN Tom Attending Provider Rc, Dr. Aragon Primary Care Provider Rc, Dr. Aragon Referring Provider [phone] Dr. Cr Ho Attending Provider [phone] Edward Hancock Attending Provider [phone] Rc, Dr. Aragon Primary Care Provider Rc, Dr. Aragon Referring Provider [phone] CARMEN Mitchell NP Attending Provider Dr. Margo Tatum Primary Care Provider 1([facility])[phone] Dr. Cr Ho Attending Provider 1([facility])-[phone] Arjun Ortez Emergency Provider 1([facility])[phone] Dr. Patel Nguyenit Provider 1([facility])[phone] Patel Nguyen Attending Provider 1([facility])[phone] Dr. Patel Nguyen Other Provider 1([facility])[phone] Suma Mathew Other Provider Dr. Gustavo Leslie Attending Provider 1([facility])[phone] Dr. Suma Mathew Attending Provider 1([facility])[phone] Roof AUTOMATIC CENTRIFUGAL STATION OPERATOR, Bryan Unavailable Margo Tatum DO Primary Care Provider 1([facility])[phone] Roof AUTOMATIC CENTRIFUGAL STATION OPERATOR, Bryan Unavailable Dr. Margo Tatum Primary Care Provider 1([facility])[phone] Dr. Margo Tatum Referring Provider 1([facility])[phone] CARMEN Tom Attending Provider 1([facility])[phone] Dr. Arjun Ortez Emergency Provider 1([facility])[phone] Dr. Patel Nguyenit Provider 1([facility])[phone] Patel Nguyen Attending Provider 1([facility])[phone] Dr. Patel Nguyen Other Provider 1([facility])[phone] Cr Ho Attending Provider 1([facility])-[phone] Patel Nguyen Referring Provider 1([facility])[phone] Dr. Suma Mathew Other Provider Dr. Gustavo Leslie Attending Provider 1([facility])[phone] Dr. Suma Mathew Attending Provider 1([facility])[phone] Jak Loaiza Attending Provider 1([facility])[phone] Dr. Víctor Alvarez Referring Provider 1([facility])[phone] Stephen BAD WORK GATHERER, CARMEN Whelan Attending Provider 1([facility])[phone] Dr. Margo Tatum Primary Care Provider 1([facility])[phone] Dr. Margo Tatum Referring Provider CARMEN Tom Attending Provider MALYS, MARGO Primary Care Unavailable NASSAL, RUPALI M Attending Unavailable LAUGHLIN, JYOTICTING Primary Care Unavailable MALYS, MARGO Primary Care [...] Attending Unavailable VITO, SERAFIN G Referring Unavailable Rc, Dr. Aragon Primary Care Provider 1([facility])[phone] Dr. Cr Ho Attending Provider 1([facility])[phone] Margo Tatum Primary Care Provider 1([facility])[phone] Dr. Margo Tatum Referring Provider 1([facility])[phone] CARMEN Tom Attending Provider Dr. Cr Ho Attending Provider 1([facility])[phone] Margo Tatum Primary Care Provider 1([facility])[phone] Dr. Cr Ho Attending Provider 1([facility])[phone] Margo Tatum Referring Provider 1([facility])[phone] CARMEN Tom Attending Provider 1([facility])[phone] Dr. Edward Hancock Attending Provider Dr. Margo Tatum Primary Care Provider Dr. Cr Ho Attending Provider [phone] Margo Tatum Referring Provider [phone] CARMEN Tom Attending Provider Dr. Edward Hancock Attending Provider [phone] Dr. Margo Tatum Primary Care Provider [phone] Dr. Cr Ho Attending Provider 1([facility])-[phone] Rell Loera Emergency Provider Dr. Perlita Gómez Admit Provider Dr. Perlita Gómez Other Provider Dr. Emiliano Campoverde Other Provider Dr. Aidan Staples Attending Provider Dr. Aidan Staples Other Provider Dr. Damaris Thibodeaux Attending Provider Dr. Damaris Thibodeaux Other Provider Dr. Terry Arzate Emergency Provider Dr. Navdeep Bourgeois Attending Provider Dr. Margo Tatum Primary Care Provider [phone] Cr Ho Attending Provider Dr. Margo [...] Other Provider Dr. Berenice Short Other Provider [phone] Jamie Manrique Attending Provider Dr. Jamie Manrique Other Provider Truman GEE, Mehnaz Primary Care Provider Dr. Margo Tatum DO Primary Care Provider [phone] Lyndsey MASON, Dr. Rivera Attending Provider Dr. Miguel Solorio DO Emergency Provider Dr. Cr Ho MD Attending Provider Dr. Margo Tatum DO Referring Provider Jean BAD WORK GATHERER-C, Mike Attending Provider Jean BAD WORK GATHERER-C, Mike Referring Provider Harper GEE, Carlos Referring Provider Harper GEE, Carlos Emergency Provider Ivette GEE, Dr. Francine Manjarrez Admit Provider Ivette GEE, Dr. Francine Manjarrez Attending Provider Ivette GEE, Dr. Francine Manjarrez Other Provider Dr. Damaris Thibodeaux DO Attending Provider Dr. Jamie Manrique DO Other Provider Dr. Jamie Manrique DO Attending Provider Dr. Damaris Thibodeaux DO Other Provider Harper GEE, Carlos Referring Provider Dr. Darline Solano MD Attending Provider Dr. Darline Solano MD Referring Provider Dr. Margo Tatum DO Primary Care Provider Jean BAD WORK GATHERER-C, Mike Attending Provider Vic GEE, Dr. Hankins Attending Provider Dr. Margo Tatum DO Referring Provider Dr. Arjun Ortez DO Emergency Provider Dr. Margo Tatum DO Primary Care Provider [phone] Jean BAD WORK GATHERER-C, Mike Attending Provider Jean BAD WORK GATHERER-C, Mike Referring Provider Dr. Arjun Ortez DO Attending Provider Truman GEE, [facility] Primary Care Provider Dr. Margo Tatum DO [...] Rc MASON, Dr. Aragon Referring Provider Jean BAD WORK GATHERER-C, Mike Attending Provider Jean BAD WORK GATHERER-C, Mike Referring Provider Xiomara GEE, Dr. Gregorio [...] Provider Bel MASON, Dr. Bermudez Other Provider Evaristo GEE, Dr. Zacarias Referring Provider Evaristo GEE, Dr. Zacarias Emergency Provider Chino MASON, Dr. Durham Attending Provider Evaristo GEE, Dr. Zacarias Attending Provider Chino MASON, Dr. Durham Referring Provider Rc MASON, Dr. Aragon Primary Care Provider Vic GEE, Dr. Hankins Attending Provider Deja GEE, Dr. Ng Attending Provider [phone] Chino MASON, Dr. Durham Other Provider Rc MASON, Dr. Aragon Primary Care Provider Jean COFFMAN-CMike Attending Provider Vic GEE, Dr. Hankins Attending Provider Rc MASON, Dr. Aragon Referring Provider [phone] Susan Coronel Attending Provider Susan Coronel Referring Provider Shimon MASON, Dr. Turcios Emergency Provider Dr. Berenice Short MD Attending Provider Shimon MASON, Dr. Turcios Attending Provider Rc MASON, Dr. Aragon Primary Care Provider Mike Grullon Attending Provider Truman GEE, Jyotiokjustino Primary Care Physician Rc MASON, Dr. Aragon Primary Care Physician Jean COFFMAN-CMike Attending Physician Kt MASON, Dr. Villa Emergency Department Physici an Quincy GEE, Dr. Moise Admitting Physician Quincy GEE, Dr. Moise Nurse Practitioner Bel MASON, Dr. Bermudez Attending Physician Dorian GEE, Dr. Haro Attending Physician Bel MASON, Dr. Bermudez Nurse Practitioner Deja GEE, Dr. Ng Attending Physician Evaristo GEE, Dr. Zacarias Attending Physician Evaristo GEE, Dr. Zacarias Emergency Department Phys ician Chino MASON, Dr. Durham Attending Physician [phone] Vic GEE, Dr. Hankins Attending Physician Chino MASON, Dr. Durham Nurse Practitioner Romel COFFMAN-CSusan Attending Physician [phone] Shimon MASON, Dr. Turcios Attending Physician Shimon MASON, Dr. Turcios Emergency Departmen t Physician Malys, Margo Primary Care Unavailable Susan Urena Referring Unavailable Susan Urena Attending Unavailable Susan Urena Attending Unavailable Susan Urena Referring Unavailable Malys, Margo Primary Care Unavailable Herminio Magana Attending Unavailable Malys, Margo Primary Care Unavailable Herminio Magana Referring Unavailable Malys, Margo Primary Care Unavailable Susan Urena Referring Unavailable Susan Urena Attending Unavailable Reodicmelida, Carlos Referring Unavailable Malys, Margo Primary Care Unavailable Damaris Thibodeaux Attending Unavailable Koram, Francine Josseline Admitting Unavailable Koram, Francine Josseline Consulting Unavailable Jamie Manrique Consulting Unavailable Malys, Margo Primary Care Unavailable Vic, Cr Attending Unavailable Malys, Margo Primary Care Unavailable Cr oH Attending Unavailable Susan Urena Attending Unavailable Malys, Margo Referring Unavailable Malys, Margo Primary Care Unavailable Herminio Magana Attending Unavailable Malys, Margo Primary Care Unavailable Herminio Magana Referring Unavailable Malys, Margo Primary Care Unavailable Susan Urena Attending Unavailable Malys, Margo Primary Care Unavailable Tam Robins Attending UnavailRell Agarwal Attending Unavailable Malys, Margo Primary Care Unavailable Rell Loera Referring Unavailable Malys, Margo Primary Care Unavailable Arjun Ortez Attending Unavailable Malys, Margo Primary Care Unavailable Cr Ho Attending Unavailable Malys, Margo Primary Care Unavailable VicCr gaytan Attending Unavailable Malys, Margo Primary Care Unavailable Malys, Margo Referring Unavailable VicCr gaytan Attending Unavailable Herminio Magana Attending Unavailable Malys, Margo Referring Unavailable Malys, Margo Primary Care Unavailable Malys, Margo Primary Care Unavailable Susan Urena Referring Unavailable Susan Urena Attending Unavailable Malys, Margo Primary Care Unavailable Mike Tom Attending Unavailable JeanMike Referring Unavailable Malys, Margo Primary Care Unavailable Darline Solano Attending Unavailable BasaliDarline Referring Unavailable Malys, Margo Primary Care Unavailable Malys, Margo Referring Unavailable Mike Tom Attending Unavailable Malys, Margo Primary Care Unavailable Mike Tom Attending Unavailable JeanMike Referring Unavailable Malys, Margo Primary Care Unavailable Miguel Solorio Attending Unavailable Malys, Margo Primary Care Unavailable Mike Tom Attending Unavailable Malys, Margo Referring Unavailable Malys, Margo Primary Care Unavailable Mike Tom Attending Unavailable Malys, Margo Referring Unavailable Malys, Margo Primary Care Unavailable VicCr gaytan Attending Unavailable Malys, Margo Primary Care Unavailable Stephen BAD WORK GATHERERBryan Attending Unavailable Malys, Margo Referring Unavailable Malys, Margo Primary Care Unavailable Bethany Jacobson Attending Unavailable Malys, Margo Referring Unavailable Malys, Magro Primary Care Unavailable Reodica, Carlos Referring Unavailable Damaris Thibodeaux Attending Unavailable Koram, Francine Josseline Consulting Unavailable Koram, Francine Josseline Admitting Unavailable Jamie Manrique Consulting Unavailable Damaris Thibodeaux Consulting Unavailable Jamie Manrique Attending Unavailable Herminio Magana Attending Unavailable BrownHerminio Consulting Unavailable Malys, Margo Primary Care Unavailable BrownHerminio Referring Unavailable Malys, Margo Primary Care Unavailable Mike Tom Attending Unavailable Malys, Margo Referring Unavailable Malys, Margo Primary Care Unavailable Estrellita Alarcon Attending Unavailable Malys, Margo Primary Care Unavailable Mathew, Suma Admitting Unavailable Mathew, Suma Attending Unavailable Mathew, Suma Consulting Unavailable ReodicaCarlos Referring Unavailable Malys, Margo Primary Care Unavailable Koram, Francine Josseline Consulting Unavailable Koram, Francine Josseline Admitting Unavailable Koram, Francine Josseline Attending Unavailable Terrekhaky, Aidan Attending Unavailable Tereletsky, Aidan Consulting Unavailable Malys, Margo Referring Unavailable Malys, Margo Primary Care Unavailable Mike Tom Attending Unavailable Malys, Margo Primary Care Unavailable Vic, Piasa Attending Unavailable Malys, Margo Primary Care Unavailable Vic, Cr Attending Unavailable Brown, Herminio Referring Unavailable Brown, Herminio Attending Unavailable Malys, Margo Primary Care Unavailable Malys, Margo Primary Care Unavailable Mathew, Suma Admitting Unavailable Mathew, Suma Consulting Unavailable Bel, Aidan Attending Unavailable Malys , Dr. Aragon Primary Care Physician Dr. Margo Tatum DO Referring Provider [phone] Allergies Allergy Classification Reported Allergen(s) Allergy Type Date of Onset Reaction(s) Facility (20 sources) Amoxicillin; Translations: [amoxicillin trihydrate] Drug Allergy 07-17-2021 [facility] (20 sources) potassium clavulanate; Translations: [potassium clavulanate] Propensity to adverse reactions 07-17-2021 [facility] (2 sources) Amoxicillin / Clavulanate Drug Allergy 08-18-2022 [facility] Medications Current Medications Medication Drug Class(es) [...] 17, 2018 12:00am March 19, 2018 12:09am [id number] 200 actuat albuterol 0.09 mg/actuat metered dose inhaler (15 sources) beta2-Adrenergic Agonist Start: 12-01-2024 benzocaine 15 mg / menthol 3.6 mg oral lozenge (5 sources) Standardized Chemical Allergen Start: 09-14-2021 Benzocaine-Menthol (Cepacol Sore Throat (Azam-Men)) 15-3.6 mg Lozenge Active 1 LOZENGE MUCOUS MEM EVERY 2 HOURS NEEDED 0 September 14, 2021 11:50am Blood-Glucose Meter,Continuous (Dexcom G7 Seo Expert) misc (5 sources) Start: 10-10-2023 Blood-Glucose Meter,Continuous (Dexcom G7 Seo Expert) misc Active 0 .Route 1 October 10, [...] 12:00am April 04, 2024 10:17am As directed Blood-Glucose,Seo Expert,Cont (Dexcom G7 Seo Expert) misc (3 sources) Start: 10-10-2023 Blood-Glucose,Seo Expert,Cont (Dexcom G7 Seo Expert) misc Active 0 .Route 1 October 10, 2023 12:00am As directed Budesonide-Formoterol (15 sources) Corticoste roid, beta2-Adre nergic Agonist Start: [...] End: 07-11-2020 hydroCHLOROthiazide 25 mg oral tablet (3 sources) Thiazide Diuretic Start: 01-29-2025 Insulin Glargine (Lantus Solostar U-100 Insulin) 100 unit/mL (3 mL) insulin pen (1 source) Start: 11-09-2021 Insulin Glargi ne (Lantus Solostar U-100 Insulin) 100 unit/mL (3 mL) insulin pen Active 40 UNIT SC DAILY November 09, 2021 8:56am Insulin Glargine-Yfgn (2 sources) Start: 09-11-2024 Insulin Glargine-Yfgn 100 unit/mL [...] 12-13-2023 Start: 12-13-2023 take 1 capsule by [facility] at bedtime as needed Melatonin 10 [...] mouth at bedtime as needed. 0 Active methIMAzole 10 mg oral tablet (20 sources) Thyroid Hormone Synthesis Inhibitor Start: 05-06-2022 End: 03-13-2025 methylPREDNISolone 4 mg oral tablet (1 source) [...] needed. 56 Tab 0 01/10/2012 Active sennosides, group home 8.6 mg oral tablet (2 sources) Start: 01-10-2012 take 1 tablet by mouth once daily senna 8.6 MG PO TABS take 1 Tab by mouth daily. 40 Tab 0 01/10/2012 Active tiZANidine 4 mg oral tablet (20 sources) Central alpha-2 Adrenergic Agonist Start: 08-06-2022 Start: 06-12-2020 End: 05-18-2022 (20 sources) Start: 03-26-2025 Start: 09-17-2024 Start: 09-11-2024 Start: 04-04-2024 End: [...] Discontinued 500 mg PO EVERY 12 HOURS 03 10May 08, 2022 1:00am May 18, 2022 2:55pm [...] Glucose Scanning Reade r (Freestyle Sanam [address]) misc (20 sources) Start: 08-11-2023 End: 10-10-2023 Flash Glucose Scanning Reade r (Freestyle Sanam [address]) misc Discontinued 0 .Route 1 August 11, 2023 1:07pm October 10, 2023 1:33pm As directed Start: 08-11-[address] (Freestyle [address]) misc Active 0 .Route 1 August 11, 2023 1:07pm As directed Start: 06-09-2022 End: 08-11-2023 Flash Glucose Scanning Reade r (Freestyle [address]) misc Discontinued 0 .Route 1 June 09, 2022 1:00am August 11, 2023 1:07pm As directed Start: 06-09-[address] (Freestyle Sanam [address]) misc Active 0 .Route 1 June 09, 2022 1:00am As directed Start: 06-09-[address] (Freestyle Sanam [address]) misc Active 0 .Route 1 June 09, [...] insulin pen Discontinued 40 U SC DAILY 36 October 30th, 2024 10:14am September 11, 2024 4:02pm Start: [...] 24, 2022 12:30pm Start: 06-13-2020 End: 03-31-2021 naloxegol 25 mg oral tablet (20 sources) [...] (ROXICODONE) tablet 5 mg polyethylene glycol 3350 [id number] mg powder for oral solution (1 source) [...] Active 1 {tbl} PO TWICE A DAY December 13, 2023 3:48pm Start: 12-13-2023 End: [...] tion 500 mL spironolactone 50 mg oral ta blet (20 sources) Aldosterone Antagonist Start: 03-08-2023 End: 01-29-2025 Start: 03-08-2023 End: 03-20-2024 Start: 09-14-2022 End: [...] Chest pain; Translations: [Chest pain, unspecified] Onset: 5 Episodic Nutritional deficiencies (20 sources) Vitamin D deficiency; Translations: [Vitamin D deficiency, unspecified] 11-07-2024 Chronic Other aftercare (20 sources) Long-term current use of anticoagulant; Translations: [residential (current) use of anticoagulants] 09-10-2022 Episodic Other aftercare (4 sources) Drug therapy finding; Translations: [ocean transportation intermediary (current) use of anticoagulants] 08-26-2023 Episodic Other aftercare (7 sources) residential (current) use of anticoagulants; Translations: [Long-term (current) use of anticoagulants] 08-26-2023 Episodic Other aftercare (2 sources) Patient encounter status; Translations: [ocean transportation intermediary (current) use of antithrombotics/antipl atelets] 09-06-2023 Episodic Other aftercare (2 sources) residential (current) use of antithrombotics/antipl atelets; Translations: [Long-term (current) use of antiplatelet/antithrom botic] 09-06-2023 Episodic Other aftercare (20 sources) Long-term current use of drug therapy; Translations: [residential (current) use of antithrombotics/antipl atelets] 09-18-2023 Episodic Other aftercare (2 sources) ocean transportation intermediary (current) use of insulin; Translations: [ocean transportation intermediary (current) use of insulin] Onset: Episodic Other [...] arm; Translations: [Pain in left arm] Onset: Episodic Other connective tissue disease (2 sources) Swelling of left upper limb; Translations: [Other specified soft tissue disorders] 09-14-2022 Episodic Other connective tissue disease (2 sources) Pain of bilateral hands; Translations: [Pain in right hand] 05-16-2022 Episodic Other ear and sense organ disorders [...] [Hypoxemia] 09-09-2024 Episodic Other lower respiratory disease (14 sources) Cough; Translations: [Acute cough] 12-06-2024 Episodic [...] (19 sources) Cardiomyopathy; Translations: [Other cardiomyopathies] Onset: 3 Chronic Phlebitis; thrombophlebitis and thromboembolism (20 sources) [...] (adult) (pediatric)] 2024 Chronic Residual codes; unclassified (1 source) Obstructive sleep apnea (adult) (pediatric); Translations: [Obstructive sleep apnea (adult) (pediatric)] Onset: Chronic Residual codes; unclassified (20 sources) History [...] dependence, uncomplicated; Translations: [Opioid dependence, uncomplicated] Onset: Chronic Superficial injury; contusion (20 sources) Contusion [...] Onset: 05-19-2021 Episodic Other lower respiratory disease (1 source) Hypoxemia; Translations: [Hypoxemia] Onset: 09-11-2024 Episodic Results Test Name Value Interpretation Reference Range Facility Cardiology Visit Reporton Cardiology Visit Report Normal [facility] Chest without Contraston Chest without Contrast Normal [facility] 12 Lead EKGon 01-11-2025 12 Lead EKG Normal [facility] Absolute lymphocyte countOrd ered By: Margo Morris on 01-11-2025 Lymphocytes Auto (Unsp spec) [#/Vol] 2.10 10*3/uL 0.83-4.51 [facility] Anion gap in Serum or Plasma Ordered By: Margo Morris on 01-11-2025 Anion gap [Moles/Vol] 13 mmol/L 5-15 [facility] Automated lymphocyte count a s percentage of total leukocytesOrdered By: Margo Morris on 01-11-2025 Lymphocytes/100 WBC Auto (Unsp spec) 39.7 % 19-41 [facility] BUN/creatinine ratioOrdered By: Margo Morris on 01-11-2025 Urea nitrogen/Creatinine [Mass ratio] 21.8 mg/mg High 10-20 [facility] Basophil percentageOrdered B y: Margo Morris on 01-11-2025 Basophils/100 WBC (Bld) 0.2 % 0-1 [facility] Bilirubin, totalOrdered By: Margo Morris on 01-11-2025 Bilirubin [Mass/Vol] 0.70 mg/dL 0.00-1.30 [facility] CBC W/Diff, Automatedon Absolute Lymph 2.10 X10 3/uL Normal 0.83-4.51 [facility] Comment on above: Performed By: #### L 100.0100, L501.2450, L501.4021, L500.4050 ####[facility] [address] [place], [place], [id number] Absolute Neut 2.8 X10 3/uL Normal 2.0-7.7 [facility] Comment on above: Performed By: #### L 100.0100, L501.2450, L501.4021, L500.4050 ####[facility] [address] [place], [address] Basophils/100 WBC (Bld) 0.2 % Normal 0-1 [facility] Comment on above: Performed By: #### L 100.0100, L501.2450, L501.4021, L500.4050 ####[facility] [address] [place], [address] Eosinophils/100 WBC (Bld) 0.9 % Normal 0-5 [facility] Comment on above: Performed By: #### L 100.0100, L501.2450, L501.4021, L500.4050 ####[facility] [address] [place], [address] Erythrocyte distribution width (RBC) [Ratio] 13.6 % Normal 11.6-14.6 [facility] Comment on above: Performed By: #### L 100.0100, L501.2450, L501.4021, L500.4050 ####[facility] [address] [place], [address] Hematocrit (Bld) [Volume fraction] 39.6 % Normal 37-47 [facility] Comment on above: Performed By: #### L 100.0100, L501.2450, L501.4021, L500.4050 ####[facility] [address] [place], [address] Hemoglobin (Bld) [Mass/Vol] 13.4 g/dL Normal 12.0-15.0 [facility] Comment on above: Performed By: #### L 100.0100, L501.2450, L501.4021, L500.4050 ####[facility] [address] [place], [address] IG% 0.200 Normal 0.0-0.9 [facility] Comment on above: Result Comment: IG% - Immature Granulocytes (promyelocytes, myelocytes andmetamyelocytes) > 1% indicates that a LEFT SHIFT is Present. Performed By: #### L 100.0100, L501.2450, L501.4021, L500.4050 ####[facility] [address] [place], [address] Lymphocytes/100 WBC (Bld) 39.7 % Normal 19-41 [facility] Comment on above: Performed By: #### L 100.0100, L501.2450, L501.4021, L500.4050 ####[facility] [address] [place], [address] MCH (RBC) [Entitic mass] 30.4 pg Normal 27.0-32.0 [facility] [facility] Comment on above: Performed By: #### L 100.0100, L501.2450, L501.4021, L500.4050 ####[facility] [address] [place], [address] MCHC (RBC) [Mass/Vol] 33.8 g/dL Normal 32-36 [facility] Comment on above: Performed By: #### L 100.0100, L501.2450, L501.4021, L500.4050 ####[facility] [address] [place], [address] MCV (RBC) [Entitic vol] 89.8 fL Normal 81-99 [facility] Comment on above: Performed By: #### L 100.0100, L501.2450, L501.4021, L500.4050 ####[facility] [address] [place], [address] Monocytes/100 WBC (Bld) 6.2 % Normal 0-10 [facility] Comment on above: Performed By: #### L 100.0100, L501.2450, L501.4021, L500.4050 ####[facility] [address] [place], [address] Neutrophils/100 WBC (Bld) 52.8 % Normal 47-70 [facility] Comment on above: Performed By: #### L 100.0100, L501.2450, L501.4021, L500.4050 ####[facility] [address] [place], [address] Nucleated RBC (Bld) [#/Vol] 0 10*3/uL Normal 0-5 [facility] Comment on above: Performed By: #### L 100.0100, L501.2450, L501.4021, L500.4050 ####[facility] [address] [place], [address] Platelet mean volume (Bld) [Entitic vol] 10.9 fL Normal 6.2-12.0 [facility] Comment on above: Performed By: #### L 100.0100, L501.2450, L501.4021, L500.4050 ####[facility] [address] [place], [address] Platelets (Bld) [#/Vol] 176 10*3/uL Normal 150-450 [facility] Comment on above: Performed By: #### L 100.0100, L501.2450, L501.4021, L500.4050 ####[facility] [address] [place], [address] RBC (Bld) [#/Vol] 4.41 10*6/uL Normal 4.2-5.[address] [facility] Comment on above: Performed By: #### L 100.0100, L501.2450, L501.4021, L500.4050 ####[facility] [address] [place], [address] RDW SD 44.3 fl High 35.1-43.9 [facility] Comment on above: Performed By: #### L 100.0100, L501.2450, L501.4021, L500.4050 ####[facility] [address] [place], [address] WBC (Bld) [#/Vol] 5.3 10*3/uL Normal 4.4-11.0 [facility] Comment on above: Performed By: #### L 100.0100, L501.2450, L501.4021, L500.4050 ####[facility] [address] [place], [address] CTA Chest W/WO Contraston CTA Chest W/WO Contrast Normal [facility] Carbon dioxide, total [Moles /volume] in Central venous bloodOrdered By: Margo Morris on 01-11-2025 CO2 [Moles/Vol] 22.6 mmol/L 21.0-32.0 [facility] Chest PA and Lateralon 01-11 Chest PA and Lateral Normal [facility] Chloride assayOrdered By: Annabella Morris on 01-11-2025 Chloride [Moles/Vol] 98 mmol/L 98-108 [facility] Comprehensive Metabolic Prof ilon 01-11-2025 Albumin [Mass/Vol] 4.2 g/dL Normal 3.5-5.0 [facility] Comment on above: Performed By: #### L 100.0100, L501.2450, L501.4021, L500.4050 ####[facility] [address] [place], [address] Albumin/Globulin [Mass ratio] 1.3 {ratio} Normal 0.9-2.4 [facility] Comment on above: Performed By: #### L 100.0100, L501.2450, L501.4021, L500.4050 ####[facility] [address] [place], [address] ALK PHOS 110 U/L High 35-104 [facility] Comment on above: Performed By: #### L 100.0100, L501.2450, L501.4021, L500.4050 ####[facility] [address] [place], [address] ALT [Catalytic activity/Vol] 20 U/L Normal <=34 [facility] Comment on above: Performed By: #### L 100.0100, L501.2450, L501.4021, L500.4050 ####[facility] [address] [place], [address] AST [Catalytic activity/Vol] 19 U/L Normal <=31 [facility] Comment on above: Performed By: #### L 100.0100, L501.2450, L501.4021, L500.4050 ####[facility] [address] [place], [address] Bilirubin [Mass/Vol] 0.70 mg/dL Normal 0.00-1.30 [facility] Comment on above: Performed By: #### L 100.0100, L501.2450, L501.4021, L500.4050 ####[facility] [address] [place], [address] BUN/CRE 21.8 RATIO High 10-20 [facility] Comment on above: Performed By: #### L 100.0100, L501.2450, L501.4021, L500.4050 ####[facility] [address] [place], [address] Calcium [Mass/Vol] 9.6 mg/dL Normal 7.6-11.0 [facility] Comment on above: Performed By: #### L 100.0100, L501.2450, L501.4021, L500.4050 ####[facility] [address] [place], [address] Chloride [Moles/Vol] 98 mmol/L Normal 98-108 [facility] Comment on above: Performed By: #### L 100.0100, L501.2450, L501.4021, L500.4050 ####[facility] [address] [place], [address] CO2 [Moles/Vol] 22.6 mmol/L Normal 21.0-32.0 [facility] Comment on above: Performed By: #### L 100.0100, L501.2450, L501.4021, L500.4050 ####[facility] [address] [place], [address] Creatinine [Mass/Vol] 0.94 mg/dL Normal 0.70-1.20 [facility] Comment on above: Performed By: #### L 100.0100, L501.2450, L501.4021, L500.4050 ####[facility] [address] [place], [address] ECRCL 76.58 ml/min Normal 50-250 [facility] Comment on above: Performed By: #### L 100.0100, L501.2450, L501.4021, L500.4050 ####[facility] [address] [place], [address] GAP 13 Normal 5-15 [facility] Comment on above: Performed By: #### L 100.0100, L501.2450, L501.4021, L500.4050 ####[facility] [address] [place], [address] GFR/1.73 sq M.predicted among non-blacks MDRD (S/P/Bld) [Vol rate/Area] 71 mL/min/{1.73_m2} Normal >60 [facility] Comment on above: Result Comment: mL/m in/1.73m2 CKD-EPI Creatinine Equation (2020) Performed By: #### L 100.0100, L501.2450, L501.4021, L500.4050 ####[facility] [address] [place], [address] Globulin (S) [Mass/Vol] 3.3 g/dL Normal 2.2-4.2 [facility] Comment on above: Performed By: #### L 100.0100, L501.2450, L501.4021, L500.4050 ####[facility] [address] [place], [address] Glucose [Mass/Vol] 370 mg/dL High 70-99 [facility] Comment on above: Performed By: #### L 100.0100, L501.2450, L501.4021, L500.4050 ####[facility] [address] [place], [address] Potassium [Moles/Vol] 3.6 mmol/L Normal 3.3-5.1 [facility] Comment on above: Performed By: #### L 100.0100, L501.2450, L501.4021, L500.4050 ####[facility] [address] [place], [address] Sodium [Moles/Vol] 134 mmol/L Normal 133-145 [facility] Comment on above: Performed By: #### L 100.0100, L501.2450, L501.4021, L500.4050 ####[facility] [address] [place], [address] T PROT 7.4 g/dL Normal 5.9-8.4 [facility] Comment on above: Performed By: #### L 100.0100, L501.2450, L501.4021, L500.4050 ####[facility] [address] [place], [address] Urea nitrogen [Mass/Vol] 21 mg/dL High 4-19 [facility] Comment on above: Performed By: #### L 100.0100, L501.2450, L501.4021, L500.4050 ####[facility] [address] [place], [address] Emergency Department Summary on 01-11-2025 Emergency Department Summary Normal [facility] Eosinophil percentageOrdered By: Margo Morris on 01-11-2025 Eosinophils/100 WBC (Bld) 0.9 % 0-5 [facility] Erythrocyte distribution wid th ratioOrdered By: Margo Morris on 01-11-2025 Erythrocyte distribution width (RBC) [Ratio] 13.6 % 11.6-14.6 [facility] Erythrocyte distribution wid th standard deviationOrdered By: Margo Morris on 01-11-2025 Erythrocyte distribution width (RBC) [Ratio] 44.3 fl High 35.1-43.9 [facility] Glomerular filtration rate ( GFR) estimation/1.73 sq m using serum, plasma, or whole bOrdered By: Margo Morris on 01-11-2025 GFR/1.73 sq M.predicted among non-blacks MDRD (S/P/Bld) [Vol rate/Area] 71 mL/min/{1.73_m2} >60 [facility] Hematocrit Auto (Bld) [Volum e fraction]Ordered By: Margo Morris on 01-11-2025 Hematocrit (Bld) [Volume fraction] 39.6 % 37-47 [facility] Hemoglobin measurementOrdere d By: Margo Morris on 01-11-2025 Hemoglobin (Bld) [Mass/Vol] 13.4 g/dL 12.0-15.0 [facility] Immature granulocytes/100 WB C Auto (Bld)Ordered By: Margo Morris on 01-11-2025 Immature granulocytes/100 WBC (Bld) 0.200 % 0.0-0.9 [facility] L501.4021on 01-11-2025 Trop T High Sen 7 ng/L Normal <=14 [facility] Comment on above: Performed By: #### L 100.0100, L501.2450, L501.4021, L500.4050 ####[facility] [address] [place], [address] Lipaseon 01-11-2025 Lipase [Catalytic activity/Vol] 39 U/L Normal 13-75 [facility] Comment on above: Result Comment: Dipti villalba note:LIPASE revised reference range effective 22.New Lipase methodology. Expected to produce lower valuesthan the previous assay method.NEW Reference Range: 13 - 75 U/L Performed By: #### L 100.0100, L501.2450, L501.4021, L500.4050 ####[facility] [address] [place], [address] MCV (mean corpuscular volume ) determinationOrdered By: Margo Morris on 01-11-2025 MCV (RBC) [Entitic vol] 89.8 fL 81-99 [facility] Mean corpuscular hemoglobin (MCH) determinationOrdered By: Margo Morris on 01-11-2025 MCH (RBC) [Entitic mass] 30.4 pg 27.0-32.0 [facility] Monocyte percentageOrdered B y: Margo Morris on 01-11-2025 Monocytes/100 WBC (Bld) 6.2 % 0-10 [facility] Natriuretic peptide.B prohor tiffanie N-Terminal [Mass/volume] in Serum or PlasmaOrdered By: AUGUSTUS Urena on 01-11-2025 Natriuretic peptide.B prohormone N-Terminal [Mass/Vol] 655 pg/mL <900 [facility] Neutrophil percentageOrdered By: Margo Morris on 01-11-2025 Neutrophils/100 WBC (Bld) 52.8 % 47-70 [facility] No Panel InformationOrdered By: Margo Morris on 01-11-2025 19 U/L <32 [facility] Platelet countOrdered By: Annabella Morris on 01-11-2025 Platelets (Bld) [#/Vol] 176 10*3/uL 150-450 [facility] Potassium measurement (mass/ volume)Ordered By: Margo Morris on 01-11-2025 Potassium (Unsp spec) [Mass/Vol] 3.6 mmol/L 3.3-5.1 [facility] Pro- Brain NATRIURETIC PEPTI Maddison 01-11-2025 Natriuretic peptide B (Bld) [Mass/Vol] 655 pg/mL Normal <=900 [facility] Comment on above: Order Comment: PT RE FUSED LABS FOR JEAN Result Comment: Hear t Failure Unlikely: < 300 pg/mLHeart Failure Likely< 50 Years: > 450 pg/mL50-75 Years: > 900 pg/mL>75 Years: > 1800 pg/mL Performed By: #### L 503.7505 ####[facility] [address] [place], [address] Pulmonary Visit Reporton Pulmonary Visit Report Normal [facility] RBC Auto (Bld) [#/Vol]Ordere d By: Margo Morris on 01-11-2025 RBC (Bld) [#/Vol] 4.41 10*6/uL 4.2-5.[address] [facility] Serum creatinine measurement (mass/volume)Ordered By: Margo Morris on 01-11-2025 Creatinine [Mass/Vol] 0.94 mg/dL 0.70-1.20 [facility] Serum globulin measurementOr dered By: Margo Morris on 01-11-2025 Globulin (S) [Mass/Vol] 3.3 g/dL 2.2-4.2 [facility] Serum glucose measurement (m ass/volume)Ordered By: Margo Morris on 01-11-2025 Glucose [Mass/Vol] 370 mg/dL High 70-99 [facility] Serum or plasma alanine jarquin otransferase (ALT) measurementOrdered By: Margo Morris on 01-11-2025 ALT [Catalytic activity/Vol] 20 U/L <35 [facility] Serum or plasma albumin oliver urement (mass/volume)Ordered By: Margo Morris on 01-11-2025 Albumin [Mass/Vol] 4.2 g/dL 3.5-5.0 [facility] Serum or plasma albumin/glob ulin mass ratioOrdered By: Margo Morris on 01-11-2025 Albumin/Globulin [Mass ratio] 1.3 {ratio} 0.9-2.4 [facility] Serum or plasma alkaline richard sphatase measurementOrdered By: Margo Morris on 01-11-2025 ALP [Catalytic activity/Vol] 110 U/L High 35-104 [facility] Serum or plasma calcium oliver urement (mass/volume)Ordered By: Margo Morris on 01-11-2025 Calcium [Mass/Vol] 9.6 mg/dL 7.6-11.0 [facility] Serum or plasma urea nitroge n measurement (mass/volume)Ordered By: Margo Morris on 01-11-2025 Urea nitrogen [Mass/Vol] 21 mg/dL High 4-19 [facility] Sodium levelOrdered By: Margo Morris on 01-11-2025 Sodium [Moles/Vol] 134 mmol/L 133-145 [facility] Total proteinOrdered By: Nicole Morris on 01-11-2025 Protein [Mass/Vol] 7.4 g/dL 5.9-8.4 [facility] Troponin T HS 2 HRon 025 Trop T High Sen 7 ng/L Normal <=14 [facility] Comment on above: Performed By: #### L 499.0042 ####[facility] [address] [place], [place], [address] Troponin T HS 4 HRon 025 Trop T High Sen Normal <=14 [facility] Comment on above: Result Comment: Heidy healy via OM: Ordered Performed By: #### L 499.0043 ####[facility] [address] [place], [place], [address](653) Troponin T.cardiac [Mass/vol ume] in Serum or Plasma by High sensitivity methodOrdered By: Margo Morris on 01-11-2025 Troponin T.cardiac High sensitivity method [Mass/Vol] 7 ng/L <14 [facility] Troponin T.cardiac High sensitivity method [Mass/Vol] 7 ng/L <14 [facility] White blood cell (WBC) count Ordered By: Margo Morris on 01-11-2025 WBC (Bld) [#/Vol] 5.3 10*3/uL 4.4-11.0 [facility] 6 Minute Walk Teston 12-28- 025 6 Minute Walk Test Normal [facility] L503.7505on 2024 Natriuretic peptide B (Bld) [Mass/Vol] 1648 pg/mL High <=900 [facility] Comment on above: Result Comment: Hear t Failure Unlikely: < 300 pg/mLHeart Failure Likely< 50 Years: > 450 pg/mL50-75 Years: > 900 pg/mL>75 Years: > 1800 pg/mL Performed By: #### L 503.7505 ####[facility] [address] [place], [address] Natriuretic peptide.B prohor tiffanie N-Terminal [Mass/volume] in Serum or PlasmaOrdered By: Herminio Magana on 2024 Natriuretic peptide.B prohormone N-Terminal [Mass/Vol] 1648 pg/mL High <900 [facility] Pulmonary Visit Reporton Pulmonary Visit Report Normal [facility] 12 Lead EKGon 12-06-2024 12 Lead EKG Normal [facility] Absolute lymphocyte countOrd ered By: Rell Loera on 12-06-2024 Lymphocytes Auto (Unsp spec) [#/Vol] 2.30 10*3/uL 0.83-4.51 [facility] Anion gap in Serum or Plasma Ordered By: Rell Loera on 12-06-2024 Anion gap [Moles/Vol] 12 mmol/L 5-15 [facility] Automated lymphocyte count a s percentage of total leukocytesOrdered By: Rell Loera on 12-06-2024 Lymphocytes/100 WBC Auto (Unsp spec) 22.5 % 19-41 [facility] BUN/creatinine ratioOrdered By: Rell Loera on 12-06-2024 Urea nitrogen/Creatinine [Mass ratio] 38.3 mg/mg High 10-20 [facility] Basic Metabolic Profile (BMP )on 12-06-2024 BUN/CRE 38.3 RATIO High 10-20 [facility] Comment on above: Performed By: #### L 500.2500, L100.0100 ####[facility] [address] [place], [address] Calcium [Mass/Vol] 8.8 mg/dL Normal 7.6-11.0 [facility] Comment on above: Performed By: #### L 500.2500, L100.0100 ####[facility] [address] [place], [address] Chloride [Moles/Vol] 100 mmol/L Normal 98-108 [facility] Comment on above: Performed By: #### L 500.2500, L100.0100 ####[facility] [address] [place], [address] CO2 [Moles/Vol] 25.1 mmol/L Normal 21.0-32.0 [facility] Comment on above: Performed By: #### L 500.2500, L100.0100 ####[facility] [address] [place], [address] Creatinine [Mass/Vol] 0.84 mg/dL Normal 0.70-1.20 [facility] Comment on above: Performed By: #### L 500.2500, L100.0100 ####[facility] [address] [place], [address] ECRCL 87.34 ml/min Normal 50-250 [facility] Comment on above: Performed By: #### L 500.2500, L100.0100 ####[facility] [address] [place], [address] GAP 12 Normal 5-15 [facility] Comment on above: Performed By: #### L 500.2500, L100.0100 ####[facility] [address] [place], [address] GFR/1.73 sq M.predicted among non-blacks MDRD (S/P/Bld) [Vol rate/Area] 83 mL/min/{1.73_m2} Normal >60 [facility] Comment on above: Result Comment: mL/m in/1.73m2 CKD-EPI Creatinine Equation (2020) Performed By: #### L 500.2500, L100.0100 ####[facility] [address] [place], [address] Glucose [Mass/Vol] 224 mg/dL High 70-99 [facility] Comment on above: Performed By: #### L 500.2500, L100.0100 ####[facility] [address] [place], [address] Potassium [Moles/Vol] 3.9 mmol/L Normal 3.3-5.1 [facility] Comment on above: Result Comment: Hemo lysis present, Results??could be affected.?? Performed By: #### L 500.2500, L100.0100 ####[facility] [address] [place], [address] Sodium [Moles/Vol] 137 mmol/L Normal 133-145 [facility] Comment on above: Performed By: #### L 500.2500, L100.0100 ####[facility] [address] [place], [address] Urea nitrogen [Mass/Vol] 32 mg/dL High 4-19 [facility] Comment on above: Performed By: #### L 500.2500, L100.0100 ####[facility] [address] [place], [address] Basophil percentageOrdered B y: Rell Loera on 12-06-2024 Basophils/100 WBC (Bld) 0.2 % 0-1 [facility] CBC W/Diff, Automatedon Absolute Lymph 2.30 X10 3/uL Normal 0.83-4.51 [facility] Comment on above: Performed By: #### L 500.2500, L100.0100 ####[facility] [address] [place], [address] Absolute Neut 7.2 X10 3/uL Normal 2.0-7.7 [facility] Comment on above: Performed By: #### L 500.2500, L100.0100 ####[facility] [address] [place], [address] Basophils/100 WBC (Bld) 0.2 % Normal 0-1 [facility] Comment on above: Performed By: #### L 500.2500, L100.0100 ####[facility] [address] [place], [address] Eosinophils/100 WBC (Bld) 0.8 % Normal 0-5 [facility] Comment on above: Performed By: #### L 500.2500, L100.0100 ####[facility] [address] [place], [address] Erythrocyte distribution width (RBC) [Ratio] 14.1 % Normal 11.6-14.6 [facility] Comment on above: Performed By: #### L 500.2500, L100.0100 ####[facility] [address] [place], [address] Hematocrit (Bld) [Volume fraction] 40.8 % Normal 37-47 [facility] Comment on above: Performed By: #### L 500.2500, L100.0100 ####[facility] [address] [place], [address] Hemoglobin (Bld) [Mass/Vol] 13.3 g/dL Normal 12.0-15.0 [facility] Comment on above: Performed By: #### L 500.2500, L100.0100 ####[facility] [address] [place], [address] IG% 0.700 Normal 0.0-0.9 [facility] Comment on above: Result Comment: IG% - Immature Granulocytes (promyelocytes, myelocytes andmetamyelocytes) > 1% indicates that a LEFT SHIFT is Present. Performed By: #### L 500.2500, L100.0100 ####[facility] [address] [place], [address] Lymphocytes/100 WBC (Bld) 22.5 % Normal 19-41 [facility] Comment on above: Performed By: #### L 500.2500, L100.0100 ####[facility] [address] [place], [address] MCH (RBC) [Entitic mass] 30.5 pg Normal 27.0-32.0 [facility] Comment on above: Performed By: #### L 500.2500, L100.0100 ####[facility] [address] [place], [address] MCHC (RBC) [Mass/Vol] 32.6 g/dL Normal 32-36 [facility] Comment on above: Performed By: #### L 500.2500, L100.0100 ####[facility] [address] [place], [address] MCV (RBC) [Entitic vol] 93.6 fL Normal 81-99 [facility] [facility] Comment on above: Performed By: #### L 500.2500, L100.0100 ####[facility] [address] [place], [address] Monocytes/100 WBC (Bld) 5.4 % Normal 0-10 [facility] Comment on above: Performed By: #### L 500.2500, L100.0100 ####[facility] [address] [place], [address] Neutrophils/100 WBC (Bld) 70.4 % High 47-70 [facility] Comment on above: Performed By: #### L 500.2500, L100.0100 ####[facility] [address] [place], [address] Nucleated RBC (Bld) [#/Vol] 0 10*3/uL Normal 0-5 [facility] Comment on above: Performed By: #### L 500.2500, L100.0100 ####[facility] [address] [place], [address] Platelet mean volume (Bld) [Entitic vol] 10.9 fL Normal 6.2-12.0 [facility] Comment on above: Performed By: #### L 500.2500, L100.0100 ####[facility] [address] [place], [address] Platelets (Bld) [#/Vol] 234 10*3/uL Normal 150-450 [facility] Comment on above: Performed By: #### L 500.2500, L100.0100 ####[facility] [address] [place], [address] RBC (Bld) [#/Vol] 4.36 10*6/uL Normal 4.2-5.[address] [facility] Comment on above: Performed By: #### L 500.2500, L100.0100 ####[facility] [address] [place], [address] RDW SD 48.6 fl High 35.1-43.9 [facility] Comment on above: Performed By: #### L 500.2500, L100.0100 ####[facility] [address] [place], [address] WBC (Bld) [#/Vol] 10.2 10*3/uL Normal 4.4-11.[address] [facility] Comment on above: Performed By: #### L 500.2500, L100.0100 ####[facility] [address] [place], [address] Carbon dioxide, total [Moles /volume] in Central venous bloodOrdered By: Rell Loera on 12-06-2024 CO2 [Moles/Vol] 25.1 mmol/L 21.0-32.0 [facility] Chest PA and Lateralon 12-06 Chest PA and Lateral Normal [facility] Chloride assayOrdered By: Nataliya Loera on 12-06-2024 Chloride [Moles/Vol] 100 mmol/L 98-108 [facility] Emergency Department Summary on 12-06-2024 Emergency Department Summary Normal [facility] Eosinophil percentageOrdered By: Rell Loera on 12-06-2024 Eosinophils/100 WBC (Bld) 0.8 % 0-5 [facility] Erythrocyte distribution wid th ratioOrdered By: Rell Loera on 12-06-2024 Erythrocyte distribution width (RBC) [Ratio] 14.1 % 11.6-14.6 [facility] Erythrocyte distribution wid th standard deviationOrdered By: Rell Loera on 12-06-2024 Erythrocyte distribution width (RBC) [Ratio] 48.6 fl High 35.1-43.9 [facility] Glomerular filtration rate ( GFR) estimation/1.73 sq m using serum, plasma, or whole bOrdered By: Rell Loera on 12-06-2024 GFR/1.73 sq M.predicted among non-blacks MDRD (S/P/Bld) [Vol rate/Area] 83 mL/min/{1.73_m2} >60 [facility] Hematocrit Auto (Bld) [Volum e fraction]Ordered By: Rell Loera on 12-06-2024 Hematocrit (Bld) [Volume fraction] 40.8 % 37-47 [facility] Hemoglobin measurementOrdere d By: Rell Loera on 12-06-2024 Hemoglobin (Bld) [Mass/Vol] 13.3 g/dL 12.0-15.0 [facility] Immature granulocytes/100 WB C Auto (Bld)Ordered By: Rell Leora on 12-06-2024 Immature granulocytes/100 WBC (Bld) 0.700 % 0.0-0.9 [facility] L499.0042on 12-06-2024 Trop T High Sen < 6 Normal <=14 [facility] Comment on above: Performed By: #### L 499.0042 ####[facility] [address] [place], [address] L499.0043on 12-06-2024 Trop T High Sen Normal <=14 [facility] Comment on above: Result Comment: Canc elled via OM: Order cancelled - Patient discharged Performed By: #### L 499.0043 ####[facility] [address] [place], [address] L501.4021on 12-06-2024 Trop T High Sen 7 ng/L Normal <=14 [facility] Comment on above: Performed By: #### L 501.4021, L503.2615 ####[facility] [address] [place], [address] L503.7505on 12-06-2024 Natriuretic peptide B (Bld) [Mass/Vol] 507 pg/mL Normal <=900 [facility] Comment on above: Result Comment: Hear t Failure Unlikely: < 300 pg/mLHeart Failure Likely< 50 Years: > 450 pg/mL50-75 Years: > 900 pg/mL>75 Years: > 1800 pg/mL Performed By: #### L 501.4021, L503.7505 ####[facility] [address] [place], [address] MCV (mean corpuscular volume ) determinationOrdered By: Rell Loera on 12-06-2024 MCV (RBC) [Entitic vol] 93.6 fL 81-99 [facility] Mean corpuscular hemoglobin (MCH) determinationOrdered By: Rell Loera on 12-06-2024 MCH (RBC) [Entitic mass] 30.5 pg 27.0-32.0 [facility] Monocyte percentageOrdered B y: Rell Loera on 12-06-2024 Monocytes/100 WBC (Bld) 5.4 % 0-10 [facility] Natriuretic peptide.B prohor tiffanie N-Terminal [Mass/volume] in Serum or PlasmaOrdered By: Rell Loera on 12-06-2024 Natriuretic peptide.B prohormone N-Terminal [Mass/Vol] 507 pg/mL <900 [facility] Neutrophil percentageOrdered By: Rell Loera on 12-06-2024 Neutrophils/100 WBC (Bld) 70.4 % High 47-70 [facility] Platelet countOrdered By: Nataliya Loera on 12-06-2024 Platelets (Bld) [#/Vol] 234 10*3/uL 150-450 [facility] Potassium measurement (mass/ volume)Ordered By: Rell Loera on 12-06-2024 Potassium (Unsp spec) [Mass/Vol] 3.9 mmol/L 3.3-5.1 [facility] RBC Auto (Bld) [#/Vol]Ordere d By: Rell Loera on 12-06-2024 RBC (Bld) [#/Vol] 4.36 10*6/uL 4.2-5.[address] [facility] Serum creatinine measurement (mass/volume)Ordered By: Rell Loera on 12-06-2024 Creatinine [Mass/Vol] 0.84 mg/dL 0.70-1.20 [facility] Serum glucose measurement (m ass/volume)Ordered By: Rell Loera on 12-06-2024 Glucose [Mass/Vol] 224 mg/dL High 70-99 [facility] Serum or plasma calcium oliver urement (mass/volume)Ordered By: Rell Loera on 12-06-2024 Calcium [Mass/Vol] 8.8 mg/dL 7.6-11.0 [facility] Serum or plasma urea nitroge n measurement (mass/volume)Ordered By: Rell Loera on 12-06-2024 Urea nitrogen [Mass/Vol] 32 mg/dL High 4-19 [facility] Sodium levelOrdered By: Edaur Loera on 12-06-2024 Sodium [Moles/Vol] 137 mmol/L 133-145 [facility] Troponin T.cardiac [Mass/vol ume] in Serum or Plasma by High sensitivity methodOrdered By: Rell Loera on 12-06-2024 Troponin T.cardiac High sensitivity method [Mass/Vol] < 6 ng/L <14 [facility] Troponin T.cardiac High sensitivity method [Mass/Vol] 7 ng/L <14 [facility] White blood cell (WBC) count Ordered By: Rell Loera on 12-06-2024 WBC (Bld) [#/Vol] 10.2 10*3/uL 4.4-11.[address] [facility] Bedside Glucoseon 12-03-2024 FINGERSTICK GLU > 500 Invalid Interpretation Code [address] [place] [id number] Comment on above: Result Comment: Repe at TestMANAGEMENT OF PATIENT CARE PER NURSING PROTOCOL Performed By: #### L 501.080 ####[facility] [address] [place], [place], [address] Result Comment: HILDA GEMENT OF PATIENT CARE PER NURSING PROTOCOL Urine Cultureon 12-03-2024 URC Below infection leve l. GPC Poss Enterococcus sp Ravenel Count <1000 Normal [facility] Comment on above: Performed By: #### M 100.2200, L400.0001 ####[facility] [address] [place], [place], [address] Bedside Glucoseon 12-01-2024 FINGERSTICK GLU 405 mg/dL High -[address] [place] [id number] Comment on above: Result Comment: HILDA GEMENT OF PATIENT CARE PER NURSING PROTOCOL Performed By: #### L 501.080 ####[facility] [address] [place], [place], [address] Calculated very low density lipoprotein (VLDL) cholesterol measurementOrdered By: Suma Mathew on 12-01-2024 Calculated very low density lipoprotein (VLDL) cholesterol measurement 18 mg/dL 5-40 [facility] Discharge Instructionon 11-05 Discharge Instruction Normal [facility] [place] Echocardiogram study reportO rdered By: Estrellita Alarcon on 12-01-2024 Study report [facility] Work Phone: Free T3on 12-01-2024 Free T3 [Mass/Vol] 3.1 pg/mL Normal 2.18-3.98 [facility] Comment on above: Performed By: #### L 501.9520, L506.0400, L501.08533, L500.4100 ####[facility] [address] [place], [address] Free L7Iyeitmw By: Suma fenton on 12-01-2024 Free T3 [Mass/Vol] 3.1 pg/mL 2.18-3.98 [facility] Glucose measurement at [facility] deOrdered By: Aidan Staples on 12-01-2024 Glucose [Mass/Vol] 405 mg/dL High 74-106 [facility] LDL calc ser/plasOrdered By: Suma Mathew on 12-01-2024 Cholesterol in LDL [Mass/Vol] 89 mg/dL [facility] Lipid Profileon 12-01-2024 CHOL:HDL 2.30 Normal [facility] Comment on above: Performed By: #### L 501.9520, L506.0400, L501.78208, L500.4100 ####[facility] [address] [place], [address] Cholesterol [Mass/Vol] 188 mg/dL Normal <=200 [facility] Comment on above: Result Comment: Chol esterol level, Desirable <200 mg/dLBorderline high cholesterol 200-239 mg/dLHigh cholesterol >=240 mg/dLRecommendations of the NCEP Adult Treatment Panel for thefollowing risk-cutoff thresholds for the [place] [facility]. Performed By: #### L 501.9520, L506.0400, L501.98870, L500.4100 ####[facility] [address] [place], [address] Cholesterol in HDL [Mass/Vol] 82 mg/dL Normal [facility] Comment on above: Result Comment: Malathi onal Cholesterol Education Program (NCEP) guidelines:<40 mg/dL: Low HDL-cholesterol (major risk factor for CHD)>= 60 mg/dL: High HDL-cholesterol (negative risk factor forCHD)HDL-cholesterol is affected by a number of factors, e.g.smoking, exercise, hormones, sex and age. Performed By: #### L 501.9520, L506.0400, L501.90943, L500.4100 ####[facility] [address] [place], [address] Cholesterol in LDL [Mass/Vol] 89 mg/dL Normal [facility] Comment on above: Result Comment: Bord sbtexv=480-256 mg/dL Higher Skij=381 mg/dL or greater Performed By: #### L 501.9520, L506.0400, L501.59352, L500.4100 ####[facility] [address] [place], [address] Cholesterol in VLDL [Mass/Vol] 18 mg/dL Normal 5-40 [facility] Comment on above: Performed By: #### L 501.9520, L506.0400, L501.95152, L500.4100 ####[facility] [address] [place], [address] Triglyceride [Mass/Vol] 88 mg/dL Normal [facility] Comment on above: Result Comment: The drugs N-Acetylcysteine and Metamizole may falselydepress this assay.Normal range: <150 mg/dLBorderline High: 150-199 mg/dLHigh: 200-499 mg/dLVery High: >500 mg/dL Performed By: #### L 501.9520, L506.0400, L501.33466, L500.4100 ####[facility] [address] [place], [address] RESPIRATORY PANEL MOLECULARo n 12-01-2024 RP PANEL Normal [facility] Comment on above: Performed By: #### M 100.638 ####[facility] [address] [place], [address] Serum or plasma cholesterol in HDL measurement (mass/volume)Ordered By: Suma Mathew on 12-01-2024 Cholesterol in HDL [Mass/Vol] 82 mg/dL >40 [facility] Serum or plasma cholesterol measurement (mass/volume)Ordered By: Suma Mathew on 12-01-2024 Cholesterol [Mass/Vol] 188 mg/dL <201 [facility] T4 Free Directon 12-01-2024 T4 FREE DIRECT 1.20 ng/dL Normal 0.76-1.46 [facility] Comment on above: Performed By: #### L 501.9520, L506.0400, L501.66325, L500.4100 ####[facility] [address] [place], [place], [id number] T4 freeOrdered By: Suma fenton on 12-01-2024 Free T4 [Mass/Vol] 1.20 ng/dL 0.76-1.46 [facility] TSH DL <= 0.005 mIU/L QnOrde red By: Suma Mathew on 12-01-2024 TSH Qn 0.373 uIU/mL 0.300-4.200 [facility] Thyroid Stim Hormone (TSH)on 12-01-2024 TSH 0.373 uIU/mL Normal 0.300-4.200 [facility] Comment on above: Performed By: #### L 501.9520, L506.0400, L501.80118, L500.4100 ####[facility] [address] [place], [place], [id number] Absolute lymphocyte countOrd ered By: Allen Meraz on 11-30-2024 Lymphocytes Auto (Unsp spec) [#/Vol] 2.22 10*3/uL 0.83-4.51 [facility] Anion gap in Serum or Plasma Ordered By: Allen Meraz on 11-30-2024 Anion gap [Moles/Vol] 11 mmol/L 5-15 [facility] Automated lymphocyte count a s percentage of total leukocytesOrdered By: Remus Meraz on 11-30-2024 Lymphocytes/100 WBC Auto (Unsp spec) 30.4 % 19-41 [facility] BUN/creatinine ratioOrdered By: Allen Meraz on 11-30-2024 Urea nitrogen/Creatinine [Mass ratio] 26.3 mg/mg High 10-20 [facility] Basic Metabolic Profile (BMP )on 11-30-2024 BUN/CRE 26.3 RATIO High [facility] Comment on above: Performed By: #### L 501.4021, L300.8000, L500.2500, L100.0100 ####[facility] [address] [place], [address] Calcium [Mass/Vol] 8.4 mg/dL Normal 7.6-11.0 [facility] Comment on above: Performed By: #### L 501.4021, L300.8000, L500.2500, L100.0100 ####[facility] [address] [place], [address] Chloride [Moles/Vol] 105 mmol/L Normal 98-108 [facility] Comment on above: Performed By: #### L 501.4021, L300.8000, L500.2500, L100.0100 ####[facility] [address] [place], [address] CO2 [Moles/Vol] 20.1 mmol/L Low 21.0-32.0 [facility] Comment on above: Performed By: #### L 501.4021, L300.8000, L500.2500, L100.0100 ####[facility] [address] [place], [address] Creatinine [Mass/Vol] 0.85 mg/dL Normal 0.70-1.20 [facility] Comment on above: Performed By: #### L 501.4021, L300.8000, L500.2500, L100.0100 ####[facility] [address] [place], [address] ECRCL 87.65 ml/min Normal 50-250 [facility] Comment on above: Performed By: #### L 501.4021, L300.8000, L500.2500, L100.0100 ####[facility] [address] [place], [address] GAP 11 Normal 5-15 [facility] Comment on above: Performed By: #### L 501.4021, L300.8000, L500.2500, L100.0100 ####[facility] [address] [place], [address] GFR/1.73 sq M.predicted among non-blacks MDRD (S/P/Bld) [Vol rate/Area] 81 mL/min/{1.73_m2} Normal >60 [facility] Comment on above: Result Comment: mL/m in/1.73m2 CKD-EPI Creatinine Equation (2020) Performed By: #### L 501.4021, L300.8000, L500.2500, L100.0100 ####[facility] [address] [place], [address] Glucose [Mass/Vol] 300 mg/dL High 70-99 [facility] Comment on above: Performed By: #### L 501.4021, L300.8000, L500.2500, L100.0100 ####[facility] [address] [place], [address] Potassium [Moles/Vol] 4.4 mmol/L Normal 3.3-5.1 [facility] Comment on above: Result Comment: Hemo lysis present, Results??could be affected.?? Performed By: #### L 501.4021, L300.8000, L500.2500, L100.0100 ####[facility] [address] [place], [address] Sodium [Moles/Vol] 137 mmol/L Normal 133-145 [facility] Comment on above: Performed By: #### L 501.4021, L300.8000, L500.2500, L100.0100 ####[facility] [address] [place], [address] Urea nitrogen [Mass/Vol] 23 mg/dL High 4-19 [facility] Comment on above: Performed By: #### L 501.4021, L300.8000, L500.2500, L100.0100 ####[facility] [address] [place], [address] Basophil percentageOrdered B y: Remus Ungur on 11-30-2024 Basophils/100 WBC (Bld) 0.3 % 0-1 [facility] Bedside Glucoseon 11-30-2024 FINGERSTICK GLU 370 mg/dL High 74-106 [facility] Comment on above: Result Comment: HILDA PANIAGUA OF PATIENT CARE PER NURSING PROTOCOL Performed By: #### L 501.080 ####[facility] [address] [place], [address] Bilirubin Test strip Ql (U)O rdered By: Suma Mathew on 11-30-2024 Bilirubin Ql (U) Negative Negative [facility] CBC W/Diff, Automatedon 11-05 Absolute Lymph 2.22 X10 3/uL Normal 0.83-4.51 [facility] Comment on above: Performed By: #### L 501.4021, L300.8000, L500.2500, L100.0100 ####[facility] [address] [place], [address] Absolute Neut 4.5 X10 3/uL Normal 2.0-7.7 [facility] Comment on above: Performed By: #### L 501.4021, L300.8000, L500.2500, L100.0100 ####[facility] [address] [place], [address] Basophils/100 WBC (Bld) 0.3 % Normal 0-1 [facility] Comment on above: Performed By: #### L 501.4021, L300.8000, L500.2500, L100.0100 ####[facility] [address] [place], [address] Eosinophils/100 WBC (Bld) 1.9 % Normal 0-5 [facility] Comment on above: Performed By: #### L 501.4021, L300.8000, L500.2500, L100.0100 ####[facility] [address] [place], [address] Erythrocyte distribution width (RBC) [Ratio] 14.0 % Normal 11.6-14.6 [facility] Comment on above: Performed By: #### L 501.4021, L300.8000, L500.2500, L100.0100 ####[facility] [address] [place], [address] Hematocrit (Bld) [Volume fraction] 37.0 % Normal 37-47 [facility] Comment on above: Performed By: #### L 501.4021, L300.8000, L500.2500, L100.0100 ####[facility] [address] [place], [address] Hemoglobin (Bld) [Mass/Vol] 12.2 g/dL Normal 12.0-15.0 [facility] Comment on above: Performed By: #### L 501.4021, L300.8000, L500.2500, L100.0100 ####[facility] [address] [place], [address] IG% 0.300 Normal 0.0-0.9 [facility] Comment on above: Result Comment: IG% - Immature Granulocytes (promyelocytes, myelocytes andmetamyelocytes) > 1% indicates that a LEFT SHIFT is Present. Performed By: #### L 501.4021, L300.8000, L500.2500, L100.0100 ####[facility] [address] [place], [address] Lymphocytes/100 WBC (Bld) 30.4 % Normal 19-41 [facility] Comment on above: Performed By: #### L 501.4021, L300.8000, L500.2500, L100.0100 ####[facility] [address] [place], [address] MCH (RBC) [Entitic mass] 30.7 pg Normal 27.0-32.0 [facility] Comment on above: Performed By: #### L 501.4021, L300.8000, L500.2500, L100.0100 ####[facility] [address] [place], [address] MCHC (RBC) [Mass/Vol] 33.0 g/dL Normal 32-36 [facility] Comment on above: Performed By: #### L 501.4021, L300.8000, L500.2500, L100.0100 ####[facility] [address] [place], [address] MCV (RBC) [Entitic vol] 93.2 fL Normal 81-99 [facility] Comment on above: Performed By: #### L 501.4021, L300.8000, L500.2500, L100.0100 ####[facility] [address] [place], [address] Monocytes/100 WBC (Bld) 5.2 % Normal 0-10 [facility] Comment on above: Performed By: #### L 501.4021, L300.8000, L500.2500, L100.0100 ####[facility] [address] [place], [address] Neutrophils/100 WBC (Bld) 61.9 % Normal 47-70 [facility] Comment on above: Performed By: #### L 501.4021, L300.8000, L500.2500, L100.0100 ####[facility] [address] [place], [address] Nucleated RBC (Bld) [#/Vol] 0 10*3/uL Normal 0-5 [facility] Comment on above: Performed By: #### L 501.4021, L300.8000, L500.2500, L100.0100 ####[facility] [address] [place], [address] Platelet mean volume (Bld) [Entitic vol] 10.4 fL Normal 6.2-12.0 [facility] Comment on above: Performed By: #### L 501.4021, L300.8000, L500.2500, L100.0100 ####[facility] [address] [place], [address] Platelets (Bld) [#/Vol] 184 10*3/uL Normal 150-450 [facility] Comment on above: Performed By: #### L 501.4021, L300.8000, L500.2500, L100.0100 ####[facility] [address] [place], [address] RBC (Bld) [#/Vol] 3.97 10*6/uL Low 4.2-5.[address] [facility] Comment on above: Performed By: #### L 501.4021, L300.8000, L500.2500, L100.0100 ####[facility] [address] [place], [address] RDW SD 47.7 fl High 35.1-43.9 [facility] Comment on above: Performed By: #### L 501.4021, L300.8000, L500.2500, L100.0100 ####[facility] [address] [place], [address] WBC (Bld) [#/Vol] 7.3 10*3/uL Normal 4.4-11.0 [facility] Comment on above: Performed By: #### L 501.4021, L300.8000, L500.2500, L100.0100 ####[facility] [address] [place], [place], [address] Carbon dioxide, total [Moles /volume] in Central venous bloodOrdered By: Allen Meraz on 11-30-2024 CO2 [Moles/Vol] 20.1 mmol/L Low 21.0-32.0 [facility] Chest 1 View (Portable)on Chest 1 View (Portable) Normal [facility] Chloride assayOrdered By: Erica Meraz on 11-30-2024 Chloride [Moles/Vol] 105 mmol/L 98-108 [facility] D-Dimer Quantitative (DVT/PE )on 11-30-2024 D-DIMER QUANT 0.49 FEU/ug/m Normal 0.27-0.49 [facility] Comment on above: Result Comment: NORM AL D-Dimer level (<0.50) indicates no DVT or PE. Performed By: #### L 501.4021, L300.8000, L500.2500, L100.0100 ####[facility] [address] [facility] [place], [address] Echo Complete W/ Contraston 11-30-2024 Echo Complete W/ Contrast Normal [facility] Emergency Department Summary on 11-30-2024 Emergency Department Summary Normal [facility] Eosinophil percentageOrdered By: Allen Meraz on 11-30-2024 Eosinophils/100 WBC (Bld) 1.9 % 0-5 [facility] Erythrocyte distribution wid th ratioOrdered By: Allen Meraz on 11-30-2024 Erythrocyte distribution width (RBC) [Ratio] 14.0 % 11.6-14.6 [facility] Erythrocyte distribution wid th standard deviationOrdered By: Allen Meraz on 11-30-2024 Erythrocyte distribution width (RBC) [Ratio] 47.7 fl High 35.1-43.9 [facility] Glomerular filtration rate ( GFR) estimation/1.73 sq m using serum, plasma, or whole bOrdered By: Allen Meraz on 11-30-2024 GFR/1.73 sq M.predicted among non-blacks MDRD (S/P/Bld) [Vol rate/Area] 81 mL/min/{1.73_m2} >60 [facility] H AND P Exam - Hospitaliston 11-30-2024 H&P Exam - Hospitalist Normal [facility] Hematocrit Auto (Bld) [Volum e fraction]Ordered By: Allen Meraz on 11-30-2024 Hematocrit (Bld) [Volume fraction] 37.0 % 37-47 [facility] Hemoglobin measurementOrdere d By: Allen Meraz on 11-30-2024 Hemoglobin (Bld) [Mass/Vol] 12.2 g/dL 12.0-15.0 [facility] Immature granulocytes/100 WB C Auto (Bld)Ordered By: Allen Meraz on 11-30-2024 Immature granulocytes/100 WBC (Bld) 0.300 % 0.0-0.9 [facility] Influenza virus A and B and SARS-CoV-2 (COVID-19) and Respiratory syncytial virus RNAOrdered By: Allen Meraz on 11-30-2024 SARS-CoV-2 (COVID-19) RNA ROSALIA+probe Ql (Unsp spec) [facility] Ketones Test strip Ql (U)Ord ered By: Suma Mathew on 11-30-2024 Ketones Ql (U) Negative Negative [facility] L499.0042on 11-30-2024 Trop T High Sen Normal <=14 [facility] Comment on above: Result Comment: Canc elled via OM: Ordered Performed By: #### L 499.0042 ####[facility] [address] [place], [address] L499.0043on 11-30-2024 Trop T High Sen Normal <=14 [facility] Comment on above: Result Comment: Canc elled via OM: Ordered Performed By: #### L 499.0043 ####[facility] [address] [place], [address] L501.4021on 11-30-2024 Trop T High Sen 7 ng/L Normal <=14 [facility] Comment on above: Performed By: #### L 501.4021, L300.8000, L500.2500, L100.0100 ####[facility] [address] [place], [address] L503.7505on 11-30-2024 Natriuretic peptide B (Bld) [Mass/Vol] 1366 pg/mL High <=900 [facility] Comment on above: Result Comment: Hear t Failure Unlikely: < 300 pg/mLHeart Failure Likely< 50 Years: > 450 pg/mL50-75 Years: > 900 pg/mL>75 Years: > 1800 pg/mL Performed By: #### L 503.7505 ####[facility] [address] [place], [address] M100.678on 11-30-2024 M100.678 Pending SARS-CoV-2 (COVID 19) Negative INFLUENZA A Negative INFLUENZA B Negative RSV PCR Negative Normal [facility] Comment on above: Performed By: #### M 100.678 ####[facility] [address] [place], [place], [address] MCV (mean corpuscular volume ) determinationOrdered By: Allen Meraz on 11-30-2024 MCV (RBC) [Entitic vol] 93.2 fL 81-99 [facility] Mean corpuscular hemoglobin (MCH) determinationOrdered By: Allen Meraz on 11-30-2024 MCH (RBC) [Entitic mass] 30.7 pg 27.0-32.0 [facility] Monocyte percentageOrdered B y: Allen Meraz on 11-30-2024 Monocytes/100 WBC (Bld) 5.2 % 0-10 [facility] Mucus LM Ql (Urine sed)Order ed By: Suma Mathew on 11-30-2024 Mucus Ql (Urine sed) 0 SEEN /hpf [facility] [place] Natriuretic peptide.B prohor tiffanie N-Terminal [Mass/volume] in Serum or PlasmaOrdered By: Allen Meraz on 11-30-2024 Natriuretic peptide.B prohormone N-Terminal [Mass/Vol] 1366 pg/mL High <900 [facility] Neutrophil percentageOrdered By: Allen Meraz on 11-30-2024 Neutrophils/100 WBC (Bld) 61.9 % 47-70 [facility] Nitrite Test strip Ql (U)Ord ered By: Suma Mathew on 11-30-2024 Nitrite Ql (U) Negative Negative [facility] Platelet countOrdered By: Erica Meraz on 11-30-2024 Platelets (Bld) [#/Vol] 184 10*3/uL 150-450 [facility] Potassium measurement (mass/ volume)Ordered By: Allen Meraz on 11-30-2024 Potassium (Unsp spec) [Mass/Vol] 4.4 mmol/L 3.3-5.1 [facility] Protein Test strip Ql (U)Ord ered By: Suma Mathew on 11-30-2024 Protein Ql (U) 15 mg/dl High Negative [facility] RBC Auto (Bld) [#/Vol]Ordere d By: Allen Meraz on 11-30-2024 RBC (Bld) [#/Vol] 3.97 10*6/uL Low 4.2-5.[address] [facility] Respiratory pathogens detect ion panel by molecular detection methodOrdered By: Suma Mathew on 11-30-2024 Respiratory pathogens DNA and RNA panel ROSALIA+probe (Resp) [facility] Serum creatinine measurement (mass/volume)Ordered By: Allen Meraz on 11-30-2024 Creatinine [Mass/Vol] 0.85 mg/dL 0.70-1.20 [facility] [facility] [place] [facility] Serum glucose measurement (m ass/volume)Ordered By: Allen Meraz on 11-30-2024 Glucose [Mass/Vol] 300 mg/dL High 70-99 [facility] Serum or plasma calcium oliver urement (mass/volume)Ordered By: Allen Meraz on 11-30-2024 Calcium [Mass/Vol] 8.4 mg/dL 7.6-11.0 [facility] Serum or plasma urea nitroge n measurement (mass/volume)Ordered By: Allen Meraz on 11-30-2024 Urea nitrogen [Mass/Vol] 23 mg/dL High 4-19 [facility] Sodium levelOrdered By: Aly Meraz on 11-30-2024 Sodium [Moles/Vol] 137 mmol/L 133-145 [facility] Squamous epithelial cells de tection in urine sediment by light microscopyOrdered By: Suma Mathew on 11-30-2024 Epithelial cells.squamous LM Ql (Urine sed) 0 SEEN /hpf 5-10 [facility] Troponin T.cardiac [Mass/vol ume] in Serum or Plasma by High sensitivity methodOrdered By: Allen Meraz on 11-30-2024 Troponin T.cardiac High sensitivity method [Mass/Vol] 7 ng/L Invalid Interpretation Code <14 [facility] Urinalysis, Completeon 11-30 BACTERIA 0 SEEN Normal None Seen [facility] Comment on above: Order Comment: CLEAN CATCH Performed By: #### M 100.2200, L400.0001 ####[facility] [address] [place], [address] EPI,SQUAMOUS 0 SEEN Normal 5-10 [facility] Comment on above: Order Comment: CLEAN CATCH Performed By: #### M 100.2200, L400.0001 ####[facility] [address] [place], [address] Mucus Ql (Urine sed) 0 SEEN Normal [facility] Comment on above: Order Comment: CLEAN CATCH Performed By: #### M 100.2200, L400.0001 ####[facility] [address] [place], [address] RBC 0 SEEN Normal 0-5 [facility] Comment on above: Order Comment: CLEAN CATCH Performed By: #### M 100.2200, L400.0001 ####[facility] [address] [place], [address] WBC 0 SEEN Normal 0-5 [facility] Comment on above: Order Comment: CLEAN CATCH Performed By: #### M 100.2200, L400.0001 ####[facility] [address] [place], [address] Urine clarityOrdered By: Blair Mathew on 11-30-2024 Clarity (U) Clear Clear [facility] Urine color determinationOrd ered By: Suma Mathew on 06-27-2025 Color (U) Straw Yellow [facility] Urine cultureOrdered By: Blair Mathew on 11-30-2024 Bacteria identified Cx Nom (U) GPC Poss Enterococcus sp Abnormal [facility] Urine glucose detectionOrder ed By: Suma Mathew on 11-30-2024 Glucose Ql (U) 100 mg/dl High Normal [facility] Urine leukocyte esterase det ection by dipstickOrdered By: Suma Mathew on 11-30-2024 Leukocyte esterase Test strip Ql (U) Negative Negative [facility] Urine pHOrdered By: Suma young on 11-30-2024 pH (U) 6.5 [pH] 5.0 - 8.0 [facility] Urine sediment bacteria coun t by microscopy (number/high power field)Ordered By: Suma Mathew on 11-30-2024 Bacteria LM.HPF (Urine sed) [#/Area] 0 /[HPF] None Seen [facility] Urine specific gravity measu rementOrdered By: Suma Mathew on 11-30-2024 Specific gravity (U) [Rel density] 1.010 1.002-1.030 [facility] Urine urobilinogen measureme ntOrdered By: Suma Mathew on 11-30-2024 Urobilinogen Ql (U) Normal mg/dl Normal [facility] [place] White blood cell (WBC) count Ordered By: Allen Meraz on 11-30-2024 WBC (Bld) [#/Vol] 7.3 10*3/uL 4.4-11.0 [facility] White blood cell countOrdere d By: Suma Mathew on 11-30-2024 White blood cell count 0 SEEN /hpf 0-5 [facility] Endocrinology Visit Reporton 11-07-2024 Endocrinology Visit Report Normal [facility] 12 Lead EKGon 10-15-2024 12 Lead EKG Normal [facility] Absolute lymphocyte countOrd ered By: ED PROVIDER on 10-15-2024 Lymphocytes Auto (Unsp spec) [#/Vol] 1.70 10*3/uL 0.83-4.51 [facility] Absolute neutrophil countOrd ered By: ED PROVIDER on 10-15-2024 Neutrophils (Bld) [#/Vol] 4.2 10*3/uL 2.0-7.7 [facility] Anion gap in Serum or Plasma Ordered By: ED PROVIDER on 10-15-2024 Anion gap [Moles/Vol] 10 mmol/L 5-15 [facility] [facility] Automated blood erythrocyte countOrdered By: ED PROVIDER on 10-15-2024 RBC (Bld) [#/Vol] 4.07 10*6/uL Low 4.2-5.[address] [facility] Comment on above: Performed By: #### L 500.2500, L501.4021, L100.0100 ####[facility] [address] [place], [address] Automated blood hematocrit ( percentage)Ordered By: ED PROVIDER on 10-15-2024 Hematocrit (Bld) [Volume fraction] 37.8 % Normal 37-47 [facility] Comment on above: Performed By: #### L 500.2500, L501.4021, L100.0100 ####[facility] [address] [place], [address] Automated lymphocyte count a s percentage of total leukocytesOrdered By: ED PROVIDER on 10-15-2024 Lymphocytes/100 WBC Auto (Unsp spec) 26.7 % 19- [facility] BUN/creatinine ratioOrdered By: ED PROVIDER on 10-15-2024 Urea nitrogen/Creatinine [Mass ratio] 17.9 mg/mg 10- [facility] Basic Metabolic Profile (BMP )on 10-15-2024 BUN/CRE 17.9 RATIO Normal - [facility] Comment on above: Performed By: #### L 500.2500, L501.4021, L100.0100 ####[facility] [address] [place], [address] Calcium [Mass/Vol] 9.3 mg/dL Normal 7.6-11.0 [facility] Comment on above: Performed By: #### L 500.2500, L501.4021, L100.0100 ####[facility] [address] [place], [address] Chloride [Moles/Vol] 106 mmol/L Normal 98-108 [facility] Comment on above: Performed By: #### L 500.2500, L501.4021, L100.0100 ####[facility] [address] [place], [address] CO2 [Moles/Vol] 22.0 mmol/L Normal 21.0-32.0 [facility] Comment on above: Performed By: #### L 500.2500, L501.4021, L100.0100 ####[facility] [address] [place], [address] Creatinine [Mass/Vol] 1.35 mg/dL High 0.70-1.20 [facility] [facility] [place] Comment on above: Performed By: #### L 500.2500, L501.4021, L100.0100 ####[facility] [address] [place], [address] ECRCL 53.30 ml/min Normal 50-250 [facility] Comment on above: Performed By: #### L 500.2500, L501.4021, L100.0100 ####[facility] [address] [place], [address] GAP 10 Normal 5-15 [facility] Comment on above: Performed By: #### L 500.2500, L501.4021, L100.0100 ####[facility] [address] [place], [address] GFR/1.73 sq M.predicted among non-blacks MDRD (S/P/Bld) [Vol rate/Area] 47 mL/min/{1.73_m2} Low >60 [facility] Comment on above: Result Comment: mL/m in/1.73m2 CKD-EPI Creatinine Equation (2020) Performed By: #### L 500.2500, L501.4021, L100.0100 ####[facility] [address] [place], [address] Glucose [Mass/Vol] 203 mg/dL High 70-99 [facility] Comment on above: Performed By: #### L 500.2500, L501.4021, L100.0100 ####[facility] [address] [place], [address] Potassium [Moles/Vol] 4.1 mmol/L Normal 3.3-5.1 [facility] [facility] [place] Comment on above: Performed By: #### L 500.2500, L501.4021, L100.0100 ####[facility] [address] [place], [address] Sodium [Moles/Vol] 138 mmol/L Normal 133-145 [facility] Comment on above: Performed By: #### L 500.2500, L501.4021, L100.0100 ####[facility] [address] [place], [address] Urea nitrogen [Mass/Vol] 24 mg/dL High 4-19 [facility] Comment on above: Performed By: #### L 500.2500, L501.4021, L100.0100 ####[facility] [address] [place], [address] Basophil percentageOrdered B y: ED PROVIDER on 10-15-2024 Basophils/100 WBC (Bld) 0.3 % Normal 0-1 [facility] Comment on above: Performed By: #### L 500.2500, L501.4021, L100.0100 ####[facility] [address] [place], [address] CBC W/Diff, Automatedon 10-04 Absolute Lymph 1.70 X10 3/uL Normal 0.83-4.51 [facility] Comment on above: Performed By: #### L 500.2500, L501.4021, L100.0100 ####[facility] [address] [place], [address] Absolute Neut 4.2 X10 3/uL Normal 2.0-7.7 [facility] Comment on above: Performed By: #### L 500.2500, L501.4021, L100.0100 ####[facility] [address] [place], [address] IG% 0.300 Normal 0.0-0.9 [facility] Comment on above: Result Comment: IG% - Immature Granulocytes (promyelocytes, myelocytes andmetamyelocytes) > 1% indicates that a LEFT SHIFT is Present. Performed By: #### L 500.2500, L501.4021, L100.0100 ####[facility] [address] [place], [address] Lymphocytes/100 WBC (Bld) 26.7 % Normal 19-41 [facility] Comment on above: Performed By: #### L 500.2500, L501.4021, L100.0100 ####[facility] [address] [place], [address] Nucleated RBC (Bld) [#/Vol] 0 10*3/uL Normal 0-5 [facility] Comment on above: Performed By: #### L 500.2500, L501.4021, L100.0100 ####[facility] [address] [place], [address] RDW SD 51.8 fl High 35.1-43.9 [facility] Comment on above: Performed By: #### L 500.2500, L501.4021, L100.0100 ####[facility] [address] [place], [address] Carbon dioxide, total [Moles /volume] in Central venous bloodOrdered By: ED PROVIDER on 10-15-2024 CO2 [Moles/Vol] 22.0 mmol/L 21.0-32.0 [facility] Chest 1 View (Portable)on Chest 1 View (Portable) Normal [facility] Chloride assayOrdered By: ED PROVIDER on 10-15-2024 Chloride [Moles/Vol] 106 mmol/L 98-108 [facility] Emergency Department Summary on 10-15-2024 Emergency Department Summary Normal [facility] Eosinophil percentageOrdered By: ED PROVIDER on 10-15-2024 Eosinophils/100 WBC (Bld) 0.6 % Normal 0-5 [facility] Comment on above: Performed By: #### L 500.2500, L501.4021, L100.0100 ####[facility] [address] [place], [address] Erythrocyte distribution wid th ratioOrdered By: ED PROVIDER on 10-15-2024 Erythrocyte distribution width (RBC) [Ratio] 15.1 % High 11.6-14.6 [facility] Comment on above: Performed By: #### L 500.2500, L501.4021, L100.0100 ####[facility] [address] [place], [address] Erythrocyte distribution wid th standard deviationOrdered By: ED PROVIDER on 10-15-2024 Erythrocyte distribution width (RBC) [Ratio] 51.8 fl High 35.1-43.9 [facility] Glomerular filtration rate ( GFR) estimation/1.73 sq m using serum, plasma, or whole bOrdered By: ED PROVIDER on 10-15-2024 GFR/1.73 sq M.predicted among non-blacks MDRD (S/P/Bld) [Vol rate/Area] 47 mL/min/{1.73_m2} Low >60 [facility] Comment on above: mL/min/1.73m2 CKD-EP I Creatinine Equation (2020) Hemoglobin measurementOrdere d By: ED PROVIDER on 10-15-2024 Hemoglobin (Bld) [Mass/Vol] 12.7 g/dL Normal 12.0-15.0 [facility] Comment on above: Performed By: #### L 500.2500, L501.4021, L100.0100 ####[facility] [address] [place], [address] Immature granulocytes/100 WB C Auto (Bld)Ordered By: ED PROVIDER on 10-15-2024 Immature granulocytes/100 WBC (Bld) 0.300 % 0.0-0.9 [facility] Comment on above: IG% - Immature Granu locytes (promyelocytes, myelocytes and metamyelocytes) > 1% indicates that a LEFT SHIFT is Present. L499.0042on 10-15-2024 Trop T High Sen 10 ng/L Normal <=14 [facility] Comment on above: Performed By: #### L 499.0042 ####[facility] [address] [place], [address] L499.0043on 10-15-2024 Trop T High Sen Normal <=14 [facility] Comment on above: Result Comment: Canc elled via OM: Order cancelled - Patient discharged Performed By: #### L 499.0043 ####[facility] [address] [place], [address] L501.4021on 10-15-2024 Trop T High Sen 10 ng/L Normal <=14 [facility] Comment on above: Performed By: #### L 500.2500, L501.4021, L100.0100 ####[facility] [address] [place], [address] MCV (mean corpuscular volume ) determinationOrdered By: ED PROVIDER on 10-15-2024 MCV (RBC) [Entitic vol] 92.9 fL Normal 81-99 [facility] Comment on above: Performed By: #### L 500.2500, L501.4021, L100.0100 ####[facility] [address] [place], [address] Mean corpuscular hemoglobin (MCH) determinationOrdered By: ED PROVIDER on 10-15-2024 MCH (RBC) [Entitic mass] 31.2 pg Normal 27.0-32.0 [facility] Comment on above: Performed By: #### L 500.2500, L501.4021, L100.0100 ####[facility] [address] [place], [address] Mean corpuscular hemoglobin concentration (MCHC) determinationOrdered By: ED PROVIDER on 10-15-2024 MCHC (RBC) [Mass/Vol] 33.6 g/dL Normal 32-36 [facility] Comment on above: Performed By: #### L 500.2500, L501.4021, L100.0100 ####[facility] [address] [place], [address] Mean platelet volume determi nationOrdered By: ED PROVIDER on 10-15-2024 Platelet mean volume (Bld) [Entitic vol] 10.0 fL Normal 6.2-12.0 [facility] Comment on above: Performed By: #### L 500.2500, L501.4021, L100.0100 ####[facility] [address] [place], [address] Monocyte percentageOrdered B y: ED PROVIDER on 10-15-2024 Monocytes/100 WBC (Bld) 6.6 % Normal 0-10 [facility] Comment on above: Performed By: #### L 500.2500, L501.4021, L100.0100 ####[facility] [address] [place], [address] Neutrophil percentageOrdered By: ED PROVIDER on 10-15-2024 Neutrophils/100 WBC (Bld) 65.5 % Normal 47-70 [facility] Comment on above: Performed By: #### L 500.2500, L501.4021, L100.0100 ####[facility] [address] [place], [address] Nucleated red blood cell per centageOrdered By: ED PROVIDER on 10-15-2024 Nucleated RBC/100 WBC (Bld) [Ratio] 0 % 0-5 [facility] Platelet countOrdered By: ED PROVIDER on 10-15-2024 Platelets (Bld) [#/Vol] 175 10*3/uL Normal 150-450 [facility] Comment on above: Performed By: #### L 500.2500, L501.4021, L100.0100 ####[facility] [address] [place], [address] Potassium measurement (mass/ volume)Ordered By: ED PROVIDER on 10-15-2024 Potassium (Unsp spec) [Mass/Vol] 4.1 mmol/L 3.3-5.1 [facility] Serum creatinine measurement (mass/volume)Ordered By: ED PROVIDER on 10-15-2024 Creatinine [Mass/Vol] 1.35 mg/dL High 0.70-1.20 [facility] Serum glucose measurement (m ass/volume)Ordered By: ED PROVIDER on 10-15-2024 Glucose [Mass/Vol] 203 mg/dL High 70-99 [facility] Serum or plasma calcium oliver urement (mass/volume)Ordered By: ED PROVIDER on 10-15-2024 Calcium [Mass/Vol] 9.3 mg/dL 7.6-11.0 [facility] Serum or plasma urea nitroge n measurement (mass/volume)Ordered By: ED PROVIDER on 10-15-2024 Urea nitrogen [Mass/Vol] 24 mg/dL High 4-19 [facility] Sodium levelOrdered By: KATHY LACY on 10-15-2024 Sodium [Moles/Vol] 138 mmol/L 133-145 [facility] Troponin T.cardiac [Mass/vol ume] in Serum or Plasma by High sensitivity methodOrdered By: Arjun Ortez on 10-15-2024 Troponin T.cardiac High sensitivity method [Mass/Vol] 10 ng/L <14 [facility] Troponin T.cardiac [Mass/vol ume] in Serum or Plasma by High sensitivity methodOrdered By: ED PROVIDER on 10-15-2024 Troponin T.cardiac High sensitivity method [Mass/Vol] 10 ng/L <14 [facility] White blood cell (WBC) count Ordered By: ED PROVIDER on 10-15-2024 WBC (Bld) [#/Vol] 6.4 10*3/uL Normal 4.4-11.0 [facility] Comment on above: Performed By: #### L 500.2500, L501.4021, L100.0100 ####[facility] [address] [place], [address] L3410.9992on 09-30-2024 [facility] Misc. COMMENT Normal . [facility] Comment on above: Order Comment: [id number] Result Comment: Test Ordered: [id number] H36-Dioaxf+QJ2Vgvovwmjfgbr Screen, Urine Negative ng/mL UI Reference Range: Lmnzfd=288Oqhqlhntbox test includes Amphetamine and Methamphetamine.Barbiturates Negative ng/mL UI Reference Range: Mkirab=161Ilvhslhposyhvfh Negative ng/mL UI Reference Range: Dvqrqq=771Fpnfdmt (Metab.), Urine Negative ng/mL UI Reference Range: Qqhpgh=722Jursrhu Note: ng/mL UI See Final Results Reference Range: Zhzagq=011Hgcqhp test includes Codeine, Morphine, Hydromorphone, Hydrocodone.Opiates Positive [A ] UI Reference Range: Fckvlc=198Frxvia test includes Codeine, Morphine, Hydromorphone, Hydrocodone.Codeine Negative UI Reference Range: Rufger=273Jizxasgx Negative UI Reference Range: Stoneq=198Smdujmdpmlcen Positive [A ] UI Reference Range: .Hydromorphone Conf, MS, UR 108 ng/mL UI Reference Range: Ppkbue=748Erlbbcibbyo Positive [A ] UI Reference Range: .Hydrocodone Conf, MS, UR 553 ng/mL UI Reference Range: Wzpukm=9772-Hziujheedmveox, Urine Negative ng/mL UI Reference Range: Cutoff=10Oxycodone/Oxymorphone, Urine Negative ng/mL UI Reference Range: Wkkckp=234Udpi includes Oxycodone and OxymorphonePCP, Urine Negative ng/mL UI Reference Range: Cutoff=25Methadone Screen, Urine Negative ng/mL UI Reference Range: Ehdqbk=018Oodmsloueggu, Urine Negative ng/mL UI Reference Range: Dojtvl=992Vqlffgek, Urine Negative ng/mL UI Reference Range: Cutoff=2.0Test includes Fentanyl and NorfentanylThis test was developed and its performance characteristicsdetermined by [facility]. It has not been cleared orapproved by the Food and Drug Administration.Tramadol Negative ng/mL UI Reference Range: Jznymi=329Tdkgsznlgcjse, Urine Negative ng/mL UI Reference Range: Cutoff=10Creatinine, Urine 74.4 mg/dL UI Reference Range: 20.0-300.0pH, Urine 5.4 UI Reference Range: 4.5-8.9Performed at: UI - [facility] [id number] [facility], [place], [place] [id number] Director: Rand Jaquez PhD, Phone: [phone] at: - [facility] [id number] [place], [place] [id number] Director: Vargas Kim PhD, Phone: [phone] Performed By: #### L 3410.9992, L505.5000 ####[facility] [address] [place], [place], [address] Amphetamine detection with 1 000 ng/mL as cutoffOrdered By: Darline Solano on 09-25-2024 Amphetamines Screen method >1000 ng/mL Ql (U) Negative < 200 ng/mL [facility] Amphetamines Screen method > 1000 ng/mL Ql (U)Ordered By: Darline Solano on 09-25-2024 Amphetamines Ql (U) Negative <1000 ng/mL [facility] Urine Barbiturates Screen Negative < 200 ng/mL [facility] Methadone, urineOrdered By: Darline Solano on 09-25-2024 Urine Methadone Screen Negative < 300 ng/mL [facility] No Panel InformationOrdered By: Darline Solano on 09-25-2024 Urine Buprenorphine Qualitative Negative < 200 ng/mL [facility] Urine Oxycodone Screen Negative < 100 ng/mL [facility] Negative < 200 ng/mL [facility] Quantitative urine opiates m easurementOrdered By: Darline Solano on 09-25-2024 Opiates Ql (U) Positive < 300 ng/mL [facility] Comment on above: If confirmation test ing is needed, a separate order will be required to send out testing to the reference laboratory. Screening urine fentanyl satish surementOrdered By: Darline Solano on 09-25-2024 fentaNYL Screen Ql (U) Negative [facility] Urine Drug Screen (VISTA)on 09-25-2024 AMPHETAMINES Negative Normal <1000 ng/mL [facility] Comment on above: Order Comment: MEDTO X Performed By: #### L 3410.9992, L505.5000 ####[facility] [address] [place], [address] BARBITIURATES Negative Normal < 200 ng/mL [facility] Comment on above: Order Comment: MEDTO X Performed By: #### L 3410.9992, L505.5000 ####[facility] [address] [facility] [address] BENZODIAZIPINE Negative Normal < 200 ng/mL [facility] Comment on above: Order Comment: MEDTO X Performed By: #### L 3410.9992, L505.5000 ####[facility] [address] [place], [address] BUP Ur Drug Scr Negative Normal < 200 ng/mL [facility] Comment on above: Order Comment: MEDTO X Performed By: #### L 3410.9992, L505.5000 ####[facility] [address] [place], [address] COCAINE Negative Normal < 300 ng/mL [facility] Comment on above: Order Comment: MEDTO X Performed By: #### L 3410.9992, L505.5000 ####[facility] [address] [place], [address] Fentanyl Negative Normal [facility] Comment on above: Order Comment: MEDTO X Performed By: #### L 3410.9992, L505.5000 ####[facility] [address] [facility] [address] METHADONE Negative Normal < 300 ng/mL [facility] Comment on above: Order Comment: MEDTO X Performed By: #### L 3410.9992, L505.5000 ####[facility] [address] [place], [address] OPIATES Positive Normal < 300 ng/mL [facility] Comment on above: Order Comment: MEDTO X Result Comment: If c onfirmation testing is needed, a separate order will berequired to send out testing to the reference laboratory. Performed By: #### L 3410.9992, L505.5000 ####[facility] [address] [place], [address] OXYCODONE Negative Normal < 100 ng/mL [facility] Comment on above: Order Comment: MEDTO X Performed By: #### L 3410.9992, L505.5000 ####[facility] [address] [place], [address] PCP Negative Normal < 25 ng/mL [facility] Comment on above: Order Comment: MEDTO X Performed By: #### L 3410.9992, L505.5000 ####[facility] [address] [place], [address] THC Negative Normal < 50 ng/mL [facility] Comment on above: Order Comment: MEDTO X Performed By: #### L 3410.9992, L505.5000 ####[facility] [address] [place], [address] Urine benzodiazepine levelOr dered By: Darline Basali on 09-25-2024 Benzodiazepines Ql (U) Negative < 200 ng/mL [facility] Urine cocaine levelOrdered B y: Mehranman Basali on 09-25-2024 Cocaine Ql (U) Negative < 300 ng/mL [facility] Urine nkiwe-5-eiuyiwfkadqbft abinol (THC) measurementOrdered By: Darline Basali on 09-25-2024 Cannabinoids Screen Ql (U) Negative < 50 ng/mL [facility] Urine phencyclidine (PCP) de tectionOrdered By: Darline Basali on 09-25-2024 Phencyclidine Ql (U) Negative < 25 ng/mL [facility] fentaNYL Screen Ql (U)Ordere d By: Darline Finchtom on 09-25-2024 Urine Fentanyl Screen Negative [facility] Thyroidon 09-24-2024 Thyroid Normal [facility] Endocrinology Visit Reporton 09-12-2024 Endocrinology Visit Report Normal [facility] Anion gap in Serum or Plasma Ordered By: Jamie Manrique on 09-11-2024 Anion gap [Moles/Vol] 13 mmol/L 5-15 [facility] BUN/creatinine ratioOrdered By: Jamie Manrique on 09-11-2024 Urea nitrogen/Creatinine [Mass ratio] 39.6 mg/mg High 10-20 [facility] Basic Metabolic Profile (BMP )on 09-11-2024 BUN/CRE 39.6 RATIO High - [facility] Comment on above: Performed By: #### L 500.2500, L100.0500 ####[facility] [address] [place], [address] Calcium [Mass/Vol] 8.9 mg/dL Normal 7.6-11.0 [facility] Comment on above: Performed By: #### L 500.2500, L100.0500 ####[facility] [address] [place], [address] Chloride [Moles/Vol] 103 mmol/L Normal 98-108 [facility] Comment on above: Performed By: #### L 500.2500, L100.0500 ####[facility] [address] [place], [address] CO2 [Moles/Vol] 19.3 mmol/L Low 21.0-32.0 [facility] Comment on above: Performed By: #### L 500.2500, L100.0500 ####[facility] [address] [place], [address] Creatinine [Mass/Vol] 0.87 mg/dL Normal 0.70-1.20 [facility] [facility] [place] [facility] Comment on above: Performed By: #### L 500.2500, L100.0500 ####[facility] [address] [place], [address] ECRCL 83.30 ml/min Normal 50-250 [facility] Comment on above: Performed By: #### L 500.2500, L100.0500 ####[facility] [address] [place], [address] GAP 13 Normal 5-15 [facility] Comment on above: Performed By: #### L 500.2500, L100.0500 ####[facility] [address] [place], [address] GFR/1.73 sq M.predicted among non-blacks MDRD (S/P/Bld) [Vol rate/Area] 80 mL/min/{1.73_m2} Normal >60 [facility] Comment on above: Result Comment: mL/m in/1.73m2 CKD-EPI Creatinine Equation (2020) Performed By: #### L 500.2500, L100.0500 ####[facility] [address] [place], [address] Glucose [Mass/Vol] 344 mg/dL High 70-99 [facility] Comment on above: Performed By: #### L 500.2500, L100.0500 ####[facility] [address] [place], [address] Potassium [Moles/Vol] 4.3 mmol/L Normal 3.3-5.1 [facility] [facility] Comment on above: Result Comment: Hemo lysis present, Results??could be affected.?? Performed By: #### L 500.2500, L100.0500 ####[facility] [address] [place], [address] Sodium [Moles/Vol] 135 mmol/L Normal 133-145 [facility] Comment on above: Performed By: #### L 500.2500, L100.0500 ####[facility] [address] [place], [address] Urea nitrogen [Mass/Vol] 34 mg/dL High 4-19 [facility] Comment on above: Performed By: #### L 500.2500, L100.0500 ####[facility] [address] [place], [address] Bedside Glucoseon 09-11-2024 FINGERSTICK GLU 455 mg/dL Invalid Interpretation Code 74-106 [facility] Comment on above: Result Comment: HILDA GEMENT OF PATIENT CARE PER NURSING PROTOCOL Performed By: #### L 501.080 ####[facility] [address] [place], [address] FINGERSTICK GLU 343 mg/dL High 74-106 [facility] Comment on above: Result Comment: HILDA GEMENT OF PATIENT CARE PER NURSING PROTOCOL Performed By: #### L 501.080 ####[facility] [address] [place], [address] FINGERSTICK GLU 254 mg/dL High -106 [facility] Comment on above: Result Comment: HILDA GEMENT OF PATIENT CARE PER NURSING PROTOCOL Performed By: #### L 501.080 ####[facility] [address] [place], [address] CBC-Complete Blood Cnt No Di ffon 09-11-2024 Erythrocyte distribution width (RBC) [Ratio] 13.0 % Normal 11.6-14.6 [facility] Comment on above: Performed By: #### L 500.2500, L100.0500 ####[facility] [address] [place], [address] Hematocrit (Bld) [Volume fraction] 39.8 % Normal 37-47 [facility] Comment on above: Performed By: #### L 500.2500, L100.0500 ####[facility] [address] [place], [address] Hemoglobin (Bld) [Mass/Vol] 13.5 g/dL Normal 12.0-15.0 [facility] Comment on above: Performed By: #### L 500.2500, L100.0500 ####[facility] [address] [place], [address] MCH (RBC) [Entitic mass] 30.3 pg Normal 27.0-32.0 [facility] Comment on above: Performed By: #### L 500.2500, L100.0500 ####[facility] [address] [place], [address] MCHC (RBC) [Mass/Vol] 33.9 g/dL Normal 32-36 [facility] Comment on above: Performed By: #### L 500.2500, L100.0500 ####[facility] [address] [place], [address] MCV (RBC) [Entitic vol] 89.4 fL Normal 81-99 [facility] Comment on above: Performed By: #### L 500.2500, L100.0500 ####[facility] [address] [place], [address] Platelet mean volume (Bld) [Entitic vol] 10.7 fL Normal 6.2-12.0 [facility] Comment on above: Performed By: #### L 500.2500, L100.0500 ####[facility] [address] [place], [address] Platelets (Bld) [#/Vol] 205 10*3/uL Normal 150-450 [facility] Comment on above: Performed By: #### L 500.2500, L100.0500 ####[facility] [address] [place], [address] RBC (Bld) [#/Vol] 4.45 10*6/uL Normal 4.2-5.[address] [facility] Comment on above: Performed By: #### L 500.2500, L100.0500 ####[facility] [address] [place], [address] RDW SD 42.7 fl Normal 35.1-43.9 [facility] Comment on above: Performed By: #### L 500.2500, L100.0500 ####[facility] [address] [place], [address] WBC (Bld) [#/Vol] 9.1 10*3/uL Normal 4.4-11.0 [facility] Comment on above: Performed By: #### L 500.2500, L100.0500 ####[facility] [address] [place], [address] Carbon dioxide, total [Moles /volume] in Central venous bloodOrdered By: Jamie Manrique on 09-11-2024 CO2 [Moles/Vol] 19.3 mmol/L Low 21.0-32.0 [facility] Chloride assayOrdered By: Adam Manrique on 09-11-2024 Chloride [Moles/Vol] 103 mmol/L 98-108 [facility] Erythrocyte distribution wid th (RBC) [Ratio]Ordered By: Jamie Manrique on 09-11-2024 Erythrocyte distribution width (RBC) [Entitic vol] 42.7 fL 35.1-43.9 [facility] Erythrocyte distribution wid th ratioOrdered By: Jamie Manrique on 09-11-2024 Erythrocyte distribution width (RBC) [Ratio] 13.0 % 11.6-14.6 [facility] Erythrocyte distribution wid th standard deviationOrdered By: Jamie Manrique on 09-11-2024 Erythrocyte distribution width (RBC) [Ratio] 42.7 fl 35.1-43.9 [facility] Estimation of creatinine kenzie aranceOrdered By: Jamie Manrique on 09-11-2024 Estimated Creatinine Clearance Calc 83.30 ml/min 50-250 [facility] GFR/1.73 sq M.predicted aleksandr g non-blacks MDRD (S/P/Bld) [Vol rate/Area]Ordered By: Jamie Manrique on 09-11-2024 Estimated GFR (MDRD) Non-Af Amer 80 >60 [facility] Comment on above: mL/min/1.73m2 CKD-EP I Creatinine Equation (2020) Glomerular filtration rate ( GFR) estimation/1.73 sq m using serum, plasma, or whole bOrdered By: Jamie Manrique on 09-11-2024 GFR/1.73 sq M.predicted among non-blacks MDRD (S/P/Bld) [Vol rate/Area] 80 mL/min/{1.73_m2} >60 [facility] Comment on above: mL/min/1.73m2 CKD-EP I Creatinine Equation (2020) Glucoseon 09-11-2024 Glucose [Mass/Vol] 513 mg/dL Invalid Interpretation Code 70-99 [facility] Comment on above: Result Comment: Crit ical Result(s) Called at 1303: TO BETHILICINI by:KCLAPPER??Results read back by same. Performed By: #### L 501.0100 ####[facility] [address] [place], [address] [facility] deOrdered By: Damaris Thibodeaux on 09-11-2024 Bedside Glucose (Misc Panel) 455 mg/dL [facility] 74-106 [facility] Comment on above: MANAGEMENT OF PATIEN T CARE PER NURSING PROTOCOL Glucose [Mass/Vol] 455 mg/dL High 74-106 [facility] Comment on above: MANAGEMENT OF PATIEN T CARE PER NURSING PROTOCOL Hematocrit Auto (Bld) [Volum e fraction]Ordered By: Jamie Manrique on 09-11-2024 Hematocrit (Bld) [Volume fraction] 39.8 % 37-47 [facility] Hemoglobin measurementOrdere d By: Jamie Manrique on 09-11-2024 Hemoglobin (Bld) [Mass/Vol] 13.5 g/dL 12.0-15.0 [facility] MCV (mean corpuscular volume ) determinationOrdered By: Jamie Manrique on 09-11-2024 MCV (RBC) [Entitic vol] 89.4 fL 81-99 [facility] Mean corpuscular hemoglobin (MCH) determinationOrdered By: Jamie Manrique on 09-11-2024 MCH (RBC) [Entitic mass] 30.3 pg 27.0-32.0 [facility] Mean corpuscular hemoglobin concentration (MCHC) determinationOrdered By: Jamie Manrique on 09-11-2024 MCHC (RBC) [Mass/Vol] 33.9 g/dL 32-36 [facility] Mean platelet volume determi nationOrdered By: Jamie Manrique on 09-11-2024 Platelet mean volume (Bld) [Entitic vol] 10.7 fL 6.2-12.0 [facility] Platelet countOrdered By: Adam Manrique on 09-11-2024 Platelets (Bld) [#/Vol] 205 10*3/uL 150-450 [facility] Potassium (Unsp spec) [Mass/ Vol]Ordered By: Jamie Manrique on 09-11-2024 Potassium [Moles/Vol] 4.3 mmol/L 3.3-5.1 [facility] Comment on above: Hemolysis present, R esults could be affected. Potassium measurement (mass/ volume)Ordered By: Jamie Manrique on 09-11-2024 Potassium (Unsp spec) [Mass/Vol] 4.3 mmol/L 3.3-5.1 [facility] Comment on above: Hemolysis present, R esults could be affected. RBC Auto (Bld) [#/Vol]Ordere d By: Jamie Manrique on 09-11-2024 RBC (Bld) [#/Vol] 4.45 10*6/uL 4.2-5.[address] [facility] Serum creatinine measurement (mass/volume)Ordered By: Jamie Manrique on 09-11-2024 Creatinine [Mass/Vol] 0.87 mg/dL 0.70-1.20 [facility] Serum glucose measurement (m ass/volume)Ordered By: Damaris Thibodeaux on 09-11-2024 Glucose [Mass/Vol] 513 mg/dL High 70-99 [facility] Comment on above: Critical Result(s) C alled at 1303: TO PB by: KCLAPPKILLIAN Results read back by same. Serum or plasma calcium oliver urement (mass/volume)Ordered By: Jamie Manrique on 09-11-2024 Calcium [Mass/Vol] 8.9 mg/dL 7.6-11.0 [facility] Serum or plasma urea nitroge n measurement (mass/volume)Ordered By: Jamie Manrique on 09-11-2024 Urea nitrogen [Mass/Vol] 34 mg/dL High 4-19 [facility] Sodium levelOrdered By: Carlos Manrique on 09-11-2024 Sodium [Moles/Vol] 135 mmol/L 133-145 [facility] White blood cell (WBC) count Ordered By: Jamie Manrique on 09-11-2024 WBC (Bld) [#/Vol] 9.1 10*3/uL 4.4-11.0 [facility] Absolute lymphocyte countOrd ered By: Francine Steele on 09-10-2024 Lymphocytes Auto (Unsp spec) [#/Vol] 0.90 10*3/uL 0.83-4.51 [facility] Absolute neutrophil countOrd ered By: Francine Steele on 09-10-2024 Neutrophils (Bld) [#/Vol] 7.6 10*3/uL 2.0-7.7 [facility] Automated lymphocyte count a s percentage of total leukocytesOrdered By: Francine Steele on 09-10-2024 Lymphocytes/100 WBC Auto (Unsp spec) 10.4 % Low 19-41 [facility] Basic Metabolic Profile (BMP )on 09-10-2024 BUN/CRE 28.5 RATIO High 10-20 [facility] Comment on above: Performed By: #### L 500.2500, L501.9985, L100.0100 ####[facility] [address] [place], [address] Calcium [Mass/Vol] 9.1 mg/dL Normal 7.6-11.0 [facility] Comment on above: Performed By: #### L 500.2500, L501.9985, L100.0100 ####[facility] [address] [place], [address] Chloride [Moles/Vol] 103 mmol/L Normal 98-108 [facility] Comment on above: Performed By: #### L 500.2500, L501.9985, L100.0100 ####[facility] [address] [place], [address] CO2 [Moles/Vol] 17.8 mmol/L Low 21.0-32.0 [facility] Comment on above: Performed By: #### L 500.2500, L501.9985, L100.0100 ####[facility] [address] [place], [address] Creatinine [Mass/Vol] 0.82 mg/dL Normal 0.70-1.20 [facility] Comment on above: Performed By: #### L 500.2500, L501.9985, L100.0100 ####[facility] [facility] [address] [place], [address] ECRCL 86.74 ml/min Normal 50-250 [facility] Comment on above: Performed By: #### L 500.2500, L501.9985, L100.0100 ####[facility] [address] [place], [address] GAP 16 High 5-15 [facility] Comment on above: Performed By: #### L 500.2500, L501.9985, L100.0100 ####[facility] [address] [place], [address] GFR/1.73 sq M.predicted among non-blacks MDRD (S/P/Bld) [Vol rate/Area] 85 mL/min/{1.73_m2} Normal >60 [facility] Comment on above: Result Comment: mL/m in/1.73m2 CKD-EPI Creatinine Equation (2020) Performed By: #### L 500.2500, L501.9985, L100.0100 ####[facility] [address] [place], [address] Glucose [Mass/Vol] 315 mg/dL High 70-99 [facility] Comment on above: Performed By: #### L 500.2500, L501.9985, L100.0100 ####[facility] [address] [place], [address] Potassium [Moles/Vol] 3.4 mmol/L Normal 3.3-5.1 [facility] [place] Comment on above: Performed By: #### L 500.2500, L501.9985, L100.0100 ####[facility] [address] [place], [address] Sodium [Moles/Vol] 137 mmol/L Normal 133-145 [facility] Comment on above: Performed By: #### L 500.2500, L501.9985, L100.0100 ####[facility] [address] [place], [address] Urea nitrogen [Mass/Vol] 23 mg/dL High 4-19 [facility] Comment on above: Performed By: #### L 500.2500, L501.9985, L100.0100 ####[facility] [address] [place], [address] Basophil percentageOrdered B y: Francine Steele on 09-10-2024 Basophils/100 WBC (Bld) 0.1 % 0-1 [facility] Bedside Glucoseon 09-10-2024 FINGERSTICK GLU 305 mg/dL High 74-106 [facility] Comment on above: Result Comment: HILDA GEMENT OF PATIENT CARE PER NURSING PROTOCOL Performed By: #### L 501.080 ####[facility] [address] [place], [address] FINGERSTICK GLU 291 mg/dL High 74-106 [facility] Comment on above: Result Comment: HILDA GEMENT OF PATIENT CARE PER NURSING PROTOCOL Performed By: #### L 501.080 ####[facility] [address] [place], [address] FINGERSTICK GLU 292 mg/dL High 74-106 [facility] Comment on above: Result Comment: HILDA GEMENT OF PATIENT CARE PER NURSING PROTOCOL Performed By: #### L 501.080 ####[facility] [address] [place], [address] FINGERSTICK GLU 282 mg/dL High 74-106 [facility] Comment on above: Result Comment: HILDA GEMENT OF PATIENT CARE PER NURSING PROTOCOL Performed By: #### L 501.080 ####[facility] [address] [place], [address] CBC W/Diff, Automatedon 04-0 -2024 Absolute Lymph 0.90 X10 3/uL Normal 0.83-4.51 [facility] Comment on above: Performed By: #### L 500.2500, L501.9985, L100.0100 ####[facility] [address] [place], [address] Absolute Neut 7.6 X10 3/uL Normal 2.0-7.7 [facility] Comment on above: Performed By: #### L 500.2500, L501.9985, L100.0100 ####[facility] [address] [place], [address] Basophils/100 WBC (Bld) 0.1 % Normal 0-1 [facility] Comment on above: Performed By: #### L 500.2500, L501.9985, L100.0100 ####[facility] [address] [place], [address] Eosinophils/100 WBC (Bld) 0.0 % Normal 0-5 [facility] Comment on above: Performed By: #### L 500.2500, L501.9985, L100.0100 ####[facility] [address] [place], [address] Erythrocyte distribution width (RBC) [Ratio] 13.0 % Normal 11.6-14.6 [facility] Comment on above: Performed By: #### L 500.2500, L501.9985, L100.0100 ####[facility] [address] [place], [address] Hematocrit (Bld) [Volume fraction] 40.6 % Normal 37-47 [facility] Comment on above: Performed By: #### L 500.2500, L501.9985, L100.0100 ####[facility] [address] [place], [address] Hemoglobin (Bld) [Mass/Vol] 13.7 g/dL Normal 12.0-15.0 [facility] Comment on above: Performed By: #### L 500.2500, L501.9985, L100.0100 ####[facility] [address] [place], [address] IG% 0.500 Normal 0.0-0.9 [facility] Comment on above: Result Comment: IG% - Immature Granulocytes (promyelocytes, myelocytes andmetamyelocytes) > 1% indicates that a LEFT SHIFT is Present. Performed By: #### L 500.2500, L501.9985, L100.0100 ####[facility] [address] [place], [address] Lymphocytes/100 WBC (Bld) 10.4 % Low 19-41 [facility] Comment on above: Performed By: #### L 500.2500, L501.9985, L100.0100 ####[facility] [address] [place], [address] MCH (RBC) [Entitic mass] 30.1 pg Normal 27.0-32.0 [facility] Comment on above: Performed By: #### L 500.2500, L501.9985, L100.0100 ####[facility] [address] [place], [address] MCHC (RBC) [Mass/Vol] 33.7 g/dL Normal 32-36 [facility] [facility] [place] [facility] Comment on above: Performed By: #### L 500.2500, L501.9985, L100.0100 ####[facility] [address] [place], [address] MCV (RBC) [Entitic vol] 89.2 fL Normal 81-99 [facility] Comment on above: Performed By: #### L 500.2500, L501.9985, L100.0100 ####[facility] [address] [place], [address] Monocytes/100 WBC (Bld) 1.4 % Normal 0-10 [facility] Comment on above: Performed By: #### L 500.2500, L501.9985, L100.0100 ####[facility] [address] [place], [address] Neutrophils/100 WBC (Bld) 87.6 % High 47-70 [facility] Comment on above: Performed By: #### L 500.2500, L501.9985, L100.0100 ####[facility] [address] [place], [address] Nucleated RBC (Bld) [#/Vol] 0 10*3/uL Normal 0-5 [facility] Comment on above: Performed By: #### L 500.2500, L501.9985, L100.0100 ####[facility] [address] [place], [address] Platelet mean volume (Bld) [Entitic vol] 10.7 fL Normal 6.2-12.0 [facility] Comment on above: Performed By: #### L 500.2500, L501.9985, L100.0100 ####[facility] [address] [place], [address] Platelets (Bld) [#/Vol] 196 10*3/uL Normal 150-450 [facility] Comment on above: Performed By: #### L 500.2500, L501.9985, L100.0100 ####[facility] [address] [place], [address] RBC (Bld) [#/Vol] 4.55 10*6/uL Normal 4.2-5.[address] [facility] Comment on above: Performed By: #### L 500.2500, L501.9985, L100.0100 ####[facility] [address] [place], [address] RDW SD 42.5 fl Normal 35.1-43.9 [facility] Comment on above: Performed By: #### L 500.2500, L501.9985, L100.0100 ####[facility] [address] [place], [address] WBC (Bld) [#/Vol] 8.7 10*3/uL Normal 4.4-11.0 [facility] Comment on above: Performed By: #### L 500.2500, L501.9985, L100.0100 ####[facility] [address] [place], [address] Electrocardiogram reportOrde red By: Cr Ho on 09-10-2024 EKG study [facility] [address] [place] [address] 12 Lead EKG 09/09/24 1612 MR#: [id number] Acct: [id number] Name: PITO HENDRIX Rep #:[id number] : 1970 53 From: Cr Ho MD Attending Dr: Dr. Jamie Manrique, DO Status: ADM IN Ordering Dr: Carlos Saleem MD Date: Location: [facility] Sex: F C Admitted: 09/09/24 Test [...] Abnormal ECG Confirmed by VIC GEE, CR ([id number]), editor publications GUILLERMO LAROSE ([id number]) on 09/10/2024 9:14:14 AM Referred By: Carlos Saleem Confirmed By: CR HO MD 09/10/24 0914 Date _ Cr Ho MD CC: Dr. Carlos Saleem MD; Dr. Jamie Manrique DO; Dr. Margo Tatum DO ~ Signed [facility] Work Phone: Eosinophil percentageOrdered By: Francine Steele on 09-10-2024 Eosinophils/100 WBC (Bld) 0.0 % 0-5 [facility] Hemoglobin A1con 09-10-2024 HbA1c (Bld) [Mass fraction] 9.4 % Normal <=5.6 [facility] Comment on above: Performed By: #### L 500.2500, L501.9985, L100.0100 ####[facility] [address] [place], [place], [address] Hemoglobin A1c percentageOrd ered By: Francine Steele on 09-10-2024 HbA1c (Bld) [Mass fraction] 9.4 % >5.7 [facility] Immature granulocytes/100 WB C Auto (Bld)Ordered By: Francine Steele on 09-10-2024 Immature granulocytes/100 WBC (Bld) 0.500 % 0.0-0.9 [facility] Comment on above: IG% - Immature Granu locytes (promyelocytes, myelocytes and metamyelocytes) > 1% indicates that a LEFT SHIFT is Present. Influenza virus A and B and SARS-CoV-2 (COVID-19) and Respiratory syncytial virus RNAOrdered By: Jamie Manrique on 09-10-2024 SARS-CoV-2 (COVID-19) RNA ROSALIA+probe Ql (Unsp spec) [facility] Lymphocytes Auto (Unsp spec) [#/Vol]Ordered By: Francine Steele on 09-10-2024 Lymphocytes (Bld) [#/Vol] 0.90 10*3/uL 0.83-4.51 [facility] Lymphocytes/100 WBC Auto (Un sp spec)Ordered By: Francine Steele on 09-10-2024 Lymphocytes/100 WBC (Bld) 10.4 % Low 19-41 [facility] M100.678on 09-10-2024 M100.678 Pending SARS-CoV-2 (COVID 19) Negative INFLUENZA A Negative INFLUENZA B Negative RSV PCR Negative Normal [facility] Comment on above: Performed By: #### M 100.678 ####[facility] [address] [facility] [place], [place], [id number] Monocyte percentageOrdered B y: Francine Steele on 09-10-2024 Monocytes/100 WBC (Bld) 1.4 % 0-10 [facility] Neutrophil percentageOrdered By: Francine Coopernupur on 09-10-2024 Neutrophils/100 WBC (Bld) 87.6 % High 47-70 [facility] Nucleated red blood cell per centageOrdered By: Francine Ivette on 09-10-2024 Nucleated RBC/100 WBC (Bld) [Ratio] 0 % 0-5 [facility] RESPIRATORY PANEL MOLECULARo n 09-10-2024 RP PANEL Normal [facility] Comment on above: Performed By: #### M 100.638 ####[facility] [address] [place], [place], [id number] Respiratory pathogens DNA an d RNA panel ROSALIA+probe (Resp)Ordered By: Jamie Manrique on 09-10-2024 Respiratory Panel (PCR) [facility] Respiratory pathogens detect ion panel by molecular detection methodOrdered By: Jamie Manrique on 09-10-2024 Respiratory pathogens DNA and RNA panel ROSALIA+probe (Resp) [facility] 12 Lead EKGon 09-09-2024 12 Lead EKG Normal [facility] Absolute neutrophil countOrd ered By: Carlos Saleem on 09-09-2024 Neutrophils (Bld) [#/Vol] 4.3 10*3/uL 2.0-7.7 [facility] Anion gap in Serum or Plasma Ordered By: Carlos Saleem on 09-09-2024 Anion gap [Moles/Vol] 12 mmol/L 5-15 [facility] BUN/creatinine ratioOrdered By: Carlos Saleem on 09-09-2024 Urea nitrogen/Creatinine [Mass ratio] 22.7 mg/mg High 10-20 [facility] Basic Metabolic Profile (BMP )on 09-09-2024 BUN/CRE 22.7 RATIO High 10-20 [facility] Comment on above: Performed By: #### L 500.2500, L300.8000, L100.0100 ####[facility] [address] [place], [address] Calcium [Mass/Vol] 9.0 mg/dL Normal 7.6-11.0 [facility] Comment on above: Performed By: #### L 500.2500, L300.8000, L100.0100 ####[facility] [address] [place], [address] Chloride [Moles/Vol] 108 mmol/L Normal 98-108 [facility] Comment on above: Performed By: #### L 500.2500, L300.8000, L100.0100 ####[facility] [address] [place], [address] CO2 [Moles/Vol] 17.7 mmol/L Low 21.0-32.0 [facility] Comment on above: Performed By: #### L 500.2500, L300.8000, L100.0100 ####[facility] [address] [place], [address] Creatinine [Mass/Vol] 0.78 mg/dL Normal 0.70-1.20 [facility] Comment on above: Performed By: #### L 500.2500, L300.8000, L100.0100 ####[facility] [address] [place], [address] ECRCL 92.93 ml/min Normal 50-250 [facility] Comment on above: Performed By: #### L 500.2500, L300.8000, L100.0100 ####[facility] [address] [place], [address] GAP 12 Normal 5-15 [facility] Comment on above: Performed By: #### L 500.2500, L300.8000, L100.0100 ####[facility] [address] [place], [address] GFR/1.73 sq M.predicted among non-blacks MDRD (S/P/Bld) [Vol rate/Area] 91 mL/min/{1.73_m2} Normal >60 [facility] Comment on above: Result Comment: mL/m in/1.73m2 CKD-EPI Creatinine Equation (2020) Performed By: #### L 500.2500, L300.8000, L100.0100 ####[facility] [address] [place], [address] Glucose [Mass/Vol] 198 mg/dL High 70-99 [facility] Comment on above: Performed By: #### L 500.2500, L300.8000, L100.0100 ####[facility] [address] [place], [address] Potassium [Moles/Vol] 4.0 mmol/L Normal 3.3-5.1 [facility] Comment on above: Result Comment: Hemo lysis present, Results??could be affected.?? Performed By: #### L 500.2500, L300.8000, L100.0100 ####[facility] [address] [place], [address] Sodium [Moles/Vol] 138 mmol/L Normal 133-145 [facility] Comment on above: Performed By: #### L 500.2500, L300.8000, L100.0100 ####[facility] [address] [place], [address] Urea nitrogen [Mass/Vol] 18 mg/dL Normal 4-19 [facility] Comment on above: Performed By: #### L 500.2500, L300.8000, L100.0100 ####[facility] [address] [place], [address] Basophil percentageOrdered B y: Carlos Saleem on 09-09-2024 Basophils/100 WBC (Bld) 0.3 % 0-1 [facility] CBC W/Diff, Automatedon Absolute Lymph 1.55 X10 3/uL Normal 0.83-4.51 [facility] Comment on above: Performed By: #### L 500.2500, L300.8000, L100.0100 ####[facility] [address] [place], [address] Absolute Neut 4.3 X10 3/uL Normal 2.0-7.7 [facility] Comment on above: Performed By: #### L 500.2500, L300.8000, L100.0100 ####[facility] [address] [place], [address] Basophils/100 WBC (Bld) 0.3 % Normal 0-1 [facility] Comment on above: Performed By: #### L 500.2500, L300.8000, L100.0100 ####[facility] [address] [place], [address] Eosinophils/100 WBC (Bld) 1.0 % Normal 0-5 [facility] Comment on above: Performed By: #### L 500.2500, L300.8000, L100.0100 ####[facility] [address] [place], [address] Erythrocyte distribution width (RBC) [Ratio] 13.0 % Normal 11.6-14.6 [facility] Comment on above: Performed By: #### L 500.2500, L300.8000, L100.0100 ####[facility] [address] [place], [address] Hematocrit (Bld) [Volume fraction] 39.9 % Normal 37-47 [facility] Comment on above: Performed By: #### L 500.2500, L300.8000, L100.0100 ####[facility] [address] [place], [address] Hemoglobin (Bld) [Mass/Vol] 13.5 g/dL Normal 12.0-15.0 [facility] Comment on above: Performed By: #### L 500.2500, L300.8000, L100.0100 ####[facility] [address] [place], [address] IG% 0.200 Normal 0.0-0.9 [facility] Comment on above: Result Comment: IG% - Immature Granulocytes (promyelocytes, myelocytes andmetamyelocytes) > 1% indicates that a LEFT SHIFT is Present. Performed By: #### L 500.2500, L300.8000, L100.0100 ####[facility] [address] [place], [address] Lymphocytes/100 WBC (Bld) 25.2 % Normal 19-41 [facility] Comment on above: Performed By: #### L 500.2500, L300.8000, L100.0100 ####[facility] [address] [place], [address] MCH (RBC) [Entitic mass] 30.4 pg Normal 27.0-32.0 [facility] Comment on above: Performed By: #### L 500.2500, L300.8000, L100.0100 ####[facility] [address] [place], [address] MCHC (RBC) [Mass/Vol] 33.8 g/dL Normal 32-36 [facility] Comment on above: Performed By: #### L 500.2500, L300.8000, L100.0100 ####[facility] [address] [place], [address] MCV (RBC) [Entitic vol] 89.9 fL Normal 81-99 [facility] Comment on above: Performed By: #### L 500.2500, L300.8000, L100.0100 ####[facility] [address] [place], [address] Monocytes/100 WBC (Bld) 3.9 % Normal 0-10 [facility] Comment on above: Performed By: #### L 500.2500, L300.8000, L100.0100 ####[facility] [address] [place], [address] Neutrophils/100 WBC (Bld) 69.4 % Normal 47-70 [facility] Comment on above: Performed By: #### L 500.2500, L300.8000, L100.0100 ####[facility] [address] [place], [address] Nucleated RBC (Bld) [#/Vol] 0 10*3/uL Normal 0-5 [facility] Comment on above: Performed By: #### L 500.2500, L300.8000, L100.0100 ####[facility] [address] [place], [address] Platelet mean volume (Bld) [Entitic vol] 10.2 fL Normal 6.2-12.0 [facility] Comment on above: Performed By: #### L 500.2500, L300.8000, L100.0100 ####[facility] [address] [place], [address] Platelets (Bld) [#/Vol] 180 10*3/uL Normal 150-450 [facility] Comment on above: Performed By: #### L 500.2500, L300.8000, L100.0100 ####[facility] [address] [place], [address] RBC (Bld) [#/Vol] 4.44 10*6/uL Normal 4.2-5.[address] [facility] Comment on above: Performed By: #### L 500.2500, L300.8000, L100.0100 ####[facility] [address] [place], [address] RDW SD 42.7 fl Normal 35.1-43.9 [facility] Comment on above: Performed By: #### L 500.2500, L300.8000, L100.0100 ####[facility] [address] [place], [address] WBC (Bld) [#/Vol] 6.2 10*3/uL Normal 4.4-11.0 [facility] Comment on above: Performed By: #### L 500.2500, L300.8000, L100.0100 ####[facility] [address] [place], [address] CTA Chest W/WO Contraston CTA Chest W/WO Contrast Normal [facility] Carbon dioxide, total [Moles /volume] in Central venous bloodOrdered By: Carlos Saleem on 09-09-2024 CO2 [Moles/Vol] 17.7 mmol/L Low 21.0-32.0 [facility] Chest 1 View (Portable)on Chest 1 View (Portable) Normal [facility] Chloride assayOrdered By: Adam Saleem on 09-09-2024 Chloride [Moles/Vol] 108 mmol/L 98-108 [facility] D-Dimer Quantitative (DVT/PE )on 09-09-2024 D-DIMER QUANT 1.06 FEU/ug/m Invalid Interpretation Code 0.27-0.49 [facility] Comment on above: Result Comment: D-Di kevin ELEVATED (>0.49): Additional studies and clinicalassessments are indicated to conclude diagnosis of:Deep Vein Thrombosis (DVT) or Pulmonary Embolism (PE)CRITICAL VALUE CALLED TO Sherrie RODRIGES09/09/24 Burton Browning.RESULTS READ BACK BY SAME. Performed By: #### L 500.2500, L300.8000, L100.0100 ####[facility] [address] [place], [address] D-dimer measurement for deep venous thrombosisOrdered By: Carlos Saleem on 09-09-2024 D-Dimer Quantitative (PE/DVT) 1.06 FEU/ug/m High 0.27-0.49 [facility] Comment on above: D-Dimer ELEVATED (>0 .49): Additional studies and clinicalassessments are indicated to conclude diagnosis of:Deep Vein Thrombosis (DVT) or Pulmonary Embolism (PE)CRITICAL VALUE CALLED TO Sherrie RODRIGES09/09/24 Burton Browning.RESULTS READ BACK BY SAME. Emergency Department Summary on 09-09-2024 Emergency Department Summary Normal [facility] Eosinophil percentageOrdered By: Carlos Saleem on 09-09-2024 Eosinophils/100 WBC (Bld) 1.0 % 0-5 [facility] Erythrocyte distribution wid th (RBC) [Ratio]Ordered By: Carlos Saleem on 09-09-2024 Erythrocyte distribution width (RBC) [Entitic vol] 42.7 fL 35.1-43.9 [facility] Erythrocyte distribution wid th ratioOrdered By: Carlos Saleem on 09-09-2024 Erythrocyte distribution width (RBC) [Ratio] 13.0 % 11.6-14.6 [facility] Estimation of creatinine kenzie aranceOrdered By: Carlos Saleem on 09-09-2024 Estimated Creatinine Clearance Calc 92.93 ml/min 50-250 [facility] GFR/1.73 sq M.predicted aleksandr g non-blacks MDRD (S/P/Bld) [Vol rate/Area]Ordered By: Carlos Saleem on 09-09-2024 Estimated GFR (MDRD) Non-Af Amer 91 >60 [facility] Comment on above: mL/min/1.73m2 CKD-EP I Creatinine Equation (2020) H AND P Exam - [place] 09-09-2024 H&P Exam - Hospitalist Normal [facility] Hematocrit Auto (Bld) [Volum e fraction]Ordered By: Carlos Saleem on 09-09-2024 Hematocrit (Bld) [Volume fraction] 39.9 % 37-47 [facility] Hemoglobin measurementOrdere d By: Carlos Saleem on 09-09-2024 Hemoglobin (Bld) [Mass/Vol] 13.5 g/dL 12.0-15.0 [facility] Immature granulocytes/100 WB C Auto (Bld)Ordered By: Carlos Saleem on 09-09-2024 Immature granulocytes/100 WBC (Bld) 0.200 % 0.0-0.9 [facility] Comment on above: IG% - Immature Granu locytes (promyelocytes, myelocytes and metamyelocytes) > 1% indicates that a LEFT SHIFT is Present. L503.7505on 09-09-2024 Natriuretic peptide B (Bld) [Mass/Vol] 2124 pg/mL High <=900 [facility] Comment on above: Result Comment: Hear t Failure Unlikely: < 300 pg/mLHeart Failure Likely< 50 Years: > 450 pg/mL50-75 Years: > 900 pg/mL>75 Years: > 1800 pg/mL Performed By: #### L [id number] ####[facility] [id number] [place], [address] Lymphocytes Auto (Unsp spec) [#/Vol]Ordered By: Carlos Saleem on 09-09-2024 Lymphocytes (Bld) [#/Vol] 1.55 10*3/uL 0.83-4.51 [facility] Lymphocytes/100 WBC Auto (Un sp spec)Ordered By: Carlos Saleem on 09-09-2024 Lymphocytes/100 WBC (Bld) 25.2 % 19-41 [facility] MCV (mean corpuscular volume ) determinationOrdered By: Carlos Saleem on 09-09-2024 MCV (RBC) [Entitic vol] 89.9 fL 81-99 [facility] Mean corpuscular hemoglobin (MCH) determinationOrdered By: Carlos Saleem on 09-09-2024 MCH (RBC) [Entitic mass] 30.4 pg 27.0-32.0 [facility] Mean corpuscular hemoglobin concentration (MCHC) determinationOrdered By: Carlos Saleem on 09-09-2024 MCHC (RBC) [Mass/Vol] 33.8 g/dL 32-36 [facility] Mean platelet volume determi nationOrdered By: Carlos Saleem on 09-09-2024 Platelet mean volume (Bld) [Entitic vol] 10.2 fL 6.2-12.0 [facility] Monocyte percentageOrdered B y: Carlos Saleem on 09-09-2024 Monocytes/100 WBC (Bld) 3.9 % 0-10 [facility] Natriuretic peptide.B prohor tiffanie N-Terminal [Mass/Vol]Ordered By: Carlos Saleem on 09-09-2024 Natriuretic peptide B (Bld) [Mass/Vol] 2124 pg/mL High <900 [facility] Comment on above: Heart Failure Unlike ly: < 300 pg/mLHeart Failure Likely< 50 Years: > 450 pg/mL50-75 Years: > 900 pg/mL>75 Years: > 1800 pg/mL Natriuretic peptide.B prohor tiffanie N-Terminal [Mass/volume] in Serum or PlasmaOrdered By: Carlos Saleem on 09-09-2024 Natriuretic peptide.B prohormone N-Terminal [Mass/Vol] 2124 pg/mL High <900 [facility] Comment on above: Heart Failure Unlike ly: < 300 pg/mLHeart Failure Likely< 50 Years: > 450 pg/mL50-75 Years: > 900 pg/mL>75 Years: > 1800 pg/mL Neutrophil percentageOrdered By: Carlos Saleem on 09-09-2024 Neutrophils/100 WBC (Bld) 69.4 % 47-70 [facility] Nucleated red blood cell per centageOrdered By: Carlos Saleem on 09-09-2024 Nucleated RBC/100 WBC (Bld) [Ratio] 0 % 0-5 [facility] Platelet countOrdered By: Adam Saleem on 09-09-2024 Platelets (Bld) [#/Vol] 180 10*3/uL 150-450 [facility] Potassium (Unsp spec) [Mass/ Vol]Ordered By: Carlos Saleem on 09-09-2024 Potassium [Moles/Vol] 4.0 mmol/L 3.3-5.1 [facility] Comment on above: Hemolysis present, R esults could be affected. RBC Auto (Bld) [#/Vol]Ordere d By: Carlos Saleem on 09-09-2024 RBC (Bld) [#/Vol] 4.44 10*6/uL 4.2-5.[address] [facility] Serum creatinine measurement (mass/volume)Ordered By: Carlos Saleem on 09-09-2024 Creatinine [Mass/Vol] 0.78 mg/dL 0.70-1.20 [facility] Serum glucose measurement (m ass/volume)Ordered By: Carlos Saleem on 09-09-2024 Glucose [Mass/Vol] 198 mg/dL High 70-99 [facility] Serum or plasma calcium oliver urement (mass/volume)Ordered By: Carlos Saleem on 09-09-2024 Calcium [Mass/Vol] 9.0 mg/dL 7.6-11.0 [facility] Serum or plasma urea nitroge n measurement (mass/volume)Ordered By: Carlos Saleem on 09-09-2024 Urea nitrogen [Mass/Vol] 18 mg/dL 4-19 [facility] Sodium levelOrdered By: Carlos Saleem on 09-09-2024 Sodium [Moles/Vol] 138 mmol/L 133-145 [facility] White blood cell (WBC) count Ordered By: Carlos Saleem on 09-09-2024 WBC (Bld) [#/Vol] 6.2 10*3/uL 4.4-11.0 [facility] Direct serum free thyroxine (FT4) measurementOrdered By: Mike Tom on 07-05-2024 Free T4 [Mass/Vol] 1.03 ng/dL 0.76-1.46 [facility] Free T3on 07-05-2024 Free T3 [Mass/Vol] 3.6 pg/mL Normal 2.18-3.98 [facility] Comment on above: Performed By: #### L [id number], [id number], L506.0400 ####[facility] [id number] [place], [address] Free T4Dcrcdfu By: Vega on 07-05-2024 Free T3 [Mass/Vol] 3.6 pg/mL 2.18-3.98 [facility] Free Triiodothyronine (T3) pg/dL 3.6 pg/mL 2.18-3.98 [facility] Serum or plasma thyroid stim ulating hormone (TSH) measurement (units/volume)Ordered By: Mike Tom on 07-05-2024 TSH Qn 0.511 uIU/mL 0.358-3.740 [facility] T4 Free Directon 07-05-2024 T4 FREE DIRECT 1.03 ng/dL Normal 0.76-1.46 [facility] Comment on above: Performed By: #### L [id number], [id number], L506.0400 ####[facility] [id number] [place], [place], [address] TSH QnOrdered By: Mike salmeron on 07-05-2024 Thyroid Stimulating Hormone (TSH) 0.511 uIU/mL 0.358-3.740 [facility] Thyroid Stim Hormone (TSH)on 07-05-2024 TSH 0.511 uIU/mL Normal 0.358-3.740 [facility] Comment on above: Performed By: #### L [id number], [id number], L506.0400 ####[facility] [id number] [place], [place], [id number] Endocrinology Visit Reporton 06-13-2024 Endocrinology Visit Report Normal [facility] Laboratory - Hematology and Cell countson 06-13-2024 HbA1c (Bld) [Mass fraction] 8.7 % High 4.2-6.3 [facility] 12 Lead EKGon 05-30-2024 12 Lead EKG Normal [facility] Chest PA and Lateralon 05-30 Chest PA and Lateral Normal [facility] Emergency Department Summary on 05-30-2024 Emergency Department Summary Normal [facility] Influenza virus A and B and SARS-CoV-2 (COVID-19) and Respiratory syncytial virus RNAOrdered By: Miguel Solorio on 05-30-2024 SARS-CoV-2 (COVID-19) RNA ROSALIA+probe Ql (Unsp spec) [facility] M100.678on 05-30-2024 M100.678 Pending SARS-CoV-2 (COVID 19) Negative INFLUENZA A Negative INFLUENZA B Negative RSV PCR Negative Normal [facility] Comment on above: Performed By: #### M 100.562 ####[facility] [id number] [place], [address] Endocrinology Visit Reporton 04-04-2024 Endocrinology Visit Report Normal [facility] Basophil percentageOrdered B y: Jamie Manrique on 09-10-2023 Basophil percentage 8.3 g/dL 12.0-15.[address] [facility] Basophils (Bld) [#/Vol] 4.5 10*3/uL 4.4-11.0 [facility] Determination of erythrocyte mean corpuscular volume (MCV)Ordered By: Jamie Manrique on 09-10-2023 MCV (RBC) [Entitic vol] 100.4 fL 81-99 [facility] Erythrocyte distribution wid th ratioOrdered By: Jamie Manrique on 09-10-2023 Erythrocyte distribution width (RBC) [Ratio] 14.7 % 11.6-14.6 [facility] Erythrocyte distribution wid th standard deviationOrdered By: Jamie Manrique on 09-10-2023 Erythrocyte distribution width (RBC) [Entitic vol] 52.9 fL 35.1-43.9 [facility] Hematocrit Auto (Bld) [Volum e fraction]Ordered By: Jamie Manrique on 09-10-2023 Hematocrit (Bld) [Volume fraction] 25.7 % 37-47 [facility] No Panel InformationOrdered By: Jamie Manrique on 09-10-2023 32.4 pg 27.0-32.0 [facility] 32.3 g/dL 32-36 [facility] 199 K/mm3 150-450 [facility] 10.0 fl 6.2-12.0 [facility] RBC Auto (Bld) [#/Vol]Ordere d By: Jamie Manrique on 09-10-2023 RBC (Bld) [#/Vol] 2.56 10*6/uL 4.2-5.[address] [facility] Thin prep Papanicolaou smear with manual screeningOrdered By: Jamie Manrique on 09-10-2023 Thin prep Papanicolaou smear with manual screening 190 mg/dL 74-106 [facility] Basophil percentageOrdered B y: Berenice [...] Berenice Short on 09-09-2023 96 mL/min >60 [facility] 116 mL/min >60 [facility] 106.91 ml/min [facility] 30.8 RATIO 10-20 [facility] 23.0 mmol/L 21.0-32.0 [facility] Serum or plasma calcium oliver urement (mass/volume)Ordered By: Berenice Short on 09-09-2023 Calcium [Mass/Vol] 8.6 mg/dL 8.5-10.1 [facility] Serum or plasma creatinine m easurement (mass/volume)Ordered By: Berenice Short on 09-09-2023 Creatinine [Mass/Vol] 0.68 mg/dL 0.55-1.02 [facility] Serum or plasma urea nitroge n measurement (mass/volume)Ordered By: Berenice Short on 09-09-2023 Urea nitrogen [Mass/Vol] 21 mg/dL 7-18 [facility] Thin prep Papanicolaou smear with manual screeningOrdered By: Berenice Short on 09-09-2023 Thin prep Papanicolaou smear with manual screening 5 5-15 [facility] Iron measurement (mass/mass) Ordered By: Jamie Manrique on 09-08-2023 Iron (Unsp spec) [Mass/Mass] 40 ug/dL 50-170 [facility] No Panel InformationOrdered By: Jamie Manrique on 09-08-2023 286 ug/dL 250-450 [facility] 71 ng/mL 8-252 [facility] Serum or plasma iron saturat ion measurement (mass fraction)Ordered By: Jamie Manrique on 09-08-2023 Iron saturation [Mass fraction] 14.0 % 15.0-55.0 [facility] Absolute lymphocyte countOrd ered By: Navdeep Bourgeois on 09-07-2023 Lymphocytes Auto (Unsp spec) [#/Vol] 2.01 10*3/uL 0.83-4.51 [facility] Automated lymphocyte count a s percentage of total leukocytesOrdered By: Navdeep Bourgeois on 09-07-2023 Lymphocytes/100 WBC Auto (Unsp spec) 34.1 % 19-41 [facility] Basophil percentageOrdered B y: Navdeep Bourgeois on 09-07-2023 Basophils (Bld) [#/Vol] 3.3 10*3/uL 2.0-7.7 [facility] Basophils/100 WBC (Bld) 56.1 % 47-70 [facility] Basophils/100 WBC (Bld) 8.1 % 0-10 [facility] Basophils/100 WBC (Bld) 1.0 % 0-5 [facility] Basophils/100 WBC (Bld) 0.2 % 0-1 [facility] Immature granulocytes/100 WB C Auto (Bld)Ordered By: Navdeep Bourgeois on 09-07-2023 Immature granulocytes/100 WBC (Bld) 0.500 % 0.0-0.9 [facility] No Panel InformationOrdered By: Navdeep Bourgeois on 09-07-2023 0 % 0-5 [facility] Absolute lymphocyte countOrd ered By: Terry Arzate on 09-06-2023 Lymphocytes Auto (Unsp spec) [#/Vol] 1.73 10*3/uL 0.83-4.51 [facility] Automated lymphocyte count a s percentage of total leukocytesOrdered By: Terry Arzate on 09-06-2023 Lymphocytes/100 WBC Auto (Unsp spec) 24.9 % 19-41 [facility] Bacteria identified Cx Nom ( U)Ordered By: Navdeep Bourgeois on 09-06-2023 Culture, urine Enterococcus faecalis [facility] Basophil percentageOrdered B y: Terry Arzate on 09-06-2023 Basophil percentage 0 SEEN /hpf 0-5 [facility] Basophils/100 WBC (Bld) 0.1 % 0-1 [facility] Chloride [Moles/Vol] 110 mmol/L 98-[address] [facility] Eosinophils/100 WBC (Bld) 0.6 % 0-5 [facility] Glucose [Mass/Vol] 169 mg/dL 74-106 [facility] Comment on above: Fasting Glucose resu lt greater than or equal to 126 mg/dL suggests DIABETES MELLITUS per A.D.A. criteria. Hemoglobin (Bld) [Mass/Vol] 10.2 g/dL 12.0-15.0 [facility] Monocytes/100 WBC (Bld) 7.2 % 0-10 [facility] Neutrophils (Bld) [#/Vol] 4.7 10*3/uL 2.0-7.7 [facility] Neutrophils/100 WBC (Bld) 66.9 % 47-70 [facility] Potassium [Moles/Vol] 3.9 mmol/L 3.5-5.1 [facility] Sodium [Moles/Vol] 137 mmol/L 136-145 [facility] WBC (Bld) [#/Vol] 7.0 10*3/uL 4.4-11.0 [facility] Bilirubin Test strip Ql (U)O rdered By: Terry Arzate on 09-06-2023 Bilirubin Ql (U) Negative Negative [facility] Determination of erythrocyte mean corpuscular volume (MCV)Ordered By: Terry Arzate on 09-06-2023 MCV (RBC) [Entitic vol] 98.1 fL 81-99 [facility] Erythrocyte distribution wid th ratioOrdered By: Terryrosario Arzate on 09-06-2023 Erythrocyte distribution width (RBC) [Ratio] 14.8 % 11.6-14.6 [facility] Erythrocyte distribution wid th standard deviationOrdered By: Terryrosario Arzate on 09-06-2023 Erythrocyte distribution width (RBC) [Entitic vol] 51.8 fL 35.1-43.9 [facility] Hematocrit Auto (Bld) [Volum e fraction]Ordered By: Terry Arzate on 09-06-2023 Hematocrit (Bld) [Volume fraction] 31.1 % 37-47 [facility] Immature granulocytes/100 WB C Auto (Bld)Ordered By: Terry Arzate on 09-06-2023 Immature granulocytes/100 WBC (Bld) 0.300 % 0.0-0.9 [facility] Comment on above: IG% - Immature Granu locytes (promyelocytes, myelocytes and metamyelocytes) > 1% indicates that a LEFT SHIFT is Present. Ketones Test strip Ql (U)Ord ered By: Terry Arzate on 09-06-2023 Ketones Ql (U) Negative Negative [facility] Laboratory - Chemistry and C hemistry - challengeOrdered By: Terry Arzate on 09-06-2023 CO2 [Moles/Vol] 20.0 mmol/L 21.0-32.0 [facility] Urea nitrogen/Creatinine [Mass ratio] 35.5 mg/mg 10-20 [facility] Laboratory - Hematology and Cell countsOrdered By: Terry Arzate on 09-06-2023 MCH (RBC) [Entitic mass] 32.2 pg 27.0-32.0 [facility] MCHC (RBC) [Mass/Vol] 32.8 g/dL 32-36 [facility] Nucleated RBC/100 WBC (Bld) [Ratio] 0 % 0-5 [facility] Platelet mean volume (Bld) [Entitic vol] 9.8 fL 6.2-12.0 [facility] Platelets (Bld) [#/Vol] 220 10*3/uL 150-450 [facility] Mucus LM Ql (Urine sed)Order ed By: Terry Arzate on 09-06-2023 Mucus Ql (Urine sed) 0 SEEN /hpf [facility] Nitrite Test strip Ql (U)Ord ered By: Terry Arzate on 09-06-2023 Nitrite Ql (U) Negative Negative [facility] No Panel InformationOrdered By: Terry Arzate on 09-06-2023 Urine RBC 50-100 SEEN /hpf 0-5 [facility] 50-100 SEEN /hpf 0-5 [facility] Estimated Creatinine Clearance Calc 86.50 ml/min [facility] Estimated GFR (MDRD) Amer 90 mL/min >60 [facility] Comment on above: GFR Calc Estimated GFR (MDRD) Non-Af Amer 75 mL/min >60 [facility] Comment on above: Non- GFR Calc No Panel InformationOrdered By: Navdeep Bourgeois on 04-02-2024 15.1 SECONDS 11.7-14.9 [facility] 1.2 [facility] Protein Test strip Ql (U)Ord ered By: Terry Arzate on 09-06-2023 Protein Ql (U) 500 mg/dl Negative [facility] RBC Auto (Bld) [#/Vol]Ordere d By: Terry Arzate on 09-06-2023 RBC (Bld) [#/Vol] 3.17 10*6/uL 4.2-5.[address] [facility] Serum or plasma calcium oliver urement (mass/volume)Ordered By: Terry Arzate on 09-06-2023 Calcium [Mass/Vol] 8.5 mg/dL 8.5-10.1 [facility] Serum or plasma creatinine m easurement (mass/volume)Ordered By: Terry Arzate on 09-06-2023 Creatinine [Mass/Vol] 0.84 mg/dL 0.55-1.02 [facility] Comment on above: The validity of the calculated GFR & GFRAA in patients over 70 years has not been determined. Clinical correlation is essential. Serum or plasma urea nitroge n measurement (mass/volume)Ordered By: Terry Arzate on 09-06-2023 Urea nitrogen [Mass/Vol] 30 mg/dL 7-18 [facility] Squamous epithelial cells de tection in urine sediment by light microscopyOrdered By: Terry Arzate on 09-06-2023 Epithelial cells.squamous LM Ql (Urine sed) 0 SEEN /hpf 5-10 [facility] Thin prep Papanicolaou smear with manual screeningOrdered By: Terry Arzate on 09-06-2023 Thin prep Papanicolaou smear with manual screening 7 5-15 [facility] Urine blood detectionOrdered By: Terry Arzate on 09-06-2023 RBC Ql (U) 250 /ul Negative [facility] Urine clarityOrdered By: Terry Arzate on 09-06-2023 Clarity (U) Turbid Clear [facility] Urine color determinationOrd ered By: Terry Arzate on 09-06-2023 Color (U) Red Yellow [facility] Urine glucose detectionOrder ed By: Terry Arzate on 09-06-2023 Glucose Ql (U) 250 mg/dl Normal [facility] Urine leukocyte esterase det ection by dipstickOrdered By: Terry Arzate on 09-06-2023 Leukocyte esterase Test strip Ql (U) Negative Negative [facility] Urine pHOrdered By: Terry ponce on 09-06-2023 pH (U) 7.0 [pH] 5.0 - 8.0 [facility] Urine sediment bacteria coun t by microscopy (number/high power field)Ordered By: Terry Arzate on 09-06-2023 Bacteria LM.HPF (Urine sed) [#/Area] 0 /[HPF] None Seen [facility] Urine specific gravity measu rementOrdered By: Terryrosario Arzate on 09-06-2023 Specific gravity (U) [Rel density] 1.010 1.002-1.030 [facility] Urine urobilinogen measureme ntOrdered By: Terryrosario Arzate on 09-06-2023 Urobilinogen Ql (U) Normal mg/dl Normal [facility] Basophil percentageOrdered B y: Damaris Thibodeaux on 08-29-2023 Basophil percentage 9.7 g/dL 12.0-15.[address] [facility] Hemoglobin (Bld) [Mass/Vol] 9.7 g/dL 12.0-15.0 [facility] Basophil percentage 2.8 mg/dL 2.5-4.[address] [facility] Basophil percentage 245 mg/dL 74-[address] [facility] Basophil percentage 140 mmol/L 136-[address] [facility] Basophil percentage 3.4 mmol/L 3.5-5.[address] [facility] Basophil percentage 110 mmol/L 98-[address] [facility] Chloride [Moles/Vol] 110 mmol/L 98-107 [facility] Glucose [Mass/Vol] 245 mg/dL 74-106 [facility] Comment on above: Glucose result great er than or equal to 200 mg/dLsuggests DIABETES MELLITUS per A.D.A. criteria. Potassium [Moles/Vol] 3.4 mmol/L 3.5-5.1 [facility] Sodium [Moles/Vol] 140 mmol/L 136-145 [facility] Hematocrit Auto (Bld) [Volum e fraction]Ordered By: Aidan Staples on 08-29-2023 Hematocrit (Bld) [Volume fraction] 29.5 % 37-47 [facility] Laboratory - Chemistry and C hemistry - challengeOrdered By: Damaris Thibodeaux on 08-29-2023 CO2 [Moles/Vol] 24.0 mmol/L 21.0-32.0 [facility] Magnesium [Mass/Vol] 2.1 mg/dL 1.6-2.6 [facility] Urea nitrogen/Creatinine [Mass ratio] 8.6 mg/mg 10-20 [facility] No Panel InformationOrdered By: Damaris Thibodeaux on 08-29-2023 Estimated Creatinine Clearance Calc 89.80 ml/min [facility] Estimated GFR (MDRD) Amer 95 mL/min >60 [facility] Comment on above: GFR Calc Estimated GFR (MDRD) Non-Af Amer 78 mL/min >60 [facility] Comment on above: Non- GFR Calc 78 mL/min >60 [facility] 95 mL/min >60 [facility] 89.80 ml/min [facility] 8.6 RATIO 10- [facility] 2.1 mg/dL 1.6-2.6 [facility] 24.0 mmol/L 21.0-32.0 [facility] Serum or plasma calcium oliver urement (mass/volume)Ordered By: Damaris Thibodeaux on 08-29-2023 Calcium [Mass/Vol] 8.4 mg/dL 8.5-10.1 [facility] Serum or plasma creatinine m easurement (mass/volume)Ordered By: Damaris Thibodeaux on 08-29-2023 Creatinine [Mass/Vol] 0.81 mg/dL 0.55-1.02 [facility] Comment on above: The validity of the calculated GFR & GFRAA in patients over 70 years has not been determined. Clinical correlation is essential. Serum or plasma urea nitroge n measurement (mass/volume)Ordered By: Damaris Thibodeaux on 08-29-2023 Urea nitrogen [Mass/Vol] 7 mg/dL 7-18 [facility] Thin prep Papanicolaou smear with manual screeningOrdered By: Damaris Thibodeaux on 08-29-2023 Thin prep Papanicolaou smear with manual screening 225 mg/dL 74-106 [facility] Comment on above: MANAGEMENT OF PATIEN T CARE PER NURSING PROTOCOL Thin prep Papanicolaou smear with manual screening 6 5-15 [facility] Absolute lymphocyte countOrd ered By: White on 08-27-2023 Lymphocytes Auto (Unsp spec) [#/Vol] 1.71 10*3/uL 0.83-4.51 [facility] Automated lymphocyte count a s percentage of total leukocytesOrdered By: White on 08-27-2023 Lymphocytes/100 WBC Auto (Unsp spec) 38.4 % 19-41 [facility] Basophil percentageOrdered B y: White on 08-27-2023 Basophil percentage 6.1 g/dL 6.4-8.[address] [facility] Basophil percentage 0.50 mg/dL 0.20-1.[address] [facility] Basophils (Bld) [#/Vol] 4.5 10*3/uL 4.4-11.0 [facility] Basophils (Bld) [#/Vol] 2.1 10*3/uL 2.0-7.7 [facility] Basophils/100 WBC (Bld) 0.2 % 0-1 [facility] Basophils/100 WBC (Bld) 48.2 % 47-70 [facility] Basophils/100 WBC (Bld) 11.2 % 0-10 [facility] Basophils/100 WBC (Bld) 1.8 % 0-5 [facility] Bilirubin [Mass/Vol] 0.50 mg/dL 0.20-1.00 [facility] Comment on above: For patients on eltr ombopag therapy, use of Dimension [place] TBIL is not recommended. Eosinophils/100 WBC (Bld) 1.8 % 0-5 [facility] Monocytes/100 WBC (Bld) 11.2 % 0-10 [facility] Neutrophils (Bld) [#/Vol] 2.1 10*3/uL 2.0-7.7 [facility] Neutrophils/100 WBC (Bld) 48.2 % 47-70 [facility] Protein [Mass/Vol] 6.1 g/dL 6.4-8.2 [facility] WBC (Bld) [#/Vol] 4.5 10*3/uL 4.4-11.0 [facility] Determination of erythrocyte mean corpuscular volume (MCV)Ordered By: Perlita Gómez on 08-27-2023 MCV (RBC) [Entitic vol] 95.7 fL 81-99 [facility] Erythrocyte distribution wid th ratioOrdered By: Perlita Dalia on 08-27-2023 Erythrocyte distribution width (RBC) [Ratio] 14.0 % 11.6-14.6 [facility] Erythrocyte distribution wid th standard deviationOrdered By: Perlita Dalia on 08-27-2023 Erythrocyte distribution width (RBC) [Entitic vol] 49.1 fL 35.1-43.9 [facility] Immature granulocytes/100 WB C Auto (Bld)Ordered By: [facility] Dalia on 08-27-2023 Immature granulocytes/100 WBC (Bld) 0.200 % 0.0-0.9 [facility] Comment on above: IG% - Immature Granu locytes (promyelocytes, myelocytes and metamyelocytes) > 1% indicates that a LEFT SHIFT is Present. Laboratory - Chemistry and C hemistry - challengeOrdered By: [facility] Dalia on 08-27-2023 Albumin/Globulin [Mass ratio] 0.9 {ratio} 0.9-2.4 [facility] ALP [Catalytic activity/Vol] 71 U/L 45-117 [facility] ALT [Catalytic activity/Vol] 16 U/L 13-56 [facility] Globulin (S) [Mass/Vol] 3.2 g/dL 2.2-4.2 [facility] Laboratory - Hematology and Cell countsOrdered By: [facility] Dalia on 08-27-2023 MCH (RBC) [Entitic mass] 31.2 pg 27.0-32.0 [facility] MCHC (RBC) [Mass/Vol] 32.6 g/dL 32-36 [facility] Nucleated RBC/100 WBC (Bld) [Ratio] 0 % 0-5 [facility] Platelet mean volume (Bld) [Entitic vol] 9.9 fL 6.2-12.0 [facility] Platelets (Bld) [#/Vol] 212 10*3/uL 150-450 [facility] No Panel InformationOrdered By: [facility] Dalia on 08-27-2023 31.2 pg 27.0-32.0 [facility] 32.6 g/dL 32-36 [facility] 212 K/mm3 150-450 [facility] 9.9 fl 6.2-12.0 [facility] 0 % 0-5 [facility] 3.2 g/dL 2.2-4.2 [facility] 0.9 RATIO 0.9-2.4 [facility] 71 U/L 45-117 [facility] 16 U/L 13-56 [facility] RBC Auto (Bld) [#/Vol]Ordere d By: Perlita Gómez on 08-27-2023 RBC (Bld) [#/Vol] 3.27 10*6/uL 4.2-5.[address] [facility] Thin prep Papanicolaou smear with manual screeningOrdered By: Perlita Dalia on 08-27-2023 Thin prep Papanicolaou smear with manual screening 2.9 g/dL 3.2-5.0 [facility] Thin prep Papanicolaou smear with manual screening 13 U/L 15-37 [facility] Absolute lymphocyte countOrd ered By: Rell Loera on 08-26-2023 Lymphocytes Auto (Unsp spec) [#/Vol] 1.31 10*3/uL 0.83-4.51 [facility] Automated lymphocyte count a s percentage of total leukocytesOrdered By: Rell Loera on 08-26-2023 Lymphocytes/100 WBC Auto (Unsp spec) 25.5 % 19-41 [facility] Bacteria identified Cx Nom ( U)Ordered By: Rell Loera on 08-26-2023 Culture, urine Escherichia coli [facility] Culture, urine Lactobacillus gasseri [facility] Basophil percentageOrdered B y: Rell Loera on 08-26-2023 Basophil percentage 0 SEEN /hpf 0-5 [facility] Basophils/100 WBC (Bld) 0.2 % 0-1 [facility] Chloride [Moles/Vol] 111 mmol/L 98-107 [facility] Eosinophils/100 WBC (Bld) 1.2 % 0-5 [facility] Glucose [Mass/Vol] 179 mg/dL 74-106 [facility] Comment on above: Fasting Glucose resu lt greater than or equal to 126 mg/dL suggests DIABETES MELLITUS per A.D.A. criteria. Hemoglobin (Bld) [Mass/Vol] 12.4 g/dL 12.0-15.0 [facility] Monocytes/100 WBC (Bld) 6.6 % 0-10 [facility] Neutrophils (Bld) [#/Vol] 3.4 10*3/uL 2.0-7.7 [facility] Neutrophils/100 WBC (Bld) 66.1 % 47-70 [facility] Potassium [Moles/Vol] 3.1 mmol/L 3.5-5.1 [facility] Sodium [Moles/Vol] 141 mmol/L 136-145 [facility] WBC (Bld) [#/Vol] 5.1 10*3/uL 4.4-11.0 [facility] Bilirubin Test strip Ql (U)O rdered By: Rell Loera on 08-26-2023 Bilirubin Ql (U) Negative Negative [facility] Culture, urineOrdered By: Nataliya Loera on 08-26-2023 Bacteria identified Cx Nom (U) Escherichia coli [facility] Bacteria identified Cx Nom (U) Lactobacillus gasseri [facility] Determination of erythrocyte mean corpuscular volume (MCV)Ordered By: Rell Loera on 08-26-2023 MCV (RBC) [Entitic vol] 94.3 fL 81-99 [facility] Erythrocyte distribution wid th ratioOrdered By: Rell Loera on 08-26-2023 Erythrocyte distribution width (RBC) [Ratio] 13.6 % 11.6-14.6 [facility] Erythrocyte distribution wid th standard deviationOrdered By: Rell Loera on 08-26-2023 Erythrocyte distribution width (RBC) [Entitic vol] 46.1 fL 35.1-43.9 [facility] Hematocrit Auto (Bld) [Volum e fraction]Ordered By: Rell Loera on 08-26-2023 Hematocrit (Bld) [Volume fraction] 38.2 % 37-47 [facility] Immature granulocytes/100 WB C Auto (Bld)Ordered By: Rell Loera on 08-26-2023 Immature granulocytes/100 WBC (Bld) 0.400 % 0.0-0.9 [facility] Comment on above: IG% - Immature Granu locytes (promyelocytes, myelocytes and metamyelocytes) > 1% indicates that a LEFT SHIFT is Present. Ketones Test strip Ql (U)Ord ered By: Rell Loera on 08-26-2023 Ketones Ql (U) Negative Negative [facility] Laboratory - Chemistry and C hemistry - challengeOrdered By: Rell Loera on 08-26-2023 CO2 [Moles/Vol] 23.0 mmol/L 21.0-32.0 [facility] Urea nitrogen/Creatinine [Mass ratio] 23.2 mg/mg 10-20 [facility] Laboratory - Chemistry and C hemistry - challengeOrdered By: Perlita Gómez on 08-26-2023 Magnesium [Mass/Vol] 2.1 mg/dL 1.6-2.6 [facility] Laboratory - Hematology and Cell countsOrdered By: Rell Loera on 08-26-2023 MCH (RBC) [Entitic mass] 30.6 pg 27.0-32.0 [facility] MCHC (RBC) [Mass/Vol] 32.5 g/dL 32-36 [facility] Nucleated RBC/100 WBC (Bld) [Ratio] 0 % 0-5 [facility] Platelet mean volume (Bld) [Entitic vol] 9.9 fL 6.2-12.0 [facility] Platelets (Bld) [#/Vol] 222 10*3/uL 150-450 [facility] Mucus LM Ql (Urine sed)Order ed By: Rell Loera on 08-26-2023 Mucus Ql (Urine sed) 0 SEEN /hpf [facility] Nitrite Test strip Ql (U)Ord ered By: Rell Loera on 08-26-2023 Nitrite Ql (U) Negative Negative [facility] No Panel InformationOrdered By: Rell Loera on 08-26-2023 Urine RBC > 100 SEEN /hpf 0-5 [facility] > 100 SEEN /hpf 0-5 [facility] Estimated Creatinine Clearance Calc 84.14 ml/min [facility] Estimated GFR (MDRD) Amer 88 mL/min >60 [facility] Comment on above: GFR Calc Estimated GFR (MDRD) Non-Af Amer 73 mL/min >60 [facility] Comment on above: Non- GFR Calc Protein Test strip Ql (U)Ord ered By: Rell Loera on 08-26-2023 Protein Ql (U) 500 mg/dl Negative [facility] RBC Auto (Bld) [#/Vol]Ordere d By: Rell Loera on 08-26-2023 RBC (Bld) [#/Vol] 4.05 10*6/uL 4.2-5.[address] [facility] Serum or plasma calcium oliver urement (mass/volume)Ordered By: Rell Loera on 08-26-2023 Calcium [Mass/Vol] 9.4 mg/dL 8.5-10.1 [facility] Serum or plasma creatinine m easurement (mass/volume)Ordered By: Rell Loera on 08-26-2023 Creatinine [Mass/Vol] 0.86 mg/dL 0.55-1.02 [facility] Comment on above: The validity of the calculated GFR & GFRAA in patients over 70 years has not been determined. Clinical correlation is essential. Serum or plasma urea nitroge n measurement (mass/volume)Ordered By: Rell Loera on 08-26-2023 Urea nitrogen [Mass/Vol] 20 mg/dL 7-18 [facility] Squamous epithelial cells de tection in urine sediment by light microscopyOrdered By: Rell Loera on 08-26-2023 Epithelial cells.squamous LM Ql (Urine sed) 0 SEEN /hpf 5-10 [facility] Thin prep Papanicolaou smear with manual screeningOrdered By: Rell Loera on 08-26-2023 Thin prep Papanicolaou smear with manual screening 7 5-15 [facility] Urine blood detectionOrdered By: Rell Loera on 08-26-2023 RBC Ql (U) 150 /ul Negative [facility] Urine clarityOrdered By: Senthil Loera on 08-26-2023 Clarity (U) Turbid Clear [facility] Urine color determinationOrd ered By: Rell Loera on 08-26-2023 Color (U) Red Yellow [facility] Urine glucose detectionOrder ed By: Rell Loera on 08-26-2023 Glucose Ql (U) 250 mg/dl Normal [facility] Urine leukocyte esterase det ection by dipstickOrdered By: Rell Loera on 08-26-2023 Leukocyte esterase Test strip Ql (U) Negative Negative [facility] Urine pHOrdered By: Rell Loera on 08-26-2023 pH (U) 7.0 [pH] 5.0 - 8.0 [facility] Urine sediment bacteria coun t by microscopy (number/high power field)Ordered By: Rell Loera on 08-26-2023 Bacteria LM.HPF (Urine sed) [#/Area] 2 /[HPF] None Seen [facility] Urine specific gravity measu rementOrdered By: Rell Loera on 08-26-2023 Specific gravity (U) [Rel density] 1.010 1.002-1.030 [facility] Urine urobilinogen measureme ntOrdered By: Rell Loera on 08-26-2023 Urobilinogen Ql (U) Normal mg/dl Normal [facility] Basophil percentageOrdered B y: Mike Tom on 08-11-2023 Basophil percentage 143 mg/dL <[address] [facility] Basophil percentage 221 mg/dL <[address] [facility] Cholesterol [Mass/Vol] 143 mg/dL <200 [facility] Comment on above: <200 mg/dL Desirable 200-240 mg/dL Borderline >240 mg/dL High Risk Triglyceride [Mass/Vol] 221 mg/dL <199 [facility] Comment on above: The drugs N-Acetylcy steine and Metamizole may falsely depress this assay.Serum Triglycerides Reference Interval Normal <150 mg/dL Borderline high 150 - 199 mg/dL High 200 - 499 mg/dL Very High > or = 500 mg/dL Laboratory - Chemistry and C hemistry - challengeOrdered By: Mike Tom on 08-11-2023 Cholesterol in HDL [Mass/Vol] 51 mg/dL >40 [facility] Comment on above: The drugs N-Acetylcy steine and Metamizole may falsely depress this assay. Reference Range HDL <40 mg/dL Low HDL Cholesterol HDL >or= 60 mg/dL High HDL Cholesterol Cholesterol in LDL [Mass/Vol] 48 mg/dL 0-130 [facility] Laboratory - Hematology and Cell countson 08-11-2023 HbA1c (Bld) [Mass fraction] 7.6 % 4.2-6.3 [facility] No Panel InformationOrdered By: Mike Tom on 08-11-2023 Free Triiodothyronine (T3) pg/dL 3.5 pg/mL 2.18-3.98 [facility] Vitamin D 25-Hydroxy 20.5 ng/mL [facility] Comment on above: Vitamin D 25(OH) Sta tus Range Deficiency <20 ng/mL (50nmol/L) Insufficiency 20 - 30 ng/mL (50 - 75 nmol/L) Sufficiency 30 - 100 ng/mL (75 - 250 nmol/L) Toxicity >100 ng/mL (>250 nmol/L) VLDL Cholesterol 44 mg/dL 5-40 [facility] 51 mg/dL >40 [facility] 48 mg/dL 0-130 [facility] 44 mg/dL 5-40 [facility] 3.5 pg/mL 2.18-3.98 [facility] 20.5 ng/mL [facility] No Panel Informationon 08-10 7.6 % 4.2-6.3 [facility] Serum or plasma thyroid stim ulating hormone (TSH) measurement (units/volume)Ordered By: Mike Tom on 08-11-2023 TSH Qn 0.26 uIU/mL 0.358-3.74 [facility] Thin prep Papanicolaou smear with manual screeningOrdered By: Mike Tom on 08-11-2023 Thin prep Papanicolaou smear with manual screening 1.20 ng/dL 0.76-1.46 [facility] Absolute lymphocyte countOrd ered By: Allen Meraz on 08-02-2023 Lymphocytes Auto (Unsp spec) [#/Vol] 1.73 10*3/uL 0.83-4.51 [facility] Automated lymphocyte count a s percentage of total leukocytesOrdered By: Allen Meraz on 08-02-2023 Lymphocytes/100 WBC Auto (Unsp spec) 28.1 % 19-41 [facility] Basophil percentageOrdered B y: Allen [...] [facility] Basophils (Bld) [#/Vol] 6.2 10*3/uL 4.4-11.0 [facility] Basophils (Bld) [#/Vol] 4.0 10*3/uL 2.0-7.7 [facility] Basophils/100 WBC (Bld) 0.3 % 0-1 [facility] Basophils/100 WBC (Bld) 64.8 % 47-70 [facility] Basophils/100 WBC (Bld) 5.7 % 0-10 [facility] Basophils/100 WBC (Bld) 0.8 % 0-5 [facility] Chloride [Moles/Vol] 109 mmol[facility]L 98-[facility] Eosinophils/100 WBC (Bld) 0.8 % 0-5 [facility] Glucose [Mass/Vol] 209 mg/dL 74-106 [facility] Comment on above: Glucose result great er than or equal to 200 mg/dLsuggests DIABETES MELLITUS per A.D.A. criteria. Hemoglobin (Bld) [Mass/Vol] 13.0 g/dL 12.0-15.0 [facility] Monocytes/100 WBC (Bld) 5.7 % 0-10 [facility] Neutrophils (Bld) [#/Vol] 4.0 10*3/uL 2.0-7.7 [facility] Neutrophils/100 WBC (Bld) 64.8 % 47-70 [facility] Potassium [Moles/Vol] 3.4 mmol/L 3.5-5.1 [facility] Sodium [Moles/Vol] 138 mmol/L 136-145 [facility] WBC (Bld) [#/Vol] 6.2 10*3/uL 4.4-11.0 [facility] Determination of erythrocyte mean corpuscular volume (MCV)Ordered By: Allen Meraz on 08-02-2023 MCV (RBC) [Entitic vol] 94.2 fL 81-99 [facility] Erythrocyte distribution wid th ratioOrdered By: Allen Meraz on 08-02-2023 Erythrocyte distribution width (RBC) [Ratio] 14.0 % 11.6-14.6 [facility] Erythrocyte distribution wid th standard deviationOrdered By: Allen Meraz on 08-02-2023 Erythrocyte distribution width (RBC) [Entitic vol] 48.4 fL 35.1-43.9 [facility] Hematocrit Auto (Bld) [Volum e fraction]Ordered By: Allen Meraz on 08-02-2023 Hematocrit (Bld) [Volume fraction] 38.7 % 37-47 [facility] Immature granulocytes/100 WB C Auto (Bld)Ordered By: Allen Meraz on 08-02-2023 Immature granulocytes/100 WBC (Bld) 0.300 % 0.0-0.9 [facility] Comment on above: IG% - Immature Granu locytes (promyelocytes, myelocytes and metamyelocytes) > 1% indicates that a LEFT SHIFT is Present. Laboratory - Chemistry and C hemistry - challengeOrdered By: Allen Meraz on 08-02-2023 CO2 [Moles/Vol] 23.0 mmol/L 21.0-32.0 [facility] Natriuretic peptide B (Bld) [Mass/Vol] 73.6 pg/mL 0-100 [facility] Urea nitrogen/Creatinine [Mass ratio] 23.4 mg/mg 10-20 [facility] Laboratory - Hematology and Cell countsOrdered By: [facility] on 08-02-2023 MCH (RBC) [Entitic mass] 31.6 pg 27.0-32.0 [facility] MCHC (RBC) [Mass/Vol] 33.6 g/dL 32-36 [facility] Nucleated RBC/100 WBC (Bld) [Ratio] 0 % 0-5 [facility] Platelet mean volume (Bld) [Entitic vol] 9.7 fL 6.2-12.0 [facility] Platelets (Bld) [#/Vol] 207 10*3/uL 150-450 [facility] Laboratory - Microbiology an d Antimicrobial susceptibilityOrdered By: [facility] Mer[facility] on 08-02-2023 SARS-CoV-2 (COVID-19) RNA ROSALIA+probe Ql (Unsp spec) [facility] No Panel InformationOrdered By: Allen Meraz on 08-02-2023 Estimated Creatinine Clearance Calc 77.81 ml/min [facility] Estimated GFR (MDRD) Amer 80 mL/min >60 [facility] Comment on above: GFR Calc Estimated GFR (MDRD) Non-Af Amer 66 mL/min >60 [facility] Comment on above: Non- GFR Calc 31.6 pg 27.0-32.0 [facility] 33.6 g/dL 32-36 [facility] 207 K/mm3 150-450 [facility] 9.7 fl 6.2-12.0 [facility] 0 % 0-5 [facility] 66 mL/min >60 [facility] 80 mL/min >60 [facility] 77.81 ml/min [facility] 23.4 RATIO 10-20 [facility] 23.0 mmol/L 21.0-32.0 [facility] 73.6 pg/mL 0-100 [facility] RBC Auto (Bld) [#/Vol]Ordere d By: Allen Meraz on 08-02-2023 RBC (Bld) [#/Vol] 4.11 10*6/uL 4.2-5.[address] [facility] Serum or plasma calcium oliver urement (mass/volume)Ordered By: Allen Meraz on 08-02-2023 Calcium [Mass/Vol] 9.3 mg/dL 8.5-10.1 [facility] Serum or plasma creatinine m easurement (mass/volume)Ordered By: Allen Meraz on 08-02-2023 Creatinine [Mass/Vol] 0.94 mg/dL 0.55-1.02 [facility] Comment on above: The validity of the calculated GFR & GFRAA in patients over 70 years has not been determined. Clinical correlation is essential. Serum or plasma urea nitroge n measurement (mass/volume)Ordered By: Allen Meraz on 08-02-2023 Urea nitrogen [Mass/Vol] 22 mg/dL 7-18 [facility] Thin prep Papanicolaou smear with manual screeningOrdered By: Allen Meraz on 08-02-2023 Thin prep Papanicolaou smear with manual screening 6 5-15 [facility] Absolute lymphocyte countOrd ered By: Ryan Hidalgo on 05-18-2023 Lymphocytes Auto (Unsp spec) [#/Vol] 1.97 10*3/uL 0.83-4.51 [facility] Basophil percentageOrdered B y: Ryan Hidalgo on 05-18-2023 Basophil percentage 200 mg/dL 74-[address] [facility] Basophil percentage 140 mmol/L 136-[address] [facility] Basophil percentage 4.1 mmol/L 3.5-5.[address] [facility] Basophil percentage 111 mmol/L 98-[address] [facility] Basophils (Bld) [#/Vol] 4.6 10*3/uL 4.4-11.0 [facility] Basophils (Bld) [#/Vol] 2.3 10*3/uL 2.0-7.7 [facility] Basophils/100 WBC (Bld) 0.2 % 0-1 [facility] Basophils/100 WBC (Bld) 49.4 % 47-70 [facility] Basophils/100 WBC (Bld) 1.1 % 0-5 [facility] Chloride [Moles/Vol] 111 mmol/L 98-107 [facility] Eosinophils/100 WBC (Bld) 1.1 % 0-5 [facility] Glucose [Mass/Vol] 200 mg/dL 74-106 [facility] Comment on above: Glucose result great er than or equal to 200 mg/dLsuggests DIABETES MELLITUS per A.D.A. criteria. Neutrophils (Bld) [#/Vol] 2.3 10*3/uL 2.0-7.7 [facility] Neutrophils/100 WBC (Bld) 49.4 % 47-70 [facility] Potassium [Moles/Vol] 4.1 mmol/L 3.5-5.1 [facility] Comment on above: Moderate Hemolysis, Result may be falsely increased. Sodium [Moles/Vol] 140 mmol/L 136-145 [facility] WBC (Bld) [#/Vol] 4.6 10*3/uL 4.4-11.0 [facility] Blood erythrocytes count (nu mber/volume)Ordered By: Ryan Hidalgo on 05-18-2023 RBC (Bld) [#/Vol] 4.25 10*6/uL 4.2-5.[address] [facility] Blood hemoglobin measurement (mass/volume)Ordered By: Ryan Hidalgo on 05-18-2023 Hemoglobin (Bld) [Mass/Vol] 13.2 g/dL 12.0-15.0 [facility] Blood lymphocytes/100 leukoc ytesOrdered By: Ryan Hidalgo on 05-18-2023 Lymphocytes/100 WBC (Bld) 43.0 % 19-41 [facility] Blood monocytes/100 leukocyt esOrdered By: Ryan Hidalgo on 05-18-2023 Monocytes/100 WBC (Bld) 6.1 % 0-10 [facility] Blood platelet mean volumeOr dered By: Ryan Hidalgo on 05-18-2023 Platelet mean volume (Bld) [Entitic vol] 10.2 fL 6.2-12.0 [facility] Determination of erythrocyte mean corpuscular volume (MCV)Ordered By: Ryan Hidalgo on 05-18-2023 MCV (RBC) [Entitic vol] 95.5 fL 81-99 [facility] Glucose Glucometer (dC) [M ass/Vol]Ordered By: Ryan Hidalgo on 05-18-2023 Glucose [Mass/Vol] 97 mg/dL 74-106 [facility] Comment on above: MANAGEMENT OF PATIEN T CARE PER NURSING PROTOCOL Hematocrit Auto (Bld) [Volum e fraction]Ordered By: Ryan Hidalgo on 05-18-2023 Hematocrit (Bld) [Volume fraction] 40.6 % 37-47 [facility] Laboratory - Chemistry and C hemistry - challengeOrdered By: Ryan Hidalgo on 05-18-2023 CO2 [Moles/Vol] 25.0 mmol/L 21.0-32.0 [facility] Natriuretic peptide B (Bld) [Mass/Vol] 49.0 pg/mL 0-100 [facility] Urea nitrogen/Creatinine [Mass ratio] 29.0 mg/mg 10-20 [facility] Laboratory - Hematology and Cell countsOrdered By: Ryan Hidalgo on 05-18-2023 Erythrocyte distribution width (RBC) [Entitic vol] 47.5 fL 35.1-43.9 [facility] Erythrocyte distribution width (RBC) [Ratio] 13.5 % 11.6-14.6 [facility] Immature granulocytes/100 WBC (Bld) 0.200 % 0.0-0.9 [facility] Comment on above: IG% - Immature Granu locytes (promyelocytes, myelocytes and metamyelocytes) > 1% indicates that a LEFT SHIFT is Present. MCH (RBC) [Entitic mass] 31.1 pg 27.0-32.0 [facility] Nucleated RBC/100 WBC (Bld) [Ratio] 0 % 0-5 [facility] MCHC Auto (RBC) [Mass/Vol]Or dered By: Ryan Hidalgo on 05-18-2023 MCHC (RBC) [Mass/Vol] 32.5 g/dL 32-36 [facility] No Panel InformationOrdered By: Ryan Hidalgo on 05-18-2023 Troponin I High Sensitivity 8 pg/mL 3.0-54.0 [facility] Comment on above: Please Note: [place] t Units and Gender Specific Reference Ranges. For more information see Policy Stat Procedure [place] High Sensitivity Troponin (TNIH) and attachments. 8 pg/mL 3.0-54.0 [facility] Estimated Creatinine Clearance Calc 52.51 ml/min [facility] Estimated GFR (MDRD) Amer 69 mL/min >60 [facility] Comment on above: GFR Calc Estimated GFR (MDRD) Non-Af Amer 57 mL/min >60 [facility] Comment on above: Non- GFR Calc 31.1 pg 27.0-32.0 [facility] 13.5 % 11.6-14.6 [facility] 47.5 fl 35.1-43.9 [facility] 0.200 % 0.0-0.9 [facility] 0 % 0-5 [facility] 57 mL/min >60 [facility] 69 mL/min >60 [facility] 52.51 ml/min [facility] 29.0 RATIO 10-20 [facility] 25.0 mmol/L 21.0-32.0 [facility] 49.0 pg/mL 0-100 [facility] Platelets bldOrdered By: Liliya Hidalgo on 05-18-2023 Platelets (Bld) [#/Vol] 195 10*3/uL 150-450 [facility] Serum or plasma calcium oliver urement (mass/volume)Ordered By: Ryan Hidalgo on 05-18-2023 Calcium [Mass/Vol] 8.7 mg/dL 8.5-10.1 [facility] Serum or plasma creatinine m easurement (mass/volume)Ordered By: Ryan Hidalgo on 05-18-2023 Creatinine [Mass/Vol] 1.07 mg/dL 0.55-1.02 [facility] Comment on above: The validity of the calculated GFR & GFRAA in patients over 70 years has not been determined. Clinical correlation is essential. Serum or plasma urea nitroge n measurement (mass/volume)Ordered By: Ryan Hidalgo on 05-18-2023 Urea nitrogen [Mass/Vol] 31 mg/dL 7-18 [facility] Thin prep Papanicolaou smear with manual screeningOrdered By: Ryan Hidalgo on 05-18-2023 Thin prep Papanicolaou smear with manual screening 4 - [facility] Laboratory - Hematology and Cell countson 05-11-2023 HbA1c (Bld) [Mass fraction] 9.5 % 4.2-6.3 [facility] Laboratory - Chemistry and C hemistry - challengeOrdered By: Mike Tom on 03-08-2023 Free T4 [Mass/Vol] 0.90 ng/dL 0.76-1.46 [facility] Laboratory - Chemistry and C hemistry - challengeOrdered By: Cr Ho on 03-08-2023 Natriuretic peptide B (Bld) [Mass/Vol] 30.3 pg/mL 0-100 [facility] No Panel InformationOrdered By: Mike Tom on 03-08-2023 Free Triiodothyronine (T3) pg/dL 2.8 pg/mL 2.18-3.98 [facility] Thyroid Stimulating Hormone (TSH) 1.67 uIU/mL 0.358-3.74 [facility] Laboratory - Hematology and Cell countson 01-26-2023 HbA1c (Bld) [Mass fraction] 7.7 % 4.2-6.3 [facility] Laboratory - Drug toxicology Ordered By: Darline Solano on 12-20-2022 Amphetamines Ql (U) Negative <1000 ng/mL [facility] Benzodiazepines Ql (U) Negative < 200 ng/mL [facility] Cannabinoids Screen Ql (U) Negative < 50 ng/mL [facility] Cocaine Ql (U) Negative < 300 ng/mL [facility] Opiates Ql (U) Positive < 300 ng/mL [facility] No Panel InformationOrdered By: Darline Solano on 12-20-2022 MDMA (Ecstasy) Screen Negative < 500 ng/mL [facility] Urine Barbiturates Screen Negative < 200 ng/mL [facility] Urine Drug Screen Comment [facility] Comment on above: CONFIRMATORY TESTING [...] Urine Methadone Screen Negative < 300 ng/mL [facility] Urine phencyclidine (PCP) de tectionOrdered By: Darline Solano on 12-20-2022 Phencyclidine Ql (U) Negative < 25 ng/mL [facility] Absolute lymphocyte countOrd ered By: Dr. Alvarez on 10-18-2022 Lymphocytes Auto (Unsp spec) [#/Vol] 1.71 10*3/uL 0.83-4.51 [facility] Basophil percentageOrdered B y: Dr. Alvarez on 10-18-2022 Basophils/100 WBC (Bld) 0.4 % 0-1 [facility] Bilirubin [Mass/Vol] 0.80 mg/dL 0.20-1.00 [facility] Comment on above: For patients on eltr ombopag therapy, use of Dimension [place] TBIL is not recommended. Chloride [Moles/Vol] 113 mmol/L 98-107 [facility] Eosinophils/100 WBC (Bld) 0.5 % 0-5 [facility] Glucose [Mass/Vol] 127 mg/dL 74-106 [facility] Comment on above: Fasting Glucose resu lt greater than or equal to 126 mg/dL suggests DIABETES MELLITUS per A.D.A. criteria. Neutrophils (Bld) [#/Vol] 5.1 10*3/uL 2.0-7.7 [facility] Neutrophils/100 WBC (Bld) 68.5 % 47-70 [facility] Potassium [Moles/Vol] 3.7 mmol/L 3.5-5.1 [facility] Protein [Mass/Vol] 8.0 g/dL 6.4-8.2 [facility] Sodium [Moles/Vol] 142 mmol/L 136-145 [facility] WBC (Bld) [#/Vol] 7.4 10*3/uL 4.4-11.0 [facility] Blood erythrocytes count (nu mber/volume)Ordered By: Dr. Alvarez on 10-18-2022 RBC (Bld) [#/Vol] 4.21 10*6/uL 4.2-5.[address] [facility] Blood hemoglobin measurement (mass/volume)Ordered By: Dr. Alvarez on 10-18-2022 Hemoglobin (Bld) [Mass/Vol] 13.2 g/dL 12.0-15.0 [facility] Blood lymphocytes/100 leukoc ytesOrdered By: Dr. Alvarez on 10-18-2022 Lymphocytes/100 WBC (Bld) 23.1 % 19-41 [facility] Blood monocytes/100 leukocyt esOrdered By: Dr. Alvarez on 10-18-2022 Monocytes/100 WBC (Bld) 7.4 % 0-10 [facility] Blood platelet mean volumeOr dered By: Dr. Alvarez on 10-18-2022 Platelet mean volume (Bld) [Entitic vol] 9.5 fL 6.2-12.0 [facility] Determination of erythrocyte mean corpuscular volume (MCV)Ordered By: Dr. Alvarez on 10-18-2022 MCV (RBC) [Entitic vol] 97.9 fL 81-99 [facility] Hematocrit Auto (Bld) [Volum e fraction]Ordered By: Dr. Alvarez on 10-18-2022 Hematocrit (Bld) [Volume fraction] 41.2 % 37-47 [facility] Laboratory - Chemistry and C hemistry - challengeOrdered By: Dr. Alvarez on 10-18-2022 ALP [Catalytic activity/Vol] 107 U/L 45-117 [facility] ALT [Catalytic activity/Vol] 19 U/L 13-56 [facility] CO2 [Moles/Vol] 22.0 mmol/L 21.0-32.0 [facility] Globulin (S) [Mass/Vol] 4.0 g/dL 2.2-4.2 [facility] Lipase [Catalytic activity/Vol] 49 U/L 13-75 [facility] Comment on above: Please note:LIPASE r evised reference range effective 22. New Lipase methodology. Expected to produce lower values than the previous assay method. NEW Reference Range: 13 - 75 U/L Urea nitrogen/Creatinine [Mass ratio] 43.4 mg/mg 10-20 [facility] Laboratory - Hematology and Cell countsOrdered By: Dr. Alvarez on 10-18-2022 Erythrocyte distribution width (RBC) [Entitic vol] 51.3 fL 35.1-43.9 [facility] Erythrocyte distribution width (RBC) [Ratio] 14.6 % 11.6-14.6 [facility] Immature granulocytes/100 WBC (Bld) 0.100 % 0.0-0.9 [facility] Comment on above: IG% - Immature Granu locytes (promyelocytes, myelocytes and metamyelocytes) > 1% indicates that a LEFT SHIFT is Present. MCH (RBC) [Entitic mass] 31.4 pg 27.0-32.0 [facility] Nucleated RBC/100 WBC (Bld) [Ratio] 0 % 0-5 [facility] MCHC Auto (RBC) [Mass/Vol]Or dered By: Dr. Alvarez on 10-18-2022 MCHC (RBC) [Mass/Vol] 32.0 g/dL 32-36 [facility] No Panel InformationOrdered By: Dr. Alvarez on 10-18-2022 Estimated Creatinine Clearance Calc 70.16 ml/min [facility] Estimated GFR (MDRD) Amer 96 mL/min >60 [facility] Comment on above: GFR Calc Estimated GFR (MDRD) Non-Af Amer 79 mL/min >60 [facility] Comment on above: Non- GFR Calc Platelets bldOrdered By: Dr. Alvarez on 10-18-2022 Platelets (Bld) [#/Vol] 231 10*3/uL 150-450 [facility] Serum or plasma albumin oliver urement (mass/volume)Ordered By: Dr. Alvarez on 10-18-2022 Albumin [Mass/Vol] 4.0 g/dL 3.2-5.0 [facility] Serum or plasma albumin/glob ulin mass ratioOrdered By: Dr. Alvarez on 10-18-2022 Albumin/Globulin [Mass ratio] 1.0 {ratio} 0.9-2.4 [facility] Serum or plasma calcium oliver urement (mass/volume)Ordered By: Dr. Alvarez on 10-18-2022 Calcium [Mass/Vol] 9.1 mg/dL 8.5-10.1 [facility] Serum or plasma creatinine m easurement (mass/volume)Ordered By: Dr. Alvarez on 10-18-2022 Creatinine [Mass/Vol] 0.81 mg/dL 0.55-1.02 [facility] Comment on above: The validity of the calculated GFR & GFRAA in patients over 70 years has not been determined. Clinical correlation is essential. Serum or plasma urea nitroge n measurement (mass/volume)Ordered By: Dr. Alvarez on 10-18-2022 Urea nitrogen [Mass/Vol] 35 mg/dL 7-18 [facility] Thin prep Papanicolaou smear with manual screeningOrdered By: Dr. Alvarez on 10-18-2022 Thin prep Papanicolaou smear with manual screening 14 U/L 15-37 [facility] Thin prep Papanicolaou smear with manual screening 7 5-15 [facility] Absolute lymphocyte countOrd ered By: Dr. Meraz on 10-07-2022 Lymphocytes Auto (Unsp spec) [#/Vol] 2.01 10*3/uL 0.83-4.51 [facility] Basophil percentageOrdered B y: Dr. Meraz on 10-07-2022 Basophils/100 WBC (Bld) 0.3 % 0-1 [facility] Bilirubin [Mass/Vol] 0.40 mg/dL 0.20-1.00 [facility] Comment on above: For patients on eltr ombopag therapy, use of Dimension [place] TBIL is not recommended. Chloride [Moles/Vol] 112 mmol/L 98-107 [facility] Eosinophils/100 WBC (Bld) 1.7 % 0-5 [facility] Glucose [Mass/Vol] 216 mg/dL 74-106 [facility] Comment on above: Glucose result great er than or equal to 200 mg/dLsuggests DIABETES MELLITUS per A.D.A. criteria. Neutrophils (Bld) [#/Vol] 3.3 10*3/uL 2.0-7.7 [facility] Neutrophils/100 WBC (Bld) 56.2 % 47-70 [facility] Potassium [Moles/Vol] 3.9 mmol/L 3.5-5.1 [facility] Protein [Mass/Vol] 6.5 g/dL 6.4-8.2 [facility] Sodium [Moles/Vol] 143 mmol/L 136-145 [facility] WBC (Bld) [#/Vol] 5.8 10*3/uL 4.4-11.0 [facility] Blood erythrocytes count (nu mber/volume)Ordered By: Dr. Meraz on 10-07-2022 RBC (Bld) [#/Vol] 4.09 10*6/uL 4.2-5.[address] [facility] Blood hemoglobin measurement (mass/volume)Ordered By: Dr. Meraz on 10-07-2022 Hemoglobin (Bld) [Mass/Vol] 12.6 g/dL 12.0-15.0 [facility] Blood lymphocytes/100 leukoc ytesOrdered By: Dr. Meraz on 10-07-2022 Lymphocytes/100 WBC (Bld) 34.7 % 19-41 [facility] Blood monocytes/100 leukocyt esOrdered By: Dr. Meraz on 10-07-2022 Monocytes/100 WBC (Bld) 6.6 % 0-10 [facility] Blood platelet mean volumeOr dered By: Dr. Meraz on 10-07-2022 Platelet mean volume (Bld) [Entitic vol] 9.8 fL 6.2-12.0 [facility] Determination of erythrocyte mean corpuscular volume (MCV)Ordered By: Dr. Meraz on 10-07-2022 MCV (RBC) [Entitic vol] 94.9 fL 81-99 [facility] Hematocrit Auto (Bld) [Volum e fraction]Ordered By: Dr. Meraz on 05-04-2023 Hematocrit (Bld) [Volume fraction] 38.8 % 37-47 [facility] Laboratory - Chemistry and C hemistry - challengeOrdered By: Dr. Meraz on 10-07-2022 ALP [Catalytic activity/Vol] 92 U/L 45-117 [facility] ALT [Catalytic activity/Vol] 19 U/L 13-56 [facility] CO2 [Moles/Vol] 23.0 mmol/L 21.0-32.0 [facility] Globulin (S) [Mass/Vol] 3.3 g/dL 2.2-4.2 [facility] Lipase [Catalytic activity/Vol] 34 U/L 13-75 [facility] Comment on above: Please note:LIPASE r evised reference range effective 22. New Lipase methodology. Expected to produce lower values than the previous assay method. NEW Reference Range: 13 - 75 U/L Urea nitrogen/Creatinine [Mass ratio] 19.0 mg/mg 10-20 [facility] Laboratory - Hematology and Cell countsOrdered By: Dr. Meraz on 10-07-2022 Erythrocyte distribution width (RBC) [Entitic vol] 45.7 fL 35.1-43.9 [facility] Erythrocyte distribution width (RBC) [Ratio] 13.3 % 11.6-14.6 [facility] Immature granulocytes/100 WBC (Bld) 0.500 % 0.0-0.9 [facility] Comment on above: IG% - Immature Granu locytes (promyelocytes, myelocytes and metamyelocytes) > 1% indicates that a LEFT SHIFT is Present. MCH (RBC) [Entitic mass] 30.8 pg 27.0-32.0 [facility] Nucleated RBC/100 WBC (Bld) [Ratio] 0 % 0-5 [facility] MCHC Auto (RBC) [Mass/Vol]Or dered By: Dr. Meraz on 10-07-2022 MCHC (RBC) [Mass/Vol] 32.5 g/dL 32-36 [facility] No Panel InformationOrdered By: Dr. Meraz on 10-07-2022 Estimated Creatinine Clearance Calc 63.85 ml/min [facility] Estimated GFR (MDRD) Amer 85 mL/min >60 [facility] Comment on above: GFR Calc Estimated GFR (MDRD) Non-Af Amer 70 mL/min >60 [facility] Comment on above: Non- GFR [...] Troponin I High Sensitivity 8 pg/mL 3.0-54.0 [facility] Comment on above: Please Note: [place] t Units and Gender Specific Reference Ranges. For more information see Policy Stat Procedure [place] High Sensitivity Troponin (TNIH) and attachments. Platelets bldOrdered By: Dr. Meraz on 10-07-2022 Platelets (Bld) [#/Vol] 166 10*3/uL 150-450 [facility] Serum or plasma albumin oliver urement (mass/volume)Ordered By: Dr. Meraz on 10-07-2022 Albumin [Mass/Vol] 3.2 g/dL 3.2-5.0 [facility] Serum or plasma albumin/glob ulin mass ratioOrdered By: Dr. Meraz on 10-07-2022 Albumin/Globulin [Mass ratio] 1.0 {ratio} 0.9-2.4 [facility] Serum or plasma calcium oliver urement (mass/volume)Ordered By: Dr. Meraz on 10-07-2022 Calcium [Mass/Vol] 8.7 mg/dL 8.5-10.1 [facility] Serum or plasma creatinine m easurement (mass/volume)Ordered By: Dr. Meraz on 10-07-2022 Creatinine [Mass/Vol] 0.89 mg/dL 0.55-1.02 [facility] Comment on above: The validity of the calculated GFR & GFRAA in patients over 70 years has not been determined. Clinical correlation is essential. Serum or plasma urea nitroge n measurement (mass/volume)Ordered By: Dr. Meraz on 10-07-2022 Urea nitrogen [Mass/Vol] 17 mg/dL 7-18 [facility] Thin prep Papanicolaou smear with manual screeningOrdered By: Dr. Meraz on 10-07-2022 Thin prep Papanicolaou smear with manual screening 15 U/L 15-37 [facility] Thin prep Papanicolaou smear with manual screening 8 5-15 [facility] Basophil percentageOrdered B y: Bryan Mitchell on 10-01-2022 Chloride [Moles/Vol] 111 mmol/L 98-107 [facility] Glucose [Mass/Vol] 187 mg/dL 74-106 [facility] Comment on above: Fasting Glucose resu lt greater than or equal to 126 mg/dL suggests DIABETES MELLITUS per A.D.A. criteria. Potassium [Moles/Vol] 3.5 mmol/L 3.5-5.1 [facility] Sodium [Moles/Vol] 137 mmol/L 136-145 [facility] Laboratory - Chemistry and C hemistry - challengeOrdered By: Bryan Mitchell on 10-01-2022 CO2 [Moles/Vol] 25.0 mmol/L 21.0-32.0 [facility] Urea nitrogen/Creatinine [Mass ratio] 22.4 mg/mg 10-20 [facility] No Panel InformationOrdered By: Bryan Mitchell on 10-01-2022 Estimated GFR (MDRD) Amer 96 mL/min >60 [facility] Comment on above: GFR Calc Estimated GFR (MDRD) Non-Af Amer 79 mL/min >60 [facility] Comment on above: Non- GFR Calc Serum or plasma calcium oliver urement (mass/volume)Ordered By: Bryan Mitchell on 10-01-2022 Calcium [Mass/Vol] 8.8 mg/dL 8.5-10.1 [facility] Serum or plasma creatinine m easurement (mass/volume)Ordered By: Bryan Mitchell on 10-01-2022 Creatinine [Mass/Vol] 0.80 mg/dL 0.55-1.02 [facility] Comment on above: The validity of the calculated GFR & GFRAA in patients over 70 years has not been determined. Clinical correlation is essential. Serum or plasma urea nitroge n measurement (mass/volume)Ordered By: Bryan Mitchell on 10-01-2022 Urea nitrogen [Mass/Vol] 18 mg/dL 7-18 [facility] Thin prep Papanicolaou smear with manual screeningOrdered By: Bryan Mitchell on 10-01-2022 Thin prep Papanicolaou smear with manual screening 1 5-15 [facility] Laboratory - Hematology and Cell countson 09-23-2022 HbA1c (Bld) [Mass fraction] 8.6 % 4.2-6.3 [facility] BETA HCG, QUANT, BLOODon HCG (Quant) Serum 7.8 mIU/mL Normal [facility] Comment on above: Result Comment: Non- [...] Performed By: #### Q HCGB, CRP #### U [facility] (DEFAULT) [address] [address] BLOOD CULTUREon 09-20-2022 Bacteria identified Cx Nom (Unsp spec) NO GROWTH DAY [address] [facility] Comment on above: Order Comment: 2 Bot tles (1 Set - consists of 1 Aerobic bottle and 1 Anaerobic bottle) -1st Peripheral DrawFor syringe method draw:If able to obtain adequate sample (20 ml) inoculate anaerobic bottle firstIf inadequate sample obtained (less than 20 ml) inoculate aerobic bottle firstFor vacutainer method draw: Fill aerobic bottle first, then anaerobic Performed By: #### P TPTT #### U [facility] (DEFAULT) [address] [place] [id number] Bacteria identified Cx Nom (Unsp spec) NO GROWTH DAY [address] [facility] Comment on above: Order Comment: 2 Bot [...] anaerobic Performed By: #### B LDCULT #### [facility] (DEFAULT) [address] [address] C REACTIVE PROTEINon 023 CRP [Mass/Vol] 8.00 mg/L Normal <10.00 [facility] Comment on above: Performed By: #### Q HCGB, CRP #### U [facility] (DEFAULT) [address] [address] CRP High sensitivity method [Mass/Vol] 8.00 mg/L NINF - 10.00 mg/L [facility] Interpretation and review of laboratory results Normal [facility] CBC AND ELECTRONIC DIFFon Abs Baso Auto < Normal 0.00-0.15 [facility] Comment on above: Performed By: #### L [id number] #### [facility] (DEFAULT) [address] [address] Basophils/100 WBC (Bld) 0.4 % Normal [facility] Comment on above: Performed By: #### L [id number] #### [facility] (DEFAULT) [address] [address] DIFF STATUS Electronic Differential Normal [facility] Comment on above: Performed By: #### L [id number] #### [facility] (DEFAULT) [address] [address] Eosinophils (Bld) [#/Vol] 0.08 10*3/uL Normal 0.00-0.42 [facility] Comment on above: Performed By: #### L [id number] #### [facility] (DEFAULT) [address] [address] Eosinophils/100 WBC (Bld) 1.1 % Normal [facility] Comment on above: Performed By: #### L [id number] #### [facility] (DEFAULT) [address] [place] [address] Hematocrit (Bld) [Volume fraction] 42.8 % Normal 34.9-44.3 [facility] Comment on above: Performed By: #### L [id number] #### [facility] (DEFAULT) [address] [address] Hemoglobin (Bld) [Mass/Vol] 14.3 g/dL Normal 11.4-15.2 [facility] Comment on above: Performed By: #### L [id number] #### [facility] (DEFAULT) [address] [place] [address] Immature Grans % 0.3 % Normal [facility] Comment on above: Performed By: #### L [id number] #### [facility] (DEFAULT) [address] [address] Immature Grans Absolute < Normal <=0.08 [facility] Comment on above: Performed By: #### L [id number] #### [facility] (DEFAULT) [address] [address] Lymphocytes (Bld) [#/Vol] 2.40 10*3/uL Normal 1.16-3.51 [facility] Comment on above: Performed By: #### L [id number] #### [facility] (DEFAULT) [address] [address] Lymphocytes/100 WBC (Bld) 33.9 % Normal [facility] Comment on above: Performed By: #### L [id number] #### [facility] (DEFAULT) [address] [address] MCV (RBC) [Entitic vol] 93.7 fL Normal 79.6-97.7 [facility] Comment on above: Performed By: #### L [id number] #### [facility] (DEFAULT) [address] [address] Mean Cell Hgb 31.3 pg Normal 25.9-33.9 [facility] Comment on above: Performed By: #### L AB980 #### [facility] (DEFAULT) [address] [address] Mean Cell Hgb Conc 33.4 g/dL Normal 31.4-35.9 [facility] Comment on above: Performed By: #### L [id number] #### [facility] (DEFAULT) [address] [address] Monocytes (Bld) [#/Vol] 0.47 10*3/uL Normal 0.22-0.87 [facility] Comment on above: Performed By: #### L AB980 #### [facility] (DEFAULT) [address] [address] Monocytes/100 WBC (Bld) 6.6 % Normal [facility] Comment on above: Performed By: #### L AB980 #### [facility] (DEFAULT) [address] [address] Nucleated RBC 0.0 /100 WBC Normal <=0.2 [facility] Comment on above: Performed By: #### L [id number] #### [facility] (DEFAULT) [address] [address] Platelet mean volume (Bld) [Entitic vol] 10.0 fL Normal 8.5-12.2 [facility] Comment on above: Performed By: #### L [id number] #### [facility] (DEFAULT) [address] [address] Platelets (Bld) [#/Vol] 172 10*3/uL Normal 150-393 [facility] Comment on above: Performed By: #### L AB980 #### [facility] (DEFAULT) [address] [address] RBC (Bld) [#/Vol] 4.57 10*6/uL Normal 3.91-5.04 [facility] Comment on above: Performed By: #### L AB980 #### [facility] (DEFAULT) [address] [address] RBC Distribution 13.3 % Normal 10.8-14.9 [facility] Comment on above: Performed By: #### L [id number] #### [facility] (DEFAULT) [address] [place] [address] Segs + Bands Auto 57.7 % Normal [facility] Comment on above: Performed By: #### L [id number] #### [facility] (DEFAULT) [address] [place] [address] Segs + Bands,Absolute Auto 4.07 K/uL Normal 1.64-7.28 [facility] Comment on above: Performed By: #### L [id number] #### [facility] (DEFAULT) [address] [place] [address] WBC (Bld) [#/Vol] 7.07 10*3/uL Normal 3.99-11.19 [facility] Comment on above: Performed By: #### L [id number] #### [facility] (DEFAULT) [address] [place] [address] Basophils (Bld) [#/Vol] K/uL 0.00 - 0.15 K/uL [facility] Basophils/100 WBC (Bld) 0.4 % [facility] Differential cell count method Nom (Bld) Electronic Differential [facility] Eosinophils (Bld) [#/Vol] 0.08 10*3/uL 0.00 - 0.42 K/uL [facility] Eosinophils/100 WBC (Bld) 1.1 % [facility] Erythrocyte distribution width (RBC) [Ratio] 13.3 % 10.8 - 14.9 % [facility] Hematocrit (Bld) [Volume fraction] 42.8 % 34.9 - 44.3 % [facility] Hemoglobin (Bld) [Mass/Vol] 14.3 g/dL 11.4 - 15.2 g/dL [facility] Immature granulocytes (Bld) [#/Vol] K/uL NINF - 0.08 K/uL [facility] Immature granulocytes/100 WBC (Bld) 0.3 % [facility] Lymphocytes (Bld) [#/Vol] 2.40 10*3/uL 1.16 - 3.51 K/uL [facility] Lymphocytes/100 WBC (Bld) 33.9 % [facility] MCH (RBC) [Entitic mass] 31.3 pg 25.9 - 33.9 pg [facility] MCHC (RBC) [Mass/Vol] 33.4 g/dL 31.4 - 35.9 g/dL [facility] MCV (RBC) [Entitic vol] 93.7 fL 79.6 - 97.7 fL [facility] Monocytes (Bld) [#/Vol] 0.47 10*3/uL 0.22 - 0.87 K/uL [facility] Monocytes/100 WBC (Bld) 6.6 % [facility] Neutrophils (Bld) [#/Vol] 4.07 10*3/uL 1.64 - 7.28 K/uL [facility] Nucleated RBC/100 WBC (Bld) [Ratio] 0.0 % NINF [facility] Platelet mean volume (Bld) [Entitic vol] 10.0 fL 8.5 - 12.2 fL [facility] Platelets (Bld) [#/Vol] 172 10*3/uL 150 - 393 K/uL [facility] RBC (Bld) [#/Vol] 4.57 10*6/uL [facility] Segmented neutrophils/100 WBC (Bld) 57.7 % [facility] WBC (Bld) [#/Vol] 7.07 10*3/uL 3.99 - 11.19 K/uL [facility] CHM 7 - EDon 09-20-2022 Anion gap [Moles/Vol] 12 mmol/L Normal 12-20 [facility] Comment on above: Performed By: #### H CARLY, C7ED #### [facility] (DEFAULT) [address] [place] [address] Chloride [Moles/Vol] 108 mmol/L Normal 98-108 [facility] Comment on above: Performed By: #### H CARLY, C7ED #### [facility] (DEFAULT) [address] [place] [address] CO2 [Moles/Vol] 20 mmol/L Low 21-31 [facility] Comment on above: Performed By: #### H CARLY, C7ED #### [facility] (DEFAULT) [address] [place] [address] Creatinine [Mass/Vol] 0.80 mg/dL Normal 0.50-1.20 [facility] Comment on above: Performed By: #### H CARLY C7ED #### [facility] (DEFAULT) [address] [place] [address] GFR/1.73 sq M.predicted among non-blacks MDRD (S/P/Bld) [Vol rate/Area] 89 mL/min/{1.73_m2} Normal >=60 [facility] Comment on above: Result Comment: Repo rted eGFR is based on the CKD-EPI 2020 equation using creatinine, age, and sex. Performed By: #### Tip CARROLL C7ED #### [facility] (DEFAULT) [address] [place] [address] Glucose [Mass/Vol] 194 mg/dL High 70-99 [facility] Comment on above: Performed By: #### H CARLY, C7ED #### [facility] (DEFAULT) [address] [place] [address] Osmolality [Osmolality] 294 mosm/kg Normal 278-305 [facility] Comment on above: Performed By: #### H CARLY, C7ED #### [facility] (DEFAULT) [address] [place] [address] Potassium [Moles/Vol] 3.9 mmol/L Normal 3.5-5.0 [facility] Comment on above: Performed By: #### Tip CARROLL, C7ED #### [facility] (DEFAULT) [address] [place] [address] Sodium [Moles/Vol] 136 mmol/L Normal 135-145 [facility] Comment on above: Performed By: #### H FP, C7ED #### [facility] (DEFAULT) [address] [place] [address] Urea nitrogen [Mass/Vol] 20 mg/dL Normal 7-25 [facility] Comment on above: Performed By: #### H FP, C7ED #### [facility] (DEFAULT) [address] [place] [address] Urea nitrogen/Creatinine [Mass ratio] 25 mg/mg Normal [facility] Comment on above: Performed By: #### H FP, C7ED #### [facility] (DEFAULT) [address] [place] [address] Anion gap [Moles/Vol] 12 mmol/L 7 - 17 mmol/L [facility] Chloride [Moles/Vol] 108 mmol/L 98 - 10 8 mmol/L [facility] CO2 [Moles/Vol] 20 mmol/L Low 21 - 31 mmol/L [facility] Creatinine [Mass/Vol] 0.80 mg/dL 0.50 - 1.20 mg/dL [facility] GFR/1.73 sq M.predicted CKD-EPI (S/P/Bld) [Vol rate/Area] 89 - PINF [facility] Comment on above: Reported eGFR is bas ed on the CKD-EPI 2020 equation using creatinine, age, and sex. Glucose [Mass/Vol] 194 mg/dL High 70 - 99 mg/dL [facility] Interpretation and review of laboratory results Abnormal [facility] Osmolality Calc [Osmolality] 294 [facility] Potassium [Moles/Vol] 3.9 mmol/L 3.5 - 5.0 mmol/L [facility] Sodium [Moles/Vol] 136 mmol/L 135 - 145 mmol/L [facility] Urea nitrogen [Mass/Vol] 20 mg/dL 7 - 25 mg/dL [facility] Urea nitrogen/Creatinine [Mass ratio] 25 mg/mg [facility] CT CHEST WITH CONTRASTon CT CHEST [...] have reviewed and approved this report. Normal [facility] CT Chest W contrast Esthela IMPRESSION: No [...] I have reviewed and approved this report. [facility] Radiology Study observation (narrative) [facility] CT Chest W contrast IVOrdere d By: Brady Morgan on 09-20-2022 [facility] Work Phone: HCG ( test) Qlon HCG.beta subunit [Moles/Vol] 7.8 mmol/L mIU/mL [facility] Comment on above: Non-: <10 mI U/mL Postmenopause: <10 mIU/mL Male: <10 mIU/mL FEMALE GESTATIONAL AGE 2-4 Weeks: 39.1-8,388 mIU/mL 5-6 Weeks: 861-88,769 mIU/mL 6-8 Weeks: 8,636-218,085 mIU/mL 8-10 Weeks: 18,700-244,467 mIU/mL 10-12 Weeks: 23,143-181,899 mIU/mL 13-27 Weeks: 6,303-97,171 mIU/mL 24-40 Weeks: 4,360-74,883 mIU/mL Test results cannot be interpreted as absolute evidence for the presence or absence of malignant disease. [facility] HEPATIC FUNCTION PANELon Albumin [Mass/Vol] 4.5 g/dL Normal 3.5-5.0 [facility] Comment on above: Performed By: #### Tip CARROLL C7ED #### [facility] (DEFAULT) [address] [address] ALP [Catalytic activity/Vol] 92 U/L Normal 32-126 [facility] Comment on above: Performed By: #### Tip CARROLL C7ED #### [facility] (DEFAULT) [address] [address] ALT [Catalytic activity/Vol] 9 U/L Normal 9-48 [facility] Comment on above: Performed By: #### Tip CARROLL C7ED #### [facility] (DEFAULT) [address] [address] AST [Catalytic activity/Vol] 12 U/L Normal 10-39 [facility] Comment on above: Performed By: #### Tip CARROLL C7ED #### [facility] (DEFAULT) [address] [address] Bilirubin [Mass/Vol] 0.6 mg/dL Normal <1.5 [facility] Comment on above: Performed By: #### Tip CARROLL C7ED #### [facility] (DEFAULT) [address] [address] Bilirubin.indirect [Mass/Vol] 0.1 mg/dL Normal <0.3 [facility] Comment on above: Performed By: #### H CARLY, C7ED #### [facility] (DEFAULT) [address] [place] [address] Protein [Mass/Vol] 7.2 g/dL Normal 6.4-8.3 [facility] Comment on above: Performed By: #### H CARLY, C7ED #### [facility] (DEFAULT) [address] [place] [address] Albumin [Mass/Vol] 4.5 g/dL 3.5 - 5.0 g/dL [facility] ALP [Catalytic activity/Vol] 92 U/L 32 - 126 U/L [facility] ALT [Catalytic activity/Vol] 9 U/L 9 - 48 U/L [facility] AST [Catalytic activity/Vol] 12 U/L 10 - 39 U/L [facility] Bilirubin [Mass/Vol] 0.6 mg/dL [facility] 1.[facility] mg/dL [facility] Bilirubin.direct [Mass/Vol] 0.1 mg/dL [facility] - 0.3 mg/dL [facility] Interpretation and review of laboratory results Normal [facility] Protein [Mass/Vol] 7.2 g/dL 6.4 - 8.3 g/dL [facility] LACTATE, INITIALon 3 0 Hour Lacate 1.3 mmol/L Normal 0.5-1.6 [facility] Comment on above: Performed By: #### L ABLACTINT #### [facility] (DEFAULT) [address] [place] [address] Interpretation and review of laboratory results Normal [facility] Lactate [Moles/Vol] 1.3 mmol/L 0.5 - 1. 6 mmol/L [facility] No Panel Informationon 09-20 [facility] XR CHEST PA AND LATERALon XR CHEST [...] have reviewed and approved this report. Normal [facility] XR Chest PA and Lateralon IMPRESSION: No [...] I have reviewed and approved this report. [facility] Radiology Study observation (narrative) [facility] XR Chest PA and LateralOrder ed By: Aidan Kent on 09-20-2022 [facility] Work Phone: Absolute lymphocyte countOrd ered By: Dr. Alvarez on 09-02-2022 Lymphocytes Auto (Unsp spec) [#/Vol] 1.57 10*3/uL 0.83-4.51 [facility] Basophil percentageOrdered B y: Dr. Alvarez on 09-02-2022 Basophils/100 WBC (Bld) 0.7 % 0-1 [facility] Chloride [Moles/Vol] 107 mmol/L 98-107 [facility] Eosinophils/100 WBC (Bld) 1.8 % 0-5 [facility] Glucose [Mass/Vol] 225 mg/dL 74-106 [facility] Comment on above: Glucose result great er than or equal to 200 mg/dLsuggests DIABETES MELLITUS per A.D.A. criteria. Neutrophils (Bld) [#/Vol] 4.0 10*3/uL 2.0-7.7 [facility] Neutrophils/100 WBC (Bld) 65.9 % 47-70 [facility] Potassium [Moles/Vol] 4.6 mmol/L 3.5-5.1 [facility] Sodium [Moles/Vol] 138 mmol/L 136-145 [facility] WBC (Bld) [#/Vol] 6.1 10*3/uL 4.4-11.0 [facility] Blood erythrocytes count (nu mber/volume)Ordered By: Dr. Alvarez on 09-02-2022 RBC (Bld) [#/Vol] 4.39 10*6/uL 4.2-5.[address] [facility] Blood hemoglobin measurement (mass/volume)Ordered By: Dr. Alvarez on 09-02-2022 Hemoglobin (Bld) [Mass/Vol] 13.8 g/dL 12.0-15.0 [facility] Blood lymphocytes/100 leukoc ytesOrdered By: Dr. Alvarez on 09-02-2022 Lymphocytes/100 WBC (Bld) 25.7 % 19-41 [facility] Blood monocytes/100 leukocyt esOrdered By: Dr. Alvarez on 09-02-2022 Monocytes/100 WBC (Bld) 5.6 % 0-10 [facility] Blood platelet mean volumeOr dered By: Dr. Alvarez on 09-02-2022 Platelet mean volume (Bld) [Entitic vol] 9.7 fL 6.2-12.0 [facility] Determination of erythrocyte mean corpuscular volume (MCV)Ordered By: Dr. Alvarez on 09-02-2022 MCV (RBC) [Entitic vol] 95.4 fL 81-99 [facility] Hematocrit Auto (Bld) [Volum e fraction]Ordered By: Dr. Alvarez on 09-02-2022 Hematocrit (Bld) [Volume fraction] 41.9 % 37-47 [facility] Laboratory - Chemistry and C hemistry - challengeOrdered By: Dr. Alvarez on 09-02-2022 CO2 [Moles/Vol] 22.0 mmol/L 21.0-32.0 [facility] Urea nitrogen/Creatinine [Mass ratio] 29.3 mg/mg 10-20 [facility] Laboratory - Hematology and Cell countsOrdered By: Dr. Alvarez on 09-02-2022 Erythrocyte distribution width (RBC) [Entitic vol] 46.3 fL 35.1-43.9 [facility] Erythrocyte distribution width (RBC) [Ratio] 13.2 % 11.6-14.6 [facility] Immature granulocytes/100 WBC (Bld) 0.300 % 0.0-0.9 [facility] Comment on above: IG% - Immature Granu locytes (promyelocytes, myelocytes and metamyelocytes) > 1% indicates that a LEFT SHIFT is Present. MCH (RBC) [Entitic mass] 31.4 pg 27.0-32.0 [facility] Nucleated RBC/100 WBC (Bld) [Ratio] 0 % 0-5 [facility] MCHC Auto (RBC) [Mass/Vol]Or dered By: Dr. Alvarez on 09-02-2022 MCHC (RBC) [Mass/Vol] 32.9 g/dL 32-36 [facility] No Panel InformationOrdered By: Dr. Alvarez on 09-02-2022 Estimated Creatinine Clearance Calc 57.40 ml/min [facility] Estimated GFR (MDRD) Amer 76 mL/min >60 [facility] Comment on above: GFR Calc Estimated GFR (MDRD) Non-Af Amer 62 mL/min >60 [facility] Comment on above: Non- GFR Calc Platelets bldOrdered By: Dr. Alvarez on 09-02-2022 Platelets (Bld) [#/Vol] 187 10*3/uL 150-450 [facility] Serum or plasma calcium oliver urement (mass/volume)Ordered By: Dr. Alvarez on 09-02-2022 Calcium [Mass/Vol] 9.6 mg/dL 8.5-10.1 [facility] Serum or plasma creatinine m easurement (mass/volume)Ordered By: Dr. Alvarez on 09-02-2022 Creatinine [Mass/Vol] 0.99 mg/dL 0.55-1.02 [facility] Comment on above: The validity of the calculated GFR & GFRAA in patients over 70 years has not been determined. Clinical correlation is essential. Serum or plasma urea nitroge n measurement (mass/volume)Ordered By: Dr. Alvarez on 09-02-2022 Urea nitrogen [Mass/Vol] 29 mg/dL 7-18 [facility] Thin prep Papanicolaou smear with manual screeningOrdered By: Dr. Alvarez on 09-02-2022 Thin prep Papanicolaou smear with manual screening 9 5-15 [facility] CBC AND ELECTRONIC DIFFon Abs Baso Auto < Normal 0.00-0.15 [facility] Comment on above: Performed By: #### P TPTT #### [facility] (DEFAULT) [address] [address] Basophils/100 WBC (Bld) 0.6 % Normal [facility] Comment on above: Performed By: #### P TPTT #### [facility] (DEFAULT) [address] [place] [address] DIFF STATUS Electronic Differential Normal [facility] Comment on above: Performed By: #### P TPTT #### [facility] (DEFAULT) [address] [address] Eosinophils (Bld) [#/Vol] 0.08 10*3/uL Normal 0.00-0.42 [facility] Comment on above: Performed By: #### P TPTT #### [facility] (DEFAULT) [address] [address] Eosinophils/100 WBC (Bld) 1.7 % Normal [facility] Comment on above: Performed By: #### P TPTT #### [facility] (DEFAULT) [address] [address] Hematocrit (Bld) [Volume fraction] 40.0 % Normal 34.9-44.3 [facility] Comment on above: Performed By: #### P TPTT #### [facility] (DEFAULT) [address] [address] Hemoglobin (Bld) [Mass/Vol] 13.1 g/dL Normal 11.4-15.2 [facility] Comment on above: Performed By: #### P TPTT #### [facility] (DEFAULT) [address] [address] Immature Grans % 0.2 % Normal [facility] Comment on above: Performed By: #### P TPTT #### [facility] (DEFAULT) [address] [address] Immature Grans Absolute < Normal <=0.08 [facility] Comment on above: Performed By: #### P TPTT #### [facility] (DEFAULT) [address] [address] Lymphocytes (Bld) [#/Vol] 1.88 10*3/uL Normal 1.16-3.51 [facility] Comment on above: Performed By: #### P TPTT #### [facility] (DEFAULT) [address] [place] [address] Lymphocytes/100 WBC (Bld) 38.9 % Normal [facility] Comment on above: Performed By: #### P TPTT #### [facility] (DEFAULT) [address] [place] [address] MCV (RBC) [Entitic vol] 95.0 fL Normal 79.6-97.7 [facility] Comment on above: Performed By: #### P TPTT #### [facility] (DEFAULT) [address] [place] [address] Mean Cell Hgb 31.1 pg Normal 25.9-33.9 [facility] Comment on above: Performed By: #### P TPTT #### [facility] (DEFAULT) [address] [place] [address] Mean Cell Hgb Conc 32.8 g/dL Normal 31.4-35.9 [facility] Comment on above: Performed By: #### P TPTT #### [facility] (DEFAULT) [address] [place] [address] Monocytes (Bld) [#/Vol] 0.30 10*3/uL Normal 0.22-0.87 [facility] Comment on above: Performed By: #### P TPTT #### [facility] (DEFAULT) [address] [place] [address] Monocytes/100 WBC (Bld) 6.2 % Normal [facility] Comment on above: Performed By: #### P TPTT #### [facility] (DEFAULT) [address] [place] [address] Nucleated RBC 0.0 /100 WBC Normal <=0.2 [facility] Comment on above: Performed By: #### P TPTT #### [facility] (DEFAULT) [address] [place] [address] Platelet mean volume (Bld) [Entitic vol] 9.9 fL Normal 8.5-12.2 [facility] Comment on above: Performed By: #### P TPTT #### [facility] (DEFAULT) [address] [place] [address] Platelets (Bld) [#/Vol] 213 10*3/uL Normal 150-393 [facility] Comment on above: Performed By: #### P TPTT #### [facility] (DEFAULT) [address] [place] [address] RBC (Bld) [#/Vol] 4.21 10*6/uL Normal 3.91-5.04 [facility] Comment on above: Performed By: #### P TPTT #### [facility] (DEFAULT) [address] [place] [address] RBC Distribution 13.2 % Normal 10.8-14.9 [facility] Comment on above: Performed By: #### P TPTT #### [facility] (DEFAULT) [address] [place] [address] Segs + Bands Auto 52.4 % Normal [facility] Comment on above: Performed By: #### P TPTT #### [facility] (DEFAULT) [address] [address] Segs + Bands,Absolute Auto 2.53 K/uL Normal 1.64-7.28 [facility] Comment on above: Performed By: #### P TPTT #### [facility] (DEFAULT) [address] [place] [address] WBC (Bld) [#/Vol] 4.83 10*3/uL Normal 3.99-11.19 [facility] Comment on above: Performed By: #### P TPTT #### [facility] (DEFAULT) [address] [address] Basophils (Bld) [#/Vol] K/uL 0.00 - 0.15 K/uL [facility] Basophils/100 WBC (Bld) 0.6 % [facility] Differential cell count method Nom (Bld) Electronic Differential O [facility] Eosinophils (Bld) [#/Vol] 0.08 10*3/uL 0.00 - 0.42 K/uL [facility] Eosinophils/100 WBC (Bld) 1.7 % [facility] Erythrocyte distribution width (RBC) [Ratio] 13.2 % 10.8 - 14.9 % [facility] Hematocrit (Bld) [Volume fraction] 40.0 % 34.9 - 44.3 % [facility] Hemoglobin (Bld) [Mass/Vol] 13.1 g/dL 11.4 - 15.2 g/dL [facility] Immature granulocytes (Bld) [#/Vol] K/uL NINF - 0.08 K/uL [facility] Immature granulocytes/100 WBC (Bld) 0.2 % [facility] Lymphocytes (Bld) [#/Vol] 1.88 10*3/uL 1.16 - 3.51 K/uL [facility] Lymphocytes/100 WBC (Bld) 38.9 % [facility] MCH (RBC) [Entitic mass] 31.1 pg 25.9 - 33.9 pg [facility] MCHC (RBC) [Mass/Vol] 32.8 g/dL 31.4 - 35.9 g/dL [facility] MCV (RBC) [Entitic vol] 95.0 fL 79.6 - 97.7 fL [facility] Monocytes (Bld) [#/Vol] 0.30 10*3/uL 0.22 - 0.87 K/uL [facility] Monocytes/100 WBC (Bld) 6.2 % [facility] Neutrophils (Bld) [#/Vol] 2.53 10*3/uL 1.64 - 7.28 K/uL [facility] Nucleated RBC/100 WBC (Bld) [Ratio] 0.0 % [facility] Platelet mean volume (Bld) [Entitic vol] 9.9 fL 8.5 - 12.2 fL [facility] Platelets (Bld) [#/Vol] 213 10*3/uL 150 - 393 K/uL [facility] RBC (Bld) [#/Vol] 4.21 10*6/uL [facility] Segmented neutrophils/100 WBC (Bld) 52.4 % [facility] WBC (Bld) [#/Vol] 4.83 10*3/uL 3.99 - 11.19 K/uL [facility] CHEM 7 (LYTES,BUN,CREA,GLUC) on 08-18-2022 Anion gap [Moles/Vol] 13 mmol/L Normal 7-17 [facility] Comment on above: Performed By: #### C HM7 #### [facility] (DEFAULT) [address] [address] Chloride [Moles/Vol] 112 mmol/L High 98-108 [facility] Comment on above: Performed By: #### C HM7 #### [facility] (DEFAULT) [address] [address] CO2 [Moles/Vol] 19 mmol/L Low 21-31 [facility] Comment on above: Performed By: #### C HM7 #### [facility] (DEFAULT) [address] [address] Creatinine [Mass/Vol] 0.85 mg/dL Normal 0.50-1.20 [facility] [facility] Comment on above: Performed By: #### C HM7 #### [facility] (DEFAULT) [address] [address] GFR/1.73 sq M.predicted among non-blacks MDRD (S/P/Bld) [Vol rate/Area] 82 mL/min/{1.73_m2} Normal >=60 [facility] Comment on above: Result Comment: Repo rted eGFR is based on the CKD-EPI 2020 equation using creatinine, age, and sex. Performed By: #### C HM7 #### [facility] (DEFAULT) [address] [place] [address] Glucose [Mass/Vol] 201 mg/dL High 70-99 [facility] Comment on above: Performed By: #### C HM7 #### [facility] (DEFAULT) [address] [place] [address] Osmolality [Osmolality] 305 mosm/kg Normal 278-305 [facility] Comment on above: Performed By: #### C HM7 #### [facility] (DEFAULT) [address] [place] [address] Potassium [Moles/Vol] 4.0 mmol/L Normal 3.5-5.0 [facility] Comment on above: Performed By: #### C HM7 #### [facility] (DEFAULT) [address] [place] [address] Sodium [Moles/Vol] 140 mmol/L Normal 135-145 [facility] Comment on above: Performed By: #### C HM7 #### [facility] (DEFAULT) [address] [place] [address] Urea nitrogen [Mass/Vol] 29 mg/dL High 7-25 [facility] Comment on above: Performed By: #### C HM7 #### [facility] (DEFAULT) [address] [place] [address] Urea nitrogen/Creatinine [Mass ratio] 34 mg/mg Normal [facility] Comment on above: Performed By: #### C HM7 #### [facility] (DEFAULT) [address] [place] [address] Anion gap [Moles/Vol] 13 mmol/L 7 - 17 mmol/L [facility] Chloride [Moles/Vol] 112 mmol/L High 98 - 10 8 mmol/L [facility] CO2 [Moles/Vol] 19 mmol/L Low 21 - 31 mmol/L [facility] Creatinine [Mass/Vol] 0.85 mg/dL 0.50 - 1.20 mg/dL [facility] GFR/1.73 sq M.predicted CKD-EPI (S/P/Bld) [Vol rate/Area] 82 - PINF [facility] Comment on above: Reported eGFR is bas ed on the CKD-EPI 2020 equation using creatinine, age, and sex. Glucose [Mass/Vol] 201 mg/dL High 70 - 99 mg/dL [facility] Interpretation and review of laboratory results Abnormal [facility] O[facility]olality Calc [Osmolality] [facility] Potassium [Moles/Vol] 4.0 mmol/L 3.5 - 5.0 mmol/L [facility] Sodium [Moles/Vol] 140 mmol/L 135 - 145 mmol/L [facility] Urea nitrogen [Mass/Vol] 29 mg/dL High 7 - 25 mg/dL [facility] Urea nitrogen/Creatinine [Mass ratio] 34 mg/mg [facility] EP PROCEDURE - EPS/ABLATION/ DEVICEon 08-18-2022 EP PROCEDURE - EPS/ABLATION/DEVICE Pt with an irreversible nonischemic cardiomyopathy, NYHA Class III and LVEF of 30% despite medical therapy and underwent successful BiV ICD via left axillary vein for primary prevention. Baseline LBBB. There were excellent lead parameters. IV Vancomycin is utilized because: Physician/MEDICAL ADMINISTRATIVE SPECIALIST/PA or pharmacist documentation of increased MRSA rate, either facility-wide or operation-specific PLAN: Leave the aquacel dressing on (unless it becomes soiled to the outward edges) for 7 days, then remove and leave site uncovered Device follow up as scheduled with [facility] Discharge today assuming post procedure CXR and device testing are normal No follow up in EP clinic Follow up only in Device clinic Please contact Device team for education/teaching prior to discharge from [facility] Table formatting from the original result was not included. [facility]rix EP Procedure - EPS/Ablation/Device Ordering Physician: SERAFIN PADRON Order #: [id number] Study Date: 08/18/2022 Patient Information Name MRN Description Pito Freedmans [id number] 51 y.o. female Physicians Panel Physicians Referring [...] lead parameters. IV Vancomycin is utilized because: Physician/MEDICAL ADMINISTRATIVE SPECIALIST/PA or pharmacist documentation of increased MRSA rate, either facility-wide or operation-specific PLAN: Leave the aquacel dressing on (unless it becomes soiled to the outward edges) for 7 days, then remove and leave site uncovered Device follow up as scheduled with [facility] Discharge today assuming post procedure CXR and device testing are normal No follow up in EP clinic Follow up only in Device clinic Please contact Device team for education/teaching prior to discharge from [facility] Consent The procedure was explained including [...] accessed using a single axillary vein stick (Seldinger). A new lead was placed into the [...] I] Estimated Blood Loss: 20 ml Insertable Senior Corporate Strategy Manager Sutured the right ventricular lead. Suture used: two 2-0 Nurolon Sutured the atrial lead. Suture used: two 2-0 Nurolon Sutured the generator. Suture used: single 2-0 Nurolon Venogram A venogram was performed on the left subclavian. Injected with hand injection. Venogram performed via IV. Injected volume = 10 mL. Implants ICD Defibrillator Cardiac .9 (more content not included)... Normal [facility] Electrophysiology studyon Body surface area Derived from formula 2.03 m2 [facility] Pt with an irreversi ble nonischemic cardiomyopathy, NYHA Class III and LVEF of 30% despite medical therapy and underwent successful BiV ICD via left axillary vein for primary prevention. Baseline LBBB. There were excellent lead parameters. IV Vancomycin is utilized because: Physician/MEDICAL ADMINISTRATIVE SPECIALIST/PA or pharmacist documentation of increased MRSA rate, [...] team for education/teaching prior to discharge from [facility] Radiology Study observation (narrative) [facility] GLUCOSE POCon 08-18-2022 Glucose [Mass/Vol] 91 mg/dL 70 - 99 mg/dL [facility] POC Sample Type CAPBL [facility] Test performed at ad dress of the patient encounter. [facility] Glucose [Mass/Vol] 211 mg/dL High 70 - 99 mg/dL [facility] Interpretation and review of laboratory results Abnormal [facility] POC Sample Type VENO [facility] Test performed at ad dress of the patient encounter. [facility] PT,INR,PTTon 08-18-2022 aPTT Coag (Bld) [Time] 25.9 s Normal 24.0-34.3 [facility] Comment on above: Performed By: #### P TPTT #### [facility] (DEFAULT) [address] [place] [id number] INR Coag (PPP) [Relative time] 1.0 {INR} Normal 0.9-1.1 [facility] Comment on above: Performed By: #### P TPTT #### [facility] (DEFAULT) [address] [place] [address] PT Coag (PPP) [Time] 13.4 s Normal 11.9-14.2 [facility] Comment on above: Performed By: #### P TPTT #### [facility] (DEFAULT) [address] [place] [address] aPTT Coag (PPP) [Time] 25.9 s [facility] INR Coag (Bld) [Relative time] 1.0 {INR} 0.9 - 1.1 [facility] Interpretation and review of laboratory results Normal [facility] PT Coag (PPP) [Time] 13.4 s [facility] XR CHEST PA AND LATERALon XR CHEST [...] of left subclavian approach biventricular ICD. Normal [facility] XR Chest PA and Lateralon IMPRESSION: No [...] Chest Wall: Normal RADIOLOGY Shanae Jett [facility] - 08/18/2022 EXAM: XR CHEST PA [...] placement of left subclavian approach biventricular ICD. [facility] Radiology Study observation (narrative) [facility] XR Chest PA and LateralOrder ed By: Shanae Jett on 08-18-2022 [facility] Work Phone: Absolute lymphocyte countOrd ered By: Dr. Nguyen on 08-07-2022 Lymphocytes Auto (Unsp spec) [#/Vol] 2.12 10*3/uL 0.83-4.51 [facility] Basophil percentageOrdered B y: Dr. Nguyen on 08-07-2022 Basophils/100 WBC (Bld) 0.2 % 0-1 [facility] Chloride [Moles/Vol] 111 mmol/L 98-107 [facility] Cholesterol [Mass/Vol] 141 mg/dL <200 [facility] Comment on above: <200 mg/dL Desirable 200-240 mg/dL Borderline >240 mg/dL High Risk Eosinophils/100 WBC (Bld) 2.1 % 0-5 [facility] Glucose [Mass/Vol] 196 mg/dL 74-106 [facility] Comment on above: Fasting Glucose resu lt greater than or equal to 126 mg/dL suggests DIABETES MELLITUS per A.D.A. criteria. Neutrophils (Bld) [#/Vol] 2.6 10*3/uL 2.0-7.7 [facility] Neutrophils/100 WBC (Bld) 49.3 % 47-70 [facility] Potassium [Moles/Vol] 3.5 mmol/L 3.5-5.1 [facility] Sodium [Moles/Vol] 140 mmol/L 136-145 [facility] Triglyceride [Mass/Vol] 97 mg/dL <199 [facility] Comment on above: The drugs N-Acetylcy steine and Metamizole may falsely depress this assay.Serum Triglycerides Reference Interval Normal <150 mg/dL Borderline high 150 - 199 mg/dL High 200 - 499 mg/dL Very High > or = 500 mg/dL WBC (Bld) [#/Vol] 5.2 10*3/uL 4.4-11.0 [facility] Blood erythrocytes count (nu mber/volume)Ordered By: Dr. Nguyen on 08-07-2022 RBC (Bld) [#/Vol] 4.08 10*6/uL 4.2-5.[address] [facility] Blood hemoglobin measurement (mass/volume)Ordered By: Dr. Nguyen on 08-07-2022 Hemoglobin (Bld) [Mass/Vol] 12.9 g/dL 12.0-15.0 [facility] Blood lymphocytes/100 leukoc ytesOrdered By: Dr. Nguyen on 08-07-2022 Lymphocytes/100 WBC (Bld) 41.0 % 19-41 [facility] Blood monocytes/100 leukocyt esOrdered By: Dr. Nguyen on 08-07-2022 Monocytes/100 WBC (Bld) 7.2 % 0-10 [facility] Blood platelet mean volumeOr dered By: Dr. Nguyen on 08-07-2022 Platelet mean volume (Bld) [Entitic vol] 10.3 fL 6.2-12.0 [facility] Determination of erythrocyte mean corpuscular volume (MCV)Ordered By: Dr. Nguyen on 08-07-2022 MCV (RBC) [Entitic vol] 94.6 fL 81-99 [facility] Glucose Glucometer (dC) [M ass/Vol]Ordered By: Dr. Mathew on 08-07-2022 Glucose [Mass/Vol] 171 mg/dL 74-106 [facility] Comment on above: MANAGEMENT OF PATIEN T CARE PER NURSING PROTOCOL Glucose [Mass/Vol] 212 mg/dL 74-106 [facility] Comment on above: MANAGEMENT OF PATIEN T CARE PER NURSING PROTOCOL Hematocrit Auto (Bld) [Volum e fraction]Ordered By: Dr. Nguyen on 08-07-2022 Hematocrit (Bld) [Volume fraction] 38.6 % 37-47 [facility] Laboratory - Chemistry and C hemistry - challengeOrdered By: Dr. Nguyen on 08-07-2022 CO2 [Moles/Vol] 21.0 mmol/L 21.0-32.0 [facility] Urea nitrogen/Creatinine [Mass ratio] 32.2 mg/mg 10-20 [facility] Laboratory - Hematology and Cell countsOrdered By: Dr. Nguyen on 08-07-2022 Erythrocyte distribution width (RBC) [Entitic vol] 45.5 fL 35.1-43.9 [facility] Erythrocyte distribution width (RBC) [Ratio] 13.2 % 11.6-14.6 [facility] Immature granulocytes/100 WBC (Bld) 0.200 % 0.0-0.9 [facility] Comment on above: IG% - Immature Granu locytes (promyelocytes, myelocytes and metamyelocytes) > 1% indicates that a LEFT SHIFT is Present. MCH (RBC) [Entitic mass] 31.6 pg 27.0-32.0 [facility] Nucleated RBC/100 WBC (Bld) [Ratio] 0 % 0-5 [facility] MCHC Auto (RBC) [Mass/Vol]Or dered By: Dr. Nguyen on 08-07-2022 MCHC (RBC) [Mass/Vol] 33.4 g/dL 32-36 [facility] No Panel InformationOrdered By: Dr. Nguyen on 08-07-2022 Estimated Creatinine Clearance Calc 65.32 ml/min [facility] Estimated GFR (MDRD) Amer 88 mL/min >60 [facility] Comment on above: GFR Calc Estimated GFR (MDRD) Non-Af Amer 73 mL/min >60 [facility] Comment on above: Non- GFR Calc Troponin I High Sensitivity 8 pg/mL 3.0-54.0 [facility] Comment on above: Please Note: [place] t Units and Gender Specific Reference Ranges. For more information see Policy Stat Procedure [place] High Sensitivity Troponin (TNIH) and attachments. Platelets bldOrdered By: Dr. Nguyen on 08-07-2022 Platelets (Bld) [#/Vol] 178 10*3/uL 150-450 [facility] Serum or plasma calcium oliver urement (mass/volume)Ordered By: Dr. Nguyen on 08-07-2022 Calcium [Mass/Vol] 8.9 mg/dL 8.5-10.1 [facility] Serum or plasma cholesterol in HDL measurement (mass/volume)Ordered By: Dr. Nguyen on 08-07-2022 Cholesterol in HDL [Mass/Vol] 51 mg/dL >40 [facility] Comment on above: The drugs N-Acetylcy steine and Metamizole may falsely depress this assay. Reference Range HDL <40 mg/dL Low HDL Cholesterol HDL >or= 60 mg/dL High HDL Cholesterol Serum or plasma cholesterol in VLDL measurement (mass/volume)Ordered By: Dr. Nguyen on 08-07-2022 Cholesterol in VLDL [Mass/Vol] 19 mg/dL 5-40 [facility] Serum or plasma creatinine m easurement (mass/volume)Ordered By: Dr. Nguyen on 08-07-2022 Creatinine [Mass/Vol] 0.87 mg/dL 0.55-1.02 [facility] Comment on above: The validity of the calculated GFR & GFRAA in patients over 70 years has not been determined. Clinical correlation is essential. Serum or plasma low density lipoprotein (LDL) cholesterol measurement (mass/volume)Ordered By: Dr. Nguyen on 08-07-2022 Cholesterol in LDL [Mass/Vol] 71 mg/dL 0-130 [facility] Serum or plasma urea nitroge n measurement (mass/volume)Ordered By: Dr. Nguyen on 08-07-2022 Urea nitrogen [Mass/Vol] 28 mg/dL 7-18 [facility] Thin prep Papanicolaou smear with manual screeningOrdered By: Dr. Nguyen on 08-07-2022 Thin prep Papanicolaou smear with manual screening 8 5-15 [facility] Absolute lymphocyte countOrd ered By: Lolis Todd on 08-06-2022 Lymphocytes Auto (Unsp spec) [#/Vol] 2.24 10*3/uL 0.83-4.51 [facility] Basophil percentageOrdered B y: Lolis Todd on 08-06-2022 Basophils/100 WBC (Bld) 0.3 % 0-1 [facility] Chloride [Moles/Vol] 109 mmol/L 98-107 [facility] Eosinophils/100 WBC (Bld) 2.0 % 0-5 [facility] Glucose [Mass/Vol] 244 mg/dL 74-106 [facility] Comment on above: Glucose result great er than or equal to 200 mg/dLsuggests DIABETES MELLITUS per A.D.A. criteria. Neutrophils (Bld) [#/Vol] 3.5 10*3/uL 2.0-7.7 [facility] Neutrophils/100 WBC (Bld) 55.6 % 47-70 [facility] Potassium [Moles/Vol] 4.0 mmol/L 3.5-5.1 [facility] Sodium [Moles/Vol] 138 mmol/L 136-145 [facility] WBC (Bld) [#/Vol] 6.4 10*3/uL 4.4-11.0 [facility] Blood erythrocytes count (nu mber/volume)Ordered By: Lolis Todd on 08-06-2022 RBC (Bld) [#/Vol] 4.26 10*6/uL 4.2-5.[address] [facility] Blood hemoglobin measurement (mass/volume)Ordered By: Lolis Todd on 08-06-2022 Hemoglobin (Bld) [Mass/Vol] 13.6 g/dL 12.0-15.0 [facility] Blood lymphocytes/100 leukoc ytesOrdered By: Lolis Todd on 08-06-2022 Lymphocytes/100 WBC (Bld) 35.2 % 19-41 [facility] Blood monocytes/100 leukocyt esOrdered By: Lolis Todd on 08-06-2022 Monocytes/100 WBC (Bld) 6.6 % 0-10 [facility] Blood platelet mean volumeOr dered By: Lolis Todd on 08-06-2022 Platelet mean volume (Bld) [Entitic vol] 10.2 fL 6.2-12.0 [facility] Determination of erythrocyte mean corpuscular volume (MCV)Ordered By: Lolis Todd on 08-06-2022 MCV (RBC) [Entitic vol] 96.7 fL 81-99 [facility] Hematocrit Auto (Bld) [Volum e fraction]Ordered By: Lolis Todd on 08-06-2022 Hematocrit (Bld) [Volume fraction] 41.2 % 37-47 [facility] Laboratory - Chemistry and C hemistry - challengeOrdered By: Lolis Todd on 08-06-2022 CO2 [Moles/Vol] 20.0 mmol/L 21.0-32.0 [facility] Urea nitrogen/Creatinine [Mass ratio] 28.9 mg/mg 10-20 [facility] Laboratory - Hematology and Cell countsOrdered By: Lolis Todd on 08-06-2022 Erythrocyte distribution width (RBC) [Entitic vol] 47.3 fL 35.1-43.9 [facility] Erythrocyte distribution width (RBC) [Ratio] 13.4 % 11.6-14.6 [facility] Immature granulocytes/100 WBC (Bld) 0.300 % 0.0-0.9 [facility] Comment on above: IG% - Immature Granu locytes (promyelocytes, myelocytes and metamyelocytes) > 1% indicates that a LEFT SHIFT is Present. MCH (RBC) [Entitic mass] 31.9 pg 27.0-32.0 [facility] Nucleated RBC/100 WBC (Bld) [Ratio] 0 % 0-5 [facility] MCHC Auto (RBC) [Mass/Vol]Or dered By: Lolis Todd on 08-06-2022 MCHC (RBC) [Mass/Vol] 33.0 g/dL 32-36 [facility] No Panel InformationOrdered By: Dr. Ortez on 08-06-2022 Troponin I High Sensitivity 7 pg/mL 3.0-54.0 [facility] Comment on above: Please Note: [place] t Units and Gender Specific Reference Ranges. For more information see Policy Stat Procedure [place] High Sensitivity Troponin (TNIH) and attachments. No Panel InformationOrdered By: Lolis Todd on 08-06-2022 Estimated GFR (MDRD) Amer 85 mL/min >60 [facility] Comment on above: GFR Calc Estimated GFR (MDRD) Non-Af Amer 70 mL/min >60 [facility] Comment on above: Non- GFR Calc Platelets bldOrdered By: Umberto Todd on 08-06-2022 Platelets (Bld) [#/Vol] 198 10*3/uL 150-450 [facility] Serum or plasma calcium oliver urement (mass/volume)Ordered By: Lolis Todd on 08-06-2022 Calcium [Mass/Vol] 9.2 mg/dL 8.5-10.1 [facility] Serum or plasma creatinine m easurement (mass/volume)Ordered By: Lolis Todd on 08-06-2022 Creatinine [Mass/Vol] 0.90 mg/dL 0.55-1.02 [facility] Comment on above: The validity of the calculated GFR & GFRAA in patients over 70 years has not been determined. Clinical correlation is essential. Serum or plasma urea nitroge n measurement (mass/volume)Ordered By: Lolis Todd on 08-06-2022 Urea nitrogen [Mass/Vol] 26 mg/dL 7-18 [facility] Thin prep Papanicolaou smear with manual screeningOrdered By: Lolis Todd on 08-06-2022 Thin prep Papanicolaou smear with manual screening 9 5-15 [facility] Laboratory - Chemistry and C hemistry - challengeOrdered By: Mike Tom on 07-30-2022 Free T4 [Mass/Vol] 0.94 ng/dL 0.76-1.46 [facility] No Panel InformationOrdered By: Mike Tom on 07-30-2022 Free Triiodothyronine (T3) pg/dL 2.6 pg/mL 2.18-3.98 [facility] Thyroid Stimulating Hormone (TSH) 0.66 uIU/mL 0.358-3.74 [facility] Laboratory - Chemistry and C hemistry - challengeOrdered By: Mike Tom on 06-03-2022 Free T4 [Mass/Vol] 0.94 ng/dL 0.76-1.46 [facility] No Panel InformationOrdered By: Mike Tom on 06-03-2022 Free Triiodothyronine (T3) pg/dL 3.0 pg/mL 2.18-3.98 [facility] Thyroid Stimulating Hormone (TSH) 0.06 uIU/mL 0.358-3.74 [facility] Culture, urineOrdered By: Dr Francisco Baird on 05-27-2022 Bacteria identified Cx Nom (U) Presumptive E. coli [facility] Serum or plasma thyroperoxid ase antibody assay (units/volume)Ordered By: Dr. Hancock on 05-18-2022 TPO Ab Qn [IU]/mL 0-34 [facility] Comment on above: Performed at: [address] [id number] Director: Linn Tristan MD, Phone: [phone] at: [address] [id number] Director: Vargas Kim PhD, Phone: [phone] Thyroid stimulating immunogl obulins detectionOrdered By: Dr. Hancock on 05-18-2022 Thyroid stimulating immunoglobulins Ql (S) <0.10 IU/L 0.00-0.55 [facility] Laboratory - Chemistry and C hemistry - challengeOrdered By: Mike Tom on 05-06-2022 Free T4 [Mass/Vol] 1.00 ng/dL 0.76-1.46 [facility] Laboratory - Hematology and Cell countson 05-06-2022 HbA1c (Bld) [Mass fraction] 8.7 % [facility] No Panel InformationOrdered By: Mike Tom on 05-06-2022 Free Triiodothyronine (T3) pg/dL 3.4 pg/mL 2.18-3.98 [facility] Thyroid Stimulating Hormone (TSH) 0.01 uIU/mL 0.358-3.74 [facility] Basophil percentageOrdered B y: Bryan Mitchell on 04-13-2022 Chloride [Moles/Vol] 109 mmol/L 98-107 [facility] Glucose [Mass/Vol] 218 mg/dL 74-106 [facility] Comment on above: Glucose result great er than or equal to 200 mg/dLsuggests DIABETES MELLITUS per A.D.A. criteria. Potassium [Moles/Vol] 3.9 mmol/L 3.5-5.1 [facility] Sodium [Moles/Vol] 140 mmol/L 136-145 [facility] Laboratory - Chemistry and C hemistry - challengeOrdered By: Bryan Mitchell on 04-13-2022 CO2 [Moles/Vol] 24.0 mmol/L 21.0-32.0 [facility] Natriuretic peptide B (Bld) [Mass/Vol] 87.5 pg/mL 0-100 [facility] Urea nitrogen/Creatinine [Mass ratio] 18.9 mg/mg 10-20 [facility] No Panel InformationOrdered By: Bryan Mitchell on 04-13-2022 Estimated GFR (MDRD) Amer 91 mL/min >60 [facility] Comment on above: GFR Calc Estimated GFR (MDRD) Non-Af Amer 75 mL/min >60 [facility] Comment on above: Non- GFR Calc Serum or plasma calcium oliver urement (mass/volume)Ordered By: Bryan Mitchell on 04-13-2022 Calcium [Mass/Vol] 8.8 mg/dL 8.5-10.1 [facility] Serum or plasma creatinine m easurement (mass/volume)Ordered By: Bryan Mitchell on 04-13-2022 Creatinine [Mass/Vol] 0.85 mg/dL 0.55-1.02 [facility] Comment on above: The validity of the calculated GFR & GFRAA in patients over 70 years has not been determined. Clinical correlation is essential. Serum or plasma urea nitroge n measurement (mass/volume)Ordered By: Bryan Mitchell on 04-13-2022 Urea nitrogen [Mass/Vol] 16 mg/dL 7-18 [facility] Thin prep Papanicolaou smear with manual screeningOrdered By: Bryan Mitchell on 04-13-2022 Thin prep Papanicolaou smear with manual screening 7 5-15 [facility] Absolute lymphocyte countOrd ered By: Dr. Ortez on 04-05-2022 Lymphocytes Auto (Unsp spec) [#/Vol] 2.06 10*3/uL 0.83-4.51 [facility] Basophil percentageOrdered B y: Dr. Ortez on 04-05-2022 Basophils/100 WBC (Bld) 0.3 % 0-1 [facility] Chloride [Moles/Vol] 112 mmol/L 98-107 [facility] [facility] Eosinophils/100 WBC (Bld) 0.6 % 0-5 [facility] Glucose [Mass/Vol] 256 mg/dL 74-106 [facility] Comment on above: Glucose result great er than or equal to 200 mg/dLsuggests DIABETES MELLITUS per A.D.A. criteria. Neutrophils (Bld) [#/Vol] 3.7 10*3/uL 2.0-7.7 [facility] Neutrophils/100 WBC (Bld) 59.8 % 47-70 [facility] Potassium [Moles/Vol] 3.5 mmol/L 3.5-5.1 [facility] Sodium [Moles/Vol] 141 mmol/L 136-145 [facility] WBC (Bld) [#/Vol] 6.2 10*3/uL 4.4-11.0 [facility] Blood erythrocytes count (nu mber/volume)Ordered By: Dr. Ortez on 04-05-2022 RBC (Bld) [#/Vol] 4.61 10*6/uL 4.2-5.[address] [facility] Blood hemoglobin measurement (mass/volume)Ordered By: Dr. Ortez on 04-05-2022 Hemoglobin (Bld) [Mass/Vol] 14.8 g/dL 12.0-15.0 [facility] Blood lymphocytes/100 leukoc ytesOrdered By: Dr. Ortez on 04-05-2022 Lymphocytes/100 WBC (Bld) 33.2 % 19-41 [facility] Blood monocytes/100 leukocyt esOrdered By: Dr. Ortez on 04-05-2022 Monocytes/100 WBC (Bld) 5.8 % 0-10 [facility] Blood platelet mean volumeOr dered By: Dr. Ortez on 04-05-2022 Platelet mean volume (Bld) [Entitic vol] 9.8 fL 6.2-12.0 [facility] Determination of erythrocyte mean corpuscular volume (MCV)Ordered By: Dr. Ortez on 04-05-2022 MCV (RBC) [Entitic vol] 91.8 fL 81-99 [facility] Hematocrit Auto (Bld) [Volum e fraction]Ordered By: Dr. Ortez on 04-05-2022 Hematocrit (Bld) [Volume fraction] 42.3 % 37-47 [facility] Laboratory - Chemistry and C hemistry - challengeOrdered By: Dr. Ortez on 04-05-2022 CO2 [Moles/Vol] 19.0 mmol/L 21.0-32.0 [facility] Urea nitrogen/Creatinine [Mass ratio] 25.4 mg/mg 10-20 [facility] Laboratory - Hematology and Cell countsOrdered By: Dr. Ortez on 04-05-2022 Erythrocyte distribution width (RBC) [Entitic vol] 48.6 fL 35.1-43.9 [facility] Erythrocyte distribution width (RBC) [Ratio] 14.5 % 11.6-14.6 [facility] Immature granulocytes/100 WBC (Bld) 0.300 % 0.0-0.9 [facility] Comment on above: IG% - Immature Granu locytes (promyelocytes, myelocytes and metamyelocytes) > 1% indicates that a LEFT SHIFT is Present. MCH (RBC) [Entitic mass] 32.1 pg 27.0-32.0 [facility] Nucleated RBC/100 WBC (Bld) [Ratio] 0 % 0-5 [facility] MCHC Auto (RBC) [Mass/Vol]Or dered By: Dr. Ortez on 04-05-2022 MCHC (RBC) [Mass/Vol] 35.0 g/dL 32-36 [facility] No Panel InformationOrdered By: Dr. Ortez on 04-05-2022 Troponin I High Sensitivity 9 pg/mL 3.0-54.0 [facility] Comment on above: Please Note: [place] Units and Gender Specific Reference Ranges. For more information see Policy Stat Procedure [place] High Sensitivity Troponin (TNIH) and attachments. Estimated Creatinine Clearance Calc 63.14 ml/min [facility] Estimated GFR (MDRD) Amer 84 mL/min >60 [facility] Comment on above: GFR Calc Estimated GFR (MDRD) Non-Af Amer 69 mL/min >60 [facility] Comment on above: Non- GFR Calc Platelets bldOrdered By: Dr. Ortez on 04-05-2022 Platelets (Bld) [#/Vol] 209 10*3/uL 150-450 [facility] Serum or plasma calcium oliver urement (mass/volume)Ordered By: Dr. Ortez on 04-05-2022 Calcium [Mass/Vol] 9.1 mg/dL 8.5-10.1 [facility] Serum or plasma creatinine m easurement (mass/volume)Ordered By: Dr. Ortez on 04-05-2022 Creatinine [Mass/Vol] 0.90 mg/dL 0.55-1.02 [facility] Comment on above: The validity of the calculated GFR & GFRAA in patients over 70 years has not been determined. Clinical correlation is essential. Serum or plasma urea nitroge n measurement (mass/volume)Ordered By: Dr. Ortez on 04-05-2022 Urea nitrogen [Mass/Vol] 23 mg/dL 7-18 [facility] Thin prep Papanicolaou smear with manual screeningOrdered By: Dr. Ortez on 04-05-2022 Thin prep Papanicolaou smear with manual screening 10 5-15 [facility] Absolute lymphocyte counton 02-24-2022 Lymphocytes Auto (Unsp spec) [#/Vol] 2.98 10*3/uL 0.83-4.51 [facility] Work Phone: Basophil percentageon 2021 Basophils/100 WBC (Bld) 0.3 % 0-1 [facility] Work Phone: Chloride [Moles/Vol] 108 mmol/L 98-107 [facility] Work Phone: Eosinophils/100 WBC (Bld) 1.0 % 0-5 [facility] Work Phone: Glucose [Mass/Vol] 161 mg/dL 74-106 [facility] Work Phone: Comment on above: Fasting Glucose resu lt greater than or equal to 126 mg/dL suggests DIABETES MELLITUS per A.D.A. criteria. Neutrophils (Bld) [#/Vol] 3.3 10*3/uL 2.0-7.7 [facility] Work Phone: Neutrophils/100 WBC (Bld) 48.3 % 47-70 [facility] Work Phone: Potassium [Moles/Vol] 4.0 mmol/L 3.5-5.1 [facility] Work Phone: Sodium [Moles/Vol] 138 mmol/L 136-145 [facility] Work Phone: WBC (Bld) [#/Vol] 6.9 10*3/uL 4.4-11.0 [facility] Work Phone: Blood erythrocytes count (nu mber/volume)on 02-24-2022 RBC (Bld) [#/Vol] 4.75 10*6/uL 4.2-5.4 [facility] Work Phone: Blood hemoglobin measurement (mass/volume)on 02-24-2022 Hemoglobin (Bld) [Mass/Vol] 14.3 g/dL 12.0-15.0 [facility] Work Phone: Blood lymphocytes/100 leukoc yteson 02-24-2022 Lymphocytes/100 WBC (Bld) 43.1 % 19-41 [facility] Work Phone: Blood monocytes/100 leukocyt eson 02-24-2022 Monocytes/100 WBC (Bld) 7.2 % 0-10 [facility] Work Phone: Blood platelet mean volumeon 02-24-2022 Platelet mean volume (Bld) [Entitic vol] 9.4 fL 6.2-12.0 [facility] Work Phone: Determination of erythrocyte mean corpuscular volume (MCV)on 02-24-2022 MCV (RBC) [Entitic vol] 92.0 fL 81-99 [facility] Work Phone: Hematocrit Auto (Bld) [Volum e fraction]on 02-24-2022 Hematocrit (Bld) [Volume fraction] 43.7 % 37-47 [facility] Work Phone: Laboratory - Chemistry and C hemistry - challengeon 02-24-2022 CO2 [Moles/Vol] 23.0 mmol/L 21.0-32.0 [facility] Work Phone: Free T4 [Mass/Vol] 1.12 ng/dL 0.76-1.46 [facility] Work Phone: Natriuretic peptide B (Bld) [Mass/Vol] 15.7 pg/mL 0-100 [facility] Work Phone: Urea nitrogen/Creatinine [Mass ratio] 27.2 mg/mg 10-20 [facility] Work Phone: Laboratory - Hematology and Cell countson 02-24-2022 Erythrocyte distribution width (RBC) [Entitic vol] 48.5 fL 35.1-43.9 [facility] Work Phone: Erythrocyte distribution width (RBC) [Ratio] 14.4 % 11.6-14.6 [facility] Work Phone: Immature granulocytes/100 WBC (Bld) 0.100 % 0.0-0.9 [facility] Work Phone: Comment on above: IG% - Immature Granu locytes (promyelocytes, myelocytes and metamyelocytes) > 1% indicates that a LEFT SHIFT is Present. MCH (RBC) [Entitic mass] 30.1 pg 27.0-32.0 [facility] Work Phone: Nucleated RBC/100 WBC (Bld) [Ratio] 0 % 0-5 [facility] Work Phone: MCHC Auto (RBC) [Mass/Vol]on 02-24-2022 MCHC (RBC) [Mass/Vol] 32.7 g/dL 32-36 [facility] Work Phone: No Panel Informationon 02-24 Estimated GFR (MDRD) Amer 83 mL/min >60 [facility] Work Phone: Comment on above: GFR Calc Estimated GFR (MDRD) Non-Af Amer 68 mL/min >60 [facility] Work Phone: Comment on above: Non- GFR Calc Thyroid Stimulating Hormone (TSH) 0.01 uIU/mL 0.358-3.74 [facility] Work Phone: Platelets bldon 02-24-2022 Platelets (Bld) [#/Vol] 273 10*3/uL 150-450 [facility] Work Phone: Serum or plasma calcium oliver urement (mass/volume)on 02-24-2022 Calcium [Mass/Vol] 9.8 mg/dL 8.5-10.1 [facility] Work Phone: Serum or plasma creatinine m easurement (mass/volume)on 02-24-2022 Creatinine [Mass/Vol] 0.92 mg/dL 0.55-1.02 [facility] Work Phone: Comment on above: The validity of the calculated GFR & GFRAA in patients over 70 years has not been determined. Clinical correlation is essential. Serum or plasma urea nitroge n measurement (mass/volume)on 02-24-2022 Urea nitrogen [Mass/Vol] 25 mg/dL 7-18 [facility] Work Phone: Thin prep Papanicolaou smear with manual screeningon 02-24-2022 Thin prep Papanicolaou smear with manual screening 7 5-15 [facility] Work Phone: Absolute lymphocyte counton 01-24-2022 Lymphocytes Auto (Unsp spec) [#/Vol] 2.78 10*3/uL 0.83-4.51 [facility] Work Phone: Basophil percentageon 2021 Basophils/100 WBC (Bld) 0.2 % 0-1 [facility] Work Phone: Chloride [Moles/Vol] 112 mmol/L 98-107 [facility] Work Phone: Eosinophils/100 WBC (Bld) 1.1 % 0-5 [facility] Work Phone: Glucose [Mass/Vol] 166 mg/dL 74-106 [facility] Work Phone: Comment on above: Fasting Glucose resu lt greater than or equal to 126 mg/dL suggests DIABETES MELLITUS per A.D.A. criteria. Neutrophils (Bld) [#/Vol] 3.2 10*3/uL 2.0-7.7 [facility] Work Phone: [phone] Neutrophils/100 WBC (Bld) 49.0 % 47-70 [facility] Work Phone: Potassium [Moles/Vol] 3.7 mmol/L 3.5-5.1 [facility] Work Phone: [phone] Sodium [Moles/Vol] 142 mmol/L 136-145 [facility] Work Phone: WBC (Bld) [#/Vol] 6.4 10*3/uL 4.4-11.0 [facility] Work Phone: Blood erythrocytes count (nu mber/volume)on 01-24-2022 RBC (Bld) [#/Vol] 4.41 10*6/uL 4.2-5.[address] [facility] Work Phone: Blood hemoglobin measurement (mass/volume)on 01-24-2022 Hemoglobin (Bld) [Mass/Vol] 13.5 g/dL 12.0-15.0 [facility] Work Phone: [phone] Blood lymphocytes/100 leukoc yteson 01-24-2022 Lymphocytes/100 WBC (Bld) 43.3 % 19-41 [facility] Work Phone: [phone] Blood monocytes/100 leukocyt eson 01-24-2022 Monocytes/100 WBC (Bld) 6.1 % 0-10 [facility] Work Phone: Blood platelet mean volumeon 01-24-2022 Platelet mean volume (Bld) [Entitic vol] 9.8 fL 6.2-12.0 [facility] Work Phone: Determination of erythrocyte mean corpuscular volume (MCV)on 01-24-2022 MCV (RBC) [Entitic vol] 89.6 fL 81-99 [facility] Work Phone: Hematocrit Auto (Bld) [Volum e fraction]on 01-24-2022 Hematocrit (Bld) [Volume fraction] 39.5 % 37-47 [facility] Work Phone: Laboratory - Chemistry and C hemistry - challengeon 01-24-2022 CO2 [Moles/Vol] 23.0 mmol/L 21.0-32.0 [facility] Work Phone: Lipase [Catalytic activity/Vol] 284 U/L 73-393 [facility] Work Phone: Urea nitrogen/Creatinine [Mass ratio] 22.5 mg/mg 10-20 [facility] Work Phone: Laboratory - Hematology and Cell countson 01-24-2022 Erythrocyte distribution width (RBC) [Entitic vol] 42.0 fL 35.1-43.9 [facility] Work Phone: Erythrocyte distribution width (RBC) [Ratio] 12.8 % 11.6-14.6 [facility] Work Phone: Immature granulocytes/100 WBC (Bld) 0.300 % 0.0-0.9 [facility] Work Phone: Comment on above: IG% - Immature Granu locytes (promyelocytes, myelocytes and metamyelocytes) > 1% indicates that a LEFT SHIFT is Present. MCH (RBC) [Entitic mass] 30.6 pg 27.0-32.0 [facility] Work Phone: Nucleated RBC/100 WBC (Bld) [Ratio] 0 % 0-5 [facility] Work Phone: MCHC Auto (RBC) [Mass/Vol]on 01-24-2022 MCHC (RBC) [Mass/Vol] 34.2 g/dL 32-36 [facility] Work Phone: No Panel Informationon 01-24 Troponin I High Sensitivity 10 pg/mL 3.0-54.0 [facility] Work Phone: Comment on above: Please Note: [place] t Units and Gender Specific Reference Ranges. For more information see Policy Stat Procedure [place] High Sensitivity Troponin (TNIH) and attachments. D-Dimer Quantitative (PE/DVT) 0.45 FEU/ug/m 0.27-0.49 [facility] Work Phone: Comment on above: NORMAL D-Dimer level (<0.50) indicates no DVT or PE. Estimated Creatinine Clearance Calc 57.99 ml/min [facility] Work Phone: Estimated GFR (MDRD) Amer 77 mL/min >60 [facility] Work Phone: Comment on above: GFR Calc Estimated GFR (MDRD) Non-Af Amer 64 mL/min >60 [facility] Work Phone: Comment on above: Non- GFR Calc Platelets bldon 01-24-2022 Platelets (Bld) [#/Vol] 201 10*3/uL 150-450 [facility] Work Phone: Serum or plasma calcium oliver urement (mass/volume)on 01-24-2022 Calcium [Mass/Vol] 8.9 mg/dL 8.5-10.1 [facility] Work Phone: Serum or plasma creatinine m easurement (mass/volume)on 01-24-2022 Creatinine [Mass/Vol] 0.98 mg/dL 0.55-1.02 [facility] Work Phone: Comment on above: The validity of the calculated GFR & GFRAA in patients over 70 years has not been determined. Clinical correlation is essential. Serum or plasma urea nitroge n measurement (mass/volume)on 01-24-2022 Urea nitrogen [Mass/Vol] 22 mg/dL 7-18 [facility] Work Phone: Thin prep Papanicolaou smear with manual screeningon 01-24-2022 Thin prep Papanicolaou smear with manual screening 7 5-15 [facility] Work Phone: Absolute lymphocyte counton 11-17-2021 Lymphocytes Auto (Unsp spec) [#/Vol] 2.16 10*3/uL 0.83-4.51 [facility] Work Phone: Basophil percentageon 2021 Lactate [Moles/Vol] 2.1 mmol/L 0.4-2.[address] [facility] Work Phone: Comment on above: Critical Result(s) C alled at: 06:10:00 11/17/2021 by: Félix Hardy. Ivan Haji 2 RN (ER). Results read back by same. Basophils/100 WBC (Bld) 0.2 % 0-1 [facility] Work Phone: Chloride [Moles/Vol] 109 mmol/L 98-107 [facility] Work Phone: Eosinophils/100 WBC (Bld) 1.0 % 0-5 [facility] Work Phone: Glucose [Mass/Vol] 305 mg/dL 74-106 [facility] Work Phone: Comment on above: Glucose result great er than or equal to 200 mg/dLsuggests DIABETES MELLITUS per A.D.A. criteria. Neutrophils (Bld) [#/Vol] 2.4 10*3/uL 2.0-7.7 [facility] Work Phone: Neutrophils/100 WBC (Bld) 48.2 % 47-70 [facility] Work Phone: [phone] Potassium [Moles/Vol] 3.6 mmol/L 3.5-5.1 [facility] Work Phone: Sodium [Moles/Vol] 140 mmol/L 136-145 [facility] Work Phone: WBC (Bld) [#/Vol] 4.9 10*3/uL 4.4-11.0 [facility] Work Phone: Blood erythrocytes count (nu mber/volume)on 11-17-2021 RBC (Bld) [#/Vol] 3.51 10*6/uL 4.2-5.[address] [facility] Work Phone: Blood hemoglobin measurement (mass/volume)on 11-17-2021 Hemoglobin (Bld) [Mass/Vol] 10.7 g/dL 12.0-15.0 [facility] Work Phone: Blood lymphocytes/100 leukoc yteson 11-17-2021 Lymphocytes/100 WBC (Bld) 44.3 % 19-41 [facility] Work Phone: Blood monocytes/100 leukocyt eson 11-17-2021 Monocytes/100 WBC (Bld) 6.1 % 0-10 [facility] Work Phone: Blood platelet mean volumeon 11-17-2021 Platelet mean volume (Bld) [Entitic vol] 9.7 fL 6.2-12.0 [facility] Work Phone: Determination of erythrocyte mean corpuscular volume (MCV)on 11-17-2021 MCV (RBC) [Entitic vol] 94.9 fL 81-99 [facility] Work Phone: Hematocrit Auto (Bld) [Volum e fraction]on 11-17-2021 Hematocrit (Bld) [Volume fraction] 33.3 % 37-47 [facility] Work Phone: Laboratory - Chemistry and C hemistry - challengeon 11-17-2021 CO2 [Moles/Vol] 25.0 mmol/L 21.0-32.0 [facility] Work Phone: Urea nitrogen/Creatinine [Mass ratio] 17.6 mg/mg 10-20 [facility] Work Phone: Laboratory - Hematology and Cell countson 11-17-2021 Erythrocyte distribution width (RBC) [Entitic vol] 50.0 fL 35.1-43.9 [facility] Work Phone: Erythrocyte distribution width (RBC) [Ratio] 14.6 % 11.6-14.6 [facility] Work Phone: Immature granulocytes/100 WBC (Bld) 0.200 % 0.0-0.9 [facility] Work Phone: Comment on above: IG% - Immature Granu locytes (promyelocytes, myelocytes and metamyelocytes) > 1% indicates that a LEFT SHIFT is Present. MCH (RBC) [Entitic mass] 30.5 pg 27.0-32.0 [facility] Work Phone: Nucleated RBC/100 WBC (Bld) [Ratio] 0 % 0-5 [facility] Work Phone: MCHC Auto (RBC) [Mass/Vol]on 11-17-2021 MCHC (RBC) [Mass/Vol] 32.1 g/dL 32-36 [facility] Work Phone: No Panel Informationon 11-17 Estimated Creatinine Clearance Calc 45.98 ml/min [facility] Work Phone: Estimated GFR (MDRD) Amer 58 mL/min >60 [facility] Work Phone: Comment on above: GFR Calc Estimated GFR (MDRD) Non-Af Amer 48 mL/min >60 [facility] Work Phone: Comment on above: Non- GFR Calc Troponin I High Sensitivity 9 pg/mL 3.0-54.0 [facility] Work Phone: Comment on above: Please Note: [place] Units and Gender Specific Reference Ranges. For more information see Policy Stat Procedure [place] High Sensitivity Troponin (TNIH) and attachments. Platelets bldon 11-17-2021 Platelets (Bld) [#/Vol] 230 10*3/uL 150-450 [facility] Work Phone: Serum or plasma calcium oliver urement (mass/volume)on 11-17-2021 Calcium [Mass/Vol] 8.9 mg/dL 8.5-10.1 [facility] Work Phone: Serum or plasma creatinine m easurement (mass/volume)on 11-17-2021 Creatinine [Mass/Vol] 1.25 mg/dL 0.55-1.02 [facility] Work Phone: Comment on above: The validity of the calculated GFR & GFRAA in patients over 70 years has not been determined. Clinical correlation is essential. Serum or plasma urea nitroge n measurement (mass/volume)on 11-17-2021 Urea nitrogen [Mass/Vol] 22 mg/dL 7-18 [facility] Work Phone: Thin prep Papanicolaou smear with manual screeningon 11-17-2021 Thin prep Papanicolaou smear with manual screening 6 5-15 [facility] Work Phone: Absolute lymphocyte counton 11-06-2021 Lymphocytes Auto (Unsp spec) [#/Vol] 1.86 10*3/uL 0.83-4.51 [facility] Work Phone: Amorphous sediment detection in urine sediment by light microscopyon 11-06-2021 Amorphous sediment LM Ql (Urine sed) 1+ URATE [facility] Work Phone: Basophil percentageon 2021 Basophil percentage 25-50 SEEN /hpf 0-5 [facility] Work Phone: [phone] Basophils/100 WBC (Bld) 0.2 % 0-1 [facility] Work Phone: Chloride [Moles/Vol] 113 mmol/L 98-107 [facility] Work Phone: Eosinophils/100 WBC (Bld) 0.8 % 0-5 [facility] Work Phone: Glucose [Mass/Vol] 124 mg/dL 74-106 [facility] Work Phone: Comment on above: Fasting Glucose resu lt from 100 to 125 mg/dL suggests IMPAIRED HOMEOSTASIS per A.D.A. criteria. Neutrophils (Bld) [#/Vol] 4.0 10*3/uL 2.0-7.7 [facility] Work Phone: [phone] Neutrophils/100 WBC (Bld) 63.7 % 47-70 [facility] Work Phone: Potassium [Moles/Vol] 3.9 mmol/L 3.5-5.1 [facility] Work Phone: Comment on above: Slight Hemolysis, Re sult may be falsely increased. Sodium [Moles/Vol] 142 mmol/L 136-145 [facility] Work Phone: WBC (Bld) [#/Vol] 6.3 10*3/uL 4.4-11.0 [facility] Work Phone: Bilirubin Test strip Ql (U)o n 11-06-2021 Bilirubin Ql (U) 1 mg/dL Negative [facility] Work Phone: Comment on above: COLOR OF URINE MAY A FFECT DIPSTICK RESULTS. Blood erythrocytes count (nu mber/volume)on 11-06-2021 RBC (Bld) [#/Vol] 3.49 10*6/uL 4.2-5.[address] [facility] Work Phone: Blood hemoglobin measurement (mass/volume)on 11-06-2021 Hemoglobin (Bld) [Mass/Vol] 10.9 g/dL 12.0-15.0 [facility] Work Phone: Blood lymphocytes/100 leukoc yteson 11-06-2021 Lymphocytes/100 WBC (Bld) 29.7 % 19-41 [facility] Work Phone: Blood monocytes/100 leukocyt eson 11-06-2021 Monocytes/100 WBC (Bld) 5.4 % 0-10 [facility] Work Phone: Blood platelet mean volumeon 11-06-2021 Platelet mean volume (Bld) [Entitic vol] 9.7 fL 6.2-12.0 [facility] Work Phone: Determination of erythrocyte mean corpuscular volume (MCV)on 11-06-2021 MCV (RBC) [Entitic vol] 93.1 fL 81-99 [facility] Work Phone: Hematocrit Auto (Bld) [Volum e fraction]on 11-06-2021 Hematocrit (Bld) [Volume fraction] 32.5 % 37-47 [facility] Work Phone: Ketones Test strip Ql (U)on 11-06-2021 Ketones Ql (U) Negative Negative [facility] Work Phone: Laboratory - Chemistry and C hemistry - challengeon 11-06-2021 CO2 [Moles/Vol] 22.0 mmol/L 21.0-32.0 [facility] Work Phone: Natriuretic peptide B (Bld) [Mass/Vol] 204.9 pg/mL 0-100 [facility] Work Phone: Urea nitrogen/Creatinine [Mass ratio] 18.3 mg/mg 10-20 [facility] Work Phone: Laboratory - Hematology and Cell countson 11-06-2021 Erythrocyte distribution width (RBC) [Entitic vol] 48.6 fL 35.1-43.9 [facility] Work Phone: Erythrocyte distribution width (RBC) [Ratio] 14.4 % 11.6-14.6 [facility] Work Phone: Immature granulocytes/100 WBC (Bld) 0.200 % 0.0-0.9 [facility] Work Phone: Comment on above: IG% - Immature Granu locytes (promyelocytes, myelocytes and metamyelocytes) > 1% indicates that a LEFT SHIFT is Present. MCH (RBC) [Entitic mass] 31.2 pg 27.0-32.0 [facility] Work Phone: Nucleated RBC/100 WBC (Bld) [Ratio] 0 % 0-5 [facility] Work Phone: MCHC Auto (RBC) [Mass/Vol]on 11-06-2021 MCHC (RBC) [Mass/Vol] 33.5 g/dL 32-36 [facility] Work Phone: Mucus LM Ql (Urine sed)on Mucus Ql (Urine sed) 0 SEEN /hpf [facility] Work Phone: Nitrite Test strip Ql (U)on 11-06-2021 Nitrite Ql (U) Positive Negative [facility] Work Phone: No Panel Informationon 11-06 SARS-CoV-2 & FLU Antigen (Rapid) [facility] Work Phone: Estimated Creatinine Clearance Calc 52.73 ml/min [facility] Work Phone: Estimated GFR (MDRD) Amer 68 mL/min >60 [facility] Work Phone: Comment on above: GFR Calc Estimated GFR (MDRD) Non-Af Amer 56 mL/min >60 [facility] Work Phone: Comment on above: Non- GFR Calc Troponin I High Sensitivity 4 pg/mL 3.0-54.0 [facility] Work Phone: Comment on above: Please Note: New [place] t Units and Gender Specific Reference Ranges. For more information see Policy Stat Procedure [place] High Sensitivity Troponin (TNIH) and attachments. Platelets bldon 11-06-2021 Platelets (Bld) [#/Vol] 222 10*3/uL 150-450 [facility] Work Phone: Protein Test strip Ql (U)on 11-06-2021 Protein Ql (U) 30 mg/dl Negative [facility] Work Phone: Serum or plasma calcium oliver urement (mass/volume)on 11-06-2021 Calcium [Mass/Vol] 9.2 mg/dL 8.5-10.1 [facility] Work Phone: Serum or plasma creatinine m easurement (mass/volume)on 11-06-2021 Creatinine [Mass/Vol] 1.09 mg/dL 0.55-1.02 [facility] Work Phone: Comment on above: The validity of the calculated GFR & GFRAA in patients over 70 years has not been determined. Clinical correlation is essential. Serum or plasma urea nitroge n measurement (mass/volume)on 11-06-2021 Urea nitrogen [Mass/Vol] 20 mg/dL 7-18 [facility] Work Phone: Squamous epithelial cells de tection in urine sediment by light microscopyon 11-06-2021 Epithelial cells.squamous LM Ql (Urine sed) 0-5 SEEN /hpf 5-10 [facility] Work Phone: Thin prep Papanicolaou smear with manual screeningon 11-06-2021 Thin prep Papanicolaou smear with manual screening 7 5-15 [facility] Work Phone: Urine blood detectionon 06-0 RBC Ql (U) 150 /ul Negative [facility] Work Phone: RBC Ql (U) 10-25 SEEN /hpf 0-5 [facility] Work Phone: Urine clarityon 11-06-2021 Clarity (U) Sl. Cloudy Clear [facility] Work Phone: Urine color determinationon 11-06-2021 Color (U) Yellow Yellow [facility] Work Phone: Urine glucose detectionon Glucose Ql (U) 1000 mg/dl Normal [facility] Work Phone: Urine leukocyte esterase det ection by dipstickon 11-06-2021 Leukocyte esterase Test strip Ql (U) 100 /ul Negative [facility] Work Phone: Urine pHon 11-06-2021 pH (U) 6.0 [pH] 5.0 - 8.0 [facility] Work Phone: Urine sediment bacteria coun t by microscopy (number/high power field)on 11-06-2021 Bacteria LM.HPF (Urine sed) [#/Area] 1 /[HPF] None Seen [facility] Work Phone: Urine specific gravity measu rementon 11-06-2021 Specific gravity (U) [Rel density] 1.010 1.002-1.030 [facility] Work Phone: Urobilinogen Auto test strip Ql (U)on 11-06-2021 Urobilinogen Ql (U) 4 mg/dl Normal [facility] Work Phone: Laboratory - Drug toxicology on 10-27-2021 Amphetamines Ql (U) Negative [facility] Work Phone: Benzodiazepines Ql (U) Negative [facility] Work Phone: Cannabinoids Screen Ql (U) Negative [facility] Work Phone: Cocaine Ql (U) Negative [facility] Work Phone: Opiates Ql (U) Positive [facility] Work Phone: No Panel Informationon 10-27 MDMA (Ecstasy) Screen Negative [facility] Work Phone: Miscellaneous Test See comment [facility] Work Phone: Comment on above: [id number] 6+OXYCODONE-B UND (ng/mL) DRUG RESULT SCREEN CUTOFF____ [...] UR 755 ng/mL 300 TESTING PERFORMED AT [facility]. ORIGINAL REPORT ON FILE IN LAB CONTAINS ADDITIONAL TEST SITE INFORMATION. Urine Barbiturates Screen Negative [facility] Work Phone: Urine Drug Screen Comment [facility] Work Phone: Comment on above: [...] USE TESTMNEMONIC: [facility] Urine Methadone Screen Negative [facility] Work Phone: Urine phencyclidine (PCP) de tectionon 10-27-2021 Phencyclidine Ql (U) Negative [facility] Work Phone: Absolute lymphocyte counton 09-20-2021 Lymphocytes Auto (Unsp spec) [#/Vol] 1.77 10*3/uL 0.83-4.51 [facility] Work Phone: Basophil percentageon 2021 Bilirubin [Mass/Vol] 0.50 mg/dL 0.20-1.00 [facility] Work Phone: Comment on above: For patients on eltr ombopag therapy, use of Dimension [place] TBIL is not recommended. Chloride [Moles/Vol] 108 mmol/L 98-107 [facility] Work Phone: Glucose [Mass/Vol] 189 mg/dL 74-106 [facility] Work Phone: Comment on above: Fasting Glucose resu lt greater than or equal to 126 mg/dL suggests DIABETES MELLITUS per A.D.A. criteria. Potassium [Moles/Vol] 3.8 mmol/L 3.5-5.1 [facility] Work Phone: Protein [Mass/Vol] 7.3 g/dL 6.4-8.2 [facility] Work Phone: Sodium [Moles/Vol] 141 mmol/L 136-145 [facility] Work Phone: Basophils/100 WBC (Bld) 0.4 % 0-1 [facility] Work Phone: Eosinophils/100 WBC (Bld) 1.5 % 0-5 [facility] Work Phone: Neutrophils (Bld) [#/Vol] 3.3 10*3/uL 2.0-7.7 [facility] Work Phone: Neutrophils/100 WBC (Bld) 59.2 % 47-70 [facility] Work Phone: WBC (Bld) [#/Vol] 5.5 10*3/uL 4.4-11.0 [facility] Work Phone: [phone] Blood erythrocytes count (nu mber/volume)on 09-20-2021 RBC (Bld) [#/Vol] 4.11 10*6/uL 4.2-5.[address] [facility] Work Phone: Blood hemoglobin measurement (mass/volume)on 09-20-2021 Hemoglobin (Bld) [Mass/Vol] 12.6 g/dL 12.0-15.0 [facility] Work Phone: Blood lymphocytes/100 leukoc yteson 09-20-2021 Lymphocytes/100 WBC (Bld) 32.3 % 19-41 [facility] Work Phone: Blood monocytes/100 leukocyt eson 09-20-2021 Monocytes/100 WBC (Bld) 6.2 % 0-10 [facility] Work Phone: Blood platelet mean volumeon 09-20-2021 Platelet mean volume (Bld) [Entitic vol] 10.4 fL 6.2-12.0 [facility] Work Phone: [phone] Determination of erythrocyte mean corpuscular volume (MCV)on 09-20-2021 MCV (RBC) [Entitic vol] 91.7 fL 81-99 [facility] Work Phone: [phone] Hematocrit Auto (Bld) [Volum e fraction]on 09-20-2021 Hematocrit (Bld) [Volume fraction] 37.7 % 37-47 [facility] Work Phone: Laboratory - Chemistry and C hemistry - challengeon 09-20-2021 ALP [Catalytic activity/Vol] 61 U/L 45-117 [facility] Work Phone: ALT [Catalytic activity/Vol] 23 U/L 13-56 [facility] Work Phone: CO2 [Moles/Vol] 26.0 mmol/L 21.0-32.0 [facility] Work Phone: Globulin (S) [Mass/Vol] 4.1 g/dL 2.2-4.2 [facility] Work Phone: Urea nitrogen/Creatinine [Mass ratio] 19.0 mg/mg 10-20 [facility] Work Phone: Laboratory - Hematology and Cell countson 09-20-2021 Erythrocyte distribution width (RBC) [Entitic vol] 43.5 fL 35.1-43.9 [facility] Work Phone: Erythrocyte distribution width (RBC) [Ratio] 12.8 % 11.6-14.6 [facility] Work Phone: Immature granulocytes/100 WBC (Bld) 0.400 % 0.0-0.9 [facility] Work Phone: Comment on above: IG% - Immature Granu locytes (promyelocytes, myelocytes and metamyelocytes) > 1% indicates that a LEFT SHIFT is Present. MCH (RBC) [Entitic mass] 30.7 pg 27.0-32.0 [facility] Work Phone: Nucleated RBC/100 WBC (Bld) [Ratio] 0 % 0-5 [facility] Work Phone: MCHC Auto (RBC) [Mass/Vol]on 09-20-2021 MCHC (RBC) [Mass/Vol] 33.4 g/dL 32-36 [facility] Work Phone: No Panel Informationon 09-20 Estimated Creatinine Clearance Calc 63.04 ml/min [facility] Work Phone: Estimated GFR (MDRD) Amer 80 mL/min >60 [facility] Work Phone: Comment on above: GFR Calc Estimated GFR (MDRD) Non-Af Amer 66 mL/min >60 [facility] Work Phone: Comment on above: Non- GFR Calc Platelets bldon 09-20-2021 Platelets (Bld) [#/Vol] 256 10*3/uL 150-450 [facility] Work Phone: Serum or plasma albumin oliver urement (mass/volume)on 09-20-2021 Albumin [Mass/Vol] 3.2 g/dL 3.2-5.0 [facility] Work Phone: Serum or plasma albumin/glob ulin mass ratioon 09-20-2021 Albumin/Globulin [Mass ratio] 0.8 {ratio} 0.9-2.4 [facility] Work Phone: Serum or plasma calcium oliver urement (mass/volume)on 09-20-2021 Calcium [Mass/Vol] 9.1 mg/dL 8.5-10.1 [facility] Work Phone: Serum or plasma creatinine m easurement (mass/volume)on 09-20-2021 Creatinine [Mass/Vol] 0.95 mg/dL 0.55-1.02 [facility] Work Phone: Comment on above: The validity of the calculated GFR & GFRAA in patients over 70 years has not been determined. Clinical correlation is essential. Serum or plasma urea nitroge n measurement (mass/volume)on 09-20-2021 Urea nitrogen [Mass/Vol] 18 mg/dL 7-18 [facility] Work Phone: Thin prep Papanicolaou smear with manual screeningon 09-20-2021 Thin prep Papanicolaou smear with manual screening 15 U/L 15-37 [facility] Work Phone: Thin prep Papanicolaou smear with manual screening 7 5-15 [facility] Work Phone: Glucose Glucometer (BldC) [M ass/Vol]on 09-16-2021 Glucose [Mass/Vol] 310 mg/dL 74-106 [facility] Work Phone: Comment on above: MANAGEMENT OF PATIEN T CARE PER NURSING PROTOCOL Absolute lymphocyte counton 09-14-2021 Lymphocytes Auto (Unsp spec) [#/Vol] 1.79 10*3/uL 0.83-4.51 [facility] Work Phone: Basophil percentageon 2021 Basophils/100 WBC (Bld) 0.1 % 0-1 [facility] Work Phone: Bilirubin [Mass/Vol] 0.50 mg/dL 0.20-1.00 [facility] Work Phone: Comment on above: For patients on eltr ombopag therapy, use of Dimension [place] TBIL is not recommended. Chloride [Moles/Vol] 107 mmol/L 98-107 [facility] Work Phone: Eosinophils/100 WBC (Bld) 0.2 % 0-5 [facility] Work Phone: Glucose [Mass/Vol] 154 mg/dL 74-106 [facility] Work Phone: Comment on above: Fasting Glucose resu lt greater than or equal to 126 mg/dL suggests DIABETES MELLITUS per A.D.A. criteria. Neutrophils (Bld) [#/Vol] 6.7 10*3/uL 2.0-7.7 [facility] Work Phone: Neutrophils/100 WBC (Bld) 73.2 % 47-70 [facility] Work Phone: Potassium [Moles/Vol] 3.9 mmol/L 3.5-5.1 [facility] Work Phone: Protein [Mass/Vol] 7.0 g/dL 6.4-8.2 [facility] Work Phone: Sodium [Moles/Vol] 137 mmol/L 136-145 [facility] Work Phone: WBC (Bld) [#/Vol] 9.1 10*3/uL 4.4-11.0 [facility] Work Phone: Blood erythrocytes count (nu mber/volume)on 09-14-2021 RBC (Bld) [#/Vol] 4.08 10*6/uL 4.2-5.[address] [facility] Work Phone: Blood hemoglobin measurement (mass/volume)on 09-14-2021 Hemoglobin (Bld) [Mass/Vol] 12.4 g/dL 12.0-15.0 [facility] Work Phone: Blood lymphocytes/100 leukoc yteson 09-14-2021 Lymphocytes/100 WBC (Bld) 19.7 % 19-41 [facility] Work Phone: Blood monocytes/100 leukocyt eson 09-14-2021 Monocytes/100 WBC (Bld) 6.5 % 0-10 [facility] Work Phone: Blood platelet mean volumeon 09-14-2021 Platelet mean volume (Bld) [Entitic vol] 10.6 fL 6.2-12.0 [facility] Work Phone: Determination of erythrocyte mean corpuscular volume (MCV)on 09-14-2021 MCV (RBC) [Entitic vol] 90.2 fL 81-99 [facility] Work Phone: Glucose Glucometer (BldC) [M ass/Vol]on 09-14-2021 Glucose [Mass/Vol] 120 mg/dL 74-106 [facility] Work Phone: Comment on above: MANAGEMENT OF PATIEN T CARE PER NURSING PROTOCOL Hematocrit Auto (Bld) [Volum e fraction]on 09-14-2021 Hematocrit (Bld) [Volume fraction] 36.8 % 37-47 [facility] Work Phone: Laboratory - Chemistry and C hemistry - challengeon 09-14-2021 ALP [Catalytic activity/Vol] 56 U/L 45-117 [facility] Work Phone: ALT [Catalytic activity/Vol] 19 U/L 13-56 [facility] Work Phone: CO2 [Moles/Vol] 24.0 mmol/L 21.0-32.0 [facility] Work Phone: Globulin (S) [Mass/Vol] 3.8 g/dL 2.2-4.2 [facility] Work Phone: Urea nitrogen/Creatinine [Mass ratio] 40.4 mg/mg 10-20 [facility] Work Phone: Laboratory - Hematology and Cell countson 09-14-2021 Erythrocyte distribution width (RBC) [Entitic vol] 43.0 fL 35.1-43.9 [facility] Work Phone: Erythrocyte distribution width (RBC) [Ratio] 13.0 % 11.6-14.6 [facility] Work Phone: Immature granulocytes/100 WBC (Bld) 0.300 % 0.0-0.9 [facility] Work Phone: Comment on above: IG% - Immature Granu locytes (promyelocytes, myelocytes and metamyelocytes) > 1% indicates that a LEFT SHIFT is Present. MCH (RBC) [Entitic mass] 30.4 pg 27.0-32.0 [facility] Work Phone: Nucleated RBC/100 WBC (Bld) [Ratio] 0 % 0-5 [facility] Work Phone: MCHC Auto (RBC) [Mass/Vol]on 09-14-2021 MCHC (RBC) [Mass/Vol] 33.7 g/dL 32-36 [facility] Work Phone: No Panel Informationon 09-14 Estimated Creatinine Clearance Calc 62.47 ml/min [facility] Work Phone: Estimated GFR (MDRD) Amer 83 mL/min >60 [facility] Work Phone: Comment on above: GFR Calc Estimated GFR (MDRD) Non-Af Amer 69 mL/min >60 [facility] Work Phone: Comment on above: Non- GFR Calc Platelets bldon 09-14-2021 Platelets (Bld) [#/Vol] 222 10*3/uL 150-450 [facility] Work Phone: Serum or plasma albumin oliver urement (mass/volume)on 09-14-2021 Albumin [Mass/Vol] 3.2 g/dL 3.2-5.0 [facility] Work Phone: Serum or plasma albumin/glob ulin mass ratioon 09-14-2021 Albumin/Globulin [Mass ratio] 0.8 {ratio} 0.9-2.4 [facility] Work Phone: Serum or plasma calcium oliver urement (mass/volume)on 09-14-2021 Calcium [Mass/Vol] 8.8 mg/dL 8.5-10.1 [facility] Work Phone: Serum or plasma creatinine m easurement (mass/volume)on 09-14-2021 Creatinine [Mass/Vol] 0.92 mg/dL 0.55-1.02 [facility] Work Phone: Comment on above: The validity of the calculated GFR & GFRAA in patients over 70 years has not been determined. Clinical correlation is essential. Serum or plasma urea nitroge n measurement (mass/volume)on 09-14-2021 Urea nitrogen [Mass/Vol] 37 mg/dL 7-18 [facility] Work Phone: Thin prep Papanicolaou smear with manual screeningon 09-14-2021 Thin prep Papanicolaou smear with manual screening 11 U/L 15-37 [facility] Work Phone: Thin prep Papanicolaou smear with manual screening 6 5-15 [facility] Work Phone: Assessment of wrist artery p atency prior to arterial punctureon 09-09-2021 Arterial patency Wrist artery --pre arterial puncture N/A [facility] Work Phone: Base excesson 09-09-2021 Base excess Calc (BldV) [Moles/Vol] -3 mmol/L -2-2 [facility] Work Phone: Basophil percentageon 2021 Cholesterol [Mass/Vol] 134 mg/dL <200 [facility] Work Phone: Comment on above: <200 mg/dL Desirable 200-240 mg/dL Borderline >240 mg/dL High Risk Lactate [Moles/Vol] 2.0 mmol/L 0.4-2.[address] [facility] Work Phone: Comment on above: Critical Result(s) C alled at: 02:39:21 09/09/2021 by: ROBERT Galeano SEROLOGY TEACHER. Results read back by same. Triglyceride [Mass/Vol] 69 mg/dL [facility] Work Phone: Comment on above: The drugs N-Acetylcy steine and Metamizole may falsely depress this assay.Serum Triglycerides Reference Interval Normal <150 mg/dL Borderline high 150 - 199 mg/dL High 200 - 499 mg/dL Very High > or = 500 mg/dL Basophil percentage 22.1 mmol/L 22-26 [facility] Work Phone: Basophils/100 WBC (Bld) 99 % 95-99 [facility] Work Phone: CO2 (BldA) [Partial pressure ]on 09-09-2021 CO2 (Bld) [Partial pressure] 39.1 mm[Hg] 35-45 [facility] Work Phone: No Panel Informationon 09-09 Troponin I High Sensitivity 1525 pg/mL 3.0-54.0 [facility] Work Phone: Comment on above: Critical Result(s) C alled at: 02:39:06 09/09/2021 by: ROBERT Galeano SEROLOGY TEACHER. Results read back by same. Please Note: New Test Units and Gender Specific Reference Ranges. For more information see Policy Stat Procedure [place] High Sensitivity Troponin (TNIH) and attachments. Bedside Blood Gas PEEP 5 [facility] Work Phone: Blood Gas Oxygen Percent 70 [facility] Work Phone: Blood Gas Respiration Rate 14 [facility] Work Phone: Blood Gas Sample Site L [facility] Work Phone: Blood Gas Specimen Type ART [facility] Work Phone: Blood Gas Tidal Volume 450 [facility] Work Phone: Blood Gas Total CO2 23 mmol/L [facility] Work Phone: Blood Gas Vent Mode AC [facility] Work Phone: Oxygen Delivery Device Adult Vent [facility] Work Phone: Oxygen (BldA) [Partial press ure]on 09-09-2021 Oxygen (Bld) [Partial pressure] 125 mmHG 75-100 [facility] Work Phone: Serum or plasma cholesterol in HDL measurement (mass/volume)on 09-09-2021 Cholesterol in HDL [Mass/Vol] 65 mg/dL [facility] Work Phone: Comment on above: The drugs N-Acetylcy steine and Metamizole may falsely depress this assay. Reference Range HDL <40 mg/dL Low HDL Cholesterol HDL >or= 60 mg/dL High HDL Cholesterol Serum or plasma cholesterol in VLDL measurement (mass/volume)on 09-09-2021 Cholesterol in VLDL [Mass/Vol] 14 mg/dL 5-40 [facility] Work Phone: Serum or plasma low density lipoprotein (LDL) cholesterol measurement (mass/volume)on 09-09-2021 Cholesterol in LDL [Mass/Vol] 55 mg/dL 0-130 [facility] Work Phone: pH measurementon 09-09-2021 pH (Unsp spec) 7.36 [pH] 7.35-7.45 [facility] Work Phone: Absolute lymphocyte counton 09-08-2021 Lymphocytes Auto (Unsp spec) [#/Vol] 6.24 10*3/uL 0.83-4.51 [facility] Work Phone: Assessment of wrist artery p atency prior to arterial punctureon 09-08-2021 Arterial patency Wrist artery --pre arterial puncture N/A [facility] Work Phone: Base excesson 09-08-2021 Base excess Calc (BldV) [Moles/Vol] -10 mmol/L -2-2 [facility] Work Phone: Basophil percentageon 2021 Basophil percentage 17.7 mmol/L 22-26 [facility] Work Phone: Basophils/100 WBC (Bld) 96 % 95-99 [facility] Work Phone: Basophils/100 WBC (Bld) 0.4 % 0-1 [facility] Work Phone: Chloride [Moles/Vol] 105 mmol/L 98-107 [facility] Work Phone: Eosinophils/100 WBC (Bld) 0.3 % 0-5 [facility] Work Phone: Glucose [Mass/Vol] 468 mg/dL 74-106 [facility] Work Phone: Comment on above: Critical [...] same. Neutrophils (Bld) [#/Vol] 7.9 10*3/uL 2.0-7.7 [facility] Work Phone: Neutrophils/100 WBC (Bld) 54.0 % 47-70 [facility] Work Phone: Potassium [Moles/Vol] 4.0 mmol/L 3.5-5.1 [facility] Work Phone: Sodium [Moles/Vol] 137 mmol/L 136-145 [facility] Work Phone: WBC (Bld) [#/Vol] 14.7 10*3/uL 4.4-11.[address] [facility] Work Phone: Basophil percentage 0-5 SEEN /hpf [facility] Work Phone: [phone] Bilirubin Test strip Ql (U)o n 09-08-2021 Bilirubin Ql (U) Negative Negative [facility] Work Phone: Blood erythrocytes count (nu mber/volume)on 09-08-2021 RBC (Bld) [#/Vol] 4.74 10*6/uL 4.2-5.[address] [facility] Work Phone: Blood hemoglobin measurement (mass/volume)on 09-08-2021 Hemoglobin (Bld) [Mass/Vol] 14.6 g/dL 12.0-15.0 [facility] Work Phone: Blood lymphocytes/100 leukoc yteson 09-08-2021 Lymphocytes/100 WBC (Bld) 42.3 % 19-41 [facility] Work Phone: Blood manual differential co mment interpretation (narrative result)on 09-08-2021 Manual differential comment Jacob (Bld) [Interp] See comment [facility] Work Phone: Comment on above: LYMPHOCYTOSIS NOTED Blood monocytes/100 leukocyt eson 09-08-2021 Monocytes/100 WBC (Bld) 2.6 % 0-10 [facility] Work Phone: Blood platelet adequacy dete ction by light microscopyon 09-08-2021 Platelets LM Ql (Bld) ADEQUATE ADEQ [facility] Work Phone: Blood platelet mean volumeon 09-08-2021 Platelet mean volume (Bld) [Entitic vol] 10.9 fL 6.2-12.0 [facility] Work Phone: Bronchoalveolar lavage cultu re with Gram stainon 09-08-2021 Respiratory microbial culture or Staphylococcus aureus isolated. [facility] Work Phone: CO2 (BldA) [Partial pressure ]on 09-08-2021 CO2 (Bld) [Partial pressure] 43.9 mm[Hg] 35-45 [facility] Work Phone: Determination of erythrocyte mean corpuscular volume (MCV)on 09-08-2021 MCV (RBC) [Entitic vol] 98.7 fL 81-99 [facility] Work Phone: Gram stain for investigation of transfusion reactionon 09-08-2021 Microscopic observation Gram stain Nom (Unsp spec) [facility] Work Phone: Hematocrit Auto (Bld) [Volum e fraction]on 09-08-2021 Hematocrit (Bld) [Volume fraction] 46.8 % 37-47 [facility] Work Phone: INR in Blood by Coagulation assayon 09-08-2021 INR Coag (Bld) [Relative time] 1.1 {INR} [facility] Work Phone: Ketones Test strip Ql (U)on 09-08-2021 Ketones Ql (U) Negative Negative [facility] Work Phone: Laboratory - Chemistry and C hemistry - challengeon 09-08-2021 CO2 [Moles/Vol] 19.0 mmol/L 21.0-32.0 [facility] Work Phone: Magnesium [Mass/Vol] 2.3 mg/dL 1.6-2.6 [facility] Work Phone: Natriuretic peptide B (Bld) [Mass/Vol] 618.5 pg/mL 0-100 [facility] Work Phone: Urea nitrogen/Creatinine [Mass ratio] 17.1 mg/mg 10-20 [facility] Work Phone: Laboratory - Coagulationon 0 09-08-2021 aPTT Coag (Bld) [Time] 31.1 s 24.1-36.2 [facility] Work Phone: PT Coag (PPP) [Time] 13.6 s 11.7-14.9 [facility] Work Phone: Laboratory - Hematology and Cell countson 09-08-2021 Erythrocyte distribution width (RBC) [Entitic vol] 48.1 fL 35.1-43.9 [facility] Work Phone: Erythrocyte distribution width (RBC) [Ratio] 13.1 % 11.6-14.6 [facility] Work Phone: Immature granulocytes/100 WBC (Bld) 0.400 % 0.0-0.9 [facility] Work Phone: Comment on above: IG% - Immature Granu locytes (promyelocytes, myelocytes and metamyelocytes) > 1% indicates that a LEFT SHIFT is Present. MCH (RBC) [Entitic mass] 30.8 pg 27.0-32.0 [facility] Work Phone: Nucleated RBC/100 WBC (Bld) [Ratio] 0 % 0-5 [facility] Work Phone: Laboratory - Microbiology an d Antimicrobial susceptibilityon 09-08-2021 Bacteria identified Cx Nom (Bld) No growth in 5 days. [facility] Work Phone: MCHC Auto (RBC) [Mass/Vol]on 09-08-2021 MCHC (RBC) [Mass/Vol] 31.2 g/dL 32-36 [facility] Work Phone: Mucus LM Ql (Urine sed)on Mucus Ql (Urine sed) 0 SEEN /hpf [facility] Work Phone: Nitrite Test strip Ql (U)on 09-08-2021 Nitrite Ql (U) Negative Negative [facility] Work Phone: No Panel Informationon 09-08 Troponin I High Sensitivity 226 pg/mL 3.0-54.0 [facility] Work Phone: Comment on above: Critical Result(s) C alled at: 23:08:48 09/08/2021 by: MARIA T GÓMEZ TO ALONZO ERICKSON. Results read back by same. Please Note: New Test Units and Gender Specific Reference Ranges. For more information see Policy Stat Procedure [place] High Sensitivity Troponin (TNIH) and attachments. Bedside Blood Gas PEEP 5 [facility] Work Phone: Blood Gas Oxygen Percent 100 [facility] Work Phone: Blood Gas Respiration Rate 14 [facility] Work Phone: Blood Gas Sample Site L Radial [facility] Work Phone: Blood Gas Specimen Type ART [facility] Work Phone: Blood Gas Tidal Volume 450 [facility] Work Phone: Blood Gas Total CO2 19 mmol/L [facility] Work Phone: Blood Gas Vent Mode AC [facility] Work Phone: Oxygen Delivery Device Adult Vent [facility] Work Phone: Estimated Creatinine Clearance Calc 39.37 ml/min [facility] Work Phone: Estimated GFR (MDRD) Amer 48 mL/min >60 [facility] Work Phone: Comment on above: GFR Calc Estimated GFR (MDRD) Non-Af Amer 40 mL/min >60 [facility] Work Phone: [phone] Comment on above: Non- GFR Calc Urine Transitional Epithelial Cells 0-5 SEEN /hpf [facility] Work Phone: Oxygen (BldA) [Partial press ure]on 09-08-2021 Oxygen (Bld) [Partial pressure] 101 mmHG 75-100 [facility] Work Phone: Platelets bldon 09-08-2021 Platelets (Bld) [#/Vol] 280 10*3/uL 150-450 [facility] Work Phone: Protein Test strip Ql (U)on 09-08-2021 Protein Ql (U) 100 mg/dl Negative [facility] Work Phone: RBC morphologyon 04-05-2022 RBC morphology finding Nom (Bld) NORM C+C NORMAL NORM C&C [facility] Work Phone: Serum or plasma calcium oliver urement (mass/volume)on 09-08-2021 Calcium [Mass/Vol] 9.2 mg/dL 8.5-10.1 [facility] Work Phone: Serum or plasma creatinine m easurement (mass/volume)on 09-08-2021 Creatinine [Mass/Vol] 1.46 mg/dL 0.55-1.02 [facility] Work Phone: Comment on above: The validity of the calculated GFR & GFRAA in patients over 70 years has not been determined. Clinical correlation is essential. Serum or plasma urea nitroge n measurement (mass/volume)on 09-08-2021 Urea nitrogen [Mass/Vol] 25 mg/dL 7-18 [facility] Work Phone: Squamous epithelial cells de tection in urine sediment by light microscopyon 09-08-2021 Epithelial cells.squamous LM Ql (Urine sed) 0 SEEN /hpf [facility] Work Phone: Thin prep Papanicolaou smear with manual screeningon 09-08-2021 Thin prep Papanicolaou smear with manual screening 13 5-15 [facility] Work Phone: Urine blood detectionon 04-0 RBC Ql (U) 250 /ul Negative [facility] Work Phone: RBC Ql (U) 10-25 SEEN /hpf [facility] Work Phone: Urine clarityon 09-08-2021 Clarity (U) Sl. Cloudy Clear [facility] Work Phone: Urine color determinationon 09-08-2021 Color (U) Yellow Yellow [facility] Work Phone: Urine glucose detectionon Glucose Ql (U) 1000 mg/dl Normal [facility] Work Phone: Urine leukocyte esterase det ection by dipstickon 09-08-2021 Leukocyte esterase Test strip Ql (U) Negative Negative [facility] Work Phone: Urine pHon 09-08-2021 pH (U) 5.0 [pH] [facility] Work Phone: Urine sediment bacteria coun t by microscopy (number/high power field)on 09-08-2021 Bacteria LM.HPF (Urine sed) [#/Area] 1 /[HPF] None Seen [facility] Work Phone: Urine specific gravity measu rementon 09-08-2021 Specific gravity (U) [Rel density] 1.015 [facility] Work Phone: Urobilinogen Auto test strip Ql (U)on 09-08-2021 Urobilinogen Ql (U) Normal mg/dl Normal [facility] Work Phone: pH measurementon 09-08-2021 pH (Unsp spec) 7.22 [pH] 7.35-7.45 [facility] Work Phone: Basophil percentageon 2021 Chloride [Moles/Vol] 116 mmol/L 98-107 [facility] Work Phone: Glucose [Mass/Vol] 159 mg/dL 74-106 [facility] Work Phone: Comment on above: Fasting Glucose resu lt greater than or equal to 126 mg/dL suggests DIABETES MELLITUS per A.D.A. criteria. Potassium [Moles/Vol] 4.2 mmol/L 3.5-5.1 [facility] Work Phone: Sodium [Moles/Vol] 143 mmol/L 136-145 [facility] Work Phone: Glucose Glucometer (BldC) [M ass/Vol]on 07-19-2021 Glucose [Mass/Vol] 222 mg/dL 70-110 [facility] Work Phone: Comment on above: MANAGEMENT OF PATIEN T CARE PER NURSING PROTOCOL Laboratory - Chemistry and C hemistry - challengeon 07-19-2021 CO2 [Moles/Vol] 21.0 mmol/L 21.0-32.0 [facility] Work Phone: Urea nitrogen/Creatinine [Mass ratio] 21.6 mg/mg 10-20 [facility] Work Phone: No Panel Informationon 07-19 Estimated Creatinine Clearance Calc 65.31 ml/min [facility] Work Phone: Estimated GFR (MDRD) Amer 87 mL/min >60 [facility] Work Phone: Comment on above: GFR Calc Estimated GFR (MDRD) Non-Af Amer 72 mL/min >60 [facility] Work Phone: Comment on above: Non- GFR Calc Serum or plasma calcium oliver urement (mass/volume)on 07-19-2021 Calcium [Mass/Vol] 8.4 mg/dL 8.5-10.1 [facility] Work Phone: Serum or plasma creatinine m easurement (mass/volume)on 07-19-2021 Creatinine [Mass/Vol] 0.88 mg/dL 0.55-1.02 [facility] Work Phone: Comment on above: The validity of the calculated GFR & GFRAA in patients over 70 years has not been determined. Clinical correlation is essential. Serum or plasma urea nitroge n measurement (mass/volume)on 07-19-2021 Urea nitrogen [Mass/Vol] 19 mg/dL 7-18 [facility] Work Phone: Thin prep Papanicolaou smear with manual screeningon 07-19-2021 Thin prep Papanicolaou smear with manual screening 6 5-15 [facility] Work Phone: Absolute lymphocyte counton 07-18-2021 Lymphocytes Auto (Unsp spec) [#/Vol] 2.21 10*3/uL 0.83-4.51 [facility] Work Phone: Basophil percentageon 2021 Basophil percentage 3.9 mg/dL 2.5-4.[address] [facility] Work Phone: Basophils/100 WBC (Bld) 0.3 % 0-1 [facility] Work Phone: [phone] Eosinophils/100 WBC (Bld) 0.5 % 0-5 [facility] Work Phone: Neutrophils (Bld) [#/Vol] 1.5 10*3/uL 2.0-7.7 [facility] Work Phone: [phone] Neutrophils/100 WBC (Bld) 37.1 % 47-70 [facility] Work Phone: WBC (Bld) [#/Vol] 3.9 10*3/uL 4.4-11.0 [facility]: Blood erythrocytes count (nu mber/volume)on 07-18-2021 RBC (Bld) [#/Vol] 3.48 10*6/uL 4.2-5.[address] [facility] Work Phone: Blood hemoglobin measurement (mass/volume)on 07-18-2021 Hemoglobin (Bld) [Mass/Vol] 10.9 g/dL 12.0-15.0 [facility] Work Phone: Blood lymphocytes/100 leukoc yteson 07-18-2021 Lymphocytes/100 WBC (Bld) 56.2 % 19-41 [facility] Work Phone: Blood monocytes/100 leukocyt eson 07-18-2021 Monocytes/100 WBC (Bld) 5.6 % 0-10 [facility] Work Phone: Blood platelet mean volumeon 07-18-2021 Platelet mean volume (Bld) [Entitic vol] 10.8 fL 6.2-12.0 [facility] Work Phone: Determination of erythrocyte mean corpuscular volume (MCV)on 07-18-2021 MCV (RBC) [Entitic vol] 96.3 fL 81-99 [facility] Work Phone: Hematocrit Auto (Bld) [Volum e fraction]on 07-18-2021 Hematocrit (Bld) [Volume fraction] 33.5 % 37-47 [facility] Work Phone: Laboratory - Chemistry and C hemistry - challengeon 07-18-2021 Free T4 [Mass/Vol] 1.34 ng/dL 0.76-1.46 [facility] Work Phone: Laboratory - Hematology and Cell countson 07-18-2021 Erythrocyte distribution width (RBC) [Entitic vol] 49.4 fL 35.1-43.9 [facility] Work Phone: Erythrocyte distribution width (RBC) [Ratio] 14.1 % 11.6-14.6 [facility] Work Phone: Immature granulocytes/100 WBC (Bld) 0.300 % 0.0-0.9 [facility] Work Phone: Comment on above: IG% - Immature Granu locytes (promyelocytes, myelocytes and metamyelocytes) > 1% indicates that a LEFT SHIFT is Present. MCH (RBC) [Entitic mass] 31.3 pg 27.0-32.0 [facility] Work Phone: Nucleated RBC/100 WBC (Bld) [Ratio] 0 % 0-5 [facility] Work Phone: [phone] MCHC Auto (RBC) [Mass/Vol]on 07-18-2021 MCHC (RBC) [Mass/Vol] 32.5 g/dL 32-36 [facility] Work Phone: Platelets bldon 07-18-2021 Platelets (Bld) [#/Vol] 159 10*3/uL 150-450 [facility] Work Phone: Basophil percentageon 2021 Basophil percentage 5-10 SEEN /hpf [facility] Work Phone: Lactate [Moles/Vol] 1.2 mmol/L 0.4-2.0 [facility] Work Phone: Bilirubin [Mass/Vol] 0.50 mg/dL 0.20-[facility].00 [facility] Work [facility]: [phone] Comment on above: For patients on eltr ombopag therapy, use of Dimension [place] TBIL is not recommended. 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 Normal [facility] Ketones Test strip Ql (U)on 07-17-2021 Ketones Ql (U) Negative Negative [facility] Work Phone: Laboratory - Chemistry and C hemistry - challengeon 07-17-2021 ALP [Catalytic activity/Vol] 76 U/L 45-117 [facility] Work Phone: ALT [Catalytic activity/Vol] 25 U/L 13-56 [facility] Work Phone: Globulin (S) [Mass/Vol] 4.4 g/dL 2.2-4.2 [facility] Work Phone: Natriuretic peptide B (Bld) [Mass/Vol] 39.8 pg/mL 0-100 [facility] Work Phone: Mucus LM Ql (Urine sed)on Mucus Ql (Urine sed) 0 SEEN /hpf [facility] Work Phone: Nitrite Test strip Ql (U)on 07-17-2021 Nitrite Ql (U) Negative Negative [facility] Work Phone: No Panel Informationon 07-17 Troponin I High Sensitivity 13 pg/mL 3.0-54.0 [facility] Work Phone: Comment on above: Please Note: New [place] t Units and Gender Specific Reference Ranges. For more information see Policy Stat Procedure [place] High Sensitivity Troponin (TNIH) and attachments. D-Dimer Quantitative (PE/DVT) 0.70 FEU/ug/m 0.27-0.49 [facility] Work Phone: Comment on above: D-Dimer ELEVATED (>0 .49): Additional studies and clinicalassessments are indicated to conclude diagnosis of:Deep Vein Thrombosis (DVT) or Pulmonary Embolism (PE)RESULTS CALLED TO KATHY MARKS RN[] 07/17/21 1312 Josefa Kumar.REPORT READ BACK BY []. Protein Test strip Ql (U)on 07-17-2021 Protein Ql (U) Negative Negative [facility] Work Phone: Serum or plasma albumin oliver urement (mass/volume)on 07-17-2021 Albumin [Mass/Vol] 3.7 g/dL 3.2-5.0 [facility] Work Phone: Serum or plasma albumin/glob ulin mass ratioon 07-17-2021 Albumin/Globulin [Mass ratio] 0.8 {ratio} 0.9-2.4 [facility] Work Phone: Squamous epithelial cells de tection in urine sediment by light microscopyon 07-17-2021 Epithelial cells.squamous LM Ql (Urine sed) 0-5 SEEN /hpf [facility] Work Phone: Thin prep Papanicolaou smear with manual screeningon 07-17-2021 Thin prep Papanicolaou smear with manual screening 18 U/L 15-37 [facility] Work Phone: Urine blood detectionon 07-07 RBC Ql (U) Negative Negative [facility] Work Phone: RBC Ql (U) 0 SEEN /hpf [facility] Work Phone: Urine clarityon 07-17-2021 Clarity (U) Clear Clear [facility] Work Phone: Urine color determinationon 07-17-2021 Color (U) Yellow Yellow [facility] Work Phone: Urine glucose detectionon Glucose Ql (U) Normal mg/dl Normal [facility] Work Phone: Urine leukocyte esterase det ection by dipstickon 07-17-2021 Leukocyte esterase Test strip Ql (U) 100 /ul Negative [facility] Work Phone: Urine pHon 07-17-2021 pH (U) 5.0 [pH] [facility] Work Phone: Urine sediment bacteria coun t by microscopy (number/high power field)on 07-17-2021 Bacteria LM.HPF (Urine sed) [#/Area] RARE /hpf None Seen [facility] Work Phone: Urine specific gravity measu rementon 07-17-2021 Specific gravity (U) [Rel density] 1.010 [facility] Work Phone: Urobilinogen Auto test strip Ql (U)on 07-17-2021 Urobilinogen Ql (U) Normal mg/dl Normal [facility] Work Phone: CNPNon 07-10-2021 [facility] -- PITO HENDRIX ([id number]) 1970 F Date Time Provider Department 07/10/21 KIKI JEFFREY During your visit today, we recorded the following information about you: Kiki Jeffrey APRN.AUTOMATIC CENTRIFUGAL STATION OPERATOR 07/10/2021 9:10 AM Signed Patient identified by [...] Discussed expected course of illness Kiki Jeffrey APRN.AUTOMATIC CENTRIFUGAL STATION OPERATOR Allergies As of Date: 07/10/2021 Noted Allergy [...] Encounter Status:Closed by KIKI JEFFREY on 07/10/21 [facility] CNOVon 07-09-2021 CNOV Office Visit ([facility] ) -- PITO HENDRIX ([id number]) 1970 F Date Time Provider Department 07/09/21 9:00 AM MAX LIVE WS During your visit today, we recorded the following information about you: Temperature Pulse Respiration Blood pressure 98.2 degrees 73/minute 18/minute 112/78 Weight 93.4 kg Max Live APRN.AUTOMATIC CENTRIFUGAL STATION OPERATOR 07/09/2021 9:31 AM Signed CC: Patient presents [...] Patient agreeable to treatment plan. Max Live APRN.AUTOMATIC CENTRIFUGAL STATION OPERATOR Referring Provider: SELF [200] Allergies As of Date: 07/09/2021 Noted Allergy Reaction AUGMENTIN (AMOXICILLIN-POT CLAVUL*07/17/2017 11 - Vomiting Date Reviewed: 07/09/2021 Reviewed by: Estee Peace LPN - Fully Assessed Reason for Visit: Cough [28] Cmt: cough, chills, loss of voice and ST x 2 days Primary Visit Diagnosis:Suspected COVID-19 virus infection [Z20.822] Order(s):COVID WITH FLUA+B, ROUTINE [SQCOVFLU] Order #: [id number] FUTURE Prescriptions as of 07/09/2021 - aspirin, enteric coated (ASPIRIN, ENTERIC COATED) 81 mg EC tablet Take 81 mg by mouth once daily. - atorvastatin (LIPITOR) 40 mg tablet Take 40 mg by mouth daily at bedtime. - carvedilol (COREG) 6.25 mg tablet - clopidogrel (PLAVIX) 75 mg tablet - cyclobenzaprine (FLEXER (more content not included)... Normal [facility] COVID w FLU A+B Routon 07-09 Influenza A PCR Negative Normal [facility] Comment on above: Performed By: #### C OVFLU #### [facility] [address] [place], [place] [address] Influenza B PCR Negative Normal [facility] Comment on above: Performed By: #### C OVFLU #### [facility] [address] [place], [place] [address] SARS-CoV-2 (COVID-19) RNA ROSALIA+probe Ql (Unsp spec) UPPER RESPIRATORY TRACT SWAB Normal [facility] Comment on above: Performed By: #### C OVFLU #### [place] [id number] SARS-CoV-2 (COVID-19) RNA ROSALIA+probe Ql (Unsp spec) Positive for COVID19 (SARS CoV2) by RT-PCR or equivalent method. Critically abnormal Negative for COVID19 (SARS CoV2) by RT-PCR or equivalent method. [facility] Comment on above: Result Comment: This test was developed and its performance characteristics determined by [facility]'s [facility] [place]. This test has been authorized by FDA under an Emergency Use Authorization (EUA). This test has been validated in accordance with the FDA's Guidance Document Policy for Diagnostics Testing in Laboratories Certified to Perform High Complexity Testing under CLIA prior to Emergency use Authorization for Coronavirus Disease 2019 during the Public Health Emergency issued on August 04, 2019. Test performed by [facility], [facility] [place], [address] [place] [address]. Performed By: #### C OVFLU #### [place] [address] No Panel Informationon 07-07 Miscellaneous Test See comment [facility] Work Phone: Comment on above: TEST RESULT LIMITSTh yrotropin Receptor Ab, Serum <1.10 IU/L 0.00-1.75 ___ [facility]. ORIGINAL REPORT ON FILE IN LAB CONTAINS ADDITIONAL TEST SITE INFORMATION. Thyroglobulin Antibody < 1.0 IU/mL [facility] Work Phone: Comment on above: Thyroglobulin Antibo dy measured by Cherelle CoulterMethodology Thyroglobulin Level 26.3 ng/mL [facility] Work Phone: Comment on above: According to the [facility] Academy of Clinical Biochemistry,the reference interval for Thyroglobulin (TG) should berelated to euthyroid patients and not for patients whounderwent thyroidectomy. TG reference intervals for thesepatients depend on the residual mass of the thyroid tissueleft after surgery. Establishing a post-operative baselineis recommended. The assay limit of quantitation is 0.1ng/mLThyroglobulin measured by Cherelle Jim [employer] Thyroid Stimulating Hormone (TSH) 0.04 uIU/mL 0.358-3.74 [facility] Work Phone: Serum or plasma thyroperoxid ase antibody assay (units/volume)on 07-07-2021 TPO Ab Qn [IU]/mL [facility] Work Phone: Comment on above: Performed at: [address] Director: Vargas Kim PhD, Phone: [phone] Absolute lymphocyte counton 06-07-2021 Lymphocytes Auto (Unsp spec) [#/Vol] 1.60 10*3/uL 0.83-4.51 [facility] Work Phone: Basophil percentageon 2021 Basophils/100 WBC (Bld) 0.4 % 0-1 [facility] Work Phone: Chloride [Moles/Vol] 105 mmol/L 98-107 [facility] [facility] Work Phone: Eosinophils/100 WBC (Bld) 1.3 % 0-5 [facility] Work Phone: Glucose [Mass/Vol] 441 mg/dL 74-106 [facility] Work Phone: Comment on above: Glucose result great er than or equal to 200 mg/dLsuggests DIABETES MELLITUS per A.D.A. criteria.Please note revised GLUCOSE reference range effective 2017. Neutrophils (Bld) [#/Vol] 3.3 10*3/uL 2.0-7.7 [facility] Work Phone: Neutrophils/100 WBC (Bld) 61.9 % 47-70 [facility] Work Phone: Potassium [Moles/Vol] 3.3 mmol/L 3.5-5.1 [facility] Work Phone: Comment on above: Slight Hemolysis, Re sult may be falsely increased. Sodium [Moles/Vol] 137 mmol/L 136-145 [facility] Work Phone: WBC (Bld) [#/Vol] 5.3 10*3/uL 4.4-11.0 [facility] Work Phone: Blood erythrocytes count (nu mber/volume)on 06-07-2021 RBC (Bld) [#/Vol] 4.29 10*6/uL 4.2-5.[address] [facility] Work Phone: Blood hemoglobin measurement (mass/volume)on 06-07-2021 Hemoglobin (Bld) [Mass/Vol] 13.3 g/dL 12.0-15.0 [facility] Work Phone: Blood lymphocytes/100 leukoc yteson 06-07-2021 Lymphocytes/100 WBC (Bld) 30.0 % 19-41 [facility] Work Phone: Blood monocytes/100 leukocyt eson 06-07-2021 Monocytes/100 WBC (Bld) 6.2 % 0-10 [facility] Work Phone: Blood platelet mean volumeon 06-07-2021 Platelet mean volume (Bld) [Entitic vol] 10.8 fL 6.2-12.0 [facility] Work Phone: Determination of erythrocyte mean corpuscular volume (MCV)on 06-07-2021 MCV (RBC) [Entitic vol] 89.5 fL 81-99 [facility] Work Phone: Hematocrit Auto (Bld) [Volum e fraction]on 06-07-2021 Hematocrit (Bld) [Volume fraction] 38.4 % 37-47 [facility] Work Phone: INR in Blood by Coagulation assayon 06-07-2021 INR Coag (Bld) [Relative time] 1.0 {INR} [facility] Work Phone: Laboratory - Chemistry and C hemistry - challengeon 06-07-2021 CO2 [Moles/Vol] 23.0 mmol/L 21.0-32.0 [facility] Work Phone: Urea nitrogen/Creatinine [Mass ratio] 17.5 mg/mg 10-20 [facility] Work Phone: Laboratory - Coagulationon 0 06-07-2021 PT Coag (PPP) [Time] 12.1 s 11.7-14.9 [facility] Work Phone: Laboratory - Hematology and Cell countson 06-07-2021 Erythrocyte distribution width (RBC) [Entitic vol] 44.4 fL 35.1-43.9 [facility] Work Phone: Erythrocyte distribution width (RBC) [Ratio] 13.8 % 11.6-14.6 [facility] Work Phone: Immature granulocytes/100 WBC (Bld) 0.200 % 0.0-0.9 [facility] Work Phone: Comment on above: IG% - Immature Granu locytes (promyelocytes, myelocytes and metamyelocytes) > 1% indicates that a LEFT SHIFT is Present. MCH (RBC) [Entitic mass] 31.0 pg 27.0-32.0 [facility] Work Phone: Nucleated RBC/100 WBC (Bld) [Ratio] 0 % 0-5 [facility] Work Phone: MCHC Auto (RBC) [Mass/Vol]on 06-07-2021 MCHC (RBC) [Mass/Vol] 34.6 g/dL 32-36 [facility] Work Phone: No Panel Informationon 06-07 Troponin I High Sensitivity 11 pg/mL 3.0-54.0 [facility] Work Phone: Comment on above: Please Note: [place] t Units and Gender Specific Reference Ranges. For more information see Policy Stat Procedure [place] High Sensitivity Troponin (TNIH) and attachments. Estimated Creatinine Clearance Calc 50.41 ml/min [facility] Work Phone: Estimated GFR (MDRD) Amer 65 mL/min >60 [facility] Work Phone: Comment on above: GFR Calc Estimated GFR (MDRD) Non-Af Amer 53 mL/min >60 [facility] Work Phone: Comment on above: Non- GFR Calc Platelets bldon 06-07-2021 Platelets (Bld) [#/Vol] 227 10*3/uL 150-450 [facility] Work Phone: Serum or plasma calcium oliver urement (mass/volume)on 06-07-2021 Calcium [Mass/Vol] 9.5 mg/dL 8.5-10.1 [facility] Work Phone: Serum or plasma creatinine m easurement (mass/volume)on 06-07-2021 Creatinine [Mass/Vol] 1.14 mg/dL 0.55-1.02 [facility] Work Phone: Comment on above: The validity of the calculated GFR & GFRAA in patients over 70 years has not been determined. Clinical correlation is essential. Serum or plasma urea nitroge n measurement (mass/volume)on 06-07-2021 Urea nitrogen [Mass/Vol] 20 mg/dL 7-18 [facility] Work Phone: Thin prep Papanicolaou smear with manual screeningon 06-07-2021 Thin prep Papanicolaou smear with manual screening 9 5-15 [facility] Work Phone: Absolute lymphocyte counton 06-04-2021 Lymphocytes Auto (Unsp spec) [#/Vol] 2.23 10*3/uL 0.83-4.51 [facility] Work Phone: Basophil percentageon 2020 Chloride [Moles/Vol] 105 mmol/L 98-107 [facility]: Eosinophils/100 WBC (Bld) 0.6 % 0-5 [facility] Work Phone: Glucose [Mass/Vol] 378 mg/dL 74-106 [facility] Work Phone: Comment on above: Glucose result great er than or equal to 200 mg/dLsuggests DIABETES MELLITUS per A.D.A. criteria.Please note revised GLUCOSE reference range effective 2017. Neutrophils (Bld) [#/Vol] 3.8 10*3/uL 2.0-7.7 [facility] Work Phone: Potassium [Moles/Vol] 3.2 mmol/L 3.5-5.1 [facility] Work Phone: [phone] Sodium [Moles/Vol] 137 mmol/L 136-145 [facility] Work Phone: WBC (Bld) [#/Vol] 6.4 10*3/uL 4.4-11.0 [facility] Work Phone: Blood erythrocytes count (nu mber/volume)on 06-04-2021 RBC (Bld) [#/Vol] 4.18 10*6/uL 4.2-5.4 [facility] Work Phone: Blood hemoglobin measurement (mass/volume)on 06-04-2021 Hemoglobin (Bld) [Mass/Vol] 13.1 g/dL 12.0-15.0 [facility] Work Phone: Blood lymphocytes/100 leukoc yteson 06-04-2021 Lymphocytes/100 WBC (Bld) 34.6 % 19-41 [facility] Work Phone: Blood monocytes/100 leukocyt eson 06-04-2021 Monocytes/100 WBC (Bld) 5.9 % 0-10 [facility] Work Phone: Blood platelet mean volumeon 06-04-2021 Platelet mean volume (Bld) [Entitic vol] 10.8 fL 6.2-12.0 [facility] Work Phone: Determination of erythrocyte mean corpuscular volume (MCV)on 06-04-2021 MCV (RBC) [Entitic vol] 90.7 fL 81-99 [facility] Work Phone: Erythrocyte sedimentation ra samia 06-04-2021 ESR (Bld) [Velocity] 16 mm/h 0-30 [facility] Work Phone: Hematocrit Auto (Bld) [Volum e fraction]on 06-04-2021 Hematocrit (Bld) [Volume fraction] 37.9 % 37-47 [facility] Work Phone: Laboratory - Chemistry and C hemistry - challengeon 06-04-2021 CO2 [Moles/Vol] 24.0 mmol/L 21.0-32.0 [facility] Work Phone: Magnesium [Mass/Vol] 2.1 mg/dL 1.6-2.6 [facility] Work Phone: Urea nitrogen/Creatinine [Mass ratio] 16.2 mg/mg 10-20 [facility] Work Phone: Laboratory - Hematology and Cell countson 06-04-2021 Basophils/100 WBC (Unsp spec) 0.3 % 0-1 [facility] Work Phone: Erythrocyte distribution width (RBC) [Entitic vol] 44.9 fL 35.1-43.9 [facility] Work Phone: Erythrocyte distribution width (RBC) [Ratio] 13.7 % 11.6-14.6 [facility] Work Phone: Immature granulocytes/100 WBC (Bld) 0.300 % 0.0-0.9 [facility] Work Phone: Comment on above: IG% - Immature Granu locytes (promyelocytes, myelocytes and metamyelocytes) > 1% indicates that a LEFT SHIFT is Present. MCH (RBC) [Entitic mass] 31.3 pg 27.0-32.0 [facility] Work Phone: Neutrophils/100 WBC (Bld) 58.3 % 47-70 [facility] Work Phone: Nucleated RBC/100 WBC (Bld) [Ratio] 0 % 0-5 [facility] Work Phone: MCHC Auto (RBC) [Mass/Vol]on 06-04-2021 MCHC (RBC) [Mass/Vol] 34.6 g/dL 32-36 [facility] Work Phone: No Panel Informationon 06-04 D-Dimer Quantitative (PE/DVT) 0.58 FEU/ug/m 0.27-0.49 [facility] Work Phone: Comment on above: D-Dimer ELEVATED (>0 .49): Additional studies and clinicalassessments are indicated to conclude diagnosis of:Deep Vein Thrombosis (DVT) or Pulmonary Embolism (PE) Estimated Creatinine Clearance Calc 51.78 ml/min [facility] Work Phone: Estimated GFR (MDRD) Amer 67 mL/min >60 [facility] Work Phone: Comment on above: GFR Calc Estimated GFR (MDRD) Non-Af Amer 55 mL/min >60 [facility] Work Phone: Comment on above: Non- GFR Calc Troponin I High Sensitivity 13 pg/mL 3.0-54.0 [facility] Work Phone: Comment on above: Please Note: [place] t Units and Gender Specific Reference Ranges. For more information see Policy Stat Procedure [place] High Sensitivity Troponin (TNIH) and attachments. SARS-CoV-2 Antigen (Rapid) [facility] Work Phone: Platelets bldon 06-04-2021 Platelets (Bld) [#/Vol] 215 10*3/uL 150-450 [facility] Work Phone: Serum or plasma C reactive p rotein measurement (mass/volume)on 06-04-2021 CRP [Mass/Vol] 6.42 mg/L 0.0-3.0 [facility] Work Phone: Comment on above: C-Reactive Protein ( CRP) provides useful information for thediagnosis, therapy and monitoring of inflammatory processesand associated diseases. For the evaluation of Relative Riskfor Cardiovascular Disease, a High Sensitivity CRP (HSCRP)should be ordered. Serum or plasma calcium oliver urement (mass/volume)on 06-04-2021 Calcium [Mass/Vol] 9.4 mg/dL 8.5-10.1 [facility] Work Phone: Serum or plasma creatinine m easurement (mass/volume)on 06-04-2021 Creatinine [Mass/Vol] 1.11 mg/dL 0.55-1.02 [facility] Work Phone: Comment on above: The validity of the calculated GFR & GFRAA in patients over 70 years has not been determined. Clinical correlation is essential. Serum or plasma urea nitroge n measurement (mass/volume)on 06-04-2021 Urea nitrogen [Mass/Vol] 18 mg/dL 7-18 [facility] Work Phone: Thin prep Papanicolaou smear with manual screeningon 06-04-2021 Thin prep Papanicolaou smear with manual screening 8 5-15 [facility] Work Phone: Absolute lymphocyte counton 05-25-2021 Lymphocytes Auto (Unsp spec) [#/Vol] 1.81 10*3/uL 0.83-4.51 [facility] Work Phone: Basophil percentageon 2020 Chloride [Moles/Vol] 108 mmol/L 98-107 [facility] Work Phone: Eosinophils/100 WBC (Bld) 0.8 % 0-5 [facility] Work Phone: Glucose [Mass/Vol] 144 mg/dL 74-106 [facility] Work Phone: Comment on above: Fasting Glucose resu lt greater than or equal to 126 mg/dL suggests DIABETES MELLITUS per A.D.A. criteria.Please note revised GLUCOSE reference range effective 2017. Neutrophils (Bld) [#/Vol] 2.9 10*3/uL 2.0-7.7 [facility] Work Phone: Potassium [Moles/Vol] 3.5 mmol/L 3.5-5.1 [facility] Work Phone: Sodium [Moles/Vol] 140 mmol/L 136-145 [facility] Work Phone: WBC (Bld) [#/Vol] 5.2 10*3/uL 4.4-11.0 [facility] Work Phone: Blood erythrocytes count (nu mber/volume)on 05-25-2021 RBC (Bld) [#/Vol] 3.73 10*6/uL 4.2-5.[address] [facility] Work Phone: Blood hemoglobin measurement (mass/volume)on 05-25-2021 Hemoglobin (Bld) [Mass/Vol] 11.6 g/dL 12.0-15.0 [facility] Work Phone: Blood lymphocytes/100 leukoc yteson 05-25-2021 Lymphocytes/100 WBC (Bld) 34.7 % 19-41 [facility] Work Phone: Blood monocytes/100 leukocyt eson 05-25-2021 Monocytes/100 WBC (Bld) 7.7 % 0-10 [facility] Work Phone: Blood platelet mean volumeon 05-25-2021 Platelet mean volume (Bld) [Entitic vol] 10.9 fL 6.2-12.0 [facility] Work Phone: Determination of erythrocyte mean corpuscular volume (MCV)on 05-25-2021 MCV (RBC) [Entitic vol] 92.2 fL 81-99 [facility] Work Phone: Glucose Glucometer (BldC) [M ass/Vol]on 05-25-2021 Glucose [Mass/Vol] 107 mg/dL 70-110 [facility] Work Phone: Comment on above: MANAGEMENT OF PATIEN T CARE PER NURSING PROTOCOL Hematocrit Auto (Bld) [Volum e fraction]on 05-25-2021 Hematocrit (Bld) [Volume fraction] 34.4 % 37-47 [facility] Work Phone: Laboratory - Chemistry and C hemistry - challengeon 05-25-2021 CO2 [Moles/Vol] 24.0 mmol/L 21.0-32.0 [facility] Work Phone: Natriuretic peptide B (Bld) [Mass/Vol] 48.7 pg/mL 0-100 [facility] Work Phone: Urea nitrogen/Creatinine [Mass ratio] 26.1 mg/mg 10-20 [facility] Work Phone: Laboratory - Coagulationon 1 07-26-2020 aPTT Coag (Bld) [Time] 33.3 s 24.1-36.2 [facility] Work Phone: Laboratory - Hematology and Cell countson 05-25-2021 Basophils/100 WBC (Unsp spec) 0.4 % 0-1 [facility] Work Phone: Erythrocyte distribution width (RBC) [Entitic vol] 47.4 fL 35.1-43.9 [facility] Work Phone: Erythrocyte distribution width (RBC) [Ratio] 14.0 % 11.6-14.6 [facility] Work Phone: Immature granulocytes/100 WBC (Bld) 0.200 % 0.0-0.9 [facility] Work Phone: Comment on above: IG% - Immature Granu locytes (promyelocytes, myelocytes and metamyelocytes) > 1% indicates that a LEFT SHIFT is Present. MCH (RBC) [Entitic mass] 31.1 pg 27.0-32.0 [facility] Work Phone: Neutrophils/100 WBC (Bld) 56.2 % 47-70 [facility] Work Phone: Nucleated RBC/100 WBC (Bld) [Ratio] 0 % 0-5 [facility] Work Phone: MCHC Auto (RBC) [Mass/Vol]on 05-25-2021 MCHC (RBC) [Mass/Vol] 33.7 g/dL 32-36 [facility] Work Phone: No Panel Informationon 05-25 Estimated Creatinine Clearance Calc 49.98 ml/min [facility] Work Phone: Estimated GFR (MDRD) Amer 64 mL/min >60 [facility] Work Phone: Comment on above: GFR Calc Estimated GFR (MDRD) Non-Af Amer 53 mL/min >60 [facility] Work Phone: Comment on above: Non- GFR Calc Platelets bldon 05-25-2021 Platelets (Bld) [#/Vol] 185 10*3/uL 150-450 [facility] Work Phone: Serum or plasma calcium oliver urement (mass/volume)on 05-25-2021 Calcium [Mass/Vol] 9.2 mg/dL 8.5-10.1 [facility] Work Phone: Serum or plasma creatinine m easurement (mass/volume)on 05-25-2021 Creatinine [Mass/Vol] 1.15 mg/dL 0.55-1.02 [facility] Work Phone: Comment on above: The validity of the calculated GFR & GFRAA in patients over 70 years has not been determined. Clinical correlation is essential. Serum or plasma urea nitroge n measurement (mass/volume)on 05-25-2021 Urea nitrogen [Mass/Vol] 30 mg/dL 7-18 [facility] Work Phone: Thin prep Papanicolaou smear with manual screeningon 05-25-2021 Thin prep Papanicolaou smear with manual screening 8 5-15 [facility] Work Phone: No Panel Informationon 05-24 Troponin I High Sensitivity 104 pg/mL 3.0-54.0 [facility] Work Phone: Comment on above: Please Note: [place] t Units and Gender Specific Reference Ranges. For more information see Policy Stat Procedure [place] High Sensitivity Troponin (TNIH) and attachments. INR in Blood by Coagulation assayon 05-22-2021 INR Coag (Bld) [Relative time] 1.0 {INR} [facility] Work Phone: Laboratory - Coagulationon 1 07-23-2020 PT Coag (PPP) [Time] 12.5 s 11.7-14.9 [facility] Work Phone: Laboratory - Microbiology an d Antimicrobial susceptibilityon 05-22-2021 SARS-CoV-2 (COVID-19) RNA ROSALIA+probe Ql (Unsp spec) Not detected Not Detect [facility] Work Phone: Comment on above: Normal Reference Ran ge: Not DetectedMethod:(RT-PCR) real-time reverse transcriptase PCRLuminex Paybook Instrument*The Food and Drug Administration (FDA) has issued an Emergency Use Authorization (EAU) for the Paybook SARS-CoV-2 Assay for the rapid detection of [...] 05-22 D-Dimer Quantitative (PE/DVT) 1.04 FEU/ug/m 0.27-0.49 [facility] Work Phone: Comment on above: D-Dimer ELEVATED (>0 .49): Additional studies and clinicalassessments are indicated to conclude diagnosis of:Deep Vein Thrombosis (DVT) or Pulmonary Embolism (PE)CRITICAL VALUE VERIFIED. CALLED TO SIS KRISHNAN (ER)[id number] Joshua Gonzáles.RESULTS READ BACK BY SAME. SARS-CoV-2 Antigen (Rapid) [facility] Work Phone: Basophil percentageon 2020 Bilirubin [Mass/Vol] 0.70 mg/dL 0.20-1.00 [facility] Work Phone: Comment on above: For patients on eltr ombopag therapy, use of Dimension [place] TBIL is not recommended. Chloride [Moles/Vol] 110 mmol/L 98-107 [facility] Work Phone: Cholesterol [Mass/Vol] 105 mg/dL <200 [facility] Work Phone: Comment on above: <200 mg/dL Desirable 200-240 mg/dL Borderline >240 mg/dL High Risk Glucose [Mass/Vol] 230 mg/dL 74-106 [facility] Work Phone: Comment on above: Glucose result great er than or equal to 200 mg/dLsuggests DIABETES MELLITUS per A.D.A. criteria.Please note revised GLUCOSE reference range effective 2017. Potassium [Moles/Vol] 3.9 mmol/L 3.5-5.1 [facility] Work Phone: Protein [Mass/Vol] 6.3 g/dL 6.4-8.2 [facility] Work Phone: Sodium [Moles/Vol] 140 mmol/L 136-145 [facility] Work Phone: Triglyceride [Mass/Vol] 140 mg/dL [facility] Work Phone: Comment on above: The drugs N-Acetylcy steine and Metamizole may falsely depress this assay.Serum Triglycerides Reference Interval Normal <150 mg/dL Borderline high 150 - 199 mg/dL High 200 - 499 mg/dL Very High > or = 500 mg/dL WBC (Bld) [#/Vol] 5.2 10*3/uL 4.4-11.0 [facility] Work Phone: Blood erythrocytes count (nu mber/volume)on 05-20-2021 RBC (Bld) [#/Vol] 3.80 10*6/uL 4.2-5.[address] [facility] Work Phone: Blood hemoglobin measurement (mass/volume)on 05-20-2021 Hemoglobin (Bld) [Mass/Vol] 11.6 g/dL 12.0-15.0 [facility] Work Phone: Blood platelet mean volumeon 05-20-2021 Platelet mean volume (Bld) [Entitic vol] 10.5 fL 6.2-12.0 [facility] Work Phone: Determination of erythrocyte mean corpuscular volume (MCV)on 05-20-2021 MCV (RBC) [Entitic vol] 93.9 fL 81-99 [facility] Work Phone: Hematocrit Auto (Bld) [Volum e fraction]on 05-20-2021 Hematocrit (Bld) [Volume fraction] 35.7 % 37-47 [facility] Work Phone: Laboratory - Chemistry and C hemistry - challengeon 05-20-2021 ALP [Catalytic activity/Vol] 57 U/L 45-117 [facility] Work Phone: ALT [Catalytic activity/Vol] 21 U/L 13-56 [facility] Work Phone: CO2 [Moles/Vol] 23.0 mmol/L 21.0-32.0 [facility] Work Phone: Globulin (S) [Mass/Vol] 3.6 g/dL 2.2-4.2 [facility] Work Phone: Urea nitrogen/Creatinine [Mass ratio] 18.5 mg/mg 10-20 [facility] Work Phone: Laboratory - Hematology and Cell countson 05-20-2021 Erythrocyte distribution width (RBC) [Entitic vol] 46.7 fL 35.1-43.9 [facility] Work Phone: Erythrocyte distribution width (RBC) [Ratio] 13.6 % 11.6-14.6 [facility] Work Phone: MCH (RBC) [Entitic mass] 30.5 pg 27.0-32.0 [facility] Work Phone: MCHC Auto (RBC) [Mass/Vol]on 05-20-2021 MCHC (RBC) [Mass/Vol] 32.5 g/dL 32-36 [facility] Work Phone: No Panel Informationon 05-20 Estimated Creatinine Clearance Calc 70.95 ml/min [facility] Work Phone: Estimated GFR (MDRD) Amer 96 mL/min >60 [facility] Work Phone: Comment on above: GFR Calc Estimated GFR (MDRD) Non-Af Amer 79 mL/min >60 [facility] Work Phone: Comment on above: Non- GFR Calc Platelets bldon 05-20-2021 Platelets (Bld) [#/Vol] 171 10*3/uL 150-450 [facility] Work Phone: Serum or plasma albumin oliver urement (mass/volume)on 05-20-2021 Albumin [Mass/Vol] 2.7 g/dL 3.2-5.0 [facility] Work Phone: Serum or plasma albumin/glob ulin mass ratioon 05-20-2021 Albumin/Globulin [Mass ratio] 0.8 {ratio} 0.9-2.4 [facility] Work Phone: Serum or plasma calcium oliver urement (mass/volume)on 05-20-2021 Calcium [Mass/Vol] 8.8 mg/dL 8.5-10.1 [facility] Work Phone: Serum or plasma cholesterol in HDL measurement (mass/volume)on 05-20-2021 Cholesterol in HDL [Mass/Vol] 41 mg/dL [facility] Work Phone: Comment on above: The drugs N-Acetylcy steine and Metamizole may falsely depress this assay. Reference Range HDL <40 mg/dL Low HDL Cholesterol HDL >or= 60 mg/dL High HDL Cholesterol Serum or plasma cholesterol in VLDL measurement (mass/volume)on 05-20-2021 Cholesterol in VLDL [Mass/Vol] 28 mg/dL 5-40 [facility] Work Phone: Serum or plasma creatinine m easurement (mass/volume)on 05-20-2021 Creatinine [Mass/Vol] 0.81 mg/dL 0.55-1.02 [facility] Work Phone: Comment on above: The validity of the calculated GFR & GFRAA in patients over 70 years has not been determined. Clinical correlation is essential. Serum or plasma low density lipoprotein (LDL) cholesterol measurement (mass/volume)on 05-20-2021 Cholesterol in LDL [Mass/Vol] 36 mg/dL 0-130 [facility] Work Phone: Serum or plasma urea nitroge n measurement (mass/volume)on 05-20-2021 Urea nitrogen [Mass/Vol] 15 mg/dL 7-18 [facility] Work Phone: Thin prep Papanicolaou smear with manual screeningon 05-20-2021 Thin prep Papanicolaou smear with manual screening 17 U/L 15-37 [facility] Work Phone: Thin prep Papanicolaou smear with manual screening 7 5-15 [facility] Work Phone: Whole blood hemoglobin A1c/t otal hemoglobin ratio (mass fraction)on 05-20-2021 HbA1c (Bld) [Mass fraction] 9.6 % 3.8-5.6 [facility] Work Phone: Comment on above: Normal < 5.7 % Predi abetic 5.7 - 6.4 % Diabetic >or= 6.5 % Please note range changes. Absolute lymphocyte counton 05-19-2021 Lymphocytes Auto (Unsp spec) [#/Vol] 2.94 10*3/uL 0.83-4.51 [facility] Work Phone: Basophil percentageon 2020 Eosinophils/100 WBC (Bld) 1.0 % 0-5 [facility] Work Phone: Neutrophils (Bld) [#/Vol] 1.8 10*3/uL 2.0-7.7 [facility] Work Phone: Blood lymphocytes/100 leukoc yteson 05-19-2021 Lymphocytes/100 WBC (Bld) 56.9 % 19-41 [facility] Work Phone: Blood monocytes/100 leukocyt eson 05-19-2021 Monocytes/100 WBC (Bld) 6.4 % 0-10 [facility] Work Phone: Laboratory - Chemistry and C hemistry - challengeon 05-19-2021 Magnesium [Mass/Vol] 2.1 mg/dL 1.6-2.6 [facility] Work Phone: Laboratory - Coagulationon 1 07-20-2020 aPTT Coag (Bld) [Time] 133.7 s 24.1-36.2 [facility] Work Phone: Laboratory - Hematology and Cell countson 05-19-2021 Basophils/100 WBC (Unsp spec) 0.4 % 0-1 [facility] Work Phone: Immature granulocytes/100 WBC (Bld) 0.200 % 0.0-0.9 [facility] Work Phone: Comment on above: IG% - Immature Granu locytes (promyelocytes, myelocytes and metamyelocytes) > 1% indicates that a LEFT SHIFT is Present. Neutrophils/100 WBC (Bld) 35.1 % 47-70 [facility] Work Phone: Nucleated RBC/100 WBC (Bld) [Ratio] 0 % 0-5 [facility] Work Phone: No Panel Informationon 05-19 Troponin I High Sensitivity 669 pg/mL 3.0-54.0 [facility] Work Phone: Comment on above: Critical Result(s) C alled at: 06:49:53 05/19/2021 by: Félix Hardy. Ivan Kerr RN (ER). Results read back by same. Please Note: New Test Units and Gender Specific Reference Ranges. For more information see Policy Stat Procedure [place] High Sensitivity Troponin (TNIH) and attachments. INR in Blood by Coagulation assayon 05-18-2021 INR Coag (Bld) [Relative time] 1.0 {INR} [facility] Work Phone: Laboratory - Chemistry and C hemistry - challengeon 05-18-2021 Natriuretic peptide B (Bld) [Mass/Vol] 221.5 pg/mL 0-100 [facility] Work Phone: Laboratory - Coagulationon 1 07-19-2020 PT Coag (PPP) [Time] 12.9 s 11.7-14.9 [facility] Work Phone: Culture, urine Bacteria identified Cx Nom (U) Presumptive E. coli [facility] Work Phone: No Panel Information SARS-CoV-2 & FLU Antigen (Rapid) [facility] Work Phone: Vital Signs Date Time Vital Sign Value Performing Clinician Facility 01-29-2025 13:32-0400 Body height 162.56 cm Mehnaz Laughlin MD Work Phone: [facility] 01-29-2025 13:32-0400 Body mass index (BMI) [Ratio] 36.3 kg/m2 Mehnaz Laughlin MD Work Phone: [facility] 01-29-2025 13:32-0400 Body weight 96.16 kg Mehnaz Laughlin MD Work Phone: [facility] 01-29-2025 13:32-0400 Diastolic blood pressure 86 mm[Hg] Mehnaz Laughlin MD Work Phone: [facility] 01-29-2025 13:32-0400 Heart rate 67 /min Mehnaz Laughlin MD Work Phone: [facility] 01-29-2025 13:32-0400 Respiratory rate 16 /min Mehnaz Laughlin MD Work Phone: [facility] 01-29-2025 13:32-0400 Systolic blood pressure 154 mm[Hg] Mehnaz Laughlin MD Work Phone: [facility] 01-11-2025 18:49-0400 Body temperature 98 [degF] Mehnaz Laughlin MD Work Phone: [facility] 01-11-2025 18:49-0400 Diastolic blood pressure 69 mm[Hg] Mehnaz Laughlin MD Work Phone: 1(126)471-527570 [place] [address] 01-11-2025 18:49-0400 Heart rate 71 /min Mehnaz Laughlin MD Work Phone: 9(111)414-906270 [place] [address] 01-11-2025 18:49-0400 Respiratory rate 18 /min Mehnaz Laughlin MD Work Phone: 8(856)611-136162 [address] 01-11-2025 18:49-0400 SaO2% (BldA) [Mass fraction] 100 % Mehnaz Laughlin MD Work Phone: 3(371)711-010962 [address] 01-11-2025 18:49-0400 Systolic blood pressure 151 mm[Hg] Mehnaz Laughlin MD Work Phone: 5(635)210-771362 [address] 01-11-2025 14:07-0400 Body height 162.56 cm Mehnaz Laughlin MD Work Phone: 0(471)818-255862 [address] 01-11-2025 14:07-0400 Body mass index (BMI) [Ratio] 36.8 kg/m2 Mehnaz Laughlin MD Work Phone: 0(023)212-507670 [place] [address] 01-11-2025 14:07-0400 Body weight 97.29 kg Mehnaz Laughlin MD Work Phone: 0(418)308-244362 [address] 01-11-2025 08:10-0400 Body mass index (BMI) [Ratio] 36.2 kg/m2 Mehnaz Laughlin MD Work Phone: 1(918)787-934870 [place] [address] 01-11-2025 08:10-0400 Body temperature 97 [degF] Mehnaz Laughlin MD Work Phone: 4(281)186-604370 [place] [address] 01-11-2025 08:10-0400 Body weight 95.7 kg Mehnaz Laughlin MD Work Phone: 3(939)704-735970 [place] [address] 01-11-2025 08:10-0400 Diastolic blood pressure 51 mm[Hg] Mehnaz Laughlin MD Work Phone: 4(534)431-741162 [address] 01-11-2025 08:10-0400 Heart rate 67 /min Mehnaz Laughlin MD Work Phone: [facility] 01-11-2025 08:10-0400 Respiratory rate 20 /min Mehnaz Laughlin MD Work Phone: [facility] 01-11-2025 08:10-0400 SaO2% (BldA) [Mass fraction] 97 % Mehnaz Laughlin MD Work Phone: 7(866)042-582570 [place] [address] 01-11-2025 08:10-0400 Systolic blood pressure 98 mm[Hg] Mehnaz Laughlin MD Work Phone: 7(139)373-703070 [place] [address] 12-27-2024 09:08-0400 Body height 162.56 cm Mehnaz Laughlin MD Work Phone: 5(496)950-034362 [address] 12-27-2024 09:08-0400 Body weight 99.79 kg Mehnaz Laughlin MD Work Phone: 3(384)818-416970 [place] [address] 12-27-2024 09:08-0400 Heart rate 75 /min Mehnaz Laughlin MD Work Phone: 9(678)119-965470 [place] [address] 12-27-2024 09:08-0400 SaO2% (BldA) [Mass fraction] 98 % Mehnaz Laughlin MD Work Phone: 1(624)140-313570 [place] [address] 2024 08:11-0400 Body mass index (BMI) [Ratio] 38 kg/m2 Mehnaz Laughlin MD Work Phone: [facility] 2024 08:11-0400 Body temperature 97.1 [degF] Mehnaz Laughlin MD Work Phone: 9(761)768-908770 [place] [address] 2024 08:11-0400 Body weight 100.69 kg Mehnaz Laughlin MD Work Phone: 2(108)679-071770 [place] [address] 2024 08:11-0400 Diastolic blood pressure 94 mm[Hg] Mehnaz Laughlin MD Work Phone: 1(939)381-321570 [place] [address] 2024 08:11-0400 Heart rate 74 /min Mehnaz Laughlin MD Work Phone: [facility] 2024 08:11-0400 Respiratory rate 20 /min Mehnaz Laughlin MD Work Phone: [facility] 2024 08:11-0400 SaO2% (BldA) [Mass fraction] 99 % Mehnaz Laughlin MD Work Phone: [facility] 2024 08:11-0400 Systolic blood pressure 154 mm[Hg] Mehnaz Laughlin MD Work Phone: [facility] 12-06-2024 21:08-0400 Body temperature 98.4 [degF] Mehnaz Laughlin MD Work Phone: [facility] 12-06-2024 21:08-0400 Diastolic blood pressure 72 mm[Hg] Mehnaz Laughlin MD Work Phone: [facility] 12-06-2024 21:08-0400 Heart rate 79 /min Mehnaz Laughlin MD Work Phone: [facility] 12-06-2024 21:08-0400 Respiratory rate 16 /min Mehnaz Laughlin MD Work Phone: [facility] 12-06-2024 21:08-0400 SaO2% (BldA) [Mass fraction] 97 % Mehnaz Laughlin MD Work Phone: [facility] 12-06-2024 21:08-0400 Systolic blood pressure 101 mm[Hg] Mehnaz Laughlin MD Work Phone: [facility] 12-06-2024 17:14-0400 Body height 162.56 cm Mehnaz Laughlin MD Work Phone: [facility] 12-06-2024 17:14-0400 Body mass index (BMI) [Ratio] 37.3 kg/m2 Mehnaz Laughlin MD Work Phone: [facility] 12-06-2024 17:14-0400 Body weight 98.61 kg Mehnaz Laughlin MD Work Phone: 4(280)030-070070 [place] [address] 12-01-2024 13:26-0400 Heart rate 93 /min Mehnaz Laughlin MD Work Phone: [facility] 12-01-2024 13:26-0400 Respiratory rate 18 /min Mehnaz Laughlin MD Work Phone: [facility] 12-01-2024 10:00-0400 Body temperature 97.1 [degF] Mehnaz Laughlin MD Work Phone: [facility] 12-01-2024 10:00-0400 Diastolic blood pressure 57 mm[Hg] Mehnaz Laughlin MD Work Phone: [facility] 12-01-2024 10:00-0400 SaO2% (BldA) [Mass fraction] 98 % Mehnaz Laughlin MD Work Phone: [facility] 12-01-2024 10:00-0400 Systolic blood pressure 151 mm[Hg] Mehnaz Laughlin MD Work Phone: [facility] 12-01-2024 03:46-0400 Body mass index (BMI) [Ratio] 37.8 kg/m2 Mehnaz Laughlin MD Work Phone: [facility] 12-01-2024 03:46-0400 Body weight 100.1 kg Mehnaz Laughlin MD Work Phone: [facility] 11-30-2024 19:56-0400 Body height 162.56 cm Mehnaz Laughlin MD Work Phone: [facility] 11-30-2024 19:13-0400 Body temperature 97.8 [degF] Mehnaz Laughlin MD Work Phone: [facility] 11-30-2024 19:13-0400 Diastolic blood pressure 113 mm[Hg] Mehnaz Laughlin MD Work Phone: [facility] 11-30-2024 19:13-0400 Heart rate 93 /min Mehnaz Laughlin MD Work Phone: [facility] 11-30-2024 19:13-0400 Respiratory rate 20 /min Mehnaz Laughlin MD Work Phone: [facility] 11-30-2024 19:13-0400 SaO2% (BldA) [Mass fraction] 100 % Mehnaz Laughlin MD Work Phone: [facility] 11-30-2024 19:13-0400 Systolic blood pressure 157 mm[Hg] Mehnaz Laughlin MD Work Phone: [facility] 11-30-2024 15:47-0400 Body height 162.56 cm Mehnaz Laughlin MD Work Phone: [facility] 11-30-2024 15:47-0400 Body mass index (BMI) [Ratio] 38.3 kg/m2 Mehnaz Laughlin MD Work Phone: [facility] 11-30-2024 15:47-0400 Body weight 101.4 kg Mehnaz Laughlin MD Work Phone: [facility] 11-07-2024 14:31-0400 Body height 162.56 cm Mehnaz Laughlin MD Work Phone: 9(483)822-976240 [place] [address] 11-07-2024 14:31-0400 Body mass index (BMI) [Ratio] 36.8 kg/m2 Mehnaz Laughlin MD Work Phone: [facility] 11-07-2024 14:31-0400 Body weight 97.52 kg Mehnaz Laughlin MD Work Phone: [facility] 11-07-2024 14:31-0400 Diastolic blood pressure 69 mm[Hg] Mehnaz Laughlin MD Work Phone: [facility] 11-07-2024 14:31-0400 Heart rate 86 /min Mehnaz Laughlin MD Work Phone: [facility] 11-07-2024 14:31-0400 SaO2% (BldA) [Mass fraction] 97 % Mehnaz Laughlin MD Work Phone: [facility] 11-07-2024 14:31-0400 Systolic blood pressure 108 mm[Hg] Mehnaz Laughlin MD Work Phone: [facility] 10-15-2024 13:57-0400 Diastolic blood pressure 90 mm[Hg] Mehnaz Laughlin MD Work Phone: [facility] 10-15-2024 13:57-0400 Heart rate 84 /min Mehnaz Laughlin MD Work Phone: 7(693)912-724940 [place] [address] 10-15-2024 13:57-0400 Respiratory rate 18 /min Mehnaz Laughlin MD Work Phone: 9(298)517-220170 [place] [address] 10-15-2024 13:57-0400 SaO2% (BldA) [Mass fraction] 100 % Mehnaz Laughlin MD Work Phone: [facility] 10-15-2024 13:57-0400 Systolic blood pressure 139 mm[Hg] Mehnaz Laughlin MD Work Phone: 1(913)095-301470 [place] [address] 10-15-2024 10:31-0400 Body height 162.56 cm Mehnaz Laughlin MD Work Phone: 9(000)898-045370 [place] [address] 10-15-2024 10:31-0400 Body mass index (BMI) [Ratio] 35.9 kg/m2 Mehnaz Laughlin MD Work Phone: 7(329)321-562370 [place] [address] 10-15-2024 10:31-0400 Body temperature 97 [degF] Mehnaz Laughlin MD Work Phone: 7(963)220-160270 [place] [address] 10-15-2024 10:31-0400 Body weight 95.11 kg Mehnaz Laughlin MD Work Phone: 9(280)521-277470 [place] [address] 09-12-2024 14:43-0400 Body height 162.56 cm Mehnaz Laughlin MD Work Phone: 7(218)534-032670 [place] [address] 09-12-2024 14:43-0400 Body mass index (BMI) [Ratio] 36.2 kg/m2 Mehnaz Laughlin MD Work Phone: 6(855)588-880570 [place] [address] 09-12-2024 14:43-0400 Body weight 95.7 kg Mehnaz Laughlin MD Work Phone: 3(505)546-328270 [place] [address] 09-12-2024 14:43-0400 Diastolic blood pressure 63 mm[Hg] Mehnaz Laughlin MD Work Phone: [facility] 09-12-2024 14:43-0400 Heart rate 84 /min Mehnaz Laughlin MD Work Phone: [facility] 09-12-2024 14:43-0400 SaO2% (BldA) [Mass fraction] 94 % Mehnaz Laughlin MD Work Phone: [facility] 09-12-2024 14:43-0400 Systolic blood pressure 93 mm[Hg] Mehnaz Laughlin MD Work Phone: [facility] 09-11-2024 17:00-0400 Diastolic blood pressure 84 mm[Hg] Mehnaz Laughlin MD Work Phone: [facility] 09-11-2024 17:00-0400 Heart rate 71 /min Mehnaz Laughlin MD Work Phone: [facility] 09-11-2024 17:00-0400 Respiratory rate 18 /min Mehnaz Laughlin MD Work Phone: [facility] 09-11-2024 17:00-0400 SaO2% (BldA) [Mass fraction] 98 % Mehnaz Laughlin MD Work Phone: [facility] 09-11-2024 17:00-0400 Systolic blood pressure 137 mm[Hg] Mehnaz Laughlin MD Work Phone: [facility] 09-11-2024 12:47-0400 Heart rate 72 /min Mehnaz Laughlin MD Work Phone: [facility] 09-11-2024 12:47-0400 Respiratory rate 16 /min Mehnaz Laughlin MD Work Phone: [facility] 09-11-2024 12:47-0400 SaO2% (BldA) [Mass fraction] 96 % Mehnaz Laughlin MD Work Phone: [facility] 09-11-2024 11:00-0400 Body temperature 97.6 [degF] Mehnaz Laughlin MD Work Phone: [facility] 09-11-2024 11:00-0400 Diastolic blood pressure 64 mm[Hg] Mehnaz Laughlin MD Work Phone: [facility] 09-11-2024 11:00-0400 Systolic blood pressure 118 mm[Hg] Mehnaz Laughlin MD Work Phone: [facility] 09-11-2024 07:17-0400 Inhaled oxygen flow rate 1 L/min Mehnaz Laughlin MD Work Phone: [facility] 09-11-2024 03:42-0400 Body mass index (BMI) [Ratio] 36.4 kg/m2 Mehnaz Laughlin MD Work Phone: [facility] 09-11-2024 03:42-0400 Body weight 96.4 kg Mehnaz Laughlin MD Work Phone: [facility] 09-10-2024 09:49-0400 Body height 162.56 cm Mehnaz Laughlin MD Work Phone: [facility] 09-09-2024 19:00-0400 Heart rate 109 /min Mehnaz Laughlin MD Work Phone: [facility] 09-09-2024 19:00-0400 Respiratory rate 26 /min Mehnaz Laughlin MD Work Phone: [facility] 09-09-2024 19:00-0400 SaO2% (BldA) [Mass fraction] 97 % Mehnaz Laughlin MD Work Phone: [facility] 09-09-2024 18:13-0400 Body temperature 98.1 [degF] Mehnaz Laughlin MD Work Phone: [facility] 09-09-2024 18:13-0400 Diastolic blood pressure 97 mm[Hg] Mehnaz Laughlin MD Work Phone: [facility] 09-09-2024 18:13-0400 Systolic blood pressure 135 mm[Hg] Mehnaz Laughlin MD Work Phone: [facility] 09-09-2024 17:00-0400 Inhaled oxygen flow rate 2 L/min Mehnaz Laughlin MD Work Phone: [facility] 09-09-2024 15:48-0400 Body height 162.56 cm Mehnaz Laughlin MD Work Phone: 5(506)016-499040 [place] [address] 09-09-2024 15:48-0400 Body mass index (BMI) [Ratio] 36.5 kg/m2 Mehnaz Laughlin MD Work Phone: 1(710)310-829940 [place] [address] 09-09-2024 15:48-0400 Body weight 96.43 kg Mehnaz Laughlin MD Work Phone: 6(467)827-761570 [place] [address] 06-13-2024 15:07-0500 Body mass index (BMI) [Ratio] 37.1 kg/m2 Mehnaz Laughlin MD Work Phone: 0(198)165-782370 [place] [address] 06-13-2024 15:07-0500 Body weight 98.14 kg Mehnaz Laughlin MD Work Phone: 3(675)117-990670 [place] [address] 06-13-2024 15:07-0500 Diastolic blood pressure 77 mm[Hg] Mehnaz Laughlin MD Work Phone: 9(130)976-682840 [place] [address] 06-13-2024 15:07-0500 Heart rate 59 /min Mehnaz Laughlin MD Work Phone: 2(628)643-419770 [place] [address] 06-13-2024 15:07-0500 SaO2% (BldA) [Mass fraction] 98 % Mehnaz Laughlin MD Work Phone: 9(959)385-822070 [place] [address] 06-13-2024 15:07-0500 Systolic blood pressure 131 mm[Hg] Mehnaz Laughlin MD Work Phone: [facility] 05-30-2024 20:42-0500 Body temperature 98 [degF] Mehnaz Laughlin MD Work Phone: [facility] 05-30-2024 20:42-0500 Diastolic blood pressure 81 mm[Hg] Mehnaz Laughlin MD Work Phone: [facility] 05-30-2024 20:42-0500 Heart rate 83 /min Mehnaz Laughlin MD Work Phone: [facility] 05-30-2024 20:42-0500 Respiratory rate 18 /min Mehnaz Laughlin MD Work Phone: [facility] 05-30-2024 20:42-0500 SaO2% (BldA) [Mass fraction] 99 % Mehnaz Laughlin MD Work Phone: [facility] 05-30-2024 20:42-0500 Systolic blood pressure 140 mm[Hg] Mehnaz Laughlin MD Work Phone: [facility] 05-30-2024 18:16-0500 Body mass index (BMI) [Ratio] 36.3 kg/m2 Mehnaz Laughlin MD Work Phone: [facility] 05-30-2024 18:16-0500 Body weight 96.2 kg Mehnaz Laughlin MD Work Phone: [facility] 09-10-2023 07:18-0400 Body temperature 97.7 [degF] Dr. Margo Tatum Work Phone: [facility] 09-10-2023 07:18-0400 Diastolic blood pressure 58 mm[Hg] Dr. Margo Tatum Work Phone: [facility] 09-10-2023 07:18-0400 Heart rate 62 /min Dr. Margo Tatum Work Phone: [facility] 09-10-2023 07:18-0400 Respiratory rate 16 /min Dr. Margo Tatum Work Phone: [facility] 09-10-2023 07:18-0400 SaO2% (BldA) [Mass fraction] 100 % Dr. Margo Tatum Work Phone: [facility] 09-10-2023 07:18-0400 Systolic blood pressure 104 mm[Hg] Dr. Margo Tatum Work Phone: [facility] 09-08-2023 16:52-0400 Inhaled oxygen flow rate 2 L/min Dr. Margo Tatum Work Phone: [facility] 09-06-2023 19:32-0400 Body height 162.[address] Margo Tatum Work Phone: [facility] 09-06-2023 19:32-0400 Body mass index (BMI) [Ratio] 35.9 kg/m2 Dr. Margo Tatum Work Phone: [facility] 09-06-2023 19:32-0400 Body weight 94.[address] Margo Tatum Work Phone: [facility] 09-06-2023 18:00-0400 Body temperature 98.6 [degF] Dr. Margo Tatum Work Phone: [facility] 09-06-2023 18:00-0400 Diastolic blood pressure 62 mm[Hg] Dr. Margo Tatum Work Phone: [facility] 09-06-2023 18:00-0400 Heart rate 78 /min Dr. Margo Tatum Work Phone: [facility] 09-06-2023 18:00-0400 Respiratory rate 12 /min Dr. aMrgo Tatum Work Phone: [facility] 09-06-2023 18:00-0400 SaO2% (BldA) [Mass fraction] 100 % Dr. Margo Tatum Work Phone: [facility] 09-06-2023 18:00-0400 Systolic blood pressure 129 mm[Hg] Dr. Margo Tatum Work Phone: [facility] 09-06-2023 11:42-0400 Body height 162.[address] Margo Tatum Work Phone: [facility] 09-06-2023 11:42-0400 Body mass index (BMI) [Ratio] 35.9 kg/m2 Dr. Margo Tatum Work Phone: [facility] 09-06-2023 11:42-0400 Body weight 94.[address] Margo Tatum Work Phone: [facility] 08-29-2023 15:00-0400 Body temperature 98.5 [degF] Dr. Margo Tatum Work Phone: [facility] 08-29-2023 15:00-0400 Diastolic blood pressure 41 mm[Hg] Dr. Margo Tatum Work Phone: [facility] 08-29-2023 15:00-0400 Heart rate 88 /min Dr. Margo Tatum Work Phone: [facility] 08-29-2023 15:00-0400 Respiratory rate 18 /min Dr. Margo Tatum Work Phone: [facility] 08-29-2023 15:00-0400 SaO2% (BldA) [Mass fraction] 97 % Dr. Margo Tatum Work Phone: [facility] 08-29-2023 15:00-0400 Systolic blood pressure 101 mm[Hg] Dr. Margo Tatum Work Phone: [facility] 08-29-2023 06:00-0400 Body mass index (BMI) [Ratio] 35.7 kg/m2 Dr. Margo Tatum Work Phone: [facility] 08-29-2023 06:00-0400 Body weight [address] Margo Tatum Work Phone: [facility] 08-26-2023 23:55-0400 Body height 162.[address] Margo Tatum Work Phone: [facility] 08-26-2023 23:00-0400 Diastolic blood pressure 77 mm[Hg] Dr. Margo Tatum Work Phone: [facility] 08-26-2023 23:00-0400 Heart rate 94 /min Dr. Margo Tatum Work Phone: [facility] 08-26-2023 23:00-0400 Respiratory rate 18 /min Dr. Margo Tatum Work Phone: [facility] 08-26-2023 23:00-0400 SaO2% (BldA) [Mass fraction] 96 % Dr. Margo Tatum Work Phone: [facility] 08-26-2023 23:00-0400 Systolic blood pressure 173 mm[Hg] Dr. Margo Tatum Work Phone: [facility] 08-26-2023 22:44-0400 Body temperature 98.8 [degF] Dr. Margo Tatum Work Phone: [facility] 08-26-2023 18:21-0400 Body height 162.[address] Margo Tatum Work Phone: [facility] 08-26-2023 18:21-0400 Body mass index (BMI) [Ratio] 35.6 kg/m2 Dr. Margo Tatum Work Phone: [facility] 08-26-2023 18:21-0400 Body weight 94.[address] Margo Tatum Work Phone: [facility] 08-11-2023 11:45-0500 Body height 162.[address] Margo Tatum Work Phone: [facility] 08-11-2023 11:45-0500 Body mass index (BMI) [Ratio] 35.9 kg/m2 Dr. Margo Tatum Work Phone: [facility] 08-11-2023 11:45-0500 Body temperature 98.6 [degF] Dr. Margo Tatum Work Phone: [facility] 08-11-2023 11:45-0500 Body weight 94.[address] Margo Tatum Work Phone: [facility] 08-11-2023 11:45-0500 Diastolic blood pressure 86 mm[Hg] Dr. Margo Tatum Work Phone: [facility] 08-11-2023 11:45-0500 Heart rate 88 /min Dr. Margo Tatum Work Phone: [facility] 08-11-2023 11:45-0500 Respiratory rate 18 /min Dr. Margo Tatum Work Phone: [facility] 08-11-2023 11:45-0500 SaO2% (BldA) [Mass fraction] 96 % Dr. Margo Tatum Work Phone: [facility] 08-11-2023 11:45-0500 Systolic blood pressure 116 mm[Hg] Dr. Margo Tatum Work Phone: [facility] 08-02-2023 11:55-0500 Body temperature 98.9 [degF] Dr. Margo Tatum Work Phone: [facility] 08-02-2023 11:55-0500 Diastolic blood pressure 78 mm[Hg] Dr. Margo Tatum Work Phone: [facility] 08-02-2023 11:55-0500 Heart rate 84 /min Dr. Margo Tatum Work Phone: [facility] 08-02-2023 11:55-0500 Respiratory rate 16 /min Dr. Margo Tatum Work Phone: [facility] 08-02-2023 11:55-0500 SaO2% (BldA) [Mass fraction] 97 % Dr. Margo Tatum Work Phone: [facility] 08-02-2023 11:55-0500 Systolic blood pressure 139 mm[Hg] Dr. Margo Tatum Work Phone: [facility] 08-02-2023 09:09-0500 Body mass index (BMI) [Ratio] 36.3 kg/m2 Dr. Margo Tatum Work Phone: [facility] 08-02-2023 09:09-0500 Body weight 95.[address] Margo Tatum Work Phone: [facility] 05-18-2023 13:15-0500 Heart rate 72 /min Dr. Margo Tatum Work Phone: [facility] 05-18-2023 13:15-0500 Inhaled oxygen flow rate 2 L/min Dr. Margo Tatum Work Phone: [facility] 05-18-2023 13:15-0500 Respiratory rate 16 /min Dr. Margo Tatum Work Phone: [facility] 05-18-2023 13:15-0500 SaO2% (BldA) [Mass fraction] 99 % Dr. Margo Tatum Work Phone: [facility] 05-18-2023 09:40-0500 Body height 162.[address] Margo Tatum Work Phone: [facility] 05-18-2023 09:40-0500 Body mass index (BMI) [Ratio] 36.2 kg/m2 Dr. Margo Tatum Work Phone: [facility] 05-18-2023 09:40-0500 Body temperature 97.6 [degF] Dr. Margo Tatum Work Phone: [facility] 05-18-2023 09:40-0500 Body weight 95.[address] Margo Tatum Work Phone: [facility] 05-18-2023 09:40-0500 Diastolic blood pressure 88 mm[Hg] Dr. Margo Tatum Work Phone: [facility] 05-18-2023 09:40-0500 Systolic blood pressure 151 mm[Hg] Dr. Margo Tatum Work Phone: [facility] 05-11-2023 14:15-0500 Body mass index (BMI) [Ratio] 37 kg/m2 Dr. Margo Tatum Work Phone: [facility] 05-11-2023 14:15-0500 Body temperature 98.7 [degF] Dr. Margo Tatum Work Phone: [facility] 05-11-2023 14:15-0500 Body weight 97.[address] Margo Tatum Work Phone: [facility] 05-11-2023 14:15-0500 Diastolic blood pressure 74 mm[Hg] Dr. Margo Tatum Work Phone: [facility] 05-11-2023 14:15-0500 Heart rate 78 /min Dr. Margo Tatum Work Phone: [facility] 05-11-2023 14:15-0500 Respiratory rate 16 /min Dr. Margo Tatum Work Phone: [facility] 05-11-2023 14:15-0500 SaO2% (BldA) [Mass fraction] 97 % Dr. Margo Tatum Work Phone: [facility] 05-11-2023 14:15-0500 Systolic blood pressure 116 mm[Hg] Dr. Margo Tatum Work Phone: [facility] 03-08-2023 10:03-0400 Body mass index (BMI) [Ratio] 37.9 kg/m2 Dr. Margo Tatum Work Phone: [facility] 03-08-2023 10:03-0400 Body weight 100.[address] Margo Tatum Work Phone: [facility] 03-08-2023 10:03-0400 Diastolic blood pressure 64 mm[Hg] Dr. Margo Tatum Work Phone: [facility] 03-08-2023 10:03-0400 Heart rate 72 /min Dr. Margo Tatum Work Phone: [facility] 03-08-2023 10:03-0400 Respiratory rate 18 /min Dr. Margo Tatum Work Phone: [facility] 03-08-2023 10:03-0400 Systolic blood pressure 115 mm[Hg] Dr. Margo Tatum Work Phone: [facility] 01-26-2023 10:43-0400 Body mass index (BMI) [Ratio] 38.9 kg/m2 Dr. Margo Tatum Work Phone: [facility] 01-26-2023 10:43-0400 Body temperature 98.3 [degF] Dr. Margo Tatum Work Phone: [facility] 01-26-2023 10:43-0400 Body weight 103.[address] Margo Tatum Work Phone: [facility] 01-26-2023 10:43-0400 Diastolic blood pressure 82 mm[Hg] Dr. Margo Tatum Work Phone: [facility] 01-26-2023 10:43-0400 Heart rate 78 /min Dr. Margo Tatum Work Phone: [facility] 01-26-2023 10:43-0400 Respiratory rate 20 /min Dr. Margo Tatum Work Phone: [facility] 01-26-2023 10:43-0400 SaO2% (BldA) [Mass fraction] 96 % Dr. Margo Tatum Work Phone: [facility] 01-26-2023 10:43-0400 Systolic blood pressure 152 mm[Hg] Dr. Margo Tatum Work Phone: [facility] 10-20-2022 16:08-0400 Body height 162.[address] Margo Tatum Work Phone: [facility] 10-20-2022 16:08-0400 Body mass index (BMI) [Ratio] 38.1 kg/m2 Dr. Margo Tatum Work Phone: [facility] 10-20-2022 16:08-0400 Body weight 100.[address] Margo Tatum Work Phone: [facility] 10-20-2022 16:08-0400 Diastolic blood pressure 88 mm[Hg] Dr. Margo Tatum Work Phone: [facility] 10-20-2022 16:08-0400 Heart rate 67 /min Dr. Margo Tatum Work Phone: [facility] 10-20-2022 16:08-0400 Respiratory rate 16 /min Dr. Margo Tatum Work Phone: [facility] 10-20-2022 16:08-0400 Systolic blood pressure 183 mm[Hg] Dr. Margo Tatum Work Phone: [facility] 10-18-2022 13:08-0400 Body mass index (BMI) [Ratio] 38.5 kg/m2 Dr. Margo Tatum Work Phone: [facility] 10-18-2022 13:08-0400 Body weight 101.[address] Margo Tatum Work Phone: [facility] 10-18-2022 12:18-0400 Body height 162.[address] Margo Tatum Work Phone: [facility] 10-18-2022 12:18-0400 Body temperature 98 [degF] Dr. Margo Tatum Work Phone: [facility] 10-18-2022 12:18-0400 Diastolic blood pressure 48 mm[Hg] Dr. Margo Tatum Work Phone: [facility] 10-18-2022 12:18-0400 Heart rate 85 /min Dr. Margo Tatum Work Phone: [facility] 10-18-2022 12:18-0400 Respiratory rate 16 /min Dr. Margo Tatum Work Phone: [facility] 10-18-2022 12:18-0400 SaO2% (BldA) [Mass fraction] 97 % Dr. Margo Tatum Work Phone: [facility] 10-18-2022 12:18-0400 Systolic blood pressure 151 mm[Hg] Dr. Margo Tatum Work Phone: [facility] 10-07-2022 17:19-0400 Diastolic blood pressure 78 mm[Hg] Dr. Margo Tatum Work Phone: [facility] 10-07-2022 17:19-0400 Heart rate 74 /min Dr. Margo Tatum Work Phone: [facility] 10-07-2022 17:19-0400 Respiratory rate 18 /min Dr. Margo Tatum Work Phone: [facility] 10-07-2022 17:19-0400 SaO2% (BldA) [Mass fraction] 99 % Dr. Margo Tatum Work Phone: [facility] 10-07-2022 17:19-0400 Systolic blood pressure 174 mm[Hg] Dr. Margo Tatum Work Phone: [facility] 10-07-2022 15:20-0400 Body height 164.[address] Margo Tatum Work Phone: [facility] 10-07-2022 15:20-0400 Body mass index (BMI) [Ratio] 39.5 kg/m2 Dr. Margo Tatum Work Phone: [facility] 10-07-2022 15:20-0400 Body temperature 98.5 [degF] Dr. Margo Tatum Work Phone: [facility] 10-07-2022 15:20-0400 Body weight 106.[address] Margo Tatum Work Phone: [facility] 09-23-2022 14:45-0400 Body height 162.[address] Margo Tatum Work Phone: [facility] 09-23-2022 14:45-0400 Body mass index (BMI) [Ratio] 38.8 kg/m2 Dr. Margo Tatum Work Phone: [facility] 09-23-2022 14:45-0400 Body temperature 97.3 [degF] Dr. Margo Tatum Work Phone: [facility] 09-23-2022 14:45-0400 Body weight 102.[address] Margo Tatum Work Phone: [facility] 09-23-2022 14:45-0400 Diastolic blood pressure 72 mm[Hg] Dr. Margo Tatum Work Phone: [facility] 09-23-2022 14:45-0400 Heart rate 70 /min Dr. Margo Tatum Work Phone: [facility] 09-23-2022 14:45-0400 Respiratory rate 16 /min Dr. Margo Tatum Work Phone: [facility] 09-23-2022 14:45-0400 SaO2% (BldA) [Mass fraction] 96 % Dr. Margo Tatum Work Phone: [facility] 09-23-2022 14:45-0400 Systolic blood pressure 102 mm[Hg] Dr. Margo Tatum Work Phone: [facility] 09-20-2022 20:05-0400 Diastolic blood pressure 117 mm[Hg] Rupali Shaw MD, PhD Work Phone: [facility] 09-20-2022 20:05-0400 Heart rate 99 /min Rupali Shaw MD, PhD Work Phone: [facility] 09-20-2022 20:05-0400 Respiratory rate 25 /min Rupali Shaw MD, PhD Work Phone: [facility] 09-20-2022 20:05-0400 SaO2% (BldA) [Mass fraction] 98 % Rupali Shaw MD, PhD Work Phone: [facility] 09-20-2022 20:05-0400 Systolic blood pressure 200 mm[Hg] Rupali Shaw MD, PhD Work Phone: [facility] 09-20-2022 15:04-0400 Body temperature 97.59 [degF] Rupali Shaw MD, PhD Work Phone: [facility] 09-20-2022 14:59-0400 Body height 163.8 cm Rupali Shaw MD, PhD Work Phone: [facility] 09-14-2022 13:55-0400 Body mass index (BMI) [Ratio] 39.1 kg/m2 Dr. Margo Tatum Work Phone: [facility] 09-14-2022 13:55-0400 Body weight 103.[address] Margo Tatum Work Phone: [facility] 09-14-2022 13:55-0400 Diastolic blood pressure 71 mm[Hg] Dr. Margo Tatum Work Phone: [facility] 09-14-2022 13:55-0400 Heart rate 71 /min Dr. Margo Tatum Work Phone: [facility] 09-14-2022 13:55-0400 Respiratory rate 20 /min Dr. Margo Tatum Work Phone: [facility] 09-14-2022 13:55-0400 SaO2% (BldA) [Mass fraction] 72 % Dr. Margo Tatum Work Phone: [facility] 09-14-2022 13:55-0400 Systolic blood pressure 137 mm[Hg] Dr. Margo Tatum Work Phone: [facility] 09-06-2022 04:41-0400 Body mass index (BMI) [Ratio] 38.2 kg/m2 Dr. Margo Tatum Work Phone: [facility] 09-06-2022 04:41-0400 Body temperature 97.6 [degF] Dr. Margo Tatum Work Phone: [facility] 09-06-2022 04:41-0400 Body weight 101.[address] Margo Tatum Work Phone: [facility] 09-06-2022 04:41-0400 Diastolic blood pressure 76 mm[Hg] Dr. Margo Tatum Work Phone: [facility] 09-06-2022 04:41-0400 Heart rate 79 /min Dr. Margo Tatum Work Phone: [facility] 09-06-2022 04:41-0400 Respiratory rate 18 /min Dr. Margo Tatum Work Phone: [facility] 09-06-2022 04:41-0400 SaO2% (BldA) [Mass fraction] 96 % Dr. Margo Tatum Work Phone: [facility] 09-06-2022 04:41-0400 Systolic blood pressure 158 mm[Hg] Dr. Margo Tatum Work Phone: [facility] 09-02-2022 12:01-0400 Diastolic blood pressure 73 mm[Hg] Dr. Margo Ttaum Work Phone: [facility] 09-02-2022 12:01-0400 Heart rate 79 /min Dr. Margo Tatum Work Phone: [facility] 09-02-2022 12:01-0400 Respiratory rate 16 /min Dr. Margo Tatum Work Phone: [facility] 09-02-2022 12:01-0400 SaO2% (BldA) [Mass fraction] 97 % Dr. Margo Tatum Work Phone: [facility] 09-02-2022 12:01-0400 Systolic blood pressure 132 mm[Hg] Dr. Margo Tatum Work Phone: [facility] 09-02-2022 09:26-0400 Body mass index (BMI) [Ratio] 38.2 kg/m2 Dr. Margo Tatum Work Phone: [facility] 09-02-2022 09:26-0400 Body temperature 98.2 [degF] Dr. Margo Tatum Work Phone: [facility] 09-02-2022 09:26-0400 Body weight 101.[address] Margo Tatum Work Phone: [facility] 08-18-2022 17:30-0400 Diastolic blood pressure 58 mm[Hg] Serafin Padron MD Work Phone: [facility] 08-18-2022 17:30-0400 Heart rate 83 /min Serafin Padron MD Work Phone: 2(180)[phone] [place] [address] 08-18-2022 17:30-0400 Respiratory rate 16 /min Serafin Padron MD Work Phone: 9(389)[phone] [place] [address] 08-18-2022 17:30-0400 SaO2% (BldA) [Mass fraction] 96 % Serafin Padron MD Work Phone: [facility] 08-18-2022 17:30-0400 Systolic blood pressure 112 mm[Hg] Serafin Padron MD Work Phone: [facility] 08-18-2022 08:30-0400 Body height 162.6 cm Serafni Padron MD Work Phone: 7(858)[phone] [place] [address] 08-18-2022 08:30-0400 Body mass index (BMI) [Ratio] 37.59 kg/m2 Serafin Padron MD Work Phone: 3(174)[phone] [place] [address] 08-18-2022 08:30-0400 Body temperature 97.7 [degF] Serafin Padron MD Work Phone: [facility] 08-18-2022 08:30-0400 Body weight 99.34 kg Serafin Padron MD Work Phone: [facility] 08-07-2022 16:48-0500 Diastolic blood pressure 45 mm[Hg] Dr. Margo Tatum Work Phone: [facility] 08-07-2022 16:48-0500 Heart rate 74 /min Dr. Margo Tatum Work Phone: [facility] 08-07-2022 16:48-0500 Systolic blood pressure 132 mm[Hg] Dr. Margo Tatum Work Phone: [facility] 08-07-2022 13:39-0500 Body temperature 97.9 [degF] Dr. Margo Tatum Work Phone: [facility] 08-07-2022 13:39-0500 Respiratory rate 16 /min Dr. Margo Tatum Work Phone: [facility] 08-07-2022 13:39-0500 SaO2% (BldA) [Mass fraction] 100 % Dr. Margo Tatum Work Phone: [facility] 08-07-2022 07:33-0500 Body temperature 97.9 [degF] Dr. Margo Tatum Work Phone: [facility] 08-07-2022 07:33-0500 Diastolic blood pressure 71 mm[Hg] Dr. Margo Tatum Work Phone: [facility] 08-07-2022 07:33-0500 Heart rate 72 /min Dr. Margo Tatum Work Phone: [facility] 08-07-2022 07:33-0500 Respiratory rate 18 /min Dr. Margo Tatum Work Phone: [facility] 08-07-2022 07:33-0500 SaO2% (BldA) [Mass fraction] 97 % Dr. Margo Tatum Work Phone: [facility] 08-07-2022 07:33-0500 Systolic blood pressure 114 mm[Hg] Dr. Margo Tatum Work Phone: [facility] 08-06-2022 22:49-0500 Body height 162.[address] Margo Tatum Work Phone: [facility] 08-06-2022 22:49-0500 Body mass index (BMI) [Ratio] 37.3 kg/m2 Dr. Margo Tatum Work Phone: [facility] 08-06-2022 22:49-0500 Body weight 98.[address] Margo Tatum Work Phone: [facility] 08-06-2022 22:30-0500 Body temperature 97.6 [degF] Dr. Margo Tatum Work Phone: [facility] 08-06-2022 22:30-0500 Diastolic blood pressure 81 mm[Hg] Dr. Margo Tatum Work Phone: [facility] 08-06-2022 22:30-0500 Heart rate 81 /min Dr. Margo Tatum Work Phone: [facility] 08-06-2022 22:30-0500 Respiratory rate 15 /min Dr. Margo Tatum Work Phone: [facility] 08-06-2022 22:30-0500 SaO2% (BldA) [Mass fraction] 97 % Dr. Margo Tatum Work Phone: [facility] 08-06-2022 22:30-0500 Systolic blood pressure 154 mm[Hg] Dr. Margo Tatum Work Phone: [facility] 08-06-2022 17:51-0500 Body height 162.[address] Margo Tatum Work Phone: [facility] 06-30-2022 10:58-0500 Body height 162.[address] Margo Tatum Work Phone: [facility] 06-30-2022 10:58-0500 Body mass index (BMI) [Ratio] 35.9 kg/m2 Dr. Margo Tatum Work Phone: [facility] 06-30-2022 10:58-0500 Body temperature 96 [degF] Dr. Margo Tatum Work Phone: [facility] 06-30-2022 10:58-0500 Body weight 94.[address] Margo Tatum Work Phone: [facility] 06-30-2022 10:58-0500 Diastolic blood pressure 78 mm[Hg] Dr. Margo Tatum Work Phone: [facility] 06-30-2022 10:58-0500 Heart rate 70 /min Dr. Margo Tatum Work Phone: [facility] 06-30-2022 10:58-0500 Respiratory rate 22 /min Dr. Margo Tatum Work Phone: [facility] 06-30-2022 10:58-0500 SaO2% (BldA) [Mass fraction] 100 % Dr. Margo Tatum Work Phone: [facility] 06-30-2022 10:58-0500 Systolic blood pressure 158 mm[Hg] Dr. Margo Tatum Work Phone: [facility] 06-09-2022 10:24-0500 Body mass index (BMI) [Ratio] 36.9 kg/m2 Dr. Margo Tatum Work Phone: [facility] 06-09-2022 10:24-0500 Body temperature 97 [degF] Dr. Margo Tatum Work Phone: [facility] 06-09-2022 10:24-0500 Body weight 97.[address] Margo Tatum Work Phone: [facility] 06-09-2022 10:24-0500 Diastolic blood pressure 78 mm[Hg] Dr. Margo Tatum Work Phone: [facility] 06-09-2022 10:24-0500 Heart rate 71 /min Dr. Margo Tatum Work Phone: [facility] 06-09-2022 10:24-0500 Respiratory rate 18 /min Dr. Margo Tatum Work Phone: [facility] 06-09-2022 10:24-0500 SaO2% (BldA) [Mass fraction] 97 % Dr. Margo Tatum Work Phone: [facility] 06-09-2022 10:24-0500 Systolic blood pressure 126 mm[Hg] Dr. Margo Tatum Work Phone: [facility] 05-18-2022 13:53-0500 Body height 162.[address] Margo Tatum Work Phone: [facility] Work Phone: 05-18-2022 13:53-0500 Body mass index (BMI) [Ratio] 36.3 kg/m2 Dr. Margo Tatum Work Phone: [facility] 05-18-2022 13:53-0500 Body temperature 97.5 [degF] Dr. Margo Tatum Work Phone: [facility] 05-18-2022 13:53-0500 Body weight 96.[address] Margo Tatum Work Phone: [facility] 05-18-2022 13:53-0500 Diastolic blood pressure 77 mm[Hg] Dr. Margo Tatum Work Phone: [facility] 05-18-2022 13:53-0500 Heart rate 58 /min Dr. Margo Tatum Work Phone: [facility] 05-18-2022 13:53-0500 Respiratory rate 18 /min Dr. Margo Tatum Work Phone: [facility] 05-18-2022 13:53-0500 SaO2% (BldA) [Mass fraction] 100 % Dr. Margo Tatum Work Phone: [facility] 05-18-2022 13:53-0500 Systolic blood pressure 147 mm[Hg] Dr. Margo Tatum Work Phone: [facility] 05-08-2022 14:00-0500 Diastolic blood pressure 88 mm[Hg] Dr. Margo Tatum Work Phone: [facility] 05-08-2022 14:00-0500 Heart rate 77 /min Dr. Margo Tatum Work Phone: [facility] 05-08-2022 14:00-0500 Respiratory rate 18 /min Dr. Margo Tatum Work Phone: [facility] 05-08-2022 14:00-0500 SaO2% (BldA) [Mass fraction] 97 % Dr. Margo Tatum Work Phone: [facility] 05-08-2022 14:00-0500 Systolic blood pressure 130 mm[Hg] Dr. Margo Tatum Work Phone: [facility] 05-08-2022 12:01-0500 Body height 162.[address] Margo Tatum Work Phone: [facility] Work Phone: 05-08-2022 12:01-0500 Body mass index (BMI) [Ratio] 36 kg/m2 Dr. Margo Tatum Work Phone: [facility] 05-08-2022 12:01-0500 Body temperature 97.5 [degF] Dr. Margo Tatum Work Phone: [facility] 05-08-2022 12:01-0500 Body weight 95.[address] Margo Tatum Work Phone: [facility] 05-06-2022 14:23-0500 Body mass index (BMI) [Ratio] 36.1 kg/m2 Dr. Margo Tatum Work Phone: [facility] 05-06-2022 14:23-0500 Body temperature 97 [degF] Dr. Margo Tatum Work Phone: [facility] 05-06-2022 14:23-0500 Body weight 95.[address] Margo Tatum Work Phone: [facility] 05-06-2022 14:23-0500 Diastolic blood pressure 67 mm[Hg] Dr. Margo Tatum Work Phone: [facility] 05-06-2022 14:23-0500 Heart rate 82 /min Dr. Margo Tatum Work Phone: [facility] 05-06-2022 14:23-0500 Respiratory rate 20 /min Dr. Margo Tatum Work Phone: [facility] 05-06-2022 14:23-0500 SaO2% (BldA) [Mass fraction] 98 % Dr. Margo Tatum Work Phone: [facility] 05-06-2022 14:23-0500 Systolic blood pressure 121 mm[Hg] Dr. Margo Tatum Work Phone: [facility] 04-13-2022 14:16-0500 Body height 162.[address] Margo Tatum Work Phone: [facility] Work Phone: 04-13-2022 14:16-0500 Body mass index (BMI) [Ratio] 35.9 kg/m2 Dr. Margo Tatum Work Phone: [facility] 04-13-2022 14:16-0500 Body weight 94.[address] Margo Tatum Work Phone: [facility] 04-13-2022 14:16-0500 Diastolic blood pressure 63 mm[Hg] Dr. Margo Tatum Work Phone: [facility] 04-13-2022 14:16-0500 Heart rate 73 /min Dr. Margo Tatum Work Phone: [facility] 04-13-2022 14:16-0500 Respiratory rate 18 /min Dr. Margo Tatum Work Phone: [facility] 04-13-2022 14:16-0500 Systolic blood pressure 120 mm[Hg] Dr. Margo Tatum Work Phone: [facility] 04-05-2022 20:28-0400 Diastolic blood pressure 86 mm[Hg] Dr. Margo Tatum Work Phone: [facility] 04-05-2022 20:28-0400 Systolic blood pressure 149 mm[Hg] Dr. Margo Tatum Work Phone: [facility] 04-05-2022 19:47-0400 Heart rate 76 /min Dr. Margo Tatum Work Phone: [facility] 04-05-2022 19:47-0400 Respiratory rate 19 /min Dr. Margo Tatum Work Phone: [facility] 04-05-2022 19:47-0400 SaO2% (BldA) [Mass fraction] 98 % Dr. Marog Tatum Work Phone: [facility] 04-05-2022 16:03-0400 Body height 162.[address] Margo Tatum Work Phone: [facility] Work Phone: 04-05-2022 16:03-0400 Body mass index (BMI) [Ratio] 36.7 kg/m2 Dr. Margo Tatum Work Phone: [facility] 04-05-2022 16:03-0400 Body temperature 98.3 [degF] Dr. Margo Tatum Work Phone: [facility] 04-05-2022 16:03-0400 Body weight 97.[address] Margo Tatum Work Phone: [facility] 02-24-2022 11:43-0400 Body mass index (BMI) [Ratio] 34.8 kg/m2 Dr. Margo Tatum Work Phone: [facility] Work Phone: 02-24-2022 11:43-0400 Body weight 92.[address] Margo Tatum Work Phone: [facility] Work Phone: 02-24-2022 11:43-0400 Diastolic blood pressure 72 mm[Hg] Dr. Margo Tatum Work Phone: [facility] Work Phone: 02-24-2022 11:43-0400 Heart rate 68 /min Dr. Margo Tatum Work Phone: [facility] Work Phone: 02-24-2022 11:43-0400 Respiratory rate 20 /min Dr. Margo Tatum Work Phone: [facility] Work Phone: 02-24-2022 11:43-0400 Systolic blood pressure 144 mm[Hg] Dr. Margo Tatum Work Phone: [facility] Work Phone: 01-25-2022 00:01-0400 Diastolic blood pressure 63 mm[Hg] Dr. Margo Tatum Work Phone: [facility] Work Phone: 01-25-2022 00:01-0400 Heart rate 79 /min Dr. Margo Tatum Work Phone: [facility] Work Phone: 01-25-2022 00:01-0400 Respiratory rate 16 /min Dr. Margo Tatum Work Phone: [facility] Work Phone: 01-25-2022 00:01-0400 SaO2% (BldA) [Mass fraction] 98 % Dr. Margo Tatum Work Phone: [facility] Work Phone: 01-25-2022 00:01-0400 Systolic blood pressure 151 mm[Hg] Dr. Margo Ttaum Work Phone: [facility] Work Phone: 01-24-2022 20:22-0400 Body mass index (BMI) [Ratio] 35.6 kg/m2 Dr. Margo Tatum Work Phone: [facility] Work Phone: 01-24-2022 20:22-0400 Body temperature 98 [degF] Dr. Margo Tatum Work Phone: [facility] Work Phone: 01-24-2022 20:22-0400 Body weight 94.[address] Margo Tatum Work Phone: [facility] Work Phone: 01-12-2022 09:53-0400 Body mass index (BMI) [Ratio] 34.7 kg/m2 Dr. Margo Tatum Work Phone: [facility] Work Phone: 01-12-2022 09:53-0400 Body weight 91.[address] Margo Tatum Work Phone: [facility] Work Phone: 01-12-2022 09:53-0400 Diastolic blood pressure 70 mm[Hg] Dr. Margo Tatum Work Phone: [facility] Work Phone: 01-12-2022 09:53-0400 Heart rate 72 /min Dr. Margo Tatum Work Phone: [facility] Work Phone: 01-12-2022 09:53-0400 Systolic blood pressure 110 mm[Hg] Dr. Margo Tatum Work Phone: [facility] Work Phone: 12-29-2021 09:07-0400 Body mass index (BMI) [Ratio] 34 kg/m2 Dr. Margo Tatum Work Phone: [facility] Work Phone: 12-29-2021 09:07-0400 Body weight 89.[address] Margo Tatum Work Phone: [facility] Work Phone: 12-29-2021 09:07-0400 Diastolic blood pressure 73 mm[Hg] Dr. Margo Tatum Work Phone: [facility] Work Phone: 12-29-2021 09:07-0400 Heart rate 75 /min Dr. Margo Tatum Work Phone: [facility] Work Phone: 12-29-2021 09:07-0400 SaO2% (BldA) [Mass fraction] 96 % Dr. Margo Tatum Work Phone: [facility] Work Phone: 12-29-2021 09:07-0400 Systolic blood pressure 124 mm[Hg] Dr. Margo Tatum Work Phone: [facility] Work Phone: 11-17-2021 06:46-0400 Diastolic blood pressure 60 mm[Hg] Dr. Margo Tatum Work Phone: [facility] Work Phone: 11-17-2021 06:46-0400 Heart rate 64 /min Dr. Margo Tatum Work Phone: [facility] Work Phone: 11-17-2021 06:46-0400 Respiratory rate 16 /min Dr. Margo Tatum Work Phone: [facility] Work Phone: 11-17-2021 06:46-0400 SaO2% (BldA) [Mass fraction] 95 % Dr. Margo Tatum Work Phone: [facility] Work Phone: 11-17-2021 06:46-0400 Systolic blood pressure 97 mm[Hg] Dr. Margo Tatum Work Phone: [facility] Work Phone: 11-17-2021 04:42-0400 Body height 162.[address] Margo Tatum Work Phone: [facility] Work Phone: 11-17-2021 04:42-0400 Body mass index (BMI) [Ratio] 35.4 kg/m2 Dr. Margo Tatum Work Phone: [facility] Work Phone: 11-17-2021 04:42-0400 Body temperature 97 [degF] Dr. Margo Tatum Work Phone: [facility] Work Phone: 11-17-2021 04:42-0400 Body weight 93.[address] Margo Tatum Work Phone: [facility] Work Phone: 11-06-2021 18:46-0400 Heart rate 84 /min Dr. Margo Tatum Work Phone: [facility] Work Phone: 11-06-2021 18:46-0400 Respiratory rate 18 /min Dr. Margo Tatum Work Phone: [facility] Work Phone: 11-06-2021 18:46-0400 SaO2% (BldA) [Mass fraction] 98 % Dr. Margo Tatum Work Phone: [facility] Work Phone: 11-06-2021 18:20-0400 Body height 162.[address] Margo Tatum Work Phone: [facility] Work Phone: 11-06-2021 18:20-0400 Body mass index (BMI) [Ratio] 34.9 kg/m2 Dr. Margo Tatum Work Phone: [facility] Work Phone: 11-06-2021 18:20-0400 Body temperature 98.6 [degF] Dr. Margo Tatum Work Phone: [facility] Work Phone: 11-06-2021 18:20-0400 Body weight 92.[address] Margo Tatum Work Phone: [facility] Work Phone: 11-06-2021 18:20-0400 Diastolic blood pressure 86 mm[Hg] Dr. Margo Tatum Work Phone: [facility] Work Phone: 11-06-2021 18:20-0400 Systolic blood pressure 171 mm[Hg] Dr. Margo Tatum Work Phone: [facility] Work Phone: 10-15-2021 13:43-0400 Body height 165.[address] Margo Tatum Work Phone: [facility] Work Phone: 10-15-2021 13:43-0400 Body mass index (BMI) [Ratio] 32.8 kg/m2 Dr. Margo Tatum Work Phone: [facility] Work Phone: 10-15-2021 13:43-0400 Body weight 89.[address] Margo Tatum Work Phone: [facility] Work Phone: 10-15-2021 13:43-0400 Diastolic blood pressure 85 mm[Hg] Dr. Margo Tatum Work Phone: [facility] Work Phone: 10-15-2021 13:43-0400 Heart rate 70 /min Dr. Margo Tatum Work Phone: [facility] Work Phone: 10-15-2021 13:43-0400 Respiratory rate 22 /min Dr. Margo Tatum Work Phone: [facility] Work Phone: 10-15-2021 13:43-0400 SaO2% (BldA) [Mass fraction] 96 % Dr. Margo Tatum Work Phone: [facility] Work Phone: 10-15-2021 13:43-0400 Systolic blood pressure 135 mm[Hg] Dr. Margo Tatum Work Phone: [facility] Work Phone: 09-20-2021 21:41-0400 Diastolic blood pressure 82 mm[Hg] Dr. Margo Tatum Work Phone: [facility] Work Phone: 09-20-2021 21:41-0400 Heart rate 74 /min Dr. Margo Tatum Work Phone: [facility] Work Phone: 09-20-2021 21:41-0400 Respiratory rate 16 /min Dr. Margo Tatum Work Phone: [facility] Work Phone: 09-20-2021 21:41-0400 SaO2% (BldA) [Mass fraction] 94 % Dr. Margo Tatum Work Phone: [facility] Work Phone: 09-20-2021 21:41-0400 Systolic blood pressure 142 mm[Hg] Dr. Margo Tatum Work Phone: [facility] Work Phone: 09-20-2021 19:07-0400 Body height 165.[address] Margo Tatum Work Phone: [facility] Work Phone: 09-20-2021 19:07-0400 Body mass index (BMI) [Ratio] 32.3 kg/m2 Dr. Margo Tatum Work Phone: [facility] Work Phone: 09-20-2021 19:07-0400 Body temperature 97.1 [degF] Dr. Margo Tatum Work Phone: [facility] Work Phone: 09-20-2021 19:07-0400 Body weight 87.[address] Margo Tatum Work Phone: [facility] Work Phone: 09-16-2021 23:00-0400 Diastolic blood pressure 59 mm[Hg] Dr. Margo Tatum Work Phone: [facility] Work Phone: 09-16-2021 23:00-0400 Heart rate 65 /min Dr. Margo Tatum Work Phone: [facility] Work Phone: 09-16-2021 23:00-0400 Respiratory rate 18 /min Dr. Margo Tatum Work Phone: [facility] Work Phone: 09-16-2021 23:00-0400 SaO2% (BldA) [Mass fraction] 98 % Dr. Margo Tatum Work Phone: [facility] Work Phone: 09-16-2021 23:00-0400 Systolic blood pressure 100 mm[Hg] Dr. Margo Tatum Work Phone: [facility] Work Phone: 09-16-2021 20:44-0400 Body height 154.[address] Margo Tatum Work Phone: [facility] Work Phone: 09-16-2021 20:44-0400 Body mass index (BMI) [Ratio] 36.1 kg/m2 Dr. Margo Tatum Work Phone: [facility] Work Phone: 09-16-2021 20:44-0400 Body temperature 97.4 [degF] Dr. Margo Tatum Work Phone: [facility] Work Phone: 09-16-2021 20:44-0400 Body weight 86.[address] Margo Tatum Work Phone: [facility] Work Phone: 09-14-2021 14:17-0400 Body temperature 97.7 [degF] Dr. Margo Tatum Work Phone: [facility] Work Phone: 09-14-2021 14:17-0400 Diastolic blood pressure 62 mm[Hg] Dr. Margo Tatum Work Phone: [facility] Work Phone: 09-14-2021 14:17-0400 Heart rate 74 /min Dr. Margo Tatum Work Phone: [facility] Work Phone: 09-14-2021 14:17-0400 Respiratory rate 20 /min Dr. Margo Tatum Work Phone: [facility] Work Phone: 09-14-2021 14:17-0400 SaO2% (BldA) [Mass fraction] 98 % Dr. Margo Tatum Work Phone: [facility] Work Phone: 09-14-2021 14:17-0400 Systolic blood pressure 107 mm[Hg] Dr. Margo Tatum Work Phone: [facility] Work Phone: 09-14-2021 05:29-0400 Body weight 88.[address] Margo Tatum Work Phone: [facility] Work Phone: 09-11-2021 09:55-0400 Body height 162.[address] Margo Tatum Work Phone: [facility] Work Phone: 09-11-2021 06:00-0400 Inhaled oxygen concentration 25 % Dr. Margo Tatum Work Phone: [facility] Work Phone: 09-08-2021 23:47-0400 Body mass index (BMI) [Ratio] 35.4 kg/m2 Dr. Margo Tatum Work Phone: [facility] Work Phone: 09-08-2021 23:02-0400 Diastolic blood pressure 95 mm[Hg] Dr. Margo Tatum Work Phone: [facility] Work Phone: 09-08-2021 23:02-0400 Heart rate 103 /min Dr. Margo Tatum Work Phone: [facility] Work Phone: 09-08-2021 23:02-0400 Respiratory rate 21 /min Dr. Margo Tatum Work Phone: [facility] Work Phone: 09-08-2021 23:02-0400 Systolic blood pressure 145 mm[Hg] Dr. Margo Tatum Work Phone: [facility] Work Phone: 09-08-2021 22:51-0400 Body temperature 97.2 [degF] Dr. Margo Tatum Work Phone: [facility] Work Phone: 09-08-2021 22:51-0400 Inhaled oxygen concentration 100 % Dr. Margo Tatum Work Phone: [facility] Work Phone: 09-08-2021 22:51-0400 SaO2% (BldA) [Mass fraction] 98 % Dr. Margo Tatum Work Phone: [facility] Work Phone: 09-08-2021 19:59-0400 Body height 162.[address] Margo Tatum Work Phone: [facility] Work Phone: 09-08-2021 19:59-0400 Body mass index (BMI) [Ratio] 36.3 kg/m2 Dr. Margo Tatum Work Phone: [facility] Work Phone: 09-08-2021 19:59-0400 Body weight 96.[address] Margo Tatum Work Phone: [facility] Work Phone: 07-19-2021 10:40-0500 Body temperature 97.9 [degF] Dr. Margo Tatum Work Phone: [facility] Work Phone: 07-19-2021 10:40-0500 Diastolic blood pressure 56 mm[Hg] Dr. Margo Tatum Work Phone: [facility] Work Phone: 07-19-2021 10:40-0500 Heart rate 65 /min Dr. Margo Tatum Work Phone: [facility] Work Phone: 07-19-2021 10:40-0500 Respiratory rate 18 /min Dr. Margo Tatum Work Phone: [facility] Work Phone: 07-19-2021 10:40-0500 SaO2% (BldA) [Mass fraction] 97 % Dr. Margo Tatum Work Phone: [facility] Work Phone: 07-19-2021 10:40-0500 Systolic blood pressure 120 mm[Hg] Dr. Margo Tatum Work Phone: [facility] Work Phone: 07-18-2021 14:27-0500 Body weight 89.[address] Margo Tatum Work Phone: [facility] Work Phone: 07-17-2021 15:30-0500 Body mass index (BMI) [Ratio] 34 kg/m2 Dr. Margo Tatum Work Phone: [facility] Work Phone: 06-09-2021 09:17-0500 Body mass index (BMI) [Ratio] 35.5 kg/m2 Dr. Margo Tatum Work Phone: [facility] Work Phone: 06-09-2021 09:17-0500 Body temperature 98.3 [degF] Dr. Margo Tatum Work Phone: [facility] Work Phone: 06-09-2021 09:17-0500 Body weight 93.[address] Margo Tatum Work Phone: [facility] Work Phone: 06-09-2021 09:17-0500 Diastolic blood pressure 56 mm[Hg] Dr. Margo Tatum Work Phone: [facility] Work Phone: 06-09-2021 09:17-0500 Heart rate 80 /min Dr. Margo Tatum Work Phone: [facility] Work Phone: 06-09-2021 09:17-0500 Respiratory rate 18 /min Dr. Margo Tatum Work Phone: [facility] Work Phone: 06-09-2021 09:17-0500 SaO2% (BldA) [Mass fraction] 96 % Dr. Margo Tatum Work Phone: [facility] Work Phone: 06-09-2021 09:17-0500 Systolic blood pressure 121 mm[Hg] Dr. Margo Tatum Work Phone: [facility] Work Phone: 06-08-2021 12:35-0500 Body mass index (BMI) [Ratio] 35.2 kg/m2 Dr. Margo Tatum Work Phone: [facility] Work Phone: 06-08-2021 12:35-0500 Body weight 92.[address] Margo Tatum Work Phone: [facility] Work Phone: 06-08-2021 12:35-0500 Diastolic blood pressure 63 mm[Hg] Dr. Margo Tatum Work Phone: [facility] Work Phone: 06-08-2021 12:35-0500 Heart rate 90 /min Dr. Margo Tatum Work Phone: [facility] Work Phone: 06-08-2021 12:35-0500 Respiratory rate 20 /min Dr. Margo Tatum Work Phone: [facility] Work Phone: 06-08-2021 12:35-0500 SaO2% (BldA) [Mass fraction] 98 % Dr. Margo Tatum Work Phone: [facility] Work Phone: 06-08-2021 12:35-0500 Systolic blood pressure 145 mm[Hg] Dr. Margo Tatum Work Phone: [facility] Work Phone: 06-07-2021 15:55-0500 Diastolic blood pressure 79 mm[Hg] Dr. Margo Tatum Work Phone: [facility] Work Phone: 01-02-2022 15:55-0500 Heart rate 71 /min Dr. Margo Tatum Work Phone: [facility] Work Phone: 06-07-2021 15:55-0500 Respiratory rate 15 /min Dr. Margo Tatum Work Phone: [facility] Work Phone: 06-07-2021 15:55-0500 SaO2% (BldA) [Mass fraction] 96 % Dr. Margo Tatum Work Phone: [facility] Work Phone: 06-07-2021 15:55-0500 Systolic blood pressure 135 mm[Hg] Dr. Margo Tatum Work Phone: [facility] Work Phone: 06-07-2021 12:40-0500 Body temperature 97.6 [degF] Dr. Margo Tatum Work Phone: [facility] Work Phone: 06-07-2021 11:25-0500 Body mass index (BMI) [Ratio] 35.3 kg/m2 Dr. Margo Tatum Work Phone: [facility] Work Phone: 06-07-2021 11:25-0500 Body weight 93.[address] Margo Tatum Work Phone: [facility] Work Phone: 06-04-2021 14:38-0500 Diastolic blood pressure 75 mm[Hg] Dr. Margo Tatum Work Phone: [facility] Work Phone: 06-04-2021 14:38-0500 Heart rate 71 /min Dr. Margo Tatum Work Phone: [facility] Work Phone: 06-04-2021 14:38-0500 Respiratory rate 16 /min Dr. Margo Tatum Work Phone: [facility] Work Phone: 06-04-2021 14:38-0500 SaO2% (BldA) [Mass fraction] 95 % Dr. Margo Tatum Work Phone: [facility] Work Phone: 06-04-2021 14:38-0500 Systolic blood pressure 126 mm[Hg] Dr. Margo Tatum Work Phone: [facility] Work Phone: 06-04-2021 11:51-0500 Body mass index (BMI) [Ratio] 35.3 kg/m2 Dr. Margo Tatum Work Phone: [facility] Work Phone: 06-04-2021 11:51-0500 Body temperature 97.8 [degF] Dr. Margo Tatum Work Phone: [facility] Work Phone: 06-04-2021 11:51-0500 Body weight 93.[address] Margo Tatum Work Phone: [facility] Work Phone: 05-25-2021 13:16-0500 SaO2% (BldA) [Mass fraction] 94 % Dr. Margo Tatum Work Phone: [facility] Work Phone: 05-25-2021 13:00-0500 Body temperature 97.9 [degF] Dr. Margo Tatum Work Phone: [facility] Work Phone: 05-25-2021 13:00-0500 Diastolic blood pressure 80 mm[Hg] Dr. Margo Tatum Work Phone: [facility] Work Phone: 05-25-2021 13:00-0500 Heart rate 78 /min Dr. Margo Tatum Work Phone: [facility] Work Phone: 05-25-2021 13:00-0500 Respiratory rate 18 /min Dr. Margo Tatum Work Phone: [facility] Work Phone: 05-25-2021 13:00-0500 Systolic blood pressure 121 mm[Hg] Dr. Margo Tatum Work Phone: [facility] Work Phone: 05-25-2021 09:41-0500 Body weight 94.[address] Margo Tatum Work Phone: [facility] Work Phone: 05-22-2021 22:40-0500 Body mass index (BMI) [Ratio] 35.6 kg/m2 Dr. Margo Tatum Work Phone: [facility] Work Phone: 05-20-2021 07:56-0500 Respiratory rate 18 /min Dr. Margo Tatum Work Phone: [facility] Work Phone: 05-20-2021 04:53-0500 SaO2% (BldA) [Mass fraction] 96 % Dr. Margo Tatum Work Phone: [facility] Work Phone: 05-19-2021 14:04-0500 Heart rate 95 /min Dr. Margo Tatum Work Phone: [facility] Work Phone: 05-19-2021 05:29-0500 Body temperature 98 [degF] Dr. Margo Tatum Work Phone: [facility] Work Phone: 05-19-2021 05:29-0500 Diastolic blood pressure 69 mm[Hg] Dr. Margo Tatum Work Phone: [facility] Work Phone: 05-19-2021 05:29-0500 Systolic blood pressure 113 mm[Hg] Dr. Margo Tatum Work Phone: [facility] Work Phone: 05-18-2021 23:29-0500 Body mass index (BMI) [Ratio] 36.8 kg/m2 Dr. Margo Tatum Work Phone: [facility] Work Phone: 05-18-2021 23:29-0500 Body weight 97.[address] Margo Tatum Work Phone: [facility] Work Phone: Encounters Encounter Date Encounter Type Care Provider Facility Start: 04-02-2025 Encounter for genera l adult medical examination [facility] Start: 03-26-2025 End: 03-26-[address] [facility] Facility:[facility] Start: 03-18-2025 End: 03-18-[address] [facility] Facility:[facility] Start: 03-18-2025 End: 03-18-2025 Dr. Cr Ho MD -[facility] Work Phone: Start: 02-25-2025 End: 02-25-2025 ambulatory Mehnaz Laughlin MD Work Phone: -Sleep Lab Start: 02-25-2025 End: 02-25-2025 BAD WORK GATHERER Susan Urena -Sleep Lab Work Phone: Start: 02-25-2025 End: 02-25-2025 [facility] Start: 01-29-2025 End: 01-29-2025 Dr. Cr Ho MD -[facility] Work Phone: Start: 01-29-2025 End: 01-29-2025 ambulatory Mehnaz Laughlin MD Work Phone: -[facility] Start: 01-23-2025 End: 01-23-2025 ambulatory Mehnaz Laughlin MD Work Phone: -[facility] Start: 01-23-2025 End: 01-23-2025 BAD WORK GATHERER Susan Urena -[facility] Work Phone: Start: 01-22-2025 End: 01-23-2025 ambulatory Mehnaz Laughlin MD Work Phone: -Sleep Lab Start: 01-22-2025 End: 01-22-2025 BAD WORK GATHERER Susan Urena -Sleep Lab Work Phone: Start: 01-22-2025 End: 01-22-2025 ambulatory Margo Tatum Facility:[facility] Start: 01-11-2025 End: 01-11-2025 Mehnaz Laughlin MD Work Phone: -Emergency Department Work Phone: Start: 01-11-2025 End: 01-11-2025 Emergency department patient visit Mehnaz Laughlin MD Work Phone: -Emergency Department Start: 01-11-2025 End: 01-11-2025 ambulatory Mehnaz Laughlin MD Work Phone: -Laboratory Start: 01-11-2025 End: 01-11-2025 BAD WORK GATHERER Susan Urena -Laboratory Work Phone: Start: 01-11-2025 End: 01-11-2025 BAD WORK GATHERER Susan Urena -[facility] Work Phone: Start: 01-11-2025 End: 01-11-2025 ambulatory Mehnaz Laughlin MD Work Phone: -[facility] Start: 01-11-2025 End: 01-11-2025 ambulatory Susan Urena Facility:[facility] Start: 12-28-2024 ambulatory Herminio Magana Facility:[facility] Start: 12-28-2024 Dr. Herminio Magana DO -[facility] Start: 12-27-2024 End: 12-27-2024 ambulatory Mehnaz Laughlin MD Work Phone: -Pulmonary Services/Neurology Start: 12-27-2024 End: 12-27-2024 Dr. Herminio Magana DO -Pulmonary Services/Neurology Work Phone: Start: 12-27-2024 End: 12-27-2024 ambulatory [facility] Facility:[facility] Start: 12-18-2024 End: 12-18-2024 ambulatory Mehnaz Laughlin MD Work Phone: -Pulmonary Services/Neurology Start: 12-18-2024 End: 12-18-2024 Dr. Herminio Magana DO -Pulmonary Services/Neurology Work Phone: Start: 12-17-2024 End: 12-18-2024 ambulatory Mehnaz Laughlin MD Work Phone: -[facility] Start: 12-17-2024 End: 12-17-2024 Dr. Cr Ho MD -[facility] Work Phone: Start: 2024 End: 2024 ambulatory Mehnaz Laughlin MD Work Phone: -Laboratory Start: 2024 End: 2024 Dr. Herminio Magana DO -Laboratory Work Phone: Start: 2024 End: 2024 Dr. Herminio Magana DO -[facility] Work Phone: Start: 2024 End: 2024 ambulatory Mehnaz Laughlin MD Work Phone: -[facility] Start: 2024 End: 2024 ambulatory Herminio Magana Facility:[facility] Start: 12-06-2024 End: 12-06-2024 Mehnaz Laughlin MD Work Phone: -Emergency Department Work Phone: Start: 12-06-2024 End: 12-06-2024 Emergency department patient visit Mehnaz Laughlin MD Work Phone: -Emergency Department Start: 12-04-2024 Dr. Berenice del real MD -[place] Work Phone: Start: 12-01-2024 Dr. Aidan tan DO -[facility] Work Phone: Start: 12-01-2024 ambulatory [facility] Start: 12-01-2024 Dr. Estrellita Alarcon MD -[facility] Start: 11-30-2024 End: 12-01-2024 [facility] Start: 11-30-2024 End: 12-01-2024 observation encounter Mehnaz Laughlin MD Work Phone: -Progressive Care Unit Start: 11-30-2024 End: 12-01-2024 Dr. Suma Mathew MD -[facility] Work Phone: Start: 11-07-2024 End: 11-07-2024 Patient encounter procedure Mike MARSHALLC -[facility] Work Phone: Start: 11-07-2024 End: 11-07-2024 Mike MARSHALLC -[facility] Work Phone: Start: 11-07-2024 End: 11-07-2024 ambulatory Mehnaz Laughlin MD Work Phone: [facility] Work Phone: Start: 10-17-2024 End: 10-17-2024 ambulatory Mehnaz Lauglhin MD Work Phone: [facility] Work Phone: Start: 10-17-2024 End: 10-17-[address] Cr Ho MD -[facility] Work Phone: Start: 10-17-2024 End: 10-17-2024 Dr. Cr Ho MD -[facility] Work Phone: Start: 10-15-2024 End: [...] 09-25-2024 ambulatory Mehnaz Laughlin MD Work Phone: [facility] Work Phone: Start: 09-24-2024 End: 09-24-2024 Patient encounter procedure Mike Tom BAD WORK GATHERER-C -Ultrasound, [facility] Work Phone: Start: 09-24-2024 End: 09-24-2024 Mike Tom BAD WORK GATHERER-C -Ultrasound [facility] Work Phone: Start: 09-24-2024 End: 09-24-2024 ambulatory [facility] Facility:[facility] Start: 09-12-2024 End: 09-12-2024 Patient encounter procedure Mike Tom BAD WORK GATHERER-C -[facility] Work Phone: Start: 09-12-2024 End: 09-12-2024 Mike Tom BAD WORK GATHERER-C -[facility] Work Phone: Start: 09-12-2024 End: 09-12-2024 ambulatory Margo Malys Facility:[facility] Start: 09-11-2024 End: 09-11-2024 ambulatory Mehnaz Laughlin MD Work Phone: [facility] Work Phone: Start: 09-11-2024 End: 09-11-[address] Cr Ho MD -[facility] Work Phone: Start: 09-11-2024 End: 09-11-2024 Dr. Cr Ho MD -[facility] Work Phone: Start: 09-11-2024 Non-patient / Non-visit Dr. Damaris Thibodeaux DO -[facility] Work Phone: Start: 09-11-2024 Dr. Damaris Nielson [facility] In[facility] Work Phone: Start: 09-10-2024 Non-patient / Non-visit Dr. Larry MASON [facility] Work Phone: Start: 09-10-2024 Dr. Jamie Manrique DO [facility] Work Phone: Start: 09-09-2024 ambulatory Margo Malys [facility] Start: 09-09-2024 End: 09-11-2024 Evaluation and management of inpatient Dr. Damaris Thibodeaux DO -Progressive Care Unit Work Phone: Start: 09-09-2024 End: 09-11-2024 Dr. Damaris Thibodeaux DO [facility] Work Phone: Start: 09-09-2024 Evaluation and management of inpatient Dr. Francine Steele MD -Progressive Care Unit Work Phone: Start: 09-09-2024 Non-patient / Non-visit Dr. Amara Steele MD [facility] Work Phone: Start: 09-09-2024 Dr. Francine zabala MD [facility] Work Phone: Start: 09-09-2024 ambulatory Carlos Reodica [facility] Start: 09-05-2024 End: 09-05-2024 ambulatory Margo Malys [facility] Start: 09-05-2024 End: 09-05-[address] Cr Ho MD -[facility] Work Phone: Start: 09-05-2024 End: 09-05-2024 Dr. Cr [facility] Work Phone: Start: 08-29-2024 End: 08-29-2024 ambulatory Mehnaz Laughlin MD Work Phone: [facility] Work Phone: Start: 08-29-2024 End: 08-29-[address] Cr Ho MD -[facility] Work Phone: Start: 08-29-2024 End: 08-29-2024 Dr. 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 Cr Ho MD -[facility] Work Phone: Start: 05-30-2024 End: 05-30-2024 Emergency department patient visit Dr. Miguel Conroy -Emergency Department Work Phone: Start: 04-04-2024 End: 04-04-2024 [facility] Start: 09-09-2023 Dr. Margo Tatum Work Phone: [facility] Work Phone: Start: 09-08-2023 Dr. Margo Tatum Work Phone: [facility] Work Phone: Start: 09-07-2023 Dr. Margo Tatum Work Phone: [facility] Work Phone: Start: 09-06-2023 Non-patient / Non-visit Dr. Annabella Tatum Work Phone: [facility] Work Phone: Start: 09-06-2023 End: 09-10-2023 Evaluation and management of inpatient Dr. Margo Tatum Work Phone: [facility] Work Phone: Start: 09-06-2023 End: 09-10-2023 Dr. Margo Tatum Work Phone: [facility] Work Phone: Start: 08-29-2023 Non-patient / Non-visit Dr. Annabella Tatum Work Phone: [facility] Work Phone: Start: 08-29-2023 Dr. Margo Tatum Work Phone: [facility] Work Phone: Start: 08-28-2023 Non-patient / Non-visit Dr. Annabella Tatum Work Phone: [facility] Work Phone: Start: 08-28-2023 Dr. Margo Tatum Work Phone: [facility] Work Phone: Start: 08-27-2023 Non-patient / Non-visit Dr. Annabella Tatum Work Phone: [facility] Work Phone: Start: 08-27-2023 Dr. Margo Tatum Work Phone: [facility] Work Phone: Start: 08-26-2023 End: 08-29-2023 Evaluation and management of inpatient Dr. Margo Tatum Work Phone: [facility] Work Phone: Start: 08-26-2023 End: 08-29-2023 Dr. Margo Tatum Work Phone: [facility] Work Phone: Start: 08-11-2023 End: 08-11-[address] Margo Tatum Work Phone: [facility] Work Phone: Start: 08-11-2023 End: 08-11-[address] Margo Tatum Work Phone: [facility] Endocrinology Work Phone: Start: 08-11-2023 End: 08-11-2023 Dr. Margo Tatum Work Phone: [facility] Endocr[facility] Work Phone: Start: 08-02-2023 End: 08-02-2023 Emergency department patient visit Dr. Margo Tatum Work Phone: [facility]-Emergency Department Work Phone: Start: 08-02-2023 End: 08-02-2023 Dr. Margo Tatum Work Phone: [facility]-Emergency Department Work Phone: Start: 07-25-2023 End: 07-25-[address] Margo Tatum Work Phone: [facility] Work Phone: Start: 07-25-2023 End: 07-25-2023 Dr. Margo Tatum Work Phone: [facility] Work Phone: Start: 07-15-2023 End: 07-15-[address] Margo Tatum Work Phone: [facility] Work Phone: Start: 07-15-2023 End: 07-15-[address] Margo aTtum Work Phone: [facility], [facility] Work Phone: Start: 07-15-2023 End: 07-15-2023 Dr. Margo Tatum Work Phone: [facility]-Radiology, [facility] Work Phone: Start: 06-24-2023 End: 06-24-[address] Margo Tatum Work Phone: [facility] Work Phone: Start: 06-24-2023 End: 06-24-2023 Dr. Margo Tatum Work Phone: [facility] Work Phone: Start: 06-24-2023 End: 06-24-[address] Margo Tatum Work Phone: [facility] Work Phone: Start: 06-24-2023 End: 06-24-2023 Dr. Margo Tatum Work Phone: [facility] Work Phone: Start: 06-13-2023 End: 06-13-[address] Margo Tatum Work Phone: [facility] Work Phone: Start: 06-13-2023 End: 06-13-2023 Dr. Margo Tatum Work Phone: [facility] Work Phone: Start: 05-19-2023 End: 05-19-[address] Margo Tatum Work Phone: [facility] Work Phone: Start: 05-19-2023 End: 05-19-[address] Margo Tatum Work Phone: [facility], [facility] Work Phone: Start: 05-19-2023 End: 05-19-2023 Dr. Margo Tatum Work Phone: [facility] [facility], [facility] Work Phone: Start: 05-18-2023 End: 05-18-2023 Emergency department patient visit Dr. Margo Tatum Work Phone: [facility]-Emergency Department Work Phone: Start: 05-18-2023 End: 05-18-2023 Dr. Margo Tatum Work Phone: [facility]-Emergency Department Work Phone: Start: 05-11-2023 End: 05-11-[address] Margo Tatum Work Phone: [facility] Endocrinology Work Phone: Start: 04-29-2023 End: 04-29-[address] Margo Tatum Work Phone: [facility] Work Phone: Start: 03-08-2023 End: 03-08-[address] Margo Tatum Work Phone: [facility] Work Phone: Start: 01-26-2023 End: 01-26-[address] Margo Tatum Work Phone: [facility] Endocrinology Work Phone: Start: 12-20-[address] Margo Tatum Work Phone: [facility]-Laboratory Work Phone: Start: 12-16-2022 Non-patient / Non-visit Dr. Annabella Tatum Work Phone: [facility] Work Phone: Start: 12-16-2022 Non-patient / Non-visit Dr. Annabella Tatum Work Phone: [facility] Start: 12-16-2022 End: 12-16-[address] Margo Tatum Work Phone: [facility] Work Phone: Start: 12-16-2022 End: 12-16-[address] Margo Tatum Work Phone: [facility] Work Phone: Start: 10-20-2022 End: 10-20-[address] Margo Tatum Work Phone: [facility] Work Phone: Start: 10-18-2022 End: 10-18-2022 Emergency department patient visit Dr. Margo Tatum Work Phone: [facility]-Emergency Department Start: 10-07-2022 End: 10-07-2022 Emergency department patient visit Dr. Margo Tatum Work Phone: [facility]-Emergency Department Start: 10-07-2022 End: 10-07-[address] Margo Tatum Work Phone: [facility] Work Phone: Start: 10-07-2022 End: 10-07-[address] Margo Tatum Work Phone: [facility]-Outpatient Bone Densitometry Start: 10-04-2022 ambulatory MARGO TATUM Facility:[facility] Start: 10-01-2022 End: 10-01-[address] Margo Tatum Work Phone: [facility] Work Phone: Start: 10-01-2022 End: 10-01-[address] Margo Tatum Work Phone: [facility]-Laboratory Start: 09-23-2022 End: 09-23-[address] Margo Tatum Work Phone: [facility] Endocrinology Start: 09-20-2022 End: 09-20-2022 [facility] Start: 09-20-2022 End: 09-20-2022 Emergency department patient visit Rupali Shaw MD, PhD Work Phone: [facility] Emergency Department Start: 09-20-2022 ambulatory [facility] y:[facility] Start: 09-14-2022 End: 09-14-[address] Margo Tatum Work Phone: [facility] Start: 09-06-2022 End: 09-06-2022 Emergency department patient visit Dr. Margo Tatum Work Phone: [facility]-Emergency Department Start: 09-02-2022 Non-patient / Non-visit Dr. Annabella Tatum Work Phone: [facility] Start: 09-02-2022 End: 09-02-2022 Emergency department patient visit Dr. Margo Tatum Work Phone: [facility]-Emergency Department Start: 08-26-2022 End: 08-26-[address] Margo Tatum Work Phone: [facility] Start: 08-18-2022 End: 08-18-2022 [facility] Start: 08-18-2022 End: 08-18-2022 Subsequent hospital visit by physician Serafin Padron MD Work Phone: Cardiology Invasive Prep and Recovery Comment on above: Other cardiomyopathy Start: 08-07-2022 Non-patient / Non-visit Dr. Annabella Tatum Work Phone: [facility] Start: 08-07-2022 Non-patient / Non-visit Dr. Annabella Tatum Work Phone: [facility] Start: 08-06-2022 End: 08-06-2022 Non-patient / Non-visit Dr. Margo Tatum Work Phone: [facility] Start: 08-06-2022 Non-patient / Non-visit Dr. Annabella Tatum Work Phone: [facility] Start: 08-06-2022 End: 08-07-2022 Evaluation and management of inpatient Dr. Margo Tatum Work Phone: [facility]-Progressive Care Unit Start: 08-06-2022 End: 08-07-[address] Margo Tatum Work Phone: [facility] Work Phone: Start: 07-30-2022 End: 07-30-[address] Margo Ttaum Work Phone: [facility] Work Phone: Start: 07-30-2022 End: 07-30-[address] Margo Tatum Work Phone: [facility]-Laboratory Start: 07-20-2022 ambulatory MARGO TATUM Facility:[facility] Start: 06-30-2022 End: 06-30-2022 Emergency department patient visit Dr. Margo Tatum Work Phone: [facility]-Emergency Department Start: 06-09-2022 End: 06-09-[address] Margo Tatum Work Phone: [facility] Endocrinology Start: 06-03-2022 End: 06-03-[address] Margo Tatum Work Phone: [facility] Work Phone: Start: 06-03-2022 End: 06-03-[address] Margo Tatum Work Phone: [facility] Start: 05-25-2022 End: 05-25-[address] Margo Tatum Work Phone: [facility] Work Phone: Start: 05-25-2022 End: 05-25-[address] Margo Tatum Work Phone: [facility] Start: 05-19-2022 End: 05-19-[address] Margo Tatum Work Phone: [facility] Work Phone: Start: 05-19-2022 End: 05-19-[address] Margo Tatum Work Phone: [facility] Start: 05-19-2022 End: 05-19-[address] Margo Tatum Work Phone: [facility] Start: 05-18-2022 End: 05-18-[address] Margo Tatum Work Phone: [facility] Start: 05-18-2022 End: 05-18-[address] Margo Tatum Work Phone: [facility] Start: 05-08-2022 End: 05-08-2022 Emergency department patient visit Dr. Margo Tatum Work Phone: [facility]-Emergency Department Start: 05-06-2022 End: 05-06-[address] Margo Tatum Work Phone: [facility] Start: 05-06-2022 End: 05-06-[address] Margo Tatum Work Phone: [facility] Endocrinology Start: 05-06-2022 ambulatory [facility] Facility:[facility] Start: 04-22-2022 Non-patient / Non-visit Dr. Annabella Tatum Work Phone: [facility] Start: 04-22-2022 End: 04-22-[address] Margo Tatum Work Phone: [facility] Work Phone: Start: 04-22-2022 End: 04-22-[address] Margo Tatum Work Phone: [facility]-Cardiovascular Services Start: 04-13-2022 End: 04-13-[address] Margo Tatum Work Phone: [facility] Work Phone: Start: 04-13-2022 End: 04-13-[address] Margo Tatum Work Phone: [facility]-Laboratory Start: 04-13-2022 End: 04-13-[address] Margo Tatum Work Phone: [facility] Start: 04-12-2022 End: 04-12-[address] Margo Tatum Work Phone: [facility] Work Phone: Start: 04-12-2022 End: 04-12-[address] Margo Tatum Work Phone: [facility] Start: 04-05-2022 End: 04-05-2022 Emergency department patient visit Dr. Margo Tatum Work Phone: [facility]-Emergency Department Start: 03-09-2022 Non-patient / Non-visit Dr. Annabella Tatum Work Phone: [facility] Start: 03-09-2022 End: 03-09-[address] Margo Tatum Work Phone: [facility] Work Phone: Start: 03-09-2022 End: 03-09-[address] Margo Tatum Work Phone: [facility] Start: 02-24-2022 End: 02-24-[address] Margo Tatum Work Phone: [facility] Work Phone: Start: 02-24-2022 End: 02-24-[address] Margo Tatum Work Phone: [facility] Start: 02-24-2022 End: 02-24-[address] Margo Tatum Work Phone: [facility] Start: 02-09-2022 End: 02-09-[address] Margo Tatum Work Phone: [facility] Gastroenterology Start: 01-24-2022 End: 01-25-2022 Emergency department patient visit Dr. Margo Tatum Work Phone: [facility]-Emergency Department Start: 01-17-[address] Margo knight Work Phone: [facility] Start: 01-17-2022 Non-patient / Non-visit Dr. Annabella Tatum Work Phone: [facility] Start: 01-12-2022 End: 01-12-[address] Margo Tatum Work Phone: [facility] Start: 12-29-2021 End: 12-29-[address] Margo Tatum Work Phone: [facility] Gastroenterology Start: 11-17-2021 End: 11-17-2021 Emergency department patient visit Dr. Margo Tatum Work Phone: [facility]-Emergency Department Start: 11-06-2021 End: 11-06-2021 Emergency department patient visit Dr. Margo Tatum Work Phone: [facility] Start: 10-27-2021 End: 10-27-[address] Margo Tatum Work Phone: [facility]-Laboratory Start: 10-15-2021 End: 10-15-[address] Margo Tatum Work Phone: [facility] Start: 09-20-2021 End: 09-20-2021 Emergency department patient visit Dr. Margo Tatum Work Phone: [facility] Start: 09-16-2021 End: 09-16-2021 Emergency department patient visit Dr. Margo Tatum Work Phone: [facility] Start: 09-14-2021 Non-patient / Non-visit Dr. Annabella Tatum Work Phone: [facility] Start: 09-14-2021 Non-patient / Non-visit Dr. Annabella Tatum Work Phone: [facility] Start: 09-13-2021 Non-patient / Non-visit Dr. Annabella Tatum Work Phone: [facility] Start: 09-13-2021 Non-patient / Non-visit Dr. Annabella Tatum Work Phone: [facility] Start: 09-12-2021 Non-patient / Non-visit Dr. Annabella Tatum Work Phone: [facility] Start: 09-12-2021 Non-patient / Non-visit Dr. Annabella Tatum Work Phone: [facility] Start: 09-12-2021 Non-patient / Non-visit Dr. Annabella Tatum Work Phone: [facility] Start: 09-11-2021 Non-patient / Non-visit Dr. Annabella Tatum Work Phone: [facility] Start: 09-11-2021 Non-patient / Non-visit Dr. Annabella Tatum Work Phone: [facility] Start: 09-11-2021 Non-patient / Non-visit Dr. Annabella Tatum Work Phone: [facility] Start: 09-10-2021 Non-patient / Non-visit Dr. Annabella Tatum Work Phone: [facility] Start: 09-10-2021 Non-patient / Non-visit Dr. Annabella Tatum Work Phone: [facility] Start: 09-10-2021 Non-patient / Non-visit Dr. Annabella Tatum Work Phone: [facility] Start: 09-09-2021 Non-patient / Non-visit Dr. Annabella Tatum Work Phone: [facility] Start: 09-09-2021 Non-patient / Non-visit Dr. Annabella Tatum Work Phone: [facility] Start: 09-08-2021 End: 09-14-2021 Evaluation and management of inpatient Dr. Margo Tatum Work Phone: [facility]-Intensive Care Unit Start: 09-08-2021 Non-patient / Non-visit Dr. Annabella Tatum Work Phone: [facility] Start: 07-30-2021 End: 07-30-[address] Margo Tatum [facility] Start: 07-19-2021 Non-patient / Non-visit Dr. Annabella Tatum Work Phone: [facility] Start: 07-18-2021 Non-patient / Non-visit Dr. Annabella Tatum Work Phone: [facility] Start: 07-17-2021 Non-patient / Non-visit Dr. Annabella Tatum Work Phone: [facility] Start: 07-17-2021 End: 07-19-2021 Evaluation and management of inpatient Dr. Margo Tatum Work Phone: [facility]-Progressive Care Unit Start: 07-08-2021 End: 08-03-[address] Margo Tatum Work Phone: [facility]-Cardiac Rehab Start: 07-07-2021 End: 07-07-[address] Margo Tatum [facility] Phone: [facility] Start: 07-06-2021 End: 07-06-[address] Margo Tatum Work Phone: [facility] Start: 06-16-2021 End: 06-16-[address] Margo Tatum Work Phone: [facility]-Ultrasound, [facility] Start: 06-09-2021 End: 06-09-[address] Margo Tatum Work Phone: [facility]-Cardiac Rehab Start: 06-08-2021 End: 06-08-[address] Margo Tatum Work Phone: [facility] Start: 06-07-2021 End: 06-07-2021 Emergency department patient visit Dr. Margo Tatum Work Phone: [facility]-Emergency Department Start: 06-04-2021 End: 06-04-2021 Emergency department patient visit Dr. Margo Tatum Work Phone: [facility]-Emergency Department Start: 05-25-2021 Non-patient / Non-visit Dr. Annabella Tatum Work Phone: [facility] Start: 05-25-2021 Non-patient / Non-visit Dr. Annabella Tatum Work Phone: [facility] Start: 05-24-2021 Non-patient / Non-visit Dr. Annabella Tatum Work Phone: [facility] Start: 05-23-2021 Non-patient / Non-visit Dr. Annaeblla Tatum Work Phone: [facility] Start: 05-22-2021 End: 05-25-2021 Evaluation and management of inpatient Dr. Margo Tatum [facility] Phone[facility] Start: 05-22-2021 Non-patient / Non-visit Dr. Annabella Tatum Work Phone: [facility] Start: 05-20-2021 Non-patient / Non-visit Dr. Annabella Tatum Work Phone: [facility] Start: 05-19-2021 Non-patient / Non-visit Dr. Annabella Tatum Work Phone: [facility] Start: 05-19-2021 Non-patient / Non-visit Dr. Annabella Tatum Work Phone: [facility] Start: 05-18-2021 End: 05-20-2021 Evaluation and management of inpatient Dr. Margo Tatum [facility] Phone[facility] Start: 05-18-2021 Non-patient / Non-visit Dr. Annabella Tatum Work Phone: [facility] Start: 11-12-2011 Evaluation and management of inpatient Dr. Margo Tatum Work Phone: [facility]- Start: 11-12-2011 Dr. Margo Tatum Work Phone: [facility]- Procedures Date Procedure Procedure Detail [...] Mehnaz Laughlin MD Work Phone: Start: 01-11-2025 Neutrophil count Mehnaz Laughlin MD Work Phone: Start: [...] Mehnaz Laughlin MD Work Phone: Start: 12-06-2024 Neutrophil count Mehnaz Laughlin MD Work Phone: Start: [...] Work Phone: Comment on above: Test Ordered: [id number] I66-Wuvhff+S O9Ctzwwlsobtmp Screen, Urine Negative ng/mL UI Reference Range: Jcjycs=608Kppexwwwlmx test includes Amphetamine and Methamphetamine.Barbiturates Negative ng/mL UI Reference Range: Iwlkxu=236Fgphzwxnghbztul Negative ng/mL UI Reference Range: Lfsqni=954Fcudujv (Metab.), Urine Negative ng/mL UI Reference Range: Jzavpx=109Cnecqfj Note: ng/mL UI See Final Results Reference Range: Vdpvrj=186Miroqe test includes Codeine, Morphine, Hydromorphone, Hydrocodone.Opiates Positive [A ] UI Reference Range: Fdlbsf=285Tqigga test includes Codeine, Morphine, Hydromorphone, Hydrocodone.Codeine Negative UI Reference Range: Sahzzk=164Uwpsaodu Negative UI Reference Range: Lxsbbo=831Vdibimsqgpksh Positive [A ] UI Reference Range: .Hydromorphone Conf, MS, UR 108 ng/mL UI Reference Range: Lhyqqu=986Mggkmgqiqcw Positive [A ] UI Reference Range: .Hydrocodone Conf, MS, UR 553 ng/mL UI Reference Range: Smnrgp=0544-Ebisxwttnunaic, Urine Negative ng/mL UI Reference Range: Cutoff=10Oxycodone/Oxymorphone, Urine Negative ng/mL UI Reference Range: Qfhjqs=751Mvtu includes Oxycodone and OxymorphonePCP, Urine Negative ng/mL UI Reference Range: Cutoff=25Methadone Screen, Urine Negative ng/mL UI Reference Range: Edicqb=653Zlxbthulcbhp, Urine Negative ng/mL UI Reference Range: Yliiso=945Uslreffv, Urine Negative ng/mL UI Reference Range: Cutoff=2.0Test includes Fentanyl and NorfentanylThis test was developed and its performance characteristicsdetermined by [facility]. It has not been cleared orapproved by the Food and Drug Administration.Tramadol Negative ng/mL UI Reference Range: Aooanp=048Avvcxbjhjcsxf, Urine Negative ng/mL UI Reference Range: Cutoff=10Creatinine, Urine 74.4 mg/dL UI Reference Range: 20.0-300.0pH, Urine 5.4 UI Reference Range: 4.5-8.9Performed at: - [facility] [id number] [place], [place] [id number] Director: Rand Jaquez PhD, Phone: [phone] at: - [facility] [address] [id number] Director: Vargas Kim PhD, Phone: [phone] Start: 09-25-2024 Urine cannabinoid measurement Mehnaz dallas [...] Phone: Start: 08-18-2022 Glucose measurement, blood Serafin Pdaron MD Work Phone: Start: 08-18-2022 CBC AND ELECTRONIC DIFF Madhuri russell SECURITY SERVICES MANAGER-AUTOMATIC CENTRIFUGAL STATION OPERATOR Work Phone: Start: 08-18-2022 Complete blood count with white cell differential, automated Madhuri Cruz SECURITY SERVICES MANAGER-AUTOMATIC CENTRIFUGAL STATION OPERATOR Work Phone: Start: 08-18-2022 Creatinine blood Madhuri Cruz SECURITY SERVICES MANAGER-AUTOMATIC CENTRIFUGAL STATION OPERATOR Work Phone: Start: 08-07-2022 Cardiovascular stress test [...] Detail Author Start: 03-25-2026 Tetanus vaccination TET[facility] Start: 06-12-2025 ambulatory Facility:[facility] Start: 03-26-2025 -Sleep Lab Work Phone: Start: 01-11-2025 [facility] Start: 01-11-2025 [facility] Start: 12-27-2024 Walking distance 6 minutes [facility] Start: 12-18-2024 Measurement of respiratory function [facility] Start: 12-06-2024 [facility] Start: 12-06-2024 [facility] Start: 12-01-2024 Patient discharge [facility] Start: 11-30-2024 End: 11-30-2024 [facility] Start: 11-30-2024 Following clinical pathway protocol [facility] Start: 11-30-2024 Assessment of risk of venous thromboembolism [facility] Start: 11-30-2024 Care regimes management [facility] Start: 11-30-2024 Elevation of affected extremity [facility] Start: 11-30-2024 Incentive spirometry [facility] Start: 11-30-2024 Inhalation therapy procedure [facility] Start: 11-30-2024 Insertion of catheter into peripheral vein [facility] Start: 11-30-2024 Measuring intake and output [facility] Start: 11-30-2024 Notification of physician [facility] Start: 11-30-2024 Patient education [facility] Start: 11-30-2024 Providing care according to standard [facility] Start: 11-30-2024 Provision of activity privileges [facility] Start: 11-30-2024 Admission procedure [facility] Start: 11-30-2024 Hospital admission, emergency, from emergency room, medical nature [facility] Start: 11-30-2024 End: 11-30-2024 [facility] Start: 11-30-2024 Administration of intravenous fluids [facility] Start: 11-30-2024 Iv infusion hydration initial 31 min-1 hour [facility] Start: 11-07-2024 T4 free measurement [facility] Start: 11-07-2024 Thyroid stimulating hormone measurement [facility] Start: 11-07-2024 Triiodothyronine, free measurement [facility] Start: 11-07-2024 Urine microalbumin/creatinine ratio measurement [facility] Start: 11-07-2024 Vitamin D, 25-hydroxy measurement [facility] Start: 10-15-2024 [facility] Start: 10-15-2024 End: 10-15-2024 [facility] Start: 09-25-2024 Procedure [facility] Start: 09-11-2024 Patient discharge [facility] Start: 09-10-2024 [facility] Start: 09-10-2024 [facility] Start: 09-09-2024 Following clinical pathway protocol [facility] Start: 09-09-2024 Assessment of risk of venous thromboembolism [facility] Start: 09-09-2024 Care regimes management [facility] Start: 09-09-2024 Insertion of catheter into peripheral vein [facility] Start: 09-09-2024 Measuring intake and output [facility] Start: 09-09-2024 Notification of physician [facility] Start: 09-09-2024 Oxygen therapy [facility] Start: 09-09-2024 Providing care according to standard [facility] Start: 09-09-2024 Provision of activity privileges [facility] Start: 09-09-2024 Referral to occupational therapist [facility] Start: 09-09-2024 Referral to service [facility] Start: 09-09-2024 End: 09-09-2024 [facility] Start: 09-09-2024 Verification routine [facility] Start: 09-09-2024 Admission procedure [facility] Start: 09-09-2024 Hospital admission, emergency, from emergency room, medical nature [facility] Start: 09-09-2024 [facility] Start: 09-09-2024 [facility] Start: 09-09-2024 Inhalation therapy procedure [facility] Start: 05-30-2024 [facility] Start: 09-21-2023 Potassium [Moles/volume] in Serum or Plasma POTASSIUM U [facility] Start: 09-10-2023 Patient discharge [facility] Start: 09-06-2023 Application of intermittent pneumatic compression device [facility] Start: 09-06-2023 Following clinical pathway protocol [facility] Start: 09-06-2023 Ambulation without limitation [facility] Start: 09-06-2023 Assessment of risk of venous thromboembolism [facility] Start: 09-06-2023 Care regimes management [facility] Start: 09-06-2023 Consultation [facility] Start: 09-06-2023 Documentation procedure [facility] Start: 09-06-2023 Insertion of catheter into peripheral vein [facility] Start: 09-06-2023 Measuring intake and output [facility] Start: 09-06-2023 Notification of physician [facility] Start: 09-06-2023 Providing care according to standard [facility] Start: 09-06-2023 [facility] Start: 09-06-2023 Verification routine [facility] Start: 09-06-2023 Admission procedure [facility] Start: 09-06-2023 Hospital admission, emergency, from emergency room, medical nature [facility] Start: 09-06-2023 Bacteria identified in Urine by Culture [facility] Start: 09-06-2023 [facility] Start: 09-06-2023 Prothrombin time [facility] Start: 09-06-2023 Consultation [facility] Start: 08-29-2023 Patient discharge [facility] Start: 08-28-2023 Application of intermittent pneumatic compression device [facility] Start: 08-28-2023 Removal of urinary catheter [facility] Start: 08-27-2023 Irrigation of urinary bladder [facility] Start: 08-26-2023 Following clinical pathway protocol [facility] Start: 08-26-2023 Assessment of risk of venous thromboembolism [facility] Start: 08-26-2023 Care regimes management [facility] Start: 08-26-2023 Consultation [facility] Start: 08-26-2023 Incentive spirometry [facility] Start: 08-26-2023 Inhalation therapy procedure [facility] Start: 08-26-2023 Insertion of catheter into peripheral vein [facility] Start: 08-26-2023 Introduction of urinary catheter [facility] Start: 08-26-2023 Irrigation of urinary bladder [facility] Start: 08-26-2023 Measuring intake and output [facility] Start: 08-26-2023 Notification of physician [facility] Start: 08-26-2023 Providing care according to standard [facility] Start: 08-26-2023 Provision of activity privileges [facility] Start: 08-26-2023 Referral to service [facility] Start: 08-26-2023 [facility] Start: 08-26-2023 Hospital admission, emergency, from emergency room, medical nature [facility] Start: 08-26-2023 Verification routine [facility] Start: 08-26-2023 Admission procedure [facility] Start: 08-26-2023 End: 08-27-2023 [facility] Start: 08-26-2023 Bacteria identified in Urine by Culture [facility] Start: 08-26-2023 Urine culture Urine Culture [facility] Start: 08-02-2023 [facility] Start: 08-02-2023 End: 08-02-2023 [facility] Start: 06-24-2023 Patient referral [facility] Work Phone: Start: 05-18-2023 [facility] Start: 02-04-2023 Influenza vaccination INFLUENZA VACCINE (Season Ended) [facility] Start: 12-20-2022 Procedure [facility] Start: 10-07-2022 Dual energy X-ray absorptiometry Dexa Bone Density Study [facility] Start: 10-07-2022 DXA Bone [Mass/Area] Bone density [facility] Start: 09-20-2022 End: 09-20-2022 Patient encounter procedure 09/20/2022 Office Visit Cardiovascular Medicine Lizbeth Cesar MD [address] [place] [id number] [facility] Start: 08-07-2022 Patient discharge [facility] Start: 08-07-2022 Blood chemistry [facility] Start: 08-07-2022 Cardiovascular stress test using pharmacologic stress agent Nuclear Stress Test - Chemical [facility] Start: 08-07-2022 Verification routine [facility] Start: 08-07-2022 Care regimes management [facility] Start: 08-07-2022 Notification of physician [facility] Start: 08-07-2022 [facility] Start: 08-06-2022 Following clinical pathway protocol [facility] Start: 08-06-2022 Assessment of risk of venous thromboembolism [facility] Start: 08-06-2022 Insertion of catheter into peripheral vein [facility] Start: 08-06-2022 Measuring intake and output [facility] Start: 08-06-2022 Oxygen therapy [facility] Start: 08-06-2022 Providing care according to standard [facility] Start: 08-06-2022 Tobacco use cessation education [facility] Start: 08-06-2022 [facility] Start: 08-06-2022 Electrocardiographic procedure [facility] Start: 08-06-2022 Verification routine [facility] Start: 08-06-2022 Admission procedure [facility] Start: 04-05-2022 [facility] Start: 02-04-2022 Influenza vaccination INFLUENZA VACCINE (#1) [facility] Start: 01-24-2022 [facility] Work Phone: Start: 11-17-2021 Plain X-ray of shoulder Shoulder min 2 Views [facility] Work Phone: Start: 11-17-2021 X-ray of lumbar spine, two or three views Lumbar Spine 2 or 3 Views [facility] Work Phone: Start: 11-06-2021 [facility] Work Phone: Start: 09-08-2021 Bacteria identified in Blood by Culture Blood Culture [facility] Work Phone: Start: 09-08-2021 Microscopic observation [Identifier] in Unspecified specimen by Gram stain Gram Stain [facility] Work Phone: Start: 09-08-2021 Respiratory Culture Respiratory Culture [facility] Work Phone: Start: 12-12-2019 Zoster vaccine hzv live for subcutaneous use ZOSTER (SHINGLES) VACCINE (1 of 2) [facility] Start: 2014 Screening for malignant neoplasm of colon COLORECTAL CANCER SCREENING DISCUSSION [facility] Start: 2009 Lipid panel LIPID SCREENING [facility] Start: 2009 Screening for malignant neoplasm of breast MAMMOGRAM SCREENING DISCUSSION [facility] Start: 1990 Screening for malignant neoplasm of cervix CERVICAL CANCER SCREENING DISCUSSION [facility] Start: 1984 HIV screening HIV SCREENING DISCUSSION [facility] Start: 06-13-1970 COVID-19 VACCINE (#1) COVID-19 VACCINE (#1) [facility] Start: 1969 Hepatitis C screening HEPATITIS C VIRUS SCREENING [facility] Anion gap measurement [facility] Bacteria identified in Blood by Culture [facility] Bilirubin measurement, urine [facility] BUN/Creatinine ratio [facility] Calcium [Mass/volume ] in Serum or Plasma [facility] Carbon dioxide, tota l [Moles/volume] in Serum or Plasma [facility] Chloride [Moles/volu me] in Serum or Plasma [facility] Cholesterol [Mass/vo lume] in Serum or Plasma [facility] Cholesterol in HDL [Mass/volume] in Serum or Plasma [facility] Cholesterol in LDL [Mass/volume] in Serum or Plasma [facility] Comprehensive metabo lic 2000 panel - Serum or Plasma [facility] Creatinine [Moles/vo lume] in Serum or Plasma [facility] CT Chest WO contrast [facility] DXA Bone [Mass/Area] Bone density [facility] Glucose [Mass/volume ] in Serum or Plasma [facility] Hemoglobin [Presence ] in Urine [facility] INR in Blood by Coag ulation assay [facility] End: 08-18-2022 Interrogation of cardiac pacemaker PACEMAKER/ICD INTERROGATION Cardiac Services Routine One Time for 1 Occurrences starting 08/18/2022 until 08/18/2022 [facility] Work Phone: Comment on above: One Time for 1 Occurrences starting 08/04 until 08/18/2022 LAVENDER TOP TUBE LAVENDER TOP T UBE Lab STAT 09/20/2022 3:23 PM EDT [facility] Lipid 1996 panel - S kobi or Plasma [facility] LT BLUE TOP TUBE LT BLUE TOP TUB E Lab STAT [facility]22 [facility] Measurement of keton es in urine using dipstick [facility] Measurement of renal function [facility] Measurement of respi ratory function [facility] Microscopic urinalysis [facility] Natriuretic peptide. B prohormone N-Terminal [Mass/volume] in Serum or Plasma [facility] Natriuretic peptide. B prohormone N-Terminal [Mass/volume] in Serum or Plasma [facility] Patient Education [facility] Work Phone: Patient referral [facility] Work Phone: pH of Urine [facility] Potassium [Moles/vol ume] in Serum or Plasma [facility] RAINBOW DRAW RAINBOW DRAW Lab STAT 09/20/2022 3:23 PM EDT [facility] Sodium [Moles/volume ] in Serum or Plasma [facility] Specific gravity of Urine [facility] End: 09-20-2022 Standard ECG U [facility] Work Phone: Comment on above: One Time for 1 Occurrences starting 09/04 until 09/20/2022 T4 free measurement [facility] [facility] Thyroid stimulating hormone measurement [facility] Triglycerides measurement [facility] Triiodothyronine, fr ee measurement [facility] Urea nitrogen [Mass/ volume] in Serum or Plasma [facility] Urinalysis, blood, qualitative [facility] Urine culture [facility] Urine dipstick for glucose [facility] Urine dipstick for l eukocyte esterase [facility] Urine dipstick for nitrite [facility] Urine dipstick for protein [facility] Urine examination [facility] Urine microscopy: ep ithelial cells [facility] Urine Microscopy: white cells [facility] Urobilinogen [Presen ce] in Urine [facility] Heart [facility] Heart limited [facility] Work Phone: VLDL cholesterol measurement [facility] Walking distance 6 minutes [facility] Immunizations Immunization Date Immunization Notes Care Provider Fa cility 11-29-2020 Covid (Moderna) Dr. Margo ni Work Phone: [facility] 11-24-2020 Covid (Moderna) Dr. Margo ni Work Phone: [facility] 11-01-2020 Covid (Moderna) Dr. Margo ni Work Phone: [facility] 10-30-2020 Covid (Moderna) Dr. Margo ni Work Phone: [facility] 03-25-2016 tetanus toxoid, redu blake diphtheria toxoid, and acellular pertussis vaccine, adsorbed Dr. Margo Tatum Work Phone: [facility] Payers Date Payer Category Payer Medicare [id number] 2024 Self-pay [id number] 2023 Unknown [id number] 2022 Medicaid [employer] MEDICAID [employer] MEDICAID [id number] 2022-Present [address] [place] [address] [id number]. [id number] 2022 Medicare [employer] MEDICARE RX [employer] MEDICARE RX [id number] 2022-Present [address] [place] [address] [id number].3. [id number] 2022 Unknown [id number] 2016 Unknown [id number] 2011 Unknown [id number] 1969 Unknown [id number] .1.478447.3.579.2.594 1969 Unknown [id number] .1.667131.3.579.2.594 1969 Unknown [id number] .1.823946.3.579.2.594 1969 Unknown [id number] 07.22.830.1.116430.3.579.2.594 1969 Unknown [id number] .1.960987.3.579.2.594 1969 Unknown [id number] .1.640409.3.579.2.594 Medicaid [id number] Unknown [id number] 2.16.840.1.705990.3.579.2.462 Unknown [id number] 2.16.840.1.735558.3.579.2.462 Unknown [id number] 2.16.840.1.299301.3.579.2.462 Unknown [id number] 2.16.840.1.727467.3.579.2.462 Unknown [id number] 2.16840.1.673305.3.579.2.462 Unknown [id number] 2.16.840.1.026680.3.579.2.462 Unknown [id number] 2.16840.1.606908.3.579.2.462 Unknown [id number] 2.840.1.571679.3.579.2.462 Unknown [id number] 2.840.1.488320.3.579.2.462 Unknown [id number] 2.840.1.283069.3.579.2.462 Unknown [id number] 2.840.1.181240.3.579.2.462 Unknown [id number] 2.840.1.526241.3.579.2.462 Unknown [id number] 2.16840.1.179313.3.579.2.462 Unknown [id number] 2.840.1.806829.3.579.2.462 Unknown [id number] 2.16840.1.970975.3.579.2.462 Unknown [id number] 2.16.840.1.018734.3.579.2.462 Unknown [id number] 2.16840.1.585480.3.579.2.462 Unknown [id number] 2.16.840.1.979979.3.579.2.462 Unknown [id number] 2.16840.1.874430.3.579.2.462 Unknown [id number] 2.16.840.1.563631.3.579.2.462 Unknown [id number] 2.16.840.1.877009.3.579.2.462 Unknown [id number] 2.16.840.1.353235.3.579.2.462 Unknown [id number] 2.16.840.1.098888.3.579.2.462 Unknown [id number] 2.16.840.1.015558.3.579.2.462 Unknown [id number] 2.840.1.786023.3.579.2.462 Unknown [id number] 2.840.1.279208.3.579.2.462 Unknown [id number] 2.840.1.230250.3.579.2.462 Unknown [id number] 2.840.1.493333.3.579.2.462 Unknown [id number] 2.840.1.111204.3.579.2.462 Unknown [id number] 2.840.1.477173.3.579.2.462 Unknown [id number] 2.840.1.006333.3.579.2.462 Unknown [id number] 2.840.1.032784.3.579.2.462 Unknown [id number] 2.840.1.016629.3.579.2.462 Unknown [id number] 2.840.1.676902.3.579.2.462 Unknown [id number] 2.840.1.609396.3.579.2.462 Unknown [id number] 2.16840.1.846345.3.579.2.462 Unknown [id number] 2.16840.1.251645.3.579.2.462 Unknown [id number] 2.16.840.1.772362.3.579.2.462 Unknown [id number] 2.16.840.1.456934.3.579.2.462 Unknown [id number] 2.16.840.1.565916.3.579.2.462 Unknown [id number] 2.16.840.1.514693.3.579.2.462 Unknown [id number] 2.16.840.1.592343.3.579.2.462 Unknown [id number] 2.16.840.1.779874.3.579.2.462 Unknown [id number] 2.16.840.1.174296.3.579.2.462 Unknown [id number] 2.16.840.1.508208.3.579.2.462 Social History Date Type Detail Facility Start: 09-08-2021 End: 09-06-2023 Tobacco smoking status NHIS Unknown if ever smoked [facility] Start: 11-25-2020 None [facility] Start: 11-25-2020 Homeless [facility] Start: 11-25-2020 Non-smoker [facility] Start: 1970 Sex Assigned At Female [facility] Start: 12-10-2011 Tobacco smoking stat NHIS Never smoked tobacco [facility] Start: 08-18-2022 End: 09-20-2022 Alcohol intake Current non-drinker of alcohol (finding) [facility] Start: 1970 Sex Assigned At Not on file [facility] Start: 08-08-2022 End: 09-20-2022 Exposure to SARS-CoV-2 (event) Not sure [facility] Start: 09-09-2024 End: 01-11-2025 Tobacco smoking status NHIS Ex-smoker (finding) [facility] Start: 09-09-2024 End: 09-27-2024 Sex Female (finding) [facility] Sex [facility] Medical Equipment Procedure Code Equipment Code Equipment Origin al Text Equipment Identifier Dates ([id number]) [id number] [facility] Start: 05-19-2021 Pen Needle, Diab etic (Bd [...] rdiac .99cm 5.37x8.18cm Vigilant X4 Mr - [id number] Start: 08-18-2022 Lead Pacing 86cm 3.9-5.2fr 2.6fr Acuity X4 Quadripolar Kristina - [id number] Start: 08-18-2022 Pen Needle, Diab etic [...] Assessment Result Facility 12-01-2024 Functional status Ambulates [facility] Work Phone: 09-11-2024 Functional status Ambulates [facility] Work Phone: 09-10-2023 Functional status Ambulates [facility] Work Phone: 08-29-2023 Functional status Ambulates [facility] Work Phone: 08-07-2022 Functional status Bathroom Privilege [facility] Work Phone: 09-14-2021 Functional status Ambulates;Bathroom Priv ilege [facility] Work Phone: 07-19-2021 Functional status Ambulates;Up a d radha;Bathroom Privilege [facility] Work Phone: 05-25-2021 Functional status Ambulates;Chair [facility] Work Phone: 05-20-2021 Functional status Up ad radha [facility] Work Phone: 05-19-2021 Functional status None [facility] Work Phone: Mental Status Date Assessment Result Facility 01-11-2025 Cognitive function Voice/Name [facility] Work Phone: 12-01-2024 Cognitive function Voice/Name [facility] Work Phone: 09-11-2024 Cognitive function Voice/Name [facility] Work Phone: 09-09-2023 Cognitive function Voice/Name [facility] Work Phone: 08-29-2023 Cognitive function Cooperative [facility] Work Phone: 05-18-2023 Cognitive function Awake [facility] Work Phone: 08-07-2022 Cognitive function Voice/Name [facility] Work Phone: 04-05-2022 Cognitive function Voice/Name [facility] Work Phone: 01-24-2022 Cognitive function Voice/Name [facility] Work Phone: 11-17-2021 Cognitive function Level Of Cons ciousness Awake;Alert;Appropriate [facility] Work Phone: 11-06-2021 Cognitive function Voice/Name [facility] Work Phone: 09-16-2021 Cognitive function Level Of Cons ciousness Awake;Alert;Appropriate;Follow s Commands [facility] Work Phone: 09-14-2021 Cognitive function Voice/Name [facility] Work Phone: 09-08-2021 Cognitive function Voice/Name [facility] Work Phone: 07-17-2021 Cognitive function Demonstrates ability to follow instructions/comprehend [facility] Work Phone: 07-17-2021 Cognitive function Level Of Cons ciousness Awake;Alert;Appropriate;Follow s Commands [facility] Work Phone: 06-07-2021 Cognitive function Voice/Name [facility] Work Phone: 06-04-2021 Cognitive function Voice/Name [facility] Work Phone: 05-25-2021 Cognitive function Voice/Name [facility] Work Phone: 05-20-2021 Cognitive function Voice/Name [facility] Work Phone: 05-19-2021 Cognitive function Memory Description Int act [facility] Work Phone: Clinical Notes 05-19-2021 to 01-25-2025 Note Date & Type Note Facility 01-25-2025 Radiology Diagnostic study note [facility] 01-11-2025 Radiology Diagnostic study note [facility] 01-11-2025 Radiology Diagnostic study note [facility] 12-28-2024 Procedure note [facility] 2024 Evaluation note Diagnosis Onset Date Resolution CHF (congestive heart failure) chronic 2024 9:22am Dyspnea on exertion chronic 2024 9:22am Obesity chronic 2024 9:22am KANIKA (obstructive sleep apnea) chronic 2024 9:22am CHF (congestive heart failure) chronic January 11, 2025 8:11am Dyspnea on exertion chronic 2024 8:11am Obesity chronic January 11, 2025 8:11am KANIKA (obstructive sleep apnea) chronic January 11, 2025 8:11am Cardiomyopathy, ischemic acute January 29, 2025 1:31pm Palpitations acute January 29, 2025 1:31pm Presence of cardiac 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 therapy defibrillator (MASTER YACHT-D) acute January 29, 2025 1:31pm Benign hypertension chronic Aug t 2024 1:31pm Dyspnea on exertion chronic t 2024 1:31pm History of coronary artery stent placement May 19, 2021 chronic January 29, 2025 1:31pm Hyperlipidemia chronic January 1:31pm Left bundle branch block (LBBB) chronic January 29, 2025 1:31pm [facility] Work Phone: 1(379) 722-781807-03-2025 Radiology Diagnostic study [facility]07-03-2025 Discharge summary Author Rell Loera [facility] Note Date/Time December 06, 2024 8:49p m [facility] System Medical Records Department [address] [place] [address] Emergency Department Summary 12/06/24 MR#: [id number] Acct: [id number] Name: PITO HENDRIX Rep #:[id number] : 1970 53 From: Rell Loera MD [...] this, she states it helps some. PFSH PFS Medical History Chronic anticoagulation Pacemaker Hypothyroidism Chronic pain Asthma ICD (implantable cardioverter-defibrillator) in place Angina pectoris TRAE (acute kidney injury) Hypokalemia Hyperglycemia History of COPD History of NV (myocardial infarction) Antiplatelet or antithrombotic long-term use Anticoagulant long-term use Presence of cardiac 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 therapy defibrillator (MASTER YACHT-D) Diabetes Atrial fibrillation Coronary artery disease Hypertension Paroxysmal atrial fibrillation Hyperthyroidism Vomiting Hirsutism Chronic nausea Non-ST elevation (NSTEMI) myocardial infarction Difficult intubation Syncope Thyroid nodule Kidney stones Former smoker COPD (chronic obstructive pulmonary disease) Irregular heart beat Myocardial infarct Seizures COVID-19 virus infection Cardiomyopathy, ischemic Atherosclerotic heart disease of [place] coronary artery without angina pectoris HFrEF (heart [...] 24 hr .COMPLEX heart #360 TABL ETS blood-glucose,cooler operator,cont #1 ea 10/10/23 Unknown Rx (Dexcom G7 Seo Expert) apixaban 5 mg tablet (Eliquis) See Rx Instructions .Ro blackfeet 12/13/23 10/15/24 Rx .COMPLEX blood thinner #180 [...] (Auto) 70.4 H Lymph % (Auto) 22.5 [place] % (Auto) 5.4 Eos % (Auto) 0.8 [...] 18:30 IMPRESSION: Stable mild cardiomegaly. Reading Location: [facility] Rhythm Strip Rhythm Strip: Paced Rate: [...] by mouth once daily (DME) Dexcom G7 Seo Expert Misc See Rx Instructions .Route Qty: 1 [...] Primary Care Provider: Margo Tatum Referrals: Margo Tatum, [Primary Care Provider] - Keep Macy appointment (Also keep scheduled appointments with cardiology, pulmonary) Print Language: Angolan Disposition Disposition: Home, Self Care What to do if you have Problems For any increased pain, shortness of breath, bleeding, nausea or vomiting, chestpain, or any unexpected problems, contact your Primary Care Provider. Call [facility] ([phone]) or report to the closest Emergency Room. Call 911 if necessary. 12/06/242048 <Electronically signed by Rell Loera MD> Cosigner Signature (if applicable): CC: Dr. Margo Tatum DO ~ Signed [facility] Work Phone: 1(522) 782-584706-28-2025 Discharge summary Author Aidan Staples [facility] Note Date/Time December 01, 2024 12:3 3pm [facility] System Medical Records Department [address] [place] [address] Instructions for Home/Discharge Instructions 12/01/24 1215 MR#: [id number] Acct: [id number] Name: PITO HENDRIX Rep #:[id number] : 1970 53 From: Aidan Staples DO [...] by mouth once daily (DME) Dexcom G7 Seo Expert Misc See Rx Instructions .Route Qty: 1 [...] DO; Dr. Suma Mathew MD ~ Signed [facility] Work Phone: 1(484) 272-890106-28-2025 Hospital Discharge instructionsAdditional Instructions Date of Discharge: 12/01/24[facility] Work Phone: 1(930) 812-625206-28-2025 [facility]06-28-2025 Discharge summary Author [facility] Note Date/Time November 30, 2024 10:4 2pm [facility] System Medical Records Department [address] [place] [address] Emergency Department Summary 11/30/24 MR#: [id number] Acct: [id number] Name: PITO HENDRIX KAYLIN Rep #:[id number] : 1970 53 From: Allen Meraz DO PCP: Dr. Margo Tatum DO Status:ADM HERMINIA Location: [address] History of Present Illness Chief Complaint: [...] cough. She denies recent travel or surgery [facility] Medical History Chronic anticoagulation Pacemaker Hypothyroidism Chronic pain Asthma ICD (implantable cardioverter-defibrillator) in place Angina pectoris TRAE (acute kidney injury) Hypokalemia Hyperglycemia History of COPD History of NV (myocardial infarction) Antiplatelet or antithrombotic long-term use Anticoagulant long-term use Presence of cardiac 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 therapy defibrillator (MASTER YACHT-D) Diabetes Atrial fibrillation Coronary artery disease Hypertension Paroxysmal atrial fibrillation Hyperthyroidism Vomiting Hirsutism Chronic nausea Non-ST elevation (NSTEMI) myocardial infarction Difficult intubation Syncope Thyroid nodule Kidney stones Former smoker COPD (chronic obstructive pulmonary disease) Irregular heart beat Myocardial infarct Seizures COVID-19 virus infection Cardiomyopathy, ischemic Atherosclerotic heart disease of [place] coronary artery without angina pectoris HFrEF (heart [...] 24 hr .COMPLEX heart #360 TABL ETS blood-glucose,cooler operator,cont #1 ea 10/10/23 Unknown Rx (Dexcom G7 Seo Expert) apixaban 5 mg tablet (Eliquis) See Rx Instructions .Ro blackfeet 12/13/23 10/15/24 Rx .COMPLEX blood thinner #180 [...] given Solu-Medrol. Because of the elevated BT BAD WORK GATHERER she was given 80 mg Lasix IV. [...] % (Auto) 61.9 Lymph % (Auto) 30.4 [place] % (Auto) 5.2 Eos % (Auto) 1.9 [...] 16:55 IMPRESSION: Stable mild cardiomegaly. Reading Location: [facility] Discharge Plan Triage Chief Complaint: Shortness of [...] PT IS TAKING TWICE A DAY PER insulin glargine-yfgn 100 unit/mL (3 mL) Insulin [...] by mouth once daily (DME) Dexcom G7 Seo Expert Misc See Rx Instructions .Route Qty: 1 [...] DO [Primary Care Provider] - Print Language: Angolan Disposition Disposition: Acute Care Hospital [facility] What to do if you have Problems For any increased pain, shortness of breath, bleeding, nausea or vomiting, chestpain, or any unexpected problems, contact your Primary Care Provider. Call [facility] ([phone]) or report to the closest Emergency Room. Call 911 if necessary. 11/30/242241 <Electronically signed by Allen Meraz DO> Cosigner Signature (if applicable): CC: Dr. Margo Tatum DO ~ Signed [facility] Work Phone: 1(148) 811-185106-27-2025 History and physical note Author Suma Mathew [facility] Note Date/Time November 30, 2024 7:38 pm [facility] Medical Records Department [address] [place] [address] H&P Exam - Hospitalist 11/30/24 1904 MR#: [id number] Acct: [id number] Name: PITO HENDRIX Rep #:[id number] : 1970 53 From: Suma Mathew MD PCP: Dr. Margo Tatum DO Status:ADM HERMINIA Location: [place] [address] HPI - General General Date of Admission: 11/30/24 Date of Service: 11/30/24 Chief Complaint: Worsening shortness of breath HPI Meme HENDRIX, is a 53-year-old female history of pacemaker/AICD, coronary artery disease with stenting, asthma/COPD, A-fib, heart failure, diabetes, hyperthyroidism presented [facility] ED 11/30/2024 for shortness of breath that [...] medications including her inhalers and her Eliquis. [facility] Medical History Chronic anticoagulation Pacemaker Hypothyroidism Chronic pain Asthma ICD (implantable cardioverter-defibrillator) in place Angina pectoris TRAE (acute kidney injury) Hypokalemia Hyperglycemia History of COPD History of NV (myocardial infarction) Antiplatelet or antithrombotic long-term use Anticoagulant long-term use Presence of cardiac 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 therapy defibrillator (MASTER YACHT-D) Diabetes Atrial fibrillation Coronary artery disease Hypertension Paroxysmal atrial fibrillation Hyperthyroidism Vomiting Hirsutism Chronic nausea Non-ST elevation (NSTEMI) myocardial infarction Difficult intubation Syncope Thyroid nodule Kidney stones Former smoker COPD (chronic obstructive pulmonary disease) Irregular heart beat Myocardial infarct Seizures COVID-19 virus infection Cardiomyopathy, ischemic Atherosclerotic heart disease of [place] coronary artery without angina pectoris HFrEF (heart [...] 24 hr .COMPLEX heart #360 TABL ETS blood-glucose,cooler operator,cont #1 ea 10/10/23 Unknown Rx (Dexcom G7 Seo Expert) apixaban 5 mg tablet (Eliquis) See Rx Instructions .Ro blackfeet 12/13/23 10/15/24 Rx .COMPLEX blood thinner #180 [...] % (Auto) 61.9, Lymph % (Auto) 30.4, [place] % (Auto) 5.2, Eos % (Auto) 1.9, [...] 16:55 IMPRESSION: Stable mild cardiomegaly. Reading Location: [facility] Assessment & Plan Assessment/Plan (1) Shortness of [...] CAD -w/ previous stenting -Continue home medications #AKNIKA -Patient reports she has not been able to be compliant with his CPAP due to the mask, advise she follow-up outpatient to discuss other options to manage her sleep apnea #GERD -Continue PPI #DVT ppx: On chronic full dose anticoagulation Suma Mathew MD Charges/Coding Visit Charges Inpatient E&M: 47818 Init Hosp L2 11/30/241937 <Electronically signed by Suma Mathew MD> Cosigner Signature (if applicable): CC: Dr. Margo Tatum DO; Dr. Suma Mathew MD~ Signed [facility] Work Phone: 1(601) 685-366006-27-2025 Radiology Diagnostic study [facility]06-04-2025 Evaluation note* Diagnosis Onset Date Resolution Status [...] apnea) chroni c January 11, 2025 8:11am [facility] Work Phone: 1(878) 316-465906-04-2025 Evaluation note* Diagnosis Onset Date Resolution Status Admit Date Benign hypertension chronic November 07, 2024 2:31pm Hyperlipidemia chronic November 07, 2024 2:31pm Hyperthyroidism chronic November 07, 2024 2:31pm Multiple thyroid nodules November 07, 2024 2:31pm Obesity November 07, 2024 2:31pm Uncontrolled type 2 diabetes mellitus chronic November 07, 2024 2:31pm Vitamin D insufficiency chronic J 2024 2:31pm [...] 1:31pm Presence of cardiac 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 therapy defibrillator (MASTER YACHT-D) acute January 1:31pm Benign hypertension chronic 2024 1:31pm Dyspnea on exertion chronic 2024 1:31pm History of coronary artery stent placement May 19, 2021 chronic January 29, 2025 1:31pm Hyperlipidemia chronic January 1:31pm Left bundle branch block (LBBB) chronic January 29 1:31pm [facility] Work Phone: 1(722) 985-689805-12-2025 Radiology Diagnostic study note [facility] Imaging Services [address] [place], [place] [id number] Chest 1 View (Portable) MR#: [id number] Acct: [id number] Name: PITO HENDRIX KAYLIN Rep #: [id number] : 1970 F 53 From: Nathan Jyo MD PCP: Dr. Margo Tatum DO Status: REG ER Study:Chest 1 View (Portable) Date of Exam: 10/15/24 Exam# [id number] Ordering Dr: Kathy Villafana PROCEDURE: CHEST 1 VIEW (PORTABLE) 10/15/2024 REASON [...] cardiomegaly. The lungs are clear. Reading Location: [facility] CC: Dr. Margo Tatum DO; ED PHYSICIAN PROVIDER ~ Casting Machine Operator Automatic: Signed [facility]04-21-2025 Radiology Diagnostic study note [facility] Imaging Services [address] [place], [place] [address] Thyroid MR#: [id number] Acct: [id number] Name: PITO HENDRIX KAYLIN Rep #: [id number] : 1970 F 53 From: Nathan Joy MD PCP: Dr. Margo Tatum DO Status: REG CLI Study:Thyroid Date of Exam: 09/24/24 Exam# [id number] Ordering Dr: Mike Tom BAD WORK GATHERER-C PROCEDURE: THYROID 09/24/2024 REASON FOR EXAM: THYROID [...] echotexture. Stable bilateral thyroid nodules. Reading Location: [place] [address] CC: CARMEN Tom; Dr. Margo Tatum DO; Dr. Edward Hancock MD ~ Casting Machine Operator Automatic: Signed [facility]04-08-2025 Discharge summary [facility] Medical Records Department [address] [place] [address] Discharge Summary 09/11/24 1601 MR#: [id number] Acct: [id number] Name: PITO HENDRIX Rep #:[id number] : 1970 53 From: Damaris Thibodeaux DO PCP: Dr. Margo Tatum DO Status:ADM IN Location: [place] [address] Providers Date of Admission: 09/09/24 Date of [...] #360 TABLETS 06/09/23 blood-glucose meter,continuous (Dexcom G7 Seo Expert) #1 ea 10/10/23 apixaban 5 mg tablet [...] history presented to the emergency department at [facility] on 09/09/2024 with chief complaint [...] home oral agents and follow-up with her monotype caster this previous be recommended. Blood sugars were [...] therapy Acute exacerbation of COPD-resolved Transient hypotension-resolved [id number] Paroxysmal atrial fibrillation Chronic LBBB History of VTE Hypothyroidism with history of thyroid nodules-->patient is following with endocrinology> [facility] plan is to follow-up with Dr. Hancock [...] by mouth once daily (DME) Dexcom G7 Seo Expert Misc See Rx Instructions .Route Qty: 1 [...] addition to their follow-up appointment) Bryan Mitchell BAD WORK GATHERER, BAD WORK GATHERER-C [Med Staff - Adv Practice Prof] - Within 1 Month (Please call and get an appointment to be seen by cardiology within the next 2 to 4 weeks) Disposition Disposition (needs filled in before D/C Order can be placed): Home, Self Care Charges/Coding Visit Charges Inpatient E&M: 95692 Disch Hosp >30min 09/11/24 1620 Cosigner Signature (if applicable): CC: CARMEN Tom; ROBINSON Mitchell; Dr. Damaris Thibodeaux DO; Dr. Margo Tatum, DO~ Signed [facility]04-08-2025 [facility] Progress note Author Jamie Manrique [facility] Note Date/Time September 10, 2024 11:5 7am [facility] Medical Records Department [address] [facility] [place] [address] Progress Note - Hospitalist 09/10/24 0937 MR#: [id number] Acct: [id number] Name: PITO HENDRIX Rep #:[id number] : 1970 53 From: Jamie nolasco DO PCP: Dr. Margo Tatum DO Status:ADM IN Location: [place] [address] Reason for Visit Reason for Visit: Diagnoses [...] % (Auto) 69.4, Lymph % (Auto) 25.2, [place] % (Auto) 3.9, Eos % (Auto) 1.0, [...] 87.6 H, Lymph % (Auto) 10.4 L, [place] % (Auto) 1.4, Eos % (Auto) 0.0, [...] pneumonia in the lower lobes. Reading Location: [facility] Chest CTA 09/09/24 16:42 IMPRESSION: NORMAL CHEST CTA. NO EVIDENCE OF ACUTE PULMONARY EMBOLISM. Patchy bilateral airspace opacities, concerning for infiltrates. Small bilateral pleural effusion with atelectasis. Ill-defined low attenuating lesion of the thyroid gland, please correlate with ultrasound. [facility] Physical Exam Const alert, oriented x3 [...] is a 53-year-old female who presented to [facility] ED on 09/09/2024 with shortness [...] ? Paroxysmal A-fib, history of LBBB s/p MASTER YACHT-D placement, history of VTE: Stable in normal [...] 35 minutes. Charges/Coding Visit Charges Inpatient E&M: 27744 Subs Hosp L2 09/10/24 1157 <Electronically signed by Jamie Manrique DO> Cosigner Signature (if applicable): CC: ~ Signed [facility] Work Phone: 1(190) 430-489704-07-2025 Progress note [facility] Medical Records Department [address] [place] [address] Progress Note - Hospitalist 09/10/24 0937 MR#: [id number] Acct: [id number] Name: PITO HENDRIX Rep #:[id number] : 1970 53 From: Jamie nolasco DO PCP: Dr. Margo Tatum DO Status:ADM IN Location: [place] [address] Reason for Visit Reason for Visit: Diagnoses [...] % (Auto) 69.4, Lymph % (Auto) 25.2, [place] % (Auto) 3.9, Eos % (Auto) 1.0, [...] 87.6 H, Lymph % (Auto) 10.4 L, [place] % (Auto) 1.4, Eos % (Auto) 0.0, Baso % (Auto) 0.1, Absolute Neuts (auto) 7.6, Absolute Lymphs (auto) 0.90, Nucleated RBC % 0, Sodium 137, Potassium 3.4, Bjjzmave768, Carbon Dioxide 17.8 L, Anion Gap 16 H, BUN 23 H, Creatinine 0.82, Estim Creat Clear Calc 86.74, Est GFR (MDRD) Non-Af 85, BUN/Creatinine Ratio 28.5 H, Glucose 315 H, Hemoglobin A1c 9.4, Calcium 9.1 09/10/24 06:21: POC Glucose 292 H Radiography Diagnostic Testing: Radiology Impression Chest X-Ray 09/09/24 16:15 IMPRESSION: Suspect subtle pneumonia in the lower lobes. Reading Location: [facility] Chest CTA 09/09/24 16:42 IMPRESSION: NORMAL CHEST CTA. NO EVIDENCE OF ACUTE PULMONARY EMBOLISM. Patchy bilateral airspace opacities, concerning for infiltrates. Small bilateral pleural effusion with atelectasis. Ill-defined low attenuating lesion of the thyroid gland, please correlate with ultrasound. Reading [facility] Physical Exam Const alert, oriented x3 [...] is a 53-year-old female who presented to [facility] ED on 09/09/2024 with shortness [...] small bilateral pleural effusions with atelectasis. BNP 4. Last echo on 01/20/2024 showed EF 50 [...] ? Paroxysmal A-fib, history of LBBB s/p MASTER YACHT-D placement, history of VTE: Stable in normal [...] 35 minutes. Charges/Coding Visit Charges Inpatient E&M: 48638 Subs Hosp L2 09/10/24 1157 Cosigner Signature (if applicable): CC: ~ Signed [facility]04-06-2025 Evaluation note* Diagnosis Onset Date [...] (CHF) resol syeda September 12, 2024 2:41pm [facility] Work Phone: 1([phone]) 655-116104-06-2025 Evaluation note* Diagnosis Onset Date Resolution Status [...] D insufficiency chronic J une 2024 2:31pm [facility] Work Phone: 1([phone]) 465-874504-06-2025 Evaluation note* Diagnosis Onset Date Resolution Status [...] of breath acute November 30, 2024 7:04pm [facility] Work Phone: 1([phone]) 516-295304-06-2025 Evaluation note* Diagnosis Onset Date Resolution Status [...] :31pm Vitamin D insufficiency chronic 2024 2:31pm Shortness of breath inactive November 30, 2024 7:04pm CHF (congestive heart failure) acute 2024 9:22am Dyspnea on exertion acute 2024 9:22am KANIKA (obstructive sleep apnea) acute 2024 9:22am Obesity chronic 2024 9:22am [place] [employer] [facility] Work Phone: [phone]) 615-842004-06-2025 Evaluation note* Diagnosis Onset Date Resolution Status [...] (obstructive sleep apnea) chroni c 2024 9:22am [facility] Work Phone: 1([phone] 277-230304-06-2025 History and physical note Author Francine [facility] Note Date/Time September 09, 2024 8:17 pm [facility] Medical Records Department [address] [place] [address] H&P Exam - Hospitalist 09/09/24 1802 MR#: [id number] Acct: [id number] Name: PITO HENDRIX KAYLIN Rep #:[id number] : 1970 53 From: Francine Steele MD PCP: Dr. Margo Tatum, DO Status:ADM IN Location: [place] [id number]- 1 HPI - General General Date of [...] gap of 12. Cr was 0.78. ProBNP gic3025. D dimer was 1.06. CHest xray showed [...] hypoxia dueto acute exacerbation of heart failure. [facility] Medical History Obesity Angina pectoris TRAE (acute kidney injury) Hypokalemia Hyperglycemia History of COPD History of NV (myocardial infarction) Cardiomyopathy, ischemic Type 2 diabetes mellitus Antiplatelet or antithrombotic long-term use Anticoagulant long-term use Presence of cardiac 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 therapy defibrillator (MASTER YACHT-D) Diabetes Atrial fibrillation Coronary artery disease Hypertension Paroxysmal atrial fibrillation Hyperthyroidism Vomiting Hirsutism Chronic nausea Non-ST elevation (NSTEMI) myocardial infarction Difficult intubation Syncope Thyroid nodule Kidney stones Former smoker COPD (chronic obstructive pulmonary disease) Irregular heart beat Myocardial infarct Seizures COVID-19 virus infection Atherosclerotic heart disease of [place] coronary artery without angina pectoris HFrEF (heart [...] #1 ea 10/10/23 Unknown Rx (Dexcom G7 Seo Expert) apixaban 5 mg tablet (Eliquis) See Rx Instructions .Ro blackfeet 12/13/23 Unknown Rx .COMPLEX blood thinner #180 [...] % (Auto) 69.4, Lymph % (Auto) 25.2, [place] % (Auto) 3.9, Eos % (Auto) 1.0, [...] pneumonia in the lower lobes. Reading Location: [facility] Chest CTA 09/09/24 16:42 IMPRESSION: NORMAL CHEST CTA. NO EVIDENCE OF ACUTE PULMONARY EMBOLISM. Patchy bilateral airspace opacities, concerning for infiltrates. Small bilateral pleural effusion with atelectasis. Ill-defined low attenuating lesion of the thyroid gland, please correlate with ultrasound. Reading Location: [facility] Assessment & Plan Assessment/Plan (1) Congestive [...] elects to be full code. * Total uepi-tt-qykj time 17 minutes. Charges/Coding Visit Charges Inpatient E&M: 08028 Init Hosp L3 Procedures Hospitalists Procedures: 35331 Advncd Care Plan 30 Min 09/09/242016 <Electronically signed by Francine Steele MD> Cosigner Signature (if applicable): CC: Dr. Margo Tatum DO; Dr. Francine Steele MD~ Signed [facility] Work Phone: 1([phone]) [phone] History and physical note [facility] Medical Records Department [address] [place] [address] H&P Exam - Hospitalist 09/09/24 1802 MR#: [id number] Acct: [id number] Name: PITO HENDRIX KAYLIN Rep #:[id number] : 1970 53 From: Francine Steele MD PCP: Dr. Margo Tatum, DO Status:ADM IN Location: [facility] [id number]- 1 HPI - General General Date of [...] gap of 12. Cr was 0.78. ProBNP oms6937. D dimer was 1.06. CHest xray showed [...] hypoxia dueto acute exacerbation of heart failure. [facility] Medical History Obesity Angina pectoris TRAE (acute kidney injury) Hypokalemia Hyperglycemia History of COPD History of NV (myocardial infarction) Cardiomyopathy, ischemic Type 2 diabetes mellitus Antiplatelet or antithrombotic long-term use Anticoagulant long-term use Presence of cardiac 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 therapy defibrillator (MASTER YACHT-D) Diabetes Atrial fibrillation Coronary artery disease Hypertension Paroxysmal atrial fibrillation Hyperthyroidism Vomiting Hirsutism Chronic nausea Non-ST elevation (NSTEMI) myocardial infarction Difficult intubation Syncope Thyroid nodule Kidney stones Former smoker COPD (chronic obstructive pulmonary disease) Irregular heart beat Myocardial infarct Seizures COVID-19 virus infection Atherosclerotic heart disease of [place] coronary artery without angina pectoris HFrEF (heart [...] #1 ea 10/10/23 Unknown Rx (Dexcom G7 Seo Expert) apixaban 5 mg tablet (Eliquis) See Rx Instructions .Ro blackfeet 12/13/23 Unknown Rx .COMPLEX blood thinner #180 [...] % (Auto) 69.4, Lymph % (Auto) 25.2, [place] % (Auto) 3.9, Eos % (Auto) 1.0, [...] pneumonia in the lower lobes. Reading Location: [facility] Chest CTA 09/09/24 16:42 IMPRESSION: NORMAL [...] elects to be full code. * Total oiuq-dq-yoiq time 17 minutes. Charges/Coding Visit Charges Inpatient E&M: 66316 Init Hosp L3 Procedures Hospitalists Procedures: 30332 Advncd Care Plan 30 Min 09/09/242016 Cosigner Signature (if applicable): CC: Dr. Margo Tatum DO; Dr. Francine Steele MD~ Signed [facility]04-06-2025 Discharge summary Author Carlos Saleem [facility] Note Date/Time September 09, 2024 6:08 pm [facility] Medical Records Department [address] [place] [address] Emergency Department Summary 09/09/24 MR#: [id number] Acct: [id number] Name: PITO HENDRIX KAYLIN Rep #:[id number] : 1970 53 From: Carlos Saleem MD [...] effective in treating her shortness of breath. [facility] Medical History Obesity Angina pectoris TRAE (acute kidney injury) Hypokalemia Hyperglycemia History of COPD History of NV (myocardial infarction) Cardiomyopathy, ischemic Type 2 diabetes mellitus Antiplatelet or antithrombotic long-term use Anticoagulant long-term use Presence of cardiac 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 therapy defibrillator (MASTER YACHT-D) Diabetes Atrial fibrillation Coronary artery disease Hypertension Paroxysmal atrial fibrillation Hyperthyroidism Vomiting Hirsutism Chronic nausea Non-ST elevation (NSTEMI) myocardial infarction Difficult intubation Syncope Thyroid nodule Kidney stones Former smoker COPD (chronic obstructive pulmonary disease) Irregular heart beat Myocardial infarct Seizures COVID-19 virus infection Atherosclerotic heart disease of [place] coronary artery without angina pectoris HFrEF (heart [...] #1 ea 10/10/23 Unknown Rx (Dexcom G7 Seo Expert) apixaban 5 mg tablet (Eliquis) See Rx Instructions .Ro blackfeet 12/13/23 Unknown Rx .COMPLEX blood thinner #180 [...] Lasix 40 mg intravenously. Repeat examination at [id number] does show mild improvement but she still [...] % (Auto) 69.4 Lymph % (Auto) 25.2 [place] % (Auto) 3.9 Eos % (Auto) 1.0 [...] pneumonia in the lower lobes. Reading Location: [facility] Chest CTA 09/09/24 16:42 IMPRESSION: NORMAL CHEST CTA. NO EVIDENCE OF ACUTE PULMONARY EMBOLISM. Patchy bilateral airspace opacities, concerning for infiltrates. Small bilateral pleural effusion with atelectasis. Ill-defined low attenuating lesion of the thyroid gland, please correlate with ultrasound. Reading Location: [facility] Differential Diagnosis Chest pain/SOB: pulmonary embolism, ACS, pneumothorax, pneumonia, CHF and COPD Management Discussion w/another healthcare provider: Hospitalist Discharge Plan Dx/Rx/DC Orders Clinical Impression: Dyspnea, Pacemaker, Chronic anticoagulation, Elevated d-dimer, Congestive heartfailure (CHF) Disposition Disposition: Acute Care Hospital [facility] What to do if you have Problems For any increased pain, shortness of breath, bleeding, nausea or vomiting, chestpain, or any unexpected problems, contact your Primary Care Provider. Call [facility] ([phone]) or report to the closest Emergency Room. Call 911 if necessary. 09/09/241807 <Electronically signed by Carlos Saleem MD> Cosigner Signature (if applicable): CC: Dr. Margo Tatum, DO ~ Signed [facility] Work Phone: 1([phone]) 344-390004-06-2025 History and physical note Author [facility] Note Date/Time September 09, 2024 8:17 pm [facility] Medical Records Department [address] [place] [address] H&P Exam - Hospitalist 09/09/24 180 MR#: [id number] Acct: [id number] Name: PITO HENDRIX Rep #:[id number] : 1970 53 From: Francine Steele MD PCP: Dr. Margo Tatum, DO Status:ADM IN Location: [place] [id number]- 1 HPI - General General Date of [...] gap of 12. Cr was 0.78. ProBNP pwv3502. D dimer was 1.06. CHest xray showed [...] hypoxia dueto acute exacerbation of heart failure. [facility] Medical History Obesity Angina pectoris TRAE (acute kidney injury) Hypokalemia Hyperglycemia History of COPD History of NV (myocardial infarction) Cardiomyopathy, ischemic Type 2 diabetes mellitus Antiplatelet or antithrombotic long-term use Anticoagulant long-term use Presence of cardiac 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 therapy defibrillator (MASTER YACHT-D) Diabetes Atrial fibrillation Coronary artery disease Hypertension Paroxysmal atrial fibrillation Hyperthyroidism Vomiting Hirsutism Chronic nausea Non-ST elevation (NSTEMI) myocardial infarction Difficult intubation Syncope Thyroid nodule Kidney stones Former smoker COPD (chronic obstructive pulmonary disease) Irregular heart beat Myocardial infarct Seizures COVID-19 virus infection Atherosclerotic heart disease of [place] coronary artery without angina pectoris HFrEF (heart [...] #1 ea 10/10/23 Unknown Rx (Dexcom G7 Seo Expert) apixaban 5 mg tablet (Eliquis) See Rx Instructions .Ro blackfeet 12/13/23 Unknown Rx .COMPLEX blood thinner #180 [...] % (Auto) 69.4, Lymph % (Auto) 25.2, [place] % (Auto) 3.9, Eos % (Auto) 1.0, [...] lobes. Reading Location[facility] Chest CTA 09/09/24 16:42 IMPRESSION: NORMAL CHEST CTA. NO EVIDENCE OF ACUTE PULMONARY EMBOLISM. Patchy bilateral airspace opacities, concerning for infiltrates. Small bilateral pleural effusion with atelectasis. Ill-defined low attenuating lesion of the thyroid gland, please correlate with ultrasound. Reading Location: [facility] Assessment & Plan Assessment/Plan (1) Congestive heart [...] elects to be full code. * Total vrhe-ow-pcwu time 17 minutes. Charges/Coding Visit Charges Inpatient E&M: 71237 Init Hosp L3 Procedures Hospitalists Procedures: 47165 Advncd Care Plan 30 Min 09/09/242016 <Electronically signed by Francine Steele MD> Cosigner Signature (if applicable): CC: Dr. Margo Tatum DO; Dr. Francine Steele MD~ Signed [facility] Work Phone: 1(628) 623-334504-06-2025 Discharge summary [facility] Medical Records Department [address] [place] [address] Emergency Department Summary 09/09/24 MR#: [id number] Acct: [id number] Name: PITO HENDRIX Rep #:[id number] : 1970 53 From: Carlos Saleem MD [...] effective in treating her shortness of breath. [facility] Medical History Obesity Angina pectoris TRAE (acute kidney injury) Hypokalemia Hyperglycemia History of COPD History of NV (myocardial infarction) Cardiomyopathy, ischemic Type 2 diabetes mellitus Antiplatelet or antithrombotic long-term use Anticoagulant long-term use Presence of cardiac 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 therapy defibrillator (MASTER YACHT-D) Diabetes Atrial fibrillation Coronary artery disease Hypertension Paroxysmal atrial fibrillation Hyperthyroidism Vomiting Hirsutism Chronic nausea Non-ST elevation (NSTEMI) myocardial infarction Difficult intubation Syncope Thyroid nodule Kidney stones Former smoker COPD (chronic obstructive pulmonary disease) Irregular heart beat Myocardial infarct Seizures COVID-19 virus infection Atherosclerotic heart disease of [place] coronary artery without angina pectoris HFrEF (heart [...] #1 ea 10/10/23 Unknown Rx (Dexcom G7 Seo Expert) apixaban 5 mg tablet (Eliquis) See Rx Instructions .Ro blackfeet 12/13/23 Unknown Rx .COMPLEX blood thinner #180 [...] Lasix 40 mg intravenously. Repeat examination at [id number] does show mild improvement butshe still has [...] % (Auto) 69.4 Lymph % (Auto) 25.2 [place] % (Auto) 3.9 Eos % (Auto) 1.0 [...] pneumonia in the lower lobes. Reading Location: [facility] Chest CTA 09/09/24 16:42 IMPRESSION: NORMAL CHEST CTA. NO EVIDENCE OF ACUTE PULMONARY EMBOLISM. Patchy bilateral airspace opacities, concerning for infiltrates. Small bilateral pleural effusion with atelectasis. Ill-defined low attenuating lesion of the thyroid gland, please correlate with ultrasound. Reading Location[facility] Differential Diagnosis Chest pain/SOB: pulmonary embolism, ACS, pneumothorax, pneumonia, CHF and COPD Management Discussion w/another healthcare provider: Hospitalist Discharge Plan Dx/Rx/DC Orders Clinical Impression: Dyspnea, Pacemaker, Chronic anticoagulation, Elevated d-dimer, Congestive heartfailure (CHF) Disposition Disposition: Acute Care Hospital [facility] What to do if you have Problems For any increased pain, shortness of breath, bleeding, nausea or vomiting, chestpain, or any unexpected problems, contact your Primary Care Provider. Call [facility] ([phone]) or report tothe closest Emergency Room. Call 911 if necessary. 09/09/24 5828 Cosigner Signature (if applicable): CC: Dr. Margo Tatum, DO ~ Signed [facility]04-06-2025 Radiology Diagnostic study note [facility] Imaging Services [address] [place], [place] [address] CTA Chest W/WO Contrast MR#: [id number] Acct: [id number] Name: PITO HENDRIX Rep #: [id number] : 1970 F 53 From: Ventura Diggs DO PCP: Dr. Margo Tatum DO Status: REG ER Study:CTA Chest W/WO Contrast Date of Exam: 09/09/24 Exam# [id number] Ordering Dr: Carlos Saleem MD PROCEDURE: CTA [...] gland, please correlate with ultrasound. Reading Location: [facility] CC: Dr. Carlos Saleem MD; Dr. Margo Tatum DO ~ Casting Machine Operator Automatic: Signed [facility]04-06-2025 Radiology Diagnostic study note [facility] Imaging Services [address] [place] [address] Chest 1 View (Portable) MR#: [id number] Acct: [id number] Name: PITO HENDRIX Rep #: [id number] : 1970 F 53 From: Pet er Payton MASON PCP: Dr. Margo Tatum DO Status: REG ER Study:Chest 1 View (Portable) Date of Exam: 09/09/24 Exam# [id number] Ordering Dr: Carlos Saleem MD PROCEDURE: CHEST [...] pneumonia in the lower lobes. Reading Location: [facility] CC: Dr. Carlos Saleem MD; Dr. Margo Tatum DO ~ Casting Machine Operator Automatic: Signed [facility]01-08-2025 Evaluation note* Diagnosis Onset Date [...] 09 6:17pm Pacemaker acute September 09 6:17pm [facility] Work Phone: 1([phone]) 793-269301-08-2025 Evaluation note* Diagnosis Onset Date Resolution Status [...] 09 8:17pm Pacemaker acute September 09 8:17pm [facility] Work Phone: [phone] 312-293501-08-2025 Evaluation note* Diagnosis Onset Date Resolution Status [...] September 09 8:17pm Chronic anticoagulation inactive A 2024 8:17pm Pacemaker inactive September 09 8:17pm Benign hypertension chronic September 12, 2024 2:41pm Hyperlipidemia chronic September 12, 2024 2:41pm Hyperthyroidism chronic September 2:41pm Multiple thyroid nodules chronic September 12, 2024 2:41pm Obesity chronic September 12 2:41pm Uncontrolled type 2 diabetes mellitus chronic September 12, 2024 2:41pm Congestive heart failure (CHF) resol syeda September 12, 2024 2:41pm [facility] Work Phone: 1(379) 607-538604-05-2024 Progress note Author Jamie Manrique [facility] September 09, 2023 6:11pm Note Date/Time September 09, 2023 4:00 pm [facility] Medical Records Department [address] [place] [address] Progress Note - Hospitalist 09/09/231599 MR#: [id number] Acct: [id number] Name: PITO HENDRIX Rep #:[id number] : 1970 52 From: Jamie nolasco DO PCP: Dr. Margo Tatum DO Status:ADM IN Location: [place] [address] 1 Reason for Visit Reason for Visit: Diagnoses Urinary tract infection, site not specified (09/06/23) Gross hematuria (09/06/23) residential (current) use of anticoagulants (09/06/23) Subjective Subjective [...] / 1420 240 / 240 Output Total 49675 / 51530 3000 / 3000 Balance -8780 / -8780 [...] is a 52-year-old female who presented to [facility] ED on 09/06/2023 with recurrent [...] 09/08. Hemoglobin trend 7.7 (09/07) > 8.4 (/ AM) > 8.9 (/ PM). Follow-up CBC tomorrow morning. If hemoglobin remained stable and patient has no signs of bleeding, will plan for discharge home tomorrow afternoon. Continue Macrobid. Chronic medical conditions: ? Obesity: BMI 35 on admit. Complicates hospital course, care and prognosis. ? Paroxysmal A-fib and LBBB s/p MASTER YACHT-D placement: Follows with Dr. Ho, last office [...] 35 minutes. Charges/Coding Visit Charges Inpatient E&M: 06427 Subs Hosp L2 09/09/23 5092 <Electronically signed by Jamie Manrique DO> Cosigner Signature (if applicable): CC: ~ Signed [facility] Work Phone: 1(776) 659-267304-05-2024 Progress note Author Berenice Short [facility] September 09, 2023 10:12am Note Date/Time September 09, 2023 10:1 2am [facility] Medical Records Department [address] [place] [address] Progress Note - Urology 09/09/23 1010 MR#: [id number] Acct: [id number] Name: PITO HENDRIX Rep #:[id number] : 1970 52 From: Berenice Wade PCP: Dr. Margo Tatum, DO Status:ADM IN Location: [place] [address] Subjective Subjective She is feeling so much [...] / 1420 240 / 240 Output Total 39156 / 05373 3000 / 3000 Balance -8780 / -8780 [...] Cosigner Signature (if applicable): CC: ~ Signed [facility] Work Phone: 1(986) 557-342704-04-2024 Progress note Author Jamie Manrique [facility] September 08, 2023 1:59pm Note Date/Time September 08, 2023 12:1 8pm [facility] Medical Records Department [address] [place] [address] Progress Note - Hospitalist 09/08/23 1217 MR#: [id number] Acct: [id number] Name: PITO HENDRIX Rep #:[id number] : 1970 52 From: Jamie nolasco DO PCP: Dr. Margo Tatum, Status:ADM IN Location: ICU CVICU20 4-1 Reason for Visit Reason for Visit: Diagnoses Urinary tract infection, site not specified (09/06/23) Gross hematuria (09/06/23) residential (current) use of anticoagulants (09/06/23) Subjective Subjective [...] / 1420 Output Total 1999 / 1999 41794 / 48994 2200 / 2200 Balance -1950 / -1950 [...] is a 52-year-old female [facility] [facility] ED on 09/06/2023 with recurrent [...] prognosis. ? Paroxysmal A-fib and LBBB s/p MASTER YACHT-D placement: Follows with Dr. Ho, last office [...] 35 minutes. Charges/Coding Visit Charges Inpatient E&M: 59301 Subs Hosp L2 09/08/23 1359 <Electronically signed by Jamie Manrique DO> Cosigner Signature (if applicable): CC: ~ Signed [facility] Work Phone: 1(992) 239-267904-04-2024 [facility] Progress note Author Jamie [facility] September 07, 2023 4:03pm Note Date/Time September 07, 2023 12:2 0pm [facility] Medical Records Department [address] [place] [address] Progress Note - Hospitalist 09/07/23 1220 MR#: [id number] Acct: [id number] Name: PITO HENDRIX Rep #:[id number] : 1970 52 From: Jamie nolasco DO PCP: Dr. Margo Tatum DO Status:ADM IN Location: ICU CVICU 4-1 Reason [...] % (Auto) 66.9, Lymph % (Auto) 24.9, [place] % (Auto) 7.2, Eos % (Auto) 0.6, [...] % (Auto) 56.1, Lymph % (Auto) 34.1, [place] % (Auto) 8.1, Eos % (Auto) 1.0, [...] is a 52-year-old female who presented to [facility] ED on 09/06/2023 with recurrent [...] prognosis. ? Paroxysmal A-fib and LBBB s/p MASTER YACHT-D placement: Follows with Dr. Ho, last office [...] 35 minutes. Charges/Coding Visit Charges Inpatient E&M: 08457 Subs Hosp L2 09/07/23 1603 <Electronically signed by Jamie Manrique DO> Cosigner Signature (if applicable): CC: ~ Signed [facility] Work Phone: 1(602) 237-938604-03-2024 Consult note Author Berenice Short [facility] September 07, 2023 12:55pm Note Date/Time September 07, 2023 12:5 5pm [facility] System Medical Records Department [address] [facility] [place] [address] Consultation 09/07/23 1246 MR#: [id number] Acct: [id number] Name: PITO HENDRIX KAYLIN Rep #:[id number] : 1970 52 From: Berenice Wade PCP: [...] bladder biopsy. The patient understands and agrees. [facility] Medical History Atherosclerotic heart disease of [place] coronary artery without angina pectoris Atrial fibrillation [...] fibrillation Presence of cardiac 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 therapy defibrillator (MASTER YACHT-D) Seizures Syncope Thyroid nodule Type 2 diabetes [...] Last Taken Unknown] flash glucose scanning reader (BrandProject Sanam [address]) #1 ea 08/11/23 [Rx Last Taken Unknown] [...] and non-distended Narrative: She has a 24 Latvian three-way Gaspar catheter indwelling. Continuous bladder irrigation [...] % (Auto) 66.9, Lymph % (Auto) 24.9, [place] % (Auto) 7.2, Eos % (Auto) 0.6, [...] % (Auto) 56.1, Lymph % (Auto) 34.1, [place] % (Auto) 8.1, Eos % (Auto) 1.0, [...] Tatum DO; Dr. Navdeep Bourgeois MD~ Signed [facility] Work Phone: 1([phone]) 384-318204-02-2024 History and physical note Author Navdeep Bourgeois [facility] September 06, 2023 5:32pm Note Date/Time September 06, 2023 5:32 pm [facility] System Medical Records Department [address] [place] [address] H&P Exam - Hospitalist 09/06/23 1637 MR#: [id number] Acct: [id number] Name: VIDHIErnstPITO ANN Rep #:[id number] : 1970 52 From: Navdeep Wade PCP: [...] and leukocyte esterase. H&H10.2/31% which is further [facility] History Atherosclerotic heart disease of [place] coronary artery without angina pectoris Atrial fibrillation [...] fibrillation Presence of cardiac 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 therapy defibrillator (MASTER YACHT-D) Seizures Syncope Thyroid nodule Type 2 diabetes [...] Last Taken Unknown] flash glucose scanning reader (BrandProject Sanam [address]) #1 ea 08/11/23 [Rx Last Taken Unknown] [...] % (Auto) 66.9, Lymph % (Auto) 24.9, [place] % (Auto) 7.2, Eos % (Auto) 0.6, [...] near the bedside, Arnaldo [facility]. After discussion of benefits/risks procedures involved with full code, DNR CC arrest and DNR CC, the patient opted for full code. Patient does want artificial life support including intubation, tube feed, ventilator and/chest compression, central venous catheter, vasopressor and DC shock if needed Total time spent in pray-nw-[id number] encounter in discussion of advanced directive 17 minutes. Laboratory Results 09/06/23 12:30: WBC 7.0, RBC 3.17 L, Hgb 10.2 L, Hct 31.1 L, MCV 98.1, MCH 32.2 H, MCHC 32.8, RDW Std Deviation 51.8 H, RDW Coeff of Tomi 14.8 H, Plt Count 220, MPV 9.8, Immature Gran % (Auto) 0.300, Neut % (Auto) 66.9, Lymph % (Auto) 24.9, [place] % (Auto) 7.2, Eos % (Auto) 0.6, [...] 0 SEEN Charges/Coding Visit Charges Inpatient E&M: 39878 Init Hosp L3 Procedures Hospitalists Procedures: 97213 Advncd Care Plan 30 Min 09/06/23 7800 <Electronically signed by Navdeep Bourgeois MD> Cosigner Signature (if applicable): CC: Dr. Margo Tatum DO; Dr. Navdeep Bourgeois MD~ Signed [facility] Work Phone: 1(289) 591-661204-02-2024 Discharge summary Author Terry Encarnaciono [facility] September 06, 2023 2:58pm Note Date/Time September 06, 2023 11:4 9am [facility] Medical Records Department [address] [place] [address] Emergency Department Summary 09/06/23 MR#: [id number] Acct: [id number] Name: PITO HENDRIX Rep #:[id number] : 1970 52 From: Terry Arzate MD PCP: Dr. Margo Tatum, DO Status:REG ER Location: ED HPI HPI - Female History of Present Illness Chief Complaint: Vag Bleeding Detail of Chief Complaint: Gross hematuria Informant: patient Pain Pain: Negative for Pelvic Pain, Vulvar Pain or Vaginal Pain Current Severity: Mild Maximum Severity: Moderate Worsened by: Movement and [place] Relieved by: Remaining Still, NSAIDS and Tylenol Bleeding Issue: Negative for Vaginal bleeding, Passing clots or Passing tissue Associated Symptoms Associated Symptoms: Positive for Dysuria, Urgency and Hematuria; Negative for Frequency or Missed Period Last known menstrual period: Patient is status post hysterectomy 2003 [facility] Medical History Atherosclerotic heart disease of [place] coronary artery without angina pectoris Atrial fibrillation [...] fibrillation Presence of cardiac 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 therapy defibrillator (MASTER YACHT-D) Seizures Syncope Thyroid nodule Type 2 diabetes mellitus Vomiting Home Medications BD Ultra-Fine [place] Pen Needle 32 gauge x / (pen needle, diabetic) #100 ea 07/29/22 [Rx [...] Last Taken Unknown] flash glucose scanning reader (BrandProject Sanam [address]) #1 ea 08/11/23 [Rx Last Taken Unknown] [...] Std Deviation 51.8 H RDW Coeff of Tmoi 14.8 H Plt Count 220 MPV 9.8 Immature Gran % (Auto) 0.300 Neut % (Auto) 66.9 Lymph % (Auto) 24.9 [place] % (Auto) 7.2 Eos % (Auto) 0.6 [...] Clarity Turbid Urine pH 7.0 Ur Specific Oracle 1.010 Urine Protein 500 H Urine Glucose (UA) 250 H Urine Ketones Negative Urine Occult Blood 250 H Urine Nitrite Negative Urine Bilirubin Negative Urine Urobilinogen Normal Ur Leukocyte Esterase Negative Urine RBC 50-100 SEEN Urine WBC 0 SEEN Ur Squamous Epith Cells 0 SEEN Urine Bacteria 0 SEEN Urine Mucus 0 SEEN Management Discussion w/another healthcare provider: Rolfer (Case was discussed with Dr. Berenice Short. [...] long-term use Disposition Disposition: Acute Care Hospital [facility] What to do if you have Problems For any increased pain, shortness of breath, bleeding, nausea or vomiting, chestpain, or any unexpected problems, contact your Primary Care Provider. Call [facility] ([phone]) or report to the closest Emergency Room. Call 911 if necessary. 09/06/23 1458 <Electronically signed by Terry Arzate MD> Cosigner Signature (if applicable): CC: Dr. Margo Tatum DO ~ Signed [facility] Work Phone: 1(233) 669-328104-02-2024 Discharge summary Author Terry Arzate [facility] September 06, 2023 2:58pm Note Date/Time September 06, 2023 11:4 9am [facility] Medical Records Department [address] [place] [address] Emergency Department Summary 09/06/23 MR#: [id number] Acct: [id number] Name: PITO HENDRIX Rep #:[id number] : 1970 52 From: Terry Arzate MD PCP: Dr. Margo Tatum DO Status:[facility] ER Location: ED HPI HPI - Female History of Present Illness Chief Complaint: Vag Bleeding Detail of Chief Complaint: Gross hematuria Informant: patient Pain Pain: Negative for Pelvic Pain, Vulvar Pain or Vaginal Pain Current Severity: Mild Maximum Severity: Moderate Worsened by: Movement and [place] Relieved by: Remaining Still, NSAIDS and Tylenol Bleeding Issue: Negative for Vaginal bleeding, Passing clots or Passing tissue Associated Symptoms Associated Symptoms: Positive for Dysuria, Urgency and Hematuria; Negative for Frequency or Missed Period Last known menstrual period: Patient is status post hysterectomy 2003 [facility] Medical History Atherosclerotic heart disease of [place] coronary artery without angina pectoris Atrial fibrillation [...] fibrillation Presence of cardiac 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 therapy defibrillator (MASTER YACHT-D) Seizures Syncope Thyroid nodule Type 2 diabetes [...] flash glucose scanning reader (FreeStyle Sanam [address]) #1 ea 08/11/23 [Rx Last Taken Unknown] [...] % (Auto) 66.9 Lymph % (Auto) 24.9 [place] % (Auto) 7.2 Eos % (Auto) 0.6 [...] Clarity Turbid Urine pH 7.0 Ur Specific Oracle 1.010 Urine Protein 500 H Urine Glucose (UA) 250 H Urine Ketones Negative Urine Occult Blood 250 H Urine Nitrite Negative Urine Bilirubin Negative Urine Urobilinogen Normal Ur Leukocyte Esterase Negative Urine RBC 50-100 SEEN Urine WBC 0 SEEN Ur Squamous Epith Cells 0 SEEN Urine Bacteria 0 SEEN Urine Mucus 0 SEEN Management Discussion w/another healthcare provider: Rolfer (Case was discussed with Dr. Berenice Short. [...] long-term use Disposition Disposition: Acute Care Hospital [facility] What to do if you have Problems For any increased pain, shortness of breath, bleeding, nausea or vomiting, chestpain, or any unexpected problems, contact your Primary Care Provider. Call [facility] ([phone]) or report to the closest Emergency Room. Call 911 if necessary. 09/06/23 4727 <Electronically signed by Terry Arzate MD> Cosigner Signature (if applicable): CC: Dr. Margo Tatum DO ~ Signed [facility] Work Phone: 1(529) 368-810003-25-2024 Discharge summary Author Damaris Thibodeaux [facility] August 29, 2023 12:17pm Note Date/Time August 29, 2023 11: 54am [facility] Medical Records Department [address] [place] [address] Discharge Summary 08/29/23 1149 MR#: [id number] Acct: [id number] Name: PITO HENDRIX Rep #:[id number] : 1970 52 From: Damaris Thibodeaux DO PCP: Dr. Margo Tatum DO Status:ADM IN Location: [place] [address] Providers Date of Admission: 08/26/23 Primary Care [...] flash glucose scanning reader (FreeStyle Sanam 2 Lane) #1 ea 08/11/23 Hospital Course Operations None Procedures - (CT abdomen and pelvis) Summary of Care Provided Minutes Spent on Discharge: 39 Hospital Course: Mrs. Quiros is a 52-year-old obese, white female who presented to the emergency department at [facility] on 08/26/2023 with significant hematuria [...] ischemic cardiomyopathy status post cardiac 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 with MASTER YACHT-D CAD HTN HPL PAF History of hypothyroidism [...] tab PO BID (DME) FreeStyle Sanam [address] Misc See Rx Instructions .Route Qty: 1 [...] Self Care Charges/Coding Visit Charges Inpatient E&M: 51740 Disch Hosp >30min 08/29/23 1217 <Electronically signed by Damaris Thibodeaux DO> Cosigner Signature (if applicable): CC: Dr. Berenice Short MD; Dr. Damaris Thibodeaux DO; Dr. Margo Tatum DO~ Signed [facility] Work Phone: 1(947) 535-158503-25-2024 Consult note Author Ynes Singh [facility] August 29, 2023 12:08pm Note Date/Time August 29, 2023 12: 08pm [facility] Medical Records Department [address] [place] [address] Counseling Note - Pharmacy 08/29/23 1208 MR#: [id number] Acct: [id number] Name: PITO HENDRIX Rep #:[id number] : 1970 52 From: Ynes Sinhg PCP: Dr. Margo Tatum DO Status:ADM IN Y Location: [facility] RM731-9 Pharmacy [place] Med Reconciliation Pharmacy Service has performed discharge [...] tab PO BID 10/20/22 flash glucose sensor (Flash Auto Detailingyle Sanam 2 Sensor kit) #2 ea 03/02/23 [...] #2 mL 08/11/23 flash glucose scanning reader (Flash Auto Detailingyle Sanam [address]) #1 ea 08/11/23 08/29/23 1208 <Electronically signed by Ynes Singh> Date _ Ynes Bermudez Signature (if applicable): Date CC: ~ Signed [facility] Work Phone: 1(566) 243-335703-24-2024 Progress note Author Aidan Staples [facility] August 28, 2023 3:44pm Note Date/Time August 28, 2023 3:4 4pm [facility] Medical Records Department [address] [place] [address] Progress Note - Hospitalist 08/28/23 1538 MR#: [id number] Acct: [id number] Name: PITO HENDRIX KAYLIN Rep #:[id number] : 1970 52 From: Aidan Staples DO PCP: Dr. 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) use of anticoagulants (08/26/23) Subjective Subjective [...] / 450 Output Total 1700 / 1700 46130 / 63952 3500 / 3500 Balance -1700 / -1700 -09981.0 / -42503.0 -3050 / -3050 Lab / Micro Data [...] will be given additional potassium #5 paroxysmal E-gbt-knajtdo is on rate limiting medications, apixaban is being held #6 ischemic cardiomyopathy-her last echocardiogram showed a 45% EF, complicates care, medical course, recovery, and prognosis Total clinical time spent by myself addressing the patient's medical issues, reviewing all of her data, and collaborating with patient's care team: 35 minutes Charges/Coding Visit Charges Inpatient E&M: 66983 Subs Hosp L2 08/28/23 1544 <Electronically signed by Aidan Staples DO> Cosigner Signature (if applicable): CC: ~ Signed [facility] Work Phone: 1(460) 631-546203-23-2024 Consult note Author Emiliano Campoverde [facility] August 27, 2023 1:40pm Note Date/Time August 27, 2023 1:4 0pm [facility] Medical Records Department [address] [place] [address] Consultation - Urology 08/27/23 1338 MR#: [id number] Acct: [id number] Name: PITO HENDRIX KAYLIN Rep #:[id number] : 1970 52 From: Emiliano Campoverde MD PCP: Dr. Margo Tatum DO Status:ADM IN Location: [place] 144359-1 Assessment & Plan Assessment/Plan (1) Acute urinary [...] take out the catheter for voiding trial. [facility] Medical History Atherosclerotic heart disease of [place] coronary artery without angina pectoris Atrial fibrillation [...] fibrillation Presence of cardiac 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 therapy defibrillator (MASTER YACHT-D) Seizures Syncope Thyroid nodule Type 2 diabetes [...] Last Taken Unknown] flash glucose scanning reader (BrandProject Sanam [address]) #1 ea 08/11/23 [Rx Last Taken Unknown] [...] % (Auto) 66.1, Lymph % (Auto) 25.5, [place]% (Auto) 6.6, Eos % (Auto) 1.2, Baso [...] % (Auto) 48.2, Lymph % (Auto) 38.4, [place]% (Auto) 11.2 H, Eos % (Auto) 1.8, [...] 21:47 EDT Reading Location ID and State: [facility] / [place] Tel , Service support , 08/27/23 1340 <Electronically signed by Emiliano Campoverde MD> Cosigner Signature (if applicable): CC: Dr. Perlita Gómez MD; Dr. Emiliano Campoverde MD; Dr. Margo Tatum, DO~ Signed [facility] Work Phone: 1(233) 948-316703-23-2024 Progress note Author Aidan Stalpes [facility] August 27, 2023 10:20am Note Date/Time August 27, 2023 10: 20am [facility] Medical Records Department [address] [place] [address] Progress Note - Hospitalist 08/27/23 1012 MR#: [id number] Acct: [id number] Name: PITO HENDRIX Rep #:[id number] : 1970 52 From: Aidan Staples DO PCP: Dr. Margo Tatum DO Status:ADM IN [facility] Reason for Visit Reason for Visit: Diagnoses [...] % (Auto) 66.1, Lymph % (Auto) 25.5, [place]% (Auto) 6.6, Eos % (Auto) 1.2, Baso [...] % (Auto) 48.2, Lymph % (Auto) 38.4, [place]% (Auto) 11.2 H, Eos % (Auto) 1.8, [...] EDT Reading Location ID and State: [address] [place] [address] Tel , Service support , Physical Exam [...] will be given additional potassium #5 paroxysmal R-upg-jogocxs is on rate limiting medications, apixaban is being held #6 ischemic cardiomyopathy-her last echocardiogram showed a 45% EF, complicates care, medical course, recovery, and prognosis Total clinical time spent by myself addressing the patient's medical issues, reviewing all of her data, and collaborating with patient's care team: 35 minutes Charges/Coding Visit Charges Inpatient E&M: 79442 Subs Hosp L2 08/27/23 1020 <Electronically signed by Aidan Staples DO> Cosigner Signature (if applicable): CC: ~ Signed [facility] Work Phone: 1(959) 890-507503-23-2024 History and physical note Author Perlita Gómez [facility] August 26, 2023 11:03pm Note Date/Time August 26, 2023 10: 40pm [facility] Medical Records Department [address] [place] [address] H&P Exam - Hospitalist 08/26/233 MR#: [id number] Acct: [id number] Name: PITO HENDRIX Rep #:[id number] : 1970 52 From: Perlita Gómez MD PCP: Dr. 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 In the ED CBI started. [facility] Medical History (Updated 08/26/23 @ 22:[address] Perlita Gómez MD) Atherosclerotic heart disease of [place] coronary artery without angina pectoris Atrial fibrillation [...] fibrillation Presence of cardiac 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 therapy defibrillator (MASTER YACHT-D) Seizures Syncope Thyroid nodule Type 2 diabetes [...] flash glucose scanning reader (FreeStyle Sanam [address]) #1 ea 08/11/23 [Rx Last Taken Unknown] [...] % (Auto) 66.1, Lymph % (Auto) 25.5, [place]% (Auto) 6.6, Eos % (Auto) 1.2, Baso [...] 21:47 EDT Reading Location ID and State: [facility] / [place] Tel , Service support , Assessment & Plan Assessment/Plan (1) Acute urinary retention: (2) Hematuria: PLAN: Plan The patient is a 52 y/o F w/ PMHx: Obesity, CAD s/p PCI, Hyperthyroidism, PAF, HTN, HLD, HFrEF/Ischemic cardiomyopathy, Chronic low back pain status post insertion nerve stimulator, COPD, Diabetes mellitus type II, Former tobacco use who presents to the [facility] ED on 08/26/23 with history of [...] therapy. #4. HFrEF/ischemic cardiomyopathy: Status post previous MASTER YACHT-D [employer], most recently assessed 07/25/2023, will cautiously [...] 16 minutes. Charges/Coding Visit Charges Inpatient E&M: 78534 Init Hosp L3 Procedures Hospitalists Procedures: 63520 Advncd Care Plan 30 Min 08/26/23 2303 <Electronically signed by Perlita Gómez MD> Cosigner Signature (if applicable): CC: Dr. Perlita Gómez MD; Dr. Margo Tatum DO~ Signed [facility] Work Phone: 1([phone]) 235-511203-23-2024 Discharge summary Author Rell Loera [facility] August 26, 2023 10:41pm Note Date/Time August 26, 2023 7:5 2pm [facility] Medical Records Department [address] [place] [address] Emergency Department Summary 08/26/23 MR#: [id number] Acct: [id number] Name: PITO HENDRIX Rep #:[id number] : 1970 52 From: Rell Loera MD [...] on apixaban for history of atrial fibrillation. [facility] Medical History Atherosclerotic heart disease of [place] coronary artery without angina pectoris Atrial fibrillation [...] fibrillation Presence of cardiac 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 therapy defibrillator (MASTER YACHT-D) Seizures Syncope Thyroid nodule Type 2 diabetes [...] Last Taken Unknown] flash glucose scanning reader (BrandProject Sanam [address]) #1 ea 08/11/23 [Rx Last Taken Unknown] [...] % (Auto) 66.1 Lymph % (Auto) 25.5 [place] % (Auto) 6.6 Eos % (Auto) 1.2 [...] Clarity Turbid Urine pH 7.0 Ur Specific Oracle 1.010 Urine Protein 500 H Urine Glucose [...] 21:47 EDT Reading Location ID and State: [facility] / [place] Tel , Service support , Management Discussion w/another healthcare provider: Hospitalist and Rolfer (urology malini) Discharge Plan Dx/Rx/DC Orders Clinical Impression: Anticoagulated, Hematuria, Acute urinary retention Disposition Disposition: Acute Care Hospital [facility] What to do if you have Problems For any increased pain, shortness of breath, bleeding, nausea or vomiting, chestpain, or any unexpected problems, contact your Primary Care Provider. Call [facility] ([phone]) or report to the closest Emergency Room. Call 911 if necessary. 08/26/231 <Electronically signed by Rell Loera MD> Cosigner Signature (if applicable): CC: Dr. Margo Tatum DO ~ Signed [facility] Work Phone: 1(639) 164-271303-22-2024 Discharge summary Author Rell Loera [facility] August 26, 2023 10:41pm Note Date/Time August 26, 2023 7:5 2pm [facility] Medical Records Department [address] [place] [address] Emergency Department Summary 08/26/23 MR#: [id number] Acct: [id number] Name: PITO HENDRIX Rep #:[id number] : 1970 52 From: Rell Loera MD [...] on apixaban for history of atrial fibrillation. [facility] Medical History Atherosclerotic heart disease of [place] coronary artery without angina pectoris Atrial fibrillation [...] fibrillation Presence of cardiac 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 therapy defibrillator (MASTER YACHT-D) Seizures Syncope Thyroid nodule Type 2 diabetes [...] mg tablet (Entresto) 1 tab PO BID 05/17/23 [History Last Taken Unknown] flash glucose sensor [...] flash glucose scanning reader (FreeStyle Sanam [address]) #1 ea 08/11/23 [Rx Last Taken Unknown] [...] % (Auto) 66.1 Lymph % (Auto) 25.5 [place] % (Auto) 6.6 Eos % (Auto) 1.2 [...] Clarity Turbid Urine pH 7.0 Ur Specific Oracle 1.010 Urine Protein 500 H Urine Glucose [...] Management Discussion w/another healthcare provider: Hospitalist and Rolfer (urology malini) Discharge Plan Dx/Rx/DC Orders Clinical Impression: Anticoagulated, Hematuria, Acute urinary retention Disposition Disposition: Acute Care Hospital [facility] What to do if you have Problems For any increased pain, shortness of breath, bleeding, nausea or vomiting, chestpain, or any unexpected problems, contact your Primary Care Provider. Call [facility] ([phone]) or report to the closest Emergency Room. Call 911 if necessary. 08/26/231 <Electronically signed by Rell Loera MD> Cosigner Signature (if applicable): CC: Dr. Margo Tatum DO ~ Signed [facility] Work Phone: 1(585) 424-942904-17-2023 Hospital Discharge instructions* Discharge Instructions* Iza Paulson [...] Medrol, please using instructed. Please follow-up the tumbling barrel painter after discharge. If your symptoms fail to improve or worsen despite treatment, please follow-up promptly with your PCP or if unable to do so you may return to the emergency department. [facility] Physician Emergency department Note* Rupali Shaw [...] . Rupali Shaw MD, PhD 09/21/22 0147 [facility] Work Phone: 1(407) 152-318404-17-2023 Emergency department Note* Rupali Shaw MD, PhD [...] ER for further evaluation. [facility] Note* Arina Brannon RN [...] patient sent to ER for further evaluation. [facility]03-15-2023 Note* Nursing Notes - Reena Hahn [...] at time of discharge. Reena Hahn RN [facility]03-15-2023 Miscellaneous Notes* Nursing Notes - Reena [...] 1: Location: forearm, anterior, left Device/Lot Number: [id number] catheter system Gauge/Length: 20 gauge;1 1/4 in length Unsuccessful Insertion Attempts: Unsuccessful Attempt Location/Site: Pain Prevention/Patient Tolerance: Removal: Additional Comments: Lumen 2: Lumen 3: Peripheral IV Present on Admission: (Retired/Read Only) Location: (Retired/Read Only) Device: (Retired/Read Only) Gauge/Length: Head Refrigeration Engineer/Lot Number: Unsuccessful Insertion Attempts: (Retired/Read Only) Unsuccessful [...] NSR. Reena Hahn RN documented in this encounterPomerene [facility]03-15-[facility]23 Hospital Discharge instructions* Discharge Instructions* Sabiha Jane APRN-AUTOMATIC CENTRIFUGAL STATION OPERATOR - 08/18/2022 9:58 AM EDT WHAT TO [...] shock. This is not harmful to them. [facility] ([phone]) * Discharge Instr - Activity* FIDELIA Willis [...] Where can you learn more? Go to [email or web address]. * Discharge Instr - Wound Care* FIDELIA [...] skin during body movement. documented in this encounterU [facility]* Nursing Notes - Nicolasa Mullen [...] 1: Location: forearm, anterior, left Device/Lot Number: [id number] catheter system Gauge/Length: 20 gauge;1 1/4 in length Unsuccessful Insertion Attempts: Unsuccessful Attempt Location/Site: Pain Prevention/Patient Tolerance: Removal: Additional Comments: Lumen 2: Lumen 3: Peripheral IV Present on Admission: (Retired/Read Only) Location: (Retired/Read Only) Device: (Retired/Read Only) Gauge/Length: Head Refrigeration Engineer/Lot Number: Unsuccessful Insertion Attempts: (Retired/Read Only) Unsuccessful [...] pain, redness, swelling, or leakage post insertion. [facility]03-15-[facility]23 Note* Nursing Notes - Reena Hahn [...] Tele monitor shows NSR. Reena Hahn RN [facility]03-15-2023 History and physical note* Sabiha Jane, BRADFORD-LIZ - 08/18/2022 8:14 AM EDT Images from the original note were not included. Chief Complaint Ischemic cardiomyopathy HPI Pito Hendrix is a 51 y.o. female with ischemic CM, CAD s/p NV and PCI, HFrEF (30%), DM, HTN, LBBB,COPD and MR. She had an anterior wall NV with LAD stents (05/2021). Her LVEF remains depressed 30% despite GDMT. Endorses NYHA class III symptoms of fatigue, SOB, PND and needs to take frequent breaks with ADLs and 3 pillow orthopnea. Review of EKG noted LBBB (QRS 160ms). She was referred to Dr. Padron who recommended MASTER YACHT-D implant for primary prevention which she presents for today. She reports a few ago noted rapid irregular HR described as pounding out of her chest. She presented to [facility] and underwent stress testing and observation. [...] N/A; Surgeon: Becky Rodriguez MD, PhD;; Location: [facility] MAIN OR APPENDECTOMY CHOLECYSTECTOMY EXPLORATORY LAPAROTOMY [...] - Other Father Referring MD: Bryan Ruano, AUTOMATIC CENTRIFUGAL STATION OPERATOR PCP Margo SAENZ MD: Serafin Padron Anticoagulation: Eliquis Has the patient missed any doses of anticoagulation: 2.5 days When was the last dose taken: 08/15/22 evening dose Previous antiarrythmic medications: None Shared decision tool for primary prevention ICD NYHA Class III Patient on guideline directed therapy for greater than 3 months? yes Pito Hendrix has been evaluated and determined to meet [facility] primary prevention ICD implant criteriadue to: Ischemic dilated cardiomyopathy with LVEF less than or equal to 35% with NYHA class II or III heart failure and post NV greater than 40 days and post PCI [...] III in setting of LBBB- proceed with MASTER YACHT-D for primary prevention. (labs pending) Associated attestation - Serafin Padron MD - 08/18/2022 4:10 PM EDT Discussed procedure with pt and re-addressed risk/benefits. Pt is ready to proceed. Consent signed A and O x 3 Skin W and Dry Proceed with planned [facility] History and physical note* Sabiha Jane, SECURITY SERVICES MANAGER-AUTOMATIC CENTRIFUGAL STATION OPERATOR - 08/18/2022 8:14 AM EDT Images from the original note were not included. Chief Complaint Ischemic cardiomyopathy HPI Pito Hendrix is a 51 y.o. female with ischemic CM, CAD s/p NV and PCI, HFrEF (30%), DM, HTN, LBBB,COPD and MR. She had an anterior wall NV with LAD stents (05/2021). Her LVEF remains depressed 30% despite GDMT. Endorses NYHA class III symptoms of fatigue, SOB, PND and needs to take frequent breaks with ADLs and 3 pillow orthopnea. Review of EKG noted LBBB (QRS 160ms). She was referred to Dr. Padron who recommended MASTER YACHT-D implant for primary prevention which she presents for today. She reports a few ago noted rapid irregular HR described as pounding out of her chest. She presented to [facility] and underwent stress testing and observation. [...] N/A; Surgeon: Becky Rodriguez MD, PhD;; Location: [facility] MAIN OR APPENDECTOMY CHOLECYSTECTOMY EXPLORATORY LAPAROTOMY [...] - Other Father Referring MD: Bryan Ruano, AUTOMATIC CENTRIFUGAL STATION OPERATOR PCP Margo SAENZ MD: Serafin Padron Anticoagulation: Eliquis Has the patient missed any doses of anticoagulation: 2.5 days When was the last dose taken: 08/15/22 evening dose Previous antiarrythmic medications: None Shared decision tool for primary prevention ICD NYHA Class III Patient on guideline directed therapy for greater than 3 months? yes Pito Hendrix has been evaluated and determined to meet [facility] primary prevention ICD implant criteriadue to: Ischemic dilated cardiomyopathy with LVEF less than or equal to 35% with NYHA class II or III heart failure and post NV greater than 40 days and post PCI [...] III in setting of LBBB- proceed with MASTER YACHT-D for primary prevention. (labs pending) Associated attestation - Serafin Padron MD - 08/18/2022 4:10 PM EDT Discussed procedure with pt and re-addressed risk/benefits. Pt is ready to proceed. Consent signed A and O x 3 Skin W and Dry Proceed with planned procedure documented in this encounterOSU [facility] History and physical note Author Dr. Nguyen [facility] August 07, 2022 5:29am Note Date/Time August 06, 2022 9:56 pm [facility] Medical Records Department [address] [place] [address] H&P Exam - Hospitalist 08/06/22 2155 MR#: [id number] Acct: [id number] Name: PITO HENDRIX Rep #:[id number] : 1970 51 From: Patel Nguyen MD PCP: Dr. Margo Tatum, DO Status:ADM HERMINIA Location: [place] [address] HPI - General General Date of Admission: [...] have a pacemaker with defibrillator place at [facility] on 18 August 2022. [facility] Medical History Atherosclerotic heart disease of [place] coronary artery without angina pectoris Atrial fibrillation [...] Last Taken 08/06/22] flash glucose scanning reader (UstreamStyle [address]am [address]) #1 ea 06/09/22 [Rx Last Taken Unknown] [...] % (Auto) 55.6, Lymph % (Auto) 35.2, [place] % (Auto) 6.6, Eos % (Auto) 2.0, [...] pain Place on a monitored bed at [facility] Actual CXR image was independently visualized. No [...] A-fib continued Charges/Coding Visit Charges Inpatient E&M: 65741 Init Hosp L3 08/07/22 0529 <Electronically signed by Patel Nguyen MD> Cosigner Signature (if applicable): CC: Dr. Patel Nguyen MD; Dr. Margo Tatum, DO~ Signed [facility] Work Phone: 1(861) 537-798103-04-[address] Ortez [facility] August 07, 2022 12:09am Note Date/Time August 06, 2022 7:09 pm [facility] Medical Records Department [address] [place] [address] Emergency Department Summary 08/06/22 MR#: [id number] Acct: [id number] Name: PITO HENDRIX Rep #:[id number] : 1970 51 From: Lolis HOPPER PCP: Dr. Margo Tatum DO Status:ADM HERMINIA Location: [address] <WARD Lyle - Last Filed: 08/06/22 [...] clots. PMH includes CHF, COPD, diabetes mellitus. [facility] <WARD Lyle - Last Filed: 08/06/22 21:38> [facility] Medical History (Updated 08/06/22 @ 23:23 by Shanta Wagoner) Atherosclerotic heart disease of [place] coronary artery without angina pectoris Atrial fibrillation [...] Last Taken 08/06/22] flash glucose scanning reader (UstreamStyle [address]) #1 ea 06/09/22 [Rx Last Taken Unknown] [...] % (Auto) 55.6 Lymph % (Auto) 35.2 [place] % (Auto) 6.6 Eos % (Auto) 2.0 [...] Ortez, DO - Last Filed: 08/06/22 23:53> [facility] Lab Data Labs: Laboratory Results - last 24 hr 08/06/22 08/06/22 08/06/22 18:00 18:00 20:26 WBC 6.4 RBC 4.26 Hgb 13.6 Hct 41.2 MCV 96.7 MCH 31.9 MCHC 33.0 RDW Std Deviation 47.3 H RDW Coeff of Tomi 13.4 Plt Count 198 MPV 10.2 Immature Gran % (Auto) 0.300 Neut % (Auto) 55.6 Lymph % (Auto) 35.2 [place] % (Auto) 6.6 Eos % (Auto) 2.0 [...] a left bundle branch block pattern noted. VT interval was normal at 188. QRS interval was slightly prolonged at 160 milliseconds. QTc interval was slightly prolonged at 504 ms. [place] was borderline left axis deviation at - [...] of breath Disposition Disposition: Acute Care Hospital [facility] Discharge Date/Time: 08/06/22 22:39 What to do if you have Problems For any increased pain, shortness of breath, bleeding, nausea or vomiting, chestpain, or any unexpected problems, contact your Primary Care Provider. Call [facility] ([phone]) or report to the closest Emergency Room. Call 911 if necessary. 08/06/222138 <Electronically signed by Lolis HOPPER> Cosigner Signature (if applicable): 08/07/22 0009 <Electronically signed by Arjun Ortez DO> CC: Dr. Margo Tatum, ~ Signed [facility] Work Phone: 1(280) 264-570412-03-2022 Hospital Discharge instructions Additional Instructions Please soak thumb in warm water 2-3 times a day for 10-15 mins for the next several days. Keep area clean, dry, and covered. Please return if you begin to show signs of infection such as increased redness, increased swelling, or fever develops.[facility] Work Phone: [phone]) 841-292302-11-2022 NoteHNO ID: [id number] Author: Jeison Ponce APRN.AUTOMATIC CENTRIFUGAL STATION OPERATOR Service: ? Author Type: Nurse Practitioner Type: [...] due to increased w (more content not included)...[facility]02-03-2022 NoteHNO ID: [id number] Author: Max Live APRN.AUTOMATIC CENTRIFUGAL STATION OPERATOR Service: ? Author Type: Nurse Practitioner Type: [...] ESOPHAGOGASTRODUODENOSCOPY TRANSORAL DIAGNOSTIC 01/09/2019 EGD - HYSTERECTOMY 2003 w/ unilateral oophorectomy - LAMINECTOMY W/O FFD 1/ VERT SEG LUMBAR 2011 - S SPINAL [...] Patient agreeable to treatment plan. Max Live APRN.[facility]12-14-2021 Evaluation note* Diagnosis Onset Date Resolution Status Atherosclerotic heart diseas e of [place] coronary artery without angina pectoris acute Cardiomyopathy, [...] chronic Left bundle branch block (LBBB) chronic [facility] Work Phone: 1(279) 613-746412-14-2021 Evaluation note* Diagnosis Onset Date Resolution Status [...] Hyperthyroidism chronic Left bundle branch block (LBBB) [facility] Work Phone: [phone]) 634-444012-14-2021 Evaluation note* Diagnosis Onset Date Resolution Status [...] Left bundle branch block (LBBB) chronic Syncope [facility] Work Phone: [phone] 179-137412-14-2021 Evaluation note* Diagnosis Onset Date Resolution Status [...] Left bundle branch block (LBBB) chronic Syncope [facility] Work Phone: [phone]) 438-703612-14-2021 Evaluation note* Diagnosis Onset Date Resolution Status [...] chronic Thyrotoxicosis chronic Type 2 diabetes mellitus [facility] Work Phone: [phone] 221-856312-14-2021 Evaluation note* Diagnosis Onset Date Resolution Status [...] acu te Multiple thyroid nodules acu te [facility] Work Phone: [phone]) 982-998312-14-2021 Evaluation note* Diagnosis Onset Date Resolution Status [...] chronic Obesity chronic Type 2 diabetes mellitus [facility] Work Phone: [phone]) [phone] Evaluation note* Diagnosis Onset Date Resolution Status [...] fraction) chronic Left bundle branch block (LBBB) [facility] Work Phone: [phone]) 284-351812-14-2021 Evaluation note* Diagnosis Onset Date Resolution Status Hyperthyroidism chronic Obesity chronic Type 2 diabetes mellitus [facility] on History of coronary artery stent placement May 192020 acute HFrEF (heart failure with re duced ejection fraction) chronic Left bundle branch block (LBBB) chronic Cardiomyopathy, ischemic acu te Paroxysmal atrial fibrillation acute Presence of cardiac resynchr onization therapy defibrillator (MASTER YACHT-D) acute HFrEF (heart failure with re duced ejection fraction) chronic Left bundle branch block (LBBB) chronic Cardiomyopathy, ischemic acu te Presence of cardiac resynchr onization therapy defibrillator (MASTER YACHT-D) acute HFrEF (heart failure with re duced ejection fraction) chronic Left bundle branch block (LBBB) chronic Cardiomyopathy, ischemic acu te History of coronary artery stent placement May 192020 acute Palpitations acute Presence of cardiac resynchr onization therapy defibrillator (MASTER YACHT-D) acute Benign hypertension chronic Hyperlipidemia chronic Left bundle branch block (LBBB) chronic Hyperthyroidism chronic Obesity chronic Type 2 diabetes mellitus [facility] Work Phone: [phone] 536-884712-14-2021 Evaluation note* Diagnosis Onset Date Resolution Status History of coronary artery stent placement May 192020 acute HFrEF (heart failure with re duced ejection fraction) chronic Left bundle branch block (LBBB) chronic Cardiomyopathy, ischemic acu te Paroxysmal atrial fibrillation acute Presence of cardiac resynchr onization therapy defibrillator (MASTER YACHT-D) acute HFrEF (heart failure with re duced ejection fraction) chronic Left bundle branch block (LBBB) chronic Cardiomyopathy, ischemic acu te Presence of cardiac resynchr onization therapy defibrillator (MASTER YACHT-D) acute HFrEF (heart failure with re duced ejection fraction) chronic Left bundle branch block (LBBB) chronic Cardiomyopathy, ischemic acu te History of coronary artery stent placement May 192020 acute Palpitations acute Presence of cardiac resynchr onization therapy defibrillator (MASTER YACHT-D) acute Benign hypertension chronic Hyperlipidemia chronic Left bundle branch block (LBBB) chronic Hyperthyroidism chronic Obesity chronic Type 2 diabetes mellitus [facility] Work Phone: Discharge summary Author Dr. Mathew [facility] August 07, 2022 5:02pm Note Date/Time August 07, 2022 4:38 pm [facility] Medical Records Department [address] [place] [address] Instructions for Home/Discharge Instructions 08/07/22 1637 MR#: [id number] Acct: [id number] Name: PITO HENDRIX Rep #:[id number] : 1970 51 From: Suma Mathew MD [...] Restrictions: -Continue home medications -Please call your ms sql server developer office upon discharge to schedule hospital follow-up [...] q 14 days (DME) [employer] [address] Misc See Rx Instructions .Route Qty: 1 [...] to schedule your hospital follow-up appointment (ph [phone])) Margo Tatum DO [Primary Care Provider] - Within 1 Week Disposition Disposition (needs filled in before D/C Order can be placed): Home, Self Care 08/07/221701<Electronically signed by Suma Mathew MD>Suma Mathew MD CC: Dr. Patel Nguyen MD; Dr. Margo Tatum DO ~ Signed [facility] Work Phone: Discharge summary Author Dr. Mathew [facility] August 07, 2022 5:14pm Note Date/Time August 07, 2022 5:05 pm [facility] Medical Records Department [address] [place] [address] Discharge Summary 08/07/221701 MR#: [id number] Acct: [id number] Name: PITO HENDRIX Rep #:[id number] : 1970 51 From: Suma Mathew MD PCP: Dr. Margo Tatum DO Status:ADM HERMINIA Location: [place] [address] Providers Date of Admission: 08/06/22 Date of [...] flash glucose scanning reader (FreeStyle [address]) #1 ea 06/09/22 flash glucose sensor (FreeStyle [...] on methimazole, diabetes mellitus who presented to [facility] 08/06/2022 with sharp chest pain [...] to have a pacemaker with defibrillator at [facility] on August 18, 2022. She was admitted for echocardiogram and stress test. Stress test showed no myocardial perfusion changes considered diagnostic for associated stress-induced myocardial ischemia. Echo largely unchanged from previous. Patient overall feeling better this evening and is comfortable with discharge with outpatient follow-up. Discharge instructions as followed: -Continue home medications -Please call your ms sql server developer office upon discharge to schedule hospital follow-up [...] % (Auto) 55.6, Lymph % (Auto) 35.2, [place] % (Auto) 6.6, Eos % (Auto) 2.0, [...] % (Auto) 49.3, Lymph % (Auto) 41.0, [place] % (Auto) 7.2, Eos % (Auto) 2.1, [...] Restrictions: -Continue home medications -Please call your ms sql server developer office upon discharge to schedule hospital follow-up [...] q 14 days (DME) Free[employer] [address] Misc See Rx Instructions .Route Qty: 1 [...] Self Care Charges/Coding Visit Charges Inpatient E&M: 32972 Disch Hosp >30min 08/07/22 1714 <Electronically signed by Suma Mathew MD> Cosigner Signature (if applicable): CC: Dr. Margo Tatum DO; Dr. Suma Mathew MD~ Signed [facility] Work Phone: Discharge summary [facility] 10, 2023 10:56am Note Date/Time September 10, 2023 10:4 3am [facility] Medical Records Department [address] [place] [address] Instructions for Home/Discharge Instructions 09/10/23 1042 MR#: [id number] Acct: [id number] Name: PITO HENDRIX Rep #:[id number] : 1970 52 From: Jamie nolasco DO PCP: Dr. Margo Malys, DO Status:ADM IN Discharge Instructions Diet Discharge [...] unit subcut DAILY (DME) FreeStyle [address] Misc See Rx Instructions .Route Qty: 1 [...] Ultra-Fine [place] Pen Needle] 32 gauge x /32 needle See Rx Instructions .Route Qty: 100 [...] DO; Dr. Navdeep Bourgeois MD ~ Signed [facility] Work Phone: Discharge summary Author Damaris Thibodeaux [facility] Note Date/Time September 11, 2024 4:20 pm [facility] Medical Records Department [address] [place] [address] Discharge Summary 09/11/24 1601 MR#: [id number] Acct: [id number] Name: PITO HENDRIX Rep #:[id number] : 1970 53 From: Damaris Thibodeaux DO PCP: Dr. Margo Tatum DO Status:ADM IN Location: [facility] [id number] Providers Date of Admission: 09/09/24 Date [...] #360 TABLETS 06/09/23 blood-glucose meter,continuous (Dexcom G7 Seo Expert) #1 ea 10/10/23 apixaban 5 mg tablet [...] history presented to the emergency department at [facility] on 09/09/2024 with chief complaint [...] home oral agents and follow-up with her monotype caster this previous be recommended. Blood sugars were [...] therapy Acute exacerbation of COPD-resolved Transient hypotension-resolved [id number] Paroxysmal atrial fibrillation Chronic LBBB History of [...] by mouth once daily (DME) Dexcom G7 Seo Expert Misc See Rx Instructions .Route Qty: 1 [...] to their follow-up appointment) Bryan Mitchell NP, BAD WORK GATHERER-C [Med Staff - Adv Practice Prof] - Within 1 Month (Please call and get an appointment to be seen by cardiology within the next 2 to 4 weeks) Disposition Disposition (needs filled in before D/C Order can be placed): Home, Self Care Charges/Coding Visit Charges Inpatient E&M: 59064 Disch Hosp >30min 09/11/24 1620 <Electronically signed by Damaris Thibodeaux DO> Cosigner Signature (if applicable): CC: CARMEN Tom; OLS CARMEN Mitchell; Dr. Damaris Thibodeaux DO; Dr. Margo Tatum DO~ Signed [facility] Work Phone: Evaluation note* Diagnosis Onset Date Resolution Status Atherosclerotic heart diseas e of [place] coronary artery without angina pectoris acute History of coronary artery stent placement acute Sleep apnea acute Type 2 diabetes mellitus acu te Benign hypertension chronic HFrEF (heart failure with reduced ejection fraction) chronic Hyperlipidemia chronic Left bundle branch block (LBBB) chronic Non-ischemic cardiomyopathy chronic Obesity chronic Non-ST elevation NV (NSTEMI) resolved Nonobstructive atherosclerosis of coronary artery resolved Atherosclerotic heart diseas e of [place] coronary artery without angina pectoris acute Cardiomyopathy, ischemic acu te History of coronary artery stent placement acute Type 2 diabetes mellitus acu te Benign hypertension chronic HFrEF (heart failure with reduced ejection fraction) chronic Hyperlipidemia chronic Obesity chronic Non-ST elevation NV (NSTEMI) resolved Atherosclerotic heart diseas e of [place] coronary artery without angina pectoris acute Benign hypertension chronic Hyperlipidemia chronic Non-ischemic cardiomyopathy chronic Acute dehydration resolved Acute kidney injury resolved Bradycardia resolved Chest pain resolved Hyponatremia resolved Near syncope resolved Acute respiratory failure ac [place] Congestive heart failure acu te Difficult intubation acute Type 2 diabetes mellitus acu te Left bundle branch block (LBBB) chronic [facility] Work Phone: Evaluation note* Diagnosis Onset Date Resolution Status Atherosclerotic heart diseas e of [place] coronary artery without angina pectoris acute History of coronary artery stent placement acute Sleep apnea acute Type 2 diabetes mellitus acu te Benign hypertension chronic HFrEF (heart failure with reduced ejection fraction) chronic Hyperlipidemia chronic Left bundle branch block (LBBB) chronic Non-ischemic cardiomyopathy chronic Obesity chronic Non-ST elevation NV (NSTEMI) resolved Nonobstructive atherosclerosis of coronary artery resolved Atherosclerotic heart diseas e of [place] coronary artery without angina pectoris acute Cardiomyopathy, ischemic acu te History of coronary artery stent placement acute Type 2 diabetes mellitus acu te Benign hypertension chronic HFrEF (heart failure with reduced ejection fraction) chronic Hyperlipidemia chronic Obesity chronic Non-ST elevation NV (NSTEMI) resolved Atherosclerotic heart diseas e of [place] coronary artery without angina pectoris acute Benign hypertension chronic Hyperlipidemia chronic Non-ischemic cardiomyopathy chronic Acute dehydration resolved Acute kidney injury resolved Bradycardia resolved Chest pain resolved Hyponatremia resolved Near syncope resolved Acute respiratory failure ac [place] Atherosclerotic heart diseas e of [place] coronary artery without angina pectoris acute Cardiomyopathy, ischemic acu te Congestive heart failure acu te Difficult intubation acute History of coronary artery stent placement acute Non-ST elevation (NSTEMI) myocardial infarction acute Type 2 diabetes mellitus acu te Benign hypertension chronic HFrEF (heart failure with reduced ejection fraction) chronic Hyperlipidemia chronic Left bundle branch block (LBBB) chronic Non-ischemic cardiomyopathy [facility] Work Phone: Evaluation note* Diagnosis Onset Date Resolution Status Atherosclerotic heart diseas e of [place] coronary artery without angina pectoris acute Cardiomyopathy, ischemic acu te History of coronary artery stent placement acute Type 2 diabetes mellitus acu te Benign hypertension chronic HFrEF (heart failure with reduced ejection fraction) chronic Hyperlipidemia chronic Obesity chronic Non-ST elevation [place] (NSTEMI) resolved Atherosclerotic heart diseas e of [place] coronary artery without angina pectoris acute Benign hypertension chronic Hyperlipidemia chronic Non-ischemic cardiomyopathy chronic Acute dehydration resolved Acute kidney injury resolved Bradycardia resolved Chest pain resolved Hyponatremia resolved Near syncope resolved Acute respiratory failure ac [place] Atherosclerotic heart diseas e of [place] coronary artery without angina pectoris acute Cardiomyopathy, ischemic acu te Congestive heart failure acu te Difficult intubation acute History of coronary artery stent placement acute Non-ST elevation (NSTEMI) myocardial infarction acute Type 2 diabetes mellitus acu te Benign hypertension chronic HFrEF (heart failure with reduced ejection fraction) chronic Hyperlipidemia chronic Left bundle branch block (LBBB) chronic Non-ischemic cardiomyopathy [facility] Work Phone: Evaluation note* Diagnosis Onset Date Resolution Status Acute dehydration resolved Acute kidney injury resolved Bradycardia resolved Chest pain resolved Hyponatremia resolved Near syncope resolved Atherosclerotic heart diseas e of [place] coronary artery without angina pectoris acute Cardiomyopathy, [...] chronic Left bundle branch block (LBBB) chronic [facility] Work Phone: Evaluation note* Diagnosis Other cardiomyopathy Other cardiomyopathy [facility] Left arm pain- Primary Pain in limb documented in this [facility] Diagnosis Onset Date Resolution Status Cardiomyopathy, ischemic acu te Paroxysmal atrial fibrillation acute Presence of cardiac resynchr onization therapy defibrillator (MASTER YACHT-D) acute HFrEF (heart failure with re duced ejection fraction) chronic Left bundle branch block (LBBB) chronic Cardiomyopathy, ischemic acu te Presence of cardiac resynchr onization therapy defibrillator (MASTER YACHT-D) acute HFrEF (heart failure with re duced ejection fraction) chronic Left bundle branch block (LBBB) chronic Cardiomyopathy, ischemic acu te Palpitations acute Presence of cardiac resynchr onization therapy defibrillator (MASTER YACHT-D) acute Benign hypertension chronic History of coronary artery stent placement May 192020 chronic Hyperlipidemia chronic Left bundle branch block (LBBB) chronic Hyperthyroidism chronic Obesity chronic Type 2 diabetes mellitus chr onic Cardiomyopathy, ischemic acu te Palpitations acute Presence of cardiac resynchr onization therapy defibrillator (MASTER YACHT-D) acute Benign hypertension chronic History of coronary artery stent placement May 192020 chronic Hyperlipidemia chronic Left bundle branch block (LBBB) [facility] Work Phone: Evaluation note* Diagnosis Onset Date Resolution Status Hyperthyroidism chronic Obesity chronic Type 2 diabetes mellitus chr onic Cardiomyopathy, ischemic acu te Dyspnea on exertion acute Palpitations acute Presence of cardiac resynchr onization therapy defibrillator (MASTER YACHT-D) acute Benign hypertension chronic History of coronary artery stent placement May 192020 chronic Hyperlipidemia chronic Left bundle branch block (LBBB) chronic Benign hypertension chronic Hyperthyroidism chronic Obesity chronic Type 2 diabetes mellitus chr onic [facility] Work Phone: Evaluation note* Diagnosis Onset Date Resolution Status Benign hypertension chronic Hyperthyroidism chronic Obesity chronic Type 2 diabetes mellitus chr onic Multiple thyroid nodules acu te [facility] Work Phone: Evaluation note* Diagnosis Onset Date Resolution Status Benign hypertension chronic Hyperthyroidism chronic Obesity chronic Type 2 diabetes mellitus chr onic Multiple thyroid nodules acu te Benign hypertension chronic Hyperthyroidism chronic Obesity chronic Type 2 diabetes mellitus [facility] Work Phone: Evaluation note* Diagnosis Onset Date Resolution Status Benign hypertension chronic Obesity chronic Type 2 diabetes mellitus chr onic Multiple thyroid nodules acu te Benign hypertension chronic Obesity chronic Type 2 diabetes mellitus chr onic Acute urinary retention acut e Anticoagulated acute Hematuria acute [facility] Work Phone: Evaluation note* Diagnosis [...] chronic Obesity chronic Type 2 diabetes mellitus [facility] Work Phone: Evaluation note* Diagnosis Onset Date [...] chronic Obesity chronic Type 2 diabetes mellitus [facility] Work Phone: History and physical note Author Perlita Gómez [facility] August 26, 2023 11:03pm Note Date/Time August 26, 2023 10: 40pm [facility] Medical Records Department [address] [place] [address] H&P Exam - Hospitalist 08/26/236 MR#: [id number] Acct: [id number] Name: PITO HENDRIX KAYLIN Rep #:[id number] : 1970 52 From: Perlita Gómez MD PCP: Dr. 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 In the ED CBI started. [facility] Medical History (Updated 08/26/23 @ 22:[address] Perlita Gómez MD) Atherosclerotic heart disease of [place] coronary artery without angina pectoris Atrial fibrillation [...] fibrillation Presence of cardiac 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 therapy defibrillator (MASTER YACHT-D) Seizures Syncope Thyroid nodule Type 2 diabetes [...] flash glucose scanning reader ([employer] [address]) #1 ea 08/11/23 [Rx Last Taken Unknown] [...] % (Auto) 66.1, Lymph % (Auto) 25.5, [place]% (Auto) 6.6, Eos % (Auto) 1.2, Baso [...] EDT Reading Location ID and State: [address] [place] [address] Tel , Service support , Assessment & Plan Assessment/Plan (1) Acute urinary retention: (2) Hematuria: PLAN: Plan The patient is a 52 y/o F w/ PMHx: Obesity, CAD s/p PCI, Hyperthyroidism, PAF, HTN, HLD, HFrEF/Ischemic cardiomyopathy, Chronic low back pain status post insertion nerve stimulator, COPD, Diabetes mellitus type II, Former tobacco use who presents to the [facility] ED on 08/26/23 with history of [...] therapy. #4. HFrEF/ischemic cardiomyopathy: Status post previous MASTER YACHT-D intelloCut, most recently assessed 07/25/2023, will cautiously hydrate [...] 16 minutes. Charges/Coding Visit Charges Inpatient E&M: 35033 Init Hosp L3 Procedures Hospitalists Procedures: 83149 Advncd Care Plan 30 Min 08/26/23 2303 <Electronically signed by Perlita Gómez MD> Cosigner Signature (if applicable): CC: Dr. Perlita Gómez MD; Dr. Margo Tatum, DO~ Signed [facility] Work Phone: History and physical note Author Navdeep Bourgeois [facility] September 06, 2023 5:32pm Note Date/Time September 06, 2023 5:32 pm [facility] Medical Records Department [address] [place] [address] H&P Exam - Hospitalist 09/06/23 1637 MR#: [id number] Acct: [id number] Name: PITO HENDRIX Rep #:[id number] : 1970 52 From: Navdeep Wade PCP: Dr. Margo Tatum, Status:REG ER Location: ED HPI - General General Date of Admission: 09/06/23 Date of Service: 09/06/23 Chief Complaint: Sudden onset of hematuria today in the morning. HPI Narrative IPTO HENDRIX, is a 52 F who was [...] and leukocyte esterase. H&H10.2/31% which is further [facility] Medical History Atherosclerotic heart disease of [place] coronary artery without angina pectoris Atrial fibrillation [...] fibrillation Presence of cardiac 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 therapy defibrillator (MASTER YACHT-D) Seizures Syncope Thyroid nodule Type 2 diabetes [...] Last Taken Unknown] flash glucose scanning reader ([employer] [address]) #1 ea 08/11/23 [Rx Last Taken Unknown] [...] % (Auto) 66.9, Lymph % (Auto) 24.9, [place] % (Auto) 7.2, Eos % (Auto) 0.6, [...] near the bedside, Arnaldo is [facility]. After discussion of benefits/risks procedures involved with full code, DNR CC arrest and DNR CC, the patient opted for full code. Patient does want artificial life support including intubation, tube feed, ventilator and/chest compression, central venous catheter, vasopressor and DC shock if needed Total time spent in [id number] encounter in discussion of advanced directive 17 minutes. Laboratory Results 09/06/23 12:30: WBC 7.0, RBC 3.17 L, Hgb 10.2 L, Hct 31.1 L, MCV 98.1, MCH 32.2 H, MCHC 32.8, RDW Std Deviation 51.8 H, RDW Coeff of Tomi 14.8 H, Plt Count 220, MPV 9.8, Immature Gran % (Auto) 0.300, Neut % (Auto) 66.9, Lymph % (Auto) 24.9, [place] % (Auto) 7.2, Eos % (Auto) 0.6, [...] 0 SEEN Charges/Coding Visit Charges Inpatient E&M: 34794 Init Hosp L3 Procedures Hospitalists Procedures: 27362 Advncd Care Plan 30 Min 09/06/23 1732 <Electronically signed by Navdeep Bourgeois MD> Cosigner Signature (if applicable): CC: Dr. Margo Tatum, DO; Dr. Navdeep Bourgeois MD~ Signed [facility] Work Phone: Hospital Discharge instructions Additional Instructions CAT scans unremarkable. Labs are normal. Ice to abdominal wall. Tylenol for pain. Follow-up if not improving.[facility] Work Phone: Hospital Discharge instructionsAdditional Instructions I am not sure what is causing your chest pain. We have ruled out dangerous causes like heart attacks, blood clots, aortic dissection, or pneumonia. I recommend you follow-up with your primary care doctor or ms sql server developer next week. If symptoms worsen come back to the ER. [facility] Work Phone: Reason for referral (narrative)No reason for referral information [facility] Work Phone: Reason for visit Narrative* Auth/Cert Specialty Diagnoses / Procedures Referred By Contac t Referred To Contact Diagnoses Other cardiomyopathy Other cardiomyopathy [I42.8] Procedures VT INSJ/RPLCMT PERM DFB W/TRNSVNS LDS 1/DUAL CHMBR ICD SCHED INSERT BIV DEVICE AND LEADS (74688, [id number]) Serafin Padron MD [address] [place] [address] [facility] [address] [place] [address] Referral ID Status Reason Start Date Expiration Date Visits Re quested Visits Authorized [id number] 1 1 [facility] Summary Purpose Family History Relationship Condition Age at Onset Recorded Date/T pro father Myocardial infarction Unknown Malignant neoplasm Unknown Exposure to Agent [place] Unknown Diabetes mellitus Unknown sister Diabetes mellitus Unknown Chronic obstructive pulmonary disease Unk nown Relationship Condition Age at Onset Recorded Date/T pro father Myocardial infarction Unknown Malignant neoplasm Unknown Exposure to Agent [place] Unknown Diabetes mellitus Unknown sister Diabetes mellitus Unknown Chronic obstructive pulmonary disease Unk nown mother Cerebrovascular accident (CVA) Unknown Hypertension Unknown Advance Directives Advance Directive Response Recorded Date/ Time Name of Medical Power of Rn Homecare chance & klaus dave May 19, 2021 1:29am Name of Medical Power of Rn Homecare Dani Cantrell, Chance Dave, and Aj Ashley May 23, 2021 12:38am Advance Directives on File Yes 2021 11:17am Name of Medical Power of Rn Homecare indra garcia June 04, 2021 2:02pm Name of Medical Power of Rn Homecare Chance and Klaus Ashley July 17, 2021 4:55pm Advance Directives No June 19, 2017 8:43am Living Will No September 08, 2021 8:35pm Power of Rn Homecare No September 08 8:35pm Advance Directive Response Recorded Date/ Time Name of Medical Power of Rn Homecare chance & klaus ashley May 19, 2021 1:29am Name of Medical Power of Rn Homecare Dani Cantrell, Chance Dave, and Aj Ashley May 23, 2021 12:38am Advance Directives on File Yes Junmarcellus 2021 11:17am Name of Medical Power of Rn Homecare indra garcia June 04, 2021 2:02pm Name of Medical Power of Rn Homecare Chance and Klaus Ashley July 17, 2021 4:55pm Advance Directives No June 19, 2017 8:43am Living Will No September 16, 2021 8:52pm Power of Rn Homecare Yes September 16 8:52pm Advance Directive Response Recorded Date/ Time Name of Medical Power of Rn Homecare Dani Mackaycal, Chance Ashley, and Aj Ashley May 23, 2021 12:38am Advance Directives on File Yes 2021 11:17am Name of Medical Power of Rn Homecare indra [email or web address] June 04, 2021 2:02pm Name of Medical Power of Rn Homecare Chance and Klaus Ashley July 17, 2021 4:55pm Name of Medical Power of Rn Homecare dani lopezcindy September 16, 2021 8:52pm Advance Directives No June 19, 2017 8:43am Living Will Yes September 20, 2021 7:13pm Power of Rn Homecare Yes September 20 7:13pm Advance Directive Response Recorded Date/ Time Name of Medical Power of Rn Homecare Chance and Klaus Ashley July 17, 2021 4:55pm Name of Medical Power of Rn Homecare dani lopezcindy September 16, 2021 8:52pm Advance Directives No June 19, 2017 8:43am Living Will Yes September 20, 2021 7:13pm Power of Rn Homecare Yes September 20 7:13pm Advance Directive Response Recorded Date/ Time Name of Medical Power of Rn Homecare Chance and Klaus Ashley July 17, 2021 4:55pm Name of Medical Power of Rn Homecare dani wagnerbreanna September 16, 2021 8:52pm Name of Medical Power of Rn Homecare toby salter September 20, 2021 7:13pm Advance Directives No June 19, 2017 8:43am Living Will No November 06, 2021 6 :25pm Power of Rn Homecare No November 06, 2021 6:25pm Advance Directive Response Recorded Date/ Time Name of Medical Power of Rn Homecare dani wagnerkassandra stewart September 16, 2021 8:52pm Name of Medical Power of Rn Homecare toby salter September 20, 2021 7:13pm Advance Directives No June 19, 2017 8:43am Living Will Yes November 17, 2021 4:45am Power of Rn Homecare Yes November 17 4:45am Advance Directive Response Recorded Date/ Time Name of Medical Power of Rn Homecare dani November 17, 2021 4:45am Name of Medical Power of Rn Homecare DANI STEWART January 24, 2022 8:27pm Advance Directives No February 2:11pm Living Will Yes February 26, 2022 2:11pm Power of Rn Homecare Yes February 2:11pm Advance Directive Response Recorded Date/ Time Name of Medical Power of Rn Homecare DANI STEWART January 24, 2022 8:27pm Advance Directives No February 2:11pm Living Will No April 05 4:06pm Power of Rn Homecare No April 05, 2022 4:06pm Advance Directive Response Recorded Date/ Time Name of Medical Power of Rn Homecare DANI STEWART January 24, 2022 7:27pm Advance Directives No February 1:11pm Living Will No April 05 3:06pm Power of Rn Homecare No April 05, 2022 3:06pm Advance Directive Response Recorded Date/ Time Name of Medical Power of Rn Homecare DANI STEWART January 24, 2022 7:27pm Advance Directives No February 1:11pm Living Will No May 08 12:43pm Power of Rn Homecare No May 08, 2022 12:43pm Advance Directive Response Recorded Date/ Time Advance Directives No February 1:11pm Living Will No May 08 12:43pm Power of Rn Homecare No May 08, 2022 12:43pm Advance Directive Response Recorded Date/ Time Advance Directives No February 1:11pm Living Will No June 30 11:24am Power of Rn Homecare No June 30, 2022 11:24am Advance Directive Response Recorded Date/ Time Name of Medical Power of Rn Homecare Toby (Dani) August 06, 2022 6:03pm Advance Directives No February 1:11pm Living Will Yes August 06, 2022 6:03pm Power of Rn Homecare Yes August 06 6:03pm Advance Directive Response Recorded Date/ Time Name of Medical Power of Rn Homecare Toby (Dani) August 06, 2022 11:17pm Advance Directives No February 1:11pm Living Will Yes August 06, 2022 11:17pm Power of Rn Homecare Yes August 06 11:17pm Latest Code Status on File Code Status Date Activated Date Inactivated Comments Full Code 08/18/2022 1:24 PM Code Status History Code Status Date Activated Date Inactivated Comments Full Code 01/01/2012 1:01 AM 01/11/2012 6:36 PM Full Code-Unverified 12/10/2011 11:37 PM 12/17/2011 8:56 PM Advance Directive Response Recorded Date/ Time Name of Medical Power of Rn Homecare Toby (Dani) August 07, 2022 12:17am Advance Directives No February 2:11pm Living Will No September 06, 2022 4:45am Power of Rn Homecare No September 06 4:45am Advance Directive Response Recorded Date/ Time Name of Medical Power of Rn Homecare Toby (Dani) August 07, 2022 12:17am Name of Medical Power of Rn Homecare RICHARD M. October 07, 2022 3:23pm Advance Directives No February 2:11pm Living Will Yes October 07, 2022 3: 23pm Power of Rn Homecare Yes October 07, 2022 3:23pm Advance Directive Response Recorded Date/ Time Name of Medical Power of Rn Homecare Toby (Dani) August 07, 2022 12:17am Name of Medical Power of Rn Homecare RICHARD M. October 07, 2022 3:23pm Advance Directives No February 2:11pm Living Will No October 18, 2022 1 :08pm Power of Rn Homecare No October 18, 2022 1:08pm Advance Directive Response Recorded Date/ Time Name of Medical Power of Rn Homecare RICHARD M. October 07, 2022 3:23pm Advance Directives No February 2:11pm Living Will No October 18, 2022 1 :08pm Power of Rn Homecare No October 18, 2022 1:08pm Advance Directive Response Recorded Date/ Time Name of Medical Power of Rn Homecare mom May 18, 2023 9:47am Advance Directives No February 1:11pm Living Will Yes May 18, 023 9:47am Power of Rn Homecare Yes May 18, 2023 9:47am Advance Directive Response Recorded Date/ Time Name of Medical Power of Rn Homecare mom May 18, 2023 10:47am Advance Directives No February 2:11pm Living Will No August 02 024 10:54am Power of Rn Homecare No August 02, 2023 10:54am Advance Directive Response Recorded Date/ Time Name of Medical Power of Rn Homecare mom May 18, 2023 10:47am Advance Directives No February 2:11pm Living Will No August 26, 2023 7:26pm Power of Rn Homecare No August 25 7:26pm Advance Directive Response Recorded Date/ Time Name of Medical Power of Rn Homecare mom May 18, 2023 10:47am Name of Medical Power of Rn Homecare Dani Cerna cz August 26, 2023 11:59pm Advance Directives No February 2:11pm Living Will Yes August 26, 2023 11:59pm Power of Rn Homecare Yes August 25 11:59pm Advance Directive Response Recorded Date/ Time Name of Medical Power of Rn Homecare mom May 18, 2023 10:47am Name of Medical Power of Rn Homecare Dani Cerna cz August 26, 2023 11:59pm Name of Medical Power of Rn Homecare recalled September 06, 2023 12:45pm Advance Directives No February 2:11pm Living Will Yes September 06, 2023 12:45pm Power of Rn Homecare Yes September 05 12:45pm Advance Directive Response Recorded Date/ Time Name of Medical Power of Rn Homecare mom May 18, 2023 10:47am Name of Medical Power of Rn Homecare aDni Cerna cz August 26, 2023 11:59pm Name of Medical Power of Rn Homecare dani stewart September 06, 2023 7:32pm Advance Directives No February 2:11pm Living Will Yes September 06, 2023 7:32pm Power of Rn Homecare Yes September 05 7:32pm Advance Directive Response Recorded Date/ Time Living Will Yes January 18 4:03pm Do you have a Healthcare Power of Rn Homecare? Yes January 19, 2024 4:03pm Living Will No May 30, 024 7:42pm Do you have a Healthcare Power of Rn Homecare? No May 30, 2024 7:42pm Living Will No September 09, 2024 4:10pm Do you have a Healthcare Power of Rn Homecare? No September 09, 2024 4:10pm Advance Directives No January 02 9:13am Advance Directive Response Recorded Date/ Time Living Will Yes January 18 4:03pm Do you have a Healthcare Power of Rn Homecare? Yes January 19, 2024 4:03pm Living Will No May 30 7:42pm Do you have a Healthcare Power of Rn Homecare? No May 30, 2024 7:42pm Living Will No September 09, 2024 9:08pm Do you have a Healthcare Power of Rn Homecare? No September 09, 2024 9:08pm Advance Directives No January 02 9:13am Advance Directive Response Recorded Date/ Time Living Will No September 09, 2024 9:08pm Do you have a Healthcare Power of Rn Homecare? No September 09, 2024 9:08pm Do you have a Healthcare Power of Rn Homecare? No October 15, 2024 10:57am Advance Directives No January 02 9:13am Advance Directive Response Recorded Date/ Time Living Will No September 09, 2024 9:08pm Do you have a Healthcare Power of Rn Homecare? No September 09, 2024 9:08pm Do you have a Healthcare Power of Rn Homecare? No October 15, 2024 10:57am Do you have a Healthcare Power of Rn Homecare? No November 30, 2024 3:50pm Advance Directives No January 02 9:13am Advance Directive Response Recorded Date/ Time Living Will No September 09, 2024 9:08pm Do you have a Healthcare Pow er of Rn Homecare? No September 09, 2024 9:08pm Do you have a Healthcare Pow er of Rn Homecare? No October 15, 2024 10:57am Do you have a Healthcare Pow er of Rn Homecare? Yes November 30, 2024 7:56pm Name of Medical Power of Rn Homecare Garytruman Yung aparna November 30, 2024 7:56pm Advance Directives No January 02 9:13am Advance Directive Response Recorded Date/ Time Living Will No September 09, 2024 9:08pm Do you have a Healthcare Pow er of Rn Homecare? No September 09, 2024 9:08pm Do you have a Healthcare Pow er of Rn Homecare? No October 15, 2024 10:57am Do you have a Healthcare Pow er of Rn Homecare? Yes November 30, 2024 7:56pm Name of Medical Power of Rn Homecare Gary braun November 30, 2024 7:56pm Do you have a Healthcare Pow er of Rn Homecare? No December 06, 2024 5:49pm Advance Directives No January 02 9:13am Advance Directive Response Recorded Date/ Time Do you have a Healthcare Pow er of Rn Homecare? No October 15, 2024 10:57am Do you have a Healthcare Pow er of Rn Homecare? Yes November 30, 2024 7:56pm Name of Medical Power of Rn Homecare Gary Dilshad braun November 30, 2024 7:56pm Do you have a Healthcare Pow er of Rn Homecare? No December 06, 2024 5:49pm Advance Directives No January 02 9:13am Advance Directive Response Recorded Date/ Time Do you have a Healthcare Pow er of Rn Homecare? No October 15, 2024 10:57am Do you have a Healthcare Pow er of Rn Homecare? Yes November 30, 2024 7:56pm Name of Medical Power of Rn Homecare Gary braun November 30, 2024 7:56pm Do you have a Healthcare Pow er of Rn Homecare? No December 06, 2024 5:49pm Do you have a Healthcare Pow er of Rn Homecare? No January 11, 2025 3:32pm Advance Directives No January 02 9:13am Advance Directive Response Recorded Date/ Time Living Will Yes September 06, 2023 7:32pm Do you have a Healthcare Pow er of Rn Homecare? Yes September 06, 2023 7:32pm Do you have a Healthcare Pow er of Rn Homecare? No October 15, 2024 10:57am Do you have a Healthcare Pow er of Rn Homecare? Yes November 30, 2024 7:56pm Name of Medical Power of Rn Homecare Gary Yung aparna November 30, 2024 7:56pm Do you have a Healthcare Pow er of Rn Homecare? No December 06, 2024 5:49pm Do you have a Healthcare Pow er of Rn Homecare? No January 11, 2025 3:32pm Advance Directives No January 02 9:13am Advance Directive Response Recorded Date/ Time Living Will Yes September 06, 2023 7:32pm Do you have a Healthcare Pow er of Rn Homecare? Yes September 06, 2023 7:32pm Do you have a Healthcare Pow er of Rn Homecare? Yes November 30, 2024 7:56pm Name of Medical Power of Rn Homecare Gary Yung aparna November 30, 2024 7:56pm Do you have a Healthcare Pow er of Rn Homecare? No December 06, 2024 5:49pm Do you have a Healthcare Pow er of Rn Homecare? No January 11, 2025 3:32pm Advance Directives No January 02 9:13am Advance Directive Response Recorded Date/ Time Living Will Yes September 06, 2023 7:32pm Do you have a Healthcare Power of Rn Homecare? Yes September 06, 2023 7:32pm Do you have a Healthcare Power of Rn Homecare? No December 06, 2024 5:49pm Do you have a Healthcare Power of Rn Homecare? No January 11, 2025 3:32pm Advance Directives [...] for Visit Atherosclerotic hear t disease of [place] coronary artery without angina pectoris History of coronary artery stent placement Sleep apnea Type 2 diabetes mellitus Benign hypertension HFrEF (heart failure with reduced ejection fraction) Hyperlipidemia Left bundle branch block (LBBB) Non-ischemic cardiomyopathy Obesity Non-ST elevation [place] (NSTEMI) Nonobstructive atherosclerosis of coronary artery Atherosclerotic heart disease of [place] coronary artery without angina pectoris Cardiomyopathy, ischemic History of coronary artery stent placement Type 2 diabetes mellitus Benign hypertension HFrEF (heart failure with reduced ejection fraction) Hyperlipidemia Obesity Non-ST elevation NV (NSTEMI) Atherosclerotic heart disease of [place] coronary artery without angina pectoris Benign hypertension [...] for Visit Atherosclerotic hear t disease of [place] coronary artery without angina pectoris History of coronary artery stent placement Sleep apnea Type 2 diabetes mellitus Benign hypertension HFrEF (heart failure with reduced ejection fraction) Hyperlipidemia Left bundle branch block (LBBB) Non-ischemic cardiomyopathy Obesity Non-ST elevation NV (NSTEMI) Nonobstructive atherosclerosis of coronary artery Atherosclerotic heart disease of [place] coronary artery without angina pectoris Cardiomyopathy, ischemic History of coronary artery stent placement Type 2 diabetes mellitus Benign hypertension HFrEF (heart failure with reduced ejection fraction) Hyperlipidemia Obesity Non-ST elevation NV (NSTEMI) Atherosclerotic heart disease of [place] coronary artery without angina pectoris Benign hypertension Hyperlipidemia Non-ischemic cardiomyopathy Acute dehydration Acute kidney injury Bradycardia Chest pain Hyponatremia Near syncope Acute respiratory failure Atherosclerotic heart disease of [place] coronary artery without angina pectoris Cardiomyopathy, ischemic [...] for Visit Atherosclerotic hear t disease of [place] coronary artery without angina pectoris History of coronary artery stent placement Sleep apnea Type 2 diabetes mellitus Benign hypertension HFrEF (heart failure with reduced ejection fraction) Hyperlipidemia Left bundle branch block (LBBB) Non-ischemic cardiomyopathy Obesity Non-ST elevation NV (NSTEMI) Nonobstructive atherosclerosis of coronary artery Atherosclerotic heart disease of [place] coronary artery without angina pectoris Cardiomyopathy, ischemic History of coronary artery stent placement Type 2 diabetes mellitus Benign hypertension HFrEF (heart failure with reduced ejection fraction) Hyperlipidemia Obesity Non-ST elevation NV (NSTEMI) Atherosclerotic heart disease of [place] coronary artery without angina pectoris Benign hypertension Hyperlipidemia Non-ischemic cardiomyopathy Acute dehydration Acute kidney injury Bradycardia Chest pain Hyponatremia Near syncope Acute respiratory failure Atherosclerotic heart disease of [place] coronary artery without angina pectoris Cardiomyopathy, ischemic [...] for Visit Atherosclerotic hear t disease of [place] coronary artery without angina pectoris Cardiomyopathy, ischemic History of coronary artery stent placement Type 2 diabetes mellitus Benign hypertension HFrEF (heart failure with reduced ejection fraction) Hyperlipidemia Obesity Non-ST elevation NV (NSTEMI) Atherosclerotic heart disease of [place] coronary artery without angina pectoris Benign hypertension Hyperlipidemia Non-ischemic cardiomyopathy Acute dehydration Acute kidney injury Bradycardia Chest pain Hyponatremia Near syncope Acute respiratory failure Atherosclerotic heart disease of [place] coronary artery without angina pectoris Cardiomyopathy, ischemic [...] Hyponatremia Near syncope Atherosclerotic heart disease of [place] coronary artery without angina pectoris Cardiomyopathy, ischemic [...] Hyponatremia Near syncope Atherosclerotic heart disease of [place] coronary artery without angina pectoris Cardiomyopathy, ischemic [...] for Visit Atherosclerotic hear t disease of [place] coronary artery without angina pectoris Cardiomyopathy, ischemic [...] fibrillation Presence of cardiac 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 therapy defibrillator (MASTER YACHT-D) HFrEF (heart failure with reduced ejection fraction) Left bundle branch block (LBBB) Cardiomyopathy, ischemic Presence of cardiac 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 therapy defibrillator (MASTER YACHT-D) HFrEF (heart failure with reduced ejection fraction) Left bundle branch block (LBBB) Cardiomyopathy, ischemic History of coronary artery stent placement Palpitations Presence of cardiac 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 therapy defibrillator (MASTER YACHT-D) Benign hypertension Hyperlipidemia Left bundle branch block [...] fibrillation Presence of cardiac 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 therapy defibrillator (MASTER YACHT-D) HFrEF (heart failure with reduced ejection fraction) Left bundle branch block (LBBB) Cardiomyopathy, ischemic Presence of cardiac 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 therapy defibrillator (MASTER YACHT-D) HFrEF (heart failure with reduced ejection fraction) Left bundle branch block (LBBB) Cardiomyopathy, ischemic History of coronary artery stent placement Palpitations Presence of cardiac 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 therapy defibrillator (MASTER YACHT-D) Benign hypertension Hyperlipidemia Left bundle branch block [...] fibrillation Presence of cardiac 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 therapy defibrillator (MASTER YACHT-D) HFrEF (heart failure with reduced ejection fraction) Left bundle branch block (LBBB) Cardiomyopathy, ischemic Presence of cardiac 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 therapy defibrillator (MASTER YACHT-D) HFrEF (heart failure with reduced ejection fraction) Left bundle branch block (LBBB) Cardiomyopathy, ischemic History of coronary artery stent placement Palpitations Presence of cardiac 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 therapy defibrillator (MASTER YACHT-D) Benign hypertension Hyperlipidemia Left bundle branch block [...] fibrillation Presence of cardiac 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 therapy defibrillator (MASTER YACHT-D) HFrEF (heart failure with reduced ejection fraction) Left bundle branch block (LBBB) Cardiomyopathy, ischemic Presence of cardiac 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 therapy defibrillator (MASTER YACHT-D) HFrEF (heart failure with reduced ejection fraction) Left bundle branch block (LBBB) Cardiomyopathy, ischemic History of coronary artery stent placement Palpitations Presence of cardiac 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 therapy defibrillator (MASTER YACHT-D) Benign hypertension Hyperlipidemia Left bundle branch block [...] fibrillation Presence of cardiac 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 therapy defibrillator (MASTER YACHT-D) HFrEF (heart failure with reduced ejection fraction) Left bundle branch block (LBBB) Cardiomyopathy, ischemic Presence of cardiac 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 therapy defibrillator (MASTER YACHT-D) HFrEF (heart failure with reduced ejection fraction) Left bundle branch block (LBBB) Cardiomyopathy, ischemic Palpitations Presence of cardiac 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 therapy defibrillator (MASTER YACHT-D) Benign hypertension History of coronary artery stent placement Hyperlipidemia Left bundle branch block (LBBB) Hyperthyroidism Obesity Type 2 diabetes mellitus Cardiomyopathy, ischemic Palpitations Presence of cardiac 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 therapy defibrillator (MASTER YACHT-D) Benign hypertension History of coronary artery stent placement Hyperlipidemia Left bundle branch block (LBBB) Chief Complaint 4 M FU 1 Y FU E-ORDER 3 M FU NEAR SYNCOPE THYROID NODULES Reason for Visit Hyperthyroidism Obesity Type 2 diabetes mellitus Cardiomyopathy, ischemic Dyspnea on exertion Palpitations Presence of cardiac 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 therapy defibrillator (MASTER YACHT-D) Benign hypertension History of coronary artery stent [...] Presence of cardiac resynchr onization therapy defibrillator (MASTER YACHT-D) January 29, 2025 1:31pm Benign hypertension January 29, 2025 1: 31pm Dyspnea on exertion January 29, 2025 1: 31pm History of coronary artery stent placeme nt January 29, 2025 1:31pm Hyperlipidemia January 29, 2025 1: 31pm Left bundle branch block (LBBB) January 052024 1:31pm Chief Complaint Admit Date 2 M FU November 07, 2024 2:31p [...] Y FU January 29, 2025 1: 31pm KANIKA; baseline and titration due to cardi ac disease February 25, 2025 7:57pm Chief Complaint Admit Date sob December 06, 2024 5:12p m Inhaler [...] Y FU January 29, 2025 1: 31pm KANIKA; baseline and titration due to cardi ac disease February 25, 2025 7:57pm Pacer Check Remote March 18, 2025 1 :01am KANIKA March 26, 2025 1 0:57am Reason for Visit Admit Date CHF (congestive heart failure) 2024 9:22am Dyspnea [...] Presence of cardiac resynchr onization therapy defibrillator (MASTER YACHT-D) January 29, 2025 1:31pm Benign hypertension January [...] Serafin Padron MD [address] [place] [address] Referral ID Status Reason Start Date Expiration Date V isits Requested Visits Authorized [id number] New Request 08/18/2022 09/12/2023 1 1 Specialty Diagnoses / Procedures Referred By Contac t Referred To Contact Procedures ECG Edward Pandey MD [address] [place] [address] Referral ID Status Reason Start Date Expiration Date V isits Requested Visits Authorized [id number] New Request 09/20/2022 10/15/2023 1 1 Additional Source Comments INFORMATION SOURCE (unrecogn ized section and content) DATE CREATED AUTHOR 08/26/2021 [facility] DATE CREATED AUTHOR AUTHOR'S ORGANIZ ATION 11/22/2022 [facility] DATE CREATED AUTHOR AUTHOR'S ORGANIZ ATION 04/04/2025 [facility] Goals (unrecognized section and content) Goals [...] Provider, Referring P rovider Active Bryan Mitchell BAD WORK GATHERER, BAD WORK GATHERER-C Attending Provider Active Team Status: Active Member [...] Status: Inactive Member Role Status Dates Dr. Mrago Tatum DO Primary Care Provider Active Dr. Arjun Ortez DO Attending Provider, Emergency P rovider Active Team Status: Inactive Member Role Status Dates Dr. Margo Tatum DO Primary Care Provider Active Bryan Mitchell BAD WORK GATHERER, BAD WORK GATHERER-C Attending Provider Active Team Status: Inactive Member [...] Member Role Status Dates Dr. Margo Tatum , DO Primary Care Provider Active Mike Tom [...] Dr. Suma Mathew MD Attending Provider Active Head Of Merchandise Buying Relationship Specialty Start Date End Date Margo Tatum DO [address] [place] [address] PCP - General Family Medicine 07/20/22 Bryan Mitchell, AUTOMATIC CEN[employer]UGAL STATION OPERATOR [address] [place] [address] Nurse Practitioner - Family 07/19/22 Head Of Merchandise Buying Relationship Specialty Start Date End Date Margo Tatum DO [address] [place] [id number] PCP - General Family Medicine 07/20/22 Bryan Mitchell, AUTOMATIC CENTRIFUGAL STATION OPERATOR [address] [place] [address] Nurse Practitioner - Family 07/19/22 Team [...] DO Primary Care Provider Active Bryan Mitchell BAD WORK GATHERER, BAD WORK GATHERER-C Attending Provider, Referring Pro vider Active Team [...] Member Role Status Dates Dr. Margo Tatum , DO Primary Care Provider Active Bryan Mitchell NP, BAD WORK GATHERER-C Attending Provider Active Team Status: Active Member [...] DO Primary Care Provider Active Dr. Rell Loear MD Emergency Provider Active Dr. Perlita Gómez MD Admit Provider, Other Provider Active Dr. Emiliano Campoverde MD Other Provider Active Dr. Damaris Thibodeaux DO Attending Provider Active Dr. Aidan Staples DO Other Provider Active Team Status: Active Member Role Status Dates Dr. Margo Tatum DO Primary Care Provider Active Dr. Terry Arzate MD Emergency Provider Active Dr. Navedep Bourgeois MD Attending Provider Active Team Status: [...] Provider Active Dr. Jamie Manrique DO Attending Provider Active Dr. Berenice Short [...] 2024 End: June 13, 2024 Mike Tom BAD WORK GATHERER-C Attending Provider Active Start: June 13, 2024 End: June 13, 2024 Team Status: Inactive Member Role Status Dates Dr. Margo Tatum DO Primary Care Provider Active Start: July 05, 2024 End: July 05, 2024 Mike Tom BAD WORK GATHERER-C Attending Provider Active Start: July 05, 2024 End: July 05, 2024 Mike Tom BAD WORK GATHERER-C Referring Provider Active Start: July 05, 2024 [...] Active Star t: September 10, 2024 Dr. Fracnine Steele MD Admit Provider Active St art: [...] Provider Active Start: September 25, 2024 Dr. Darlien Solano MD Referring Provider Active Start: September [...] 17, 2024 End: October 17, 2024 Dr. rC Ho MD Attending Provider Active S tart: [...] Active St art: September 09, 2024 Dr. Frnacine Steele MD Attending Provider Active Start: September [...] art: September 11, 2024 Dr. Damaris Thibodeaux , Attending Provider Active S tart: September 11, 2024 Dr. Damaris Thibodeaux , DO Other Provider Active Start : September [...] 2024 End: September 12, 2024 Mike Tom BAD WORK GATHERER-C Attending Provider Active Start: September 12, 2024 End: September 12, 2024 Team Status: Inactive Member Role/Relationship Status Dates Dr. Margo Tatum DO Primary Care Provider Active Start: September 24, 2024 End: September 24, 2024 Mike Tom BAD WORK GATHERER-C Attending Provider Active Start: September 24, 2024 End: September 24, 2024 Mike Tom BAD WORK GATHERER-C Referring Provider Active Start: September 24, 2024 [...] Status: Inactive Member Role/Relationship Status Dates Dr. Mrago Tatum DO Primary Care Provider Active Start: [...] 27, 2024 End: December 27, 2024 Dr. Hermiino Magana DO Attending Provider Active S tart: [...] December 18, 2024 Dr. Herminio Magana , DO Referring [...] January 22, 2025 End: January 22, 2025 Susan Urena NP-C Attending Provider Active Start: January 22, 2025 End: January 22, 2025 Team Status: Active Member Role/Relationship Status Dates Dr. Margo Tatum DO Primary Care Provider Active Start: January 23, 2025 Susan Urena NP-C Attending Provider Active Start: January 23, 2025 Susan Urena NP-C Referring Provider Active Start: January 23, 2025 [...] January 23, 2025 End: January 23, 2025 Susan Urena NP-C Attending Provider Active Start: January 23, 2025 End: January 23, 2025 Susan Urena NP-C Referring Provider Active Start: January 23, 2025 End: January 23, 2025 Team Status: Active Member Role/Relationship Status Dates Dr. Margo Tatum DO Primary care physician Active Team Status: Active Member Role/Relationship Status Dates Mehnaz Laughlin MD Primary care physician Active Start: November 12, 2011 Team Status: Inactive Member Role/Relationship Status Dates Dr. Margo Tatum DO Primary care physician Active Start: November 07, 2024 End: November 07, 2024 Dr. Margo Tatum DO Referring Provider Active St art: November 07, 2024 End: November 07, 2024 ROLANDO ColindresC Attending physician Active Start: November 07, 2024 End: November 07, 2024 Team Status: Inactive Member Role/Relationship Status Dates Dr. Margo Tatum DO Primary care physician Active Start: November 30, 2024 End: December 01, 2024 Dr. Allen Meraz DO Emergency Department Physician Ac tive Start: November 30, 2024 End: December 01, 2024 Dr. Suma Mathew MD Admitting physician Active Start: November 30, 2024 End: December 01, 2024 Dr. Suma Mathew MD Nurse Practitioner Active Start: November 30, 2024 End: December 01, 2024 Dr. Aidan Staples DO Attending physician Active Start: November 30, 2024 End: December 01, 2024 Team Status: Active Member Role/Relationship Status Dates Dr. Margo Tatum DO Primary care physician Active Start: December 01, 2024 Dr. Estrellita Alarcon MD Attending physician Active Start: December 01, 2024 Team Status: Active Member Role/Relationship Status Dates Dr. Margo Tatum DO Primary care physician Active Start: December 01, 2024 Dr. Allen Meraz DO Emergency Department Physician Ac tive Start: December 01, 2024 Dr. Suma Mathew MD Admitting physician Active Start: December 01, 2024 Dr. Suma Mathew MD Nurse Practitioner Active Start: December 01, 2024 Dr. Aidan Staples DO Attending physician Active Start: December 01, 2024 Dr. Aidan Staples DO Nurse Practitioner Active Start: December 01, 2024 Team Status: Inactive Member Role/Relationship Status Dates Dr. Margo Tatum DO Primary care physician Active Start: December 04, 2024 Dr. Berenice Short MD Attending physician Active Start: December 04, 2024 Team Status: Inactive Member Role/Relationship Status Dates Dr. Margo Tatum DO Primary care physician Active Start: December 06, 2024 End: December 06, 2024 Dr. Rell Loera MD Attending physician Active Start: December 06, 2024 End: December 06, 2024 Dr. Rell Loera MD Referring Provider Active Start: December 06, 2024 End: December 06, 2024 Dr. Rell Loera MD Emergency Department Physician Active Start: December 06, 2024 End: December 06, 2024 Team Status: Inactive Member Role/Relationship Status Dates Dr. Margo Tatum DO Primary care physician Active Start: 2024 End: 2024 Dr. Margo Tatum DO Referring Provider Active St art: 2024 End: 2024 Dr. Herminio Magana DO Attending physician Active Start: 2024 End: 2024 Team Status: Inactive Member Role/Relationship Status Dates Dr. Margo Tatum DO Primary care physician Active Start: 2024 End: 2024 Dr. Herminio Magana DO Attending physician Active Start: 2024 End: 2024 Dr. Herminio Magana DO Referring Provider Active S tart: 2024 End: 2024 Team Status: Inactive Member Role/Relationship Status Dates Dr. Margo Tatum DO Primary care physician Active Start: December 17, 2024 End: December 17, 2024 Dr. Cr Ho MD Attending physician Active Start: December 17, 2024 End: December 17, 2024 Team Status: Inactive Member Role/Relationship Status Dates Dr. Margo Tatum DO Primary care physician Active Start: December 18, 2024 End: December 18, 2024 Dr. Herminio Magana DO Attending physician Active Start: December 18, 2024 End: December 18, 2024 Dr. Herminio Magana DO Referring Provider Active S tart: December 18, 2024 End: December 18, 2024 Team Status: Inactive Member Role/Relationship Status Dates Dr. Margo Tatum DO Primary care physician Active Start: December 27, 2024 End: December 27, 2024 Dr. Herminio Magana DO Attending physician Active Start: December 27, 2024 End: December 27, 2024 Dr. Herminio Magana DO Referring Provider Active S tart: December 27, 2024 End: December 27, 2024 Team Status: Active Member Role/Relationship Status Dates Dr. Margo Tatum DO Primary care physician Active Start: December 28, 2024 Dr. Herminio Magana DO Attending physician Active Start: December 28, 2024 Dr. Herminio Magana DO Referring Provider Active S tart: December 28, 2024 Dr. Herminio Magana DO Nurse Practitioner Active S tart: December 28, 2024 Team Status: Inactive Member Role/Relationship Status Dates Dr. Margo Tatum DO Primary care physician Active Start: January 11, 2025 End: January 11, 2025 Dr. Margo Tatum DO Referring Provider Active St art: January 11, 2025 End: January 11, 2025 CARMEN Joy Attending physician Active Start: January 11, 2025 End: January 11, 2025 Team Status: Inactive Member Role/Relationship Status Dates Dr. Margo Tatum DO Primary care physician Active Start: January 11, 2025 End: January 11, 2025 Susan Urena NP-C Attending physician Active Start: January 11, 2025 End: January 11, 2025 Susan Urena NP-C Referring Provider Active Start: January 11, 2025 End: January 11, 2025 Team Status: Inactive Member Role/Relationship Status Dates Dr. Margo Tatum DO Primary care physician Active Start: January 11, 2025 End: January 11, 2025 Dr. Tam Robins DO Attending physician Active Start: January 11 End: January 11, 2025 Dr. Tam Robins DO Emergency Department Physician Active Start: January 11, 2025 End: January 11, 2025 Team Status: Inactive Member Role/Relationship Status Dates Dr. Margo Tatum DO Primary care physician Active Start: January 22, 2025 End: January 22, 2025 Susan Urena NP-C Attending physician Active Start: January 22, 2025 End: January 22, 2025 Team Status: Inactive Member Role/Relationship Status Dates Dr. Margo Tatum DO Primary care physician Active Start: January 23, 2025 End: January 23, 2025 Susan Urena NP-C Attending physician Active Start: January 23, 2025 End: January 23, 2025 Susan Urena NP-C Referring Provider Active Start: January 23, 2025 End: January 23, 2025 Team Status: Inactive Member Role/Relationship Status Dates Dr. Margo Tatum DO Primary care physician Active Start: January 29, 2025 End: January 29, 2025 Dr. Margo Tatum DO Referring Provider Active St art: January 29, 2025 End: January 29, 2025 Dr. Cr Ho MD Attending physician Active Start: January 29, 2025 End: January 29, 2025 Team Status: Inactive Member Role/Relationship Status Dates Dr. Margo Tatum DO Primary care physician Active Start: February 25, 2025 End: February 25, 2025 CARMEN Joy Attending physician Active Start: February 25, 2025 End: February 25, 2025 CARMEN Joy Referring Provider Active Start: February 25, 2025 End: February 25, 2025 Team Status: Inactive Member Role/Relationship Status Dates Dr. Margo Tatum DO Primary care physician Active Start: December 04, 2024 Dr. Berenice Short MD Attending physician Active Start: December 04, 2024 Team Status: Inactive Member Role/Relationship Status Dates Dr. Margo Tatum DO Primary care physician Active Start: December 06, 2024 End: December 06, 2024 Dr. Rell Loera MD Attending physician Active Start: December 06, 2024 End: December 06, 2024 Dr. Rell Loera MD Referring Provider Active Start: December 06, 2024 End: December 06, 2024 Dr. Rell Loera MD Emergency Department Physician Active Start: December 06, 2024 End: December 06, 2024 Team Status: Inactive Member Role/Relationship Status Dates Dr. Margo Tatum DO Primary care physician Active Start: 2024 End: 2024 Dr. Margo Tatum DO Referring Provider Active St art: 2024 End: 2024 Dr. Herminio Magana DO Attending physician Active Start: 2024 End: 2024 Team Status: Inactive Member Role/Relationship Status Dates Dr. Margo Tatum DO Primary care physician Active Start: 2024 End: 2024 Dr. Herminio Magana DO Attending physician Active Start: 2024 End: 2024 Dr. Herminio Magana DO Referring Provider Active S tart: 2024 End: 2024 Team Status: Inactive Member Role/Relationship Status Dates Dr. Margo Tatum DO Primary care physician Active Start: December 17, 2024 End: December 17, 2024 Dr. Cr Ho MD Attending physician Active Start: December 17, 2024 End: December 17, 2024 Team Status: Inactive Member Role/Relationship Status Dates Dr. Margo Tatum DO Primary care physician Active Start: December 18, 2024 End: December 18, 2024 Dr. Herminio Magana DO Attending physician Active Start: December 18, 2024 End: December 18, 2024 Dr. Herminio Magana , Referring Provider Active S tart: December 18, 2024 End: December 18, 2024 Team Status: Inactive Member Role/Relationship Status Dates Dr. Margo Tatum DO Primary care physician Active Start: December 27, 2024 End: December 27, 2024 Dr. Herminio Magana DO Attending physician Active Start: December 27, 2024 End: December 27, 2024 Dr. Herminio Magana , Referring Provider Active S tart: December 27, 2024 End: December 27, 2024 Team Status: Active Member Role/Relationship Status Dates Dr. Margo Tatum DO Primary care physician Active Start: December 28, 2024 Dr. Herminio Magana DO Attending physician Active Start: December 28, 2024 Dr. Herminio Magana , Referring Provider Active S tart: December 28, 2024 Dr. Herminio Magana , Nurse Practitioner Active S tart: December 28, 2024 Team Status: Inactive Member Role/Relationship Status Dates Dr. Margo Tatum DO Primary care physician Active Start: January 11, 2025 End: January 11, 2025 Dr. Margo Tatum DO Referring Provider Active St art: January 11, 2025 End: January 11, 2025 ROLANDO JoyC Attending physician Active Start: January 11, 2025 End: January 11, 2025 Team Status: Inactive Member Role/Relationship Status Dates Dr. Margo Tatum DO Primary care physician Active Start: January 11, 2025 End: January 11, 2025 CARMEN Joy Attending physician Active Start: January 11, 2025 End: January 11, 2025 CARMEN Joy Referring Provider Active Start: January 11, 2025 End: January 11, 2025 Team Status: Inactive Member Role/Relationship Status Dates Dr. Margo Tatum DO Primary care physician Active Start: January 11, 2025 End: January 11, 2025 Dr. Tam Robins DO Attending physician Active Start: January 11 End: January 11, 2025 Dr. Tam Robins DO Emergency Department Physician Active Start: January 11, 2025 End: January 11, 2025 Team Status: Inactive Member Role/Relationship Status Dates Dr. Margo Tatum DO Primary care physician Active Start: January 22, 2025 End: January 22, 2025 CARMEN Joy Attending physician Active Start: January 22, 2025 End: January 22, 2025 Team Status: Inactive Member Role/Relationship Status Dates Dr. Margo Tatum DO Primary care physician Active Start: January 23, 2025 End: January 23, 2025 CARMEN Joy Attending physician Active Start: January 23, 2025 End: January 23, 2025 CARMEN Joy Referring Provider Active Start: January 23, 2025 End: January 23, 2025 Team Status: Inactive Member Role/Relationship Status Dates Dr. Margo Tatum DO Primary care physician Active Start: January 29, 2025 End: January 29, 2025 Dr. Margo Tatum DO Referring Provider Active St art: January 29, 2025 End: January 29, 2025 Dr. Cr Ho MD Attending physician Active Start: January 29, 2025 End: January 29, 2025 Team Status: Inactive Member Role/Relationship Status Dates Dr. Margo Tatum DO Primary care physician Active Start: February 25, 2025 End: February 25, 2025 CARMEN Joy Attending physician Active Start: February 25, 2025 End: February 25, 2025 CARMEN Joy Referring Provider Active Start: February 25, 2025 End: February 25, 2025 Team Status: Inactive Member Role/Relationship Status Dates Dr. Margo Tatum DO Primary care physician Active Start: March 18, 2025 End: March 18, 2025 Dr. Cr Ho MD Attending physician Active Start: March 18, 2025 End: March 18, 2025 Team Status: Active Member Role/Relationship Status Dates Dr. Margo Tatum DO Primary care physician Active Start: March 26, 2025 CARMEN Joy Attending physician Active Start: March 26, 2025 CARMEN Joy Referring Provider Active Start: March 26, 2025 PRN Active and Recently Administ ered [...] Ofelia Estrella RN)1305 (Given - Provider: Edward Baekr RN)1307 (Given - Provider: Edward Baker RN) [...] 1,500 mg, Intravenous, Administer over 1 Hours, BUSINESS LOAN PROCESSOR TO PROCEDURE, 1 dose, Starting on Tue08/18/22 at 0000, Until Discontinued, Other, Preoperative antibiotic, Order should be timed for day of procedure. Floor nurse to start Vancomycin infusion on unit floor when EP lab staff notifies that patient is stone carver to EP lab. Vancomycin is preferred agent [...] Tue09/20/22 at 1815, Extravasation Risk, CT Procedure 180 (Given - Radiol ogy - Provider: Yris [...] Procedure 1806 (Given - Provid er: Yris Victor Manuel) Reason for Visit (unrecogniz ed section and [...] BE BASED ON THE PRIMARY CLINICAL RECORDS. [facility]. provides no warranty or guarantee of the accuracy or completeness of information in this document.
[2025-05-21 22:05] VITALS: BP 152/84; PULSE 86; RESP 17; O2SAT 93
[2025-05-21 22:23] VITALS: BP 152/84; PULSE 86; RESP 18; TEMP 36.6; O2SAT 97
[2025-05-21 22:43] VITALS: BP 152/84; PULSE 86; RESP 18; TEMP 36.6; O2SAT 97
--- NOTE | 2025-05-21 23:55 | EDS_ITS ---
HPI HPI - Female History of Present Illness Chief Complaint: Complaint Narrative Narrative: Patient is a 54-year-old female presenting to the emergency department for UTI concern. Patient has a past medical history of COPD, CHF, thyroid disturbances, CAD, type 2 diabetes, hypertension. Patient states that she started having urinary tract infection symptoms on of last week. States that she went to urgent care yesterday and was prescribed Macrobid and has had 2 doses. She states that she does not feel like it is working and she is have a bladder pressure and pain. Denies any fever, chills, nausea or vomiting. Denies any changes to her bowel movements. Denies any hematuria. Denies any vaginal bleeding or discharge. States this feels consistent with her prior UTIs. 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) Diabetes Atrial fibrillation Coronary artery disease Hypertension Paroxysmal atrial fibrillation Hyperthyroidism Vomiting Hirsutism Chronic nausea Non-ST elevation (NSTEMI) myocardial infarction Difficult intubation Syncope Thyroid nodule Kidney stones Former smoker COPD (chronic obstructive pulmonary disease) Irregular heart beat Myocardial infarct Seizures COVID-19 virus infection Cardiomyopathy, ischemic Atherosclerotic heart disease of [place] coronary artery without angina pectoris HFrEF (heart failure with reduced ejection fraction) Obesity Left bundle branch block (LBBB) Non-ischemic cardiomyopathy History of non-ST elevation myocardial infarction (NSTEMI) (09/08/21) Hyperglycemia due to type 2 diabetes mellitus Chronic low back pain Type 2 diabetes mellitus Hyperlipidemia Benign hypertension Home Medications ?Medication ?Instructions ?Recorded ?Last Taken ?Type BD Ultra-Fine [place] Pen Needle 32 #100 ea 07/29/22 Unkn own Rx gauge x (pen needle, diabetic) diphenhydramine HCl 25 mg tablet 25 mg PO Q4H PRN Juaquin rgy Symptoms 08/06/22 10/14/24 History hydrocodone-acetaminophen 5-325mg 1 tab PO BID PRN ross n 08/06/22 10/14/24 History 5mg-325mg naloxegol 25 mg tablet (Movantik) 25 mg PO QAM PRN ross n 08/06/22 Unknown History omeprazole magnesium 20 mg 20 mg PO DAILY reflux 08/0610/15/24 History tablet,delayed release (Prilosec OTC) promethazine 25 mg tablet 25 mg PO TID PRN Nausea And 08/06/22 Unknown History Vomiting tizanidine 4 mg tablet 4 mg PO QHS muscle spasms 10/14/24 History cholecalciferol (vitamin D3) 50 1,000 unit PO DAILY vi tamin 03/08/23 01/19/24 History mcg (2,000 unit) capsule blood-glucose,cork cutter,cont #1 ea 10/10/23 Unknown Rx (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) melatonin 10 mg capsule 10 mg PO HS PRN insomnia 02/27 Unknown History insulin glargine-yfgn 100 unit/mL 50 unit (0.5 mL) sub cut DAILY #0 mL 09/11/24 10/15/24 Rx (3 mL) subcutaneous pen Dexcom G7 Sensor (blood-glucose #3 ea 09/17/24 Unknown Rx sensor) insulin lispro 100 unit/mL 36 unit subcut TIDCM 10/15/24 History subcutaneous pen (Humalog KwikPen (U-100) Insulin) dulaglutide 4.5 mg/0.5 mL 4.5 mg (0.5 mL) subcut QWEEK #2 mL 11/07/24 Unknown Rx subcutaneous pen injector (Trulicity) albuterol sulfate 90 mcg/actuation 2 puff inhalation Q 6H PRN 12/01/24 Unknown Rx aerosol inhaler (Ventolin HFA) shortness of breath or wheezing #6.7 grams budesonide-formoterol HFA 160 2 puff inhalation BID #1 0.2 grams 12/01/24 Unknown Rx mcg-4.5 mcg/actuation aerosol inhaler (Symbicort) apixaban 5 mg tablet (Eliquis) See Rx Instructions .Ro yumi 01/29/25 Unknown Rx .COMPLEX blood thinner #180 tabs atorvastatin 80 mg tablet See Rx Instructions .Route 0 01/29/25 Unknown Rx .COMPLEX cholesterol #90 TABLETS carvedilol 25 mg tablet 25 mg PO BID blood pressure #180 01/29/25 Unknown Rx tabs clopidogrel 75 mg tablet (Plavix) 75 mg PO DAILY anti platelet #90 01/29/25 Unknown Rx tabs glipizide 10 mg tablet 10 mg PO BID 01/29/25 Unknow n History hydrochlorothiazide 25 mg tablet 25 mg PO QAM #90 tabs 01/29/25 Unknown Rx isosorbide mononitrate 30 mg See Rx Instructions .Rout e 01/29/25 Unknown Rx tablet,extended release 24 hr .COMPLEX heart #360 TABL ETS sacubitril 97 mg-valsartan 103 mg 1 tab PO BID heart # 180 tabs 01/29/25 Unknown Rx tablet (Entresto) spironolactone 50 mg tablet 50 mg PO DAILY #90 TABLETS 01/29/25 Unknown Rx methimazole 10 mg tablet 10 mg PO DAILY thyroid #90 t abs 03/13/25 Unknown Rx CPAP - Continuous Positive Airway 03/26/25 Unknown Hi story Pressure([facility] INFORMATIONAL USE ONLY) phenazopyridine 200 mg tablet 200 mg PO TID 6 doses #6 tabs 05/21/25 Unknown Rx (Pyridium) Allergy/AdvReac Type Severity Reaction Status Date / Time amoxicillin trihydrate (From AdvReac Vomiting Verified 05/21/25 15:34 Augmentin) potassium clavulanate (From AdvReac Vomiting Verified 05/21/25 15:34 Augmentin) Family History Father Myocardial infarction Cancer prostate, leukemia Agent orange exposure Diabetes Sister Diabetes COPD (chronic obstructive pulmonary disease) Mother CVA (cerebral vascular accident) Hypertension Surgical History History of bladder surgery (~09/2023) History of cholecystectomy History of appendectomy History of coronary artery stent placement (05/19/21) Status post insertion of nerve stimulator History of laparoscopy History of tonsillectomy History of cholecystectomy (1991) History of hysterectomy History of left heart catheterization (09/14/21) History of back surgery Social History household members: significant other current occupational status: employed Smoking Status: Former smoker how long ago did patient quit smoking: Quit 1990, smoke 2 ppd since teen until quit. alcohol intake: current alcohol intake frequency: holidays/special occasions only substance use type: does not use caffeine: Yes ROS ROS ED ROS Narrative See HPI EXAM Physical Exam Narrative Exam Narrative: Vital signs: Reviewed General: Alert and oriented x 3. No acute distress. Well-appearing, nontoxic. HEENT: Head is normocephalic and atraumatic, sinuses nontender, pupils equal round and reactive. Nares are patent. Oropharynx and throat exams normal. Neck: Supple without lymphadenopathy nontender Cardiovascular: Regular rate and rhythm, no murmurs. No rubs or gallops. Normal S1 and S2 Respiratory: Clear to auscultation bilaterally. No wheezes, rales, rhonchi Abdominal: Soft and tender to palpation only in the suprapubic region. Normal bowel sounds. No guarding or rebound. Nonsurgical abdomen Extremities: No tenderness. No bruising. Normal range of motion. Normal sensation. Skin: No rash or redness. The rest of the physical exam is unremarkable Const Vital Signs: 05/21/25 15:34 05/21/25 22:05 05/21/25 22:23 Temperature 98.8 F 98 F Temperature Source Oral Oral Pulse Rate 80 86 86 Respiratory Rate 18 17 18 Blood Pressure 155/94 H 152/84 H 152/84 H Blood Pressure Mean 114 106 106 Pulse Ox 99 93 97 Oxygen Delivery Method Room Air Room Air Room Air 05/21/25 22:43 Temperature 98 F Temperature Source Pulse Rate 86 Respiratory Rate 18 Blood Pressure 152/84 H Blood Pressure Mean 106 Pulse Ox 97 Oxygen Delivery Method MDM MDM MDM Narrative Medical decision making narrative: Patient is a 54-year-old female presenting to the emergency department for UTI symptoms. Patient was seen and examined. Vitals are stable, patient resting in bed comfortably in no acute distress. Patient was just diagnosed with a urinary tract infection yesterday at urgent care and has only had 2 doses of antibiotics, she did not fail outpatient treatment at this time. She has no vital signs or physical exam findings of systemic infection. She has no abdominal tenderness on exam other than suprapubic I do not think she requires lab work or CT imaging. She is endorsing bladder spasm type pains that I think she would benefit from Pyridium. She will be given first dose here and will be prescribed for 2 days. She was instructed to return at any time if she develops any worsening symptoms, flank pain, nausea, vomiting, fevers or chills. Patient understands and is agreeable with the plan. Patient discharged from the Emergency Department. I do not feel that the patient's evaluation reveals any acute reason for admission at this time. I instructed them to either follow-up with their primary care physician or promptly return to the Emergency Department for reevaluation should symptoms worsen or new symptoms develop. I explained what symptoms would indicate the need to return to the emergency department. Shared decision making was used. The patient voiced understanding of the treatment plan and is agreeable with it. Clinical impression UTI History & Record Review Discussion w/independent historian: Patient Lab Data Attestation: I reviewed the patient's lab results. Labs: Laboratory Results - last 24 hr 05/21/25 17:44 Urine Color Brown Urine Clarity Cloudy Urine pH 6.0 Ur Specific [place] 1.025 Urine Protein 100 H Urine Glucose (UA) 100 H Urine Ketones 5 H Urine Occult Blood 250 H Urine Nitrite Negative Urine Bilirubin 1 H Urine Urobilinogen 1 H Ur Leukocyte Esterase 500 H Urine RBC 10-25 SEEN Urine WBC >100 SEEN Ur Squamous Epith Cells 10-25 SEEN Urine Bacteria 2+ Urine Mucus 0 SEEN Urine Test Negative Discharge Plan Triage Chief Complaint: Complaint ED Provider: Rose Mary Brown Dx/Rx/DC Orders Clinical Impression: UTI (urinary tract infection) Instructions: Urinary Tract Infections in Women Prescriptions: New phenazopyridine [Pyridium] 200 mg tablet 200 mg PO TID Qty: 6 0RF No Action melatonin 10 mg capsule 10 mg PO HS PRN (Reason: insomnia) glipizide 10 mg tablet 10 mg PO BID Eliquis 5 mg tablet See Rx Instructions .ROUTE .COMPLEX Qty: 180 3RF Dose Instruction: take 1 tablet by mouth twice a day Patient Comments: since 08/25 Rx Instructions: take 1 tablet by mouth twice a day atorvastatin 80 mg tablet See Rx Instructions .ROUTE .COMPLEX Qty: 90 3RF Dose Instruction: take 1 tablet by mouth at bedtime Rx Instructions: take 1 tablet by mouth at bedtime carvedilol 25 mg tablet 25 mg PO BID Qty: 180 3RF Rx Instructions: must administer with a meal/food clopidogrel [Plavix] 75 mg tablet 75 mg PO DAILY Qty: 90 3RF isosorbide mononitrate 30 mg tablet extended release 24 hr See Rx Instructions .ROUTE .COMPLEX Qty: 360 0RF Dose Instruction: take 1 tablet by mouth once daily Rx Instructions: take 1 tablet by mouth once daily Entresto 97-103 mg tablet 1 tab PO BID Qty: 180 3RF spironolactone 50 mg tablet 50 mg PO DAILY Qty: 90 3RF hydrochlorothiazide 25 mg tablet 25 mg PO QAM Qty: 90 3RF Trulicity 4.5 mg/0.5 mL pen injector 4.5 mg subcut QWEEK Qty: 2 3RF Patient Comments: PT TAKES ON THURSDAYS tizanidine 4 mg tablet 4 mg PO QHS diphenhydramine HCl 25 mg Tablet 25 mg PO Q4H PRN (Reason: Allergy Symptoms) promethazine 25 mg tablet 25 mg PO TID PRN (Reason: Nausea And Vomiting) hydrocodone-acetaminophen 5-325 mg tablet 1 tab PO BID PRN (Reason: pain) omeprazole magnesium [Prilosec OTC] 20 mg tablet,delayed release (DR/EC) 20 mg PO DAILY Movantik 25 mg tablet 25 mg PO QAM PRN (Reason: pain) Rx Instructions: must be taken on empty stomach; no food 1 hr after or 2-3 hrs before dose insulin glargine-yfgn 100 unit/mL (3 mL) Insulin Pen 50 unit subcut DAILY Qty: 0 0RF (DME) CPAP - Continuous Positive Airway Pressure([facility] INFORMATIONAL USE ONLY) 9CM See Rx Instructions .ROUTE .MEDSUPPLY Rx Instructions: CPAP 9CM DASCO RAND FULL FACE-S/M CUSHION insulin lispro [Humalog KwikPen Insulin] 100 unit/mL Insulin Pen 36 unit subcut TIDCM albuterol sulfate [Ventolin HFA] 90 mcg/actuation HFA aerosol inhaler 2 puff inhalation Q6H PRN (Reason: shortness of breath or wheezing) Qty: 6.7 0RF budesonide-formoterol [Symbicort] 160-4.5 mcg/actuation HFA aerosol inhaler 2 puff inhalation BID Qty: 10.2 0RF Rx Instructions: Gargle with water and spit out water after use (DME) pen needle, diabetic [BD Ultra-Fine [place] Pen Needle] 32 gauge x 5/32 needle See Rx Instructions .Route Qty: 100 5RF Rx Instructions: 4x/day cholecalciferol (vitamin D3) 50 mcg (2,000 unit) capsule 1,000 unit PO DAILY Patient Comments: PT TAKES WHEN SHE REMEMBERS (DME) 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 Misc See Rx Instructions .Route Qty: 1 0RF Rx Instructions: As directed (DME) Dexcom G7 Sensor Device See Rx Instructions .Route Qty: 3 5RF Rx Instructions: 1 sensor q 14 days methimazole 10 mg tablet 10 mg PO DAILY Qty: 90 1RF Primary Care Provider: Margo Tatum Referrals: Margo Tatum DO [Primary Care Provider, [facility]] - As soon as possible Activity Restrictions/Additional Instructions: Take the Pyridium 3 times daily after meals for 2 days. Continue taking your antibiotics as prescribed. Patient discharged from the Emergency Department. I do not feel that the patient's evaluation reveals any acute reason for admission at this time. I instructed them to either follow-up with their primary care physician or promptly return to the Emergency Department for reevaluation should symptoms worsen or new symptoms develop. I explained what symptoms would indicate the need to return to the emergency department. Shared decision making was used. The patient voiced understanding of the treatment plan and is agreeable with it. Print Language: Maori Disposition Disposition: Home, Self Care Discharge Date/Time: 05/21/25 22:46
== END 2025-05-21 22:46 | disposition home or self-care (01) ==
PROVIDERS: Emergency Provider Student in an Organized Health Care Education/Training Program; PCP Family Medicine; Visit Provider Student in an Organized Health Care Education/Training Program
DX: N39.0 Urinary tract infection, site not specified (principal); I50.22 Chronic systolic (congestive) heart failure; I11.0 Hypertensive heart disease with heart failure; J44.9 Chronic obstructive pulmonary disease, unspecified; I48.0 Paroxysmal atrial fibrillation; E11.9 Type 2 diabetes mellitus without complications; Z79.4 Long term (current) use of insulin; I25.10 Atherosclerotic heart disease of native coronary artery without angina pectoris; I25.2 Old myocardial infarction; Z95.5 Presence of coronary angioplasty implant and graft; Z79.01 Long term (current) use of anticoagulants; Z79.02 Long term (current) use of antithrombotics/antiplatelets; Z79.84 Long term (current) use of oral hypoglycemic drugs; Z79.85 Long-term (current) use of injectable non-insulin antidiabetic drugs; Z79.899 Other long term (current) drug therapy; Z86.16 Personal history of COVID-19; Z87.891 Personal history of nicotine dependence
CPT/HCPCS: 81001; 81025; 99282

== ENCOUNTER 2025-05-23 10:57 | Emergency (ER) | payer OTHER, SELFPAY ==
[2024-01-03 09:13] VITALS: BMI 35.5
[2025-05-23 10:57] VITALS: BP 186/110
[2025-05-23 10:58] VITALS: BP 183/115; PULSE 91; RESP 14; TEMP 36.6; O2SAT 98; BMI 34.5
--- NOTE | 2025-05-23 13:09 | ED.VIS.FEGU ---
HPI HPI - Female History of Present Illness Chief Complaint: Complaint Narrative Narrative: Chief complaint and HPI: 54-year-old female presents for evaluation of suprapubic abdominal pain. Patient has a past medical history of COPD, CHF, thyroid disease, DM2, HTN, previous hysterectomy. Patient states for the past 2 weeks she has been having suprapubic abdominal pain. States that she was prescribed Macrobid and Pyridium. She states she has not followed up with her primary care physician. The pressure and pain has continued. She does not have an YOUTUBER. She followed back up with urgent care today who told her to come to the ED for concerns of bladder prolapse. She denies any fever, chills, diarrhea, constipation. States she has some nausea. Review of systems: See HPI Medications: As listed on the chart Allergies: As listed on the chart PFSH: Per chart Vital signs: As listed on the chart. Reviewed. Physical exam: Gen: A&O x3 Head: Normocephalic, atraumatic Eyes: No sclera icterus, conjunctiva clear ENT: Moist mucous membranes CV: RRR, no murmurs Resp: Lungs CTA BL, no w/r/c GI: Abd soft, non-distended, tender to palpation suprapubically, no r/r/g : No CVA tenderness Musc: Full ROM, no deformity Skin: Warm, dry Neuro: Alert, oriented, grossly intact, sensation intact Psych: Cooperative, appropriate mood and affect [facility] Medical History Shortness of breath Chronic anticoagulation Pacemaker Hypothyroidism Chronic pain Asthma ICD (implantable cardioverter-defibrillator) in place Angina pectoris TRAE (acute kidney injury) Hypokalemia Hyperglycemia History of COPD History of SC (myocardial infarction) Antiplatelet or antithrombotic long-term use Anticoagulant long-term use 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 cardiac 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 therapy 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) Diabetes Atrial fibrillation Coronary artery disease Hypertension Paroxysmal atrial fibrillation Hyperthyroidism Vomiting Hirsutism Chronic nausea Non-ST elevation (NSTEMI) myocardial infarction Difficult intubation Syncope Thyroid nodule Kidney stones Former smoker COPD (chronic obstructive pulmonary disease) Irregular heart beat Myocardial infarct Seizures COVID-19 virus infection Cardiomyopathy, ischemic Atherosclerotic heart disease of [place] coronary artery without angina pectoris HFrEF (heart failure with reduced ejection fraction) Obesity Left bundle branch block (LBBB) Non-ischemic cardiomyopathy History of non-ST elevation myocardial infarction (NSTEMI) (09/08/21) Hyperglycemia due to type 2 diabetes mellitus Chronic low back pain Type 2 diabetes mellitus Hyperlipidemia Benign hypertension Home Medications ?Medication ?Instructions ?Recorded ?Last Taken ?Type BD Ultra-Fine [place] Pen Needle 32 #100 ea 07/29/22 Unknown Rx gauge x 5/32 (pen needle, diabetic) diphenhydramine HCl 25 mg tablet 25 mg PO Q4H PRN Allergy Symptoms 08/06/22 10/14/24 History hydrocodone-acetaminophen 5-325mg 1 tab PO BID PRN pain 08/06/22 10/14/24 History 5mg-325mg naloxegol 25 mg tablet (Movantik) 25 mg PO QAM PRN pain 08/06/22 Unknown History omeprazole magnesium 20 mg 20 mg PO DAILY reflux 08/06/22 05/23/25 History tablet,delayed release (Prilosec OTC) promethazine 25 mg tablet 25 mg PO TID PRN Nausea And 08/06/22 Unknown History Vomiting tizanidine 4 mg tablet 4 mg PO QHS muscle spasms 08/06/22 05/22/25 History cholecalciferol (vitamin D3) 50 2,000 unit PO DAILY vitamin 03/08/23 05/23/25 History mcg (2,000 unit) capsule blood-glucose,mold stacker,cont #1 ea 10/10/23 Unknown Rx (Dexcom G7 Online Education Manager) melatonin 10 mg capsule 10 mg PO HS PRN insomnia 12/13/23 05/22/25 History insulin glargine-yfgn 100 unit/mL 50 unit (0.5 mL) subcut DAILY #0 mL 09/11/24 05/23/25 Rx (3 mL) subcutaneous pen Dexcom G7 Sensor (blood-glucose #3 ea 09/17/24 Unknown Rx sensor) insulin lispro 100 unit/mL 35 unit subcut TIDCM 10/15/24 05/23/25 History subcutaneous pen (Humalog KwikPen (U-100) Insulin) albuterol sulfate 90 mcg/actuation 2 puff inhalation Q6H PRN 12/01/24 Unknown Rx aerosol inhaler (Ventolin HFA) shortness of breath or wheezing #6.7 grams budesonide-formoterol HFA 160 2 puff inhalation BID #10.2 grams 12/01/24 Unknown Rx mcg-4.5 mcg/actuation aerosol inhaler (Symbicort) apixaban 5 mg tablet (Eliquis) See Rx Instructions .Route 01/29/25 Unknown Rx .COMPLEX blood thinner #180 tabs atorvastatin 80 mg tablet See Rx Instructions .Route 01/29/25 05/22/25 Rx .COMPLEX cholesterol #90 TABLETS carvedilol 25 mg tablet 25 mg PO BID blood pressure #180 01/29/25 05/23/25 Rx tabs clopidogrel 75 mg tablet (Plavix) 75 mg PO DAILY anti platelet #90 01/29/25 Unknown Rx tabs hydrochlorothiazide 25 mg tablet 25 mg PO QAM #90 tabs 01/29/25 05/22/25 Rx isosorbide mononitrate 30 mg See Rx Instructions .Route 01/29/25 05/23/25 Rx tablet,extended release 24 hr .COMPLEX heart #360 TABLETS sacubitril 97 mg-valsartan 103 mg 1 tab PO BID heart #180 tabs 01/29/25 05/23/25 Rx tablet (Entresto) spironolactone 50 mg tablet 50 mg PO DAILY #90 TABLETS 01/29/25 05/23/25 Rx methimazole 10 mg tablet 10 mg PO DAILY thyroid #90 tabs 03/13/25 05/23/25 Rx CPAP - Continuous Positive Airway 03/26/25 Unknown History Pressure([facility] INFORMATIONAL USE ONLY) phenazopyridine 200 mg tablet 200 mg PO TID 6 doses #6 tabs 05/21/25 05/23/25 Rx (Pyridium) nitrofurantoin 100 mg PO BID 05/23/25 05/23/25 History monohydrate/macrocrystals 100 mg capsule Allergy/AdvReac Type Severity Reaction Status Date / Time amoxicillin trihydrate (From AdvReac Vomiting Verified 05/23/25 10:58 Augmentin) potassium clavulanate (From AdvReac Vomiting Verified 05/23/25 10:58 Augmentin) Family History Father Myocardial infarction Cancer prostate, leukemia Agent orange exposure Diabetes Sister Diabetes COPD (chronic obstructive pulmonary disease) Mother CVA (cerebral vascular accident) Hypertension Surgical History History of bladder surgery (~09/2023) History of cholecystectomy History of appendectomy History of coronary artery stent placement (05/19/21) Status post insertion of nerve stimulator History of laparoscopy History of tonsillectomy History of cholecystectomy (1991) History of hysterectomy History of left heart catheterization (09/14/21) History of back surgery Social History household members: significant other current occupational status: employed Smoking Status: Former smoker how long ago did patient quit smoking: Quit 1990, smoke 2 ppd since teen until quit. alcohol intake: current alcohol intake frequency: holidays/special occasions only substance use type: does not use caffeine: Yes EXAM Physical Exam Const Vital Signs: 05/23/25 10:57 05/23/25 10:58 05/23/25 15:26 Temperature 97.9 F Temperature Source Temporal Pulse Rate 91 85 Respiratory Rate 14 Blood Pressure 186/110 H 183/115 H 173/95 H Blood Pressure Mean 135 137 121 Pulse Ox 98 100 Oxygen Delivery Method Room Air Room Air MDM MDM MDM Narrative Medical decision making narrative: 54-year-old female presents for evaluation of suprapubic abdominal pain. Patient has a past medical history of COPD, CHF, thyroid disease, DM2, HTN, previous hysterectomy. Patient states for the past 2 weeks she has been having suprapubic abdominal pain. States that she was prescribed Macrobid and Pyridium. She states she has not followed up with her primary care physician. The pressure and pain has continued. She does not have an YOUTUBER. She followed back up with urgent care today who told her to come to the ED for concerns of bladder prolapse. Differential diagnosis includes but is not limited to UTI, pyelonephritis, bladder prolapse, electrolyte abnormality, colitis, urolithiasis NS bolus, Zofran, morphine. Ordered for symptoms. Laboratory workup ordered including CT abdomen and pelvis. Will perform a pelvic exam. Patient could not tolerate pelvic exam. She would not let me insert the spectrum. Therefore I was unable to determine if patient has a prolapse or fistula or any other findings. CBC without leukocytosis or anemia. BMP relatively unremarkable except for hyperglycemia. Patient is a known diabetic. UA positive for UTI. Urine culture sent. Previous urine cultures have grown out E. coli and Enterococcus. Pansensitive. CT abdomen pelvis shows mildly dilated splenic vein and portal confluence of uncertain etiology. Can be seen in portal hypertension. Fatty infiltration of the liver. Right proximal and mid ureter is mildly dilated, without obstructing radiopaque calculus. Distal right ureter is normal. Nonobstructing calculi in the right kidney inferior pole. At this point in time, I suspect patient's symptoms are likely to UTI. Treat her for pyelonephritis given the clinical presentation. On reevaluation, patient's pain has improved. She is comfortable. She has been hypertensive here in the emergency department, she has a history of this as well as I think pain is a component. Was educated to monitor this closely. She confirmed understanding. She is asymptomatic from the hypertension. Patient was updated of all the results and the plan. She confirmed understanding. Follow-up with PCP and YOUTUBER. Impression: 1. UTI with concern for pyelonephritis 2. Suprapubic abdominal pain Lab Data Labs: Laboratory Results - last 24 hr 05/23/25 05/23/25 13:35 13:51 WBC 4.5 RBC 4.23 Hgb 13.1 Hct 38.9 MCV 92.0 MCH 31.0 MCHC 33.7 RDW Std Deviation 45.3 H RDW Coeff of Tomi 13.7 Plt Count 196 MPV 10.1 Immature Gran % (Auto) 0.200 Neut % (Auto) 41.2 L Lymph % (Auto) 49.1 H Williams % (Auto) 7.5 Eos % (Auto) 1.3 Baso % (Auto) 0.7 Absolute Neuts (auto) 1.9 L Absolute Lymphs (auto) 2.22 Nucleated RBC % 0 Sodium 138 Potassium 3.3 Chloride 104 Carbon Dioxide 20.7 L Anion Gap 13 BUN 14 Creatinine 0.65 L Estim Creat Clear Calc 107.11 Est GFR (MDRD) Non-Af 104 BUN/Creatinine Ratio 20.8 H Glucose 272 H Calcium 9.2 Urine Color SEE COMMENT BELOW Urine Clarity Cloudy Urine pH 5.0 Ur Specific [place] 1.020 Urine Protein 30 H Urine Glucose (UA) 1000 H Urine Ketones 50 H Urine Occult Blood 150 H Urine Nitrite Positive H Urine Bilirubin 3 H Urine Urobilinogen 8 H Ur Leukocyte Esterase 500 H Urine RBC 25-50 SEEN Urine WBC >100 SEEN Ur Squamous Epith Cells 10-25 SEEN Urine Bacteria 2+ Urine Mucus 0 SEEN Urine Yeast 1+ Radiography Diagnostic Testing: Clinical Impression(s) from Imaging Studies Abdomen/Pelvis CT 05/23/25 14:10 IMPRESSION: 1. Mildly dilated splenic vein, portal confluence, of uncertain etiology. This can be seen in portal hypertension. 2. Mild fatty infiltration of the liver. 3. Right proximal and mid ureter is mildly dilated, without obstructing radiopaque calculus. Distal right ureter is normal. 4. Nonobstructing calculi in the right kidney inferior pole. Reading Location: [id number] Discharge Plan Triage Chief Complaint: Complaint ED Provider: Tam Robins Dx/Rx/DC Orders Prescriptions: No Action melatonin 10 mg capsule 10 mg PO HS PRN (Reason: insomnia) Eliquis 5 mg tablet See Rx Instructions .ROUTE .COMPLEX Qty: 180 3RF Dose Instruction: take 1 tablet by mouth twice a day Patient Comments: held off taking due to dental procedure Rx Instructions: take 1 tablet by mouth twice a day atorvastatin 80 mg tablet See Rx Instructions .ROUTE .COMPLEX Qty: 90 3RF Dose Instruction: take 1 tablet by mouth at bedtime Rx Instructions: take 1 tablet by mouth at bedtime carvedilol 25 mg tablet 25 mg PO BID Qty: 180 3RF Rx Instructions: must administer with a meal/food clopidogrel [Plavix] 75 mg tablet 75 mg PO DAILY Qty: 90 3RF Patient Comments: held off taking due to dental procedure isosorbide mononitrate 30 mg tablet extended release 24 hr See Rx Instructions .ROUTE .COMPLEX Qty: 360 0RF Dose Instruction: take 1 tablet by mouth once daily Rx Instructions: take 1 tablet by mouth once daily Entresto 97-103 mg tablet 1 tab PO BID Qty: 180 3RF spironolactone 50 mg tablet 50 mg PO DAILY Qty: 90 3RF hydrochlorothiazide 25 mg tablet 25 mg PO QAM Qty: 90 3RF tizanidine 4 mg tablet 4 mg PO QHS diphenhydramine HCl 25 mg Tablet 25 mg PO Q4H PRN (Reason: Allergy Symptoms) promethazine 25 mg tablet 25 mg PO TID PRN (Reason: Nausea And Vomiting) hydrocodone-acetaminophen 5-325 mg tablet 1 tab PO BID PRN (Reason: pain) omeprazole magnesium [Prilosec OTC] 20 mg tablet,delayed release (DR/EC) 20 mg PO DAILY Movantik 25 mg tablet 25 mg PO QAM PRN (Reason: pain) Rx Instructions: must be taken on empty stomach; no food 1 hr after or 2-3 hrs before dose insulin glargine-yfgn 100 unit/mL (3 mL) Insulin Pen 50 unit subcut DAILY Qty: 0 0RF (DME) CPAP - Continuous Positive Airway Pressure([facility] INFORMATIONAL USE ONLY) 9CM See Rx Instructions .Route .MEDSUPPLY Rx Instructions: CPAP 9CM DASCO RAND FULL FACE-S/M CUSHION insulin lispro [Humalog KwikPen Insulin] 100 unit/mL Insulin Pen 35 unit subcut TIDCM albuterol sulfate [Ventolin HFA] 90 mcg/actuation HFA aerosol inhaler 2 puff inhalation Q6H PRN (Reason: shortness of breath or wheezing) Qty: 6.7 0RF budesonide-formoterol [Symbicort] 160-4.5 mcg/actuation HFA aerosol inhaler 2 puff inhalation BID Qty: 10.2 0RF Patient Comments: prn Rx Instructions: Gargle with water and spit out water after use phenazopyridine [Pyridium] 200 mg tablet 200 mg PO TID Qty: 6 0RF nitrofurantoin monohyd/m-cryst 100 mg capsule 100 mg PO BID Patient Comments: finished today (DME) pen needle, diabetic [BD Ultra-Fine [place] Pen Needle] 32 gauge x 5/32 needle See Rx Instructions .Route Qty: 100 5RF Rx Instructions: 4x/day cholecalciferol (vitamin D3) 50 mcg (2,000 unit) capsule 2,000 unit PO DAILY Patient Comments: PT TAKES WHEN SHE REMEMBERS (DME) Dexcom G7 Online Education Manager Misc See Rx Instructions .Route Qty: 1 0RF Rx Instructions: As directed (DME) Dexcom G7 Sensor Device See Rx Instructions .Route Qty: 3 5RF Rx Instructions: 1 sensor q 14 days methimazole 10 mg tablet 10 mg PO DAILY Qty: 90 1RF Primary Care Provider: Margo Tatum Referrals: Margo Tatum, [Primary Care Provider, Family Practice] Print Language: Estonian
[2025-05-23] MEDS: 0.9% Normal Saline (1000mL) 1,000 ML 999 ML IV (13:32)
[2025-05-23 13:44] LABS: Hematocrit 38.9 % (37-47); Hemoglobin 13.1 g/dL (12.0-15.0); Immature Granulocytes Count 0.010 X10^3/uL (0.0-0.0); Mean Corp Hgb Conc 33.7 g/dL (32-36); Mean Corpuscular Volume 92.0 fL (81-99); Mean Platelet Vol. 10.1 fl (6.2-12.0); NRBC Flagged by Analyzer 0 % (0-5); Platelet Count 196 K/mm3 (150-450); RBC Distribution Width CV 13.7 % (11.6-14.6); RBC Distribution Width SD 45.3 fl (35.1-43.9); Red Blood Count 4.23 M/mm3 (4.2-5.4); White Blood Count 4.5 K/mm3 (4.4-11.0)
[2025-05-23 13:55] LABS: Mucous, Urine 0 SEEN /hpf (<or=2+)
[2025-05-23 14:00] LABS: Glucose, Dipstick 1000 mg/dl (Normal); Ketone-Dipstick 50 mg/dl (Negative); Leukocyte Esterase-Dipstick 500 /ul (Negative); Nitrite-Dipstick Positive (Negative); Occult Blood-Urine 150 /ul (Negative); Protein-Dipstick 30 mg/dl (Negative); Specific Gravity, Urine 1.020 (1.002-1.030)
[2025-05-23 14:02] LABS: Anion Gap 13 (5-15); BUN 14 mg/dL (4-19); BUN/Creat Ratio 20.8 RATIO (10-20); Calcium,Total 9.2 mg/dL (7.6-11.0); Carbon Dioxide 20.7 mmol/L (21.0-32.0); Chloride 104 mmol/L (98-108); Estimated Creatinine Clearance 107.11 ml/min (50-250); Glucose 272 mg/dL (70-99); Potassium 3.3 mmol/L (3.3-5.1)
[2025-05-23 14:10] LABS: Color, Urine SEE COMMENT BELOW (Yellow); Urine Bilirubin Dipstick 3 mg/dL (Negative)
--- NOTE | 2025-05-23 14:10 | CT_ITS ---
PROCEDURE: ABDOMEN/PELVIS W IV CONT ONLY 05/23/2025 REASON FOR EXAM: SUPRAPUBIC ABDOMINAL PAIN TECHNIQUE: Procedure Code: [id number] Modality: CT Procedure: ABDOMEN/PELVIS W IV CONT ONLY Coronal and Sagittal reconstruction series were provided. CONTRAST: Isovue-300 VOLUME: 96 mL One or more dose reduction techniques were used (e.g., Automated exposure control, adjustment of the mA and/or kV according to patient size, use of iterative reconstruction technique. RADIATION DOSE SUMMARY: CTDlvol: 22.77 mGy DLP: 1798.43 mGycm COMPARISON: 08/26/2023 FINDINGS: Lung bases: Mild atelectasis Liver: Mild fatty infiltration. Gallbladder: Cholecystectomy. Spleen: Normal size. Splenic vein is mildly prominent.. Pancreas: Mild fatty atrophy. Adrenals: Normal Kidneys: Nonobstructing calculi at the inferior pole right kidney. No stefani hydronephrosis. Right proximal and mid ureter is mildly dilated, without radiopaque ureteral calculus. The distal portion is normal. Left kidney and ureter are unremarkable. Bladder: Nondistended. Mild prominence of bladder wall. Reproductive Organs: Hysterectomy changes. Bowel: Diffuse diverticulosis without CT evidence of diverticulitis. Appendix: Not definitely visualized. Lymph nodes: No suspicious lymph node enlargement. Vasculature: Mildly prominent appearance of portal confluence. Peritoneum / Retroperitoneum: No ascites. Bones: Laminectomy L5. Neurostimulator device. CT/Abdomen/Pelvis W IV Cont ONLY IMPRESSION: 1. Mildly dilated splenic vein, portal confluence, of uncertain etiology. This can be seen in portal hypertension. 2. Mild fatty infiltration of the liver. 3. Right proximal and mid ureter is mildly dilated, without obstructing radiopa que calculus. Distal right ureter is normal. 4. Nonobstructing calculi in the right kidney inferior pole. Reading Location: [id number]
[2025-05-23 14:13] LABS: Red Blood Cells-Urine 25-50 SEEN /hpf (0-5); Squamous Epithelial Cells - UA 10-25 SEEN /hpf (5-10); Yeast-Urine 1+ /hpf (None Seen)
[2025-05-23 15:26] VITALS: BP 173/95; PULSE 85; O2SAT 100
[2025-05-23 15:49] VITALS: BP 170/99; PULSE 86; RESP 16; TEMP 36.6; O2SAT 99
== END 2025-05-23 15:52 | disposition home or self-care (01) ==
PROVIDERS: Emergency Provider Surgery; PCP Family Medicine; Visit Provider Surgery
DX: N20.0 Calculus of kidney (principal); I11.0 Hypertensive heart disease with heart failure; I50.22 Chronic systolic (congestive) heart failure; I48.0 Paroxysmal atrial fibrillation; E11.9 Type 2 diabetes mellitus without complications; Z79.4 Long term (current) use of insulin; F17.210 Nicotine dependence, cigarettes, uncomplicated; Z79.01 Long term (current) use of anticoagulants; Z79.02 Long term (current) use of antithrombotics/antiplatelets; Z79.899 Other long term (current) drug therapy; Z86.16 Personal history of COVID-19
CPT/HCPCS: 74177; 80048; 81001; 85025; 87086; 87088; 96361; 96374; 96375; 99282; Q9967; J2405

== ENCOUNTER → 2025-05-23 | Outpatient (CLI) | payer OTHER, SELFPAY ==
[2024-01-03 09:13] VITALS: BMI 35.5
== END | disposition home or self-care (01) ==
LOC: LABSPEC 12:57
PROVIDERS: PCP Family Medicine; Referring Provider Physician Assistant Surgical; Visit Provider Physician Assistant Surgical
DX: R30.0 Dysuria (principal)
CPT/HCPCS: 87086; 87088